=== PATIENT | male | born 1990 | race Caucasian/White ===

== ENCOUNTER 2023-01-31 10:54 | Outpatient (OUT) | payer MEDICARE, MEDICAID, SELFPAY ==
--- NOTE | 2023-01-31 11:04 | XR_ITS ---
[address] [address] Patient Name: JOHNNY DEVINE MRN: [id number] date: 1990 Sex: M Assigned Patient Location: RAD Current Patient Location: [facility] Accession/Order Number: [id number] Exam Date: 01/31/2023 11:15 Report Date: 01/31/2023 12:09 At the request of: AMINA CRANE Procedure: XR DEXA axial skeleton EXAMINATION: XR DEXA axial skeleton HISTORY: Osteoporosis COMPARISON: DEXA bone densitometry 12/27/2020 TECHNIQUE: Dual-energy X-ray absorptiometry (DXA) was performed. FINDINGS: SPINE ANALYSIS: Average bone mineral density is 0.880 g/cm2. T-score (standard deviation relative to young adult mean): -2.8 . -0.9% change since prior study. HIP ANALYSIS: Lowest bone mineral density is within the femoral trochanter, 0.709 g/cm2. T-score (standard deviation relative to young adult mean): -2.0 . -5.9% change since prior study. IMPRESSION: [employer] Classification: Osteoporosis - High Fracture Risk Electronically authenticated by: EPIFANIO NYE Date: 01/31/2023 12:09
== END 2023-01-31 10:55 ==
PROVIDERS: PCP Family Medicine; Visit Provider Family Medicine
DX: M81.0 Age-related osteoporosis without current pathological fracture (principal)
CPT/HCPCS: 77080

== ENCOUNTER 2023-02-28 06:57 | Outpatient (OUT) | payer MEDICARE, MEDICAID, SELFPAY ==
[2023-02-28 07:40] LABS: Valproic Acid 71.9 ug/mL (50.0-100.0)
== END 2023-02-28 06:58 | disposition home or self-care (01) ==
LOC: LAB 06:57
PROVIDERS: PCP Family Medicine; Visit Provider Family Medicine
DX: Z79.899 Other long term (current) drug therapy (principal)
CPT/HCPCS: 36415; 80164

== ENCOUNTER 2023-08-23 20:55 | Emergency (ER) | payer MEDICARE, MEDICAID, SELFPAY ==
[2023-08-23] VITALS (27 sets, daily range): BP systolic 112–147; BP diastolic 80–111; PULSE 60–93; RESP 13–31; TEMP 36.6; O2SAT 67–100
--- NOTE | 2023-08-23 21:13 | XR_ITS ---
[address] [address] Patient Name: JOHNNY DEVINE MRN: [id number] date: 1990 Sex: M Assigned Patient Location: ER Current Patient Location: ER Accession/Order Number: [id number] Exam Date: 08/23/2023 22:20 Report Date: 08/23/2023 22:40 At the request of: IBAN GRIFFITH Procedure: XR chest 1V EXAM: XR chest 1V HISTORY: Cough COMPARISON: Chest x-ray 09/15/2020 TECHNIQUE: Single AP radiograph of the chest FINDINGS: Low lung volumes. No pneumothorax, pleural effusion or consolidation. Normal heart size. No acute osseous abnormality. XR/XR chest 1V IMPRESSION: No acute cardiopulmonary process. Electronically authenticated by: ADAM GOTTLIEB Date: 08/23/2023 22:40
--- NOTE | 2023-08-23 21:13 | ECG_ITS ---
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
--- NOTE | 2023-08-23 21:19 | ED.GENADUL1 ---
Documented by User: BETI Yoder 08/23/23 22:50 HPI - General Adult General Chief complaint: Altered Mental Status Stated complaint: Altered Mental Status Time Seen by Provider: 08/23/23 21:13 Source: patient Mode of arrival: ambulance Limitations: no limitations History of Present Illness HPI narrative: Patient is a 33-year-old male with a history of profound developmental delay who presents to the emergency department by ambulance for the evaluation of nasal breathing and weakness. His residential called to report that the patient had significant nasal congestion and they were concerned about his breathing, he was ambulatory but seemed less responsive with no falls or injuries. Patient's aunt is his guardian, she also called the ER to say that she visited the patient 2 days ago and thought that he was developing upper respiratory symptoms but the caregivers at the residential were not concerned for this. Patient has had no objective fevers. Vital signs at the residential were normal. EMS reports decreased responsiveness although on arrival to the ER, the patient is hitting his abdomen which is one of his typical behaviors. Related Data Home Medications Medication Instructions Recorded Confirmed acetaminophen 325 mg tablet 650 mg PO Q4H PRN fever or pain 08/23/23 08/23/23 (Tactinal) atorvastatin 10 mg tablet 10 mg PO DAILY 08/23/23 08/23/23 benzonatate 100 mg capsule 100 mg PO Q8H PRN cough 08/23/23 08/23/23 bisacodyl 10 mg rectal suppository 10 mg DC Q5D PRN constipation 08/23/23 08/23/23 calcium carbonate 500 mg-vitamin 1 tab PO BID 08/23/23 08/23/23 D3 5 mcg (200 unit) tablet (Oyster Shell Calcium-Vitamin D3) clonidine HCl 0.2 mg tablet 0.2 mg PO TID 08/23/23 08/23/23 denosumab 60 mg/mL subcutaneous 60 mg subcut .[id number] 08/23/23 08/23/23 syringe (Prolia) dihydroxyaluminum sodium carb 334 668 mg PO Q4H PRN upset stomach 08/23/23 08/23/23 mg chewable tablet divalproex 125 mg capsule,delayed 500 mg PO BID 08/23/23 08/23/23 release sprinkle famotidine 20 mg tablet 20 mg PO BID 08/23/23 08/23/23 fluticasone propionate 50 2 spray intranasal .every morning 08/23/23 08/23/23 mcg/actuation nasal spray,suspension guaifenesin 400 mg tablet (Chest 400 mg PO .daily morning 08/23/23 08/23/23 Congestion Relief) levothyroxine 112 mcg tablet 112 mcg PO DAILY 08/23/23 08/23/23 linaclotide 290 mcg capsule 290 mcg PO DAILY 08/23/23 08/23/23 (Linzess) lithium carbonate 300 mg capsule 300 mg PO BID 08/23/23 08/23/23 loperamide 2 mg capsule 2 mg PO .COMPLEX PRN loose stool 08/23/23 08/23/23 (Anti-Diarrheal (loperamide)) lorazepam 2 mg tablet 2 mg PO TID-QID 08/23/23 08/23/23 naltrexone 50 mg tablet 100 mg PO BID 08/23/23 08/23/23 polyethylene glycol 3350 17 17 g PO DAILY 08/23/23 08/23/23 gram/dose oral powder quetiapine 200 mg tablet 200 mg PO TID 08/23/23 08/23/23 risperidone 3 mg tablet 3 mg PO BID 08/23/23 08/23/23 sertraline 100 mg tablet 100 mg PO DAILY 08/23/23 08/23/23 sertraline 50 mg tablet 50 mg PO DAILY 08/23/23 08/23/23 Allergies Allergy/AdvReac Type Severity Reaction Status Date / Time clarithromycin [From Biaxin] AdvReac Severe Abdominal Verified 08/23/23 21:37 Pain biaxin AdvReac Abdominal Uncoded 08/23/23 21:36 Pain Review of Systems ROS Constitutional Denies: fever Ears, nose, mouth, and throat Reports: nasal congestion Respiratory Reports: cough; Denies: shortness of breath Gastrointestinal Denies: vomiting or diarrhea Integumentary/Breast Denies: rash Endocrine Denies: excessive urination [facility] Medical History (Updated 08/24/23 @ 01:56 by Shanna Alanis MD) 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 - Other developmental disorders of scholastic skills (ICD-10) Osteoporosis ?M81.0 - Age-related osteoporosis without current pathological fracture (ICD-10) Cataract ?H26.9 - Unspecified cataract (ICD-10) ADHD ?F90.9 - Attention-deficit hyperactivity disorder, unspecified type (ICD-10) Bipolar 1 disorder ?F31.9 - Bipolar disorder, unspecified (ICD-10) High cholesterol ?E78.00 - Pure hypercholesterolemia, unspecified (ICD-10) Hypothyroid ?E03.9 - Hypothyroidism, unspecified (ICD-10) OCD (obsessive compulsive disorder) ?F42.9 - Obsessive-compulsive disorder, unspecified (ICD-10) Autism ?F84.0 - Autistic disorder (ICD-10) Exam Narrative Exam Narrative: Gen.: Awake, alert, in no distress Head: Normocephalic, atraumatic; well-healed significant scar to the forehead ENT: Moist mucous membranes; dried rhinorrhea in the nostrils with nasal respiration Respiratory: No respiratory distress, lungs clear bilaterally; no wheezing or rhonchi Cardio: Regular rate and rhythm Gastrointestinal: Abdomen is soft, nondistended and nontender to palpation Extremities: Moves extremities equally Psych: Nonverbal, moves extremities independently, does not respond to commands Neuro: No focal neuro deficit Skin: Warm, dry, intact Constitutional Vital Signs, click to edit/add: Last Vital Signs Temp 97.8 F 08/23/23 20:57 Pulse 90 08/24/23 01:20 Resp 17 08/24/23 01:20 BP 115/88 08/24/23 01:30 Pulse Ox 89 L 08/24/23 01:30 O2 Del Method Room Air 08/23/23 21:28 Course Vital Signs Vital signs: Vital Signs Temperature 97.8 F 08/23/23 20:57 Pulse Rate 77 08/23/23 20:57 Respiratory Rate 18 08/23/23 20:57 Pulse Oximetry 99 08/23/23 20:57 Temperature 97.8 F 08/23/23 20:57 Pulse Rate 90 08/24/23 01:20 Respiratory Rate 17 08/24/23 01:20 Blood Pressure 115/88 08/24/23 01:30 Pulse Oximetry 89 L 08/24/23 01:30 Oxygen Delivery Method Room Air 08/23/23 21:28 Medical Decision Making MDM Narrative Medical decision making narrative: 2250: IV established with labs drawn, blood cultures. Straight catheterization for urine was unsuccessful due to the patient's genital anatomy. Urine bag was applied. Chest x-ray shows no evidence of acute cardiopulmonary changes. Labs are pending. Vital signs are stable at this time. Case is turned over to attending physician for disposition at this time. Medical Records Medical records reviewed: Yes I reviewed the patient's medical records Lab Data Lab results reviewed: Yes I reviewed the patient's lab results Labs: Lab Results 08/23/23 08/23/23 08/24/23 Range/Units 21:30 21:59 01:25 WBC 7.1 (4.0-11.0) 10^3/uL RBC 3.95 L (4.70-6.10) 10^6/uL Hgb 10.7 L (14.0-18.0) g/dL Hct 35.0 L (42.0-54.0) % MCV 88.6 (80.0-94.0) fL MCH 27.1 (25.9-34.0) pg MCHC 30.6 (29.9-35.2) g/dL RDW 13.8 (11.0-15.0) % Plt Count 164 (150-450) 10^3/uL MPV 10.2 (9.5-13.5) fL Neut % (Auto) 62.6 (43.0-75.0) % Lymph % (Auto) 22.1 (20.5-60.0) % Bibb % (Auto) 11.8 (1.7-12.0) % Eos % (Auto) 2.3 (0.9-7.0) % Baso % (Auto) 0.4 (0.2-2.0) % Neut # (Auto) 4.4 (1.4-6.5) 10^3/uL Lymph # (Auto) 1.6 (1.2-3.8) 10^3/uL Bibb # (Auto) 0.8 (0.3-0.8) 10^3/uL Eos # (Auto) 0.2 (0.0-0.7) 10^3/uL Baso # (Auto) 0.0 (0.0-0.1) 10^3/uL Abs Immat Gran (auto) 0.06 H (0.00-0.03) 10^3/uL Imm/Tot Granulo (auto) 0.8 H (0.0-0.5) % PT 11.4 (9.0-11.6) sec INR 1.08 VBG pH 7.370 (7.330-7.430) VBG pCO2 47.5 (40.0-52.0) mmHg Sodium 138 (136-145) mmol/L Potassium 4.2 (3.5-5.1) mmol/L Chloride 105 (98-107) mmol/L Carbon Dioxide 28.2 (21.0-32.0) mmol/L Anion Gap 9.0 BUN 19.0 H (7.0-18.0) mg/dL Creatinine 0.84 (0.70-1.30) mg/dL Est GFR ( Amer) >60 (>=60) Est GFR (Non-Af Amer) >60 (>=60) BUN/Creatinine Ratio 22.6 Glucose 110 H (74-106) mg/dL Lactate 1.2 (0.4-2.0) mmol/L Calcium 8.9 (8.5-10.1) mg/dL Total Bilirubin 0.3 (0.2-1.0) mg/dL AST 17 (15-37) U/L ALT 19 (16-63) U/L Alkaline Phosphatase 47 (46-116) U/L Troponin I High Sens 8.3 (4.0-76.1) pg/mL Total Protein 7.4 (6.4-8.2) g/dL Albumin 3.2 L (3.4-5.0) g/dL Globulin 4.2 g/dL Albumin/Globulin Ratio 0.8 Urine Color Yellow (YELLOW) Urine Clarity Clear (CLEAR) Urine pH 7.0 (5.0-9.0) Ur Specific [place] 1.010 (1.005-1.025) Urine Protein Negative (NEG/TRACE) mg/dL Urine Glucose (UA) Negative (NEGATIVE) mg/dL Urine Ketones Negative (NEGATIVE) mg/dL Urine Occult Blood Negative (NEGATIVE) Urine Nitrite Negative (NEGATIVE) Urine Bilirubin Negative (NEGATIVE) Urine Urobilinogen 0.2 (0.2-1.0) EU/dL Ur Leukocyte Esterase Negative (NEGATIVE) Adenovirus (PCR) Not detected (NOT DETECTE) C. pneumoniae DNA (PCR) Not detected (NOT DETECTE) Coronavirus Type OC43 Not detected (NOT DETECTE) Coronavirus Type HKU1 Not detected (NOT DETECTE) Coronavirus Type 229E Not detected (NOT DETECTE) Coronavirus Type NL63 Not detected (NOT DETECTE) Human Metapneumovir PCR Not detected (NOT DETECTE) M. pneumoniae (PCR) Not detected (NOT DETECTE) Parainfluenza PCR Not detected (NOT DETECTE) Parainfluenza 2 (PCR) Not detected (NOT DETECTE) Parainfluenza 3 (PCR) Not detected (NOT DETECTE) Parainfluenza 4 (PCR) Not detected (NOT DETECTE) RSV (RT-PCR) Not detected (NOT DETECTE) Entero/Rhino (PCR) Not detected (NOT DETECTE) SARS-CoV-2 (PCR) Not detected (NOT DETECTE) Bordetella pertussis (PCR) Not detected (NOT DETECTE) B parapertussis DNA PCR Not detected (NOT DETECTE) Influenza Type A (PCR) Not detected (NOT DETECTE) Influenza Type B (PCR) Not detected (NOT DETECTE) Imaging Data Chest x-ray: Radiologist's impression: ITS Impressions Chest X-Ray 08/23/23 21:13 IMPRESSION: No acute cardiopulmonary process. Electronically authenticated by: ADAM GOTTLIEB Date: 08/23/2023 22:40 Discharge Plan Discharge Chief Complaint: Altered Mental Status Clinical Impression: Weakness, Viral URI Patient Disposition: Home, Self-Care Time of Disposition Decision: 01:56 Condition: Good Prescriptions / Home Meds: No Action atorvastatin 10 mg tablet 10 mg PO DAILY clonidine HCl 0.2 mg tablet 0.2 mg PO TID divalproex 125 mg capsule, delayed rel sprinkle 500 mg PO BID Patient Comments: takes 4 caps bid famotidine 20 mg tablet 20 mg PO BID fluticasone propionate 50 mcg/actuation spray,suspension 2 spray INTRANASAL .every morning guaifenesin [Chest Congestion Relief] 400 mg tablet 400 mg PO .daily morning levothyroxine 112 mcg tablet 112 mcg PO DAILY risperidone 3 mg tablet 3 mg PO BID sertraline 50 mg tablet 50 mg PO DAILY Patient Comments: takes with 100mg tab sertraline 100 mg tablet 100 mg PO DAILY Patient Comments: take with a 50mg tab Linzess 290 mcg capsule 290 mcg PO DAILY lithium carbonate 300 mg capsule 300 mg PO BID naltrexone 50 mg tablet 100 mg PO BID lorazepam 2 mg tablet 2 mg PO TID-QID calcium carbonate-vitamin D3 [Oyster Shell Calcium-Vit D3] 500 mg-5 mcg (200 unit) tablet 1 tab PO BID polyethylene glycol 3350 17 gram/dose powder 17 g PO DAILY quetiapine 200 mg tablet 200 mg PO TID Prolia 60 mg/mL syringe 60 mg SUBCUT .[id number] benzonatate 100 mg capsule 100 mg PO Q8H PRN (Reason: cough) bisacodyl 10 mg suppository 10 mg DC Q5D PRN (Reason: constipation) loperamide [Anti-Diarrheal (loperamide)] 2 mg capsule 2 mg PO .COMPLEX PRN (Reason: loose stool) Rx Instructions: 2 mg orally max of 8 [id number] PRN; acetaminophen [Tactinal] 325 mg tablet 650 mg PO Q4H PRN (Reason: fever or pain) dihydroxyaluminum sodium carb 334 mg tablet,chewable 668 mg PO Q4H PRN (Reason: upset stomach) Instructions: Upper Respiratory Infection (ED) Stand Alone Forms: Portal Instructions Referrals: AMINA CRANE DO [Primary Care Provider] - 1 week Documented by User: Shanna Alanis MD 08/24/23 01:56 HPI - General Adult General Chief complaint: Altered Mental Status Stated complaint: Altered Mental Status Time Seen by Provider: 08/23/23 21:13 Related Data Home Medications Medication Instructions Recorded Confirmed acetaminophen 325 mg tablet 650 mg PO Q4H PRN fever or pain 08/23/23 08/23/23 (Tactinal) atorvastatin 10 mg tablet 10 mg PO DAILY 08/23/23 08/23/23 benzonatate 100 mg capsule 100 mg PO Q8H PRN cough 08/23/23 08/23/23 bisacodyl 10 mg rectal suppository 10 mg DC Q5D PRN constipation 08/23/23 08/23/23 calcium carbonate 500 mg-vitamin 1 tab PO BID 08/23/23 08/23/23 D3 5 mcg (200 unit) tablet (Oyster Shell Calcium-Vitamin D3) clonidine HCl 0.2 mg tablet 0.2 mg PO TID 08/23/23 08/23/23 denosumab 60 mg/mL subcutaneous 60 mg subcut .[id number] 08/23/23 08/23/23 syringe (Prolia) dihydroxyaluminum sodium carb 334 668 mg PO Q4H PRN upset stomach 08/23/23 08/23/23 mg chewable tablet divalproex 125 mg capsule,delayed 500 mg PO BID 08/23/23 08/23/23 release sprinkle famotidine 20 mg tablet 20 mg PO BID 08/23/23 08/23/23 fluticasone propionate 50 2 spray intranasal .every morning 08/23/23 08/23/23 mcg/actuation nasal spray,suspension guaifenesin 400 mg tablet (Chest 400 mg PO .daily morning 08/23/23 08/23/23 Congestion Relief) levothyroxine 112 mcg tablet 112 mcg PO DAILY 08/23/23 08/23/23 linaclotide 290 mcg capsule 290 mcg PO DAILY 08/23/23 08/23/23 (Linzess) lithium carbonate 300 mg capsule 300 mg PO BID 08/23/23 08/23/23 loperamide 2 mg capsule 2 mg PO .COMPLEX PRN loose stool 08/23/23 08/23/23 (Anti-Diarrheal (loperamide)) lorazepam 2 mg tablet 2 mg PO TID-QID 08/23/23 08/23/23 naltrexone 50 mg tablet 100 mg PO BID 08/23/23 08/23/23 polyethylene glycol 3350 17 17 g PO DAILY 08/23/23 08/23/23 gram/dose oral powder quetiapine 200 mg tablet 200 mg PO TID 08/23/23 08/23/23 risperidone 3 mg tablet 3 mg PO BID 08/23/23 08/23/23 sertraline 100 mg tablet 100 mg PO DAILY 08/23/23 08/23/23 sertraline 50 mg tablet 50 mg PO DAILY 08/23/23 08/23/23 Allergies Allergy/AdvReac Type Severity Reaction Status Date / Time clarithromycin [From Biaxin] AdvReac Severe Abdominal Verified 08/23/23 21:37 Pain biaxin AdvReac Abdominal Uncoded 08/23/23 21:36 Pain PFSH PFSH Medical History (Updated 08/24/23 @ 01:56 by Shanna Alanis MD) 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 - Other developmental disorders of scholastic skills (ICD-10) Osteoporosis ?M81.0 - Age-related osteoporosis without current pathological fracture (ICD-10) Cataract ?H26.9 - Unspecified cataract (ICD-10) ADHD ?F90.9 - Attention-deficit hyperactivity disorder, unspecified type (ICD-10) Bipolar 1 disorder ?F31.9 - Bipolar disorder, unspecified (ICD-10) High cholesterol ?E78.00 - Pure hypercholesterolemia, unspecified (ICD-10) Hypothyroid ?E03.9 - Hypothyroidism, unspecified (ICD-10) OCD (obsessive compulsive disorder) ?F42.9 - Obsessive-compulsive disorder, unspecified (ICD-10) Autism ?F84.0 - Autistic disorder (ICD-10) Exam Constitutional Vital Signs, click to edit/add: Last Vital Signs Temp 97.8 F 08/23/23 20:57 Pulse 90 08/24/23 01:20 Resp 17 08/24/23 01:20 BP 115/88 08/24/23 01:30 Pulse Ox 89 L 08/24/23 01:30 O2 Del Method Room Air 08/23/23 21:28 Course Vital Signs Vital signs: Vital Signs Temperature 97.8 F 08/23/23 20:57 Pulse Rate 77 08/23/23 20:57 Respiratory Rate 18 08/23/23 20:57 Pulse Oximetry 99 08/23/23 20:57 Temperature 97.8 F 08/23/23 20:57 Pulse Rate 90 08/24/23 01:20 Respiratory Rate 17 08/24/23 01:20 Blood Pressure 115/88 08/24/23 01:30 Pulse Oximetry 89 L 08/24/23 01:30 Oxygen Delivery Method Room Air 08/23/23 21:28 Medical Decision Making MDM Narrative Medical decision making narrative: 2250: IV established with labs drawn, blood cultures. Straight catheterization for urine was unsuccessful due to the patient's genital anatomy. Urine bag was applied. Chest x-ray shows no evidence of acute cardiopulmonary changes. Labs are pending. Vital signs are stable at this time. Case is turned over to attending physician for disposition at this time. Patient was seen and evaluated in conjunction with the physician neurology physician assistant. Please refer to her full H and P. The patient has a history of profound developmental delay and there was concern for upper respiratory infection and possibly infection. Emergency Department he has alert and exhibiting his typical behavior. He is nonverbal. An IV was placed and he was medicated with IV fluids. Labs are reviewed. His respiratory panel was negative. He has a normal white count, is mildly anemic, has a normal venous blood gas and electrolytes, lactic acid is normal. CXR is negative for acute findings. He was assisted to a bedside commode and urinated without difficulty. Urine was collected and sent to the lab and is clear. He received IVF and has remained afebrile and hemodynamically stable in the ED. He has not had any episodes of somnolence or hypoxia in the ED. Medical Records Medical records narrative: [place] [address] XRay Report Signed Patient: JOHNNY DEVINE MR#: [id number] : 1990 Acct:[id number] Age/Sex: 33 / M ADM Date: 08/23/23 Loc: ER Attending Dr: Ordering Physician: Iban Griffith Date of Service: 08/23/23 Procedure(s): XR chest 1V Accession Number(s): [id number] cc: AMINA CRANE D.O.; Iban Griffith~ [facility] [place] [address] Patient Name: JOHNNY DEVINE MRN: [facility]:[id number] date: 1990 Sex: M Assigned Patient Location: ER Current Patient Location: ER Accession/Order Number: [id number] Exam Date: 08/23/2023 22:20 Report Date: 08/23/2023 22:40 At the request of: IBAN GRIFFITH Procedure: XR chest 1V EXAM: XR chest 1V HISTORY: Cough COMPARISON: Chest x-ray 09/15/2020 TECHNIQUE: Single AP radiograph of the chest FINDINGS: Low lung volumes. No pneumothorax, pleural effusion or consolidation. Normal heart size. No acute osseous abnormality. XR/XR chest 1V IMPRESSION: No acute cardiopulmonary process. Electronically authenticated by: ADAM GOTTLIEB Date: 08/23/2023 22:40 Lab Data Labs: Lab Results 08/23/23 08/23/23 08/24/23 Range/Units 21:30 21:59 01:25 WBC 7.1 (4.0-11.0) 10^3/uL RBC 3.95 L (4.70-6.10) 10^6/uL Hgb 10.7 L (14.0-18.0) g/dL Hct 35.0 L (42.0-54.0) % MCV 88.6 (80.0-94.0) fL MCH 27.1 (25.9-34.0) pg MCHC 30.6 (29.9-35.2) g/dL RDW 13.8 (11.0-15.0) % Plt Count 164 (150-450) 10^3/uL MPV 10.2 (9.5-13.5) fL Neut % (Auto) 62.6 (43.0-75.0) % Lymph % (Auto) 22.1 (20.5-60.0) % Bibb % (Auto) 11.8 (1.7-12.0) % Eos % (Auto) 2.3 (0.9-7.0) % Baso % (Auto) 0.4 (0.2-2.0) % Neut # (Auto) 4.4 (1.4-6.5) 10^3/uL Lymph # (Auto) 1.6 (1.2-3.8) 10^3/uL Bibb # (Auto) 0.8 (0.3-0.8) 10^3/uL Eos # (Auto) 0.2 (0.0-0.7) 10^3/uL Baso # (Auto) 0.0 (0.0-0.1) 10^3/uL Abs Immat Gran (auto) 0.06 H (0.00-0.03) 10^3/uL Imm/Tot Granulo (auto) 0.8 H (0.0-0.5) % PT 11.4 (9.0-11.6) sec INR 1.08 VBG pH 7.370 (7.330-7.430) VBG pCO2 47.5 (40.0-52.0) mmHg Sodium 138 (136-145) mmol/L Potassium 4.2 (3.5-5.1) mmol/L Chloride 105 (98-107) mmol/L Carbon Dioxide 28.2 (21.0-32.0) mmol/L Anion Gap 9.0 BUN 19.0 H (7.0-18.0) mg/dL Creatinine 0.84 (0.70-1.30) mg/dL Est GFR ( Amer) >60 (>=60) Est GFR (Non-Af Amer) >60 (>=60) BUN/Creatinine Ratio 22.6 Glucose 110 H (74-106) mg/dL Lactate 1.2 (0.4-2.0) mmol/L Calcium 8.9 (8.5-10.1) mg/dL Total Bilirubin 0.3 (0.2-1.0) mg/dL AST 17 (15-37) U/L ALT 19 (16-63) U/L Alkaline Phosphatase 47 (46-116) U/L Troponin I High Sens 8.3 (4.0-76.1) pg/mL Total Protein 7.4 (6.4-8.2) g/dL Albumin 3.2 L (3.4-5.0) g/dL Globulin 4.2 g/dL Albumin/Globulin Ratio 0.8 Urine Color Yellow (YELLOW) Urine Clarity Clear (CLEAR) Urine pH 7.0 (5.0-9.0) Ur Specific [place] 1.010 (1.005-1.025) Urine Protein Negative (NEG/TRACE) mg/dL Urine Glucose (UA) Negative (NEGATIVE) mg/dL Urine Ketones Negative (NEGATIVE) mg/dL Urine Occult Blood Negative (NEGATIVE) Urine Nitrite Negative (NEGATIVE) Urine Bilirubin Negative (NEGATIVE) Urine Urobilinogen 0.2 (0.2-1.0) EU/dL Ur Leukocyte Esterase Negative (NEGATIVE) Adenovirus (PCR) Not detected (NOT DETECTE) C. pneumoniae DNA (PCR) Not detected (NOT DETECTE) Coronavirus Type OC43 Not detected (NOT DETECTE) Coronavirus Type HKU1 Not detected (NOT DETECTE) Coronavirus Type 229E Not detected (NOT DETECTE) Coronavirus Type NL63 Not detected (NOT DETECTE) Human Metapneumovir PCR Not detected (NOT DETECTE) M. pneumoniae (PCR) Not detected (NOT DETECTE) Parainfluenza PCR Not detected (NOT DETECTE) Parainfluenza 2 (PCR) Not detected (NOT DETECTE) Parainfluenza 3 (PCR) Not detected (NOT DETECTE) Parainfluenza 4 (PCR) Not detected (NOT DETECTE) RSV (RT-PCR) Not detected (NOT DETECTE) Entero/Rhino (PCR) Not detected (NOT DETECTE) SARS-CoV-2 (PCR) Not detected (NOT DETECTE) Bordetella pertussis (PCR) Not detected (NOT DETECTE) B parapertussis DNA PCR Not detected (NOT DETECTE) Influenza Type A (PCR) Not detected (NOT DETECTE) Influenza Type B (PCR) Not detected (NOT DETECTE) Imaging Data Chest x-ray: Radiologist's impression: ITS Impressions Chest X-Ray 08/23/23 21:13 IMPRESSION: No acute cardiopulmonary process. Electronically authenticated by: ADAM GOTTLIEB Date: 08/23/2023 22:40 ECG Data Attestation: I personally reviewed and interpreted this ECG as follows: (Since of 79 beats for minute, regular baseline due to patient movement, moderate right axis deviation, no acute ST segment elevation or T-wave inversion) Discharge Plan Discharge Chief Complaint: Altered Mental Status Clinical Impression: Weakness, Viral URI Patient Disposition: Home, Self-Care Time of Disposition Decision: 01:56 Condition: Good Prescriptions / Home Meds: No Action atorvastatin 10 mg tablet 10 mg PO DAILY clonidine HCl 0.2 mg tablet 0.2 mg PO TID divalproex 125 mg capsule, delayed rel sprinkle 500 mg PO BID Patient Comments: takes 4 caps bid famotidine 20 mg tablet 20 mg PO BID fluticasone propionate 50 mcg/actuation spray,suspension 2 spray INTRANASAL .every morning guaifenesin [Chest Congestion Relief] 400 mg tablet 400 mg PO .daily morning levothyroxine 112 mcg tablet 112 mcg PO DAILY risperidone 3 mg tablet 3 mg PO BID sertraline 50 mg tablet 50 mg PO DAILY Patient Comments: takes with 100mg tab sertraline 100 mg tablet 100 mg PO DAILY Patient Comments: take with a 50mg tab Linzess 290 mcg capsule 290 mcg PO DAILY lithium carbonate 300 mg capsule 300 mg PO BID naltrexone 50 mg tablet 100 mg PO BID lorazepam 2 mg tablet 2 mg PO TID-QID calcium carbonate-vitamin D3 [Oyster Shell Calcium-Vit D3] 500 mg-5 mcg (200 unit) tablet 1 tab PO BID polyethylene glycol 3350 17 gram/dose powder 17 g PO DAILY quetiapine 200 mg tablet 200 mg PO TID Prolia 60 mg/mL syringe 60 mg SUBCUT .[id number] benzonatate 100 mg capsule 100 mg PO Q8H PRN (Reason: cough) bisacodyl 10 mg suppository 10 mg DC Q5D PRN (Reason: constipation) loperamide [Anti-Diarrheal (loperamide)] 2 mg capsule 2 mg PO .COMPLEX PRN (Reason: loose stool) Rx Instructions: 2 mg orally max of 8 [id number] PRN; acetaminophen [Tactinal] 325 mg tablet 650 mg PO Q4H PRN (Reason: fever or pain) dihydroxyaluminum sodium carb 334 mg tablet,chewable 668 mg PO Q4H PRN (Reason: upset stomach) Instructions: Upper Respiratory Infection (ED) Stand Alone Forms: Portal Instructions Referrals: AMINA CRANE DO [Primary Care Provider] - 1 week
[2023-08-23] MEDS: 0.9 % SODIUM CHLORIDE 1,000 ML 999 ML IV (21:33)
[2023-08-23 21:52] LABS: Adenovirus NOT DETECTED (NOT DETECTE); Bordetella parapertussis NOT DETECTED (NOT DETECTE); Coronavirus 229E NOT DETECTED (NOT DETECTE); Coronavirus HKU1 NOT DETECTED (NOT DETECTE); Coronavirus NL63 NOT DETECTED (NOT DETECTE); Coronavirus OC43 NOT DETECTED (NOT DETECTE); Human Metapneumovirus NOT DETECTED (NOT DETECTE); Human Rhinovirus/Enterovirus NOT DETECTED (NOT DETECTE); Influenza A NOT DETECTED (NOT DETECTE); Influenza B NOT DETECTED (NOT DETECTE); Mycoplasma pneumoniae NOT DETECTED (NOT DETECTE); Parainfluenza Virus 1 NOT DETECTED (NOT DETECTE); Parainfluenza Virus 2 NOT DETECTED (NOT DETECTE); Parainfluenza Virus 3 NOT DETECTED (NOT DETECTE); Parainfluenza Virus 4 NOT DETECTED (NOT DETECTE); Respiratory Syncytial Virus NOT DETECTED (NOT DETECTE); SARS-CoV-2 NOT DETECTED (NOT DETECTE)
--- NOTE | 2023-08-23 22:17 | PC.NURSE ---
Pt is a resident of [facility] and is sent over today for evaluation of decreased mentation and respiratory issues. Per staff, upon waking him tonight to give his meds, he was noted to be very nasally. He got up and staff state he appeared weak and less alert than his norm.
--- NOTE | 2023-08-23 22:24 | SUR.HOLD ---
Attempted to insert a straight catheter to obtain urine sample but pt has a very inverted penis and we were unable to place catheter. Pt was shaved and a u bag placed over cleaned genitals, to get specimen.
[2023-08-23 22:30] LABS: Basophils Percent Auto 0.4 % (0.2-2.0); Eosinophils Absolute Auto 0.2 10^3/uL (0.0-0.7); Eosinophils Percent Auto 2.3 % (0.9-7.0); Hemoglobin 10.7 g/dL (14.0-18.0); Immature Granulocytes Abs Auto 0.06 10^3/uL (0.00-0.03); Immature Granulocytes Pct Auto 0.8 % (0.0-0.5); Lymphocytes Absolute Auto 1.6 10^3/uL (1.2-3.8); Lymphocytes Percent Auto 22.1 % (20.5-60.0); Mean Corpuscular HGB Conc 30.6 g/dL (29.9-35.2); Mean Corpuscular Hemoglobin 27.1 pg (25.9-34.0); Mean Corpuscular Volume 88.6 fL (80.0-94.0); Mean Platelet Volume 10.2 fL (9.5-13.5); Monocytes Absolute Auto 0.8 10^3/uL (0.3-0.8); Monocytes Percent Auto 11.8 % (1.7-12.0); Neutrophils Absolute Auto 4.4 10^3/uL (1.4-6.5); Neutrophils Percent Auto 62.6 % (43.0-75.0); PCO2 VBG 47.5 mmHg (40.0-52.0); Platelet Count 164 10^3/uL (150-450); Red Blood Count 3.95 10^6/uL (4.70-6.10); Red Cell Distribution Width 13.8 % (11.0-15.0); White Blood Count 7.1 10^3/uL (4.0-11.0)
[2023-08-23 22:43] LABS: INR 1.08; Prothrombin Time 11.4 sec (9.0-11.6)
[2023-08-23 22:50] LABS: Lactate/Lactic Acid 1.2 mmol/L (0.4-2.0)
[2023-08-23 22:56] LABS: Alanine Aminotransferase 19 U/L (16-63); Albumin Globulin Ratio 0.8; Albumin Level 3.2 g/dL (3.4-5.0); Alkaline Phosphatase 47 U/L (46-116); Aspartate Amino Transferase 17 U/L (15-37); BUN Creatinine Ratio 22.6; Bilirubin Total 0.3 mg/dL (0.2-1.0); Calcium 8.9 mg/dL (8.5-10.1); Carbon Dioxide 28.2 mmol/L (21.0-32.0); Chloride 105 mmol/L (98-107); Estimated GFR (African America >60 (>=60); Estimated GFR (Non-African Ame >60 (>=60); Globulin 4.2 g/dL; Glucose 110 mg/dL (74-106); Potassium 4.2 mmol/L (3.5-5.1); Sodium 138 mmol/L (136-145); Total Protein 7.4 g/dL (6.4-8.2); Troponin I High Sensitivity 8.3 pg/mL (4.0-76.1)
[2023-08-24] VITALS (13 sets, daily range): BP systolic 115–144; BP diastolic 83–94; PULSE 58–90; RESP 14–20; O2SAT 89–100
[2023-08-24 01:41] LABS: Bilirubin Urine NEGATIVE (NEGATIVE); Blood Urine NEGATIVE (NEGATIVE); Clarity Urine CLEAR (CLEAR); Color Urine YELLOW (YELLOW); Glucose Urine UA NEGATIVE (NEGATIVE); Ketones Urine NEGATIVE (NEGATIVE); Leukocyte Esterase Urine NEGATIVE (NEGATIVE); Nitrite Urine NEGATIVE (NEGATIVE); Protein Urine NEGATIVE (NEG/TRACE); Urobilinogen Urine 0.2 EU/dL (0.2-1.0)
[2023-08-24 01:44] LABS: Urine Microscopic Indicated NO
== END 2023-08-24 02:52 | disposition home or self-care (01) ==
PROVIDERS: Physician Assistant; Emergency Provider Emergency Medicine; PCP Family Medicine
DX: J06.9 Acute upper respiratory infection, unspecified (principal); R53.1 Weakness; F81.89 Other developmental disorders of scholastic skills; M81.0 Age-related osteoporosis without current pathological fracture; F90.9 Attention-deficit hyperactivity disorder, unspecified type; F31.9 Bipolar disorder, unspecified; E78.00 Pure hypercholesterolemia, unspecified; E03.9 Hypothyroidism, unspecified; F42.9 Obsessive-compulsive disorder, unspecified; F84.0 Autistic disorder; Z20.822 Contact with and (suspected) exposure to COVID-19; Z79.899 Other long term (current) drug therapy; Z79.890 Hormone replacement therapy
CPT/HCPCS: 0202U; 36415; 71045; 80053; 81003; 82800; 83605; 84484; 85025; 85610; 87040; 93005; 99285

== ENCOUNTER 2023-10-27 22:21 | Emergency (ER) | payer MEDICARE, MEDICAID, SELFPAY ==
[2023-10-27] VITALS (11 sets, daily range): BP systolic 142–160; BP diastolic 98–111; PULSE 89–103; RESP 15–40; TEMP 36.7; O2SAT 95–100; BMI 31.3
--- NOTE | 2023-10-27 22:26 | ECG_ITS ---
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
--- OUTSIDE RECORDS SUMMARY | 2023-10-27 22:28 | XMS_ITS | CCD ---
Author Name Unknown Address [address] [place] [address] Organization [facility] Care Team Providers Care Building Construction Superintendent Name Role Phone Jewell MATA, Gallagher Unavailable [phone] Unavailable Primary Care Provider UnavailROBERT Livingston Attending Unavailable Unavailable Primary Care Provider Unavailabl e CRANE, DR AMINA Pollack Primary Care Unavailable CRANE, DR AMINA Pollack Admitting Unavailable CRANE, DR AMINA Pollack Attending Unavailable CRANE, DR AMINA Pollack Consulting Unavailable CRANE, DR AMINA Pollack Primary Care Unavailable CRANE, DR AMINA Pollack Admitting Unavailable CRANE, DR AMINA Pollack Attending Unavailable CRANE, DR AMINA Pollack Consulting Unavailable CRANE, DR AMINA Pollack Consulting Unavailable CRANE, DR AMINA Pollack Primary Care Unavailable CRANE, DR AMINA Pollack Admitting Unavailable CRANE, DR AMINA Pollack Attending Unavailable CRANE, DR AMINA Pollack Consulting Unavailable CRANE, DR AMINA Pollack Admitting Unavailable RCANE, DR AMINA Pollack Primary Care Unavailable CRANE, DR AMINA Pollack Attending Unavailable CRANE, DR AMINA Pollack Admitting Unavailable CRANE, DR AMINA Pollack Primary Care Unavailable CRANE, DR AMINA Pollack Attending Unavailable CRANE, DR AMINA Pollack Consulting Unavailable CRANE, DR AMINA Pollack Admitting Unavailable CRANE, DR AMINA Pollack Primary Care Unavailable CRANE, DR AMINA Pollack Attending Unavailable CRANE, DR AIMNA Pollack Consulting Unavailable CRANE, DR AMINA Pollack Admitting Unavailable CRANE, DR AMINA Pollack Primary Care Unavailable CRANE, DR AMINA Pollack Attending Unavailable CRANE, DR AMINA Pollack Consulting Unavailable CRANE, DR AMINA Pollack Admitting Unavailable CRANE, DR AMINA Pollack Primary Care Unavailable CRANE, DR AMINA Pollack Attending Unavailable CRANE, DR AMINA Pollack Consulting Unavailable Jewell MATA, Gallagher Unavailable CRANEAMINA Primary Care Physician [phone] AMINA CRANE Attending Unavailable AMINA CRANE Admitting Unavailable PROVIDER, UNKNOWN Admitting Unavailable CHANO BEYER Referring Unavailable PROVIDER, UNKNOWN Attending Unavailable PROVIDER, UNKNOWN Admitting Unavailable KIM HORTON Attending Unavailable AL-SAMANTHA, ALEXX Admitting Unavailable PROVIDER, UNKNOWN Attending Unavailable PROVIDER, UNKNOWN Attending Unavailable PROVIDER, UNKNOWN Admitting Unavailable PROVIDER, UNKNOWN Admitting Unavailable PROVIDER, UNKNOWN Attending Unavailable PROVIDER, UNKNOWN Admitting Unavailable PROVIDER, UNKNOWN Attending Unavailable AL-SAMANTHA, ALEXX Admitting Unavailable AL-SAMANTHA, ALEXX Attending Unavailable Allergies Allergy Classification Reported Allergen(s) Allergy Type Date of Onset Reaction(s) Facility (10 sources) Clarithromycin; Translations: [CLARITHROMYCIN] Propensity to adverse reactions to drug 06-12-20 18 Other [facility] Work Phone: (4 sources) Clarithromycin Drug Allergy 05-04-20 22 Other: See Comments [facility] (1 source) Clarithromycin Drug Allergy [facility] Repository Medications Current Medications Medication Drug Class(es) Dates Sig (Normalized) Sig (Original) atorvastatin 10 mg oral tablet (13 sources) HMG-CoA Reductase Inhibitor Start: 01-21-2021 atorvastatin (LIPITOR) 10 MG tablet benoxinate hydrochloride 4 mg/ml / fluorescein sodium 2.5 mg/ml ophthalmic solution (1 source) Diagnostic Dye Start: 05-04-2022 End: 05-04-2022 fluorescein-benox inate 0.25-0.4 % 1 Drop (FLURESS) benztropine mesylate 0.5 mg oral tablet (9 sources) Anticholinergic, Antihistamine take 1 tablet by mouth twice daily benztropine (COGENTIN) 0.5 MG tablet Take 0.5 mg by mouth 2 times daily. 0 Active calcium carbonate 1250 mg / cholecalciferol 200 unt oral tablet (13 sources) Vitamin D Start: 01-13-2021 take 1 tablet by mouth twice daily Calcium Carbonate-Vitamin D (Oyster Shell Calcium/D) 500-200 MG-UNIT TABS Take 1 Tablet by mouth 2 times daily. 0 01/13/2021 Active Comment on above: Take 1 tablet by linda twice daily. docusate sodium 100 mg oral capsule (9 sources) take 1 capsule by mouth twice daily docusate sodium (COLACE) 100 MG capsule Take 100 mg by mouth 2 times daily. 0 Active 12 hr guaiFENesin 600 mg extended release oral tablet (13 sources) Start: 01-13-2021 take 1 tablet by mouth twice daily Mucus Relief 600 MG SR tablet Take 600 mg by mouth 2 times daily. 0 01/13/2021 Active Comment on above: Take 600 mg by mouth twice daily. linaclotide 0.29 mg oral capsule (13 sources) Guanylate Cyclase-C Agonist Start: 07-09-2020 Linzess 290 MCG CAPS capsule Comment on above: Take 290 mcg by mout h once daily. metoprolol tartrate 50 mg oral tablet (13 sources) beta-Adrenergic Hardy Start: 01-21-2021 metoprolol (LOPRESSOR) 50 MG tablet polyethylene glycol 3350 01933 mg powder for oral solution (13 sources) Osmotic Laxative Start: 01-24-2021 take 17 g by mouth once daily in the morning ClearLax 17 GM/SCOOP powder TAKE 17G WITH LIQUID BY MOUTH DAILY IN THE MORNING 0 01/24/2021 Active Comment on above: TAKE 17G WITH LIQUID BY MOUTH DAILY IN THE MORNING sennosides, retirement 8.6 mg oral capsule (13 sources) Sennosides (SENNA) 8.6 MG CAPS Take by mouth. 0 Active Comment on above: Take by mouth. tropicamide 10 mg/ml ophthalmic solution (1 source) Anticholinergic Start: 05-04-2022 End: 05-04-2022 tropicamide 1 % 1 Drop (MYDRIACYL) Completed/Discontinued Medications Medication Drug Class(es) Dates Sig (Normalized) Sig (Original) calcium chloride 0.0014 meq/ml / potassium chloride 0.004 meq/ml / sodium chloride 0.103 meq/ml / sodium lactate 0.028 meq/ml injectable solution (1 source) Start: 07-16-2023 End: 07-16-2023 lactated ringers iv bolus clomiPRAMINE hydrochloride 75 mg oral capsule (13 sources) Tricyclic Antidepressant Start: 04-27-2022 clomiPRAMINE (ANAFRANIL) 75 mg capsule cloNIDine hydrochloride 0.2 mg oral tablet (13 sources) Central alpha-2 Adrenergic Agonist Start: 04-27-2022 cloNIDine HCl (CATAPRES) 0.2 mg tablet famotidine 20 mg oral tablet (13 sources) Histamine-2 Receptor Antagonist Start: 04-27-2022 famotidine (PEPCID) 20 mg tablet fluticasone propionate 0.05 mg/actuat metered dose nasal spray (13 sources) Corticosteroid Start: 03-21-2022 take 2 spray(s) nasal route once in the morning for congestion fluticasone (FLONASE) 50 mcg/actuation nasal spray INSTILL 2 SPRAYS PER NOSTRIL EVERY MORNING FOR SINUS CONGESTION 0 03/21/2022 Active FLUTICASONE PROP IONATE HFA INHALATION Inhale by mouth. 0 Active Comment on above: INSTILL 2 SPRAYS PER NOSTRIL EVERY MORNING FOR SINUS CONGESTION 24 hr guanFACINE 4 mg extended release oral tablet (20 sources) Central alpha-2 Adrenergic Agonist Start: 04-27-2022 guanFACINE (INTUNIV ER) 4 mg Tb24 Start: 01-21-2021 GuanFACINE HCl (TENEX) 4 MG er tablet guanfacine (TENE X) 1 MG tablet guanfacine 1 mg tablet 0 Active levothyroxine sodium 0.112 mg oral tablet (13 sources) l-Thyroxine Start: 04-27-2022 levothyroxine (SYNTHROID) 112 mcg tablet lithium carbonate 300 mg oral capsule (13 sources) Start: 04-27-2022 lithium carbon ate (ESKALITH) 300 mg capsule LORazepam 2 mg oral tablet (13 sources) Benzodiazepine Start: 04-11-2022 take 1 tablet by mouth three times daily LORazepam (ATIVAN) 2 mg tab TAKE ONE TABLET BY MOUTH 3 TIMES DAILY ATIVAN 0 04/11/2022 Active take 1 tablet by linda th every six hours as needed for anxiety lorazepam (ATIVAN) 2 MG tablet Take 2 mg by mouth every 6 hours as needed for Anxiety. 0 Active Comment on above: TAKE ONE TABLET BY M OUTH 3 TIMES DAILY ATIVAN naltrexone hydrochloride 50 mg oral tablet (13 sources) Opioid Antagonist Start: take 2 tablets by mouth twice daily naltrexone (TREXAN) 50 mg tablet TAKE TWO TABLETS BY MOUTH TWICE DAILY REVIA 0 04/19/2022 Active take 1 tablet by mouth once lainey y naltrexone (DEPADE) 50 MG tablet Take 50 mg by mouth daily. 0 Active Comment on above: TAKE TWO TABLETS BY MOUTH TWICE DAILY REVIA QUEtiapine 200 mg oral tablet (13 sources) Atypical Antipsychotic Start: 04-27-2022 QUEtiapine (SEROQUEL) 200 mg tablet risperiDONE 3 mg oral tablet (13 sources) Atypical Antipsychotic Start: 04-27-2022 risperiDONE (RISPERDAL) 3 mg tablet sertraline 100 mg oral tablet (13 sources) Serotonin Reuptake Inhibitor Start: 04-27-2022 sertraline (ZOLOFT) 100 mg tablet Problems Active Problems Problem Classification Problem Date Documented Date Episodic/Chronic Allergic reactions (1 source) Eczema 10-31-2013 Episodic Anxiety disorders (10 sources) Obsessive-compulsive disorder; Translations: [Obsessive-compulsive disorder, unspecified] Onset: 9 07-15-2019 Chronic Cardiac dysrhythmias (2 sources) Bradycardia; Translations: [Bradycardia, unspecified] Onset: 3 07-16-2023 Episodic Cataract (1 source) Senile combined form cataract of right eye; Translations: [Combined forms of age-related cataract, right eye] Chronic Developmental disorders (11 sources) Moderate intellectual disability; Translations: [Moderate intellectual disabilities] Onset: 9 07-15-2019 Chronic Disorders of lipid metabolism (1 source) Hypercholesterolemia 10-31-2013 Chronic Disorders of teeth and jaw (20 sources) Dental caries; Translations: [Dental caries, unspecified] Onset: 8 06-11-2018 Episodic Disorders usually diagnosed in infancy, childhood, or adolescence (10 sources) Autistic disorder; Translations: [Autistic disorder] Onset: 9 07-15-2019 Chronic Malaise and fatigue (9 sources) Weakness; Translations: [Other fatigue] Onset: 3 Episodic Mood disorders (13 sources) Bipolar disorder; Translations: [Bipolar disorder, unspecified] Onset: 9 07-15-2019 Chronic Osteoporosis (5 sources) Age-related osteoporosis without current pathological fracture; Translations: [AGE-REL OSTEOPOR W/O CURR PATH FX] Onset: 3 Chronic Other aftercare (5 sources) Other snf (current) drug therapy; Translations: [OTH GROUP HOME CURRENT DRUG THERAPY] Onset: 3 Episodic Other aftercare (1 source) Encounter for therapeutic drug level monitoring; Translations: [ENC THERAPEUTC DRUG LEVL MONITORING] Onset: 3 Episodic Other nervous system disorders (1 source) Does not speak; Translations: [Aphasia] 07-16-2023 Chronic Other nervous system disorders (1 source) Unsteadiness on feet; Translations: [UNSTEADINESS ON FEET] Onset: 3 Episodic Other screening for suspected conditions (not mental disorders or infectious disease) (2 sources) Other specified abnormal findings of blood chemistry; Translations: [Abnormal electrocardiogram [ECG] [EKG]] Onset: 2 Episodic Residual codes; unclassified (1 source) Disorientation, unspecified; Translations: [DISORIENTATION UNSPECIFIED] Onset: 3 Episodic Screening and history of mental health and substance abuse codes (1 source) History of neurodevelopmental disorder; Translations: [Personal history of other mental and behavioral disorders] 07-16-2023 Episodic Substance-related disorders (1 source) Other psychoactive substance use, unspecified, uncomplicated; Translations: [OTH PSYCHOACTIVE SBSTNC UNS UNCOMP] Onset: 3 Episodic Thyroid disorders (9 sources) Hypothyroidism; Translations: [Hypothyroidism, unspecified] Onset: 9 07-15-2019 Chronic Past or Other Problems Problem Classification Problem Date Documented Da te Episodic/Chronic Diseases of mouth; excluding dental (9 sources) Mucocele of lower lip; Translations: [Diseases of lips] Onset: 10-16-2019 06-07-2020 Episodic Other gastrointestinal disorders (9 sources) Chronic constipation; Translations: [Other constipation] Onset: 09-16-2018 07-13-2020 Episodic Other skin disorders (9 sources) Eruption; Translations: [Rash and other nonspecific skin eruption] Onset: 09-16-2018 07-13-2020 Episodic Results Test Name Value Interpretation Reference Range Facility Anesthesia Preprocedure Eval uationon 07-16-2023 Upkeep Worker Authentication Interface Message Text ASA: 2 No history of anesthetic complications PSE status: Had PSE NPO status: >8 hours Past Medical History and Review of Systems (Full ROS completed in PSE) Pulmonary - negative ROS Dental ROS (+) teeth problems Endo (+) hypothyroidism Neuro/Psych (+) bipolar disorder Comment: Severe autism Cardiovascular - negative ROS (+) Surgical risk: low; Cardiac condition: no apparent No previous ECG available GI/Hepatic/Renal (+) GERD Heme/Other - negative ROS Other ROS: - Floppy eyelid syndrome Physical Exam Airway TM distance: Adequate Micrognathia: Not present Jaw opening: Adequate Neck flexion: Adequate Dental PE (+) chipped teeth Pulmonary - pulmonary exam normal Comment: Chest clear to auscultation bilaterally Cardiovascular - cardiovascular exam normal Comment: RRR with S1S2; no murmurs, gallops, or rubs Neuro - neurological exam normal Comment: Awake, alert, oriented, No motor deficits and sensation grossly intact Plan Anesthesia risks / alternatives discussed pre-op Questions answered / anesthesia plan accepted Plan comment: Case Cancelled - see below Past medical history, surgical history, allergies, and medications reviewed. Pertinent laboratory tests, EKG, imaging, and consults reviewed and I have personally seen and evaluated the patient, repeating knox portions of the history and physical examination. Attestation: Anesthesia options were discussed with the patient and/or legal solar sales representative. The risks, benefits and alternatives were reviewed. Questions regarding anesthesia were answered. Patient and/or legal solar sales representative knows such anesthetics and procedures may be performed by Resident physicians, Certified Anesthesiologist Assistants, or Certified Nurse Anesthetists under the supervision of a physician. The patient /or the patient's legal solar sales representative agree with the plan for anesthesia. Once IV in and patient dressed, HR noted to be in the mid 30's with no spontaneous variation into the normal range. BP low normal with MAPs 60s. Pt is nonverbal and unable to provide details on symptoms. Pt's caregiver is at bedside and knows that he hasn't taken any medications today, but otherwise minimal information regarding medical management. She states he appears at his baseline, but he mostly is sedentary with minimal physical activity. EKG performed showing marked sinus jyothi, no AV conduction blockade. Reviewed previous vital signs and EKGs and this appears to be a new event. Sent to the ED for evaluation. I explained the reason elective surgeon should be cancelled today with his caregiver who understood. Normal [facility] BASIC METABOLIC PANELon 11-2 -2022 Anion gap [Moles/Vol] 15 mmol/L Normal 10-20 [facility] Comment on above: Performed By: #### C H8 #### [facility] [address] [place], [address] Calcium [Mass/Vol] 9.6 mg/dL Normal 8.6-10.3 [facility] Comment on above: Result Comment: Note updated reference ranges. Performed By: #### C H8 #### [facility] [address] [place], [address] Chloride [Moles/Vol] 104 mmol/L Normal 98-107 [facility] Comment on above: Result Comment: Note updated reference ranges. Performed By: #### C H8 #### [facility] [address] [place], [address] CO2 [Moles/Vol] 25 mmol/L Normal 21-31 [facility] Comment on above: Result Comment: Note updated reference ranges. Performed By: #### C H8 #### REPLACED BY [facility] [address] [place], [address] Creatinine [Mass/Vol] 0.94 mg/dL Normal 0.70-1.30 [facility] Comment on above: Result Comment: Note updated reference ranges. Performed By: #### C H8 #### REPLACED BY [facility] [address] [place], [address] ESTIMATED GFR (CKD-EPI) 112 mL/min/1.73sqm Normal >=60 [facility] Comment on above: Result Comment: 2020 CKD EPI Equation using Creatinine without Race Comment: Estimated glomerular filtration rate (eGFR) is calculated without a race coefficient. Values should be interpreted in the context of the patient's full clinical presentation. Reference: 1. Beto C, Yajaira M, Trey EAGLE, et al.. A Unifying Approach for GFR Estimation: Recommendations of the NKF-ASN Task Force on Reassessing the Inclusion of Race in Diagnosing Kidney Disease. [place] Journal of Kidney Diseases 2021;79(2):268-88.e1. 2. N Engl J Med 1 Vol. 385 Issue 19 Pages [id number] Performed By: #### C H8 #### [facility] [address] [place], [address] Glucose [Mass/Vol] 84 mg/dL Normal 74-109 [facility] Comment on above: Performed By: #### C H8 #### [facility] [address] [place], [address] Potassium [Moles/Vol] 4.9 mmol/L Normal 3.5-5.0 [facility] Comment on above: Result Comment: Note updated reference ranges. Note updated reference ranges. Performed By: #### C H8 #### [facility] [address] [place], [address] Sodium [Moles/Vol] 139 mmol/L Normal 136-145 [facility] Comment on above: Result Comment: Note updated reference ranges. Performed By: #### C H8 #### REPLACED BY [facility] [address] [place], [address] Urea nitrogen [Mass/Vol] 21 mg/dL Normal 7-25 [facility] Comment on above: Result Comment: Note updated reference ranges. Performed By: #### C H8 #### REPLACED BY [facility] [address] [place], [address] Basic metabolic 2000 panelOr dered By: Vandana Ace on 07-16-2023 Anion gap [Moles/Vol] 15 mmol/L 10 - 20 Met [facility] Calcium [Mass/Vol] 9.6 mg/dL 8.6 - 10. 3 mg/dL [facility] Comment on above: Note updated referen ce ranges. Chloride [Moles/Vol] 104 mmol/L 98 - 10 7 mmol/L [facility] Comment on above: Note updated referen ce ranges. CO2 [Moles/Vol] 25 mmol/L 21 - 31 mmol/L [facility] Comment on above: Note updated referen ce ranges. Creatinine [Mass/Vol] 0.94 mg/dL 0.70 - 1.30 mg/dL [facility] Comment on above: Note updated referen ce ranges. GFR/1.73 sq M.predicted CKD-EPI (S/P/Bld) [Vol rate/Area] 112 - PINF [facility] Comment on above: 2020 CKD EPI Equatio n using Creatinine without Race Comment: Estimated glomerular filtration rate (eGFR) is calculated without a race coefficient. Values should be interpreted in the context of the patient's full clinical presentation. Reference: 1. Beto Butler, Yajaira M, Trey EAGLE, et al.. A Unifying Approach for GFR Estimation: Recommendations of the NKF-ASN Task Force on Reassessing the Inclusion of Race in Diagnosing Kidney Disease. [place] Journal of Kidney Diseases 202;79(2):268-88.e1. 2. N Engl J Med 2020 Vol. 385 Issue 19 Pages 2973-7387 Glucose [Mass/Vol] 84 mg/dL 74 - 109 mg/dL [facility] Interpretation and review of laboratory results Normal [facility] Potassium [Moles/Vol] 4.9 mmol/L 3.5 - 5.0 mmol/L [facility] Comment on above: Note updated referen ce ranges. Note updated reference ranges. Sodium [Moles/Vol] 139 mmol/L 136 - 145 mmol/L [facility] Comment on above: Note updated referen ce ranges. Urea nitrogen [Mass/Vol] 21 mg/dL 7 - 25 mg/dL [facility] Comment on above: Note updated referen ce ranges. [facility] Brief Operative Noteon 07-16 [employer] Worker Authentication Interface Message Text Cancelled Case was cancelled. Pt has very low heart rate, that compromises GA/ per anesthesia team. Normal [facility] CBC WITH DIFFERENTIALon 06-21 Basophils (Bld) [#/Vol] 0.10 10*3/uL Normal 0.00-0.20 [facility] Comment on above: Performed By: #### C BCDSAT ####REPLACED BY [facility] [id number] [place] [address], [address] Basophils/100 WBC (Bld) 0.6 % Normal <=1.9 [facility] Comment on above: Performed By: #### C BCDSAT ####REPLACED BY [facility] [id number] [place] [address], [address] Eosinophils (Bld) [#/Vol] 0.30 10*3/uL Normal 0.00-0.70 [facility] Comment on above: Performed By: #### C BCDSAT ####REPLACED BY [facility] [address] [place], [address] Eosinophils/100 WBC (Bld) 3.1 % Normal 0.1-4.0 [facility] Comment on above: Performed By: #### C BCDSAT ####REPLACED BY [facility] [address] [place], [address] Erythrocyte distribution width (RBC) [Ratio] 14.2 % Normal 11.5-14.5 [facility] Comment on above: Performed By: #### C BCDSAT ####REPLACED BY [facility] [address] [place] [address], [address] Hematocrit (Bld) [Volume fraction] 38.4 % Low 41.0-53.0 [facility] Comment on above: Performed By: #### C BCDSAT ####REPLACED BY [facility] [address] [place] [address], [address] Hemoglobin (Bld) [Mass/Vol] 12.6 g/dL Low 13.9-16.3 [facility] Comment on above: Performed By: #### C BCDSAT ####REPLACED BY [facility] [address] [place] [address], [address] Lymphocytes (Bld) [#/Vol] 3.20 10*3/uL Normal 1.00-4.80 [facility] Comment on above: Performed By: #### C BCDSAT ####REPLACED BY [facility] [address] [place] [address], [address] Lymphocytes/100 WBC (Bld) 36.8 % Normal 24.0-44.0 [facility] Comment on above: Performed By: #### C BCDSAT ####REPLACED BY [facility] [address] [place] [address], [address] MCH (RBC) [Entitic mass] 27.4 pg Normal 26.0-34.0 [facility] Comment on above: Performed By: #### C BCDSAT ####REPLACED BY [facility] [address] [place] [address], [address] MCHC (RBC) [Mass/Vol] 32.8 g/dL Normal 32.0-35.9 [facility] Comment on above: Performed By: #### C BCDSAT ####REPLACED BY [facility] [address] [place] [address], [address] MCV (RBC) [Entitic vol] 84 fL Normal 80-100 [facility] Comment on above: Performed By: #### C BCDSAT ####REPLACED BY [facility] [address] [place] [address], [address] Monocytes (Bld) [#/Vol] 0.80 10*3/uL Normal 0.20-1.00 [facility] Comment on above: Performed By: #### C BCDSAT ####REPLACED BY [facility] [id number] [place] [address], [address] Monocytes/100 WBC (Bld) 8.9 % Normal 2.0-11.0 [facility] Comment on above: Performed By: #### C BCDSAT ####REPLACED BY [facility] [address] [place] [address], [address] Neutrophils (Bld) [#/Vol] 4.40 10*3/uL Normal 1.50-8.00 [facility] Comment on above: Performed By: #### C BCDSAT ####REPLACED BY [facility] [address] [place] [address], [address] Neutrophils/100 WBC (Bld) 50.6 % Normal 31.0-76.0 [facility] Comment on above: Performed By: #### C BCDSAT ####REPLACED BY [facility] [address] [place] [address], [address] Nucleated RBC (Bld) [#/Vol] 0.1 10*3/uL Normal [facility] Comment on above: Performed By: #### C BCDSAT ####REPLACED BY [facility] [address] [place] [address], [address] Nucleated RBC (Bld) [#/Vol] 0.01 10*3/uL Normal [facility] Comment on above: Performed By: #### C BCDSAT ####REPLACED BY [facility] [address] [place] [address], [address] Platelet mean volume (Bld) [Entitic vol] 9.1 fL Normal 7.5-11.2 [facility] Comment on above: Performed By: #### C BCDSAT ####REPLACED BY [facility] [id number] [place] [address], [address] PLT Normal [facility] Comment on above: Result Comment: Plat elet cannot be quantified due to the presence of platelet clumps. Platelet estimate appears normal. Performed By: #### C BCDSAT ####REPLACED BY [facility] [id number] [place] [address], [address] RBC (Bld) [#/Vol] 4.59 10*6/uL Normal 4.50-5.90 [facility] Comment on above: Performed By: #### C BCDSAT ####REPLACED BY [facility] [address] [place], [address] WBC (Bld) [#/Vol] 8.6 10*3/uL Normal 4.5-11.5 [facility] Comment on above: Performed By: #### C BCDSAT ####REPLACED BY [facility] [address] [place], [address] Basophils (Bld) [#/Vol] 0.10 10*3/uL 0.00 - 0.20 K/uL [facility] Basophils/100 WBC (Bld) 0.6 % NINF - 1.9 % [facility] Eosinophils (Bld) [#/Vol] 0.30 10*3/uL 0.00 - 0.70 K/uL [facility] Eosinophils/100 WBC (Bld) 3.1 % 0.1 - 4.0 % [facility] Erythrocyte distribution width (RBC) [Ratio] 14.2 % 11.5 - 14.5 % [facility] Hematocrit (Bld) [Volume fraction] 38.4 % Low 41.0 - 53.0 % [facility] Hemoglobin (Bld) [Mass/Vol] 12.6 g/dL Low 13.9 - 16.3 g/dL [facility] Interpretation and review of laboratory results Abnormal [facility] Lymphocytes (Bld) [#/Vol] 3.20 10*3/uL 1.00 - 4.80 K/uL [facility] Lymphocytes/100 WBC (Bld) 36.8 % 24.0 - 44.0 % [facility] MCH (RBC) [Entitic mass] 27.4 pg 26.0 - 34.0 pg [facility] MCHC (RBC) [Mass/Vol] 32.8 g/dL 32.0 - 35.9 g/dL [facility] MCV (RBC) [Entitic vol] 84 fL 80 - 100 fL [facility] Monocytes (Bld) [#/Vol] 0.80 10*3/uL 0.20 - 1.00 K/uL [facility] Monocytes/100 WBC (Bld) 8.9 % 2.0 - 11.0 % [facility] Neutrophils (Bld) [#/Vol] 4.40 10*3/uL 1.50 - 8.00 K/uL [facility] Neutrophils/100 WBC (Bld) 50.6 % 31.0 - 76.0 % [facility] Nucleated RBC (Bld) [#/Vol] 0.01 10*3/uL [facility] Nucleated RBC/100 WBC (Bld) [Ratio] 0.1 % [facility] Platelet mean volume (Bld) [Entitic vol] 9.1 fL 7.5 - 11.2 fL [facility] Platelets (Bld) [#/Vol] [facility] Comment on above: Platelet cannot be q uantified due to the presence of platelet clumps. Platelet estimate appears normal. RBC (Bld) [#/Vol] 4.59 10*6/uL [facility] WBC (Bld) [#/Vol] 8.6 10*3/uL 4.5 - 11.5 K/uL [facility] CT HEAD W/O CONTRASTon 07-16 CT HEAD W/O CONTRAST EXAMINATION: CT HEAD W/O CONTRAST 07/16/2023 09:47 AM CLINICAL HISTORY: r/o intracranial abn - bradycardia, nonverbal patient, likes to hit head ASSOCIATED DIAGNOSIS: r/o intracranial abn - bradycardia, nonverbal patient, likes to hit head ORDERING PROVIDER: [employer] NOTE: COMPARISON: None TECHNIQUE: Thin axial imaging of the head was performed without intravenous contrast. FINDINGS: No mass or acute hemorrhage. No CT evidence of acute infarct. There is moderate ventriculomegaly, more pronounced in the left trigone. Cavum septum pellucidum. There is mild nonspecific periventricular hypoattenuation surrounding the left trigone. 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 The skull is intact. Mild mucosal thickening in the paranasal sinuses.. Mild soft tissue swelling in the frontal scalp. IMPRESSION: 1. Mild nonspecific hypoattenuation in the left peritrigonal region. Correlate with prior imaging to assess stability or follow-up MRI. 2. Mild to moderate ventricular prominence. 3. 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 MACRO: None Normal The [facility] CT Head WO contrastOrdered B y: David Kay on 07-16-2023 CT DLP 1126.71 (mGy.cm) [facility] Work Phone: CT Series HEAD W/O,HEAD W/O [facility] Work Phone: CTDI VOL 0.34 (mGy),47.31 (mGy) [facility] Work Phone: PHANTOM TYPE IEC Head Dosimetry Phantom,IEC Head Dosimetry Phantom [facility]: [facility] CT Head WO contraston 2022 EXAMINATION: CT HEAD W/O CONTRAST 07/16/2023 09:47 AM CLINICAL HISTORY: r/o intracranial abn - bradycardia, nonverbal patient, likes to hit head ASSOCIATED DIAGNOSIS: r/o intracranial abn - bradycardia, nonverbal patient, likes to hit head ORDERING PROVIDER: [employer] NOTE: COMPARISON: None TECHNIQUE: Thin axial imaging of the head was performed without intravenous contrast. FINDINGS: No mass or acute hemorrhage. No CT evidence of acute infarct. There is moderate ventriculomegaly, more pronounced in the left trigone. Cavum septum pellucidum. There is mild nonspecific periventricular hypoattenuation surrounding the left trigone. 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 The skull is intact. Mild mucosal thickening in the paranasal sinuses.. Mild soft tissue swelling in the frontal scalp. IMPRESSION: 1. Mild nonspecific hypoattenuation in the left peritrigonal region. Correlate with prior imaging to assess stability or follow-up MRI. 2. Mild to moderate ventricular prominence. 3. 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 MACRO: None RADIOLOGY David Kay DO - 07/16/2023 EXAMINATION: CT HEAD W/O CONTRAST 07/16/2023 09:47 AM CLINICAL HISTORY: r/o intracranial abn - bradycardia, nonverbal patient, likes to hit head ASSOCIATED DIAGNOSIS: r/o intracranial abn - bradycardia, nonverbal patient, likes to hit head ORDERING PROVIDER: [employer] NOTE: COMPARISON: None TECHNIQUE: Thin axial imaging of the head was performed without intravenous contrast. FINDINGS: No mass or acute hemorrhage. No CT evidence of acute infarct. There is moderate ventriculomegaly, more pronounced in the left trigone. Cavum septum pellucidum. There is mild nonspecific periventricular hypoattenuation surrounding the left trigone. 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 The skull is intact. Mild mucosal thickening in the paranasal sinuses.. Mild soft tissue swelling in the frontal scalp. IMPRESSION: 1. Mild nonspecific hypoattenuation in the left peritrigonal region. Correlate with prior imaging to assess stability or follow-up MRI. 2. Mild to moderate ventricular prominence. 3. 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 MACRO: None [facility] Radiology Study observation (narrative) [facility] ED Noteson 07-16-2023 Upkeep Worker Authentication Interface Message Text Permission treat given from Cate legal guardian Normal The [facility] ED Provider Noteson 07-16-20 Upkeep Worker Authentication Interface Message Text EMERGENCY DEPARTMENT - VISIT NOTE HISTORY OF PRESENT ILLNESS ------- Chief Complaint Patient presents with bradycardia Low HR (33) HIPAA: Verbal permission granted from patient to discuss case, including protected health information, in front of family / friends in room at the time of the evaluation. Nail Technician: not needed - patient preferred language is Icelandic. History from Independent Historian: Caregiver reports Pleasant 32-year-old male, nonverbal at baseline, bipolar disorder, intellectual disability, autistic disorder is presenting to the ER for bradycardia. Patient was at dental office for a scheduled dental procedure however upon receiving vital signs, patient was bradycardic in prompted to the ED. patient presents with caregiver who reports patient was currently appearing to be asymptomatic and currently at his baseline mentation status without acute changes. Reports patient takes metoprolol twice daily 50 mg 8:00 p.m. and 8:00 a.m., received his dose last night but did not receive any medication this morning. Caregiver reports patient has been acting towards his baseline and has not been reporting or grimacing or acting acutely different. Reports patient does ambulate and denies change in gait or appearing dizzy. Denies fever, chills, chest pain, shortness of breath, nausea, vomiting, diarrhea or abdominal pain REVIEW OF SYSTEMS Review of Systems Constitutional: Negative for chills, fatigue and fever. Eyes: Negative for visual disturbance. Respiratory: Negative for cough, chest tightness, shortness of breath and wheezing. Cardiovascular: Negative for chest pain and palpitations. Positive bradycardia Gastrointestinal: Negative for abdominal pain, diarrhea, nausea and vomiting. Genitourinary: Negative for dysuria. Musculoskeletal: Negative for back pain and neck pain. Neurological: Negative for dizziness, weakness, light-headedness, numbness and headaches. - PAST HISTORY ---- Pertinent Past History: No past medical history on file. Pertinent Family History: No family history on file. Pertinent Social History: Denies the use of tobacco products, heavy alcohol use or illicit drug use Social History Tobacco Use Smoking status: Never Smokeless tobacco: Never Substance Use Topics Alcohol use: Never Drug use: Never PHYSICAL EXAM ----- BP 110/80 Pulse (!) 37 Temp 97.5 ???F (36.4 ???C) (Oral) Resp 15 Wt 199 lb (90.3 kg) SpO2 100% BMI 33.97 kg/m??? Physical Exam Vitals and nursing note reviewed. Constitutional: General: He is not in acute distress. Appearance: Normal appearance. He is not ill-appearing, toxic-appearing or diaphoretic. HENT: Head: Normocephalic. Comments: At the central frontal region of the forehead there is a deep abrasion not acute appearing without active bleeding. Mouth/Throat: Mouth: Mucous membranes are dry. Eyes: General: No scleral icterus. Extraocular Movements: Extraocular movements intact. Pupils: Pupils are equal, round, and reactive to light. Cardiovascular: Rate and Rhythm: Regular rhythm. Bradycardia present. Pulses: Normal pulses. Heart sounds: Normal heart sounds. Pulmonary: Effort: Pulmonary effort is normal. No respiratory distress. Breath sounds: Normal breath sounds. No stridor. No wheezing, rhonchi or rales. Abdominal: Palpations: Abdomen is soft. Neurological: Mental Status: He is alert. Mental status is at baseline. MEDICAL DECISION MAKING and ED COURSE -- Independent Test Interpretation: EKG personally reviewed and interpreted: EMERGENCY DEPARTMENT EKG INTERPRETATION Rhythm: Sinus bradycardia Rate: 36 NORMAL Normal conduction / intervals No atrial or ventricular hypertrophy No acute ischemic changes Comparison to prior: bradycardic now and changed from 06/22/23. Sinus bradycardia replaces NSR. -KD Impression: no acute infarction Personally reviewed and interpretated by Bebo Groves PA-C Independent Test Interpretation: Rhythm strip personally reviewed and interpreted, + sinus bradycardia with no ectopy. -KD Lab studies personally interpreted: CBC without evidence of leukocytosis, thrombocytopenia or anemia. Metabolic panel without signs of SAIMA or electrolyte abnormality. Mag normal CT scans personally reviewed and interpreted by myself: 1. Mild nonspecific hypoattenuation in the left peritrigonal region. Correlate with prior imaging to assess stability or follow-up MRI. 2. Mild to moderate ventricular prominence. 3. 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 . All incidental findings, if present, were relayed to the patient. Final decision-mariusz (more content not included)... Normal [facility] MAGNESIUMon 07-16-2023 Magnesium [Mass/Vol] 2.1 mg/dL Normal 1.6-2.8 [facility] Comment on above: Performed By: #### M G ####[facility] [id number] [place] [address], [address] Interpretation and review of laboratory results Normal [facility] Magnesium [Mass/Vol] 2.1 mg/dL 1.6 - 2 .8 mg/dL [facility] OP Noteon 07-16-2023 Upkeep Worker Authentication Interface Message Text Cancelled Case was cancelled. Pt has very low heart rate, that compromises GA/ per anesthesia team. Normal [facility] Progress Noteson 07-16-2023 Upkeep Worker Authentication Interface Message Text ----- Sunday, July 16, 2023 at 1:56:53 PM ----- ----- Provider: [id number] - Bobbi Oswald, -- Clinic: [place] ----- Patient was scheduled for OR today Patient had Bradycardia and hypotension for unknown reasons. Anaesthesia asked to cancel the OR for this patient today. NV. OR ----- Signed on Monday, July 17, 2023 at 8:18:55 AM ----- ----- Provider: [id number] Jed Alicea DDS -- Clinic: [place] ----- Normal [facility] Upkeep Worker Authentication Interface Message Text 0800: pt's HR in the 30s. Per caregiver his behavior is baseline. Spoke with nurse at pt's residence and she stated baseline HR is in the 70s. Dr Olmstead aware and at bedside. EKG performed. Pt transferred to ED for further evaluation. Normal [facility] Lithiumon 07-06-2023 [place] [Moles/Vol] 0.9 mmol/L Invalid Interpretation Code 0.5-1.2 [facility] Comment on above: Result Comment: A co ncentration of 0.5-0.8 mmol/L is advised for long-term use; concentrations of up to 1.2 mmol/L may be necessary during acute treatment. Detection Limit = 0.1 <0.1 indicates None Detected Performed at: [facility] [address] [place], [place] [id number] PhD Agata Narayan Performed By: #### 2 820586, 9190445, 4148894, 5357489, [id number], 9821971, 9086250, 05758574, 9552052 #### [facility] [address] [place] [address] CBC w/Indiceson 07-04-2023 Erythrocyte distribution width (RBC) [Ratio] 13.8 % Normal 10.9-14.2 [facility] Comment on above: Performed By: #### 2 017331, 2793739, 7709402, 2378210, 577299112, 6846579, 7959472, 33582758, 2225301 #### [facility] [address] [place] [address] Hematocrit (Bld) [Volume fraction] 38.1 % Normal 37.7-49.0 [facility] Comment on above: Performed By: #### 2 733181, 2565324, 9555619, 8785385, 230409334, 8041065, 5311740, 48345989, 5695572 #### [facility] [address] [address] Hemoglobin (Bld) [Mass/Vol] 12.7 g/dL Low 13.5-17.5 [facility] Comment on above: Performed By: #### 2 868991, 9574820, 7415959, 6865284, 227979813, 2892364, 0415462, 58018014, 0573230 #### [facility] [address] [place] [address] MCH (RBC) [Entitic mass] 27.6 pg Normal 27.0-34.0 [facility] Comment on above: Performed By: #### 2 325686, 6107725, 6532491, 6679459, 571092814, 1786496, 3262505, 71564552, 9507089 #### [facility] [address] [place] [address] MCHC (RBC) [Mass/Vol] 33.3 g/dL Normal 31.4-36.0 [facility] Comment on above: Performed By: #### 2 686414, 9968884, 9060513, 2592180, 819284057, 1321105, 2207713, 27328694, 5924962 #### [facility] [address] [place] [address] MCV (RBC) [Entitic vol] 83.0 fL Normal 80.0-100.0 [facility] Comment on above: Performed By: #### 2 098839, 7438085, 3162725, 4881805, 751860418, 0916688, 3824641, 70315441, 4837146 #### [facility] [address] [place] [address] Platelet mean volume (Bld) [Entitic vol] 8.5 fL Normal 6.4-10.8 [facility] Comment on above: Performed By: #### 2 756396, 8955471, 4822322, 4416707, 604026117, 3368485, 0308694, 74155903, 5282670 #### [facility] [address] [place] [address] Platelets (Bld) [#/Vol] 175.0 E9/L Normal 150.0-500.0 [facility] Comment on above: Performed By: #### 2 366907, 8232339, 8615278, 7295684, 515317527, 5800055, 6290934, 30139695, 0519342 #### [facility] [address] [place] [address] RBC (Bld) [#/Vol] 4.6 E12/L Normal 4.3-5.9 [facility] Comment on above: Performed By: #### 2 373901, 2907443, 0747770, 0057346, 079579109, 8755162, 5075429, 25934458, 2901340 #### [facility] [address] [place] [address] WBC corrected for nucl RBC Auto (Bld) [#/Vol] 5.9 E9/L Normal 4.0-11.0 [facility] Comment on above: Performed By: #### 2 083442, 7505048, 6228709, 5691672, 432215042, 1952706, 2060828, 52293739, 7650191 #### [facility] [address] [place] [address] CHEMISTRYOrdered By: SYSTEM SYSTEM on 07-04-2023 25-hydroxyvitamin D3 [Mass/Vol] 33.7 ng/mL Normal 30.0 - 100.0 ng/mL [facility] Comment on above: Interpretive Data: Vitamin D deficiency has been defined as a level of serum 25-OH vitamin D less than 20 ng/mL (1,2) by the [place] of Medicine and an Endocrine Society practice guideline. The Endocrine Society further defined vitamin D insufficiency as a level between 21 and 29 ng/mL (2). 1. IOM ([place] of Medicine). 2010. Dietary reference intakes for calcium and D. [place]: The National Academies Press. 2. Denia MF, Marcelino CHAIDEZ, Ann GARVEY, et al. Evaluation, treatment, and prevention of vitamin D deficiency: an Endocrine Society clinical practice guideline. JCEM. 2010; 96 (7):1911-30. Albumin [Mass/Vol] 3.7 g/dL Normal 3.3 - 5.0 gm/dL [facility] Albumin/Globulin [Mass ratio] 1.0 {ratio} Low 1.1 - 2.2 [facility] ALP [Catalytic activity/Vol] 37 [iU]/d Normal 21 - 98 Int._Unit/L [facility] ALT No additional P-5'-P [Catalytic activity/Vol] 15 [iU]/d Normal 6 - 46 Int._Unit/L [facility] Anion gap [Moles/Vol] 12 mmol/L Normal 6 - 16 mEq/L [facility] AST [Catalytic activity/Vol] 22 [iU]/d Normal 5 - 43 Int._Unit/L [facility] Bilirubin [Mass/Vol] 0.1 mg/dL Normal 0.0 - 1 .1 mg/dL [facility] Calcium [Mass/Vol] 9.7 mg/dL Normal 8.9 - 11. 1 mg/dL [facility] Chloride [Moles/Vol] 108 mmol/L Normal 101 - 1 11 mmol/L [facility] Cholesterol [Mass/Vol] 145 mg/dL Normal 120 - 200 mg/dL [facility] Cholesterol in HDL [Mass/Vol] 40 mg/dL Invalid Interpretation Code [facility] Comment on above: Interpretive Data: H DL > or equal to 60 mg/dL: Low cardiovascular risk HDL < 40 mg/dL : High cardiovascular risk Cholesterol in LDL [Mass/Vol] 86 mg/dL Normal <=129mg/dL [facility] Cholesterol in VLDL [Mass/Vol] 27 mg/dL Normal 7 - 40 mg/dL [facility] CO2 [Moles/Vol] 23 mmol/L Normal 21 - 31 mmol/L [facility] Creatinine [Mass/Vol] 0.9 mg/dL Normal 0.5 - 1.3 mg/dL [facility] Free T4 [Mass/Vol] 0.70 ng/dL Normal 0.58 - 1. 64 ng/dL [facility] GFR/1.73 sq M.predicted among non-blacks MDRD (S/P/Bld) [Vol rate/Area] 118 mL/min/1.73 m2 Normal >=59mL/min/1. 73 m2 [facility] Comment on above: Interpretive Data: C hronic kidney disease could be indicated at eGFR's of less than 60 mL/min/1.73m2. Kidney failure is indicated at less than 15 mL/min/1.73m2. Globulin (S) [Mass/Vol] 3.8 g/dL Normal 1.4 - 4.0 gm/dL [facility] Glucose [Mass/Vol] 86 mg/dL Normal 55 - 199 mg/dL [facility] Comment on above: Interpretive Data: I f this glucose result represents a fasting glucose, interpretation should refer to the following reference range: 55-99 mg/dL Potassium [Moles/Vol] 4.3 mmol/L Normal 3.5 - 5.3 mmol/L [facility] Protein [Mass/Vol] 7.5 g/dL Normal 6.0 - 7.8 gm/dL [facility] Sodium [Moles/Vol] 139 mmol/L Normal 135 - 145 mmol/L [facility] Triglyceride [Mass/Vol] 133 mg/dL Normal <=149mg/dL [facility] TSH Qn 2.75 m[IU]/L Normal 0.34 - 5.60 mcIU/mL [facility] Urea nitrogen [Mass/Vol] 20 mg/dL Normal 5 - 21 mg/dL [facility] Urea nitrogen/Creatinine [Mass ratio] 22 mg/mg High 10 - 20 [facility] [place] [facility] Valproate [Moles/Vol] 79 microgram/mL Normal 50 - 99 mcg/mL [facility] [place] [facility] CMPon 07-04-2023 Albumin [Mass/Vol] 3.7 g/dL Normal 3.3-5.0 [facility] Comment on above: Performed By: #### 2 594359, 0269701, 8172815, 1544731, 786383106, 3298755, 4016001, 81060587, 7283938 #### [facility] [address] [place] [address] Albumin/Globulin (S) [Mass conc ratio] 1.0 Low 1.1-2.2 [facility] Comment on above: Performed By: #### 2 028548, 4777088, 1669009, 9702340, 758920539, 7345041, 4451047, 00086107, 1417794 #### [facility] [address] [place] [address] ALP [Catalytic activity/Vol] 37 Int._Unit/L Normal 21-98 [facility] Comment on above: Performed By: #### 2 987457, 8636811, 7724047, 8066444, 043225427, 9632891, 6962054, 21968846, 5189532 #### [facility] [address] [place] [address] ALT No additional P-5'-P [Catalytic activity/Vol] 15 Int._Unit/L Normal 6-46 [facility] Comment on above: Performed By: #### 2 717271, 7444660, 2631449, 9510263, 273333522, 1660264, 1692046, 18163773, 9904216 #### [facility] [address] [place] [address] Anion gap [Moles/Vol] 12 mmol/L Normal 6-16 [facility] Comment on above: Performed By: #### 2 654916, 6116223, 4410755, 2842084, 496416337, 2106073, 8718532, 63041849, 2039440 #### [facility] [address] [place] [address] AST [Catalytic activity/Vol] 22 Int._Unit/L Normal 5-43 [facility] Comment on above: Performed By: #### 2 532402, 9325723, 9831721, 9234911, 481278421, 7246579, 2251294, 06348483, 9389654 #### [facility] [address] [place] [address] Bilirubin [Mass/Vol] 0.1 mg/dL Normal 0.0-1.1 [facility] Comment on above: Performed By: #### 2 589006, 2079190, 8125056, 5632650, 796956773, 5557167, 5079895, 44193566, 0179528 #### [facility] [address] [place] [address] Calcium [Mass/Vol] 9.7 mg/dL Normal 8.9-11.1 [facility] Comment on above: Performed By: #### 2 186091, 4151162, 4530099, 7095411, 583146713, 2229777, 3459982, 18803234, 9147573 #### [facility] [address] [place] [address] Chloride [Moles/Vol] 108 mmol/L Normal 101-111 [facility] Comment on above: Performed By: #### 2 285072, 4088007, 6479664, 5272365, 972258131, 9935510, 6254762, 27410918, 8042783 #### [facility] [address] [place] [address] CO2 [Moles/Vol] 23 mmol/L Normal 21-31 [facility] Comment on above: Performed By: #### 2 149930, 0211850, 0537173, 0960545, 045015564, 4916434, 5550425, 37124062, 1374741 #### [facility] [address] [place] [address] Creatinine [Mass/Vol] 0.9 mg/dL Normal 0.5-1.3 [facility] Comment on above: Performed By: #### 2 194558, 8048588, 9089671, 2324252, 151597905, 4504608, 1234699, 09441843, 7586944 #### [facility] [address] [place] [address] Globulin (S) [Mass/Vol] 3.8 g/dL Normal 1.4-4.0 [facility] Comment on above: Performed By: #### 2 580740, 0829812, 7606143, 3349866, 726151781, 0884971, 2616277, 33824375, 2106548 #### [facility] [address] [place] [address] Glucose [Mass/Vol] 86 mg/dL Normal 55-199 [facility] Comment on above: Result Comment: If t his glucose result represents a fasting glucose, interpretation should refer to the following reference range: 55-99 mg/dL Performed By: #### 2 175009, 9162146, 4126068, 6879065, 018555025, 0112946, 8804736, 08185518, 1194688 #### [facility] [address] [place] [address] Potassium [Moles/Vol] 4.3 mmol/L Normal 3.5-5.3 [facility] Comment on above: Performed By: #### 2 206975, 4989649, 1846577, 1314046, 202420715, 4458964, 1288049, 48747548, 6532920 #### [facility] [address] [place] [address] Protein [Mass/Vol] 7.5 g/dL Normal 6.0-7.8 [facility] Comment on above: Performed By: #### 2 631608, 6982681, 6217186, 6105971, 667928858, 6967844, 2661343, 41091808, 4008899 #### [facility] [address], [place] [address] Sodium [Moles/Vol] 139 mmol/L Normal 135-145 [facility] Comment on above: Performed By: #### 2 979311, 8169721, 1861873, 6427819, [id number], 0297987, 1846458, 14635811, 8191745 #### [facility] [address] [place] [address] Urea nitrogen [Mass/Vol] 20 mg/dL Normal 5-21 [facility] Comment on above: Performed By: #### 2 939443, 1324118, 0959361, 4163122, [id number], 0376314, 1089635, 23742551, 2987923 #### [facility] [address] [place] [address] Urea nitrogen/Creatinine [Mass ratio] 22 No Units High 10-20 [facility] Comment on above: Performed By: #### 2 911048, 2647854, 3162180, 7879034, [id number], 4284069, 1486942, 03490953, 7603834 #### [facility] [address] [place] [address] Free T4on 07-04-2023 Free T4 [Mass/Vol] 0.70 ng/dL Normal 0.58-1.64 [facility] Comment on above: Performed By: #### 2 907866, 2068190, 5946712, 4639816, 563997177, 7302381, 8730260, 21157754, 9641467 #### [facility] [address] [place] [address] HEMATOLOGYOrdered By: Jersey Arnett on 07-04-2023 Erythrocyte distribution width (RBC) [Ratio] 13.8 % Normal 10.9 - 14.2 % FT [facility] Hematocrit (Bld) [Volume fraction] 38.1 % Normal 37.7 - 49.0 % FT [facility]eAutoSS Hemoglobin (Bld) [Mass/Vol] 12.7 g/dL Low 13.5 - 17.5 gm/dL FT [facility]eAutoSS MCH (RBC) [Entitic mass] 27.6 pg Normal 27.0 - 34.0 pg FT HemeAutoSS MCHC (RBC) [Mass/Vol] 33.3 g/dL Normal 31.4 - 36.0 gm/dL FT HemeAutoSS MCV (RBC) [Entitic vol] 83.0 fL Normal 80.0 - 100.0 fL FT [facility]eAutoSS Platelet mean volume (Bld) [Entitic vol] 8.5 fL Normal 6.4 - 10.8 fL FT [facility]eAutoSS Platelets (Bld) [#/Vol] 175.0 E9/L Normal 150.0 - 500.0 E9/L FT HemeAutoSS RBC (Bld) [#/Vol] 4.6 E12/L Normal 4.3 - 5.9 E12/L FT [facility]eAutoSS WBC corrected for nucl RBC Auto (Bld) [#/Vol] 5.9 E9/L Normal 4.0 - 11.0 E9/L [facility] [place] Lipid Panelon 07-04-2023 Cholesterol [Mass/Vol] 145 mg/dL Normal 120-200 [facility] Comment on above: Performed By: #### 2 610806, 0813217, 6488704, 8878694, 924012802, 4228971, 9566023, 86006440, 8292127 #### [facility] [address] [place] [address] Cholesterol in HDL [Mass/Vol] 40 mg/dL Invalid Interpretation Code [facility] Comment on above: Result Comment: HDL > or equal to 60 mg/dL: Low cardiovascular risk HDL < 40 mg/dL : High cardiovascular risk Performed By: #### 2 253184, 5264928, 9008396, 3311147, 855322592, 3176510, 8027235, 42221956, 5017304 #### [facility] [address] [place] [address] Cholesterol in LDL [Mass/Vol] 86 mg/dL Normal <=129 [facility] Comment on above: Performed By: #### 2 551670, 3938750, 3126055, 1697498, 829930289, 6559069, 9489483, 17928235, 9813140 #### [facility] [address] [place] [address] Cholesterol in VLDL [Mass/Vol] 27 mg/dL Normal 7-40 [facility] Comment on above: Performed By: #### 2 131014, 7134395, 2219985, 6415245, 012811005, 6818847, 1882119, 17140019, 0278000 #### [facility] [address] [place] [address] Triglyceride [Mass/Vol] 133 mg/dL Normal <=149 [facility] Comment on above: Performed By: #### 2 163509, 0759138, 9142625, 1275267, 391152992, 6762870, 0661407, 86784253, 5909372 #### [facility] [address] [place] [address] Physician Orderon 07-04-2023 Physician Order [id number] Normal [facility] TSHon 07-04-2023 TSH Qn 2.75 m[IU]/L Normal 0.34-5.60 [facility] Comment on above: Performed By: #### 2 669803, 9290246, 1987398, 0729149, 685264479, 9169245, 8927168, 27760649, 6414830 #### [facility] [address] [place] [address] Valproic Acidon 07-04-2023 Valproate [Moles/Vol] 79 microgram/mL Normal 50-99 [facility] Comment on above: Performed By: #### 2 043453, 6373896, 4393849, 2992613, 922835459, 6693435, 3909910, 78315215, 3711570 #### [facility] [address] [place] [address] Vitamin D 25 Hydroxyon 07-04 25-hydroxyvitamin D3 [Mass/Vol] 33.7 ng/mL Normal 30.0-100.0 [facility] Comment on above: Result Comment: Vit alfredo D deficiency has been defined as a level of serum 25-OH vitamin D less than 20 ng/mL (1,2) by the [place] of Medicine and an Endocrine Society practice guideline. The Endocrine Society further defined vitamin D insufficiency as a level between 21 and 29 ng/mL (2). 1. IOM ([place] of Medicine). 2010. Dietary reference intakes for calcium and D. [place]: The National Academies Press. 2. Denia MF, Marcelino NC, Ann GARVEY, et al. Evaluation, treatment, and prevention of vitamin D deficiency: an Endocrine Society clinical practice guideline. JCEM. 2010; 96 (7):1911-30. Performed By: #### 2 761315, 1438419, 1499616, 2893763, [id number], 3109493, 6508703, 16248914, 9629163 #### [facility] [address] [place] [address] eGFRon 07-04-2023 GFR/1.73 sq M.predicted among non-blacks MDRD (S/P/Bld) [Vol rate/Area] 118 mL/min/1.73 m2 Normal >=59 [facility] Comment on above: Order Comment: Order added by Discern Expert. 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 Kidney failure is indicated at less than 15 mL/min/1.73m2. Performed By: #### 2 501948, 5017757, 2357678, 3193214, 581582902, 5828218, 6599733, 64846576, 6596847 #### [facility] [address] [place] [address] Telephone Encounteron 2022 Upkeep Worker Authentication Interface Message Text Informed Consent for dental surgery AND Anesthesia consent obtained and scanned into [employer]. Scheduled for surgery 07/16/2023. Normal [facility] BASIC METABOLIC PANELon 11-0 Anion gap [Moles/Vol] 16 mmol/L Normal 10-20 [facility] Comment on above: Performed By: #### C H8 #### [facility] [address] [place] [address], Calcium [Mass/Vol] 9.8 mg/dL Normal 8.4-10.4 [facility] Comment on above: Performed By: #### C H8 #### [facility] [address] [place] [address], Chloride [Moles/Vol] 106 mmol/L Normal 97-111 [facility] Comment on above: Performed By: #### C H8 #### [facility] [address] [place] [address], CO2 [Moles/Vol] 23 mmol/L Normal 21-30 [facility] Comment on above: Performed By: #### C H8 #### [facility] [address] [place] [address], Creatinine [Mass/Vol] 1.01 mg/dL Normal 0.80-1.30 [facility] Comment on above: Performed By: #### C H8 #### [facility] [address] [place] [address], ESTIMATED GFR (CKD-EPI) 103 mL/min/1.73sqm Normal >=60 [facility] Comment on above: Result Comment: 2020 CKD EPI Equation using Creatinine without Race Comment: Estimated glomerular filtration rate (eGFR) is calculated without a race coefficient. Values should be interpreted in the context of the patient's full clinical presentation. Reference: 1. Beto C, Yjaaira M, Trey EAGLE, et al.. A Unifying Approach for GFR Estimation: Recommendations of the NKF-ASN Task Force on Reassessing the Inclusion of Race in Diagnosing Kidney Disease. [place] Journal of Kidney Diseases 2021;79(2):268-88.e1. 2. N Engl J Med 1 Vol. 385 Issue 19 Pages 4059-7871 Performed By: #### C H8 #### [facility] [address] [place] [address], Glucose [Mass/Vol] 104 mg/dL Normal 68-110 [facility] Comment on above: Performed By: #### C H8 #### [facility] [address], [place], Potassium [Moles/Vol] 4.7 mmol/L Normal 3.3-5.3 [facility] Comment on above: Performed By: #### C H8 #### [facility] [address], [place], Sodium [Moles/Vol] 140 mmol/L Normal 135-148 [facility] Comment on above: Performed By: #### C H8 #### [facility] [address], [place], Urea nitrogen [Mass/Vol] 22 mg/dL Normal 8-22 [facility] Comment on above: Performed By: #### C H8 #### [facility] [address], [place], PSE Chartingon 06-22-2023 Upkeep Worker Authentication Interface Message Text Dental Consult The Dental Department was asked to consult on this patient by PSE Service. No chief complaint on file. 32 year old was admited for PSE reports the following symptoms: History of present illness: No past medical history on file. Current Outpatient Medications: GuanFACINE HCl (TENEX) 4 MG er tablet, , Disp: , Rfl: atorvastatin (LIPITOR) 10 MG tablet, , Disp: , Rfl: ClearLax 17 GM/SCOOP powder, TAKE 17G WITH LIQUID BY MOUTH DAILY IN THE MORNING, Disp: , Rfl: metoprolol (LOPRESSOR) 50 MG tablet, , Disp: , Rfl: Mucus Relief 600 MG SR tablet, Take 600 mg by mouth 2 times daily., Disp: , Rfl: Calcium Carbonate-Vitamin D (Oyster Shell Calcium/D) 500-200 MG-UNIT TABS, Take 1 Tablet by mouth 2 times daily., Disp: , Rfl: guanfacine (TENEX) 1 MG tablet, guanfacine 1 mg tablet, Disp: , Rfl: Linzess 290 MCG CAPS capsule, , Disp: , Rfl: FLUTICASONE PROPIONATE HFA INHALATION, Inhale by mouth., Disp: , Rfl: cloNIDine (CATAPRES) 0.2 MG tablet, Take 0.2 mg by mouth 2 times daily., Disp: , Rfl: docusate sodium (COLACE) 100 MG capsule, Take 100 mg by mouth 2 times daily., Disp: , Rfl: famotidine (PEPCID) 20 MG tablet, Take 20 mg by mouth 2 times daily., Disp: , Rfl: QUEtiapine (SEROQUEL) 200 MG tablet, Take 200 mg by mouth 2 times daily., Disp: , Rfl: risperiDONE (RISPERDAL) 3 MG tablet, Take 3 mg by mouth 2 times daily., Disp: , Rfl: Sennosides (SENNA) 8.6 MG CAPS, Take by mouth., Disp: , Rfl: sertraline (ZOLOFT) 100 MG tablet, Take 100 mg by mouth daily., Disp: , Rfl: levothyroxine (SYNTHROID, LEVOTHROID) 112 MCG tablet, Take 112 mcg by mouth daily., Disp: , Rfl: lithium 300 MG capsule, Take 300 mg by mouth 3 times daily (with meals)., Disp: , Rfl: lorazepam (ATIVAN) 2 MG tablet, Take 2 mg by mouth every 6 hours as needed for Anxiety., Disp: , Rfl: naltrexone (DEPADE) 50 MG tablet, Take 50 mg by mouth daily., Disp: , Rfl: benztropine (COGENTIN) 0.5 MG tablet, Take 0.5 mg by mouth 2 times daily., Disp: , Rfl: clomiPRAMINE (ANAFRANIL) 75 MG capsule, Take 75 mg by mouth at bedtime., Disp: , Rfl: Allergies Allergen Reactions Biaxin [Clarithromycin] Other Severe abdominal cramps Clinical Exam Gingivitis. No clinical signs of infection. No gross cavities. Radiographic Examination No x-ray taken Differential Diagnosis n/a Treatment Dental treatment in the OR Follow-up [facility] if needed NOTE: Legal Guardian: Delbert Cohen (BROTHER) [phone]. Consent taken by phone. Hiram Rodriguez DDS Normal [facility] Patient Instructionson 06-22 Upkeep Worker Authentication Interface Message Text RECOMMENDATIONS: Patient was instructed on the following: Nothing by mouth after midnight before surgery except following meds with sip of water on AM of surgery: as per anesthesia Stop aspirin 7 days before surgery Stop NSAID 5 days before surgery Stop Vitamin E 10 days prior to surgery Stop alternative/herbal medication 10 days before surgery Chano Beyer MD [phone] Normal [facility] Progress Noteson 06-22-2023 Upkeep Worker Authentication Interface Message Text Identification was verified by patient verbalizing his name and date of . 23 gauge used for venipuncture to the R hand. Tolerated with assistance x2. Sent blood to lab. Normal [facility] Upkeep Worker Authentication Interface Message Text Blood pressure 108/68, pulse 69, temperature 97 ???F (36.1 ???C), temperature source Temporal, resp. rate 40, height 5' 4.17 (1.63 m), weight 199 lb 3.2 oz (90.4 kg). Medications/Allergi es Reviewed CURRENT MEDICATIONS Current Outpatient Medications Medication Sig Dispense Refill GuanFACINE HCl (TENEX) 4 MG er tablet atorvastatin (LIPITOR) 10 MG tablet ClearLax 17 GM/SCOOP powder TAKE 17G WITH LIQUID BY MOUTH DAILY IN THE MORNING metoprolol (LOPRESSOR) 50 MG tablet Mucus Relief 600 MG SR tablet Take 600 mg by mouth 2 times daily. Calcium Carbonate-Vitamin D (Oyster Shell Calcium/D) 500-200 MG-UNIT TABS Take 1 Tablet by mouth 2 times daily. guanfacine (TENEX) 1 MG tablet guanfacine 1 mg tablet Linzess 290 MCG CAPS capsule FLUTICASONE PROPIONATE HFA INHALATION Inhale by mouth. cloNIDine (CATAPRES) 0.2 MG tablet Take 0.2 mg by mouth 2 times daily. docusate sodium (COLACE) 100 MG capsule Take 100 mg by mouth 2 times daily. famotidine (PEPCID) 20 MG tablet Take 20 mg by mouth 2 times daily. QUEtiapine (SEROQUEL) 200 MG tablet Take 200 mg by mouth 2 times daily. risperiDONE (RISPERDAL) 3 MG tablet Take 3 mg by mouth 2 times daily. Sennosides (SENNA) 8.6 MG CAPS Take by mouth. sertraline (ZOLOFT) 100 MG tablet Take 100 mg by mouth daily. levothyroxine (SYNTHROID, LEVOTHROID) 112 MCG tablet Take 112 mcg by mouth daily. lithium 300 MG capsule Take 300 mg by mouth 3 times daily (with meals). lorazepam (ATIVAN) 2 MG tablet Take 2 mg by mouth every 6 hours as needed for Anxiety. naltrexone (DEPADE) 50 MG tablet Take 50 mg by mouth daily. benztropine (COGENTIN) 0.5 MG tablet Take 0.5 mg by mouth 2 times daily. clomiPRAMINE (ANAFRANIL) 75 MG capsule Take 75 mg by mouth at bedtime. No current facility-administer ed medications for this visit. ALLERGIES Allergies Allergen Reactions Biaxin [Clarithromycin] Other Severe abdominal cramps Latex Allergy: No Surgical Procedure: dental restorations Surgeon: unknown Date of Surgery: 07/09/23 HISTORY: 32 year old with history of Autism, Bipolar, Disorder, OCD, Obesity, HLD, Osteoporosis, Hypothyroidism, Chronic Constipation, Dyspepsia and Floppy Eyelid Syndrome scheduled for above procedure My opinion was requested regarding this patient's complex presurgical evaluation. Pertinent Past Medical History and Surgical History Reviewed. No past medical history on file. Past Surgical History: Procedure Laterality Date DENTAL RESTORATIONS N/A 06/13/2018 Procedure: DENTAL RESTORATIONS, extraction; Surgeon: Lyndsay Zuluaga DDS; Location: [facility]OPERATIVE SERVICES; Service: Dental DENTAL RESTORATIONS Bilateral 02/03/2021 Procedure: DENTAL RESTORATIONS; Surgeon: Alexx Mccurdy DDS; Location: [facility]; Service: Dental Pertinent Social History Reviewed Social History Tobacco Use Smoking Status Never Smokeless Tobacco Never Social History Substance and Sexual Activity Alcohol Use Never Social History Substance and Sexual Activity Drug Use Never Family History Reviewed. family history is not on file. Patient reports following maximal activity level: > 4 METS REVIEW OF SYSTEMS: Anesthesia complications: no history of difficult intubation , adverse effects of anesthetic agents, or family history of anesthesia-related problems, nor malignant hyperthermia General: Denies: fever, chills, night sweats, and weight loss DIRECTOR DECISION SUPPORT: No h/o CVA/TIA/Seizures Respiratory: No h/o COPD, asthma dyspnea or recent URI Cardiovascular: No h/o chest pain/WI/CHF/valvula r disease/HTN GI: Dyspepsia Chronic Constipation : No h/o disease Renal: No h/o CRI/ESRD Endo: No h/o DM, Thyroid disease or recent steroid use Heme: No h/o excessive bleeding/ bruising, no h/o anemia, no h/o blood products Onc: No h/o malignancy VTE: No h/o DVT/PE Rheum: No h/o rheumatologic disease Psychiatric: Autism ID OCD Bipolar Disorder PHYSICAL EXAMINATION: General: Alert, no distress, uncooperative Skin: Skin texture and tugor normal. No rash or lesions HEENT: Poor dentition Neck: No carotid bruit, JVD, lymphadenopathy or goiter CV: Normal S1/S2, no murmurs/gallops/rub s Lungs: Lungs clear to auscultation. Good air entry bilaterally Abdomen: Abdomen soft and non-tender. BS normal No masses or organomegaly. Extremities: Extremities normal. No deformities, edema, clubbing or discoloration. Neuro: No focal neurological deficits Pulses: 2+ carotid and radial pulses : Not examined/ Not indicated AIRWAY EXAM: Mallampati Classification of Airway: Unable to assess Thyromental Distance: >6cm Neck Extension: FROM Mouth Opening: Unable to assess Teeth: Poor dentition ASA Classification: Class II: Individual with one system well controlled disease. Disease does not affect daily living. EKG: Date: 06/22/23 Result: pending LABS: Pending ASSESSMENT and PLAN (more content not included)... Normal [facility] Upkeep Worker Authentication Interface Message Text Patient was identified by name and date of . Alicia Hunt Normal [facility] XR CHEST PA+LAT 2 VIEWSon XR CHEST PA+LAT 2 VIEWS EXAMINATION: XR CHEST PA+LAT 2 VIEWS 06/22/2023 05:00 PM CLINICAL HISTORY: pre op exam ASSOCIATED DIAGNOSIS: Pre-op exam ORDERING PROVIDER: [employer] NOTE: -best images possible -cm COMPARISON: None FINDINGS: Cardiomediastinal silhouette: Normal. Lungs/Pleura: No focal pulmonary consolidation, effusion or pneumothorax. Lung volumes are low, causing crowding of the bronchovascular structures at the lung bases. There is mild elevation of the right hemidiaphragm. Musculoskeletal: Unremarkable. Gaseous distention of the bowel loops in the central abdomen with maria shaped appearance. The bowel loop measures 7.4 cm. IMPRESSION: 1. No acute cardiopulmonary abnormality identified. 2. Gaseous distention of the bowel loops in the central abdomen with maria shaped appearance. This is incompletely evaluated in this study. Recommend correlation with patient's clinical status and if indicated with dedicated abdominal radiograph/CT. MACRO: None Normal [facility] XR Chest PA and Lateralon EXAMINATION: XR CHEST PA+LAT 2 VIEWS 06/22/2023 05:00 PM CLINICAL HISTORY: pre op exam ASSOCIATED DIAGNOSIS: Pre-op exam ORDERING PROVIDER: [employer] NOTE: -best images possible -cm COMPARISON: None FINDINGS: Cardiomediastinal silhouette: Normal. Lungs/Pleura: No focal pulmonary consolidation, effusion or pneumothorax. Lung volumes are low, causing crowding of the bronchovascular structures at the lung bases. There is mild elevation of the right hemidiaphragm. Musculoskeletal: Unremarkable. Gaseous distention of the bowel loops in the central abdomen with maria shaped appearance. The bowel loop measures 7.4 cm. IMPRESSION: 1. No acute cardiopulmonary abnormality identified. 2. Gaseous distention of the bowel loops in the central abdomen with maria shaped appearance. This is incompletely evaluated in this study. Recommend correlation with patient's clinical status and if indicated with dedicated abdominal radiograph/CT. MACRO: None RADIOLOGY Krystal Epstein MD - 06/22/2023 EXAMINATION: XR CHEST PA+LAT 2 VIEWS 06/22/2023 05:00 PM CLINICAL HISTORY: pre op exam ASSOCIATED DIAGNOSIS: Pre-op exam ORDERING PROVIDER: [employer] NOTE: -best images possible -cm COMPARISON: None FINDINGS: Cardiomediastinal silhouette: Normal. Lungs/Pleura: No focal pulmonary consolidation, effusion or pneumothorax. Lung volumes are low, causing crowding of the bronchovascular structures at the lung bases. There is mild elevation of the right hemidiaphragm. Musculoskeletal: Unremarkable. Gaseous distention of the bowel loops in the central abdomen with maria shaped appearance. The bowel loop measures 7.4 cm. IMPRESSION: 1. No acute cardiopulmonary abnormality identified. 2. Gaseous distention of the bowel loops in the central abdomen with maria shaped appearance. This is incompletely evaluated in this study. Recommend correlation with patient's clinical status and if indicated with dedicated abdominal radiograph/CT. MACRO: None [facility] Radiology Study observation (narrative) [facility] XR Chest PA and LateralOrder ed By: Krystal Epstein on 06-22-2023 [facility] Work Phone: Progress Noteson 06-13-2023 Upkeep Worker Authentication Interface Message Text Parent/guardian(Nandini mcdonough @ [employer]) was contacted for PSE AND OR scheduled -- confirmed information with mom, also informed mom importance of receiving PSE call -- if not received surgery will be canceled ----- Tuesday, June 13, 2023 at 11:28:09 AM ----- ----- Provider: Orville Amaya Specialist -- Clinic: [place] ----- Normal [facility] DEPAKENE/ VALPROIC ACIDon DEPAKENE 59.3 ug/ml Normal 50.0-100.0 [facility] Comment on above: Performed By: #### V ALP #### [facility] [address] [place] [address] Dr. Nikky King DEPAKENE/ VALPROIC ACIDon DEPAKENE 43.6 ug/ml Critically low 50.0-100.0 [facility] Comment on above: Performed By: #### V ALP #### [facility] [address] [place] [address] Dr. Nikky King LITHIUMon 12-06-2022 [place] (Eskalith(R)), Serum 0.8 mmol/L Normal 0.5-1.2 [facility] Comment on above: Result Comment: A co ncentration of 0.5-0.8 mmol/L is advised for long-term use; concentrations of up to 1.2 mmol/L may be necessary during acute treatment. Detection Limit = 0.1 <0.1 indicates None Detected Performed By: #### L ITHIUM #### [facility] [address] [place] [address] Dr. Nikky King DEPAKENE/ VALPROIC ACIDon DEPAKENE 61.7 ug/ml Normal 50.0-100.0 [facility] Comment on above: Performed By: #### V ALP #### [facility] [address] [place] [address] Dr. Nikky King LITHIUMon 11-23-2022 [place] (Eskalith(R)), Serum 0.9 mmol/L Normal 0.5-1.2 [facility] Comment on above: Result Comment: A co ncentration of 0.5-0.8 mmol/L is advised for long-term use; concentrations of up to 1.2 mmol/L may be necessary during acute treatment. Detection Limit = 0.1 <0.1 indicates None Detected Performed By: #### L ITHIUM #### [facility] [address] [place] [address] Dr. Nikky King CALCIUMon 08-22-2022 Calcium [Mass/Vol] 9.6 mg/dL Normal 8.5-10.1 [facility] Comment on above: Performed By: #### C A, CREA #### [facility] [address] [place] [address] Dr. Nikky King CREATININEon 08-22-2022 Creatinine [Mass/Vol] 0.84 mg/dL Normal 0.70-1.30 [facility] Comment on above: Performed By: #### C A, CREA #### [facility] [address] [place] [address] Dr. Nikky King EGFR-AF NIGERIEN >60 Normal >=60 [facility] Comment on above: Performed By: #### C A, CREA #### [facility] [address] [place] [address] Dr. Nikky King EGFR-NON AF NIGERIEN >60 Normal >=60 [facility] Comment on above: Performed By: #### C A, CREA #### [facility] [address] [place] [address] Dr. Nikky King LITHIUMon 07-05-2022 [place] (Eskalith(R)), Serum 0.9 mmol/L Normal 0.5-1.2 [facility] Comment on above: Result Comment: A co ncentration of 0.5-0.8 mmol/L is advised for long-term use; concentrations of up to 1.2 mmol/L may be necessary during acute treatment. Detection Limit = 0.1 <0.1 indicates None Detected Performed By: #### L ITHIUM #### [facility] [address] [place] [address] Dr. Nikky Bermudez 05-17-2022 CNPN Telephone ([facility]) ---- JOHNNY COHEN ([id number]) 1990 M Date Time Provider Department 05/17/22 [facility] During your visit today, we recorded the following information about you: Josefina Miller Med Sec 05/17/2022 3:32 PM Signed Pt's aunt returning a call to Dr. Morales to discuss eye care for Johnny. Please try to reach her again at [phone] ([place]) Grupo Morales MD 05/18/2022 2:23 PM Signed Called today and yesterday after clinic to discuss. No answer, left msg to call back and leave a message. Lory Dan Medc 05/18/2022 3:19 PM Signed Cate, aunt, was leaving Dr Morales a message: At this time, the family would like to hold off on cataract surgery. Fyi Allergies As of Date: 05/17/2022 Noted Allergy Reaction BIAXIN (CLARITHROMYCIN) 05/04/2022 14 - Other: See Comments Comments: caregiver does not know Date Reviewed: 05/04/2022 Reviewed by: Galina Patiño MD - Fully Assessed Reason for Visit: REturned call [Other] Prescriptions as of 05/18/2022 - atorvastatin (LIPITOR) 10 mg tablet - clomiPRAMINE (ANAFRANIL) 75 mg capsule - cloNIDine HCl (CATAPRES) 0.2 mg tablet - famotidine (PEPCID) 20 mg tablet - fluticasone (FLONASE) 50 mcg/actuation nasal spray INSTILL 2 SPRAYS PER NOSTRIL EVERY MORNING FOR SINUS CONGESTION - guanFACINE (INTUNIV ER) 4 mg Tb24 - levothyroxine (SYNTHROID) 112 mcg tablet - LINZESS 290 mcg capsule Take 290 mcg by mouth once daily. - lithium carbonate (ESKALITH) 300 mg capsule - LORazepam (ATIVAN) 2 mg tab TAKE ONE TABLET BY MOUTH 3 TIMES DAILY ATIVAN - metoprolol tartrate, short acting, (LOPRESSOR) 50 mg tablet - MUCUS RELIEF ER 600 mg 12 hr tablet Take 600 mg by mouth twice daily. - naltrexone (TREXAN) 50 mg tablet TAKE TWO TABLETS BY MOUTH TWICE DAILY REVIA - OYSTER SHELL CALCIUM-VITAMIN D 500 mg-5 mcg (200 unit) per tablet Take 1 tablet by mouth twice daily. - polyethylene glycol 3350 (MIRALAX, GLYCOLAX) 17 gram/dose powder TAKE 17G WITH LIQUID BY MOUTH DAILY IN THE MORNING - QUEtiapine (SEROQUEL) 200 mg tablet - Sennosides 8.6 mg cap Take by mouth. - risperiDONE (RISPERDAL) 3 mg tablet - sertraline (ZOLOFT) 100 mg tablet Problem List As Of Date: 05/17/2022 (None) Encounter Status:Closed by GRUPO MORALES on 05/18/22 [facility] 05-08-2022 CNPN Telephone (OPHTBE) ---- JOHNNY COHEN ([id number]) 1990 M Date Time Provider Department 05/08/22 ROBERT SEXTON During your visit today, we recorded the following information about you: Josefina Encisoner Med Sec 05/08/2022 9:07 AM Signed Nurse from [facility] where he resides called for [facility] for his file. Attn: Melanie Pickard [phone]. Surgery schedulers name and # was provided. Allergies As of Date: 05/08/2022 Noted Allergy Reaction BIAXIN (CLARITHROMYCIN) 05/04/2022 14 - Other: See Comments Comments: caregiver does not know Date Reviewed: 05/04/2022 Reviewed by: Galina Patiño MD - Fully Assessed Reason for Visit: Question [4968] Prescriptions as of 05/10/2022 - atorvastatin (LIPITOR) 10 mg tablet - clomiPRAMINE (ANAFRANIL) 75 mg capsule - cloNIDine HCl (CATAPRES) 0.2 mg tablet - famotidine (PEPCID) 20 mg tablet - fluticasone (FLONASE) 50 mcg/actuation nasal spray INSTILL 2 SPRAYS PER NOSTRIL EVERY MORNING FOR SINUS CONGESTION - guanFACINE (INTUNIV ER) 4 mg Tb24 - levothyroxine (SYNTHROID) 112 mcg tablet - LINZESS 290 mcg capsule Take 290 mcg by mouth once daily. - lithium carbonate (ESKALITH) 300 mg capsule - LORazepam (ATIVAN) 2 mg tab TAKE ONE TABLET BY MOUTH 3 TIMES DAILY ATIVAN - metoprolol tartrate, short acting, (LOPRESSOR) 50 mg tablet - MUCUS RELIEF ER 600 mg 12 hr tablet Take 600 mg by mouth twice daily. - naltrexone (TREXAN) 50 mg tablet TAKE TWO TABLETS BY MOUTH TWICE DAILY REVIA - OYSTER SHELL CALCIUM-VITAMIN D 500 mg-5 mcg (200 unit) per tablet Take 1 tablet by mouth twice daily. - polyethylene glycol 3350 (MIRALAX, GLYCOLAX) 17 gram/dose powder TAKE 17G WITH LIQUID BY MOUTH DAILY IN THE MORNING - QUEtiapine (SEROQUEL) 200 mg tablet - Sennosides 8.6 mg cap Take by mouth. - risperiDONE (RISPERDAL) 3 mg tablet - sertraline (ZOLOFT) 100 mg tablet Problem List As Of Date: 05/08/2022 (None) Encounter Status:Closed by JOSEFINA ISABEL on 05/10/22 [facility] 05-05-2022 [facility] Telephone (OPHTBE) ---- JOHNNY COHEN ([id number]) 1990 M Date Time Provider Department 05/05/22 GRUPO MORALES During your visit today, we recorded the following information about you: Grupo Morales MD 05/05/2022 9:31 AM Signed Johnny Cohen is a 31 year old male calling in with a chief complaint of R eye white cataract. This patient was referred to me by my colleague Dr. Sexton who saw him 05/04/22 I called Cate (aunt, guardian) to discuss his case to better understand his self-injurious behaviors and ADLs currently. He currently lives in a detention and has a significant history of self-injurious behaviors including banging his head on things and punching his eyes. She believes cataract is a result of trauma, and I agree with her. These behaviors still happen on a weekly basis, and while there's 12/03 supervision at the detention, he has a lot of private time unmonitored as well. He is still able to see clearly out of the left eye. Given the difficult post-operative care involved AND the fact he can still see out of the left eye, there's fairly high risk compared to benefit at this point. His aunt will discuss with his brother about where to go and call me next week. Grupo Morales MD Allergies As of Date: 05/05/2022 Noted Allergy Reaction BIAXIN (CLARITHROMYCIN) 05/04/2022 14 - Other: See Comments Comments: caregiver does not know Date Reviewed: 05/04/2022 Reviewed by: Galina Patiño MD - Fully Assessed Reason for Visit: Cataract [1402] Prescriptions as of 05/05/2022 - atorvastatin (LIPITOR) 10 mg tablet - clomiPRAMINE (ANAFRANIL) 75 mg capsule - cloNIDine HCl (CATAPRES) 0.2 mg tablet - famotidine (PEPCID) 20 mg tablet - fluticasone (FLONASE) 50 mcg/actuation nasal spray INSTILL 2 SPRAYS PER NOSTRIL EVERY MORNING FOR SINUS CONGESTION - guanFACINE (INTUNIV ER) 4 mg Tb24 - levothyroxine (SYNTHROID) 112 mcg tablet - LINZESS 290 mcg capsule Take 290 mcg by mouth once daily. - lithium carbonate (ESKALITH) 300 mg capsule - LORazepam (ATIVAN) 2 mg tab TAKE ONE TABLET BY MOUTH 3 TIMES DAILY ATIVAN - metoprolol tartrate, short acting, (LOPRESSOR) 50 mg tablet - MUCUS RELIEF ER 600 mg 12 hr tablet Take 600 mg by mouth twice daily. - naltrexone (TREXAN) 50 mg tablet TAKE TWO TABLETS BY MOUTH TWICE DAILY REVIA - OYSTER SHELL CALCIUM-VITAMIN D 500 mg-5 mcg (200 unit) per tablet Take 1 tablet by mouth twice daily. - polyethylene glycol 3350 (MIRALAX, GLYCOLAX) 17 gram/dose powder TAKE 17G WITH LIQUID BY MOUTH DAILY IN THE MORNING - QUEtiapine (SEROQUEL) 200 mg tablet - Sennosides 8.6 mg cap Take by mouth. - risperiDONE (RISPERDAL) 3 mg tablet - sertraline (ZOLOFT) 100 mg tablet Problem List As Of Date: 05/05/2022 (None) Encounter Status:Closed by GRUPO MORALES on 05/05/22 Normal [facility] Vital Signs Date Time Vital Sign Value Performing Clinician Faci lity 07-16-2023 08:06-0500 Body mass index (BMI) [Ratio] 33.97 kg/m2 Kim Horton MD Work Phone: [facility] 07-16-2023 08:06-0500 Body temperature 97.5 [degF] Kim Horton MD Work Phone: [facility] 07-16-2023 08:06-0500 Body weight 90.27 kg Kim Horton MD Work Phone: [facility] 07-16-2023 08:06-0500 Diastolic blood pressure 80 mm[Hg] Kim Horton MD Work Phone: [facility] 07-16-2023 08:06-0500 Heart rate 37 /min Kim Horton MD Work Phone: [facility] 07-16-2023 08:06-0500 Respiratory rate 15 /min Kim Horton MD Work Phone: [facility] 07-16-2023 08:06-0500 SaO2% (BldA) [Mass fraction] 100 % Kim Horton MD Work Phone: [facility] 07-16-2023 08:06-0500 Systolic blood pressure 110 mm[Hg] Kim Burt Work Phone: [facility] Encounters Encounter Date Encounter Type Care Provider Facility Start: 07-16-2023 End: 07-16-2023 Emergency department patient visit UNKNOWN PROVIDER Facility:[facility] Start: 07-16-2023 End: 07-16-2023 ambulatory ALEXX MCCURDY Facility:[facility] Start: 07-16-2023 End: 07-16-2023 Emergency department patient visit Kim Horton MD Work Phone: [facility] Comment on above: bradycardia (Low HR (33)) Start: 07-16-2023 End: 07-16-2023 Subsequent hospital visit by physician Alexx Mccurdy DDShira Work Phone: [facility] CT Scan Comment on above: Arrived Start: 07-16-2023 End: 07-19-2023 ambulatory UNKNOWN PROVIDER Facility:[facility] Start: 07-04-2023 End: 07-05-2023 ambulatory AMINA CRANE [place] [place]: 07-04-2023 End: 07-04-2023 Lab Drop off AMNIA CRANE [facility] Start: 06-26-2023 Telephone encounter Shanna marquez RN [facility] Pre Surgical Evaluation Comment on above: Pre-surgical Evaluat ion (Informed Consent for dental surgery & Anesthesia consent obtained) Start: 06-22-2023 End: 06-23-2023 ambulatory UNKNOWN PROVIDER Facility:[facility] Start: 06-22-2023 Encounter for other preprocedural examination UNKNOWN PROVIDER [facility] Start: 06-22-2023 End: 06-22-2023 ambulatory UNKNOWN PROVIDER Facility:[facility] Start: 06-22-2023 End: 06-22-2023 Subsequent hospital visit by physician Alin Op Xray 2 [facility] Rad[facility] Comment on above: Pre-op exam Start: 06-22-2023 End: 06-22-2023 Patient encounter procedure Pse Anesthesia [facility] Pre Surgical Evaluation Comment on above: Pre-op evaluation (P rimary Dx) Start: 06-22-2023 End: 06-22-2023 Preprocedural examination done Pse Anesthesia [facility] Work Phone: Start: 05-25-2023 Admission to [facility] Hiram Rodriguez DDS Work Phone: [facility] Start: 01-17-[address] AMINA CRANE Fac ility:[facility] Start: 12-07-2022 End: 12-08-[address] AMINA CRANE Facility:[facility] Start: 12-05-2022 End: 12-06-[address] AMINA CRANE Facility:[facility] Start: 11-27-2022 End: 11-28-[address] AMINA CRANE Facility:[facility] Start: 11-22-2022 End: 11-23-[address] AMINA CRANE Facility:[facility] Start: 08-30-2022 End: 08-30-[address] AMINA CRANE Facility:[facility] Start: 08-25-2022 Encounter for other specified special examinations DR MAINA CRANE [facility] Start: 08-22-2022 End: 08-23-[address] AMINA CRANE Facility:[facility] Start: 08-22-2022 End: 08-23-2022 Encounter for other specified special examinations DR AMINA CRANE Facility:[facility] Start: 07-04-2022 End: 07-05-[address] AMINA CRANE Facility:[facility] Start: 05-17-2022 Telephone encounter Grupo Morales MD Work Phone: Ophthalmology Comment on above: REturned call Start: 05-08-2022 Telephone encounter Robert Sexton MD Work Phone: Ophthalmology Comment on above: Question Start: 05-05-2022 Telephone encounter Grupo Morales MD Work Phone: Ophthalmology Comment on above: Cataract Start: 05-04-2022 End: 05-04-2022 ambulatory ROBERT SEXTON Facility:[facility] Start: 05-04-2022 End: 05-04-2022 Patient encounter procedure Robert Sexton MD Work Phone: Ophthalmology Comment on above: 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) Start: 03-29-2022 Telephone encounter To Be Assigned [facility] Physician Referral Service Comment on above: Medical Record Revie w Procedures Date Procedure Procedure Detail Performing Clinician Start: 07-16-2023 End: 07-16-2023 Assay of magnesium Bebo Groves PA-C Work Phone: Start: 07-16-2023 Ct head/brain w/o contrast material Bebo Groves PA-C Work Phone: Start: 06-22-2023 Radiologic exam ches t 2 views Chano Beyer MD Work Phone: Plan of Treatment Date Care Activity Detail Author Start: 2042 Shingles (RZV) Vacci ne (1 of 2) Shingles (RZV) [facility] Start: 07-10-2029 Tetanus vaccination Tetanus (T d or Tdap) Booster [facility] Start: 07-16-2023 End: 07-16-2023 DENTAL RESTORATIONS DENTAL RESTORATIONS Routine scheduled Caries 07/16/2023 1:45 PM EST [facility] Start: 07-16-2023 End: 07-16-2023 Admission to same day surgery center 07/16/2023 9:27 AM EST - 07/16/2023 11:24 AM EST Surgery [facility] [address] [place] [address] Alexx Mccurdy, DDS [address] [id number] DENTAL RESTORATIONS [facility] Comment on above: DENTAL RESTORATIONS Start: 07-16-2023 End: 07-16-2023 DENTAL RESTORATIONS DENTAL RESTORATIONS Routine scheduled Caries 07/16/2023 9:27 AM EST [facility] Start: 07-16-2023 Subsequent hospital visit by physician [facility] Start: 06-22-2023 End: 06-22-2023 Patient encounter procedure 06/22/2023 2:30 PM EDT Office Visit [facility] [address] [place] [address] Chano Beyer MD [address] [place] [address] [facility] Start: 04-20-2023 COVID-19 Vaccine ( season) COVID-19 Vaccine ( season) [facility] Start: 04-20-2023 Influenza vaccination Influenza Vacc ine (#1) [facility] Start: 05-20-2022 Influenza vaccination Influenza Vacc ine (#1) [facility] Start: 04-20-2022 Influenza vaccination INFLUENZA (#1) [facility] Start: 08-20-2021 DEPRESSION ASSESSMENT DEPRESSION ASS ESSMENT [facility] Start: 08-10-2021 COVID-19 VACCINE (4 - Booster for Pfizer series) COVID-19 VACCINE (4 - Booster for Pfizer series) [facility] Start: 2019 HPV Vaccine (optiona l start years) HPV Vaccine (optional start years) [facility] Start: 02-17-2014 Annual wellness visit Annual W ellness Visit (G0438) [facility] Start: 2011 Urine microalbumin profile DTAP,TDAP,TD (1 - Tdap) [facility] Start: 2010 Hepatitis C screening Hepatitis C An tibody [facility] Start: 2010 HEPATITIS C SCREENING HEPATITIS C SC REENING [facility] Start: 2010 HIV SCREENING HIV SCREENING [facility] Start: 2007 HIV screening HIV Test [facility] Start: 2004 Adult depression screening assessment DEPRESSION SCREENING [facility] Start: 1992 HEPATITIS B (1 of 3 - 3-dose series) HEPATITIS B (1 of 3 - 3-dose series) [facility] Start: 1992 Thyroid stimulating hormone measurement TSH [facility] DENTAL RESTORATIONS DENTAL OMAR RATIONS Routine scheduled Caries [facility] Immunizations Immunization Date Immunization Notes Care Provider Fa cility 06-15-2021 influenza, injectabl e, quadrivalent, preservative free To Assigned [facility] 06-15-2021 influenza virus vacc ine, unspecified formulation To Assigned [facility] 05-26-2020 influenza, injectabl e, quadrivalent, preservative free To Assigned [facility] 07-10-2019 tetanus toxoid, redu alex diphtheria toxoid, and acellular pertussis vaccine, adsorbed To Assigned [facility] 06-13-2019 influenza, injectabl e, quadrivalent, preservative free To Assigned [facility] 05-29-2018 influenza, injectabl e, quadrivalent, preservative free To Assigned [facility] 06-13-2017 influenza, injectabl e, quadrivalent, contains preservative To Assigned [facility] 06-10-2015 influenza, injectabl e, quadrivalent, preservative free To Assigned [facility] 06-12-2012 influenza, seasonal, injectable To A ssigned [facility] 05-03-2011 influenza, seasonal, injectable, preservative free To Assigned [facility] 06-15-2010 influenza, seasonal, injectable To A ssigned [facility] 07-07-2009 novel influenza-H1N1 -09, preservative-free, injectable To Assigned [facility] 05-11-2009 influenza, seasonal, injectable To A ssigned [facility] 06-15-2008 influenza, seasonal, injectable To A ssigned [facility] 06-11-2008 influenza virus vacc ine, whole virus To Assigned [facility] Payers Date Payer Category Payer Unknown [id number] 2017 Medicaid [id number] 2013 Medicare [id number] 1992 Unknown [id number] 2.16.8 [id number] 1992 Unknown [id number] 2.16. [id number] 1992 Unknown [id number] 2.16. [id number] 1992 Unknown [id number] 2.16. [id number] 1992 Unknown [id number] 2.16. [id number] 1992 Unknown [id number] 2.16. [id number] 1992 Unknown [id number] 2.16. [id number] 1992 Unknown [id number] 2.16. [id number] 1957 Medicaid [id number] 1957 Medicare [id number] Unknown [id number] 2.16.84 [id number] Unknown [id number] 2.16.84 [id number] Unknown [id number] 2.16.84 [id number] Unknown [id number] 2.16.84 [id number] Unknown [id number] 2.16.84 [id number] Unknown [id number] 2.16.84 [id number] Unknown [id number] 2.16.84 [id number] Unknown [id number] 2.16.84 [id number] Social History Date Type Detail Facility Start: 07-08-2019 End: 06-22-2023 Tobacco smoking status ORIS Never smoked tobacco [facility] Start: 07-08-2019 End: 06-22-2023 Tobacco use and exposure Smokeless tobacco non-user [facility] Start: 02-04-2021 End: 06-22-2023 Alcohol intake Lifetime non-drinker (finding) [facility] Start: 07-13-2020 History SDOH Alcohol Frequency 1 [facility] Start: 1990 Sex Assigned At [facility] Start: 05-04-2022 Tobacco smoking stat us [facility] Tobacco smoking consumption unknown [facility] Start: 04-24-2022 End: 05-04-2022 Exposure to SARS-CoV-2 (event) Not sure [facility] Gender identity Not on file [facility] Tobacco smoking status No Smokin g Status Entered [facility] Clinical Notes 03-29-2022 to 07-16-2023 Discharge InstructionsAttachLeila Christie RN - 07/16/2023 8:01 AM Leila Toure RN - 07/16/2023 8:01 AM ESTTelephone Encounter - Shanna Sauceda RN - 06/26/2023 11:14 AM EST Note Date & Type Note Facility 07-16-2023 Hospital Discharg e instructions Bebo Groves PA-C - 07/16/2023 11:49 AM EST Discontinue Lopressor at this time until speaking with physician tomorrow 07/17/2023. guardian will return with any further concerns. All discharge instructions explained to patient and all questions answered. guardian asked to follow-up with the primary physician in the next 2-3 days. Return if any worsening symptoms or concerns. They understand return precautions and discharge instructions. Guardian was in agreement with this plan. The following attachments cannot be sent through Care Everywhere.Bradycardia (Icelandic)documented in this encounter [facility] 07-16-2023 Note Surgical Attestation : I have reviewed the patient's History and Physical Examination. I have personally seen and evaluated the patient, repeating knox portions. There is no significant interval change. Surgery is still indicated. Yes Consent reviewed and signed by patient/family: Yes Operative site verified and marked: site verified but not marked as not anatomically possible Bobbi Oswald DDS 07/16/2023 7:09 AM [facility] 07-16-2023 Emergency department Note Permission treat given from Cate legal guardian [facility] 07-16-2023 Emergency department Note Permission treat given from Cate legal guardian documented in this encounter [facility] 07-04-2023 Evaluation + Plan note Diagnostic Tests PendingLithium Level 07/04/23 [facility] 06-26-2023 Telephone encounter Note Informed Consent for dental surgery & Anesthesia consent obtained and scanned into [employer]. Scheduled for surgery 07/16/2023. [facility] 06-26-2023 Miscellaneous Notes Informed Consent for dental surgery & Anesthesia consent obtained and scanned into [employer]. Scheduled for surgery 07/16/2023. documented in this encounter [facility] 06-22-2023 Note Presurgical Evaluati on (Pre-Admission Testing) Consultation Johnny Cohen, [id number] 32 year old Male 06/22/2023 Consult placed to PSE by Dr. Mccurdy due to significant PMH of Patient needs a PSE TELEPHONE ASSESSMENT Total Score: 0 Johnny Cohen is scheduled for DENTAL RESTORATIONS on 07/16/2023. Preop diagnosis of: Pre-Op Diagnosis Codes: * Caries [K02.9] HISTORY OF PRESENT ILLNESS: Patient is here for presurgical optimization and education prior to surgery. RECENT ILLNESS: Serious illness or hospitalization within the last six months. 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 Social History Tobacco Use Smoking status: Never Smokeless tobacco: Never Substance Use Topics Alcohol use: Never Drug use: Never MEDICAL HISTORY: No past medical history on file. SURGICAL HISTORY: Past Surgical History: Procedure Laterality Date DENTAL RESTORATIONS N/A 06/13/2018 Procedure: DENTAL RESTORATIONS, extraction; Surgeon: Lyndsay Zuluaga DDS; Location: [facility] SERVICES; Service: Dental DENTAL RESTORATIONS Bilateral 02/03/2021 Procedure: DENTAL RESTORATIONS; Surgeon: Alexx Mccurdy DDS; Location: [facility]; Service: Dental ANESTHESIA REVIEW OF SYSTEMS: Eyes/ENT: Negative Teeth: Loose Teeth and Missing Teeth Pulmonary: Negative Cardio-vascular: Negative G.I./ Hepatic: Negative Renal/: Negative Neurological: Negative Gynecological: N/A Psychiatric: autism Musculoskeletal: Negative Endocrine: Thyroid disease Hematologic: Negative Constitutional: Negative Skin: n/a PREVIOUS ANESTHETIC COMPLICATIONS: Anesthesia Complications No anesthesia history noted FAMILY HISTORY OF ANESTHETIC COMPLICATIONS: No CURRENT MEDICATION LIST: Current Outpatient Medications Medication Sig Dispense Refill GuanFACINE HCl (TENEX) 4 MG er tablet atorvastatin (LIPITOR) 10 MG tablet ClearLax 17 GM/SCOOP powder TAKE 17G WITH LIQUID BY MOUTH DAILY IN THE MORNING metoprolol (LOPRESSOR) 50 MG tablet Mucus Relief 600 MG SR tablet Take 600 mg by mouth 2 times daily. Calcium Carbonate-Vitamin D (Oyster Shell Calcium/D) 500-200 MG-UNIT TABS Take 1 Tablet by mouth 2 times daily. guanfacine (TENEX) 1 MG tablet guanfacine 1 mg tablet Linzess 290 MCG CAPS capsule FLUTICASONE PROPIONATE HFA INHALATION Inhale by mouth. cloNIDine (CATAPRES) 0.2 MG tablet Take 0.2 mg by mouth 2 times daily. docusate sodium (COLACE) 100 MG capsule Take 100 mg by mouth 2 times daily. famotidine (PEPCID) 20 MG tablet Take 20 mg by mouth 2 times daily. QUEtiapine (SEROQUEL) 200 MG tablet Take 200 mg by mouth 2 times daily. risperiDONE (RISPERDAL) 3 MG tablet Take 3 mg by mouth 2 times daily. Sennosides (SENNA) 8.6 MG CAPS Take by mouth. sertraline (ZOLOFT) 100 MG tablet Take 100 mg by mouth daily. levothyroxine (SYNTHROID, LEVOTHROID) 112 MCG tablet Take 112 mcg by mouth daily. lithium 300 MG capsule Take 300 mg by mouth 3 times daily (with meals). lorazepam (ATIVAN) 2 MG tablet Take 2 mg by mouth every 6 hours as needed for Anxiety. naltrexone (DEPADE) 50 MG tablet Take 50 mg by mouth daily. benztropine (COGENTIN) 0.5 MG tablet Take 0.5 mg by mouth 2 times daily. clomiPRAMINE (ANAFRANIL) 75 MG capsule Take 75 mg by mouth at bedtime. No current facility-administered medications for this visit. HEIGHT: Data Unavailable WEIGHT: Weight was 90.4 kg on 06/22/2023 BMI: Data Unavailable VITAL SIGNS: There were no vitals filed for this visit. PAIN ASSESSMENT: Severity: 0 Location: N/A AIRWAY EXAM: Mallampati score: 2 TMD: Adequate Neck Extension/ Flexion: Adequate Mouth Opening: Adequate Dentition: Missing teeth Micrognathia/Overbite: No PHYSICAL EXAM: Eyes: Normal ENT: Nares normal, Mucosa normal, and Neck supple Pulmonary: Chest clear to auscultation bilaterally Cardiovascular: RRR with S1S2 Abdomen: Soft and non-tender Extremities: No gross or obvious abnormalities Neurologic: Awake, alert, oriented, No motor deficits, and Sensation grossly intact Psychiatric: alert and oriented to person, place and time, Appropriate mood/affect Skin: No gross or obvious abnormalities on visible skin FUNCTIONAL CAPACITY: 4-10 mets LABS, TESTS, CONSULTS ORDERED: No orders or meds were signed during this encounter LABORATORY DATA: CBC None Basic Metabolic Panel None TESTS REVIEWED: I personally reviewed and interpreting and findings were: CXRay: No Chest x-ray found EKG: Normal sinus rhythm T wave abnor (more content not included)... [facility] 06-22-2023 Evaluation note Presurgical Evaluation (Pre-Admission Testing) Consultation Johnny Cohen, [id number] 32 year old Male 06/22/2023 Consult placed to PSE by Dr. Mccurdy due to significant PMH of Patient needs a PSE TELEPHONE ASSESSMENT Total Score: 0 Johnny Cohen is scheduled for DENTAL RESTORATIONS on 07/16/2023. Preop diagnosis of: Pre-Op Diagnosis Codes: * Caries [K02.9] HISTORY OF PRESENT ILLNESS: Patient is here for presurgical optimization and education prior to surgery. RECENT ILLNESS: Serious illness or hospitalization within the last six months. 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 Social History Tobacco Use Smoking status: Never Smokeless tobacco: Never Substance Use Topics Alcohol use: Never Drug use: Never MEDICAL HISTORY: No past medical history on file. SURGICAL HISTORY: Past Surgical History: Procedure Laterality Date DENTAL RESTORATIONS N/A 06/13/2018 Procedure: DENTAL RESTORATIONS, extraction; Surgeon: Lyndsay Zuluaga DDS; Location: [facility]; Service: Dental DENTAL RESTORATIONS Bilateral 02/03/2021 Procedure: DENTAL RESTORATIONS; Surgeon: Alexx Mccurdy DDS; Location: [facility]; Service: Dental ANESTHESIA REVIEW OF SYSTEMS: Eyes/ENT: Negative Teeth: Loose Teeth and Missing Teeth Pulmonary: Negative Cardio-vascular: Negative G.I./ Hepatic: Negative Renal/: Negative Neurological: Negative Gynecological: N/A Psychiatric: autism Musculoskeletal: Negative Endocrine: Thyroid disease Hematologic: Negative Constitutional: Negative Skin: n/a PREVIOUS ANESTHETIC COMPLICATIONS: Anesthesia Complications No anesthesia history noted FAMILY HISTORY OF ANESTHETIC COMPLICATIONS: No CURRENT MEDICATION LIST: Current Outpatient Medications Medication Sig Dispense Refill GuanFACINE HCl (TENEX) 4 MG er tablet atorvastatin (LIPITOR) 10 MG tablet ClearLax 17 GM/SCOOP powder TAKE 17G WITH LIQUID BY MOUTH DAILY IN THE MORNING metoprolol (LOPRESSOR) 50 MG tablet Mucus Relief 600 MG SR tablet Take 600 mg by mouth 2 times daily. Calcium Carbonate-Vitamin D (Oyster Shell Calcium/D) 500-200 MG-UNIT TABS Take 1 Tablet by mouth 2 times daily. guanfacine (TENEX) 1 MG tablet guanfacine 1 mg tablet Linzess 290 MCG CAPS capsule FLUTICASONE PROPIONATE HFA INHALATION Inhale by mouth. cloNIDine (CATAPRES) 0.2 MG tablet Take 0.2 mg by mouth 2 times daily. docusate sodium (COLACE) 100 MG capsule Take 100 mg by mouth 2 times daily. famotidine (PEPCID) 20 MG tablet Take 20 mg by mouth 2 times daily. QUEtiapine (SEROQUEL) 200 MG tablet Take 200 mg by mouth 2 times daily. risperiDONE (RISPERDAL) 3 MG tablet Take 3 mg by mouth 2 times daily. Sennosides (SENNA) 8.6 MG CAPS Take by mouth. sertraline (ZOLOFT) 100 MG tablet Take 100 mg by mouth daily. levothyroxine (SYNTHROID, LEVOTHROID) 112 MCG tablet Take 112 mcg by mouth daily. lithium 300 MG capsule Take 300 mg by mouth 3 times daily (with meals). lorazepam (ATIVAN) 2 MG tablet Take 2 mg by mouth every 6 hours as needed for Anxiety. naltrexone (DEPADE) 50 MG tablet Take 50 mg by mouth daily. benztropine (COGENTIN) 0.5 MG tablet Take 0.5 mg by mouth 2 times daily. clomiPRAMINE (ANAFRANIL) 75 MG capsule Take 75 mg by mouth at bedtime. No current facility-administered medications for this visit. HEIGHT: Data Unavailable WEIGHT: Weight was 90.4 kg on 06/22/2023 BMI: Data Unavailable VITAL SIGNS: There were no vitals filed for this visit. PAIN ASSESSMENT: Severity: 0 Location: N/A AIRWAY EXAM: Mallampati score: 2 TMD: Adequate Neck Extension/ Flexion: Adequate Mouth Opening: Adequate Dentition: Missing teeth Micrognathia/Overbite: No PHYSICAL EXAM: Eyes: Normal ENT: Nares normal, Mucosa normal, and Neck supple Pulmonary: Chest clear to auscultation bilaterally Cardiovascular: RRR with S1S2 Abdomen: Soft and non-tender Extremities: No gross or obvious abnormalities Neurologic: Awake, alert, oriented, No motor deficits, and Sensation grossly intact Psychiatric: alert and oriented to person, place and time, Appropriate mood/affect Skin: No gross or obvious abnormalities on visible skin FUNCTIONAL CAPACITY: 4-10 mets LABS, TESTS, CONSULTS ORDERED: No orders or meds were signed during this encounter LABORATORY DATA: CBC None Basic Metabolic Panel None TESTS REVIEWED: I personally reviewed and interpreting and findings were: CXRay: No Chest x-ray found EKG: Normal sinus rhythm T wave abnormality, consider anterior ischemia Prolonged QT interval or tu fusion, consider myocardial disease, electrolyte imbalance, or drug effects Abnormal ECG No previous ECGs available Confirmed by RITCHIE MARTE ([id number]) on 07/13/2020 3:11:47 PM ECHO: Last Echocardiogram: none found going back to 06/10/2018 Stress test date: Last StressTest: none found going back to 06/10/2018 Patient is medically optimized for surgery. This note will be forwarded to the referring provider. Patient should follow up with referring provider. Attestation: I have spent 30 total minutes. Visit activities: - preparing to see the patient (e.g., review of tests) - obtaining and/or reviewing separately obtained history - performing a medically appropriate examination and/or evaluation - counseling and educating the patiecounseling and educating the patient/family/caregivernt/fam ayanna/caregiver - counseling and educating the patient/family/caregiver - ordering medications, tests, or procedures - referring and communicating with other health furnace caretaker (when not separately reported) - documenting clinical information in the electronic or other health record - independently interpreting results (not separately reported) and communicating results to the patient/family/caregiver - care coordination (not separately reported). Interviewer signature: Lacey Wilson MD 3:10 PM 06/22/2023 [facility] 06-22-2023 Miscellaneous Notes Presurgical Evaluation (Pre-Admission Testing) Consultation Johnny Cohen, [id number] 32 year old Male 06/22/2023 Consult placed to PSE by Dr. Mccurdy due to significant PMH of Patient needs a PSE TELEPHONE ASSESSMENT Total Score: 0 Johnny Cohen is scheduled for DENTAL RESTORATIONS on 07/16/2023. Preop diagnosis of: Pre-Op Diagnosis Codes: * Caries [K02.9] HISTORY OF PRESENT ILLNESS: Patient is here for presurgical optimization and education prior to surgery. RECENT ILLNESS: Serious illness or hospitalization within the last six months. 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 Social History Tobacco Use Smoking status: Never Smokeless tobacco: Never Substance Use Topics Alcohol use: Never Drug use: Never MEDICAL HISTORY: No past medical history on file. SURGICAL HISTORY: Past Surgical History: Procedure Laterality Date DENTAL RESTORATIONS N/A 06/13/2018 Procedure: DENTAL RESTORATIONS, extraction; Surgeon: Lyndsay Zuluaga DDS; Location: [facility]OPER[facility] SERVICES; Service: Dental DENTAL RESTORATIONS Bilateral 02/03/2021 Procedure: DENTAL RESTORATIONS; Surgeon: Alexx Mccurdy DDS; Location: [facility]; Service: Dental ANESTHESIA REVIEW OF SYSTEMS: Eyes/ENT: Negative Teeth: Loose Teeth and Missing Teeth Pulmonary: Negative Cardio-vascular: Negative G.I./ Hepatic: Negative Renal/: Negative Neurological: Negative Gynecological: N/A Psychiatric: autism Musculoskeletal: Negative Endocrine: Thyroid disease Hematologic: Negative Constitutional: Negative Skin: n/a PREVIOUS ANESTHETIC COMPLICATIONS: Anesthesia Complications No anesthesia history noted FAMILY HISTORY OF ANESTHETIC COMPLICATIONS: No CURRENT MEDICATION LIST: Current Outpatient Medications Medication Sig Dispense Refill GuanFACINE HCl (TENEX) 4 MG er tablet atorvastatin (LIPITOR) 10 MG tablet ClearLax 17 GM/SCOOP powder TAKE 17G WITH LIQUID BY MOUTH DAILY IN THE MORNING metoprolol (LOPRESSOR) 50 MG tablet Mucus Relief 600 MG SR tablet Take 600 mg by mouth 2 times daily. Calcium Carbonate-Vitamin D (Oyster Shell Calcium/D) 500-200 MG-UNIT TABS Take 1 Tablet by mouth 2 times daily. guanfacine (TENEX) 1 MG tablet guanfacine 1 mg tablet Linzess 290 MCG CAPS capsule FLUTICASONE PROPIONATE HFA INHALATION Inhale by mouth. cloNIDine (CATAPRES) 0.2 MG tablet Take 0.2 mg by mouth 2 times daily. docusate sodium (COLACE) 100 MG capsule Take 100 mg by mouth 2 times daily. famotidine (PEPCID) 20 MG tablet Take 20 mg by mouth 2 times daily. QUEtiapine (SEROQUEL) 200 MG tablet Take 200 mg by mouth 2 times daily. risperiDONE (RISPERDAL) 3 MG tablet Take 3 mg by mouth 2 times daily. Sennosides (SENNA) 8.6 MG CAPS Take by mouth. sertraline (ZOLOFT) 100 MG tablet Take 100 mg by mouth daily. levothyroxine (SYNTHROID, LEVOTHROID) 112 MCG tablet Take 112 mcg by mouth daily. lithium 300 MG capsule Take 300 mg by mouth 3 times daily (with meals). lorazepam (ATIVAN) 2 MG tablet Take 2 mg by mouth every 6 hours as needed for Anxiety. naltrexone (DEPADE) 50 MG tablet Take 50 mg by mouth daily. benztropine (COGENTIN) 0.5 MG tablet Take 0.5 mg by mouth 2 times daily. clomiPRAMINE (ANAFRANIL) 75 MG capsule Take 75 mg by mouth at bedtime. No current facility-administered medications for this visit. HEIGHT: Data Unavailable WEIGHT: Weight was 90.4 kg on 06/22/2023 BMI: Data Unavailable VITAL SIGNS: There were no vitals filed for this visit. PAIN ASSESSMENT: Severity: 0 Location: N/A AIRWAY EXAM: Mallampati score: 2 TMD: Adequate Neck Extension/ Flexion: Adequate Mouth Opening: Adequate Dentition: Missing teeth Micrognathia/Overbite: No PHYSICAL EXAM: Eyes: Normal ENT: Nares normal, Mucosa normal, and Neck supple Pulmonary: Chest clear to auscultation bilaterally Cardiovascular: RRR with S1S2 Abdomen: Soft and non-tender Extremities: No gross or obvious abnormalities Neurologic: Awake, alert, oriented, No motor deficits, and Sensation grossly intact Psychiatric: alert and oriented to person, place and time, Appropriate mood/affect Skin: No gross or obvious abnormalities on visible skin FUNCTIONAL CAPACITY: 4-10 mets LABS, TESTS, CONSULTS ORDERED: No orders or meds were signed during this encounter LABORATORY DATA: CBC None Basic Metabolic Panel None TESTS REVIEWED: I personally reviewed and interpreting and findings were: CXRay: No Chest x-ray found EKG: Normal sinus rhythm T wave abnormality, consider anterior ischemia Prolonged QT interval or tu fusion, consider myocardial disease, electrolyte imbalance, or drug effects Abnormal ECG No previous ECGs available Confirmed by RITCHIE MARTE ([id number]) on 07/13/2020 3:11:47 PM ECHO: Last Echocardiogram: none found going back to 06/10/2018 Stress test date: Last StressTest: none found going back to 06/10/2018 Patient is medically optimized for surgery. This note will be forwarded to the referring provider. Patient should follow up with referring provider. Attestation: I have spent 30 total minutes. Visit activities: - preparing to see the patient (e.g., review of tests) - obtaining and/or reviewing separately obtained history - performing a medically appropriate examination and/or evaluation - counseling and educating the patiecounseling and educating the patient/family/caregivernt/fam ayanna/caregiver - counseling and educating the patient/family/caregiver - ordering medications, tests, or procedures - referring and communicating with other health furnace caretaker (when not separately reported) - documenting clinical information in the electronic or other health record - independently interpreting results (not separately reported) and communicating results to the patient/family/caregiver - care coordination (not separately reported). Interviewer signature: Lacey Wilson MD 3:10 PM 06/22/2023 documented in this encounter [facility] 05-18-2022 Miscellaneous Notes Cate, aunt, was leaving Dr Moralse a message: At this time, the family would like to hold off on cataract surgery. Fyi Called today and yesterday after clinic to discuss. No answer, left msg to call back and leave a message. Pt's aunt returning a call to Dr. Morales to discuss eye care for Johnny. Please try to reach her again at [phone] (Cate Castle) documented in this encounter [facility] 05-08-2022 Miscellaneous Notes Nurse from [facility] where he resides called for [facility] for his file. Attn: Melanie Pickard [phone]. Surgery schedulers name and # was provided. documented in this encounter [facility] 05-05-2022 Miscellaneous Notes Johnny Cohen is a 31 year old male calling in with a chief complaint of R eye white cataract. This patient was referred to me by my colleague Dr. Sexton who saw him 05/04/22 I called Cate (aunt, guardian) to discuss his case to better understand his self-injurious behaviors and ADLs currently. He currently lives in a detention and has a significant history of self-injurious behaviors including banging his head on things and punching his eyes. She believes cataract is a result of trauma, and I agree with her. These behaviors still happen on a weekly basis, and while there's 24/7 supervision at the detention, he has a lot of private time unmonitored as well. He is still able to see clearly out of the left eye. Given the difficult post-operative care involved & the fact he can still see out of the left eye, there's fairly high risk compared to benefit at this point. His aunt will discuss with his brother about where to go and call me next week. Grupo Morales MD documented in this encounter [facility] 05-04-2022 Note HNO ID: [id number] Author: Robert Sexton MD Service: ? Author Type: Physician Type: Progress Notes Filed: 05/04/2022 11:00 AM Note Text: White cataract, right eye R exotropia No known hx of trauma, reportedly does hit his own eyes frequently Will require general anesthesia I think he could cooperate with post-op drops with experienced nursing staff at facility Total mature cataract right eye Autistic Needs general anesthesia Will need IOL measurements during surgery I have confirmed and edited as necessary the relevant ophthalmic history, ROS, and the neuro exam findings as obtained by others. I have seen and examined this patient. I have discussed the case and the management of this patient's care with the Resident/Fellow, if applicable. I also have reviewed and agree with the assessment and plan as stated above and agree with all of its relevant components. Robert Sexton MD May 04, 2022 10:56 AM [facility] 05-04-2022 History of Presen t illness Narrative White cataract, right eye R exotropia No known hx of trauma, reportedly does hit his own eyes frequently Will require general anesthesia I think he could cooperate with post-op drops with experienced nursing staff at facility Total mature cataract right eye Autistic Needs general anesthesia Will need IOL measurements during surgery I have confirmed and edited as necessary the relevant ophthalmic history, ROS, and the neuro exam findings as obtained by others. I have seen and examined this patient. I have discussed the case and the management of this patient's care with the Resident/Fellow, if applicable. I also have reviewed and agree with the assessment and plan as stated above and agree with all of its relevant components. Robert Sexton MD May 04, 2022 10:56 AM documented in this encounter [facility] 03-29-2022 Telephone encounter Note Care Gaps Scheduling Contact Details: I did not contact pt. Encounter 07/15/21 indicates pt does not see providers at [facility] at this time. Health Maintenance Due: Medicare AWV / PCP Visit: Due Eye Exam: Not due Foot Exam: Not due Annual Blood Work: Due Mammogram: N/A FIT: Not due [facility] 03-29-2022 Miscellaneous Notes Care Gaps Scheduling Contact Details: I did not contact pt. Encounter 07/15/21 indicates pt does not see providers at [facility] at this time. 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 Other and combined forms of senile cataract [facility] Diagnosis Caries- Primary Unspecified dental caries [facility] Caries- Primary Unspecified dental caries Caries- Primary Unspecified dental caries [facility] Diagnosis Caries- Primary Unspecified dental caries Pre-op evaluation- Primary Preoperative examination, unspecified Caries Unspecified dental caries [facility] Diagnosis Caries- Primary Unspecified dental caries Pre-op exam Preoperative examination, unspecified Caries Unspecified dental caries [facility] Diagnosis Bradycardia- Primary Other specified cardiac dysrhythmias History of autism Nonverbal Moderate intellectual disability Moderate intellectual disabilities [facility] Narrative No data [facility] No data available [facility] this [facility] No data available for this [facility] Summary Purpose Family History No Family History Records FoundNo Family History Records Found No data available for this section No Family History Records FoundNo Family History Records Found Advance Directives No Advanced Directives Records FoundNo Advanced Directives Records FoundNo Advanced Directives Records FoundNo Advanced Directives Records Found Reason for Referral Specialty Diagnoses / Procedures Referred By Johan mcfadden Referred To Contact Anesthesiology Diagnoses Caries Tio-Alexx England, DDS [address] [place] [id number] [facility] PRE SURGICAL EVAL [address] [place] [address] Referral ID Status Reason Start Date Expiration Date V isits Requested Visits Authorized [id number] Pending Review 05/25/2023 05/25/2024 1 1 Scheduling Instructions Your surgical team will reach out to you to schedule a preadmission testing appointment. Question Answer Reason for consult? Recommended PSE Risk Score Specialty Diagnoses / Procedures Referred By Johan t Referred To Contact Radiology Diagnoses Pre-op exam Procedures XR CHEST PA+LAT 2 VIEWS Chano Beyer MD [address] [place] [address] [facility] DIAGNOSTIC RADIOLOGY [address] [place] [phone] Referral ID Status Reason Start Date Expiration Date Visits Re quested Visits Authorized [id number] Closed 06/22/2023 06/21/2024 1 1 Specialty Diagnoses / Procedures Referred By Contac t Referred To Contact Cardiology Diagnoses Bradycardia History of autism Nonverbal Moderate intellectual disability Bebo Groves PA-C [address] [place] [address] [facility] CARDIOLOGY [facility] [address] [place] [address] Referral ID Status Reason Start Date Expiration Date V isits Requested Visits Authorized [id number] Pending Review 07/16/2023 07/16/2024 3 3 Scheduling Instructions Please call the [facility] at [phone] to schedule an appointment if one was not made for you today. Question Answer What is the primary reason for consult? Abnormal EKG [13] - nonverbal patient, asymptomatic bradycardia on lopressor At what location would you like the patient to be seen? [facility] ([address]) Additional Source Comments Reason for Visit (unrecogniz ed section and content) Reason Onset Date Comments Medical Record Review 03/29/2022 Reason Comments Cataract Evaluation Reason Comments Cataract Reason Comments Question Reason Comments REturned call Specialty Diagnoses / Procedures [facility] Referred To Contact Radiology Diagnoses Pre-op exam Procedures XR CHEST PA+LAT 2 VIEWS Chano Beyer MD [address] [place] [address] [facility] DIAGNOSTIC RADIOLOGY [address] [place] [address] [place] [address] Referral ID Status Reason Start Date Expiration Date Visits Re quested Visits Authorized [id number] Closed 06/22/2023 06/21/2024 1 1 Reason Onset Date Comments Pre-surgical Evaluation 06/26/2023 Informed Consent for dental surgery & Anesthesia consent obtained Reason Comments bradycardia Low HR (33) Specialty Diagnoses / Procedures Referred By Contac t Referred To Contact Ambulatory Surgery Diagnoses Caries Caries [K02.9] Procedures UNLISTED PROCEDURE, DENTOALVEOLAR STRUCTURES ANESTHESIA, INTRAORAL PROC, W/BX; NOS DENTAL RESTORATIONS Alexx Mccurdy, DDS [address] [place] [address] [facility] [address] [place] [phone] Phone: [phone] Referral ID Status Reason Start Date Expiration Date Visits Re quested Visits Authorized [id number] 3 3 Care Teams (unrecognized sec tion and content) Building Construction Superintendent Relationship Specialty Start Date End Date Aileen Corcoran DDS [address] [place] [phone] Resident Dentistry 08/20/20 Building Construction Superintendent Relationship Specialty Start Date End Date Aileen Corcoran DDS [address] [place] [id number] Resident Dentistry 08/20/20 Building Construction Superintendent Relationship Specialty Start Date End Date Aileen Corcoran DDS [address] [place], [place] [phone] Resident Dentistry 08/20/20 Building Construction Superintendent Relationship Specialty Start Date End Date Aileen Corcoran DDS [address] [place] [phone] Resident Dentistry 08/20/20 Building Construction Superintendent Relationship Specialty Start Date End Date Aileen Corcoran DDS [address] [place] [phone] Resident Dentistry 08/20/20 Building Construction Superintendent Relationship Specialty Start Date End Date Aileen Corcoran DDS [address] [place] [id number] Resident Dentistry 08/20/20 Building Construction Superintendent Relationship Specialty Start Date End Date Aileen Corcoran DDS [address] [place] [phone] Resident Dentistry 1/1/21 Source Comments (unrecognize d section and content) In the event this informatio n is protected by the Federal Confidentiality of Alcohol and Drug Abuse Patient Records regulations: The Federal rules restrict any use of the information to criminally investigate or prosecute any alcohol or drug abuse patient.[facility] the event this information is protected by the Federal Confidentiality of Alcohol and Drug Abuse Patient Records regulations: The Federal rules restrict any use of the information to criminally investigate or prosecute any alcohol or drug abuse patient.[facility] event this information is protected by the Federal Confidentiality of Alcohol and Drug Abuse Patient Records regulations: The Federal rules restrict any use of the information to criminally investigate or prosecute any alcohol or drug abuse patient.[facility] the event this information is protected by the Federal Confidentiality of Alcohol and Drug Abuse Patient Records regulations: The Federal rules restrict any use of the information to criminally investigate or prosecute any alcohol or drug abuse patient.[facility] (unrecognized sect ion and content) No Status Records FoundNo Status Records FoundNo Status Records FoundNo Status Records Found INFORMATION SOURCE (unrecogn ized section and content) DATE CREATED AUTHOR 05/19/2022 [facility] DATE CREATED AUTHOR AUTHOR'S ORGANIZ ATION 01/26/2023 [facility] DATE CREATED AUTHOR AUTHOR'S ORGANIZ ATION 07/06/2023 [facility] DATE CREATED AUTHOR AUTHOR'S ORGANIZ ATION 07/24/2023 [facility] Scheduled Active and Recently Administ ered Medications (unrecognized section and content) Medication Order 07/14/2023 07/15/2023 07/16/2023 lactated ringers iv bolus (COMPLETED) 1,000 mL, at 9,999 mL/hr, Intravenous, FLUID BOLUS, 1 dose, On 07/16/23 at 0954 [id number] (IV New Bag - P rovider: Jose Miguel Colbert, RN)1207 (IV Stop - Provider: Jose Miguel Colbert, RN) FOR RECORDS PERTAINING TO PATIENTS WHO ARE OR HAVE BEEN ENROLLED IN A CHEMICAL DEPENDENCY/SUBSTANCEABUSE PROGRAM, SOME INFORMATION MAY BE OMITTED. This clinical summary was aggregated from multiple sources. Caution should be exercised in using it in the provision of clinical care. This summary normalizes information from multiple sources, and as a consequence, information in this document may materially change the coding, format and clinical context of patient data. In addition, data may be omitted in some cases. CLINICAL DECISIONS SHOULD BE BASED ON THE PRIMARY CLINICAL RECORDS. [facility]. provides no warranty or guarantee of the accuracy or completeness of information in this document.
--- NOTE | 2023-10-27 22:35 | CT_ITS ---
[address] [address] Patient Name: JOHNNY DEVINE MRN: [id number] date: 1990 Sex: M Assigned Patient Location: ED.MAIN Current Patient Location: ER Accession/Order Number: [id number] Exam Date: 10/27/2023 23:30 Report Date: 10/28/2023 00:21 At the request of: FLOR CALDERON Procedure: CT abdomen pelvis w con CT ABDOMEN AND PELVIS WITH CONTRAST: INDICATION: abdominal pain. COMPARISON: None. TECHNIQUE:Multiple thin section transaxial slices were acquired through the abdomen and pelvis with intravenous contrast. Coronal and sagittal reconstructed images were reviewed. Oral contrastWas not administered. FINDINGS: LOWER CHEST: Dependent changes are present in the lung bases. LIVER: The liver is unremarkable. GALLBLADDER AND BILIARY SYSTEM: No obvious ductal dilation. No calcified stones. SPLEEN: The spleen is unremarkable. PANCREAS: The pancreas is unremarkable. ADRENAL GLANDS: The adrenal glands are unremarkable. KIDNEYS AND URETERS: There is no hydronephrosis of the kidneys.No obstructing urologic calcifications are present. VASCULATURE: Vascularity is unremarkable. PERITONEUM/RETROPERITONEUM: Peritoneum/retroperitoneum is unremarkable. LYMPH NODES: No suspicious lymphadenopathy. GASTROINTESTINAL TRACT: There are abnormally distended small bowel loops which are concerning for a bowel obstruction. A potential transition point may be in the right midabdomen. There is slight dilation of the sigmoid colon without evidence of sigmoid volvulus or obstruction. There is severe gaseous distention of the stomach.No definitive acute inflammatory changes are present.The appendix is visualized and is not inflamed. BLADDER: The urinary bladder is unremarkable. REPRODUCTIVE SYSTEM: Reproductive system is unremarkable. BODY WALL: There is a tiny fat-containing umbilical hernia. BONES: Osseous structures are unremarkable. CT/CT abdomen pelvis w con IMPRESSION: Imaging findings in this examination are concerning for small bowel obstruction. There is also severe gaseous distention of the stomach. Possible transition point may be in the right mid abdomen. Electronically authenticated by: ANJU LARSEN Date: 10/28/2023 00:21
[2023-10-27] MEDS: ONDANSETRON PF 4 MG/2 ML VIAL IV (22:40)
[2023-10-27 22:44] LABS: Basophils Percent Auto 0.2 % (0.2-2.0); Eosinophils Percent Auto 0.2 % (0.9-7.0); Hematocrit 39.3 % (42.0-54.0); Hemoglobin 12.3 g/dL (14.0-18.0); Immature Granulocytes Abs Auto 0.06 10^3/uL (0.00-0.03); Immature Granulocytes Pct Auto 0.5 % (0.0-0.5); Lymphocytes Absolute Auto 1.5 10^3/uL (1.2-3.8); Lymphocytes Percent Auto 12.4 % (20.5-60.0); Mean Corpuscular HGB Conc 31.3 g/dL (29.9-35.2); Mean Corpuscular Hemoglobin 26.6 pg (25.9-34.0); Mean Corpuscular Volume 84.9 fL (80.0-94.0); Mean Platelet Volume 9.3 fL (9.5-13.5); Monocytes Absolute Auto 0.5 10^3/uL (0.3-0.8); Monocytes Percent Auto 3.8 % (1.7-12.0); Neutrophils Absolute Auto 9.9 10^3/uL (1.4-6.5); Neutrophils Percent Auto 82.9 % (43.0-75.0); Platelet Count 222 10^3/uL (150-450); Red Blood Count 4.63 10^6/uL (4.70-6.10); Red Cell Distribution Width 14.1 % (11.0-15.0)
--- NOTE | 2023-10-27 22:48 | ED_ITS ---
HPI - Abdominal Pain General Chief Complaint: Abdominal Pain Stated Complaint: ABDOMINAL PAIN Time Seen by Provider: 10/27/23 22:31 History of Present Illness HPI narrative: non verbal autistic [facility]. Reportedly constipated for 3-4 days and then diarrhea and vomiting tonight. No fever. No dyspnea. Transferred for evaluation. Related Data Home Medications Medication Instructions Recorded Confirmed acetaminophen 325 mg tablet 650 mg PO Q4H PRN fever or pain 08/23/23 10/27/23 (Tactinal) atorvastatin 10 mg tablet 10 mg PO DAILY 08/23/23 10/27/23 benzonatate 100 mg capsule 100 mg PO Q8H PRN cough 08/23/23 10/27/23 bisacodyl 10 mg rectal suppository 10 mg AZ Q5D PRN constipation 08/23/23 10/27/23 calcium carbonate 500 mg-vitamin 1 tab PO BID 08/23/23 10/27/23 D3 5 mcg (200 unit) tablet (Oyster Shell Calcium-Vitamin D3) clonidine HCl 0.2 mg tablet 0.2 mg PO TID 08/23/23 10/27/23 denosumab 60 mg/mL subcutaneous 60 mg subcut .[id number] 08/23/23 10/27/23 syringe (Prolia) divalproex 125 mg capsule,delayed 500 mg PO BID 08/23/23 10/27/23 release sprinkle famotidine 20 mg tablet 20 mg PO BID 08/23/23 10/27/23 fluticasone propionate 50 2 spray intranasal .every morning 08/23/23 10/27/23 mcg/actuation nasal spray,suspension guaifenesin 400 mg tablet (Chest 400 mg PO .daily morning 08/23/23 10/27/23 Congestion Relief) levothyroxine 112 mcg tablet 112 mcg PO DAILY 08/23/23 10/27/23 linaclotide 290 mcg capsule 290 mcg PO DAILY 08/23/23 10/27/23 (Linzess) lithium carbonate 300 mg capsule 300 mg PO BID 08/23/23 10/27/23 lorazepam 2 mg tablet 2 mg PO TID-QID 08/23/23 10/27/23 naltrexone 50 mg tablet 100 mg PO BID 08/23/23 10/27/23 polyethylene glycol 3350 17 17 g PO DAILY 08/23/23 10/27/23 gram/dose oral powder quetiapine 200 mg tablet 200 mg PO TID 08/23/23 10/27/23 risperidone 3 mg tablet 3 mg PO BID 08/23/23 10/27/23 sertraline 100 mg tablet 100 mg PO DAILY 08/23/23 10/27/23 sertraline 50 mg tablet 50 mg PO DAILY 08/23/23 10/27/23 camphor-eucalyptus oil-menthol 4.8 1 applic topical TID 10/27/23 10/27/23 %-1.2 %-2.6 % topical ointment (Chest Rub) guaifenesin 400 mg tablet (Chest 400 mg PO BID PRN congestion 10/27/23 10/27/23 Congestion Relief) loratadine 10 mg tablet 10 mg PO Q24H 10/27/23 10/28/23 montelukast 10 mg tablet 10 mg PO BEDTIME 10/27/23 10/28/23 mupirocin 2 % topical ointment 1 applic topical BID NASALLY 10/27/23 10/28/23 ondansetron 4 mg disintegrating 4 mg PO Q12H PRN nausea and 10/27/23 10/27/23 tablet vomiting sennosides 8.6 mg capsule (senna) 8.6 mg PO BID 10/27/23 10/27/23 sodium chloride 0.65 % nasal spray 2 spray intranasal TID 10/27/23 10/28/23 aerosol (Saline Nasal) sodium chloride 0.9 % for 2.5 ml inhalation Q4H PRN SOB 10/27/23 10/28/23 nebulization Allergies Allergy/AdvReac Type Severity Reaction Status Date / Time clarithromycin [From Biaxin] AdvReac Severe Abdominal Verified 08/23/23 21:37 Pain biaxin AdvReac Abdominal Uncoded 08/23/23 21:36 Pain Review of Systems ROS Status of ROS unobtainable due to mental status 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 - Other developmental disorders of scholastic skills (ICD-10) Osteoporosis ?M81.0 - Age-related osteoporosis without current pathological fracture (ICD- 10) Cataract ?H26.9 - Unspecified cataract (ICD-10) ADHD ?F90.9 - Attention-deficit hyperactivity disorder, unspecified type (ICD-10) Bipolar 1 disorder ?F31.9 - Bipolar disorder, unspecified (ICD-10) High cholesterol ?E78.00 - Pure hypercholesterolemia, unspecified (ICD-10) Hypothyroid ?E03.9 - Hypothyroidism, unspecified (ICD-10) OCD (obsessive compulsive disorder) ?F42.9 - Obsessive-compulsive disorder, unspecified (ICD-10) Autism ?F84.0 - Autistic disorder (ICD-10) Social History Smoking status: Never smoker Exam Constitutional Vital Signs, click to edit/add: Last Vital Signs Temp 98.1 F 10/27/23 22:23 Pulse 96 H 10/28/23 13:07 Resp 27 H 10/28/23 13:07 BP 136/101 H 10/28/23 13:07 Pulse Ox 98 10/28/23 13:26 O2 Del Method Room Air 10/28/23 13:26 Common normals: no apparent distress, alert and well nourished Other: awake and has eyes open. No attempt to communicate or even make eye contact HENMT Common normals: normocephalic and head/scalp atraumatic Other: right pupil opaque-dense cataract-no reactivity. left pupil normal and reactive Respiratory Common normals: normal respiratory effort, no retractions, no use of accessory muscles and clear to auscultation bilaterally Cardio Common normals: regular rate, regular rhythm, S1 normal heart sound and S2 normal heart sound GI Common normals: Normal to inspection, nondistended, normoactive bowel sounds present, soft to palpation and non-tender Extremity Other: no obvious trauma to extremities. makes no attempt to move them. did withdraw right arm appropriately during blood draw Neuro Other: awake Course Vital Signs Vital signs: Vital Signs Temperature 98.1 F 10/27/23 22:23 Pulse Rate 89 10/27/23 22:23 Respiratory Rate 16 10/27/23 22:23 Blood Pressure 147/104 H 10/27/23 22:23 Temperature 98.1 F 10/27/23 22:23 Pulse Rate 96 H 10/28/23 13:07 Respiratory Rate 27 H 10/28/23 13:07 Blood Pressure 136/101 H 10/28/23 13:07 Pulse Oximetry 98 10/28/23 13:26 Oxygen Delivery Method Room Air 10/28/23 13:26 MDM - Abdominal Pain MDM Narrative Medical decision making narrative: [facility] of [facility] and [facility]. Patient non verbal Autistic who is full code. abdomen is distended but not tense. CT with finding of SBO and severe gaseous distension. NG placed by nursing. Discussed with Dr Edmondson who recommended transfer to a larger facility. Patient accepted at [facility] patient pulled his NG tube out. Nursing will replace. Patient also noted to have shallow respirations Lab Data Labs: Lab Results 10/27/23 10/28/23 10/28/23 Range/Units 22:33 01:40 06:10 WBC 12.0 H (4.0-11.0) 10^3/uL RBC 4.63 L (4.70-6.10) 10^6/uL Hgb 12.3 L (14.0-18.0) g/dL Hct 39.3 L (42.0-54.0) % MCV 84.9 (80.0-94.0) fL MCH 26.6 (25.9-34.0) pg MCHC 31.3 (29.9-35.2) g/dL RDW 14.1 (11.0-15.0) % Plt Count 222 (150-450) 10^3/uL MPV 9.3 L (9.5-13.5) fL Neut % (Auto) 82.9 H (43.0-75.0) % Lymph % (Auto) 12.4 L (20.5-60.0) % Chaves % (Auto) 3.8 (1.7-12.0) % Eos % (Auto) 0.2 L (0.9-7.0) % Baso % (Auto) 0.2 (0.2-2.0) % Neut # (Auto) 9.9 H (1.4-6.5) 10^3/uL Lymph # (Auto) 1.5 (1.2-3.8) 10^3/uL Chaves # (Auto) 0.5 (0.3-0.8) 10^3/uL Eos # (Auto) 0.0 (0.0-0.7) 10^3/uL Baso # (Auto) 0.0 (0.0-0.1) 10^3/uL Abs Immat Gran (auto) 0.06 H (0.00-0.03) 10^3/uL Imm/Tot Granulo (auto) 0.5 (0.0-0.5) % Puncture Site Rradial ABG pH 7.326 L (7.350-7.450) ABG pCO2 35.1 (35.0-45.0) mmHg ABG pO2 88.5 (80.0-100.0) mmHg ABG HCO3 18.3 L (22.0-26.0) mmol/L ABG O2 Saturation 97.2 % ABG Base Excess -7.7 L (-2.0-2.0) mmol/L Wilber Test Positive (POSITIVE) Sodium 136 (136-145) mmol/L Potassium 4.1 (3.5-5.1) mmol/L Chloride 102 (98-107) mmol/L Carbon Dioxide 22.8 (21.0-32.0) mmol/L Anion Gap 15.3 BUN 21.0 H (7.0-18.0) mg/dL Creatinine 1.14 (0.70-1.30) mg/dL Est GFR ( Amer) >60 (>=60) Est GFR (Non-Af Amer) >60 (>=60) BUN/Creatinine Ratio 18.4 Glucose 135 H (74-106) mg/dL Lactate 2.8 H* 3.0 H* (0.4-2.0) mmol/L Calcium 9.9 (8.5-10.1) mg/dL Total Bilirubin 0.3 (0.2-1.0) mg/dL AST 17 (15-37) U/L ALT 18 (16-63) U/L Alkaline Phosphatase 45 L (46-116) U/L Total Protein 9.0 H (6.4-8.2) g/dL Albumin 3.8 (3.4-5.0) g/dL Globulin 5.2 g/dL Albumin/Globulin Ratio 0.7 Lipase 16.0 (16.0-77.0) U/L Discharge Plan Discharge Chief Complaint: Abdominal Pain Clinical Impression: SBO (small bowel obstruction) Patient Disposition: [facility] Time of Disposition Decision: 12:58 Discharge Location: [facility] Condition: Fair Mode of Transportation: EMS Discharge Date/Time: 10/28/23 14:40
[2023-10-27 23:10] LABS: Alanine Aminotransferase 18 U/L (16-63); Albumin Globulin Ratio 0.7; Albumin Level 3.8 g/dL (3.4-5.0); Alkaline Phosphatase 45 U/L (46-116); Anion Gap 15.3; Aspartate Amino Transferase 17 U/L (15-37); BUN Creatinine Ratio 18.4; Bilirubin Total 0.3 mg/dL (0.2-1.0); Calcium 9.9 mg/dL (8.5-10.1); Carbon Dioxide 22.8 mmol/L (21.0-32.0); Chloride 102 mmol/L (98-107); Estimated GFR (African America >60 (>=60); Estimated GFR (Non-African Ame >60 (>=60); Globulin 5.2 g/dL; Glucose 135 mg/dL (74-106); Potassium 4.1 mmol/L (3.5-5.1); Sodium 136 mmol/L (136-145)
[2023-10-27 23:12] LABS: Lactate/Lactic Acid 2.8 mmol/L (0.4-2.0)
[2023-10-27] MEDS: 0.9 % SODIUM CHLORIDE 1,000 ML 100 ML IV (23:15)
[2023-10-27] MEDS: PROMETHAZINE HCL 25 MG/ML VIAL 12.5 MG IV (23:15)
[2023-10-28] VITALS (34 sets, daily range): BP systolic 128–175; BP diastolic 93–133; PULSE 89–122; RESP 19–48; O2SAT 89–99
[2023-10-28] MEDS: PROMETHAZINE HCL 25 MG/ML VIAL 12.5 MG IV (01:46)
[2023-10-28] MEDS: DIPHENHYDRAMINE HCL 50 MG/ML (1ML) VIAL IV (01:46)
--- NOTE | 2023-10-28 03:15 | XR_ITS ---
The [address] [address] Patient Name: JOHNNY DEVINE MRN: [id number] date: 1990 Sex: M Assigned Patient Location: ER Current Patient Location: ER Accession/Order Number: [id number] Exam Date: 10/28/2023 03:20 Report Date: 10/28/2023 04:22 At the request of: FLOR CALDERON Procedure: XR chest 1V EXAMINATION: XR chest 1V HISTORY: ng tube placement confirmation COMPARISON: No relevant comparison available. FINDINGS: LUNGS: Markedly underexpanded lungs; no appreciable infiltrates. VASCULATURE: No increased pulmonary vasculature. PLEURA: No pneumothorax, effusion, or pleural thickening. CARDIAC: No convincing cardiomegaly. MEDIASTINUM: No visible mass or adenopathy. BONES: No fracture or visible bone lesion. OTHER: Numerous air-filled distended loops of bowel within upper abdomen. Markedly distended stomach with nasogastric tube extending into body of stomach. XR/XR chest 1V IMPRESSION: 1. Nasogastric tube with tip in distal body of stomach. 2. Abnormally distended stomach and bowel within upper abdomen; obstruction versus ileus. 3. Low lung volume examination; no convincing infiltrates. Electronically authenticated by: EPIFANIO NYE Date: 10/28/2023 04:22
--- NOTE | 2023-10-28 03:33 | PC.NURSE ---
this nurse placed order for chest xray to confirm placement of ng tube placed by previous nurse. patient continues to be uncomfortable and tachycardic. patient noted to be fidgeting frequently, despite benadryl and phenergan being given.
--- NOTE | 2023-10-28 05:30 | PC.NURSE ---
while all nurses in ER assisting with a full arrest, patient pulled NG tube out. Patient noted to be calmly laying in bed, less anxious and fidgety. physician notified.
--- NOTE | 2023-10-28 06:00 | XR_ITS ---
The [address] [address] Patient Name: JOHNNY DEVINE MRN: [id number] date: 1990 Sex: M Assigned Patient Location: ER Current Patient Location: ER Accession/Order Number: [id number] Exam Date: 10/28/2023 06:00 Report Date: 10/28/2023 06:08 At the request of: FLOR CALDERON Procedure: XR chest 1V SINGLE VIEW CHEST: 10/28/2023 6:00 AM EDT CLINICAL HISTORY:NG PLACEMENT COMPARISONS: None. TECHNIQUE: Single frontal view of the chest, utilizing portable technique. Portable radiography should be considered a technically compromised study. Strongly consider dedicated PA and lateral chest radiographs, as clinically indicated. FINDINGS: LINES AND TUBES: NG tube tip and side-port in stomach. There is gastric distention with debris. CARDIAC SILHOUETTE: Within normal limits. MEDIASTINAL AND HILAR CONTOUR: Within normal limits. PULMONARY PARENCHYMA AND PLEURA: Markedly diminished lung volumes. Poor inspiratory effort. Left basilar atelectasis. No pneumothorax or pleural effusion. OSSEOUS STRUCTURES:Nothing significant. OTHER COMMENTS:There is marked gastric distention of air and large bowel in the upper abdomen. XR/XR chest 1V IMPRESSION: 1. Satisfactory NG tube position. 2. Marked distention of stomach with air and debris. Follow-up. 3. Significant gaseous distention of large bowel loops in the upper abdomen. Correlate for ileus versus distal colonic obstruction. Follow-up. This report was generated with voice recognition software. Effort has been made to ensure accuracy of this report, however, occasional wording errors may persist. Please contact our office with any questions. Electronically authenticated by: PEGGY PRESCOTT Date: 10/28/2023 06:08
--- NOTE | 2023-10-28 06:04 | PC.NURSE ---
NG tube replaced at th is time. Physician notified prior to NG tube replacement that patient noted to be tachypneic, with respirations around 60/min. 16fr NG tube placed to right nare at 60 and secured to nare. output noted. chest xray ordered after placement. Patient tolerated with minimal discomfort
--- NOTE | 2023-10-28 06:05 | PC.NURSE ---
patient placed in soft wrist restraints to prevent patient from pulling NG tube out. verbal order from Dr. Medrano to place non-violent restraints
[2023-10-28 06:22] LABS: ABG PCO2 35.1 mmHg (35.0-45.0); Allen Test POSITIVE (POSITIVE); Base Excess ABG -7.7 mmol/L (-2.0-2.0); HCO3 ABG 18.3 mmol/L (22.0-26.0); Oxygen Saturation ABG 97.2 %; PO2 ABG 88.5 mmHg (80.0-100.0); pH ABG 7.326 (7.350-7.450)
[2023-10-28 06:23] LABS: O2 Mode RA; Puncture Site RRADIAL
[2023-10-28] MEDS: 0.9 % SODIUM CHLORIDE 1,000 ML 1000 ML IV (09:15)
[2023-10-28] MEDS: ONDANSETRON PF 4 MG/2 ML VIAL IV (12:01)
--- NOTE | 2023-10-28 12:58 | ED.ABDPAIN1 ---
HPI - Abdominal Pain General Chief Complaint: Abdominal Pain Stated Complaint: ABDOMINAL PAIN Time Seen by Provider: 10/27/23 22:31 History of Present Illness HPI narrative: The patient was initially seen by Dr. Medrano and signed out to me after discussing the case with him thoroughly. Please see his full history and physical. Related Data Home Medications Medication Instructions Recorded Confirmed acetaminophen 325 mg tablet 650 mg PO Q4H PRN fever or pain 08/23/23 10/27/23 (Tactinal) atorvastatin 10 mg tablet 10 mg PO DAILY 08/23/23 10/27/23 benzonatate 100 mg capsule 100 mg PO Q8H PRN cough 08/23/23 10/27/23 bisacodyl 10 mg rectal suppository 10 mg [place] Q5D PRN constipation 08/23/23 10/27/23 calcium carbonate 500 mg-vitamin 1 tab PO BID 08/23/23 10/27/23 D3 5 mcg (200 unit) tablet (Oyster Shell Calcium-Vitamin D3) clonidine HCl 0.2 mg tablet 0.2 mg PO TID 08/23/23 10/27/23 denosumab 60 mg/mL subcutaneous 60 mg subcut .[id number] 08/23/23 10/27/23 syringe (Prolia) divalproex 125 mg capsule,delayed 500 mg PO BID 08/23/23 10/27/23 release sprinkle famotidine 20 mg tablet 20 mg PO BID 08/23/23 10/27/23 fluticasone propionate 50 2 spray intranasal .every morning 08/23/23 10/27/23 mcg/actuation nasal spray,suspension guaifenesin 400 mg tablet (Chest 400 mg PO .daily morning 08/23/23 10/27/23 Congestion Relief) levothyroxine 112 mcg tablet 112 mcg PO DAILY 08/23/23 10/27/23 linaclotide 290 mcg capsule 290 mcg PO DAILY 08/23/23 10/27/23 (Linzess) lithium carbonate 300 mg capsule 300 mg PO BID 08/23/23 10/27/23 lorazepam 2 mg tablet 2 mg PO TID-QID 08/23/23 10/27/23 naltrexone 50 mg tablet 100 mg PO BID 08/23/23 10/27/23 polyethylene glycol 3350 17 17 g PO DAILY 08/23/23 10/27/23 gram/dose oral powder quetiapine 200 mg tablet 200 mg PO TID 08/23/23 10/27/23 risperidone 3 mg tablet 3 mg PO BID 08/23/23 10/27/23 sertraline 100 mg tablet 100 mg PO DAILY 08/23/23 10/27/23 sertraline 50 mg tablet 50 mg PO DAILY 08/23/23 10/27/23 camphor-eucalyptus oil-menthol 4.8 1 applic topical TID 10/27/23 10/27/23 %-1.2 %-2.6 % topical ointment (Chest Rub) guaifenesin 400 mg tablet (Chest 400 mg PO BID PRN congestion 10/27/23 10/27/23 Congestion Relief) loratadine 10 mg tablet 10 mg PO Q24H 10/27/23 10/28/23 montelukast 10 mg tablet 10 mg PO BEDTIME 10/27/23 10/28/23 mupirocin 2 % topical ointment 1 applic topical BID NASALLY 10/27/23 10/28/23 ondansetron 4 mg disintegrating 4 mg PO Q12H PRN nausea and 10/27/23 10/27/23 tablet vomiting sennosides 8.6 mg capsule (senna) 8.6 mg PO BID 10/27/23 10/27/23 sodium chloride 0.65 % nasal spray 2 spray intranasal TID 10/27/23 10/28/23 aerosol (Saline Nasal) sodium chloride 0.9 % for 2.5 ml inhalation Q4H PRN SOB 10/27/23 10/28/23 nebulization Allergies Allergy/AdvReac Type Severity Reaction Status Date / Time clarithromycin [From Biaxin] AdvReac Severe Abdominal Verified 08/23/23 21:37 Pain biaxin AdvReac Abdominal Uncoded 08/23/23 21:36 Pain PFSH PFSH Medical History (Updated 10/28/23 @ 05:54 by Brennen Medrano MD) 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 - Other developmental disorders of scholastic skills (ICD-10) Osteoporosis ?M81.0 - Age-related osteoporosis without current pathological fracture (ICD-10) Cataract ?H26.9 - Unspecified cataract (ICD-10) ADHD ?F90.9 - Attention-deficit hyperactivity disorder, unspecified type (ICD-10) Bipolar 1 disorder ?F31.9 - Bipolar disorder, unspecified (ICD-10) High cholesterol ?E78.00 - Pure hypercholesterolemia, unspecified (ICD-10) Hypothyroid ?E03.9 - Hypothyroidism, unspecified (ICD-10) OCD (obsessive compulsive disorder) ?F42.9 - Obsessive-compulsive disorder, unspecified (ICD-10) Autism ?F84.0 - Autistic disorder (ICD-10) Social History Smoking status: Never smoker Exam Constitutional Vital Signs, click to edit/add: Last Vital Signs Temp 98.1 F 10/27/23 22:23 Pulse 96 H 10/28/23 13:07 Resp 27 H 10/28/23 13:07 BP 136/101 H 10/28/23 13:07 Pulse Ox 98 10/28/23 13:26 O2 Del Method Room Air 10/28/23 13:26 Course Vital Signs Vital signs: Vital Signs Temperature 98.1 F 10/27/23 22:23 Pulse Rate 89 10/27/23 22:23 Respiratory Rate 16 10/27/23 22:23 Blood Pressure 147/104 H 10/27/23 22:23 Temperature 98.1 F 10/27/23 22:23 Pulse Rate 96 H 10/28/23 13:07 Respiratory Rate 27 H 10/28/23 13:07 Blood Pressure 136/101 H 10/28/23 13:07 Pulse Oximetry 98 10/28/23 13:26 Oxygen Delivery Method Room Air 10/28/23 13:26 MDM - Abdominal Pain MDM Narrative Medical decision making narrative: The patient had been accepted at [facility] but there was an extended wait for a bed. Family requested [facility] and I have spoken to their accepting physician. He is stable for transfer. Differential Diagnosis Differential diagnosis: Likely abdominal pain, constipation, diverticulitis and small bowel obstruction Lab Data Attestation: I reviewed the patient's lab results. Labs: Lab Results 10/27/23 10/28/23 10/28/23 Range/Units 22:33 01:40 06:10 WBC 12.0 H (4.0-11.0) 10^3/uL RBC 4.63 L (4.70-6.10) 10^6/uL Hgb 12.3 L (14.0-18.0) g/dL Hct 39.3 L (42.0-54.0) % MCV 84.9 (80.0-94.0) fL MCH 26.6 (25.9-34.0) pg MCHC 31.3 (29.9-35.2) g/dL RDW 14.1 (11.0-15.0) % Plt Count 222 (150-450) 10^3/uL MPV 9.3 L (9.5-13.5) fL Neut % (Auto) 82.9 H (43.0-75.0) % Lymph % (Auto) 12.4 L (20.5-60.0) % [place] % (Auto) 3.8 (1.7-12.0) % Eos % (Auto) 0.2 L (0.9-7.0) % Baso % (Auto) 0.2 (0.2-2.0) % Neut # (Auto) 9.9 H (1.4-6.5) 10^3/uL Lymph # (Auto) 1.5 (1.2-3.8) 10^3/uL [place] # (Auto) 0.5 (0.3-0.8) 10^3/uL Eos # (Auto) 0.0 (0.0-0.7) 10^3/uL Baso # (Auto) 0.0 (0.0-0.1) 10^3/uL Abs Immat Gran (auto) 0.06 H (0.00-0.03) 10^3/uL Imm/Tot Granulo (auto) 0.5 (0.0-0.5) % Puncture Site Rradial ABG pH 7.326 L (7.350-7.450) ABG pCO2 35.1 (35.0-45.0) mmHg ABG pO2 88.5 (80.0-100.0) mmHg ABG HCO3 18.3 L (22.0-26.0) mmol/L ABG O2 Saturation 97.2 % ABG Base Excess -7.7 L (-2.0-2.0) mmol/L Wilber Test Positive (POSITIVE) Sodium 136 (136-145) mmol/L Potassium 4.1 (3.5-5.1) mmol/L Chloride 102 (98-107) mmol/L Carbon Dioxide 22.8 (21.0-32.0) mmol/L Anion Gap 15.3 BUN 21.0 H (7.0-18.0) mg/dL Creatinine 1.14 (0.70-1.30) mg/dL Est GFR ( Amer) >60 (>=60) Est GFR (Non-Af Amer) >60 (>=60) BUN/Creatinine Ratio 18.4 Glucose 135 H (74-106) mg/dL Lactate 2.8 H* 3.0 H* (0.4-2.0) mmol/L Calcium 9.9 (8.5-10.1) mg/dL Total Bilirubin 0.3 (0.2-1.0) mg/dL AST 17 (15-37) U/L ALT 18 (16-63) U/L Alkaline Phosphatase 45 L (46-116) U/L Total Protein 9.0 H (6.4-8.2) g/dL Albumin 3.8 (3.4-5.0) g/dL Globulin 5.2 g/dL Albumin/Globulin Ratio 0.7 Lipase 16.0 (16.0-77.0) U/L Imaging Data CT scan - abdomen: Radiologist's impression: ITS Impressions Abdomen/Pelvis CT 10/27/23 22:35 IMPRESSION: Imaging findings in this examination are concerning for small bowel obstruction. There is also severe gaseous distention of the stomach. Possible transition point may be in the right mid abdomen. Electronically authenticated by: ANJU LARSEN Date: 10/28/2023 00:21 Chest X-Ray 10/28/23 03:15 IMPRESSION: 1. Nasogastric tube with tip in distal body of stomach. 2. Abnormally distended stomach and bowel within upper abdomen; obstruction versus ileus. 3. Low lung volume examination; no convincing infiltrates. Electronically authenticated by: EPIFANIO NYE Date: 10/28/2023 04:22 Chest X-Ray 10/28/23 06:00 IMPRESSION: 1. Satisfactory NG tube position. 2. Marked distention of stomach with air and debris. Follow-up. 3. Significant gaseous distention of large bowel loops in the upper abdomen. Correlate for ileus versus distal colonic obstruction. Follow-up. This report was generated with voice recognition software. Effort has been made to ensure accuracy of this report, however, occasional wording errors may persist. Please contact our office with any questions. Electronically authenticated by: PEGGY PRESCOTT Date: 10/28/2023 06:08 Discharge Plan Discharge Chief Complaint: Abdominal Pain Clinical Impression: SBO (small bowel obstruction) Patient Disposition: [facility] Time of Disposition Decision: 12:58 Discharge Location: [facility] Condition: Fair Mode of Transportation: EMS Discharge Date/Time: 10/28/23 14:40
== END 2023-10-28 14:40 | disposition short-term general hospital (02) ==
PROVIDERS: Emergency Provider Internal Medicine; PCP Family Medicine
DX: K56.609 Unspecified intestinal obstruction, unspecified as to partial versus complete obstruction (principal); F84.0 Autistic disorder; Z79.899 Other long term (current) drug therapy; Z79.890 Hormone replacement therapy; F81.89 Other developmental disorders of scholastic skills; M81.0 Age-related osteoporosis without current pathological fracture; F90.9 Attention-deficit hyperactivity disorder, unspecified type; F31.9 Bipolar disorder, unspecified; E03.9 Hypothyroidism, unspecified; E78.00 Pure hypercholesterolemia, unspecified; F42.9 Obsessive-compulsive disorder, unspecified
CPT/HCPCS: 36415; 36600; 51702; 71045; 74177; 80053; 82805; 83605; 83690; 85025; 93005; 96361; 96374; 96375; 96376; 99285; Q9967

== ENCOUNTER 2024-02-19 13:11 | Outpatient (OUT) | payer MEDICARE, MEDICAID, SELFPAY ==
[2024-02-20 12:09] LABS: Lithium (Eskalith(R)), Serum 0.9 mmol/L (0.5-1.2)
== END 2024-02-19 13:12 | disposition home or self-care (01) ==
LOC: LAB 13:12
PROVIDERS: PCP Family Medicine; Visit Provider Family Medicine
DX: Z79.899 Other long term (current) drug therapy (principal); G40.909 Epilepsy, unspecified, not intractable, without status epilepticus
CPT/HCPCS: 36415; 80178

== ENCOUNTER 2024-05-19 04:00 | Outpatient (REF) | payer MEDICARE, MEDICAID, SELFPAY ==
--- OUTSIDE RECORDS SUMMARY | 2024-05-20 06:50 | XMS_ITS | CCD ---
Author Organization [facility] CliniSymo Care Team Providers Care Natural Resource Economist Name Role Phone Jewell MATA, Gallagher Unavailable [phone] Unavailable Primary Care Provider Unavailabl e Unavailable Primary Care Provider Unavailabl e CRANE, DR HERMAN Pollack Primary Care Unavailable CRANE, DR HERMAN Pollack Admitting Unavailable CRANE, DR HERMAN Pollack Attending Unavailable CRANE, DR HERMAN Pollack Consulting Unavailable CRANE, DR HERMAN Pollack Primary Care Unavailable CRANE, DR HERMAN Pollack Admitting Unavailable CRANE, DR HERMAN Pollack Attending Unavailable CRANE, DR HERMAN Pollack Consulting Unavailable CRANE, DR HERMAN Pollack Consulting Unavailable CRANE, DR HERMAN Pollack Primary Care Unavailable CRANE, DR HERMAN Pollack Admitting Unavailable CRANE, DR HERMAN Pollack Attending Unavailable CRANE, DR HERMAN Pollack Consulting Unavailable CRANE, DR HERMAN Pollack Admitting Unavailable CRANE, DR HERMAN Pollack Primary Care Unavailable CRANE, DR HERMAN Pollack Attending Unavailable CRANE, DR HERMAN Pollack Admitting Unavailable CRANE, DR HERMAN Pollack Primary Care Unavailable CRANE, DR HERMAN Pollack Attending Unavailable CRANE, DR HERMAN Pollack Consulting Unavailable CRANE, DR HERMAN Pollack Admitting Unavailable CRANE, DR HERMAN Pollack Primary Care Unavailable CRANE, DR HERMAN Pollack Attending Unavailable CRANE, DR HERMAN Pollack Consulting Unavailable CRANE, DR HERMAN Pollack Admitting Unavailable CRANE, DR HERMAN Pollack Primary Care Unavailable CRANE, DR HERMAN Pollack Attending Unavailable CRANE, DR HERMAN Plolack Consulting Unavailable CRANE, DR HERMAN Pollack Admitting Unavailable CRANE, DR HERMAN Pollack Primary Care Unavailable CRANE, DR HERMAN Pollack Attending Unavailable CRANE, DR HERMAN Pollack Consulting Unavailable Jewell MATA, Gallagher Unavailable HERMAN CRANE Primary Care Physician Unavailable Primary Care Provider Unavailabl e Unavailable Primary Care Provider Unavailabl e PROVIDER, UNKNOWN Admitting Unavailable PROVIDER, UNKNOWN Attending Unavailable KASSIDY, MARI Attending Unavailable PROVIDER, UNKNOWN Admitting Unavailable PROVIDER, UNKNOWN Admitting Unavailable KIM HORTON Attending Unavailable PROVIDER, UNKNOWN Attending Unavailable PROVIDER, UNKNOWN Admitting Unavailable MARKIV, LING Attending Unavailable PROVIDER, UNKNOWN Admitting Unavailable PROVIDER, UNKNOWN Attending Unavailable PROVIDER, UNKNOWN Admitting Unavailable AL-MASHNI, HARPREET Attending Unavailable AL-MASHNI, HARPREET Admitting Unavailable PROVIDER, UNKNOWN Admitting Unavailable PROVIDER, UNKNOWN Attending Unavailable FRANC BEYER Referring Unavailable KASSIDY, MARI Referring Unavailable KASSIDY, MARI Attending Unavailable KASSIDY, MARI Admitting Unavailable PROVIDER, UNKNOWN Attending Unavailable AL-MASHNI, HARPREET Admitting Unavailable PROVIDER, UNKNOWN Admitting Unavailable PROVIDER, UNKNOWN Attending Unavailable PHOENIX CARDENAS Referring Unavailable BEFFA, SAMUEL MYRICK Admitting Unava ilable GAN, ELIU Attending Unavailable CHEHROUALONSO, OSCAR THOMAS Attending Unavailable DANIELVICTORIA Attending Unavailable BENEDICT, EPIFANIO Attending Unavailable BENEDICT, EPIFANIO Referring Unavailable LOWE, CRIS Attending Unavailable CRANE, HERMAN Attending Unavailable CRANE, HERMAN Admitting Unavailable CRANE, HERMAN Admitting Unavailable CRANE, HERMAN Attending Unavailable CRANE, HERMAN Attending Unavailable CRANE, HERMAN Admitting Unavailable Markiv REBAR FABRICATOR-MOLD BURNER, Ling Unavailable Allergies Allergy Classification Reported Allergen(s) Allergy Type Date of Onset Reaction(s) Facility Macrolides (antibiotic) (1 source) Clarithromycin Drug Allergy 05-04-20 Other: See Comments [facility] (18 sources) Clarithromycin; Translations: [CLARITHROMYCIN] Propensity to adverse reactions to drug 06-12-20 Other [facility] Work Phone: (9 sources) Clarithromycin Drug Allergy 05-04-20 Other: See Comments [facility] (1 source) Clarithromycin Drug Allergy [facility] Repository Medications Current Medications Medication Drug Class(es) Dates Sig (Normalized) Sig (Original) acetaminophen 500 mg oral tablet (4 sources) Start: 12-28-2023 take 1 tablet by mouth every six hours as needed for pain acetaminophen (TYLENOL) 500 MG tablet Take 1 Tablet by mouth every 6 hours as needed for Pain or Fever. 56 Tablet 12/28/2023 Active Start: 12-28-2023 End: 12-28-2023 acetaminophen (TYLENOL) tabl et atorvastatin 10 mg oral tablet (20 sources) HMG-CoA Reductase Inhibitor Start: 01-21-2021 atorvastatin (LIPITOR) 10 MG tablet 01/21/2021 Active benoxinate hydrochloride 4 mg/ml / fluorescein sodium 2.5 mg/ml ophthalmic solution (1 source) Diagnostic Dye Start: 05-04-2022 End: 05-04-2022 fluorescein-benoxin ate 0.25-0.4 % 1 Drop (FLURESS) bisacodyl 10 mg rectal suppository (6 sources) Stimulant Laxative Start: 08-23-2023 End: 12-03-2023 take 10 mg rectal route once daily bisacodyl (DULCOLAX) 10 MG suppository Insert 10 mg in the rectum daily. 08/23/2023 Active Comment on above: 1 Suppository by REC JOSE JUAN route once daily. calcium carbonate 1250 mg / cholecalciferol 200 unt oral tablet (20 sources) Vitamin D Start: 01-13-2021 take 1 tablet by mouth twice daily Calcium Carbonate-Vitamin D (Oyster Shell Calcium/D) 500-200 MG-UNIT TABS Take 1 Tablet by mouth 2 times daily. 01/13/2021 Active Comment on above: Take 1 tablet by linda twice daily. chlorhexidine gluconate 1.2 mg/ml mouthwash (3 sources) Start: 12-28-2023 chlorhexidine (Peridex) 0.12 % oral solution Swish and expectorate twice a day. Do not swallow 473 mL 12/28/2023 Active clomiPRAMINE hydrochloride 75 mg oral capsule (20 sources) Tricyclic Antidepressant Start: 04-27-2022 End: 12-28-2023 clomiPRAMINE (ANAFRANIL) 75 mg capsule cloNIDine hydrochloride 0.2 mg oral tablet (20 sources) Central alpha-2 Adrenergic Agonist Start: 11-07-2023 take 1 tablet by mouth three times daily cloNIDine HCl (CATAPRES) 0.2 mg tablet Take 1 tablet by mouth three times a day. 0800, 1600, 2000 Please check blood pressure prior to administration and hold for systolic blood pressure 0 11/07/2023 Active Start: 04-27-2022 cloNIDine HCl (CATAPRES) 0.2 mg tablet Comment on above: Take 1 tablet by linda th three times a day. 0800, 1600, 2000 Please check blood pressure prior to administration and hold for systolic blood pressure < 100 1 ml denosumab 60 mg/ml prefilled syringe (6 sources) RANK Ligand Inhibitor Start: 023 inject 60 mg by subcutaneous injection once denosumab (PROLIA) 60 mg/mL Inject 60 mg subcutaneously one time only. 0 02/14/2023 Active Comment on above: Inject 60 mg subcuta neously one time only. docusate sodium 100 mg oral capsule (16 sources) take 1 capsule by mouth twice daily docusate sodium (COLACE) 100 MG capsule Take 100 mg by mouth 2 times daily. Active famotidine 20 mg oral tablet (20 sources) Histamine-2 Receptor Antagonist Start: famotidine (PEPCID) 20 mg tablet fluticasone propionate 0.05 mg/actuat metered dose nasal spray (20 sources) Corticosteroid Start: take 2 spray(s) nasal route once in the morning for congestion fluticasone (FLONASE) 50 mcg/actuation nasal spray INSTILL 2 SPRAYS PER NOSTRIL EVERY MORNING FOR SINUS CONGESTION 0 03/21/2022 Active FLUTICASONE PROP IONATE HFA INHALATION Inhale by mouth. Active FLUTICASONE PROP IONATE HFA INHALATION Inhale by mouth. 0 Active Comment on above: INSTILL 2 SPRAYS PER NOSTRIL EVERY MORNING FOR SINUS CONGESTION 12 hr guaiFENesin 600 mg extended release oral tablet (20 sources) Start: 01-13-2021 take 1 tablet by mouth twice daily Mucus Relief 600 MG SR tablet Take 600 mg by mouth 2 times daily. 01/13/2021 Active Comment on above: Take 600 mg by mouth twice daily. 24 hr guanFACINE 4 mg extended release oral tablet (20 sources) Central alpha-2 Adrenergic Agonist Start: 01-21-2021 GuanFACINE HCl (TENEX) 4 MG er tablet 01/21/2021 Active guanfacine (TENE X) 1 MG tablet guanfacine 1 mg tablet Active Comment on above: Take 4 mg by mouth o nce daily. ibuprofen 600 mg oral tablet (3 sources) Nonsteroidal Anti-inflammatory Drug Start: 12-28-19 take 1 tablet by mouth every six hours as needed for pain ibuprofen (MOTRIN) 600 MG tablet Take 1 Tablet by mouth every 6 hours as needed for Pain. 56 Tablet 12/28/2023 Active levothyroxine sodium 0.112 mg oral tablet (20 sources) l-Thyroxine Start: 04-27-20 take 1 tablet by mouth once daily levothyroxine (SYNTHROID) 112 mcg tablet Take 112 mcg by mouth once daily. 0 04/27/2022 Active Comment on above: Take 112 mcg by mout h once daily. linaclotide 0.29 mg oral capsule (20 sources) Guanylate Cyclase-C Agonist Start: 07-09-20 Linzess 290 MCG CAPS capsule 07/09/2020 Active Comment on above: Take 290 mcg by mout h once daily. lithium carbonate 300 mg oral capsule (20 sources) Start: 04-27-20 lithium carbonate (ESKALITH) 300 mg capsule Start: 04-27-2022 lithium carbon ate (ESKALITH) 300 mg capsule Take 300 mg by mouth two times a day. 1999 0 04/27/2022 Active Comment on above: Take 300 mg by mouth two times a day. 1999 loratadine 10 mg oral capsule (6 sources) take 1 capsule by mouth once daily at bedtime loratadine 10 mg cap Take 10 mg by mouth daily at bedtime. 0 Active Comment on above: Take 10 mg by mouth daily at bedtime. LORazepam 2 mg oral tablet (20 sources) Benzodiazepine Start: 2 take 1 tablet by mouth three times daily LORazepam (ATIVAN) 2 mg tab TAKE ONE TABLET BY MOUTH 3 TIMES DAILY ATIVAN 0 04/11/2022 Active take 1 tablet by linda th every six hours as needed for anxiety lorazepam (ATIVAN) 2 MG tablet Take 2 mg by mouth every 6 hours as needed for Anxiety. Active Comment on above: TAKE ONE TABLET BY M OUTH 3 TIMES DAILY ATIVAN metoprolol tartrate 50 mg oral tablet (20 sources) beta-Adrenergic Antony Start: 1 metoprolol (LOPRESSOR) 50 MG tablet 01/21/2021 Active montelukast 10 mg oral tablet (9 sources) Leukotriene Receptor Antagonist take 1 tablet by mouth once daily montelukast (SINGULAIR) 10 MG tablet Take 10 mg by mouth daily. Active Comment on above: Take 10 mg by mouth daily at bedtime. naloxone hydrochloride 40 mg/ml nasal spray (3 sources) Opioid Antagonist Start: 4 naloxone 4 mg/0.1 mL nasal liquid Use 1 [place] in one nostril (alternate sides) as needed for Drug Overdose for up to 1 dose. Every 2-3 mins. until help arrives. 2 Each 1 12/28/2023 Active naltrexone hydrochloride 50 mg oral tablet (20 sources) Opioid Antagonist Start: 2 take 1 tablet by mouth twice daily naltrexone (TREXAN) 50 mg tablet Take 50 mg by mouth two times a day. 0 04/19/2022 Active Start: 04-19-2022 take 2 tablets by mo uth twice daily naltrexone (TREXAN) 50 mg tablet TAKE TWO TABLETS BY MOUTH TWICE DAILY REVIA 0 04/19/2022 Active take 1 tablet by linda th once daily naltrexone (DEPADE) 50 MG tablet Take 50 mg by mouth daily. Active Comment on above: TAKE TWO TABLETS BY MOUTH TWICE DAILY REVIA Take 50 mg by mouth two times a day. polyethylene glycol 3350 57722 mg powder for oral solution (20 sources) Osmotic Laxative Start: 01-24-2021 End: 12-28-2023 polyethylene glycol 3350 (MIRALAX, GLYCOLAX) 17 gram/dose powder Take 17 g by mouth once daily. 0 03/21/2022 Active Comment on above: TAKE 17G WITH LIQUID BY MOUTH DAILY IN THE MORNING Take 17 g by mouth o nce daily. POLYETHYLENE GLYCOL EXTERNAL (3 sources) Start: 08-23-2023 take 17 g by mouth once daily POLYETHYLENE GLYCOL EXTERNAL Take 17 g by mouth daily. 08/23/2023 Active Start: 08-23-2023 take 17 g by mouth once daily POLYETHYLENE GLYCOL EXTERNAL Take 17 g by mouth daily. 0 08/23/2023 Active QUEtiapine 100 mg oral tablet (20 sources) Atypical Antipsychotic Start: 11-02-2023 End: 12-02-2023 take 1 tablet by mouth twice daily QUEtiapine (SEROQUEL) 100 mg tablet Take 1 tablet by mouth two times a day. 60 tablet 0 11/02/2023 Active Start: 04-27-2022 QUEtiapine (SE ROQUEL) 200 mg tablet Comment on above: Take 1 tablet by linda th two times a day. risperiDONE 3 mg oral tablet (20 sources) Atypical Antipsychotic Start: 2 take 1 tablet by mouth twice daily risperiDONE (RISPERDAL) 3 mg tablet Take 3 mg by mouth two times a day. 1999 0 04/27/2022 Active Comment on above: Take 3 mg by mouth t wo times a day. 1999 sennosides, group home 8.6 mg oral capsule (20 sources) Sennosides ([place] A) 8.6 MG CAPS Take by mouth. Active Comment on above: Take by mouth. Take 8.6 mg by mouth as needed. sertraline 100 mg oral tablet (20 sources) Serotonin Reuptake Inhibitor Start: 2 sertraline (ZOLOFT) 100 mg tablet Start: 04-27-2022 sertraline (ZO LOFT) 100 mg tablet Take 50 mg by mouth once daily. Take with 50 mg zoloft in the morning. 0 04/27/2022 Active take 1 tablet by linda th once daily, then take 2 tablets by mouth in the morning sertraline (ZOLOFT) 50 mg tablet Take 50 mg by mouth once daily. Take with 100mg zoloft in the morning 0 Active Comment on above: Take 50 mg by mouth once daily. Take with 50 mg zoloft in the morning. Take 50 mg by mouth once daily. Take with 100mg zoloft in the morning 20 ml sodium chloride 9 mg/ml injection (1 source) Start: 12-28-2023 sodium chloride 0.9 % 0.9 % injection tropicamide 10 mg/ml ophthalmic solution (1 source) Anticholinergic Start: 05-04-2022 End: 05-04-2022 tropicamide 1 % 1 Drop (MYDRIACYL) divalproex sodium 125 mg delayed release oral capsule (13 sources) Mood Stabilizer, Anti-epileptic Agent Start: 12-12-2023 divalproex (DEPAKOTE SPRINKLE) 125 MG CSDR capsule 125 mg 2 times daily. 12/12/[address] (D EPAKOTE) 125 mg EC tablet Take 125 mg by mouth two times a day. 1999 0 Active Comment on above: Take 125 mg by mouth two times a day. 1999 Completed/Discontinued Medications Medication Drug Class(es) Dates Sig (Normalized) Sig (Original) benztropine mesylate 0.5 mg oral tablet (14 sources) Anticholinergic, Antihistamine End: 12-28-2023 take 1 tablet by mouth twice daily benztropine (COGENTIN) 0.5 MG tablet Take 0.5 mg by mouth 2 times daily. 0 12/28/2023 Discontinued calcium chloride 0.0014 meq/ml / potassium chloride 0.004 meq/ml / sodium chloride 0.103 meq/ml / sodium lactate 0.028 meq/ml injectable solution (1 source) Start: 07-16-2023 End: 07-16-2023 lactated ringers iv bolus Problems Active Problems Problem Classification Problem Date Documented Date Episodic/Chronic Allergic reactions (2 sources) Eczema 10-31-2013 Episodic Anxiety disorders (20 sources) Obsessive-compulsive disorder; Translations: [Obsessive-compulsive disorder, unspecified] Onset: 09-16-1907-15-2019 Chronic Cataract (1 source) Senile combined form cataract of right eye; Translations: [Combined forms of age-related cataract, right eye] Chronic Developmental disorders (20 sources) Moderate intellectual disability; Translations: [Moderate intellectual disabilities] Onset: 09-16-1907-15-2019 Chronic Disorders of lipid metabolism (2 sources) Hypercholesterolemia 10-31-2013 Chronic Disorders usually diagnosed in infancy, childhood, or adolescence (18 sources) Autistic disorder; Translations: [Autistic disorder] Onset: 09-16-1907-15-2019 Chronic Epilepsy; convulsions (13 sources) Epilepsy; Translations: [Epilepsy, unspecified, not intractable, without status epilepticus] Onset: 11-06-19 24 11-07-2023 Chronic Intestinal obstruction without hernia (4 sources) Sigmoid volvulus; Translations: [Volvulus] Onset: 10-28-19 Resolved : 10-31-19 24 12-20-2023 Episodic Malaise and fatigue (9 sources) Weakness; Translations: [Other fatigue] Onset: 11-28-19 Episodic Mood disorders (20 sources) Bipolar disorder; Translations: [Bipolar disorder, unspecified] Onset: 09-16-1907-15-2019 Chronic Osteoporosis (5 sources) Age-related osteoporosis without current pathological fracture; Translations: [AGE-REL OSTEOPOR W/O CURR PATH FX] Onset: 01-06-20 23 Chronic Other aftercare (5 sources) 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; Translations: [OTH MCFP CURRENT DRUG THERAPY] Onset: 12-04-19 Episodic Other aftercare (1 source) Encounter for therapeutic drug level monitoring; Translations: [ENC THERAPEUTC DRUG LEVL MONITORING] Onset: 12-04-19 Episodic Other aftercare (1 source) Postoperative visit; Translations: [Encounter for other specified surgical aftercare] 11-28-2023 Episodic Other aftercare (1 source) Encounter for other specified surgical aftercare; Translations: [Postoperative visit] Onset: 11-28-19 Episodic Other gastrointestinal disorders (6 sources) Oropharyngeal dysphagia; Translations: [Dysphagia, oropharyngeal phase] Onset: 11-06-1911-07-2023 Episodic Other male genital disorders (1 source) Phimosis; Translations: [Phimosis] 12-03-2023 Episodic Other male genital disorders (1 source) Phimosis; Translations: [Phimosis] Onset: 12-03-19 Episodic Other nervous system disorders (1 source) Does not speak; Translations: [Aphasia] 07-16-2023 Chronic Other nervous system disorders (1 source) Unsteadiness on feet; Translations: [UNSTEADINESS ON FEET] Onset: 12-12-19 Episodic Other nervous system disorders (6 sources) Acute postoperative pain; Translations: [Other acute postprocedural pain] Onset: 11-05-1911-05-2023 Episodic Other nutritional; endocrine; and metabolic disorders (6 sources) Obese class I; Translations: [Obesity, unspecified] Onset: 11-02-1911-05-2023 Chronic Other nutritional; endocrine; and metabolic disorders (2 sources) Body mass index 30+ - obesity; Translations: [Body mass index (BMI) 31.0-31.9, adult] 12-19-2023 Chronic Other nutritional; endocrine; and metabolic disorders (1 source) Body mass index (BMI) 31.0-31.9, adult; Translations: [Body mass index (BMI) 31.0-31.9, adult] Onset: 12-19-19 Chronic Residual codes; unclassified (1 source) Disorientation, unspecified; Translations: [DISORIENTATION UNSPECIFIED] Onset: 12-04-19 Episodic Residual codes; unclassified (6 sources) History of laparoscopy; Translations: [Other specified postprocedural states] Onset: 11-05-1911-05-2023 Episodic Screening and history of mental health and substance abuse codes (1 source) History of neurodevelopmental disorder; Translations: [Personal history of other mental and behavioral disorders] 07-16-2023 Episodic Substance-related disorders (1 source) Other psychoactive substance use, unspecified, uncomplicated; Translations: [OTH PSYCHOACTIVE SBSTNC UNS UNCOMP] Onset: 12-11-19 Episodic Thyroid disorders (20 sources) Hypothyroidism; Translations: [Hypothyroidism, unspecified] Onset: 09-16-1907-15-2019 Chronic Past or Other Problems Problem Classification Problem Date Documented Da te Episodic/Chronic Cardiac dysrhythmias (9 sources) Bradycardia; Translations: [Bradycardia, unspecified] Onset: 07-16-2023 07-16-2023 Episodic Diseases of mouth; excluding dental (16 sources) Mucocele of lower lip; Translations: [Diseases of lips] Onset: 10-16-2019 06-07-2020 Episodic Disorders of teeth and jaw (20 sources) Dental caries; Translations: [Dental caries, unspecified] Onset: 06-11-2018 Resolved: 12-28-2023 06-11-2018 Episodic Other gastrointestinal disorders (16 sources) Chronic constipation; Translations: [Other constipation] Onset: 09-16-2018 07-13-2020 Episodic Other screening for suspected conditions (not mental disorders or infectious disease) (3 sources) Other specified abnormal findings of blood chemistry; Translations: [Patient encounter status] Onset: 07-07-2022 12-03-2023 Episodic Other skin disorders (16 sources) Eruption; Translations: [Rash and other nonspecific skin eruption] Onset: 09-16-2018 07-13-2020 Episodic Results Test Name Value Interpretation Reference Range Facility CHEMISTRYOrdered By: SYSTEM SYSTEM on 02-13-2024 Valpro Acid Lvl 98 microgram/mL Normal 50 - 99 mcg/mL Remisol Chem Physician Orderon 02-13-2024 Physician Order [id number]# 1.00TIFF Normal [facility] Valproic Acidon 02-13-2024 Valpro Acid Lvl 98 microgram/mL Normal 50-99 Fish [facility] Comment on above: Performed By: #### [id number] #### [facility] [address] [place] [address] [facility] 01-11-2024 CNPN Telephone (CORSMN) JOHNNY DEVINE ([id number]) 1990 M Date Time Provider Department 01/11/24 CRIS DINH During your visit today, we recorded the following information about you: Cris Dinh, RN 01/11/2024 1:50 PM Signed Jessica from [facility] [phone] is caller. She states was originally told Dr. Fairbanks would see patient if he wished, but he should follow up with Dr. Robin as he was the surgeon of record. They state Dr. Robin's office is telling them he needs to follow with Dr Fairbanks. In speaking with Dr. Fairbanks again; since patient is doing well and no symptoms-- there is no monitoring/testing that routinely must take place. Should there be concerns in the future that relate to CORS; he is happy to see patient. Jessica verbalizes understanding and no further needs at present time. Cris Dinh RN Allergies As of Date: 01/11/2024 Noted Allergy Reaction BIAXIN (CLARITHROMYCIN) 05/04/2022 14 - Other: See Comments Comments: caregiver does not know Date Reviewed: 12/03/2023 Reviewed by: Sukhdeep Barton OCCA - Fully Assessed Reason for Visit: Sweatband Perforator - Other [1203] Prescriptions as of 01/11/2024 - cloNIDine HCl (CATAPRES) 0.2 mg tablet Take 1 tablet by mouth three times a day. 0800, 1600, 2000 Please check blood pressure prior to administration and hold for systolic blood pressure < 100 - QUEtiapine (SEROQUEL) 100 mg tablet Take 1 tablet by mouth two times a day. - divalproex (DEPAKOTE) 125 mg EC tablet Take 125 mg by mouth two times a day. 1999 - loratadine 10 mg cap Take 10 mg by mouth daily at bedtime. - montelukast (SINGULAIR) 10 mg tablet Take 10 mg by mouth daily at bedtime. - denosumab (PROLIA) 60 mg/mL Inject 60 mg subcutaneously one time only. - sertraline (ZOLOFT) 50 mg tablet Take 50 mg by mouth once daily. Take with 100mg zoloft in the morning - atorvastatin (LIPITOR) 10 mg tablet - clomiPRAMINE (ANAFRANIL) 75 mg capsule - famotidine (PEPCID) 20 mg tablet - fluticasone (FLONASE) 50 mcg/actuation nasal spray INSTILL 2 SPRAYS PER NOSTRIL EVERY MORNING FOR SINUS CONGESTION - guanFACINE (INTUNIV ER) 4 mg Tb24 Take 4 mg by mouth once daily. - levothyroxine (SYNTHROID) 112 mcg tablet Take 112 mcg by mouth once daily. - LINZESS 290 mcg capsule Take 290 mcg by mouth once daily. - lithium carbonate (ESKALITH) 300 mg capsule Take 300 mg by mouth two times a day. 1999 - LORazepam (ATIVAN) 2 mg tab TAKE ONE TABLET BY MOUTH 3 TIMES DAILY ATIVAN - MUCUS RELIEF ER 600 mg 12 hr tablet Take 600 mg by mouth twice daily. - naltrexone (TREXAN) 50 mg tablet Take 50 mg by mouth two times a day. - OYSTER SHELL CALCIUM-VITAMIN D 500 mg-5 mcg (200 unit) per tablet Take 1 tablet by mouth twice daily. - polyethylene glycol 3350 (MIRALAX, GLYCOLAX) 17 gram/dose powder Take 17 g by mouth once daily. - Sennosides 8.6 mg cap Take 8.6 mg by mouth as needed. - risperiDONE (RISPERDAL) 3 mg tablet Take 3 mg by mouth two times a day. 1999 - sertraline (ZOLOFT) 100 mg tablet Take 50 mg by mouth once daily. Take with 50 mg zoloft in the morning. 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 Anesthesia Post Evaluation Level of consciousness: arousable Pain management: adequate Hydration status: normal Respiratory status: Patient breathing comfortable with supplemental oxygen Cardiovascular status: stable ANESTHESIA NOTABLE EVENTS: No notable events documented. Normal [facility] Anesthesia Preprocedure Eval uationon 12-28-2023 Financial Sales Manager Authentication Interface Message Text ASA: 3 NPO status: Greater than 8 hours Past Medical History and Review of Systems Pulmonary - negative ROS Dental Comment: Caries Endo (+) hypothyroidism Neuro/Psych (+) bipolar disorder, seizures, intellectual disability Comment: Autistic disorder Cardiovascular Comment: Bradycardia GI/Hepatic/Renal Comment: S/P Laparotomy for bowel obstructopn in October, Heme/Other - negative ROS Physical Exam Airway Mallampati: unable to assess TM distance: Adequate Micrognathia: Not present Neck flexion: Adequate Dental PE (+) missing teeth Pulmonary - pulmonary exam normal Comment: Chest clear to auscultation bilaterally Cardiovascular - cardiovascular exam normal Comment: RRR with S1S2; no murmurs, gallops, or rubs Neuro - neurological exam normal Comment: Awake, alert, oriented, No motor deficits and sensation grossly intact Plan Anesthesia plan: general; (ETT) Anesthesia risks / alternatives discussed pre-op Questions answered / anesthesia plan accepted Past medical history, surgical history, allergies, and medications reviewed. Pertinent laboratory tests, EKG, imaging, and consults reviewed and I have personally seen and evaluated the patient, repeating knox portions of the history and physical examination. Attestation: MHPATFORM Normal [facility] Anesthesia Transfer Of Careo n 12-28-2023 Financial Sales Manager Authentication Interface Message Text Patient taken to PACU. Patient was drowsy, comfortable, and stable on arrival. Anesthesia Transfer of Care Note Past Medical History: No past medical history on file. Sleep Apnea/Positive STOP-BANG: No Problem List: Patient Active Problem List: Dental caries [K02.9] Autistic disorder (HCC) [F84.0] Bipolar disorder (HCC) [F31.9] Hypothyroidism [E03.9] Moderate intellectual disability [F71] Obsessive-compulsive disorder [F42.9] Mucocele of lower lip [K13.0] Chronic constipation [K59.09] Skin eruption [R21] Dental decay [K02.9] Epileptic seizure (HCC) [G40.909] Sinus bradycardia [R00.1] Past Surgical History: Review of patient's past surgical history indicates: DENTAL RESTORATIONS (06/13/2018) Procedure: DENTAL RESTORATIONS, extraction; Surgeon: Lyndsay Zuluaga DDS; Location: [facility]; Service: Dental DENTAL RESTORATIONS (02/03/2021) Procedure: DENTAL RESTORATIONS; Surgeon: Harpreet Mccurdy DDS; Location: [facility] [place]; Service: Dental Allergies: Biaxin [clarithromycin] Basic Operating Room Facts: Surgeon(s): Mari Yi DMD Anesthesiologist: Linda Saldivar MD CUSTOMER SERVICE ASSOCIATE: Selena Camacho APRN-CRNA DENTAL RESTORATIONS (Bilateral: Mouth) EXTRACTION, TOOTH (Bilateral: Mouth) Intraoperative Events: No acute event ASA: 3 EBL: 10 mL Urine Not documented Lactated Ringers and NaCl 0.9%: Fluid Totals (Filter: LR and NaCl 0.9% Medications Shown) Medication Calculated Total Lactated Ringers 1,000 mL / 1 bag NaCl 0.9% 0 mL / 1 bag Cell Saver: Not documented Blood Volume Values: Blood Products None MTP Blood: MTP PRBC: Not documented MTP FFP: Not documented MTP PLT: Not documented MTP Cryo: Not documented MTP Whole Blood: Not documented Current Vasoactive Medications: {Vasoactive Medications: None Lines, Drains, Airways Peripheral IV Access: 12/28/23 0935 20 gauge Right Antecubital (Active) Site Assessment WNL;Dressing intact 12/28/23 0935 Infusion Status Port #1 Infusing;Patent 12/28/23 0935 Airway Insertion Details [REMOVED] Advanced Airway: ETT, Nasal #7 (Removed) 12/28/23 1033 Pre-Oxygenation/ Induction: Mask Rapid Sequence Induction?: Mask Ventilation: Easy;w/nasal airway Blade Type: Mac Blade Size: 4 Visualization: Grade 1 Airway Type: ETT, Nasal Airway Size: #7 Post Insertion Assessment: Confirmation: Equal bilateral breath sounds, CO2 confirmed # Attempts >1: Special Equipment: Present on Admission?: Previously Removed / Not Present: Removal Reason: Not Removed at Discharge: Removed 12/28/23 1350 Location (cm) 28 12/28/23 1033 Measured from: Naris 12/28/23 1033 Secured via: Sutured 12/28/23 1033 Site Assessment WNL 12/28/23 1033 All non-working IVs have been removed: N/A Laboratory Data: CBC (last 3 years, up to 5 values) WBC RBC Hgb Hct MCV RDW Plt 07/16/23 0917 8.6 4.59 12.6 38.4 84 14.2 -- Comment: Platelet cannot be quantified due to the presence of platelet clumps. Platelet estimate appears normal. Basic Metabolic Panel (Last 5 results in the past 3 years) Na K Cl CO2 Gap Glu BUN Cr Ca 12/19/23 1133 139 4.6 106 25 13 115 15 0.93 9.9 11/07/23 0418 141 110 21 91 Comment: The [place] Diabetes Association (ADA) provides guidance for cutoff values for fasting glucose and random glucose. The ADA defines fasting as no caloric intake for at least 8 hours. Fasting plasma glucose results between 100 to 125 mg/dL indicate increased risk for diabetes (prediabetes). Fasting plasma glucose results greater than or equal to 126 mg/dL meet the criteria for diagnosis of diabetes. In the absence of unequivocal hyperglycemia, results should be confirmed by repeat testing. In a patient with classic symptoms of hyperglycemia or hyperglycemic crisis, random plasma glucose results greater than or equal to 200 mg/dL meet the criteria for diagnosis of diabetes. Reference: Standards of Medical Care in Diabetes 2016, [place] Diabetes Association. Diabetes Care. 2016.39(Suppl 1). 8 0.70 8.2 11/06/23 0943 146 112 18 83 Comment: The [place] Diabetes Association (ADA) provides guidance for cutoff values for fasting glucose and random glucose. The ADA defines fasting as no caloric intake for at least 8 hours. Fasting plasma glucose results between 100 to 125 mg/dL indicate increased risk for diabetes (prediabetes). Fasting plasma glucose results greater than or equal to 126 mg/dL meet the criteria for diagnosis of diabetes. In the absence of unequivocal hyperglycemia, results should be confirmed by repeat testing. In a patient with classic symptoms of hyperglycemia or hyperglycemic crisis, random plasma glucose results greater than or equal to 200 mg/dL meet the criteria for diagnosis of diabetes. Reference: Standards of Medical Care in Diabetes 2016, [place] Diabetes Association. Diabetes Care. 2016.39(Suppl 1). 6 0.69 8 (more content not included)... Normal [facility] Blood Attestationon 12-28-19 Financial Sales Manager Authentication Interface Message Text Blood Attestation: ATTESTATION OF INFORMED CONSENT FOR BLOOD: The transfusion of blood and/or blood components were discussed with the patient and/or legal investment representative. The risks, benefits and alternatives were reviewed. Questions regarding blood transfusions were answered. The patient /or the patient's legal investment representative agree with the plan for transfusion of blood and/or blood components. Normal [facility] Brief Operative Noteon 12-27 Financial Sales Manager Authentication Interface Message Text Brief Operative Note PHE OR 3 Johnny Devine 33 year old male Surgical Contact Serial Number: [id number] Preoperative Diagnosis: Pre-op Diagnosis * Caries [K02.9] Moderate intellectual disability [F79] Postoperative Diagnosis: Moderate intellectual disability [F79] Procedures: Comprehensive exam [51770] Full mouth X-ray [ 62914] Extractions [39856] Restorations [61618] Prophy 12255] Fluoride treatment [36761] Surgeon(s): Surgeon(s): Mari Yi DMD Staff: Lead Manufacturing Engineering Tech Nurse: Henrietta Johnson Anesthesia: General Anesthesia Staff: Selena Camacho APRN-CRNA Specimen(s): * No specimens in log * Estimated Blood Loss: 5-10 cc Lines/Drains: Peripheral IV Access: 12/28/23934 20 gauge Right Antecubital (Active) Site Assessment WNL;Dressing intact 12/28/23934 Infusion Status Port #1 Infusing;Patent 12/28/23934 Temporarily Retained Foreign Object: Yes Location: Oropharynx Object: Throat pack Anticipated removal date: End of the surgery Findings: Normal Complications: None Status at end of surgery: Stable Activity: weight bearing as tolerated and Surgical wound class: Yes, wound was clean contaminated. Patient Class: Outpatient Surgery. Is this a patient scheduled as an outpatient that needs to be admitted as an inpatient? No, Clinical indication for admission: Dr. Mari Yi DMD was present in the OR for the critical portion of the procedure and procedure sign-out. Signed by Reema Whiting DDS 12/28/2023 1;48 pm Normal [facility] OP Noteon 12-28-2023 Financial Sales Manager Authentication Interface Message Text Surgical Case Number Data Unavailable Operating Room Data Unavailable Preoperative Diagnosis(es): Pre-op Diagnosis * Caries [K02.9] Moderate intellectual disability [F79] Postoperative Diagnosis(es): Moderate intellectual disability[F79] @ENCORD@ Surgeon: Dr. Mari Yi DMD Vocational Trainer Surgeon: Reema Whiting DDS Anesthesia: General- Nasal ETT Estimated Blood Loss: 10-20 cc IV Fluids: 1200 cc Urine Output: Not measured. Findings: The patient was brought to the operating room and placed in the supine position on the operating room table. Following satisfactory induction of GA, the patient was intubated with a nasal endotracheal tube. He was then prepped and drapped in the usual sterile fashion for dental procedures. A full mouth series was then taken and an oral examination was completed. A moistened throat pack was then placed. The radiographs were examined by the attending and the resident and used in conjunction with the oral exam to formulate a treatment plan. The restorative aspect of the treatment plan included the following Amalgam restorations: #2-B(V), 18-B(V), 19-B, 20-B, 21-B(V), 30-B, 31-OB Composite restorations: #9 F(V), 11-M, 23-DF AND MFL, 24-DFL These restorations were placed following excavation of the carious lesions on each tooth. The surgical aspect of the treatment plan included the following extraction(s) and/or root removal: Teeth #1, #16, and #17. Gel foam and a 3.0 chromic gut suture was placed at extraction site #17 only. The remaining dentition was then polished with prophy paste. The oral cavity was irrigated and suctioned, then the throat pack was removed. Fluoride treatment was placed on the remaining dentition. The patient tolerated the procedure well, was extubated in the operating room, and taken to the PACU in stable condition. Complications: None Status at end of surgery: Stable Medications: Outpatient Medications Marked as Taking for the 12/28/23 encounter (Hospital Encounter) Medication Sig Dispense Refill POLYETHYLENE GLYCOL EXTERNAL Take 17 g by mouth daily. montelukast (SINGULAIR) 10 MG tablet Take 10 mg by mouth daily. bisacodyl (DULCOLAX) 10 MG suppository Insert 10 mg in the rectum daily. naloxone 4 mg/0.1 mL nasal liquid Use 1 [place] in one nostril (alternate sides) as needed for Drug Overdose for up to 1 dose. Every 2-3 mins. until help arrives. 2 Each 1 divalproex (DEPAKOTE SPRINKLE) 125 MG CSDR capsule 125 mg 2 times daily. GuanFACINE HCl (TENEX) 4 MG er tablet atorvastatin (LIPITOR) 10 MG tablet Mucus Relief 600 MG SR tablet Take 600 mg by mouth 2 times daily. Calcium Carbonate-Vitamin D (Oyster Shell Calcium/D) 500-200 MG-UNIT TABS Take 1 Tablet by mouth 2 times daily. Linzess 290 MCG CAPS capsule FLUTICASONE PROPIONATE [...] tablet Take 50 mg by mouth daily. Dictated by: Reema Whiting DDS: Dr. Mari Yi DMD was present for the critical portions of the procedure. Reema Whiting DDS 12/28/2023 1:53 pm Normal [facility] Progress Noteson 12-28-2023 Financial Sales Manager Authentication Interface Message Text Patient takes his seizure medication with pudding, facility held them today for dental surgery. Caregiver brought capsules with them to pre-op. Per Dr. Saldivar, divalproex 125 mg x 4 capsules (500 mg) were opened and sprinkles given to patient with 50 mL of water in pre-op. 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 MB cusp tip was visualized upon extraction of #17, but well encased in bone and would not be exposed to the oral cavity following healing of the extraction site. Preoperative Diagnosis(es): Pre-op Diagnosis * Caries [K02.9] Moderate intellectual disability [F79] Postoperative Diagnosis(es): Moderate intellectual disability[F79] Surgeon: Dr. Mari Yi DMD Vocational Trainer Surgeon: Reema Whiting DDS Anesthesia: General- Nasal ETT Estimated Blood Loss: 10-20 cc IV Fluids: 1200 cc Urine Output: Not measured. Findings: The patient was brought to the operating room and placed in the supine position on the operating room table. Following satisfactory induction of GA, the patient was intubated with a nasal endotracheal tube. He was then prepped and drapped in the usual sterile fashion for dental procedures. A full mouth series was then taken and an oral examination was completed. A moistened throat pack was then placed. The radiographs were examined by the attending and the resident and used in conjunction with the oral exam to formulate a treatment plan. The restorative aspect of the treatment plan included the following Amalgam restorations: #2-B(V), 18-B(V), 19-B, 20-B, 21-B(V), 30-B, 31-OB Composite restorations: #9 F(V), 11-M, 23-DF AND MFL, 24-DFL These restorations were placed following excavation of the carious lesions on each tooth. The surgical aspect of the treatment plan included the following extraction(s) and/or root removal: Teeth #1, #16, and #17. Gel foam and a 3.0 chromic gut suture was placed at extraction site #17 only. The remaining dentition was then polished with prophy paste. The oral cavity was irrigated and suctioned, then the throat pack was removed. Fluoride treatment was placed on the remaining dentition. The patient tolerated the procedure well, was extubated in the operating room, and taken to the PACU in stable condition. Complications: None Status at end of surgery: Stable Normal [facility] CHRISTINA Delgado Financial Sales Manager Authentication Interface Message Text Addendum 12/21/2023- Caregiver @ [facility] called to relay that patient unable to take medications without pudding. Per Dr. Newell: Instruct them to take the meds at night. Please then coordinate with either the anesthesia team or surgical team to order IV depacon so he can get his depakote. I would have the facility bring his oral depakote for after surgery If they can't get the depacon at [place] CHRISTINA RN updated nursing staff @ [facility]. Normal [facility] BASIC METABOLIC PANELon 05-0 Anion gap [Moles/Vol] 13 mmol/L Normal 10-20 [facility] Comment on above: Performed By: #### C H8 #### [facility] [address], [place], Calcium [Mass/Vol] 9.9 mg/dL Normal 8.6-10.3 [facility] Comment on above: Performed By: #### C H8 #### [facility] [address], [place], Chloride [Moles/Vol] 106 mmol/L Normal 98-107 [facility] Comment on above: Performed By: #### C H8 #### [facility] [address], [place], CO2 [Moles/Vol] 25 mmol/L Normal 21-31 [facility] Comment on above: Performed By: #### C H8 #### [facility] [address], [place], Creatinine [Mass/Vol] 0.93 mg/dL Normal 0.70-1.30 [facility] Comment on above: Performed By: #### C H8 #### [facility] [address], [place], ESTIMATED GFR (CKD-EPI) 113 mL/min/1.73sqm Normal >=60 [facility] Comment on above: Result Comment: 2020 [...] Inclusion of Race in Diagnosing Kidney Disease. [place] Journal of Kidney Diseases 2021;79(2):268-88.e1. 2. N Engl J Med 2020 Vol. 385 Issue 19 Pages 7511-7563 Performed By: #### C H8 #### [facility] [address], [place], Glucose [Mass/Vol] 115 mg/dL High 74-109 [facility] Comment on above: Performed By: #### C H8 #### [facility] [address], [place], Potassium [Moles/Vol] 4.6 mmol/L Normal 3.5-5.0 [facility] Comment on above: Performed By: #### C H8 #### [facility] [address], [place], Sodium [Moles/Vol] 139 mmol/L Normal 136-145 [facility] Comment on above: Performed By: #### C H8 #### [facility] [address], [place], Urea nitrogen [Mass/Vol] 15 mg/dL Normal 7-25 [facility] Comment on above: Performed By: #### C H8 #### [facility] [address], [place], Basic metabolic 2000 panelon 12-19-2023 Anion gap [Moles/Vol] 13 mmol/L 10 - 20 [facility] Calcium [Mass/Vol] 9.9 mg/dL 8.6 - 10. 3 mg/dL [facility] Chloride [Moles/Vol] 106 mmol/L 98 - 10 7 mmol/L [facility] CO2 [Moles/Vol] 25 mmol/L 21 - 31 mmol/L [facility] Creatinine [Mass/Vol] 0.93 mg/dL 0.70 - 1.30 mg/dL [facility] GFR/1.73 sq M.predicted CKD-EPI (S/P/Bld) [Vol rate/Area] 113 - PINF [facility] Comment on above: 2020 [...] Inclusion of Race in Diagnosing Kidney Disease. [place] Journal of Kidney Diseases 2021;79(2):268-88.e1. 2. N Engl J Med 2020 Vol. 385 Issue 19 Pages 2939-3718 Glucose [Mass/Vol] 115 mg/dL High 74 - 109 mg/dL [facility] Interpretation and review of laboratory results Abnormal [facility] Potassium [Moles/Vol] 4.6 mmol/L 3.5 - 5.0 mmol/L [facility] Sodium [Moles/Vol] 139 mmol/L 136 - 145 mmol/L [facility] Urea nitrogen [Mass/Vol] 15 mg/dL 7 - 25 mg/dL [facility] PAT Appt H AND Ross 4 Financial Sales Manager Authentication Interface Message Text Patient was identified by name and date of . Jaswinder Arredondo Patient at risk for falls:No Falls Risk protocol implemented: N/A Normal [facility] Patient Instructionson 12-18 Financial Sales Manager Authentication Interface Message Text [facility] staff: Since patient is unable to take medications without pudding: Please hold all morning medications on the day of the dental procedure. Be sure to give all routine medications the evening before surgery per usual routine. Please bring patient's depakote to the surgery center on the day of surgery in case anesthesia wants to administer it AFTER the surgery. You will receive a call the day before surgery between 10 am and 3 pm notifying you what time to arrive for surgery. Do not take any Aspirin products 7 days before surgery. Do not take Ibuprofen, Aleve, Advil, Motrin or any other NSAIDS (celebrex, meloxicam, naproxen, diclofenac) 3 days before surgery. May take over the counter Acetaminophen (Tylenol) as needed for pain. Please hold all Vitamin E, Kamas 3, fish oil and herbal supplements for 1 week prior to surgery. Please use this LIST to prepare for your surgery/procedure: ? Assume that any lab or testing done during your Pre-admission testing appointment is within normal limits unless otherwise contacted. ? Expect a call from [facility] one business day prior to surgery for surgery arrival time and location. ? Please plan to restart your medications the day after surgery unless otherwise explicitly instructed. ? Please contact your surgeon's/procedurali st's office for any surgical or recovery types of questions. ? CANCELLING YOUR SURGERY/PROCEDURE: If you get a cold, are not feeling well, or become , please call your surgeon's office as soon as possible. ? Refer to your Preparing for Your Surgery/Procedure booklet or [email or web address] if you have questions. Contact the Pre-Admission Testing department at [phone] or your surgeon's office with any questions that are not answered. ? Eating and drinking before surgery: Adult Patients: No solid food after midnight night before surgery May have clear liquids up to 2 hours before surgery check in time ( water ) Enhanced Recovery After Surgery (ERAS), bariatric, and endoscopy/colonoscopy patients should follow their surgeon's/procedurali st's instructions for clear fluids prior to surgery. ON THE DAY OF SURGERY: ? DO bring your ID, insurance card, medication list, and a small amount of post for filling prescriptions and any medical co-pays. ? DO bring glasses if you wear contacts and other assistance items such as oxygen, inhaler, cane, walker, etc. ? Do NOT bring valuables, credit cards, or large amounts of post. ? Do NOT wear lotion or strong-smelling fragrance (perfume, cologne, cream or lotion). ? Do NOT wear any jewelry, (including rings, earrings, or mouth, tongue, or body piercings). Metal jewelry could cause constriction, amputation, or sosa. Loose or bulky things in your mouth can be unsafe and result in breathing problems. ? ARRANGE FOR A RIDE: If you are scheduled to go home the same day of surgery, a responsible adult MUST drive or accompany you home in a car, cab, shared ride service, or [facility]. You will not be allowed to drive yourself home or travel home alone. Your surgery may be cancelled if you do not have a ride. A responsible adult must stay with you after surgery. Please call [employer] if you need transportation assistance or have concerns about going home [phone]. ? SLEEP APNEA PATIENTS: Bring your sleep apnea machine and mask. ? PLEASE BE ON TIME. A late arrival may result in the cancellation/ delay of your surgery. Thank you for choosing [facility]; it is our pleasure to care for you Normal [facility] 12[facility]2023 [facility] Office Visit ([facility] ) JOHNNY DEVINE ([id number]) 1990 M Date Time Provider Department 12/03/23 1:00 PM OSCAR RUIZ During your visit today, we recorded the following information about you: Pulse Blood pressure Weight Height 71/minute 111/76 92.5 kg 1.676 m Oscar Ruiz MD 12/03/2023 1:58 PM Signed I had the pleasure of seeing this 33-year-old gentleman in follow-up following a dorsal slit procedure performed emergently for 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 The surgery was performed a month ago. He was seen accompanied by his caregiver. His caregiver reports that he has no issues voiding. On examination, the dorsal foot suture line is healing well with no concerns. The foreskin is fully retractable now. 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 PLAN: No concerns following dorsal slit procedure. The patient will be discharged from ongoing urologic care. Oscar Ruiz MD Referring Provider: SELF [200] Allergies As of Date: 12/03/2023 Noted Allergy Reaction BIAXIN (CLARITHROMYCIN) 05/04/2022 14 - Other: See Comments Comments: caregiver does not know Date Reviewed: 12/03/2023 Reviewed by: Sukhdeep [facility] - Fully Assessed Primary Visit Diagnosis:Phimosis [N47.1] Prescriptions as of 12/03/2023 - cloNIDine HCl (CATAPRES) 0.2 mg tablet Take 1 tablet by mouth three times a day. 0800, 1600, 1999 Please check blood pressure prior to administration and hold for systolic blood pressure < 100 - bisacodyl (DULCOLAX) 10 mg supp 1 Suppository by RECTAL route once daily. - QUEtiapine (SEROQUEL) 100 mg tablet Take 1 tablet by mouth two times a day. - divalproex DR (DEPAKOTE) 125 mg EC tablet Take 125 mg by mouth two times a day. 0200, 1999 - loratadine 10 mg cap Take 10 mg by mouth daily at bedtime. - montelukast (SINGULAIR) 10 mg tablet Take 10 mg by mouth daily at bedtime. - denosumab (PROLIA) 60 mg/mL Inject 60 mg subcutaneously one time only. - sertraline (ZOLOFT) 50 mg tablet Take 50 mg by mouth once daily. Take with 100mg zoloft in the morning - atorvastatin (LIPITOR) 10 mg tablet - clomiPRAMINE (ANAFRANIL) 75 mg capsule - famotidine (PEPCID) 20 mg tablet - fluticasone (FLONASE) 50 mcg/actuation nasal spray INSTILL 2 SPRAYS PER NOSTRIL EVERY MORNING FOR SINUS CONGESTION - guanFACINE (INTUNIV ER) 4 mg Tb24 Take 4 mg by mouth once daily. - levothyroxine (SYNTHROID) 112 mcg tablet Take 112 mcg by mouth once daily. - LINZESS 290 mcg capsule Take 290 mcg by mouth once daily. - lithium carbonate (ESKALITH) 300 mg capsule Take 300 mg by mouth two times a day. 1999 - LORazepam (ATIVAN) 2 mg tab TAKE ONE TABLET BY MOUTH 3 TIMES DAILY ATIVAN - MUCUS RELIEF ER 600 mg 12 hr tablet Take 600 mg by mouth twice daily. - naltrexone (TREXAN) 50 mg tablet Take 50 mg by mouth two times a day. - OYSTER SHELL CALCIUM-VITAMIN D 500 mg-5 mcg (200 unit) per tablet Take 1 tablet by mouth twice daily. - polyethylene glycol 3350 (MIRALAX, GLYCOLAX) 17 gram/dose powder Take 17 g by mouth once daily. - Sennosides 8.6 mg cap Take 8.6 mg by mouth as needed. - risperiDONE (RISPERDAL) 3 mg tablet Take 3 mg by mouth two times a day. 1999 - sertraline (ZOLOFT) 100 mg tablet Take 50 mg by mouth once daily. Take with 50 mg zoloft in the morning. Problem List As Of Date 12/03/2023 Noted Resolved SBO (small bowel obstruction) ([facility]) [K56.609] 10/28/2023 10/31/2023 Bipolar disorder (HCC) [F31.9] 09/16/2018 Hypothyroidism [E03.9] 09/16/2018 Obsessive-compulsive disorder [F42.9] 09/16/2018 Moderate intellectual disability [F71] 09/16/2018 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] Obesity, Class I, BMI 30-34.9 [E66.9] 11/02/2023 S/P laparoscopy [Z98.890] 11/05/2023 Acute postoperative pain [G89.18] 11/05/2023 Oropharyngeal dysphagia [R13.12] 11/06/2023 Epilepsy (HCC) [G40.909] 11/06/2023 Level of Service: OFFICE/OUTPATIENT EST PT MAY NOT REQ PHYS/QHP [17962] LOS History for Encounter Encounter Status:Closed by CHEOUDI, ALI WILLIAM on 12/03/23 Normal [facility] CNOVon 11-28-2023 CNOV Office Visit (CORTEZ ) NILSONJOHNNY TERRY ([id number]) 1990 M Date Time Provider Department 11/28/23 10:00 AM VICTORIA SANCHEZ During your visit today, we recorded the following information about you: Temperature Pulse Blood pressure Weight 97.5 degrees 83/minute 134/66 87.5 kg Height 1.676 m Ghada Farr MA 11/28/2023 9:52 AM Signed What is the reason for your visit today? Post op Who is your referring physician? Dr. Sanchez Are you having poor oral intake? NO Have you had unintentional weight loss of 15 lbs/7 Kg in the last 3-6 months? NO Bowels: regular Wound: clean AND dry Temperature: No Drains: No Victoria Sanchez APRN.CNP 11/28/2023 10:19 AM Signed [facility] Clinic Date: November 28, 2023 Johnny Devine 33 year old male CHIEF COMPLAINT: Patient presents for follow up from surgery. HPI: Here for follow up after diagnostic laparotomy on 10/29/[address] Robin. Patient also underwent a dorsal slit procedure with urology on 10/30/2023 for paraphimosis. Patient with a slate cutter today to discuss his postoperative course since patient is nonverbal. Pain: No non=verbal cues indicating pain. No pain medication Incisional Drainage: Denies Incisional Erythema: Denies Fever/Chills: Denies Increased Heart Rate: Denies Constipation: Having a bowel movement daily. Using suppository at facility Diarrhea: Denies Nausea/Vomiting: Deneis Difficulty Voiding: Denies, to see urology next Sunday. Decreased Urine Output: Denies Shortness of Breath: Denies Cough / Wheezing: Denies Calf/Thigh pain or swelling: Denies Current Diet: Regular diet Present Activity level: Walking, all daily activities Current Medications: Current Outpatient Medications Medication Sig Dispense Refill cloNIDine HCl (CATAPRES) 0.2 mg tablet Take 1 tablet by mouth three times a day. 0800, 1600, 1999 Please check blood pressure prior to administration and hold for systolic blood pressure < 100 bisacodyl (DULCOLAX) 10 mg supp 1 Suppository by RECTAL route once daily. 30 Each 0 QUEtiapine (SEROQUEL) 100 mg tablet Take 1 tablet by mouth two times a day. [address] (DEPAKOTE) 125 mg EC tablet Take 125 mg by mouth two times a day. 1999 loratadine 10 mg cap Take 10 mg by mouth daily at bedtime. montelukast (SINGULAIR) 10 mg tablet Take 10 mg by mouth daily at bedtime. denosumab (PROLIA) 60 mg/mL Inject 60 mg subcutaneously one time only. sertraline (ZOLOFT) 50 mg tablet Take 50 mg by mouth once daily. Take with 100mg zoloft in the morning atorvastatin (LIPITOR) 10 mg tablet clomiPRAMINE (ANAFRANIL) 75 mg capsule (Patient not taking: Reported on 10/28/2023) famotidine (PEPCID) 20 mg tablet fluticasone (FLONASE) 50 mcg/actuation nasal spray INSTILL 2 SPRAYS PER NOSTRIL EVERY MORNING FOR SINUS CONGESTION guanFACINE (INTUNIV ER) 4 mg Tb24 Take 4 mg by mouth once daily. levothyroxine (SYNTHROID) 112 mcg tablet Take 112 mcg by mouth once daily. LINZESS 290 mcg capsule Take 290 mcg by mouth once daily. lithium carbonate (ESKALITH) 300 mg capsule Take 300 mg by mouth two times a day. 1999 LORazepam (ATIVAN) 2 mg tab TAKE ONE TABLET BY MOUTH 3 TIMES DAILY ATIVAN MUCUS RELIEF ER 600 mg 12 hr tablet Take 600 mg by mouth twice daily. naltrexone (TREXAN) 50 mg tablet Take 50 mg by mouth two times a day. OYSTER SHELL CALCIUM-VITAMIN D 500 mg-5 mcg (200 unit) per tablet Take 1 tablet by mouth twice daily. polyethylene glycol 3350 (MIRALAX, GLYCOLAX) 17 gram/dose powder Take 17 g by mouth once daily. Sennosides 8.6 mg cap Take 8.6 mg by mouth as needed. risperiDONE (RISPERDAL) 3 mg tablet Take 3 mg by mouth two times a day. 799, 1999 sertraline (ZOLOFT) 100 mg tablet Take 50 mg by mouth once daily. Take with 50 mg zoloft in the morning. No current facility-administered medications for this visit. REVIEW OF SYSTEMS: CONSTITUTIONAL: Patient denies fevers, chills, sweats CARDIOVASCULAR: Patient denies chest pains, palpitations RESPIRATORY: No dyspnea on exertion, no wheezing or cough. GI: No diarrhea. No constipation. No nausea/vomiting. MUSCULOSKELETAL: No new myalgias or arthralgias. DERMATOLOGIC: Patient denies any rashes or skin changes. PHYSICAL EXAM: BP 134/66 Pulse 83 Temp 36.4 ?C (97.5 ?F) (Temporal) Ht 167.6 cm (5' 6 ) Wt 87.5 kg (193 lb) BMI 31.15 kg/m? GENERAL: No apparent distress. Pt is alert and oriented x3. LUNGS: Lungs clear and equal. No wheezing HEART: Regular rate and rhythm without murmur. No leg edema ABDOMEN: Soft, nontender, and nondistended. Positive bowel sounds. EXTREMITIES: Without any cyanosis, clubbing, rash, lesions or edema. INCISIONS: Well-healed lap scars. No s/s of infection. SURGICAL PATHOLOGY: N/A ASSESSMENT/PLAN: 1. Postoperative visit - ICD9: V58.49, ICD10: Z48.89 (more content not included)... Normal [facility] Lara 11-12-2023 SARAH Telephone (PATRICK) JOHNNY DEVINE ([id number]) 1990 [place] Date Time Provider Department 11/12/23 CRIS DINH During your visit today, we recorded the following information about you: Cris Dinh, RN 11/12/2023 10:56 AM Signed Called care facility and spoke to Rosy. Patient is scheduled to see their PCP tomorrow and Rosy will let us know after that if patient truly needs to be seen in clinic 11/22/[address] Fairbanks. If patient feeling well appt can be cancelled and pt just follow up with Dr. Robin. Included point ppl on communication (Leslye and Carlita) along with Katherine as she will be covering Dr. Fairbanks clinic 11/22/2023. No further needs at present time. Office line given. Cris Dinh RN Allergies As of Date: 11/12/2023 Noted Allergy Reaction BIAXIN (CLARITHROMYCIN) 05/04/2022 14 - Other: See Comments Comments: caregiver does not know Date Reviewed: 11/07/2023 Reviewed by: Alexandra Chairez MD - Fully Assessed Reason for Visit: Sweatband Perforator - Other [3602] Prescriptions as of 11/12/2023 - cloNIDine HCl (CATAPRES) 0.2 mg tablet Take 1 tablet by mouth three times a day. 0800, 1600, 2000 Please check blood pressure prior to administration and hold for systolic blood pressure < 100 - bisacodyl (DULCOLAX) 10 mg supp 1 Suppository by RECTAL route once daily. - QUEtiapine (SEROQUEL) 100 mg tablet Take 1 tablet by mouth two times a day. - divalproex DR (DEPAKOTE) 125 mg EC tablet Take 125 mg by mouth two times a day. 0200, 1999 - loratadine 10 mg cap Take 10 mg by mouth daily at bedtime. - montelukast (SINGULAIR) 10 mg tablet Take 10 mg by mouth daily at bedtime. - denosumab (PROLIA) 60 mg/mL Inject 60 mg subcutaneously one time only. - sertraline (ZOLOFT) 50 mg tablet Take 50 mg by mouth once daily. Take with 100mg zoloft in the morning - atorvastatin (LIPITOR) 10 mg tablet - clomiPRAMINE (ANAFRANIL) 75 mg capsule - famotidine (PEPCID) 20 mg tablet - fluticasone (FLONASE) 50 mcg/actuation nasal spray INSTILL 2 SPRAYS PER NOSTRIL EVERY MORNING FOR SINUS CONGESTION - guanFACINE (INTUNIV ER) 4 mg Tb24 Take 4 mg by mouth once daily. - levothyroxine (SYNTHROID) 112 mcg tablet Take 112 mcg by mouth once daily. - LINZESS 290 mcg capsule Take 290 mcg by mouth once daily. - lithium carbonate (ESKALITH) 300 mg capsule Take 300 mg by mouth two times a day. 1999 - LORazepam (ATIVAN) 2 mg tab TAKE ONE TABLET BY MOUTH 3 TIMES DAILY ATIVAN - MUCUS RELIEF ER 600 mg 12 hr tablet Take 600 mg by mouth twice daily. - naltrexone (TREXAN) 50 mg tablet Take 50 mg by mouth two times a day. - OYSTER SHELL CALCIUM-VITAMIN D 500 mg-5 mcg (200 unit) per tablet Take 1 tablet by mouth twice daily. - polyethylene glycol 3350 (MIRALAX, GLYCOLAX) 17 gram/dose powder Take 17 g by mouth once daily. - Sennosides 8.6 mg cap Take 8.6 mg by mouth as needed. - risperiDONE (RISPERDAL) 3 mg tablet Take 3 mg by mouth two times a day. 1999 - sertraline (ZOLOFT) 100 mg tablet Take 50 mg by mouth once daily. Take with 50 mg zoloft in the morning. 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] Obesity, Class I, BMI 30-34.9 [E66.9] 11/02/2023 S/P laparoscopy [Z98.890] 11/05/2023 Acute postoperative pain [G89.18] 11/05/2023 Oropharyngeal dysphagia [R13.12] 11/06/2023 Epilepsy (HCC) [G40.909] 11/06/2023 Encounter Status:Closed by CRIS DINH on 11/12/23 Normal [facility] Basic metabolic 2000 panelon 11-07-2023 Anion gap [Moles/Vol] 10 mmol/L Normal 9-18 [facility] Comment on above: Order Comment: Speci men Type: BLOOD SPECIMEN Ordering Facility: [facility] Address: [address] [place] [address] Performed By: #### 2 4321-2, , 2776-08 #### [facility] CLIA [id number] [address] [place] [address] [place] Calcium [Mass/Vol] 8.2 mg/dL Low 8.5-10.2 [facility] Comment on above: Order Comment: Speci men Type: BLOOD SPECIMEN Ordering Facility: [facility] Address: [address] [place] [address] Performed By: #### 2 4321-2, , 2776-08 #### [facility] CLIA [id number] [address] [place] [address] [place] Chloride [Moles/Vol] 110 mmol/L High 97-105 [facility] Comment on above: Order Comment: Speci men Type: BLOOD SPECIMEN Ordering Facility: [facility] Address: [address] [place] [address] Performed By: #### 2 4321-2, , 2776-08 #### [facility] CLIA [id number] [address] [place] [address] [place] CO2 [Moles/Vol] 21 mmol/L Low 22-30 [facility] Comment on above: Order Comment: Speci men Type: BLOOD SPECIMEN Ordering Facility: [facility] Address: [address] [place] [address] Performed By: #### 2 4321-2, , 2776-08 #### [facility] CLIA [id number] [address] [place], [place] [address] [place] Creatinine [Mass/Vol] 0.70 mg/dL Low 0.73-1.22 [facility] Comment on above: Order Comment: Sana zuñiga Type: BLOOD SPECIMEN Ordering Facility: [facility] Address: [address] [place] [address] Performed By: #### 2 4321-2, , 2776-08 #### [facility] CLIA [id number] [address] [place] [address] [place] Creatinine and Glomerular filtration rate.predicted panel (S/P/Bld) 126 mL/min/1.73m??? Normal >=60 [facility] Comment on above: Order Comment: Sana zuñiga Type: BLOOD SPECIMEN Ordering Facility: [facility] Address: [address] [place] [address] Result Comment: Lor mated Glomerular Filtration Rate (eGFR) is calculated using the 2020 CKD-EPI creatinine equation. This equation utilizes serum creatinine, sex, and age as parameters. The creatinine assay has traceable calibration to isotope dilution-mass spectrometry. Refer to KDIGO guidelines for clinical interpretation. In patients with unstable renal function, e.g. those with acute kidney injury, the eGFR may not accurately reflect actual GFR. Performed By: #### 2 4321-2, , 2776-08 #### [facility] CLIA [id number] [address] [place] [address] [place] Glucose [Mass/Vol] 91 mg/dL Normal 74-99 [facility] Comment on above: Order Comment: Sana zuñiga Type: BLOOD SPECIMEN Ordering Facility: [facility] Address: [address] [place] [address] Result Comment: The [place] Diabetes Association (ADA) provides guidance for cutoff values for fasting glucose and random glucose. The ADA defines fasting as no caloric intake for at least 8 hours. Fasting plasma glucose results between 100 to 125 mg/dL indicate increased risk for diabetes (prediabetes). Fasting plasma glucose results greater than or equal to 126 mg/dL meet the criteria for diagnosis of diabetes. In the absence of unequivocal hyperglycemia, results should be confirmed by repeat testing. In a patient with classic symptoms of hyperglycemia or hyperglycemic crisis, random plasma glucose results greater than or equal to 200 mg/dL meet the criteria for diagnosis of diabetes. Reference: Standards of Medical Care in Diabetes 2016, [place] [employer] Association. Diabetes Care. 2016.39(Suppl 1). Performed By: #### 2 4321-2, , 2776-08 #### [facility] CLIA [id number] [address] [place], [place] [address] [place] Potassium [Moles/Vol] 4.4 mmol/L Normal 3.7-5.1 [facility] Comment on above: Order Comment: Speci men Type: BLOOD SPECIMEN Ordering Facility: [facility] Address: [address] [place] [address] Performed By: #### 2 4321-2, , 2776-08 #### [facility] CLIA [id number] [address] [place] [address] [place] Sodium [Moles/Vol] 141 mmol/L Normal 136-144 [facility] Comment on above: Order Comment: Speci men Type: BLOOD SPECIMEN Ordering Facility: [facility] Address: [address] [place] [address] Performed By: #### 2 4321-2, , 2776-08 #### [facility] CLIA [id number] [address] [place] [address] [place] Urea nitrogen [Mass/Vol] 8 mg/dL Low 9-24 [facility] Comment on above: Order Comment: Speci men Type: BLOOD SPECIMEN Ordering Facility: [facility] Address: [address] [place] [address] Performed By: #### 2 4321-2, , 2776-08 #### [facility] CLIA [id number] [address] [place], [place] [address] [place] CBC panel Auto (Bld)on 11-06 Erythrocyte distribution width (RBC) [Ratio] 15.1 % High 11.5-15.0 [facility] Comment on above: Order Comment: Speci men Type: BLOOD SPECIMENOrdering Facility: [facility] Address: [address] [place] [address] Performed By: #### 5 8410-2 ####[facility] [id number] [place] [address] [place] Hematocrit (Bld) [Volume fraction] 31.4 % Low 39.0-51.0 [facility] Comment on above: Order Comment: Speci men Type: BLOOD SPECIMENOrdering Facility: [facility] Address: [address] [place] [address] Performed By: #### 5 8410-2 ####[facility] [id number] [place] [address] [place] Hemoglobin (Bld) [Mass/Vol] 9.9 g/dL Low 13.0-17.0 [facility] Comment on above: Order Comment: Speci men Type: BLOOD SPECIMENOrdering Facility: [facility] Address: [address] [place] [address] Performed By: #### 5 8410-2 ####[facility] [id number] [place] [address] [place] MCH (RBC) [Entitic mass] 27.3 pg Normal 26.0-34.0 [facility] Comment on above: Order Comment: Speci men Type: BLOOD SPECIMENOrdering Facility: [facility] Address: [address] [place] [address] Performed By: #### 5 8410-2 ####[facility] [id number] [place] [address] [place] MCHC (RBC) [Mass/Vol] 31.5 g/dL Normal 30.5-36.0 [facility] Comment on above: Order Comment: Speci men Type: BLOOD SPECIMENOrdering Facility: [facility] Address: [address] [place] [address] Performed By: #### 5 8410-2 ####[facility] [id number] [place] [address] [place] MCV (RBC) [Entitic vol] 86.5 fL Normal 80.0-100.0 [facility] Comment on above: Order Comment: Speci men Type: BLOOD SPECIMENOrdering Facility: [facility] Address: [address] [place] [address] Performed By: #### 5 8410-2 ####[facility] [id number] [place] [address] [place] Nucleated RBC (Bld) [#/Vol] 10*3/uL Normal <0.01 [facility] Comment on above: Order Comment: Speci men Type: BLOOD SPECIMENOrdering Facility: [facility] Address: [address] [place] [address] Performed By: #### 5 8410-2 ####[facility] [id number] [place] [address] [place] Platelet mean volume (Bld) [Entitic vol] 9.4 fL Normal 9.0-12.7 [facility] Comment on above: Order Comment: Speci men Type: BLOOD SPECIMENOrdering Facility: [facility] Address: [address] [place] [address] Performed By: #### 5 8410-2 ####[facility] [id number] [place] [address] [place] Platelets (Bld) [#/Vol] 215 10*3/uL Normal 150-400 [facility] Comment on above: Order Comment: Speci men Type: BLOOD SPECIMENOrdering Facility: [facility] Address: [address] [place] [address] Performed By: #### 5 8410-2 ####[facility] [id number] [place] [address] [place] RBC (Bld) [#/Vol] 3.63 10*6/uL Low 4.20-6.00 [facility] Comment on above: Order Comment: Speci men Type: BLOOD SPECIMENOrdering Facility: [facility] Address: [address] [place] [address] Performed By: #### 5 8410-2 ####[facility] [id number] [place] [address] [place] WBC (Bld) [#/Vol] 8.67 10*3/uL Normal 3.70-11.00 [facility] Comment on above: Order Comment: Speci men Type: BLOOD SPECIMENOrdering Facility: [facility] Address: [address] [place] [address] Performed By: #### 5 8410-2 ####[facility] [id number] [place] [address] [place] CNCOon 11-07-2023 CNCO Letter Text Normal [facility] CNDSon 11-07-2023 CNDS HNO ID: [id number] Author: SAMUEL ROBIN MD Service: General Surgery Author Type: Resident Type: Discharge Summary Filed: 11/07/2023 11:20 Note Text: Attestation signed by Samuel Robin MD at 11/07/2023 11:20 AM Attending Note I evaluated the patient and personally participated in the knox components. I agree with the resident's findings and plan as documented and have discussed the case and management of the patient's care with the resident. Signature: Samuel Robin MD Date: 11/07/2023 Time: 11:20 AM GENERAL SURGERY DISCHARGE SUMMARY PATIENT NAME: Johnny Devine ADMISSION DATE: 10/28/2023 DISCHARGE DATE: 11/07/2023 ATTENDING PHYSICIAN: Samuel Robin* Code Status: Not on file Highest Readmission Risk Score: 20 The 30 day readmissions risk score is derived from an internally validated risk model which evaluates patient level characteristics, utilization history, medication orders and lab results up until the day of discharge. Patients with a score of 40 or above are considered highest risk for readmission. Specific patient level drivers will be listed at the bottom of the summary. REASON FOR HOSPITALIZATION: SBO OPERATIONS DURING HOSPITALIZATION: Urology: 1. Dorsal slit General Surgery Diagnostic laparoscopy PROCEDURES DURING HOSPITALIZATION: IV access Intubation for surgery Anesthesia administration KUB CXR CT Brain HOSPITAL COURSE: Johnny Devine is a 33 year old male with developmental delay and no PSH who presents as a transfer to [facility] from [facility] ED for further management of small bowel obstruction. Given patient's baseline cognitive status, NGT difficult to maintain. He was admitted to the [facility] under care of general surgery and was taken to the OR the following morning for diagnostic laparoscopy. Intra-operative findings demonstrated no adhesins, no apparent hernias, dilated small/large bowel, redundant sigmoid c/f volvulus, easily reduced. After recovering in the PACU, he was taken to the [facility] with NGT in place. Patient arrived to [facility] with 8 Fr pediatric haskins catheter in place, which inadvertently was removed post operatively. Overnight, patient retained urine and Urology was consulted for assistance with haskins catheter replacement. Paraphimosis was noted and could not be reduced. Patient taken back to the OR the following morning 10/29 for dorsal slit procedure. A 10-Fr Haskins was placed without difficulty and will remain for minimum of three days before performing trial void. The remainder of his hospital course is as follows: 10/30 - RN noted blood tinged UOP overnight, cleared to light yellow upon morning assessment. Having bowel function, tolerating diet without vomiting. Added flomax prior to haskins catheter removal. AMET called for tachypnea and question of witnessed seizure by patient's brother while helping him eat. CXR/KUB demonstrate gastric distension and colonic distension. Respiratory rate returned to baseline without any intervention. 10/31 - Haskins removed overnight, spontaneous void. NPO given increased abdominal distension this AM. NGT attempted however could not be placed. +Flatus, +BM. 11/01 - Advanced to CLD. Seizure-like activity in PM - given Ativan. 11/02 - No acute events overnight. Continues on CLD. Neurology consulted - CT head obtained - no acute intracranial process noted. EEG initiated. 11/03 - Advanced to pureed diet. No new reported seizures. 11/04 - Tolerating diet, pain controlled. MRI brain ordered per neuro. 11/05 - Seizure overnight d/t missed doses of Ativan. Given IV VPA. Home medications resumed. Continues on BEM. Tolerating diet. 11/06 - No new seizures while in home regimen. Stable for discharge to alf. Neurology Recommendations on Discharge: - Discharge on anti-epileptic medications as prescribed - Please schedule outpatient follow-up with epilepsy - Please order outpatient MRI without contrast (3T epilepsy protocol) to be done prior to epilepsy appointment Active Hospital Problems Diagnosis Date Noted Oropharyngeal dysphagia 11/06/2023 Epilepsy ([facility]) 11/06/2023 S/P laparoscopy 11/05/2023 Acute postoperative pain 11/05/2023 Obesity, Class I, BMI 30-34.9 11/02/2023 Developmental non-verbal disorder Obsessive-compulsive disorder 09/16/2018 Moderate intellectual disability 09/16/2018 Hypothyroidism 09/16/2018 Bipolar disorder ([facility]) 09/16/2018 Resolved Hospital Problems Diagnosis Date Noted Date Resolved SBO (small bowel obstruction) ([facility]) 10/28/2023 10/31/2023 Transitions of Care Critical Issues: Follow up with Dr. Fairbanks MRI as outpatient and follow up with Neurology in 2 weeks LABS AND PROCEDURES PENDING AT DISCHARGE: No pending results. CONSULTING TEAMS DURING HOSPIT (more content not included)... Normal [facility] CONSULT PROGon 11-07-2023 CONSULT PROG HNO ID: [id number] Author: BRUCE RESENDIZ MD Service: Neurology General Author Type: Resident Type: Consult Progress Note Filed: 11/07/2023 10:19 Note Text: NEUROLOGY CONSULT PROGRESS NOTE SERVICE DATE: 11/06/2023 SERVICE TIME: 8:40 am Current Attending Provider: Samuel Robin* Subjective Interval History: This morning neuro exam appears unchanged. The patient's level of interaction seems to vary based on who he is interacting with - history from his aunt suggests he is close to baseline. PO anti-seizure medications were given. No seizures overnight, some EEG changes which may be related to his underlying Fragile X syndrome. Objective Physical Examination: Neurological: Patient opened his eyes to verbal stimulation today. Remainder of the neuro exam was unchanged. New Labs: WBC (k/uL) Date Value 11/07/2023 8.67 11/06/2023 7.59 11/05/2023 7.54 RBC (m/uL) Date Value 11/07/2023 3.63 11/06/2023 3.71 11/05/2023 3.66 Platelet Count (k/uL) Date Value 11/07/2023 215 11/06/2023 244 11/05/2023 205 BUN (mg/dL) Date Value 11/07/2023 8 11/06/2023 6 11/05/2023 5 Creatinine (mg/dL) Date Value 11/07/2023 0.70 11/06/2023 0.69 11/05/2023 0.64 CBC, Coags, BMP, Mg, Phos Recent Labs 11/07/23 0418 11/06/23 0943 11/05/23 0418 NA 141 146* 142 K 4.4 4.9 4.2 CHLOR 110* 112* 112* CO2 21* 18* 23 GLUC 91 83 96 CA 8.2* 8.9 7.6* MG 2.1 2.3 2.0 P 4.1 4.1 3.1 Liver Function, Amylase, AND Lipase BEM Readin11/05/2023 04:34:00 AM - 11/06/2023 04:32:00 AM This bedside EEG was recorded from 0434 on 11/05/23 until 0432 on 11/06/23 and is suggestive of bilateral cortical dysfunction maximum in the right hemisphere and epileptogenicity with secondary generalization in the right hemisphere. There is also a moderate diffuse encephalopathy. DATA: Diagnostic tests reviewed for today's visit: Most recent labs and imaging results. Impression/Recommenda tions Johnny Devine is a 33 year old male with PMHx autism spectrum disorder (non-verbal at baseline), bipolar disorder, OCD , hypothyroidism, ?seizure disorder (VPA 500 mg BID, lorazepam 2 mg TID) admitted 10/27 with SBO now s/p ex-lap on 10/28 which identified sigmoid volvulus which was reduced. Course c/p paraphimosis requiring reduction and dorsal slit in OR with urology on 10/29. Additionally, on 10/30 and 11/01 patient developed episodes concerning for seizure. Neurology is consulted for assistance with evaluation and management. This morning neuro exam appears unchanged. The patient's level of interaction seems to vary based on who he is interacting with - history from his aunt suggests he is close to baseline. No seizures overnight, some EEG changes which may be related to his underlying Fragile X syndrome. Primary team wants to discharge patient given no active surgical problems. Recommendations: - Discharge on anti-epileptic medications as prescribed - Please schedule outpatient follow-up with epilepsy - Please order outpatient MRI without contrast (3T epilepsy protocol) to be done prior to epilepsy appointment SIGNATURE: Bruce Resendiz MD PATIENT NAME: Johnny Devine DATE: November 06, 2023 TIME: 8:36 AM Normal [facility] Magnesium SerPl-mCncon 11-06 Magnesium [Mass/Vol] 2.1 mg/dL Normal 1.7-2.3 [facility] Comment on above: Order Comment: Speci men Type: BLOOD SPECIMEN Ordering Facility: [facility] Address: [address] [place] [address] Performed By: #### 2 4321-2, 39450-3, 2777-1 #### [facility] CLIA [id number] [address] [place] [address] [place] [address] [place] NURSING PROGon 11-07-2023 NURSING PROG HNO ID: [id number] Author: MAYANK READ RN Service: Nursing Author Type: Registered Nurse Type: Nursing Progress Note Filed: 11/07/2023 14:53 Note Text: Pt is discharged to a alf, plant maintenance supervisor Magi just arrived to cherry picker operator. Reviewed discharge paper works and handed it to the plant maintenance supervisor. IV removed, pt tolerated. EEG removed by hvac technician. Normal [facility] NUTRITIONon 11-07-2023 NUTRITION HNO ID: [id number] Author: RAFAELA COOL DTR Service: Nutrition Therapy Author Type: Cook Fruit Type: Nutrition Filed: 11/07/2023 13:38 Note Text: NUTRITION THERAPY CONTRACTING SUPPORT SPECIALIST NOTE SERVICE DATE: 11/07/2023 SERVICE TIME: 1000 Visit Type: Follow-Up Evaluation Goals Met: Met Plan of Care: Supplements: Ensure Plus High Protein Follow-Up: Tech Reassessment Nursing Admission Assessment Malnutrition Score: 0 Nutrition Intake: Diet Orders (From admission, onward) Start Ordered 11/04/23 0615 DIET FOOD CONSISTENCY CONTROLLED START NOW Question: Food Consistency Answer: PUREED (L4) 11/04/23 0611 Average Daily Calorie Intake (kcal): 1251 kcal Average Daily Protein Intake (gm): 56 gm Average intake over: 3 days (The patient sitter confirmed intakes. He ate well this am. The patient was fed by the sitter.) Appetite: Fair (The patient sitter states the patient ate well this am.) GI Symptoms: None Anthropometrics: Body mass index is 32.38 kg/m?. Loss of lean body mass/visual muscle wasting: No Weight Change: Stable Food Preferences: Will pend nutritional supplements. Allergies: No food alleriges noted in Epic. MNT Billing: $ Routine Care : 1-15 minutes SIGNATURE: Rafaela Cool DTR PATIENT NAME: Johnny Devine DATE: November 07, 2023 TIME: 1:38 PM Normal [facility] Phosphate SerPl-mCncon 11-06 Phosphate [Mass/Vol] 4.1 mg/dL Normal 2.7-4.8 [facility] Comment on above: Order Comment: Speci men Type: BLOOD SPECIMEN Ordering Facility: [facility] Address: [address] [place] [address] Performed By: #### 2 4321-2, 50907-7, 2777-1 #### [facility] CLIA [id number] [address] [place] [address] [place] [address] [place] Basic metabolic 2000 panelon 11-06-2023 Anion gap [Moles/Vol] 16 mmol/L Normal 9-18 [facility] Comment on above: Order Comment: Speci men Type: BLOOD SPECIMEN Ordering Facility: [facility] Address: [address] [place] [address] Performed By: #### 2 4321-2, , 2776-08 #### [facility] CLIA [id number] [address] [place] [address] [place] Calcium [Mass/Vol] 8.9 mg/dL Normal 8.5-10.2 [facility] Comment on above: Order Comment: Speci men Type: BLOOD SPECIMEN Ordering Facility: [facility] Address: [address] [place] [address] Performed By: #### 2 4321-2, , 2776-08 #### [facility] CLIA [id number] [address] [place] [address] [place] Chloride [Moles/Vol] 112 mmol/L High 97-105 [facility] Comment on above: Order Comment: Speci men Type: BLOOD SPECIMEN Ordering Facility: [facility] Address: [address] [place] [address] Performed By: #### 2 4321-2, , 2776-08 #### [facility] CLIA [id number] [address] [place] [address] [place] CO2 [Moles/Vol] 18 mmol/L Low 22-30 [facility] Comment on above: Order Comment: Speci men Type: BLOOD SPECIMEN Ordering Facility: [facility] Address: [address] [place] [address] Performed By: #### 2 4321-2, , 2776-08 #### [facility] CLIA [id number] [address] [place] [address] [place] Creatinine [Mass/Vol] 0.69 mg/dL Low 0.73-1.22 [facility] Comment on above: Order Comment: Sana zuñiga Type: BLOOD SPECIMEN Ordering Facility: [facility] Address: [address] [place] [address] Performed By: #### 2 4321-2, , 2776-08 #### [facility] CLIA [id number] [address] [place] [address] [place] Creatinine and Glomerular filtration rate.predicted panel (S/P/Bld) 127 mL/min/1.73m??? Normal >=60 [facility] Comment on above: Order Comment: Sana zuñiga Type: BLOOD SPECIMEN Ordering Facility: [facility] Address: [address] [place] [address] Result Comment: Lor mated Glomerular Filtration Rate (eGFR) is calculated using the 2020 CKD-EPI creatinine equation. This equation utilizes serum creatinine, sex, and age as parameters. The creatinine assay has traceable calibration to isotope dilution-mass spectrometry. Refer to KDIGO guidelines for clinical interpretation. In patients with unstable renal function, e.g. those with acute kidney injury, the eGFR may not accurately reflect actual GFR. Performed By: #### 2 4321-2, , 2776-08 #### [facility] CLIA [id number] [address] [place] [address] [place] Glucose [Mass/Vol] 83 mg/dL Normal 74-99 [facility] Comment on above: Order Comment: Sana zuñiga Type: BLOOD SPECIMEN Ordering Facility: [facility] Address: [address] [place] [address] Result Comment: The [place] Diabetes Association (ADA) provides guidance for cutoff values for fasting glucose and random glucose. The ADA defines fasting as no caloric intake for at least 8 hours. Fasting plasma glucose results between 100 to 125 mg/dL indicate increased risk for diabetes (prediabetes). Fasting plasma glucose results greater than or equal to 126 mg/dL meet the criteria for diagnosis of diabetes. In the absence of unequivocal hyperglycemia, results should be confirmed by repeat testing. In a patient with classic symptoms of hyperglycemia or hyperglycemic crisis, random plasma glucose results greater than or equal to 200 mg/dL meet the criteria for diagnosis of diabetes. Reference: Standards of Medical Care in Diabetes 2016, [place] [employer] Association. Diabetes Care. 2016.39(Suppl 1). Performed By: #### 2 4321-2, , 2776-08 #### [facility] CLIA [id number] [address] [place] [address] [place] Potassium [Moles/Vol] 4.9 mmol/L Normal 3.7-5.1 [facility] Comment on above: Order Comment: Speci men Type: BLOOD SPECIMEN Ordering Facility: [facility] Address: [address] [place] [address] Performed By: #### 2 4321-2, , 2776-08 #### [facility] CLIA [id number] [address] [place] [address] [place] Sodium [Moles/Vol] 146 mmol/L High 136-144 [facility] Comment on above: Order Comment: Speci men Type: BLOOD SPECIMEN Ordering Facility: [facility] Address: [address] [place] [address] Performed By: #### 2 4321-2, , 2776-08 #### [facility] CLIA [id number] [address] [place] [address] [place] Urea nitrogen [Mass/Vol] 6 mg/dL Low 9-24 [facility] Comment on above: Order Comment: Speci men Type: BLOOD SPECIMEN Ordering Facility: [facility] Address: [address] [place] [address] Performed By: #### 2 4321-2, , 2776-08 #### [facility] CLIA [id number] [address] [place], [place] [address] [place] CBC panel Auto (Bld)on 11-05 Erythrocyte distribution width (RBC) [Ratio] 14.8 % Normal 11.5-15.0 [facility] Comment on above: Order Comment: Speci men Type: BLOOD SPECIMEN Ordering Facility: [facility] Address: [address] [place] [address] Performed By: #### 2 777-1, 25229-7, #### [facility] CLIA [id number] [address] [place] [address] [place] Hematocrit (Bld) [Volume fraction] 31.3 % Low 39.0-51.0 [facility] Comment on above: Order Comment: Speci men Type: BLOOD SPECIMEN Ordering Facility: [facility] Address: [address] [place], [place] [address] Performed By: #### 2 777-1, 27760-7, #### [facility] CLIA [id number] [address] [place], [place] [address] [place] Hemoglobin (Bld) [Mass/Vol] 9.8 g/dL Low 13.0-17.0 [facility] Comment on above: Order Comment: Speci men Type: BLOOD SPECIMEN Ordering Facility: [facility] Address: [address] [place], [place] [address] Performed By: #### 2 777-1, 75002-9, #### [facility] CLIA [id number] [address] [place] [address] [place] MCH (RBC) [Entitic mass] 26.4 pg Normal 26.0-34.0 [facility] Comment on above: Order Comment: Speci men Type: BLOOD SPECIMEN Ordering Facility: [facility] Address: [address] [place] [address] Performed By: #### 2 777-1, 27772-0, #### [facility] CLIA [id number] [address] [place] [address] [place] MCHC (RBC) [Mass/Vol] 31.3 g/dL Normal 30.5-36.0 [facility] Comment on above: Order Comment: Speci men Type: BLOOD SPECIMEN Ordering Facility: [facility] Address: [address] [place] [address] Performed By: #### 2 777-1, 31928-1, #### [facility] CLIA [id number] [address] [place] [address] [place] MCV (RBC) [Entitic vol] 84.4 fL Normal 80.0-100.0 [facility] Comment on above: Order Comment: Speci men Type: BLOOD SPECIMEN Ordering Facility: [facility] Address: [address] [place] [address] Performed By: #### 2 777-1, 04270-1, #### [facility] CLIA [id number] [address] [place] [address] [place] Nucleated RBC (Bld) [#/Vol] 10*3/uL Normal <0.01 [facility] Comment on above: Order Comment: Speci men Type: BLOOD SPECIMEN Ordering Facility: [facility] Address: [address] [place], [place] [address] Performed By: #### 2 777-1, 41827-9, #### [facility] CLIA [id number] [address] [place], [place] [address] [place] Platelet mean volume (Bld) [Entitic vol] 8.9 fL Low 9.0-12.7 [facility] Comment on above: Order Comment: Speci men Type: BLOOD SPECIMEN Ordering Facility: [facility] Address: [address] [place] [address] Performed By: #### 2 777-1, 43456-7, #### [facility] CLIA [id number] [address] [place], [place] [address] [place] Platelets (Bld) [#/Vol] 244 10*3/uL Normal 150-400 [facility] Comment on above: Order Comment: Speci men Type: BLOOD SPECIMEN Ordering Facility: [facility] Address: [address] [place], [place] [address] Performed By: #### 2 777-1, 19279-0, #### [facility] CLIA [id number] [address] [place] [address] [place] RBC (Bld) [#/Vol] 3.71 10*6/uL Low 4.20-6.00 [facility] Comment on above: Order Comment: Speci men Type: BLOOD SPECIMEN Ordering Facility: [facility] Address: [address] [place] [address] Performed By: #### 2 777-1, 89657-3, #### [facility] CLIA [id number] [address] [place] [address] [place] WBC (Bld) [#/Vol] 7.59 10*3/uL Normal 3.70-11.00 [facility] Comment on above: Order Comment: Speci men Type: BLOOD SPECIMEN Ordering Facility: [facility] Address: [address] [place] [address] Performed By: #### 2 777-1, 65005-7, #### [facility] CLIA [id number] [address] [place], [place] [address] [place] CONSULT PROGon 11-06-2023 CONSULT PROG HNO ID: [id number] Author: KIM BHAKTA MD Service: Neurology General Author Type: Physician Type: Consult Progress Note Filed: 11/06/2023 17:31 Note Text: NEUROLOGY CONSULT PROGRESS NOTE SERVICE DATE: 11/06/2023 SERVICE TIME: 8:40 am Current Attending Provider: Samuel Robin* Subjective Interval History: Today, Johnny is not changed Overnight patient had 2 seizures, anti-seizure medications were not given which likely triggered those seizures. Objective Physical Examination: Neurological: Patient opened his eyes to verbal stimulation today. Remainder of the neuro exam was unchanged. New Labs: WBC (k/uL) Date Value 11/05/2023 7.54 11/04/2023 9.36 11/03/2023 7.99 RBC (m/uL) Date Value 11/05/2023 3.66 11/04/2023 3.97 11/03/2023 3.55 Platelet Count (k/uL) Date Value 11/05/2023 205 11/04/2023 242 11/03/2023 208 BUN (mg/dL) Date Value 11/05/2023 5 11/04/2023 4 11/03/2023 5 Creatinine (mg/dL) Date Value 11/05/2023 0.64 11/04/2023 0.70 11/03/2023 0.68 CBC, Coags, BMP, Mg, Phos Recent Labs 11/05/23 0418 11/04/23 0826 NA 142 145* K 4.2 3.6* CHLOR 112* 112* CO2 23 24 GLUC 96 79 CA 7.6* 7.7* MG 2.0 2.0 P 3.1 2.6* Liver Function, Amylase, AND Lipase BEM Readin11/05/2023 04:34:00 AM - 11/06/2023 04:32:00 AM This bedside EEG was recorded from 0434 on 11/05/23 until 0432 on 11/06/23 and is suggestive of bilateral cortical dysfunction maximum in the right hemisphere and epileptogenicity with secondary generalization in the right hemisphere. There is also a moderate diffuse encephalopathy. DATA: Diagnostic tests reviewed for today's visit: Most recent labs and imaging results. Impression/Recommenda tielissa Johnny Devine is a 33 year old male with PMHx autism spectrum disorder (non-verbal at baseline), bipolar disorder, OCD , hypothyroidism, ?seizure disorder (VPA 500 mg BID, lorazepam 2 mg TID) admitted 10/27 with SBO now s/p ex-lap on 10/28 which identified sigmoid volvulus which was reduced. Course c/p paraphimosis requiring reduction and dorsal slit in OR with urology on 10/29. Additionally, on 10/30 and 11/01 patient developed episodes concerning for seizure. Neurology is consulted for assistance with evaluation and management. This morning neuro exam appears unchanged/slightly worse. EEG showed resolution of sharp waves seen on previous BEMs, likely due to the dose increase of the Ativan. It is important at this point to obtain collateral information from family about baseline functioning, as well as an MRI. Spoke with patient's guardian, Cate. She has been present at bedside for much of the day yesterday. She says that patient is very close to his baseline in terms of cognition, alertness, and overall function, although he is slightly sleepier than usual. Given this information, no indication for MRI brain and no further neurological evaluation needed. Overnight patient had 2 seizures, anti-seizure medications were not given which likely triggered those seizures Recommendations: Administer anti-epileptic medications as prescribed (important to relay that information to the night residents and nurses) SIGNATURE: Bruce Resendiz MD PATIENT NAME: Johnny Devine DATE: November 06, 2023 TIME: 8:36 AM Staff Addendum I saw and evaluated the patient. I reviewed the note and agree with the history, exam findings, assessment, and plan listed above. Administration of anti-epileptic drugs per schedule is of paramount importance. The patient's level of interaction seems to vary based on who he is interacting with - history from his aunt suggests he is at his baseline. Please continue bedside EEG monitoring for now. Kim Bhakta MD Staff Neurologist [facility] Normal [facility] Magnesium SerPl-mCncon 11-05 Magnesium [Mass/Vol] 2.3 mg/dL Normal 1.7-2.3 [facility] Comment on above: Order Comment: Specdeshawn zuñiga Type: BLOOD SPECIMEN Ordering Facility: [facility] Address: [address] [place] [address] Performed By: #### 2 4321-2, 84591-7, 2777-1 #### [facility] CLIA [id number] [address] [place], [place] [address] [address] [address] [place] Phosphate SerPl-mCncon 11-05 Phosphate [Mass/Vol] 4.1 mg/dL Normal 2.7-4.8 [facility] Comment on above: Order Comment: Sana zuñiga Type: BLOOD SPECIMEN Ordering Facility: [facility] Address: [address] [place] [address] Performed By: #### 2 4321-2, 81944-3, 2777-1 #### [facility] CLIA [id number] [address] [place] [address] [place] THERAPY NTon 11-06-2023 THERAPY NT HNO ID: [id number] Author: CHANTELL BELLA CCC-BOOMBOAT OPERATOR Service: Speech/Swallow Author Type: Speech Language Pathologist Type: Therapy (PT/OT/Speech/Resp) Filed: 11/06/2023 10:28 Note Text: [facility] Speech Pathology - [facility] Bedside Swallow Evaluation SERVICE DATE: 11/06/2023 [address] IMPRESSIONS: Limited bedside swallowing evaluation as patient can not fully participate, does not follow commands and is non-verbal at baseline. The patient did readily accept liquids and pureed textures with following results: Moderate-severe oral delays; patient showed functional oral transit of liquids but held purees in oral cavity eventually attempting bolus manipulation and then cleared with liquid wash. Seemingly no s/s of aspiration with no reflexive coughs and vocalizations were dry but again, limited evaluation given cognitive status. Prognosis: Favorable with diet modifications/control s RECOMMENDATIONS: Level 4 pureed diet with thin liquids but refer to Recommendation number 4. 2. Controls: *upright as comfortable *1:1 supervision *regular straw *small bites of purees with verbal cueing to move tongue/swallow (which clearly has been consistently needed per a note at bedside from brother stating that patient needs verbal cueing to eat) *alternate purees/liquids to ensure oral cavity cleared 3. PO meds crushed and given in applesauce followed by liquid wash 4. Nutrition Therapy for liquid oral supplements as patient appears to do best with liquid texture. Patient may be able to obtain more adequate oral intake with liquid texture as he has significant oral delays and requires cueing/liquid wash to clear pureed textures. 5. If there are any concerns regarding aspiration risk AND the family/guardians are open to a modified diet (I.e. thickened liquids or alternate feeding system) then consider modified barium swallow for more reliable assessment. PLAN: Page with concerns/questions. Chantell Bella CCC-BOOMBOAT OPERATOR Pager # [phone] BRIEF DIAGNOSIS AND HISTORY per General Surgery HANDP 10-28-2023: Johnny Devine is a 33 year old male non-verbal, developmental delay with no relevant PSH who presents with acute small bowel obstruction. Patient is currently at increased risk of aspiration and nasogastric tube placement with bowel rest is recommended. Nasogastric tube was already placed at the facility. We are opting for an operative management of this patient due to the bowel obstruction in a person who has never had a surgical intervention. s/p dx lap for SBO, sigmoid volvulus was found 10-29-2023. Due to paraphimosis, patient now s/p paraphimosis reduction and dorsal slit 10-30-2023. Hospital course further complicated by seizure activity. Orders received for bedside swallowing evaluation due to concerns for poor oral intake/dysphagia. PAST MEDICAL HISTORY Diagnosis Date Atopic eczema Autism disorder Bipolar 1 disorder (HCC) Cataracts, bilateral Developmental non-verbal disorder Mental retardation associated with Fragile X syndrome Obsessive compulsive disorder PAST SURGICAL HISTORY Procedure Laterality Date DENTAL SURGERY HX BEHAVIORAL OBSERVATIONS: Patient alert, giving himself liquids via straw when arrived at bedside. Patient did not follow any commands for assessment but did readily accept liquid and pureed trials. Patient vocalized but is non-verbal at baseline per history. PRESENT FEEDING METHOD: Oral Diet Level: Pureed (L4) Dentition: Adequate Tracheostomy: No ORAL MECHANISM EVALUATION: Patient unable to follow instructions for adequate assessment but spontaneous ROM appeared reduced, slow. SPEECH PRODUCTION: Patient non-verbal at baseline. Occasional vocalizations noted. CONSISTENCIES GIVEN: Water Applesauce ORAL / PHARYNGEAL SWALLOW COMMENTS: Patient showed functional oral skills with liquid textures but moderate-severe oral delays with pureed textures. With time, patient did eventually move tongue to propel pureed bolus A-P and then used liquid wash to clear. No reflexive coughs but limited assessment of the pharygneal stage of swallowing as patient is non-verbal and could not follow commands. Results and Recommendations were discussed with: MIRIAM adkins SIGNATURE: Chantell Bella CCC-BOOMBOAT OPERATOR PATIENT NAME: Johnny Devine DATE: November 06, 2023 TIME: 10:12 AM PAGER: [phone] Normal [facility] Basic metabolic 2000 panelon 11-05-2023 Anion gap [Moles/Vol] 7 mmol/L Low 05-07 [facility] Comment on above: Order Comment: Speci men Type: BLOOD SPECIMEN Ordering Facility: [facility] Address: [address] [place], [place] [address] Performed By: #### 5 7021-8 #### [facility] CLIA [id number] [address] [place], [place] [address] [place] Calcium [Mass/Vol] 7.6 mg/dL Low 8.5-10.2 [facility] Comment on above: Order Comment: Speci men Type: BLOOD SPECIMEN Ordering Facility: [facility] Address: [address] [place] [address] Performed By: #### 5 7021-8 #### [facility] CLIA [id number] [address] [place] [address] [place] Chloride [Moles/Vol] 112 mmol/L High 97-105 [facility] Comment on above: Order Comment: Speci men Type: BLOOD SPECIMEN Ordering Facility: [facility] Address: [address] [place] [address] Performed By: #### 5 7021-8 #### [facility] CLIA [id number] [address] [place] [address] [place] CO2 [Moles/Vol] 23 mmol/L Normal 22-30 [facility] Comment on above: Order Comment: Speci men Type: BLOOD SPECIMEN Ordering Facility: [facility] Address: [address] [place], [place] [address] Performed By: #### 5 7021-8 #### [facility] CLIA [id number] [address] [place], [place] [address] [place] Creatinine [Mass/Vol] 0.64 mg/dL Low 0.73-1.22 [facility] Comment on above: Order Comment: Speci men Type: BLOOD SPECIMEN Ordering Facility: [facility] Address: [address] [place], [place] [address] Performed By: #### 5 7021-8 #### [facility] CLIA [id number] [address] [place] [address] [place] Creatinine and Glomerular filtration rate.predicted panel (S/P/Bld) 130 mL/min/1.73m??? Normal >=60 [facility] Comment on above: Order Comment: Sana zuñiga Type: BLOOD SPECIMEN Ordering Facility: [facility] Address: [address] [place] [address] Result Comment: Lor mated Glomerular Filtration Rate (eGFR) is calculated using the 2020 CKD-EPI creatinine equation. This equation utilizes serum creatinine, sex, and age as parameters. The creatinine assay has traceable calibration to isotope dilution-mass spectrometry. Refer to KDIGO guidelines for clinical interpretation. In patients with unstable renal function, e.g. those with acute kidney injury, the eGFR may not accurately reflect actual GFR. Performed By: #### 5 7021-8 #### [facility] CLIA [id number] [address] [place] [address] [place] Glucose [Mass/Vol] 96 mg/dL Normal 74-99 [facility] Comment on above: Order Comment: Sana zuñiga Type: BLOOD SPECIMEN Ordering Facility: [facility] Address: [address] [place] [address] Result Comment: The [place] Diabetes [employer] (ADA) provides guidance for cutoff values for fasting glucose and random glucose. The ADA defines fasting as no caloric intake for at least 8 hours. Fasting plasma glucose results between 100 to 125 mg/dL indicate increased risk for diabetes (prediabetes). Fasting plasma glucose results greater than or equal to 126 mg/dL meet the criteria for diagnosis of diabetes. In the absence of unequivocal hyperglycemia, results should be confirmed by repeat testing. In a patient with classic symptoms of hyperglycemia or hyperglycemic crisis, random plasma glucose results greater than or equal to 200 mg/dL meet the criteria for diagnosis of diabetes. Reference: Standards of Medical Care in Diabetes 2016, [place] [employer]. Diabetes Care. 2016.39(Suppl 1). Performed By: #### 5 7021-8 #### [facility] CLIA [id number] [address] [place] [address] [place] Potassium [Moles/Vol] 4.2 mmol/L Normal 3.7-5.1 [facility] Comment on above: Order Comment: Speci men Type: BLOOD SPECIMEN Ordering Facility: [facility] Address: [address] [place] [address] Performed By: #### 5 7021-8 #### [facility] CLIA [id number] [address] [place] [address] [place] Sodium [Moles/Vol] 142 mmol/L Normal 136-144 [facility] Comment on above: Order Comment: Speci men Type: BLOOD SPECIMEN Ordering Facility: [facility] Address: [address] [place] [address] Performed By: #### 5 7021-8 #### [facility] CLIA [id number] [address] [place] [address] [place] Urea nitrogen [Mass/Vol] 5 mg/dL Low 9-24 [facility] Comment on above: Order Comment: Speci men Type: BLOOD SPECIMEN Ordering Facility: [facility] Address: [address] [place] [address] Performed By: #### 5 7021-8 #### [facility] CLIA [id number] [address] [place] [address] [place] CBC panel Auto (Bld)on 11-04 Erythrocyte distribution width (RBC) [Ratio] 14.6 % Normal 11.5-15.0 [facility] Comment on above: Order Comment: Speci men Type: BLOOD SPECIMENOrdering Facility: [facility] Address: [address] [place] [address] Performed By: #### 5 8410-2 ####[facility] [id number] [place] [address] [place] Hematocrit (Bld) [Volume fraction] 30.8 % Low 39.0-51.0 [facility] Comment on above: Order Comment: Speci men Type: BLOOD SPECIMENOrdering Facility: [facility] Address: [address] [place] [address] Performed By: #### 5 8410-2 ####[facility] [id number] [place] [address] [place] Hemoglobin (Bld) [Mass/Vol] 9.7 g/dL Low 13.0-17.0 [facility] Comment on above: Order Comment: Speci men Type: BLOOD SPECIMENOrdering Facility: [facility] Address: [address] [place] [address] Performed By: #### 5 8410-2 ####[facility] [id number] [place] [address] [place] MCH (RBC) [Entitic mass] 26.5 pg Normal 26.0-34.0 [facility] Comment on above: Order Comment: Speci men Type: BLOOD SPECIMENOrdering Facility: [facility] Address: [address] [place] [address] Performed By: #### 5 8410-2 ####[facility] [id number] [place] [address] [place] MCHC (RBC) [Mass/Vol] 31.5 g/dL Normal 30.5-36.0 [facility] Comment on above: Order Comment: Speci men Type: BLOOD SPECIMENOrdering Facility: [facility] Address: [address] [place] [address] Performed By: #### 5 8410-2 ####[facility] [id number] [place] [address] [place] MCV (RBC) [Entitic vol] 84.2 fL Normal 80.0-100.0 [facility] Comment on above: Order Comment: Speci men Type: BLOOD SPECIMENOrdering Facility: [facility] Address: [address] [place] [address] Performed By: #### 5 8410-2 ####[facility] [id number] [place] [address] [place] Nucleated RBC (Bld) [#/Vol] 10*3/uL Normal <0.01 [facility] Comment on above: Order Comment: Speci men Type: BLOOD SPECIMENOrdering Facility: [facility] Address: [address] [place] [address] Performed By: #### 5 8410-2 ####[facility] [id number] [place] [address] [place] Platelet mean volume (Bld) [Entitic vol] 9.1 fL Normal 9.0-12.7 [facility] Comment on above: Order Comment: Speci men Type: BLOOD SPECIMENOrdering Facility: [facility] Address: [address] [place] [address] Performed By: #### 5 8410-2 ####[facility] [id number] [place] [address] [place] Platelets (Bld) [#/Vol] 205 10*3/uL Normal 150-400 [facility] Comment on above: Order Comment: Speci men Type: BLOOD SPECIMENOrdering Facility: [facility] Address: [address] [place] [address] Performed By: #### 5 8410-2 ####[facility] [id number] [place] [address] [place] RBC (Bld) [#/Vol] 3.66 10*6/uL Low 4.20-6.00 [facility] Comment on above: Order Comment: Speci men Type: BLOOD SPECIMENOrdering Facility: [facility] Address: [address] [place] [address] Performed By: #### 5 8410-2 ####[facility] [id number] [place] [address] [place] WBC (Bld) [#/Vol] 7.54 10*3/uL Normal 3.70-11.00 [facility] Comment on above: Order Comment: Speci men Type: BLOOD SPECIMENOrdering Facility: [facility] Address: [address] [place] [address] Performed By: #### 5 8410-2 ####[facility] [id number] [place] [address] [place] Magnesium SerPl-ncon 11-04 Magnesium [Mass/Vol] 2.0 mg/dL Normal 1.7-2.3 [facility] Comment on above: Order Comment: Speci men Type: BLOOD SPECIMEN Ordering Facility: [facility] Address: [address] [place] [address] Performed By: #### 5 7021-8 #### [facility] CLIA [id number] [address] [place] [address] [place] Phosphate SerPl-mCncon 11-04 Phosphate [Mass/Vol] 3.1 mg/dL Normal 2.7-4.8 [facility] Comment on above: Order Comment: Speci men Type: BLOOD SPECIMEN Ordering Facility: [facility] Address: [address] [place] [address] Performed By: #### 5 7021-8 #### [facility] CLIA [id number] [address] [place] [address] [place] THERAPY NTon 11-05-2023 THERAPY NT HNO ID: [id number] Author: ANA LUISA MORALES, PT Service: ? Author Type: Physical Therapist Type: Therapy (PT/OT/Speech/Resp) Filed: 11/05/2023 15:46 Note Text: Physical Therapy Evaluation Summary SERVICE DATE: 11/05/2023 SERVICE TIME: 1459 to 1532 ROOM: H071[facility] PT 6 Clicks Score: 18 DISCHARGE RECOMMENDATIONS Home Recommended Discharge Disposition Comments: Anticipate patient will continue to progress in mobility. Anticipate return to alf as long as able to provide current level of assistance (CGA/Candice). ASSESSMENT Response to Therapy Interventions: Cognitive Deficits, Good Participation in Activities, Needs Frequent Redirection or Reinstruction, Requires Encouragement to Complete Activities, Requires Additional Time to Complete Activities Frequent cueing provided during session. Patient able to perform transfer bed to/from chair with CGA/Candice. Aunt present during session to obtain background info (see below). Patient non-verbal throughout session, with limited responses / head nods. PRECAUTIONS Fall Risk, Seizure CURRENT HOSPITAL COURSE admitted 10/27 with SBO now s/p ex-lap on 10/28 which identified sigmoid volvulus which was reduced. Course c/b paraphimosis requiring reduction and dorsal slit in OR with urology on 10/29. Additionally, on 10/30 and 11/01 patient developed episodes concerning for seizure. Neurology is consulted for assistance with evaluation and management. Relevant Past Medical History: autism spectrum disorder (non-verbal at baseline), bipolar disorder, OCD , hypothyroidism, ?seizure disorder (VPA 500 mg BID, lorazepam 2 mg TID) HOME LIVING Patient Lives With: Other: See Comment Comments: residential ( intermediate care ) Assistance Available: 24-Hour PRIOR FUNCTIONAL LEVEL Required Assistance Assistance Required With: Cleaning, Laundry, Meals, Safety, Self Care, Shopping, Transportation Patient non-verbal at baseline. Aunt (cate) present during session to obtain PLOF. Patient lives at alf. I with mobility. Can feed himself and bathe, but requires cueing to do so. Will communicate with yes/no head nods. Aunt reports he has OCD, and sometimes needs time to do things at his own pace. Unsure of current interests, but tends to like to put things together, laundry, [place]. SUBJECTIVE Pt non-verbal throughout session THERAPY DIAGNOSIS Reduced mobility-other, Abnormalities of gait and mobility-other TREATMENT INTERVENTIONS Evaluation, Therapeutic Activity (17209) Timed Code Treatment (minutes): 18 Skilled Treatment Time (minutes): 33 TRAINING AND EDUCATION PROVIDED Anatomy and Impact on Deficits, Assistive Device Use, Bed Mobility, Benefits of In-Hospital Mobility, Expected Functional Level, Falls Prevention, Gait Pattern, Reduction of Deviations, Patient Exercise/Therapy Program Support Needs, Precautions/Restricti ons, Role of Physical Therapy, Sitting Balance, Standing Balance, Transfers THERAPEUTIC SKILLS USED Activity Dosing, Assessment of Tolerance Including Vitals Response to Activity, Cues for Sequencing/Proper Technique for Activity, Cuing Verbal, Cuing Tactile, Cuing Visual, Management of Critical Lines, Tubes and/or Drains, Physical Assist FUNCTIONAL STATUS Bed Mobility Supine To Sit: Minimal Assistance, Additional Information increased time Sit to Supine: Stand By Assistance, Verbal Cues Only Scooting: Moderate Assistance, Additional Information fluctuates min to modA with use of dina pad to scoot EOB Transfers Sit To Stand: Contact Guard Assistance, Additional Information requires increased time and cueing Stand To Sit: Contact Guard Assistance Bed to Chair Contact Guard Assistance, Additional Information Bed To Chair Transfer Type: Stepping Bed To Chair Transfer Equipment: (MOBILE TESTER) frequent verbal cues Gait Contact Guard Assistance Gait Device: Hand Held Assist Gait Distance (feet): 5 ft x2; bed <> chair Stairs GOALS Patient will demonstrate progress with functional mobility to allow safe discharge to home with available support and/or physical assistance. Rehab Potential: Good PLAN PT Frequency: 3 Times Per Week Treatment Interventions: Education, Energy Conservation Training, Strengthening, Functional Mobility Training, Balance Training Plan for Next Visit: Bed Mobility, Chair Transfer Training, Gait Training SIGNATURE: Ana Luisa Morales, PT PATIENT NAME: Johnny Devine DATE: November 05, 2023 TIME: 3:46 PM Normal [facility] Basic metabolic 2000 panelon 11-04-2023 Anion gap [Moles/Vol] 9 mmol/L Normal - [facility] Comment on above: Order Comment: Speci men Type: BLOOD SPECIMEN Ordering Facility: [facility] Address: [address] [place] [address] Performed By: #### 2 777-1, 08729-3, #### [facility] CLIA [id number] [address] [place], [place] [address] [address] [address] [place] Calcium [Mass/Vol] 7.7 mg/dL Low 8.5-10.2 [facility] Comment on above: Order Comment: Speci men Type: BLOOD SPECIMEN Ordering Facility: [facility] Address: [address] [place] [address] Performed By: #### 2 777-1, 96414-0, #### [facility] CLIA [id number] [address] [place] [address] [place] Chloride [Moles/Vol] 112 mmol/L High 97-105 [facility] Comment on above: Order Comment: Speci men Type: BLOOD SPECIMEN Ordering Facility: [facility] Address: [address] [place] [address] Performed By: #### 2 777-1, 74842-6, 49963-5 #### [facility] CLIA [id number] [address] [place] [address] [place] CO2 [Moles/Vol] 24 mmol/L Normal 22-30 [facility] Comment on above: Order Comment: Speci men Type: BLOOD SPECIMEN Ordering Facility: [facility] Address: [address] [place] [address] Performed By: #### 2 777-1, 73056-6, 72379-8 #### [facility] CLIA [id number] [address] [place] [address] [place] Creatinine [Mass/Vol] 0.70 mg/dL Low 0.73-1.22 [facility] Comment on above: Order Comment: Speci men Type: BLOOD SPECIMEN Ordering Facility: [facility] Address: [address] [place] [address] Performed By: #### 2 777-1, 52049-5, 09917-9 #### [facility] CLIA [id number] [address] [place] [address] [place] Creatinine and Glomerular filtration rate.predicted panel (S/P/Bld) 126 mL/min/1.73m??? Normal >=60 [facility] Comment on above: Order Comment: Speci men Type: BLOOD SPECIMEN Ordering Facility: [facility] Address: [address] [place] [address] Result Comment: Lor mated Glomerular Filtration Rate (eGFR) is calculated using the 2020 CKD-EPI creatinine equation. This equation utilizes serum creatinine, sex, and age as parameters. The creatinine assay has traceable calibration to isotope dilution-mass spectrometry. Refer to KDIGO guidelines for clinical interpretation. In patients with unstable renal function, e.g. those with acute kidney injury, the eGFR may not accurately reflect actual GFR. Performed By: #### 2 777-1, , #### [facility] CLIA [id number] [address] [address] [place] Glucose [Mass/Vol] 79 mg/dL Normal 74-99 [facility] Comment on above: Order Comment: Sana zuñiga Type: BLOOD SPECIMEN Ordering Facility: [facility] Address: [address] [place] [address] Result Comment: The [place] Diabetes [employer] (ADA) provides guidance for cutoff values for fasting glucose and random glucose. The ADA defines fasting as no caloric intake for at least 8 hours. Fasting plasma glucose results between 100 to 125 mg/dL indicate increased risk for diabetes (prediabetes). Fasting plasma glucose results greater than or equal to 126 mg/dL meet the criteria for diagnosis of diabetes. In the absence of unequivocal hyperglycemia, results should be confirmed by repeat testing. In a patient with classic symptoms of hyperglycemia or hyperglycemic crisis, random plasma glucose results greater than or equal to 200 mg/dL meet the criteria for diagnosis of diabetes. Reference: Standards of Medical Care in Diabetes 2016, [place] [employer]. Diabetes Care. 2016.39(Suppl 1). Performed By: #### 2 777-1, , #### [facility] CLIA [id number] [address] [place] [address] [place] Potassium [Moles/Vol] 3.6 mmol/L Low 3.7-5.1 [facility] Comment on above: Order Comment: Sana zuñiga Type: BLOOD SPECIMEN Ordering Facility: [facility] Address: [address] [place] [address] Performed By: #### 2 777-1, 05175-8, #### [facility] CLIA [id number] [address] [place] [id number] [place] Sodium [Moles/Vol] 145 mmol/L High 136-144 [facility] Comment on above: Order Comment: Speci men Type: BLOOD SPECIMEN Ordering Facility: [facility] Address: [address] [place] [address] Performed By: #### 2 777-1, 28885-6, #### [facility] CLIA [id number] [address] [place] [address] [place] Urea nitrogen [Mass/Vol] 4 mg/dL Low 9-24 [facility] Comment on above: Order Comment: Speci men Type: BLOOD SPECIMEN Ordering Facility: [facility] Address: [address] [place] [address] Performed By: #### 2 777-1, 07468-1, #### [facility] CLIA [id number] [address] [place] [address] [place] CBC panel Auto (Bld)on 11-03 Erythrocyte distribution width (RBC) [Ratio] 14.3 % Normal 11.5-15.0 [facility] Comment on above: Order Comment: Speci men Type: BLOOD SPECIMEN Ordering Facility: [facility] Address: [address] [place] [address] Performed By: #### 2 777-1, , #### [facility] CLIA [id number] [address] [place] [address] [place] Hematocrit (Bld) [Volume fraction] 33.4 % Low 39.0-51.0 [facility] Comment on above: Order Comment: Speci men Type: BLOOD SPECIMEN Ordering Facility: [facility] Address: [address] [place] [address] Performed By: #### 2 777-1, 50461-7, #### [facility] CLIA [id number] [address] [place] [address] [place] Hemoglobin (Bld) [Mass/Vol] 10.5 g/dL Low 13.0-17.0 [facility] Comment on above: Order Comment: Speci men Type: BLOOD SPECIMEN Ordering Facility: [facility] Address: [address] [place] [address] Performed By: #### 2 777-1, 67126-8, #### [facility] CLIA [id number] [address] [place] [address] [place] MCH (RBC) [Entitic mass] 26.4 pg Normal 26.0-34.0 [facility] Comment on above: Order Comment: Speci men Type: BLOOD SPECIMEN Ordering Facility: [facility] Address: [address] [place] [address] Performed By: #### 2 777-1, 13889-8, #### [facility] CLIA [id number] [address] [place] [address] [place] MCHC (RBC) [Mass/Vol] 31.4 g/dL Normal 30.5-36.0 [facility] Comment on above: Order Comment: Speci men Type: BLOOD SPECIMEN Ordering Facility: [facility] Address: [address] [place] [address] Performed By: #### 2 777-1, , #### [facility] CLIA [id number] [address] [place] [address] [place] MCV (RBC) [Entitic vol] 84.1 fL Normal 80.0-100.0 [facility] Comment on above: Order Comment: Speci men Type: BLOOD SPECIMEN Ordering Facility: [facility] Address: [address] [place] [address] Performed By: #### 2 777-1, 30850-1, #### [facility] CLIA [id number] [address] [place] [address] [place] Nucleated RBC (Bld) [#/Vol] 10*3/uL Normal <0.01 [facility] Comment on above: Order Comment: Speci men Type: BLOOD SPECIMEN Ordering Facility: [facility] Address: [address] [place] [address] Performed By: #### 2 777-1, 39019-7, #### [facility] CLIA [id number] [address] [place] [address] [place] Platelet mean volume (Bld) [Entitic vol] 8.9 fL Low 9.0-12.7 [facility] Comment on above: Order Comment: Speci men Type: BLOOD SPECIMEN Ordering Facility: [facility] Address: [address] [place] [address] Performed By: #### 2 777-1, 27527-0, #### [facility] CLIA [id number] [address] [place] [address] [place] Platelets (Bld) [#/Vol] 242 10*3/uL Normal 150-400 [facility] Comment on above: Order Comment: Speci men Type: BLOOD SPECIMEN Ordering Facility: [facility] Address: [address] [place] [address] Performed By: #### 2 777-1, 51147-7, #### [facility] CLIA [id number] [address] [place] [address] [place] RBC (Bld) [#/Vol] 3.97 10*6/uL Low 4.20-6.00 [facility] Comment on above: Order Comment: Speci men Type: BLOOD SPECIMEN Ordering Facility: [facility] Address: [address] [place] [address] Performed By: #### 2 777-1, 85549-8, #### [facility] CLIA [id number] [address] [place] [address] [place] WBC (Bld) [#/Vol] 9.36 10*3/uL Normal 3.70-11.00 [facility] Comment on above: Order Comment: Akbardeshawn zuñiga Type: BLOOD SPECIMEN Ordering Facility: [facility] Address: [address] [place] [address] Performed By: #### 2 777-1, 30154-7, #### [facility] CLIA [id number] [address] [place] [address] [place] Magnesium SerPl-mCncon 11-03 Magnesium [Mass/Vol] 2.0 mg/dL Normal 1.7-2.3 [facility] Comment on above: Order Comment: Sana yogesh Type: BLOOD SPECIMEN Ordering Facility: [facility] Address: [address] [place] [address] Performed By: #### 2 777-1, 24725-3, #### [facility] CLIA [id number] [address] [place] [address] [place] NUTRITIONon 11-04-2023 NUTRITION HNO ID: [id number] Author: SAURABH VAZQUEZ DTR Service: Nutrition Therapy Author Type: Cook Fruit Type: Nutrition Filed: 11/04/2023 14:35 Note Text: NUTRITION THERAPY CONTRACTING SUPPORT SPECIALIST NOTE SERVICE DATE: 11/04/2023 SERVICE TIME: 1030 Visit Type: Length of Stay Evaluation Goals Met: Not Met Will monitor for diet advancement and nutritional needs as able. Plan of Care: Follow-Up: [facility] Reassessment Nursing Admission Assessment Malnutrition Score: 0 Nutrition Intake: Diet Orders (From admission, onward) Start Ordered 11/04/23 0615 DIET FOOD CONSISTENCY CONTROLLED START NOW Question: Food Consistency Answer: PUREED (L4) 11/04/23 0611 Average intake over: Unable to determine (Patient was NPO/Clear liquid diet x 5 days with only one day on Full/GIS diet 10/30. Diet advanced to Pureed diet L4 consistency today.) Appetite: Good (Per sitter patient with a good appetite.) GI Symptoms: Unable to determine at this time (No GI issues at this time per sitter.) Anthropometrics: Body mass index is 32.38 kg/m?. MNT Billing: $ Routine Care : 1-15 minutes SIGNATURE: Saurabh Vazquez DTR PATIENT NAME: Johnny Devine DATE: November 04, 2023 TIME: 2:25 PM Normal [facility] Phosphate SerPl-mCncon 11-03 Phosphate [Mass/Vol] 2.6 mg/dL Low 2.7-4.8 [facility] Comment on above: Order Comment: Speci men Type: BLOOD SPECIMEN Ordering Facility: [facility] Address: [address] [place] [address] Performed By: #### 2 777-1, 22486-8, 50048-2 #### [facility] CLIA [id number] [address] [place] [address] [place] Valproate Free SerPl-mCncon 11-04-2023 Valproate Free [Mass/Vol] 11.3 ug/mL Normal 4.0-30.0 [facility] Comment on above: Order Comment: Speci men Type: BLOOD SPECIMENOrdering Facility: [facility] Address: [address] [place] [address] Result Comment: Refe rence ranges and high/low indicator flags are provided as general guidelines only. The treating physician must determine appropriate target levels/dosing based on the specific clinical situation. This test was developed and its performance characteristics determined by [facility]'s [facility] [place] ([facility]). It has not been cleared or approved by the FDA. -[facility] is regulated under CLIA as qualified to perform high-complexity testing. This test is used for clinical purposes. It should not be regarded as investigational or for research. Performed By: #### 4 087-3 ####[facility] [id number] [place] [address] [place] Valproate SerPl-mCncon 11-03 Valproate [Mass/Vol] 49.2 ug/mL Low 50.0-100.0 [facility] Comment on above: Order Comment: Speci men Type: BLOOD SPECIMEN Ordering Facility: [facility] Address: [address] [place] [address] Result Comment: Refe rence ranges and high/low indicator flags are provided as general guidelines only. The treating physician must determine appropriate target levels/dosing based on the specific clinical situation. Performed By: #### 2 4321-2, 79615-2, 2777-1 #### [facility] CLIA [id number] [address] [place] [address] [place] Basic metabolic 2000 panelon 11-03-2023 Anion gap [Moles/Vol] 11 mmol/L Normal 9-18 [facility] Comment on above: Order Comment: Speci men Type: BLOOD SPECIMEN Ordering Facility: [facility] Address: [address] [place] [address] Performed By: #### 2 777-1, 54497-5, #### [facility] CLIA [id number] [address] [place] [address] [place] Calcium [Mass/Vol] 7.7 mg/dL Low 8.5-10.2 [facility] Comment on above: Order Comment: Speci men Type: BLOOD SPECIMEN Ordering Facility: [facility] Address: [address] [place] [address] Performed By: #### 2 777-1, 28759-8, #### [facility] CLIA [id number] [address] [place] [address] [place] Chloride [Moles/Vol] 112 mmol/L High 97-105 [facility] Comment on above: Order Comment: Speci men Type: BLOOD SPECIMEN Ordering Facility: [facility] Address: [address] [place] [address] Performed By: #### 2 777-1, 90495-8, #### [facility] CLIA [id number] [address] [place], [place] [address] [place] CO2 [Moles/Vol] 22 mmol/L Normal 22-30 [facility] Comment on above: Order Comment: Akbari yogesh Type: BLOOD SPECIMEN Ordering Facility: [facility] Address: [address] [place] [address] Performed By: #### 2 777-1, 47060-3, #### [facility] CLIA [id number] [address] [place] [address] [place] Creatinine [Mass/Vol] 0.68 mg/dL Low 0.73-1.22 [facility] Comment on above: Order Comment: Speci men Type: BLOOD SPECIMEN Ordering Facility: [facility] Address: [address] [place] [address] Performed By: #### 2 777-1, , #### [facility] CLIA [id number] [address] [place] [address] [place] Creatinine and Glomerular filtration rate.predicted panel (S/P/Bld) 127 mL/min/1.73m??? Normal >=60 [facility] Comment on above: Order Comment: Sana zuñiga Type: BLOOD SPECIMEN Ordering Facility: [facility] Address: [address] [place] [address] Result Comment: Lor mated Glomerular Filtration Rate (eGFR) is calculated using the 2020 CKD-EPI creatinine equation. This equation utilizes serum creatinine, sex, and age as parameters. The creatinine assay has traceable calibration to isotope dilution-mass spectrometry. Refer to KDIGO guidelines for clinical interpretation. In patients with unstable renal function, e.g. those with acute kidney injury, the eGFR may not accurately reflect actual GFR. Performed By: #### 2 777-1, , #### [facility] CLIA [id number] [address] [place] [address] [place] Glucose [Mass/Vol] 85 mg/dL Normal 74-99 [facility] Comment on above: Order Comment: Akbari men Type: BLOOD SPECIMEN Ordering Facility: [facility] Address: [facility] [place] [address] Result Comment: The [place] Diabetes Association (ADA) provides guidance for cutoff values for fasting glucose and random glucose. The ADA defines fasting as no caloric intake for at least 8 hours. Fasting plasma glucose results between 100 to 125 mg/dL indicate increased risk for diabetes (prediabetes). Fasting plasma glucose results greater than or equal to 126 mg/dL meet the criteria for diagnosis of diabetes. In the absence of unequivocal hyperglycemia, results should be confirmed by repeat testing. In a patient with classic symptoms of hyperglycemia or hyperglycemic crisis, random plasma glucose results greater than or equal to 200 mg/dL meet the criteria for diagnosis of diabetes. Reference: Standards of Medical Care in Diabetes 2016, [place] [employer] Association. Diabetes Care. 2016.39(Suppl 1). Performed By: #### 2 777-1, 95782-1, #### [facility] CLIA [id number] [address] [place] [address] [place] Potassium [Moles/Vol] 3.4 mmol/L Low 3.7-5.1 [facility] Comment on above: Order Comment: Speci men Type: BLOOD SPECIMEN Ordering Facility: [facility] Address: [address] [place] [address] Performed By: #### 2 777-1, , #### [facility] CLIA [id number] [address] [place] [address] [place] Sodium [Moles/Vol] 145 mmol/L High 136-144 [facility] Comment on above: Order Comment: Speci men Type: BLOOD SPECIMEN Ordering Facility: [facility] Address: [address] [place] [address] Performed By: #### 2 777-1, , #### [facility] CLIA [id number] [address] [place] [address] [place] Urea nitrogen [Mass/Vol] 5 mg/dL Low 9-24 [facility] Comment on above: Order Comment: Speci men Type: BLOOD SPECIMEN Ordering Facility: [facility] Address: [address] [place] [address] Performed By: #### 2 777-1, 01048-2, 55224-4 #### [facility] CLIA [id number] [address] [place] [address] [place] CBC W Auto Differential pane l (Bld)on 11-03-2023 Basophils (Bld) [#/Vol] 10*3/uL Normal <0.11 [facility] Comment on above: Order Comment: Speci men Type: BLOOD SPECIMEN Ordering Facility: [facility] Address: [address] [place] [address] Performed By: #### 5 7021-8 #### [facility] CLIA [id number] [address] [place] [address] [place] Basophils/100 WBC (Bld) 0.3 % Normal [facility] Comment on above: Order Comment: Speci men Type: BLOOD SPECIMEN Ordering Facility: [facility] Address: [address] [place] [address] Performed By: #### 5 7021-8 #### [facility] CLIA [id number] [address] [place] [address] [place] Differential cell count method Nom (Bld) Auto Normal [facility] Comment on above: Order Comment: Speci men Type: BLOOD SPECIMEN Ordering Facility: [facility] Address: [address] [place] [address] Performed By: #### 5 7021-8 #### [facility] CLIA [id number] [address] [place] [address] [place] Eosinophils (Bld) [#/Vol] 0.25 10*3/uL Normal <0.46 [facility] Comment on above: Order Comment: Speci men Type: BLOOD SPECIMEN Ordering Facility: [facility] Address: [address] [place] [address] Performed By: #### 5 7021-8 #### [facility] CLIA [id number] [address] [place] [address] [place] Eosinophils/100 WBC (Bld) 3.1 % Normal [facility] Comment on above: Order Comment: Speci men Type: BLOOD SPECIMEN Ordering Facility: [facility] Address: [address] [place] [address] Performed By: #### 5 7021-8 #### [facility] CLIA [id number] [address] [place] [address] [place] Erythrocyte distribution width (RBC) [Ratio] 13.7 % Normal 11.5-15.0 [facility] Comment on above: Order Comment: Speci men Type: BLOOD SPECIMEN Ordering Facility: [facility] Address: [address] [place] [address] Performed By: #### 5 7021-8 #### [facility] CLIA [id number] [address] [place] [address] [place] Hematocrit (Bld) [Volume fraction] 29.9 % Low 39.0-51.0 [facility] Comment on above: Order Comment: Speci men Type: BLOOD SPECIMEN Ordering Facility: [facility] Address: [address] [place] [address] Performed By: #### 5 7021-8 #### [facility] CLIA [id number] [address] [place] [address] [place] Hemoglobin (Bld) [Mass/Vol] 9.4 g/dL Low 13.0-17.0 [facility] Comment on above: Order Comment: Speci men Type: BLOOD SPECIMEN Ordering Facility: [facility] Address: [address] [place] [address] Performed By: #### 5 7021-8 #### [facility] CLIA [id number] [address] [place] [address] [place] Immature granulocytes (Bld) [#/Vol] 0.11 10*3/uL High <0.10 [facility] Comment on above: Order Comment: Speci men Type: BLOOD SPECIMEN Ordering Facility: [facility] Address: [address] [place] [address] Performed By: #### 5 7021-8 #### [facility] CLIA [id number] [address] [place] [address] [place] Immature granulocytes/100 WBC (Bld) 1.4 % Normal [facility] Comment on above: Order Comment: Speci men Type: BLOOD SPECIMEN Ordering Facility: [facility] Address: [address] [place] [address] Performed By: #### 5 7021-8 #### [facility] CLIA [id number] [address] [place] [address] [place] Lymphocytes (Bld) [#/Vol] 2.03 10*3/uL Normal 1.00-4.00 [facility] Comment on above: Order Comment: Speci men Type: BLOOD SPECIMEN Ordering Facility: [facility] Address: [address] [place] [address] Performed By: #### 5 7021-8 #### [facility] CLIA [id number] [address] [place] [address] [place] Lymphocytes/100 WBC (Bld) 25.4 % Normal [facility] Comment on above: Order Comment: Speci men Type: BLOOD SPECIMEN Ordering Facility: [facility] Address: [address] [place] [address] Performed By: #### 5 7021-8 #### [facility] CLIA [id number] [address] [place] [address] [place] MCH (RBC) [Entitic mass] 26.5 pg Normal 26.0-34.0 [facility] Comment on above: Order Comment: Speci men Type: BLOOD SPECIMEN Ordering Facility: [facility] Address: [address] [place] [address] Performed By: #### 5 7021-8 #### [facility] CLIA [id number] [address] [place] [address] [place] MCHC (RBC) [Mass/Vol] 31.4 g/dL Normal 30.5-36.0 [facility] Comment on above: Order Comment: Speci men Type: BLOOD SPECIMEN Ordering Facility: [facility] Address: [address] [place] [address] Performed By: #### 5 7021-8 #### [facility] CLIA [id number] [address] [place] [address] [place] MCV (RBC) [Entitic vol] 84.2 fL Normal 80.0-100.0 [facility] Comment on above: Order Comment: Speci men Type: BLOOD SPECIMEN Ordering Facility: [facility] Address: [address] [place] [address] Performed By: #### 5 7021-8 #### [facility] CLIA [id number] [address] [place] [address] [place] Monocytes (Bld) [#/Vol] 0.62 10*3/uL Normal <0.87 [facility] Comment on above: Order Comment: Speci men Type: BLOOD SPECIMEN Ordering Facility: [facility] Address: [address] [place] [address] Performed By: #### 5 7021-8 #### [facility] CLIA [id number] [address] [place] [address] [place] Monocytes/100 WBC (Bld) 7.8 % Normal [facility] Comment on above: Order Comment: Speci men Type: BLOOD SPECIMEN Ordering Facility: [facility] Address: [address] [place] [address] Performed By: #### 5 7021-8 #### [facility] CLIA [id number] [address] [place] [address] [place] Neutrophils (Bld) [#/Vol] 4.96 10*3/uL Normal 1.45-7.50 [facility] Comment on above: Order Comment: Speci men Type: BLOOD SPECIMEN Ordering Facility: [facility] Address: [address] [place] [address] Performed By: #### 5 7021-8 #### [facility] CLIA [id number] [address] [place] [address] [place] Neutrophils/100 WBC (Bld) 62.0 % Normal [facility] Comment on above: Order Comment: Speci men Type: BLOOD SPECIMEN Ordering Facility: [facility] Address: [address] [place] [address] Performed By: #### 5 7021-8 #### [facility] CLIA [id number] [address] [place] [address] [place] Nucleated RBC (Bld) [#/Vol] 10*3/uL Normal <0.01 [facility] Comment on above: Order Comment: Speci men Type: BLOOD SPECIMEN Ordering Facility: [facility] Address: [address] [place] [address] Performed By: #### 5 7021-8 #### [facility] CLIA [id number] [address] [place] [address] [place] Nucleated RBC/100 WBC (Bld) [Ratio] 0.0 /100 WBC Normal [facility] Comment on above: Order Comment: Speci men Type: BLOOD SPECIMEN Ordering Facility: [facility] Address: [address] [place] [address] Performed By: #### 5 7021-8 #### [facility] CLIA [id number] [address] [place] [address] [place] Platelet mean volume (Bld) [Entitic vol] 9.3 fL Normal 9.0-12.7 [facility] Comment on above: Order Comment: Speci men Type: BLOOD SPECIMEN Ordering Facility: [facility] Address: [address] [place] [address] Performed By: #### 5 7021-8 #### [facility] CLIA [id number] [address] [place] [address] [place] Platelets (Bld) [#/Vol] 208 10*3/uL Normal 150-400 [facility] Comment on above: Order Comment: Speci men Type: BLOOD SPECIMEN Ordering Facility: [facility] Address: [address] [place] [address] Performed By: #### 5 7021-8 #### [facility] CLIA [id number] [address] [place] [address] [place] RBC (Bld) [#/Vol] 3.55 10*6/uL Low 4.20-6.00 [facility] Comment on above: Order Comment: Speci men Type: BLOOD SPECIMEN Ordering Facility: [facility] Address: [address] [place] [address] Performed By: #### 5 7021-8 #### [facility] CLIA [id number] [address] [place] [address] [place] WBC (Bld) [#/Vol] 7.99 10*3/uL Normal 3.70-11.00 [facility] Comment on above: Order Comment: Speci men Type: BLOOD SPECIMEN Ordering Facility: [facility] Address: [address] [place] [address] Performed By: #### 5 7021-8 #### [facility] CLIA [id number] [address] [place] [address] [place] CONSULTon 11-03-2023 CONSULT HNO ID: [id number] Author: CK HU MD Service: Neurology General Author Type: Resident Type: Consults Filed: 11/03/2023 11:00 Note Text: Attestation signed by Landy Almanzar MD at 11/04/2023 10:41 AM Johnny Devine is a 33 year old male with PMHx autism spectrum disorder (non-verbal at baseline), bipolar disorder, OCD , hypothyroidism, ?seizure disorder (VPA 500 mg BID, lorazepam 2 mg TID) admitted 10/27 with SBO now s/p ex-lap on 10/28 which identified sigmoid volvulus which was reduced. At this time, patient is very sedated and only intermittently following commands. As Depakote levels are normal, we will continue Depakote 500 mg BID for now. Would recommend increasing Lorazepam to 2 mg TID as per his home dose; appears to be 1 mg TID on OCT? cEEG for another 24 hours as his current EEG is concerning for a left temporal focus. Neurology will continue to follow. INITIAL CONSULT - GENERAL NEUROLOGY SERVICE DATE: 11/03/2023 SERVICE TIME: 9:18 AM Team Requesting Consult: Gen neely Current Attending Provider: Samuel Robin* Neurology was asked to evaluate Johnny Devine, a 33 year old male. Our recommendations of care will be communicated by shared medical record. Subjective HPI: Johnny Devine is a 33 year old male with PMHx autism spectrum disorder (non-verbal at baseline), bipolar disorder, OCD , hypothyroidism, ?seizure disorder (VPA 500 mg BID, lorazepam 2 mg TID) admitted 10/27 with SBO now s/p ex-lap on 10/28 which identified sigmoid volvulus which was reduced. Course c/p paraphimosis requiring reduction and dorsal slit in OR with urology on 10/29. Additionally, on 10/30 and 11/01 patient developed episodes concerning for seizure. Neurology is consulted for assistance with evaluation and management. History is severely limited as patient is non-verbal at baseline, next of kin unable to be reached via multiple telephone calls today, and primary team/RN have only heard about seizure-like activity from prior days teams but no direct observation of further abnormal activity today. First episode concerning for seizure occurred on the afternoon of 10/30. Per avaliable notes from RN and AMET team, patient developed tachypnea and increased WOB. Subsequently started shaking and having seizure activity. Placed on 2 L NC for O2 sat 90%. Glucose 123. HDS. In questioning the brother about events leading up to this, he felt he may have had difficulty swallowing a piece of chicken from lunch. The patient is also is restraints. He may have aspirated the chicken and this caused the UE rigidness and jerking? He did not appear to be post-ictal and has no hx of seizures. Will defer further neuro workup to primary as patient was at his baseline mental status during the Amet call. CXR ordered and pending. WOB and RR slowed back to his baseline without any intervention. Then on the evening of 11/01 Johnny had a 20 second episode of seizure-like activity where he was agitated and flailing all extremities. By the time primary arrived to bedside he appeared to have returned to baseline. Received ativan 2 mg IV at 2238. Unclear from EMR if Johnny carries a prior diagnosis of epilepsy. Guardian is brother, Delbert. Patient lives in a alf at baseline. Per information written on board in patient's hospital room, he does follow some simple commands, is able to ambulate and use the restroom independently. History of self-injurious behavior. Appears per EMR and fill history, that Johnny is prescribed Divalproex DR 500 mg BID and lorazepam 2 mg TID scheduled. Per OCT, lorazepam held since admission, VPA 250 mg q6h ordered with 2 missed doses on 11/01. Last dose of VPA was at 510 this AM. VPA level from 7 AM this morning was 53. Current Facility-Administered Medications Medication Dose Route Frequency levothyroxine 112 mcg tab(s) (SYNTHROID) 112 mcg ORAL DAILY (6 AM) heparin 5,000 Units injection 5,000 Units SUBCUTANEOUS q 8 H NaCl 0.9% iv flush bag 20 mL INTRAVENOUS PRN ondansetron orally disintegrating 4 mg tab(s) (ZOFRAN ODT) 4 mg ORAL q 6 H PRN Or ondansetron (PF) 4 mg injection (ZOFRAN) 4 mg INTRAVENOUS q 6 H PRN naltrexone 100 mg tab(s) 100 mg ORAL BID risperiDONE 3 mg tab(s) (RisperDAL) 3 mg ORAL BID montelukast 10 mg tab(s) (SINGULAIR) 10 mg ORAL AT BEDTIME QUEtiapine 100 mg tab(s) (SEROquel) 100 mg ORAL BID bisacodyl 10 mg suppository (DULCOLAX) 10 mg RECTAL DAILY phenol 1 [place] (CHLORASEPTIC) 1 [place] MUCOUS MEMBRANE (TOPICAL MOUTH AND THROAT) q 2 H PRN Or benzocaine-menthol 1 [place]oz[place] (CHLORASEPTIC) 1 [place]oz[place] MUCOUS MEMBRANE (TOPICAL MOUTH AND THROAT) q 2 H PRN clomiPRAMINE 75 mg cap(s) (ANAFRANIL) 75 mg ORAL AT BEDTIME lithium carbonate 300 mg cap(s) (ESKALITH) 300 mg ORAL BID sertraline (ZOLOFT (more content not included)... Normal [facility] CT BRAIN WO IVCONon 11-03-[address] BRAIN WO IVCON * * *Final Report* * * DATE OF EXAM: Nov 03 2023 7:42PM [facility] [place] BRAIN WO IVCON / PROCEDURE REASON: Mental status change, unknown cause * * * * Physician Interpretation * * * * EXAMINATION: CT BRAIN WO IVCON CLINICAL HISTORY: Seizure TECHNIQUE: Serial axial images without IV contrast were obtained from the vertex to the foramen magnum. MQ: [id number]_3 CT Radiation dose: Integrated Dose-Length Product (DLP) for this visit = 841 mGy*cm CT Dose Reduction Employed: No dose reduction techniques were required COMPARISON: None. RESULT: Agriculture Teacher (topogram) images: No additional findings. Post-operative change: None. Acute change: No evidence of an acute infarct or other acute parenchymal process. Hemorrhage: No evidence of acute intracranial hemorrhage. ECASS hemorrhagic transformation score: Not Applicable Mass Lesion / Mass Effect: There is no evidence of an intracranial mass or extraaxial fluid collection. No significant mass effect. Chronic change: Posterior hemispheric greater than anterior hemispheric white matter volume loss and resultant ventricular prominence. Parenchyma: Volume loss as described above. The brain parenchyma is otherwise within normal limits for age. Ventricles: Ventricular enlargement concordant with the degree of parenchymal volume loss. Paranasal sinuses and skull base: Midline scalp defect over the forehead should be correlated with physical exam. The visualized paranasal sinuses are grossly clear. The skull base and imaged soft tissues are unremarkable. IMPRESSION: Volume loss, especially in posterior hemispheric white matter, most likely a chronic finding. No clear evidence of an acute abnormality. Site Planner: PSCShayna Transcribe Date/Time: Nov 03 2023 7:43P Dictated by : HERMAN DOWD MD This examination was interpreted and the report reviewed and electronically signed by: HERMAN DOWD MD on Nov 03 2023 7:44PM EST [id number] Normal [facility] [place], Bld SerPl-sCncon [place] [Moles/Vol] 0.5 mmol/L Low 0.6-1.2 [facility] Comment on above: Order Comment: Sana zuñiga Type: BLOOD SPECIMEN Ordering Facility: [facility] Address: [address] [place] [address] Result Comment: Refe rence ranges and high/low indicator flags are provided as general guidelines only. The treating physician must determine appropriate target levels/dosing based on the specific clinical situation. Performed By: #### 1 4334-7, 4086-5 #### [facility] CLIA [id number] [address] [place] [address] [place] Magnesium SerPl-mCncon 11-02 Magnesium [Mass/Vol] 2.2 mg/dL Normal 1.7-2.3 [facility] Comment on above: Order Comment: Sana zuñiga Type: BLOOD SPECIMEN Ordering Facility: [facility] Address: [address] [place] [address] Performed By: #### 2 777-1, 21617-0, 63725-9 #### [facility] CLIA [id number] [address] [place] [address] [place] Phosphate SerPl-mCncon 11-02 Phosphate [Mass/Vol] 2.5 mg/dL Low 2.7-4.8 [facility] Comment on above: Order Comment: Specdeshawn zuñiga Type: BLOOD SPECIMEN Ordering Facility: [facility] Address: [address] [place] [address] Performed By: #### 2 777-1, 51605-9, 97916-6 #### [facility] CLIA [id number] [address] [place] [address] [place] THERAPY NTon 11-03-2023 THERAPY NT HNO ID: [id number] Author: ANKITA BLACKBURN PT, DPT Service: Physical Therapy Author Type: Physical Therapist Type: Therapy (PT/OT/Speech/Resp) Filed: 11/03/2023 13:48 Note Text: PHYSICAL THERAPY MISSED VISIT SERVICE DATE: 11/03/2023 SERVICE TIME: 1347 ROOM: [place] [address] Patient not seen due to Patient Not Available. Another service at bedside upon time of arrival x2 attempts. Will follow up as able/appropriate. SIGNATURE: Ankita Blackburn PT, DPT PATIENT NAME: Johnny Devine DATE: November 03, 2023 TIME: 1:48 PM Normal [facility] Valproate SerPl-mCncon 11-02 Valproate [Mass/Vol] 53.0 ug/mL Normal 50.0-100.0 [facility] Comment on above: Order Comment: Sana zuñiga Type: BLOOD SPECIMEN Ordering Facility: [facility] Address: [address] [place] [address] Result Comment: Refe rence ranges and high/low indicator flags are provided as general guidelines only. The treating physician must determine appropriate target levels/dosing based on the specific clinical situation. Performed By: #### 1 4334-7, 4086-5 #### [facility] CLIA [id number] [address] [place] [address] [place] Basic metabolic 2000 panelon 11-02-2023 Anion gap [Moles/Vol] 8 mmol/L Low 9-18 [facility] Comment on above: Order Comment: Speci men Type: BLOOD SPECIMEN Ordering Facility: [facility] Address: [address] [place] [address] Performed By: #### 2 777-1, 29449-4, #### [facility] CLIA [id number] [address] [place] [address] [place] Calcium [Mass/Vol] 7.7 mg/dL Low 8.5-10.2 [facility] Comment on above: Order Comment: Speci men Type: BLOOD SPECIMEN Ordering Facility: [facility] Address: [address] [place] [address] Performed By: #### 2 777-1, 74666-6, #### [facility] CLIA [id number] [address] [place] [address] [place] Chloride [Moles/Vol] 109 mmol/L High 97-105 [facility] Comment on above: Order Comment: Speci men Type: BLOOD SPECIMEN Ordering Facility: [facility] Address: [address] [place] [address] Performed By: #### 2 777-1, 38779-5, #### [facility] CLIA [id number] [address] [place] [address] [place] CO2 [Moles/Vol] 24 mmol/L Normal 22-30 [facility] Comment on above: Order Comment: Speci men Type: BLOOD SPECIMEN Ordering Facility: [facility] Address: [address] [place] [address] Performed By: #### 2 777-1, 64759-1, #### [facility] CLIA [id number] [address] [place] [address] [place] Creatinine [Mass/Vol] 0.66 mg/dL Low 0.73-1.22 [facility] Comment on above: Order Comment: Speci men Type: BLOOD SPECIMEN Ordering Facility: [facility] Address: [address] [place] [address] Performed By: #### 2 777-1, 33385-3, #### [facility] CLIA [id number] [address] [place] [address] [place] Creatinine and Glomerular filtration rate.predicted panel (S/P/Bld) 129 mL/min/1.73m??? Normal >=60 [facility] Comment on above: Order Comment: Sana zuñiga Type: BLOOD SPECIMEN Ordering Facility: [facility] Address: [address] [place] [address] Result Comment: Lor mated Glomerular Filtration Rate (eGFR) is calculated using the 2020 CKD-EPI creatinine equation. This equation utilizes serum creatinine, sex, and age as parameters. The creatinine assay has traceable calibration to isotope dilution-mass spectrometry. Refer to KDIGO guidelines for clinical interpretation. In patients with unstable renal function, e.g. those with acute kidney injury, the eGFR may not accurately reflect actual GFR. Performed By: #### 2 777-1, 20802-3, #### [facility] CLIA [id number] [address] [place] [address] [place] Glucose [Mass/Vol] 109 mg/dL High 74-99 [facility] Comment on above: Order Comment: Sana zuñiga Type: BLOOD SPECIMEN Ordering Facility: [facility] Address: [address] [place] [address] Result Comment: The [place] Diabetes [employer] (ADA) provides guidance for cutoff values for fasting glucose and random glucose. The ADA defines fasting as no caloric intake for at least 8 hours. Fasting plasma glucose results between 100 to 125 mg/dL indicate increased risk for diabetes (prediabetes). Fasting plasma glucose results greater than or equal to 126 mg/dL meet the criteria for diagnosis of diabetes. In the absence of unequivocal hyperglycemia, results should be confirmed by repeat testing. In a patient with classic symptoms of hyperglycemia or hyperglycemic crisis, random plasma glucose results greater than or equal to 200 mg/dL meet the criteria for diagnosis of diabetes. Reference: Standards of Medical Care in Diabetes 2016, [place] [employer]. Diabetes Care. 2016.39(Suppl 1). Performed By: #### 2 777-1, 62929-2, #### [facility] CLIA [id number] [address] [place] [address] [place] Potassium [Moles/Vol] 3.5 mmol/L Low 3.7-5.1 [facility] Comment on above: Order Comment: Speci men Type: BLOOD SPECIMEN Ordering Facility: [facility] Address: [address] [place] [address] Performed By: #### 2 777-1, 78491-5, #### [facility] CLIA [id number] [address] [place] [address] [place] Sodium [Moles/Vol] 141 mmol/L Normal 136-144 [facility] Comment on above: Order Comment: Speci men Type: BLOOD SPECIMEN Ordering Facility: [facility] Address: [address] [place] [address] Performed By: #### 2 777-1, , #### [facility] CLIA [id number] [address] [place] [address] [place] Urea nitrogen [Mass/Vol] 7 mg/dL Low 9-24 [facility] Comment on above: Order Comment: Speci men Type: BLOOD SPECIMEN Ordering Facility: [facility] Address: [address] [place] [address] Performed By: #### 2 777-1, 86722-6, #### [facility] CLIA [id number] [address] [place], [place] [address] [place] CBC W Auto Differential pane l (Bld)on 11-02-2023 Basophils (Bld) [#/Vol] 0.04 10*3/uL Normal <0.11 [facility] Comment on above: Order Comment: Speci men Type: BLOOD SPECIMEN Ordering Facility: [facility] Address: [address] [place] [address] Performed By: #### 2 4321-2, , 2776-08 #### [facility] CLIA [id number] [address] [place] [address] [place] Basophils/100 WBC (Bld) 0.5 % Normal [facility] Comment on above: Order Comment: Speci men Type: BLOOD SPECIMEN Ordering Facility: [facility] Address: [address] [place] [address] Performed By: #### 2 4321-2, , 2776-08 #### [facility] CLIA [id number] [address] [place] [address] [place] Differential cell count method Nom (Bld) Auto Normal [facility] Comment on above: Order Comment: Speci men Type: BLOOD SPECIMEN Ordering Facility: [facility] Address: [address] [place] [address] Performed By: #### 2 4320-2, , 2776-08 #### [facility] CLIA [id number] [address] [place] [address] [place] Eosinophils (Bld) [#/Vol] 0.24 10*3/uL Normal <0.46 [facility] Comment on above: Order Comment: Speci men Type: BLOOD SPECIMEN Ordering Facility: [facility] Address: [address] [place] [address] Performed By: #### 2 4320-2, , 2776-08 #### [facility] CLIA [id number] [address] [place] [address] [place] Eosinophils/100 WBC (Bld) 3.0 % Normal [facility] Comment on above: Order Comment: Speci men Type: BLOOD SPECIMEN Ordering Facility: [facility] Address: [address] [place] [address] Performed By: #### 2 4321-2, , 2776-08 #### [facility] CLIA [id number] [address] [place] [address] [place] Erythrocyte distribution width (RBC) [Ratio] 14.0 % Normal 11.5-15.0 [facility] Comment on above: Order Comment: Speci men Type: BLOOD SPECIMEN Ordering Facility: [facility] Address: [address] [place] [address] Performed By: #### 2 4321-2, , 2776-08 #### [facility] CLIA [id number] [address] [place] [address] [place] Hematocrit (Bld) [Volume fraction] 36.5 % Low 39.0-51.0 [facility] Comment on above: Order Comment: Speci men Type: BLOOD SPECIMEN Ordering Facility: [facility] Address: [address] [place] [address] Performed By: #### 2 4321-2, , 2776-08 #### [facility] CLIA [id number] [address] [place] [address] [place] Hemoglobin (Bld) [Mass/Vol] 11.2 g/dL Low 13.0-17.0 [facility] Comment on above: Order Comment: Speci men Type: BLOOD SPECIMEN Ordering Facility: [facility] Address: [address] [place] [address] Performed By: #### 2 4321-2, , 2776-08 #### [facility] CLIA [id number] [address] [place] [address] [place] Immature granulocytes (Bld) [#/Vol] 0.10 10*3/uL High <0.10 [facility] Comment on above: Order Comment: Speci men Type: BLOOD SPECIMEN Ordering Facility: [facility] Address: [address] [place] [address] Performed By: #### 2 4321-2, , 2776-08 #### [facility] CLIA [id number] [address] [place] [address] [place] Immature granulocytes/100 WBC (Bld) 1.3 % Normal [facility] Comment on above: Order Comment: Speci men Type: BLOOD SPECIMEN Ordering Facility: [facility] Address: [address] [place] [address] Performed By: #### 2 4321-2, , 2776-08 #### [facility] CLIA [id number] [address] [place] [address] [place] Lymphocytes (Bld) [#/Vol] 1.78 10*3/uL Normal 1.00-4.00 [facility] Comment on above: Order Comment: Speci men Type: BLOOD SPECIMEN Ordering Facility: [facility] Address: [address] [place] [address] Performed By: #### 2 432-2, , 2776-08 #### [facility] CLIA [id number] [address] [place] [address] [place] Lymphocytes/100 WBC (Bld) 22.3 % Normal [facility] Comment on above: Order Comment: Speci men Type: BLOOD SPECIMEN Ordering Facility: [facility] Address: [address] [place] [address] Performed By: #### 2 432-2, , 2776-08 #### [facility] CLIA [id number] [address] [place] [address] [place] MCH (RBC) [Entitic mass] 26.2 pg Normal 26.0-34.0 [facility] Comment on above: Order Comment: Speci men Type: BLOOD SPECIMEN Ordering Facility: [facility] Address: [address] [place] [address] Performed By: #### 2 4321-2, , 2776-08 #### [facility] CLIA [id number] [address] [place] [address] [place] MCHC (RBC) [Mass/Vol] 30.7 g/dL Normal 30.5-36.0 [facility] Comment on above: Order Comment: Speci men Type: BLOOD SPECIMEN Ordering Facility: [facility] Address: [address] [place] [address] Performed By: #### 2 4321-2, , 2776-08 #### [facility] CLIA [id number] [address] [place] [address] [place] MCV (RBC) [Entitic vol] 85.5 fL Normal 80.0-100.0 [facility] Comment on above: Order Comment: Speci men Type: BLOOD SPECIMEN Ordering Facility: [facility] Address: [address] [place] [address] Performed By: #### 2 4321-2, , 2776-08 #### [facility] CLIA [id number] [address] [place] [address] [place] Monocytes (Bld) [#/Vol] 0.58 10*3/uL Normal <0.87 [facility] Comment on above: Order Comment: Speci men Type: BLOOD SPECIMEN Ordering Facility: [facility] Address: [address] [place] [address] Performed By: #### 2 4321-2, , 2776-08 #### [facility] CLIA [id number] [address] [place] [address] [place] Monocytes/100 WBC (Bld) 7.3 % Normal [facility] Comment on above: Order Comment: Speci men Type: BLOOD SPECIMEN Ordering Facility: [facility] Address: [address] [place] [address] Performed By: #### 2 4321-2, , 2776-08 #### [facility] CLIA [id number] [address] [place] [address] [place] Neutrophils (Bld) [#/Vol] 5.24 10*3/uL Normal 1.45-7.50 [facility] Comment on above: Order Comment: Speci men Type: BLOOD SPECIMEN Ordering Facility: [facility] Address: [address] [place] [address] Performed By: #### 2 4321-2, , 2776-08 #### [facility] CLIA [id number] [address] [place] [address] [place] Neutrophils/100 WBC (Bld) 65.6 % Normal [facility] Comment on above: Order Comment: Speci men Type: BLOOD SPECIMEN Ordering Facility: [facility] Address: [address] [place] [address] Performed By: #### 2 4321-2, , 2776-08 #### [facility] CLIA [id number] [address] [place] [address] [place] Nucleated RBC (Bld) [#/Vol] 10*3/uL Normal <0.01 [facility] Comment on above: Order Comment: Speci men Type: BLOOD SPECIMEN Ordering Facility: [facility] Address: [address] [place] [address] Performed By: #### 2 4321-2, , 2776-08 #### [facility] CLIA [id number] [address] [place] [address] [place] Nucleated RBC/100 WBC (Bld) [Ratio] 0.0 /100 WBC Normal [facility] Comment on above: Order Comment: Speci men Type: BLOOD SPECIMEN Ordering Facility: [facility] Address: [address] [place] [address] Performed By: #### 2 4321-2, , 2776-08 #### [facility] CLIA [id number] [address] [place] [address] [place] Platelet mean volume (Bld) [Entitic vol] 9.7 fL Normal 9.0-12.7 [facility] Comment on above: Order Comment: Speci men Type: BLOOD SPECIMEN Ordering Facility: [facility] Address: [address] [place] [address] Performed By: #### 2 4321-2, , 2776-08 #### [facility] CLIA [id number] [address] [place] [address] [place] Platelets (Bld) [#/Vol] 199 10*3/uL Normal 150-400 [facility] Comment on above: Order Comment: Speci men Type: BLOOD SPECIMEN Ordering Facility: [facility] Address: [address] [place] [address] Performed By: #### 2 4321-2, , 2776-08 #### [facility] CLIA [id number] [address] [place] [address] [place] RBC (Bld) [#/Vol] 4.27 10*6/uL Normal 4.20-6.00 [facility] Comment on above: Order Comment: Speci men Type: BLOOD SPECIMEN Ordering Facility: [facility] Address: [address] [place] [address] Performed By: #### 2 4321-2, , 2776-08 #### [facility] CLIA [id number] [address] [place] [address] [place] WBC (Bld) [#/Vol] 7.98 10*3/uL Normal 3.70-11.00 [facility] Comment on above: Order Comment: Speci men Type: BLOOD SPECIMEN Ordering Facility: [facility] Address: [address] [place] [address] Performed By: #### 2 4321-2, , 2776-08 #### [facility] CLIA [id number] [address] [place], [place] [address] [place] Magnesium SerPl-ncon 11-01 Magnesium [Mass/Vol] 2.3 mg/dL Normal 1.7-2.3 [facility] Comment on above: Order Comment: Speci men Type: BLOOD SPECIMEN Ordering Facility: [facility] Address: [address] [place] [address] Performed By: #### 2 777-1, 60372-0, 32186-5 #### [facility] CLIA [id number] [address] [place] [address] [place] Phosphate SerPl-mCncon 11-01 Phosphate [Mass/Vol] 2.6 mg/dL Low 2.7-4.8 [facility] Comment on above: Order Comment: Speci men Type: BLOOD SPECIMEN Ordering Facility: [facility] Address: [address] [place] [address] Performed By: #### 2 777-1, 39095-2, 05985-8 #### [facility] CLIA [id number] [address] [place] [address] [place] XR ABDOMEN 1V SPECIFYon 10-18 XR ABDOMEN 1V SPECIFY * * *Final Report* * * DATE OF EXAM: Nov 02 2023 11:46AM VALERIE 5288 - XR ABDOMEN 1V SPECIFY / PROCEDURE REASON: Bowel obstruction suspected * * * * Physician Interpretation * * * * ABDOMEN, 1 VIEW 11/02/2023 CLINICAL INFORMATION: Bowel obstruction suspected. TECHNIQUE: Supine frontal view, 2 image(s) COMPARISON: Abdominal radiograph 10/31/2023 RESULT: See impression. IMPRESSION: Lines, tubes, and devices: Bowel: Persistent although decreased colonic gaseous distention since prior radiograph 10/31/2023. The sigmoid colon measures up to 8 cm (previously 10 cm) and splenic flexure up to 6 cm (previously 7 cm). Resolution of prior gastric gaseous distention. No dilated small bowel. Findings suggestive of improving ileus. Site Planner: PSCShayna Transcribe Date/Time: Nov 02 2023 11:50A Dictated by : VERONICA CARTER MD This examination was interpreted and the report reviewed and electronically signed by: VERONICA CARTER MD on Nov 02 2023 11:52AM EST [id number] Normal [facility] Basic metabolic 2000 panelon 11-01-2023 Anion gap [Moles/Vol] 10 mmol/L Normal 9-18 [facility] Comment on above: Order Comment: Speci men Type: BLOOD SPECIMEN Ordering Facility: [facility] Address: [address] [place] [address] Performed By: #### 5 7021-8 #### [facility] CLIA [id number] [address] [place] [address] [place] Calcium [Mass/Vol] 7.9 mg/dL Low 8.5-10.2 [facility] Comment on above: Order Comment: Speci men Type: BLOOD SPECIMEN Ordering Facility: [facility] Address: [address] [place] [address] Performed By: #### 5 7021-8 #### [facility] CLIA [id number] [address] [place] [address] [place] Chloride [Moles/Vol] 114 mmol/L High 97-105 [facility] Comment on above: Order Comment: Speci men Type: BLOOD SPECIMEN Ordering Facility: [facility] Address: [address] [place] [address] Performed By: #### 5 7021-8 #### [facility] CLIA [id number] [address] [place] [address] [place] CO2 [Moles/Vol] 22 mmol/L Normal 22-30 [facility] Comment on above: Order Comment: Speci men Type: BLOOD SPECIMEN Ordering Facility: [facility] Address: [address] [place] [address] Performed By: #### 5 7021-8 #### [facility] CLIA [id number] [address] [place] [address] [place] Creatinine [Mass/Vol] 0.74 mg/dL Normal 0.73-1.22 [facility] Comment on above: Order Comment: Speci men Type: BLOOD SPECIMEN Ordering Facility: [facility] Address: [address] [place] [address] Performed By: #### 5 7021-8 #### [facility] CLIA [id number] [address] [place] [address] [place] Creatinine and Glomerular filtration rate.predicted panel (S/P/Bld) 124 mL/min/1.73m??? Normal >=60 [facility] Comment on above: Order Comment: Sana zuñiga Type: BLOOD SPECIMEN Ordering Facility: [facility] Address: [address] [place] [address] Result Comment: Lor mated Glomerular Filtration Rate (eGFR) is calculated using the 2020 CKD-EPI creatinine equation. This equation utilizes serum creatinine, sex, and age as parameters. The creatinine assay has traceable calibration to isotope dilution-mass spectrometry. Refer to KDIGO guidelines for clinical interpretation. In patients with unstable renal function, e.g. those with acute kidney injury, the eGFR may not accurately reflect actual GFR. Performed By: #### 5 7021-8 #### [facility] CLIA [id number] [address] [place] [address] [place] Glucose [Mass/Vol] 98 mg/dL Normal 74-99 [facility] Comment on above: Order Comment: Sana zuñiga Type: BLOOD SPECIMEN Ordering Facility: [facility] Address: [address] [place] [address] Result Comment: The [place] [employer] (ADA) provides guidance for cutoff values for fasting glucose and random glucose. The ADA defines fasting as no caloric intake for at least 8 hours. Fasting plasma glucose results between 100 to 125 mg/dL indicate increased risk for diabetes (prediabetes). Fasting plasma glucose results greater than or equal to 126 mg/dL meet the criteria for diagnosis of diabetes. In the absence of unequivocal hyperglycemia, results should be confirmed by repeat testing. In a patient with classic symptoms of hyperglycemia or hyperglycemic crisis, random plasma glucose results greater than or equal to 200 mg/dL meet the criteria for diagnosis of diabetes. Reference: Standards of Medical Care in Diabetes 2016, [place] [employer]. Diabetes Care. 2016.39(Suppl 1). Performed By: #### 5 7021-8 #### [facility] CLIA [id number] [address] [place] [address] [place] Potassium [Moles/Vol] 3.9 mmol/L Normal 3.7-5.1 [facility] Comment on above: Order Comment: Speci men Type: BLOOD SPECIMEN Ordering Facility: [facility] Address: [address] [place] [address] Performed By: #### 5 7021-8 #### [facility] CLIA [id number] [address] [place] [address] [place] Sodium [Moles/Vol] 146 mmol/L High 136-144 [facility] Comment on above: Order Comment: Speci men Type: BLOOD SPECIMEN Ordering Facility: [facility] Address: [address] [place] [address] Performed By: #### 5 7021-8 #### [facility] CLIA [id number] [address] [place] [address] [place] Urea nitrogen [Mass/Vol] 9 mg/dL Normal 9-24 [facility] Comment on above: Order Comment: Speci men Type: BLOOD SPECIMEN Ordering Facility: [facility] Address: [address] [place] [address] Performed By: #### 5 7021-8 #### [facility] CLIA [id number] [address] [place] [address] [place] CBC W Auto Differential pane l (Bld)on 11-01-2023 Basophils (Bld) [#/Vol] 10*3/uL Normal <0.11 [facility] Comment on above: Order Comment: Speci men Type: BLOOD SPECIMENOrdering Facility: [facility] Address: [address] [place] [place] [address] Performed By: #### 5 7021-8 ####[facility]IA [id number] [place] [address] [place] Basophils/100 WBC (Bld) 0.3 % Normal [facility] Comment on above: Order Comment: Speci men Type: BLOOD SPECIMENOrdering Facility: [facility] Address: [address] [place] [address] Performed By: #### 5 7021-8 ####[facility] [id number] [place] [address] [place] Differential cell count method Nom (Bld) Auto Normal [facility] Comment on above: Order Comment: Speci men Type: BLOOD SPECIMENOrdering Facility: [facility] Address: [address] [place] [address] Performed By: #### 5 7021-8 ####[facility] [id number] [place] [address] [place] Eosinophils (Bld) [#/Vol] 0.23 10*3/uL Normal <0.46 [facility] Comment on above: Order Comment: Speci men Type: BLOOD SPECIMENOrdering Facility: [facility] Address: [address] [place] [address] Performed By: #### 5 7021-8 ####[facility] [id number] [place] [address] [place] Eosinophils/100 WBC (Bld) 3.0 % Normal [facility] Comment on above: Order Comment: Speci men Type: BLOOD SPECIMENOrdering Facility: [facility] Address: [address] [place] [address] Performed By: #### 5 7021-8 ####[facility] [id number] [place] [address] [place] Erythrocyte distribution width (RBC) [Ratio] 14.6 % Normal 11.5-15.0 [facility] Comment on above: Order Comment: Speci men Type: BLOOD SPECIMENOrdering Facility: [facility] Address: [address] [place] [address] Performed By: #### 5 7021-8 ####[facility]CL[facility] [id number] [place] [address] [place] Hematocrit (Bld) [Volume fraction] 28.6 % Low 39.0-51.0 [facility] Comment on above: Order Comment: Speci men Type: BLOOD SPECIMENOrdering Facility: [facility] Address: [address] [place] [address] Performed By: #### 5 7021-8 ####[facility] LABIA [id number] [place] [address] [place] Hemoglobin (Bld) [Mass/Vol] 9.0 g/dL Low 13.0-17.0 [facility] Comment on above: Order Comment: Speci men Type: BLOOD SPECIMENOrdering Facility: [facility] Address: [address] [place] [address] Performed By: #### 5 7021-8 ####[facility] LABIA [id number] [place] [address] [place] Immature granulocytes (Bld) [#/Vol] 0.05 10*3/uL Normal <0.10 [facility] Comment on above: Order Comment: Speci men Type: BLOOD SPECIMENOrdering Facility: [facility] Address: [address] [place] [address] Performed By: #### 5 7021-8 ####[facility] LABIA [id number] [place] [address] [place] Immature granulocytes/100 WBC (Bld) 0.7 % Normal [facility] Comment on above: Order Comment: Speci men Type: BLOOD SPECIMENOrdering Facility: [facility] Address: [address] [place] [address] Performed By: #### 5 7021-8 ####[facility] LABIA [id number] [place] [address] [place] Lymphocytes (Bld) [#/Vol] 1.86 10*3/uL Normal 1.00-4.00 [facility] Comment on above: Order Comment: Speci men Type: BLOOD SPECIMENOrdering Facility: [facility] Address: [address] [place] [address] Performed By: #### 5 7021-8 ####[facility]CL[facility] [id number] [place] [address] [place] Lymphocytes/100 WBC (Bld) 24.3 % Normal [facility] Comment on above: Order Comment: Speci men Type: BLOOD SPECIMENOrdering Facility: [facility] Address: [address] [place] [address] Performed By: #### 5 7021-8 ####[facility] LABIA [id number] [place] [address] [place] MCH (RBC) [Entitic mass] 26.8 pg Normal 26.0-34.0 [facility] Comment on above: Order Comment: Speci men Type: BLOOD SPECIMENOrdering Facility: [facility] Address: [address] [place] [address] Performed By: #### 5 7021-8 ####[facility] LABIA [id number] [place] [address] [place] MCHC (RBC) [Mass/Vol] 31.5 g/dL Normal 30.5-36.0 [facility] Comment on above: Order Comment: Speci men Type: BLOOD SPECIMENOrdering Facility: [facility] Address: [address] [place] [address] Performed By: #### 5 7021-8 ####[facility] LABIA [id number] [place] [address] [place] MCV (RBC) [Entitic vol] 85.1 fL Normal 80.0-100.0 [facility] Comment on above: Order Comment: Speci men Type: BLOOD SPECIMENOrdering Facility: [facility] Address: [address] [place] [address] Performed By: #### 5 7021-8 ####[facility]CLIA [id number] [place] [address] [place] Monocytes (Bld) [#/Vol] 0.62 10*3/uL Normal <0.87 [facility] Comment on above: Order Comment: Speci men Type: BLOOD SPECIMENOrdering Facility: [facility] Address: [address] [place] [address] Performed By: #### 5 7021-8 ####[facility]CLIA [id number] [place] [address] [place] Monocytes/100 WBC (Bld) 8.1 % Normal [facility] Comment on above: Order Comment: Speci men Type: BLOOD SPECIMENOrdering Facility: [facility] Address: [address] [place] [address] Performed By: #### 5 7021-8 ####[facility]CLIA [id number] [place] [address] [place] Neutrophils (Bld) [#/Vol] 4.87 10*3/uL Normal 1.45-7.50 [facility] Comment on above: Order Comment: Speci men Type: BLOOD SPECIMENOrdering Facility: [facility] Address: [address] [place] [address] Performed By: #### 5 7021-8 ####[facility]CLIA [id number] [place] [address] [place] Neutrophils/100 WBC (Bld) 63.6 % Normal [facility] Comment on above: Order Comment: Speci men Type: BLOOD SPECIMENOrdering Facility: [facility] Address: [address] [place] [address] Performed By: #### 5 7021-8 ####[facility]CLIA [id number] [place] [address] [place] Nucleated RBC (Bld) [#/Vol] 10*3/uL Normal <0.01 [facility] Comment on above: Order Comment: Speci men Type: BLOOD SPECIMENOrdering Facility: [facility] Address: [address] [place] [address] Performed By: #### 5 7021-8 ####[facility]CLIA [id number] [place] [address] [place] Nucleated RBC/100 WBC (Bld) [Ratio] 0.0 /100 WBC Normal [facility] Comment on above: Order Comment: Speci men Type: BLOOD SPECIMENOrdering Facility: [facility] Address: [address] [place] [address] Performed By: #### 5 7021-8 ####[facility]CLIA [id number] [place] [address] [place] Platelet mean volume (Bld) [Entitic vol] 9.6 fL Normal 9.0-12.7 [facility] Comment on above: Order Comment: Speci men Type: BLOOD SPECIMENOrdering Facility: [facility] Address: [address] [place] [address] Performed By: #### 5 7021-8 ####[facility] LABIA [id number] [place] [address] [place] Platelets (Bld) [#/Vol] 148 10*3/uL Low 150-400 [facility] Comment on above: Order Comment: Speci men Type: BLOOD SPECIMENOrdering Facility: [facility] Address: [address] [place] [address] Performed By: #### 5 7021-8 ####[facility]CLIA [id number] [place] [address] [place] RBC (Bld) [#/Vol] 3.36 10*6/uL Low 4.20-6.00 [facility] Comment on above: Order Comment: Speci men Type: BLOOD SPECIMENOrdering Facility: [facility] Address: [address] [place] [address] Performed By: #### 5 7021-8 ####[facility]CLIA [id number] [place] [address] [place] WBC (Bld) [#/Vol] 7.65 10*3/uL Normal 3.70-11.00 [facility] Comment on above: Order Comment: Speci men Type: BLOOD SPECIMENOrdering Facility: [facility] Address: [address] [place] [address] Performed By: #### 5 7021-8 ####[facility]CLIA [id number] [place] [address] [place] Magnesium SerPl-mCncon 10-31 Magnesium [Mass/Vol] 2.4 mg/dL High 1.7-2.3 [facility] Comment on above: Order Comment: Speci men Type: BLOOD SPECIMEN [facility] Address: [address] [place] [address] Performed By: #### 5 7021-8 #### [facility] CLIA [id number] [address] [place] [address] [place] Phosphate SerPl-mCncon 10-31 Phosphate [Mass/Vol] 2.3 mg/dL Low 2.7-4.8 [facility] Comment on above: Order Comment: Speci men Type: BLOOD SPECIMEN [facility] Address: [address] [place] [address] Performed By: #### 5 7021-8 #### [facility] CLIA [id number] [address] [place] [address] [place] Basic metabolic 2000 panelon 10-31-2023 Anion gap [Moles/Vol] 10 mmol/L Normal 9-18 [facility] Comment on above: Order Comment: Speci men Type: BLOOD SPECIMEN [facility] Address: [address] [place] [address] Performed By: #### 2 777-1, 02858-4, #### [facility] CLIA [id number] [address] [place] [address] [place] Calcium [Mass/Vol] 7.8 mg/dL Low 8.5-10.2 [facility] Comment on above: Order Comment: Speci men Type: BLOOD SPECIMEN [facility] Address: [address] [place] [address] Performed By: #### 2 777-1, 27347-3, #### [facility] CLIA [id number] [address] [place] [address] [place] Chloride [Moles/Vol] 115 mmol/L High 97-105 [facility] Comment on above: Order Comment: Speci men Type: BLOOD SPECIMEN [facility] Address: [address] [place] [address] Performed By: #### 2 777-1, 55106-0, #### [facility] CLIA [id number] [address] [place] [address] [place] CO2 [Moles/Vol] 23 mmol/L Normal 22-30 [facility] Comment on above: Order Comment: Speci men Type: BLOOD SPECIMEN [facility] Address: [address] [place] [address] Performed By: #### 2 777-1, 73608-7, #### [facility] CLIA [id number] [address] [place] [address] [place] Creatinine [Mass/Vol] 0.72 mg/dL Low 0.73-1.22 [facility] Comment on above: Order Comment: Speci men Type: BLOOD SPECIMEN [facility] Address: [address] [place] [address] Performed By: #### 2 777-1, 32251-6, #### [facility] CLIA [id number] [address] [place] [address] [place] Creatinine and Glomerular filtration rate.predicted panel (S/P/Bld) 125 mL/min/1.73m??? Normal >=60 [facility] Comment on above: Order Comment: Sana zuñiga Type: BLOOD SPECIMEN [facility] Address: [address] [place] [address] Result Comment: Lor mated Glomerular Filtration Rate (eGFR) is calculated using the 2020 CKD-EPI creatinine equation. This equation utilizes serum creatinine, sex, and age as parameters. The creatinine assay has traceable calibration to isotope dilution-mass spectrometry. Refer to KDIGO guidelines for clinical interpretation. In patients with unstable renal function, e.g. those with acute kidney injury, the eGFR may not accurately reflect actual GFR. Performed By: #### 2 777-1, 61381-5, #### [facility] CLIA [id number] [address] [place] [address] [place] Glucose [Mass/Vol] 93 mg/dL Normal 74-99 [facility] Comment on above: Order Comment: Sana zuñiga Type: BLOOD SPECIMEN [facility] Address: [address] [place] [address] Result Comment: The [place] [employer] (ADA) provides guidance for cutoff values for fasting glucose and random glucose. The ADA defines fasting as no caloric intake for at least 8 hours. Fasting plasma glucose results between 100 to 125 mg/dL indicate increased risk for diabetes (prediabetes). Fasting plasma glucose results greater than or equal to 126 mg/dL meet the criteria for diagnosis of diabetes. In the absence of unequivocal hyperglycemia, results should be confirmed by repeat testing. In a patient with classic symptoms of hyperglycemia or hyperglycemic crisis, random plasma glucose results greater than or equal to 200 mg/dL meet the criteria for diagnosis of diabetes. Reference: Standards of Medical Care in Diabetes 2016, [place] [employer]. Diabetes Care. 2016.39(Suppl 1). Performed By: #### 2 777-1, 14945-6, #### [facility] CLIA [id number] [address] [place] [address] [place] Potassium [Moles/Vol] 3.9 mmol/L Normal 3.7-5.1 [facility] Comment on above: Order Comment: Speci men Type: BLOOD SPECIMEN [facility] Address: [address] [place] [address] Performed By: #### 2 777-1, 46793-2, #### [facility] CLIA [id number] [address] [place] [address] [place] Sodium [Moles/Vol] 148 mmol/L High 136-144 [facility] Comment on above: Order Comment: Speci men Type: BLOOD SPECIMEN [facility] Address: [address] [place] [address] Performed By: #### 2 777-1, 56677-5, #### [facility] CLIA [id number] [address] [place] [address] [place] Urea nitrogen [Mass/Vol] 8 mg/dL Low 9-24 [facility] Comment on above: Order Comment: Speci men Type: BLOOD SPECIMEN [facility] Address: [address] [place] [address] Performed By: #### 2 777-1, 49607-7, #### [facility] CLIA [id number] [address] [place] [address] [place] CBC W Auto Differential pane l (Bld)on 10-31-2023 Basophils (Bld) [#/Vol] 10*3/uL Normal <0.11 [facility] Comment on above: Order Comment: Speci men Type: BLOOD SPECIMEN [facility] Address: [address] [place] [address] Performed By: #### 5 7021-8 #### [facility] CLIA [id number] [address] [place] [address] [place] Basophils/100 WBC (Bld) 0.2 % Normal [facility] Comment on above: Order Comment: Speci men Type: BLOOD SPECIMEN [facility] Address: [address] [place] [address] Performed By: #### 5 7021-8 #### [facility] CLIA [id number] [address] [place] [address] [place] Differential cell count method Nom (Bld) Auto Normal [facility] Comment on above: Order Comment: Speci men Type: BLOOD SPECIMEN [facility] Address: [address] [place] [address] Performed By: #### 5 7021-8 #### [facility] CLIA [id number] [address] [place] [address] [place] Eosinophils (Bld) [#/Vol] 0.18 10*3/uL Normal <0.46 [facility] Comment on above: Order Comment: Speci men Type: BLOOD SPECIMEN [facility] Address: [address] [place] [address] Performed By: #### 5 7021-8 #### [facility] CLIA [id number] [address] [place] [address] [place] Eosinophils/100 WBC (Bld) 1.9 % Normal [facility] Comment on above: Order Comment: Speci men Type: BLOOD SPECIMEN [facility] Address: [address] [place] [address] Performed By: #### 5 7021-8 #### [facility] CLIA [id number] [address] [place] [address] [place] Erythrocyte distribution width (RBC) [Ratio] 14.5 % Normal 11.5-15.0 [facility] Comment on above: Order Comment: Speci men Type: BLOOD SPECIMEN [facility] Address: [address] [place] [address] Performed By: #### 5 7021-8 #### [facility] CLIA [id number] [address] [place] [address] [place] Hematocrit (Bld) [Volume fraction] 30.2 % Low 39.0-51.0 [facility] Comment on above: Order Comment: Speci men Type: BLOOD SPECIMEN [facility] Address: [address] [place] [address] Performed By: #### 5 7021-8 #### [facility] CLIA [id number] [address] [place] [address] [place] Hemoglobin (Bld) [Mass/Vol] 9.4 g/dL Low 13.0-17.0 [facility] Comment on above: Order Comment: Speci men Type: BLOOD SPECIMEN [facility] Address: [address] [place] [address] Performed By: #### 5 7021-8 #### [facility] CLIA [id number] [address] [place] [address] [place] Immature granulocytes (Bld) [#/Vol] 0.06 10*3/uL Normal <0.10 [facility] Comment on above: Order Comment: Speci men Type: BLOOD SPECIMEN [facility] Address: [address] [place] [address] Performed By: #### 5 7021-8 #### [facility] CLIA [id number] [address] [place] [address] [place] Immature granulocytes/100 WBC (Bld) 0.6 % Normal [facility] Comment on above: Order Comment: Speci men Type: BLOOD SPECIMEN [facility] Address: [address] [place] [address] Performed By: #### 5 7021-8 #### [facility] CLIA [id number] [address] [place] [address] [place] Lymphocytes (Bld) [#/Vol] 1.61 10*3/uL Normal 1.00-4.00 [facility] Comment on above: Order Comment: Speci men Type: BLOOD SPECIMEN [facility] Address: [address] [place] [address] Performed By: #### 5 7021-8 #### [facility] CLIA [id number] [address] [place] [address] [place] Lymphocytes/100 WBC (Bld) 16.8 % Normal [facility] Comment on above: Order Comment: Speci men Type: BLOOD SPECIMEN [facility] Address: [address] [place] [address] Performed By: #### 5 7021-8 #### [facility] CLIA [id number] [address] [place] [address] [place] MCH (RBC) [Entitic mass] 26.5 pg Normal 26.0-34.0 [facility] Comment on above: Order Comment: Speci men Type: BLOOD SPECIMEN [facility] Address: [address] [place] [address] Performed By: #### 5 7021-8 #### [facility] CLIA [id number] [address] [place] [address] [place] MCHC (RBC) [Mass/Vol] 31.1 g/dL Normal 30.5-36.0 [facility] Comment on above: Order Comment: Speci men Type: BLOOD SPECIMEN [facility] Address: [address] [place] [address] Performed By: #### 5 7021-8 #### [facility] CLIA [id number] [address] [place] [address] [place] MCV (RBC) [Entitic vol] 85.1 fL Normal 80.0-100.0 [facility] Comment on above: Order Comment: Speci men Type: BLOOD SPECIMEN [facility] Address: [address] [place] [address] Performed By: #### 5 7021-8 #### [facility] CLIA [id number] [address] [place] [address] [place] Monocytes (Bld) [#/Vol] 0.88 10*3/uL High <0.87 [facility] Comment on above: Order Comment: Speci men Type: BLOOD SPECIMEN [facility] Address: [address] [place] [address] Performed By: #### 5 7021-8 #### [facility] CLIA [id number] [address] [place] [address] [place] Monocytes/100 WBC (Bld) 9.2 % Normal [facility] Comment on above: Order Comment: Speci men Type: BLOOD SPECIMEN [facility] Address: [address] [place] [address] Performed By: #### 5 7021-8 #### [facility] CLIA [id number] [address] [place] [address] [place] Neutrophils (Bld) [#/Vol] 6.84 10*3/uL Normal 1.45-7.50 [facility] Comment on above: Order Comment: Speci men Type: BLOOD SPECIMEN [facility] Address: [address] [place] [address] Performed By: #### 5 7021-8 #### [facility] CLIA [id number] [address] [place] [address] [place] Neutrophils/100 WBC (Bld) 71.3 % Normal [facility] Comment on above: Order Comment: Speci men Type: BLOOD SPECIMEN [facility] Address: [address] [place] [address] Performed By: #### 5 7021-8 #### [facility] CLIA [id number] [address] [place] [address] [place] Nucleated RBC (Bld) [#/Vol] 10*3/uL Normal <0.01 [facility] Comment on above: Order Comment: Speci men Type: BLOOD SPECIMEN [facility] Address: [address] [place] [address] Performed By: #### 5 7021-8 #### [facility] CLIA [id number] [address] [place] [address] [place] Nucleated RBC/100 WBC (Bld) [Ratio] 0.0 /100 WBC Normal [facility] Comment on above: Order Comment: Speci men Type: BLOOD SPECIMEN [facility] Address: [address] [place] [address] Performed By: #### 5 7021-8 #### [facility] CLIA [id number] [address] [place] [address] [place] Platelet mean volume (Bld) [Entitic vol] 9.8 fL Normal 9.0-12.7 [facility] Comment on above: Order Comment: Speci men Type: BLOOD SPECIMEN [facility] Address: [address] [place] [address] Performed By: #### 5 7021-8 #### [facility] CLIA [id number] [address] [place] [address] [place] Platelets (Bld) [#/Vol] 144 10*3/uL Low 150-400 [facility] Comment on above: Order Comment: Speci men Type: BLOOD SPECIMEN [facility] Address: [address] [place] [address] Result Comment: Resu lts checked and verified.No clot detected. Performed By: #### 5 7021-8 #### [facility] CLIA [id number] [address] [place] [address] [place] RBC (Bld) [#/Vol] 3.55 10*6/uL Low 4.20-6.00 [facility] Comment on above: Order Comment: Speci men Type: BLOOD SPECIMEN [facility] Address: [address] [place] [address] Performed By: #### 5 7021-8 #### [facility] CLIA [id number] [address] [place] [address] [place] WBC (Bld) [#/Vol] 9.59 10*3/uL Normal 3.70-11.00 [facility] Comment on above: Order Comment: Speci men Type: BLOOD SPECIMEN [facility] Address: [address] [place] [address] Performed By: #### 5 7021-8 #### [facility] CLIA [id number] [address] [place] [address] [place] CBC panel Auto (Bld)on 10-30 Erythrocyte distribution width (RBC) [Ratio] 14.5 % Normal 11.5-15.0 [facility] Comment on above: Order Comment: Speci men Type: BLOOD SPECIMEN [facility] Address: [address] [place] [address] Performed By: #### 5 7021-8 #### [facility] CLIA [id number] [address] [place] [place] [address] [place] Hematocrit (Bld) [Volume fraction] 28.6 % Low 39.0-51.0 [facility] Comment on above: Order Comment: Speci men Type: BLOOD SPECIMEN Ordering Facility: [facility] Address: [address] [place] [address] Performed By: #### 5 7021-8 #### [facility] CLIA [id number] [address] [place] [address] [place] Hemoglobin (Bld) [Mass/Vol] 9.1 g/dL Low 13.0-17.0 [facility] Comment on above: Order Comment: Speci men Type: BLOOD SPECIMEN Ordering Facility: [facility] Address: [address] [place] [address] Performed By: #### 5 7021-8 #### [facility] CLIA [id number] [address] [place] [address] [place] MCH (RBC) [Entitic mass] 27.1 pg Normal 26.0-34.0 [facility] Comment on above: Order Comment: Speci men Type: BLOOD SPECIMEN Ordering Facility: [facility] Address: [address] [place] [address] Performed By: #### 5 7021-8 #### [facility] CLIA [id number] [address] [place] [address] [place] MCHC (RBC) [Mass/Vol] 31.8 g/dL Normal 30.5-36.0 [facility] Comment on above: Order Comment: Speci men Type: BLOOD SPECIMEN Ordering Facility: [facility] Address: [address] [place] [address] Performed By: #### 5 7021-8 #### [facility] CLIA [id number] [address] [place] [address] [place] MCV (RBC) [Entitic vol] 85.1 fL Normal 80.0-100.0 [facility] Comment on above: Order Comment: Speci men Type: BLOOD SPECIMEN Ordering Facility: [facility] Address: [address] [place] [address] Performed By: #### 5 7021-8 #### [facility] CLIA [id number] [address] [place] [address] [place] Nucleated RBC (Bld) [#/Vol] 10*3/uL Normal <0.01 [facility] Comment on above: Order Comment: Speci men Type: BLOOD SPECIMEN Ordering Facility: [facility] Address: [address] [place] [address] Performed By: #### 5 7021-8 #### [facility] CLIA [id number] [address] [place] [address] [place] Platelet mean volume (Bld) [Entitic vol] 10.1 fL Normal 9.0-12.7 [facility] Comment on above: Order Comment: Speci men Type: BLOOD SPECIMEN Ordering Facility: [facility] Address: [address] [place] [address] Performed By: #### 5 7021-8 #### [facility] CLIA [id number] [address] [place] [address] [place] Platelets (Bld) [#/Vol] 180 10*3/uL Normal 150-400 [facility] Comment on above: Order Comment: Speci men Type: BLOOD SPECIMEN Ordering Facility: [facility] Address: [address] [place] [address] Performed By: #### 5 7021-8 #### [facility] CLIA [id number] [address] [place] [address] [place] RBC (Bld) [#/Vol] 3.36 10*6/uL Low 4.20-6.00 [facility] Comment on above: Order Comment: Speci men Type: BLOOD SPECIMEN Ordering Facility: [facility] Address: [address] [place] [address] Performed By: #### 5 7021-8 #### [facility] CLIA [id number] [address] [place] [address] [place] WBC (Bld) [#/Vol] 10.06 10*3/uL Normal 3.70-11.00 [facility] Comment on above: Order Comment: Speci men Type: BLOOD SPECIMEN Ordering Facility: [facility] Address: [address] [place] [address] Performed By: #### 5 7021-8 #### [facility] CLIA [id number] [address] [facility] [place] [address] [place] CONSULT PROGon 10-31-2023 CONSULT PROG HNO ID: [id number] Author: HEAVEN CAMACHO MD Service: Urology Author Type: Resident Type: Consult Progress Note Filed: 10/31/2023 06:56 Note Text: [facility] UROLOGY PROGRESS NOTE Name: Johnny Devine Bed: H071 019/H071-19 Date: 10/31/2023 After Hours [facility] Urology Service Pager: [phone] ASSESSMENT AND PLAN Johnny Devine is a 33 year old male with history of non-verbal with developmental delay who is s/p from diagnostic lap for concern of bowel obstruction, transferred from OSH who developed AUR and phimosis 1 Day Post-Op s/p dorsal slit and urethral catheter placement. Interval: - Vital signs within normal limits, afebrile - No nausea or vomiting. - No chest pain or shortness of breath . - UOP 3.4L clear yellow urine in tubing - Creatinine at baseline Recommendations - Patient's penis examined this AM, healing well postoperatively, with glans visible with slight retraction - Recommend applying vaseline PRN to glans - Haskins catheter draining clear yellow urine with good urine output - Can use trospium 20mg BID PRN for bladder spasms from catheter - Overall haskins plan and care per primary team - Will arrange outpatient urology follow up - Remainder of cares per primary Discussed with second affiliate, Dr. Joseph Camacho MD Urology Resident [facility] Pager [phone] For weekend or after hours issues please page the on-call urology pager [phone] 10/31/2023 6:48 AM Subjective SUBJECTIVE - See interval above Objective Vital Signs BP 118/79 Pulse 75 Temp 37.4 ?C (99.3 ?F) (Axillary) Resp 18 Ht 172.7 cm (5' 8 ) Wt 93.2 kg (205 lb 7.5 oz) SpO2 96% BMI 31.24 kg/m? Body mass index is 31.24 kg/m?. Input and Output Intake/Output Summary (Last 24 hours) at 10/31/2023 0648 Last data filed at 10/31/2023 0528 Gross per 24 hour Intake 871 ml Output 3400 ml Net -2529 ml PHYSICAL EXAM BP 118/79 Pulse 75 Temp 37.4 ?C (99.3 ?F) (Axillary) Resp 18 Ht 172.7 cm (5' 8 ) Wt 93.2 kg (205 lb 7.5 oz) SpO2 96% BMI 31.24 kg/m? General: Patient in no acute distress, nonverbal HEENT: Non-traumatic, sclera anicteric, EOMI CV: Warm and well perfused Resp: Breathing comfortably on room air : edematous glans with meatus that is visible with dorsal slit incision well-healing, 10Fr haskins catheter draining clear yellow urine Neuro: Alert and Oriented x3 Recent Labs 10/30/23 0537 10/29/23 0252 10/28/23 1703 WBC 11.73* 14.09* 14.46* HB 9.8* 10.5* 12.0* HCT 31.1* 33.0* 38.3* PLT 138* 151 180 NA 149* 144 137 K 3.6* 3.8 3.9 CHLOR 113* 112* 110* CO2 24 21* 15* BUN 9 13 17 CREAT 0.69* 0.69* 0.72* GLUC 98 115* 116* Imaging All relevant recent imaging reviewed Normal [facility] Comprehensive metabolic 2000 panelon 10-31-2023 Albumin [Mass/Vol] 3.1 g/dL Low 3.9-4.9 [facility] Comment on above: Order Comment: Speci men Type: BLOOD SPECIMEN Ordering Facility: [facility] Address: [address] [place] [address] Performed By: #### 5 7021-8 #### [facility] CLIA [id number] [address] [place] [address] [place] ALP [Catalytic activity/Vol] 31 U/L Low 38-113 [facility] Comment on above: Order Comment: Speci men Type: BLOOD SPECIMEN Ordering Facility: [facility] Address: [address] [place] [address] Performed By: #### 5 7021-8 #### [facility] CLIA [id number] [address] [place] [address] [place] ALT [Catalytic activity/Vol] 6 U/L Low 10-54 [facility] Comment on above: Order Comment: Speci men Type: BLOOD SPECIMEN Ordering Facility: [facility] Address: [address] [place] [address] Performed By: #### 5 7021-8 #### [facility] CLIA [id number] [address] [place] [address] [place] Anion gap [Moles/Vol] 6 mmol/L Low 9-18 [facility] Comment on above: Order Comment: Speci men Type: BLOOD SPECIMEN Ordering Facility: [facility] Address: [address] [place] [address] Performed By: #### 5 7021-8 #### [facility] CLIA [id number] [address] [place] [address] [place] AST [Catalytic activity/Vol] 13 U/L Low 14-40 [facility] Comment on above: Order Comment: Speci men Type: BLOOD SPECIMEN Ordering Facility: [facility] Address: [address] [place] [address] Performed By: #### 5 7021-8 #### [facility] CLIA [id number] [address] [place] [address] [place] Bilirubin [Mass/Vol] mg/dL Low 0.2-1.3 [facility] Comment on above: Order Comment: Speci men Type: BLOOD SPECIMEN Ordering Facility: [facility] Address: [address] [place], [place] [address] Performed By: #### 5 7021-8 #### [facility] CLIA [id number] [address] [place] [address] [place] Calcium [Mass/Vol] 7.4 mg/dL Low 8.5-10.2 [facility] Comment on above: Order Comment: Speci men Type: BLOOD SPECIMEN Ordering Facility: [facility] Address: [address] [place] [address] Performed By: #### 5 7021-8 #### [facility] CLIA [id number] [address] [place] [address] [place] Chloride [Moles/Vol] 115 mmol/L High 97-105 [facility] Comment on above: Order Comment: Speci men Type: BLOOD SPECIMEN Ordering Facility: [facility] Address: [address] [place] [address] Performed By: #### 5 7021-8 #### [facility] CLIA [id number] [address] [place] [address] [place] CO2 [Moles/Vol] 26 mmol/L Normal 22-30 [facility] Comment on above: Order Comment: Speci men Type: BLOOD SPECIMEN Ordering Facility: [facility] Address: [address] [place] [address] Performed By: #### 5 7021-8 #### [facility] CLIA [id number] [address] [place] [address] [place] Creatinine [Mass/Vol] 0.73 mg/dL Normal 0.73-1.22 [facility] Comment on above: Order Comment: Speci men Type: BLOOD SPECIMEN Ordering Facility: [facility] Address: [address] [place] [address] Performed By: #### 5 7021-8 #### [facility] CLIA [id number] [address] [place] [address] [place] Creatinine and Glomerular filtration rate.predicted panel (S/P/Bld) 125 mL/min/1.73m??? Normal >=60 [facility] Comment on above: Order Comment: Speci men Type: BLOOD SPECIMEN Ordering Facility: [facility] Address: [address] [place] [address] Result Comment: Lor mated Glomerular Filtration Rate (eGFR) is calculated using the 2020 CKD-EPI creatinine equation. This equation utilizes serum creatinine, sex, and age as parameters. The creatinine assay has traceable calibration to isotope dilution-mass spectrometry. Refer to KDIGO guidelines for clinical interpretation. In patients with unstable renal function, e.g. those with acute kidney injury, the eGFR may not accurately reflect actual GFR. Performed By: #### 5 7021-8 #### [facility] CLIA [id number] [address] [place] [address] [place] Glucose [Mass/Vol] 103 mg/dL High 74-99 [facility] Comment on above: Order Comment: Sana zuñiga Type: BLOOD SPECIMEN Ordering Facility: [facility] Address: [address] [place] [address] Result Comment: The [place] Diabetes [employer] (ADA) provides guidance for cutoff values for fasting glucose and random glucose. The ADA defines fasting as no caloric intake for at least 8 hours. Fasting plasma glucose results between 100 to 125 mg/dL indicate increased risk for diabetes (prediabetes). Fasting plasma glucose results greater than or equal to 126 mg/dL meet the criteria for diagnosis of diabetes. In the absence of unequivocal hyperglycemia, results should be confirmed by repeat testing. In a patient with classic symptoms of hyperglycemia or hyperglycemic crisis, random plasma glucose results greater than or equal to 200 mg/dL meet the criteria for diagnosis of diabetes. Reference: Standards of Medical Care in Diabetes 2016, [place] [employer] Association. Diabetes Care. 2016.39(Suppl 1). Performed By: #### 5 7021-8 #### [facility] CLIA [id number] [address] [place] [address] [place] Potassium [Moles/Vol] 4.0 mmol/L Normal 3.7-5.1 [facility] Comment on above: Order Comment: Sana zuñiga Type: BLOOD SPECIMEN Ordering Facility: [facility] Address: [address] [place] [address] Performed By: #### 5 7021-8 #### [facility] CLIA [id number] [address] [place] [address] [place] Protein [Mass/Vol] 5.6 g/dL Low 6.3-8.0 [facility] Comment on above: Order Comment: Speci men Type: BLOOD SPECIMEN Ordering Facility: [facility] Address: [address] [place] [address] Performed By: #### 5 7021-8 #### [facility] CLIA [id number] [address] [place] [address] [place] Sodium [Moles/Vol] 147 mmol/L High 136-144 [facility] Comment on above: Order Comment: Speci men Type: BLOOD SPECIMEN Ordering Facility: [facility] Address: [address] [place] [address] Performed By: #### 5 7021-8 #### [facility] CLIA [id number] [address] [place] [address] [place] Urea nitrogen [Mass/Vol] 9 mg/dL Normal 9-24 [facility] Comment on above: Order Comment: Speci men Type: BLOOD SPECIMEN Ordering Facility: [facility] Address: [address] [place] [address] Performed By: #### 5 7021-8 #### [facility] CLIA [id number] [address] [place] [address] [place] [id number] 10-31-2023 ECG01 Ventricular Rate : 9 3 BPM Atrial Rate : 93 BPM P-R Interval : 146 ms QRS Duration : 90 ms Q-T Interval : 394 ms QTC Calculation(Bazett) : 489 ms Calculated P Bethel : 7 degrees Calculated R Bethel : 11 degrees Calculated T Bethel : -11 degrees NORMAL SINUS RHYTHM ANTEROLATERAL T WAVE ABNORMALITY BORDERLINE PROLONGED QTC ABNORMAL ECG Confirmed by TRENT BYRD MD ([id number]) on 11/06/2023 9:42:18 AM NAME : JOHNNY DEVINE PID : [id number] : 1990 Gender : Male Race : ORD : Procedure Date : Oct 31 2023 15:33:44 Edit Date : Nov 06 2023 09:42:18 Diagnosis: NORMAL SINUS RHYTHM ANTEROLATERAL T WAVE ABNORMALITY BORDERLINE PROLONGED QTC ABNORMAL ECG Confirmed by TRENT BYRD MD ([id number]) on 11/06/2023 9:42:18 AM Test Reason : AMET Location : 74 : H71 H71-19 Overread By : TRENT BYRD MD Edited By : TRENT BYRD MD Referred By : PHOENIX CARDENAS Acquired by : MARI DUMONT [facility] EMERon 10-31-2023 [facility] HNO ID: [id number] Author: PASTORA KINGSLEY APRN.MOLD BURNER Service: Critical Care Author Type: Nurse Practitioner Type: Chg in Clinical Condition Filed: 10/31/2023 16:30 Note Text: MEDICAL EMERGENCY TEAM AMET CODE STATUS: Code Status: Not on file BACKGROUND 33 year old male, non-verbal/developmen jose juan delay, who underwent exlap for SBO 10/29/23 and was found to have a sigmoid volvulus. Amet today for tachypnea and concern from brother at the bedside about patient becoming rigid and jerking upper extremities. REASON FOR CALL tachypnea, concern for possible seizure ASSESSMENT On arrival patient with increased WOB and tachypneic. Placed on 2 L NC for O2 sat 90%. Glucose 123. HDS. In questioning the brother about events leading up to this, he felt he may have had difficulty swallowing a piece of chicken from lunch. The patient is also is restraints. He may have aspirated the chicken and this caused the UE rigidness and jerking? He did not appear to be post-ictal and has no hx of seizures. Will defer further neuro workup to primary as patient was at his baseline mental status during the Amet call. CXR ordered and pending. WOB and RR slowed back to his baseline without any intervention. Primary team aware of Amet call. INTERVENTIONS CXR DISPOSITIONS Improved Primary Team Notified: Yes PAST MEDICAL / SURGICAL HISTORY PAST MEDICAL HISTORY Diagnosis Date Atopic eczema Autism disorder Bipolar 1 disorder (HCC) Cataracts, bilateral Developmental non-verbal disorder Mental retardation associated with Fragile X syndrome Obsessive compulsive disorder PAST SURGICAL HISTORY Procedure Laterality Date DENTAL SURGERY HX PERTINENT PHYSICAL EXAM and INITIAL ASSESSMENT (For vital signs prior and during MET call, see nursing documentation) Appearance: Alert, No distress, and Morbidly obese Airway Patent: Yes Breathing Evaluation: initially tachypneic then settled down Circulation Evaluation: well perfused Neurologic Evaluation: GCS Evaluation: 4. Spontaneous, 1: No speech 6: Obeys Motor commands Is the Level of Consciousness at Baseline: Yes Head/Eyes: L pupil reactive, R pupil + cataract Skin: warm and dry Lungs: decreased breath sounds Abdomen: soft Extremities: no edema Peripheral 10/27/23 External Facility Left Antecubital (Active) Placement Date: 10/27/23 Line, Drain, Airway Placed by: (!) External Facility Location: Left Insertion Site: Antecubital Peripheral 10/30/23800 Right Antecubital 18 Gauge (Active) Placement Date/Time: 10/30/23 (c) 800 Location: Right Insertion Site: Antecubital Size: 18 Gauge PERTINENT DIAGNOSTICS Diagnostic Tests Reviewed: Most recent labs and imaging results. Primary Team Aware/Notified: Yes SIGNATURE: Pastora Kingsley APRN.CNP PATIENT NAME: Johnny Devine DATE: October 31, 2023 TIME: 4:13 PM Normal [facility] Magnesium SerPl-mCncon 10-30 Magnesium [Mass/Vol] 2.2 mg/dL Normal 1.7-2.3 [facility] Comment on above: Order Comment: Speci men Type: BLOOD SPECIMENOrdering Facility: [facility] Address: [address] [place] [address] Performed By: #### 1 9123-9, 2777-1 ####[facility] [id number] [place] [address] [place] Magnesium [Mass/Vol] 2.1 mg/dL Normal 1.7-2.3 [facility] Comment on above: Order Comment: Speci men Type: BLOOD SPECIMEN Ordering Facility: [facility] Address: [address] [place] [address] Performed By: #### 2 777-1, 72801-6, 70022-3 #### [facility] CLIA [id number] [address] [place] [address] [place] NURSING PROGon 10-31-2023 NURSING PROG HNO ID: [id number] Author: PZA RIGGINS, MIRIAM Service: Nursing Author Type: Registered Nurse Type: Nursing Progress Note Filed: 10/31/2023 16:32 Note Text: Called into patients room by brother who stated patient was shaking hard and having seizure like activity, on entering room patient was tachypneic and breathing hard, AMET activated. Chest xray ordered, EKG done, labs done, oxygen 89 on RA, 2L NC applied. Normal [facility] Phosphate SerPl-mCncon 10-30 Phosphate [Mass/Vol] 1.4 mg/dL Low 2.7-4.8 [facility] Comment on above: Order Comment: Speci men Type: BLOOD SPECIMENOrdering Facility: [facility] Address: [address] [place] [address] Performed By: #### 1 9123-9, 2777-1 ####[facility] [id number] [facility] [place] [address] [place] Phosphate [Mass/Vol] 2.1 mg/dL Low 2.7-4.8 [facility] Comment on above: Order Comment: Speci men Type: BLOOD SPECIMEN Ordering Facility: [facility] Address: [address] [place] [address] Performed By: #### 2 777-1, 92811-1, 70514-2 #### [facility] CLIA [id number] [address] [place] [address] [place] [address] [place] XR ABDOMEN 1V SUPINEon 10-30 XR ABDOMEN 1V SUPINE * * *Final Report* * * DATE OF EXAM: Oct 31 2023 4:32PM VALERIE [id number] - XR ABDOMEN 1V SUPINE / PROCEDURE REASON: Vomiting, bilious * * * * Physician Interpretation * * * * ABDOMEN, 1 VIEW labeled 10/31/2023 1552 hours CLINICAL INFORMATION: Vomiting, bilious. TECHNIQUE: Supine frontal view, 3 image(s) COMPARISON: OSH CT 10/27/2023 RESULT: See impression. IMPRESSION: Gaseous distention of colon, with sigmoid colon measuring up to 10 cm. This does extend into the more proximal/upstream colon, with hepatic flexure measuring up to 7 cm well. There is gaseous distention of the stomach. No significant small bowel dilatation. Findings may represent postoperative ileus. Of note, the pattern of dilatation does appear different from the 10/[address] bowel dilation. Mild subcutaneous emphysema along right body wall. No acute osseous abnormality. Lung bases are not well seen. Site Planner: [facility] Transcribe Date/Time: Oct 31 2023 5:15P Dictated by : LEONEL ALONZO MD This examination was interpreted and the report reviewed and electronically signed by: LEONEL ALONZO MD on Oct 31 2023 5:22PM EST [id number] Normal [facility] XR CHEST 1V FRONTAL PORTon 0 10-31-2023 XR CHEST 1V FRONTAL PORT * * *Final Report* * * DATE OF EXAM: Oct 31 2023 3:56PM VALERIE 5376 - XR CHEST 1V FRONTAL PORT / PROCEDURE REASON: Shortness of breath * * * * Physician Interpretation * * * * EXAMINATION: CHEST RADIOGRAPH (PORTABLE SINGLE VIEW AP) Exam Date/Time: 10/31/2023 3:56 PM Clinical History: Shortness of breath MQ: [id number] Comparison: 3 days prior RESULT: Lines, tubes, and devices: None. Lungs and pleura: Mild increase of hazy basilar and perihilar opacities with volume loss. These may represent atelectasis, although superimposed edema inflammation is not excluded. Right hemidiaphragm elevation remains. Mild increase and/or shift of small right pleural effusion. No pneumothorax. Cardiomediastinal silhouette: Stable cardiomediastinal silhouette. Other: . IMPRESSION: See result. Site Planner: [facility] Transcribe Date/Time: Oct 31 2023 4:14P Dictated by : SHEA WORTHY MD This examination was interpreted and the report reviewed and electronically signed by: SHEA WORTHY MD on Oct 31 2023 4:15PM EST [id number] Normal [facility] ANES POSTPROC EVALon 024 ANES POSTPROC EVAL HNO ID: [id number] Author: JEREMIE JOAQUIN MD Service: ? Author Type: Anesthesiologist Type: Anesthesia Postprocedure Evaluation Filed: 10/30/2023 11:55 Note Text: POST ANESTHESIA EVALUATION NOTE : 1990 Procedure Summary Date: 10/30/23 Room / Location: [address] [facility] Anesthesia Start: 731 Anesthesia Stop: 902 Procedure: DORSAL SLIT FORESKIN EXCEPT (Penis) Diagnosis: Paraphimosis (Paraphimosis [N47.2]) Surgeons: Oscar Ruiz MD Responsible Provider: Jeremie Joaquin MD Anesthesia Type: general ASA Status: 3 - Emergent Anesthesia Type: general Airway Type: ETT Last Vitals Vitals Value Taken Time BP 134/83 10/30/23 1054 Temp 36.5 ?C (97.7 ?F) 10/30/23 1054 Pulse 87 10/30/23 1144 Resp 12 10/30/23 1023 SpO2 90 % 10/30/23 1144 Vitals shown include unfiled device data. Post Anesthesia Patient Status Patient Evaluation: PACU. PACU/ICU Patient Condition: stable. Anticipated Disposition: inpatient floor planned admission. Neurological Status: sleepy but arousable. Pulmonary Status: breathing comfortably on room air Airway Control: returned to baseline unsupported. Cardiovascular Status: stable. Pain Management: clinically adequate - multimodal analgesia pain management approach Postoperative Hydration: acceptable. Intraoperative Events: no significant anesthesia events Post Operative Nausea/Vomiting Status: no significant post operative nausea or vomiting Recommendation: further care per PACU/ICU/floor team. Anesthesia Observations No Documentation SIGNATURE: Jeremie Shepherd MD PATIENT NAME: Johnny Devine DATE: October 30, 2023 TIME: 11:46 AM CSN: [id number] Normal [facility] ANES PRE-OPon 10-30-2023 ANES PRE-OP HNO ID: [id number] Author: JEREMIE JOAQUIN MD Service: ? Author Type: Anesthesiologist Type: Anesthesia Preprocedure Evaluation Filed: 10/30/2023 08:16 Note Text: ANESTHESIOLOGY DAY OF SURGERY NOTE : 1990 Procedure Information Date/Time: 10/30/23 0730 Procedure: DORSAL SLIT FORESKIN EXCEPT (Penis) Location: [address] [facility] Surgeons: BarnesRafael Quiroga MD Estimated body mass index is 31.24 kg/m? as calculated from the following: Height as of this encounter: 172.7 cm (5' 8 ). Weight as of this encounter: 93.2 kg (205 lb 7.5 oz). Most recent hematocrit and potassium results: Hematocrit 31.1 10/30/2023 Potassium 3.6 10/30/2023 Relevant Problems ENDO (+) Hypothyroidism Gastrointestinal (+) SBO (small bowel obstruction) (HCC) Psychiatry (+) Bipolar disorder (HCC) (+) Moderate intellectual disability (+) Obsessive-compulsive disorder Fragile X syndrome -inability to reduce paraphimosis during haskins insertion -POD 1 s/p ex lap for SBO I - PHYSICAL EVALUATION AIRWAY Patient intubated: No. Tracheostomy tube not present Mallampati: unable to assess. TM distance: >3 FB. Thick neck: no II - ANESTHESIA PLAN ASA Score: 3; emergent. Anesthetic Plan: general Airway type: ETT The patient is not a current smoker. NPO Status: adequate Anesthetic plan additional comments: Rapid sequence induction planned for risk of aspiration NGT in place. . Beta Antony Monitoring Plan Monitoring plan: standard ASA. Post Procedure Analgesic Plan Postoperative analgesic plan: multimodal analgesia and per surgical service. Informed Consent Anesthetic risks, benefits, alternatives, personnel and consent discussed: yes. Patient / Responsible [employer] Party agrees to proceed: yes Patient / Surrogate agrees to blood products: Yes (brother (POA) agrees) Potential Anesthesia issues that may suggest increased risk of complications or contraindication to planned procedure: potential difficult IV access. Vitals Value Taken Time BP 140/84 10/30/23 0518 Pulse 78 10/30/23 0649 Resp 17 10/30/23 0518 Temp 37.3 ?C (99.1 ?F) 10/30/23 0518 SpO2 96 % 10/30/23 0650 Vitals shown include unfiled device data. Facility-Administered Medications as of 10/30/2023 Medication Dose Route Frequency - [COMPLETED] lidocaine urojet 2 % 6 mL topical gel (GLYDO) 6 mL URETHRAL ONCE - lidocaine (PF) 10 mg/mL (1 %) 200 mg injection (XYLOCAINE) 20 mL OTHER ONCE - [COMPLETED] lidocaine urojet 2 % 11 mL topical gel (GLYDO) 11 mL MUCOUS MEMBRANE ONCE - phenol 1 [place] (CHLORASEPTIC) 1 [place] MUCOUS MEMBRANE (TOPICAL MOUTH AND THROAT) q 2 H PRN Or - benzocaine-menthol 1 Loz[place] (CHLORASEPTIC) 1 [place]oz[place] MUCOUS MEMBRANE (TOPICAL MOUTH AND THROAT) q 2 H PRN - HYDROmorphone 0.2 mg injection (DILAUDID) 0.2 mg INTRAVENOUS q 3 H PRN - [COMPLETED] bacitracin 500 unit/gram topical ointment TOPICAL ONCE - [COMPLETED] lactated ringers 500 mL iv bolus 500 mL INTRAVENOUS ONCE - [COMPLETED] sodium phosphate 30 mmol in D5W 250 mL 30 mmol INTRAVENOUS ONCE - metoprolol 5 mg injection (LOPRESSOR) 5 mg INTRAVENOUS q 6 HR - QUEtiapine 100 mg tab(s) (SEROquel) 100 mg ORAL BID - bisacodyl 10 mg suppository (DULCOLAX) 10 mg RECTAL DAILY - levothyroxine 112 mcg tab(s) (SYNTHROID) 112 mcg ORAL DAILY (6 AM) - sertraline 100 mg tab(s) (ZOLOFT) 100 mg ORAL DAILY - heparin 5,000 Units injection 5,000 Units SUBCUTANEOUS q 8 H - NaCl 0.9% iv flush bag 20 mL INTRAVENOUS PRN - lactated ringers iv infusion 75 mL/hr INTRAVENOUS CONTINUOUS - ondansetron orally disintegrating 4 mg tab(s) (ZOFRAN ODT) 4 mg ORAL q 6 H PRN Or - ondansetron (PF) 4 mg injection (ZOFRAN) 4 mg INTRAVENOUS q 6 H PRN - naltrexone 100 mg tab(s) 100 mg ORAL BID - risperiDONE 3 mg tab(s) (RisperDAL) 3 mg ORAL BID - [COMPLETED] lactated ringers 1,000 mL iv bolus 1,000 mL INTRAVENOUS ONCE - pantoprazole 40 mg injection (PROTONIX) 40 mg INTRAVENOUS DAILY (6 AM) - phenol 1 [place] (CHLORASEPTIC) 1 [place] MUCOUS MEMBRANE (TOPICAL MOUTH AND THROAT) q 2 H PRN - cloNIDine HCl 0.2 mg tab(s) (CATAPRES) 0.2 mg NASOGASTRIC TID - montelukast 10 mg tab(s) (SINGULAIR) 10 mg ORAL AT BEDTIME - sertraline 50 mg tab(s) (ZOLOFT) 50 mg NASOGASTRIC DAILY - valproic acid 250 mg CUP (DEPAKENE) 250 mg NASOGASTRIC q 6 H - clomiPRAMINE 75 mg cap(s) (ANAFRANIL) 75 mg NASOGASTRIC AT BEDTIME - lithium carbonate 300 mg cap(s) (ESKALITH) 300 mg NASOGASTRIC BID Outpatient Medications as of 10/30/2023 Medication Sig - denosumab (PROLIA) 60 mg/mL Inject 60 mg subcutaneously one time only. - atorvastatin (LIPITOR) 10 mg tablet - clomiPRAMINE (ANAFRANIL) 75 mg capsule (Patient not taking: Reported on 10/28/2023) - cloNIDine HCl (CATAPRES) 0.2 mg tablet Take 0.2 mg by mouth three times a day. 0800, 1600, 2000 - famotidine (PEPCID) 20 mg tablet - fluticasone (FLONASE) 50 mcg/actuation nasal spray INSTILL 2 SPRAYS PER NOSTRIL EVERY MORNING F (more content not included)... Normal [facility] Basic metabolic 2000 panelon 10-30-2023 Anion gap [Moles/Vol] 12 mmol/L Normal 9-18 [facility] Comment on above: Order Comment: Speci men Type: BLOOD SPECIMEN Ordering Facility: [facility] Address: [address] [place] [address] Performed By: #### 2 4321-2, , 2776-08 #### [facility] CLIA [id number] [address] [place] [address] [place] Calcium [Mass/Vol] 7.4 mg/dL Low 8.5-10.2 [facility] Comment on above: Order Comment: Speci men Type: BLOOD SPECIMEN Ordering Facility: [facility] Address: [address] [place] [address] Performed By: #### 2 4321-2, , 2776-08 #### [facility] CLIA [id number] [address] [place] [address] [place] Chloride [Moles/Vol] 113 mmol/L High 97-105 [facility] Comment on above: Order Comment: Speci men Type: BLOOD SPECIMEN Ordering Facility: [facility] Address: [address] [place] [address] Performed By: #### 2 4321-2, , 2776-08 #### [facility] CLIA [id number] [address] [place] [address] [place] CO2 [Moles/Vol] 24 mmol/L Normal 22-30 [facility] Comment on above: Order Comment: Speci men Type: BLOOD SPECIMEN Ordering Facility: [facility] Address: [address] [place] [address] Performed By: #### 2 4321-2, , 2776-08 #### [facility] CLIA [id number] [address] [place] [address] [place] Creatinine [Mass/Vol] 0.69 mg/dL Low 0.73-1.22 [facility] Comment on above: Order Comment: Speci men Type: BLOOD SPECIMEN Ordering Facility: [facility] Address: [address] [place] [address] Performed By: #### 2 4321-2, , 2776-08 #### [facility] CLIA [id number] [address] [place] [address] [place] Creatinine and Glomerular filtration rate.predicted panel (S/P/Bld) 127 mL/min/1.73m??? Normal >=60 [facility] Comment on above: Order Comment: Speci men Type: BLOOD SPECIMEN Ordering Facility: [facility] Address: [address] [place] [address] Result Comment: Lor mated Glomerular Filtration Rate (eGFR) is calculated using the 2020 CKD-EPI creatinine equation. This equation utilizes serum creatinine, sex, and age as parameters. The creatinine assay has traceable calibration to isotope dilution-mass spectrometry. Refer to KDIGO guidelines for clinical interpretation. In patients with unstable renal function, e.g. those with acute kidney injury, the eGFR may not accurately reflect actual GFR. Performed By: #### 2 4321-2, , 2776-08 #### [facility] CLIA [id number] [facility] [place] [address] [place] Glucose [Mass/Vol] 98 mg/dL Normal 74-99 [facility] Comment on above: Order Comment: Speci men Type: BLOOD SPECIMEN Ordering Facility: [facility] Address: [address] [place] [address] Result Comment: The [place] Diabetes Association (ADA) provides guidance for cutoff values for fasting glucose and random glucose. The ADA defines fasting as no caloric intake for at least 8 hours. Fasting plasma glucose results between 100 to 125 mg/dL indicate increased risk for diabetes (prediabetes). Fasting plasma glucose results greater than or equal to 126 mg/dL meet the criteria for diagnosis of diabetes. In the absence of unequivocal hyperglycemia, results should be confirmed by repeat testing. In a patient with classic symptoms of hyperglycemia or hyperglycemic crisis, random plasma glucose results greater than or equal to 200 mg/dL meet the criteria for diagnosis of diabetes. Reference: Standards of Medical Care in Diabetes 2016, [place] [employer] Association. Diabetes Care. 2016.39(Suppl 1). Performed By: #### 2 4321-2, , 2776-08 #### [facility] CLIA [id number] [address] [place] [address] [place] Potassium [Moles/Vol] 3.6 mmol/L Low 3.7-5.1 [facility] Comment on above: Order Comment: Akbari men Type: BLOOD SPECIMEN Ordering Facility: [facility] Address: [address] [place] [address] Performed By: #### 2 4321-2, , 2776-08 #### [facility] CLIA [id number] [address] [place] [address] [place] Sodium [Moles/Vol] 149 mmol/L High 136-144 [facility] Comment on above: Order Comment: Akbari men Type: BLOOD SPECIMEN Ordering Facility: [facility] Address: [address] [place] [address] Performed By: #### 2 4321-2, , 2776-08 #### [facility] CLIA [id number] [address] [place] [address] [place] Urea nitrogen [Mass/Vol] 9 mg/dL Normal 9-24 [facility] Comment on above: Order Comment: Speci men Type: BLOOD SPECIMEN Ordering Facility: [facility] Address: [address] [place] [address] Performed By: #### 2 4321-2, 17568-8, 2776- #### [facility] CLIA [id number] [address] [place] [address] [place] CBC W Auto Differential pane l (Bld)on 10-30-2023 Basophils (Bld) [#/Vol] 0.03 10*3/uL Normal <0.11 [facility] Comment on above: Order Comment: Speci men Type: BLOOD SPECIMEN Ordering Facility: [facility] Address: [address] [place] [address] Performed By: #### 5 7021-8 #### [facility] CLIA [id number] [address] [place] [address] [place] Basophils/100 WBC (Bld) 0.3 % Normal [facility] Comment on above: Order Comment: Speci men Type: BLOOD SPECIMEN Ordering Facility: [facility] Address: [address] [place] [address] Performed By: #### 5 7021-8 #### [facility] CLIA [id number] [address] [place] [address] [place] Differential cell count method Nom (Bld) Auto Normal [facility] Comment on above: Order Comment: Speci men Type: BLOOD SPECIMEN Ordering Facility: [facility] Address: [address] [place] [address] Performed By: #### 5 7021-8 #### [facility] CLIA [id number] [address] [place] [address] [place] Eosinophils (Bld) [#/Vol] 0.07 10*3/uL Normal <0.46 [facility] Comment on above: Order Comment: Speci men Type: BLOOD SPECIMEN Ordering Facility: [facility] Address: [address] [place] [address] Performed By: #### 5 7021-8 #### [facility] CLIA [id number] [address] [place] [address] [place] Eosinophils/100 WBC (Bld) 0.6 % Normal [facility] Comment on above: Order Comment: Speci men Type: BLOOD SPECIMEN Ordering Facility: [facility] Address: [address] [place] [address] Performed By: #### 5 7021-8 #### [facility] CLIA [id number] [address] [place] [address] [place] Erythrocyte distribution width (RBC) [Ratio] 14.5 % Normal 11.5-15.0 [facility] Comment on above: Order Comment: Speci men Type: BLOOD SPECIMEN Ordering Facility: [facility] Address: [address] [place] [address] Performed By: #### 5 7021-8 #### [facility] CLIA [id number] [address] [place] [address] [place] Hematocrit (Bld) [Volume fraction] 31.1 % Low 39.0-51.0 [facility] Comment on above: Order Comment: Speci men Type: BLOOD SPECIMEN Ordering Facility: [facility] Address: [address] [place] [address] Performed By: #### 5 7021-8 #### [facility] CLIA [id number] [address] [place] [address] [place] Hemoglobin (Bld) [Mass/Vol] 9.8 g/dL Low 13.0-17.0 [facility] Comment on above: Order Comment: Speci men Type: BLOOD SPECIMEN Ordering Facility: [facility] Address: [address] [place] [address] Performed By: #### 5 7021-8 #### [facility] CLIA [id number] [address] [place] [address] [place] Immature granulocytes (Bld) [#/Vol] 0.06 10*3/uL Normal <0.10 [facility] Comment on above: Order Comment: Speci men Type: BLOOD SPECIMEN Ordering Facility: [facility] Address: [address] [place] [address] Performed By: #### 5 7021-8 #### [facility] CLIA [id number] [address] [place] [address] [place] Immature granulocytes/100 WBC (Bld) 0.5 % Normal [facility] Comment on above: Order Comment: Speci men Type: BLOOD SPECIMEN Ordering Facility: [facility] Address: [address] [place] [address] Performed By: #### 5 7021-8 #### [facility] CLIA [id number] [address] [place] [address] [place] Lymphocytes (Bld) [#/Vol] 1.41 10*3/uL Normal 1.00-4.00 [facility] Comment on above: Order Comment: Speci men Type: BLOOD SPECIMEN Ordering Facility: [facility] Address: [address] [place] [address] Performed By: #### 5 7021-8 #### [facility] CLIA [id number] [address] [place] [address] [place] Lymphocytes/100 WBC (Bld) 12.0 % Normal [facility] Comment on above: Order Comment: Speci men Type: BLOOD SPECIMEN Ordering Facility: [facility] Address: [address] [place] [address] Performed By: #### 5 7021-8 #### [facility] CLIA [id number] [address] [place] [address] [place] MCH (RBC) [Entitic mass] 26.6 pg Normal 26.0-34.0 [facility] Comment on above: Order Comment: Speci men Type: BLOOD SPECIMEN Ordering Facility: [facility] Address: [address] [place] [address] Performed By: #### 5 7021-8 #### [facility] CLIA [id number] [address] [place] [address] [place] MCHC (RBC) [Mass/Vol] 31.5 g/dL Normal 30.5-36.0 [facility] Comment on above: Order Comment: Speci men Type: BLOOD SPECIMEN Ordering Facility: [facility] Address: [address] [place] [address] Performed By: #### 5 7021-8 #### [facility] CLIA [id number] [address] [place] [address] [place] MCV (RBC) [Entitic vol] 84.5 fL Normal 80.0-100.0 [facility] Comment on above: Order Comment: Speci men Type: BLOOD SPECIMEN Ordering Facility: [facility] Address: [address] [place] [address] Performed By: #### 5 7021-8 #### [facility] CLIA [id number] [address] [place] [address] [place] Monocytes (Bld) [#/Vol] 1.18 10*3/uL High <0.87 [facility] Comment on above: Order Comment: Speci men Type: BLOOD SPECIMEN Ordering Facility: [facility] Address: [address] [place] [address] Performed By: #### 5 7021-8 #### [facility] CLIA [id number] [address] [place] [address] [place] Monocytes/100 WBC (Bld) 10.1 % Normal [facility] Comment on above: Order Comment: Speci men Type: BLOOD SPECIMEN Ordering Facility: [facility] Address: [address] [place] [address] Performed By: #### 5 7021-8 #### [facility] CLIA [id number] [address] [place] [address] [place] Neutrophils (Bld) [#/Vol] 8.98 10*3/uL High 1.45-7.50 [facility] Comment on above: Order Comment: Speci men Type: BLOOD SPECIMEN Ordering Facility: [facility] Address: [address] [place] [address] Performed By: #### 5 7021-8 #### [facility] CLIA [id number] [address] [place] [address] [place] Neutrophils/100 WBC (Bld) 76.5 % Normal [facility] Comment on above: Order Comment: Speci men Type: BLOOD SPECIMEN Ordering Facility: [facility] Address: [address] [place] [address] Performed By: #### 5 7021-8 #### [facility] CLIA [id number] [address] [place] [address] [place] Nucleated RBC (Bld) [#/Vol] 10*3/uL Normal <0.01 [facility] Comment on above: Order Comment: Speci men Type: BLOOD SPECIMEN Ordering Facility: [facility] Address: [address] [place] [address] Performed By: #### 5 7021-8 #### [facility] CLIA [id number] [address] [place] [address] [place] Nucleated RBC/100 WBC (Bld) [Ratio] 0.0 /100 WBC Normal [facility] Comment on above: Order Comment: Speci men Type: BLOOD SPECIMEN Ordering Facility: [facility] Address: [address] [place] [address] Performed By: #### 5 7021-8 #### [facility] CLIA [id number] [address] [place] [address] [place] Platelet mean volume (Bld) [Entitic vol] 9.7 fL Normal 9.0-12.7 [facility] Comment on above: Order Comment: Speci men Type: BLOOD SPECIMEN Ordering Facility: [facility] Address: [address] [place] [address] Performed By: #### 5 7021-8 #### [facility] CLIA [id number] [address] [place] [address] [place] Platelets (Bld) [#/Vol] 138 10*3/uL Low 150-400 [facility] Comment on above: Order Comment: Speci men Type: BLOOD SPECIMEN Ordering Facility: [facility] Address: [address] [place] [address] Performed By: #### 5 7021-8 #### [facility] CLIA [id number] [address] [place] [address] [place] RBC (Bld) [#/Vol] 3.68 10*6/uL Low 4.20-6.00 [facility] Comment on above: Order Comment: Speci men Type: BLOOD SPECIMEN Ordering Facility: [facility] Address: [address] [place] [address] Performed By: #### 5 7021-8 #### [facility] CLIA [id number] [address] [place] [address] [place] WBC (Bld) [#/Vol] 11.73 10*3/uL High 3.70-11.00 [facility] Comment on above: Order Comment: Speci men Type: BLOOD SPECIMEN Ordering Facility: [facility] Address: [address] [place] [address] Performed By: #### 5 7021-8 #### [facility] CLIA [id number] [address] [place] [address] [place] CONSULTon 10-30-2023 CONSULT HNO ID: [id number] Author: RAFAEL GIRALDO MD Service: Urology Author Type: Resident Type: Consults Filed: 10/30/2023 09:06 Note Text: Attestation signed by Rafael Giraldo MD at 10/30/2023 9:06 AM I Discussed with the resident and agree with resident's findings and plan as documented in the resident's note. I was not present in this encounter UROLOGY SERVICE CONSULT NOTE PATIENT NAME: Johnny Devine DATE: 10/30/2023 TIME: 2:06 AM ASSESSMENT AND PLAN Johnny Devine is a 33 year old male who is non-verbal with developmental delay who is POD 0 from diagnostic lap for concern of bowel obstruction. Per primary team patient was transferred to [facility] with 8 Fr haskins catheter placed at OSH for accurate I/Os, which fell out post diagnostic lap. Urology was consulted for AUR with bladder scan in 900 after primary team attempted 3x with haskins catheter placement. Permission to place haskins catheter was given verbally by legal guardian On exam, patient has a buried penis. Upon retracting the pannus, a tight phimotic ring was noted. The meatal orifice was not visualized, requiring more retraction. Once the meatal orifice was visualized, an 8 [place] Haskins catheter was sterilely placed. However, the phimotic ring slipped behind the glans of the penis. The glans quickly swelled, and despite holding prolonged glans pressure (with and without penile block), the paraphimosis could not be reduced. Plan: -Keep haskins catheter 8Fr to gravity at least for 3 days before voiding trial. If planning to discharge sooner, page urology so that a TOV can be scheduled. - maintain a bowel regimen to avoid constipation, avoid narcotic medications, encourage ambulation. - Plan will be for a dorsal slit in the AM - Apply bacitracin to glans - Blue carded for tomorrow. Discussed with Dr Barnes and Dr. 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 Per primary team patient was transferred to [facility] with 8 Fr haskins catheter placed at OSH for accurate I/Os, which fell out post diagnostic lap. Urology was consulted for AUR with bladder scans in 900s. Limited urological history available - per aunt, patient is likely circumcised. Per legal guardian (brother) patient does not have any prior urological issues or complaints. Patient is nonverbal and unable to contribute to the history. Permission to place haskins catheter was given verbally by legal guardian On exam, patient has a buried penis. Upon retracting the pannus, a tight phimotic ring was noted. The meatal orifice was not visualized, requiring more retraction. Once the meatal orifice was visualized, an 8 [place] Haskins catheter was sterilely placed. CYU was visualized with approx However, the phimotic ring slipped behind the glans of the penis. The glans quickly swelled, and despite holding prolonged glans pressure (with and without penile block), the paraphimosis could not be reduced. --- PAST MEDICAL HISTORY Diagnosis Date Atopic eczema Autism disorder Bipolar 1 disorder (HCC) Cataracts, bilateral Developmental non-verbal disorder Mental retardation associated with Fragile X syndrome Obsessive compulsive disorder PAST SURGICAL HISTORY Procedure Laterality Date DENTAL SURGERY HX No family history on file. Social History Tobacco Use Smoking status: Unknown Vaping Use Vaping Use: Never used Substance Use Topics Alcohol use: Never Drug use: Never MEDICATIONS: Prior to Admission Medications: divalproex DR (DEPAKOTE) 125 mg EC tabletTake 125 mg by mouth two times a day. 0200, 1999Disp: Rfl: loratadine 10 mg capTake 10 mg by mouth daily at bedtime.Disp: Rfl: montelukast (SINGULAIR) 10 mg tabletTake 10 mg by mouth daily at bedtime.Disp: Rfl: denosumab (PROLIA) 60 mg/mLInject 60 mg subcutaneously one time only.Disp: Rfl: sertraline (ZOLOFT) 50 mg tabletTake 50 mg by mouth once daily. Take with 100mg zoloft in the morningDisp: Rfl: atorvastatin (LIPITOR) 10 mg tabletDisp: Rfl: clomiPRAMINE (ANAFRANIL) 75 mg capsuleDisp: Rfl: (Patient not taking: Reported on 10/28/2023) cloNIDine HCl (CATAPRES) 0.2 mg tabletTake 0.2 mg by mouth three times a day. 0800, 1600, 1999Disp: Rfl: famotidine (PEPCID) 20 mg tabletDisp: Rfl: fluticasone (FLONASE) 50 mcg/actuation nasal sprayINSTILL 2 SPRAYS PER NOSTRIL EVERY MORNING FOR SINUS CONGESTIONDisp: Rfl: guanFACINE (INTUNIV ER) 4 mg [id number] 4 mg by mouth onc (more content not included)... Normal [facility] Magnesium SerPl-mCncon 10-29 Magnesium [Mass/Vol] 2.0 mg/dL Normal 1.7-2.3 [facility] Comment on above: Order Comment: Speci men Type: BLOOD SPECIMENOrdering Facility: [facility] Address: [address] [place] [address] Performed By: #### 2 4321-2, 65757-2, 2777-1 ####[facility] [id number] [address] [place] NURSING PROGon 10-30-2023 NURSING PROG HNO ID: [id number] Author: SHAHRIAR FARFAN, RN Service: Nursing Author Type: Registered Nurse Type: Nursing Progress Note Filed: 10/30/2023 09:52 Note Text: Pt awake, opens eyes spontaneously, MEDINA to command, generalized weakness. Nonverbal at baseline. VSS. Appears comfortable, no grimacing, resting Normal [facility] NURSING PROG HNO ID: [id number] Author: SHAHRIAR FARFAN RN Service: Nursing Author Type: Registered Nurse Type: Nursing Progress Note Filed: 10/30/2023 09:49 Note Text: Nursing Progress: Topic: RESTRAINT NON-VIOLENT PATIENT NAME: Johnny Devine Patient Location: Main - Periop OR/Main - Periop OR Room: Main - Periop OR (E020-25) The patient demonstrates Attempting to Remove Medical Devices Vital to Medical Stability, Lack of Understanding/Ability to Comply with Safety Directions, Impulsive Behavior (PT pulled out NGT) as evidenced by the following behaviors reaching for NG tube, oxygen mask, which pose an imminent danger to self or others. The following interventions were attempted but were not effective in protecting the patient's safety: Alarms, Planning Manager/Sitter, Bed in Low/Locked Position Next, a comprehensive assessment was performed and warranted placing the patient in Soft Bilateral Wrists, the least restrictive restraint needed to protect the patient's safety. Ongoing safety assessments and evaluation for earliest removal of restraints will be performed. DATE: October 30, 2023 TIME: 9:48 AM Shahriar Farfan RN Normal [facility] NURSING PRO HNO ID: [id number] Author: LEONARD FRANCIS JR, RN Service: Nursing Author Type: Registered Nurse Type: Nursing Progress Note Filed: 10/30/2023 01:11 Note Text: 2200 PM: PT does not have have a haskins catheter post op. Per report, prior to OR PT was admitted from OSH with a pediatric haskins in place due to difficulties with normal catheter. 15333 Gen surg notified. PT is clean and dry, will bladder scan. 2245 PM: Bladder scan for 485, 915, 999 cc. PT still resting comfortably. 0000 AM: Dr. Leeann Telles at bedside. Pediatric haskins attempted x2 with no success. PT unable to tolerate catheter advancement, restraints still applied. Urology will be consulted per . Will CTM. 0030 AM: Restraints removed. 0040 AM: Urology and Gen surg at bedside Leonard PINEDA. Normal [facility] OPERATIVE NOon 10-30-2023 OPERATIVE NO HNO ID: [id number] Author: HERMAN JOHNSON MD Service: Urology Author Type: Resident Type: Operative Report Filed: 10/30/2023 09:08 Note Text: Attestation signed by Oscar Ruiz MD at 10/30/2023 9:20 AM Attestation The primary proceduralist, Wale Thomas, performed the entire procedure with the assistance of Dr. Johnson. I agree with the documentation above. [facility] UROLOGY OPERATIVE REPORT Patient Name: Johnny Devine Patient Log ID: [id number] Surgery Date: 10/30/2023 Incision/Procedure Start Time: 8:03 AM Incision Close/Procedure End Time: 8:17 AM Surgeon(s) and Vocational Trainer(s): Surgeon(s) and Role: * Oscar Ruiz MD - Primary * Herman Johnson MD - Resident - Assisting * Rafael Giraldo MD Preoperative Diagnosis 1. Paraphimosis Postoperative Diagnosis Same Procedure 1. Dorsal slit Anesthesia General Operative Indications: The patient is a 33 year old male with history of sigmoid volvulus underwent diagnostic lap found to have paraphimosis after catheter placement postoperatively that was unable to be reduced on the floor and was taken to the OR for the above operation. The risks, benefits, and alternatives were explained to the patient, who agreed to proceed with surgical management. Operative Findings - paraphimosis with significant glans edema - reduced and dorsal slit performed with 4-0 Monocryl for closure Operative Procedure The patient was brought to the operating room by the primary team where a huddle involving the patient, surgeons, anesthesia, and operative staff correctly identified the patient, procedure to be performed, laterality, allergies, antibiotics, and equipment to be used. A weight appropriate dose of prophylactic antibiotics (Ancef) was administered intravenously prior to the procedure and sequential compression devices were applied to the lower extremities and activated prior to induction of anesthesia. General anesthesia was induced. The patient was placed in the supine position. All pressure points were padded per protocol and the operative area was prepped and draped in the standard sterile fashion. The paraphimosis was reduce with significant effort. A snap was placed at the 12 o'clock position and the tissue crushed. This was divided with Metzenbaum scissors. This was repeated until the glans was adequately exposed. The skin edges were approximated with 4-0 Monocryl. Hemostasis was excellent. A 10-Fr Haskins was placed without difficulty. A penile block was performed with 10 cc of 0.25% marcaine. The glans appeared intact and healthy at conclusion of the case. The patient tolerated the procedure well and was taken to the recovery area in stable condition. Estimated Blood Loss 3 mL Specimens * No specimens in log * Implantable Devices None Drains Haskins Complications None Accidental perforations or lacerations None The primary surgeon/proceduralist performed the procedure with assistance. Dictated by Herman Johnson MD on behalf of William Ruiz MD. Attestation The primary proceduralist, Wale Thomas, performed the entire procedure with the assistance of Dr. Johnson. I agree with the documentation above. [facility] Phosphate SerPl-mCncon 10-29 Phosphate [Mass/Vol] 2.2 mg/dL Low 2.7-4.8 [facility] Comment on above: Order Comment: Speci men Type: BLOOD SPECIMENOrdering Facility: [facility] Address: [address] [place], [place] [address] [address] Performed By: #### 2 4321-2, 82068-6, 2777-1 ####[facility] [id number] [place] [address] [place] XR ABDOMEN 1V SUPINEon 10-29 XR ABDOMEN 1V SUPINE * * *Final Report* * * DATE OF EXAM: Oct 30 2023 3:00AM VALERIE 5289 - XR ABDOMEN 1V SUPINE / PROCEDURE REASON: Evaluate tube, line or lead position * * * * Physician Interpretation * * * * ABDOMEN, 1 VIEW CLINICAL INFORMATION: Nasogastric/orogastri c tube placement. DATE: 10/30/2023 TECHNIQUE: Supine abdomen 1 image(s), with postprocessing RESULT: See impression. IMPRESSION: There is a nasogastric/orogastri c tube with the tip and sidehole in the stomach. Gas-filled distended loops of mildly dilated small bowel and colon, likely an ileus. Sigmoid distention appears improved Site Planner: PSCB Transcribe Date/Time: Oct 30 2023 7:41A Dictated by : RYAN MORRIS MD This examination was interpreted and the report reviewed and electronically signed by: RYAN MORRIS MD on Oct 30 2023 7:43AM EST [id number] Normal [facility] ANES POSTPROC EVALon 024 ANES POSTPROC EVAL HNO ID: [id number] Author: DORIE TENA DO Service: ? Author Type: Anesthesiologist Type: Anesthesia Postprocedure Evaluation Filed: 10/29/2023 14:37 Note Text: POST ANESTHESIA EVALUATION NOTE : 1990 Procedure Summary Date: 10/29/23 Room / Location: [address] [facility] Anesthesia Start: 0948 Anesthesia Stop: 1216 Procedure: EXPLORATORY LAPAROTOMY (Abdomen) Diagnosis: SBO (small bowel obstruction) (HCC) (SBO (small bowel obstruction) (HCC) [K56.609]) Surgeons: Samuel Robin MD Responsible Provider: Dorie Tena DO Anesthesia Type: general ASA Status: 3 - Emergent Anesthesia Type: general Airway Type: ETT Last Vitals Vitals Value Taken Time BP 129/90 10/29/23 1409 Temp 36.8 ?C (98.2 ?F) 10/29/23 1409 Pulse 102 10/29/23 1432 Resp 18 10/29/23 1409 SpO2 93 % 10/29/23 1432 Vitals shown include unfiled device data. Post Anesthesia Patient Status Patient Evaluation: bedside. Anticipated Disposition: inpatient floor planned admission. Neurological Status: sleepy but arousable. Pulmonary Status: breathing comfortably on supplemental oxygen Airway Control: returned to baseline unsupported. Cardiovascular Status: stable. Pain Management: clinically adequate Postoperative Hydration: acceptable. Intraoperative Events: no significant anesthesia events Post Operative Nausea/Vomiting Status: no significant post operative nausea or vomiting Recommendation: continue current plan of care. Anesthesia Observations No Documentation SIGNATURE: Dorie Tena DO PATIENT NAME: Johnny Devine DATE: October 29, 2023 TIME: 2:34 PM CSN: [id number] [facility] ANES PRE-OPon 10-29-2023 ANES PRE-OP HNO ID: [id number] Author: KENZIE MORE APRN.CUSTOMER SERVICE ASSOCIATE Service: ? Author Type: Nurse Skidder Lever Operator Type: Anesthesia Preprocedure Evaluation Filed: 10/29/2023 09:58 Note Text: ANESTHESIOLOGY DAY OF SURGERY NOTE : 1990 Procedure Information Anesthesia Start Date/Time: 10/29/23947 Procedure: EXPLORATORY LAPAROTOMY (Abdomen) Location: [facility] Surgeons: Samuel Robin MD There is no height or weight on file to calculate BMI. Most recent hematocrit and potassium results: Hematocrit 33.0 10/29/2023 Potassium 3.8 10/29/2023 Relevant Problems No relevant active problems I - PHYSICAL EVALUATION AIRWAY Patient intubated: No. Tracheostomy tube not present Mallampati: unable to assess. TM distance: >3 FB. II - ANESTHESIA PLAN ASA Score: 3; emergent. Anesthetic Plan: general Airway type: ETT The patient is not a current smoker. NPO Status: adequate Beta Antony Monitoring Plan Monitoring plan: standard ASA. Post Procedure Analgesic Plan Postoperative analgesic plan: parenteral or oral opioids and multimodal analgesia. Informed Consent Anesthetic risks, benefits, alternatives, personnel and consent discussed: yes. Patient / Responsible Constitution Party agrees to proceed: yes Patient / Surrogate agrees to blood products: Yes Vitals Value Taken Time BP 139/85 10/29/23916 Pulse 62 10/29/23924 Resp 14 10/29/23916 Temp 36.4 ?C (97.5 ?F) 10/29/23916 SpO2 98 % 10/29/23925 Vitals shown include unfiled device data. Facility-Administered Medications as of 10/29/2023 Medication Dose Route Frequency - [COMPLETED] lactated ringers 500 mL iv bolus 500 mL INTRAVENOUS ONCE - [Held on Transfer] sodium phosphate 30 mmol in D5W 250 mL 30 mmol INTRAVENOUS ONCE - [Held on Transfer] QUEtiapine 200 mg tab(s) (SEROquel) 200 mg ORAL BID - [Held on Transfer] levothyroxine 112 mcg tab(s) (SYNTHROID) 112 mcg ORAL DAILY (6 AM) - [Held on Transfer] sertraline 100 mg tab(s) (ZOLOFT) 100 mg ORAL DAILY - [Held on Transfer] heparin 5,000 Units injection 5,000 Units SUBCUTANEOUS q 8 H - [Held on Transfer] NaCl 0.9% iv flush bag 20 mL INTRAVENOUS PRN - [Held on Transfer] lactated ringers iv infusion 75 mL/hr INTRAVENOUS CONTINUOUS - [Held on Transfer] ondansetron orally disintegrating 4 mg tab(s) (ZOFRAN ODT) 4 mg ORAL q 6 H PRN Or - [Held on Transfer] ondansetron (PF) 4 mg injection (ZOFRAN) 4 mg INTRAVENOUS q 6 H PRN - [Held on Transfer] naltrexone 100 mg tab(s) 100 mg ORAL BID - [Held on Transfer] risperiDONE 3 mg tab(s) (RisperDAL) 3 mg ORAL BID - [COMPLETED] lactated ringers 1,000 mL iv bolus 1,000 mL INTRAVENOUS ONCE - [Held on Transfer] pantoprazole 40 mg injection (PROTONIX) 40 mg INTRAVENOUS DAILY (6 AM) - [Held on Transfer] metoprolol 5 mg injection (LOPRESSOR) 5 mg INTRAVENOUS q 6 HR - [Held on Transfer] phenol 1 [place] (CHLORASEPTIC) 1 [place] MUCOUS MEMBRANE (TOPICAL MOUTH AND THROAT) q 2 H PRN - [Held on Transfer] cloNIDine HCl 0.2 mg tab(s) (CATAPRES) 0.2 mg NASOGASTRIC TID - [Held on Transfer] montelukast 10 mg tab(s) (SINGULAIR) 10 mg ORAL AT BEDTIME - [Held on Transfer] sertraline 50 mg tab(s) (ZOLOFT) 50 mg NASOGASTRIC DAILY - [Held on Transfer] valproic acid 250 mg CUP (DEPAKENE) 250 mg NASOGASTRIC q 6 H - [Held on Transfer] clomiPRAMINE 75 mg cap(s) (ANAFRANIL) 75 mg NASOGASTRIC AT BEDTIME - [Held on Transfer] lithium carbonate 300 mg cap(s) (ESKALITH) 300 mg NASOGASTRIC BID Outpatient Medications as of 10/29/2023 Medication Sig - denosumab (PROLIA) 60 mg/mL Inject 60 mg subcutaneously one time only. - atorvastatin (LIPITOR) 10 mg tablet - clomiPRAMINE (ANAFRANIL) 75 mg capsule (Patient not taking: Reported on 10/28/2023) - cloNIDine HCl (CATAPRES) 0.2 mg tablet Take 0.2 mg by mouth three times a day. 0800, 1600, 2000 - famotidine (PEPCID) 20 mg tablet - fluticasone (FLONASE) 50 mcg/actuation nasal spray INSTILL 2 SPRAYS PER NOSTRIL EVERY MORNING FOR SINUS CONGESTION - guanFACINE (INTUNIV ER) 4 mg Tb24 Take 4 mg by mouth once daily. - levothyroxine (SYNTHROID) 112 mcg tablet Take 112 mcg by mouth once daily. - LINZESS 290 mcg capsule Take 290 mcg by mouth once daily. - lithium carbonate (ESKALITH) 300 mg capsule Take 300 mg by mouth two times a day. 0800, 2000 - LORazepam (ATIVAN) 2 mg tab TAKE ONE TABLET BY MOUTH 3 TIMES DAILY ATIVAN - metoprolol tartrate, short acting, (LOPRESSOR) 50 mg tablet (Patient not taking: Reported on 10/28/2023) - MUCUS RELIEF ER 600 mg 12 hr tablet Take 600 mg by mouth twice daily. - naltrexone (TREXAN) 50 mg tablet Take 50 mg by mouth two times a day. - OYSTER SHELL CALCIUM-VITAMIN D 500 mg-5 mcg (200 unit) per tablet Take 1 tablet by mouth twice daily. - polyethylene glycol 3350 (MIRALAX, GLYCOLAX) 17 gram/dose powder Take 17 g by mouth once daily. - QUEtiapine (SEROQUEL) 200 mg tablet Take 200 mg by mouth three times a day. 0800, 1200, 2000 - Sennosid (more content not included)... [facility] BRIEF OP NOTon 10-29-2023 BRIEF OP NOT HNO ID: [id number] Author: PA ALICEA MD Service: General Surgery Author Type: Resident Type: Brief Op Note Filed: 10/29/2023 11:47 Note Text: [facility] BRIEF OP NOTE LOG ID: [id number] SURGERY/PROCEDURE DATE: 10/29/2023 INCISION/PROCEDURE START TIME: 10:25 AM INCISION CLOSE/PROCEDURE END TIME: 11:40 AM SURGEON(S)/PROCEDURAL IST(S) AND OPERATIONS RESEARCH GROUP MANAGER(S): Surgeon(s) and Role: * Samuel Robin MD - Primary * Pa Alicea MD - Assisting * Dante Cherry MD - Assisting No Additional Staff SURGERY/PROCEDURE(S): Diagnostic laparoscopy ANESTHESIA: General FINDINGS: Significantly dilated colon, small bowel run from terminal ileum to ligament of treitz with areas of relative dilation and decompression but no adhesions and no transition point. Colon very dilated particularly transverse and sigmoid. Area of sigmoid twisted under itself suggestive of sigmoid volvulus, however rectum and distal sigmoid were dilated. ESTIMATED BLOOD LOSS: 5 mls SPECIMENS: None COMPLICATIONS: None PRE-OP/PRE-PROCEDURE DIAGNOSIS: Small bowel obstruction POST-OP/POST-PROCEDUR E DIAGNOSIS: Sigmoid volvulus SIGNATURE: Pa Alicea MD PATIENT NAME: Johnny Devine DATE: October 29, 2023 TIME: 11:45 AM PAGER/CONTACT #: [facility] BRIEF OP NOT HNO ID: [id number] Author: DANTE CHERRY MD Service: General Surgery Author Type: Resident Type: Brief Op Note Filed: 10/29/2023 11:44 Note Text: BRIEF OPERATIVE / PROCEDURE NOTE LOG ID: [id number] SURGERY/PROCEDURE DATE: 10/29/2023 INCISION/PROCEDURE START TIME: 10:25 AM INCISION CLOSE/PROCEDURE END TIME: 11:40 AM SURGEON(S)/PROCEDURAL IST(S) AND OPERATIONS RESEARCH GROUP MANAGER(S): Surgeon(s) and Role: * Samuel Robin MD - Primary * Pa Alicea MD - Assisting * Dante Cherry MD - Assisting No Additional Staff SURGERY/PROCEDURE(S): diagnostic laparoscopy ANESTHESIA: General FINDINGS: no adhesions, no apparent hernias, dilated large and small bowel, redundant sigmoid that coursed under a large loop, concerning for sigmoid volvulus, easily reduced ESTIMATED BLOOD LOSS: 5 mls SPECIMENS: None COMPLICATIONS: None CLOSURE TECHNIQUE: Primary PRE-OP/PRE-PROCEDURE DIAGNOSIS: concern for bowel obstruction POST-OP/POST-PROCEDUR E DIAGNOSIS: bowel obstruction due to apparent sigmoid volvulus, reduced SIGNATURE: Dante Cherry MD PATIENT NAME: Johnny Devine DATE: October 29, 2023 TIME: 11:36 AM [facility] BRIEF OP NOT HNO ID: [id number] Author: PA ALICEA MD Service: General Surgery Author Type: Resident Type: Brief Op Note Filed: 10/29/2023 08:42 Note Text: Created in Error Normal [facility] Basic metabolic 2000 panelon 10-29-2023 Anion gap [Moles/Vol] 11 mmol/L Normal 9-18 [facility] Comment on above: Order Comment: Speci men Type: BLOOD SPECIMEN [facility] Address: [address] [place] [address] Performed By: #### 2 777-1, , #### [facility] CLIA [id number] [address] [place] [address] [place] Calcium [Mass/Vol] 7.4 mg/dL Low 8.5-10.2 [facility] Comment on above: Order Comment: Speci men Type: BLOOD SPECIMEN [facility] Address: [address] [place] [address] Performed By: #### 2 777-1, , #### [facility] CLIA [id number] [address] [place] [address] [place] Chloride [Moles/Vol] 112 mmol/L High 97-105 [facility] Comment on above: Order Comment: Speci men Type: BLOOD SPECIMEN [facility] Address: [address] [place], [place] [address] Performed By: #### 2 777-1, 66580-3, #### [facility] CLIA [id number] [address] [place], [place] [address] [place] CO2 [Moles/Vol] 21 mmol/L Low 22-30 [facility] Comment on above: Order Comment: Speci men Type: BLOOD SPECIMEN [facility] Address: [address] [place] [address] Performed By: #### 2 777-1, 70360-8, #### [facility] CLIA [id number] [address] [place] [address] [place] Creatinine [Mass/Vol] 0.69 mg/dL Low 0.73-1.22 [facility] Comment on above: Order Comment: Speci men Type: BLOOD SPECIMEN [facility] Address: [address] [place] [address] Performed By: #### 2 777-1, , #### [facility] CLIA [id number] [address] [place] [address] [place] Creatinine and Glomerular filtration rate.predicted panel (S/P/Bld) 127 mL/min/1.73m??? Normal >=60 [facility] Comment on above: Order Comment: Speci men Type: BLOOD SPECIMEN [facility] Address: [address] [place] [address] Result Comment: Lor mated Glomerular Filtration Rate (eGFR) is calculated using the 2020 CKD-EPI creatinine equation. This equation utilizes serum creatinine, sex, and age as parameters. The creatinine assay has traceable calibration to isotope dilution-mass spectrometry. Refer to KDIGO guidelines for clinical interpretation. In patients with unstable renal function, e.g. those with acute kidney injury, the eGFR may not accurately reflect actual GFR. Performed By: #### 2 777-1, 86435-2, #### [facility] CLIA [id number] [address] [place] [address] [place] Glucose [Mass/Vol] 115 mg/dL High 74-99 [facility] Comment on above: Order Comment: Speci men Type: BLOOD SPECIMEN [facility] Address: [address] [place] [address] Result Comment: The [place] Diabetes Association (ADA) provides guidance for cutoff values for fasting glucose and random glucose. The ADA defines fasting as no caloric intake for at least 8 hours. Fasting plasma glucose results between 100 to 125 mg/dL indicate increased risk for diabetes (prediabetes). Fasting plasma glucose results greater than or equal to 126 mg/dL meet the criteria for diagnosis of diabetes. In the absence of unequivocal hyperglycemia, results should be confirmed by repeat testing. In a patient with classic symptoms of hyperglycemia or hyperglycemic crisis, random plasma glucose results greater than or equal to 200 mg/dL meet the criteria for diagnosis of diabetes. Reference: Standards of Medical Care in Diabetes 2016, [place] Diabetes Association. Diabetes Care. 2016.39(Suppl 1). Performed By: #### 2 777-1, 71016-7, #### [facility] CLIA [id number] [address] [place] [address] [place] Potassium [Moles/Vol] 3.8 mmol/L Normal 3.7-5.1 [facility] Comment on above: Order Comment: Speci men Type: BLOOD SPECIMEN [facility] Address: [address] [place] [address] Performed By: #### 2 777-1, 17066-4, #### [facility] CLIA [id number] [address] [place] [address] [place] Sodium [Moles/Vol] 144 mmol/L Normal 136-144 [facility] Comment on above: Order Comment: Speci men Type: BLOOD SPECIMEN [facility] Address: [address] [place] [address] Performed By: #### 2 777-1, 02560-2, 77342-6 #### [facility] CLIA [id number] [address] [place] [address] [place] Urea nitrogen [Mass/Vol] 13 mg/dL Normal 9-24 [facility] Comment on above: Order Comment: Speci men Type: BLOOD SPECIMEN [facility] Address: [address] [place] [address] Performed By: #### 2 777-1, 05067-0, #### [facility] CLIA [id number] [address] [place] [address] [place] CBC W Auto Differential pane l (Bld)on 10-29-2023 Basophils (Bld) [#/Vol] 10*3/uL Normal <0.11 [facility] Comment on above: Order Comment: Speci men Type: BLOOD SPECIMEN [facility] Address: [address] [place] [address] Performed By: #### 5 7021-8 #### [facility] CLIA [id number] [address] [place] [address] [place] Basophils/100 WBC (Bld) 0.1 % Normal [facility] Comment on above: Order Comment: Speci men Type: BLOOD SPECIMEN [facility] Address: [address] [place] [address] Performed By: #### 5 7021-8 #### [facility] CLIA [id number] [address] [place] [address] [place] Differential cell count method Nom (Bld) Auto Normal [facility] Comment on above: Order Comment: Speci men Type: BLOOD SPECIMEN [facility] Address: [address] [place] [address] Performed By: #### 5 7021-8 #### [facility] CLIA [id number] [address] [place] [address] [place] Eosinophils (Bld) [#/Vol] 10*3/uL Normal <0.46 [facility] Comment on above: Order Comment: Speci men Type: BLOOD SPECIMEN [facility] Address: [address] [place] [address] Performed By: #### 5 7021-8 #### [facility] CLIA [id number] [address] [place] [address] [place] Eosinophils/100 WBC (Bld) 0.1 % Normal [facility] Comment on above: Order Comment: Speci men Type: BLOOD SPECIMEN [facility] Address: [address] [place] [address] Performed By: #### 5 7021-8 #### [facility] CLIA [id number] [address] [place] [address] [place] Erythrocyte distribution width (RBC) [Ratio] 14.6 % Normal 11.5-15.0 [facility] Comment on above: Order Comment: Speci men Type: BLOOD SPECIMEN [facility] Address: [address] [place] [address] Performed By: #### 5 7021-8 #### [facility] CLIA [id number] [address] [place] [address] [place] Hematocrit (Bld) [Volume fraction] 33.0 % Low 39.0-51.0 [facility] Comment on above: Order Comment: Speci men Type: BLOOD SPECIMEN [facility] Address: [address] [place] [address] Performed By: #### 5 7021-8 #### [facility] CLIA [id number] [address] [place] [address] [place] Hemoglobin (Bld) [Mass/Vol] 10.5 g/dL Low 13.0-17.0 [facility] Comment on above: Order Comment: Speci men Type: BLOOD SPECIMEN [facility]ing [facility] Address: [address] [place] [address] Performed By: #### 5 7021-8 #### [facility] CLIA [id number] [address] [place] [address] [place] Immature granulocytes (Bld) [#/Vol] 0.05 10*3/uL Normal <0.10 [facility] Comment on above: Order Comment: Speci men Type: BLOOD SPECIMEN Ordering [facility]: [facility] Address: [address] [place] [address] Performed By: #### 5 7021-8 #### [facility] CLIA [id number] [address] [place] [address] [place] Immature granulocytes/100 WBC (Bld) 0.4 % Normal [facility] Comment on above: Order Comment: Speci men Type: BLOOD SPECIMEN Ordering Facility: [facility] Address: [address] [place] [address] Performed By: #### 5 7021-8 #### [facility] CLIA [id number] [address] [place] [address] [place] Lymphocytes (Bld) [#/Vol] 1.25 10*3/uL Normal 1.00-4.00 [facility] Comment on above: Order Comment: Speci men Type: BLOOD SPECIMEN Ordering Facility: [facility] Address: [address] [place] [address] Performed By: #### 5 7021-8 #### [facility] CLIA [id number] [address] [place] [address] [place] Lymphocytes/100 WBC (Bld) 8.9 % Normal [facility] Comment on above: Order Comment: Speci men Type: BLOOD SPECIMEN Ordering Facility: [facility] Address: [address] [place] [address] Performed By: #### 5 7021-8 #### [facility] CLIA [id number] [address] [place] [address] [place] MCH (RBC) [Entitic mass] 26.9 pg Normal 26.0-34.0 [facility] Comment on above: Order Comment: Speci men Type: BLOOD SPECIMEN Ordering Facility: [facility] Address: [address] [place] [address] Performed By: #### 5 7021-8 #### [facility] CLIA [id number] [address] [place] [address] [place] MCHC (RBC) [Mass/Vol] 31.8 g/dL Normal 30.5-36.0 [facility] Comment on above: Order Comment: Speci men Type: BLOOD SPECIMEN Ordering Facility: [facility] Address: [address] [place] [address] Performed By: #### 5 7021-8 #### [facility] CLIA [id number] [address] [place] [address] [place] MCV (RBC) [Entitic vol] 84.6 fL Normal 80.0-100.0 [facility] Comment on above: Order Comment: Speci men Type: BLOOD SPECIMEN Ordering Facility: [facility] Address: [address] [place] [address] Performed By: #### 5 7021-8 #### [facility] CLIA [id number] [address] [place] [address] [place] Monocytes (Bld) [#/Vol] 1.50 10*3/uL High <0.87 [facility] Comment on above: Order Comment: Speci men Type: BLOOD SPECIMEN Ordering Facility: [facility] Address: [address] [place] [address] Performed By: #### 5 7021-8 #### [facility] CLIA [id number] [address] [place] [address] [place] Monocytes/100 WBC (Bld) 10.6 % Normal [facility] Comment on above: Order Comment: Speci men Type: BLOOD SPECIMEN Ordering Facility: [facility] Address: [address] [place] [address] Performed By: #### 5 7021-8 #### [facility] CLIA [id number] [address] [place] [address] [place] Neutrophils (Bld) [#/Vol] 11.26 10*3/uL High 1.45-7.50 [facility] Comment on above: Order Comment: Speci men Type: BLOOD SPECIMEN Ordering Facility: [facility] Address: [address] [place] [address] Performed By: #### 5 7021-8 #### [facility] CLIA [id number] [address] [place] [address] [place] Neutrophils/100 WBC (Bld) 79.9 % Normal [facility] Comment on above: Order Comment: Speci men Type: BLOOD SPECIMEN Ordering Facility: [facility] Address: [address] [place] [address] Performed By: #### 5 7021-8 #### [facility] CLIA [id number] [address] [place] [address] [place] Nucleated RBC (Bld) [#/Vol] 10*3/uL Normal <0.01 [facility] Comment on above: Order Comment: Speci men Type: BLOOD SPECIMEN Ordering Facility: [facility] Address: [address] [place] [address] Performed By: #### 5 7021-8 #### [facility] CLIA [id number] [address] [place] [address] [place] Nucleated RBC/100 WBC (Bld) [Ratio] 0.0 /100 WBC Normal [facility] Comment on above: Order Comment: Speci men Type: BLOOD SPECIMEN Ordering Facility: [facility] Address: [address] [place] [address] Performed By: #### 5 7021-8 #### [facility] CLIA [id number] [address] [place] [address] [place] Platelet mean volume (Bld) [Entitic vol] 9.4 fL Normal 9.0-12.7 [facility] Comment on above: Order Comment: Speci men Type: BLOOD SPECIMEN Ordering Facility: [facility] Address: [address] [place] [address] Performed By: #### 5 7021-8 #### [facility] CLIA [id number] [address] [place] [address] [place] Platelets (Bld) [#/Vol] 151 10*3/uL Normal 150-400 [facility] Comment on above: Order Comment: Speci men Type: BLOOD SPECIMEN Ordering Facility: [facility] Address: [address] [place] [address] Performed By: #### 5 7021-8 #### [facility] CLIA [id number] [address] [place] [address] [place] RBC (Bld) [#/Vol] 3.90 10*6/uL Low 4.20-6.00 [facility] Comment on above: Order Comment: Speci men Type: BLOOD SPECIMEN Ordering Facility: [facility] Address: [address] [place] [address] Performed By: #### 5 7021-8 #### [facility] CLIA [id number] [address] [place] [address] [place] WBC (Bld) [#/Vol] 14.09 10*3/uL High 3.70-11.00 [facility] Comment on above: Order Comment: Speci men Type: BLOOD SPECIMEN Ordering Facility: [facility] Address: [address] [place] [address] Performed By: #### 5 7021-8 #### [facility] CLIA [id number] [address] [place] [address] [place] CONFIRM BLOOD TYPEon 024 ABO A Normal [facility] Comment on above: Order Comment: Speci men Type: BLOOD SPECIMENOrdering Facility: [facility] Address: [address] [place] [address] Performed By: #### C ONABO ####[facility] BLO[facility] BANKCLIA [id number] [place] [address] [place] Rh Nom (Bld) Positive Normal [facility] Comment on above: Order Comment: Speci men Type: BLOOD SPECIMENOrdering Facility: [facility] Address: [address] [place] [address] Performed By: #### C ONABO ####[facility] BLOOD BANKCLIA [id number] [place] [address] [place] Magnesium SerPl-mCncon 10-28 Magnesium [Mass/Vol] 1.8 mg/dL Normal 1.7-2.3 [facility] Comment on above: Order Comment: Speci men Type: BLOOD SPECIMEN Ordering Facility: [facility] Address: [address] [place] [address] Performed By: #### 2 777-1, 48744-4, 71858-6 #### [facility] CLIA [id number] [address] [place] [address] [place] NURSING PROGon 10-29-2023 NURSING PROG HNO ID: [id number] Author: BAILEY HUTSON RN Service: Nursing Author Type: Registered Nurse Type: Nursing Progress Note Filed: 10/29/2023 18:29 Note Text: 1827 [place] [phone] to notify of patient's current temp of 100.2 F. Will continue to monitor. Normal [facility] NURSING PROG HNO ID: [id number] Author: BAILEY HUTSON RN Service: Nursing Author Type: Registered Nurse Type: Nursing Progress Note Filed: 10/29/2023 17:35 Note Text: Nursing Progress: Topic: RESTRAINT NON-VIOLENT PATIENT NAME: Johnny Devine Patient Location: H071 [id number]/[id number] Room: [place] [address] The patient demonstrates Attempting to Remove Medical Devices Vital to Medical Stability, Lack of Understanding/Ability to Comply with Safety Directions, Impulsive Behavior, Inability to be Redirected, Inability to Retain Information Regarding Safety Directions as evidenced by the following behaviors attempting to remove NG tube which pose an imminent danger to self or others. The following interventions were attempted but were not effective in protecting the patient's safety: Bed in Low/Locked Position, Planning Manager/Sitter, Diversion Activities, IV/Feeding Bag/Pump Out of Vision, Medications Reviewed, Modify Environment, Move Patient Closer to Nurses Station, Partial Bedrails Up, Re-Orientation Methods Next, a comprehensive assessment was performed and warranted placing the patient in Soft Bilateral Wrists, the least restrictive restraint needed to protect the patient's safety. Ongoing safety assessments and evaluation for earliest removal of restraints will be performed. DATE: October 29, 2023 TIME: 5:07 PM Bailey Hutson RN [facility] NURSING PROG HNO ID: [id number] Author: BAILEY HUTSON RN Service: Nursing Author Type: Registered Nurse Type: Nursing Progress Note Filed: 10/29/2023 15:25 Note Text: 1518 [place] [phone] to request indwelling Haskins for incontinence and skin breakdown management. Will continue to monitor. 1523 Patient repeatedly attempt to remove NG tube despite the sitter at the bedside. Primary team notified with request for order for bilateral soft wrist restraint. Will continue to monitor. [facility] NURSING PROG HNO ID: [id number] Author: OLIMPIA MAGALLON RN Service: Nursing Author Type: Registered Nurse Type: Nursing Progress Note Filed: 10/29/2023 13:37 Note Text: Pt resting quietly with patient half sole fitter at bedside. Several attempts to reach for NG tube, patient relaxes and moves hand away from from drain if you say hand down Per brother John Paul. This has been effective. Pt resting quietly, no facial grimacing, posturing, or guarding. Vss, resp rate even and non labored. Pt has returned to presurgical baseline and is being transferred back to [facility] in stable condition. Opening eyes when name is called. Brothcyrus Mandujano (guardian) updated prior to patient transfer. Normal [facility] OPERATIVE NOon 10-29-2023 OPERATIVE NO HNO ID: [id number] Author: SAMUEL ROBIN MD Service: General Surgery Author Type: Physician Type: Operative Report Filed: 10/29/2023 13:52 Note Text: OPERATIVE/PROCEDURE REPORT LOG ID: [id number] SURGERY/PROCEDURE DATE: 10/29/2023 INCISION/PROCEDURE START TIME: 10:25 AM INCISION CLOSE/PROCEDURE END TIME: 11:40 AM SURGEON(S)/PROCEDURAL IST(S) AND OPERATIONS RESEARCH GROUP MANAGER(S): Surgeon(s) and Role: * Samuel Robin MD - Primary * Pa Alicea MD - Assisting * Dante Cherry MD - Assisting No Additional Staff SURGERY/PROCEDURE(S): Diagnostic laparoscopy ANESTHESIA: General INDICATIONS FOR SURGERY: Johnny Devine is a 33 year old male who is non-verbal, developmental delay with no relevant PSH who presents with concern for small bowel obstruction. CT images were concerning for multiple transition points, one in the small bowel and one in the large bowel. He was decompressed with an NG tube and had some bowel function, but due to his inability to express his needs, we offered diagnostic laparoscopy with possible conversion to open. Risks and benefits were discussed with his brother (KIMMIE) and he opted to proceed. Informed consent was documented in the medical record. FINDINGS: no adhesions, no apparent hernias, dilated large and small bowel, redundant sigmoid that coursed under a large loop, concerning for sigmoid volvulus, easily reduced SURGERY/PROCEDURE DETAILS: After bringing the patient to the operating room a preoperative safety huddle was performed with his brother (KIMMIE) present answering all questions/concerns. Plans for appropriate VTE and antibiotic prophylaxis were confirmed. Patient was under general endotracheal anesthesia and the patient was then appropriately positioned supine with arms out with padding and safety belts. Adequate preoperative antibiotics were administered as per protocol. The abdomen was prepped and draped in the usual sterile fashion. A time out was performed before incision. We entered the abdomen in the right upper quadrant with a 5 mm trocar using the Optiview technique. We could plainly see significantly dilated transverse and sigmoid colon. We placed three more 5 mm ports under direct visualization - umbilicus just right of midline, left upper quadrant, and left lateral abdomen. We then ran the small bowel from terminal ileum to ligament of treitz and back again confirming no adhesions or transition points in the small bowel. There also appeared to be no internal hernias or volvulus of the small bowel We then examined the colon which appeared grossly dilated and distended throughout the entire length of the colon, all the way to the rectum. We ran the colon starting on the right side. The sigmoid colon appeared dilated and very redundant. As we traced the sigmoid colon, we discovered a decompressed limb beneath twisted beneath a very dilated proximal sigmoid over to the right pelvis and pulled it to the left side of the colon, which appeared to then open up the colon consistent with reduction of a sigmoid volvulus. The distal rectum were also dilated, which appeared to be a non-complete obstruction. The colon appeared healthy and well perfused without any concern for ischemia. At that point, I sought the opinion of Dr. Fairbanks, one of our colorectal surgeons regarding further management of this intra-op. He recommended no additional intervention or pexy given the complete reduction and this is the first episode. This then concluded the procedure. The ports were removed and skin incisions closed with 4-0 monocryl and covered with surgical glue. The patient was extubated and transferred to PACU in stable condition. Instrument counts were confirmed correct x2. PRE-OP/PRE-PROCEDURE DIAGNOSIS: concern for bowel obstruction POST-OP/POST-PROCEDUR E DIAGNOSIS: bowel obstruction due to apparent sigmoid volvulus, reduced ESTIMATED BLOOD LOSS: 5 mls SPECIMENS: None IMPLANTABLE DEVICES: NONE DRAINS: None COMPLICATIONS: None CLOSURE TECHNIQUE: Primary PARTICIPATION IN SURGERY/PROCEDURE: Residents performed the procedure under direct supervision by the primary surgeon who was present for the entirety of the case. Normal [facility] Phosphate SerPl-mCncon 10-28 Phosphate [Mass/Vol] 2.3 mg/dL Low 2.7-4.8 [facility] Comment on above: Order Comment: Speci men Type: BLOOD SPECIMEN Ordering Facility: [facility] Address: [address] [place] [address] Performed By: #### 2 777-1, 60577-8, 95100-3 #### [facility] CLIA [id number] [address] [place], [place] [address] [place] [address] [place] SEPSIS LACTATEon 10-29-2023 Lactate [Moles/Vol] 1.2 mmol/L Normal <=2.0 [facility] Comment on above: Order Comment: Speci men Type: BLOOD SPECIMENOrdering Facility: [facility] Address: [address] [place] [address] Performed By: #### S LACT ####[facility] [id number] [place] [address] [place] Order Comment: Speci men Type: BLOOD SPECIMEN Ordering Facility: [facility] Address: [address] [place] [address] Performed By: #### 2 777-1, 32507-1, #### [facility] CLIA [id number] [address] [place] [address] [place] Urinalysis complete panel (U )on 10-29-2023 Bacteria LM.HPF (Urine sed) [#/Area] Negative Normal Negative [facility] Comment on above: Order Comment: Speci men Type: BLOOD SPECIMEN Ordering Facility: [facility] Address: [address] [place] [address] Performed By: #### 2 777-1, 95482-6, #### [facility] CLIA [id number] [address] [place] [address] [place] Bilirubin Ql (U) Negative Normal Negative [facility] Comment on above: Order Comment: Speci men Type: BLOOD SPECIMEN Ordering Facility: [facility] Address: [address] [place] [address] Performed By: #### 2 777-1, 84129-5, #### [facility] CLIA [id number] [address] [place] [address] [place] Clarity (Unsp spec) Clear Normal Clear [facility] Comment on above: Order Comment: Speci men Type: BLOOD SPECIMEN Ordering Facility: [facility] Address: [address] [place] [address] Performed By: #### 2 777-1, 81322-4, #### [facility] CLIA [id number] [address] [place] [address] [place] Color (U) Yellow Normal Yellow [facility] Comment on above: Order Comment: Speci men Type: BLOOD SPECIMEN Ordering Facility: [facility] Address: [address] [place] [address] Performed By: #### 2 777-1, , #### [facility] CLIA [id number] [address] [place] [address] [place] Epithelial cells LM.HPF (Urine sed) [#/Area] None Seen Normal [facility] Comment on above: Order Comment: Speci men Type: BLOOD SPECIMEN Ordering Facility: [facility] Address: [address] [place] [address] Performed By: #### 2 777-1, , #### [facility] CLIA [id number] [address] [place] [address] [place] Glucose Test strip (U) [Mass/Vol] Negative Normal Negative [facility] Comment on above: Order Comment: Speci men Type: BLOOD SPECIMEN Ordering Facility: [facility] Address: [address] [place] [address] Performed By: #### 2 777-1, , #### [facility] CLIA [id number] [address] [place], [place] [address] [place] Hemoglobin Ql (U) 2+ Abnormal Negative [facility] Comment on above: Order Comment: Speci men Type: BLOOD SPECIMEN Ordering Facility: [facility] Address: [address] [place] [address] Performed By: #### 2 777-1, 42053-0, #### [facility] CLIA [id number] [address] [place] [address] [place] Hyaline casts (Urine sed) [#/Area] 0 /[LPF] Normal 0 /LPF [facility] Comment on above: Order Comment: Speci men Type: BLOOD SPECIMEN Ordering Facility: [facility] Address: [address] [place] [address] Performed By: #### 2 777-1, 86061-0, #### [facility] CLIA [id number] [address] [place] [address] [place] Ketones Ql (U) Negative Normal Negative [facility] Comment on above: Order Comment: Speci men Type: BLOOD SPECIMEN Ordering Facility: [facility] Address: [address] [place] [address] Performed By: #### 2 777-1, , #### [facility] CLIA [id number] [address] [place] [address] [place] Leukocyte esterase Test strip Ql (U) Negative Normal Negative [facility] Comment on above: Order Comment: Speci men Type: BLOOD SPECIMEN Ordering Facility: [facility] Address: [address] [place] [address] Performed By: #### 2 777-1, , #### [facility] CLIA [id number] [address] [place] [address] [place] Nitrite Ql (U) Negative Normal Negative [facility] Comment on above: Order Comment: Speci men Type: BLOOD SPECIMEN Ordering Facility: [facility] Address: [address] [place] [address] Performed By: #### 2 777-1, , #### [facility] CLIA [id number] [address] [place] [address] [place] pH (U) 6.5 [pH] Normal <8.5 [facility] Comment on above: Order Comment: Speci men Type: BLOOD SPECIMEN Ordering Facility: [facility] Address: [address] [place] [address] Performed By: #### 2 777-1, 11796-6, #### [facility] CLIA [id number] [address] [place] [address] [place] Protein (U) [Mass/Vol] Trace Abnormal Negative [facility] Comment on above: Order Comment: Speci men Type: BLOOD SPECIMEN Ordering Facility: [facility] Address: [address] [place] [address] Performed By: #### 2 777-1, 27611-2, #### [facility] CLIA [id number] [address] [place] [address] [place] RBC LM.HPF (Urine sed) [#/Area] 6-10 /HPF Abnormal 0-2 /HPF [facility] Comment on above: Order Comment: Speci men Type: BLOOD SPECIMEN Ordering Facility: [facility] Address: [address] [place] [address] Performed By: #### 2 777-1, , #### [facility] CLIA [id number] [address] [place] [address] [place] Specific gravity (U) [Rel density] 1.021 Normal 1.005-1.030 [facility] Comment on above: Order Comment: Speci men Type: BLOOD SPECIMEN Ordering Facility: [facility] Address: [address] [place] [address] Performed By: #### 2 777-1, 38780-0, #### [facility] CLIA [id number] [address] [place] [address] [place] Urobilinogen Ql (U) 0.2 EU/dL Normal 0.2-1.0 EU/dL [facility] Comment on above: Order Comment: Speci men Type: BLOOD SPECIMEN Ordering Facility: [facility] Address: [address] [place] [address] Performed By: #### 2 777-1, 59030-6, #### [facility] CLIA [id number] [address] [place] [address] [place] WBC LM.HPF (Urine sed) [#/Area] 0-5 /HPF Normal 0-5 /HPF [facility] Comment on above: Order Comment: Speci men Type: BLOOD SPECIMEN Ordering Facility: [facility] Address: [address] [place] [address] Performed By: #### 2 777-1, 91718-8, #### [facility] CLIA [id number] [address] [place] [address] [place] XR CHEST 1V FRONTAL PORTon 0 10-29-2023 XR CHEST 1V FRONTAL PORT * * *Final Report* * * DATE OF EXAM: Oct 28 2023 11:00PM VALERIE 5376 - XR CHEST 1V FRONTAL PORT / PROCEDURE REASON: Shortness of breath * * * * Physician Interpretation * * * * EXAMINATION: CHEST RADIOGRAPH (PORTABLE SINGLE VIEW AP) Exam Date/Time: 10/28/2023 11:00 PM Clinical History: Shortness of breath MQ: [id number] Comparison: None RESULT: Lines, tubes, and devices: NG tube is present with tip in the mid stomach. Lungs and pleura: Right hemidiaphragm is mildly elevated. Partial atelectasis is seen at the bases. Superimposed infiltrates/infection or edema cannot be entirely excluded. Trace pleural effusions or pleural thickening are present. Cardiomediastinal silhouette: Normal sized heart. Mediastinal and hilar contours are unremarkable. Other: . IMPRESSION: See result. Site Planner: PSCB Transcribe Date/Time: Oct 29 2023 12:20A Dictated by : SHEA WORTHY MD This examination was interpreted and the report reviewed and electronically signed by: SHEA WORTHY MD on Oct 29 2023 12:22AM EST [id number] Normal [facility] aPTT PPPon 10-29-2023 aPTT Coag (PPP) [Time] 26.3 s Normal 23.0-32.4 [facility] Comment on above: Order Comment: Speci men Type: BLOOD SPECIMEN Ordering Facility: [facility] Address: [address] [place] [address] Performed By: #### 2 777-1, 39039-8, #### [facility] CLIA [id number] [address] [place] [address] [place] Basic metabolic 2000 panelon 10-28-2023 Anion gap [Moles/Vol] 12 mmol/L Normal 9-18 [facility] Comment on above: Order Comment: Speci men Type: BLOOD SPECIMEN Ordering Facility: [facility] Address: [address] [place] [address] Performed By: #### 2 777-1, 62694-1, #### [facility] CLIA [id number] [address] [place] [address] [place] Calcium [Mass/Vol] 7.8 mg/dL Low 8.5-10.2 [facility] Comment on above: Order Comment: Speci men Type: BLOOD SPECIMEN Ordering Facility: [facility] Address: [address] [place] [address] Performed By: #### 2 777-1, 74795-1, #### [facility] CLIA [id number] [address] [place] [address] [place] Chloride [Moles/Vol] 110 mmol/L High 97-105 [facility] Comment on above: Order Comment: Speci men Type: BLOOD SPECIMEN Ordering Facility: [facility] Address: [address] [place] [address] Performed By: #### 2 777-1, 82940-8, #### [facility] CLIA [id number] [address] [place] [address] [place] CO2 [Moles/Vol] 15 mmol/L Low 22-30 [facility] Comment on above: Order Comment: Speci men Type: BLOOD SPECIMEN Ordering Facility: [facility] Address: [address] [place] [address] Performed By: #### 2 777-1, 32713-1, #### [facility] CLIA [id number] [address] [place] [address] [place] Creatinine [Mass/Vol] 0.72 mg/dL Low 0.73-1.22 [facility] Comment on above: Order Comment: Speci men Type: BLOOD SPECIMEN Ordering Facility: [facility] Address: [address] [place] [address] Performed By: #### 2 777-1, 49763-1, #### [facility] CLIA [id number] [address] [place] [address] [place] Creatinine and Glomerular filtration rate.predicted panel (S/P/Bld) 125 mL/min/1.73m??? Normal >=60 [facility] Comment on above: Order Comment: Sana zuñiga Type: BLOOD SPECIMEN Ordering Facility: [facility] Address: [address] [place] [address] Result Comment: Lor mated Glomerular Filtration Rate (eGFR) is calculated using the 2020 CKD-EPI creatinine equation. This equation utilizes serum creatinine, sex, and age as parameters. The creatinine assay has traceable calibration to isotope dilution-mass spectrometry. Refer to KDIGO guidelines for clinical interpretation. In patients with unstable renal function, e.g. those with acute kidney injury, the eGFR may not accurately reflect actual GFR. Performed By: #### 2 777-1, 50875-8, #### [facility] CLIA [id number] [address] [place] [address] [place] Glucose [Mass/Vol] 116 mg/dL High 74-99 [facility] Comment on above: Order Comment: Speci men Type: BLOOD SPECIMEN Ordering Facility: [facility] Address: [address] [place], [place] [address] Result Comment: The [place] [employer] (ADA) provides guidance for cutoff values for fasting glucose and random glucose. The ADA defines fasting as no caloric intake for at least 8 hours. Fasting plasma glucose results between 100 to 125 mg/dL indicate increased risk for diabetes (prediabetes). Fasting plasma glucose results greater than or equal to 126 mg/dL meet the criteria for diagnosis of diabetes. In the absence of unequivocal hyperglycemia, results should be confirmed by repeat testing. In a patient with classic symptoms of hyperglycemia or hyperglycemic crisis, random plasma glucose results greater than or equal to 200 mg/dL meet the criteria for diagnosis of diabetes. Reference: Standards of Medical Care in Diabetes 2016, [place] [employer]. Diabetes Care. 2016.39(Suppl 1). Performed By: #### 2 777-1, 31890-8, #### [facility] CLIA [id number] [address] [place] [address] [place] Potassium [Moles/Vol] 3.9 mmol/L Normal 3.7-5.1 [facility] Comment on above: Order Comment: Sana zuñiga Type: BLOOD SPECIMEN Ordering Facility: [facility] Address: [address] [place] [address] Performed By: #### 2 777-1, , #### [facility] CLIA [id number] [address] [place] [address] [place] Sodium [Moles/Vol] 137 mmol/L Normal 136-144 [facility] Comment on above: Order Comment: Sana zuñiga Type: BLOOD SPECIMEN Ordering Facility: [facility] Address: [address] [place] [address] Performed By: #### 2 777-1, , #### [facility] CLIA [id number] [address] [place], [place] [address] [place] Urea nitrogen [Mass/Vol] 17 mg/dL Normal 9-24 [facility] Comment on above: Order Comment: Speci men Type: BLOOD SPECIMEN Ordering Facility: [facility] Address: [address] [place] [address] Performed By: #### 2 777-1, 04450-5, #### [facility] CLIA [id number] [address] [place], [place] [address] [place] CBC W Auto Differential pane l (Bld)on 10-28-2023 Basophils (Bld) [#/Vol] 10*3/uL Normal <0.11 [facility] Comment on above: Order Comment: Speci men Type: BLOOD SPECIMEN Ordering Facility: [facility] Address: [address] [place] [address] Performed By: #### 2 777-1, 67728-1, #### [facility] CLIA [id number] [address] [place] [address] [place] Basophils/100 WBC (Bld) 0.1 % Normal [facility] Comment on above: Order Comment: Speci men Type: BLOOD SPECIMEN Ordering Facility: [facility] Address: [address] [place] [address] Performed By: #### 2 777-1, 52082-3, #### [facility] CLIA [id number] [address] [place] [address] [place] Differential cell count method Nom (Bld) Auto Normal [facility] Comment on above: Order Comment: Speci men Type: BLOOD SPECIMEN Ordering Facility: [facility] Address: [address] [place] [address] Performed By: #### 2 777-1, 98699-2, #### [facility] CLIA [id number] [address] [place], [place] [address] [place] Eosinophils (Bld) [#/Vol] 10*3/uL Normal <0.46 [facility] Comment on above: Order Comment: Speci men Type: BLOOD SPECIMEN Ordering Facility: [facility] Address: [address] [place] [address] Performed By: #### 2 777-1, 43351-3, #### [facility] CLIA [id number] [address] [place] [address] [place] Eosinophils/100 WBC (Bld) 0.0 % Normal [facility] Comment on above: Order Comment: Speci men Type: BLOOD SPECIMEN Ordering Facility: [facility] Address: [address] [place] [address] Performed By: #### 2 777-1, 41147-5, #### [facility] CLIA [id number] [address] [place] [address] [place] Erythrocyte distribution width (RBC) [Ratio] 14.4 % Normal 11.5-15.0 [facility] Comment on above: Order Comment: Speci men Type: BLOOD SPECIMEN Ordering Facility: [facility] Address: [address] [place] [address] Performed By: #### 2 777-1, 92079-7, #### [facility] CLIA [id number] [address] [place] [address] [place] Hematocrit (Bld) [Volume fraction] 38.3 % Low 39.0-51.0 [facility] Comment on above: Order Comment: Speci men Type: BLOOD SPECIMEN Ordering Facility: [facility] Address: [address] [place], [place] [address] Performed By: #### 2 777-1, 73637-7, #### [facility] CLIA [id number] [address] [place] [address] [place] Hemoglobin (Bld) [Mass/Vol] 12.0 g/dL Low 13.0-17.0 [facility] Comment on above: Order Comment: Speci men Type: BLOOD SPECIMEN Ordering Facility: [facility] Address: [address] [place] [address] Performed By: #### 2 777-1, 64484-4, #### [facility] CLIA [id number] [address] [place] [address] [place] Immature granulocytes (Bld) [#/Vol] 0.08 10*3/uL Normal <0.10 [facility] Comment on above: Order Comment: Speci men Type: BLOOD SPECIMEN Ordering Facility: [facility] Address: [address] [place] [address] Performed By: #### 2 777-1, 37060-7, #### [facility] CLIA [id number] [address] [place] [address] [place] Immature granulocytes/100 WBC (Bld) 0.6 % Normal [facility] Comment on above: Order Comment: Speci men Type: BLOOD SPECIMEN Ordering Facility: [facility] Address: [address] [place] [address] Performed By: #### 2 777-1, 14081-1, #### [facility] CLIA [id number] [address] [place] [address] [place] Lymphocytes (Bld) [#/Vol] 1.19 10*3/uL Normal 1.00-4.00 [facility] Comment on above: Order Comment: Speci men Type: BLOOD SPECIMEN Ordering Facility: [facility] Address: [address] [place] [address] Performed By: #### 2 777-1, 96202-1, #### [facility] CLIA [id number] [address] [place] [address] [place] Lymphocytes/100 WBC (Bld) 8.2 % Normal [facility] Comment on above: Order Comment: Speci men Type: BLOOD SPECIMEN Ordering Facility: [facility] Address: [address] [place] [address] Performed By: #### 2 777-1, 26002-9, #### [facility] CLIA [id number] [address] [place] [address] [place] MCH (RBC) [Entitic mass] 26.5 pg Normal 26.0-34.0 [facility] Comment on above: Order Comment: Speci men Type: BLOOD SPECIMEN Ordering Facility: [facility] Address: [address] [place] [address] Performed By: #### 2 777-1, 64842-1, #### [facility] CLIA [id number] [address] [place] [address] [place] MCHC (RBC) [Mass/Vol] 31.3 g/dL Normal 30.5-36.0 [facility] Comment on above: Order Comment: Speci men Type: BLOOD SPECIMEN Ordering Facility: [facility] Address: [address] [place] [address] Performed By: #### 2 777-1, 05346-3, #### [facility] CLIA [id number] [address] [place] [address] [place] MCV (RBC) [Entitic vol] 84.5 fL Normal 80.0-100.0 [facility] Comment on above: Order Comment: Speci men Type: BLOOD SPECIMEN Ordering Facility: [facility] Address: [address] [place] [address] Performed By: #### 2 777-1, 78150-8, #### [facility] CLIA [id number] [address] [place] [address] [place] Monocytes (Bld) [#/Vol] 1.48 10*3/uL High <0.87 [facility] Comment on above: Order Comment: Speci men Type: BLOOD SPECIMEN Ordering Facility: [facility] Address: [address] [place] [address] Performed By: #### 2 777-1, 93394-4, #### [facility] CLIA [id number] [address] [place] [address] [place] Monocytes/100 WBC (Bld) 10.2 % Normal [facility] Comment on above: Order Comment: Speci men Type: BLOOD SPECIMEN Ordering Facility: [facility] Address: [address] [place] [address] Performed By: #### 2 777-1, 68533-0, #### [facility] CLIA [id number] [address] [place] [address] [place] Neutrophils (Bld) [#/Vol] 11.69 10*3/uL High 1.45-7.50 [facility] Comment on above: Order Comment: Speci men Type: BLOOD SPECIMEN Ordering Facility: [facility] Address: [address] [place] [address] Performed By: #### 2 777-1, 64791-7, #### [facility] CLIA [id number] [address] [place] [address] [place] Neutrophils/100 WBC (Bld) 80.9 % Normal [facility] Comment on above: Order Comment: Speci men Type: BLOOD SPECIMEN Ordering Facility: [facility] Address: [address] [place] [address] Performed By: #### 2 777-1, 99168-2, #### [facility] CLIA [id number] [address] [place], [place] [address] [place] Nucleated RBC (Bld) [#/Vol] 10*3/uL Normal <0.01 [facility] Comment on above: Order Comment: Speci men Type: BLOOD SPECIMEN Ordering Facility: [facility] Address: [address] [place] [address] Performed By: #### 2 777-1, , #### [facility] CLIA [id number] [address] [place] [address] [place] Nucleated RBC/100 WBC (Bld) [Ratio] 0.0 /100 WBC Normal [facility] Comment on above: Order Comment: Speci men Type: BLOOD SPECIMEN Ordering Facility: [facility] Address: [address] [place] [address] Performed By: #### 2 777-1, 69532-1, #### [facility] CLIA [id number] [address] [place], [place] [address] [place] Platelet mean volume (Bld) [Entitic vol] 9.3 fL Normal 9.0-12.7 [facility] Comment on above: Order Comment: Speci men Type: BLOOD SPECIMEN Ordering Facility: [facility] Address: [address] [place] [address] Performed By: #### 2 777-1, , #### [facility] CLIA [id number] [address] [place] [address] [place] Platelets (Bld) [#/Vol] 180 10*3/uL Normal 150-400 [facility] Comment on above: Order Comment: Speci men Type: BLOOD SPECIMEN Ordering Facility: [facility] Address: [address] [place] [address] Performed By: #### 2 777-1, , #### [facility] CLIA [id number] [address] [place] [address] [place] RBC (Bld) [#/Vol] 4.53 10*6/uL Normal 4.20-6.00 [facility] Comment on above: Order Comment: Speci men Type: BLOOD SPECIMEN Ordering Facility: [facility] Address: [address] [place] [address] Performed By: #### 2 777-1, 85554-2, #### [facility] CLIA [id number] [address] [place] [address] [place] WBC (Bld) [#/Vol] 14.46 10*3/uL High 3.70-11.00 [facility] Comment on above: Order Comment: Speci men Type: BLOOD SPECIMEN Ordering Facility: [facility] Address: [address] [place] [address] Performed By: #### 2 777-1, 79465-1, #### [facility] CLIA [id number] [address] [place] [address] [place] HISTORY PHYSICALon HISTORY PHYSICAL HNO ID: [id number] Author: SAMUEL ROBIN MD Service: General Surgery Author Type: Resident Type: H&P Filed: 10/29/2023 08:50 Note Text: Attestation signed by Samuel Robin MD at 10/29/2023 8:50 AM Attending Note I evaluated the patient and personally participated in the knox components. I agree with the resident's findings and plan with the following revisions and/or additions: SBO, dehydration - no previous abdominal surgeries. NG tube is difficult to maintain due to delirium and baseline cognitive status. Given appearance of CT and mental state, would recommend early operative intervention for this. If abdomen can be decompressed enough with NG, then possible diagnostic laparoscopy, possible open, possible bowel resection. If not, then exploratory laparotomy. Signature: Samuel Robin MD Date: 10/29/2023 Time: 8:44 AM ACUTE CARE SURGERY HISTORY AND PHYSICAL NOTE Service Date: 10/28/2023 Admit Date: 10/28/2023 Service Time: 4:16 PM LOS: 0 Attending Surgeon: Samuel Robin MD Subjective Reason for Consult: Adhesive Small Bowel Obstruction HPI: Johnny Devine is a 33 year old male who is non-verbal, developmental delay with no relevant PSH who presents with concern for small bowel obstruction Symptom Duration: last night Abdominal Pain: unknown Nausea/Vomitin days Prior episodes of obstruction requiring hospitalization: No Relevant abdominal surgeries: None PAST MEDICAL HISTORY Diagnosis Date Atopic eczema Autism disorder Bipolar 1 disorder (HCC) Cataracts, bilateral Developmental non-verbal disorder Mental retardation associated with Fragile X syndrome Obsessive compulsive disorder PAST SURGICAL HISTORY Procedure Laterality Date DENTAL SURGERY HX No family history on file. Social History Tobacco Use Smoking status: Unknown Vaping Use Vaping Use: Never used Substance Use Topics Alcohol use: Never Drug use: Never atorvastatin (LIPITOR) 10 mg tablet, , Disp: , Rfl: clomiPRAMINE (ANAFRANIL) 75 mg capsule, , Disp: , Rfl: cloNIDine HCl (CATAPRES) 0.2 mg tablet, , Disp: , Rfl: famotidine (PEPCID) 20 mg tablet, , Disp: , Rfl: fluticasone (FLONASE) 50 mcg/actuation nasal spray, INSTILL 2 SPRAYS PER NOSTRIL EVERY MORNING FOR SINUS CONGESTION, Disp: , Rfl: guanFACINE (INTUNIV ER) 4 mg Tb24, , Disp: , Rfl: levothyroxine (SYNTHROID) 112 mcg tablet, , Disp: , Rfl: LINZESS 290 mcg capsule, Take 290 mcg by mouth once daily., Disp: , Rfl: lithium carbonate (ESKALITH) 300 mg capsule, , Disp: , Rfl: LORazepam (ATIVAN) 2 mg tab, TAKE ONE TABLET BY MOUTH 3 TIMES DAILY ATIVAN, Disp: , Rfl: metoprolol tartrate, short acting, (LOPRESSOR) 50 mg tablet, , Disp: , Rfl: MUCUS RELIEF ER 600 mg 12 hr tablet, Take 600 mg by mouth twice daily., Disp: , Rfl: naltrexone (TREXAN) 50 mg tablet, TAKE TWO TABLETS BY MOUTH TWICE DAILY REVIA, Disp: , Rfl: OYSTER SHELL CALCIUM-VITAMIN D 500 mg-5 mcg (200 unit) per tablet, Take 1 tablet by mouth twice daily., Disp: , Rfl: polyethylene glycol 3350 (MIRALAX, GLYCOLAX) 17 gram/dose powder, TAKE 17G WITH LIQUID BY MOUTH DAILY IN THE MORNING, Disp: , Rfl: QUEtiapine (SEROQUEL) 200 mg tablet, , Disp: , Rfl: Sennosides 8.6 mg cap, Take by mouth., Disp: , Rfl: risperiDONE (RISPERDAL) 3 mg tablet, , Disp: , Rfl: sertraline (ZOLOFT) 100 mg tablet, , Disp: , Rfl: No current facility-administered medications for this encounter. ALLERGIES Allergen Reactions Biaxin [Clarithromy* Other: See Comments caregiver does not know Medication and Non-Pharmacologic VTE Prophylaxis/Anticoagu lants VTE Prophylaxis: VTE prophylaxis appropriate COMPLETE REVIEW OF SYSTEMS: CONSTITUTIONAL: No weight loss, malaise or fevers. HEENT: No changes in hearing or vision, no nose bleeds or other nasal problems. RESPIRATORY: Negative for cough, wheezing, or shortness of breath CARDIOVASCULAR: Negative for chest pain, leg swelling or palpitations GI: Negative for melena, or hematochezia, Positive for nausea, vomiting, obstipation : No history of dysuria, frequency, or hematuria MUSCULOSKELETAL: Negative for joint pain or swelling ENDOCRINE: Negative for cold or heat intolerance HEMATOLOGIC/LYMPHATIC : Negative for prolonged bleeding, or bruising easily. NEUROLOGIC: No history of syncope, paralysis, seizures or tremors. INTEGUMENTARY: Negative for lesions, rash, and itching. Objective PHYSICAL EXAM: There were no vitals taken for this visit. CONSTITUTIONAL: Laying in bed in no acute distress, patient nonverbal NEUROLOGIC/PSYCHIATRI C: Alert, Oriented x3 HEENT: Sclera non-icteric LUNGS: Clear to auscultation bilaterally, no increased work of breathing on room air HEART: Regular rate and rhythm ABDOMEN: Distended, nontender INTEGUMENTARY: No a (more content not included)... Normal [facility] Magnesium [Mass/Vol] 1.8 mg/dL Normal 1.7-2.3 [facility] Comment on above: Order Comment: Sana zuñiga Type: BLOOD SPECIMEN Ordering Facility: [facility] Address: [address] [place] [address] Performed By: #### 2 777-1, 63063-2, #### [facility] CLIA [id number] [address] [place] [address] [place] PT panel Coag (PPP)on 2023 INR Coag (PPP) [Relative time] 1.2 {INR} Normal 0.9-1.3 [facility] Comment on above: Order Comment: Sana zuñiga Type: BLOOD SPECIMEN Ordering Facility: [facility] Address: [address] [place] [address] Result Comment: Winnie min K Antagonist (VKA) Therapeutic Range: INR 2 to 3 (Target INR of 2.5) Note: For patients treated with VKA drugs, such as warfarin, the [place] [employer] 2012 Guideline recommends a therapeutic INR range of 2 to 3 (target INR of 2.5). This recommendation includes high-risk patients with antiphospholipid syndrome with previous arterial or venous thromboembolism, current-generation mechanical or bioprosthetic aortic heart valve replacement. Note: Patients with mechanical aortic valve replacement and additional risk factors for thromboembolic events (atrial fibrillation, previous thromboembolism, LV dysfunction, hypercoagulable conditions) or an older generation mechanical AVR (i.e., ball in-Cage) or any mechanical MVR should have a INR therapeutic range of 2.5 to 3.5 (target INR of 3). Guerline GH, et al. Chest 2012, 141:7S-47S Jonny RA et al. [employer] 2017, 70: 252-289 Performed By: #### 2 777-1, 57285-1, #### [facility] CLIA [id number] [address] [place] [address] [place] PT Coag (PPP) [Time] 12.3 s Normal 9.7-13.0 [facility] Comment on above: Order Comment: Sana zuñiga Type: BLOOD SPECIMEN Ordering Facility: [facility] Address: [address] [place] [address] Performed By: #### 2 777-1, 27229-4, #### [facility] CLIA [id number] [address] [place] [address] [place] Phosphate SerPl-mCncon 10-27 Phosphate [Mass/Vol] 3.2 mg/dL Normal 2.7-4.8 [facility] Comment on above: Order Comment: Speci men Type: BLOOD SPECIMEN Ordering Facility: [facility] Address: [address] [place] [address] Performed By: #### 2 777-1, 64301-5, #### [facility] CLIA [id number] [address] [place] [address] [place] SEPSIS LACTATEon 10-28-2023 Lactate [Moles/Vol] 2.0 mmol/L Normal <=2.0 [facility] Comment on above: Order Comment: Speci men Type: BLOOD SPECIMENOrdering Facility: [facility] Address: [address] [place] [address] Performed By: #### S LACT ####[facility] [id number] [place] [address] [place] TYPE + SCREENon 10-28-2023 ABO A Normal [facility] Comment on above: Order Comment: Speci men Type: BLOOD SPECIMEN Ordering Facility: [facility] Address: [address] [place] [address] Performed By: #### 2 4321-2, 60742-7, 2777-1 #### [facility] CLIA [id number] [address] [place] [address] [place] HISTORICAL AB SCR STATUS Negative Normal [facility] Comment on above: Order Comment: Speci men Type: BLOOD SPECIMEN Ordering Facility: [facility] Address: [address] [place] [address] Performed By: #### 2 4321-2, 77048-9, 2777-1 #### [facility] CLIA [id number] [address] [place], [place] [address] [place] Rh Nom (Bld) Positive Normal [facility] Comment on above: Order Comment: Speci men Type: BLOOD SPECIMEN Ordering Facility: [facility] Address: [address] [place] [address] Performed By: #### 2 4321-2, 51526-7, 277- #### [facility] CLIA [id number] [address] [place], [place] [address] [place] TYPE AND SCREEN EXPIRATION 10/31/2023 23:59 Normal [facility] Comment on above: Order Comment: Speci men Type: BLOOD SPECIMEN Ordering Facility: [facility] Address: [address] [place] [address] Performed By: #### 2 4321-2, , 2777 #### [facility] CLIA [id number] [address] [place], [place] [address] [place] XR ABDOMEN 1V SUPINEon 10-27 XR ABDOMEN 1V SUPINE * * *Final Report* * * DATE OF EXAM: Oct 28 2023 5:24PM VALERIE 5289 - XR ABDOMEN 1V SUPINE / PROCEDURE REASON: Bowel obstruction suspected * * * * Physician Interpretation * * * * ABDOMEN, 1 VIEW 10/28/2023 labeled 1708 CLINICAL INFORMATION: Bowel obstruction suspected TECHNIQUE: Supine frontal view, 3 image(s) COMPARISON: Outside CT abdomen/pelvis, 10/27/2023 RESULT: See impression. IMPRESSION: NG tube tip in stomach with side port below the diaphragm. Gastric dilation has essentially resolved. Persistently dilated small bowel and sigmoid colon, probably ongoing bowel obstruction based on the prior CT (transition points in both the small and large bowel in the right lower quadrant on the outside CT). Site Planner: PSCB Transcribe Date/Time: Oct 28 2023 5:30P Dictated by : WALTER BURGER MD This examination was interpreted and the report reviewed and electronically signed by: WALTER BURGER MD on Oct 28 2023 5:47PM EST [id number] Normal [facility] Anesthesia Preprocedure Dwaine menchaca 07-16-2023 Financial Sales Manager Authentication Interface Message Text ASA: 2 No [...] were discussed with the patient and/or legal investment representative. The risks, benefits and alternatives were reviewed. Questions regarding anesthesia were answered. Patient and/or legal investment representative knows such anesthetics and procedures may be performed by Resident physicians, Certified Anesthesiologist Assistants, or Certified Nurse Anesthetists under the supervision of a physician. The patient /or the patient's legal investment representative agree with the plan for anesthesia. [...] physical activity. EKG performed showing marked sinus ankita, no AV conduction blockade. Reviewed previous vital signs and EKGs and this appears to be a new event. Sent to the ED for evaluation. I explained the reason elective surgeon should be cancelled today with his caregiver who understood. Normal [facility] BASIC METABOLIC PANELon 11-2 Anion gap [Moles/Vol] 15 mmol/L Normal 10-20 [facility] Comment on above: Performed By: #### C H8 ####[facility] [address] [place], [address] Calcium [Mass/Vol] 9.6 mg/dL Normal 8.6-10.3 [facility] Comment on above: Result Comment: Note updated reference ranges. Performed By: #### C H8 ####[facility] [id number] [place] [address], [address] Chloride [Moles/Vol] 104 mmol/L Normal 98-107 [facility] Comment on above: Result Comment: Note updated reference ranges. Performed By: #### C H8 ####[facility] [address] [place], [address] CO2 [Moles/Vol] 25 mmol/L Normal 21-31 [facility] Comment on above: Result Comment: Note updated reference ranges. Performed By: #### C H8 ####[facility] [address] [place], [address] Creatinine [Mass/Vol] 0.94 mg/dL Normal 0.70-1.30 [facility] Comment on above: Result Comment: Note updated reference ranges. Performed By: #### C H8 ####[facility] [id number] [place] [address], [address] ESTIMATED GFR (CKD-EPI) 112 mL/min/1.73sqm Normal >=60 [...] Inclusion of Race in Diagnosing Kidney Disease. [place] Journal of Kidney Diseases 2021;79(2):268-88.e1. 2. N Engl J Med 1 Vol. 385 Issue 19 Pages 9668-5628 Performed By: #### C H8 ####[facility] [address] [place], [address] Glucose [Mass/Vol] 84 mg/dL Normal 74-109 [facility] Comment on above: Performed By: #### C H8 ####[facility] [address] [place], [address] Potassium [Moles/Vol] 4.9 mmol/L Normal 3.5-5.0 [facility] Comment on above: Result Comment: Note updated reference ranges. Note updated reference ranges. Performed By: #### C H8 ####[facility] [address] [place], [address] Sodium [Moles/Vol] 139 mmol/L Normal 136-145 [facility] Comment on above: Result Comment: Note updated reference ranges. Performed By: #### C H8 ####[facility] [address] [place], [address] Urea nitrogen [Mass/Vol] 21 mg/dL Normal 7-25 [facility] Comment on above: Result Comment: Note updated reference ranges. Performed By: #### C H8 ####[facility] [address] [place], [address] Basic metabolic 2000 panelOr dered By: Vandana Ace on 07-16-2023 Anion gap [Moles/Vol] 15 mmol/L 10 - 20 [facility] Calcium [Mass/Vol] 9.6 mg/dL 8.6 - 10. 3 mg/dL [facility] Comment on above: Note updated [...] Inclusion of Race in Diagnosing Kidney Disease. [place] Journal of Kidney Diseases 2021;79(2):268-88.e1. 2. N Engl J Med 2020 Vol. 385 Issue 19 Pages 5947-3005 Glucose [Mass/Vol] 84 mg/dL 74 - 109 mg/dL [facility] Interpretation and review of laboratory results Normal [...] ce ranges. [facility] Brief Operative Noteon 07-16 Financial Sales Manager Authentication Interface Message Text Cancelled Case was cancelled. Pt has very low heart rate, that compromises GA/ per anesthesia team. Normal [facility] CBC WITH DIFFERENTIALon 06-21 Basophils (Bld) [#/Vol] 0.10 10*3/uL Normal 0.00-0.20 [facility] Comment on above: Performed By: #### C BCDSAT ####[facility] [address] [place], [address] Basophils/100 WBC (Bld) 0.6 % Normal <=1.9 [facility] Comment on above: Performed By: #### C BCDSAT ####[facility] [address] [place], [address] Eosinophils (Bld) [#/Vol] 0.30 10*3/uL Normal 0.00-0.70 [facility] Comment on above: Performed By: #### C BCDSAT ####[facility] [address] [place] [address], [address] Eosinophils/100 WBC (Bld) 3.1 % Normal 0.1-4.0 [facility] Comment on above: Performed By: #### C BCDSAT ####[facility] [address] [place] [address], [address] Erythrocyte distribution width (RBC) [Ratio] 14.2 % Normal 11.5-14.5 [facility] Comment on above: Performed By: #### C BCDSAT ####[facility] [address] [place] [address], [address] Hematocrit (Bld) [Volume fraction] 38.4 % Low 41.0-53.0 [facility] Comment on above: Performed By: #### C BCDSAT ####[facility] [address] [place] [address], [address] Hemoglobin (Bld) [Mass/Vol] 12.6 g/dL Low 13.9-16.3 [facility] Comment on above: Performed By: #### C BCDSAT ####[facility] [address] [place] [address], [address] Lymphocytes (Bld) [#/Vol] 3.20 10*3/uL Normal 1.00-4.80 [facility] Comment on above: Performed By: #### C BCDSAT ####[facility] [address] [place] [address], [address] Lymphocytes/100 WBC (Bld) 36.8 % Normal 24.0-44.0 [facility] Comment on above: Performed By: #### C BCDSAT ####[facility] [address] [place] [address], [address] MCH (RBC) [Entitic mass] 27.4 pg Normal 26.0-34.0 [facility] Comment on above: Performed By: #### C BCDSAT ####[facility] [address] [place], [address] MCHC (RBC) [Mass/Vol] 32.8 g/dL Normal 32.0-35.9 [facility] Comment on above: Performed By: #### C BCDSAT ####[facility] [id number] [place] [address], [address] MCV (RBC) [Entitic vol] 84 fL Normal 80-100 [facility] Comment on above: Performed By: #### C BCDSAT ####[facility] [address] [place] [address], [address] Monocytes (Bld) [#/Vol] 0.80 10*3/uL Normal 0.20-1.00 [facility] Comment on above: Performed By: #### C BCDSAT ####[facility] [address] [place] [address], [address] Monocytes/100 WBC (Bld) 8.9 % Normal 2.0-11.0 [facility] Comment on above: Performed By: #### C BCDSAT ####[facility] [address] [place] [address], [address] Neutrophils (Bld) [#/Vol] 4.40 10*3/uL Normal 1.50-8.00 [facility] Comment on above: Performed By: #### C BCDSAT ####[facility] [address] [place] [address], [address] Neutrophils/100 WBC (Bld) 50.6 % Normal 31.0-76.0 [facility] Comment on above: Performed By: #### C BCDSAT ####[facility] [address] [place] [address], [address] Nucleated RBC (Bld) [#/Vol] 0.1 10*3/uL Normal [facility] Comment on above: Performed By: #### C BCDSAT ####[facility] [address] [place] [address], [address] Nucleated RBC (Bld) [#/Vol] 0.01 10*3/uL Normal [facility] Comment on above: Performed By: #### C BCDSAT ####[facility] [address] [place], [address] Platelet mean volume (Bld) [Entitic vol] 9.1 fL Normal 7.5-11.2 [facility] Comment on above: Performed By: #### C BCDSAT ####[facility] [address] [place] [address], [address] PLT Normal [facility] Comment on above: Result Comment: Plat elet cannot be quantified due to the presence of platelet clumps. Platelet estimate appears normal. Performed By: #### C BCDSAT ####[facility] [address] [place] [address], [address] RBC (Bld) [#/Vol] 4.59 10*6/uL Normal 4.50-5.90 [facility] Comment on above: Performed By: #### C BCDSAT ####[facility] [address] [place] [address], [address] WBC (Bld) [#/Vol] 8.6 10*3/uL Normal 4.5-11.5 [facility] Comment on above: Performed By: #### C BCDSAT ####[facility] [address] [place] [address], [address] Basophils (Bld) [#/Vol] 0.10 10*3/uL 0.00 - [...] [#/Vol] 4.40 10*3/uL 1.50 - 8.00 K/uL [facility] Neutrophils/100 WBC (Bld) 50.6 % 31.0 - 76.0 % [facility] Nucleated RBC (Bld) [#/Vol] 0.01 10*3/uL [facility] Nucleated RBC/100 WBC (Bld) [Ratio] 0.1 % [facility] Platelet mean volume (Bld) [Entitic vol] 9.1 fL 7.5 - 11.2 fL [facility] Platelets (Bld) [#/Vol] [facility] Comment on above: Platelet cannot be q uantified due to the presence of platelet clumps. Platelet estimate appears normal. RBC (Bld) [#/Vol] 4.59 10*6/uL [facility] WBC (Bld) [#/Vol] 8.6 10*3/uL 4.5 - 11.5 K/uL [facility]O [facility]ASTon 07-16 CT HEAD W/O CONTRAST EXAMINATION: CT HEA D W/O CONTRAST 07/16/2023 09:47 AM CLINICAL HISTORY: r/o intracranial abn - bradycardia, nonverbal patient, likes to hit head ASSOCIATED DIAGNOSIS: r/o intracranial abn - bradycardia, nonverbal patient, likes to hit head ORDERING PROVIDER: YOBANY SMITH TECHNOLOGISTS NOTE: COMPARISON: None TECHNIQUE: Thin axial [...] left caudate nucleus. MACRO: None Normal [facility] CT Head WO contrastOrdered B y: David Kay on 07-16-2023 CT DLP 1126.71 (mGy.cm) [facility]: CT Series HEAD W/O,HEAD W/O [facility] Phone: CTDI VOL 0.34 (mGy),47.31 (mGy) [facility] Work Phone: PHANTOM TYPE IEC Head Dosimetry Phantom,IEC Head Dosimetry Phantom [facility] Work Phone: [facility] Work Phone: CT Head WO contraston 2022 EXAMINATION: CT HEAD W/O CONTRAST 07/16/2023 09:47 AM CLINICAL HISTORY: r/o intracranial abn - bradycardia, nonverbal patient, likes to hit head ASSOCIATED DIAGNOSIS: r/o intracranial abn - bradycardia, nonverbal patient, likes to hit head ORDERING PROVIDER: YOBANY SMITH TECHNOLOGISTS NOTE: COMPARISON: None TECHNIQUE: Thin axial [...] caudate nucleus. MACRO: None RADIOLOGY David Kay - 07/16/2023 EXAMINATION: CT HEAD W/O CONTRAST 07/16/2023 09:47 AM CLINICAL HISTORY: r/o intracranial abn - bradycardia, nonverbal patient, likes to hit head ASSOCIATED DIAGNOSIS: r/o intracranial abn - bradycardia, nonverbal patient, likes to hit head ORDERING PROVIDER: YOBANY SMITH TECHNOLOGISTS NOTE: COMPARISON: None TECHNIQUE: Thin axial [...] in the left caudate nucleus. MACRO: None [facility] Radiology Study observation (narrative) [facility] ED Noteson 07-16-2023 Financial Sales Manager Authentication Interface Message Text Permission treat given from Cate legal guardian Normal [facility] Noteson 07-16-20 Financial Sales Manager Authentication Interface Message Text EMERGENCY DEPARTMENT - VISIT NOTE --------- HISTORY OF PRESENT ILLNESS ----- Chief Complaint Patient presents with bradycardia Low HR (33) HIPAA: Verbal permission granted from patient to discuss case, including protected health information, in front of family / friends in room at the time of the evaluation. Agriculture Teacher: not needed - patient preferred language is Ecuadorean. History from Independent Historian: Caregiver reports Pleasant [...] for dizziness, weakness, light-headedness, numbness and headaches. PAST HISTORY Pertinent Past History: No past medical history on file. Pertinent Family History: No family history on file. Pertinent Social History: Denies the use of tobacco products, heavy alcohol use or illicit drug use Social History Tobacco Use Smoking status: Never Smokeless tobacco: Never Substance Use Topics Alcohol use: Never Drug use: Never PHYSICAL EXAM - BP 110/80 Pulse (!) 37 Temp 97.5 [...] baseline. MEDICAL DECISION MAKING and ED COURSE Independent Test Interpretation: EKG personally reviewed and interpreted: EMERGENCY DEPARTMENT EKG INTERPRETATION Rhythm: Sinus bradycardia Rate: 36 NORMAL Normal conduction / intervals No atrial or ventricular hypertrophy No acute ischemic changes Comparison to prior: bradycardic now and changed from 06/22/23. Sinus bradycardia replaces NSR. -KD Impression: no acute infarction Personally reviewed and interpretated by Yobany Smith PA-C Independent Test Interpretation: Rhythm strip personally [...] decision-mariusz (more content not included)... Normal [facility] MAGNESIUMon 07-16-2023 Magnesium [Mass/Vol] 2.1 mg/dL Normal 1.6-2.8 [facility] Comment on above: Performed By: #### M G #### [facility] [address] [place], [address] Interpretation and review of laboratory results Normal [facility] Magnesium [Mass/Vol] 2.1 mg/dL 1.6 - 2 .8 mg/dL [facility] OP Noteon 07-16-2023 Financial Sales Manager Authentication Interface Message Text Cancelled Case was cancelled. Pt has very low heart rate, that compromises GA/ per anesthesia team. Normal [facility] Progress Noteson 07-16-2023 Financial Sales Manager Authentication Interface Message Text ----- Sunday, July 16, 2023 at 1:56:53 PM ----- ----- Provider: [id number] Resident Fortino -- Clinic: [place] ----- Patient was scheduled for OR today Patient had Bradycardia and hypotension for unknown reasons. Anaesthesia asked to cancel the OR for this patient today. [place]. OR ----- Signed on Monday, July 17, 2023 at 8:18:55 AM ----- ----- Provider: [id number] Jed Alicea DDS -- Clinic: [place] ----- Normal [facility] Financial Sales Manager Authentication Interface Message Text 0800: pt's HR in the 30s. Per caregiver his behavior is baseline. Spoke with nurse at pt's residence and she stated baseline HR is in the 70s. Dr Olmstead aware and at bedside. EKG performed. Pt transferred to ED for further evaluation. Normal [facility] Lithiumon 07-06-2023 [place] [Moles/Vol] 0.9 mmol/L Invalid Interpretation Code 0.5-1.2 [facility] Comment on above: Result Comment: A co ncentration of 0.5-0.8 mmol/L is advised for long-term use; concentrations of up to 1.2 mmol/L may be necessary during acute treatment. Detection Limit = 0.1 <0.1 indicates None Detected Performed at: [address] [id number] PhD Agata Narayan Performed By: #### 2 248961, 1223742, 8178783, 0924633, 612924398, 7340274, 8483759, 93450562, 7438220 ####[facility] [id number] [place] [address] CBC w/Indiceson 07-04-2023 Erythrocyte distribution width (RBC) [Ratio] 13.8 % Normal 10.9-14.2 [facility] Comment on above: Performed By: #### 2 124862, 8071526, 2852318, 7829865, 330882103, 2128664, 7430110, 76855034, 8391140 #### [facility] [address] [place] [address] Hematocrit (Bld) [Volume fraction] 38.1 % Normal 37.7-49.0 [facility] Comment on above: Performed By: #### 2 176663, 3866378, 8068319, 0528851, 000414122, 6322487, 3260029, 21585372, 7263523 #### [facility] [address] [place] [address] Hemoglobin (Bld) [Mass/Vol] 12.7 g/dL Low 13.5-17.5 [facility] Comment on above: Performed By: #### 2 682852, 5225473, 1940896, 6081460, 271551648, 0640714, 7689427, 69514421, 4783342 #### [facility] [address] [place] [address] MCH (RBC) [Entitic mass] 27.6 pg Normal 27.0-34.0 [facility] Comment on above: Performed By: #### 2 660201, 3258836, 1364156, 1145025, 264916322, 4359047, 2252520, 07052470, 7088685 #### [facility] [address] [place] [address] MCHC (RBC) [Mass/Vol] 33.3 g/dL Normal 31.4-36.[address] [facility] Comment on above: Performed By: #### 2 285154, 9225047, 7930083, 1321767, 923874736, 0417188, 5191015, 32004679, 5717842 #### [facility] [address] [place] [address] MCV (RBC) [Entitic vol] 83.0 fL Normal 80.0-100.0 [facility] Comment on above: Performed By: #### 2 984525, 6020288, 6827194, 3728664, 468382406, 2088304, 9259603, 90080179, 1638450 #### [facility] [address] [place] [address] Platelet mean volume (Bld) [Entitic vol] 8.5 fL Normal 6.4-10.8 [facility] Comment on above: Performed By: #### 2 193750, 8090812, 2085316, 9124687, 148166853, 5024504, 2219023, 38505212, 9556436 #### [facility] [address] [place] [address] Platelets (Bld) [#/Vol] 175.0 E9/L Normal 150.0-500.0 [facility] Comment on above: Performed By: #### 2 621328, 9924947, 7129986, 0759567, 582858670, 3972893, 5977795, 89990714, 4820416 #### [facility] [address] [place] [address] RBC (Bld) [#/Vol] 4.6 E12/L Normal 4.3-5.9 [facility] Comment on above: Performed By: #### 2 168409, 2610449, 0380326, 8367843, 458949436, 3589513, 5142492, 23686219, 0625742 #### [facility] [address] [place] [address] WBC corrected for nucl RBC Auto (Bld) [#/Vol] 5.9 E9/L Normal 4.0-11.0 [facility] Comment on above: Performed By: #### 2 538144, 2738535, 4183963, 6241920, 978239420, 9842540, 7521346, 97262869, 6015061 #### [facility] [address] [place] [address] CHEMISTRYOrdered By: SYSTEM SYSTEM on 07-04-2023 25-hydroxyvitamin D3 [Mass/Vol] 33.7 ng/mL Normal 30.0 - 100.0 ng/mL [facility] Comment on above: Interpretive Data: Vitamin D deficiency has been defined as a level of serum 25-OH vitamin D less than 20 ng/mL (1,2) by the [place] [employer] and an Endocrine Society practice guideline. The Endocrine Society further defined vitamin D insufficiency as a level between 21 and 29 ng/mL (2). 1. IOM ([place] of [employer]). 2010. Dietary reference intakes for [...] ng/dL Normal 0.58 - 1. 64 ng/dL [facility] GFR/1.73 sq M.predicted among non-blacks MDRD (S/P/Bld) [Vol rate/Area] 118 mL/min/1.73 m2 Normal >=59mL/min/1 .73 m2 [facility] Comment on above: Interpretive Data: [...] ratio] 22 mg/mg High 10 - 20 [facility] Valproate [Moles/Vol] 79 microgram/mL Normal 50 - 99 mcg/mL [facility]isol CMPon 07-04-2023 Albumin [Mass/Vol] 3.7 g/dL Normal 3.3-5.0 [facility] Comment on above: Performed By: #### 2 602245, 3472983, 0320487, 9032373, 725626687, 1002526, 9968184, 85257156, 7784026 #### [facility] [address] [place] [address] Albumin/Globulin (S) [Mass conc ratio] 1.0 Low 1.1-2.2 [facility] Comment on above: Performed By: #### 2 263441, 2249977, 4545247, 8258600, 272237262, 8147101, 5587296, 43329019, 5136175 #### [facility] [address] [place] [address] ALP [Catalytic activity/Vol] 37 Int._Unit/L Normal 21-98 [facility] Comment on above: Performed By: #### 2 510975, 4554742, 7857259, 0424852, 327283332, 1762533, 4377117, 66777280, 5144901 #### [facility] [address] [place] [address] ALT No additional P-5'-P [Catalytic activity/Vol] 15 Int._Unit/L Normal 6-46 [facility] Comment on above: Performed By: #### 2 335376, 5277748, 6511270, 0913817, 245155534, 9133025, 4882424, 19642239, 2728436 #### [facility] [address] [place] [address] Anion gap [Moles/Vol] 12 mmol/L Normal 6-[address] [facility] Comment on above: Performed By: #### 2 209640, 2566707, 4645707, 5133109, 703685741, 2264305, 0257805, 80309152, 8549676 #### [facility] [address] [place] [address] AST [Catalytic activity/Vol] 22 Int._Unit/L Normal 5-43 [facility] Comment on above: Performed By: #### 2 597868, 0839740, 0081593, 6054139, 689163252, 8033504, 2359875, 48277619, 8251159 #### [facility] [address] [place] [address] Bilirubin [Mass/Vol] 0.1 mg/dL Normal 0.0-1.1 [facility] Comment on above: Performed By: #### 2 243136, 8156813, 5671952, 8462989, 676935822, 8271166, 6859265, 18106155, 2207957 #### [facility] [address] [place] [address] Calcium [Mass/Vol] 9.7 mg/dL Normal 8.9-11.1 [facility] Comment on above: Performed By: #### 2 849702, 0810868, 7017073, 7116028, 321619834, 2151056, 3630903, 04571823, 1585634 #### [facility] [address] [place] [address] Chloride [Moles/Vol] 108 mmol/L Normal 101-111 [facility] Comment on above: Performed By: #### 2 665899, 9035951, 1155016, 1050931, 582143786, 2974293, 9415134, 06327700, 4321506 #### [facility] [address] [place] [address] CO2 [Moles/Vol] 23 mmol/L Normal 21-31 [facility] Comment on above: Performed By: #### 2 272795, 8043560, 4280125, 6994559, 471940105, 5696628, 3847454, 94479381, 8865895 #### [facility] [address] [place] [address] Creatinine [Mass/Vol] 0.9 mg/dL Normal 0.5-1.[address] [facility] Comment on above: Performed By: #### 2 430037, 8524334, 8086782, 7948295, 979566009, 9989666, 1684566, 20107579, 9406594 #### [facility] [address] [place] [address] Globulin (S) [Mass/Vol] 3.8 g/dL Normal 1.4-4.0 [facility] Comment on above: Performed By: #### 2 766409, 8861528, 2777307, 9022564, 531260971, 8678529, 6921366, 25783519, 5106668 #### [facility] [address] [place] [address] Glucose [Mass/Vol] 86 mg/dL Normal 55-199 [facility] Comment on above: Result Comment: If t his glucose result represents a fasting glucose, interpretation should refer to the following reference range: 55-99 mg/dL Performed By: #### 2 737281, 6128442, 5301740, 8251445, 246108553, 0972828, 5836963, 76263787, 8215164 #### [facility] [address] [place] [address] Potassium [Moles/Vol] 4.3 mmol/L Normal 3.5-5.[address] [facility] Comment on above: Performed By: #### 2 670811, 2956385, 9985174, 2831071, 750698166, 7716861, 2256338, 87244947, 3796120 #### [facility] [address] [place] [address] Protein [Mass/Vol] 7.5 g/dL Normal 6.0-7.8 [facility] Comment on above: Performed By: #### 2 607546, 0099742, 7096920, 9876074, 194594303, 9923400, 3118103, 64154785, 1679790 #### [facility] [address] [place] [address] Sodium [Moles/Vol] 139 mmol/L Normal 135-145 [facility] Comment on above: Performed By: #### 2 891788, 9017502, 2477276, 3559922, 827305579, 3728247, 8001752, 62786534, 4890833 #### [facility] [address] [place] [address] Urea nitrogen [Mass/Vol] 20 mg/dL Normal 5-21 [facility] Comment on above: Performed By: #### 2 400434, 4745160, 5871782, 0702389, 912205007, 3823838, 3394962, 59312478, 0476859 #### [facility] [address] [place] [address] Urea nitrogen/Creatinine [Mass ratio] 22 No Units High 10-20 [facility] Comment on above: Performed By: #### 2 692213, 2954812, 6872981, 3704513, 770223623, 0800619, 1546981, 80589111, 8140921 #### [facility] [address] [place] [address] Free T4on 07-04-2023 Free T4 [Mass/Vol] 0.70 ng/dL Normal 0.58-1.64 [facility] Comment on above: Performed By: #### 2 864049, 1249841, 1825811, 5680798, 288745111, 2891605, 2261345, 12307660, 2593927 #### [facility] [address] [place] [address] HEMATOLOGYOrdered By: Jersey Arnett on 07-04-2023 Erythrocyte distribution width (RBC) [Ratio] 13.8 % Normal 10.9 - 14.2 % [facility] Hematocrit (Bld) [Volume fraction] 38.1 % Normal 37.7 - 49.0 % [facility] Hemoglobin (Bld) [Mass/Vol] 12.7 g/dL Low 13.5 - 17.5 gm/dL [facility] MCH (RBC) [Entitic mass] 27.6 pg Normal 27.0 - 34.0 pg [facility] MCHC (RBC) [Mass/Vol] 33.3 g/dL Normal 31.4 - 36.0 gm/dL [facility] MCV (RBC) [Entitic vol] 83.0 fL Normal 80.0 - 100.0 fL [facility] Platelet mean volume (Bld) [Entitic vol] 8.5 fL Normal 6.4 - 10.8 fL [facility] Platelets (Bld) [#/Vol] 175.0 E9/L Normal 150.0 - 500.0 E9/L [facility] RBC (Bld) [#/Vol] 4.6 E12/L Normal 4.3 - 5.9 E12/L [facility] WBC corrected for nucl RBC Auto (Bld) [#/Vol] 5.9 E9/L Normal 4.0 - 11.0 E9/L [facility] Lipid Panelon 07-04-2023 Cholesterol [Mass/Vol] 145 mg/dL Normal 120-200 [facility] Comment on above: Performed By: #### 2 [id number], 1903223, 5722055, 0491044, [id number], 3154807, 7759592, 10222840, 2732280 #### [facility] [address] [place] [address] Cholesterol in HDL [Mass/Vol] 40 mg/dL Invalid Interpretation Code [facility] Comment on above: Result Comment: HDL > or equal to 60 mg/dL: Low cardiovascular risk HDL < 40 mg/dL : High cardiovascular risk Performed By: #### 2 188204, 1583198, 0064808, 9629131, [id number], 0081309, 7244589, 35207550, 1285847 #### [facility] [address] [place] [address] Cholesterol in LDL [Mass/Vol] 86 mg/dL Normal <=129 [facility] Comment on above: Performed By: #### 2 457337, 1794276, 5352692, 3889698, [id number], 9402231, 2042287, 75957841, 5796978 #### [facility] [address] [place] [address] Cholesterol in VLDL [Mass/Vol] 27 mg/dL Normal 7-40 [facility] Comment on above: Performed By: #### 2 494951, 5975504, 7624687, 9009789, [id number], 0299253, 2814873, 76490580, 6393494 #### [facility] [address] [place] [address] Triglyceride [Mass/Vol] 133 mg/dL Normal <=149 [facility] Comment on above: Performed By: #### 2 616825, 2810034, 1119438, 8790841, 102115192, 1237554, 3148044, 17231366, 7811485 #### [facility] [address] [place] [address] Physician Orderon 07-04-2023 Physician Order [id number]# 1.00TIFF Normal [facility] TSHon 07-04-2023 TSH Qn 2.75 m[IU]/L Normal 0.34-5.60 [facility] Comment on above: Performed By: #### 2 814885, 2328433, 2341105, 8871389, 839682309, 2073024, 7052330, 43458576, 5615629 #### [facility] [address] [place] [address] Valproic Acidon 07-04-2023 Valproate [Moles/Vol] 79 microgram/mL Normal 50-99 [facility] Comment on above: Performed By: #### 2 248258, 1151689, 2027404, 3340897, [id number], 1169010, 2792571, 22774957, 5126660 #### [facility] [address] [place] [address] Vitamin D 25 Hydroxyon 07-04 25-hydroxyvitamin D3 [Mass/Vol] 33.7 ng/mL Normal 30.0-100.0 [facility] Comment on above: Result Comment: Vit alfredo D deficiency has been defined as a level of serum 25-OH vitamin D less than 20 ng/mL (1,2) by the [place] of [employer] and an Endocrine Society practice guideline. The Endocrine Society further defined vitamin D insufficiency as a level between 21 and 29 ng/mL (2). 1. IOM ([place] of Medicine). 2010. Dietary reference intakes for calcium and D. [place]: The National Academies Press. 2. Denia MF, Marcelino [place], Ann GARVEY, et al. Evaluation, treatment, and prevention of vitamin D deficiency: an Endocrine Society clinical practice guideline. JCEM. 2010; 96 (7):1911-30. Performed By: #### 2 780857, 4310126, 2613352, 4587578, [id number], 8505653, 6360847, 14829595, 8929202 #### [facility] [address] [place] [address] eGFRon 07-04-2023 GFR/1.73 sq M.predicted among non-blacks MDRD (S/P/Bld) [Vol rate/Area] 118 mL/min/1.73 m2 Normal >=59 [facility] Comment on above: Order Comment: Order added by Discern Expert. Result Comment: Research/Program Director jenni kidney disease could be indicated at eGFR's of less than 60 mL/min/1.73m2. Kidney failure is indicated at less than 15 mL/min/1.73m2. Performed By: #### 2 376955, 8674716, 9424325, 4639072, [id number], 9649963, 1694965, 78623652, 5859192 #### [facility] [address] [place] [address] Telephone Encounteron 2022 Financial Sales Manager Authentication Interface Message Text Informed Consent for dental surgery AND Anesthesia consent obtained and scanned into [employer]. Scheduled for surgery 07/16/2023. Normal [facility] BASIC METABOLIC PANELon 11-0 Anion gap [Moles/Vol] 16 mmol/L Normal 10-20 [facility] Comment on above: Performed By: #### C H8 #### [facility] [address] [place] [address], Calcium [Mass/Vol] 9.8 mg/dL Normal 8.4-10.4 [facility] Comment on above: Performed By: #### C H8 #### [facility] [address] [place] [address], Chloride [Moles/Vol] 106 mmol/L Normal 97-111 [facility] Comment on above: Performed By: #### C H8 #### [facility] [address] [place] [address], CO2 [Moles/Vol] 23 mmol/L Normal 21-30 [facility] Comment on above: Performed By: #### C H8 #### [facility] [address] [place] [address], Creatinine [Mass/Vol] 1.01 mg/dL Normal 0.80-1.30 [facility] Comment on above: Performed By: #### C H8 #### [facility] [address] [place] [address], ESTIMATED GFR (CKD-EPI) 103 mL/min/1.73sqm Normal >=60 [facility] Comment on above: Result Comment: 2021 CKD EPI Equation using Creatinine without Race [...] Inclusion of Race in Diagnosing Kidney Disease. [place] Journal of Kidney Diseases 2021;79(2):268-88.e1. 2. N Engl J Med 1 Vol. 385 Issue 19 Pages 3899-2539 Performed By: #### C H8 #### [facility] [address] [place] [address], Glucose [Mass/Vol] 104 mg/dL Normal 68-110 [facility] Comment on above: Performed By: #### C H8 #### [facility] [address] [place] [address], Potassium [Moles/Vol] 4.7 mmol/L Normal 3.3-5.3 [facility] Comment on above: Performed By: #### C H8 #### [facility] [address] [place] [address], Sodium [Moles/Vol] 140 mmol/L Normal 135-148 [facility] Comment on above: Performed By: #### C H8 #### [facility] [address] [place] [address], Urea nitrogen [Mass/Vol] 22 mg/dL Normal 8-22 [facility] Comment on above: Performed By: #### C H8 #### [facility] [address] [place] [address], PSE Chartingon 06-22-2023 Financial Sales Manager Authentication Interface Message Text Dental Consult The [...] Treatment Dental treatment in the OR Follow-up [facility] Family Dentistry if needed NOTE: Legal Guardian: Delbert Devine (BROTHER) [phone]. Consent taken by phone. Hiram Rodriguez DDS Normal [facility] Patient Instructionson 06-22 Financial Sales Manager Authentication Interface Message Text RECOMMENDATIONS: Patient was instructed on the following: Nothing by mouth after midnight before surgery except following meds with sip of water on AM of surgery: as per anesthesia Stop aspirin 7 days before surgery Stop NSAID 5 days before surgery Stop Vitamin E 10 days prior to surgery Stop alternative/herbal medication 10 days before surgery Franc Beyer MD [phone] Normal [facility] Progress Noteson 06-22-2023 Financial Sales Manager Authentication Interface Message Text Identification was verified by patient verbalizing his name and date of . 23 gauge used for venipuncture to the R hand. Tolerated with assistance x2. Sent blood to lab. Normal [facility] Financial Sales Manager Authentication Interface Message Text Blood pressure 108/68, pulse 69, temperature 97 ???F (36.1 ???C), temperature source Temporal, resp. rate 40, height 5' 4.17 (1.63 m), weight 199 lb 3.2 oz (90.4 kg). Medications/Allergies Reviewed CURRENT MEDICATIONS Current Outpatient Medications Medication [...] No current facility-administered medications for this visit. ALLERGIES Allergies Allergen [...] RESTORATIONS Bilateral 02/03/2021 Procedure: DENTAL RESTORATIONS; Surgeon: Harpreet Mccurdy DDS; Location: [facility]; Service: Dental Pertinent Social History [...] fever, chills, night sweats, and weight loss BINDERY MANAGER: No h/o CVA/TIA/Seizures Respiratory: No h/o COPD, asthma dyspnea or recent URI Cardiovascular: No h/o chest pain/MT/CHF/valvular disease/HTN GI: Dyspepsia Chronic Constipation : No [...] lymphadenopathy or goiter CV: Normal S1/S2, no murmurs/gallops/rubs Lungs: Lungs clear to auscultation. Good air [...] PLAN (more content not included)... Normal [facility] Financial Sales Manager Authentication Interface Message Text Patient was identified by name and date of . Alicia Hnut Normal [facility] XR CHEST PA+LAT 2 VIEWSon XR CHEST PA+LAT 2 VIEWS EXAMINATION: XR CHEST PA+LAT 2 VIEWS 06/22/2023 05:00 PM CLINICAL HISTORY: pre op exam ASSOCIATED DIAGNOSIS: Pre-op exam ORDERING PROVIDER: FRANC BEYER TECHNOLOGISTS NOTE: -best images possible -cm [...] dedicated abdominal radiograph/CT. MACRO: None Normal [facility] XR Chest PA and Lateralon EXAMINATION: XR CHES T PA+LAT 2 VIEWS 06/22/2023 05:00 PM CLINICAL HISTORY: pre op exam ASSOCIATED DIAGNOSIS: Pre-op exam ORDERING PROVIDER: FRANC BERRY NOTE: -best images possible -cm COMPARISON: None [...] exam ASSOCIATED DIAGNOSIS: Pre-op exam ORDERING PROVIDER: FRANC BEYER TECHNMARK NOTE: -best images possible -cm COMPARISON: None [...] indicated with dedicated abdominal radiograph/CT. MACRO: None [facility] Study observation (narrative) [facility] XR Chest PA and LateralOrder ed By: Krystal Epstein on 06-22-2023 [facility] Work Phone: Progress Noteson 06-13-2023 Financial Sales Manager Authentication Interface Message Text Parent/guardian(Wendy peres @ [employer]) was contacted for PSE AND OR scheduled -- confirmed information with mom, also informed mom importance of receiving PSE call -- if not received surgery will be canceled ----- Sunday, June 13, 2023 at 11:28:09 AM ----- ----- Provider: Orville Amaya Specialist -- Clinic: [place] ----- Normal [facility] DEPAKENE/ VALPROIC ACIDon DEPAKENE 59.3 ug/ml Normal 50.0-100.0 [facility] Comment on above: Performed By: #### V ALP #### [facility] [address] [place] [address] Dr. Nikky King DEPAKENE/ VALPROIC ACIDon DEPAKENE 43.6 ug/ml Critically low 50.0-100.0 [facility] Comment on above: Performed By: #### V ALP #### [facility] [address] [place] [address] Dr. Nikky King LITHIUMon 12-06-2022 [place] (Eskalith(R)), Serum 0.8 mmol/L Normal 0.5-1.2 [facility] Comment on above: Result Comment: A co ncentration of 0.5-0.8 mmol/L is advised for long-term use; concentrations of up to 1.2 mmol/L may be necessary during acute treatment. Detection Limit = 0.1 <0.1 indicates None Detected Performed By: #### L ITHIUM #### [facility] [address] [place] [address] Dr. Nikky King DEPAKENE/ VALPROIC ACIDon DEPAKENE 61.7 ug/ml Normal 50.0-100.0 [facility] Comment on above: Performed By: #### V ALP #### [facility] [address] [place] [address] Dr. Nikky King LITHIUMon 11-23-2022 [place] (Eskalith(R)), Serum 0.9 mmol/L Normal 0.5-1.2 [facility] Comment on above: Result Comment: A co ncentration of 0.5-0.8 mmol/L is advised for long-term use; concentrations of up to 1.2 mmol/L may be necessary during acute treatment. Detection Limit = 0.1 <0.1 indicates None Detected Performed By: #### L ITHIUM #### [facility] [address] [place] [address] Dr. Nikky King CALCIUMon 08-22-2022 Calcium [Mass/Vol] 9.6 mg/dL Normal 8.5-10.1 [facility] Comment on above: Performed By: #### C A CREA #### [facility] [address] [place] [address] Dr. Nikky King CREATININEon 08-22-2022 Creatinine [Mass/Vol] 0.84 mg/dL Normal 0.70-1.30 [facility] Comment on above: Performed By: #### C A CREA #### [facility] [address] [place] [address] Dr. Nikky King EGFR-AF [place] >60 Normal >=60 [facility] Comment on above: Performed By: #### C A CREA #### [facility] [address] [place] [address] Dr. Nikky King EGFR-NON AF [place] >60 Normal >=60 [facility] Comment on above: Performed By: #### C A, CREA #### [facility] [address] [place] [address] Dr. Nikky King LITHIUMon 07-05-2022 [place] (Eskalith(R)), Serum 0.9 mmol/L Normal 0.5-1.2 [facility] Comment on above: Result Comment: A co ncentration of 0.5-0.8 mmol/L is advised for long-term use; concentrations of up to 1.2 mmol/L may be necessary during acute treatment. Detection Limit = 0.1 <0.1 indicates None Detected Performed By: #### L ITHIUM #### [facility] [address] [place] [address] Dr. Nikky King Vital Signs Date Time Vital Sign Value Performing Clinician Faci lity 12-28-2023 14:30-0400 Diastolic blood pressure 89 mm[Hg] [facility] Harimata [facility] 12-28-2023 14:30-0400 Heart rate 69 /min Mari Yi DMD Work Phone: [facility] 12-28-2023 14:30-0400 Respiratory rate 10 /min Mari Yi DMD [facility] 12-28-2023 14:30-0400 SaO2% (BldA) [Mass fraction] 100 % Mari Yi DMD [facility] 12-28-2023 14:30-0400 Systolic blood pressure 135 mm[Hg] Mari Yi DMD [facility] 12-28-2023 13:52-0400 Body temperature 97.3 [degF] Mari Yi DMD Work Phone: [facility] 12-28-2023 09:15-0400 Body height 167.6 cm Mari Yi DMD Work Phone: [facility] 12-28-2023 09:15-0400 Body mass index (BMI) [Ratio] 31.8 kg/m2 Mari Yi DMD Work Phone: [facility] 12-28-2023 09:15-0400 Body weight 89.36 kg Mari [facility] DMD [facility] 12-19-2023 11:23-0400 Diastolic blood pressure 90 mm[Hg] Ling Coffman REBAR FABRICATOR-MOLD BURNER Work Phone[facility] 12-19-2023 11:23-0400 Systolic blood pressure 132 mm[Hg] Ling Ridleyiv REBAR FABRICATOR-MOLD BURNER [facility] 12-19-2023 11:03-0400 Body height 167.6 cm Ling Ridleyiv REBAR FABRICATOR-MOLD BURNER Work [facility] 12-19-2023 11:03-0400 Body mass index (BMI) [Ratio] 31.8 kg/m2 Ling Ridleyiv REBAR FABRICATOR-MOLD BURNER [facility] 12-19-2023 11:03-0400 Body temperature 97.81 [degF] Ling Ridleyiv REBAR FABRICATOR-MOLD BURNER [facility] 12-19-2023 11:03-0400 Body weight 89.36 kg Ling Ridleyiv REBAR FABRICATOR-MOLD BURNER Work [facility] 12-19-2023 11:03-0400 Heart rate 59 /min Ling Coffman REBAR FABRICATOR-MOLD BURNER Work [facility] 12-19-2023 11:03-0400 Respiratory rate 18 /min Ling Ridleyiv REBAR FABRICATOR-MOLD BURNER [facility] 12-19-2023 11:03-0400 SaO2% (BldA) [Mass fraction] 97 % Ling Ridleyiv REBAR FABRICATOR-MOLD BURNER Work Phone: [facility] 12-03-2023 13:07-0400 Body height 167.6 cm Oscar Ruiz MD Work Phone: [facility] 12-03-2023 13:07-0400 Body weight 92.53 kg Oscar Ruiz MD Work Phone: [facility] 12-03-2023 13:07-0400 Diastolic blood pressure 76 mm[Hg] Oscar Ruiz MD Work Phone: [facility] 12-03-2023 13:07-0400 Heart rate 71 /min Oscar Ruiz MD Work Phone: [facility] 12-03-2023 13:07-0400 Systolic blood pressure 111 mm[Hg] Oscar Ruiz MD Work Phone: [facility] 11-28-2023 09:48-0400 Body height 167.6 cm Victoria Daniel REBAR FABRICATOR.MOLD BURNER Work Phone: [facility] 11-28-2023 09:48-0400 Body temperature 97.5 [degF] Victoria Daniel REBAR FABRICATOR.MOLD BURNER Work Phone: [facility] 11-28-2023 09:48-0400 Body weight 87.54 kg Victoria Daniel REBAR FABRICATOR.MOLD BURNER Work Phone: [facility] 11-28-2023 09:48-0400 Diastolic blood pressure 66 mm[Hg] Victoria Daniel REBAR FABRICATOR.MOLD BURNER Work Phone: [facility] 11-28-2023 09:48-0400 Heart rate 83 /min Victoria Daniel REBAR FABRICATOR.MOLD BURNER Work Phone: [facility] 11-28-2023 09:48-0400 Systolic blood pressure 134 mm[Hg] Victoria Daniel REBAR FABRICATOR.MOLD BURNER Work Phone: [facility] 07-16-2023 08:06-0500 Body mass index (BMI) [Ratio] 33.97 kg/m2 Kim Horton MD Work Phone: [facility] 07-16-2023 08:06-0500 Body temperature 97.5 [degF] Kim Horton MD Work Phone: [facility] 07-16-2023 08:06-0500 Body weight 90.27 kg Kim Horton MD Work Phone: [facility] 07-16-2023 08:06-0500 Diastolic blood pressure 80 mm[Hg] Kim Horton MD Work Phone: [facility] 07-16-2023 08:06-0500 Heart rate 37 /min Kim Horton MD Work Phone: [facility] 07-16-2023 08:06-0500 Respiratory rate 15 /min Kim Horton MD Work Phone: [facility] 07-16-2023 08:06-0500 SaO2% (BldA) [Mass fraction] 100 % Kim Horton MD Work Phone: [facility] 07-16-2023 08:06-0500 Systolic blood pressure 110 mm[Hg] Kim Horton MD Work Phone: [facility] Encounters Encounter Date Encounter Type Care Provider Facility Start: 05-18-2024 End: 05-18-2024 Letter encounter Gallagher Jewell DDS Work Phone: [facility] Start: 02-13-2024 End: 02-13-2024 Lab Drop off HERMAN CRANE [facility] Start: 02-13-2024 End: 02-13-2024 ambulatory HERMAN CRANE [place] Start: 01-29-2024 End: 01-29-2024 ambulatory CRIS ARREOLA Not Available Start: 01-11-2024 Telephone encounter Cris Dinh RN Colorectal Surgery Comment on above: Sweatband Perforator - O ther Start: 12-28-2023 End: 12-31-2023 ambulatory MARI YI Facility:[facility] Start: 12-28-2023 End: 12-31-2023 Patient encounter procedure Mari Yi DMD Work Phone: [facility] Start: 12-28-2023 End: 12-28-2023 Subsequent hospital visit by physician Mari Yi DMD Work Phone: [facility] [place] [facility] Start: 12-25-2023 Telephone encounter Shayy Chandler RN [facility] Pre-Admission Testing Comment on above: Pre-surgical Evaluat ion (DD adult dental restorations 12/27 under [place] at [place]. PAT completed - consent request sent to main - see future encounter for results. CHRISTINA RN spoke to Melaniepatrick DEEO, [place] address, and 0900 arrival time/) Pre-surgical Evaluat ion (Anesthesia Attestaion for dental surgery scanned in online media buyer) Start: 12-20-2023 End: 12-20-2023 Orders Only Victoria Daniel REBAR FABRICATOR.MOLD BURNER Work Phone: General Surgery Comment on above: Sigmoid volvulus (HC C) (Primary Dx) Start: 12-19-2023 ambulatory UNKNOWN PROVIDER Facili ty:[facility] Start: 12-19-2023 End: 12-19-2023 Patient encounter procedure Ling Coffman REBAR FABRICATOR-MOLD BURNER Work Phone: [facility] Pre-Admission Testing Comment on above: Pre-op testing (Prim marylin Dx); Body mass index (BMI) 31.0-31.9, adult Start: 12-19-2023 End: 12-19-2023 Patient encounter status Ling Coffman REBAR FABRICATOR-MOLD BURNER [facility] Work Phone: Start: 12-11-2023 End: 12-11-2023 ambulatory EPIFANIO HUNTLEY Not Available Start: 12-03-2023 End: 12-04-2023 ambulatory Rafael Giraldo MD Work Phone: Urology Start: 12-03-2023 End: 12-03-2023 Office outpatient visit 5 minutes Oscar Ruiz MD Work Phone: Urology Comment on above: Phimosis (Primary Dx ) Start: 11-28-2023 End: 11-29-2023 ambulatory VICTORIA DANIEL Facility:[facility] Start: 11-28-2023 End: 11-28-2023 Patient encounter procedure Victoria Daniel REBAR FABRICATOR.MOLD BURNER Work Phone: General Surgery Comment on above: Postoperative visit (Primary Dx) Start: 11-12-2023 Telephone encounter Cris Dinh RN Colorectal Surgery Comment on above: Sweatband Perforator - O ther Start: 11-07-2023 End: 11-07-2023 ambulatory PHOENIX CARDENAS Facility:[facility] Start: 10-28-2023 Evaluation and management of inpatient PHOENIX CARDENAS Facility:[facility] Start: 07-16-2023 End: 07-16-2023 Emergency department patient visit UNKNOWN PROVIDER Facility:[facility] Start: 07-16-2023 End: 07-16-2023 ambulatory UNKNOWN PROVIDER Facility:[facility] Start: 07-16-2023 End: 07-16-2023 Emergency department patient visit Kim Horton MD Work Phone: [facility] Comment on above: bradycardia (Low HR (33)) Start: 07-16-2023 End: 07-16-2023 Subsequent hospital visit by physician Harpreet Mccurdy DDS Work Phone: [facility] Rad[facility] CT Scan Comment on above: Arrived Start: 07-16-2023 End: 07-19-2023 ambulatory UNKNOWN PROVIDER Facility:[facility] Start: 07-04-2023 End: 07-04-2023 ambulatory HERMAN CRANE [place] Start: 07-04-2023 End: 07-04-2023 Lab Drop off [facility] CRANE [facility] Start: 06-26-2023 Telephone encounter Shanna marquez RN [facility] Pre Surgical Evaluation Comment on above: Pre-surgical Evaluat ion (Informed Consent for dental surgery & Anesthesia consent obtained) Start: 06-22-2023 End: 06-23-2023 ambulatory UNKNOWN PROVIDER Facility:[facility] Start: 06-22-2023 Encounter for other preprocedural examination UNKNOWN PROVIDER [facility] Start: 06-22-2023 End: 06-22-2023 ambulatory UNKNOWN PROVIDER Facility:[facility] Start: 06-22-2023 End: 06-22-2023 Subsequent hospital visit by physician Alin Op Xray 2 [facility] Comment on above: Pre-op exam Start: 06-22-2023 End: 06-22-2023 Patient encounter procedure Pse Anesthesia [facility] Pre Surgical Evaluation Comment on above: Pre-op evaluation (P rimary Dx) Start: 06-22-2023 End: 06-22-2023 Preprocedural examination done Pse Anesthesia [facility] Work Phone: Start: 05-25-2023 Admission to [facility] Hiram Rodriguez DDS Work Phone: [facility] Start: 01-17-[address] HERMAN CRANE Fac ility:[facility] Start: 12-07-2022 End: 12-08-[address] HERMAN CRANE Facility:[facility] Start: 12-05-2022 End: 12-06-[address] HERMAN CRANE Facility:[facility] Start: 11-27-2022 End: 11-28-[address] HERMAN CRANE Facility:[facility] Start: 11-22-2022 End: 11-23-[address] HERMAN CRANE Facility:[facility] Start: 08-30-2022 End: 08-30-[address] HERMAN CRANE Facility:[facility] Start: 08-25-2022 Encounter for other specified special examinations DR HERMAN CRANE [facility] Start: 08-22-2022 End: 08-23-[address] HERMAN CRANE Facility:[facility] Start: 08-22-2022 End: 08-23-2022 Encounter for other specified special examinations DR HERMAN CRANE Facility:[facility] Start: 07-04-2022 End: 07-05-[address] HERMAN CRANE Facility:[facility] Start: 05-17-2022 Telephone encounter Grupo Morales MD Work Phone: Ophthalmology Comment on above: REturned call Start: 05-08-2022 Telephone encounter Angel Sexton MD Work Phone: Ophthalmology Comment on above: Question Start: 05-05-2022 Telephone encounter Grupo Morales MD Work Phone: Ophthalmology Comment on above: Cataract Start: 05-04-2022 End: 05-04-2022 Patient encounter procedure Angel Sexton MD Work Phone: Ophthalmology Comment on above: 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) Start: 03-29-2022 [facility]phone [facility] Comment on above: Medical Record Revie w Procedures Date Procedure Procedure Detail Performing Clinician Start: 12-19-2023 Basic metabolic pane l calcium total Ling Coffman REBAR FABRICATOR-MOLD BURNER Work Phone: Start: 10-28-2023 Antibody screen PHOENIX CARDENAS Comment on above: Order Comment: Speci men Type: BLOOD SPECIMEN Ordering Facility: [facility] Address: [address] [place] [address] Performed By: #### 2 4321-2, 56549-5, 2777-1 #### [facility] CLIA [id number] [address] [place] [address] [place] Start: 07-16-2023 End: 07-16-2023 Assay of magnesium Yobany Smith PA-C Work Phone: Start: 07-16-2023 Ct head/brain w/o contrast material Yobany Smith PA-C Work Phone: Start: 06-22-2023 Radiologic exam ches t 2 views Franc Beyer MD Work Phone: Plan of Treatment Date Care Activity Detail Author Start: 2042 Shingles (RZV) Vacci ne (1 of 2) Shingles (RZV) Vaccine (1 of 2) [facility] Start: 07-10-2029 Tetanus vaccination Tetanus (T d or Tdap) [facility] Start: 07-10-2029 Urine microalbumin profile DTaP,Tdap,Td Vaccine (2 - Td or Tdap) [facility] Start: 04-20-2024 COVID-19 Vaccine ( season) COVID-19 Vaccine ( season) [facility] Start: 04-20-2024 Influenza vaccination Influenza Vacc ine (#1) [facility] Start: 03-11-2024 End: 03-11-2024 Patient encounter procedure 03/11/2024 9:00 AM EDT Office Visit [facility] [address] [place] [address] [place] [address] Iain Lazcano MD [address] [place] [address] Cataracts Ophthalmology Comment on above: Cataracts Start: 12-28-2023 End: 12-28-2023 Admission to same day surgery center 12/28/2023 10:01 AM EDT - 12/28/2023 12:21 PM EDT Surgery [facility] [address] [place] [id number] Mari Yi, DMD [address] [place] [address] DENTAL RESTORATIONS [facility] Comment on above: DENTAL RESTORATIONS Start: 12-28-2023 End: 12-28-2023 DENTAL RESTORATIONS [facility] Start: 12-28-2023 Subsequent hospital visit by physician 12/28/2023 10:01 AM EDT Hospital Encounter [facility] [address] [place] [id number] Mari Yi, DMD [address] [place] [address] [facility] Start: 12-28-2023 End: 12-28-2023 Patient encounter procedure 12/28/2023 9:00 AM EDT Procedure Visit [facility] [address] [place] [id number] Mari Yi, DMD [address] [place] [address] [facility] Start: 08-20-2023 Behavioral Health Screening Behavioral Health Screening [facility] Start: 08-20-2023 Depression Assessment Depression Ass essment [facility] Start: 07-16-2023 End: 07-16-2023 DENTAL RESTORATIONS DENTAL RESTORATIONS Routine scheduled Caries 07/16/2023 1:45 PM EST [facility] Start: 07-16-2023 End: 11-27-2023 Admission to same day surgery center 07/16/2023 9:27 AM EST - 07/16/2023 11:24 AM EST Surgery [facility] [address] [place] [address] Harpreet Mccurdy, DDS [address] [place] [address] DENTAL RESTORATIONS [facility] Comment on above: DENTAL RESTORATIONS Start: 07-16-2023 End: 07-16-2023 DENTAL RESTORATIONS DENTAL RESTORATIONS Routine scheduled Caries 07/16/2023 9:27 AM EST [facility] Start: 07-16-2023 Subsequent hospital visit by physician [facility] Start: 06-22-2023 End: 06-22-2023 Patient encounter procedure 06/22/2023 2:30 PM EDT Office Visit [facility] [address] [place] [address] Franc Beyer MD [address] [place] [address] [facility] Start: 04-20-2023 COVID-19 Vaccine ( season) COVID-19 Vaccine ( season) [facility] Start: 04-20-2023 Influenza vaccination Influenza Vacc ine (#1) [facility] Start: 05-20-2022 Influenza vaccination Influenza Vacc ine (#1) [facility] Start: 04-20-2022 Influenza vaccination INFLUENZA (#1) [facility] Start: 08-20-2021 DEPRESSION ASSESSMENT DEPRESSION ASS ESSMENT [facility] Start: 08-10-2021 COVID-19 VACCINE (4 - Booster for Pfizer series) COVID-19 VACCINE (4 - Booster for Pfizer series) [facility] Start: 2019 HPV Vaccine (optiona l start 27-45 years) HPV Vaccine (optional start 27-45 years) [facility] Start: 02-17-2014 Annual wellness visit Annual W ellness Visit ([id number]) [facility] Start: 2011 Hepatitis A (HAV) Vaccine (optional start 19+ years) Hepatitis A (HAV) Vaccine (optional start 19+ years) [facility] Start: 2011 Hepatitis B vaccination Hepatitis B (HBV) Vaccine (1 of 3 - 19+ 3-dose series) [facility] Start: 2011 Hepatitis B Vaccine (1 of 3 - 19+ 3-dose series) Hepatitis B Vaccine (1 of 3 - 19+ 3-dose series) [facility] Start: 2011 Urine microalbumin profile DTAP,TDAP,TD (1 - Tdap) [facility] Start: 2010 Annual PCP Team Chronic Disease Visit Annual PCP Team Chronic Disease Visit [facility] Start: 2010 Hepatitis C screening M [facility] Start: 2010 HEPATITIS C SCREENING HEPATITIS C SC REENING [facility] Start: 2010 HIV SCREENING HIV SCREENING [facility] Start: 2010 HIV screening HIV Screening [facility] Start: 2007 HIV screening HIV Test [facility] Start: 2004 Adult depression screening assessment DEPRESSION SCREENING [facility] Start: 1992 HEPATITIS B (1 of 3 - 3-dose series) HEPATITIS B (1 of 3 - 3-dose series) [facility] Start: 1992 Hepatitis B vaccination Hepatitis B (HBV) Vaccine (1 of 3 - 3-dose series) [facility] Start: 1992 Thyroid stimulating hormone measurement TSH [facility] DENTAL RESTORATIONS DENTAL OMAR RATIONS Routine scheduled Caries [facility] URINALYSIS, REFLEX MICROSCOPIC URINALYSIS, REFLEX MICROSCOPIC Lab Routine Screening for genitourinary condition Ordered: 12/03/2023 [facility] Work Phone: Comment on above: Ordered: 12/03/2023 [place] [facility] Immunizations Immunization Date Immunization Notes Care Provider Fa cility 06-15-2021 influenza, injectabl e, quadrivalent, preservative free To Assigned [facility] 06-15-2021 influenza virus vacc ine, unspecified formulation To Assigned [facility] 05-26-2020 influenza, injectabl e, quadrivalent, preservative free To Assigned [facility] 07-10-2019 tetanus toxoid, redu alex diphtheria toxoid, and acellular pertussis vaccine, adsorbed To Assigned [facility] 06-13-2019 influenza, injectabl e, quadrivalent, preservative free To Assigned [facility] 05-29-2018 influenza, injectabl e, quadrivalent, preservative free To Assigned [facility] 06-13-2017 influenza, injectabl e, quadrivalent, contains preservative To Assigned [facility] 06-10-2015 influenza, injectabl e, quadrivalent, preservative free To Assigned [facility] 06-12-2012 influenza, seasonal, injectable To A ssigned [facility] 05-03-2011 influenza, seasonal, injectable, preservative free To Assigned [facility] 06-15-2010 influenza, seasonal, injectable To A ssied [facility] 07-07-2009 novel influenza-H1N1 -09, preservative-free, injectable To Assigned [facility] 05-11-2009 influenza, seasonal, injectable To A ssigned [facility] 06-15-2008 influenza, seasonal, injectable To A ssigned [facility] 06-11-2008 influenza virus vacc ine, whole virus To Assigned [facility] Payers Date Payer Category Payer Unknown [id number] 2017 Medicaid [id number] 2013 Medicare [id number] 1992 Unknown [id number] 2.16 840.1.558397.3.579.2.732 1992 Unknown [id number] 2.16 840.1.617220.3.579.2.732 1992 Unknown [id number] 2.16. 840.1.808182.3.579.2.732 1992 Unknown [id number] 2.16. 840.1.220296.3.579.2.732 1992 Unknown [id number] 2.16 840.1.304044.3.579.2.732 1992 Unknown [id number] 2.16. 840.1.281753.3.579.2.732 1992 Unknown [id number] 2.16. 840.1.846003.3.579.2.732 1992 Unknown [id number] 2.16. 840.1.480392.3.579.2.732 1992 Unknown [id number] 2.16. 840.1.761365.3.579.2.732 1992 Unknown [id number] 2.16. 840.1.111068.3.579.2.732 1992 Unknown [id number] 2.16. 840.1.709783.3.579.2.732 1992 Unknown [id number] 2.16.84 0.1.405019.3.579.2.1259 1992 Unknown [id number] 2.16.84 0.1.423297.3.579.2.1259 1992 Unknown [id number] 2.16.84 0.1.790755.3.579.2.1259 1992 Unknown [id number] 2.16.8 40.1.578330.3.579.2.727 1992 Unknown [id number] 2.16.8 40.1.031937.3.579.2.727 1959 Medicaid [id number] 1959 Medicare [id number] Unknown [id number] 2.16.84 0.1.737720.3.579.2.593 Unknown [id number] 2.16.84 0.1.403229.3.579.2.593 Unknown [id number] 2.16.84 0.1.931942.3.579.2.593 Unknown [id number] 2.16.84 0.1.739833.3.579.2.593 Unknown [id number] 2.16.84 0.1.749791.3.579.2.593 Unknown [id number] 2.16.84 0.1.783999.3.579.2.593 Unknown [id number] 2.16.84 0.1.638638.3.579.2.593 Unknown [id number] 2.16.84 0.1.951693.3.579.2.593 Social History Date Type Detail Facility Start: 07-08-2019 End: 06-22-2023 Tobacco smoking status TXIS Never smoked tobacco [facility] Start: 07-08-2019 End: 06-22-2023 Tobacco use and exposure Smokeless tobacco non-user [facility] Start: 02-04-2021 End: 12-31-2023 Alcohol intake Lifetime non-drinker (finding) [facility] Start: 07-13-2020 History SDOH Alcohol Frequency 1 [facility] Start: 1992 Sex Assigned At Not on file [facility] Start: 05-04-2022 End: 12-19-2023 Tobacco smoking status TXIS Tobacco smoking consumption unknown [facility] Start: 04-24-2022 End: 05-04-2022 Exposure to SARS-CoV-2 (event) Not sure [facility] Start: 06-22-2023 End: 10-29-2023 Gender identity Not on file [facility] Tobacco smoking status No Smokin g Status Entered [facility] Start: 06-22-2023 End: 10-29-2023 History of Social function [facility] Work Phone: Has the [employer] or [employer] threatened to shut off services in your home in past 12Mo Patient unable to answer [facility] Work Phone: How often to you hav e a drink containing alcohol? Never [facility] Work Phone: Clinical Notes 03-29-2022 to 02-13-2024 Telephone Encounter - Cris Dinh RN - 01/11/2024 1:27 PM EDTTelephone Encounter - Cris Dinh RN - 01/11/2024 1:27 PM EDTDischarge InstructionsAttachmentsPatient Instructions Note Date & Type Note Facility 02-13-2024 Evaluation + Plan note Diagnostic Tests PendingKeppra Lvl 02/13/24Lamotrigine Level 02/13/24 [facility] 01-11-2024 Telephone encounter Note Jessica from [facility] [phone] is caller. She states was originally told Dr. Fairbanks would see patient if he wished, but he should follow up with Dr. Robin as he was the surgeon of record. They state Dr. Robin's office is telling them he needs to follow with Dr Fairbanks. In speaking with Dr. Fairbanks again; since patient is doing well and no symptoms-- there is no monitoring/testing that routinely must take place. Should there be concerns in the future that relate to CORS; he is happy to see patient. Jessica verbalizes understanding and no further needs at present time. Cris Dinh, MIRIAM [facility] 01-11-2024 Miscellaneous Notes Jessica from [facility] [phone] is caller. She states was originally told Dr. Fairbanks would see patient if he wished, but he should follow up with Dr. Robin as he was the surgeon of record. They state Dr. Robin's office is telling them he needs to follow with Dr Fairbanks. In speaking with Dr. Fairbanks again; since patient is doing well and no symptoms-- there is no monitoring/testing that routinely must take place. Should there be concerns in the future that relate to CORS; he is happy to see patient. Jessica verbalizes understanding and no further needs at present time. Cris Dinh, RN documented in this encounter [facility] 12-28-2023 Hospital Discharge instructions Benjamín Guo - 12/28/2023 2:17 PM EDT PERIOPERATIVE DISCHARGE/HOME-GOING INSTRUCTIONS ANESTHESIA - GENERAL (ADULT) If a problem arises, you may contact your physician by calling [phone] and asking for the resident space systems operations craftsman for Dental service. Special Care Needs: Activity: Rest at home today and tomorrow, then progress to your regular activities as tolerated. Diet: Clear liquids are best tolerated at first. If you are not nauseated, you can progress your diet to solid foods as tolerated. Possible post-operative precautions: Call you doctor or clinic for: 1. Signs of infection such as fever or chills. 2. Severe pain that in not relieved by Tylenol or your pain medicine prescription. 3. You may have a sore throat - it is usually gone in 1 to 2 days. Post-anesthesia safety: Possible side effects include drowsiness, dizziness, or inability to think clearly. For your safety, do not drive, drink alcoholic beverages, take any unprescribed medication or make any important decisions for 24 hours. A responsible adult should be with you for 24 hours. The day after surgery, a nurse will call to check on you. However, if there are any questions or concerns, please call us at the number listed in the home going instructions. The following attachments cannot be sent through Care Everywhere.Tooth Extraction Discharge Instructions (Ecuadorean)documented in this encounter [facility] 12-28-2023 Note Surgical Attestation : I have reviewed the patient's History and Physical Examination. I have personally seen and evaluated the patient, repeating knox portions. There is no significant interval change. Surgery is still indicated. Yes Consent reviewed and signed by patient/family: Yes Operative site verified and marked: site verified but not marked as not anatomically possible Mari Yi DMD 12/28/2023 10:09 AM [facility] 12-28-2023 History and physical note Surgical Attestation: I have reviewed the patient's History and Physical Examination. I have personally seen and evaluated the patient, repeating knox portions. There is no significant interval change. Surgery is still indicated. Yes Consent reviewed and signed by patient/family: Yes Operative site verified and marked: site verified but not marked as not anatomically possible Mari Yi DMD 12/28/2023 10:09 AM [facility] Work Phone: 12-28-2023 History and physical note Surgical Attestation: I have reviewed the patient's History and Physical Examination. I have personally seen and evaluated the patient, repeating knox portions. There is no significant interval change. Surgery is still indicated. Yes Consent reviewed and signed by patient/family: Yes Operative site verified and marked: site verified but not marked as not anatomically possible Mari Yi DMD 12/28/2023 10:09 AM documented in this encounter [facility] 12-28-2023 Miscellaneous Notes Brief Operative Note [facility] OR 3 Johnny Devine 33 year old male Surgical Contact Serial Number: [id number] Preoperative Diagnosis: Pre-op Diagnosis * Caries [K02.9] Moderate intellectual disability [F79] Postoperative Diagnosis: Moderate intellectual disability [F79] Procedures: Comprehensive exam [14731] Full mouth X-ray [ 16936] Extractions [70608] Restorations [31135] Prophy 16805] Fluoride treatment [79502] Surgeon(s): Surgeon(s): Mari Yi DMD Staff: Lead Manufacturing Engineering Tech Nurse: Henrietta Johnson Anesthesia: General Anesthesia Staff: Selena Camacho APRN-CRNA Specimen(s): * No specimens in log * Estimated Blood Loss: 5-10 cc Lines/Drains: Peripheral IV Access: 12/28/23934 20 gauge Right Antecubital (Active) Site Assessment WNL;Dressing intact 12/28/23934 Infusion Status Port #1 Infusing;Patent 12/28/23934 Temporarily Retained Foreign Object: Yes Location: Oropharynx Object: Throat pack Anticipated removal date: End of the surgery Findings: Normal Complications: None Status at end of surgery: Stable Activity: weight bearing as tolerated and Surgical wound class: Yes, wound was clean contaminated. Patient Class: Outpatient Surgery. Is this a patient scheduled as an outpatient that needs to be admitted as an inpatient? No, Clinical indication for admission: Dr. Mair Yi DMD was present in the OR for the critical portion of the procedure and procedure sign-out. Signed by Reema Whiting DDS 12/28/2023 1;48 pm Surgical Case Number Data Unavailable Operating Room Data Unavailable Preoperative Diagnosis(es): Pre-op Diagnosis * Caries [K02.9] Moderate intellectual disability [F79] Postoperative Diagnosis(es): Moderate intellectual disability[F79] @ENCORD@ Surgeon: Dr. Mari Yi DMD Vocational Trainer Surgeon: Reema Whiting DDS Anesthesia: General- Nasal ETT Estimated Blood Loss: 10-20 cc IV Fluids: 1200 cc Urine Output: Not measured. Findings: The patient was brought to the operating room and placed in the supine position on the operating room table. Following satisfactory induction of GA, the patient was intubated with a nasal endotracheal tube. He was then prepped and drapped in the usual sterile fashion for dental procedures. A full mouth series was then taken and an oral examination was completed. A moistened throat pack was then placed. The radiographs were examined by the attending and the resident and used in conjunction with the oral exam to formulate a treatment plan. The restorative aspect of the treatment plan included the following Amalgam restorations: #2-B(V), 18-B(V), 19-B, 20-B, 21-B(V), 30-B, 31-OB Composite restorations: #9 F(V), 11-M, 23-DF & MFL, 24-DFL These restorations were placed following excavation of the carious lesions on each tooth. The surgical aspect of the treatment plan included the following extraction(s) and/or root removal: Teeth #1, #16, and #17. Gel foam and a 3.0 chromic gut suture was placed at extraction site #17 only. The remaining dentition was then polished with prophy paste. The oral cavity was irrigated and suctioned, then the throat pack was removed. Fluoride treatment was placed on the remaining dentition. The patient tolerated the procedure well, was extubated in the operating room, and taken to the PACU in stable condition. Complications: None Status at end of surgery: Stable Medications: Outpatient Medications Marked as Taking for the 12/28/23 encounter (Hospital Encounter) Medication Sig Dispense Refill POLYETHYLENE GLYCOL EXTERNAL Take 17 g by mouth daily. montelukast (SINGULAIR) 10 MG tablet Take 10 mg by mouth daily. bisacodyl (DULCOLAX) 10 MG suppository Insert 10 mg in the rectum daily. naloxone 4 mg/0.1 mL nasal liquid Use 1 [place] in one nostril (alternate sides) as needed for Drug Overdose for up to 1 dose. Every 2-3 mins. until help arrives. 2 Each 1 divalproex (DEPAKOTE SPRINKLE) 125 MG CSDR capsule 125 mg 2 times daily. GuanFACINE HCl (TENEX) 4 MG er tablet atorvastatin (LIPITOR) 10 MG tablet Mucus Relief 600 MG SR tablet Take 600 mg by mouth 2 times daily. Calcium Carbonate-Vitamin D (Oyster Shell Calcium/D) 500-200 MG-UNIT TABS Take 1 Tablet by mouth 2 times daily. Linzess 290 MCG CAPS capsule FLUTICASONE PROPIONATE [...] tablet Take 50 mg by mouth daily. Dictated by: Reema Whiting DDS: Dr. Mari Yi DMD was present for the critical portions of the procedure. Reema Whiting DDS 12/28/2023 1:53 pm Blood Attestation: ATTESTATION OF INFORMED CONSENT FOR BLOOD: The transfusion of blood and/or blood components were discussed with the patient and/or legal investment representative. The risks, benefits and alternatives were reviewed. Questions regarding blood transfusions were answered. The patient /or the patient s legal investment representative agree with the plan for transfusion of blood and/or blood components. documented in this encounter [facility] 12-28-2023 Surgery Postoperative evaluation and management note Brief Operative Note [facility] OR 3 Johnny Devine 33 year old male Surgical Contact Serial Number: [id number] Preoperative Diagnosis: Pre-op Diagnosis * Caries [K02.9] Moderate intellectual disability [F79] Postoperative Diagnosis: Moderate intellectual disability [F79] Procedures: Comprehensive exam [43344] Full mouth X-ray [ 90165] Extractions [43620] Restorations [29059] Prophy 06596] Fluoride treatment [20342] Surgeon(s): Surgeon(s): Mari Yi DMD Staff: Lead Manufacturing Engineering Tech Nurse: Henrietta Johnson Anesthesia: General Anesthesia Staff: Selena Camacho APRN-CRNA Specimen(s): * No specimens in log * Estimated Blood Loss: 5-10 cc Lines/Drains: Peripheral IV Access: 12/28/23934 20 gauge Right Antecubital (Active) Site Assessment WNL;Dressing intact 12/28/23934 Infusion Status Port #1 Infusing;Patent 12/28/23934 Temporarily Retained Foreign Object: Yes Location: Oropharynx Object: Throat pack Anticipated removal date: End of the surgery Findings: Normal Complications: None Status at end of surgery: Stable Activity: weight bearing as tolerated and Surgical wound class: Yes, wound was clean contaminated. Patient Class: Outpatient Surgery. Is this a patient scheduled as an outpatient that needs to be admitted as an inpatient? No, Clinical indication for admission: Dr. Mari Yi DMD was present in the OR for the critical portion of the procedure and procedure sign-out. Signed by Reema Whiting DDS 12/28/2023 1;48 pm T [facility] 12-28-2023 Surgery Surgical operation note Surgical Case Number Data Unavailable Operating Room Data Unavailable Preoperative Diagnosis(es): Pre-op Diagnosis * Caries [K02.9] Moderate intellectual disability [F79] Postoperative Diagnosis(es): Moderate intellectual disability[F79] @ENCORD@ Surgeon: Dr. Mari Yi DMD Vocational Trainer Surgeon: Reema Whiting DDS Anesthesia: General- Nasal ETT Estimated Blood Loss: 10-20 cc IV Fluids: 1200 cc Urine Output: Not measured. Findings: The patient was brought to the operating room and placed in the supine position on the operating room table. Following satisfactory induction of GA, the patient was intubated with a nasal endotracheal tube. He was then prepped and drapped in the usual sterile fashion for dental procedures. A full mouth series was then taken and an oral examination was completed. A moistened throat pack was then placed. The radiographs were examined by the attending and the resident and used in conjunction with the oral exam to formulate a treatment plan. The restorative aspect of the treatment plan included the following Amalgam restorations: #2-B(V), 18-B(V), 19-B, 20-B, 21-B(V), 30-B, 31-OB Composite restorations: #9 F(V), 11-M, 23-DF & MFL, 24-DFL These restorations were placed following excavation of the carious lesions on each tooth. The surgical aspect of the treatment plan included the following extraction(s) and/or root removal: Teeth #1, #16, and #17. Gel foam and a 3.0 chromic gut suture was placed at extraction site #17 only. The remaining dentition was then polished with prophy paste. The oral cavity was irrigated and suctioned, then the throat pack was removed. Fluoride treatment was placed on the remaining dentition. The patient tolerated the procedure well, was extubated in the operating room, and taken to the PACU in stable condition. Complications: None Status at end of surgery: Stable Medications: Outpatient Medications Marked as Taking for the 12/28/23 encounter (Hospital Encounter) Medication Sig Dispense Refill POLYETHYLENE GLYCOL EXTERNAL Take 17 g by mouth daily. montelukast (SINGULAIR) 10 MG tablet Take 10 mg by mouth daily. bisacodyl (DULCOLAX) 10 MG suppository Insert 10 mg in the rectum daily. naloxone 4 mg/0.1 mL nasal liquid Use 1 [place] in one nostril (alternate sides) as needed for Drug Overdose for up to 1 dose. Every 2-3 mins. until help arrives. 2 Each 1 divalproex (DEPAKOTE SPRINKLE) 125 MG CSDR capsule 125 mg 2 times daily. GuanFACINE HCl (TENEX) 4 MG er tablet atorvastatin (LIPITOR) 10 MG tablet Mucus Relief 600 MG SR tablet Take 600 mg by mouth 2 times daily. Calcium Carbonate-Vitamin D (Oyster Shell Calcium/D) 500-200 MG-UNIT TABS Take 1 Tablet by mouth 2 times daily. Linzess 290 MCG CAPS capsule FLUTICASONE PROPIONATE [...] tablet Take 50 mg by mouth daily. Dictated by: Reema Whiting DDS: Dr. Mari Yi DMD was present for the critical portions of the procedure. Reema Whiting DDS 12/28/2023 1:53 pm [facility] 12-28-2023 Progress note Formatting of t his note is different from the original. Blood Attestation: ATTESTATION OF INFORMED CONSENT FOR BLOOD: The transfusion of blood and/or blood components were discussed with the patient and/or legal investment representative. The risks, benefits and alternatives were reviewed. Questions regarding blood transfusions were answered. The patient /or the patient s legal investment representative agree with the plan for transfusion of blood and/or blood components. [facility] 12-28-2023 History of Present illness Narrative Patient takes his seizure medication with pudding, facility held them today for dental surgery. Caregiver brought capsules with them to pre-op. Per Dr. Saldivar, divalproex 125 mg x 4 capsules (500 mg) were opened and sprinkles given to patient with 50 mL of water in pre-op. 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 MB cusp tip was visualized upon extraction of #17, but well encased in bone and would not be exposed to the oral cavity following healing of the extraction site. Preoperative Diagnosis(es): Pre-op Diagnosis * Caries [K02.9] Moderate intellectual disability [F79] Postoperative Diagnosis(es): Moderate intellectual disability[F79] Surgeon: Dr. Mari Yi DMD Vocational Trainer Surgeon: Reema Whiting DDS Anesthesia: General- Nasal ETT Estimated Blood Loss: 10-20 cc IV Fluids: 1200 cc Urine Output: Not measured. Findings: The patient was brought to the operating room and placed in the supine position on the operating room table. Following satisfactory induction of GA, the patient was intubated with a nasal endotracheal tube. He was then prepped and drapped in the usual sterile fashion for dental procedures. A full mouth series was then taken and an oral examination was completed. A moistened throat pack was then placed. The radiographs were examined by the attending and the resident and used in conjunction with the oral exam to formulate a treatment plan. The restorative aspect of the treatment plan included the following Amalgam restorations: #2-B(V), 18-B(V), 19-B, 20-B, 21-B(V), 30-B, 31-OB Composite restorations: #9 F(V), 11-M, 23-DF & MFL, 24-DFL These restorations were placed following excavation of the carious lesions on each tooth. The surgical aspect of the treatment plan included the following extraction(s) and/or root removal: Teeth #1, #16, and #17. Gel foam and a 3.0 chromic gut suture was placed at extraction site #17 only. The remaining dentition was then polished with prophy paste. The oral cavity was irrigated and suctioned, then the throat pack was removed. Fluoride treatment was placed on the remaining dentition. The patient tolerated the procedure well, was extubated in the operating room, and taken to the PACU in stable condition. Complications: None Status at end of surgery: Stable documented in this encounter [facility] 12-21-2023 Evaluation note Addendum 12/21/2023- Caregiver @ [facility] facility called to relay that patient unable to take medications without pudding. Per Dr. Newell: Instruct them to take the meds at night. Please then coordinate with either the anesthesia team or surgical team to order IV depacon so he can get his depakote. I would have the facility bring his oral depakote for after surgery If they can't get the depacon at [place] [facility] RN updated nursing staff @ [facility]. [facility] 12-21-2023 Miscellaneous Notes Addendum 12/21/2023- Caregiver @ [facility] facility called to relay that patient unable to take medications without pudding. Per Dr. Newell: Instruct them to take the meds at night. Please then coordinate with either the anesthesia team or surgical team to order IV depacon so he can get his depakote. I would have the facility bring his oral depakote for after surgery If they can't get the depacon at [facility] RN updated nursing staff @ [facility]. Patient was identified by name and date of . Jaswinder Arnulfo Patient at risk for falls:No Falls Risk protocol implemented: N/A documented in this encounter [facility] 12-19-2023 Note Pre-Admission Testin g Consultation Johnny Devine, [id number] 33 year old Male 12/19/2023 Consult placed to [facility] by Mari Yi, due to significant PMH of Hypothyroidism , Bipolar, Autistic disorder ,Epilepsy [facility] Triage Risk Score Total Score: 3 1 Patient has history of arrhythmia. 2 Patient is on more than 2 antihypertension medications. Johnny Devine is scheduled for (Bilateral) DENTAL RESTORATIONS on 12/28/2023. Pre-Op diagnosis of: Pre-Op Diagnosis Codes: * Caries [K02.9] HISTORY OF PRESENT ILLNESS: Patient report history of Autism with developmental delay . Needs dental procedure with anesthesia , 07/16/2023 dental procedure was cancelled due to bradycardia HR 36( stopped Metoprolol per cardiology afterwards) Treatments have not been effective ,no longer effective ,no alternate treatment options available.Surgical intervention warranted . Patient with Lamaar from [facility] facility during this appointment Patient is here for pre-admission optimization and education prior to surgery. RECENT ILLNESS: Serious illness or hospitalization within the last six months. Yes 10/28/2023 HOSPITAL COURSE: Johnny Devine is a 33 year old male with developmental delay and no PSH who presents as a transfer to [facility] from [facility] ED for further management of small bowel obstruction. Given patient's baseline cognitive status, NGT difficult to maintain. He was admitted to the [facility] under care of general surgery and was taken to the OR the following morning for diagnostic laparoscopy. Intra-operative findings demonstrated no adhesins, no apparent hernias, dilated small/large bowel, redundant sigmoid c/f volvulus, easily reduced. After recovering in the PACU, he was taken to the [facility] with NGT in place. Patient arrived to [facility] with 8 Fr pediatric haskins catheter in place, which inadvertently was removed post operatively. Overnight, patient retained urine and Urology was consulted for assistance with haskins catheter replacement. Paraphimosis was noted and could not be reduced. Patient taken back to the OR the following morning 10/29 for dorsal slit procedure. A 10-Fr Haskins was placed without difficulty and will remain for minimum of three days before performing trial void. The remainder of his hospital course is as follows: 10/30 - RN noted blood tinged UOP overnight, cleared to light yellow upon morning assessment. Having bowel function, tolerating diet without vomiting. Added flomax prior to haskins catheter removal. AMET called for tachypnea and question of witnessed seizure by patient's brother while helping him eat. CXR/KUB demonstrate gastric distension and colonic distension. Respiratory rate returned to baseline without any intervention. 10/31 - Haskins removed overnight, spontaneous void. NPO given increased abdominal distension this AM. NGT attempted however could not be placed. +Flatus, +BM. 11/01 - Advanced to CLD. Seizure-like activity in PM - given Ativan. 11/02 - No acute events overnight. Continues on CLD. Neurology consulted - CT head obtained - no acute intracranial process noted. EEG initiated. 11/03 - Advanced to pureed diet. No new reported seizures. 11/04 - Tolerating diet, pain controlled. MRI brain ordered per neuro. 11/05 - Seizure overnight d/t missed doses of Ativan. Given IV VPA. Home medications resumed. Continues on BEM. Tolerating diet. 11/06 - No new seizures while in home regimen. Stable for discharge to alf. Neurology Recommendations on Discharge: - Discharge on anti-epileptic medications as prescribed - Please schedule outpatient follow-up with epilepsy - Please order outpatient MRI without contrast (3T epilepsy protocol) to be done prior to epilepsy appointment STOP BANG: STOP-BANG Row Name 12/19/23 1110 History of sleep apnea? No Snoring No Tired/Fatigued No Observed Apnea No Pressure: Hypertension No BMI greater than 35 0 Age greater than 50 0 Neck circ greater than 40cm (15.75 ) No Gender male? 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 Social History Tobacco Use Smoking status: Unknown Substance Use Topics Alcohol use: Never Drug use: Never MEDICAL HISTORY: No past medical history on file. SURGICAL HISTORY: Past Surgical History: Procedure Laterality Date DENTAL RESTORATIONS N/A 06/13/2018 Procedure: DENTAL RESTORATIONS, extraction; Surgeon: Lyndsay Zuluaga DDS; Location: PERIOPERATIVE SERVICES; [facility] (more content not included)... [facility] 12-19-2023 Instructions Ling Coffman APRN-MOLD BURNER - 12/19/2023 11:26 AM EDT On the morning of your surgery, please take only the following medications, with a small sip of water: divalproex (DEPAKOTE SPRINKLE) 125 MG CSDR capsule atorvastatin (LIPITOR) 10 MG tablet Calcium Carbonate-Vitamin D (Oyster Shell Calcium/D) 500-200 MG-UNIT TABS Linzess 290 MCG CAPS capsule FLUTICASONE PROPIONATE HFA INHALATION cloNIDine (CATAPRES) 0.2 MG tablet famotidine (PEPCID) 20 MG tablet QUEtiapine (SEROQUEL) 200 MG tablet risperiDONE (RISPERDAL) 3 MG tablet sertraline (ZOLOFT) 100 MG tablet levothyroxine (SYNTHROID, LEVOTHROID) 112 MCG tablet lithium 300 MG capsule lorazepam (ATIVAN) 2 MG tablet You will receive a call the day before surgery between 10 am and 3 pm notifying you what time to arrive for surgery. Do not take any Aspirin products 7 days before surgery. Do not take Ibuprofen, Aleve, Advil, Motrin or any other NSAIDS (celebrex, meloxicam, naproxen, diclofenac) 3 days before surgery. May take over the counter Acetaminophen (Tylenol) as needed for pain. Please hold all Vitamin E, Kamas 3, fish oil and herbal supplements for 1 week prior to surgery. Please use this LIST to prepare for your surgery/procedure: ? Assume that any lab or testing done during your Pre-admission testing appointment is within normal limits unless otherwise contacted. ? Expect a call from [facility] one business day prior to surgery for surgery arrival time and location. ? Please plan to restart your medications the day after surgery unless otherwise explicitly instructed. ? Please contact your surgeon s/proceduralist s office for any surgical or recovery types of questions. ? CANCELLING YOUR SURGERY/PROCEDURE: If you get a cold, are not feeling well, or become , please call your surgeon s office as soon as possible. ? Refer to your Preparing for Your Surgery/Procedure booklet or [email or web address] if you have questions. Contact the Pre-Admission Testing department at [phone] or your surgeon's office with any questions that are not answered. ? Eating and drinking before surgery: Adult Patients: No solid food after midnight night before surgery May have clear liquids up to 2 hours before surgery check in time ( water ) Enhanced Recovery After Surgery (ERAS), bariatric, and endoscopy/colonoscopy patients should follow their surgeon s/proceduralist s instructions for clear fluids prior to surgery. ON THE DAY OF SURGERY: ? DO bring your ID, insurance card, medication list, and a small amount of post for filling prescriptions and any medical co-pays. ? DO bring glasses if you wear contacts and other assistance items such as oxygen, inhaler, cane, walker, etc. ? Do NOT bring valuables, credit cards, or large amounts of post. ? Do NOT wear lotion or strong-smelling fragrance (perfume, cologne, cream or lotion). ? Do NOT wear any jewelry, (including rings, earrings, or mouth, tongue, or body piercings). Metal jewelry could cause constriction, amputation, or sosa. Loose or bulky things in your mouth can be unsafe and result in breathing problems. ? ARRANGE FOR A RIDE: If you are scheduled to go home the same day of surgery, a responsible adult MUST drive or accompany you home in a car, cab, shared ride service, or Metro-van. You will not be allowed to drive yourself home or travel home alone. Your surgery may be cancelled if you do not have a ride. A responsible adult must stay with you after surgery. Please call [facility] if you need transportation assistance or have concerns about going home [phone]. ? SLEEP APNEA PATIENTS: Bring your sleep apnea machine and mask. ? PLEASE BE ON TIME. A late arrival may result in the cancellation/ delay of your surgery. Thank you for choosing [facility]; it is our pleasure to care for you documented in this encounter [facility] 12-19-2023 Instructions Shanna Sauceda RN - 12/19/2023 11:26 AM EDT [facility] staff: Since patient is unable to take medications without pudding: Please hold all morning medications on the day of the dental procedure. Be sure to give all routine medications the evening before surgery per usual routine. Please bring patient's depakote to the surgery center on the day of surgery in case anesthesia wants to administer it AFTER the surgery. You will receive a call the day before surgery between 10 am and 3 pm notifying you what time to arrive for surgery. Do not take any Aspirin products 7 days before surgery. Do not take Ibuprofen, Aleve, Advil, Motrin or any other NSAIDS (celebrex, meloxicam, naproxen, diclofenac) 3 days before surgery. May take over the counter Acetaminophen (Tylenol) as needed for pain. Please hold all Vitamin E, Kamas 3, fish oil and herbal supplements for 1 week prior to surgery. Please use this LIST to prepare for your surgery/procedure: ? Assume that any lab or testing done during your Pre-admission testing appointment is within normal limits unless otherwise contacted. ? [facility] business day prior to surgery for surgery arrival time and location. ? Please plan to restart your medications the day after surgery unless otherwise explicitly instructed. ? Please contact your surgeon s/proceduralist s office for any surgical or recovery types of questions. ? CANCELLING YOUR SURGERY/PROCEDURE: If you get a cold, are not feeling well, or become , please call your surgeon s office as soon as possible. ? Refer to your Preparing for Your Surgery/Procedure booklet or [email or web address] if you have questions. Contact the Pre-Admission Testing department at [phone] or your surgeon's office with any questions that are not answered. ? Eating and drinking before surgery: Adult Patients: No solid food after midnight night before surgery May have clear liquids up to 2 hours before surgery check in time ( water ) Enhanced Recovery After Surgery (ERAS), bariatric, and endoscopy/colonoscopy patients should follow their surgeon s/proceduralist s instructions for clear fluids prior to surgery. ON THE DAY OF SURGERY: ? DO bring your ID, insurance card, medication list, and a small amount of post for filling prescriptions and any medical co-pays. ? DO bring glasses if you wear contacts and other assistance items such as oxygen, inhaler, cane, walker, etc. ? Do NOT bring valuables, credit cards, or large amounts of post. ? Do NOT wear lotion or strong-smelling fragrance (perfume, cologne, cream or lotion). ? Do NOT wear any jewelry, (including rings, earrings, or mouth, tongue, or body piercings). Metal jewelry could cause constriction, amputation, or sosa. Loose or bulky things in your mouth can be unsafe and result in breathing problems. ? ARRANGE FOR A RIDE: If you are scheduled to go home the same day of surgery, a responsible adult MUST drive or accompany you home in a car, cab, shared ride service, or Metro-van. You will not be allowed to drive yourself home or travel home alone. Your surgery may be cancelled if you do not have a ride. A responsible adult must stay with you after surgery. Please call [employer] if you need transportation assistance or have concerns about going home [phone]. ? SLEEP APNEA PATIENTS: Bring your sleep apnea machine and mask. ? PLEASE BE ON TIME. A late arrival may result in the cancellation/ delay of your surgery. Thank you for choosing [facility]; it is our pleasure to care for you documented in this encounter [facility] 12-19-2023 Evaluation note Patient was identified by name and date of . Jaswinder Arredondo Patient at risk for falls:No Falls Risk protocol implemented: N/A [facility] 12-19-2023 Miscellaneous Notes Patient was identified by name and date of . Jaswinder Arredondo Patient at risk for falls:No Falls Risk protocol implemented: N/A documented in this encounter [facility] 12-19-2023 History of Present illness Narrative Images from the original note were not included. Pre-Admission Testing Consultation Johnny Devine, [id number] 33 year old Male 12/19/2023 Consult placed to [facility] by Mari Yi, due to significant PMH of Hypothyroidism , Bipolar, Autistic disorder ,Epilepsy [facility] Triage Risk Score Total Score: 3 1 Patient has history of arrhythmia. 2 Patient is on more than 2 antihypertension medications. Johnny Devine is scheduled for (Bilateral) DENTAL RESTORATIONS on 12/28/2023. Pre-Op diagnosis of: Pre-Op Diagnosis Codes: * Caries [K02.9] HISTORY OF PRESENT ILLNESS: Patient report history of Autism with developmental delay . Needs dental procedure with anesthesia , 07/16/2023 dental procedure was cancelled due to bradycardia HR 36( stopped Metoprolol per cardiology afterwards) Treatments have not been effective ,no longer effective ,no alternate treatment options available.Surgical intervention warranted . Patient with Lamaar from [facility] facility during this appointment Patient is here for pre-admission optimization and education prior to surgery. RECENT ILLNESS: Serious illness or hospitalization within the last six months. Yes 10/28/2023 HOSPITAL COURSE: Johnny Devine is a 33 year old male with developmental delay and no PSH who presents as a transfer to [facility] from [facility] ED for further management of small bowel obstruction. Given patient's baseline cognitive status, NGT difficult to maintain. He was admitted to the [facility] under care of general surgery and was taken to the OR the following morning for diagnostic laparoscopy. Intra-operative findings demonstrated no adhesins, no apparent hernias, dilated small/large bowel, redundant sigmoid c/f volvulus, easily reduced. After recovering in the PACU, he was taken to the [facility] with NGT in place. Patient arrived to [facility] with 8 Fr pediatric haskins catheter in place, which inadvertently was removed post operatively. Overnight, patient retained urine and Urology was consulted for assistance with haskins catheter replacement. Paraphimosis was noted and could not be reduced. Patient taken back to the OR the following morning 10/29 for dorsal slit procedure. A 10-Fr Haskins was placed without difficulty and will remain for minimum of three days before performing trial void. The remainder of his hospital course is as follows: 10/30 - RN noted blood tinged UOP overnight, cleared to light yellow upon morning assessment. Having bowel function, tolerating diet without vomiting. Added flomax prior to haskins catheter removal. AMET called for tachypnea and question of witnessed seizure by patient's brother while helping him eat. CXR/KUB demonstrate gastric distension and colonic distension. Respiratory rate returned to baseline without any intervention. 10/31 - Haskins removed overnight, spontaneous void. NPO given increased abdominal distension this AM. NGT attempted however could not be placed. +Flatus, +BM. 11/01 - Advanced to CLD. Seizure-like activity in PM - given Ativan. 11/02 - No acute events overnight. Continues on CLD. Neurology consulted - CT head obtained - no acute intracranial process noted. EEG initiated. 11/03 - Advanced to pureed diet. No new reported seizures. 11/04 - Tolerating diet, pain controlled. MRI brain ordered per neuro. 11/05 - Seizure overnight d/t missed doses of Ativan. Given IV VPA. Home medications resumed. Continues on BEM. Tolerating diet. 11/06 - No new seizures while in home regimen. Stable for discharge to alf. Neurology Recommendations on Discharge: - Discharge on anti-epileptic medications as prescribed - Please schedule outpatient follow-up with epilepsy - Please order outpatient MRI without contrast (3T epilepsy protocol) to be done prior to epilepsy appointment STOP BANG: STOP-BANG Row Name 12/19/23 1110 History of sleep apnea? No Snoring No Tired/Fatigued No Observed Apnea No Pressure: Hypertension No BMI greater than 35 0 Age greater than 50 0 Neck circ greater than 40cm (15.75 ) No Gender male? 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 Social History Tobacco Use Smoking status: Unknown Substance Use Topics Alcohol use: Never Drug use: Never MEDICAL HISTORY: No past medical history on file. SURGICAL HISTORY: Past Surgical History: Procedure Laterality Date DENTAL RESTORATIONS N/A 06/13/2018 Procedure: DENTAL RESTORATIONS, extraction; Surgeon: Lyndsay Zuluaga DDS; Location: PERIOPERATIVE SERVICES; Service: Dental DENTAL RESTORATIONS Bilateral 02/03/2021 Procedure: DENTAL RESTORATIONS; Surgeon: Harpreet Mccurdy DDS; Location: [facility]; Service: Dental Past Medical History and Review of Systems Pulmonary Dental Endo (+) hypothyroidism Neuro/Psych (+) depression, bipolar disorder, anxiety/panic attacks, intellectual disability Comment: OCD , Autism Non verbal ADHD Epilepsy ( Last episodes 10/27- during hospital admission) Cardiovascular (+) hyperlipidemia GI/Hepatic/Renal Heme/Other PREVIOUS ANESTHETIC COMPLICATIONS: no history of difficult intubation , adverse effects of anesthetic agents,nor malignant hyperthermia and hx of previous anesthesia CURRENT MEDICATION LIST: Current Outpatient Medications Medication Sig Dispense Refill divalproex (DEPAKOTE SPRINKLE) 125 MG CSDR capsule 125 mg 2 times daily. GuanFACINE HCl (TENEX) 4 MG er tablet (Patient not taking: Reported on 12/19/2023) atorvastatin (LIPITOR) 10 MG tablet ClearLax 17 GM/SCOOP powder TAKE 17G WITH LIQUID BY MOUTH DAILY IN THE MORNING (Patient not taking: Reported on 12/19/2023) metoprolol (LOPRESSOR) 50 MG tablet (Patient not taking: Reported on 12/19/2023) Mucus Relief 600 MG SR tablet Take 600 mg by mouth 2 times daily. Calcium Carbonate-Vitamin D (Oyster Shell Calcium/D) 500-200 MG-UNIT TABS Take 1 Tablet by mouth 2 times daily. guanfacine (TENEX) 1 MG tablet guanfacine 1 mg tablet (Patient not taking: Reported on 12/19/2023) Linzess 290 MCG CAPS capsule FLUTICASONE PROPIONATE [...] 0.5 mg by mouth 2 times daily. (Patient not taking: Reported on 12/19/2023) clomiPRAMINE (ANAFRANIL) 75 MG capsule Take 75 mg by mouth at bedtime. (Patient not taking: Reported on 12/19/2023) No current facility-administered medications for this visit. HEIGHT: 5' 6 WEIGHT: Weight was 90.3 kg on 07/16/2023 BMI: 31.8 VITAL SIGNS: BP 132/90 Pulse 59 Temp 97.8 F (36.6 C) (Skin) Resp 18 Ht 1.676 m (5' 6 ) Wt 89.4 kg (197 lb) SpO2 97% BMI 31.80 kg/m PAIN ASSESSMENT: Severity: 0 Location: N/A AIRWAY EXAM: Mallampati score: 4 TMD: Adequate Neck Extension/ Flexion: Adequate Mouth Opening: Adequate Dentition: Missing teeth Micrognathia/Overbite: No FUNCTIONAL CAPACITY: 4-10 mets , Patient able to walk 1-2 blocks PHYSICAL EXAM: Eyes: Deferred ENT: Deferred Pulmonary: Chest clear to auscultation bilaterally Cardiovascular: RRR with S1S2 Abdomen: Deferred Extremities: No gross or obvious abnormalities Neurologic: Non verbal Psychiatric: Developmental delay, non verbal Skin: Deferred Assessment and Plan: 1) Pre-Admission Evaluation 2) Pre-Op Diagnosis Codes: * Caries [K02.9]Proceed to surgery 3) h/o Epilepsy- last episode on 10/27 due to missed dose of medication, no other episodes reported afterward LABS, TESTS, CONSULTS ORDERED: Orders & Meds Signed During This Encounter Basic Metabolic Panel divalproex (DEPAKOTE SPRINKLE) 125 MG CSDR capsule LABORATORY DATA: CBC @ [facility] 11/07/2023 CBC Order: [id number] Component Ref Range & Units 1 mo ago WBC 3.70 - 11.00 k/uL 8.67 RBC 4.20 - 6.00 m/uL 3.63 Low Hemoglobin 13.0 - 17.0 g/dL 9.9 Low Hematocrit 39.0 - 51.0 % 31.4 Low MCV 80.0 - 100.0 fL 86.5 MCH 26.0 - 34.0 pg 27.3 MCHC 30.5 - 36.0 g/dL 31.5 RDW-CV 11.5 - 15.0 % 15.1 High Platelet Count 150 - 400 k/uL 215 MPV 9.0 - 12.7 fL 9.4 Absolute nRBC <0.01 k/uL <0.01 Basic Metabolic Panel (Last 5 results in the past 3 years) Na K Cl CO2 Gap Glu BUN Cr Ca 12/19/23 1133 139 4.6 106 25 13 115 15 0.93 9.9 11/07/23 0418 141 110 21 91 Comment: The [place] [employer] (ADA) provides guidance for cutoff values for fasting glucose and random glucose. The ADA defines fasting as no caloric intake for at least 8 hours. Fasting plasma glucose results between 100 to 125 mg/dL indicate increased risk for diabetes (prediabetes). Fasting plasma glucose results greater than or equal to 126 mg/dL meet the criteria for diagnosis of diabetes. In the absence of unequivocal hyperglycemia, results should be confirmed by repeat testing. In a patient with classic symptoms of hyperglycemia or hyperglycemic crisis, random plasma glucose results greater than or equal to 200 mg/dL meet the criteria for diagnosis of diabetes. Reference: Standards of Medical Care in Diabetes 2016, [place] [employer]. Diabetes Care. 2016.39(Suppl 1). 8 0.70 8.2 11/06/23 0943 146 112 18 83 Comment: The [place] [employer] (ADA) provides guidance for cutoff values for fasting glucose and random glucose. The ADA defines fasting as no caloric intake for at least 8 hours. Fasting plasma glucose results between 100 to 125 mg/dL indicate increased risk for diabetes (prediabetes). Fasting plasma glucose results greater than or equal to 126 mg/dL meet the criteria for diagnosis of diabetes. In the absence of unequivocal hyperglycemia, results should be confirmed by repeat testing. In a patient with classic symptoms of hyperglycemia or hyperglycemic crisis, random plasma glucose results greater than or equal to 200 mg/dL meet the criteria for diagnosis of diabetes. Reference: Standards of Medical Care in Diabetes 2016, [place] [employer]. Diabetes Care. 2016.39(Suppl 1). 6 0.69 8.9 11/05/23 0418 142 112 23 96 Comment: The [place] [employer] (ADA) provides guidance for cutoff values for fasting glucose and random glucose. The ADA defines fasting as no caloric intake for at least 8 hours. Fasting plasma glucose results between 100 to 125 mg/dL indicate increased risk for diabetes (prediabetes). Fasting plasma glucose results greater than or equal to 126 mg/dL meet the criteria for diagnosis of diabetes. In the absence of unequivocal hyperglycemia, results should be confirmed by repeat testing. In a patient with classic symptoms of hyperglycemia or hyperglycemic crisis, random plasma glucose results greater than or equal to 200 mg/dL meet the criteria for diagnosis of diabetes. Reference: Standards of Medical Care in Diabetes 2016, [place] [employer]. Diabetes Care. 2016.39(Suppl 1). 5 0.64 7.6 11/04/23 0826 145 112 24 79 Comment: The [place] [employer] (ADA) provides guidance for cutoff values for fasting glucose and random glucose. The ADA defines fasting as no caloric intake for at least 8 hours. Fasting plasma glucose results between 100 to 125 mg/dL indicate increased risk for diabetes (prediabetes). Fasting plasma glucose results greater than or equal to 126 mg/dL meet the criteria for diagnosis of diabetes. In the absence of unequivocal hyperglycemia, results should be confirmed by repeat testing. In a patient with classic symptoms of hyperglycemia or hyperglycemic crisis, random plasma glucose results greater than or equal to 200 mg/dL meet the criteria for diagnosis of diabetes. Reference: Standards of Medical Care in Diabetes 2016, [place] [employer]. Diabetes Care. 2016.39(Suppl 1). 4 0.70 7.7 TESTS REVIEWED: I personally reviewed and interpreting and findings were: CXRay: Chest x-ray was last done on 10/31/2023 EK10/31/2023 @ [facility] NORMAL SINUS RHYTHM ANTEROLATERAL T WAVE ABNORMALITY BORDERLINE PROLONGED QTC ABNORMAL ECG ECHO: Last Echocardiogram: none found going back to 06/10/2018 Stress test date: Last StressTest: none found going back to 06/10/2018 Cardiology 09/18/2023 HPI: He had presented in late June for dental examination under anesthesia, and was found to be severely bradycardic with HR in the 40-50 bpm range. He had been on clonidine and metoprolol chronically, and his metoprolol was stopped at that time. He had no symptoms of any fatigue, CP, SOB, lightheadedness or syncope. IMPRESSION: Sinus bradycardia, asymptomatic, likely multifactorial and due to underlying vagal effects with use of beta antony, guanfacine and clonidine. Bradycardia has resolved off metoprolol. Autism Bipolar disorder PLAN: OK to continue clonidine and pt should remain off metoprolol. Will plan for 6 month f/u visit. Patient is medically optimized for surgery. This note will be forwarded to the referring provider. Patient should follow up with referring provider. Patient has been directed to discuss specific recovery questions with his/her surgeon/proceduralist. Visit activities: - preparing to see the patient (e.g., review of tests) - obtaining and/or reviewing separately obtained history - performing a medically appropriate examination and/or evaluation - counseling and educating the patient/family/caregiver - ordering medications, tests, or procedures - documenting clinical information in the electronic or other health record Interviewer signature: SAMEER Noel 1:39 PM 12/19/2023 documented in this encounter [facility] 12-19-2023 History of Present illness Narrative Images from the original note were not included. Pre-Admission Testing Consultation Johnny Devine, [id number] 33 year old Male 12/19/2023 Consult placed to [facility] by Mari Yi, due to significant PMH of Hypothyroidism , Bipolar, Autistic disorder ,Epilepsy [facility] Triage Risk Score Total Score: 3 1 Patient has history of arrhythmia. 2 Patient is on more than 2 antihypertension medications. Johnny Devine is scheduled for (Bilateral) DENTAL RESTORATIONS on 12/28/2023. Pre-Op diagnosis of: Pre-Op Diagnosis Codes: * Caries [K02.9] HISTORY OF PRESENT ILLNESS: Patient report history of Autism with developmental delay . Needs dental procedure with anesthesia , 07/16/2023 dental procedure was cancelled due to bradycardia HR 36( stopped Metoprolol per cardiology afterwards) Treatments have not been effective ,no longer effective ,no alternate treatment options available.Surgical intervention warranted . Patient with [facility] from [facility] facility during this appointment Patient is here for pre-admission optimization and education prior to surgery. RECENT ILLNESS: Serious illness or hospitalization within the last six months. Yes 10/28/2023 HOSPITAL COURSE: Johnny Devine is a 33 year old male with developmental delay and no PSH who presents as a transfer to [facility] from [facility] ED for further management of small bowel obstruction. Given patient's baseline cognitive status, NGT difficult to maintain. He was admitted to the [facility] under care of general surgery and was taken to the OR the following morning for diagnostic laparoscopy. Intra-operative findings demonstrated no adhesins, no apparent hernias, dilated small/large bowel, redundant sigmoid c/f volvulus, easily reduced. After recovering in the PACU, he was taken to the [facility] with NGT in place. Patient arrived to [facility] with 8 Fr pediatric haskins catheter in place, which inadvertently was removed post operatively. Overnight, patient retained urine and Urology was consulted for assistance with haskins catheter replacement. Paraphimosis was noted and could not be reduced. Patient taken back to the OR the following morning 10/29 for dorsal slit procedure. A 10-Fr Haskins was placed without difficulty and will remain for minimum of three days before performing trial void. The remainder of his hospital course is as follows: 10/30 - RN noted blood tinged UOP overnight, cleared to light yellow upon morning assessment. Having bowel function, tolerating diet without vomiting. Added flomax prior to haskins catheter removal. AMET called for tachypnea and question of witnessed seizure by patient's brother while helping him eat. CXR/KUB demonstrate gastric distension and colonic distension. Respiratory rate returned to baseline without any intervention. 10/31 - Haskins removed overnight, spontaneous void. NPO given increased abdominal distension this AM. NGT attempted however could not be placed. +Flatus, +BM. 11/01 - Advanced to CLD. Seizure-like activity in PM - given Ativan. 11/02 - No acute events overnight. Continues on CLD. Neurology consulted - CT head obtained - no acute intracranial process noted. EEG initiated. 11/03 - Advanced to pureed diet. No new reported seizures. 11/04 - Tolerating diet, pain controlled. MRI brain ordered per neuro. 11/05 - Seizure overnight d/t missed doses of Ativan. Given IV VPA. Home medications resumed. Continues on BEM. Tolerating diet. 11/06 - No new seizures while in home regimen. Stable for discharge to alf. Neurology Recommendations on Discharge: - Discharge on anti-epileptic medications as prescribed - Please schedule outpatient follow-up with epilepsy - Please order outpatient MRI without contrast (3T epilepsy protocol) to be done prior to epilepsy appointment STOP BANG: STOP-BANG Row Name 12/19/23 1110 History of sleep apnea? No Snoring No Tired/Fatigued No Observed Apnea No Pressure: Hypertension No BMI greater than 35 0 Age greater than 50 0 Neck circ greater than 40cm (15.75 ) No Gender male? 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 Social History Tobacco Use Smoking status: Unknown Substance Use Topics Alcohol use: Never Drug use: Never MEDICAL HISTORY: No past medical history on file. SURGICAL HISTORY: Past Surgical History: Procedure Laterality Date DENTAL RESTORATIONS N/A 06/13/2018 Procedure: DENTAL RESTORATIONS, extraction; Surgeon: Lyndsay Zuluaga DDS; Location: [facility]; Service: Dental DENTAL RESTORATIONS Bilateral 02/03/2021 Procedure: DENTAL RESTORATIONS; Surgeon: Harpreet Mccurdy DDS; Location: [facility]; Service: Dental Past Medical History and Review of Systems Pulmonary Dental Endo (+) hypothyroidism Neuro/Psych (+) depression, bipolar disorder, anxiety/panic attacks, intellectual disability Comment: OCD , Autism Non verbal ADHD Epilepsy ( Last episodes 10/27- during hospital admission) Cardiovascular (+) hyperlipidemia GI/Hepatic/Renal Heme/Other PREVIOUS ANESTHETIC COMPLICATIONS: no history of difficult intubation , adverse effects of anesthetic agents,nor malignant hyperthermia and hx of previous anesthesia CURRENT MEDICATION LIST: Current Outpatient Medications Medication Sig Dispense Refill divalproex (DEPAKOTE SPRINKLE) 125 MG CSDR capsule 125 mg 2 times daily. GuanFACINE HCl (TENEX) 4 MG er tablet (Patient not taking: Reported on 12/19/2023) atorvastatin (LIPITOR) 10 MG tablet ClearLax 17 GM/SCOOP powder TAKE 17G WITH LIQUID BY MOUTH DAILY IN THE MORNING (Patient not taking: Reported on 12/19/2023) metoprolol (LOPRESSOR) 50 MG tablet (Patient not taking: Reported on 12/19/2023) Mucus Relief 600 MG SR tablet Take 600 mg by mouth 2 times daily. Calcium Carbonate-Vitamin D (Oyster Shell Calcium/D) 500-200 MG-UNIT TABS Take 1 Tablet by mouth 2 times daily. guanfacine (TENEX) 1 MG tablet guanfacine 1 mg tablet (Patient not taking: Reported on 12/19/2023) Linzess 290 MCG CAPS capsule FLUTICASONE PROPIONATE [...] 0.5 mg by mouth 2 times daily. (Patient not taking: Reported on 12/19/2023) clomiPRAMINE (ANAFRANIL) 75 MG capsule Take 75 mg by mouth at bedtime. (Patient not taking: Reported on 12/19/2023) No current facility-administered medications for this visit. HEIGHT: 5' 6 WEIGHT: Weight was 90.3 kg on 07/16/2023 BMI: 31.8 VITAL SIGNS: BP 132/90 Pulse 59 Temp 97.8 F (36.6 C) (Skin) Resp 18 Ht 1.676 m (5' 6 ) Wt 89.4 kg (197 lb) SpO2 97% BMI 31.80 kg/m PAIN ASSESSMENT: Severity: 0 Location: N/A AIRWAY EXAM: Mallampati score: 4 TMD: Adequate Neck Extension/ Flexion: Adequate Mouth Opening: Adequate Dentition: Missing teeth Micrognathia/Overbite: No FUNCTIONAL CAPACITY: 4-10 mets , Patient able to walk 1-2 blocks PHYSICAL EXAM: Eyes: Deferred ENT: Deferred Pulmonary: Chest clear to auscultation bilaterally Cardiovascular: RRR with S1S2 Abdomen: Deferred Extremities: No gross or obvious abnormalities Neurologic: Non verbal Psychiatric: Developmental delay, non verbal Skin: Deferred Assessment and Plan: 1) Pre-Admission Evaluation 2) Pre-Op Diagnosis Codes: * Caries [K02.9]Proceed to surgery 3) h/o Epilepsy- last episode on 10/27 due to missed dose of medication, no other episodes reported afterward LABS, TESTS, CONSULTS ORDERED: Orders & Meds Signed During This Encounter Basic Metabolic Panel divalproex (DEPAKOTE SPRINKLE) 125 MG CSDR capsule LABORATORY DATA: CBC @ [facility] 11/07/2023 CBC Order: [id number] Component Ref Range & Units 1 mo ago WBC 3.70 - 11.00 k/uL 8.67 RBC 4.20 - 6.00 m/uL 3.63 Low Hemoglobin 13.0 - 17.0 g/dL 9.9 Low Hematocrit 39.0 - 51.0 % 31.4 Low MCV 80.0 - 100.0 fL 86.5 MCH 26.0 - 34.0 pg 27.3 MCHC 30.5 - 36.0 g/dL 31.5 RDW-CV 11.5 - 15.0 % 15.1 High Platelet Count 150 - 400 k/uL 215 MPV 9.0 - 12.7 fL 9.4 Absolute nRBC <0.01 k/uL <0.01 Basic Metabolic Panel (Last 5 results in the past 3 years) Na K Cl CO2 Gap Glu BUN Cr Ca 12/19/23 1133 139 4.6 106 25 13 115 15 0.93 9.9 11/07/23 0418 141 110 21 91 Comment: The [place] [employer] (ADA) provides guidance for cutoff values for fasting glucose and random glucose. The ADA defines fasting as no caloric intake for at least 8 hours. Fasting plasma glucose results between 100 to 125 mg/dL indicate increased risk for diabetes (prediabetes). Fasting plasma glucose results greater than or equal to 126 mg/dL meet the criteria for diagnosis of diabetes. In the absence of unequivocal hyperglycemia, results should be confirmed by repeat testing. In a patient with classic symptoms of hyperglycemia or hyperglycemic crisis, random plasma glucose results greater than or equal to 200 mg/dL meet the criteria for diagnosis of diabetes. Reference: Standards of Medical Care in Diabetes 2016, [place] [employer]. Diabetes Care. 2016.39(Suppl 1). 8 0.70 8.2 11/06/23 0943 146 112 18 83 Comment: The [place] [employer] (ADA) provides guidance for cutoff values for fasting glucose and random glucose. The ADA defines fasting as no caloric intake for at least 8 hours. Fasting plasma glucose results between 100 to 125 mg/dL indicate increased risk for diabetes (prediabetes). Fasting plasma glucose results greater than or equal to 126 mg/dL meet the criteria for diagnosis of diabetes. In the absence of unequivocal hyperglycemia, results should be confirmed by repeat testing. In a patient with classic symptoms of hyperglycemia or hyperglycemic crisis, random plasma glucose results greater than or equal to 200 mg/dL meet the criteria for diagnosis of diabetes. Reference: Standards of Medical Care in Diabetes 2016, [place] [employer]. Diabetes Care. 2016.39(Suppl 1). 6 0.69 8.9 11/05/23 0418 142 112 23 96 Comment: The [place] [employer] (ADA) provides guidance for cutoff values for fasting glucose and random glucose. The ADA defines fasting as no caloric intake for at least 8 hours. Fasting plasma glucose results between 100 to 125 mg/dL indicate increased risk for diabetes (prediabetes). Fasting plasma glucose results greater than or equal to 126 mg/dL meet the criteria for diagnosis of diabetes. In the absence of unequivocal hyperglycemia, results should be confirmed by repeat testing. In a patient with classic symptoms of hyperglycemia or hyperglycemic crisis, random plasma glucose results greater than or equal to 200 mg/dL meet the criteria for diagnosis of diabetes. Reference: Standards of Medical Care in Diabetes 2016, [place] [employer]. Diabetes Care. 2016.39(Suppl 1). 5 0.64 7.6 11/04/23 0826 145 112 24 79 Comment: The [place] [employer] (ADA) provides guidance for cutoff values for fasting glucose and random glucose. The ADA defines fasting as no caloric intake for at least 8 hours. Fasting plasma glucose results between 100 to 125 mg/dL indicate increased risk for diabetes (prediabetes). Fasting plasma glucose results greater than or equal to 126 mg/dL meet the criteria for diagnosis of diabetes. In the absence of unequivocal hyperglycemia, results should be confirmed by repeat testing. In a patient with classic symptoms of hyperglycemia or hyperglycemic crisis, random plasma glucose results greater than or equal to 200 mg/dL meet the criteria for diagnosis of diabetes. Reference: Standards of Medical Care in Diabetes 2016, [place] [employer]. Diabetes Care. 2016.39(Suppl 1). 4 0.70 7.7 TESTS REVIEWED: I personally reviewed and interpreting and findings were: CXRay: Chest x-ray was last done on 10/31/2023 EK10/31/2023 @ [facility] NORMAL SINUS RHYTHM ANTEROLATERAL T WAVE ABNORMALITY BORDERLINE PROLONGED QTC ABNORMAL ECG ECHO: Last Echocardiogram: none found going back to 06/10/2018 Stress test date: Last StressTest: none found going back to 06/10/2018 Cardiology 09/18/2023 HPI: He had presented in late June for dental examination under anesthesia, and was found to be severely bradycardic with HR in the 40-50 bpm range. He had been on clonidine and metoprolol chronically, and his metoprolol was stopped at that time. He had no symptoms of any fatigue, CP, SOB, lightheadedness or syncope. IMPRESSION: Sinus bradycardia, asymptomatic, likely multifactorial and due to underlying vagal effects with use of beta antony, guanfacine and clonidine. Bradycardia has resolved off metoprolol. Autism Bipolar disorder PLAN: OK to continue clonidine and pt should remain off metoprolol. Will plan for 6 month f/u visit. Patient is medically optimized for surgery. This note will be forwarded to the referring provider. Patient should follow up with referring provider. Patient has been directed to discuss specific recovery questions with his/her surgeon/proceduralist. Visit activities: - preparing to see the patient (e.g., review of tests) - obtaining and/or reviewing separately obtained history - performing a medically appropriate examination and/or evaluation - counseling and educating the patient/family/caregiver - ordering medications, tests, or procedures - documenting clinical information in the electronic or other health record Interviewer signature: SAMEER Noel 1:39 PM 12/19/2023 documented in this encounter [facility] 12-03-2023 Note HNO ID: [id number] Author: OSCAR RUIZ MD Service: ? Author Type: Fellow Type: Progress Notes Filed: 12/03/2023 13:58 Note Text: I had the pleasure of seeing this 33-year-old gentleman in follow-up following a dorsal slit procedure performed emergently for 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 The surgery was performed a month ago. He was seen accompanied by his caregiver. His caregiver reports that he has no issues voiding. On examination, the dorsal foot suture line is healing well with no concerns. The foreskin is fully retractable now. 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 PLAN: No concerns following dorsal slit procedure. The patient will be discharged from ongoing urologic care. Oscar Ruiz MD [facility] 12-03-2023 Note Patient Outreach (UR OLMN) NILSONJOHNNY TERRY ([id number]) 1990 M Date Time Provider Department 12/03/23 RAFAEL GIRALDO During your visit today, we recorded the following information about you: Allergies As of Date: 12/03/2023 Noted Allergy Reaction BIAXIN (CLARITHROMYCIN) 05/04/2022 14 - Other: See Comments Comments: caregiver does not know Date Reviewed: 12/03/2023 Reviewed by: Sukhdeep Barton OCCA - Fully Assessed Visit Diagnosis:Screening for genitourinary condition [Z13.89] Order(s):URINALYSIS, REFLEX MICROSCOPIC [SCA0552] Order #: [id number] Prescriptions as of 12/06/2023 - cloNIDine HCl (CATAPRES) 0.2 mg tablet Take 1 tablet by mouth three times a day. 0800, 1600, 2000 Please check blood pressure prior to administration and hold for systolic blood pressure < 100 - QUEtiapine (SEROQUEL) 100 mg tablet Take 1 tablet by mouth two times a day. - divalproex DR (DEPAKOTE) 125 mg EC tablet Take 125 mg by mouth two times a day. 0200, 1999 - loratadine 10 mg cap Take 10 mg by mouth daily at bedtime. - montelukast (SINGULAIR) 10 mg tablet Take 10 mg by mouth daily at bedtime. - denosumab (PROLIA) 60 mg/mL Inject 60 mg subcutaneously one time only. - sertraline (ZOLOFT) 50 mg tablet Take 50 mg by mouth once daily. Take with 100mg zoloft in the morning - atorvastatin (LIPITOR) 10 mg tablet - clomiPRAMINE (ANAFRANIL) 75 mg capsule - famotidine (PEPCID) 20 mg tablet - fluticasone (FLONASE) 50 mcg/actuation nasal spray INSTILL 2 SPRAYS PER NOSTRIL EVERY MORNING FOR SINUS CONGESTION - guanFACINE (INTUNIV ER) 4 mg Tb24 Take 4 mg by mouth once daily. - levothyroxine (SYNTHROID) 112 mcg tablet Take 112 mcg by mouth once daily. - LINZESS 290 mcg capsule Take 290 mcg by mouth once daily. - lithium carbonate (ESKALITH) 300 mg capsule Take 300 mg by mouth two times a day. 1999 - LORazepam (ATIVAN) 2 mg tab TAKE ONE TABLET BY MOUTH 3 TIMES DAILY ATIVAN - MUCUS RELIEF ER 600 mg 12 hr tablet Take 600 mg by mouth twice daily. - naltrexone (TREXAN) 50 mg tablet Take 50 mg by mouth two times a day. - OYSTER SHELL CALCIUM-VITAMIN D 500 mg-5 mcg (200 unit) per tablet Take 1 tablet by mouth twice daily. - polyethylene glycol 3350 (MIRALAX, GLYCOLAX) 17 gram/dose powder Take 17 g by mouth once daily. - Sennosides 8.6 mg cap Take 8.6 mg by mouth as needed. - risperiDONE (RISPERDAL) 3 mg tablet Take 3 mg by mouth two times a day. 1999 - sertraline (ZOLOFT) 100 mg tablet Take 50 mg by mouth once daily. Take with 50 mg zoloft in the morning. 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 The surgery was performed a month ago. He was seen accompanied by his caregiver. His caregiver reports that he has no issues voiding. On examination, the dorsal foot suture line is healing well with no concerns. The foreskin is fully retractable now. 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 PLAN: No concerns following dorsal slit procedure. The patient will be discharged from ongoing urologic care. Oscar Ruiz MD documented in this encounter [facility] 11-28-2023 Note HNO ID: [id number] Author: VICTORIA SANCHEZ APRN.MOLD BURNER Service: ? Author Type: Nurse Practitioner Type: Progress Notes Filed: 11/28/2023 10:19 Note Text: [facility] Clinic Date: November 28, 2023 Johnny Devine 33 year old male CHIEF COMPLAINT: Patient presents for follow up from surgery. HPI: Here for follow up after diagnostic laparotomy on 10/29/[address] Robin. Patient also underwent a dorsal slit procedure with urology on 10/30/2023 for paraphimosis. Patient with a slate cutter today to discuss his postoperative course since patient is nonverbal. Pain: No non=verbal cues indicating pain. No pain medication Incisional Drainage: Denies Incisional Erythema: Denies Fever/Chills: Denies Increased Heart Rate: Denies Constipation: Having a bowel movement daily. Using suppository at facility Diarrhea: Denies Nausea/Vomiting: Deneis Difficulty Voiding: Denies, to see urology next Sunday. Decreased Urine Output: Denies Shortness of Breath: Denies Cough / Wheezing: Denies Calf/Thigh pain or swelling: Denies Current Diet: Regular diet Present Activity level: Walking, all daily activities Current Medications: Current Outpatient Medications Medication Sig Dispense Refill cloNIDine HCl (CATAPRES) 0.2 mg tablet Take 1 tablet by mouth three times a day. 0800, 1600, 1999 Please check blood pressure prior to administration and hold for systolic blood pressure < 100 bisacodyl (DULCOLAX) 10 mg supp 1 Suppository by RECTAL route once daily. 30 Each 0 QUEtiapine (SEROQUEL) 100 mg tablet Take 1 tablet by mouth two times a day. [address] (DEPAKOTE) 125 mg EC tablet Take 125 mg by mouth two times a day. 020, 1999 loratadine 10 mg cap Take 10 mg by mouth daily at bedtime. montelukast (SINGULAIR) 10 mg tablet Take 10 mg by mouth daily at bedtime. denosumab (PROLIA) 60 mg/mL Inject 60 mg subcutaneously one time only. sertraline (ZOLOFT) 50 mg tablet Take 50 mg by mouth once daily. Take with 100mg zoloft in the morning atorvastatin (LIPITOR) 10 mg tablet clomiPRAMINE (ANAFRANIL) 75 mg capsule (Patient not taking: Reported on 10/28/2023) famotidine (PEPCID) 20 mg tablet fluticasone (FLONASE) 50 mcg/actuation nasal spray INSTILL 2 SPRAYS PER NOSTRIL EVERY MORNING FOR SINUS CONGESTION guanFACINE (INTUNIV ER) 4 mg Tb24 Take 4 mg by mouth once daily. levothyroxine (SYNTHROID) 112 mcg tablet Take 112 mcg by mouth once daily. LINZESS 290 mcg capsule Take 290 mcg by mouth once daily. lithium carbonate (ESKALITH) 300 mg capsule Take 300 mg by mouth two times a day. 1999 LORazepam (ATIVAN) 2 mg tab TAKE ONE TABLET BY MOUTH 3 TIMES DAILY ATIVAN MUCUS RELIEF ER 600 mg 12 hr tablet Take 600 mg by mouth twice daily. naltrexone (TREXAN) 50 mg tablet Take 50 mg by mouth two times a day. OYSTER SHELL CALCIUM-VITAMIN D 500 mg-5 mcg (200 unit) per tablet Take 1 tablet by mouth twice daily. polyethylene glycol 3350 (MIRALAX, GLYCOLAX) 17 gram/dose powder Take 17 g by mouth once daily. Sennosides 8.6 mg cap Take 8.6 mg by mouth as needed. risperiDONE (RISPERDAL) 3 mg tablet Take 3 mg by mouth two times a day. 1999 sertraline (ZOLOFT) 100 mg tablet Take 50 mg by mouth once daily. Take with 50 mg zoloft in the morning. No current facility-administered medications for this visit. REVIEW OF SYSTEMS: CONSTITUTIONAL: Patient denies fevers, chills, sweats CARDIOVASCULAR: Patient denies chest pains, palpitations RESPIRATORY: No dyspnea on exertion, no wheezing or cough. GI: No diarrhea. No constipation. No nausea/vomiting. MUSCULOSKELETAL: No new myalgias or arthralgias. DERMATOLOGIC: Patient denies any rashes or skin changes. PHYSICAL EXAM: BP 134/66 Pulse 83 Temp 36.4 ?C (97.5 ?F) (Temporal) Ht 167.6 cm (5' 6 ) Wt 87.5 kg (193 lb) BMI 31.15 kg/m? GENERAL: No apparent distress. Pt is alert and oriented x3. LUNGS: Lungs clear and equal. No wheezing HEART: Regular rate and rhythm without murmur. No leg edema ABDOMEN: Soft, nontender, and nondistended. Positive bowel sounds. EXTREMITIES: Without any cyanosis, clubbing, rash, lesions or edema. INCISIONS: Well-healed lap scars. No s/s of infection. SURGICAL PATHOLOGY: N/A ASSESSMENT/PLAN: 1. Postoperative visit - ICD9: V58.49, ICD10: Z48.89 -Recovering well, incision healed great -Continue suppositories as needed for chronic constipation -Follow up with urology on Sunday for post op appt -Will discuss with Dr. Robin if he needs to be seen by him or Dr. Fairbanks for further surgery discussion Victoria Sanchez, MSN, REBAR FABRICATOR-MOLD BURNER November 28, 2023 [facility] 11-28-2023 History of Present illness Narrative [facility] Clinic Date: November 28, 2023 Johnny Devine 33 year old male CHIEF COMPLAINT: Patient presents for follow up from surgery. HPI: Here for follow up after diagnostic laparotomy on 10/29/[address] Robin. Patient also underwent a dorsal slit procedure with urology on 10/30/2023 for paraphimosis. Patient with a slate cutter today to discuss his postoperative course since patient is nonverbal. Pain: No non=verbal cues indicating pain. No pain medication Incisional Drainage: Denies Incisional Erythema: Denies Fever/Chills: Denies Increased Heart Rate: Denies Constipation: Having a bowel movement daily. Using suppository at facility Diarrhea: Denies Nausea/Vomiting: Deneis Difficulty Voiding: Denies, to see urology next Sunday. Decreased Urine Output: Denies Shortness of Breath: Denies Cough / Wheezing: Denies Calf/Thigh pain or swelling: Denies Current Diet: Regular diet Present Activity level: Walking, all daily activities Current Medications: Current Outpatient Medications Medication Sig Dispense Refill cloNIDine HCl (CATAPRES) 0.2 mg tablet Take 1 tablet by mouth three times a day. 0800, 1600, 1999 Please check blood pressure prior to administration and hold for systolic blood pressure < 100 bisacodyl (DULCOLAX) 10 mg supp 1 Suppository by RECTAL route once daily. 30 Each 0 QUEtiapine (SEROQUEL) 100 mg tablet Take 1 tablet by mouth two times a day. [address] (DEPAKOTE) 125 mg EC tablet Take 125 mg by mouth two times a day. 1999 loratadine 10 mg cap Take 10 mg by mouth daily at bedtime. montelukast (SINGULAIR) 10 mg tablet Take 10 mg by mouth daily at bedtime. denosumab (PROLIA) 60 mg/mL Inject 60 mg subcutaneously one time only. sertraline (ZOLOFT) 50 mg tablet Take 50 mg by mouth once daily. Take with 100mg zoloft in the morning atorvastatin (LIPITOR) 10 mg tablet clomiPRAMINE (ANAFRANIL) 75 mg capsule (Patient not taking: Reported on 10/28/2023) famotidine (PEPCID) 20 mg tablet fluticasone (FLONASE) 50 mcg/actuation nasal spray INSTILL 2 SPRAYS PER NOSTRIL EVERY MORNING FOR SINUS CONGESTION guanFACINE (INTUNIV ER) 4 mg Tb24 Take 4 mg by mouth once daily. levothyroxine (SYNTHROID) 112 mcg tablet Take 112 mcg by mouth once daily. LINZESS 290 mcg capsule Take 290 mcg by mouth once daily. lithium carbonate (ESKALITH) 300 mg capsule Take 300 mg by mouth two times a day. 1999 LORazepam (ATIVAN) 2 mg tab TAKE ONE TABLET BY MOUTH 3 TIMES DAILY ATIVAN MUCUS RELIEF ER 600 mg 12 hr tablet Take 600 mg by mouth twice daily. naltrexone (TREXAN) 50 mg tablet Take 50 mg by mouth two times a day. OYSTER SHELL CALCIUM-VITAMIN D 500 mg-5 mcg (200 unit) per tablet Take 1 tablet by mouth twice daily. polyethylene glycol 3350 (MIRALAX, GLYCOLAX) 17 gram/dose powder Take 17 g by mouth once daily. Sennosides 8.6 mg cap Take 8.6 mg by mouth as needed. risperiDONE (RISPERDAL) 3 mg tablet Take 3 mg by mouth two times a day. 799, 1999 sertraline (ZOLOFT) 100 mg tablet Take 50 mg by mouth once daily. Take with 50 mg zoloft in the morning. No current facility-administered medications for this visit. REVIEW OF SYSTEMS: CONSTITUTIONAL: Patient denies fevers, chills, sweats CARDIOVASCULAR: Patient denies chest pains, palpitations RESPIRATORY: No dyspnea on exertion, no wheezing or cough. GI: No diarrhea. No constipation. No nausea/vomiting. MUSCULOSKELETAL: No new myalgias or arthralgias. DERMATOLOGIC: Patient denies any rashes or skin changes. PHYSICAL EXAM: BP 134/66 Pulse 83 Temp 36.4 C (97.5 F) (Temporal) Ht 167.6 cm (5' 6 ) Wt 87.5 kg (193 lb) BMI 31.15 kg/m GENERAL: No apparent distress. Pt is alert and oriented x3. LUNGS: Lungs clear and equal. No wheezing HEART: Regular rate and rhythm without murmur. No leg edema ABDOMEN: Soft, nontender, and nondistended. Positive bowel sounds. EXTREMITIES: Without any cyanosis, clubbing, rash, lesions or edema. INCISIONS: Well-healed lap scars. No s/s of infection. SURGICAL PATHOLOGY: N/A ASSESSMENT/PLAN: 1. Postoperative visit - ICD9: V58.49, ICD10: Z48.89 -Recovering well, incision healed great -Continue suppositories as needed for chronic constipation -Follow up with urology on Sunday for post op appt -Will discuss with Dr. Robin if he needs to be seen by him or Dr. Fairbanks for further surgery discussion Victoria Sanchez, MSN, REBAR FABRICATOR-MOLD BURNER November 28, 2023 documented in this encounter [facility] 11-28-2023 Nurse Note What is the reason for your visit today? Post op Who is your referring physician? Dr. Sanchez Are you having poor oral intake? NO Have you had unintentional weight loss of 15 lbs/7 Kg in the last 3-6 months? NO Bowels: regular Wound: clean & dry Temperature: No Drains: No documented in this encounter [facility] 11-12-2023 Miscellaneous Notes Called care facility and spoke to Rosy. Patient is scheduled to see their PCP tomorrow and Rosy will let us know after that if patient truly needs to be seen in clinic 11/22/[address] Fairbanks. If patient feeling well appt can be cancelled and pt just follow up with Dr. Robin. Included point ppl on communication (Leslye and Carlita) along with Katherine as she will be covering Dr. Fairbanks clinic 11/22/2023. No further needs at present time. Office line given. Cris Dinh RN documented in this encounter [facility] 11-07-2023 Note HNO ID: [id number] Author: HERMAN SALOMON RN Service: Care Management Author Type: Registered Nurse Type: Care Mgt Progress Note Filed: 11/07/2023 14:56 Note Text: CARE MANAGEMENT DISCHARGE NOTE SERVICE DATE: November 07, 2023 SERVICE TIME: 2:56 PM Admission Date: 10/28/2023 LOS: 10 days Discharge Arrangement Discharge Arrangement: Half-Way Services Arranged Medical Services: Other: See Comment (no services indicated) Caregiver Assessment Caregiver is ready, willing and able to meet the patient's needs as recommended by the inter-professional team: Yes Name of Caregiver: [facility] Transportation Arrangements Transportation Arrangements: Car Destination: Half-Way Additional Information: Patient d/c ready to Half-Way with no skilled needs identified. Patient and bedside RN aware of plan. residential to transport patient home via private auto. SIGNATURE: Herman Salomon RN PATIENT NAME: Johnny Devine DATE: November 07, 2023 TIME: 2:55 PM CONTACT #: [phone] [facility] 11-07-2023 Note HNO ID: [id number] Author: GIA MULLER MD Service: General Surgery Author Type: Physician Type: Progress Notes Filed: 11/07/2023 10:01 Note Text: GENERAL SURGERY PROGRESS NOTE PATIENT NAME: Johnny Devine AGE: [age] year old : 1990 SEX: male ASSESSMENT: Johnny Devine is a 33 year old male non-verbal, developmental delay, who is now s/p dx lap for SBO, sigmoid volvulus was found. Now scheduled for OR with urology today for paraphimosis reduction after haskins placement. - Patient had reported seizure like activity on 11/01. Unclear the etiology, possible lorazepam withdrawal or due to holding anti-seizures meds due to altered mental status. PLAN: - Appreciate neurology recommendations, Continue home meds, please make sure there is no skipped doses - Continue purred diet - Dispo: RNF, plan to discharge back to facility when cleared by neurology. Likely today Plan to be discussed with Staff, Dr. Boy MD. Gia Archuleta MD Abdominal Wall Reconstruction Fellow SUBJECTIVE: No major events overnight. OBJECTIVE: VITAL SIGNS: BP 99/61 Pulse (!) 54 Temp 36.3 ?C (97.4 ?F) (Axillary) Resp 16 Ht 172.7 cm (5' 8 ) Wt 96.6 kg (212 lb 15.4 oz) SpO2 97% BMI 32.38 kg/m? Body mass index is 32.38 kg/m?. PHYSICAL EXAM: GENERAL: Alert and oriented, no acute distress, cooperative. LUNGS: Non-labored breathing on RA LNC ABDOMEN: soft, non-tender, non-distended. WOUND: clean, dry and intact. LINES/TUBES: LABS: CBC, Coags, BMP, Mg, Phos Recent Labs 11/07/23 0418 11/06/23 1646 11/06/23 0943 11/05/23 0419 11/05/23 0418 WBC 8.67 7.59 -- 7.54 -- HB 9.9* 9.8* -- 9.7* -- HCT 31.4* 31.3* -- 30.8* -- PLT 215 244 -- 205 -- NA 141 -- 146* -- 142 K 4.4 -- 4.9 -- 4.2 CHLOR 110* -- 112* -- 112* CO2 21* -- 18* -- 23 BUN 8* -- 6* -- 5* CREAT 0.70* -- 0.69* -- 0.64* GLUC 91 -- 83 -- 96 CA 8.2* -- 8.9 -- 7.6* MG 2.1 -- 2.3 -- 2.0 P 4.1 -- 4.1 -- 3.1 Liver Function, Amylase, AND Lipase I/O PAST 24HRS: Intake/Output Summary (Last 24 hours) at 11/07/2023 1000 Last data filed at 11/07/2023 0709 Gross per 24 hour Intake 120 ml Output 1600 ml Net -1480 ml LINE, DRAINS AND AIRWAY: Lines, Drains, and Airways Line Duration Peripheral 10/31/23 1632 Right Antecubital 20 Gauge 6 days Drain Duration External Collection Device 11/03/23 0629 4 days SURGERY/PROCEDURE: Procedure(s) and Anesthesia Type: * DORSAL SLIT FORESKIN EXCEPT - General [facility] 11-07-2023 Note HNO ID: [id number] Author: MAYANK READ RN Service: Nursing Author Type: Registered Nurse Type: Nursing Progress Note Filed: 11/07/2023 09:25 Note Text: Paged primary team of low BP. [facility] 11-06-2023 Note HNO ID: [id number] Author: ALEXANDRA CHAIREZ MD Service: General Surgery Author Type: Resident Type: Progress Notes Filed: 11/06/2023 12:15 Note Text: GENERAL SURGERY PROGRESS NOTE ASSESSMENT AND PLAN: Johnny Devine is a 33 year old male non-verbal, developmental delay, who is now s/p dx lap for SBO, sigmoid volvulus was found. Now scheduled for OR with urology today for paraphimosis reduction after haskins placement. - Patient had reported seizure like activity on 11/01. Unclear the etiology, possible lorazepam withdrawal. Plan: - Appreciate neurology recommendations, Continue lorazepam 2mg TID and VPA TID, please make sure there is no skipped doses - MRI brain - Continue purred diet - Dispo: RNF, plan to discharge back to facility when cleared by neurology Alexandra Chairez MD General Surgery Resident Екатерина(Jacob No): [id number] Grundfest(Boy Alcaraz Petro): [id number] After 6PM + Weekends: [id number] INTERVAL EVENTS / PERTINENT REVIEW OF SYSTEMS: Had two seizures yesterday evening Oral scheduled lorazepam and VPA has not tess given Abdomen soft OBJECTIVE: Intake/Output Summary (Last 24 hours) at 11/06/2023 1210 Last data filed at 11/06/2023 1041 Gross per 24 hour Intake 120 ml Output 400 ml Net -280 ml PHYSICAL EXAM: 11/06/23 0249 11/06/23 0613 11/06/23 0924 11/06/23 0953 BP: 136/95 147/83 155/109 139/96 Pulse: (!) 55 (!) 54 78 Resp: 18 18 16 Temp: 36.6 ?C (97.9 ?F) 36.9 ?C (98.4 ?F) 36.2 ?C (97.2 ?F) TempSrc: Oral Oral Axillary SpO2: 92% 94% (!) 80% Weight: Height: General: no acute distress Neuro: moves all extremities with no apparent weakness Heart: RRR Lungs: non-labored breathing on RA Abd: soft, non distended, non tender, incision C/DI DATA: Laboratory: CBC, Coags, BMP, Mg, Phos Recent Labs 11/05/23 0419 11/05/23 0418 11/04/23 0826 WBC 7.54 -- 9.36 HB 9.7* -- 10.5* HCT 30.8* -- 33.4* PLT 205 -- 242 NA -- 142 145* K -- 4.2 3.6* CHLOR -- 112* 112* CO2 -- 24 BUN -- 5* 4* CREAT -- 0.64* 0.70* GLUC -- 96 79 CA -- 7.6* 7.7* MG -- 2.0 2.0 P -- 3.1 2.6* Liver Function, Amylase, AND Lipase LDA: Lines, Drains, and Airways Line Duration Peripheral 10/31/23 1632 Right Antecubital 20 Gauge 5 days Drain Duration External Collection Device 11/03/23 0629 3 days SURGERY/PROCEDURE: Procedure(s) and Anesthesia Type: * DORSAL SLIT FORESKIN EXCEPT - General [facility] 11-06-2023 Note HNO ID: [id number] Author: BERNARDA SUE MD Service: Neurology General Author Type: Resident Type: Plan of Care Filed: 11/06/2023 00:35 Note Text: SERVICE DATE: 11/06/2023 SERVICE TIME: 12:26 AM Paged by primary team regarding concern for clinical seizure around 12:00 with 'whole body shaking' with hypertension 170/100 during with VERONICA, no desaturation, and quick return to baseline - per resident who saw the end of the event. In retrospect noting another event earlier this evening ~9 pm with similar semiology and duration. Called EEG and confirmed patient had two clinical seizures at 20:50 lasting 1 min 15s with leftward head deviationg --> generalization and another at 23:54 lasting 1 min 20s. Per OCT, patient does not have home ordered medications, which are SCHEDULED ativan 2 mg TID (currently only prn) and oral Depakote 500 mg BID -which patient missed several doses of, last administration ~18:00 11/04. Per primary, some concern for poor oral intake/dysphagia and obtaining swallow evaluation during daytime. Recommendations: -IV VPA 500 mg STAT given many missed doses, level likely lower than last obtained on 11/03 at 49 -Transition VPA from PO to IV at total daily dose of 1000 mg divided into 3 doses at q8 hrs given concern for swallowing issues- IV Valproic acid 325 mg / 325mg /350 mg -Start SCHEDULED ativan at 2mg IV TID -Continue EEG monitoring -Please ensure all home anti-seizure medications are given regularly and on time- these medications should not be held. Discussed this with primary team via phone who will relay to day team. -Will BEM check patient throughout the night -Neurology consults will continue to follow patient tomorrow SIGNATURE: Bernarda Sue MD PATIENT NAME: Johnny Devine DATE: November 06, 2023 TIME: 12:26 AM [facility] 11-05-2023 Note HNO ID: [id number] Author: LEEANN TELLES MD Service: General Surgery Author Type: Resident Type: Plan of Care Filed: 11/06/2023 00:28 Note Text: GENERAL SURGERY Plan of Care PATIENT NAME: Johnny Devine AGE: [age] year old Sex:male ASSESSMENT AND PLAN: See Progress Note from today for comprehensive assessment and plan 9:15PM: Paged regarding patient having 20 second episode of seizure-like activity, flailing all 4 extremities. -When arrived to room patient appears to have returned to his baseline and is asymptomatic at this time. No postictal state and able to track movements. Patient nonverbal and unable to communicate any concerns regarding episode. Currently has BEM in place -Nursing states patient missed two doses of ativan today due to poor PO tolerance of all medications -Converted ativan PO to IV Ativan and Recommend nurse page LYNNETTE and record patient's activity if able if similar activity occurs tonight/in the future 11:55PM: Paged about another 60 second seizure with some brief central cyanosis and hypertensive to 170/100 briefly. -Discussion with Neuro and Review of BEM confirmed 60 second seizure at 9:15PM and another 90 episode seizure around midnight. -Neuro recommendation conversion valproate to IV with extra one time dose of 500 tonight given low blood levels. Scheduled IV ativan. -Emphasized to nursing importance of taking psych/seizure medications Brother contacted and informed of change but now stable patient condition OBJECTIVE: BP 175/65 Pulse 74 Temp 36.5 ?C (97.7 ?F) (Oral) Resp 16 Ht 172.7 cm (5' 8 ) Wt 96.6 kg (212 lb 15.4 oz) SpO2 98% BMI 32.38 kg/m? PHYSICAL EXAM: GENERAL: Alert and oriented, no acute distress, cooperative. LUNGS: No increased work of breathing on RA, lungs are clear and equal bilaterally, diminished. CARDIAC: Regular rate. ABDOMEN: Soft, nontender as appropriate, non-distended Leeann Telles MD PGY1 [facility] 11-05-2023 Note HNO ID: [id number] Author: JUAQUIN KRISHNAMURTHY, MIRIAM Service: Nursing Author Type: Registered Nurse Type: Progress Notes Filed: 11/06/2023 00:09 Note Text: Patient had seizure of around 30 seconds with all 4 limbs flailing out. Amet activated and Primary came to bedside and adjusted PO meds to IV. Patient is currently unable to take PO due to drowsy and not following commands. 0000 Patient had another seizure with some violent shaking a more stiff posture lasting about 20-30 seconds again. Primary called to bedside, Valium ordered at this time. [facility] 11-05-2023 Note HNO ID: [id number] Author: HERMAN SALOMON RN Service: Care Management Author Type: Registered Nurse Type: Care Mgt Progress Note Filed: 11/05/2023 11:21 Note Text: CARE MANAGEMENT PROGRESS NOTE SERVICE DATE: 11/05/2023 SERVICE TIME: 11:20 AM LOS: 8 days [place] Explained: [place] Given: No Reason Not Given: No placements necessary Anticipated # of Days Until Discharge: 4 Needs Prior to Discharge: Needs Prior to Discharge: To Be Determined Post-Acute Discharge Plan: Patient from [facility] Plan is to return at discharge. pigment making supervisor is Magi [phone]. Per Magi, she will provide transport at discharge. Magi is requesting an abdominal binder at discharge due to patient's history of self-injurious behavior. 33 year old male POD #7 diagnostic laparoscopy. Patient is non-verbal, developmental delay and lives in alf. No skilled needs anticipated. SIGNATURE: Herman Salomon RN PATIENT NAME: Johnny Devine DATE: November 05, 2023 TIME: 11:19 AM PAGER/CONTACT #: [phone] [facility] 11-05-2023 Note HNO ID: [id number] Author: CONNIE CAICEDO MD Service: Neurology General Author Type: Resident Type: Progress Notes Filed: 11/05/2023 17:50 Note Text: NEUROLOGY CONSULT PROGRESS NOTE SERVICE DATE: 11/05/2023 SERVICE TIME: 10:30 am Current Attending Provider: Samuel Robin* Subjective Interval History: Today, Johnny is not changed. Still appears to be very drowsy/sedated. Objective Physical Examination: Neurological: When patient was seen to day he was sleeping and was difficult to arouse. Did not open his eyes to verbal stimulation however moved his head towards me when I was calling his name. Did look like he was attempting to open his eyes to sternal rub. Left pupil was reactive, right was sluggish. Remainder of the neuro exam was difficult to complete given his drowsiness. New Labs: WBC (k/uL) Date Value 11/05/2023 7.54 11/04/2023 9.36 11/03/2023 7.99 RBC (m/uL) Date Value 11/05/2023 3.66 11/04/2023 3.97 11/03/2023 3.55 Platelet Count (k/uL) Date Value 11/05/2023 205 11/04/2023 242 11/03/2023 208 BUN (mg/dL) Date Value 11/05/2023 5 11/04/2023 4 11/03/2023 5 Creatinine (mg/dL) Date Value 11/05/2023 0.64 11/04/2023 0.70 11/03/2023 0.68 CBC, Coags, BMP, Mg, Phos Recent Labs 11/05/23 0418 11/04/23 0826 11/03/23 0701 NA 142 145* 145* K 4.2 3.6* 3.4* CHLOR 112* 112* 112* CO2 23 24 22 GLUC 96 79 85 CA 7.6* 7.7* 7.7* MG 2.0 2.0 2.2 P 3.1 2.6* 2.5* Liver Function, Amylase, AND Lipase BEM Reading: Most recent preliminary reading for the bedside EEG was recorded from 0434 on 11/04/23 until 0434 on 11/05/23 is suggestive of bilateral cortical dysfunction maximum in the left hemisphere. There is also a moderate diffuse encephalopathy. No definite epileptiform discharges or EEG seizures were seen during this recording. DATA: Diagnostic tests reviewed for today's visit: Most recent labs and imaging results. EEG Impression/Recommendations Johnny Devine is a 33 year old male with PMHx autism spectrum disorder (non-verbal at baseline), bipolar disorder, OCD , hypothyroidism, ?seizure disorder (VPA 500 mg BID, lorazepam 2 mg TID) admitted 10/27 with SBO now s/p ex-lap on 10/28 which identified sigmoid volvulus which was reduced. Course c/p paraphimosis requiring reduction and dorsal slit in OR with urology on 10/29. Additionally, on 10/30 and 11/01 patient developed episodes concerning for seizure. Neurology is consulted for assistance with evaluation and management. This morning neuro exam appears unchanged/slightly worse. EEG showed resolution of sharp waves seen on previous BEMs, likely due to the dose increase of the Ativan. It is important at this point to obtain collateral information from family about baseline functioning, as well as an MRI. Recommendations: - MRI w/wo IV contrast - Obtain collateral information about baseline functioning from family Discussed with staff. SIGNATURE: Bruce Resendiz MD PATIENT NAME: Johnny Devine DATE: November 05, 2023 TIME: 10:26 AM Addendum: Spoke with patient's guardian, Cate. She has been present at bedside for much of the day today. She says that patient is very close to his baseline in terms of cognition, alertness, and overall function, although he is slightly sleepier than usual. Given this information, no indication for MRI brain and no further neurological evaluation needed. Plan discussed with staff, Dr. Almanzar. Connie Caicedo MD 5:49 PM [facility] 11-05-2023 Note HNO ID: [id number] Author: ALEXANDRA CHAIREZ MD Service: General Surgery Author Type: Resident Type: Progress Notes Filed: 11/05/2023 07:31 Note Text: GENERAL SURGERY PROGRESS NOTE ASSESSMENT AND PLAN: Johnny Devine is a 33 year old male non-verbal, developmental delay, who is now s/p dx lap for SBO, sigmoid volvulus was found. Now scheduled for OR with urology today for paraphimosis reduction after haskins placement. - Patient had reported seizure like activity on 11/01. Unclear the etiology, possible lorazepam withdrawal. Plan: Neuro: continue lorazepam 2mg TID, appreciate neurology recommendations, plan to re-assess EEG continuation today CV: RRR Pulm: IS, UOOB GI: purred diet, HLIV, antiemetics prn : s/p OR with urology , appreciate Recs (below) - Recommend applying vaseline PRN to glans - Can use trospium 20mg BID PRN for bladder spasms from catheter - Overall haskins plan and care per primary team - Will arrange outpatient urology follow up Heme: daily labs VTE ppx: SCDs, SQH Dispo: RNF, plan to discharge back to facility when cleared by neurology Alexandra Chairez MD General Surgery Resident Екатерина(Jacob No): [phone] Grundfest(Kieran, Benabilaa, Misti): [phone] After 6PM + Weekends: [phone] INTERVAL EVENTS / PERTINENT REVIEW OF SYSTEMS: No new reported seizures No other issues Sleeping the morning Had one BM yesterday OBJECTIVE: Intake/Output Summary (Last 24 hours) at 11/05/2023 0728 Last data filed at 11/05/2023 0600 Gross per 24 hour Intake 3422 ml Output 3100 ml Net 322 ml PHYSICAL EXAM: 11/04/23 2132 11/05/23 0134 11/05/23 0136 11/05/23 0645 BP: 82/57 91/50 107/64 Pulse: 106 87 (!) 42 (!) 45 Resp: Temp: 36.7 ?C (98.1 ?F) 36.3 ?C (97.3 ?F) TempSrc: Axillary Axillary SpO2: 99% 95% 95% 97% Weight: Height: General: no acute distress Neuro: moves all extremities with no apparent weakness Heart: RRR Lungs: non-labored breathing on RA Abd: soft, non distended, non tender, incision C/DI DATA: Laboratory: CBC, Coags, BMP, Mg, Phos Recent Labs 11/05/23 0419 11/05/23 0418 11/04/23 0826 11/03/23 0701 WBC 7.54 -- 9.36 7.99 HB 9.7* -- 10.5* 9.4* HCT 30.8* -- 33.4* 29.9* PLT 205 -- 242 208 NA -- 142 145* 145* K -- 4.2 3.6* 3.4* CHLOR -- 112* 112* 112* CO2 -- BUN -- 5* 4* 5* CREAT -- 0.64* 0.70* 0.68* GLUC -- 96 79 85 CA -- 7.6* 7.7* 7.7* MG -- 2.0 2.0 2.2 P -- 3.1 2.6* 2.5* Liver Function, Amylase, AND Lipase LDA: Lines, Drains, and Airways Line Duration Peripheral 10/31/23 1632 Right Antecubital 20 Gauge 4 days Drain Duration External Collection Device 11/03/23 0629 2 days SURGERY/PROCEDURE: Procedure(s) and Anesthesia Type: * DORSAL SLIT FORESKIN EXCEPT - General [facility] 11-04-2023 Note HNO ID: [id number] Author: ALEXANDRA CHAIREZ MD Service: General Surgery Author Type: Resident Type: Progress Notes Filed: 11/04/2023 09:26 Note Text: GENERAL SURGERY PROGRESS NOTE ASSESSMENT AND PLAN: Johnny Devine is a 33 year old male non-verbal, developmental delay, who is now s/p dx lap for SBO, sigmoid volvulus was found. Now scheduled for OR with urology today for paraphimosis reduction after haskins placement. - Patient had reported seizure like activity on 11/01. Unclear the etiology, possible withdrawal from lorazepam. Plan: Neuro: continue lorazepam TID per neurology(clarified with [facility] and patient has been getting scheduled lorazepam 2mg TID), f/u VPA levels, appreciate neurology recommendations CV: RRR Pulm: IS, UOOB GI: purred diet, HLIV, antiemetics prn : s/p OR with urology , appreciate Recs (below) - Recommend applying vaseline PRN to glans - Can use trospium 20mg BID PRN for bladder spasms from catheter - Overall haskins plan and care per primary team - Will arrange outpatient urology follow up Heme: daily labs VTE ppx: SCDs, SQH Dispo: RNF, pending diet and dispo planning Aleaxndra Chairez MD General Surgery Resident Екатерина(Jacob No): [phone] Grundfest(Boy Alcaraz Petro): [phone] After 6PM + Weekends: [phone] INTERVAL EVENTS / PERTINENT REVIEW OF SYSTEMS: CT head normal yesterday No new reported seizures No other issues Sleeping the morning OBJECTIVE: Intake/Output Summary (Last 24 hours) at 11/04/2023 0904 Last data filed at 11/04/2023 0547 Gross per 24 hour Intake 200 ml Output 1500 ml Net -1300 ml PHYSICAL EXAM: 11/03/23 2123 11/04/23 0141 11/04/23 0524 11/04/23 0850 BP: 126/81 106/64 118/76 139/83 Pulse: 62 (!) 50 (!) 50 (!) 50 Resp: 18 18 18 16 Temp: 36.3 ?C (97.4 ?F) 37 ?C (98.6 ?F) 36.6 ?C (97.8 ?F) 36.8 ?C (98.2 ?F) TempSrc: Oral Axillary Oral Axillary SpO2: 98% 96% 95% 97% Weight: Height: General: no acute distress Neuro: moves all extremities with no apparent weakness Heart: RRR Lungs: non-labored breathing on RA Abd: soft, minimally distended, non tender, incision C/DI DATA: Laboratory: CBC, Coags, BMP, Mg, Phos Recent Labs 11/03/23 0701 11/02/23 1523 11/02/23 1135 WBC 7.99 -- 7.98 HB 9.4* -- 11.2* HCT 29.9* -- 36.5* PLT 208 -- 199 NA 145* 141 -- K 3.4* 3.5* -- CHLOR 112* 109* -- CO2 22 24 -- BUN 5* 7* -- CREAT 0.68* 0.66* -- GLUC 85 109* -- CA 7.7* 7.7* -- MG 2.2 -- 2.3 P 2.5* 2.6* -- Liver Function, Amylase, AND Lipase LDA: Lines, Drains, and Airways Line Duration Peripheral 10/31/23 1632 Right Antecubital 20 Gauge 3 days Drain Duration External Collection Device 11/03/23 0629 1 day SURGERY/PROCEDURE: Procedure(s) and Anesthesia Type: * DORSAL SLIT FORESKIN EXCEPT - General [facility] 11-03-2023 Note HNO ID: [id number] Author: ZAIRA ROBERT MD Service: General Surgery Author Type: Resident Type: Progress Notes Filed: 11/03/2023 10:30 Note Text: GENERAL SURGERY PROGRESS NOTE ASSESSMENT AND PLAN: Johnny Devine is a 33 year old male non-verbal, developmental delay, who is now s/p dx lap for SBO, sigmoid volvulus was found. Now scheduled for OR with urology today for paraphimosis reduction after haskins placement. - Patient had seizure like activity overnight, given ativan. Plan: Neuro: multimodal pain control, Neurology consult CV: RRR Pulm: IS, UOOB GI: CLD, mIVF, antiemetics prn : s/p OR with urology , appreciate Recs (below) - Recommend applying vaseline PRN to glans - Can use trospium 20mg BID PRN for bladder spasms from catheter - Overall haskins plan and care per primary team - Will arrange outpatient urology follow up Heme: daily labs: CBC, BMP, Lactate, Pro-Richard and CRP VTE ppx: SCDs, SQH Dispo: RNF, pending diet and dispo planning Zaira Robert MD General Surgery (Res) November 03, 2023, 10:29 AM P: [phone] INTERVAL EVENTS / PERTINENT REVIEW OF SYSTEMS: Patient somnolent this morning Not endorsing pain Adequate UOP OBJECTIVE: Intake/Output Summary (Last 24 hours) at 11/03/2023 1027 Last data filed at 11/03/2023 0600 Gross per 24 hour Intake 400 ml Output 1600 ml Net -1200 ml PHYSICAL EXAM: 11/02/23 2200 11/03/23 0147 11/03/23 0545 11/03/23 0937 BP: 153/74 116/80 120/81 136/100 Pulse: (!) 56 (!) 58 (!) 46 82 Resp: 18 17 Temp: 36.9 ?C (98.4 ?F) 36.6 ?C (97.9 ?F) 36.7 ?C (98.1 ?F) TempSrc: Axillary Oral Oral SpO2: 98% 97% 97% 95% Weight: Height: General: no acute distress Neuro: moves all extremities with no apparent weakness Heart: RRR Lungs: non-labored breathing on RA Abd: soft, minimally distended, non tender, incision C/DI DATA: Laboratory: CBC, Coags, BMP, Mg, Phos Recent Labs 11/03/23 0701 11/02/23 1523 11/02/23 1135 11/01/23 0640 WBC 7.99 -- 7.98 7.65 HB 9.4* -- 11.2* 9.0* HCT 29.9* -- 36.5* 28.6* PLT 208 -- 199 148* NA 145* 141 -- 146* K 3.4* 3.5* -- 3.9 CHLOR 112* 109* -- 114* CO2 22 24 -- 22 BUN 5* 7* -- 9 CREAT 0.68* 0.66* -- 0.74 GLUC 85 109* -- 98 CA 7.7* 7.7* -- 7.9* MG 2.2 -- 2.3 2.4* P 2.5* 2.6* -- 2.3* Liver Function, Amylase, AND Lipase Recent Labs 10/31/23 1856 TPROT 5.6* ALB 3.1* ALT 6* AST 13* ALKPHOS 31* TBILI <0.2* LDA: Lines, Drains, and Airways Line Duration Peripheral 10/31/23 1632 Right Antecubital 20 Gauge 2 days Drain Duration External Collection Device 11/03/23 0629 <1 day SURGERY/PROCEDURE: Procedure(s) and Anesthesia Type: * DORSAL SLIT FORESKIN EXCEPT - General [facility] 11-03-2023 Note HNO ID: [id number] Author: LYLE TRINIDAD RN Service: ? Author Type: Registered Nurse Type: Progress Notes Filed: 11/03/2023 22:32 Note Text: This film writer was called by another nurse that pt had a witnessed 20 seconds of seizure episode. AMET called and team notified and orders given. [facility] 11-02-2023 Note HNO ID: [id number] Author: LEEANN TELLES MD Service: General Surgery Author Type: Resident Type: Plan of Care Filed: 11/02/2023 22:01 Note Text: GENERAL SURGERY Plan of Care PATIENT NAME: Johnny Devine AGE: [age] year old Sex:male ASSESSMENT AND PLAN: See Progress Note from today for comprehensive assessment and plan Paged regarding patient having 20 second episode of seizure-like activity, flailing all 4 extremities. When arrived to room patient appears to have returned to his baseline and is asymptomatic at this time. Patient nonverbal and unable to communicate any concerns regarding episode Ordered PRN lorazepam, requested pharmacy to convert available meds to IV (only valproate convertible), consult neurology. Recommend nurse page LYNNETTE and record patient's activity if able if similar activity occurs tonight/in the future OBJECTIVE: BP 118/72 Pulse 64 Temp 36.6 ?C (97.9 ?F) (Axillary) Resp 20 Ht 172.7 cm (5' 8 ) Wt 93.2 kg (205 lb 7.5 oz) SpO2 100% BMI 31.24 kg/m? PHYSICAL EXAM: GENERAL: Alert and oriented, no acute distress, cooperative. LUNGS: No increased work of breathing on RA, lungs are clear and equal bilaterally, diminished. CARDIAC: Regular rate. ABDOMEN: Soft, nontender as appropriate, non-distended Leeann Telles MD PGY1 [facility] 11-02-2023 Note HNO ID: [id number] Author: HERMAN SALOMON RN Service: Care Management Author Type: Registered Nurse Type: Care Mgt Progress Note Filed: 11/02/2023 11:43 Note Text: CARE MANAGEMENT WEEKEND PLANNING NOTE DISCHARGE OR POSSIBLE DISCHARGE Date/Time: TBD Disposition: Half-Way Transport: Car /Magi Other Concerns: Patient from [facility]. Plan is to return at discharge. pigment making supervisor is Magi [phone]. Per Magi, she will provide transport at discharge. She will need to be contacted if patient ready to discharge over the weekend. Magi is requesting an abdominal binder at discharge due to patient's history of self-injurious behavior. 33 year old male POD #4 diagnostic laparoscopy. Patient is non-verbal, developmental delay and lives in alf. Weekend Trim Sawyer Pager #: Please see Treatment Team for Care Management Weekend/Holiday coverage. SIGNATURE: Herman Salomon RN PATIENT NAME: Johnny Devine DATE: November 02, 2023 TIME: 11:42 AM PAGER/CONTACT #: [phone] [facility] 11-02-2023 Note HNO ID: [id number] Author: FRANCK MAGDALENO MD Service: General Surgery Author Type: Resident Type: Progress Notes Filed: 11/02/2023 10:03 Note Text: GENERAL SURGERY PROGRESS NOTE ASSESSMENT AND PLAN: Johnny Devine is a 33 year old male non-verbal, developmental delay, who is now s/p dx lap for SBO, sigmoid volvulus was found. Now scheduled for OR with urology today for paraphimosis reduction after haskins placement. Plan: Neuro: multimodal pain control CV: RRR Pulm: IS, UOOB GI: CLD : s/p OR with urology , appreciate Recs (below); [facility], f/u TOV - Recommend applying vaseline PRN to glans - Can use trospium 20mg BID PRN for bladder spasms from catheter - Overall haskins plan and care per primary team - Will arrange outpatient urology follow up Heme: daily labs: CBC, BMP, Lactate, Pro-Richard and CRP Meds: Continue home clomipramine, levothyroxine, lithium carbonate, quetiapine, respiridone, sertraline; Changed medication: metoprolol 5mg q6 VTE ppx: SCDs, SQH Dispo: RNF, dispo pending diet and dispo planning Franck Andrwes MD Acute Care Surgery Resident PAGER [phone] INTERVAL EVENTS / PERTINENT REVIEW OF SYSTEMS: No acute events overnight. Distended abd in AM Passing gas OBJECTIVE: Intake/Output Summary (Last 24 hours) at 11/02/2023 1000 Last data filed at 11/02/2023 0659 Gross per 24 hour Intake 1025 ml Output 602 ml Net 423 ml PHYSICAL EXAM: 11/01/23 2112 11/02/23 0000 11/02/23 0617 11/02/23 0950 BP: 137/76 122/55 Pulse: (!) 48 (!) 156 Resp: 16 17 Temp: 36.5 ?C (97.7 ?F) 36.9 ?C (98.4 ?F) 36.8 ?C (98.2 ?F) TempSrc: Axillary Axillary Axillary SpO2: 98% 98% 99% Weight: Height: General: no acute distress Neuro: moves all extremities with no apparent weakness Heart: RRR Lungs: non-labored breathing on 2L NC Abd: soft, lessdistended, non tender DATA: Laboratory: CBC, Coags, BMP, Mg, Phos Recent Labs 11/01/23 0640 10/31/23 1856 10/31/23 1625 10/31/23 0811 WBC 7.65 -- 10.06 9.59 HB 9.0* -- 9.1* 9.4* HCT 28.6* -- 28.6* 30.2* PLT 148* -- 180 144* NA 146* 147* -- 148* K 3.9 4.0 -- 3.9 CHLOR 114* 115* -- 115* CO2 22 26 -- 23 BUN 9 9 -- 8* CREAT 0.74 0.73 -- 0.72* GLUC 98 103* -- 93 CA 7.9* 7.4* -- 7.8* MG 2.4* -- 2.2 2.1 P 2.3* -- 1.4* 2.1* Liver Function, Amylase, AND Lipase Recent Labs 10/31/23 1856 TPROT 5.6* ALB 3.1* ALT 6* AST 13* ALKPHOS 31* TBILI <0.2* LDA: Lines, Drains, and Airways Line Duration Peripheral 10/31/23 1632 Right Antecubital 20 Gauge 1 day SURGERY/PROCEDURE: Procedure(s) and Anesthesia Type: * DORSAL SLIT FORESKIN EXCEPT - General [facility] 11-01-2023 Note HNO ID: [id number] Author: ANA LUISA FARR MD Service: General Surgery Author Type: Resident Type: Progress Notes Filed: 11/02/2023 05:25 Note Text: GENERAL SURGERY PROGRESS NOTE ASSESSMENT AND PLAN: Johnny Devine is a 33 year old male non-verbal, developmental delay, who is now s/p dx lap for SBO, sigmoid volvulus was found. Now scheduled for OR with urology today for paraphimosis reduction after haskins placement. Plan: Neuro: multimodal pain control CV: RRR Pulm: IS, UOOB GI: NPO : s/p OR with urology , appreciate Recs (below); haskins out at [facility], f/u TOV - Recommend applying vaseline PRN to glans - Can use trospium 20mg BID PRN for bladder spasms from catheter - Overall haskins plan and care per primary team - Will arrange outpatient urology follow up Heme: daily labs: CBC, BMP, Lactate, Pro-Richard and CRP Meds: Continue home clomipramine, levothyroxine, lithium carbonate, quetiapine, respiridone, sertraline; Changed medication: metoprolol 5mg q6 VTE ppx: SCDs, SQH Dispo: RNF, dispo pending diet and dispo planning Ana Luisa Farr MD Acute Care Surgery Resident PAGER [phone] INTERVAL EVENTS / PERTINENT REVIEW OF SYSTEMS: No acute events overnight. Distended abd in AM Passing gas OBJECTIVE: Intake/Output Summary (Last 24 hours) at 11/02/2023 0524 Last data filed at 11/02/2023 0212 Gross per 24 hour Intake 1025 ml Output 1202 ml Net -177 ml PHYSICAL EXAM: 11/01/23 1427 11/01/23 2100 11/01/23 2112 11/02/23 0000 BP: 134/74 117/78 Pulse: (!) 57 Resp: Temp: 36.7 ?C (98.1 ?F) 36.5 ?C (97.7 ?F) TempSrc: Oral Axillary SpO2: 100% 98% Weight: Height: General: no acute distress Neuro: moves all extremities with no apparent weakness Heart: RRR Lungs: non-labored breathing on 2L NC Abd: soft, distended, non tender DATA: Laboratory: CBC, Coags, BMP, Mg, Phos Recent Labs 11/01/23 0640 10/31/23 1856 10/31/23 1625 10/31/23 0811 WBC 7.65 -- 10.06 9.59 HB 9.0* -- 9.1* 9.4* HCT 28.6* -- 28.6* 30.2* PLT 148* -- 180 144* NA 146* 147* -- 148* K 3.9 4.0 -- 3.9 CHLOR 114* 115* -- 115* CO2 22 26 -- 23 BUN 9 9 -- 8* CREAT 0.74 0.73 -- 0.72* GLUC 98 103* -- 93 CA 7.9* 7.4* -- 7.8* MG 2.4* -- 2.2 2.1 P 2.3* -- 1.4* 2.1* Liver Function, Amylase, AND Lipase Recent Labs 10/31/23 185 TPROT 5.6* ALB 3.1* ALT 6* AST 13* ALKPHOS 31* TBILI <0.2* LDA: Lines, Drains, and Airways Line Duration Peripheral 10/31/23 1632 Right Antecubital 20 Gauge 1 day SURGERY/PROCEDURE: Procedure(s) and Anesthesia Type: * DORSAL SLIT FORESKIN EXCEPT - General [facility] 10-31-2023 Note HNO ID: [id number] Author: ANA LUISA FARR MD Service: General Surgery Author Type: Resident Type: Progress Notes Filed: 10/31/2023 11:30 Note Text: GENERAL SURGERY PROGRESS NOTE ASSESSMENT AND PLAN: Johnny Devine is a 33 year old male non-verbal, developmental delay, who is now s/p dx lap for SBO, sigmoid volvulus was found. Now scheduled for OR with urology today for paraphimosis reduction after haskins placement. Plan: Neuro: multimodal pain control CV: RRR Pulm: IS, UOOB GI: puree foods per home diet : s/p OR with urology , appreciate Recs - Recommend applying vaseline PRN to glans - Can use trospium 20mg BID PRN for bladder spasms from catheter - Overall haskins plan and care per primary team - Will arrange outpatient urology follow up Heme: daily labs: CBC, BMP, Lactate, Pro-Richard and CRP Meds: Continue home clomipramine, levothyroxine, lithium carbonate, quetiapine, respiridone, sertraline; Changed medication: metoprolol 5mg q6 VTE ppx: SCDs, SQH Dispo: RNF, dispo pending diet and dispo planning Ana Luisa Farr MD Acute Care Surgery Resident PAGER [phone] INTERVAL EVENTS / PERTINENT REVIEW OF SYSTEMS: No acute events overnight. Pain well controlled. BM overnight Tolerating clears OBJECTIVE: Intake/Output Summary (Last 24 hours) at 10/31/2023 1122 Last data filed at 10/31/2023 1005 Gross per 24 hour Intake 389 ml Output 3350 ml Net -2961 ml PHYSICAL EXAM: 10/31/23 0143 10/31/23 0528 10/31/23 0837 10/31/23 0856 BP: 122/80 118/79 127/73 Pulse: 73 75 72 (!) 57 Resp: 18 18 20 Temp: 37.4 ?C (99.3 ?F) 37.4 ?C (99.3 ?F) 37.6 ?C (99.7 ?F) TempSrc: Axillary Axillary Oral SpO2: 96% 96% 96% Weight: Height: General: no acute distress Neuro: moves all extremities with no apparent weakness Heart: RRR Lungs: non-labored breathing on 2L NC Abd: soft, non distended, non tender DATA: Laboratory: CBC, Coags, BMP, Mg, Phos Recent Labs 10/31/23 0811 10/30/23 0537 10/29/23 0258 10/29/23 0252 10/28/23 2119 WBC 9.59 11.73* -- 14.09* -- HB 9.4* 9.8* -- 10.5* -- HCT 30.2* 31.1* -- 33.0* -- PLT 144* 138* -- 151 -- INR -- -- -- -- 1.2 APTT -- -- 26.3 -- -- NA 148* 149* -- 144 -- K 3.9 3.6* -- 3.8 -- CHLOR 115* 113* -- 112* -- CO2 23 24 -- 21* -- BUN 8* 9 -- 13 -- CREAT 0.72* 0.69* -- 0.69* -- GLUC 93 98 -- 115* -- CA 7.8* 7.4* -- 7.4* -- MG 2.1 2.0 -- 1.8 -- P 2.1* 2.2* -- 2.3* -- Liver Function, Amylase, AND Lipase LDA: Lines, Drains, and Airways Line Duration Peripheral 10/27/23 External Facility Left Antecubital 4 days Peripheral 10/30/23 0801 Right Antecubital 18 Gauge 1 day Drain Duration Indwelling Urinary Catheter 10/30/23 0811 [facility] Haskins 10 Fr 1 day SURGERY/PROCEDURE: Procedure(s) and Anesthesia Type: * DORSAL SLIT FORESKIN EXCEPT - General [facility] 10-31-2023 Note HNO ID: [id number] Author: HEAVEN CAMACHO MD Service: Urology Author Type: Resident Type: Progress Notes Filed: 10/31/2023 08:48 Note Text: Documentation Query Based on your medical judgment of the clinical indicators outlined below, please clarify the condition: (Please type X next to your response and sign) Clinical Indicators: 10/28: Phosphorus 2.3 10/29: Phosphorus 2.2 Treatment: KPhos 30 mmol IV x1 (10/29), Please clarify the diagnosis associated with the above clinical indicators: x Hypophosphatemia Other, please specify [facility] 10-31-2023 Note HNO ID: [id number] Author: BEATRIZ MEHTA MD Service: General Surgery Author Type: Resident Type: Plan of Care Filed: 10/31/2023 02:39 Note Text: Plan of care Messaged by RN about blood tinged urine in haskins. Patient now POD1 from dorsal slit urologic intervention. Assessed patient and having slight bloody tinged urine output from haskins, with haskins actively draining urine. Patient is HDS, without any new complaints. UOP adequate. Incision site CDI and abd soft non tender. Patient stable at this time with adequate UOP and expected light blood tinge to urine s/p urologic intervention. Will continue to monitor at this time and plan to page urology if haskins becomes more deep red. Beatriz Mehta MD General Surgery Resident General Surgery: [phone] On nights (6 pm to 6 am) and on Weekends/Holidays, please page the on-call pager: [phone] 10/31/23 2:39 AM [facility] 10-31-2023 Note HNO ID: [id number] Author: JUAQUIN KRISHNAMURTHY RN Service: Nursing Author Type: Registered Nurse Type: Progress Notes Filed: 10/31/2023 01:48 Note Text: Messaged Night team Dr. Mehta about haskins drainage turning bloody. Patient is asleep and comfortable [facility] 10-30-2023 Note HNO ID: [id number] Author: JEREMIE JOAQUIN MD Service: ? Author Type: Anesthesiologist Type: Anesthesia Procedure Notes Filed: 10/30/2023 12:00 Note Text: ANESTHESIOLOGY PROCEDURE NOTE PIV General Information Procedure Start Time/Medication Administration: 10/30/2023 8:01 AM Patient Location: OR Staffing Anesthesiologist: Jeremie Joaquin MD Performed by: anesthesiologist Preparation Sterility Preparation: hand hygiene performed prior to procedure, surgical cap used, mask used, skin prep agent completely dried prior to procedure Sterility Technique Not Completely Performed Due to Extreme Emergency: No Site Prep: alcohol Procedure Details Indication: need for IV access Needle Size/Type: 18 gauge angiocath Orientation: Right Location: Antecubital Imaging Guidance Used: Yes Image in Chart: No SIGNATURE: Nilay Zimmer APRN.CUSTOMER SERVICE ASSOCIATE PATIENT NAME: Johnny Devine DATE: October 30, 2023 TIME: 8:11 AM CSN: [id number] [facility] 10-30-2023 Note HNO ID: [id number] Author: JEREMIE JOAQUIN MD Service: ? Author Type: Anesthesiologist Type: Anesthesia Procedure Notes Filed: 10/30/2023 11:59 Note Text: ANESTHESIOLOGY PROCEDURE NOTE Airway General Information Procedure Start Time/Medication Administration: 10/30/2023 7:46 AM Patient location during procedure: OR Timeout Performed Pre-procedure: timeout performed Consent Obtained: Yes Patient identity confirmed: arm band, care head orthopedic team physician and patient Staffing Anesthesiologist: Jeremie Joaquin MD Performed by: SRNA and anesthesiologist Indications and Patient Condition Indications for airway management: anesthesia Preoxygenated: yes anesthesia circuit Patient position: sniffing Method: rapid sequence Cricoid Pressure: No Manual In-Line Stabilization: No Difficult Mask: No Final Airway Details Final airway type: endotracheal airway Final Endotracheal Airway: ETT Cuffed: yes Successful intubation technique: video laryngoscopy Devices used: Gunderson Endotracheal tube insertion site: oral Blade size: #4 ETT size (mm): 7.5 Measured from: teeth Measurement (cm): 22 Placement verified by: capnometry Cormack-Lehane Classification: grade I - full view of glottis Number of attempts at approach: 1 Failed airway: no Unrecognized esophageal intubation: no Airway not difficult Comments Pt with very poor chipped dentition, unchanged after intubation. RSI no signs of gastric contents in oropharynx. SIGNATURE: Nilay Zimmer APRN.CRNA PATIENT NAME: Johnny Devine DATE: October 30, 2023 TIME: 7:58 AM CSN: [id number] [facility] 10-30-2023 Note HNO ID: [id number] Author: FRANCK MAGDALENO MD Service: General Surgery Author Type: Resident Type: Progress Notes Filed: 10/30/2023 08:36 Note Text: GENERAL SURGERY PROGRESS NOTE ASSESSMENT AND PLAN: Johnny Devine is a 33 year old male non-verbal, developmental delay, who is now s/p dx lap for SBO, sigmoid volvulus was found. Now scheduled for OR with urology today for paraphimosis reduction after haskins placement. Plan: Neuro: multimodal pain control CV: RRR Pulm: IS, UOOB GI: NPO, mIVF and keep NGT to LIWS, suppositories; Protonix ID: pre-op abx Heme: daily labs: CBC, BMP, Lactate, Pro-Richard and CRP Endo: MSK/ABD: OR today with urology, blue card, consent, pre-oped Meds: Continue home clomipramine, levothyroxine, lithium carbonate, quetiapine, respiridone, sertraline; Changed medication: metoprolol 5mg q6 VTE ppx: SCDs, SQH Dispo: RNF with jed Andrews MD Acute Care Surgery Resident PAGER [phone] INTERVAL EVENTS / PERTINENT REVIEW OF SYSTEMS: No acute events overnight. Pain well controlled. More tired than usual per family NGT to suction with bilious output OBJECTIVE: Intake/Output Summary (Last 24 hours) at 10/30/2023 0744 Last data filed at 10/30/2023 0527 Gross per 24 hour Intake 3201 ml Output 2840 ml Net 361 ml PHYSICAL EXAM: 10/30/23 0206 10/30/23 0439 10/30/23 0518 10/30/23 0520 BP: 130/83 128/85 140/84 Pulse: 74 77 75 79 Resp: Temp: 37.2 ?C (99 ?F) 36.7 ?C (98.1 ?F) 37.3 ?C (99.1 ?F) TempSrc: Oral SpO2: 94% 95% (!) 85% 93% Weight: Height: General: no acute distress HEENT: NGT in place to LIWS Neuro: moves all extremities with no apparent weakness Heart: RRR Lungs: non-labored breathing on 2L NC Abd: soft, mildly distended, non tender DATA: Laboratory: CBC, Coags, BMP, Mg, Phos Recent Labs 10/30/23 0537 10/29/23 0258 10/29/23 0252 10/28/23 2119 10/28/23 1703 WBC 11.73* -- 14.09* -- 14.46* HB 9.8* -- 10.5* -- 12.0* HCT 31.1* -- 33.0* -- 38.3* PLT 138* -- 151 -- 180 INR -- -- -- 1.2 -- APTT -- 26.3 -- -- -- NA 149* -- 144 -- 137 K 3.6* -- 3.8 -- 3.9 CHLOR 113* -- 112* -- 110* CO2 24 -- 21* -- 15* BUN 9 -- 13 -- 17 CREAT 0.69* -- 0.69* -- 0.72* GLUC 98 -- 115* -- 116* CA 7.4* -- 7.4* -- 7.8* MG 2.0 -- 1.8 -- 1.8 P 2.2* -- 2.3* -- 3.2 Liver Function, Amylase, AND Lipase LDA: Lines, Drains, and Airways Line Duration Peripheral 10/27/23 External Facility Left Antecubital 3 days Drain Duration GI/ Feeding 10/30/23 0230 [facility] 16 Fr <1 day Indwelling Urinary Catheter 10/30/23 0130 [facility] Haskins 8 Fr <1 day SURGERY/PROCEDURE: Procedure(s) and Anesthesia Type: * DORSAL SLIT FORESKIN EXCEPT - General [facility] 10-29-2023 Note HNO ID: [id number] Author: HERMAN SALOMON, MIRIAM Service: Care Management Author Type: Registered Nurse Type: Care Mgt Initial Assessment Filed: 10/31/2023 13:44 Note Text: CARE MANAGEMENT: ASSESSMENT AND DISCHARGE PLAN SERVICE DATE: October 29, 2023 SERVICE TIME: 4:00 PM PCP: No primary care provider on file. Primary Contact: Extended Emergency Contact Information Primary Emergency Contact: Delbert Devine Mobile Relation: Brother Admission Status: Inpatient Insurance Provider: MEDICARE A AND B Discharge Planning requested by: Per Department Practice Potential Transition Plans Half-Way/Supervised Living Advance Directives Current Advance Directive: Other Document: See Comment (Legal guardian) In Chart: Yes Up To Date and Valid: Yes Current Living Arrangements and Support Lives with: Other person(s) [facility] Type of Residence: Half-Way Care Facility Name: [facility] Support: Home care staff, Family members How do you manage to accomplish the following: Independent: Ambulation Dependent: Bathe/Shower;Dress;Meals/Meal Prep;Going to the bathroom;Medication Management;Transportation to appointments/community Current Services/Equipment Current Post-Acute Service(s): None [place] of Choice Explained: [place] of [place] Given: No Reason Not Given: No placements necessary Are you interested in bedside delivery of your medications? No Discharge Planning Participant(s): Other person(s);Guardian Name/Relationship: Magi/Hand Embroiderer Patient/Family Comments: Caregiver Assessment: Caregiver is ready, willing and able to meet the patient's needs as recommended by the inter-professional team: Yes Name of Caregiver: [facility] Transport at Discharge: Transportation Arrangements: Car Destination: Home Needs Prior to Discharge: Needs Prior to Discharge: To Be Determined Post-Acute Discharge Plan: 33 year old male POD #0 diagnostic laparoscopy. Patient is non-verbal, developmental delay and lives in alf. CM met with patient's legal guardian Delbert and group contract analyst Magi at bedside. Plan is to return to alf at discharge. Per Magi [phone] ext. [phone], she will provide transport. Magi is requesting an abdominal binder at discharge due to patient's history of self-injurious behavior. CM will continue to follow for transitional care needs. SIGNATURE: Herman Salomon RN PATIENT NAME: Johnny Devine DATE: October 29, 2023 TIME: 4:00 PM CONTACT #: [phone] [facility] 10-29-2023 Note HNO ID: [id number] Author: KENZIE MORE APRN.CUSTOMER SERVICE ASSOCIATE Service: ? Author Type: Nurse Skidder Lever Operator Type: Anesthesia Procedure Notes Filed: 10/29/2023 10:18 Note Text: ANESTHESIOLOGY PROCEDURE NOTE Airway General Information Procedure Start Time/Medication Administration: 10/29/2023 10:00 AM Patient location during procedure: OR Timeout Performed Pre-procedure: timeout performed Consent Obtained: Yes Patient identity confirmed: arm band, care head orthopedic team physician and family Staffing CUSTOMER SERVICE ASSOCIATE: Kenzie More APRN.CUSTOMER SERVICE ASSOCIATE Indications and Patient Condition Indications for airway management: anesthesia Preoxygenated: yes anesthesia circuit Method: rapid sequence Difficult Mask: No Final Airway Details Final airway type: endotracheal airway Final Endotracheal Airway: ETT Cuffed: yes Successful intubation technique: video laryngoscopy Devices used: Gunderson Endotracheal tube insertion site: oral Blade: Raj Blade size: #4 ETT size (mm): 7.5 Placement verified by: capnometry Cormack-Lehane Classification: grade I - full view of glottis Number of attempts at approach: 1 Failed airway: no Unrecognized esophageal intubation: no Airway not difficult SIGNATURE: Kenzie More APRN.CUSTOMER SERVICE ASSOCIATE PATIENT NAME: Johnny Devine DATE: October 29, 2023 TIME: 10:17 AM CSN: [id number] [facility] 10-29-2023 Note HNO ID: [id number] Author: ANA LUISA FARR MD Service: General Surgery Author Type: Resident Type: Progress Notes Filed: 10/29/2023 10:02 Note Text: GENERAL SURGERY PROGRESS NOTE ASSESSMENT AND PLAN: Johnny Devine is a 33 year old male non-verbal, developmental delay with no relevant PSH who presents with acute small bowel obstruction. Patient is currently at increased risk of aspiration and nasogastric tube placement with bowel rest is recommended. Nasogastric tube was already placed at the facility. We are opting for an operative management of this patient due to the bowel obstruction in a person who has never had a surgical intervention. Plan: Neuro: multimodal pain control CV: RRR Pulm: IS, UOOB, CXR GI: NPO, mIVF and NGT to LIWS; Protonix ID: pre-op abx Heme: daily labs: CBC, BMP, Lactate, Pro-Richard and CRP Endo: MSK/ABD: OR today for diagnostic laparotomy, blue card, consent, pre-oped Meds: Continue home clomipramine, levothyroxine, lithium carbonate, quetiapine, respiridone, sertraline; Changed medication: metoprolol 5mg q6 VTE ppx: SCDs, SQH Dispo: RNF with jed Farr MD Acute Care Surgery Resident PAGER [phone] INTERVAL EVENTS / PERTINENT REVIEW OF SYSTEMS: No acute events overnight. Pain well controlled. More tired than usual per family RN suctioning mucus out of airway OBJECTIVE: Intake/Output Summary (Last 24 hours) at 10/29/2023 0953 Last data filed at 10/29/2023 0941 Gross per 24 hour Intake 450 ml Output 2400 ml Net -1950 ml PHYSICAL EXAM: 10/29/23 0202 10/29/23 0213 10/29/23 0639 10/29/23 0917 BP: 119/81 116/77 139/85 Pulse: 101 102 83 85 Resp: 14 Temp: 37.2 ?C (99 ?F) 36.4 ?C (97.5 ?F) TempSrc: Axillary Axillary SpO2: 90% 88% 97% 99% Weight: General: no acute distress HEENT: NGT in place to LIWS Neuro: moves all extremities with no apparent weakness Heart: RRR Lungs: non-labored breathing on 2L NC Abd: soft, mildly distended, non tender DATA: Laboratory: CBC, Coags, BMP, Mg, Phos Recent Labs 10/29/23 0258 10/29/23 0252 10/28/23 2119 10/28/23 1703 WBC -- 14.09* -- 14.46* HB -- 10.5* -- 12.0* HCT -- 33.0* -- 38.3* PLT -- 151 -- 180 INR -- -- 1.2 -- APTT 26.3 -- -- -- NA -- 144 -- 137 K -- 3.8 -- 3.9 CHLOR -- 112* -- 110* CO2 -- 21* -- 15* BUN -- 13 -- 17 CREAT -- 0.69* -- 0.72* GLUC -- 115* -- 116* CA -- 7.4* -- 7.8* MG -- 1.8 -- 1.8 P -- 2.3* -- 3.2 Liver Function, Amylase, AND Lipase LDA: Lines, Drains, and Airways Line Duration Peripheral 10/27/23 External Facility Left Antecubital 2 days Peripheral 10/27/23 External Facility Right Antecubital 2 days Drain Duration GI/ Feeding 10/27/23 1400 External Facility Naris 1 day SURGERY/PROCEDURE: Procedure(s) and Anesthesia Type: * EXPLORATORY LAPAROTOMY - General [facility] 10-28-2023 History of Past i llness Narrative Problem Noted Date Diagnosed Date Resolved Date SBO (small bowel obstruction) 10/28/2023 10/31/2023 documented as of this encounter (statuses as of 11/12/2023) [facility]03-10-2024 History of Past illness Narrative* Problem Noted Date Diagnosed Date Resolved Date SBO (small bowel obstruction) 10/28/2023 10/31/2023 documented as of this encounter (statuses as of 11/29/2023) [facility]03-10-2024 History of Past illness Narrative* Problem Noted Date Diagnosed Date Resolved Date SBO (small bowel obstruction) 10/28/2023 10/31/2023 documented as of this encounter (statuses as of 12/04/2023) [facility]03-10-2024 History of Past illness Narrative* Problem Noted Date Diagnosed Date Resolved Date SBO (small bowel obstruction) 10/28/2023 10/31/2023 documented as of this encounter (statuses as of 12/06/2023) [facility]11-27-2023 Hospital Discharge instructions* Discharge Instructions* Yobany Smith PA-C - 07/16/2023 11:49 AM EST Discontinue Lopressor at this time until speaking with physician tomorrow 07/17/2023. guardian will return with any further concerns. All discharge instructions explained to patient andall questions answered. guardian asked to follow-up with the primary physician in the next 2-3 days. Return if any worsening symptoms or concerns. They understand return precautions and discharge instructions. Guardian was in agreement with this plan. * Attachments The following attachments cannot be sent through Care Everywhere. * Bradycardia (Ecuadorean) documented in this [id number] NoteSurgical Attestation: I have reviewed the patient's History and Physical Examination. I have personally seen and evaluated the patient, repeating knox portions. There is no significant interval change. Surgery is still indicated. Yes Consent reviewed and signed by patient/family: Yes Operative site verified and marked: site verified but not marked as not anatomically possible Bobbi OswaldADOLFO 07/16/2023 7:09 AMThe [employer] [id number] Emergency department Note* Leila Cifuentes RN - 07/16/2023 8:01 AM EST Permission treat given from Cate legal guardian [id number] Emergency department Note* Leila Cifuentes RN - 07/16/2023 8:01 AM EST Permission treat given from Cate legal guardian documented in this [id number] Evaluation + Plan note Diagnostic Tests Pending * [place] Level 07/04/23 [facility]11-07-2023 Telephone encounter Note* Telephone Encounter - Shanna Sauceda RN - 06/26/2023 11:14 AM EST Informed Consent for dental surgery & Anesthesia consent obtained and scanned into [employer]. Scheduled for surgery 07/16/2023. [id number] Miscellaneous Notes* Telephone Encounter - Shanna Sauceda RN - 06/26/2023 11:14 AM EST Informed Consent for dental surgery & Anesthesia consent obtained and scanned into [employer]. Scheduled for surgery 07/16/2023. documented in this [id number] NotePresurgical Evaluation (Pre-Admission Testing) Consultation Johnny Devine, [id number] 32 year old Male 06/22/2023 Consult placed to PSE by Dr. Mccurdy due to significant PMH of Patient needs a PSE TELEPHONE ASSESSMENT Total Score: 0 Johnny Devine is scheduled for DENTAL RESTORATIONS on 07/16/2023. [...] RESTORATIONS Bilateral 02/03/2021 Procedure: DENTAL RESTORATIONS; Surgeon: Harpreet Mccurdy DDS; Location: [facility]; Service: Dental ANESTHESIA REVIEW OF [...] rhythm T wave abnor (more content not included)...[facility] [employer] [id number] Evaluation note* PSE Appt H&P - Lacey Wilson MD - 06/22/2023 3:10 PM EDT Presurgical Evaluation (Pre-Admission Testing) Consultation Johnny Devine, [id number] 32 year old Male 06/22/2023 Consult placed to PSE by Dr. Mccurdy due to significant PMH of Patient needs a PSE TELEPHONE ASSESSMENT Total Score: 0 Johnny Devine is scheduled for DENTAL RESTORATIONS on 07/16/2023. [...] RESTORATIONS Bilateral 02/03/2021 Procedure: DENTAL RESTORATIONS; Surgeon: Harpreet Mccurdy DDS; Location: [facility] [place]; Service: Dental ANESTHESIA REVIEW OF SYSTEMS: Eyes/ENT: [...] and educating the patiecounseling and educating the patient/family/caregivernt/family/caregiver - counseling and educating the patient/family/caregiver - ordering medications, tests, or procedures - referring and communicating with other health prompt care rn (when not separately reported) - documenting clinical information in the electronic or other health record - independently interpreting results (not separately reported) and communicating results to the patient/family/caregiver - care coordination (not separately reported). Interviewer signature: Lacey Wilson MD 3:10 PM 06/22/2023 [id number] Miscellaneous Notes* PSE Appt H&P - Lacey Wilson MD - 06/22/2023 3:10 PM EDT Presurgical Evaluation (Pre-Admission Testing) Consultation Johnny Devine, [id number] 32 year old Male 06/22/2023 Consult placed to PSE by Dr. Mccurdy due to significant PMH of Patient needs a PSE TELEPHONE ASSESSMENT Total Score: 0 Johnny Devine is scheduled for DENTAL RESTORATIONS on 07/16/2023. [...] RESTORATIONS Bilateral 02/03/2021 Procedure: DENTAL RESTORATIONS; Surgeon: Harpreet Mccurdy DDS; Location: [facility] [place]; Service: Dental ANESTHESIA REVIEW OF SYSTEMS: Eyes/ENT: [...] and educating the patiecounseling and educating the patient/family/caregivernt/family/caregiver - counseling and educating the patient/family/caregiver - ordering medications, tests, or procedures - referring and communicating with other health prompt care rn (when not separately reported) - documenting clinical information in the electronic or other health record - independently interpreting results (not separately reported) and communicating results to the patient/family/caregiver - care coordination (not separately reported). Interviewer signature: Lacey Wilson MD 3:10 PM 06/22/2023 documented in this [id number] Miscellaneous Notes* Telephone Encounter - Lory Dan [facility] - 05/18/2022 3:18 PM EDT Cate, aunt, was leaving Dr Morales a message: At this time, the family would like to hold off on cataract surgery. Fyi * Telephone Encounter - Grupo Morales MD - 05/18/2022 2:23 PM EDT Called today and yesterday after clinic to discuss. No answer, left msg to call back and leave a message. * Telephone Encounter - [employer] - 05/17/2022 3:31 PM EDT Pt's aunt returning a call to Dr. Morales to discuss eye care for Johnny. Please try to reach her again at [phone] (Cate Castle) [facility] Miscellaneous Notes* Telephone Encounter - [employer] - 05/08/2022 9:01 AM EDT Nurse from [facility] where he resides called for [facility] for his file. Attn: Melanie Pickard [phone]. Surgery schedulers name and # was provided. documented in this [place]09-16-2022 Miscellaneous Notes* Telephone Encounter - Grupo Morales MD - 05/05/2022 9:27 AM EDT Johnny Devine is a 31 year old male calling in with a chief complaint of R eye white cataract. Thispatient was referred to me by my colleague Dr. Sexton who saw him 05/04/22 I called Cate (aunt, guardian) to discuss his case to better understand his self-injurious behaviors and ADLs currently. He currently lives in a alf and has a significant history of self-injurious behaviors including banging his head on things and punching his eyes. She believes cataract tarun result of trauma, and I agree with her. These behaviors still happen on a weekly basis, and whilethere's 12/03 supervision at the alf, he has a lot of private time [...] week. Grupo Morales MD [facility] History of Present illness Narrative* Angel Sexton MD - 05/04/2022 10:37 AM EDT White cataract, right eye R exotropia No [...] and plan as stated above and agree withall of its relevant components. Angel Sexton MD May 04, 2022 10:56 AM documented in [facility] Telephone encounter Note * Telephone Encounter - Jose Miguel Jones - 03/29/2022 1:12 PM EDT Care Gaps Scheduling Contact Details: I did not contact pt. Encounter 07/15/21 indicates pt does not see providers at [facility] at this time. Health Maintenance Due: Medicare AWV / PCP Visit: Due Eye Exam: Not due Foot Exam: Not due Annual Blood Work: Due Mammogram: N/A FIT: Not due [id number] Miscellaneous Notes* Telephone Encounter - Jose Miguel Jones - 03/29/2022 1:12 PM EDT Care Gaps Scheduling Contact Details: I did not contact pt. Encounter 07/15/21 indicates pt does not see providers at [facility] at this time. 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 Other and combined forms of senile cataract [facility] Diagnosis Caries- Primary Unspecified dental caries [...] Moderate intellectual disabilities [facility] Diagnosis Postoperative visit- Primary Other specified aftercare following surgery [facility] Diagnosis Phimosis- Primary Redundant prepuce and phimosis [facility] Diagnosis Screening for genitourinary condition Screening for other and unspecified genitourinary condition [facility] Diagnosis Caries- Primary Unspecified dental caries Pre-op testing- Primary Preoperative examination, unspecified Body mass index (BMI) 31.0-31.9, adult Caries Unspecified dental caries [facility] Diagnosis Sigmoid volvulus (HCC)- Primary Volvulus [facility] Diagnosis Caries- Primary Unspecified dental caries Pre-op testing- Primary Preoperative examination, unspecified Body mass index (BMI) 31.0-31.9, adult Caries Unspecified dental caries [facility]* Diagnosis Caries- Primary Unspecified dental caries documented in this encounter [facility] Narrative No data available for this section [facility] No data available for this section [facility] No data available for this section [facility] Summary Purpose Family History No Family History Records Found No data available for this section No Family History Records FoundNo Family History Records FoundNo Family History Records [...] mcfadden Referred To Contact Anesthesiology Diagnoses Caries Harpreet Mccurdy, DDS [address] [place] [address] [facility] PRE SURGICAL EVAL [address] [place] [id number] Referral ID Status Reason Start Date Expiration Date V isits Requested Visits Authorized [id number] Pending Review 05/25/2023 05/25/2024 1 1 Scheduling Instructions Your surgical team will reach out to you to schedule a preadmission testing appointment. Question Answer Reason for consult? Recommended PSE Risk Score Specialty Diagnoses / Procedures Referred By Johan mcfadden Referred To Contact Radiology Diagnoses Pre-op exam Procedures XR CHEST PA+LAT 2 VIEWS Franc Beyer MD [address] [place] [address] [facility] DIAGNOSTIC RADIOLOGY [address] [id number] Referral ID Status Reason Start Date Expiration Date Visits Re quested Visits Authorized [id number] Closed 06/22/2023 06/21/2024 1 1 Specialty Diagnoses / Procedures Referred By Contac t Referred To Contact Cardiology Diagnoses Bradycardia History of autism Nonverbal Moderate intellectual disability Yobany Smith PA-C [address] [phone] [facility] CARDIOLOGY HV [address] [place] [address] Referral ID Status Reason Start Date Expiration Date V isits Requested Visits Authorized [id number] Pending Review 07/16/2023 07/16/2024 3 3 Scheduling Instructions Please call the [facility] at [phone] to schedule an appointment if one was not made for you today. Question Answer What is the primary reason for consult? Abnormal EKG [13] - nonverbal patient, asymptomatic bradycardia on lopressor At what location would you like the patient to be seen? [facility] ([address]) Specialty Diagnoses / Procedures Referred By Contac t Referred To Contact Colon and Rectal Surgery Diagnoses Sigmoid volvulus (HCC) Procedures CONSULT TO COLO-RECTAL SURGERY OFFICE/OUTPATIENT [facility] [place] 60 MINUTES Victoria Sanchez APRN.[facility] [address] [address] Juventino Fairbanks MD [address] [place] [address] Referral ID Status Reason Start Date Expiration Date Visits Requested Visits Authorized [id number] Authorized PCP Requested Referral 12/20/2023 12/19/2024 1 1 Additional Source Comments Reason for Visit (unrecogniz ed section and content) Reason Onset Date Comments Medical Record Review 03/29/2022 Reason Comments Cataract Evaluation Reason Comments Cataract Reason Comments Question Reason Comments REturned call Specialty Diagnoses / Procedures Referred By Contac t Referred To Contact Radiology Diagnoses Pre-op exam Procedures XR CHEST PA+LAT 2 VIEWS Franc Beyer MD [address] [place] [address] [facility] DIAGNOSTIC RADIOLOGY [address] [place] [address] Referral ID Status Reason Start Date Expiration Date Visits Re quested Visits Authorized [id number] Closed 06/22/2023 06/21/2024 1 1 Reason Onset Date Comments Pre-surgical Evaluation 06/26/2023 Informed Consent for dental surgery & Anesthesia consent obtained Reason Comments bradycardia Low HR (33) Specialty Diagnoses / Procedures Referred By Johan mcfadden Referred To Contact Ambulatory Surgery Diagnoses Caries 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 CHRISTINA completed - consent request sent to main - see future encounter for results. 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] Procedures UNLISTED PROCEDURE, DENTOALVEOLAR STRUCTURES ANESTHESIA, INTRAORAL PROC, W/BX; NOS DENTAL RESTORATIONS Mari Yi, ANIYAH [address] [place], [place] [id number] [facility] [address] [place] [id number] Phone: [phone] Referral ID Status Reason Start Date Expiration Date Visits Re quested Visits Authorized [id number] 3 3 Care Teams (unrecognized sec tion and content) Natural Resource Economist Relationship Specialty Start Date End Date Aileen Corcoran DDS [address] [place], [place] [id number] Resident Dentistry 08/20/20 Natural Resource Economist Relationship Specialty Start Date End Date Aileen Corcoran DDS [address] [place], [place] [id number] Resident Dentistry 08/20/20 Natural Resource Economist Relationship Specialty Start Date End Date Aileen Corcoran DDS [address] [place], [place] [phone] Resident Dentistry 08/20/20 Natural Resource Economist Relationship Specialty Start Date End Date Aileen Corcoran DDS [address] [place], [place] [phone] Resident Dentistry 08/20/20 Natural Resource Economist Relationship Specialty Start Date End Date Aileen Corcoran DDS [address] [place] [address] Resident Dentistry 08/20/20 Natural Resource Economist Relationship Specialty Start Date End Date Aileen Corcoran DDS [address] [place], [place] [phone] Resident Dentistry 08/20/20 Natural Resource Economist Relationship Specialty Start Date End Date Aileen Corcoran DDS [address] [place] [address] Resident Dentistry 08/20/20 Natural Resource Economist Relationship Specialty Start Date End Date Aileen Corcoran DDS [address] [place] [address] Resident Dentistry 08/20/20 Natural Resource Economist Relationship Specialty Start Date End Date Aileen Corcoran DDS [address] [place] [phone] Resident Dentistry 08/20/20 Natural Resource Economist Relationship Specialty Start Date End Date Aileen Corcoran DDS [address] [place] [address] Resident Dentistry 08/20/20 Natural Resource Economist Relationship Specialty Start Date End Date Aileen Corcoran DDS [address] [place] [address] Resident Dentistry 08/20/20 Natural Resource Economist Relationship Specialty Start Date End Date Aileen Corcoran DDS [address] [place] [address] Resident Dentistry 08/20/20 Natural Resource Economist Relationship Specialty Start Date End Date Aileen Corcoran DDS [address] [place] [id number] Resident Dentistry 08/20/20 Ling Coffman APRN-CNP [address] [place] [id number] HELMINTHOLOGIST Anesthesiology 01/19/24 Source Comments (unrecognize d section and content) In the event this informatio n is protected by the Federal Confidentiality of Alcohol and Drug Abuse Patient Records regulations: The Federal rules restrict any use of the information to criminally investigate or prosecute any alcohol or drug abuse patient.[facility] the event this information is protected by the Federal Confidentiality of Alcohol and Drug Abuse Patient Records regulations: The Federal rules restrict any use of the information to criminally investigate or prosecute any alcohol or drug abuse patient.[facility] the event this information is protected by the Federal Confidentiality of Alcohol and Drug Abuse Patient Records regulations: The Federal rules restrict any use of the information to criminally investigate or prosecute any alcohol or drug abuse patient.[facility] the event this information is protected by the Federal Confidentiality of Alcohol and Drug Abuse Patient Records regulations: The Federal rules restrict any use of the information to criminally investigate or prosecute any alcohol or drug abuse patient.[facility] the event this information is protected by the Federal Confidentiality of Alcohol and Drug Abuse Patient Records regulations: The Federal rules restrict any use of the information to criminally investigate or prosecute any alcohol or drug abuse patient.[facility] the event this information is protected by the Federal Confidentiality of Alcohol and Drug Abuse Patient Records regulations: The Federal rules restrict any use of the information to criminally investigate or prosecute any alcohol or drug abuse patient.[facility] the event this information is protected by the Federal Confidentiality of Alcohol and Drug Abuse Patient Records regulations: The Federal rules restrict any use of the information to criminally investigate or prosecute any alcohol or drug abuse patient.[facility] the event this information is protected by the Federal Confidentiality of Alcohol and Drug Abuse Patient Records regulations: The Federal rules restrict any use of the information to criminally investigate or prosecute any alcohol or drug abuse patient.[facility] the event this information is protected by the Federal Confidentiality of Alcohol and Drug Abuse Patient Records regulations: The Federal rules restrict any use of the information to criminally investigate or prosecute any alcohol or drug abuse patient.[facility] the event this information is protected by the Federal Confidentiality of Alcohol and Drug Abuse Patient Records regulations: The Federal rules restrict any use of the information to criminally investigate or prosecute any alcohol or drug abuse patient.[facility] (unrecognized sect ion and content) No Status Records FoundNo Status Records FoundNo Status Records FoundNo Status Records FoundNo Status Records FoundNo Status Records Found INFORMATION SOURCE (unrecogn ized section and content) DATE CREATED AUTHOR 01/26/2023 [facility] DATE CREATED AUTHOR AUTHOR'S ORGANIZ ATION 01/05/2024 [facility] DATE CREATED AUTHOR AUTHOR'S ORGANIZ ATION 01/13/2024 [facility] DATE CREATED AUTHOR AUTHOR'S ORGANIZ ATION 01/29/2024 [facility] DATE CREATED AUTHOR AUTHOR'S ORGANIZ ATION 02/15/2024 [facility] DATE CREATED AUTHOR AUTHOR'S ORGANIZ ATION 02/22/2024 [facility] Scheduled Active and Recently Administ ered Medications (unrecognized section and content) Medication Order 07/14/2023 07/15/2023 07/16/2023 lactated ringers iv bolus (COMPLETED) 1,000 mL, at 9,999 mL/hr, Intravenous, FLUID BOLUS, 1 dose, On 07/16/23 at 0954 0932 (IV New Bag - P rovider: Jose Miguel Colbert, MIRIAM)1207 (IV Stop - Provider: Jose Miguel Colbert, MIRIAM) PRN Medication Order 12/26/2023 12/27/2023 12/28/2023 acetaminophen (TYLENOL) tablet 650 mg, Oral, PACU ONCE PRN, Starting on Sun12/28/23 at 0921, Until Sun12/28/23 at 1520, Mild Pain (pain score 1,2,3), PACU Now bacitracin 500 UNIT/GM ointment (CANCELED) PRN, Starting on Sun12/28/23 at 1101, Until Sun12/28/23 at 1351, Intra-op 1101 (Given - Provid er: Reema Whiting DDS - Comment: Applied to lips at beginning and end of procedure) chlorhexidine (PERIDEX) 0.12 % oral solution (CANCELED) PRN, Starting on Sun12/28/23 at 1101, Until Sun12/28/23 at 1351, Intra-op 1101 (Given - Provid er: Reema Whiting DDS - Comment: Peridex mouth swabs throughout procedure) gelatin adsorbable (SURGIFOAM) 12-7 MM sponge (CANCELED) PRN, Starting on Sun12/28/23 at 1246, Until Sun12/28/23 at 1351, Intra-op 1246 (Given - Provid er: Reema Whiting DDS - Comment: Applied to socket sites after extraction) lidocaine-epinephrine (XYLOCAINE) 2 %-1:[id number] injection (CANCELED) PRN, Starting on Sun12/28/23 at 1132, Until Sun12/28/23 at 1351, Intra-op 1132 (Given - Provid er: Reema Whiting DDS - Comment: Injected into mouth sites prior to extraction)1152 (Given - Provider: Reema Whiting DDS) sodium chloride 0.9 % 0.9 % injection 3 mL, Intravenous Push, PRN, Starting on Sun12/28/23 at 0921, Until Discontinued, For medication administration and blood draw, PACU Now FOR RECORDS PERTAINING TO PATIENTS WHO ARE [...] BE BASED ON THE PRIMARY CLINICAL RECORDS. [employer] [facility]. provides no warranty or guarantee of the accuracy or completeness of information in this document.
--- OUTSIDE RECORDS SUMMARY | 2024-05-20 07:44 | XMS_ITS | CCD ---
Author Organization [facility] CliniSynh Care Team Providers Care Classroom Instructional Aide Name Role Phone Jewell MATA, Gallagher Unavailable Unavailable Primary Care Provider Unavailabl e Unavailable [...] Attending Unavailable CRANE, HERMAN Admitting Unavailable Markiv FLEET DIRECTOR-LUMBER CARRIER OPERATOR, Ling Unavailable [phone] Allergies Allergy Classification Reported Allergen(s) Allergy Type Date of Onset Reaction(s) Facility Macrolides (antibiotic) (1 source) Clarithromycin Drug Allergy 05-04-20 Other: See Comments [facility] (18 sources) Clarithromycin; Translations: [CLARITHROMYCIN] Propensity to adverse reactions to drug 06-12-20 Other [facility] Work Phone: (9 sources) Clarithromycin Drug Allergy 05-04-20 Other: See Comments [facility] (1 source) Clarithromycin Drug Allergy [facility] Repository Medications Current Medications Medication Drug [...] 4 mg/0.1 mL nasal liquid Use 1 [place] in one nostril (alternate sides) as needed [...] two times a day. polyethylene glycol 3350 25808 mg powder for oral solution (20 sources) [...] t wo times a day. 1999 sennosides, detention 8.6 mg oral capsule (20 sources) Sennosides [...] 23 Chronic Other aftercare (5 sources) Other intermodal dispatcher (current) drug therapy; Translations: [OTH JAIL CURRENT DRUG THERAPY] Onset: 12-04-19 Episodic Other [...] Remisol Chem Physician Orderon 02-13-2024 Physician Order [id number]# 1.00TIFF Normal [facility] Valproic Acidon 02-13-2024 Valpro Acid Lvl 98 microgram/mL Normal 50-99 [facility] Comment on above: Performed By: #### 2 [id number] #### [facility] [address] [place] [address] [facility] 01-11-2024 CNPN Telephone (CORSMN) JOHNNY DEVINE ([id number]) 1990 M Date Time Provider Department 01/11/24 CRIS DINH During your visit today, we recorded the following information about you: Cris Dinh, RN 01/11/2024 1:50 PM Signed Jessica from [facility] [phone] is caller. 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 Normal [facility] Anesthesia Preprocedure Eval uationon 12-28-2023 Steward/Stewardess Authentication Interface Message Text ASA: 3 NPO [...] and physical examination. Attestation: MHPATFORM Normal [facility] Anesthesia Transfer Of Careo n 12-28-2023 Steward/Stewardess Authentication Interface Message Text Patient taken to [...] Harpreet Mccurdy DDS; Location: [facility] [place]; Service: Dental Allergies: Biaxin [clarithromycin] Basic Operating Room Facts: Surgeon(s): Mari Yi DMD Anesthesiologist: Linda Saldivar MD EYEGLASS LENS GRINDER: Selena Camacho APRN-CRNA DENTAL RESTORATIONS (Bilateral: Mouth) [...] [phone] Comment: The [place] Diabetes Association (ADA) provides guidance for cutoff [...] Standards of Medical Care in Diabetes 2016, [place] Diabetes Association. Diabetes Care. 2016.39(Suppl 1). 8 0.70 8.2 11/06/23 [phone] Comment: The [place] Diabetes Association (ADA) provides guidance for cutoff [...] Standards of Medical Care in Diabetes 2016, [place] Diabetes Association. Diabetes Care. 2016.39(Suppl 1). 6 0.69 8 (more content not included)... Normal [facility] Blood Attestationon 12-28-19 Steward/Stewardess Authentication Interface Message Text Blood Attestation: ATTESTATION OF INFORMED CONSENT FOR BLOOD: The transfusion of blood and/or blood components were discussed with the patient and/or legal entry level marketing representative. The risks, benefits and alternatives were reviewed. Questions regarding blood transfusions were answered. The patient /or the patient's legal entry level marketing representative agree with the plan for transfusion of blood and/or blood components. Normal [facility] Brief Operative Noteon 12-27 Steward/Stewardess Authentication Interface Message Text Brief Operative Note PHE OR 3 Johnny Devine 33 year old male Surgical Contact Serial Number: [id number] Preoperative Diagnosis: Pre-op Diagnosis * Caries [K02.9] Moderate intellectual disability [F79] Postoperative Diagnosis: Moderate intellectual disability [F79] Procedures: Comprehensive exam [22906] Full mouth X-ray [ 70664] Extractions [86153] Restorations [23874] Prophy 74728] Fluoride treatment [48222] Surgeon(s): Surgeon(s): Mari Yi DMD Staff: Hanger Off Nurse: Henrietta Johnson Anesthesia: General Anesthesia Staff: [...] Whiting DDS 12/28/2023 1;48 pm Normal [facility] OP Noteon 12-28-2023 Steward/Stewardess Authentication Interface Message Text Surgical Case Number Data Unavailable Operating Room Data Unavailable Preoperative Diagnosis(es): Pre-op Diagnosis * Caries [K02.9] Moderate intellectual disability [F79] Postoperative Diagnosis(es): Moderate intellectual disability[F79] @ENCORD@ Surgeon: Dr. Mari Yi DMD Independent Sales Representative Surgeon: Reema Whiting DDS Anesthesia: General- Nasal [...] 4 mg/0.1 mL nasal liquid Use 1 [place] in one nostril (alternate sides) as needed [...] Whiting DDS 12/28/2023 1:53 pm Normal [facility] Progress Noteson 12-28-2023 Steward/Stewardess Authentication Interface Message Text Patient takes his seizure medication with pudding, facility held them today for dental surgery. Caregiver brought capsules with them to pre-op. Per Dr. Saldivar, divalproex 125 mg x 4 capsules (500 mg) were opened and sprinkles given to patient with 50 mL of water in pre-op. 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 MB cusp tip was visualized upon extraction of #17, but well encased in bone and would not be exposed to the oral cavity following healing of the extraction site. Preoperative Diagnosis(es): Pre-op Diagnosis * Caries [K02.9] Moderate intellectual disability [F79] Postoperative Diagnosis(es): Moderate intellectual disability[F79] Surgeon: Dr. Mari Yi DMD Independent Sales Representative Surgeon: Reema Whiting DDS Anesthesia: General- Nasal [...] at end of surgery: Stable Normal [facility] CHRISTINA Delgado Steward/Stewardess Authentication Interface Message Text Addendum 12/21/2023- Caregiver @ [facility] facility called to relay that patient unable to take medications without pudding. Per Dr. Newell: Instruct them to take the meds at night. Please then coordinate with either the anesthesia team or surgical team to order IV depacon so he can get his depakote. I would have the facility bring his oral depakote for after surgery If they can't get the depacon at [facility] CHRISTINA RN updated nursing staff @ [facility]. Normal [facility] BASIC METABOLIC PANELon 05-0 Anion gap [Moles/Vol] 13 mmol/L Normal 10-20 [facility] Comment on above: Performed By: #### C H8 #### [facility] [address] [place], [place], Calcium [Mass/Vol] 9.9 mg/dL Normal 8.6-10.3 [facility] Comment on above: Performed By: #### C H8 #### [facility] [address] [place], [place], Chloride [Moles/Vol] 106 mmol/L Normal 98-107 [facility] Comment on above: Performed By: #### C H8 #### [facility] [address] [place], [place], CO2 [Moles/Vol] 25 mmol/L Normal 21-31 [facility] Comment on above: Performed By: #### C H8 #### [facility] [address] [place], [place], Creatinine [Mass/Vol] 0.93 mg/dL Normal 0.70-1.30 [facility] Comment on above: Performed By: #### C H8 #### [facility] [address] [place], [place], ESTIMATED GFR (CKD-EPI) 113 mL/min/1.73sqm Normal >=60 [facility] Comment on above: Result Comment: 2020 [...] Inclusion of Race in Diagnosing Kidney Disease. [place] Journal of Kidney Diseases 2021;79(2):268-88.e1. 2. N Engl J Med 2020 Vol. 385 Issue 19 Pages 2581-5079 Performed By: #### C H8 #### [facility] [address] [place], [place], Glucose [Mass/Vol] 115 mg/dL High 74-109 [facility] Comment on above: Performed By: #### C H8 #### [facility] [address] [place], [place], Potassium [Moles/Vol] 4.6 mmol/L Normal 3.5-5.0 [facility] Comment on above: Performed By: #### C H8 #### [facility] [address] [place], [place], Sodium [Moles/Vol] 139 mmol/L Normal 136-145 [facility] Comment on above: Performed By: #### C H8 #### [facility] [address] [place], [place], Urea nitrogen [Mass/Vol] 15 mg/dL Normal 7-25 [facility] Comment on above: Performed By: #### C H8 #### [facility] [address] [place], [place], Basic metabolic 2000 panelon 12-19-2023 Anion [...] Inclusion of Race in Diagnosing Kidney Disease. [place] Journal of Kidney Diseases 2021;79(2):268-88.e1. 2. N Engl J Med 2020 Vol. 385 Issue 19 Pages 6039-5383 Glucose [Mass/Vol] 115 mg/dL High 74 - 109 mg/dL [facility] Interpretation and review of laboratory results Abnormal [facility] Potassium [Moles/Vol] 4.6 mmol/L 3.5 - 5.0 mmol/L [facility] Sodium [Moles/Vol] 139 mmol/L 136 - 145 mmol/L [facility] Urea nitrogen [Mass/Vol] 15 mg/dL 7 - 25 mg/dL [facility] PAT Appt H AND Ross 4 Steward/Stewardess Authentication Interface Message Text Patient was identified by name and date of . Jaswinder Arredondo Patient at risk for falls:No Falls Risk protocol implemented: N/A Normal [facility] Patient Instructionson 12-18 Steward/Stewardess Authentication Interface Message Text [facility] staff: Since patient is unable to take [...] for pain. Please hold all Vitamin E, [place] 3, fish oil and herbal supplements for 1 week prior to surgery. Please use this LIST to prepare for your surgery/procedure: ? Assume that any lab or testing done during your Pre-admission testing appointment is within normal limits unless otherwise contacted. ? Expect a call from [facility] one business day prior to surgery for [...] questions. Contact the Pre-Admission Testing department at [phone] or your surgeon's office with any questions [...] stay with you after surgery. Please call Telly if you need transportation assistance or have concerns about going home [phone]. ? SLEEP APNEA PATIENTS: Bring your sleep apnea machine and mask. ? PLEASE BE ON TIME. A late arrival may result in the cancellation/ delay of your surgery. 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] Obesity, Class I, BMI 30-34.9 [E66.9] 11/02/2023 S/P laparoscopy [Z98.890] 11/05/2023 Acute postoperative pain [G89.18] 11/05/2023 Oropharyngeal dysphagia [R13.12] 11/06/2023 Epilepsy (HCC) [G40.909] 11/06/2023 Level of Service: OFFICE/OUTPATIENT EST PT MAY NOT REQ PHYS/QHP [26794] LOS History for Encounter Encounter Status:Closed by CHEOUDI, ALI WILLIAM on 12/03/23 Normal [facility] CNOVon 11-28-2023 CNOV Office Visit (CORTEZ ) NILSONJOHNNY TERRY ([id number]) 1990 M Date Time Provider Department 11/28/23 [...] Victoria Sanchez APRN.CNP 11/28/2023 10:19 AM Signed [facility] Clinic Date: November 28, 2023 Johnny Devine 33 year old male CHIEF COMPLAINT: Patient presents for follow up from surgery. HPI: Here for follow up after diagnostic laparotomy on 10/29/[address] Robin. Patient also underwent a dorsal slit procedure with urology on 10/30/2023 for paraphimosis. Patient with a leg assembler today to discuss his postoperative course since [...] ICD10: Z48.89 (more content not included)... 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] Obesity, Class I, BMI 30-34.9 [E66.9] 11/02/2023 S/P laparoscopy [Z98.890] 11/05/2023 Acute postoperative pain [G89.18] 11/05/2023 Oropharyngeal dysphagia [R13.12] 11/06/2023 Epilepsy (HCC) [G40.909] 11/06/2023 Encounter Status:Closed by CRIS DINH on 11/12/23 Normal [facility] Basic metabolic 2000 panelon 11-07-2023 Anion gap [Moles/Vol] 10 mmol/L Normal 9-18 [facility] Comment on above: Order Comment: Speci men Type: BLOOD SPECIMEN Ordering Facility: [facility] Address: [address] [place] [address] Performed By: #### 2 4321-2, , 2776-08 #### [facility] CLIA [id number] [address] [place] [address] [place] Calcium [Mass/Vol] 8.2 mg/dL Low 8.5-10.2 [facility] Comment on above: Order Comment: Speci men Type: BLOOD SPECIMEN Ordering Facility: [facility] Address: [address] [place] [address] Performed By: #### 2 4321-2, , 2776-08 #### [facility] CLIA [id number] [address] [place] [address] [place] Chloride [Moles/Vol] 110 mmol/L High 97-105 [facility] Comment on above: Order Comment: Speci men Type: BLOOD SPECIMEN Ordering Facility: [facility] Address: [address] [place] [address] Performed By: #### 2 4321-2, , 2776-08 #### [facility] CLIA [id number] [address] [place] [address] [place] CO2 [Moles/Vol] 21 mmol/L Low 22-30 [facility] Comment on above: Order Comment: Speci men Type: BLOOD SPECIMEN Ordering Facility: [facility] Address: [address] [place] [address] Performed By: #### 2 4321-2, , 2776-08 #### [facility] CLIA [id number] [address] [place], [place] [address] [place] Creatinine [Mass/Vol] 0.70 mg/dL Low 0.73-1.22 [facility] Comment on above: Order Comment: Sana zuñiga Type: BLOOD SPECIMEN Ordering Facility: [facility] Address: [address] [place] [address] Performed By: #### 2 4321-2, , 2776-08 #### [facility] CLIA [id number] [address] [place] [address] [place] Creatinine and Glomerular filtration rate.predicted panel (S/P/Bld) 126 mL/min/1.73m??? Normal >=60 [facility] Comment on above: Order Comment: Sana zuñiga Type: BLOOD SPECIMEN Ordering Facility: [facility] Address: [address] [place] [address] Result Comment: Lor mated Glomerular Filtration Rate [...] By: #### 2 4321-2, , 2776-08 #### [facility] CLIA [id number] [address] [place] [address] [place] Glucose [Mass/Vol] 91 mg/dL Normal 74-99 [facility] Comment on above: Order Comment: Sana zuñiga Type: BLOOD SPECIMEN Ordering Facility: [facility] Address: [address] [place] [address] Result Comment: The [place] Diabetes Association (ADA) provides guidance for cutoff [...] Standards of Medical Care in Diabetes 2016, [place] Diabetes Association. Diabetes Care. 2016.39(Suppl 1). Performed By: #### 2 4321-2, , 2776-08 #### [facility] CLIA [id number] [address] [place], [place] [address] [place] Potassium [Moles/Vol] 4.4 mmol/L Normal 3.7-5.1 [facility] Comment on above: Order Comment: Speci men Type: BLOOD SPECIMEN Ordering Facility: [facility] Address: [address] [place] [address] Performed By: #### 2 4321-2, , 2776-08 #### [facility] CLIA [id number] [address] [place] [address] [place] Sodium [Moles/Vol] 141 mmol/L Normal 136-144 [facility] Comment on above: Order Comment: Speci men Type: BLOOD SPECIMEN Ordering Facility: [facility] Address: [address] [place] [address] Performed By: #### 2 4321-2, , 2776-08 #### [facility] CLIA [id number] [address] [place] [address] [place] Urea nitrogen [Mass/Vol] 8 mg/dL Low 9-24 [facility] Comment on above: Order Comment: Speci men Type: BLOOD SPECIMEN Ordering Facility: [facility] Address: [address] [place] [address] Performed By: #### 2 4321-2, , 2776-08 #### [facility] CLIA [id number] [address] [place], [place] [address] [place] CBC panel Auto (Bld)on 11-06 Erythrocyte distribution width (RBC) [Ratio] 15.1 % High 11.5-15.0 [facility] Comment on above: Order Comment: Speci men Type: BLOOD SPECIMENOrdering Facility: [facility] Address: [address] [place] [address] Performed By: #### 5 8410-2 ####[facility] [id number] [place] [address] [place] Hematocrit (Bld) [Volume fraction] 31.4 % Low 39.0-51.0 [facility] Comment on above: Order Comment: Speci men Type: BLOOD SPECIMENOrdering Facility: [facility] Address: [address] [place] [address] Performed By: #### 5 8410-2 ####[facility] [id number] [place] [address] [place] Hemoglobin (Bld) [Mass/Vol] 9.9 g/dL Low 13.0-17.0 [facility] Comment on above: Order Comment: Speci men Type: BLOOD SPECIMENOrdering Facility: [facility] Address: [address] [place] [address] Performed By: #### 5 8410-2 ####[facility] [id number] [place] [address] [place] MCH (RBC) [Entitic mass] 27.3 pg Normal 26.0-34.0 [facility] Comment on above: Order Comment: Speci men Type: BLOOD SPECIMENOrdering Facility: [facility] Address: [address] [place] [address] Performed By: #### 5 8410-2 ####[facility] [id number] [place] [address] [place] MCHC (RBC) [Mass/Vol] 31.5 g/dL Normal 30.5-36.0 [facility] Comment on above: Order Comment: Speci men Type: BLOOD SPECIMENOrdering Facility: [facility] Address: [address] [place] [address] Performed By: #### 5 8410-2 ####[facility] [id number] [place] [address] [place] MCV (RBC) [Entitic vol] 86.5 fL Normal 80.0-100.0 [facility] Comment on above: Order Comment: Speci men Type: BLOOD SPECIMENOrdering Facility: [facility] Address: [address] [place] [address] Performed By: #### 5 8410-2 ####[facility] [id number] [place] [address] [place] Nucleated RBC (Bld) [#/Vol] 10*3/uL Normal <0.01 [facility] Comment on above: Order Comment: Speci men Type: BLOOD SPECIMENOrdering Facility: [facility] Address: [address] [place] [address] Performed By: #### 5 8410-2 ####[facility] [id number] [place] [address] [place] Platelet mean volume (Bld) [Entitic vol] 9.4 fL Normal 9.0-12.7 [facility] Comment on above: Order Comment: Speci men Type: BLOOD SPECIMENOrdering Facility: [facility] Address: [address] [place] [address] Performed By: #### 5 8410-2 ####[facility] [id number] [place] [address] [place] Platelets (Bld) [#/Vol] 215 10*3/uL Normal 150-400 [facility] Comment on above: Order Comment: Speci men Type: BLOOD SPECIMENOrdering Facility: [facility] Address: [address] [place] [address] Performed By: #### 5 8410-2 ####[facility] [id number] [place] [address] [place] RBC (Bld) [#/Vol] 3.63 10*6/uL Low 4.20-6.00 [facility] Comment on above: Order Comment: Speci men Type: BLOOD SPECIMENOrdering Facility: [facility] Address: [address] [place] [address] Performed By: #### 5 8410-2 ####[facility] [id number] [place] [address] [place] WBC (Bld) [#/Vol] 8.67 10*3/uL Normal 3.70-11.00 [facility] Comment on above: Order Comment: Speci men Type: BLOOD SPECIMENOrdering Facility: [facility] Address: [address] [place] [address] Performed By: #### 5 8410-2 ####[facility] [id number] [place] [address] [place] CNCOon 11-07-2023 CNCO Letter Text Normal [facility] CNDSon 11-07-2023 CNDS HNO ID: [id number] Author: SAMUEL ROBIN MD Service: General Surgery [...] PSH who presents as a transfer to [facility] from [facility] ED for further management of small bowel obstruction. Given patient's baseline cognitive status, NGT difficult to maintain. He was admitted to the [facility] under care of general surgery and was taken to the OR the following morning for diagnostic laparoscopy. Intra-operative findings demonstrated no adhesins, no apparent hernias, dilated small/large bowel, redundant sigmoid c/f volvulus, easily reduced. After recovering in the PACU, he was taken to the [facility] with NGT in place. Patient arrived to [facility] with 8 Fr pediatric haskins catheter [...] in home regimen. Stable for discharge to halfway. Neurology Recommendations on Discharge: - Discharge on anti-epileptic medications as prescribed - Please schedule outpatient follow-up with epilepsy - Please order outpatient MRI without contrast (3T epilepsy protocol) to be done prior to epilepsy appointment Active Hospital Problems Diagnosis Date Noted Oropharyngeal dysphagia 11/06/2023 Epilepsy ([facility]) 11/06/2023 S/P laparoscopy 11/05/2023 Acute postoperative pain 11/05/2023 Obesity, Class I, BMI 30-34.9 11/02/2023 Developmental non-verbal disorder Obsessive-compulsive disorder 09/16/2018 Moderate intellectual disability 09/16/2018 Hypothyroidism 09/16/2018 Bipolar disorder ([facility]) 09/16/2018 Resolved Hospital Problems Diagnosis Date Noted Date Resolved SBO (small bowel obstruction) ([facility]) 10/28/2023 10/31/2023 Transitions of Care Critical Issues: Follow up with Dr. Fairbanks MRI as outpatient and follow up with Neurology in 2 weeks LABS AND PROCEDURES PENDING AT DISCHARGE: No pending results. CONSULTING TEAMS DURING HOSPIT (more content not included)... Normal [facility] CONSULT PROGon 11-07-2023 CONSULT PROG HNO ID: [id number] Author: BRUCE RESENDIZ MD Service: Neurology General [...] November 06, 2023 TIME: 8:36 AM Normal [facility] Magnesium SerPl-mCncon 11-06 Magnesium [Mass/Vol] 2.1 mg/dL Normal 1.7-2.3 [facility] Comment on above: Order Comment: Speci men Type: BLOOD SPECIMEN Ordering Facility: [facility] Address: [address] [place] [address] Performed By: #### 2 4321-2, 95734-5, 2777-1 #### [facility] CLIA [id number] [address] [place] [address] [place] [address] [place] NURSING PROGon 11-07-2023 NURSING PROG HNO ID: [id number] Author: MAYANK READ RN Service: Nursing Author Type: Registered Nurse Type: Nursing Progress Note Filed: 11/07/2023 14:53 Note Text: Pt is discharged to a halfway, supervisor electronics inspection Magi just arrived to lease picker. Reviewed discharge paper works and handed it to the supervisor electronics inspection. IV removed, pt tolerated. EEG removed by veterinary assistant technician. Normal [facility] NUTRITIONon 11-07-2023 NUTRITION HNO ID: [id number] Author: RAFAELA COOL DTR Service: Nutrition Therapy Author Type: Glass Mould Cleaner Type: Nutrition Filed: 11/07/2023 13:38 Note Text: NUTRITION THERAPY [employer]ES AGENT NOTE SERVICE DATE: 11/07/2023 SERVICE TIME: 1000 [...] November 07, 2023 TIME: 1:38 PM Normal [facility] Phosphate SerPl-mCncon 11-06 Phosphate [Mass/Vol] 4.1 mg/dL Normal 2.7-4.8 [facility] Comment on above: Order Comment: Speci men Type: BLOOD SPECIMEN Ordering Facility: [facility] Address: [address] [place] [address] Performed By: #### 2 4321-2, 43935-6, 2777-1 #### [facility] CLIA [id number] [address] [place] [address] [place] [address] [place] Basic metabolic 2000 panelon 11-06-2023 Anion gap [Moles/Vol] 16 mmol/L Normal 9-18 [facility] Comment on above: Order Comment: Speci men Type: BLOOD SPECIMEN Ordering Facility: [facility] Address: [address] [place] [address] Performed By: #### 2 4321-2, , 2776-08 #### [facility] CLIA [id number] [address] [place] [address] [place] Calcium [Mass/Vol] 8.9 mg/dL Normal 8.5-10.2 [facility] Comment on above: Order Comment: Speci men Type: BLOOD SPECIMEN Ordering Facility: [facility] Address: [address] [place] [address] Performed By: #### 2 4321-2, , 2776-08 #### [facility] CLIA [id number] [address] [place] [address] [place] Chloride [Moles/Vol] 112 mmol/L High 97-105 [facility] Comment on above: Order Comment: Speci men Type: BLOOD SPECIMEN Ordering Facility: [facility] Address: [address] [place] [address] Performed By: #### 2 4321-2, , 2776-08 #### [facility] CLIA [id number] [address] [place] [address] [place] CO2 [Moles/Vol] 18 mmol/L Low 22-30 [facility] Comment on above: Order Comment: Speci men Type: BLOOD SPECIMEN Ordering Facility: [facility] Address: [address] [place] [address] Performed By: #### 2 4321-2, , 2776-08 #### [facility] CLIA [id number] [address] [place] [address] [place] Creatinine [Mass/Vol] 0.69 mg/dL Low 0.73-1.22 [facility] Comment on above: Order Comment: Sana zuñiga Type: BLOOD SPECIMEN Ordering Facility: [facility] Address: [address] [place] [address] Performed By: #### 2 4321-2, , 2776-08 #### [facility] CLIA [id number] [address] [place] [address] [place] Creatinine and Glomerular filtration rate.predicted panel (S/P/Bld) 127 mL/min/1.73m??? Normal >=60 [facility] Comment on above: Order Comment: Sana zuñiga Type: BLOOD SPECIMEN Ordering Facility: [facility] Address: [address] [place] [address] Result Comment: Lor mated Glomerular Filtration Rate [...] By: #### 2 4321-2, , 2776-08 #### [facility] CLIA [id number] [address] [place] [address] [place] Glucose [Mass/Vol] 83 mg/dL Normal 74-99 [facility] Comment on above: Order Comment: Sana zuñiga Type: BLOOD SPECIMEN Ordering Facility: [facility] Address: [address] [place] [address] Result Comment: The [place] [employer] (ADA) provides guidance for cutoff [...] Standards of Medical Care in Diabetes 2016, [place] [employer]. Diabetes Care. 2016.39(Suppl 1). Performed By: #### 2 4321-2, , 2776-08 #### [facility] CLIA [id number] [address] [place] [address] [place] Potassium [Moles/Vol] 4.9 mmol/L Normal 3.7-5.1 [facility] Comment on above: Order Comment: Speci men Type: BLOOD SPECIMEN Ordering Facility: [facility] Address: [address] [place] [address] Performed By: #### 2 4321-2, , 2776-08 #### [facility] CLIA [id number] [address] [place] [address] [place] Sodium [Moles/Vol] 146 mmol/L High 136-144 [facility] Comment on above: Order Comment: Speci men Type: BLOOD SPECIMEN Ordering Facility: [facility] Address: [address] [place] [address] Performed By: #### 2 4321-2, , 2776-08 #### [facility] CLIA [id number] [address] [place] [address] [place] Urea nitrogen [Mass/Vol] 6 mg/dL Low 9-24 [facility] Comment on above: Order Comment: Speci men Type: BLOOD SPECIMEN Ordering Facility: [facility] Address: [address] [place] [address] Performed By: #### 2 4321-2, , 2776-08 #### [facility] CLIA [id number] [address] [place], [place] [address] [place] CBC panel Auto (Bld)on 11-05 Erythrocyte distribution width (RBC) [Ratio] 14.8 % Normal 11.5-15.0 [facility] Comment on above: Order Comment: Speci men Type: BLOOD SPECIMEN Ordering Facility: [facility] Address: [address] [place] [address] Performed By: #### 2 777-1, 36444-7, #### [facility] CLIA [id number] [address] [place] [address] [place] Hematocrit (Bld) [Volume fraction] 31.3 % Low 39.0-51.0 [facility] Comment on above: Order Comment: Speci men Type: BLOOD SPECIMEN Ordering Facility: [facility] Address: [address] [place], [place] [address] Performed By: #### 2 777-1, 94485-4, #### [facility] CLIA [id number] [address] [place], [place] [address] [place] Hemoglobin (Bld) [Mass/Vol] 9.8 g/dL Low 13.0-17.0 [facility] Comment on above: Order Comment: Speci men Type: BLOOD SPECIMEN Ordering Facility: [facility] Address: [address] [place], [place] [address] Performed By: #### 2 777-1, 53615-6, #### [facility] CLIA [id number] [address] [place] [address] [place] MCH (RBC) [Entitic mass] 26.4 pg Normal 26.0-34.0 [facility] Comment on above: Order Comment: Speci men Type: BLOOD SPECIMEN Ordering Facility: [facility] Address: [address] [place] [address] Performed By: #### 2 777-1, 57957-8, #### [facility] CLIA [id number] [address] [place] [address] [place] MCHC (RBC) [Mass/Vol] 31.3 g/dL Normal 30.5-36.0 [facility] Comment on above: Order Comment: Speci men Type: BLOOD SPECIMEN Ordering Facility: [facility] Address: [address] [place] [address] Performed By: #### 2 777-1, 63105-9, #### [facility] CLIA [id number] [address] [place] [address] [place] MCV (RBC) [Entitic vol] 84.4 fL Normal 80.0-100.0 [facility] Comment on above: Order Comment: Speci men Type: BLOOD SPECIMEN Ordering Facility: [facility] Address: [address] [place] [address] Performed By: #### 2 777-1, 74680-3, #### [facility] CLIA [id number] [address] [place] [address] [place] Nucleated RBC (Bld) [#/Vol] 10*3/uL Normal <0.01 [facility] Comment on above: Order Comment: Speci men Type: BLOOD SPECIMEN Ordering Facility: [facility] Address: [address] [place], [place] [address] Performed By: #### 2 777-1, 71318-4, #### [facility] CLIA [id number] [address] [place], [place] [address] [place] Platelet mean volume (Bld) [Entitic vol] 8.9 fL Low 9.0-12.7 [facility] Comment on above: Order Comment: Speci men Type: BLOOD SPECIMEN Ordering Facility: [facility] Address: [address] [place] [address] Performed By: #### 2 777-1, 43406-9, #### [facility] CLIA [id number] [address] [place], [place] [address] [place] Platelets (Bld) [#/Vol] 244 10*3/uL Normal 150-400 [facility] Comment on above: Order Comment: Speci men Type: BLOOD SPECIMEN Ordering Facility: [facility] Address: [address] [place], [place] [address] Performed By: #### 2 777-1, 00558-1, #### [facility] CLIA [id number] [address] [place] [address] [place] RBC (Bld) [#/Vol] 3.71 10*6/uL Low 4.20-6.00 [facility] Comment on above: Order Comment: Speci men Type: BLOOD SPECIMEN Ordering Facility: [facility] Address: [address] [place] [address] Performed By: #### 2 777-1, 75087-3, #### [facility] CLIA [id number] [address] [place] [address] [place] WBC (Bld) [#/Vol] 7.59 10*3/uL Normal 3.70-11.00 [facility] Comment on above: Order Comment: Speci men Type: BLOOD SPECIMEN Ordering Facility: [facility] Address: [address] [place] [address] Performed By: #### 2 777-1, 15876-5, #### [facility] CLIA [id number] [address] [place], [place] [address] [place] CONSULT PROGon 11-06-2023 CONSULT PROG HNO ID: [id number] Author: KIM BHAKTA MD Service: Neurology General [...] for now. Kim Bhakta MD Staff Neurologist [facility] for Multiple Sclerosis Normal [facility] Magnesium SerPl-mCncon 11-05 Magnesium [Mass/Vol] 2.3 mg/dL Normal 1.7-2.3 [facility] Comment on above: Order Comment: Specdeshawn zuñiga Type: BLOOD SPECIMEN Ordering Facility: [facility] Address: [address] [place] [address] Performed By: #### 2 4321-2, 39050-8, 2777-1 #### [facility] CLIA [id number] [address] [place], [place] [address] [address] [address] [place] Phosphate SerPl-mCncon 11-05 Phosphate [Mass/Vol] 4.1 mg/dL Normal 2.7-4.8 [facility] Comment on above: Order Comment: Sana zuñiga Type: BLOOD SPECIMEN Ordering Facility: [facility] Address: [address] [place] [address] Performed By: #### 2 4321-2, 46793-5, 2777-1 #### [facility] CLIA [id number] [address] [place] [address] [place] THERAPY NTon 11-06-2023 THERAPY NT HNO ID: [id number] Author: CHANTELL BELLA CCC-TOP PRECIPITATOR OPERATOR Service: Speech/Swallow Author Type: Speech Language Pathologist Type: Therapy (PT/OT/Speech/Resp) Filed: 11/06/2023 10:28 Note Text: [facility] Speech Pathology - [facility] Bedside Swallow Evaluation SERVICE DATE: 11/06/2023 [address] IMPRESSIONS: Limited bedside swallowing evaluation as patient [...] assessment. PLAN: Page with concerns/questions. Chantell Bella CCC-TOP PRECIPITATOR OPERATOR Pager # [phone] BRIEF DIAGNOSIS AND HISTORY per General Surgery [...] discussed with: MIRIAM adkins SIGNATURE: Chantell Bella CCC-TOP PRECIPITATOR OPERATOR PATIENT NAME: Johnny Devine DATE: November 06, 2023 TIME: 10:12 AM PAGER: [phone] Normal [facility] Basic metabolic 2000 panelon 11-05-2023 Anion gap [Moles/Vol] 7 mmol/L Low 05-07 [facility] Comment on above: Order Comment: Speci men Type: BLOOD SPECIMEN Ordering Facility: [facility] Address: [address] [place], [place] [address] Performed By: #### 5 7021-8 #### [facility] CLIA [id number] [address] [place], [place] [address] [place] Calcium [Mass/Vol] 7.6 mg/dL Low 8.5-10.2 [facility] Comment on above: Order Comment: Speci men Type: BLOOD SPECIMEN Ordering Facility: [facility] Address: [address] [place] [address] Performed By: #### 5 7021-8 #### [facility] CLIA [id number] [address] [place] [address] [place] Chloride [Moles/Vol] 112 mmol/L High 97-105 [facility] Comment on above: Order Comment: Speci men Type: BLOOD SPECIMEN Ordering Facility: [facility] Address: [address] [place] [address] Performed By: #### 5 7021-8 #### [facility] CLIA [id number] [address] [place] [address] [place] CO2 [Moles/Vol] 23 mmol/L Normal 22-30 [facility] Comment on above: Order Comment: Speci men Type: BLOOD SPECIMEN Ordering Facility: [facility] Address: [address] [place], [place] [address] Performed By: #### 5 7021-8 #### [facility] CLIA [id number] [address] [place], [place] [address] [place] Creatinine [Mass/Vol] 0.64 mg/dL Low 0.73-1.22 [facility] Comment on above: Order Comment: Speci men Type: BLOOD SPECIMEN Ordering Facility: [facility] Address: [address] [place], [place] [address] Performed By: #### 5 7021-8 #### [facility] CLIA [id number] [address] [place] [address] [place] Creatinine and Glomerular filtration rate.predicted panel (S/P/Bld) 130 mL/min/1.73m??? Normal >=60 [facility] Comment on above: Order Comment: Sana zuñiga Type: BLOOD SPECIMEN Ordering Facility: [facility] Address: [address] [place] [address] Result Comment: Lor mated Glomerular Filtration Rate [...] GFR. Performed By: #### 5 7021-8 #### [facility] CLIA [id number] [address] [place] [address] [place] Glucose [Mass/Vol] 96 mg/dL Normal 74-99 [facility] Comment on above: Order Comment: Sana zuñiga Type: BLOOD SPECIMEN Ordering Facility: [facility] Address: [address] [place] [address] Result Comment: The [place] [employer] (ADA) provides guidance for cutoff [...] Standards of Medical Care in Diabetes 2016, [place] [employer]. Diabetes Care. 2016.39(Suppl 1). Performed By: #### 5 7021-8 #### [facility] CLIA [id number] [address] [place] [address] [place] Potassium [Moles/Vol] 4.2 mmol/L Normal 3.7-5.1 [facility] Comment on above: Order Comment: Speci men Type: BLOOD SPECIMEN Ordering Facility: [facility] Address: [address] [place] [address] Performed By: #### 5 7021-8 #### [facility] CLIA [id number] [address] [place] [address] [place] Sodium [Moles/Vol] 142 mmol/L Normal 136-144 [facility] Comment on above: Order Comment: Speci men Type: BLOOD SPECIMEN Ordering Facility: [facility] Address: [address] [place] [address] Performed By: #### 5 7021-8 #### [facility] CLIA [id number] [address] [place] [address] [place] Urea nitrogen [Mass/Vol] 5 mg/dL Low 9-24 [facility] Comment on above: Order Comment: Speci men Type: BLOOD SPECIMEN Ordering Facility: [facility] Address: [address] [place] [address] Performed By: #### 5 7021-8 #### [facility] CLIA [id number] [address] [place] [address] [place] CBC panel Auto (Bld)on 11-04 Erythrocyte distribution width (RBC) [Ratio] 14.6 % Normal 11.5-15.0 [facility] Comment on above: Order Comment: Speci men Type: BLOOD SPECIMENOrdering Facility: [facility] Address: [address] [place] [address] Performed By: #### 5 8410-2 ####[facility] [id number] [place] [address] [place] Hematocrit (Bld) [Volume fraction] 30.8 % Low 39.0-51.0 [facility] Comment on above: Order Comment: Speci men Type: BLOOD SPECIMENOrdering Facility: [facility] Address: [address] [place] [address] Performed By: #### 5 8410-2 ####[facility] [id number] [place] [address] [place] Hemoglobin (Bld) [Mass/Vol] 9.7 g/dL Low 13.0-17.0 [facility] Comment on above: Order Comment: Speci men Type: BLOOD SPECIMENOrdering Facility: [facility] Address: [address] [place] [address] Performed By: #### 5 8410-2 ####[facility] [id number] [place] [address] [place] MCH (RBC) [Entitic mass] 26.5 pg Normal 26.0-34.0 [facility] Comment on above: Order Comment: Speci men Type: BLOOD SPECIMENOrdering Facility: [facility] Address: [address] [place] [address] Performed By: #### 5 8410-2 ####[facility] [id number] [place] [address] [place] MCHC (RBC) [Mass/Vol] 31.5 g/dL Normal 30.5-36.0 [facility] Comment on above: Order Comment: Speci men Type: BLOOD SPECIMENOrdering Facility: [facility] Address: [address] [place] [address] Performed By: #### 5 8410-2 ####[facility] [id number] [place] [address] [place] MCV (RBC) [Entitic vol] 84.2 fL Normal 80.0-100.0 [facility] Comment on above: Order Comment: Speci men Type: BLOOD SPECIMENOrdering Facility: [facility] Address: [address] [place] [address] Performed By: #### 5 8410-2 ####[facility] [id number] [place] [address] [place] Nucleated RBC (Bld) [#/Vol] 10*3/uL Normal <0.01 [facility] Comment on above: Order Comment: Speci men Type: BLOOD SPECIMENOrdering Facility: [facility] Address: [address] [place] [address] Performed By: #### 5 8410-2 ####[facility] [id number] [place] [address] [place] Platelet mean volume (Bld) [Entitic vol] 9.1 fL Normal 9.0-12.7 [facility] Comment on above: Order Comment: Speci men Type: BLOOD SPECIMENOrdering Facility: [facility] Address: [address] [place] [address] Performed By: #### 5 8410-2 ####[facility] [id number] [place] [address] [place] Platelets (Bld) [#/Vol] 205 10*3/uL Normal 150-400 [facility] Comment on above: Order Comment: Speci men Type: BLOOD SPECIMENOrdering Facility: [facility] Address: [address] [place] [address] Performed By: #### 5 8410-2 ####[facility] [id number] [place] [address] [place] RBC (Bld) [#/Vol] 3.66 10*6/uL Low 4.20-6.00 [facility] Comment on above: Order Comment: Speci men Type: BLOOD SPECIMENOrdering Facility: [facility] Address: [address] [place] [address] Performed By: #### 5 8410-2 ####[facility] [id number] [place] [address] [place] WBC (Bld) [#/Vol] 7.54 10*3/uL Normal 3.70-11.00 [facility] Comment on above: Order Comment: Speci men Type: BLOOD SPECIMENOrdering Facility: [facility] Address: [address] [place] [address] Performed By: #### 5 8410-2 ####[facility] [id number] [place] [address] [place] Magnesium SerPl-ncon 11-04 Magnesium [Mass/Vol] 2.0 mg/dL Normal 1.7-2.3 [facility] Comment on above: Order Comment: Speci men Type: BLOOD SPECIMEN Ordering Facility: [facility] Address: [address] [place] [address] Performed By: #### 5 7021-8 #### [facility] CLIA [id number] [address] [place] [address] [place] Phosphate SerPl-mCncon 11-04 Phosphate [Mass/Vol] 3.1 mg/dL Normal 2.7-4.8 [facility] Comment on above: Order Comment: Speci men Type: BLOOD SPECIMEN Ordering Facility: [facility] Address: [address] [place] [address] Performed By: #### 5 7021-8 #### [facility] CLIA [id number] [address] [place] [address] [place] THERAPY NTon 11-05-2023 THERAPY NT HNO ID: [id number] Author: ANA LUISA MORALES, PT Service: ? Author Type: Physical Therapist Type: Therapy (PT/OT/Speech/Resp) Filed: 11/05/2023 15:46 Note Text: Physical Therapy Evaluation Summary SERVICE DATE: 11/05/2023 SERVICE TIME: 1459 to 1532 ROOM: H071[facility] PT 6 Clicks Score: 18 DISCHARGE RECOMMENDATIONS Home Recommended Discharge Disposition Comments: Anticipate patient will continue to progress in mobility. Anticipate return to halfway as long as able to provide current [...] Patient Lives With: Other: See Comment Comments: snf ( intermediate care ) Assistance Available: 24-Hour PRIOR FUNCTIONAL LEVEL Required Assistance Assistance Required With: Cleaning, Laundry, Meals, Safety, Self Care, Shopping, Transportation Patient non-verbal at baseline. Aunt (cate) present during session to obtain PLOF. Patient lives at halfway. I with mobility. Can feed himself and bathe, but requires cueing to do so. Will communicate with yes/no head nods. Aunt reports he has OCD, and sometimes needs time to do things at his own pace. Unsure of current interests, but tends to like to put things together, laundry, Spruce. SUBJECTIVE Pt non-verbal throughout session THERAPY DIAGNOSIS Reduced mobility-other, Abnormalities of gait and mobility-other TREATMENT INTERVENTIONS Evaluation, Therapeutic Activity (73565) Timed Code Treatment (minutes): 18 Skilled Treatment [...] Type: Stepping Bed To Chair Transfer Equipment: (GAMING CASHIER) frequent verbal cues Gait Contact Guard Assistance [...] November 05, 2023 TIME: 3:46 PM Normal [facility] Basic metabolic 2000 panelon 11-04-2023 Anion gap [Moles/Vol] 9 mmol/L Normal - [facility] Comment on above: Order Comment: Speci men Type: BLOOD SPECIMEN Ordering Facility: [facility] Address: [address] [place] [address] Performed By: #### 2 777-1, 53917-5, #### [facility] CLIA [id number] [address] [place], [place] [address] [address] [address] [place] Calcium [Mass/Vol] 7.7 mg/dL Low 8.5-10.2 [facility] Comment on above: Order Comment: Speci men Type: BLOOD SPECIMEN Ordering Facility: [facility] Address: [address] [place] [address] Performed By: #### 2 777-1, 48211-1, #### [facility] CLIA [id number] [address] [place] [address] [place] Chloride [Moles/Vol] 112 mmol/L High 97-105 [facility] Comment on above: Order Comment: Speci men Type: BLOOD SPECIMEN Ordering Facility: [facility] Address: [address] [place] [address] Performed By: #### 2 777-1, 59226-2, 58890-5 #### [facility] CLIA [id number] [address] [place] [address] [place] CO2 [Moles/Vol] 24 mmol/L Normal 22-30 [facility] Comment on above: Order Comment: Speci men Type: BLOOD SPECIMEN Ordering Facility: [facility] Address: [address] [place] [address] Performed By: #### 2 777-1, 67883-6, 79485-6 #### [facility] CLIA [id number] [address] [place] [address] [place] Creatinine [Mass/Vol] 0.70 mg/dL Low 0.73-1.22 [facility] Comment on above: Order Comment: Speci men Type: BLOOD SPECIMEN Ordering Facility: [facility] Address: [address] [place] [address] Performed By: #### 2 777-1, 49400-2, 83036-6 #### [facility] CLIA [id number] [address] [place] [address] [place] Creatinine and Glomerular filtration rate.predicted panel (S/P/Bld) 126 mL/min/1.73m??? Normal >=60 [facility] Comment on above: Order Comment: Speci men Type: BLOOD SPECIMEN Ordering Facility: [facility] Address: [address] [place] [address] Result Comment: Lor mated Glomerular Filtration Rate [...] Performed By: #### 2 777-1, , #### [facility] CLIA [id number] [address] [address] [place] Glucose [Mass/Vol] 79 mg/dL Normal 74-99 [facility] Comment on above: Order Comment: Sana zuñiga Type: BLOOD SPECIMEN Ordering Facility: [facility] Address: [address] [place] [address] Result Comment: The [place] [employer] (ADA) provides guidance for cutoff [...] Standards of Medical Care in Diabetes 2016, [place] [employer]. Diabetes Care. 2016.39(Suppl 1). Performed By: #### 2 777-1, , #### [facility] CLIA [id number] [address] [place] [address] [place] Potassium [Moles/Vol] 3.6 mmol/L Low 3.7-5.1 [facility] Comment on above: Order Comment: Sana zuñiga Type: BLOOD SPECIMEN Ordering Facility: [facility] Address: [address] [place] [address] Performed By: #### 2 777-1, 05532-7, #### [facility] CLIA [id number] [address] [place] [id number] [place] Sodium [Moles/Vol] 145 mmol/L High 136-144 [facility] Comment on above: Order Comment: Speci men Type: BLOOD SPECIMEN Ordering Facility: [facility] Address: [address] [place] [address] Performed By: #### 2 777-1, 30733-0, #### [facility] CLIA [id number] [address] [place] [address] [place] Urea nitrogen [Mass/Vol] 4 mg/dL Low 9-24 [facility] Comment on above: Order Comment: Speci men Type: BLOOD SPECIMEN Ordering Facility: [facility] Address: [address] [place] [address] Performed By: #### 2 777-1, 52402-9, #### [facility] CLIA [id number] [address] [place] [address] [place] CBC panel Auto (Bld)on 11-03 Erythrocyte distribution width (RBC) [Ratio] 14.3 % Normal 11.5-15.0 [facility] Comment on above: Order Comment: Speci men Type: BLOOD SPECIMEN Ordering Facility: [facility] Address: [address] [place] [address] Performed By: #### 2 777-1, , #### [facility] CLIA [id number] [address] [place] [address] [place] Hematocrit (Bld) [Volume fraction] 33.4 % Low 39.0-51.0 [facility] Comment on above: Order Comment: Speci men Type: BLOOD SPECIMEN Ordering Facility: [facility] Address: [address] [place] [address] Performed By: #### 2 777-1, 63030-6, #### [facility] CLIA [id number] [address] [place] [address] [place] Hemoglobin (Bld) [Mass/Vol] 10.5 g/dL Low 13.0-17.0 [facility] Comment on above: Order Comment: Speci men Type: BLOOD SPECIMEN Ordering Facility: [facility] Address: [address] [place] [address] Performed By: #### 2 777-1, 05332-8, #### [facility] CLIA [id number] [address] [place] [address] [place] MCH (RBC) [Entitic mass] 26.4 pg Normal 26.0-34.0 [facility] Comment on above: Order Comment: Speci men Type: BLOOD SPECIMEN Ordering Facility: [facility] Address: [address] [place] [address] Performed By: #### 2 777-1, 27381-5, #### [facility] CLIA [id number] [address] [place] [address] [place] MCHC (RBC) [Mass/Vol] 31.4 g/dL Normal 30.5-36.0 [facility] Comment on above: Order Comment: Speci men Type: BLOOD SPECIMEN Ordering Facility: [facility] Address: [address] [place] [address] Performed By: #### 2 777-1, , #### [facility] CLIA [id number] [address] [place] [address] [place] MCV (RBC) [Entitic vol] 84.1 fL Normal 80.0-100.0 [facility] Comment on above: Order Comment: Speci men Type: BLOOD SPECIMEN Ordering Facility: [facility] Address: [address] [place] [address] Performed By: #### 2 777-1, 27733-8, #### [facility] CLIA [id number] [address] [place] [address] [place] Nucleated RBC (Bld) [#/Vol] 10*3/uL Normal <0.01 [facility] Comment on above: Order Comment: Speci men Type: BLOOD SPECIMEN Ordering Facility: [facility] Address: [address] [place] [address] Performed By: #### 2 777-1, 01621-4, #### [facility] CLIA [id number] [address] [place] [address] [place] Platelet mean volume (Bld) [Entitic vol] 8.9 fL Low 9.0-12.7 [facility] Comment on above: Order Comment: Speci men Type: BLOOD SPECIMEN Ordering Facility: [facility] Address: [address] [place] [address] Performed By: #### 2 777-1, 54620-3, #### [facility] CLIA [id number] [address] [place] [address] [place] Platelets (Bld) [#/Vol] 242 10*3/uL Normal 150-400 [facility] Comment on above: Order Comment: Speci men Type: BLOOD SPECIMEN Ordering Facility: [facility] Address: [address] [place] [address] Performed By: #### 2 777-1, 74287-8, #### [facility] CLIA [id number] [address] [place] [address] [place] RBC (Bld) [#/Vol] 3.97 10*6/uL Low 4.20-6.00 [facility] Comment on above: Order Comment: Speci men Type: BLOOD SPECIMEN Ordering Facility: [facility] Address: [address] [place] [address] Performed By: #### 2 777-1, 09200-0, #### [facility] CLIA [id number] [address] [place] [address] [place] WBC (Bld) [#/Vol] 9.36 10*3/uL Normal 3.70-11.00 [facility] Comment on above: Order Comment: Akbardeshawn zuñiga Type: BLOOD SPECIMEN Ordering Facility: [facility] Address: [address] [place] [address] Performed By: #### 2 777-1, 73366-5, #### [facility] CLIA [id number] [address] [place] [address] [place] Magnesium SerPl-mCncon 11-03 Magnesium [Mass/Vol] 2.0 mg/dL Normal 1.7-2.3 [facility] Comment on above: Order Comment: Sana yogesh Type: BLOOD SPECIMEN Ordering Facility: [facility] Address: [address] [place] [address] Performed By: #### 2 777-1, 74746-4, #### [facility] CLIA [id number] [address] [place] [address] [place] NUTRITIONon 11-04-2023 NUTRITION HNO ID: [id number] Author: SAURABH VAZQUEZ DTR Service: Nutrition Therapy Author Type: Glass Mould Cleaner Type: Nutrition Filed: 11/04/2023 14:35 Note Text: NUTRITION THERAPY [employer] AGENT NOTE SERVICE DATE: 11/04/2023 SERVICE TIME: 1030 Visit Type: Length of Stay Evaluation Goals Met: Not Met Will monitor for diet advancement and nutritional needs as able. Plan of Care: Follow-Up: [facility] Reassessment Nursing Admission Assessment Malnutrition [...] November 04, 2023 TIME: 2:25 PM Normal [facility] Phosphate SerPl-mCncon 11-03 Phosphate [Mass/Vol] 2.6 mg/dL Low 2.7-4.8 [facility] Comment on above: Order Comment: Speci men Type: BLOOD SPECIMEN Ordering Facility: [facility] Address: [address] [place] [address] Performed By: #### 2 777-1, 49788-8, 37244-3 #### [facility] CLIA [id number] [address] [place] [address] [place] Valproate Free SerPl-mCncon 11-04-2023 Valproate Free [Mass/Vol] 11.3 ug/mL Normal 4.0-30.0 [facility] Comment on above: Order Comment: Speci men Type: BLOOD SPECIMENOrdering Facility: [facility] Address: [address] [place] [address] Result Comment: Refe rence ranges and high/low indicator flags are provided as general guidelines only. The treating physician must determine appropriate target levels/dosing based on the specific clinical situation. This test was developed and its performance characteristics determined by [facility]'s Nilay Sh[facility] Pathology and Laboratory Medicine [place] ([facility]). It has not been cleared or approved by the FDA. -[facility] is regulated under CLIA as qualified to perform high-complexity testing. This test is used for clinical purposes. It should not be regarded as investigational or for research. Performed By: #### 4 087-3 ####[facility] [id number] [place] [address] [place] Valproate SerPl-mCncon 11-03 Valproate [Mass/Vol] 49.2 ug/mL Low 50.0-100.0 [facility] Comment on above: Order Comment: Speci men Type: BLOOD SPECIMEN Ordering Facility: [facility] Address: [address] [place] [address] Result Comment: Refe rence ranges and high/low indicator flags are provided as general guidelines only. The treating physician must determine appropriate target levels/dosing based on the specific clinical situation. Performed By: #### 2 4321-2, 77333-5, 2777-1 #### [facility] CLIA [id number] [address] [place] [address] [place] Basic metabolic 2000 panelon 11-03-2023 Anion gap [Moles/Vol] 11 mmol/L Normal 9-18 [facility] Comment on above: Order Comment: Speci men Type: BLOOD SPECIMEN Ordering Facility: [facility] Address: [address] [place] [address] Performed By: #### 2 777-1, 33239-3, #### [facility] CLIA [id number] [address] [place] [address] [place] Calcium [Mass/Vol] 7.7 mg/dL Low 8.5-10.2 [facility] Comment on above: Order Comment: Speci men Type: BLOOD SPECIMEN Ordering Facility: [facility] Address: [address] [place] [address] Performed By: #### 2 777-1, 36194-3, #### [facility] CLIA [id number] [address] [place] [address] [place] Chloride [Moles/Vol] 112 mmol/L High 97-105 [facility] Comment on above: Order Comment: Speci men Type: BLOOD SPECIMEN Ordering Facility: [facility] Address: [address] [place] [address] Performed By: #### 2 777-1, 19021-2, #### [facility] CLIA [id number] [address] [place], [place] [address] [place] CO2 [Moles/Vol] 22 mmol/L Normal 22-30 [facility] Comment on above: Order Comment: Akbari yogesh Type: BLOOD SPECIMEN Ordering Facility: [facility] Address: [address] [place] [address] Performed By: #### 2 777-1, 54741-2, #### [facility] CLIA [id number] [address] [place] [address] [place] Creatinine [Mass/Vol] 0.68 mg/dL Low 0.73-1.22 [facility] Comment on above: Order Comment: Speci men Type: BLOOD SPECIMEN Ordering Facility: [facility] Address: [address] [place] [address] Performed By: #### 2 777-1, , #### [facility] CLIA [id number] [address] [place] [address] [place] Creatinine and Glomerular filtration rate.predicted panel (S/P/Bld) 127 mL/min/1.73m??? Normal >=60 [facility] Comment on above: Order Comment: Sana zuñiga Type: BLOOD SPECIMEN Ordering Facility: [facility] Address: [address] [place] [address] Result Comment: Lor mated Glomerular Filtration Rate [...] Performed By: #### 2 777-1, , #### [facility] CLIA [id number] [address] [place] [address] [place] Glucose [Mass/Vol] 85 mg/dL Normal 74-99 [facility] Comment on above: Order Comment: Akbari men Type: BLOOD SPECIMEN Ordering Facility: [facility] Address: [facility] [place] [address] Result Comment: The [place] [employer] (ADA) provides guidance for cutoff [...] Standards of Medical Care in Diabetes 2016, [place] [employer]. Diabetes Care. 2016.39(Suppl 1). Performed By: #### 2 777-1, 99813-0, #### [facility] CLIA [id number] [address] [place] [address] [place] Potassium [Moles/Vol] 3.4 mmol/L Low 3.7-5.1 [facility] Comment on above: Order Comment: Speci men Type: BLOOD SPECIMEN Ordering Facility: [facility] Address: [address] [place] [address] Performed By: #### 2 777-1, , #### [facility] CLIA [id number] [address] [place] [address] [place] Sodium [Moles/Vol] 145 mmol/L High 136-144 [facility] Comment on above: Order Comment: Speci men Type: BLOOD SPECIMEN Ordering Facility: [facility] Address: [address] [place] [address] Performed By: #### 2 777-1, , #### [facility] CLIA [id number] [address] [place] [address] [place] Urea nitrogen [Mass/Vol] 5 mg/dL Low 9-24 [facility] Comment on above: Order Comment: Speci men Type: BLOOD SPECIMEN Ordering Facility: [facility] Address: [address] [place] [address] Performed By: #### 2 777-1, 04137-8, 34867-3 #### [facility] CLIA [id number] [address] [place] [address] [place] CBC W Auto Differential pane l (Bld)on 11-03-2023 Basophils (Bld) [#/Vol] 10*3/uL Normal <0.11 [facility] Comment on above: Order Comment: Speci men Type: BLOOD SPECIMEN Ordering Facility: [facility] Address: [address] [place] [address] Performed By: #### 5 7021-8 #### [facility] CLIA [id number] [address] [place] [address] [place] Basophils/100 WBC (Bld) 0.3 % Normal [facility] Comment on above: Order Comment: Speci men Type: BLOOD SPECIMEN Ordering Facility: [facility] Address: [address] [place] [address] Performed By: #### 5 7021-8 #### [facility] CLIA [id number] [address] [place] [address] [place] Differential cell count method Nom (Bld) Auto Normal [facility] Comment on above: Order Comment: Speci men Type: BLOOD SPECIMEN Ordering Facility: [facility] Address: [address] [place] [address] Performed By: #### 5 7021-8 #### [facility] CLIA [id number] [address] [place] [address] [place] Eosinophils (Bld) [#/Vol] 0.25 10*3/uL Normal <0.46 [facility] Comment on above: Order Comment: Speci men Type: BLOOD SPECIMEN Ordering Facility: [facility] Address: [address] [place] [address] Performed By: #### 5 7021-8 #### [facility] CLIA [id number] [address] [place] [address] [place] Eosinophils/100 WBC (Bld) 3.1 % Normal [facility] Comment on above: Order Comment: Speci men Type: BLOOD SPECIMEN Ordering Facility: [facility] Address: [address] [place] [address] Performed By: #### 5 7021-8 #### [facility] CLIA [id number] [address] [place] [address] [place] Erythrocyte distribution width (RBC) [Ratio] 13.7 % Normal 11.5-15.0 [facility] Comment on above: Order Comment: Speci men Type: BLOOD SPECIMEN Ordering Facility: [facility] Address: [address] [place] [address] Performed By: #### 5 7021-8 #### [facility] CLIA [id number] [address] [place] [address] [place] Hematocrit (Bld) [Volume fraction] 29.9 % Low 39.0-51.0 [facility] Comment on above: Order Comment: Speci men Type: BLOOD SPECIMEN Ordering Facility: [facility] Address: [address] [place] [address] Performed By: #### 5 7021-8 #### [facility] CLIA [id number] [address] [place] [address] [place] Hemoglobin (Bld) [Mass/Vol] 9.4 g/dL Low 13.0-17.0 [facility] Comment on above: Order Comment: Speci men Type: BLOOD SPECIMEN Ordering Facility: [facility] Address: [address] [place] [address] Performed By: #### 5 7021-8 #### [facility] CLIA [id number] [address] [place] [address] [place] Immature granulocytes (Bld) [#/Vol] 0.11 10*3/uL High <0.10 [facility] Comment on above: Order Comment: Speci men Type: BLOOD SPECIMEN Ordering Facility: [facility] Address: [address] [place] [address] Performed By: #### 5 7021-8 #### [facility] CLIA [id number] [address] [place] [address] [place] Immature granulocytes/100 WBC (Bld) 1.4 % Normal [facility] Comment on above: Order Comment: Speci men Type: BLOOD SPECIMEN Ordering Facility: [facility] Address: [address] [place] [address] Performed By: #### 5 7021-8 #### [facility] CLIA [id number] [address] [place] [address] [place] Lymphocytes (Bld) [#/Vol] 2.03 10*3/uL Normal 1.00-4.00 [facility] Comment on above: Order Comment: Speci men Type: BLOOD SPECIMEN Ordering Facility: [facility] Address: [address] [place] [address] Performed By: #### 5 7021-8 #### [facility] CLIA [id number] [address] [place] [address] [place] Lymphocytes/100 WBC (Bld) 25.4 % Normal [facility] Comment on above: Order Comment: Speci men Type: BLOOD SPECIMEN Ordering Facility: [facility] Address: [address] [place] [address] Performed By: #### 5 7021-8 #### [facility] CLIA [id number] [address] [place] [address] [place] MCH (RBC) [Entitic mass] 26.5 pg Normal 26.0-34.0 [facility] Comment on above: Order Comment: Speci men Type: BLOOD SPECIMEN Ordering Facility: [facility] Address: [address] [place] [address] Performed By: #### 5 7021-8 #### [facility] CLIA [id number] [address] [place] [address] [place] MCHC (RBC) [Mass/Vol] 31.4 g/dL Normal 30.5-36.0 [facility] Comment on above: Order Comment: Speci men Type: BLOOD SPECIMEN Ordering Facility: [facility] Address: [address] [place] [address] Performed By: #### 5 7021-8 #### [facility] CLIA [id number] [address] [place] [address] [place] MCV (RBC) [Entitic vol] 84.2 fL Normal 80.0-100.0 [facility] Comment on above: Order Comment: Speci men Type: BLOOD SPECIMEN [facility] [facility] Address: [address] [place] [address] Performed By: #### 5 7021-8 #### [facility] CLIA [id number] [address] [place] [address] [place] Monocytes (Bld) [#/Vol] 0.62 10*3/uL Normal <0.87 [facility] Comment on above: Order Comment: Speci men Type: BLOOD SPECIMEN Ordering Facility: [facility] Address: [address] [place] [address] Performed By: #### 5 7021-8 #### [facility] CLIA [id number] [address] [place] [address] [place] Monocytes/100 WBC (Bld) 7.8 % Normal [facility] Comment on above: Order Comment: Speci men Type: BLOOD SPECIMEN Ordering Facility: [facility] Address: [address] [place] [address] Performed By: #### 5 7021-8 #### [facility] CLIA [id number] [address] [place] [address] [place] Neutrophils (Bld) [#/Vol] 4.96 10*3/uL Normal 1.45-7.50 [facility] Comment on above: Order Comment: Speci men Type: BLOOD SPECIMEN Ordering Facility: [facility] Address: [address] [place] [address] Performed By: #### 5 7021-8 #### [facility] CLIA [id number] [address] [place] [address] [place] Neutrophils/100 WBC (Bld) 62.0 % Normal [facility] Comment on above: Order Comment: Speci men Type: BLOOD SPECIMEN Ordering Facility: [facility] Address: [address] [place] [address] Performed By: #### 5 7021-8 #### [facility] CLIA [id number] [address] [place] [address] [place] Nucleated RBC (Bld) [#/Vol] 10*3/uL Normal <0.01 [facility] Comment on above: Order Comment: Speci men Type: BLOOD SPECIMEN Ordering Facility: [facility] Address: [address] [place] [address] Performed By: #### 5 7021-8 #### [facility] CLIA [id number] [address] [place] [address] [place] Nucleated RBC/100 WBC (Bld) [Ratio] 0.0 /100 WBC Normal [facility] Comment on above: Order Comment: Speci men Type: BLOOD SPECIMEN Ordering Facility: [facility] Address: [address] [place] [address] Performed By: #### 5 7021-8 #### [facility] CLIA [id number] [address] [place] [address] [place] Platelet mean volume (Bld) [Entitic vol] 9.3 fL Normal 9.0-12.7 [facility] Comment on above: Order Comment: Speci men Type: BLOOD SPECIMEN Ordering Facility: [facility] Address: [address] [place] [address] Performed By: #### 5 7021-8 #### [facility] CLIA [id number] [address] [place] [address] [place] Platelets (Bld) [#/Vol] 208 10*3/uL Normal 150-400 [facility] Comment on above: Order Comment: Speci men Type: BLOOD SPECIMEN Ordering Facility: [facility] Address: [address] [place] [address] Performed By: #### 5 7021-8 #### [facility] CLIA [id number] [address] [place] [address] [place] RBC (Bld) [#/Vol] 3.55 10*6/uL Low 4.20-6.00 [facility] Comment on above: Order Comment: Speci men Type: BLOOD SPECIMEN Ordering Facility: [facility] Address: [address] [place] [address] Performed By: #### 5 7021-8 #### [facility] CLIA [id number] [address] [place] [address] [place] WBC (Bld) [#/Vol] 7.99 10*3/uL Normal 3.70-11.00 [facility] Comment on above: Order Comment: Speci men Type: BLOOD SPECIMEN Ordering Facility: [facility] Address: [address] [place] [address] Performed By: #### 5 7021-8 #### [facility] CLIA [id number] [address] [place] [address] [place] CONSULTon 11-03-2023 CONSULT HNO ID: [id number] Author: CK HU MD Service: Neurology General [...] is brother, Delbert. Patient lives in a halfway at baseline. Per information written on board [...] (DULCOLAX) 10 mg RECTAL DAILY phenol 1 [place] (CHLORASEPTIC) 1 [place] MUCOUS MEMBRANE (TOPICAL MOUTH AND THROAT) q 2 H PRN Or benzocaine-menthol 1 Lozenge (CHLORASEPTIC) 1 Lozenge MUCOUS MEMBRANE (TOPICAL MOUTH AND THROAT) q 2 H PRN clomiPRAMINE 75 mg cap(s) (ANAFRANIL) 75 mg ORAL AT BEDTIME lithium carbonate 300 mg cap(s) (ESKALITH) 300 mg ORAL BID sertraline (ZOLOFT (more content not included)... Normal [facility] CT BRAIN WO IVCONon 11-03-[address] BRAIN WO IVCON * * *Final Report* * * DATE OF EXAM: Nov 03 2023 7:42PM [facility] 0[facility] - CT BRAIN WO IVCON / [...] reduction techniques were required COMPARISON: None. RESULT: Block Tester (topogram) images: No additional findings. Post-operative change: [...] No clear evidence of an acute abnormality. Product Craftsman: [email or web address] Transcribe Date/Time: Nov 03 2023 7:43P Dictated by : HERMAN DOWD MD This examination was interpreted and the report reviewed and electronically signed by: HERMNA DOWD MD on Nov 03 2023 7:44PM EST [id number] Normal [facility] [place], Bld SerPl-sCncon [place] [Moles/Vol] 0.5 mmol/L Low 0.6-1.2 [facility] Comment on above: Order Comment: Sana zuñiga Type: BLOOD SPECIMEN Ordering Facility: [facility] Address: [address] [place] [address] Result Comment: Refe rence ranges and high/low indicator flags are provided as general guidelines only. The treating physician must determine appropriate target levels/dosing based on the specific clinical situation. Performed By: #### 1 4334-7, 4086-5 #### [facility] CLIA [id number] [address] [place] [address] [place] Magnesium SerPl-mCncon 11-02 Magnesium [Mass/Vol] 2.2 mg/dL Normal 1.7-2.3 [facility] Comment on above: Order Comment: Sana zuñiga Type: BLOOD SPECIMEN Ordering Facility: [facility] Address: [address] [place] [address] Performed By: #### 2 777-1, 01323-7, 07458-9 #### [facility] CLIA [id number] [address] [place] [address] [place] Phosphate SerPl-mCncon 11-02 Phosphate [Mass/Vol] 2.5 mg/dL Low 2.7-4.8 [facility] Comment on above: Order Comment: Specdeshawn zuñiga Type: BLOOD SPECIMEN Ordering Facility: [facility] Address: [address] [place] [address] Performed By: #### 2 777-1, 06233-3, 22664-2 #### [facility] CLIA [id number] [address] [place] [address] [place] THERAPY NTon 11-03-2023 THERAPY NT HNO ID: [id number] Author: ANKITA BLACKBURN PT, DPT Service: Physical Therapy Author Type: Physical Therapist Type: Therapy (PT/OT/Speech/Resp) Filed: 11/03/2023 13:48 Note Text: PHYSICAL THERAPY MISSED VISIT SERVICE DATE: 11/03/2023 SERVICE TIME: 1347 ROOM: [place] [address] Patient not seen due to Patient Not Available. Another service at bedside upon time of arrival x2 attempts. Will follow up as able/appropriate. SIGNATURE: Ankita Blackburn PT, DPT PATIENT NAME: Johnny Devine DATE: November 03, 2023 TIME: 1:48 PM Normal [facility] Valproate SerPl-mCncon 11-02 Valproate [Mass/Vol] 53.0 ug/mL Normal 50.0-100.0 [facility] Comment on above: Order Comment: Sana zuñiga Type: BLOOD SPECIMEN Ordering Facility: [facility] Address: [address] [place] [address] Result Comment: Refe rence ranges and high/low indicator flags are provided as general guidelines only. The treating physician must determine appropriate target levels/dosing based on the specific clinical situation. Performed By: #### 1 4334-7, 4086-5 #### [facility] CLIA [id number] [address] [place] [address] [place] Basic metabolic 2000 panelon 11-02-2023 Anion gap [Moles/Vol] 8 mmol/L Low 9-18 [facility] Comment on above: Order Comment: Speci men Type: BLOOD SPECIMEN Ordering Facility: [facility] Address: [address] [place] [address] Performed By: #### 2 777-1, 97572-8, #### [facility] CLIA [id number] [address] [place] [address] [place] Calcium [Mass/Vol] 7.7 mg/dL Low 8.5-10.2 [facility] Comment on above: Order Comment: Speci men Type: BLOOD SPECIMEN Ordering Facility: [facility] Address: [address] [place] [address] Performed By: #### 2 777-1, 42407-9, #### [facility] CLIA [id number] [address] [place] [address] [place] Chloride [Moles/Vol] 109 mmol/L High 97-105 [facility] Comment on above: Order Comment: Speci men Type: BLOOD SPECIMEN Ordering Facility: [facility] Address: [address] [place] [address] Performed By: #### 2 777-1, 30621-6, #### [facility] CLIA [id number] [address] [place] [address] [place] CO2 [Moles/Vol] 24 mmol/L Normal 22-30 [facility] Comment on above: Order Comment: Speci men Type: BLOOD SPECIMEN Ordering Facility: [facility] Address: [address] [place] [address] Performed By: #### 2 777-1, 75602-4, #### [facility] CLIA [id number] [address] [place] [address] [place] Creatinine [Mass/Vol] 0.66 mg/dL Low 0.73-1.22 [facility] Comment on above: Order Comment: Speci men Type: BLOOD SPECIMEN Ordering Facility: [facility] Address: [address] [place] [address] Performed By: #### 2 777-1, 77749-2, #### [facility] CLIA [id number] [address] [place] [address] [place] Creatinine and Glomerular filtration rate.predicted panel (S/P/Bld) 129 mL/min/1.73m??? Normal >=60 [facility] Comment on above: Order Comment: Sana zuñiga Type: BLOOD SPECIMEN Ordering Facility: [facility] Address: [address] [place] [address] Result Comment: Lor mated Glomerular Filtration Rate [...] actual GFR. Performed By: #### 2 777-1, 98042-2, #### [facility] CLIA [id number] [address] [place] [address] [place] Glucose [Mass/Vol] 109 mg/dL High 74-99 [facility] Comment on above: Order Comment: Sana zuñiga Type: BLOOD SPECIMEN Ordering Facility: [facility] Address: [address] [place] [address] Result Comment: The [place] [employer] (ADA) provides guidance for cutoff [...] Standards of Medical Care in Diabetes 2016, [place] [employer]. Diabetes Care. 2016.39(Suppl 1). Performed By: #### 2 777-1, 02820-4, #### [facility] CLIA [id number] [address] [place] [address] [place] Potassium [Moles/Vol] 3.5 mmol/L Low 3.7-5.1 [facility] Comment on above: Order Comment: Speci men Type: BLOOD SPECIMEN Ordering Facility: [facility] Address: [address] [place] [address] Performed By: #### 2 777-1, 11645-6, #### [facility] CLIA [id number] [address] [place] [address] [place] Sodium [Moles/Vol] 141 mmol/L Normal 136-144 [facility] Comment on above: Order Comment: Speci men Type: BLOOD SPECIMEN Ordering Facility: [facility] Address: [address] [place] [address] Performed By: #### 2 777-1, , #### [facility] CLIA [id number] [address] [place] [address] [place] Urea nitrogen [Mass/Vol] 7 mg/dL Low 9-24 [facility] Comment on above: Order Comment: Speci men Type: BLOOD SPECIMEN Ordering Facility: [facility] Address: [address] [place] [address] Performed By: #### 2 777-1, 18221-1, #### [facility] CLIA [id number] [address] [place], [place] [address] [place] CBC W Auto Differential pane l (Bld)on 11-02-2023 Basophils (Bld) [#/Vol] 0.04 10*3/uL Normal <0.11 [facility] Comment on above: Order Comment: Speci men Type: BLOOD SPECIMEN Ordering Facility: [facility] Address: [address] [place] [address] Performed By: #### 2 4321-2, , 2776-08 #### [facility] CLIA [id number] [address] [place] [address] [place] Basophils/100 WBC (Bld) 0.5 % Normal [facility] Comment on above: Order Comment: Speci men Type: BLOOD SPECIMEN Ordering Facility: [facility] Address: [address] [place] [address] Performed By: #### 2 4321-2, , 2776-08 #### [facility] CLIA [id number] [address] [place] [address] [place] Differential cell count method Nom (Bld) Auto Normal [facility] Comment on above: Order Comment: Speci men Type: BLOOD SPECIMEN Ordering Facility: [facility] Address: [address] [place] [address] Performed By: #### 2 4320-2, , 2776-08 #### [facility] CLIA [id number] [address] [place] [address] [place] Eosinophils (Bld) [#/Vol] 0.24 10*3/uL Normal <0.46 [facility] Comment on above: Order Comment: Speci men Type: BLOOD SPECIMEN Ordering Facility: [facility] Address: [address] [place] [address] Performed By: #### 2 4320-2, , 2776-08 #### [facility] CLIA [id number] [address] [place] [address] [place] Eosinophils/100 WBC (Bld) 3.0 % Normal [facility] Comment on above: Order Comment: Speci men Type: BLOOD SPECIMEN Ordering Facility: [facility] Address: [address] [place] [address] Performed By: #### 2 4321-2, , 2776-08 #### [facility] CLIA [id number] [address] [place] [address] [place] Erythrocyte distribution width (RBC) [Ratio] 14.0 % Normal 11.5-15.0 [facility] Comment on above: Order Comment: Speci men Type: BLOOD SPECIMEN Ordering Facility: [facility] Address: [address] [place] [address] Performed By: #### 2 4321-2, , 2776-08 #### [facility] CLIA [id number] [address] [place] [address] [place] Hematocrit (Bld) [Volume fraction] 36.5 % Low 39.0-51.0 [facility] Comment on above: Order Comment: Speci men Type: BLOOD SPECIMEN Ordering Facility: [facility] Address: [address] [place] [address] Performed By: #### 2 4321-2, , 2776-08 #### [facility] CLIA [id number] [address] [place] [address] [place] Hemoglobin (Bld) [Mass/Vol] 11.2 g/dL Low 13.0-17.0 [facility] Comment on above: Order Comment: Speci men Type: BLOOD SPECIMEN Ordering Facility: [facility] Address: [address] [place] [address] Performed By: #### 2 4321-2, , 2776-08 #### [facility] CLIA [id number] [address] [place] [address] [place] Immature granulocytes (Bld) [#/Vol] 0.10 10*3/uL High <0.10 [facility] Comment on above: Order Comment: Speci men Type: BLOOD SPECIMEN Ordering Facility: [facility] Address: [address] [place] [address] Performed By: #### 2 4321-2, , 2776-08 #### [facility] CLIA [id number] [address] [place] [address] [place] Immature granulocytes/100 WBC (Bld) 1.3 % Normal [facility] Comment on above: Order Comment: Speci men Type: BLOOD SPECIMEN Ordering Facility: [facility] Address: [address] [place] [address] Performed By: #### 2 4321-2, , 2776-08 #### [facility] CLIA [id number] [address] [place] [address] [place] Lymphocytes (Bld) [#/Vol] 1.78 10*3/uL Normal 1.00-4.00 [facility] Comment on above: Order Comment: Speci men Type: BLOOD SPECIMEN Ordering Facility: [facility] Address: [address] [place] [address] Performed By: #### 2 432-2, , 2776-08 #### [facility] CLIA [id number] [address] [place] [address] [place] Lymphocytes/100 WBC (Bld) 22.3 % Normal [facility] Comment on above: Order Comment: Speci men Type: BLOOD SPECIMEN Ordering Facility: [facility] Address: [address] [place] [address] Performed By: #### 2 432-2, , 2776-08 #### [facility] CLIA [id number] [address] [place] [address] [place] MCH (RBC) [Entitic mass] 26.2 pg Normal 26.0-34.0 [facility] Comment on above: Order Comment: Speci men Type: BLOOD SPECIMEN Ordering Facility: [facility] Address: [address] [place] [address] Performed By: #### 2 4321-2, , 2776-08 #### [facility] CLIA [id number] [address] [place] [address] [place] MCHC (RBC) [Mass/Vol] 30.7 g/dL Normal 30.5-36.0 [facility] Comment on above: Order Comment: Speci men Type: BLOOD SPECIMEN Ordering Facility: [facility] Address: [address] [place] [address] Performed By: #### 2 4321-2, , 2776-08 #### [facility] CLIA [id number] [address] [place] [address] [place] MCV (RBC) [Entitic vol] 85.5 fL Normal 80.0-100.0 [facility] Comment on above: Order Comment: Speci men Type: BLOOD SPECIMEN Ordering Facility: [facility] Address: [address] [place] [address] Performed By: #### 2 4321-2, , 2776-08 #### [facility] CLIA [id number] [address] [place] [address] [place] Monocytes (Bld) [#/Vol] 0.58 10*3/uL Normal <0.87 [facility] Comment on above: Order Comment: Speci men Type: BLOOD SPECIMEN Ordering Facility: [facility] Address: [address] [place] [address] Performed By: #### 2 4321-2, , 2776-08 #### [facility] CLIA [id number] [address] [place] [address] [place] Monocytes/100 WBC (Bld) 7.3 % Normal [facility] Comment on above: Order Comment: Speci men Type: BLOOD SPECIMEN Ordering Facility: [facility] Address: [address] [place] [address] Performed By: #### 2 4321-2, , 2776-08 #### [facility] CLIA [id number] [address] [place] [address] [place] Neutrophils (Bld) [#/Vol] 5.24 10*3/uL Normal 1.45-7.50 [facility] Comment on above: Order Comment: Speci men Type: BLOOD SPECIMEN Ordering Facility: [facility] Address: [address] [place] [address] Performed By: #### 2 4321-2, , 2776-08 #### [facility] CLIA [id number] [address] [place] [address] [place] Neutrophils/100 WBC (Bld) 65.6 % Normal [facility] Comment on above: Order Comment: Speci men Type: BLOOD SPECIMEN Ordering Facility: [facility] Address: [address] [place] [address] Performed By: #### 2 4321-2, , 2776-08 #### [facility] CLIA [id number] [address] [place] [address] [place] Nucleated RBC (Bld) [#/Vol] 10*3/uL Normal <0.01 [facility] Comment on above: Order Comment: Speci men Type: BLOOD SPECIMEN Ordering Facility: [facility] Address: [address] [place] [address] Performed By: #### 2 4321-2, , 2776-08 #### [facility] CLIA [id number] [address] [place] [address] [place] Nucleated RBC/100 WBC (Bld) [Ratio] 0.0 /100 WBC Normal [facility] Comment on above: Order Comment: Speci men Type: BLOOD SPECIMEN Ordering Facility: [facility] Address: [address] [place] [address] Performed By: #### 2 4321-2, , 2776-08 #### [facility] CLIA [id number] [address] [place] [address] [place] Platelet mean volume (Bld) [Entitic vol] 9.7 fL Normal 9.0-12.7 [facility] Comment on above: Order Comment: Speci men Type: BLOOD SPECIMEN Ordering Facility: [facility] Address: [address] [place] [address] Performed By: #### 2 4321-2, , 2776-08 #### [facility] CLIA [id number] [address] [place] [address] [place] Platelets (Bld) [#/Vol] 199 10*3/uL Normal 150-400 [facility] Comment on above: Order Comment: Speci men Type: BLOOD SPECIMEN Ordering Facility: [facility] Address: [address] [place] [address] Performed By: #### 2 4321-2, , 2776-08 #### [facility] CLIA [id number] [address] [place] [address] [place] RBC (Bld) [#/Vol] 4.27 10*6/uL Normal 4.20-6.00 [facility] Comment on above: Order Comment: Speci men Type: BLOOD SPECIMEN Ordering Facility: [facility] Address: [address] [place] [address] Performed By: #### 2 4321-2, , 2776-08 #### [facility] CLIA [id number] [address] [place] [address] [place] WBC (Bld) [#/Vol] 7.98 10*3/uL Normal 3.70-11.00 [facility] Comment on above: Order Comment: Speci men Type: BLOOD SPECIMEN Ordering Facility: [facility] Address: [address] [place] [address] Performed By: #### 2 4321-2, , 2776-08 #### [facility] CLIA [id number] [address] [place], [place] [address] [place] Magnesium SerPl-ncon 11-01 Magnesium [Mass/Vol] 2.3 mg/dL Normal 1.7-2.3 [facility] Comment on above: Order Comment: Speci men Type: BLOOD SPECIMEN Ordering Facility: [facility] Address: [address] [place] [address] Performed By: #### 2 777-1, 31294-0, 86829-4 #### [facility] CLIA [id number] [address] [place] [address] [place] Phosphate SerPl-mCncon 11-01 Phosphate [Mass/Vol] 2.6 mg/dL Low 2.7-4.8 [facility] Comment on above: Order Comment: Speci men Type: BLOOD SPECIMEN Ordering Facility: [facility] Address: [address] [place] [place] [address] Performed By: #### 2 777-1, 56717-6, 09481-6 #### [facility] CLIA [id number] [address] [place] [address] [place] XR ABDOMEN 1V SPECIFYon [...] small bowel. Findings suggestive of improving ileus. Product Craftsman: [email or web address] Transcribe Date/Time: Nov 02 2023 11:50A Dictated by : VERONICA CARTER MD This examination was interpreted and the report reviewed and electronically signed by: VERONICA CARTER MD on Nov 02 2023 11:52AM EST [id number] N Normal [facility] Basic metabolic 2000 panelon 11-01-2023 Anion gap [Moles/Vol] 10 mmol/L Normal 9-18 [facility] Comment on above: Order Comment: Speci men Type: BLOOD SPECIMEN Ordering Facility: [facility] Address: [address] [place] [address] Performed By: #### 5 7021-8 #### [facility] CLIA [id number] [address] [place] [address] [place] Calcium [Mass/Vol] 7.9 mg/dL Low 8.5-10.2 [facility] Comment on above: Order Comment: Speci men Type: BLOOD SPECIMEN Ordering Facility: [facility] Address: [address] [place] [address] Performed By: #### 5 7021-8 #### [facility] CLIA [id number] [address] [place] [address] [place] Chloride [Moles/Vol] 114 mmol/L High 97-105 [facility] Comment on above: Order Comment: Speci men Type: BLOOD SPECIMEN Ordering Facility: [facility] Address: [address] [place] [address] Performed By: #### 5 7021-8 #### [facility] CLIA [id number] [address] [place] [address] [place] CO2 [Moles/Vol] 22 mmol/L Normal 22-30 [facility] Comment on above: Order Comment: Speci men Type: BLOOD SPECIMEN Ordering Facility: [facility] Address: [address] [place] [address] Performed By: #### 5 7021-8 #### [facility] CLIA [id number] [address] [place] [address] [place] Creatinine [Mass/Vol] 0.74 mg/dL Normal 0.73-1.22 [facility] Comment on above: Order Comment: Speci men Type: BLOOD SPECIMEN Ordering Facility: [facility] Address: [address] [place] [address] Performed By: #### 5 7021-8 #### [facility] CLIA [id number] [address] [place] [address] [place] Creatinine and Glomerular filtration rate.predicted panel (S/P/Bld) 124 mL/min/1.73m??? Normal >=60 [facility] Comment on above: Order Comment: Sana zuñiga Type: BLOOD SPECIMEN Ordering Facility: [facility] Address: [address] [place] [address] Result Comment: Lor mated Glomerular Filtration Rate [...] GFR. Performed By: #### 5 7021-8 #### [facility] CLIA [id number] [address] [place] [address] [place] Glucose [Mass/Vol] 98 mg/dL Normal 74-99 [facility] Comment on above: Order Comment: Sana zuñiga Type: BLOOD SPECIMEN Ordering Facility: [facility] Address: [address] [place] [address] Result Comment: The [place] [employer] (ADA) provides guidance for cutoff [...] Standards of Medical Care in Diabetes 2016, [place] [employer]. Diabetes Care. 2016.39(Suppl 1). Performed By: #### 5 7021-8 #### [facility] CLIA [id number] [address] [place] [address] [place] Potassium [Moles/Vol] 3.9 mmol/L Normal 3.7-5.1 [facility] Comment on above: Order Comment: Speci men Type: BLOOD SPECIMEN Ordering Facility: [facility] Address: [address] [place] [address] Performed By: #### 5 7021-8 #### [facility] CLIA [id number] [address] [place] [address] [place] Sodium [Moles/Vol] 146 mmol/L High 136-144 [facility] Comment on above: Order Comment: Speci men Type: BLOOD SPECIMEN Ordering Facility: [facility] Address: [address] [place] [address] Performed By: #### 5 7021-8 #### [facility] CLIA [id number] [address] [place] [address] [place] Urea nitrogen [Mass/Vol] 9 mg/dL Normal 9-24 [facility] Comment on above: Order Comment: Speci men Type: BLOOD SPECIMEN Ordering Facility: [facility] Address: [address] [place] [address] Performed By: #### 5 7021-8 #### [facility] CLIA [id number] [address] [place] [address] [place] CBC W Auto Differential pane l (Bld)on 11-01-2023 Basophils (Bld) [#/Vol] 10*3/uL Normal <0.11 [facility] Comment on above: Order Comment: Speci men Type: BLOOD SPECIMENOrdering Facility: [facility] Address: [address] [place] [address] Performed By: #### 5 7021-8 ####[facility] [id number] [place] [address] [place] Basophils/100 WBC (Bld) 0.3 % Normal [facility] Comment on above: Order Comment: Speci men Type: BLOOD SPECIMENOrdering Facility: [facility] Address: [address] [place] [address] Performed By: #### 5 7021-8 ####[facility] [id number] [place] [address] [place] Differential cell count method Nom (Bld) Auto Normal [facility] Comment on above: Order Comment: Speci men Type: BLOOD SPECIMENOrdering Facility: [facility] Address: [address] [place] [address] Performed By: #### 5 7021-8 ####[facility] [id number] [place] [address] [place] Eosinophils (Bld) [#/Vol] 0.23 10*3/uL Normal <0.46 [facility] Comment on above: Order Comment: Speci men Type: BLOOD SPECIMENOrdering Facility: [facility] Address: [address] [place] [address] Performed By: #### 5 7021-8 ####[facility] [id number] [place] [address] [place] Eosinophils/100 WBC (Bld) 3.0 % Normal [facility] Comment on above: Order Comment: Speci men Type: BLOOD SPECIMENOrdering Facility: [facility] Address: [address] [place] [address] Performed By: #### 5 7021-8 ####[facility] [id number] [place] [address] [place] Erythrocyte distribution width (RBC) [Ratio] 14.6 % Normal 11.5-15.0 [facility] Comment on above: Order Comment: Speci men Type: BLOOD SPECIMENOrdering Facility: [facility] Address: [address] [place] [address] Performed By: #### 5 7021-8 ####[facility] [id number] [place] [address] [place] Hematocrit (Bld) [Volume fraction] 28.6 % Low 39.0-51.0 [facility] Comment on above: Order Comment: Speci men Type: BLOOD SPECIMENOrdering Facility: [facility] Address: [address] [place] [address] Performed By: #### 5 7021-8 ####[facility] [id number] [place] [address] [place] Hemoglobin (Bld) [Mass/Vol] 9.0 g/dL Low 13.0-17.0 [facility] Comment on above: Order Comment: Speci men Type: BLOOD SPECIMENOrdering Facility: [facility] Address: [address] [place] [address] Performed By: #### 5 7021-8 ####[facility]IA [id number] [place] [address] [place] Immature granulocytes (Bld) [#/Vol] 0.05 10*3/uL Normal <0.10 [facility] Comment on above: Order Comment: Speci men Type: BLOOD SPECIMENOrdering Facility: [facility] Address: [address] [place] [address] Performed By: #### 5 7021-8 ####[facility]IA [id number] [place] [address] [place] Immature granulocytes/100 WBC (Bld) 0.7 % Normal [facility] Comment on above: Order Comment: Speci men Type: BLOOD SPECIMENOrdering Facility: [facility] Address: [address] [place] [address] Performed By: #### 5 7021-8 ####[facility]IA [id number] [place] [address] [place] Lymphocytes (Bld) [#/Vol] 1.86 10*3/uL Normal 1.00-4.00 [facility] Comment on above: Order Comment: Speci men Type: BLOOD SPECIMENOrdering Facility: [facility] Address: [address] [place] [address] Performed By: #### 5 7021-8 ####[facility] [id number] [place] [address] [place] Lymphocytes/100 WBC (Bld) 24.3 % Normal [facility] Comment on above: Order Comment: Speci men Type: BLOOD SPECIMENOrdering Facility: [facility] Address: [address] [place] [address] Performed By: #### 5 7021-8 ####[facility]IA [id number] [place] [address] [place] MCH (RBC) [Entitic mass] 26.8 pg Normal 26.0-34.0 [facility] Comment on above: Order Comment: Speci men Type: BLOOD SPECIMENOrdering Facility: [facility] Address: [address] [place] [address] Performed By: #### 5 7021-8 ####[facility]IA [id number] [place] [address] [place] MCHC (RBC) [Mass/Vol] 31.5 g/dL Normal 30.5-36.0 [facility] Comment on above: Order Comment: Speci men Type: BLOOD SPECIMENOrdering Facility: [facility] Address: [address] [place] [address] Performed By: #### 5 7021-8 ####[facility]IA [id number] [place] [address] [place] MCV (RBC) [Entitic vol] 85.1 fL Normal 80.0-100.0 [facility] Comment on above: Order Comment: Speci men Type: BLOOD SPECIMENOrdering Facility: [facility] Address: [address] [place] [address] Performed By: #### 5 7021-8 ####[facility] [id number] [place] [address] [place] Monocytes (Bld) [#/Vol] 0.62 10*3/uL Normal <0.87 [facility] Comment on above: Order Comment: Speci men Type: BLOOD SPECIMENOrdering Facility: [facility] Address: [address] [place] [address] Performed By: #### 5 7021-8 ####[facility] [id number] [place] [address] [place] Monocytes/100 WBC (Bld) 8.1 % Normal [facility] Comment on above: Order Comment: Speci men Type: BLOOD SPECIMENOrdering Facility: [facility] Address: [address] [place] [address] Performed By: #### 5 7021-8 ####[facility] [id number] [place] [address] [place] Neutrophils (Bld) [#/Vol] 4.87 10*3/uL Normal 1.45-7.50 [facility] Comment on above: Order Comment: Speci men Type: BLOOD SPECIMENOrdering Facility: [facility] Address: [address] [place] [address] Performed By: #### 5 7021-8 ####[facility] [id number] [place] [address] [place] Neutrophils/100 WBC (Bld) 63.6 % Normal [facility] Comment on above: Order Comment: Speci men Type: BLOOD SPECIMENOrdering Facility: [facility] Address: [address] [place] [address] Performed By: #### 5 7021-8 ####[facility] [id number] [place] [address] [place] Nucleated RBC (Bld) [#/Vol] 10*3/uL Normal <0.01 [facility] Comment on above: Order Comment: Speci men Type: BLOOD SPECIMENOrdering Facility: [facility] Address: [address] [place] [address] Performed By: #### 5 7021-8 ####[facility] [id number] [place] [address] [place] Nucleated RBC/100 WBC (Bld) [Ratio] 0.0 /100 WBC Normal [facility] Comment on above: Order Comment: Speci men Type: BLOOD SPECIMENOrdering Facility: [facility] Address: [address] [place] [address] Performed By: #### 5 7021-8 ####[facility] [id number] [place] [address] [place] Platelet mean volume (Bld) [Entitic vol] 9.6 fL Normal 9.0-12.7 [facility] Comment on above: Order Comment: Speci men Type: BLOOD SPECIMENOrdering Facility: [facility] Address: [address] [place] [address] Performed By: #### 5 7021-8 ####[facility]IA [id number] [place] [address] [place] Platelets (Bld) [#/Vol] 148 10*3/uL Low 150-400 [facility] Comment on above: Order Comment: Speci men Type: BLOOD SPECIMENOrdering Facility: [facility] Address: [address] [place] [address] Performed By: #### 5 7021-8 ####[facility] [id number] [place] [address] [place] RBC (Bld) [#/Vol] 3.36 10*6/uL Low 4.20-6.00 [facility] Comment on above: Order Comment: Speci men Type: BLOOD SPECIMENOrdering Facility: [facility] Address: [address] [place] [address] Performed By: #### 5 7021-8 ####[facility]IA [id number] [place] [address] [place] WBC (Bld) [#/Vol] 7.65 10*3/uL Normal 3.70-11.00 [facility] Comment on above: Order Comment: Speci men Type: BLOOD SPECIMENOrdering Facility: [facility] Address: [address] [place] [address] Performed By: #### 5 7021-8 ####[facility]IA [id number] [place] [address] [place] Magnesium SerPl-mCncon 10-31 Magnesium [Mass/Vol] 2.4 mg/dL High 1.7-2.3 [facility] Comment on above: Order Comment: Speci men Type: BLOOD SPECIMEN Ordering Facility: [facility] Address: [address] [place] [address] Performed By: #### 5 7021-8 #### [facility] CLIA [id number] [address] [place] [address] [place] Phosphate SerPl-mCncon 10-31 Phosphate [Mass/Vol] 2.3 mg/dL Low 2.7-4.8 [facility] Comment on above: Order Comment: Speci men Type: BLOOD SPECIMEN Ordering Facility: [facility] Address: [address] [place] [address] Performed By: #### 5 7021-8 #### [facility] CLIA [id number] [address] [place] [address] [place] Basic metabolic 2000 panelon 10-31-2023 Anion gap [Moles/Vol] 10 mmol/L Normal 9-18 [facility] Comment on above: Order Comment: Speci men Type: BLOOD SPECIMEN Ordering Facility: [facility] Address: [address] [place] [address] Performed By: #### 2 777-1, 14156-6, #### [facility] CLIA [id number] [address] [place] [address] [place] Calcium [Mass/Vol] 7.8 mg/dL Low 8.5-10.2 [facility] Comment on above: Order Comment: Speci men Type: BLOOD SPECIMEN Ordering Facility: [facility] Address: [address] [place] [address] Performed By: #### 2 777-1, 73278-7, #### [facility] CLIA [id number] [address] [place] [address] [place] Chloride [Moles/Vol] 115 mmol/L High 97-105 [facility] Comment on above: Order Comment: Speci men Type: BLOOD SPECIMEN Ordering Facility: [facility] Address: [address] [place] [address] Performed By: #### 2 777-1, 13013-7, #### [facility] CLIA [id number] [address] [place] [address] [place] CO2 [Moles/Vol] 23 mmol/L Normal 22-30 [facility] Comment on above: Order Comment: Speci men Type: BLOOD SPECIMEN Ordering Facility: [facility] Address: [address] [place] [address] Performed By: #### 2 777-1, 34026-3, #### [facility] CLIA [id number] [address] [place] [address] [place] Creatinine [Mass/Vol] 0.72 mg/dL Low 0.73-1.22 [facility] Comment on above: Order Comment: Speci men Type: BLOOD SPECIMEN Ordering Facility: [facility] Address: [address] [place] [address] Performed By: #### 2 777-1, 68524-3, #### [facility] CLIA [id number] [address] [place] [address] [place] Creatinine and Glomerular filtration rate.predicted panel (S/P/Bld) 125 mL/min/1.73m??? Normal >=60 [facility] Comment on above: Order Comment: Sana zuñiga Type: BLOOD SPECIMEN Ordering Facility: [facility] Address: [address] [place] [address] Result Comment: Lor mated Glomerular Filtration Rate [...] actual GFR. Performed By: #### 2 777-1, 73606-0, #### [facility] CLIA [id number] [address] [place] [address] [place] Glucose [Mass/Vol] 93 mg/dL Normal 74-99 [facility] Comment on above: Order Comment: Sana zuñiga Type: BLOOD SPECIMEN Ordering Facility: [facility] Address: [address] [place] [address] Result Comment: The [place] Diabetes [employer] (ADA) provides guidance for cutoff [...] Standards of Medical Care in Diabetes 2016, [place] [employer]. Diabetes Care. 2016.39(Suppl 1). Performed By: #### 2 777-1, 50147-2, #### [facility] CLIA [id number] [address] [place] [address] [place] Potassium [Moles/Vol] 3.9 mmol/L Normal 3.7-5.1 [facility] Comment on above: Order Comment: Speci men Type: BLOOD SPECIMEN Ordering Facility: [facility] Address: [address] [place] [address] Performed By: #### 2 777-1, 95650-9, #### [facility] CLIA [id number] [address] [place] [address] [place] Sodium [Moles/Vol] 148 mmol/L High 136-144 [facility] Comment on above: Order Comment: Speci men Type: BLOOD SPECIMEN Ordering Facility: [facility] Address: [address] [place] [address] Performed By: #### 2 777-1, 67872-5, #### [facility] CLIA [id number] [address] [place] [address] [place] Urea nitrogen [Mass/Vol] 8 mg/dL Low 9-24 [facility] Comment on above: Order Comment: Speci men Type: BLOOD SPECIMEN Ordering Facility: [facility] Address: [address] [place] [address] Performed By: #### 2 777-1, 86548-6, #### [facility] CLIA [id number] [address] [place] [address] [place] CBC W Auto Differential pane l (Bld)on 10-31-2023 Basophils (Bld) [#/Vol] 10*3/uL Normal <0.11 [facility] Comment on above: Order Comment: Speci men Type: BLOOD SPECIMEN Ordering Facility: [facility] Address: [address] [place] [address] Performed By: #### 5 7021-8 #### [facility] CLIA [id number] [address] [place] [address] [place] Basophils/100 WBC (Bld) 0.2 % Normal [facility] Comment on above: Order Comment: Speci men Type: BLOOD SPECIMEN Ordering Facility: [facility] Address: [address] [place] [address] Performed By: #### 5 7021-8 #### [facility] CLIA [id number] [address] [place] [address] [place] Differential cell count method Nom (Bld) Auto Normal [facility] Comment on above: Order Comment: Speci men Type: BLOOD SPECIMEN Ordering Facility: [facility] Address: [address] [place] [address] Performed By: #### 5 7021-8 #### [facility] CLIA [id number] [address] [place] [address] [place] Eosinophils (Bld) [#/Vol] 0.18 10*3/uL Normal <0.46 [facility] Comment on above: Order Comment: Speci men Type: BLOOD SPECIMEN Ordering Facility: [facility] Address: [address] [place] [address] Performed By: #### 5 7021-8 #### [facility] CLIA [id number] [address] [place] [address] [place] Eosinophils/100 WBC (Bld) 1.9 % Normal [facility] Comment on above: Order Comment: Speci men Type: BLOOD SPECIMEN Ordering Facility: [facility] Address: [address] [place] [address] Performed By: #### 5 7021-8 #### [facility] CLIA [id number] [address] [place] [address] [place] Erythrocyte distribution width (RBC) [Ratio] 14.5 % Normal 11.5-15.0 [facility] Comment on above: Order Comment: Speci men Type: BLOOD SPECIMEN Ordering Facility: [facility] Address: [address] [place] [address] Performed By: #### 5 7021-8 #### [facility] CLIA [id number] [address] [place] [address] [place] Hematocrit (Bld) [Volume fraction] 30.2 % Low 39.0-51.0 [facility] Comment on above: Order Comment: Speci men Type: BLOOD SPECIMEN Ordering Facility: [facility] Address: [address] [place] [address] Performed By: #### 5 7021-8 #### [facility] CLIA [id number] [address] [place] [address] [place] Hemoglobin (Bld) [Mass/Vol] 9.4 g/dL Low 13.0-17.0 [facility] Comment on above: Order Comment: Speci men Type: BLOOD SPECIMEN Ordering Facility: [facility] Address: [address] [place] [address] Performed By: #### 5 7021-8 #### [facility] CLIA [id number] [address] [place] [address] [place] Immature granulocytes (Bld) [#/Vol] 0.06 10*3/uL Normal <0.10 [facility] Comment on above: Order Comment: Speci men Type: BLOOD SPECIMEN Ordering Facility: [facility] Address: [address] [place] [address] Performed By: #### 5 7021-8 #### [facility] CLIA [id number] [address] [place] [address] [place] Immature granulocytes/100 WBC (Bld) 0.6 % Normal [facility] Comment on above: Order Comment: Speci men Type: BLOOD SPECIMEN [facility] [facility] Address: [address] [place] [address] Performed By: #### 5 7021-8 #### [facility] CLIA [id number] [address] [place] [address] [place] Lymphocytes (Bld) [#/Vol] 1.61 10*3/uL Normal 1.00-4.00 [facility] Comment on above: Order Comment: Speci men Type: BLOOD SPECIMEN Ordering Facility: [facility] Address: [address] [place] [address] Performed By: #### 5 7021-8 #### [facility] CLIA [id number] [address] [place] [address] [place] Lymphocytes/100 WBC (Bld) 16.8 % Normal [facility] Comment on above: Order Comment: Speci men Type: BLOOD SPECIMEN Ordering Facility: [facility] Address: [address] [place] [address] Performed By: #### 5 7021-8 #### [facility] CLIA [id number] [address] [place] [address] [place] MCH (RBC) [Entitic mass] 26.5 pg Normal 26.0-34.0 [facility] Comment on above: Order Comment: Speci men Type: BLOOD SPECIMEN Ordering Facility: [facility] Address: [address] [place] [address] Performed By: #### 5 7021-8 #### [facility] CLIA [id number] [address] [place] [address] [place] MCHC (RBC) [Mass/Vol] 31.1 g/dL Normal 30.5-36.0 [facility] Comment on above: Order Comment: Speci men Type: BLOOD SPECIMEN Ordering Facility: [facility] Address: [address] [place] [address] Performed By: #### 5 7021-8 #### [facility] CLIA [id number] [address] [place] [address] [place] MCV (RBC) [Entitic vol] 85.1 fL Normal 80.0-100.0 [facility] Comment on above: Order Comment: Speci men Type: BLOOD SPECIMEN Ordering Facility: [facility] Address: [address] [place] [address] Performed By: #### 5 7021-8 #### [facility] CLIA [id number] [address] [place] [address] [place] Monocytes (Bld) [#/Vol] 0.88 10*3/uL High <0.87 [facility] Comment on above: Order Comment: Speci men Type: BLOOD SPECIMEN Ordering Facility: [facility] Address: [address] [place] [address] Performed By: #### 5 7021-8 #### [facility] CLIA [id number] [address] [place] [address] [place] Monocytes/100 WBC (Bld) 9.2 % Normal [facility] Comment on above: Order Comment: Speci men Type: BLOOD SPECIMEN Ordering Facility: [facility] Address: [address] [place] [address] Performed By: #### 5 7021-8 #### [facility] CLIA [id number] [address] [place] [address] [place] Neutrophils (Bld) [#/Vol] 6.84 10*3/uL Normal 1.45-7.50 [facility] Comment on above: Order Comment: Speci men Type: BLOOD SPECIMEN Ordering Facility: [facility] Address: [address] [place] [address] Performed By: #### 5 7021-8 #### [facility] CLIA [id number] [address] [place] [address] [place] Neutrophils/100 WBC (Bld) 71.3 % Normal [facility] Comment on above: Order Comment: Speci men Type: BLOOD SPECIMEN Ordering Facility: [facility] Address: [address] [place] [address] Performed By: #### 5 7021-8 #### [facility] CLIA [id number] [address] [place] [address] [place] Nucleated RBC (Bld) [#/Vol] 10*3/uL Normal <0.01 [facility] Comment on above: Order Comment: Speci men Type: BLOOD SPECIMEN Ordering Facility: [facility] Address: [address] [place] [address] Performed By: #### 5 7021-8 #### [facility] CLIA [id number] [address] [place] [address] [place] Nucleated RBC/100 WBC (Bld) [Ratio] 0.0 /100 WBC Normal [facility] Comment on above: Order Comment: Speci men Type: BLOOD SPECIMEN Ordering Facility: [facility] Address: [address] [place] [address] Performed By: #### 5 7021-8 #### [facility] CLIA [id number] [address] [place] [address] [place] Platelet mean volume (Bld) [Entitic vol] 9.8 fL Normal 9.0-12.7 [facility] Comment on above: Order Comment: Speci men Type: BLOOD SPECIMEN Ordering Facility: [facility] Address: [address] [place] [address] Performed By: #### 5 7021-8 #### [facility] CLIA [id number] [address] [place] [address] [place] Platelets (Bld) [#/Vol] 144 10*3/uL Low 150-400 [facility] Comment on above: Order Comment: Speci men Type: BLOOD SPECIMEN Ordering Facility: [facility] Address: [address] [place] [address] Result Comment: Resu lts checked and verified.No clot detected. Performed By: #### 5 7021-8 #### [facility] CLIA [id number] [address] [place] [address] [place] RBC (Bld) [#/Vol] 3.55 10*6/uL Low 4.20-6.00 [facility] Comment on above: Order Comment: Speci men Type: BLOOD SPECIMEN Ordering Facility: [facility] Address: [address] [place] [address] Performed By: #### 5 7021-8 #### [facility] CLIA [id number] [address] [place] [address] [place] WBC (Bld) [#/Vol] 9.59 10*3/uL Normal 3.70-11.00 [facility] Comment on above: Order Comment: Speci men Type: BLOOD SPECIMEN Ordering Facility: [facility] Address: [address] [place] [address] Performed By: #### 5 7021-8 #### [facility] CLIA [id number] [address] [place] [address] [place] CBC panel Auto (Bld)on 10-30 Erythrocyte distribution width (RBC) [Ratio] 14.5 % Normal 11.5-15.0 [facility] Comment on above: Order Comment: Speci men Type: BLOOD SPECIMEN Ordering Facility: [facility] Address: [address] [place] [address] Performed By: #### 5 7021-8 #### [facility] CLIA [id number] [address] [place] [address] [place] Hematocrit (Bld) [Volume fraction] 28.6 % Low 39.0-51.0 [facility] Comment on above: Order Comment: Speci men Type: BLOOD SPECIMEN Ordering Facility: [facility] Address: [address] [place] [address] Performed By: #### 5 7021-8 #### [facility] CLIA [id number] [address] [place] [address] [place] Hemoglobin (Bld) [Mass/Vol] 9.1 g/dL Low 13.0-17.0 [facility] Comment on above: Order Comment: Speci men Type: BLOOD SPECIMEN Ordering Facility: [facility] Address: [address] [place] [address] Performed By: #### 5 7021-8 #### [facility] CLIA [id number] [address] [place] [address] [place] MCH (RBC) [Entitic mass] 27.1 pg Normal 26.0-34.0 [facility] Comment on above: Order Comment: Speci men Type: BLOOD SPECIMEN Ordering Facility: [facility] Address: [address] [place] [address] Performed By: #### 5 7021-8 #### [facility] CLIA [id number] [address] [place] [address] [place] MCHC (RBC) [Mass/Vol] 31.8 g/dL Normal 30.5-36.0 [facility] Comment on above: Order Comment: Speci men Type: BLOOD SPECIMEN Ordering Facility: [facility] Address: [address] [place] [address] Performed By: #### 5 7021-8 #### [facility] CLIA [id number] [address] [place] [address] [place] MCV (RBC) [Entitic vol] 85.1 fL Normal 80.0-100.0 [facility] Comment on above: Order Comment: Speci men Type: BLOOD SPECIMEN Ordering Facility: [facility] Address: [address] [place] [address] Performed By: #### 5 7021-8 #### [facility] CLIA [id number] [address] [place] [address] [place] Nucleated RBC (Bld) [#/Vol] 10*3/uL Normal <0.01 [facility] Comment on above: Order Comment: Speci men Type: BLOOD SPECIMEN Ordering Facility: [facility] Address: [address] [place] [address] Performed By: #### 5 7021-8 #### [facility] CLIA [id number] [address] [place] [address] [place] Platelet mean volume (Bld) [Entitic vol] 10.1 fL Normal 9.0-12.7 [facility] Comment on above: Order Comment: Speci men Type: BLOOD SPECIMEN Ordering Facility: [facility] Address: [address] [place] [address] Performed By: #### 5 7021-8 #### [facility] CLIA [id number] [address] [place] [address] [place] Platelets (Bld) [#/Vol] 180 10*3/uL Normal 150-400 [facility] Comment on above: Order Comment: Speci men Type: BLOOD SPECIMEN Ordering Facility: [facility] Address: [address] [place] [address] Performed By: #### 5 7021-8 #### [facility] CLIA [id number] [address] [place] [address] [place] RBC (Bld) [#/Vol] 3.36 10*6/uL Low 4.20-6.00 [facility] Comment on above: Order Comment: Speci men Type: BLOOD SPECIMEN Ordering Facility: [facility] Address: [address] [place] [address] Performed By: #### 5 7021-8 #### [facility] CLIA [id number] [address] [place] [address] [place] WBC (Bld) [#/Vol] 10.06 10*3/uL Normal 3.70-11.00 [facility] Comment on above: Order Comment: Speci men Type: BLOOD SPECIMEN Ordering Facility: [facility] Address: [address] [place] [address] Performed By: #### 5 7021-8 #### [facility] CLIA [id number] [address] [facility] [place] [address] [place] CONSULT PROGon 10-31-2023 CONSULT PROG HNO ID: [id number] Author: HEAVEN CAMACHO MD Service: Urology Author Type: Resident Type: Consult Progress Note Filed: 10/31/2023 06:56 Note Text: [facility] UROLOGY PROGRESS NOTE Name: Johnny Devine Bed: H071 019/[id number] Date: 10/31/2023 After Hours [facility] Urology Service Pager: [phone] ASSESSMENT AND PLAN Johnny Devine is a [...] affiliate, Dr. Joseph Camacho MD Urology Resident [facility] Pager [phone] For weekend or after hours issues please page the on-call urology pager [phone] 10/31/2023 6:48 AM Subjective SUBJECTIVE - See [...] Imaging All relevant recent imaging reviewed Normal [facility] Comprehensive metabolic 2000 panelon 10-31-2023 Albumin [Mass/Vol] 3.1 g/dL Low 3.9-4.9 [facility] Comment on above: Order Comment: Speci men Type: BLOOD SPECIMEN Ordering Facility: [facility] Address: [address] [place] [address] Performed By: #### 5 7021-8 #### [facility] CLIA [id number] [address] [place] [address] [place] ALP [Catalytic activity/Vol] 31 U/L Low 38-113 [facility] Comment on above: Order Comment: Speci men Type: BLOOD SPECIMEN Ordering Facility: [facility] Address: [address] [place] [address] Performed By: #### 5 7021-8 #### [facility] CLIA [id number] [address] [place] [address] [place] ALT [Catalytic activity/Vol] 6 U/L Low 10-54 [facility] Comment on above: Order Comment: Speci men Type: BLOOD SPECIMEN Ordering Facility: [facility] Address: [address] [place] [address] Performed By: #### 5 7021-8 #### [facility] CLIA [id number] [address] [place] [address] [place] Anion gap [Moles/Vol] 6 mmol/L Low 9-18 [facility] Comment on above: Order Comment: Speci men Type: BLOOD SPECIMEN Ordering Facility: [facility] Address: [address] [place] [address] Performed By: #### 5 7021-8 #### [facility] CLIA [id number] [address] [place] [address] [place] AST [Catalytic activity/Vol] 13 U/L Low 14-40 [facility] Comment on above: Order Comment: Speci men Type: BLOOD SPECIMEN Ordering Facility: [facility] Address: [address] [place] [address] Performed By: #### 5 7021-8 #### [facility] CLIA [id number] [address] [place] [address] [place] Bilirubin [Mass/Vol] mg/dL Low 0.2-1.3 [facility] Comment on above: Order Comment: Speci men Type: BLOOD SPECIMEN Ordering Facility: [facility] Address: [address] [place], [place] [address] Performed By: #### 5 7021-8 #### [facility] CLIA [id number] [address] [place] [address] [place] Calcium [Mass/Vol] 7.4 mg/dL Low 8.5-10.2 [facility] Comment on above: Order Comment: Speci men Type: BLOOD SPECIMEN Ordering Facility: [facility] Address: [address] [place] [address] Performed By: #### 5 7021-8 #### [facility] CLIA [id number] [address] [place] [address] [place] Chloride [Moles/Vol] 115 mmol/L High 97-105 [facility] Comment on above: Order Comment: Speci men Type: BLOOD SPECIMEN Ordering Facility: [facility] Address: [address] [place] [address] Performed By: #### 5 7021-8 #### [facility] CLIA [id number] [address] [place] [address] [place] CO2 [Moles/Vol] 26 mmol/L Normal 22-30 [facility] Comment on above: Order Comment: Speci men Type: BLOOD SPECIMEN Ordering Facility: [facility] Address: [address] [place] [address] Performed By: #### 5 7021-8 #### [facility] CLIA [id number] [address] [place] [address] [place] Creatinine [Mass/Vol] 0.73 mg/dL Normal 0.73-1.22 [facility] Comment on above: Order Comment: Speci men Type: BLOOD SPECIMEN Ordering Facility: [facility] Address: [address] [place] [address] Performed By: #### 5 7021-8 #### [facility] CLIA [id number] [address] [place] [address] [place] Creatinine and Glomerular filtration rate.predicted panel (S/P/Bld) 125 mL/min/1.73m??? Normal >=60 [facility] Comment on above: Order Comment: Speci men Type: BLOOD SPECIMEN Ordering Facility: [facility] Address: [address] [place] [address] Result Comment: Lor mated Glomerular Filtration Rate [...] GFR. Performed By: #### 5 7021-8 #### [facility] CLIA [id number] [address] [place] [address] [place] Glucose [Mass/Vol] 103 mg/dL High 74-99 [facility] Comment on above: Order Comment: Sana zuñiga Type: BLOOD SPECIMEN Ordering Facility: [facility] Address: [address] [place] [address] Result Comment: The [place] [employer] (ADA) provides guidance for cutoff [...] Standards of Medical Care in Diabetes 2016, [place] [employer]. Diabetes Care. 2016.39(Suppl 1). Performed By: #### 5 7021-8 #### [facility] CLIA [id number] [address] [place] [address] [place] Potassium [Moles/Vol] 4.0 mmol/L Normal 3.7-5.1 [facility] Comment on above: Order Comment: Sana zuñiga Type: BLOOD SPECIMEN Ordering Facility: [facility] Address: [address] [place] [address] Performed By: #### 5 7021-8 #### [facility] CLIA [id number] [address] [place] [address] [place] Protein [Mass/Vol] 5.6 g/dL Low 6.3-8.0 [facility] Comment on above: Order Comment: Speci men Type: BLOOD SPECIMEN Ordering Facility: [facility] Address: [address] [place] [address] Performed By: #### 5 7021-8 #### [facility] CLIA [id number] [address] [place] [address] [place] Sodium [Moles/Vol] 147 mmol/L High 136-144 [facility] Comment on above: Order Comment: Speci men Type: BLOOD SPECIMEN Ordering Facility: [facility] Address: [address] [place] [address] Performed By: #### 5 7021-8 #### [facility] CLIA [id number] [address] [place] [address] [place] Urea nitrogen [Mass/Vol] 9 mg/dL Normal 9-24 [facility] Comment on above: Order Comment: Speci men Type: BLOOD SPECIMEN Ordering Facility: [facility] Address: [address] [place] [address] Performed By: #### 5 7021-8 #### [facility] CLIA [id number] [address] [place] [address] [place] [id number] 10-31-2023 ECG01 Ventricular Rate : 9 3 BPM Atrial Rate : 93 BPM P-R Interval : 146 ms QRS Duration : 90 ms Q-T Interval : 394 ms QTC Calculation(Bazett) : 489 ms Calculated P [place] : 7 degrees Calculated R [place] : 11 degrees Calculated T [place] : -11 degrees NORMAL SINUS RHYTHM ANTEROLATERAL T WAVE ABNORMALITY BORDERLINE PROLONGED QTC ABNORMAL ECG Confirmed by TRENT BYRD MD ([id number]) on 11/06/2023 9:42:18 AM NAME : JOHNNY DEVINE PID : [id number] : 1990 Gender : Male Race : ORD : Procedure Date : Oct 31 2023 15:33:44 Edit Date : Nov 06 2023 09:42:18 Diagnosis: NORMAL SINUS RHYTHM ANTEROLATERAL T WAVE ABNORMALITY BORDERLINE PROLONGED QTC ABNORMAL ECG Confirmed by TRENT BYRD MD ([id number]) on 11/06/2023 9:42:18 AM Test Reason : AMET Location : 74 : H71 H71-19 Overread By : TRENT BYRD MD Edited By : TRENT BYRD MD Referred By : PHOENIX CARDENAS Acquired by : MARI DUMONT [facility] EMERon 10-31-2023 [facility] HNO ID: [id number] Author: PASTORA KINGSLEY APRN.LUMBER CARRIER OPERATOR Service: Critical Care Author Type: Nurse Practitioner [...] October 31, 2023 TIME: 4:13 PM Normal [facility] Magnesium SerPl-mCncon 10-30 Magnesium [Mass/Vol] 2.2 mg/dL Normal 1.7-2.3 [facility] Comment on above: Order Comment: Speci men Type: BLOOD SPECIMENOrdering Facility: [facility] Address: [address] [place] [address] Performed By: #### 1 9123-9, 2777-1 ####[facility] [id number] [place] [address] [place] Magnesium [Mass/Vol] 2.1 mg/dL Normal 1.7-2.3 [facility] Comment on above: Order Comment: Speci men Type: BLOOD SPECIMEN Ordering Facility: [facility] Address: [address] [place] [address] Performed By: #### 2 777-1, 61172-8, 30908-0 #### [facility] CLIA [id number] [address] [place] [address] [place] NURSING PROGon 10-31-2023 NURSING PROG HNO ID: [id number] Author: PAZ RIGGINS, MIRIAM Service: Nursing Author Type: Registered Nurse Type: Nursing Progress Note Filed: 10/31/2023 16:32 Note Text: Called into patients room by brother who stated patient was shaking hard and having seizure like activity, on entering room patient was tachypneic and breathing hard, AMET activated. Chest xray ordered, EKG done, labs done, oxygen 89 on RA, 2L NC applied. Normal [facility] Phosphate SerPl-mCncon 10-30 Phosphate [Mass/Vol] 1.4 mg/dL Low 2.7-4.8 [facility] Comment on above: Order Comment: Speci men Type: BLOOD SPECIMENOrdering Facility: [facility] Address: [address] [place] [address] Performed By: #### 1 9123-9, 2777-1 ####[facility] [id number] [facility] [place] [address] [place] Phosphate [Mass/Vol] 2.1 mg/dL Low 2.7-4.8 [facility] Comment on above: Order Comment: Speci men Type: BLOOD SPECIMEN Ordering Facility: [facility] Address: [address] [place] [address] Performed By: #### 2 777-1, 62468-9, 83272-4 #### [facility] CLIA [id number] [address] [place] [address] [place] [address] [place] XR ABDOMEN 1V [...] abnormality. Lung bases are not well seen. Product Craftsman: SUSI Transcribe Date/Time: Oct 31 2023 5:15P Dictated by : LEONEL ALONZO MD This examination was interpreted and the report reviewed and electronically signed by: LEONEL ALONZO MD on Oct 31 2023 5:22PM EST [id number] Normal [facility] XR CHEST 1V FRONTAL PORTon 0 10-31-2023 [...] cardiomediastinal silhouette. Other: . IMPRESSION: See result. Product Craftsman: [facility] Transcribe Date/Time: Oct 31 2023 4:14P Dictated by : SHEA WORTHY MD This examination was interpreted and the report reviewed and electronically signed by: SHEA WORTHY MD on Oct 31 2023 4:15PM EST [id number] Normal [facility] ANES POSTPROC EVALon 024 ANES POSTPROC EVAL HNO ID: [id number] Author: JEREMIE JOAQUIN MD Service: ? Author Type: Anesthesiologist Type: Anesthesia Postprocedure Evaluation Filed: 10/30/2023 11:55 Note Text: POST ANESTHESIA EVALUATION NOTE : 1990 Procedure Summary Date: 10/30/23 Room / Location: [address] [facility] Anesthesia Start: 731 Anesthesia [...] October 30, 2023 TIME: 11:46 AM CSN: [id number] Normal [facility] ANES PRE-OPon 10-30-2023 ANES PRE-OP HNO ID: [id number] Author: JEREMIE JOAQUIN MD Service: ? Author Type: Anesthesiologist Type: Anesthesia Preprocedure Evaluation Filed: 10/30/2023 08:16 Note Text: ANESTHESIOLOGY DAY OF SURGERY NOTE : 1990 Procedure Information Date/Time: 10/30/23 0730 Procedure: DORSAL SLIT FORESKIN EXCEPT (Penis) Location: [address] [facility] Surgeons: BarnesRafael Quiroga MD [...] mL MUCOUS MEMBRANE ONCE - phenol 1 [place] (CHLORASEPTIC) 1 [place] MUCOUS MEMBRANE (TOPICAL MOUTH AND THROAT) q [...] INTRAVENOUS DAILY (6 AM) - phenol 1 [place] (CHLORASEPTIC) 1 [place] MUCOUS MEMBRANE (TOPICAL MOUTH AND THROAT) q [...] MORNING F (more content not included)... Normal [facility] Basic metabolic 2000 panelon 10-30-2023 Anion gap [Moles/Vol] 12 mmol/L Normal 9-18 [facility] Comment on above: Order Comment: Speci men Type: BLOOD SPECIMEN Ordering Facility: [facility] Address: [address] [place] [address] Performed By: #### 2 4321-2, , 2776-08 #### [facility] CLIA [id number] [address] [place] [address] [place] Calcium [Mass/Vol] 7.4 mg/dL Low 8.5-10.2 [facility] Comment on above: Order Comment: Speci men Type: BLOOD SPECIMEN Ordering Facility: [facility] Address: [address] [place] [address] Performed By: #### 2 4321-2, , 2776-08 #### [facility] CLIA [id number] [address] [place] [address] [place] Chloride [Moles/Vol] 113 mmol/L High 97-105 [facility] Comment on above: Order Comment: Speci men Type: BLOOD SPECIMEN Ordering Facility: [facility] Address: [address] [place] [address] Performed By: #### 2 4321-2, , 2776-08 #### [facility] CLIA [id number] [address] [place] [address] [place] CO2 [Moles/Vol] 24 mmol/L Normal 22-30 [facility] Comment on above: Order Comment: Speci men Type: BLOOD SPECIMEN Ordering Facility: [facility] Address: [address] [place] [address] Performed By: #### 2 4321-2, , 2776-08 #### [facility] CLIA [id number] [address] [place] [address] [place] Creatinine [Mass/Vol] 0.69 mg/dL Low 0.73-1.22 [facility] Comment on above: Order Comment: Speci men Type: BLOOD SPECIMEN Ordering Facility: [facility] Address: [address] [place] [address] Performed By: #### 2 4321-2, , 2776-08 #### [facility] CLIA [id number] [address] [place] [address] [place] Creatinine and Glomerular filtration rate.predicted panel (S/P/Bld) 127 mL/min/1.73m??? Normal >=60 [facility] Comment on above: Order Comment: Speci men Type: BLOOD SPECIMEN Ordering Facility: [facility] Address: [address] [place] [address] Result Comment: Lor mated Glomerular Filtration Rate [...] By: #### 2 4321-2, , 2776-08 #### [facility] CLIA [id number] [facility] [place] [address] [place] Glucose [Mass/Vol] 98 mg/dL Normal 74-99 [facility] Comment on above: Order Comment: Speci men Type: BLOOD SPECIMEN Ordering Facility: [facility] Address: [address] [place] [address] Result Comment: The [place] [employer] Association (ADA) provides guidance for cutoff [...] Standards of Medical Care in Diabetes 2016, [place] [employer]. Diabetes Care. 2016.39(Suppl 1). Performed By: #### 2 4321-2, , 2776-08 #### [facility] CLIA [id number] [address] [place] [address] [place] Potassium [Moles/Vol] 3.6 mmol/L Low 3.7-5.1 [facility] Comment on above: Order Comment: Akbari men Type: BLOOD SPECIMEN Ordering Facility: [facility] Address: [address] [place] [address] Performed By: #### 2 4321-2, , 2776-08 #### [facility] CLIA [id number] [address] [place] [address] [place] Sodium [Moles/Vol] 149 mmol/L High 136-144 [facility] Comment on above: Order Comment: Akbari men Type: BLOOD SPECIMEN Ordering Facility: [facility] Address: [address] [place] [address] Performed By: #### 2 4321-2, , 2776-08 #### [facility] CLIA [id number] [address] [place] [address] [place] Urea nitrogen [Mass/Vol] 9 mg/dL Normal 9-24 [facility] Comment on above: Order Comment: Speci men Type: BLOOD SPECIMEN Ordering Facility: [facility] Address: [address] [place] [address] Performed By: #### 2 4321-2, 78521-4, 2776- #### [facility] CLIA [id number] [address] [place] [address] [place] CBC W Auto Differential pane l (Bld)on 10-30-2023 Basophils (Bld) [#/Vol] 0.03 10*3/uL Normal <0.11 [facility] Comment on above: Order Comment: Speci men Type: BLOOD SPECIMEN Ordering Facility: [facility] Address: [address] [place] [address] Performed By: #### 5 7021-8 #### [facility] CLIA [id number] [address] [place] [address] [place] Basophils/100 WBC (Bld) 0.3 % Normal [facility] Comment on above: Order Comment: Speci men Type: BLOOD SPECIMEN Ordering Facility: [facility] Address: [address] [place] [address] Performed By: #### 5 7021-8 #### [facility] CLIA [id number] [address] [place] [address] [place] Differential cell count method Nom (Bld) Auto Normal [facility] Comment on above: Order Comment: Speci men Type: BLOOD SPECIMEN Ordering Facility: [facility] Address: [address] [place] [address] Performed By: #### 5 7021-8 #### [facility] CLIA [id number] [address] [place] [address] [place] Eosinophils (Bld) [#/Vol] 0.07 10*3/uL Normal <0.46 [facility] Comment on above: Order Comment: Speci men Type: BLOOD SPECIMEN Ordering Facility: [facility] Address: [address] [place] [address] Performed By: #### 5 7021-8 #### [facility] CLIA [id number] [address] [place] [address] [place] Eosinophils/100 WBC (Bld) 0.6 % Normal [facility] Comment on above: Order Comment: Speci men Type: BLOOD SPECIMEN Ordering Facility: [facility] Address: [address] [place] [address] Performed By: #### 5 7021-8 #### [facility] CLIA [id number] [address] [place] [address] [place] Erythrocyte distribution width (RBC) [Ratio] 14.5 % Normal 11.5-15.0 [facility] Comment on above: Order Comment: Speci men Type: BLOOD SPECIMEN Ordering Facility: [facility] Address: [address] [place] [address] Performed By: #### 5 7021-8 #### [facility] CLIA [id number] [address] [place] [address] [place] Hematocrit (Bld) [Volume fraction] 31.1 % Low 39.0-51.0 [facility] Comment on above: Order Comment: Speci men Type: BLOOD SPECIMEN Ordering Facility: [facility] Address: [address] [place] [address] Performed By: #### 5 7021-8 #### [facility] CLIA [id number] [address] [place] [address] [place] Hemoglobin (Bld) [Mass/Vol] 9.8 g/dL Low 13.0-17.0 [facility] Comment on above: Order Comment: Speci men Type: BLOOD SPECIMEN Ordering Facility: [facility] Address: [address] [place] [address] Performed By: #### 5 7021-8 #### [facility] CLIA [id number] [address] [place] [address] [place] Immature granulocytes (Bld) [#/Vol] 0.06 10*3/uL Normal <0.10 [facility] Comment on above: Order Comment: Speci men Type: BLOOD SPECIMEN Ordering Facility: [facility] Address: [address] [place] [address] Performed By: #### 5 7021-8 #### [facility] CLIA [id number] [address] [place] [address] [place] Immature granulocytes/100 WBC (Bld) 0.5 % Normal [facility] Comment on above: Order Comment: Speci men Type: BLOOD SPECIMEN Ordering Facility: [facility] Address: [address] [place] [address] Performed By: #### 5 7021-8 #### [facility] CLIA [id number] [address] [place] [address] [place] Lymphocytes (Bld) [#/Vol] 1.41 10*3/uL Normal 1.00-4.00 [facility] Comment on above: Order Comment: Speci men Type: BLOOD SPECIMEN Ordering Facility: [facility] Address: [address] [place] [address] Performed By: #### 5 7021-8 #### [facility] CLIA [id number] [address] [place] [address] [place] Lymphocytes/100 WBC (Bld) 12.0 % Normal [facility] Comment on above: Order Comment: Speci men Type: BLOOD SPECIMEN Ordering Facility: [facility] Address: [address] [place] [address] Performed By: #### 5 7021-8 #### [facility] CLIA [id number] [address] [place] [address] [place] MCH (RBC) [Entitic mass] 26.6 pg Normal 26.0-34.0 [facility] Comment on above: Order Comment: Speci men Type: BLOOD SPECIMEN Ordering Facility: [facility] Address: [address] [place] [address] Performed By: #### 5 7021-8 #### [facility] CLIA [id number] [address] [place] [address] [place] MCHC (RBC) [Mass/Vol] 31.5 g/dL Normal 30.5-36.0 [facility] Comment on above: Order Comment: Speci men Type: BLOOD SPECIMEN Ordering Facility: [facility] Address: [address] [place] [address] Performed By: #### 5 7021-8 #### [facility] CLIA [id number] [address] [place] [address] [place] MCV (RBC) [Entitic vol] 84.5 fL Normal 80.0-100.0 [facility] Comment on above: Order Comment: Speci men Type: BLOOD SPECIMEN Ordering Facility: [facility] Address: [address] [place] [address] Performed By: #### 5 7021-8 #### [facility] CLIA [id number] [address] [place] [address] [place] Monocytes (Bld) [#/Vol] 1.18 10*3/uL High <0.87 [facility] Comment on above: Order Comment: Speci men Type: BLOOD SPECIMEN Ordering Facility: [facility] Address: [address] [place] [address] Performed By: #### 5 7021-8 #### [facility] CLIA [id number] [address] [place] [address] [place] Monocytes/100 WBC (Bld) 10.1 % Normal [facility] Comment on above: Order Comment: Speci men Type: BLOOD SPECIMEN Ordering Facility: [facility] Address: [address] [place] [address] Performed By: #### 5 7021-8 #### [facility] CLIA [id number] [address] [place] [address] [place] Neutrophils (Bld) [#/Vol] 8.98 10*3/uL High 1.45-7.50 [facility] Comment on above: Order Comment: Speci men Type: BLOOD SPECIMEN Ordering Facility: [facility] Address: [address] [place] [address] Performed By: #### 5 7021-8 #### [facility] CLIA [id number] [address] [place] [address] [place] Neutrophils/100 WBC (Bld) 76.5 % Normal [facility] Comment on above: Order Comment: Speci men Type: BLOOD SPECIMEN Ordering Facility: [facility] Address: [address] [place] [address] Performed By: #### 5 7021-8 #### [facility] CLIA [id number] [address] [place] [address] [place] Nucleated RBC (Bld) [#/Vol] 10*3/uL Normal <0.01 [facility] Comment on above: Order Comment: Speci men Type: BLOOD SPECIMEN Ordering Facility: [facility] Address: [address] [place] [address] Performed By: #### 5 7021-8 #### [facility] CLIA [id number] [address] [place] [address] [place] Nucleated RBC/100 WBC (Bld) [Ratio] 0.0 /100 WBC Normal [facility] Comment on above: Order Comment: Speci men Type: BLOOD SPECIMEN Ordering Facility: [facility] Address: [address] [place] [address] Performed By: #### 5 7021-8 #### [facility] CLIA [id number] [address] [place] [address] [place] Platelet mean volume (Bld) [Entitic vol] 9.7 fL Normal 9.0-12.7 [facility] Comment on above: Order Comment: Speci men Type: BLOOD SPECIMEN Ordering Facility: [facility] Address: [address] [place] [address] Performed By: #### 5 7021-8 #### [facility] CLIA [id number] [address] [place] [address] [place] Platelets (Bld) [#/Vol] 138 10*3/uL Low 150-400 [facility] Comment on above: Order Comment: Speci men Type: BLOOD SPECIMEN Ordering Facility: [facility] Address: [address] [place] [address] Performed By: #### 5 7021-8 #### [facility] CLIA [id number] [address] [place] [address] [place] RBC (Bld) [#/Vol] 3.68 10*6/uL Low 4.20-6.00 [facility] Comment on above: Order Comment: Speci men Type: BLOOD SPECIMEN Ordering Facility: [facility] Address: [address] [place] [address] Performed By: #### 5 7021-8 #### [facility] CLIA [id number] [address] [place] [address] [place] WBC (Bld) [#/Vol] 11.73 10*3/uL High 3.70-11.00 [facility] Comment on above: Order Comment: Speci men Type: BLOOD SPECIMEN Ordering Facility: [facility] Address: [address] [place] [address] Performed By: #### 5 7021-8 #### [facility] CLIA [id number] [address] [place] [address] [place] CONSULTon 10-30-2023 CONSULT HNO ID: [id number] Author: RAFAEL GIRALDO MD Service: Urology Author [...] Per primary team patient was transferred to [facility] with 8 Fr haskins catheter placed at [...] the meatal orifice was visualized, an 8 [place] Haskins catheter was sterilely placed. However, the [...] Dr. 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 CYU was [...] CONGESTIONDisp: Rfl: guanFACINE (INTUNIV ER) 4 mg [id number] 4 mg by mouth onc (more content not included)... Normal [facility] Magnesium SerPl-mCncon 10-29 Magnesium [Mass/Vol] 2.0 mg/dL Normal 1.7-2.3 [facility] Comment on above: Order Comment: Speci men Type: BLOOD SPECIMENOrdering Facility: [facility] Address: [address] [place] [address] Performed By: #### 2 4321-2, 68022-3, 2777-1 ####[facility] [id number] [address] [place] NURSING PROGon 10-30-2023 NURSING PROG HNO ID: [id number] Author: SHAHRIAR FARFAN, RN Service: Nursing Author Type: Registered Nurse Type: Nursing Progress Note Filed: 10/30/2023 09:52 Note Text: Pt awake, opens eyes spontaneously, MEDINA to command, generalized weakness. Nonverbal at baseline. VSS. Appears comfortable, no grimacing, resting Normal [facility] NURSING PROG HNO ID: [id number] Author: SHAHRIAR FARFAN RN Service: Nursing Author [...] effective in protecting the patient's safety: Alarms, Horticultural Therapist/Sitter, Bed in Low/Locked Position Next, a comprehensive assessment was performed and warranted placing the patient in Soft Bilateral Wrists, the least restrictive restraint needed to protect the patient's safety. Ongoing safety assessments and evaluation for earliest removal of restraints will be performed. DATE: October 30, 2023 TIME: 9:48 AM Shahriar Farfan RN Normal [facility] NURSING PRO HNO ID: [id number] Author: LEONARD FRANCIS JR, RN Service: Nursing Author Type: Registered Nurse Type: Nursing Progress Note Filed: 10/30/2023 01:11 Note Text: 2200 PM: PT does not have have a haskins catheter post op. Per report, prior to OR PT was admitted from OSH with a pediatric haskins in place due to difficulties with normal catheter. [id number] Gen surg notified. PT is clean and [...] Gen surg at bedside Leonard PINEDA. Normal [facility] OPERATIVE NOon 10-30-2023 OPERATIVE NO HNO ID: [id number] Author: HERMAN JOHNSON MD Service: Urology Author Type: Resident Type: Operative Report Filed: 10/30/2023 09:08 Note Text: Attestation signed by Oscar Ruiz MD at 10/30/2023 9:20 AM Attestation The primary proceduralist, Wale Thomas, performed the entire procedure with the assistance of Dr. Johnson. I agree with the documentation above. [facility] UROLOGY OPERATIVE REPORT Patient Name: Johnny Devine Patient Log ID: [id number] Surgery Date: 10/30/2023 Incision/Procedure Start Time: 8:03 AM Incision Close/Procedure End Time: 8:17 AM Surgeon(s) and Independent Sales Representative(s): Surgeon(s) and Role: * Oscar Ruiz MD [...] I agree with the documentation above. Normal [facility] Phosphate SerPl-mCncon 10-29 Phosphate [Mass/Vol] 2.2 mg/dL Low 2.7-4.8 [facility] Comment on above: Order Comment: Speci men Type: BLOOD SPECIMENOrdering Facility: [facility] Address: [address] [place], [place] [address] [address] Performed By: #### 2 4321-2, 00545-9, 2777-1 ####[facility] [id number] [place] [address] [place] XR ABDOMEN 1V [...] likely an ileus. Sigmoid distention appears improved Product Craftsman: PSCB Transcribe Date/Time: Oct 30 2023 7:41A Dictated by : RYAN MORRIS MD This examination was interpreted and the report reviewed and electronically signed by: RYAN MORRIS MD on Oct 30 2023 7:43AM EST [id number] Normal [facility] ANES POSTPROC EVALon 024 ANES POSTPROC EVAL HNO ID: [id number] Author: DORIE TENA DO Service: ? Author Type: Anesthesiologist Type: Anesthesia Postprocedure Evaluation Filed: 10/29/2023 14:37 Note Text: POST ANESTHESIA EVALUATION NOTE : 1990 Procedure Summary Date: 10/29/23 Room / Location: [address] [facility] Anesthesia Start: 0948 Anesthesia Stop: [...] October 29, 2023 TIME: 2:34 PM CSN: [id number] Normal [facility] ANES PRE-OPon 10-29-2023 ANES PRE-OP HNO ID: [id number] Author: KENZIE MORE APRN.EYEGLASS LENS GRINDER Service: ? Author Type: Nurse Rattan Worker Type: Anesthesia Preprocedure Evaluation Filed: 10/29/2023 09:58 Note Text: ANESTHESIOLOGY DAY OF SURGERY NOTE : 1990 Procedure Information Anesthesia Start Date/Time: 10/29/23947 Procedure: EXPLORATORY LAPAROTOMY (Abdomen) Location: [facility] / [facility] [place] Surgeons: Samuel Robin MD There is no [...] HR - [Held on Transfer] phenol 1 [place] (CHLORASEPTIC) 1 [place] MUCOUS MEMBRANE (TOPICAL MOUTH AND THROAT) q [...] - Sennosid (more content not included)... Normal [facility] BRIEF OP NOTon 10-29-2023 BRIEF OP NOT HNO ID: [id number] Author: PA ALICEA MD Service: General Surgery Author Type: Resident Type: Brief Op Note Filed: 10/29/2023 11:47 Note Text: [facility] BRIEF OP NOTE LOG ID: [id number] SURGERY/PROCEDURE DATE: 10/29/2023 INCISION/PROCEDURE START TIME: 10:25 AM INCISION CLOSE/PROCEDURE END TIME: 11:40 AM SURGEON(S)/PROCEDURAL IST(S) AND DISCOVERY MANAGER(S): Surgeon(s) and Role: * Samuel Robin [...] 29, 2023 TIME: 11:45 AM PAGER/CONTACT #: [facility] BRIEF OP NOT HNO ID: [id number] Author: DANTE CHERRY MD Service: General Surgery Author Type: Resident Type: Brief Op Note Filed: 10/29/2023 11:44 Note Text: BRIEF OPERATIVE / PROCEDURE NOTE LOG ID: [id number] SURGERY/PROCEDURE DATE: 10/29/2023 INCISION/PROCEDURE START TIME: 10:25 AM INCISION CLOSE/PROCEDURE END TIME: 11:40 AM SURGEON(S)/PROCEDURAL IST(S) AND DISCOVERY MANAGER(S): Surgeon(s) and Role: * Samuel Robin [...] October 29, 2023 TIME: 11:36 AM Normal [facility] BRIEF OP NOT HNO ID: [id number] Author: PA ALICEA MD Service: General Surgery Author Type: Resident Type: Brief Op Note Filed: 10/29/2023 08:42 Note Text: Created in Error Normal [facility] Basic metabolic 2000 panelon 10-29-2023 Anion gap [Moles/Vol] 11 mmol/L Normal 9-18 [facility] Comment on above: Order Comment: Speci men Type: BLOOD SPECIMEN Ordering Facility: [facility] Address: [address] [place] [address] Performed By: #### 2 777-1, , #### [facility] CLIA [id number] [address] [place] [address] [place] Calcium [Mass/Vol] 7.4 mg/dL Low 8.5-10.2 [facility] Comment on above: Order Comment: Speci men Type: BLOOD SPECIMEN Ordering Facility: [facility] Address: [address] [place] [address] Performed By: #### 2 777-1, , #### [facility] CLIA [id number] [address] [place] [address] [place] Chloride [Moles/Vol] 112 mmol/L High 97-105 [facility] Comment on above: Order Comment: Speci men Type: BLOOD SPECIMEN Ordering Facility: [facility] Address: [address] [place], [place] [address] Performed By: #### 2 777-1, 44158-1, #### [facility] CLIA [id number] [address] [place], [place] [address] [place] CO2 [Moles/Vol] 21 mmol/L Low 22-30 [facility] Comment on above: Order Comment: Speci men Type: BLOOD SPECIMEN Ordering Facility: [facility] Address: [address] [place] [address] Performed By: #### 2 777-1, 38257-6, #### [facility] CLIA [id number] [address] [place] [address] [place] Creatinine [Mass/Vol] 0.69 mg/dL Low 0.73-1.22 [facility] Comment on above: Order Comment: Speci men Type: BLOOD SPECIMEN Ordering Facility: [facility] Address: [address] [place] [address] Performed By: #### 2 777-1, , #### [facility] CLIA [id number] [address] [place] [address] [place] Creatinine and Glomerular filtration rate.predicted panel (S/P/Bld) 127 mL/min/1.73m??? Normal >=60 [facility] Comment on above: Order Comment: Speci men Type: BLOOD SPECIMEN Ordering Facility: [facility] Address: [address] [place] [address] Result Comment: Lor mated Glomerular Filtration Rate [...] actual GFR. Performed By: #### 2 777-1, 71086-6, #### [facility] CLIA [id number] [address] [place] [address] [place] Glucose [Mass/Vol] 115 mg/dL High 74-99 [facility] Comment on above: Order Comment: Speci men Type: BLOOD SPECIMEN Ordering Facility: [facility] Address: [address] [place] [address] Result Comment: The [place] [employer] (ADA) provides guidance for cutoff [...] Standards of Medical Care in Diabetes 2016, [place] [employer]. Diabetes Care. 2016.39(Suppl 1). Performed By: #### 2 777-1, 99072-7, #### [facility] CLIA [id number] [address] [place] [address] [place] Potassium [Moles/Vol] 3.8 mmol/L Normal 3.7-5.1 [facility] Comment on above: Order Comment: Speci men Type: BLOOD SPECIMEN Ordering Facility: [facility] Address: [address] [place] [address] Performed By: #### 2 777-1, 55735-9, #### [facility] CLIA [id number] [address] [place] [address] [place] Sodium [Moles/Vol] 144 mmol/L Normal 136-144 [facility] Comment on above: Order Comment: Speci men Type: BLOOD SPECIMEN Ordering Facility: [facility] Address: [address] [place] [address] Performed By: #### 2 777-1, 16261-5, 64216-8 #### [facility] CLIA [id number] [address] [place] [address] [place] Urea nitrogen [Mass/Vol] 13 mg/dL Normal 9-24 [facility] Comment on above: Order Comment: Speci men Type: BLOOD SPECIMEN Ordering Facility: [facility] Address: [address] [place] [address] Performed By: #### 2 777-1, 02529-9, #### [facility] CLIA [id number] [address] [place] [address] [place] CBC W Auto Differential pane l (Bld)on 10-29-2023 Basophils (Bld) [#/Vol] 10*3/uL Normal <0.11 [facility] Comment on above: Order Comment: Speci men Type: BLOOD SPECIMEN Ordering Facility: [facility] Address: [address] [place] [address] Performed By: #### 5 7021-8 #### [facility] CLIA [id number] [address] [place] [address] [place] Basophils/100 WBC (Bld) 0.1 % Normal [facility] Comment on above: Order Comment: Speci men Type: BLOOD SPECIMEN Ordering Facility: [facility] Address: [address] [place] [address] Performed By: #### 5 7021-8 #### [facility] CLIA [id number] [address] [place] [address] [place] Differential cell count method Nom (Bld) Auto Normal [facility] Comment on above: Order Comment: Speci men Type: BLOOD SPECIMEN Ordering Facility: [facility] Address: [address] [place] [address] Performed By: #### 5 7021-8 #### [facility] CLIA [id number] [address] [place] [address] [place] Eosinophils (Bld) [#/Vol] 10*3/uL Normal <0.46 [facility] Comment on above: Order Comment: Speci men Type: BLOOD SPECIMEN Ordering Facility: [facility] Address: [address] [place] [address] Performed By: #### 5 7021-8 #### [facility] CLIA [id number] [address] [place] [address] [place] Eosinophils/100 WBC (Bld) 0.1 % Normal [facility] Comment on above: Order Comment: Speci men Type: BLOOD SPECIMEN Ordering Facility: [facility] Address: [address] [place] [address] Performed By: #### 5 7021-8 #### [facility] CLIA [id number] [address] [place] [address] [place] Erythrocyte distribution width (RBC) [Ratio] 14.6 % Normal 11.5-15.0 [facility] Comment on above: Order Comment: Speci men Type: BLOOD SPECIMEN Ordering Facility: [facility] Address: [address] [place] [address] Performed By: #### 5 7021-8 #### [facility] CLIA [id number] [address] [place] [address] [place] Hematocrit (Bld) [Volume fraction] 33.0 % Low 39.0-51.0 [facility] Comment on above: Order Comment: Speci men Type: BLOOD SPECIMEN Ordering Facility: [facility] Address: [address] [place] [address] Performed By: #### 5 7021-8 #### [facility] CLIA [id number] [address] [place] [address] [place] Hemoglobin (Bld) [Mass/Vol] 10.5 g/dL Low 13.0-17.0 [facility] Comment on above: Order Comment: Speci men Type: BLOOD SPECIMEN Ordering Facility: [facility] Address: [address] [place] [address] Performed By: #### 5 7021-8 #### [facility] CLIA [id number] [address] [place] [address] [place] Immature granulocytes (Bld) [#/Vol] 0.05 10*3/uL Normal <0.10 [facility] Comment on above: Order Comment: Speci men Type: BLOOD SPECIMEN Ordering Facility: [facility] Address: [address] [place] [address] Performed By: #### 5 7021-8 #### [facility] CLIA [id number] [address] [place] [address] [place] Immature granulocytes/100 WBC (Bld) 0.4 % Normal [facility] Comment on above: Order Comment: Speci men Type: BLOOD SPECIMEN Ordering Facility: [facility] Address: [address] [place] [address] Performed By: #### 5 7021-8 #### [facility] CLIA [id number] [address] [place] [address] [place] Lymphocytes (Bld) [#/Vol] 1.25 10*3/uL Normal 1.00-4.00 [facility] Comment on above: Order Comment: Speci men Type: BLOOD SPECIMEN Ordering Facility: [facility] Address: [address] [place] [address] Performed By: #### 5 7021-8 #### [facility] CLIA [id number] [address] [place] [address] [place] Lymphocytes/100 WBC (Bld) 8.9 % Normal [facility] Comment on above: Order Comment: Speci men Type: BLOOD SPECIMEN Ordering Facility: [facility] Address: [address] [place] [address] Performed By: #### 5 7021-8 #### [facility] CLIA [id number] [address] [place] [address] [place] MCH (RBC) [Entitic mass] 26.9 pg Normal 26.0-34.0 [facility] Comment on above: Order Comment: Speci men Type: BLOOD SPECIMEN Ordering Facility: [facility] Address: [address] [place] [address] Performed By: #### 5 7021-8 #### [facility] CLIA [id number] [address] [place] [address] [place] MCHC (RBC) [Mass/Vol] 31.8 g/dL Normal 30.5-36.0 [facility] Comment on above: Order Comment: Speci men Type: BLOOD SPECIMEN Ordering Facility: [facility] Address: [address] [place] [address] Performed By: #### 5 7021-8 #### [facility] CLIA [id number] [address] [place] [address] [place] MCV (RBC) [Entitic vol] 84.6 fL Normal 80.0-100.0 [facility] Comment on above: Order Comment: Speci men Type: BLOOD SPECIMEN Ordering Facility: [facility] Address: [address] [place] [address] Performed By: #### 5 7021-8 #### [facility] CLIA [id number] [address] [place] [address] [place] Monocytes (Bld) [#/Vol] 1.50 10*3/uL High <0.87 [facility] Comment on above: Order Comment: Speci men Type: BLOOD SPECIMEN Ordering Facility: [facility] Address: [address] [place] [address] Performed By: #### 5 7021-8 #### [facility] CLIA [id number] [address] [place] [address] [place] Monocytes/100 WBC (Bld) 10.6 % Normal [facility] Comment on above: Order Comment: Speci men Type: BLOOD SPECIMEN Ordering Facility: [facility] Address: [address] [place] [address] Performed By: #### 5 7021-8 #### [facility] CLIA [id number] [address] [place] [address] [place] Neutrophils (Bld) [#/Vol] 11.26 10*3/uL High 1.45-7.50 [facility] Comment on above: Order Comment: Speci men Type: BLOOD SPECIMEN Ordering Facility: [facility] Address: [address] [place] [address] Performed By: #### 5 7021-8 #### [facility] CLIA [id number] [address] [place] [address] [place] Neutrophils/100 WBC (Bld) 79.9 % Normal [facility] Comment on above: Order Comment: Speci men Type: BLOOD SPECIMEN Ordering Facility: [facility] Address: [address] [place] [address] Performed By: #### 5 7021-8 #### [facility] CLIA [id number] [address] [place] [address] [place] Nucleated RBC (Bld) [#/Vol] 10*3/uL Normal <0.01 [facility] Comment on above: Order Comment: Speci men Type: BLOOD SPECIMEN Ordering Facility: [facility] Address: [address] [place] [address] Performed By: #### 5 7021-8 #### [facility] CLIA [id number] [address] [place] [address] [place] Nucleated RBC/100 WBC (Bld) [Ratio] 0.0 /100 WBC Normal [facility] Comment on above: Order Comment: Speci men Type: BLOOD SPECIMEN Ordering Facility: [facility] Address: [address] [place] [address] Performed By: #### 5 7021-8 #### [facility] CLIA [id number] [address] [place] [address] [place] Platelet mean volume (Bld) [Entitic vol] 9.4 fL Normal 9.0-12.7 [facility] Comment on above: Order Comment: Speci men Type: BLOOD SPECIMEN Ordering Facility: [facility] Address: [address] [place] [address] Performed By: #### 5 7021-8 #### [facility] CLIA [id number] [address] [place] [address] [place] Platelets (Bld) [#/Vol] 151 10*3/uL Normal 150-400 [facility] Comment on above: Order Comment: Speci men Type: BLOOD SPECIMEN Ordering Facility: [facility] Address: [address] [place] [address] Performed By: #### 5 7021-8 #### [facility] CLIA [id number] [address] [place] [address] [place] RBC (Bld) [#/Vol] 3.90 10*6/uL Low 4.20-6.00 [facility] Comment on above: Order Comment: Speci men Type: BLOOD SPECIMEN Ordering Facility: [facility] Address: [address] [place] [address] Performed By: #### 5 7021-8 #### [facility] CLIA [id number] [address] [place] [address] [place] WBC (Bld) [#/Vol] 14.09 10*3/uL High 3.70-11.00 [facility] Comment on above: Order Comment: Speci men Type: BLOOD SPECIMEN Ordering Facility: [facility] Address: [address] [place] [address] Performed By: #### 5 7021-8 #### [facility] CLIA [id number] [address] [place] [address] [place] CONFIRM BLOOD TYPEon 024 ABO A Normal [facility] Comment on above: Order Comment: Speci men Type: BLOOD SPECIMENOrdering Facility: [facility] Address: [address] [place] [address] Performed By: #### C ONABO ####[facility]ANKCLIA [id number] [place] [address] [place] Rh Nom (Bld) Positive Normal [facility] Comment on above: Order Comment: Speci men Type: BLOOD SPECIMENOrdering Facility: [facility] Address: [address] [place] [address] Performed By: #### C ONABO ####[facility]ANKCLIA [id number] [place] [address] [place] Magnesium SerPl-mCncon 10-28 Magnesium [Mass/Vol] 1.8 mg/dL Normal 1.7-2.3 [facility] Comment on above: Order Comment: Speci men Type: BLOOD SPECIMEN Ordering Facility: [facility] Address: [address] [place] [address] Performed By: #### 2 777-1, 65814-8, 74249-2 #### [facility] CLIA [id number] [address] [place] [address] [place] NURSING PROGon 10-29-2023 NURSING PROG HNO ID: [id number] Author: BAILEY HUTSON RN Service: Nursing Author Type: Registered Nurse Type: Nursing Progress Note Filed: 10/29/2023 18:29 Note Text: 1827 [place] [phone] to notify of patient's current temp of 100.2 F. Will continue to monitor. Normal [facility] NURSING PROG HNO ID: [id number] Author: BAILEY HUTSON RN Service: Nursing Author Type: Registered Nurse Type: Nursing Progress Note Filed: 10/29/2023 17:35 Note Text: Nursing Progress: Topic: RESTRAINT NON-VIOLENT PATIENT NAME: Johnny Devine Patient Location: H071 [id number]/[id number] Room: [place] [address] The patient demonstrates Attempting to Remove Medical [...] the patient's safety: Bed in Low/Locked Position, Horticultural Therapist/Sitter, Diversion Activities, IV/Feeding Bag/Pump Out of Vision, [...] 2023 TIME: 5:07 PM Bailey Hutson RN [facility] NURSING PROG HNO ID: [id number] Author: BAILEY HUTSON RN Service: Nursing Author Type: Registered Nurse Type: Nursing Progress Note Filed: 10/29/2023 15:25 Note Text: 1518 [place] [phone] to request indwelling Haskins for incontinence and skin breakdown management. Will continue to monitor. 1523 Patient repeatedly attempt to remove NG tube despite the sitter at the bedside. Primary team notified with request for order for bilateral soft wrist restraint. Will continue to monitor. [facility] NURSING PROG HNO ID: [id number] Author: OLIMPIA MAGALLON RN Service: Nursing Author Type: Registered Nurse Type: Nursing Progress Note Filed: 10/29/2023 13:37 Note Text: Pt resting quietly with patient machine maintenance supervisor at bedside. Several attempts to reach for NG tube, patient relaxes and moves hand away from from drain if you say hand down Per brother John Paul. This has been effective. Pt resting quietly, no facial grimacing, posturing, or guarding. Vss, resp rate even and non labored. Pt has returned to presurgical baseline and is being transferred back to [facility] in stable condition. Opening eyes when name is called. Brothcyrus Mandujano (guardian) updated prior to patient transfer. Normal [facility] OPERATIVE NOon 10-29-2023 OPERATIVE NO HNO ID: [id number] Author: SAMUEL ROBIN MD Service: General Surgery Author Type: Physician Type: Operative Report Filed: 10/29/2023 13:52 Note Text: OPERATIVE/PROCEDURE REPORT LOG ID: [id number] SURGERY/PROCEDURE DATE: 10/29/2023 INCISION/PROCEDURE START TIME: 10:25 AM INCISION CLOSE/PROCEDURE END TIME: 11:40 AM SURGEON(S)/PROCEDURAL IST(S) AND DISCOVERY MANAGER(S): Surgeon(s) and Role: * Samuel Robin [...] for the entirety of the case. Normal [facility] Phosphate SerPl-mCncon 10-28 Phosphate [Mass/Vol] 2.3 mg/dL Low 2.7-4.8 [facility] Comment on above: Order Comment: Speci men Type: BLOOD SPECIMEN Ordering Facility: [facility] Address: [address] [place] [address] Performed By: #### 2 777-1, 40865-3, 57695-0 #### [facility] CLIA [id number] [address] [place], [place] [address] [place] [address] [place] SEPSIS LACTATEon 10-29-2023 Lactate [Moles/Vol] 1.2 mmol/L Normal <=2.0 [facility] Comment on above: Order Comment: Speci men Type: BLOOD SPECIMENOrdering Facility: [facility] Address: [address] [place] [address] Performed By: #### S LACT ####[facility] [id number] [place] [address] [place] Order Comment: Speci men Type: BLOOD SPECIMEN Ordering Facility: [facility] Address: [address] [place] [address] Performed By: #### 2 777-1, 60128-1, #### [facility] CLIA [id number] [address] [place] [address] [place] Urinalysis complete panel (U )on 10-29-2023 Bacteria LM.HPF (Urine sed) [#/Area] Negative Normal Negative [facility] Comment on above: Order Comment: Speci men Type: BLOOD SPECIMEN Ordering Facility: [facility] Address: [address] [place] [address] Performed By: #### 2 777-1, 27361-2, #### [facility] CLIA [id number] [address] [place] [address] [place] Bilirubin Ql (U) Negative Normal Negative [facility] Comment on above: Order Comment: Speci men Type: BLOOD SPECIMEN Ordering Facility: [facility] Address: [address] [place] [address] Performed By: #### 2 777-1, 62858-2, #### [facility] CLIA [id number] [address] [place] [address] [place] Clarity (Unsp spec) Clear Normal Clear [facility] Comment on above: Order Comment: Speci men Type: BLOOD SPECIMEN Ordering Facility: [facility] Address: [address] [place] [address] Performed By: #### 2 777-1, 63314-0, #### [facility] CLIA [id number] [address] [place] [address] [place] Color (U) Yellow Normal Yellow [facility] Comment on above: Order Comment: Speci men Type: BLOOD SPECIMEN Ordering Facility: [facility] Address: [address] [place] [address] Performed By: #### 2 777-1, , #### [facility] CLIA [id number] [address] [place] [address] [place] Epithelial cells LM.HPF (Urine sed) [#/Area] None Seen Normal [facility] Comment on above: Order Comment: Speci men Type: BLOOD SPECIMEN Ordering Facility: [facility] Address: [address] [place] [address] Performed By: #### 2 777-1, , #### [facility] CLIA [id number] [address] [place] [address] [place] Glucose Test strip (U) [Mass/Vol] Negative Normal Negative [facility] Comment on above: Order Comment: Speci men Type: BLOOD SPECIMEN Ordering Facility: [facility] Address: [address] [place] [address] Performed By: #### 2 777-1, , #### [facility] CLIA [id number] [address] [place], [place] [address] [place] Hemoglobin Ql (U) 2+ Abnormal Negative [facility] Comment on above: Order Comment: Speci men Type: BLOOD SPECIMEN Ordering Facility: [facility] Address: [address] [place] [address] Performed By: #### 2 777-1, 19479-8, #### [facility] CLIA [id number] [address] [place] [address] [place] Hyaline casts (Urine sed) [#/Area] 0 /[LPF] Normal 0 /LPF [facility] Comment on above: Order Comment: Speci men Type: BLOOD SPECIMEN Ordering Facility: [facility] Address: [address] [place] [address] Performed By: #### 2 777-1, 94658-3, #### [facility] CLIA [id number] [address] [place] [address] [place] Ketones Ql (U) Negative Normal Negative [facility] Comment on above: Order Comment: Speci men Type: BLOOD SPECIMEN Ordering Facility: [facility] Address: [address] [place] [address] Performed By: #### 2 777-1, , #### [facility] CLIA [id number] [address] [place] [address] [place] Leukocyte esterase Test strip Ql (U) Negative Normal Negative [facility] Comment on above: Order Comment: Speci men Type: BLOOD SPECIMEN Ordering Facility: [facility] Address: [address] [place] [address] Performed By: #### 2 777-1, , #### [facility] CLIA [id number] [address] [place] [address] [place] Nitrite Ql (U) Negative Normal Negative [facility] Comment on above: Order Comment: Speci men Type: BLOOD SPECIMEN Ordering Facility: [facility] Address: [address] [place] [address] Performed By: #### 2 777-1, , #### [facility] CLIA [id number] [address] [place] [address] [place] pH (U) 6.5 [pH] Normal <8.5 [facility] Comment on above: Order Comment: Speci men Type: BLOOD SPECIMEN Ordering Facility: [facility] Address: [address] [place] [address] Performed By: #### 2 777-1, 23137-0, #### [facility] CLIA [id number] [address] [place] [address] [place] Protein (U) [Mass/Vol] Trace Abnormal Negative [facility] Comment on above: Order Comment: Speci men Type: BLOOD SPECIMEN Ordering Facility: [facility] Address: [address] [place] [address] Performed By: #### 2 777-1, 61214-2, #### [facility] CLIA [id number] [address] [place] [address] [place] RBC LM.HPF (Urine sed) [#/Area] 6-10 /HPF Abnormal 0-2 /HPF [facility] Comment on above: Order Comment: Speci men Type: BLOOD SPECIMEN Ordering Facility: [facility] Address: [address] [place] [address] Performed By: #### 2 777-1, , #### [facility] CLIA [id number] [address] [place] [address] [place] Specific gravity (U) [Rel density] 1.021 Normal 1.005-1.030 [facility] Comment on above: Order Comment: Speci men Type: BLOOD SPECIMEN Ordering Facility: [facility] Address: [address] [place] [address] Performed By: #### 2 777-1, 68471-2, #### [facility] CLIA [id number] [address] [place] [address] [place] Urobilinogen Ql (U) 0.2 EU/dL Normal 0.2-1.0 EU/dL [facility] Comment on above: Order Comment: Speci men Type: BLOOD SPECIMEN Ordering Facility: [facility] Address: [address] [place] [address] Performed By: #### 2 777-1, 26164-2, #### [facility] CLIA [id number] [address] [place] [address] [place] WBC LM.HPF (Urine sed) [#/Area] 0-5 /HPF Normal 0-5 /HPF [facility] Comment on above: Order Comment: Speci men Type: BLOOD SPECIMEN Ordering Facility: [facility] Address: [address] [place] [address] Performed By: #### 2 777-1, 48050-4, #### [facility] CLIA [id number] [address] [place] [address] [place] XR CHEST 1V [...] are unremarkable. Other: . IMPRESSION: See result. Product Craftsman: PSCB Transcribe Date/Time: Oct 29 2023 12:20A Dictated by : SHEA WORTHY MD This examination was interpreted and the report reviewed and electronically signed by: SHEA WORTHY MD on Oct 29 2023 12:22AM EST [id number] Normal [facility] aPTT PPPon 10-29-2023 aPTT Coag (PPP) [Time] 26.3 s Normal 23.0-32.4 [facility] Comment on above: Order Comment: Speci men Type: BLOOD SPECIMEN Ordering Facility: [facility] Address: [address] [place] [address] Performed By: #### 2 777-1, 74826-0, #### [facility] CLIA [id number] [address] [place] [address] [place] Basic metabolic 2000 panelon 10-28-2023 Anion gap [Moles/Vol] 12 mmol/L Normal 9-18 [facility] Comment on above: Order Comment: Speci men Type: BLOOD SPECIMEN Ordering Facility: [facility] Address: [address] [place] [address] Performed By: #### 2 777-1, 41991-5, #### [facility] CLIA [id number] [address] [place] [address] [place] Calcium [Mass/Vol] 7.8 mg/dL Low 8.5-10.2 [facility] Comment on above: Order Comment: Speci men Type: BLOOD SPECIMEN Ordering Facility: [facility] Address: [address] [place] [address] Performed By: #### 2 777-1, 23899-1, #### [facility] CLIA [id number] [address] [place] [address] [place] Chloride [Moles/Vol] 110 mmol/L High 97-105 [facility] Comment on above: Order Comment: Speci men Type: BLOOD SPECIMEN Ordering Facility: [facility] Address: [address] [place] [address] Performed By: #### 2 777-1, 92011-4, #### [facility] CLIA [id number] [address] [place] [address] [place] CO2 [Moles/Vol] 15 mmol/L Low 22-30 [facility] Comment on above: Order Comment: Speci men Type: BLOOD SPECIMEN Ordering Facility: [facility] Address: [address] [place] [address] Performed By: #### 2 777-1, 78817-9, #### [facility] CLIA [id number] [address] [place] [address] [place] Creatinine [Mass/Vol] 0.72 mg/dL Low 0.73-1.22 [facility] Comment on above: Order Comment: Speci men Type: BLOOD SPECIMEN Ordering Facility: [facility] Address: [address] [place] [address] Performed By: #### 2 777-1, 51822-8, #### [facility] CLIA [id number] [address] [place] [address] [place] Creatinine and Glomerular filtration rate.predicted panel (S/P/Bld) 125 mL/min/1.73m??? Normal >=60 [facility] Comment on above: Order Comment: Sana zuñiga Type: BLOOD SPECIMEN Ordering Facility: [facility] Address: [address] [place] [address] Result Comment: Lor mated Glomerular Filtration Rate [...] actual GFR. Performed By: #### 2 777-1, 17390-8, #### [facility] CLIA [id number] [address] [place] [address] [place] Glucose [Mass/Vol] 116 mg/dL High 74-99 [facility] Comment on above: Order Comment: Speci men Type: BLOOD SPECIMEN Ordering Facility: [facility] Address: [address] [place], [place] [id number] Result Comment: The [place] Diabetes Association (ADA) provides guidance for cutoff [...] Standards of Medical Care in Diabetes 2016, [place] [employer]. Diabetes Care. 2016.39(Suppl 1). Performed By: #### 2 777-1, 32818-0, #### [facility] CLIA [id number] [address] [place] [address] [place] Potassium [Moles/Vol] 3.9 mmol/L Normal 3.7-5.1 [facility] Comment on above: Order Comment: Sana zuñiga Type: BLOOD SPECIMEN Ordering Facility: [facility] Address: [address] [place] [address] Performed By: #### 2 777-1, , #### [facility] CLIA [id number] [address] [place] [address] [place] Sodium [Moles/Vol] 137 mmol/L Normal 136-144 [facility] Comment on above: Order Comment: Sana zuñiga Type: BLOOD SPECIMEN Ordering Facility: [facility] Address: [address] [place] [address] Performed By: #### 2 777-1, , #### [facility] CLIA [id number] [address] [place], [place] [address] [place] Urea nitrogen [Mass/Vol] 17 mg/dL Normal 9-24 [facility] Comment on above: Order Comment: Speci men Type: BLOOD SPECIMEN Ordering Facility: [facility] Address: [address] [place] [address] Performed By: #### 2 777-1, 79902-0, #### [facility] CLIA [id number] [address] [place], [place] [address] [place] CBC W Auto Differential pane l (Bld)on 10-28-2023 Basophils (Bld) [#/Vol] 10*3/uL Normal <0.11 [facility] Comment on above: Order Comment: Speci men Type: BLOOD SPECIMEN Ordering Facility: [facility] Address: [address] [place] [address] Performed By: #### 2 777-1, 63231-4, #### [facility] CLIA [id number] [address] [place] [address] [place] Basophils/100 WBC (Bld) 0.1 % Normal [facility] Comment on above: Order Comment: Speci men Type: BLOOD SPECIMEN Ordering Facility: [facility] Address: [address] [place] [address] Performed By: #### 2 777-1, 87285-2, #### [facility] CLIA [id number] [address] [place] [address] [place] Differential cell count method Nom (Bld) Auto Normal [facility] Comment on above: Order Comment: Speci men Type: BLOOD SPECIMEN Ordering Facility: [facility] Address: [address] [place] [address] Performed By: #### 2 777-1, 44247-2, #### [facility] CLIA [id number] [address] [place], [place] [address] [place] Eosinophils (Bld) [#/Vol] 10*3/uL Normal <0.46 [facility] Comment on above: Order Comment: Speci men Type: BLOOD SPECIMEN Ordering Facility: [facility] Address: [address] [place] [address] Performed By: #### 2 777-1, 93490-4, #### [facility] CLIA [id number] [address] [place] [address] [place] Eosinophils/100 WBC (Bld) 0.0 % Normal [facility] Comment on above: Order Comment: Speci men Type: BLOOD SPECIMEN Ordering Facility: [facility] Address: [address] [place] [address] Performed By: #### 2 777-1, 17713-5, #### [facility] CLIA [id number] [address] [place] [address] [place] Erythrocyte distribution width (RBC) [Ratio] 14.4 % Normal 11.5-15.0 [facility] Comment on above: Order Comment: Speci men Type: BLOOD SPECIMEN Ordering Facility: [facility] Address: [address] [place] [address] Performed By: #### 2 777-1, 01924-8, #### [facility] CLIA [id number] [address] [place] [address] [place] Hematocrit (Bld) [Volume fraction] 38.3 % Low 39.0-51.0 [facility] Comment on above: Order Comment: Speci men Type: BLOOD SPECIMEN Ordering Facility: [facility] Address: [address] [place], [place] [id number] Performed By: #### 2 777-1, 92807-0, #### [facility] CLIA [id number] [address] [place] [address] [place] Hemoglobin (Bld) [Mass/Vol] 12.0 g/dL Low 13.0-17.0 [facility] Comment on above: Order Comment: Speci men Type: BLOOD SPECIMEN Ordering Facility: [facility] Address: [address] [place] [address] Performed By: #### 2 777-1, 07060-4, #### [facility] CLIA [id number] [address] [place] [address] [place] Immature granulocytes (Bld) [#/Vol] 0.08 10*3/uL Normal <0.10 [facility] Comment on above: Order Comment: Speci men Type: BLOOD SPECIMEN Ordering Facility: [facility] Address: [address] [place] [address] Performed By: #### 2 777-1, 91821-9, #### [facility] CLIA [id number] [address] [place] [address] [place] Immature granulocytes/100 WBC (Bld) 0.6 % Normal [facility] Comment on above: Order Comment: Speci men Type: BLOOD SPECIMEN Ordering Facility: [facility] Address: [address] [place] [address] Performed By: #### 2 777-1, 02703-2, #### [facility] CLIA [id number] [address] [place] [address] [place] Lymphocytes (Bld) [#/Vol] 1.19 10*3/uL Normal 1.00-4.00 [facility] Comment on above: Order Comment: Speci men Type: BLOOD SPECIMEN Ordering Facility: [facility] Address: [address] [place] [address] Performed By: #### 2 777-1, 40405-2, #### [facility] CLIA [id number] [address] [place] [address] [place] Lymphocytes/100 WBC (Bld) 8.2 % Normal [facility] Comment on above: Order Comment: Speci men Type: BLOOD SPECIMEN Ordering Facility: [facility] Address: [address] [place] [address] Performed By: #### 2 777-1, 38437-7, #### [facility] CLIA [id number] [address] [place] [address] [place] MCH (RBC) [Entitic mass] 26.5 pg Normal 26.0-34.0 [facility] Comment on above: Order Comment: Speci men Type: BLOOD SPECIMEN Ordering Facility: [facility] Address: [address] [place] [address] Performed By: #### 2 777-1, 13456-2, #### [facility] CLIA [id number] [address] [place] [address] [place] MCHC (RBC) [Mass/Vol] 31.3 g/dL Normal 30.5-36.0 [facility] Comment on above: Order Comment: Speci men Type: BLOOD SPECIMEN Ordering Facility: [facility] Address: [address] [place] [address] Performed By: #### 2 777-1, 22040-6, #### [facility] CLIA [id number] [address] [place] [address] [place] MCV (RBC) [Entitic vol] 84.5 fL Normal 80.0-100.0 [facility] Comment on above: Order Comment: Speci men Type: BLOOD SPECIMEN Ordering Facility: [facility] Address: [address] [place] [address] Performed By: #### 2 777-1, 43705-8, #### [facility] CLIA [id number] [address] [place] [address] [place] Monocytes (Bld) [#/Vol] 1.48 10*3/uL High <0.87 [facility] Comment on above: Order Comment: Speci men Type: BLOOD SPECIMEN Ordering Facility: [facility] Address: [address] [place] [address] Performed By: #### 2 777-1, 44464-7, #### [facility] CLIA [id number] [address] [place] [address] [place] Monocytes/100 WBC (Bld) 10.2 % Normal [facility] Comment on above: Order Comment: Speci men Type: BLOOD SPECIMEN Ordering Facility: [facility] Address: [address] [place] [address] Performed By: #### 2 777-1, 59647-3, #### [facility] CLIA [id number] [address] [place] [address] [place] Neutrophils (Bld) [#/Vol] 11.69 10*3/uL High 1.45-7.50 [facility] Comment on above: Order Comment: Speci men Type: BLOOD SPECIMEN Ordering Facility: [facility] Address: [address] [place] [address] Performed By: #### 2 777-1, 01252-7, #### [facility] CLIA [id number] [address] [place] [address] [place] Neutrophils/100 WBC (Bld) 80.9 % Normal [facility] Comment on above: Order Comment: Speci men Type: BLOOD SPECIMEN Ordering Facility: [facility] Address: [address] [place] [address] Performed By: #### 2 777-1, 14450-9, #### [facility] CLIA [id number] [address] [place], [place] [address] [place] Nucleated RBC (Bld) [#/Vol] 10*3/uL Normal <0.01 [facility] Comment on above: Order Comment: Speci men Type: BLOOD SPECIMEN Ordering Facility: [facility] Address: [address] [place] [address] Performed By: #### 2 777-1, , #### [facility] CLIA [id number] [address] [place] [address] [place] Nucleated RBC/100 WBC (Bld) [Ratio] 0.0 /100 WBC Normal [facility] Comment on above: Order Comment: Speci men Type: BLOOD SPECIMEN Ordering Facility: [facility] Address: [address] [place] [address] Performed By: #### 2 777-1, 99069-7, #### [facility] CLIA [id number] [address] [place], [place] [address] [place] Platelet mean volume (Bld) [Entitic vol] 9.3 fL Normal 9.0-12.7 [facility] Comment on above: Order Comment: Speci men Type: BLOOD SPECIMEN Ordering Facility: [facility] Address: [address] [place] [address] Performed By: #### 2 777-1, , #### [facility] CLIA [id number] [address] [place] [address] [place] Platelets (Bld) [#/Vol] 180 10*3/uL Normal 150-400 [facility] Comment on above: Order Comment: Speci men Type: BLOOD SPECIMEN Ordering Facility: [facility] Address: [address] [place] [address] Performed By: #### 2 777-1, , #### [facility] CLIA [id number] [address] [place] [address] [place] RBC (Bld) [#/Vol] 4.53 10*6/uL Normal 4.20-6.00 [facility] Comment on above: Order Comment: Speci men Type: BLOOD SPECIMEN Ordering Facility: [facility] Address: [address] [place] [address] Performed By: #### 2 777-1, 88158-6, #### [facility] CLIA [id number] [address] [place] [address] [place] WBC (Bld) [#/Vol] 14.46 10*3/uL High 3.70-11.00 [facility] Comment on above: Order Comment: Speci men Type: BLOOD SPECIMEN Ordering Facility: [facility] Address: [address] [place] [address] Performed By: #### 2 777-1, 29283-3, #### [facility] CLIA [id number] [address] [place] [address] [place] HISTORY PHYSICALon HISTORY PHYSICAL HNO ID: [id number] Author: SAMUEL ROBIN MD Service: General Surgery [...] No a (more content not included)... Normal [facility] Magnesium [Mass/Vol] 1.8 mg/dL Normal 1.7-2.3 [facility] Comment on above: Order Comment: Sana zuñiga Type: BLOOD SPECIMEN Ordering Facility: [facility] Address: [address] [place] [address] Performed By: #### 2 777-1, 75209-4, #### [facility] CLIA [id number] [address] [place] [address] [place] PT panel Coag (PPP)on 2023 INR Coag (PPP) [Relative time] 1.2 {INR} Normal 0.9-1.3 [facility] Comment on above: Order Comment: Sana zuñiga Type: BLOOD SPECIMEN Ordering Facility: [facility] Address: [address] [place] [address] Result Comment: Winnie min K Antagonist (VKA) Therapeutic Range: INR 2 to 3 (Target INR of 2.5) Note: For patients treated with VKA drugs, such as warfarin, the [place] [employer] 2012 Guideline recommends [...] Chest 2012, 141:7S-47S Jonny RA et al. [facility] 2017, 70: 252-289 Performed By: #### 2 777-1, 77171-4, #### [facility] CLIA [id number] [address] [place] [address] [place] PT Coag (PPP) [Time] 12.3 s Normal 9.7-13.0 [facility] Comment on above: Order Comment: Sana zuñiga Type: BLOOD SPECIMEN Ordering Facility: [facility] Address: [address] [place] [address] Performed By: #### 2 777-1, 02441-2, #### [facility] CLIA [id number] [address] [place] [address] [place] Phosphate SerPl-mCncon 10-27 Phosphate [Mass/Vol] 3.2 mg/dL Normal 2.7-4.8 [facility] Comment on above: Order Comment: Speci men Type: BLOOD SPECIMEN Ordering Facility: [facility] Address: [address] [place] [address] Performed By: #### 2 777-1, 25397-7, #### [facility] CLIA [id number] [address] [place] [address] [place] SEPSIS LACTATEon 10-28-2023 Lactate [Moles/Vol] 2.0 mmol/L Normal <=2.0 [facility] Comment on above: Order Comment: Speci men Type: BLOOD SPECIMENOrdering Facility: [facility] Address: [address] [place] [address] Performed By: #### S LACT ####[facility] [id number] [place] [address] [place] TYPE + SCREENon 10-28-2023 ABO A Normal [facility] Comment on above: Order Comment: Speci men Type: BLOOD SPECIMEN Ordering Facility: [facility] Address: [address] [place] [address] Performed By: #### 2 4321-2, 72938-9, 2777-1 #### [facility] CLIA [id number] [address] [place] [address] [place] HISTORICAL AB SCR STATUS Negative Normal [facility] Comment on above: Order Comment: Speci men Type: BLOOD SPECIMEN Ordering Facility: [facility] Address: [address] [place] [address] Performed By: #### 2 4321-2, 66742-2, 2777-1 #### [facility] CLIA [id number] [address] [place], [place] [address] [place] Rh Nom (Bld) Positive Normal [facility] Comment on above: Order Comment: Speci men Type: BLOOD SPECIMEN Ordering Facility: [facility] Address: [address] [place] [address] Performed By: #### 2 4321-2, 26164-4, 277- #### [facility] CLIA [id number] [address] [place], [place] [address] [place] TYPE AND SCREEN EXPIRATION 10/31/2023 23:59 Normal [facility] Comment on above: Order Comment: Speci men Type: BLOOD SPECIMEN Ordering Facility: [facility] Address: [address] [place] [address] Performed By: #### 2 4321-2, , 2777 #### [facility] CLIA [id number] [address] [place], [place] [address] [place] XR ABDOMEN 1V [...] right lower quadrant on the outside CT). Product Craftsman: PSCB Transcribe Date/Time: Oct 28 2023 5:30P Dictated by : WALTER BURGER MD This examination was interpreted and the report reviewed and electronically signed by: WALTER BURGER MD on Oct 28 2023 5:47PM EST [id number] Normal [facility] Anesthesia Preprocedure Dwaine menchaca 07-16-2023 Steward/Stewardess Authentication Interface Message Text ASA: 2 No [...] were discussed with the patient and/or legal entry level marketing representative. The risks, benefits and alternatives were reviewed. Questions regarding anesthesia were answered. Patient and/or legal entry level marketing representative knows such anesthetics and procedures may be performed by Resident physicians, Certified Anesthesiologist Assistants, or Certified Nurse Anesthetists under the supervision of a physician. The patient /or the patient's legal entry level marketing representative agree with the plan for anesthesia. [...] with his caregiver who understood. Normal [facility] BASIC METABOLIC PANELon 11-2 Anion gap [Moles/Vol] 15 mmol/L Normal 10-20 [facility] Comment on above: Performed By: #### C H8 ####[facility] [address] [place], [address] Calcium [Mass/Vol] 9.6 mg/dL Normal 8.6-10.3 [facility] Comment on above: Result Comment: Note updated reference ranges. Performed By: #### C H8 ####[facility] [address] [place] [address], [address] Chloride [Moles/Vol] 104 mmol/L Normal 98-107 [facility] Comment on above: Result Comment: Note updated reference ranges. Performed By: #### C H8 ####[facility] [address] [place], [address] CO2 [Moles/Vol] 25 mmol/L Normal 21-31 [facility] Comment on above: Result Comment: Note updated reference ranges. Performed By: #### C H8 ####[facility] [address] [place], [address] Creatinine [Mass/Vol] 0.94 mg/dL Normal 0.70-1.30 [facility] Comment on above: Result Comment: Note updated reference ranges. Performed By: #### C H8 ####[facility] [id number] [place] [address], [address] ESTIMATED GFR (CKD-EPI) 112 mL/min/1.73sqm Normal >=60 [...] Inclusion of Race in Diagnosing Kidney Disease. [place] Journal of Kidney Diseases 2021;79(2):268-88.e1. 2. N Engl J Med 1 Vol. 385 Issue 19 Pages 1216-9676 Performed By: #### C H8 ####[facility] [address] [place], [address] Glucose [Mass/Vol] 84 mg/dL Normal 74-109 [facility] Comment on above: Performed By: #### C H8 ####[facility] [address] [place], [address] Potassium [Moles/Vol] 4.9 mmol/L Normal 3.5-5.0 [facility] Comment on above: Result Comment: Note updated reference ranges. Note updated reference ranges. Performed By: #### C H8 ####[facility] [address] [place], [address] Sodium [Moles/Vol] 139 mmol/L Normal 136-145 [facility] Comment on above: Result Comment: Note updated reference ranges. Performed By: #### C H8 ####[facility] [address] [place], [address] Urea nitrogen [Mass/Vol] 21 mg/dL Normal 7-25 [facility] Comment on above: Result Comment: Note updated reference ranges. Performed By: #### C H8 ####[facility] [address] [place], [address] Basic metabolic 2000 panelOr dered By: Vandana [...] Inclusion of Race in Diagnosing Kidney Disease. [place] Journal of Kidney Diseases 2021;79(2):268-88.e1. 2. N Engl J Med 2020 Vol. 385 Issue 19 Pages 6777-1374 Glucose [Mass/Vol] 84 mg/dL 74 - 109 [...] ce ranges. [facility] Brief Operative Noteon 07-16 Steward/Stewardess Authentication Interface Message Text Cancelled Case was cancelled. Pt has very low heart rate, that compromises GA/ per anesthesia team. Normal [facility] CBC WITH DIFFERENTIALon 06-21 Basophils (Bld) [#/Vol] 0.10 10*3/uL Normal 0.00-0.20 [facility] Comment on above: Performed By: #### C BCDSAT ####[facility] [address] [place], [address] Basophils/100 WBC (Bld) 0.6 % Normal <=1.9 [facility] Comment on above: Performed By: #### C BCDSAT ####[facility] [address] [place], [address] Eosinophils (Bld) [#/Vol] 0.30 10*3/uL Normal 0.00-0.70 [facility] Comment on above: Performed By: #### C BCDSAT ####[facility] [address] [place] [address], [address] Eosinophils/100 WBC (Bld) 3.1 % Normal 0.1-4.0 [facility] Comment on above: Performed By: #### C BCDSAT ####[facility] [address] [place] [address], [address] Erythrocyte distribution width (RBC) [Ratio] 14.2 % Normal 11.5-14.5 [facility] Comment on above: Performed By: #### C BCDSAT ####[facility] [address] [place] [address], [address] Hematocrit (Bld) [Volume fraction] 38.4 % Low 41.0-53.0 [facility] Comment on above: Performed By: #### C BCDSAT ####[facility] [address] [place] [address], [address] Hemoglobin (Bld) [Mass/Vol] 12.6 g/dL Low 13.9-16.3 [facility] Comment on above: Performed By: #### C BCDSAT ####[facility] [address] [place] [address], [address] Lymphocytes (Bld) [#/Vol] 3.20 10*3/uL Normal 1.00-4.80 [facility] Comment on above: Performed By: #### C BCDSAT ####[facility] [address] [place] [address], [address] Lymphocytes/100 WBC (Bld) 36.8 % Normal 24.0-44.0 [facility] Comment on above: Performed By: #### C BCDSAT ####[facility] [address] [place] [address], [address] MCH (RBC) [Entitic mass] 27.4 pg Normal 26.0-34.0 [facility] Comment on above: Performed By: #### C BCDSAT ####[facility] [address] [place], [address] MCHC (RBC) [Mass/Vol] 32.8 g/dL Normal 32.0-35.9 [facility] Comment on above: Performed By: #### C BCDSAT ####[facility] [address] [place] [address], [address] MCV (RBC) [Entitic vol] 84 fL Normal 80-100 [facility] Comment on above: Performed By: #### C BCDSAT ####[facility] [address] [place] [address], [address] Monocytes (Bld) [#/Vol] 0.80 10*3/uL Normal 0.20-1.00 [facility] Comment on above: Performed By: #### C BCDSAT ####[facility] [address] [place] [address], [address] Monocytes/100 WBC (Bld) 8.9 % Normal 2.0-11.0 [facility] Comment on above: Performed By: #### C BCDSAT ####[facility] [address] [place] [address], [address] Neutrophils (Bld) [#/Vol] 4.40 10*3/uL Normal 1.50-8.00 [facility] Comment on above: Performed By: #### C BCDSAT ####[facility] [address] [place] [address], [address] Neutrophils/100 WBC (Bld) 50.6 % Normal 31.0-76.0 [facility] Comment on above: Performed By: #### C BCDSAT ####[facility] [address] [place] [address], [address] Nucleated RBC (Bld) [#/Vol] 0.1 10*3/uL Normal [facility] Comment on above: Performed By: #### C BCDSAT ####[facility] [address] [place] [address], [address] Nucleated RBC (Bld) [#/Vol] 0.01 10*3/uL Normal [facility] Comment on above: Performed By: #### C BCDSAT ####[facility] [address] [place], [address] Platelet mean volume (Bld) [Entitic vol] 9.1 fL Normal 7.5-11.2 [facility] Comment on above: Performed By: #### C BCDSAT ####[facility] [address] [place] [address], [address] PLT Normal [facility] Comment on above: Result Comment: Plat elet cannot be quantified due to the presence of platelet clumps. Platelet estimate appears normal. Performed By: #### C BCDSAT ####[facility] [address] [place] [address], [address] RBC (Bld) [#/Vol] 4.59 10*6/uL Normal 4.50-5.90 [facility] Comment on above: Performed By: #### C BCDSAT ####[facility] [address] [place] [address], [address] WBC (Bld) [#/Vol] 8.6 10*3/uL Normal 4.5-11.5 [facility] Comment on above: Performed By: #### C BCDSAT ####[facility] [address] [place] [address], [address] Basophils (Bld) [#/Vol] 0.10 10*3/uL 0.00 - [...] - 11.2 fL [facility] Platelets (Bld) [#/Vol] [facility] Comment on above: Platelet cannot be q uantified due to the presence of platelet clumps. Platelet estimate appears normal. RBC (Bld) [#/Vol] 4.59 10*6/uL [facility] WBC (Bld) [#/Vol] 8.6 10*3/uL 4.5 - 11.5 K/uL [facility]/O CONTRASTon 07-16 CT [...] left caudate nucleus. MACRO: None Normal [facility] CT Head WO contrastOrdered B y: David Kay on 07-16-2023 CT DLP 1126.71 (mGy.cm) [facility]: CT Series HEAD W/O,HEAD W/O [facility] Work Phone: CTDI VOL 0.34 (mGy),47.31 (mGy) [employer] Work Phone: PHANTOM TYPE IEC Head Dosimetry Phantom,IEC Head Dosimetry Phantom [employer] [employer] Work Phone: [employer] Work Phone: CT Head WO contraston 2022 [...] in the left caudate nucleus. MACRO: None [facility] Radiology Study observation (narrative) [facility] ED Noteson 07-16-2023 Steward/Stewardess Authentication Interface Message Text Permission treat given from Cate legal guardian Normal [facility] 07-16-20 Steward/Stewardess Authentication Interface Message Text EMERGENCY DEPARTMENT - VISIT NOTE --------- HISTORY OF PRESENT ILLNESS ----- Chief Complaint Patient presents with bradycardia Low HR (33) HIPAA: Verbal permission granted from patient to discuss case, including protected health information, in front of family / friends in room at the time of the evaluation. Americanization Teacher: not needed - patient preferred language is Cymraes. History from Independent Historian: Caregiver reports Pleasant [...] Performed By: #### M G #### [facility] [address] [place], [address] Interpretation and review of laboratory results Normal [facility] Magnesium [Mass/Vol] 2.1 mg/dL 1.6 - 2 .8 mg/dL [facility] OP Noteon 07-16-2023 Steward/Stewardess Authentication Interface Message Text Cancelled Case was cancelled. Pt has very low heart rate, that compromises GA/ per anesthesia team. Normal [facility] Progress Noteson 07-16-2023 Steward/Stewardess Authentication Interface Message Text ----- Sunday, July 16, 2023 at 1:56:53 PM ----- ----- Provider: [id number] Resident Fortino -- Clinic: [facility] ----- Patient was scheduled for OR today Patient had Bradycardia and hypotension for unknown reasons. Anaesthesia asked to cancel the OR for this patient today. [place]. OR ----- Signed on Monday, July 17, 2023 at 8:18:55 AM ----- ----- Provider: [id number] Jed Alicea DDS -- Clinic: [facility] ----- Normal [facility] Steward/Stewardess Authentication Interface Message Text 0800: pt's HR in the 30s. Per caregiver his behavior is baseline. Spoke with nurse at pt's residence and she stated baseline HR is in the 70s. Dr Olmstead aware and at bedside. EKG performed. Pt transferred to ED for further evaluation. Normal [facility] Lithiumon 07-06-2023 [place] [Moles/Vol] 0.9 mmol/L Invalid Interpretation Code 0.5-1.2 [facility] Comment on above: Result Comment: A co ncentration of 0.5-0.8 mmol/L is advised for long-term use; concentrations of up to 1.2 mmol/L may be necessary during acute treatment. Detection Limit = 0.1 <0.1 indicates None Detected Performed at: [address] [id number] PhD Agata Narayan Performed By: #### 2 254834, 8749098, 5893114, 8860383, 492855778, 1669317, 9482974, 73072092, 4263541 ####[facility] [address] [place] [address] CBC w/Indiceson 07-04-2023 Erythrocyte distribution width (RBC) [Ratio] 13.8 % Normal 10.9-14.2 [facility] Comment on above: Performed By: #### 2 090384, 2402482, 1769886, 5676981, 454679235, 4641112, 3585495, 48006999, 0841589 #### [facility] [address] [place] [address] Hematocrit (Bld) [Volume fraction] 38.1 % Normal 37.7-49.0 [facility] Comment on above: Performed By: #### 2 090148, 8046759, 5247147, 7545735, 630283188, 6917144, 7485797, 38478326, 8974060 #### [facility] [address] [place] [address] Hemoglobin (Bld) [Mass/Vol] 12.7 g/dL Low 13.5-17.5 [facility] Comment on above: Performed By: #### 2 767951, 8224760, 0050180, 0592452, 800699259, 9378486, 8868118, 52360922, 4212078 #### [facility] [address] [place] [address] MCH (RBC) [Entitic mass] 27.6 pg Normal 27.0-34.0 [facility] Comment on above: Performed By: #### 2 955411, 2826579, 0324665, 2252068, 735790676, 8045796, 1594163, 35910920, 5480695 #### [facility] [address] [place] [address] MCHC (RBC) [Mass/Vol] 33.3 g/dL Normal 31.4-36.0 [facility] Comment on above: Performed By: #### 2 719035, 0486652, 6272441, 3065794, 130788303, 2969181, 7682813, 27467654, 9606136 #### [facility] [address] [place] [address] MCV (RBC) [Entitic vol] 83.0 fL Normal 80.0-100.0 [facility] Comment on above: Performed By: #### 2 722424, 1725708, 1792871, 7971866, 395790363, 9681473, 1906389, 67700783, 8661607 #### [facility] [address] [place] [address] Platelet mean volume (Bld) [Entitic vol] 8.5 fL Normal 6.4-10.8 [facility] Comment on above: Performed By: #### 2 529279, 8020520, 1211695, 8375840, 835002027, 7930686, 0338841, 38107861, 3533520 #### [facility] [address] [place] [address] Platelets (Bld) [#/Vol] 175.0 E9/L Normal 150.0-500.0 [facility] Comment on above: Performed By: #### 2 551239, 2268435, 6275975, 9595853, 479877999, 4432614, 1628625, 89260628, 7719731 #### [facility] [address] [place] [address] RBC (Bld) [#/Vol] 4.6 E12/L Normal 4.3-5.9 [facility] Comment on above: Performed By: #### 2 679069, 0666725, 4742588, 8207483, 706749237, 7849753, 6097793, 62063879, 5337645 #### [facility] [address] [place] [address] WBC corrected for nucl RBC Auto (Bld) [#/Vol] 5.9 E9/L Normal 4.0-11.0 [facility] Comment on above: Performed By: #### 2 666092, 8438127, 5628970, 5304491, 188654233, 9982931, 4011174, 21349439, 2478195 #### [facility] [address] [place] [address] CHEMISTRYOrdered By: SYSTEM SYSTEM on 07-04-2023 25-hydroxyvitamin D3 [Mass/Vol] 33.7 ng/mL Normal 30.0 - 100.0 ng/mL [facility] Comment on above: Interpretive Data: Vitamin D deficiency has been defined as a level of serum 25-OH vitamin D less than 20 ng/mL (1,2) by the [place] of Medicine and an Endocrine Society practice guideline. The Endocrine Society further defined vitamin D insufficiency as a level between 21 and 29 ng/mL (2). 1. IOM ([place] of Medicine). 2010. Dietary reference intakes for [...] 118 mL/min/1.73 m2 Normal >=59mL/min/1 .73 m2 [facility] Chem S Comment on above: Interpretive Data: [...] 07-04-2023 Albumin [Mass/Vol] 3.7 g/dL Normal 3.3-5.0 [facility] Comment on above: Performed By: #### 2 006833, 9708708, 4922528, 6379004, 141831232, 5385509, 4917481, 89674858, 1806992 #### [facility] [address] [place] [address] Albumin/Globulin (S) [Mass conc ratio] 1.0 Low 1.1-2.2 [facility] Comment on above: Performed By: #### 2 886808, 9992877, 7501033, 3183912, 036658946, 4485311, 9072812, 28280025, 9263397 #### [facility] [address] [place] [address] ALP [Catalytic activity/Vol] 37 Int._Unit/L Normal 21-98 [facility] Comment on above: Performed By: #### 2 412102, 0446757, 2617270, 1703717, 675859628, 9015537, 6547661, 91098760, 2481723 #### [facility] [address] [place] [address] ALT No additional P-5'-P [Catalytic activity/Vol] 15 Int._Unit/L Normal 6-46 [facility] Comment on above: Performed By: #### 2 741257, 9063263, 3944828, 4505346, 792549696, 3385224, 2472826, 10161318, 6680581 #### [facility] [address] [place] [address] Anion gap [Moles/Vol] 12 mmol/L Normal 6-16 [facility] Comment on above: Performed By: #### 2 441331, 9017864, 7329635, 4312240, 719275123, 1236859, 9892205, 75673524, 3347157 #### [facility] [address] [place] [address] AST [Catalytic activity/Vol] 22 Int._Unit/L Normal 5-43 [facility] Comment on above: Performed By: #### 2 555082, 3349488, 6898115, 1796657, 088158711, 3096837, 3153509, 56409866, 4317143 #### [facility] [address] [place] [address] Bilirubin [Mass/Vol] 0.1 mg/dL Normal 0.0-1.[address] [facility] Comment on above: Performed By: #### 2 626436, 9905896, 2918805, 5319087, 422265526, 0198768, 6656081, 47361737, 5562852 #### [facility] [address] [place] [address] Calcium [Mass/Vol] 9.7 mg/dL Normal 8.9-11.1 [facility] Comment on above: Performed By: #### 2 747474, 4232556, 9269732, 3116536, 084100302, 6127175, 7568011, 29232252, 3500667 #### [facility] [address] [place] [address] Chloride [Moles/Vol] 108 mmol/L Normal 101-[address] [facility] Comment on above: Performed By: #### 2 413991, 0463721, 8204136, 1732351, 811736927, 8727188, 8007828, 28614232, 9633424 #### [facility] [address] [place] [address] CO2 [Moles/Vol] 23 mmol/L Normal 21-31 [facility] Comment on above: Performed By: #### 2 246419, 1366396, 9721944, 4064278, 869057070, 0825976, 5187733, 52852802, 1576795 #### [facility] [address] [place] [address] Creatinine [Mass/Vol] 0.9 mg/dL Normal 0.5-1.3 [facility] Comment on above: Performed By: #### 2 175707, 5900125, 8909895, 6666970, 989358867, 4729954, 9745465, 71447286, 0842139 #### [facility] [address] [place] [address] Globulin (S) [Mass/Vol] 3.8 g/dL Normal 1.4-4.0 [facility] Comment on above: Performed By: #### 2 399855, 2545922, 9216763, 7266783, 823527748, 6836508, 2179875, 75075172, 8550826 #### [facility] [address] [place] [address] Glucose [Mass/Vol] 86 mg/dL Normal 55-199 [facility] Comment on above: Result Comment: If t his glucose result represents a fasting glucose, interpretation should refer to the following reference range: 55-99 mg/dL Performed By: #### 2 859462, 0042732, 6113710, 2441031, 241162153, 1709177, 5694979, 96202526, 4630299 #### [facility] [address] [place] [address] Potassium [Moles/Vol] 4.3 mmol/L Normal 3.5-5.3 [facility] Comment on above: Performed By: #### 2 820098, 1992521, 1382135, 3965839, 518024767, 1856656, 6463571, 14274258, 7204242 #### [facility] [address] [place] [address] Protein [Mass/Vol] 7.5 g/dL Normal 6.0-7.8 [facility] Comment on above: Performed By: #### 2 980276, 8978936, 5913095, 3875896, 871258315, 3806799, 5226409, 65650795, 9869260 #### [facility] [address] [place] [address] Sodium [Moles/Vol] 139 mmol/L Normal 135-145 [facility] Comment on above: Performed By: #### 2 339966, 1334662, 9127764, 5932124, 299981005, 2074584, 7803490, 81902852, 9122215 #### [facility] [address] [place] [address] Urea nitrogen [Mass/Vol] 20 mg/dL Normal 5-21 [facility] Comment on above: Performed By: #### 2 984667, 4449879, 9195562, 8737701, 650782845, 1271637, 1724924, 43094201, 9533424 #### [facility] [address] [place] [address] Urea nitrogen/Creatinine [Mass ratio] 22 No Units High 10-20 [facility] Comment on above: Performed By: #### 2 555982, 6274055, 9969812, 4496471, 341270757, 0861990, 8521039, 99008690, 3037195 #### [facility] [address] [place] [address] Free T4on 07-04-2023 Free T4 [Mass/Vol] 0.70 ng/dL Normal 0.58-1.64 [facility] Comment on above: Performed By: #### 2 955494, 6445808, 5831783, 5857401, 373027967, 9405224, 8276145, 57069718, 1914393 #### [facility] [address] [place] [address] HEMATOLOGYOrdered By: Jersey Arnett on 07-04-2023 Erythrocyte [...] 07-04-2023 Cholesterol [Mass/Vol] 145 mg/dL Normal 120-200 [facility] Comment on above: Performed By: #### 2 853684, 7404874, 9201923, 7032830, 863861708, 6940131, 4229442, 22261030, 8834839 #### [facility] [address] [place] [address] Cholesterol in HDL [Mass/Vol] 40 mg/dL Invalid Interpretation Code [facility] Comment on above: Result Comment: HDL > or equal to 60 mg/dL: Low cardiovascular risk HDL < 40 mg/dL : High cardiovascular risk Performed By: #### 2 820422, 5338379, 7211921, 0960184, 240374899, 8795104, 6984470, 95760114, 6282650 #### [facility] [address] [place] [address] Cholesterol in LDL [Mass/Vol] 86 mg/dL Normal <=129 [facility] Comment on above: Performed By: #### 2 829725, 1768087, 9099067, 0317061, 559231517, 6850807, 1324672, 63423906, 2421638 #### [facility] [address] [place] [address] Cholesterol in VLDL [Mass/Vol] 27 mg/dL Normal 7-40 [facility] Comment on above: Performed By: #### 2 446557, 3690189, 2390505, 8315941, 251630889, 9052849, 1009110, 06645164, 9093389 #### [facility] [address] [place] [address] Triglyceride [Mass/Vol] 133 mg/dL Normal <=149 [facility] Comment on above: Performed By: #### 2 427279, 7131884, 0008327, 3734438, 798366376, 1104686, 3584459, 50671425, 2884751 #### [facility] [address] [place] [address] Physician Orderon 07-04-2023 Physician Order [id number]# 1.00TIFF Normal [facility] TSHon 07-04-2023 TSH Qn 2.75 m[IU]/L Normal 0.34-5.60 [facility] Comment on above: Performed By: #### 2 290370, 7485393, 0549115, 8435065, 742414731, 9569152, 4437976, 30597895, 6047370 #### [facility] [address] [place] [address] Valproic Acidon 07-04-2023 Valproate [Moles/Vol] 79 microgram/mL Normal 50-99 [facility] Comment on above: Performed By: #### 2 096880, 4343270, 9326679, 0023450, 481445556, 9347468, 9766416, 93840264, 5841010 #### [facility] [address] [place] [address] Vitamin D 25 Hydroxyon 07-04 25-hydroxyvitamin D3 [Mass/Vol] 33.7 ng/mL Normal 30.0-100.0 [facility] Comment on above: Result Comment: Vit alfredo D deficiency has been defined as a level of serum 25-OH vitamin D less than 20 ng/mL (1,2) by the [place] of Medicine and an Endocrine Society practice guideline. The Endocrine Society further defined vitamin D insufficiency as a level between 21 and 29 ng/mL (2). 1. IOM ([place] of Medicine). 2010. Dietary reference intakes for calcium and D. [place]: The National Academies Press. 2. Denia MF, Marcelino [place], Ann GARVEY, et al. Evaluation, treatment, and prevention of vitamin D deficiency: an Endocrine Society clinical practice guideline. JCEM. 2010; 96 (7):1911-30. Performed By: #### 2 975365, 6869767, 0434666, 5211208, 390771326, 3354229, 3446044, 64283054, 5565099 #### [facility] [address] [place] [address] eGFRon 07-04-2023 GFR/1.73 sq M.predicted among non-blacks MDRD (S/P/Bld) [Vol rate/Area] 118 mL/min/1.73 m2 Normal >=59 [facility] Comment on above: Order Comment: Order added by Discern Expert. Result Comment: Hematology Technician jenni kidney disease could be indicated at eGFR's of less than 60 mL/min/1.73m2. Kidney failure is indicated at less than 15 mL/min/1.73m2. Performed By: #### 2 649487, 5583393, 5874954, 5525151, 330048235, 2515818, 1478282, 78272560, 4925257 #### [facility] [address] [place] [address] Telephone Encounteron 2022 Steward/Stewardess Authentication Interface Message Text Informed Consent for dental surgery AND Anesthesia consent obtained and scanned into [employer]. Scheduled for surgery 07/16/2023. Normal [facility] BASIC METABOLIC PANELon 11-0 Anion gap [Moles/Vol] 16 mmol/L Normal 10-20 [facility] Comment on above: Performed By: #### C H8 #### [facility] [address] [place] [address], Calcium [Mass/Vol] 9.8 mg/dL Normal 8.4-10.4 [facility] Comment on above: Performed By: #### C H8 #### [facility] [address] [place] [address], Chloride [Moles/Vol] 106 mmol/L Normal 97-111 [facility] Comment on above: Performed By: #### C H8 #### [facility] [address] [place] [address], CO2 [Moles/Vol] 23 mmol/L Normal 21-30 [facility] Comment on above: Performed By: #### C H8 #### [facility] [address] [place] [address], Creatinine [Mass/Vol] 1.01 mg/dL Normal 0.80-1.30 [facility] Comment on above: Performed By: #### C H8 #### [facility] [address] [place] [address], ESTIMATED GFR (CKD-EPI) 103 mL/min/1.73sqm Normal >=60 [facility] Comment on above: Result Comment: 2021 [...] Inclusion of Race in Diagnosing Kidney Disease. [place] Journal of Kidney Diseases 2021;79(2):268-88.e1. 2. N Engl J Med 1 Vol. 385 Issue 19 Pages 6946-6552 Performed By: #### C H8 #### [facility] [address] [place] [address], Glucose [Mass/Vol] 104 mg/dL Normal 68-110 [facility] Comment on above: Performed By: #### C H8 #### [facility] [address] [place] [address], Potassium [Moles/Vol] 4.7 mmol/L Normal 3.3-5.3 [facility] Comment on above: Performed By: #### C H8 #### [facility] [address] [place] [address], Sodium [Moles/Vol] 140 mmol/L Normal 135-148 [facility] Comment on above: Performed By: #### C H8 #### [facility] [address] [place] [address], Urea nitrogen [Mass/Vol] 22 mg/dL Normal 8-22 [facility] Comment on above: Performed By: #### C H8 #### [facility] [address] [place] [address], PSE Chartingon 06-22-2023 Steward/Stewardess Authentication Interface Message Text Dental Consult The [...] Treatment Dental treatment in the OR Follow-up [facility] Family [facility]istry if needed NOTE: Legal Guardian: Delbert Devine (BROTHER) [phone]. Consent taken by phone. Hiram Rodriguez DDS Normal [facility] Patient Instructionson 06-22 Steward/Stewardess Authentication Interface Message Text RECOMMENDATIONS: Patient was instructed on the following: Nothing by mouth after midnight before surgery except following meds with sip of water on AM of surgery: as per anesthesia Stop aspirin 7 days before surgery Stop NSAID 5 days before surgery Stop Vitamin E 10 days prior to surgery Stop alternative/herbal medication 10 days before surgery Franc Beyer MD [id number] Normal [employer] Progress Noteson 06-22-2023 Steward/Stewardess Authentication Interface Message Text Identification was verified by patient verbalizing his name and date of . 23 gauge used for venipuncture to the R hand. Tolerated with assistance x2. Sent blood to lab. 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 Normal [employer] Steward/Stewardess Authentication Interface Message Text Patient was identified by name and date of . Alicia Hunt Normal [employer] XR CHEST PA+LAT 2 VIEWSon XR [...] dedicated abdominal radiograph/CT. MACRO: None Normal [employer] XR Chest PA and Lateralon EXAMINATION: [...] indicated with dedicated abdominal radiograph/CT. MACRO: None [facility] Study observation (narrative) [facility] XR Chest PA and LateralOrder ed By: Krystal Epstein on 06-22-2023 [employer] Work Phone: Progress Noteson 06-13-2023 Steward/Stewardess Authentication Interface Message Text Parent/guardian(Wendy peres @ [employer]) was contacted for PSE AND OR scheduled -- confirmed information with mom, also informed mom importance of receiving PSE call -- if not received surgery will be canceled ----- Sunday, June 13, 2023 at 11:28:09 AM ----- ----- Provider: Orville Amaya Specialist -- Clinic: [place] ----- Normal [employer] DEPAKENE/ VALPROIC ACIDon DEPAKENE 59.3 ug/ml Normal 50.0-100.0 [facility] Comment on above: Performed By: #### V ALP #### [facility] [address] [place] [address] Dr. Nikky King DEPAKENE/ VALPROIC ACIDon DEPAKENE 43.6 ug/ml Critically low 50.0-100.0 The [facility] Comment on above: Performed By: #### V ALP #### [facility] [address] [place] [address] Dr. Nikky King LITHIUMon 12-06-2022 [place] (Eskalith(R)), Serum 0.8 mmol/L Normal 0.5-1.2 [facility] Comment on above: Result Comment: A co ncentration of 0.5-0.8 mmol/L is advised for long-term use; concentrations of up to 1.2 mmol/L may be necessary during acute treatment. Detection Limit = 0.1 <0.1 indicates None Detected Performed By: #### L ITHIUM #### [facility] [address] [place] [address] Dr. Nikky King DEPAKENE/ VALPROIC ACIDon DEPAKENE 61.7 ug/ml Normal 50.0-100.0 [facility] Comment on above: Performed By: #### V ALP #### [facility] [address] [place] [address] Dr. Nikky King LITHIUMon 11-23-2022 [place] (Eskalith(R)), Serum 0.9 mmol/L Normal 0.5-1.2 [facility] Comment on above: Result Comment: A co ncentration of 0.5-0.8 mmol/L is advised for long-term use; concentrations of up to 1.2 mmol/L may be necessary during acute treatment. Detection Limit = 0.1 <0.1 indicates None Detected Performed By: #### L ITHIUM #### [facility] [address] [place] [address] Dr. Nikky King CALCIUMon 08-22-2022 Calcium [Mass/Vol] 9.6 mg/dL Normal 8.5-10.[address] [facility] Comment on above: Performed By: #### C A CREA #### [facility] [address] [place] [address] Dr. Nikky King CREATININEon 08-22-2022 Creatinine [Mass/Vol] 0.84 mg/dL Normal 0.70-1.30 [facility] Comment on above: Performed By: #### C A CREA #### [facility] [address] [place] [address] Dr. Nikky King EGFR-AF DUTCH >60 Normal >=60 [facility] Comment on above: Performed By: #### C A CREA #### [facility] [address] [place] [address] Dr. Nikky King EGFR-NON AF DUTCH >60 Normal >=60 [facility] Comment on above: Performed By: #### C A, CREA #### [facility] [address] [place] [address] Dr. Nikky King LITHIUMon 07-05-2022 [place] (Eskalith(R)), Serum 0.9 mmol/L Normal 0.5-1.2 [facility] Comment on above: Result Comment: A co ncentration of 0.5-0.8 mmol/L is advised for long-term use; concentrations of up to 1.2 mmol/L may be necessary during acute treatment. Detection Limit = 0.1 <0.1 indicates None Detected Performed By: #### L ITHIUM #### [facility] [address] [place] [address] Dr. Nikky King Vital Signs Date Time Vital Sign Value Performing Clinician Faci lity 12-28-2023 14:30-0400 Diastolic blood pressure 89 mm[Hg] Mari Yi [employer] [facility] 12-28-2023 14:30-0400 Heart rate 69 /min Mari Yi DMD Work Phone: [employer] 12-28-2023 14:30-0400 Respiratory rate 10 /min Mari Yi DMD [facility] Phone[facility] 12-28-2023 14:30-0400 SaO2% (BldA) [Mass fraction] 100 % Mari Yi DMD Work Phone[facility] 12-28-2023 14:30-0400 Systolic blood pressure 135 mm[Hg] Mari Yi DMD [facility] Phone[facility] 12-28-2023 13:52-0400 Body temperature 97.3 [degF] Mari Yi DMD Work Phone: [employer] 12-28-2023 09:15-0400 Body height 167.6 cm Mari Yi DMD Work Phone: [employer] 12-28-2023 09:15-0400 Body mass index (BMI) [Ratio] 31.8 kg/m2 Mari Yi DMD Work Phone: [employer] 12-28-2023 09:15-0400 Body weight 89.36 kg Mari [facility]i DMD [facility] 12-19-2023 11:23-0400 Diastolic blood pressure 90 mm[Hg] Ling Coffman FLEET DIRECTOR-LUMBER CARRIER OPERATOR Work Phone[facility] 12-19-2023 11:23-0400 Systolic blood pressure 132 mm[Hg] Ling Ridleyiv FLEET DIRECTOR-LUMBER CARRIER OPERATOR Work Phone: [facility] 12-19-2023 11:03-0400 Body height 167.6 cm Ling Ridleyiv FLEET DIRECTOR-LUMBER CARRIER OPERATOR Work Phone[facility] 12-19-2023 11:03-0400 Body mass index (BMI) [Ratio] 31.8 kg/m2 Ling Ridleyiv FLEET DIRECTOR-LUMBER CARRIER OPERATOR Work Phone[facility] 12-19-2023 11:03-0400 Body temperature 97.81 [degF] Ling Ridleyiv FLEET DIRECTOR-LUMBER CARRIER OPERATOR [facility] Phone[facility] 12-19-2023 11:03-0400 Body weight 89.36 kg Ling Ridleyiv FLEET DIRECTOR-LUMBER CARRIER OPERATOR Work Phone[facility] 12-19-2023 11:03-0400 Heart rate 59 /min Ling Coffman FLEET DIRECTOR-LUMBER CARRIER OPERATOR Work Phone[facility] 12-19-2023 11:03-0400 Respiratory rate 18 /min Ling Ridleyiv FLEET DIRECTOR-LUMBER CARRIER OPERATOR Work Phone[facility] 12-19-2023 11:03-0400 SaO2% (BldA) [Mass fraction] 97 % Ling Ridleyiv FLEET DIRECTOR-LUMBER CARRIER OPERATOR Work Phone: [facility] 12-03-2023 13:07-0400 Body height 167.6 cm Oscar Ruiz MD Work Phone: [facility] 12-03-2023 13:07-0400 Body weight 92.53 kg Oscar Ruiz MD Work Phone: [facility] 12-03-2023 13:07-0400 Diastolic blood pressure 76 mm[Hg] Oscar Ruiz MD Work Phone: [facility] 12-03-2023 13:07-0400 Heart rate 71 /min Oscar Ruiz MD Work Phone: [facility] 12-03-2023 13:07-0400 Systolic blood pressure 111 mm[Hg] Oscar Ruiz MD Work Phone: [facility] 11-28-2023 09:48-0400 Body height 167.6 cm Victoria Daniel FLEET DIRECTOR.LUMBER CARRIER OPERATOR Work Phone: [facility] 11-28-2023 09:48-0400 Body temperature 97.5 [degF] Victoria Daniel FLEET DIRECTOR.LUMBER CARRIER OPERATOR Work Phone: [facility] 11-28-2023 09:48-0400 Body weight 87.54 kg Victoria Daniel FLEET DIRECTOR.LUMBER CARRIER OPERATOR Work Phone: [facility] 11-28-2023 09:48-0400 Diastolic blood pressure 66 mm[Hg] Victoria Daniel FLEET DIRECTOR.LUMBER CARRIER OPERATOR Work Phone: [facility] 11-28-2023 09:48-0400 Heart rate 83 /min Victoria Daniel FLEET DIRECTOR.LUMBER CARRIER OPERATOR Work Phone: [facility] 11-28-2023 09:48-0400 Systolic blood pressure 134 mm[Hg] Victoria Daniel FLEET DIRECTOR.LUMBER CARRIER OPERATOR Work Phone: [facility] 07-16-2023 08:06-0500 Body mass index (BMI) [Ratio] 33.97 kg/m2 Kim oHrton MD Work Phone: [facility] 07-16-2023 08:06-0500 Body temperature 97.5 [degF] Kim Horton MD Work Phone: [facility] 07-16-2023 08:06-0500 Body weight 90.27 kg Kim Horton MD Work Phone: [facility] 07-16-2023 08:06-0500 Diastolic blood pressure 80 mm[Hg] Kim Horton MD Work Phone: [facility] 07-16-2023 08:06-0500 Heart rate 37 /min Kim Horton MD Work Phone: [facility] 07-16-2023 08:06-0500 Respiratory rate 15 /min Kim Horton MD Work Phone: [facility] 07-16-2023 08:06-0500 SaO2% (BldA) [Mass fraction] 100 % Kim Horton MD Work Phone: [facility] 07-16-2023 08:06-0500 Systolic blood pressure 110 mm[Hg] Kim Horton MD Work Phone: [facility] Encounters Encounter Date Encounter Type Care Provider Facility Start: 05-18-2024 End: 05-18-2024 Letter encounter Gallagher Jewell DDS Work Phone: [facility] Start: 02-13-2024 End: 02-13-2024 Lab Drop off HERMAN CARNE [facility] Start: 02-13-2024 End: 02-13-2024 ambulatory HERMAN CRANE [facility] Start: 01-29-2024 End: 01-29-2024 ambulatory CRIS ARREOLA Not Available Start: 01-11-2024 Telephone encounter Cris Dinh RN Colorectal Surgery Comment on above: Heel Lining Paster - O ther Start: 12-28-2023 End: 12-31-2023 ambulatory MARI YI [facility] Start: 12-28-2023 End: 12-31-2023 Patient encounter procedure Mari Yi DMD Work Phone: [facility] Dentistry Start: 12-28-2023 End: 12-28-2023 Subsequent hospital visit by physician Mari Yi DMD Work Phone: [facility] Start: 12-25-2023 Telephone encounter Shayy Chandler RN [facility] Pre-Admission Testing Comment on above: Pre-surgical Evaluat ion (DD adult dental restorations 12/27 under [facility] at [facility]. PAT completed - consent request sent to main - see future encounter for results. CHRISTINA RN spoke to Melaniepatrick DEEO, [facility] address, and 0900 arrival time/) Pre-surgical Evaluat ion (Anesthesia Attestaion for dental surgery scanned in multimedia journalist) Start: 12-20-2023 End: 12-20-2023 Orders Only Victoria Daniel FLEET DIRECTOR.LUMBER CARRIER OPERATOR Work Phone: General Surgery Comment on above: Sigmoid volvulus (HC C) (Primary Dx) Start: 12-19-2023 ambulatory UNKNOWN PROVIDER Facili ty:[facility] Start: 12-19-2023 End: 12-19-2023 Patient encounter procedure Ling Coffman FLEET DIRECTOR-LUMBER CARRIER OPERATOR Work Phone: [facility] Pre-Admission Testing Comment on above: Pre-op testing (Prim marylin Dx); Body mass index (BMI) 31.0-31.9, adult Start: 12-19-2023 End: 12-19-2023 Patient encounter status Ling Coffman FLEET DIRECTOR-LUMBER CARRIER OPERATOR Work Phone: [facility] Work Phone: Start: 12-11-2023 End: 12-11-2023 ambulatory EPIFANIO HUNTLEY Not Available Start: 12-03-2023 End: 12-04-2023 ambulatory Rafael Giraldo MD Work Phone: Urology Start: 12-03-2023 End: 12-03-2023 Office outpatient visit 5 minutes Oscar Ruiz MD Work Phone: Urology Comment on above: Phimosis (Primary Dx ) Start: 11-28-2023 End: 11-29-2023 ambulatory VICTORIA DANIEL Facility:[facility] Start: 11-28-2023 End: 11-28-2023 Patient encounter procedure Victoria Daniel FLEET DIRECTOR.LUMBER CARRIER OPERATOR Work Phone: General Surgery Comment on above: Postoperative visit (Primary Dx) Start: 11-12-2023 Telephone encounter Cris Dinh RN Colorectal Surgery Comment on above: Heel Lining Paster - O ther Start: 11-07-2023 End: 11-07-2023 ambulatory PHOENIX CARDENAS Facility:[facility] Start: 10-28-2023 Evaluation and management of inpatient PHOENIX CARDENAS Facility:[facility] Start: 07-16-2023 End: 07-16-2023 Emergency department patient visit UNKNOWN PROVIDER Facility[facility] Start: 07-16-2023 End: 07-16-2023 ambulatory UNKNOWN PROVIDER Facility:[facility] Start: 07-16-2023 End: 07-16-2023 Emergency department patient visit Kim Horton MD Work Phone: [facility] Emergency Department Comment on above: bradycardia (Low HR (33)) Start: 07-16-2023 End: 07-16-2023 Subsequent hospital visit by physician Harpreet Mccurdy DDS Work Phone: [facility] Radiology CT Scan Comment on above: Arrived Start: 07-16-2023 End: 07-19-2023 ambulatory UNKNOWN PROVIDER Facility:[facility] Start: 07-04-2023 End: 07-04-2023 ambulatory HERMAN CRANE [facility] Start: 07-04-2023 End: 07-04-2023 Lab Drop off HERMAN CRANE [facility] Start: 06-26-2023 Telephone encounter Shanna marquez RN [facility] Pre Surgical Evaluation Comment on above: Pre-surgical Evaluat ion (Informed Consent for dental surgery & Anesthesia consent obtained) Start: 06-22-2023 End: 06-23-2023 ambulatory UNKNOWN PROVIDER Facility:[facility] Start: 06-22-2023 Encounter for other preprocedural examination UNKNOWN PROVIDER [facility] Start: 06-22-2023 End: 06-22-2023 ambulatory UNKNOWN PROVIDER Facility:[facility] Start: 06-22-2023 End: 06-22-2023 Subsequent hospital visit by physician Alin Op Xray 2 [facility] Radiology Comment on above: Pre-op exam Start: 06-22-2023 End: 06-22-2023 Patient encounter procedure Pse Anesthesia [facility] Pre Surgical Evaluation Comment on above: Pre-op evaluation (P rimary Dx) Start: 06-22-2023 End: 06-22-2023 Preprocedural examination done Pse Anesthesia [facility] Work Phone: Start: 05-25-2023 Admission to [facility] Hiram Rodriguez DDS Work Phone: [facility] Start: 01-17-[address] HERMAN CRANE Fac [...] other specified special examinations DR HERMAN CRANE [facility] Start: 08-22-2022 End: 08-23-[address] [...] 03-29-2022 [facility] Comment on above: Medical Record Revie w Procedures Date Procedure Procedure Detail Performing Clinician Start: 12-19-2023 Basic metabolic pane l calcium total Ling Coffman FLEET DIRECTOR-LUMBER CARRIER OPERATOR Work Phone: Start: 10-28-2023 Antibody screen PHOENIX CARDENAS Comment on above: Order Comment: Speci men Type: BLOOD SPECIMEN Ordering Facility: [facility] Address: [address] [place] [address] Performed By: #### 2 [id number], [id number], [id number] #### [facility] CLIA [id number] [address] [place] [address] [place] Start: 07-16-2023 End: [...] DTaP,Tdap,Td Vaccine (2 - Td or Tdap) [facility] Start: 04-20-2024 COVID-19 Vaccine ( season) COVID-19 Vaccine ( season) [facility] Start: 04-20-2024 Influenza vaccination Influenza Vacc ine (#1) [facility] Start: 03-11-2024 End: 03-11-2024 Patient encounter procedure 03/11/2024 9:00 AM EDT Office Visit [facility] [address] [place] [address] [place] [address] Iain Lazcano MD [address] [place] [address] Cataracts Ophthalmology Comment on above: Cataracts Start: 12-28-2023 End: 12-28-2023 Admission to same day surgery center 12/28/2023 10:01 AM EDT - 12/28/2023 12:21 PM EDT Surgery [facility] Ambulatory Surgery [address] [place] [address] Mari Yi, DMD [address] [place] [address] [address] [facility] Ambulatory Surgery Comment on above: DENTAL RESTORATIONS Start: 12-28-2023 End: 12-28-2023 DENTAL RESTORATIONS [facility] Start: 12-28-2023 Subsequent hospital visit by physician 12/28/2023 10:01 AM EDT Hospital Encounter [facility] Ambulatory Surgery [address] [place] [address] Mari Yi, DMD [address] [place] [address] [facility] Ambulatory Surgery Start: 12-28-2023 End: 12-28-2023 Patient encounter procedure 12/28/2023 9:00 AM EDT Procedure Visit [facility]istry [address] [place] [address] Mari Yi, DMD [address] [place] [address] [facility] Start: 08-20-2023 Behavioral Health Screening Behavioral Health Screening [facility] Start: 08-20-2023 Depression Assessment Depression Ass essment [facility] Start: 07-16-2023 End: 07-16-2023 DENTAL RESTORATIONS DENTAL RESTORATIONS Routine scheduled Caries 07/16/2023 1:45 PM EST [facility] Start: 07-16-2023 End: 11-27-2023 Admission to same day surgery center 07/16/2023 9:27 AM EST - 07/16/2023 11:24 AM EST Surgery [facility] Ambulatory Surgery [address] [place] [address] Harpreet Mccurdy, DDS [address] [place] [address] [facility] Ambulatory Surgery Comment on above: DENTAL RESTORATIONS Start: 07-16-2023 End: 07-16-2023 DENTAL RESTORATIONS DENTAL RESTORATIONS Routine scheduled Caries 07/16/2023 9:27 AM EST [facility] Start: 07-16-2023 Subsequent hospital visit by physician [facility]ulatory Surgery Start: 06-22-2023 End: 06-22-2023 Patient encounter procedure 06/22/2023 2:30 PM EDT Office Visit [facility] [address] [place] [address] Franc Beyer MD [address] [place] [address] [facility] Start: 04-20-2023 COVID-19 Vaccine ( season) COVID-19 Vaccine ( season) [facility] Start: 04-20-2023 Influenza vaccination Influenza Vacc ine (#1) [facility] Start: 05-20-2022 Influenza vaccination Influenza Vacc ine (#1) [facility] Start: 04-20-2022 Influenza vaccination INFLUENZA (#1) [facility] Start: 08-20-2021 DEPRESSION ASSESSMENT DEPRESSION ASS ESSMENT [facility] Start: 08-10-2021 COVID-19 VACCINE (4 - Booster for Pfizer series) COVID-19 VACCINE (4 - Booster for Pfizer series) [facility] Start: 2019 HPV Vaccine (optiona l start 27-45 years) HPV Vaccine (optional start 27-45 years) [facility] Start: 02-17-2014 Annual wellness visit Annual W ellness Visit ([id number]) [facility] Start: 2011 Hepatitis A (HAV) Vaccine (optional start 19+ years) Hepatitis A (HAV) Vaccine (optional start 19+ years) [facility] Start: 2011 Hepatitis B vaccination Hepatitis B (HBV) Vaccine (1 of 3 - 19+ 3-dose series) [facility] Start: 2011 Hepatitis B Vaccine (1 of 3 - 19+ 3-dose series) Hepatitis B Vaccine (1 of 3 - 19+ 3-dose series) [facility] Start: 2011 Urine microalbumin profile DTAP,TDAP,TD (1 - Tdap) [facility] Start: 2010 Annual PCP Team Chronic Disease Visit Annual PCP Team Chronic Disease Visit [facility] Start: 2010 Hepatitis C screening M [facility] Start: 2010 HEPATITIS C SCREENING HEPATITIS C SC REENING [facility] Start: 2010 HIV SCREENING HIV SCREENING [facility] Start: 2010 HIV screening HIV Screening [facility] Start: 2007 HIV screening HIV Test [facility] Start: 2004 Adult depression screening assessment DEPRESSION SCREENING [facility] Start: 1992 HEPATITIS B (1 of 3 - 3-dose series) HEPATITIS B (1 of 3 - 3-dose series) [facility] Start: 1992 Hepatitis B vaccination Hepatitis B (HBV) Vaccine (1 of 3 - 3-dose series) [facility] Start: 1992 Thyroid stimulating hormone measurement TSH [facility] DENTAL RESTORATIONS DENTAL OMAR RATIONS Routine scheduled Caries [facility] URINALYSIS, REFLEX MICROSCOPIC URINALYSIS, REFLEX MICROSCOPIC Lab Routine Screening for genitourinary condition Ordered: 12/03/2023 [facility] Work Phone: Comment on above: Ordered: 12/03/[address] [facility] Immunizations Immunization Date Immunization Notes Care Provider Fa cility 06-15-2021 influenza, injectabl e, quadrivalent, preservative free To Assigned [facility] 06-15-2021 influenza virus vacc ine, unspecified formulation To Assigned [facility] 05-26-2020 influenza, injectabl e, quadrivalent, preservative free To Assigned [facility] 07-10-2019 tetanus toxoid, redu alex diphtheria toxoid, and acellular pertussis vaccine, adsorbed To Assigned [facility] 06-13-2019 influenza, injectabl e, quadrivalent, preservative free To Assigned [facility] 05-29-2018 influenza, injectabl e, quadrivalent, preservative free To Assigned [facility] 06-13-2017 influenza, injectabl e, quadrivalent, contains preservative To Assigned [facility] 06-10-2015 influenza, injectabl e, quadrivalent, preservative free To Assigned [facility] 06-12-2012 influenza, seasonal, injectable To A ssigned [facility] 05-03-2011 influenza, seasonal, injectable, preservative free To Assigned [facility] 06-15-2010 influenza, seasonal, injectable To A ssied [facility] 07-07-2009 novel influenza-H1N1 -09, preservative-free, injectable To Assigned [facility] 05-11-2009 influenza, seasonal, injectable To A ssigned [facility] 06-15-2008 influenza, seasonal, injectable To A ssigned [facility] 06-11-2008 influenza virus vacc ine, whole virus To Assigned [facility] Payers Date Payer Category Payer Unknown [id number] 2017 Medicaid [id number] 2013 Medicare [id number] 1992 Unknown [id number] 2.16 [id number] 1992 Unknown [id number] 2.16 840.1.546579.3.579.2.732 1992 Unknown [id number] 2.16. 840.1.506108.3.579.2.732 1992 Unknown [id number] 2.16. 840.1.590392.3.579.2.732 1992 Unknown [id number] 2.16 840.1.454034.3.579.2.732 1992 Unknown [id number] 2.16. 840.1.965989.3.579.2.732 1992 Unknown [id number] 2.16. 840.1.668896.3.579.2.732 1992 Unknown [id number] 2.16. 840.1.711700.3.579.2.732 1992 Unknown [id number] 2.16. 840.1.657328.3.579.2.732 1992 Unknown [id number] 2.16. 840.1.671445.3.579.2.732 1992 Unknown [id number] 2.16. 840.1.028177.3.579.2.732 1992 Unknown [id number] 2.16.84 0.1.082394.3.579.2.1259 1992 Unknown [id number] 2.16.84 0.1.672776.3.579.2.1259 1992 Unknown [id number] 2.16.84 0.1.661378.3.579.2.1259 1992 Unknown [id number] 2.16.8 40.1.949388.3.579.2.727 1992 Unknown [id number] 2.16.8 40.1.560843.3.579.2.727 1959 Medicaid [id number] 1957 Medicare [id number] Unknown [id number] 2.16.84 0.1.310268.3.579.2.593 Unknown [id number] 2.16.84 0.1.889479.3.579.2.593 Unknown [id number] 2.16.84 0.1.020528.3.579.2.593 Unknown [id number] 2.16.84 0.1.990883.3.579.2.593 Unknown [id number] 2.16.84 [id number] Unknown [id number] 2.16.84 [id number] Unknown [id number] [id number] [id number] Unknown [id number] Social History Date Type Detail Facility Start: 07-08-2019 End: 06-22-2023 Tobacco smoking status MAIS Never smoked tobacco [facility] Start: 07-08-2019 End: 06-22-2023 Tobacco use and exposure Smokeless tobacco non-user [facility] Start: 02-04-2021 End: 12-31-2023 Alcohol intake Lifetime non-drinker (finding) [facility] Start: 07-13-2020 History SDOH Alcohol Frequency 1 [facility] Start: 1990 Sex Assigned At [facility] on file [facility] Start: 05-04-2022 End: 12-19-2023 Tobacco smoking status MAIS Tobacco smoking consumption unknown [facility] Start: 04-24-2022 End: 05-04-2022 Exposure to SARS-CoV-2 (event) Not sure [facility] Start: 06-22-2023 End: 10-29-2023 Gender identity Not on file [facility] Tobacco smoking status No Smokin g Status Entered [facility] Start: 06-22-2023 End: 10-29-2023 History of Social function [facility] Work Phone: Has the [employer], [employer], or [employer] threatened to shut off services in your home in past 12Mo Patient unable to answer [facility] Work Phone: How often to you hav e a drink containing alcohol? Never [facility] Work Phone: Clinical Notes 03-29-2022 to 02-13-2024 Telephone Encounter - Cris Dinh RN - 01/11/2024 1:27 PM EDTTelephone Encounter - Cris Dinh RN - 01/11/2024 1:27 PM EDTDischarge InstructionsAttachmentsPatient Instructions Note Date & Type Note Facility 02-13-2024 Evaluation + Plan note Diagnostic Tests PendingKeppra Lvl 02/13/24Lamotrigine Level 02/13/24 [facility] 01-11-2024 Telephone encounter Note Jessica from [facility] [phone] is caller. She states was originally told [...] needs at present time. Cris Dinh, MIRIAM [facility] 01-11-2024 Miscellaneous Notes Jessica from [facility] [phone] is caller. She states was originally told [...] Cris Dinh, RN documented in this encounter [facility] 12-28-2023 Hospital Discharge instructions Benjamín Guo - 12/28/2023 2:17 PM EDT PERIOPERATIVE DISCHARGE/HOME-GOING INSTRUCTIONS ANESTHESIA - GENERAL (ADULT) If a problem arises, you may contact your physician by calling [phone] and asking for the resident school transportation director for Dental service. Special Care Needs: Activity: [...] sent through Care Everywhere.Tooth Extraction Discharge Instructions (Cymraes)documented in this encounter [facility] 12-28-2023 Note Surgical Attestation : I have [...] Mari Yi DMD 12/28/2023 10:09 AM [facility] 12-28-2023 History and physical note Surgical [...] possible Mari Yi DMD 12/28/2023 10:09 AM [facility] Work Phone: 12-28-2023 History and physical note [...] 12/28/2023 10:09 AM documented in this encounter [facility] 12-28-2023 Miscellaneous Notes Brief Operative Note PHE OR 3 Johnny Devine 33 year old male Surgical Contact Serial Number: [id number] Preoperative Diagnosis: Pre-op Diagnosis * Caries [K02.9] Moderate intellectual disability [F79] Postoperative Diagnosis: Moderate intellectual disability [F79] Procedures: Comprehensive exam [35308] Full mouth X-ray [ 21567] Extractions [99208] Restorations [18840] Prophy 66048] Fluoride treatment [91131] Surgeon(s): Surgeon(s): Mari Yi DMD Staff: Hanger Off Nurse: Henrietta Johnson Anesthesia: General Anesthesia Staff: [...] disability[F79] @ENCORD@ Surgeon: Dr. Mari Yi DMD Independent Sales Representative Surgeon: Reema Whiting DDS Anesthesia: General- Nasal [...] 4 mg/0.1 mL nasal liquid Use 1 [place] in one nostril (alternate sides) as needed [...] were discussed with the patient and/or legal entry level marketing representative. The risks, benefits and alternatives were reviewed. Questions regarding blood transfusions were answered. The patient /or the patient s legal entry level marketing representative agree with the plan for transfusion of blood and/or blood components. documented in this encounter [facility] 12-28-2023 Surgery Postoperative evaluation and management note Brief Operative Note PHE OR 3 Johnny Devine 33 year old male Surgical Contact Serial Number: [id number] Preoperative Diagnosis: Pre-op Diagnosis * Caries [K02.9] Moderate intellectual disability [F79] Postoperative Diagnosis: Moderate intellectual disability [F79] Procedures: Comprehensive exam [14865] Full mouth X-ray [ 53978] Extractions [98718] Restorations [64798] Prophy 83084] Fluoride treatment [04465] Surgeon(s): Surgeon(s): Mari Yi DMD Staff: Hanger Off Nurse: Henrietta Johnson Anesthesia: General Anesthesia Staff: [...] Reema Whiting DDS 12/28/2023 1;48 pm T [facility] 12-28-2023 Surgery Surgical operation note Surgical Case Number Data Unavailable Operating Room Data Unavailable Preoperative Diagnosis(es): Pre-op Diagnosis * Caries [K02.9] Moderate intellectual disability [F79] Postoperative Diagnosis(es): Moderate intellectual disability[F79] @ENCORD@ Surgeon: Dr. Mari Yi DMD Independent Sales Representative Surgeon: Reema Whiting DDS Anesthesia: General- Nasal [...] 4 mg/0.1 mL nasal liquid Use 1 [place] in one nostril (alternate sides) as needed [...] procedure. Reema Whiting DDS 12/28/2023 1:53 pm [facility] 12-28-2023 Progress note Formatting of t his note is different from the original. Blood Attestation: ATTESTATION OF INFORMED CONSENT FOR BLOOD: The transfusion of blood and/or blood components were discussed with the patient and/or legal entry level marketing representative. The risks, benefits and alternatives were reviewed. Questions regarding blood transfusions were answered. The patient /or the patient s legal entry level marketing representative agree with the plan for transfusion of blood and/or blood components. [facility] 12-28-2023 History of Present illness Narrative Patient takes his seizure medication with pudding, facility held them today for dental surgery. Caregiver brought capsules with them to pre-op. Per Dr. Saldivar, divalproex 125 mg x 4 capsules (500 mg) were opened and sprinkles given to patient with 50 mL of water in pre-op. 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 MB cusp tip was visualized upon extraction of #17, but well encased in bone and would not be exposed to the oral cavity following healing of the extraction site. Preoperative Diagnosis(es): Pre-op Diagnosis * Caries [K02.9] Moderate intellectual disability [F79] Postoperative Diagnosis(es): Moderate intellectual disability[F79] Surgeon: Dr. Mari Yi DMD Independent Sales Representative Surgeon: Reema Whiting DDS Anesthesia: General- Nasal [...] of surgery: Stable documented in this encounter [facility] 12-21-2023 Evaluation note Addendum 12/21/2023- Caregiver @ [facility] facility called to relay that patient unable to take medications without pudding. Per Dr. Newell: Instruct them to take the meds at night. Please then coordinate with either the anesthesia team or surgical team to order IV depacon so he can get his depakote. I would have the facility bring his oral depakote for after surgery If they can't get the depacon at [facility] RN updated nursing staff @ [facility]. [facility] 12-21-2023 Miscellaneous Notes Addendum 12/21/2023- Caregiver @ [facility] facility called to relay that patient unable to take medications without pudding. Per Dr. Newell: Instruct them to take the meds at night. Please then coordinate with either the anesthesia team or surgical team to order IV depacon so he can get his depakote. I would have the facility bring his oral depakote for after surgery If they can't get the depacon at [facility] RN updated nursing staff @ [facility]. Patient was identified by name and date of . Jaswinder Arnulfo Patient at risk for falls:No Falls Risk protocol implemented: N/A documented in this encounter [facility] 12-19-2023 Note Pre-Admission Testin g Consultation Johnny Devine, [id number] 33 year old Male 12/19/2023 Consult placed to [facility] by Mari Yi, due to significant PMH of Hypothyroidism , Bipolar, Autistic disorder ,Epilepsy [facility] Triage Risk Score Total Score: 3 1 [...] intervention warranted . Patient with Lamaar from [facility] facility during this appointment Patient is here for pre-admission optimization and education prior to surgery. RECENT ILLNESS: Serious illness or hospitalization within the last six months. Yes 10/28/2023 HOSPITAL COURSE: Johnny Devine is a 33 year old male with developmental delay and no PSH who presents as a transfer to [facility] from [facility] ED for further management of small bowel obstruction. Given patient's baseline cognitive status, NGT difficult to maintain. He was admitted to the [facility] under care of general surgery and was taken to the OR the following morning for diagnostic laparoscopy. Intra-operative findings demonstrated no adhesins, no apparent hernias, dilated small/large bowel, redundant sigmoid c/f volvulus, easily reduced. After recovering in the PACU, he was taken to the [facility] with NGT in place. Patient arrived to [facility] with 8 Fr pediatric haskins catheter [...] in home regimen. Stable for discharge to halfway. Neurology Recommendations on Discharge: - Discharge on [...] Surgeon: Lyndsay Zuluaga DDS; Location: PERIOPERATIVE SERVICES; [facility] (more content not included)... [facility] 12-19-2023 Instructions Ling Coffman APRN-LUMBER CARRIER OPERATOR - 12/19/2023 11:26 AM EDT On the [...] for pain. Please hold all Vitamin E, [place] 3, fish oil and herbal supplements for 1 week prior to surgery. Please use this LIST to prepare for your surgery/procedure: ? Assume that any lab or testing done during your Pre-admission testing appointment is within normal limits unless otherwise contacted. ? Expect a call from [employer] [employer] one business day prior to surgery for [...] your Preparing for Your Surgery/Procedure booklet or [email or web address] if you have questions. Contact the Pre-Admission Testing department at [phone] or your surgeon's office with any questions [...] stay with you after surgery. Please call [facility] Social Work if you need transportation assistance or have concerns about going home [phone]. ? SLEEP APNEA PATIENTS: Bring your sleep apnea machine and mask. ? PLEASE BE ON TIME. A late arrival may result in the cancellation/ delay of your surgery. Thank you for choosing [facility]; it is our pleasure to care for you documented in this encounter [facility] 12-19-2023 Instructions Shanna Sauceda RN - 12/19/2023 11:26 AM EDT [facility] staff: Since patient is unable to take [...] for pain. Please hold all Vitamin E, [place] 3, fish oil and herbal supplements for 1 week prior to surgery. Please use this LIST to prepare for your surgery/procedure: ? Assume that any lab or testing done during your Pre-admission testing appointment is within normal limits unless otherwise contacted. ? [facility] one business day prior to surgery [...] your Preparing for Your Surgery/Procedure booklet or [email or web address] if you have questions. Contact the Pre-Admission Testing department at [phone] or your surgeon's office with any questions [...] stay with you after surgery. Please call [facility] if you need transportation assistance or have concerns about going home [phone]. ? SLEEP APNEA PATIENTS: Bring your sleep apnea machine and mask. ? PLEASE BE ON TIME. A late arrival may result in the cancellation/ delay of your surgery. Thank you for choosing [facility] [employer]; it is our pleasure to care for you documented in this encounter [facility] 12-19-2023 Evaluation note Patient was identified by name and date of . Jaswinder Arredondo Patient at risk for falls:No Falls Risk protocol implemented: N/A [facility] 12-19-2023 Miscellaneous Notes Patient was identified by name and date of . Jaswinder Arredondo Patient at risk for falls:No Falls Risk protocol implemented: N/A documented in this encounter [facility] 12-19-2023 History of Present illness Narrative Images from the original note were not included. Pre-Admission Testing Consultation Johnny Devine, [id number] 33 year old Male 12/19/2023 Consult placed to [facility] by Mari Yi, due to significant PMH of Hypothyroidism , Bipolar, Autistic disorder ,Epilepsy [facility] Triage Risk Score Total Score: 3 1 [...] intervention warranted . Patient with Lamaar from [facility] facility during this appointment Patient is here for pre-admission optimization and education prior to surgery. RECENT ILLNESS: Serious illness or hospitalization within the last six months. Yes 10/28/2023 HOSPITAL COURSE: Johnny Devine is a 33 year old male with developmental delay and no PSH who presents as a transfer to [facility] from [facility] ED for further management of small bowel obstruction. Given patient's baseline cognitive status, NGT difficult to maintain. He was admitted to the [facility] under care of general surgery and was taken to the OR the following morning for diagnostic laparoscopy. Intra-operative findings demonstrated no adhesins, no apparent hernias, dilated small/large bowel, redundant sigmoid c/f volvulus, easily reduced. After recovering in the PACU, he was taken to the [facility] with NGT in place. Patient arrived to [facility] with 8 Fr pediatric haskins catheter [...] in home regimen. Stable for discharge to halfway. Neurology Recommendations on Discharge: - Discharge on [...] MG CSDR capsule LABORATORY DATA: CBC @ [facility] 11/07/2023 CBC Order: [id number] Component Ref Range & Units 1 mo [...] 0418 141 110 21 91 Comment: The [place] [employer] (ADA) provides guidance for cutoff [...] Standards of Medical Care in Diabetes 2016, [place] [employer]. Diabetes Care. 2016.39(Suppl 1). 8 0.70 8.2 11/06/23 0943 146 112 18 83 Comment: The [place] [employer] (ADA) provides guidance for cutoff [...] Standards of Medical Care in Diabetes 2016, [place] [employer]. Diabetes Care. 2016.39(Suppl 1). 6 0.69 8.9 11/05/23 0418 142 112 23 96 Comment: The [place] [employer] (ADA) provides guidance for cutoff [...] Standards of Medical Care in Diabetes 2016, [place] [employer]. Diabetes Care. 2016.39(Suppl 1). 5 0.64 7.6 11/04/23 0826 145 112 24 79 Comment: The [place] [employer] (ADA) provides guidance for cutoff [...] Standards of Medical Care in Diabetes 2016, [place] [employer]. Diabetes Care. 2016.39(Suppl 1). 4 0.70 7.7 TESTS REVIEWED: I personally reviewed and interpreting and findings were: CXRay: Chest x-ray was last done on 10/31/2023 EK10/31/2023 @ [facility] NORMAL SINUS RHYTHM ANTEROLATERAL T WAVE ABNORMALITY [...] 1:39 PM 12/19/2023 documented in this encounter [facility] 12-19-2023 History of Present illness Narrative Images from the original note were not included. Pre-Admission Testing Consultation Johnny Devine, [id number] 33 year old Male 12/19/2023 Consult placed to [facility] by Mari Yi, due to significant PMH of Hypothyroidism , Bipolar, Autistic disorder ,Epilepsy [facility] Triage Risk Score Total Score: 3 1 [...] intervention warranted . Patient with Lamaar from [facility] facility during this appointment Patient is here for pre-admission optimization and education prior to surgery. RECENT ILLNESS: Serious illness or hospitalization within the last six months. Yes 10/28/2023 HOSPITAL COURSE: Johnny Devine is a 33 year old male with developmental delay and no PSH who presents as a transfer to [facility] from [facility] ED for further management of small bowel obstruction. Given patient's baseline cognitive status, NGT difficult to maintain. He was admitted to the [facility] under care of general surgery and was taken to the OR the following morning for diagnostic laparoscopy. Intra-operative findings demonstrated no adhesins, no apparent hernias, dilated small/large bowel, redundant sigmoid c/f volvulus, easily reduced. After recovering in the PACU, he was taken to the [facility] with NGT in place. Patient arrived to [facility] with 8 Fr pediatric haskins catheter [...] in home regimen. Stable for discharge to halfway. Neurology Recommendations on Discharge: - Discharge on [...] DATA: CBC @ [facility] 11/07/2023 CBC Order: [id number] Component Ref Range & Units 1 mo [...] 0418 141 110 21 91 Comment: The [place] [employer] (ADA) provides guidance for cutoff [...] Standards of Medical Care in Diabetes 2016, [place] [employer]. Diabetes Care. 2016.39(Suppl 1). 8 0.70 8.2 11/06/23 0943 146 112 18 83 Comment: The [place] [employer] (ADA) provides guidance for cutoff [...] Standards of Medical Care in Diabetes 2016, [place] [employer]. Diabetes Care. 2016.39(Suppl 1). 6 0.69 8.9 11/05/23 0418 142 112 23 96 Comment: The [place] [employer] (ADA) provides guidance for cutoff [...] Standards of Medical Care in Diabetes 2016, [place] [employer]. Diabetes Care. 2016.39(Suppl 1). 5 0.64 7.6 11/04/23 0826 145 112 24 79 Comment: The [place] [employer] (ADA) provides guidance for cutoff [...] Standards of Medical Care in Diabetes 2016, [place] [employer]. Diabetes Care. 2016.39(Suppl 1). 4 0.70 7.7 TESTS REVIEWED: I personally reviewed and interpreting and findings were: CXRay: Chest x-ray was last done on 10/31/2023 EK10/31/2023 @ [facility] NORMAL SINUS RHYTHM ANTEROLATERAL T WAVE ABNORMALITY [...] 1:39 PM 12/19/2023 documented in this encounter [facility] 12-03-2023 Note HNO ID: [id number] Author: OSCAR RUIZ MD Service: ? Author [...] from ongoing urologic care. Oscar Ruiz MD [facility] 12-03-2023 Note Patient Outreach (UR OLMN) NILSONJOHNNY TERRY ([id number]) 1990 M Date Time Provider Department 12/03/23 RAFAEL GIRALDO During your visit today, we recorded the following information about you: Allergies As of Date: 12/03/2023 Noted Allergy Reaction BIAXIN (CLARITHROMYCIN) 05/04/2022 14 - Other: See Comments Comments: caregiver does not know Date Reviewed: 12/03/2023 Reviewed by: Sukhdeep Barton OCCA - Fully Assessed Visit Diagnosis:Screening for genitourinary condition [Z13.89] Order(s):URINALYSIS, REFLEX MICROSCOPIC [ZBR4004] Order #: [id number] Prescriptions as of 12/06/2023 - cloNIDine HCl [...] 12/03/2023 Noted Resolved SBO (small bowel obstruction) ([facility]) [K56.609] 10/28/2023 10/31/2023 Bipolar disorder (HCC) [F31.9] 09/16/2018 Hypothyroidism [E03.9] 09/16/2018 Obsessive-compulsive disorder [F42.9] 09/16/2018 Moderate intellectual disability [F71] 09/16/2018 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 Author Type: Nurse Practitioner Type: Progress Notes Filed: 11/28/2023 10:19 Note Text: [facility] Clinic Date: November 28, 2023 Johnny Devine 33 year old male CHIEF COMPLAINT: Patient presents for follow up from surgery. HPI: Here for follow up after diagnostic laparotomy on 10/29/[address] Robin. Patient also underwent a dorsal slit procedure with urology on 10/30/2023 for paraphimosis. Patient with a leg assembler today to discuss his postoperative course since [...] for further surgery discussion Victoria Sanchez, MSN, FLEET DIRECTOR-LUMBER CARRIER OPERATOR November 28, 2023 [facility] 11-28-2023 History of Present illness Narrative [facility] Clinic Date: November 28, 2023 Johnny Devine 33 year old male CHIEF COMPLAINT: Patient presents for follow up from surgery. HPI: Here for follow up after diagnostic laparotomy on 10/29/[address] Robin. Patient also underwent a dorsal slit procedure with urology on 10/30/2023 for paraphimosis. Patient with a leg assembler today to discuss his postoperative course since [...] for further surgery discussion Victoria Sanchez, MSN, FLEET DIRECTOR-LUMBER CARRIER OPERATOR November 28, 2023 documented in this encounter [facility] 11-28-2023 Nurse Note What is the reason for your visit today? Post op Who is your referring physician? Dr. Sacnhez Are you having poor oral intake? NO Have you had unintentional weight loss of 15 lbs/7 Kg in the last 3-6 months? NO Bowels: regular Wound: clean & dry Temperature: No Drains: No documented in this encounter [facility] 11-12-2023 Miscellaneous Notes Called care facility and [...] Cris Dinh RN documented in this encounter [facility] 11-07-2023 Note HNO ID: [id number] Author: HERMAN SALOMON RN Service: Care Management Author Type: Registered Nurse Type: Care Mgt Progress Note Filed: 11/07/2023 14:56 Note Text: CARE MANAGEMENT DISCHARGE NOTE SERVICE DATE: November 07, 2023 SERVICE TIME: 2:56 PM Admission Date: 10/28/2023 LOS: 10 days Discharge Arrangement Discharge Arrangement: [facility] Services Arranged Medical Services: Other: See Comment (no services indicated) Caregiver Assessment Caregiver is ready, willing and able to meet the patient's needs as recommended by the inter-professional team: Yes Name of Caregiver: [facility] Transportation Arrangements Transportation Arrangements: Car Destination: [facility] Additional Information: Patient d/c ready to [facility] with no skilled needs identified. Patient and bedside RN aware of plan. snf to transport patient home via private auto. SIGNATURE: Herman Salomon RN PATIENT NAME: Johnny Devine DATE: November 07, 2023 TIME: 2:55 PM CONTACT #: [phone] [facility] 11-07-2023 Note HNO ID: [id number] Author: GIA MULLER MD Service: General Surgery [...] * DORSAL SLIT FORESKIN EXCEPT - General [facility] 11-07-2023 Note HNO ID: [id number] Author: MAYANK READ RN Service: Nursing Author Type: Registered Nurse Type: Nursing Progress Note Filed: 11/07/2023 09:25 Note Text: Paged primary team of low BP. [facility] 11-06-2023 Note HNO ID: [id number] Author: ALEXANDRA CHAIREZ MD Service: General Surgery [...] Chairez MD General Surgery Resident Екатерина(Jacob No): [id number] Grundfest(Boy Alcaraz Petro): [id number] After 6PM + Weekends: [phone] INTERVAL EVENTS / PERTINENT REVIEW OF SYSTEMS: [...] * DORSAL SLIT FORESKIN EXCEPT - General [facility] 11-06-2023 Note HNO ID: [id number] Author: BERNARDA SUE MD Service: Neurology General [...] DATE: November 06, 2023 TIME: 12:26 AM [facility] 11-05-2023 Note HNO ID: [id number] Author: LEEANN TELLES MD Service: General Surgery [...] as appropriate, non-distended Leeann Telles MD PGY1 [facility] 11-05-2023 Note HNO ID: [id number] Author: JUAQUIN KRISHNAMURTHY, MIRIAM Service: Nursing Author [...] to bedside, Valium ordered at this time. [facility] 11-05-2023 Note HNO ID: [id number] Author: HERMAN SALOMON RN Service: Care Management Author Type: Registered Nurse Type: Care Mgt Progress Note Filed: 11/05/2023 11:21 Note Text: CARE MANAGEMENT PROGRESS NOTE SERVICE DATE: 11/05/2023 SERVICE TIME: 11:20 AM LOS: 8 days [place] of Choice Explained: [place] of Choice Given: No Reason Not Given: No placements necessary Anticipated # of Days Until Discharge: 4 Needs Prior to Discharge: Needs Prior to Discharge: To Be Determined Post-Acute Discharge Plan: Patient from [facility]. Plan is to return at discharge. supervisor lead burning is Magi [phone]. Per Magi, she will provide transport at discharge. Magi is requesting an abdominal binder at discharge due to patient's history of self-injurious behavior. 33 year old male POD #7 diagnostic laparoscopy. Patient is non-verbal, developmental delay and lives in halfway. No skilled needs anticipated. SIGNATURE: Herman Salomon RN PATIENT NAME: Johnny Devine DATE: November 05, 2023 TIME: 11:19 AM PAGER/CONTACT #: [phone] [facility] 11-05-2023 Note HNO ID: [id number] Author: CONNIE CAICEDO MD Service: Neurology General Author Type: Resident Type: Progress Notes Filed: 11/05/2023 17:50 Note Text: NEUROLOGY CONSULT PROGRESS NOTE SERVICE DATE: 11/05/2023 SERVICE TIME: 10:30 am Current Attending Provider: Samuel oRbin* Subjective Interval History: Today, Johnny is not [...] Dr. Almanzar. Connie Caicedo MD 5:49 PM [facility] 11-05-2023 Note HNO ID: [id number] Author: ALEXANDRA CHAIREZ MD Service: General Surgery [...] Chairez MD General Surgery Resident Екатерина(Jacob No): [phone] Grundfest(Kieran, Benabilaa, Misti): [phone] After 6PM + Weekends: [phone] INTERVAL EVENTS / PERTINENT REVIEW OF SYSTEMS: [...] * DORSAL SLIT FORESKIN EXCEPT - General [facility] 11-04-2023 Note HNO ID: [id number] Author: ALEXANDRA CHAIREZ MD Service: General Surgery [...] Neuro: continue lorazepam TID per neurology(clarified with [facility] and patient has been getting scheduled lorazepam [...] Dispo: RNF, pending diet and dispo planning Alexandra Chairez MD General Surgery Resident Екатерина(Jacob No): [phone] Grundfest(Boy Alcaraz Petro): [phone] After 6PM + Weekends: [phone] INTERVAL EVENTS / PERTINENT REVIEW OF SYSTEMS: [...] * DORSAL SLIT FORESKIN EXCEPT - General [facility] 11-03-2023 Note HNO ID: [id number] Author: ZAIRA ROBERT MD Service: General Surgery [...] (Res) November 03, 2023, 10:29 AM P: [phone] INTERVAL EVENTS / PERTINENT REVIEW OF SYSTEMS: [...] * DORSAL SLIT FORESKIN EXCEPT - General [facility] 11-03-2023 Note HNO ID: [id number] Author: LYLE TRINIDAD RN Service: ? Author Type: Registered Nurse Type: Progress Notes Filed: 11/03/2023 22:32 Note Text: This investment underwriter was called by another nurse that pt had a witnessed 20 seconds of seizure episode. AMET called and team notified and orders given. [facility] 11-02-2023 Note HNO ID: [id number] Author: LEEANN TELLES MD Service: General Surgery [...] as appropriate, non-distended Leeann Telles MD PGY1 [facility] 11-02-2023 Note HNO ID: [id number] Author: HERMAN SALOMON RN Service: Care Management Author Type: Registered Nurse Type: Care Mgt Progress Note Filed: 11/02/2023 11:43 Note Text: CARE MANAGEMENT WEEKEND PLANNING NOTE DISCHARGE OR POSSIBLE DISCHARGE Date/Time: TBD Disposition: Alf Transport: Car /Magi Other Concerns: Patient from [facility]. Plan is to return at discharge. supervisor lead burning is Magi [phone]. Per Magi, she will provide transport at discharge. She will need to be contacted if patient ready to discharge over the weekend. Magi is requesting an abdominal binder at discharge due to patient's history of self-injurious behavior. 33 year old male POD #4 diagnostic laparoscopy. Patient is non-verbal, developmental delay and lives in halfway. Weekend Beauty Specialist Pager #: Please see Treatment Team for Care Management Weekend/Holiday coverage. SIGNATURE: Herman Salomon RN PATIENT NAME: Johnny Devine DATE: November 02, 2023 TIME: 11:42 AM PAGER/CONTACT #: [phone] [facility] 11-02-2023 Note HNO ID: [id number] Author: FRANCK MAGDALENO MD Service: General Surgery [...] appreciate Recs (below); [facility]u [facility] - Recommend applying vaseline [...] dispo pending diet and dispo planning Franck Andrews MD Acute Care Surgery Resident PAGER [phone] INTERVAL EVENTS / PERTINENT REVIEW OF SYSTEMS: [...] * DORSAL SLIT FORESKIN EXCEPT - General [facility] 11-01-2023 Note HNO ID: [id number] Author: ANA LUISA FARR MD Service: General [...] Farr MD Acute Care Surgery Resident PAGER [phone] INTERVAL EVENTS / PERTINENT REVIEW OF SYSTEMS: [...] * DORSAL SLIT FORESKIN EXCEPT - General [facility] 10-31-2023 Note HNO ID: [id number] Author: ANA LUISA FARR MD Service: General [...] Farr MD Acute Care Surgery Resident PAGER [phone] INTERVAL EVENTS / PERTINENT REVIEW OF SYSTEMS: [...] Drain Duration Indwelling Urinary Catheter 10/30/23 0811 [facility] [place]ins 10 Fr 1 day SURGERY/PROCEDURE: Procedure(s) and Anesthesia Type: * DORSAL SLIT FORESKIN EXCEPT - General [facility] 10-31-2023 Note HNO ID: [id number] Author: HEAVEN CAMACHO MD Service: Urology Author [...] clinical indicators: x Hypophosphatemia Other, please specify [facility] 10-31-2023 Note HNO ID: [id number] Author: BEATRIZ MEHTA MD Service: General Surgery [...] Mehta MD General Surgery Resident General Surgery: [id number] On nights (6 pm to 6 am) and on Weekends/Holidays, please page the on-call pager: [phone] 10/31/23 2:39 AM [facility] 10-31-2023 Note HNO ID: [id number] Author: JUAQUIN KRISHNAMURTHY RN Service: Nursing Author Type: Registered Nurse Type: Progress Notes Filed: 10/31/2023 01:48 Note Text: Messaged Night team Dr. Mehta about haskins drainage turning bloody. Patient is asleep and comfortable [facility] 10-30-2023 Note HNO ID: [id number] Author: JEREMIE JOAQUIN MD Service: ? Author [...] Image in Chart: No SIGNATURE: Nilay Zimmer APRN.EYEGLASS LENS GRINDER PATIENT NAME: Johnny Devine DATE: October 30, 2023 TIME: 8:11 AM CSN: [id number] [facility] 10-30-2023 Note HNO ID: [id number] Author: JEREMIE JOAQUIN MD Service: ? Author Type: Anesthesiologist Type: Anesthesia Procedure Notes Filed: 10/30/2023 11:59 Note Text: ANESTHESIOLOGY PROCEDURE NOTE Airway General Information Procedure Start Time/Medication Administration: 10/30/2023 7:46 AM Patient location during procedure: OR Timeout Performed Pre-procedure: timeout performed Consent Obtained: Yes Patient identity confirmed: arm band, care store team leader and patient Staffing Anesthesiologist: Jeremie Joaquin MD [...] October 30, 2023 TIME: 7:58 AM CSN: [id number] [facility] 10-30-2023 Note HNO ID: [id number] Author: FRANCK MAGDALENO MD Service: General Surgery [...] Andrews MD Acute Care Surgery Resident PAGER [phone] INTERVAL EVENTS / PERTINENT REVIEW OF SYSTEMS: [...] <1 day Indwelling Urinary Catheter 10/30/23 0130 [facility] [place] 8 Fr <1 day SURGERY/PROCEDURE: Procedure(s) and Anesthesia Type: * DORSAL SLIT FORESKIN EXCEPT - General [facility] 10-29-2023 Note HNO ID: [id number] Author: HERMAN SALOMON, MIRIAM Service: Care Management [...] by: Per Department Practice Potential Transition Plans Alf/Supervised Living Advance Directives Current Advance Directive: Other Document: See Comment (Legal guardian) In Chart: Yes Up To Date and Valid: Yes Current Living Arrangements and Support Lives with: Other person(s) [facility] Type of Residence: Alf Care Facility Name: [facility] Support: Home care staff, Family members How do you manage to accomplish the following: Independent: Ambulation Dependent: Bathe/Shower;Dress;Meals/Meal Prep;Going to the bathroom;Medication Management;Transportation to appointments/community Current Services/Equipment Current Post-Acute Service(s): None [place] of Choice Explained: [place] of Choice Given: No Reason Not Given: No placements necessary Are you interested in bedside delivery of your medications? No Discharge Planning Participant(s): Other person(s);Guardian Name/Relationship: Magi/Packaging Clerk Patient/Family Comments: Caregiver Assessment: Caregiver is ready, willing and able to meet the patient's needs as recommended by the inter-professional team: Yes Name of Caregiver: [facility] Transport at Discharge: Transportation Arrangements: Car Destination: Home Needs Prior to Discharge: Needs Prior to Discharge: To Be Determined Post-Acute Discharge Plan: 33 year old male POD #0 diagnostic laparoscopy. Patient is non-verbal, developmental delay and lives in halfway. CM met with patient's legal guardian Delbert and social group worker Magi at bedside. Plan is to return to halfway at discharge. Per Magi [phone]. [phone], she will provide transport. Magi is requesting an abdominal binder at discharge due to patient's history of self-injurious behavior. CM will continue to follow for transitional care needs. SIGNATURE: Herman Salomon RN PATIENT NAME: Johnny Devine DATE: October 29, 2023 TIME: 4:00 PM CONTACT #: [phone] [facility] 10-29-2023 Note HNO ID: [id number] Author: KENZIE MORE APRN.EYEGLASS LENS GRINDER Service: ? Author Type: Nurse Rattan Worker Type: Anesthesia Procedure Notes Filed: 10/29/2023 10:18 Note Text: ANESTHESIOLOGY PROCEDURE NOTE Airway General Information Procedure Start Time/Medication Administration: 10/29/2023 10:00 AM Patient location during procedure: OR Timeout Performed Pre-procedure: timeout performed Consent Obtained: Yes Patient identity confirmed: arm band, care store team leader and family Staffing EYEGLASS LENS GRINDER: Kenzie More APRN.EYEGLASS LENS GRINDER Indications and Patient Condition Indications for airway [...] no Airway not difficult SIGNATURE: Kenzie More APRN.EYEGLASS LENS GRINDER PATIENT NAME: Johnny Devine DATE: October 29, 2023 TIME: 10:17 AM CSN: [id number] [facility] 10-29-2023 Note HNO ID: [id number] Author: ANA LUISA FARR MD Service: General [...] Farr MD Acute Care Surgery Resident PAGER [phone] INTERVAL EVENTS / PERTINENT REVIEW OF SYSTEMS: [...] Anesthesia Type: * EXPLORATORY LAPAROTOMY - General [facility] 10-28-2023 History of Past i llness Narrative Problem Noted Date Diagnosed Date Resolved Date SBO (small bowel obstruction) 10/28/2023 10/31/2023 documented as of this encounter (statuses as of 11/12/2023) [facility]03-10-2024 History of Past illness Narrative* Problem Noted Date Diagnosed Date Resolved Date SBO (small bowel obstruction) 10/28/2023 10/31/2023 documented as of this encounter (statuses as of 11/29/2023) [facility]03-10-2024 History of Past illness Narrative* Problem Noted Date Diagnosed Date Resolved Date SBO (small bowel obstruction) 10/28/2023 10/31/2023 documented as of this encounter (statuses as of 12/04/2023) [facility]03-10-2024 History of Past illness Narrative* Problem Noted Date Diagnosed Date Resolved Date SBO (small bowel obstruction) 10/28/2023 10/31/2023 documented as of this encounter (statuses as of 12/06/2023) [facility]11-27-2023 Hospital Discharge instructions* Discharge Instructions* Yobany Smith [...] be sent through Care Everywhere. * Bradycardia (Cymraes) documented in this [id number] NoteSurgical Attestation: I have reviewed the patient's History and Physical Examination. I have personally seen and evaluated the patient, repeating knox portions. There is no significant interval change. Surgery is still indicated. Yes Consent reviewed and signed by patient/family: Yes Operative site verified and marked: site verified but not marked as not anatomically possible Bobbi OswaldADOLFO 07/16/2023 7:09 AMThe [facility] [id number] Emergency department Note* Leila Cifuentes RN - 07/16/2023 8:01 AM EST Permission treat given from Cate legal guardian [id number] Emergency department Note* Leila Cifuentes RN - 07/16/2023 8:01 AM EST Permission treat given from Cate legal guardian documented in this [id number] Evaluation + Plan note Diagnostic Tests Pending * [place] Level 07/04/23 [facility]11-07-2023 Telephone encounter Note* Telephone Encounter - Shanna Sauceda RN - 06/26/2023 11:14 AM EST Informed Consent for dental surgery & Anesthesia consent obtained and scanned into Malhar. Scheduled for surgery 07/16/2023. [id number] Miscellaneous Notes* Telephone Encounter - Shanna Sauceda RN - 06/26/2023 11:14 AM EST Informed Consent for dental surgery & Anesthesia consent obtained and scanned into Malhar. Scheduled for surgery 07/16/2023. documented in this [id number] NotePresurgical Evaluation (Pre-Admission Testing) Consultation Johnny Devine, [id number] 32 year old Male 06/22/2023 Consult placed [...] T wave abnor (more content not included)...[employer] [id number] Evaluation note* PSE Appt H&P - Lacey Wilson MD - 06/22/2023 3:10 PM EDT Presurgical Evaluation (Pre-Admission Testing) Consultation Johnny Devine, [id number] 32 year old Male 06/22/2023 Consult placed [...] Harpreet Mccurdy DDS; Location: [facility] [place]; Service: Dental ANESTHESIA REVIEW OF SYSTEMS: Eyes/ENT: [...] - referring and communicating with other health critical care technician (when not separately reported) - documenting clinical information in the electronic or other health record - independently interpreting results (not separately reported) and communicating results to the patient/family/caregiver - care coordination (not separately reported). Interviewer signature: Lacey Wilson MD 3:10 PM 06/22/2023 [id number] Miscellaneous Notes* PSE Appt H&P - Lacey Wilson MD - 06/22/2023 3:10 PM EDT Presurgical Evaluation (Pre-Admission Testing) Consultation Johnny Devine, [id number] 32 year old Male 06/22/2023 Consult placed [...] Harpreet Mccurdy DDS; Location: [facility] [place]; Service: Dental ANESTHESIA REVIEW OF SYSTEMS: Eyes/ENT: [...] - referring and communicating with other health critical care technician (when not separately reported) - documenting clinical information in the electronic or other health record - independently interpreting results (not separately reported) and communicating results to the patient/family/caregiver - care coordination (not separately reported). Interviewer signature: Lacey Wilson MD 3:10 PM 06/22/2023 documented in this [id number] Miscellaneous Notes* Telephone Encounter - Lory [facility] - 05/18/2022 3:18 PM EDT Cate, aunt, was leaving Dr Morales a message: At this time, the family would like to hold off on cataract surgery. Fyi * Telephone Encounter - Grupo Morales MD - 05/18/2022 2:23 PM EDT Called today and yesterday after clinic to discuss. No answer, left msg to call back and leave a message. * Telephone Encounter - [facility] - 05/17/2022 3:31 PM EDT Pt's aunt returning a call to Dr. Morales to discuss eye care for Johnny. Please try to reach her again at [phone] (Cate Castle) [facility] Miscellaneous Notes* Telephone Encounter - [facility] - 05/08/2022 9:01 AM EDT Nurse from [facility] where he resides called for [facility] for his file. Attn: Melanie Pickard [phone]. Surgery schedulers name and # was provided. documented in this [facility]09-16-2022 Miscellaneous Notes* Telephone Encounter - Grupo Morales [...] ADLs currently. He currently lives in a halfway and has a significant history of self-injurious behaviors including banging his head on things and punching his eyes. She believes cataract tarun result of trauma, and I agree with her. These behaviors still happen on a weekly basis, and whilethere's 12/03 supervision at the halfway, he has a lot of private time [...] week. Grupo Morales MD [facility] History of Present illness Narrative* Angel Sexton [...] 04, 2022 10:56 AM documented in this [facility] Telephone encounter Note * Telephone Encounter - Jose Miguel Jones - 03/29/2022 1:12 PM EDT Care Gaps Scheduling Contact Details: I did not contact pt. Encounter 07/15/21 indicates pt does not see providers at [facility] at this time. Health Maintenance Due: Medicare AWV / PCP Visit: Due Eye Exam: Not due Foot Exam: Not due Annual Blood Work: Due Mammogram: N/A FIT: Not due [id number] Miscellaneous Notes* Telephone Encounter - Jose Miguel Jones - 03/29/2022 1:12 PM EDT Care Gaps Scheduling Contact Details: I did not contact pt. Encounter 07/15/21 indicates pt does not see providers at [facility] at this time. 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 Other and combined forms of senile cataract [facility] Diagnosis Caries- Primary Unspecified dental caries [...] aftercare following surgery [facility] Diagnosis Phimosis- Primary Redundant prepuce and phimosis [facility] Diagnosis Screening for genitourinary condition Screening for other and unspecified genitourinary condition [facility] Diagnosis Caries- Primary Unspecified dental caries Pre-op testing- Primary Preoperative examination, unspecified Body mass index (BMI) 31.0-31.9, adult Caries Unspecified dental caries [facility] Diagnosis Sigmoid volvulus (HCC)- Primary Volvulus [facility] this [facility]* Diagnosis Caries- Primary Unspecified dental caries Pre-op testing- Primary Preoperative examination, unspecified Body mass index (BMI) 31.0-31.9, adult Caries Unspecified dental caries documented [facility]* Diagnosis Caries- Primary Unspecified dental caries documented in this encounter [facility] course Narrative No data available for this section [facility] Discharge instructions No data available for this section [facility] No data available for this section [facility] Summary Purpose Family History No Family [...] Caries Harpreet Mccurdy, DDS [address] [place] [address] [facility] PRE SURGICAL EVAL [address] [place] [id number] Referral ID Status Reason Start Date Expiration Date V isits Requested Visits Authorized [id number] Pending Review 05/25/2023 05/25/2024 1 1 Scheduling Instructions Your surgical team will reach out to you to schedule a preadmission testing appointment. Question Answer Reason for consult? Recommended PSE Risk Score Specialty Diagnoses / Procedures Referred By Johan mcfadden Referred To Contact Radiology Diagnoses Pre-op exam Procedures XR CHEST PA+LAT 2 VIEWS Franc Beyer MD [address] [place] [address] [facility] DIAGNOSTIC RADIOLOGY [address] [id number] Referral ID Status Reason Start Date Expiration Date Visits Re quested Visits Authorized [id number] Closed 06/22/2023 06/21/2024 1 1 Specialty Diagnoses / Procedures Referred By Contac t Referred To Contact Cardiology Diagnoses Bradycardia History of autism Nonverbal Moderate intellectual disability Yobany Smith PA-C [address] [id number] [facility] CARDIOLOGY HV [address] [place] [address] Referral ID Status Reason Start Date Expiration Date V isits Requested Visits Authorized [id number] Pending Review 07/16/2023 07/16/2024 3 3 Scheduling Instructions Please call the [facility] at [phone] to schedule an appointment if one was [...] (HCC) Procedures CONSULT TO COLO-RECTAL SURGERY OFFICE/OUTPATIENT [facility] 60 MINUTES Victoria Sanchez APRN.[facility] [address] [address] Juventino Fairbanks MD [address] [place] [address] Referral ID Status Reason Start Date Expiration Date Visits Requested Visits Authorized [id number] Authorized PCP Requested Referral 12/20/2023 12/19/2024 1 [...] PA+LAT 2 VIEWS Franc Beyer MD [address] [place] [address] [facility] DIAGNOSTIC RADIOLOGY [address] [place] [address] Referral ID Status Reason Start Date Expiration Date Visits Re quested Visits Authorized [id number] Closed 06/22/2023 06/21/2024 1 1 Reason Onset Date Comments Pre-surgical Evaluation 06/26/2023 Informed Consent for dental surgery & Anesthesia consent obtained Reason Comments bradycardia Low HR (33) Specialty Diagnoses / Procedures Referred By Johan mcfadden Referred To Contact Ambulatory Surgery Diagnoses Caries Caries [K02.9] Procedures UNLISTED PROCEDURE, DENTOALVEOLAR STRUCTURES ANESTHESIA, INTRAORAL PROC, W/BX; NOS DENTAL RESTORATIONS Harpreet Mccurdy, DDS [address] [id number] [facility] [address] [place] [phone] Phone: [phone] Referral ID Status Reason Start Date Expiration Date Visits Re quested Visits Authorized [id number] 3 3 Reason Comments 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 CHRISTINA completed - consent request sent to main - see future encounter for results. 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 Diagnoses / Procedures Referred By Johan mcfadden Referred To Contact Ambulatory Surgery Diagnoses Caries Caries [K02.9] Procedures UNLISTED PROCEDURE, DENTOALVEOLAR STRUCTURES ANESTHESIA, INTRAORAL PROC, W/BX; NOS DENTAL RESTORATIONS Mari Yi, ANIYAH [address] [place], [place] [id number] [facility] [address] [place] [phone] Phone: [phone] Referral ID Status Reason Start Date Expiration Date Visits Re quested Visits Authorized [id number] 3 3 Care Teams (unrecognized sec tion and content) Classroom Instructional Aide Relationship Specialty Start Date End Date Aileen Corcoran DDS [address] [place], [place] [id number] Resident Dentistry 08/20/20 Classroom Instructional Aide Relationship Specialty Start Date End Date Aileen Corcoran DDS [address] [place], [place] [id number] Resident Dentistry 08/20/20 Classroom Instructional Aide Relationship Specialty Start Date End Date Aileen Corcoran DDS [address] [place], [place] [phone] Resident Dentistry 08/20/20 Classroom Instructional Aide Relationship Specialty Start Date End Date Aileen Corcoran DDS [address] [place], [place] [id number] Resident Dentistry 08/20/20 Classroom Instructional Aide Relationship Specialty Start Date End Date Aileen Corcoran DDS [address] [place] [address] Resident Dentistry 08/20/20 Classroom Instructional Aide Relationship Specialty Start Date End Date Aileen Corcoran DDS [address] [place], [place] [id number] Resident Dentistry 08/20/20 Classroom Instructional Aide Relationship Specialty Start Date End Date Aileen Corcoran DDS [address] [place] [phone] Resident Dentistry 08/20/20 Classroom Instructional Aide Relationship Specialty Start Date End Date Aileen Corcoran DDS [address] [place] [phone] Resident Dentistry 08/20/20 Classroom Instructional Aide Relationship Specialty Start Date End Date Aileen Corcoran DDS [address] [place] [phone] Resident Dentistry 08/20/20 Classroom Instructional Aide Relationship Specialty Start Date End Date Aileen Corcoran DDS [address] [place] [phone] Resident Dentistry 08/20/20 Classroom Instructional Aide Relationship Specialty Start Date End Date Aileen Corcoran DDS [address] [place] [phone] Resident Dentistry 08/20/20 Classroom Instructional Aide Relationship Specialty Start Date End Date Aileen Corcoran DDS [address] [place] [phone] Resident Dentistry 08/20/20 Classroom Instructional Aide Relationship Specialty Start Date End Date Aileen Corcoran DDS [address] [place] [phone] Resident Dentistry 08/20/20 Ling Coffman APRN-CNP [address] [place] [phone] [employer]GER Anesthesiology 01/19/24 Source Comments (unrecognize d section and content) In the event this informatio n is protected by the Federal Confidentiality of Alcohol and Drug Abuse Patient Records regulations: The Federal rules restrict any use of the information to criminally investigate or prosecute any alcohol or drug abuse patient.[facility] the event this information is protected by the Federal Confidentiality of Alcohol and Drug Abuse Patient Records regulations: The Federal rules restrict any use of the information to criminally investigate or prosecute any alcohol or drug abuse patient.[facility] the event this information is protected by the Federal Confidentiality of Alcohol and Drug Abuse Patient Records regulations: The Federal rules restrict any use of the information to criminally investigate or prosecute any alcohol or drug abuse patient.[facility] the event this information is protected by the Federal Confidentiality of Alcohol and Drug Abuse Patient Records regulations: The Federal rules restrict any use of the information to criminally investigate or prosecute any alcohol or drug abuse patient.[facility] the event this information is protected by the Federal Confidentiality of Alcohol and Drug Abuse Patient Records regulations: The Federal rules restrict any use of the information to criminally investigate or prosecute any alcohol or drug abuse patient.[facility] the event this information is protected by the Federal Confidentiality of Alcohol and Drug Abuse Patient Records regulations: The Federal rules restrict any use of the information to criminally investigate or prosecute any alcohol or drug abuse patient.[facility] the event this information is protected by the Federal Confidentiality of Alcohol and Drug Abuse Patient Records regulations: The Federal rules restrict any use of the information to criminally investigate or prosecute any alcohol or drug abuse patient.[facility] the event this information is protected by the Federal Confidentiality of Alcohol and Drug Abuse Patient Records regulations: The Federal rules restrict any use of the information to criminally investigate or prosecute any alcohol or drug abuse patient.[facility] the event this information is protected by the Federal Confidentiality of Alcohol and Drug Abuse Patient Records regulations: The Federal rules restrict any use of the information to criminally investigate or prosecute any alcohol or drug abuse patient.[facility] the event this information is protected by the Federal Confidentiality of Alcohol and Drug Abuse Patient Records regulations: The Federal rules restrict any use of the information to criminally investigate or prosecute any alcohol or drug abuse patient.[facility] (unrecognized sect ion and content) No Status Records FoundNo Status Records FoundNo Status Records FoundNo Status Records FoundNo Status Records FoundNo Status Records Found INFORMATION SOURCE (unrecogn ized section and content) DATE CREATED AUTHOR [facility] DATE CREATED AUTHOR AUTHOR'S ORGANIZ ATION 01/05/2024 [employer] [facility] DATE CREATED AUTHOR AUTHOR'S ORGANIZ ATION 01/13/2024 [facility] DATE CREATED AUTHOR AUTHOR'S ORGANIZ ATION 01/29/2024 [facility] DATE CREATED AUTHOR AUTHOR'S ORGANIZ ATION 02/15/2024 [facility] DATE CREATED AUTHOR AUTHOR'S ORGANIZ ATION 02/22/2024 [facility] Scheduled Active and Recently Administ ered Medications [...] socket sites after extraction) lidocaine-epinephrine (XYLOCAINE) 2 %-1:299206 injection (CANCELED) PRN, Starting on Sun12/28/23 at [...] BE BASED ON THE PRIMARY CLINICAL RECORDS. [facility]. provides no warranty or guarantee of the accuracy or completeness of information in this document.
[2024-05-20 07:58] LABS: Bilirubin Urine NEGATIVE (NEGATIVE); Blood Urine NEGATIVE (NEGATIVE); Clarity Urine CLEAR (CLEAR); Color Urine LT. YELLOW (YELLOW); Glucose Urine UA NEGATIVE (NEGATIVE); Ketones Urine NEGATIVE (NEGATIVE); Leukocyte Esterase Urine NEGATIVE (NEGATIVE); Nitrite Urine NEGATIVE (NEGATIVE); Protein Urine NEGATIVE (NEG/TRACE); Specific Gravity Urine <=1.005 (1.005-1.025); Urobilinogen Urine 0.2 EU/dL (0.2-1.0)
[2024-05-20 08:00] LABS: Urine Microscopic Indicated NO
== END 2024-05-19 04:01 | disposition home or self-care (01) ==
LOC: LAB 04:00
PROVIDERS: PCP Family Medicine; Visit Provider Family Medicine
DX: R41.82 Altered mental status, unspecified (principal); R53.83 Other fatigue
CPT/HCPCS: 81003

== ENCOUNTER 2024-07-01 06:59 | Outpatient (OUT) | payer MEDICARE, MEDICAID, SELFPAY ==
--- OUTSIDE RECORDS SUMMARY | 2024-07-01 07:02 | XMS_ITS | CCD ---
Author Organization [facility] Care Team Providers Care Personnel Representative Name Role Phone Jewell MATA, Gallagher Unavailable [phone] Unavailable Primary Care Provider Unavailabl e Unavailable [...] UNKNOWN Attending Unavailable PHOENIX CARDENAS Referring Unavailable BEFFASAMUEL Admitting Unava ilable GAN, ELIU Attending Unavailable CHEHRBHUPENDRA, OSCAR THOMAS Attending Unavailable DANIELVICTORIA Attending Unavailable CRANE, HERMAN Attending Unavailable CRANE, HERMAN Admitting Unavailable CRANE, HERMAN Admitting Unavailable CRANE, HERMAN Attending Unavailable CRANE, HERMAN Attending Unavailable CRANE, HERMAN Admitting Unavailable Markiv FLAT LOCKER-FORKLIFT TRUCK MECHANIC, Ling Unavailable [phone] EPIFANIO HUNTLEY Attending Unavailable EPIFANIO HUNTLEY Referring Unavailable CRIS WALTERS Attending Unavailable CRIS WALTERS Attending Unavailable Unavailable Primary Care Provider Unavailabl e Allergies Allergy Classification Reported Allergen(s) Allergy Type Date of Onset Reaction(s) Facility Macrolides (antibiotic) (1 source) Clarithromycin Drug Allergy 05-04-20 Other: See Comments [facility] (20 sources) Clarithromycin; Translations: [CLARITHROMYCIN] Propensity to adverse reactions to drug 06-12-20 [facility] Work Phone: (9 sources) Clarithromycin Drug Allergy 05-04-20 Other: See Comments [facility] (1 source) Clarithromycin Drug Allergy [facility] Repository Medications Current Medications Medication Drug [...] source) Diagnostic Dye Start: 05-04-2022 End: 05-04-2022 fluorescein-benoxi hilario 0.25-0.4 % 1 Drop (FLURESS) benzonatate 100 mg oral capsule (3 sources) Non-narcotic Antitussive take 1 capsule by mouth three times daily as needed for cough benzonatate (Tessalon) 100 MG capsule Take 100 mg by mouth 3 (three) times a day as needed for cough Do not crush or chew. Active bisacodyl 10 mg rectal suppository (9 sources) Stimulant Laxative Start: 08-23-2023 End: 12-03-2023 take 10 mg rectal route once daily bisacodyl (DULCOLAX) 10 MG suppository Insert 10 mg in the rectum daily. 08/23/2023 Active take 10 mg rectal route once bis acodyl (Fleet Bisacodyl) 10 MG/30ML enema Insert 10 mg into the rectum 1 (one) time Active Comment on above: 1 Suppository by REC JOSE JUAN route once daily. 12 hr buPROPion hydrochloride 100 mg extended release oral tablet (2 sources) Aminoketone take 1 tablet by mouth once daily buPROPion SR (Wellbutrin SR) 100 MG 12 hr tablet Take 100 mg by mouth Daily Active calcium carbonate 1250 mg / cholecalciferol 200 unt oral tablet (20 sources) Vitamin D Start: 021 take 1 tablet by mouth twice daily Calcium Carbonate-Vitamin D (Oyster Shell Calcium/D) 500-200 MG-UNIT TABS Take 1 Tablet by mouth 2 times daily. 01/13/2021 Active Comment on above: Take 1 tablet by linda twice daily. chlorhexidine gluconate 1.2 mg/ml mouthwash (3 sources) Start: chlorhexidine (Peridex) 0.12 % oral solution Swish and expectorate twice a day. Do not swallow 473 mL 12/28/2023 Active clomiPRAMINE hydrochloride 75 mg oral capsule (20 sources) Tricyclic Antidepressant Start: End: clomiPRAMINE (ANAFRANIL) 75 mg capsule cloNIDine hydrochloride 0.2 mg oral tablet (20 sources) Central alpha-2 Adrenergic Agonist Start: take 1 tablet by mouth three times [...] 1 ml denosumab 60 mg/ml prefilled syringe (9 sources) RANK Ligand Inhibitor Start: inject 60 mg by subcutaneous injection once [...] MORNING FOR SINUS CONGESTION 0 03/21/2022 Active take 1 spray(s) nasal route once daily fluticasone (Flonase) 50 MCG/ACT nasal spray Administer 1 spray into each nostril Daily Shake gently. Before first use, prime pump. After use, clean tip and replace cap. Active FLUTICASONE PROP IONATE HFA INHALATION Inhale [...] by mouth 2 times daily. 01/13/2021 Active take 3 tablets by mouth every fo ur hours guaiFENesin (Humibid 3) 400 MG tablet Take 400 mg by mouth every 4 (four) hours Active Comment on above: Take 600 mg by mouth twice daily. 24 hr guanFACINE 4 mg extended release oral tablet (20 sources) Central alpha-2 Adrenergic Agonist Start: 01-21-2021 GuanFACINE HCl (TENEX) 4 MG er tablet 01/21/2021 Active take 2 tablets by mouth in the m orning guanFACINE (Tenex) 2 MG tablet Take 2 tablets by mouth in the morning. Active guanfacine (TENE X) 1 MG tablet guanfacine 1 mg tablet Active Comment on above: Take 4 mg by mouth o nce daily. ibuprofen 600 mg oral tablet (3 sources) Nonsteroidal Anti-inflammatory Drug Start: 12-28-19 24 take 1 tablet by mouth every six hours as needed for pain ibuprofen (MOTRIN) 600 MG tablet Take 1 Tablet by mouth every 6 hours as needed for Pain. 56 Tablet 12/28/2023 Active levothyroxine sodium 0.112 mg oral tablet (20 sources) l-Thyroxine Start: 04-27-20 22 take 1 tablet by mouth once daily levothyroxine (SYNTHROID) 112 mcg tablet Take 112 mcg by mouth once daily. 0 04/27/2022 Active levothyroxine (T irosint) 112 MCG capsule Take by mouth Daily before meals Active Comment on above: Take 112 mcg by mout h once daily. linaclotide 0.29 mg oral capsule (20 sources) Guanylate Cyclase-C Agonist Start: 07-09-2020 Linzess 290 MCG CAPS capsule 07/09/2020 Active Comment on above: Take 290 mcg by mout h once daily. lithium carbonate 300 mg oral capsule (20 sources) Start: 04-27-2022 lithium carbonate (ESKALITH) 300 mg capsule Start: 04-27-2022 lithium carbon ate (ESKALITH) 300 mg capsule Take 300 mg by mouth two times a day. 1999 0 04/27/2022 Active Comment on above: Take 300 mg by mouth two times a day. 1999 loratadine 10 mg oral tablet (9 sources) loratadine (Clar itin) 10 MG tablet Take by mouth Active take 1 capsule by mo uth once daily at bedtime loratadine 10 mg [...] take 1 tablet by linda th every eight hours as needed for anxiety LORazepam (Ativan) 2 MG tablet Take 2 mg by mouth every 8 (eight) hours if needed for anxiety Active take 1 tablet by linda th every six hours as needed for anxiety lorazepam (ATIVAN) 2 MG tablet Take 2 mg by mouth every 6 hours as needed for Anxiety. Active Comment on above: TAKE ONE TABLET BY M OUTH 3 TIMES DAILY ATIVAN metoprolol tartrate 50 mg oral tablet (20 sources) beta-Adrenergic Antony Start: 01-22-20 21 metoprolol (LOPRESSOR) 50 MG tablet 01/21/2021 Active montelukast 10 mg oral tablet (12 sources) Leukotriene Receptor Antagonist take 1 tablet by mouth at bedtime montelukast (Singulair) 10 MG tablet Take 10 mg by mouth at bedtime Active Comment on above: Take 10 mg by mouth daily at bedtime. mupirocin 0.02 mg/mg topical ointment (3 sources) RNA Synthetase Inhibitor Antibacterial mupirocin (Bactroban) 2 % ointment Apply 1 application topically in the morning and 1 application in the evening and 1 application before bedtime. Active naloxone hydrochloride 40 mg/ml nasal spray (3 sources) Opioid Antagonist Start: 12-28-19 24 naloxone 4 mg/0.1 mL nasal liquid Use 1 Sabetha in one nostril (alternate sides) as needed for Drug Overdose for up to 1 dose. Every 2-3 mins. until help arrives. 2 Each 1 12/28/2023 Active naltrexone hydrochloride 50 mg oral tablet (20 sources) Opioid Antagonist Start: 04-19-20 22 take 2 tablets by mouth twice daily naltrexone (TREXAN) 50 mg tablet TAKE TWO TABLETS BY MOUTH TWICE DAILY REVIA 0 04/19/2022 Active Start: 04-19-2022 take 1 tablet by linda th twice daily naltrexone (TREXAN) 50 mg tablet Take 50 mg by mouth two times a day. 0 04/19/2022 Active take 1 tablet by linda th once daily naltrexone (DEPADE) 50 MG tablet Take 50 mg by mouth daily. Active Comment on above: TAKE TWO TABLETS BY MOUTH TWICE DAILY REVIA Take 50 mg by mouth two times a day. ondansetron 4 mg oral tablet (3 sources) Serotonin-3 Receptor Antagonist take 1 tablet by mouth every eight hours as needed for nausea and vomiting ondansetron (Zofran) 4 MG tablet Take 1 tablet by mouth every 8 (eight) hours if needed for nausea or vomiting Active polyethylene glycol 3350 67399 mg powder for oral solution (20 sources) Osmotic Laxative Start: 1 End: 4 polyethylene glycol 3350 (MIRALAX, GLYCOLAX) 17 gram/dose powder Take 17 g by mouth once daily. 0 03/21/2022 Active Comment on above: TAKE 17G WITH LIQUID BY MOUTH DAILY IN THE MORNING Take 17 g by mouth o nce daily. POLYETHYLENE GLYCOL EXTERNAL (3 sources) Start: 4 take 17 g by mouth once daily [...] t wo times a day. 1999 sennosides, shelter 8.6 mg oral capsule (20 sources) Sennosides [...] Active take 1 tablet by linda th in the morning sertraline (Zoloft) 50 MG tablet Take 50 mg by mouth in the morning. Active Comment on above: Take 50 mg [...] sodium 125 mg delayed release oral capsule (16 sources) Mood Stabilizer, Anti-epileptic Agent Start: 12-12-2023 divalproex (DEPAKOTE SPRINKLE) 125 MG CSDR capsule 125 mg 2 times daily. 12/12/2023 Active take 4 tablets by mouth in the m orning divalproex (Depakote) 125 MG EC tablet Take 4 tablets by mouth in the morning and 4 tablets before bedtime. Do not crush, chew, or split.. Active divalproex DR (D EPAKOTE) 125 mg [...] Obsessive-compulsive disorder; Translations: [Obsessive-compulsive disorder, unspecified] Onset: 09-16-19 19 07-15-2019 Chronic Cataract (1 source) Senile combined form [...] Bipolar disorder; Translations: [Bipolar disorder, unspecified] Onset: 09-16-19 19 07-15-2019 Chronic Osteoporosis (5 sources) Age-related osteoporosis without current pathological fracture; Translations: [AGE-REL OSTEOPOR W/O CURR PATH FX] Onset: 08-25-19 Chronic Other aftercare (5 sources) Other extermination supervisor (current) drug therapy; Translations: [OTH LONG-TERM CURRENT DRUG THERAPY] Onset: 12-04-19 Episodic Other [...] [Other specified postprocedural states] Onset: 11-05-1911-05-2023 Episodic Residual codes; unclassified (5 sources) Lack of awareness; Translations: [Unspecified symptoms and signs involving cognitive functions and awareness] Onset: 01-29-2001-29-2024 Episodic Screening and history of mental health [...] Remisol Chem Physician Orderon 02-13-2024 Physician Order [id number]# 1.00TIFF Normal [facility] Valproic Acidon 02-13-2024 Valpro Acid Lvl 98 microgram/mL Normal 50-99 Fish er [facility] Comment on above: Performed By: #### 2 [id number] #### [facility] [address] [place] [address] [facility] 01-11-2024 CNPN Telephone ([facility]) JOHNNY DEVINE ([id number]) 1990 M Date Time Provider Department 01/11/24 CRIS DINH During your visit today, we recorded the following information about you: Cris Dinh, RN 01/11/2024 1:50 PM Signed Jessica from [facility] [phone] is caller. 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 020, 1999 - loratadine 10 mg cap Take [...] mouth two times a day. 799, 1999 - sertraline (ZOLOFT) 100 mg tablet Take 50 mg by mouth once daily. Take with 50 mg zoloft in the morning. Problem List As Of Date 01/11/2024 Noted Resolved SBO (small bowel obstruction) ([facility]) [K56.609] 10/28/2023 10/31/2023 Bipolar disorder (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) [G40.909] 11/06/2023 Encounter Status:Closed by CRIS DINH on 01/11/24 Normal [facility] Anesthesia Postprocedure Irish luationon 12-28-2023 Bag Machine Operator Helper Authentication Interface Message Text Anesthesia Postoperative Assessment: [...] EVENTS: No notable events documented. Normal [facility] Anesthesia Preprocedure Eval uationon 12-28-2023 Bag Machine Operator Helper Authentication Interface Message Text ASA: 3 NPO [...] and physical examination. Attestation: MHPATFORM Normal [facility] Anesthesia Transfer Of Careo n 12-28-2023 Bag Machine Operator Helper Authentication Interface Message Text Patient taken to [...] DENTAL RESTORATIONS; Surgeon: Harpreet Mccurdy DDS; Location: [facility] Surgery [place]; Service: Dental Allergies: Biaxin [clarithromycin] Basic Operating Room Facts: Surgeon(s): Mari Yi DMD Anesthesiologist: Linda Saldivar MD [place] MACHINE OPERATOR: Selena Camacho APRN-CRNA DENTAL RESTORATIONS (Bilateral: Mouth) [...] None Lines, Drains, Airways Peripheral IV Access: 12/28/23934 20 gauge Right Antecubital (Active) Site Assessment WNL;Dressing intact 12/28/23934 Infusion Status Port #1 Infusing;Patent 12/28/23934 Airway Insertion Details [REMOVED] Advanced Airway: ETT, [...] 0418 141 110 21 91 Comment: The [place] Diabetes Association (ADA) provides guidance for cutoff [...] Standards of Medical Care in Diabetes 2016, [place] Diabetes Association. Diabetes Care. 2016.39(Suppl 1). 8 0.70 8.2 11/06/23 0943 146 112 18 83 Comment: The [place] Diabetes Association (ADA) provides guidance for cutoff [...] Standards of Medical Care in Diabetes 2016, [place] Diabetes Association. Diabetes Care. 2016.39(Suppl 1). 6 0.69 8 (more content not included)... Normal [facility] Blood Attestationon 12-28-19 Bag Machine Operator Helper Authentication Interface Message Text Blood Attestation: ATTESTATION OF INFORMED CONSENT FOR BLOOD: The transfusion of blood and/or blood components were discussed with the patient and/or legal group sales representative. The risks, benefits and alternatives were reviewed. Questions regarding blood transfusions were answered. The patient /or the patient's legal group sales representative agree with the plan for transfusion of blood and/or blood components. Normal [facility] Brief Operative Noteon 12-27 Bag Machine Operator Helper Authentication Interface Message Text Brief Operative Note PHE OR 3 Johnny Devine 33 year old male Surgical Contact Serial Number: [id number] Preoperative Diagnosis: Pre-op Diagnosis * Caries [K02.9] Moderate intellectual disability [F79] Postoperative Diagnosis: Moderate intellectual disability [F79] Procedures: Comprehensive exam [52817] Full mouth X-ray [ 03542] Extractions [25204] Restorations [13398] Prophy 60881] Fluoride treatment [08685] Surgeon(s): Surgeon(s): Mari Yi DMD Staff: Health Services Manager Nurse: Henrietta Johnson Anesthesia: General Anesthesia Staff: [...] Whiting DDS 12/28/2023 1;48 pm Normal [facility] OP Noteon 12-28-2023 Bag Machine Operator Helper Authentication Interface Message Text Surgical Case Number Data Unavailable Operating Room Data Unavailable Preoperative Diagnosis(es): Pre-op Diagnosis * Caries [K02.9] Moderate intellectual disability [F79] Postoperative Diagnosis(es): Moderate intellectual disability[F79] @ENCORD@ Surgeon: Dr. Mari Yi DMD Generator Operator Straight Bevel Gear Surgeon: Reema Whiting DDS Anesthesia: General- Nasal [...] 4 mg/0.1 mL nasal liquid Use 1 Sabetha in one nostril (alternate sides) as needed [...] Whiting DDS 12/28/2023 1:53 pm Normal [facility] Progress Noteson 12-28-2023 Bag Machine Operator Helper Authentication Interface Message Text Patient takes his seizure medication with pudding, facility held them today for dental surgery. Caregiver brought capsules with them to pre-op. Per Dr. Saldivar, divalproex 125 mg x 4 capsules (500 mg) were opened and sprinkles given to patient with 50 mL of water in pre-op. 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 MB cusp tip was visualized upon extraction of #17, but well encased in bone and would not be exposed to the oral cavity following healing of the extraction site. Preoperative Diagnosis(es): Pre-op Diagnosis * Caries [K02.9] Moderate intellectual disability [F79] Postoperative Diagnosis(es): Moderate intellectual disability[F79] Surgeon: Dr. Mari Yi DMD Generator Operator Straight Bevel Gear Surgeon: Reema Whiting DDS Anesthesia: General- Nasal [...] at end of surgery: Stable Normal [facility] CHRISTINA Appt Sandy Bag Machine Operator Helper Authentication Interface Message Text Addendum 12/21/2023- Caregiver @ [facility] facility called to relay that patient unable to take medications without pudding. Per Dr. Newell: Instruct them to take the meds at night. Please then coordinate with either the anesthesia team or surgical team to order IV depacon so he can get his depakote. I would have the facility bring his oral depakote for after surgery If they can't get the depacon at [place] CHRISTINA RN updated nursing staff @ [facility]. Normal [facility] BASIC METABOLIC PANELon 05-0 Anion gap [Moles/Vol] 13 mmol/L Normal 10-20 [facility] Comment on above: Performed By: #### C H8 #### [facility] [address] [place] [address], [id number] Calcium [Mass/Vol] 9.9 mg/dL Normal 8.6-10.3 [facility] Comment on above: Performed By: #### C H8 #### [facility] [address], [place], Chloride [Moles/Vol] 106 mmol/L Normal 98-107 [facility] Comment on above: Performed By: #### C H8 #### [facility] [address], [place], CO2 [Moles/Vol] 25 mmol/L Normal 21-31 [facility] Comment on above: Performed By: #### C H8 #### [facility] [address], [place], Creatinine [Mass/Vol] 0.93 mg/dL Normal 0.70-1.30 [facility] Comment on above: Performed By: #### C H8 #### [facility] [address], [place], ESTIMATED GFR (CKD-EPI) 113 mL/min/1.73sqm Normal >=60 [facility] Comment on above: Result Comment: 2020 [...] Inclusion of Race in Diagnosing Kidney Disease. [place] Journal of Kidney Diseases 2021;79(2):268-88.e1. 2. N Engl J Med 1 Vol. 385 Issue 19 Pages 4527-3980 Performed By: #### C H8 #### [facility] [address], [place], Glucose [Mass/Vol] 115 mg/dL High 74-[address] [facility] Comment on above: Performed By: #### C H8 #### [facility] [address], [place], Potassium [Moles/Vol] 4.6 mmol/L Normal 3.5-5.[address] [facility] Comment on above: Performed By: #### C H8 #### [facility] [address], [place], Sodium [Moles/Vol] 139 mmol/L Normal 136-145 [facility] Comment on above: Performed By: #### C H8 #### [facility] [address], [place], Urea nitrogen [Mass/Vol] 15 mg/dL Normal 7-25 [facility] Comment on above: Performed By: #### C H8 #### [facility] [address], [place], Basic metabolic 2000 panelon 12-19-2023 Anion [...] Inclusion of Race in Diagnosing Kidney Disease. [place] Journal of Kidney Diseases 202;79(2):268-88.e1. 2. N Engl J Med 2020 Vol. 385 Issue 19 Pages 7166-1953 Glucose [Mass/Vol] 115 mg/dL High 74 - 109 mg/dL [facility] Interpretation and review of laboratory results Abnormal [facility] Potassium [Moles/Vol] 4.6 mmol/L 3.5 - 5.0 mmol/L [facility] Sodium [Moles/Vol] 139 mmol/L 136 - 145 mmol/L [facility] Urea nitrogen [Mass/Vol] 15 mg/dL 7 - 25 mg/dL [facility] PAT Appt Sandy Bag Machine Operator Helper Authentication Interface Message Text Patient was identified by name and date of . Jaswinder Arredondo Patient at risk for falls:No Falls Risk protocol implemented: N/A Normal [facility] Patient Instructionson 12-18 Bag Machine Operator Helper Authentication Interface Message Text [facility] staff: Since patient is unable to take [...] for pain. Please hold all Vitamin E, Rice 3, fish oil and herbal supplements for 1 week prior to surgery. Please use this LIST to prepare for your surgery/procedure: ? Assume that any lab or testing done during your Pre-admission testing appointment is within normal limits unless otherwise contacted. ? [facility] one business day prior to surgery [...] your Preparing for Your Surgery/Procedure booklet or [email or web address] ry if you have questions. Contact the Pre-Admission Testing department at [phone] or your surgeon's office with any questions [...] stay with you after surgery. Please call [employer] if you need transportation assistance or have concerns about going home [phone]. ? SLEEP APNEA PATIENTS: Bring your sleep apnea machine and mask. ? PLEASE BE ON TIME. A late arrival may result in the cancellation/ delay of your surgery. Thank you for choosing [facility]; it is our pleasure to care for you Normal [facility] 12-03-2023 [facility] Office Visit (UROLMN ) JOHNNY DEVINE ([id number]) 1990 M Date Time Provider Department 12/03/23 1:00 PM OSCAR RUIZ UROSHAWN During your visit today, we recorded the [...] 12/03/2023 Noted Resolved SBO (small bowel obstruction) ([facility]) [K56.609] 10/28/2023 10/31/2023 Bipolar disorder (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] Obesity, Class I, BMI 30-34.9 [E66.9] 11/02/2023 S/P laparoscopy [Z98.890] 11/05/2023 Acute postoperative pain [G89.18] 11/05/2023 Oropharyngeal dysphagia [R13.12] 11/06/2023 Epilepsy (HCC) [G40.909] 11/06/2023 Level of Service: OFFICE/OUTPATIENT EST PT MAY NOT REQ PHYS/QHP [19300] LOS History for Encounter Encounter Status:Closed by OSCAR RUIZ on 12/03/23 [facility] CNOVon 11-28-2023 CNOV Office Visit (MEHRANN ) JOHNNY DEVINE ([id number]) 1990 M Date Time Provider Department 11/28/23 [...] Victoria Sanchez APRN.CNP 11/28/2023 10:[address] [facility] Clinic Date: November 28, 2023 Johnny Devine 33 year old male CHIEF COMPLAINT: Patient presents for follow up from surgery. HPI: Here for follow up after diagnostic laparotomy on 10/29/[address] Robin. Patient also underwent a dorsal slit procedure with urology on 10/30/2023 for paraphimosis. Patient with a office automation clerk today to discuss his postoperative course since [...] mg by mouth two times a day. 08, 1999 sertraline (ZOLOFT) 100 mg tablet Take [...] ICD10: Z48.89 (more content not included)... 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) [K56.609] 10/28/2023 10/31/2023 Bipolar disorder (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] Obesity, Class I, BMI 30-34.9 [E66.9] 11/02/2023 S/P laparoscopy [Z98.890] 11/05/2023 Acute postoperative pain [G89.18] 11/05/2023 Oropharyngeal dysphagia [R13.12] 11/06/2023 Epilepsy (HCC) [G40.909] 11/06/2023 Encounter Status:Closed by CRIS DINH on 11/12/23 Normal [facility] Basic metabolic 2000 panelon 11-07-2023 Anion gap [Moles/Vol] 10 mmol/L Normal 9-18 [facility] Comment on above: Order Comment: Speci men Type: BLOOD SPECIMEN Ordering Facility: [facility] Address: [address] [place] [address] Performed By: #### 2 [id number], , [id number] #### [facility] CLIA [id number] [address] [place] [address] [place] Calcium [Mass/Vol] 8.2 mg/dL Low 8.5-10.2 [facility] Comment on above: Order Comment: Speci men Type: BLOOD SPECIMEN Ordering Facility: [facility] Address: [address] [place] [address] Performed By: #### 2 4321-2, , 2776-08 #### [facility] CLIA [id number] [address] [place] [address] [place] Chloride [Moles/Vol] 110 mmol/L High 97-105 [facility] Comment on above: Order Comment: Speci men Type: BLOOD SPECIMEN Ordering Facility: [facility] Address: [address] [place] [address] Performed By: #### 2 4321-2, , 2776-08 #### [facility] CLIA [id number] [address] [place] [address] [place] CO2 [Moles/Vol] 21 mmol/L Low 22-30 [facility] Comment on above: Order Comment: Speci men Type: BLOOD SPECIMEN Ordering Facility: [facility] Address: [address] [place] [address] Performed By: #### 2 4321-2, , 2776-08 #### [facility] CLIA [id number] [address] [place] [address] [place] Creatinine [Mass/Vol] 0.70 mg/dL Low 0.73-1.22 [facility] Comment on above: Order Comment: Sana zuñiga Type: BLOOD SPECIMEN Ordering Facility: [facility] Address: [address] [place] [address] Performed By: #### 2 4321-2, , 2776-08 #### [facility] CLIA [id number] [address] [place] [address] [place] Creatinine and Glomerular filtration rate.predicted panel (S/P/Bld) 126 mL/min/1.73m??? Normal >=60 [facility] Comment on above: Order Comment: Sana zuñiga Type: BLOOD SPECIMEN Ordering Facility: [facility] Address: [address] [place] [address] Result Comment: Lor mated Glomerular Filtration Rate [...] By: #### 2 4321-2, , 2776-08 #### [facility] CLIA [id number] [address] [place] [address] [place] Glucose [Mass/Vol] 91 mg/dL Normal 74-99 [facility] Comment on above: Order Comment: Sana zuñiga Type: BLOOD SPECIMEN Ordering Facility: [facility] Address: [address] [place] [address] Result Comment: The [place] [employer] (ADA) provides guidance for cutoff [...] Standards of Medical Care in Diabetes 2016, [place] [employer]. Diabetes Care. 2016.39(Suppl 1). Performed By: #### 2 4321-2, , 2776-08 #### [facility] CLIA [id number] [address] [place] [address] [place] Potassium [Moles/Vol] 4.4 mmol/L Normal 3.7-5.1 [facility] Comment on above: Order Comment: Akbari yogesh Type: BLOOD SPECIMEN Ordering Facility: [facility] Address: [address] [place] [address] Performed By: #### 2 4320-2, , 2776-08 #### [facility] CLIA [id number] [address] [place] [address] [place] Sodium [Moles/Vol] 141 mmol/L Normal 136-144 [facility] Comment on above: Order Comment: Sana zuñiga Type: BLOOD SPECIMEN Ordering Facility: [facility] Address: [address] [place] [address] Performed By: #### 2 432-2, , 2776-08 #### [facility] CLIA [id number] [address] [place], [place] [address] [place] Urea nitrogen [Mass/Vol] 8 mg/dL Low 9-24 [facility] Comment on above: Order Comment: Akbari men Type: BLOOD SPECIMEN Ordering Facility: [facility] Address: [address] [place], [place] [address] Performed By: #### 2 4321-2, , 2776-08 #### [facility] CLIA [id number] [address] [place] [address] [place] CBC panel Auto (Bld)on 11-06 Erythrocyte distribution width (RBC) [Ratio] 15.1 % High 11.5-15.0 [facility] Comment on above: Order Comment: Speci men Type: BLOOD SPECIMENOrdering Facility: [facility] Address: [address] [place] [address] Performed By: #### 5 8410-2 ####[facility] [id number] [place] [address] [place] Hematocrit (Bld) [Volume fraction] 31.4 % Low 39.0-51.0 [facility] Comment on above: Order Comment: Speci men Type: BLOOD SPECIMENOrdering Facility: [facility] Address: [address] [place] [address] Performed By: #### 5 8410-2 ####[facility] [id number] [place] [address] [place] Hemoglobin (Bld) [Mass/Vol] 9.9 g/dL Low 13.0-17.0 [facility] Comment on above: Order Comment: Speci men Type: BLOOD SPECIMENOrdering Facility: [facility] Address: [address] [place] [address] Performed By: #### 5 8410-2 ####[facility] [id number] [place] [address] [place] MCH (RBC) [Entitic mass] 27.3 pg Normal 26.0-34.0 [facility] Comment on above: Order Comment: Speci men Type: BLOOD SPECIMENOrdering Facility: [facility] Address: [address] [place] [address] Performed By: #### 5 8410-2 ####[facility] [id number] [place] [address] [place] MCHC (RBC) [Mass/Vol] 31.5 g/dL Normal 30.5-36.0 [facility] Comment on above: Order Comment: Speci men Type: BLOOD SPECIMENOrdering Facility: [facility] Address: [address] [place] [address] Performed By: #### 5 8410-2 ####[facility] [id number] [place] [address] [place] MCV (RBC) [Entitic vol] 86.5 fL Normal 80.0-100.0 [facility] Comment on above: Order Comment: Speci men Type: BLOOD SPECIMENOrdering Facility: [facility] Address: [address] [place] [address] Performed By: #### 5 8410-2 ####[facility] [id number] [place] [address] [place] Nucleated RBC (Bld) [#/Vol] 10*3/uL Normal <0.01 [facility] Comment on above: Order Comment: Speci men Type: BLOOD SPECIMENOrdering Facility: [facility] Address: [address] [place] [address] Performed By: #### 5 8410-2 ####[facility] [id number] [place] [address] [place] Platelet mean volume (Bld) [Entitic vol] 9.4 fL Normal 9.0-12.7 [facility] Comment on above: Order Comment: Speci men Type: BLOOD SPECIMENOrdering Facility: [facility] Address: [address] [place] [address] Performed By: #### 5 8410-2 ####[facility] [id number] [place] [address] [place] Platelets (Bld) [#/Vol] 215 10*3/uL Normal 150-400 [facility] Comment on above: Order Comment: Speci men Type: BLOOD SPECIMENOrdering Facility: [facility] Address: [address] [place] [address] Performed By: #### 5 8410-2 ####[facility] [id number] [place] [id number] [place] RBC (Bld) [#/Vol] 3.63 10*6/uL Low 4.20-6.00 [facility] Comment on above: Order Comment: Speci men Type: BLOOD SPECIMENOrdering Facility: [facility] Address: [address] [place] [address] Performed By: #### 5 8410-2 ####[facility] [id number] [place] [address] [place] WBC (Bld) [#/Vol] 8.67 10*3/uL Normal 3.70-11.00 [facility] Comment on above: Order Comment: Speci men Type: BLOOD SPECIMENOrdering Facility: [facility] Address: [address] [place] [address] Performed By: #### 5 8410-2 ####[facility] [id number] [place] [address] [place] CNCOon 11-07-2023 CNCO Letter Text Normal [facility] CNDSon 11-07-2023 CNDS HNO ID: [id number] Author: SAMUEL ROBIN MD Service: General Surgery [...] PSH who presents as a transfer to [facility] from [facility] ED for further management of small bowel obstruction. Given patient's baseline cognitive status, NGT difficult to maintain. He was admitted to the [facility] under care of general surgery and was taken to the OR the following morning for diagnostic laparoscopy. Intra-operative findings demonstrated no adhesins, no apparent hernias, dilated small/large bowel, redundant sigmoid c/f volvulus, easily reduced. After recovering in the PACU, he was taken to the [facility] with NGT in place. Patient arrived to [facility] with 8 Fr pediatric haskins catheter [...] in home regimen. Stable for discharge to nursing home. Neurology Recommendations on Discharge: - Discharge on anti-epileptic medications as prescribed - Please schedule outpatient follow-up with epilepsy - Please order outpatient MRI without contrast (3T epilepsy protocol) to be done prior to epilepsy appointment Active Hospital Problems Diagnosis Date Noted Oropharyngeal dysphagia 11/06/2023 [address] ([facility]) 11/06/2023 S/P laparoscopy 11/05/2023 Acute postoperative pain 11/05/2023 Obesity, Class I, BMI 30-34.9 11/02/2023 Developmental non-verbal disorder Obsessive-compulsive disorder 09/16/2018 Moderate intellectual disability 09/16/2018 Hypothyroidism 09/16/2018 Bipolar disorder ([facility]) 09/16/2018 Resolved Hospital Problems Diagnosis Date Noted Date Resolved SBO (small bowel obstruction) ([facility]) 10/28/2023 10/31/2023 Transitions of Care Critical Issues: Follow up with Dr. Fairbanks MRI as outpatient and follow up with Neurology in 2 weeks LABS AND PROCEDURES PENDING AT DISCHARGE: No pending results. CONSULTING TEAMS DURING HOSPIT (more content not included)... Normal [facility] CONSULT PROGon 11-07-2023 CONSULT PROG HNO ID: [id number] Author: BRUCE RESENDIZ MD Service: Neurology General [...] November 06, 2023 TIME: 8:36 AM Normal [facility] Magnesium SerPl-mCncon 11-06 Magnesium [Mass/Vol] 2.1 mg/dL Normal 1.7-2.3 [facility] Comment on above: Order Comment: Speci men Type: BLOOD SPECIMEN Ordering Facility: [facility] Address: [address] [place] [address] Performed By: #### 2 4321-2, 79351-1, 2777-1 #### [facility] CLIA [id number] [address] [place] [address] [place] [address] [place] NURSING PROGon 11-07-2023 NURSING PROG HNO ID: [id number] Author: MAYANK READ, MIRIAM Service: Nursing Author Type: Registered Nurse Type: Nursing Progress Note Filed: 11/07/2023 14:53 Note Text: Pt is discharged to a nursing home, shearing supervisor Magi just arrived to metal pickling equipment operator. Reviewed discharge paper works and handed it to the shearing supervisor. IV removed, pt tolerated. EEG removed by conservation technician. Normal [facility] NUTRITIONon 11-07-2023 NUTRITION HNO ID: [id number] Author: RAFAELA COOL DTR Service: Nutrition Therapy Author Type: Network Director Type: Nutrition Filed: 11/07/2023 13:38 Note Text: NUTRITION THERAPY CERTIFIED SURGICAL FIRST ASSISTANT NOTE SERVICE DATE: 11/07/2023 SERVICE TIME: 1000 [...] November 07, 2023 TIME: 1:38 PM Normal [facility] Phosphate SerPl-mCncon 11-06 Phosphate [Mass/Vol] 4.1 mg/dL Normal 2.7-4.8 [facility] Comment on above: Order Comment: Speci men Type: BLOOD SPECIMEN Ordering Facility: [facility] Address: [address] [place], [place] [address] Performed By: #### 2 4321-2, 60924-2, 2776- #### [facility] CLIA [id number] [address] [place], [place] [address] [place] Basic metabolic 2000 panelon 11-06-2023 Anion gap [Moles/Vol] 16 mmol/L Normal 9-18 [facility] Comment on above: Order Comment: Speci men Type: BLOOD SPECIMEN Ordering Facility: [facility] Address: [address] [place] [address] Performed By: #### 2 4321-2, , 2776-08 #### [facility] CLIA [id number] [address] [place] [address] [place] Calcium [Mass/Vol] 8.9 mg/dL Normal 8.5-10.2 [facility] Comment on above: Order Comment: Speci men Type: BLOOD SPECIMEN Ordering Facility: [facility] Address: [address] [place] [address] Performed By: #### 2 4321-2, , 2776-08 #### [facility] CLIA [id number] [address] [place] [address] [place] Chloride [Moles/Vol] 112 mmol/L High 97-105 [facility] Comment on above: Order Comment: Speci men Type: BLOOD SPECIMEN Ordering Facility: [facility] Address: [address] [place] [address] Performed By: #### 2 4321-2, , 2776-08 #### [facility] CLIA [id number] [address] [place], [place] [address] [place] CO2 [Moles/Vol] 18 mmol/L Low 22-30 [facility] Comment on above: Order Comment: Speci men Type: BLOOD SPECIMEN Ordering Facility: [facility] Address: [address] [place] [address] Performed By: #### 2 4321-2, , 2776-08 #### [facility] CLIA [id number] [address] [place] [address] [place] Creatinine [Mass/Vol] 0.69 mg/dL Low 0.73-1.22 [facility] Comment on above: Order Comment: Specdeshawn zuñiga Type: BLOOD SPECIMEN Ordering Facility: [facility] Address: [address] [place] [address] Performed By: #### 2 4321-2, , 2776-08 #### [facility] CLIA [id number] [address] [place] [address] [place] Creatinine and Glomerular filtration rate.predicted panel (S/P/Bld) 127 mL/min/1.73m??? Normal >=60 [facility] Comment on above: Order Comment: Sana zuñiga Type: BLOOD SPECIMEN Ordering Facility: [facility] Address: [address] [place] [address] Result Comment: Lor mated Glomerular Filtration Rate [...] By: #### 2 4321-2, , 2776-08 #### [facility] CLIA [id number] [address] [place] [address] [place] Glucose [Mass/Vol] 83 mg/dL Normal 74-99 [facility] Comment on above: Order Comment: Sana zuñiga Type: BLOOD SPECIMEN Ordering Facility: [facility] Address: [address] [place] [address] Result Comment: The [place] [employer] (ADA) provides guidance for cutoff [...] Standards of Medical Care in Diabetes 2016, [place] [employer]. Diabetes Care. 2016.39(Suppl 1). Performed By: #### 2 1-2, , 2776-08 #### [facility] CLIA [id number] [address] [place] [address] [place] Potassium [Moles/Vol] 4.9 mmol/L Normal 3.7-5.1 [facility] Comment on above: Order Comment: Akbari yogesh Type: BLOOD SPECIMEN Ordering Facility: [facility] Address: [address] [place] [address] Performed By: #### 2 4320-2, , 2776-08 #### [facility] CLIA [id number] [address] [place] [address] [place] Sodium [Moles/Vol] 146 mmol/L High 136-144 [facility] Comment on above: Order Comment: Sana zuñiga Type: BLOOD SPECIMEN Ordering Facility: [facility] Address: [address] [place] [address] Performed By: #### 2 4320-2, , 2776-08 #### [facility] CLIA [id number] [address] [place], [place] [address] [place] Urea nitrogen [Mass/Vol] 6 mg/dL Low 9-24 [facility] Comment on above: Order Comment: Akbari men Type: BLOOD SPECIMEN Ordering Facility: [facility] Address: [address] [place] [address] Performed By: #### 2 4321-2, , 2776-08 #### [facility] CLIA [id number] [address] [place], [place] [address] [place] CBC panel Auto (Bld)on 11-05 Erythrocyte distribution width (RBC) [Ratio] 14.8 % Normal 11.5-15.0 [facility] Comment on above: Order Comment: Speci men Type: BLOOD SPECIMEN Ordering Facility: [facility] Address: [address] [place] [address] Performed By: #### 2 777-1, 15864-6, #### [facility] CLIA [id number] [address] [place] [address] [place] Hematocrit (Bld) [Volume fraction] 31.3 % Low 39.0-51.0 [facility] Comment on above: Order Comment: Speci men Type: BLOOD SPECIMEN Ordering Facility: [facility] Address: [address] [place] [address] Performed By: #### 2 777-1, 39589-2, #### [facility] CLIA [id number] [address] [place] [address] [place] Hemoglobin (Bld) [Mass/Vol] 9.8 g/dL Low 13.0-17.0 [facility] Comment on above: Order Comment: Speci men Type: BLOOD SPECIMEN Ordering Facility: [facility] Address: [address] [place] [address] Performed By: #### 2 777-1, 14839-1, #### [facility] CLIA [id number] [address] [place], [place] [address] [place] MCH (RBC) [Entitic mass] 26.4 pg Normal 26.0-34.0 [facility] Comment on above: Order Comment: Speci men Type: BLOOD SPECIMEN Ordering Facility: [facility] Address: [address] [place] [address] Performed By: #### 2 777-1, 17438-1, #### [facility] CLIA [id number] [address] [place], [place] [address] [place] MCHC (RBC) [Mass/Vol] 31.3 g/dL Normal 30.5-36.0 [facility] Comment on above: Order Comment: Speci men Type: BLOOD SPECIMEN Ordering Facility: [facility] Address: [address] [place] [address] Performed By: #### 2 777-1, 93693-0, #### [facility] CLIA [id number] [address] [place] [address] [place] MCV (RBC) [Entitic vol] 84.4 fL Normal 80.0-100.0 [facility] Comment on above: Order Comment: Speci men Type: BLOOD SPECIMEN Ordering Facility: [facility] Address: [address] [place] [address] Performed By: #### 2 777-1, 67869-4, #### [facility] CLIA [id number] [address] [place] [address] [place] Nucleated RBC (Bld) [#/Vol] 10*3/uL Normal <0.01 [facility] Comment on above: Order Comment: Speci men Type: BLOOD SPECIMEN Ordering Facility: [facility] Address: [address] [place] [address] Performed By: #### 2 777-1, 86338-4, #### [facility] CLIA [id number] [address] [place] [address] [place] Platelet mean volume (Bld) [Entitic vol] 8.9 fL Low 9.0-12.7 [facility] Comment on above: Order Comment: Speci men Type: BLOOD SPECIMEN Ordering Facility: [facility] Address: [address] [place] [address] Performed By: #### 2 777-1, 62379-4, #### [facility] CLIA [id number] [address] [place] [address] [place] Platelets (Bld) [#/Vol] 244 10*3/uL Normal 150-400 [facility] Comment on above: Order Comment: Speci men Type: BLOOD SPECIMEN Ordering Facility: [facility] Address: [address] [place] [address] Performed By: #### 2 777-1, 51039-2, 52774-5 #### [facility] CLIA [id number] [address] [place] [address] [place] RBC (Bld) [#/Vol] 3.71 10*6/uL Low 4.20-6.00 [facility] Comment on above: Order Comment: Speci men Type: BLOOD SPECIMEN Ordering Facility: [facility] Address: [address] [place] [address] Performed By: #### 2 777-1, 77500-2, #### [facility] CLIA [id number] [address] [place] [address] [place] WBC (Bld) [#/Vol] 7.59 10*3/uL Normal 3.70-11.00 [facility] Comment on above: Order Comment: Speci men Type: BLOOD SPECIMEN Ordering Facility: [facility] Address: [address] [place] [address] Performed By: #### 2 777-1, 85764-3, #### [facility] CLIA [id number] [address] [place], [place] [address] [place] CONSULT PROGon 11-06-2023 CONSULT PROG HNO ID: [id number] Author: KIM BHAKTA MD Service: Neurology General [...] for now. Kim Bhakta MD Staff Neurologist [facility] Normal [facility] Magnesium SerPl-mCncon 11-05 Magnesium [Mass/Vol] 2.3 mg/dL Normal 1.7-2.3 [facility] Comment on above: Order Comment: Speci men Type: BLOOD SPECIMEN Ordering Facility: [facility] Address: [address] [place] [address] Performed By: #### 2 4321-2, 98721-6, 2777-1 #### [facility] CLIA [id number] [address] [place] [address] [place] [address] [place] Phosphate SerPl-mCncon 11-05 Phosphate [Mass/Vol] 4.1 mg/dL Normal 2.7-4.8 [facility] Comment on above: Order Comment: Speci men Type: BLOOD SPECIMEN Ordering Facility: [facility] Address: [address] [place] [address] Performed By: #### 2 4321-2, 43875-7, 2777-1 #### [facility] CLIA [id number] [address] [place] [address] [id number] [place] [address] [place] THERAPY NTon 11-06-2023 THERAPY NT HNO ID: [id number] Author: CHANTELL BELLA CCC-CAR EXAMINER Service: Speech/Swallow Author Type: Speech Language Pathologist Type: Therapy (PT/OT/Speech/Resp) Filed: 11/06/2023 10:28 Note Text: [facility] Speech Pathology - [facility] Bedside Swallow Evaluation SERVICE DATE: 11/06/2023 ROOM: [place] [address] IMPRESSIONS: Limited bedside swallowing evaluation as patient [...] assessment. PLAN: Page with concerns/questions. Chantell Bella CCC-CAR EXAMINER Pager # [phone] BRIEF DIAGNOSIS AND HISTORY per General Surgery [...] discussed with: MIRIAM adkins SIGNATURE: Chantell Bella CCC-CAR EXAMINER PATIENT NAME: Johnny Devine DATE: November 06, 2023 TIME: 10:12 AM PAGER: [phone] Normal [facility] Basic metabolic 2000 panelon 11-05-2023 Anion gap [Moles/Vol] 7 mmol/L Low -18 [facility] Comment on above: Order Comment: Speci men Type: BLOOD SPECIMEN Ordering Facility: [facility] Address: [address] [place] [address] Performed By: #### 5 7021-8 #### [facility] CLIA [id number] [address] [place] [address] [place] Calcium [Mass/Vol] 7.6 mg/dL Low 8.5-10.2 [facility] Comment on above: Order Comment: Speci men Type: BLOOD SPECIMEN Ordering Facility: [facility] Address: [address] [place] [address] Performed By: #### 5 7021-8 #### [facility] CLIA [id number] [address] [place] [address] [place] Chloride [Moles/Vol] 112 mmol/L High 97-105 [facility] Comment on above: Order Comment: Speci men Type: BLOOD SPECIMEN Ordering Facility: [facility] Address: [address] [place] [address] Performed By: #### 5 7021-8 #### [facility] [facility] CLIA [id number] [address] [place] [address] [place] CO2 [Moles/Vol] 23 mmol/L Normal 22-30 [facility] Comment on above: Order Comment: Speci men Type: BLOOD SPECIMEN Ordering Facility: [facility] Address: [address] [place] [address] Performed By: #### 5 7021-8 #### [facility] CLIA [id number] [address] [place] [address] [place] Creatinine [Mass/Vol] 0.64 mg/dL Low 0.73-1.22 [facility] Comment on above: Order Comment: Sana zuñiga Type: BLOOD SPECIMEN Ordering Facility: [facility] Address: [address] [place] [address] Performed By: #### 5 7021-8 #### [facility] CLIA [id number] [address] [place] [address] [place] Creatinine and Glomerular filtration rate.predicted panel (S/P/Bld) 130 mL/min/1.73m??? Normal >=60 [facility] Comment on above: Order Comment: Sana zuñiga Type: BLOOD SPECIMEN Ordering Facility: [facility] Address: [address] [place] [address] Result Comment: Lor mated Glomerular Filtration Rate [...] GFR. Performed By: #### 5 7021-8 #### [facility] CLIA [id number] [address] [place] [address] [place] Glucose [Mass/Vol] 96 mg/dL Normal 74-99 [facility] Comment on above: Order Comment: Sana zuñiga Type: BLOOD SPECIMEN Ordering Facility: [facility] Address: [address] [place] [address] Result Comment: The [place] [employer] (ADA) provides guidance for cutoff [...] Standards of Medical Care in Diabetes 2016, [place] [employer]. Diabetes Care. 2016.39(Suppl 1). Performed By: #### 5 7021-8 #### [facility] CLIA [id number] [address] [place] [address] [place] Potassium [Moles/Vol] 4.2 mmol/L Normal 3.7-5.1 [facility] Comment on above: Order Comment: Speci men Type: BLOOD SPECIMEN Ordering Facility: [facility] Address: [address] [place] [address] Performed By: #### 5 7021-8 #### [facility] CLIA [id number] [address] [place] [address] [place] Sodium [Moles/Vol] 142 mmol/L Normal 136-144 [facility] Comment on above: Order Comment: Speci men Type: BLOOD SPECIMEN Ordering Facility: [facility] Address: [address] [place] [address] Performed By: #### 5 7021-8 #### [facility] CLIA [id number] [address] [place] [address] [place] Urea nitrogen [Mass/Vol] 5 mg/dL Low 9-24 [facility] Comment on above: Order Comment: Speci men Type: BLOOD SPECIMEN Ordering Facility: [facility] Address: [address] [place] [address] Performed By: #### 5 7021-8 #### [facility] CLIA [id number] [address] [place] [address] [place] CBC panel Auto (Bld)on 11-04 Erythrocyte distribution width (RBC) [Ratio] 14.6 % Normal 11.5-15.0 [facility] Comment on above: Order Comment: Speci men Type: BLOOD SPECIMENOrdering Facility: [facility] Address: [address] [place] [address] Performed By: #### 5 8410-2 ####[facility] [id number] [place] [address] [place] Hematocrit (Bld) [Volume fraction] 30.8 % Low 39.0-51.0 [facility] Comment on above: Order Comment: Speci men Type: BLOOD SPECIMENOrdering Facility: [facility] Address: [address] [place] [address] Performed By: #### 5 8410-2 ####[facility] [id number] [place] [address] [place] Hemoglobin (Bld) [Mass/Vol] 9.7 g/dL Low 13.0-17.0 [facility] Comment on above: Order Comment: Speci men Type: BLOOD SPECIMENOrdering Facility: [facility] Address: [address] [place] [address] Performed By: #### 5 8410-2 ####[facility] [id number] [place] [address] [place] MCH (RBC) [Entitic mass] 26.5 pg Normal 26.0-34.0 [facility] Comment on above: Order Comment: Speci men Type: BLOOD SPECIMENOrdering Facility: [facility] Address: [address] [place] [address] Performed By: #### 5 8410-2 ####[facility] [id number] [place] [address] [place] MCHC (RBC) [Mass/Vol] 31.5 g/dL Normal 30.5-36.0 [facility] Comment on above: Order Comment: Speci men Type: BLOOD SPECIMENOrdering Facility: [facility] Address: [address] [place] [address] Performed By: #### 5 8410-2 ####[facility] [id number] [place] [address] [place] MCV (RBC) [Entitic vol] 84.2 fL Normal 80.0-100.0 [facility] Comment on above: Order Comment: Speci men Type: BLOOD SPECIMENOrdering Facility: [facility] Address: [address] [place] [address] Performed By: #### 5 8410-2 ####[facility] [id number] [place] [address] [place] Nucleated RBC (Bld) [#/Vol] 10*3/uL Normal <0.01 [facility] Comment on above: Order Comment: Speci men Type: BLOOD SPECIMENOrdering Facility: [facility] Address: [address] [place] [address] Performed By: #### 5 8410-2 ####[facility] [id number] [place] [address] [place] Platelet mean volume (Bld) [Entitic vol] 9.1 fL Normal 9.0-12.7 [facility] Comment on above: Order Comment: Speci men Type: BLOOD SPECIMENOrdering Facility: [facility] Address: [address] [place] [address] Performed By: #### 5 8410-2 ####[facility] [id number] [place] [address] [place] Platelets (Bld) [#/Vol] 205 10*3/uL Normal 150-400 [facility] Comment on above: Order Comment: Speci men Type: BLOOD SPECIMENOrdering Facility: [facility] Address: [address] [place] [address] Performed By: #### 5 8410-2 ####[facility] [id number] [place] [address] [place] RBC (Bld) [#/Vol] 3.66 10*6/uL Low 4.20-6.00 [facility] Comment on above: Order Comment: Speci men Type: BLOOD SPECIMENOrdering Facility: [facility] Address: [address] [place] [address] Performed By: #### 5 8410-2 ####[facility] [id number] [place] [id number] [place] WBC (Bld) [#/Vol] 7.54 10*3/uL Normal 3.70-11.00 [facility] Comment on above: Order Comment: Speci men Type: BLOOD SPECIMENOrdering Facility: [facility] Address: [address] [place] [address] Performed By: #### 5 8410-2 ####[facility] [id number] [place] [id number] [place] Magnesium SerPl-ncon 11-04 Magnesium [Mass/Vol] 2.0 mg/dL Normal 1.7-2.3 [facility] Comment on above: Order Comment: Speci men Type: BLOOD SPECIMEN Ordering Facility: [facility] Address: [address] [place] [address] Performed By: #### 5 7021-8 #### [facility] CLIA [id number] [address] [place] [address] [place] Phosphate SerPl-mCncon 11-04 Phosphate [Mass/Vol] 3.1 mg/dL Normal 2.7-4.8 [facility] Comment on above: Order Comment: Speci men Type: BLOOD SPECIMEN Ordering Facility: [facility] Address: [address] [place] [address] Performed By: #### 5 7021-8 #### [facility] CLIA [id number] [address] [place], [place] [address] [place] THERAPY NTon 11-05-2023 THERAPY NT HNO ID: [id number] Author: ANA LUISA MORALES, PT Service: ? Author Type: Physical Therapist Type: Therapy (PT/OT/Speech/Resp) Filed: 11/05/2023 15:46 Note Text: Physical Therapy Evaluation Summary SERVICE DATE: 11/05/2023 SERVICE TIME: 1459 to 1532 ROOM: [id number] 6 Clicks Score: 18 DISCHARGE RECOMMENDATIONS Home Recommended Discharge Disposition Comments: Anticipate patient will continue to progress in mobility. Anticipate return to nursing home as long as able to provide current [...] Patient Lives With: Other: See Comment Comments: shelter ( intermediate care ) Assistance Available: 24-Hour PRIOR FUNCTIONAL LEVEL Required Assistance Assistance Required With: Cleaning, Laundry, Meals, Safety, Self Care, Shopping, Transportation Patient non-verbal at baseline. Aunt (cate) present during session to obtain PLOF. Patient lives at nursing home. I with mobility. Can feed himself and bathe, but requires cueing to do so. Will communicate with yes/no head nods. Aunt reports he has OCD, and sometimes needs time to do things at his own pace. Unsure of current interests, but tends to like to put things together, laundry, [place]. SUBJECTIVE Pt non-verbal throughout session THERAPY DIAGNOSIS Reduced mobility-other, Abnormalities of gait and mobility-other TREATMENT INTERVENTIONS Evaluation, Therapeutic Activity (43356) Timed Code Treatment (minutes): 18 Skilled Treatment [...] Type: Stepping Bed To Chair Transfer Equipment: (LOSS PREVENTION SPECIALIST) frequent verbal cues Gait Contact Guard Assistance [...] November 05, 2023 TIME: 3:46 PM Normal [facility] Basic metabolic 2000 panelon 11-04-2023 Anion gap [Moles/Vol] 9 mmol/L Normal -18 [facility] Comment on above: Order Comment: Sana zuñiga Type: BLOOD SPECIMEN Ordering Facility: [facility] Address: [address] [place] [address] Performed By: #### 2 777-1, 31415-3, 99988-9 #### [facility] CLIA [id number] [address] [place] [address] [place] Calcium [Mass/Vol] 7.7 mg/dL Low 8.5-10.2 [facility] Comment on above: Order Comment: Akbari men Type: BLOOD SPECIMEN Ordering Facility: [facility] Address: [address] [place] [address] Performed By: #### 2 777-1, 91096-0, #### [facility] CLIA [id number] [address] [place] [address] [place] Chloride [Moles/Vol] 112 mmol/L High 97-105 [facility] Comment on above: Order Comment: Speci men Type: BLOOD SPECIMEN Ordering Facility: [facility] Address: [address] [place] [address] Performed By: #### 2 777-1, 13524-4, #### [facility] CLIA [id number] [address] [place] [address] [place] CO2 [Moles/Vol] 24 mmol/L Normal 22-30 [facility] Comment on above: Order Comment: Speci men Type: BLOOD SPECIMEN Ordering Facility: [facility] Address: [address] [place] [address] Performed By: #### 2 777-1, 21612-2, #### [facility] CLIA [id number] [address] [place] [address] [place] Creatinine [Mass/Vol] 0.70 mg/dL Low 0.73-1.22 [facility] Comment on above: Order Comment: Speci men Type: BLOOD SPECIMEN Ordering Facility: [facility] Address: [address] [place] [address] Performed By: #### 2 777-1, 68178-9, #### [facility] CLIA [id number] [address] [place] [address] [place] Creatinine and Glomerular filtration rate.predicted panel (S/P/Bld) 126 mL/min/1.73m??? Normal >=60 [facility] Comment on above: Order Comment: Speci men Type: BLOOD SPECIMEN Ordering Facility: [facility] Address: [address] [place] [address] Result Comment: Lor mated Glomerular Filtration Rate [...] actual GFR. Performed By: #### 2 777-1, 68392-8, #### [facility] CLIA [id number] [address] [place] [address] [place] Glucose [Mass/Vol] 79 mg/dL Normal 74-99 [facility] Comment on above: Order Comment: Sana zuñiga Type: BLOOD SPECIMEN Ordering Facility: [facility] Address: [address] [place] [address] Result Comment: The [place] [employer] (ADA) provides guidance for cutoff [...] Standards of Medical Care in Diabetes 2016, [place] [employer]. Diabetes Care. 2016.39(Suppl 1). Performed By: #### 2 777-1, 80140-0, #### [facility] CLIA [id number] [address] [place] [address] [place] Potassium [Moles/Vol] 3.6 mmol/L Low 3.7-5.1 [facility] Comment on above: Order Comment: Sana zuñiga Type: BLOOD SPECIMEN Ordering Facility: [facility] Address: [address] [place], [place] [address] Performed By: #### 2 777-1, 41979-3, #### [facility] CLIA [id number] [address] [place] [address] [place] Sodium [Moles/Vol] 145 mmol/L High 136-144 [facility] Comment on above: Order Comment: Speci men Type: BLOOD SPECIMEN Ordering Facility: [facility] Address: [address] [place] [address] Performed By: #### 2 777-1, 51541-0, #### [facility] CLIA [id number] [address] [place] [address] [place] Urea nitrogen [Mass/Vol] 4 mg/dL Low 9-24 [facility] Comment on above: Order Comment: Speci men Type: BLOOD SPECIMEN Ordering Facility: [facility] Address: [address] [place] [address] Performed By: #### 2 777-1, 83866-1, #### [facility] CLIA [id number] [address] [place] [address] [place] CBC panel Auto (Bld)on 11-03 Erythrocyte distribution width (RBC) [Ratio] 14.3 % Normal 11.5-15.0 [facility] Comment on above: Order Comment: Speci men Type: BLOOD SPECIMEN Ordering Facility: [facility] Address: [address] [place] [address] Performed By: #### 2 777-1, 78935-4, #### [facility] CLIA [id number] [address] [place] [address] [place] Hematocrit (Bld) [Volume fraction] 33.4 % Low 39.0-51.0 [facility] Comment on above: Order Comment: Speci men Type: BLOOD SPECIMEN Ordering Facility: [facility] Address: [address] [place] [address] Performed By: #### 2 777-1, 84202-3, #### [facility] CLIA [id number] [address] [place] [address] [place] Hemoglobin (Bld) [Mass/Vol] 10.5 g/dL Low 13.0-17.0 [facility] Comment on above: Order Comment: Speci men Type: BLOOD SPECIMEN Ordering Facility: [facility] Address: [address] [place] [address] Performed By: #### 2 777-1, 18888-5, #### [facility] CLIA [id number] [address] [place] [address] [place] MCH (RBC) [Entitic mass] 26.4 pg Normal 26.0-34.0 [facility] Comment on above: Order Comment: Speci men Type: BLOOD SPECIMEN Ordering Facility: [facility] Address: [address] [place] [address] Performed By: #### 2 777-1, 72931-6, #### [facility] CLIA [id number] [address] [place] [address] [place] MCHC (RBC) [Mass/Vol] 31.4 g/dL Normal 30.5-36.0 [facility] Comment on above: Order Comment: Speci men Type: BLOOD SPECIMEN Ordering Facility: [facility] Address: [address] [place] [address] Performed By: #### 2 777-1, 16417-9, #### [facility] CLIA [id number] [address] [place] [address] [place] MCV (RBC) [Entitic vol] 84.1 fL Normal 80.0-100.0 [facility] Comment on above: Order Comment: Speci men Type: BLOOD SPECIMEN Ordering Facility: [facility] Address: [address] [place] [address] Performed By: #### 2 777-1, 36654-1, #### [facility] CLIA [id number] [address] [place] [address] [place] Nucleated RBC (Bld) [#/Vol] 10*3/uL Normal <0.01 [facility] Comment on above: Order Comment: Speci men Type: BLOOD SPECIMEN Ordering Facility: [facility] Address: [address] [place] [address] Performed By: #### 2 777-1, 17571-3, #### [facility] CLIA [id number] [address] [place] [address] [place] Platelet mean volume (Bld) [Entitic vol] 8.9 fL Low 9.0-12.7 [facility] Comment on above: Order Comment: Speci men Type: BLOOD SPECIMEN Ordering Facility: [facility] Address: [address] [place] [address] Performed By: #### 2 777-1, 85882-6, #### [facility] CLIA [id number] [address] [place] [address] [place] Platelets (Bld) [#/Vol] 242 10*3/uL Normal 150-400 [facility] Comment on above: Order Comment: Speci men Type: BLOOD SPECIMEN Ordering Facility: [facility] Address: [address] [place] [address] Performed By: #### 2 777-1, 65936-7, #### [facility] CLIA [id number] [address] [place] [address] [place] RBC (Bld) [#/Vol] 3.97 10*6/uL Low 4.20-6.00 [facility] Comment on above: Order Comment: Speci men Type: BLOOD SPECIMEN Ordering Facility: [facility] Address: [address] [place] [address] Performed By: #### 2 777-1, 24577-4, #### [facility] CLIA [id number] [address] [place] [address] [place] WBC (Bld) [#/Vol] 9.36 10*3/uL Normal 3.70-11.00 [facility] Comment on above: Order Comment: Speci men Type: BLOOD SPECIMEN Ordering Facility: [facility] Address: [address] [place] [address] Performed By: #### 2 777-1, 47519-3, #### [facility] CLIA [id number] [address] [place] [address] [place] Magnesium SerPl-mCncon 11-03 Magnesium [Mass/Vol] 2.0 mg/dL Normal 1.7-2.3 [facility] Comment on above: Order Comment: Speci men Type: BLOOD SPECIMEN Ordering Facility: [facility] Address: [address] [place] [address] Performed By: #### 2 777-1, 32083-8, #### [facility] CLIA [id number] [address] [place] [address] [place] NUTRITIONon 11-04-2023 NUTRITION HNO ID: [id number] Author: SAURABH VAZQUEZ DTR Service: Nutrition Therapy Author Type: Network Director Type: Nutrition Filed: 11/04/2023 14:35 Note Text: NUTRITION THERAPY CERTIFIED SURGICAL FIRST ASSISTANT NOTE SERVICE DATE: 11/04/2023 SERVICE TIME: 1030 Visit Type: Length of Stay Evaluation Goals Met: Not Met Will monitor for diet advancement and nutritional needs as able. Plan of Care: Follow-Up: Tech Reassessment Nursing Admission Assessment Malnutrition [...] November 04, 2023 TIME: 2:25 PM Normal [facility] Phosphate SerPl-mCncon 11-03 Phosphate [Mass/Vol] 2.6 mg/dL Low 2.7-4.8 [facility] Comment on above: Order Comment: Sana zuñiga Type: BLOOD SPECIMEN Ordering Facility: [facility] Address: [address] [place] [address] Performed By: #### 2 777-1, 80539-3, 57041-4 #### [facility] CLIA [id number] [address] [place] [address] [place] Valproate Free SerPl-mCncon 11-04-2023 Valproate Free [Mass/Vol] 11.3 ug/mL Normal 4.0-30.0 [facility] Comment on above: Order Comment: Sana zuñiga Type: BLOOD SPECIMENOrdering Facility: [facility] Address: [address] [place] [address] Result Comment: Refe rence ranges and high/low indicator flags are provided as general guidelines only. The treating physician must determine appropriate target levels/dosing based on the specific clinical situation. This test was developed and its performance characteristics determined by [facility]'s Nilay JKaitlyn [facility] Pathology and Laboratory Medicine [place] (-[facility]). It has not been cleared or approved by the FDA. -[facility] is regulated under CLIA as qualified to perform high-complexity testing. This test is used for clinical purposes. It should not be regarded as investigational or for research. Performed By: #### 4 087-3 ####[facility] [id number] [place] [address] [place] Valproate SerPl-mCncon 11-03 Valproate [Mass/Vol] 49.2 ug/mL Low 50.0-100.0 [facility] Comment on above: Order Comment: Speci men Type: BLOOD SPECIMEN Ordering Facility: [facility] Address: [address] [place] [address] Result Comment: Refe rence ranges and high/low indicator flags are provided as general guidelines only. The treating physician must determine appropriate target levels/dosing based on the specific clinical situation. Performed By: #### 2 4321-2, 94985-6, 2777-1 #### [facility] CLIA [id number] [address] [place] [address] [place] Basic metabolic 2000 panelon 11-03-2023 Anion gap [Moles/Vol] 11 mmol/L Normal 9-18 [facility] Comment on above: Order Comment: Speci men Type: BLOOD SPECIMEN Ordering Facility: [facility] Address: [address] [place] [address] Performed By: #### 2 777-1, 76919-4, #### [facility] CLIA [id number] [address] [place] [address] [place] Calcium [Mass/Vol] 7.7 mg/dL Low 8.5-10.2 [facility] Comment on above: Order Comment: Speci men Type: BLOOD SPECIMEN Ordering Facility: [facility] Address: [address] [place] [address] Performed By: #### 2 777-1, 17089-2, 11449-7 #### [facility] CLIA [id number] [address] [place] [address] [place] Chloride [Moles/Vol] 112 mmol/L High 97-105 [facility] Comment on above: Order Comment: Speci men Type: BLOOD SPECIMEN Ordering Facility: [facility] Address: [address] [place] [address] Performed By: #### 2 777-1, 10173-6, #### [facility] CLIA [id number] [address] [place] [address] [place] CO2 [Moles/Vol] 22 mmol/L Normal 22-30 [facility] Comment on above: Order Comment: Speci men Type: BLOOD SPECIMEN Ordering Facility: [facility] Address: [address] [place] [address] Performed By: #### 2 777-1, 37764-9, #### [facility] CLIA [id number] [address] [place] [address] [place] Creatinine [Mass/Vol] 0.68 mg/dL Low 0.73-1.22 [facility] Comment on above: Order Comment: Speci men Type: BLOOD SPECIMEN Ordering Facility: [facility] Address: [address] [place] [address] Performed By: #### 2 777-1, , #### [facility] CLIA [id number] [address] [place] [address] [place] Creatinine and Glomerular filtration rate.predicted panel (S/P/Bld) 127 mL/min/1.73m??? Normal >=60 [facility] Comment on above: Order Comment: Speci men Type: BLOOD SPECIMEN Ordering Facility: [facility] Address: [address] [place] [address] Result Comment: Lor mated Glomerular Filtration Rate [...] actual GFR. Performed By: #### 2 777-1, 34702-7, #### [facility] CLIA [id number] [address] [place] [address] [place] Glucose [Mass/Vol] 85 mg/dL Normal 74-99 [facility] Comment on above: Order Comment: Speci men Type: BLOOD SPECIMEN Ordering Facility: [facility] Address: [address] [place] [address] Result Comment: The [place] Diabetes Association (ADA) provides guidance for cutoff [...] Standards of Medical Care in Diabetes 2016, [place] [employer]. Diabetes Care. 2016.39(Suppl 1). Performed By: #### 2 777-1, 19477-6, #### [facility] CLIA [id number] [address] [place] [address] [place] Potassium [Moles/Vol] 3.4 mmol/L Low 3.7-5.1 [facility] Comment on above: Order Comment: Akbari men Type: BLOOD SPECIMEN Ordering Facility: [facility] Address: [address] [place] [address] Performed By: #### 2 777-1, 43870-6, #### [facility] CLIA [id number] [address] [place] [address] [place] Sodium [Moles/Vol] 145 mmol/L High 136-144 [facility] Comment on above: Order Comment: Speci men Type: BLOOD SPECIMEN Ordering Facility: [facility] Address: [address] [place] [address] Performed By: #### 2 777-1, 68838-8, #### [facility] CLIA [id number] [address] [place] [address] [place] Urea nitrogen [Mass/Vol] 5 mg/dL Low 9-24 [facility] Comment on above: Order Comment: Speci men Type: BLOOD SPECIMEN Ordering Facility: [facility] Address: [address] [place] [address] Performed By: #### 2 777-1, 32934-2, 50646-8 #### [facility] CLIA [id number] [address] [place] [address] [place] CBC W Auto Differential pane l (Bld)on 11-03-2023 Basophils (Bld) [#/Vol] 10*3/uL Normal <0.11 [facility] Comment on above: Order Comment: Speci men Type: BLOOD SPECIMEN Ordering Facility: [facility] Address: [address] [place] [address] Performed By: #### 5 7021-8 #### [facility] CLIA [id number] [address] [place] [address] [place] Basophils/100 WBC (Bld) 0.3 % Normal [facility] Comment on above: Order Comment: Speci men Type: BLOOD SPECIMEN Ordering Facility: [facility] Address: [address] [place] [address] Performed By: #### 5 7021-8 #### [facility] CLIA [id number] [address] [place] [address] [place] Differential cell count method Nom (Bld) Auto Normal [facility] Comment on above: Order Comment: Speci men Type: BLOOD SPECIMEN Ordering Facility: [facility] Address: [address] [place] [address] Performed By: #### 5 7021-8 #### [facility] CLIA [id number] [address] [place] [address] [place] Eosinophils (Bld) [#/Vol] 0.25 10*3/uL Normal <0.46 [facility] Comment on above: Order Comment: Speci men Type: BLOOD SPECIMEN Ordering Facility: [facility] Address: [address] [place] [address] Performed By: #### 5 7021-8 #### [facility] CLIA [id number] [address] [place] [address] [place] Eosinophils/100 WBC (Bld) 3.1 % Normal [facility] Comment on above: Order Comment: Speci men Type: BLOOD SPECIMEN Ordering Facility: [facility] Address: [address] [place] [address] Performed By: #### 5 7021-8 #### [facility] CLIA [id number] [address] [place] [address] [place] Erythrocyte distribution width (RBC) [Ratio] 13.7 % Normal 11.5-15.0 [facility] Comment on above: Order Comment: Speci men Type: BLOOD SPECIMEN Ordering Facility: [facility] Address: [address] [place] [address] Performed By: #### 5 7021-8 #### [facility] CLIA [id number] [address] [place] [address] [place] Hematocrit (Bld) [Volume fraction] 29.9 % Low 39.0-51.0 [facility] Comment on above: Order Comment: Speci men Type: BLOOD SPECIMEN Ordering Facility: [facility] Address: [address] [place] [address] Performed By: #### 5 7021-8 #### [facility] CLIA [id number] [address] [place] [address] [place] Hemoglobin (Bld) [Mass/Vol] 9.4 g/dL Low 13.0-17.0 [facility] Comment on above: Order Comment: Speci men Type: BLOOD SPECIMEN Ordering Facility: [facility] Address: [address] [place] [address] Performed By: #### 5 7021-8 #### [facility] CLIA [id number] [address] [place] [address] [place] Immature granulocytes (Bld) [#/Vol] 0.11 10*3/uL High <0.10 [facility] Comment on above: Order Comment: Speci men Type: BLOOD SPECIMEN Ordering Facility: [facility] Address: [address] [place] [address] Performed By: #### 5 7021-8 #### [facility] CLIA [id number] [address] [place] [address] [place] Immature granulocytes/100 WBC (Bld) 1.4 % Normal [facility] Comment on above: Order Comment: Speci men Type: BLOOD SPECIMEN Ordering Facility: [facility] Address: [address] [place] [address] Performed By: #### 5 7021-8 #### [facility] CLIA [id number] [address] [place] [address] [place] Lymphocytes (Bld) [#/Vol] 2.03 10*3/uL Normal 1.00-4.00 [facility] Comment on above: Order Comment: Speci men Type: BLOOD SPECIMEN Ordering Facility: [facility] Address: [address] [place] [address] Performed By: #### 5 7021-8 #### [facility] CLIA [id number] [address] [place] [address] [place] Lymphocytes/100 WBC (Bld) 25.4 % Normal [facility] Comment on above: Order Comment: Speci men Type: BLOOD SPECIMEN Ordering Facility: [facility] Address: [address] [place] [address] Performed By: #### 5 7021-8 #### [facility] CLIA [id number] [address] [place] [address] [place] MCH (RBC) [Entitic mass] 26.5 pg Normal 26.0-34.0 [facility] Comment on above: Order Comment: Speci men Type: BLOOD SPECIMEN Ordering Facility: [facility] Address: [address] [place] [address] Performed By: #### 5 7021-8 #### [facility] CLIA [id number] [address] [place] [address] [place] MCHC (RBC) [Mass/Vol] 31.4 g/dL Normal 30.5-36.0 [facility] Comment on above: Order Comment: Speci men Type: BLOOD SPECIMEN Ordering Facility: [facility] Address: [address] [place] [address] Performed By: #### 5 7021-8 #### [facility] CLIA [id number] [address] [place] [address] [place] MCV (RBC) [Entitic vol] 84.2 fL Normal 80.0-100.0 [facility] Comment on above: Order Comment: Speci men Type: BLOOD SPECIMEN Ordering Facility: [facility] Address: [address] [place] [address] Performed By: #### 5 7021-8 #### [facility] CLIA [id number] [address] [place] [address] [place] Monocytes (Bld) [#/Vol] 0.62 10*3/uL Normal <0.87 [facility] Comment on above: Order Comment: Speci men Type: BLOOD SPECIMEN Ordering Facility: [facility] Address: [address] [place] [address] Performed By: #### 5 7021-8 #### [facility] CLIA [id number] [address] [place] [address] [place] Monocytes/100 WBC (Bld) 7.8 % Normal [facility] Comment on above: Order Comment: Speci men Type: BLOOD SPECIMEN Ordering Facility: [facility] Address: [address] [place] [address] Performed By: #### 5 7021-8 #### [facility] CLIA [id number] [address] [place] [address] [place] Neutrophils (Bld) [#/Vol] 4.96 10*3/uL Normal 1.45-7.50 [facility] Comment on above: Order Comment: Speci men Type: BLOOD SPECIMEN Ordering Facility: [facility] Address: [address] [place] [address] Performed By: #### 5 7021-8 #### [facility] CLIA [id number] [address] [place] [address] [place] Neutrophils/100 WBC (Bld) 62.0 % Normal [facility] Comment on above: Order Comment: Speci men Type: BLOOD SPECIMEN Ordering Facility: [facility] Address: [address] [place] [address] Performed By: #### 5 7021-8 #### [facility] CLIA [id number] [address] [place] [address] [place] Nucleated RBC (Bld) [#/Vol] 10*3/uL Normal <0.01 [facility] Comment on above: Order Comment: Speci men Type: BLOOD SPECIMEN Ordering Facility: [facility] Address: [address] [place] [address] Performed By: #### 5 7021-8 #### [facility] CLIA [id number] [address] [place] [address] [place] Nucleated RBC/100 WBC (Bld) [Ratio] 0.0 /100 WBC Normal [facility] Comment on above: Order Comment: Speci men Type: BLOOD SPECIMEN Ordering Facility: [facility] Address: [address] [place] [address] Performed By: #### 5 7021-8 #### [facility] CLIA [id number] [address] [place] [address] [place] Platelet mean volume (Bld) [Entitic vol] 9.3 fL Normal 9.0-12.7 [facility] Comment on above: Order Comment: Speci men Type: BLOOD SPECIMEN Ordering Facility: [facility] Address: [address] [place] [address] Performed By: #### 5 7021-8 #### [facility] CLIA [id number] [address] [place] [address] [place] Platelets (Bld) [#/Vol] 208 10*3/uL Normal 150-400 [facility] Comment on above: Order Comment: Speci men Type: BLOOD SPECIMEN Ordering Facility: [facility] Address: [address] [place] [address] Performed By: #### 5 7021-8 #### [facility] CLIA [id number] [address] [place] [address] [place] RBC (Bld) [#/Vol] 3.55 10*6/uL Low 4.20-6.00 [facility] Comment on above: Order Comment: Speci men Type: BLOOD SPECIMEN Ordering Facility: [facility] Address: [address] [place] [address] Performed By: #### 5 7021-8 #### [facility] CLIA [id number] [address] [place] [address] [place] WBC (Bld) [#/Vol] 7.99 10*3/uL Normal 3.70-11.00 [facility] Comment on above: Order Comment: Speci men Type: BLOOD SPECIMEN Ordering Facility: [facility] Address: [address] [place] [address] Performed By: #### 5 7021-8 #### [facility] CLIA [id number] [address] [place] [address] [place] CONSULTon 11-03-2023 CONSULT HNO ID: [id number] Author: CK HU MD Service: Neurology General [...] SERVICE TIME: 9:18 AM Team Requesting Consult: surg Current Attending Provider: Samuel Robin* Neurology was [...] is brother, Delbert. Patient lives in a nursing home at baseline. Per information written on board [...] (DULCOLAX) 10 mg RECTAL DAILY phenol 1 [place] (CHLORASEPTIC) 1 [place] MUCOUS MEMBRANE (TOPICAL MOUTH AND THROAT) q 2 H PRN Or benzocaine-menthol 1 Lozenge (CHLORASEPTIC) 1 Lozenge MUCOUS MEMBRANE (TOPICAL MOUTH AND THROAT) q 2 H PRN clomiPRAMINE 75 mg cap(s) (ANAFRANIL) 75 mg ORAL AT BEDTIME lithium carbonate 300 mg cap(s) (ESKALITH) 300 mg ORAL BID sertraline (ZOLOFT (more content not included)... Normal [facility] CT BRAIN WO IVCONon 11-03-[address] BRAIN WO IVCON * * *Final Report* * * DATE OF EXAM: Nov 03 2023 7:42PM [facility] [place] BRAIN WO IVCON / [...] reduction techniques were required COMPARISON: None. RESULT: Flake Miller Helper (topogram) images: No additional findings. Post-operative change: [...] No clear evidence of an acute abnormality. [employer]: PSCB Transcribe Date/Time: Nov 03 2023 7:43P Dictated by : HERMAN DOWD MD This examination was interpreted and the report reviewed and electronically signed by: HERMAN DOWD MD on Nov 03 2023 7:44PM EST [id number] Normal [facility] [place], Bld SerPl-sCncon [place] [Moles/Vol] 0.5 mmol/L Low 0.6-1.2 [facility] Comment on above: Order Comment: Specdeshawn zuñiga Type: BLOOD SPECIMEN Ordering Facility: [facility] Address: [address] [place] [address] Result Comment: Refe rence ranges and high/low indicator flags are provided as general guidelines only. The treating physician must determine appropriate target levels/dosing based on the specific clinical situation. Performed By: #### 1 4334-7, 4086-5 #### [facility] CLIA [id number] [address] [place], [place] [address]K [id number] [place] [address] [place] Magnesium SerPl-mCncon 11-02 Magnesium [Mass/Vol] 2.2 mg/dL Normal 1.7-2.3 [facility] Comment on above: Order Comment: Sana zuñiga Type: BLOOD SPECIMEN Ordering Facility: [facility] Address: [address] [place] [address] Performed By: #### 2 777-1, 34564-1, #### [facility] CLIA [id number] [address] [place] [address] [facility] Phosphate SerPl-mCncon 11-02 Phosphate [Mass/Vol] 2.5 mg/dL Low 2.7-4.8 [facility] Comment on above: Order Comment: Speci men Type: BLOOD SPECIMEN Ordering Facility: [facility] Address: [address] [place] [address] Performed By: #### 2 777-1, 92613-5, #### [facility] CLIA [id number] [address] [place] [address] [place] THERAPY NTon 11-03-2023 THERAPY NT HNO ID: [id number] Author: ANKITA BLACKBURN PT, DPT Service: Physical Therapy Author Type: Physical Therapist Type: Therapy (PT/OT/Speech/Resp) Filed: 11/03/2023 13:48 Note Text: PHYSICAL THERAPY MISSED VISIT SERVICE DATE: 11/03/2023 SERVICE TIME: 1347 ROOM: [place] [id number] Patient not seen due to Patient Not Available. Another service at bedside upon time of arrival x2 attempts. Will follow up as able/appropriate. SIGNATURE: Ankita Blackburn PT, DPT PATIENT NAME: Johnny Devine DATE: November 03, 2023 TIME: 1:48 PM Normal [facility] Valproate SerPl-ncon 11-02 Valproate [Mass/Vol] 53.0 ug/mL Normal 50.0-100.0 [facility] Comment on above: Order Comment: Speci men Type: BLOOD SPECIMEN Ordering Facility: [facility] Address: [address] [place] [address] Result Comment: Refe rence ranges and high/low indicator flags are provided as general guidelines only. The treating physician must determine appropriate target levels/dosing based on the specific clinical situation. Performed By: #### 1 4334-7, 4086-5 #### [facility] CLIA [id number] [address] [place] [address] [place] Basic metabolic 2000 panelon 11-02-2023 Anion gap [Moles/Vol] 8 mmol/L Low 9-18 [facility] Comment on above: Order Comment: Speci men Type: BLOOD SPECIMEN Ordering Facility: [facility] Address: [address] [place] [address] Performed By: #### 2 777-1, 43147-3, #### [facility] CLIA [id number] [address] [place] [address] [place] Calcium [Mass/Vol] 7.7 mg/dL Low 8.5-10.2 [facility] Comment on above: Order Comment: Speci men Type: BLOOD SPECIMEN Ordering Facility: [facility] Address: [address] [place] [address] Performed By: #### 2 777-1, 25026-1, #### [facility] CLIA [id number] [address] [place] [address] [place] Chloride [Moles/Vol] 109 mmol/L High 97-105 [facility] Comment on above: Order Comment: Speci men Type: BLOOD SPECIMEN Ordering Facility: [facility] Address: [address] [place] [address] Performed By: #### 2 777-1, 67247-5, #### [facility] CLIA [id number] [address] [place] [address] [place] CO2 [Moles/Vol] 24 mmol/L Normal 22-30 [facility] Comment on above: Order Comment: Speci men Type: BLOOD SPECIMEN Ordering Facility: [facility] Address: [address] [place] [address] Performed By: #### 2 777-1, 10799-1, #### [facility] CLIA [id number] [address] [place] [address] [place] Creatinine [Mass/Vol] 0.66 mg/dL Low 0.73-1.22 [facility] Comment on above: Order Comment: Sana zuñiga Type: BLOOD SPECIMEN Ordering Facility: [facility] Address: [address] [place] [address] Performed By: #### 2 777-1, 24587-5, #### [facility] CLIA [id number] [address] [place] [address] [place] Creatinine and Glomerular filtration rate.predicted panel (S/P/Bld) 129 mL/min/1.73m??? Normal >=60 [facility] Comment on above: Order Comment: Sana zuñiga Type: BLOOD SPECIMEN Ordering Facility: [facility] Address: [address] [place] [address] Result Comment: Lor mated Glomerular Filtration Rate [...] actual GFR. Performed By: #### 2 777-1, 88470-1, #### [facility] CLIA [id number] [address] [place] [address] [place] Glucose [Mass/Vol] 109 mg/dL High 74-99 [facility] Comment on above: Order Comment: Sana zuñiga Type: BLOOD SPECIMEN Ordering Facility: [facility] Address: [address] [place] [address] Result Comment: The [place] [employer] (ADA) provides guidance for cutoff [...] Standards of Medical Care in Diabetes 2016, [place] [employer]. Diabetes Care. 2016.39(Suppl 1). Performed By: #### 2 777-1, 04679-9, #### [facility] CLIA [id number] [address] [place] [address] [place] Potassium [Moles/Vol] 3.5 mmol/L Low 3.7-5.1 [facility] Comment on above: Order Comment: Speci men Type: BLOOD SPECIMEN Ordering Facility: [facility] Address: [address] [place] [address] Performed By: #### 2 777-1, , #### [facility] CLIA [id number] [address] [place] [address] [place] Sodium [Moles/Vol] 141 mmol/L Normal 136-144 [facility] Comment on above: Order Comment: Speci men Type: BLOOD SPECIMEN Ordering Facility: [facility] Address: [address] [place] [address] Performed By: #### 2 777-1, , #### [facility] CLIA [id number] [address] [place] [address] [place] Urea nitrogen [Mass/Vol] 7 mg/dL Low 9-24 [facility] Comment on above: Order Comment: Speci men Type: BLOOD SPECIMEN Ordering Facility: [facility] Address: [address] [place] [address] Performed By: #### 2 777-1, , #### [facility] CLIA [id number] [address] [place] [address] [place] CBC W Auto Differential pane l (Bld)on 11-02-2023 Basophils (Bld) [#/Vol] 0.04 10*3/uL Normal <0.11 [facility] Comment on above: Order Comment: Speci men Type: BLOOD SPECIMEN Ordering Facility: [facility] Address: [address] [place] [address] Performed By: #### 2 4321-2, , 2776-08 #### [facility] CLIA [id number] [address] [place] [address] [place] Basophils/100 WBC (Bld) 0.5 % Normal [facility] Comment on above: Order Comment: Speci men Type: BLOOD SPECIMEN Ordering Facility: [facility] Address: [address] [place] [address] Performed By: #### 2 4321-2, , 2776-08 #### [facility] CLIA [id number] [address] [place] [address] [place] Differential cell count method Nom (Bld) Auto Normal [facility] Comment on above: Order Comment: Speci men Type: BLOOD SPECIMEN Ordering Facility: [facility] Address: [address] [place] [address] Performed By: #### 2 432-2, , 2776-08 #### [facility] CLIA [id number] [address] [place] [address] [place] Eosinophils (Bld) [#/Vol] 0.24 10*3/uL Normal <0.46 [facility] Comment on above: Order Comment: Speci men Type: BLOOD SPECIMEN Ordering Facility: [facility] Address: [address] [place] [address] Performed By: #### 2 432-2, , 2776-08 #### [facility] CLIA [id number] [address] [place] [address] [place] Eosinophils/100 WBC (Bld) 3.0 % Normal [facility] Comment on above: Order Comment: Speci men Type: BLOOD SPECIMEN Ordering Facility: [facility] Address: [address] [place] [address] Performed By: #### 2 4321-2, , 2776-08 #### [facility] CLIA [id number] [address] [place] [address] [place] Erythrocyte distribution width (RBC) [Ratio] 14.0 % Normal 11.5-15.0 [facility] Comment on above: Order Comment: Speci men Type: BLOOD SPECIMEN Ordering Facility: [facility] Address: [address] [place] [address] Performed By: #### 2 4321-2, , 2776-08 #### [facility] CLIA [id number] [address] [place] [address] [place] Hematocrit (Bld) [Volume fraction] 36.5 % Low 39.0-51.0 [facility] Comment on above: Order Comment: Speci men Type: BLOOD SPECIMEN Ordering Facility: [facility] Address: [address] [place] [address] Performed By: #### 2 4321-2, , 2776-08 #### [facility] CLIA [id number] [address] [place] [address] [place] Hemoglobin (Bld) [Mass/Vol] 11.2 g/dL Low 13.0-17.0 [facility] Comment on above: Order Comment: Speci men Type: BLOOD SPECIMEN Ordering Facility: [facility] Address: [address] [place] [address] Performed By: #### 2 4321-2, , 2776-08 #### [facility] CLIA [id number] [address] [place] [address] [place] Immature granulocytes (Bld) [#/Vol] 0.10 10*3/uL High <0.10 [facility] Comment on above: Order Comment: Speci men Type: BLOOD SPECIMEN Ordering Facility: [facility] Address: [address] [place] [address] Performed By: #### 2 4321-2, 55138-1, 2776-08 #### [facility] CLIA [id number] [address] [place] [address] [place] Immature granulocytes/100 WBC (Bld) 1.3 % Normal [facility] Comment on above: Order Comment: Speci men Type: BLOOD SPECIMEN Ordering Facility: [facility] Address: [address] [place] [address] Performed By: #### 2 4321-2, , 2776-08 #### [facility] CLIA [id number] [address] [place] [address] [place] Lymphocytes (Bld) [#/Vol] 1.78 10*3/uL Normal 1.00-4.00 [facility] Comment on above: Order Comment: Speci men Type: BLOOD SPECIMEN Ordering Facility: [facility] Address: [address] [place] [address] Performed By: #### 2 4321-2, , 2776-08 #### [facility] CLIA [id number] [address] [place] [address] [place] Lymphocytes/100 WBC (Bld) 22.3 % Normal [facility] Comment on above: Order Comment: Speci men Type: BLOOD SPECIMEN Ordering Facility: [facility] Address: [address] [place] [address] Performed By: #### 2 4321-2, , 2776-08 #### [facility] CLIA [id number] [address] [place] [address] [place] MCH (RBC) [Entitic mass] 26.2 pg Normal 26.0-34.0 [facility] Comment on above: Order Comment: Speci men Type: BLOOD SPECIMEN Ordering Facility: [facility] Address: [address] [place] [address] Performed By: #### 2 4321-2, , 2776-08 #### [facility] CLIA [id number] [address] [place] [address] [place] MCHC (RBC) [Mass/Vol] 30.7 g/dL Normal 30.5-36.0 [facility] Comment on above: Order Comment: Speci men Type: BLOOD SPECIMEN Ordering Facility: [facility] Address: [address] [place] [address] Performed By: #### 2 4321-2, , 2776-08 #### [facility] CLIA [id number] [address] [place] [address] [place] MCV (RBC) [Entitic vol] 85.5 fL Normal 80.0-100.0 [facility] Comment on above: Order Comment: Speci men Type: BLOOD SPECIMEN Ordering Facility: [facility] Address: [address] [place] [address] Performed By: #### 2 4321-2, , 2776-08 #### [facility] CLIA [id number] [address] [place] [address] [place] Monocytes (Bld) [#/Vol] 0.58 10*3/uL Normal <0.87 [facility] Comment on above: Order Comment: Speci men Type: BLOOD SPECIMEN Ordering Facility: [facility] Address: [address] [place] [address] Performed By: #### 2 4321-2, , 2776-08 #### [facility] CLIA [id number] [address] [place] [address] [place] Monocytes/100 WBC (Bld) 7.3 % Normal [facility] Comment on above: Order Comment: Speci men Type: BLOOD SPECIMEN Ordering Facility: [facility] Address: [address] [place] [address] Performed By: #### 2 4321-2, , 2776-08 #### [facility] CLIA [id number] [address] [place] [address] [place] Neutrophils (Bld) [#/Vol] 5.24 10*3/uL Normal 1.45-7.50 [facility] Comment on above: Order Comment: Speci men Type: BLOOD SPECIMEN Ordering Facility: [facility] Address: [address] [place] [address] Performed By: #### 2 4321-2, , 2776-08 #### [facility] CLIA [id number] [address] [place] [address] [place] Neutrophils/100 WBC (Bld) 65.6 % Normal [facility] Comment on above: Order Comment: Speci men Type: BLOOD SPECIMEN Ordering Facility: [facility] Address: [address] [place] [address] Performed By: #### 2 432-2, , 2776-08 #### [facility] CLIA [id number] [address] [place] [address] [place] Nucleated RBC (Bld) [#/Vol] 10*3/uL Normal <0.01 [facility] Comment on above: Order Comment: Speci men Type: BLOOD SPECIMEN Ordering Facility: [facility] Address: [address] [place] [address] Performed By: #### 2 4321-2, , 2776-08 #### [facility] CLIA [id number] [address] [place] [address] [place] Nucleated RBC/100 WBC (Bld) [Ratio] 0.0 /100 WBC Normal [facility] Comment on above: Order Comment: Speci men Type: BLOOD SPECIMEN Ordering Facility: [facility] Address: [address] [place] [address] Performed By: #### 2 4321-2, , 2776-08 #### [facility] CLIA [id number] [address] [place] [address] [place] Platelet mean volume (Bld) [Entitic vol] 9.7 fL Normal 9.0-12.7 [facility] Comment on above: Order Comment: Speci men Type: BLOOD SPECIMEN Ordering Facility: [facility] Address: [address] [place] [address] Performed By: #### 2 4321-2, , 2776-08 #### [facility] CLIA [id number] [address] [place] [address] [place] Platelets (Bld) [#/Vol] 199 10*3/uL Normal 150-400 [facility] Comment on above: Order Comment: Speci men Type: BLOOD SPECIMEN Ordering Facility: [facility] Address: [address] [place] [address] Performed By: #### 2 4321-2, , 2776-08 #### [facility] CLIA [id number] [address] [place] [address] [place] RBC (Bld) [#/Vol] 4.27 10*6/uL Normal 4.20-6.00 [facility] Comment on above: Order Comment: Speci men Type: BLOOD SPECIMEN Ordering Facility: [facility] Address: [address] [place] [address] Performed By: #### 2 4321-2, , 27702-17 #### [facility] CLIA [id number] [address] [place] [address] [place] WBC (Bld) [#/Vol] 7.98 10*3/uL Normal 3.70-11.00 [facility] Comment on above: Order Comment: Speci men Type: BLOOD SPECIMEN Ordering Facility: [facility] Address: [address] [place] [address] Performed By: #### 2 4321-2, , 27702-17 #### [facility] CLIA [id number] [address] [place] [address] [place] Magnesium SerPl-mCncon 11-01 Magnesium [Mass/Vol] 2.3 mg/dL Normal 1.7-2.3 [facility] Comment on above: Order Comment: Speci men Type: BLOOD SPECIMEN Ordering Facility: [facility] Address: [address] [place] [address] Performed By: #### 2 777-1, 96956-5, #### [facility] CLIA [id number] [address] [place] [address] [place] Phosphate SerPl-mCncon 11-01 Phosphate [Mass/Vol] 2.6 mg/dL Low 2.7-4.8 [facility] Comment on above: Order Comment: Speci men Type: BLOOD SPECIMEN Ordering Facility: [facility] Address: [address] [place] [address] Performed By: #### 2 777-1, 18167-5, #### [facility] CLIA [id number] [address] [place] [address] [place] XR ABDOMEN 1V SPECIFYon [...] small bowel. Findings suggestive of improving ileus. [employer]: SUSI Transcribe Date/Time: Nov 02 2023 11:50A Dictated by : VERONICA CARTER MD This examination was interpreted and the report reviewed and electronically signed by: VERONICA CARTER MD on Nov 02 2023 11:52AM EST [id number] Normal [facility] Basic metabolic 2000 panelon 11-01-2023 Anion gap [Moles/Vol] 10 mmol/L Normal 9-18 [facility] Comment on above: Order Comment: Speci men Type: BLOOD SPECIMEN Ordering Facility: [facility] Address: [address] [place] [address] Performed By: #### 5 7021-8 #### [facility] CLIA [id number] [address] [place] [address] [place] Calcium [Mass/Vol] 7.9 mg/dL Low 8.5-10.2 [facility] Comment on above: Order Comment: Speci men Type: BLOOD SPECIMEN Ordering Facility: [facility] Address: [address] [place] [address] Performed By: #### 5 7021-8 #### [facility] CLIA [id number] [address] [place] [address] [place] Chloride [Moles/Vol] 114 mmol/L High 97-105 [facility] Comment on above: Order Comment: Speci men Type: BLOOD SPECIMEN Ordering Facility: [facility] Address: [address] [place] [address] Performed By: #### 5 7021-8 #### [facility] CLIA [id number] [address] [place] [address] [place] CO2 [Moles/Vol] 22 mmol/L Normal 22-30 [facility] Comment on above: Order Comment: Speci men Type: BLOOD SPECIMEN Ordering Facility: [facility] Address: [address] [place] [address] Performed By: #### 5 7021-8 #### [facility] CLIA [id number] [address] [place] [address] [place] Creatinine [Mass/Vol] 0.74 mg/dL Normal 0.73-1.22 [facility] Comment on above: Order Comment: Sana zuñiga Type: BLOOD SPECIMEN Ordering Facility: [facility] Address: [address] [place] [address] Performed By: #### 5 7021-8 #### [facility] CLIA [id number] [address] [place] [address] [place] Creatinine and Glomerular filtration rate.predicted panel (S/P/Bld) 124 mL/min/1.73m??? Normal >=60 [facility] Comment on above: Order Comment: Sana zuñiga Type: BLOOD SPECIMEN Ordering Facility: [facility] Address: [address] [place] [address] Result Comment: Lor mated Glomerular Filtration Rate [...] GFR. Performed By: #### 5 7021-8 #### [facility] CLIA [id number] [address] [place] [address] [place] Glucose [Mass/Vol] 98 mg/dL Normal 74-99 [facility] Comment on above: Order Comment: Sana zuñiga Type: BLOOD SPECIMEN Ordering Facility: [facility] Address: [address] [place] [address] Result Comment: The [place] [employer] (ADA) provides guidance for cutoff [...] Standards of Medical Care in Diabetes 2016, [place] [employer]. Diabetes Care. 2016.39(Suppl 1). Performed By: #### 5 7021-8 #### [facility] CLIA [id number] [address] [place] [address] [place] Potassium [Moles/Vol] 3.9 mmol/L Normal 3.7-5.1 [facility] Comment on above: Order Comment: Speci men Type: BLOOD SPECIMEN Ordering Facility: [facility] Address: [address] [place] [address] Performed By: #### 5 7021-8 #### [facility] CLIA [id number] [address] [place] [address] [place] Sodium [Moles/Vol] 146 mmol/L High 136-144 [facility] Comment on above: Order Comment: Speci men Type: BLOOD SPECIMEN Ordering Facility: [facility] Address: [address] [place] [address] Performed By: #### 5 7021-8 #### [facility] CLIA [id number] [address] [place] [address] [place] Urea nitrogen [Mass/Vol] 9 mg/dL Normal 9-24 [facility] Comment on above: Order Comment: Speci men Type: BLOOD SPECIMEN Ordering Facility: [facility] Address: [address] [place] [address] Performed By: #### 5 7021-8 #### [facility] CLIA [id number] [address] [place] [address] [place] CBC W Auto Differential pane l (Bld)on 11-01-2023 Basophils (Bld) [#/Vol] 10*3/uL Normal <0.11 [facility] Comment on above: Order Comment: Speci men Type: BLOOD SPECIMENOrdering Facility: [facility] Address: [address] [place] [address] Performed By: #### 5 7021-8 ####[facility] [id number] [place] [address] [place] Basophils/100 WBC (Bld) 0.3 % Normal [facility] Comment on above: Order Comment: Speci men Type: BLOOD SPECIMENOrdering Facility: [facility] Address: [address] [place] [address] Performed By: #### 5 7021-8 ####[facility] [id number] [place] [address] [place] Differential cell count method Nom (Bld) Auto Normal [facility] Comment on above: Order Comment: Speci men Type: BLOOD SPECIMENOrdering Facility: [facility] Address: [address] [place] [address] Performed By: #### 5 7021-8 ####[facility] [id number] [place] [address] [place] Eosinophils (Bld) [#/Vol] 0.23 10*3/uL Normal <0.46 [facility] Comment on above: Order Comment: Speci men Type: BLOOD SPECIMENOrdering Facility: [facility] Address: [address] [place] [address] Performed By: #### 5 7021-8 ####[facility] [id number] [place] [address] [place] Eosinophils/100 WBC (Bld) 3.0 % Normal [facility] Comment on above: Order Comment: Speci men Type: BLOOD SPECIMENOrdering Facility: [facility] Address: [address] [place] [address] Performed By: #### 5 7021-8 ####[facility] [id number] [place] [address] [place] Erythrocyte distribution width (RBC) [Ratio] 14.6 % Normal 11.5-15.0 [facility] Comment on above: Order Comment: Speci men Type: BLOOD SPECIMENOrdering Facility: [facility] Address: [address] [place] [address] Performed By: #### 5 7021-8 ####[facility] [id number] [place] [address] [place] Hematocrit (Bld) [Volume fraction] 28.6 % Low 39.0-51.0 [facility] Comment on above: Order Comment: Speci men Type: BLOOD SPECIMENOrdering Facility: [facility] Address: [address] [place] [address] Performed By: #### 5 7021-8 ####[facility] [id number] [place] [address] [place] Hemoglobin (Bld) [Mass/Vol] 9.0 g/dL Low 13.0-17.0 [facility] Comment on above: Order Comment: Speci men Type: BLOOD SPECIMENOrdering Facility: [facility] Address: [address] [place] [address] Performed By: #### 5 7021-8 ####[facility] [id number] [place] [address] [place] Immature granulocytes (Bld) [#/Vol] 0.05 10*3/uL Normal <0.10 [facility] Comment on above: Order Comment: Speci men Type: BLOOD SPECIMENOrdering Facility: [facility] Address: [address] [place] [address] Performed By: #### 5 7021-8 ####[facility] [id number] [place] [address] [place] Immature granulocytes/100 WBC (Bld) 0.7 % Normal [facility] Comment on above: Order Comment: Speci men Type: BLOOD SPECIMENOrdering Facility: [facility] Address: [address] [place] [address] Performed By: #### 5 7021-8 ####[facility] [id number] [place] [address] [place] Lymphocytes (Bld) [#/Vol] 1.86 10*3/uL Normal 1.00-4.00 [facility] Comment on above: Order Comment: Speci men Type: BLOOD SPECIMENOrdering Facility: [facility] Address: [address] [place] [address] Performed By: #### 5 7021-8 ####[facility] [id number] [place] [address] [place] Lymphocytes/100 WBC (Bld) 24.3 % Normal [facility] Comment on above: Order Comment: Speci men Type: BLOOD SPECIMENOrdering Facility: [facility] Address: [address] [place] [address] Performed By: #### 5 7021-8 ####[facility] [id number] [place] [address] [place] MCH (RBC) [Entitic mass] 26.8 pg Normal 26.0-34.0 [facility] Comment on above: Order Comment: Speci men Type: BLOOD SPECIMENOrdering Facility: [facility] Address: [address] [place] [address] Performed By: #### 5 7021-8 ####[facility] [id number] [place] [address] [place] MCHC (RBC) [Mass/Vol] 31.5 g/dL Normal 30.5-36.0 [facility] Comment on above: Order Comment: Speci men Type: BLOOD SPECIMENOrdering Facility: [facility] Address: [address] [place] [address] Performed By: #### 5 7021-8 ####[facility] [id number] [place] [address] [place] MCV (RBC) [Entitic vol] 85.1 fL Normal 80.0-100.0 [facility] Comment on above: Order Comment: Speci men Type: BLOOD SPECIMENOrdering Facility: [facility] Address: [address] [place] [address] Performed By: #### 5 7021-8 ####[facility] [id number] [place] [address] [place] Monocytes (Bld) [#/Vol] 0.62 10*3/uL Normal <0.87 [facility] Comment on above: Order Comment: Speci men Type: BLOOD SPECIMENOrdering Facility: [facility] Address: [address] [place] [address] Performed By: #### 5 7021-8 ####[facility] [id number] [place] [address] [place] Monocytes/100 WBC (Bld) 8.1 % Normal [facility] Comment on above: Order Comment: Speci men Type: BLOOD SPECIMENOrdering Facility: [facility] Address: [address] [place] [address] Performed By: #### 5 7021-8 ####[facility] [id number] [place] [address] [place] Neutrophils (Bld) [#/Vol] 4.87 10*3/uL Normal 1.45-7.50 [facility] Comment on above: Order Comment: Speci men Type: BLOOD SPECIMENOrdering Facility: [facility] Address: [address] [place] [address] Performed By: #### 5 7021-8 ####[facility] [id number] [place] [address] [place] Neutrophils/100 WBC (Bld) 63.6 % Normal [facility] Comment on above: Order Comment: Speci men Type: BLOOD SPECIMENOrdering Facility: [facility] Address: [address] [place] [address] Performed By: #### 5 7021-8 ####[facility] [id number] [place] [address] [place] Nucleated RBC (Bld) [#/Vol] 10*3/uL Normal <0.01 [facility] Comment on above: Order Comment: Speci men Type: BLOOD SPECIMENOrdering Facility: [facility] Address: [address] [place] [address] Performed By: #### 5 7021-8 ####[facility] [id number] [place] [address] [place] Nucleated RBC/100 WBC (Bld) [Ratio] 0.0 /100 WBC Normal [facility] Comment on above: Order Comment: Speci men Type: BLOOD SPECIMENOrdering Facility: [facility] Address: [address] [place] [address] Performed By: #### 5 7021-8 ####[facility] [id number] [place] [address] [place] Platelet mean volume (Bld) [Entitic vol] 9.6 fL Normal 9.0-12.7 [facility] Comment on above: Order Comment: Speci men Type: BLOOD SPECIMENOrdering Facility: [facility] Address: [address] [place] [address] Performed By: #### 5 7021-8 ####[facility] [id number] [place] [address] [place] Platelets (Bld) [#/Vol] 148 10*3/uL Low 150-400 [facility] Comment on above: Order Comment: Speci men Type: BLOOD SPECIMENOrdering Facility: [facility] Address: [address] [place] [address] Performed By: #### 5 7021-8 ####[facility] [id number] [place] [address] [place] RBC (Bld) [#/Vol] 3.36 10*6/uL Low 4.20-6.00 [facility] Comment on above: Order Comment: Speci men Type: BLOOD SPECIMENOrdering Facility: [facility] Address: [address] [place] [address] Performed By: #### 5 7021-8 ####[facility] [id number] [place] [address] [place] WBC (Bld) [#/Vol] 7.65 10*3/uL Normal 3.70-11.00 [facility] Comment on above: Order Comment: Speci men Type: BLOOD SPECIMENOrdering Facility: [facility] Address: [address] [place] [address] Performed By: #### 5 7021-8 ####[facility] [id number] [place] [address] [place] Magnesium SerPl-mCncon 10-31 Magnesium [Mass/Vol] 2.4 mg/dL High 1.7-2.3 [facility] Comment on above: Order Comment: Speci men Type: BLOOD SPECIMEN Ordering Facility: [facility] Address: [address] [place] [address] Performed By: #### 5 7021-8 #### [facility] CLIA [id number] [address] [place] [address] [place] Phosphate SerPl-mCncon 10-31 Phosphate [Mass/Vol] 2.3 mg/dL Low 2.7-4.8 [facility] Comment on above: Order Comment: Speci men Type: BLOOD SPECIMEN Ordering Facility: [facility] Address: [address] [place] [address] Performed By: #### 5 7021-8 #### [facility] CLIA [id number] [address] [place] [address], [place] [address] [place] Basic metabolic 2000 panelon 10-31-2023 Anion gap [Moles/Vol] 10 mmol/L Normal 9-18 [facility] Comment on above: Order Comment: Speci men Type: BLOOD SPECIMEN Ordering Facility: [facility] Address: [address] [place] [address] Performed By: #### 2 777-1, 38100-4, #### [facility] CLIA [id number] [address] [place] [address] [place] Calcium [Mass/Vol] 7.8 mg/dL Low 8.5-10.2 [facility] Comment on above: Order Comment: Speci men Type: BLOOD SPECIMEN Ordering Facility: [facility] Address: [address] [place] [address] Performed By: #### 2 777-1, 21170-7, #### [facility] CLIA [id number] [address] [place] [address] [place] Chloride [Moles/Vol] 115 mmol/L High 97-105 [facility] Comment on above: Order Comment: Speci men Type: BLOOD SPECIMEN Ordering Facility: [facility] Address: [address] [place] [address] Performed By: #### 2 777-1, 27047-4, #### [facility] CLIA [id number] [address] [place] [address] [place] CO2 [Moles/Vol] 23 mmol/L Normal 22-30 [facility] Comment on above: Order Comment: Speci men Type: BLOOD SPECIMEN Ordering Facility: [facility] Address: [address] [place] [address] Performed By: #### 2 777-1, 78248-4, #### [facility] CLIA [id number] [address] [place], [place] [address] [place] Creatinine [Mass/Vol] 0.72 mg/dL Low 0.73-1.22 [facility] Comment on above: Order Comment: Sana zuñiga Type: BLOOD SPECIMEN Ordering Facility: [facility] Address: [address] [place] [address] Performed By: #### 2 777-1, 50381-3, #### [facility] CLIA [id number] [address] [place] [address] [place] [facility] Creatinine and Glomerular filtration rate.predicted panel (S/P/Bld) 125 mL/min/1.73m??? Normal >=60 [facility] Comment on above: Order Comment: Sana zuñiga Type: BLOOD SPECIMEN Ordering Facility: [facility] Address: [address] [place] [address] Result Comment: Lor mated Glomerular Filtration Rate [...] actual GFR. Performed By: #### 2 777-1, 15033-5, #### [facility] CLIA [id number] [address] [place] [address] [place] Glucose [Mass/Vol] 93 mg/dL Normal 74-99 [facility] Comment on above: Order Comment: Sana zuñiga Type: BLOOD SPECIMEN Ordering Facility: [facility] Address: [address] [place] [address] Result Comment: The [place] [employer] (ADA) provides guidance for cutoff [...] Standards of Medical Care in Diabetes 2016, [place] [employer]. Diabetes Care. 2016.39(Suppl 1). Performed By: #### 2 777-1, 41634-4, #### [facility] CLIA [id number] [address] [place] [address] [place] Potassium [Moles/Vol] 3.9 mmol/L Normal 3.7-5.1 [facility] Comment on above: Order Comment: Speci men Type: BLOOD SPECIMEN Ordering Facility: [facility] Address: [address] [place] [address] Performed By: #### 2 777-1, , #### [facility] CLIA [id number] [address] [place] [address] [place] Sodium [Moles/Vol] 148 mmol/L High 136-144 [facility] Comment on above: Order Comment: Speci men Type: BLOOD SPECIMEN Ordering Facility: [facility] Address: [address] [place] [address] Performed By: #### 2 777-1, , #### [facility] CLIA [id number] [address] [place] [address] [place] Urea nitrogen [Mass/Vol] 8 mg/dL Low 9-24 [facility] Comment on above: Order Comment: Speci men Type: BLOOD SPECIMEN Ordering Facility: [facility] Address: [address] [place] [address] Performed By: #### 2 777-1, , #### [facility] CLIA [id number] [address] [place], [place] [address] [place] CBC W Auto Differential pane l (Bld)on 10-31-2023 Basophils (Bld) [#/Vol] 10*3/uL Normal <0.11 [facility] Comment on above: Order Comment: Speci men Type: BLOOD SPECIMEN Ordering Facility: [facility] Address: [address] [place] [address] Performed By: #### 5 7021-8 #### [facility] CLIA [id number] [address] [place] [address] [place] Basophils/100 WBC (Bld) 0.2 % Normal [facility] Comment on above: Order Comment: Speci men Type: BLOOD SPECIMEN Ordering Facility: [facility] Address: [address] [place] [address] Performed By: #### 5 7021-8 #### [facility] CLIA [id number] [address] [place] [address] [place] Differential cell count method Nom (Bld) Auto Normal [facility] Comment on above: Order Comment: Speci men Type: BLOOD SPECIMEN Ordering Facility: [facility] Address: [address] [place] [address] Performed By: #### 5 7021-8 #### [facility] CLIA [id number] [address] [place] [address] [place] Eosinophils (Bld) [#/Vol] 0.18 10*3/uL Normal <0.46 [facility] Comment on above: Order Comment: Speci men Type: BLOOD SPECIMEN Ordering Facility: [facility] Address: [address] [place] [address] Performed By: #### 5 7021-8 #### [facility] CLIA [id number] [address] [place] [address] [place] Eosinophils/100 WBC (Bld) 1.9 % Normal [facility] Comment on above: Order Comment: Speci men Type: BLOOD SPECIMEN Ordering Facility: [facility] Address: [address] [place] [address] Performed By: #### 5 7021-8 #### [facility] CLIA [id number] [address] [place] [address] [place] Erythrocyte distribution width (RBC) [Ratio] 14.5 % Normal 11.5-15.0 [facility] Comment on above: Order Comment: Speci men Type: BLOOD SPECIMEN Ordering Facility: [facility] Address: [address] [place] [address] Performed By: #### 5 7021-8 #### [facility] CLIA [id number] [address] [place] [address] [place] Hematocrit (Bld) [Volume fraction] 30.2 % Low 39.0-51.0 [facility] Comment on above: Order Comment: Speci men Type: BLOOD SPECIMEN Ordering Facility: [facility] Address: [address] [place] [address] Performed By: #### 5 7021-8 #### [facility] CLIA [id number] [address] [place] [address] [place] Hemoglobin (Bld) [Mass/Vol] 9.4 g/dL Low 13.0-17.0 [facility] Comment on above: Order Comment: Speci men Type: BLOOD SPECIMEN Ordering Facility: [facility] Address: [address] [place] [address] Performed By: #### 5 7021-8 #### [facility] CLIA [id number] [address] [place] [address] [place] Immature granulocytes (Bld) [#/Vol] 0.06 10*3/uL Normal <0.10 [facility] Comment on above: Order Comment: Speci men Type: BLOOD SPECIMEN Ordering Facility: [facility] Address: [address] [place] [address] Performed By: #### 5 7021-8 #### [facility] CLIA [id number] [address] [place] [address] [place] Immature granulocytes/100 WBC (Bld) 0.6 % Normal [facility] Comment on above: Order Comment: Speci men Type: BLOOD SPECIMEN Ordering Facility: [facility] Address: [address] [place] [address] Performed By: #### 5 7021-8 #### [facility] CLIA [id number] [address] [place] [address] [place] Lymphocytes (Bld) [#/Vol] 1.61 10*3/uL Normal 1.00-4.00 [facility] Comment on above: Order Comment: Speci men Type: BLOOD SPECIMEN Ordering Facility: [facility] Address: [address] [place] [address] Performed By: #### 5 7021-8 #### [facility] CLIA [id number] [address] [place] [address] [place] Lymphocytes/100 WBC (Bld) 16.8 % Normal [facility] Comment on above: Order Comment: Speci men Type: BLOOD SPECIMEN Ordering Facility: [facility] Address: [address] [place] [address] Performed By: #### 5 7021-8 #### [facility] CLIA [id number] [address] [place] [address] [place] MCH (RBC) [Entitic mass] 26.5 pg Normal 26.0-34.0 [facility] Comment on above: Order Comment: Speci men Type: BLOOD SPECIMEN Ordering Facility: [facility] Address: [address] [place] [address] Performed By: #### 5 7021-8 #### [facility] CLIA [id number] [address] [place] [address] [place] MCHC (RBC) [Mass/Vol] 31.1 g/dL Normal 30.5-36.0 [facility] Comment on above: Order Comment: Speci men Type: BLOOD SPECIMEN Ordering Facility: [facility] Address: [address] [place] [address] Performed By: #### 5 7021-8 #### [facility] CLIA [id number] [address] [place] [address] [place] MCV (RBC) [Entitic vol] 85.1 fL Normal 80.0-100.0 [facility] Comment on above: Order Comment: Speci men Type: BLOOD SPECIMEN Ordering Facility: [facility] Address: [address] [place] [address] Performed By: #### 5 7021-8 #### [facility] CLIA [id number] [address] [place] [address] [place] Monocytes (Bld) [#/Vol] 0.88 10*3/uL High <0.87 [facility] Comment on above: Order Comment: Speci men Type: BLOOD SPECIMEN Ordering Facility: [facility] Address: [address] [place] [address] Performed By: #### 5 7021-8 #### [facility] CLIA [id number] [address] [place] [address] [place] Monocytes/100 WBC (Bld) 9.2 % Normal [facility] Comment on above: Order Comment: Speci men Type: BLOOD SPECIMEN Ordering Facility: [facility] Address: [address] [place] [address] Performed By: #### 5 7021-8 #### [facility] CLIA [id number] [address] [place] [address] [place] Neutrophils (Bld) [#/Vol] 6.84 10*3/uL Normal 1.45-7.50 [facility] Comment on above: Order Comment: Speci men Type: BLOOD SPECIMEN Ordering Facility: [facility] Address: [address] [place] [address] Performed By: #### 5 7021-8 #### [facility] CLIA [id number] [address] [id number] [address] [place] Neutrophils/100 WBC (Bld) 71.3 % Normal [facility] Comment on above: Order Comment: Speci men Type: BLOOD SPECIMEN Ordering Facility: [facility] Address: [address] [place] [address] Performed By: #### 5 7021-8 #### [facility] CLIA [id number] [address] [place] [address] [place] Nucleated RBC (Bld) [#/Vol] 10*3/uL Normal <0.01 [facility] Comment on above: Order Comment: Speci men Type: BLOOD SPECIMEN Ordering Facility: [facility] Address: [address] [place] [address] Performed By: #### 5 7021-8 #### [facility] CLIA [id number] [address] [place] [address] [place] Nucleated RBC/100 WBC (Bld) [Ratio] 0.0 /100 WBC Normal [facility] Comment on above: Order Comment: Speci men Type: BLOOD SPECIMEN Ordering Facility: [facility] Address: [address] [place] [address] Performed By: #### 5 7021-8 #### [facility] CLIA [id number] [address] [place] [address] [place] Platelet mean volume (Bld) [Entitic vol] 9.8 fL Normal 9.0-12.7 [facility] Comment on above: Order Comment: Speci men Type: BLOOD SPECIMEN Ordering Facility: [facility] Address: [address] [place] [address] Performed By: #### 5 7021-8 #### [facility] CLIA [id number] [address] [place] [address] [place] Platelets (Bld) [#/Vol] 144 10*3/uL Low 150-400 [facility] Comment on above: Order Comment: Speci men Type: BLOOD SPECIMEN Ordering Facility: [facility] Address: [address] [place] [address] Result Comment: Resu lts checked and verified.No clot detected. Performed By: #### 5 7021-8 #### [facility] CLIA [id number] [address] [place] [address] [place] RBC (Bld) [#/Vol] 3.55 10*6/uL Low 4.20-6.00 [facility] Comment on above: Order Comment: Speci men Type: BLOOD SPECIMEN Ordering Facility: [facility] Address: [address] [place] [address] Performed By: #### 5 7021-8 #### [facility] CLIA [id number] [address] [place] [address] [place] WBC (Bld) [#/Vol] 9.59 10*3/uL Normal 3.70-11.00 [facility] Comment on above: Order Comment: Speci men Type: BLOOD SPECIMEN Ordering Facility: [facility] Address: [address] [place] [address] Performed By: #### 5 7021-8 #### [facility] CLIA [id number] [address] [place] [address] [place] CBC panel Auto (Bld)on 10-30 Erythrocyte distribution width (RBC) [Ratio] 14.5 % Normal 11.5-15.0 [facility] Comment on above: Order Comment: Speci men Type: BLOOD SPECIMEN Ordering Facility: [facility] Address: [address] [place] [address] Performed By: #### 5 7021-8 #### [facility] CLIA [id number] [address] [place] [address] [place] Hematocrit (Bld) [Volume fraction] 28.6 % Low 39.0-51.0 [facility] Comment on above: Order Comment: Speci men Type: BLOOD SPECIMEN Ordering Facility: [facility] Address: [address] [place] [address] Performed By: #### 5 7021-8 #### [facility] CLIA [id number] [address] [place] [address] [place] Hemoglobin (Bld) [Mass/Vol] 9.1 g/dL Low 13.0-17.0 [facility] Comment on above: Order Comment: Speci men Type: BLOOD SPECIMEN Ordering Facility: [facility] Address: [address] [place] [address] Performed By: #### 5 7021-8 #### [facility] CLIA [id number] [address] [place] [address] [place] MCH (RBC) [Entitic mass] 27.1 pg Normal 26.0-34.0 [facility] Comment on above: Order Comment: Speci men Type: BLOOD SPECIMEN Ordering Facility: [facility] Address: [address] [place] [address] Performed By: #### 5 7021-8 #### [facility] CLIA [id number] [address] [place] [address] [place] MCHC (RBC) [Mass/Vol] 31.8 g/dL Normal 30.5-36.0 [facility] Comment on above: Order Comment: Speci men Type: BLOOD SPECIMEN Ordering Facility: [facility] Address: [address] [place] [address] Performed By: #### 5 7021-8 #### [facility] CLIA [id number] [address] [place] [address] [place] MCV (RBC) [Entitic vol] 85.1 fL Normal 80.0-100.0 [facility] Comment on above: Order Comment: Speci men Type: BLOOD SPECIMEN Ordering Facility: [facility] Address: [address] [place] [address] Performed By: #### 5 7021-8 #### [facility] CLIA [id number] [address] [place] [address] [place] Nucleated RBC (Bld) [#/Vol] 10*3/uL Normal <0.01 [facility] Comment on above: Order Comment: Speci men Type: BLOOD SPECIMEN Ordering Facility: [facility] Address: [address] [place] [address] Performed By: #### 5 7021-8 #### [facility] CLIA [id number] [address] [place] [address] [place] Platelet mean volume (Bld) [Entitic vol] 10.1 fL Normal 9.0-12.7 [facility] Comment on above: Order Comment: Speci men Type: BLOOD SPECIMEN Ordering Facility: [facility] Address: [address] [place] [address] Performed By: #### 5 7021-8 #### [facility] CLIA [id number] [address] [place] [address] [place] Platelets (Bld) [#/Vol] 180 10*3/uL Normal 150-400 [facility] Comment on above: Order Comment: Speci men Type: BLOOD SPECIMEN Ordering Facility: [facility] Address: [address] [place] [address] Performed By: #### 5 7021-8 #### [facility] CLIA [id number] [address] [place] [address] [place] RBC (Bld) [#/Vol] 3.36 10*6/uL Low 4.20-6.00 [facility] Comment on above: Order Comment: Speci men Type: BLOOD SPECIMEN Ordering Facility: [facility] Address: [address] [place] [address] Performed By: #### 5 7021-8 #### [facility] CLIA [id number] [address] [place] [address] [place] WBC (Bld) [#/Vol] 10.06 10*3/uL Normal 3.70-11.00 [facility] Comment on above: Order Comment: Speci men Type: BLOOD SPECIMEN Ordering Facility: [facility] Address: [address] [place] [address] Performed By: #### 5 7021-8 #### [facility] CLIA [id number] [address] [place] [address] [place] [address] [place] CONSULT PROGon 10-31-2023 CONSULT PROG HNO ID: [id number] Author: HEAVEN CAMACHO MD Service: Urology Author Type: Resident Type: Consult Progress Note Filed: 10/31/2023 06:56 Note Text: [facility] UROLOGY PROGRESS NOTE Name: Johnny Devine Bed: [id number] Date: 10/31/2023 After Hours [facility] Urology Service Pager: [phone] ASSESSMENT AND PLAN Johnny Devine is a [...] affiliate, Dr. Joseph Camacho MD Urology Resident [facility] Pager [phone] For weekend or after hours issues please page the on-call urology pager [phone] 10/31/2023 6:48 AM Subjective SUBJECTIVE - See [...] Imaging All relevant recent imaging reviewed Normal [facility] Comprehensive metabolic 2000 panelon 10-31-2023 Albumin [Mass/Vol] 3.1 g/dL Low 3.9-4.9 [facility] Comment on above: Order Comment: Speci men Type: BLOOD SPECIMEN Ordering Facility: [facility] Address: [address] [place] [address] Performed By: #### 5 7021-8 #### [facility] CLIA [id number] [address] [place] [address] [place] [address] [place] ALP [Catalytic activity/Vol] 31 U/L Low 38-113 [facility] Comment on above: Order Comment: Speci men Type: BLOOD SPECIMEN Ordering Facility: [facility] Address: [address] [place] [id number] Performed By: #### 5 7021-8 #### [facility] CLIA [id number] [address] [place] [address] [place] ALT [Catalytic activity/Vol] 6 U/L Low 10-54 [facility] Comment on above: Order Comment: Speci men Type: BLOOD SPECIMEN Ordering Facility: [facility] Address: [address] [place] [address] Performed By: #### 5 7021-8 #### [facility] CLIA [id number] [address] [place] [address] [place] Anion gap [Moles/Vol] 6 mmol/L Low 9-18 [facility] Comment on above: Order Comment: Speci men Type: BLOOD SPECIMEN Ordering Facility: [facility] Address: [address] [place] [address] Performed By: #### 5 7021-8 #### [facility] CLIA [id number] [address] [place] [address] [place] AST [Catalytic activity/Vol] 13 U/L Low 14-40 [facility] Comment on above: Order Comment: Speci men Type: BLOOD SPECIMEN Ordering Facility: [facility] Address: [address] [place], [place] [address] Performed By: #### 5 7021-8 #### [facility] CLIA [id number] [address] [place], [place] [address] [place] Bilirubin [Mass/Vol] mg/dL Low 0.2-1.3 [facility] Comment on above: Order Comment: Speci men Type: BLOOD SPECIMEN Ordering Facility: [facility] Address: [address] [place], [place] [address] Performed By: #### 5 7021-8 #### [facility] CLIA [id number] [address] [place] [address] [place] Calcium [Mass/Vol] 7.4 mg/dL Low 8.5-10.2 [facility] Comment on above: Order Comment: Speci men Type: BLOOD SPECIMEN Ordering Facility: [facility] Address: [address] [place] [address] Performed By: #### 5 7021-8 #### [facility] CLIA [id number] [address] [place] [address] [place] Chloride [Moles/Vol] 115 mmol/L High 97-105 [facility] Comment on above: Order Comment: Speci men Type: BLOOD SPECIMEN Ordering Facility: [facility] Address: [address] [place] [address] Performed By: #### 5 7021-8 #### [facility] CLIA [id number] [address] [place] [address] [place] CO2 [Moles/Vol] 26 mmol/L Normal 22-30 [facility] Comment on above: Order Comment: Speci men Type: BLOOD SPECIMEN Ordering Facility: [facility] Address: [address] [place] [address] Performed By: #### 5 7021-8 #### [facility] CLIA [id number] [address] [place] [address] [place] Creatinine [Mass/Vol] 0.73 mg/dL Normal 0.73-1.22 [facility] Comment on above: Order Comment: Speci men Type: BLOOD SPECIMEN Ordering Facility: [facility] Address: [address] [place] [address] Performed By: #### 5 7021-8 #### [facility] CLIA [id number] [address] [place] [address] [place] Creatinine and Glomerular filtration rate.predicted panel (S/P/Bld) 125 mL/min/1.73m??? Normal >=60 [facility] Comment on above: Order Comment: Sana zuñiga Type: BLOOD SPECIMEN Ordering Facility: [facility] Address: [address] [place] [address] Result Comment: Lor mated Glomerular Filtration Rate [...] GFR. Performed By: #### 5 7021-8 #### [facility] CLIA [id number] [address] [place] [address] [place] Glucose [Mass/Vol] 103 mg/dL High 74-99 [facility] Comment on above: Order Comment: Sana zuñiga Type: BLOOD SPECIMEN Ordering Facility: [facility] Address: [address] [place] [address] Result Comment: The [place] [employer] (ADA) provides guidance for cutoff [...] Standards of Medical Care in Diabetes 2016, [place] [employer]. Diabetes Care. 2016.39(Suppl 1). Performed By: #### 5 7021-8 #### [facility] CLIA [id number] [address] [place] [address] [place] Potassium [Moles/Vol] 4.0 mmol/L Normal 3.7-5.1 [facility] Comment on above: Order Comment: Sana zuñiga Type: BLOOD SPECIMEN Ordering Facility: [facility] Address: [address] [place] [address] Performed By: #### 5 7021-8 #### [facility] CLIA [id number] [address] [place] [address] [place] Protein [Mass/Vol] 5.6 g/dL Low 6.3-8.0 [facility] Comment on above: Order Comment: Speci men Type: BLOOD SPECIMEN Ordering Facility: [facility] Address: [address] [place] [address] Performed By: #### 5 7021-8 #### [facility] [place] [id number] [address] [place] [address] [place] Sodium [Moles/Vol] 147 mmol/L High 136-144 [facility] Comment on above: Order Comment: Speci men Type: BLOOD SPECIMEN Ordering Facility: [facility] Address: [address] [place] [address] Performed By: #### 5 7021-8 #### [facility] IA [id number] [address] [place] [address] [place] Urea nitrogen [Mass/Vol] 9 mg/dL Normal 9-24 [facility] Comment on above: Order Comment: Speci men Type: BLOOD SPECIMEN Ordering Facility: [facility] Address: [address] [place] [address] Performed By: #### 5 7021-8 #### [facility] IA [id number] [address] [place] [address] [place] [id number] 10-31-2023 ECG01 Ventricular Rate : 9 3 BPM Atrial Rate : 93 BPM P-R Interval : 146 ms QRS Duration : 90 ms Q-T Interval : 394 ms QTC Calculation(Bazett) : 489 ms Calculated P [place] : 7 degrees Calculated R [place] : 11 degrees Calculated T [place] : -11 degrees NORMAL SINUS RHYTHM ANTEROLATERAL T WAVE ABNORMALITY BORDERLINE PROLONGED QTC ABNORMAL ECG Confirmed by TRENT BYRD MD ([id number]) on 11/06/2023 9:42:18 AM NAME : JOHNNY DEVINE PID : [id number] : 1990 Gender : Male Race : ORD : Procedure Date : Oct 31 2023 15:33:44 Edit Date : Nov 06 2023 09:42:18 Diagnosis: NORMAL SINUS RHYTHM ANTEROLATERAL T WAVE ABNORMALITY BORDERLINE PROLONGED QTC ABNORMAL ECG Confirmed by TRENT BYRD MD ([id number]) on 11/06/2023 9:42:18 AM Test Reason : AMET Location : 74 : H71 1-19 Overread By : TRENT BYRD MD Edited By : TRENT BYRD MD Referred By : PHOENIX CARDENAS Acquired by : MARI DUMONT [facility] EMERon 10-31-2023 [facility] HNO ID: [id number] Author: PASTORA KINGSLEY APRN.CNP Service: Critical Care Author Type: Nurse Practitioner [...] October 31, 2023 TIME: 4:13 PM Normal [facility] Magnesium SerPl-mCncon 10-30 Magnesium [Mass/Vol] 2.2 mg/dL Normal 1.7-2.3 [facility] Comment on above: Order Comment: Speci yogesh Type: BLOOD SPECIMENOrdering Facility: [facility] Address: [address] [place] [address] Performed By: #### 1 9123-9, 2777-1 ####[facility] [id number] [place] [address] [place] Magnesium [Mass/Vol] 2.1 mg/dL Normal 1.7-2.3 [facility] Comment on above: Order Comment: Speci men Type: BLOOD SPECIMEN [facility]ing Facility: [facility] Address: [address] [place] [address] Performed By: #### 2 777-1, 25778-3, 81431-4 #### [facility] CLIA [id number] [address] [place], [place] [address] [place] NURSING PROGon 10-31-2023 NURSING PROG HNO ID: [id number] Author: PAZ RIGGINS, RN Service: Nursing Author Type: Registered Nurse Type: Nursing Progress Note Filed: 10/31/2023 16:32 Note Text: Called into patients room by brother who stated patient was shaking hard and having seizure like activity, on entering room patient was tachypneic and breathing hard, AMET activated. Chest xray ordered, EKG done, labs done, oxygen 89 on RA, 2L NC applied. Normal [facility] Phosphate SerPl-mCncon 10-30 Phosphate [Mass/Vol] 1.4 mg/dL Low 2.7-4.8 [facility] Comment on above: Order Comment: Speci men Type: BLOOD SPECIMENOrdering Facility: [facility] Address: [address] [place] [address] Performed By: #### 1 9123-9, 2777-1 ####[facility] [id number] [place] [address] [place] Phosphate [Mass/Vol] 2.1 mg/dL Low 2.7-4.8 [facility] Comment on above: Order Comment: Speci men Type: BLOOD SPECIMEN [facility] Address: [address] [place] [address] Performed By: #### 2 777-1, 99954-7, 41015-7 #### [facility] CLIA [id number] [address] [place], [place] [address] [place] XR ABDOMEN 1V [...] abnormality. Lung bases are not well seen. [employer]: [facility] Transcribe Date/Time: Oct 31 2023 5:15P Dictated by : LEONEL ALONZO MD This examination was interpreted and the report reviewed and electronically signed by: LEONEL ALONZO MD on Oct 31 2023 5:22PM EST [id number] Normal [facility] XR CHEST 1V FRONTAL PORTon 0 10-31-2023 [...] cardiomediastinal silhouette. Other: . IMPRESSION: See result. [employer]: [facility] Transcribe Date/Time: Oct 31 2023 4:14P Dictated by : SHEA WORTHY MD This examination was interpreted and the report reviewed and electronically signed by: SHEA WORTHY MD on Oct 31 2023 4:15PM EST [id number] Normal [facility] ANES POSTPROC EVALon 024 ANES POSTPROC EVAL HNO ID: [id number] Author: JEREMIE JOAQUIN MD Service: ? Author Type: Anesthesiologist Type: Anesthesia Postprocedure Evaluation Filed: 10/30/2023 11:55 Note Text: POST ANESTHESIA EVALUATION NOTE : 1990 Procedure Summary Date: 10/30/23 Room / Location: [address] Anesthesia Start: 731 Anesthesia Stop: 902 Procedure: [...] October 30, 2023 TIME: 11:46 AM CSN: [id number] Normal [facility] ANES PRE-OPon 10-30-2023 ANES PRE-OP HNO ID: [id number] Author: JEREMIE JOAQUIN MD Service: ? Author Type: Anesthesiologist Type: Anesthesia Preprocedure Evaluation Filed: 10/30/2023 08:16 Note Text: ANESTHESIOLOGY DAY OF SURGERY NOTE : 1990 Procedure Information Date/Time: 10/30/23729 Procedure: DORSAL SLIT FORESKIN EXCEPT (Penis) Location: [facility]IN [facility] Surgeons: Rafael Giraldo MD Estimated body mass index is 31.24 [...] mL MUCOUS MEMBRANE ONCE - phenol 1 [place] (CHLORASEPTIC) 1 [place] MUCOUS MEMBRANE (TOPICAL MOUTH AND THROAT) q [...] INTRAVENOUS DAILY (6 AM) - phenol 1 [place] (CHLORASEPTIC) 1 [place] MUCOUS MEMBRANE (TOPICAL MOUTH AND THROAT) q [...] MORNING F (more content not included)... Normal [facility] Basic metabolic 2000 panelon 10-30-2023 Anion gap [Moles/Vol] 12 mmol/L Normal 9-18 [facility] Comment on above: Order Comment: Speci men Type: BLOOD SPECIMEN [facility] Address: [address] [place] [address] Performed By: #### 2 4321-2, 69171-0, 2776-08 #### [facility] CLIA [id number] [address] [place] [address] [place] Calcium [Mass/Vol] 7.4 mg/dL Low 8.5-10.2 [facility] Comment on above: Order Comment: Speci men Type: BLOOD SPECIMEN [facility] Address: [address] [place] [address] Performed By: #### 2 4321-2, 49637-0, 2776- #### [facility] CLIA [id number] [address] [place] [address] [place] Chloride [Moles/Vol] 113 mmol/L High 97-105 [facility] Comment on above: Order Comment: Speci men Type: BLOOD SPECIMEN [facility] Address: [address] [place] [address] Performed By: #### 2 4321-2, 24625-6, 2777-1 #### [facility] CLIA [id number] [address] [place] [address] [place] CO2 [Moles/Vol] 24 mmol/L Normal 22-30 [facility] Comment on above: Order Comment: Speci men Type: BLOOD SPECIMEN [facility] Address: [address] [place] [address] Performed By: #### 2 4321-2, 83179-1, 2777-1 #### [facility] CLIA [id number] [address] [place] [address] [place] Creatinine [Mass/Vol] 0.69 mg/dL Low 0.73-1.22 [facility] Comment on above: Order Comment: Speci men Type: BLOOD SPECIMEN [facility] Address: [address] [place] [address] Performed By: #### 2 4321-2, 27328-9, 2777-1 #### [facility] CLIA [id number] [address] [place] [address] [place] Creatinine and Glomerular filtration rate.predicted panel (S/P/Bld) 127 mL/min/1.73m??? Normal >=60 [facility] Comment on above: Order Comment: Speci men Type: BLOOD SPECIMEN [facility] Address: [address] [place] [address] Result Comment: Lor mated Glomerular Filtration Rate [...] By: #### 2 4321-2, , 2776-08 #### [facility] CLIA [id number] [address] [address] [place] Glucose [Mass/Vol] 98 mg/dL Normal 74-99 [facility] Comment on above: Order Comment: Sana zuñiga Type: BLOOD SPECIMEN [facility] Address: [address] [place] [address] Result Comment: The [place] Diabetes Association (ADA) provides guidance for cutoff [...] Standards of Medical Care in Diabetes 2016, [place] [employer]. Diabetes Care. 2016.39(Suppl 1). Performed By: #### 2 4321-2, , 2776-08 #### [facility] CLIA [id number] [facility] [place] [address] [place] Potassium [Moles/Vol] 3.6 mmol/L Low 3.7-5.1 [facility] Comment on above: Order Comment: Sana zuñiga Type: BLOOD SPECIMEN [facility] Address: [address] [place] [address] Performed By: #### 2 4321-2, , 2776-08 #### [facility] CLIA [id number] [address] [address] [place] Sodium [Moles/Vol] 149 mmol/L High 136-144 [facility] Comment on above: Order Comment: Speci men Type: BLOOD SPECIMEN [facility] Address: [address] [place] [address] Performed By: #### 2 4321-2, , 2776-08 #### [facility] CLIA [id number] [address] [place] [address] [place] Urea nitrogen [Mass/Vol] 9 mg/dL Normal 9-24 [facility] Comment on above: Order Comment: Speci men Type: BLOOD SPECIMEN [facility] Address: [address] [place] [address] Performed By: #### 2 4321-2, , 2776-08 #### [facility] CLIA [id number] [address] [place] [address] [place] CBC W Auto Differential pane l (Bld)on 10-30-2023 Basophils (Bld) [#/Vol] 0.03 10*3/uL Normal <0.11 [facility] Comment on above: Order Comment: Speci men Type: BLOOD SPECIMEN [facility] Address: [address] [place] [address] Performed By: #### 5 7021-8 #### [facility] CLIA [id number] [address] [place] [address] [place] Basophils/100 WBC (Bld) 0.3 % Normal [facility] Comment on above: Order Comment: Speci men Type: BLOOD SPECIMEN [facility] Address: [address] [place] [address] Performed By: #### 5 7021-8 #### [facility] CLIA [id number] [address] [place] [address] [place] Differential cell count method Nom (Bld) Auto Normal [facility] Comment on above: Order Comment: Speci men Type: BLOOD SPECIMEN [facility] Address: [address] [place] [address] Performed By: #### 5 7021-8 #### [facility] CLIA [id number] [address] [place] [address] [place] Eosinophils (Bld) [#/Vol] 0.07 10*3/uL Normal <0.46 [facility] Comment on above: Order Comment: Speci men Type: BLOOD SPECIMEN [facility] Address: [address] [place] [address] Performed By: #### 5 7021-8 #### [facility] CLIA [id number] [address] [place] [address] [place] Eosinophils/100 WBC (Bld) 0.6 % Normal [facility] Comment on above: Order Comment: Speci men Type: BLOOD SPECIMEN [facility] Address: [address] [place] [address] Performed By: #### 5 7021-8 #### [facility] CLIA [id number] [address] [place] [address] [place] Erythrocyte distribution width (RBC) [Ratio] 14.5 % Normal 11.5-15.0 [facility] Comment on above: Order Comment: Speci men Type: BLOOD SPECIMEN [facility] Address: [address] [place] [address] Performed By: #### 5 7021-8 #### [facility] CLIA [id number] [address] [place] [address] [place] Hematocrit (Bld) [Volume fraction] 31.1 % Low 39.0-51.0 [facility] Comment on above: Order Comment: Speci men Type: BLOOD SPECIMEN [facility] Address: [address] [place] [address] Performed By: #### 5 7021-8 #### [facility] CLIA [id number] [address] [place] [address] [place] Hemoglobin (Bld) [Mass/Vol] 9.8 g/dL Low 13.0-17.0 [facility] Comment on above: Order Comment: Speci men Type: BLOOD SPECIMEN [facility] Address: [address] [place] [address] Performed By: #### 5 7021-8 #### [facility] CLIA [id number] [address] [place] [address] [place] Immature granulocytes (Bld) [#/Vol] 0.06 10*3/uL Normal <0.10 [facility] Comment on above: Order Comment: Speci men Type: BLOOD SPECIMEN [facility] Address: [address] [place] [address] Performed By: #### 5 7021-8 #### [facility] CLIA [id number] [address] [place] [address] [place] Immature granulocytes/100 WBC (Bld) 0.5 % Normal [facility] Comment on above: Order Comment: Speci men Type: BLOOD SPECIMEN [facility] Address: [address] [place] [address] Performed By: #### 5 7021-8 #### [facility] CLIA [id number] [address] [place] [address] [place] Lymphocytes (Bld) [#/Vol] 1.41 10*3/uL Normal 1.00-4.00 [facility] Comment on above: Order Comment: Speci men Type: BLOOD SPECIMEN [facility] Address: [address] [place] [address] Performed By: #### 5 7021-8 #### [facility] CLIA [id number] [address] [place] [address] [place] Lymphocytes/100 WBC (Bld) 12.0 % Normal [facility] Comment on above: Order Comment: Speci men Type: BLOOD SPECIMEN [facility] Address: [address] [place] [address] Performed By: #### 5 7021-8 #### [facility] CLIA [id number] [address] [place] [address] [place] MCH (RBC) [Entitic mass] 26.6 pg Normal 26.0-34.0 [facility] Comment on above: Order Comment: Speci men Type: BLOOD SPECIMEN [facility] Address: [address] [place] [address] Performed By: #### 5 7021-8 #### [facility] CLIA [id number] [address] [place] [address] [place] MCHC (RBC) [Mass/Vol] 31.5 g/dL Normal 30.5-36.0 [facility] Comment on above: Order Comment: Speci men Type: BLOOD SPECIMEN [facility] Address: [address] [place] [address] Performed By: #### 5 7021-8 #### [facility] CLIA [id number] [address] [place] [address] [place] MCV (RBC) [Entitic vol] 84.5 fL Normal 80.0-100.0 [facility] Comment on above: Order Comment: Speci men Type: BLOOD SPECIMEN [facility] Address: [address] [place] [address] Performed By: #### 5 7021-8 #### [facility] CLIA [id number] [address] [place] [address] [place] Monocytes (Bld) [#/Vol] 1.18 10*3/uL High <0.87 [facility] Comment on above: Order Comment: Speci men Type: BLOOD SPECIMEN [facility] Address: [address] [place] [address] Performed By: #### 5 7021-8 #### [facility] CLIA [id number] [address] [place] [address] [place] Monocytes/100 WBC (Bld) 10.1 % Normal [facility] Comment on above: Order Comment: Speci men Type: BLOOD SPECIMEN [facility] Address: [address] [place] [address] Performed By: #### 5 7021-8 #### [facility] CLIA [id number] [address] [place] [address] [place] Neutrophils (Bld) [#/Vol] 8.98 10*3/uL High 1.45-7.50 [facility] Comment on above: Order Comment: Speci men Type: BLOOD SPECIMEN [facility] Address: [address] [place] [address] Performed By: #### 5 7021-8 #### [facility] CLIA [id number] [address] [place] [address] [place] Neutrophils/100 WBC (Bld) 76.5 % Normal [facility] Comment on above: Order Comment: Speci men Type: BLOOD SPECIMEN [facility] Address: [address] [place] [address] Performed By: #### 5 7021-8 #### [facility] CLIA [id number] [address] [place] [address] [place] Nucleated RBC (Bld) [#/Vol] 10*3/uL Normal <0.01 [facility] Comment on above: Order Comment: Speci men Type: BLOOD SPECIMEN [facility] Address: [address] [place] [address] Performed By: #### 5 7021-8 #### [facility] CLIA [id number] [address] [place] [address] [place] Nucleated RBC/100 WBC (Bld) [Ratio] 0.0 /100 WBC Normal [facility] Comment on above: Order Comment: Speci men Type: BLOOD SPECIMEN [facility] Address: [address] [place] [address] Performed By: #### 5 7021-8 #### [facility] CLIA [id number] [address] [place] [address] [place] Platelet mean volume (Bld) [Entitic vol] 9.7 fL Normal 9.0-12.7 [facility] Comment on above: Order Comment: Speci men Type: BLOOD SPECIMEN [facility] Address: [address] [place] [address] Performed By: #### 5 7021-8 #### [facility] CLIA [id number] [address] [place] [address] [place] Platelets (Bld) [#/Vol] 138 10*3/uL Low 150-400 [facility] Comment on above: Order Comment: Speci men Type: BLOOD SPECIMEN [facility] Address: [address] [place] [address] Performed By: #### 5 7021-8 #### [facility] CLIA [id number] [address] [place] [address] [place] RBC (Bld) [#/Vol] 3.68 10*6/uL Low 4.20-6.00 [facility] Comment on above: Order Comment: Speci men Type: BLOOD SPECIMEN [facility] Address: [address] [place] [address] Performed By: #### 5 7021-8 #### [facility] CLIA [id number] [address] [place] [address] [place] WBC (Bld) [#/Vol] 11.73 10*3/uL High 3.70-11.00 [facility] Comment on above: Order Comment: Speci men Type: BLOOD SPECIMEN [facility] Address: [address] [place] [address] Performed By: #### 5 7021-8 #### [facility] CLIA [id number] [address] [place] [address] [facility] CONSULT[facility] 10-30-2023 CONSULT HNO ID: [id number] Author: RAFAEL GIRALDO MD Service: Urology Author [...] the meatal orifice was visualized, an 8 [place] Haskins catheter was sterilely placed. However, the [...] Jay Alan MD Resident PGY-2 Urology [facility] [place] [facility] Pager [phone] After hours and on weekend property utilization manager pager [phone] HPI Johnny Devine is a 33 year old male who is non-verbal with developmental delay who is POD 0 from diagnostic lap for concern of bowel obstruction. Per primary team patient was transferred to F with 8 Fr haskins catheter placed at [...] the meatal orifice was visualized, an 8 [place] Haskins catheter was sterilely placed. CYU was [...] CONGESTIONDisp: Rfl: guanFACINE (INTUNIV ER) 4 mg Um90Uyid 4 mg by mouth onc (more content not included)... Normal [facility] Magnesium SerPl-mCncon 10-29 Magnesium [Mass/Vol] 2.0 mg/dL Normal 1.7-2.3 [facility] Comment on above: Order Comment: Speci men Type: BLOOD SPECIMENOrdering Facility: [facility] Address: [address] [place], [place] [address] Performed By: #### 2 4321-2, 58443-2, 2777-1 ####[facility] [id number] [address] [address] [place] NURSING PROGon 10-30-2023 NURSING PROG HNO ID: [id number] Author: SHAHRIAR FARFAN RN Service: Nursing Author Type: Registered Nurse Type: Nursing Progress Note Filed: 10/30/2023 09:52 Note Text: Pt awake, opens eyes spontaneously, MEDINA to command, generalized weakness. Nonverbal at baseline. VSS. Appears comfortable, no grimacing, resting Normal [facility] NURSING PROG HNO ID: [id number] Author: SHAHRIAR FARFAN RN Service: Nursing Author [...] effective in protecting the patient's safety: Alarms, Inspector Government Property/Sitter, Bed in Low/Locked Position Next, a comprehensive assessment was performed and warranted placing the patient in Soft Bilateral Wrists, the least restrictive restraint needed to protect the patient's safety. Ongoing safety assessments and evaluation for earliest removal of restraints will be performed. DATE: October 30, 2023 TIME: 9:48 AM Shahriar Farfan RN Normal [facility] NURSING PROG HNO ID: [id number] Author: LEONARD FRANCIS JR, RN Service: Nursing Author Type: Registered Nurse Type: Nursing Progress Note Filed: 10/30/2023 01:11 Note Text: 2200 PM: PT does not have have a haskins catheter post op. Per report, prior to OR PT was admitted from OSH with a pediatric haskins in place due to difficulties with normal catheter. [id number] Gen surg notified. PT is clean and dry, will bladder scan. 2245 PM: Bladder scan for 485, 915, 999 cc. PT still resting comfortably. 0000 AM: Dr. Leeann Telles at bedside. Pediatric haskins attempted x2 with no success. PT unable to tolerate catheter advancement, restraints still applied. Urology will be consulted per MD. Will CTM. 0030 AM: Restraints removed. 0040 AM: Urology and Gen surg at bedside Leonard PINEDA. Normal [facility] OPERATIVE NOon 10-30-2023 OPERATIVE NO HNO ID: [id number] Author: HERMAN JOHNSON MD Service: Urology Author Type: Resident Type: Operative Report Filed: 10/30/2023 09:08 Note Text: Attestation signed by Oscar Ruiz MD at 10/30/2023 9:20 AM Attestation The primary proceduralist, Wale Thomas, performed the entire procedure with the assistance of Dr. Johnson. I agree with the documentation above. [facility] UROLOGY OPERATIVE REPORT Patient Name: Johnny Devine Patient Log ID: [id number] Surgery Date: 10/30/2023 Incision/Procedure Start Time: 8:03 AM Incision Close/Procedure End Time: 8:17 AM Surgeon(s) and Generator Operator Straight Bevel Gear(s): Surgeon(s) and Role: * Oscar Ruiz MD [...] I agree with the documentation above. Normal [facility] Phosphate SerPl-mCncon 10-29 Phosphate [Mass/Vol] 2.2 mg/dL Low 2.7-4.8 [facility] Comment on above: Order Comment: Speci men Type: BLOOD SPECIMENOrdering Facility: [facility] Address: [address] [place] [address] Performed By: #### 2 4321-2, 14299-8, 2777-1 ####[facility] [id number] [facility] [id number] [address] [place] XR ABDOMEN 1V [...] likely an ileus. Sigmoid distention appears improved [employer]: [employer] Transcribe Date/Time: Oct 30 2023 7:41A Dictated by : RYAN MORRIS MD This examination was interpreted and the report reviewed and electronically signed by: RYAN MORRIS MD on Oct 30 2023 7:43AM EST [id number] Normal [facility] ANES POSTPROC EVALon 024 ANES POSTPROC EVAL HNO ID: [id number] Author: DORIE TENA DO Service: ? Author Type: Anesthesiologist Type: Anesthesia Postprocedure Evaluation Filed: 10/29/2023 14:37 Note Text: POST ANESTHESIA EVALUATION NOTE : 1990 Procedure Summary Date: 10/29/23 Room / Location: [address] [facility] Anesthesia Start: 0948 Anesthesia Stop: 1216 Procedure: EXPLORATORY LAPAROTOMY (Abdomen) Diagnosis: SBO (small bowel obstruction) (HCC) (SBO (small bowel obstruction) (HCC) [K56.609]) Surgeons: Samuel Robin MD Responsible Provider: oDrie Tena DO Anesthesia Type: general ASA Status: [...] October 29, 2023 TIME: 2:34 PM CSN: [id number] Normal [facility] ANES PRE-OPon 10-29-2023 ANES PRE-OP HNO ID: [id number] Author: KENZIE MORE APRN.[place] MACHINE OPERATOR Service: ? Author Type: Nurse Lathe Operator Type: Anesthesia Preprocedure Evaluation Filed: 10/29/2023 09:58 Note Text: ANESTHESIOLOGY DAY OF SURGERY NOTE : 1990 Procedure Information Anesthesia Start Date/Time: 10/29/2348 Procedure: EXPLORATORY LAPAROTOMY (Abdomen) Location: [facility] Surgeons: Samuel Robin MD There is no [...] HR - [Held on Transfer] phenol 1 [place] (CHLORASEPTIC) 1 [place] MUCOUS MEMBRANE (TOPICAL MOUTH AND THROAT) q [...] 2000 - Sennosid (more content not included)... [facility] BRIEF OP NOTon 10-29-2023 BRIEF OP NOT HNO ID: [id number] Author: PA ALICEA MD Service: General Surgery Author Type: Resident Type: Brief Op Note Filed: 10/29/2023 11:47 Note Text: DDSI BRIEF OP NOTE LOG ID: [id number] SURGERY/PROCEDURE DATE: 10/29/2023 INCISION/PROCEDURE START TIME: 10:25 AM INCISION CLOSE/PROCEDURE END TIME: 11:40 AM SURGEON(S)/PROCEDURAL IST(S) AND PROCESS COACH(S): Surgeon(s) and Role: * Samuel Robin MD [...] 29, 2023 TIME: 11:45 AM PAGER/CONTACT #: [facility] BRIEF OP NOT HNO ID: [id number] Author: DANTE CHERRY MD Service: General Surgery Author Type: Resident Type: Brief Op Note Filed: 10/29/2023 11:44 Note Text: BRIEF OPERATIVE / PROCEDURE NOTE LOG ID: [id number] SURGERY/PROCEDURE DATE: 10/29/2023 INCISION/PROCEDURE START TIME: 10:25 AM INCISION CLOSE/PROCEDURE END TIME: 11:40 AM SURGEON(S)/PROCEDURAL IST(S) AND PROCESS COACH(S): Surgeon(s) and Role: * Samuel Robin MD [...] October 29, 2023 TIME: 11:36 AM Normal [facility] BRIEF OP NOT HNO ID: [id number] Author: PA ALICEA MD Service: General Surgery Author Type: Resident Type: Brief Op Note Filed: 10/29/2023 08:42 Note Text: Created in Error Normal [facility] Basic metabolic 2000 panelon 10-29-2023 Anion gap [Moles/Vol] 11 mmol/L Normal 9-18 [facility] Comment on above: Order Comment: Speci men Type: BLOOD SPECIMEN Ordering Facility: [facility] Address: [address] [place] [address] Performed By: #### 2 777-1, 87573-7, #### [facility] CLIA [id number] [address] [place] [address] [place] Calcium [Mass/Vol] 7.4 mg/dL Low 8.5-10.2 [facility] Comment on above: Order Comment: Speci men Type: BLOOD SPECIMEN Ordering Facility: [facility] Address: [address] [place] [address] Performed By: #### 2 777-1, 51002-2, #### [facility] CLIA [id number] [address] [place] [address] [place] Chloride [Moles/Vol] 112 mmol/L High 97-105 [facility] Comment on above: Order Comment: Speci men Type: BLOOD SPECIMEN Ordering Facility: [facility] Address: [address] [place] [address] Performed By: #### 2 777-1, 84439-8, #### [facility] CLIA [id number] [address] [place] [address] [place] CO2 [Moles/Vol] 21 mmol/L Low 22-30 [facility] Comment on above: Order Comment: Speci men Type: BLOOD SPECIMEN Ordering Facility: [facility] Address: [address] [place] [address] Performed By: #### 2 777-1, 45705-4, #### [facility] CLIA [id number] [address] [place] [address] [place] Creatinine [Mass/Vol] 0.69 mg/dL Low 0.73-1.22 [facility] Comment on above: Order Comment: Speci men Type: BLOOD SPECIMEN Ordering Facility: [facility] Address: [address] [place] [address] Performed By: #### 2 777-1, 52741-7, #### [facility] CLIA [id number] [address] [place] [address] [place] Creatinine and Glomerular filtration rate.predicted panel (S/P/Bld) 127 mL/min/1.73m??? Normal >=60 [facility] Comment on above: Order Comment: Speci men Type: BLOOD SPECIMEN Ordering Facility: [facility] Address: [address] [place] [address] Result Comment: Lor mated Glomerular Filtration Rate [...] actual GFR. Performed By: #### 2 777-1, 11606-8, #### [facility] CLIA [id number] [address] [place] [address] [place] Glucose [Mass/Vol] 115 mg/dL High 74-99 [facility] Comment on above: Order Comment: Sana zuñiga Type: BLOOD SPECIMEN Ordering Facility: [facility] Address: [address] [place] [address] Result Comment: The [place] [employer] (ADA) provides guidance for cutoff [...] Standards of Medical Care in Diabetes 2016, [place] [employer]. Diabetes Care. 2016.39(Suppl 1). Performed By: #### 2 777-1, , #### [facility] CLIA [id number] [address] [place] [address] [place] Potassium [Moles/Vol] 3.8 mmol/L Normal 3.7-5.1 [facility] Comment on above: Order Comment: Sana zuñiga Type: BLOOD SPECIMEN Ordering Facility: [facility] Address: [address] [id number] Performed By: #### 2 777-1, 40237-6, #### [facility] CLIA [id number] [address] [place] [address] [place] Sodium [Moles/Vol] 144 mmol/L Normal 136-144 [facility] Comment on above: Order Comment: Speci men Type: BLOOD SPECIMEN Ordering Facility: [facility] Address: [address] [place] [address] Performed By: #### 2 777-1, 13636-9, #### [facility] CLIA [id number] [address] [place] [address] [place] Urea nitrogen [Mass/Vol] 13 mg/dL Normal 9-24 [facility] Comment on above: Order Comment: Speci men Type: BLOOD SPECIMEN Ordering Facility: [facility] Address: [address] [place] [address] Performed By: #### 2 777-1, 06629-9, #### [facility] CLIA [id number] [address] [place] [address] [place] CBC W Auto Differential pane l (Bld)on 10-29-2023 Basophils (Bld) [#/Vol] 10*3/uL Normal <0.11 [facility] Comment on above: Order Comment: Speci men Type: BLOOD SPECIMEN Ordering Facility: [facility] Address: [address] [place] [address] Performed By: #### 5 7021-8 #### [facility] CLIA [id number] [address] [place] [address] [place] Basophils/100 WBC (Bld) 0.1 % Normal [facility] Comment on above: Order Comment: Speci men Type: BLOOD SPECIMEN Ordering Facility: [facility] Address: [address] [place] [address] Performed By: #### 5 7021-8 #### [facility] CLIA [id number] [address] [place] [address] [place] Differential cell count method Nom (Bld) Auto Normal [facility] Comment on above: Order Comment: Speci men Type: BLOOD SPECIMEN Ordering Facility: [facility] Address: [address] [place] [address] Performed By: #### 5 7021-8 #### [facility] CLIA [id number] [address] [place] [address] [place] Eosinophils (Bld) [#/Vol] 10*3/uL Normal <0.46 [facility] Comment on above: Order Comment: Speci men Type: BLOOD SPECIMEN Ordering Facility: [facility] Address: [address] [place] [address] Performed By: #### 5 7021-8 #### [facility] CLIA [id number] [address] [place] [address] [place] Eosinophils/100 WBC (Bld) 0.1 % Normal [facility] Comment on above: Order Comment: Speci men Type: BLOOD SPECIMEN Ordering Facility: [facility] Address: [address] [place] [address] Performed By: #### 5 7021-8 #### [facility] CLIA [id number] [address] [place] [address] [place] Erythrocyte distribution width (RBC) [Ratio] 14.6 % Normal 11.5-15.0 [facility] Comment on above: Order Comment: Speci men Type: BLOOD SPECIMEN Ordering Facility: [facility] Address: [address] [place] [address] Performed By: #### 5 7021-8 #### [facility] CLIA [id number] [address] [place] [address] [place] Hematocrit (Bld) [Volume fraction] 33.0 % Low 39.0-51.0 [facility] Comment on above: Order Comment: Speci men Type: BLOOD SPECIMEN Ordering Facility: [facility] Address: [address] [place] [address] Performed By: #### 5 7021-8 #### [facility] CLIA [id number] [address] [place] [address] [place] Hemoglobin (Bld) [Mass/Vol] 10.5 g/dL Low 13.0-17.0 [facility] Comment on above: Order Comment: Speci men Type: BLOOD SPECIMEN Ordering Facility: [facility] Address: [address] [place] [address] Performed By: #### 5 7021-8 #### [facility] CLIA [id number] [address] [place] [address] [place] Immature granulocytes (Bld) [#/Vol] 0.05 10*3/uL Normal <0.10 [facility] Comment on above: Order Comment: Speci men Type: BLOOD SPECIMEN Ordering Facility: [facility] Address: [address] [place] [address] Performed By: #### 5 7021-8 #### [facility] CLIA [id number] [address] [place] [address] [place] Immature granulocytes/100 WBC (Bld) 0.4 % Normal [facility] Comment on above: Order Comment: Speci men Type: BLOOD SPECIMEN Ordering Facility: [facility] Address: [address] [place] [address] Performed By: #### 5 7021-8 #### [facility] CLIA [id number] [address] [place] [address] [place] Lymphocytes (Bld) [#/Vol] 1.25 10*3/uL Normal 1.00-4.00 [facility] Comment on above: Order Comment: Speci men Type: BLOOD SPECIMEN Ordering Facility: [facility] Address: [address] [place] [address] Performed By: #### 5 7021-8 #### [facility] CLIA [id number] [address] [place] [address] [place] Lymphocytes/100 WBC (Bld) 8.9 % Normal [facility] Comment on above: Order Comment: Speci men Type: BLOOD SPECIMEN Ordering Facility: [facility] Address: [address] [place] [address] Performed By: #### 5 7021-8 #### [facility] CLIA [id number] [address] [place] [address] [place] MCH (RBC) [Entitic mass] 26.9 pg Normal 26.0-34.0 [facility] Comment on above: Order Comment: Speci men Type: BLOOD SPECIMEN Ordering Facility: [facility] Address: [address] [place] [address] Performed By: #### 5 7021-8 #### [facility] CLIA [id number] [address] [place] [address] [place] MCHC (RBC) [Mass/Vol] 31.8 g/dL Normal 30.5-36.0 [facility] Comment on above: Order Comment: Speci men Type: BLOOD SPECIMEN Ordering Facility: [facility] Address: [address] [place] [address] Performed By: #### 5 7021-8 #### [facility] CLIA [id number] [address] [place] [address] [place] MCV (RBC) [Entitic vol] 84.6 fL Normal 80.0-100.0 [facility] Comment on above: Order Comment: Speci men Type: BLOOD SPECIMEN Ordering Facility: [facility] Address: [address] [place] [address] Performed By: #### 5 7021-8 #### [facility] CLIA [id number] [address] [place] [address] [place] Monocytes (Bld) [#/Vol] 1.50 10*3/uL High <0.87 [facility] Comment on above: Order Comment: Speci men Type: BLOOD SPECIMEN Ordering Facility: [facility] Address: [address] [place] [address] Performed By: #### 5 7021-8 #### [facility] CLIA [id number] [address] [place] [address] [place] Monocytes/100 WBC (Bld) 10.6 % Normal [facility] Comment on above: Order Comment: Speci men Type: BLOOD SPECIMEN Ordering Facility: [facility] Address: [address] [place] [address] Performed By: #### 5 7021-8 #### [facility] CLIA [id number] [address] [place] [address] [place] Neutrophils (Bld) [#/Vol] 11.26 10*3/uL High 1.45-7.50 [facility] Comment on above: Order Comment: Speci men Type: BLOOD SPECIMEN Ordering Facility: [facility] Address: [address] [place] [address] Performed By: #### 5 7021-8 #### [facility] CLIA [id number] [address] [place] [address] [place] Neutrophils/100 WBC (Bld) 79.9 % Normal [facility] Comment on above: Order Comment: Speci men Type: BLOOD SPECIMEN Ordering Facility: [facility] Address: [address] [place] [address] Performed By: #### 5 7021-8 #### [facility] CLIA [id number] [address] [place] [address] [place] Nucleated RBC (Bld) [#/Vol] 10*3/uL Normal <0.01 [facility] Comment on above: Order Comment: Speci men Type: BLOOD SPECIMEN Ordering Facility: [facility] Address: [address] [place] [address] Performed By: #### 5 7021-8 #### [facility] CLIA [id number] [address] [place], [place] [address] [place] Nucleated RBC/100 WBC (Bld) [Ratio] 0.0 /100 WBC Normal [facility] Comment on above: Order Comment: Speci men Type: BLOOD SPECIMEN Ordering Facility: [facility] Address: [address] [place] [address] Performed By: #### 5 7021-8 #### [facility] CLIA [id number] [address] [place] [address] [place] Platelet mean volume (Bld) [Entitic vol] 9.4 fL Normal 9.0-12.7 [facility] Comment on above: Order Comment: Speci men Type: BLOOD SPECIMEN Ordering Facility: [facility] Address: [address] [place] [address] Performed By: #### 5 7021-8 #### [facility] CLIA [id number] [address] [place] [address] [place] Platelets (Bld) [#/Vol] 151 10*3/uL Normal 150-400 [facility] Comment on above: Order Comment: Speci men Type: BLOOD SPECIMEN Ordering Facility: [facility] Address: [address] [place] [address] Performed By: #### 5 7021-8 #### [facility] CLIA [id number] [address] [place] [address] [place] RBC (Bld) [#/Vol] 3.90 10*6/uL Low 4.20-6.00 [facility] Comment on above: Order Comment: Speci men Type: BLOOD SPECIMEN Ordering Facility: [facility] Address: [address] [place] [address] Performed By: #### 5 7021-8 #### [facility] CLIA [id number] [address] [place] [address] [place] WBC (Bld) [#/Vol] 14.09 10*3/uL High 3.70-11.00 [facility] Comment on above: Order Comment: Speci men Type: BLOOD SPECIMEN Ordering Facility: [facility] Address: [address] [place] [address] Performed By: #### 5 7021-8 #### [facility] CLIA [id number] [address] [place] [address] [place] CONFIRM BLOOD TYPEon 024 ABO A Normal [facility] Comment on above: Order Comment: Speci men Type: BLOOD SPECIMENOrdering Facility: [facility] Address: [address] [place] [address] Performed By: #### C ONABO ####[facility] [id number] [place] [address] [place] Rh Nom (Bld) Positive Normal [facility] Comment on above: Order Comment: Speci men Type: BLOOD SPECIMENOrdering Facility: [facility] Address: [address] [place] [address] Performed By: #### C ONABO ####[facility] B[facility] BANKCLIA [id number] [place] [address] [place] Magnesium SerPl-mCncon 10-28 Magnesium [Mass/Vol] 1.8 mg/dL Normal 1.7-2.3 [facility] Comment on above: Order Comment: Speci men Type: BLOOD SPECIMEN Ordering Facility: [facility] Address: [address] [place] [address] Performed By: #### 2 777-1, 70675-7, 13957-8 #### [facility] CLIA [id number] [address] [place] [address] [place] NURSING PROGon 10-29-2023 NURSING PROG HNO ID: [id number] Author: BAILEY HUTSON RN Service: Nursing Author Type: Registered Nurse Type: Nursing Progress Note Filed: 10/29/2023 18:29 Note Text: [id number] [place] [phone] to notify of patient's current temp of 100.2 F. Will continue to monitor. Normal [facility] NURSING PROG HNO ID: [id number] Author: BAILEY HUTSON RN Service: Nursing Author Type: Registered Nurse Type: Nursing Progress Note Filed: 10/29/2023 17:35 Note Text: Nursing Progress: Topic: RESTRAINT NON-VIOLENT PATIENT NAME: Johnny Devine Patient Location: [place] [address]/[facility] Room: [place] [address] The patient demonstrates Attempting to Remove Medical [...] the patient's safety: Bed in Low/Locked Position, Inspector Government Property/Sitter, Diversion Activities, IV/Feeding Bag/Pump Out of Vision, [...] 2023 TIME: 5:07 PM Bailey Hutson RN [facility] NURSING PROG HNO ID: [id number] Author: BAILEY HUTSON RN Service: Nursing Author Type: Registered Nurse Type: Nursing Progress Note Filed: 10/29/2023 15:25 Note Text: 1518 [place] [phone] to request indwelling Haskins for incontinence and skin breakdown management. Will continue to monitor. 1523 Patient repeatedly attempt to remove NG tube despite the sitter at the bedside. Primary team notified with request for order for bilateral soft wrist restraint. Will continue to monitor. [facility] NURSING PROG HNO ID: [id number] Author: OLIMPIA MAGALLON RN Service: Nursing Author Type: Registered Nurse Type: Nursing Progress Note Filed: 10/29/2023 13:37 Note Text: Pt resting quietly with patient lubrication equipment servicer at bedside. Several attempts to reach for NG tube, patient relaxes and moves hand away from from drain if you say hand down Per brother John Paul. This has been effective. Pt resting quietly, no facial grimacing, posturing, or guarding. Vss, resp rate even and non labored. Pt has returned to presurgical baseline and is being transferred back to [facility] in stable condition. Opening eyes when name is called. Brother Delbert (guardian) updated prior to patient transfer. Normal [facility] OPERATIVE NOon 10-29-2023 OPERATIVE NO HNO ID: [id number] Author: SAMUEL ROBIN MD Service: General Surgery Author Type: Physician Type: Operative Report Filed: 10/29/2023 13:52 Note Text: OPERATIVE/PROCEDURE REPORT LOG ID: [id number] SURGERY/PROCEDURE DATE: 10/29/2023 INCISION/PROCEDURE START TIME: 10:25 AM INCISION CLOSE/PROCEDURE END TIME: 11:40 AM SURGEON(S)/PROCEDURAL IST(S) AND PROCESS COACH(S): Surgeon(s) and Role: * Samuel Robin MD [...] for the entirety of the case. Normal [facility] Phosphate SerPl-mCncon 10-28 Phosphate [Mass/Vol] 2.3 mg/dL Low 2.7-4.8 [facility] Comment on above: Order Comment: Speci men Type: BLOOD SPECIMEN Ordering Facility: [facility] Address: [address] [place] [address] Performed By: #### 2 777-1, 28675-2, #### [facility] CLIA [id number] [address] [place] [address] [place] SEPSIS LACTATEon 10-29-2023 Lactate [Moles/Vol] 1.2 mmol/L Normal <=2.0 [facility] Comment on above: Order Comment: Speci men Type: BLOOD SPECIMENOrdering Facility: [facility] Address: [address] [place] [address] Performed By: #### S LACT ####[facility] [id number] [place] [address] [place] Order Comment: Speci men Type: BLOOD SPECIMEN Ordering Facility: [facility] Address: [address] [place] [address] Performed By: #### 2 777-1, , #### [facility] CLIA [id number] [address] [place] [address] [place] Urinalysis complete panel (U )on 10-29-2023 Bacteria LM.HPF (Urine sed) [#/Area] Negative Normal Negative [facility] Comment on above: Order Comment: Speci men Type: BLOOD SPECIMEN Ordering Facility: [facility] Address: [address] [place] [address] Performed By: #### 2 777-1, , #### [facility] CLIA [id number] [address] [place] [address] [place] Bilirubin Ql (U) Negative Normal Negative [facility] Comment on above: Order Comment: Speci men Type: BLOOD SPECIMEN Ordering Facility: [facility] Address: [address] [place] [address] Performed By: #### 2 777-1, 73235-0, #### [facility] CLIA [id number] [address] [place] [address] [place] Clarity (Unsp spec) Clear Normal Clear [facility] Comment on above: Order Comment: Speci men Type: BLOOD SPECIMEN Ordering Facility: [facility] Address: [address] [place] [address] Performed By: #### 2 777-1, 21237-6, #### [facility] CLIA [id number] [address] [place] [address] [place] Color (U) Yellow Normal Yellow [facility] Comment on above: Order Comment: Speci men Type: BLOOD SPECIMEN Ordering Facility: [facility] Address: [address] [place] [address] Performed By: #### 2 777-1, 13528-7, #### [facility] CLIA [id number] [address] [place] [address] [place] Epithelial cells LM.HPF (Urine sed) [#/Area] None Seen Normal [facility] Comment on above: Order Comment: Speci men Type: BLOOD SPECIMEN Ordering Facility: [facility] Address: [address] [place] [address] Performed By: #### 2 777-1, , #### [facility] CLIA [id number] [address] [place] [address] [place] Glucose Test strip (U) [Mass/Vol] Negative Normal Negative [facility] Comment on above: Order Comment: Speci men Type: BLOOD SPECIMEN Ordering Facility: [facility] Address: [address] [place] [address] Performed By: #### 2 777-1, 01594-1, #### [facility] CLIA [id number] [address] [place] [address] [place] Hemoglobin Ql (U) 2+ Abnormal Negative [facility] Comment on above: Order Comment: Speci men Type: BLOOD SPECIMEN Ordering Facility: [facility] Address: [address] [place] [address] Performed By: #### 2 777-1, 45506-5, #### [facility] CLIA [id number] [address] [place], [place] [address] [place] Hyaline casts (Urine sed) [#/Area] 0 /[LPF] Normal 0 /LPF [facility] Comment on above: Order Comment: Speci men Type: BLOOD SPECIMEN Ordering Facility: [facility] Address: [address] [place] [address] Performed By: #### 2 777-1, 29585-2, #### [facility] CLIA [id number] [address] [place] [address] [place] Ketones Ql (U) Negative Normal Negative [facility] Comment on above: Order Comment: Speci men Type: BLOOD SPECIMEN Ordering Facility: [facility] Address: [address] [place] [address] Performed By: #### 2 777-1, 09059-8, #### [facility] CLIA [id number] [address] [place] [address] [place] Leukocyte esterase Test strip Ql (U) Negative Normal Negative [facility] Comment on above: Order Comment: Speci men Type: BLOOD SPECIMEN Ordering Facility: [facility] Address: [address] [place] [address] Performed By: #### 2 777-1, 36080-8, #### [facility] CLIA [id number] [address] [place], [place] [address] [place] Nitrite Ql (U) Negative Normal Negative [facility] Comment on above: Order Comment: Speci men Type: BLOOD SPECIMEN Ordering Facility: [facility] Address: [address] [place] [address] Performed By: #### 2 777-1, 26609-9, #### [facility] CLIA [id number] [address] [place] [address] [place] pH (U) 6.5 [pH] Normal <8.5 [facility] Comment on above: Order Comment: Speci men Type: BLOOD SPECIMEN Ordering Facility: [facility] Address: [address] [place] [address] Performed By: #### 2 777-1, , #### [facility] CLIA [id number] [address] [place] [address] [place] Protein (U) [Mass/Vol] Trace Abnormal Negative [facility] Comment on above: Order Comment: Speci men Type: BLOOD SPECIMEN Ordering Facility: [facility] Address: [address] [place] [address] Performed By: #### 2 777-1, , #### [facility] CLIA [id number] [address] [place] [address] [place] RBC LM.HPF (Urine sed) [#/Area] 6-10 /HPF Abnormal 0-2 /HPF [facility] Comment on above: Order Comment: Speci men Type: BLOOD SPECIMEN Ordering Facility: [facility] Address: [address] [place] [address] Performed By: #### 2 777-1, , #### [facility] CLIA [id number] [address] [place] [address] [place] Specific gravity (U) [Rel density] 1.021 Normal 1.005-1.030 [facility] Comment on above: Order Comment: Speci men Type: BLOOD SPECIMEN Ordering Facility: [facility] Address: [address] [place] [address] Performed By: #### 2 777-1, 83158-8, #### [facility] CLIA [id number] [address] [place], [place] [address] [place] Urobilinogen Ql (U) 0.2 EU/dL Normal 0.2-1.0 EU/dL [facility] Comment on above: Order Comment: Speci men Type: BLOOD SPECIMEN Ordering Facility: [facility] Address: [address] [place] [address] Performed By: #### 2 777-1, 03364-1, #### [facility] CLIA [id number] [address] [place] [address] [place] WBC LM.HPF (Urine sed) [#/Area] 0-5 /HPF Normal 0-5 /HPF [facility] Comment on above: Order Comment: Speci men Type: BLOOD SPECIMEN Ordering Facility: [facility] Address: [address] [place] [address] Performed By: #### 2 777-1, 24234-3, #### [facility] CLIA [id number] [address] [place] [address] [place] XR CHEST 1V [...] are unremarkable. Other: . IMPRESSION: See result. [employer]: SUSI Transcribe Date/Time: Oct 29 2023 12:20A Dictated by : SHEA WORTHY MD This examination was interpreted and the report reviewed and electronically signed by: SHEA WORTHY MD on Oct 29 2023 12:22AM EST [id number] N Normal [facility] aPTT PPPon 10-29-2023 aPTT Coag (PPP) [Time] 26.3 s Normal 23.0-32.4 [facility] Comment on above: Order Comment: Speci men Type: BLOOD SPECIMEN Ordering Facility: [facility] Address: [address] [place] [address] Performed By: #### 2 777-1, 82160-0, #### [facility] CLIA [id number] [address] [place] [address] [place] Basic metabolic 2000 panelon 10-28-2023 Anion gap [Moles/Vol] 12 mmol/L Normal 9-18 [facility] Comment on above: Order Comment: Speci men Type: BLOOD SPECIMEN Ordering Facility: [facility] Address: [address] [place] [address] Performed By: #### 2 777-1, 69767-4, #### [facility] CLIA [id number] [address] [place] [address] [place] Calcium [Mass/Vol] 7.8 mg/dL Low 8.5-10.2 [facility] Comment on above: Order Comment: Speci men Type: BLOOD SPECIMEN Ordering Facility: [facility] Address: [address] [place] [address] Performed By: #### 2 777-1, 12224-0, #### [facility] CLIA [id number] [address] [place] [address] [place] Chloride [Moles/Vol] 110 mmol/L High 97-105 [facility] Comment on above: Order Comment: Speci men Type: BLOOD SPECIMEN Ordering Facility: [facility] Address: [address] [place] [address] Performed By: #### 2 777-1, 77762-6, #### [facility] CLIA [id number] [address] [place] [address] [place] CO2 [Moles/Vol] 15 mmol/L Low 22-30 [facility] Comment on above: Order Comment: Speci men Type: BLOOD SPECIMEN Ordering Facility: [facility] Address: [address] [place] [address] Performed By: #### 2 777-1, 70747-1, #### [facility] CLIA [id number] [address] [place] [address] [place] Creatinine [Mass/Vol] 0.72 mg/dL Low 0.73-1.22 [facility] Comment on above: Order Comment: Speci men Type: BLOOD SPECIMEN Ordering Facility: [facility] Address: [address] [place] [address] Performed By: #### 2 777-1, 24047-0, #### [facility] CLIA [id number] [address] [place] [address] [place] Creatinine and Glomerular filtration rate.predicted panel (S/P/Bld) 125 mL/min/1.73m??? Normal >=60 [facility] Comment on above: Order Comment: Speci men Type: BLOOD SPECIMEN Ordering Facility: [facility] Address: [address] [place] [address] Result Comment: Lor mated Glomerular Filtration Rate [...] actual GFR. Performed By: #### 2 777-1, 72204-9, #### [facility] CLIA [id number] [address] [place] [address] [place] Glucose [Mass/Vol] 116 mg/dL High 74-99 [facility] Comment on above: Order Comment: Speci men Type: BLOOD SPECIMEN Ordering Facility: [facility] Address: [address] [place] [address] Result Comment: The [place] [employer] (ADA) provides guidance for cutoff [...] Standards of Medical Care in Diabetes 2016, [place] [employer]. Diabetes Care. 2016.39(Suppl 1). Performed By: #### 2 777-1, 37632-5, #### [facility] CLIA [id number] [address] [place] [address] [place] Potassium [Moles/Vol] 3.9 mmol/L Normal 3.7-5.1 [facility] Comment on above: Order Comment: Speci men Type: BLOOD SPECIMEN Ordering Facility: [facility] Address: [address] [place] [address] Performed By: #### 2 777-1, 81040-1, #### [facility] CLIA [id number] [address] [place] [address] [place] Sodium [Moles/Vol] 137 mmol/L Normal 136-144 [facility] Comment on above: Order Comment: Speci men Type: BLOOD SPECIMEN Ordering Facility: [facility] Address: [address] [place] [address] Performed By: #### 2 777-1, 47599-2, #### [facility] CLIA [id number] [address] [place], [place] [address] [place] Urea nitrogen [Mass/Vol] 17 mg/dL Normal 9-24 [facility] Comment on above: Order Comment: Speci men Type: BLOOD SPECIMEN Ordering Facility: [facility] Address: [address] [place] [address] Performed By: #### 2 777-1, , #### [facility] CLIA [id number] [address] [place], [place] [address] [place] CBC W Auto Differential pane l (Bld)on 10-28-2023 Basophils (Bld) [#/Vol] 10*3/uL Normal <0.11 [facility] Comment on above: Order Comment: Speci men Type: BLOOD SPECIMEN Ordering Facility: [facility] Address: [address] [place] [address] Performed By: #### 2 777-1, , #### [facility] CLIA [id number] [address] [place] [address] [place] Basophils/100 WBC (Bld) 0.1 % Normal [facility] Comment on above: Order Comment: Speci men Type: BLOOD SPECIMEN Ordering Facility: [facility] Address: [address] [place] [address] Performed By: #### 2 777-1, , #### [facility] CLIA [id number] [address] [place], [place] [address] [place] Differential cell count method Nom (Bld) Auto Normal [facility] Comment on above: Order Comment: Speci men Type: BLOOD SPECIMEN Ordering Facility: [facility] Address: [address] [place] [address] Performed By: #### 2 777-1, 65439-4, #### [facility] CLIA [id number] [address] [place] [address] [place] Eosinophils (Bld) [#/Vol] 10*3/uL Normal <0.46 [facility] Comment on above: Order Comment: Speci men Type: BLOOD SPECIMEN Ordering Facility: [facility] Address: [address] [place] [address] Performed By: #### 2 777-1, 75402-9, #### [facility] CLIA [id number] [address] [place] [address] [place] Eosinophils/100 WBC (Bld) 0.0 % Normal [facility] Comment on above: Order Comment: Speci men Type: BLOOD SPECIMEN Ordering Facility: [facility] Address: [address] [place] [address] Performed By: #### 2 777-1, 45890-9, #### [facility] CLIA [id number] [address] [place] [address] [place] Erythrocyte distribution width (RBC) [Ratio] 14.4 % Normal 11.5-15.0 [facility] Comment on above: Order Comment: Speci men Type: BLOOD SPECIMEN Ordering Facility: [facility] Address: [address] [place] [address] Performed By: #### 2 777-1, 71457-2, #### [facility] CLIA [id number] [address] [place] [address] [place] Hematocrit (Bld) [Volume fraction] 38.3 % Low 39.0-51.0 [facility] Comment on above: Order Comment: Speci men Type: BLOOD SPECIMEN Ordering Facility: [facility] Address: [address] [place] [address] Performed By: #### 2 777-1, 42766-8, #### [facility] CLIA [id number] [address] [place] [address] [place] Hemoglobin (Bld) [Mass/Vol] 12.0 g/dL Low 13.0-17.0 [facility] Comment on above: Order Comment: Speci men Type: BLOOD SPECIMEN Ordering Facility: [facility] Address: [address] [place] [address] Performed By: #### 2 777-1, 13082-9, #### [facility] CLIA [id number] [address] [place] [address] [place] Immature granulocytes (Bld) [#/Vol] 0.08 10*3/uL Normal <0.10 [facility] Comment on above: Order Comment: Speci men Type: BLOOD SPECIMEN Ordering Facility: [facility] Address: [address] [place] [address] Performed By: #### 2 777-1, 04250-5, #### [facility] CLIA [id number] [address] [place] [address] [place] Immature granulocytes/100 WBC (Bld) 0.6 % Normal [facility] Comment on above: Order Comment: Speci men Type: BLOOD SPECIMEN Ordering Facility: [facility] Address: [address] [place] [address] Performed By: #### 2 777-1, 41492-8, #### [facility] CLIA [id number] [address] [place] [address] [place] Lymphocytes (Bld) [#/Vol] 1.19 10*3/uL Normal 1.00-4.00 [facility] Comment on above: Order Comment: Speci men Type: BLOOD SPECIMEN Ordering Facility: [facility] Address: [address] [place] [address] Performed By: #### 2 777-1, 85061-2, #### [facility] CLIA [id number] [address] [place] [address] [place] Lymphocytes/100 WBC (Bld) 8.2 % Normal [facility] Comment on above: Order Comment: Speci men Type: BLOOD SPECIMEN Ordering Facility: [facility] Address: [address] [place] [address] Performed By: #### 2 777-1, 62861-0, #### [facility] CLIA [id number] [address] [place] [address] [place] MCH (RBC) [Entitic mass] 26.5 pg Normal 26.0-34.0 [facility] Comment on above: Order Comment: Speci men Type: BLOOD SPECIMEN Ordering Facility: [facility] Address: [address] [place] [address] Performed By: #### 2 777-1, 67248-0, #### [facility] CLIA [id number] [address] [place] [address] [place] MCHC (RBC) [Mass/Vol] 31.3 g/dL Normal 30.5-36.0 [facility] Comment on above: Order Comment: Speci men Type: BLOOD SPECIMEN Ordering Facility: [facility] Address: [address] [place] [address] Performed By: #### 2 777-1, 04322-1, #### [facility] CLIA [id number] [address] [place] [address] [place] MCV (RBC) [Entitic vol] 84.5 fL Normal 80.0-100.0 [facility] Comment on above: Order Comment: Speci men Type: BLOOD SPECIMEN Ordering Facility: [facility] Address: [address] [place] [address] Performed By: #### 2 777-1, 82198-2, #### [facility] CLIA [id number] [address] [place] [address] [place] Monocytes (Bld) [#/Vol] 1.48 10*3/uL High <0.87 [facility] Comment on above: Order Comment: Speci men Type: BLOOD SPECIMEN Ordering Facility: [facility] Address: [address] [place] [address] Performed By: #### 2 777-1, 50409-3, #### [facility] CLIA [id number] [address] [place] [address] [place] Monocytes/100 WBC (Bld) 10.2 % Normal [facility] Comment on above: Order Comment: Speci men Type: BLOOD SPECIMEN Ordering Facility: [facility] Address: [address] [place] [address] Performed By: #### 2 777-1, 22012-8, #### [facility] CLIA [id number] [address] [place] [address] [place] Neutrophils (Bld) [#/Vol] 11.69 10*3/uL High 1.45-7.50 [facility] Comment on above: Order Comment: Speci men Type: BLOOD SPECIMEN Ordering Facility: [facility] Address: [address] [place] [address] Performed By: #### 2 777-1, 96612-5, #### [facility] CLIA [id number] [address] [place] [address] [place] Neutrophils/100 WBC (Bld) 80.9 % Normal [facility] Comment on above: Order Comment: Speci men Type: BLOOD SPECIMEN Ordering Facility: [facility] Address: [address] [place] [address] Performed By: #### 2 777-1, 67105-7, #### [facility] CLIA [id number] [address] [place] [address] [place] Nucleated RBC (Bld) [#/Vol] 10*3/uL Normal <0.01 [facility] Comment on above: Order Comment: Speci men Type: BLOOD SPECIMEN Ordering Facility: [facility] Address: [address] [place] [address] Performed By: #### 2 777-1, 79782-4, #### [facility] CLIA [id number] [address] [place] [address] [place] Nucleated RBC/100 WBC (Bld) [Ratio] 0.0 /100 WBC Normal [facility] Comment on above: Order Comment: Speci men Type: BLOOD SPECIMEN Ordering Facility: [facility] Address: [address] [place] [address] Performed By: #### 2 777-1, 76504-9, #### [facility] CLIA [id number] [address] [place] [address] [place] Platelet mean volume (Bld) [Entitic vol] 9.3 fL Normal 9.0-12.7 [facility] Comment on above: Order Comment: Speci men Type: BLOOD SPECIMEN Ordering Facility: [facility] Address: [address] [place] [address] Performed By: #### 2 777-1, , #### [facility] CLIA [id number] [address] [place] [address] [place] Platelets (Bld) [#/Vol] 180 10*3/uL Normal 150-400 [facility] Comment on above: Order Comment: Speci men Type: BLOOD SPECIMEN Ordering Facility: [facility] Address: [address] [place] [address] Performed By: #### 2 777-1, 14066-7, #### [facility] CLIA [id number] [address] [place] [address] [place] RBC (Bld) [#/Vol] 4.53 10*6/uL Normal 4.20-6.00 [facility] Comment on above: Order Comment: Speci men Type: BLOOD SPECIMEN Ordering Facility: [facility] Address: [address] [place] [address] Performed By: #### 2 777-1, 30832-8, #### [facility] CLIA [id number] [address] [place] [address] [place] WBC (Bld) [#/Vol] 14.46 10*3/uL High 3.70-11.00 [facility] Comment on above: Order Comment: Speci men Type: BLOOD SPECIMEN Ordering Facility: [facility] Address: [address] [place] [address] Performed By: #### 2 777-1, 18345-0, #### [facility] CLIA [id number] [address] [place] [address] [place] HISTORY PHYSICALon HISTORY PHYSICAL HNO ID: [id number] Author: SAMUEL ROBIN MD Service: General Surgery [...] No a (more content not included)... Normal [facility] Magnesium SerPl-mCncon 10-27 Magnesium [Mass/Vol] 1.8 mg/dL Normal 1.7-2.3 [facility] Comment on above: Order Comment: Speci yogesh Type: BLOOD SPECIMEN Ordering Facility: [facility] Address: [address] [place] [address] Performed By: #### 2 777-1, 03729-8, #### [facility] CLIA [id number] [address] [place] [address] [place] PT panel Coag (PPP)on 2023 INR Coag (PPP) [Relative time] 1.2 {INR} Normal 0.9-1.3 [facility] Comment on above: Order Comment: Speci yogesh Type: BLOOD SPECIMEN Ordering Facility: [facility] Address: [address] [place] [address] Result Comment: Winnie min K Antagonist (VKA) Therapeutic Range: INR 2 to 3 (Target INR of 2.5) Note: For patients treated with VKA drugs, such as warfarin, the [place] [employer] 2012 Guideline recommends [...] Chest 2012, 141:7S-47S Jonny RA et al. [facility] 2017, 70: 252-289 Performed By: #### 2 777-1, 32951-6, 85209-5 #### [facility] CLIA [id number] [address] [place] [address] [place] PT Coag (PPP) [Time] 12.3 s Normal 9.7-13.0 [facility] Comment on above: Order Comment: Speci men Type: BLOOD SPECIMEN Ordering Facility: [facility] Address: [address] [place] [address] Performed By: #### 2 777-1, 97780-8, #### [facility] CLIA [id number] [address] [place] [address] [place] Phosphate SerPl-mCncon 10-27 Phosphate [Mass/Vol] 3.2 mg/dL Normal 2.7-4.8 [facility] Comment on above: Order Comment: Speci men Type: BLOOD SPECIMEN Ordering Facility: [facility] Address: [address] [place] [address] Performed By: #### 2 777-1, 47102-7, #### [facility] CLIA [id number] [address] [place] [address] [place] SEPSIS LACTATEon 10-28-2023 Lactate [Moles/Vol] 2.0 mmol/L Normal <=2.0 [facility] Comment on above: Order Comment: Speci men Type: BLOOD SPECIMENOrdering Facility: [facility] Address: [address] [place] [address] Performed By: #### S LACT ####[facility] [id number] [place] [address] [place] TYPE + SCREENon 10-28-2023 ABO A Normal [facility] Comment on above: Order Comment: Speci men Type: BLOOD SPECIMEN Ordering Facility: [facility] Address: [address] [place] [address] Performed By: #### 2 4321-2, 81793-9, 2777-1 #### [facility] CLIA [id number] [address] [id number] [address] [place] HISTORICAL AB SCR STATUS Negative Normal [facility] Comment on above: Order Comment: Speci men Type: BLOOD SPECIMEN Ordering Facility: [facility] Address: [address] [place], [place] [address] Performed By: #### 2 4321-2, , 2776-08 #### [facility] CLIA [id number] [address] [place], [place] [address] [place] Rh Nom (Bld) Positive Normal [facility] Comment on above: Order Comment: Speci men Type: BLOOD SPECIMEN Ordering Facility: [facility] Address: [address] [place] [address] Performed By: #### 2 4321-2, , 2776-08 #### [facility] CLIA [id number] [address] [place] [address] [place] TYPE AND SCREEN EXPIRATION 10/31/2023 23:59 Normal [facility] Comment on above: Order Comment: Speci men Type: BLOOD SPECIMEN Ordering Facility: [facility] Address: [address] [place] [address] Performed By: #### 2 4321-2, , 2776-08 #### [facility] CLIA [id number] [address] [place], [place] [address] [place] XR ABDOMEN 1V [...] right lower quadrant on the outside CT). [employer]: SUSI Transcribe Date/Time: Oct 28 2023 5:30P Dictated by : WALTER BURGER MD This examination was interpreted and the report reviewed and electronically signed by: WALTER BURGER MD on Oct 28 2023 5:47PM EST [id number] N Normal [facility] Anesthesia Preprocedure Eval uationon 07-16-2023 Bag Machine Operator Helper Authentication Interface Message Text ASA: 2 No [...] were discussed with the patient and/or legal group sales representative. The risks, benefits and alternatives were reviewed. Questions regarding anesthesia were answered. Patient and/or legal group sales representative knows such anesthetics and procedures may be performed by Resident physicians, Certified Anesthesiologist Assistants, or Certified Nurse Anesthetists under the supervision of a physician. The patient /or the patient's legal group sales representative agree with the plan for [...] with his caregiver who understood. Normal [facility] BASIC METABOLIC PANELon 11-2 -2022 Anion gap [Moles/Vol] 15 mmol/L Normal 10-20 [facility] Comment on above: Performed By: #### C H8 ####[facility] [address] [place] [address], [address] Calcium [Mass/Vol] 9.6 mg/dL Normal 8.6-10.3 [facility] Comment on above: Result Comment: Note updated reference ranges. Performed By: #### C H8 ####[facility] [address] [place] [address], [address] Chloride [Moles/Vol] 104 mmol/L Normal 98-107 [facility] Comment on above: Result Comment: Note updated reference ranges. Performed By: #### C H8 ####[facility] [address] [place] [address], [address] CO2 [Moles/Vol] 25 mmol/L Normal 21-31 [facility] Comment on above: Result Comment: Note updated reference ranges. Performed By: #### C H8 ####[facility] [address] [place] [address], [address] Creatinine [Mass/Vol] 0.94 mg/dL Normal 0.70-1.30 [facility] Comment on above: Result Comment: Note updated reference ranges. Performed By: #### C H8 ####[facility] [address] [place] [address], [address] ESTIMATED GFR (CKD-EPI) 112 mL/min/1.73sqm Normal >=60 [facility] Comment on above: Result Comment: 2020 [...] Inclusion of Race in Diagnosing Kidney Disease. [place] Journal of Kidney Diseases 202;79(2):268-88.e1. 2. N Engl J Med 1 Vol. 385 Issue 19 Pages [phone] Performed By: #### C H8 ####[facility] [address] [place], [address] Glucose [Mass/Vol] 84 mg/dL Normal 74-109 [facility] Comment on above: Performed By: #### C H8 ####[facility] [address] [place], [address] Potassium [Moles/Vol] 4.9 mmol/L Normal 3.5-5.0 [facility] Comment on above: Result Comment: Note updated reference ranges. Note updated reference ranges. Performed By: #### C H8 ####[facility] [address] [place], [address] Sodium [Moles/Vol] 139 mmol/L Normal 136-145 [facility] Comment on above: Result Comment: Note updated reference ranges. Performed By: #### C H8 ####[facility] [address] [place], [address] Urea nitrogen [Mass/Vol] 21 mg/dL Normal 7-25 [facility] Comment on above: Result Comment: Note updated reference ranges. Performed By: #### C H8 ####[facility] [address] [place], [address] Basic metabolic 2000 panelOr dered By: Vandana Ace on 07-16-2023 Anion gap [Moles/Vol] 15 mmol/L 10 - 20 Met roHeal Calcium [Mass/Vol] 9.6 mg/dL 8.6 - 10. [...] Inclusion of Race in Diagnosing Kidney Disease. [place] Journal of Kidney Diseases 2021;79(2):268-88.e1. 2. N Engl J Med 1 Vol. 385 Issue 19 Pages 1732-1266 Glucose [Mass/Vol] 84 mg/dL 74 - 109 [...] ce ranges. [facility] Operative Noteon 07-16 Bag Machine Operator Helper Authentication Interface Message Text Cancelled Case was cancelled. Pt has very low heart rate, that compromises GA/ per anesthesia team. Normal [facility] CBC WITH DIFFERENTIALon 06-21 Basophils (Bld) [#/Vol] 0.10 10*3/uL Normal 0.00-0.20 [facility] Comment on above: Performed By: #### C BCDSAT ####[facility] [address] [place], [address] Basophils/100 WBC (Bld) 0.6 % Normal <=1.9 [facility] Comment on above: Performed By: #### C BCDSAT ####[facility] [address] [place] [address], [address] Eosinophils (Bld) [#/Vol] 0.30 10*3/uL Normal 0.00-0.70 [facility] Comment on above: Performed By: #### C BCDSAT ####[facility] [address] [place] [address], [address] Eosinophils/100 WBC (Bld) 3.1 % Normal 0.1-4.0 [facility] Comment on above: Performed By: #### C BCDSAT ####[facility] [address] [place] [address], [address] Erythrocyte distribution width (RBC) [Ratio] 14.2 % Normal 11.5-14.5 [facility] Comment on above: Performed By: #### C TRAYDSAT ####[facility] [address] [place] [address], [address] Hematocrit (Bld) [Volume fraction] 38.4 % Low 41.0-53.0 [facility] Comment on above: Performed By: #### C BCDSAT ####[facility] [address] [place] [address], [address] Hemoglobin (Bld) [Mass/Vol] 12.6 g/dL Low 13.9-16.3 [facility] Comment on above: Performed By: #### C BCDSAT ####[facility] [address] [place] [address], [address] Lymphocytes (Bld) [#/Vol] 3.20 10*3/uL Normal 1.00-4.80 [facility] Comment on above: Performed By: #### C BCDSAT ####[facility] [address] [place] [address], [address] Lymphocytes/100 WBC (Bld) 36.8 % Normal 24.0-44.0 [facility] Comment on above: Performed By: #### C BCDSAT ####[facility] [address] [place] [address], [address] MCH (RBC) [Entitic mass] 27.4 pg Normal 26.0-34.0 [facility] Comment on above: Performed By: #### C BCDSAT ####[facility] [address] [place] [address], [address] MCHC (RBC) [Mass/Vol] 32.8 g/dL Normal 32.0-35.9 [facility] Comment on above: Performed By: #### C BCDSAT ####[facility] [address] [place] [address], [address] MCV (RBC) [Entitic vol] 84 fL Normal 80-100 [facility] Comment on above: Performed By: #### C BCDSAT ####[facility] [address] [place] [address], [address] Monocytes (Bld) [#/Vol] 0.80 10*3/uL Normal 0.20-1.00 [facility] Comment on above: Performed By: #### C BCDSAT ####[facility] [address] [place] [address], [address] Monocytes/100 WBC (Bld) 8.9 % Normal 2.0-11.0 [facility] Comment on above: Performed By: #### C BCDSAT ####[facility] [address] [place] [address], [address] Neutrophils (Bld) [#/Vol] 4.40 10*3/uL Normal 1.50-8.00 [facility] Comment on above: Performed By: #### C BCDSAT ####[facility] [address] [place] [address], 18[address] Neutrophils/100 WBC (Bld) 50.6 % Normal 31.0-76.0 [facility] Comment on above: Performed By: #### C BCDSAT ####[facility] [address] [place] [address], [address] Nucleated RBC (Bld) [#/Vol] 0.1 10*3/uL Normal [facility] Comment on above: Performed By: #### C BCDSAT ####[facility] [address] [place] [address], 19836 Nucleated RBC (Bld) [#/Vol] 0.01 10*3/uL Normal [facility] Comment on above: Performed By: #### C BCDSAT ####[facility] [address] [place] [address], 237[address] Platelet mean volume (Bld) [Entitic vol] 9.1 fL Normal 7.5-11.2 [facility] Comment on above: Performed By: #### C TRAYDSAT ####[facility] [address] [place] [address], [address] PLT Normal [facility] Comment on above: Result Comment: Plat elet cannot be quantified due to the presence of platelet clumps. Platelet estimate appears normal. Performed By: #### C BCDSAT ####[facility] [address] [place] [address], [address] RBC (Bld) [#/Vol] 4.59 10*6/uL Normal 4.50-5.90 [facility] Comment on above: Performed By: #### C BCDSAT ####[facility] [address] [place] [address], [address] WBC (Bld) [#/Vol] 8.6 10*3/uL Normal 4.5-11.5 [facility] Comment on above: Performed By: #### C BCDSAT ####[facility] [address] [place] [address], [address]28[address] Basophils (Bld) [#/Vol] 0.10 10*3/uL 0.00 - [...] 12.6 g/dL Low 13.9 - 16.3 g/dL [facility] Interpretation and review of laboratory results Abnormal [...] [#/Vol] 0.80 10*3/uL 0.20 - 1.00 K/uL [facility] Monocytes/100 WBC (Bld) 8.9 % 2.0 - 11.0 % [facility] Neutrophils (Bld) [#/Vol] 4.40 10*3/uL 1.50 - 8.00 K/uL [facility] Neutrophils/100 WBC (Bld) 50.6 % 31.0 - 76.0 % [facility] Nucleated RBC (Bld) [#/Vol] 0.01 10*3/uL [facility] Nucleated RBC/100 WBC (Bld) [Ratio] 0.1 % [facility] Platelet mean volume (Bld) [Entitic vol] 9.1 fL 7.5 - 11.2 fL [facility] Platelets (Bld) [#/Vol] [facility] Comment on above: Platelet cannot be q uantified due to the presence of platelet clumps. Platelet estimate appears normal. RBC (Bld) [#/Vol] 4.59 10*6/uL [facility] WBC (Bld) [#/Vol] 8.6 10*3/uL 4.5 - 11.5 K/uL [facility] HEAD W/O CONTRASTon 07-16 CT [...] left caudate nucleus. MACRO: None Normal [facility] CT Head WO contrastOrdered B y: David Kay on 07-16-2023 CT DLP 1126.71 (mGy.cm) [facility] Work Phone: CT Series HEAD W/O,HEAD W/O [facility] Work Phone: CTDI VOL 0.34 (mGy),47.31 (mGy) [facility] Work Phone: PHANTOM TYPE IEC Head Dosimetry Phantom,IEC Head Dosimetry Phantom [facility] Work Phone: [facility] Work Phone: CT Head WO contraston 2022 [...] the left caudate nucleus. MACRO: None RADIOLOGY KayDavid DO - 07/16/2023 EXAMINATION: CT HEAD W/O [...] in the left caudate nucleus. MACRO: None [facility] Radiology Study observation (narrative) [facility] ED Noteson 07-16-2023 Bag Machine Operator Helper Authentication Interface Message Text Permission treat given from Cate legal guardian Normal [facility] ED Provider Noteson 07-16-20 Bag Machine Operator Helper Authentication Interface Message Text EMERGENCY DEPARTMENT - VISIT NOTE --------- HISTORY OF PRESENT ILLNESS ----- Chief Complaint Patient presents with bradycardia Low HR (33) HIPAA: Verbal permission granted from patient to discuss case, including protected health information, in front of family / friends in room at the time of the evaluation. Senior Manufacturing Technician: not needed - patient preferred language is Congolese. History from Independent Historian: Caregiver reports Pleasant [...] decision-mariusz (more content not included)... Normal [facility] MAGNESIUMon 07-16-2023 Magnesium [Mass/Vol] 2.1 mg/dL Normal 1.6-2.8 [facility] Comment on above: Performed By: #### M G #### [facility] [address] [place], [address] Interpretation and review of laboratory results [facility] Magnesium [Mass/Vol] 2.1 mg/dL 1.6 - 2 .8 mg/dL [facility] OP Noteon 07-16-2023 Bag Machine Operator Helper Authentication Interface Message Text Cancelled Case was cancelled. Pt has very low heart rate, that compromises GA/ per anesthesia team. Normal [facility] Progress Noteson 07-16-2023 Bag Machine Operator Helper Authentication Interface Message Text ----- Sunday, July 16, 2023 at 1:56:53 PM ----- ----- Provider: [id number] Resident Fortino -- Clinic: [facility] ----- Patient was scheduled for OR today Patient had Bradycardia and hypotension for unknown reasons. Anaesthesia asked to cancel the OR for this patient today. NV. OR ----- Signed on Monday, July 17, 2023 at 8:18:55 AM ----- ----- Provider: [id number] Jed Alicea DDS -- Clinic: [facility] ----- Normal [facility] Bag Machine Operator Helper Authentication Interface Message Text 0800: pt's HR in the 30s. Per caregiver his behavior is baseline. Spoke with nurse at pt's residence and she stated baseline HR is in the 70s. Dr Olmstead aware and at bedside. EKG performed. Pt transferred to ED for further evaluation. Normal [facility] Lithiumon 07-06-2023 [place] [Moles/Vol] 0.9 mmol/L Invalid Interpretation Code 0.5-1.2 [facility] Comment on above: Result Comment: A co ncentration of 0.5-0.8 mmol/L is advised for long-term use; concentrations of up to 1.2 mmol/L may be necessary during acute treatment. Detection Limit = 0.1 <0.1 indicates None Detected Performed at: [address] [id number] PhD Agata Narayan Performed By: #### 2 315276, 7798854, 7863875, 6109937, 516357032, 1286300, 4724978, 64583233, 3527279 ####[facility] [address] [place] [address] CBC w/Indiceson 07-04-2023 Erythrocyte distribution width (RBC) [Ratio] 13.8 % Normal 10.9-14.2 [facility] Comment on above: Performed By: #### 2 691646, 3697766, 8594838, 8627394, 802438012, 9326970, 5047240, 25810967, 7284638 #### [facility] [address] [place] [address] Hematocrit (Bld) [Volume fraction] 38.1 % Normal 37.7-49.0 [facility] Comment on above: Performed By: #### 2 245336, 4488829, 1954423, 9732345, 478086931, 4550328, 1773947, 09644375, 9692757 #### [facility] [address] [place] [address] Hemoglobin (Bld) [Mass/Vol] 12.7 g/dL Low 13.5-17.5 [facility] Comment on above: Performed By: #### 2 922763, 0852407, 0144312, 0291073, 352471677, 3614244, 8106920, 52366986, 2302874 #### [facility] [address] [place] [address] MCH (RBC) [Entitic mass] 27.6 pg Normal 27.0-34.0 [facility] Comment on above: Performed By: #### 2 634444, 0418407, 4578530, 6249401, 915304371, 6557889, 9259060, 88176759, 8927116 #### [facility] [address] [place] [address] MCHC (RBC) [Mass/Vol] 33.3 g/dL Normal 31.4-36.0 [facility] Comment on above: Performed By: #### 2 789832, 8950373, 6325117, 8756586, 609580284, 4792073, 5778011, 97027424, 6815113 #### [facility] [address] [place] [address] MCV (RBC) [Entitic vol] 83.0 fL Normal 80.0-100.0 [facility] Comment on above: Performed By: #### 2 948917, 2067025, 4897060, 3876202, 612360421, 1909601, 7860313, 33889731, 4920172 #### [facility] [address] [place] [address] Platelet mean volume (Bld) [Entitic vol] 8.5 fL Normal 6.4-10.8 [facility] Comment on above: Performed By: #### 2 965196, 6709718, 5288638, 4332371, 650272012, 5490949, 5169395, 12003402, 8392671 #### [facility] [address] [place] [address] Platelets (Bld) [#/Vol] 175.0 E9/L Normal 150.0-500.0 [facility] Comment on above: Performed By: #### 2 919669, 0526717, 8818507, 7721477, 791036377, 8273513, 6706362, 48482258, 5137131 #### [facility] [address] [place] [address] RBC (Bld) [#/Vol] 4.6 E12/L Normal 4.3-5.9 [facility] Comment on above: Performed By: #### 2 440005, 8149528, 8203555, 1973137, 245634100, 4573076, 5776559, 32775729, 9401679 #### [facility] [address] [place] [address] WBC corrected for nucl RBC Auto (Bld) [#/Vol] 5.9 E9/L Normal 4.0-11.0 [facility] Comment on above: Performed By: #### 2 029171, 7953747, 3900971, 9718492, 798083568, 3644930, 9006820, 58875970, 6175518 #### [facility] [address] [place] [address] CHEMISTRYOrdered By: SYSTEM SYSTEM on 07-04-2023 25-hydroxyvitamin D3 [Mass/Vol] 33.7 ng/mL Normal 30.0 - 100.0 ng/mL [facility] Comment on above: Interpretive Data: Vitamin D deficiency has been defined as a level of serum 25-OH vitamin D less than 20 ng/mL (1,2) by the [employer] and an Endocrine Society practice guideline. The Endocrine Society further defined vitamin D insufficiency as a level between 21 and 29 ng/mL (2). 1. IOM ([employer]). 2010. Dietary reference intakes for [...] 118 mL/min/1.73 m2 Normal >=59mL/min/1 .73 m2 [facility] Comment on above: Interpretive Data: [...] 07-04-2023 Albumin [Mass/Vol] 3.7 g/dL Normal 3.3-5.0 [facility] Comment on above: Performed By: #### 2 277154, 1935224, 2464598, 2195729, 509677726, 2574587, 3214533, 77262802, 5181191 #### [facility] [address] [place] [address] Albumin/Globulin (S) [Mass conc ratio] 1.0 Low 1.1-2.2 [facility] Comment on above: Performed By: #### 2 442768, 0961511, 9795790, 5400015, 015959570, 3124233, 6319226, 04218789, 1185905 #### [facility] [address] [place] [address] ALP [Catalytic activity/Vol] 37 Int._Unit/L Normal 21-98 [facility] Comment on above: Performed By: #### 2 426425, 7128972, 5587863, 6048116, 357562314, 8779383, 5605207, 59977840, 4284231 #### [facility] [address] [place] [address] ALT No additional P-5'-P [Catalytic activity/Vol] 15 Int._Unit/L Normal 6-46 [facility] Comment on above: Performed By: #### 2 463042, 9738319, 0993497, 9134070, 586546012, 9010746, 7203533, 95384179, 9853680 #### [facility] [address] [place] [address] Anion gap [Moles/Vol] 12 mmol/L Normal 6-16 [facility] Comment on above: Performed By: #### 2 076468, 0099524, 2210313, 8252551, 663682096, 5946342, 1478687, 44769862, 0848401 #### [facility] [address] [place] [address] AST [Catalytic activity/Vol] 22 Int._Unit/L Normal 5-43 [facility] Comment on above: Performed By: #### 2 429371, 6111703, 8404018, 5144444, 856226578, 7681361, 9557226, 14992014, 0533782 #### [facility] [address] [place] [address] Bilirubin [Mass/Vol] 0.1 mg/dL Normal 0.0-1.1 [facility] Comment on above: Performed By: #### 2 097293, 5760797, 0847048, 5971873, 743751605, 1704509, 2232359, 14691971, 1815058 #### [facility] [address] [place] [address] Calcium [Mass/Vol] 9.7 mg/dL Normal 8.9-11.1 [facility] Comment on above: Performed By: #### 2 613620, 9312966, 5467970, 7694499, 081216605, 6564290, 6069391, 99835813, 1798556 #### [facility] [address] [place] [address] Chloride [Moles/Vol] 108 mmol/L Normal 101-111 [facility] Comment on above: Performed By: #### 2 553901, 9640343, 3403407, 2914676, 401205013, 1424213, 6455854, 51671621, 7445503 #### [facility] [address] [place] [address] CO2 [Moles/Vol] 23 mmol/L Normal 21-31 [facility] Comment on above: Performed By: #### 2 624937, 3885998, 7251897, 6083175, 799819177, 7247882, 3670416, 37422626, 4079389 #### [facility] [address] [place] [address] Creatinine [Mass/Vol] 0.9 mg/dL Normal 0.5-1.3 [facility] Comment on above: Performed By: #### 2 661246, 9237406, 2835964, 0286276, 387289137, 2988790, 2301982, 83327783, 4456813 #### [facility] [address] [place] [address] Globulin (S) [Mass/Vol] 3.8 g/dL Normal 1.4-4.0 [facility] Comment on above: Performed By: #### 2 343330, 4068093, 1067425, 1531839, 724341136, 1674856, 9592340, 34817426, 6808864 #### [facility] [address] [place] [address] Glucose [Mass/Vol] 86 mg/dL Normal 55-199 [facility] Comment on above: Result Comment: If t his glucose result represents a fasting glucose, interpretation should refer to the following reference range: 55-99 mg/dL Performed By: #### 2 751119, 6260161, 4102683, 1976312, 378074675, 9229212, 5016453, 87175321, 3057440 #### [facility] [address] [place] [address] Potassium [Moles/Vol] 4.3 mmol/L Normal 3.5-5.3 [facility] Comment on above: Performed By: #### 2 048268, 9825659, 2201016, 3130298, 725329362, 9953224, 6100126, 96270296, 3696458 #### [facility] [address] [place] [address] Protein [Mass/Vol] 7.5 g/dL Normal 6.0-7.8 [facility] Comment on above: Performed By: #### 2 907130, 0170589, 4160194, 1153601, 523981167, 4285096, 0356096, 44198252, 0756817 #### [facility] [address] [place] [address] Sodium [Moles/Vol] 139 mmol/L Normal 135-145 [facility] Comment on above: Performed By: #### 2 710290, 8380002, 0813333, 3804347, 684980241, 7408140, 3305776, 03313117, 1775094 #### [facility] [address] [place] [address] Urea nitrogen [Mass/Vol] 20 mg/dL Normal 5-21 [facility] Comment on above: Performed By: #### 2 876150, 8515548, 2064980, 2784683, 800238829, 9208514, 5036004, 40357195, 4914876 #### [facility] [address] [place] [address] Urea nitrogen/Creatinine [Mass ratio] 22 No Units High 10-20 [facility] Comment on above: Performed By: #### 2 761676, 8965235, 1457850, 5830328, 912755333, 7875127, 6366579, 28076303, 3918252 #### [facility] [address] [place] [address] Free T4on 07-04-2023 Free T4 [Mass/Vol] 0.70 ng/dL Normal 0.58-1.64 [facility] Comment on above: Performed By: #### 2 574700, 2904105, 5049979, 0151473, 157927788, 1208847, 3061033, 20991830, 0668081 #### [facility] [address] [place] [address] HEMATOLOGYOrdered By: Jersey Arnett on 07-04-2023 Erythrocyte [...] 07-04-2023 Cholesterol [Mass/Vol] 145 mg/dL Normal 120-200 [facility] Comment on above: Performed By: #### 2 501750, 7369823, 4166856, 3039063, 936418499, 8485025, 3164684, 99439483, 5046331 #### [facility] [address] [place] [address] Cholesterol in HDL [Mass/Vol] 40 mg/dL Invalid Interpretation Code [facility] Comment on above: Result Comment: HDL > or equal to 60 mg/dL: Low cardiovascular risk HDL < 40 mg/dL : High cardiovascular risk Performed By: #### 2 452318, 9567182, 4355532, 4870052, 779209938, 7724149, 3707603, 09062293, 9240038 #### [facility] [address] [place] [address] Cholesterol in LDL [Mass/Vol] 86 mg/dL Normal <=129 [facility] Comment on above: Performed By: #### 2 462450, 9616318, 2467159, 6889626, 660660606, 6506573, 1584905, 95799189, 4545788 #### [facility] [address] [place] [address] Cholesterol in VLDL [Mass/Vol] 27 mg/dL Normal 7-40 [facility] Comment on above: Performed By: #### 2 280393, 8812398, 0638480, 1628720, 392637667, 9333532, 6563230, 37105271, 7409654 #### [facility] [address] [place] [address] Triglyceride [Mass/Vol] 133 mg/dL Normal <=149 [facility] Comment on above: Performed By: #### 2 330926, 5498309, 7538156, 4958984, 537414487, 9601114, 0732723, 20996025, 0094976 #### [facility] [address] [place] [address] Physician Orderon 07-04-2023 Physician Order [id number]# 1.00TIFF Normal [facility] TSHon 07-04-2023 TSH Qn 2.75 m[IU]/L Normal 0.34-5.60 [facility] Comment on above: Performed By: #### 2 680355, 0335825, 8413312, 1033769, 396734763, 9670771, 0885108, 72528715, 2371497 #### [facility] [address] [place] [address] Valproic Acidon 07-04-2023 Valproate [Moles/Vol] 79 microgram/mL Normal 50-99 [facility] Comment on above: Performed By: #### 2 912115, 6219906, 4175822, 3376985, 947851163, 1521375, 3002097, 24648692, 4631703 #### [facility] [address] [place] [address] Vitamin D 25 Hydroxyon 07-04 25-hydroxyvitamin D3 [Mass/Vol] 33.7 ng/mL Normal 30.0-100.0 [facility] Comment on above: Result Comment: Vit alfredo D deficiency has been defined as a level of serum 25-OH vitamin D less than 20 ng/mL (1,2) by the [place] [employer] and an Endocrine Society practice guideline. The Endocrine Society further defined vitamin D insufficiency as a level between 21 and 29 ng/mL (2). 1. IOM ([place] of [employer]). 2010. Dietary reference intakes for calcium and D. [place]: The National Academies Press. 2. Denia MF, Marcelino NC, Ann GARVEY, et al. Evaluation, treatment, and prevention of vitamin D deficiency: an Endocrine Society clinical practice guideline. JCEM. 2011 Feb; 96 (7):1911-30. Performed By: #### 2 [id number], [id number], [id number], [id number], [id number], [id number], [id number], [id number] #### [facility] [address] [place] [address] eGFRon 07-04-2023 GFR/1.73 sq M.predicted among non-blacks MDRD (S/P/Bld) [Vol rate/Area] 118 mL/min/1.73 m2 Normal >=59 [facility] Comment on above: Order Comment: Order added by Discern Expert. Result Comment: Liner Reroll Tender jenni kidney disease could be indicated at eGFR's of less than 60 mL/min/1.73m2. Kidney failure is indicated at less than 15 mL/min/1.73m2. Performed By: #### 2 [id number], [id number], [id number], [id number], [id number], [id number], [id number], [id number] #### [facility] [address] [place] [address] Telephone Encounteron 2022 Bag Machine Operator Helper Authentication Interface Message Text Informed Consent for dental surgery AND Anesthesia consent obtained and scanned into BitTorrent. Scheduled for surgery 07/16/2023. Normal [facility] BASIC METABOLIC PANELon 11-0 Anion gap [Moles/Vol] 16 mmol/L Normal 10-20 [facility] Comment on above: Performed By: #### C H8 #### [facility] [address] [place] [address], Calcium [Mass/Vol] 9.8 mg/dL Normal 8.4-10.4 [facility] Comment on above: Performed By: #### C H8 #### [facility] [address] [place] [address], Chloride [Moles/Vol] 106 mmol/L Normal 97-111 [facility] Comment on above: Performed By: #### C H8 #### [facility] [address] [place], [place], CO2 [Moles/Vol] 23 mmol/L Normal 21-30 [facility] Comment on above: Performed By: #### C H8 #### [facility] [address] [place] [address], Creatinine [Mass/Vol] 1.01 mg/dL Normal 0.80-1.30 [facility] Comment on above: Performed By: #### C H8 #### [facility] [address] [place] [address], ESTIMATED GFR (CKD-EPI) 103 mL/min/1.73sqm Normal >=60 [facility] Comment on above: Result Comment: 2020 [...] Inclusion of Race in Diagnosing Kidney Disease. [place] Journal of Kidney Diseases 2021;79(2):268-88.e1. 2. N Engl J Med 1 Vol. 385 Issue 19 Pages 2512-2416 Performed By: #### C H8 #### [facility] [address] [place] [address], Glucose [Mass/Vol] 104 mg/dL Normal 68-110 [facility] Comment on above: Performed By: #### C H8 #### [facility] [address] [place] [address], Potassium [Moles/Vol] 4.7 mmol/L Normal 3.3-5.3 [facility] Comment on above: Performed By: #### C H8 #### [facility] [address] [place] [address], Sodium [Moles/Vol] 140 mmol/L Normal 135-148 [facility] Comment on above: Performed By: #### C H8 #### [facility] [address] [place] [address], Urea nitrogen [Mass/Vol] 22 mg/dL Normal 8-22 [facility] Comment on above: Performed By: #### C H8 #### [facility] [address] [place] [address], PSE Chartingon 06-22-2023 Bag Machine Operator Helper Authentication Interface Message Text Dental Consult The [...] Treatment Dental treatment in the OR Follow-up [facility] if needed NOTE: Legal Guardian: Delbert Devine (BROTHER) [phone]. Consent taken by phone. Hiram Rodriguez DDS Normal [facility] Patient Instructionson 06-22 Bag Machine Operator Helper Authentication Interface Message Text RECOMMENDATIONS: Patient was instructed on the following: Nothing by mouth after midnight before surgery except following meds with sip of water on AM of surgery: as per anesthesia Stop aspirin 7 days before surgery Stop NSAID 5 days before surgery Stop Vitamin E 10 days prior to surgery Stop alternative/herbal medication 10 days before surgery Franc Beyer MD [phone] Normal [facility] Progress Noteson 06-22-2023 Bag Machine Operator Helper Authentication Interface Message Text Identification was verified by patient verbalizing his name and date of . 23 gauge used for venipuncture to the R hand. Tolerated with assistance x2. Sent blood to lab. 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 Normal [facility] Bag Machine Operator Helper Authentication Interface Message Text Patient was identified by name and date of . Alicia Hunt Normal [facility] XR CHEST PA+LAT 2 VIEWSon XR [...] dedicated abdominal radiograph/CT. MACRO: None Normal [facility] XR Chest PA and Lateralon EXAMINATION: [...] indicated with dedicated abdominal radiograph/CT. MACRO: None [facility] Study observation (narrative) [facility] XR Chest PA and LateralOrder ed By: Krystal Lucian on 06-22-2023 [facility] Work Phone: Progress Noteson 06-13-2023 Bag Machine Operator Helper Authentication Interface Message Text Parent/guardian(Wendy peres @ [place]) was contacted for PSE AND OR scheduled -- confirmed information with mom, also informed mom importance of receiving PSE call -- if not received surgery will be canceled ----- Sunday, June 13, 2023 at 11:28:09 AM ----- ----- Provider: Orville Amaya Specialist -- Clinic: [place] ----- Normal [facility] DEPAKENE/ VALPROIC ACIDon DEPAKENE 59.3 ug/ml Normal 50.0-100.0 The [facility] Comment on above: Performed By: #### V ALP #### [facility] [address] [address] [address] Nikky King DEPAKENE/ VALPROIC ACIDon DEPAKENE 43.6 ug/ml Critically low 50.0-100.0 The [facility] Comment on above: Performed By: #### V ALP #### [facility] [address] [address] [address] Nikky King LITHIUMon 12-06-2022 [place] (Eskalith(R)), Serum 0.8 mmol/L Normal 0.5-1.2 The [facility] Comment on above: Result Comment: A co ncentration of 0.5-0.8 mmol/L is advised for long-term use; concentrations of up to 1.2 mmol/L may be necessary during acute treatment. Detection Limit = 0.1 <0.1 indicates None Detected Performed By: #### L ITHIUM #### [facility] [address] [place] [address] Dr. Nikky King DEPAKENE/ VALPROIC ACIDon DEPAKENE 61.7 ug/ml Normal 50.0-100.0 [facility] Comment on above: Performed By: #### V ALP #### [facility] [address] [place] [address] Dr. Nikky King LITHIUMon 11-23-2022 [place] (Eskalith(R)), Serum 0.9 mmol/L Normal 0.5-1.2 [facility] Comment on above: Result Comment: A co ncentration of 0.5-0.8 mmol/L is advised for long-term use; concentrations of up to 1.2 mmol/L may be necessary during acute treatment. Detection Limit = 0.1 <0.1 indicates None Detected Performed By: #### L ITHIUM #### [facility] [address] [place] [address] Dr. Nikky King CALCIUMon 08-22-2022 Calcium [Mass/Vol] 9.6 mg/dL Normal 8.5-10.1 [facility] Comment on above: Performed By: #### C A CREA #### [facility] [address] [place] [address] Dr. Nikky King CREATININEon 08-22-2022 Creatinine [Mass/Vol] 0.84 mg/dL Normal 0.70-1.30 [facility] Comment on above: Performed By: #### C Jaki CREA #### [facility] [address] [place] [address] Dr. Nikky King EGFR-AF PORTUGUESE >60 Normal >=60 [facility] Comment on above: Performed By: #### C Jaki, CREA #### [facility] [address] [place] [address] Dr. Nikky King EGFR-NON AF [place]E >60 Normal >=60 [facility] Comment on above: Performed By: #### C A, CREA #### [facility] [id number] Nikky King LITHIUMon 07-05-2022 [place] (Eskalith(R)), Serum 0.9 mmol/L Normal 0.5-1.2 The [facility] Comment on above: Result Comment: A co ncentration of 0.5-0.8 mmol/L is advised for long-term use; concentrations of up to 1.2 mmol/L may be necessary during acute treatment. Detection Limit = 0.1 <0.1 indicates None Detected Performed By: #### L ITHIUM #### [facility] [id number] Nikky King Vital Signs Date Time Vital Sign Value Performing Clinician Faci lity 05-21-2024 09:290400 Body height 167.6 cm [employer] PA Work Phone: [facility] 05-21-2024 09:29-0400 Body mass index (BMI) [Ratio] 31.96 kg/m2 Cris Ixtense PA Work Phone: [facility] 05-21-2024 09:29-0400 Body weight 89.81 kg Cris Lowe PA Work Phone: [facility] 05-21-2024 09:29-0400 Diastolic blood pressure 90 mm[Hg] Cris Lowe PA Work Phone: [facility] 05-21-2024 09:29-0400 Systolic blood pressure 136 mm[Hg] Cris Lowe PA Work Phone: [facility] 12-28-2023 14:30-0400 Diastolic blood pressure 89 mm[Hg] Mari Yi DMD Work Phone: [facility] 12-28-2023 14:30-0400 Heart rate 69 /min Mari Yi DMD Work Phone: [facility] 12-28-2023 14:30-0400 Respiratory rate 10 /min [facility] DMD [facility] 12-28-2023 14:30-0400 SaO2% (BldA) [Mass fraction] 100 % Mari Yi DMD Work Phone: [facility] 12-28-2023 14:30-0400 Systolic blood pressure 135 mm[Hg] Mari Yi DMD Work Phone: [facility] 12-28-2023 13:52-0400 Body temperature 97.3 [degF] Mari [facility]i DMD [facility] 12-28-2023 09:15-0400 Body height 167.6 cm Mari Yi DMD Work Phone: [facility] 12-28-2023 09:15-0400 Body mass index (BMI) [Ratio] 31.8 kg/m2 Mari Yi DMD Work Phone: [facility] 12-28-2023 09:15-0400 Body weight 89.36 kg Mari Yi DMD [facility] 12-19-2023 11:23-0400 Diastolic blood pressure 90 mm[Hg] Ling Perryiv FLAT LOCKER-FORKLIFT TRUCK MECHANIC Work Phone: [facility] 12-19-2023 11:23-0400 Systolic blood pressure 132 mm[Hg] Ling Markiv FLAT LOCKER-FORKLIFT TRUCK MECHANIC Work Phone: [facility] 12-19-2023 11:03-0400 Body height 167.6 cm Ling Markiv FLAT LOCKER-FORKLIFT TRUCK MECHANIC [facility] 12-19-2023 11:03-0400 Body mass index (BMI) [Ratio] 31.8 kg/m2 Ling Markiv FLAT LOCKER-FORKLIFT TRUCK MECHANIC [facility] Phone[facility] 12-19-2023 11:03-0400 Body temperature 97.81 [degF] Ling Markiv FLAT LOCKER-FORKLIFT TRUCK MECHANIC [facility] 12-19-2023 11:03-0400 Body weight 89.36 kg Ling Perryiv FLAT LOCKER-FORKLIFT TRUCK MECHANIC Work Phone: [facility] 12-19-2023 11:03-0400 Heart rate 59 /min Ling Perryiv FLAT LOCK[employer]KLIFT TRUCK MECHANIC Work Phone: [facility] 12-19-2023 11:03-0400 Respiratory rate 18 /min Ling Perryiv FLAT LOCKER-FORKLIFT TRUCK MECHANIC Work Phone: [facility] 12-19-2023 11:03-0400 SaO2% (BldA) [Mass fraction] 97 % Ling Perryiv FLAT LOCKER-FORKLIFT TRUCK MECHANIC Work Phone: [facility] 12-03-2023 13:07-0400 Body height 167.6 cm Oscar Ruiz MD Work Phone: [facility] 12-03-2023 13:07-0400 Body weight 92.53 kg Oscar Ruiz MD Work Phone: [facility] 12-03-2023 13:07-0400 Diastolic blood pressure 76 mm[Hg] Oscar Ruiz MD Work Phone: [facility] 12-03-2023 13:07-0400 Heart rate 71 /min Oscar Ruiz MD Work Phone: [facility] 12-03-2023 13:07-0400 Systolic blood pressure 111 mm[Hg] Oscar Ruiz MD Work Phone: [facility] 11-28-2023 09:48-0400 Body height 167.6 cm Victoria Sanchez FLAT LOCKER.FORKLIFT TRUCK MECHANIC Work Phone: [facility] 11-28-2023 09:48-0400 Body temperature 97.5 [degF] Victoria Daniel FLAT LOCKER.FORKLIFT TRUCK MECHANIC Work Phone: [facility] 11-28-2023 09:48-0400 Body weight 87.54 kg Victoriajonas Perryo FLAT LOCKER.FORKLIFT TRUCK MECHANIC Work Phone: [facility] 11-28-2023 09:48-0400 Diastolic blood pressure 66 mm[Hg] Victoria Sanchez FLAT LOCKER.FORKLIFT TRUCK MECHANIC Work Phone: [facility] 11-28-2023 09:48-0400 Heart rate 83 /min Victoria Sanchez FLAT LOCKER.FORKLIFT TRUCK MECHANIC Work Phone: [facility] 11-28-2023 09:48-0400 Systolic blood pressure 134 mm[Hg] Victoria Sanchez FLAT LOCKER.FORKLIFT TRUCK MECHANIC Work Phone: [facility] 07-16-2023 08:06-0500 Body mass index (BMI) [Ratio] 33.97 kg/m2 Kim Horton MD Work Phone: [facility] 07-16-2023 08:06-0500 Body temperature 97.5 [degF] Kim Horton MD Work Phone: [facility] 07-16-2023 08:06-0500 Body weight 90.27 kg Kim Horton MD Work Phone: [facility] 07-16-2023 08:06-0500 Diastolic blood pressure 80 mm[Hg] Kim Horton MD Work Phone: [facility] 07-16-2023 08:06-0500 Heart rate 37 /min Kim Horton MD Work Phone: [facility] 07-16-2023 08:06-0500 Respiratory rate 15 /min Kim Horton MD Work Phone: [facility] 07-16-2023 08:06-0500 SaO2% (BldA) [Mass fraction] 100 % Kim Horton MD Work Phone: [facility] 07-16-2023 08:06-0500 Systolic blood pressure 110 mm[Hg] Kim Horton MD Work Phone: [facility] Encounters Encounter Date Encounter Type Care Provider Facility Start: 05-21-2024 End: 05-21-2024 Maia BANG Work Phone: [facility] Start: 05-21-2024 End: 05-21-2024 Bamboo flowsheet Cris [facility]ANG [facility] [address] Start: 05-21-2024 End: 05-21-2024 Office outpatient visit 15 minutes Cris BANG [facility] [address] Comment on above: Alteration of awaren ess (Primary Dx) Start: 05-21-2024 End: 05-21-2024 ambulatory CRIS WALTERS Not Available Start: 05-18-2024 End: 05-18-2024 Letter encounter Aileen Corcoran DDS Work Phone: [facility] Start: 02-13-2024 End: 02-13-2024 Lab Drop off HERMAN CRANE [facility] Start: 02-13-2024 End: 02-13-2024 ambulatory HERMAN CRANE Facility:[facility] Start: 01-29-2024 End: 01-29-2024 ambulatory CRIS WALTERS Not Available Start: 01-11-2024 Telephone encounter Cris Dinh RN Colorectal Surgery Comment on above: Radar Engineering Teacher - O ther Start: 12-28-2023 End: 12-31-2023 ambulatory MARI YI Facility:[facility] Start: 12-28-2023 End: 12-31-2023 Patient encounter procedure Mari Yi DMD Work Phone: [facility] Dentistry Start: 12-28-2023 End: 12-28-2023 Subsequent hospital visit by physician Mari Yi DMD Work Phone: [facility] Start: 12-25-2023 Telephone encounter Shayy Chandler RN [facility] Pre-Admission Testing Comment on above: Pre-surgical Evaluat ion (DD adult dental restorations 12/27 under [facility] at [place]. PAT completed - consent request sent to main - see future encounter for results. CHRISTINA RN spoke to [facility], confirmed O, [place] address, and 0900 arrival time/) Pre-surgical Evaluat ion (Anesthesia Attestaion for dental surgery scanned in digital media coordinator) Start: 12-20-2023 End: 12-20-2023 Orders Only Victoria Sanchez FLAT LOCKER.FORKLIFT TRUCK MECHANIC Work Phone: General Surgery Comment on above: Sigmoid volvulus (HC C) (Primary Dx) Start: 12-19-2023 ambulatory UNKNOWN PROVIDER [facility] Start: 12-19-2023 End: 12-19-2023 Patient encounter procedure Ling Coffman FLAT LOCKER-FORKLIFT TRUCK MECHANIC Work Phone: [facility] Pre-Admission Testing Comment on above: Pre-op testing (Prim marylin Dx); Body mass index (BMI) 31.0-31.9, adult Start: 12-19-2023 End: 12-19-2023 Patient encounter status Ling Coffman FLAT LOCKER-FORKLIFT TRUCK MECHANIC Work Phone: [facility] Work Phone: Start: 12-11-2023 End: 12-11-2023 ambulatory EPIFANIO HUNTLEY Not Available Start: 12-03-2023 End: 12-04-2023 ambulatory Rafael Giraldo MD Work Phone: Urology Start: 12-03-2023 End: 12-03-2023 Office outpatient visit 5 minutes Oscar Ruiz MD Work Phone: Urology Comment on above: Phimosis (Primary Dx ) Start: 11-28-2023 End: 11-29-2023 ambulatory VICTORIA DANIEL Facility:[facility] Start: 11-28-2023 End: 11-28-2023 Patient encounter procedure Victoria Sanchez FLAT LOCKER.FORKLIFT TRUCK MECHANIC Work Phone: General Surgery Comment on above: Postoperative visit (Primary Dx) Start: 11-12-2023 Telephone encounter Cris Dinh RN Colorectal Surgery Comment on above: Radar Engineering Teacher - O ther Start: 11-07-2023 End: 11-07-2023 ambulatory PHOENIX CARDENAS Facility:[facility] Start: 10-28-2023 Evaluation and management of inpatient PHOENIX ACRDENAS Facility:[facility] Start: 07-16-2023 End: 07-16-2023 Emergency department patient visit UNKNOWN PROVIDER Facility:[facility] Start: 07-16-2023 End: 07-16-2023 ambulatory UNKNOWN PROVIDER Facility:[facility] Start: 07-16-2023 End: 07-16-2023 Emergency department patient visit Kim Horton MD Work Phone: [facility] Comment on above: bradycardia (Low HR (33)) Start: 07-16-2023 End: 07-16-2023 Subsequent hospital visit by physician Harpreet Mccurdy DDS Work Phone: [facility] CT Scan Comment on above: Arrived Start: 07-16-2023 End: 07-19-2023 ambulatory UNKNOWN PROVIDER Facility:[facility] Start: 07-04-2023 End: 07-04-2023 ambulatory HERMAN CRANE Facility:[facility] Start: 07-04-2023 End: 07-04-2023 Lab Drop off HERMAN CRANE [facility] Start: 06-26-2023 Telephone encounter Shanna marquez RN [facility] Pre Surgical Evaluation Comment on above: Pre-surgical Evaluat ion (Informed Consent for dental surgery & Anesthesia consent obtained) Start: 06-22-2023 End: 06-23-2023 ambulatory UNKNOWN PROVIDER Facility:[facility] Start: 06-22-2023 Encounter for other preprocedural examination UNKNOWN PROVIDER [facility] Start: 06-22-2023 End: 06-22-2023 ambulatory UNKNOWN PROVIDER Facility:[facility] Start: 06-22-2023 End: 06-22-2023 Subsequent hospital visit by physician Alin Op Xray 2 [facility] Comment on above: Pre-op exam Start: 06-22-2023 End: 06-22-2023 Patient encounter procedure Pse Anesthesia [facility] Pre Surgical Evaluation Comment on above: Pre-op evaluation (P rimary Dx) Start: 06-22-2023 End: 06-22-2023 Preprocedural examination done Pse Anesthesia [facility] Work Phone: Start: 05-25-2023 Admission to [facility] Hiram Rodriguez DDS Work Phone: [facility] Start: 01-17-[address] HERMAN CRANE Fac [...] other specified special examinations DR HERMAN CRANE [facility] Start: 08-22-2022 End: 08-23-[address] HERMAN [...] Start: 03-29-2022 Telephone encounter To Be Assigned [facility] Physician Referral Service Comment on above: Medical Record Revie w Procedures Date Procedure Procedure Detail Performing Clinician Start: 12-19-2023 Basic metabolic pane l calcium total Ling Markiv FLAT LOCKER-FORKLIFT TRUCK MECHANIC Work Phone: Start: 10-28-2023 Antibody screen PHOENIX CARDENAS Comment on above: Order Comment: Speci men Type: BLOOD SPECIMEN Ordering Facility: [facility] Address: [address] [place] [address] Performed By: #### 2 [id number], [id number], 2777-1 #### [facility] CLIA [id number] [address] [place] [address] [address] [place] Start: 07-16-2023 End: [...] DTaP,Tdap,Td Vaccine (2 - Td or Tdap) [facility] Start: 12-02-2024 End: 12-02-2024 Patient encounter procedure 12/02/2024 12:40 PM EDT Office Visit [facility] [address] [place] [id number] Cris Walters PA [address] [place], [place] [id number] [facility] [address] Start: 05-21-2024 End: 05-21-2024 Patient encounter procedure 05/21/2024 9:40 AM EDT Office Visit [facility] [address] [place] [phone] Cris Walters PA [address] [place] [address] Ar[address] [facility] [address] Comment on above: Arrived Start: 04-20-2024 COVID-19 Vaccine ( season) COVID-19 Vaccine () [facility] Start: 04-20-2024 Influenza vaccination Influenza Vacc ine (#[facility] Start: 03-11-2024 End: 03-11-2024 Patient encounter procedure 03/11/2024 9:00 AM EDT Office Visit [facility] Ophthal[facility] [address] [facility] [address] [place] [address] Iain Lazcano MD [address] [place] [address] Cataracts Ophthalmology Comment on above: Cataracts Start: 12-28-2023 End: 12-28-2023 Admission to same day surgery center 12/28/2023 10:01 AM EDT - 12/28/2023 12:21 PM EDT Surgery [facility] [address] [place] [address] Mari Yi DMD [address] [place] [address] DENTAL RESTORATIONS [facility] Comment on above: DENTAL RESTORATIONS Start: 12-28-2023 End: 12-28-2023 DENTAL RESTORATIONS [facility] Start: 12-28-2023 Subsequent hospital visit by physician 12/28/2023 10:01 AM EDT Hospital Encounter [facility] [address] [place] [address] Mari Yi DMD [address] [place] [address] [facility] [place] [facility] Start: 12-28-2023 End: 12-28-2023 Patient encounter procedure 12/28/2023 9:00 AM EDT Procedure Visit [facility] [address] [place] [address] Mari Yi DMD [address] [place] [address] [facility] Start: 08-20-2023 Behavioral Health Screening Behavioral Health Screening [facility] Start: 08-20-2023 Depression Assessment Depression Ass essment [facility] Start: 07-16-2023 End: 07-16-2023 DENTAL RESTORATIONS DENTAL RESTORATIONS Routine scheduled Caries 07/16/2023 1:45 PM EST [facility] Start: 07-16-2023 End: 07-16-2023 Admission to same day surgery center 07/16/2023 9:27 AM EST - 07/16/2023 11:24 AM EST Surgery [facility] [id number] [place] [address] Harpreet Mccurdy, JENNIFERS [address] [place] [address] DENTAL RESTORATIONS [facility] Comment on above: DENTAL RESTORATIONS Start: 07-16-2023 End: 07-16-2023 DENTAL RESTORATIONS DENTAL RESTORATIONS Routine scheduled Caries 07/16/2023 9:27 AM EST [facility] Start: 07-16-2023 Subsequent hospital visit by physician [facility] Start: 06-22-2023 End: 06-22-2023 Patient encounter procedure 06/22/2023 2:30 PM EDT Office Visit [facility] [address] [place] [address] Franc Beyer MD [address] [place] [address] [facility] Start: 04-20-2023 COVID-19 Vaccine ( season) COVID-19 Vaccine ( season) [facility] Start: 04-20-2023 Influenza vaccination Influenza Vacc ine (#1) [facility] Start: 05-20-2022 Influenza vaccination Influenza Vacc ine (#1) [facility] Start: 04-20-2022 Influenza vaccination INFLUENZA (#1) [facility] Start: 08-20-2021 DEPRESSION ASSESSMENT DEPRESSION ASS ESSMENT [facility] Start: 08-10-2021 COVID-19 VACCINE (4 - Booster for Pfizer series) COVID-19 VACCINE (4 - Booster for Pfizer series) [facility] Start: 2019 HPV Vaccine (optiona l start 27-45 years) HPV Vaccine (optional start 27-45 years) [facility] Start: 02-17-2014 Annual wellness visit Annual W ellness Visit (G0438) [facility] Start: 2011 Hepatitis A (HAV) Vaccine (optional start 19+ years) Hepatitis A (HAV) Vaccine (optional start 19+ years) [facility] Start: 2011 Hepatitis B vaccination Hepatitis B (HBV) Vaccine (1 of 3 - 19+ 3-dose series) [facility] Start: 2011 Hepatitis B Vaccine (1 of 3 - 19+ 3-dose series) Hepatitis B Vaccine (1 of 3 - 19+ 3-dose series) [facility] Start: 2011 Urine microalbumin profile DTAP,TDAP,TD (1 - Tdap) [facility] Start: 2010 Annual PCP Team Chronic Disease Visit Annual PCP Team Chronic Disease Visit [facility] Start: 2010 Hepatitis C screening M [facility] Start: 2010 HEPATITIS C SCREENING HEPATITIS C SC RENATE [facility] Start: 2010 HIV SCREENING HIV SCREENING [facility] Start: 2010 HIV screening HIV Screening [facility] Start: 2007 HIV screening HIV Test [facility] Start: 2004 Adult depression screening assessment DEPRESSION SCREENING [facility] Start: 1992 HEPATITIS B (1 of 3 - 3-dose series) HEPATITIS B (1 of 3 - 3-dose series) [facility] Start: 1992 Hepatitis B vaccination Hepatitis B (HBV) Vaccine (1 of 3 - 3-dose series) [facility] Start: 1992 Thyroid stimulating hormone measurement TSH [facility] DENTAL RESTORATIONS DENTAL OMAR RATIONS Routine scheduled Caries [facility] URINALYSIS, REFLEX MICROSCOPIC URINALYSIS, REFLEX MICROSCOPIC Lab Routine Screening for genitourinary condition Ordered: 12/03/2023 [facility] Work Phone: Comment on above: Ordered: 12/03/2023 [facility] Immunizations Immunization Date Immunization Notes Care Provider Jason lowe 06-15-2021 influenza, injectabl e, quadrivalent, preservative free To Assigned [facility] 06-15-2021 influenza virus vacc ine, unspecified formulation To Assigned [facility] 05-26-2020 influenza, injectabl e, quadrivalent, preservative free To Assigned [facility] 07-10-2019 tetanus toxoid, redu alex diphtheria toxoid, and acellular pertussis vaccine, adsorbed To Assigned [facility] 06-13-2019 influenza, injectabl e, quadrivalent, preservative free To Assigned [facility] 05-29-2018 influenza, injectabl e, quadrivalent, preservative free To Assigned [facility] 06-13-2017 influenza, injectabl e, quadrivalent, contains preservative To Assigned [facility] 06-10-2015 influenza, injectabl e, quadrivalent, preservative free To Assigned [facility] 06-12-2012 influenza, seasonal[facility]2011 influenza, seasonal, injectable, preservative free To Assigned [facility] 06-15-2010 influenza, seasonal, [facility] 07-07-2009 novel influenza-H1N1 -09, preservative-free, injectable To Assigned [facility] 05-11-2009 influenza, seasonal, injectable To A ssigned [facility] 06-15-2008 influenza, seasonal, [facility] 06-11-2008 influenza virus vacc ine, whole virus To Assigned [facility] Payers Date Payer Category Payer Unknown [id number] 2017 Medicaid [id number] 2013 Medicare [id number] 1992 Unknown [id number] 2.16. 840.1.760459.3.579.2.732 1992 Unknown [id number] 2.16. 840.1.512813.3.579.2.732 1992 Unknown [id number] 2.16. 840.1.016293.3.579.2.732 1992 Unknown [id number] 2.16. 840.1.824320.3.579.2.732 1992 Unknown [id number] 2.16. 840.1.947952.3.579.2.732 1992 Unknown [id number] 2.16. 840.1.524431.3.579.2.732 1992 Unknown [id number] 2.16. 840.1.529816.3.579.2.732 1992 Unknown [id number] 2.16. 840.1.534545.3.579.2.732 1992 Unknown [id number] 2.16. 840.1.868471.3.579.2.732 1992 Unknown [id number] 2.16. 840.1.391900.3.579.2.732 1992 Unknown [id number] 2.16. 840.1.602876.3.579.2.732 1992 Unknown [id number] 2.16.8 40.1.447534.3.579.2.727 1992 Unknown [id number] 2.16.8 40.1.367864.3.579.2.727 1992 Unknown [id number] 2.16.84 0.1.689865.3.579.2.1259 1992 Unknown [id number] 2.16.84 0.1.386575.3.579.2.1259 1992 Unknown [id number] 2.16.84 0.1.169729.3.579.2.1259 1992 Unknown [id number] 2.16.84 0.1.209090.3.579.2.1259 1959 Medicaid [id number] 1957 Medicare [id number] Unknown [id number] 2.16.84 0.1.953480.3.579.2.593 Unknown [id number] 2.16.84 0.1.139087.3.579.2.593 Unknown [id number] 2.16.84 0.1.410011.3.579.2.593 Unknown [id number] 2.16.84 0.1.359699.3.579.2.593 Unknown [id number] 2.16.84 0.1.798556.3.579.2.593 Unknown [id number] 2.16.84 0.1.179818.3.579.2.593 Unknown [id number] 2.16.84 0.1.890693.3.579.2.593 Unknown [id number] 2.16.84 0.1.177842.3.579.2.593 Social History Date Type Detail Facility Start: 07-08-2019 End: 12-11-2023 Tobacco smoking status TNIS Never smoked tobacco [facility] Start: 07-08-2019 End: 12-11-2023 Tobacco use and exposure Smokeless tobacco non-user [facility] Start: 02-04-2021 End: 12-31-2023 Alcohol intake Lifetime non-drinker (finding) [facility] Start: 07-13-2020 History SDOH Alcohol Frequency 1 [facility] Start: 1992 [facility] Assigned At [facility] Start: 05-04-2022 End: 12-19-2023 Tobacco smoking status TNIS Tobacco smoking consumption unknown [facility] Start: 04-24-2022 End: 05-04-2022 Exposure to SARS-CoV-2 (event) Not sure [facility] Start: 10-29-2023 End: 05-21-2024 Gender identity Not on file [facility] Tobacco smoking status No Smokin g Status Entered [facility] Start: 10-29-2023 End: 05-21-2024 History of Social function [facility] Work Phone: Has the [employer], [employer], [employer], or [employer] company threatened to shut off services in your home in past 12Mo Patient unable to answer [facility] Work Phone: How often to you hav e a drink containing alcohol? Never [facility] Work Phone: Clinical Notes 03-29-2022 to 05-21-2024 BETI Juarez - 05/21/2024 9:40 AM EDTTelephone Encounter - Cris Dinh RN - 01/11/2024 1:27 PM EDTTelephone Encounter - Cris Dinh RN - 01/11/2024 1:27 PM EDTDischarge Instructions Note Date & Type Note Facility 05-21-2024 History of Present illness Narrative Subjective Johnny Devine is a 33 y.o. year old male Chief Complaint Patient presents with Seizures History reviewed. No pertinent past medical history. History reviewed. No pertinent surgical history. No family history on file. Social History Tobacco Use Smoking status: Never Smokeless tobacco: Never Substance Use Topics Alcohol use: Not on file HPI Seizure -caregiver denies any seizure since last visit -moods are stable -he is on Depakote 500mg BID for behavior -denies any missed doses -he is sleeping well at night -Caregiver denies any new issues or concerns -appetite at baseline ROS Review of Systems Constitutional: Negative for activity change, chills and fatigue. HENT: Negative for drooling, facial swelling, mouth sores, nosebleeds, sneezing and trouble swallowing. Eyes: Negative for discharge and redness. Respiratory: Negative for cough and wheezing. Cardiovascular: Negative for leg swelling. Gastrointestinal: Negative for anal bleeding, constipation and diarrhea. Musculoskeletal: Negative for gait problem and joint swelling. Skin: Negative for color change, pallor, rash and wound. Neurological: Positive for seizures. Negative for tremors and syncope. Psychiatric/Behavioral: Positive for agitation. Negative for self-injury and sleep disturbance. Endocrine: Negative for cold intolerance and heat intolerance. Objective Visit Vitals BP 136/90 Ht 5' 6 Wt 198 lb BMI 31.96 kg/m Smoking Status Never BSA 2.04 m Heart-RRR Neurological Exam Mental Status Awake. Patient is nonverbal. Cranial Nerves CN III, IV, : Normal lids and orbits bilaterally. Pupils equal round and reactive to light bilaterally. CN V: Facial sensation is normal. CN VII: Full and symmetric facial movement. CN VIII: Hearing is normal. CN XI: Shoulder shrug strength is normal. CN XII: Tongue midline without atrophy or fasciculations. Motor Strength is 5/5 throughout all four extremities. Sensory Light touch is normal in upper and lower extremities. Reflexes Deep tendon reflexes are 2+ and symmetric in all four extremities. Gait Normal casual, toe, heel and tandem gait. Assessment and Plan Alteration of awareness Patient presented with episodes of altered levels of consciousness that occurred in October during a hospitalization for a bowel obstruction possibly due to seizure, syncope or cerebral hypoperfusion secondary to intracranial or extracranial stenosis. His medications were discontinued for the procedure he was having and may have contributed to his symptoms. He has been episode free since the hospitalization. The patient had a CT scan of the brain 11/03/23 at [facility] that revealed volume loss, especially in the posterior hemispheric white matter, most likely a chronic finding. He had an EEG that was suggestive of bilateral cortical dysfunction maximum in the left hemisphere and severe diffuse encephalopathy. Repeat EEG 12/20/23 was abnormal due to left temporal slowing suggestive of a structural lesion or dysfunction in that region. He has had no further episodes since his last visit and is compliant with medications. PLAN Continue Depakote 500mg PO BID for seizure prevention. Continue with seizure precautions at care facility. Caregiver was advised to call for any new or worsening symptoms. Follow up in 6 months documented in this encounter [facility] 02-13-2024 Evaluation + Plan note Diagnostic Tests PendingKeppra Lvl 02/13/24Lamotrigine Level 02/13/24 [facility] 01-11-2024 Telephone encounter Note Jessica from [facility] [phone] is caller. She states was originally told [...] needs at present time. Cris Dinh, RN [facility] 01-11-2024 Miscellaneous Notes Jessica from [facility] [phone] is caller. She states was originally told [...] needs at present time. Cris Dinh, MIRIAM documented in this encounter [facility] 12-28-2023 Hospital Discharge instructions Benjamín Guo - 12/28/2023 2:17 PM EDT PERIOPERATIVE DISCHARGE/HOME-GOING INSTRUCTIONS ANESTHESIA - GENERAL (ADULT) If a problem arises, you may contact your physician by calling [phone] and asking for the resident property utilization manager for Dental service. Special Care Needs: Activity: [...] sent through Care Everywhere.Tooth Extraction Discharge Instructions (Congolese)documented in this encounter [facility] 12-28-2023 Note Surgical Attestation : I have [...] Mari Yi DMD 12/28/2023 10:09 AM [facility] 12-28-2023 History and physical note Surgical [...] possible Mari Yi DMD 12/28/2023 10:09 AM [facility] Work Phone: 12-28-2023 History and physical note [...] 12/28/2023 10:09 AM documented in this encounter [facility] 12-28-2023 Miscellaneous Notes Brief Operative Note PHE OR 3 Johnny Devine 33 year old male Surgical Contact Serial Number: [id number] Preoperative Diagnosis: Pre-op Diagnosis * Caries [K02.9] Moderate intellectual disability [F79] Postoperative Diagnosis: Moderate intellectual disability [F79] Procedures: Comprehensive exam [56051] Full mouth X-ray [ 92399] Extractions [07137] Restorations [79780] Prophy 06707] Fluoride treatment [74703] Surgeon(s): Surgeon(s): Mari Yi DMD Staff: Health Services Manager Nurse: Henrietta Johnson Anesthesia: General Anesthesia Staff: [...] Moderate intellectual disability[F79] @ENCORD@ Surgeon: Dr. Mari Yi, ANIYAH Generator Operator Straight [employer]vel Gear Surgeon: Reema Whiting DDS Anesthesia: General- Nasal [...] 4 mg/0.1 mL nasal liquid Use 1 [place] in one nostril (alternate sides) as needed [...] were discussed with the patient and/or legal group sales representative. The risks, benefits and alternatives were reviewed. Questions regarding blood transfusions were answered. The patient /or the patient s legal group sales representative agree with the plan for transfusion of blood and/or blood components. documented in this encounter [facility] 12-28-2023 Surgery Postoperative evaluation and management note Brief Operative Note PHE OR 3 Johnny Devine 33 year old male Surgical Contact Serial Number: [id number] Preoperative Diagnosis: Pre-op Diagnosis * Caries [K02.9] Moderate intellectual disability [F79] Postoperative Diagnosis: Moderate intellectual disability [F79] Procedures: Comprehensive exam [84118] Full mouth X-ray [ 14484] Extractions [76778] Restorations [52526] Prophy 67881] Fluoride treatment [21325] Surgeon(s): Surgeon(s): Mari Yi DMD Staff: Health Services Manager Nurse: Henrietta Johnson Anesthesia: General Anesthesia Staff: [...] by Reema Whiting DDS 12/28/2023 1;48 pm [facility] 12-28-2023 Surgery Surgical operation note Surgical Case Number Data Unavailable Operating Room Data Unavailable Preoperative Diagnosis(es): Pre-op Diagnosis * Caries [K02.9] Moderate intellectual disability [F79] Postoperative Diagnosis(es): Moderate intellectual disability[F79] @ENCORD@ Surgeon: Dr. Mari Yi, ANIYAH Generator Operator Straight [employer] Surgeon: Reema Whiting DDS Anesthesia: General- Nasal [...] 4 mg/0.1 mL nasal liquid Use 1 [place] in one nostril (alternate sides) as needed [...] procedure. Reema Whiting DDS 12/28/2023 1:53 pm [facility] 12-28-2023 Progress note Formatting of t his note is different from the original. Blood Attestation: ATTESTATION OF INFORMED CONSENT FOR BLOOD: The transfusion of blood and/or blood components were discussed with the patient and/or legal group sales representative. The risks, benefits and alternatives were reviewed. Questions regarding blood transfusions were answered. The patient /or the patient s legal group sales representative agree with the plan for transfusion of blood and/or blood components. [facility] 12-28-2023 History of Present illness Narrative Patient takes his seizure medication with pudding, facility held them today for dental surgery. Caregiver brought capsules with them to pre-op. Per Dr. Saldivar, divalproex 125 mg x 4 capsules (500 mg) were opened and sprinkles given to patient with 50 mL of water in pre-op. 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 MB cusp tip was visualized upon extraction of #17, but well encased in bone and would not be exposed to the oral cavity following healing of the extraction site. Preoperative Diagnosis(es): Pre-op Diagnosis * Caries [K02.9] Moderate intellectual disability [F79] Postoperative Diagnosis(es): Moderate intellectual disability[F79] Surgeon: Dr. Mari Yi, ANIYAH Generator Operator Straight [employer] Gear Surgeon: Reema Whiting DDS Anesthesia: General- Nasal [...] of surgery: Stable documented in this encounter [facility] 12-21-2023 Evaluation note Addendum 12/21/2023- Caregiver @ [facility] called to relay that patient unable to take medications without pudding. Per Dr. Newell: Instruct them to take the meds at night. Please then coordinate with either the anesthesia team or surgical team to order IV depacon so he can get his depakote. I would have the facility bring his oral depakote for after surgery If they can't get the depacon at [facility] V[facility] RN updated nursing staff @ [facility]. [facility] 12-21-2023 Miscellaneous Notes Addendum 12/21/2023- Caregiver @ [facility] facility called to relay that patient unable to take medications without pudding. Per Dr. Newell: Instruct them to take the meds at night. Please then coordinate with either the anesthesia team or surgical team to order IV depacon so he can get his depakote. I would have the facility bring his oral depakote for after surgery If they can't get the depacon at [facility] RN updated nursing staff @ [facility]. Patient was identified by name and date of . Jaswinder Arredondo Patient at risk for falls:No Falls Risk protocol implemented: N/A documented in this encounter [facility] 12-19-2023 Note Pre-Admission Testin g Consultation Johnny Devine, [id number] 33 year old Male 12/19/2023 Consult placed to [facility] by Mari Yi, due to significant PMH of Hypothyroidism , Bipolar, Autistic disorder ,Epilepsy PAT Triage Risk Score Total Score: 3 1 [...] intervention warranted . Patient with Lamaar from [facility] facility during this appointment Patient is here for pre-admission optimization and education prior to surgery. RECENT ILLNESS: Serious illness or hospitalization within the last six months. Yes 10/28/2023 HOSPITAL COURSE: Johnny Devine is a 33 year old male with developmental delay and no PSH who presents as a transfer to [facility] from [facility] ED for further management of small bowel obstruction. Given patient's baseline cognitive status, NGT difficult to maintain. He was admitted to the [facility] under care of general surgery and was taken to the OR the following morning for diagnostic laparoscopy. Intra-operative findings demonstrated no adhesins, no apparent hernias, dilated small/large bowel, redundant sigmoid c/f volvulus, easily reduced. After recovering in the PACU, he was taken to the [facility] with NGT in place. Patient arrived to [facility] with 8 Fr pediatric haskins catheter [...] in home regimen. Stable for discharge to nursing home. Neurology Recommendations on Discharge: - Discharge on [...] Surgeon: Lyndsay Zuluaga DDS; Location: PERIOPERATIVE SERVICES; Ser (more content not included)... [facility] 12-19-2023 Instructions Ling Coffman APRN-CNP - 12/19/2023 11:26 AM EDT On the [...] for pain. Please hold all Vitamin E, Rice 3, fish oil and herbal supplements for 1 week prior to surgery. Please use this LIST to prepare for your surgery/procedure: ? Assume that any lab or testing done during your Pre-admission testing appointment is within normal limits unless otherwise contacted. ? Expect a call from [facility] one business day prior to surgery for [...] your Preparing for Your Surgery/Procedure booklet or [email or web address] if you have questions. Contact the Pre-Admission Testing department at [phone] or your surgeon's office with any questions [...] valuables, credit cards, or large amounts of psot. ? Do NOT wear lotion or strong-smelling [...] stay with you after surgery. Please call [employer] if you need transportation assistance or have concerns about going home [phone]. ? SLEEP APNEA PATIENTS: Bring your sleep apnea machine and mask. ? PLEASE BE ON TIME. A late arrival may result in the cancellation/ delay of your surgery. Thank you for choosing [facility]; it is our pleasure to care for you documented in this encounter [facility] 12-19-2023 Instructions Shanna Sauceda RN - 12/19/2023 11:26 AM EDT [facility] staff: Since patient is unable to take [...] for pain. Please hold all Vitamin E, Rice 3, fish oil and herbal supplements for 1 week prior to surgery. Please use this LIST to prepare for your surgery/procedure: ? Assume that any lab or testing done during your Pre-admission testing appointment is within normal limits unless otherwise contacted. ? Expect a call from [facility] one business day prior to surgery for [...] your Preparing for Your Surgery/Procedure booklet or [email or web address] if you have questions. Contact the Pre-Admission Testing department at [phone] or your surgeon's office with any questions [...] stay with you after surgery. [facility] if you need [facility] assistance or have concerns about going home [phone]. ? SLEEP APNEA PATIENTS: Bring your sleep apnea machine and mask. ? PLEASE BE ON TIME. A late arrival may result in the cancellation/ delay of your surgery. Thank you for choosing [facility]; it is our pleasure to care for you documented in this encounter [facility] 12-19-2023 Evaluation note Patient was identified by name and date of . Jaswinder Arredondo Patient at risk for falls:No Falls Risk protocol implemented: N/A [facility] 12-19-2023 Miscellaneous Notes Patient was identified by name and date of . Jaswinder Arredondo Patient at risk for falls:No Falls Risk protocol implemented: N/A documented in this encounter [facility] 12-19-2023 History of Present illness Narrative Images from the original note were not included. Pre-Admission Testing Consultation Johnny Devine, [id number] 33 year old Male 12/19/2023 Consult placed to [facility] by Mari Yi, due to significant PMH of Hypothyroidism , Bipolar, Autistic disorder ,Epilepsy [facility] Triage Risk Score Total Score: 3 [...] intervention warranted . Patient with Lamaar from [facility] facility during this appointment Patient is here for pre-admission optimization and education prior to surgery. RECENT ILLNESS: Serious illness or hospitalization within the last six months. Yes 10/28/2023 HOSPITAL COURSE: Johnny Devine is a 33 year old male with developmental delay and no PSH who presents as a transfer to [facility] from [facility] ED for further management of small bowel obstruction. Given patient's baseline cognitive status, NGT difficult to maintain. He was admitted to the [facility] under care of general surgery and was taken to the OR the following morning for diagnostic laparoscopy. Intra-operative findings demonstrated no adhesins, no apparent hernias, dilated small/large bowel, redundant sigmoid c/f volvulus, easily reduced. After recovering in the PACU, he was taken to the [facility] with NGT in place. Patient arrived to [facility] with 8 Fr pediatric haskins catheter [...] in home regimen. Stable for discharge to nursing home. Neurology Recommendations on Discharge: - Discharge on [...] DENTAL RESTORATIONS; Surgeon: Harpreet Mccurdy DDS; Location: [facility]; Service: Dental Past Medical History [...] DATA: CBC @ [facility] 11/07/2023 CBC Order: [id number] Component Ref Range & Units 1 mo [...] 0418 141 110 21 91 Comment: The [place] [employer] (ADA) provides guidance for cutoff [...] Standards of Medical Care in Diabetes 2016, [place] [employer]. Diabetes Care. 2016.39(Suppl 1). 8 0.70 8.2 11/06/23 0943 146 112 18 83 Comment: The [place] [employer] (ADA) provides guidance for cutoff [...] Standards of Medical Care in Diabetes 2016, [place] [employer]. Diabetes Care. 2016.39(Suppl 1). 6 0.69 8.9 11/05/23 0418 142 112 23 96 Comment: The [place] [employer] (ADA) provides guidance for cutoff [...] Standards of Medical Care in Diabetes 2016, [place] [employer]. Diabetes Care. 2016.39(Suppl 1). 5 0.64 7.6 11/04/23 0826 145 112 24 79 Comment: The [place] [employer] (ADA) provides guidance for cutoff [...] Standards of Medical Care in Diabetes 2016, [place] [employer]. Diabetes Care. 2016.39(Suppl 1). 4 0.70 7.7 TESTS REVIEWED: I personally reviewed and interpreting and findings were: CXRay: Chest x-ray was last done on 10/31/2023 EK10/31/2023 @ [facility] NORMAL SINUS RHYTHM ANTEROLATERAL T WAVE ABNORMALITY [...] 1:39 PM 12/19/2023 documented in this encounter [facility] 12-19-2023 History of Present illness Narrative Images from the original note were not included. Pre-Admission Testing Consultation Johnny Devine, [id number] 33 year old Male 12/19/2023 Consult placed to PAT by Mari Yi, due to significant PMH of Hypothyroidism , Bipolar, Autistic disorder ,Epilepsy [facility] Triage Risk Score Total Score: 3 [...] intervention warranted . Patient with Lamaar from [facility] facility during this appointment Patient is here for pre-admission optimization and education prior to surgery. RECENT ILLNESS: Serious illness or hospitalization within the last six months. Yes 10/28/2023 HOSPITAL COURSE: Johnny Devine is a 33 year old male with developmental delay and no PSH who presents as a transfer to [facility] from [facility] ED for further management of small bowel obstruction. Given patient's baseline cognitive status, NGT difficult to maintain. He was admitted to the [facility] under care of general surgery and was taken to the OR the following morning for diagnostic laparoscopy. Intra-operative findings demonstrated no adhesins, no apparent hernias, dilated small/large bowel, redundant sigmoid c/f volvulus, easily reduced. After recovering in the PACU, he was taken to the [facility] with NGT in place. Patient arrived to [facility] with 8 Fr pediatric haskins catheter [...] in home regimen. Stable for discharge to nursing home. Neurology Recommendations on Discharge: - Discharge on [...] DENTAL RESTORATIONS; Surgeon: Harpreet Mccurdy DDS; Location: [facility]; Service: Dental Past Medical History [...] DATA: CBC @ [facility] 11/07/2023 CBC Order: [id number] Component Ref Range & Units 1 mo [...] 0418 141 110 21 91 Comment: The [place] [employer] Association (ADA) provides guidance for cutoff [...] Standards of Medical Care in Diabetes 2016, [place] [employer]. Diabetes Care. 2016.39(Suppl 1). 8 0.70 8.2 11/06/23 0943 146 112 18 83 Comment: The [place] [employer] (ADA) provides guidance for cutoff [...] Standards of Medical Care in Diabetes 2016, [place] [employer]. Diabetes Care. 2016.39(Suppl 1). 6 0.69 8.9 11/05/23 0418 142 112 23 96 Comment: The [place] [employer] Association (ADA) provides guidance for cutoff [...] Standards of Medical Care in Diabetes 2016, [place] [employer]. Diabetes Care. 2016.39(Suppl 1). 5 0.64 7.6 11/04/23 0826 145 112 24 79 Comment: The [place] [employer] Association (ADA) provides guidance for cutoff [...] Standards of Medical Care in Diabetes 2016, [place] [employer]. Diabetes Care. 2016.39(Suppl 1). 4 0.70 7.7 TESTS REVIEWED: I personally reviewed and interpreting and findings were: CXRay: Chest x-ray was last done on 10/31/2023 EK10/31/2023 @ [facility] NORMAL SINUS RHYTHM ANTEROLATERAL T WAVE ABNORMALITY [...] 1:39 PM 12/19/2023 documented in this encounter [facility] 12-03-2023 Note HNO ID: [id number] Author: OSCAR RUIZ MD Service: ? Author [...] from ongoing urologic care. Oscar Ruiz MD [facility] 12-03-2023 Note Patient Outreach (UR OLMN) JOHNNY DEVINE ([id number]) 1990 Date Time Provider Department 12/03/23 RAFAEL GIRALDO During your visit today, we recorded the following information about you: Allergies As of Date: 12/03/2023 Noted Allergy Reaction BIAXIN (CLARITHROMYCIN) 05/04/2022 14 - Other: See Comments Comments: caregiver does not know Date Reviewed: 12/03/2023 Reviewed by: Sukhdeep Barton [facility] - Fully Assessed Visit Diagnosis:Screening for genitourinary condition [Z13.89] Order(s):URINALYSIS, REFLEX MICROSCOPIC [BKG9215] Order #: [id number] Prescriptions as of 12/06/2023 - cloNIDine HCl [...] mg by mouth two times a day. 199, 1999 - loratadine 10 mg cap Take [...] mouth two times a day. 799, 1999 - LORazepam (ATIVAN) 2 mg tab [...] by mouth two times a day. 0800, 1999 - sertraline (ZOLOFT) 100 mg tablet Take 50 mg by mouth once daily. Take with 50 mg zoloft in the morning. Problem List As Of Date 12/03/2023 Noted Resolved SBO (small bowel obstruction) (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) [G40.909] 11/06/2023 Encounter Status:Closed by WILLIAMS PRODUSER on 12/06/23 [facility] 12-03-2023 History of Present illness Narrative I [...] Oscar Ruiz MD documented in this encounter [facility] 11-28-2023 Note HNO ID: [id number] Author: VICTORIA SANCHEZ APRN.FORKLIFT TRUCK MECHANIC Service: ? Author Type: Nurse Practitioner Type: Progress Notes Filed: 11/28/2023 10:19 Note Text: [facility] Clinic Date: November 28, 2023 Johnny Devine 33 year old male CHIEF COMPLAINT: Patient presents for follow up from surgery. HPI: Here for follow up after diagnostic laparotomy on 10/29/[address] Robin. Patient also underwent a dorsal slit procedure with urology on 10/30/2023 for paraphimosis. Patient with a office automation clerk today to discuss his postoperative course since [...] mouth two times a day. 0200, 1999 loratadine 10 mg cap Take 10 [...] for further surgery discussion Victoria Sanchez, MSN, FLAT LOCKER-FORKLIFT TRUCK MECHANIC November 28, 2023 [facility] 11-28-2023 History of Present illness Narrative [facility] Clinic Date: November 28, 2023 Johnny Devine 33 year old male CHIEF COMPLAINT: Patient presents for follow up from surgery. HPI: Here for follow up after diagnostic laparotomy on 10/29/[address] Robin. Patient also underwent a dorsal slit procedure with urology on 10/30/2023 for paraphimosis. Patient with a office automation clerk today to discuss his postoperative course since [...] for further surgery discussion Victoria Sanchez, MSN, FLAT LOCKER-FORKLIFT TRUCK MECHANIC November 28, 2023 documented in this encounter [facility] 11-28-2023 Nurse Note What is the reason for your visit today? Post op Who is your referring physician? Dr. Sanchez Are you having poor oral intake? NO Have you had unintentional weight loss of 15 lbs/7 Kg in the last 3-6 months? NO Bowels: regular Wound: clean & dry Temperature: No Drains: No documented in this encounter [facility] 11-12-2023 Miscellaneous Notes Called care facility [...] Cris Dinh RN documented in this encounter [facility] 11-07-2023 Note HNO ID: [id number] Author: HERMAN SALOMON RN Service: Care Management Author Type: Registered Nurse Type: Care Mgt Progress Note Filed: 11/07/2023 14:56 Note Text: CARE MANAGEMENT DISCHARGE NOTE SERVICE DATE: November 07, 2023 SERVICE TIME: 2:56 PM Admission Date: 10/28/2023 LOS: 10 days Discharge Arrangement Discharge Arrangement: Intermediate Services Arranged Medical Services: Other: See Comment (no services indicated) Caregiver Assessment Caregiver is ready, willing and able to meet the patient's needs as recommended by the inter-professional team: Yes Name of Caregiver: [facility] Transportation Arrangements Transportation Arrangements: Car Destination: Intermediate Additional Information: Patient d/c ready to Intermediate with no skilled needs identified. Patient and bedside RN aware of plan. shelter to transport patient home via private auto. SIGNATURE: Herman Salomon RN PATIENT NAME: Johnny Devine DATE: November 07, 2023 TIME: 2:55 PM CONTACT #: [phone] [facility] 11-07-2023 Note HNO ID: [id number] Author: GIA MULLER MD Service: General Surgery [...] * DORSAL SLIT FORESKIN EXCEPT - General [facility] 11-07-2023 Note HNO ID: [id number] Author: MAYANK READ RN Service: Nursing Author Type: Registered Nurse Type: Nursing Progress Note Filed: 11/07/2023 09:25 Note Text: Paged primary team of low BP. [facility] 11-06-2023 Note HNO ID: [id number] Author: ALEXANDRA CHAIREZ MD Service: General Surgery [...] Chairez MD General Surgery Resident Екатерина(Jacob No): [phone] Grundfest(Boy Alcaraz Petro): [phone] After 6PM + Weekends: [phone] INTERVAL EVENTS / PERTINENT REVIEW OF SYSTEMS: [...] Pulse: (!) 55 (!) 54 78 Resp: Temp: 36.6 ?C (97.9 ?F) 36.9 ?C [...] * DORSAL SLIT FORESKIN EXCEPT - General [facility] 11-06-2023 Note HNO ID: [id number] Author: BERNARDA SUE MD Service: Neurology General [...] at 23:54 lasting 1 min 20s. Per MAR, patient does not have home ordered medications, [...] DATE: November 06, 2023 TIME: 12:26 AM [facility] 11-05-2023 Note HNO ID: [id number] Author: LEEANN TELLES MD Service: General Surgery [...] to IV Ativan and Recommend nurse page LYNNTETE and record patient's activity if able if [...] as appropriate, non-distended Leeann Telles MD PGY1 [facility] 11-05-2023 Note HNO ID: [id number] Author: JUAQUIN KRISHNAMURTHY, RN Service: Nursing Author Type: Registered Nurse [...] to bedside, Valium ordered at this time. [facility] 11-05-2023 Note HNO ID: [id number] Author: HERMAN SALOMON RN Service: Care Management Author Type: Registered Nurse Type: Care Mgt Progress Note Filed: 11/05/2023 11:21 Note Text: CARE MANAGEMENT PROGRESS NOTE SERVICE DATE: 11/05/2023 SERVICE TIME: 11:20 AM LOS: 8 days [place] Explained: [place] Given: No Reason Not Given: No placements necessary Anticipated # of Days Until Discharge: 4 Needs Prior to Discharge: Needs Prior to Discharge: To Be Determined Post-Acute Discharge Plan: Patient from [facility]. Plan is to return at discharge. sewage plant supervisor is Magi [phone]. Per Magi, she will provide transport at discharge. Magi is requesting an abdominal binder at discharge due to patient's history of self-injurious behavior. 33 year old male POD #7 diagnostic laparoscopy. Patient is non-verbal, developmental delay and lives in nursing home. No skilled needs anticipated. SIGNATURE: Herman Salomon RN PATIENT NAME: Johnny Devine DATE: November 05, 2023 TIME: 11:19 AM PAGER/CONTACT #: [phone] [facility] 11-05-2023 Note HNO ID: [id number] Author: CONNIE CAICEDO MD Service: Neurology General [...] Dr. Almanzar. Connie Caicedo MD 5:49 PM [facility] 11-05-2023 Note HNO ID: [id number] Author: ALEXANDRA CHAIREZ MD Service: General Surgery [...] Chairez MD General Surgery Resident Екатерина(Jacob No): [phone] Grundfest(Boy Alcaraz Petro): [phone] After 6PM + Weekends: [phone] INTERVAL EVENTS / PERTINENT REVIEW OF SYSTEMS: [...] CHLOR -- 112* 112* 112* CO2 -- 23 24 22 BUN -- 5* 4* 5* CREAT -- [...] * DORSAL SLIT FORESKIN EXCEPT - General [facility] 11-04-2023 Note HNO ID: [id number] Author: ALEXANDRA CHAIREZ MD Service: General Surgery [...] Neuro: continue lorazepam TID per neurology(clarified with [facility] and patient has been getting scheduled lorazepam [...] Chairez MD General Surgery Resident Екатерина(Jacob No): [phone] Grundfest(Boy Alcaraz Petro): [phone] After 6PM + Weekends: [phone] INTERVAL EVENTS / PERTINENT REVIEW OF SYSTEMS: [...] * DORSAL SLIT FORESKIN EXCEPT - General [facility] 11-03-2023 Note HNO ID: [id number] Author: ZAIRA ROBERT MD Service: General Surgery [...] (Res) November 03, 2023, 10:29 AM P: [phone] INTERVAL EVENTS / PERTINENT REVIEW OF SYSTEMS: [...] * DORSAL SLIT FORESKIN EXCEPT - General [facility] 11-03-2023 Note HNO ID: [id number] Author: LYLE TRINIDAD RN Service: ? Author Type: Registered Nurse Type: Progress Notes Filed: 11/03/2023 22:32 Note Text: This commercial real estate underwriter was called by another nurse that pt had a witnessed 20 seconds of seizure episode. AMET called and team notified and orders given. [facility] 11-02-2023 Note HNO ID: [id number] Author: LEEANN TELLES MD Service: General Surgery [...] as appropriate, non-distended Leeann Telles MD PGY1 [facility] 11-02-2023 Note HNO ID: [id number] Author: HERMAN SALOMON RN Service: Care Management Author Type: Registered Nurse Type: Care Mgt Progress Note Filed: 11/02/2023 11:43 Note Text: CARE MANAGEMENT WEEKEND PLANNING NOTE DISCHARGE OR POSSIBLE DISCHARGE Date/Time: TBD Disposition: Intermediate Transport: Car /Magi Other Concerns: Patient from [facility]. Plan is to return at discharge. sewage plant supervisor is Magi [phone]. Per Magi, she will provide transport at discharge. She will need to be contacted if patient ready to discharge over the weekend. Magi is requesting an abdominal binder at discharge due to patient's history of self-injurious behavior. 33 year old male POD #4 diagnostic laparoscopy. Patient is non-verbal, developmental delay and lives in nursing home. Weekend Senior Commissary Agent Pager #: Please see Treatment Team for Care Management Weekend/Holiday coverage. SIGNATURE: Herman Salomon RN PATIENT NAME: Johnny Devine DATE: November 02, 2023 TIME: 11:42 AM PAGER/CONTACT #: [phone] [facility] 11-02-2023 Note HNO ID: [id number] Author: FRANCK MAGDALENO MD Service: General Surgery [...] Andrews MD Acute Care Surgery Resident PAGER [phone] INTERVAL EVENTS / PERTINENT REVIEW OF SYSTEMS: [...] Pulse: (!) 48 (!) 156 Resp: 16 24 17 19 Temp: 36.5 ?C (97.7 ?F) 36.9 ?C [...] * DORSAL SLIT FORESKIN EXCEPT - General [facility] 11-01-2023 Note HNO ID: [id number] Author: ANA LUISA FARR MD Service: General Surgery Author Type: Resident Type: Progress Notes Filed: 11/02/2023 05:25 Note Text: GENERAL SURGERY PROGRESS NOTE ASSESSMENT AND PLAN: Jonhny Devine is a 33 year old male [...] Farr MD Acute Care Surgery Resident PAGER [phone] INTERVAL EVENTS / PERTINENT REVIEW OF SYSTEMS: [...] * DORSAL SLIT FORESKIN EXCEPT - General [facility] 10-31-2023 Note HNO ID: [id number] Author: ANA LUISA FARR MD Service: General [...] Farr MD Acute Care Surgery Resident PAGER [phone] INTERVAL EVENTS / PERTINENT REVIEW OF SYSTEMS: [...] 0811 10/30/23 0537 10/29/23 0258 10/29/23 0252 10/28/239 WBC 9.59 11.73* -- 14.09* -- HB [...] Drain Duration Indwelling Urinary Catheter 10/30/23 0811 [facility]ins 10 Fr 1 day SURGERY/PROCEDURE: Procedure(s) and Anesthesia Type: * DORSAL SLIT FORESKIN EXCEPT - General [facility] 10-31-2023 Note HNO ID: [id number] Author: HEAVEN CAMACHO MD Service: Urology Author [...] clinical indicators: x Hypophosphatemia Other, please specify [facility] 10-31-2023 Note HNO ID: [id number] Author: BEATRIZ MEHTA MD Service: General Surgery [...] Mehta MD General Surgery Resident General Surgery: [id number] On nights (6 pm to 6 am) and on Weekends/Holidays, please page the on-call pager: [phone] 10/31/23 2:39 AM [facility] 10-31-2023 Note HNO ID: [id number] Author: JUAQUIN KRISHNAMURTHY RN Service: Nursing Author Type: Registered Nurse Type: Progress Notes Filed: 10/31/2023 01:48 Note Text: Messaged Night team Dr. Mehta about haskins drainage turning bloody. Patient is asleep and comfortable [facility] 10-30-2023 Note HNO ID: [id number] Author: JEREMIE JOAQUIN MD Service: ? Author [...] Image in Chart: No SIGNATURE: Nilay Zimmer APRN.[place]AN[place] MACHINE OPERATOR PATIENT NAME: Johnny Devine DATE: October 30, 2023 TIME: 8:11 AM CSN: [id number] [facility] 10-30-2023 Note HNO ID: [id number] Author: JEREMIE JOAQUIN MD Service: ? Author Type: Anesthesiologist Type: Anesthesia Procedure Notes Filed: 10/30/2023 11:59 Note Text: ANESTHESIOLOGY PROCEDURE NOTE Airway General Information Procedure Start Time/Medication Administration: 10/30/2023 7:46 AM Patient location during procedure: OR Timeout Performed Pre-procedure: timeout performed Consent Obtained: Yes Patient identity confirmed: arm band, care steamship agent and patient Staffing Anesthesiologist: Jeremie Joaquin MD Performed by: SRNA and anesthesiologist Indications and Patient Condition Indications for airway management: anesthesia Preoxygenated: yes anesthesia circuit Patient position: sniffing Method: rapid sequence Cricoid Pressure: No Manual In-Line Stabilization: No Difficult Mask: No Final Airway Details Final airway type: endotracheal airway Final Endotracheal Airway: ETT Cuffed: yes Successful intubation technique: video laryngoscopy Devices used: XZERES Endotracheal tube insertion site: oral Blade size: [...] October 30, 2023 TIME: 7:58 AM CSN: [id number] [facility] 10-30-2023 Note HNO ID: [id number] Author: FRANCK MAGDALENO MD Service: General Surgery [...] Andrews MD Acute Care Surgery Resident PAGER [phone] INTERVAL EVENTS / PERTINENT REVIEW OF SYSTEMS: [...] 140/84 Pulse: 74 77 75 79 Resp: 19 18 17 Temp: 37.2 ?C (99 ?F) 36.7 ?C [...] <1 day Indwelling Urinary Catheter 10/30/23 0130 [facility] 8 Fr <1 day SURGERY/PROCEDURE: Procedure(s) and Anesthesia Type: * DORSAL SLIT FORESKIN EXCEPT - General [facility] 10-29-2023 Note HNO ID: [id number] Author: HERMAN SALOMON RN Service: Care Management [...] by: Per Department Practice Potential Transition Plans Intermediate/Supervised Living Advance Directives Current Advance Directive: Other Document: See Comment (Legal guardian) In Chart: Yes Up To Date and Valid: Yes Current Living Arrangements and Support Lives with: Other person(s) [facility] Type of Residence: Intermediate Care Facility Name: [facility] Support: Home care staff, Family members How do you manage to accomplish the following: Independent: Ambulation Dependent: Bathe/Shower;Dress;Meals/Meal Prep;Going to the bathroom;Medication Management;Transportation to appointments/community Current Services/Equipment Current Post-Acute Service(s): None [place] Explained: [place] Given: No Reason Not Given: No placements necessary Are you interested in bedside delivery of your medications? No Discharge Planning Participant(s): Other person(s);Guardian Name/Relationship: Magi/Javascript Web Developer Patient/Family Comments: Caregiver Assessment: Caregiver is ready, willing and able to meet the patient's needs as recommended by the inter-professional team: Yes Name of Caregiver: [facility] Transport at Discharge: Transportation Arrangements: Car Destination: Home Needs Prior to Discharge: Needs Prior to Discharge: To Be Determined Post-Acute Discharge Plan: 33 year old male POD #0 diagnostic laparoscopy. Patient is non-verbal, developmental delay and lives in nursing home. CM met with patient's legal guardian Delbert and group sales representative Magi at bedside. Plan is to return to nursing home at discharge. Per Magi [phone]. [phone], she will provide transport. Magi is requesting an abdominal binder at discharge due to patient's history of self-injurious behavior. CM will continue to follow for transitional care needs. SIGNATURE: Herman Salomon RN PATIENT NAME: Johnny Devine DATE: October 29, 2023 TIME: 4:00 PM CONTACT #: [phone] [facility] 10-29-2023 Note HNO ID: [id number] Author: KENZIE MORE APRN.[place]AN[place]Y MACHINE OPERATOR Service: ? Author Type: Nurse Lathe Operator Type: Anesthesia Procedure Notes Filed: 10/29/2023 10:18 Note Text: ANESTHESIOLOGY PROCEDURE NOTE Airway General Information Procedure Start Time/Medication Administration: 10/29/2023 10:00 AM Patient location during procedure: OR Timeout Performed Pre-procedure: timeout performed Consent Obtained: Yes Patient identity confirmed: arm band, care steamship agent and family Staffing [place] MACHINE OPERATOR: Kenzie More APRN.[place]AN[place]Y MACHINE OPERATOR Indications and Patient Condition Indications for airway management: anesthesia Preoxygenated: yes anesthesia circuit Method: rapid sequence Difficult Mask: No Final Airway Details Final airway type: endotracheal airway Final Endotracheal Airway: ETT Cuffed: yes Successful intubation technique: video laryngoscopy Devices used: XZERES Endotracheal tube insertion site: oral Blade: Raj Blade size: #4 ETT size (mm): 7.5 Placement verified by: capnometry Cormack-Lehane Classification: grade I - full view of glottis Number of attempts at approach: 1 Failed airway: no Unrecognized esophageal intubation: no Airway not difficult SIGNATURE: Kenzie More APRN.CRNA PATIENT NAME: Johnny Devine DATE: October 29, 2023 TIME: 10:17 AM CSN: [id number] [facility] 10-29-2023 Note HNO ID: [id number] Author: ANA LUISA FARR MD Service: General [...] Farr MD Acute Care Surgery Resident PAGER [phone] INTERVAL EVENTS / PERTINENT REVIEW OF SYSTEMS: [...] Anesthesia Type: * EXPLORATORY LAPAROTOMY - General [facility] 10-28-2023 History of Past i llness Narrative Problem Noted Date Diagnosed Date Resolved Date SBO (small bowel obstruction) 10/28/2023 10/31/2023 documented as of this encounter (statuses as of 11/12/2023) [facility]03-10-2024 History of Past illness Narrative* Problem Noted Date Diagnosed Date Resolved Date SBO (small bowel obstruction) 10/28/2023 10/31/2023 documented as of this encounter (statuses as of 11/29/2023) [facility]-10-2024 History of Past illness Narrative* Problem Noted Date Diagnosed Date Resolved Date SBO (small bowel obstruction) 10/28/2023 10/31/2023 documented as of this encounter (statuses as of 12/04/2023) [facility]-10-2024 History of Past illness Narrative* Problem Noted Date Diagnosed Date Resolved Date SBO (small bowel obstruction) 10/28/2023 10/31/2023 documented as of this encounter (statuses as of 12/06/2023) [facility]11-27-2023 Hospital Discharge instructions* Discharge Instructions* Yobany [...] be sent through Care Everywhere. * Bradycardia (Congolese) documented in this [id number] NoteSurgical Attestation: I have reviewed the patient's History and Physical Examination. I have personally seen and evaluated the patient, repeating knox portions. There is no significant interval change. Surgery is still indicated. Yes Consent reviewed and signed by patient/family: Yes Operative site verified and marked: site verified but not marked as not anatomically possible Bobbi Oswald DDS 07/16/2023 7:09 AMThe [facility] [id number] Emergency department Note* Leila Cifuentes RN - 07/16/2023 8:01 AM EST Permission treat given from Caet legal guardian [id number] Emergency department Note* Leila Cifuentes RN - 07/16/2023 8:01 AM EST Permission treat given from Cate legal guardian documented in this [id number] Evaluation + Plan note Diagnostic Tests Pending * [place] Level 07/04/23 [facility]11-07-2023 Telephone encounter Note* Telephone Encounter - Shanna Sauceda RN - 06/26/2023 11:14 AM EST Informed Consent for dental surgery & Anesthesia consent obtained and scanned into [employer]. Scheduled for surgery 07/16/2023. [id number] Miscellaneous Notes* Telephone Encounter - Shanna Sauceda RN - 06/26/2023 11:14 AM EST Informed Consent for dental surgery & Anesthesia consent obtained and scanned into [employer]. Scheduled for surgery 07/16/2023. documented in this [id number] NotePresurgical Evaluation (Pre-Admission Testing) Consultation Johnny Devine, [id number] 32 year old Male 06/22/2023 Consult placed [...] DENTAL RESTORATIONS; Surgeon: Harpreet Mccurdy DDS; Location: [facility]; Service: Dental ANESTHESIA REVIEW OF [...] T wave abnor (more content not included)...[facility] [id number] Evaluation note* PSE Appt H&P - Lacey Wilson MD - 06/22/2023 3:10 PM EDT Presurgical Evaluation (Pre-Admission Testing) Consultation Johnny Devine, [id number] 32 year old Male 06/22/2023 Consult placed [...] DENTAL RESTORATIONS; Surgeon: Harpreet Mccurdy DDS; Location: [facility]; Service: Dental ANESTHESIA REVIEW OF [...] - referring and communicating with other health home care manager (when not separately reported) - documenting clinical information in the electronic or other health record - independently interpreting results (not separately reported) and communicating results to the patient/family/caregiver - care coordination (not separately reported). Interviewer signature: Lacey Wilson MD 3:10 PM 06/22/2023 [id number] Miscellaneous Notes* PSE Appt H&P - Lacey Wilson MD - 06/22/2023 3:10 PM EDT Presurgical Evaluation (Pre-Admission Testing) Consultation Johnny Devine, [id number] 32 year old Male 06/22/2023 Consult placed [...] DENTAL RESTORATIONS; Surgeon: Harpreet Mccurdy DDS; Location: [facility] [place]; Service: Dental ANESTHESIA REVIEW OF SYSTEMS: Eyes/ENT: [...] - referring and communicating with other health home care manager (when not separately reported) - documenting clinical information in the electronic or other health record - independently interpreting results (not separately reported) and communicating results to the patient/family/caregiver - care coordination (not separately reported). Interviewer signature: Lacey Wilson MD 3:10 PM 06/22/2023 documented in this [id number] Miscellaneous Notes* Telephone Encounter - Lory Dan [facility] - 05/18/2022 3:18 PM EDT Cate, aunt, was leaving Dr Morales a message: At this time, the family would like to hold off on cataract surgery. Fyi * Telephone Encounter - Grupo Morales MD - 05/18/2022 2:23 PM EDT Called today and yesterday after clinic to discuss. No answer, left msg to call back and leave a message. * Telephone Encounter - [employer] - 05/17/2022 3:31 PM EDT Pt's aunt returning a call to Dr. Morales to discuss eye care for Johnny. Please try to reach her again at [phone] (Cate Tin) documented in this encounterZ[facility]09-19-2022 Miscellaneous Notes* Telephone Encounter - [employer] - 05/08/2022 9:01 AM EDT Nurse from [facility] where he [facility] called for [facility] for his file. Attn: Melanie Pickard [phone]. Surgery schedulers name and # was provided. documented in this encounterZanesville City Hospital09-16-2022 Miscellaneous Notes* Telephone Encounter - Grupo [...] ADLs currently. He currently lives in a nursing home and has a significant history of self-injurious behaviors including banging his head on things and punching his eyes. She believes cataract tarun result of trauma, and I agree with her. These behaviors still happen on a weekly basis, and whilethere's 12/03 supervision at the nursing home, he has a lot of private time [...] go and call me next week. Grupo Moraels MD documented in this encounterZanesville City Hospital09-15-2022 History of Present illness Narrative* Angel [...] 04, 2022 10:56 AM documented in this encounterZanesville City Hospital08-10-2022 Telephone encounter Note * Telephone Encounter - Jose Miguel Jones - 03/29/2022 1:12 PM EDT Care Gaps Scheduling Contact Details: I did not contact pt. Encounter 07/15/21 indicates pt does not see providers at [facility] at this time. Health Maintenance Due: Medicare AWV / PCP Visit: Due Eye Exam: Not due Foot Exam: Not due Annual Blood Work: Due Mammogram: N/A FIT: Not due [id number] Miscellaneous Notes* Telephone Encounter - Jose Miguel Jones - 03/29/2022 1:12 PM EDT Care Gaps Scheduling Contact Details: I did not contact pt. Encounter 07/15/21 indicates pt does not see providers at [facility] at this time. Health Maintenance Due: Medicare AWV / PCP Visit: Due Eye Exam: Not due Foot Exam: Not due Annual Blood Work: Due Mammogram: N/A FIT: Not due documented in this encounterSt. [facility] Hospital[facility]HealthEvaluation [facility]* Diagnosis Combined forms of age-related cataract of right eye- Primary Other and combined forms of senile cataract documented in [facility] encounter [facility]* Diagnosis Caries- Primary Unspecified dental [...] aftercare following surgery [facility] Phimosis- Primary Redundant prepuce and phimosis documented in this encounter [facility]* Diagnosis Screening for genitourinary condition Screening for other and unspecified genitourinary condition [facility]* Diagnosis Caries- Primary Unspecified dental caries Pre-op testing- Primary Preoperative examination, unspecified Body mass index (BMI) 31.0-31.9, adult Caries Unspecified dental caries [facility] Diagnosis Sigmoid volvulus (HCC)- Primary Volvulus [facility]* Diagnosis Caries- Primary Unspecified dental caries Pre-op testing- Primary Preoperative examination, unspecified Body mass index (BMI) 31.0-31.9, adult Caries Unspecified dental caries [facility]* Diagnosis Caries- Primary Unspecified dental caries [facility]* Diagnosis Alteration of awareness- Primary [facility] Narrative No data available for this section [facility] No data available for this section [facility] No data available for this section [facility] Summary Purpose Family History No Family [...] Caries Harpreet Mccurdy, DDS [address] [place] [id number] [facility] PRE SURGICAL EVAL [address] [place] [address] Referral ID Status Reason Start Date Expiration Date V isits Requested Visits Authorized [id number] Pending Review 05/25/2023 05/25/2024 1 1 Scheduling Instructions Your surgical team will reach out to you to schedule a preadmission testing appointment. Question Answer Reason for consult? Recommended PSE Risk Score Specialty Diagnoses / Procedures Referred By Johan mcfadden Referred To Contact Radiology Diagnoses Pre-op exam Procedures XR CHEST PA+LAT 2 VIEWS Franc Beyer MD [address] [place] [address] [facility] DIAGNOSTIC RADIOLOGY [address] [place] [id number] Referral ID Status Reason Start Date Expiration Date Visits Re quested Visits Authorized [id number] Closed 06/22/2023 06/21/2024 1 1 Specialty Diagnoses / Procedures Referred By Johan mcfadden Referred To Contact Cardiology Diagnoses Bradycardia History of autism Nonverbal Moderate intellectual disability Yobany Smith PA-C [address] [place] [address] [facility] CARDIOLOGY HV [address] [place] [address] Referral ID Status Reason Start Date Expiration Date V isits Requested Visits Authorized [id number] Pending Review 07/16/2023 07/16/2024 3 3 Scheduling Instructions Please call the [facility] at [phone] to schedule an appointment if one was not made for you today. Question Answer What is the primary reason for consult? Abnormal EKG [13] - nonverbal patient, asymptomatic bradycardia on lopressor At what location would you like the patient to be seen? [place] ([address]) Specialty Diagnoses / Procedures Referred By Contac t Referred To Contact Colon and Rectal Surgery Diagnoses Sigmoid volvulus (HCC) Procedures CONSULT TO COLO-RECTAL SURGERY OFFICE/OUTPATIENT [facility] 60 MINUTES Victoria Sanchez APRN.[facility] [address] [place], [place] [id number] Juventino Fairbanks MD [address] [place] [address] Referral ID Status Reason Start Date Expiration Date Visits Requested Visits Authorized [id number] Authorized PCP Requested Referral 12/20/2023 12/19/2024 1 [...] PA+LAT 2 VIEWS Franc Beyer MD [address] [place] [address] [facility] DIAGNOSTIC RADIOLOGY [address] [place] [phone] Referral ID Status Reason Start Date Expiration Date Visits Re quested Visits Authorized [id number] Closed 06/22/2023 06/21/2024 1 1 Reason Onset Date Comments Pre-surgical Evaluation 06/26/2023 Informed Consent for dental surgery & Anesthesia consent obtained Reason Comments bradycardia Low HR (33) Specialty Diagnoses / Procedures Referred By Contac t Referred To Contact Ambulatory Surgery Diagnoses Caries 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 CHRISTINA completed - consent request sent to main - see future encounter for results. 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] Procedures UNLISTED PROCEDURE, DENTOALVEOLAR STRUCTURES ANESTHESIA, INTRAORAL PROC, W/BX; NOS DENTAL RESTORATIONS Mari Yi, ANIYAH [address] [place], [place] [id number] [facility] [address] [place] [phone] Phone: [phone] Referral ID Status Reason Start Date Expiration Date Visits Re quested Visits Authorized [id number] 3 3 Reason Comments Seizures Care Teams (unrecognized sec tion and content) Personnel Representative Relationship Specialty Start Date End Date Aileen Corcoran DDS [address] [place] [address] Resident Dentistry 08/20/20 Personnel Representative Relationship Specialty Start Date End Date Aileen Corcoran DDS [address] [place] [address] Resident Dentistry 08/20/20 Personnel Representative Relationship Specialty Start Date End Date Aileen Corcoran DDS [address] [place] [address] Resident Dentistry 08/20/20 Personnel Representative Relationship Specialty Start Date End Date Aileen Corcoran DDS [address] [place] [address] Resident Dentistry 08/20/20 Personnel Representative Relationship Specialty Start Date End Date Aileen Corcoran DDS [address] [place] [address] Resident Dentistry 08/20/20 Personnel Representative Relationship Specialty Start Date End Date Aileen Corcoran DDS [address] [place] [address] Resident Dentistry 08/20/20 Personnel Representative Relationship Specialty Start Date End Date Aileen Corcoran DDS [address] [place] [address] Resident Dentistry 08/20/20 Personnel Representative Relationship Specialty Start Date End Date Aileen Corcoran DDS [address] [place] [address] Resident Dentistry 08/20/20 Personnel Representative Relationship Specialty Start Date End Date Aileen Corcoran DDS [address] [place] [address] Resident Dentistry 08/20/20 Personnel Representative Relationship Specialty Start Date End Date Aileen Corcoran DDS [address] [place] [address] Resident Dentistry 08/20/20 Personnel Representative Relationship Specialty Start Date End Date Aileen Corcoran DDS [address] [place] [address] Resident Dentistry 08/20/20 Personnel Representative Relationship Specialty Start Date End Date Aileen Corcoran DDS [address] [place] [address] Resident Dentistry 08/20/20 Personnel Representative Relationship Specialty Start Date End Date Aileen Corcoran DDS [address] [place] [address] Resident Dentistry 08/20/20 Ling Coffman APRN-CNP [address] [place] [address] 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 01/19/24 Source Comments (unrecognize d section and content) In the event this informatio n is protected by the Federal Confidentiality of Alcohol and Drug Abuse Patient Records regulations: The Federal rules restrict any use of the information to criminally investigate or prosecute any alcohol or drug abuse patient.[facility] HospitalIn the event this information is protected by the Federal Confidentiality of Alcohol and Drug Abuse Patient Records regulations: The Federal rules restrict any use of the information to criminally investigate or prosecute any alcohol or drug abuse patient.[facility] HospitalIn the event this information is protected by the Federal Confidentiality of Alcohol and Drug Abuse Patient Records regulations: The Federal rules restrict any use of the information to criminally investigate or prosecute any alcohol or drug abuse patient.[facility] HospitalIn the event this information is protected by the Federal Confidentiality of Alcohol and Drug Abuse Patient Records regulations: The Federal rules restrict any use of the information to criminally investigate or prosecute any alcohol or drug abuse patient.[facility] HospitalIn the event this information is protected by the Federal Confidentiality of Alcohol and Drug Abuse Patient Records regulations: The Federal rules restrict any use of the information to criminally investigate or prosecute any alcohol or drug abuse patient.[facility] HospitalIn the event this information is protected by the Federal Confidentiality of Alcohol and Drug Abuse Patient Records regulations: The Federal rules restrict any use of the information to criminally investigate or prosecute any alcohol or drug abuse patient.[facility] HospitalIn the event this information is protected by the Federal Confidentiality of Alcohol and Drug Abuse Patient Records regulations: The Federal rules restrict any use of the information to criminally investigate or prosecute any alcohol or drug abuse patient.[facility] HospitalIn the event this information is protected by the Federal Confidentiality of Alcohol and Drug Abuse Patient Records regulations: The Federal rules restrict any use of the information to criminally investigate or prosecute any alcohol or drug abuse patient.[facility] HospitalIn the event this information is protected by the Federal Confidentiality of Alcohol and Drug Abuse Patient Records regulations: The Federal rules restrict any use of the information to criminally investigate or prosecute any alcohol or drug abuse patient.[facility] HospitalIn the event this information is protected by the Federal Confidentiality of Alcohol and Drug Abuse Patient Records regulations: The Federal rules restrict any use of the information to criminally investigate or prosecute any alcohol or drug abuse patient.[facility] (unrecognized sect ion and content) No Status Records FoundNo Status Records FoundNo Status Records FoundNo Status Records FoundNo Status Records FoundNo Status Records Found INFORMATION SOURCE (unrecogn ized section and content) DATE CREATED AUTHOR 01/26/2023 [facility] DATE CREATED AUTHOR AUTHOR'S ORGANIZ ATION 01/05/2024 [facility] DATE CREATED AUTHOR AUTHOR'S ORGANIZ ATION 01/13/2024 [facility] DATE CREATED AUTHOR AUTHOR'S ORGANIZ ATION 02/15/2024 [employer] [facility] DATE CREATED AUTHOR AUTHOR'S ORGANIZ ATION 02/22/2024 Benson Mike [facility] DATE CREATED AUTHOR AUTHOR'S ORGANIZ ATION 05/22/2024 [facility] EPIC Scheduled Active and Recently Administ ered Medications (unrecognized section and content) Medication Order 07/14/2023 07/15/2023 07/16/2023 lactated ringers iv bolus (COMPLETED) 1,000 mL, at 9,999 mL/hr, Intravenous, FLUID BOLUS, 1 dose, On 07/16/23 at 0954 0932 (IV New Bag - P rovider: Jose Miguel Colbert, MIRIAM)[id number] (IV Stop - Provider: Jose Miguel Colbert RN) PRN Medication Order 12/26/2023 12/27/2023 12/28/2023 acetaminophen [...] socket sites after extraction) lidocaine-epinephrine (XYLOCAINE) 2 %-1:367431 injection (CANCELED) PRN, Starting on Sun12/28/23 at [...] BE BASED ON THE PRIMARY CLINICAL RECORDS. [employer] [facility]. provides no warranty or guarantee of the accuracy or completeness of information in this document.
[2024-07-01 07:48] LABS: Basophils Absolute Auto 0.1 10^3/uL (0.0-0.1); Basophils Percent Auto 0.8 % (0.2-2.0); Eosinophils Absolute Auto 0.2 10^3/uL (0.0-0.7); Eosinophils Percent Auto 2.6 % (0.9-7.0); Hematocrit 39.2 % (42.0-54.0); Hemoglobin 12.3 g/dL (14.0-18.0); Immature Granulocytes Abs Auto 0.05 10^3/uL (0.00-0.03); Immature Granulocytes Pct Auto 0.6 % (0.0-0.5); Lymphocytes Absolute Auto 3.2 10^3/uL (1.2-3.8); Lymphocytes Percent Auto 40.7 % (20.5-60.0); Mean Corpuscular HGB Conc 31.4 g/dL (29.9-35.2); Mean Corpuscular Hemoglobin 26.6 pg (25.9-34.0); Mean Corpuscular Volume 84.7 fL (80.0-94.0); Mean Platelet Volume 9.6 fL (9.5-13.5); Monocytes Absolute Auto 0.6 10^3/uL (0.3-0.8); Monocytes Percent Auto 8.2 % (1.7-12.0); Neutrophils Absolute Auto 3.7 10^3/uL (1.4-6.5); Neutrophils Percent Auto 47.1 % (43.0-75.0); Platelet Count 212 10^3/uL (150-450); Red Blood Count 4.63 10^6/uL (4.70-6.10); Red Cell Distribution Width 13.8 % (11.0-15.0); White Blood Count 7.8 10^3/uL (4.0-11.0)
[2024-07-01 09:13] LABS: Alanine Aminotransferase 9 U/L (16-63); Albumin Globulin Ratio 0.9; Albumin Level 3.4 g/dL (3.4-5.0); Alkaline Phosphatase 62 U/L (46-116); Anion Gap 14.9; Aspartate Amino Transferase 10 U/L (15-37); BUN Creatinine Ratio 18.8; Bilirubin Total 0.2 mg/dL (0.2-1.0); Calcium 9.6 mg/dL (8.5-10.1); Carbon Dioxide 25.4 mmol/L (21.0-32.0); Chloride 105 mmol/L (98-107); Chol HDL Ratio 3.3; Cholesterol 172 mg/dL (<=200); Estimated GFR (African America >60 (>=60 mL/min/1.73m^2); Estimated GFR (Non-African Ame >60 (>=60 mL/min/1.73m^2); Glucose 89 mg/dL (74-106); HDL Cholesterol 52 mg/dL (40-60); LDL Cholesterol Calculated 90.6 mg/dL; Potassium 4.3 mmol/L (3.5-5.1); Sodium 141 mmol/L (136-145); Thyroid Stimulating Hormone 5.832 uIU/mL (0.358-3.740); Total Protein 7.4 g/dL (6.4-8.2); Triglycerides 147 mg/dL (<=150); VLDL CHOLESTEROL 29.4 mg/dL; Valproic Acid 68.6 ug/mL (50.0-100.0)
[2024-07-01 09:21] LABS: Free T4 0.63 ng/dL (0.76-1.46)
[2024-07-02 05:08] LABS: Lithium (Eskalith(R)), Serum 0.8 mmol/L (0.5-1.2)
== END 2024-07-01 07:00 | disposition home or self-care (01) ==
LOC: LAB 06:59
PROVIDERS: PCP Family Medicine; Visit Provider Family Medicine
DX: E03.9 Hypothyroidism, unspecified (principal); G40.909 Epilepsy, unspecified, not intractable, without status epilepticus; K59.00 Constipation, unspecified; Z79.899 Other long term (current) drug therapy; F31.9 Bipolar disorder, unspecified
CPT/HCPCS: 36415; 80053; 80061; 80164; 80178; 82306; 84439; 84443; 84481; 85025

== ENCOUNTER 2024-12-01 07:46 | Outpatient (OUT) | payer MEDICARE, MEDICAID, SELFPAY ==
--- OUTSIDE RECORDS SUMMARY | 2024-12-01 07:51 | XMS_ITS | CCD ---
Author Organization [facility] CliniSynm Care Team Providers Care Payroll Auditor Name Role Phone Jewell MATA, Gallagher Unavailable [...] Gallagher Unavailable HERMAN CRANE Primary Care Physician [phone] Unavailable Primary Care Provider Unavailabl e Unavailable [...] UNKNOWN Attending Unavailable PHOENIX CARDENAS Referring Unavailable SAMUEL ROBIN Admitting Unava ilable ELIU GAN Attending Unavailable CHEHROSCAR HUIZAR Attending Unavailable DANIELVICTORIA Attending Unavailable CRANE, HERMAN Attending Unavailable CRANE, HERMAN Admitting Unavailable CRANE, HERMAN Admitting Unavailable CRANE, HERMAN Attending Unavailable CRANE, HERMAN Attending Unavailable CRANE, HERMAN Admitting Unavailable Markiv SASH MAKER-STOCK PARTS FABRICATOR, Ling Unavailable EPIFANIO HUNTLEY Attending Unavailable EPIFANIO HUNTLEY Referring Unavailable CRIS WALTERS Attending Unavailable CRIS WALTERS Attending Unavailable Unavailable Primary Care Provider Unavailabl e Unavailable Primary Care Provider Unavailabl e Allergies Allergy Classification Reported Allergen(s) Allergy Type Date of Onset Reaction(s) Facility Macrolides (antibiotic) (1 source) Clarithromycin Drug Allergy 05-04-20 Other: See Comments [facility] (20 sources) Clarithromycin; Translations: [CLARITHROMYCIN] Propensity to adverse reactions to drug 06-12-20 [facility] (9 sources) Clarithromycin Drug Allergy 05-04-20 Other: See Comments [facility] (1 source) Clarithromycin Drug Allergy [facility] Repository Medications Current Medications Medication Drug Class(es) Dates Sig (Normalized) Sig (Original) acetaminophen 500 mg oral tablet (5 sources) Start: 12-28-2023 take 1 tablet by mouth every six hours as needed for pain acetaminophen (TYLENOL) 500 MG tablet Take 1 Tablet by mouth every 6 hours as needed for Pain or Fever. 56 Tablet 12/28/2023 11:19 AM EDT 12/28/2023 Active Start: 12-28-2023 End: 12-28-2023 acetaminophen [...] chew. Active bisacodyl 10 mg rectal suppository (10 sources) Stimulant Laxative Start: 08-23-2023 End: 12-03-2023 [...] Take 1 tablet by linda twice daily. Calcium Carbonate-Vitamin D (Oyster Shell Calcium/D) 500-200 MG-UNIT TABS (1 source) Start: take 1 tablet by mouth twice daily Calcium Carbonate-Vitamin D (Oyster Shell Calcium/D) 500-200 MG-UNIT TABS Take 1 Tablet by mouth 2 times daily. 01/13/2021 Active chlorhexidine gluconate 1.2 mg/ml mouthwash (4 sources) Start: chlorhexidine (Peridex) 0.12 % oral solution Swish and expectorate twice a day. Do not swallow 473 mL 12/28/2023 11:19 AM EDT 12/28/2023 Active clomiPRAMINE hydrochloride 75 mg oral [...] th three times a day. 0800, 1600, 1999 [...] only. docusate sodium 100 mg oral capsule (18 sources) take 1 capsule by mouth twice daily docusate sodium (COLACE) 100 MG capsule Take 100 mg by mouth 2 times daily. Active famotidine 20 mg oral tablet (20 sources) Histamine-2 Receptor Antagonist Start: famotidine (PEPCID) 20 mg tablet fluticasone propionate 0.05 mg/actuat metered dose nasal spray (20 sources) Corticosteroid Start: 08-02-2 022 take 2 spray(s) nasal route once in [...] MG tablet guanfacine 1 mg tablet Active take 2 tablets by mouth in the m orning guanFACINE (Tenex) 2 MG tablet Take 2 tablets by mouth in the morning. Active Comment on above: Take 4 mg by mouth o nce daily. ibuprofen 600 mg oral tablet (4 sources) Nonsteroidal Anti-inflammatory Drug Start: 12-28-19 24 take 1 tablet by mouth every six hours as needed for pain ibuprofen (MOTRIN) 600 MG tablet Take 1 Tablet by mouth every 6 hours as needed for Pain. 56 Tablet 12/28/2023 11:19 AM EDT 12/28/2023 Active levothyroxine sodium 0.112 mg oral [...] 6 hours as needed for Anxiety. Active take 1 tablet by linda th every eight hours as needed for anxiety LORazepam (Ativan) 2 MG tablet Take 2 mg by mouth every 8 (eight) hours if needed for anxiety Active Comment on above: TAKE ONE TABLET BY M OUTH 3 TIMES DAILY ATIVAN metoprolol tartrate 50 mg oral tablet (20 sources) beta-Adrenergic Antony Start: 01-22-20 21 metoprolol (LOPRESSOR) 50 MG tablet 01/21/2021 Active montelukast 10 mg oral tablet (13 sources) Leukotriene Receptor Antagonist take 1 tablet [...] Active naloxone hydrochloride 40 mg/ml nasal spray (4 sources) Opioid Antagonist Start: 12-28-19 24 naloxone 4 mg/0.1 mL nasal liquid Use 1 [place] in one nostril (alternate sides) as needed [...] nausea or vomiting Active polyethylene glycol 3350 24089 mg powder for oral solution (20 sources) Osmotic Laxative Start: 1 End: 4 polyethylene glycol 3350 (MIRALAX, GLYCOLAX) 17 gram/dose powder Take 17 g by mouth once daily. 0 03/21/2022 Active Comment on above: TAKE 17G WITH LIQUID BY MOUTH DAILY IN THE MORNING Take 17 g by mouth o nce daily. POLYETHYLENE GLYCOL EXTERNAL (4 sources) Start: 4 take 17 g by [...] t wo times a day. 1999 sennosides, mcc 8.6 mg oral capsule (20 sources) Sennosides ([place] A) 8.6 MG CAPS Take by mouth. Active Comment on above: Take by mouth. Take 8.6 mg by mouth as needed. sertraline 100 mg oral tablet (20 sources) Serotonin Reuptake Inhibitor Start: sertraline (ZOLOFT) 100 mg tablet Start: 04-27-2022 [...] sodium 125 mg delayed release oral capsule (17 sources) Mood Stabilizer, Anti-epileptic Agent Start: 12-12-2023 [...] (Original) benztropine mesylate 0.5 mg oral tablet (15 sources) Anticholinergic, Antihistamine End: 12-28-2023 take 1 [...] usually diagnosed in infancy, childhood, or adolescence (20 sources) Autistic disorder; Translations: [Autistic disorder] Onset: 09-16-1907-15-2019 Chronic Epilepsy; convulsions (14 sources) Epilepsy; Translations: [Epilepsy, unspecified, not intractable, without status epilepticus] Onset: 11-06-19 24 11-07-2023 Chronic Intestinal obstruction without hernia (4 sources) Sigmoid volvulus; Translations: [Volvulus] Onset: 10-28-19 Resolved : 10-31-1912-20-2023 Episodic Malaise and fatigue (9 sources) Weakness; Translations: [Other fatigue] Onset: 11-28-19 Episodic Mood disorders (20 sources) Bipolar disorder; Translations: [Bipolar disorder, unspecified] Onset: 09-16-1907-15-2019 Chronic Osteoporosis (5 sources) Age-related osteoporosis without current pathological fracture; Translations: [AGE-REL OSTEOPOR W/O CURR PATH FX] Onset: 08-25-19 Chronic Other aftercare (5 sources) Other chcf (current) drug therapy; Translations: [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 DRUG THERAPY] Onset: 12-04-19 Episodic Other [...] Date Documented Da te Episodic/Chronic Cardiac dysrhythmias (10 sources) Bradycardia; Translations: [Bradycardia, unspecified] Onset: 07-16-2023 07-16-2023 Episodic Diseases of mouth; excluding dental (18 sources) Mucocele of lower lip; Translations: [Diseases of lips] Onset: 10-16-2019 06-07-2020 Episodic Disorders of teeth and jaw (20 sources) Dental caries; Translations: [Dental caries, unspecified] Onset: 06-11-2018 Resolved: 12-28-2023 06-11-2018 Episodic Other gastrointestinal disorders (17 sources) Chronic constipation; Translations: [Other constipation] Onset: 09-16-2018 07-13-2020 Episodic Other gastrointestinal disorders (1 source) Constipation, unspecified Onset: 09-16-2018 07-13-2020 Episodic Other screening for suspected conditions (not mental disorders or infectious disease) (3 sources) Other specified abnormal findings of blood chemistry; Translations: [Patient encounter status] Onset: 07-07-2022 12-03-2023 Episodic Other skin disorders (17 sources) Eruption; Translations: [Rash and other nonspecific skin eruption] Onset: 09-16-2018 07-13-2020 Episodic Other skin disorders (1 source) Rash and other nonspecific skin eruption Onset: 09-16-2018 07-13-2020 Episodic Results Test Name Value Interpretation Reference Range Facility CHEMISTRYOrdered By: SYSTEM SYSTEM on 02-13-2024 Valpro Acid Lvl 98 microgram/mL Normal 50 - 99 mcg/mL Remisol Chem Physician Orderon 02-13-2024 Physician Order [id number]# 1.00TIFF Normal [facility] Valproic Acidon 02-13-2024 Valpro Acid Lvl 98 microgram/mL Normal 50-99 [facility] Comment on above: Performed By: #### 2 [id number] #### [facility] [address] [place] [address] [facility] 01-11-2024 CNPN Telephone (PATRICK) JOHNNY DEVINE ([id number]) 1990 Date Time Provider Department 01/11/24 CRIS DINH During your visit today, we recorded the following information about you: Cris Dinh, RN 01/11/2024 1:50 PM Signed Jessica from [facility] [phone] is caller. 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 Normal [facility] Anesthesia Preprocedure Dwaine menchaca 12-28-2023 Shotweld Operator Authentication Interface Message Text ASA: 3 NPO [...] and physical examination. Attestation: MHPATFORM Normal [facility] Anesthesia Transfer Of Careo n 12-28-2023 Shotweld Operator Authentication Interface Message Text Patient taken to [...] DENTAL RESTORATIONS; Surgeon: Harpreet Mccurdy DDS; Location: [facility] Surgery [facility]; Service: Dental Allergies: Biaxin [clarithromycin] Basic Operating Room Facts: Surgeon(s): Mari Yi DMD Anesthesiologist: Linda Saldivar MD EDGER LINER: Selena Camacho APRN-CRNA DENTAL RESTORATIONS (Bilateral: Mouth) [...] Lines, Drains, Airways Peripheral IV Access: 12/28/23 09 20 gauge Right Antecubital (Active) Site Assessment WNL;Dressing intact 12/28/23934 Infusion Status Port #1 Infusing;Patent 12/28/23 09 Airway Insertion Details [REMOVED] Advanced Airway: ETT, [...] 0418 [phone] 91 Comment: The [place] Diabetes Association (ADA) provides guidance for cutoff [...] Standards of Medical Care in Diabetes 2016, [place] Diabetes Association. Diabetes Care. 2016.39(Suppl 1). 8 0.70 8.2 11/06/23 0943 146 112 18 83 Comment: The [place] Diabetes Association (ADA) provides guidance for cutoff [...] Standards of Medical Care in Diabetes 2016, [place] Diabetes Association. Diabetes Care. 2016.39(Suppl 1). 6 0.69 8 (more content not included)... Normal [facility] Blood Attestationon 12-28-19 24 Shotweld Operator Authentication Interface Message Text Blood Attestation: ATTESTATION OF INFORMED CONSENT FOR BLOOD: The transfusion of blood and/or blood components were discussed with the patient and/or legal dermatology sales representative. The risks, benefits and alternatives were reviewed. Questions regarding blood transfusions were answered. The patient /or the patient's legal dermatology sales representative agree with the plan for transfusion of blood and/or blood components. Normal [facility] Brief Operative Noteon 12-27 Shotweld Operator Authentication Interface Message Text Brief Operative Note PHE OR 3 Johnny Devine 33 year old male Surgical Contact Serial Number: [id number] Preoperative Diagnosis: Pre-op Diagnosis * Caries [K02.9] Moderate intellectual disability [F79] Postoperative Diagnosis: Moderate intellectual disability [F79] Procedures: Comprehensive exam [69402] Full mouth X-ray [ 22487] Extractions [68229] Restorations [94977] Prophy 10586] Fluoride treatment [38903] Surgeon(s): Surgeon(s): Mari Yi DMD Staff: Investment Director Nurse: Henrietta Johnson Anesthesia: General Anesthesia Staff: [...] procedure and procedure sign-out. Signed by Reema hWiting DDS 12/28/2023 1;48 pm Normal [facility] OP Noteon 12-28-2023 Shotweld Operator Authentication Interface Message Text Surgical Case Number Data Unavailable Operating Room Data Unavailable Preoperative Diagnosis(es): Pre-op Diagnosis * Caries [K02.9] Moderate intellectual disability [F79] Postoperative Diagnosis(es): Moderate intellectual disability[F79] @ENCORD@ Surgeon: Dr. Mari Yi, DMD Professor Of Astronomy Surgeon: Reema Whiting DDS Anesthesia: General- Nasal [...] 4 mg/0.1 mL nasal liquid Use 1 [place] in one nostril (alternate sides) as needed [...] Dictated by: Reema Whiting DDS: Dr. Mari Yi, DMD was present for the critical portions of the procedure. Reema Whiting DDS 12/28/2023 1:53 pm Normal [facility] Progress Noteson 12-28-2023 Shotweld Operator Authentication Interface Message Text Patient takes his seizure medication with pudding, facility held them today for dental surgery. Caregiver brought capsules with them to pre-op. Per Dr. Saldivar, divalproex 125 mg x 4 capsules (500 mg) were opened and sprinkles given to patient with 50 mL of water in pre-op. 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 MB cusp tip was visualized upon extraction of #17, but well encased in bone and would not be exposed to the oral cavity following healing of the extraction site. Preoperative Diagnosis(es): Pre-op Diagnosis * Caries [K02.9] Moderate intellectual disability [F79] Postoperative Diagnosis(es): Moderate intellectual disability[F79] Surgeon: Dr. Mari Yi, ANIYAH Professor Of Astronomy Surgeon: Reema Whiting DDS Anesthesia: General- Nasal [...] at end of surgery: Stable Normal [facility] PAT Appt Sandy Shotweld Operator Authentication Interface Message Text Addendum 12/21/2023- Caregiver @ [facility] called to relay that patient unable to take medications without pudding. Per Dr. Newell: Instruct them to take the meds at night. Please then coordinate with either the anesthesia team or surgical team to order IV depacon so he can get his depakote. I would have the facility bring his oral depakote for after surgery If they can't get the depacon at [facility] CHRISTINA RN updated nursing staff @ [facility]. Normal [facility] BASIC METABOLIC PANELon 05-0 Anion gap [Moles/Vol] 13 mmol/L Normal 10-20 [facility] Comment on above: Performed By: #### C H8 #### [facility] [address] [place] [address], Calcium [Mass/Vol] 9.9 mg/dL Normal 8.6-10.3 [facility] Comment on above: Performed By: #### C H8 #### [facility] [address] [place] [address], Chloride [Moles/Vol] 106 mmol/L Normal 98-107 [facility] Comment on above: Performed By: #### C H8 #### [facility] [address] [place] [address], CO2 [Moles/Vol] 25 mmol/L Normal 21-31 [facility] Comment on above: Performed By: #### C H8 #### [facility] [address] [place] [address], Creatinine [Mass/Vol] 0.93 mg/dL Normal 0.70-1.30 [facility] Comment on above: Performed By: #### C H8 #### [facility] [address] [place] [address], ESTIMATED GFR (CKD-EPI) 113 mL/min/1.73sqm Normal >=60 [facility] Comment on above: Result Comment: 2020 [...] Inclusion of Race in Diagnosing Kidney Disease. [place] Journal of Kidney Diseases 2021;79(2):268-88.e1. 2. N Engl J Med 2020 Vol. 385 Issue 19 Pages 8534-0475 Performed By: #### C H8 #### [facility] [address] [place] [address], Glucose [Mass/Vol] 115 mg/dL High 74-109 [facility] Comment on above: Performed By: #### C H8 #### [facility] [address] [place] [address], Potassium [Moles/Vol] 4.6 mmol/L Normal 3.5-5.0 [facility] Comment on above: Performed By: #### C H8 #### [facility] [address] [place] [address], Sodium [Moles/Vol] 139 mmol/L Normal 136-145 [facility] Comment on above: Performed By: #### C H8 #### [facility] [address] [place] [address], Urea nitrogen [Mass/Vol] 15 mg/dL Normal 7-25 [facility] Comment on above: Performed By: #### C H8 #### [facility] [address] [place] [address], Basic metabolic 2000 panelon 12-19-2023 Anion gap [Moles/Vol] 13 mmol/L 10 - 20 [facility] Calcium [Mass/Vol] 9.9 mg/dL 8.6 - 10. [...] the patient's full clinical presentation. Reference: 1. Pérez C, Yajaira M, Trey DC, et al.. A Unifying Approach for GFR Estimation: Recommendations of the NKF-ASN Task Force on Reassessing the Inclusion of Race in Diagnosing Kidney Disease. [place] Journal of Kidney Diseases 202;79(2):268-88.e1. 2. N Engl J Med 2020 Vol. 385 Issue 19 Pages 1335-8870 Glucose [Mass/Vol] 115 mg/dL High 74 - 109 mg/dL [facility] Interpretation and review of laboratory results Abnormal [facility] Potassium [Moles/Vol] 4.6 mmol/L 3.5 - 5.0 mmol/L [facility] Sodium [Moles/Vol] 139 mmol/L 136 - 145 mmol/L [facility] Urea nitrogen [Mass/Vol] 15 mg/dL 7 - 25 mg/dL [facility] PAT Appt H AND Ross Shotweld Operator Authentication Interface Message Text Patient was identified by name and date of . Jsawinder Arredondo Patient at risk for falls:No Falls Risk protocol implemented: N/A Normal [facility] Patient Instructionson 12-18 Shotweld Operator Authentication Interface Message Text [facility] staff: Since patient is unable to take [...] for pain. Please hold all Vitamin E, Dickson 3, fish oil and herbal supplements for 1 week prior to surgery. Please use this LIST to prepare for your surgery/procedure: ? Assume that any lab or testing done during your Pre-admission testing appointment is within normal limits unless otherwise contacted. ? Expect a call from [facility] one business day prior to surgery for [...] your Preparing for Your Surgery/Procedure booklet or [email or web address] if you have questions. Contact the Pre-Admission Testing department at [phone] or your surgeon's office with any questions [...] stay with you after surgery. Please call [facility] if you need transportation assistance or have concerns about going home [phone]. ? SLEEP APNEA PATIENTS: Bring your sleep apnea machine and mask. ? PLEASE BE ON TIME. A late arrival may result in the cancellation/ delay of your surgery. 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] Obesity, Class I, BMI 30-34.9 [E66.9] 11/02/2023 S/P laparoscopy [Z98.890] 11/05/2023 Acute postoperative pain [G89.18] 11/05/2023 Oropharyngeal dysphagia [R13.12] 11/06/2023 Epilepsy ([facility]) [G40.909] 11/06/2023 Level of Service: OFFICE/OUTPATIENT EST PT MAY NOT REQ PHYS/QHP [71745] LOS History for Encounter Encounter Status:Closed by OSCAR RUIZ on 12/03/23 [facility] CNOVon 11-28-2023 CNOV Office Visit (GENRHYSN ) JOHNNY DEVINE ([id number]) 1990 M Date Time Provider Department 11/28/23 [...] Victoria Sanchez APRN.CNP 11/28/2023 10:19 AM Signed [facility] Clinic Date: November 28, 2023 Johnny Devine 33 year old male CHIEF COMPLAINT: Patient presents for follow up from surgery. HPI: Here for follow up after diagnostic laparotomy on 10/29/[address] Robin. Patient also underwent a dorsal slit procedure with urology on 10/30/2023 for paraphimosis. Patient with a back gray cloth washer today to discuss his postoperative course since [...] ICD10: Z48.89 (more content not included)... 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] Prescriptions as of 11/12/2023 - cloNIDine HCl [...] 11/12/2023 Noted Resolved SBO (small bowel obstruction) ([facility]) [K56.609] 10/28/2023 10/31/2023 Bipolar disorder ([facility]) [F31.9] 09/16/2018 Hypothyroidism [E03.9] 09/16/2018 Obsessive-compulsive disorder [F42.9] 09/16/2018 Moderate intellectual disability [F71] 09/16/2018 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] Obesity, Class I, BMI 30-34.9 [E66.9] 11/02/2023 S/P laparoscopy [Z98.890] 11/05/2023 Acute postoperative pain [G89.18] 11/05/2023 Oropharyngeal dysphagia [R13.12] 11/06/2023 Epilepsy ([facility]) [G40.909] 11/06/2023 Encounter Status:Closed by CRIS DINH on 11/12/23 Normal [facility] Basic metabolic 2000 panelon 11-07-2023 Anion gap [Moles/Vol] 10 mmol/L Normal 9-18 [facility] Comment on above: Order Comment: Speci men Type: BLOOD SPECIMEN Ordering Facility: [facility] Address: [address] [place] [address] Performed By: #### 2 4321-2, , 2776-08 #### [facility] CLIA [id number] [address] [place] [address] [place] Calcium [Mass/Vol] 8.2 mg/dL Low 8.5-10.2 [facility] Comment on above: Order Comment: Speci men Type: BLOOD SPECIMEN Ordering Facility: [facility] Address: [address] [place] [address] Performed By: #### 2 4321-2, , 2776-08 #### [facility] CLIA [id number] [address] [place] [address] [place] Chloride [Moles/Vol] 110 mmol/L High 97-105 [facility] Comment on above: Order Comment: Speci men Type: BLOOD SPECIMEN Ordering Facility: [facility] Address: [address] [place] [address] Performed By: #### 2 4321-2, , 2776-08 #### [facility] CLIA [id number] [address] [place] [address] [place] CO2 [Moles/Vol] 21 mmol/L Low 22-30 [facility] Comment on above: Order Comment: Speci men Type: BLOOD SPECIMEN Ordering Facility: [facility] Address: [address] [place] [address] Performed By: #### 2 4321-2, , 2776-08 #### [facility] CLIA [id number] [address] [place] [address] [place] Creatinine [Mass/Vol] 0.70 mg/dL Low 0.73-1.22 [facility] Comment on above: Order Comment: Speci men Type: BLOOD SPECIMEN Ordering Facility: [facility] Address: [address] [place] [address] Performed By: #### 2 4321-2, , 2776-08 #### [facility] CLIA [id number] [address] [place] [address] [place] Creatinine and Glomerular filtration rate.predicted panel (S/P/Bld) 126 mL/min/1.73m??? Normal >=60 [facility] Comment on above: Order Comment: Speci men Type: BLOOD SPECIMEN Ordering Facility: [facility] Address: [address] [place] [address] Result Comment: Lor mated Glomerular Filtration Rate [...] By: #### 2 4321-2, , 2776-08 #### [facility] CLIA [id number] [address] [place] [address] [place] Glucose [Mass/Vol] 91 mg/dL Normal 74-99 [facility] Comment on above: Order Comment: Speci men Type: BLOOD SPECIMEN Ordering Facility: [facility] Address: [address] [place] [address] Result Comment: The [place] Diabetes Association (ADA) provides guidance for cutoff [...] Standards of Medical Care in Diabetes 2016, [place] [employer]. Diabetes Care. 2016.39(Suppl 1). Performed By: #### 2 4321-2, , 2776-08 #### [facility] CLIA [id number] [address] [place] [address] [place] Potassium [Moles/Vol] 4.4 mmol/L Normal 3.7-5.1 [facility] Comment on above: Order Comment: Speci men Type: BLOOD SPECIMEN Ordering Facility: [facility] Address: [address] [place] [address] Performed By: #### 2 4321-2, , 2776-08 #### [facility] CLIA [id number] [address] [place] [address] [place] Sodium [Moles/Vol] 141 mmol/L Normal 136-144 [facility] Comment on above: Order Comment: Speci men Type: BLOOD SPECIMEN Ordering Facility: [facility] Address: [address] [place] [address] Performed By: #### 2 4321-2, 45778-1, 2777-1 #### [facility] CLIA [id number] [address] [place] [address] [place] Urea nitrogen [Mass/Vol] 8 mg/dL Low 9-24 [facility] Comment on above: Order Comment: Speci men Type: BLOOD SPECIMEN Ordering Facility: [facility] Address: [address] [place] [address] Performed By: #### 2 4321-2, 11894-9, 2776- #### [facility] CLIA [id number] [address] [place] [address] [place] CBC panel Auto (Bld)on 11-06 Erythrocyte distribution width (RBC) [Ratio] 15.1 % High 11.5-15.0 [facility] Comment on above: Order Comment: Speci men Type: BLOOD SPECIMENOrdering Facility: [facility] Address: [address] [place] [address] Performed By: #### 5 8410-2 ####[facility] [id number] [place] [address] [place] Hematocrit (Bld) [Volume fraction] 31.4 % Low 39.0-51.0 [facility] Comment on above: Order Comment: Speci men Type: BLOOD SPECIMENOrdering Facility: [facility] Address: [address] [place] [address] Performed By: #### 5 8410-2 ####[facility] [id number] [place] [id number] [place] Hemoglobin (Bld) [Mass/Vol] 9.9 g/dL Low 13.0-17.0 [facility] Comment on above: Order Comment: Speci men Type: BLOOD SPECIMENOrdering Facility: [facility] Address: [address] [place] [address] Performed By: #### 5 8410-2 ####[facility] [id number] [place] [address] [place] MCH (RBC) [Entitic mass] 27.3 pg Normal 26.0-34.0 [facility] Comment on above: Order Comment: Speci men Type: BLOOD SPECIMENOrdering Facility: [facility] Address: [address] [place] [address] Performed By: #### 5 8410-2 ####[facility] [id number] [place] [address] [place] MCHC (RBC) [Mass/Vol] 31.5 g/dL Normal 30.5-36.0 [facility] Comment on above: Order Comment: Speci men Type: BLOOD SPECIMENOrdering Facility: [facility] Address: [address] [place] [address] Performed By: #### 5 8410-2 ####[facility] [id number] [place] [address] [place] MCV (RBC) [Entitic vol] 86.5 fL Normal 80.0-100.0 [facility] Comment on above: Order Comment: Speci men Type: BLOOD SPECIMENOrdering Facility: [facility] Address: [address] [place] [address] Performed By: #### 5 8410-2 ####[facility] [id number] [place] [address] [place] Nucleated RBC (Bld) [#/Vol] 10*3/uL Normal <0.01 [facility] Comment on above: Order Comment: Speci men Type: BLOOD SPECIMENOrdering Facility: [facility] Address: [address] [place] [address] Performed By: #### 5 8410-2 ####[facility] [id number] [place] [address] [place] Platelet mean volume (Bld) [Entitic vol] 9.4 fL Normal 9.0-12.7 [facility] Comment on above: Order Comment: Speci men Type: BLOOD SPECIMENOrdering Facility: [facility] Address: [address] [place] [address] Performed By: #### 5 8410-2 ####[facility] [id number] [place] [address] [place] Platelets (Bld) [#/Vol] 215 10*3/uL Normal 150-400 [facility] Comment on above: Order Comment: Speci men Type: BLOOD SPECIMENOrdering Facility: [facility] Address: [address] [place] [address] Performed By: #### 5 8410-2 ####[facility] [id number] [place] [address] [place] RBC (Bld) [#/Vol] 3.63 10*6/uL Low 4.20-6.00 [facility] Comment on above: Order Comment: Speci men Type: BLOOD SPECIMENOrdering Facility: [facility] Address: [address] [place] [address] Performed By: #### 5 8410-2 ####[facility] [id number] [place] [address] [place] WBC (Bld) [#/Vol] 8.67 10*3/uL Normal 3.70-11.00 [facility] Comment on above: Order Comment: Speci men Type: BLOOD SPECIMENOrdering Facility: [facility] Address: [address] [place] [address] Performed By: #### 5 8410-2 ####[facility] [id number] [place] [address] [place] CNCOon 11-07-2023 CNCO Letter Text Normal [facility] CNDSon 11-07-2023 CNDS HNO ID: [id number] Author: SAMUEL ROBIN MD Service: General Surgery Author Type: Resident Type: Discharge Summary Filed: 11/07/2023 11:20 Note Text: Attestation signed by Samuel Roibn MD at 11/07/2023 11:20 AM Attending Note [...] PSH who presents as a transfer to [facility] from [facility] ED for further management of small bowel obstruction. Given patient's baseline cognitive status, NGT difficult to maintain. He was admitted to the [facility] under care of general surgery and was taken to the OR the following morning for diagnostic laparoscopy. Intra-operative findings demonstrated no adhesins, no apparent hernias, dilated small/large bowel, redundant sigmoid c/f volvulus, easily reduced. After recovering in the PACU, he was taken to the [facility] with NGT in place. Patient arrived to [facility] with 8 Fr pediatric haskins catheter [...] in home regimen. Stable for discharge to [facility]. Neurology Recommendations on Discharge: - Discharge on anti-epileptic medications as prescribed - Please schedule outpatient follow-up with epilepsy - Please order outpatient MRI without contrast (3T epilepsy protocol) to be done prior to epilepsy appointment Active Hospital Problems Diagnosis Date Noted Oropharyngeal dysphagia 11/06/2023 Epilepsy (HCC) 11/06/2023 S/P laparoscopy 11/05/2023 Acute postoperative pain 11/05/2023 Obesity, Class I, BMI 30-34.9 11/02/2023 Developmental non-verbal disorder Obsessive-compulsive disorder 09/16/2018 Moderate intellectual disability 09/16/2018 Hypothyroidism 09/16/2018 Bipolar disorder ([facility]) 09/16/2018 Resolved Hospital Problems Diagnosis Date Noted Date Resolved SBO (small bowel obstruction) ([facility]) 10/28/2023 10/31/2023 Transitions of Care Critical Issues: Follow up with Dr. Fairbanks MRI as outpatient and follow up with Neurology in 2 weeks LABS AND PROCEDURES PENDING AT DISCHARGE: No pending results. CONSULTING TEAMS DURING HOSPIT (more content not included)... Normal [facility] CONSULT PROGon 11-07-2023 CONSULT PROG HNO ID: [id number] Author: BRUCE RESENDIZ MD Service: Neurology General [...] Phos Recent Labs 11/07/23 0418 11/06/23 0943 11/05/238 NA 141 146* 142 K 4.4 4.9 4.2 CHLOR 110* 112* 112* CO2 21* 18* 23 GLUC 91 83 96 CA 8.2* 8.9 7.6* MG 2.1 2.3 2.0 P 4.1 4.1 3.1 Liver Function, Amylase, AND Lipase BEM Readin11/05/2023 04:34:00 AM - 11/06/2023 04:32:00 AM This bedside EEG was recorded from 0434 on 11/05/23 until 043 on 11/06/23 and is suggestive of bilateral [...] November 06, 2023 TIME: 8:36 AM Normal [facility] Magnesium SerPl-mCncon 11-06 Magnesium [Mass/Vol] 2.1 mg/dL Normal 1.7-2.3 [facility] Comment on above: Order Comment: Speci men Type: BLOOD SPECIMEN Ordering Facility: [facility] Address: [address] [place] [address] Performed By: #### 2 4321-2, 26469-1, 2777-1 #### [facility] CLIA [id number] [address] [place] [address] [place] [address] [place] NURSING PROGon 11-07-2023 NURSING PROG HNO ID: [id number] Author: MAYANK READ, MIRIAM Service: Nursing Author Type: Registered Nurse Type: Nursing Progress Note Filed: 11/07/2023 14:53 Note Text: Pt is discharged to a [facility], securities vault supervisor Magi just arrived to peanut picker. Reviewed discharge paper works and handed it to the securities vault supervisor. IV removed, pt tolerated. EEG removed by organic extractions technician. Normal [facility] NUTRITIONon 11-07-2023 NUTRITION HNO ID: [id number] Author: RAFAELA COOL DTR Service: Nutrition Therapy Author Type: Pipe Bending Machine Operator Type: Nutrition Filed: 11/07/2023 13:38 Note Text: NUTRITION THERAPY CODING AND REIMBURSEMENT SPECIALIST NOTE SERVICE DATE: 11/07/2023 SERVICE TIME: [...] November 07, 2023 TIME: 1:38 PM Normal [facility] Phosphate SerPl-mCncon 11-06 Phosphate [Mass/Vol] 4.1 mg/dL Normal 2.7-4.8 [facility] Comment on above: Order Comment: Speci men Type: BLOOD SPECIMEN Ordering Facility: [facility] Address: [address] [place] [address] Performed By: #### 2 4321-2, , 2776-08 #### [facility] CLIA [id number] [address] [place] [address] [place] Basic metabolic 2000 panelon 11-06-2023 Anion gap [Moles/Vol] 16 mmol/L Normal 9-18 [facility] Comment on above: Order Comment: Speci men Type: BLOOD SPECIMEN Ordering Facility: [facility] Address: [address] [place] [address] Performed By: #### 2 4321-2, , 2776-08 #### [facility] CLIA [id number] [address] [place] [address] [place] Calcium [Mass/Vol] 8.9 mg/dL Normal 8.5-10.2 [facility] Comment on above: Order Comment: Speci men Type: BLOOD SPECIMEN Ordering Facility: [facility] Address: [address] [place] [address] Performed By: #### 2 4321-2, , 2776-08 #### [facility] CLIA [id number] [address] [place] [address] [place] Chloride [Moles/Vol] 112 mmol/L High 97-105 [facility] Comment on above: Order Comment: Speci men Type: BLOOD SPECIMEN Ordering Facility: [facility] Address: [address] [place] [address] Performed By: #### 2 4321-2, , 2776-08 #### [facility] CLIA [id number] [address] [place] [address] [place] CO2 [Moles/Vol] 18 mmol/L Low 22-30 [facility] Comment on above: Order Comment: Speci men Type: BLOOD SPECIMEN Ordering Facility: [facility] Address: [address] [place] [address] Performed By: #### 2 4321-2, , 2776-08 #### [facility] CLIA [id number] [address] [place] [address] [place] Creatinine [Mass/Vol] 0.69 mg/dL Low 0.73-1.22 [facility] Comment on above: Order Comment: Speci men Type: BLOOD SPECIMEN Ordering Facility: [facility] Address: [address] [place] [address] Performed By: #### 2 4321-2, , 2776-08 #### [facility] CLIA [id number] [address] [place] [address] [place] Creatinine and Glomerular filtration rate.predicted panel (S/P/Bld) 127 mL/min/1.73m??? Normal >=60 [facility] Comment on above: Order Comment: Speci men Type: BLOOD SPECIMEN Ordering Facility: [facility] Address: [address] [place] [address] Result Comment: Lor mated Glomerular Filtration Rate [...] By: #### 2 4321-2, , 2776-08 #### [facility] CLIA [id number] [address] [place] [address] [place] Glucose [Mass/Vol] 83 mg/dL Normal 74-99 [facility] Comment on above: Order Comment: Specdeshawn zuñiga Type: BLOOD SPECIMEN Ordering Facility: [facility] Address: [address] [place] [address] Result Comment: The [place] [employer] (ADA) provides guidance for cutoff [...] Standards of Medical Care in Diabetes 2016, [place] [employer]. Diabetes Care. 2016.39(Suppl 1). Performed By: #### 2 4321-2, , 2776-08 #### [facility] CLIA [id number] [address] [place] [address] [place] Potassium [Moles/Vol] 4.9 mmol/L Normal 3.7-5.1 [facility] Comment on above: Order Comment: Sana zuñiga Type: BLOOD SPECIMEN Ordering Facility: [facility] Address: [address] [place] [address] Performed By: #### 2 4321-2, , 2776-08 #### [facility] CLIA [id number] [address] [place] [address] [place] Sodium [Moles/Vol] 146 mmol/L High 136-144 [facility] Comment on above: Order Comment: Sana zuñiga Type: BLOOD SPECIMEN Ordering Facility: [facility] Address: [address] [place] [address] Performed By: #### 2 4321-2, 30345-0, 2776-08 #### [facility] CLIA [id number] [address] [place] [address] [place] Urea nitrogen [Mass/Vol] 6 mg/dL Low 9-24 [facility] Comment on above: Order Comment: Speci men Type: BLOOD SPECIMEN Ordering Facility: [facility] Address: [address] [place] [address] Performed By: #### 2 4321-2, 26795-8, 2776-08 #### [facility] CLIA [id number] [address] [place] [address] [place] CBC panel Auto (Bld)on 11-05 Erythrocyte distribution width (RBC) [Ratio] 14.8 % Normal 11.5-15.0 [facility] Comment on above: Order Comment: Speci men Type: BLOOD SPECIMEN Ordering Facility: [facility] Address: [address] [place] [address] Performed By: #### 2 777-1, 43207-1, #### [facility] CLIA [id number] [address] [place] [address] [place] Hematocrit (Bld) [Volume fraction] 31.3 % Low 39.0-51.0 [facility] Comment on above: Order Comment: Speci men Type: BLOOD SPECIMEN Ordering Facility: [facility] Address: [address] [place] [address] Performed By: #### 2 777-1, 59997-3, #### [facility] CLIA [id number] [address] [place] [address] [place] Hemoglobin (Bld) [Mass/Vol] 9.8 g/dL Low 13.0-17.0 [facility] Comment on above: Order Comment: Speci men Type: BLOOD SPECIMEN Ordering Facility: [facility] Address: [address] [place] [address] Performed By: #### 2 777-1, 45784-5, 32743-2 #### [facility] CLIA [id number] [address] [place] [address] [place] MCH (RBC) [Entitic mass] 26.4 pg Normal 26.0-34.0 [facility] Comment on above: Order Comment: Speci men Type: BLOOD SPECIMEN Ordering Facility: [facility] Address: [address] [place] [address] Performed By: #### 2 777-1, 57288-3, #### [facility] CLIA [id number] [address] [place] [address] [place] MCHC (RBC) [Mass/Vol] 31.3 g/dL Normal 30.5-36.0 [facility] Comment on above: Order Comment: Speci men Type: BLOOD SPECIMEN Ordering Facility: [facility] Address: [address] [place] [address] Performed By: #### 2 777-1, 56824-8, #### [facility] CLIA [id number] [address] [place] [address] [place] MCV (RBC) [Entitic vol] 84.4 fL Normal 80.0-100.0 [facility] Comment on above: Order Comment: Speci men Type: BLOOD SPECIMEN Ordering Facility: [facility] Address: [address] [place] [address] Performed By: #### 2 777-1, 31148-1, #### [facility] CLIA [id number] [address] [place] [address] [place] Nucleated RBC (Bld) [#/Vol] 10*3/uL Normal <0.01 [facility] Comment on above: Order Comment: Speci men Type: BLOOD SPECIMEN Ordering Facility: [facility] Address: [address] [place] [address] Performed By: #### 2 777-1, 74934-9, 74979-9 #### [facility] CLIA [id number] [address] [place] [address] [place] Platelet mean volume (Bld) [Entitic vol] 8.9 fL Low 9.0-12.7 [facility] Comment on above: Order Comment: Speci men Type: BLOOD SPECIMEN Ordering Facility: [facility] Address: [address] [place] [address] Performed By: #### 2 777-1, 16827-3, 47254-7 #### [facility] CLIA [id number] [address] [place] [address] [place] Platelets (Bld) [#/Vol] 244 10*3/uL Normal 150-400 [facility] Comment on above: Order Comment: Speci men Type: BLOOD SPECIMEN Ordering Facility: [facility] Address: [address] [place] [address] Performed By: #### 2 777-1, 23398-8, 49977-4 #### [facility] CLIA [id number] [address] [place] [address] [place] RBC (Bld) [#/Vol] 3.71 10*6/uL Low 4.20-6.00 [facility] Comment on above: Order Comment: Speci men Type: BLOOD SPECIMEN Ordering Facility: [facility] Address: [address] [place] [address] Performed By: #### 2 777-1, 73774-3, 87689-8 #### [facility] CLIA [id number] [address] [place] [address] [place] WBC (Bld) [#/Vol] 7.59 10*3/uL Normal 3.70-11.00 [facility] Comment on above: Order Comment: Speci men Type: BLOOD SPECIMEN Ordering Facility: [facility] Address: [address] [place] [address] Performed By: #### 2 777-1, 29001-2, 07118-0 #### [facility] CLIA [id number] [address] [place] [address] [place] [address] [place] CONSULT PROGon 11-06-2023 CONSULT PROG HNO ID: [id number] Author: KIM BHAKTA MD Service: Neurology General [...] for now. Kim Bhakta MD Staff Neurologist [facility] Normal [facility] SerPl-mCncon 11-05 Magnesium [Mass/Vol] 2.3 mg/dL Normal 1.7-2.3 [facility] Comment on above: Order Comment: Speci men Type: BLOOD SPECIMEN Order[facility] Facility[facility] Address: [address] [place] [address] Performed By: #### 2 4321-2, 45105-0, 2777-1 #### [facility] CLIA [id number] [address] [place] [address] [place] Phosphate SerPl-mCncon 11-05 Phosphate [Mass/Vol] 4.1 mg/dL Normal 2.7-4.8 [facility] Comment on above: Order Comment: Speci men Type: BLOOD SPECIMEN Ordering Facility: [facility] Address: [address] [place] [address] Performed By: #### 2 4321-2, 69744-7, 2777-1 #### [facility] CLIA [id number] [address] [place] [address] [place] THERAPY NTon 11-06-2023 THERAPY NT HNO ID: [id number] Author: CHANTELL BELLA [facility] Service: Speech/Swallow Author Type: Speech Language Pathologist Type: Therapy (PT/OT/Speech/Resp) Filed: 11/06/2023 10:28 Note Text: [facility] Speech Pathology - [facility] Bedside Swallow Evaluation SERVICE DATE: 11/06/2023 ROOM: H071 019/H071-19 IMPRESSIONS: Limited bedside swallowing evaluation as patient [...] assessment. PLAN: Page with concerns/questions. Chantell Bella [facility] Pager # [phone] BRIEF DIAGNOSIS AND HISTORY per General Surgery [...] discussed with: MIRIAM adkins SIGNATURE: Chantell Bella [facility] PATIENT NAME: Johnny Devine DATE: November 06, 2023 TIME: 10:12 AM PAGER: [phone] Normal [facility] Basic metabolic 2000 panelon 11-05-2023 Anion gap [Moles/Vol] 7 mmol/L Low 9-18 [facility] Comment on above: Order Comment: Speci men Type: BLOOD SPECIMEN Ordering Facility: [facility] Address: [address] [place] [address] Performed By: #### 5 7021-8 #### [facility] CLIA [id number] [address] [place] [address] [place] Calcium [Mass/Vol] 7.6 mg/dL Low 8.5-10.2 [facility] Comment on above: Order Comment: Speci men Type: BLOOD SPECIMEN Ordering Facility: [facility] Address: [address] [place] [address] Performed By: #### 5 7021-8 #### [facility] CLIA [id number] [address] [place] [address] [place] Chloride [Moles/Vol] 112 mmol/L High 97-105 [facility] Comment on above: Order Comment: Speci men Type: BLOOD SPECIMEN Ordering Facility: [facility] Address: [address] [place] [address] Performed By: #### 5 7021-8 #### [facility] CLIA [id number] [address] [place] [address] [place] CO2 [Moles/Vol] 23 mmol/L Normal 22-30 [facility] Comment on above: Order Comment: Speci men Type: BLOOD SPECIMEN Ordering Facility: [facility] Address: [address] [place] [address] Performed By: #### 5 7021-8 #### [facility] CLIA [id number] [address] [place] [address] [place] Creatinine [Mass/Vol] 0.64 mg/dL Low 0.73-1.22 [facility] Comment on above: Order Comment: Speci men Type: BLOOD SPECIMEN Ordering Facility: [facility] Address: [address] [place] [address] Performed By: #### 5 7021-8 #### [facility] IA [id number] [address] [place] [address] [place] Creatinine and Glomerular filtration rate.predicted panel (S/P/Bld) 130 mL/min/1.73m??? Normal >=60 [facility] Comment on above: Order Comment: Speci men Type: BLOOD SPECIMEN Ordering Facility: [facility] Address: [address] [place] [address] Result Comment: Lor mated Glomerular Filtration Rate [...] GFR. Performed By: #### 5 7021-8 #### [facility] CLIA [id number] [address] [place] [address] [place] Glucose [Mass/Vol] 96 mg/dL Normal 74-99 [facility] Comment on above: Order Comment: Speci men Type: BLOOD SPECIMEN Ordering Facility: [facility] Address: [address] [place] [id number] Result Comment: The [place] [employer] (ADA) provides guidance for cutoff [...] Standards of Medical Care in Diabetes 2016, [place] [employer]. Diabetes Care. 2016.39(Suppl 1). Performed By: #### 5 7021-8 #### [facility] CLIA [id number] [address] [place] [address] [place] Potassium [Moles/Vol] 4.2 mmol/L Normal 3.7-5.1 [facility] Comment on above: Order Comment: Speci men Type: BLOOD SPECIMEN Ordering Facility: [facility] Address: [address] [place] [address] Performed By: #### 5 7021-8 #### [facility] CLIA [id number] [address] [place] [address] [place] Sodium [Moles/Vol] 142 mmol/L Normal 136-144 [facility] Comment on above: Order Comment: Speci men Type: BLOOD SPECIMEN Ordering Facility: [facility] Address: [address] [place] [address] Performed By: #### 5 7021-8 #### [facility] CLIA [id number] [address] [place] [address] [place] Urea nitrogen [Mass/Vol] 5 mg/dL Low 9-24 [facility] Comment on above: Order Comment: Speci men Type: BLOOD SPECIMEN Ordering Facility: [facility] Address: [address] [place] [address] Performed By: #### 5 7021-8 #### [facility] CLIA [id number] [address] [place] [address] [place] CBC panel Auto (Bld)on 11-04 Erythrocyte distribution width (RBC) [Ratio] 14.6 % Normal 11.5-15.0 [facility] Comment on above: Order Comment: Speci men Type: BLOOD SPECIMENOrdering Facility: [facility] Address: [address] [place] [address] Performed By: #### 5 8410-2 ####[facility] [id number] [place] [address] [place] Hematocrit (Bld) [Volume fraction] 30.8 % Low 39.0-51.0 [facility] Comment on above: Order Comment: Speci men Type: BLOOD SPECIMENOrdering Facility: [facility] Address: [address] [place] [address] Performed By: #### 5 8410-2 ####[facility] [id number] [place] [address] [place] Hemoglobin (Bld) [Mass/Vol] 9.7 g/dL Low 13.0-17.0 [facility] Comment on above: Order Comment: Speci men Type: BLOOD SPECIMENOrdering Facility: [facility] Address: [address] [place] [address] Performed By: #### 5 8410-2 ####[facility] [id number] [place] [address] [place] MCH (RBC) [Entitic mass] 26.5 pg Normal 26.0-34.0 [facility] Comment on above: Order Comment: Speci men Type: BLOOD SPECIMENOrdering Facility: [facility] Address: [address] [place] [address] Performed By: #### 5 8410-2 ####[facility] [id number] [place] [address] [place] MCHC (RBC) [Mass/Vol] 31.5 g/dL Normal 30.5-36.0 [facility] Comment on above: Order Comment: Speci men Type: BLOOD SPECIMENOrdering Facility: [facility] Address: [address] [place] [address] Performed By: #### 5 8410-2 ####[facility] [id number] [place] [address] [place] MCV (RBC) [Entitic vol] 84.2 fL Normal 80.0-100.0 [facility] Comment on above: Order Comment: Speci men Type: BLOOD SPECIMENOrdering Facility: [facility] Address: [address] [place] [address] Performed By: #### 5 8410-2 ####[facility] [id number] [place] [address] [place] Nucleated RBC (Bld) [#/Vol] 10*3/uL Normal <0.01 [facility] Comment on above: Order Comment: Speci men Type: BLOOD SPECIMENOrdering Facility: [facility] Address: [address] [place] [address] Performed By: #### 5 8410-2 ####[facility] [id number] [place] [address] [place] Platelet mean volume (Bld) [Entitic vol] 9.1 fL Normal 9.0-12.7 [facility] Comment on above: Order Comment: Speci men Type: BLOOD SPECIMENOrdering Facility: [facility] Address: [address] [place] [address] Performed By: #### 5 8410-2 ####[facility] [id number] [place] [address] [place] Platelets (Bld) [#/Vol] 205 10*3/uL Normal 150-400 [facility] Comment on above: Order Comment: Speci men Type: BLOOD SPECIMENOrdering Facility: [facility] Address: [address] [place] [address] Performed By: #### 5 8410-2 ####[facility] [id number] [place] [address] [place] RBC (Bld) [#/Vol] 3.66 10*6/uL Low 4.20-6.00 [facility] Comment on above: Order Comment: Speci men Type: BLOOD SPECIMENOrdering Facility: [facility] Address: [address] [place] [address] Performed By: #### 5 8410-2 ####[facility] [id number] [place] [address] [place] WBC (Bld) [#/Vol] 7.54 10*3/uL Normal 3.70-11.00 [facility] Comment on above: Order Comment: Speci men Type: BLOOD SPECIMENOrdering Facility: [facility] Address: [address] [place] [address] Performed By: #### 5 8410-2 ####[facility] [id number] [place] [address] [place] Magnesium SerPl-mCncon 11-04 Magnesium [Mass/Vol] 2.0 mg/dL Normal 1.7-2.3 [facility] Comment on above: Order Comment: Speci men Type: BLOOD SPECIMEN Ordering Facility: [facility] Address: [address] [place] [address] Performed By: #### 5 7021-8 #### [facility] CLIA [id number] [address] [place] [address] [place] Phosphate SerPl-mCncon 11-04 Phosphate [Mass/Vol] 3.1 mg/dL Normal 2.7-4.8 [facility] Comment on above: Order Comment: Speci men Type: BLOOD SPECIMEN Ordering Facility: [facility] Address: [address] [place] [address] Performed By: #### 5 7021-8 #### [facility] CLIA [id number] [address] [place] [address] [place] [address] [place] THERAPY NTon 11-05-2023 THERAPY NT HNO ID: [id number] Author: ANA LUISA MORALES, PT Service: ? Author Type: Physical Therapist Type: Therapy (PT/OT/Speech/Resp) Filed: 11/05/2023 15:46 Note Text: Physical Therapy Evaluation Summary SERVICE DATE: 11/05/2023 SERVICE TIME: 1459 to 1532 ROOM: [place] [address] PT 6 Clicks Score: 18 DISCHARGE RECOMMENDATIONS Home Recommended Discharge Disposition Comments: Anticipate patient will continue to progress in mobility. Anticipate return to [facility] as long as able to provide current [...] Patient Lives With: Other: See Comment Comments: [facility] ( intermediate care ) Assistance Available: 24-Hour PRIOR FUNCTIONAL LEVEL Required Assistance Assistance Required With: Cleaning, Laundry, Meals, Safety, Self Care, Shopping, Transportation Patient non-verbal at baseline. Aunt (cate) present during session to obtain PLOF. [facility]. I with mobility. Can feed himself and bathe, but requires cueing to do so. Will communicate with yes/no head nods. Aunt reports he has OCD, and sometimes needs time to do things at his own pace. Unsure of current interests, but tends to like to put things together, laundry, Oren. SUBJECTIVE Pt non-verbal throughout session THERAPY DIAGNOSIS Reduced mobility-other, Abnormalities of gait and mobility-other TREATMENT INTERVENTIONS Evaluation, Therapeutic Activity (37633) Timed Code Treatment (minutes): 18 Skilled Treatment [...] Type: Stepping Bed To Chair Transfer Equipment: (SCREW MACHINE HAND) frequent verbal cues Gait Contact Guard Assistance [...] November 05, 2023 TIME: 3:46 PM Normal [facility] Basic metabolic 2000 panelon 11-04-2023 Anion gap [Moles/Vol] 9 mmol/L Normal 9-18 [facility] Comment on above: Order Comment: Speci men Type: BLOOD SPECIMEN Ordering Facility: [facility] Address: [address] [place] [address] Performed By: #### 2 777-1, 32181-9, #### [facility] CLIA [id number] [address] [place] [address] [place] Calcium [Mass/Vol] 7.7 mg/dL Low 8.5-10.2 [facility] Comment on above: Order Comment: Speci men Type: BLOOD SPECIMEN Ordering Facility: [facility] Address: [address] [place] [address] Performed By: #### 2 777-1, 38293-8, #### [facility] CLIA [id number] [address] [place] [address] [place] Chloride [Moles/Vol] 112 mmol/L High 97-105 [facility] Comment on above: Order Comment: Speci men Type: BLOOD SPECIMEN Ordering Facility: [facility] Address: [address] [place] [address] Performed By: #### 2 777-1, , #### [facility] CLIA [id number] [address] [place] [address] [place] CO2 [Moles/Vol] 24 mmol/L Normal 22-30 [facility] Comment on above: Order Comment: Speci men Type: BLOOD SPECIMEN Ordering Facility: [facility] Address: [address] [place], [place] [address] Performed By: #### 2 777-1, 33050-7, #### [facility] CLIA [id number] [address] [place] [address] [place] Creatinine [Mass/Vol] 0.70 mg/dL Low 0.73-1.22 [facility] Comment on above: Order Comment: Sana zuñiga Type: BLOOD SPECIMEN Ordering Facility: [facility] Address: [address] [place] [address] Performed By: #### 2 777-1, 75198-1, #### [facility] CLIA [id number] [address] [place] [address] [place] Creatinine and Glomerular filtration rate.predicted panel (S/P/Bld) 126 mL/min/1.73m??? Normal >=60 [facility] Comment on above: Order Comment: Sana zuñiga Type: BLOOD SPECIMEN Ordering Facility: [facility] Address: [address] [place] [address] Result Comment: Lor mated Glomerular Filtration Rate [...] actual GFR. Performed By: #### 2 777-1, 71769-1, #### [facility] CLIA [id number] [address] [place] [address] [place] Glucose [Mass/Vol] 79 mg/dL Normal 74-99 [facility] Comment on above: Order Comment: Sana zuñiga Type: BLOOD SPECIMEN Ordering Facility: [facility] Address: [address] [place] [address] Result Comment: The [place] [employer] (ADA) provides guidance for cutoff [...] Standards of Medical Care in Diabetes 2016, [place] [employer]. Diabetes Care. 2016.39(Suppl 1). Performed By: #### 2 777-1, 70201-4, #### [facility] CLIA [id number] [address] [place] [address] [place] Potassium [Moles/Vol] 3.6 mmol/L Low 3.7-5.1 [facility] Comment on above: Order Comment: Speci men Type: BLOOD SPECIMEN Ordering Facility: [facility] Address: [address] [place] [address] Performed By: #### 2 777-1, 40911-4, #### [facility] CLIA [id number] [address] [place] [address] [place] Sodium [Moles/Vol] 145 mmol/L High 136-144 [facility] Comment on above: Order Comment: Speci men Type: BLOOD SPECIMEN Ordering Facility: [facility] Address: [address] [place] [address] Performed By: #### 2 777-1, 88503-9, #### [facility] CLIA [id number] [address] [place] [address] [place] Urea nitrogen [Mass/Vol] 4 mg/dL Low 9-24 [facility] Comment on above: Order Comment: Speci men Type: BLOOD SPECIMEN Ordering Facility: [facility] Address: [address] [place] [address] Performed By: #### 2 777-1, 97054-0, #### [facility] CLIA [id number] [address] [place] [address] [place] CBC panel Auto (Bld)on 11-03 Erythrocyte distribution width (RBC) [Ratio] 14.3 % Normal 11.5-15.0 [facility] Comment on above: Order Comment: Speci men Type: BLOOD SPECIMEN Ordering Facility: [facility] Address: [address] [place], [place] [address] Performed By: #### 2 777-1, 87871-3, #### [facility] CLIA [id number] [address] [place], [place] [address] [place] Hematocrit (Bld) [Volume fraction] 33.4 % Low 39.0-51.0 [facility] Comment on above: Order Comment: Speci men Type: BLOOD SPECIMEN Ordering Facility: [facility] Address: [address] [place] [address] Performed By: #### 2 777-1, 66848-7, #### [facility] CLIA [id number] [address] [place] [address] [place] Hemoglobin (Bld) [Mass/Vol] 10.5 g/dL Low 13.0-17.0 [facility] Comment on above: Order Comment: Speci men Type: BLOOD SPECIMEN Ordering Facility: [facility] Address: [address] [place] [address] Performed By: #### 2 777-1, 67857-9, #### [facility] CLIA [id number] [address] [place], [place] [address] [place] MCH (RBC) [Entitic mass] 26.4 pg Normal 26.0-34.0 [facility] Comment on above: Order Comment: Speci men Type: BLOOD SPECIMEN Ordering Facility: [facility] Address: [address] [place], [place] [address] Performed By: #### 2 777-1, 75912-7, #### [facility] CLIA [id number] [address] [place], [place] [address] [place] MCHC (RBC) [Mass/Vol] 31.4 g/dL Normal 30.5-36.0 [facility] Comment on above: Order Comment: Speci men Type: BLOOD SPECIMEN Ordering Facility: [facility] Address: [address] [place] [address] Performed By: #### 2 777-1, 28481-0, #### [facility] CLIA [id number] [address] [place] [address] [place] MCV (RBC) [Entitic vol] 84.1 fL Normal 80.0-100.0 [facility] Comment on above: Order Comment: Speci men Type: BLOOD SPECIMEN Ordering Facility: [facility] Address: [address] [place] [address] Performed By: #### 2 777-1, 27379-7, #### [facility] CLIA [id number] [address] [place] [address] [place] Nucleated RBC (Bld) [#/Vol] 10*3/uL Normal <0.01 [facility] Comment on above: Order Comment: Speci men Type: BLOOD SPECIMEN Ordering Facility: [facility] Address: [address] [place] [address] Performed By: #### 2 777-1, 36596-3, #### [facility] CLIA [id number] [address] [place] [address] [place] Platelet mean volume (Bld) [Entitic vol] 8.9 fL Low 9.0-12.7 [facility] Comment on above: Order Comment: Speci men Type: BLOOD SPECIMEN Ordering Facility: [facility] Address: [address] [place] [address] Performed By: #### 2 777-1, 41093-0, #### [facility] CLIA [id number] [address] [place] [address] [place] Platelets (Bld) [#/Vol] 242 10*3/uL Normal 150-400 [facility] Comment on above: Order Comment: Speci men Type: BLOOD SPECIMEN Ordering Facility: [facility] Address: [address] [place] [address] Performed By: #### 2 777-1, 46423-8, #### [facility] CLIA [id number] [address] [place] [address] [place] RBC (Bld) [#/Vol] 3.97 10*6/uL Low 4.20-6.00 [facility] Comment on above: Order Comment: Speci men Type: BLOOD SPECIMEN Ordering Facility: [facility] Address: [address] [place] [address] Performed By: #### 2 777-1, 76697-0, #### [facility] CLIA [id number] [address] [place] [address] [place] WBC (Bld) [#/Vol] 9.36 10*3/uL Normal 3.70-11.00 [facility] Comment on above: Order Comment: Speci men Type: BLOOD SPECIMEN Ordering Facility: [facility] Address: [address] [place] [address] Performed By: #### 2 777-1, 56841-9, #### [facility] CLIA [id number] [address] [place] [address] [place] Magnesium SerPl-mCncon 11-03 Magnesium [Mass/Vol] 2.0 mg/dL Normal 1.7-2.3 [facility] Comment on above: Order Comment: Speci men Type: BLOOD SPECIMEN Ordering Facility: [facility] Address: [address] [place] [address] Performed By: #### 2 777-1, 86732-8, #### [facility] CLIA [id number] [address] [place] [address] [place] NUTRITIONon 11-04-2023 NUTRITION HNO ID: [id number] Author: SAURABH VAZQUEZ DTR Service: Nutrition Therapy Author Type: Pipe Bending Machine Operator Type: Nutrition Filed: 11/04/2023 14:35 Note Text: NUTRITION THERAPY CODING AND REIMBURSEMENT SPECIALIST NOTE SERVICE DATE: 11/04/2023 SERVICE TIME: 1030 Visit Type: Length of Stay Evaluation Goals Met: Not Met Will monitor for diet advancement and nutritional needs as able. Plan of Care: Follow-Up: [facility] Reassessment Nursing Admission Assessment Malnutrition Score: 0 [...] November 04, 2023 TIME: 2:25 PM Normal [facility] Phosphate SerPl-mCncon 11-03 Phosphate [Mass/Vol] 2.6 mg/dL Low 2.7-4.8 [facility] Comment on above: Order Comment: Sana zuñiga Type: BLOOD SPECIMEN Ordering Facility: [facility] Address: [address] [place] [address] Performed By: #### 2 777-1, 76100-3, 65942-7 #### [facility] CLIA [id number] [address] [place] [address] [place] Valproate Free SerPl-mCncon 11-04-2023 Valproate Free [Mass/Vol] 11.3 ug/mL Normal 4.0-30.0 [facility] Comment on above: Order Comment: Sana zuñiga Type: BLOOD SPECIMENOrdering Facility: [facility] Address: [address] [place] [address] Result Comment: Refe rence ranges and high/low indicator flags are provided as general guidelines only. The treating physician must determine appropriate target levels/dosing based on the specific clinical situation. This test was developed and its performance characteristics determined by [facility] [place] ([facility] It has not been cleared or approved by the FDA. -[facility] is regulated under CLIA as qualified to perform high-complexity testing. This test is used for clinical purposes. It should not be regarded as investigational or for research. Performed By: #### 4 087-3 ####[facility] [id number] [place] [address] [place] Valproate SerPl-ncon 11-03 Valproate [Mass/Vol] 49.2 ug/mL Low 50.0-100.0 [facility] Comment on above: Order Comment: Speci men Type: BLOOD SPECIMEN Ordering Facility: [facility] Address: [address] [place] [address] Result Comment: Refe rence ranges and high/low indicator flags are provided as general guidelines only. The treating physician must determine appropriate target levels/dosing based on the specific clinical situation. Performed By: #### 2 4321-2, 18851-5, 2777-1 #### [facility] CLIA [id number] [address] [place] [address] [place] Basic metabolic 2000 panelon 11-03-2023 Anion gap [Moles/Vol] 11 mmol/L Normal 9-18 [facility] Comment on above: Order Comment: Speci men Type: BLOOD SPECIMEN Ordering Facility: [facility] Address: [address] [place] [address] Performed By: #### 2 777-1, 08534-5, 88329-4 #### [facility] CLIA [id number] [address] [place] [address] [place] Calcium [Mass/Vol] 7.7 mg/dL Low 8.5-10.2 [facility] Comment on above: Order Comment: Speci men Type: BLOOD SPECIMEN Ordering Facility: [facility] Address: [address] [place] [address] Performed By: #### 2 777-1, 97466-6, #### [facility] CLIA [id number] [address] [place] [address] [place] Chloride [Moles/Vol] 112 mmol/L High 97-105 [facility] Comment on above: Order Comment: Speci men Type: BLOOD SPECIMEN Ordering Facility: [facility] Address: [address] [place] [address] Performed By: #### 2 777-1, 92451-7, #### [facility] CLIA [id number] [address] [place] [address] [place] CO2 [Moles/Vol] 22 mmol/L Normal 22-30 [facility] Comment on above: Order Comment: Speci men Type: BLOOD SPECIMEN Ordering Facility: [facility] Address: [address] [place] [address] Performed By: #### 2 777-1, , #### [facility] CLIA [id number] [address] [place] [address] [place] Creatinine [Mass/Vol] 0.68 mg/dL Low 0.73-1.22 [facility] Comment on above: Order Comment: Speci men Type: BLOOD SPECIMEN Ordering Facility: [facility] Address: [address] [place] [address] Performed By: #### 2 777-1, 72596-4, #### [facility] CLIA [id number] [address] [place] [address] [place] Creatinine and Glomerular filtration rate.predicted panel (S/P/Bld) 127 mL/min/1.73m??? Normal >=60 [facility] Comment on above: Order Comment: Sana zuñiga Type: BLOOD SPECIMEN Ordering Facility: [facility] Address: [address] [place] [address] Result Comment: Lor mated Glomerular Filtration Rate [...] actual GFR. Performed By: #### 2 777-1, 24500-9, #### [facility] CLIA [id number] [address] [place] [address] [place] Glucose [Mass/Vol] 85 mg/dL Normal 74-99 [facility] Comment on above: Order Comment: Sana zuñiga Type: BLOOD SPECIMEN Ordering Facility: [facility] Address: [address] [place] [address] Result Comment: The [place] [employer] (ADA) provides guidance for cutoff [...] Standards of Medical Care in Diabetes 2016, [place] [employer]. Diabetes Care. 2016.39(Suppl 1). Performed By: #### 2 777-1, 90463-3, #### [facility] CLIA [id number] [address] [place] [address] [place] Potassium [Moles/Vol] 3.4 mmol/L Low 3.7-5.1 [facility] Comment on above: Order Comment: Sana zuñiga Type: BLOOD SPECIMEN Ordering Facility: [facility] Address: [address] [place] [address] Performed By: #### 2 777-1, 11762-3, #### [facility] CLIA [id number] [address] [place] [address] [place] Sodium [Moles/Vol] 145 mmol/L High 136-144 [facility] Comment on above: Order Comment: Speci men Type: BLOOD SPECIMEN Ordering Facility: [facility] Address: [address] [place] [address] Performed By: #### 2 777-1, 81993-3, #### [facility] CLIA [id number] [address] [place] [address] [place] Urea nitrogen [Mass/Vol] 5 mg/dL Low 9-24 [facility] Comment on above: Order Comment: Speci men Type: BLOOD SPECIMEN Ordering Facility: [facility] Address: [address] [place] [address] Performed By: #### 2 777-1, 93318-4, #### [facility] CLIA [id number] [address] [place] [address] [place] CBC W Auto Differential pane l (Bld)on 11-03-2023 Basophils (Bld) [#/Vol] 10*3/uL Normal <0.11 [facility] Comment on above: Order Comment: Speci men Type: BLOOD SPECIMEN Ordering Facility: [facility] Address: [address] [place] [address] Performed By: #### 5 7021-8 #### [facility] CLIA [id number] [address] [place] [address] [place] Basophils/100 WBC (Bld) 0.3 % Normal [facility] Comment on above: Order Comment: Speci men Type: BLOOD SPECIMEN Ordering Facility: [facility] Address: [address] [place] [address] Performed By: #### 5 7021-8 #### [facility] CLIA [id number] [address] [place] [address] [place] Differential cell count method Nom (Bld) Auto Normal [facility] Comment on above: Order Comment: Speci men Type: BLOOD SPECIMEN Ordering Facility: [facility] Address: [address] [place] [address] Performed By: #### 5 7021-8 #### [facility] CLIA [id number] [address] [place] [address] [place] Eosinophils (Bld) [#/Vol] 0.25 10*3/uL Normal <0.46 [facility] Comment on above: Order Comment: Speci men Type: BLOOD SPECIMEN Ordering Facility: [facility] Address: [address] [place] [address] Performed By: #### 5 7021-8 #### [facility] CLIA [id number] [address] [place] [address] [place] Eosinophils/100 WBC (Bld) 3.1 % Normal [facility] Comment on above: Order Comment: Speci men Type: BLOOD SPECIMEN Ordering Facility: [facility] Address: [address] [place] [address] Performed By: #### 5 7021-8 #### [facility] CLIA [id number] [address] [place] [address] [place] Erythrocyte distribution width (RBC) [Ratio] 13.7 % Normal 11.5-15.0 [facility] Comment on above: Order Comment: Speci men Type: BLOOD SPECIMEN Ordering Facility: [facility] Address: [address] [place] [address] Performed By: #### 5 7021-8 #### [facility] CLIA [id number] [address] [place] [address] [place] Hematocrit (Bld) [Volume fraction] 29.9 % Low 39.0-51.0 [facility] Comment on above: Order Comment: Speci men Type: BLOOD SPECIMEN Ordering Facility: [facility] Address: [address] [place] [address] Performed By: #### 5 7021-8 #### [facility] CLIA [id number] [address] [place] [address] [place] Hemoglobin (Bld) [Mass/Vol] 9.4 g/dL Low 13.0-17.0 [facility] Comment on above: Order Comment: Speci men Type: BLOOD SPECIMEN Ordering Facility: [facility] Address: [address] [place] [address] Performed By: #### 5 7021-8 #### [facility] CLIA [id number] [address] [place] [address] [place] Immature granulocytes (Bld) [#/Vol] 0.11 10*3/uL High <0.10 [facility] Comment on above: Order Comment: Speci men Type: BLOOD SPECIMEN Ordering Facility: [facility] Address: [address] [place] [address] Performed By: #### 5 7021-8 #### [facility] CLIA [id number] [address] [place] [address] [place] Immature granulocytes/100 WBC (Bld) 1.4 % Normal [facility] Comment on above: Order Comment: Speci men Type: BLOOD SPECIMEN Ordering Facility: [facility] Address: [address] [place] [address] Performed By: #### 5 7021-8 #### [facility] CLIA [id number] [address] [place] [address] [place] Lymphocytes (Bld) [#/Vol] 2.03 10*3/uL Normal 1.00-4.00 [facility] Comment on above: Order Comment: Speci men Type: BLOOD SPECIMEN Ordering Facility: [facility] Address: [address] [place] [address] Performed By: #### 5 7021-8 #### [facility] CLIA [id number] [address] [place] [address] [place] Lymphocytes/100 WBC (Bld) 25.4 % Normal [facility] Comment on above: Order Comment: Speci men Type: BLOOD SPECIMEN Ordering Facility: [facility] Address: [address] [place] [address] Performed By: #### 5 7021-8 #### [facility] CLIA [id number] [address] [place] [address] [place] MCH (RBC) [Entitic mass] 26.5 pg Normal 26.0-34.0 [facility] Comment on above: Order Comment: Speci men Type: BLOOD SPECIMEN Ordering Facility: [facility] Address: [address] [place] [address] Performed By: #### 5 7021-8 #### [facility] CLIA [id number] [address] [place] [address] [place] MCHC (RBC) [Mass/Vol] 31.4 g/dL Normal 30.5-36.0 [facility] Comment on above: Order Comment: Speci men Type: BLOOD SPECIMEN Ordering Facility: [facility] Address: [address] [place] [address] Performed By: #### 5 7021-8 #### [facility] CLIA [id number] [address] [place] [address] [place] MCV (RBC) [Entitic vol] 84.2 fL Normal 80.0-100.0 [facility] Comment on above: Order Comment: Speci men Type: BLOOD SPECIMEN Ordering Facility: [facility] Address: [address] [place] [address] Performed By: #### 5 7021-8 #### [facility] CLIA [id number] [address] [id number] [address] [place] Monocytes (Bld) [#/Vol] 0.62 10*3/uL Normal <0.87 [facility] Comment on above: Order Comment: Speci men Type: BLOOD SPECIMEN Ordering Facility: [facility] Address: [address] [place] [address] Performed By: #### 5 7021-8 #### [facility] CLIA [id number] [address] [place] [address] [place] Monocytes/100 WBC (Bld) 7.8 % Normal [facility] Comment on above: Order Comment: Speci men Type: BLOOD SPECIMEN Ordering Facility: [facility] Address: [address] [place] [address] Performed By: #### 5 7021-8 #### [facility] CLIA [id number] [address] [place] [address] [place] Neutrophils (Bld) [#/Vol] 4.96 10*3/uL Normal 1.45-7.50 [facility] Comment on above: Order Comment: Speci men Type: BLOOD SPECIMEN Ordering Facility: [facility] Address: [address] [place] [address] Performed By: #### 5 7021-8 #### [facility] CLIA [id number] [address] [place] [address] [place] Neutrophils/100 WBC (Bld) 62.0 % Normal [facility] Comment on above: Order Comment: Speci men Type: BLOOD SPECIMEN Ordering Facility: [facility] Address: [address] [place] [address] Performed By: #### 5 7021-8 #### [facility] CLIA [id number] [address] [place] [address] [place] Nucleated RBC (Bld) [#/Vol] 10*3/uL Normal <0.01 [facility] Comment on above: Order Comment: Speci men Type: BLOOD SPECIMEN Ordering Facility: [facility] Address: [address] [place] [address] Performed By: #### 5 7021-8 #### [facility] CLIA [id number] [address] [place] [address] [place] Nucleated RBC/100 WBC (Bld) [Ratio] 0.0 /100 WBC Normal [facility] Comment on above: Order Comment: Speci men Type: BLOOD SPECIMEN Ordering Facility: [facility] Address: [address] [place] [address] Performed By: #### 5 7021-8 #### [facility] CLIA [id number] [address] [place] [address] [place] Platelet mean volume (Bld) [Entitic vol] 9.3 fL Normal 9.0-12.7 [facility] Comment on above: Order Comment: Speci men Type: BLOOD SPECIMEN Ordering Facility: [facility] Address: [address] [place] [address] Performed By: #### 5 7021-8 #### [facility] CLIA [id number] [address] [place] [address] [place] Platelets (Bld) [#/Vol] 208 10*3/uL Normal 150-400 [facility] Comment on above: Order Comment: Speci men Type: BLOOD SPECIMEN Ordering Facility: [facility] Address: [address] [place] [address] Performed By: #### 5 7021-8 #### [facility] CLIA [id number] [address] [place] [address] [place] RBC (Bld) [#/Vol] 3.55 10*6/uL Low 4.20-6.00 [facility] Comment on above: Order Comment: Speci men Type: BLOOD SPECIMEN Ordering Facility: [facility] Address: [address] [place] [address] Performed By: #### 5 7021-8 #### [facility] CLIA [id number] [address] [place] [address] [place] WBC (Bld) [#/Vol] 7.99 10*3/uL Normal 3.70-11.00 [facility] Comment on above: Order Comment: Sana zuñiga Type: BLOOD SPECIMEN Ordering Facility: [facility] Address: [address] [place] [address] Performed By: #### 5 7021-8 #### [facility] CLIA [id number] [address] [place] [address] [place] CONSULTon 11-03-2023 CONSULT HNO ID: [id number] Author: CK HU MD Service: Neurology General [...] appears to be 1 mg TID on cEEG for another 24 hours as his [...] is brother, Delbert. Patient lives in a usp at baseline. Per information written on board [...] (DULCOLAX) 10 mg RECTAL DAILY phenol 1 [place] (CHLORASEPTIC) 1 [place] MUCOUS MEMBRANE (TOPICAL MOUTH AND THROAT) q 2 H PRN Or benzocaine-menthol 1 [place] (CHLORASEPTIC) 1 [place]oz[place] MUCOUS MEMBRANE (TOPICAL MOUTH AND THROAT) q 2 H PRN clomiPRAMINE 75 mg cap(s) (ANAFRANIL) 75 mg ORAL AT BEDTIME lithium carbonate 300 mg cap(s) (ESKALITH) 300 mg ORAL BID sertraline (ZOLOFT (more content not included)... Normal [facility] CT BRAIN WO IVCONon 11-03-[address] BRAIN WO IVCON * * *Final Report* * * DATE OF EXAM: Nov 03 2023 7:42PM [facility] [place] BRAIN [place] IVCON / [...] reduction techniques were required COMPARISON: None. RESULT: [employer] Fab[employer] Machine Operator (topogram) images: No additional findings. Post-operative change: [...] No clear evidence of an acute abnormality. [employer] Consultant: SUSI Transcribe Date/Time: Nov 03 2023 7:43P Dictated by : HERMAN DOWD MD This examination was interpreted and the report reviewed and electronically signed by: HERMAN DOWD MD on Nov 03 2023 7:44PM EST [id number] Normal [facility] [place], Bld SerPl-sCncon [place] [Moles/Vol] 0.5 mmol/L Low 0.6-1.2 [facility] Comment on above: Order Comment: Speci men Type: BLOOD SPECIMEN Ordering Facility: [facility] Address: [address] [place] [address] Result Comment: Refe rence ranges and high/low indicator flags are provided as general guidelines only. The treating physician must determine appropriate target levels/dosing based on the specific clinical situation. Performed By: #### 1 4334-7, 4086-5 #### [facility] CLIA [id number] [address] [place] [address] [place] Magnesium SerPl-mCncon 11-02 Magnesium [Mass/Vol] 2.2 mg/dL Normal 1.7-2.3 [facility] Comment on above: Order Comment: Speci men Type: BLOOD SPECIMEN Ordering Facility: [facility] Address: [address] [place] [address] Performed By: #### 2 777-1, 96482-7, 63483-2 #### [facility] CLIA [id number] [address] [place] [address] [place] Phosphate SerPl-mCncon 11-02 Phosphate [Mass/Vol] 2.5 mg/dL Low 2.7-4.8 [facility] Comment on above: Order Comment: Speci men Type: BLOOD SPECIMEN Ordering Facility: [facility] Address: [address] [place] [address] Performed By: #### 2 777-1, 35974-8, #### [facility] CLIA [id number] [address] [place] [address] [place] THERAPY NTon 11-03-2023 THERAPY NT HNO ID: [id number] Author: ANKITA BLACKBURN PT, DPT Service: Physical Therapy Author Type: Physical Therapist Type: Therapy (PT/OT/Speech/Resp) Filed: 11/03/2023 13:48 Note Text: PHYSICAL THERAPY MISSED VISIT SERVICE DATE: 11/03/2023 SERVICE TIME: 1347 ROOM: [place] [address] Patient not seen due to Patient Not Available. Another service at bedside upon time of arrival x2 attempts. Will follow up as able/appropriate. SIGNATURE: Ankita Blackburn PT, DPT PATIENT NAME: Johnny Devine DATE: November 03, 2023 TIME: 1:48 PM Normal [facility] Valproate SerPl-mCncon 11-02 Valproate [Mass/Vol] 53.0 ug/mL Normal 50.0-100.0 [facility] Comment on above: Order Comment: Speci men Type: BLOOD SPECIMEN Ordering Facility: [facility] Address: [address] [place] [address] Result Comment: Refe rence ranges and high/low indicator flags are provided as general guidelines only. The treating physician must determine appropriate target levels/dosing based on the specific clinical situation. Performed By: #### 1 4334-7, 4086-5 #### [facility] CLIA [id number] [address] [place] [address] [place] [facility] Anion gap [Moles/Vol] 8 mmol/L Low 9-18 [facility] Comment on above: Order Comment: Speci men Type: BLOOD SPECIMEN Ordering Facility: [facility] Address: [address] [place] [address] Performed By: #### 2 777-1, 15588-5, #### [facility] CLIA [id number] [address] [place] [address] [place] Calcium [Mass/Vol] 7.7 mg/dL Low 8.5-10.2 [facility] Comment on above: Order Comment: Speci men Type: BLOOD SPECIMEN Ordering Facility: [facility] Address: [address] [place] [address] Performed By: #### 2 777-1, 45540-7, #### [facility] CLIA [id number] [address] [place] [address] [place] Chloride [Moles/Vol] 109 mmol/L High 97-105 [facility] Comment on above: Order Comment: Speci men Type: BLOOD SPECIMEN Ordering Facility: [facility] Address: [address] [place] [address] Performed By: #### 2 777-1, 56865-1, #### [facility] CLIA [id number] [address] [place], [place] [address] [place] CO2 [Moles/Vol] 24 mmol/L Normal 22-30 [facility] Comment on above: Order Comment: Speci men Type: BLOOD SPECIMEN Ordering Facility: [facility] Address: [address] [place] [address] Performed By: #### 2 777-1, , #### [facility] CLIA [id number] [address] [place] [address] [place] Creatinine [Mass/Vol] 0.66 mg/dL Low 0.73-1.22 [facility] Comment on above: Order Comment: Speci men Type: BLOOD SPECIMEN Ordering Facility: [facility] Address: [address] [place] [address] Performed By: #### 2 777-1, , #### [facility] CLIA [id number] [address] [place] [address] [place] Creatinine and Glomerular filtration rate.predicted panel (S/P/Bld) 129 mL/min/1.73m??? Normal >=60 [facility] Comment on above: Order Comment: Speci men Type: BLOOD SPECIMEN Ordering Facility: [facility] Address: [address] [place] [address] Result Comment: Lor mated Glomerular Filtration Rate [...] Performed By: #### 2 777-1, , #### [facility] CLIA [id number] [address] [place], [place] [address] [place] Glucose [Mass/Vol] 109 mg/dL High 74-99 [facility] Comment on above: Order Comment: Speci men Type: BLOOD SPECIMEN Ordering Facility: [facility] Address: [address] [place] [address] Result Comment: The [place] [employer] (ADA) provides guidance for cutoff [...] Standards of Medical Care in Diabetes 2016, [place] [employer]. Diabetes Care. 2016.39(Suppl 1). Performed By: #### 2 777-1, 49405-0, #### [facility] CLIA [id number] [address] [place] [address] [place] Potassium [Moles/Vol] 3.5 mmol/L Low 3.7-5.1 [facility] Comment on above: Order Comment: Akbari men Type: BLOOD SPECIMEN Ordering Facility: [facility] Address: [address] [place] [address] Performed By: #### 2 777-1, 43893-2, #### [facility] CLIA [id number] [address] [place] [address] [place] Sodium [Moles/Vol] 141 mmol/L Normal 136-144 [facility] Comment on above: Order Comment: Speci men Type: BLOOD SPECIMEN Ordering Facility: [facility] Address: [address] [place], [place] [address] Performed By: #### 2 777-1, 07250-0, #### [facility] CLIA [id number] [address] [place] [address] [place] Urea nitrogen [Mass/Vol] 7 mg/dL Low 9-24 [facility] Comment on above: Order Comment: Speci men Type: BLOOD SPECIMEN Ordering Facility: [facility] Address: [address] [place] [address] Performed By: #### 2 777-1, 78223-7, #### [facility] CLIA [id number] [address] [place] [address] [place] CBC W Auto Differential pane l (Bld)on 11-02-2023 Basophils (Bld) [#/Vol] 0.04 10*3/uL Normal <0.11 [facility] Comment on above: Order Comment: Speci men Type: BLOOD SPECIMEN Ordering Facility: [facility] Address: [address] [place] [address] Performed By: #### 2 4321-2, , 2776-08 #### [facility] CLIA [id number] [address] [place] [address] [place] Basophils/100 WBC (Bld) 0.5 % Normal [facility] Comment on above: Order Comment: Speci men Type: BLOOD SPECIMEN Ordering Facility: [facility] Address: [address] [place] [address] Performed By: #### 2 4321-2, , 2776-08 #### [facility] CLIA [id number] [address] [place] [address] [place] Differential cell count method Nom (Bld) Auto Normal [facility] Comment on above: Order Comment: Speci men Type: BLOOD SPECIMEN Ordering Facility: [facility] Address: [address] [place] [address] Performed By: #### 2 4321-2, , 2776-08 #### [facility] CLIA [id number] [address] [place] [address] [place] Eosinophils (Bld) [#/Vol] 0.24 10*3/uL Normal <0.46 [facility] Comment on above: Order Comment: Speci men Type: BLOOD SPECIMEN Ordering Facility: [facility] Address: [address] [place] [address] Performed By: #### 2 4321-2, , 2776-08 #### [facility] CLIA [id number] [address] [place] [address] [place] Eosinophils/100 WBC (Bld) 3.0 % Normal [facility] Comment on above: Order Comment: Speci men Type: BLOOD SPECIMEN Ordering Facility: [facility] Address: [address] [place] [address] Performed By: #### 2 4321-2, , 2776-08 #### [facility] CLIA [id number] [address] [place] [address] [place] Erythrocyte distribution width (RBC) [Ratio] 14.0 % Normal 11.5-15.0 [facility] Comment on above: Order Comment: Speci men Type: BLOOD SPECIMEN Ordering Facility: [facility] Address: [address] [place] [address] Performed By: #### 2 4321-2, , 2776-08 #### [facility] CLIA [id number] [address] [place] [address] [place] Hematocrit (Bld) [Volume fraction] 36.5 % Low 39.0-51.0 [facility] Comment on above: Order Comment: Speci men Type: BLOOD SPECIMEN Ordering Facility: [facility] Address: [address] [place] [address] Performed By: #### 2 4321-2, , 2776-08 #### [facility] CLIA [id number] [address] [place] [address] [place] Hemoglobin (Bld) [Mass/Vol] 11.2 g/dL Low 13.0-17.0 [facility] Comment on above: Order Comment: Speci men Type: BLOOD SPECIMEN Ordering Facility: [facility] Address: [address] [place] [address] Performed By: #### 2 4321-2, , 2776-08 #### [facility] CLIA [id number] [address] [place] [address] [place] Immature granulocytes (Bld) [#/Vol] 0.10 10*3/uL High <0.10 [facility] Comment on above: Order Comment: Speci men Type: BLOOD SPECIMEN Ordering Facility: [facility] Address: [address] [place] [address] Performed By: #### 2 4321-2, , 2776-08 #### [facility] CLIA [id number] [address] [place] [address] [place] Immature granulocytes/100 WBC (Bld) 1.3 % Normal [facility] Comment on above: Order Comment: Speci men Type: BLOOD SPECIMEN Ordering Facility: [facility] Address: [address] [place] [address] Performed By: #### 2 4321-2, , 2776-08 #### [facility] CLIA [id number] [address] [place] [address] [place] Lymphocytes (Bld) [#/Vol] 1.78 10*3/uL Normal 1.00-4.00 [facility] Comment on above: Order Comment: Speci men Type: BLOOD SPECIMEN Ordering Facility: [facility] Address: [address] [place] [address] Performed By: #### 2 4321-2, , 2776-08 #### [facility] CLIA [id number] [address] [place] [address] [place] Lymphocytes/100 WBC (Bld) 22.3 % Normal [facility] Comment on above: Order Comment: Speci men Type: BLOOD SPECIMEN Ordering Facility: [facility] Address: [address] [place] [address] Performed By: #### 2 4321-2, , 2776-08 #### [facility] CLIA [id number] [address] [place] [address] [place] MCH (RBC) [Entitic mass] 26.2 pg Normal 26.0-34.0 [facility] Comment on above: Order Comment: Speci men Type: BLOOD SPECIMEN Ordering Facility: [facility] Address: [address] [place] [address] Performed By: #### 2 4321-2, , 2776-08 #### [facility] CLIA [id number] [address] [place] [address] [place] MCHC (RBC) [Mass/Vol] 30.7 g/dL Normal 30.5-36.0 [facility] Comment on above: Order Comment: Speci men Type: BLOOD SPECIMEN Ordering Facility: [facility] Address: [address] [place] [address] Performed By: #### 2 4321-2, , 2776-08 #### [facility] CLIA [id number] [address] [place] [address] [place] MCV (RBC) [Entitic vol] 85.5 fL Normal 80.0-100.0 [facility] Comment on above: Order Comment: Speci men Type: BLOOD SPECIMEN Ordering Facility: [facility] Address: [address] [place] [address] Performed By: #### 2 4321-2, , 2776-08 #### [facility] CLIA [id number] [address] [place] [address] [place] Monocytes (Bld) [#/Vol] 0.58 10*3/uL Normal <0.87 [facility] Comment on above: Order Comment: Speci men Type: BLOOD SPECIMEN Ordering Facility: [facility] Address: [address] [place] [address] Performed By: #### 2 4321-2, , 2776-08 #### [facility] CLIA [id number] [address] [place], [place] [address] [place] Monocytes/100 WBC (Bld) 7.3 % Normal [facility] Comment on above: Order Comment: Speci men Type: BLOOD SPECIMEN Ordering Facility: [facility] Address: [address] [place] [address] Performed By: #### 2 4321-2, , 2776-08 #### [facility] CLIA [id number] [address] [place] [address] [place] Neutrophils (Bld) [#/Vol] 5.24 10*3/uL Normal 1.45-7.50 [facility] Comment on above: Order Comment: Speci men Type: BLOOD SPECIMEN Ordering Facility: [facility] Address: [address] [place] [address] Performed By: #### 2 4321-2, , 2776-08 #### [facility] CLIA [id number] [address] [place] [address] [place] Neutrophils/100 WBC (Bld) 65.6 % Normal [facility] Comment on above: Order Comment: Speci men Type: BLOOD SPECIMEN Ordering Facility: [facility] Address: [address] [place] [address] Performed By: #### 2 4321-2, , 2776-08 #### [facility] CLIA [id number] [address] [place] [address] [place] Nucleated RBC (Bld) [#/Vol] 10*3/uL Normal <0.01 [facility] Comment on above: Order Comment: Speci men Type: BLOOD SPECIMEN Ordering Facility: [facility] Address: [address] [place] [address] Performed By: #### 2 4321-2, , 2776-08 #### [facility] CLIA [id number] [address] [place] [address] [place] Nucleated RBC/100 WBC (Bld) [Ratio] 0.0 /100 WBC Normal [facility] [facility] Comment on above: Order Comment: Speci men Type: BLOOD SPECIMEN Ordering Facility: [facility] Address: [address] [place] [address] Performed By: #### 2 4321-2, , 2776-08 #### [facility] CLIA [id number] [address] [place] [address] [place] Platelet mean volume (Bld) [Entitic vol] 9.7 fL Normal 9.0-12.7 [facility] Comment on above: Order Comment: Speci men Type: BLOOD SPECIMEN Ordering Facility: [facility] Address: [address] [place] [address] Performed By: #### 2 4321-2, , 2776-08 #### [facility] CLIA [id number] [address] [place] [address] [place] Platelets (Bld) [#/Vol] 199 10*3/uL Normal 150-400 [facility] Comment on above: Order Comment: Speci men Type: BLOOD SPECIMEN Ordering Facility: [facility] Address: [address] [place] [address] Performed By: #### 2 4321-2, , 2776-08 #### [facility] CLIA [id number] [address] [place] [address] [place] RBC (Bld) [#/Vol] 4.27 10*6/uL Normal 4.20-6.00 [facility] Comment on above: Order Comment: Speci men Type: BLOOD SPECIMEN Ordering Facility: [facility] Address: [address] [place] [address] Performed By: #### 2 4321-2, , 2776-08 #### [facility] CLIA [id number] [address] [place] [address] [place] WBC (Bld) [#/Vol] 7.98 10*3/uL Normal 3.70-11.00 [facility] Comment on above: Order Comment: Speci men Type: BLOOD SPECIMEN Ordering Facility: [facility] Address: [address] [place] [address] Performed By: #### 2 4321-2, , 2776-08 #### [facility] CLIA [id number] [address] [place] [address] [place] Magnesium SerPl-mCncon 11-01 Magnesium [Mass/Vol] 2.3 mg/dL Normal 1.7-2.3 [facility] Comment on above: Order Comment: Speci men Type: BLOOD SPECIMEN Ordering Facility: [facility] Address: [address] [place] [address] Performed By: #### 2 777-1, 31105-3, #### [facility] CLIA [id number] [address] [place] [address] [place] Phosphate SerPl-mCncon 11-01 Phosphate [Mass/Vol] 2.6 mg/dL Low 2.7-4.8 [facility] Comment on above: Order Comment: Speci men Type: BLOOD SPECIMEN Ordering Facility: [facility] Address: [address] [place] [address] Performed By: #### 2 777-1, 21275-0, #### [facility] CLIA [id number] [address] [place] [address] [place] XR ABDOMEN 1V [...] small bowel. Findings suggestive of improving ileus. [employer] Consult[facility] Transcribe Date/Time: Nov 02 2023 11:50A Dictated by : VERONICA CARTER MD This examination was interpreted and the report reviewed and electronically signed by: VERONICA CARTER MD on Nov 02 2023 11:52AM EST [id number] N Normal [facility] Basic metabolic 2000 panelon 11-01-2023 Anion gap [Moles/Vol] 10 mmol/L Normal 9-18 [facility] Comment on above: Order Comment: Speci men Type: BLOOD SPECIMEN Ordering Facility: [facility] Address: [address] [place] [address] Performed By: #### 5 7021-8 #### [facility] CLIA [id number] [address] [place] [address] [place] Calcium [Mass/Vol] 7.9 mg/dL Low 8.5-10.2 [facility] Comment on above: Order Comment: Speci men Type: BLOOD SPECIMEN Ordering Facility: [facility] Address: [address] [place] [address] Performed By: #### 5 7021-8 #### [facility] CLIA [id number] [address] [place] [address] [place] Chloride [Moles/Vol] 114 mmol/L High 97-105 [facility] Comment on above: Order Comment: Speci men Type: BLOOD SPECIMEN Ordering Facility: [facility] Address: [address] [place] [address] Performed By: #### 5 7021-8 #### [facility] CLIA [id number] [address] [place] [address] [place] CO2 [Moles/Vol] 22 mmol/L Normal 22-30 [facility] Comment on above: Order Comment: Speci men Type: BLOOD SPECIMEN Ordering Facility: [facility] Address: [address] [place] [address] Performed By: #### 5 7021-8 #### [facility] CLIA [id number] [address] [place] [address] [place] Creatinine [Mass/Vol] 0.74 mg/dL Normal 0.73-1.22 [facility] Comment on above: Order Comment: Speci men Type: BLOOD SPECIMEN Ordering Facility: [facility] Address: [address] [place] [address] Performed By: #### 5 7021-8 #### [facility] CLIA [id number] [address] [place] [address] [place] Creatinine and Glomerular filtration rate.predicted panel (S/P/Bld) 124 mL/min/1.73m??? Normal >=60 [facility] Comment on above: Order Comment: Speci men Type: BLOOD SPECIMEN Ordering Facility: [facility] Address: [address] [place] [address] Result Comment: Lor mated Glomerular Filtration Rate [...] GFR. Performed By: #### 5 7021-8 #### [facility] CLIA [id number] [address] [place] [address] [place] Glucose [Mass/Vol] 98 mg/dL Normal 74-99 [facility] Comment on above: Order Comment: Sana zuñiga Type: BLOOD SPECIMEN Ordering Facility: [facility] Address: [address] [place] [address] Result Comment: The [place] [employer] (ADA) provides guidance for cutoff [...] Standards of Medical Care in Diabetes 2016, [place] [employer]. Diabetes Care. 2016.39(Suppl 1). Performed By: #### 5 7021-8 #### [facility] CLIA [id number] [address] [place] [address] [place] Potassium [Moles/Vol] 3.9 mmol/L Normal 3.7-5.1 [facility] Comment on above: Order Comment: Sana zuñiga Type: BLOOD SPECIMEN Ordering Facility: [facility] Address: [address] [place] [address] Performed By: #### 5 7021-8 #### [facility] CLIA [id number] [address] [place] [address] [place] Sodium [Moles/Vol] 146 mmol/L High 136-144 [facility] Comment on above: Order Comment: Sana zuñiga Type: BLOOD SPECIMEN Ordering Facility: [facility] Address: [address] [place] [address] Performed By: #### 5 7021-8 #### [facility] CLIA [id number] [address] [place] [address] [place] Urea nitrogen [Mass/Vol] 9 mg/dL Normal 9-24 [facility] Comment on above: Order Comment: Speci men Type: BLOOD SPECIMEN Ordering Facility: [facility] Address: [address] [place] [address] Performed By: #### 5 7021-8 #### [facility] CLIA [id number] [address] [place] [address] [place] CBC W Auto Differential pane l (Bld)on 11-01-2023 Basophils (Bld) [#/Vol] 10*3/uL Normal <0.11 [facility] Comment on above: Order Comment: Speci men Type: BLOOD SPECIMENOrdering Facility: [facility] Address: [address] [place] [address] Performed By: #### 5 7021-8 ####[facility] [id number] [place] [address] [place] Basophils/100 WBC (Bld) 0.3 % Normal [facility] Comment on above: Order Comment: Speci men Type: BLOOD SPECIMENOrdering Facility: [facility] Address: [address] [place] [address] Performed By: #### 5 7021-8 ####[facility] [id number] [place] [address] [place] Differential cell count method Nom (Bld) Auto Normal [facility] Comment on above: Order Comment: Speci men Type: BLOOD SPECIMENOrdering Facility: [facility] Address: [address] [place] [address] Performed By: #### 5 7021-8 ####[facility] [id number] [place] [address] [place] Eosinophils (Bld) [#/Vol] 0.23 10*3/uL Normal <0.46 [facility] Comment on above: Order Comment: Speci men Type: BLOOD SPECIMENOrdering Facility: [facility] Address: [address] [place] [address] Performed By: #### 5 7021-8 ####[facility] [id number] [place] [address] [place] Eosinophils/100 WBC (Bld) 3.0 % Normal [facility] Comment on above: Order Comment: Speci men Type: BLOOD SPECIMENOrdering Facility: [facility] Address: [address] [place] [address] Performed By: #### 5 7021-8 ####[facility] [id number] [place] [address] [place] Erythrocyte distribution width (RBC) [Ratio] 14.6 % Normal 11.5-15.0 [facility] Comment on above: Order Comment: Speci men Type: BLOOD SPECIMENOrdering Facility: [facility] Address: [address] [place] [address] Performed By: #### 5 7021-8 ####[facility] [id number] [place] [address] [place] Hematocrit (Bld) [Volume fraction] 28.6 % Low 39.0-51.0 [facility] Comment on above: Order Comment: Speci men Type: BLOOD SPECIMENOrdering Facility: [facility] Address: [address] [place] [address] Performed By: #### 5 7021-8 ####[facility] [id number] [place] [address] [place] Hemoglobin (Bld) [Mass/Vol] 9.0 g/dL Low 13.0-17.0 [facility] Comment on above: Order Comment: Speci men Type: BLOOD SPECIMENOrdering Facility: [facility] Address: [address] [place] [address] Performed By: #### 5 7021-8 ####[facility] [id number] [id number] [address] [place] Immature granulocytes (Bld) [#/Vol] 0.05 10*3/uL Normal <0.10 [facility] Comment on above: Order Comment: Speci men Type: BLOOD SPECIMENOrdering Facility: [facility] Address: [address] [place] [address] Performed By: #### 5 7021-8 ####[facility] [id number] [place] [address] [place] Immature granulocytes/100 WBC (Bld) 0.7 % Normal [facility] Comment on above: Order Comment: Speci men Type: BLOOD SPECIMENOrdering Facility: [facility] Address: [address] [place] [address] Performed By: #### 5 7021-8 ####[facility] [id number] [place] [address] [place] Lymphocytes (Bld) [#/Vol] 1.86 10*3/uL Normal 1.00-4.00 [facility] Comment on above: Order Comment: Speci men Type: BLOOD SPECIMENOrdering Facility: [facility] Address: [address] [place] [address] Performed By: #### 5 7021-8 ####[facility] [id number] [place] [address] [place] Lymphocytes/100 WBC (Bld) 24.3 % Normal [facility] Comment on above: Order Comment: Speci men Type: BLOOD SPECIMENOrdering Facility: [facility] Address: [address] [place] [address] Performed By: #### 5 7021-8 ####[facility] [id number] [place] [address] [place] MCH (RBC) [Entitic mass] 26.8 pg Normal 26.0-34.0 [facility] Comment on above: Order Comment: Speci men Type: BLOOD SPECIMENOrdering Facility: [facility] Address: [address] [place] [address] Performed By: #### 5 7021-8 ####[facility] [id number] [place] [address] [place] MCHC (RBC) [Mass/Vol] 31.5 g/dL Normal 30.5-36.0 [facility] Comment on above: Order Comment: Speci men Type: BLOOD SPECIMENOrdering Facility: [facility] Address: [address] [place] [address] Performed By: #### 5 7021-8 ####[facility] [id number] [place] [address] [place] MCV (RBC) [Entitic vol] 85.1 fL Normal 80.0-100.0 [facility] Comment on above: Order Comment: Speci men Type: BLOOD SPECIMENOrdering Facility: [facility] Address: [address] [place] [address] Performed By: #### 5 7021-8 ####[facility] [id number] [place] [address] [place] Monocytes (Bld) [#/Vol] 0.62 10*3/uL Normal <0.87 [facility] Comment on above: Order Comment: Speci men Type: BLOOD SPECIMENOrdering Facility: [facility] Address: [address] [place] [address] Performed By: #### 5 7021-8 ####[facility] [id number] [place] [address] [place] Monocytes/100 WBC (Bld) 8.1 % Normal [facility] Comment on above: Order Comment: Speci men Type: BLOOD SPECIMENOrdering Facility: [facility] Address: [address] [place] [address] Performed By: #### 5 7021-8 ####[facility] [id number] [place] [address] [place] Neutrophils (Bld) [#/Vol] 4.87 10*3/uL Normal 1.45-7.50 [facility] Comment on above: Order Comment: Speci men Type: BLOOD SPECIMENOrdering Facility: [facility] Address: [address] [place] [address] Performed By: #### 5 7021-8 ####[facility] [id number] [place] [address] [place] Neutrophils/100 WBC (Bld) 63.6 % Normal [facility] Comment on above: Order Comment: Speci men Type: BLOOD SPECIMENOrdering Facility: [facility] Address: [address] [place] [address] Performed By: #### 5 7021-8 ####[facility] [id number] [place] [address] [place] Nucleated RBC (Bld) [#/Vol] 10*3/uL Normal <0.01 [facility] Comment on above: Order Comment: Speci men Type: BLOOD SPECIMENOrdering Facility: [facility] Address: [address] [place] [address] Performed By: #### 5 7021-8 ####[facility] [id number] [place] [address] [place] Nucleated RBC/100 WBC (Bld) [Ratio] 0.0 /100 WBC Normal [facility] Comment on above: Order Comment: Speci men Type: BLOOD SPECIMENOrdering Facility: [facility] Address: [address] [place] [address] Performed By: #### 5 7021-8 ####[facility] [id number] [place] [address] [place] Platelet mean volume (Bld) [Entitic vol] 9.6 fL Normal 9.0-12.7 [facility] Comment on above: Order Comment: Speci men Type: BLOOD SPECIMENOrdering Facility: [facility] Address: [address] [place] [address] Performed By: #### 5 7021-8 ####[facility] [id number] [place] [address] [place] Platelets (Bld) [#/Vol] 148 10*3/uL Low 150-400 [facility] Comment on above: Order Comment: Speci men Type: BLOOD SPECIMENOrdering Facility: [facility] Address: [address] [place] [address] Performed By: #### 5 7021-8 ####[facility] [id number] [place] [address] [place] RBC (Bld) [#/Vol] 3.36 10*6/uL Low 4.20-6.00 [facility] Comment on above: Order Comment: Speci men Type: BLOOD SPECIMENOrdering Facility: [facility] Address: [address] [place] [address] Performed By: #### 5 7021-8 ####[facility] [id number] [place] [address] [place] WBC (Bld) [#/Vol] 7.65 10*3/uL Normal 3.70-11.00 [facility] Comment on above: Order Comment: Speci men Type: BLOOD SPECIMENOrdering Facility: [facility] Address: [address] [place] [address] Performed By: #### 5 7021-8 ####[facility] [id number] [place] [address] [place] Magnesium SerPl-mCncon 10-31 Magnesium [Mass/Vol] 2.4 mg/dL High 1.7-2.3 [facility] Comment on above: Order Comment: Speci men Type: BLOOD SPECIMEN Ordering Facility: [facility] Address: [address] [place] [address] Performed By: #### 5 7021-8 #### [facility] CLIA [id number] [address] [place] [address] [place] Phosphate SerPl-mCncon 10-31 Phosphate [Mass/Vol] 2.3 mg/dL Low 2.7-4.8 [facility] Comment on above: Order Comment: Speci men Type: BLOOD SPECIMEN Ordering Facility: [facility] Address: [address] [place] [address] Performed By: #### 5 7021-8 #### [facility] CLIA [id number] [address] [place] [address] [place] Basic metabolic 2000 panelon 10-31-2023 Anion gap [Moles/Vol] 10 mmol/L Normal 9-18 [facility] Comment on above: Order Comment: Speci men Type: BLOOD SPECIMEN Ordering Facility[facility] Address: [address] [place] [address] Performed By: #### 2 777-1, 79587-0, #### [facility] CLIA [id number] [address] [place] [address] [place] Calcium [Mass/Vol] 7.8 mg/dL Low 8.5-10.2 [facility] Comment on above: Order Comment: Speci men Type: BLOOD SPECIMEN Ordering Facility: [facility] Address: [address] [place] [address] Performed By: #### 2 777-1, 71991-8, #### [facility] CLIA [id number] [address] [place] [address] [place] Chloride [Moles/Vol] 115 mmol/L High 97-105 [facility] Comment on above: Order Comment: Speci men Type: BLOOD SPECIMEN Ordering Facility: [facility] Address: [address] [place] [address] Performed By: #### 2 777-1, , #### [facility] CLIA [id number] [address] [place] [address] [place] CO2 [Moles/Vol] 23 mmol/L Normal 22-30 [facility] Comment on above: Order Comment: Speci men Type: BLOOD SPECIMEN Ordering Facility[facility] Address: [address] [place] [address] Performed By: #### 2 777-1, , #### [facility] CLIA [id number] [address] [place] [address] [place] Creatinine [Mass/Vol] 0.72 mg/dL Low 0.73-1.22 [facility] Comment on above: Order Comment: Speci men Type: BLOOD SPECIMEN Ordering Facility: [facility] Address: [address] [place] [address] Performed By: #### 2 777-1, , #### [facility] CLIA [id number] [address] [place] [address] [place] Creatinine and Glomerular filtration rate.predicted panel (S/P/Bld) 125 mL/min/1.73m??? Normal >=60 [facility] Comment on above: Order Comment: Speci men Type: BLOOD SPECIMEN Ordering Facility: [facility] Address: [address] [place] [address] Result Comment: Lor mated Glomerular Filtration Rate [...] actual GFR. Performed By: #### 2 777-1, 52049-4, #### [facility] CLIA [id number] [address] [place] [address] [place] Glucose [Mass/Vol] 93 mg/dL Normal 74-99 [facility] Comment on above: Order Comment: Speci men Type: BLOOD SPECIMEN Ordering Facility[facility] Address: [address] [place] [address] Result Comment: The [place] [employer] (ADA) provides guidance for cutoff [...] Standards of Medical Care in Diabetes 2016, [place] [employer]. Diabetes Care. 2016.39(Suppl 1). Performed By: #### 2 777-1, 18707-3, #### [facility] CLIA [id number] [address] [place] [address] [place] Potassium [Moles/Vol] 3.9 mmol/L Normal 3.7-5.1 [facility] Comment on above: Order Comment: Speci men Type: BLOOD SPECIMEN Ordering Facility: [facility] Address: [address] [place] [address] Performed By: #### 2 777-1, 86287-5, #### [facility] CLIA [id number] [address] [place] [address] [place] Sodium [Moles/Vol] 148 mmol/L High 136-144 [facility] Comment on above: Order Comment: Speci men Type: BLOOD SPECIMEN Ordering Facility: [facility] Address: [address] [place] [address] Performed By: #### 2 777-1, 31794-9, #### [facility] CLIA [id number] [address] [place] [address] [place] Urea nitrogen [Mass/Vol] 8 mg/dL Low 9-24 [facility] Comment on above: Order Comment: Speci men Type: BLOOD SPECIMEN Ordering Facility: [facility] Address: [address] [place] [address] Performed By: #### 2 777-1, 01721-6, 92095-4 #### [facility] CLIA [id number] [address] [place] [address] [place] CBC W Auto Differential pane l (Bld)on 10-31-2023 Basophils (Bld) [#/Vol] 10*3/uL Normal <0.11 [facility] Comment on above: Order Comment: Speci men Type: BLOOD SPECIMEN Ordering Facility: [facility] Address: [address] [place] [address] Performed By: #### 5 7021-8 #### [facility] CLIA [id number] [address] [place] [address] [place] Basophils/100 WBC (Bld) 0.2 % Normal [facility] Comment on above: Order Comment: Speci men Type: BLOOD SPECIMEN Ordering Facility: [facility] Address: [address] [place] [address] Performed By: #### 5 7021-8 #### [facility] CLIA [id number] [address] [place] [address] [place] Differential cell count method Nom (Bld) Auto Normal [facility] Comment on above: Order Comment: Speci men Type: BLOOD SPECIMEN Ordering Facility: [facility] Address: [address] [place] [address] Performed By: #### 5 7021-8 #### [facility] CLIA [id number] [address] [place] [address] [place] Eosinophils (Bld) [#/Vol] 0.18 10*3/uL Normal <0.46 [facility] Comment on above: Order Comment: Speci men Type: BLOOD SPECIMEN Ordering Facility: [facility] Address: [address] [place] [address] Performed By: #### 5 7021-8 #### [facility] CLIA [id number] [address] [place] [address] [place] Eosinophils/100 WBC (Bld) 1.9 % Normal [facility] Comment on above: Order Comment: Speci men Type: BLOOD SPECIMEN Ordering Facility: [facility] Address: [address] [place] [address] Performed By: #### 5 7021-8 #### [facility] CLIA [id number] [address] [place] [address] [place] Erythrocyte distribution width (RBC) [Ratio] 14.5 % Normal 11.5-15.0 [facility] Comment on above: Order Comment: Speci men Type: BLOOD SPECIMEN Ordering Facility: [facility] Address: [address] [place] [address] Performed By: #### 5 7021-8 #### [facility] CLIA [id number] [address] [place] [address] [place] Hematocrit (Bld) [Volume fraction] 30.2 % Low 39.0-51.0 [facility] Comment on above: Order Comment: Speci men Type: BLOOD SPECIMEN Ordering Facility: [facility] Address: [address] [place] [address] Performed By: #### 5 7021-8 #### [facility] CLIA [id number] [address] [place] [address] [place] Hemoglobin (Bld) [Mass/Vol] 9.4 g/dL Low 13.0-17.0 [facility] Comment on above: Order Comment: Speci men Type: BLOOD SPECIMEN Ordering Facility[facility] Address: [address] [place] [address] Performed By: #### 5 7021-8 #### [facility] CLIA [id number] [address] [place] [address] [place] Immature granulocytes (Bld) [#/Vol] 0.06 10*3/uL Normal <0.10 [facility] Comment on above: Order Comment: Speci men Type: BLOOD SPECIMEN Ordering Facility: [facility] Address: [address] [place] [address] Performed By: #### 5 7021-8 #### [facility] CLIA [id number] [address] [place] [address] [place] Immature granulocytes/100 WBC (Bld) 0.6 % Normal [facility] Comment on above: Order Comment: Speci men Type: BLOOD SPECIMEN Ordering Facility: [facility] Address: [address] [place] [address] Performed By: #### 5 7021-8 #### [facility] CLIA [id number] [address] [place] [address] [place] Lymphocytes (Bld) [#/Vol] 1.61 10*3/uL Normal 1.00-4.00 [facility] Comment on above: Order Comment: Speci men Type: BLOOD SPECIMEN Ordering Facility: [facility] Address: [address] [place] [address] Performed By: #### 5 7021-8 #### [facility] CLIA [id number] [address] [place] [address] [place] Lymphocytes/100 WBC (Bld) 16.8 % Normal [facility] Comment on above: Order Comment: Speci men Type: BLOOD SPECIMEN Ordering Facility: [facility] Address: [address] [place] [address] Performed By: #### 5 7021-8 #### [facility] CLIA [id number] [address] [place] [address] [place] MCH (RBC) [Entitic mass] 26.5 pg Normal 26.0-34.0 [facility] Comment on above: Order Comment: Speci men Type: BLOOD SPECIMEN Ordering Facility: [facility] Address: [address] [place] [address] Performed By: #### 5 7021-8 #### [facility] CLIA [id number] [address] [place] [address] [place] MCHC (RBC) [Mass/Vol] 31.1 g/dL Normal 30.5-36.0 [facility] Comment on above: Order Comment: Speci men Type: BLOOD SPECIMEN Ordering Facility: [facility] Address: [address] [place] [address] Performed By: #### 5 7021-8 #### [facility] CLIA [id number] [address] [place] [address] [place] MCV (RBC) [Entitic vol] 85.1 fL Normal 80.0-100.0 [facility] Comment on above: Order Comment: Speci men Type: BLOOD SPECIMEN Ordering Facility: [facility] Address: [address] [place] [address] Performed By: #### 5 7021-8 #### [facility] CLIA [id number] [address] [place] [address] [place] Monocytes (Bld) [#/Vol] 0.88 10*3/uL High <0.87 [facility] Comment on above: Order Comment: Speci men Type: BLOOD SPECIMEN Ordering Facility: [facility] Address: [address] [place] [address] Performed By: #### 5 7021-8 #### [facility] CLIA [id number] [address] [place] [address] [place] Monocytes/100 WBC (Bld) 9.2 % Normal [facility] Comment on above: Order Comment: Speci men Type: BLOOD SPECIMEN Ordering Facility: [facility] Address: [address] [place] [address] Performed By: #### 5 7021-8 #### [facility] CLIA [id number] [address] [place] [address] [place] Neutrophils (Bld) [#/Vol] 6.84 10*3/uL Normal 1.45-7.50 [facility] Comment on above: Order Comment: Speci men Type: BLOOD SPECIMEN Ordering Facility: [facility] Address: [address] [place] [address] Performed By: #### 5 7021-8 #### [facility] CLIA [id number] [address] [place] [address] [place] Neutrophils/100 WBC (Bld) 71.3 % Normal [facility] Comment on above: Order Comment: Speci men Type: BLOOD SPECIMEN Ordering Facility: [facility] Address: [address] [place] [address] Performed By: #### 5 7021-8 #### [facility] CLIA [id number] [address] [place] [address] [place] Nucleated RBC (Bld) [#/Vol] 10*3/uL Normal <0.01 [facility] Comment on above: Order Comment: Speci men Type: BLOOD SPECIMEN Ordering Facility: [facility] Address: [address] [place] [address] Performed By: #### 5 7021-8 #### [facility] CLIA [id number] [address] [place] [address] [place] Nucleated RBC/100 WBC (Bld) [Ratio] 0.0 /100 WBC Normal [facility] Comment on above: Order Comment: Speci men Type: BLOOD SPECIMEN Ordering Facility: [facility] Address: [address] [place] [address] Performed By: #### 5 7021-8 #### [facility] CLIA [id number] [address] [place] [address] [place] Platelet mean volume (Bld) [Entitic vol] 9.8 fL Normal 9.0-12.7 [facility] Comment on above: Order Comment: Speci men Type: BLOOD SPECIMEN Ordering Facility: [facility] Address: [address] [place] [address] Performed By: #### 5 7021-8 #### [facility] CLIA [id number] [address] [place] [address] [place] Platelets (Bld) [#/Vol] 144 10*3/uL Low 150-400 [facility] Comment on above: Order Comment: Speci men Type: BLOOD SPECIMEN Ordering Facility: [facility] Address: [address] [place] [address] Result Comment: Resu lts checked and verified.No clot detected. Performed By: #### 5 7021-8 #### [facility] CLIA [id number] [address] [place] [address] [place] RBC (Bld) [#/Vol] 3.55 10*6/uL Low 4.20-6.00 [facility] Comment on above: Order Comment: Speci men Type: BLOOD SPECIMEN Ordering Facility: [facility] Address: [address] [place] [address] Performed By: #### 5 7021-8 #### [facility] CLIA [id number] [address] [place] [address] [place] WBC (Bld) [#/Vol] 9.59 10*3/uL Normal 3.70-11.00 [facility] Comment on above: Order Comment: Speci men Type: BLOOD SPECIMEN Ordering Facility: [facility] Address: [address] [place] [address] Performed By: #### 5 7021-8 #### [facility] CLIA [id number] [address] [place] [address] [place] CBC panel Auto (Bld)on 10-30 Erythrocyte distribution width (RBC) [Ratio] 14.5 % Normal 11.5-15.0 [facility] Comment on above: Order Comment: Speci men Type: BLOOD SPECIMEN Ordering Facility: [facility] Address: [address] [place] [address] Performed By: #### 5 7021-8 #### [facility] CLIA [id number] [address] [place] [address] [place] Hematocrit (Bld) [Volume fraction] 28.6 % Low 39.0-51.0 [facility] Comment on above: Order Comment: Speci men Type: BLOOD SPECIMEN Ordering Facility: [facility] Address: [address] [place] [address] Performed By: #### 5 7021-8 #### [facility] CLIA [id number] [address] [place] [address] [place] Hemoglobin (Bld) [Mass/Vol] 9.1 g/dL Low 13.0-17.0 [facility] Comment on above: Order Comment: Speci men Type: BLOOD SPECIMEN Ordering Facility: [facility] Address: [address] [place] [address] Performed By: #### 5 7021-8 #### [facility] CLIA [id number] [address] [place] [address] [place] MCH (RBC) [Entitic mass] 27.1 pg Normal 26.0-34.0 [facility] Comment on above: Order Comment: Speci men Type: BLOOD SPECIMEN Ordering Facility: [facility] Address: [address] [place] [address] Performed By: #### 5 7021-8 #### [facility] CLIA [id number] [address] [place] [address] [place] MCHC (RBC) [Mass/Vol] 31.8 g/dL Normal 30.5-36.0 [facility] Comment on above: Order Comment: Speci men Type: BLOOD SPECIMEN Ordering Facility: [facility] Address: [address] [place] [address] Performed By: #### 5 7021-8 #### [facility] CLIA [id number] [address] [place] [address] [place] MCV (RBC) [Entitic vol] 85.1 fL Normal 80.0-100.0 [facility] Comment on above: Order Comment: Speci men Type: BLOOD SPECIMEN Ordering Facility: [facility] Address: [address] [place] [address] Performed By: #### 5 7021-8 #### [facility] CLIA [id number] [address] [place] [address] [place] Nucleated RBC (Bld) [#/Vol] 10*3/uL Normal <0.01 [facility] Comment on above: Order Comment: Speci men Type: BLOOD SPECIMEN Ordering Facility: [facility] Address: [address] [place] [address] Performed By: #### 5 7021-8 #### [facility] CLIA [id number] [address] [place] [address] [place] Platelet mean volume (Bld) [Entitic vol] 10.1 fL Normal 9.0-12.7 [facility] Comment on above: Order Comment: Speci men Type: BLOOD SPECIMEN Ordering Facility: [facility] Address: [address] [place] [address] Performed By: #### 5 7021-8 #### [facility] CLIA [id number] [address] [place] [address] [place] Platelets (Bld) [#/Vol] 180 10*3/uL Normal 150-400 [facility] Comment on above: Order Comment: Speci men Type: BLOOD SPECIMEN Ordering Facility: [facility] Address: [address] [place] [address] Performed By: #### 5 7021-8 #### [facility] CLIA [id number] [address] [place] [address] [place] RBC (Bld) [#/Vol] 3.36 10*6/uL Low 4.20-6.00 [facility] Comment on above: Order Comment: Speci men Type: BLOOD SPECIMEN Ordering Facility: [facility] Address: [address] [place] [address] Performed By: #### 5 7021-8 #### [facility] CLIA [id number] [address] [place] [address] [place] WBC (Bld) [#/Vol] 10.06 10*3/uL Normal 3.70-11.00 [facility] Comment on above: Order Comment: Speci men Type: BLOOD SPECIMEN Ordering Facility: [facility] Address: [address] [place] [address] Performed By: #### 5 7021-8 #### [facility] CLIA [id number] [address] [place] [address] [place] CONSULT PROGon 10-31-2023 CONSULT PROG HNO ID: [id number] Author: HEAVEN CAMACHO MD Service: Urology Author Type: Resident Type: Consult Progress Note Filed: 10/31/2023 06:56 Note Text: [facility] UROLOGY PROGRESS NOTE Name: Johnny Devine Bed: H071 [id number]/[id number] Date: 10/31/2023 After Hours [facility] Urology Service Pager: [phone] ASSESSMENT AND PLAN Johnny Devine is a [...] affiliate, Dr. Joseph Camacho MD Urology Resident [facility] Pager [phone] For weekend or after hours issues please page the on-call urology pager [phone] 10/31/2023 6:48 AM Subjective SUBJECTIVE - See [...] Imaging All relevant recent imaging reviewed Normal [facility] metabolic 2000 panelon 10-31-2023 Albumin [Mass/Vol] 3.1 g/dL Low 3.9-4.9 [facility] Comment on above: Order Comment: Speci men Type: BLOOD SPECIMEN Ordering Facility: [facility] Address: [address] [place] [address] Performed By: #### 5 7021-8 #### [facility] CLIA [id number] [address] [place] [address] [place] ALP [Catalytic activity/Vol] 31 U/L Low 38-113 [facility] Comment on above: Order Comment: Speci men Type: BLOOD SPECIMEN Ordering Facility: [facility] Address: [address] [place] [address] Performed By: #### 5 7021-8 #### [facility] CLIA [id number] [address] [place] [address] [place] ALT [Catalytic activity/Vol] 6 U/L Low 10-54 [facility] Comment on above: Order Comment: Speci men Type: BLOOD SPECIMEN Ordering Facility: [facility] Address: [address] [place] [address] Performed By: #### 5 7021-8 #### [facility] CLIA [id number] [address] [place] [address] [place] Anion gap [Moles/Vol] 6 mmol/L Low 9-18 [facility] Comment on above: Order Comment: Speci men Type: BLOOD SPECIMEN Ordering Facility: [facility] Address: [address] [place] [address] Performed By: #### 5 7021-8 #### [facility] CLIA [id number] [address] [place] [address] [place] AST [Catalytic activity/Vol] 13 U/L Low 14-40 [facility] Comment on above: Order Comment: Speci men Type: BLOOD SPECIMEN Ordering Facility: [facility] Address: [address] [place] [address] Performed By: #### 5 7021-8 #### [facility] CLIA [id number] [address] [place] [address] [place] Bilirubin [Mass/Vol] mg/dL Low 0.2-1.3 [facility] Comment on above: Order Comment: Speci men Type: BLOOD SPECIMEN Ordering Facility: [facility] Address: [address] [place] [address] Performed By: #### 5 7021-8 #### [facility] CLIA [id number] [address] [place] [address] [place] Calcium [Mass/Vol] 7.4 mg/dL Low 8.5-10.2 [facility] Comment on above: Order Comment: Speci men Type: BLOOD SPECIMEN Ordering Facility: [facility] Address: [address] [place] [address] Performed By: #### 5 7021-8 #### [facility] CLIA [id number] [address] [place] [address] [place] Chloride [Moles/Vol] 115 mmol/L High 97-105 [facility] Comment on above: Order Comment: Speci men Type: BLOOD SPECIMEN Ordering Facility: [facility] Address: [address] [place] [address] Performed By: #### 5 7021-8 #### [facility] CLIA [id number] [address] [place], [place] [address] [place] CO2 [Moles/Vol] 26 mmol/L Normal 22-30 [facility] Comment on above: Order Comment: Speci men Type: BLOOD SPECIMEN Ordering Facility: [facility] Address: [address] [place] [address] Performed By: #### 5 7021-8 #### [facility] CLIA [id number] [address] [place] [address] [place] Creatinine [Mass/Vol] 0.73 mg/dL Normal 0.73-1.22 [facility] Comment on above: Order Comment: Sana zuñiga Type: BLOOD SPECIMEN Ordering Facility: [facility] Address: [address] [place] [address] Performed By: #### 5 7021-8 #### [facility] CLIA [id number] [address] [place] [address] [place] Creatinine and Glomerular filtration rate.predicted panel (S/P/Bld) 125 mL/min/1.73m??? Normal >=60 [facility] Comment on above: Order Comment: Sana zuñiga Type: BLOOD SPECIMEN Ordering Facility: [facility] Address: [address] [place] [address] Result Comment: Lor mated Glomerular Filtration Rate [...] GFR. Performed By: #### 5 7021-8 #### [facility] CLIA [id number] [address] [place] [address] [place] Glucose [Mass/Vol] 103 mg/dL High 74-99 [facility] Comment on above: Order Comment: Sana zuñiga Type: BLOOD SPECIMEN Ordering Facility: [facility] Address: [address] [place] [address] Result Comment: The [place] [employer] (ADA) provides guidance for cutoff [...] Standards of Medical Care in Diabetes 2016, [place] [employer]. Diabetes Care. 2016.39(Suppl 1). Performed By: #### 5 7021-8 #### [facility] CLIA [id number] [address] [place] [address] [place] Potassium [Moles/Vol] 4.0 mmol/L Normal 3.7-5.1 [facility] Comment on above: Order Comment: Speci men Type: BLOOD SPECIMEN Ordering Facility: [facility] Address: [address] [place] [address] Performed By: #### 5 7021-8 #### [facility] CLIA [id number] [address] [place] [address] [place] Protein [Mass/Vol] 5.6 g/dL Low 6.3-8.0 [facility] Comment on above: Order Comment: Speci men Type: BLOOD SPECIMEN Ordering Facility: [facility] Address: [address] [place] [address] Performed By: #### 5 7021-8 #### [facility] CLIA [id number] [address] [place] [address] [place] Sodium [Moles/Vol] 147 mmol/L High 136-144 [facility] Comment on above: Order Comment: Speci men Type: BLOOD SPECIMEN Ordering Facility: [facility] Address: [address] [place] [address] Performed By: #### 5 7021-8 #### [facility] CLIA [id number] [address] [place] [address] [place] Urea nitrogen [Mass/Vol] 9 mg/dL Normal 9-24 [facility] Comment on above: Order Comment: Speci men Type: BLOOD SPECIMEN Ordering Facility: [facility] Address: [address] [place] [address] Performed By: #### 5 7021-8 #### [facility] CLIA [id number] [address] [place] [address] [place] [facility] [id number] 10-31-2023 ECG01 Ventricular Rate : 9 3 BPM Atrial Rate : 93 BPM P-R Interval : 146 ms QRS Duration : 90 ms Q-T Interval : 394 ms QTC Calculation(Bazett) : 489 ms Calculated P [place] : 7 degrees Calculated R [place] : 11 degrees Calculated T [place] : -11 degrees NORMAL SINUS RHYTHM ANTEROLATERAL T WAVE ABNORMALITY BORDERLINE PROLONGED QTC ABNORMAL ECG Confirmed by TRENT BYRD MD ([id number]) on 11/06/2023 9:42:18 AM NAME : JOHNNY DEVINE PID : [id number] : 1990 Gender : Male Race : ORD : Procedure Date : Oct 31 2023 15:33:44 Edit Date : Nov 06 2023 09:42:18 Diagnosis: NORMAL SINUS RHYTHM ANTEROLATERAL T WAVE ABNORMALITY BORDERLINE PROLONGED QTC ABNORMAL ECG Confirmed by TRENT BYRD MD ([id number]) on 11/06/2023 9:42:18 AM Test Reason : AMET Location : 74 : 1 [facility] Overread By : TRENT BYRD MD Edited By : TRENT BYRD MD Referred By : PHOENIX CARDENAS Acquired by : MARI DUMONT [facility] MEDICAL EMERon 10-31-2023 MEDICAL FOREST HNO ID: [id number] Author: PASTORA KINGSLEY APRN.[employer] F[employer]RICATOR Service: Critical Care Author Type: Nurse Practitioner [...] Facility Location: Left Insertion Site: Antecubital Peripheral 10/30/23 08 Right Antecubital 18 Gauge (Active) Placement Date/Time: 10/30/23 (c) 08 Location: Right Insertion Site: Antecubital Size: 18 Gauge [facility] DIAGNOST[facility] Diagnostic Tests Reviewed: Most recent labs and imaging results. Primary Team Aware/Notified: Yes SIGNATURE: Pastora Kingsley APRN.CNP PATIENT NAME: Johnny Devine DATE: October 31, 2023 TIME: 4:13 PM Normal [facility] Magnesium SerPl-mCncon 10-30 Magnesium [Mass/Vol] 2.2 mg/dL Normal 1.7-2.3 [facility] Comment on above: Order Comment: Speci men Type: BLOOD SPECIMENOrdering Facility: [facility] Address: [address] [place] [address] Performed By: #### 1 9123-9, 2777-1 ####[facility] [id number] [place] [address] [place] Magnesium [Mass/Vol] 2.1 mg/dL Normal 1.7-2.3 [facility] Comment on above: Order Comment: Speci men Type: BLOOD SPECIMEN Ordering Facility: [facility] Address: [address] [place] [address] Performed By: #### 2 777-1, 30462-8, 50777-4 #### [facility] CLIA [id number] [address] [place] [address] [place] NURSING PROGon 10-31-2023 NURSING PROG HNO ID: [id number] Author: PAZ RIGGINS RN Service: Nursing Author Type: Registered Nurse Type: Nursing Progress Note Filed: 10/31/2023 16:32 Note Text: Called into patients room by brother who stated patient was shaking hard and having seizure like activity, on entering room patient was tachypneic and breathing hard, AMET activated. Chest xray ordered, EKG done, labs done, oxygen 89 on RA, 2L NC applied. Normal [facility] Phosphate SerPl-mCncon 10-30 Phosphate [Mass/Vol] 1.4 mg/dL Low 2.7-4.8 [facility] Comment on above: Order Comment: Speci men Type: BLOOD SPECIMENOrdering Facility: [facility] Address: [address] [place] [address] Performed By: #### 1 9123-9, 2777-1 ####[facility] [id number] [place] [address] [place] Phosphate [Mass/Vol] 2.1 mg/dL Low 2.7-4.8 [facility] Comment on above: Order Comment: Speci men Type: BLOOD SPECIMEN Ordering Facility: [facility] Address: [address] [place] [address] Performed By: #### 2 777-1, 13910-3, 43176-9 #### [facility] CLIA [id number] [address] [place], [place] [address] [address] [place] XR ABDOMEN 1V [...] abnormality. Lung bases are not well seen. [employer] Consultant: SUSI Transcribe Date/Time: Oct 31 2023 5:15P Dictated by : LEONEL ALONZO MD This examination was interpreted and the report reviewed and electronically signed by: LEONEL ALONZO MD on Oct 31 2023 5:22PM EST [id number] Normal [facility] XR CHEST 1V FRONTAL PORTon 0 10-31-2023 [...] cardiomediastinal silhouette. Other: . IMPRESSION: See result. [employer] Consultant: PSCShayna Transcribe Date/Time: Oct 31 2023 4:14P Dictated by : SHEA WORTHY MD This examination was interpreted and the report reviewed and electronically signed by: SHEA WORTHY MD on Oct 31 2023 4:15PM EST [id number] Normal [facility] ANES POSTPROC EVALon 024 ANES POSTPROC EVAL HNO ID: [id number] Author: JEREMIE JOAQUIN MD Service: ? Author Type: Anesthesiologist Type: Anesthesia Postprocedure Evaluation Filed: 10/30/2023 11:55 Note Text: POST ANESTHESIA EVALUATION NOTE : 1990 Procedure Summary Date: 10/30/23 Room / Location: [address] [facility] Anesthesia Start: 731 Anesthesia [...] October 30, 2023 TIME: 11:46 AM CSN: [id number] Normal [facility] ANES PRE-OPon 10-30-2023 ANES PRE-OP HNO ID: [id number] Author: JEREMIE JOAQUIN MD Service: ? Author Type: Anesthesiologist Type: Anesthesia Preprocedure Evaluation Filed: 10/30/2023 08:16 Note Text: ANESTHESIOLOGY DAY OF SURGERY NOTE : 1990 Procedure Information Date/Time: 10/30/23729 Procedure: DORSAL SLIT FORESKIN EXCEPT (Penis) Location: [facility]IN [facility] Surgeons: Rafael Giraldo MD [...] mL MUCOUS MEMBRANE ONCE - phenol 1 [place] (CHLORASEPTIC) 1 [place] MUCOUS MEMBRANE (TOPICAL MOUTH AND THROAT) q [...] INTRAVENOUS DAILY (6 AM) - phenol 1 [place] (CHLORASEPTIC) 1 [place] MUCOUS MEMBRANE (TOPICAL MOUTH AND THROAT) q [...] three times a day. 0800, 1600, 1999 - famotidine (PEPCID) 20 mg tablet - fluticasone (FLONASE) 50 mcg/actuation nasal spray INSTILL 2 SPRAYS PER NOSTRIL EVERY MORNING F (more content not included)... Normal [facility] Basic metabolic 2000 panelon 10-30-2023 Anion gap [Moles/Vol] 12 mmol/L Normal 9-18 [facility] Comment on above: Order Comment: Speci men Type: BLOOD SPECIMEN Ordering Facility: [facility] Address: [address] [place] [address] Performed By: #### 2 4321-2, , 2776-08 #### [facility] CLIA [id number] [address] [place] [address] [place] Calcium [Mass/Vol] 7.4 mg/dL Low 8.5-10.2 [facility] Comment on above: Order Comment: Speci men Type: BLOOD SPECIMEN Ordering Facility: [facility] Address: [address] [place] [address] Performed By: #### 2 4321-2, , 2776-08 #### [facility] CLIA [id number] [address] [place] [address] [place] Chloride [Moles/Vol] 113 mmol/L High 97-105 [facility] Comment on above: Order Comment: Speci men Type: BLOOD SPECIMEN Ordering Facility: [facility] Address: [address] [place] [address] Performed By: #### 2 432-2, , 2776-08 #### [facility] CLIA [id number] [address] [place] [address] [place] CO2 [Moles/Vol] 24 mmol/L Normal 22-30 [facility] Comment on above: Order Comment: Speci men Type: BLOOD SPECIMEN Ordering Facility: [facility] Address: [address] [place] [address] Performed By: #### 2 4321-2, , 2776-08 #### [facility] CLIA [id number] [address] [place], [place] [address] [place] Creatinine [Mass/Vol] 0.69 mg/dL Low 0.73-1.22 [facility] Comment on above: Order Comment: Speci men Type: BLOOD SPECIMEN Ordering Facility: [facility] Address: [address] [place] [address] Performed By: #### 2 4321-2, , 2776-08 #### [facility] CLIA [id number] [address] [place] [address] [place] Creatinine and Glomerular filtration rate.predicted panel (S/P/Bld) 127 mL/min/1.73m??? Normal >=60 [facility] Comment on above: Order Comment: Sana zuñiga Type: BLOOD SPECIMEN Ordering Facility: [facility] Address: [address] [place] [address] Result Comment: Lor mated Glomerular Filtration Rate [...] actual GFR. Performed By: #### 2 4321-2, 03323-7, 2777-1 #### [facility] CLIA [id number] [address] [place] [address] [place] Glucose [Mass/Vol] 98 mg/dL Normal 74-99 [facility] Comment on above: Order Comment: Sana zuñiga Type: BLOOD SPECIMEN Ordering Facility: [facility] Address: [address] [place] [address] Result Comment: The [place] Diabetes Association (ADA) provides guidance for cutoff [...] Standards of Medical Care in Diabetes 2016, [place] [employer]. Diabetes Care. 2016.39(Suppl 1). Performed By: #### 2 4321-2, 03997-3, 2777-1 #### [facility] CLIA [id number] [address] [place] [address] [place] Potassium [Moles/Vol] 3.6 mmol/L Low 3.7-5.1 [facility] Comment on above: Order Comment: Speci men Type: BLOOD SPECIMEN Ordering Facility: [facility] Address: [address] [place] [address] Performed By: #### 2 4321-2, 71390-0, 2776- #### [facility] CLIA [id number] [address] [place] [address] [place] Sodium [Moles/Vol] 149 mmol/L High 136-144 [facility] Comment on above: Order Comment: Speci men Type: BLOOD SPECIMEN Ordering Facility: [facility] Address: [address] [place] [address] Performed By: #### 2 4321-2, , 2776- #### [facility] CLIA [id number] [address] [place] [address] [place] Urea nitrogen [Mass/Vol] 9 mg/dL Normal 9-24 [facility] Comment on above: Order Comment: Speci men Type: BLOOD SPECIMEN Ordering Facility: [facility] Address: [address] [place] [address] Performed By: #### 2 4321-2, , 2776-08 #### [facility] CLIA [id number] [address] [place] [address] [place] CBC W Auto Differential pane l (Bld)on 10-30-2023 Basophils (Bld) [#/Vol] 0.03 10*3/uL Normal <0.11 [facility] Comment on above: Order Comment: Speci men Type: BLOOD SPECIMEN Ordering Facility: [facility] Address: [address] [place] [address] Performed By: #### 5 7021-8 #### [facility] CLIA [id number] [address] [place] [address] [place] Basophils/100 WBC (Bld) 0.3 % Normal [facility] Comment on above: Order Comment: Speci men Type: BLOOD SPECIMEN Ordering Facility: [facility] Address: [address] [place] [address] Performed By: #### 5 7021-8 #### [facility] CLIA [id number] [address] [place] [address] [place] Differential cell count method Nom (Bld) Auto Normal [facility] Comment on above: Order Comment: Speci men Type: BLOOD SPECIMEN Ordering Facility: [facility] Address: [address] [place] [address] Performed By: #### 5 7021-8 #### [facility] CLIA [id number] [address] [place] [address] [place] Eosinophils (Bld) [#/Vol] 0.07 10*3/uL Normal <0.46 [facility] Comment on above: Order Comment: Speci men Type: BLOOD SPECIMEN Ordering Facility: [facility] Address: [address] [place] [address] Performed By: #### 5 7021-8 #### [facility] CLIA [id number] [address] [place] [address] [place] Eosinophils/100 WBC (Bld) 0.6 % Normal [facility] Comment on above: Order Comment: Speci men Type: BLOOD SPECIMEN Ordering Facility: [facility] Address: [address] [place] [address] Performed By: #### 5 7021-8 #### [facility] CLIA [id number] [address] [place] [address] [place] Erythrocyte distribution width (RBC) [Ratio] 14.5 % Normal 11.5-15.0 [facility] Comment on above: Order Comment: Speci men Type: BLOOD SPECIMEN Ordering Facility: [facility] Address: [address] [place] [address] Performed By: #### 5 7021-8 #### [facility] CLIA [id number] [address] [place] [address] [place] Hematocrit (Bld) [Volume fraction] 31.1 % Low 39.0-51.0 [facility] Comment on above: Order Comment: Speci men Type: BLOOD SPECIMEN Ordering Facility: [facility] Address: [address] [place] [address] Performed By: #### 5 7021-8 #### [facility] CLIA [id number] [address] [place] [address] [place] Hemoglobin (Bld) [Mass/Vol] 9.8 g/dL Low 13.0-17.0 [facility] Comment on above: Order Comment: Speci men Type: BLOOD SPECIMEN Ordering Facility: [facility] Address: [address] [place] [address] Performed By: #### 5 7021-8 #### [facility] CLIA [id number] [address] [place] [address] [place] Immature granulocytes (Bld) [#/Vol] 0.06 10*3/uL Normal <0.10 [facility] Comment on above: Order Comment: Speci men Type: BLOOD SPECIMEN Ordering Facility: [facility] Address: [address] [place] [address] Performed By: #### 5 7021-8 #### [facility] CLIA [id number] [address] [place] [address] [place] Immature granulocytes/100 WBC (Bld) 0.5 % Normal [facility] Comment on above: Order Comment: Speci men Type: BLOOD SPECIMEN Ordering Facility: [facility] Address: [address] [place] [address] Performed By: #### 5 7021-8 #### [facility] CLIA [id number] [address] [place] [address] [place] Lymphocytes (Bld) [#/Vol] 1.41 10*3/uL Normal 1.00-4.00 [facility] Comment on above: Order Comment: Speci men Type: BLOOD SPECIMEN Ordering Facility: [facility] Address: [address] [place] [address] Performed By: #### 5 7021-8 #### [facility] CLIA [id number] [address] [place] [address] [place] Lymphocytes/100 WBC (Bld) 12.0 % Normal [facility] Comment on above: Order Comment: Speci men Type: BLOOD SPECIMEN Ordering Facility: [facility] Address: [address] [place] [address] Performed By: #### 5 7021-8 #### [facility] CLIA [id number] [address] [place] [address] [place] MCH (RBC) [Entitic mass] 26.6 pg Normal 26.0-34.0 [facility] Comment on above: Order Comment: Speci men Type: BLOOD SPECIMEN Ordering Facility: [facility] Address: [address] [place] [address] Performed By: #### 5 7021-8 #### [facility] CLIA [id number] [address] [place] [address] [place] MCHC (RBC) [Mass/Vol] 31.5 g/dL Normal 30.5-36.0 [facility] Comment on above: Order Comment: Speci men Type: BLOOD SPECIMEN Ordering Facility: [facility] Address: [address] [place] [address] Performed By: #### 5 7021-8 #### [facility] CLIA [id number] [address] [place] [address] [place] MCV (RBC) [Entitic vol] 84.5 fL Normal 80.0-100.0 [facility] Comment on above: Order Comment: Speci men Type: BLOOD SPECIMEN Ordering Facility: [facility] Address: [address] [place] [address] Performed By: #### 5 7021-8 #### [facility] CLIA [id number] [address] [place] [address] [place] Monocytes (Bld) [#/Vol] 1.18 10*3/uL High <0.87 [facility] Comment on above: Order Comment: Speci men Type: BLOOD SPECIMEN Ordering Facility: [facility] Address: [address] [place] [address] Performed By: #### 5 7021-8 #### [facility] CLIA [id number] [address] [place] [address] [place] Monocytes/100 WBC (Bld) 10.1 % Normal [facility] Comment on above: Order Comment: Speci men Type: BLOOD SPECIMEN Ordering Facility: [facility] Address: [address] [place] [address] Performed By: #### 5 7021-8 #### [facility] CLIA [id number] [address] [place] [address] [place] Neutrophils (Bld) [#/Vol] 8.98 10*3/uL High 1.45-7.50 [facility] Comment on above: Order Comment: Speci men Type: BLOOD SPECIMEN Ordering Facility: [facility] Address: [address] [place] [address] Performed By: #### 5 7021-8 #### [facility] CLIA [id number] [address] [place] [address] [place] Neutrophils/100 WBC (Bld) 76.5 % Normal [facility] Comment on above: Order Comment: Speci men Type: BLOOD SPECIMEN Ordering Facility: [facility] Address: [address] [place] [address] Performed By: #### 5 7021-8 #### [facility] CLIA [id number] [address] [place] [address] [place] Nucleated RBC (Bld) [#/Vol] 10*3/uL Normal <0.01 [facility] Comment on above: Order Comment: Speci men Type: BLOOD SPECIMEN Ordering Facility: [facility] Address: [address] [place] [address] Performed By: #### 5 7021-8 #### [facility] CLIA [id number] [address] [place] [address] [place] Nucleated RBC/100 WBC (Bld) [Ratio] 0.0 /100 WBC Normal [facility] Comment on above: Order Comment: Speci men Type: BLOOD SPECIMEN Ordering Facility: [facility] Address: [address] [place] [address] Performed By: #### 5 7021-8 #### [facility] CLIA [id number] [address] [place] [address] [place] Platelet mean volume (Bld) [Entitic vol] 9.7 fL Normal 9.0-12.7 [facility] Comment on above: Order Comment: Speci men Type: BLOOD SPECIMEN Ordering Facility: [facility] Address: [address] [place] [address] Performed By: #### 5 7021-8 #### [facility] CLIA [id number] [address] [place] [address] [place] Platelets (Bld) [#/Vol] 138 10*3/uL Low 150-400 [facility] Comment on above: Order Comment: Speci men Type: BLOOD SPECIMEN Ordering Facility: [facility] Address: [address] [place] [address] Performed By: #### 5 7021-8 #### [facility] CLIA [id number] [address] [place] [address] [place] RBC (Bld) [#/Vol] 3.68 10*6/uL Low 4.20-6.00 [facility] Comment on above: Order Comment: Speci men Type: BLOOD SPECIMEN Ordering Facility: [facility] Address: [address] [place] [address] Performed By: #### 5 7021-8 #### [facility] CLIA [id number] [address] [place] [address] [place] WBC (Bld) [#/Vol] 11.73 10*3/uL High 3.70-11.00 [facility] Comment on above: Order Comment: Speci men Type: BLOOD SPECIMEN Ordering Facility: [facility] Address: [address] [place] [address] Performed By: #### 5 7021-8 #### [facility] CLIA [id number] [address] [place] [address] [place] CONSULTon 10-30-2023 CONSULT HNO ID: [id number] Author: RAFAEL GIRALDO MD Service: Urology Author [...] the meatal orifice was visualized, an 8 [place]ral[place]arian Haskins catheter was sterilely placed. However, the [...] Dr. 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 CYU was [...] CONGESTIONDisp: Rfl: guanFACINE (INTUNIV ER) 4 mg [id number] 4 mg by mouth onc (more content not included)... Normal [facility] Magnesium SerPl-mCncon 10-29 Magnesium [Mass/Vol] 2.0 mg/dL Normal 1.7-2.3 [facility] Comment on above: Order Comment: Speci men Type: BLOOD SPECIMENOrdering Facility: [facility] Address: [address] [place] [address] Performed By: #### 2 4321-2, 37519-5, 2777-1 ####[facility] [id number] [address] [place] NURSING PROGon 10-30-2023 NURSING PROG HNO ID: [id number] Author: SHAHRIAR FARFAN RN Service: Nursing Author Type: Registered Nurse Type: Nursing Progress Note Filed: 10/30/2023 09:52 Note Text: Pt awake, opens eyes spontaneously, MEDINA to command, generalized weakness. Nonverbal at baseline. VSS. Appears comfortable, no grimacing, resting Normal [facility] NURSING PROG HNO ID: [id number] Author: SHAHRIAR FARFAN RN Service: Nursing Author [...] effective in protecting the patient's safety: Alarms, Fabrication Technician/Sitter, Bed in Low/Locked Position Next, a comprehensive assessment was performed and warranted placing the patient in Soft Bilateral Wrists, the least restrictive restraint needed to protect the patient's safety. Ongoing safety assessments and evaluation for earliest removal of restraints will be performed. DATE: October 30, 2023 TIME: 9:48 AM Shahriar Farfan RN Normal [facility] NURSING PROG HNO ID: [id number] Author: LEONARD FRANCIS JR, RN Service: Nursing Author Type: Registered Nurse Type: Nursing Progress Note Filed: 10/30/2023 01:11 Note Text: 2200 PM: PT does not have have a haskins catheter post op. Per report, prior to OR PT was admitted from OSH with a pediatric haskins in place due to difficulties with normal catheter. [id number] Gen surg notified. PT is clean and [...] Gen surg at bedside Leonard PINEDA. Normal [facility] OPERATIVE NOon 10-30-2023 OPERATIVE NO HNO ID: [id number] Author: HERMAN JOHNSON MD Service: Urology Author Type: Resident Type: Operative Report Filed: 10/30/2023 09:08 Note Text: Attestation signed by Oscar Ruiz MD at 10/30/2023 9:20 AM Attestation The primary proceduralist, Wale Thomas, performed the entire procedure with the assistance of Dr. Johnson. I agree with the documentation above. [facility] UROLOGY OPERATIVE REPORT Patient Name: Johnny Devine Patient Log ID: [id number] Surgery Date: 10/30/2023 Incision/Procedure Start Time: 8:03 AM Incision Close/Procedure End Time: 8:17 AM Surgeon(s) and Professor Of Astronomy(s): Surgeon(s) and Role: * Oscar Ruiz MD [...] I agree with the documentation above. Normal [facility] Phosphate SerPl-mCncon 10-29 Phosphate [Mass/Vol] 2.2 mg/dL Low 2.7-4.8 [facility] Comment on above: Order Comment: Speci men Type: BLOOD SPECIMENOrdering Facility: [facility] Address: [address] [place] [address] Performed By: #### 2 4321-2, 39390-6, 2777-1 ####[facility] [id number] [place] [address] [place] XR ABDOMEN 1V [...] likely an ileus. Sigmoid distention appears improved [employer] Consultant: SUSI Transcribe Date/Time: Oct 30 2023 7:41A Dictated by : RYAN MORRIS MD This examination was interpreted and the report reviewed and electronically signed by: RYAN MORRIS MD on Oct 30 2023 7:43AM EST [id number] Normal [facility] ANES POSTPROC EVALon 024 ANES POSTPROC EVAL HNO ID: [id number] Author: DORIE TENA DO Service: ? Author Type: Anesthesiologist Type: Anesthesia Postprocedure Evaluation Filed: 10/29/2023 14:37 Note Text: POST ANESTHESIA EVALUATION NOTE : 1990 Procedure Summary Date: 10/29/23 [address] Start: 947 Anesthesia Stop: 121 Procedure: EXPLORATORY LAPAROTOMY (Abdomen) Diagnosis: SBO (small [...] October 29, 2023 TIME: 2:34 PM CSN: [id number] Normal [facility] ANES PRE-OPon 10-29-2023 ANES PRE-OP HNO ID: [id number] Author: KENZIE MORE APRN.CRNA Service: ? Author Type: Nurse Clinical Data Programmer Type: Anesthesia Preprocedure Evaluation Filed: 10/29/2023 09:58 Note Text: ANESTHESIOLOGY DAY OF SURGERY NOTE : 1990 Procedure Information Anesthesia Start Date/Time: 10/29/23947 Procedure: EXPLORATORY LAPAROTOMY (Abdomen) Location: [facility] [place] Surgeons: Samuel Robin MD There is no [...] HR - [Held on Transfer] phenol 1 [place] (CHLORASEPTIC) 1 [place] MUCOUS MEMBRANE (TOPICAL MOUTH AND THROAT) q [...] by mouth three times a day. 0800, 1199, 1999 - Sennosid (more content not included)... Normal [facility] BRIEF OP NOTon 10-29-2023 BRIEF OP NOT HNO ID: [id number] Author: PA ALICEA MD Service: General Surgery Author Type: Resident Type: Brief Op Note Filed: 10/29/2023 11:47 Note Text: [facility] BRIEF OP NOTE LOG ID: [id number] SURGERY/PROCEDURE DATE: 10/29/2023 INCISION/PROCEDURE START TIME: 10:25 AM INCISION CLOSE/PROCEDURE END TIME: 11:40 AM SURGEON(S)/PROCEDURAL IST(S) AND PSYCHIATRIC MENTAL HEALTH NURSE(S): Surgeon(s) and Role: * Samuel Robin MD [...] 29, 2023 TIME: 11:45 AM PAGER/CONTACT #: [facility] BRIEF OP NOT HNO ID: [id number] Author: DANTE CHERRY MD Service: General Surgery Author Type: Resident Type: Brief Op Note Filed: 10/29/2023 11:44 Note Text: BRIEF OPERATIVE / PROCEDURE NOTE LOG ID: [id number] SURGERY/PROCEDURE DATE: 10/29/2023 INCISION/PROCEDURE START TIME: 10:25 AM INCISION CLOSE/PROCEDURE END TIME: 11:40 AM SURGEON(S)/PROCEDURAL IST(S) AND PSYCHIATRIC MENTAL HEALTH NURSE(S): Surgeon(s) and Role: * Samuel Robin MD [...] DATE: October 29, 2023 TIME: 11:36 AM [facility] BRIEF OP NOT HNO ID: [id number] Author: PA ALICEA MD Service: General Surgery Author Type: Resident Type: Brief Op Note Filed: 10/29/2023 08:42 Note Text: Created in Error Normal [facility] Basic metabolic 2000 panelon 10-29-2023 Anion gap [Moles/Vol] 11 mmol/L Normal 9-18 [facility] Comment on above: Order Comment: Speci men Type: BLOOD SPECIMEN Ordering Facility: [facility] Address: [address] [place] [address] Performed By: #### 2 777-1, 82669-0, #### [facility] CLIA [id number] [address] [place] [address] [place] Calcium [Mass/Vol] 7.4 mg/dL Low 8.5-10.2 [facility] Comment on above: Order Comment: Speci men Type: BLOOD SPECIMEN Ordering Facility: [facility] Address: [address] [place] [address] Performed By: #### 2 777-1, 99274-0, #### [facility] CLIA [id number] [address] [place] [address] [place] Chloride [Moles/Vol] 112 mmol/L High 97-105 [facility] Comment on above: Order Comment: Speci men Type: BLOOD SPECIMEN Ordering Facility: [facility] Address: [address] [place] [address] Performed By: #### 2 777-1, 39768-0, #### [facility] CLIA [id number] [address] [place] [address] [place] CO2 [Moles/Vol] 21 mmol/L Low 22-30 [facility] Comment on above: Order Comment: Speci men Type: BLOOD SPECIMEN Ordering Facility: [facility] Address: [address] [place] [address] Performed By: #### 2 777-1, 35943-8, #### [facility] CLIA [id number] [address] [place] [address] [place] Creatinine [Mass/Vol] 0.69 mg/dL Low 0.73-1.22 [facility] Comment on above: Order Comment: Speci men Type: BLOOD SPECIMEN Ordering Facility: [facility] Address: [address] [place] [address] Performed By: #### 2 777-1, 99181-1, #### [facility] CLIA [id number] [address] [place] [address] [place] Creatinine and Glomerular filtration rate.predicted panel (S/P/Bld) 127 mL/min/1.73m??? Normal >=60 [facility] Comment on above: Order Comment: Sana zuñiga Type: BLOOD SPECIMEN Ordering Facility: [facility] Address: [address] [place] [address] Result Comment: Lor mated Glomerular Filtration Rate [...] actual GFR. Performed By: #### 2 777-1, 99433-6, #### [facility] CLIA [id number] [address] [place] [address] [place] Glucose [Mass/Vol] 115 mg/dL High 74-99 [facility] Comment on above: Order Comment: Sana zuñiga Type: BLOOD SPECIMEN Ordering Facility: [facility] Address: [address] [place] [address] Result Comment: The [place] Diabetes [employer] (ADA) provides guidance for cutoff [...] Standards of Medical Care in Diabetes 2016, [place] [employer]. Diabetes Care. 2016.39(Suppl 1). Performed By: #### 2 777-1, 76449-2, #### [facility] CLIA [id number] [address] [place] [address] [place] Potassium [Moles/Vol] 3.8 mmol/L Normal 3.7-5.1 [facility] Comment on above: Order Comment: Speci men Type: BLOOD SPECIMEN Ordering Facility: [facility] Address: [address] [place] [address] Performed By: #### 2 777-1, 95295-7, #### [facility] CLIA [id number] [address] [place] [address] [place] Sodium [Moles/Vol] 144 mmol/L Normal 136-144 [facility] Comment on above: Order Comment: Speci men Type: BLOOD SPECIMEN Ordering Facility: [facility] Address: [address] [place] [address] Performed By: #### 2 777-1, 23158-0, #### [facility] CLIA [id number] [address] [place] [address] [place] Urea nitrogen [Mass/Vol] 13 mg/dL Normal 9-24 [facility] Comment on above: Order Comment: Speci men Type: BLOOD SPECIMEN Ordering Facility: [facility] Address: [address] [place] [address] Performed By: #### 2 777-1, 81480-0, #### [facility] CLIA [id number] [address] [place], [place] [id number] [place] CBC W Auto Differential pane l (Bld)on 10-29-2023 Basophils (Bld) [#/Vol] 10*3/uL Normal <0.11 [facility] Comment on above: Order Comment: Speci men Type: BLOOD SPECIMEN Ordering Facility: [facility] Address: [address] [place] [address] Performed By: #### 5 7021-8 #### [facility] CLIA [id number] [address] [place] [address] [place] Basophils/100 WBC (Bld) 0.1 % Normal [facility] Comment on above: Order Comment: Speci men Type: BLOOD SPECIMEN Ordering Facility: [facility] Address: [address] [place] [address] Performed By: #### 5 7021-8 #### [facility] CLIA [id number] [address] [place] [address] [place] Differential cell count method Nom (Bld) Auto Normal [facility] Comment on above: Order Comment: Speci men Type: BLOOD SPECIMEN Ordering Facility: [facility] Address: [address] [place] [address] Performed By: #### 5 7021-8 #### [facility] CLIA [id number] [address] [place] [address] [place] Eosinophils (Bld) [#/Vol] 10*3/uL Normal <0.46 [facility] Comment on above: Order Comment: Speci men Type: BLOOD SPECIMEN Ordering Facility: [facility] Address: [address] [place] [address] Performed By: #### 5 7021-8 #### [facility] CLIA [id number] [address] [place] [address] [place] Eosinophils/100 WBC (Bld) 0.1 % Normal [facility] Comment on above: Order Comment: Speci men Type: BLOOD SPECIMEN Ordering Facility: [facility] Address: [address] [place] [address] Performed By: #### 5 7021-8 #### [facility] CLIA [id number] [address] [place] [address] [place] Erythrocyte distribution width (RBC) [Ratio] 14.6 % Normal 11.5-15.0 [facility] Comment on above: Order Comment: Speci men Type: BLOOD SPECIMEN Ordering Facility: [facility] Address: [address] [place] [address] Performed By: #### 5 7021-8 #### [facility] CLIA [id number] [address] [place] [address] [place] Hematocrit (Bld) [Volume fraction] 33.0 % Low 39.0-51.0 [facility] Comment on above: Order Comment: Speci men Type: BLOOD SPECIMEN Ordering Facility: [facility] Address: [address] [place] [address] Performed By: #### 5 7021-8 #### [facility] CLIA [id number] [address] [place] [address] [place] Hemoglobin (Bld) [Mass/Vol] 10.5 g/dL Low 13.0-17.0 [facility] Comment on above: Order Comment: Speci men Type: BLOOD SPECIMEN Ordering Facility: [facility] Address: [address] [place] [address] Performed By: #### 5 7021-8 #### [facility] CLIA [id number] [address] [place] [address] [place] Immature granulocytes (Bld) [#/Vol] 0.05 10*3/uL Normal <0.10 [facility] Comment on above: Order Comment: Speci men Type: BLOOD SPECIMEN Ordering Facility: [facility] Address: [address] [place] [address] Performed By: #### 5 7021-8 #### [facility] CLIA [id number] [address] [place] [address] [place] Immature granulocytes/100 WBC (Bld) 0.4 % Normal [facility] Comment on above: Order Comment: Speci men Type: BLOOD SPECIMEN Ordering Facility: [facility] Address: [address] [place] [address] Performed By: #### 5 7021-8 #### [facility] CLIA [id number] [address] [place] [address] [place] Lymphocytes (Bld) [#/Vol] 1.25 10*3/uL Normal 1.00-4.00 [facility] Comment on above: Order Comment: Speci men Type: BLOOD SPECIMEN Ordering Facility: [facility] Address: [address] [place] [address] Performed By: #### 5 7021-8 #### [facility] CLIA [id number] [address] [place] [address] [place] Lymphocytes/100 WBC (Bld) 8.9 % Normal [facility] Comment on above: Order Comment: Speci men Type: BLOOD SPECIMEN Ordering Facility: [facility] Address: [address] [place] [address] Performed By: #### 5 7021-8 #### [facility] CLIA [id number] [address] [place] [address] [place] MCH (RBC) [Entitic mass] 26.9 pg Normal 26.0-34.0 [facility] Comment on above: Order Comment: Speci men Type: BLOOD SPECIMEN Ordering Facility: [facility] Address: [address] [place] [address] Performed By: #### 5 7021-8 #### [facility] CLIA [id number] [address] [place] [address] [place] MCHC (RBC) [Mass/Vol] 31.8 g/dL Normal 30.5-36.0 [facility] Comment on above: Order Comment: Speci men Type: BLOOD SPECIMEN Ordering Facility: [facility] Address: [address] [place] [address] Performed By: #### 5 7021-8 #### [facility] CLIA [id number] [address] [place] [address] [place] MCV (RBC) [Entitic vol] 84.6 fL Normal 80.0-100.0 [facility] Comment on above: Order Comment: Speci men Type: BLOOD SPECIMEN Ordering Facility: [facility] Address: [address] [place] [address] Performed By: #### 5 7021-8 #### [facility] CLIA [id number] [address] [place] [address] [place] Monocytes (Bld) [#/Vol] 1.50 10*3/uL High <0.87 [facility] Comment on above: Order Comment: Speci men Type: BLOOD SPECIMEN Ordering Facility: [facility] Address: [address] [place] [address] Performed By: #### 5 7021-8 #### [facility] CLIA [id number] [address] [place] [address] [place] Monocytes/100 WBC (Bld) 10.6 % Normal [facility] Comment on above: Order Comment: Speci men Type: BLOOD SPECIMEN Ordering Facility: [facility] Address: [address] [place] [address] Performed By: #### 5 7021-8 #### [facility] CLIA [id number] [address] [place] [address] [place] Neutrophils (Bld) [#/Vol] 11.26 10*3/uL High 1.45-7.50 [facility] Comment on above: Order Comment: Speci men Type: BLOOD SPECIMEN Ordering Facility: [facility] Address: [address] [place] [address] Performed By: #### 5 7021-8 #### [facility] CLIA [id number] [address] [place] [address] [place] Neutrophils/100 WBC (Bld) 79.9 % Normal [facility] Comment on above: Order Comment: Speci men Type: BLOOD SPECIMEN Ordering Facility: [facility] Address: [address] [place] [address] Performed By: #### 5 7021-8 #### [facility] CLIA [id number] [address] [place] [address] [place] Nucleated RBC (Bld) [#/Vol] 10*3/uL Normal <0.01 [facility] Comment on above: Order Comment: Speci men Type: BLOOD SPECIMEN Ordering Facility: [facility] Address: [address] [place] [address] Performed By: #### 5 7021-8 #### [facility] CLIA [id number] [address] [place] [address] [place] Nucleated RBC/100 WBC (Bld) [Ratio] 0.0 /100 WBC Normal [facility] Comment on above: Order Comment: Speci men Type: BLOOD SPECIMEN Ordering Facility: [facility] Address: [address] [place] [address] Performed By: #### 5 7021-8 #### [facility] CLIA [id number] [address] [place] [address] [place] Platelet mean volume (Bld) [Entitic vol] 9.4 fL Normal 9.0-12.7 [facility] Comment on above: Order Comment: Speci men Type: BLOOD SPECIMEN Ordering Facility: [facility] Address: [address] [place] [address] Performed By: #### 5 7021-8 #### [facility] CLIA [id number] [address] [place] [address] [place] Platelets (Bld) [#/Vol] 151 10*3/uL Normal 150-400 [facility] Comment on above: Order Comment: Speci men Type: BLOOD SPECIMEN Ordering Facility: [facility] Address: [address] [place] [address] Performed By: #### 5 7021-8 #### [facility] CLIA [id number] [address] [place] [address] [place] RBC (Bld) [#/Vol] 3.90 10*6/uL Low 4.20-6.00 [facility] Comment on above: Order Comment: Speci men Type: BLOOD SPECIMEN Ordering Facility: [facility] Address: [address] [place] [address] Performed By: #### 5 7021-8 #### [facility] CLIA [id number] [address] [place] [address] [place] WBC (Bld) [#/Vol] 14.09 10*3/uL High 3.70-11.00 [facility] Comment on above: Order Comment: Speci men Type: BLOOD SPECIMEN Ordering Facility: [facility] Address: [address] [place] [address] Performed By: #### 5 7021-8 #### [facility] CLIA [id number] [address] [place] [address] [place] CONFIRM BLOOD TYPEon 024 ABO A Normal [facility] Comment on above: Order Comment: Speci men Type: BLOOD SPECIMENOrdering Facility: [facility] Address: [address] [place] [address] Performed By: #### C ONABO ####[facility] B[facility] BANKCLIA [id number] [place] [address] [place] Rh Nom (Bld) Positive Normal [facility] Comment on above: Order Comment: Speci men Type: BLOOD SPECIMENOrdering Facility: [facility] Address: [address] [place] [address] Performed By: #### C ONABO ####CC [facility] BLOOD BANKCLIA [id number] [place] [address] [place] Magnesium SerPl-mCncon 10-28 Magnesium [Mass/Vol] 1.8 mg/dL Normal 1.7-2.3 [facility] Comment on above: Order Comment: Speci men Type: BLOOD SPECIMEN Ordering Facility: [facility] Address: [address] [place] [address] Performed By: #### 2 777-1, 32745-3, 37804-3 #### [facility] CLIA [id number] [address] [place] [address] [place] NURSING PROGon 10-29-2023 NURSING PROG HNO ID: [id number] Author: BAILEY HUTSON RN Service: Nursing Author Type: Registered Nurse Type: Nursing Progress Note Filed: 10/29/2023 18:29 Note Text: 1827 [place] [phone] to notify of patient's current temp of 100.2 F. Will continue to monitor. Normal [facility] NURSING PROG HNO ID: [id number] Author: BAILEY HUTSON RN Service: Nursing Author Type: Registered Nurse Type: Nursing Progress Note Filed: 10/29/2023 17:35 Note Text: Nursing Progress: Topic: RESTRAINT NON-VIOLENT PATIENT NAME: Johnny Devine Patient Location: [place] [address] Room: [place] [address] The patient demonstrates Attempting to Remove Medical [...] the patient's safety: Bed in Low/Locked Position, Fabrication Technician/Sitter, Diversion Activities, IV/Feeding Bag/Pump Out of Vision, [...] 2023 TIME: 5:07 PM Bailey Hutson RN [facility] NURSING PROG HNO ID: [id number] Author: BAILEY HUTSON RN Service: Nursing Author Type: Registered Nurse Type: Nursing Progress Note Filed: 10/29/2023 15:25 Note Text: 1518 [place] [phone] to request indwelling Haskins for incontinence and skin breakdown management. Will continue to monitor. 1523 Patient repeatedly attempt to remove NG tube despite the sitter at the bedside. Primary team notified with request for order for bilateral soft wrist restraint. Will continue to monitor. Normal [facility] NURSING PROG HNO ID: [id number] Author: OLIMPIA MAGALLON RN Service: Nursing Author Type: Registered Nurse Type: Nursing Progress Note Filed: 10/29/2023 13:37 Note Text: Pt resting quietly with patient cisco administrator at bedside. Several attempts to reach for NG tube, patient relaxes and moves hand away from from drain if you say hand down Per brother John Paul. This has been effective. Pt resting quietly, no facial grimacing, posturing, or guarding. Vss, resp rate even and non labored. Pt has returned to presurgical baseline and is being transferred back to [facility] in stable condition. Opening eyes when name is called. Brother Delbert (guardian) updated prior to patient transfer. Normal [facility] OPERATIVE NOon 10-29-2023 OPERATIVE NO HNO ID: [id number] Author: SAMUEL ROBIN MD Service: General Surgery Author Type: Physician Type: Operative Report Filed: 10/29/2023 13:52 Note Text: OPERATIVE/PROCEDURE REPORT LOG ID: [id number] SURGERY/PROCEDURE DATE: 10/29/2023 INCISION/PROCEDURE START TIME: 10:25 AM INCISION CLOSE/PROCEDURE END TIME: 11:40 AM SURGEON(S)/PROCEDURAL IST(S) AND PSYCHIATRIC MENTAL HEALTH NURSE(S): Surgeon(s) and Role: * Samuel Robin MD [...] for the entirety of the case. Normal [facility] Phosphate SerPl-mCncon 10-28 Phosphate [Mass/Vol] 2.3 mg/dL Low 2.7-4.8 [facility] Comment on above: Order Comment: Speci men Type: BLOOD SPECIMEN Ordering Facility: [facility] Address: [address] [place] [address] Performed By: #### 2 777-1, 15224-4, #### [facility] CLIA [id number] [address] [place] [address] [place] SEPSIS LACTATEon 10-29-2023 Lactate [Moles/Vol] 1.2 mmol/L Normal <=2.0 [facility] Comment on above: Order Comment: Speci men Type: BLOOD SPECIMENOrdering Facility: [facility] Address: [address] [place] [address] Performed By: #### S LACT ####[facility] [id number] [address] [place] Order Comment: Speci men Type: BLOOD SPECIMEN Ordering Facility: [facility] Address: [address] [place] [address] Performed By: #### 2 777-1, 78191-9, #### [facility] CLIA [id number] [address] [place] [address] [place] Urinalysis complete panel (U )on 10-29-2023 Bacteria LM.HPF (Urine sed) [#/Area] Negative Normal Negative [facility] Comment on above: Order Comment: Speci men Type: BLOOD SPECIMEN Ordering Facility: [facility] Address: [address] [place] [address] Performed By: #### 2 777-1, 55807-4, #### [facility] CLIA [id number] [address] [place] [address] [place] Bilirubin Ql (U) Negative Normal Negative [facility] Comment on above: Order Comment: Speci men Type: BLOOD SPECIMEN Ordering Facility: [facility] Address: [address] [place] [address] Performed By: #### 2 777-1, , #### [facility] CLIA [id number] [address] [place] [address] [place] Clarity (Unsp spec) Clear Normal Clear [facility] Comment on above: Order Comment: Speci men Type: BLOOD SPECIMEN Ordering Facility: [facility] Address: [address] [place] [address] Performed By: #### 2 777-1, , #### [facility] CLIA [id number] [address] [place] [address] [place] Color (U) Yellow Normal Yellow [facility] Comment on above: Order Comment: Speci men Type: BLOOD SPECIMEN Ordering Facility: [facility] Address: [address] [place] [address] Performed By: #### 2 777-1, , #### [facility] CLIA [id number] [address] [place] [address] [place] Epithelial cells LM.HPF (Urine sed) [#/Area] None Seen Normal [facility] Comment on above: Order Comment: Speci men Type: BLOOD SPECIMEN Ordering Facility: [facility] Address: [address] [place] [address] Performed By: #### 2 777-1, 20434-4, #### [facility] CLIA [id number] [address] [place] [address] [place] Glucose Test strip (U) [Mass/Vol] Negative Normal Negative [facility] Comment on above: Order Comment: Speci men Type: BLOOD SPECIMEN Ordering Facility: [facility] Address: [address] [place] [address] Performed By: #### 2 777-1, 34101-0, #### [facility] CLIA [id number] [address] [place] [address] [place] Hemoglobin Ql (U) 2+ Abnormal Negative [facility] Comment on above: Order Comment: Speci men Type: BLOOD SPECIMEN Ordering Facility: [facility] Address: [address] [place] [address] Performed By: #### 2 777-1, 00817-3, #### [facility] CLIA [id number] [address] [place] [address] [place] Hyaline casts (Urine sed) [#/Area] 0 /[LPF] Normal 0 /LPF [facility] Comment on above: Order Comment: Speci men Type: BLOOD SPECIMEN Ordering Facility: [facility] Address: [address] [place] [address] Performed By: #### 2 777-1, 21919-3, #### [facility] CLIA [id number] [address] [place] [address] [place] Ketones Ql (U) Negative Normal Negative [facility] Comment on above: Order Comment: Speci men Type: BLOOD SPECIMEN Ordering Facility: [facility] Address: [address] [place] [address] Performed By: #### 2 777-1, 73377-6, #### [facility] CLIA [id number] [address] [place] [address] [place] Leukocyte esterase Test strip Ql (U) Negative Normal Negative [facility] Comment on above: Order Comment: Speci men Type: BLOOD SPECIMEN Ordering Facility: [facility] Address: [address] [place] [address] Performed By: #### 2 777-1, 00945-1, #### [facility] CLIA [id number] [address] [place] [address] [place] Nitrite Ql (U) Negative Normal Negative [facility] Comment on above: Order Comment: Speci men Type: BLOOD SPECIMEN Ordering Facility: [facility] Address: [address] [place] [address] Performed By: #### 2 777-1, , #### [facility] CLIA [id number] [address] [place] [address] [place] pH (U) 6.5 [pH] Normal <8.5 [facility] Comment on above: Order Comment: Speci men Type: BLOOD SPECIMEN Ordering Facility: [facility] Address: [address] [place] [address] Performed By: #### 2 777-1, , #### [facility] CLIA [id number] [address] [place] [address] [place] Protein (U) [Mass/Vol] Trace Abnormal Negative [facility] Comment on above: Order Comment: Speci men Type: BLOOD SPECIMEN Ordering Facility: [facility] Address: [address] [place] [address] Performed By: #### 2 777-1, , #### [facility] CLIA [id number] [address] [place] [address] [place] RBC LM.HPF (Urine sed) [#/Area] 6-10 /HPF Abnormal 0-2 /HPF [facility] Comment on above: Order Comment: Speci men Type: BLOOD SPECIMEN Ordering Facility: [facility] Address: [address] [place] [address] Performed By: #### 2 777-1, 21987-0, #### [facility] CLIA [id number] [address] [place] [address] [place] Specific gravity (U) [Rel density] 1.021 Normal 1.005-1.030 [facility] Comment on above: Order Comment: Speci men Type: BLOOD SPECIMEN Ordering Facility: [facility] Address: [address] [place] [address] Performed By: #### 2 777-1, 07109-3, #### [facility] CLIA [id number] [address] [place] [address] [place] Urobilinogen Ql (U) 0.2 EU/dL Normal 0.2-1.0 EU/dL [facility] Comment on above: Order Comment: Speci men Type: BLOOD SPECIMEN Ordering Facility: [facility] Address: [address] [place] [address] Performed By: #### 2 777-1, 24880-2, #### [facility] CLIA [id number] [address] [place] [address] [place] WBC LM.HPF (Urine sed) [#/Area] 0-5 /HPF Normal 0-5 /HPF [facility] Comment on above: Order Comment: Speci men Type: BLOOD SPECIMEN Ordering Facility: [facility] Address: [address] [place] [address] Performed By: #### 2 777-1, 92263-6, #### [facility] CLIA [id number] [address] [place] [address] [place] XR CHEST 1V FRONTAL PORTon 0 - XR CHEST 1V FRONTAL PORT * * [...] are unremarkable. Other: . IMPRESSION: See result. [employer] Consultant: PSCB Transcribe Date/Time: Oct 29 2023 12:20A Dictated by : SHEA WORTHY MD This examination was interpreted and the report reviewed and electronically signed by: SHEA WORTHY MD on Oct 29 2023 12:22AM EST [id number] Normal [facility] aPTT PPPon 10-29-2023 aPTT Coag (PPP) [Time] 26.3 s Normal 23.0-32.4 [facility] Comment on above: Order Comment: Speci men Type: BLOOD SPECIMEN Ordering Facility: [facility] Address: [address] [place] [address] Performed By: #### 2 777-1, 86790-7, #### [facility] CLIA [id number] [address] [place] [address] [place] Basic metabolic 2000 panelon 10-28-2023 Anion gap [Moles/Vol] 12 mmol/L Normal 9-18 [facility] Comment on above: Order Comment: Speci men Type: BLOOD SPECIMEN Ordering Facility: [facility] Address: [address] [place] [address] Performed By: #### 2 777-1, 43274-3, #### [facility] CLIA [id number] [address] [place] [address] [place] Calcium [Mass/Vol] 7.8 mg/dL Low 8.5-10.2 [facility] Comment on above: Order Comment: Speci men Type: BLOOD SPECIMEN Ordering Facility: [facility] Address: [address] [place] [address] Performed By: #### 2 777-1, 99155-9, #### [facility] CLIA [id number] [address] [place] [address] [place] Chloride [Moles/Vol] 110 mmol/L High 97-105 [facility] Comment on above: Order Comment: Speci men Type: BLOOD SPECIMEN Ordering Facility: [facility] Address: [address] [place] [address] Performed By: #### 2 777-1, 23670-1, #### [facility] CLIA [id number] [address] [place] [address] [place] CO2 [Moles/Vol] 15 mmol/L Low 22-30 [facility] Comment on above: Order Comment: Speci men Type: BLOOD SPECIMEN Ordering Facility: [facility] Address: [address] [place] [address] Performed By: #### 2 777-1, , #### [facility] CLIA [id number] [address] [place] [address] [place] Creatinine [Mass/Vol] 0.72 mg/dL Low 0.73-1.22 [facility] Comment on above: Order Comment: Speci men Type: BLOOD SPECIMEN Ordering Facility: [facility] Address: [address] [place] [address] Performed By: #### 2 777-1, 52860-3, #### [facility] CLIA [id number] [address] [place] [address] [place] Creatinine and Glomerular filtration rate.predicted panel (S/P/Bld) 125 mL/min/1.73m??? Normal >=60 [facility] Comment on above: Order Comment: Sana zuñiga Type: BLOOD SPECIMEN Ordering Facility: [facility] Address: [address] [place] [address] Result Comment: Lor mated Glomerular Filtration Rate [...] actual GFR. Performed By: #### 2 777-1, 31936-6, #### [facility] CLIA [id number] [address] [place] [address] [place] Glucose [Mass/Vol] 116 mg/dL High 74-99 [facility] Comment on above: Order Comment: Sana zuñiga Type: BLOOD SPECIMEN Ordering Facility: [facility] Address: [address] [place] [address] Result Comment: The [place] [employer] (ADA) provides guidance for cutoff [...] Standards of Medical Care in Diabetes 2016, [place] [employer]. Diabetes Care. 2016.39(Suppl 1). Performed By: #### 2 777-1, 39845-6, #### [facility] CLIA [id number] [address] [place] [address] [place] Potassium [Moles/Vol] 3.9 mmol/L Normal 3.7-5.1 [facility] Comment on above: Order Comment: Speci men Type: BLOOD SPECIMEN Ordering Facility: [facility] Address: [address] [place] [address] Performed By: #### 2 777-1, 06389-2, #### [facility] CLIA [id number] [address] [place] [address] [place] Sodium [Moles/Vol] 137 mmol/L Normal 136-144 [facility] Comment on above: Order Comment: Speci men Type: BLOOD SPECIMEN Ordering Facility: [facility] Address: [address] [place] [address] Performed By: #### 2 777-1, 01826-1, #### [facility] CLIA [id number] [address] [place] [address] [place] Urea nitrogen [Mass/Vol] 17 mg/dL Normal 9-24 [facility] Comment on above: Order Comment: Speci men Type: BLOOD SPECIMEN Ordering Facility: [facility] Address: [address] [place] [address] Performed By: #### 2 777-1, 33304-6, #### [facility] CLIA [id number] [address] [place] [address] [place] CBC W Auto Differential pane l (Bld)on 10-28-2023 Basophils (Bld) [#/Vol] 10*3/uL Normal <0.11 [facility] Comment on above: Order Comment: Speci men Type: BLOOD SPECIMEN Ordering Facility: [facility] Address: [address] [place] [address] Performed By: #### 2 777-1, 79634-1, #### [facility] CLIA [id number] [address] [place] [address] [place] Basophils/100 WBC (Bld) 0.1 % Normal [facility] Comment on above: Order Comment: Speci men Type: BLOOD SPECIMEN Ordering Facility: [facility] Address: [address] [place] [address] Performed By: #### 2 777-1, 31286-1, #### [facility] CLIA [id number] [address] [place] [address] [place] Differential cell count method Nom (Bld) Auto Normal [facility] Comment on above: Order Comment: Speci men Type: BLOOD SPECIMEN Ordering Facility: [facility] Address: [address] [place] [address] Performed By: #### 2 777-1, 73560-2, #### [facility] CLIA [id number] [address] [place] [address] [place] Eosinophils (Bld) [#/Vol] 10*3/uL Normal <0.46 [facility] Comment on above: Order Comment: Speci men Type: BLOOD SPECIMEN Ordering Facility: [facility] Address: [address] [place] [address] Performed By: #### 2 777-1, , #### [facility] CLIA [id number] [address] [place] [address] [place] Eosinophils/100 WBC (Bld) 0.0 % Normal [facility] Comment on above: Order Comment: Speci men Type: BLOOD SPECIMEN Ordering Facility: [facility] Address: [address] [place] [address] Performed By: #### 2 777-1, , #### [facility] CLIA [id number] [address] [place] [address] [place] Erythrocyte distribution width (RBC) [Ratio] 14.4 % Normal 11.5-15.0 [facility] Comment on above: Order Comment: Speci men Type: BLOOD SPECIMEN Ordering Facility: [facility] Address: [address] [place] [address] Performed By: #### 2 777-1, 84052-8, #### [facility] CLIA [id number] [address] [place] [address] [place] Hematocrit (Bld) [Volume fraction] 38.3 % Low 39.0-51.0 [facility] Comment on above: Order Comment: Speci men Type: BLOOD SPECIMEN Ordering Facility: [facility] Address: [address] [place] [address] Performed By: #### 2 777-1, 25423-5, #### [facility] CLIA [id number] [address] [place] [address] [place] Hemoglobin (Bld) [Mass/Vol] 12.0 g/dL Low 13.0-17.0 [facility] Comment on above: Order Comment: Speci men Type: BLOOD SPECIMEN Ordering Facility: [facility] Address: [address] [place] [address] Performed By: #### 2 777-1, , #### [facility] CLIA [id number] [address] [place] [address] [place] Immature granulocytes (Bld) [#/Vol] 0.08 10*3/uL Normal <0.10 [facility] Comment on above: Order Comment: Speci men Type: BLOOD SPECIMEN Ordering Facility: [facility] Address: [address] [place] [address] Performed By: #### 2 777-1, 00691-0, #### [facility] CLIA [id number] [address] [place] [address] [place] Immature granulocytes/100 WBC (Bld) 0.6 % Normal [facility] Comment on above: Order Comment: Speci men Type: BLOOD SPECIMEN Ordering Facility: [facility] Address: [address] [place] [address] Performed By: #### 2 777-1, , #### [facility] CLIA [id number] [address] [place] [address] [place] Lymphocytes (Bld) [#/Vol] 1.19 10*3/uL Normal 1.00-4.00 [facility] Comment on above: Order Comment: Speci men Type: BLOOD SPECIMEN Ordering Facility: [facility] Address: [address] [place] [address] Performed By: #### 2 777-1, , #### [facility] CLIA [id number] [address] [place] [address] [place] Lymphocytes/100 WBC (Bld) 8.2 % Normal [facility] Comment on above: Order Comment: Speci men Type: BLOOD SPECIMEN Ordering Facility: [facility] Address: [address] [place] [address] Performed By: #### 2 777-1, , #### [facility] CLIA [id number] [address] [place] [address] [place] MCH (RBC) [Entitic mass] 26.5 pg Normal 26.0-34.0 [facility] Comment on above: Order Comment: Speci men Type: BLOOD SPECIMEN Ordering Facility: [facility] Address: [address] [place] [address] Performed By: #### 2 777-1, , #### [facility] CLIA [id number] [address] [place] [address] [place] MCHC (RBC) [Mass/Vol] 31.3 g/dL Normal 30.5-36.0 [facility] Comment on above: Order Comment: Speci men Type: BLOOD SPECIMEN Ordering Facility: [facility] Address: [address] [place] [address] Performed By: #### 2 777-1, 56625-9, #### [facility] CLIA [id number] [address] [place] [address] [place] MCV (RBC) [Entitic vol] 84.5 fL Normal 80.0-100.0 [facility] Comment on above: Order Comment: Speci men Type: BLOOD SPECIMEN Ordering Facility: [facility] Address: [address] [place] [address] Performed By: #### 2 777-1, 95860-3, #### [facility] CLIA [id number] [address] [place] [address] [place] Monocytes (Bld) [#/Vol] 1.48 10*3/uL High <0.87 [facility] Comment on above: Order Comment: Speci men Type: BLOOD SPECIMEN Ordering Facility: [facility] Address: [address] [place] [address] Performed By: #### 2 777-1, 73681-0, #### [facility] CLIA [id number] [address] [place] [address] [place] Monocytes/100 WBC (Bld) 10.2 % Normal [facility] Comment on above: Order Comment: Speci men Type: BLOOD SPECIMEN Ordering Facility: [facility] Address: [address] [place] [address] Performed By: #### 2 777-1, 47968-3, #### [facility] CLIA [id number] [address] [place] [address] [place] Neutrophils (Bld) [#/Vol] 11.69 10*3/uL High 1.45-7.50 [facility] Comment on above: Order Comment: Speci men Type: BLOOD SPECIMEN Ordering Facility: [facility] Address: [address] [place] [address] Performed By: #### 2 777-1, 06911-2, #### [facility] CLIA [id number] [address] [place] [address] [place] Neutrophils/100 WBC (Bld) 80.9 % Normal [facility] Comment on above: Order Comment: Speci men Type: BLOOD SPECIMEN Ordering Facility: [facility] Address: [address] [place] [address] Performed By: #### 2 777-1, 20848-3, #### [facility] CLIA [id number] [address] [place] [address] [place] Nucleated RBC (Bld) [#/Vol] 10*3/uL Normal <0.01 [facility] Comment on above: Order Comment: Speci men Type: BLOOD SPECIMEN Ordering Facility: [facility] Address: [address] [place] [address] Performed By: #### 2 777-1, 12080-1, #### [facility] CLIA [id number] [address] [place] [address] [place] Nucleated RBC/100 WBC (Bld) [Ratio] 0.0 /100 WBC Normal [facility] Comment on above: Order Comment: Speci men Type: BLOOD SPECIMEN Ordering Facility: [facility] Address: [address] [place] [address] Performed By: #### 2 777-1, 68738-4, #### [facility] CLIA [id number] [address] [place] [address] [place] Platelet mean volume (Bld) [Entitic vol] 9.3 fL Normal 9.0-12.7 [facility] Comment on above: Order Comment: Speci men Type: BLOOD SPECIMEN Ordering Facility: [facility] Address: [address] [place] [address] Performed By: #### 2 777-1, 62647-5, #### [facility] CLIA [id number] [address] [place] [address] [place] Platelets (Bld) [#/Vol] 180 10*3/uL Normal 150-400 [facility] Comment on above: Order Comment: Speci men Type: BLOOD SPECIMEN Ordering Facility: [facility] Address: [address] [place] [address] Performed By: #### 2 777-1, 15112-4, 24793-1 #### [facility] CLIA [id number] [address] [place] [address] [place] RBC (Bld) [#/Vol] 4.53 10*6/uL Normal 4.20-6.00 [facility] Comment on above: Order Comment: Akbari yogesh Type: BLOOD SPECIMEN Ordering Facility: [facility] Address: [address] [place] [address] Performed By: #### 2 777-1, 58710-7, 70551-1 #### [facility] CLIA [id number] [address] [place] [address] [place] WBC (Bld) [#/Vol] 14.46 10*3/uL High 3.70-11.00 [facility] Comment on above: Order Comment: Sana zuñiga Type: BLOOD SPECIMEN Ordering Facility: [facility] Address: [address] [place] [address] Performed By: #### 2 777-1, 39578-2, 09544-4 #### [facility] CLIA [id number] [address] [place] [address] [place] HISTORY PHYSICALon 4 HISTORY PHYSICAL HNO ID: [id number] Author: SAMUEL ROBIN MD Service: General Surgery [...] No a (more content not included)... Normal [facility] Magnesium SerPl-mCncon 10-27 Magnesium [Mass/Vol] 1.8 mg/dL Normal 1.7-2.3 [facility] Comment on above: Order Comment: Sana zuñiga Type: BLOOD SPECIMEN Ordering Facility: [facility] Address: [address] [place] [address] Performed By: #### 2 777-1, 08376-4, 63484-1 #### [facility] CLIA [id number] [address] [place] [address] [place] PT panel Coag (PPP)on 2023 INR Coag (PPP) [Relative time] 1.2 {INR} Normal 0.9-1.3 [facility] Comment on above: Order Comment: Sana zuñiga Type: BLOOD SPECIMEN Ordering Facility: [facility] Address: [address] [place] [address] Result Comment: Winnie min K Antagonist (VKA) Therapeutic Range: INR 2 to 3 (Target INR of 2.5) Note: For patients treated with VKA drugs, such as warfarin, the [place] [employer] 2012 Guideline recommends [...] GH, et al. Chest 2012, 141:7S-47S Jonny RA, et al. [facility] 2017, 70: 252-289 Performed By: #### 2 777-1, 23444-3, #### [facility] CLIA [id number] [address] [place] [address] [place] PT Coag (PPP) [Time] 12.3 s Normal 9.7-13.0 [facility] Comment on above: Order Comment: Speci men Type: BLOOD SPECIMEN Ordering Facility: [facility] Address: [address] [place] [address] Performed By: #### 2 777-1, 94160-3, #### [facility] CLIA [id number] [address] [place] [address] [place] Phosphate SerPl-mCncon 10-27 Phosphate [Mass/Vol] 3.2 mg/dL Normal 2.7-4.8 [facility] Comment on above: Order Comment: Sana zuñiga Type: BLOOD SPECIMEN Ordering Facility: [facility] Address: [address] [place] [address] Performed By: #### 2 777-1, 14436-1, #### [facility] CLIA [id number] [address] [place] [address] [place] SEPSIS LACTATEon 10-28-2023 Lactate [Moles/Vol] 2.0 mmol/L Normal <=2.0 [facility] Comment on above: Order Comment: Akbari men Type: BLOOD SPECIMENOrdering Facility: [facility] Address: [address] [place] [address] Performed By: #### S LACT ####[facility] [id number] [place] [address] [place] TYPE + SCREENon 10-28-2023 ABO A Normal [facility] Comment on above: Order Comment: Speci men Type: BLOOD SPECIMEN Ordering Facility: [facility] Address: [address] [place] [address] Performed By: #### 2 4321-2, , 2776- #### [facility] CLIA [id number] [address] [place] [address] [place] HISTORICAL AB SCR STATUS Negative Normal [facility] Comment on above: Order Comment: Speci men Type: BLOOD SPECIMEN Ordering Facility: [facility] Address: [address] [place] [address] Performed By: #### 2 4321-2, , 2776-08 #### [facility] CLIA [id number] [address] [place] [address] [place] Rh Nom (Bld) Positive Normal [facility] Comment on above: Order Comment: Speci men Type: BLOOD SPECIMEN Ordering Facility: [facility] Address: [address] [place] [address] Performed By: #### 2 4321-2, , 2776-08 #### [facility] CLIA [id number] [address] [place] [address] [place] TYPE AND SCREEN EXPIRATION 10/31/2023 23:59 Normal [facility] Comment on above: Order Comment: Speci men Type: BLOOD SPECIMEN Ordering Facility: [facility] Address: [address] [place] [address] Performed By: #### 2 4321-2, , 2776- #### [facility] CLIA [id number] [address] [place] [address] [place] XR ABDOMEN 1V [...] right lower quadrant on the outside CT). [employer] Consultant: SUSI Transcribe Date/Time: Oct 28 2023 5:30P Dictated by : WALTER BURGER MD This examination was interpreted and the report reviewed and electronically signed by: WALTER BURGER MD on Oct 28 2023 5:47PM EST [id number] Normal [facility] Anesthesia Preprocedure Eval uationon 07-16-2023 [employer] Operator Authentication Interface Message Text ASA: 2 No [...] were discussed with the patient and/or legal dermatology sales representative. The risks, benefits and alternatives were reviewed. Questions regarding anesthesia were answered. Patient and/or legal dermatology sales representative knows such anesthetics and procedures may be performed by Resident physicians, Certified Anesthesiologist Assistants, or Certified Nurse Anesthetists under the supervision of a physician. The patient /or the patient's legal dermatology sales representative agree with the plan for [...] with his caregiver who understood. Normal [facility] BASIC METABOLIC PANELon 11-2 -2022 Anion gap [Moles/Vol] 15 mmol/L Normal 10-20 [facility] Comment on above: Performed By: #### C H8 ####[facility] [address] [place], [address] Calcium [Mass/Vol] 9.6 mg/dL Normal 8.6-10.3 [facility] Comment on above: Result Comment: Note updated reference ranges. Performed By: #### C H8 ####[facility] [address] [place], [address] Chloride [Moles/Vol] 104 mmol/L Normal 98-107 [facility] Comment on above: Result Comment: Note updated reference ranges. Performed By: #### C H8 ####[facility] [address] [place], [address] CO2 [Moles/Vol] 25 mmol/L Normal 21-31 [facility] Comment on above: Result Comment: Note updated reference ranges. Performed By: #### C H8 ####[facility] [address] [place], [address] Creatinine [Mass/Vol] 0.94 mg/dL Normal 0.70-1.30 [facility] Comment on above: Result Comment: Note updated reference ranges. Performed By: #### C H8 ####[facility] [address] [place], [address] ESTIMATED GFR (CKD-EPI) 112 mL/min/1.73sqm Normal >=60 [...] Inclusion of Race in Diagnosing Kidney Disease. [place] Journal of Kidney Diseases 202;79(2):268-88.e1. 2. N Engl J Med 1 Vol. 385 Issue 19 Pages 6148-1820 Performed By: #### C H8 ####[facility] [address] [place], [address] Glucose [Mass/Vol] 84 mg/dL Normal 74-109 [facility] Comment on above: Performed By: #### C H8 ####[facility] [address] [place], [address] Potassium [Moles/Vol] 4.9 mmol/L Normal 3.5-5.0 [facility] Comment on above: Result Comment: Note updated reference ranges. Note updated reference ranges. Performed By: #### C H8 ####[facility] [address] [place], [address] Sodium [Moles/Vol] 139 mmol/L Normal 136-145 [facility] Comment on above: Result Comment: Note updated reference ranges. Performed By: #### C H8 ####[facility] [address] [place], [address] Urea nitrogen [Mass/Vol] 21 mg/dL Normal 7-25 [facility] Comment on above: Result Comment: Note updated reference ranges. Performed By: #### C H8 ####[facility] [address] [place], [address] Basic metabolic 2000 panelOr dered By: Vandana Ace on 07-16-2023 Anion gap [Moles/Vol] 15 mmol/L 10 - 20 [facility] Calcium [Mass/Vol] 9.6 mg/dL 8.6 - 10. [...] Reference: 1. Beto C, Yajaira M, Trey DC, et al.. A Unifying Approach for GFR Estimation: Recommendations of the NKF-ASN Task Force on Reassessing the Inclusion of Race in Diagnosing Kidney Disease. [place] Journal of Kidney Diseases 202;79(2):268-88.e1. 2. N Engl J Med 1 Vol. 385 Issue 19 Pages 5008-5509 Glucose [Mass/Vol] 84 mg/dL 74 - 109 [...] ce ranges. [facility] Brief Operative Noteon 07-16 [employer] Operator Authentication Interface Message Text Cancelled Case was cancelled. Pt has very low heart rate, that compromises GA/ per anesthesia team. Normal [facility] CBC WITH DIFFERENTIALon 06-21 Basophils (Bld) [#/Vol] 0.10 10*3/uL Normal 0.00-0.20 [facility] Comment on above: Performed By: #### C BCDSAT ####[facility] [address] [place] [address], [address] Basophils/100 WBC (Bld) 0.6 % Normal <=1.9 [facility] Comment on above: Performed By: #### C BCDSAT ####[facility] [address] [place] [address], [address] Eosinophils (Bld) [#/Vol] 0.30 10*3/uL Normal 0.00-0.70 [facility] Comment on above: Performed By: #### C BCDSAT ####[facility] [address] [place] [address], [address] Eosinophils/100 WBC (Bld) 3.1 % Normal 0.1-4.0 [facility] Comment on above: Performed By: #### C BCDSAT ####[facility] [address] [place] [address], [address] Erythrocyte distribution width (RBC) [Ratio] 14.2 % Normal 11.5-14.5 [facility] Comment on above: Performed By: #### C BCDSAT ####[facility] [address] [place] [address], [address] Hematocrit (Bld) [Volume fraction] 38.4 % Low 41.0-53.0 [facility] Comment on above: Performed By: #### C BCDSAT ####[facility] [address] [place] [address], [address] Hemoglobin (Bld) [Mass/Vol] 12.6 g/dL Low 13.9-16.3 [facility] Comment on above: Performed By: #### C BCDSAT ####[facility] [address] [place] [address], [address] Lymphocytes (Bld) [#/Vol] 3.20 10*3/uL Normal 1.00-4.80 [facility] Comment on above: Performed By: #### C BCDSAT ####[facility] [address] [place] [address], [address] Lymphocytes/100 WBC (Bld) 36.8 % Normal 24.0-44.0 [facility] Comment on above: Performed By: #### C BCDSAT ####[facility] [address] [place] [address], [address] MCH (RBC) [Entitic mass] 27.4 pg Normal 26.0-34.0 [facility] Comment on above: Performed By: #### C BCDSAT ####[facility] [address] [place] [address], [address] MCHC (RBC) [Mass/Vol] 32.8 g/dL Normal 32.0-35.9 [facility] Comment on above: Performed By: #### C BCDSAT ####[facility] [address] [place] [address], [address] MCV (RBC) [Entitic vol] 84 fL Normal 80-100 [facility] Comment on above: Performed By: #### C BCDSAT ####[facility] [address] [place] [address], [address] Monocytes (Bld) [#/Vol] 0.80 10*3/uL Normal 0.20-1.00 [facility] Comment on above: Performed By: #### C BCDSAT ####[facility] [address] [place] [address], [address] Monocytes/100 WBC (Bld) 8.9 % Normal 2.0-11.0 [facility] Comment on above: Performed By: #### C BCDSAT ####[facility] [address] [place] [address], [address] Neutrophils (Bld) [#/Vol] 4.40 10*3/uL Normal 1.50-8.00 [facility] Comment on above: Performed By: #### C BCDSAT ####[facility] [address] [place] [address], [address] Neutrophils/100 WBC (Bld) 50.6 % Normal 31.0-76.0 [facility] Comment on above: Performed By: #### C BCDSAT ####[facility] [address] [place] [address], [address] Nucleated RBC (Bld) [#/Vol] 0.1 10*3/uL Normal [facility] Comment on above: Performed By: #### C BCDSAT ####[facility] [address] [place] [address], [address] Nucleated RBC (Bld) [#/Vol] 0.01 10*3/uL Normal [facility] Comment on above: Performed By: #### C BCDSAT ####[facility] [address] [place] [address], [address] Platelet mean volume (Bld) [Entitic vol] 9.1 fL Normal 7.5-11.2 [facility] Comment on above: Performed By: #### C BCDSAT ####[facility] [address] [place] [address], [address] PLT Normal [facility] Comment on above: Result Comment: Plat elet cannot be quantified due to the presence of platelet clumps. Platelet estimate appears normal. Performed By: #### C BCDSAT ####[facility] [address] [place] [address], [address] RBC (Bld) [#/Vol] 4.59 10*6/uL Normal 4.50-5.90 [facility] Comment on above: Performed By: #### C BCDSAT ####[facility] [address] [place] [address], [address] WBC (Bld) [#/Vol] 8.6 10*3/uL Normal 4.5-11.5 [facility] Comment on above: Performed By: #### C BCDSAT ####[facility] [address] [place] [address], [address] Basophils (Bld) [#/Vol] 0.10 10*3/uL 0.00 - [...] - 11.2 fL [facility] Platelets (Bld) [#/Vol] [facility] Comment on above: Platelet cannot be q uantified due to the presence of platelet clumps. Platelet estimate appears normal. RBC (Bld) [#/Vol] 4.59 10*6/uL [facility] WBC (Bld) [#/Vol] 8.6 10*3/uL 4.5 - 11.5 K/uL [facility] CT HEAD W/O CONTRASTon 07-16 CT [...] left caudate nucleus. MACRO: None Normal [facility] CT Head WO contrastOrdered B y: David Kay on 07-16-2023 CT DLP 1126.71 (mGy.cm) [facility] Work Phone: CT Series HEAD W/O,HEAD W/O [facility] Work Phone: CTDI VOL 0.34 (mGy),47.31 (mGy) [facility] Work Phone: PHANTOM TYPE IEC Head Dosimetry Phantom,IEC Head Dosimetry Phantom [facility] Work Phone: [facility] Work Phone: CT Head WO contraston 2022 [...] patient, likes to hit head ORDERING PROVIDER: YOBNAY SMITH TECHNOLOGISTS NOTE: COMPARISON: None TECHNIQUE: Thin [...] in the left caudate nucleus. MACRO: None [facility] Radiology Study observation (narrative) [facility] ED Noteson 07-16-2023 Shotweld Operator Authentication Interface Message Text Permission treat given from Cate legal guardian Normal [facility] ED Provider Lawrence 11-27-20 23 Shotweld Operator Authentication Interface Message Text EMERGENCY DEPARTMENT - VISIT NOTE --------- HISTORY OF PRESENT ILLNESS ----- Chief Complaint Patient presents with bradycardia Low HR (33) HIPAA: Verbal permission granted from patient to discuss case, including protected health information, in front of family / friends in room at the time of the evaluation. Labor/Excavator: not needed - patient preferred language is Ghanaian. History from Independent Historian: Caregiver reports Pleasant [...] decision-mariusz (more content not included)... Normal [facility] MAGNESIUMon 07-16-2023 Magnesium [Mass/Vol] 2.1 mg/dL Normal 1.6-2.8 [facility] Comment on above: Performed By: #### M G #### [facility] [address] [place], [address] Interpretation and review of laboratory results Normal [facility] Magnesium [Mass/Vol] 2.1 mg/dL 1.6 - 2 .8 mg/dL [facility] OP Noteon 07-16-2023 Shotweld Operator Authentication Interface Message Text Cancelled Case was cancelled. Pt has very low heart rate, that compromises GA/ per anesthesia team. Normal [facility] Progress Noteson 07-16-2023 Shotweld Operator Authentication Interface Message Text ----- Sunday, July 16, 2023 at 1:56:53 PM ----- ----- Provider: Resident Shorty -- Clinic: [facility] ----- Patient was scheduled for OR today Patient had Bradycardia and hypotension for unknown reasons. Anaesthesia asked to cancel the OR for this patient today. NV. OR ----- Signed on Monday, July 17, 2023 at 8:18:55 AM ----- ----- Provider: Maya Alicea DDS -- Clinic: [facility] ----- Normal [facility] Shotweld Operator Authentication Interface Message Text 0800: pt's HR in the 30s. Per caregiver his behavior is baseline. Spoke with nurse at pt's residence and she stated baseline HR is in the 70s. Dr Olmstead aware and at bedside. EKG performed. Pt transferred to ED for further evaluation. Normal [facility] Lithiumon 07-06-2023 [place] [Moles/Vol] 0.9 mmol/L Invalid Interpretation Code 0.5-1.2 [facility] Comment on above: Result Comment: A co ncentration of 0.5-0.8 mmol/L is advised for long-term use; concentrations of up to 1.2 mmol/L may be necessary during acute treatment. Detection Limit = 0.1 <0.1 indicates None Detected Performed at: [facility] [id number] PhD Agata Narayan Performed By: #### 2 232915, 3468580, 6735594, 9798293, 088085411, 0723098, 1149791, 62696523, 9283938 ####[facility] [address] [place] [address] CBC w/Indiceson 07-04-2023 Erythrocyte distribution width (RBC) [Ratio] 13.8 % Normal 10.9-14.2 [facility] Comment on above: Performed By: #### 2 485911, 4928420, 1364124, 5642484, 594040249, 6074973, 2029840, 80811186, 1975745 #### [facility] [address] [place] [address] Hematocrit (Bld) [Volume fraction] 38.1 % Normal 37.7-49.0 [facility] Comment on above: Performed By: #### 2 905167, 1904298, 6609497, 3197294, 193092412, 8184513, 4674600, 05140502, 4109327 #### [facility] [address] [place] [address] Hemoglobin (Bld) [Mass/Vol] 12.7 g/dL Low 13.5-17.5 [facility] Comment on above: Performed By: #### 2 991477, 6932994, 6066858, 2996154, 223349572, 0039065, 7966503, 99682676, 5752638 #### [facility] [address] [place] [address] MCH (RBC) [Entitic mass] 27.6 pg Normal 27.0-34.0 [facility] Comment on above: Performed By: #### 2 176891, 1328389, 1500109, 2148393, 319533931, 6290208, 4961141, 96888111, 9624224 #### [facility] [address] [place] [address] MCHC (RBC) [Mass/Vol] 33.3 g/dL Normal 31.4-36.0 [facility] Comment on above: Performed By: #### 2 808342, 0048579, 4726336, 1524444, 904460989, 0297137, 7470986, 72105666, 5100994 #### [facility] [address] [place] [address] MCV (RBC) [Entitic vol] 83.0 fL Normal 80.0-100.0 [facility] Comment on above: Performed By: #### 2 796014, 8835062, 3717663, 6438301, 292579705, 2588975, 1090653, 30333239, 0251961 #### [facility] [address] [place] [address] Platelet mean volume (Bld) [Entitic vol] 8.5 fL Normal 6.4-10.8 [facility] Comment on above: Performed By: #### 2 328549, 4614110, 7464395, 8542124, 722620761, 3109393, 1319703, 09537776, 2239407 #### [facility] [address] [place] [address] Platelets (Bld) [#/Vol] 175.0 E9/L Normal 150.0-500.0 [facility] Comment on above: Performed By: #### 2 516497, 1270428, 3203183, 9516199, 014344223, 4097494, 2803655, 88143259, 4851842 #### [facility] [address] [place] [address] RBC (Bld) [#/Vol] 4.6 E12/L Normal 4.3-5.9 [facility] Comment on above: Performed By: #### 2 625377, 1766602, 9016544, 8535579, 927321438, 4360939, 5915067, 85514455, 2215499 #### [facility] [address] [place] [address] WBC corrected for nucl RBC Auto (Bld) [#/Vol] 5.9 E9/L Normal 4.0-11.0 [facility] Comment on above: Performed By: #### 2 675889, 5266182, 9343831, 0143015, 038947395, 6699438, 1215119, 16725719, 4170578 #### [facility] [address] [place] [address] CHEMISTRYOrdered By: SYSTEM SYSTEM on 07-04-2023 25-hydroxyvitamin D3 [Mass/Vol] 33.7 ng/mL Normal 30.0 - 100.0 ng/mL [facility] Remisol Comment on above: Interpretive Data: Vitamin D deficiency has been defined as a level of serum 25-OH vitamin D less than 20 ng/mL (1,2) by the [place] of Medicine and an Endocrine Society practice guideline. The Endocrine Society further defined vitamin D insufficiency as a level between 21 and 29 ng/mL (2). 1. IOM ([place] of Medicine). 2010. Dietary reference intakes for [...] 07-04-2023 Albumin [Mass/Vol] 3.7 g/dL Normal 3.3-5.0 [facility] Comment on above: Performed By: #### 2 436296, 7033129, 7962451, 7383518, 394671115, 1949033, 3738937, 39291900, 4395436 #### [facility] [address] [place] [address] Albumin/Globulin (S) [Mass conc ratio] 1.0 Low 1.1-2.2 [facility] Comment on above: Performed By: #### 2 925624, 2206782, 3326234, 5844297, 890926876, 4887655, 2699495, 89600694, 4485944 #### [facility] [address] [place] [address] ALP [Catalytic activity/Vol] 37 Int._Unit/L Normal 21-98 [facility] Comment on above: Performed By: #### 2 248399, 0417689, 4350913, 7012261, 128845053, 1805214, 2889059, 04186475, 5986644 #### [facility] [address] [place] [address] ALT No additional P-5'-P [Catalytic activity/Vol] 15 Int._Unit/L Normal 6-46 [facility] Comment on above: Performed By: #### 2 844727, 9538416, 8694833, 4725147, 284656706, 0157660, 2190797, 55750906, 9445982 #### [facility] [address] [place] [address] Anion gap [Moles/Vol] 12 mmol/L Normal 6-16 [facility] Comment on above: Performed By: #### 2 061174, 7307703, 7840622, 0784414, 664362549, 0438047, 0866268, 94398334, 8109337 #### [facility] [address] [place] [address] AST [Catalytic activity/Vol] 22 Int._Unit/L Normal 5-43 [facility] Comment on above: Performed By: #### 2 992927, 3775589, 5582561, 8503106, 250201047, 2975337, 5328205, 48864605, 1702211 #### [facility] [address] [place] [address] Bilirubin [Mass/Vol] 0.1 mg/dL Normal 0.0-1.1 [facility] Comment on above: Performed By: #### 2 976733, 9249465, 8710147, 6072946, 851168521, 8249823, 3364332, 11730451, 9376843 #### [facility] [address] [place] [address] Calcium [Mass/Vol] 9.7 mg/dL Normal 8.9-11.1 [facility] Comment on above: Performed By: #### 2 364788, 9110638, 6872978, 6487402, 789005446, 2347255, 9532461, 60793528, 4853892 #### [facility] [address] [place] [address] Chloride [Moles/Vol] 108 mmol/L Normal 101-111 [facility] Comment on above: Performed By: #### 2 524038, 6464828, 6409864, 1577465, 083266984, 8409697, 0332425, 50734830, 7938678 #### [facility] [address] [place] [address] CO2 [Moles/Vol] 23 mmol/L Normal 21-31 [facility] Comment on above: Performed By: #### 2 846461, 7049713, 6157024, 5581393, 510674070, 3467482, 3861331, 59955163, 4916936 #### [facility] [address] [place] [address] Creatinine [Mass/Vol] 0.9 mg/dL Normal 0.5-1.3 [facility] Comment on above: Performed By: #### 2 475111, 6914362, 4465034, 9068590, 547166754, 4243292, 9721663, 79560197, 3983044 #### [facility] [address] [place] [address] Globulin (S) [Mass/Vol] 3.8 g/dL Normal 1.4-4.0 [facility] Comment on above: Performed By: #### 2 169933, 9035894, 6813662, 6838585, 129653497, 3893857, 3772512, 79207772, 7898809 #### [facility] [address] [place] [address] Glucose [Mass/Vol] 86 mg/dL Normal 55-199 [facility] Comment on above: Result Comment: If t his glucose result represents a fasting glucose, interpretation should refer to the following reference range: 55-99 mg/dL Performed By: #### 2 846132, 0962982, 6208424, 4455470, 786587530, 2500391, 8629560, 14080546, 6342624 #### [facility] [address] [place] [address] Potassium [Moles/Vol] 4.3 mmol/L Normal 3.5-5.3 [facility] Comment on above: Performed By: #### 2 555423, 2087778, 6523788, 2165015, 242226513, 8696596, 6137188, 04626559, 6391796 #### [facility] [address] [place] [address] Protein [Mass/Vol] 7.5 g/dL Normal 6.0-7.8 [facility] Comment on above: Performed By: #### 2 094811, 6626676, 8828199, 9727562, 742850361, 6218877, 8862465, 89468418, 7714279 #### [facility] [address] [place] [address] Sodium [Moles/Vol] 139 mmol/L Normal 135-145 [facility] Comment on above: Performed By: #### 2 517768, 3528518, 1918906, 1421041, 911217703, 5312018, 4999225, 38921692, 7256165 #### [facility] [address] [place] [address] Urea nitrogen [Mass/Vol] 20 mg/dL Normal 5-21 [facility] Comment on above: Performed By: #### 2 578202, 2210956, 6682935, 5129546, 541678680, 3693101, 5656252, 15767409, 5743066 #### [facility] [address] [place] [address] Urea nitrogen/Creatinine [Mass ratio] 22 No Units High 10-20 [facility] Comment on above: Performed By: #### 2 484287, 9046216, 2637090, 1989063, 724310856, 6034340, 3343609, 61312854, 2371711 #### [facility] [address] [place] [address] Free T4on 07-04-2023 Free T4 [Mass/Vol] 0.70 ng/dL Normal 0.58-1.64 [facility] Comment on above: Performed By: #### 2 383501, 4473393, 5787559, 1914218, 709865422, 8843234, 7954381, 65233448, 3121408 #### [facility] [address] [place] [address] HEMATOLOGYOrdered By: Jersey Arnett on 07-04-2023 Erythrocyte distribution width (RBC) [Ratio] 13.8 % Normal 10.9 - 14.2 % [facility] Hematocrit (Bld) [Volume fraction] 38.1 % Normal 37.7 - 49.0 % [facility] Hemoglobin (Bld) [Mass/Vol] 12.7 g/dL Low 13.5 - 17.5 gm/dL [facility] MCH (RBC) [Entitic mass] 27.6 pg Normal 27.0 - 34.0 pg [facility] MCHC (RBC) [Mass/Vol] 33.3 g/dL Normal 31.4 - 36.0 gm/dL [facility] MCV (RBC) [Entitic vol] 83.0 fL Normal 80.0 - 100.0 fL [facility] Platelet mean volume (Bld) [Entitic vol] 8.5 fL Normal 6.4 - 10.8 fL [facility] Platelets (Bld) [#/Vol] 175.0 E9/L Normal 150.0 - 500.0 E9/L [facility] RBC (Bld) [#/Vol] 4.6 E12/L Normal 4.3 - 5.9 E12/L [facility] WBC corrected for nucl RBC Auto (Bld) [#/Vol] 5.9 E9/L Normal 4.0 - 11.0 E9/L [facility] Lipid Panelon 07-04-2023 Cholesterol [Mass/Vol] 145 mg/dL Normal 120-200 [facility] Comment on above: Performed By: #### 2 238895, 0976105, 3931994, 7090065, 847681480, 5398470, 5310224, 39663093, 8104581 #### [facility] [address] [place] [address] Cholesterol in HDL [Mass/Vol] 40 mg/dL Invalid Interpretation Code [facility] Comment on above: Result Comment: HDL > or equal to 60 mg/dL: Low cardiovascular risk HDL < 40 mg/dL : High cardiovascular risk Performed By: #### 2 833453, 7093790, 5149387, 4156076, 170313417, 5501977, 5141439, 16211589, 6302842 #### [facility] [address] [place] [address] Cholesterol in LDL [Mass/Vol] 86 mg/dL Normal <=129 [facility] Comment on above: Performed By: #### 2 530745, 0574339, 2175317, 6833314, 640013830, 1470248, 1125749, 33609388, 8292603 #### [facility] [address] [place] [address] Cholesterol in VLDL [Mass/Vol] 27 mg/dL Normal 7-40 [facility] Comment on above: Performed By: #### 2 232234, 2798052, 7675066, 1940377, 588292089, 7367327, 8199752, 67508000, 5129107 #### [facility] [address] [place] [address] Triglyceride [Mass/Vol] 133 mg/dL Normal <=149 [facility] Comment on above: Performed By: #### 2 834738, 9769857, 6705240, 3217113, 645078879, 3819540, 2515651, 01471638, 5863068 #### [facility] [address] [place] [address] Physician Orderon 07-04-2023 Physician Order [id number]# 1.00TIFF Normal [facility] TSHon 07-04-2023 TSH Qn 2.75 m[IU]/L Normal 0.34-5.60 [facility] Comment on above: Performed By: #### 2 425494, 3493273, 6870403, 0619043, 375041616, 8012087, 3358678, 62586270, 2243116 #### [facility] [address] [place] [address] Valproic Acidon 07-04-2023 Valproate [Moles/Vol] 79 microgram/mL Normal 50-99 [facility] Comment on above: Performed By: #### 2 659338, 8598410, 6950153, 3677526, 658729636, 8802183, 3545259, 95911127, 1470349 #### [facility] [address] [place] [address] Vitamin D 25 Hydroxyon 07-04 25-hydroxyvitamin D3 [Mass/Vol] 33.7 ng/mL Normal 30.0-100.0 [facility] Comment on above: Result Comment: Vit alfredo D deficiency has been defined as a level of serum 25-OH vitamin D less than 20 ng/mL (1,2) by the [place] of Medicine and an Endocrine Society practice guideline. The Endocrine Society further defined vitamin D insufficiency as a level between 21 and 29 ng/mL (2). 1. IOM ([place] of Medicine). 2010. Dietary reference intakes for calcium and D. [place]: The National Academies Press. 2. Denia MF, Marcelino CHAIDEZ, Ann GARVEY, et al. Evaluation, treatment, and prevention of vitamin D deficiency: an Endocrine Society clinical practice guideline. JCEM. 2010; 96 (7):1911-30. Performed By: #### 2 585266, 0228190, 3971395, 1417378, 920276387, 9962713, 4020423, 21948462, 8171121 #### [facility] [address] [place] [address] eGFRon 07-04-2023 GFR/1.73 sq M.predicted among non-blacks MDRD (S/P/Bld) [Vol rate/Area] 118 mL/min/1.73 m2 Normal >=59 [facility] Comment on above: Order Comment: Order added by Discern Expert. Result Comment: Resource Teacher jenni kidney disease could be indicated at eGFR's of less than 60 mL/min/1.73m2. Kidney failure is indicated at less than 15 mL/min/1.73m2. 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 Scheduled for surgery 07/16/2023. Normal [facility] BASIC METABOLIC PANELon 11-0 Anion gap [Moles/Vol] 16 mmol/L Normal 10-20 [facility] Comment on above: Performed By: #### C H8 #### [facility] [address] [place] [address], [address] Calcium [Mass/Vol] 9.8 mg/dL Normal 8.4-10.4 [facility] Comment on above: Performed By: #### C H8 #### [facility] [address] [place] [address], Chloride [Moles/Vol] 106 mmol/L Normal 97-111 [facility] Comment on above: Performed By: #### C H8 #### [facility] [address] [place], [place], CO2 [Moles/Vol] 23 mmol/L Normal 21-30 [facility] Comment on above: Performed By: #### C H8 #### [facility] [address] [place], [place], Creatinine [Mass/Vol] 1.01 mg/dL Normal 0.80-1.30 [facility] Comment on above: Performed By: #### C H8 #### [facility] [address] [place] [address], ESTIMATED GFR (CKD-EPI) 103 mL/min/1.73sqm Normal >=60 [facility] Comment on above: Result Comment: 2020 CKD EPI Equation using Creatinine without Race Comment: Estimated glomerular filtration rate (eGFR) is calculated without a race coefficient. Values should be interpreted in the context of the patient's full clinical presentation. Reference: 1. Beto C, Yajaira M, Trey DC, et al.. A Unifying Approach for GFR Estimation: Recommendations of the NKF-ASN Task Force on Reassessing the Inclusion of Race in Diagnosing Kidney Disease. [place] Journal of Kidney Diseases 2021;79(2):268-88.e1. 2. N Engl J Med 1 Vol. 385 Issue 19 Pages 1084-5349 Performed By: #### C H8 #### [facility] [address] [place], [place], Glucose [Mass/Vol] 104 mg/dL Normal 68-110 [facility] Comment on above: Performed By: #### C H8 #### [facility] [address] [place] [address], Potassium [Moles/Vol] 4.7 mmol/L Normal 3.3-5.3 [facility] Comment on above: Performed By: #### C H8 #### [facility] [address] [place] [address], Sodium [Moles/Vol] 140 mmol/L Normal 135-148 [facility] Comment on above: Performed By: #### C H8 #### [facility] [address] [place], [place], Urea nitrogen [Mass/Vol] 22 mg/dL Normal 8-22 [facility] Comment on above: Performed By: #### C H8 #### [facility] [address] [place], [place], PSE Chartingon 06-22-2023 Shotweld Operator Authentication Interface Message Text Dental Consult The [...] Treatment Dental treatment in the OR Follow-up [facility] Family Dentistry if needed NOTE: Legal Guardian: Delbert Devine (BROTHER) [phone]. Consent taken by phone. Hiram Rodriguez DDS Normal [facility] Patient Instructionson 06-22 Shotweld Operator Authentication Interface Message Text RECOMMENDATIONS: Patient was instructed on the following: Nothing by mouth after midnight before surgery except following meds with sip of water on AM of surgery: as per anesthesia Stop aspirin 7 days before surgery Stop NSAID 5 days before surgery Stop Vitamin E 10 days prior to surgery Stop alternative/herbal medication 10 days before surgery Franc Beyer MD 335 2515 Normal [facility] Progress Noteson 06-22-2023 Shotweld Operator Authentication Interface Message Text Identification was verified by patient verbalizing his name and date of . 23 gauge used for venipuncture to the R hand. Tolerated with assistance x2. Sent blood to lab. Normal [facility] Shotweld Operator Authentication Interface Message Text Blood pressure 108/68, [...] DENTAL RESTORATIONS; Surgeon: Harpreet Mccurdy DDS; Location: [facility]; Service: [...] fever, chills, night sweats, and weight loss POND SAWYER: No h/o CVA/TIA/Seizures Respiratory: No h/o COPD, asthma dyspnea or recent URI Cardiovascular: No h/o chest pain/RI/CHF/valvular disease/HTN GI: Dyspepsia Chronic Constipation : No [...] PLAN (more content not included)... Normal [facility] Shotweld Operator Authentication Interface Message Text Patient was identified by name and date of . Alicia Alcantara Gilbert Normal [facility] XR CHEST PA+LAT 2 VIEWSon XR [...] dedicated abdominal radiograph/CT. MACRO: None Normal [facility] XR Chest PA and Lateralon EXAMINATION: [...] indicated with dedicated abdominal radiograph/CT. MACRO: None [facility] Radiology Study observation (narrative) [facility] XR Chest PA and LateralOrder ed By: Krystal Epstein on 06-22-2023 [facility] Work Phone: Progress Noteson 06-13-2023 Shotweld Operator Authentication Interface Message Text Parent/guardian(Wendy peres @ [employer]) was contacted for PSE AND OR scheduled -- confirmed information with mom, also informed mom importance of receiving PSE call -- if not received surgery will be canceled ----- Tuesday, June 13, 2023 at 11:28:09 AM ----- ----- Provider: Orville Amaya Specialist -- Clinic: [facility] ----- Normal [facility] DEPAKENE/ VALPROIC ACIDon DEPAKENE 59.3 ug/ml Normal 50.0-100.0 [facility] Comment on above: Performed By: #### V ALP #### [facility] [address] [place] [address] Dr. Nikky King DEPAKENE/ VALPROIC ACIDon DEPAKENE 43.6 ug/ml Critically low 50.0-100.0 [facility] Comment on above: Performed By: #### V ALP #### [facility] [address] [place] [address] Dr. Nikky King LITHIUMon 12-06-2022 [place] (Eskalith(R)), Serum 0.8 mmol/L Normal 0.5-1.2 [facility] Comment on above: Result Comment: A co ncentration of 0.5-0.8 mmol/L is advised for long-term use; concentrations of up to 1.2 mmol/L may be necessary during acute treatment. Detection Limit = 0.1 <0.1 indicates None Detected Performed By: #### L ITHIUM #### [facility] [address] [place] [address] Dr. Nikky King DEPAKENE/ VALPROIC ACIDon DEPAKENE 61.7 ug/ml Normal 50.0-100.0 [facility] Comment on above: Performed By: #### V ALP #### [facility] [address] [place] [address] Dr. Nikky King LITHIUMon 11-23-2022 [place] (Eskalith(R)), Serum 0.9 mmol/L Normal 0.5-1.2 [facility] Comment on above: Result Comment: A co ncentration of 0.5-0.8 mmol/L is advised for long-term use; concentrations of up to 1.2 mmol/L may be necessary during acute treatment. Detection Limit = 0.1 <0.1 indicates None Detected Performed By: #### L ITHIUM #### [facility] [address] [place] [address] Dr. Nikky King CALCIUMon 08-22-2022 Calcium [Mass/Vol] 9.6 mg/dL Normal 8.5-10.1 [facility] Comment on above: Performed By: #### C COLLIN Pollack #### [facility] [address] [address] [address] Nikky King CREATININEon 08-22-2022 Creatinine [Mass/Vol] 0.84 mg/dL Normal 0.70-1.30 [facility] Comment on above: Performed By: #### C A, CREA #### [facility] [address] [address] [address] Nikky King EGFR-AF GUATEMALAN >60 Normal >=60 [facility] Comment on above: Performed By: #### C A, CREA #### [facility] [address] [address] [address] Nikky King EGFR-NON AF GUATEMALAN >60 Normal >=60 [facility] Comment on above: Performed By: #### C A, CREA #### [facility] [address] [place] [address] Dr. Nikky King LITHIUMon 07-05-2022 [place] (Eskalith(R)), Serum 0.9 mmol/L Normal 0.5-1.2 [facility] Comment on above: Result Comment: A co ncentration of 0.5-0.8 mmol/L is advised for long-term use; concentrations of up to 1.2 mmol/L may be necessary during acute treatment. Detection Limit = 0.1 <0.1 indicates None Detected Performed By: #### L ITHIUM #### [facility] [address] [place] [address] Dr. Nikky King Vital Signs Date Time Vital Sign Value Performing Clinician Faci lity 05-21-2024 09: Body height 167.6 cm Attivio Work Phone: [facility] [employer] 05-21-2024 09: Body mass index (BMI) [Ratio] 31.96 kg/m2 Attivio Work Phone: [facility] [employer] 05-21-2024 09: Body weight 89.81 kg Cris Brandkids Work Phone: [facility] 05-21-2024 09:29-0400 Diastolic blood pressure 90 mm[Hg] Cris Walters PA Work Phone: [facility] 05-21-2024 09:29-0400 Systolic blood pressure 136 mm[Hg] Cris De Oliveirae PA Work Phone: [facility] 12-28-2023 14:30-0400 Diastolic blood pressure 89 mm[Hg] Mari Yi DMD Work Phone: [facility] 12-28-2023 14:30-0400 Heart rate 69 /min Mari Yi DMD Work Phone: [facility] 12-28-2023 14:30-0400 Respiratory rate 10 /min Mari Yi DMD Work Phone: [facility] 12-28-2023 14:30-0400 SaO2% (BldA) [Mass fraction] 100 % Mari Yi DMD Work Phone: [facility] 12-28-2023 14:30-0400 Systolic blood pressure 135 mm[Hg] Mari Yi DMD Work Phone: [facility] 12-28-2023 13:52-0400 Body temperature 97.3 [degF] Mari Yi DMD Work Phone: [facility] 12-28-2023 09:15-0400 Body height 167.6 cm Mari Yi DMD Work Phone: [facility] 12-28-2023 09:15-0400 Body mass index (BMI) [Ratio] 31.8 kg/m2 Mari Yi DMD Work Phone: [facility] 12-28-2023 09:15-0400 Body weight 89.36 kg Mari Yi DMD Work Phone: [facility] 12-19-2023 11:23-0400 Diastolic blood pressure 90 mm[Hg] Ling Markiv SASH MAKER-STOCK PARTS FABRICATOR Work Phone: [facility] 12-19-2023 11:23-0400 Systolic blood pressure 132 mm[Hg] Ling Markiv SASH MAKER-STOCK PARTS FABRICATOR Work Phone: [employer] 12-19-2023 11:03-0400 Body height 167.6 cm Ling Coffman APRNSkyGiraffe Work Phone: [employer] 12-19-2023 11:03-0400 Body mass index (BMI) [Ratio] 31.8 kg/m2 Ling Coffman APRNSkyGiraffe [facility] 12-19-2023 11:03-0400 Body temperature 97.81 [degF] Ling Coffman SASH MAKERSkyGiraffe Work Phone: [employer] 12-19-2023 11:03-0400 Body weight 89.36 kg Ling Coffman APRNSkyGiraffe Work Phone: [employer] 12-19-2023 11:03-0400 Heart rate 59 /min Ling Coffman APRNSkyGiraffe Work Phone: [facility] 12-19-2023 11:03-0400 Respiratory rate 18 /min Ling Coffman SASH MAKERSkyGiraffe Work Phone: [facility] 12-19-2023 11:03-0400 SaO2% (BldA) [Mass fraction] 97 % Ling Coffman APRNSkyGiraffe Work Phone: [facility] 12-03-2023 13:07-0400 Body height 167.6 cm Oscar Ruiz MD Work Phone: [facility] 12-03-2023 13:07-0400 Body weight 92.53 kg Oscar Ruiz MD Work Phone: [facility] 12-03-2023 13:07-0400 Diastolic blood pressure 76 mm[Hg] Oscar Ruiz MD Work Phone: [facility] 12-03-2023 13:07-0400 Heart rate 71 /min Oscar Ruiz MD Work Phone: [facility] 12-03-2023 13:07-0400 Systolic blood pressure 111 mm[Hg] Oscar Ruiz MD Work Phone: [facility] 11-28-2023 09:48-0400 Body height 167.6 cm Victoria Daniel SASH MAKER.STOCK PARTS FABRICATOR Work Phone: [facility] 11-28-2023 09:48-0400 Body temperature 97.5 [degF] Victoria Daniel SASH MAKER.STOCK PARTS FABRICATOR Work Phone: [facility] 11-28-2023 09:48-0400 Body weight 87.54 kg Victoria Daniel SASH MAKER.STOCK PARTS FABRICATOR Work Phone: [facility] 11-28-2023 09:48-0400 Diastolic blood pressure 66 mm[Hg] Victoria Daniel SASH MAKER.STOCK PARTS FABRICATOR Work Phone: [facility] 11-28-2023 09:48-0400 Heart rate 83 /min Victoria Daniel SASH MAKER.STOCK PARTS FABRICATOR Work Phone: [facility] 11-28-2023 09:48-0400 Systolic blood pressure 134 mm[Hg] Victoria Daniel SASH MAKER.STOCK PARTS FABRICATOR Work Phone: [facility] 07-16-2023 08:06-0500 Body mass index (BMI) [Ratio] 33.97 kg/m2 Kim Horton MD Work Phone: [facility] 07-16-2023 08:06-0500 Body temperature 97.5 [degF] Kim Horton MD Work Phone: [facility] 07-16-2023 08:06-0500 Body weight 90.27 kg Kim Horton MD Work Phone: [facility] 07-16-2023 08:06-0500 Diastolic blood pressure 80 mm[Hg] Kim Horton MD Work Phone: [facility] 07-16-2023 08:06-0500 Heart rate 37 /min Kim Horton MD Work Phone: [facility] 07-16-2023 08:06-0500 Respiratory rate 15 /min Kim Horton MD Work Phone: [facility] 07-16-2023 08:06-0500 SaO2% (BldA) [Mass fraction] 100 % Kim Horton MD Work Phone: [facility] 07-16-2023 08:06-0500 Systolic blood pressure 110 mm[Hg] Kim Horton MD Work Phone: [facility] Encounters Encounter Date Encounter Type Care Provider Facility Start: 08-23-2024 End: 08-23-2024 Letter encounter Aileen Cernamarylin DDS Work Phone: [facility] Start: 05-21-2024 End: 05-21-2024 Bamboo flowsheet Cris Lowe PA Work Phone: [facility] Start: 05-21-2024 End: 05-21-2024 Bamboo flowsheet Cris Lowe PA Work Phone: [facility] Start: 05-21-2024 End: 05-21-2024 Office outpatient visit 15 minutes Cris Lowe PA Work Phone: [facility] Comment on above: Alteration of awaren ess (Primary Dx) Start: 05-21-2024 End: 05-21-2024 ambulatory CRIS LOWE Not Available Start: 05-18-2024 End: 05-18-2024 Letter encounter [facility]ile[facility]ern[facility]lin DDS [facility] Start: 02-13-2024 End: 02-13-2024 Lab Drop off HERMAN CRANE [facility] Start: 02-13-2024 End: 02-13-2024 ambulatory HERMAN CRANE Facility:[facility] Start: 01-29-2024 End: 01-29-2024 ambulatory CRIS LOWE Not Available Start: 01-11-2024 Telephone encounter Cris Dinh RN Colorectal Surgery Comment on above: Cash Clerk - O ther Start: 12-28-2023 End: 12-31-2023 ambulatory MARI YI Facility:[facility] Start: 12-28-2023 End: 12-31-2023 Patient encounter procedure Mari Yi DMD Work Phone: [facility] Start: 12-28-2023 End: 12-28-2023 Subsequent hospital visit by physician Mariayanna Yi DMD Work Phone: [facility] Start: 12-25-2023 Telephone encounter Shayy Chandler RN [facility] Pre-Admission Testing Comment on above: Pre-surgical Evaluat ion (DD adult dental restorations 12/27 under [place] at [place]. PAT completed - consent request sent to main - see future encounter for results. [facility] [place] address, and 0900 arrival time/) Pre-surgical Evaluat ion (Anesthesia Attestaion for dental surgery scanned in web content & social media manager) Start: 12-20-2023 End: 12-20-2023 Orders Only Victoria Sanchez APRN.STOCK PARTS FABRICATOR Work Phone: General Surgery Comment on above: Sigmoid volvulus (HC C) (Primary Dx) Start: 12-19-2023 ambulatory UNKNOWN PROVIDER Facili ty:[facility] Start: 12-19-2023 End: 12-19-2023 Patient encounter procedure Ling Coffman SASH MAKER-STOCK PARTS FABRICATOR Work Phone: [facility] Pre-Admission Testing Comment on above: Pre-op testing (Prim marylin Dx); Body mass index (BMI) 31.0-31.9, adult Start: 12-19-2023 End: 12-19-2023 Patient encounter status Ling Coffman SASH MAKER-STOCK PARTS FABRICATOR Work Phone: [facility] Work Phone: Start: 12-11-2023 End: 12-11-2023 ambulatory EPIFANIO HUNTLEY Not Available Start: 12-03-2023 End: 12-04-2023 ambulatory Rafael Giraldo MD Work Phone: Urology Start: 12-03-2023 End: 12-03-2023 Office outpatient visit 5 minutes Oscar Ruiz MD Work Phone: Urology Comment on above: Phimosis (Primary Dx ) Start: 11-28-2023 End: 11-29-2023 ambulatory VICTORIA SANCHEZ Facility:[facility] Start: 11-28-2023 End: 11-28-2023 Patient encounter procedure Victoria Sanchez SASH MAKER.STOCK PARTS FABRICATOR Work Phone: General Surgery Comment on above: Postoperative visit (Primary Dx) Start: 11-12-2023 Telephone encounter Cris Dinh RN Colorectal Surgery Comment on above: Cash Clerk - O ther Start: 11-07-2023 End: 11-07-2023 ambulatory PHOENIX NOAHBRIA Facility:[facility] Start: 10-28-2023 Evaluation and management of inpatient PHOENIX CARDENAS Facility:[facility] Start: 10-10-2023 Admission to [facility] Coleen Dodson DDS Other Phone: [facility] Start: 07-16-2023 End: 07-16-2023 Emergency department patient visit UNKNOWN PROVIDER Facility:[facility] Start: 07-16-2023 End: 07-16-2023 ambulatory UNKNOWN PROVIDER Facility:[facility] Start: 07-16-2023 End: 07-16-2023 Emergency department patient visit Kim Horton MD Work Phone: [facility] Emergency Department Comment on above: bradycardia (Low HR (33)) Start: 07-16-2023 End: 07-16-2023 Subsequent hospital visit by physician Harpreet Mccurdy DDS Work Phone: [facility] Radiology CT Scan Comment on above: Arrived Start: 07-16-2023 End: 07-19-2023 ambulatory UNKNOWN PROVIDER Facility:[facility] Start: 07-04-2023 End: 07-04-2023 ambulatory HERMAN CRANE Facility:[facility] Start: 07-04-2023 End: 07-04-2023 Lab Drop off HERMAN CRANE [facility] Start: 06-26-2023 Telephone encounter Shanna marquez RN [facility] Pre Surgical Evaluation Comment on above: Pre-surgical Evaluat ion (Informed Consent for dental surgery & Anesthesia consent obtained) Start: 06-22-2023 End: 06-23-2023 ambulatory UNKNOWN PROVIDER Facility:[facility] Start: 06-22-2023 Encounter for other preprocedural examination UNKNOWN PROVIDER [facility] Start: 06-22-2023 End: 06-22-2023 ambulatory UNKNOWN PROVIDER Facility:[facility] Start: 06-22-2023 End: 06-22-2023 Subsequent hospital visit by physician Op Xray 2 [facility] Rad[facility] Comment on above: Pre-op exam Start: 06-22-2023 End: 06-22-2023 Patient encounter procedure Pse Anesthesia [facility] Pre Surgical Evaluation Comment on above: Pre-op evaluation (P rimary Dx) Start: 06-22-2023 End: 06-22-2023 Preprocedural examination done Pse Anesthesia [facility] Work Phone: Start: 05-25-2023 Admission to [facility] Hiram Cain Jennifer DDS Work Phone: [facility] Start: 01-17-[address] HERMAN CRANE Fac [...] other specified special examinations DR HERMAN CRANE [facility] Start: 08-22-2022 End: 08-23-[address] [...] Start: 03-29-2022 Telephone encounter To Be Assigned [facility] Physician Referral Service Comment on above: Medical Record Revie w Procedures Date Procedure Procedure Detail Performing Clinician Start: 12-19-2023 Basic metabolic pane l calcium total Ling Markiv SASH MAKER-STOCK PARTS FABRICATOR Work Phone: Start: 10-28-2023 Antibody screen PHOENIX CARDENAS Comment on above: Order Comment: Speci men Type: BLOOD SPECIMEN Ordering Facility: [facility] Address: [address] [place] [address] Performed By: #### 2 4321-2, 12054-7, 2777-1 #### [facility] CLIA [id number] [address] [place] [address] [place] Start: 07-16-2023 End: [...] DTaP,Tdap,Td Vaccine (2 - Td or Tdap) [facility] Start: 12-02-2024 End: 12-02-2024 Patient encounter procedure 12/02/2024 12:40 PM EDT [facility] [address] [place] [address] Cris Walters PA [address] [place], [place] [id number] [facility] Start: 05-21-2024 End: 05-21-2024 Patient encounter procedure 05/21/2024 9:40 AM EDT Office Visit [facility] [address] [place] [id number] Cris Walters PA [address] [place] [address] Arrived [facility] Comment on above: Arrived Start: 04-20-2024 COVID-19 Vaccine ( season) COVID-19 Vaccine ( season) [facility] Start: 04-20-2024 COVID-19 Vaccine ( season) COVID-19 Vaccine ( season) [facility] Start: 04-20-2024 Influenza vaccination Influenza Vacc ine (#1) [facility] Start: 03-11-2024 End: 03-11-2024 Patient encounter procedure 03/11/2024 9:00 AM EDT Office Visit [facility] [address] [place] [id number] Iain Lazcano MD [address] [place] [address] Cataracts Ophthalmology Comment on above: Cataracts Start: 12-28-2023 End: 12-28-2023 Admission to same day surgery center 12/28/2023 10:01 AM EDT - 12/28/2023 12:21 PM EDT Surgery [facility] [address] [place] [id number] Mari Yi, DMD [address] [place] [address] DENTAL RESTORATIONS [facility] Comment on above: DENTAL RESTORATIONS Start: 12-28-2023 End: 12-28-2023 DENTAL RESTORATIONS [facility] Start: 12-28-2023 Subsequent hospital visit by physician 12/28/2023 10:01 AM EDT Hospital Encounter [facility] [address] [place] [id number] Mari Yi, DMD [address] [place] [address] [facility] Start: 12-28-2023 End: 12-28-2023 Patient encounter procedure 12/28/2023 9:00 AM EDT Procedure Visit [facility] [address] [place] [id number] Mari Yi, DMD [address] [place] [address] [facility] Start: 08-20-2023 Behavioral Health Screening Behavioral Health Screening [facility] Start: 08-20-2023 Depression Assessment Depression Ass essment [facility] Start: 07-16-2023 End: 07-16-2023 DENTAL RESTORATIONS DENTAL RESTORATIONS Routine scheduled Caries 07/16/2023 1:45 PM EST [facility] Start: 07-16-2023 End: 07-16-2023 Admission to same day surgery center 07/16/2023 9:27 AM EST - 07/16/2023 11:24 AM EST Surgery [facility] [address] [place] [id number] Harpreet Mccurdy, DDS [address] [place] [address] DENTAL RESTORATIONS [facility] Comment on above: DENTAL RESTORATIONS Start: 07-16-2023 End: 07-16-2023 DENTAL RESTORATIONS DENTAL RESTORATIONS Routine scheduled Caries 07/16/2023 9:27 AM EST [facility] Start: 07-16-2023 Subsequent hospital visit by physician [facility] Start: 06-22-2023 End: 06-22-2023 Patient encounter procedure 06/22/2023 2:30 PM EDT Office Visit [facility] [address] [place] [address] Franc Beyer MD [address] [place] [address] [facility] Start: 04-20-2023 COVID-19 Vaccine ( season) COVID-19 Vaccine ( season) [facility] Start: 04-20-2023 Influenza vaccination Influenza Vacc ine (#1) [facility] Start: 05-20-2022 Influenza vaccination Influenza Vacc ine (#1) [facility] Start: 04-20-2022 Influenza vaccination INFLUENZA (#1) [facility] Start: 08-20-2021 DEPRESSION ASSESSMENT DEPRESSION ASS ESSMENT [facility] Start: 08-10-2021 COVID-19 VACCINE (4 - Booster for Pfizer series) COVID-19 VACCINE (4 - Booster for Pfizer series) [facility] Start: 2019 HPV Vaccine (optiona l start 27-45 years) HPV Vaccine (optional start 27-45 years) [facility] Start: 02-17-2014 Annual wellness visit Annual [facility] ([id number]) [facility] Start: 2011 Hepatitis A (HAV) Vaccine (optional start 19+ years) Hepatitis A (HAV) Vaccine (optional start 19+ years) [facility] Start: 2011 Hepatitis B vaccination Hepatitis B (HBV) Vaccine (1 of 3 - 19+ 3-dose series) [facility] Start: 2011 Hepatitis B Vaccine (1 of 3 - 19+ 3-dose series) Hepatitis B Vaccine (1 of 3 - 19+ 3-dose series) [facility] Start: 2011 Urine microalbumin profile DTAP,TDAP,TD (1 - Tdap) [facility] Start: 2010 Annual PCP Team Chronic Disease Visit Annual PCP Team Chronic Disease Visit [facility] Start: 2010 Hepatitis C screening M [facility] Start: 2010 HEPATITIS C SCREENING HEPATITIS C SC REENING [facility] Start: 2010 HIV SCREENING HIV SCREENING [facility] Start: 2010 HIV screening HIV Screening [facility] Start: 2007 HIV screening HIV Test [facility] Start: 2004 Adult depression screening assessment DEPRESSION SCREENING [facility] Start: 1992 HEPATITIS B (1 of 3 - 3-dose series) HEPATITIS B (1 of 3 - 3-dose series) [facility] Start: 1992 Hepatitis B vaccination Hepatitis B (HBV) Vaccine (1 of 3 - 3-dose series) [facility] Start: 1992 Thyroid stimulating hormone measurement TSH [facility] DENTAL RESTORATIONS DENTAL OMAR RATIONS Routine scheduled Caries [facility] URINALYSIS, REFLEX MICROSCOPIC URINALYSIS, REFLEX MICROSCOPIC Lab Routine Screening for genitourinary condition Ordered: 12/03/2023 [facility] Work Phone: Comment on above: Ordered: 12/03/2023 [facility] c Immunizations Immunization Date Immunization Notes Care Provider Fa sheree 06-15-2021 influenza, injectabl e, quadrivalent, preservative free To Assigned [facility] 06-15-2021 influenza virus vacc ine, unspecified formulation To Assigned [facility] 05-26-2020 influenza, injectabl e, quadrivalent, preservative free To Assigned [facility] 07-10-2019 tetanus toxoid, redu alex diphtheria toxoid, and acellular pertussis vaccine, adsorbed To Assigned [facility] 06-13-2019 influenza, injectabl e, quadrivalent, preservative free To Assigned [facility] 05-29-2018 influenza, injectabl e, quadrivalent, preservative free To Assigned [facility] 06-13-2017 influenza, injectabl e, quadrivalent, contains preservative To Assigned [facility] 06-10-2015 influenza, injectabl e, quadrivalent, preservative free [facility] 06-12-2012 influenza, seasonal, injectable To A ssigned [facility] 05-03-2011 influenza, seasonal, injectable, preservative free To Assigned [facility] 06-15-2010 influenza, seasonal, [facility] 07-07-2009 novel influenza-H1N1 -09, preservative-free, injectable To Assigned [facility] 05-11-2009 influenza, seasonal, injectable To A ssigned [facility] 06-15-2008 influenza, seasonal, injectable To A ssigned [facility] 06-11-2008 influenza virus vacc ine, whole virus To Assigned [facility] Payers Date Payer Category Payer Specific state progr [facility] (list/ local code) TB FUNDED 0000 [id number] 07-08-2020 Unknown [id number] 07-20-2017 Dental --Stand Alone DENTAL-MEDI CAID [id number] 07-20-2017 Medicaid [id number] 02-17-2013 Medicare [id number] 1.13.56.2.7 .[id number] 02-17-2013 Medicare FFS MEDICARE [id number] 1992 Unknown [id number] 2.840.1.389087.3.579.2. 73 1992 Unknown [id number] 2.840.1.746614.3.579.2. 73 1992 Unknown [id number] 2.840.1.958944.3.579.2 1992 Unknown [id number] 2.840.1.362147.3.579.2. 73 1992 Unknown [id number] 2.840.1.438856.3.579.2. 73 1992 Unknown [id number] 2.16840.1.549939.3.579.2. 73 1992 Unknown [id number] 2.16840.1.159746.3.579.2. 73 1992 Unknown [id number] 2.16840.1.611981.3.579.2. 73 1992 Unknown [id number] 2.16840.1.381952.3.579.2. 732 1992 Unknown [id number] 2.16840.1.151573.3.579.2. 732 1992 Unknown [id number] 2.16.840.1.668806.3.579.2. 732 1992 Unknown [id number] 2.16.840.1.860739.3.579.2. 727 1992 Unknown [id number] 2.16.840.1.503819.3.579.2. 727 1992 Unknown [id number] 2.16.840.1.816761.3.579.2. 1259 1992 Unknown [id number] 2.16.840.1.553449.3.579.2. 1259 1992 Unknown [id number] 2.16.840.1.522518.3.579.2. 1259 1992 Unknown [id number] 2.16.840.1.235798.3.579.2. 1259 08-20-1957 Medicaid [id number] 08-20-1957 Medicare [id number] Unknown [id number] 2.16.840.1.003936.3.579.2. 593 Unknown [id number] 2.16.840.1.246081.3.579.2. 593 Unknown [id number] 2.16.840.1.861850.3.579.2. 593 Unknown [id number] 2.16.840.1.338147.3.579.2. 593 Unknown [id number] 2.16.840.1.406771.3.579.2. 593 Unknown [id number] 2.16.840.1.504923.3.579.2. 593 Unknown [id number] 2.16.840.1.609440.3.579.2. 593 Unknown [id number] 2.16.840.1.416802.3.579.2. 593 Specific state progr ams (list/ local code) TB FUNDED [id number] Social History Date Type Detail Facility Start: 07-08-2019 End: 06-22-2023 Tobacco smoking status ILIS Never smoked tobacco [facility] Start: 07-08-2019 End: 06-22-2023 Tobacco use and exposure Smokeless tobacco non-user [facility] Start: 02-04-2021 End: 12-31-2023 Alcohol intake Lifetime non-drinker (finding) [facility] Start: 07-13-2020 History SDOH Alcohol Frequency 1 [facility] Start: 1992 Sex Assigned At Not on file [facility] Start: 05-04-2022 End: 12-19-2023 Tobacco smoking status [facility] Tobacco smoking consumption unknown [facility] Start: 04-24-2022 End: 05-04-2022 Exposure to SARS-CoV-2 (event) Not sure [facility] Start: 06-22-2023 End: 10-29-2023 Gender identity Not on file [facility] Tobacco smoking status No Smokin g Status Entered [facility] Start: 06-22-2023 End: 10-29-2023 History of Social function [facility] Work Phone: Has the [employer], [employer], or [employer] threatened to shut off services in your home in past 12Mo Patient unable to answer [facility] Work Phone: How often to you hav e a drink containing alcohol? Never [facility] Work Phone: Start: 07-20-2017 Sex Male (finding) [facility] Clinical Notes 03-29-2022 to 05-21-2024 BETI Juarez [...] CT scan of the brain 11/03/23 at [facility] that revealed volume loss, especially in [...] in 6 months documented in this encounter [facility] 02-13-2024 Evaluation + Plan note Diagnostic Tests PendingKeppra Lvl 02/13/24Lamotrigine Level 02/13/24 [facility] 01-11-2024 Telephone encounter Note Jessica from [facility] [phone] is caller. She states was originally told [...] needs at present time. Cris Dinh RN [facility] 01-11-2024 Miscellaneous Notes Jessica from [facility] [phone] is caller. She states was originally told [...] Cris Dinh, MIRIAM documented in this encounter [facility] 12-28-2023 Hospital Discharge instructions Benjamín Guo - 12/28/2023 2:17 PM EDT PERIOPERATIVE DISCHARGE/HOME-GOING INSTRUCTIONS ANESTHESIA - GENERAL (ADULT) If a problem arises, you may contact your physician by calling [phone] and asking for the resident machine container washer for Dental service. Special Care Needs: Activity: [...] sent through Care Everywhere.Tooth Extraction Discharge Instructions (Ghanaian)documented in this encounter [facility] 12-28-2023 Note Surgical Attestation : I [...] Mari Yi DMD 12/28/2023 10:09 AM [facility]-28[facility]23 History and physical note Surgical [...] possible Mari Yi DMD 12/28/2023 10:09 AM [facility] Work Phone: 12-28-2023 History and physical [...] 12/28/2023 10:09 AM documented in this encounter [facility] 12-28-2023 Miscellaneous Notes Brief Operative Note PHE OR 3 Johnny Devine 33 year old male Surgical Contact Serial Number: [id number] Preoperative Diagnosis: Pre-op Diagnosis * Caries [K02.9] Moderate intellectual disability [F79] Postoperative Diagnosis: Moderate intellectual disability [F79] Procedures: Comprehensive exam [75797] Full mouth X-ray [ 95143] Extractions [85098] Restorations [08998] Prophy 41498] Fluoride treatment [92288] Surgeon(s): Surgeon(s): Mari Yi DMD Staff: Investment Director Nurse: Henrietta Johnson Anesthesia: General Anesthesia Staff: [...] disability[F79] @ENCORD@ Surgeon: Dr. Mari Yi DMD Professor Of Astronomy Surgeon: Reema Whiting DDS Anesthesia: General- Nasal [...] 4 mg/0.1 mL nasal liquid Use 1 [place] in one nostril (alternate sides) as needed [...] were discussed with the patient and/or legal dermatology sales representative. The risks, benefits and alternatives were reviewed. Questions regarding blood transfusions were answered. The patient /or the patient s legal dermatology sales representative agree with the plan for transfusion of blood and/or blood components. documented in this encounter [facility] 12-28-2023 Surgery Postoperative evaluation and management note Brief Operative Note PHE OR 3 Johnny Devine 33 year old male Surgical Contact Serial Number: [id number] Preoperative Diagnosis: Pre-op Diagnosis * Caries [K02.9] Moderate intellectual disability [F79] Postoperative Diagnosis: Moderate intellectual disability [F79] Procedures: Comprehensive exam [80658] Full mouth X-ray [ 04544] Extractions [32452] Restorations [23376] Prophy 65270] Fluoride treatment [87777] Surgeon(s): Surgeon(s): Mari Yi DMD Staff: Investment Director Nurse: Henrietta Johnson Anesthesia: General Anesthesia Staff: [...] Reema Whiting DDS 12/28/2023 1;48 pm T [facility] 12-28-2023 Surgery Surgical operation note Surgical Case Number Data Unavailable Operating Room Data Unavailable Preoperative Diagnosis(es): Pre-op Diagnosis * Caries [K02.9] Moderate intellectual disability [F79] Postoperative Diagnosis(es): Moderate intellectual disability[F79] @ENCORD@ Surgeon: Dr. Mari Yi DMD Professor Of Astronomy Surgeon: Reema Whiting DDS Anesthesia: General- Nasal [...] 4 mg/0.1 mL nasal liquid Use 1 [place] in one nostril (alternate sides) as needed [...] procedure. Reema Whiting DDS 12/28/2023 1:53 pm [facility] 12-28-2023 Progress note Formatting of t his note is different from the original. Blood Attestation: ATTESTATION OF INFORMED CONSENT FOR BLOOD: The transfusion of blood and/or blood components were discussed with the patient and/or legal dermatology sales representative. The risks, benefits and alternatives were reviewed. Questions regarding blood transfusions were answered. The patient /or the patient s legal dermatology sales representative agree with the plan for transfusion of blood and/or blood components. [facility] 12-28-2023 History of Present illness Narrative Patient takes his seizure medication with pudding, facility held them today for dental surgery. Caregiver brought capsules with them to pre-op. Per Dr. Saldivar, divalproex 125 mg x 4 capsules (500 mg) were opened and sprinkles given to patient with 50 mL of water in pre-op. 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 MB cusp tip was visualized upon extraction of #17, but well encased in bone and would not be exposed to the oral cavity following healing of the extraction site. Preoperative Diagnosis(es): Pre-op Diagnosis * Caries [K02.9] Moderate intellectual disability [F79] Postoperative Diagnosis(es): Moderate intellectual disability[F79] Surgeon: Dr. Mari Yi, ANIYAH Professor Of Astronomy Surgeon: Reema Whiting DDS Anesthesia: General- Nasal [...] of surgery: Stable documented in this encounter [facility] 12-21-2023 Evaluation note Addendum 12/21/2023- Caregiver @ [facility] called to relay that patient unable to take medications without pudding. Per Dr. Newell: Instruct them to take the meds at night. Please then coordinate with either the anesthesia team or surgical team to order IV depacon so he can get his depakote. I would have the facility bring his oral depakote for after surgery If they can't get the depacon at [facility] RN updated nursing staff @ [facility]. [facility] 12-21-2023 Miscellaneous Notes Addendum 12/21/2023- Caregiver @ [facility] facility called to relay that patient unable to take medications without pudding. Per Dr. Newell: Instruct them to take the meds at night. Please then coordinate with either the anesthesia team or surgical team to order IV depacon so he can get his depakote. I would have the facility bring his oral depakote for after surgery If they can't get the depacon at [facility] RN updated nursing staff @ [facility]. Patient was identified by name and date of . Jaswinder Arredondo Patient at risk for falls:No Falls Risk protocol implemented: N/A documented in this encounter [facility] 12-19-2023 Note Pre-Admission Testin g Consultation Johnny Devine, [id number] 33 year old Male 12/19/2023 Consult placed to [facility] by Mari Yi, due to significant PMH [...] intervention warranted . Patient with Lamaar from [facility] during this appointment Patient is here for pre-admission optimization and education prior to surgery. RECENT ILLNESS: Serious illness or hospitalization within the last six months. Yes 10/28/2023 HOSPITAL COURSE: Johnny Devine is a 33 year old male with developmental delay and no PSH who presents as a transfer to [facility] from [facility] ED for further management of small bowel obstruction. Given patient's baseline cognitive status, NGT difficult to maintain. He was admitted to the [facility] under care of general surgery and was taken to the OR the following morning for diagnostic laparoscopy. Intra-operative findings demonstrated no adhesins, no apparent hernias, dilated small/large bowel, redundant sigmoid c/f volvulus, easily reduced. After recovering in the PACU, he was taken to the [facility] with NGT in place. Patient arrived to [facility] with 8 Fr pediatric haskins catheter [...] in home regimen. Stable for discharge to [facility]. Neurology Recommendations on Discharge: - Discharge on [...] SERVICES; Ser (more content not included)... [facility] [employer] [facility] 12-19-2023 Instructions Ling Coffman APRN-CNP - [...] for pain. Please hold all Vitamin E, Dickson 3, fish oil and herbal supplements for 1 week prior to surgery. Please use this LIST to prepare for your surgery/procedure: ? Assume that any lab or testing done during your Pre-admission testing appointment is within normal limits unless otherwise contacted. ? Expect a call from [employer] one business day prior to surgery for [...] your Preparing for Your Surgery/Procedure booklet or [email or web address] if you have questions. Contact the Pre-Admission Testing department at [phone] or your surgeon's office with any questions [...] stay with you after surgery. Please call [employer] if you need transportation assistance or have concerns about going home [phone]. ? SLEEP APNEA PATIENTS: Bring your sleep apnea machine and mask. ? PLEASE BE ON TIME. A late arrival may result in the cancellation/ delay of your surgery. Thank you for choosing [employer]; it is our pleasure to care for you documented in this encounter [facility] 12-19-2023 Instructions Shanna Sauceda RN - 12/19/2023 11:26 AM EDT [facility] staff: Since patient is unable to take [...] for pain. Please hold all Vitamin E, Dickson 3, fish oil and herbal supplements for 1 week prior to surgery. Please use this LIST to prepare for your surgery/procedure: ? Assume that any lab or testing done during your Pre-admission testing appointment is within normal limits unless otherwise contacted. ? Expect a call from [employer] one business day prior to surgery for [...] your Preparing for Your Surgery/Procedure booklet or [email or web address] if you have questions. Contact the Pre-Admission Testing department at [phone] or your surgeon's office with any questions [...] stay with you after surgery. Please call [facility] [employer] if you need transportation assistance or have concerns about going home [phone]. ? SLEEP APNEA PATIENTS: Bring your sleep apnea machine and mask. ? PLEASE BE ON TIME. A late arrival may result in the cancellation/ delay of your surgery. Thank you for choosing [facility]; it is our pleasure to care for you documented in this encounter [facility] 12-19-2023 Evaluation note Patient was identified by name and date of . Jaswinder Arredondo Patient at risk for falls:No Falls Risk protocol implemented: N/A [facility] 12-19-2023 Miscellaneous Notes Patient was identified by name and date of . Jaswinder Arredondo Patient at risk for falls:No Falls Risk protocol implemented: N/A documented in this encounter [facility] 12-19-2023 History of Present illness Narrative Images from the original note were not included. Pre-Admission Testing Consultation Johnny Devine, [id number] 33 year old Male 12/19/2023 Consult placed to [facility] by Mari Yi, due to significant PMH [...] intervention warranted . Patient with Lamaar from [facility] during this appointment Patient is here for pre-admission optimization and education prior to surgery. RECENT ILLNESS: Serious illness or hospitalization within the last six months. Yes 10/28/2023 HOSPITAL COURSE: Johnny Devine is a 33 year old male with developmental delay and no PSH who presents as a transfer to [facility] from [facility] ED for further management of small bowel obstruction. Given patient's baseline cognitive status, NGT difficult to maintain. He was admitted to the [facility] under care of general surgery and was taken to the OR the following morning for diagnostic laparoscopy. Intra-operative findings demonstrated no adhesins, no apparent hernias, dilated small/large bowel, redundant sigmoid c/f volvulus, easily reduced. After recovering in the PACU, he was taken to the [facility] with NGT in place. Patient arrived to [facility] with 8 Fr pediatric haskins catheter [...] in home regimen. Stable for discharge to [facility]. Neurology Recommendations on Discharge: - Discharge on [...] DENTAL RESTORATIONS; Surgeon: Harpreet Mccurdy DDS; Location: [facility]; Service: Dental Past Medical History [...] DATA: CBC @ [facility] 11/07/2023 CBC Order: [id number] Component Ref Range & Units 1 mo [...] 0418 141 110 21 91 Comment: The [place] Diabetes Association (ADA) provides guidance for cutoff [...] Standards of Medical Care in Diabetes 2016, [place] [employer]. Diabetes Care. 2016.39(Suppl 1). 8 0.70 8.2 11/06/23 0943 146 112 18 83 Comment: The [place] Diabetes Association (ADA) provides guidance for cutoff [...] Standards of Medical Care in Diabetes 2016, [place] [employer]. Diabetes Care. 2016.39(Suppl 1). 6 0.69 8.9 11/05/23 0418 142 112 23 96 Comment: The [place] Diabetes Association (ADA) provides guidance for cutoff [...] Standards of Medical Care in Diabetes 2016, [place] [employer]. Diabetes Care. 2016.39(Suppl 1). 5 0.64 7.6 11/04/23 0826 145 112 24 79 Comment: The [place] Diabetes Association (ADA) provides guidance for cutoff [...] Standards of Medical Care in Diabetes 2016, [place] [employer]. Diabetes Care. 2016.39(Suppl 1). 4 0.70 7.7 TESTS REVIEWED: I personally reviewed and interpreting and findings were: CXRay: Chest x-ray was last done on 10/31/2023 EK10/31/2023 @ [facility] NORMAL SINUS RHYTHM ANTEROLATERAL T WAVE [...] 1:39 PM 12/19/2023 documented in this encounter [facility] 12-19-2023 History of Present illness Narrative Images from the original note were not included. Pre-Admission Testing Consultation Johnny Devine, [id number] 33 year old Male 12/19/2023 Consult placed to [facility] by Mari Yi, due to significant PMH of Hypothyroidism , Bipolar, Autistic disorder ,Epilepsy [facility] Triage Risk Score Total Score: 3 1 [...] intervention warranted . Patient with Lamaar from [facility] during this appointment Patient is here for pre-admission optimization and education prior to surgery. RECENT ILLNESS: Serious illness or hospitalization within the last six months. Yes 10/28/2023 HOSPITAL COURSE: Johnny Devine is a 33 year old male with developmental delay and no PSH who presents as a transfer to [facility] from [facility] for further management of small bowel obstruction. Given patient's baseline cognitive status, NGT difficult to maintain. He was admitted to the [facility] under care of general surgery and was taken to the OR the following morning for diagnostic laparoscopy. Intra-operative findings demonstrated no adhesins, no apparent hernias, dilated small/large bowel, redundant sigmoid c/f volvulus, easily reduced. After recovering in the PACU, he was taken to the [facility] with NGT in place. Patient arrived to [facility] with 8 Fr pediatric haskins catheter [...] in home regimen. Stable for discharge to [facility]. Neurology Recommendations on Discharge: - Discharge on anti-epileptic medications as prescribed - Please schedule outpatient follow-up with epilepsy - Please order outpatient MRI without contrast (3T epilepsy protocol) to be done prior to epilepsy appointment STOP BANG: STOP-BANG Row Name 05/01/24 1110 History of sleep apnea? No Snoring [...] DENTAL RESTORATIONS; Surgeon: Harpreet Mccurdy DDS; Location: [facility]; Service: Dental Past Medical History [...] (Skin) Resp 18 Ht 1.676 m (5' ) Wt 89.4 kg (197 lb) SpO2 [...] MG CSDR capsule LABORATORY DATA: CBC @ [facility] 11/07/2023 CBC Order: [id number] Component Ref Range & Units 1 mo [...] 0418 141 110 21 91 Comment: The [place] Diabetes Association (ADA) provides guidance for cutoff [...] Standards of Medical Care in Diabetes 2016, [place] [employer]. Diabetes Care. 2016.39(Suppl 1). 8 0.70 8.2 11/06/23 0943 146 112 18 83 Comment: The [place] Diabetes Association (ADA) provides guidance for cutoff [...] Standards of Medical Care in Diabetes 2016, [place] [employer]. Diabetes Care. 2016.39(Suppl 1). 6 0.69 8.9 11/05/23 0418 142 112 23 96 Comment: The [place] Diabetes Association (ADA) provides guidance for cutoff [...] Standards of Medical Care in Diabetes 2016, [place] [employer]. Diabetes Care. 2016.39(Suppl 1). 5 0.64 7.6 11/04/23 0826 145 112 24 79 Comment: The [place] Diabetes Association (ADA) provides guidance for cutoff [...] Standards of Medical Care in Diabetes 2016, [place] [employer]. Diabetes Care. 2016.39(Suppl 1). 4 [...] 1:39 PM 12/19/2023 documented in this encounter [facility] 12-03-2023 Note HNO ID: [id number] Author: OSCAR RUIZ MD Service: ? Author [...] from ongoing urologic care. Oscar Ruiz MD [facility] 12-03-2023 Note Patient Outreach (UR OLMN) JOHNNY DEVINE ([id number]) 1990 M Date Time Provider Department 12/03/23 RAFAEL GIRALDO During your visit today, we recorded the following information about you: Allergies As of Date: 12/03/2023 Noted Allergy Reaction BIAXIN (CLARITHROMYCIN) 05/04/2022 14 - Other: See Comments Comments: caregiver does not know Date Reviewed: 12/03/2023 Reviewed by: Sukhdeep Barton OCCA - Fully Assessed Visit Diagnosis:Screening for genitourinary condition [Z13.89] Order(s):URINALYSIS, REFLEX MICROSCOPIC [WLY1632] Order #: [id number] Prescriptions as of 12/06/2023 - cloNIDine HCl [...] 12/03/2023 Noted Resolved SBO (small bowel obstruction) ([facility]) [K56.609] 10/28/2023 10/31/2023 Bipolar disorder (HCC) [F31.9] 09/16/2018 Hypothyroidism [E03.9] 09/16/2018 Obsessive-compulsive disorder [F42.9] 09/16/2018 Moderate intellectual disability [F71] 09/16/2018 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 Author Type: Nurse Practitioner Type: Progress Notes Filed: 11/28/2023 10:19 Note Text: [facility] Clinic Date: November 28, 2023 Johnny Devine 33 year old male CHIEF COMPLAINT: Patient presents for follow up from surgery. HPI: Here for follow up after diagnostic laparotomy on 10/29/[address] Robin. Patient also underwent a dorsal slit procedure with urology on 10/30/2023 for paraphimosis. Patient with a back gray cloth washer today to discuss his postoperative course since [...] by mouth two times a day. 0200, 2000 loratadine 10 mg cap Take 10 mg [...] for further surgery discussion Victoria Sanchez, MSN, SASH MAKER-STOCK PARTS FABRICATOR November 28, 2023 [facility] 11-28-2023 History of Present illness Narrative [facility] Clinic Date: November 28, 2023 Johnny Devine 33 year old male CHIEF COMPLAINT: Patient presents for follow up from surgery. HPI: Here for follow up after diagnostic laparotomy on 10/29/[address] Robin. Patient also underwent a dorsal slit procedure with urology on 10/30/2023 for paraphimosis. Patient with a back gray cloth washer today to discuss his postoperative course since [...] by mouth two times a day. 0200, 2000 loratadine 10 mg cap Take 10 mg [...] for further surgery discussion Victoria Sanchez, MSN, SASH MAKER-STOCK PARTS FABRICATOR November 28, 2023 documented in this encounter [facility] 11-28-2023 Nurse Note What is the reason for your visit today? Post op Who is your referring physician? Dr. Sanchez Are you having poor oral intake? NO Have you had unintentional weight loss of 15 lbs/7 Kg in the last 3-6 months? NO Bowels: regular Wound: clean & dry Temperature: No Drains: No documented in this encounter [facility] 11-12-2023 Miscellaneous Notes Called care facility [...] at present time. Office line given. Cris Dinh, RN documented in this encounter [facility] 11-07-2023 Note HNO ID: [id number] Author: HERMAN SALOMON RN Service: Care Management Author Type: Registered Nurse Type: Care Mgt Progress Note Filed: 11/07/2023 14:56 Note Text: CARE MANAGEMENT DISCHARGE NOTE SERVICE DATE: November 07, 2023 SERVICE TIME: 2:56 PM Admission Date: 10/28/2023 LOS: 10 days Discharge Arrangement Discharge Arrangement: [facility] Services Arranged Medical Services: Other: See Comment (no services indicated) Caregiver Assessment Caregiver is ready, willing and able to meet the patient's needs as recommended by the inter-professional team: Yes Name of Caregiver: Kristofer Pillai Transportation Arrangements Transportation Arrangements: Car Destination: [facility] Additional Information: Patient d/c ready to [facility] with no skilled needs identified. Patient and bedside RN aware of plan. [facility] to transport patient home via private auto. SIGNATURE: Herman Salomon RN PATIENT NAME: Johnny Devine DATE: November 07, 2023 TIME: 2:55 PM CONTACT #: [phone] [facility] 11-07-2023 Note HNO ID: [id number] Author: GIA MULLER MD Service: General Surgery [...] * DORSAL SLIT FORESKIN EXCEPT - General [facility] 11-07-2023 Note HNO ID: [id number] Author: MAYANK READ, MIRIAM Service: Nursing Author Type: Registered Nurse Type: Nursing Progress Note Filed: 11/07/2023 09:25 Note Text: Paged primary team of low BP. [facility] 11-06-2023 Note HNO ID: [id number] Author: ALEXANDRA CHAIREZ MD Service: General Surgery [...] Chairez MD General Surgery Resident Екатерина(Jacob No): [phone] Grundfest(Boy Alcaraz, Misti): [phone] After 6PM + Weekends: [id number] INTERVAL EVENTS / PERTINENT REVIEW OF SYSTEMS: [...] Coags, BMP, Mg, Phos Recent Labs 11/05/23 04111/05/23 0418 11/04/23 0826 WBC 7.54 -- 9.36 HB 9.7* -- 10.5* HCT 30.8* -- 33.4* PLT 205 -- 242 NA -- 142 145* K -- 4.2 3.6* CHLOR -- 112* 112* CO2 -- 23 24 BUN -- 5* 4* CREAT -- [...] * DORSAL SLIT FORESKIN EXCEPT - General [facility] 11-06-2023 Note HNO ID: [id number] Author: BERNARDA SUE MD Service: Neurology General [...] DATE: November 06, 2023 TIME: 12:26 AM [facility] 11-05-2023 Note HNO ID: [id number] Author: LEEANN TELLES MD Service: General Surgery [...] as appropriate, non-distended Leeann Telles MD PGY1 [facility] 11-05-2023 Note HNO ID: [id number] Author: JUAQUIN KRISHNAMURTHY RN Service: Nursing Author [...] to bedside, Valium ordered at this time. [facility] 11-05-2023 Note HNO ID: [id number] Author: HERMAN SALOMON RN Service: Care Management Author Type: Registered Nurse Type: Care Mgt Progress Note Filed: 11/05/2023 11:21 Note Text: CARE MANAGEMENT PROGRESS NOTE SERVICE DATE: 11/05/2023 SERVICE TIME: 11:20 AM LOS: 8 days [place] of Choice Explained: [place] of Choice Given: No Reason Not Given: No placements necessary Anticipated # of Days Until Discharge: 4 Needs Prior to Discharge: Needs Prior to Discharge: To Be Determined Post-Acute Discharge Plan: Patient from [facility]. Plan is to return at discharge. fuel system maintenance supervisor is Magi [phone]. Per Magi, she will provide transport at discharge. Magi is requesting an abdominal binder at discharge due to patient's history of self-injurious behavior. 33 year old male POD #7 diagnostic laparoscopy. Patient is non-verbal, developmental delay and lives in [facility]. No skilled needs anticipated. SIGNATURE: Herman Salomon RN PATIENT NAME: Johnny Devine DATE: November 05, 2023 TIME: 11:19 AM PAGER/CONTACT #: [phone] [facility] 11-05-2023 Note HNO ID: [id number] Author: CONNIE CAICEDO MD Service: Neurology General [...] Dr. Almanzar. Connie Caicedo MD 5:49 PM [facility] 11-05-2023 Note HNO ID: [id number] Author: ALEXANDRA CHAIREZ MD Service: General Surgery [...] Chairez MD General Surgery Resident Екатерина(Jacob No): [phone] Grundfest(Boy Alcaraz Petro): [phone] After 6PM + Weekends: [phone] INTERVAL EVENTS / PERTINENT REVIEW OF SYSTEMS: [...] * DORSAL SLIT FORESKIN EXCEPT - General [facility] 11-04-2023 Note HNO ID: [id number] Author: ALEXANDRA CHAIREZ MD Service: General Surgery [...] Neuro: continue lorazepam TID per neurology(clarified with [facility] and patient has been getting scheduled [...] Chairez MD General Surgery Resident Екатерина(Jacob No): [phone] Grundfest(Kieran, Boy, Misti): [phone] After 6PM + Weekends: [phone] INTERVAL EVENTS / PERTINENT REVIEW OF SYSTEMS: [...] * DORSAL SLIT FORESKIN EXCEPT - General [facility] 11-03-2023 Note HNO ID: [id number] Author: ZAIRA ROBERT MD Service: General Surgery [...] (Res) November 03, 2023, 10:29 AM P: [phone] INTERVAL EVENTS / PERTINENT REVIEW OF SYSTEMS: [...] * DORSAL SLIT FORESKIN EXCEPT - General [facility] 11-03-2023 Note HNO ID: [id number] Author: LYLE TRINIDAD RN Service: ? Author Type: Registered Nurse Type: Progress Notes Filed: 11/03/2023 22:32 Note Text: This telegraphic typewriter mechanic was called by another nurse that pt had a witnessed 20 seconds of seizure episode. AMET called and team notified and orders given. [facility] 11-02-2023 Note HNO ID: [id number] Author: LEEANN TELLES MD Service: General Surgery [...] as appropriate, non-distended Leeann Telles MD PGY1 [facility] 11-02-2023 Note HNO ID: [id number] Author: HERMAN SALOMON RN Service: Care Management Author Type: Registered Nurse Type: Care Mgt Progress Note Filed: 11/02/2023 11:43 Note Text: CARE MANAGEMENT WEEKEND PLANNING NOTE DISCHARGE OR POSSIBLE DISCHARGE Date/Time: TBD [facility] Transport: Car /Magi Other Concerns: Patient from [facility]. Plan is to return at discharge. fuel system maintenance supervisor is Magi [phone]. Per Magi, she will provide transport at discharge. She will need to be contacted if patient ready to discharge over the weekend. Magi is requesting an abdominal binder at discharge due to patient's history of self-injurious behavior. 33 year old male POD #4 diagnostic laparoscopy. Patient is non-verbal, developmental delay and lives in [place]. Weekend Radiology Special Procedure Tech Pager #: Please see Treatment Team for Care Management Weekend/Holiday coverage. SIGNATURE: Herman Salomon RN PATIENT NAME: Johnny Devine DATE: November 02, 2023 TIME: 11:42 AM PAGER/CONTACT #: [phone] [facility] 11-02-2023 Note HNO ID: [id number] Author: FRANCK MAGDALENO MD Service: General Surgery [...] RNF, dispo pending diet and dispo planning Fracnk Andrews MD Acute Care Surgery Resident PAGER [phone] INTERVAL EVENTS / PERTINENT REVIEW OF SYSTEMS: [...] 122/55 Pulse: (!) 48 (!) 156 Resp: Temp: 36.5 ?C (97.7 ?F) 36.9 ?C [...] * DORSAL SLIT FORESKIN EXCEPT - General [facility] 11-01-2023 Note HNO ID: [id number] Author: ANA LUISA FARR MD Service: General [...] , appreciate Recs (below); haskins out at [facility], f/u TOV - Recommend applying vaseline PRN [...] Farr MD Acute Care Surgery Resident PAGER [phone] INTERVAL EVENTS / PERTINENT REVIEW OF SYSTEMS: No acute events overnight. Distended abd in AM Passing gas OBJECTIVE: Intake/Output Summary (Last 24 hours) at 11/02/2023 0524 Last data filed at 11/02/2023 0212 Gross per 24 hour Intake 1025 ml Output 1202 ml Net -177 ml PHYSICAL EXAM: 11/01/23 1427 11/01/23 2100 11/01/23 2112 11/02/23 0000 BP: 134/74 117/78 Pulse: (!) 57 Resp: 17 24 Temp: 36.7 ?C (98.1 ?F) 36.5 ?C [...] * DORSAL SLIT FORESKIN EXCEPT - General [facility] 10-31-2023 Note HNO ID: [id number] Author: ANA LUISA FARR MD Service: General [...] Farr MD Acute Care Surgery Resident PAGER [phone] INTERVAL EVENTS / PERTINENT REVIEW OF SYSTEMS: [...] CHLOR 115* 113* -- 112* -- CO2 24 -- 21* -- BUN 8* 9 [...] Drain Duration Indwelling Urinary Catheter 10/30/23 0811 [facility] 10 Fr 1 day SURGERY/PROCEDURE: Procedure(s) and Anesthesia Type: * DORSAL SLIT FORESKIN EXCEPT - General [facility] 10-31-2023 Note HNO ID: [id number] Author: HEAVEN CAMACHO MD Service: Urology Author [...] clinical indicators: x Hypophosphatemia Other, please specify [facility] 10-31-2023 Note HNO ID: [id number] Author: BEATRIZ MEHTA MD Service: General Surgery [...] Mehta MD General Surgery Resident General Surgery: [id number] On nights (6 pm to 6 am) and on Weekends/Holidays, please page the on-call pager: [phone] 10/31/23 2:39 AM [facility] 10-31-2023 Note HNO ID: [id number] Author: JUAQUIN KRISHNAMURTHY RN Service: Nursing Author Type: Registered Nurse Type: Progress Notes Filed: 10/31/2023 01:48 Note Text: Messaged Night team Dr. Mehta about haskins drainage turning bloody. Patient is asleep and comfortable [facility] 10-30-2023 Note HNO ID: [id number] Author: JEREMIE JOAQUIN MD Service: ? Author [...] Image in Chart: No SIGNATURE: Nilay Zimmer APRN.CRNA PATIENT NAME: Johnny Devine DATE: October 30, 2023 TIME: 8:11 AM CSN: [id number] [facility] 10-30-2023 Note HNO ID: [id number] Author: JEREMIE JOAQUIN MD Service: ? Author Type: Anesthesiologist Type: Anesthesia Procedure Notes Filed: 10/30/2023 11:59 Note Text: ANESTHESIOLOGY PROCEDURE NOTE Airway General Information Procedure Start Time/Medication Administration: 10/30/2023 7:46 AM Patient location during procedure: OR Timeout Performed Pre-procedure: timeout performed Consent Obtained: Yes Patient identity confirmed: arm band, care help desk team leader and patient Staffing Anesthesiologist: Jeremie [...] gastric contents in oropharynx. SIGNATURE: Nilay Zimmer APRN.EDGER LINER PATIENT NAME: Johnny Devine DATE: October 30, 2023 TIME: 7:58 AM CSN: [id number] [facility] 10-30-2023 Note HNO ID: [id number] Author: FRANCK MAGDALENO MD Service: General Surgery [...] Andrews MD Acute Care Surgery Resident PAGER [phone] INTERVAL EVENTS / PERTINENT REVIEW OF SYSTEMS: [...] <1 day Indwelling Urinary Catheter 10/30/23 0130 [facility] 8 Fr <1 day SURGERY/PROCEDURE: Procedure(s) and Anesthesia Type: * DORSAL SLIT FORESKIN EXCEPT - General [facility] 10-29-2023 Note HNO ID: [id number] Author: HERMAN SALOMON RN Service: Care Management [...] by: Per Department Practice Potential Transition Plans [facility]/Supervised Living Advance Directives Current Advance Directive: Other Document: See Comment (Legal guardian) In Chart: Yes Up To Date and Valid: Yes Current Living Arrangements and Support Lives with: Other person(s) [facility] Type of Residence: [facility] Care Facility Name: [facility] Support: Home care staff, Family members How do you manage to accomplish the following: Independent: Ambulation Dependent: Bathe/Shower;Dress;Meals/Meal Prep;Going to the bathroom;Medication Management;Transportation to appointments/community Current Services/Equipment Current Post-Acute Service(s): None [place] of Choice Explained: [place] of Choice Given: No Reason Not Given: No placements necessary Are you interested in bedside delivery of your medications? No Discharge Planning Participant(s): Other person(s);Guardian Name/Relationship: Magi/Glassworker Patient/Family Comments: Caregiver Assessment: Caregiver is ready, willing and able to meet the patient's needs as recommended by the inter-professional team: Yes Name of Caregiver: [facility] Transport at Discharge: Transportation Arrangements: Car Destination: Home Needs Prior to Discharge: Needs Prior to Discharge: To Be Determined Post-Acute Discharge Plan: 33 year old male POD #0 diagnostic laparoscopy. Patient is non-verbal, developmental delay and lives in [facility]. CM met with patient's legal guardian Delbert and group sales coordinator Magi at bedside. Plan is to return to [facility] at discharge. Per Magi [phone]. [phone], she will provide transport. Magi is requesting an abdominal binder at discharge due to patient's history of self-injurious behavior. CM will continue to follow for transitional care needs. SIGNATURE: Herman Salomon RN PATIENT NAME: Johnny Devine DATE: October 29, 2023 TIME: 4:00 PM CONTACT #: [phone] [facility] 10-29-2023 Note HNO ID: [id number] Author: KENZIE MORE APRN.CRNA Service: ? Author Type: Nurse Clinical Data Programmer Type: Anesthesia Procedure Notes Filed: 10/29/2023 10:18 Note Text: ANESTHESIOLOGY PROCEDURE NOTE Airway General Information Procedure Start Time/Medication Administration: 10/29/2023 10:00 AM Patient location during procedure: OR Timeout Performed Pre-procedure: timeout performed Consent Obtained: Yes Patient identity confirmed: arm band, care help desk team leader and family Staffing EDGER LINER: Kenzie More APRN.EDGER LINER Indications and Patient Condition Indications for airway management: anesthesia Preoxygenated: yes anesthesia circuit Method: rapid sequence Difficult Mask: No Final Airway Details Final airway type: endotracheal airway Final Endotracheal Airway: ETT Cuffed: yes Successful intubation technique: video laryngoscopy Devices used: Xoinka Endotracheal tube insertion site: oral Blade: Raj Blade size: #4 ETT size (mm): 7.5 Placement verified by: capnometry Cormack-Lehane Classification: grade I - full view of glottis Number of attempts at approach: 1 Failed airway: no Unrecognized esophageal intubation: no Airway not difficult SIGNATURE: Kenzie More APRN.CRNA PATIENT NAME: Johnny Devine DATE: October 29, 2023 TIME: 10:17 AM CSN: [id number] [facility] 10-29-2023 Note HNO ID: [id number] Author: ANA LUISA FARR MD Service: General [...] Farr MD Acute Care Surgery Resident PAGER [phone] INTERVAL EVENTS / PERTINENT REVIEW OF SYSTEMS: [...] Anesthesia Type: * EXPLORATORY LAPAROTOMY - General [facility] 10-28-2023 History of Past i llness Narrative Problem Noted Date Diagnosed Date Resolved Date SBO (small bowel obstruction) 10/28/2023 10/31/2023 documented as of this encounter (statuses as of 11/12/2023) [facility]03-10-2024 History of Past illness Narrative* Problem Noted Date Diagnosed Date Resolved Date SBO (small bowel obstruction) 10/28/2023 10/31/2023 documented as of this encounter (statuses as of 11/29/2023) [facility]03-10-2024 History of Past illness Narrative* Problem Noted Date Diagnosed Date Resolved Date SBO (small bowel obstruction) 10/28/2023 10/31/2023 documented as of this encounter (statuses as of 12/04/2023) [facility]03-10-2024 History of Past illness Narrative* Problem Noted Date Diagnosed Date Resolved Date SBO (small bowel obstruction) 10/28/2023 10/31/2023 documented as of this encounter (statuses as of 12/06/2023) [facility]11-27-2023 Hospital Discharge instructions* Discharge Instructions* Yobany [...] be sent through Care Everywhere. * Bradycardia (Ghanaian) documented in this [id number] NoteSurgical Attestation: I have reviewed the patient's History and Physical Examination. I have personally seen and evaluated the patient, repeating knox portions. There is no significant interval change. Surgery is still indicated. Yes Consent reviewed and signed by patient/family: Yes Operative site verified and marked: site verified but not marked as not anatomically possible Bobbi Oswald DDS 07/16/2023 7:09 [facility] [id number] Emergency department Note* Leila Cifuentes RN - 07/16/2023 8:01 AM EST Permission treat given from Cate legal guardian [id number] Emergency department Note* Leila Cifuentes RN - 07/16/2023 8:01 AM EST Permission treat given from Cate legal guardian documented in this [id number] Evaluation + Plan note Diagnostic Tests Pending * Ovilla Level 07/04/23 [facility]11-07-2023 Telephone encounter Note* Telephone Encounter - Shanna Sauceda RN - 06/26/2023 11:14 AM EST Informed Consent for dental surgery & Anesthesia consent obtained and scanned into [facility]. Scheduled for surgery 07/16/2023. [id number] Miscellaneous Notes* Telephone Encounter - Shanna Sauceda RN - 06/26/2023 11:14 AM EST Informed Consent for dental surgery & Anesthesia consent obtained and scanned into [facility]. Scheduled for surgery 07/16/2023. documented in this [id number] NotePresurgical Evaluation (Pre-Admission Testing) Consultation Johnny Devine, [id number] 32 year old Male 06/22/2023 Consult placed [...] DENTAL RESTORATIONS; Surgeon: Harpreet Mccurdy DDS; Location: [facility] Surgery Center; Service: [...] T wave abnor (more content not included)...[employer] [id number] Evaluation note* PSE Appt H&P - Lacey Wilson MD - 06/22/2023 3:10 PM EDT Presurgical Evaluation (Pre-Admission Testing) Consultation Johnny Devine, [id number] 32 year old Male 06/22/2023 Consult placed [...] DENTAL RESTORATIONS; Surgeon: Harpreet Mccurdy DDS; Location: [facility] Surgery Center; Service: [...] - referring and communicating with other health patient care representative (when not separately reported) - documenting clinical information in the electronic or other health record - independently interpreting results (not separately reported) and communicating results to the patient/family/caregiver - care coordination (not separately reported). Interviewer signature: Lacey Wilson MD 3:10 PM 06/22/2023 [id number] Miscellaneous Notes* PSE Appt H&P - Lacey Wilson MD - 06/22/2023 3:10 PM EDT Presurgical Evaluation (Pre-Admission Testing) Consultation Johnny Devine, [id number] 32 year old Male 06/22/2023 Consult placed [...] DENTAL RESTORATIONS; Surgeon: Harpreet Mccurdy DDS; Location: [facility] Surgery Center; Service: [...] - referring and communicating with other health patient care representative (when not separately reported) - documenting clinical information in the electronic or other health record - independently interpreting results (not separately reported) and communicating results to the patient/family/caregiver - care coordination (not separately reported). Interviewer signature: Lacey Wilson MD 3:10 PM 06/22/2023 documented in this [id number] Miscellaneous Notes* Telephone Encounter - Lory Dan [facility] - 05/18/2022 3:18 PM EDT Cate, aunt, was leaving Dr Morales a message: At this time, the family would like to hold off on cataract surgery. Fyi Electronically signed by Lory Dan [facility] at 05/18/2022 3:19 PM EDT * Telephone Encounter - Grupo Morales MD - 05/18/2022 2:23 PM EDT Called today and yesterday after clinic to discuss. No answer, left msg to call back and leave a message. * Telephone Encounter - Nessa Peralta [facility] - 05/17/2022 3:31 PM EDT Pt's aunt returning a call to Dr. Morales to discuss eye care for Johnny. Please try to reach her again at [phone] (Cate Castle) documented in this [facility] Miscellaneous Notes* Telephone Encounter - Nessa Peralta Sec - 05/08/2022 9:01 AM EDT Nurse from [facility] where he resides called for [facility] for his file. Attn: Melanie Joseph F [phone]. Surgery schedulers name and # was provided. documented in this encounterHol[facility] Miscellaneous Notes* Telephone Encounter - Grupo [...] ADLs currently. He currently lives in a [facility] and has a significant history of self-injurious behaviors including banging his head on things and punching his eyes. She believes cataract tarun result of trauma, and I agree with her. These behaviors still happen on a weekly basis, and whilethere's 24/ supervision at the usp, he has a lot of private time [...] week. Grupo Morales MD documented in this encounterHol[facility] History of Present illness Narrative* Angel [...] 04, 2022 10:56 AM documented in this encounterHol[facility]08-[facility]22 Telephone encounter Note * Telephone Encounter - Jose Miguel Jones - 03/29/2022 1:12 PM EDT Care Gaps Scheduling Contact Details: I did not contact pt. Encounter 07/15/21 indicates pt does not see providers at [facility] at this time. Health Maintenance Due: Medicare AWV / PCP Visit: Due Eye Exam: Not due Foot Exam: Not due Annual Blood Work: Due Mammogram: N/A FIT: Not due [id number] Miscellaneous Notes* Telephone Encounter - Jose Miguel Jones - 03/29/2022 1:12 PM EDT Care Gaps Scheduling Contact Details: I did not contact pt. Encounter 07/15/21 indicates pt does not see providers at [facility] at this time. 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 Other and combined forms of senile cataract documented in this encounter [facility] Diagnosis Caries- Primary Unspecified dental [...] aftercare following surgery documented in this encounter [facility] Diagnosis Phimosis- Primary Redundant prepuce and phimosis documented in this encounter [facility]* Diagnosis Screening for genitourinary condition Screening for other and unspecified genitourinary condition [facility] Caries- Primary Unspecified dental caries Pre-op testing- Primary Preoperative examination, unspecified Body mass index (BMI) 31.0-31.9, adult Caries Unspecified dental caries [facility]* Diagnosis Sigmoid volvulus (HCC)- Primary Volvulus [facility] Diagnosis Caries- Primary Unspecified dental caries Pre-op testing- Primary Preoperative examination, unspecified Body mass index (BMI) 31.0-31.9, adult Caries Unspecified dental caries [facility]* Diagnosis Caries- Primary Unspecified dental caries [facility]* Diagnosis Alteration of awareness- Primary [facility] Diagnosis Caries- Primary Unspecified dental caries documented in this encounter [employer] Work Phone: Hospital course Narrative No data available for this section [facility] No data available for this section [facility] No data available for this section [facility] Summary Purpose Family History No Family [...] Referral Specialty Diagnoses / Procedures Referred By Contac t Referred To Contact Anesthesiology Diagnoses Caries Catalino Mccurdyth, DDS [address] [place] [address] [facility] PRE SURGICAL EVAL [address] [place] [address] Referral ID Status Reason Start Date Expiration Date V isits Requested Visits Authorized [id number] Pending Review 05/25/2023 05/25/2024 1 1 Scheduling Instructions Your surgical team will reach out to you to schedule a preadmission testing appointment. Question Answer Reason for consult? Recommended PSE Risk Score Specialty Diagnoses / Procedures Referred By Contac t Referred To Contact Radiology Diagnoses Pre-op exam Procedures XR CHEST PA+LAT 2 VIEWS Franc Beyer MD [address] [place] [address] [facility] DIAGNOSTIC RADIOLOGY [address] [place] [address] Referral ID Status Reason Start Date Expiration Date Visits Re quested Visits Authorized [id number] Closed 06/22/2023 06/21/2024 1 1 Specialty Diagnoses / Procedures Referred By Contac t Referred To Contact Cardiology Diagnoses Bradycardia History of autism Nonverbal Moderate intellectual disability Yobany Smith PA-C [address] [place] [address] [facility] CARDIOLOGY HV [address] [place] [address] Referral ID Status Reason Start Date Expiration Date V isits Requested Visits Authorized [id number] Pending Review 07/16/2023 07/16/2024 3 3 Scheduling Instructions Please call the [facility] at [phone] to schedule an appointment if one was [...] (HCC) Procedures CONSULT TO COLO-RECTAL SURGERY OFFICE/OUTPATIENT [facility] 60 MINUTES Victoria Sanchez APRN.STOCK PARTS FABRICATOR [address] [place] [address] Juventino Fairbanks MD [address] [place] [address] Referral ID Status Reason Start Date Expiration Date Visits Requested Visits Authorized [id number] Authorized PCP Requested Referral 12/20/2023 12/19/2024 1 1 Specialty Diagnoses / Procedures Referred By Contac t Referred To Contact Anesthesiology Diagnoses Caries Harpreet Mccurdy, DDS [address] [place] [address] [facility] PRE ADMISSION TESTING [address] [place] [address] Referral ID Status Reason Start Date Expiration Date V isits Requested Visits Authorized [id number] Authorized 10/10/2023 10/10/2024 1 1 Scheduling Instructions Your surgical team will reach out to you to schedule a pre-admission testing appointment. Question Answer Reason for consult? Recommended PAT Risk Score Additional Source Comments Reason for Visit (unrecogniz ed section and content) Reason Onset Date Comments Medical Record Review 03/29/2022 Reason Comments Cataract Evaluation Reason Comments Cataract Reason Comments Question Reason Comments REturned call Specialty Diagnoses / Procedures Referred By Contac t Referred To Contact Radiology Diagnoses Pre-op exam Procedures XR CHEST PA+LAT 2 VIEWS Franc Beyer MD [address] [place] [address] [facility] DIAGNOSTIC RADIOLOGY [address] [place] [address] Referral ID Status Reason Start Date Expiration Date Visits Re quested Visits Authorized [id number] Closed 06/22/2023 06/21/2024 1 1 Reason Onset Date Comments Pre-surgical Evaluation 06/26/2023 Informed Consent for dental surgery & Anesthesia consent obtained Reason Comments bradycardia Low HR (33) Specialty Diagnoses / Procedures Referred By Contac t Referred To Contact Ambulatory Surgery Diagnoses Caries Caries [[email or web address]] Procedures UNLISTED PROCEDURE, DENTOALVEOLAR STRUCTURES ANESTHESIA, INTRAORAL PROC, W/BX; NOS DENTAL RESTORATIONS Harpreet Mccurdy, ADOLFO [address] [place] [address] [facility]Tra[facility] [address] [place] [phone] Phone: [phone] Referral ID Status Reason Start Date Expiration Date Visits Re quested Visits Authorized [id number] 3 3 Reason Comments Cash Clerk - Other Reason Comments Post Op Reason Onset Date Comments Pre-surgical Evaluation 12/25/2023 DD adult dental restorations 12/27 under [place] [facility] [place]. CHRISTINA completed - consent request sent to main - see future encounter for results. CHRISTINA RN spoke to [facility], confirmed [facility], [place] address, and 0900 arrival time Reason Onset Date Comments Pre-surgical Evaluation 12/25/2023 Anesthes ia Attestaion for dental surgery scanned in web content & social media managerreservations manager Diagnoses / Procedures Referred By Contac t Referred To Contact Ambulatory Surgery Diagnoses Caries Caries [[id number]] Procedures UNLISTED PROCEDURE, DENTOALVEOLAR STRUCTURES ANESTHESIA, INTRAORAL PROC, W/BX; NOS DENTAL RESTORATIONS Mari Yi DMD [address] [place], [place] [id number] [facility]OSPITALPortable Medical TechnologySELECT [facility]ICAL [facility] SYSTEM [address] [place] [phone] Phone: [phone] Referral ID Status Reason Start Date Expiration Date Visits Re quested Visits Authorized [id number] 3 3 Reason Comments Seizures Care Teams (unrecognized sec tion and content) Payroll Auditor Relationship Specialty Start Date End Date Aileen Corcoran DDS [address] [place] [address] Resident Dentistry 08/20/20 Payroll Auditor Relationship Specialty Start Date End Date Aileen Corcoran DDS [address] [place] [address] Resident Dentistry 08/20/20 Payroll Auditor Relationship Specialty Start Date End Date Aileen Corcoran DDS [address] [place], [place] [id number] Resident Dentistry 08/20/20 Payroll Auditor Relationship Specialty Start Date End Date Aielen Corcoran DDS [address] [place], [place] [id number] Resident Dentistry 08/20/20 Payroll Auditor Relationship Specialty Start Date End Date Aileen Corcoran DDS [address] [place], [place] [id number] Resident Dentistry 08/20/20 Payroll Auditor Relationship Specialty Start Date End Date Aileen Corcoran DDS [address] [place], [place] [id number] Resident Dentistry 08/20/20 Payroll Auditor Relationship Specialty Start Date End Date Aileen Corcoran DDS [address] [place], [place] [id number] Resident Dentistry 08/20/20 Payroll Auditor Relationship Specialty Start Date End Date Aileen Corcoran DDS [address] [place], [place] [phone] Resident Dentistry 08/20/20 Payroll Auditor Relationship Specialty Start Date End Date Aileen Corcoran DDS [address] [place] [id number] Resident Dentistry 08/20/20 Payroll Auditor Relationship Specialty Start Date End Date Aileen Corcoran DDS [address] [place] [id number] Resident Dentistry 08/20/20 Payroll Auditor Relationship Specialty Start Date End Date Kendall Corcoranim ADOLFO [address] [place] [id number] Resident Dentistry 08/20/20 Payroll Auditor Relationship Specialty Start Date End Date ErynmarylinKendallim ADOLFO [address] [place] [id number] Resident Dentistry 08/20/20 Payroll Auditor Relationship Specialty Start Date End Date Kendall Corcoranim JENNIFERShira [address] [place] [id number] Resident Dentistry 08/20/20 Ling Coffman APRN-CNP [address] [place] [id number] [employer] An[facility] 01/19/24 Source Comments (unrecognize d section and content) In the event this informatio n is protected by the Federal Confidentiality of Alcohol and Drug Abuse Patient Records regulations: The Federal rules restrict any use of the information to criminally investigate or prosecute any alcohol or drug abuse patient.[facility] the event this information is protected by the Federal Confidentiality of Alcohol and Drug Abuse Patient Records regulations: The Federal rules restrict any use of the information to criminally investigate or prosecute any alcohol or drug abuse patient.[facility] the event this information is protected by the Federal Confidentiality of Alcohol and Drug Abuse Patient Records regulations: The Federal rules restrict any use of the information to criminally investigate or prosecute any alcohol or drug abuse patient.[facility] the event this information is protected by the Federal Confidentiality of Alcohol and Drug Abuse Patient Records regulations: The Federal rules restrict any use of the information to criminally investigate or prosecute any alcohol or drug abuse patient.[facility] the event this information is protected by the Federal Confidentiality of Alcohol and Drug Abuse Patient Records regulations: The Federal rules restrict any use of the information to criminally investigate or prosecute any alcohol or drug abuse patient.[facility] the event this information is protected by the Federal Confidentiality of Alcohol and Drug Abuse Patient Records regulations: The Federal rules restrict any use of the information to criminally investigate or prosecute any alcohol or drug abuse patient.[facility] the event this information is protected by the Federal Confidentiality of Alcohol and Drug Abuse Patient Records regulations: The Federal rules restrict any use of the information to criminally investigate or prosecute any alcohol or drug abuse patient.[facility] the event this information is protected by the Federal Confidentiality of Alcohol and Drug Abuse Patient Records regulations: The Federal rules restrict any use of the information to criminally investigate or prosecute any alcohol or drug abuse patient.[facility] the event this information is protected by the Federal Confidentiality of Alcohol and Drug Abuse Patient Records regulations: The Federal rules restrict any use of the information to criminally investigate or prosecute any alcohol or drug abuse patient.[facility] the event this information is protected by the Federal Confidentiality of Alcohol and Drug Abuse Patient Records regulations: The Federal rules restrict any use of the information to criminally investigate or prosecute any alcohol or drug abuse patient.[facility] (unrecognized sect ion and content) No Status Records FoundNo Status Records FoundNo Status Records FoundNo Status Records FoundNo Status Records FoundNo Status Records Found INFORMATION SOURCE (unrecogn ized section and content) DATE CREATED AUTHOR 01/26/2023 [facility] DATE CREATED AUTHOR AUTHOR'S ORGANIZ ATION 01/05/2024 [facility] [employer] [facility] DATE CREATED AUTHOR AUTHOR'S ORGANIZ ATION 01/13/2024 [facility] DATE CREATED AUTHOR AUTHOR'S ORGANIZ ATION 02/15/[address] [facility] DATE CREATED AUTHOR AUTHOR'S ORGANIZ ATION 02/22/[address] [facility] DATE CREATED AUTHOR AUTHOR'S ORGANIZ ATION 05/22/2024 [facility] EPIC Scheduled Active and Recently Administ ered Medications (unrecognized section and content) Medication Order 07/14/2023 07/15/2023 07/16/2023 lactated ringers iv bolus (COMPLETED) 1,000 mL, at 9,999 mL/hr, Intravenous, FLUID BOLUS, 1 dose, On 07/16/23 at [id number] (IV New Bag - P rovider: Jose Miguel Colbert RN)[id number] (IV Stop - Provider: Jose Miguel Colbert [...] socket sites after extraction) lidocaine-epinephrine (XYLOCAINE) 2 %-1:119884 injection (CANCELED) PRN, Starting on Sun12/28/23 at [...] BE BASED ON THE PRIMARY CLINICAL RECORDS. [employer] provides no warranty or guarantee of the accuracy or completeness of information in this document.
[2024-12-01 10:17] LABS: Valproic Acid 68.2 ug/mL (50.0-100.0)
[2024-12-02 04:08] LABS: Lithium (Eskalith(R)), Serum 0.8 mmol/L (0.5-1.2)
== END 2024-12-01 07:47 | disposition home or self-care (01) ==
LOC: LAB 07:47
PROVIDERS: PCP Family Medicine; Visit Provider Family Medicine
DX: F31.9 Bipolar disorder, unspecified (principal); Z79.899 Other long term (current) drug therapy; F42.9 Obsessive-compulsive disorder, unspecified
CPT/HCPCS: 36415; 80164; 80178

== ENCOUNTER 2025-01-01 06:44 | Outpatient (OUT) | payer MEDICARE, MEDICAID, SELFPAY ==
--- OUTSIDE RECORDS SUMMARY | 2025-01-01 06:46 | XMS_ITS | CCD ---
Author Organization [facility] CliniSyde Care Team Providers Care Car Stower Name Role Phone Jewell MATA, Gallagher Unavailable [...] Pollack Primary Care Unavailable CRANE, DR HERMAN oPllack Attending Unavailable CRANE, DR HERMAN Pollack Admitting [...] Pollack Consulting Unavailable Jewell MATA, Gallagher Unavailable [phone] HERMAN CRANE Primary Care Physician Unavailable Primary Care Provider Unavailabl e Unavailable Primary Care Provider Unavailabl e RONALD PHOENIX D Referring Unavailable BESAMUEL MONROY Admitting Unava ilable ELIU GAN Attending Unavailable CHEHROUOSCAR GUPTA Attending Unavailable DANIELVICTORIA Attending Unavailable CRANE, HERMAN Attending Unavailable CRANE, HERMAN Admitting Unavailable CRANE, HERMAN Admitting Unavailable CRANE, HERMAN Attending Unavailable CRANE, HERMAN Attending Unavailable CRANE, HERMAN Admitting Unavailable Markiv BLOCK PILER-BUILDING RIGGER, Ling Unavailable Unavailable Primary Care Provider Unavailabl e Unavailable Primary Care Provider Unavailabl e YUKO, EPIFANIO Attending Unavailable BENEDICT, EPIFANIO Referring Unavailable LOWE, CRIS Attending Unavailable LOWE, CRIS Attending Unavailable LOWE, CRIS Attending Unavailable KASSIDY, MARI Referring Unavailable KASSIDY, MARI Attending Unavailable KASSIDY, MARI Admitting Unavailable WAKELING, RYAN Admitting Unavailable WAKELING, RYAN Attending Unavailable WAKELING, RYAN Admitting Unavailable MARKIV, LING Attending Unavailable WAKELING, RYAN Admitting Unavailable KASSIDY, MARI Attending Unavailable Allergies Allergy Classification Reported Allergen(s) Allergy Type Date of Onset Reaction(s) Facility Macrolides (antibiotic) (1 source) Clarithromycin Drug Allergy 05-04-20 Other: See Comments [facility] (20 sources) Clarithromycin; Translations: [CLARITHROMYCIN] Propensity to adverse reactions to drug 06-12-20 18 Other [facility] Work Phone: (9 sources) Clarithromycin Drug Allergy 05-04-20 Other: See Comments [facility] (1 source) Clarithromycin Drug Allergy [facility] Repository Medications Current Medications Medication Drug Class(es) Dates Sig (Normalized) Sig (Original) acetaminophen 500 mg oral tablet (6 sources) Start: 12-28-2023 take 1 tablet by [...] Drop (FLURESS) benzonatate 100 mg oral capsule (6 sources) Non-narcotic Antitussive take 1 capsule by mouth three times daily as needed for cough benzonatate (Tessalon) 100 MG capsule Take 100 mg by mouth 3 (three) times a day as needed for cough Do not crush or chew. Active bisacodyl 10 mg rectal suppository (14 sources) Stimulant Laxative Start: 08-23-2023 End: 12-03-2023 [...] route once daily. 12 hr buPROPion hydrochloride 200 mg extended release oral tablet (5 sources) Aminoketone take 1 tablet by mouth every twelve hours in the morning buPROPion SR (Wellbutrin SR) 200 MG 12 hr tablet Take 200 mg by mouth in the morning and 200 mg before bedtime. Active take 1 tablet by mouth once lainey y buPROPion SR (Wellbutrin SR) 100 MG 12 hr tablet Take 100 mg by mouth Daily Active calcium carbonate 1250 mg / cholecalciferol 200 unt oral tablet (20 sources) Vitamin D Start: 11-25-2024 take 1 tablet by mouth in the morning, then take 1 tablet by mouth once at bedtime Calcium Carb-Cholecalciferol (Oyster Shell Calcium w/D) 500-5 MG-MCG tablet Take 1 tablet by mouth in the morning and 1 tablet before bedtime. 11/25/2024 Active Start: 01-13-2021 take 1 tablet by linda th twice daily Calcium Carbonate-Vitamin D (Oyster Shell Calcium/D) 500-200 MG-UNIT TABS Take 1 Tablet by mouth 2 times daily. 01/13/2021 Active Comment on above: Take 1 tablet by linda th twice daily. Calcium Carbonate-Vitamin D (Oyster Shell Calcium/D) 500-200 MG-UNIT TABS (2 sources) Start: 01-14-20 21 take 1 tablet by mouth twice daily Calcium Carbonate-Vitamin D (Oyster Shell Calcium/D) 500-200 MG-UNIT TABS Take 1 Tablet by mouth 2 times daily. 01/13/2021 Active chlorhexidine gluconate 1.2 mg/ml mouthwash (5 sources) Start: 12-28-19 24 chlorhexidine (Peridex) 0.12 % oral solution Swish and expectorate twice a day. Do not swallow 473 mL 12/28/2023 11:19 AM EDT 12/28/2023 Active clomiPRAMINE hydrochloride 75 mg oral capsule (20 sources) Tricyclic Antidepressant Start: 04-27-20 End: 12-28-19 24 clomiPRAMINE (ANAFRANIL) 75 mg capsule cloNIDine hydrochloride 0.2 mg oral tablet (20 sources) Central alpha-2 Adrenergic Agonist Start: 11-07-19 24 take 1 tablet by mouth three times [...] 1 ml denosumab 60 mg/ml prefilled syringe (12 sources) RANK Ligand Inhibitor Start: 023 inject 60 mg by subcutaneous injection once denosumab (PROLIA) 60 mg/mL Inject 60 mg subcutaneously one time only. 0 02/14/2023 Active Comment on above: Inject 60 mg subcuta neously one time only. docusate sodium 100 mg oral capsule (19 sources) take 1 capsule by mouth twice daily docusate sodium (COLACE) 100 MG capsule Take 100 mg by mouth 2 times daily. Active famotidine 20 mg oral tablet (20 sources) Histamine-2 Receptor Antagonist Start: 022 famotidine (PEPCID) 20 mg tablet fluticasone propionate 0.05 mg/actuat metered dose nasal spray (20 sources) Corticosteroid Start: 022 take 2 spray(s) nasal route once [...] nce daily. ibuprofen 600 mg oral tablet (5 sources) Nonsteroidal Anti-inflammatory Drug Start: 12-28-19 24 [...] day. 1999 loratadine 10 mg oral tablet (12 sources) loratadine (Clar itin) 10 MG tablet Take by mouth Active take 1 capsule by mo [facility] once daily at bedtime loratadine 10 mg [...] on above: TAKE ONE TABLET BY M OUT 3 TIMES DAILY ATIVAN metoprolol tartrate 50 mg oral tablet (20 sources) beta-Adrenergic Antony Start: 01-22-20 21 metoprolol (LOPRESSOR) 50 MG tablet 01/21/2021 Active montelukast 10 mg oral tablet (17 sources) Leukotriene Receptor Antagonist take 1 tablet by mouth once daily montelukast (SINGULAIR) 10 MG tablet Take 10 mg by mouth daily. Active Comment on above: Take 10 mg by mouth daily at bedtime. mupirocin 0.02 mg/mg topical ointment (6 sources) RNA Synthetase Inhibitor Antibacterial mupirocin (Bactroban) 2 % ointment Apply 1 application topically in the morning and 1 application in the evening and 1 application before bedtime. Active naloxone hydrochloride 40 mg/ml nasal spray (5 sources) Opioid Antagonist Start: 12-28-19 24 naloxone 4 mg/0.1 mL nasal liquid Use 1 [place] in one nostril (alternate sides) as needed [...] a day. ondansetron 4 mg oral tablet (6 sources) Serotonin-3 Receptor Antagonist take 1 tablet by mouth every eight hours as needed for nausea and vomiting ondansetron (Zofran) 4 MG tablet Take 1 tablet by mouth every 8 (eight) hours if needed for nausea or vomiting Active polyethylene glycol 3350 60045 mg powder for oral solution (20 sources) Osmotic Laxative Start: 1 End: 4 polyethylene glycol 3350 (MIRALAX, GLYCOLAX) 17 gram/dose powder Take 17 g by mouth once daily. 0 03/21/2022 Active Comment on above: TAKE 17G WITH LIQUID BY MOUTH DAILY IN THE MORNING Take 17 g by mouth o nce daily. POLYETHYLENE GLYCOL EXTERNAL (5 sources) Start: 4 take 17 g by [...] t wo times a day. 1999 sennosides, senior living 8.6 mg oral capsule (20 sources) Sennosides [...] sodium 125 mg delayed release oral capsule (20 sources) Mood Stabilizer, Anti-epileptic Agent Start: 12-12-2023 divalproex (DEPAKOTE SPRINKLE) 125 MG CSDR capsule 125 mg 2 times daily. 12/12/2023 Active take 4 tablets by mouth in the m orning divalproex (Depakote) 125 MG EC tablet Take 4 tablets by mouth in the morning and 4 tablets before bedtime. Do not crush, chew, or split. 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; Translations: [OTH CUSTODIAL CURRENT DRUG THERAPY] Onset: 12-04-19 Episodic Other [...] Obese class I; Translations: [Obesity, unspecified] Onset: 11-02-19 24 11-05-2023 Chronic Other nutritional; endocrine; and metabolic disorders (2 sources) Body mass index 30+ - obesity; Translations: [Body mass index (BMI) 31.0-31.9, adult] 12-19-2023 Chronic Other nutritional; endocrine; and metabolic disorders (1 source) Body mass index (BMI) 31.0-31.9, adult; Translations: [Body mass index (BMI) 31.0-31.9, adult] Onset: 12-19-19 Chronic Other screening for suspected conditions (not mental disorders or infectious disease) (2 sources) Other specified abnormal findings of blood chemistry; Translations: [Patient encounter status] Onset: 07-07-2012-03-2023 Episodic Residual codes; unclassified (1 source) Disorientation, unspecified; Translations: [DISORIENTATION UNSPECIFIED] Onset: 12-04-19 Episodic Residual codes; unclassified (6 sources) History of laparoscopy; Translations: [Other specified postprocedural states] Onset: 11-05-19 24 11-05-2023 Episodic Residual codes; unclassified (10 sources) Lack of awareness; Translations: [Unspecified symptoms [...] (20 sources) Hypothyroidism; Translations: [Hypothyroidism, unspecified] Onset: 09-16-19 19 07-15-2019 Chronic Past or Other Problems Problem Classification Problem Date Documented Da te Episodic/Chronic Cardiac dysrhythmias (10 sources) Bradycardia; Translations: [Bradycardia, unspecified] Onset: 09-20-2023 07-16-2023 Episodic Diseases of mouth; excluding dental (19 sources) Mucocele of lower lip; Translations: [Diseases of lips] Onset: 10-16-2019 06-07-2020 Episodic Disorders of teeth and jaw (20 sources) Dental caries; Translations: [Dental caries, unspecified] Onset: 06-11-2018 Resolved: 12-28-2023 06-11-2018 Episodic Other gastrointestinal disorders (18 sources) Chronic constipation; Translations: [Other constipation] Onset: 09-16-2018 07-13-2020 Episodic Other gastrointestinal disorders (1 source) Constipation, unspecified Onset: 09-16-2018 07-13-2020 Episodic Other skin disorders (18 sources) Eruption; Translations: [Rash and other nonspecific skin eruption] Onset: 09-16-2018 07-13-2020 Episodic Other skin disorders (1 source) Rash and other nonspecific skin eruption Onset: 09-16-2018 07-13-2020 Episodic Results Test Name Value Interpretation Reference Range Facility CHEMISTRYOrdered By: SYSTEM SYSTEM on 02-13-2024 Valpro Acid Lvl 98 microgram/mL Normal 50 - 99 mcg/mL Remisol Chem Physician Orderon 02-13-2024 Physician Order [id number]# 1.00TIFF Normal [facility] Valproic Acidon 02-13-2024 Valpro Acid Lvl 98 microgram/mL Normal 50-99 Fish er [facility] Comment on above: Performed By: #### 2 [id number] #### [facility] [address] [place] [address] [facility] 01-11-2024 VÍCTORN Telephone (PATRICK) JOHNNY DEVINE ([id number]) 1990 M Date Time Provider Department 01/11/24 CRIS DINH During your visit today, we recorded the following information about you: Cris Dinh, RN 01/11/2024 1:50 PM Signed Jessica from [facility] [phone] is caller. 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 Normal [facility] Anesthesia Preprocedure Eval nikolai 12-28-2023 Artificial Candy Maker Authentication Interface Message Text ASA: 3 NPO [...] and physical examination. Attestation: MHPATFORM Normal [facility] Anesthesia Transfer Of Careo n 12-28-2023 Artificial Candy Maker Authentication Interface Message Text Patient taken to [...] DENTAL RESTORATIONS; Surgeon: Harpreet Mccurdy DDS; Location: [facility]; Service: Dental Allergies: Biaxin [clarithromycin] Basic Operating Room Facts: Surgeon(s): Mari Traore DMD Anesthesiologist: Linda Saldivar MD BRUSH MACHINE SETTER: Selena Camacho APRN-CRNA DENTAL RESTORATIONS (Bilateral: Mouth) [...] [phone] Comment: The [place] Diabetes Association (ADA) provides guidance for cutoff [...] Standards of Medical Care in Diabetes 2016, [place] Diabetes Association. Diabetes Care. 2016.39(Suppl 1). 8 0.70 8.2 11/06/23 [phone] Comment: The [place] Diabetes Association (ADA) provides guidance for cutoff [...] Standards of Medical Care in Diabetes 2016, [place] Diabetes Association. Diabetes Care. 2016.39(Suppl 1). 6 0.69 8 (more content not included)... Normal [facility] Blood Attestationon 12-28-19 Artificial Candy Maker Authentication Interface Message Text Blood Attestation: ATTESTATION OF INFORMED CONSENT FOR BLOOD: The transfusion of blood and/or blood components were discussed with the patient and/or legal freight representative. The risks, benefits and alternatives were reviewed. Questions regarding blood transfusions were answered. The patient /or the patient's legal freight representative agree with the plan for transfusion of blood and/or blood components. Normal [facility] Brief Operative Noteon 12-27 Artificial Candy Maker Authentication Interface Message Text Brief Operative Note PHE OR 3 Johnny Devine 33 year old male Surgical Contact Serial Number: [id number] Preoperative Diagnosis: Pre-op Diagnosis * Caries [K02.9] Moderate intellectual disability [F79] Postoperative Diagnosis: Moderate intellectual disability [F79] Procedures: Comprehensive exam [21156] Full mouth X-ray [ 32757] Extractions [20960] Restorations [68596] Prophy 26349] Fluoride treatment [98379] Surgeon(s): Surgeon(s): aMri Traore DMD Staff: Reservoir Engineer Nurse: Henrietta Johnson Anesthesia: General Anesthesia Staff: [...] No, Clinical indication for admission: Dr. Mari Traore DMD was present in the OR for the critical portion of the procedure and procedure sign-out. Signed by Reema Whiting DDS 12/28/2023 1;48 pm Normal [facility] OP Noteon 12-28-2023 Artificial Candy Maker Authentication Interface Message Text Surgical Case Number Data Unavailable Operating Room Data Unavailable Preoperative Diagnosis(es): Pre-op Diagnosis * Caries [K02.9] Moderate intellectual disability [F79] Postoperative Diagnosis(es): Moderate intellectual disability[F79] @ENCORD@ Surgeon: Dr. Mari Traore DMD Shipping Associate Surgeon: Reema Whiting DDS Anesthesia: General- Nasal [...] 4 mg/0.1 mL nasal liquid Use 1 [place] in one nostril (alternate sides) as needed [...] Dictated by: Reema Whiting DDS: Dr. Mari Traore, DMD was present for the critical portions of the procedure. Reema Whiting DDS 12/28/2023 1:53 pm Normal [facility] Progress Noteson 12-28-2023 Artificial Candy Maker Authentication Interface Message Text Patient takes his seizure medication with pudding, facility held them today for dental surgery. Caregiver brought capsules with them to pre-op. Per Dr. Saldivar, divalproex 125 mg x 4 capsules (500 mg) were opened and sprinkles given to patient with 50 mL of water in pre-op. 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 MB cusp tip was visualized upon extraction of #17, but well encased in bone and would not be exposed to the oral cavity following healing of the extraction site. Preoperative Diagnosis(es): Pre-op Diagnosis * Caries [K02.9] Moderate intellectual disability [F79] Postoperative Diagnosis(es): Moderate intellectual disability[F79] Surgeon: Dr. Mari Traore, ANIYAH Shipping Associate Surgeon: Reema Whiting DDS Anesthesia: General- Nasal [...] at end of surgery: Stable Normal [facility] PAT Appt H DESTINY Hawkins Artificial Candy Maker Authentication Interface Message Text Addendum 12/21/2023- Caregiver @ [facility] facility called to relay that patient unable to take medications without pudding. Per Dr. Newell: Instruct them to take the meds at night. Please then coordinate with either the anesthesia team or surgical team to order IV depacon so he can get his depakote. I would have the facility bring his oral depakote for after surgery If they can't get the depacon at [place] PAT RN updated nursing staff @ [facility]. Normal [facility] BASIC METABOLIC PANELon 05-0 Anion gap [Moles/Vol] 13 mmol/L Normal 10-[address] [facility] Comment on above: Performed By: #### C H8 ####S PATHOLOGY [id number] [place], [place], Calcium [Mass/Vol] 9.9 mg/dL Normal 8.6-10.[address] Comment on above: Performed By: #### C H8 ####S PATHOLOGY [id number] [place], [place], Chloride [Moles/Vol] 106 mmol/L Normal 98-[address] [facility] Comment on above: Performed By: #### C H8 ####S PATHOLOGY [id number] [place], [place], CO2 [Moles/Vol] 25 mmol/L Normal 21-[address] [facility] Comment on above: Performed By: #### C H8 ####[facility] PATHOLOGY [id number] [place], [place], Creatinine [Mass/Vol] 0.93 mg/dL Normal 0.70-1.[address] [facility] Comment on above: Performed By: #### C H8 ####S PATHOLOGY [id number] [place], [place], ESTIMATED GFR (CKD-EPI) 113 mL/min/1.73sqm Normal >=[address] [facility] Comment on above: Result Comment: 2020 [...] Inclusion of Race in Diagnosing Kidney Disease. [place] Journal of Kidney Diseases 2021;79(2):268-88.e1. 2. N Engl J Med 2020 Vol. 385 Issue 19 Pages [phone] Performed By: #### C H8 ####[facility] PATHOLOGY [id number] [place], [place], Glucose [Mass/Vol] 115 mg/dL High 74-[address] [facility] Comment on above: Performed By: #### C H8 ####[facility] PATHOLOGY [id number] [place], [place], Potassium [Moles/Vol] 4.6 mmol/L Normal 3.5-5.0 [facility] Comment on above: Performed By: #### C H8 ####S PATHOLOGY [id number] [place], [place], Sodium [Moles/Vol] 139 mmol/L Normal 136-145 [facility] Comment on above: Performed By: #### C H8 ####[facility] PATHOLOGY [id number] [place], [place], Urea nitrogen [Mass/Vol] 15 mg/dL Normal 7-25 [facility] Comment on above: Performed By: #### C H8 ####[facility] PATHOLOGY [id number] [place], [place], Basic metabolic 2000 panelon 12-19-2023 Anion [...] Inclusion of Race in Diagnosing Kidney Disease. [place] Journal of Kidney Diseases 2021;79(2):268-88.e1. 2. N Engl J Med 1 Vol. 385 Issue 19 Pages 7442-4214 Glucose [Mass/Vol] 115 mg/dL High 74 - 109 mg/dL [facility] Interpretation and review of laboratory results Abnormal [facility] Potassium [Moles/Vol] 4.6 mmol/L 3.5 - 5.0 mmol/L [facility] Sodium [Moles/Vol] 139 mmol/L 136 - 145 mmol/L [facility] Urea nitrogen [Mass/Vol] 15 mg/dL 7 - 25 mg/dL [facility] PAT Appt H AND Ross Artificial Candy Maker Authentication Interface Message Text Patient was identified by name and date of . Jaswinder Arredondo Patient at risk for falls:No Falls Risk protocol implemented: N/A Normal [facility] Patient Instructionson 12-18 Artificial Candy Maker Authentication Interface Message Text [facility] staff: Since patient is unable to take [...] for pain. Please hold all Vitamin E, Buckner 3, fish oil and herbal supplements for 1 week prior to surgery. Please use this LIST to prepare for your surgery/procedure: ? Assume that any lab or testing done during your Pre-admission testing appointment is within normal limits unless otherwise contacted. ? Expect a call from [facility] one business day prior to surgery for [...] your Preparing for Your Surgery/Procedure booklet or [email or web address] if you have questions. Contact the Pre-Admission Testing department at [phone] or your surgeon's office with any questions [...] stay with you after surgery. Please call [employer] Work if you need transportation assistance or have concerns about going home [phone]. ? SLEEP APNEA PATIENTS: Bring your sleep apnea machine and mask. ? PLEASE BE ON TIME. A late arrival may result in the cancellation/ delay of your surgery. Thank you for choosing [facility]; it is our pleasure to care for you Normal The [facility] 12-03-2023 [facility] Office Visit (UROLMN ) JOHNNY DEVINE ([id number]) 1990 M Date Time Provider Department 12/03/23 1:00 PM OSCAR RUIZ URON During your visit today, we recorded the [...] 12/03/2023 Noted Resolved SBO (small bowel obstruction) ([facility]) [K56.609] 10/28/2023 10/31/2023 Bipolar disorder (HCC) [F31.9] 09/16/2018 Hypothyroidism [E03.9] 09/16/2018 Obsessive-compulsive disorder [F42.9] 09/16/2018 Moderate intellectual disability [F71] 09/16/2018 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] Obesity, Class I, BMI 30-34.9 [E66.9] 11/02/2023 S/P laparoscopy [Z98.890] 11/05/2023 Acute postoperative pain [G89.18] 11/05/2023 Oropharyngeal dysphagia [R13.12] 11/06/2023 Epilepsy ([facility]) [G40.909] 11/06/2023 Level of Service: OFFICE/OUTPATIENT EST PT MAY NOT REQ PHYS/QHP [26065] LOS History for Encounter Encounter Status:Closed by OSCAR RUIZ on 12/03/23 [facility] Teresita 11-28-2023 CNOV Office Visit (CORTEZ ) JOHNNY DEVINE ([id number]) 1990 M Date Time Provider Department 11/28/23 [...] Victoria Sanchez APRN.CNP 11/28/2023 10:19 AM Signed [facility] Clinic Date: November 28, 2023 Johnny Devine 33 year old male CHIEF COMPLAINT: Patient presents for follow up from surgery. HPI: Here for follow up after diagnostic laparotomy on 10/29/[address] Robin. Patient also underwent a dorsal slit procedure with urology on 10/30/2023 for paraphimosis. Patient with a ladle cleaner today to discuss his postoperative course since [...] ICD10: Z48.89 (more content not included)... [facility] C[facility]N Tele[facility] (Topsy LabsN) JOHNNY DEVINE ([id number]) 1990 [place] Date Time Provider Department 11/12/23 [...] Dr. Robin. Included point ppl on communication (Anna) along with Katherine as she will be covering Dr. [place] clinic 11/22/2023. No further needs at present time. Office line given. 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] Prescriptions as of 11/12/2023 - cloNIDine HCl [...] 11/12/2023 Noted Resolved SBO (small bowel obstruction) ([facility]) [K56.609] 10/28/2023 10/31/2023 Bipolar disorder ([facility]) [F31.9] 09/16/2018 Hypothyroidism [E03.9] 09/16/2018 Obsessive-compulsive disorder [F42.9] 09/16/2018 Moderate intellectual disability [F71] 09/16/2018 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] Obesity, Class I, BMI 30-34.9 [E66.9] 11/02/2023 S/P laparoscopy [Z98.890] 11/05/2023 Acute postoperative pain [G89.18] 11/05/2023 Oropharyngeal dysphagia [R13.12] 11/06/2023 Epilepsy ([facility]) [G40.909] 11/06/2023 Encounter Status:Closed by CRIS DINH on 11/12/23 Normal [facility] Basic metabolic 2000 panelon 11-07-2023 Anion gap [Moles/Vol] 10 mmol/L Normal 9-18 [facility] Comment on above: Order Comment: Speci men Type: BLOOD SPECIMEN Ordering Facility: [facility] Address: [address] [place] [address] Performed By: #### 2 4321-2, 14191-4, 2777- #### [facility] CLIA [id number] [address] [place] [address] [place] Calcium [Mass/Vol] 8.2 mg/dL Low 8.5-10.2 [facility] Comment on above: Order Comment: Speci men Type: BLOOD SPECIMEN Ordering Facility: [facility] Address: [address] [place] [address] Performed By: #### 2 4321-2, 64979-1, 2777-1 #### [facility] CLIA [id number] [address] [place] [address] [place] Chloride [Moles/Vol] 110 mmol/L High 97-105 [facility] Comment on above: Order Comment: Speci men Type: BLOOD SPECIMEN Ordering Facility: [facility] Address: [address] [place] [address] Performed By: #### 2 4321-2, 80520-8, 2777-1 #### [facility] CLIA [id number] [address] [place] [address] [place] CO2 [Moles/Vol] 21 mmol/L Low 22-30 [facility] Comment on above: Order Comment: Speci men Type: BLOOD SPECIMEN Ordering Facility: [facility] Address: [address] [place] [address] Performed By: #### 2 4321-2, 71875-1, 2777-1 #### [facility] CLIA [id number] [address] [place] [address] [place] Creatinine [Mass/Vol] 0.70 mg/dL Low 0.73-1.22 [facility] Comment on above: Order Comment: Speci men Type: BLOOD SPECIMEN Ordering Facility: [facility] Address: [address] [place] [address] Performed By: #### 2 4321-2, 88149-7, 2777-1 #### [facility] CLIA [id number] [address] [place] [address] [place] Creatinine and Glomerular filtration rate.predicted panel (S/P/Bld) 126 mL/min/1.73m??? Normal >=60 [facility] Comment on above: Order Comment: Speci men Type: BLOOD SPECIMEN Ordering Facility: [facility] Address: [address] [place] [address] Result Comment: Lor mated Glomerular Filtration Rate [...] By: #### 2 4321-2, , 2776-08 #### [facility] CLIA [id number] [address] [place] [id number] [place] Glucose [Mass/Vol] 91 mg/dL Normal 74-99 [facility] Comment on above: Order Comment: Sana zuñiga Type: BLOOD SPECIMEN Ordering Facility: [facility] Address: [address] [place] [address] Result Comment: The [place] [employer] (ADA) provides guidance for cutoff [...] Standards of Medical Care in Diabetes 2016, [place] [employer]. Diabetes Care. 2016.39(Suppl 1). Performed By: #### 2 1-2, , 2776-08 #### [facility] CLIA [id number] [address] [place], [place] [address] [place] Potassium [Moles/Vol] 4.4 mmol/L Normal 3.7-5.1 [facility] Comment on above: Order Comment: Sana zuñiga Type: BLOOD SPECIMEN Ordering Facility: [facility] Address: [address] [place] [address] Performed By: #### 2 4321-2, , 2776-08 #### [facility] CLIA [id number] [address] [address] [place] Sodium [Moles/Vol] 141 mmol/L Normal 136-144 [facility] Comment on above: Order Comment: Speci men Type: BLOOD SPECIMEN Ordering Facility: [facility] Address: [address] [place] [address] Performed By: #### 2 4321-2, 83649-8, 27702-17 #### [facility] CLIA [id number] [address] [place] [address] [place] Urea nitrogen [Mass/Vol] 8 mg/dL Low 9-24 [facility] Comment on above: Order Comment: Speci men Type: BLOOD SPECIMEN Ordering Facility: [facility] Address: [address] [place] [address] Performed By: #### 2 4321-2, , 2776-08 #### [facility] CLIA [id number] [address] [place] [address] [place] CBC panel Auto (Bld)on 11-06 Erythrocyte distribution width (RBC) [Ratio] 15.1 % High 11.5-15.0 [facility] Comment on above: Order Comment: Speci men Type: BLOOD SPECIMENOrdering Facility: [facility] Address: [address] [place] [address] Performed By: #### 5 8410-2 ####[facility] [id number] [place] [address] [place] Hematocrit (Bld) [Volume fraction] 31.4 % Low 39.0-51.0 [facility] Comment on above: Order Comment: Speci men Type: BLOOD SPECIMENOrdering Facility: [facility] Address: [address] [place] [address] Performed By: #### 5 8410-2 ####[facility] [id number] [place] [address] [place] Hemoglobin (Bld) [Mass/Vol] 9.9 g/dL Low 13.0-17.0 [facility] Comment on above: Order Comment: Speci men Type: BLOOD SPECIMENOrdering Facility: [facility] Address: [address] [place] [address] Performed By: #### 5 8410-2 ####[facility] [id number] [place] [address] [place] MCH (RBC) [Entitic mass] 27.3 pg Normal 26.0-34.0 [facility] Comment on above: Order Comment: Speci men Type: BLOOD SPECIMENOrdering Facility: [facility] Address: [address] [place] [address] Performed By: #### 5 8410-2 ####[facility] [id number] [place] [address] [place] MCHC (RBC) [Mass/Vol] 31.5 g/dL Normal 30.5-36.0 [facility] Comment on above: Order Comment: Speci men Type: BLOOD SPECIMENOrdering Facility: [facility] Address: [address] [place] [address] Performed By: #### 5 8410-2 ####[facility] [id number] [place] [address] [place] MCV (RBC) [Entitic vol] 86.5 fL Normal 80.0-100.0 [facility] Comment on above: Order Comment: Speci men Type: BLOOD SPECIMENOrdering Facility: [facility] Address: [address] [place] [address] Performed By: #### 5 8410-2 ####[facility] [id number] [place] [address] [place] Nucleated RBC (Bld) [#/Vol] 10*3/uL Normal <0.01 [facility] Comment on above: Order Comment: Speci men Type: BLOOD SPECIMENOrdering Facility: [facility] Address: [address] [place] [address] Performed By: #### 5 8410-2 ####[facility] [id number] [place] [address] [place] Platelet mean volume (Bld) [Entitic vol] 9.4 fL Normal 9.0-12.7 [facility] Comment on above: Order Comment: Speci men Type: BLOOD SPECIMENOrdering Facility: [facility] Address: [address] [place] [address] Performed By: #### 5 8410-2 ####[facility] [id number] [place] [address] [place] Platelets (Bld) [#/Vol] 215 10*3/uL Normal 150-400 [facility] Comment on above: Order Comment: Speci men Type: BLOOD SPECIMENOrdering Facility: [facility] Address: [address] [place] [address] Performed By: #### 5 8410-2 ####[facility] [id number] [place] [address] [place] RBC (Bld) [#/Vol] 3.63 10*6/uL Low 4.20-6.00 [facility] Comment on above: Order Comment: Speci men Type: BLOOD SPECIMENOrdering Facility: [facility] Address: [address] [place] [address] Performed By: #### 5 8410-2 ####[facility]IA [id number] [place] [address] [place] WBC (Bld) [#/Vol] 8.67 10*3/uL Normal 3.70-11.00 [facility] Comment on above: Order Comment: Speci men Type: BLOOD SPECIMENOrdering Facility: [facility] Address: [address] [place] [address] Performed By: #### 5 8410-2 ####[facility] [id number] [place] [address] [place] CNCOon 11-07-2023 CNCO Letter Text Normal [facility] CNDSon 11-07-2023 CNDS HNO ID: [id number] Author: SAMUEL ROBIN MD Service: General Surgery [...] PSH who presents as a transfer to [facility] from OSH ED for further management of small bowel obstruction. Given patient's baseline cognitive status, NGT difficult to maintain. He was admitted to the [facility] under care of general surgery and was taken to the OR the following morning for diagnostic laparoscopy. Intra-operative findings demonstrated no adhesins, no apparent hernias, dilated small/large bowel, redundant sigmoid c/f volvulus, easily reduced. After recovering in the PACU, he was taken to the [facility] with NGT in place. Patient arrived to [facility] with 8 Fr pediatric haskins catheter in [...] in home regimen. Stable for discharge to skilled nursing. Neurology Recommendations on Discharge: - Discharge on anti-epileptic medications as prescribed - Please schedule outpatient follow-up with epilepsy - Please order outpatient MRI without contrast (3T epilepsy protocol) to be done prior to epilepsy appointment Active Hospital Problems Diagnosis Date Noted Oropharyngeal dysphagia 11/06/2023 Epilepsy ([facility]) 11/06/2023 S/P laparoscopy 11/05/2023 Acute postoperative pain 11/05/2023 Obesity, Class I, BMI 30-34.9 11/02/2023 Developmental non-verbal disorder Obsessive-compulsive disorder 09/16/2018 Moderate intellectual disability 09/16/2018 Hypothyroidism 09/16/2018 Bipolar disorder ([facility]) 09/16/2018 Resolved Hospital Problems Diagnosis Date Noted Date Resolved SBO (small bowel obstruction) ([facility]) 10/28/2023 10/31/2023 Transitions of Care Critical Issues: Follow up with Dr. Fairbanks MRI as outpatient and follow up with Neurology in 2 weeks LABS AND PROCEDURES PENDING AT DISCHARGE: No pending results. CONSULTING TEAMS DURING HOSPIT (more content not included)... Normal [facility] CONSULT PROGon 11-07-2023 CONSULT PROG HNO ID: [id number] Author: BRUCE RESENDIZ MD Service: Neurology General [...] November 06, 2023 TIME: 8:36 AM Normal [facility] Magnesium SerPl-mCncon 11-06 Magnesium [Mass/Vol] 2.1 mg/dL Normal 1.7-2.3 [facility] Comment on above: Order Comment: Speci men Type: BLOOD SPECIMEN Ordering Facility: [facility] Address: [address] [place] [address] Performed By: #### 2 4321-2, 03507-2, 2777-1 #### [facility] CLIA [id number] [address] [place] [address] [place] NURSING PROGon 11-07-2023 NURSING PROG HNO ID: [id number] Author: MAYANK READ, RN Service: Nursing Author Type: Registered Nurse Type: Nursing Progress Note Filed: 11/07/2023 14:53 Note Text: Pt is discharged to a skilled nursing, dietary supervisor Magi just arrived to garbage pick up worker. Reviewed discharge paper works and handed it to the dietary supervisor. IV removed, pt tolerated. EEG removed by renal technician. Normal [facility] NUTRITIONon 11-07-2023 NUTRITION HNO ID: [id number] Author: RAFAELA COOL DTR Service: Nutrition Therapy Author Type: [employer] Heavy Service Type: Nutrition Filed: 11/07/2023 13:38 Note Text: NUTRITION THERAPY LEVER MILLER NOTE SERVICE DATE: 11/07/2023 SERVICE TIME: 999 Visit Type: Follow-Up Evaluation Goals Met: Met [...] November 07, 2023 TIME: 1:38 PM Normal [facility] Phosphate SerPl-mCncon 11-06 Phosphate [Mass/Vol] 4.1 mg/dL Normal 2.7-4.8 [facility] Comment on above: Order Comment: Speci men Type: BLOOD SPECIMEN Ordering Facility: [facility] Address: [address] [place] [address] Performed By: #### 2 4321-2, , 2776-08 #### [facility] CLIA [id number] [address] [place] [address] [place] Basic metabolic 2000 panelon 11-06-2023 Anion gap [Moles/Vol] 16 mmol/L Normal 9-18 [facility] Comment on above: Order Comment: Speci men Type: BLOOD SPECIMEN Ordering Facility: [facility] Address: [address] [place] [address] Performed By: #### 2 4321-2, , 2776-08 #### [facility] CLIA [id number] [address] [place] [address] [place] Calcium [Mass/Vol] 8.9 mg/dL Normal 8.5-10.2 [facility] Comment on above: Order Comment: Speci men Type: BLOOD SPECIMEN Ordering Facility: [facility] Address: [address] [place] [address] Performed By: #### 2 4321-2, 29276-8, 2776- #### [facility] CLIA [id number] [address] [place] [address] [place] Chloride [Moles/Vol] 112 mmol/L High 97-105 [facility] Comment on above: Order Comment: Speci men Type: BLOOD SPECIMEN Ordering Facility: [facility] Address: [address] [place] [address] Performed By: #### 2 4321-2, 39819-9, 2777-1 #### [facility] CLIA [id number] [address] [place] [address] [place] CO2 [Moles/Vol] 18 mmol/L Low 22-30 [facility] Comment on above: Order Comment: Speci men Type: BLOOD SPECIMEN Ordering Facility: [facility] Address: [address] [place] [address] Performed By: #### 2 4321-2, 87235-8, 2777-1 #### [facility] CLIA [id number] [address] [place] [address] [place] Creatinine [Mass/Vol] 0.69 mg/dL Low 0.73-1.22 [facility] Comment on above: Order Comment: Speci men Type: BLOOD SPECIMEN Ordering Facility: [facility] Address: [address] [place] [address] Performed By: #### 2 4321-2, 74201-2, 2777-1 #### [facility] CLIA [id number] [address] [place] [address] [place] Creatinine and Glomerular filtration rate.predicted panel (S/P/Bld) 127 mL/min/1.73m??? Normal >=60 [facility] Comment on above: Order Comment: Speci men Type: BLOOD SPECIMEN Ordering Facility: [facility] Address: [address] [place] [address] Result Comment: Lor mated Glomerular Filtration Rate [...] By: #### 2 4321-2, , 2776-08 #### [facility] CLIA [id number] [address] [address] [place] Glucose [Mass/Vol] 83 mg/dL Normal 74-99 [facility] Comment on above: Order Comment: Sana zuñiga Type: BLOOD SPECIMEN Ordering Facility: [facility] Address: [address] [place] [address] Result Comment: The [place] Diabetes [employer] (ADA) provides guidance for cutoff [...] Standards of Medical Care in Diabetes 2016, [place] [employer]. Diabetes Care. 2016.39(Suppl 1). Performed By: #### 2 4321-2, , 2776-08 #### [facility] CLIA [id number] [facility] [place] [id number] [place] Potassium [Moles/Vol] 4.9 mmol/L Normal 3.7-5.1 [facility] Comment on above: Order Comment: Sana zuñiga Type: BLOOD SPECIMEN Ordering Facility: [facility] Address: [address] [place] [address] Performed By: #### 2 4321-2, , 2776-08 #### [facility] CLIA [id number] [address] [address] [place] Sodium [Moles/Vol] 146 mmol/L High 136-144 [facility] Comment on above: Order Comment: Speci men Type: BLOOD SPECIMEN Ordering Facility: [facility] Address: [address] [place] [address] Performed By: #### 2 4321-2, , 2776-08 #### [facility] CLIA [id number] [address] [place] [address] [place] Urea nitrogen [Mass/Vol] 6 mg/dL Low 9-24 [facility] Comment on above: Order Comment: Speci men Type: BLOOD SPECIMEN Ordering Facility: [facility] Address: [address] [place] [address] Performed By: #### 2 4321-2, , 2776-08 #### [facility] CLIA [id number] [address] [place] [address] [place] CBC panel Auto (Bld)on 11-05 Erythrocyte distribution width (RBC) [Ratio] 14.8 % Normal 11.5-15.0 [facility] Comment on above: Order Comment: Speci men Type: BLOOD SPECIMEN Ordering Facility: [facility] Address: [address] [place] [address] Performed By: #### 2 777-1, , #### [facility] CLIA [id number] [address] [place] [address] [place] Hematocrit (Bld) [Volume fraction] 31.3 % Low 39.0-51.0 [facility] Comment on above: Order Comment: Speci men Type: BLOOD SPECIMEN Ordering Facility: [facility] Address: [address] [place] [address] Performed By: #### 2 777-1, , #### [facility] CLIA [id number] [address] [place] [address] [place] Hemoglobin (Bld) [Mass/Vol] 9.8 g/dL Low 13.0-17.0 [facility] Comment on above: Order Comment: Speci men Type: BLOOD SPECIMEN Ordering Facility: [facility] Address: [address] [place] [address] Performed By: #### 2 777-1, 60462-6, #### [facility] CLIA [id number] [address] [place] [address] [place] MCH (RBC) [Entitic mass] 26.4 pg Normal 26.0-34.0 [facility] Comment on above: Order Comment: Speci men Type: BLOOD SPECIMEN Ordering Facility: [facility] Address: [address] [place] [address] Performed By: #### 2 777-1, 46861-0, #### [facility] CLIA [id number] [address] [place] [address] [place] MCHC (RBC) [Mass/Vol] 31.3 g/dL Normal 30.5-36.0 [facility] Comment on above: Order Comment: Speci men Type: BLOOD SPECIMEN Ordering Facility: [facility] Address: [address] [place] [address] Performed By: #### 2 777-1, , #### [facility] CLIA [id number] [address] [place] [address] [place] MCV (RBC) [Entitic vol] 84.4 fL Normal 80.0-100.0 [facility] Comment on above: Order Comment: Speci men Type: BLOOD SPECIMEN Ordering Facility: [facility] Address: [address] [place] [address] Performed By: #### 2 777-1, 37336-3, #### [facility] CLIA [id number] [address] [place] [address] [place] Nucleated RBC (Bld) [#/Vol] 10*3/uL Normal <0.01 [facility] Comment on above: Order Comment: Speci men Type: BLOOD SPECIMEN Ordering Facility: [facility] Address: [address] [place] [address] Performed By: #### 2 777-1, 14200-5, #### [facility] CLIA [id number] [address] [place] [address] [place] Platelet mean volume (Bld) [Entitic vol] 8.9 fL Low 9.0-12.7 [facility] Comment on above: Order Comment: Speci men Type: BLOOD SPECIMEN Ordering Facility: [facility] Address: [address] [place] [address] Performed By: #### 2 777-1, 68582-3, #### [facility] CLIA [id number] [address] [place] [address] [place] Platelets (Bld) [#/Vol] 244 10*3/uL Normal 150-400 [facility] Comment on above: Order Comment: Speci men Type: BLOOD SPECIMEN Ordering Facility: [facility] Address: [address] [place] [address] Performed By: #### 2 777-1, 12916-6, #### [facility] CLIA [id number] [address] [place] [address] [place] RBC (Bld) [#/Vol] 3.71 10*6/uL Low 4.20-6.00 [facility] Comment on above: Order Comment: Speci men Type: BLOOD SPECIMEN Ordering Facility: [facility] Address: [address] [place] [address] Performed By: #### 2 777-1, 11676-9, #### [facility] CLIA [id number] [address] [place] [address] [place] WBC (Bld) [#/Vol] 7.59 10*3/uL Normal 3.70-11.00 [facility] Comment on above: Order Comment: Speci men Type: BLOOD SPECIMEN Ordering Facility: [facility] Address: [address] [place] [address] Performed By: #### 2 777-1, 46392-7, 63554-3 #### [facility] CLIA [id number] [address] [place] [address] [id number] [place] [address] [place] CONSULT PROGon 11-06-2023 CONSULT PROG HNO ID: [id number] Author: KIM BHAKTA MD Service: Neurology General [...] for now. Kim Bhakta MD Staff Neurologist [facility] Multiple Sclerosis Normal [facility] Magnesium [facility] 11-05 Magnesium [Mass/Vol] 2.3 mg/dL Normal 1.7-2.3 [facility] Comment on above: Order Comment: Speci men Type: BLOOD SPECIMEN Ordering Facility: [facility] Address: [address] [place] [address] Performed By: #### 2 4321-2, 95513-7, 7- #### [facility] CLIA [id number] [address] [place] [address] [place] Phosphate [facility] 11-05 Phosphate [Mass/Vol] 4.1 mg/dL Normal 2.7-4.8 [facility] Comment on above: Order Comment: Speci men Type: BLOOD SPECIMEN Ordering Facility: [facility] Address: [address] [place] [address] Performed By: #### 2 4321-2, 15115-1, 2777 #### [facility] CLIA [id number] [address] [place] [address] [place] THERAPY NTon 11-06-2023 THERAPY NT HNO ID: [id number] Author: CHANTELL BELLA CCC-[employer] INSURANCE AGENT Service: Speech/Swallow Author Type: Speech Language Pathologist Type: Therapy (PT/OT/Speech/Resp) Filed: 11/06/2023 10:28 Note Text: [facility] Speech Pathology - [facility] Bedside Swallow Evaluation SERVICE DATE: 11/06/2023 ROOM: [place] [address] IMPRESSIONS: Limited bedside swallowing evaluation as patient [...] assessment. PLAN: Page with concerns/questions. Chantell Bella [facility]-[employer] INSURANCE AGENT Pager # [phone] BRIEF DIAGNOSIS AND HISTORY per General Surgery [...] discussed with: MIRIAM adkins SIGNATURE: Chantell Bella [facility]-[employer]ERSON[employer] INSURANCE AGENT PATIENT NAME: Johnny Devine DATE: November 06, 2023 TIME: 10:12 AM PAGER: [phone] Normal [facility] Basic metabolic 2000 panelon 11-05-2023 Anion gap [Moles/Vol] 7 mmol/L Low -18 [facility] Comment on above: Order Comment: Speci men Type: BLOOD SPECIMEN Ordering Facility: [facility] Address: [address] [place] [address] Performed By: #### 5 7021-8 #### [facility] CLIA [id number] [address] [place] [address] [place] Calcium [Mass/Vol] 7.6 mg/dL Low 8.5-10.2 [facility] Comment on above: Order Comment: Speci men Type: BLOOD SPECIMEN Ordering Facility: [facility] Address: [address] [place] [address] Performed By: #### 5 7021-8 #### [facility] CLIA [id number] [address] [place] [address] [place] Chloride [Moles/Vol] 112 mmol/L High 97-105 [facility] Comment on above: Order Comment: Speci men Type: BLOOD SPECIMEN Ordering Facility: [facility] Address: [address] [place] [address] Performed By: #### 5 7021-8 #### [facility] CLIA [id number] [address] [place] [address] [place] CO2 [Moles/Vol] 23 mmol/L Normal 22-30 [facility] Comment on above: Order Comment: Speci men Type: BLOOD SPECIMEN Ordering Facility: [facility] Address: [address] [place] [address] Performed By: #### 5 7021-8 #### [facility] CLIA [id number] [address] [place] [address] [place] Creatinine [Mass/Vol] 0.64 mg/dL Low 0.73-1.22 [facility] Comment on above: Order Comment: Speci men Type: BLOOD SPECIMEN Ordering Facility: [facility] Address: [address] [place] [address] Performed By: #### 5 7021-8 #### [facility] CLIA [id number] [address] [place] [address] [place] Creatinine and Glomerular filtration rate.predicted panel (S/P/Bld) 130 mL/min/1.73m??? Normal >=60 [facility] Comment on above: Order Comment: Speci men Type: BLOOD SPECIMEN Ordering Facility: [facility] Address: [address] [place] [address] Result Comment: Lor mated Glomerular Filtration Rate [...] GFR. Performed By: #### 5 7021-8 #### [facility] CLIA [id number] [address] [place] [address] [place] Glucose [Mass/Vol] 96 mg/dL Normal 74-99 [facility] Comment on above: Order Comment: Speci men Type: BLOOD SPECIMEN Ordering Facility: [facility] Address: [address] [place] [address] Result Comment: The [place] [employer] (ADA) provides guidance for cutoff [...] Standards of Medical Care in Diabetes 2016, [place] [employer]. Diabetes Care. 2016.39(Suppl 1). Performed By: #### 5 7021-8 #### [facility] CLIA [id number] [address] [place] [address] [place] Potassium [Moles/Vol] 4.2 mmol/L Normal 3.7-5.1 [facility] Comment on above: Order Comment: Akbari men Type: BLOOD SPECIMEN Ordering Facility: [facility] Address: [address] [place] [address] Performed By: #### 5 7021-8 #### [facility] CLIA [id number] [address] [place] [address] [place] Sodium [Moles/Vol] 142 mmol/L Normal 136-144 [facility] Comment on above: Order Comment: Speci men Type: BLOOD SPECIMEN Ordering Facility: [facility] Address: [address] [place] [address] Performed By: #### 5 7021-8 #### [facility] CLIA [id number] [address] [place] [address] [place] Urea nitrogen [Mass/Vol] 5 mg/dL Low 9-24 [facility] Comment on above: Order Comment: Speci men Type: BLOOD SPECIMEN Ordering Facility: [facility] Address: [address] [place] [address] Performed By: #### 5 7021-8 #### [facility] CLIA [id number] [address] [place] [address] [place] CBC panel Auto (Bld)on 11-04 Erythrocyte distribution width (RBC) [Ratio] 14.6 % Normal 11.5-15.0 [facility] Comment on above: Order Comment: Speci men Type: BLOOD SPECIMENOrdering Facility: [facility] Address: [address] [place] [address] Performed By: #### 5 8410-2 ####[facility] [id number] [place] [address] [place] Hematocrit (Bld) [Volume fraction] 30.8 % Low 39.0-51.0 [facility] Comment on above: Order Comment: Speci men Type: BLOOD SPECIMENOrdering Facility: [facility] Address: [address] [place] [address] Performed By: #### 5 8410-2 ####[facility] [id number] [place] [address] [place] Hemoglobin (Bld) [Mass/Vol] 9.7 g/dL Low 13.0-17.0 [facility] Comment on above: Order Comment: Speci men Type: BLOOD SPECIMENOrdering Facility: [facility] Address: [address] [place] [address] Performed By: #### 5 8410-2 ####[facility] [id number] [place] [address] [place] MCH (RBC) [Entitic mass] 26.5 pg Normal 26.0-34.0 [facility] Comment on above: Order Comment: Speci men Type: BLOOD SPECIMENOrdering Facility: [facility] Address: [address] [place], [place] [address] Performed By: #### 5 8410-2 ####[facility] [id number] [place] [address] [place] MCHC (RBC) [Mass/Vol] 31.5 g/dL Normal 30.5-36.0 [facility] Comment on above: Order Comment: Speci men Type: BLOOD SPECIMENOrdering Facility: [facility] Address: [address] [place] [address] Performed By: #### 5 8410-2 ####[facility] [id number] [place] [address] [place] MCV (RBC) [Entitic vol] 84.2 fL Normal 80.0-100.0 [facility] Comment on above: Order Comment: Speci men Type: BLOOD SPECIMENOrdering Facility: [facility] Address: [address] [place] [address] Performed By: #### 5 8410-2 ####[facility] [id number] [place] [address] [place] Nucleated RBC (Bld) [#/Vol] 10*3/uL Normal <0.01 [facility] Comment on above: Order Comment: Speci men Type: BLOOD SPECIMENOrdering Facility: [facility] Address: [address] [place] [address] Performed By: #### 5 8410-2 ####[facility] [id number] [place] [address] [place] Platelet mean volume (Bld) [Entitic vol] 9.1 fL Normal 9.0-12.7 [facility] Comment on above: Order Comment: Speci men Type: BLOOD SPECIMENOrdering Facility: [facility] Address: [address] [place] [address] Performed By: #### 5 8410-2 ####[facility] [id number] [place] [address] [place] Platelets (Bld) [#/Vol] 205 10*3/uL Normal 150-400 [facility] Comment on above: Order Comment: Speci men Type: BLOOD SPECIMENOrdering Facility: [facility] Address: [address] [place] [address] Performed By: #### 5 8410-2 ####[facility] [id number] [place] [address] [place] RBC (Bld) [#/Vol] 3.66 10*6/uL Low 4.20-6.00 [facility] Comment on above: Order Comment: Speci men Type: BLOOD SPECIMENOrdering Facility: [facility] Address: [address] [place] [address] Performed By: #### 5 8410-2 ####[facility] [id number] [place] [address] [place] WBC (Bld) [#/Vol] 7.54 10*3/uL Normal 3.70-11.00 [facility] Comment on above: Order Comment: Speci men Type: BLOOD SPECIMENOrdering Facility: [facility] Address: [address] [place] [address] Performed By: #### 5 8410-2 ####[facility] [id number] [place] [address] [place] Magnesium SerPl-mCncon 11-04 Magnesium [Mass/Vol] 2.0 mg/dL Normal 1.7-2.3 [facility] Comment on above: Order Comment: Speci men Type: BLOOD SPECIMEN Ordering Facility: [facility] Address: [address] [place] [address] Performed By: #### 5 7021-8 #### [facility] CLIA [id number] [address] [place] [address] [place] Phosphate SerPl-mCncon 11-04 Phosphate [Mass/Vol] 3.1 mg/dL Normal 2.7-4.8 [facility] Comment on above: Order Comment: Speci men Type: BLOOD SPECIMEN Ordering Facility: [facility] Address: [address] [place] [address] Performed By: #### 5 7021-8 #### [facility] CLIA [id number] [address] [place] [address] THERAPY NTon 11-05-2023 THERAPY NT HNO ID: [id number] Author: ANA LUISA MORALES, PT Service: ? Author Type: Physical Therapist Type: Therapy (PT/OT/Speech/Resp) Filed: 11/05/2023 15:46 Note Text: Physical Therapy Evaluation Summary SERVICE DATE: 11/05/2023 SERVICE TIME: 1459 to 1532 ROOM: [place] [address] PT 6 Clicks Score: 18 DISCHARGE RECOMMENDATIONS Home Recommended Discharge Disposition Comments: Anticipate patient will continue to progress in mobility. Anticipate return to skilled nursing as long as able to provide current [...] Patient Lives With: Other: See Comment Comments: nursing home ( intermediate care ) Assistance Available: 24-Hour PRIOR FUNCTIONAL LEVEL Required Assistance Assistance Required With: Cleaning, Laundry, Meals, Safety, Self Care, Shopping, Transportation Patient non-verbal at baseline. Aunt (cate) present during session to obtain PLOF. Patient lives at skilled nursing. I with mobility. Can feed himself and [...] and mobility-other TREATMENT INTERVENTIONS Evaluation, Therapeutic Activity (84242) Timed Code Treatment (minutes): 18 Skilled Treatment [...] Type: Stepping Bed To Chair Transfer Equipment: (SWING GRINDER) frequent verbal cues Gait Contact Guard Assistance [...] Transfer Training, Gait Training SIGNATURE: Ana Luisa Morales PT PATIENT NAME: Johnny Devine DATE: November 05, 2023 TIME: 3:46 PM Normal [facility] Basic metabolic 2000 panelon 11-04-2023 Anion gap [Moles/Vol] 9 mmol/L Normal 9-18 [facility] Comment on above: Order Comment: Speci men Type: BLOOD SPECIMEN Ordering Facility: [facility] Address: [address] [place] [address] Performed By: #### 2 777-1, 21834-4, #### [facility] CLIA [id number] [address] [place] [address] [place] Calcium [Mass/Vol] 7.7 mg/dL Low 8.5-10.2 [facility] Comment on above: Order Comment: Speci men Type: BLOOD SPECIMEN Ordering Facility: [facility] Address: [address] [place] [address] Performed By: #### 2 777-1, 91242-2, #### [facility] CLIA [id number] [address] [place] [address] [place] Chloride [Moles/Vol] 112 mmol/L High 97-105 [facility] Comment on above: Order Comment: Speci men Type: BLOOD SPECIMEN Ordering Facility: [facility] Address: [address] [place] [address] Performed By: #### 2 777-1, 60118-5, #### [facility] CLIA [id number] [address] [place] [address] [place] CO2 [Moles/Vol] 24 mmol/L Normal 22-30 [facility] Comment on above: Order Comment: Speci men Type: BLOOD SPECIMEN Ordering Facility: [facility] Address: [address] [place] [address] Performed By: #### 2 777-1, 66799-7, #### [facility] CLIA [id number] [address] [place] [address] [place] Creatinine [Mass/Vol] 0.70 mg/dL Low 0.73-1.22 [facility] Comment on above: Order Comment: Sana zuñiga Type: BLOOD SPECIMEN Ordering Facility: [facility] Address: [address] [place] [address] Performed By: #### 2 777-1, 45517-6, #### [facility] CLIA [id number] [address] [place] [address] [place] Creatinine and Glomerular filtration rate.predicted panel (S/P/Bld) 126 mL/min/1.73m??? Normal >=60 [facility] Comment on above: Order Comment: Sana zuñiga Type: BLOOD SPECIMEN Ordering Facility: [facility] Address: [address] [place] [address] Result Comment: Lor mated Glomerular Filtration Rate [...] actual GFR. Performed By: #### 2 777-1, 66399-0, #### [facility] CLIA [id number] [address] [place] [address] [place] Glucose [Mass/Vol] 79 mg/dL Normal 74-99 [facility] Comment on above: Order Comment: Sana zuñiga Type: BLOOD SPECIMEN Ordering Facility: [facility] Address: [address] [place] [address] Result Comment: The [place] Diabetes [employer] (ADA) provides guidance for cutoff [...] Standards of Medical Care in Diabetes 2016, [place] [employer]. Diabetes Care. 2016.39(Suppl 1). Performed By: #### 2 777-1, 00950-5, #### [facility] CLIA [id number] [address] [place] [address] [place] Potassium [Moles/Vol] 3.6 mmol/L Low 3.7-5.1 [facility] Comment on above: Order Comment: Sana zuñiga Type: BLOOD SPECIMEN Ordering Facility: [facility] Address: [address] [place] [address] Performed By: #### 2 777-1, 32213-0, #### [facility] CLIA [id number] [address] [place] [address] [place] Sodium [Moles/Vol] 145 mmol/L High 136-144 [facility] Comment on above: Order Comment: Sana zuñiga Type: BLOOD SPECIMEN Ordering Facility: [facility] Address: [address] [place] [address] Performed By: #### 2 777-1, 91550-5, #### [facility] CLIA [id number] [address] [place] [address] [place] Urea nitrogen [Mass/Vol] 4 mg/dL Low 9-24 [facility] Comment on above: Order Comment: Speci men Type: BLOOD SPECIMEN Ordering Facility: [facility] Address: [address] [place] [address] Performed By: #### 2 777-1, 31554-4, #### [facility] CLIA [id number] [address] [place] [address] [place] CBC panel Auto (Bld)on 11-03 Erythrocyte distribution width (RBC) [Ratio] 14.3 % Normal 11.5-15.0 [facility] Comment on above: Order Comment: Speci men Type: BLOOD SPECIMEN Ordering Facility: [facility] Address: [address] [place] [address] Performed By: #### 2 777-1, 04757-1, #### [facility] CLIA [id number] [address] [place] [address] [place] Hematocrit (Bld) [Volume fraction] 33.4 % Low 39.0-51.0 [facility] Comment on above: Order Comment: Speci men Type: BLOOD SPECIMEN Ordering Facility: [facility] Address: [address] [place] [address] Performed By: #### 2 777-1, 16219-5, #### [facility] CLIA [id number] [address] [place] [address] [place] Hemoglobin (Bld) [Mass/Vol] 10.5 g/dL Low 13.0-17.0 [facility] Comment on above: Order Comment: Speci men Type: BLOOD SPECIMEN Ordering Facility: [facility] Address: [address] [place] [address] Performed By: #### 2 777-1, 78745-3, #### [facility] CLIA [id number] [address] [place] [address] [place] MCH (RBC) [Entitic mass] 26.4 pg Normal 26.0-34.0 [facility] Comment on above: Order Comment: Speci men Type: BLOOD SPECIMEN Ordering Facility: [facility] Address: [address] [place] [address] Performed By: #### 2 777-1, 51755-9, #### [facility] CLIA [id number] [address] [place] [address] [place] MCHC (RBC) [Mass/Vol] 31.4 g/dL Normal 30.5-36.0 [facility] Comment on above: Order Comment: Speci men Type: BLOOD SPECIMEN Ordering Facility: [facility] Address: [address] [place] [address] Performed By: #### 2 777-1, 76064-0, #### [facility] CLIA [id number] [address] [place] [address] [place] MCV (RBC) [Entitic vol] 84.1 fL Normal 80.0-100.0 [facility] Comment on above: Order Comment: Speci men Type: BLOOD SPECIMEN Ordering Facility: [facility] Address: [address] [place] [address] Performed By: #### 2 777-1, 06722-2, #### [facility] CLIA [id number] [address] [place] [address] [place] Nucleated RBC (Bld) [#/Vol] 10*3/uL Normal <0.01 [facility] Comment on above: Order Comment: Speci men Type: BLOOD SPECIMEN Ordering Facility: [facility] Address: [address] [place] [address] Performed By: #### 2 777-1, 54896-9, #### [facility] CLIA [id number] [address] [place] [address] [place] Platelet mean volume (Bld) [Entitic vol] 8.9 fL Low 9.0-12.7 [facility] Comment on above: Order Comment: Speci men Type: BLOOD SPECIMEN Ordering Facility: [facility] Address: [address] [place] [address] Performed By: #### 2 777-1, 10142-4, #### [facility] CLIA [id number] [address] [place] [address] [place] Platelets (Bld) [#/Vol] 242 10*3/uL Normal 150-400 [facility] Comment on above: Order Comment: Speci men Type: BLOOD SPECIMEN Ordering Facility: [facility] Address: [address] [place] [address] Performed By: #### 2 777-1, 92321-8, #### [facility] CLIA [id number] [address] [place] [address] [place] RBC (Bld) [#/Vol] 3.97 10*6/uL Low 4.20-6.00 [facility] Comment on above: Order Comment: Speci men Type: BLOOD SPECIMEN Ordering Facility: [facility] Address: [address] [place] [address] Performed By: #### 2 777-1, 67196-8, #### [facility] CLIA [id number] [address] [place] [address] [place] WBC (Bld) [#/Vol] 9.36 10*3/uL Normal 3.70-11.00 [facility] Comment on above: Order Comment: Speci men Type: BLOOD SPECIMEN Ordering Facility: [facility] Address: [address] [place] [address] Performed By: #### 2 777-1, 69680-3, #### [facility] CLIA [id number] [address] [place] [address] [place] Magnesium SerPl-mCncon 11-03 Magnesium [Mass/Vol] 2.0 mg/dL Normal 1.7-2.3 [facility] Comment on above: Order Comment: Speci men Type: BLOOD SPECIMEN Ordering Facility: [facility] Address: [address] [place] [address] Performed By: #### 2 777-1, 66856-4, #### [facility] CLIA [id number] [address] [place] [address] [place] NUTRITIONon 11-04-2023 NUTRITION HNO ID: [id number] Author: SAURABH VAZQUEZ DTR Service: Nutrition Therapy Author Type: [employer] Service Type: Nutrition Filed: 11/04/2023 14:35 Note Text: NUTRITION THERAPY LEVER MILLER NOTE SERVICE DATE: 11/04/2023 SERVICE TIME: 1030 Visit Type: Length of Stay Evaluation Goals Met: Not Met Will monitor for diet advancement and nutritional needs as able. Plan of Care[facility] Malnutrition Score: 0 Nutrition [...] November 04, 2023 TIME: 2:25 PM Normal [facility] Phosphate SerPl-mCncon 11-03 Phosphate [Mass/Vol] 2.6 mg/dL Low 2.7-4.8 [facility] Comment on above: Order Comment: Speci men Type: BLOOD SPECIMEN Ordering Facility: [facility] Address: [address] [place] [address] Performed By: #### 2 777-1, 55117-3, 25431-6 #### [facility] CLIA [id number] [address] [place] [address] [place] Valproate Free SerPl-mCncon 11-04-2023 Valproate Free [Mass/Vol] 11.3 ug/mL Normal 4.0-30.0 [facility] Comment on above: Order Comment: Speci yogesh Type: BLOOD SPECIMENOrdering Facility: [facility] Address: [address] [place] [address] Result Comment: Refe rence ranges and high/low indicator flags are provided as general guidelines only. The treating physician must determine appropriate target levels/dosing based on the specific clinical situation. This test was developed and its performance characteristics determined by [facility] [place] ([facility]). It has not been cleared or approved by the FDA. [facility] is regulated under CLIA as qualified to perform high-complexity testing. This test is used for clinical purposes. It should not be regarded as investigational or for research. Performed By: #### 4 087-3 ####[facility] [id number] [place] [address] [place] Valproate SerPl-ncon 11-03 Valproate [Mass/Vol] 49.2 ug/mL Low 50.0-100.0 [facility] Comment on above: Order Comment: Speci yogesh Type: BLOOD SPECIMEN Ordering Facility: [facility] Address: [address] [place] [address] Result Comment: Refe rence ranges and high/low indicator flags are provided as general guidelines only. The treating physician must determine appropriate target levels/dosing based on the specific clinical situation. Performed By: #### 2 4321-2, 09674-4, 2777-1 #### [facility] CLIA [id number] [address] [place] [address] [place] Basic metabolic 2000 panelon 11-03-2023 Anion gap [Moles/Vol] 11 mmol/L Normal 9-18 [facility] Comment on above: Order Comment: Speci men Type: BLOOD SPECIMEN Ordering Facility: [facility] Address: [address] [place] [address] Performed By: #### 2 777-1, 17823-2, 11517-4 #### [facility] CLIA [id number] [address] [place] [address] [place] Calcium [Mass/Vol] 7.7 mg/dL Low 8.5-10.2 [facility] Comment on above: Order Comment: Speci men Type: BLOOD SPECIMEN Ordering Facility: [facility] Address: [address] [place] [address] Performed By: #### 2 777-1, 51568-0, #### [facility] CLIA [id number] [address] [place] [address] [place] Chloride [Moles/Vol] 112 mmol/L High 97-105 [facility] Comment on above: Order Comment: Speci men Type: BLOOD SPECIMEN Ordering Facility: [facility] Address: [address] [place] [address] Performed By: #### 2 777-1, 21365-1, #### [facility] CLIA [id number] [address] [place] [address] [place] CO2 [Moles/Vol] 22 mmol/L Normal 22-30 [facility] Comment on above: Order Comment: Speci men Type: BLOOD SPECIMEN Ordering Facility: [facility] Address: [address] [place] [address] Performed By: #### 2 777-1, 79058-6, #### [facility] CLIA [id number] [address] [place] [address] [place] Creatinine [Mass/Vol] 0.68 mg/dL Low 0.73-1.22 [facility] Comment on above: Order Comment: Speci men Type: BLOOD SPECIMEN Ordering Facility: [facility] Address: [address] [place] [address] Performed By: #### 2 777-1, 23418-1, #### [facility] CLIA [id number] [address] [place] [address] [place] Creatinine and Glomerular filtration rate.predicted panel (S/P/Bld) 127 mL/min/1.73m??? Normal >=60 [facility] Comment on above: Order Comment: Sana zuñiga Type: BLOOD SPECIMEN Ordering Facility: [facility] Address: [address] [place] [address] Result Comment: Lor mated Glomerular Filtration Rate [...] actual GFR. Performed By: #### 2 777-1, 60455-4, #### [facility] CLIA [id number] [address] [place] [address] [place] Glucose [Mass/Vol] 85 mg/dL Normal 74-99 [facility] Comment on above: Order Comment: Sana zuñiga Type: BLOOD SPECIMEN Ordering Facility: [facility] Address: [address] [place] [address] Result Comment: The [place] Diabetes [employer] (ADA) provides guidance for cutoff [...] Standards of Medical Care in Diabetes 2016, [place] [employer]. Diabetes Care. 2016.39(Suppl 1). Performed By: #### 2 777-1, 95155-3, #### [facility] CLIA [id number] [address] [place] [address] [place] Potassium [Moles/Vol] 3.4 mmol/L Low 3.7-5.1 [facility] Comment on above: Order Comment: Speci men Type: BLOOD SPECIMEN Ordering Facility: [facility] Address: [address] [place] [address] Performed By: #### 2 777-1, 94620-9, #### [facility] CLIA [id number] [address] [place] [address] [place] Sodium [Moles/Vol] 145 mmol/L High 136-144 [facility] Comment on above: Order Comment: Speci men Type: BLOOD SPECIMEN Ordering Facility: [facility] Address: [address] [place] [address] Performed By: #### 2 777-1, 14947-7, #### [facility] CLIA [id number] [address] [place] [address] [place] Urea nitrogen [Mass/Vol] 5 mg/dL Low 9-24 [facility] Comment on above: Order Comment: Speci men Type: BLOOD SPECIMEN Ordering Facility: [facility] Address: [address] [place] [address] Performed By: #### 2 777-1, 46645-7, #### [facility] CLIA [id number] [address] [place] [address] [place] CBC W Auto Differential pane l (Bld)on 11-03-2023 Basophils (Bld) [#/Vol] 10*3/uL Normal <0.11 [facility] Comment on above: Order Comment: Speci men Type: BLOOD SPECIMEN Ordering Facility: [facility] Address: [address] [place] [address] Performed By: #### 5 7021-8 #### [facility] CLIA [id number] [address] [place] [address] [place] Basophils/100 WBC (Bld) 0.3 % Normal [facility] Comment on above: Order Comment: Speci men Type: BLOOD SPECIMEN Ordering Facility: [facility] Address: [address] [place] [address] Performed By: #### 5 7021-8 #### [facility] CLIA [id number] [address] [place] [address] [place] Differential cell count method Nom (Bld) Auto Normal [facility] Comment on above: Order Comment: Speci men Type: BLOOD SPECIMEN Ordering Facility: [facility] Address: [address] [place] [address] Performed By: #### 5 7021-8 #### [facility] CLIA [id number] [address] [place] [address] [place] Eosinophils (Bld) [#/Vol] 0.25 10*3/uL Normal <0.46 [facility] Comment on above: Order Comment: Speci men Type: BLOOD SPECIMEN Ordering Facility: [facility] Address: [address] [place] [address] Performed By: #### 5 7021-8 #### [facility] CLIA [id number] [address] [place] [address] [place] Eosinophils/100 WBC (Bld) 3.1 % Normal [facility] Comment on above: Order Comment: Speci men Type: BLOOD SPECIMEN Ordering Facility: [facility] Address: [address] [place] [address] Performed By: #### 5 7021-8 #### [facility] CLIA [id number] [address] [place] [address] [place] Erythrocyte distribution width (RBC) [Ratio] 13.7 % Normal 11.5-15.0 [facility] Comment on above: Order Comment: Speci men Type: BLOOD SPECIMEN Ordering Facility: [facility] Address: [address] [place] [address] Performed By: #### 5 7021-8 #### [facility] CLIA [id number] [address] [place] [address] [place] Hematocrit (Bld) [Volume fraction] 29.9 % Low 39.0-51.0 [facility] Comment on above: Order Comment: Speci men Type: BLOOD SPECIMEN Ordering Facility: [facility] Address: [address] [place] [address] Performed By: #### 5 7021-8 #### [facility] CLIA [id number] [address] [place] [address] [place] Hemoglobin (Bld) [Mass/Vol] 9.4 g/dL Low 13.0-17.0 [facility] Comment on above: Order Comment: Speci men Type: BLOOD SPECIMEN Ordering Facility: [facility] Address: [address] [place] [address] Performed By: #### 5 7021-8 #### [facility] CLIA [id number] [address] [place] [address] [place] Immature granulocytes (Bld) [#/Vol] 0.11 10*3/uL High <0.10 [facility] Comment on above: Order Comment: Speci men Type: BLOOD SPECIMEN Ordering Facility: [facility] Address: [address] [place] [address] Performed By: #### 5 7021-8 #### [facility] CLIA [id number] [address] [place] [address] [place] Immature granulocytes/100 WBC (Bld) 1.4 % Normal [facility] Comment on above: Order Comment: Speci men Type: BLOOD SPECIMEN Ordering Facility: [facility] Address: [address] [place] [address] Performed By: #### 5 7021-8 #### [facility] CLIA [id number] [address] [place] [address] [place] Lymphocytes (Bld) [#/Vol] 2.03 10*3/uL Normal 1.00-4.00 [facility] Comment on above: Order Comment: Speci men Type: BLOOD SPECIMEN Ordering Facility: [facility] Address: [address] [place] [address] Performed By: #### 5 7021-8 #### [facility] CLIA [id number] [address] [place] [address] [place] Lymphocytes/100 WBC (Bld) 25.4 % Normal [facility] Comment on above: Order Comment: Speci men Type: BLOOD SPECIMEN Ordering Facility: [facility] Address: [address] [place] [address] Performed By: #### 5 7021-8 #### [facility] CLIA [id number] [address] [place] [address] [place] MCH (RBC) [Entitic mass] 26.5 pg Normal 26.0-34.0 [facility] Comment on above: Order Comment: Speci men Type: BLOOD SPECIMEN Ordering Facility: [facility] Address: [address] [place] [address] Performed By: #### 5 7021-8 #### [facility] CLIA [id number] [address] [place] [address] [place] MCHC (RBC) [Mass/Vol] 31.4 g/dL Normal 30.5-36.0 [facility] Comment on above: Order Comment: Speci men Type: BLOOD SPECIMEN Ordering Facility: [facility] Address: [address] [place] [address] Performed By: #### 5 7021-8 #### [facility] CLIA [id number] [address] [place] [address] [place] MCV (RBC) [Entitic vol] 84.2 fL Normal 80.0-100.0 [facility] Comment on above: Order Comment: Speci men Type: BLOOD SPECIMEN Ordering Facility: [facility] Address: [address] [place] [address] Performed By: #### 5 7021-8 #### [facility] CLIA [id number] [address] [place] [address] [place] Monocytes (Bld) [#/Vol] 0.62 10*3/uL Normal <0.87 [facility] Comment on above: Order Comment: Speci men Type: BLOOD SPECIMEN Ordering Facility: [facility] Address: [address] [place] [address] Performed By: #### 5 7021-8 #### [facility] CLIA [id number] [address] [place] [address] [place] Monocytes/100 WBC (Bld) 7.8 % Normal [facility] Comment on above: Order Comment: Speci men Type: BLOOD SPECIMEN Ordering Facility: [facility] Address: [address] [place] [address] Performed By: #### 5 7021-8 #### [facility] CLIA [id number] [address] [place] [address] [place] Neutrophils (Bld) [#/Vol] 4.96 10*3/uL Normal 1.45-7.50 [facility] Comment on above: Order Comment: Speci men Type: BLOOD SPECIMEN Ordering Facility: [facility] Address: [address] [place] [address] Performed By: #### 5 7021-8 #### [facility] CLIA [id number] [address] [place] [address] [place] Neutrophils/100 WBC (Bld) 62.0 % Normal [facility] Comment on above: Order Comment: Speci men Type: BLOOD SPECIMEN Ordering Facility: [facility] Address: [address] [place] [address] Performed By: #### 5 7021-8 #### [facility] CLIA [id number] [address] [place] [address] [place] Nucleated RBC (Bld) [#/Vol] 10*3/uL Normal <0.01 [facility] Comment on above: Order Comment: Speci men Type: BLOOD SPECIMEN Ordering Facility: [facility] Address: [address] [place] [address] Performed By: #### 5 7021-8 #### [facility] CLIA [id number] [address] [place] [address] [place] Nucleated RBC/100 WBC (Bld) [Ratio] 0.0 /100 WBC Normal [facility] Comment on above: Order Comment: Speci men Type: BLOOD SPECIMEN Ordering Facility: [facility] Address: [address] [place] [address] Performed By: #### 5 7021-8 #### [facility] CLIA [id number] [address] [place] [address] [place] Platelet mean volume (Bld) [Entitic vol] 9.3 fL Normal 9.0-12.7 [facility] Comment on above: Order Comment: Speci men Type: BLOOD SPECIMEN Ordering Facility: [facility] Address: [address] [place] [address] Performed By: #### 5 7021-8 #### [facility] CLIA [id number] [address] [place] [address] [place] Platelets (Bld) [#/Vol] 208 10*3/uL Normal 150-400 [facility] Comment on above: Order Comment: Speci men Type: BLOOD SPECIMEN Ordering Facility: [facility] Address: [address] [place] [address] Performed By: #### 5 7021-8 #### [facility] CLIA [id number] [address] [place] [address] [place] RBC (Bld) [#/Vol] 3.55 10*6/uL Low 4.20-6.00 [facility] Comment on above: Order Comment: Speci men Type: BLOOD SPECIMEN Ordering Facility: [facility] Address: [address] [place] [address] Performed By: #### 5 7021-8 #### [facility] CLIA [id number] [address] [place] [address] [place] WBC (Bld) [#/Vol] 7.99 10*3/uL Normal 3.70-11.00 [facility] Comment on above: Order Comment: Speci men Type: BLOOD SPECIMEN Ordering Facility: [facility] Address: [address] [place] [address] Performed By: #### 5 7021-8 #### [facility] CLIA [id number] [address] [place] [address] [place] CONSULTon 11-03-2023 CONSULT HNO ID: [id number] Author: CK HU MD Service: Neurology General [...] TIME: 9:18 AM Team Requesting Consult: Gen surg Current Attending Provider: Samuel Robin* Neurology was asked to evaluate Johnny Devine, a 33 year old male. Our recommendations of care will be communicated by shared medical record. Subjective HPI: Johnny eDvine is a 33 year old male with [...] is brother, Delbert. Patient lives in a skilled nursing at baseline. Per information written on board [...] (DULCOLAX) 10 mg RECTAL DAILY phenol 1 [place] (CHLORASEPTIC) 1 [place] MUCOUS MEMBRANE (TOPICAL MOUTH AND THROAT) q 2 H PRN Or benzocaine-menthol 1 [place] (CHLORASEPTIC) 1 [place] MUCOUS MEMBRANE (TOPICAL MOUTH AND THROAT) q 2 H PRN clomiPRAMINE 75 mg cap(s) (ANAFRANIL) 75 mg ORAL AT BEDTIME lithium carbonate 300 mg cap(s) (ESKALITH) 300 mg ORAL BID sertraline (ZOLOFT (more content not included)... Normal [facility] CT BRAIN WO IVCONon 11-03-[address] BRAIN WO IVCON * * *Final Report* * * DATE OF EXAM: Nov 03 2023 7:42PM [facility] 0504 - CT BRAIN WO IVCON / [...] reduction techniques were required COMPARISON: None. RESULT: Pressure Supervisor (topogram) images: No additional findings. Post-operative change: [...] No clear evidence of an acute abnormality. Esthetic Dermatologist: PSCB Transcribe Date/Time: Nov 03 2023 7:43P Dictated by : HERMAN DOWD MD This examination was interpreted and the report reviewed and electronically signed by: HERMAN DOWD MD on Nov 03 2023 7:44PM EST [id number] Normal [facility] [place], Bld SerPl-sCncon [place] [Moles/Vol] 0.5 mmol/L Low 0.6-1.2 [facility] Comment on above: Order Comment: Speci men Type: BLOOD SPECIMEN Ordering Facility: [facility] Address: [address] [place], [place] [address] Result Comment: Refe rence ranges and high/low indicator flags are provided as general guidelines only. The treating physician must determine appropriate target levels/dosing based on the specific clinical situation. Performed By: #### 1 4334-7, 4086-5 #### [facility] CLIA [id number] [address] [place] [address] [place] Magnesium SerPl-ncon 11-02 Magnesium [Mass/Vol] 2.2 mg/dL Normal 1.7-2.3 [facility] Comment on above: Order Comment: Speci men Type: BLOOD SPECIMEN Ordering Facility: [facility] Address: [address] [place] [address] Performed By: #### 2 777-1, 14904-2, 19993-3 #### [facility] CLIA [id number] [address] [place] [address] [place] Phosphate [facility]-02 Phosphate [Mass/Vol] 2.5 mg/dL Low 2.7-4.8 [facility] Comment on above: Order Comment: Speci men Type: BLOOD SPECIMEN Ordering Facility: [facility] Address: [address] [place] [address] Performed By: #### 2 777-1, 75280-9, #### [facility] CLIA [id number] [address] [place] [address] [place] THERAPY NTon 11-03-2023 THERAPY NT HNO ID: [id number] Author: ANKITA JC PT, DPT Service: Physical Therapy Author Type: Physical Therapist Type: Therapy (PT/OT/Speech/Resp) Filed: 11/03/2023 13:48 Note Text: PHYSICAL THERAPY MISSED VISIT SERVICE DATE: 11/03/2023 SERVICE TIME: 1347 ROOM: [place] [id number] Patient not seen due to Patient Not Available. Another service at bedside upon time of arrival x2 attempts. Will follow up as able/appropriate. SIGNATURE: Ankita Fine, PT, DPT PATIENT NAME: Johnny Devine DATE: November 03, 2023 TIME: 1:48 PM Normal [facility] Valproate SerPl-mCncon 11-02 Valproate [Mass/Vol] 53.0 ug/mL Normal 50.0-100.0 [facility] Comment on above: Order Comment: Speci men Type: BLOOD SPECIMEN Ordering Facility: [facility] Address: [address] [place] [address] Result Comment: Refe rence ranges and high/low indicator flags are provided as general guidelines only. The treating physician must determine appropriate target levels/dosing based on the specific clinical situation. Performed By: #### 1 4334-7, 4086-5 #### [facility] CLIA [id number] [address] [place] [address] [place] Basic metabolic 2000 panelon 11-02-2023 Anion gap [Moles/Vol] 8 mmol/L Low 9-18 [facility] Comment on above: Order Comment: Speci men Type: BLOOD SPECIMEN Ordering Facility: [facility] Address: [address] [place] [address] Performed By: #### 2 777-1, 26212-1, #### [facility] CLIA [id number] [address] [place] [address] [place] Calcium [Mass/Vol] 7.7 mg/dL Low 8.5-10.2 [facility] Comment on above: Order Comment: Speci men Type: BLOOD SPECIMEN Ordering Facility: [facility] Address: [address] [place] [address] Performed By: #### 2 777-1, 77243-6, #### [facility] CLIA [id number] [address] [place] [address] [place] Chloride [Moles/Vol] 109 mmol/L High 97-105 [facility] Comment on above: Order Comment: Speci men Type: BLOOD SPECIMEN Ordering Facility: [facility] Address: [address] [place] [address] Performed By: #### 2 777-1, 64593-3, #### [facility] CLIA [id number] [address] [place] [address] [place] CO2 [Moles/Vol] 24 mmol/L Normal 22-30 [facility] Comment on above: Order Comment: Speci men Type: BLOOD SPECIMEN Ordering Facility: [facility] Address: [address] [place] [address] Performed By: #### 2 777-1, 15628-6, #### [facility] CLIA [id number] [address] [place] [address] [place] Creatinine [Mass/Vol] 0.66 mg/dL Low 0.73-1.22 [facility] Comment on above: Order Comment: Speci men Type: BLOOD SPECIMEN Ordering Facility: [facility] Address: [address] [place] [address] Performed By: #### 2 777-1, 92481-6, #### [facility] CLIA [id number] [address] [place] [address] [place] Creatinine and Glomerular filtration rate.predicted panel (S/P/Bld) 129 mL/min/1.73m??? Normal >=60 [facility] Comment on above: Order Comment: Speci men Type: BLOOD SPECIMEN Ordering Facility: [facility] Address: [address] [place] [address] Result Comment: Lor mated Glomerular Filtration Rate [...] actual GFR. Performed By: #### 2 777-1, 18463-9, #### [facility] CLIA [id number] [address] [place] [address] [place] Glucose [Mass/Vol] 109 mg/dL High 74-99 [facility] Comment on above: Order Comment: Sana zuñiga Type: BLOOD SPECIMEN Ordering Facility: [facility] Address: [address] [place] [address] Result Comment: The [place] [employer] (ADA) provides guidance for cutoff [...] Standards of Medical Care in Diabetes 2016, [place] [employer]. Diabetes Care. 2016.39(Suppl 1). Performed By: #### 2 777-1, 43055-5, #### [facility] CLIA [id number] [address] [place] [address] [place] Potassium [Moles/Vol] 3.5 mmol/L Low 3.7-5.1 [facility] Comment on above: Order Comment: Akbari men Type: BLOOD SPECIMEN Ordering Facility: [facility] Address: [address] [place] [address] Performed By: #### 2 777-1, 73088-0, #### [facility] CLIA [id number] [address] [place] [address] [place] Sodium [Moles/Vol] 141 mmol/L Normal 136-144 [facility] Comment on above: Order Comment: Akbari men Type: BLOOD SPECIMEN Ordering Facility: [facility] Address: [address] [place] [address] Performed By: #### 2 777-1, 73519-2, #### [facility] CLIA [id number] [address] [place] [address] [place] Urea nitrogen [Mass/Vol] 7 mg/dL Low 9-24 [facility] Comment on above: Order Comment: Speci men Type: BLOOD SPECIMEN Ordering Facility: [facility] Address: [address] [place] [address] Performed By: #### 2 777-1, 31217-0, #### [facility] CLIA [id number] [address] [place] [address] [place] CBC W Auto Differential pane l (Bld)on 11-02-2023 Basophils (Bld) [#/Vol] 0.04 10*3/uL Normal <0.11 [facility] Comment on above: Order Comment: Speci men Type: BLOOD SPECIMEN Ordering Facility: [facility] Address: [address] [place] [address] Performed By: #### 2 4321-2, , 2776-08 #### [facility] CLIA [id number] [address] [place] [address] [place] Basophils/100 WBC (Bld) 0.5 % Normal [facility] Comment on above: Order Comment: Speci men Type: BLOOD SPECIMEN Ordering Facility: [facility] Address: [address] [place] [address] Performed By: #### 2 4321-2, , 2776-08 #### [facility] CLIA [id number] [address] [place] [address] [place] Differential cell count method Nom (Bld) Auto Normal [facility] Comment on above: Order Comment: Speci men Type: BLOOD SPECIMEN Ordering Facility: [facility] Address: [address] [place] [address] Performed By: #### 2 4321-2, , 2776-08 #### [facility] CLIA [id number] [address] [place] [address] [place] Eosinophils (Bld) [#/Vol] 0.24 10*3/uL Normal <0.46 [facility] Comment on above: Order Comment: Speci men Type: BLOOD SPECIMEN Ordering Facility: [facility] Address: [address] [place] [address] Performed By: #### 2 4321-2, , 2776-08 #### [facility] CLIA [id number] [address] [place] [address] [place] Eosinophils/100 WBC (Bld) 3.0 % Normal [facility] Comment on above: Order Comment: Speci men Type: BLOOD SPECIMEN Ordering Facility: [facility] Address: [address] [place] [address] Performed By: #### 2 432-2, , 2776-08 #### [facility] CLIA [id number] [address] [place] [address] [place] Erythrocyte distribution width (RBC) [Ratio] 14.0 % Normal 11.5-15.0 [facility] Comment on above: Order Comment: Speci men Type: BLOOD SPECIMEN Ordering Facility: [facility] Address: [address] [place] [address] Performed By: #### 2 432-2, , 2776-08 #### [facility] CLIA [id number] [address] [place] [address] [place] Hematocrit (Bld) [Volume fraction] 36.5 % Low 39.0-51.0 [facility] Comment on above: Order Comment: Speci men Type: BLOOD SPECIMEN Ordering Facility: [facility] Address: [address] [place] [address] Performed By: #### 2 4321-2, , 2776-08 #### [facility] CLIA [id number] [address] [place] [address] [place] Hemoglobin (Bld) [Mass/Vol] 11.2 g/dL Low 13.0-17.0 [facility] Comment on above: Order Comment: Speci men Type: BLOOD SPECIMEN Ordering Facility: [facility] Address: [address] [place] [address] Performed By: #### 2 4321-2, , 2776-08 #### [facility] CLIA [id number] [address] [place] [address] [place] Immature granulocytes (Bld) [#/Vol] 0.10 10*3/uL High <0.10 [facility] Comment on above: Order Comment: Speci men Type: BLOOD SPECIMEN Ordering Facility: [facility] Address: [address] [place] [address] Performed By: #### 2 432-2, , 2776-08 #### [facility] CLIA [id number] [address] [place] [address] [place] Immature granulocytes/100 WBC (Bld) 1.3 % Normal [facility] Comment on above: Order Comment: Speci men Type: BLOOD SPECIMEN Ordering Facility: [facility] Address: [address] [place] [address] Performed By: #### 2 4321-2, , 2776-08 #### [facility] CLIA [id number] [address] [place] [address] [place] Lymphocytes (Bld) [#/Vol] 1.78 10*3/uL Normal 1.00-4.00 [facility] Comment on above: Order Comment: Speci men Type: BLOOD SPECIMEN Ordering Facility: [facility] Address: [address] [place] [address] Performed By: #### 2 4321-2, , 2776-08 #### [facility] CLIA [id number] [address] [place] [address] [place] Lymphocytes/100 WBC (Bld) 22.3 % Normal [facility] Comment on above: Order Comment: Speci men Type: BLOOD SPECIMEN Ordering Facility: [facility] Address: [address] [place] [address] Performed By: #### 2 4321-2, , 2776-08 #### [facility] CLIA [id number] [address] [place] [address] [place] MCH (RBC) [Entitic mass] 26.2 pg Normal 26.0-34.0 [facility] Comment on above: Order Comment: Speci men Type: BLOOD SPECIMEN Ordering Facility: [facility] Address: [address] [place] [address] Performed By: #### 2 4321-2, , 2776-08 #### [facility] CLIA [id number] [address] [place] [address] [place] MCHC (RBC) [Mass/Vol] 30.7 g/dL Normal 30.5-36.0 [facility] Comment on above: Order Comment: Speci men Type: BLOOD SPECIMEN Ordering Facility: [facility] Address: [address] [place] [address] Performed By: #### 2 4321-2, , 2776-08 #### [facility] CLIA [id number] [address] [place] [address] [place] MCV (RBC) [Entitic vol] 85.5 fL Normal 80.0-100.0 [facility] Comment on above: Order Comment: Speci men Type: BLOOD SPECIMEN Ordering Facility: [facility] Address: [address] [place] [address] Performed By: #### 2 4321-2, , 2776-08 #### [facility] CLIA [id number] [address] [place], [place] [id number] [place] Monocytes (Bld) [#/Vol] 0.58 10*3/uL Normal <0.87 [facility] Comment on above: Order Comment: Speci men Type: BLOOD SPECIMEN Ordering Facility: [facility] Address: [address] [place] [address] Performed By: #### 2 4321-2, , 2776-08 #### [facility] CLIA [id number] [address] [place] [address] [place] Monocytes/100 WBC (Bld) 7.3 % Normal [facility] Comment on above: Order Comment: Speci men Type: BLOOD SPECIMEN Ordering Facility: [facility] Address: [address] [place] [address] Performed By: #### 2 4321-2, , 2776-08 #### [facility] CLIA [id number] [address] [place] [address] [place] Neutrophils (Bld) [#/Vol] 5.24 10*3/uL Normal 1.45-7.50 [facility] Comment on above: Order Comment: Speci men Type: BLOOD SPECIMEN Ordering Facility: [facility] Address: [address] [place] [address] Performed By: #### 2 432-2, , 2776-08 #### [facility] CLIA [id number] [address] [place] [address] [place] Neutrophils/100 WBC (Bld) 65.6 % Normal [facility] Comment on above: Order Comment: Speci men Type: BLOOD SPECIMEN Ordering Facility: [facility] Address: [address] [place] [address] Performed By: #### 2 4321-2, , 2776-08 #### [facility] CLIA [id number] [address] [place] [address] [place] Nucleated RBC (Bld) [#/Vol] 10*3/uL Normal <0.01 [facility] Comment on above: Order Comment: Speci men Type: BLOOD SPECIMEN Ordering Facility: [facility] Address: [address] [place] [address] Performed By: #### 2 4321-2, , 2776-08 #### [facility] CLIA [id number] [address] [place] [address] [place] Nucleated RBC/100 WBC (Bld) [Ratio] 0.0 /100 WBC Normal [facility] Comment on above: Order Comment: Speci men Type: BLOOD SPECIMEN Ordering Facility: [facility] Address: [address] [place] [address] Performed By: #### 2 4321-2, , 2776-08 #### [facility] CLIA [id number] [address] [place] [address] [place] Platelet mean volume (Bld) [Entitic vol] 9.7 fL Normal 9.0-12.7 [facility] Comment on above: Order Comment: Speci men Type: BLOOD SPECIMEN Ordering Facility: [facility] Address: [address] [place] [address] Performed By: #### 2 4321-2, , 2776-08 #### [facility] CLIA [id number] [address] [place] [address] [place] Platelets (Bld) [#/Vol] 199 10*3/uL Normal 150-400 [facility] Comment on above: Order Comment: Speci men Type: BLOOD SPECIMEN Ordering Facility: [facility] Address: [address] [place] [address] Performed By: #### 2 4321-2, , 2776-08 #### [facility] CLIA [id number] [address] [place], [place] [address] [place] RBC (Bld) [#/Vol] 4.27 10*6/uL Normal 4.20-6.00 [facility] Comment on above: Order Comment: Speci men Type: BLOOD SPECIMEN Ordering Facility: [facility] Address: [address] [place] [address] Performed By: #### 2 4321-2, 75921-7, 2776-08 #### [facility] CLIA [id number] [address] [place] [address] [place] WBC (Bld) [#/Vol] 7.98 10*3/uL Normal 3.70-11.00 [facility] Comment on above: Order Comment: Speci men Type: BLOOD SPECIMEN Ordering Facility: [facility] Address: [address] [place] [address] Performed By: #### 2 4321-2, , 2776-08 #### [facility] CLIA [id number] [address] [place] [address] [place] Magnesium SerPl-mCncon 11-01 Magnesium [Mass/Vol] 2.3 mg/dL Normal 1.7-2.3 [facility] Comment on above: Order Comment: Speci men Type: BLOOD SPECIMEN Ordering Facility: [facility] Address: [address] [place] [address] Performed By: #### 2 777-1, 24426-2, #### [facility] CLIA [id number] [address] [place] [address] [place] Phosphate SerPl-mCncon 11-01 Phosphate [Mass/Vol] 2.6 mg/dL Low 2.7-4.8 [facility] Comment on above: Order Comment: Speci men Type: BLOOD SPECIMEN Ordering Facility: [facility] Address: [address] [place] [address] Performed By: #### 2 777-1, 28048-9, #### [facility] CLIA [id number] [address] [place] [address] [place] XR ABDOMEN 1V [...] small bowel. Findings suggestive of improving ileus. Esthetic Dermatologist: [facility] Transcribe Date/Time: Nov 02 2023 11:50A Dictated by : VERONICA CARTER MD This examination was interpreted and the report reviewed and electronically signed by: VERONICA CARTER MD on Nov 02 2023 11:52AM EST [id number] Normal [facility] Basic metabolic 2000 panelon 11-01-2023 Anion gap [Moles/Vol] 10 mmol/L Normal 9-18 [facility] Comment on above: Order Comment: Speci men Type: BLOOD SPECIMEN Ordering Facility: [facility] Address: [address] [place] [address] Performed By: #### 5 7021-8 #### [facility] CLIA [id number] [address] [place] [address] [place] Calcium [Mass/Vol] 7.9 mg/dL Low 8.5-10.2 [facility] Comment on above: Order Comment: Speci men Type: BLOOD SPECIMEN Ordering Facility: [facility] Address: [address] [place] [address] Performed By: #### 5 7021-8 #### [facility] CLIA [id number] [address] [place] [address] [place] Chloride [Moles/Vol] 114 mmol/L High 97-105 [facility] Comment on above: Order Comment: Speci men Type: BLOOD SPECIMEN Ordering Facility: [facility] Address: [address] [place] [address] Performed By: #### 5 7021-8 #### [facility] CLIA [id number] [address] [place] [address] [place] CO2 [Moles/Vol] 22 mmol/L Normal 22-30 [facility] Comment on above: Order Comment: Speci men Type: BLOOD SPECIMEN Ordering Facility: [facility] Address: [address] [place] [address] Performed By: #### 5 7021-8 #### [facility] CLIA [id number] [address] [place] [address] [place] Creatinine [Mass/Vol] 0.74 mg/dL Normal 0.73-1.22 [facility] Comment on above: Order Comment: Speci men Type: BLOOD SPECIMEN Ordering Facility: [facility] Address: [address] [place] [address] Performed By: #### 5 7021-8 #### [facility] CLIA [id number] [address] [place] [address] [place] Creatinine and Glomerular filtration rate.predicted panel (S/P/Bld) 124 mL/min/1.73m??? Normal >=60 [facility] Comment on above: Order Comment: Speci men Type: BLOOD SPECIMEN Ordering Facility: [facility] Address: [address] [place] [address] Result Comment: Lor mated Glomerular Filtration Rate [...] GFR. Performed By: #### 5 7021-8 #### [facility] CLIA [id number] [address] [place] [address] [place] Glucose [Mass/Vol] 98 mg/dL Normal 74-99 [facility] Comment on above: Order Comment: Sana zuñiga Type: BLOOD SPECIMEN Ordering Facility: [facility] Address: [address] [place] [address] Result Comment: The [place] [employer] (ADA) provides guidance for cutoff [...] Standards of Medical Care in Diabetes 2016, [place] [employer]. Diabetes Care. 2016.39(Suppl 1). Performed By: #### 5 7021-8 #### [facility] CLIA [id number] [address] [place] [address] [place] Potassium [Moles/Vol] 3.9 mmol/L Normal 3.7-5.1 [facility] Comment on above: Order Comment: Akbari men Type: BLOOD SPECIMEN Ordering Facility: [facility] Address: [address] [place] [address] Performed By: #### 5 7021-8 #### [facility] CLIA [id number] [address] [place] [address] [place] Sodium [Moles/Vol] 146 mmol/L High 136-144 [facility] Comment on above: Order Comment: Sana zuñiga Type: BLOOD SPECIMEN Ordering Facility: [facility] Address: [address] [place] [address] Performed By: #### 5 7021-8 #### [facility] CLIA [id number] [address] [place] [address] [place] Urea nitrogen [Mass/Vol] 9 mg/dL Normal 9-24 [facility] Comment on above: Order Comment: Speci men Type: BLOOD SPECIMEN Ordering Facility: [facility] Address: [address] [place] [address] Performed By: #### 5 7021-8 #### [facility] CLIA [id number] [address] [place] [address] [place] CBC W Auto Differential pane l (Bld)on 11-01-2023 Basophils (Bld) [#/Vol] 10*3/uL Normal <0.11 [facility] Comment on above: Order Comment: Speci men Type: BLOOD SPECIMENOrdering Facility: [facility] Address: [address] [place] [address] Performed By: #### 5 7021-8 ####[facility] [id number] [place] [address] [place] Basophils/100 WBC (Bld) 0.3 % Normal [facility] Comment on above: Order Comment: Speci men Type: BLOOD SPECIMENOrdering Facility: [facility] Address: [address] [place] [address] Performed By: #### 5 7021-8 ####[facility] [id number] [place] [address] [place] Differential cell count method Nom (Bld) Auto Normal [facility] Comment on above: Order Comment: Speci men Type: BLOOD SPECIMENOrdering Facility: [facility] Address: [address] [place] [address] Performed By: #### 5 7021-8 ####[facility] [id number] [place] [address] [place] Eosinophils (Bld) [#/Vol] 0.23 10*3/uL Normal <0.46 [facility] Comment on above: Order Comment: Speci men Type: BLOOD SPECIMENOrdering Facility: [facility] Address: [address] [place] [address] Performed By: #### 5 7021-8 ####[facility] [id number] [place] [address] [place] Eosinophils/100 WBC (Bld) 3.0 % Normal [facility] Comment on above: Order Comment: Speci men Type: BLOOD SPECIMENOrdering Facility: [facility] Address: [address] [place] [address] Performed By: #### 5 7021-8 ####[facility] [id number] [place] [address] [place] Erythrocyte distribution width (RBC) [Ratio] 14.6 % Normal 11.5-15.0 [facility] Comment on above: Order Comment: Speci men Type: BLOOD SPECIMENOrdering Facility: [facility] Address: [address] [place] [address] Performed By: #### 5 7021-8 ####[facility] [id number] [place] [address] [place] Hematocrit (Bld) [Volume fraction] 28.6 % Low 39.0-51.0 [facility] Comment on above: Order Comment: Speci men Type: BLOOD SPECIMENOrdering Facility: [facility] Address: [address] [place] [address] Performed By: #### 5 7021-8 ####[facility] [id number] [place] [address] [place] Hemoglobin (Bld) [Mass/Vol] 9.0 g/dL Low 13.0-17.0 [facility] Comment on above: Order Comment: Speci men Type: BLOOD SPECIMENOrdering Facility: [facility] Address: [address] [place] [address] Performed By: #### 5 7021-8 ####[facility] [id number] [place] [address] [place] Immature granulocytes (Bld) [#/Vol] 0.05 10*3/uL Normal <0.10 [facility] Comment on above: Order Comment: Speci men Type: BLOOD SPECIMENOrdering Facility: [facility] Address: [address] [place] [address] Performed By: #### 5 7021-8 ####[facility] [id number] [place] [address] [place] Immature granulocytes/100 WBC (Bld) 0.7 % Normal [facility] Comment on above: Order Comment: Speci men Type: BLOOD SPECIMENOrdering Facility: [facility] Address: [address] [place] [address] Performed By: #### 5 7021-8 ####[facility] [id number] [place] [address] [place] Lymphocytes (Bld) [#/Vol] 1.86 10*3/uL Normal 1.00-4.00 [facility] Comment on above: Order Comment: Speci men Type: BLOOD SPECIMENOrdering Facility: [facility] Address: [address] [place] [address] Performed By: #### 5 7021-8 ####[facility] [id number] [place] [address] [place] Lymphocytes/100 WBC (Bld) 24.3 % Normal [facility] Comment on above: Order Comment: Speci men Type: BLOOD SPECIMENOrdering Facility: [facility] Address: [address] [place] [address] Performed By: #### 5 7021-8 ####[facility] [id number] [place] [address] [place] MCH (RBC) [Entitic mass] 26.8 pg Normal 26.0-34.0 [facility] Comment on above: Order Comment: Speci men Type: BLOOD SPECIMENOrdering Facility: [facility] Address: [address] [place] [address] Performed By: #### 5 7021-8 ####[facility] [id number] [place] [address] [place] MCHC (RBC) [Mass/Vol] 31.5 g/dL Normal 30.5-36.0 [facility] Comment on above: Order Comment: Speci men Type: BLOOD SPECIMENOrdering Facility: [facility] Address: [address] [place] [address] Performed By: #### 5 7021-8 ####[facility] [id number] [place] [address] [place] MCV (RBC) [Entitic vol] 85.1 fL Normal 80.0-100.0 [facility] Comment on above: Order Comment: Speci men Type: BLOOD SPECIMENOrdering Facility: [facility] Address: [address] [place] [address] Performed By: #### 5 7021-8 ####[facility] [id number] [place] [address] [place] Monocytes (Bld) [#/Vol] 0.62 10*3/uL Normal <0.87 [facility] Comment on above: Order Comment: Speci men Type: BLOOD SPECIMENOrdering Facility: [facility] Address: [address] [place] [address] Performed By: #### 5 7021-8 ####[facility]IA [id number] [place] [address] [place] Monocytes/100 WBC (Bld) 8.1 % Normal [facility] Comment on above: Order Comment: Speci men Type: BLOOD SPECIMENOrdering Facility: [facility] Address: [address] [place] [address] Performed By: #### 5 7021-8 ####[facility] [id number] [place] [address] [place] Neutrophils (Bld) [#/Vol] 4.87 10*3/uL Normal 1.45-7.50 [facility] Comment on above: Order Comment: Speci men Type: BLOOD SPECIMENOrdering Facility: [facility] Address: [address] [place] [address] Performed By: #### 5 7021-8 ####[facility] [id number] [place] [address] [place] Neutrophils/100 WBC (Bld) 63.6 % Normal [facility] Comment on above: Order Comment: Speci men Type: BLOOD SPECIMENOrdering Facility: [facility] Address: [address] [place] [address] Performed By: #### 5 7021-8 ####[facility] [id number] [place] [address] [place] Nucleated RBC (Bld) [#/Vol] 10*3/uL Normal <0.01 [facility] Comment on above: Order Comment: Speci men Type: BLOOD SPECIMENOrdering Facility: [facility] Address: [address] [place] [address] Performed By: #### 5 7021-8 ####[facility] [id number] [place] [address] [place] Nucleated RBC/100 WBC (Bld) [Ratio] 0.0 /100 WBC Normal [facility] Comment on above: Order Comment: Speci men Type: BLOOD SPECIMENOrdering Facility: [facility] Address: [address] [place] [address] Performed By: #### 5 7021-8 ####[facility] [id number] [place] [address] [place] Platelet mean volume (Bld) [Entitic vol] 9.6 fL Normal 9.0-12.7 [facility] Comment on above: Order Comment: Speci men Type: BLOOD SPECIMENOrdering Facility: [facility] Address: [address] [place] [address] Performed By: #### 5 7021-8 ####[facility] [id number] [place] [address] [place] Platelets (Bld) [#/Vol] 148 10*3/uL Low 150-400 [facility] Comment on above: Order Comment: Speci men Type: BLOOD SPECIMENOrdering Facility: [facility] Address: [address] [place] [address] Performed By: #### 5 7021-8 ####[facility] [id number] [place] [address] [place] RBC (Bld) [#/Vol] 3.36 10*6/uL Low 4.20-6.00 [facility] Comment on above: Order Comment: Speci men Type: BLOOD SPECIMENOrdering Facility: [facility] Address: [address] [place] [address] Performed By: #### 5 7021-8 ####[facility] [id number] [place] [address] [place] WBC (Bld) [#/Vol] 7.65 10*3/uL Normal 3.70-11.00 [facility] Comment on above: Order Comment: Speci men Type: BLOOD SPECIMENOrdering Facility: [facility] Address: [address] [place] [address] Performed By: #### 5 7021-8 ####[facility] [id number] [place] [address] [place] Magnesium SerPl-mCncon 10-31 Magnesium [Mass/Vol] 2.4 mg/dL High 1.7-2.3 [facility] Comment on above: Order Comment: Speci men Type: BLOOD SPECIMEN Ordering Facility: [facility] Address: [address] [place] [address] Performed By: #### 5 7021-8 #### [facility] CLIA [id number] [address] [place] [address] [place] Phosphate SerPl-mCncon 10-31 Phosphate [Mass/Vol] 2.3 mg/dL Low 2.7-4.8 [facility] Comment on above: Order Comment: Speci men Type: BLOOD SPECIMEN Ordering Facility: [facility] Address: [address] [place] [address] Performed By: #### 5 7021-8 #### [facility] CLIA [id number] [address] [place] [address] [place] Basic metabolic 2000 panelon 10-31-2023 Anion gap [Moles/Vol] 10 mmol/L Normal 9-18 [facility] Comment on above: Order Comment: Speci men Type: BLOOD SPECIMEN Ordering Facility: [facility] Address: [address] [place] [address] Performed By: #### 2 [id number], 41948-8, #### [facility] CLIA [id number] [address] [place] [address] [place] Calcium [Mass/Vol] 7.8 mg/dL Low 8.5-10.2 [facility] Comment on above: Order Comment: Speci men Type: BLOOD SPECIMEN Ordering Facility: [facility] Address: [address] [place] [address] Performed By: #### 2 777-1, 34776-4, 37887-3 #### [facility] CLIA [id number] [address] [place] [address] [place] Chloride [Moles/Vol] 115 mmol/L High 97-105 [facility] Comment on above: Order Comment: Speci men Type: BLOOD SPECIMEN Ordering Facility: [facility] Address: [address] [place], [place] [address] Performed By: #### 2 777-1, 25546-3, #### [facility] CLIA [id number] [address] [place], [place] [address] [place] CO2 [Moles/Vol] 23 mmol/L Normal 22-30 [facility] Comment on above: Order Comment: Speci men Type: BLOOD SPECIMEN Ordering Facility: [facility] Address: [address] [place] [address] Performed By: #### 2 777-1, 60088-7, #### [facility] CLIA [id number] [address] [place] [address] [place] Creatinine [Mass/Vol] 0.72 mg/dL Low 0.73-1.22 [facility] Comment on above: Order Comment: Speci men Type: BLOOD SPECIMEN Ordering Facility: [facility] Address: [address] [place] [address] Performed By: #### 2 777-1, , #### [facility] CLIA [id number] [address] [place] [address] [place] Creatinine and Glomerular filtration rate.predicted panel (S/P/Bld) 125 mL/min/1.73m??? Normal >=60 [facility] Comment on above: Order Comment: Speci men Type: BLOOD SPECIMEN Ordering Facility: [facility] Address: [address] [place] [address] Result Comment: Lor mated Glomerular Filtration Rate [...] actual GFR. Performed By: #### 2 777-1, 99780-9, #### [facility] CLIA [id number] [address] [place] [address] [place] Glucose [Mass/Vol] 93 mg/dL Normal 74-99 [facility] Comment on above: Order Comment: Sana men Type: BLOOD SPECIMEN Ordering Facility: [facility] Address: [address] [place] [address] Result Comment: The [place] [employer] (ADA) provides guidance for cutoff [...] Standards of Medical Care in Diabetes 2016, [place] [employer]. Diabetes Care. 2016.39(Suppl 1). Performed By: #### 2 777-1, , #### [facility] CLIA [id number] [address] [place] [address] [place] Potassium [Moles/Vol] 3.9 mmol/L Normal 3.7-5.1 [facility] Comment on above: Order Comment: Akbari men Type: BLOOD SPECIMEN Ordering Facility: [facility] Address: [address] [place] [address] Performed By: #### 2 777-1, 69817-4, #### [facility] CLIA [id number] [address] [place] [address] [place] Sodium [Moles/Vol] 148 mmol/L High 136-144 [facility] Comment on above: Order Comment: Akbari men Type: BLOOD SPECIMEN Ordering Facility: [facility] Address: [address] [place] [address] Performed By: #### 2 777-1, 30194-7, #### [facility] CLIA [id number] [address] [place] [address] [place] Urea nitrogen [Mass/Vol] 8 mg/dL Low 9-24 [facility] Comment on above: Order Comment: Speci men Type: BLOOD SPECIMEN Ordering Facility: [facility] Address: [address] [place] [address] Performed By: #### 2 777-1, 19242-8, #### [facility] CLIA [id number] [address] [place] [address] [place] CBC W Auto Differential pane l (Bld)on 10-31-2023 Basophils (Bld) [#/Vol] 10*3/uL Normal <0.11 [facility] Comment on above: Order Comment: Speci men Type: BLOOD SPECIMEN Ordering Facility: [facility] Address: [address] [place] [address] Performed By: #### 5 7021-8 #### [facility] CLIA [id number] [address] [place] [address] [place] Basophils/100 WBC (Bld) 0.2 % Normal [facility] Comment on above: Order Comment: Speci men Type: BLOOD SPECIMEN Ordering Facility: [facility] Address: [address] [place] [address] Performed By: #### 5 7021-8 #### [facility] CLIA [id number] [address] [place] [address] [place] Differential cell count method Nom (Bld) Auto Normal [facility] Comment on above: Order Comment: Speci men Type: BLOOD SPECIMEN Ordering Facility: [facility] Address: [address] [place] [address] Performed By: #### 5 7021-8 #### [facility] CLIA [id number] [address] [place] [address] [place] Eosinophils (Bld) [#/Vol] 0.18 10*3/uL Normal <0.46 [facility] Comment on above: Order Comment: Speci men Type: BLOOD SPECIMEN Ordering Facility: [facility] Address: [address] [place] [address] Performed By: #### 5 7021-8 #### [facility] CLIA [id number] [address] [place] [address] [place] Eosinophils/100 WBC (Bld) 1.9 % Normal [facility] Comment on above: Order Comment: Speci men Type: BLOOD SPECIMEN Ordering Facility: [facility] Address: [address] [place] [address] Performed By: #### 5 7021-8 #### [facility] CLIA [id number] [address] [place] [address] [place] Erythrocyte distribution width (RBC) [Ratio] 14.5 % Normal 11.5-15.0 [facility] Comment on above: Order Comment: Speci men Type: BLOOD SPECIMEN Ordering Facility: [facility] Address: [address] [place] [address] Performed By: #### 5 7021-8 #### [facility] CLIA [id number] [address] [place] [address] [place] Hematocrit (Bld) [Volume fraction] 30.2 % Low 39.0-51.0 [facility] Comment on above: Order Comment: Speci men Type: BLOOD SPECIMEN Ordering Facility: [facility] Address: [address] [place] [address] Performed By: #### 5 7021-8 #### [facility] CLIA [id number] [address] [place] [address] [place] Hemoglobin (Bld) [Mass/Vol] 9.4 g/dL Low 13.0-17.0 [facility] Comment on above: Order Comment: Speci men Type: BLOOD SPECIMEN Ordering Facility: [facility] Address: [address] [place] [address] Performed By: #### 5 7021-8 #### [facility] CLIA [id number] [address] [place] [address] [place] Immature granulocytes (Bld) [#/Vol] 0.06 10*3/uL Normal <0.10 [facility] Comment on above: Order Comment: Speci men Type: BLOOD SPECIMEN Ordering Facility: [facility] Address: [address] [place] [address] Performed By: #### 5 7021-8 #### [facility] CLIA [id number] [address] [place] [address] [place] Immature granulocytes/100 WBC (Bld) 0.6 % Normal [facility] Comment on above: Order Comment: Speci men Type: BLOOD SPECIMEN Ordering Facility: [facility] Address: [address] [place] [address] Performed By: #### 5 7021-8 #### [facility] CLIA [id number] [address] [place] [address] [place] Lymphocytes (Bld) [#/Vol] 1.61 10*3/uL Normal 1.00-4.00 [facility] Comment on above: Order Comment: Speci men Type: BLOOD SPECIMEN Ordering Facility: [facility] Address: [address] [place] [address] Performed By: #### 5 7021-8 #### [facility] CLIA [id number] [address] [place] [address] [place] Lymphocytes/100 WBC (Bld) 16.8 % Normal [facility] Comment on above: Order Comment: Speci men Type: BLOOD SPECIMEN Ordering Facility: [facility] Address: [address] [place] [address] Performed By: #### 5 7021-8 #### [facility] CLIA [id number] [address] [place] [address] [place] MCH (RBC) [Entitic mass] 26.5 pg Normal 26.0-34.0 [facility] Comment on above: Order Comment: Speci men Type: BLOOD SPECIMEN Ordering Facility: [facility] Address: [address] [place] [address] Performed By: #### 5 7021-8 #### [facility] CLIA [id number] [address] [place] [address] [place] MCHC (RBC) [Mass/Vol] 31.1 g/dL Normal 30.5-36.0 [facility] Comment on above: Order Comment: Speci men Type: BLOOD SPECIMEN Ordering Facility: [facility] Address: [address] [place] [address] Performed By: #### 5 7021-8 #### [facility] CLIA [id number] [address] [place] [address] [place] MCV (RBC) [Entitic vol] 85.1 fL Normal 80.0-100.0 [facility] Comment on above: Order Comment: Speci men Type: BLOOD SPECIMEN Ordering Facility: [facility] Address: [address] [place] [address] Performed By: #### 5 7021-8 #### [facility] CLIA [id number] [address] [place] [address] [place] Monocytes (Bld) [#/Vol] 0.88 10*3/uL High <0.87 [facility] Comment on above: Order Comment: Speci men Type: BLOOD SPECIMEN Ordering Facility: [facility] Address: [address] [place] [address] Performed By: #### 5 7021-8 #### [facility] CLIA [id number] [address] [place] [address] [place] Monocytes/100 WBC (Bld) 9.2 % Normal [facility] Comment on above: Order Comment: Speci men Type: BLOOD SPECIMEN Ordering Facility: [facility] Address: [address] [place] [address] Performed By: #### 5 7021-8 #### [facility] CLIA [id number] [address] [place] [address] [place] Neutrophils (Bld) [#/Vol] 6.84 10*3/uL Normal 1.45-7.50 [facility] Comment on above: Order Comment: Speci men Type: BLOOD SPECIMEN Ordering Facility: [facility] Address: [address] [place] [address] Performed By: #### 5 7021-8 #### [facility] CLIA [id number] [address] [place] [address] [place] Neutrophils/100 WBC (Bld) 71.3 % Normal [facility] Comment on above: Order Comment: Speci men Type: BLOOD SPECIMEN Ordering Facility: [facility] Address: [address] [place] [address] Performed By: #### 5 7021-8 #### [facility] CLIA [id number] [address] [place] [address] [place] Nucleated RBC (Bld) [#/Vol] 10*3/uL Normal <0.01 [facility] Comment on above: Order Comment: Speci men Type: BLOOD SPECIMEN Ordering Facility: [facility] Address: [address] [place] [address] Performed By: #### 5 7021-8 #### [facility] CLIA [id number] [address] [place] [address] [place] Nucleated RBC/100 WBC (Bld) [Ratio] 0.0 /100 WBC Normal [facility] Comment on above: Order Comment: Speci men Type: BLOOD SPECIMEN Ordering Facility: [facility] Address: [address] [place] [address] Performed By: #### 5 7021-8 #### [facility] CLIA [id number] [address] [place] [address] [place] Platelet mean volume (Bld) [Entitic vol] 9.8 fL Normal 9.0-12.7 [facility] Comment on above: Order Comment: Speci men Type: BLOOD SPECIMEN Ordering Facility: [facility] Address: [address] [place] [address] Performed By: #### 5 7021-8 #### [facility] CLIA [id number] [address] [place] [address] [place] Platelets (Bld) [#/Vol] 144 10*3/uL Low 150-400 [facility] Comment on above: Order Comment: Speci men Type: BLOOD SPECIMEN Ordering Facility: [facility] Address: [address] [place] [address] Result Comment: Resu lts checked and verified.No clot detected. Performed By: #### 5 7021-8 #### [facility] CLIA [id number] [address] [place] [address] [place] RBC (Bld) [#/Vol] 3.55 10*6/uL Low 4.20-6.00 [facility] Comment on above: Order Comment: Speci men Type: BLOOD SPECIMEN Ordering Facility: [facility] Address: [address] [place] [address] Performed By: #### 5 7021-8 #### [facility] CLIA [id number] [address] [place] [address] [place] WBC (Bld) [#/Vol] 9.59 10*3/uL Normal 3.70-11.00 [facility] Comment on above: Order Comment: Speci men Type: BLOOD SPECIMEN Ordering Facility: [facility] Address: [address] [place] [address] Performed By: #### 5 7021-8 #### [facility] CLIA [id number] [address] [place] [address] [place] CBC panel Auto (Bld)on 10-30 Erythrocyte distribution width (RBC) [Ratio] 14.5 % Normal 11.5-15.0 [facility] Comment on above: Order Comment: Speci men Type: BLOOD SPECIMEN Ordering Facility: [facility] Address: [address] [place] [address] Performed By: #### 5 7021-8 #### [facility] CLIA [id number] [address] [place] [address] [place] Hematocrit (Bld) [Volume fraction] 28.6 % Low 39.0-51.0 [facility] Comment on above: Order Comment: Speci men Type: BLOOD SPECIMEN Ordering Facility: [facility] Address: [address] [place] [address] Performed By: #### 5 7021-8 #### [facility] CLIA [id number] [address] [place] [address] [place] Hemoglobin (Bld) [Mass/Vol] 9.1 g/dL Low 13.0-17.0 [facility] Comment on above: Order Comment: Speci men Type: BLOOD SPECIMEN Ordering Facility: [facility] Address: [address] [place] [address] Performed By: #### 5 7021-8 #### [facility] CLIA [id number] [address] [place] [address] [place] MCH (RBC) [Entitic mass] 27.1 pg Normal 26.0-34.0 [facility] Comment on above: Order Comment: Speci men Type: BLOOD SPECIMEN Ordering Facility: [facility] Address: [address] [place] [address] Performed By: #### 5 7021-8 #### [facility] CLIA [id number] [address] [place] [address] [place] MCHC (RBC) [Mass/Vol] 31.8 g/dL Normal 30.5-36.0 [facility] Comment on above: Order Comment: Speci men Type: BLOOD SPECIMEN Ordering Facility: [facility] Address: [address] [place] [address] Performed By: #### 5 7021-8 #### [facility] CLIA [id number] [address] [place] [address] [place] MCV (RBC) [Entitic vol] 85.1 fL Normal 80.0-100.0 [facility] Comment on above: Order Comment: Speci men Type: BLOOD SPECIMEN Ordering Facility: [facility] Address: [address] [place] [address] Performed By: #### 5 7021-8 #### [facility] CLIA [id number] [address] [place] [address] [place] Nucleated RBC (Bld) [#/Vol] 10*3/uL Normal <0.01 [facility] Comment on above: Order Comment: Speci men Type: BLOOD SPECIMEN Ordering Facility: [facility] Address: [address] [place] [address] Performed By: #### 5 7021-8 #### [facility] CLIA [id number] [address] [place] [address] [place] Platelet mean volume (Bld) [Entitic vol] 10.1 fL Normal 9.0-12.7 [facility] Comment on above: Order Comment: Speci men Type: BLOOD SPECIMEN Ordering Facility: [facility] Address: [address] [place] [address] Performed By: #### 5 7021-8 #### [facility] CLIA [id number] [address] [place] [address] [place] Platelets (Bld) [#/Vol] 180 10*3/uL Normal 150-400 [facility] Comment on above: Order Comment: Speci men Type: BLOOD SPECIMEN Ordering Facility: [facility] Address: [address] [place] [address] Performed By: #### 5 7021-8 #### [facility] CLIA [id number] [address] [place] [address] [place] RBC (Bld) [#/Vol] 3.36 10*6/uL Low 4.20-6.00 [facility] Comment on above: Order Comment: Speci men Type: BLOOD SPECIMEN Ordering Facility: [facility] Address: [address] [place] [address] Performed By: #### 5 7021-8 #### [facility] CLIA [id number] [address] [place] [address] [place] WBC (Bld) [#/Vol] 10.06 10*3/uL Normal 3.70-11.00 [facility] Comment on above: Order Comment: Speci men Type: BLOOD SPECIMEN Ordering Facility: [facility] Address: [address] [place] [address] Performed By: #### 5 7021-8 #### [facility] CLIA [id number] [address] [place] [address] [place] CONSULT PROGon 10-31-2023 CONSULT PROG HNO ID: [id number] Author: HEAVEN CAMACHO MD Service: Urology Author Type: Resident Type: Consult Progress Note Filed: 10/31/2023 06:56 Note Text: [facility] UROLOGY PROGRESS NOTE Name: Johnny Devine Bed: [id number] Date: 10/31/2023 After Hours [facility] Urology Service Pager: [phone] ASSESSMENT AND PLAN Johnny Devine is a [...] affiliate, Dr. Joseph Camacho MD Urology Resident [facility] Pager [phone] For weekend or after hours issues please page the on-call urology pager [phone] 10/31/2023 6:48 AM Subjective SUBJECTIVE - See [...] Imaging All relevant recent imaging reviewed Normal [facility] Comprehensive metabolic 2000 panelon 10-31-2023 Albumin [Mass/Vol] 3.1 g/dL Low 3.9-4.9 [facility] Comment on above: Order Comment: Speci men Type: BLOOD SPECIMEN Ordering Facility: [facility] Address: [address] [place] [address] Performed By: #### 5 7021-8 #### [facility] CLIA [id number] [address] [place] [address] [place] ALP [Catalytic activity/Vol] 31 U/L Low 38-113 [facility] Comment on above: Order Comment: Speci men Type: BLOOD SPECIMEN Ordering Facility: [facility] Address: [address] [place] [address] Performed By: #### 5 7021-8 #### [facility] CLIA [id number] [address] [place] [address] [place] ALT [Catalytic activity/Vol] 6 U/L Low 10-54 [facility] Comment on above: Order Comment: Speci men Type: BLOOD SPECIMEN Ordering Facility: [facility] Address: [address] [place] [address] Performed By: #### 5 7021-8 #### [facility] CLIA [id number] [address] [place] [address] [place] Anion gap [Moles/Vol] 6 mmol/L Low 9-18 [facility] Comment on above: Order Comment: Speci men Type: BLOOD SPECIMEN Ordering Facility: [facility] Address: [address] [place] [address] Performed By: #### 5 7021-8 #### [facility] CLIA [id number] [address] [place] [address] [place] AST [Catalytic activity/Vol] 13 U/L Low 14-40 [facility] Comment on above: Order Comment: Speci men Type: BLOOD SPECIMEN Ordering Facility: [facility] Address: [address] [place] [address] Performed By: #### 5 7021-8 #### [facility] CLIA [id number] [address] [place] [address] [place] Bilirubin [Mass/Vol] mg/dL Low 0.2-1.3 [facility] Comment on above: Order Comment: Speci men Type: BLOOD SPECIMEN Ordering Facility: [facility] Address: [address] [place] [address] Performed By: #### 5 7021-8 #### [facility] CLIA [id number] [address] [place] [address] [place] Calcium [Mass/Vol] 7.4 mg/dL Low 8.5-10.2 [facility] Comment on above: Order Comment: Speci men Type: BLOOD SPECIMEN Ordering Facility: [facility] Address: [address] [place] [address] Performed By: #### 5 7021-8 #### [facility] CLIA [id number] [address] [place] [address] [place] Chloride [Moles/Vol] 115 mmol/L High 97-105 [facility] Comment on above: Order Comment: Speci men Type: BLOOD SPECIMEN Ordering Facility: [facility] Address: [address] [place] [address] Performed By: #### 5 7021-8 #### [facility] CLIA [id number] [address] [place] [address] [place] CO2 [Moles/Vol] 26 mmol/L Normal 22-30 [facility] Comment on above: Order Comment: Speci men Type: BLOOD SPECIMEN Ordering Facility: [facility] Address: [address] [place] [address] Performed By: #### 5 7021-8 #### [facility] CLIA [id number] [address] [place] [address] [place] Creatinine [Mass/Vol] 0.73 mg/dL Normal 0.73-1.22 [facility] Comment on above: Order Comment: Sana zuñiga Type: BLOOD SPECIMEN Ordering Facility: [facility] Address: [address] [place] [address] Performed By: #### 5 7021-8 #### [facility] CLIA [id number] [address] [place] [address] [place] Creatinine and Glomerular filtration rate.predicted panel (S/P/Bld) 125 mL/min/1.73m??? Normal >=60 [facility] Comment on above: Order Comment: Sana zuñiga Type: BLOOD SPECIMEN Ordering Facility: [facility] Address: [address] [place] [address] Result Comment: Lor mated Glomerular Filtration Rate [...] GFR. Performed By: #### 5 7021-8 #### [facility] CLIA [id number] [address] [place] [address] [place] Glucose [Mass/Vol] 103 mg/dL High 74-99 [facility] Comment on above: Order Comment: Akbari men Type: BLOOD SPECIMEN Ordering Facility: [facility] Address: [address] [place] [address] Result Comment: The [place] [employer] (ADA) provides guidance for cutoff [...] Standards of Medical Care in Diabetes 2016, [place] [employer]. Diabetes Care. 2016.39(Suppl 1). Performed By: #### 5 7021-8 #### [facility] CLIA [id number] [address] [place] [address] [place] Potassium [Moles/Vol] 4.0 mmol/L Normal 3.7-5.1 [facility] Comment on above: Order Comment: Speci men Type: BLOOD SPECIMEN Ordering Facility: [facility] Address: [address] [place] [address] Performed By: #### 5 7021-8 #### [facility] CLIA [id number] [address] [place] [address] [place] Protein [Mass/Vol] 5.6 g/dL Low 6.3-8.0 [facility] Comment on above: Order Comment: Speci men Type: BLOOD SPECIMEN Ordering Facility: [facility] Address: [address] [place] [address] Performed By: #### 5 7021-8 #### [facility] CLIA [id number] [address] [place] [address] [place] Sodium [Moles/Vol] 147 mmol/L High 136-144 [facility] Comment on above: Order Comment: Speci men Type: BLOOD SPECIMEN Ordering Facility: [facility] Address: [address] [place] [address] Performed By: #### 5 7021-8 #### [facility] CLIA [id number] [address] [place] [address] [place] Urea nitrogen [Mass/Vol] 9 mg/dL Normal 9-24 [facility] Comment on above: Order Comment: Speci men Type: BLOOD SPECIMEN Ordering Facility: [facility] Address: [address] [place] [address] Performed By: #### 5 7021-8 #### [facility] CLIA [id number] [address] [place] [address] [place] [address] [place] [id number] 10-31-2023 ECG01 Ventricular Rate : 9 3 BPM Atrial Rate : 93 BPM P-R Interval : 146 ms QRS Duration : 90 ms Q-T Interval : 394 ms QTC Calculation(Bazett) : 489 ms Calculated P [place] : 7 degrees Calculated R [place] : 11 degrees Calculated T [place] : -11 degrees NORMAL SINUS RHYTHM ANTEROLATERAL T WAVE ABNORMALITY BORDERLINE PROLONGED QTC ABNORMAL ECG Confirmed by TRENT BYRD MD ([id number]) on 11/06/2023 9:42:18 AM NAME : JOHNNY DEVINE PID : [id number] : 1990 Gender : Male Race : ORD : Procedure Date : Oct 31 2023 15:33:44 Edit Date : Nov 06 2023 09:42:18 Diagnosis: NORMAL SINUS RHYTHM ANTEROLATERAL T WAVE ABNORMALITY BORDERLINE PROLONGED QTC ABNORMAL ECG Confirmed by TRENT BYRD MD ([id number]) on 11/06/2023 9:42:18 AM Test Reason : AMET Location : 74 : 1 1- Overread By : TRENT BYRD MD Edited By : TRENT BYRD MD Referred By : PHOENIX CARDENAS Acquired by : MARI DUMONT [facility] MEDICAL EMERon 10-31-2023 MEDICAL FROEST HNO ID: [id number] Author: PASTORA KINGSLEY APRN.BUILDING RIGGER Service: Critical Care Author Type: Nurse Practitioner [...] October 31, 2023 TIME: 4:13 PM Normal [facility] Magnesium SerPl-mCncon 10-30 Magnesium [Mass/Vol] 2.2 mg/dL Normal 1.7-2.3 [facility] Comment on above: Order Comment: Speci men Type: BLOOD SPECIMENOrdering Facility: [facility] Address: [address] [place] [address] Performed By: #### 1 9123-9, 2777-1 ####[facility] [id number] [place] [address] [place] Magnesium [Mass/Vol] 2.1 mg/dL Normal 1.7-2.3 [facility] Comment on above: Order Comment: Speci men Type: BLOOD SPECIMEN Ordering Facility: [facility] Address: [address] [place] [address] Performed By: #### 2 777-1, 76106-3, 99578-5 #### [facility] CLIA [id number] [address] [place] [address] [place] NURSING PROGon 10-31-2023 NURSING PROG HNO ID: [id number] Author: PAZ RIGGINS RN Service: Nursing Author Type: Registered Nurse Type: Nursing Progress Note Filed: 10/31/2023 16:32 Note Text: Called into patients room by brother who stated patient was shaking hard and having seizure like activity, on entering room patient was tachypneic and breathing hard, AMET activated. Chest xray ordered, EKG done, labs done, oxygen 89 on RA, 2L NC applied. Normal [facility] Phosphate SerPl-mCncon 10-30 Phosphate [Mass/Vol] 1.4 mg/dL Low 2.7-4.8 [facility] Comment on above: Order Comment: Speci men Type: BLOOD SPECIMENOrdering Facility: [facility] Address: [address] [place] [address] Performed By: #### 1 9123-9, 2777-1 ####[facility] [id number] [place] [address] [place] Phosphate [Mass/Vol] 2.1 mg/dL Low 2.7-4.8 [facility] Comment on above: Order Comment: Speci men Type: BLOOD SPECIMEN Ordering Facility: [facility] Address: [address] [place] [address] Performed By: #### 2 777-1, 28773-0, 17735-1 #### [facility] CLIA [id number] [address] [place] [address] [place] [address] [place] XR ABDOMEN 1V [...] abnormality. Lung bases are not well seen. Esthetic Dermatologist: PSCB Transcribe Date/Time: Oct 31 2023 5:15P Dictated by : LEONEL ALONZO MD This examination was interpreted and the report reviewed and electronically signed by: LEONEL ALONZO MD on Oct 31 2023 5:22PM EST [id number] Normal [facility] XR CHEST 1V FRONTAL PORTon 0 [...] cardiomediastinal silhouette. Other: . IMPRESSION: See result. Esthetic Dermatologist: PSCB Transcribe Date/Time: Oct 31 2023 4:14P Dictated by : SHEA WORTHY MD This examination was interpreted and the report reviewed and electronically signed by: SHEA WORTHY MD on Oct 31 2023 4:15PM EST [id number] Normal [facility] ANES POSTPROC EVALon 024 ANES POSTPROC EVAL HNO ID: [id number] Author: JEREMIE JOAQUIN MD Service: ? Author Type: Anesthesiologist Type: Anesthesia Postprocedure Evaluation Filed: 10/30/2023 11:55 Note Text: POST ANESTHESIA EVALUATION NOTE : 1990 Procedure Summary Date: 10/30/23 [address] Start: 731 Anesthesia Stop: 902 Procedure: [...] October 30, 2023 TIME: 11:46 AM CSN: [id number] Normal [facility] ANES PRE-OPon 10-30-2023 ANES PRE-OP HNO ID: [id number] Author: JEREMIE JOAQUIN MD Service: ? Author Type: Anesthesiologist Type: Anesthesia Preprocedure Evaluation Filed: 10/30/2023 08:16 Note Text: ANESTHESIOLOGY DAY OF SURGERY NOTE : 1990 Procedure Information Date/Time: 10/30/23729 Procedure: DORSAL SLIT FORESKIN EXCEPT (Penis) Location: [facility]IN [facility] Surgeons: Rafael [...] and consent discussed: yes. Patient / Responsible Libertarian agrees to proceed: yes Patient / Surrogate [...] mL MUCOUS MEMBRANE ONCE - phenol 1 [place] (CHLORASEPTIC) 1 [place] MUCOUS MEMBRANE (TOPICAL MOUTH AND THROAT) q [...] INTRAVENOUS DAILY (6 AM) - phenol 1 [place] (CHLORASEPTIC) 1 [place] MUCOUS MEMBRANE (TOPICAL MOUTH AND THROAT) q [...] MORNING F (more content not included)... Normal [facility] Basic metabolic 2000 panelon 10-30-2023 Anion gap [Moles/Vol] 12 mmol/L Normal 9-18 [facility] Comment on above: Order Comment: Speci men Type: BLOOD SPECIMEN Ordering Facility: [facility] Address: [address] [place] [address] Performed By: #### 2 4321-2, , 2776-08 #### [facility] CLIA [id number] [address] [place] [address] [place] Calcium [Mass/Vol] 7.4 mg/dL Low 8.5-10.2 [facility] Comment on above: Order Comment: Speci men Type: BLOOD SPECIMEN Ordering Facility: [facility] Address: [address] [place] [address] Performed By: #### 2 4321-2, , 2776-08 #### [facility] CLIA [id number] [address] [place] [address] [place] Chloride [Moles/Vol] 113 mmol/L High 97-105 [facility] Comment on above: Order Comment: Speci men Type: BLOOD SPECIMEN Ordering Facility: [facility] Address: [address] [place], [place] [address] Performed By: #### 2 4321-2, , 2776-08 #### [facility] CLIA [id number] [address] [place] [address] [place] CO2 [Moles/Vol] 24 mmol/L Normal 22-30 [facility] Comment on above: Order Comment: Speci men Type: BLOOD SPECIMEN Ordering Facility: [facility] Address: [address] [place], [place] [address] Performed By: #### 2 4321-2, , 2776-08 #### [facility] CLIA [id number] [address] [place] [address] [place] Creatinine [Mass/Vol] 0.69 mg/dL Low 0.73-1.22 [facility] Comment on above: Order Comment: Speci men Type: BLOOD SPECIMEN Ordering Facility: [facility] Address: [address] [place] [address] Performed By: #### 2 4321-2, 13341-7, 2777-1 #### [facility] CLIA [id number] [address] [place] [address] [place] Creatinine and Glomerular filtration rate.predicted panel (S/P/Bld) 127 mL/min/1.73m??? Normal >=60 [facility] Comment on above: Order Comment: Sana zuñiga Type: BLOOD SPECIMEN Ordering Facility: [facility] Address: [address] [place] [address] Result Comment: Lor mated Glomerular Filtration Rate [...] actual GFR. Performed By: #### 2 4321-2, 31342-0, 2777- #### [facility] CLIA [id number] [address] [place] [address] [place] Glucose [Mass/Vol] 98 mg/dL Normal 74-99 [facility] Comment on above: Order Comment: Sana zuñiga Type: BLOOD SPECIMEN Ordering Facility: [facility] Address: [address] [place] [address] Result Comment: The [place] Diabetes [employer] (ADA) provides guidance for cutoff [...] Standards of Medical Care in Diabetes 2016, [place] [employer]. Diabetes Care. 2016.39(Suppl 1). Performed By: #### 2 4321-2, 25926-2, 2776- #### [facility] CLIA [id number] [address] [place] [address] [place] Potassium [Moles/Vol] 3.6 mmol/L Low 3.7-5.1 [facility] Comment on above: Order Comment: Speci men Type: BLOOD SPECIMEN Ordering Facility: [facility] Address: [address] [place] [address] Performed By: #### 2 4321-2, , 2776-08 #### [facility] CLIA [id number] [address] [place] [address] [place] Sodium [Moles/Vol] 149 mmol/L High 136-144 [facility] Comment on above: Order Comment: Speci men Type: BLOOD SPECIMEN Ordering Facility: [facility] Address: [address] [place] [address] Performed By: #### 2 4321-2, , 2776-08 #### [facility] CLIA [id number] [address] [place] [address] [place] Urea nitrogen [Mass/Vol] 9 mg/dL Normal 9-24 [facility] Comment on above: Order Comment: Speci men Type: BLOOD SPECIMEN Ordering Facility: [facility] Address: [address] [place] [address] Performed By: #### 2 4321-2, , 2776-08 #### [facility] CLIA [id number] [address] [place] [address] [place] CBC W Auto Differential pane l (Bld)on 10-30-2023 Basophils (Bld) [#/Vol] 0.03 10*3/uL Normal <0.11 [facility] Comment on above: Order Comment: Speci men Type: BLOOD SPECIMEN Ordering Facility: [facility] Address: [address] [place] [address] Performed By: #### 5 7021-8 #### [facility] CLIA [id number] [address] [place] [address] [place] Basophils/100 WBC (Bld) 0.3 % Normal [facility] Comment on above: Order Comment: Speci men Type: BLOOD SPECIMEN Ordering Facility: [facility] Address: [address] [place] [address] Performed By: #### 5 7021-8 #### [facility] CLIA [id number] [address] [place] [address] [place] Differential cell count method Nom (Bld) Auto Normal [facility] Comment on above: Order Comment: Speci men Type: BLOOD SPECIMEN Ordering Facility: [facility] Address: [address] [place] [address] Performed By: #### 5 7021-8 #### [facility] CLIA [id number] [address] [place] [address] [place] Eosinophils (Bld) [#/Vol] 0.07 10*3/uL Normal <0.46 [facility] Comment on above: Order Comment: Speci men Type: BLOOD SPECIMEN Ordering Facility: [facility] Address: [address] [place] [address] Performed By: #### 5 7021-8 #### [facility] CLIA [id number] [address] [place] [address] [place] Eosinophils/100 WBC (Bld) 0.6 % Normal [facility] Comment on above: Order Comment: Speci men Type: BLOOD SPECIMEN Ordering Facility: [facility] Address: [address] [place] [address] Performed By: #### 5 7021-8 #### [facility] CLIA [id number] [address] [place] [address] [place] Erythrocyte distribution width (RBC) [Ratio] 14.5 % Normal 11.5-15.0 [facility] Comment on above: Order Comment: Speci men Type: BLOOD SPECIMEN Ordering Facility: [facility] Address: [address] [place] [address] Performed By: #### 5 7021-8 #### [facility] CLIA [id number] [address] [place] [address] [place] Hematocrit (Bld) [Volume fraction] 31.1 % Low 39.0-51.0 [facility] Comment on above: Order Comment: Speci men Type: BLOOD SPECIMEN Ordering Facility: [facility] Address: [address] [place] [address] Performed By: #### 5 7021-8 #### [facility] CLIA [id number] [address] [place] [address] [place] Hemoglobin (Bld) [Mass/Vol] 9.8 g/dL Low 13.0-17.0 [facility] Comment on above: Order Comment: Speci men Type: BLOOD SPECIMEN Ordering Facility: [facility] Address: [address] [place] [address] Performed By: #### 5 7021-8 #### [facility] CLIA [id number] [address] [place] [address] [place] Immature granulocytes (Bld) [#/Vol] 0.06 10*3/uL Normal <0.10 [facility] Comment on above: Order Comment: Speci men Type: BLOOD SPECIMEN Ordering Facility: [facility] Address: [address] [place] [address] Performed By: #### 5 7021-8 #### [facility] CLIA [id number] [address] [place] [address] [place] Immature granulocytes/100 WBC (Bld) 0.5 % Normal [facility] Comment on above: Order Comment: Speci men Type: BLOOD SPECIMEN Ordering Facility: [facility] Address: [address] [place] [address] Performed By: #### 5 7021-8 #### [facility] CLIA [id number] [address] [place] [address] [place] Lymphocytes (Bld) [#/Vol] 1.41 10*3/uL Normal 1.00-4.00 [facility] Comment on above: Order Comment: Speci men Type: BLOOD SPECIMEN Ordering Facility: [facility] Address: [address] [place] [address] Performed By: #### 5 7021-8 #### [facility] CLIA [id number] [address] [place] [address] [place] Lymphocytes/100 WBC (Bld) 12.0 % Normal [facility] Comment on above: Order Comment: Speci men Type: BLOOD SPECIMEN Ordering Facility: [facility] Address: [address] [place] [address] Performed By: #### 5 7021-8 #### [facility] CLIA [id number] [address] [place] [address] [place] MCH (RBC) [Entitic mass] 26.6 pg Normal 26.0-34.0 [facility] Comment on above: Order Comment: Speci men Type: BLOOD SPECIMEN Ordering Facility: [facility] Address: [address] [place] [address] Performed By: #### 5 7021-8 #### [facility] CLIA [id number] [address] [place] [address] [place] MCHC (RBC) [Mass/Vol] 31.5 g/dL Normal 30.5-36.0 [facility] Comment on above: Order Comment: Speci men Type: BLOOD SPECIMEN Ordering Facility: [facility] Address: [address] [place] [address] Performed By: #### 5 7021-8 #### [facility] CLIA [id number] [address] [place] [place] [address] [place] MCV (RBC) [Entitic vol] 84.5 fL Normal 80.0-100.0 [facility] Comment on above: Order Comment: Speci men Type: BLOOD SPECIMEN Ordering Facility: [facility] Address: [address] [place] [address] Performed By: #### 5 7021-8 #### [facility] CLIA [id number] [address] [place] [address] [place] Monocytes (Bld) [#/Vol] 1.18 10*3/uL High <0.87 [facility] Comment on above: Order Comment: Speci men Type: BLOOD SPECIMEN Ordering Facility: [facility] Address: [address] [place] [address] Performed By: #### 5 7021-8 #### [facility] CLIA [id number] [address] [place] [address] [place] Monocytes/100 WBC (Bld) 10.1 % Normal [facility] Comment on above: Order Comment: Speci men Type: BLOOD SPECIMEN Ordering Facility: [facility] Address: [address] [place] [address] Performed By: #### 5 7021-8 #### [facility] CLIA [id number] [address] [place] [address] [place] Neutrophils (Bld) [#/Vol] 8.98 10*3/uL High 1.45-7.50 [facility] Comment on above: Order Comment: Speci men Type: BLOOD SPECIMEN Ordering Facility: [facility] Address: [address] [place] [address] Performed By: #### 5 7021-8 #### [facility] CLIA [id number] [address] [place] [address] [place] Neutrophils/100 WBC (Bld) 76.5 % Normal [facility] Comment on above: Order Comment: Speci men Type: BLOOD SPECIMEN Ordering Facility: [facility] Address: [address] [place], [place] [address] Performed By: #### 5 7021-8 #### [facility] CLIA [id number] [address] [place] [address] [place] Nucleated RBC (Bld) [#/Vol] 10*3/uL Normal <0.01 [facility] Comment on above: Order Comment: Speci men Type: BLOOD SPECIMEN Ordering Facility: [facility] Address: [address] [place] [address] Performed By: #### 5 7021-8 #### [facility] CLIA [id number] [address] [place] [address] [place] Nucleated RBC/100 WBC (Bld) [Ratio] 0.0 /100 WBC Normal [facility] Comment on above: Order Comment: Speci men Type: BLOOD SPECIMEN Ordering Facility: [facility] Address: [address] [place] [address] Performed By: #### 5 7021-8 #### [facility] CLIA [id number] [address] [place] [address] [place] Platelet mean volume (Bld) [Entitic vol] 9.7 fL Normal 9.0-12.7 [facility] Comment on above: Order Comment: Speci men Type: BLOOD SPECIMEN Ordering Facility: [facility] Address: [address] [place] [address] Performed By: #### 5 7021-8 #### [facility] CLIA [id number] [address] [place] [address] [place] Platelets (Bld) [#/Vol] 138 10*3/uL Low 150-400 [facility] Comment on above: Order Comment: Speci men Type: BLOOD SPECIMEN Ordering Facility: [facility] Address: [address] [place] [address] Performed By: #### 5 7021-8 #### [facility] CLIA [id number] [address] [place] [address] [place] RBC (Bld) [#/Vol] 3.68 10*6/uL Low 4.20-6.00 [facility] Comment on above: Order Comment: Speci men Type: BLOOD SPECIMEN Ordering Facility: [facility] Address: [address] [place] [address] Performed By: #### 5 7021-8 #### [facility] CLIA [id number] [address] [place] [address] [place] WBC (Bld) [#/Vol] 11.73 10*3/uL High 3.70-11.00 [facility] Comment on above: Order Comment: Speci men Type: BLOOD SPECIMEN Ordering Facility: [facility] Address: [address] [place] [address] Performed By: #### 5 7021-8 #### [facility] CLIA [id number] [address] [place] [address] [place] CONSULTon 10-30-2023 CONSULT HNO ID: [id number] Author: RAFAEL GIRALDO MD Service: Urology Author [...] the meatal orifice was visualized, an 8 Iranian Haskins catheter was sterilely placed. However, the [...] Dr. Jay Alan MD Resident PGY-2 Urology [facility] [place] [facility] Pager [phone] After hours and on weekend concierge receptionist pager [phone] HPI Johnny Devine is a 33 year [...] the meatal orifice was visualized, an 8 Iranian Haskins catheter was sterilely placed. [facility]U was [...] CONGESTIONDisp: Rfl: guanFACINE (INTUNIV ER) 4 mg [id number] 4 mg by mouth onc (more content not included)... Normal [facility] Magnesium SerPl-mCncon 10-29 Magnesium [Mass/Vol] 2.0 mg/dL Normal 1.7-2.3 [facility] Comment on above: Order Comment: Speci men Type: BLOOD SPECIMENOrdering Facility: [facility] Address: [address] [place] [address] Performed By: #### 2 4321-2, 99964-1, 2777-1 ####[facility] [id number] [address] OF [facility] NURSING PROGon 10-30-2023 NURSING PROG HNO ID: [id number] Author: SHAHRIAR FARFAN, RN Service: Nursing Author Type: Registered Nurse Type: Nursing Progress Note Filed: 10/30/2023 09:52 Note Text: Pt awake, opens eyes spontaneously, MEDINA to command, generalized weakness. Nonverbal at baseline. VSS. Appears comfortable, no grimacing, resting Normal [facility] NURSING PROG HNO ID: [id number] Author: SHAHRIAR FARFAN, RN Service: Nursing Author [...] in protecting the patient's safety: Alarms, Horticultural Farmer/Sitter, Bed in Low/Locked Position Next, a comprehensive assessment was performed and warranted placing the patient in Soft Bilateral Wrists, the least restrictive restraint needed to protect the patient's safety. Ongoing safety assessments and evaluation for earliest removal of restraints will be performed. DATE: October 30, 2023 TIME: 9:48 AM Shahriar Farfan RN Normal [facility] NURSING PROG HNO ID: [id number] Author: LEONARD FRANCIS JR, RN Service: Nursing Author Type: Registered Nurse Type: Nursing Progress Note Filed: 10/30/2023 01:11 Note Text: 2200 PM: PT does not have have a haskins catheter post op. Per report, prior to OR PT was admitted from OSH with a pediatric haskins in place due to difficulties with normal catheter. [id number] Gen surg notified. PT is clean and [...] Gen surg at bedside Leonard PINEDA. Normal [facility] OPERATIVE NOon 10-30-2023 OPERATIVE NO HNO ID: [id number] Author: HERMAN JOHNSON MD Service: Urology Author Type: Resident Type: Operative Report Filed: 10/30/2023 09:08 Note Text: Attestation signed by Oscar Ruiz MD at 10/30/2023 9:20 AM Attestation The primary proceduralist, Wale Thomas, performed the entire procedure with the assistance of Dr. Johnson. I agree with the documentation above. [facility] UROLOGY OPERATIVE REPORT Patient Name: Johnny Devine Patient Log ID: [id number] Surgery Date: 10/30/2023 Incision/Procedure Start Time: 8:03 AM Incision Close/Procedure End Time: 8:17 AM Surgeon(s) and Shipping Associate(s): Surgeon(s) and Role: * Oscar Ruiz MD [...] I agree with the documentation above. Normal [facility] Phosphate SerPl-mCncon 10-29 Phosphate [Mass/Vol] 2.2 mg/dL Low 2.7-4.8 [facility] Comment on above: Order Comment: Speci men Type: BLOOD SPECIMENOrdering Facility: [facility] Address: [address] [place] [address] Performed By: #### 2 4321-2, 47065-9, 2777-1 ####[facility] [id number] [place] [address] [place] XR ABDOMEN 1V [...] likely an ileus. Sigmoid distention appears improved Esthetic Dermatologist: PSCB Transcribe Date/Time: Oct 30 2023 7:41A Dictated by : RYAN MORRIS MD This examination was interpreted and the report reviewed and electronically signed by: RYAN MORRIS MD on Oct 30 2023 7:43AM EST [id number] Normal [facility] ANES POSTPROC EVALon 024 ANES POSTPROC EVAL HNO ID: [id number] Author: DORIE TENA DO Service: ? Author Type: Anesthesiologist Type: Anesthesia Postprocedure Evaluation Filed: 10/29/2023 14:37 Note Text: POST ANESTHESIA EVALUATION NOTE : 1990 Procedure Summary Date: 10/29/23 Room / Location: [address] [facility] Anesthesia Start: 0948 Anesthesia Stop: 1216 [...] October 29, 2023 TIME: 2:34 PM CSN: [id number] Normal [facility] ANES PRE-OPon 10-29-2023 ANES PRE-OP HNO ID: [id number] Author: KENZIE MORE APRN.BRUSH MACHINE SETTER Service: ? Author Type: Nurse Restaurant Crew Type: Anesthesia Preprocedure Evaluation Filed: 10/29/2023 09:58 Note Text: ANESTHESIOLOGY DAY OF SURGERY NOTE : 1990 Procedure Information Anesthesia Start Date/Time: 10/29/23947 Procedure: EXPLORATORY LAPAROTOMY (Abdomen) Location: MAIN [facility] Surgeons: Samuel Robin MD [...] and consent discussed: yes. Patient / Responsible Libertarian agrees to proceed: yes Patient / Surrogate [...] HR - [Held on Transfer] phenol 1 [place] (CHLORASEPTIC) 1 [place] MUCOUS MEMBRANE (TOPICAL MOUTH AND THROAT) q [...] mouth three times a day. 0800, 1200, 1999 - Sennosid (more content not included)... Normal [facility] BRIEF OP NOTon 10-29-2023 BRIEF OP NOT HNO ID: [id number] Author: PA ALICEA MD Service: General Surgery Author Type: Resident Type: Brief Op Note Filed: 10/29/2023 11:47 Note Text: DDSI BRIEF OP NOTE LOG ID: [id number] SURGERY/PROCEDURE DATE: 10/29/2023 INCISION/PROCEDURE START TIME: 10:25 AM INCISION CLOSE/PROCEDURE END TIME: 11:40 AM SURGEON(S)/PROCEDURAL IST(S) AND QUILL WORKER(S): Surgeon(s) and Role: * Samuel Robin MD [...] 29, 2023 TIME: 11:45 AM PAGER/CONTACT #: [facility] BRIEF OP NOT HNO ID: [id number] Author: DANTE CHERRY MD Service: General Surgery Author Type: Resident Type: Brief Op Note Filed: 10/29/2023 11:44 Note Text: BRIEF OPERATIVE / PROCEDURE NOTE LOG ID: [id number] SURGERY/PROCEDURE DATE: 10/29/2023 INCISION/PROCEDURE START TIME: 10:25 AM INCISION CLOSE/PROCEDURE END TIME: 11:40 AM SURGEON(S)/PROCEDURAL IST(S) AND QUILL WORKER(S): Surgeon(s) and Role: * Samuel Robin MD [...] DATE: October 29, 2023 TIME: 11:36 AM [facility] BRIEF OP NOT HNO ID: [id number] Author: PA ALICEA MD Service: General Surgery Author Type: Resident Type: Brief Op Note Filed: 10/29/2023 08:42 Note Text: Created in Error Normal [facility] Basic metabolic 2000 panelon 10-29-2023 Anion gap [Moles/Vol] 11 mmol/L Normal 9-18 [facility] Comment on above: Order Comment: Speci men Type: BLOOD SPECIMEN [facility]ing [facility]: [facility] Address: [address] [place] [address] Performed By: #### 2 777-1, 04538-7, #### [facility] CLIA [id number] [address] [place] [address] [place] Calcium [Mass/Vol] 7.4 mg/dL Low 8.5-10.2 [facility] Comment on above: Order Comment: Speci men Type: BLOOD SPECIMEN Ordering Facility: [facility] Address: [address] [place] [address] Performed By: #### 2 777-1, , #### [facility] CLIA [id number] [address] [place] [address] [place] Chloride [Moles/Vol] 112 mmol/L High 97-105 [facility] Comment on above: Order Comment: Speci men Type: BLOOD SPECIMEN Ordering Facility: [facility] Address: [address] [place] [address] Performed By: #### 2 777-1, , #### [facility] CLIA [id number] [address] [place] [address] [place] CO2 [Moles/Vol] 21 mmol/L Low 22-30 [facility] Comment on above: Order Comment: Speci men Type: BLOOD SPECIMEN Ordering Facility: [facility] Address: [address] [place] [address] Performed By: #### 2 777-1, 24475-9, #### [facility] CLIA [id number] [address] [place], [place] [address] [place] Creatinine [Mass/Vol] 0.69 mg/dL Low 0.73-1.22 [facility] Comment on above: Order Comment: Speci men Type: BLOOD SPECIMEN Ordering Facility: [facility] Address: [address] [place] [address] Performed By: #### 2 777-1, 96250-0, #### [facility] CLIA [id number] [address] [place] [address] [place] Creatinine and Glomerular filtration rate.predicted panel (S/P/Bld) 127 mL/min/1.73m??? Normal >=60 [facility] Comment on above: Order Comment: Sana zuñiga Type: BLOOD SPECIMEN Ordering Facility: [facility] Address: [address] [place] [address] Result Comment: Lor mated Glomerular Filtration Rate [...] actual GFR. Performed By: #### 2 777-1, 42234-5, 48656-8 #### [facility] CLIA [id number] [address] [place] [address] [place] Glucose [Mass/Vol] 115 mg/dL High 74-99 [facility] Comment on above: Order Comment: Sana zuñiga Type: BLOOD SPECIMEN Ordering [facility]: [facility] Address: [address] [place] [address] Result Comment: The [place] Diabetes [employer] (ADA) provides guidance for cutoff [...] Standards of Medical Care in Diabetes 2016, [place] [employer]. Diabetes Care. 2016.39(Suppl 1). Performed By: #### 2 777-1, 88679-0, #### [facility] CLIA [id number] [address] [place] [address] [place] Potassium [Moles/Vol] 3.8 mmol/L Normal 3.7-5.1 [facility] Comment on above: Order Comment: Speci men Type: BLOOD SPECIMEN Ordering Facility: [facility] Address: [address] [place] [address] Performed By: #### 2 777-1, 55575-2, #### [facility] CLIA [id number] [address] [place] [address] [place] Sodium [Moles/Vol] 144 mmol/L Normal 136-144 [facility] Comment on above: Order Comment: Speci men Type: BLOOD SPECIMEN Ordering Facility: [facility] Address: [address] [place] [address] Performed By: #### 2 777-1, 37925-1, #### [facility] CLIA [id number] [address] [place] [address] [place] Urea nitrogen [Mass/Vol] 13 mg/dL Normal 9-24 [facility] Comment on above: Order Comment: Speci men Type: BLOOD SPECIMEN Ordering Facility: [facility] Address: [address] [place] [address] Performed By: #### 2 777-1, 59497-3, #### [facility] CLIA [id number] [address] [place], [place] [id number] [place] CBC W Auto Differential pane l (Bld)on 10-29-2023 Basophils (Bld) [#/Vol] 10*3/uL Normal <0.11 [facility] Comment on above: Order Comment: Speci men Type: BLOOD SPECIMEN Ordering Facility: [facility] Address: [address] [place] [address] Performed By: #### 5 7021-8 #### [facility] CLIA [id number] [address] [place] [address] [place] Basophils/100 WBC (Bld) 0.1 % Normal [facility] Comment on above: Order Comment: Speci men Type: BLOOD SPECIMEN Ordering Facility: [facility] Address: [address] [place] [address] Performed By: #### 5 7021-8 #### [facility] CLIA [id number] [address] [place] [address] [place] Differential cell count method Nom (Bld) Auto Normal [facility] Comment on above: Order Comment: Speci men Type: BLOOD SPECIMEN Ordering Facility: [facility] Address: [address] [place] [address] Performed By: #### 5 7021-8 #### [facility] CLIA [id number] [address] [place] [address] [place] Eosinophils (Bld) [#/Vol] 10*3/uL Normal <0.46 [facility] Comment on above: Order Comment: Speci men Type: BLOOD SPECIMEN Ordering Facility: [facility] Address: [address] [place] [address] Performed By: #### 5 7021-8 #### [facility] CLIA [id number] [address] [place] [address] [place] Eosinophils/100 WBC (Bld) 0.1 % Normal [facility] Comment on above: Order Comment: Speci men Type: BLOOD SPECIMEN Ordering Facility: [facility] Address: [address] [place] [address] Performed By: #### 5 7021-8 #### [facility] CLIA [id number] [address] [place] [address] [place] Erythrocyte distribution width (RBC) [Ratio] 14.6 % Normal 11.5-15.0 [facility] Comment on above: Order Comment: Speci men Type: BLOOD SPECIMEN Ordering Facility: [facility] Address: [address] [place] [address] Performed By: #### 5 7021-8 #### [facility] CLIA [id number] [address] [place] [address] [place] Hematocrit (Bld) [Volume fraction] 33.0 % Low 39.0-51.0 [facility] Comment on above: Order Comment: Speci men Type: BLOOD SPECIMEN Ordering Facility: [facility] Address: [address] [place] [address] Performed By: #### 5 7021-8 #### [facility] CLIA [id number] [address] [place] [address] [place] Hemoglobin (Bld) [Mass/Vol] 10.5 g/dL Low 13.0-17.0 [facility] Comment on above: Order Comment: Speci men Type: BLOOD SPECIMEN Ordering Facility: [facility] Address: [address] [place] [address] Performed By: #### 5 7021-8 #### [facility] CLIA [id number] [address] [place] [address] [place] Immature granulocytes (Bld) [#/Vol] 0.05 10*3/uL Normal <0.10 [facility] Comment on above: Order Comment: Speci men Type: BLOOD SPECIMEN Ordering Facility: [facility] Address: [address] [place] [address] Performed By: #### 5 7021-8 #### [facility] CLIA [id number] [address] [place] [address] [place] Immature granulocytes/100 WBC (Bld) 0.4 % Normal [facility] Comment on above: Order Comment: Speci men Type: BLOOD SPECIMEN Ordering Facility: [facility] Address: [address] [place] [address] Performed By: #### 5 7021-8 #### [facility] CLIA [id number] [address] [place] [address] [place] Lymphocytes (Bld) [#/Vol] 1.25 10*3/uL Normal 1.00-4.00 [facility] Comment on above: Order Comment: Speci men Type: BLOOD SPECIMEN Ordering [facility]: [facility] Address: [address] [place] [address] Performed By: #### 5 7021-8 #### [facility] CLIA [id number] [address] [place] [address] [place] Lymphocytes/100 WBC (Bld) 8.9 % Normal [facility] Comment on above: Order Comment: Speci men Type: BLOOD SPECIMEN Ordering [facility]: [facility] Address: [address] [place] [address] Performed By: #### 5 7021-8 #### [facility] CLIA [id number] [address] [place] [address] [place] MCH (RBC) [Entitic mass] 26.9 pg Normal 26.0-34.0 [facility] Comment on above: Order Comment: Speci men Type: BLOOD SPECIMEN Ordering Facility: [facility] Address: [address] [place] [address] Performed By: #### 5 7021-8 #### [facility] CLIA [id number] [address] [place] [address] [place] MCHC (RBC) [Mass/Vol] 31.8 g/dL Normal 30.5-36.0 [facility] Comment on above: Order Comment: Speci men Type: BLOOD SPECIMEN Ordering [facility]: [facility] Address: [address] [place] [address] Performed By: #### 5 7021-8 #### [facility] CLIA [id number] [address] [place] [address] [place] MCV (RBC) [Entitic vol] 84.6 fL Normal 80.0-100.0 [facility] Comment on above: Order Comment: Speci men Type: BLOOD SPECIMEN Ordering [facility]: [facility] Address: [address] [place] [address] Performed By: #### 5 7021-8 #### [facility] CLIA [id number] [address] [place] [address] [place] Monocytes (Bld) [#/Vol] 1.50 10*3/uL High <0.87 [facility] Comment on above: Order Comment: Speci men Type: BLOOD SPECIMEN Ordering Facility: [facility] Address: [address] [place] [address] Performed By: #### 5 7021-8 #### [facility] CLIA [id number] [address] [place] [address] [place] Monocytes/100 WBC (Bld) 10.6 % Normal [facility] Comment on above: Order Comment: Speci men Type: BLOOD SPECIMEN Ordering [facility]: [facility] Address: [address] [place] [address] Performed By: #### 5 7021-8 #### [facility] CLIA [id number] [address] [place] [address] [place] Neutrophils (Bld) [#/Vol] 11.26 10*3/uL High 1.45-7.50 [facility] Comment on above: Order Comment: Speci men Type: BLOOD SPECIMEN Ordering Facility: [facility] Address: [address] [place] [address] Performed By: #### 5 7021-8 #### [facility] CLIA [id number] [address] [place] [address] [place] Neutrophils/100 WBC (Bld) 79.9 % Normal [facility] Comment on above: Order Comment: Speci men Type: BLOOD SPECIMEN Ordering Facility: [facility] Address: [address] [place] [address] Performed By: #### 5 7021-8 #### [facility] CLIA [id number] [address] [place] [address] [place] Nucleated RBC (Bld) [#/Vol] 10*3/uL Normal <0.01 [facility] Comment on above: Order Comment: Speci men Type: BLOOD SPECIMEN Ordering Facility: [facility] Address: [address] [place] [address] Performed By: #### 5 7021-8 #### [facility] CLIA [id number] [address] [place] [address] [place] Nucleated RBC/100 WBC (Bld) [Ratio] 0.0 /100 WBC Normal [facility] Comment on above: Order Comment: Speci men Type: BLOOD SPECIMEN Ordering [facility]: [facility] Address: [address] [place] [address] Performed By: #### 5 7021-8 #### [facility] CLIA [id number] [address] [place] [address] [place] Platelet mean volume (Bld) [Entitic vol] 9.4 fL Normal 9.0-12.7 [facility] Comment on above: Order Comment: Speci men Type: BLOOD SPECIMEN Ordering [facility]: [facility] Address: [address] [place] [address] Performed By: #### 5 7021-8 #### [facility] CLIA [id number] [address] [place] [address] [place] Platelets (Bld) [#/Vol] 151 10*3/uL Normal 150-400 [facility] Comment on above: Order Comment: Speci men Type: BLOOD SPECIMEN [facility]ing [facility]: [facility] Address: [address] [place] [address] Performed By: #### 5 7021-8 #### [facility] CLIA [id number] [address] [place] [address] [place] RBC (Bld) [#/Vol] 3.90 10*6/uL Low 4.20-6.00 [facility] Comment on above: Order Comment: Speci men Type: BLOOD SPECIMEN [facility]: [facility] Address: [address] [place] [address] Performed By: #### 5 7021-8 #### [facility] CLIA [id number] [address] [place] [address] [place] WBC (Bld) [#/Vol] 14.09 10*3/uL High 3.70-11.00 [facility] Comment on above: Order Comment: Speci men Type: BLOOD SPECIMEN Ordering [facility]: [facility] Address: [address] [place] [address] Performed By: #### 5 7021-8 #### [facility] CLIA [id number] [address] [place] [address] [place] CONFIRM BLOOD TYPEon 024 ABO A Normal [facility] Comment on above: Order Comment: Speci men Type: BLOOD SPECIMENOrdering Facility: [facility] Address: [address] [place] [address] Performed By: #### C ONABO ####[facility] [id number] [place] [address] [place] Rh Nom (Bld) Positive Normal [facility] Comment on above: Order Comment: Speci men Type: BLOOD SPECIMENOrdering Facility: [facility] Address: [address] [place] [address] Performed By: #### C ONABO ####[facility] [id number] [place] [address] [place] Magnesium SerPl-mCncon 10-28 Magnesium [Mass/Vol] 1.8 mg/dL Normal 1.7-2.3 [facility] Comment on above: Order Comment: Speci men Type: BLOOD SPECIMEN Ordering [facility]: [facility] Address: [address] [place] [address] Performed By: #### 2 777-1, 41958-4, 93563-6 #### [facility] CLIA [id number] [address] [place] [address] [place] [address] [place] NURSING PROGon 10-29-2023 NURSING PROG HNO ID: [id number] Author: BAILEY HUTSON RN Service: Nursing Author Type: Registered Nurse Type: Nursing Progress Note Filed: 10/29/2023 18:29 Note Text: 1827 [place] [phone] to notify of patient's current temp of 100.2 F. Will continue to monitor. Normal [facility] NURSING PROG HNO ID: [id number] Author: BAILEY HUTSON RN Service: Nursing Author Type: Registered Nurse Type: Nursing Progress Note Filed: 10/29/2023 17:35 Note Text: Nursing Progress: Topic: RESTRAINT NON-VIOLENT PATIENT NAME: Johnny Devine Patient Location: [place] [address] Room: [place] [address] The patient demonstrates Attempting to Remove Medical [...] patient's safety: Bed in Low/Locked Position, Horticultural Farmer/Sitter, Diversion Activities, IV/Feeding Bag/Pump Out of Vision, [...] 2023 TIME: 5:07 PM Bailey Hutson RN Normal [facility] NURSING PROG HNO ID: [id number] Author: BAILEY HUTSON RN Service: Nursing Author Type: Registered Nurse Type: Nursing Progress Note Filed: 10/29/2023 15:25 Note Text: 1518 [place] [phone] to request indwelling Haskins for incontinence and skin breakdown management. Will continue to monitor. 1523 Patient repeatedly attempt to remove NG tube despite the sitter at the bedside. Primary team notified with request for order for bilateral soft wrist restraint. Will continue to monitor. Normal [facility] NURSING PROG HNO ID: [id number] Author: OLIMPIA MAGALLON RN Service: Nursing Author Type: Registered Nurse Type: Nursing Progress Note Filed: 10/29/2023 13:37 Note Text: Pt resting quietly with patient internet marketing specialist at bedside. Several attempts to reach for NG tube, patient relaxes and moves hand away from from drain if you say hand down Per brother John Paul. This has been effective. Pt resting quietly, no facial grimacing, posturing, or guarding. Vss, resp rate even and non labored. Pt has returned to presurgical baseline and is being transferred back to [facility] in stable condition. Opening eyes when name is called. Brother Delbert (guardian) updated prior to patient transfer. Normal [facility] OPERATIVE NOon 10-29-2023 OPERATIVE NO HNO ID: [id number] Author: SAMUEL ROBIN MD Service: General Surgery Author Type: Physician Type: Operative Report Filed: 10/29/2023 13:52 Note Text: OPERATIVE/PROCEDURE REPORT LOG ID: [id number] SURGERY/PROCEDURE DATE: 10/29/2023 INCISION/PROCEDURE START TIME: 10:25 AM INCISION CLOSE/PROCEDURE END TIME: 11:40 AM SURGEON(S)/PROCEDURAL IST(S) AND QUILL WORKER(S): Surgeon(s) and Role: * aSmuel Robin MD - Primary * Pa Alicea [...] for the entirety of the case. Normal [facility] Phosphate SerPl-mCncon 10-28 Phosphate [Mass/Vol] 2.3 mg/dL Low 2.7-4.8 [facility] Comment on above: Order Comment: Speci men Type: BLOOD SPECIMEN Ordering Facility: [facility] Address: [address] [place] [address] Performed By: #### 2 777-1, 15961-3, #### [facility] CLIA [id number] [address] [place] [address] [place] SEPSIS LACTATEon 10-29-2023 Lactate [Moles/Vol] 1.2 mmol/L Normal <=2.0 [facility] Comment on above: Order Comment: Speci men Type: BLOOD SPECIMENOrdering Facility: [facility] Address: [address] [place] [address] Performed By: #### S LACT ####[facility] [id number] [place] [address] [place] Order Comment: Speci men Type: BLOOD SPECIMEN Ordering Facility: [facility] Address: [address] [place] [address] Performed By: #### 2 777-1, 30332-6, #### [facility] CLIA [id number] [address] [place] [address] [place] Urinalysis complete panel (U )on 10-29-2023 Bacteria LM.HPF (Urine sed) [#/Area] Negative Normal Negative [facility] Comment on above: Order Comment: Speci men Type: BLOOD SPECIMEN [facility]ing [facility]: [facility] Address: [address] [place] [address] Performed By: #### 2 777-1, 51737-0, #### [facility] CLIA [id number] [address] [place] [address] [place] Bilirubin Ql (U) Negative Normal Negative [facility] Comment on above: Order Comment: Speci men Type: BLOOD SPECIMEN Ordering Facility: [facility] Address: [address] [place] [address] Performed By: #### 2 777-1, , #### [facility] [facility] CLIA [id number] [address] [place] [address] [place] Clarity (Unsp spec) Clear Normal Clear [facility] Comment on above: Order Comment: Speci men Type: BLOOD SPECIMEN Ordering Facility: [facility] Address: [address] [place] [address] Performed By: #### 2 777-1, , #### [facility] CLIA [id number] [address] [place] [address] [place] Color (U) Yellow Normal Yellow [facility] Comment on above: Order Comment: Speci men Type: BLOOD SPECIMEN Ordering Facility: [facility] Address: [address] [place] [address] Performed By: #### 2 777-1, 69213-3, #### [facility] CLIA [id number] [address] [place] [address] [place] Epithelial cells LM.HPF (Urine sed) [#/Area] None Seen Normal [facility] Comment on above: Order Comment: Speci men Type: BLOOD SPECIMEN Ordering Facility: [facility] Address: [address] [place] [address] Performed By: #### 2 777-1, 83315-1, #### [facility] CLIA [id number] [address] [place] [address] [place] Glucose Test strip (U) [Mass/Vol] Negative Normal Negative [facility] Comment on above: Order Comment: Speci men Type: BLOOD SPECIMEN Ordering Facility: [facility] Address: [address] [place] [address] Performed By: #### 2 777-1, , #### [facility] CLIA [id number] [address] [place] [address] [place] Hemoglobin Ql (U) 2+ Abnormal Negative [facility] Comment on above: Order Comment: Speci men Type: BLOOD SPECIMEN Ordering Facility: [facility] Address: [address] [place] [address] Performed By: #### 2 777-1, , #### [facility] CLIA [id number] [address] [place] [address] [place] Hyaline casts (Urine sed) [#/Area] 0 /[LPF] Normal 0 /LPF [facility] Comment on above: Order Comment: Speci men Type: BLOOD SPECIMEN Ordering Facility: [facility] Address: [address] [place] [address] Performed By: #### 2 777-1, , #### [facility] CLIA [id number] [address] [place] [address] [place] Ketones Ql (U) Negative Normal Negative [facility] Comment on above: Order Comment: Speci men Type: BLOOD SPECIMEN Ordering Facility: [facility] Address: [address] [place] [address] Performed By: #### 2 777-1, 66232-5, #### [facility] CLIA [id number] [address] [place] [address] [place] Leukocyte esterase Test strip Ql (U) Negative Normal Negative [facility] Comment on above: Order Comment: Speci men Type: BLOOD SPECIMEN Ordering Facility: [facility] Address: [address] [place] [address] Performed By: #### 2 777-1, 21116-1, #### [facility] CLIA [id number] [address] [place] [address] [place] Nitrite Ql (U) Negative Normal Negative [facility] Comment on above: Order Comment: Speci men Type: BLOOD SPECIMEN Ordering Facility: [facility] Address: [address] [place] [address] Performed By: #### 2 777-1, 66656-8, #### [facility] CLIA [id number] [address] [place] [address] [place] pH (U) 6.5 [pH] Normal <8.5 [facility] Comment on above: Order Comment: Speci men Type: BLOOD SPECIMEN Ordering Facility: [facility] Address: [address] [place] [address] Performed By: #### 2 777-1, 50238-5, #### [facility] CLIA [id number] [address] [place] [address] [place] Protein (U) [Mass/Vol] Trace Abnormal Negative [facility] Comment on above: Order Comment: Speci men Type: BLOOD SPECIMEN Ordering Facility: [facility] Address: [address] [place] [address] Performed By: #### 2 777-1, 76777-6, #### [facility] CLIA [id number] [address] [place] [address] [place] RBC LM.HPF (Urine sed) [#/Area] 6-10 /HPF Abnormal 0-2 /HPF [facility] Comment on above: Order Comment: Speci men Type: BLOOD SPECIMEN Ordering Facility: [facility] Address: [address] [place] [address] Performed By: #### 2 777-1, 93516-7, #### [facility] CLIA [id number] [address] [place] [address] [place] Specific gravity (U) [Rel density] 1.021 Normal 1.005-1.030 [facility] Comment on above: Order Comment: Speci men Type: BLOOD SPECIMEN Ordering Facility: [facility] Address: [address] [place] [address] Performed By: #### 2 777-1, 07041-0, #### [facility] CLIA [id number] [address] [place] [address] [place] Urobilinogen Ql (U) 0.2 EU/dL Normal 0.2-1.0 EU/dL [facility] Comment on above: Order Comment: Speci men Type: BLOOD SPECIMEN Ordering Facility: [facility] Address: [address] [place] [address] Performed By: #### 2 777-1, , #### [facility] CLIA [id number] [address] [place] [address] [place] WBC LM.HPF (Urine sed) [#/Area] 0-5 /HPF Normal 0-5 /HPF [facility] Comment on above: Order Comment: Speci men Type: BLOOD SPECIMEN Ordering Facility: [facility] Address: [address] [place] [address] Performed By: #### 2 777-1, 88677-9, #### [facility] CLIA [id number] [address] [place] [address] [place] XR CHEST 1V [...] are unremarkable. Other: . IMPRESSION: See result. Esthetic Dermatologist: SUSI Transcribe Date/Time: Oct 29 2023 12:20A Dictated by : SHEA WORTHY MD This examination was interpreted and the report reviewed and electronically signed by: SHEA WORTHY MD on Oct 29 2023 12:22AM EST [id number] Normal [facility] aPTT PPPon 10-29-2023 aPTT Coag (PPP) [Time] 26.3 s Normal 23.0-32.4 [facility] Comment on above: Order Comment: Speci men Type: BLOOD SPECIMEN Ordering Facility: [facility] Address: [address] [place] [address] Performed By: #### 2 777-1, 64238-7, #### [facility] CLIA [id number] [address] [place] [address] [place] Basic metabolic 2000 panelon 10-28-2023 Anion gap [Moles/Vol] 12 mmol/L Normal 9-18 [facility] Comment on above: Order Comment: Speci men Type: BLOOD SPECIMEN Ordering Facility: [facility] Address: [address] [place] [address] Performed By: #### 2 777-1, 49194-9, #### [facility] CLIA [id number] [address] [place] [address] [place] Calcium [Mass/Vol] 7.8 mg/dL Low 8.5-10.2 [facility] Comment on above: Order Comment: Speci men Type: BLOOD SPECIMEN Ordering Facility: [facility] Address: [address] [place] [address] Performed By: #### 2 777-1, 31436-0, #### [facility] CLIA [id number] [address] [place] [address] [place] Chloride [Moles/Vol] 110 mmol/L High 97-105 [facility] Comment on above: Order Comment: Speci men Type: BLOOD SPECIMEN Ordering Facility: [facility] Address: [address] [place] [address] Performed By: #### 2 777-1, 66613-6, #### [facility] CLIA [id number] [address] [place] [address] [place] CO2 [Moles/Vol] 15 mmol/L Low 22-30 [facility] Comment on above: Order Comment: Speci men Type: BLOOD SPECIMEN Ordering Facility: [facility] Address: [address] [place] [address] Performed By: #### 2 777-1, 79507-5, #### [facility] CLIA [id number] [address] [place] [address] [place] Creatinine [Mass/Vol] 0.72 mg/dL Low 0.73-1.22 [facility] Comment on above: Order Comment: Speci men Type: BLOOD SPECIMEN Ordering Facility: [facility] Address: [address] [place] [address] Performed By: #### 2 777-1, 26941-4, #### [facility] CLIA [id number] [address] [place] [address] [place] [facility] Creatinine and Glomerular filtration rate.predicted panel (S/P/Bld) 125 mL/min/1.73m??? Normal >=60 [facility] Comment on above: Order Comment: Sana zuñiga Type: BLOOD SPECIMEN Ordering Facility: [facility] Address: [address] [place] [address] Result Comment: Lor mated Glomerular Filtration Rate [...] actual GFR. Performed By: #### 2 777-1, 04982-7, #### [facility] CLIA [id number] [address] [place] [address] [place] Glucose [Mass/Vol] 116 mg/dL High 74-99 [facility] Comment on above: Order Comment: Sana zuñiga Type: BLOOD SPECIMEN Ordering Facility: [facility] Address: [address] [place] [address] Result Comment: The [place] [employer] (ADA) provides guidance for cutoff [...] Standards of Medical Care in Diabetes 2016, [place] [employer]. Diabetes Care. 2016.39(Suppl 1). Performed By: #### 2 777-1, 56870-6, #### [facility] CLIA [id number] [address] [place] [address] [place] Potassium [Moles/Vol] 3.9 mmol/L Normal 3.7-5.1 [facility] Comment on above: Order Comment: Speci men Type: BLOOD SPECIMEN Ordering Facility: [facility] Address: [address] [place] [address] Performed By: #### 2 777-1, 31503-8, #### [facility] CLIA [id number] [address] [place] [address] [place] Sodium [Moles/Vol] 137 mmol/L Normal 136-144 [facility] Comment on above: Order Comment: Speci men Type: BLOOD SPECIMEN Ordering Facility: [facility] Address: [address] [place] [address] Performed By: #### 2 777-1, 31814-9, #### [facility] CLIA [id number] [address] [place] [address] [place] Urea nitrogen [Mass/Vol] 17 mg/dL Normal 9-24 [facility] Comment on above: Order Comment: Speci men Type: BLOOD SPECIMEN Ordering Facility: [facility] Address: [address] [place] [address] Performed By: #### 2 777-1, 21301-3, #### [facility] CLIA [id number] [address] [place] [address] [place] CBC W Auto Differential pane l (Bld)on 10-28-2023 Basophils (Bld) [#/Vol] 10*3/uL Normal <0.11 [facility] Comment on above: Order Comment: Speci men Type: BLOOD SPECIMEN Ordering Facility: [facility] Address: [address] [place] [address] Performed By: #### 2 777-1, 04707-8, #### [facility] CLIA [id number] [address] [place] [address] [place] Basophils/100 WBC (Bld) 0.1 % Normal [facility] Comment on above: Order Comment: Speci men Type: BLOOD SPECIMEN Ordering Facility: [facility] Address: [address] [place] [address] Performed By: #### 2 777-1, 62176-9, #### [facility] CLIA [id number] [address] [place] [address] [place] Differential cell count method Nom (Bld) Auto Normal [facility] Comment on above: Order Comment: Speci men Type: BLOOD SPECIMEN Ordering Facility: [facility] Address: [address] [place] [address] Performed By: #### 2 777-1, , #### [facility] CLIA [id number] [address] [place] [address] [place] Eosinophils (Bld) [#/Vol] 10*3/uL Normal <0.46 [facility] Comment on above: Order Comment: Speci men Type: BLOOD SPECIMEN Ordering Facility: [facility] Address: [address] [place] [address] Performed By: #### 2 777-1, , #### [facility] CLIA [id number] [address] [place] [address] [place] Eosinophils/100 WBC (Bld) 0.0 % Normal [facility] Comment on above: Order Comment: Speci men Type: BLOOD SPECIMEN Ordering Facility: [facility] Address: [address] [place] [address] Performed By: #### 2 777-1, , #### [facility] CLIA [id number] [address] [place] [address] [place] Erythrocyte distribution width (RBC) [Ratio] 14.4 % Normal 11.5-15.0 [facility] Comment on above: Order Comment: Speci men Type: BLOOD SPECIMEN Ordering Facility: [facility] Address: [address] [place] [address] Performed By: #### 2 777-1, 11096-9, #### [facility] CLIA [id number] [address] [place], [place] [address] [place] Hematocrit (Bld) [Volume fraction] 38.3 % Low 39.0-51.0 [facility] Comment on above: Order Comment: Speci men Type: BLOOD SPECIMEN Ordering Facility: [facility] Address: [address] [place] [address] Performed By: #### 2 777-1, 47665-9, #### [facility] CLIA [id number] [address] [place] [address] [place] Hemoglobin (Bld) [Mass/Vol] 12.0 g/dL Low 13.0-17.0 [facility] Comment on above: Order Comment: Speci men Type: BLOOD SPECIMEN Ordering Facility: [facility] Address: [address] [place] [address] Performed By: #### 2 777-1, 66833-4, #### [facility] CLIA [id number] [address] [place] [address] [place] Immature granulocytes (Bld) [#/Vol] 0.08 10*3/uL Normal <0.10 [facility] Comment on above: Order Comment: Speci men Type: BLOOD SPECIMEN Ordering Facility: [facility] Address: [address] [place], [place] [address] Performed By: #### 2 777-1, 79333-0, #### [facility] CLIA [id number] [address] [place] [address] [place] Immature granulocytes/100 WBC (Bld) 0.6 % Normal [facility] Comment on above: Order Comment: Speci men Type: BLOOD SPECIMEN Ordering Facility: [facility] Address: [address] [place] [address] Performed By: #### 2 777-1, 91290-0, #### [facility] CLIA [id number] [address] [place] [address] [place] Lymphocytes (Bld) [#/Vol] 1.19 10*3/uL Normal 1.00-4.00 [facility] Comment on above: Order Comment: Speci men Type: BLOOD SPECIMEN Ordering Facility: [facility] Address: [address] [place] [address] Performed By: #### 2 777-1, 26468-5, #### [facility] CLIA [id number] [address] [place] [address] [place] Lymphocytes/100 WBC (Bld) 8.2 % Normal [facility] Comment on above: Order Comment: Speci men Type: BLOOD SPECIMEN Ordering Facility: [facility] Address: [address] [place] [address] Performed By: #### 2 777-1, 80624-0, #### [facility] CLIA [id number] [address] [place] [address] [place] MCH (RBC) [Entitic mass] 26.5 pg Normal 26.0-34.0 [facility] Comment on above: Order Comment: Speci men Type: BLOOD SPECIMEN Ordering Facility: [facility] Address: [address] [place] [address] Performed By: #### 2 777-1, 80741-6, #### [facility] CLIA [id number] [address] [place] [address] [place] MCHC (RBC) [Mass/Vol] 31.3 g/dL Normal 30.5-36.0 [facility] Comment on above: Order Comment: Speci men Type: BLOOD SPECIMEN Ordering Facility: [facility] Address: [address] [place] [address] Performed By: #### 2 777-1, 13642-1, #### [facility] CLIA [id number] [address] [place] [address] [place] MCV (RBC) [Entitic vol] 84.5 fL Normal 80.0-100.0 [facility] Comment on above: Order Comment: Speci men Type: BLOOD SPECIMEN Ordering Facility: [facility] Address: [address] [place] [address] Performed By: #### 2 777-1, 04880-5, #### [facility] CLIA [id number] [address] [place] [address] [place] Monocytes (Bld) [#/Vol] 1.48 10*3/uL High <0.87 [facility] Comment on above: Order Comment: Speci men Type: BLOOD SPECIMEN Ordering Facility: [facility] Address: [address] [place] [address] Performed By: #### 2 777-1, 15865-2, #### [facility] CLIA [id number] [address] [place] [address] [place] Monocytes/100 WBC (Bld) 10.2 % Normal [facility] Comment on above: Order Comment: Speci men Type: BLOOD SPECIMEN Ordering Facility: [facility] Address: [address] [place] [address] Performed By: #### 2 777-1, 30852-6, #### [facility] CLIA [id number] [address] [place] [address] [place] Neutrophils (Bld) [#/Vol] 11.69 10*3/uL High 1.45-7.50 [facility] Comment on above: Order Comment: Speci men Type: BLOOD SPECIMEN Ordering Facility: [facility] Address: [address] [place], [place] [address] Performed By: #### 2 777-1, 36685-3, #### [facility] CLIA [id number] [address] [place] [address] [place] Neutrophils/100 WBC (Bld) 80.9 % Normal [facility] Comment on above: Order Comment: Speci men Type: BLOOD SPECIMEN Ordering Facility: [facility] Address: [address] [place] [address] Performed By: #### 2 777-1, 23446-3, #### [facility] CLIA [id number] [address] [place] [address] [place] Nucleated RBC (Bld) [#/Vol] 10*3/uL Normal <0.01 [facility] Comment on above: Order Comment: Speci men Type: BLOOD SPECIMEN Ordering Facility: [facility] Address: [address] [place] [address] Performed By: #### 2 777-1, 55172-1, #### [facility] CLIA [id number] [address] [place] [address] [place] Nucleated RBC/100 WBC (Bld) [Ratio] 0.0 /100 WBC Normal [facility] Comment on above: Order Comment: Speci men Type: BLOOD SPECIMEN Ordering Facility: [facility] Address: [address] [place] [address] Performed By: #### 2 777-1, 27362-8, #### [facility] CLIA [id number] [address] [place] [address] [place] Platelet mean volume (Bld) [Entitic vol] 9.3 fL Normal 9.0-12.7 [facility] Comment on above: Order Comment: Speci men Type: BLOOD SPECIMEN Ordering Facility: [facility] Address: [address] [place] [address] Performed By: #### 2 777-1, 45078-8, #### [facility] CLIA [id number] [address] [place] [address] [place] Platelets (Bld) [#/Vol] 180 10*3/uL Normal 150-400 [facility] Comment on above: Order Comment: Speci men Type: BLOOD SPECIMEN Ordering Facility: [facility] Address: [address] [place] [address] Performed By: #### 2 777-1, 95359-9, #### [facility] CLIA [id number] [address] [place] [address] [place] RBC (Bld) [#/Vol] 4.53 10*6/uL Normal 4.20-6.00 [facility] Comment on above: Order Comment: Speci men Type: BLOOD SPECIMEN Ordering Facility: [facility] Address: [address] [place] [address] Performed By: #### 2 777-1, 34772-0, #### [facility] CLIA [id number] [address] [place] [address] [place] WBC (Bld) [#/Vol] 14.46 10*3/uL High 3.70-11.00 [facility] Comment on above: Order Comment: Speci men Type: BLOOD SPECIMEN Ordering Facility: [facility] Address: [address] [place] [address] Performed By: #### 2 777-1, 06621-2, #### [facility] CLIA [id number] [address] [place] [address] [place] HISTORY PHYSICALon HISTORY PHYSICAL HNO ID: [id number] Author: SAMUEL ROBIN MD Service: General Surgery [...] No a (more content not included)... Normal [facility] Magnesium SerPl-mCncon 10-27 Magnesium [Mass/Vol] 1.8 mg/dL Normal 1.7-2.3 [facility] Comment on above: Order Comment: Sana zuñiga Type: BLOOD SPECIMEN Ordering Facility: [facility] Address: [address] [place] [address] Performed By: #### 2 777-1, 55658-3, 35200-3 #### [facility] CLIA [id number] [address] [place] [address] [place] PT panel Coag (PPP)on 2023 INR Coag (PPP) [Relative time] 1.2 {INR} Normal 0.9-1.3 [facility] Comment on above: Order Comment: Sana zuñiga Type: BLOOD SPECIMEN Ordering Facility: [facility] Address: [address] [place] [address] Result Comment: Winnie min K Antagonist (VKA) Therapeutic Range: INR 2 to 3 (Target INR of 2.5) Note: For patients treated with VKA drugs, such as warfarin, the [place] [employer] 2012 Guideline recommends [...] to 3.5 (target INR of 3). Guerline ROBERTO, et al. Chest 2012, 141:7S-47S Jonny RA, et al. [facility] 2017, 70: 252-289 Performed By: #### 2 777-1, 04214-8, #### [facility] CLIA [id number] [address] [place] [address] [place] PT Coag (PPP) [Time] 12.3 s Normal 9.7-13.0 [facility] Comment on above: Order Comment: Speci men Type: BLOOD SPECIMEN Ordering Facility: [facility] Address: [address] [place] [address] Performed By: #### 2 777-1, 69929-6, #### [facility] CLIA [id number] [address] [place] [address] [place] Phosphate SerPl-mCncon 10-27 Phosphate [Mass/Vol] 3.2 mg/dL Normal 2.7-4.8 [facility] Comment on above: Order Comment: Akbari men Type: BLOOD SPECIMEN Ordering Facility: [facility] Address: [address] [place] [address] Performed By: #### 2 777-1, 70593-2, #### [facility] CLIA [id number] [address] [place] [address] [place] SEPSIS LACTATEon 10-28-2023 Lactate [Moles/Vol] 2.0 mmol/L Normal <=2.0 [facility] Comment on above: Order Comment: Speci men Type: BLOOD SPECIMENOrdering Facility: [facility] Address: [address] [place] [address] Performed By: #### S LACT ####[facility] [id number] [place] [address] [place] TYPE + SCREENon 10-28-2023 ABO A Normal [facility] Comment on above: Order Comment: Speci men Type: BLOOD SPECIMEN Ordering Facility: [facility] Address: [address] [place] [address] Performed By: #### 2 4321-2, , 2776-08 #### [facility] CLIA [id number] [address] [place] [address] [place] HISTORICAL AB SCR STATUS Negative Normal [facility] Comment on above: Order Comment: Speci men Type: BLOOD SPECIMEN Ordering Facility: [facility] Address: [address] [place] [address] Performed By: #### 2 4321-2, , 2776-08 #### [facility] CLIA [id number] [address] [place] [address] [place] Rh Nom (Bld) Positive Normal [facility] Comment on above: Order Comment: Speci men Type: BLOOD SPECIMEN Ordering Facility: [facility] Address: [address] [place] [address] Performed By: #### 2 4321-2, , 2776-08 #### [facility] CLIA [id number] [address] [place] [address] [place] TYPE AND SCREEN EXPIRATION 10/31/2023 23:59 Normal [facility] Comment on above: Order Comment: Speci men Type: BLOOD SPECIMEN Ordering Facility: [facility] Address: [address] [place] [address] Performed By: #### 2 4321-2, , 1 #### [facility] CLIA [id number] [address] [place], [place] [id number] [address] [place] XR ABDOMEN 1V [...] right lower quadrant on the outside CT). Esthetic Dermatologist: PSCB Transcribe Date/Time: Oct 28 2023 5:30P Dictated by : WALTER BURGER MD This examination was interpreted and the report reviewed and electronically signed by: WALTER BURGER MD on Oct 28 2023 5:47PM EST [id number] Normal [facility] Basic metabolic 2000 panelOr dered By: Vandana [...] Inclusion of Race in Diagnosing Kidney Disease. [place] Journal of Kidney Diseases 2021;79(2):268-88.e1. 2. N Engl J Med 2020 Vol. 385 Issue 19 Pages 2806-9045 Glucose [Mass/Vol] 84 mg/dL 74 - 109 [...] above: Note updated referen ce ranges. [facility] CBC WITH DIFFERENTIALon 06-21 Basophils (Bld) [#/Vol] 0.10 10*3/uL 0.00 - [...] (Bld) 36.8 % 24.0 - 44.0 % [facility] MCH (RBC) [Entitic mass] 27.4 pg 26.0 - 34.0 pg [facility] MCHC (RBC) [Mass/Vol] 32.8 g/dL 32.0 - 35.9 g/dL [facility] MCV (RBC) [Entitic vol] 84 fL 80 - 100 fL [facility] Monocytes (Bld) [#/Vol] 0.80 10*3/uL 0.20 - 1.00 K/uL [facility] Monocytes/100 WBC (Bld) 8.9 % 2.0 - 11.0 % [facility] Neutrophils (Bld) [#/Vol] 4.40 10*3/uL 1.50 - 8.00 K/uL [facility] Neutrophils/100 WBC (Bld) 50.6 % 31.0 - 76.0 % [facility] Nucleated RBC (Bld) [#/Vol] 0.01 10*3/uL [facility] Nucleated RBC/100 WBC (Bld) [Ratio] 0.1 % [facility] Platelet mean volume (Bld) [Entitic vol] 9.1 fL 7.5 - 11.2 fL [facility] Platelets (Bld) [#/Vol] [facility] Comment on above: Platelet cannot be q uantified due to the presence of platelet clumps. Platelet estimate appears normal. RBC (Bld) [#/Vol] 4.59 10*6/uL [facility] WBC (Bld) [#/Vol] 8.6 10*3/uL 4.5 - 11.5 K/uL [facility] CT Head WO contrastOrdered B y: David Kay on 07-16-2023 CT DLP 1126.71 (mGy.cm) [facility] Work Phone: CT Series HEAD W/O,HEAD W/O [facility] Work Phone: CTDI VOL 0.34 (mGy),47.31 (mGy) [facility] Work Phone: PHANTOM TYPE IEC Head Dosimetry Phantom,IEC Head Dosimetry Phantom [facility] Work Phone: [facility] Work Phone: CT Head WO contraston [...] in the left caudate nucleus. MACRO: None [facility] Radiology Study observation (narrative) [facility] MAGNESIUMon 07-16-2023 Interpretation and review of laboratory results Normal [facility] Magnesium [Mass/Vol] 2.1 mg/dL 1.6 - 2 .8 mg/dL [facility] Lithiumon 07-06-2023 [place] [Moles/Vol] 0.9 mmol/L Invalid Interpretation Code 0.5-1.2 [facility] Comment on above: Result Comment: A co ncentration of 0.5-0.8 mmol/L is advised for long-term use; concentrations of up to 1.2 mmol/L may be necessary during acute treatment. Detection Limit = 0.1 <0.1 indicates None Detected Performed at: [address] [id number] PhD Agata Narayan Performed By: #### 2 350273, 4194369, 1256610, 1800554, 102256648, 8003736, 2176184, 43495172, 7748005 ####[facility] [address] [place] [address] CBC w/Indiceson 07-04-2023 Erythrocyte distribution width (RBC) [Ratio] 13.8 % Normal 10.9-14.2 [facility] Comment on above: Performed By: #### 2 577142, 2937522, 3967514, 3661196, 526786414, 5311471, 7296081, 57602175, 1264579 #### [facility] [address] [place] [address] Hematocrit (Bld) [Volume fraction] 38.1 % Normal 37.7-49.0 [facility] Comment on above: Performed By: #### 2 908104, 2116441, 7410361, 9031181, 600968060, 0659831, 1744906, 21342665, 8046959 #### [facility] [address] [place] [address] Hemoglobin (Bld) [Mass/Vol] 12.7 g/dL Low 13.5-17.5 [facility] Comment on above: Performed By: #### 2 517419, 5422533, 6607245, 2179275, 629639968, 2978298, 6989371, 76466587, 5214001 #### [facility] [address] [place] [address] MCH (RBC) [Entitic mass] 27.6 pg Normal 27.0-34.0 [facility] Comment on above: Performed By: #### 2 179177, 3883065, 3018923, 6745906, 775824678, 0196206, 6825504, 54614029, 7645328 #### [facility] [address] [place] [address] MCHC (RBC) [Mass/Vol] 33.3 g/dL Normal 31.4-36.0 [facility] Comment on above: Performed By: #### 2 534650, 7627586, 5655398, 5296475, 616078525, 4703039, 4614840, 38360783, 8860171 #### [facility] [address] [place] [address] MCV (RBC) [Entitic vol] 83.0 fL Normal 80.0-100.0 [facility] Comment on above: Performed By: #### 2 402882, 7566931, 3160431, 1992717, 791364056, 3414553, 0860017, 66171307, 7385278 #### [facility] [address] [place] [address] Platelet mean volume (Bld) [Entitic vol] 8.5 fL Normal 6.4-10.8 [facility] Comment on above: Performed By: #### 2 557239, 6355003, 2873454, 0632101, 551572275, 2717161, 0758159, 10037919, 1282633 #### [facility] [address] [place] [address] Platelets (Bld) [#/Vol] 175.0 E9/L Normal 150.0-500.0 [facility] Comment on above: Performed By: #### 2 430417, 4316045, 1575978, 4473381, 112889171, 8509358, 8233206, 43209321, 9750002 #### [facility] [address] [place] [address] RBC (Bld) [#/Vol] 4.6 E12/L Normal 4.3-5.9 [facility] Comment on above: Performed By: #### 2 815927, 7055387, 6698908, 3390321, 354027635, 0132928, 5707048, 42428425, 9862843 #### [facility] [address] [place] [address] WBC corrected for nucl RBC Auto (Bld) [#/Vol] 5.9 E9/L Normal 4.0-11.0 [facility] Comment on above: Performed By: #### 2 476321, 2246985, 7117205, 9352672, 194736819, 2184175, 0104591, 93254118, 9502869 #### [facility] [address] [place] [address] CHEMISTRYOrdered By: SYSTEM SYSTEM on 07-04-2023 25-hydroxyvitamin D3 [Mass/Vol] 33.7 ng/mL Normal 30.0 - 100.0 ng/mL [facility] Remisol Comment on above: Interpretive Data: Vitamin D deficiency has been defined as a level of serum 25-OH vitamin D less than 20 ng/mL (1,2) by the [place] of Medicine and an Endocrine Society practice guideline. The Endocrine Society further defined vitamin D insufficiency as a level between 21 and 29 ng/mL (2). 1. IOM ([place] of Medicine). 2010. Dietary reference intakes for [...] 118 mL/min/1.73 m2 Normal >=59mL/min/1 .73 m2 [facility] Chem S Comment on above: [...] 07-04-2023 Albumin [Mass/Vol] 3.7 g/dL Normal 3.3-5.0 [facility] Comment on above: Performed By: #### 2 768653, 1873021, 0546412, 1214536, 232230514, 7020774, 5276658, 49791954, 3905516 #### [facility] [address] [place] [address] Albumin/Globulin (S) [Mass conc ratio] 1.0 Low 1.1-2.2 [facility] Comment on above: Performed By: #### 2 768538, 3948821, 3639860, 3217896, 073183942, 9431331, 9354492, 89783140, 4296249 #### [facility] [address] [place] [address] ALP [Catalytic activity/Vol] 37 Int._Unit/L Normal 21-98 [facility] Comment on above: Performed By: #### 2 579747, 5688645, 7077550, 9259295, 952858453, 9870837, 4037432, 47972803, 8827045 #### [facility] [address] [place] [address] ALT No additional P-5'-P [Catalytic activity/Vol] 15 Int._Unit/L Normal 6-46 [facility] Comment on above: Performed By: #### 2 624304, 2591472, 7529192, 9406537, 559770235, 7287162, 7577615, 62013994, 8743275 #### [facility] [address] [place] [address] Anion gap [Moles/Vol] 12 mmol/L Normal 6-16 [facility] Comment on above: Performed By: #### 2 130177, 1109776, 7534607, 5277869, 552961516, 4784545, 2736042, 15397949, 1299790 #### [facility] [address] [place] [address] AST [Catalytic activity/Vol] 22 Int._Unit/L Normal 5-43 [facility] Comment on above: Performed By: #### 2 141238, 3670805, 1565647, 8998385, 759926579, 9054983, 6048130, 95824546, 8346205 #### [facility] [address] [place] [address] Bilirubin [Mass/Vol] 0.1 mg/dL Normal 0.0-1.1 [facility] Comment on above: Performed By: #### 2 469570, 3931564, 4144728, 3160621, 332556883, 8302904, 5175217, 96419842, 9130475 #### [facility] [address] [place] [address] Calcium [Mass/Vol] 9.7 mg/dL Normal 8.9-11.1 [facility] Comment on above: Performed By: #### 2 685969, 2957967, 5992514, 2933467, 213310752, 2625252, 2707997, 64723659, 2731530 #### [facility] [address] [place] [address] Chloride [Moles/Vol] 108 mmol/L Normal 101-111 [facility] Comment on above: Performed By: #### 2 348265, 1759925, 4965522, 9895784, 257818072, 5853595, 4627159, 40437822, 4789250 #### [facility] [address] [place] [address] CO2 [Moles/Vol] 23 mmol/L Normal 21-31 [facility] Comment on above: Performed By: #### 2 291636, 7070137, 6201571, 5578088, 734297404, 4153969, 1306023, 02912624, 6926466 #### [facility] [address] [place] [address] Creatinine [Mass/Vol] 0.9 mg/dL Normal 0.5-1.3 [facility] Comment on above: Performed By: #### 2 868210, 8653903, 8383130, 2984777, 410365899, 8829367, 0217108, 95360922, 5817875 #### [facility] [address] [place] [address] Globulin (S) [Mass/Vol] 3.8 g/dL Normal 1.4-4.0 [facility] Comment on above: Performed By: #### 2 824766, 3899976, 1852825, 9905990, 843537592, 2921920, 2296923, 54159151, 8968492 #### [facility] [address] [place] [address] Glucose [Mass/Vol] 86 mg/dL Normal 55-199 [facility] Comment on above: Result Comment: If t his glucose result represents a fasting glucose, interpretation should refer to the following reference range: 55-99 mg/dL Performed By: #### 2 222774, 6499996, 7857079, 9628147, 547517321, 4129645, 9876016, 99437720, 9441609 #### [facility] [address] [place] [address] Potassium [Moles/Vol] 4.3 mmol/L Normal 3.5-5.3 [facility] Comment on above: Performed By: #### 2 201911, 1508449, 0026625, 9325965, 913425880, 6485503, 2440259, 52872852, 1866743 #### [facility] [address] [place] [address] Protein [Mass/Vol] 7.5 g/dL Normal 6.0-7.8 [facility] Comment on above: Performed By: #### 2 109106, 1412163, 2570938, 2836053, 521099888, 7958339, 7556069, 71218428, 4729919 #### [facility] [address] [place] [address] Sodium [Moles/Vol] 139 mmol/L Normal 135-145 [facility] Comment on above: Performed By: #### 2 478776, 5229029, 4009190, 2041616, 328531042, 8856859, 5547681, 46444569, 0052910 #### [facility] [address] [place] [address] Urea nitrogen [Mass/Vol] 20 mg/dL Normal 5-21 [facility] Comment on above: Performed By: #### 2 945735, 4742747, 5950579, 4864302, 640785869, 8580606, 6920691, 93896371, 3816483 #### [facility] [address] [place] [address] Urea nitrogen/Creatinine [Mass ratio] 22 No Units High 10-20 [facility] Comment on above: Performed By: #### 2 899430, 7955956, 8586583, 1695460, 202889856, 4616979, 3462236, 73578939, 1174481 #### [facility] [address] [place] [address] Free T4on 07-04-2023 Free T4 [Mass/Vol] 0.70 ng/dL Normal 0.58-1.64 [facility] Comment on above: Performed By: #### 2 081880, 9295871, 6218177, 4365014, 768445890, 0226423, 5188197, 96952686, 8740457 #### [facility] [address] [place] [address] HEMATOLOGYOrdered By: Jersey Arnett on 07-04-2023 Erythrocyte distribution width (RBC) [Ratio] 13.8 % Normal 10.9 - 14.2 % [facility] Hematocrit (Bld) [Volume fraction] 38.1 % Normal 37.7 - 49.0 % [facility] Hemoglobin (Bld) [Mass/Vol] 12.7 g/dL Low 13.5 - 17.5 gm/dL [facility] MCH (RBC) [Entitic mass] 27.6 pg Normal 27.0 - 34.0 pg [facility] MCHC (RBC) [Mass/Vol] 33.3 g/dL Normal 31.4 - 36.0 gm/dL [facility] MCV (RBC) [Entitic vol] 83.0 fL Normal 80.0 - 100.0 fL [facility] Platelet mean volume (Bld) [Entitic vol] 8.5 fL Normal 6.4 - 10.8 fL [facility] Platelets (Bld) [#/Vol] 175.0 E9/L Normal 150.0 - 500.0 E9/L [facility] RBC (Bld) [#/Vol] 4.6 E12/L Normal 4.3 - 5.9 E12/L [facility] WBC corrected for nucl RBC Auto (Bld) [#/Vol] 5.9 E9/L Normal 4.0 - 11.0 E9/L [facility] HemeAutoSS Lipid Panelon 07-04-2023 Cholesterol [Mass/Vol] 145 mg/dL Normal 120-200 [facility] Comment on above: Performed By: #### 2 271700, 4556041, 2854312, 1409241, 452352396, 8999222, 0801101, 89927951, 3086141 #### [facility] [address] [place] [address] Cholesterol in HDL [Mass/Vol] 40 mg/dL Invalid Interpretation Code [facility] Comment on above: Result Comment: HDL > or equal to 60 mg/dL: Low cardiovascular risk HDL < 40 mg/dL : High cardiovascular risk Performed By: #### 2 009497, 0413515, 7226549, 1260688, 875036212, 3814658, 6352065, 60463151, 3892128 #### [facility] [address] [place] [address] Cholesterol in LDL [Mass/Vol] 86 mg/dL Normal <=129 [facility] Comment on above: Performed By: #### 2 526707, 2080422, 4435558, 9678720, 245958420, 3341142, 5140370, 03986721, 4741495 #### [facility] [address] [place] [address] Cholesterol in VLDL [Mass/Vol] 27 mg/dL Normal 7-40 [facility] Comment on above: Performed By: #### 2 516087, 4393653, 4120501, 9521270, 384714554, 8447878, 0518238, 26582144, 9362857 #### [facility] [address] [place] [address] Triglyceride [Mass/Vol] 133 mg/dL Normal <=149 [facility] Comment on above: Performed By: #### 2 539968, 5387542, 5041199, 9382076, 793467188, 0735632, 8609177, 28655194, 4059437 #### [facility] [address] [place] [address] Physician Orderon 07-04-2023 Physician Order [id number]# 1.00TIFF Normal [facility] TSHon 07-04-2023 TSH Qn 2.75 m[IU]/L Normal 0.34-5.60 [facility] Comment on above: Performed By: #### 2 938295, 1690639, 6484481, 1213911, 708308620, 4768338, 0005387, 70778738, 8394214 #### [facility] [address] [place] [address] Valproic Acidon 07-04-2023 Valproate [Moles/Vol] 79 microgram/mL Normal 50-99 [facility] Comment on above: Performed By: #### 2 568935, 0416925, 0283464, 9107630, 052911719, 3062633, 8798146, 77344879, 6131185 #### [facility] [address] [place] [address] Vitamin D 25 Hydroxyon 07-04 25-hydroxyvitamin D3 [Mass/Vol] 33.7 ng/mL Normal 30.0-100.0 [facility] Comment on above: Result Comment: Vit alfredo D deficiency has been defined as a level of serum 25-OH vitamin D less than 20 ng/mL (1,2) by the [place] of Medicine and an Endocrine Society practice guideline. The Endocrine Society further defined vitamin D insufficiency as a level between 21 and 29 ng/mL (2). 1. IOM ([place] of Medicine). 2010. Dietary reference intakes for calcium and D. [place]: The National Academies Press. 2. Denia JACINTO, Marcelino CHAIDEZ, Ann GARVEY, et al. Evaluation, treatment, and prevention of vitamin D deficiency: an Endocrine Society clinical practice guideline. JCEM. 2010; 96 (7):1911-30. Performed By: #### 2 932078, 1211873, 4262578, 2665533, 358961188, 5372934, 5225556, 57307996, 5008864 #### [facility] [address] [place] [address] eGFRon 07-04-2023 GFR/1.73 sq M.predicted among non-blacks MDRD (S/P/Bld) [Vol rate/Area] 118 mL/min/1.73 m2 Normal >=59 [facility] Comment on above: Order Comment: Order added by Discern Expert. Result Comment: Flat Surfacer jenni kidney disease could be indicated at eGFR's of less than 60 mL/min/1.73m2. Kidney failure is indicated at less than 15 mL/min/1.73m2. Performed By: #### 2 916576, 2879364, 6207543, 1276636, 412869501, 7728782, 0988354, 19714175, 8839276 #### [facility] [address] [place] [address] XR Chest PA and Lateralon EXAMINATION: XR [...] indicated with dedicated abdominal radiograph/CT. MACRO: None [facility] Radiology Study observation (narrative) [facility] XR Chest PA and LateralOrder ed By: Krystal Epstein on 06-22-2023 [facility] Work Phone: DEPAKENE/ VALPROIC ACIDon DEPAKENE 59.3 ug/ml Normal 50.0-100.0 [facility] Comment on above: Performed By: #### V ALP #### [facility] [address] [address] [address] Nikky King DEPAKENE/ VALPROIC ACIDon DEPAKENE 43.6 ug/ml Critically low 50.0-100.0 [facility] Comment on above: Performed By: #### V ALP #### [facility] [address] [address] [address] Nikky King LITHIUMon 12-06-2022 [place] (Eskalith(R)), Serum 0.8 mmol/L Normal 0.5-1.2 [facility] Comment on above: Result Comment: A co ncentration of 0.5-0.8 mmol/L is advised for long-term use; concentrations of up to 1.2 mmol/L may be necessary during acute treatment. Detection Limit = 0.1 <0.1 indicates None Detected Performed By: #### L ITHIUM #### [facility] [address] [place] [address] Dr. Nikky King DEPAKENE/ VALPROIC ACIDon DEPAKENE 61.7 ug/ml Normal 50.0-100.0 [facility] Comment on above: Performed By: #### V ALP #### [facility] [address] [place] [address] Dr. Nikky King LITHIUMon 11-23-2022 [place] (Eskalith(R)), Serum 0.9 mmol/L Normal 0.5-1.2 [facility] Comment on above: Result Comment: A co ncentration of 0.5-0.8 mmol/L is advised for long-term use; concentrations of up to 1.2 mmol/L may be necessary during acute treatment. Detection Limit = 0.1 <0.1 indicates None Detected Performed By: #### L ITHIUM #### [facility] [address] [place] [address] Dr. Nikky King CALCIUMon 08-22-2022 Calcium [Mass/Vol] 9.6 mg/dL Normal 8.5-10.1 [facility] Comment on above: Performed By: #### C A, CREA #### [facility] [address] [place] [address] Dr. Nikky King CREATININEon 08-22-2022 Creatinine [Mass/Vol] 0.84 mg/dL Normal 0.70-1.30 [facility] Comment on above: Performed By: #### C A, CREA #### [facility] [address] [place] [address] Dr. Nikky King EGFR-AF ANGOLAN >60 Normal >=60 [facility] Comment on above: Performed By: #### C A, CREA #### [facility] [address] [place] [address] Dr. Nikky King EGFR-NON AF ANGOLAN >60 Normal >=60 [facility] Comment on above: Performed By: #### C A, CREA #### [facility] [address] [place] [address] Dr. Nikky King LITHIUMon 07-05-2022 [place] (Eskalith(R)), Serum 0.9 mmol/L Normal 0.5-1.2 [facility] Comment on above: Result Comment: A co ncentration of 0.5-0.8 mmol/L is advised for long-term use; concentrations of up to 1.2 mmol/L may be necessary during acute treatment. Detection Limit = 0.1 <0.1 indicates None Detected Performed By: #### L ITHIUM #### [facility] [address] [place] [address] Dr. Nikky Kign Vital Signs Date Time Vital Sign Value Performing Clinician Severinoi lity 12-02-2024 12:32-0400 Body height 167.6 cm Cris Lowe PA Work Phone: [facility] 12-02-2024 12:32-0400 Body mass index (BMI) [Ratio] 31.96 kg/m2 Cris Lowe PA Work Phone: [facility] 12-02-2024 12:32-0400 Body weight 89.81 kg Cris Lowe PA Work Phone: [facility] 12-02-2024 12:32-0400 Diastolic blood pressure 82 mm[Hg] Cris Lowe PA Work Phone: [facility] 12-02-2024 12:32-0400 Systolic blood pressure 128 mm[Hg] Cris Lowe PA Work Phone: [facility] 05-21-2024 09:29-0400 Body height 167.6 cm Cris Lowe PA Work Phone: [facility] 05-21-2024 09:29-0400 Body mass index (BMI) [Ratio] 31.96 kg/m2 Cris Lowe PA Work Phone: [facility] 05-21-2024 09:29-0400 Body weight 89.81 kg Cris Lowe PA Work Phone: [facility] 05-21-2024 09:29-0400 Diastolic blood pressure 90 mm[Hg] Cris Lowe PA Work Phone: [facility] 05-21-2024 09:29-0400 Systolic blood pressure 136 mm[Hg] Cris BANG Work Phone: [facility] 12-28-2023 14:30-0400 Diastolic blood pressure 89 mm[Hg] Mari Traore DMD Work Phone: [facility] 12-28-2023 14:30-0400 Heart rate 69 /min Mari Traore DMD Work Phone: [facility] 12-28-2023 14:30-0400 Respiratory rate 10 /min Mari Traore DMD Work Phone: [facility] 12-28-2023 14:30-0400 SaO2% (BldA) [Mass fraction] 100 % Mari Traore DMD Work Phone: [facility] 12-28-2023 14:30-0400 Systolic blood pressure 135 mm[Hg] Mari Traore DMD Work Phone: [facility] 12-28-2023 13:52-0400 Body temperature 97.3 [degF] Mari Traore DMD Work Phone: [facility] 12-28-2023 09:15-0400 Body height 167.6 cm Mari Traore DMD Work Phone: [facility] 12-28-2023 09:15-0400 Body mass index (BMI) [Ratio] 31.8 kg/m2 Mari Traore DMD Work Phone: [facility] 12-28-2023 09:15-0400 Body weight 89.36 kg Mari Traore DMD Work Phone: [facility] 12-19-2023 11:23-0400 Diastolic blood pressure 90 mm[Hg] Ling Markiv [employer] Work Phone: [facility] 12-19-2023 11:23-0400 Systolic blood pressure 132 mm[Hg] Ling Markiv [employer] Work Phone: [facility] 12-19-2023 11:03-0400 Body height 167.6 cm Ling Markiv [employer] Work Phone: [facility] 12-19-2023 11:03-0400 Body mass index (BMI) [Ratio] 31.8 kg/m2 Ling Coffman [employer] Work Phone: [facility] 12-19-2023 11:03-0400 Body temperature 97.81 [degF] Ling Coffman [employer] Work Phone: [facility] 12-19-2023 11:03-0400 Body weight 89.36 kg Ling Coffman [employer] Work Phone: [facility] 12-19-2023 11:03-0400 Heart rate 59 /min Ling Coffman [employer] Work Phone: [facility] 12-19-2023 11:03-0400 Respiratory rate 18 /min Ling Coffman [employer] [facility] Phone[facility] 12-19-2023 11:03-0400 SaO2% (BldA) [Mass fraction] 97 % Ling Coffman [employer] Work Phone: [facility] 12-03-2023 13:07-0400 Body height 167.6 cm Oscar Ruiz MD Work Phone: [facility] 12-03-2023 13:07-0400 Body weight 92.53 kg Oscar Ruiz MD Work Phone: [facility] 12-03-2023 13:07-0400 Diastolic blood pressure 76 mm[Hg] Oscar Ruiz MD Work Phone: [facility] 12-03-2023 13:07-0400 Heart rate 71 /min Oscar Ruiz MD Work Phone: [facility] 12-03-2023 13:07-0400 Systolic blood pressure 111 mm[Hg] Oscar Ruiz MD Work Phone: [facility] 11-28-2023 09:48-0400 Body height 167.6 cm Victoria Daniel BLOCK PILER.BUILDING RIGGER Work Phone: [facility] 11-28-2023 09:48-0400 Body temperature 97.5 [degF] Victoria Daniel BLOCK PILER.BUILDING RIGGER Work Phone: [facility] 11-28-2023 09:48-0400 Body weight 87.54 kg Victoria Daniel BLOCK PILER.BUILDING RIGGER Work Phone: [facility] 11-28-2023 09:48-0400 Diastolic blood pressure 66 mm[Hg] Victoria Daniel BLOCK PILER.BUILDING RIGGER Work Phone: [facility] 11-28-2023 09:48-0400 Heart rate 83 /min Victoria Daniel BLOCK PILER.BUILDING RIGGER Work Phone: [facility] 11-28-2023 09:48-0400 Systolic blood pressure 134 mm[Hg] Victoria Daniel BLOCK PILER.BUILDING RIGGER Work Phone: [facility] 07-16-2023 08:06-0500 Body mass index (BMI) [Ratio] 33.97 kg/m2 Kim Beltre MD Work Phone: [facility] 07-16-2023 08:06-0500 Body temperature 97.5 [degF] Kim Beltre MD Work Phone: [facility] 07-16-2023 08:06-0500 Body weight 90.27 kg Kim Beltre MD Work Phone: [facility] 07-16-2023 08:06-0500 Diastolic blood pressure 80 mm[Hg] Kim Beltre MD Work Phone: [facility] 07-16-2023 08:06-0500 Heart rate 37 /min Kim Beltre MD Work Phone: [facility] 07-16-2023 08:06-0500 Respiratory rate 15 /min Kim Beltre MD Work Phone: [facility] 07-16-2023 08:06-0500 SaO2% (BldA) [Mass fraction] 100 % Kim Beltre MD Work Phone: [facility] 07-16-2023 08:06-0500 Systolic blood pressure 110 mm[Hg] Kim Beltre MD Work Phone: [facility] Encounters Encounter Date Encounter Type Care Provider Facility Start: 12-16-2024 End: 12-16-2024 Telephone encounter To Be Assigned [facility] Physicia n Referral Service Comment on above: Medical Record Revie w Start: 12-02-2024 End: 12-02-2024 Bamboo flowsheet Cris Lowe PA Work Phone: [facility] Start: 12-02-2024 End: 12-02-2024 Bamboo flowsheet Cris Lowe PA Work Phone: [facility] Start: 12-02-2024 End: 12-02-2024 Office outpatient visit 15 minutes Cris Lowe PA Work Phone: [facility] Comment on above: Alteration of awaren ess (Primary Dx) Start: 12-02-2024 End: 12-02-2024 ambulatory CRIS LOWE Not Available Start: 08-23-2024 End: 08-23-2024 Letter encounter Aileen Corcoran DDS Work Phone: [facility] Start: 05-21-2024 End: 05-21-2024 Bamboo flowsheet Cris Lowe PA Work Phone: [facility] [address] Start: 05-21-2024 End: 05-21-2024 Bamboo flowsheet Cris Lowe PA Work Phone: [facility] [address] Start: 05-21-2024 End: 05-21-2024 Office outpatient visit 15 minutes Cris Lowe PA Work Phone: [facility] [address] Comment on above: Alteration of awaren ess (Primary Dx) Start: 05-21-2024 End: 05-21-2024 ambulatory CRIS LOWE Not Available Start: 05-18-2024 End: 05-18-2024 Letter encounter Aileen Corcoran DDS Work Phone: [facility] Start: 02-13-2024 End: 02-13-2024 Lab Drop off HERMAN CRANE [facility] Start: 02-13-2024 End: 02-13-2024 ambulatory HERMAN CRANE Facility:[facility] Start: 01-29-2024 End: 01-29-2024 ambulatory CRIS ELBA Not Available Start: 01-11-2024 Telephone encounter Cris Dinh RN Colorectal Surgery Comment on above: Car Body Inspector - O ther Start: 12-28-2023 End: 12-31-2023 Patient encounter procedure Mari Traore DMD Work Phone: [facility] Dentistry Start: 12-28-2023 End: 12-28-2023 Subsequent hospital visit by physician Mari Traore DMD Work Phone: [facility] Ambulatory Surgery Start: 12-28-2023 End: 12-31-2023 ambulatory RYAN GLENDALE SPRINGSDYAN Facility:[facility] Start: 12-25-2023 Telephone encounter Shayy Chandler RN [facility] Pre-Admission Testing Comment on above: Pre-surgical Evaluat ion (DD adult dental restorations 12/27 under [facility] at [place]. PAT completed - consent request sent to main - see future encounter for results. CHRISTINA RN spoke to [facility], confirmed [facility], [place] address, and 0900 arrival time/) Pre-surgical Evaluat ion (Anesthesia Attestaion for dental surgery scanned in library media assistant) Start: 12-20-2023 End: 12-20-2023 Orders Only Victoria Sanchez BLOCK PILER.BUILDING RIGGER Work Phone: General Surgery Comment on above: Sigmoid volvulus (HC C) (Primary Dx) Start: 12-19-2023 End: 12-19-2023 Patient encounter procedure Ling Ridleyclaudia BLOCK PILER-BUILDING RIGGER Work Phone: [facility] Pre-Admission Testing Comment on above: Pre-op testing (Prim marylin Dx); Body mass index (BMI) 31.0-31.9, adult Start: 12-19-2023 End: 12-19-2023 Patient encounter status Ling Coffman BLOCK PILER-BUILDING RIGGER Work Phone: [facility] Work Phone: Start: 12-19-2023 ambulatory RYAN ZURITA Facilit y:[facility] Start: 12-19-2023 Encounter for other preprocedural examination [facility] COFFMAN [facility] Start: 12-11-2023 End: 12-11-2023 ambulatory EPIFANIO YUKO Not Available Start: 12-03-2023 End: 12-04-2023 ambulatory Rafael Giraldo MD Work Phone: Urology Start: 12-03-2023 End: 12-03-2023 Office outpatient visit 5 minutes Oscar Ruiz MD Work Phone: Urology Comment on above: Phimosis (Primary Dx ) Start: 11-28-2023 End: 11-29-2023 ambulatory VICTORIA SANCHEZ Facility:[facility] Start: 11-28-2023 End: 11-28-2023 Patient encounter procedure Victoria Sanchez BLOCK PILER.BUILDING RIGGER Work Phone: General Surgery Comment on above: Postoperative visit (Primary Dx) Start: 11-12-2023 Telephone encounter Cris Dinh RN Colorectal Surgery Comment on above: Car Body Inspector - O ther Start: 11-07-2023 End: 11-07-2023 ambulatory PHOENIX CARDENAS Facility:[facility] Start: 10-28-2023 Evaluation and management of inpatient PHOENIX CARDENAS Facility:[facility] Start: 10-10-2023 Admission to [facility] Coleen Dodson DDS Other Phone: [facility] Start: 07-16-2023 End: 07-16-2023 Emergency department patient visit Kim Beltre MD Work Phone: [facility] Emergency Department Comment on above: bradycardia (Low HR (33)) Start: 07-16-2023 End: 07-16-2023 Subsequent hospital visit by physician Harpreet Mccurdy DDS Work Phone: [facility] Radiology CT Scan Comment on above: Arrived Start: 07-04-2023 End: 07-04-2023 ambulatory HERMAN CRANE Facility:[facility] Start: 07-04-2023 End: 07-04-2023 Lab Drop off HERMAN CRANE [facility] Start: 06-26-2023 Telephone encounter Shanna marquez RN [facility] Pre Surgical Evaluation Comment on above: Pre-surgical Evaluat ion (Informed Consent for dental surgery & Anesthesia consent obtained) Start: 06-22-2023 End: 06-22-2023 Subsequent hospital visit by physician Alin Op Xray 2 [facility] Radiology Comment on above: Pre-op exam Start: 06-22-2023 End: 06-22-2023 Patient encounter procedure Pse Anesthesia [facility] Pre Surgical Evaluation Comment on above: Pre-op evaluation (P rimary Dx) Start: 06-22-2023 End: 06-22-2023 Preprocedural examination done Pse Anesthesia [facility] Work Phone: Start: 05-25-2023 Admission to [facility] Hiram Rodriguez DDS Work Phone: [facility] Start: 01-17-[address] HERMAN [...] other specified special examinations DR HERMAN CRANE [facility] Start: 08-22-2022 End: 08-23-2022 ambulatory [...] Start: 03-29-2022 Telephone encounter To Be Assigned [facility] Physician Referral Service Comment on above: Medical Record Revie w Procedures Date Procedure Procedure Detail Performing Clinician Start: 12-19-2023 Basic metabolic pane l calcium total Ling Markiv BLOCK PILER-BUILDING RIGGER Work Phone: Start: 10-28-2023 Antibody screen PHOENIX CARDENAS Comment on above: Order Comment: Speci men Type: BLOOD SPECIMEN Ordering Facility: [facility] Address: [address] [place] [address] Performed By: #### 2 4321-2, [id number], 2777-1 #### [facility] CLIA [id number] [address] [place] [address] [place] Start: 07-16-2023 End: 07-16-2023 Assay of magnesium Yobany BANG-Luke Work Phone: Start: 07-16-2023 Ct head/brain w/o contrast material Yobany BANG-Luke Work Phone: Start: 06-22-2023 Radiologic exam ches t 2 views Franc Beyer MD Work Phone: Plan of Treatment Date Care Activity Detail Author Start: 2042 Shingles (RZV) Vacci ne (1 of 2) Shingles (RZV) Vaccine (1 of 2) [facility] Start: 07-10-2029 Tetanus vaccination Tetanus (T d or Tdap) Booster [facility] Start: 07-10-2029 Urine microalbumin profile DTaP,Tdap,Td Vaccine (2 - Td or Tdap) [facility] Start: 12-02-2024 End: 12-02-2024 [facility] Comment on above: Arrived Start: 05-21-2024 End: 05-21-2024 Patient encounter procedure 05/21/2024 9:40 AM EDT Office Visit [facility] [address] [place] [id number] Cris Walters PA [address] [place] [address] [facility] [facility] Comment on above: Arrived Start: 04-20-2024 COVID-19 Vaccine ( season) COVID-19 Vaccine ( season) [facility] Start: 04-20-2024 COVID-19 Vaccine ( season) COVID-19 Vaccine ( season) [facility] Start: 04-20-2024 Influenza vaccination Influenza Vacc ine (#1) [facility] Start: 03-11-2024 End: 03-11-2024 Patient encounter procedure 03/11/2024 9:00 AM EDT Office Visit [facility] [address] [place] [address] [address] [place] [address] Iain Lazcano MD [address] [facility] [address] [place] [address] Cataracts Ophthalmology Comment on above: Cataracts Start: 12-28-2023 End: 12-28-2023 Admission to same day surgery center 12/28/2023 10:01 AM EDT - 12/28/2023 12:21 PM EDT Surgery [facility] Ambulatory Surgery [address] [place] [id number] Mari Traore, DMD [address] [place] [address] DENTAL RESTORATIONS [facility] Ambulatory Surgery Comment on above: DENTAL RESTORATIONS Start: 12-28-2023 End: 12-28-2023 DENTAL RESTORATIONS [facility] Start: 12-28-2023 Subsequent hospital visit by physician 12/28/2023 10:01 AM EDT Hospital Encounter [facility] Ambulatory Surgery [address] [place] [address] Mari Traore, DMD [address] [place] [address] [facility] Ambulatory Surgery Start: 12-28-2023 End: 12-28-2023 Patient encounter procedure 12/28/2023 9:00 AM EDT Procedure Visit [facility] [address] [place] [address] Mari Traore, DMD [address] [place], [place] [id number] [facility] Start: 08-20-2023 Behavioral Health Screening Behavioral Health Screening [facility] Start: 08-20-2023 Depression Assessment Depression Ass essment [facility] Start: 07-16-2023 End: 07-16-2023 DENTAL RESTORATIONS DENTAL RESTORATIONS Routine scheduled Caries 07/16/2023 1:45 PM EST [facility] Start: 07-16-2023 End: 07-16-2023 Admission to same day surgery center 07/16/2023 9:27 AM EST - 07/16/2023 11:24 AM EST Surgery [facility] Amb[facility] Surgery [address] [place] [id number] Harpreet Mccurdy, DDS [address] [place] [address] DENTAL RESTORATIONS [facility] Ambulatory Surgery Comment on above: DENTAL RESTORATIONS Start: 07-16-2023 End: 07-16-2023 DENTAL RESTORATIONS DENTAL RESTORATIONS Routine scheduled Caries 07/16/2023 9:27 AM EST [facility] Start: 07-16-2023 Subsequent hospital visit by physician [facility] Amb[facility] Surgery Start: 06-22-2023 End: 06-22-2023 Patient encounter procedure 06/22/2023 2:30 PM EDT Office Visit [facility] [address] [place] [address] Franc Beyer MD [address] [place], [place] [id number] [facility] Start: 04-20-2023 COVID-19 Vaccine ( season) COVID-19 Vaccine ( season) [facility] Start: 04-20-2023 Influenza vaccination Influenza Vacc ine (#1) [facility] Start: 05-20-2022 Influenza vaccination Influenza Vacc ine (#1) [facility] Start: 04-20-2022 Influenza vaccination INFLUENZA (#1) [facility] Start: 08-20-2021 DEPRESSION ASSESSMENT DEPRESSION ASS ESSMENT [facility] Start: 08-10-2021 COVID-19 VACCINE (4 - Booster for Pfizer series) COVID-19 VACCINE (4 - Booster for Pfizer series) [facility] Start: 2019 HPV Vaccine (optiona l start 27-45 years) HPV Vaccine (optional start 27-45 years) [facility] Start: 02-17-2014 Annual wellness visit Annual W ellness Visit (G0438) [facility] Start: 2011 Hepatitis A (HAV) Vaccine (optional start 19+ years) Hepatitis A (HAV) Vaccine (optional start 19+ years) [facility] Start: 2011 Hepatitis B vaccination Hepatitis B (HBV) Vaccine (1 of 3 - 19+ 3-dose series) [facility] Start: 2011 Hepatitis B Vaccine (1 of 3 - 19+ 3-dose series) Hepatitis B Vaccine (1 of 3 - 19+ 3-dose series) [facility] Start: 2011 Urine microalbumin profile DTAP,TDAP,TD (1 - Tdap) [facility] Start: 2010 Annual PCP Team Chronic Disease Visit Annual PCP Team Chronic Disease Visit [facility] Start: 2010 Hepatitis C screening [facility] Start: 2010 HEPATITIS C SCREENING HEPATITIS C SC RENATE [facility] Start: 2010 HIV SCREENING HIV SCREENING [facility] Start: 2010 HIV screening HIV Screening [facility] Start: 2007 HIV screening HIV Test [facility] Start: 2004 Adult depression screening assessment DEPRESSION SCREENING [facility] Start: 1992 HEPATITIS B (1 of 3 - 3-dose series) HEPATITIS B (1 of 3 - 3-dose series) [facility] Start: 1992 Hepatitis B vaccination Hepatitis B (HBV) Vaccine (1 of 3 - 3-dose series) [facility] Start: 1992 Thyroid stimulating hormone measurement TSH [facility] DENTAL RESTORATIONS DENTAL OMAR RATIONS Routine scheduled Caries [facility] URINALYSIS, REFLEX MICROSCOPIC URINALYSIS, REFLEX MICROSCOPIC Lab Routine Screening for genitourinary condition Ordered: 12/03/2023 [facility] Work Phone: Comment on above: Ordered: 12/03/2023 [facility] Immunizations Immunization Date Immunization Notes Care Provider Jason lowe 06-15-2021 influenza, injectabl e, quadrivalent, preservative free To Assigned [facility] 06-15-2021 influenza virus vacc ine, unspecified formulation To Assigned [facility] 05-26-2020 influenza, injectabl e, quadrivalent, preservative free To Assigned [facility] 07-10-2019 tetanus toxoid, redu alex diphtheria toxoid, and acellular pertussis vaccine, adsorbed To Assigned [facility] 06-13-2019 influenza, injectabl e, quadrivalent, preservative free To Assigned [facility] 05-29-2018 influenza, injectabl e, quadrivalent, preservative free To Assigned [facility] 06-13-2017 influenza, injectabl e, quadrivalent, contains preservative To Assigned [facility] 06-10-2015 influenza, injectabl e, quadrivalent, preservative free To Assigned [facility] 06-12-2012 influenza, seasonal, injectable To A ssigned [facility] 05-03-2011 influenza, seasonal, injectable, preservative free To Assigned [facility] 06-15-2010 influenza, seasonal, injectable To A ssigned [facility] 07-07-2009 novel influenza-H1N1 -09, preservative-free, injectable To Assigned [facility] 05-11-2009 influenza, seasonal, injectable To A ssigned [facility] 06-15-2008 influenza, seasonal, injectable To A ssigned [facility] 06-11-2008 influenza virus vacc ine, whole virus To Assigned [facility] Payers Date Payer Category Payer Specific state progr [facility] (list/ local code) TB FUNDED 0000 [id number] 2020 Unknown [id number] 2017 Dental --Stand Alone DENTAL-MEDI CAID [id number] 2017 Medicaid [id number] 2013 Medicare [id number] [id number] .[id number] 2013 Medicare FFS MEDICARE [id number] 1992 Unknown [id number] 2.16.840.1.486209.3.579.2. 727 1992 Unknown [id number] 2.16.840.1.980386.3.579.2. 727 1992 Unknown [id number] 2.16.840.1.707229.3.579.2. 1259 1992 Unknown [id number] 2.16.840.1.044749.3.579.2. 1259 1992 Unknown [id number] 2.16.840.1.274463.3.579.2. 1259 1992 Unknown [id number] 2.16.840.1.105471.3.579.2. 1259 1992 Unknown [id number] 2.16.840.1.125504.3.579.2. 1259 1992 Unknown [id number] 2.16.840.1.813221.3.579.2. 732 1992 Unknown [id number] 2.16.840.1.755203.3.579.2. 732 1992 Unknown [id number] 2.16.840.1.989348.3.579.2. 732 1992 Unknown [id number] 2.16.840.1.095343.3.579.2. 732 1959 Medicaid [id number] 1959 Medicare [id number] Unknown [id number] 2.16.840.1.015473.3.579.2. 593 Unknown [id number] 2.16.840.1.911963.3.579.2. 593 Unknown [id number] 2.16.840.1.176276.3.579.2. 593 Unknown [id number] 2.16.840.1.865599.3.579.2. 593 Unknown [id number] 2.16.840.1.513922.3.579.2. 593 Unknown [id number] 2.16.840.1.799149.3.579.2. 593 Unknown [id number] 2.16.840.1.696262.3.579.2. 593 Unknown [id number] 2.16.840.1.702838.3.579.2. 593 Specific state progr ams (list/ local code) TB FUNDED [id number] Social History Date Type Detail Facility Start: 07-08-2019 End: 12-11-2023 Tobacco smoking status NHIS Never smoked tobacco [facility] Start: 07-08-2019 End: 12-11-2023 Tobacco use and exposure Smokeless tobacco non-user [facility] Start: 02-04-2021 End: 12-31-2023 Alcohol intake [facility] Start: 07-13-2020 History SDOH Alcohol Frequency 1 [facility] Start: 1990 Sex Assigned At Not on file [facility] Start: 05-04-2022 End: 12-19-2023 Tobacco smoking status NHIS Tobacco smoking consumption unknown [facility] Start: 04-24-2022 End: 05-04-2022 Exposure to SARS-CoV-2 (event) Not sure [facility] Start: 06-22-2023 End: 10-29-2023 Gender identity Not on file [facility] Tobacco smoking status No Smokin g Status Entered [facility] Start: 06-22-2023 End: 10-29-2023 History of Social function [facility] Work Phone: Has the [employer] or [employer] threatened to shut off services in your home in past 12Mo Patient unable to answer [facility] Work Phone: How often to you hav e a drink containing alcohol? Never [facility] Work Phone: Start: 07-20-2017 Sex Male (finding) [facility] Clinical Notes 03-29-2022 to 12-16-2024 Telephone Encounter - Roni Lynne - 12/16/2024 2:03 PM EDTTelephone Encounter - Roni Lynne - 12/16/2024 2:03 PM BETI Antonio - 12/02/2024 12:40 PM EDTDischarge Instructions Note Date & Type Note Facility 12-16-2024 Note Outreach Team ([phone]) Contact Details: I did not contact. Pt sees PCP with [facility], but Outreach Team cannot schedule with those providers. Care Gaps Scheduling Medicare AWV / PCP Visit: AWV due Eye Exam: Not due Mammogram: N/A Pap Smear: N/A Health Maintenance (First 20 Items*) Topic Status Date Due Order 1 Hepatitis C Antibody Overdue 2010 2 Hiv Test Overdue 2007 3 Tsh Overdue 1992 4 Hepatitis B (Hbv) Vaccine Overdue 2011 5 Tdap Booster Completed N/A 6 Tetanus (Td Or Tdap) Booster Not Due 07/10/2029 7 Annual Wellness Visit (G0438) Overdue 02/17/2014 8 Shingles (Rzv) Vaccine Not Due 2042 9 Pneumococcal Vaccine(S) Aged Out N/A 10 Hpv Vaccine (Optional Start 27-45 Years) Due On 2019 11 Hepatitis A (Hav) Vaccine (Optional Start 19+ Years) Due On 2011 12 Covid-19 Vaccine Overdue 04/20/2024 13 Covid-19 Vaccine Overdue 04/20/2024 14 Covid-19 Vaccine Overdue 04/20/2024 15 Covid-19 Vaccine Overdue 04/20/2024 16 Covid-19 Vaccine Overdue 04/20/2024 17 Covid-19 Vaccine Overdue 04/20/2024 18 Covid-19 Vaccine Overdue 04/20/2024 19 Covid-19 Vaccine Overdue 04/20/2024 20 Covid-19 Vaccine Overdue 04/20/2024 *Last item repeats if fewer than 20 items are present in Health Maintenance Recent Visits Dept. Specialty Last Visit Details 1 Primary Care Most recent visit in Family Practice, Medicine/Pediatrics, Internal Medicine or Gerontology was on 06/22/2023 with Franc Beyer MD 2 Eye no prior visits in Ophthalmology or Optometry 3 Mammogram Last Mammogram date (10 year lookback): Not Found 4 Pap Smear Last Pap Smear date (10 year lookback): Not Found [facility] 12-16-2024 Telephone encounter Note Outreach Team ([phone]) Contact Details: I did not contact. Pt sees PCP with [facility], but Outreach Team cannot schedule with those providers. Care Gaps Scheduling Medicare AWV / PCP Visit: AWV due Eye Exam: Not due Mammogram: N/A Pap Smear: N/A Health Maintenance (First 20 Items*) Topic Status Date Due Order 1 Hepatitis C Antibody Overdue 2010 2 Hiv Test Overdue 2007 3 Tsh Overdue 1992 4 Hepatitis B (Hbv) Vaccine Overdue 2011 5 Tdap Booster Completed N/A 6 Tetanus (Td Or Tdap) Booster Not Due 07/10/2029 7 Annual Wellness Visit (G0438) Overdue 02/17/2014 8 Shingles (Rzv) Vaccine Not Due 2042 9 Pneumococcal Vaccine(S) Aged Out N/A 10 Hpv Vaccine (Optional Start 27-45 Years) Due On 2019 11 Hepatitis A (Hav) Vaccine (Optional Start 19+ Years) Due On 2011 12 Covid-19 Vaccine Overdue 04/20/2024 13 Covid-19 Vaccine Overdue 04/20/2024 14 Covid-19 Vaccine Overdue 04/20/2024 15 Covid-19 Vaccine Overdue 04/20/2024 16 Covid-19 Vaccine Overdue 04/20/2024 17 Covid-19 Vaccine Overdue 04/20/2024 18 Covid-19 Vaccine Overdue 04/20/2024 19 Covid-19 Vaccine Overdue 04/20/2024 20 Covid-19 Vaccine Overdue 04/20/2024 *Last item repeats if fewer than 20 items are present in Health Maintenance Recent Visits Dept. Specialty Last Visit Details 1 Primary Care Most recent visit in Family Practice, Medicine/Pediatrics, Internal Medicine or Gerontology was on 06/22/2023 with Franc Beyer MD 2 Eye no prior visits in Ophthalmology or Optometry 3 Mammogram Last Mammogram date (10 year lookback): Not Found 4 Pap Smear Last Pap Smear date (10 year lookback): Not Found [facility] 12-16-2024 Miscellaneous Notes Outreach Team ([phone]) Contact Details: I did not contact. Pt sees PCP with [facility], but Outreach Team cannot schedule with those providers. Care Gaps Scheduling Medicare AWV / PCP Visit: AWV due Eye Exam: Not due Mammogram: N/A Pap Smear: N/A Health Maintenance (First 20 Items*) Topic Status Date Due Order 1 Hepatitis C Antibody Overdue 2010 2 Hiv Test Overdue 2007 3 Tsh Overdue 1992 4 Hepatitis B (Hbv) Vaccine Overdue 2011 5 Tdap Booster Completed N/A 6 Tetanus (Td Or Tdap) Booster Not Due 07/10/2029 7 Annual Wellness Visit (G0438) Overdue 02/17/2014 8 Shingles (Rzv) Vaccine Not Due 2042 9 Pneumococcal Vaccine(S) Aged Out N/A 10 Hpv Vaccine (Optional Start 27-45 Years) Due On 2019 11 Hepatitis A (Hav) Vaccine (Optional Start 19+ Years) Due On 2011 12 Covid-19 Vaccine Overdue 04/20/2024 13 Covid-19 Vaccine Overdue 04/20/2024 14 Covid-19 Vaccine Overdue 04/20/2024 15 Covid-19 Vaccine Overdue 04/20/2024 16 Covid-19 Vaccine Overdue 04/20/2024 17 Covid-19 Vaccine Overdue 04/20/2024 18 Covid-19 Vaccine Overdue 04/20/2024 19 Covid-19 Vaccine Overdue 04/20/2024 20 Covid-19 Vaccine Overdue 04/20/2024 *Last item repeats if fewer than 20 items are present in Health Maintenance Recent Visits Dept. Specialty Last Visit Details 1 Primary Care Most recent visit in Family Practice, Medicine/Pediatrics, Internal Medicine or Gerontology was on 06/22/2023 with Franc Beyer MD 2 Eye no prior visits in Ophthalmology or Optometry 3 Mammogram Last Mammogram date (10 year lookback): Not Found 4 Pap Smear Last Pap Smear date (10 year lookback): Not Found documented in this encounter [facility] 12-02-2024 History of Present illness Narrative Subjective Johnny Devine is a 34 y.o. year old male Chief Complaint Patient presents with Seizures No past medical history on file. No past surgical history on file. No family history on file. Social History Tobacco Use Smoking status: Never Smokeless tobacco: Never Substance Use Topics Alcohol use: Not on file HPI Seizure -caregiver denies any seizure since last visit -moods at baseline -he is on Depakote 500mg BID for behavior -denies any missed doses -Caregiver denies any new issues or concerns -appetite and sleep at baseline ROS Review of Systems Constitutional: [...] and heat intolerance. Objective Visit Vitals BP 128/82 Ht 5' 6 Wt 198 lb BMI [...] and may have contributed to his symptoms. The patient had a CT scan of the brain 11/03/23 at [facility] that revealed volume loss, especially in the posterior hemispheric white matter, most likely a chronic finding. He had an EEG that was suggestive of bilateral cortical dysfunction maximum in the left hemisphere and severe diffuse encephalopathy. Repeat EEG 12/20/23 was abnormal due to left temporal slowing suggestive of a structural lesion or dysfunction in that region. He is doing well with no breakthrough seizures since his last visit. Caregiver notes that is mood is at baseline. PLAN Continue Depakote 500mg PO BID for seizure prevention. We will check blood levels of Depakote to make sure these are within normal range. Continue with seizure precautions at care facility. Caregiver was advised to call for any new or worsening symptoms. Follow up in 6 months or sooner for new or worsening symptoms. documented in this encounter [facility] 05-21-2024 History of Present illness Narrative Subjective [...] CT scan of the brain 11/03/23 at [facility] that revealed volume loss, especially in [...] in 6 months documented in this encounter [facility] 02-13-2024 Evaluation + Plan note Diagnostic Tests PendingKeppra Lvl 02/13/24Lamotrigine Level 02/13/24 [facility] 01-11-2024 Telephone encounter Note Jessica from [facility] [phone] is caller. She states was originally told [...] needs at present time. Cris Dinh, RN [facility] 01-11-2024 Miscellaneous Notes Jessica from [facility] [phone] is caller. She states was originally told [...] Cris Dinh, RN documented in this encounter [facility] 12-28-2023 Hospital Discharge instructions Benjamín Guo - 12/28/2023 2:17 PM EDT PERIOPERATIVE DISCHARGE/HOME-GOING INSTRUCTIONS ANESTHESIA - GENERAL (ADULT) If a problem arises, you may contact your physician by calling [phone] and asking for the resident concierge receptionist for Dental service. Special Care Needs: Activity: [...] sent through Care Everywhere.Tooth Extraction Discharge Instructions (Czech)documented in this encounter [facility] 12-28-2023 History and physical note Surgical Attestation: I have reviewed the patient's History and Physical Examination. I have personally seen and evaluated the patient, repeating knox portions. There is no significant interval change. Surgery is still indicated. Yes Consent reviewed and signed by patient/family: Yes Operative site verified and marked: site verified but not marked as not anatomically possible Mari Traore DMD 12/28/2023 10:09 AM [facility] Phone: 12-28-2023 Note Surgical Attestation : I have reviewed the patient's History and Physical Examination. I have personally seen and evaluated the patient, repeating knox portions. There is no significant interval change. Surgery is still indicated. Yes Consent reviewed and signed by patient/family: Yes Operative site verified and marked: site verified but not marked as not anatomically possible Mari Traore DMD 12/28/2023 10:09 AM [facility] 12-28-2023 History and physical note Surgical Attestation: I have reviewed the patient's History and Physical Examination. I have personally seen and evaluated the patient, repeating knox portions. There is no significant interval change. Surgery is still indicated. Yes Consent reviewed and signed by patient/family: Yes Operative site verified and marked: site verified but not marked as not anatomically possible Mari Traore DMD 12/28/2023 10:09 AM documented in this encounter [facility] 12-28-2023 Miscellaneous Notes Brief Operative Note PHE OR 3 Johnny Devine 33 year old male Surgical Contact Serial Number: [id number] Preoperative Diagnosis: Pre-op Diagnosis * Caries [K02.9] Moderate intellectual disability [F79] Postoperative Diagnosis: Moderate intellectual disability [F79] Procedures: Comprehensive exam [68625] Full mouth X-ray [ 37699] Extractions [27955] Restorations [14461] Prophy 08745] Fluoride treatment [73247] Surgeon(s): Surgeon(s): Mari Traore DMD Staff: Reservoir Engineer Nurse: Henrietta Johnson Anesthesia: General Anesthesia Staff: [...] No, Clinical indication for admission: Dr. Mari Traore DMD was present in the OR for the critical portion of the procedure and procedure sign-out. Signed by Reema Whiting DDS 12/28/2023 1;48 pm Surgical Case Number Data Unavailable Operating Room Data Unavailable Preoperative Diagnosis(es): Pre-op Diagnosis * Caries [K02.9] Moderate intellectual disability [F79] Postoperative Diagnosis(es): Moderate intellectual disability[F79] @ENCORD@ Surgeon: Dr. Mari Traore DMD Shipping Associate Surgeon: Reema Whiting DDS Anesthesia: General- Nasal [...] 4 mg/0.1 mL nasal liquid Use 1 [place] in one nostril (alternate sides) as needed [...] Dictated by: Reema Whiting DDS: Dr. Mari Traore DMD was present for the critical portions of the procedure. Reema Whiting DDS 12/28/2023 1:53 pm Blood Attestation: ATTESTATION OF INFORMED CONSENT FOR BLOOD: The transfusion of blood and/or blood components were discussed with the patient and/or legal freight representative. The risks, benefits and alternatives were reviewed. Questions regarding blood transfusions were answered. The patient /or the patient s legal freight representative agree with the plan for transfusion of blood and/or blood components. documented in this encounter [facility] 12-28-2023 Surgery Postoperative evaluation and management note Brief Operative Note PHE OR 3 Johnny Devine 33 year old male Surgical Contact Serial Number: [id number] Preoperative Diagnosis: Pre-op Diagnosis * Caries [K02.9] Moderate intellectual disability [F79] Postoperative Diagnosis: Moderate intellectual disability [F79] Procedures: Comprehensive exam [50052] Full mouth X-ray [ 60929] Extractions [07223] Restorations [35968] Prophy 70080] Fluoride treatment [08868] Surgeon(s): Surgeon(s): Mari Traore DMD Staff: Reservoir Engineer Nurse: Henrietta Johnson Anesthesia: General Anesthesia Staff: [...] No, Clinical indication for admission: Dr. Mari Traore DMD was present in the OR for the critical portion of the procedure and procedure sign-out. Signed by Reema Whiting DDS 12/28/2023 1;48 pm [facility] 12-28-2023 Surgery Surgical operation note Surgical Case Number Data Unavailable Operating Room Data Unavailable Preoperative Diagnosis(es): Pre-op Diagnosis * Caries [K02.9] Moderate intellectual disability [F79] Postoperative Diagnosis(es): Moderate intellectual disability[F79] @ENCORD@ Surgeon: Dr. Mari Traore DMD Shipping Associate Surgeon: Reema Whiting DDS Anesthesia: General- Nasal [...] 4 mg/0.1 mL nasal liquid Use 1 [place] in one nostril (alternate sides) as needed [...] Dictated by: Reema Whiting DDS: Dr. Mari Traore DMD was present for the critical portions of the procedure. Reema Whiting DDS 12/28/2023 1:53 pm [facility] 12-28-2023 Progress note Formatting of t his note is different from the original. Blood Attestation: ATTESTATION OF INFORMED CONSENT FOR BLOOD: The transfusion of blood and/or blood components were discussed with the patient and/or legal freight representative. The risks, benefits and alternatives were reviewed. Questions regarding blood transfusions were answered. The patient /or the patient s legal freight representative agree with the plan for transfusion of blood and/or blood components. [facility] 12-28-2023 History of Present illness Narrative Patient takes his seizure medication with pudding, facility held them today for dental surgery. Caregiver brought capsules with them to pre-op. Per Dr. Saldivar, divalproex 125 mg x 4 capsules (500 mg) were opened and sprinkles given to patient with 50 mL of water in pre-op. 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 MB cusp tip was visualized upon extraction of #17, but well encased in bone and would not be exposed to the oral cavity following healing of the extraction site. Preoperative Diagnosis(es): Pre-op Diagnosis * Caries [K02.9] Moderate intellectual disability [F79] Postoperative Diagnosis(es): Moderate intellectual disability[F79] Surgeon: Dr. Mari Traore DMD Shipping Associate Surgeon: Reema Whiting DDS Anesthesia: General- Nasal [...] of surgery: Stable documented in this encounter [facility] 12-21-2023 Evaluation note Addendum 12/21/2023- Caregiver @ [facility] facility called to relay that patient unable [...] Kiko VASQUEZ RN updated nursing staff @ [facility]. [facility] 12-21-2023 Miscellaneous Notes Addendum 12/21/2023- Caregiver @ [facility] facility called to relay that patient unable [...] Kiko VASQUEZ RN updated nursing staff @ [facility]. Patient was identified by name and date of . Jaswinder Arredondo Patient at risk for falls:No Falls Risk protocol implemented: N/A documented in this encounter [facility] 12-19-2023 Instructions Ling Coffman APRN-BUILDING RIGGER - 12/19/2023 11:26 AM EDT On the [...] for pain. Please hold all Vitamin E, Buckner 3, fish oil and herbal supplements for 1 week prior to surgery. Please use this LIST to prepare for your surgery/procedure: ? Assume that any lab or testing done during your Pre-admission testing appointment is within normal limits unless otherwise contacted. ? Expect a call from [facility] one business day prior to surgery for [...] your Preparing for Your Surgery/Procedure booklet or [email or web address] if you have questions. Contact the Pre-Admission Testing department at [phone] or your surgeon's office with any questions [...] stay with you after surgery. Please call [facility] if you need transportation assistance or have concerns about going home [phone]. ? SLEEP APNEA PATIENTS: Bring your sleep apnea machine and mask. ? PLEASE BE ON TIME. A late arrival may result in the cancellation/ delay of your surgery. Thank you for choosing [facility]; it is our pleasure to care for you documented in this encounter [facility] 12-19-2023 Instructions Shanna Sauceda RN - 12/19/2023 11:26 AM EDT [facility] staff: Since patient is unable to take [...] for pain. Please hold all Vitamin E, Buckner 3, fish oil and herbal supplements for 1 week prior to surgery. Please use this LIST to prepare for your surgery/procedure: ? Assume that any lab or testing done during your Pre-admission testing appointment is within normal limits unless otherwise contacted. ? Expect a call from [facility] one business day prior to surgery for [...] your Preparing for Your Surgery/Procedure booklet or [email or web address] if you have questions. Contact the Pre-Admission Testing department at [phone] or your surgeon's office with any questions [...] stay with you after surgery. Please call [facility] if you need transportation assistance or have concerns about going home [phone]. ? SLEEP APNEA PATIENTS: Bring your sleep apnea machine and mask. ? PLEASE BE ON TIME. A late arrival may result in the cancellation/ delay of your surgery. Thank you for choosing [facility]; it is our pleasure to care for you documented in this encounter [facility] 12-19-2023 Evaluation note Patient was identified by name and date of . Jaswinder Arredondo Patient at risk for falls:No Falls Risk protocol implemented: N/A [facility] 12-19-2023 Miscellaneous Notes Patient was identified by name and date of . Jaswinder Arredondo Patient at risk for falls:No Falls Risk protocol implemented: N/A documented in this encounter [facility] 12-19-2023 History of Present illness Narrative Images from the original note were not included. Pre-Admission Testing Consultation Johnny Devine, [id number] 33 year old Male 12/19/2023 Consult placed to [facility] by Mari Traore, due to significant PMH of Hypothyroidism , Bipolar, Autistic disorder ,Epilepsy [facility] Triage Risk Score Total Score: 3 [...] intervention warranted . Patient with Lamaar from [facility] facility during this appointment Patient is here for pre-admission optimization and education prior to surgery. RECENT ILLNESS: Serious illness or hospitalization within the last six months. Yes 10/28/2023 HOSPITAL COURSE: Johnny Devine is a 33 year old male with developmental delay and no PSH who presents as a transfer to [facility] from [facility] for further management of small bowel obstruction. Given patient's baseline cognitive status, NGT difficult to maintain. He was admitted to the [facility] under care of general surgery and was taken to the OR the following morning for diagnostic laparoscopy. Intra-operative findings demonstrated no adhesins, no apparent hernias, dilated small/large bowel, redundant sigmoid c/f volvulus, easily reduced. After recovering in the PACU, he was taken to the [facility] with NGT in place. Patient arrived to [facility] with 8 Fr pediatric haskins catheter in [...] in home regimen. Stable for discharge to skilled nursing. Neurology Recommendations on Discharge: - Discharge on [...] DENTAL RESTORATIONS; Surgeon: Harpreet Mccurdy DDS; Location: [facility]; Service: Dental Past Medical [...] MG CSDR capsule LABORATORY DATA: CBC @ [facility] 11/07/2023 CBC Order: [id number] Component Ref Range & Units 1 mo [...] 0418 [id number] 110 21 91 Comment: The [place] [employer] (ADA) provides guidance for cutoff [...] Standards of Medical Care in Diabetes 2016, [place] [employer]. Diabetes Care. 2016.39(Suppl 1). 8 0.70 8.2 11/06/23 0943 146 112 18 83 Comment: The [place] [employer] (ADA) provides guidance for cutoff [...] Standards of Medical Care in Diabetes 2016, [place] [employer]. Diabetes Care. 2016.39(Suppl 1). 6 0.69 8.9 11/05/23 0418 142 112 23 96 Comment: The [place] [employer] (ADA) provides guidance for cutoff [...] Standards of Medical Care in Diabetes 2016, [place] [employer]. Diabetes Care. 2016.39(Suppl 1). 5 0.64 7.6 11/04/23 0826 145 112 24 79 Comment: The [place] [employer] (ADA) provides guidance for cutoff [...] Standards of Medical Care in Diabetes 2016, [place] [employer]. Diabetes Care. 2016.39(Suppl 1). 4 0.70 7.7 TESTS REVIEWED: I personally reviewed and interpreting and findings were: CXRay: Chest x-ray was last done on 10/31/2023 EK10/31/2023 @ [facility] NORMAL SINUS RHYTHM ANTEROLATERAL T WAVE [...] 1:39 PM 12/19/2023 documented in this encounter [facility] 12-19-2023 History of Present illness Narrative Images from the original note were not included. Pre-Admission Testing Consultation Johnny Devine, [id number] 33 year old Male 12/19/2023 Consult placed to [facility] by Mari Traore, due to significant PMH of Hypothyroidism , Bipolar, Autistic disorder ,Epilepsy [facility] Triage Risk Score Total Score: 3 [...] intervention warranted . Patient with Lamaar from [facility] facility during this appointment Patient is here for pre-admission optimization and education prior to surgery. RECENT ILLNESS: Serious illness or hospitalization within the last six months. Yes 10/28/2023 HOSPITAL COURSE: Johnny Devine is a 33 year old male with developmental delay and no PSH who presents as a transfer to [facility] from [facility] ED for further management of small bowel obstruction. Given patient's baseline cognitive status, NGT difficult to maintain. He was admitted to the [facility] under care of general surgery and was taken to the OR the following morning for diagnostic laparoscopy. Intra-operative findings demonstrated no adhesins, no apparent hernias, dilated small/large bowel, redundant sigmoid c/f volvulus, easily reduced. After recovering in the PACU, he was taken to the [facility] with NGT in place. Patient arrived to [facility] with 8 Fr pediatric haskins catheter in [...] in home regimen. Stable for discharge to skilled nursing. Neurology Recommendations on Discharge: - Discharge on [...] DENTAL RESTORATIONS; Surgeon: Harpreet Mccurdy DDS; Location: [facility] Surgery Center; Service: Dental Past Medical [...] DATA: CBC @ [facility] 11/07/2023 CBC Order: [id number] Component Ref Range & Units 1 mo [...] 0418 [id number] 110 21 91 Comment: The [place] [employer] (ADA) provides guidance for cutoff [...] Standards of Medical Care in Diabetes 2016, [place] [employer]. Diabetes Care. 2016.39(Suppl 1). 8 0.70 8.2 11/06/23 0943 146 112 18 83 Comment: The [place] [employer] (ADA) provides guidance for cutoff [...] Standards of Medical Care in Diabetes 2016, [place] [employer]. Diabetes Care. 2016.39(Suppl 1). 6 0.69 8.9 11/05/23 0418 142 112 23 96 Comment: The [place] [employer] (ADA) provides guidance for cutoff [...] Standards of Medical Care in Diabetes 2016, [place] [employer]. Diabetes Care. 2016.39(Suppl 1). 5 0.64 7.6 11/04/23 0826 145 112 24 79 Comment: The [place] [employer] (ADA) provides guidance for cutoff [...] Standards of Medical Care in Diabetes 2016, [place] [employer]. Diabetes Care. 2016.39(Suppl 1). 4 0.70 7.7 TESTS REVIEWED: I personally reviewed and interpreting and findings were: CXRay: Chest x-ray was last done on 10/31/2023 EK10/31/2023 @ [facility] NORMAL SINUS RHYTHM ANTEROLATERAL T WAVE [...] 1:39 PM 12/19/2023 documented in this encounter [facility] 12-19-2023 Note Pre-Admission Testin g Consultation Johnny Devine, [id number] 33 year old Male 12/19/2023 Consult placed to PAT by Mari Traore, due to significant PMH of Hypothyroidism , [...] intervention warranted . Patient with Lamaar from [facility] facility during this appointment Patient is here for pre-admission optimization and education prior to surgery. RECENT ILLNESS: Serious illness or hospitalization within the last six months. Yes 10/28/2023 HOSPITAL COURSE: Johnny Devine is a 33 year old male with developmental delay and no PSH who presents as a transfer to [facility] from [facility] for further management of small bowel obstruction. Given patient's baseline cognitive status, NGT difficult to maintain. He was admitted to the [facility] under care of general surgery and was taken to the OR the following morning for diagnostic laparoscopy. Intra-operative findings demonstrated no adhesins, no apparent hernias, dilated small/large bowel, redundant sigmoid c/f volvulus, easily reduced. After recovering in the PACU, he was taken to the [facility] with NGT in place. Patient arrived to [facility] with 8 Fr pediatric haskins catheter in [...] in home regimen. Stable for discharge to skilled nursing. Neurology Recommendations on Discharge: - Discharge on [...] SERVICES; Ser (more content not included)... [facility] 12-03-2023 Note HNO ID: [id number] Author: OSCAR RUIZ MD Service: ? Author [...] from ongoing urologic care. Oscar Ruiz MD [facility] 12-03-2023 Note Patient Outreach (UR OLMN) JOHNNY DEVINE ([id number]) 1990 M Date Time Provider Department 12/03/23 RAFAEL GIRALDO During your visit today, we recorded the following information about you: Allergies As of Date: 12/03/2023 Noted Allergy Reaction BIAXIN (CLARITHROMYCIN) 05/04/2022 14 - Other: See Comments Comments: caregiver does not know Date Reviewed: 12/03/2023 Reviewed by: Sukhdeep Barton [facility] - Fully Assessed Visit Diagnosis:Screening for genitourinary condition [Z13.89] Order(s):URINALYSIS, REFLEX MICROSCOPIC [[id number]] Order #: [id number] Prescriptions as of 12/06/2023 - cloNIDine HCl [...] 12/03/2023 Noted Resolved SBO (small bowel obstruction) ([facility]) [K56.609] 10/28/2023 10/31/2023 Bipolar disorder (HCC) [F31.9] 09/16/2018 Hypothyroidism [E03.9] 09/16/2018 Obsessive-compulsive disorder [F42.9] 09/16/2018 Moderate intellectual disability [F71] 09/16/2018 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 Author Type: Nurse Practitioner Type: Progress Notes Filed: 11/28/2023 10:19 Note Text: [facility] Clinic Date: November 28, 2023 Johnny Devine 33 year old male CHIEF COMPLAINT: Patient presents for follow up from surgery. HPI: Here for follow up after diagnostic laparotomy on 10/29/[address] Beffa. Patient also underwent a dorsal slit procedure with urology on 10/30/2023 for paraphimosis. Patient with a ladle cleaner today to discuss his postoperative course since [...] for further surgery discussion Victoria Sanchez, MSN, BLOCK PILER-BUILDING RIGGER November 28, 2023 [facility] 11-28-2023 History of Present illness Narrative [facility] Clinic Date: November 28, 2023 Johnny Devine 33 year old male CHIEF COMPLAINT: Patient presents for follow up from surgery. HPI: Here for follow up after diagnostic laparotomy on 10/29/[address] Robin. Patient also underwent a dorsal slit procedure with urology on 10/30/2023 for paraphimosis. Patient with a ladle cleaner today to discuss his postoperative course since [...] for further surgery discussion Victoria Sanchez, MSN, BLOCK PILER-BUILDING RIGGER November 28, 2023 documented in this encounter [facility] 11-28-2023 Nurse Note What is the reason for your visit today? Post op Who is your referring physician? Dr. Sanchez Are you having poor oral intake? NO Have you had unintentional weight loss of 15 lbs/7 Kg in the last 3-6 months? NO Bowels: regular Wound: clean & dry Temperature: No Drains: No documented in this encounter [facility] 11-12-2023 Miscellaneous Notes [facility] care facility and spoke to Rosy. Patient [...] Cris Dinh, RN documented in this encounter [facility] 11-07-2023 Note HNO ID: [id number] Author: HERMAN SALOMON RN Service: Care Management Author Type: Registered Nurse Type: Care Mgt Progress Note Filed: 11/07/2023 14:56 Note Text: CARE MANAGEMENT DISCHARGE NOTE SERVICE DATE: November 07, 2023 SERVICE TIME: 2:56 PM Admission Date: 10/28/2023 LOS: 10 days Discharge Arrangement Discharge Arrangement: [facility] Services Arranged Medical Services: Other: See Comment (no services indicated) Caregiver Assessment Caregiver is ready, willing and able to meet the patient's needs as recommended by the inter-professional team: Yes Name of Caregiver: [employer] Transportation Arrangements Transportation Arrangements: Car Destination: [facility] Additional Information: Patient d/c ready to [facility] with no skilled needs identified. Patient and bedside RN aware of plan. nursing home to transport patient home via private auto. SIGNATURE: Herman Salomon RN PATIENT NAME: Johnny Devine DATE: November 07, 2023 TIME: 2:55 PM CONTACT #: [phone] [facility] 11-07-2023 Note HNO ID: [id number] Author: GIA MULLER MD Service: General Surgery [...] be discussed with Staff, Dr. Boy MD. Giaaris Archuleta MD Abdominal Wall Reconstruction Fellow SUBJECTIVE: [...] * DORSAL SLIT FORESKIN EXCEPT - General [facility] 11-07-2023 Note HNO ID: [id number] Author: MAYANK READ, MIRIMA Service: Nursing Author Type: Registered Nurse Type: Nursing Progress Note Filed: 11/07/2023 09:25 Note Text: Paged primary team of low BP. [facility] 11-06-2023 Note HNO ID: [id number] Author: ALEXANDRA CHAIREZ MD Service: General Surgery [...] Chairez MD General Surgery Resident Екатерина(Jacob No): [phone] Grundfest(Boy Alcaraz Petro): [phone] After 6PM + Weekends: [phone] INTERVAL EVENTS / PERTINENT REVIEW OF SYSTEMS: [...] * DORSAL SLIT FORESKIN EXCEPT - General [facility] 11-06-2023 Note HNO ID: [id number] Author: BERNARDA SUE MD Service: Neurology General [...] DATE: November 06, 2023 TIME: 12:26 AM [facility] 11-05-2023 Note HNO ID: [id number] Author: LEEANN TELLES MD Service: General Surgery [...] as appropriate, non-distended Leeann Telles MD PGY1 [facility] 11-05-2023 Note HNO ID: [id number] Author: JUAQUIN KRISHNAMURTHY RN Service: Nursing Author [...] to bedside, Valium ordered at this time. [facility] 11-05-2023 Note HNO ID: [id number] Author: HERMAN SALOMON RN Service: Care Management Author Type: Registered Nurse Type: Care Mgt Progress Note Filed: 11/05/2023 11:21 Note Text: CARE MANAGEMENT PROGRESS NOTE SERVICE DATE: 11/05/2023 SERVICE TIME: 11:20 AM LOS: 8 days [place] of Choice Explained: [place] of Choice Given: No Reason Not Given: No placements necessary Anticipated # of Days Until Discharge: 4 Needs Prior to Discharge: Needs Prior to Discharge: To Be Determined Post-Acute Discharge Plan: Patient from [facility]. Plan is to return at discharge. specialty food products supervisor is Magi [phone]. Per Magi, she will provide transport at discharge. Magi is requesting an abdominal binder at discharge due to patient's history of self-injurious behavior. 33 year old male POD #7 diagnostic laparoscopy. Patient is non-verbal, developmental delay and lives in skilled nursing. No skilled needs anticipated. SIGNATURE: Herman Salomon RN PATIENT NAME: Johnny Devine DATE: November 05, 2023 TIME: 11:19 AM PAGER/CONTACT #: [phone] [facility] 11-05-2023 Note HNO ID: [id number] Author: CONNIE CAICEDO MD Service: Neurology General [...] SIGNATURE: Bruce Resendiz MD PATIENT NAME: Johnny Devien DATE: November 05, 2023 TIME: 10:26 AM [...] Dr. Almanzar. Connie Caicedo MD 5:49 PM [facility] 11-05-2023 Note HNO ID: [id number] Author: ALEXANDRA CHAIREZ MD Service: General Surgery [...] Chairez MD General Surgery Resident Екатерина(Jacob No): [phone] Grundfest(Kieran, Boy, Misti): [phone] After 6PM + Weekends: [phone] INTERVAL EVENTS / PERTINENT REVIEW OF SYSTEMS: [...] * DORSAL SLIT FORESKIN EXCEPT - General [facility] 11-04-2023 Note HNO ID: [id number] Author: ALEXANDRA CHAIREZ MD Service: General Surgery [...] Neuro: continue lorazepam TID per neurology(clarified with [facility] and patient has been getting scheduled lorazepam [...] Chairez MD General Surgery Resident Екатерина(Jacob No): [phone] Grundfest(Boy Alcaraz, Misti): [phone] After 6PM + Weekends: [phone] INTERVAL EVENTS / PERTINENT REVIEW OF SYSTEMS: [...] * DORSAL SLIT FORESKIN EXCEPT - General [facility] 11-03-2023 Note HNO ID: [id number] Author: ZAIRA ROBERT MD Service: General Surgery [...] (Res) November 03, 2023, 10:29 AM P: [phone] INTERVAL EVENTS / PERTINENT REVIEW OF SYSTEMS: [...] * DORSAL SLIT FORESKIN EXCEPT - General [facility] 11-03-2023 Note HNO ID: [id number] Author: LYLE TRINIDAD RN Service: ? Author Type: Registered Nurse Type: Progress Notes Filed: 11/03/2023 22:32 Note Text: This typewriter operator automatic was called by another nurse that pt had a witnessed 20 seconds of seizure episode. AMET called and team notified and orders given. [facility] 11-02-2023 Note HNO ID: [id number] Author: LEEANN TELLES MD Service: General Surgery [...] as appropriate, non-distended Leeann Telles MD PGY1 [facility] 11-02-2023 Note HNO ID: [id number] Author: HERMAN SALOMON, MIRIAM Service: Care Management Author Type: Registered Nurse Type: Care Mgt Progress Note Filed: 11/02/2023 11:43 Note Text: CARE MANAGEMENT WEEKEND PLANNING NOTE DISCHARGE OR POSSIBLE DISCHARGE Date/Time: TBD Disposition: [facility] Transport: Car /Magi Other Concerns: Patient from [facility]. Plan is to return at discharge. specialty food products supervisor is Magi [phone]. Per Magi, she will provide transport at discharge. She will need to be contacted if patient ready to discharge over the weekend. Magi is requesting an abdominal binder at discharge due to patient's history of self-injurious behavior. 33 year old male POD #4 diagnostic laparoscopy. Patient is non-verbal, developmental delay and lives in skilled nursing. 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 SIGNATURE: Herman Salomon RN PATIENT NAME: Johnny Devine DATE: November 02, 2023 TIME: 11:42 AM PAGER/CONTACT #: [phone] [facility] 11-02-2023 Note HNO ID: [id number] Author: FRANCK MAGDALENO MD Service: General Surgery [...] Andrews MD Acute Care Surgery Resident PAGER [phone] INTERVAL EVENTS / PERTINENT REVIEW OF SYSTEMS: [...] * DORSAL SLIT FORESKIN EXCEPT - General [facility] 11-01-2023 Note HNO ID: [id number] Author: ANA LUISA FARR MD Service: General [...] , appreciate Recs (below); haskins out at [facility], f/u TOV - Recommend applying vaseline [...] Farr MD Acute Care Surgery Resident PAGER [phone] INTERVAL EVENTS / PERTINENT REVIEW OF SYSTEMS: No acute events overnight. Distended abd in AM Passing gas OBJECTIVE: Intake/Output Summary (Last 24 hours) at 11/02/2023 0524 Last data filed at 11/02/2023 0212 Gross per 24 hour Intake 1025 ml Output 1202 ml Net -177 ml PHYSICAL EXAM: 11/01/23 1427 11/01/23 2100 11/01/23 2112 11/02/23 0000 BP: 134/74 117/78 Pulse: (!) 57 Resp: 17 Temp: 36.7 ?C (98.1 ?F) 36.5 ?C [...] * DORSAL SLIT FORESKIN EXCEPT - General [facility] 10-31-2023 Note HNO ID: [id number] Author: ANA LUISA FARR MD Service: General [...] Farr MD Acute Care Surgery Resident PAGER [phone] INTERVAL EVENTS / PERTINENT REVIEW OF SYSTEMS: [...] Drain Duration Indwelling Urinary Catheter 10/30/23 0811 [facility] [place]ins 10 Fr 1 day SURGERY/PROCEDURE: Procedure(s) and Anesthesia Type: * DORSAL SLIT FORESKIN EXCEPT - General [facility] 10-31-2023 Note HNO ID: [id number] Author: HEAVEN CAMACHO MD Service: Urology Author [...] clinical indicators: x Hypophosphatemia Other, please specify [facility] 10-31-2023 Note HNO ID: [id number] Author: BEATRIZ MEHTA MD Service: General Surgery [...] Mehta MD General Surgery Resident General Surgery: [phone] On nights (6 pm to 6 am) and on Weekends/Holidays, please page the on-call pager: [phone] 10/31/23 2:39 AM [facility] 10-31-2023 Note HNO ID: [id number] Author: JUAQUIN KRISHNAMURTHY RN Service: Nursing Author Type: Registered Nurse Type: Progress Notes Filed: 10/31/2023 01:48 Note Text: Messaged Night team Dr. Mehta about haskins drainage turning bloody. Patient is asleep and comfortable [facility] 10-30-2023 Note HNO ID: [id number] Author: JEREMIE JOAQUIN MD Service: ? Author [...] October 30, 2023 TIME: 8:11 AM CSN: [id number] [facility] 10-30-2023 Note HNO ID: [id number] Author: JEREMIE JOAQUIN MD Service: ? Author Type: Anesthesiologist Type: Anesthesia Procedure Notes Filed: 10/30/2023 11:59 Note Text: ANESTHESIOLOGY PROCEDURE NOTE Airway General Information Procedure Start Time/Medication Administration: 10/30/2023 7:46 AM Patient location during procedure: OR Timeout Performed Pre-procedure: timeout performed Consent Obtained: Yes Patient identity confirmed: arm band, care coding team lead and patient Staffing Anesthesiologist: Jeremie Joaquin MD Performed by: SRNA and anesthesiologist Indications and Patient Condition Indications for airway management: anesthesia Preoxygenated: yes anesthesia circuit Patient position: sniffing Method: rapid sequence Cricoid Pressure: No Manual In-Line Stabilization: No Difficult Mask: No Final Airway Details Final airway type: endotracheal airway Final Endotracheal Airway: ETT Cuffed: yes Successful intubation technique: video laryngoscopy Devices used: [employer] Endotracheal tube insertion site: oral Blade size: [...] gastric contents in oropharynx. SIGNATURE: Nilay Zimmer APRN.BRUSH MACHINE SETTER PATIENT NAME: Johnny Devine DATE: October 30, 2023 TIME: 7:58 AM CSN: [id number] [facility] 10-30-2023 Note HNO ID: [id number] Author: FRANCK MAGDALENO MD Service: General Surgery [...] Andrews MD Acute Care Surgery Resident PAGER [phone] INTERVAL EVENTS / PERTINENT REVIEW OF SYSTEMS: [...] <1 day Indwelling Urinary Catheter 10/30/23 0130 [facility] H[place]ins 8 Fr <1 day SURGERY/PROCEDURE: Procedure(s) and Anesthesia Type: * DORSAL SLIT FORESKIN EXCEPT - General [facility] 10-29-2023 Note HNO ID: [id number] Author: HERMAN SALOMON RN Service: Care Management [...] by: Per Department Practice Potential Transition Plans [facility]/Supervised Living Advance Directives Current Advance Directive: Other Document: See Comment (Legal guardian) In Chart: Yes Up To Date and Valid: Yes Current Living Arrangements and Support Lives with: Other person(s) [facility] Type of Residence: [facility] Care Facility Name: [facility] Support: Home care staff, Family members How do you manage to accomplish the following: Independent: Ambulation Dependent: Bathe/Shower;Dress;Meals/Meal Prep;Going to the bathroom;Medication Management;Transportation to appointments/community Current Services/Equipment Current Post-Acute Service(s): None [place] of Choice Explained: [place] of Choice Given: No Reason Not Given: No placements necessary Are you interested in bedside delivery of your medications? No Discharge Planning Participant(s): Other person(s);Guardian Name/Relationship: Magi/Principal Planner Patient/Family Comments: Caregiver Assessment: Caregiver is ready, willing and able to meet the patient's needs as recommended by the inter-professional team: Yes Name of Caregiver: [facility] Transport at Discharge: Transportation Arrangements: Car Destination: Home Needs Prior to Discharge: Needs Prior to Discharge: To Be Determined Post-Acute Discharge Plan: 33 year old male POD #0 diagnostic laparoscopy. Patient is non-verbal, developmental delay and lives in skilled nursing. CM met with patient's legal guardian Delbert and group billing coordinator Magi at bedside. Plan is to return to skilled nursing at discharge. Per Magi [phone]. [phone], she will provide transport. Magi is requesting an abdominal binder at discharge due to patient's history of self-injurious behavior. CM will continue to follow for transitional care needs. SIGNATURE: Herman Salomon RN PATIENT NAME: Johnny Devine DATE: October 29, 2023 TIME: 4:00 PM CONTACT #: [phone] [facility] 10-29-2023 Note HNO ID: [id number] Author: KENZIE MORE APRN.BRUSH MACHINE SETTER Service: ? Author Type: Nurse Restaurant Crew Type: Anesthesia Procedure Notes Filed: 10/29/2023 10:18 Note Text: ANESTHESIOLOGY PROCEDURE NOTE Airway General Information Procedure Start Time/Medication Administration: 10/29/2023 10:00 AM Patient location during procedure: OR Timeout Performed Pre-procedure: timeout performed Consent Obtained: Yes Patient identity confirmed: arm band, care coding team lead and family Staffing BRUSH MACHINE SETTER: Kenzie More APRN.BRUSH MACHINE SETTER Indications and Patient Condition Indications for airway management: anesthesia Preoxygenated: yes anesthesia circuit Method: rapid sequence Difficult Mask: No Final Airway Details Final airway type: endotracheal airway Final Endotracheal Airway: ETT Cuffed: yes Successful intubation technique: video laryngoscopy Devices used: [employer] Endotracheal tube insertion site: oral Blade: Raj Blade size: #4 ETT size (mm): 7.5 Placement verified by: capnometry Cormack-Lehane Classification: grade I - full view of glottis Number of attempts at approach: 1 Failed airway: no Unrecognized esophageal intubation: no Airway not difficult SIGNATURE: Kenzie More APRN.BRUSH MACHINE SETTER PATIENT NAME: Johnny Devine DATE: October 29, 2023 TIME: 10:17 AM CSN: [id number] [facility] 10-29-2023 Note HNO ID: [id number] Author: ANA LUISA FARR MD Service: General [...] Farr MD Acute Care Surgery Resident PAGER [phone] INTERVAL EVENTS / PERTINENT REVIEW OF SYSTEMS: [...] Anesthesia Type: * EXPLORATORY LAPAROTOMY - General [facility] 10-28-2023 History of Past i llness Narrative Problem Noted Date Diagnosed Date Resolved Date SBO (small bowel obstruction) 10/28/2023 10/31/2023 documented as of this encounter (statuses as of 11/12/2023) [facility] History of Past illness Narrative* Problem Noted Date Diagnosed Date Resolved Date SBO (small bowel obstruction) 10/28/2023 10/31/2023 documented as of this encounter (statuses as of 11/29/2023) [facility]-10[facility]2024 History of Past illness Narrative* Problem Noted Date Diagnosed Date Resolved Date SBO (small bowel obstruction) 10/28/2023 10/31/2023 documented as of this encounter (statuses as of 12/04/2023) [facility]-10[facility]20[facility] History of Past illness Narrative* Problem Noted Date Diagnosed Date Resolved Date SBO (small bowel obstruction) 10/28/2023 10/31/2023 documented as of this encounter (statuses as of 12/06/2023) [facility]11-27-2023 Hospital Discharge instructions* Discharge Instructions* Yobany [...] be sent through Care Everywhere. * Bradycardia (Czech) documented in this [id number] Emergency department Note* Leila Cifuentes RN - 07/16/2023 8:01 AM EST Permission treat given from Cate legal guardian [id number] Emergency department Note* Leila Cifuentes RN - 07/16/2023 8:01 AM EST Permission treat given from Cate legal guardian documented in this [id number] Evaluation + Plan note Diagnostic Tests Pending * [place] Level 07/04/23 [facility]11-07-2023 Telephone encounter Note* Telephone Encounter - Shanna Sauceda RN - 06/26/2023 11:14 AM EST Informed Consent for dental surgery & Anesthesia consent obtained and scanned into [employer]. Scheduled for surgery 07/16/2023. [id number] Miscellaneous Notes* Telephone Encounter - Shanna Sauceda RN - 06/26/2023 11:14 AM EST Informed Consent for dental surgery & Anesthesia consent obtained and scanned into [employer]. Scheduled for surgery 07/16/2023. documented in this [id number] Evaluation note* PSE Appt H&P - Lacey Wilson MD - 06/22/2023 3:10 PM EDT Presurgical Evaluation (Pre-Admission Testing) Consultation Johnny Devine, [id number] 32 year old Male 06/22/2023 Consult placed [...] DENTAL RESTORATIONS; Surgeon: Harpreet Mccurdy DDS; Location: [facility]; Service: Dental ANESTHESIA REVIEW [...] - referring and communicating with other health childcare center director (when not separately reported) - documenting clinical information in the electronic or other health record - independently interpreting results (not separately reported) and communicating results to the patient/family/caregiver - care coordination (not separately reported). Interviewer signature: Lacey Wilson MD 3:10 PM 06/22/2023 [id number] Miscellaneous Notes* PSE Appt H&P - Lacey Wilson MD - 06/22/2023 3:10 PM EDT Presurgical Evaluation (Pre-Admission Testing) Consultation Johnny Devine, [id number] 32 year old Male 06/22/2023 Consult placed [...] DENTAL RESTORATIONS; Surgeon: Harpreet Mccurdy DDS; Location: [facility]; Service: Dental ANESTHESIA REVIEW [...] - referring and communicating with other health childcare center director (when not separately reported) - documenting clinical information in the electronic or other health record - independently interpreting results (not separately reported) and communicating results to the patient/family/caregiver - care coordination (not separately reported). Interviewer signature: Lacey Wilson MD 3:10 PM 06/22/2023 documented in this [id number] Miscellaneous Notes* Telephone Encounter - Lory Dan [facility] - 05/18/2022 3:18 PM EDT [...] leave a message. * Telephone Encounter - Raydiance Sec - 05/17/2022 3:31 PM EDT Pt's aunt returning a call to Dr. Morales to discuss eye care for Johnny. Please try to reach her again at [phone] (Cate Tin) [facility] in [facility] Miscellaneous Notes* Telephone Encounter - Raydiance Sec - 05/08/2022 9:01 AM EDT Nurse from [facility] where he resides called for [facility] for his file. Attn: Melanie Pickard [phone]. Surgery schedulers name and # was provided. documented in this encounter[facility] Miscellaneous Notes* Telephone Encounter - Grupo [...] ADLs currently. He currently lives in a skilled nursing and has a significant history of self-injurious behaviors including banging his head on things and punching his eyes. She believes cataract tarun result of trauma, and I agree with her. These behaviors still happen on a weekly basis, and whilethere's 12/03 supervision at the skilled nursing, he has a lot of private time [...] week. Grupo Morales MD documented in [facility] History of Present illness Narrative* Angel [...] 04, 2022 10:56 AM documented in this encounter[facility] Telephone encounter Note * Telephone Encounter - Jose Miguel Jnoes - 03/29/2022 1:12 PM EDT Care Gaps Scheduling Contact Details: I did not contact pt. Encounter 07/15/21 indicates pt does not see providers at [facility] at this time. Health Maintenance Due: Medicare AWV / PCP Visit: Due Eye Exam: Not due Foot Exam: Not due Annual Blood Work: Due Mammogram: N/A FIT: Not due [id number] Miscellaneous Notes* Telephone Encounter - Jose Miguel Jones - 03/29/2022 1:12 PM EDT Care Gaps Scheduling Contact Details: I did not contact pt. Encounter 07/15/21 indicates pt does not see providers at [facility] at this time. 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 Other and combined forms of senile cataract [facility] Diagnosis Caries- Primary Unspecified dental [...] aftercare following surgery [facility] Phimosis- Primary Redundant prepuce and phimosis [facility]* Diagnosis Screening for genitourinary condition Screening for other and unspecified genitourinary condition [facility]* Diagnosis Caries- Primary Unspecified dental caries Pre-op testing- Primary Preoperative examination, unspecified Body mass index (BMI) 31.0-31.9, adult Caries Unspecified dental caries [facility] Diagnosis Sigmoid volvulus (HCC)- Primary Volvulus [facility] Diagnosis Caries- Primary Unspecified dental caries Pre-op testing- Primary Preoperative examination, unspecified Body mass index (BMI) 31.0-31.9, adult Caries Unspecified dental caries [facility] Caries- Primary Unspecified dental caries [facility] Diagnosis Alteration of awareness- Primary [facility]* Diagnosis Caries- Primary Unspecified dental caries documented in this encounter [facility] Work Phone: Evaluation note* Diagnosis Alteration of awareness- Primary [facility] Narrative No data available for this section [facility] No data available for this section [facility] No data available for this section [facility] Summary Purpose Family History No Family History Records Found No data available for this section No Family History Records Found No data [...] t Referred To Contact Anesthesiology Diagnoses Caries Tio-Harpreet England, DDS [address] [place] [address] [facility] PRE SURGICAL EVAL [address] [place] [address] Referral ID Status Reason Start Date Expiration Date V isits Requested Visits Authorized [id number] Pending Review 05/25/2023 05/25/2024 1 1 Scheduling Instructions Your surgical team will reach out to you to schedule a preadmission testing appointment. Question Answer Reason for consult? Recommended PSE Risk Score Specialty Diagnoses / Procedures Referred By Contmigdalia t Referred To Contact Radiology Diagnoses Pre-op exam Procedures XR CHEST PA+LAT 2 VIEWS Franc Beyer MD [address] [place] [address] [facility] DIAGNOSTIC RADIOLOGY [address] [place], [place] [id number] Referral ID Status Reason Start Date Expiration Date Visits Re quested Visits Authorized [id number] Closed 06/22/2023 06/21/2024 1 1 Specialty Diagnoses / Procedures Referred By Contac t Referred To Contact Cardiology Diagnoses Bradycardia History of autism Nonverbal Moderate intellectual disability Yobany Smith PA-C [address] [place] [address] [facility] C[facility] HV [address] [place] [address] Referral ID Status Reason Start Date Expiration Date V isits Requested Visits Authorized [id number] Pending Review 07/16/2023 07/16/2024 3 3 Scheduling Instructions Please call the [facility] at [phone] to schedule an appointment if one was not made for you today. Question Answer What is the primary reason for consult? Abnormal EKG [13] - nonverbal patient, asymptomatic bradycardia on lopressor At what location would you like the patient to be seen? [place] ([address]) Specialty Diagnoses / Procedures Referred By Contac t Referred To Contact Colon and Rectal Surgery Diagnoses Sigmoid volvulus (HCC) Procedures CONSULT TO COLO-RECTAL SURGERY OFFICE/OUTPATIENT [facility] 60 MINUTES Victoria Sanchez APRN.BUILDING RIGGER [address] [place], [place] [id number] Juventino Fairbanks MD [address] [place] [id number] Referral ID Status Reason Start Date Expiration Date Visits Requested Visits Authorized [id number] Authorized PCP Requested Referral 12/20/2023 12/19/2024 1 1 Specialty Diagnoses / Procedures Referred By Contac t Referred To Contact Anesthesiology Diagnoses Harpreet Anand DDS [address] [place] [phone] [facility] PRE ADMISSION TESTING [address] [place] [address] Referral ID Status Reason Start Date Expiration Date V isits Requested Visits Authorized [id number] Authorized 10/10/2023 10/10/2024 1 1 Scheduling Instructions [...] PA+LAT 2 VIEWS Franc Beyer MD [address] [place] [address] [facility] DI[facility]NO[facility] RADIOLOGY [address] [place] [address] Referral ID Status Reason Start Date Expiration Date Visits Re quested Visits Authorized [id number] Closed 06/22/2023 06/21/2024 1 1 Reason Onset Date Comments Pre-surgical Evaluation 06/26/2023 Informed Consent for dental surgery & Anesthesia consent obtained Reason Comments bradycardia Low HR (33) Specialty Diagnoses / Procedures Referred By Johan mcfadden Referred To Contact Ambulatory Surgery Diagnoses Caries Caries [K02.9] Procedures UNLISTED PROCEDURE, DENTOALVEOLAR STRUCTURES ANESTHESIA, INTRAORAL PROC, W/BX; NOS DENTAL RESTORATIONS Harpreet Mccurdy, DDS [address] [place] [address] [facility] [address] [place] [id number] Phone: [phone] Referral ID Status Reason Start Date Expiration Date Visits Re quested Visits Authorized [id number] 3 3 Reason Comments Car Body Inspector - Other Reason Comments Post Op Reason Onset Date Comments Pre-surgical Evaluation 12/25/2023 DD adult dental restorations 12/27 under [facility] at [place]. PAT completed - consent request sent to main - see future encounter for results. PAT RN spoke to [facility], confirmed [facility], [place] address, and 0900 arrival time Reason Onset Date Comments Pre-surgical Evaluation 12/25/2023 Anesthes ia Attestaion for dental surgery scanned in library media assistantmanager of investigations Diagnoses / Procedures Referred By Johan mcfadden Referred To Contact Ambulatory Surgery Diagnoses Caries Caries [[id number]] Procedures UNLISTED PROCEDURE, DENTOALVEOLAR STRUCTURES ANESTHESIA, INTRAORAL PROC, W/BX; NOS DENTAL RESTORATIONS Mari Traore DMD [address] [place], [place] [id number] [facility] [address] [place] [id number] Phone: [phone] Referral ID Status Reason Start Date Expiration Date Visits Re quested Visits Authorized [id number] 3 3 Reason Comments Seizures Reason Onset Date Comments Medical Record Review 12/16/2024 Care Teams (unrecognized sec tion and content) Car Stower Relationship Specialty Start Date End Date Aileen Corcoran DDS [address] [place], [place] [phone] Resident Dentistry 08/20/20 Car Stower Relationship Specialty Start Date End Date Aileen Corcoran DDS [address] [place] [address] Resident Dentistry 08/20/20 Car Stower Relationship Specialty Start Date End Date Aileen Corcoran DDS [address] [place], [place] [phone] Resident Dentistry 08/20/20 Car Stower Relationship Specialty Start Date End Date Aileen Corcoran DDS [address] [place], [place] [phone] Resident Dentistry 08/20/20 Car Stower Relationship Specialty Start Date End Date Aileen Corcoran DDS [address] [place], [place] [phone] Resident Dentistry 08/20/20 Car Stower Relationship Specialty Start Date End Date Aileen Corcoran DDS [address] [place], [place] [phone] Resident Dentistry 08/20/20 Car Stower Relationship Specialty Start Date End Date Aileen Corcoran DDS [address] [place] [address] Resident Dentistry 08/20/20 Car Stower Relationship Specialty Start Date End Date Aileen Corcoran DDS [address] [place] [address] Resident Dentistry 08/20/20 Car Stower Relationship Specialty Start Date End Date Aileen Corcoran DDS [address] [place] [address] Resident Dentistry 08/20/20 Car Stower Relationship Specialty Start Date End Date Aileen Corcoran DDS [address] [place] [phone] Resident Dentistry 08/20/20 Car Stower Relationship Specialty Start Date End Date Aileen Corcoran DDS [address] [place] [address] Resident Dentistry 08/20/20 Car Stower Relationship Specialty Start Date End Date Aileen Corcoran DDS [address] [place] [address] Resident Dentistry 08/20/20 Car Stower Relationship Specialty Start Date End Date Aileen Corcoran DDS [address] [place] [address] Resident Dentistry 08/20/20 Ling Coffman APRN-CNP [address] [place] [address] MANAGED CARE ANALYST Anesthesiology 01/19/24 Car Stower Relationship Specialty Start Date End Date Aileen Corcoran DDS [address] [place] [address] Resident Dentistry 08/20/20 Ling Coffman APRN-CNP [address] [place] [address] MANAGED CARE ANALYST Anesthesiology 01/19/24 Source Comments (unrecognize d section and content) In the event this informatio n is protected by the [facility] Confidentiality of Alcohol and Drug Abuse Patient Records regulations: The Federal rules restrict any use of the information to criminally investigate or prosecute any alcohol or drug abuse patient.[facility] the event this information is protected by the Federal Confidentiality of Alcohol and Drug Abuse Patient Records regulations: The Federal rules restrict any use of the information to criminally investigate or prosecute any alcohol or drug abuse patient.[facility] the event this information is protected by the Federal Confidentiality of Alcohol and Drug Abuse Patient Records regulations: The Federal rules restrict any use of the information to criminally investigate or prosecute any alcohol or drug abuse patient.[facility] the event this information is protected by the Federal Confidentiality of Alcohol and Drug Abuse Patient Records regulations: The Federal rules restrict any use of the information to criminally investigate or prosecute any alcohol or drug abuse patient.[facility] the event this information is protected by the Federal Confidentiality of Alcohol and Drug Abuse Patient Records regulations: The Federal rules restrict any use of the information to criminally investigate or prosecute any alcohol or drug abuse patient.[facility] the event this information is protected by the Federal Confidentiality of Alcohol and Drug Abuse Patient Records regulations: The Federal rules restrict any use of the information to criminally investigate or prosecute any alcohol or drug abuse patient.[facility] the event this information is protected by the Federal Confidentiality of Alcohol and Drug Abuse Patient Records regulations: The Federal rules restrict any use of the information to criminally investigate or prosecute any alcohol or drug abuse patient.[facility] the event this information is protected by the Federal Confidentiality of Alcohol and Drug Abuse Patient Records regulations: The Federal rules restrict any use of the information to criminally investigate or prosecute any alcohol or drug abuse patient.[facility] the event this information is protected by the Federal Confidentiality of Alcohol and Drug Abuse Patient Records regulations: The Federal rules restrict any use of the information to criminally investigate or prosecute any alcohol or drug abuse patient.[facility] the event this information is protected by the Federal Confidentiality of Alcohol and Drug Abuse Patient Records regulations: The Federal rules restrict any use of the information to criminally investigate or prosecute any alcohol or drug abuse patient.[facility] (unrecognized sect ion and content) No Status Records FoundNo Status Records FoundNo Status Records FoundNo Status Records FoundNo Status Records FoundNo Status Records Found INFORMATION SOURCE (unrecogn ized section and content) DATE CREATED AUTHOR 01/26/2023 [facility] DATE CREATED AUTHOR AUTHOR'S ORGANIZ ATION 01/13/2024 [facility] DATE CREATED AUTHOR AUTHOR'S ORGANIZ ATION 02/15/2024 [facility] DATE CREATED AUTHOR AUTHOR'S ORGANIZ ATION 02/22/2024 [facility] DATE CREATED AUTHOR AUTHOR'S ORGANIZ ATION 12/04/2024 [facility] DATE CREATED AUTHOR AUTHOR'S ORGANIZ ATION 12/17/2024 [facility] Scheduled Active and Recently Administ ered [...] Intra-op 1101 (Given - Provid er: Reema Whiting, DDS - Comment: Applied to lips at beginning and end of procedure) chlorhexidine (PERIDEX) 0.12 % oral solution (CANCELED) PRN, Starting on Sun12/28/23 at 1101, Until Sun12/28/23 at 1351, Intra-op 1101 (Given - Provid er: Reema Whiting, DDS - Comment: Peridex mouth swabs throughout procedure) gelatin adsorbable (SURGIFOAM) 12-7 MM sponge (CANCELED) PRN, Starting on Sun12/28/23 at 1246, Until Sun12/28/23 at 1351, Intra-op 1246 (Given - Provid er: Reema Whiting DDS - Comment: Applied to socket sites after extraction) lidocaine-epinephrine (XYLOCAINE) 2 %-1:[id number] injection (CANCELED) PRN, Starting on Sun12/28/23 at [...] BE BASED ON THE PRIMARY CLINICAL RECORDS. [facility]. provides no warranty or guarantee of the accuracy or completeness of information in this document.
[2025-01-01 11:25] LABS: Valproic Acid 107.9 ug/mL (50.0-100.0)
== END 2025-01-01 06:45 | disposition home or self-care (01) ==
LOC: LAB 06:44
PROVIDERS: PCP Family Medicine; Visit Provider Family Medicine
DX: F31.9 Bipolar disorder, unspecified (principal); G40.909 Epilepsy, unspecified, not intractable, without status epilepticus; Z79.899 Other long term (current) drug therapy
CPT/HCPCS: 36415; 80164

== ENCOUNTER 2025-01-08 07:46 | Outpatient (OUT) | payer MEDICARE, MEDICAID, SELFPAY ==
--- OUTSIDE RECORDS SUMMARY | 2025-01-08 07:55 | XMS_ITS | Clinical Summary ---
Author Organization [facility] Address [address] [place] [address] Care Team Providers Care Piecer Up Name Role Phone Aileen Corcoran DDShira Primary Care Provider Allergies Active Allergy Reactions Criticality Noted Date Comments Clarithromycin Other (See Comments) Medium 06/12/2018 Other reaction(s): Other: See Comments Severe abdominal cramps caregiver does not know Medications atorvastatin (LIPITOR) 10 MG tablet 01/22/20 21 Active benztropine (COGENTIN) 0.5 MG tablet Take 1 tablet by mouth 2 times daily Active bisacodyl (DULCOLAX) 10 MG suppository INSERT 1 SUPPOSITORY RECTALLY IF NO BM IN 5 DAYS NEEDED 08/01/20 23 Active Calcium Carb-Cholecalci ferol (OYSTER SHELL CALCIUM W/D) 500-5 MG-MCG TABS tablet 09/13/19 24 Active clomiPRAMINE (ANAFRANIL) 75 MG capsule Take 1 capsule by mouth nightly 04/27/20 22 Active cloNIDine (CATAPRES) 0.2 MG tablet Take 1 tablet by mouth 2 times daily 04/27/20 22 Active PROLIA 60 MG/ML SOSY SC injection INJECT SUBCUTANEOUSLY EVERY 6 MONTHS 08/07/20 23 Active famotidine (PEPCID) 20 MG tablet Take 1 tablet by mouth 2 times daily 04/27/20 22 Active fluticasone (FLONASE) 50 MCG/ACT nasal spray INSTILL 2 SPRAYS PER NOSTRIL EVERY MORNING FOR SINUS CONGESTION 09/04/19 24 Active guanFACINE (TENEX) 1 MG tablet guanfacine 1 mg tablet Active levothyroxine (SYNTHROID) 112 MCG tablet Take 1 tablet by mouth daily 04/27/20 22 Active LINZESS 290 MCG CAPS capsule Take 1 capsule by mouth daily 09/11/19 24 Active lithium 300 MG capsule Take 1 capsule by mouth 3 times daily (with meals) 04/27/20 22 Active LORazepam (ATIVAN) 2 MG tablet Take 1 tablet by mouth every 6 hours as needed. 04/11/20 22 Active metoprolol tartrate (LOPRESSOR) 50 MG tablet TAKE ONE TABLET BY MOUTH TWICE DAILY LOPRESSOR 07/11/20 23 Active naltrexone (DEPADE) 50 MG tablet Take 1 tablet by mouth daily 04/19/20 22 Active QUEtiapine (SEROQUEL) 200 MG tablet Take 1 tablet by mouth 2 times daily 04/27/20 22 Active risperiDONE (RISPERDAL) 3 MG tablet Take 1 tablet by mouth 2 times daily 04/27/20 22 Active sertraline (ZOLOFT) 100 MG tablet Take 1 tablet by mouth daily 04/27/20 22 Active benzonatate (TESSALON) 100 MG capsule Take 1 capsule by mouth 3 times daily as needed Active buPROPion (WELLBUTRIN SR) 100 MG extended release tablet TAKE ONE TABLET BY MOUTH DAILY IN THE MORNING 04/15/20 24 Active divalproex (DEPAKOTE) [address] tablet Take 4 tablets by mouth 2 times daily Active CHEST CONGESTION RELIEF 400 MG tablet Take 1 tablet by mouth 2 times daily 04/15/20 24 Active loratadine (CLARITIN) 10 MG tablet Take 1 tablet by mouth daily Active montelukast (SINGULAIR) 10 MG tablet TAKE ONE TABLET BY MOUTH DAILY SINGULAIR Active mupirocin (BACTROBAN) 2 % ointment Apply 1 Application topically Active ondansetron (ZOFRAN) 4 MG tablet Take 1 tablet by mouth every 8 hours as needed Active polyethylene glycol (MIRALAX) 17 GM/SCOOP POWD powder TAKE 17G WITH LIQUID BY MOUTH DAILY IN THE MORNING 03/26/20 24 Active Active Problems Problem Noted Date Diagnosed Date Bipolar disorder 09/20/2023 Autism 09/20/2023 Sinus bradycardia 09/20/2023 Social History Tobacco Use Types Packs/Day Years Used Date Smoking Tobacco: Never Smokeless Tobacco: Never Tobacco Cessation:Counseling Given: Not Answered Sex and Gender Information Value Date Recorded Sex Assigned at Not on file Legal Sex Male 2:51 PM EST Gender Identity Not on file Sexual Orientation Not on file Last Filed Vital Signs Vital Sign Reading Time Taken Comments Blood Pressure 118/70 04/22/2024 11:53 AM EDT Pulse 60 04/22/2024 11:53 AM EDT Temperature - - Respiratory Rate 16 04/22/2024 11:53 AM EDT Oxygen Saturation 98% 04/22/2024 11:53 AM EDT Inhaled Oxygen Concentration - - Weight 89.8 kg (198 lb) 04/22/2024 11:53 AM EDT Height 167.6 cm (5' 6 ) 04/22/2024 11:53 AM EDT Body Mass Index 31.96 04/22/2024 11:53 AM EDT Plan of Treatment Health Maintenance Due Date Last Done Comments Lipids 2002 Depression Monitoring 2004 Varicella vaccine (1 of 2 - 13+ 2-dose series) 2005 HIV screen 2007 Hepatitis C screen 2010 Hepatitis B vaccine (1 of 3 - 19+ 3-dose series) 2011 Annual Wellness Visit (Medicare) 09/18/2023 COVID-19 Vaccine ( season) 2024 06/06/2023, 06/07/2022, 06/15/2021, Additional history exists Flu vaccine (Season Ended) 03/20/202506/06, 06/07/2022, 06/15/2021, Additional history exists DTaP/Tdap/Td vaccine (2 - Td or Tdap) 07/10/2029 07/10/2019 HPV vaccine Aged Out No longer eligi ble based on patient's age to complete this topic Hepatitis A vaccine Aged Out No longe r eligible based on patient's age to complete this topic Hib vaccine Aged Out No longer eligi ble based on patient's age to complete this topic Meningococcal (ACWY) vaccine Aged Out No longer eligible based on patient's age to complete this topic Meningococcal B vaccine Aged Out No l onger eligible based on patient's age to complete this topic Pneumococcal 0-49 years Vaccine Aged Out No longer eligible based on patient's age to complete this topic Polio vaccine Aged Out No longer elig ible based on patient's age to complete this topic Insurance MEDICARE [place]ICAID [place] Care Teams Piecer Up Relationship Specialty Start Date End Date Aileen Corcoran DDS [address] [facility] [address] PCP - General Dentistry 09/21/23
--- OUTSIDE RECORDS SUMMARY | 2025-01-08 07:55 | XMS_ITS | Clinical Summary ---
Author Organization [facility] Address [address] [place] [id number] Care Team Providers Care Manager Sign Name Role Phone Unavailable Primary Care Provider Unavailabl e Allergies Active Allergy Reactions Criticality Noted Date Comments Clarithromycin Other: See Comments Medium 05/04/2022 caregiver does not know Medications atorvastatin (LIPITOR) 10 mg tablet 2 Active clomiPRAMINE (ANAFRANIL) 75 mg capsule 2 Active famotidine (PEPCID) 20 mg tablet 2 Active fluticasone (FLONASE) 50 mcg/actuation nasal spray INSTILL 2 SPRAYS PER NOSTRIL EVERY MORNING FOR SINUS CONGESTION 2 Active guanFACINE (INTUNIV ER) 4 mg Tb24 Take 4 mg by mouth once daily. 2 Active levothyroxine (SYNTHROID) 112 mcg tablet Take 112 mcg by mouth once daily. 2 Active LINZESS 290 mcg capsule Take 290 mcg by mouth once daily. 2 Active lithium carbonate (ESKALITH) 300 mg capsule Take 300 mg by mouth two times a day. 1999 2 Active LORazepam (ATIVAN) 2 mg tab TAKE ONE TABLET BY MOUTH 3 TIMES DAILY ATIVAN 2 Active MUCUS RELIEF ER 600 mg 12 hr tablet Take 600 mg by mouth twice daily. 2 Active naltrexone (TREXAN) 50 mg tablet Take 50 mg by mouth two times a day. 2 Active OYSTER SHELL CALCIUM-VITAMI N D 500 mg-5 mcg (200 unit) per tablet Take 1 tablet by mouth twice daily. 2 Active polyethylene glycol 3350 (MIRALAX, GLYCOLAX) 17 gram/dose powder Take 17 g by mouth once daily. 2 Active Sennosides 8.6 mg cap Take 8.6 mg by mouth as needed. Active risperiDONE (RISPERDAL) 3 mg tablet Take 3 mg by mouth two times a day. 799, 1999 2 Active sertraline (ZOLOFT) 100 mg tablet Take 50 mg by mouth once daily. Take with 50 mg zoloft in the morning. [address] (DEPAKOTE) 125 mg EC tablet Take 125 mg by mouth two times a day. 1999 Active loratadine 10 mg cap Take 10 mg by mouth daily at bedtime. Active montelukast (SINGULAIR) 10 mg tablet Take 10 mg by mouth daily at bedtime. Active denosumab (PROLIA) 60 mg/mL Inject 60 mg subcutaneously one time only. 3 Active sertraline (ZOLOFT) 50 mg tablet Take 50 mg by mouth once daily. Take with 100mg zoloft in the morning Active QUEtiapine (SEROQUEL) 100 mg tablet Take 1 tablet by mouth two times a day. 60 tablet 4 Active cloNIDine HCl (CATAPRES) 0.2 mg tablet Take 1 tablet by mouth three times a day. 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 Patient unable to answer 10/29/2023 Housing Stability Vital Sign Answer Marquez e Recorded In the last 12 months, was t here a time when you were not able to pay the mortgage or rent on time? Patient unable to answer 10/29/2023 [address] Lived in the Last Year Not on f ile 10/29/2023 In the last 12 months, was t here a time when you did not have a steady place to sleep or slept in a snf (including now)? Patient unable to answer 10/29/2023 Sex and Gender Information Value Date Recorded Sex Assigned at Not on file Legal Sex Male 9:42 AM EDT Gender Identity Not on file Sexual Orientation Not on file Last Filed Vital Signs Vital Sign Reading Time Taken Comments Blood Pressure 111/76 12/03/2023 1:07 PM EDT Pulse 71 12/03/2023 1:07 PM EDT Temperature 36.4 C (97.5 F) 11/28/2023 9:48 AM EDT Respiratory Rate 16 11/07/2023 8:04 AM EDT Oxygen Saturation 97% 11/07/2023 9:39 AM EDT Inhaled Oxygen Concentration - - Weight 92.5 kg (204 lb) 12/03/2023 1:07 PM EDT Height 167.6 cm (5' 6 ) 12/03/2023 1:07 PM EDT Body Mass Index 32.93 12/03/2023 1:07 PM EDT Plan of Treatment Health Maintenance Due Date Last Done Comments Annual PCP Team Chronic Dise ase Visit 2010 Anxiety Screening 2010 Depression Screening 2010 HIV Screening 2010 Hepatitis C Screening 2010 Hepatitis B Vaccine (1 of 3 - 19+ 3-dose series) 2011 Covid-19 Vaccine (2023-2 5 season) 2024 06/06/2023, 06/07/2022, 06/15/2021, Additional history exists Influenza Vaccine (Season Ended) 2025 06/06/2023, 06/07/2022, 06/15/2021, Additional history exists DTaP,Tdap,Td Vaccine (2 - Td or Tdap) 07/10/2029 07/10/[address] [place] [address] MEDICARE [place]ICAID [place]
--- OUTSIDE RECORDS SUMMARY | 2025-01-08 07:59 | XMS_ITS | CCD ---
Author Organization [facility] CliniSyhi Care Team Providers Care Physical Therapist Technician Name Role Phone Jewell MATA, Gallagher Unavailable [...] [employer] Unavailable Jewell MATA, Gallagher Unavailable [phone] HERMAN CRANE Primary Care Physician [phone] Unavailable Primary Care Provider Unavailabl e Unavailable Primary Care Provider Unavailabl e RONALD PHOENIX D Referring Unavailable BESAMUEL MONROY Admitting Unava ilable ELIU GAN Attending Unavailable CHEHROUOSCAR GUPTA Attending Unavailable DANIELVICTORIA Attending Unavailable CRANE, HERMAN Attending Unavailable CRANE, HERMAN Admitting Unavailable CRANE, HERMAN Admitting Unavailable CRANE, HERMAN Attending Unavailable CRANE, HERMAN Attending Unavailable CRANE, HERMAN Admitting Unavailable Markiv CONCRETE PIPE MAKER-LEAD SQL DEVELOPER, Ling Unavailable Unavailable Primary Care Provider Unavailabl [...] Clarithromycin Drug Allergy 05-04-20 Other: See Comments [facility] (20 sources) Clarithromycin; Translations: [CLARITHROMYCIN] Propensity to adverse reactions to drug 06-12-20 18 Other [facility] Work Phone: (9 sources) Clarithromycin Drug Allergy 05-04-20 Other: See Comments [facility] (1 source) Clarithromycin Drug Allergy The [...] mouth Active take 1 capsule by mo [facility] once daily at bedtime loratadine 10 mg [...] 4 mg/0.1 mL nasal liquid Use 1 [place] in one nostril (alternate sides) as needed [...] nausea or vomiting Active polyethylene glycol 3350 26851 mg powder for oral solution (20 sources) [...] 08-25-19 Chronic Other aftercare (5 sources) 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 Valproic Acidon 02-13-2024 Valpro Acid Lvl 98 microgram/mL Normal 50-99 Fish er [facility] Comment on above: Performed By: #### 2 [id number] #### [facility] Laboratory [address] [place] [address] [facility] 01-11-2024 VÍCTORN Telephone (PATRICK) JOHNNY DEVINE ([id number]) 1990 M Date Time Provider Department 01/11/24 CRIS DINH During your visit today, we recorded the following information about you: Cris Dinh, RN 01/11/2024 1:50 PM Signed Jessica from [facility] [place] [place] [phone] is caller. 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 Normal The [facility] [facility] Anesthesia Preprocedure Eval nikolai 12-28-2023 Die Sizer Authentication Interface Message Text ASA: 3 NPO [...] and physical examination. Attestation: MHPATFORM Normal The [facility] [employer] [facility] Anesthesia Transfer Of Careo n 12-28-2023 Die Sizer Authentication Interface Message Text Patient taken to [...] DENTAL RESTORATIONS; Surgeon: Harpreet Mccurdy DDS; Location: [facility]; Service: Dental Allergies: Biaxin [clarithromycin] Basic Operating Room Facts: Surgeon(s): Mari Traore DMD Anesthesiologist: Linda Saldivar MD PAPER SUPERVISOR: Selena Camacho APRN-CRNA DENTAL RESTORATIONS (Bilateral: Mouth) [...] [phone] Comment: The [place] Diabetes Association (ADA) provides guidance for cutoff [...] Standards of Medical Care in Diabetes 2016, [place] Diabetes Association. Diabetes Care. 2016.39(Suppl 1). 8 0.70 8.2 11/06/23 0943 [phone] Comment: The [place] Diabetes Association (ADA) provides guidance for cutoff [...] Standards of Medical Care in Diabetes 2016, [place] Diabetes Association. Diabetes Care. 2016.39(Suppl 1). 6 0.69 8 (more content not included)... Normal The [facility] Blood Attestationon 12-28-19 [employer] Authentication Interface Message Text Blood Attestation: ATTESTATION OF INFORMED CONSENT FOR BLOOD: The transfusion of blood and/or blood components were discussed with the patient and/or legal aircraft sales representative. The risks, benefits and alternatives were reviewed. Questions regarding blood transfusions were answered. The patient /or the patient's legal aircraft sales representative agree with the plan for transfusion of blood and/or blood components. Normal The [facility] [facility] Brief Operative Noteon 12-27 [employer] Authentication Interface Message Text Brief Operative Note PHE OR 3 Johnny Devine 33 year old male Surgical Contact Serial Number: [id number] Preoperative Diagnosis: Pre-op Diagnosis * Caries [K02.9] Moderate intellectual disability [F79] Postoperative Diagnosis: Moderate intellectual disability [F79] Procedures: Comprehensive exam [24216] Full mouth X-ray [ 73370] Extractions [70265] Restorations [65938] Prophy 98728] Fluoride treatment [97583] Surgeon(s): Surgeon(s): Mari Traore DMD Staff: Healthcare Educator Nurse: Henrietta Johnson Anesthesia: General Anesthesia Staff: [...] Whiting DDS 12/28/2023 1;48 pm Normal The [facility] OP Noteon 12-28-2023 Die [employer] Authentication Interface Message Text Surgical Case Number Data Unavailable Operating Room Data Unavailable Preoperative Diagnosis(es): Pre-op Diagnosis * Caries [K02.9] Moderate intellectual disability [F79] Postoperative Diagnosis(es): Moderate intellectual disability[F79] @ENCORD@ Surgeon: Dr. Mari Traore DMD Adjunct Sociology Professor Surgeon: Reema Whiting DDS Anesthesia: General- Nasal [...] 4 mg/0.1 mL nasal liquid Use 1 [place] in one nostril (alternate sides) as needed [...] Whiting DDS 12/28/2023 1:53 pm Normal The [facility] Progress Noteson 12-28-2023 Die Sizer Authentication Interface Message Text Patient takes his seizure medication with pudding, facility held them today for dental surgery. Caregiver brought capsules with them to pre-op. Per Dr. Saldivar, divalproex 125 mg x 4 capsules (500 mg) were opened and sprinkles given to patient with 50 mL of water in pre-op. 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 MB cusp tip was visualized upon extraction of #17, but well encased in bone and would not be exposed to the oral cavity following healing of the extraction site. Preoperative Diagnosis(es): Pre-op Diagnosis * Caries [K02.9] Moderate intellectual disability [F79] Postoperative Diagnosis(es): Moderate intellectual disability[F79] Surgeon: Dr. Mari Traore, ANIYAH Adjunct Sociology Professor Surgeon: Reema Whiting DDS Anesthesia: General- Nasal [...] at end of surgery: Stable Normal The [facility] PAT Appt H DESTINY Hawkins Die [employer] Authentication Interface Message Text Addendum 12/21/2023- Caregiver @ [facility] facility called to relay that patient unable to take medications without pudding. Per Dr. Newell: Instruct them to take the meds at night. Please then coordinate with either the anesthesia team or surgical team to order IV depacon so he can get his depakote. I would have the facility bring his oral depakote for after surgery If they can't get the depacon at [facility] PAT RN updated nursing staff @ [facility]. Normal The [facility] BASIC METABOLIC PANELon 05-0 Anion gap [Moles/Vol] 13 mmol/L Normal 10-20 [facility] Comment on above: Performed By: #### C H8 ####S PATHOLOGY [id number] [place], [place], Calcium [Mass/Vol] 9.9 mg/dL Normal 8.6-10.3 [facility] Comment on above: Performed By: #### C H8 ####S PATHOLOGY [id number] [place], [place], Chloride [Moles/Vol] 106 mmol/L Normal 98-107 [facility] Comment on above: Performed By: #### C H8 ####S PATHOLOGY [id number] [place], [place], CO2 [Moles/Vol] 25 mmol/L Normal 21-31 [facility] Comment on above: Performed By: #### C H8 ####[facility] PATHOLOGY [id number] [place], [place], Creatinine [Mass/Vol] 0.93 mg/dL Normal 0.70-1.30 [facility] Comment on above: Performed By: #### C H8 ####S PATHOLOGY [id number] [place], [place], ESTIMATED GFR (CKD-EPI) 113 mL/min/1.73sqm Normal >=60 [facility] Comment on above: Result Comment: 2020 [...] Inclusion of Race in Diagnosing Kidney Disease. [place]ese Journal of Kidney Diseases 2021;79(2):268-88.e1. 2. N Engl J Med 2020 Vol. 385 Issue 19 Pages 9091-5386 Performed By: #### C H8 ####[facility] PATHOLOGY [id number] [place], [place], Glucose [Mass/Vol] 115 mg/dL High 74-109 [facility] Comment on above: Performed By: #### C H8 ####[facility] PATHOLOGY [id number] [place], [place], Potassium [Moles/Vol] 4.6 mmol/L Normal 3.5-5.0 [facility] [employer] [facility] Comment on above: Performed By: #### C H8 ####S PATHOLOGY [id number] [place], [place], Sodium [Moles/Vol] 139 mmol/L Normal 136-145 [facility] [employer] [facility] Comment on above: Performed By: #### C H8 ####[facility] PATHOLOGY [id number] [place], [place], Urea nitrogen [Mass/Vol] 15 mg/dL Normal 7-25 [facility] [employer] [facility] Comment on above: Performed By: #### C H8 ####[facility] PATHOLOGY [id number] [place], [place], Basic metabolic 2000 panelon 12-19-2023 Anion [...] Inclusion of Race in Diagnosing Kidney Disease. [place]ese Journal of Kidney Diseases 2021;79(2):268-88.e1. 2. N Engl J Med 1 Vol. 385 Issue 19 Pages 6952-0232 Glucose [Mass/Vol] 115 mg/dL High 74 - 109 mg/dL [facility] Interpretation and review of laboratory results Abnormal [facility] Potassium [Moles/Vol] 4.6 mmol/L 3.5 - 5.0 mmol/L [facility] Sodium [Moles/Vol] 139 mmol/L 136 - 145 mmol/L [facility] Urea nitrogen [Mass/Vol] 15 mg/dL 7 - 25 mg/dL [facility] PAT Appt H AND Ross Die Sizer Authentication Interface Message Text Patient was identified by name and date of . Jaswinder Arredondo Patient at risk for falls:No Falls Risk protocol implemented: N/A Normal [facility] [employer] [facility] [facility] Patient Instructionson 12-18 Die Sizer Authentication Interface Message Text [facility] staff: Since patient is unable to take [...] for pain. Please hold all Vitamin E, White 3, fish oil and herbal supplements for 1 week prior to surgery. Please use this LIST to prepare for your surgery/procedure: ? Assume that any lab or testing done during your Pre-admission testing appointment is within normal limits unless otherwise contacted. ? Expect a call from [facility] one business day prior to surgery for [...] your Preparing for Your Surgery/Procedure booklet or [email or web address] if you have questions. Contact the Pre-Admission Testing department at [phone] or your surgeon's office with any questions [...] stay with you after surgery. Please call [employer] if you need transportation assistance or have concerns about going home [phone]. ? SLEEP APNEA PATIENTS: Bring your sleep apnea machine and mask. ? PLEASE BE ON TIME. A late arrival may result in the cancellation/ delay of your surgery. 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] Obesity, Class I, BMI 30-34.9 [E66.9] 11/02/2023 S/P laparoscopy [Z98.890] 11/05/2023 Acute postoperative pain [G89.18] 11/05/2023 Oropharyngeal dysphagia [R13.12] 11/06/2023 Epilepsy ([facility]) [G40.909] 11/06/2023 Level of Service: OFFICE/OUTPATIENT EST PT MAY NOT REQ PHYS/QHP [80150] LOS History for Encounter Encounter Status:Closed by OSCAR RUIZ on 12/03/23 [facility] Teresita 11-28-2023 CNOV Office Visit (CORTEZ ) JOHNNY DEVINE ([id number]) 1990 M Date Time Provider Department 11/28/23 [...] APRN.CNP 11/28/2023 10:19 AM Signed [facility] Clinic Date: November 28, 2023 Johnny Devine 33 year old male CHIEF COMPLAINT: Patient presents for follow up from surgery. HPI: Here for follow up after diagnostic laparotomy on 10/29/[address] Robin. Patient also underwent a dorsal slit procedure with urology on 10/30/2023 for paraphimosis. Patient with a bait digger today to discuss his postoperative course since [...] ICD10: Z48.89 (more content not included)... [facility] C[facility] Telephone (EcwidN) JOHNNY DEVINE ([id number]) 1990 [place] Date Time Provider Department 11/12/23 [...] MD - Fully Assessed Reason for Visit: [employer] - Other [8042] Prescriptions as of 11/12/2023 - cloNIDine HCl [...] 11/12/2023 Noted Resolved SBO (small bowel obstruction) ([facility]) [K56.609] 10/28/2023 10/31/2023 Bipolar disorder ([facility]) [F31.9] 09/16/2018 Hypothyroidism [E03.9] 09/16/2018 Obsessive-compulsive disorder [F42.9] 09/16/2018 Moderate intellectual disability [F71] 09/16/2018 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] Obesity, Class I, BMI 30-34.9 [E66.9] 11/02/2023 S/P laparoscopy [Z98.890] 11/05/2023 Acute postoperative pain [G89.18] 11/05/2023 Oropharyngeal dysphagia [R13.12] 11/06/2023 Epilepsy ([facility]) [G40.909] 11/06/2023 Encounter Status:Closed by CRIS DINH on 11/12/23 Normal [facility] Basic metabolic 2000 panelon 11-07-2023 Anion gap [Moles/Vol] 10 mmol/L Normal 9-18 [facility] Comment on above: Order Comment: Speci men Type: BLOOD SPECIMEN Ordering Facility: [facility] Address: [address] [place] [address] Performed By: #### 2 4321-2, 29071-6, 2777- #### [facility] CLIA [id number] [address] [place] [address] [place] Calcium [Mass/Vol] 8.2 mg/dL Low 8.5-10.2 [facility] Comment on above: Order Comment: Speci men Type: BLOOD SPECIMEN Ordering Facility: [facility] Address: [address] [place] [address] Performed By: #### 2 4321-2, 44158-3, 2777-1 #### [facility] CLIA [id number] [address] [place] [address] [place] Chloride [Moles/Vol] 110 mmol/L High 97-105 [facility] Comment on above: Order Comment: Speci men Type: BLOOD SPECIMEN Ordering Facility: [facility] Address: [address] [place] [address] Performed By: #### 2 4321-2, 64609-5, 2777-1 #### [facility] CLIA [id number] [address] [place] [address] [place] CO2 [Moles/Vol] 21 mmol/L Low 22-30 [facility] Comment on above: Order Comment: Speci men Type: BLOOD SPECIMEN Ordering Facility: [facility] Address: [address] [place] [address] Performed By: #### 2 4321-2, 96653-8, 2777-1 #### [facility] CLIA [id number] [address] [place] [address] [place] Creatinine [Mass/Vol] 0.70 mg/dL Low 0.73-1.22 [facility] Comment on above: Order Comment: Speci men Type: BLOOD SPECIMEN Ordering Facility: [facility] Address: [address] [place] [address] Performed By: #### 2 4321-2, 89013-9, 2777-1 #### [facility] CLIA [id number] [address] [place] [address] [place] Creatinine and Glomerular filtration rate.predicted panel (S/P/Bld) 126 mL/min/1.73m??? Normal >=60 [facility] Comment on above: Order Comment: Speci men Type: BLOOD SPECIMEN Ordering Facility: [facility] Address: [address] [place] [address] Result Comment: Lor mated Glomerular Filtration Rate [...] By: #### 2 4321-2, , 2776-08 #### [facility] CLIA [id number] [address] [place] [id number] [place] Glucose [Mass/Vol] 91 mg/dL Normal 74-99 [facility] Comment on above: Order Comment: Sana zuñiga Type: BLOOD SPECIMEN Ordering Facility: [facility] Address: [address] [place] [address] Result Comment: The [place] Diabetes Association (ADA) provides guidance for cutoff [...] Standards of Medical Care in Diabetes 2016, [place] Diabetes Association. Diabetes Care. 2016.39(Suppl 1). Performed By: #### 2 1-2, , 2776-08 #### [facility] CLIA [id number] [address] [place], [place] [address] [place] Potassium [Moles/Vol] 4.4 mmol/L Normal 3.7-5.1 [facility] Comment on above: Order Comment: Sana zuñiga Type: BLOOD SPECIMEN Ordering Facility: [facility] Address: [address] [place] [address] Performed By: #### 2 4321-2, , 2776-08 #### [facility] CLIA [id number] [address] [place] Sodium [Moles/Vol] 141 mmol/L Normal 136-144 [facility] Comment on above: Order Comment: Speci men Type: BLOOD SPECIMEN Ordering Facility: [facility] Address: [address] [place] [address] Performed By: #### 2 4321-2, 00113-0, 27702-17 #### [facility] CLIA [id number] [address] [place] [address] [place] Urea nitrogen [Mass/Vol] 8 mg/dL Low 9-24 [facility] Comment on above: Order Comment: Speci men Type: BLOOD SPECIMEN Ordering Facility: [facility] Address: [address] [place] [address] Performed By: #### 2 4321-2, , 2776-08 #### [facility] CLIA [id number] [address] [place] [address] [place] CBC panel Auto (Bld)on 11-06 Erythrocyte distribution width (RBC) [Ratio] 15.1 % High 11.5-15.0 [facility] Comment on above: Order Comment: Speci men Type: BLOOD SPECIMENOrdering Facility: [facility] Address: [address] [place] [address] Performed By: #### 5 8410-2 ####[facility] [id number] [place] [address] [place] Hematocrit (Bld) [Volume fraction] 31.4 % Low 39.0-51.0 [facility] Comment on above: Order Comment: Speci men Type: BLOOD SPECIMENOrdering Facility: [facility] Address: [address] [place] [address] Performed By: #### 5 8410-2 ####[facility] [id number] [place] [address] [place] Hemoglobin (Bld) [Mass/Vol] 9.9 g/dL Low 13.0-17.0 [facility] Comment on above: Order Comment: Speci men Type: BLOOD SPECIMENOrdering Facility: [facility] Address: [address] [place] [address] Performed By: #### 5 8410-2 ####[facility] [id number] [place] [address] [place] MCH (RBC) [Entitic mass] 27.3 pg Normal 26.0-34.0 [facility] Comment on above: Order Comment: Speci men Type: BLOOD SPECIMENOrdering Facility: [facility] Address: [address] [place] [address] Performed By: #### 5 8410-2 ####[facility] [id number] [place] [address] [place] MCHC (RBC) [Mass/Vol] 31.5 g/dL Normal 30.5-36.0 [facility] Comment on above: Order Comment: Speci men Type: BLOOD SPECIMENOrdering Facility: [facility] Address: [address] [place] [address] Performed By: #### 5 8410-2 ####[facility] [id number] [place] [address] [place] MCV (RBC) [Entitic vol] 86.5 fL Normal 80.0-100.0 [facility] Comment on above: Order Comment: Speci men Type: BLOOD SPECIMENOrdering Facility: [facility] Address: [address] [place] [address] Performed By: #### 5 8410-2 ####[facility] [id number] [place] [address] [place] Nucleated RBC (Bld) [#/Vol] 10*3/uL Normal <0.01 [facility] Comment on above: Order Comment: Speci men Type: BLOOD SPECIMENOrdering Facility: [facility] Address: [address] [place] [address] Performed By: #### 5 8410-2 ####[facility] [id number] [place] [address] [place] Platelet mean volume (Bld) [Entitic vol] 9.4 fL Normal 9.0-12.7 [facility] Comment on above: Order Comment: Speci men Type: BLOOD SPECIMENOrdering Facility: [facility] Address: [address] [place] [address] Performed By: #### 5 8410-2 ####[facility] [id number] [place] [address] [place] Platelets (Bld) [#/Vol] 215 10*3/uL Normal 150-400 [facility] Comment on above: Order Comment: Speci men Type: BLOOD SPECIMENOrdering Facility: [facility] Address: [address] [place] [address] Performed By: #### 5 8410-2 ####[facility] [id number] [place] [address] [place] RBC (Bld) [#/Vol] 3.63 10*6/uL Low 4.20-6.00 [facility] Comment on above: Order Comment: Speci men Type: BLOOD SPECIMENOrdering Facility: [facility] Address: [address] [place] [address] Performed By: #### 5 8410-2 ####[facility] [id number] [place] [address] [place] WBC (Bld) [#/Vol] 8.67 10*3/uL Normal 3.70-11.00 [facility] Comment on above: Order Comment: Speci men Type: BLOOD SPECIMENOrdering Facility: [facility] Address: [address] [place] [address] Performed By: #### 5 8410-2 ####[facility] [id number] [place] [address] [place] CNCOon 11-07-2023 CNCO Letter Text Normal [facility] CNDSon 11-07-2023 CNDS HNO ID: [id number] Author: SAMUEL ROBIN MD Service: General Surgery [...] PSH who presents as a transfer to [facility] from [facility] ED for further management of small bowel obstruction. Given patient's baseline cognitive status, NGT difficult to maintain. He was admitted to the [facility] under care of general surgery and was taken to the OR the following morning for diagnostic laparoscopy. Intra-operative findings demonstrated no adhesins, no apparent hernias, dilated small/large bowel, redundant sigmoid c/f volvulus, easily reduced. After recovering in the PACU, he was taken to the [facility] with NGT in place. Patient arrived to [facility] with 8 Fr pediatric haskins catheter in [...] in home regimen. Stable for discharge to long-term. Neurology Recommendations on Discharge: - Discharge on anti-epileptic medications as prescribed - Please schedule outpatient follow-up with epilepsy - Please order outpatient MRI without contrast (3T epilepsy protocol) to be done prior to epilepsy appointment Active Hospital Problems Diagnosis Date Noted Oropharyngeal dysphagia 11/06/2023 Epilepsy ([facility]) 11/06/2023 S/P laparoscopy 11/05/2023 Acute postoperative pain 11/05/2023 Obesity, Class I, BMI 30-34.9 11/02/2023 Developmental non-verbal disorder Obsessive-compulsive disorder 09/16/2018 Moderate intellectual disability 09/16/2018 Hypothyroidism 09/16/2018 Bipolar disorder ([facility]) 09/16/2018 Resolved Hospital Problems Diagnosis Date Noted Date Resolved SBO (small bowel obstruction) ([facility]) 10/28/2023 10/31/2023 Transitions of Care Critical Issues: Follow up with Dr. Fairbanks MRI as outpatient and follow up with Neurology in 2 weeks LABS AND PROCEDURES PENDING AT DISCHARGE: No pending results. CONSULTING TEAMS DURING HOSPIT (more content not included)... Normal [facility] CONSULT PROGon 11-07-2023 CONSULT PROG HNO ID: [id number] Author: BRUCE RESENDIZ MD Service: Neurology General [...] November 06, 2023 TIME: 8:36 AM Normal [facility] Magnesium SerPl-mCncon 11-06 Magnesium [Mass/Vol] 2.1 mg/dL Normal 1.7-2.3 [facility] Comment on above: Order Comment: Speci men Type: BLOOD SPECIMEN Ordering Facility: [facility] Address: [address] [place] [address] Performed By: #### 2 4321-2, 51669-6, 2777-1 #### [facility] CLIA [id number] [address] [place] [address] [place] NURSING PROGon 11-07-2023 NURSING PROG HNO ID: [id number] Author: MAYANK READ, RN Service: Nursing Author Type: Registered Nurse Type: Nursing Progress Note Filed: 11/07/2023 14:53 Note Text: Pt is discharged to a long-term, excavating supervisor Magi just arrived to lease picker. Reviewed discharge paper works and handed it to the excavating supervisor. IV removed, pt tolerated. EEG removed by elevator service technician. Normal [facility] NUTRITIONon 11-07-2023 NUTRITION HNO ID: [id number] Author: RAFAELA COOL DTR Service: Nutrition Therapy Author Type: Health And Safety Trainer Type: Nutrition Filed: 11/07/2023 13:38 Note Text: NUTRITION THERAPY BUSINESS RESILIENCY MANAGER NOTE SERVICE DATE: 11/07/2023 SERVICE TIME: 999 [...] November 07, 2023 TIME: 1:38 PM Normal [facility] Phosphate SerPl-mCncon 11-06 Phosphate [Mass/Vol] 4.1 mg/dL Normal 2.7-4.8 [facility] Comment on above: Order Comment: Speci men Type: BLOOD SPECIMEN Ordering Facility: [facility] Address: [address] [place] [address] Performed By: #### 2 4321-2, , 2776-08 #### [facility] CLIA [id number] [address] [place] [address] [place] Basic metabolic 2000 panelon 11-06-2023 Anion gap [Moles/Vol] 16 mmol/L Normal 9-18 [facility] Comment on above: Order Comment: Speci men Type: BLOOD SPECIMEN Ordering Facility: [facility] Address: [address] [place] [address] Performed By: #### 2 4321-2, , 2776-08 #### [facility] CLIA [id number] [address] [place] [address] [place] Calcium [Mass/Vol] 8.9 mg/dL Normal 8.5-10.2 [facility] Comment on above: Order Comment: Speci men Type: BLOOD SPECIMEN Ordering Facility: [facility] Address: [address] [place] [address] Performed By: #### 2 4321-2, 99813-7, 2776- #### [facility] CLIA [id number] [address] [place] [address] [place] Chloride [Moles/Vol] 112 mmol/L High 97-105 [facility] Comment on above: Order Comment: Speci men Type: BLOOD SPECIMEN Ordering Facility: [facility] Address: [address] [place] [address] Performed By: #### 2 4321-2, 12868-5, 2777-1 #### [facility] CLIA [id number] [address] [place] [address] [place] CO2 [Moles/Vol] 18 mmol/L Low 22-30 [facility] Comment on above: Order Comment: Speci men Type: BLOOD SPECIMEN Ordering Facility: [facility] Address: [address] [place] [address] Performed By: #### 2 4321-2, 70914-9, 2777-1 #### [facility] CLIA [id number] [address] [place] [address] [place] Creatinine [Mass/Vol] 0.69 mg/dL Low 0.73-1.22 [facility] Comment on above: Order Comment: Speci men Type: BLOOD SPECIMEN Ordering Facility: [facility] Address: [address] [place] [address] Performed By: #### 2 4321-2, 29591-8, 2777-1 #### [facility] CLIA [id number] [address] [place] [address] [place] Creatinine and Glomerular filtration rate.predicted panel (S/P/Bld) 127 mL/min/1.73m??? Normal >=60 [facility] Comment on above: Order Comment: Speci men Type: BLOOD SPECIMEN Ordering Facility: [facility] Address: [address] [place] [address] Result Comment: Lor mated Glomerular Filtration Rate [...] By: #### 2 4321-2, , 2776-08 #### [facility] CLIA [id number] [address] [address] [place] Glucose [Mass/Vol] 83 mg/dL Normal 74-99 [facility] Comment on above: Order Comment: Sana zuñiga Type: BLOOD SPECIMEN Ordering Facility: [facility] Address: [address] [place] [address] Result Comment: The [place] [employer] (ADA) provides guidance for cutoff [...] Standards of Medical Care in Diabetes 2016, [place] [employer]. Diabetes Care. 2016.39(Suppl 1). Performed By: #### 2 4321-2, , 2776-08 #### [facility] CLIA [id number] [facility] [place] [id number] [place] Potassium [Moles/Vol] 4.9 mmol/L Normal 3.7-5.1 [facility] Comment on above: Order Comment: Sana zuñiga Type: BLOOD SPECIMEN Ordering Facility: [facility] Address: [address] [place] [address] Performed By: #### 2 4321-2, , 2776-08 #### [facility] CLIA [id number] [address] [address] [place] Sodium [Moles/Vol] 146 mmol/L High 136-144 [facility] Comment on above: Order Comment: Speci men Type: BLOOD SPECIMEN Ordering Facility: [facility] Address: [address] [place] [address] Performed By: #### 2 4321-2, , 2776-08 #### [facility] CLIA [id number] [address] [place] [address] [place] Urea nitrogen [Mass/Vol] 6 mg/dL Low 9-24 [facility] Comment on above: Order Comment: Speci men Type: BLOOD SPECIMEN Ordering Facility: [facility] Address: [address] [place] [address] Performed By: #### 2 4321-2, , 2776-08 #### [facility] CLIA [id number] [address] [place] [address] [place] CBC panel Auto (Bld)on 11-05 Erythrocyte distribution width (RBC) [Ratio] 14.8 % Normal 11.5-15.0 [facility] Comment on above: Order Comment: Speci men Type: BLOOD SPECIMEN Ordering Facility: [facility] Address: [address] [place] [address] Performed By: #### 2 777-1, , #### [facility] CLIA [id number] [address] [place] [address] [place] Hematocrit (Bld) [Volume fraction] 31.3 % Low 39.0-51.0 [facility] Comment on above: Order Comment: Speci men Type: BLOOD SPECIMEN Ordering Facility: [facility] Address: [address] [place] [address] Performed By: #### 2 777-1, , #### [facility] CLIA [id number] [address] [place] [address] [place] Hemoglobin (Bld) [Mass/Vol] 9.8 g/dL Low 13.0-17.0 [facility] Comment on above: Order Comment: Speci men Type: BLOOD SPECIMEN Ordering Facility: [facility] Address: [address] [place] [address] Performed By: #### 2 777-1, 97939-6, #### [facility] CLIA [id number] [address] [place] [address] [place] MCH (RBC) [Entitic mass] 26.4 pg Normal 26.0-34.0 [facility] Comment on above: Order Comment: Speci men Type: BLOOD SPECIMEN Ordering Facility: [facility] Address: [address] [place] [address] Performed By: #### 2 777-1, 22076-4, #### [facility] CLIA [id number] [address] [place] [address] [place] MCHC (RBC) [Mass/Vol] 31.3 g/dL Normal 30.5-36.0 [facility] Comment on above: Order Comment: Speci men Type: BLOOD SPECIMEN Ordering Facility: [facility] Address: [address] [place] [address] Performed By: #### 2 777-1, , #### [facility] CLIA [id number] [address] [place] [address] [place] MCV (RBC) [Entitic vol] 84.4 fL Normal 80.0-100.0 [facility] Comment on above: Order Comment: Speci men Type: BLOOD SPECIMEN Ordering Facility: [facility] Address: [address] [place] [address] Performed By: #### 2 777-1, 42353-9, #### [facility] CLIA [id number] [address] [place] [address] [place] Nucleated RBC (Bld) [#/Vol] 10*3/uL Normal <0.01 [facility] Comment on above: Order Comment: Speci men Type: BLOOD SPECIMEN Ordering Facility: [facility] Address: [address] [place] [address] Performed By: #### 2 777-1, 99900-9, #### [facility] CLIA [id number] [address] [place] [address] [place] Platelet mean volume (Bld) [Entitic vol] 8.9 fL Low 9.0-12.7 [facility] Comment on above: Order Comment: Speci men Type: BLOOD SPECIMEN Ordering Facility: [facility] Address: [address] [place] [address] Performed By: #### 2 777-1, 71241-4, #### [facility] CLIA [id number] [address] [place] [address] [place] Platelets (Bld) [#/Vol] 244 10*3/uL Normal 150-400 [facility] Comment on above: Order Comment: Speci men Type: BLOOD SPECIMEN Ordering Facility: [facility] Address: [address] [place] [address] Performed By: #### 2 777-1, 80726-1, #### [facility] CLIA [id number] [address] [place] [address] [place] RBC (Bld) [#/Vol] 3.71 10*6/uL Low 4.20-6.00 [facility] Comment on above: Order Comment: Speci men Type: BLOOD SPECIMEN Ordering Facility: [facility] Address: [address] [place] [address] Performed By: #### 2 777-1, 16493-6, #### [facility] CLIA [id number] [address] [place] [address] [place] WBC (Bld) [#/Vol] 7.59 10*3/uL Normal 3.70-11.00 [facility] Comment on above: Order Comment: Speci men Type: BLOOD SPECIMEN Ordering Facility: [facility] Address: [address] [place] [address] Performed By: #### 2 777-1, 95133-2, 60809-9 #### [facility] CLIA [id number] [address] [place] [address] [id number] [place] [address] [place] CONSULT PROGon 11-06-2023 CONSULT PROG HNO ID: [id number] Author: KIM BHAKTA MD Service: Neurology General [...] for now. Kim Bhakta MD Staff Neurologist [facility] Multiple Sclerosis Normal [facility] Magnesium [facility] 11-05 Magnesium [Mass/Vol] 2.3 mg/dL Normal 1.7-2.3 [facility] Comment on above: Order Comment: Speci men Type: BLOOD SPECIMEN Ordering Facility: [facility] Address: [address] [place] [address] Performed By: #### 2 4321-2, 69561-2, 7- #### [facility] CLIA [id number] [address] [place] [address] [place] Phosphate [facility]-nc 11-05 Phosphate [Mass/Vol] 4.1 mg/dL Normal 2.7-4.8 [facility] Comment on above: Order Comment: Speci men Type: BLOOD SPECIMEN Ordering Facility: [facility] Address: [address] [place] [address] Performed By: #### 2 4321-2, 70734-5, 2777 #### [facility] CLIA [id number] [address] [place] [address] [place] THERAPY NTon 11-06-2023 THERAPY NT HNO ID: [id number] Author: CHANTELL BELLA [employer] Service: Speech/Swallow Author Type: Speech Language Pathologist Type: Therapy (PT/OT/Speech/Resp) Filed: 11/06/2023 10:28 Note Text: [facility] Speech Pathology - [facility] Bedside Swallow Evaluation SERVICE DATE: 11/06/2023 ROOM: [place] [address] IMPRESSIONS: Limited bedside swallowing evaluation as patient [...] assessment. PLAN: Page with concerns/questions. Chantell Bella [facility]-[employer] [employer] Pager # [phone] BRIEF DIAGNOSIS AND HISTORY per General Surgery [...] discussed with: MIRIAM adkins SIGNATURE: Chantell Bella [facility]-[employer] PATIENT NAME: Johnny Devine DATE: November 06, 2023 TIME: 10:12 AM PAGER: [phone] Normal [facility] Basic metabolic 2000 panelon 11-05-2023 Anion gap [Moles/Vol] 7 mmol/L Low -18 [facility] Comment on above: Order Comment: Speci men Type: BLOOD SPECIMEN Ordering Facility: [facility] Address: [address] [place] [address] Performed By: #### 5 7021-8 #### [facility] CLIA [id number] [address] [place] [address] [place] Calcium [Mass/Vol] 7.6 mg/dL Low 8.5-10.2 [facility] Comment on above: Order Comment: Speci men Type: BLOOD SPECIMEN Ordering Facility: [facility] Address: [address] [place] [address] Performed By: #### 5 7021-8 #### [facility] CLIA [id number] [address] [place] [address] [place] Chloride [Moles/Vol] 112 mmol/L High 97-105 [facility] Comment on above: Order Comment: Speci men Type: BLOOD SPECIMEN Ordering Facility: [facility] Address: [address] [place] [address] Performed By: #### 5 7021-8 #### [facility] CLIA [id number] [address] [place] [address] [place] CO2 [Moles/Vol] 23 mmol/L Normal 22-30 [facility] Comment on above: Order Comment: Speci men Type: BLOOD SPECIMEN Ordering Facility: [facility] Address: [address] [place] [address] Performed By: #### 5 7021-8 #### [facility] CLIA [id number] [address] [place] [address] [place] Creatinine [Mass/Vol] 0.64 mg/dL Low 0.73-1.22 [facility] Comment on above: Order Comment: Speci men Type: BLOOD SPECIMEN Ordering Facility: [facility] Address: [address] [place] [address] Performed By: #### 5 7021-8 #### [facility] CLIA [id number] [address] [place] [address] [place] Creatinine and Glomerular filtration rate.predicted panel (S/P/Bld) 130 mL/min/1.73m??? Normal >=60 [facility] Comment on above: Order Comment: Speci men Type: BLOOD SPECIMEN Ordering Facility: [facility] Address: [address] [place] [address] Result Comment: Lor mated Glomerular Filtration Rate [...] GFR. Performed By: #### 5 7021-8 #### [facility] CLIA [id number] [address] [place] [address] [place] Glucose [Mass/Vol] 96 mg/dL Normal 74-99 [facility] Comment on above: Order Comment: Speci men Type: BLOOD SPECIMEN Ordering Facility: [facility] Address: [address] [place] [address] Result Comment: The [place] [employer] (ADA) provides guidance for cutoff [...] Standards of Medical Care in Diabetes 2016, [place] [employer]. Diabetes Care. 2016.39(Suppl 1). Performed By: #### 5 7021-8 #### [facility] CLIA [id number] [address] [place] [address] [place] Potassium [Moles/Vol] 4.2 mmol/L Normal 3.7-5.1 [facility] Comment on above: Order Comment: Akbari men Type: BLOOD SPECIMEN Ordering Facility: [facility] Address: [address] [place] [address] Performed By: #### 5 7021-8 #### [facility] CLIA [id number] [address] [place] [address] [place] Sodium [Moles/Vol] 142 mmol/L Normal 136-144 [facility] Comment on above: Order Comment: Speci men Type: BLOOD SPECIMEN Ordering Facility: [facility] Address: [address] [place] [address] Performed By: #### 5 7021-8 #### [facility] CLIA [id number] [address] [place] [address] [place] Urea nitrogen [Mass/Vol] 5 mg/dL Low 9-24 [facility] Comment on above: Order Comment: Speci men Type: BLOOD SPECIMEN Ordering Facility: [facility] Address: [address] [place] [address] Performed By: #### 5 7021-8 #### [facility] CLIA [id number] [address] [place] [address] [place] CBC panel Auto (Bld)on 11-04 Erythrocyte distribution width (RBC) [Ratio] 14.6 % Normal 11.5-15.0 [facility] Comment on above: Order Comment: Speci men Type: BLOOD SPECIMENOrdering Facility: [facility] Address: [address] [place] [address] Performed By: #### 5 8410-2 ####[facility] [id number] [place] [address] [place] Hematocrit (Bld) [Volume fraction] 30.8 % Low 39.0-51.0 [facility] Comment on above: Order Comment: Speci men Type: BLOOD SPECIMENOrdering Facility: [facility] Address: [address] [place] [address] Performed By: #### 5 8410-2 ####[facility] [id number] [place] [address] [place] Hemoglobin (Bld) [Mass/Vol] 9.7 g/dL Low 13.0-17.0 [facility] Comment on above: Order Comment: Speci men Type: BLOOD SPECIMENOrdering Facility: [facility] Address: [address] [place] [address] Performed By: #### 5 8410-2 ####[facility] [id number] [place] [address] [place] MCH (RBC) [Entitic mass] 26.5 pg Normal 26.0-34.0 [facility] Comment on above: Order Comment: Speci men Type: BLOOD SPECIMENOrdering Facility: [facility] Address: [address] [place], [place] [address] Performed By: #### 5 8410-2 ####[facility] [id number] [place] [address] [place] MCHC (RBC) [Mass/Vol] 31.5 g/dL Normal 30.5-36.0 [facility] Comment on above: Order Comment: Speci men Type: BLOOD SPECIMENOrdering Facility: [facility] Address: [address] [place] [address] Performed By: #### 5 8410-2 ####[facility] [id number] [place] [address] [place] MCV (RBC) [Entitic vol] 84.2 fL Normal 80.0-100.0 [facility] Comment on above: Order Comment: Speci men Type: BLOOD SPECIMENOrdering Facility: [facility] Address: [address] [place] [address] Performed By: #### 5 8410-2 ####[facility] [id number] [place] [address] [place] Nucleated RBC (Bld) [#/Vol] 10*3/uL Normal <0.01 [facility] Comment on above: Order Comment: Speci men Type: BLOOD SPECIMENOrdering Facility: [facility] Address: [address] [place] [address] Performed By: #### 5 8410-2 ####[facility] [id number] [place] [address] [place] Platelet mean volume (Bld) [Entitic vol] 9.1 fL Normal 9.0-12.7 [facility] Comment on above: Order Comment: Speci men Type: BLOOD SPECIMENOrdering Facility: [facility] Address: [address] [place] [address] Performed By: #### 5 8410-2 ####[facility] [id number] [place] [address] [place] Platelets (Bld) [#/Vol] 205 10*3/uL Normal 150-400 [facility] Comment on above: Order Comment: Speci men Type: BLOOD SPECIMENOrdering Facility: [facility] Address: [address] [place] [address] Performed By: #### 5 8410-2 ####[facility] [id number] [place] [address] [place] RBC (Bld) [#/Vol] 3.66 10*6/uL Low 4.20-6.00 [facility] Comment on above: Order Comment: Speci men Type: BLOOD SPECIMENOrdering Facility: [facility] Address: [address] [place] [address] Performed By: #### 5 8410-2 ####[facility] [id number] [place] [address] [place] WBC (Bld) [#/Vol] 7.54 10*3/uL Normal 3.70-11.00 [facility] Comment on above: Order Comment: Speci men Type: BLOOD SPECIMENOrdering Facility: [facility] Address: [address] [place] [address] Performed By: #### 5 8410-2 ####[facility] [id number] [place] [address] [place] Magnesium SerPl-mCncon 11-04 Magnesium [Mass/Vol] 2.0 mg/dL Normal 1.7-2.3 [facility] Comment on above: Order Comment: Speci men Type: BLOOD SPECIMEN Ordering Facility: [facility] Address: [address] [place] [address] Performed By: #### 5 7021-8 #### [facility] CLIA [id number] [address] [place] [address] [place] Phosphate SerPl-mCncon 11-04 Phosphate [Mass/Vol] 3.1 mg/dL Normal 2.7-4.8 [facility] Comment on above: Order Comment: Speci men Type: BLOOD SPECIMEN Ordering Facility: [facility] Address: [address] [place] [address] Performed By: #### 5 7021-8 #### [facility] CLIA [id number] [address] [place] [address] THERAPY NTon 11-05-2023 THERAPY NT HNO ID: [id number] Author: ANA LUISA MORALES, PT Service: ? Author Type: Physical Therapist Type: Therapy (PT/OT/Speech/Resp) Filed: 11/05/2023 15:46 Note Text: Physical Therapy Evaluation Summary SERVICE DATE: 11/05/2023 SERVICE TIME: 1459 to 1532 ROOM: [place] [address] PT 6 Clicks Score: 18 DISCHARGE RECOMMENDATIONS Home Recommended Discharge Disposition Comments: Anticipate patient will continue to progress in mobility. Anticipate return to long-term as long as able to provide current [...] session to obtain PLOF. Patient lives at long-term. I with mobility. Can feed himself and [...] and mobility-other TREATMENT INTERVENTIONS Evaluation, Therapeutic Activity (83875) Timed Code Treatment (minutes): 18 Skilled Treatment [...] Type: Stepping Bed To Chair Transfer Equipment: (TOP LIFT SCOURER) frequent verbal cues Gait Contact Guard Assistance [...] November 05, 2023 TIME: 3:46 PM Normal [facility] Basic metabolic 2000 panelon 11-04-2023 Anion gap [Moles/Vol] 9 mmol/L Normal 9-18 [facility] Comment on above: Order Comment: Speci men Type: BLOOD SPECIMEN Ordering Facility: [facility] Address: [address] [place] [address] Performed By: #### 2 777-1, 67905-2, #### [facility] CLIA [id number] [address] [place] [address] [place] Calcium [Mass/Vol] 7.7 mg/dL Low 8.5-10.2 [facility] Comment on above: Order Comment: Speci men Type: BLOOD SPECIMEN Ordering Facility: [facility] Address: [address] [place] [address] Performed By: #### 2 777-1, 04049-9, #### [facility] CLIA [id number] [address] [place] [address] [place] Chloride [Moles/Vol] 112 mmol/L High 97-105 [facility] Comment on above: Order Comment: Speci men Type: BLOOD SPECIMEN Ordering Facility: [facility] Address: [address] [place] [address] Performed By: #### 2 777-1, 56961-1, #### [facility] CLIA [id number] [address] [place] [address] [place] CO2 [Moles/Vol] 24 mmol/L Normal 22-30 [facility] Comment on above: Order Comment: Speci men Type: BLOOD SPECIMEN Ordering Facility: [facility] Address: [address] [place] [address] Performed By: #### 2 777-1, 83857-9, #### [facility] CLIA [id number] [address] [place] [address] [place] Creatinine [Mass/Vol] 0.70 mg/dL Low 0.73-1.22 [facility] Comment on above: Order Comment: Sana zuñiga Type: BLOOD SPECIMEN Ordering Facility: [facility] Address: [address] [place] [address] Performed By: #### 2 777-1, 17374-2, #### [facility] CLIA [id number] [address] [place] [address] [place] Creatinine and Glomerular filtration rate.predicted panel (S/P/Bld) 126 mL/min/1.73m??? Normal >=60 [facility] Comment on above: Order Comment: Sana zuñiga Type: BLOOD SPECIMEN Ordering Facility: [facility] Address: [address] [place] [address] Result Comment: Lor mated Glomerular Filtration Rate [...] actual GFR. Performed By: #### 2 777-1, 75805-5, #### [facility] CLIA [id number] [address] [place] [address] [place] Glucose [Mass/Vol] 79 mg/dL Normal 74-99 [facility] Comment on above: Order Comment: Sana zuñiga Type: BLOOD SPECIMEN Ordering Facility: [facility] Address: [address] [place] [address] Result Comment: The [place] [employer] (ADA) provides guidance for cutoff [...] Standards of Medical Care in Diabetes 2016, [place] [employer]. Diabetes Care. 2016.39(Suppl 1). Performed By: #### 2 777-1, 81184-9, #### [facility] CLIA [id number] [address] [place] [address] [place] Potassium [Moles/Vol] 3.6 mmol/L Low 3.7-5.1 [facility] Comment on above: Order Comment: Sana zuñiga Type: BLOOD SPECIMEN Ordering Facility: [facility] Address: [address] [place] [address] Performed By: #### 2 777-1, 02314-8, #### [facility] CLIA [id number] [address] [place] [address] [place] Sodium [Moles/Vol] 145 mmol/L High 136-144 [facility] Comment on above: Order Comment: Sana zuñiga Type: BLOOD SPECIMEN Ordering Facility: [facility] Address: [address] [place] [address] Performed By: #### 2 777-1, 90314-7, #### [facility] CLIA [id number] [address] [place] [address] [place] Urea nitrogen [Mass/Vol] 4 mg/dL Low 9-24 [facility] Comment on above: Order Comment: Speci men Type: BLOOD SPECIMEN Ordering Facility: [facility] Address: [address] [place] [address] Performed By: #### 2 777-1, 59283-5, #### [facility] CLIA [id number] [address] [place] [address] [place] CBC panel Auto (Bld)on 11-03 Erythrocyte distribution width (RBC) [Ratio] 14.3 % Normal 11.5-15.0 [facility] Comment on above: Order Comment: Speci men Type: BLOOD SPECIMEN Ordering Facility: [facility] Address: [address] [place] [address] Performed By: #### 2 777-1, 17569-2, #### [facility] CLIA [id number] [address] [place] [address] [place] Hematocrit (Bld) [Volume fraction] 33.4 % Low 39.0-51.0 [facility] Comment on above: Order Comment: Speci men Type: BLOOD SPECIMEN Ordering Facility: [facility] Address: [address] [place] [address] Performed By: #### 2 777-1, 39293-2, #### [facility] CLIA [id number] [address] [place] [address] [place] Hemoglobin (Bld) [Mass/Vol] 10.5 g/dL Low 13.0-17.0 [facility] Comment on above: Order Comment: Speci men Type: BLOOD SPECIMEN Ordering Facility: [facility] Address: [address] [place] [address] Performed By: #### 2 777-1, 17468-3, #### [facility] CLIA [id number] [address] [place] [address] [place] MCH (RBC) [Entitic mass] 26.4 pg Normal 26.0-34.0 [facility] Comment on above: Order Comment: Speci men Type: BLOOD SPECIMEN Ordering Facility: [facility] Address: [address] [place] [address] Performed By: #### 2 777-1, 34566-2, #### [facility] CLIA [id number] [address] [place] [address] [place] MCHC (RBC) [Mass/Vol] 31.4 g/dL Normal 30.5-36.0 [facility] Comment on above: Order Comment: Speci men Type: BLOOD SPECIMEN Ordering Facility: [facility] Address: [address] [place] [address] Performed By: #### 2 777-1, 17386-1, #### [facility] CLIA [id number] [address] [place] [address] [place] MCV (RBC) [Entitic vol] 84.1 fL Normal 80.0-100.0 [facility] Comment on above: Order Comment: Speci men Type: BLOOD SPECIMEN Ordering Facility: [facility] Address: [address] [place] [address] Performed By: #### 2 777-1, 22897-0, #### [facility] CLIA [id number] [address] [place] [address] [place] Nucleated RBC (Bld) [#/Vol] 10*3/uL Normal <0.01 [facility] Comment on above: Order Comment: Speci men Type: BLOOD SPECIMEN Ordering Facility: [facility] Address: [address] [place] [address] Performed By: #### 2 777-1, 28814-2, #### [facility] CLIA [id number] [address] [place] [address] [place] Platelet mean volume (Bld) [Entitic vol] 8.9 fL Low 9.0-12.7 [facility] Comment on above: Order Comment: Speci men Type: BLOOD SPECIMEN Ordering Facility: [facility] Address: [address] [place] [address] Performed By: #### 2 777-1, 26872-0, #### [facility] CLIA [id number] [address] [place] [address] [place] Platelets (Bld) [#/Vol] 242 10*3/uL Normal 150-400 [facility] Comment on above: Order Comment: Speci men Type: BLOOD SPECIMEN Ordering Facility: [facility] Address: [address] [place] [address] Performed By: #### 2 777-1, 52925-2, #### [facility] CLIA [id number] [address] [place] [address] [place] RBC (Bld) [#/Vol] 3.97 10*6/uL Low 4.20-6.00 [facility] Comment on above: Order Comment: Speci men Type: BLOOD SPECIMEN Ordering Facility: [facility] Address: [address] [place] [address] Performed By: #### 2 777-1, 64834-2, #### [facility] CLIA [id number] [address] [place] [address] [place] WBC (Bld) [#/Vol] 9.36 10*3/uL Normal 3.70-11.00 [facility] Comment on above: Order Comment: Speci men Type: BLOOD SPECIMEN Ordering Facility: [facility] Address: [address] [place] [address] Performed By: #### 2 777-1, 08458-9, #### [facility] CLIA [id number] [address] [place] [address] [place] Magnesium SerPl-mCncon 11-03 Magnesium [Mass/Vol] 2.0 mg/dL Normal 1.7-2.3 [facility] Comment on above: Order Comment: Speci men Type: BLOOD SPECIMEN Ordering Facility: [facility] Address: [address] [place] [address] Performed By: #### 2 777-1, 33715-4, #### [facility] CLIA [id number] [address] [place] [address] [place] NUTRITIONon 11-04-2023 NUTRITION HNO ID: [id number] Author: SAURABH VAZQUEZ DTR Service: Nutrition Therapy Author Type: Health And Safety Trainer Type: Nutrition Filed: 11/04/2023 14:35 Note Text: NUTRITION THERAPY BUSINESS RESILIENCY MANAGER NOTE SERVICE DATE: 11/04/2023 SERVICE TIME: 1030 Visit Type: Length of Stay Evaluation Goals Met: Not Met Will monitor for diet advancement and nutritional needs as able. Plan of Care: [facility] Assessment Malnutrition Score: 0 [...] November 04, 2023 TIME: 2:25 PM Normal [facility] Phosphate SerPl-mCncon 11-03 Phosphate [Mass/Vol] 2.6 mg/dL Low 2.7-4.8 [facility] Comment on above: Order Comment: Speci men Type: BLOOD SPECIMEN Ordering Facility: [facility] Address: [address] [place] [address] Performed By: #### 2 777-1, 33364-2, 28783-2 #### [facility] CLIA [id number] [address] [place] [address] [place] Valproate Free SerPl-mCncon 11-04-2023 Valproate Free [Mass/Vol] 11.3 ug/mL Normal 4.0-30.0 [facility] Comment on above: Order Comment: Speci yogesh Type: BLOOD SPECIMENOrdering Facility: [facility] Address: [address] [place] [address] Result Comment: Refe rence ranges and high/low indicator flags are provided as general guidelines only. The treating physician must determine appropriate target levels/dosing based on the specific clinical situation. This test was developed and its performance characteristics determined by [facility] [place] ([facility] It has not been cleared or approved by the FDA. -[facility] is regulated under CLIA as qualified to perform high-complexity testing. This test is used for clinical purposes. It should not be regarded as investigational or for research. Performed By: #### 4 087-3 ####[facility] [id number] [place] [address] [place] Valproate SerPl-ncon 11-03 Valproate [Mass/Vol] 49.2 ug/mL Low 50.0-100.0 [facility] Comment on above: Order Comment: Speci yogesh Type: BLOOD SPECIMEN Ordering Facility: [facility] Address: [address] [place] [address] Result Comment: Refe rence ranges and high/low indicator flags are provided as general guidelines only. The treating physician must determine appropriate target levels/dosing based on the specific clinical situation. Performed By: #### 2 4321-2, 02222-4, 2777-1 #### [facility] CLIA [id number] [address] [place] [address] [place] Basic metabolic 2000 panelon 11-03-2023 Anion gap [Moles/Vol] 11 mmol/L Normal 9-18 [facility] Comment on above: Order Comment: Speci men Type: BLOOD SPECIMEN Ordering Facility: [facility] Address: [address] [place] [address] Performed By: #### 2 777-1, 20760-2, 22845-0 #### [facility] CLIA [id number] [address] [place] [address] [place] Calcium [Mass/Vol] 7.7 mg/dL Low 8.5-10.2 [facility] Comment on above: Order Comment: Speci men Type: BLOOD SPECIMEN Ordering Facility: [facility] Address: [address] [place] [address] Performed By: #### 2 777-1, 22066-4, #### [facility] CLIA [id number] [address] [place] [address] [place] Chloride [Moles/Vol] 112 mmol/L High 97-105 [facility] Comment on above: Order Comment: Speci men Type: BLOOD SPECIMEN Ordering Facility: [facility] Address: [address] [place] [address] Performed By: #### 2 777-1, 11567-0, #### [facility] CLIA [id number] [address] [place] [address] [place] CO2 [Moles/Vol] 22 mmol/L Normal 22-30 [facility] Comment on above: Order Comment: Speci men Type: BLOOD SPECIMEN Ordering Facility: [facility] Address: [address] [place] [address] Performed By: #### 2 777-1, 20670-0, #### [facility] CLIA [id number] [address] [place] [address] [place] Creatinine [Mass/Vol] 0.68 mg/dL Low 0.73-1.22 [facility] Comment on above: Order Comment: Speci men Type: BLOOD SPECIMEN Ordering Facility: [facility] Address: [address] [place] [address] Performed By: #### 2 777-1, 62556-3, #### [facility] CLIA [id number] [address] [place] [address] [place] Creatinine and Glomerular filtration rate.predicted panel (S/P/Bld) 127 mL/min/1.73m??? Normal >=60 [facility] Comment on above: Order Comment: Sana zuñiga Type: BLOOD SPECIMEN Ordering Facility: [facility] Address: [address] [place] [address] Result Comment: Lor mated Glomerular Filtration Rate [...] actual GFR. Performed By: #### 2 777-1, 13780-3, #### [facility] CLIA [id number] [address] [place] [address] [place] Glucose [Mass/Vol] 85 mg/dL Normal 74-99 [facility] Comment on above: Order Comment: Sana zuñiga Type: BLOOD SPECIMEN Ordering Facility: [facility] Address: [address] [place] [address] Result Comment: The [place] [employer] (ADA) provides guidance for cutoff [...] Standards of Medical Care in Diabetes 2016, [place] [employer]. Diabetes Care. 2016.39(Suppl 1). Performed By: #### 2 777-1, 34264-6, #### [facility] CLIA [id number] [address] [place] [address] [place] Potassium [Moles/Vol] 3.4 mmol/L Low 3.7-5.1 [facility] Comment on above: Order Comment: Speci men Type: BLOOD SPECIMEN Ordering Facility: [facility] Address: [address] [place] [address] Performed By: #### 2 777-1, 59489-9, #### [facility] CLIA [id number] [address] [place] [address] [place] Sodium [Moles/Vol] 145 mmol/L High 136-144 [facility] Comment on above: Order Comment: Speci men Type: BLOOD SPECIMEN Ordering Facility: [facility] Address: [address] [place] [address] Performed By: #### 2 777-1, 48935-0, #### [facility] CLIA [id number] [address] [place] [address] [place] Urea nitrogen [Mass/Vol] 5 mg/dL Low 9-24 [facility] Comment on above: Order Comment: Speci men Type: BLOOD SPECIMEN Ordering Facility: [facility] Address: [address] [place] [address] Performed By: #### 2 777-1, 07173-1, #### [facility] CLIA [id number] [address] [place] [address] [place] CBC W Auto Differential pane l (Bld)on 11-03-2023 Basophils (Bld) [#/Vol] 10*3/uL Normal <0.11 [facility] Comment on above: Order Comment: Speci men Type: BLOOD SPECIMEN Ordering Facility: [facility] Address: [address] [place] [address] Performed By: #### 5 7021-8 #### [facility] CLIA [id number] [address] [place] [address] [place] Basophils/100 WBC (Bld) 0.3 % Normal [facility] Comment on above: Order Comment: Speci men Type: BLOOD SPECIMEN Ordering Facility: [facility] Address: [address] [place] [address] Performed By: #### 5 7021-8 #### [facility] CLIA [id number] [address] [place] [address] [place] Differential cell count method Nom (Bld) Auto Normal [facility] Comment on above: Order Comment: Speci men Type: BLOOD SPECIMEN Ordering Facility: [facility] Address: [address] [place] [address] Performed By: #### 5 7021-8 #### [facility] CLIA [id number] [address] [place] [address] [place] Eosinophils (Bld) [#/Vol] 0.25 10*3/uL Normal <0.46 [facility] Comment on above: Order Comment: Speci men Type: BLOOD SPECIMEN Ordering Facility: [facility] Address: [address] [place] [address] Performed By: #### 5 7021-8 #### [facility] CLIA [id number] [address] [place] [address] [place] Eosinophils/100 WBC (Bld) 3.1 % Normal [facility] Comment on above: Order Comment: Speci men Type: BLOOD SPECIMEN Ordering Facility: [facility] Address: [address] [place] [address] Performed By: #### 5 7021-8 #### [facility] CLIA [id number] [address] [place] [address] [place] Erythrocyte distribution width (RBC) [Ratio] 13.7 % Normal 11.5-15.0 [facility] Comment on above: Order Comment: Speci men Type: BLOOD SPECIMEN Ordering Facility: [facility] Address: [address] [place] [address] Performed By: #### 5 7021-8 #### [facility] CLIA [id number] [address] [place] [address] [place] Hematocrit (Bld) [Volume fraction] 29.9 % Low 39.0-51.0 [facility] Comment on above: Order Comment: Speci men Type: BLOOD SPECIMEN Ordering Facility: [facility] Address: [address] [place] [address] Performed By: #### 5 7021-8 #### [facility] CLIA [id number] [address] [place] [address] [place] Hemoglobin (Bld) [Mass/Vol] 9.4 g/dL Low 13.0-17.0 [facility] Comment on above: Order Comment: Speci men Type: BLOOD SPECIMEN Ordering Facility: [facility] Address: [address] [place] [address] Performed By: #### 5 7021-8 #### [facility] CLIA [id number] [address] [place] [address] [place] Immature granulocytes (Bld) [#/Vol] 0.11 10*3/uL High <0.10 [facility] Comment on above: Order Comment: Speci men Type: BLOOD SPECIMEN Ordering Facility: [facility] Address: [address] [place] [address] Performed By: #### 5 7021-8 #### [facility] CLIA [id number] [address] [place] [address] [place] Immature granulocytes/100 WBC (Bld) 1.4 % Normal [facility] Comment on above: Order Comment: Speci men Type: BLOOD SPECIMEN Ordering Facility: [facility] Address: [address] [place] [address] Performed By: #### 5 7021-8 #### [facility] CLIA [id number] [address] [place] [address] [place] Lymphocytes (Bld) [#/Vol] 2.03 10*3/uL Normal 1.00-4.00 [facility] Comment on above: Order Comment: Speci men Type: BLOOD SPECIMEN Ordering Facility: [facility] Address: [address] [place] [address] Performed By: #### 5 7021-8 #### [facility] CLIA [id number] [address] [place] [address] [place] Lymphocytes/100 WBC (Bld) 25.4 % Normal [facility] Comment on above: Order Comment: Speci men Type: BLOOD SPECIMEN Ordering Facility: [facility] Address: [address] [place] [address] Performed By: #### 5 7021-8 #### [facility] CLIA [id number] [address] [place] [address] [place] MCH (RBC) [Entitic mass] 26.5 pg Normal 26.0-34.0 [facility] Comment on above: Order Comment: Speci men Type: BLOOD SPECIMEN Ordering Facility: [facility] Address: [address] [place] [address] Performed By: #### 5 7021-8 #### [facility] CLIA [id number] [address] [place] [address] [place] MCHC (RBC) [Mass/Vol] 31.4 g/dL Normal 30.5-36.0 [facility] Comment on above: Order Comment: Speci men Type: BLOOD SPECIMEN Ordering Facility: [facility] Address: [address] [place] [address] Performed By: #### 5 7021-8 #### [facility] CLIA [id number] [address] [place] [address] [place] MCV (RBC) [Entitic vol] 84.2 fL Normal 80.0-100.0 [facility] Comment on above: Order Comment: Speci men Type: BLOOD SPECIMEN Ordering Facility: [facility] Address: [address] [place] [address] Performed By: #### 5 7021-8 #### [facility] CLIA [id number] [address] [place] [address] [place] Monocytes (Bld) [#/Vol] 0.62 10*3/uL Normal <0.87 [facility] Comment on above: Order Comment: Speci men Type: BLOOD SPECIMEN Ordering Facility: [facility] Address: [address] [place] [address] Performed By: #### 5 7021-8 #### [facility] CLIA [id number] [address] [place] [address] [place] Monocytes/100 WBC (Bld) 7.8 % Normal [facility] Comment on above: Order Comment: Speci men Type: BLOOD SPECIMEN Ordering Facility: [facility] Address: [address] [place] [address] Performed By: #### 5 7021-8 #### [facility] CLIA [id number] [address] [place] [address] [place] Neutrophils (Bld) [#/Vol] 4.96 10*3/uL Normal 1.45-7.50 [facility] Comment on above: Order Comment: Speci men Type: BLOOD SPECIMEN Ordering Facility: [facility] Address: [address] [place] [address] Performed By: #### 5 7021-8 #### [facility] CLIA [id number] [address] [place] [address] [place] Neutrophils/100 WBC (Bld) 62.0 % Normal [facility] Comment on above: Order Comment: Speci men Type: BLOOD SPECIMEN Ordering Facility: [facility] Address: [address] [place] [address] Performed By: #### 5 7021-8 #### [facility] CLIA [id number] [address] [place] [address] [place] Nucleated RBC (Bld) [#/Vol] 10*3/uL Normal <0.01 [facility] Comment on above: Order Comment: Speci men Type: BLOOD SPECIMEN Ordering Facility: [facility] Address: [address] [place] [address] Performed By: #### 5 7021-8 #### [facility] CLIA [id number] [address] [place] [address] [place] Nucleated RBC/100 WBC (Bld) [Ratio] 0.0 /100 WBC Normal [facility] Comment on above: Order Comment: Speci men Type: BLOOD SPECIMEN Ordering Facility: [facility] Address: [address] [place] [address] Performed By: #### 5 7021-8 #### [facility] CLIA [id number] [address] [place] [address] [place] Platelet mean volume (Bld) [Entitic vol] 9.3 fL Normal 9.0-12.7 [facility] Comment on above: Order Comment: Speci men Type: BLOOD SPECIMEN Ordering Facility: [facility] Address: [address] [place] [address] Performed By: #### 5 7021-8 #### [facility] CLIA [id number] [address] [place] [address] [place] Platelets (Bld) [#/Vol] 208 10*3/uL Normal 150-400 [facility] Comment on above: Order Comment: Speci men Type: BLOOD SPECIMEN Ordering Facility: [facility] Address: [address] [place] [address] Performed By: #### 5 7021-8 #### [facility] CLIA [id number] [address] [place] [address] [place] RBC (Bld) [#/Vol] 3.55 10*6/uL Low 4.20-6.00 [facility] Comment on above: Order Comment: Speci men Type: BLOOD SPECIMEN Ordering Facility: [facility] Address: [address] [place] [address] Performed By: #### 5 7021-8 #### [facility] CLIA [id number] [address] [place] [address] [place] WBC (Bld) [#/Vol] 7.99 10*3/uL Normal 3.70-11.00 [facility] Comment on above: Order Comment: Speci men Type: BLOOD SPECIMEN Ordering Facility: [facility] Address: [address] [place] [address] Performed By: #### 5 7021-8 #### [facility] CLIA [id number] [address] [place] [address] [place] CONSULTon 11-03-2023 CONSULT HNO ID: [id number] Author: CK HU MD Service: Neurology General [...] is brother, Delbert. Patient lives in a long-term at [place]. Per information written on board [...] (DULCOLAX) 10 mg RECTAL DAILY phenol 1 [place] (CHLORASEPTIC) 1 [place] MUCOUS MEMBRANE (TOPICAL MOUTH AND THROAT) q 2 H PRN Or benzocaine-menthol 1 [place] (CHLORASEPTIC) 1 [place] MUCOUS MEMBRANE (TOPICAL MOUTH AND THROAT) q 2 H PRN clomiPRAMINE 75 mg cap(s) (ANAFRANIL) 75 mg ORAL AT BEDTIME lithium carbonate 300 mg cap(s) (ESKALITH) 300 mg ORAL BID sertraline (ZOLOFT (more content not included)... Normal [facility] CT BRAIN WO IVCONon 11-03-[address] BRAIN WO IVCON * * *Final Report* * * DATE OF EXAM: Nov 03 2023 7:42PM [facility] [place]CON / [...] reduction techniques were required COMPARISON: None. RESULT: [employer] (topogram) images: No additional findings. Post-operative change: [...] No clear evidence of an acute abnormality. 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: [facility] Transcribe Date/Time: Nov 03 2023 7:43P Dictated by : HERMAN DOWD MD This examination was interpreted and the report reviewed and electronically signed by: HERMAN DOWD MD on Nov 03 2023 7:44PM EST [id number] Normal [facility] [place], Bld SerPl-sCncon [place] [Moles/Vol] 0.5 mmol/L Low 0.6-1.2 [facility] Comment on above: Order Comment: Speci men Type: BLOOD SPECIMEN Ordering Facility: [facility] Address: [address] [place], [place] [address] Result Comment: Refe rence ranges and high/low indicator flags are provided as general guidelines only. The treating physician must determine appropriate target levels/dosing based on the specific clinical situation. Performed By: #### 1 4334-7, 4086-5 #### [facility] CLIA [id number] [address] [place] [address] [place] Magnesium SerPl-ncon 11-02 Magnesium [Mass/Vol] 2.2 mg/dL Normal 1.7-2.3 [facility] Comment on above: Order Comment: Speci men Type: BLOOD SPECIMEN Ordering Facility: [facility] Address: [address] [place] [address] Performed By: #### 2 777-1, 31949-4, 07718-5 #### [facility] CLIA [id number] [address] [place] [address] [place] [facility] Phosphate [Mass/Vol] 2.5 mg/dL Low 2.7-4.8 [facility] Comment on above: Order Comment: Speci men Type: BLOOD SPECIMEN Ordering Facility: [facility] Address: [address] [place] [address] Performed By: #### 2 777-1, 15421-6, #### [facility] CLIA [id number] [address] [place] [address] [place] THERAPY NTon 11-03-2023 THERAPY NT HNO ID: [id number] Author: ANKITA JC PT, DPT Service: Physical Therapy Author Type: Physical Therapist Type: Therapy (PT/OT/Speech/Resp) Filed: 11/03/2023 13:48 Note Text: PHYSICAL THERAPY MISSED VISIT SERVICE DATE: 11/03/2023 SERVICE TIME: 1347 ROOM: [place] [address] Patient not seen due to Patient Not Available. Another service at bedside upon time of arrival x2 attempts. Will follow up as able/appropriate. SIGNATURE: Ankita Fine, PT, DPT PATIENT NAME: Johnny Devine DATE: November 03, 2023 TIME: 1:48 PM Normal [facility] Valproate SerPl-mCncon 11-02 Valproate [Mass/Vol] 53.0 ug/mL Normal 50.0-100.0 [facility] Comment on above: Order Comment: Speci men Type: BLOOD SPECIMEN Ordering Facility: [facility] Address: [address] [place] [address] Result Comment: Refe rence ranges and high/low indicator flags are provided as general guidelines only. The treating physician must determine appropriate target levels/dosing based on the specific clinical situation. Performed By: #### 1 4334-7, 4086-5 #### [facility] CLIA [id number] [address] [place] [address] [place] Basic metabolic 2000 panelon 11-02-2023 Anion gap [Moles/Vol] 8 mmol/L Low 9-18 [facility] Comment on above: Order Comment: Speci men Type: BLOOD SPECIMEN Ordering Facility: [facility] Address: [address] [place] [address] Performed By: #### 2 777-1, 90331-0, #### [facility] CLIA [id number] [address] [place] [address] [place] Calcium [Mass/Vol] 7.7 mg/dL Low 8.5-10.2 [facility] Comment on above: Order Comment: Speci men Type: BLOOD SPECIMEN Ordering Facility: [facility] Address: [address] [place] [address] Performed By: #### 2 777-1, 31973-0, #### [facility] CLIA [id number] [address] [place] [address] [place] Chloride [Moles/Vol] 109 mmol/L High 97-105 [facility] Comment on above: Order Comment: Speci men Type: BLOOD SPECIMEN Ordering Facility: [facility] Address: [address] [place] [address] Performed By: #### 2 777-1, 98836-5, #### [facility] CLIA [id number] [address] [place] [address] [place] CO2 [Moles/Vol] 24 mmol/L Normal 22-30 [facility] Comment on above: Order Comment: Speci men Type: BLOOD SPECIMEN Ordering Facility: [facility] Address: [address] [place] [address] Performed By: #### 2 777-1, 12191-9, #### [facility] CLIA [id number] [address] [place] [address] [place] Creatinine [Mass/Vol] 0.66 mg/dL Low 0.73-1.22 [facility] Comment on above: Order Comment: Speci men Type: BLOOD SPECIMEN Ordering Facility: [facility] Address: [address] [place] [address] Performed By: #### 2 777-1, 02453-6, #### [facility] CLIA [id number] [address] [place] [address] [place] Creatinine and Glomerular filtration rate.predicted panel (S/P/Bld) 129 mL/min/1.73m??? Normal >=60 [facility] Comment on above: Order Comment: Speci men Type: BLOOD SPECIMEN Ordering Facility: [facility] Address: [address] [place] [address] Result Comment: Lor mated Glomerular Filtration Rate [...] actual GFR. Performed By: #### 2 777-1, 40180-9, #### [facility] CLIA [id number] [address] [place] [address] [place] Glucose [Mass/Vol] 109 mg/dL High 74-99 [facility] Comment on above: Order Comment: Sana zuñiga Type: BLOOD SPECIMEN Ordering Facility: [facility] Address: [address] [place] [address] Result Comment: The [place] [employer] (ADA) provides guidance for cutoff [...] Standards of Medical Care in Diabetes 2016, [place] [employer]. Diabetes Care. 2016.39(Suppl 1). Performed By: #### 2 777-1, 62730-1, #### [facility] CLIA [id number] [address] [place] [address] [place] Potassium [Moles/Vol] 3.5 mmol/L Low 3.7-5.1 [facility] Comment on above: Order Comment: Akbari men Type: BLOOD SPECIMEN Ordering Facility: [facility] Address: [address] [place] [address] Performed By: #### 2 777-1, 72283-2, #### [facility] CLIA [id number] [address] [place] [address] [place] Sodium [Moles/Vol] 141 mmol/L Normal 136-144 [facility] Comment on above: Order Comment: Akbari men Type: BLOOD SPECIMEN Ordering Facility: [facility] Address: [address] [place] [address] Performed By: #### 2 777-1, 21969-3, #### [facility] CLIA [id number] [address] [place] [address] [place] Urea nitrogen [Mass/Vol] 7 mg/dL Low 9-24 [facility] Comment on above: Order Comment: Speci men Type: BLOOD SPECIMEN Ordering Facility: [facility] Address: [address] [place] [address] Performed By: #### 2 777-1, 70150-8, #### [facility] CLIA [id number] [address] [place] [address] [place] CBC W Auto Differential pane l (Bld)on 11-02-2023 Basophils (Bld) [#/Vol] 0.04 10*3/uL Normal <0.11 [facility] Comment on above: Order Comment: Speci men Type: BLOOD SPECIMEN Ordering Facility: [facility] Address: [address] [place] [address] Performed By: #### 2 4321-2, , 2776-08 #### [facility] CLIA [id number] [address] [place] [address] [place] Basophils/100 WBC (Bld) 0.5 % Normal [facility] Comment on above: Order Comment: Speci men Type: BLOOD SPECIMEN Ordering Facility: [facility] Address: [address] [place] [address] Performed By: #### 2 4321-2, , 2776-08 #### [facility] CLIA [id number] [address] [place] [address] [place] Differential cell count method Nom (Bld) Auto Normal [facility] Comment on above: Order Comment: Speci men Type: BLOOD SPECIMEN Ordering Facility: [facility] Address: [address] [place] [address] Performed By: #### 2 4321-2, , 2776-08 #### [facility] CLIA [id number] [address] [place] [address] [place] Eosinophils (Bld) [#/Vol] 0.24 10*3/uL Normal <0.46 [facility] Comment on above: Order Comment: Speci men Type: BLOOD SPECIMEN Ordering Facility: [facility] Address: [address] [place] [address] Performed By: #### 2 4321-2, , 2776-08 #### [facility] CLIA [id number] [address] [place] [address] [place] Eosinophils/100 WBC (Bld) 3.0 % Normal [facility] Comment on above: Order Comment: Speci men Type: BLOOD SPECIMEN Ordering Facility: [facility] Address: [address] [place] [address] Performed By: #### 2 432-2, , 2776-08 #### [facility] CLIA [id number] [address] [place] [address] [place] Erythrocyte distribution width (RBC) [Ratio] 14.0 % Normal 11.5-15.0 [facility] Comment on above: Order Comment: Speci men Type: BLOOD SPECIMEN Ordering Facility: [facility] Address: [address] [place] [address] Performed By: #### 2 432-2, , 2776-08 #### [facility] CLIA [id number] [address] [place] [address] [place] Hematocrit (Bld) [Volume fraction] 36.5 % Low 39.0-51.0 [facility] Comment on above: Order Comment: Speci men Type: BLOOD SPECIMEN Ordering Facility: [facility] Address: [address] [place] [address] Performed By: #### 2 4321-2, , 2776-08 #### [facility] CLIA [id number] [address] [place] [address] [place] Hemoglobin (Bld) [Mass/Vol] 11.2 g/dL Low 13.0-17.0 [facility] Comment on above: Order Comment: Speci men Type: BLOOD SPECIMEN Ordering Facility: [facility] Address: [address] [place] [address] Performed By: #### 2 4321-2, , 2776-08 #### [facility] CLIA [id number] [address] [place] [address] [place] Immature granulocytes (Bld) [#/Vol] 0.10 10*3/uL High <0.10 [facility] Comment on above: Order Comment: Speci men Type: BLOOD SPECIMEN Ordering Facility: [facility] Address: [address] [place] [address] Performed By: #### 2 432-2, , 2776-08 #### [facility] CLIA [id number] [address] [place] [address] [place] Immature granulocytes/100 WBC (Bld) 1.3 % Normal [facility] Comment on above: Order Comment: Speci men Type: BLOOD SPECIMEN Ordering Facility: [facility] Address: [address] [place] [address] Performed By: #### 2 4321-2, , 2776-08 #### [facility] CLIA [id number] [address] [place] [address] [place] Lymphocytes (Bld) [#/Vol] 1.78 10*3/uL Normal 1.00-4.00 [facility] Comment on above: Order Comment: Speci men Type: BLOOD SPECIMEN Ordering Facility: [facility] Address: [address] [place] [address] Performed By: #### 2 4321-2, , 2776-08 #### [facility] CLIA [id number] [address] [place] [address] [place] Lymphocytes/100 WBC (Bld) 22.3 % Normal [facility] Comment on above: Order Comment: Speci men Type: BLOOD SPECIMEN Ordering Facility: [facility] Address: [address] [place] [address] Performed By: #### 2 4321-2, , 2776-08 #### [facility] CLIA [id number] [address] [place] [address] [place] MCH (RBC) [Entitic mass] 26.2 pg Normal 26.0-34.0 [facility] Comment on above: Order Comment: Speci men Type: BLOOD SPECIMEN Ordering Facility: [facility] Address: [address] [place] [address] Performed By: #### 2 4321-2, , 2776-08 #### [facility] CLIA [id number] [address] [place] [address] [place] MCHC (RBC) [Mass/Vol] 30.7 g/dL Normal 30.5-36.0 [facility] Comment on above: Order Comment: Speci men Type: BLOOD SPECIMEN Ordering Facility: [facility] Address: [address] [place] [address] Performed By: #### 2 4321-2, , 2776-08 #### [facility] CLIA [id number] [address] [place] [address] [place] MCV (RBC) [Entitic vol] 85.5 fL Normal 80.0-100.0 [facility] Comment on above: Order Comment: Speci men Type: BLOOD SPECIMEN Ordering Facility: [facility] Address: [address] [place] [address] Performed By: #### 2 4321-2, , 2776-08 #### [facility] CLIA [id number] [address] [place], [place] [address] [place] Monocytes (Bld) [#/Vol] 0.58 10*3/uL Normal <0.87 [facility] Comment on above: Order Comment: Speci men Type: BLOOD SPECIMEN Ordering Facility: [facility] Address: [address] [place] [address] Performed By: #### 2 4321-2, , 2776-08 #### [facility] CLIA [id number] [address] [place] [address] [place] Monocytes/100 WBC (Bld) 7.3 % Normal [facility] Comment on above: Order Comment: Speci men Type: BLOOD SPECIMEN Ordering Facility: [facility] Address: [address] [place] [address] Performed By: #### 2 4321-2, , 2776-08 #### [facility] CLIA [id number] [address] [place] [address] [place] Neutrophils (Bld) [#/Vol] 5.24 10*3/uL Normal 1.45-7.50 [facility] Comment on above: Order Comment: Speci men Type: BLOOD SPECIMEN Ordering Facility: [facility] Address: [address] [place] [address] Performed By: #### 2 432-2, , 2776-08 #### [facility] CLIA [id number] [address] [place] [address] [place] Neutrophils/100 WBC (Bld) 65.6 % Normal [facility] Comment on above: Order Comment: Speci men Type: BLOOD SPECIMEN Ordering Facility: [facility] Address: [address] [place] [address] Performed By: #### 2 4321-2, , 2776-08 #### [facility] CLIA [id number] [address] [place] [address] [place] Nucleated RBC (Bld) [#/Vol] 10*3/uL Normal <0.01 [facility] Comment on above: Order Comment: Speci men Type: BLOOD SPECIMEN Ordering Facility: [facility] Address: [address] [place] [address] Performed By: #### 2 4321-2, , 2776-08 #### [facility] CLIA [id number] [address] [place] [address] [place] Nucleated RBC/100 WBC (Bld) [Ratio] 0.0 /100 WBC Normal [facility] Comment on above: Order Comment: Speci men Type: BLOOD SPECIMEN Ordering Facility: [facility] Address: [address] [place] [address] Performed By: #### 2 4321-2, , 2776-08 #### [facility] CLIA [id number] [address] [place] [address] [place] Platelet mean volume (Bld) [Entitic vol] 9.7 fL Normal 9.0-12.7 [facility] Comment on above: Order Comment: Speci men Type: BLOOD SPECIMEN Ordering Facility: [facility] Address: [address] [place] [address] Performed By: #### 2 4321-2, , 2776-08 #### [facility] CLIA [id number] [address] [place] [address] [place] Platelets (Bld) [#/Vol] 199 10*3/uL Normal 150-400 [facility] Comment on above: Order Comment: Speci men Type: BLOOD SPECIMEN Ordering Facility: [facility] Address: [address] [place] [address] Performed By: #### 2 4321-2, , 2776-08 #### [facility] CLIA [id number] [address] [place], [place] [address] [place] RBC (Bld) [#/Vol] 4.27 10*6/uL Normal 4.20-6.00 [facility] Comment on above: Order Comment: Speci men Type: BLOOD SPECIMEN Ordering Facility: [facility] Address: [address] [place] [address] Performed By: #### 2 4321-2, 15313-3, 2776-08 #### [facility] CLIA [id number] [address] [place] [address] [place] WBC (Bld) [#/Vol] 7.98 10*3/uL Normal 3.70-11.00 [facility] Comment on above: Order Comment: Speci men Type: BLOOD SPECIMEN Ordering Facility: [facility] Address: [address] [place] [address] Performed By: #### 2 4321-2, , 2776-08 #### [facility] CLIA [id number] [address] [place] [address] [place] Magnesium SerPl-mCncon 11-01 Magnesium [Mass/Vol] 2.3 mg/dL Normal 1.7-2.3 [facility] Comment on above: Order Comment: Speci men Type: BLOOD SPECIMEN Ordering Facility: [facility] Address: [address] [place] [address] Performed By: #### 2 777-1, 73708-8, #### [facility] CLIA [id number] [address] [place] [address] [place] Phosphate SerPl-mCncon 11-01 Phosphate [Mass/Vol] 2.6 mg/dL Low 2.7-4.8 [facility] Comment on above: Order Comment: Speci men Type: BLOOD SPECIMEN Ordering Facility: [facility] Address: [address] [place] [address] Performed By: #### 2 777-1, 75882-6, #### [facility] CLIA [id number] [address] [place] [address] [place] XR ABDOMEN 1V [...] small bowel. Findings suggestive of improving ileus. 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: [facility] Transcribe Date/Time: Nov 02 2023 11:50A Dictated by : VERONICA CARTER MD This examination was interpreted and the report reviewed and electronically signed by: VERONICA CARTER MD on Nov 02 2023 11:52AM EST [id number] N Normal [facility] Basic metabolic 2000 panelon 11-01-2023 Anion gap [Moles/Vol] 10 mmol/L Normal 9-18 [facility] Comment on above: Order Comment: Speci men Type: BLOOD SPECIMEN Ordering Facility: [facility] Address: [address] [place] [address] Performed By: #### 5 7021-8 #### [facility] CLIA [id number] [address] [place] [address] [place] Calcium [Mass/Vol] 7.9 mg/dL Low 8.5-10.2 [facility] Comment on above: Order Comment: Speci men Type: BLOOD SPECIMEN Ordering Facility: [facility] Address: [address] [place] [address] Performed By: #### 5 7021-8 #### [facility] CLIA [id number] [address] [place] [address] [place] Chloride [Moles/Vol] 114 mmol/L High 97-105 [facility] Comment on above: Order Comment: Speci men Type: BLOOD SPECIMEN Ordering Facility: [facility] Address: [address] [place] [address] Performed By: #### 5 7021-8 #### [facility] CLIA [id number] [address] [place] [address] [place] CO2 [Moles/Vol] 22 mmol/L Normal 22-30 [facility] Comment on above: Order Comment: Speci men Type: BLOOD SPECIMEN Ordering Facility: [facility] Address: [address] [place] [address] Performed By: #### 5 7021-8 #### [facility] CLIA [id number] [address] [place] [address] [place] Creatinine [Mass/Vol] 0.74 mg/dL Normal 0.73-1.22 [facility] Comment on above: Order Comment: Speci men Type: BLOOD SPECIMEN Ordering Facility: [facility] Address: [address] [place] [address] Performed By: #### 5 7021-8 #### [facility] CLIA [id number] [address] [place] [address] [place] Creatinine and Glomerular filtration rate.predicted panel (S/P/Bld) 124 mL/min/1.73m??? Normal >=60 [facility] Comment on above: Order Comment: Speci men Type: BLOOD SPECIMEN Ordering Facility: [facility] Address: [address] [place] [address] Result Comment: Lor mated Glomerular Filtration Rate [...] GFR. Performed By: #### 5 7021-8 #### [facility] CLIA [id number] [address] [place] [address] [place] Glucose [Mass/Vol] 98 mg/dL Normal 74-99 [facility] Comment on above: Order Comment: Sana zuñiga Type: BLOOD SPECIMEN Ordering Facility: [facility] Address: [address] [place] [address] Result Comment: The [place] [employer] (ADA) provides guidance for cutoff [...] Standards of Medical Care in Diabetes 2016, [place] [employer]. Diabetes Care. 2016.39(Suppl 1). Performed By: #### 5 7021-8 #### [facility] CLIA [id number] [address] [place] [address] [place] Potassium [Moles/Vol] 3.9 mmol/L Normal 3.7-5.1 [facility] Comment on above: Order Comment: Akbari men Type: BLOOD SPECIMEN Ordering Facility: [facility] Address: [address] [place] [address] Performed By: #### 5 7021-8 #### [facility] CLIA [id number] [address] [place] [address] [place] Sodium [Moles/Vol] 146 mmol/L High 136-144 [facility] Comment on above: Order Comment: Sana zuñiga Type: BLOOD SPECIMEN Ordering Facility: [facility] Address: [address] [place] [address] Performed By: #### 5 7021-8 #### [facility] CLIA [id number] [address] [place] [address] [place] Urea nitrogen [Mass/Vol] 9 mg/dL Normal 9-24 [facility] Comment on above: Order Comment: Speci men Type: BLOOD SPECIMEN Ordering Facility: [facility] Address: [address] [place] [address] Performed By: #### 5 7021-8 #### [facility] CLIA [id number] [address] [place] [address] [place] CBC W Auto Differential pane l (Bld)on 11-01-2023 Basophils (Bld) [#/Vol] 10*3/uL Normal <0.11 [facility] Comment on above: Order Comment: Speci men Type: BLOOD SPECIMENOrdering Facility: [facility] Address: [address] [place] [address] Performed By: #### 5 7021-8 ####[facility] [id number] [place] [address] [place] Basophils/100 WBC (Bld) 0.3 % Normal [facility] Comment on above: Order Comment: Speci men Type: BLOOD SPECIMENOrdering Facility: [facility] Address: [address] [place] [address] Performed By: #### 5 7021-8 ####[facility] [id number] [place] [address] [place] Differential cell count method Nom (Bld) Auto Normal [facility] Comment on above: Order Comment: Speci men Type: BLOOD SPECIMENOrdering Facility: [facility] Address: [address] [place] [address] Performed By: #### 5 7021-8 ####[facility] [id number] [place] [address] [place] Eosinophils (Bld) [#/Vol] 0.23 10*3/uL Normal <0.46 [facility] Comment on above: Order Comment: Speci men Type: BLOOD SPECIMENOrdering Facility: [facility] Address: [address] [place] [address] Performed By: #### 5 7021-8 ####[facility] [id number] [place] [address] [place] Eosinophils/100 WBC (Bld) 3.0 % Normal [facility] Comment on above: Order Comment: Speci men Type: BLOOD SPECIMENOrdering Facility: [facility] Address: [address] [place] [address] Performed By: #### 5 7021-8 ####[facility] LABIA [id number] [place] [address] [place] Erythrocyte distribution width (RBC) [Ratio] 14.6 % Normal 11.5-15.0 [facility] Comment on above: Order Comment: Speci men Type: BLOOD SPECIMENOrdering Facility: [facility] Address: [address] [place] [address] Performed By: #### 5 7021-8 ####[facility]IA [id number] [place] [address] [place] Hematocrit (Bld) [Volume fraction] 28.6 % Low 39.0-51.0 [facility] Comment on above: Order Comment: Speci men Type: BLOOD SPECIMENOrdering Facility: [facility] Address: [address] [place] [address] Performed By: #### 5 7021-8 ####[facility]IA [id number] [place] [address] [place] Hemoglobin (Bld) [Mass/Vol] 9.0 g/dL Low 13.0-17.0 [facility] Comment on above: Order Comment: Speci men Type: BLOOD SPECIMENOrdering Facility: [facility] Address: [address] [place] [address] Performed By: #### 5 7021-8 ####[facility] LABCLIA [id number] [place] [address] [place] Immature granulocytes (Bld) [#/Vol] 0.05 10*3/uL Normal <0.10 [facility] Comment on above: Order Comment: Speci men Type: BLOOD SPECIMENOrdering Facility: [facility] Address: [address] [place] [address] Performed By: #### 5 7021-8 ####[facility] LABCLIA [id number] [place] [address] [place] Immature granulocytes/100 WBC (Bld) 0.7 % Normal [facility] Comment on above: Order Comment: Speci men Type: BLOOD SPECIMENOrdering Facility: [facility] Address: [address] [place] [address] Performed By: #### 5 7021-8 ####[facility] LABCLIA [id number] [place] [address] [place] Lymphocytes (Bld) [#/Vol] 1.86 10*3/uL Normal 1.00-4.00 [facility] Comment on above: Order Comment: Speci men Type: BLOOD SPECIMENOrdering Facility: [facility] Address: [address] [place] [address] Performed By: #### 5 7021-8 ####[facility] LABCLIA [id number] [place] [address] [place] Lymphocytes/100 WBC (Bld) 24.3 % Normal [facility] Comment on above: Order Comment: Speci men Type: BLOOD SPECIMENOrdering Facility: [facility] Address: [address] [place] [address] Performed By: #### 5 7021-8 ####[facility] LABCLIA [id number] [place] [address] [place] MCH (RBC) [Entitic mass] 26.8 pg Normal 26.0-34.0 [facility] Comment on above: Order Comment: Speci men Type: BLOOD SPECIMENOrdering Facility: [facility] Address: [address] [place] [address] Performed By: #### 5 7021-8 ####[facility] LABCLIA [id number] [place] [address] [place] MCHC (RBC) [Mass/Vol] 31.5 g/dL Normal 30.5-36.0 [facility] Comment on above: Order Comment: Speci men Type: BLOOD SPECIMENOrdering Facility: [facility] Address: [address] [place] [address] Performed By: #### 5 7021-8 ####[facility]IA [id number] [place] [address] [place] MCV (RBC) [Entitic vol] 85.1 fL Normal 80.0-100.0 [facility] Comment on above: Order Comment: Speci men Type: BLOOD SPECIMENOrdering Facility: [facility] Address: [address] [place] [address] Performed By: #### 5 7021-8 ####[facility]IA [id number] [place] [address] [place] Monocytes (Bld) [#/Vol] 0.62 10*3/uL Normal <0.87 [facility] Comment on above: Order Comment: Speci men Type: BLOOD SPECIMENOrdering Facility: [facility] Address: [address] [place] [address] Performed By: #### 5 7021-8 ####[facility]IA [id number] [place] [address] [place] Monocytes/100 WBC (Bld) 8.1 % Normal [facility] Comment on above: Order Comment: Speci men Type: BLOOD SPECIMENOrdering Facility: [facility] Address: [address] [place] [address] Performed By: #### 5 7021-8 ####[facility] LABCLIA [id number] [place] [address] [place] Neutrophils (Bld) [#/Vol] 4.87 10*3/uL Normal 1.45-7.50 [facility] Comment on above: Order Comment: Speci men Type: BLOOD SPECIMENOrdering Facility: [facility] Address: [address] [place] [address] Performed By: #### 5 7021-8 ####[facility] LABCLIA [id number] [place] [address] [place] Neutrophils/100 WBC (Bld) 63.6 % Normal [facility] Comment on above: Order Comment: Speci men Type: BLOOD SPECIMENOrdering Facility: [facility] Address: [address] [place] [address] Performed By: #### 5 7021-8 ####[facility] LABCLIA [id number] [place] [address] [place] Nucleated RBC (Bld) [#/Vol] 10*3/uL Normal <0.01 [facility] Comment on above: Order Comment: Speci men Type: BLOOD SPECIMENOrdering Facility: [facility] Address: [address] [place] [address] Performed By: #### 5 7021-8 ####[facility] LABCLIA [id number] [place] [address] [place] Nucleated RBC/100 WBC (Bld) [Ratio] 0.0 /100 WBC Normal [facility] Comment on above: Order Comment: Speci men Type: BLOOD SPECIMENOrdering Facility: [facility] Address: [address] [place] [address] Performed By: #### 5 7021-8 ####[facility] LABCLIA [id number] [place] [address] [place] Platelet mean volume (Bld) [Entitic vol] 9.6 fL Normal 9.0-12.7 [facility] Comment on above: Order Comment: Speci men Type: BLOOD SPECIMENOrdering Facility: [facility] Address: [address] [place] [address] Performed By: #### 5 7021-8 ####[facility] LABCLIA [id number] [place] [address] [place] Platelets (Bld) [#/Vol] 148 10*3/uL Low 150-400 [facility] Comment on above: Order Comment: Speci men Type: BLOOD SPECIMENOrdering Facility: [facility] Address: [address] [place] [address] Performed By: #### 5 7021-8 ####[facility]IA [id number] [place] [address] [place] RBC (Bld) [#/Vol] 3.36 10*6/uL Low 4.20-6.00 [facility] Comment on above: Order Comment: Speci men Type: BLOOD SPECIMENOrdering Facility: [facility] Address: [address] [place] [address] Performed By: #### 5 7021-8 ####[facility] LABIA [id number] [place] [address] [place] WBC (Bld) [#/Vol] 7.65 10*3/uL Normal 3.70-11.00 [facility] Comment on above: Order Comment: Speci men Type: BLOOD SPECIMENOrdering Facility: [facility] Address: [address] [place] [address] Performed By: #### 5 7021-8 ####[facility] LABIA [id number] [place] [address] [place] Magnesium SerPl-mCncon 10-31 Magnesium [Mass/Vol] 2.4 mg/dL High 1.7-2.3 [facility] Comment on above: Order Comment: Speci men Type: BLOOD SPECIMEN Ordering Facility: [facility] Address: [address] [place] [address] Performed By: #### 5 7021-8 #### [facility] CLIA [id number] [address] [place] [address] [place] Phosphate SerPl-mCncon 10-31 Phosphate [Mass/Vol] 2.3 mg/dL Low 2.7-4.8 [facility] Comment on above: Order Comment: Speci men Type: BLOOD SPECIMEN Ordering Facility: [facility] Address: [address] [place] [address] Performed By: #### 5 7021-8 #### [facility] CLIA [id number] [address] [place] [address] [place] Basic metabolic 2000 panelon 10-31-2023 Anion gap [Moles/Vol] 10 mmol/L Normal 9-18 [facility] Comment on above: Order Comment: Speci men Type: BLOOD SPECIMEN Ordering Facility: [facility] Address: [address] [place] [address] Performed By: #### 2 777-1, 46469-4, #### [facility] CLIA [id number] [address] [place] [address] [place] Calcium [Mass/Vol] 7.8 mg/dL Low 8.5-10.2 [facility] Comment on above: Order Comment: Speci men Type: BLOOD SPECIMEN Ordering Facility: [facility] Address: [address] [place] [address] Performed By: #### 2 777-1, 09022-4, 34587-6 #### [facility] CLIA [id number] [address] [place] [address] [place] Chloride [Moles/Vol] 115 mmol/L High 97-105 [facility] Comment on above: Order Comment: Speci men Type: BLOOD SPECIMEN Ordering Facility: [facility] Address: [address] [place], [place] [address] Performed By: #### 2 777-1, 23907-4, #### [facility] CLIA [id number] [address] [place], [place] [address] [place] CO2 [Moles/Vol] 23 mmol/L Normal 22-30 [facility] Comment on above: Order Comment: Speci men Type: BLOOD SPECIMEN Ordering Facility: [facility] Address: [address] [place] [address] Performed By: #### 2 777-1, 06479-8, #### [facility] CLIA [id number] [address] [place] [address] [place] Creatinine [Mass/Vol] 0.72 mg/dL Low 0.73-1.22 [facility] Comment on above: Order Comment: Speci men Type: BLOOD SPECIMEN Ordering Facility: [facility] Address: [address] [place] [address] Performed By: #### 2 777-1, , #### [facility] CLIA [id number] [address] [place] [address] [place] Creatinine and Glomerular filtration rate.predicted panel (S/P/Bld) 125 mL/min/1.73m??? Normal >=60 [facility] Comment on above: Order Comment: Speci men Type: BLOOD SPECIMEN Ordering Facility: [facility] Address: [address] [place] [address] Result Comment: Lor mated Glomerular Filtration Rate [...] actual GFR. Performed By: #### 2 777-1, 09110-3, #### [facility] CLIA [id number] [address] [place] [address] [place] Glucose [Mass/Vol] 93 mg/dL Normal 74-99 [facility] Comment on above: Order Comment: Sana men Type: BLOOD SPECIMEN Ordering Facility: [facility] Address: [address] [place] [address] Result Comment: The [place] [employer] (ADA) provides guidance for cutoff [...] Standards of Medical Care in Diabetes 2016, [place] [employer]. Diabetes Care. 2016.39(Suppl 1). Performed By: #### 2 777-1, , #### [facility] CLIA [id number] [address] [place] [address] [place] Potassium [Moles/Vol] 3.9 mmol/L Normal 3.7-5.1 [facility] Comment on above: Order Comment: Akbari men Type: BLOOD SPECIMEN Ordering Facility: [facility] Address: [address] [place] [address] Performed By: #### 2 777-1, 94414-4, #### [facility] CLIA [id number] [address] [place] [address] [place] Sodium [Moles/Vol] 148 mmol/L High 136-144 [facility] Comment on above: Order Comment: Akbari men Type: BLOOD SPECIMEN Ordering Facility: [facility] Address: [address] [place] [address] Performed By: #### 2 777-1, 85385-5, #### [facility] CLIA [id number] [address] [place] [address] [place] Urea nitrogen [Mass/Vol] 8 mg/dL Low 9-24 [facility] Comment on above: Order Comment: Speci men Type: BLOOD SPECIMEN Ordering Facility: [facility] Address: [address] [place] [address] Performed By: #### 2 777-1, 64915-1, #### [facility] CLIA [id number] [address] [place] [address] [place] CBC W Auto Differential pane l (Bld)on 10-31-2023 Basophils (Bld) [#/Vol] 10*3/uL Normal <0.11 [facility] Comment on above: Order Comment: Speci men Type: BLOOD SPECIMEN Ordering Facility: [facility] Address: [address] [place] [address] Performed By: #### 5 7021-8 #### [facility] CLIA [id number] [address] [place] [address] [place] Basophils/100 WBC (Bld) 0.2 % Normal [facility] Comment on above: Order Comment: Speci men Type: BLOOD SPECIMEN Ordering Facility: [facility] Address: [address] [place] [address] Performed By: #### 5 7021-8 #### [facility] CLIA [id number] [address] [place] [address] [place] Differential cell count method Nom (Bld) Auto Normal [facility] Comment on above: Order Comment: Speci men Type: BLOOD SPECIMEN Ordering Facility: [facility] Address: [address] [place] [address] Performed By: #### 5 7021-8 #### [facility] CLIA [id number] [address] [place] [address] [place] Eosinophils (Bld) [#/Vol] 0.18 10*3/uL Normal <0.46 [facility] Comment on above: Order Comment: Speci men Type: BLOOD SPECIMEN Ordering Facility: [facility] Address: [address] [place] [address] Performed By: #### 5 7021-8 #### [facility] CLIA [id number] [address] [place] [address] [place] Eosinophils/100 WBC (Bld) 1.9 % Normal [facility] Comment on above: Order Comment: Speci men Type: BLOOD SPECIMEN Ordering Facility: [facility] Address: [address] [place] [address] Performed By: #### 5 7021-8 #### [facility] CLIA [id number] [address] [place] [address] [place] Erythrocyte distribution width (RBC) [Ratio] 14.5 % Normal 11.5-15.0 [facility] Comment on above: Order Comment: Speci men Type: BLOOD SPECIMEN Ordering Facility: [facility] Address: [address] [place] [address] Performed By: #### 5 7021-8 #### [facility] CLIA [id number] [address] [place] [address] [place] Hematocrit (Bld) [Volume fraction] 30.2 % Low 39.0-51.0 [facility] Comment on above: Order Comment: Speci men Type: BLOOD SPECIMEN Ordering Facility: [facility] Address: [address] [place] [address] Performed By: #### 5 7021-8 #### [facility] CLIA [id number] [address] [place] [address] [place] Hemoglobin (Bld) [Mass/Vol] 9.4 g/dL Low 13.0-17.0 [facility] Comment on above: Order Comment: Speci men Type: BLOOD SPECIMEN Ordering Facility: [facility] Address: [address] [place] [address] Performed By: #### 5 7021-8 #### [facility] CLIA [id number] [address] [place] [address] [place] Immature granulocytes (Bld) [#/Vol] 0.06 10*3/uL Normal <0.10 [facility] Comment on above: Order Comment: Speci men Type: BLOOD SPECIMEN Ordering Facility: [facility] Address: [address] [place] [address] Performed By: #### 5 7021-8 #### [facility] CLIA [id number] [address] [place] [address] [place] Immature granulocytes/100 WBC (Bld) 0.6 % Normal [facility] Comment on above: Order Comment: Speci men Type: BLOOD SPECIMEN Ordering Facility: [facility] Address: [address] [place] [address] Performed By: #### 5 7021-8 #### [facility] CLIA [id number] [address] [place] [address] [place] Lymphocytes (Bld) [#/Vol] 1.61 10*3/uL Normal 1.00-4.00 [facility] Comment on above: Order Comment: Speci men Type: BLOOD SPECIMEN Ordering Facility: [facility] Address: [address] [place] [address] Performed By: #### 5 7021-8 #### [facility] CLIA [id number] [address] [place] [address] [place] Lymphocytes/100 WBC (Bld) 16.8 % Normal [facility] Comment on above: Order Comment: Speci men Type: BLOOD SPECIMEN Ordering Facility: [facility] Address: [address] [place] [address] Performed By: #### 5 7021-8 #### [facility] CLIA [id number] [address] [place] [address] [place] MCH (RBC) [Entitic mass] 26.5 pg Normal 26.0-34.0 [facility] Comment on above: Order Comment: Speci men Type: BLOOD SPECIMEN Ordering Facility: [facility] Address: [address] [place] [address] Performed By: #### 5 7021-8 #### [facility] CLIA [id number] [address] [place] [address] [place] MCHC (RBC) [Mass/Vol] 31.1 g/dL Normal 30.5-36.0 [facility] Comment on above: Order Comment: Speci men Type: BLOOD SPECIMEN Ordering Facility: [facility] Address: [address] [place] [address] Performed By: #### 5 7021-8 #### [facility] CLIA [id number] [address] [place] [address] [place] MCV (RBC) [Entitic vol] 85.1 fL Normal 80.0-100.0 [facility] Comment on above: Order Comment: Speci men Type: BLOOD SPECIMEN Ordering Facility: [facility] Address: [address] [place] [address] Performed By: #### 5 7021-8 #### [facility] CLIA [id number] [address] [place] [address] [place] Monocytes (Bld) [#/Vol] 0.88 10*3/uL High <0.87 [facility] Comment on above: Order Comment: Speci men Type: BLOOD SPECIMEN Ordering Facility: [facility] Address: [address] [place] [address] Performed By: #### 5 7021-8 #### [facility] CLIA [id number] [address] [place] [address] [place] Monocytes/100 WBC (Bld) 9.2 % Normal [facility] Comment on above: Order Comment: Speci men Type: BLOOD SPECIMEN Ordering Facility: [facility] Address: [address] [place] [address] Performed By: #### 5 7021-8 #### [facility] CLIA [id number] [address] [place] [address] [place] Neutrophils (Bld) [#/Vol] 6.84 10*3/uL Normal 1.45-7.50 [facility] Comment on above: Order Comment: Speci men Type: BLOOD SPECIMEN Ordering Facility: [facility] Address: [address] [place] [address] Performed By: #### 5 7021-8 #### [facility] CLIA [id number] [address] [place] [address] [place] Neutrophils/100 WBC (Bld) 71.3 % Normal [facility] Comment on above: Order Comment: Speci men Type: BLOOD SPECIMEN Ordering Facility: [facility] Address: [address] [place] [address] Performed By: #### 5 7021-8 #### [facility] CLIA [id number] [address] [place] [address] [place] Nucleated RBC (Bld) [#/Vol] 10*3/uL Normal <0.01 [facility] Comment on above: Order Comment: Speci men Type: BLOOD SPECIMEN Ordering Facility: [facility] Address: [address] [place] [address] Performed By: #### 5 7021-8 #### [facility] CLIA [id number] [address] [place] [address] [place] Nucleated RBC/100 WBC (Bld) [Ratio] 0.0 /100 WBC Normal [facility] Comment on above: Order Comment: Speci men Type: BLOOD SPECIMEN Ordering Facility: [facility] Address: [address] [place] [address] Performed By: #### 5 7021-8 #### [facility] CLIA [id number] [address] [place] [address] [place] Platelet mean volume (Bld) [Entitic vol] 9.8 fL Normal 9.0-12.7 [facility] Comment on above: Order Comment: Speci men Type: BLOOD SPECIMEN Ordering Facility: [facility] Address: [address] [place] [address] Performed By: #### 5 7021-8 #### [facility] CLIA [id number] [address] [place] [address] [place] Platelets (Bld) [#/Vol] 144 10*3/uL Low 150-400 [facility] Comment on above: Order Comment: Speci men Type: BLOOD SPECIMEN Ordering Facility: [facility] Address: [address] [place] [address] Result Comment: Resu lts checked and verified.No clot detected. Performed By: #### 5 7021-8 #### [facility] CLIA [id number] [address] [place] [address] [place] RBC (Bld) [#/Vol] 3.55 10*6/uL Low 4.20-6.00 [facility] Comment on above: Order Comment: Speci men Type: BLOOD SPECIMEN Ordering Facility: [facility] Address: [address] [place] [address] Performed By: #### 5 7021-8 #### [facility] CLIA [id number] [address] [place] [address] [place] WBC (Bld) [#/Vol] 9.59 10*3/uL Normal 3.70-11.00 [facility] Comment on above: Order Comment: Speci men Type: BLOOD SPECIMEN Ordering Facility: [facility] Address: [address] [place] [address] Performed By: #### 5 7021-8 #### [facility] CLIA [id number] [address] [place] [address] [place] CBC panel Auto (Bld)on 10-30 Erythrocyte distribution width (RBC) [Ratio] 14.5 % Normal 11.5-15.0 [facility] Comment on above: Order Comment: Speci men Type: BLOOD SPECIMEN Ordering Facility: [facility] Address: [address] [place] [address] Performed By: #### 5 7021-8 #### [facility] CLIA [id number] [address] [place] [address] [place] Hematocrit (Bld) [Volume fraction] 28.6 % Low 39.0-51.0 [facility] Comment on above: Order Comment: Speci men Type: BLOOD SPECIMEN Ordering Facility: [facility] Address: [address] [place] [address] Performed By: #### 5 7021-8 #### [facility] CLIA [id number] [address] [place] [address] [place] Hemoglobin (Bld) [Mass/Vol] 9.1 g/dL Low 13.0-17.0 [facility] Comment on above: Order Comment: Speci men Type: BLOOD SPECIMEN Ordering Facility: [facility] Address: [address] [place] [address] Performed By: #### 5 7021-8 #### [facility] CLIA [id number] [address] [place] [address] [place] MCH (RBC) [Entitic mass] 27.1 pg Normal 26.0-34.0 [facility] Comment on above: Order Comment: Speci men Type: BLOOD SPECIMEN Ordering Facility: [facility] Address: [address] [place] [address] Performed By: #### 5 7021-8 #### [facility] CLIA [id number] [address] [place] [address] [place] MCHC (RBC) [Mass/Vol] 31.8 g/dL Normal 30.5-36.0 [facility] Comment on above: Order Comment: Speci men Type: BLOOD SPECIMEN Ordering Facility: [facility] Address: [address] [place] [address] Performed By: #### 5 7021-8 #### [facility] CLIA [id number] [address] [place] [address] [place] MCV (RBC) [Entitic vol] 85.1 fL Normal 80.0-100.0 [facility] Comment on above: Order Comment: Speci men Type: BLOOD SPECIMEN Ordering Facility: [facility] Address: [address] [place] [address] Performed By: #### 5 7021-8 #### [facility] CLIA [id number] [address] [place] [address] [place] Nucleated RBC (Bld) [#/Vol] 10*3/uL Normal <0.01 [facility] Comment on above: Order Comment: Speci men Type: BLOOD SPECIMEN Ordering Facility: [facility] Address: [address] [place] [address] Performed By: #### 5 7021-8 #### [facility] CLIA [id number] [address] [place] [address] [place] [place] Platelet mean volume (Bld) [Entitic vol] 10.1 fL Normal 9.0-12.7 [facility] Comment on above: Order Comment: Speci men Type: BLOOD SPECIMEN Ordering Facility: [facility] Address: [address] [place] [address] Performed By: #### 5 7021-8 #### [facility] CLIA [id number] [address] [place] [address] [place] Platelets (Bld) [#/Vol] 180 10*3/uL Normal 150-400 [facility] Comment on above: Order Comment: Speci men Type: BLOOD SPECIMEN Ordering Facility: [facility] Address: [address] [place] [address] Performed By: #### 5 7021-8 #### [facility] CLIA [id number] [address] [place] [address] [place] RBC (Bld) [#/Vol] 3.36 10*6/uL Low 4.20-6.00 [facility] Comment on above: Order Comment: Speci men Type: BLOOD SPECIMEN Ordering Facility: [facility] Address: [address] [place] [address] Performed By: #### 5 7021-8 #### [facility] CLIA [id number] [address] [place] [address] [place] WBC (Bld) [#/Vol] 10.06 10*3/uL Normal 3.70-11.00 [facility] Comment on above: Order Comment: Speci men Type: BLOOD SPECIMEN Ordering Facility: [facility] Address: [address] [place] [address] Performed By: #### 5 7021-8 #### [facility] CLIA [id number] [address] [place] [address] [place] CONSULT PROGon 10-31-2023 CONSULT PROG HNO ID: [id number] Author: HEAVEN CAMACHO MD Service: Urology Author Type: Resident Type: Consult Progress Note Filed: 10/31/2023 06:56 Note Text: [facility] UROLOGY PROGRESS NOTE Name: Johnny Devine Bed: H071 [id number]/[id number] Date: 10/31/2023 After Hours [facility] Urology Service Pager: [phone] ASSESSMENT AND PLAN Johnny Devine is a [...] affiliate, Dr. Joseph Camacho MD Urology Resident [facility] Pager [phone] For weekend or after hours issues please page the on-call urology pager [phone] 10/31/2023 6:48 AM Subjective SUBJECTIVE - See [...] Imaging All relevant recent imaging reviewed Normal [facility] Comprehensive metabolic 2000 panelon 10-31-2023 Albumin [Mass/Vol] 3.1 g/dL Low 3.9-4.9 [facility] Comment on above: Order Comment: Speci men Type: BLOOD SPECIMEN Ordering Facility: [facility] Address: [address] [place] [address] Performed By: #### 5 7021-8 #### [facility] CLIA [id number] [address] [place] [address] [place] ALP [Catalytic activity/Vol] 31 U/L Low 38-113 [facility] Comment on above: Order Comment: Speci men Type: BLOOD SPECIMEN Ordering Facility: [facility] Address: [address] [place] [address] Performed By: #### 5 7021-8 #### [facility] CLIA [id number] [address] [place] [address] [place] ALT [Catalytic activity/Vol] 6 U/L Low 10-54 [facility] Comment on above: Order Comment: Speci men Type: BLOOD SPECIMEN Ordering Facility: [facility] Address: [address] [place] [address] Performed By: #### 5 7021-8 #### [facility] CLIA [id number] [address] [place] [address] [place] Anion gap [Moles/Vol] 6 mmol/L Low 9-18 [facility] Comment on above: Order Comment: Speci men Type: BLOOD SPECIMEN Ordering Facility: [facility] Address: [address] [place] [address] Performed By: #### 5 7021-8 #### [facility] CLIA [id number] [address] [place] [address] [place] AST [Catalytic activity/Vol] 13 U/L Low 14-40 [facility] Comment on above: Order Comment: Speci men Type: BLOOD SPECIMEN Ordering Facility: [facility] Address: [address] [place] [address] Performed By: #### 5 7021-8 #### [facility] CLIA [id number] [address] [place] [address] [place] Bilirubin [Mass/Vol] mg/dL Low 0.2-1.3 [facility] Comment on above: Order Comment: Speci men Type: BLOOD SPECIMEN Ordering Facility: [facility] Address: [address] [place] [address] Performed By: #### 5 7021-8 #### [facility] CLIA [id number] [address] [place] [address] [place] Calcium [Mass/Vol] 7.4 mg/dL Low 8.5-10.2 [facility] Comment on above: Order Comment: Speci men Type: BLOOD SPECIMEN Ordering Facility: [facility] Address: [address] [place] [address] Performed By: #### 5 7021-8 #### [facility] CLIA [id number] [address] [place] [address] [place] Chloride [Moles/Vol] 115 mmol/L High 97-105 [facility] Comment on above: Order Comment: Speci men Type: BLOOD SPECIMEN Ordering Facility: [facility] Address: [address] [place] [address] Performed By: #### 5 7021-8 #### [facility] CLIA [id number] [address] [place] [address] [place] CO2 [Moles/Vol] 26 mmol/L Normal 22-30 [facility] Comment on above: Order Comment: Speci men Type: BLOOD SPECIMEN Ordering Facility: [facility] Address: [address] [place] [address] Performed By: #### 5 7021-8 #### [facility] CLIA [id number] [address] [place] [address] [place] Creatinine [Mass/Vol] 0.73 mg/dL Normal 0.73-1.22 [facility] Comment on above: Order Comment: Sana zuñiga Type: BLOOD SPECIMEN Ordering Facility: [facility] Address: [address] [place] [address] Performed By: #### 5 7021-8 #### [facility] CLIA [id number] [address] [place] [address] [place] Creatinine and Glomerular filtration rate.predicted panel (S/P/Bld) 125 mL/min/1.73m??? Normal >=60 [facility] Comment on above: Order Comment: Sana zuñiga Type: BLOOD SPECIMEN Ordering Facility: [facility] Address: [address] [place] [address] Result Comment: Lor mated Glomerular Filtration Rate [...] GFR. Performed By: #### 5 7021-8 #### [facility] CLIA [id number] [address] [place] [address] [place] Glucose [Mass/Vol] 103 mg/dL High 74-99 [facility] Comment on above: Order Comment: Akbari men Type: BLOOD SPECIMEN Ordering Facility: [facility] Address: [address] [place] [address] Result Comment: The [place] [employer] (ADA) provides guidance for cutoff [...] Standards of Medical Care in Diabetes 2016, [place] [employer]. Diabetes Care. 2016.39(Suppl 1). Performed By: #### 5 7021-8 #### [facility] CLIA [id number] [address] [place] [address] [place] Potassium [Moles/Vol] 4.0 mmol/L Normal 3.7-5.1 [facility] Comment on above: Order Comment: Speci men Type: BLOOD SPECIMEN Ordering Facility: [facility] Address: [address] [place] [address] Performed By: #### 5 7021-8 #### [facility] CLIA [id number] [address] [place] [address] [place] Protein [Mass/Vol] 5.6 g/dL Low 6.3-8.0 [facility] Comment on above: Order Comment: Speci men Type: BLOOD SPECIMEN Ordering Facility: [facility] Address: [address] [place] [address] Performed By: #### 5 7021-8 #### [facility] CLIA [id number] [address] [place] [address] [place] Sodium [Moles/Vol] 147 mmol/L High 136-144 [facility] Comment on above: Order Comment: Speci men Type: BLOOD SPECIMEN Ordering Facility: [facility] Address: [address] [place] [address] Performed By: #### 5 7021-8 #### [facility] CLIA [id number] [address] [place] [address] [place] Urea nitrogen [Mass/Vol] 9 mg/dL Normal 9-24 [facility] Comment on above: Order Comment: Speci men Type: BLOOD SPECIMEN Ordering Facility: [facility] Address: [address] [place] [address] Performed By: #### 5 7021-8 #### [facility] CLIA [id number] [address] [place] [address] [place] [address] [place] BRI43lc 10-31-2023 ECG01 Ventricular Rate : 9 3 BPM Atrial Rate : 93 BPM P-R Interval : 146 ms QRS Duration : 90 ms Q-T Interval : 394 ms QTC Calculation(Bazett) : 489 ms Calculated P [place] : 7 degrees Calculated R [place] : 11 degrees Calculated T [place] : -11 degrees NORMAL SINUS RHYTHM ANTEROLATERAL T WAVE ABNORMALITY BORDERLINE PROLONGED QTC ABNORMAL ECG Confirmed by TRENT BYRD MD ([id number]) on 11/06/2023 9:42:18 AM NAME : JOHNNY DEVINE PID : [id number] : 1990 Gender : Male Race : ORD : Procedure Date : Oct 31 2023 15:33:44 Edit Date : Nov 06 2023 09:42:18 Diagnosis: NORMAL SINUS RHYTHM ANTEROLATERAL T WAVE ABNORMALITY BORDERLINE PROLONGED QTC ABNORMAL ECG Confirmed by TRENT BYRD MD ([id number]) on 11/06/2023 9:42:18 AM Test Reason : AMET Location : 74 : 1 1- Overread By : TRENT BYRD MD Edited By : TRENT BYRD MD Referred By : PHOENIX CARDENAS Acquired by : MARI DUMONT [facility] MEDICAL EMERon 10-31-2023 MEDICAL [facility]EST HNO ID: [id number] Author: PASTORA KINGSLEY APRN.LEAD SQL DEVELOPER Service: Critical Care Author Type: Nurse Practitioner [...] October 31, 2023 TIME: 4:13 PM Normal [facility] Magnesium SerPl-mCncon 10-30 Magnesium [Mass/Vol] 2.2 mg/dL Normal 1.7-2.3 [facility] Comment on above: Order Comment: Speci men Type: BLOOD SPECIMENOrdering Facility: [facility] Address: [address] [place] [address] Performed By: #### 1 9123-9, 2777-1 ####[facility] [id number] [place] [address] [place] Magnesium [Mass/Vol] 2.1 mg/dL Normal 1.7-2.3 [facility] Comment on above: Order Comment: Speci men Type: BLOOD SPECIMEN Ordering Facility: [facility] Address: [address] [place] [address] Performed By: #### 2 777-1, 08790-2, 45506-3 #### [facility] CLIA [id number] [address] [place] [address] [place] NURSING PROGon 10-31-2023 NURSING PROG HNO ID: [id number] Author: PAZ RIGGINS RN Service: Nursing Author Type: Registered Nurse Type: Nursing Progress Note Filed: 10/31/2023 16:32 Note Text: Called into patients room by brother who stated patient was shaking hard and having seizure like activity, on entering room patient was tachypneic and breathing hard, AMET activated. Chest xray ordered, EKG done, labs done, oxygen 89 on RA, 2L NC applied. Normal [facility] Phosphate SerPl-mCncon 10-30 Phosphate [Mass/Vol] 1.4 mg/dL Low 2.7-4.8 [facility] Comment on above: Order Comment: Speci men Type: BLOOD SPECIMENOrdering Facility: [facility] Address: [address] [place] [address] Performed By: #### 1 9123-9, 2777-1 ####[facility] [id number] [place] [address] [place] Phosphate [Mass/Vol] 2.1 mg/dL Low 2.7-4.8 [facility] Comment on above: Order Comment: Speci men Type: BLOOD SPECIMEN Ordering Facility: [facility] Address: [address] [place] [address] Performed By: #### 2 777-1, 25621-0, 41039-5 #### [facility] CLIA [id number] [address] [place] [address] [place] [address] [place] XR ABDOMEN 1V [...] abnormality. Lung bases are not well seen. 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: PSCB Transcribe Date/Time: Oct 31 2023 5:15P Dictated by : LEONEL ALONZO MD This examination was interpreted and the report reviewed and electronically signed by: LEONEL ALONZO MD on Oct 31 2023 5:22PM EST [id number] Normal [facility] XR CHEST 1V FRONTAL PORTon 0 [...] cardiomediastinal silhouette. Other: . IMPRESSION: See result. 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: PSCB Transcribe Date/Time: Oct 31 2023 4:14P Dictated by : SHEA WORTHY MD This examination was interpreted and the report reviewed and electronically signed by: SHEA WORTHY MD on Oct 31 2023 4:15PM EST [id number] Normal [facility] ANES POSTPROC EVALon 024 ANES POSTPROC EVAL HNO ID: [id number] Author: JEREMIE JOAQUIN MD Service: ? Author Type: Anesthesiologist Type: Anesthesia Postprocedure Evaluation Filed: 10/30/2023 11:55 Note Text: POST ANESTHESIA EVALUATION NOTE : 1990 Procedure Summary Date: 10/30/23 [address] Start: 731 Anesthesia Stop: 902 [...] October 30, 2023 TIME: 11:46 AM CSN: [id number] Normal [facility] ANES PRE-OPon 10-30-2023 ANES PRE-OP HNO ID: [id number] Author: JEREMIE JOAQUIN MD Service: ? Author Type: Anesthesiologist Type: Anesthesia Preprocedure Evaluation Filed: 10/30/2023 08:16 Note Text: ANESTHESIOLOGY DAY OF SURGERY NOTE : 1990 Procedure Information Date/Time: 10/30/23729 Procedure: DORSAL SLIT [place] EXCEPT (Penis) Location: [facility]IN [facility] Surgeons: Rafael Giraldo MD [...] mL MUCOUS MEMBRANE ONCE - phenol 1 [place] (CHLORASEPTIC) 1 [place] MUCOUS MEMBRANE (TOPICAL MOUTH AND THROAT) q [...] INTRAVENOUS DAILY (6 AM) - phenol 1 [place] (CHLORASEPTIC) 1 [place] MUCOUS MEMBRANE (TOPICAL MOUTH AND THROAT) q [...] MORNING F (more content not included)... Normal [facility] Basic metabolic 2000 panelon 10-30-2023 Anion gap [Moles/Vol] 12 mmol/L Normal 9-18 [facility] Comment on above: Order Comment: Speci men Type: BLOOD SPECIMEN Ordering Facility: [facility] Address: [address] [place] [address] Performed By: #### 2 4321-2, , 2776-08 #### [facility] CLIA [id number] [address] [place] [address] [place] Calcium [Mass/Vol] 7.4 mg/dL Low 8.5-10.2 [facility] Comment on above: Order Comment: Speci men Type: BLOOD SPECIMEN Ordering Facility: [facility] Address: [address] [place] [address] Performed By: #### 2 4321-2, , 2776-08 #### [facility] CLIA [id number] [address] [place] [address] [place] Chloride [Moles/Vol] 113 mmol/L High 97-105 [facility] Comment on above: Order Comment: Speci men Type: BLOOD SPECIMEN Ordering Facility: [facility] Address: [address] [place], [place] [address] Performed By: #### 2 4321-2, , 2776-08 #### [facility] CLIA [id number] [address] [place] [address] [place] CO2 [Moles/Vol] 24 mmol/L Normal 22-30 [facility] Comment on above: Order Comment: Speci men Type: BLOOD SPECIMEN Ordering Facility: [facility] Address: [address] [place], [place] [address] Performed By: #### 2 4321-2, , 2776-08 #### [facility] CLIA [id number] [address] [place] [address] [place] Creatinine [Mass/Vol] 0.69 mg/dL Low 0.73-1.22 [facility] Comment on above: Order Comment: Speci men Type: BLOOD SPECIMEN Ordering Facility: [facility] Address: [address] [place] [address] Performed By: #### 2 4321-2, 64715-5, 2777-1 #### [facility] CLIA [id number] [address] [place] [address] [place] Creatinine and Glomerular filtration rate.predicted panel (S/P/Bld) 127 mL/min/1.73m??? Normal >=60 [facility] Comment on above: Order Comment: Sana zuñiga Type: BLOOD SPECIMEN Ordering Facility: [facility] Address: [address] [place] [address] Result Comment: Lor mated Glomerular Filtration Rate [...] actual GFR. Performed By: #### 2 4321-2, 27335-6, 2777- #### [facility] CLIA [id number] [address] [place] [address] [place] Glucose [Mass/Vol] 98 mg/dL Normal 74-99 [facility] Comment on above: Order Comment: Sana zuñiga Type: BLOOD SPECIMEN Ordering Facility: [facility] Address: [address] [place] [address] Result Comment: The [place] [employer] (ADA) provides guidance for cutoff [...] Standards of Medical Care in Diabetes 2016, [place] [employer]. Diabetes Care. 2016.39(Suppl 1). Performed By: #### 2 4321-2, 34666-2, 2776- #### [facility] CLIA [id number] [address] [place] [address] [place] Potassium [Moles/Vol] 3.6 mmol/L Low 3.7-5.1 [facility] Comment on above: Order Comment: Speci men Type: BLOOD SPECIMEN Ordering Facility: [facility] Address: [address] [place] [address] Performed By: #### 2 4321-2, , 2776-08 #### [facility] CLIA [id number] [address] [place] [address] [place] Sodium [Moles/Vol] 149 mmol/L High 136-144 [facility] Comment on above: Order Comment: Speci men Type: BLOOD SPECIMEN Ordering Facility: [facility] Address: [address] [place] [address] Performed By: #### 2 4321-2, , 2776-08 #### [facility] CLIA [id number] [address] [place] [address] [place] Urea nitrogen [Mass/Vol] 9 mg/dL Normal 9-24 [facility] Comment on above: Order Comment: Speci men Type: BLOOD SPECIMEN Ordering Facility: [facility] Address: [address] [place] [address] Performed By: #### 2 4321-2, , 2776-08 #### [facility] CLIA [id number] [address] [place] [address] [place] CBC W Auto Differential pane l (Bld)on 10-30-2023 Basophils (Bld) [#/Vol] 0.03 10*3/uL Normal <0.11 [facility] Comment on above: Order Comment: Speci men Type: BLOOD SPECIMEN Ordering Facility: [facility] Address: [address] [place] [address] Performed By: #### 5 7021-8 #### [facility] CLIA [id number] [address] [place] [address] [place] Basophils/100 WBC (Bld) 0.3 % Normal [facility] Comment on above: Order Comment: Speci men Type: BLOOD SPECIMEN Ordering Facility: [facility] Address: [address] [place] [address] Performed By: #### 5 7021-8 #### [facility] CLIA [id number] [address] [place] [address] [place] Differential cell count method Nom (Bld) Auto Normal [facility] Comment on above: Order Comment: Speci men Type: BLOOD SPECIMEN Ordering Facility: [facility] Address: [address] [place] [address] Performed By: #### 5 7021-8 #### [facility] CLIA [id number] [address] [place] [address] [place] Eosinophils (Bld) [#/Vol] 0.07 10*3/uL Normal <0.46 [facility] Comment on above: Order Comment: Speci men Type: BLOOD SPECIMEN Ordering Facility: [facility] Address: [address] [place] [address] Performed By: #### 5 7021-8 #### [facility] CLIA [id number] [address] [place] [address] [place] Eosinophils/100 WBC (Bld) 0.6 % Normal [facility] Comment on above: Order Comment: Speci men Type: BLOOD SPECIMEN Ordering Facility: [facility] Address: [address] [place] [address] Performed By: #### 5 7021-8 #### [facility] CLIA [id number] [address] [place] [address] [place] Erythrocyte distribution width (RBC) [Ratio] 14.5 % Normal 11.5-15.0 [facility] Comment on above: Order Comment: Speci men Type: BLOOD SPECIMEN Ordering Facility: [facility] Address: [address] [place] [address] Performed By: #### 5 7021-8 #### [facility] CLIA [id number] [address] [place] [address] [place] Hematocrit (Bld) [Volume fraction] 31.1 % Low 39.0-51.0 [facility] Comment on above: Order Comment: Speci men Type: BLOOD SPECIMEN Ordering Facility: [facility] Address: [address] [place] [address] Performed By: #### 5 7021-8 #### [facility] CLIA [id number] [address] [place] [address] [place] Hemoglobin (Bld) [Mass/Vol] 9.8 g/dL Low 13.0-17.0 [facility] Comment on above: Order Comment: Speci men Type: BLOOD SPECIMEN Ordering Facility: [facility] Address: [address] [place] [address] Performed By: #### 5 7021-8 #### [facility] CLIA [id number] [address] [place] [address] [place] Immature granulocytes (Bld) [#/Vol] 0.06 10*3/uL Normal <0.10 [facility] Comment on above: Order Comment: Speci men Type: BLOOD SPECIMEN Ordering Facility: [facility] Address: [address] [place] [address] Performed By: #### 5 7021-8 #### [facility] CLIA [id number] [address] [place] [address] [place] Immature granulocytes/100 WBC (Bld) 0.5 % Normal [facility] Comment on above: Order Comment: Speci men Type: BLOOD SPECIMEN Ordering Facility: [facility] Address: [address] [place] [address] Performed By: #### 5 7021-8 #### [facility] CLIA [id number] [address] [place] [address] [place] Lymphocytes (Bld) [#/Vol] 1.41 10*3/uL Normal 1.00-4.00 [facility] Comment on above: Order Comment: Speci men Type: BLOOD SPECIMEN Ordering Facility: [facility] Address: [address] [place] [address] Performed By: #### 5 7021-8 #### [facility] CLIA [id number] [address] [place] [address] [place] Lymphocytes/100 WBC (Bld) 12.0 % Normal [facility] Comment on above: Order Comment: Speci men Type: BLOOD SPECIMEN Ordering Facility: [facility] Address: [address] [place] [address] Performed By: #### 5 7021-8 #### [facility] CLIA [id number] [address] [place] [address] [place] MCH (RBC) [Entitic mass] 26.6 pg Normal 26.0-34.0 [facility] Comment on above: Order Comment: Speci men Type: BLOOD SPECIMEN Ordering Facility: [facility] Address: [address] [place] [address] Performed By: #### 5 7021-8 #### [facility] CLIA [id number] [address] [place] [address] [place] MCHC (RBC) [Mass/Vol] 31.5 g/dL Normal 30.5-36.0 [facility] Comment on above: Order Comment: Speci men Type: BLOOD SPECIMEN Ordering Facility: [facility] Address: [address] [place] [address] Performed By: #### 5 7021-8 #### [facility] CLIA [id number] [address] [id number] [address] [place] MCV (RBC) [Entitic vol] 84.5 fL Normal 80.0-100.0 [facility] Comment on above: Order Comment: Speci men Type: BLOOD SPECIMEN Ordering Facility: [facility] Address: [address] [place] [address] Performed By: #### 5 7021-8 #### [facility] CLIA [id number] [address] [place] [address] [place] Monocytes (Bld) [#/Vol] 1.18 10*3/uL High <0.87 [facility] Comment on above: Order Comment: Speci men Type: BLOOD SPECIMEN Ordering Facility: [facility] Address: [address] [place] [address] Performed By: #### 5 7021-8 #### [facility] CLIA [id number] [address] [place] [address] [place] Monocytes/100 WBC (Bld) 10.1 % Normal [facility] Comment on above: Order Comment: Speci men Type: BLOOD SPECIMEN Ordering Facility: [facility] Address: [address] [place] [address] Performed By: #### 5 7021-8 #### [facility] [facility] CLIA [id number] [address] [place] [address] [place] Neutrophils (Bld) [#/Vol] 8.98 10*3/uL High 1.45-7.50 [facility] Comment on above: Order Comment: Speci men Type: BLOOD SPECIMEN Ordering Facility: [facility] Address: [address] [place] [address] Performed By: #### 5 7021-8 #### [facility] CLIA [id number] [address] [place] [address] [place] Neutrophils/100 WBC (Bld) 76.5 % Normal [facility] Comment on above: Order Comment: Speci men Type: BLOOD SPECIMEN Ordering Facility: [facility] Address: [address] [place], [place] [address] Performed By: #### 5 7021-8 #### [facility] CLIA [id number] [address] [place] [address] [place] Nucleated RBC (Bld) [#/Vol] 10*3/uL Normal <0.01 [facility] Comment on above: Order Comment: Speci men Type: BLOOD SPECIMEN Ordering Facility: [facility] Address: [address] [place] [address] Performed By: #### 5 7021-8 #### [facility] CLIA [id number] [address] [place] [address] [place] Nucleated RBC/100 WBC (Bld) [Ratio] 0.0 /100 WBC Normal [facility] Comment on above: Order Comment: Speci men Type: BLOOD SPECIMEN Ordering Facility: [facility] Address: [address] [place] [address] Performed By: #### 5 7021-8 #### [facility] CLIA [id number] [address] [place] [address] [place] Platelet mean volume (Bld) [Entitic vol] 9.7 fL Normal 9.0-12.7 [facility] Comment on above: Order Comment: Speci men Type: BLOOD SPECIMEN Ordering Facility: [facility] Address: [address] [place] [address] Performed By: #### 5 7021-8 #### [facility] CLIA [id number] [address] [place] [address] [place] Platelets (Bld) [#/Vol] 138 10*3/uL Low 150-400 [facility] Comment on above: Order Comment: Speci men Type: BLOOD SPECIMEN Ordering Facility: [facility] Address: [address] [place] [address] Performed By: #### 5 7021-8 #### [facility] CLIA [id number] [address] [place] [address] [place] RBC (Bld) [#/Vol] 3.68 10*6/uL Low 4.20-6.00 [facility] Comment on above: Order Comment: Speci men Type: BLOOD SPECIMEN Ordering Facility: [facility] Address: [address] [place] [address] Performed By: #### 5 7021-8 #### [facility] CLIA [id number] [address] [place] [address] [place] WBC (Bld) [#/Vol] 11.73 10*3/uL High 3.70-11.00 [facility] Comment on above: Order Comment: Speci men Type: BLOOD SPECIMEN Ordering Facility: [facility] Address: [address] [place] [address] Performed By: #### 5 7021-8 #### [facility] CLIA [id number] [address] [place] [address] [place] CONSULTon 10-30-2023 CONSULT HNO ID: [id number] Author: RAFAEL GIRALDO MD Service: Urology Author [...] the meatal orifice was visualized, an 8 [place]ian Haskins catheter was sterilely placed. 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 CYU was [...] CONGESTIONDisp: Rfl: guanFACINE (INTUNIV ER) 4 mg [id number] 4 mg by mouth onc (more content not included)... Normal [facility] Magnesium SerPl-mCncon 10-29 Magnesium [Mass/Vol] 2.0 mg/dL Normal 1.7-2.3 [facility] Comment on above: Order Comment: Speci men Type: BLOOD SPECIMENOrdering Facility: [facility] Address: [address] [place] [address] Performed By: #### 2 4321-2, 07563-6, 2777-1 ####[facility] [id number] [address] [facility] NURSING PROGon 10-30-2023 NURSING PROG HNO ID: [id number] Author: SHAHRIAR FARFAN, RN Service: Nursing Author Type: Registered Nurse Type: Nursing Progress Note Filed: 10/30/2023 09:52 Note Text: Pt awake, opens eyes spontaneously, MEDINA to command, generalized weakness. Nonverbal at baseline. VSS. Appears comfortable, no grimacing, resting Normal [facility] NURSING PROG HNO ID: [id number] Author: SHAHRIAR FARFAN, RN Service: Nursing Author [...] effective in protecting the patient's safety: Alarms, Towboat Pilot/Sitter, Bed in Low/Locked Position Next, a comprehensive assessment was performed and warranted placing the patient in Soft Bilateral Wrists, the least restrictive restraint needed to protect the patient's safety. Ongoing safety assessments and evaluation for earliest removal of restraints will be performed. DATE: October 30, 2023 TIME: 9:48 AM Shahriar Farfan RN Normal [facility] NURSING PROG HNO ID: [id number] Author: LEONARD FRANCIS JR, RN Service: Nursing Author Type: Registered Nurse Type: Nursing Progress Note Filed: 10/30/2023 01:11 Note Text: 2200 PM: PT does not have have a haskins catheter post op. Per report, prior to OR PT was admitted from OSH with a pediatric haskins in place due to difficulties with normal catheter. [id number] Gen surg notified. PT is clean and [...] Gen surg at bedside Leonard PINEDA. Normal [facility] OPERATIVE NOon 10-30-2023 OPERATIVE NO HNO ID: [id number] Author: HERMAN JOHNSON MD Service: Urology Author Type: Resident Type: Operative Report Filed: 10/30/2023 09:08 Note Text: Attestation signed by Ocsar Ruiz MD at 10/30/2023 9:20 AM Attestation The primary proceduralist, Wale Thomas, performed the entire procedure with the assistance of Dr. Johnson. I agree with the documentation above. [facility] UROLOGY OPERATIVE REPORT Patient Name: Johnny Devine Patient Log ID: [id number] Surgery Date: 10/30/2023 Incision/Procedure Start Time: 8:03 AM Incision Close/Procedure End Time: 8:17 AM Surgeon(s) and Adjunct Sociology Professor(s): Surgeon(s) and Role: * Oscar Ruiz MD [...] I agree with the documentation above. Normal [facility] Phosphate SerPl-mCncon 10-29 Phosphate [Mass/Vol] 2.2 mg/dL Low 2.7-4.8 [facility] Comment on above: Order Comment: Speci men Type: BLOOD SPECIMENOrdering Facility: [facility] Address: [address] [place] [address] Performed By: #### 2 4321-2, 88343-0, 2777-1 ####[facility] [id number] [place] [address] [place] XR ABDOMEN 1V [...] likely an ileus. Sigmoid distention appears improved 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: PSCB Transcribe Date/Time: Oct 30 2023 7:41A Dictated by : RYAN MORRIS MD This examination was interpreted and the report reviewed and electronically signed by: RYAN MORRIS MD on Oct 30 2023 7:43AM EST [id number] Normal [facility] ANES POSTPROC EVALon 024 ANES POSTPROC EVAL HNO ID: [id number] Author: DORIE TENA DO Service: ? Author Type: Anesthesiologist Type: Anesthesia Postprocedure Evaluation Filed: 10/29/2023 14:37 Note Text: POST ANESTHESIA EVALUATION NOTE : 1990 Procedure Summary Date: 10/29/23 Room / Location: [address] [facility] Anesthesia Start: 0948 Anesthesia [...] October 29, 2023 TIME: 2:34 PM CSN: [id number] Normal [facility] ANES PRE-OPon 10-29-2023 ANES PRE-OP HNO ID: [id number] Author: KENZIE MORE APRN.PAPER SUPERVISOR Service: ? Author Type: Nurse Breaker Off Type: Anesthesia Preprocedure Evaluation Filed: 10/29/2023 09:58 Note Text: ANESTHESIOLOGY DAY OF SURGERY NOTE : 1990 Procedure Information Anesthesia Start Date/Time: 10/29/23947 Procedure: EXPLORATORY LAPAROTOMY (Abdomen) Location: MAIN [facility] Surgeons: Samuel Robin MD [...] HR - [Held on Transfer] phenol 1 [place] (CHLORASEPTIC) 1 [place] MUCOUS MEMBRANE (TOPICAL MOUTH AND THROAT) q [...] - Sennosid (more content not included)... Normal [facility] BRIEF OP NOTon 10-29-2023 BRIEF OP NOT HNO ID: [id number] Author: PA ALICEA MD Service: General Surgery Author Type: Resident Type: Brief Op Note Filed: 10/29/2023 11:47 Note Text: [facility] BRIEF OP NOTE LOG ID: [id number] SURGERY/PROCEDURE DATE: 10/29/2023 INCISION/PROCEDURE START TIME: 10:25 AM INCISION CLOSE/PROCEDURE END TIME: 11:40 AM SURGEON(S)/PROCEDURAL IST(S) AND AXLE POLISHER(S): Surgeon(s) and Role: * Samuel Robin MD [...] 29, 2023 TIME: 11:45 AM PAGER/CONTACT #: [facility] BRIEF OP NOT HNO ID: [id number] Author: DANTE CHERRY MD Service: General Surgery Author Type: Resident Type: Brief Op Note Filed: 10/29/2023 11:44 Note Text: BRIEF OPERATIVE / PROCEDURE NOTE LOG ID: [id number] SURGERY/PROCEDURE DATE: 10/29/2023 INCISION/PROCEDURE START TIME: 10:25 AM INCISION CLOSE/PROCEDURE END TIME: 11:40 AM SURGEON(S)/PROCEDURAL IST(S) AND AXLE POLISHER(S): Surgeon(s) and Role: * Samuel Robin MD [...] due to apparent sigmoid volvulus, reduced SIGNATURE: Danet Cherry MD PATIENT NAME: Johnny Devine DATE: October 29, 2023 TIME: 11:36 AM [facility] BRIEF OP NOT HNO ID: [id number] Author: PA ALICEA MD Service: General Surgery Author Type: Resident Type: Brief Op Note Filed: 10/29/2023 08:42 Note Text: Created in Error Normal [facility] Basic metabolic 2000 panelon 10-29-2023 Anion gap [Moles/Vol] 11 mmol/L Normal 9-18 [facility] Comment on above: Order Comment: Speci men Type: BLOOD SPECIMEN Ordering Facility: [facility] Address: [address] [place] [address] Performed By: #### 2 777-1, 53159-3, #### [facility] CLIA [id number] [address] [place] [address] [place] Calcium [Mass/Vol] 7.4 mg/dL Low 8.5-10.2 [facility] Comment on above: Order Comment: Speci men Type: BLOOD SPECIMEN Ordering Facility: [facility] Address: [address] [place] [address] Performed By: #### 2 777-1, , #### [facility] CLIA [id number] [address] [place] [address] [place] Chloride [Moles/Vol] 112 mmol/L High 97-105 [facility] Comment on above: Order Comment: Speci men Type: BLOOD SPECIMEN Ordering Facility: [facility] Address: [address] [place] [address] Performed By: #### 2 777-1, , #### [facility] CLIA [id number] [address] [place] [address] [place] CO2 [Moles/Vol] 21 mmol/L Low 22-30 [facility] Comment on above: Order Comment: Speci men Type: BLOOD SPECIMEN Ordering Facility: [facility] Address: [address] [place] [address] Performed By: #### 2 777-1, 01724-4, #### [facility] CLIA [id number] [address] [place], [place] [address] [place] Creatinine [Mass/Vol] 0.69 mg/dL Low 0.73-1.22 [facility] Comment on above: Order Comment: Speci men Type: BLOOD SPECIMEN Ordering Facility: [facility] Address: [address] [place] [address] Performed By: #### 2 777-1, 27412-7, #### [facility] CLIA [id number] [address] [place] [address] [place] Creatinine and Glomerular filtration rate.predicted panel (S/P/Bld) 127 mL/min/1.73m??? Normal >=60 [facility] Comment on above: Order Comment: Sana zuñiga Type: BLOOD SPECIMEN Ordering Facility: [facility] Address: [address] [place] [address] Result Comment: Lor mated Glomerular Filtration Rate [...] actual GFR. Performed By: #### 2 777-1, 60073-4, 99544-8 #### [facility] CLIA [id number] [address] [place] [address] [place] Glucose [Mass/Vol] 115 mg/dL High 74-99 [facility] Comment on above: Order Comment: Sana zuñiga Type: BLOOD SPECIMEN Ordering Facility: [facility] Address: [address] [place] [address] Result Comment: The [place] [employer] (ADA) provides guidance for cutoff [...] Standards of Medical Care in Diabetes 2016, [place] [employer]. Diabetes Care. 2016.39(Suppl 1). Performed By: #### 2 777-1, 06713-5, #### [facility] CLIA [id number] [address] [place] [address] [place] Potassium [Moles/Vol] 3.8 mmol/L Normal 3.7-5.1 [facility] Comment on above: Order Comment: Speci men Type: BLOOD SPECIMEN Ordering Facility: [facility] Address: [address] [place] [address] Performed By: #### 2 777-1, 24947-2, #### [facility] CLIA [id number] [address] [place] [address] [place] Sodium [Moles/Vol] 144 mmol/L Normal 136-144 [facility] Comment on above: Order Comment: Speci men Type: BLOOD SPECIMEN Ordering Facility: [facility] Address: [address] [place] [address] Performed By: #### 2 777-1, 18502-1, #### [facility] CLIA [id number] [address] [place] [address] [place] Urea nitrogen [Mass/Vol] 13 mg/dL Normal 9-24 [facility] Comment on above: Order Comment: Speci men Type: BLOOD SPECIMEN Ordering Facility: [facility] Address: [address] [place] [address] Performed By: #### 2 777-1, 52061-4, #### [facility] CLIA [id number] [address] [place], [place] [address] [place] CBC W Auto Differential pane l (Bld)on 10-29-2023 Basophils (Bld) [#/Vol] 10*3/uL Normal <0.11 [facility] Comment on above: Order Comment: Speci men Type: BLOOD SPECIMEN Ordering Facility: [facility] Address: [address] [place] [address] Performed By: #### 5 7021-8 #### [facility] CLIA [id number] [address] [place] [address] [place] Basophils/100 WBC (Bld) 0.1 % Normal [facility] Comment on above: Order Comment: Speci men Type: BLOOD SPECIMEN Ordering Facility: [facility] Address: [address] [place] [address] Performed By: #### 5 7021-8 #### [facility] CLIA [id number] [address] [place] [address] [place] Differential cell count method Nom (Bld) Auto Normal [facility] Comment on above: Order Comment: Speci men Type: BLOOD SPECIMEN Ordering Facility: [facility] Address: [address] [place] [address] Performed By: #### 5 7021-8 #### [facility] CLIA [id number] [address] [place] [address] [place] Eosinophils (Bld) [#/Vol] 10*3/uL Normal <0.46 [facility] Comment on above: Order Comment: Speci men Type: BLOOD SPECIMEN Ordering Facility: [facility] Address: [address] [place] [address] Performed By: #### 5 7021-8 #### [facility] CLIA [id number] [address] [place] [address] [place] Eosinophils/100 WBC (Bld) 0.1 % Normal [facility] Comment on above: Order Comment: Speci men Type: BLOOD SPECIMEN Ordering Facility: [facility] Address: [address] [place] [address] Performed By: #### 5 7021-8 #### [facility] CLIA [id number] [address] [place] [address] [place] Erythrocyte distribution width (RBC) [Ratio] 14.6 % Normal 11.5-15.0 [facility] Comment on above: Order Comment: Speci men Type: BLOOD SPECIMEN Ordering Facility: [facility] Address: [address] [place] [address] Performed By: #### 5 7021-8 #### [facility] CLIA [id number] [address] [place] [address] [place] Hematocrit (Bld) [Volume fraction] 33.0 % Low 39.0-51.0 [facility] Comment on above: Order Comment: Speci men Type: BLOOD SPECIMEN Ordering Facility: [facility] Address: [address] [place] [address] Performed By: #### 5 7021-8 #### [facility] CLIA [id number] [address] [place] [address] [place] Hemoglobin (Bld) [Mass/Vol] 10.5 g/dL Low 13.0-17.0 [facility] Comment on above: Order Comment: Speci men Type: BLOOD SPECIMEN Ordering Facility: [facility] Address: [address] [place] [address] Performed By: #### 5 7021-8 #### [facility] CLIA [id number] [address] [place] [address] [place] Immature granulocytes (Bld) [#/Vol] 0.05 10*3/uL Normal <0.10 [facility] Comment on above: Order Comment: Speci men Type: BLOOD SPECIMEN Ordering Facility: [facility] Address: [address] [place] [address] Performed By: #### 5 7021-8 #### [facility] CLIA [id number] [address] [place] [address] [place] Immature granulocytes/100 WBC (Bld) 0.4 % Normal [facility] Comment on above: Order Comment: Speci men Type: BLOOD SPECIMEN Ordering Facility: [facility] Address: [address] [place] [address] Performed By: #### 5 7021-8 #### [facility] CLIA [id number] [address] [place] [address] [place] Lymphocytes (Bld) [#/Vol] 1.25 10*3/uL Normal 1.00-4.00 [facility] Comment on above: Order Comment: Speci men Type: BLOOD SPECIMEN Ordering Facility: [facility] Address: [address] [place] [address] Performed By: #### 5 7021-8 #### [facility] CLIA [id number] [address] [place] [address] [place] Lymphocytes/100 WBC (Bld) 8.9 % Normal [facility] Comment on above: Order Comment: Speci men Type: BLOOD SPECIMEN Ordering Facility: [facility] Address: [address] [place] [address] Performed By: #### 5 7021-8 #### [facility] CLIA [id number] [address] [place] [address] [place] MCH (RBC) [Entitic mass] 26.9 pg Normal 26.0-34.0 [facility] Comment on above: Order Comment: Speci men Type: BLOOD SPECIMEN Ordering Facility: [facility] Address: [address] [place] [address] Performed By: #### 5 7021-8 #### [facility] CLIA [id number] [address] [place] [address] [place] MCHC (RBC) [Mass/Vol] 31.8 g/dL Normal 30.5-36.0 [facility] Comment on above: Order Comment: Speci men Type: BLOOD SPECIMEN Ordering Facility: [facility] Address: [address] [place] [address] Performed By: #### 5 7021-8 #### [facility] CLIA [id number] [address] [place] [address] [place] MCV (RBC) [Entitic vol] 84.6 fL Normal 80.0-100.0 [facility] Comment on above: Order Comment: Speci men Type: BLOOD SPECIMEN Ordering Facility: [facility] Address: [address] [place] [address] Performed By: #### 5 7021-8 #### [facility] CLIA [id number] [address] [place] [address] [place] Monocytes (Bld) [#/Vol] 1.50 10*3/uL High <0.87 [facility] Comment on above: Order Comment: Speci men Type: BLOOD SPECIMEN Ordering Facility: [facility] Address: [address] [place] [address] Performed By: #### 5 7021-8 #### [facility] CLIA [id number] [address] [place] [address] [place] Monocytes/100 WBC (Bld) 10.6 % Normal [facility] Comment on above: Order Comment: Speci men Type: BLOOD SPECIMEN Ordering Facility: [facility] Address: [address] [place] [address] Performed By: #### 5 7021-8 #### [facility] CLIA [id number] [address] [place] [address] [place] Neutrophils (Bld) [#/Vol] 11.26 10*3/uL High 1.45-7.50 [facility] Comment on above: Order Comment: Speci men Type: BLOOD SPECIMEN Ordering Facility: [facility] Address: [address] [place] [address] Performed By: #### 5 7021-8 #### [facility] CLIA [id number] [address] [place] [address] [place] Neutrophils/100 WBC (Bld) 79.9 % Normal [facility] Comment on above: Order Comment: Speci men Type: BLOOD SPECIMEN Ordering Facility: [facility] Address: [address] [place] [address] Performed By: #### 5 7021-8 #### [facility] CLIA [id number] [address] [place] [address] [place] Nucleated RBC (Bld) [#/Vol] 10*3/uL Normal <0.01 [facility] Comment on above: Order Comment: Speci men Type: BLOOD SPECIMEN Ordering Facility: [facility] Address: [address] [place] [address] Performed By: #### 5 7021-8 #### [facility] CLIA [id number] [address] [place] [address] [place] Nucleated RBC/100 WBC (Bld) [Ratio] 0.0 /100 WBC Normal [facility] Comment on above: Order Comment: Speci men Type: BLOOD SPECIMEN Ordering Facility: [facility] Address: [address] [place] [address] Performed By: #### 5 7021-8 #### [facility] CLIA [id number] [address] [place] [address] [place] Platelet mean volume (Bld) [Entitic vol] 9.4 fL Normal 9.0-12.7 [facility] Comment on above: Order Comment: Speci men Type: BLOOD SPECIMEN Ordering Facility: [facility] Address: [address] [place] [address] Performed By: #### 5 7021-8 #### [facility] CLIA [id number] [address] [place] [address] [place] Platelets (Bld) [#/Vol] 151 10*3/uL Normal 150-400 [facility] Comment on above: Order Comment: Speci men Type: BLOOD SPECIMEN Ordering Facility: [facility] Address: [address] [place] [address] Performed By: #### 5 7021-8 #### [facility] CLIA [id number] [address] [place] [address] [place] RBC (Bld) [#/Vol] 3.90 10*6/uL Low 4.20-6.00 [facility] Comment on above: Order Comment: Speci men Type: BLOOD SPECIMEN Ordering Facility: [facility] Address: [address] [place] [address] Performed By: #### 5 7021-8 #### [facility] CLIA [id number] [address] [place] [address] [place] WBC (Bld) [#/Vol] 14.09 10*3/uL High 3.70-11.00 [facility] Comment on above: Order Comment: Speci men Type: BLOOD SPECIMEN Ordering Facility: [facility] Address: [address] [place] [address] Performed By: #### 5 7021-8 #### [facility] CLIA [id number] [address] [place] [address] [place] CONFIRM BLOOD TYPEon 024 ABO A Normal [facility] Comment on above: Order Comment: Speci men Type: BLOOD SPECIMENOrdering Facility: [facility] Address: [address] [place] [address] Performed By: #### C ONABO ####[facility] BANKCLIA [id number] [place] [address] [place] Rh Nom (Bld) Positive Normal [facility] Comment on above: Order Comment: Speci men Type: BLOOD SPECIMENOrdering Facility: [facility] Address: [address] [place] [address] Performed By: #### C ONABO ####[facility] BLOOD BANKCLIA [id number] [place] [address] [place] Magnesium SerPl-mCncon 10-28 Magnesium [Mass/Vol] 1.8 mg/dL Normal 1.7-2.3 [facility] Comment on above: Order Comment: Speci men Type: BLOOD SPECIMEN Ordering Facility: [facility] Address: [address] [place] [address] Performed By: #### 2 777-1, 45183-0, 08977-2 #### [facility] CLIA [id number] [address] [place] [address] [place] [address] [place] NURSING PROGon 10-29-2023 NURSING PROG HNO ID: [id number] Author: BAILEY HUTSON RN Service: Nursing Author Type: Registered Nurse Type: Nursing Progress Note Filed: 10/29/2023 18:29 Note Text: 1827 [place] [phone] to notify of patient's current temp of 100.2 F. Will continue to monitor. Normal [facility] NURSING PROG HNO ID: [id number] Author: BAILEY HUTSON RN Service: Nursing Author Type: Registered Nurse Type: Nursing Progress Note Filed: 10/29/2023 17:35 Note Text: Nursing Progress: Topic: RESTRAINT NON-VIOLENT PATIENT NAME: Johnny Devine Patient Location: [place] [address] Room: [place] [address] The patient demonstrates Attempting to Remove Medical [...] the patient's safety: Bed in Low/Locked Position, Towboat Pilot/Sitter, Diversion Activities, IV/Feeding Bag/Pump Out of Vision, [...] TIME: 5:07 PM Bailey Hutson RN Normal [facility] NURSING PROG HNO ID: [id number] Author: BAILEY HUTSON RN Service: Nursing Author Type: Registered Nurse Type: Nursing Progress Note Filed: 10/29/2023 15:25 Note Text: 1518 [place] [phone] to request indwelling Haskins for incontinence and skin breakdown management. Will continue to monitor. 1523 Patient repeatedly attempt to remove NG tube despite the sitter at the bedside. Primary team notified with request for order for bilateral soft wrist restraint. Will continue to monitor. Normal [facility] NURSING PROG HNO ID: [id number] Author: OLIMPIA MAGALLON RN Service: Nursing Author Type: Registered Nurse Type: Nursing Progress Note Filed: 10/29/2023 13:37 Note Text: Pt resting quietly with patient advertising supervisor at bedside. Several attempts to reach for NG tube, patient relaxes and moves hand away from from drain if you say hand down Per brother John Paul. This has been effective. Pt resting quietly, no facial grimacing, posturing, or guarding. Vss, resp rate even and non labored. Pt has returned to presurgical baseline and is being transferred back to [facility] in stable condition. Opening eyes when name is called. Brother Delbert (guardian) updated prior to patient transfer. Normal [facility] OPERATIVE NOon 10-29-2023 OPERATIVE NO HNO ID: [id number] Author: SAMUEL ROBIN MD Service: General Surgery Author Type: Physician Type: Operative Report Filed: 10/29/2023 13:52 Note Text: OPERATIVE/PROCEDURE REPORT LOG ID: [id number] SURGERY/PROCEDURE DATE: 10/29/2023 INCISION/PROCEDURE START TIME: 10:25 AM INCISION CLOSE/PROCEDURE END TIME: 11:40 AM SURGEON(S)/PROCEDURAL IST(S) AND AXLE POLISHER(S): Surgeon(s) and Role: * Samuel Robin MD [...] for the entirety of the case. Normal [facility] Phosphate SerPl-mCncon 10-28 Phosphate [Mass/Vol] 2.3 mg/dL Low 2.7-4.8 [facility] Comment on above: Order Comment: Speci men Type: BLOOD SPECIMEN Ordering Facility: [facility] Address: [address] [place] [address] Performed By: #### 2 777-1, 81111-9, #### [facility] CLIA [id number] [address] [place] [address] [place] SEPSIS LACTATEon 10-29-2023 Lactate [Moles/Vol] 1.2 mmol/L Normal <=2.0 [facility] Comment on above: Order Comment: Speci men Type: BLOOD SPECIMENOrdering Facility: [facility] Address: [address] [place] [address] Performed By: #### S LACT ####[facility] [id number] [place] [address] [place] Order Comment: Speci men Type: BLOOD SPECIMEN Ordering Facility: [facility] Address: [address] [place] [address] Performed By: #### 2 777-1, 36105-5, #### [facility] CLIA [id number] [address] [place] [address] [place] Urinalysis complete panel (U )on 10-29-2023 Bacteria LM.HPF (Urine sed) [#/Area] Negative Normal Negative [facility] Comment on above: Order Comment: Speci men Type: BLOOD SPECIMEN Ordering Facility: [facility] Address: [address] [place] [address] Performed By: #### 2 777-1, 75815-9, #### [facility] CLIA [id number] [address] [place] [address] [place] Bilirubin Ql (U) Negative Normal Negative [facility] Comment on above: Order Comment: Speci men Type: BLOOD SPECIMEN Ordering Facility: [facility] Address: [address] [place] [address] Performed By: #### 2 777-1, , #### [facility] CLIA [id number] [address] [place] [address] [place] Clarity (Unsp spec) Clear Normal Clear [facility] Comment on above: Order Comment: Speci men Type: BLOOD SPECIMEN Ordering Facility: [facility] Address: [address] [place] [address] Performed By: #### 2 777-1, , #### [facility] CLIA [id number] [address] [place] [address] [place] Color (U) Yellow Normal Yellow [facility] Comment on above: Order Comment: Speci men Type: BLOOD SPECIMEN Ordering Facility: [facility] Address: [address] [place] [address] Performed By: #### 2 777-1, 45119-5, #### [facility] CLIA [id number] [address] [place] [address] [place] Epithelial cells LM.HPF (Urine sed) [#/Area] None Seen Normal [facility] Comment on above: Order Comment: Speci men Type: BLOOD SPECIMEN Ordering Facility: [facility] Address: [address] [place] [address] Performed By: #### 2 777-1, 34203-2, #### [facility] CLIA [id number] [address] [place] [address] [place] Glucose Test strip (U) [Mass/Vol] Negative Normal Negative [facility] Comment on above: Order Comment: Speci men Type: BLOOD SPECIMEN Ordering Facility: [facility] Address: [address] [place] [address] Performed By: #### 2 777-1, , #### [facility] CLIA [id number] [address] [place] [address] [place] Hemoglobin Ql (U) 2+ Abnormal Negative [facility] Comment on above: Order Comment: Speci men Type: BLOOD SPECIMEN Ordering Facility: [facility] Address: [address] [place] [address] Performed By: #### 2 777-1, , #### [facility] CLIA [id number] [address] [place] [address] [place] Hyaline casts (Urine sed) [#/Area] 0 /[LPF] Normal 0 /LPF [facility] Comment on above: Order Comment: Speci men Type: BLOOD SPECIMEN Ordering Facility: [facility] Address: [address] [place] [address] Performed By: #### 2 777-1, , #### [facility] CLIA [id number] [address] [place] [address] [place] Ketones Ql (U) Negative Normal Negative [facility] Comment on above: Order Comment: Speci men Type: BLOOD SPECIMEN Ordering Facility: [facility] Address: [address] [place] [address] Performed By: #### 2 777-1, 35987-8, #### [facility] CLIA [id number] [address] [place] [address] [place] Leukocyte esterase Test strip Ql (U) Negative Normal Negative [facility] Comment on above: Order Comment: Speci men Type: BLOOD SPECIMEN Ordering Facility: [facility] Address: [address] [place] [address] Performed By: #### 2 777-1, 16307-4, #### [facility] CLIA [id number] [address] [place] [address] [place] Nitrite Ql (U) Negative Normal Negative [facility] Comment on above: Order Comment: Speci men Type: BLOOD SPECIMEN Ordering Facility: [facility] Address: [address] [place] [address] Performed By: #### 2 777-1, 56962-7, #### [facility] CLIA [id number] [address] [place] [address] [place] pH (U) 6.5 [pH] Normal <8.5 [facility] Comment on above: Order Comment: Speci men Type: BLOOD SPECIMEN Ordering Facility: [facility] Address: [address] [place] [address] Performed By: #### 2 777-1, 56640-4, #### [facility] CLIA [id number] [address] [place] [address] [place] Protein (U) [Mass/Vol] Trace Abnormal Negative [facility] Comment on above: Order Comment: Speci men Type: BLOOD SPECIMEN Ordering Facility: [facility] Address: [address] [place] [address] Performed By: #### 2 777-1, 00353-4, #### [facility] CLIA [id number] [address] [place] [address] [place] RBC LM.HPF (Urine sed) [#/Area] 6-10 /HPF Abnormal 0-2 /HPF [facility] Comment on above: Order Comment: Speci men Type: BLOOD SPECIMEN Ordering Facility: [facility] Address: [address] [place] [address] Performed By: #### 2 777-1, 61690-0, #### [facility] CLIA [id number] [address] [place] [address] [place] Specific gravity (U) [Rel density] 1.021 Normal 1.005-1.030 [facility] Comment on above: Order Comment: Speci men Type: BLOOD SPECIMEN Ordering Facility: [facility] Address: [address] [place] [address] Performed By: #### 2 777-1, 81046-5, #### [facility] CLIA [id number] [address] [place] [address] [place] Urobilinogen Ql (U) 0.2 EU/dL Normal 0.2-1.0 EU/dL [facility] Comment on above: Order Comment: Speci men Type: BLOOD SPECIMEN Ordering Facility: [facility] Address: [address] [place] [address] Performed By: #### 2 777-1, , #### [facility] CLIA [id number] [address] [place] [address] [place] WBC LM.HPF (Urine sed) [#/Area] 0-5 /HPF Normal 0-5 /HPF [facility] Comment on above: Order Comment: Speci men Type: BLOOD SPECIMEN Ordering Facility: [facility] Address: [address] [place] [address] Performed By: #### 2 777-1, 86807-7, #### [facility] CLIA [id number] [address] [place] [address] [place] XR CHEST 1V [...] are unremarkable. Other: . IMPRESSION: See result. 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: SUSI Transcribe Date/Time: Oct 29 2023 12:20A Dictated by : SHEA WORTHY MD This examination was interpreted and the report reviewed and electronically signed by: SHEA WORTHY MD on Oct 29 2023 12:22AM EST [id number] Normal [facility] aPTT PPPon 10-29-2023 aPTT Coag (PPP) [Time] 26.3 s Normal 23.0-32.4 [facility] Comment on above: Order Comment: Speci men Type: BLOOD SPECIMEN Ordering Facility: [facility] Address: [address] [place] [address] Performed By: #### 2 777-1, 36583-7, #### [facility] CLIA [id number] [address] [place] [address] [place] Basic metabolic 2000 panelon 10-28-2023 Anion gap [Moles/Vol] 12 mmol/L Normal 9-18 [facility] Comment on above: Order Comment: Speci men Type: BLOOD SPECIMEN Ordering Facility: [facility] Address: [address] [place] [address] Performed By: #### 2 777-1, 14816-5, #### [facility] CLIA [id number] [address] [place] [address] [place] Calcium [Mass/Vol] 7.8 mg/dL Low 8.5-10.2 [facility] Comment on above: Order Comment: Speci men Type: BLOOD SPECIMEN Ordering Facility: [facility] Address: [address] [place] [address] Performed By: #### 2 777-1, 67889-5, #### [facility] CLIA [id number] [address] [place] [address] [place] Chloride [Moles/Vol] 110 mmol/L High 97-105 [facility] Comment on above: Order Comment: Speci men Type: BLOOD SPECIMEN Ordering Facility: [facility] Address: [address] [place] [address] Performed By: #### 2 777-1, 83091-0, #### [facility] CLIA [id number] [address] [place] [address] [place] CO2 [Moles/Vol] 15 mmol/L Low 22-30 [facility] Comment on above: Order Comment: Speci men Type: BLOOD SPECIMEN Ordering Facility: [facility] Address: [address] [place] [address] Performed By: #### 2 777-1, 58830-2, #### [facility] CLIA [id number] [address] [place] [address] [place] Creatinine [Mass/Vol] 0.72 mg/dL Low 0.73-1.22 [facility] Comment on above: Order Comment: Speci men Type: BLOOD SPECIMEN Ordering Facility: [facility] Address: [address] [place] [address] Performed By: #### 2 777-1, 44162-3, #### [facility] CLIA [id number] [address] [place] [address] [place] [facility] Creatinine and Glomerular filtration rate.predicted panel (S/P/Bld) 125 mL/min/1.73m??? Normal >=60 [facility] Comment on above: Order Comment: Sana zuñiga Type: BLOOD SPECIMEN Ordering Facility: [facility] Address: [address] [place] [address] Result Comment: Lor mated Glomerular Filtration Rate [...] actual GFR. Performed By: #### 2 777-1, 14303-9, #### [facility] CLIA [id number] [address] [place] [address] [place] Glucose [Mass/Vol] 116 mg/dL High 74-99 [facility] Comment on above: Order Comment: Sana zuñiga Type: BLOOD SPECIMEN Ordering Facility: [facility] Address: [address] [place] [address] Result Comment: The [place] [employer] (ADA) provides guidance for cutoff [...] Standards of Medical Care in Diabetes 2016, [place] [employer]. Diabetes Care. 2016.39(Suppl 1). Performed By: #### 2 777-1, 39663-0, #### [facility] CLIA [id number] [address] [place] [address] [place] Potassium [Moles/Vol] 3.9 mmol/L Normal 3.7-5.1 [facility] Comment on above: Order Comment: Speci men Type: BLOOD SPECIMEN Ordering Facility: [facility] Address: [address] [place] [address] Performed By: #### 2 777-1, 02472-8, #### [facility] CLIA [id number] [address] [place] [address] [place] Sodium [Moles/Vol] 137 mmol/L Normal 136-144 [facility] Comment on above: Order Comment: Speci men Type: BLOOD SPECIMEN Ordering Facility: [facility] Address: [address] [place] [address] Performed By: #### 2 777-1, 74337-9, #### [facility] CLIA [id number] [address] [place] [address] [place] Urea nitrogen [Mass/Vol] 17 mg/dL Normal 9-24 [facility] Comment on above: Order Comment: Speci men Type: BLOOD SPECIMEN Ordering Facility: [facility] Address: [address] [place] [address] Performed By: #### 2 777-1, 85196-9, #### [facility] CLIA [id number] [address] [place] [address] [place] CBC W Auto Differential pane l (Bld)on 10-28-2023 Basophils (Bld) [#/Vol] 10*3/uL Normal <0.11 [facility] Comment on above: Order Comment: Speci men Type: BLOOD SPECIMEN Ordering Facility: [facility] Address: [address] [place] [address] Performed By: #### 2 777-1, 75213-0, #### [facility] CLIA [id number] [address] [place] [address] [place] Basophils/100 WBC (Bld) 0.1 % Normal [facility] Comment on above: Order Comment: Speci men Type: BLOOD SPECIMEN Ordering Facility: [facility] Address: [address] [place] [address] Performed By: #### 2 777-1, 89922-6, #### [facility] CLIA [id number] [address] [place] [address] [place] Differential cell count method Nom (Bld) Auto Normal [facility] Comment on above: Order Comment: Speci men Type: BLOOD SPECIMEN Ordering Facility: [facility] Address: [address] [place] [address] Performed By: #### 2 777-1, , #### [facility] CLIA [id number] [address] [place] [address] [place] Eosinophils (Bld) [#/Vol] 10*3/uL Normal <0.46 [facility] Comment on above: Order Comment: Speci men Type: BLOOD SPECIMEN Ordering Facility: [facility] Address: [address] [place] [address] Performed By: #### 2 777-1, , #### [facility] CLIA [id number] [address] [place] [address] [place] Eosinophils/100 WBC (Bld) 0.0 % Normal [facility] Comment on above: Order Comment: Speci men Type: BLOOD SPECIMEN Ordering Facility: [facility] Address: [address] [place] [address] Performed By: #### 2 777-1, , #### [facility] CLIA [id number] [address] [place] [address] [place] Erythrocyte distribution width (RBC) [Ratio] 14.4 % Normal 11.5-15.0 [facility] Comment on above: Order Comment: Speci men Type: BLOOD SPECIMEN Ordering Facility: [facility] Address: [address] [place] [address] Performed By: #### 2 777-1, 55410-7, #### [facility] CLIA [id number] [address] [place], [place] [address] [place] Hematocrit (Bld) [Volume fraction] 38.3 % Low 39.0-51.0 [facility] Comment on above: Order Comment: Speci men Type: BLOOD SPECIMEN Ordering Facility: [facility] Address: [address] [place] [address] Performed By: #### 2 777-1, 52066-2, #### [facility] CLIA [id number] [address] [place] [address] [place] Hemoglobin (Bld) [Mass/Vol] 12.0 g/dL Low 13.0-17.0 [facility] Comment on above: Order Comment: Speci men Type: BLOOD SPECIMEN Ordering Facility: [facility] Address: [address] [place] [address] Performed By: #### 2 777-1, 89817-1, #### [facility] CLIA [id number] [address] [place] [address] [place] Immature granulocytes (Bld) [#/Vol] 0.08 10*3/uL Normal <0.10 [facility] Comment on above: Order Comment: Speci men Type: BLOOD SPECIMEN Ordering Facility: [facility] Address: [address] [place], [place] [address] Performed By: #### 2 777-1, 60608-0, #### [facility] CLIA [id number] [address] [place] [address] [place] Immature granulocytes/100 WBC (Bld) 0.6 % Normal [facility] Comment on above: Order Comment: Speci men Type: BLOOD SPECIMEN Ordering Facility: [facility] Address: [address] [place] [address] Performed By: #### 2 777-1, 38018-6, #### [facility] CLIA [id number] [address] [place] [address] [place] Lymphocytes (Bld) [#/Vol] 1.19 10*3/uL Normal 1.00-4.00 [facility] Comment on above: Order Comment: Speci men Type: BLOOD SPECIMEN Ordering Facility: [facility] Address: [address] [place] [address] Performed By: #### 2 777-1, 03817-1, #### [facility] CLIA [id number] [address] [place] [address] [place] Lymphocytes/100 WBC (Bld) 8.2 % Normal [facility] Comment on above: Order Comment: Speci men Type: BLOOD SPECIMEN Ordering Facility: [facility] Address: [address] [place] [address] Performed By: #### 2 777-1, 11697-8, #### [facility] CLIA [id number] [address] [place] [address] [place] MCH (RBC) [Entitic mass] 26.5 pg Normal 26.0-34.0 [facility] Comment on above: Order Comment: Speci men Type: BLOOD SPECIMEN Ordering Facility: [facility] Address: [address] [place] [address] Performed By: #### 2 777-1, 66544-0, #### [facility] CLIA [id number] [address] [place] [address] [place] MCHC (RBC) [Mass/Vol] 31.3 g/dL Normal 30.5-36.0 [facility] Comment on above: Order Comment: Speci men Type: BLOOD SPECIMEN Ordering Facility: [facility] Address: [address] [place] [address] Performed By: #### 2 777-1, 27784-0, #### [facility] CLIA [id number] [address] [place] [address] [place] MCV (RBC) [Entitic vol] 84.5 fL Normal 80.0-100.0 [facility] Comment on above: Order Comment: Speci men Type: BLOOD SPECIMEN Ordering Facility: [facility] Address: [address] [place] [address] Performed By: #### 2 777-1, 11443-7, #### [facility] CLIA [id number] [address] [place] [address] [place] Monocytes (Bld) [#/Vol] 1.48 10*3/uL High <0.87 [facility] Comment on above: Order Comment: Speci men Type: BLOOD SPECIMEN Ordering Facility: [facility] Address: [address] [place] [address] Performed By: #### 2 777-1, 66658-0, #### [facility] CLIA [id number] [address] [place] [address] [place] Monocytes/100 WBC (Bld) 10.2 % Normal [facility] Comment on above: Order Comment: Speci men Type: BLOOD SPECIMEN Ordering Facility: [facility] Address: [address] [place] [address] Performed By: #### 2 777-1, 60280-5, #### [facility] CLIA [id number] [address] [place] [address] [place] Neutrophils (Bld) [#/Vol] 11.69 10*3/uL High 1.45-7.50 [facility] Comment on above: Order Comment: Speci men Type: BLOOD SPECIMEN Ordering Facility: [facility] Address: [address] [place], [place] [address] Performed By: #### 2 777-1, 32177-1, #### [facility] CLIA [id number] [address] [place] [address] [place] Neutrophils/100 WBC (Bld) 80.9 % Normal [facility] Comment on above: Order Comment: Speci men Type: BLOOD SPECIMEN Ordering Facility: [facility] Address: [address] [place] [address] Performed By: #### 2 777-1, 53645-6, #### [facility] CLIA [id number] [address] [place] [address] [place] Nucleated RBC (Bld) [#/Vol] 10*3/uL Normal <0.01 [facility] Comment on above: Order Comment: Speci men Type: BLOOD SPECIMEN Ordering Facility: [facility] Address: [address] [place] [address] Performed By: #### 2 777-1, 00399-4, #### [facility] CLIA [id number] [address] [place] [address] [place] Nucleated RBC/100 WBC (Bld) [Ratio] 0.0 /100 WBC Normal [facility] Comment on above: Order Comment: Speci men Type: BLOOD SPECIMEN Ordering Facility: [facility] Address: [address] [place] [address] Performed By: #### 2 777-1, 93710-4, #### [facility] CLIA [id number] [address] [place] [address] [place] Platelet mean volume (Bld) [Entitic vol] 9.3 fL Normal 9.0-12.7 [facility] Comment on above: Order Comment: Speci men Type: BLOOD SPECIMEN Ordering Facility: [facility] Address: [address] [place] [address] Performed By: #### 2 777-1, 20809-9, #### [facility] CLIA [id number] [address] [place] [address] [place] Platelets (Bld) [#/Vol] 180 10*3/uL Normal 150-400 [facility] Comment on above: Order Comment: Speci men Type: BLOOD SPECIMEN Ordering Facility: [facility] Address: [address] [place] [address] Performed By: #### 2 777-1, 28578-3, #### [facility] CLIA [id number] [address] [place] [address] [place] RBC (Bld) [#/Vol] 4.53 10*6/uL Normal 4.20-6.00 [facility] Comment on above: Order Comment: Speci men Type: BLOOD SPECIMEN Ordering Facility: [facility] Address: [address] [place] [address] Performed By: #### 2 777-1, 87328-3, #### [facility] [facility] CLIA [id number] [address] [place] [address] [place] WBC (Bld) [#/Vol] 14.46 10*3/uL High 3.70-11.00 [facility] Comment on above: Order Comment: Speci men Type: BLOOD SPECIMEN Ordering Facility: [facility] Address: [address] [place] [address] Performed By: #### 2 777-1, 57029-5, #### [facility] CLIA [id number] [address] [place] [address] [place] HISTORY PHYSICALon HISTORY PHYSICAL HNO ID: [id number] Author: SAMUEL ROBIN MD Service: General Surgery [...] No a (more content not included)... Normal [facility] Magnesium SerPl-mCncon 10-27 Magnesium [Mass/Vol] 1.8 mg/dL Normal 1.7-2.3 [facility] Comment on above: Order Comment: Sana zuñiga Type: BLOOD SPECIMEN Ordering Facility: [facility] Address: [address] [place] [address] Performed By: #### 2 777-1, 08650-2, 82907-0 #### [facility] CLIA [id number] [address] [place] [address] [place] PT panel Coag (PPP)on 2023 INR Coag (PPP) [Relative time] 1.2 {INR} Normal 0.9-1.3 [facility] Comment on above: Order Comment: Sana zuñiga Type: BLOOD SPECIMEN Ordering Facility: [facility] Address: [address] [place] [address] Result Comment: Winnie min K Antagonist (VKA) Therapeutic Range: INR 2 to 3 (Target INR of 2.5) Note: For patients treated with VKA drugs, such as warfarin, the [place] [employer] 2012 Guideline recommends [...] Chest 2012, 141:7S-47S Jonny RA, et al. [facility] 2017, 70: 252-289 Performed By: #### 2 777-1, 54597-0, #### [facility] CLIA [id number] [address] [place] [address] [place] PT Coag (PPP) [Time] 12.3 s Normal 9.7-13.0 [facility] Comment on above: Order Comment: Speci men Type: BLOOD SPECIMEN Ordering Facility: [facility] Address: [address] [place] [address] Performed By: #### 2 777-1, 01602-3, #### [facility] CLIA [id number] [address] [place] [address] [place] Phosphate SerPl-mCncon 10-27 Phosphate [Mass/Vol] 3.2 mg/dL Normal 2.7-4.8 [facility] Comment on above: Order Comment: Akbari men Type: BLOOD SPECIMEN Ordering Facility: [facility] Address: [address] [place] [address] Performed By: #### 2 777-1, 64638-2, #### [facility] CLIA [id number] [address] [place] [address] [place] SEPSIS LACTATEon 10-28-2023 Lactate [Moles/Vol] 2.0 mmol/L Normal <=2.0 [facility] Comment on above: Order Comment: Speci men Type: BLOOD SPECIMENOrdering Facility: [facility] Address: [address] [place] [address] Performed By: #### S LACT ####[facility] [id number] [place] [address] [place] TYPE + SCREENon 10-28-2023 ABO A Normal [facility] Comment on above: Order Comment: Speci men Type: BLOOD SPECIMEN Ordering Facility: [facility] Address: [address] [place] [address] Performed By: #### 2 4321-2, , 2776-08 #### [facility] CLIA [id number] [address] [place] [address] [place] HISTORICAL AB SCR STATUS Negative Normal [facility] Comment on above: Order Comment: Speci men Type: BLOOD SPECIMEN Ordering Facility: [facility] Address: [address] [place] [address] Performed By: #### 2 4321-2, , 2776-08 #### [facility] CLIA [id number] [address] [place] [address] [place] Rh Nom (Bld) Positive Normal [facility] Comment on above: Order Comment: Speci men Type: BLOOD SPECIMEN Ordering Facility: [facility] Address: [address] [place] [address] Performed By: #### 2 4321-2, , 2776-08 #### [facility] CLIA [id number] [address] [place] [address] [place] TYPE AND SCREEN EXPIRATION 10/31/2023 23:59 Normal [facility] Comment on above: Order Comment: Speci men Type: BLOOD SPECIMEN Ordering Facility: [facility] Address: [address] [place] [address] Performed By: #### 2 4321-2, , 1 #### [facility] CLIA [id number] [address] [place], [place] [address] [address] [place] XR ABDOMEN 1V [...] right lower quadrant on the outside CT). 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: PSCB Transcribe Date/Time: Oct 28 2023 5:30P Dictated by : WALTER BURGER MD This examination was interpreted and the report reviewed and electronically signed by: WALTER BURGER MD on Oct 28 2023 5:47PM EST [id number] Normal [facility] Basic metabolic 2000 panelOr dered By: Vandana cAe on 07-16-2023 Anion gap [Moles/Vol] 15 mmol/L [...] Inclusion of Race in Diagnosing Kidney Disease. [place] Journal of Kidney Diseases 2021;79(2):268-88.e1. 2. N Engl J Med 2020 Vol. 385 Issue 19 Pages 3764-9474 Glucose [Mass/Vol] 84 mg/dL 74 - 109 [...] (Bld) 36.8 % 24.0 - 44.0 % [facility] MCH (RBC) [Entitic mass] 27.4 pg 26.0 - 34.0 pg [facility] MCHC (RBC) [Mass/Vol] 32.8 g/dL 32.0 - 35.9 g/dL [facility] MCV (RBC) [Entitic vol] 84 fL 80 - 100 fL [facility] Monocytes (Bld) [#/Vol] 0.80 10*3/uL 0.20 - 1.00 K/uL [facility] Monocytes/100 WBC (Bld) 8.9 % 2.0 - 11.0 % [facility] Neutrophils (Bld) [#/Vol] 4.40 10*3/uL 1.50 - 8.00 K/uL [facility] Neutrophils/100 WBC (Bld) 50.6 % 31.0 - 76.0 % [facility] Nucleated RBC (Bld) [#/Vol] 0.01 10*3/uL [facility] Nucleated RBC/100 WBC (Bld) [Ratio] 0.1 % [facility] Platelet mean volume (Bld) [Entitic vol] 9.1 fL 7.5 - 11.2 fL [facility] Platelets (Bld) [#/Vol] [facility] Comment on above: Platelet cannot be q uantified due to the presence of platelet clumps. Platelet estimate appears normal. RBC (Bld) [#/Vol] 4.59 10*6/uL [facility] WBC (Bld) [#/Vol] 8.6 10*3/uL 4.5 - 11.5 K/uL [facility] CT Head WO contrastOrdered B y: David Kay on 07-16-2023 CT DLP 1126.71 (mGy.cm) [facility] Work Phone: CT Series HEAD W/O,HEAD W/O [facility] Work Phone: CTDI VOL 0.34 (mGy),47.31 (mGy) [facility] Work Phone: PHANTOM TYPE IEC Head Dosimetry Phantom,IEC Head Dosimetry Phantom [facility] Work Phone: [facility] Work Phone: CT Head WO contraston [...] in the left caudate nucleus. MACRO: None [facility] Radiology Study observation (narrative) [facility] MAGNESIUMon 07-16-2023 Interpretation and review of laboratory results Normal [facility] Magnesium [Mass/Vol] 2.1 mg/dL 1.6 - 2 .8 mg/dL [facility] Lithiumon 07-06-2023 [place] [Moles/Vol] 0.9 mmol/L Invalid Interpretation Code 0.5-1.[address] [facility] Comment on above: Result Comment: A co ncentration of 0.5-0.8 mmol/L is advised for long-term use; concentrations of up to 1.2 mmol/L may be necessary during acute treatment. Detection Limit = 0.1 <0.1 indicates None Detected Performed at: [address] [id number] PhD Agata Narayan Performed By: #### 2 903594, 8011401, 7023942, 8140506, 376928179, 6542450, 3193788, 21546731, 8077184 ####[facility] [address] [place] [address] CBC w/Indiceson 07-04-2023 Erythrocyte distribution width (RBC) [Ratio] 13.8 % Normal 10.9-14.[address] [facility] Comment on above: Performed By: #### 2 048700, 9979980, 1571211, 1300488, 758048045, 6534281, 9671694, 25472750, 7956554 #### [facility] [address] [place] [address] Hematocrit (Bld) [Volume fraction] 38.1 % Normal 37.7-49.[address] [facility] Comment on above: Performed By: #### 2 525108, 5645268, 0256634, 5456373, 433622314, 4057602, 2203824, 40687702, 0884058 #### [facility] [address] [place] [address] Hemoglobin (Bld) [Mass/Vol] 12.7 g/dL Low 13.5-17.[address] [facility] Comment on above: Performed By: #### 2 920744, 6403088, 4371607, 4639785, 354475135, 4346138, 9578306, 19515762, 1381207 #### [facility] [address] [place] [address] MCH (RBC) [Entitic mass] 27.6 pg Normal 27.0-34.[address] [facility] Comment on above: Performed By: #### 2 763916, 1317573, 4966422, 9599991, 333154605, 3296768, 3953271, 69562947, 0099767 #### [facility] [address] [place] [address] MCHC (RBC) [Mass/Vol] 33.3 g/dL Normal 31.4-36.0 [facility] Comment on above: Performed By: #### 2 413746, 8571763, 6754860, 7513006, 652921441, 4126097, 3988278, 22173789, 4316423 #### [facility] [address] [place] [address] MCV (RBC) [Entitic vol] 83.0 fL Normal 80.0-100.[address] [facility] Comment on above: Performed By: #### 2 810677, 8597929, 9834135, 9465253, 455552211, 5697723, 2321418, 06930290, 7962760 #### [facility] [address] [place] [address] Platelet mean volume (Bld) [Entitic vol] 8.5 fL Normal 6.4-10.[address] [facility] Comment on above: Performed By: #### 2 869153, 7342944, 7931810, 7513279, 369864956, 1465221, 0415587, 61914265, 4548066 #### [facility] [address] [place] [address] Platelets (Bld) [#/Vol] 175.0 E9/L Normal 150.0-500.[address] [facility] Comment on above: Performed By: #### 2 721986, 0284729, 6796801, 2794223, 069142478, 0962101, 9259055, 88339469, 9295661 #### [facility] [address] [place] [address] RBC (Bld) [#/Vol] 4.6 E12/L Normal 4.3-5.[address] [facility] Comment on above: Performed By: #### 2 258107, 1579601, 3828366, 3121126, 167919110, 0196911, 5506924, 29002535, 9906915 #### [facility] [address] [place] [address] WBC corrected for nucl RBC Auto (Bld) [#/Vol] 5.9 E9/L Normal 4.0-11.[address] [facility] Comment on above: Performed By: #### 2 729616, 5468177, 9724897, 1016790, 852533780, 6475796, 6453681, 00489309, 2269206 #### [facility] [address] [place] [address] CHEMISTRYOrdered By: SYSTEM SYSTEM on 07-04-2023 25-hydroxyvitamin D3 [Mass/Vol] 33.7 ng/mL Normal 30.0 - 100.0 ng/mL [facility] Remisol Comment on above: Interpretive Data: Vitamin D deficiency has been defined as a level of serum 25-OH vitamin D less than 20 ng/mL (1,2) by the [place] [employer] and an Endocrine Society practice guideline. The Endocrine Society further defined vitamin D insufficiency as a level between 21 and 29 ng/mL (2). 1. IOM ([place] [employer]). 2010. Dietary reference intakes for [...] mL/min/1.73 m2 Normal >=59mL/min/1 .73 m2 [facility] Chem S Comment on above: Interpretive Data: [...] 07-04-2023 Albumin [Mass/Vol] 3.7 g/dL Normal 3.3-5.[address] [facility] Comment on above: Performed By: #### 2 592709, 7992047, 9252698, 9699514, 483576278, 0034030, 2959974, 57802379, 9825968 #### [facility] [address] [place] [address] Albumin/Globulin (S) [Mass conc ratio] 1.0 Low 1.1-2.[address] [facility] Comment on above: Performed By: #### 2 137717, 2924168, 1303150, 8506711, 329074492, 5818556, 7088226, 04062385, 6862172 #### [facility] [address] [place] [address] ALP [Catalytic activity/Vol] 37 Int._Unit/L Normal 21-[address] [facility] Comment on above: Performed By: #### 2 485345, 8823635, 2395717, 2197085, 390197371, 7535679, 9941206, 04688840, 1951184 #### [facility] [address] [place] [address] ALT No additional P-5'-P [Catalytic activity/Vol] 15 Int._Unit/L Normal 6-[address] [facility] Comment on above: Performed By: #### 2 138817, 5059054, 9574303, 7862929, 938643698, 5542536, 5800083, 08024027, 8988731 #### [facility] [address] [place] [address] Anion gap [Moles/Vol] 12 mmol/L Normal 6-16 [facility] Comment on above: Performed By: #### 2 895639, 3607692, 5387385, 6844849, 267733590, 6821925, 6658145, 16782197, 1205921 #### [facility] [address] [place] [address] AST [Catalytic activity/Vol] 22 Int._Unit/L Normal 5-[address] [facility] Comment on above: Performed By: #### 2 249527, 8320949, 5450845, 5285317, 524401905, 3012077, 5507564, 35251940, 3474464 #### [facility] [address] [place] [address] Bilirubin [Mass/Vol] 0.1 mg/dL Normal 0.0-1.1 [facility] Comment on above: Performed By: #### 2 064444, 7115794, 0819694, 0178364, 713062894, 1464661, 3203982, 74974434, 2506808 #### [facility] [address] [place] [address] Calcium [Mass/Vol] 9.7 mg/dL Normal 8.9-11.[address] [facility] Comment on above: Performed By: #### 2 656440, 0366271, 3790223, 8521003, 542811452, 0433471, 4715146, 61938263, 2601122 #### [facility] [address] [place] [address] Chloride [Moles/Vol] 108 mmol/L Normal 101-111 [facility] Comment on above: Performed By: #### 2 434974, 2191168, 5242476, 0912369, 251575753, 4844393, 9647997, 10575627, 9755819 #### [facility] [address] [place] [address] CO2 [Moles/Vol] 23 mmol/L Normal 21-31 [facility] Comment on above: Performed By: #### 2 746063, 8143052, 4383214, 9675514, 618997163, 2378483, 3579392, 68825452, 7316557 #### [facility] [address] [place] [address] Creatinine [Mass/Vol] 0.9 mg/dL Normal 0.5-1.3 [facility] Comment on above: Performed By: #### 2 404728, 0283170, 3578775, 4504423, 905244829, 3355774, 8256840, 94485675, 5720967 #### [facility] [address] [place] [address] Globulin (S) [Mass/Vol] 3.8 g/dL Normal 1.4-4.[address] [facility] Comment on above: Performed By: #### 2 175397, 1342485, 0959553, 9778984, 588014980, 0276230, 7263775, 07409099, 1857497 #### [facility] [address] [place] [address] Glucose [Mass/Vol] 86 mg/dL Normal 55-[address] [facility] Comment on above: Result Comment: If t his glucose result represents a fasting glucose, interpretation should refer to the following reference range: 55-99 mg/dL Performed By: #### 2 988460, 4584694, 9469426, 8669865, 081178858, 6113599, 4162447, 14514075, 3934047 #### [facility] [address] [place] [address] Potassium [Moles/Vol] 4.3 mmol/L Normal 3.5-5.3 [facility] Comment on above: Performed By: #### 2 063403, 5340824, 9188360, 7962441, 847374218, 8897853, 4347326, 66798466, 9450098 #### [facility] [address] [place] [address] Protein [Mass/Vol] 7.5 g/dL Normal 6.0-7.[address] [facility] Comment on above: Performed By: #### 2 860824, 4578172, 7226832, 3649543, 903876573, 0526777, 8883540, 07202630, 0678079 #### [facility] [address] [place] [address] Sodium [Moles/Vol] 139 mmol/L Normal 135-[address] [facility] Comment on above: Performed By: #### 2 605645, 3478054, 4114818, 0388507, 051986635, 9337682, 7571808, 31647135, 3116421 #### [facility] [address] [place] [address] Urea nitrogen [Mass/Vol] 20 mg/dL Normal 5-[address] [facility] Comment on above: Performed By: #### 2 080295, 2478289, 1726511, 0427305, 170197776, 6929454, 1182056, 42009411, 5397226 #### [facility] [address] [place] [address] Urea nitrogen/Creatinine [Mass ratio] 22 No Units High 10-[address] [facility] Comment on above: Performed By: #### 2 128875, 4524161, 5572186, 5133874, 680458439, 5651605, 2262903, 30345046, 4717123 #### [facility] [address] [place] [address] Free T4on 07-04-2023 Free T4 [Mass/Vol] 0.70 ng/dL Normal 0.58-1.[address] [facility] Comment on above: Performed By: #### 2 938526, 7110488, 7423886, 7414992, 535413200, 8982183, 6955717, 00561039, 4927801 #### [facility] [address] [place] [address] HEMATOLOGYOrdered By: Jersey Arnett on 07-04-2023 Erythrocyte [...] E9/L Normal 4.0 - 11.0 E9/L [facility] HemeAutoSS Lipid Panelon 07-04-2023 Cholesterol [Mass/Vol] 145 mg/dL Normal 120-[address] [facility] Comment on above: Performed By: #### 2 268772, 0154801, 4038481, 4121459, 469975222, 1112530, 7495541, 46263383, 1342524 #### [facility] [address] [place] [address] Cholesterol in HDL [Mass/Vol] 40 mg/dL Invalid Interpretation Code [facility] Comment on above: Result Comment: HDL > or equal to 60 mg/dL: Low cardiovascular risk HDL < 40 mg/dL : High cardiovascular risk Performed By: #### 2 338330, 0069530, 0431749, 0317355, 635143803, 9202374, 0121023, 50872472, 3218415 #### [facility] [address] [place] [address] Cholesterol in LDL [Mass/Vol] 86 mg/dL Normal <=[address] [facility] Comment on above: Performed By: #### 2 030592, 2035856, 7237511, 9921399, 849090638, 3621642, 6079433, 00876210, 9412926 #### [facility] [address] [place] [address] Cholesterol in VLDL [Mass/Vol] 27 mg/dL Normal 7-[address] [facility] Comment on above: Performed By: #### 2 288339, 0853022, 2600133, 1062017, 727893915, 6077596, 0081055, 85802690, 0510938 #### [facility] [address] [place] [address] Triglyceride [Mass/Vol] 133 mg/dL Normal <=[address] [facility] Comment on above: Performed By: #### 2 486988, 5793804, 6919886, 2589809, 220433389, 0321576, 4113729, 26721641, 7006571 #### [facility] [address] [place] [address] Physician Orderon 07-04-2023 Physician Order [id number] 1.00TIFF Normal [facility] TSHon 07-04-2023 TSH Qn 2.75 m[IU]/L Normal 0.34-5.[address] [facility] Comment on above: Performed By: #### 2 968807, 7109973, 0125081, 3252781, 771164755, 3536457, 9604962, 31045290, 4326605 #### [facility] [address] [place] [address] Valproic Acidon 07-04-2023 Valproate [Moles/Vol] 79 microgram/mL Normal 50-[address] [facility] Comment on above: Performed By: #### 2 845113, 0356460, 3113306, 3688766, 308479323, 0341961, 8787812, 43809052, 2841067 #### [facility] [address] [place] [address] Vitamin D 25 Hydroxyon 07-04 25-hydroxyvitamin D3 [Mass/Vol] 33.7 ng/mL Normal 30.0-100.[address] [facility] Comment on above: Result Comment: Vit alfredo D deficiency has been defined as a level of serum 25-OH vitamin D less than 20 ng/mL (1,2) by the [place] [employer] and an Endocrine Society practice guideline. The Endocrine Society further defined vitamin D insufficiency as a level between 21 and 29 ng/mL (2). 1. IOM ([place] [employer]). 2010. Dietary reference intakes for calcium and D. [place]: The National Academies Press. 2. Denia JACINTO, Marcelino CHAIDEZ, Ann GARVEY, et al. Evaluation, treatment, and prevention of vitamin D deficiency: an Endocrine Society clinical practice guideline. JCEM. 2010; 96 (7):1911-30. Performed By: #### 2 596113, 8109158, 5105969, 1959233, 267707290, 5583162, 7366262, 28059750, 9182157 #### [facility] [address] [place] [address] eGFRon 07-04-2023 GFR/1.73 sq M.predicted among non-blacks MDRD (S/P/Bld) [Vol rate/Area] 118 mL/min/1.73 m2 Normal >=[address] [facility] Comment on above: Order Comment: Order added by Discern Expert. Result Comment: Dam Operator jenni kidney disease could be indicated at eGFR's of less than 60 mL/min/1.73m2. Kidney failure is indicated at less than 15 mL/min/1.73m2. Performed By: #### 2 033061, 9260375, 9083965, 8861724, 439246376, 4407654, 8683225, 24367145, 8552995 #### [facility] [address] [place] [address] XR Chest PA and Lateralon EXAMINATION: XR [...] indicated with dedicated abdominal radiograph/CT. MACRO: None [facility] Radiology Study observation (narrative) [facility] [employer] XR Chest PA and LateralOrder ed By: Krystal Epstein on 06-22-2023 [facility] Work Phone: DEPAKENE/ VALPROIC ACIDon DEPAKENE 59.3 ug/ml Normal 50.0-100.0 [facility] Comment on above: Performed By: #### V ALP #### [facility] [address] [address] [address] Nikky King DEPAKENE/ VALPROIC ACIDon DEPAKENE 43.6 ug/ml Critically low 50.0-100.0 [facility] Comment on above: Performed By: #### V ALP #### [facility] [address] [address] [address] Nikky King LITHIUMon 12-06-2022 [place] (Eskalith(R)), Serum 0.8 mmol/L Normal 0.5-1.[address] [facility] Comment on above: Result Comment: A co ncentration of 0.5-0.8 mmol/L is advised for long-term use; concentrations of up to 1.2 mmol/L may be necessary during acute treatment. Detection Limit = 0.1 <0.1 indicates None Detected Performed By: #### L ITHIUM #### [facility] [address] [place] [address] Dr. Nikky King DEPAKENE/ VALPROIC ACIDon DEPAKENE 61.7 ug/ml Normal 50.0-100.0 [facility] Comment on above: Performed By: #### V ALP #### [facility] [address] [place] [address] Dr. Nikky King LITHIUMon 11-23-2022 [place] (Eskalith(R)), Serum 0.9 mmol/L Normal 0.5-1.2 [facility] Comment on above: Result Comment: A co ncentration of 0.5-0.8 mmol/L is advised for long-term use; concentrations of up to 1.2 mmol/L may be necessary during acute treatment. Detection Limit = 0.1 <0.1 indicates None Detected Performed By: #### L ITHIUM #### [facility] [address] [place] [address] Dr. Nikky King CALCIUMon 08-22-2022 Calcium [Mass/Vol] 9.6 mg/dL Normal 8.5-10.1 [facility] Comment on above: Performed By: #### C A, CREA #### [facility] [address] [place] [address] Dr. Nikky King CREATININEon 08-22-2022 Creatinine [Mass/Vol] 0.84 mg/dL Normal 0.70-1.30 [facility] Comment on above: Performed By: #### C A, CREA #### [facility] [address] [place] [address] Dr. Nikky King EGFR-AF AUSTRIAN >60 Normal >=60 [facility] Comment on above: Performed By: #### C A, CREA #### [facility] [address] [place] [address] Dr. Nikky King EGFR-NON AF AUSTRIAN >60 Normal >=60 [facility] Comment on above: Performed By: #### C A, CREA #### [facility] [address] [place] [address] Dr. Nikky King LITHIUMon 07-05-2022 [place] (Eskalith(R)), Serum 0.9 mmol/L Normal 0.5-1.[address] [facility] Comment on above: Result Comment: A co ncentration of 0.5-0.8 mmol/L is advised for long-term use; concentrations of up to 1.2 mmol/L may be necessary during acute treatment. Detection Limit = 0.1 <0.1 indicates None Detected Performed By: #### L ITHIUM #### [facility] [address] [place] [address] Dr. Nikky King Vital Signs Date Time Vital Sign Value Performing Clinician Severinoi lity 12-02-2024 12:32-0400 Body height 167.6 cm Cris Lowe PA Work Phone: [facility] 12-02-2024 12:32-0400 Body mass index (BMI) [Ratio] 31.96 kg/m2 Cris Lowe PA Work Phone: [facility] 12-02-2024 12:32-0400 Body weight 89.81 kg Cris Lowe PA Work Phone: [facility] 12-02-2024 12:32-0400 Diastolic blood pressure 82 mm[Hg] Cris Lowe PA Work Phone: [facility] 12-02-2024 12:32-0400 Systolic blood pressure 128 mm[Hg] Cris Lowe PA Work Phone: [facility] 05-21-2024 09:29-0400 Body height 167.6 cm Cris Lowe PA Work Phone: [facility] 05-21-2024 09:29-0400 Body mass index (BMI) [Ratio] 31.96 kg/m2 Cris Lowe PA Work Phone: [facility] 05-21-2024 09:29-0400 Body weight 89.81 kg Cris Lowe PA Work Phone: [facility] 05-21-2024 09:29-0400 Diastolic blood pressure 90 mm[Hg] Cris Lowe PA Work Phone: [facility] 05-21-2024 09:29-0400 Systolic blood pressure 136 mm[Hg] Cris BANG Work Phone: [facility] 12-28-2023 14:30-0400 Diastolic blood pressure 89 mm[Hg] Mari Traore DMD Work Phone: [facility] 12-28-2023 14:30-0400 Heart rate 69 /min Mari Traore DMD Work Phone: [facility] 12-28-2023 14:30-0400 Respiratory rate 10 /min Mari Traore DMD Work Phone: [facility] 12-28-2023 14:30-0400 SaO2% (BldA) [Mass fraction] 100 % Mari Traore DMD Work Phone: [facility] 12-28-2023 14:30-0400 Systolic blood pressure 135 mm[Hg] Mari Traore DMD Work Phone: [facility] 12-28-2023 13:52-0400 Body temperature 97.3 [degF] Mari Traore DMD Work Phone: [facility] 12-28-2023 09:15-0400 Body height 167.6 cm Mari Traore DMD Work Phone: [facility] 12-28-2023 09:15-0400 Body mass index (BMI) [Ratio] 31.8 kg/m2 Mari Traore DMD Work Phone: [facility] 12-28-2023 09:15-0400 Body weight 89.36 kg Mari Traore DMD Work Phone: [facility] 12-19-2023 11:23-0400 Diastolic blood pressure 90 mm[Hg] Ling Markiv [employer]CRETE [employer] DEVELOPER Work Phone: [facility] 12-19-2023 11:23-0400 Systolic blood pressure 132 mm[Hg] Ling Markiv [employer]CR[employer]E P[employer] DEVELOPER Work Phone: [facility] 12-19-2023 11:03-0400 Body height 167.6 cm Ling Markiv [employer]CRETE P[employer] MAKER[employer] SQL DEVELOPER Work Phone: [facility] 12-19-2023 11:03-0400 Body mass index (BMI) [Ratio] 31.8 kg/m2 Ling Coffman CONCRETE P[employer] MAKER[employer]LEAD SQL DEVELOPER Work Phone: [facility] 12-19-2023 11:03-0400 Body temperature 97.81 [degF] Ling Coffman CONCRETE P[employer] MAKER[employer]LEAD SQL DEVELOPER Work Phone: [facility] 12-19-2023 11:03-0400 Body weight 89.36 kg Ling Coffman [employer]CRETE P[employer]LEAD SQL DEVELOPER Work Phone: [facility] 12-19-2023 11:03-0400 Heart rate 59 /min Ling Coffman [employer]CR[employer]E P[employer] DEVELOPER Work Phone: [facility] 12-19-2023 11:03-0400 Respiratory rate 18 /min Ling Coffman CONCRETE P[employer]AD SQL DEVELOPER Work Phone[facility] 12-19-2023 11:03-0400 SaO2% (BldA) [Mass fraction] 97 % Ling Coffman [employer]CRETE P[employer] MAKER[employer]LEAD SQL DEVELOPER Work Phone: [facility] 12-03-2023 13:07-0400 Body height 167.6 cm Oscar Ruiz MD Work Phone: [facility] 12-03-2023 13:07-0400 Body weight 92.53 kg Oscar Ruiz MD Work Phone: [facility] 12-03-2023 13:07-0400 Diastolic blood pressure 76 mm[Hg] Oscar Ruiz MD Work Phone: [facility] 12-03-2023 13:07-0400 Heart rate 71 /min Oscar Ruiz MD Work Phone: [facility] 12-03-2023 13:07-0400 Systolic blood pressure 111 mm[Hg] Oscar Ruiz MD Work Phone: [facility] 11-28-2023 09:48-0400 Body height 167.6 cm Victoria Daniel CONCRETE P[employer]KER[employer] SQL DEVELOPER Work Phone: [facility] 11-28-2023 09:48-0400 Body temperature 97.5 [degF] Victoria Daniel [employer]CRETE P[employer] MAKER[employer] SQL DEVELOPER Work Phone: [facility] 11-28-2023 09:48-0400 Body weight 87.54 kg Victoria Daniel CONCRETE P[employer] MAKER[employer] SQL DEVELOPER Work Phone: [facility] 11-28-2023 09:48-0400 Diastolic blood pressure 66 mm[Hg] Victoria Daniel [employer]CRETE P[employer] MAKER[employer]LEAD SQL DEVELOPER Work Phone: [facility] 11-28-2023 09:48-0400 Heart rate 83 /min Victoria Daniel [employer]CRETE P[employer]KER[employer] SQL DEVELOPER Work Phone: [facility] 11-28-2023 09:48-0400 Systolic blood pressure 134 mm[Hg] Victoria Daniel [employer]CRETE P[employer] MAKER[employer] SQL DEVELOPER Work Phone: [facility] 07-16-2023 08:06-0500 Body mass index (BMI) [Ratio] 33.97 kg/m2 Kim Beltre MD Work Phone: [facility] 07-16-2023 08:06-0500 Body temperature 97.5 [degF] Kim Beltre MD Work Phone: [facility] 07-16-2023 08:06-0500 Body weight 90.27 kg Kim Beltre MD Work Phone: [facility] 07-16-2023 08:06-0500 Diastolic blood pressure 80 mm[Hg] Kim Beltre MD Work Phone: [facility] 07-16-2023 08:06-0500 Heart rate 37 /min Kim Beltre MD Work Phone: [facility] 07-16-2023 08:06-0500 Respiratory rate 15 /min Kim Beltre MD Work Phone: [facility] 07-16-2023 08:06-0500 SaO2% (BldA) [Mass fraction] 100 % Kim Beltre MD Work Phone: [facility] 07-16-2023 08:06-0500 Systolic blood pressure 110 mm[Hg] Kim Beltre MD Work Phone: [facility] Encounters Encounter Date Encounter Type Care Provider Facility Start: 12-16-2024 End: 12-16-2024 Telephone encounter To Be Assigned [facility] Physicia n Referral Service Comment on [...] Letter encounter Aileen Corcoran DDS Work Phone: [facility] Start: 05-21-2024 End: 05-21-2024 Bamboo flowsheet [...] Letter encounter Aileen Corcoran DDS Work Phone: [facility] Start: 02-13-2024 End: 02-13-2024 Lab Drop off HERMAN CRANE [facility] Start: 02-13-2024 End: 02-13-2024 ambulatory HERMAN CRANE Facility:[facility] Start: 01-29-2024 End: 01-29-2024 ambulatory CRIS ELBA Not Available Start: 01-11-2024 Telephone encounter Cris Dinh RN Colorectal Surgery Comment on above: [facility] [employer] Start: 12-28-2023 End: 12-31-2023 Patient encounter procedure Mari Traore DMD Work Phone: [facility] Dentistry Start: 12-28-2023 End: 12-28-2023 Subsequent hospital visit by physician Mari Traore DMD Work Phone: [facility] Ambulatory Surgery Start: 12-28-2023 End: 12-31-2023 ambulatory RYAN PENTWATERDYAN Facility:[facility] Start: 12-25-2023 Telephone encounter Shayy Chandler RN [facility] Pre-Admission Testing Comment on above: Pre-surgical Evaluat ion (DD adult dental restorations 12/27 under [place] at [place]. PAT completed - consent request sent to main - see future encounter for results. [facility] confirmed [facility], [place] address, and 0900 arrival time/) Pre-surgical Evaluat ion (Anesthesia Attestaion for dental surgery scanned in manager social media) Start: 12-20-2023 End: 12-20-2023 Orders Only Victoria Sanchez CONCRETE P[employer] MAKER[employer]LEAD SQL DEVELOPER Work Phone: General Surgery Comment on above: Sigmoid volvulus (HC C) (Primary Dx) Start: 12-19-2023 End: 12-19-2023 Patient encounter procedure Ling Ridleyclaudia CONCRETE P[employer] MAKER[employer]LEAD SQL DEVELOPER Work Phone: [facility] Pre-Admission Testing Comment on above: Pre-op testing (Prim marylin Dx); Body mass index (BMI) 31.0-31.9, adult Start: 12-19-2023 End: 12-19-2023 Patient encounter status Ling Coffman CONCRETE PIPE MAKER[employer]LEAD SQL DEVELOPER Work Phone: [facility] Work Phone: Start: 12-19-2023 ambulatory RYAN ZURITA Facilit y:[facility] Start: 12-19-2023 Encounter for other preprocedural examination LING COFFMAN [facility] Start: 12-11-2023 End: 12-11-2023 ambulatory EPIFANIO YUKO Not Available Start: 12-03-2023 End: 12-04-2023 ambulatory Rafael Giraldo MD Work Phone: Urology Start: 12-03-2023 End: 12-03-2023 Office outpatient visit 5 minutes Oscar Ruiz MD Work Phone: Urology Comment on above: Phimosis (Primary Dx ) Start: 11-28-2023 End: 11-29-2023 ambulatory VICTORIA SANCHEZ Facility:[facility] Start: 11-28-2023 End: 11-28-2023 Patient encounter procedure Victoria Sanchez CONCRETE PIPE MAKER[employer]LEAD SQL DEVELOPER Work Phone: General Surgery Comment on above: Postoperative visit (Primary Dx) Start: 11-12-2023 Telephone encounter Cris Dinh RN Colorectal Surgery Comment on above: [employer] Start: 11-07-2023 End: 11-07-2023 ambulatory PHOENIX CARDENAS Facility:[facility] Start: 10-28-2023 Evaluation and management of inpatient PHOENIX CARDENAS Facility:[facility] Start: 10-10-2023 Admission to [facility] Coleen Dodson DDS Other Phone: [facility] Start: 07-16-2023 End: 07-16-2023 Emergency department patient visit Kim Beltre MD Work Phone: [facility] Emergency Department Comment on above: bradycardia (Low HR (33)) Start: 07-16-2023 End: 07-16-2023 Subsequent hospital visit by physician Harpreet Mccurdy DDS Work Phone: [facility] Radiology CT Scan Comment on above: Arrived Start: 07-04-2023 End: 07-04-2023 ambulatory HERMAN CRANE Facility:[facility] Start: 07-04-2023 End: 07-04-2023 Lab Drop off HERMAN CRANE [facility] Start: 06-26-2023 Telephone encounter Shanna marquez RN [facility] Pre Surgical Evaluation Comment on above: Pre-surgical Evaluat ion (Informed Consent for dental surgery & Anesthesia consent obtained) Start: 06-22-2023 End: 06-22-2023 Subsequent hospital visit by physician Alin Op Xray 2 [facility] Radiology Comment on above: Pre-op exam Start: 06-22-2023 End: 06-22-2023 Patient encounter procedure Pse Anesthesia [facility] Pre Surgical Evaluation Comment on above: Pre-op evaluation (P rimary Dx) Start: 06-22-2023 End: 06-22-2023 Preprocedural examination done Pse Anesthesia [facility] Work Phone: Start: 05-25-2023 Admission to [facility] Hiram Rodriguez DDS Work Phone: [facility] Start: 01-17-[address] HERMAN [...] specified special examinations DR HERMAN CRANE [facility] Start: 08-22-2022 End: 08-23-2022 ambulatory [...] Start: 03-29-2022 Telephone encounter To Be Assigned [facility] Physician Referral Service Comment on above: Medical Record Revie w Procedures Date Procedure Procedure Detail Performing Clinician Start: 12-19-2023 Basic metabolic pane l calcium total Ling Markiv CONCRETE PIPE MAKER-LEAD SQL DEVELOPER Work Phone: Start: 10-28-2023 Antibody screen PHOENIX CARDENAS Comment on above: Order Comment: Speci men Type: BLOOD SPECIMEN Ordering Facility: [facility] Address: [address] [place] [address] Performed By: #### 2 [id number], [id number], [id number] #### [facility] CLIA [id number] [address] [place] [address] [place] Start: 07-16-2023 End: [...] DTaP,Tdap,Td Vaccine (2 - Td or Tdap) [facility] Start: 12-02-2024 End: 12-02-2024 Patient encounter procedure [facility] Comment on above: Arrived Start: 05-21-2024 End: 05-21-2024 Patient encounter procedure 05/21/2024 9:40 AM EDT Office Visit [facility] [address] [place] [id number] Cris Walters PA [address] [place] [address] Arrived [facility] Comment on above: Arrived Start: 04-20-2024 COVID-19 Vaccine ( season) COVID-19 Vaccine ( season) [facility] Start: 04-20-2024 COVID-19 Vaccine ( season) COVID-19 Vaccine ( season) [facility] Start: 04-20-2024 Influenza vaccination Influenza Vacc ine (#1) [facility] Start: 03-11-2024 End: 03-11-2024 Patient encounter procedure 03/11/2024 9:00 AM EDT Office Visit [facility] [address] [place] [address] [address] [place] [address] Iain Lazcano MD [address] [facility] [address] [place] [address] Cataracts Ophthalmology Comment on above: Cataracts Start: 12-28-2023 End: 12-28-2023 Admission to same day surgery center 12/28/2023 10:01 AM EDT - 12/28/2023 12:21 PM EDT Surgery [facility] Ambulatory Surgery [address] [place] [address] Mari Traore, DMD [address] [place] [address] DENTAL RESTORATIONS [facility] Ambulatory Surgery Comment on above: DENTAL RESTORATIONS Start: 12-28-2023 End: 12-28-2023 DENTAL RESTORATIONS [facility] Start: 12-28-2023 Subsequent hospital visit by physician 12/28/2023 10:01 AM EDT Hospital Encounter [facility] Ambulatory Surgery [address] [place] [address] Mari Traore, DMD [address] [place] [address] [facility] Ambulatory Surgery Start: 12-28-2023 End: 12-28-2023 Patient encounter procedure 12/28/2023 9:00 AM EDT Procedure Visit [facility] Dentistry [address] [place] [address] Mari Traore, DMD [address] [place], [place] [id number] [facility] Start: 08-20-2023 Behavioral Health Screening Behavioral Health Screening [facility] Start: 08-20-2023 Depression Assessment Depression Ass essment [facility] Start: 07-16-2023 End: 07-16-2023 DENTAL RESTORATIONS DENTAL RESTORATIONS Routine scheduled Caries 07/16/2023 1:45 PM EST [facility] Start: 07-16-2023 End: 07-16-2023 Admission to same day surgery center 07/16/2023 9:27 AM EST - 07/16/2023 11:24 AM EST Surgery [facility] Ambulatory Surgery [address] [place] [address] Harpreet Mccurdy, DDS [address] [place] [address] DENTAL RESTORATIONS [facility] Ambulatory Surgery Comment on above: DENTAL RESTORATIONS Start: 07-16-2023 End: 07-16-2023 DENTAL RESTORATIONS DENTAL RESTORATIONS Routine scheduled Caries 07/16/2023 9:27 AM EST [facility] Start: 07-16-2023 Subsequent hospital visit by physician [facility] Ambulatory Surgery Start: 06-22-2023 End: 06-22-2023 Patient encounter procedure 06/22/2023 2:30 PM EDT Office Visit [facility] [address] [place] [address] Franc Beyer MD [address] [place], [place] [id number] [facility] Start: 04-20-2023 COVID-19 Vaccine ( season) COVID-19 Vaccine ( season) [facility] Start: 04-20-2023 Influenza vaccination Influenza Vacc ine (#1) [facility] Start: 05-20-2022 Influenza vaccination Influenza Vacc ine (#1) [facility] Start: 04-20-2022 Influenza vaccination INFLUENZA (#1) [facility] Start: 08-20-2021 DEPRESSION ASSESSMENT DEPRESSION ASS ESSMENT [facility] Start: 08-10-2021 COVID-19 VACCINE (4 - Booster for Pfizer series) COVID-19 VACCINE (4 - Booster for Pfizer series) [facility] Start: 2019 HPV Vaccine (optiona l start 27-45 years) HPV Vaccine (optional start 27-45 years) [facility] Start: 02-17-2014 Annual wellness visit Annual W ellness Visit ([id number]) [facility] Start: 2011 Hepatitis A (HAV) Vaccine (optional start 19+ years) Hepatitis A (HAV) Vaccine (optional start 19+ years) [facility] Start: 2011 Hepatitis B vaccination Hepatitis B (HBV) Vaccine (1 of 3 - 19+ 3-dose series) [facility] Start: 2011 Hepatitis B Vaccine (1 of 3 - 19+ 3-dose series) Hepatitis B Vaccine (1 of 3 - 19+ 3-dose series) [facility] Start: 2011 Urine microalbumin profile DTAP,TDAP,TD (1 - Tdap) [facility] Start: 2010 Annual PCP Team Chronic Disease Visit Annual PCP Team Chronic Disease Visit [facility] Start: 2010 Hepatitis C screening M [facility] Start: 2010 HEPATITIS C SCREENING HEPATITIS C SC RENATE [facility] Start: 2010 HIV SCREENING HIV SCREENING [facility] Start: 2010 HIV screening HIV Screening [facility] Start: 2007 HIV screening HIV Test [facility] Start: 2004 Adult depression screening assessment DEPRESSION SCREENING [facility] Start: 1992 HEPATITIS B (1 of 3 - 3-dose series) HEPATITIS B (1 of 3 - 3-dose series) [facility] Start: 1992 Hepatitis B vaccination Hepatitis B (HBV) Vaccine (1 of 3 - 3-dose series) [facility] Start: 1992 Thyroid stimulating hormone measurement TSH [facility] DENTAL RESTORATIONS DENTAL OMAR RATIONS Routine scheduled Caries [facility] URINALYSIS, REFLEX MICROSCOPIC URINALYSIS, REFLEX MICROSCOPIC Lab Routine Screening for genitourinary condition Ordered: 12/03/2023 [facility] Work Phone: Comment on above: Ordered: 12/03/2023 [facility] Immunizations Immunization Date Immunization Notes Care Provider Jason lowe 06-15-2021 influenza, injectabl e, quadrivalent, preservative free To Assigned [facility] 06-15-2021 influenza virus vacc ine, unspecified formulation To Assigned [facility] 05-26-2020 influenza, injectabl e, quadrivalent, preservative free To Assigned [facility] 07-10-2019 tetanus toxoid, redu alex diphtheria toxoid, and acellular pertussis vaccine, adsorbed To Assigned [facility] 06-13-2019 influenza, injectabl e, quadrivalent, preservative free To Assigned [facility] 05-29-2018 influenza, injectabl e, quadrivalent, preservative free To Assigned [facility] 06-13-2017 influenza, injectabl e, quadrivalent, contains preservative To Assigned [facility] 06-10-2015 influenza, injectabl e, quadrivalent, preservative free To Assigned [facility] 06-12-2012 influenza, seasonal, injectable To A ssigned [facility] 05-03-2011 influenza, seasonal, injectable, preservative free To Assigned [facility] 06-15-2010 influenza, seasonal, injectable To A ssigned [facility] 07-07-2009 novel influenza-H1N1 -09, preservative-free, injectable To Assigned [facility] 05-11-2009 influenza, seasonal, injectable To A ssigned [facility] 06-15-2008 influenza, seasonal, injectable To A ssigned [facility] 06-11-2008 influenza virus vacc ine, whole virus To Assigned [facility] Payers Date Payer Category Payer Specific state progr [facility] (list/ local code) TB FUNDED 0000 [id number] 2020 Unknown [id number] 2017 Dental --Stand Alone DENTAL-MEDI CAID [id number] 2017 Medicaid [id number] 2013 Medicare [id number] [id number] .[id number] 2013 Medicare FFS MEDICARE [id number] 1992 Unknown [id number] 2.16.840.1.556319.3.579.2. 727 1992 Unknown [id number] 2.16.840.1.265479.3.579.2. 727 1992 Unknown [id number] 2.16.840.1.805511.3.579.2. 1259 1992 Unknown [id number] 2.16.840.1.940879.3.579.2. 1259 1992 Unknown [id number] 2.16.840.1.584957.3.579.2. 1259 1992 Unknown [id number] 2.16.840.1.227618.3.579.2. 1259 1992 Unknown [id number] 2.16.840.1.227203.3.579.2. 1259 1992 Unknown [id number] 2.16.840.1.962698.3.579.2. 732 1992 Unknown [id number] 2.16.840.1.711076.3.579.2. 732 1992 Unknown [id number] 2.16.840.1.960406.3.579.2. 732 1992 Unknown [id number] 2.16.840.1.234758.3.579.2. 732 1959 Medicaid [id number] 1959 Medicare [id number] Unknown [id number] 2.16.840.1.716058.3.579.2. 593 Unknown [id number] 2.16.840.1.551968.3.579.2. 593 Unknown [id number] 2.16.840.1.701707.3.579.2. 593 Unknown [id number] 2.16.840.1.808258.3.579.2. 593 Unknown [id number] 2.16.840.1.261625.3.579.2. 593 Unknown [id number] 2.16.840.1.784779.3.579.2. 593 Unknown [id number] 2.16.840.1.354791.3.579.2. 593 Unknown [id number] 2.16.840.1.293216.3.579.2. 593 Specific state progr ams (list/ local code) TB FUNDED [id number] Social History Date Type Detail Facility Start: 07-08-2019 End: 12-11-2023 Tobacco smoking status NHIS Never smoked tobacco [facility] Start: 07-08-2019 End: 12-11-2023 Tobacco use and exposure Smokeless tobacco non-user [facility] Start: 02-04-2021 End: 12-31-2023 Alcohol intake Lifetime [facility]-drinker (finding[facility] Start: 07-13-2020 History SDOH Alcohol Frequency 1 [facility] Start: 1990 Sex Assigned At Not on file M [facility] Start: 05-04-2022 End: 12-19-2023 Tobacco smoking status NHIS Tobacco smoking consumption unknown [facility] Start: 04-24-2022 End: 05-04-2022 Exposure to SARS-CoV-2 (event) Not sure [facility] Start: 06-22-2023 End: 10-29-2023 Gender identity Not on file [facility] Tobacco smoking status No Smokin g Status Entered [facility] Start: 06-22-2023 End: 10-29-2023 History of Social function [facility] Work Phone: Has the [employer], or [employer] threatened to shut off services in your home in past 12Mo Patient unable to answer [facility] Work Phone: How often to you hav e a drink containing alcohol? Never [facility] Work Phone: Start: 07-20-2017 Sex Male (finding) [facility] Clinical Notes 03-29-2022 to 12-16-2024 Telephone Encounter - Roni Lynne - 12/16/2024 2:03 PM EDTTelephone Encounter - Roni Lynne - 12/16/2024 2:03 PM BETI Antonio - 12/02/2024 12:40 PM EDTDischarge Instructions Note Date & Type Note Facility 12-16-2024 Note Outreach Team ) Contact Details: I did not contact. Pt [...] date (10 year lookback): Not Found [facility] 12-16-2024 Telephone encounter Note Outreach Team ([phone]) Contact Details: I did not contact. Pt [...] Smear date (10 year lookback): Not Found [facility] 12-16-2024 Miscellaneous Notes Outreach Team ([phone]) Contact Details: I did not contact. Pt [...] lookback): Not Found documented in this encounter [facility] 12-02-2024 History of Present illness Narrative [...] CT scan of the brain 11/03/23 at [facility] that revealed volume loss, especially in [...] or worsening symptoms. documented in this encounter [facility] 05-21-2024 History of Present illness Narrative [...] CT scan of the brain 11/03/23 at [facility] that revealed volume loss, especially in [...] in 6 months documented in this encounter [facility] 02-13-2024 Evaluation + Plan note Diagnostic Tests PendingKeppra Lvl 02/13/24Lamotrigine Level 02/13/24 [facility] 01-11-2024 Telephone encounter Note Jessica from [facility] [place] [place] [phone] is caller. She states was originally told [...] needs at present time. Cris Dinh, RN [facility] 01-11-2024 Miscellaneous Notes Jessica from [facility] [place] [place] [phone] is caller. She states was originally told [...] Cris Dinh, RN documented in this encounter [facility] 12-28-2023 Hospital Discharge instructions Benjamín [facility]Go - 12/28/2023 2:17 PM EDT PERIOPERATIVE DISCHARGE/HOME-GOING INSTRUCTIONS ANESTHESIA - GENERAL (ADULT) If a problem arises, you may contact your physician by calling [phone] and asking for the resident curator of education for Dental service. Special Care Needs: Activity: [...] sent through Care Everywhere.Tooth Extraction Discharge Instructions (Faroese)documented in this encounter [facility] 12-28-2023 History and physical note Surgical [...] possible Mari Traore DMD 12/28/2023 10:09 AM [facility] Work Phone: 12-28-2023 Note Surgical Attestation : [...] Mari Traore DMD 12/28/2023 10:09 AM [facility] 12-28-2023 History and physical note Surgical [...] 12/28/2023 10:09 AM documented in this encounter [facility] 12-28-2023 Miscellaneous Notes Brief Operative Note PHE OR 3 Johnny Devine 33 year old male Surgical Contact Serial Number: [id number] Preoperative Diagnosis: Pre-op Diagnosis * Caries [K02.9] Moderate intellectual disability [F79] Postoperative Diagnosis: Moderate intellectual disability [F79] Procedures: Comprehensive exam [45874] Full mouth X-ray [ 78200] Extractions [96718] Restorations [59425] Prophy 31572] Fluoride treatment [07393] Surgeon(s): Surgeon(s): Mari Traore DMD Staff: Healthcare Educator Nurse: Henrietta Johnson Anesthesia: General Anesthesia Staff: [...] disability[F79] @ENCORD@ Surgeon: Dr. Mari Traore DMD Adjunct Sociology Professor Surgeon: Reema Whiting DDS Anesthesia: General- Nasal [...] 4 mg/0.1 mL nasal liquid Use 1 [place] in one nostril (alternate sides) as needed [...] were discussed with the patient and/or legal aircraft sales representative. The risks, benefits and alternatives were reviewed. Questions regarding blood transfusions were answered. The patient /or the patient s legal aircraft sales representative agree with the plan for transfusion of blood and/or blood components. documented in this encounter [facility] 12-28-2023 Surgery Postoperative evaluation and management note Brief Operative Note PHE OR 3 Johnny Devine 33 year old male Surgical Contact Serial Number: [id number] Preoperative Diagnosis: Pre-op Diagnosis * Caries [K02.9] Moderate intellectual disability [F79] Postoperative Diagnosis: Moderate intellectual disability [F79] Procedures: Comprehensive exam [92778] Full mouth X-ray [ 64512] Extractions [37316] Restorations [42733] Prophy 39625] Fluoride treatment [74332] Surgeon(s): Surgeon(s): Mari Traore DMD Staff: Healthcare Educator Nurse: Henrietta Johnson Anesthesia: General Anesthesia Staff: [...] by Reema Whiting DDS 12/28/2023 1;[address] [facility] 12-28-2023 Surgery Surgical operation note Surgical Case Number Data Unavailable Operating Room Data Unavailable Preoperative Diagnosis(es): Pre-op Diagnosis * Caries [K02.9] Moderate intellectual disability [F79] Postoperative Diagnosis(es): Moderate intellectual disability[F79] @ENCORD@ Surgeon: Dr. Mari Traore DMD Adjunct Sociology Professor Surgeon: Reema Whiting DDS Anesthesia: General- Nasal [...] 4 mg/0.1 mL nasal liquid Use 1 [place] in one nostril (alternate sides) as needed [...] Reema Whiting DDS 12/28/2023 1:53 pm [facility] 12-28-2023 Progress note Formatting of t his note is different from the original. Blood Attestation: ATTESTATION OF INFORMED CONSENT FOR BLOOD: The transfusion of blood and/or blood components were discussed with the patient and/or legal aircraft sales representative. The risks, benefits and alternatives were reviewed. Questions regarding blood transfusions were answered. The patient /or the patient s legal aircraft sales representative agree with the plan for transfusion of blood and/or blood components. [facility] 12-28-2023 History of Present illness Narrative Patient takes his seizure medication with pudding, facility held them today for dental surgery. Caregiver brought capsules with them to pre-op. Per Dr. Saldivar, divalproex 125 mg x 4 capsules (500 mg) were opened and sprinkles given to patient with 50 mL of water in pre-op. 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 MB cusp tip was visualized upon extraction of #17, but well encased in bone and would not be exposed to the oral cavity following healing of the extraction site. Preoperative Diagnosis(es): Pre-op Diagnosis * Caries [K02.9] Moderate intellectual disability [F79] Postoperative Diagnosis(es): Moderate intellectual disability[F79] Surgeon: Dr. Mari Traore DMD Adjunct Sociology Professor Surgeon: Reema Whiting DDS Anesthesia: General- Nasal [...] of surgery: Stable documented in this encounter [facility] 12-21-2023 Evaluation note Addendum 12/21/2023- Caregiver @ [facility] called to relay that patient unable [...] Kiko VASQUEZ RN updated nursing staff @ [facility]. [facility] 12-21-2023 Miscellaneous Notes Addendum 12/21/2023- Caregiver @ [facility] called to relay that patient unable [...] Kiko VASQUEZ RN updated nursing staff @ [facility]. Patient was identified by name and date of . Jaswinder Arredondo Patient at risk for falls:No Falls Risk protocol implemented: N/A documented in this encounter [facility] 12-19-2023 Instructions Ling Coffman APRN-LEAD SQL DEVELOPER - 12/19/2023 11:26 AM EDT On the [...] for pain. Please hold all Vitamin E, White 3, fish oil and herbal supplements for 1 week prior to surgery. Please use this LIST to prepare for your surgery/procedure: ? Assume that any lab or testing done during your Pre-admission testing appointment is within normal limits unless otherwise contacted. ? Expect a call from [facility] one business day prior to surgery for [...] your Preparing for Your Surgery/Procedure booklet or [email or web address] if you have questions. Contact the Pre-Admission Testing department at [phone] or your surgeon's office with any questions [...] stay with you after surgery. Please call [facility] Beat[employer]no if you need transportation assistance or have concerns about going home [phone]. ? SLEEP APNEA PATIENTS: Bring your sleep apnea machine and mask. ? PLEASE BE ON TIME. A late arrival may result in the cancellation/ delay of your surgery. Thank you for choosing [facility]; it is our pleasure to care for you documented in this encounter [facility] 12-19-2023 Instructions Shanna Sauceda RN - 12/19/2023 11:26 AM EDT [facility] staff: Since patient is unable to take [...] for pain. Please hold all Vitamin E, White 3, fish oil and herbal supplements for 1 week prior to surgery. Please use this LIST to prepare for your surgery/procedure: ? Assume that any lab or testing done during your Pre-admission testing appointment is within normal limits unless otherwise contacted. ? Expect a call from [facility] one business day prior to surgery for [...] your Preparing for Your Surgery/Procedure booklet or [email or web address] if you have questions. Contact the Pre-Admission Testing department at [phone] or your surgeon's office with any questions [...] stay with you after surgery. Please call [facility] Social Work if you need transportation assistance or have concerns about going home [phone]. ? SLEEP APNEA PATIENTS: Bring your sleep apnea machine and mask. ? PLEASE BE ON TIME. A late arrival may result in the cancellation/ delay of your surgery. Thank you for choosing [facility]; it is our pleasure to care for you documented in this encounter [facility] 12-19-2023 Evaluation note Patient was identified by name and date of . Jaswinder Arredondo Patient at risk for falls:No Falls Risk protocol implemented: N/A [facility] 12-19-2023 Miscellaneous Notes Patient was identified by name and date of . Jaswinder Arredondo Patient at risk for falls:No Falls Risk protocol implemented: N/A documented in this encounter [facility] 12-19-2023 History of Present illness Narrative Images from the original note were not included. Pre-Admission Testing Consultation Johnny Devine, [id number] 33 year old Male 12/19/2023 Consult placed to [facility] by Mari Traore, due to significant PMH of Hypothyroidism , Bipolar, Autistic disorder ,Epilepsy [facility] Triage Risk Score Total Score: 3 1 [...] intervention warranted . Patient with Lamaar from [facility] facility during this appointment Patient is here for pre-admission optimization and education prior to surgery. RECENT ILLNESS: Serious illness or hospitalization within the last six months. Yes 10/28/2023 HOSPITAL COURSE: Johnny Devine is a 33 year old male with developmental delay and no PSH who presents as a transfer to [facility] from [facility] for further management of small bowel obstruction. Given patient's baseline cognitive status, NGT difficult to maintain. He was admitted to the [facility] under care of general surgery and was taken to the OR the following morning for diagnostic laparoscopy. Intra-operative findings demonstrated no adhesins, no apparent hernias, dilated small/large bowel, redundant sigmoid c/f volvulus, easily reduced. After recovering in the PACU, he was taken to the [facility] with NGT in place. Patient arrived to [facility] with 8 Fr pediatric haskins catheter in [...] in home regimen. Stable for discharge to long-term. Neurology Recommendations on Discharge: - Discharge on [...] DENTAL RESTORATIONS; Surgeon: Harpreet Mccurdy DDS; Location: [facility] Surgery [facility]; Service: Dental Past [...] MG CSDR capsule LABORATORY DATA: CBC @ [facility] 11/07/2023 CBC Order: [id number] Component Ref Range & Units 1 mo [...] 0418 141 110 21 91 Comment: The [place] [employer] (ADA) provides guidance for cutoff [...] Standards of Medical Care in Diabetes 2016, [place] [employer]. Diabetes Care. 2016.39(Suppl 1). 8 0.70 8.2 11/06/23 0943 146 112 18 83 Comment: The [place] [employer] (ADA) provides guidance for cutoff [...] Standards of Medical Care in Diabetes 2016, [place] [employer]. Diabetes Care. 2016.39(Suppl 1). 6 0.69 8.9 11/05/23 0418 142 112 23 96 Comment: The [place] [employer] (ADA) provides guidance for cutoff [...] Standards of Medical Care in Diabetes 2016, [place] [employer]. Diabetes Care. 2016.39(Suppl 1). 5 0.64 7.6 11/04/23 0826 145 112 24 79 Comment: The [place] [employer] (ADA) provides guidance for cutoff [...] Standards of Medical Care in Diabetes 2016, [place] [employer]. Diabetes Care. 2016.39(Suppl 1). 4 0.70 7.7 TESTS REVIEWED: I personally reviewed and interpreting and findings were: CXRay: Chest x-ray was last done on 10/31/2023 EK10/31/2023 @ [facility] NORMAL SINUS RHYTHM ANTEROLATERAL T WAVE [...] 1:39 PM 12/19/2023 documented in this encounter [facility] 12-19-2023 History of Present illness Narrative Images from the original note were not included. Pre-Admission Testing Consultation Johnny Devine, [id number] 33 year old Male 12/19/2023 Consult placed to [facility] by Mari Traore, due to significant PMH of Hypothyroidism , Bipolar, Autistic disorder ,Epilepsy [facility] Triage Risk Score Total Score: 3 1 [...] intervention warranted . Patient with Lamaar from [facility] facility during this appointment Patient is here for pre-admission optimization and education prior to surgery. RECENT ILLNESS: Serious illness or hospitalization within the last six months. Yes 10/28/2023 HOSPITAL COURSE: Johnny Devine is a 33 year old male with developmental delay and no PSH who presents as a transfer to [facility] from [facility] ED for further management of small bowel obstruction. Given patient's baseline cognitive status, NGT difficult to maintain. He was admitted to the [facility] under care of general surgery and was taken to the OR the following morning for diagnostic laparoscopy. Intra-operative findings demonstrated no adhesins, no apparent hernias, dilated small/large bowel, redundant sigmoid c/f volvulus, easily reduced. After recovering in the PACU, he was taken to the [facility] with NGT in place. Patient arrived to [facility] with 8 Fr pediatric haskins catheter in [...] in home regimen. Stable for discharge to long-term. Neurology Recommendations on Discharge: - Discharge on [...] DENTAL RESTORATIONS; Surgeon: Harpreet Mccurdy DDS; Location: [facility] Surgery Center; Service: Dental Past [...] DATA: CBC @ [facility] 11/07/2023 CBC Order: [id number] Component Ref Range & Units 1 mo [...] 0418 141 110 21 91 Comment: The [place] Diabetes Association (ADA) provides guidance for cutoff [...] Standards of Medical Care in Diabetes 2016, [place] [employer]. Diabetes Care. 2016.39(Suppl 1). 8 0.70 8.2 11/06/23 0943 146 112 18 83 Comment: The [place] [employer] (ADA) provides guidance for cutoff [...] Standards of Medical Care in Diabetes 2016, [place] [employer]. Diabetes Care. 2016.39(Suppl 1). 6 0.69 8.9 11/05/23 0418 142 112 23 96 Comment: The [place] Diabetes Association (ADA) provides guidance for cutoff [...] Standards of Medical Care in Diabetes 2016, [place] [employer]. Diabetes Care. 2016.39(Suppl 1). 5 0.64 7.6 11/04/23 0826 145 112 24 79 Comment: The [place] Diabetes Association (ADA) provides guidance for cutoff [...] Standards of Medical Care in Diabetes 2016, [place] [employer]. Diabetes Care. 2016.39(Suppl 1). 4 0.70 7.7 TESTS REVIEWED: I personally reviewed and interpreting and findings were: CXRay: Chest x-ray was last done on 10/31/2023 EK10/31/2023 @ [facility] NORMAL SINUS RHYTHM ANTEROLATERAL T WAVE [...] 1:39 PM 12/19/2023 documented in this encounter [facility] 12-19-2023 Note Pre-Admission Testin g Consultation Johnny Devine, [id number] 33 year old Male 12/19/2023 Consult placed [...] intervention warranted . Patient with Lamaar from [facility] facility during this appointment Patient is here for pre-admission optimization and education prior to surgery. RECENT ILLNESS: Serious illness or hospitalization within the last six months. Yes 10/28/2023 HOSPITAL COURSE: Johnny Devine is a 33 year old male with developmental delay and no PSH who presents as a transfer to [facility] from [facility] for further management of small bowel obstruction. Given patient's baseline cognitive status, NGT difficult to maintain. He was admitted to the [facility] under care of general surgery and was taken to the OR the following morning for diagnostic laparoscopy. Intra-operative findings demonstrated no adhesins, no apparent hernias, dilated small/large bowel, redundant sigmoid c/f volvulus, easily reduced. After recovering in the PACU, he was taken to the [facility] with NGT in place. Patient arrived to [facility] with 8 Fr pediatric haskins catheter in [...] in home regimen. Stable for discharge to long-term. Neurology Recommendations on Discharge: - Discharge on [...] SERVICES; Ser (more content not included)... [facility] 12-03-2023 Note HNO ID: [id number] Author: OSCAR RUIZ MD Service: ? Author [...] from ongoing urologic care. Oscar Ruiz MD [facility] 12-03-2023 Note Patient Outreach (UR OLMN) JOHNNY DEVINE ([id number]) 1990 M Date Time Provider Department 12/03/23 RAFAEL GIRALDO During your visit today, we recorded the following information about you: Allergies As of Date: 12/03/2023 Noted Allergy Reaction BIAXIN (CLARITHROMYCIN) 05/04/2022 14 - Other: See Comments Comments: caregiver does not know Date Reviewed: 12/03/2023 Reviewed by: Sukhdeep Barton OCCA - Fully Assessed Visit Diagnosis:Screening for genitourinary condition [Z13.89] Order(s):URINALYSIS, REFLEX MICROSCOPIC [KUP0512] Order #: [id number] Prescriptions as of 12/06/2023 - cloNIDine HCl [...] 12/03/2023 Noted Resolved SBO (small bowel obstruction) ([facility]) [K56.609] 10/28/2023 10/31/2023 Bipolar disorder (HCC) [F31.9] 09/16/2018 Hypothyroidism [E03.9] 09/16/2018 Obsessive-compulsive disorder [F42.9] 09/16/2018 Moderate intellectual disability [F71] 09/16/2018 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 Author Type: Nurse Practitioner Type: Progress Notes Filed: 11/28/2023 10:19 Note Text: [facility] Clinic Date: November 28, 2023 Johnny Devine 33 year old male CHIEF COMPLAINT: Patient presents for follow up from surgery. HPI: Here for follow up after diagnostic laparotomy on 10/29/[address] Beffa. Patient also underwent a dorsal slit procedure with urology on 10/30/2023 for paraphimosis. Patient with a bait digger today to discuss his postoperative course since [...] for further surgery discussion Victoria Sanchez, MSN, CONCRETE PIPE MAKER-LEAD SQL DEVELOPER November 28, 2023 [facility] 11-28-2023 History of Present illness Narrative [facility] Clinic Date: November 28, 2023 Johnny Devine 33 year old male CHIEF COMPLAINT: Patient presents for follow up from surgery. HPI: Here for follow up after diagnostic laparotomy on 10/29/[address] Robin. Patient also underwent a dorsal slit procedure with urology on 10/30/2023 for paraphimosis. Patient with a bait digger today to discuss his postoperative course since [...] for further surgery discussion Victoria Sanchez, MSN, CONCRETE PIPE MAKER-LEAD SQL DEVELOPER November 28, 2023 documented in this encounter [facility] 11-28-2023 Nurse Note What is the reason for your visit today? Post op Who is your referring physician? Dr. Sanchez Are you having poor oral intake? NO Have you had unintentional weight loss of 15 lbs/7 Kg in the last 3-6 months? NO Bowels: regular Wound: clean & dry Temperature: No Drains: No documented in this encounter [facility] 11-12-2023 Miscellaneous Notes [facility] care facility and spoke to Rosy. Patient [...] Cris Dinh, RN documented in this encounter [facility] 11-07-2023 Note HNO ID: [id number] Author: HERMAN SALOMON RN Service: Care Management Author Type: Registered Nurse Type: Care Mgt Progress Note Filed: 11/07/2023 14:56 Note Text: CARE MANAGEMENT DISCHARGE NOTE SERVICE DATE: November 07, 2023 SERVICE TIME: 2:56 PM Admission Date: 10/28/2023 LOS: 10 days Discharge Arrangement Discharge Arrangement: Nursing Home Services Arranged Medical Services: Other: See Comment (no services indicated) Caregiver Assessment Caregiver is ready, willing and able to meet the patient's needs as recommended by the inter-professional team: Yes Name of Caregiver: [facility] Transportation Arrangements Transportation Arrangements: Car Destination: Nursing Home Additional Information: Patient d/c ready to Nursing Home with no skilled needs identified. Patient and bedside RN aware of plan. [facility] to transport patient home via private auto. SIGNATURE: Herman Salomon RN PATIENT NAME: Johnny Devine DATE: November 07, 2023 TIME: 2:55 PM CONTACT #: [phone] [facility] 11-07-2023 Note HNO ID: [id number] Author: GIA MULLER MD Service: General Surgery [...] * DORSAL SLIT FORESKIN EXCEPT - General [facility] 11-07-2023 Note HNO ID: [id number] Author: MAYANK READ, MIRIAM Service: Nursing Author Type: Registered Nurse Type: Nursing Progress Note Filed: 11/07/2023 09:25 Note Text: Paged primary team of low BP. [facility] 11-06-2023 Note HNO ID: [id number] Author: ALEXANDRA CHAIREZ MD Service: General Surgery [...] Chairez MD General Surgery Resident Екатерина(Jacob No): [phone] Grundfest(Boy Alcaraz Petro): [id number] After 6PM + Weekends: [phone] INTERVAL EVENTS / PERTINENT REVIEW OF SYSTEMS: [...] * DORSAL SLIT FORESKIN EXCEPT - General [facility] 11-06-2023 Note HNO ID: [id number] Author: BERNARDA SUE MD Service: Neurology General [...] DATE: November 06, 2023 TIME: 12:26 AM [facility] 11-05-2023 Note HNO ID: [id number] Author: LEEANN TELLES MD Service: General Surgery [...] as appropriate, non-distended Leeann Telles MD PGY1 [facility] 11-05-2023 Note HNO ID: [id number] Author: JUAQUIN KRISHNAMURTHY RN Service: Nursing Author [...] to bedside, Valium ordered at this time. [facility] 11-05-2023 Note HNO ID: [id number] Author: HERMAN SALOMON RN Service: Care Management Author Type: Registered Nurse Type: Care Mgt Progress Note Filed: 11/05/2023 11:21 Note Text: CARE MANAGEMENT PROGRESS NOTE SERVICE DATE: 11/05/2023 SERVICE TIME: 11:20 AM LOS: 8 days [place] of Choice Explained: [place] of Choice Given: No Reason Not Given: No placements necessary Anticipated # of Days Until Discharge: 4 Needs Prior to Discharge: Needs Prior to Discharge: To Be Determined Post-Acute Discharge Plan: Patient from [facility]. Plan is to return at discharge. blueprinting and photocopy supervisor is Magi [phone]. Per Magi, she will provide transport at discharge. Magi is requesting an abdominal binder at discharge due to patient's history of self-injurious behavior. 33 year old male POD #7 diagnostic laparoscopy. Patient is non-verbal, developmental delay and lives in long-term. No skilled needs anticipated. SIGNATURE: Herman Salomon RN PATIENT NAME: Johnny Devine DATE: November 05, 2023 TIME: 11:19 AM PAGER/CONTACT #: [phone] [facility] 11-05-2023 Note HNO ID: [id number] Author: CONNIE CAICEDO MD Service: Neurology General [...] Dr. Almanzar. Connie Caicedo MD 5:49 PM [facility] 11-05-2023 Note HNO ID: [id number] Author: ALEXANDRA CHAIREZ MD Service: General Surgery [...] Chairez MD General Surgery Resident Екатерина(Jacob No): [phone] Grundfest(Kieran, Boy, Misti): [phone] After 6PM + Weekends: [phone] INTERVAL EVENTS / PERTINENT REVIEW OF SYSTEMS: [...] * DORSAL SLIT FORESKIN EXCEPT - General [facility] 11-04-2023 Note HNO ID: [id number] Author: ALEXANDRA CHAIREZ MD Service: General Surgery [...] Neuro: continue lorazepam TID per neurology(clarified with [facility] and patient has been getting scheduled [...] Chairez MD General Surgery Resident Екатерина(Jacob No): [phone] Grundfest(Boy Alcaraz, Misti): [phone] After 6PM + Weekends: [phone] INTERVAL EVENTS / PERTINENT REVIEW OF SYSTEMS: [...] * DORSAL SLIT FORESKIN EXCEPT - General [facility] 11-03-2023 Note HNO ID: [id number] Author: ZAIRA ROBERT MD Service: General Surgery [...] (Res) November 03, 2023, 10:29 AM P: [phone] INTERVAL EVENTS / PERTINENT REVIEW OF SYSTEMS: [...] * DORSAL SLIT FORESKIN EXCEPT - General [facility] 11-03-2023 Note HNO ID: [id number] Author: LYLE TRINIDAD RN Service: ? Author Type: Registered Nurse Type: Progress Notes Filed: 11/03/2023 22:32 Note Text: This teletypewriter operator was called by another nurse that pt had a witnessed 20 seconds of seizure episode. AMET called and team notified and orders given. [facility] 11-02-2023 Note HNO ID: [id number] Author: LEEANN TELLES MD Service: General Surgery [...] as appropriate, non-distended Leeann Telles MD PGY1 [facility] 11-02-2023 Note HNO ID: [id number] Author: HERMAN SALOMON, MIRIAM Service: Care Management Author Type: Registered Nurse Type: Care Mgt Progress Note Filed: 11/02/2023 11:43 Note Text: CARE MANAGEMENT WEEKEND PLANNING NOTE DISCHARGE OR POSSIBLE DISCHARGE Date/Time: TBD Disposition: Nursing Home Transport: Car /Magi Other Concerns: Patient from [facility]. Plan is to return at discharge. blueprinting and photocopy supervisor is Magi [phone]. Per Magi, she will provide transport at discharge. She will need to be contacted if patient ready to discharge over the weekend. Magi is requesting an abdominal binder at discharge due to patient's history of self-injurious behavior. 33 year old male POD #4 diagnostic laparoscopy. Patient is non-verbal, developmental delay and lives in long-term. Weekend Client Engagement Manager Pager #: Please see Treatment Team for Care Management Weekend/Holiday coverage. SIGNATURE: Herman Salomon RN PATIENT NAME: Johnny Devine DATE: November 02, 2023 TIME: 11:42 AM PAGER/CONTACT #: [phone] [facility] 11-02-2023 Note HNO ID: [id number] Author: FRANCK MAGDALENO MD Service: General Surgery [...] Andrews MD Acute Care Surgery Resident PAGER [phone] INTERVAL EVENTS / PERTINENT REVIEW OF SYSTEMS: [...] * DORSAL SLIT FORESKIN EXCEPT - General [facility] 11-01-2023 Note HNO ID: [id number] Author: ANA LUISA FARR MD Service: General [...] , appreciate Recs (below); haskins out at [facility], f/u TOV - Recommend applying vaseline [...] Farr MD Acute Care Surgery Resident PAGER [phone] INTERVAL EVENTS / PERTINENT REVIEW OF SYSTEMS: [...] * DORSAL SLIT FORESKIN EXCEPT - General [facility] 10-31-2023 Note HNO ID: [id number] Author: ANA LUISA FARR MD Service: General [...] Farr MD Acute Care Surgery Resident PAGER [phone] INTERVAL EVENTS / PERTINENT REVIEW OF SYSTEMS: [...] Drain Duration Indwelling Urinary Catheter 10/30/23 0811 [facility] 10 Fr 1 day SURGERY/PROCEDURE: Procedure(s) and Anesthesia Type: * DORSAL SLIT FORESKIN EXCEPT - General [facility] 10-31-2023 Note HNO ID: [id number] Author: HEAVEN CAMACHO MD Service: Urology Author [...] clinical indicators: x Hypophosphatemia Other, please specify [facility] 10-31-2023 Note HNO ID: [id number] Author: BEATRIZ MEHTA MD Service: General Surgery [...] Mehta MD General Surgery Resident General Surgery: [id number] On nights (6 pm to 6 am) and on Weekends/Holidays, please page the on-call pager: [phone] 10/31/23 2:39 AM [facility] 10-31-2023 Note HNO ID: [id number] Author: JUAQUIN KRISHNAMURTHY RN Service: Nursing Author Type: Registered Nurse Type: Progress Notes Filed: 10/31/2023 01:48 Note Text: Messaged Night team Dr. Mehta about haskins drainage turning bloody. Patient is asleep and comfortable [facility] 10-30-2023 Note HNO ID: [id number] Author: JEREMIE JOAQUIN MD Service: ? Author [...] October 30, 2023 TIME: 8:11 AM CSN: [id number] [facility] 10-30-2023 Note HNO ID: [id number] Author: JEREMIE JOAQUIN MD Service: ? Author Type: Anesthesiologist Type: Anesthesia Procedure Notes Filed: 10/30/2023 11:59 Note Text: ANESTHESIOLOGY PROCEDURE NOTE Airway General Information Procedure Start Time/Medication Administration: 10/30/2023 7:46 AM Patient location during procedure: OR Timeout Performed Pre-procedure: timeout performed Consent Obtained: Yes Patient identity confirmed: arm band, care environmental field team member and patient Staffing Anesthesiologist: Jeremie Joaquin MD Performed by: SRNA and anesthesiologist Indications and Patient Condition Indications for airway management: anesthesia Preoxygenated: yes anesthesia circuit Patient position: sniffing Method: rapid sequence Cricoid Pressure: No Manual In-Line Stabilization: No Difficult Mask: No Final Airway Details Final airway type: endotracheal airway Final Endotracheal Airway: ETT Cuffed: yes Successful intubation technique: video laryngoscopy Devices used: Organizer Endotracheal tube insertion site: oral Blade size: [...] gastric contents in oropharynx. SIGNATURE: Nilay Zimmer APRN.PAPER SUPERVISOR PATIENT NAME: Johnny Devine DATE: October 30, 2023 TIME: 7:58 AM CSN: [id number] [facility] 10-30-2023 Note HNO ID: [id number] Author: FRANCK MAGDALENO MD Service: General Surgery [...] Andrews MD Acute Care Surgery Resident PAGER [phone] INTERVAL EVENTS / PERTINENT REVIEW OF SYSTEMS: [...] <1 day Indwelling Urinary Catheter 10/30/23 0130 [facility] 8 Fr <1 day SURGERY/PROCEDURE: Procedure(s) and Anesthesia Type: * DORSAL SLIT FORESKIN EXCEPT - General [facility] 10-29-2023 Note HNO ID: [id number] Author: HERMAN SALOMON RN Service: Care Management [...] by: Per Department Practice Potential Transition Plans Nursing Home/Supervised Living Advance Directives Current Advance Directive: Other Document: See Comment (Legal guardian) In Chart: Yes Up To Date and Valid: Yes Current Living Arrangements and Support Lives with: Other person(s) [facility] Type of Residence: Nursing Home Care Facility Name: [facility] Support: Home care staff, Family members How do you manage to accomplish the following: Independent: Ambulation Dependent: Bathe/Shower;Dress;Meals/Meal Prep;Going to the bathroom;Medication Management;Transportation to appointments/community Current Services/Equipment Current Post-Acute Service(s): None [place] of Choice Explained: [place] of Choice Given: No Reason Not Given: No placements necessary Are you interested in bedside delivery of your medications? No Discharge Planning Participant(s): Other person(s);Guardian Name/Relationship: Magi/Change Control Coordinator Patient/Family Comments: Caregiver Assessment: Caregiver is ready, willing and able to meet the patient's needs as recommended by the inter-professional team: Yes Name of Caregiver: [facility] Transport at Discharge: Transportation Arrangements: Car Destination: Home Needs Prior to Discharge: Needs Prior to Discharge: To Be Determined Post-Acute Discharge Plan: 33 year old male POD #0 diagnostic laparoscopy. Patient is non-verbal, developmental delay and lives in long-term. CM met with patient's legal guardian Delbert and program director group work Magi at bedside. Plan is to return to long-term at discharge. Per Magi [phone]. [phone], she will provide transport. Magi is requesting an abdominal binder at discharge due to patient's history of self-injurious behavior. CM will continue to follow for transitional care needs. SIGNATURE: Herman Salomon RN PATIENT NAME: Johnny Devine DATE: October 29, 2023 TIME: 4:00 PM CONTACT #: [phone] [facility] 10-29-2023 Note HNO ID: [id number] Author: KENZIE MORE APRN.PAPER SUPERVISOR Service: ? Author Type: Nurse Breaker Off Type: Anesthesia Procedure Notes Filed: 10/29/2023 10:18 Note Text: ANESTHESIOLOGY PROCEDURE NOTE Airway General Information Procedure Start Time/Medication Administration: 10/29/2023 10:00 AM Patient location during procedure: OR Timeout Performed Pre-procedure: timeout performed Consent Obtained: Yes Patient identity confirmed: arm band, care environmental field team member and family Staffing PAPER SUPERVISOR: Kenzie More APRN.PAPER SUPERVISOR Indications and Patient Condition Indications for airway management: anesthesia Preoxygenated: yes anesthesia circuit Method: rapid sequence Difficult Mask: No Final Airway Details Final airway type: endotracheal airway Final Endotracheal Airway: ETT Cuffed: yes Successful intubation technique: video laryngoscopy Devices used: Organizer Endotracheal tube insertion site: oral Blade: Raj Blade size: #4 ETT size (mm): 7.5 Placement verified by: capnometry Cormack-Lehane Classification: grade I - full view of glottis Number of attempts at approach: 1 Failed airway: no Unrecognized esophageal intubation: no Airway not difficult SIGNATURE: Kenzie More APRN.PAPER SUPERVISOR PATIENT NAME: Johnny Devine DATE: October 29, 2023 TIME: 10:17 AM CSN: [id number] [facility] 10-29-2023 Note HNO ID: [id number] Author: ANA LUISA FARR MD Service: General [...] Farr MD Acute Care Surgery Resident PAGER [phone] INTERVAL EVENTS / PERTINENT REVIEW OF SYSTEMS: [...] Anesthesia Type: * EXPLORATORY LAPAROTOMY - General [facility] 10-28-2023 History of Past i llness Narrative Problem Noted Date Diagnosed Date Resolved Date SBO (small bowel obstruction) 10/28/2023 10/31/2023 documented as of this encounter (statuses as of 11/12/2023) [facility]03-10-2024 History of Past illness Narrative* Problem Noted Date Diagnosed Date Resolved Date SBO (small bowel obstruction) 10/28/2023 10/31/2023 documented as of this encounter (statuses as of 11/29/2023) [facility]03-10-2024 History of Past illness Narrative* Problem Noted Date Diagnosed Date Resolved Date SBO (small bowel obstruction) 10/28/2023 10/31/2023 documented as of this encounter (statuses as of 12/04/2023) [facility]-10-2024 History of Past illness Narrative* Problem Noted Date Diagnosed Date Resolved Date SBO (small bowel obstruction) 10/28/2023 10/31/2023 documented as of this encounter (statuses as of 12/06/2023) [facility]11-27-2023 Hospital Discharge instructions* Discharge Instructions* Yobany [...] be sent through Care Everywhere. * Bradycardia (Faroese) documented in this [id number] Emergency department Note* Leila Cifuentes RN - 07/16/2023 8:01 AM EST Permission treat given from Cate legal guardian [id number] Emergency department Note* Leila Cifuentes RN - 07/16/2023 8:01 AM EST Permission treat given from Cate legal guardian documented in this [id number] Evaluation + Plan note Diagnostic Tests Pending * [place] [facility] 07/04/23 [facility]11-07-2023 Telephone encounter Note* Telephone Encounter - Shanna Sauceda RN - 06/26/2023 11:14 AM EST Informed Consent for dental surgery & Anesthesia consent obtained and scanned into [employer]. Scheduled for surgery 07/16/2023. [id number] Miscellaneous Notes* Telephone Encounter - Shanna Sauceda RN - 06/26/2023 11:14 AM EST Informed Consent for dental surgery & Anesthesia consent obtained and scanned into EPIC. Scheduled for surgery 07/16/2023. documented in this [id number] Evaluation note* PSE Appt H&P - Lacey Wilson MD - 06/22/2023 3:10 PM EDT Presurgical Evaluation (Pre-Admission Testing) Consultation Johnny Devine, [id number] 32 year old Male 06/22/2023 Consult placed [...] DENTAL RESTORATIONS; Surgeon: Harpreet Mccurdy DDS; Location: [facility] Center; Service: Dental ANESTHESIA [...] - referring and communicating with other health career resource technician (when not separately reported) - documenting clinical information in the electronic or other health record - independently interpreting results (not separately reported) and communicating results to the patient/family/caregiver - care coordination (not separately reported). Interviewer signature: Lacey Wilson MD 3:10 PM 06/22/2023 [id number] Miscellaneous Notes* PSE Appt H&P - Lacey Wilson MD - 06/22/2023 3:10 PM EDT Presurgical Evaluation (Pre-Admission Testing) Consultation Johnny Devine, [id number] 32 year old Male 06/22/2023 Consult placed [...] DENTAL RESTORATIONS; Surgeon: Harpreet Mccurdy DDS; Location: [facility]; Service: Dental ANESTHESIA [...] - referring and communicating with other health career resource technician (when not separately reported) - documenting clinical information in the electronic or other health record - independently interpreting results (not separately reported) and communicating results to the patient/family/caregiver - care coordination (not separately reported). Interviewer signature: Lacey Wilson MD 3:10 PM 06/22/2023 documented in this [id number] Miscellaneous Notes* Telephone Encounter - Lory [facility] - 05/18/2022 3:18 PM EDT [...] leave a message. * Telephone Encounter - [email or web address] - 05/17/2022 3:31 PM EDT Pt's aunt returning a call to Dr. Morales to discuss eye care for Johnny. Please try to reach her again at [phone] (Cate Tin) documented in this encounterProm[facility]22 Miscellaneous Notes* Telephone Encounter - [email or web address] - 05/08/2022 9:01 AM EDT Nurse from [facility] [place] [place] where he resides called for [facility] for his file. Attn: Melanie Pickard [phone]. Surgery schedulers name and # was provided. documented in this encounterProm[facility]09-16-2022 Miscellaneous Notes* Telephone Encounter - Grupo [...] ADLs currently. He currently lives in a long-term and has a significant history of self-injurious behaviors including banging his head on things and punching his eyes. She believes cataract tarun result of trauma, and I agree with her. These behaviors still happen on a weekly basis, and whilethere's 12/03 supervision at the long-term, he has a lot of private time [...] week. Grupo Morales MD documented in this encounterProm[facility]09-[facility]-2022 History of Present illness Narrative* Angel [...] 04, 2022 10:56 AM documented in this encounterPromedica [facility]08-10-2022 Telephone encounter Note * Telephone Encounter - Jose Miguel Jones - 03/29/2022 1:12 PM EDT Care Gaps Scheduling Contact Details: I did not contact pt. Encounter 07/15/21 indicates pt does not see providers at [facility] at this time. Health Maintenance Due: Medicare AWV / PCP Visit: Due Eye Exam: Not due Foot Exam: Not due Annual Blood Work: Due Mammogram: N/A FIT: Not due [id number] Miscellaneous Notes* Telephone Encounter - Jose Miguel Jones - 03/29/2022 1:12 PM EDT Care Gaps Scheduling Contact Details: I did not contact pt. Encounter 07/15/21 indicates pt does not see providers at [facility] at this time. 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 Other and combined forms of senile cataract [facility]* Diagnosis Caries- Primary Unspecified dental [...] prepuce and phimosis documented [facility]* Diagnosis Screening for genitourinary condition Screening for other and unspecified genitourinary condition documented [facility]* Diagnosis Caries- Primary Unspecified dental caries Pre-op testing- Primary Preoperative examination, unspecified Body mass index (BMI) 31.0-31.9, adult Caries Unspecified dental caries [facility]* Diagnosis Sigmoid volvulus (HCC)- Primary Volvulus [facility]* Diagnosis Caries- Primary Unspecified dental caries Pre-op testing- Primary Preoperative examination, unspecified Body mass index (BMI) 31.0-31.9, adult Caries Unspecified dental caries [facility] Diagnosis Caries- Primary Unspecified dental caries [facility] Diagnosis Alteration of awareness- Primary [facility]* Diagnosis Caries- Primary Unspecified dental caries documented in this encounter [facility] Work Phone: Evaluation note* Diagnosis Alteration of awareness- Primary documented in this encounter [facility] Narrative No data available for this section [facility] No data available for this section [facility] No data available for this section [facility] Summary Purpose Family History No Family [...] Diagnoses Caries Tio-Harpreet England, DDS [address] [place] [address] [facility] PRE SURGICAL EVAL [address] [place] [address] Referral ID Status Reason Start Date Expiration Date V isits Requested Visits Authorized [id number] Pending Review 05/25/2023 05/25/2024 1 1 Scheduling Instructions Your surgical team will reach out to you to schedule a preadmission testing appointment. Question Answer Reason for consult? Recommended PSE Risk Score Specialty Diagnoses / Procedures Referred By Contmigdalia t Referred To Contact Radiology Diagnoses Pre-op exam Procedures XR CHEST PA+LAT 2 VIEWS Franc Beyer MD [address] [place] [address] [facility] DIAGNOSTIC RADIOLOGY [address] [place], [place] [id number] Referral ID Status Reason Start Date Expiration Date Visits Re quested Visits Authorized [id number] Closed 06/22/2023 06/21/2024 1 1 Specialty Diagnoses / Procedures Referred By Contac t Referred To Contact Cardiology Diagnoses Bradycardia History of autism Nonverbal Moderate intellectual disability Yobany Smith PA-C [address] [place] [address] [facility] CARDIOLOGY HV [address] [place] [address] Referral ID Status Reason Start Date Expiration Date V isits Requested Visits Authorized [id number] Pending Review 07/16/2023 07/16/2024 3 3 Scheduling Instructions Please call the [facility] at [phone] to schedule an appointment if one was not made for you today. Question Answer What is the primary reason for consult? Abnormal EKG [13] - nonverbal patient, asymptomatic bradycardia on lopressor At what location would you like the patient to be seen? [facility] ([address]) Specialty Diagnoses / Procedures Referred By Contac t Referred To Contact Colon and Rectal Surgery Diagnoses Sigmoid volvulus (HCC) Procedures CONSULT TO COLO-RECTAL SURGERY OFFICE/OUTPATIENT [facility] 60 MINUTES Victoria Sanchez APRN.LEAD SQL DEVELOPER [address] [place], [place] [id number] Juventino Fairbanks MD [address] [place] [id number] Referral ID Status Reason Start Date Expiration Date Visits Requested Visits Authorized [id number] Authorized PCP Requested Referral 12/20/2023 12/19/2024 1 1 Specialty Diagnoses / Procedures Referred By Contac t Referred To Contact Anesthesiology Diagnoses Harpreet Anand DDS [address] [place] [phone] [facility] PRE ADMISSION TESTING [address] [place] [address] Referral ID Status Reason Start Date Expiration Date V isits Requested Visits Authorized [id number] Authorized 10/10/2023 10/10/2024 1 1 Scheduling Instructions [...] PA+LAT 2 VIEWS Franc Beyer MD [address] [place] [address] [facility] DIAGNOSTIC RADIOLOGY [address] [place] [address] Referral ID Status Reason Start Date Expiration Date Visits Re quested Visits Authorized [id number] Closed 06/22/2023 06/21/2024 1 1 Reason Onset Date Comments Pre-surgical Evaluation 06/26/2023 Informed Consent for dental surgery & Anesthesia consent obtained Reason Comments bradycardia Low HR (33) Specialty Diagnoses / Procedures Referred By Johan mcfadden Referred To Contact Ambulatory Surgery Diagnoses Caries Caries [K02.9] Procedures UNLISTED PROCEDURE, DENTOALVEOLAR STRUCTURES ANESTHESIA, INTRAORAL PROC, W/BX; NOS DENTAL RESTORATIONS Harpreet Mccurdy, DDS [address] [place] [address] [facility] [address] [place] [phone] Phone: [phone] Referral ID Status Reason Start Date Expiration Date Visits Re quested Visits Authorized [id number] 3 3 Reason Comments [employer] - Other Reason Comments Post Op Reason Onset Date Comments Pre-surgical Evaluation 12/25/2023 DD adult dental restorations 12/27 under [place] at [facility]. PAT completed - consent request sent to main - see future encounter for results. [facility] confirmed [facility], [place] address, and 0900 arrival time Reason Onset Date Comments Pre-surgical Evaluation 12/25/2023 Anesthes ia Attestaion for dental surgery scanned in manager social mediapayroll manager Diagnoses / Procedures Referred By Johan mcfadden Referred To Contact Ambulatory Surgery Diagnoses Caries Caries [[id number]] Procedures UNLISTED PROCEDURE, DENTOALVEOLAR STRUCTURES ANESTHESIA, INTRAORAL PROC, W/BX; NOS DENTAL RESTORATIONS Mari Traore DMD [address] [place], [place] [id number] [facility] [address] [place] [phone] Phone: [phone] Referral ID Status Reason Start Date Expiration Date Visits Re quested Visits Authorized [id number] 3 3 Reason Comments Seizures Reason Onset Date Comments Medical Record Review 12/16/2024 Care Teams (unrecognized sec tion and content) Physical Therapist Technician Relationship Specialty Start Date End Date Aileen Corcoran DDS [address] [place], [place] [phone] Resident Dentistry 08/20/20 Physical Therapist Technician Relationship Specialty Start Date End Date Aileen Corcoran DDS [address] [place] [address] Resident Dentistry 08/20/20 Physical Therapist Technician Relationship Specialty Start Date End Date Aileen Corcoran DDS [address] [place], [place] [phone] Resident Dentistry 08/20/20 Physical Therapist Technician Relationship Specialty Start Date End Date Aileen Corcoran DDS [address] [place], [place] [phone] Resident Dentistry 08/20/20 Physical Therapist Technician Relationship Specialty Start Date End Date Aileen Corcoran DDS [address] [place], [place] [phone] Resident Dentistry 08/20/20 Physical Therapist Technician Relationship Specialty Start Date End Date Aileen Corcoran DDS [address] [place], [place] [phone] Resident Dentistry 08/20/20 Physical Therapist Technician Relationship Specialty Start Date End Date Aileen Corcoran DDS [address] [place] [address] Resident Dentistry 08/20/20 Physical Therapist Technician Relationship Specialty Start Date End Date Aileen Corcoran DDS [address] [place] [address] Resident Dentistry 08/20/20 Physical Therapist Technician Relationship Specialty Start Date End Date Aileen Corcoran DDS [address] [place] [phone] Resident Dentistry 08/20/20 Physical Therapist Technician Relationship Specialty Start Date End Date Aileen Corcoran DDS [address] [place] [phone] Resident Dentistry 08/20/20 Physical Therapist Technician Relationship Specialty Start Date End Date Aileen Corcoran DDS [address] [place] [address] Resident Dentistry 08/20/20 Physical Therapist Technician Relationship Specialty Start Date End Date Aileen Corcoran DDS [address] [place] [address] Resident Dentistry 08/20/20 Physical Therapist Technician Relationship Specialty Start Date End Date Aileen Corcoran DDS [address] [place] [address] Resident Dentistry 08/20/20 Ling Coffman APRN-CNP [address] [place] [address] [employer]ER AND POLISHER Anesthesiology 01/19/24 Physical Therapist Technician Relationship Specialty Start Date End Date Aileen Corcoran DDS [address] [place] [address] Resident Dentistry 08/20/20 Ling Coffman APRN-CNP [address] [place] [phone] [employer]ER [employer]ER Anesthesiology 01/19/24 Source Comments (unrecognize d section and content) In the event this informatio n is protected by the [facility] Confidentiality of Alcohol and Drug Abuse Patient Records regulations: The Federal rules restrict any use of the information to criminally investigate or prosecute any alcohol or drug abuse patient.[facility] the event this information is protected by the Federal Confidentiality of Alcohol and Drug Abuse Patient Records regulations: The Federal rules restrict any use of the information to criminally investigate or prosecute any alcohol or drug abuse patient.[facility] HospitalIn the event this information is protected by the Federal Confidentiality of Alcohol and Drug Abuse Patient Records regulations: The Federal rules restrict any use of the information to criminally investigate or prosecute any alcohol or drug abuse patient.[facility] HospitalIn the event this information is protected by the Federal Confidentiality of Alcohol and Drug Abuse Patient Records regulations: The Federal rules restrict any use of the information to criminally investigate or prosecute any alcohol or drug abuse patient.[facility] HospitalIn the event this information is protected by the Federal Confidentiality of Alcohol and Drug Abuse Patient Records regulations: The Federal rules restrict any use of the information to criminally investigate or prosecute any alcohol or drug abuse patient.[facility] HospitalIn the event this information is protected by the Federal Confidentiality of Alcohol and Drug Abuse Patient Records regulations: The Federal rules restrict any use of the information to criminally investigate or prosecute any alcohol or drug abuse patient.[facility] HospitalIn the event this information is protected by the Federal Confidentiality of Alcohol and Drug Abuse Patient Records regulations: The Federal rules restrict any use of the information to criminally investigate or prosecute any alcohol or drug abuse patient.[facility] HospitalIn the event this information is protected by the Federal Confidentiality of Alcohol and Drug Abuse Patient Records regulations: The Federal rules restrict any use of the information to criminally investigate or prosecute any alcohol or drug abuse patient.[facility] HospitalIn the event this information is protected by the Federal Confidentiality of Alcohol and Drug Abuse Patient Records regulations: The Federal rules restrict any use of the information to criminally investigate or prosecute any alcohol or drug abuse patient.[facility] HospitalIn the event this information is protected by the Federal Confidentiality of Alcohol and Drug Abuse Patient Records regulations: The Federal rules restrict any use of the information to criminally investigate or prosecute any alcohol or drug abuse patient.[facility] (unrecognized sect ion and content) No Status Records FoundNo Status Records FoundNo Status Records FoundNo Status Records FoundNo Status Records FoundNo Status Records Found INFORMATION SOURCE (unrecogn ized section and content) DATE CREATED AUTHOR 01/26/2023 [facility] DATE CREATED AUTHOR AUTHOR'S ORGANIZ ATION 01/13/2024 [facility] DATE CREATED AUTHOR AUTHOR'S ORGANIZ ATION 02/15/2024 [facility] DATE CREATED AUTHOR AUTHOR'S ORGANIZ ATION 02/22/2024 [facility] DATE CREATED AUTHOR AUTHOR'S ORGANIZ ATION 12/04/2024 [facility] DATE CREATED AUTHOR AUTHOR'S ORGANIZ ATION 12/17/2024 [facility] Scheduled Active and Recently Administ ered [...] socket sites after extraction) lidocaine-epinephrine (XYLOCAINE) 2 %-1:[id number] injection (CANCELED) PRN, Starting on Sun12/28/23 at [...] BE BASED ON THE PRIMARY CLINICAL RECORDS. [facility]. provides no warranty or guarantee of the accuracy or completeness of information in this document.
== END 2025-01-08 07:47 | disposition home or self-care (01) ==
LOC: LAB 07:53
PROVIDERS: PCP Family Medicine; Visit Provider Family Medicine
DX: Z79.899 Other long term (current) drug therapy (principal); G40.909 Epilepsy, unspecified, not intractable, without status epilepticus; F31.9 Bipolar disorder, unspecified
CPT/HCPCS: 36415; 80164

== ENCOUNTER 2025-02-03 06:51 | Outpatient (OUT) | payer MEDICARE, MEDICAID, SELFPAY ==
--- OUTSIDE RECORDS SUMMARY | 2025-02-03 06:55 | XMS_ITS | CCD ---
Author Organization [facility] CliniSyga Care Team Providers Care Police Magistrate Name Role Phone Jewell MATA, Gallagher Unavailable [...] Attending Unavailable CRANE, HERMAN Admitting Unavailable Markiv FITNESS TRAINER-TRAVELING SECRETARY, Ling Unavailable Unavailable Primary Care Provider Unavailabl [...] Clarithromycin Drug Allergy 05-04-20 Other: See Comments [facility] (20 sources) Clarithromycin; Translations: [CLARITHROMYCIN] Propensity to adverse reactions to drug 06-12-20 18 Other [facility] Work Phone: (9 sources) Clarithromycin Drug Allergy 05-04-20 Other: See Comments [facility] (1 source) Clarithromycin Drug Allergy [facility] Repository Medications Current Medications Medication Drug Class(es) [...] mouth Active take 1 capsule by mo [facility] once daily at bedtime loratadine 10 mg [...] 4 mg/0.1 mL nasal liquid Use 1 Wink in one nostril (alternate sides) as needed [...] nausea or vomiting Active polyethylene glycol 3350 15886 mg powder for oral solution (20 sources) [...] t wo times a day. 1999 sennosides, alf 8.6 mg oral capsule (20 sources) Sennosides [...] 08-25-19 Chronic Other aftercare (5 sources) Other intermission coordinator (current) drug therapy; Translations: [OTH CASH APPLICATIONS ASSOCIATE CURRENT DRUG THERAPY] Onset: 12-04-19 Episodic Other [...] Remisol Chem Physician Orderon 02-13-2024 Physician Order [id number]# 1.00TIFF Normal [facility] Valproic Acidon 02-13-2024 Valpro Acid Lvl 98 microgram/mL Normal 50-99 Fish er [facility] Comment on above: Performed By: #### 2 [id number] #### [facility] Laboratory [address] [place] [address] [facility] 01-11-2024 VÍCTORN Telephone (PATRICK) JOHNNY DEVINE ([id number]) 1990 M Date Time Provider Department 01/11/24 CRIS DINH During your visit today, we recorded the following information about you: Cris Dinh, RN 01/11/2024 1:50 PM Signed Jessica from [facility] [phone] is caller. 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 Normal [facility] Anesthesia Preprocedure Eval nikolai 12-28-2023 Instrument And Control Technician Authentication Interface Message Text ASA: 3 NPO [...] and physical examination. Attestation: MHPATFORM Normal [email or web address] Anesthesia Transfer Of Careo n 12-28-2023 Instrument And Control Technician Authentication Interface Message Text Patient taken to [...] RESTORATIONS; Surgeon: Harpreet Mccurdy DDS; Location: [facility]; Service: Dental Allergies: Biaxin [clarithromycin] Basic Operating Room Facts: Surgeon(s): Mari Traore DMD Anesthesiologist: Linda Saldivar MD AUTOMOTIVE SERVICES MANAGER: Selena Camacho APRN-CRNA DENTAL RESTORATIONS (Bilateral: Mouth) [...] [phone] Comment: The [place] Diabetes Association (ADA) provides guidance for cutoff [...] Standards of Medical Care in Diabetes 2016, [place] Diabetes Association. Diabetes Care. 2016.39(Suppl 1). 8 0.70 8.2 11/06/23 0943 [phone] 83 Comment: The [place] Diabetes Association (ADA) provides guidance for cutoff [...] Standards of Medical Care in Diabetes 2016, [place] Diabetes Association. Diabetes Care. 2016.39(Suppl 1). 6 0.69 8 (more content not included)... Normal [facility] Blood Attestationon 12-28-19 Instrument And Control Technician Authentication Interface Message Text Blood Attestation: ATTESTATION OF INFORMED CONSENT FOR BLOOD: The transfusion of blood and/or blood components were discussed with the patient and/or legal small business representative. The risks, benefits and alternatives were reviewed. Questions regarding blood transfusions were answered. The patient /or the patient's legal small business representative agree with the plan for transfusion of blood and/or blood components. Normal [facility] Brief Operative Noteon 12-27 Instrument And Control Technician Authentication Interface Message Text Brief Operative Note PHE OR 3 Johnny Devine 33 year old male Surgical Contact Serial Number: [id number] Preoperative Diagnosis: Pre-op Diagnosis * Caries [K02.9] Moderate intellectual disability [F79] Postoperative Diagnosis: Moderate intellectual disability [F79] Procedures: Comprehensive exam [98213] Full mouth X-ray [ 86235] Extractions [24448] Restorations [47038] Prophy 62848] Fluoride treatment [79916] Surgeon(s): Surgeon(s): Mari Traore DMD Staff: Elementary Esl Teacher Nurse: Henrietta Johnson Anesthesia: General Anesthesia Staff: [...] Whiting DDS 12/28/2023 1;48 pm Normal [facility] OP Noteon 12-28-2023 Instrument And Control Technician Authentication Interface Message Text Surgical Case Number Data Unavailable Operating Room Data Unavailable Preoperative Diagnosis(es): Pre-op Diagnosis * Caries [K02.9] Moderate intellectual disability [F79] Postoperative Diagnosis(es): Moderate intellectual disability[F79] @ENCORD@ Surgeon: Dr. Mari Traore DMD Flow Nurse Surgeon: Reema Whiting DDS Anesthesia: General- Nasal [...] 4 mg/0.1 mL nasal liquid Use 1 Wink in one nostril (alternate sides) as needed [...] Whiting DDS 12/28/2023 1:53 pm Normal [facility] Progress Noteson 12-28-2023 Instrument And Control Technician Authentication Interface Message Text Patient takes his seizure medication with pudding, facility held them today for dental surgery. Caregiver brought capsules with them to pre-op. Per Dr. Saldivar, divalproex 125 mg x 4 capsules (500 mg) were opened and sprinkles given to patient with 50 mL of water in pre-op. 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 MB cusp tip was visualized upon extraction of #17, but well encased in bone and would not be exposed to the oral cavity following healing of the extraction site. Preoperative Diagnosis(es): Pre-op Diagnosis * Caries [K02.9] Moderate intellectual disability [F79] Postoperative Diagnosis(es): Moderate intellectual disability[F79] Surgeon: Dr. Mari Traore, ANIYAH Flow Nurse Surgeon: Reema Whiting DDS Anesthesia: General- Nasal [...] at end of surgery: Stable Normal [facility] PAT Appt H DESTINY Hawkins Instrument And Control Technician Authentication Interface Message Text Addendum 12/21/2023- Caregiver @ [facility] facility called to relay that patient unable to take medications without pudding. Per Dr. Newell: Instruct them to take the meds at night. Please then coordinate with either the anesthesia team or surgical team to order IV depacon so he can get his depakote. I would have the facility bring his oral depakote for after surgery If they can't get the depacon at [place] PAT RN updated nursing staff @ [facility]. Normal [facility] BASIC METABOLIC PANELon 05-0 Anion gap [Moles/Vol] 13 mmol/L Normal 10-20 [facility] Comment on above: Performed By: #### C H8 ####S PATHOLOGY [id number] [place], [place], Calcium [Mass/Vol] 9.9 mg/dL Normal 8.6-10.3 [facility] Comment on above: Performed By: #### C H8 ####S PATHOLOGY [id number] [place], [place], Chloride [Moles/Vol] 106 mmol/L Normal 98-107 [email or web address] Comment on above: Performed By: #### C H8 ####S PATHOLOGY [id number] [place], CO2 [Moles/Vol] 25 mmol/L Normal 21-31 [facility] Comment on above: Performed By: #### C H8 ####MHS PATHOLOGY [id number] [place], [place], Creatinine [Mass/Vol] 0.93 mg/dL Normal 0.70-1.30 [facility] Comment on above: Performed By: #### C H8 ####S PATHOLOGY [id number] [place], ESTIMATED GFR (CKD-EPI) 113 mL/min/1.73sqm Normal >=60 [facility] Comment on above: Result Comment: 2020 [...] Inclusion of Race in Diagnosing Kidney Disease. [place] Journal of Kidney Diseases 2021;79(2):268-88.e1. 2. N Engl J Med 2020 Vol. 385 Issue 19 Pages 6501-7871 Performed By: #### C H8 ####MHS PATHOLOGY [id number] [place], [place], Glucose [Mass/Vol] 115 mg/dL High 74-109 [email or web address] Comment on above: Performed By: #### C H8 ####M[facility] PATHOLOGY [id number] [place], Potassium [Moles/Vol] 4.6 mmol/L Normal 3.5-5.0 [email or web address] Comment on above: Performed By: #### C H8 ####S PATHOLOGY [id number] [place], Sodium [Moles/Vol] 139 mmol/L Normal 136-145 [email or web address] Comment on above: Performed By: #### C H8 ####[facility] PATHOLOGY [id number] [place], Urea nitrogen [Mass/Vol] 15 mg/dL Normal 7-25 [email or web address] Comment on above: Performed By: #### C H8 ####[facility] PATHOLOGY [id number] [place], [place], Basic metabolic 2000 panelon 12-19-2023 Anion [...] Inclusion of Race in Diagnosing Kidney Disease. [place] Journal of Kidney Diseases 2021;79(2):268-88.e1. 2. N Engl J Med 1 Vol. 385 Issue 19 Pages 8057-4879 Glucose [Mass/Vol] 115 mg/dL High 74 - 109 mg/dL [facility] Interpretation and review of laboratory results Abnormal [facility] Potassium [Moles/Vol] 4.6 mmol/L 3.5 - 5.0 mmol/L [facility] Sodium [Moles/Vol] 139 mmol/L 136 - 145 mmol/L [facility] Urea nitrogen [Mass/Vol] 15 mg/dL 7 - 25 mg/dL [facility] PAT Appt H AND Ross Instrument And Control Technician Authentication Interface Message Text Patient was identified by name and date of . Jaswinder Arredondo Patient at risk for falls:No Falls Risk protocol implemented: N/A Normal [email or web address] Patient Instructionson 12-18 Instrument And Control Technician Authentication Interface Message Text [facility] staff: Since patient is unable to take [...] for pain. Please hold all Vitamin E, [place] 3, fish oil and herbal supplements for 1 week prior to surgery. Please use this LIST to prepare for your surgery/procedure: ? Assume that any lab or testing done during your Pre-admission testing appointment is within normal limits unless otherwise contacted. ? Expect a call from [facility] one business day prior to surgery for [...] your Preparing for Your Surgery/Procedure booklet or [email or web address] if you have questions. Contact the Pre-Admission Testing department at [phone] or your surgeon's office with any questions [...] stay with you after surgery. Please call [employer] if you need transportation assistance or have concerns about going home [phone]. ? SLEEP APNEA PATIENTS: Bring your sleep apnea machine and mask. ? PLEASE BE ON TIME. A late arrival may result in the cancellation/ delay of your surgery. 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] Obesity, Class I, BMI 30-34.9 [E66.9] 11/02/2023 S/P laparoscopy [Z98.890] 11/05/2023 Acute postoperative pain [G89.18] 11/05/2023 Oropharyngeal dysphagia [R13.12] 11/06/2023 Epilepsy ([facility]) [G40.909] 11/06/2023 Level of Service: OFFICE/OUTPATIENT EST PT MAY NOT REQ PHYS/QHP [27245] LOS History for Encounter Encounter Status:Closed by OSCAR RUIZ on 12/03/23 [facility] Teresita 11-28-2023 CNOV Office Visit (CORTEZ ) JOHNNY DEVINE ([id number]) 1990 M Date Time Provider Department 11/28/23 [...] Victoria Sanchez APRN.CNP 11/28/2023 10:[address] [facility] Clinic Date: November 28, 2023 Johnny Devine 33 year old male CHIEF COMPLAINT: Patient presents for follow up from surgery. HPI: Here for follow up after diagnostic laparotomy on 10/29/[address] Robin. Patient also underwent a dorsal slit procedure with urology on 10/30/2023 for paraphimosis. Patient with a resident buyer today to discuss his postoperative course since [...] (more content not included)... 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: Engineer Process - Other [1352] Prescriptions as of 11/12/2023 - cloNIDine HCl [...] 11/12/2023 Noted Resolved SBO (small bowel obstruction) ([facility]) [K56.609] 10/28/2023 10/31/2023 Bipolar disorder ([facility]) [F31.9] 09/16/2018 Hypothyroidism [E03.9] 09/16/2018 Obsessive-compulsive disorder [F42.9] 09/16/2018 Moderate intellectual disability [F71] 09/16/2018 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] Obesity, Class I, BMI 30-34.9 [E66.9] 11/02/2023 S/P laparoscopy [Z98.890] 11/05/2023 Acute postoperative pain [G89.18] 11/05/2023 Oropharyngeal dysphagia [R13.12] 11/06/2023 Epilepsy ([facility]) [G40.909] 11/06/2023 Encounter Status:Closed by CRIS DINH on 11/12/23 Normal [facility] Basic metabolic 2000 panelon 11-07-2023 Anion gap [Moles/Vol] 10 mmol/L Normal 9-18 [facility] Comment on above: Order Comment: Speci men Type: BLOOD SPECIMEN Ordering Facility: [facility] Address: [address] [place] [address] Performed By: #### 2 4321-2, 79493-0, 2777- #### [facility] CLIA [id number] [address] [place] [address] [place] Calcium [Mass/Vol] 8.2 mg/dL Low 8.5-10.2 [facility] Comment on above: Order Comment: Speci men Type: BLOOD SPECIMEN Ordering Facility: [facility] Address: [address] [place] [address] Performed By: #### 2 4321-2, 94371-1, 2777-1 #### [facility] CLIA [id number] [address] [place] [address] [place] Chloride [Moles/Vol] 110 mmol/L High 97-105 [facility] Comment on above: Order Comment: Speci men Type: BLOOD SPECIMEN Ordering Facility: [facility] Address: [address] [place] [address] Performed By: #### 2 4321-2, 01281-5, 2777-1 #### [facility] CLIA [id number] [address] [place] [address] [place] CO2 [Moles/Vol] 21 mmol/L Low 22-30 [facility] Comment on above: Order Comment: Speci men Type: BLOOD SPECIMEN Ordering Facility: [facility] Address: [address] [place] [address] Performed By: #### 2 4321-2, 39002-1, 2777-1 #### [facility] CLIA [id number] [address] [place] [address] [place] Creatinine [Mass/Vol] 0.70 mg/dL Low 0.73-1.22 [facility] Comment on above: Order Comment: Speci men Type: BLOOD SPECIMEN Ordering Facility: [facility] Address: [address] [place] [address] Performed By: #### 2 4321-2, 38073-4, 2777-1 #### [facility] CLIA [id number] [address] [place] [address] [place] Creatinine and Glomerular filtration rate.predicted panel (S/P/Bld) 126 mL/min/1.73m??? Normal >=60 [facility] Comment on above: Order Comment: Speci men Type: BLOOD SPECIMEN Ordering Facility: [facility] Address: [address] [place] [address] Result Comment: Lor mated Glomerular Filtration Rate [...] By: #### 2 4321-2, , 2776-08 #### [facility] CLIA [id number] [address] [place] [id number] [place] Glucose [Mass/Vol] 91 mg/dL Normal 74-99 [facility] Comment on above: Order Comment: Sana zuñiga Type: BLOOD SPECIMEN Ordering Facility: [facility] Address: [address] [place] [address] Result Comment: The [place] Diabetes Association (ADA) provides guidance for cutoff [...] Standards of Medical Care in Diabetes 2016, [place] Diabetes Association. Diabetes Care. 2016.39(Suppl 1). Performed By: #### 2 1-2, , 2776-08 #### [facility] CLIA [id number] [address] [place], [place] [address] [place] Potassium [Moles/Vol] 4.4 mmol/L Normal 3.7-5.1 [facility] Comment on above: Order Comment: Sana zuñiga Type: BLOOD SPECIMEN Ordering Facility: [facility] Address: [address] [place] [address] Performed By: #### 2 4321-2, , 2776-08 #### [facility] CLIA [id number] [address] [address] [place] Sodium [Moles/Vol] 141 mmol/L Normal 136-144 [facility] Comment on above: Order Comment: Speci men Type: BLOOD SPECIMEN Ordering Facility: [facility] Address: [address] [place] [address] Performed By: #### 2 4321-2, 56776-9, 27702-17 #### [facility] CLIA [id number] [address] [place] [address] [place] Urea nitrogen [Mass/Vol] 8 mg/dL Low 9-24 [facility] Comment on above: Order Comment: Speci men Type: BLOOD SPECIMEN Ordering Facility: [facility] Address: [address] [place] [address] Performed By: #### 2 4321-2, , 2776-08 #### [facility] CLIA [id number] [address] [place] [address] [place] CBC panel Auto (Bld)on 11-06 Erythrocyte distribution width (RBC) [Ratio] 15.1 % High 11.5-15.0 [facility] Comment on above: Order Comment: Speci men Type: BLOOD SPECIMENOrdering Facility: [facility] Address: [address] [place] [address] Performed By: #### 5 8410-2 ####[facility] [id number] [place] [address] [place] Hematocrit (Bld) [Volume fraction] 31.4 % Low 39.0-51.0 [facility] Comment on above: Order Comment: Speci men Type: BLOOD SPECIMENOrdering Facility: [facility] Address: [address] [place] [address] Performed By: #### 5 8410-2 ####[facility] [id number] [place] [address] [place] Hemoglobin (Bld) [Mass/Vol] 9.9 g/dL Low 13.0-17.0 [facility] Comment on above: Order Comment: Speci men Type: BLOOD SPECIMENOrdering Facility: [facility] Address: [address] [place] [address] Performed By: #### 5 8410-2 ####[facility] [id number] [place] [address] [place] MCH (RBC) [Entitic mass] 27.3 pg Normal 26.0-34.0 [facility] Comment on above: Order Comment: Speci men Type: BLOOD SPECIMENOrdering Facility: [facility] Address: [address] [place] [address] Performed By: #### 5 8410-2 ####[facility] [id number] [place] [address] [place] MCHC (RBC) [Mass/Vol] 31.5 g/dL Normal 30.5-36.0 [facility] Comment on above: Order Comment: Speci men Type: BLOOD SPECIMENOrdering Facility: [facility] Address: [address] [place] [address] Performed By: #### 5 8410-2 ####[facility] [id number] [place] [address] [place] MCV (RBC) [Entitic vol] 86.5 fL Normal 80.0-100.0 [facility] Comment on above: Order Comment: Speci men Type: BLOOD SPECIMENOrdering Facility: [facility] Address: [address] [place] [address] Performed By: #### 5 8410-2 ####[facility] [id number] [place] [address] [place] Nucleated RBC (Bld) [#/Vol] 10*3/uL Normal <0.01 [facility] Comment on above: Order Comment: Speci men Type: BLOOD SPECIMENOrdering Facility: [facility] Address: [address] [place] [address] Performed By: #### 5 8410-2 ####[facility] [id number] [place] [address] [place] Platelet mean volume (Bld) [Entitic vol] 9.4 fL Normal 9.0-12.7 [facility] Comment on above: Order Comment: Speci men Type: BLOOD SPECIMENOrdering Facility: [facility] Address: [address] [place] [address] Performed By: #### 5 8410-2 ####[facility] [id number] [place] [address] [place] Platelets (Bld) [#/Vol] 215 10*3/uL Normal 150-400 [facility] Comment on above: Order Comment: Speci men Type: BLOOD SPECIMENOrdering Facility: [facility] Address: [address] [place] [address] Performed By: #### 5 8410-2 ####[facility] [id number] [place] [address] [place] RBC (Bld) [#/Vol] 3.63 10*6/uL Low 4.20-6.00 [facility] Comment on above: Order Comment: Speci men Type: BLOOD SPECIMENOrdering Facility: [facility] Address: [address] [place] [address] Performed By: #### 5 8410-2 ####[facility] [id number] [place] [address] [place] WBC (Bld) [#/Vol] 8.67 10*3/uL Normal 3.70-11.00 [facility] Comment on above: Order Comment: Speci men Type: BLOOD SPECIMENOrdering Facility: [facility] Address: [address] [place] [address] Performed By: #### 5 8410-2 ####[facility] [id number] [place] [address] [place] CNCOon 11-07-2023 CNCO Letter Text Normal [facility] CNDSon 11-07-2023 CNDS HNO ID: [id number] Author: SAMUEL ROBIN MD Service: General Surgery [...] PSH who presents as a transfer to [facility] from [facility] ED for further management of small bowel obstruction. Given patient's baseline cognitive status, NGT difficult to maintain. He was admitted to the [facility] under care of general surgery and was taken to the OR the following morning for diagnostic laparoscopy. Intra-operative findings demonstrated no adhesins, no apparent hernias, dilated small/large bowel, redundant sigmoid c/f volvulus, easily reduced. After recovering in the PACU, he was taken to the [facility] with NGT in place. Patient arrived to [facility] with 8 Fr pediatric haskins catheter in [...] in home regimen. Stable for discharge to fdc. Neurology Recommendations on Discharge: - Discharge on anti-epileptic medications as prescribed - Please schedule outpatient follow-up with epilepsy - Please order outpatient MRI without contrast (3T epilepsy protocol) to be done prior to epilepsy appointment Active Hospital Problems Diagnosis Date Noted Oropharyngeal dysphagia 11/06/2023 Epilepsy ([facility]) 11/06/2023 S/P laparoscopy 11/05/2023 Acute postoperative pain 11/05/2023 Obesity, Class I, BMI 30-34.9 11/02/2023 Developmental non-verbal disorder Obsessive-compulsive disorder 09/16/2018 Moderate intellectual disability 09/16/2018 Hypothyroidism 09/16/2018 Bipolar disorder ([facility]) 09/16/2018 Resolved Hospital Problems Diagnosis Date Noted Date Resolved SBO (small bowel obstruction) ([facility]) 10/28/2023 10/31/2023 Transitions of Care Critical Issues: Follow up with Dr. Fairbanks MRI as outpatient and follow up with Neurology in 2 weeks LABS AND PROCEDURES PENDING AT DISCHARGE: No pending results. CONSULTING TEAMS DURING HOSPIT (more content not included)... Normal [facility] CONSULT PROGon 11-07-2023 CONSULT PROG HNO ID: [id number] Author: BRUCE RESENDIZ MD Service: Neurology General [...] November 06, 2023 TIME: 8:36 AM Normal [facility] Magnesium SerPl-mCncon 11-06 Magnesium [Mass/Vol] 2.1 mg/dL Normal 1.7-2.3 [facility] Comment on above: Order Comment: Speci men Type: BLOOD SPECIMEN Ordering Facility: [facility] Address: [address] [place] [address] Performed By: #### 2 4321-2, 29937-0, 2777-1 #### [facility] CLIA [id number] [address] [place] [address] [place] NURSING PROGon 11-07-2023 NURSING PROG HNO ID: [id number] Author: MAYANK READ, RN Service: Nursing Author Type: Registered Nurse Type: Nursing Progress Note Filed: 11/07/2023 14:53 Note Text: Pt is discharged to a [facility], signal supervisor Magi just arrived to pickling drum operator. Reviewed discharge paper works and handed it to the signal supervisor. IV removed, pt tolerated. EEG removed by rv technician. Normal [facility] NUTRITIONon 11-07-2023 NUTRITION HNO ID: [id number] Author: RAFAELA COOL DTR Service: Nutrition Therapy Author Type: Study Abroad Advisor Type: Nutrition Filed: 11/07/2023 13:38 Note Text: NUTRITION THERAPY PROFILER NOTE SERVICE DATE: 11/07/2023 SERVICE TIME: 999 [...] November 07, 2023 TIME: 1:38 PM Normal [facility] Phosphate SerPl-mCncon 11-06 Phosphate [Mass/Vol] 4.1 mg/dL Normal 2.7-4.8 [facility] Comment on above: Order Comment: Speci men Type: BLOOD SPECIMEN Ordering Facility: [facility] Address: [address] [place] [address] Performed By: #### 2 4321-2, , 2776-08 #### [facility] CLIA [id number] [address] [place] [address] [place] Basic metabolic 2000 panelon 11-06-2023 Anion gap [Moles/Vol] 16 mmol/L Normal 9-18 [facility] Comment on above: Order Comment: Speci men Type: BLOOD SPECIMEN Ordering Facility: [facility] Address: [address] [place] [address] Performed By: #### 2 4321-2, , 2776-08 #### [facility] CLIA [id number] [address] [place] [address] [place] Calcium [Mass/Vol] 8.9 mg/dL Normal 8.5-10.2 [facility] Comment on above: Order Comment: Speci men Type: BLOOD SPECIMEN Ordering Facility: [facility] Address: [address] [place] [address] Performed By: #### 2 4321-2, 60469-4, 2776- #### [facility] CLIA [id number] [address] [place] [address] [place] Chloride [Moles/Vol] 112 mmol/L High 97-105 [facility] Comment on above: Order Comment: Speci men Type: BLOOD SPECIMEN Ordering Facility: [facility] Address: [address] [place] [address] Performed By: #### 2 4321-2, 45758-1, 2777-1 #### [facility] CLIA [id number] [address] [place] [address] [place] CO2 [Moles/Vol] 18 mmol/L Low 22-30 [facility] Comment on above: Order Comment: Speci men Type: BLOOD SPECIMEN Ordering Facility: [facility] Address: [address] [place] [address] Performed By: #### 2 4321-2, 62272-4, 2777-1 #### [facility] CLIA [id number] [address] [place] [address] [place] Creatinine [Mass/Vol] 0.69 mg/dL Low 0.73-1.22 [facility] Comment on above: Order Comment: Speci men Type: BLOOD SPECIMEN Ordering Facility: [facility] Address: [address] [place] [address] Performed By: #### 2 4321-2, 53253-3, 2777-1 #### [facility] CLIA [id number] [address] [place] [address] [place] Creatinine and Glomerular filtration rate.predicted panel (S/P/Bld) 127 mL/min/1.73m??? Normal >=60 [facility] Comment on above: Order Comment: Speci men Type: BLOOD SPECIMEN Ordering Facility: [facility] Address: [address] [place] [address] Result Comment: Lor mated Glomerular Filtration Rate [...] By: #### 2 4321-2, , 2776-08 #### [facility] CLIA [id number] [address] [address] [place] Glucose [Mass/Vol] 83 mg/dL Normal 74-99 [facility] Comment on above: Order Comment: Sana zuñiga Type: BLOOD SPECIMEN Ordering Facility: [facility] Address: [address] [place] [address] Result Comment: The [place] [employer] (ADA) provides guidance for cutoff [...] Standards of Medical Care in Diabetes 2016, [place] [employer]. Diabetes Care. 2016.39(Suppl 1). Performed By: #### 2 4321-2, , 2776-08 #### [facility] CLIA [id number] [facility] [place] [address] [place] Potassium [Moles/Vol] 4.9 mmol/L Normal 3.7-5.1 [facility] Comment on above: Order Comment: Sana zuñiga Type: BLOOD SPECIMEN Ordering Facility: [facility] Address: [address] [place] [address] Performed By: #### 2 4321-2, , 2776-08 #### [facility] CLIA [id number] [address] [address] [place] Sodium [Moles/Vol] 146 mmol/L High 136-144 [facility] Comment on above: Order Comment: Speci men Type: BLOOD SPECIMEN Ordering Facility: [facility] Address: [address] [place] [address] Performed By: #### 2 4321-2, , 2776-08 #### [facility] CLIA [id number] [address] [place] [address] [place] Urea nitrogen [Mass/Vol] 6 mg/dL Low 9-24 [facility] Comment on above: Order Comment: Speci men Type: BLOOD SPECIMEN Ordering Facility: [facility] Address: [address] [place] [address] Performed By: #### 2 4321-2, , 2776-08 #### [facility] CLIA [id number] [address] [place] [address] [place] CBC panel Auto (Bld)on 11-05 Erythrocyte distribution width (RBC) [Ratio] 14.8 % Normal 11.5-15.0 [facility] Comment on above: Order Comment: Speci men Type: BLOOD SPECIMEN Ordering Facility: [facility] Address: [address] [place] [address] Performed By: #### 2 777-1, , #### [facility] CLIA [id number] [address] [place] [address] [place] Hematocrit (Bld) [Volume fraction] 31.3 % Low 39.0-51.0 [facility] Comment on above: Order Comment: Speci men Type: BLOOD SPECIMEN Ordering Facility: [facility] Address: [address] [place] [address] Performed By: #### 2 777-1, , #### [facility] CLIA [id number] [address] [place] [address] [place] Hemoglobin (Bld) [Mass/Vol] 9.8 g/dL Low 13.0-17.0 [facility] Comment on above: Order Comment: Speci men Type: BLOOD SPECIMEN Ordering Facility: [facility] Address: [address] [place] [address] Performed By: #### 2 777-1, 88395-7, #### [facility] CLIA [id number] [address] [place] [address] [place] MCH (RBC) [Entitic mass] 26.4 pg Normal 26.0-34.0 [facility] Comment on above: Order Comment: Speci men Type: BLOOD SPECIMEN Ordering Facility: [facility] Address: [address] [place] [address] Performed By: #### 2 777-1, 67764-2, #### [facility] CLIA [id number] [address] [place] [address] [place] MCHC (RBC) [Mass/Vol] 31.3 g/dL Normal 30.5-36.0 [facility] Comment on above: Order Comment: Speci men Type: BLOOD SPECIMEN Ordering Facility: [facility] Address: [address] [place] [address] Performed By: #### 2 777-1, , #### [facility] CLIA [id number] [address] [place] [address] [place] MCV (RBC) [Entitic vol] 84.4 fL Normal 80.0-100.0 [facility] Comment on above: Order Comment: Speci men Type: BLOOD SPECIMEN Ordering Facility: [facility] Address: [address] [place] [address] Performed By: #### 2 777-1, 41937-6, #### [facility] CLIA [id number] [address] [place] [address] [place] Nucleated RBC (Bld) [#/Vol] 10*3/uL Normal <0.01 [facility] Comment on above: Order Comment: Speci men Type: BLOOD SPECIMEN Ordering Facility: [facility] Address: [address] [place] [address] Performed By: #### 2 777-1, 94704-3, #### [facility] CLIA [id number] [address] [place] [address] [place] Platelet mean volume (Bld) [Entitic vol] 8.9 fL Low 9.0-12.7 [facility] Comment on above: Order Comment: Speci men Type: BLOOD SPECIMEN Ordering Facility: [facility] Address: [address] [place] [address] Performed By: #### 2 777-1, 36374-9, #### [facility] CLIA [id number] [address] [place] [address] [place] Platelets (Bld) [#/Vol] 244 10*3/uL Normal 150-400 [facility] Comment on above: Order Comment: Speci men Type: BLOOD SPECIMEN Ordering Facility: [facility] Address: [address] [place] [address] Performed By: #### 2 777-1, 75261-7, #### [facility] CLIA [id number] [address] [place] [address] [place] RBC (Bld) [#/Vol] 3.71 10*6/uL Low 4.20-6.00 [facility] Comment on above: Order Comment: Speci men Type: BLOOD SPECIMEN Ordering Facility: [facility] Address: [address] [place] [address] Performed By: #### 2 777-1, 02188-6, #### [facility] CLIA [id number] [address] [place] [address] [place] WBC (Bld) [#/Vol] 7.59 10*3/uL Normal 3.70-11.00 [facility] Comment on above: Order Comment: Speci men Type: BLOOD SPECIMEN Ordering Facility: [facility] Address: [address] [place] [address] Performed By: #### 2 777-1, 33410-3, 31062-0 #### [facility] CLIA [id number] [address] [place] [address] [id number] [place] [address] [place] CONSULT PROGon 11-06-2023 CONSULT PROG HNO ID: [id number] Author: KIM BHAKTA MD Service: Neurology General Author Type: Physician Type: Consult Progress Note Filed: 11/06/2023 17:31 Note Text: NEUROLOGY CONSULT PROGRESS NOTE SERVICE DATE: 11/06/2023 SERVICE TIME: 8:40 am Current Attending Provider: Saumel Robin* Subjective Interval History: Today, Johnny is [...] for now. Kim Bhakta MD Staff Neurologist [facility] Multiple Sclerosis Normal [facility] Magn[facility] Magnesium [Mass/Vol] 2.3 mg/dL Normal 1.7-2.3 [facility] Comment on above: Order Comment: Speci men Type: BLOOD SPECIMEN Ordering Facility: [facility] Address: [address] [place] [address] Performed By: #### 2 4321-2, 51899-4, 7- #### [facility] CLIA [id number] [address] [place] [address] [place] Phosphate [facility] 11-05 Phosphate [Mass/Vol] 4.1 mg/dL Normal 2.7-4.8 [facility] Comment on above: Order Comment: Speci men Type: BLOOD SPECIMEN Ordering Facility: [facility] Address: [address] [place] [address] Performed By: #### 2 4321-2, 78858-8, 2777 #### [facility] CLIA [id number] [address] [place] [address] [place] THERAPY NTon 11-06-2023 THERAPY NT HNO ID: [id number] Author: CHANTELL BELLA [facility]-OBSTETRICS GYNECOLOGY MD Service: Speech/Swallow Author Type: Speech Language Pathologist Type: Therapy (PT/OT/Speech/Resp) Filed: 11/06/2023 10:28 Note Text: [facility] Speech Pathology - [facility] Bedside Swallow Evaluation SERVICE DATE: 11/06/2023 ROOM: [place] [address] IMPRESSIONS: Limited bedside swallowing evaluation as patient [...] assessment. PLAN: Page with concerns/questions. Chantell Bella [facility]-OBSTETRICS GYNECOLOGY MD Pager # [phone] BRIEF DIAGNOSIS AND HISTORY per General Surgery [...] discussed with: MIRIAM adkins SIGNATURE: Chantell Bella [facility]-OBSTETR[facility] GYNECOLOGY MD PATIENT NAME: Johnny Devine DATE: November 06, 2023 TIME: 10:12 AM PAGER: [phone] Normal [facility] Basic metabolic 2000 panelon 11-05-2023 Anion gap [Moles/Vol] 7 mmol/L Low -18 [facility] Comment on above: Order Comment: Speci men Type: BLOOD SPECIMEN Ordering Facility: [facility] Address: [address] [place] [address] Performed By: #### 5 7021-8 #### [facility] CLIA [id number] [address] [place] [address] [place] Calcium [Mass/Vol] 7.6 mg/dL Low 8.5-10.2 [facility] Comment on above: Order Comment: Speci men Type: BLOOD SPECIMEN Ordering Facility: [facility] Address: [address] [place] [address] Performed By: #### 5 7021-8 #### [facility] CLIA [id number] [address] [place] [address] [place] Chloride [Moles/Vol] 112 mmol/L High 97-105 [facility] Comment on above: Order Comment: Speci men Type: BLOOD SPECIMEN Ordering Facility: [facility] Address: [address] [place] [address] Performed By: #### 5 7021-8 #### [facility] CLIA [id number] [address] [place] [address] [place] CO2 [Moles/Vol] 23 mmol/L Normal 22-30 [facility] Comment on above: Order Comment: Speci men Type: BLOOD SPECIMEN Ordering Facility: [facility] Address: [address] [place] [address] Performed By: #### 5 7021-8 #### [facility] CLIA [id number] [address] [place] [address] [place] Creatinine [Mass/Vol] 0.64 mg/dL Low 0.73-1.22 [facility] Comment on above: Order Comment: Speci men Type: BLOOD SPECIMEN Ordering Facility: [facility] Address: [address] [place] [address] Performed By: #### 5 7021-8 #### [facility] CLIA [id number] [address] [place] [address] [place] Creatinine and Glomerular filtration rate.predicted panel (S/P/Bld) 130 mL/min/1.73m??? Normal >=60 [facility] Comment on above: Order Comment: Speci men Type: BLOOD SPECIMEN Ordering Facility: [facility] Address: [address] [place] [address] Result Comment: Lor mated Glomerular Filtration Rate [...] GFR. Performed By: #### 5 7021-8 #### [facility] CLIA [id number] [address] [place] [address] [place] Glucose [Mass/Vol] 96 mg/dL Normal 74-99 [facility] Comment on above: Order Comment: Speci men Type: BLOOD SPECIMEN Ordering Facility: [facility] Address: [address] [place] [address] Result Comment: The [place] [employer] (ADA) provides guidance for cutoff [...] Standards of Medical Care in Diabetes 2016, [place] [employer]. Diabetes Care. 2016.39(Suppl 1). Performed By: #### 5 7021-8 #### [facility] CLIA [id number] [address] [place] [address] [place] Potassium [Moles/Vol] 4.2 mmol/L Normal 3.7-5.1 [facility] Comment on above: Order Comment: Akbari men Type: BLOOD SPECIMEN Ordering Facility: [facility] Address: [address] [place] [address] Performed By: #### 5 7021-8 #### [facility] CLIA [id number] [address] [place] [address] [place] Sodium [Moles/Vol] 142 mmol/L Normal 136-144 [facility] Comment on above: Order Comment: Speci men Type: BLOOD SPECIMEN Ordering Facility: [facility] Address: [address] [place] [address] Performed By: #### 5 7021-8 #### [facility] CLIA [id number] [address] [place] [address] [place] Urea nitrogen [Mass/Vol] 5 mg/dL Low 9-24 [facility] Comment on above: Order Comment: Speci men Type: BLOOD SPECIMEN Ordering Facility: [facility] Address: [address] [place] [address] Performed By: #### 5 7021-8 #### [facility] CLIA [id number] [address] [place] [address] [place] CBC panel Auto (Bld)on 11-04 Erythrocyte distribution width (RBC) [Ratio] 14.6 % Normal 11.5-15.0 [facility] Comment on above: Order Comment: Speci men Type: BLOOD SPECIMENOrdering Facility: [facility] Address: [address] [place] [address] Performed By: #### 5 8410-2 ####[facility] [id number] [place] [address] [place] Hematocrit (Bld) [Volume fraction] 30.8 % Low 39.0-51.0 [facility] Comment on above: Order Comment: Speci men Type: BLOOD SPECIMENOrdering Facility: [facility] Address: [address] [place] [address] Performed By: #### 5 8410-2 ####[facility] [id number] [place] [address] [place] Hemoglobin (Bld) [Mass/Vol] 9.7 g/dL Low 13.0-17.0 [facility] Comment on above: Order Comment: Speci men Type: BLOOD SPECIMENOrdering Facility: [facility] Address: [address] [place] [address] Performed By: #### 5 8410-2 ####[facility] [id number] [place] [address] [place] MCH (RBC) [Entitic mass] 26.5 pg Normal 26.0-34.0 [facility] Comment on above: Order Comment: Speci men Type: BLOOD SPECIMENOrdering Facility: [facility] Address: [address] [place], [place] [address] Performed By: #### 5 8410-2 ####[facility] [id number] [place] [address] [place] MCHC (RBC) [Mass/Vol] 31.5 g/dL Normal 30.5-36.0 [facility] Comment on above: Order Comment: Speci men Type: BLOOD SPECIMENOrdering Facility: [facility] Address: [address] [place] [address] Performed By: #### 5 8410-2 ####[facility] [id number] [place] [address] [place] MCV (RBC) [Entitic vol] 84.2 fL Normal 80.0-100.0 [facility] Comment on above: Order Comment: Speci men Type: BLOOD SPECIMENOrdering Facility: [facility] Address: [address] [place] [address] Performed By: #### 5 8410-2 ####[facility] [id number] [place] [address] [place] Nucleated RBC (Bld) [#/Vol] 10*3/uL Normal <0.01 [facility] Comment on above: Order Comment: Speci men Type: BLOOD SPECIMENOrdering Facility: [facility] Address: [address] [place] [address] Performed By: #### 5 8410-2 ####[facility] [id number] [place] [address] [place] Platelet mean volume (Bld) [Entitic vol] 9.1 fL Normal 9.0-12.7 [facility] Comment on above: Order Comment: Speci men Type: BLOOD SPECIMENOrdering Facility: [facility] Address: [address] [place] [address] Performed By: #### 5 8410-2 ####[facility] [id number] [place] [address] [place] Platelets (Bld) [#/Vol] 205 10*3/uL Normal 150-400 [facility] Comment on above: Order Comment: Speci men Type: BLOOD SPECIMENOrdering Facility: [facility] Address: [address] [place] [address] Performed By: #### 5 8410-2 ####[facility] [id number] [place] [address] [place] RBC (Bld) [#/Vol] 3.66 10*6/uL Low 4.20-6.00 [facility] Comment on above: Order Comment: Speci men Type: BLOOD SPECIMENOrdering Facility: [facility] Address: [address] [place] [address] Performed By: #### 5 8410-2 ####[facility] [id number] [place] [address] [place] WBC (Bld) [#/Vol] 7.54 10*3/uL Normal 3.70-11.00 [facility] Comment on above: Order Comment: Speci men Type: BLOOD SPECIMENOrdering Facility: [facility] Address: [address] [place] [address] Performed By: #### 5 8410-2 ####[facility] [id number] [place] [address] [place] Magnesium SerPl-mCncon 11-04 Magnesium [Mass/Vol] 2.0 mg/dL Normal 1.7-2.3 [facility] Comment on above: Order Comment: Speci men Type: BLOOD SPECIMEN Ordering Facility: [facility] Address: [address] [place] [address] Performed By: #### 5 7021-8 #### [facility] CLIA [id number] [address] [place] [address] [place] Phosphate SerPl-mCncon 11-04 Phosphate [Mass/Vol] 3.1 mg/dL Normal 2.7-4.8 [facility] Comment on above: Order Comment: Speci men Type: BLOOD SPECIMEN Ordering Facility: [facility] Address: [address] [place] [address] Performed By: #### 5 7021-8 #### [facility] CLIA [id number] [address] [place] [address] THERAPY NTon 11-05-2023 THERAPY NT HNO ID: [id number] Author: ANA LUISA MORALES, PT Service: ? Author Type: Physical Therapist Type: Therapy (PT/OT/Speech/Resp) Filed: 11/05/2023 15:46 Note Text: Physical Therapy Evaluation Summary SERVICE DATE: 11/05/2023 SERVICE TIME: 1459 to 1532 ROOM: [place] [address] PT 6 Clicks Score: 18 DISCHARGE RECOMMENDATIONS Home Recommended Discharge Disposition Comments: Anticipate patient will continue to progress in mobility. [facility]ticipate [facility] to [facility] as long as able to provide current [...] session to obtain PLOF. Patient lives at [facility]. I with mobility. Can feed himself and [...] and mobility-other TREATMENT INTERVENTIONS Evaluation, Therapeutic Activity (58569) Timed Code Treatment (minutes): 18 Skilled Treatment [...] Type: Stepping Bed To Chair Transfer Equipment: ([employer]) frequent verbal cues Gait Contact Guard Assistance [...] November 05, 2023 TIME: 3:46 PM Normal [facility] Basic metabolic 2000 panelon 11-04-2023 Anion gap [Moles/Vol] 9 mmol/L Normal 9-18 [facility] Comment on above: Order Comment: Speci men Type: BLOOD SPECIMEN Ordering Facility: [facility] Address: [address] [place] [address] Performed By: #### 2 777-1, 70570-9, #### [facility] CLIA [id number] [address] [place] [address] [place] Calcium [Mass/Vol] 7.7 mg/dL Low 8.5-10.2 [facility] Comment on above: Order Comment: Speci men Type: BLOOD SPECIMEN Ordering Facility: [facility] Address: [address] [place] [address] Performed By: #### 2 777-1, 18913-2, #### [facility] CLIA [id number] [address] [place] [address] [place] Chloride [Moles/Vol] 112 mmol/L High 97-105 [facility] Comment on above: Order Comment: Speci men Type: BLOOD SPECIMEN Ordering Facility: [facility] Address: [address] [place] [address] Performed By: #### 2 777-1, 14407-8, #### [facility] CLIA [id number] [address] [place] [address] [place] CO2 [Moles/Vol] 24 mmol/L Normal 22-30 [facility] Comment on above: Order Comment: Speci men Type: BLOOD SPECIMEN Ordering Facility: [facility] Address: [address] [place] [address] Performed By: #### 2 777-1, 38681-5, #### [facility] CLIA [id number] [address] [place] [address] [place] Creatinine [Mass/Vol] 0.70 mg/dL Low 0.73-1.22 [facility] Comment on above: Order Comment: Sana zuñiga Type: BLOOD SPECIMEN Ordering Facility: [facility] Address: [address] [place] [address] Performed By: #### 2 777-1, 91935-2, #### [facility] CLIA [id number] [address] [place] [address] [place] Creatinine and Glomerular filtration rate.predicted panel (S/P/Bld) 126 mL/min/1.73m??? Normal >=60 [facility] Comment on above: Order Comment: Sana zuñiga Type: BLOOD SPECIMEN Ordering Facility: [facility] Address: [address] [place] [address] Result Comment: Lor mated Glomerular Filtration Rate [...] actual GFR. Performed By: #### 2 777-1, 07288-5, #### [facility] CLIA [id number] [address] [place] [address] [place] Glucose [Mass/Vol] 79 mg/dL Normal 74-99 [facility] Comment on above: Order Comment: Sana zuñiga Type: BLOOD SPECIMEN Ordering Facility: [facility] Address: [address] [place] [address] Result Comment: The [place] [employer] (ADA) provides guidance for cutoff [...] Standards of Medical Care in Diabetes 2016, [place] [employer]. Diabetes Care. 2016.39(Suppl 1). Performed By: #### 2 777-1, 12999-4, #### [facility] CLIA [id number] [address] [place] [address] [place] Potassium [Moles/Vol] 3.6 mmol/L Low 3.7-5.1 [facility] Comment on above: Order Comment: Sana zuñiga Type: BLOOD SPECIMEN Ordering Facility: [facility] Address: [address] [place] [address] Performed By: #### 2 777-1, 79836-9, #### [facility] CLIA [id number] [address] [place] [address] [place] Sodium [Moles/Vol] 145 mmol/L High 136-144 [facility] Comment on above: Order Comment: Sana zuñiga Type: BLOOD SPECIMEN Ordering Facility: [facility] Address: [address] [place] [address] Performed By: #### 2 777-1, 61957-6, #### [facility] CLIA [id number] [address] [place] [address] [place] Urea nitrogen [Mass/Vol] 4 mg/dL Low 9-24 [facility] Comment on above: Order Comment: Speci men Type: BLOOD SPECIMEN Ordering Facility: [facility] Address: [address] [place] [address] Performed By: #### 2 777-1, 33969-9, #### [facility] CLIA [id number] [address] [place] [address] [place] CBC panel Auto (Bld)on 11-03 Erythrocyte distribution width (RBC) [Ratio] 14.3 % Normal 11.5-15.0 [facility] Comment on above: Order Comment: Speci men Type: BLOOD SPECIMEN Ordering Facility: [facility] Address: [address] [place] [address] Performed By: #### 2 777-1, 12898-3, #### [facility] CLIA [id number] [address] [place] [address] [place] Hematocrit (Bld) [Volume fraction] 33.4 % Low 39.0-51.0 [facility] Comment on above: Order Comment: Speci men Type: BLOOD SPECIMEN Ordering Facility: [facility] Address: [address] [place] [address] Performed By: #### 2 777-1, 28857-6, #### [facility] CLIA [id number] [address] [place] [address] [place] Hemoglobin (Bld) [Mass/Vol] 10.5 g/dL Low 13.0-17.0 [facility] Comment on above: Order Comment: Speci men Type: BLOOD SPECIMEN Ordering Facility: [facility] Address: [address] [place] [address] Performed By: #### 2 777-1, 82846-5, #### [facility] CLIA [id number] [address] [place] [address] [place] MCH (RBC) [Entitic mass] 26.4 pg Normal 26.0-34.0 [facility] Comment on above: Order Comment: Speci men Type: BLOOD SPECIMEN Ordering Facility: [facility] Address: [address] [place] [address] Performed By: #### 2 777-1, 18557-3, #### [facility] CLIA [id number] [address] [place] [address] [place] MCHC (RBC) [Mass/Vol] 31.4 g/dL Normal 30.5-36.0 [facility] Comment on above: Order Comment: Speci men Type: BLOOD SPECIMEN Ordering Facility: [facility] Address: [address] [place] [address] Performed By: #### 2 777-1, 11609-3, #### [facility] CLIA [id number] [address] [place] [address] [place] MCV (RBC) [Entitic vol] 84.1 fL Normal 80.0-100.0 [facility] Comment on above: Order Comment: Speci men Type: BLOOD SPECIMEN Ordering Facility: [facility] Address: [address] [place] [address] Performed By: #### 2 777-1, 00359-9, #### [facility] CLIA [id number] [address] [place] [address] [place] Nucleated RBC (Bld) [#/Vol] 10*3/uL Normal <0.01 [facility] Comment on above: Order Comment: Speci men Type: BLOOD SPECIMEN Ordering Facility: [facility] Address: [address] [place] [address] Performed By: #### 2 777-1, 46846-0, #### [facility] CLIA [id number] [address] [place] [address] [place] Platelet mean volume (Bld) [Entitic vol] 8.9 fL Low 9.0-12.7 [facility] Comment on above: Order Comment: Speci men Type: BLOOD SPECIMEN Ordering Facility: [facility] Address: [address] [place] [address] Performed By: #### 2 777-1, 29562-1, #### [facility] CLIA [id number] [address] [place] [address] [place] Platelets (Bld) [#/Vol] 242 10*3/uL Normal 150-400 [facility] Comment on above: Order Comment: Speci men Type: BLOOD SPECIMEN Ordering Facility: [facility] Address: [address] [place] [address] Performed By: #### 2 777-1, 08148-4, #### [facility] CLIA [id number] [address] [place] [address] [place] RBC (Bld) [#/Vol] 3.97 10*6/uL Low 4.20-6.00 [facility] Comment on above: Order Comment: Speci men Type: BLOOD SPECIMEN Ordering Facility: [facility] Address: [address] [place] [address] Performed By: #### 2 777-1, 97890-0, #### [facility] CLIA [id number] [address] [place] [address] [place] WBC (Bld) [#/Vol] 9.36 10*3/uL Normal 3.70-11.00 [facility] Comment on above: Order Comment: Speci men Type: BLOOD SPECIMEN Ordering Facility: [facility] Address: [address] [place] [address] Performed By: #### 2 777-1, 67025-7, #### [facility] CLIA [id number] [address] [place] [address] [place] Magnesium SerPl-mCncon 11-03 Magnesium [Mass/Vol] 2.0 mg/dL Normal 1.7-2.3 [facility] Comment on above: Order Comment: Speci men Type: BLOOD SPECIMEN Ordering Facility: [facility] Address: [address] [place] [address] Performed By: #### 2 777-1, 19103-0, #### [facility] CLIA [id number] [address] [place] [address] [place] NUTRITIONon 11-04-2023 NUTRITION HNO ID: [id number] Author: SAURABH VAZQUEZ DTR Service: Nutrition Therapy Author Type: Study Abroad Advisor Type: Nutrition Filed: 11/04/2023 14:35 Note Text: NUTRITION THERAPY PROFILER NOTE SERVICE DATE: 11/04/2023 SERVICE TIME: 1030 Visit Type: Length of Stay Evaluation Goals Met: Not Met Will monitor for diet advancement and nutritional needs as able. Plan of [facility] Malnutrition Score: 0 Nutrition [...] November 04, 2023 TIME: 2:25 PM Normal [facility] Phosphate SerPl-mCncon 11-03 Phosphate [Mass/Vol] 2.6 mg/dL Low 2.7-4.8 [facility] Comment on above: Order Comment: Speci men Type: BLOOD SPECIMEN Ordering Facility: [facility] Address: [address] [place] [address] Performed By: #### 2 777-1, 36894-1, 99188-6 #### [facility] CLIA [id number] [address] [place] [address] [place] Valproate Free SerPl-mCncon 11-04-2023 Valproate Free [Mass/Vol] 11.3 ug/mL Normal 4.0-30.0 [facility] Comment on above: Order Comment: Speci yogesh Type: BLOOD SPECIMENOrdering Facility: [facility] Address: [address] [place] [address] Result Comment: Refe rence ranges and high/low indicator flags are provided as general guidelines only. The treating physician must determine appropriate target levels/dosing based on the specific clinical situation. This test was developed and its performance characteristics determined by [facility] [place] ([facility] It has not been cleared or approved by the FDA. -[facility] is regulated under CLIA as qualified to perform high-complexity testing. This test is used for clinical purposes. It should not be regarded as investigational or for research. Performed By: #### 4 087-3 ####[facility] [id number] [place] [address] [place] Valproate SerPl-ncon 11-03 Valproate [Mass/Vol] 49.2 ug/mL Low 50.0-100.0 [facility] Comment on above: Order Comment: Speci yogesh Type: BLOOD SPECIMEN Ordering Facility: [facility] Address: [address] [place] [address] Result Comment: Refe rence ranges and high/low indicator flags are provided as general guidelines only. The treating physician must determine appropriate target levels/dosing based on the specific clinical situation. Performed By: #### 2 4321-2, 41224-1, 2777-1 #### [facility] CLIA [id number] [address] [place] [address] [place] Basic metabolic 2000 panelon 11-03-2023 Anion gap [Moles/Vol] 11 mmol/L Normal 9-18 [facility] Comment on above: Order Comment: Speci men Type: BLOOD SPECIMEN Ordering Facility: [facility] Address: [address] [place] [address] Performed By: #### 2 777-1, 72222-5, 36852-4 #### [facility] CLIA [id number] [address] [place] [address] [place] Calcium [Mass/Vol] 7.7 mg/dL Low 8.5-10.2 [facility] Comment on above: Order Comment: Speci men Type: BLOOD SPECIMEN Ordering Facility: [facility] Address: [address] [place] [address] Performed By: #### 2 777-1, 09268-0, #### [facility] CLIA [id number] [address] [place] [address] [place] Chloride [Moles/Vol] 112 mmol/L High 97-105 [facility] Comment on above: Order Comment: Speci men Type: BLOOD SPECIMEN Ordering Facility: [facility] Address: [address] [place] [address] Performed By: #### 2 777-1, 81446-4, #### [facility] CLIA [id number] [address] [place] [address] [place] CO2 [Moles/Vol] 22 mmol/L Normal 22-30 [facility] Comment on above: Order Comment: Speci men Type: BLOOD SPECIMEN Ordering Facility: [facility] Address: [address] [place] [address] Performed By: #### 2 777-1, 86410-3, #### [facility] CLIA [id number] [address] [place] [address] [place] Creatinine [Mass/Vol] 0.68 mg/dL Low 0.73-1.22 [facility] Comment on above: Order Comment: Speci men Type: BLOOD SPECIMEN Ordering Facility: [facility] Address: [address] [place] [address] Performed By: #### 2 777-1, 86240-0, #### [facility] CLIA [id number] [address] [place] [address] [place] Creatinine and Glomerular filtration rate.predicted panel (S/P/Bld) 127 mL/min/1.73m??? Normal >=60 [facility] Comment on above: Order Comment: Sana zuñiga Type: BLOOD SPECIMEN Ordering Facility: [facility] Address: [address] [place] [address] Result Comment: Lor mated Glomerular Filtration Rate [...] actual GFR. Performed By: #### 2 777-1, 55587-9, #### [facility] CLIA [id number] [address] [place] [address] [place] Glucose [Mass/Vol] 85 mg/dL Normal 74-99 [facility] Comment on above: Order Comment: Sana zuñiga Type: BLOOD SPECIMEN Ordering Facility: [facility] Address: [address] [place] [address] Result Comment: The [place] [employer] (ADA) provides guidance for cutoff [...] Standards of Medical Care in Diabetes 2016, [place] [employer]. Diabetes Care. 2016.39(Suppl 1). Performed By: #### 2 777-1, 65524-5, #### [facility] CLIA [id number] [address] [place] [address] [place] Potassium [Moles/Vol] 3.4 mmol/L Low 3.7-5.1 [facility] Comment on above: Order Comment: Speci men Type: BLOOD SPECIMEN Ordering Facility: [facility] Address: [address] [place] [address] Performed By: #### 2 777-1, 09984-4, #### [facility] CLIA [id number] [address] [place] [address] [place] Sodium [Moles/Vol] 145 mmol/L High 136-144 [facility] Comment on above: Order Comment: Speci men Type: BLOOD SPECIMEN Ordering Facility: [facility] Address: [address] [place] [address] Performed By: #### 2 777-1, 93411-2, #### [facility] CLIA [id number] [address] [place] [address] [place] Urea nitrogen [Mass/Vol] 5 mg/dL Low 9-24 [facility] Comment on above: Order Comment: Speci men Type: BLOOD SPECIMEN Ordering Facility: [facility] Address: [address] [place] [address] Performed By: #### 2 777-1, 41459-0, #### [facility] CLIA [id number] [address] [place] [address] [place] CBC W Auto Differential pane l (Bld)on 11-03-2023 Basophils (Bld) [#/Vol] 10*3/uL Normal <0.11 [facility] Comment on above: Order Comment: Speci men Type: BLOOD SPECIMEN Ordering Facility: [facility] Address: [address] [place] [address] Performed By: #### 5 7021-8 #### [facility] CLIA [id number] [address] [place] [address] [place] Basophils/100 WBC (Bld) 0.3 % Normal [facility] Comment on above: Order Comment: Speci men Type: BLOOD SPECIMEN Ordering Facility: [facility] Address: [address] [place] [address] Performed By: #### 5 7021-8 #### [facility] CLIA [id number] [address] [place] [address] [place] Differential cell count method Nom (Bld) Auto Normal [facility] Comment on above: Order Comment: Speci men Type: BLOOD SPECIMEN Ordering Facility: [facility] Address: [address] [place] [address] Performed By: #### 5 7021-8 #### [facility] CLIA [id number] [address] [place] [address] [place] Eosinophils (Bld) [#/Vol] 0.25 10*3/uL Normal <0.46 [facility] Comment on above: Order Comment: Speci men Type: BLOOD SPECIMEN Ordering Facility: [facility] Address: [address] [place] [address] Performed By: #### 5 7021-8 #### [facility] CLIA [id number] [address] [place] [address] [place] Eosinophils/100 WBC (Bld) 3.1 % Normal [facility] Comment on above: Order Comment: Speci men Type: BLOOD SPECIMEN Ordering Facility: [facility] Address: [address] [place] [address] Performed By: #### 5 7021-8 #### [facility] CLIA [id number] [address] [place] [address] [place] Erythrocyte distribution width (RBC) [Ratio] 13.7 % Normal 11.5-15.0 [facility] Comment on above: Order Comment: Speci men Type: BLOOD SPECIMEN Ordering Facility: [facility] Address: [address] [place] [address] Performed By: #### 5 7021-8 #### [facility] CLIA [id number] [address] [place] [address] [place] Hematocrit (Bld) [Volume fraction] 29.9 % Low 39.0-51.0 [facility] Comment on above: Order Comment: Speci men Type: BLOOD SPECIMEN Ordering Facility: [facility] Address: [address] [place] [address] Performed By: #### 5 7021-8 #### [facility] CLIA [id number] [address] [place] [address] [place] Hemoglobin (Bld) [Mass/Vol] 9.4 g/dL Low 13.0-17.0 [facility] Comment on above: Order Comment: Speci men Type: BLOOD SPECIMEN Ordering Facility: [facility] Address: [address] [place] [address] Performed By: #### 5 7021-8 #### [facility] CLIA [id number] [address] [place] [address] [place] Immature granulocytes (Bld) [#/Vol] 0.11 10*3/uL High <0.10 [facility] Comment on above: Order Comment: Speci men Type: BLOOD SPECIMEN Ordering Facility: [facility] Address: [address] [place] [address] Performed By: #### 5 7021-8 #### [facility] CLIA [id number] [address] [place] [address] [place] Immature granulocytes/100 WBC (Bld) 1.4 % Normal [facility] Comment on above: Order Comment: Speci men Type: BLOOD SPECIMEN Ordering Facility: [facility] Address: [address] [place] [address] Performed By: #### 5 7021-8 #### [facility] CLIA [id number] [address] [place] [address] [place] Lymphocytes (Bld) [#/Vol] 2.03 10*3/uL Normal 1.00-4.00 [facility] Comment on above: Order Comment: Speci men Type: BLOOD SPECIMEN Ordering Facility: [facility] Address: [address] [place] [address] Performed By: #### 5 7021-8 #### [facility] CLIA [id number] [address] [place] [address] [place] Lymphocytes/100 WBC (Bld) 25.4 % Normal [facility] Comment on above: Order Comment: Speci men Type: BLOOD SPECIMEN Ordering Facility: [facility] Address: [address] [place] [address] Performed By: #### 5 7021-8 #### [facility] CLIA [id number] [address] [place] [address] [place] MCH (RBC) [Entitic mass] 26.5 pg Normal 26.0-34.0 [facility] Comment on above: Order Comment: Speci men Type: BLOOD SPECIMEN Ordering Facility: [facility] Address: [address] [place] [address] Performed By: #### 5 7021-8 #### [facility] CLIA [id number] [address] [place] [address] [place] MCHC (RBC) [Mass/Vol] 31.4 g/dL Normal 30.5-36.0 [facility] Comment on above: Order Comment: Speci men Type: BLOOD SPECIMEN Ordering Facility: [facility] Address: [address] [place] [address] Performed By: #### 5 7021-8 #### [facility] CLIA [id number] [address] [place] [address] [place] MCV (RBC) [Entitic vol] 84.2 fL Normal 80.0-100.0 [facility] Comment on above: Order Comment: Speci men Type: BLOOD SPECIMEN Ordering Facility: [facility] Address: [address] [place] [address] Performed By: #### 5 7021-8 #### [facility] CLIA [id number] [address] [place] [address] [place] Monocytes (Bld) [#/Vol] 0.62 10*3/uL Normal <0.87 [facility] Comment on above: Order Comment: Speci men Type: BLOOD SPECIMEN Ordering Facility: [facility] Address: [address] [place] [address] Performed By: #### 5 7021-8 #### [facility] CLIA [id number] [address] [place] [address] [place] Monocytes/100 WBC (Bld) 7.8 % Normal [facility] Comment on above: Order Comment: Speci men Type: BLOOD SPECIMEN Ordering Facility: [facility] Address: [address] [place] [address] Performed By: #### 5 7021-8 #### [facility] CLIA [id number] [address] [place] [address] [place] Neutrophils (Bld) [#/Vol] 4.96 10*3/uL Normal 1.45-7.50 [facility] Comment on above: Order Comment: Speci men Type: BLOOD SPECIMEN Ordering Facility: [facility] Address: [address] [place] [address] Performed By: #### 5 7021-8 #### [facility] CLIA [id number] [address] [place] [address] [place] Neutrophils/100 WBC (Bld) 62.0 % Normal [facility] Comment on above: Order Comment: Speci men Type: BLOOD SPECIMEN Ordering Facility: [facility] Address: [address] [place] [address] Performed By: #### 5 7021-8 #### [facility] CLIA [id number] [address] [place] [address] [place] Nucleated RBC (Bld) [#/Vol] 10*3/uL Normal <0.01 [facility] Comment on above: Order Comment: Speci men Type: BLOOD SPECIMEN Ordering Facility: [facility] Address: [address] [place] [address] Performed By: #### 5 7021-8 #### [facility] CLIA [id number] [address] [place] [address] [place] Nucleated RBC/100 WBC (Bld) [Ratio] 0.0 /100 WBC Normal [facility] Comment on above: Order Comment: Speci men Type: BLOOD SPECIMEN Ordering Facility: [facility] Address: [address] [place] [address] Performed By: #### 5 7021-8 #### [facility] CLIA [id number] [address] [place] [address] [place] Platelet mean volume (Bld) [Entitic vol] 9.3 fL Normal 9.0-12.7 [facility] Comment on above: Order Comment: Speci men Type: BLOOD SPECIMEN Ordering Facility: [facility] Address: [address] [place] [address] Performed By: #### 5 7021-8 #### [facility] CLIA [id number] [address] [place] [address] [place] Platelets (Bld) [#/Vol] 208 10*3/uL Normal 150-400 [facility] Comment on above: Order Comment: Speci men Type: BLOOD SPECIMEN Ordering Facility: [facility] Address: [address] [place] [address] Performed By: #### 5 7021-8 #### [facility] CLIA [id number] [address] [place] [address] [place] RBC (Bld) [#/Vol] 3.55 10*6/uL Low 4.20-6.00 [facility] Comment on above: Order Comment: Speci men Type: BLOOD SPECIMEN Ordering Facility: [facility] Address: [address] [place] [address] Performed By: #### 5 7021-8 #### [facility] CLIA [id number] [address] [place] [address] [place] WBC (Bld) [#/Vol] 7.99 10*3/uL Normal 3.70-11.00 [facility] Comment on above: Order Comment: Speci men Type: BLOOD SPECIMEN Ordering Facility: [facility] Address: [address] [place] [address] Performed By: #### 5 7021-8 #### [facility] CLIA [id number] [address] [place] [address] [place] CONSULTon 11-03-2023 CONSULT HNO ID: [id number] Author: CK HU MD Service: Neurology General [...] is brother, Delbert. Patient lives in a fdc at [place]. Per information written on board [...] (DULCOLAX) 10 mg RECTAL DAILY phenol 1 Wink (CHLORASEPTIC) 1 Wink MUCOUS MEMBRANE (TOPICAL MOUTH AND THROAT) q 2 H PRN Or benzocaine-menthol 1 Lozenge (CHLORASEPTIC) 1 Lozenge MUCOUS MEMBRANE (TOPICAL MOUTH AND THROAT) q 2 H PRN clomiPRAMINE 75 mg cap(s) (ANAFRANIL) 75 mg ORAL AT BEDTIME lithium carbonate 300 mg cap(s) (ESKALITH) 300 mg ORAL BID sertraline (ZOLOFT (more content not included)... Normal [facility] [facility] CT BRAIN WO IVCONon 11-03-[address] BRAIN WO IVCON * * *Final Report* * * DATE OF EXAM: Nov 03 2023 7:42PM [facility] 0504 - CT BRAIN WO IVCON / [...] reduction techniques were required COMPARISON: None. RESULT: Template Reproduction Technician (topogram) images: No additional findings. Post-operative change: [...] No clear evidence of an acute abnormality. Special Inspector: [facility] Transcribe Date/Time: Nov 03 2023 7:43P Dictated by : HERMAN DOWD MD This examination was interpreted and the report reviewed and electronically signed by: HERMAN DOWD MD on Nov 03 2023 7:44PM EST [id number] Normal [facility] [place], Bld SerPl-sCncon [place] [Moles/Vol] 0.5 mmol/L Low 0.6-1.2 [facility] Comment on above: Order Comment: Speci men Type: BLOOD SPECIMEN Ordering Facility: [facility] Address: [address] [place], [place] [address] Result Comment: Refe rence ranges and high/low indicator flags are provided as general guidelines only. The treating physician must determine appropriate target levels/dosing based on the specific clinical situation. Performed By: #### 1 4334-7, 4086-5 #### [facility] CLIA [id number] [address] [place] [address] [place] Magnesium SerPl-ncon 11-02 Magnesium [Mass/Vol] 2.2 mg/dL Normal 1.7-2.3 [facility] Comment on above: Order Comment: Speci men Type: BLOOD SPECIMEN Ordering Facility: [facility] Address: [address] [place] [address] Performed By: #### 2 777-1, 53748-2, 95197-6 #### [facility] CLIA [id number] [address] [place] [address] [place] Phosph[facility] Phosphate [Mass/Vol] 2.5 mg/dL Low 2.7-4.8 [facility] Comment on above: Order Comment: Speci men Type: BLOOD SPECIMEN Ordering Facility: [facility] Address: [address] [place] [address] Performed By: #### 2 777-1, 21765-6, #### [facility] CLIA [id number] [address] [place] [address] [place] THERAPY NTon 11-03-2023 THERAPY NT HNO ID: [id number] Author: ANKITA JC PT, DPT Service: Physical Therapy Author Type: Physical Therapist Type: Therapy (PT/OT/Speech/Resp) Filed: 11/03/2023 13:48 Note Text: PHYSICAL THERAPY MISSED VISIT SERVICE DATE: 11/03/2023 SERVICE TIME: 1347 ROOM: [place] [id number] Patient not seen due to Patient Not Available. Another service at bedside upon time of arrival x2 attempts. Will follow up as able/appropriate. SIGNATURE: Ankita Fine, PT, DPT PATIENT NAME: Johnny Devine DATE: November 03, 2023 TIME: 1:48 PM Normal [facility] Val[place] SerPl-mCncon 11-02 Valproate [Mass/Vol] 53.0 ug/mL Normal 50.0-100.0 [facility] Comment on above: Order Comment: Speci men Type: BLOOD SPECIMEN Ordering Facility: [facility] Address: [address] [place] [address] Result Comment: Refe rence ranges and high/low indicator flags are provided as general guidelines only. The treating physician must determine appropriate target levels/dosing based on the specific clinical situation. Performed By: #### 1 4334-7, 4086-5 #### [facility] CLIA [id number] [address] [place] [address] [place] Basic metabolic 2000 panelon 11-02-2023 Anion gap [Moles/Vol] 8 mmol/L Low 9-18 [facility] Comment on above: Order Comment: Speci men Type: BLOOD SPECIMEN Ordering Facility: [facility] Address: [address] [place] [address] Performed By: #### 2 777-1, 28571-2, #### [facility] CLIA [id number] [address] [place] [address] [place] Calcium [Mass/Vol] 7.7 mg/dL Low 8.5-10.2 [facility] Comment on above: Order Comment: Speci men Type: BLOOD SPECIMEN Ordering Facility: [facility] Address: [address] [place] [address] Performed By: #### 2 777-1, 63698-4, #### [facility] CLIA [id number] [address] [place] [address] [place] Chloride [Moles/Vol] 109 mmol/L High 97-105 [facility] Comment on above: Order Comment: Speci men Type: BLOOD SPECIMEN Ordering Facility: [facility] Address: [address] [place] [address] Performed By: #### 2 777-1, 66101-2, #### [facility] CLIA [id number] [address] [place] [address] [place] CO2 [Moles/Vol] 24 mmol/L Normal 22-30 [facility] Comment on above: Order Comment: Speci men Type: BLOOD SPECIMEN Ordering Facility: [facility] Address: [address] [place] [address] Performed By: #### 2 777-1, 12802-9, #### [facility] CLIA [id number] [address] [place] [address] [place] Creatinine [Mass/Vol] 0.66 mg/dL Low 0.73-1.22 [facility] Comment on above: Order Comment: Speci men Type: BLOOD SPECIMEN Ordering Facility: [facility] Address: [address] [place] [address] Performed By: #### 2 777-1, 15934-0, #### [facility] CLIA [id number] [address] [place] [address] [place] Creatinine and Glomerular filtration rate.predicted panel (S/P/Bld) 129 mL/min/1.73m??? Normal >=60 [facility] Comment on above: Order Comment: Speci men Type: BLOOD SPECIMEN Ordering Facility: [facility] Address: [address] [place] [address] Result Comment: Lor mated Glomerular Filtration Rate [...] actual GFR. Performed By: #### 2 777-1, 84692-6, #### [facility] CLIA [id number] [address] [place] [address] [place] Glucose [Mass/Vol] 109 mg/dL High 74-99 [facility] Comment on above: Order Comment: Sana zuñiga Type: BLOOD SPECIMEN Ordering Facility: [facility] Address: [address] [place] [address] Result Comment: The [place] [employer] (ADA) provides guidance for cutoff [...] Standards of Medical Care in Diabetes 2016, [place] [employer]. Diabetes Care. 2016.39(Suppl 1). Performed By: #### 2 777-1, 64975-3, #### [facility] CLIA [id number] [address] [place] [address] [place] Potassium [Moles/Vol] 3.5 mmol/L Low 3.7-5.1 [facility] Comment on above: Order Comment: Akbari men Type: BLOOD SPECIMEN Ordering Facility: [facility] Address: [address] [place] [address] Performed By: #### 2 777-1, 61854-9, #### [facility] CLIA [id number] [address] [place] [address] [place] Sodium [Moles/Vol] 141 mmol/L Normal 136-144 [facility] Comment on above: Order Comment: Akbari men Type: BLOOD SPECIMEN Ordering Facility: [facility] Address: [address] [place] [address] Performed By: #### 2 777-1, 34355-1, #### [facility] CLIA [id number] [address] [place] [address] [place] Urea nitrogen [Mass/Vol] 7 mg/dL Low 9-24 [facility] Comment on above: Order Comment: Speci men Type: BLOOD SPECIMEN Ordering Facility: [facility] Address: [address] [place] [address] Performed By: #### 2 777-1, 38108-1, #### [facility] CLIA [id number] [address] [place] [address] [place] CBC W Auto Differential pane l (Bld)on 11-02-2023 Basophils (Bld) [#/Vol] 0.04 10*3/uL Normal <0.11 [facility] Comment on above: Order Comment: Speci men Type: BLOOD SPECIMEN Ordering Facility: [facility] Address: [address] [place] [address] Performed By: #### 2 4321-2, , 2776-08 #### [facility] CLIA [id number] [address] [place] [address] [place] Basophils/100 WBC (Bld) 0.5 % Normal [facility] Comment on above: Order Comment: Speci men Type: BLOOD SPECIMEN Ordering Facility: [facility] Address: [address] [place] [address] Performed By: #### 2 4321-2, , 2776-08 #### [facility] CLIA [id number] [address] [place] [address] [place] Differential cell count method Nom (Bld) Auto Normal [facility] Comment on above: Order Comment: Speci men Type: BLOOD SPECIMEN Ordering Facility: [facility] Address: [address] [place] [address] Performed By: #### 2 4321-2, , 2776-08 #### [facility] CLIA [id number] [address] [place] [address] [place] Eosinophils (Bld) [#/Vol] 0.24 10*3/uL Normal <0.46 [facility] Comment on above: Order Comment: Speci men Type: BLOOD SPECIMEN Ordering Facility: [facility] Address: [address] [place] [address] Performed By: #### 2 4321-2, , 2776-08 #### [facility] CLIA [id number] [address] [place] [address] [place] Eosinophils/100 WBC (Bld) 3.0 % Normal [facility] Comment on above: Order Comment: Speci men Type: BLOOD SPECIMEN Ordering Facility: [facility] Address: [address] [place] [address] Performed By: #### 2 432-2, , 2776-08 #### [facility] CLIA [id number] [address] [place] [address] [place] Erythrocyte distribution width (RBC) [Ratio] 14.0 % Normal 11.5-15.0 [facility] Comment on above: Order Comment: Speci men Type: BLOOD SPECIMEN Ordering Facility: [facility] Address: [address] [place] [address] Performed By: #### 2 432-2, , 2776-08 #### [facility] CLIA [id number] [address] [place] [address] [place] Hematocrit (Bld) [Volume fraction] 36.5 % Low 39.0-51.0 [facility] Comment on above: Order Comment: Speci men Type: BLOOD SPECIMEN Ordering Facility: [facility] Address: [address] [place] [address] Performed By: #### 2 4321-2, , 2776-08 #### [facility] CLIA [id number] [address] [place] [address] [place] Hemoglobin (Bld) [Mass/Vol] 11.2 g/dL Low 13.0-17.0 [facility] Comment on above: Order Comment: Speci men Type: BLOOD SPECIMEN Ordering Facility: [facility] Address: [address] [place] [address] Performed By: #### 2 4321-2, , 2776-08 #### [facility] CLIA [id number] [address] [place] [address] [place] Immature granulocytes (Bld) [#/Vol] 0.10 10*3/uL High <0.10 [facility] Comment on above: Order Comment: Speci men Type: BLOOD SPECIMEN Ordering Facility: [facility] Address: [address] [place] [address] Performed By: #### 2 432-2, , 2776-08 #### [facility] CLIA [id number] [address] [place] [address] [place] Immature granulocytes/100 WBC (Bld) 1.3 % Normal [facility] Comment on above: Order Comment: Speci men Type: BLOOD SPECIMEN Ordering Facility: [facility] Address: [address] [place] [address] Performed By: #### 2 4321-2, , 2776-08 #### [facility] CLIA [id number] [address] [place] [address] [place] Lymphocytes (Bld) [#/Vol] 1.78 10*3/uL Normal 1.00-4.00 [facility] Comment on above: Order Comment: Speci men Type: BLOOD SPECIMEN Ordering Facility: [facility] Address: [address] [place] [address] Performed By: #### 2 4321-2, , 2776-08 #### [facility] CLIA [id number] [address] [place] [address] [place] Lymphocytes/100 WBC (Bld) 22.3 % Normal [facility] Comment on above: Order Comment: Speci men Type: BLOOD SPECIMEN Ordering Facility: [facility] Address: [address] [place] [address] Performed By: #### 2 4321-2, , 2776-08 #### [facility] CLIA [id number] [address] [place] [address] [place] MCH (RBC) [Entitic mass] 26.2 pg Normal 26.0-34.0 [facility] Comment on above: Order Comment: Speci men Type: BLOOD SPECIMEN Ordering Facility: [facility] Address: [address] [place] [address] Performed By: #### 2 4321-2, , 2776-08 #### [facility] CLIA [id number] [address] [place] [address] [place] MCHC (RBC) [Mass/Vol] 30.7 g/dL Normal 30.5-36.0 [facility] Comment on above: Order Comment: Speci men Type: BLOOD SPECIMEN Ordering Facility: [facility] Address: [address] [place] [address] Performed By: #### 2 4321-2, , 2776-08 #### [facility] CLIA [id number] [address] [place] [address] [place] MCV (RBC) [Entitic vol] 85.5 fL Normal 80.0-100.0 [facility] Comment on above: Order Comment: Speci men Type: BLOOD SPECIMEN Ordering Facility: [facility] Address: [address] [place] [address] Performed By: #### 2 4321-2, , 2776-08 #### [facility] CLIA [id number] [address] [place], [place] [address] [place] Monocytes (Bld) [#/Vol] 0.58 10*3/uL Normal <0.87 [facility] Comment on above: Order Comment: Speci men Type: BLOOD SPECIMEN Ordering Facility: [facility] Address: [address] [place] [address] Performed By: #### 2 4321-2, , 2776-08 #### [facility] CLIA [id number] [address] [place] [address] [place] Monocytes/100 WBC (Bld) 7.3 % Normal [facility] Comment on above: Order Comment: Speci men Type: BLOOD SPECIMEN Ordering Facility: [facility] Address: [address] [place] [address] Performed By: #### 2 4321-2, , 2776-08 #### [facility] CLIA [id number] [address] [place] [address] [place] Neutrophils (Bld) [#/Vol] 5.24 10*3/uL Normal 1.45-7.50 [facility] Comment on above: Order Comment: Speci men Type: BLOOD SPECIMEN Ordering Facility: [facility] Address: [address] [place] [address] Performed By: #### 2 432-2, , 2776-08 #### [facility] CLIA [id number] [address] [place] [address] [place] Neutrophils/100 WBC (Bld) 65.6 % Normal [facility] Comment on above: Order Comment: Speci men Type: BLOOD SPECIMEN Ordering Facility: [facility] Address: [address] [place] [address] Performed By: #### 2 4321-2, , 2776-08 #### [facility] CLIA [id number] [address] [place] [address] [place] Nucleated RBC (Bld) [#/Vol] 10*3/uL Normal <0.01 [facility] Comment on above: Order Comment: Speci men Type: BLOOD SPECIMEN Ordering Facility: [facility] Address: [address] [place] [address] Performed By: #### 2 4321-2, , 2776-08 #### [facility] CLIA [id number] [address] [place] [address] [place] Nucleated RBC/100 WBC (Bld) [Ratio] 0.0 /100 WBC Normal [facility] Comment on above: Order Comment: Speci men Type: BLOOD SPECIMEN Ordering Facility: [facility] Address: [address] [place] [address] Performed By: #### 2 4321-2, , 2776-08 #### [facility] CLIA [id number] [address] [place] [address] [place] Platelet mean volume (Bld) [Entitic vol] 9.7 fL Normal 9.0-12.7 [facility] Comment on above: Order Comment: Speci men Type: BLOOD SPECIMEN Ordering Facility: [facility] Address: [address] [place] [address] Performed By: #### 2 4321-2, , 2776-08 #### [facility] CLIA [id number] [address] [place] [address] [place] Platelets (Bld) [#/Vol] 199 10*3/uL Normal 150-400 [facility] Comment on above: Order Comment: Speci men Type: BLOOD SPECIMEN Ordering Facility: [facility] Address: [address] [place] [address] Performed By: #### 2 4321-2, , 2776-08 #### [facility] CLIA [id number] [address] [place], [place] [address] [place] RBC (Bld) [#/Vol] 4.27 10*6/uL Normal 4.20-6.00 [facility] Comment on above: Order Comment: Speci men Type: BLOOD SPECIMEN Ordering Facility: [facility] Address: [address] [place] [address] Performed By: #### 2 4321-2, 65338-0, 2776-08 #### [facility] CLIA [id number] [address] [place] [address] [place] WBC (Bld) [#/Vol] 7.98 10*3/uL Normal 3.70-11.00 [facility] Comment on above: Order Comment: Speci men Type: BLOOD SPECIMEN Ordering Facility: [facility] Address: [address] [place] [address] Performed By: #### 2 4321-2, , 2776-08 #### [facility] CLIA [id number] [address] [place] [address] [place] Magnesium SerPl-mCncon 11-01 Magnesium [Mass/Vol] 2.3 mg/dL Normal 1.7-2.3 [facility] Comment on above: Order Comment: Speci men Type: BLOOD SPECIMEN Ordering Facility: [facility] Address: [address] [place] [address] Performed By: #### 2 777-1, 61298-7, #### [facility] CLIA [id number] [address] [place] [address] [place] Phosphate SerPl-mCncon 11-01 Phosphate [Mass/Vol] 2.6 mg/dL Low 2.7-4.8 [facility] Comment on above: Order Comment: Speci men Type: BLOOD SPECIMEN Ordering Facility: [facility] Address: [address] [place] [address] Performed By: #### 2 777-1, 32422-2, #### [facility] CLIA [id number] [address] [place] [address] [place] XR ABDOMEN 1V [...] small bowel. Findings suggestive of improving ileus. Special Inspector: [facility] Transcribe Date/Time: Nov 02 2023 11:50A Dictated by : VERONICA CARTER MD This examination was interpreted and the report reviewed and electronically signed by: VERONICA CARTER MD on Nov 02 2023 11:52AM EST [id number] Normal [facility] Basic metabolic 2000 panelon 11-01-2023 Anion gap [Moles/Vol] 10 mmol/L Normal 9-18 [facility] Comment on above: Order Comment: Speci men Type: BLOOD SPECIMEN Ordering Facility: [facility] Address: [address] [place] [address] Performed By: #### 5 7021-8 #### [facility] CLIA [id number] [address] [place] [address] [place] Calcium [Mass/Vol] 7.9 mg/dL Low 8.5-10.2 [facility] Comment on above: Order Comment: Speci men Type: BLOOD SPECIMEN Ordering Facility: [facility] Address: [address] [place] [address] Performed By: #### 5 7021-8 #### [facility] CLIA [id number] [address] [place] [address] [place] Chloride [Moles/Vol] 114 mmol/L High 97-105 [facility] Comment on above: Order Comment: Speci men Type: BLOOD SPECIMEN Ordering Facility: [facility] Address: [address] [place] [address] Performed By: #### 5 7021-8 #### [facility] CLIA [id number] [address] [place] [address] [place] CO2 [Moles/Vol] 22 mmol/L Normal 22-30 [facility] Comment on above: Order Comment: Speci men Type: BLOOD SPECIMEN Ordering Facility: [facility] Address: [address] [place] [address] Performed By: #### 5 7021-8 #### [facility] CLIA [id number] [address] [place] [address] [place] Creatinine [Mass/Vol] 0.74 mg/dL Normal 0.73-1.22 [facility] Comment on above: Order Comment: Speci men Type: BLOOD SPECIMEN Ordering Facility: [facility] Address: [address] [place] [address] Performed By: #### 5 7021-8 #### [facility] CLIA [id number] [address] [place] [address] [place] Creatinine and Glomerular filtration rate.predicted panel (S/P/Bld) 124 mL/min/1.73m??? Normal >=60 [facility] Comment on above: Order Comment: Speci men Type: BLOOD SPECIMEN Ordering Facility: [facility] Address: [address] [place] [address] Result Comment: Lor mated Glomerular Filtration Rate [...] GFR. Performed By: #### 5 7021-8 #### [facility] CLIA [id number] [address] [place] [address] [place] Glucose [Mass/Vol] 98 mg/dL Normal 74-99 [facility] Comment on above: Order Comment: Sana zuñiga Type: BLOOD SPECIMEN Ordering Facility: [facility] Address: [address] [place] [address] Result Comment: The [place] [employer] (ADA) provides guidance for cutoff [...] Standards of Medical Care in Diabetes 2016, [place] [employer]. Diabetes Care. 2016.39(Suppl 1). Performed By: #### 5 7021-8 #### [facility] CLIA [id number] [address] [place] [address] [place] Potassium [Moles/Vol] 3.9 mmol/L Normal 3.7-5.1 [facility] Comment on above: Order Comment: Akbari men Type: BLOOD SPECIMEN Ordering Facility: [facility] Address: [address] [place] [address] Performed By: #### 5 7021-8 #### [facility] CLIA [id number] [address] [place] [address] [place] Sodium [Moles/Vol] 146 mmol/L High 136-144 [facility] Comment on above: Order Comment: Sana zuñiga Type: BLOOD SPECIMEN Ordering Facility: [facility] Address: [address] [place] [address] Performed By: #### 5 7021-8 #### [facility] CLIA [id number] [address] [place] [address] [place] Urea nitrogen [Mass/Vol] 9 mg/dL Normal 9-24 [facility] Comment on above: Order Comment: Speci men Type: BLOOD SPECIMEN Ordering Facility: [facility] Address: [address] [place] [address] Performed By: #### 5 7021-8 #### [facility] CLIA [id number] [address] [place] [address] [place] CBC W Auto Differential pane l (Bld)on 11-01-2023 Basophils (Bld) [#/Vol] 10*3/uL Normal <0.11 [facility] Comment on above: Order Comment: Speci men Type: BLOOD SPECIMENOrdering Facility: [facility] Address: [address] [place] [address] Performed By: #### 5 7021-8 ####[facility] [id number] [place] [address] [place] Basophils/100 WBC (Bld) 0.3 % Normal [facility] Comment on above: Order Comment: Speci men Type: BLOOD SPECIMENOrdering Facility: [facility] Address: [address] [place] [address] Performed By: #### 5 7021-8 ####[facility] [id number] [place] [address] [place] Differential cell count method Nom (Bld) Auto Normal [facility] Comment on above: Order Comment: Speci men Type: BLOOD SPECIMENOrdering Facility: [facility] Address: [address] [place] [address] Performed By: #### 5 7021-8 ####[facility] [id number] [place] [address] [place] Eosinophils (Bld) [#/Vol] 0.23 10*3/uL Normal <0.46 [facility] Comment on above: Order Comment: Speci men Type: BLOOD SPECIMENOrdering Facility: [facility] Address: [address] [place] [address] Performed By: #### 5 7021-8 ####[facility] [id number] [place] [address] [place] Eosinophils/100 WBC (Bld) 3.0 % Normal [facility] Comment on above: Order Comment: Speci men Type: BLOOD SPECIMENOrdering Facility: [facility] Address: [address] [place] [address] Performed By: #### 5 7021-8 ####[facility] [id number] [place] [address] [place] Erythrocyte distribution width (RBC) [Ratio] 14.6 % Normal 11.5-15.0 [facility] Comment on above: Order Comment: Speci men Type: BLOOD SPECIMENOrdering Facility: [facility] Address: [address] [place] [address] Performed By: #### 5 7021-8 ####[facility] [id number] [place] [address] [place] Hematocrit (Bld) [Volume fraction] 28.6 % Low 39.0-51.0 [facility] Comment on above: Order Comment: Speci men Type: BLOOD SPECIMENOrdering Facility: [facility] Address: [address] [place] [address] Performed By: #### 5 7021-8 ####[facility] [id number] [place] [address] [place] Hemoglobin (Bld) [Mass/Vol] 9.0 g/dL Low 13.0-17.0 [facility] Comment on above: Order Comment: Speci men Type: BLOOD SPECIMENOrdering Facility: [facility] Address: [address] [place] [address] Performed By: #### 5 7021-8 ####[facility]CLIA [id number] [place] [address] [place] Immature granulocytes (Bld) [#/Vol] 0.05 10*3/uL Normal <0.10 [facility] Comment on above: Order Comment: Speci men Type: BLOOD SPECIMENOrdering Facility: [facility] Address: [address] [place] [address] Performed By: #### 5 7021-8 ####[facility]CLIA [id number] [place] [address] [place] Immature granulocytes/100 WBC (Bld) 0.7 % Normal [facility] Comment on above: Order Comment: Speci men Type: BLOOD SPECIMENOrdering Facility: [facility] Address: [address] [place] [address] Performed By: #### 5 7021-8 ####[facility]CLIA [id number] [place] [address] [place] Lymphocytes (Bld) [#/Vol] 1.86 10*3/uL Normal 1.00-4.00 [facility] Comment on above: Order Comment: Speci men Type: BLOOD SPECIMENOrdering Facility: [facility] Address: [address] [place] [address] Performed By: #### 5 7021-8 ####[facility]CLIA [id number] [place] [address] [place] Lymphocytes/100 WBC (Bld) 24.3 % Normal [facility] Comment on above: Order Comment: Speci men Type: BLOOD SPECIMENOrdering Facility: [facility] Address: [address] [place] [address] Performed By: #### 5 7021-8 ####[facility] LABCLIA [id number] [place] [address] [place] MCH (RBC) [Entitic mass] 26.8 pg Normal 26.0-34.0 [facility] Comment on above: Order Comment: Speci men Type: BLOOD SPECIMENOrdering Facility: [facility] Address: [address] [place] [address] Performed By: #### 5 7021-8 ####[facility] LABCLIA [id number] [place] [address] [place] MCHC (RBC) [Mass/Vol] 31.5 g/dL Normal 30.5-36.0 [facility] Comment on above: Order Comment: Speci men Type: BLOOD SPECIMENOrdering Facility: [facility] Address: [address] [place] [address] Performed By: #### 5 7021-8 ####[facility] [id number] [place] [address] [place] MCV (RBC) [Entitic vol] 85.1 fL Normal 80.0-100.0 [facility] Comment on above: Order Comment: Speci men Type: BLOOD SPECIMENOrdering Facility: [facility] Address: [address] [place] [address] Performed By: #### 5 7021-8 ####[facility] [id number] [place] [address] [place] Monocytes (Bld) [#/Vol] 0.62 10*3/uL Normal <0.87 [facility] Comment on above: Order Comment: Speci men Type: BLOOD SPECIMENOrdering Facility: [facility] Address: [address] [place] [address] Performed By: #### 5 7021-8 ####[facility] [id number] [place] [address] [place] Monocytes/100 WBC (Bld) 8.1 % Normal [facility] Comment on above: Order Comment: Speci men Type: BLOOD SPECIMENOrdering Facility: [facility] Address: [address] [place] [address] Performed By: #### 5 7021-8 ####[facility] LABCLIA [id number] [place] [address] [place] Neutrophils (Bld) [#/Vol] 4.87 10*3/uL Normal 1.45-7.50 [facility] Comment on above: Order Comment: Speci men Type: BLOOD SPECIMENOrdering Facility: [facility] Address: [address] [place] [address] Performed By: #### 5 7021-8 ####[facility]CLIA [id number] [place] [address] [place] Neutrophils/100 WBC (Bld) 63.6 % Normal [facility] Comment on above: Order Comment: Speci men Type: BLOOD SPECIMENOrdering Facility: [facility] Address: [address] [place] [address] Performed By: #### 5 7021-8 ####[facility]CLIA [id number] [place] [address] [place] Nucleated RBC (Bld) [#/Vol] 10*3/uL Normal <0.01 [facility] Comment on above: Order Comment: Speci men Type: BLOOD SPECIMENOrdering Facility: [facility] Address: [address] [place] [address] Performed By: #### 5 7021-8 ####[facility]CLIA [id number] [place] [address] [place] Nucleated RBC/100 WBC (Bld) [Ratio] 0.0 /100 WBC Normal [facility] Comment on above: Order Comment: Speci men Type: BLOOD SPECIMENOrdering Facility: [facility] Address: [address] [place] [address] Performed By: #### 5 7021-8 ####[facility]CLIA [id number] [place] [address] [place] Platelet mean volume (Bld) [Entitic vol] 9.6 fL Normal 9.0-12.7 [facility] Comment on above: Order Comment: Speci men Type: BLOOD SPECIMENOrdering Facility: [facility] Address: [address] [place] [address] Performed By: #### 5 7021-8 ####[facility] LABCLIA [id number] [place] [address] [place] Platelets (Bld) [#/Vol] 148 10*3/uL Low 150-400 [facility] Comment on above: Order Comment: Speci men Type: BLOOD SPECIMENOrdering Facility: [facility] Address: [address] [place] [address] Performed By: #### 5 7021-8 ####[facility] [id number] [place] [address] [place] RBC (Bld) [#/Vol] 3.36 10*6/uL Low 4.20-6.00 [facility] Comment on above: Order Comment: Speci men Type: BLOOD SPECIMENOrdering Facility: [facility] Address: [address] [place] [address] Performed By: #### 5 7021-8 ####[facility]IA [id number] [place] [address] [place] WBC (Bld) [#/Vol] 7.65 10*3/uL Normal 3.70-11.00 [facility] Comment on above: Order Comment: Speci men Type: BLOOD SPECIMENOrdering Facility: [facility] Address: [address] [place] [address] Performed By: #### 5 7021-8 ####[facility]IA [id number] [place] [address] [place] Magnesium SerPl-mCncon 10-31 Magnesium [Mass/Vol] 2.4 mg/dL High 1.7-2.3 [facility] Comment on above: Order Comment: Speci men Type: BLOOD SPECIMEN [facility] Address: [address] [place] [address] Performed By: #### 5 7021-8 #### [facility] CLIA [id number] [address] [place] [address] [place] Phosphate SerPl-mCncon 10-31 Phosphate [Mass/Vol] 2.3 mg/dL Low 2.7-4.8 [facility] Comment on above: Order Comment: Speci men Type: BLOOD SPECIMEN [facility] Address: [address] [place] [address] Performed By: #### 5 7021-8 #### [facility] CLIA [id number] [address] [place] [address] [place] Basic metabolic 2000 panelon 10-31-2023 Anion gap [Moles/Vol] 10 mmol/L Normal 9-18 [facility] Comment on above: Order Comment: Speci men Type: BLOOD SPECIMEN [facility] Address: [address] [place] [address] Performed By: #### 2 777-1, 52754-5, #### [facility] CLIA [id number] [address] [place] [address] [place] Calcium [Mass/Vol] 7.8 mg/dL Low 8.5-10.2 [facility] Comment on above: Order Comment: Speci men Type: BLOOD SPECIMEN [facility] Address: [address] [place] [address] Performed By: #### 2 777-1, 89259-0, 58405-4 #### [facility] CLIA [id number] [address] [place] [address] [place] Chloride [Moles/Vol] 115 mmol/L High 97-105 [facility] Comment on above: Order Comment: Speci men Type: BLOOD SPECIMEN [facility] Address: [address] [place], [place] [address] Performed By: #### 2 777-1, 03970-2, #### [facility] CLIA [id number] [address] [place], [place] [address] [place] CO2 [Moles/Vol] 23 mmol/L Normal 22-30 [facility] Comment on above: Order Comment: Speci men Type: BLOOD SPECIMEN [facility] Address: [address] [place] [address] Performed By: #### 2 777-1, 52727-9, #### [facility] CLIA [id number] [address] [place] [address] [place] Creatinine [Mass/Vol] 0.72 mg/dL Low 0.73-1.22 [facility] Comment on above: Order Comment: Speci men Type: BLOOD SPECIMEN [facility] Address: [address] [place] [address] Performed By: #### 2 777-1, , #### [facility] CLIA [id number] [address] [place] [address] [place] Creatinine and Glomerular filtration rate.predicted panel (S/P/Bld) 125 mL/min/1.73m??? Normal >=60 [facility] Comment on above: Order Comment: Speci men Type: BLOOD SPECIMEN [facility] Address: [address] [place] [address] Result Comment: Lor mated Glomerular Filtration Rate [...] actual GFR. Performed By: #### 2 777-1, 22723-2, #### [facility] CLIA [id number] [address] [place] [address] [place] Glucose [Mass/Vol] 93 mg/dL Normal 74-99 [facility] Comment on above: Order Comment: Sana men Type: BLOOD SPECIMEN [facility] Address: [address] [place] [address] Result Comment: The [place] [employer] (ADA) provides guidance for cutoff [...] Standards of Medical Care in Diabetes 2016, [place] [employer]. Diabetes Care. 2016.39(Suppl 1). Performed By: #### 2 777-1, , #### [facility] CLIA [id number] [address] [place] [address] [place] Potassium [Moles/Vol] 3.9 mmol/L Normal 3.7-5.1 [facility] Comment on above: Order Comment: Akbari men Type: BLOOD SPECIMEN [facility] Address: [address] [place] [address] Performed By: #### 2 777-1, 14868-3, #### [facility] CLIA [id number] [address] [place] [address] [place] Sodium [Moles/Vol] 148 mmol/L High 136-144 [facility] Comment on above: Order Comment: Akbari men Type: BLOOD SPECIMEN [facility] Address: [address] [place] [address] Performed By: #### 2 777-1, 58170-0, #### [facility] CLIA [id number] [address] [place] [address] [place] Urea nitrogen [Mass/Vol] 8 mg/dL Low 9-24 [facility] Comment on above: Order Comment: Speci men Type: BLOOD SPECIMEN [facility] Address: [address] [place] [address] Performed By: #### 2 777-1, 38459-8, #### [facility] CLIA [id number] [address] [place] [address] [place] CBC W Auto Differential pane l (Bld)on 10-31-2023 Basophils (Bld) [#/Vol] 10*3/uL Normal <0.11 [facility] Comment on above: Order Comment: Speci men Type: BLOOD SPECIMEN [facility] Address: [address] [place] [address] Performed By: #### 5 7021-8 #### [facility] CLIA [id number] [address] [place] [address] [place] Basophils/100 WBC (Bld) 0.2 % Normal [facility] Comment on above: Order Comment: Speci men Type: BLOOD SPECIMEN [facility] Address: [address] [place] [address] Performed By: #### 5 7021-8 #### [facility] CLIA [id number] [address] [place] [address] [place] Differential cell count method Nom (Bld) Auto Normal [facility] Comment on above: Order Comment: Speci men Type: BLOOD SPECIMEN [facility] Address: [address] [place] [address] Performed By: #### 5 7021-8 #### [facility] CLIA [id number] [address] [place] [address] [place] Eosinophils (Bld) [#/Vol] 0.18 10*3/uL Normal <0.46 [facility] Comment on above: Order Comment: Speci men Type: BLOOD SPECIMEN [facility] Address: [address] [place] [address] Performed By: #### 5 7021-8 #### [facility] CLIA [id number] [address] [place] [address] [place] Eosinophils/100 WBC (Bld) 1.9 % Normal [facility] Comment on above: Order Comment: Speci men Type: BLOOD SPECIMEN [facility] Address: [address] [place] [address] Performed By: #### 5 7021-8 #### [facility] CLIA [id number] [address] [place] [address] [place] Erythrocyte distribution width (RBC) [Ratio] 14.5 % Normal 11.5-15.0 [facility] Comment on above: Order Comment: Speci men Type: BLOOD SPECIMEN [facility] Address: [address] [place] [address] Performed By: #### 5 7021-8 #### [facility] CLIA [id number] [address] [place] [address] [place] Hematocrit (Bld) [Volume fraction] 30.2 % Low 39.0-51.0 [facility] Comment on above: Order Comment: Speci men Type: BLOOD SPECIMEN [facility] Address: [address] [place] [address] Performed By: #### 5 7021-8 #### [facility] CLIA [id number] [address] [place] [address] [place] Hemoglobin (Bld) [Mass/Vol] 9.4 g/dL Low 13.0-17.0 [facility] Comment on above: Order Comment: Speci men Type: BLOOD SPECIMEN [facility] Address: [address] [place] [address] Performed By: #### 5 7021-8 #### [facility] CLIA [id number] [address] [place] [address] [place] Immature granulocytes (Bld) [#/Vol] 0.06 10*3/uL Normal <0.10 [facility] Comment on above: Order Comment: Speci men Type: BLOOD SPECIMEN [facility] Address: [address] [place] [address] Performed By: #### 5 7021-8 #### [facility] CLIA [id number] [address] [place] [address] [place] Immature granulocytes/100 WBC (Bld) 0.6 % Normal [facility] Comment on above: Order Comment: Speci men Type: BLOOD SPECIMEN [facility] Address: [address] [place] [address] Performed By: #### 5 7021-8 #### [facility] CLIA [id number] [address] [place] [address] [place] Lymphocytes (Bld) [#/Vol] 1.61 10*3/uL Normal 1.00-4.00 [facility] Comment on above: Order Comment: Speci men Type: BLOOD SPECIMEN [facility] Address: [address] [place] [address] Performed By: #### 5 7021-8 #### [facility] CLIA [id number] [address] [place] [address] [place] Lymphocytes/100 WBC (Bld) 16.8 % Normal [facility] Comment on above: Order Comment: Speci men Type: BLOOD SPECIMEN [facility] Address: [address] [place] [address] Performed By: #### 5 7021-8 #### [facility] CLIA [id number] [address] [place] [address] [place] MCH (RBC) [Entitic mass] 26.5 pg Normal 26.0-34.0 [facility] Comment on above: Order Comment: Speci men Type: BLOOD SPECIMEN [facility] Address: [address] [place] [address] Performed By: #### 5 7021-8 #### [facility] CLIA [id number] [address] [place] [address] [place] MCHC (RBC) [Mass/Vol] 31.1 g/dL Normal 30.5-36.0 [facility] Comment on above: Order Comment: Speci men Type: BLOOD SPECIMEN [facility] Address: [address] [place] [address] Performed By: #### 5 7021-8 #### [facility] CLIA [id number] [address] [place] [address] [place] MCV (RBC) [Entitic vol] 85.1 fL Normal 80.0-100.0 [facility] Comment on above: Order Comment: Speci men Type: BLOOD SPECIMEN [facility] Address: [address] [place] [address] Performed By: #### 5 7021-8 #### [facility] CLIA [id number] [address] [place] [address] [place] Monocytes (Bld) [#/Vol] 0.88 10*3/uL High <0.87 [facility] Comment on above: Order Comment: Speci men Type: BLOOD SPECIMEN [facility] Address: [address] [place] [address] Performed By: #### 5 7021-8 #### [facility] CLIA [id number] [address] [place] [address] [place] Monocytes/100 WBC (Bld) 9.2 % Normal [facility] Comment on above: Order Comment: Speci men Type: BLOOD SPECIMEN [facility] Address: [address] [place] [address] Performed By: #### 5 7021-8 #### [facility] CLIA [id number] [address] [place] [address] [place] Neutrophils (Bld) [#/Vol] 6.84 10*3/uL Normal 1.45-7.50 [facility] Comment on above: Order Comment: Speci men Type: BLOOD SPECIMEN [facility] Address: [address] [place] [address] Performed By: #### 5 7021-8 #### [facility] CLIA [id number] [address] [place] [address] [place] Neutrophils/100 WBC (Bld) 71.3 % Normal [facility] Comment on above: Order Comment: Speci men Type: BLOOD SPECIMEN [facility] Address: [address] [place] [address] Performed By: #### 5 7021-8 #### [facility] CLIA [id number] [address] [place] [address] [place] Nucleated RBC (Bld) [#/Vol] 10*3/uL Normal <0.01 [facility] Comment on above: Order Comment: Speci men Type: BLOOD SPECIMEN [facility] Address: [address] [place] [address] Performed By: #### 5 7021-8 #### [facility] CLIA [id number] [address] [place] [address] [place] Nucleated RBC/100 WBC (Bld) [Ratio] 0.0 /100 WBC Normal [facility] Comment on above: Order Comment: Speci men Type: BLOOD SPECIMEN [facility] Address: [address] [place] [address] Performed By: #### 5 7021-8 #### [facility] CLIA [id number] [address] [place] [address] [place] Platelet mean volume (Bld) [Entitic vol] 9.8 fL Normal 9.0-12.7 [facility] Comment on above: Order Comment: Speci men Type: BLOOD SPECIMEN [facility] Address: [address] [place] [address] Performed By: #### 5 7021-8 #### [facility] CLIA [id number] [address] [place] [address] [place] Platelets (Bld) [#/Vol] 144 10*3/uL Low 150-400 [facility] Comment on above: Order Comment: Speci men Type: BLOOD SPECIMEN [facility]: [facility] Address: [address] [place] [address] Result Comment: Resu lts checked and verified.No clot detected. Performed By: #### 5 7021-8 #### [facility] CLIA [id number] [address] [place] [address] [place] RBC (Bld) [#/Vol] 3.55 10*6/uL Low 4.20-6.00 [facility] Comment on above: Order Comment: Speci men Type: BLOOD SPECIMEN [facility] Address: [address] [place] [address] Performed By: #### 5 7021-8 #### [facility] CLIA [id number] [address] [place] [address] [place] WBC (Bld) [#/Vol] 9.59 10*3/uL Normal 3.70-11.00 [facility] Comment on above: Order Comment: Speci men Type: BLOOD SPECIMEN Ordering Facility: [facility] Address: [address] [place] [address] Performed By: #### 5 7021-8 #### [facility] CLIA [id number] [address] [place] [address] [place] CBC panel Auto (Bld)on 10-30 Erythrocyte distribution width (RBC) [Ratio] 14.5 % Normal 11.5-15.0 [facility] Comment on above: Order Comment: Speci men Type: BLOOD SPECIMEN Ordering Facility: [facility] Address: [address] [place] [address] Performed By: #### 5 7021-8 #### [facility] CLIA [id number] [address] [place] [address] [place] Hematocrit (Bld) [Volume fraction] 28.6 % Low 39.0-51.0 [facility] Comment on above: Order Comment: Speci men Type: BLOOD SPECIMEN Ordering Facility: [facility] Address: [address] [place] [address] Performed By: #### 5 7021-8 #### [facility] CLIA [id number] [address] [place] [address] [place] Hemoglobin (Bld) [Mass/Vol] 9.1 g/dL Low 13.0-17.0 [facility] Comment on above: Order Comment: Speci men Type: BLOOD SPECIMEN Ordering Facility: [facility] Address: [address] [place] [address] Performed By: #### 5 7021-8 #### [facility] CLIA [id number] [address] [place] [address] [place] MCH (RBC) [Entitic mass] 27.1 pg Normal 26.0-34.0 [facility] Comment on above: Order Comment: Speci men Type: BLOOD SPECIMEN Ordering Facility: [facility] Address: [address] [place] [address] Performed By: #### 5 7021-8 #### [facility] CLIA [id number] [address] [place] [address] [place] MCHC (RBC) [Mass/Vol] 31.8 g/dL Normal 30.5-36.0 [facility] Comment on above: Order Comment: Speci men Type: BLOOD SPECIMEN Ordering Facility: [facility] Address: [address] [place] [address] Performed By: #### 5 7021-8 #### [facility] CLIA [id number] [address] [place] [address] [place] MCV (RBC) [Entitic vol] 85.1 fL Normal 80.0-100.0 [facility] Comment on above: Order Comment: Speci men Type: BLOOD SPECIMEN Ordering Facility: [facility] Address: [address] [place] [address] Performed By: #### 5 7021-8 #### [facility] CLIA [id number] [address] [place] [address] [place] Nucleated RBC (Bld) [#/Vol] 10*3/uL Normal <0.01 [facility] Comment on above: Order Comment: Speci men Type: BLOOD SPECIMEN Ordering Facility: [facility] Address: [address] [place] [address] Performed By: #### 5 7021-8 #### [facility] CLIA [id number] [address] [place] [address] [place] Platelet mean volume (Bld) [Entitic vol] 10.1 fL Normal 9.0-12.7 [facility] Comment on above: Order Comment: Speci men Type: BLOOD SPECIMEN Ordering Facility: [facility] Address: [address] [place] [address] Performed By: #### 5 7021-8 #### [facility] CLIA [id number] [address] [place] [address] [place] Platelets (Bld) [#/Vol] 180 10*3/uL Normal 150-400 [facility] Comment on above: Order Comment: Speci men Type: BLOOD SPECIMEN [facility] Facility: [facility] Address: [address] [place] [address] Performed By: #### 5 7021-8 #### [facility] CLIA [id number] [address] [place] [address] [place] RBC (Bld) [#/Vol] 3.36 10*6/uL Low 4.20-6.00 [facility] Comment on above: Order Comment: Speci men Type: BLOOD SPECIMEN Ordering Facility: [facility] Address: [address] [place] [address] Performed By: #### 5 7021-8 #### [facility] CLIA [id number] [address] [place] [address] [place] WBC (Bld) [#/Vol] 10.06 10*3/uL Normal 3.70-11.00 [facility] Comment on above: Order Comment: Speci men Type: BLOOD SPECIMEN Ordering Facility: [facility] Address: [address] [place] [address] Performed By: #### 5 7021-8 #### [facility] CLIA [id number] [address] [place] [address] [place] CONSULT PROGon 10-31-2023 CONSULT PROG HNO ID: [id number] Author: HEAVEN CAMACHO MD Service: Urology Author Type: Resident Type: Consult Progress Note Filed: 10/31/2023 06:56 Note Text: [facility] UROLOGY PROGRESS NOTE Name: Johnny Devine Bed: H071 [id number] Date: 10/31/2023 After Hours [facility] Urology Service Pager: [phone] ASSESSMENT AND PLAN Johnny Devine is a [...] affiliate, Dr. Joseph Camacho MD Urology Resident [facility] Pager [phone] For weekend or after hours issues please page the on-call urology pager [phone] 10/31/2023 6:48 AM Subjective SUBJECTIVE - See [...] Imaging All relevant recent imaging reviewed Normal [facility] Comprehensive metabolic 2000 panelon 10-31-2023 Albumin [Mass/Vol] 3.1 g/dL Low 3.9-4.9 [facility] Comment on above: Order Comment: Speci men Type: BLOOD SPECIMEN Ordering Facility: [facility] Address: [address] [place] [address] Performed By: #### 5 7021-8 #### [facility] CLIA [id number] [address] [place] [address] [place] ALP [Catalytic activity/Vol] 31 U/L Low 38-113 [facility] Comment on above: Order Comment: Speci men Type: BLOOD SPECIMEN Ordering Facility: [facility] Address: [address] [place] [address] Performed By: #### 5 7021-8 #### [facility] CLIA [id number] [address] [place] [address] [place] ALT [Catalytic activity/Vol] 6 U/L Low 10-54 [facility] Comment on above: Order Comment: Speci men Type: BLOOD SPECIMEN Ordering Facility: [facility] Address: [address] [place] [address] Performed By: #### 5 7021-8 #### [facility] CLIA [id number] [address] [place] [address] [place] Anion gap [Moles/Vol] 6 mmol/L Low 9-18 [facility] Comment on above: Order Comment: Speci men Type: BLOOD SPECIMEN Ordering Facility: [facility] Address: [address] [place] [address] Performed By: #### 5 7021-8 #### [facility] CLIA [id number] [address] [place] [address] [place] AST [Catalytic activity/Vol] 13 U/L Low 14-40 [facility] Comment on above: Order Comment: Speci men Type: BLOOD SPECIMEN Ordering Facility: [facility] Address: [address] [place] [address] Performed By: #### 5 7021-8 #### [facility] CLIA [id number] [address] [place] [address] [place] Bilirubin [Mass/Vol] mg/dL Low 0.2-1.3 [facility] Comment on above: Order Comment: Speci men Type: BLOOD SPECIMEN Ordering Facility: [facility] Address: [address] [place] [address] Performed By: #### 5 7021-8 #### [facility] CLIA [id number] [address] [place] [address] [place] Calcium [Mass/Vol] 7.4 mg/dL Low 8.5-10.2 [facility] Comment on above: Order Comment: Speci men Type: BLOOD SPECIMEN Ordering Facility: [facility] Address: [address] [place] [address] Performed By: #### 5 7021-8 #### [facility] CLIA [id number] [address] [place] [address] [place] Chloride [Moles/Vol] 115 mmol/L High 97-105 [facility] Comment on above: Order Comment: Speci men Type: BLOOD SPECIMEN Ordering Facility: [facility] Address: [address] [place] [address] Performed By: #### 5 7021-8 #### [facility] CLIA [id number] [address] [place] [address] [place] CO2 [Moles/Vol] 26 mmol/L Normal 22-30 [facility] Comment on above: Order Comment: Speci men Type: BLOOD SPECIMEN Ordering Facility: [facility] Address: [address] [place] [address] Performed By: #### 5 7021-8 #### [facility] CLIA [id number] [address] [place] [address] [place] Creatinine [Mass/Vol] 0.73 mg/dL Normal 0.73-1.22 [facility] Comment on above: Order Comment: Sana zuñiga Type: BLOOD SPECIMEN Ordering Facility: [facility] Address: [address] [place] [address] Performed By: #### 5 7021-8 #### [facility] CLIA [id number] [address] [place] [address] [place] Creatinine and Glomerular filtration rate.predicted panel (S/P/Bld) 125 mL/min/1.73m??? Normal >=60 [facility] Comment on above: Order Comment: Sana zuñiga Type: BLOOD SPECIMEN Ordering Facility: [facility] Address: [address] [place] [address] Result Comment: Lor mated Glomerular Filtration Rate [...] GFR. Performed By: #### 5 7021-8 #### [facility] CLIA [id number] [address] [place] [address] [place] Glucose [Mass/Vol] 103 mg/dL High 74-99 [facility] Comment on above: Order Comment: Akbari men Type: BLOOD SPECIMEN Ordering Facility: [facility] Address: [address] [place] [address] Result Comment: The [place] [employer] (ADA) provides guidance for cutoff [...] Standards of Medical Care in Diabetes 2016, [place] [employer]. Diabetes Care. 2016.39(Suppl 1). Performed By: #### 5 7021-8 #### [facility] CLIA [id number] [address] [place] [address] [place] Potassium [Moles/Vol] 4.0 mmol/L Normal 3.7-5.1 [facility] Comment on above: Order Comment: Speci men Type: BLOOD SPECIMEN Ordering Facility: [facility] Address: [address] [place] [address] Performed By: #### 5 7021-8 #### [facility] CLIA [id number] [address] [place] [address] [place] Protein [Mass/Vol] 5.6 g/dL Low 6.3-8.0 [facility] Comment on above: Order Comment: Speci men Type: BLOOD SPECIMEN Ordering Facility: [facility] Address: [address] [place] [address] Performed By: #### 5 7021-8 #### [facility] CLIA [id number] [address] [place] [address] [place] Sodium [Moles/Vol] 147 mmol/L High 136-144 [facility] Comment on above: Order Comment: Speci men Type: BLOOD SPECIMEN Ordering Facility: [facility] Address: [address] [place] [address] Performed By: #### 5 7021-8 #### [facility] CLIA [id number] [address] [place] [address] [place] Urea nitrogen [Mass/Vol] 9 mg/dL Normal 9-24 [facility] Comment on above: Order Comment: Speci men Type: BLOOD SPECIMEN Ordering Facility: [facility] Address: [address] [place] [address] Performed By: #### 5 7021-8 #### [facility] CLIA [id number] [address] [place] [address] [place] [address] [place] [id number] 10-31-2023 ECG01 Ventricular Rate : 9 3 BPM Atrial Rate : 93 BPM P-R Interval : 146 ms QRS Duration : 90 ms Q-T Interval : 394 ms QTC Calculation(Bazett) : 489 ms Calculated P [place] : 7 degrees Calculated R [place] : 11 degrees Calculated T [place] : -11 degrees NORMAL SINUS RHYTHM ANTEROLATERAL T WAVE ABNORMALITY BORDERLINE PROLONGED QTC ABNORMAL ECG Confirmed by TRENT BYRD MD ([id number]) on 11/06/2023 9:42:18 AM NAME : JOHNNY DEVINE PID : [id number] : 1990 Gender : Male Race : ORD : Procedure Date : Oct 31 2023 15:33:44 Edit Date : Nov 06 2023 09:42:18 Diagnosis: NORMAL SINUS RHYTHM ANTEROLATERAL T WAVE ABNORMALITY BORDERLINE PROLONGED QTC ABNORMAL ECG Confirmed by TRENT BYRD MD ([id number]) on 11/06/2023 9:42:18 AM Test Reason : AMET Location : 74 : 1 1- Overread By : TRENT BYRD MD Edited By : TRENT BYRD MD Referred By : PHOENIX CARDENAS Acquired by : MARI DUMONT [facility] MEDICAL EMERon 10-31-2023 MEDICAL FOREST HNO ID: [id number] Author: PASTORA KINGSLEY APRN.TRAVELING SECRETARY Service: Critical Care Author Type: Nurse Practitioner [...] October 31, 2023 TIME: 4:13 PM Normal [facility] Magnesium SerPl-mCncon 10-30 Magnesium [Mass/Vol] 2.2 mg/dL Normal 1.7-2.3 [facility] Comment on above: Order Comment: Speci men Type: BLOOD SPECIMENOrdering Facility: [facility] Address: [address] [place] [address] Performed By: #### 1 9123-9, 2777-1 ####[facility] [id number] [place] [address] [place] Magnesium [Mass/Vol] 2.1 mg/dL Normal 1.7-2.3 [facility] Comment on above: Order Comment: Speci men Type: BLOOD SPECIMEN Ordering Facility: [facility] Address: [address] [place] [address] Performed By: #### 2 777-1, 24836-4, 03106-1 #### [facility] CLIA [id number] [address] [place] [address] [place] NURSING PROGon 10-31-2023 NURSING PROG HNO ID: [id number] Author: PAZ RIGGINS RN Service: Nursing Author Type: Registered Nurse Type: Nursing Progress Note Filed: 10/31/2023 16:32 Note Text: Called into patients room by brother who stated patient was shaking hard and having seizure like activity, on entering room patient was tachypneic and breathing hard, AMET activated. Chest xray ordered, EKG done, labs done, oxygen 89 on RA, 2L NC applied. Normal [facility] Phosphate SerPl-mCncon 10-30 Phosphate [Mass/Vol] 1.4 mg/dL Low 2.7-4.8 [facility] Comment on above: Order Comment: Speci men Type: BLOOD SPECIMENOrdering Facility: [facility] Address: [address] [place] [address] Performed By: #### 1 9123-9, 2777-1 ####[facility] [id number] [place] [address] [place] Phosphate [Mass/Vol] 2.1 mg/dL Low 2.7-4.8 [facility] Comment on above: Order Comment: Speci men Type: BLOOD SPECIMEN Ordering Facility: [facility] Address: [address] [place] [address] Performed By: #### 2 777-1, 42413-1, 55195-6 #### [facility] CLIA [id number] [address] [place] [address] [place] [address] [place] XR ABDOMEN 1V [...] abnormality. Lung bases are not well seen. Special Inspector: PSCB Transcribe Date/Time: Oct 31 2023 5:15P Dictated by : LEONEL ALONZO MD This examination was interpreted and the report reviewed and electronically signed by: LEONEL ALONZO MD on Oct 31 2023 5:22PM EST [id number] Normal [facility] XR CHEST 1V FRONTAL PORTon 0 [...] cardiomediastinal silhouette. Other: . IMPRESSION: See result. Special Inspector: PSCB Transcribe Date/Time: Oct 31 2023 4:14P Dictated by : SHEA WORTHY MD This examination was interpreted and the report reviewed and electronically signed by: SHEA WORTHY MD on Oct 31 2023 4:15PM EST [id number] Normal [facility] ANES POSTPROC EVALon 024 ANES POSTPROC EVAL HNO ID: [id number] Author: JEERMIE JOAQUIN MD Service: ? Author Type: Anesthesiologist Type: Anesthesia Postprocedure Evaluation Filed: 10/30/2023 11:55 Note Text: POST ANESTHESIA EVALUATION NOTE : 1990 Procedure Summary Date: 10/30/23 [address] Start: 731 Anesthesia Stop: 902 [...] October 30, 2023 TIME: 11:46 AM CSN: [id number] Normal [facility] ANES PRE-OPon 10-30-2023 ANES PRE-OP HNO ID: [id number] Author: JEREMIE JOAQUIN MD Service: ? Author Type: Anesthesiologist Type: Anesthesia Preprocedure Evaluation Filed: 10/30/2023 08:16 Note Text: ANESTHESIOLOGY DAY OF SURGERY NOTE : 1990 Procedure Information Date/Time: 10/30/23729 Procedure: DORSAL SLIT FORESKIN EXCEPT (Penis) Location: [facility]IN [facility] Surgeons: Rafael Giraldo MD [...] mL MUCOUS MEMBRANE ONCE - phenol 1 Wink (CHLORASEPTIC) 1 Wink MUCOUS MEMBRANE (TOPICAL MOUTH AND THROAT) q [...] INTRAVENOUS DAILY (6 AM) - phenol 1 Wink (CHLORASEPTIC) 1 Wink MUCOUS MEMBRANE (TOPICAL MOUTH AND THROAT) q [...] MORNING F (more content not included)... Normal [facility] Basic metabolic 2000 panelon 10-30-2023 Anion gap [Moles/Vol] 12 mmol/L Normal 9-18 [facility] Comment on above: Order Comment: Speci men Type: BLOOD SPECIMEN Ordering Facility: [facility] Address: [address] [place] [address] Performed By: #### 2 4321-2, , 2776-08 #### [facility] CLIA [id number] [address] [place] [address] [place] Calcium [Mass/Vol] 7.4 mg/dL Low 8.5-10.2 [facility] Comment on above: Order Comment: Speci men Type: BLOOD SPECIMEN Ordering Facility: [facility] Address: [address] [place] [address] Performed By: #### 2 4321-2, , 2776-08 #### [facility] CLIA [id number] [address] [place] [address] [place] Chloride [Moles/Vol] 113 mmol/L High 97-105 [facility] Comment on above: Order Comment: Speci men Type: BLOOD SPECIMEN Ordering Facility: [facility] Address: [address] [place], [place] [address] Performed By: #### 2 4321-2, , 2776-08 #### [facility] CLIA [id number] [address] [place] [address] [place] CO2 [Moles/Vol] 24 mmol/L Normal 22-30 [facility] Comment on above: Order Comment: Speci men Type: BLOOD SPECIMEN Ordering Facility: [facility] Address: [address] [place], [place] [address] Performed By: #### 2 4321-2, , 2776-08 #### [facility] CLIA [id number] [address] [place] [address] [place] Creatinine [Mass/Vol] 0.69 mg/dL Low 0.73-1.22 [facility] Comment on above: Order Comment: Speci men Type: BLOOD SPECIMEN Ordering Facility: [facility] Address: [address] [place] [address] Performed By: #### 2 4321-2, 02919-7, 2777-1 #### [facility] CLIA [id number] [address] [place] [address] [place] Creatinine and Glomerular filtration rate.predicted panel (S/P/Bld) 127 mL/min/1.73m??? Normal >=60 [facility] Comment on above: Order Comment: Sana zuñiga Type: BLOOD SPECIMEN Ordering Facility: [facility] Address: [address] [place] [address] Result Comment: Lor mated Glomerular Filtration Rate [...] actual GFR. Performed By: #### 2 4321-2, 24489-1, 2777- #### [facility] CLIA [id number] [address] [place] [address] [place] Glucose [Mass/Vol] 98 mg/dL Normal 74-99 [facility] Comment on above: Order Comment: Sana zuñiga Type: BLOOD SPECIMEN Ordering Facility: [facility] Address: [address] [place] [address] Result Comment: The [place] [employer] (ADA) provides guidance for cutoff [...] Standards of Medical Care in Diabetes 2016, [place] [employer]. Diabetes Care. 2016.39(Suppl 1). Performed By: #### 2 4321-2, 91787-4, 2776- #### [facility] CLIA [id number] [address] [place] [address] [place] Potassium [Moles/Vol] 3.6 mmol/L Low 3.7-5.1 [facility] Comment on above: Order Comment: Speci men Type: BLOOD SPECIMEN Ordering Facility: [facility] Address: [address] [place] [address] Performed By: #### 2 4321-2, , 2776-08 #### [facility] CLIA [id number] [address] [place] [address] [place] Sodium [Moles/Vol] 149 mmol/L High 136-144 [facility] Comment on above: Order Comment: Speci men Type: BLOOD SPECIMEN Ordering Facility: [facility] Address: [address] [place] [address] Performed By: #### 2 4321-2, , 2776-08 #### [facility] CLIA [id number] [address] [place] [address] [place] Urea nitrogen [Mass/Vol] 9 mg/dL Normal 9-24 [facility] Comment on above: Order Comment: Speci men Type: BLOOD SPECIMEN Ordering Facility: [facility] Address: [address] [place] [address] Performed By: #### 2 4321-2, , 2776-08 #### [facility] CLIA [id number] [address] [place] [address] [place] CBC W Auto Differential pane l (Bld)on 10-30-2023 Basophils (Bld) [#/Vol] 0.03 10*3/uL Normal <0.11 [facility] Comment on above: Order Comment: Speci men Type: BLOOD SPECIMEN Ordering Facility: [facility] Address: [address] [place] [address] Performed By: #### 5 7021-8 #### [facility] CLIA [id number] [address] [place] [address] [place] Basophils/100 WBC (Bld) 0.3 % Normal [facility] Comment on above: Order Comment: Speci men Type: BLOOD SPECIMEN Ordering Facility: [facility] Address: [address] [place] [address] Performed By: #### 5 7021-8 #### [facility] CLIA [id number] [address] [place] [address] [place] Differential cell count method Nom (Bld) Auto Normal [facility] Comment on above: Order Comment: Speci men Type: BLOOD SPECIMEN Ordering Facility: [facility] Address: [address] [place] [address] Performed By: #### 5 7021-8 #### [facility] CLIA [id number] [address] [place] [address] [place] Eosinophils (Bld) [#/Vol] 0.07 10*3/uL Normal <0.46 [facility] Comment on above: Order Comment: Speci men Type: BLOOD SPECIMEN Ordering Facility: [facility] Address: [address] [place] [address] Performed By: #### 5 7021-8 #### [facility] CLIA [id number] [address] [place] [address] [place] Eosinophils/100 WBC (Bld) 0.6 % Normal [facility] Comment on above: Order Comment: Speci men Type: BLOOD SPECIMEN Ordering Facility: [facility] Address: [address] [place] [address] Performed By: #### 5 7021-8 #### [facility] CLIA [id number] [address] [place] [address] [place] Erythrocyte distribution width (RBC) [Ratio] 14.5 % Normal 11.5-15.0 [facility] Comment on above: Order Comment: Speci men Type: BLOOD SPECIMEN Ordering Facility: [facility] Address: [address] [place] [address] Performed By: #### 5 7021-8 #### [facility] CLIA [id number] [address] [place] [address] [place] Hematocrit (Bld) [Volume fraction] 31.1 % Low 39.0-51.0 [facility] Comment on above: Order Comment: Speci men Type: BLOOD SPECIMEN Ordering Facility: [facility] Address: [address] [place] [address] Performed By: #### 5 7021-8 #### [facility] CLIA [id number] [address] [place] [address] [place] Hemoglobin (Bld) [Mass/Vol] 9.8 g/dL Low 13.0-17.0 [facility] Comment on above: Order Comment: Speci men Type: BLOOD SPECIMEN Ordering Facility: [facility] Address: [address] [place] [address] Performed By: #### 5 7021-8 #### [facility] CLIA [id number] [address] [place] [address] [place] Immature granulocytes (Bld) [#/Vol] 0.06 10*3/uL Normal <0.10 [facility] Comment on above: Order Comment: Speci men Type: BLOOD SPECIMEN Ordering Facility: [facility] Address: [address] [place] [address] Performed By: #### 5 7021-8 #### [facility] CLIA [id number] [address] [place] [address] [place] Immature granulocytes/100 WBC (Bld) 0.5 % Normal [facility] Comment on above: Order Comment: Speci men Type: BLOOD SPECIMEN Ordering Facility: [facility] Address: [address] [place] [address] Performed By: #### 5 7021-8 #### [facility] CLIA [id number] [address] [place] [address] [place] Lymphocytes (Bld) [#/Vol] 1.41 10*3/uL Normal 1.00-4.00 [facility] Comment on above: Order Comment: Speci men Type: BLOOD SPECIMEN Ordering Facility: [facility] Address: [address] [place] [address] Performed By: #### 5 7021-8 #### [facility] CLIA [id number] [address] [place] [address] [place] Lymphocytes/100 WBC (Bld) 12.0 % Normal [facility] Comment on above: Order Comment: Speci men Type: BLOOD SPECIMEN Ordering Facility: [facility] Address: [address] [place] [address] Performed By: #### 5 7021-8 #### [facility] CLIA [id number] [address] [place] [address] [place] MCH (RBC) [Entitic mass] 26.6 pg Normal 26.0-34.0 [facility] Comment on above: Order Comment: Speci men Type: BLOOD SPECIMEN Ordering Facility: [facility] Address: [address] [place] [address] Performed By: #### 5 7021-8 #### [facility] CLIA [id number] [address] [place] [address] [place] MCHC (RBC) [Mass/Vol] 31.5 g/dL Normal 30.5-36.0 [facility] Comment on above: Order Comment: Speci men Type: BLOOD SPECIMEN Ordering Facility: [facility] Address: [address] [place] [address] Performed By: #### 5 7021-8 #### [facility] CLIA [id number] [address] [id number] [address] [place] MCV (RBC) [Entitic vol] 84.5 fL Normal 80.0-100.0 [facility] Comment on above: Order Comment: Speci men Type: BLOOD SPECIMEN Ordering Facility: [facility] Address: [address] [place] [address] Performed By: #### 5 7021-8 #### [facility] CLIA [id number] [address] [place] [address] [place] Monocytes (Bld) [#/Vol] 1.18 10*3/uL High <0.87 [facility] Comment on above: Order Comment: Speci men Type: BLOOD SPECIMEN Ordering Facility: [facility] Address: [address] [place] [address] Performed By: #### 5 7021-8 #### [facility] CLIA [id number] [address] [place] [address] [place] Monocytes/100 WBC (Bld) 10.1 % Normal [facility] Comment on above: Order Comment: Speci men Type: BLOOD SPECIMEN Ordering Facility: [facility] Address: [address] [place] [address] Performed By: #### 5 7021-8 #### [facility] CLIA [id number] [address] [place] [address] [place] Neutrophils (Bld) [#/Vol] 8.98 10*3/uL High 1.45-7.50 [facility] Comment on above: Order Comment: Speci men Type: BLOOD SPECIMEN Ordering Facility: [facility] Address: [address] [place] [address] Performed By: #### 5 7021-8 #### [facility] CLIA [id number] [address] [place] [address] [place] Neutrophils/100 WBC (Bld) 76.5 % Normal [facility] Comment on above: Order Comment: Speci men Type: BLOOD SPECIMEN Ordering Facility: [facility] Address: [address] [place], [place] [address] Performed By: #### 5 7021-8 #### [facility] CLIA [id number] [address] [place] [address] [place] Nucleated RBC (Bld) [#/Vol] 10*3/uL Normal <0.01 [facility] Comment on above: Order Comment: Speci men Type: BLOOD SPECIMEN [facility] [facility] Address: [address] [place] [address] Performed By: #### 5 7021-8 #### [facility] CLIA [id number] [address] [place] [address] [place] Nucleated RBC/100 WBC (Bld) [Ratio] 0.0 /100 WBC Normal [facility] Comment on above: Order Comment: Speci men Type: BLOOD SPECIMEN Ordering Facility: [facility] Address: [address] [place] [address] Performed By: #### 5 7021-8 #### [facility] CLIA [id number] [address] [place] [address] [place] Platelet mean volume (Bld) [Entitic vol] 9.7 fL Normal 9.0-12.7 [facility] Comment on above: Order Comment: Speci men Type: BLOOD SPECIMEN Ordering Facility: [facility] Address: [address] [place] [address] Performed By: #### 5 7021-8 #### [facility] CLIA [id number] [address] [place] [address] [place] Platelets (Bld) [#/Vol] 138 10*3/uL Low 150-400 [facility] Comment on above: Order Comment: Speci men Type: BLOOD SPECIMEN Ordering Facility: [facility] Address: [address] [place] [address] Performed By: #### 5 7021-8 #### [facility] CLIA [id number] [address] [place] [address] [place] RBC (Bld) [#/Vol] 3.68 10*6/uL Low 4.20-6.00 [facility] Comment on above: Order Comment: Speci men Type: BLOOD SPECIMEN Ordering Facility: [facility] Address: [address] [place] [address] Performed By: #### 5 7021-8 #### [facility] CLIA [id number] [address] [place] [address] [place] WBC (Bld) [#/Vol] 11.73 10*3/uL High 3.70-11.00 [facility] Comment on above: Order Comment: Speci men Type: BLOOD SPECIMEN Ordering Facility: [facility] Address: [address] [place] [address] Performed By: #### 5 7021-8 #### [facility] CLIA [id number] [address] [place] [address] [place] CONSULTon 10-30-2023 CONSULT HNO ID: [id number] Author: RAFAEL GIRALDO MD Service: Urology Author [...] the meatal orifice was visualized, an 8 Tajik Haskins catheter was sterilely placed. However, the [...] Dr. 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 CYU was [...] CONGESTIONDisp: Rfl: guanFACINE (INTUNIV ER) 4 mg Cw52Nlia 4 mg by mouth onc (more content not included)... Normal [facility] Magnesium SerPl-mCncon 10-29 Magnesium [Mass/Vol] 2.0 mg/dL Normal 1.7-2.3 [facility] Comment on above: Order Comment: Speci men Type: BLOOD SPECIMENOrdering Facility: [facility] Address: [address] [place] [address] Performed By: #### 2 4321-2, 97966-3, 2777-1 ####[facility] [id number] [address] OF [facility] NURSING PROGon 10-30-2023 NURSING PROG HNO ID: [id number] Author: SHAHRIAR FARFAN, RN Service: Nursing Author Type: Registered Nurse Type: Nursing Progress Note Filed: 10/30/2023 09:52 Note Text: Pt awake, opens eyes spontaneously, MEDINA to command, generalized weakness. Nonverbal at baseline. VSS. Appears comfortable, no grimacing, resting Normal [facility] NURSING PROG HNO ID: [id number] Author: SHAHRIAR FARFAN, RN Service: Nursing Author [...] effective in protecting the patient's safety: Alarms, Plastic Parts Fabricator/Sitter, Bed in Low/Locked Position Next, a comprehensive assessment was performed and warranted placing the patient in Soft Bilateral Wrists, the least restrictive restraint needed to protect the patient's safety. Ongoing safety assessments and evaluation for earliest removal of restraints will be performed. DATE: October 30, 2023 TIME: 9:48 AM Shahriar Farfan RN Normal [facility] NURSING PROG HNO ID: [id number] Author: LEONARD FRANCIS JR, RN Service: Nursing Author Type: Registered Nurse Type: Nursing Progress Note Filed: 10/30/2023 01:11 Note Text: 2200 PM: PT does not have have a haskins catheter post op. Per report, prior to OR PT was admitted from OSH with a pediatric haskins in place due to difficulties with normal catheter. [id number] Gen surg notified. PT is clean and [...] Gen surg at bedside Leonard PINEDA. Normal [facility] OPERATIVE NOon 10-30-2023 OPERATIVE NO HNO ID: [id number] Author: HERMAN JOHNSON MD Service: Urology Author Type: Resident Type: Operative Report Filed: 10/30/2023 09:08 Note Text: Attestation signed by Oscar Ruiz MD at 10/30/2023 9:20 AM Attestation The primary proceduralist, Wale Thomas, performed the entire procedure with the assistance of Dr. Johnson. I agree with the documentation above. [facility] UROLOGY OPERATIVE REPORT Patient Name: Johnny Devine Patient Log ID: [id number] Surgery Date: 10/30/2023 Incision/Procedure Start Time: 8:03 AM Incision Close/Procedure End Time: 8:17 AM Surgeon(s) and Flow Nurse(s): Surgeon(s) and Role: * Oscar Ruiz MD [...] I agree with the documentation above. Normal [facility] Phosphate SerPl-mCncon 10-29 Phosphate [Mass/Vol] 2.2 mg/dL Low 2.7-4.8 [facility] Comment on above: Order Comment: Speci men Type: BLOOD SPECIMENOrdering Facility: [facility] Address: [address] [place] [address] Performed By: #### 2 4321-2, 61134-0, 2777-1 ####[facility] [id number] [place] [address] [place] XR ABDOMEN 1V [...] likely an ileus. Sigmoid distention appears improved Special Inspector: PSCB Transcribe Date/Time: Oct 30 2023 7:41A Dictated by : RYAN MORRIS MD This examination was interpreted and the report reviewed and electronically signed by: RYAN MORRIS MD on Oct 30 2023 7:43AM EST [id number] Normal [facility] ANES POSTPROC EVALon 024 ANES POSTPROC EVAL HNO ID: [id number] Author: DORIE TENA DO Service: ? Author Type: Anesthesiologist Type: Anesthesia Postprocedure Evaluation Filed: 10/29/2023 14:37 Note Text: POST ANESTHESIA EVALUATION NOTE : 1990 Procedure Summary Date: 10/29/23 Room / Location: [address] [facility] Anesthesia Start: 0948 Anesthesia [...] October 29, 2023 TIME: 2:34 PM CSN: [id number] Normal [facility] ANES PRE-OPon 10-29-2023 ANES PRE-OP HNO ID: [id number] Author: KENZIE MORE APRN.AUTOMOTIVE SERVICES MANAGER Service: ? Author Type: Nurse Video Editing Internship Type: Anesthesia Preprocedure Evaluation Filed: 10/29/2023 09:58 Note Text: ANESTHESIOLOGY DAY OF SURGERY NOTE : 1990 Procedure Information Anesthesia Start Date/Time: 10/29/23947 Procedure: EXPLORATORY LAPAROTOMY (Abdomen) Location: MAIN [facility] Surgeons: Samuel Robin [...] HR - [Held on Transfer] phenol 1 Wink (CHLORASEPTIC) 1 Wink MUCOUS MEMBRANE (TOPICAL MOUTH AND THROAT) q [...] - Sennosid (more content not included)... Normal [facility] BRIEF OP NOTon 10-29-2023 BRIEF OP NOT HNO ID: [id number] Author: PA ALICEA MD Service: General Surgery Author Type: Resident Type: Brief Op Note Filed: 10/29/2023 11:47 Note Text: DDSI BRIEF OP NOTE LOG ID: [id number] SURGERY/PROCEDURE DATE: 10/29/2023 INCISION/PROCEDURE START TIME: 10:25 AM INCISION CLOSE/PROCEDURE END TIME: 11:40 AM SURGEON(S)/PROCEDURAL IST(S) AND FOURDRINIER MACHINE OPERATOR(S): Surgeon(s) and Role: * Samuel Robin MD [...] TIME: 11:45 AM PAGER/CONTACT #: [facility] BRIEF OP NOT HNO ID: [id number] Author: DANTE CHERRY MD Service: General Surgery Author Type: Resident Type: Brief Op Note Filed: 10/29/2023 11:44 Note Text: BRIEF OPERATIVE / PROCEDURE NOTE LOG ID: [id number] SURGERY/PROCEDURE DATE: 10/29/2023 INCISION/PROCEDURE START TIME: 10:25 AM INCISION CLOSE/PROCEDURE END TIME: 11:40 AM SURGEON(S)/PROCEDURAL IST(S) AND FOURDRINIER MACHINE OPERATOR(S): Surgeon(s) and Role: * Samuel Robin MD [...] DATE: October 29, 2023 TIME: 11:36 AM [facility] BRIEF OP NOT HNO ID: [id number] Author: PA ALICEA MD Service: General Surgery Author Type: Resident Type: Brief Op Note Filed: 10/29/2023 08:42 Note Text: Created in Error Normal [facility] Basic metabolic 2000 panelon 10-29-2023 Anion gap [Moles/Vol] 11 mmol/L Normal 9-18 [facility] Comment on above: Order Comment: Speci men Type: BLOOD SPECIMEN Ordering Facility: [facility] Address: [address] [place] [address] Performed By: #### 2 777-1, 89708-5, #### [facility] CLIA [id number] [address] [place] [address] [place] Calcium [Mass/Vol] 7.4 mg/dL Low 8.5-10.2 [facility] Comment on above: Order Comment: Speci men Type: BLOOD SPECIMEN Ordering Facility: [facility] Address: [address] [place] [address] Performed By: #### 2 777-1, , #### [facility] CLIA [id number] [address] [place] [address] [place] Chloride [Moles/Vol] 112 mmol/L High 97-105 [facility] Comment on above: Order Comment: Speci men Type: BLOOD SPECIMEN Ordering Facility: [facility] Address: [address] [place] [address] Performed By: #### 2 777-1, , #### [facility] CLIA [id number] [address] [place] [address] [place] CO2 [Moles/Vol] 21 mmol/L Low 22-30 [facility] Comment on above: Order Comment: Speci men Type: BLOOD SPECIMEN Ordering Facility: [facility] Address: [address] [place] [address] Performed By: #### 2 777-1, 36925-6, #### [facility] CLIA [id number] [address] [place], [place] [address] [place] Creatinine [Mass/Vol] 0.69 mg/dL Low 0.73-1.22 [facility] Comment on above: Order Comment: Speci men Type: BLOOD SPECIMEN Ordering Facility: [facility] Address: [address] [place] [address] Performed By: #### 2 777-1, 58870-3, #### [facility] CLIA [id number] [address] [place] [address] [place] Creatinine and Glomerular filtration rate.predicted panel (S/P/Bld) 127 mL/min/1.73m??? Normal >=60 [facility] Comment on above: Order Comment: Sana zuñiga Type: BLOOD SPECIMEN Ordering Facility: [facility] Address: [address] [place] [address] Result Comment: Lor mated Glomerular Filtration Rate [...] actual GFR. Performed By: #### 2 777-1, 01663-5, 72138-4 #### [facility] CLIA [id number] [address] [place] [address] [place] Glucose [Mass/Vol] 115 mg/dL High 74-99 [facility] Comment on above: Order Comment: Sana zuñiga Type: BLOOD SPECIMEN Ordering Facility: [facility] Address: [address] [place] [address] Result Comment: The [place] [employer] (ADA) provides guidance for cutoff [...] Standards of Medical Care in Diabetes 2016, [place] [employer]. Diabetes Care. 2016.39(Suppl 1). Performed By: #### 2 777-1, 14839-7, #### [facility] CLIA [id number] [address] [place] [address] [place] Potassium [Moles/Vol] 3.8 mmol/L Normal 3.7-5.1 [facility] Comment on above: Order Comment: Speci men Type: BLOOD SPECIMEN Ordering Facility: [facility] Address: [address] [place] [address] Performed By: #### 2 777-1, 86972-0, #### [facility] CLIA [id number] [address] [place] [address] [place] Sodium [Moles/Vol] 144 mmol/L Normal 136-144 [facility] Comment on above: Order Comment: Speci men Type: BLOOD SPECIMEN Ordering Facility: [facility] Address: [address] [place] [address] Performed By: #### 2 777-1, 64797-0, #### [facility] CLIA [id number] [address] [place] [address] [place] Urea nitrogen [Mass/Vol] 13 mg/dL Normal 9-24 [facility] Comment on above: Order Comment: Speci men Type: BLOOD SPECIMEN Ordering Facility: [facility] Address: [address] [place] [address] Performed By: #### 2 777-1, 51699-3, #### [facility] CLIA [id number] [address] [place], [place] [address] [place] CBC W Auto Differential pane l (Bld)on 10-29-2023 Basophils (Bld) [#/Vol] 10*3/uL Normal <0.11 [facility] Comment on above: Order Comment: Speci men Type: BLOOD SPECIMEN Ordering Facility: [facility] Address: [address] [place] [address] Performed By: #### 5 7021-8 #### [facility] CLIA [id number] [address] [place] [address] [place] Basophils/100 WBC (Bld) 0.1 % Normal [facility] Comment on above: Order Comment: Speci men Type: BLOOD SPECIMEN Ordering Facility: [facility] Address: [address] [place] [address] Performed By: #### 5 7021-8 #### [facility] CLIA [id number] [address] [place] [address] [place] Differential cell count method Nom (Bld) Auto Normal [facility] Comment on above: Order Comment: Speci men Type: BLOOD SPECIMEN Ordering Facility: [facility] Address: [address] [place] [address] Performed By: #### 5 7021-8 #### [facility] CLIA [id number] [address] [place] [address] [place] Eosinophils (Bld) [#/Vol] 10*3/uL Normal <0.46 [facility] Comment on above: Order Comment: Speci men Type: BLOOD SPECIMEN Ordering Facility: [facility] Address: [address] [place] [address] Performed By: #### 5 7021-8 #### [facility] CLIA [id number] [address] [place] [address] [place] Eosinophils/100 WBC (Bld) 0.1 % Normal [facility] Comment on above: Order Comment: Speci men Type: BLOOD SPECIMEN Ordering Facility: [facility] Address: [address] [place] [address] Performed By: #### 5 7021-8 #### [facility] CLIA [id number] [address] [place] [address] [place] Erythrocyte distribution width (RBC) [Ratio] 14.6 % Normal 11.5-15.0 [facility] Comment on above: Order Comment: Speci men Type: BLOOD SPECIMEN Ordering Facility: [facility] Address: [address] [place] [address] Performed By: #### 5 7021-8 #### [facility] CLIA [id number] [address] [place] [address] [place] Hematocrit (Bld) [Volume fraction] 33.0 % Low 39.0-51.0 [facility] Comment on above: Order Comment: Speci men Type: BLOOD SPECIMEN Ordering Facility: [facility] Address: [address] [place] [address] Performed By: #### 5 7021-8 #### [facility] CLIA [id number] [address] [place] [address] [place] Hemoglobin (Bld) [Mass/Vol] 10.5 g/dL Low 13.0-17.0 [facility] Comment on above: Order Comment: Speci men Type: BLOOD SPECIMEN Ordering Facility: [facility] Address: [address] [place] [address] Performed By: #### 5 7021-8 #### [facility] CLIA [id number] [address] [place] [address] [place] Immature granulocytes (Bld) [#/Vol] 0.05 10*3/uL Normal <0.10 [facility] Comment on above: Order Comment: Speci men Type: BLOOD SPECIMEN Ordering Facility: [facility] Address: [address] [place] [address] Performed By: #### 5 7021-8 #### [facility] CLIA [id number] [address] [place] [address] [place] Immature granulocytes/100 WBC (Bld) 0.4 % Normal [facility] Comment on above: Order Comment: Speci men Type: BLOOD SPECIMEN Ordering Facility: [facility] Address: [address] [place] [address] Performed By: #### 5 7021-8 #### [facility] CLIA [id number] [address] [place] [address] [place] Lymphocytes (Bld) [#/Vol] 1.25 10*3/uL Normal 1.00-4.00 [facility] Comment on above: Order Comment: Speci men Type: BLOOD SPECIMEN Ordering Facility: [facility] Address: [address] [place] [address] Performed By: #### 5 7021-8 #### [facility] CLIA [id number] [address] [place] [address] [place] Lymphocytes/100 WBC (Bld) 8.9 % Normal [facility] Comment on above: Order Comment: Speci men Type: BLOOD SPECIMEN Ordering Facility: [facility] Address: [address] [place] [address] Performed By: #### 5 7021-8 #### [facility] CLIA [id number] [address] [place] [address] [place] MCH (RBC) [Entitic mass] 26.9 pg Normal 26.0-34.0 [facility] Comment on above: Order Comment: Speci men Type: BLOOD SPECIMEN Ordering Facility: [facility] Address: [address] [place] [address] Performed By: #### 5 7021-8 #### [facility] CLIA [id number] [address] [place] [address] [place] MCHC (RBC) [Mass/Vol] 31.8 g/dL Normal 30.5-36.0 [facility] Comment on above: Order Comment: Speci men Type: BLOOD SPECIMEN Ordering Facility: [facility] Address: [address] [place] [address] Performed By: #### 5 7021-8 #### [facility] CLIA [id number] [address] [place] [address] [place] MCV (RBC) [Entitic vol] 84.6 fL Normal 80.0-100.0 [facility] Comment on above: Order Comment: Speci men Type: BLOOD SPECIMEN Ordering Facility: [facility] Address: [address] [place] [address] Performed By: #### 5 7021-8 #### [facility] CLIA [id number] [address] [place] [address] [place] Monocytes (Bld) [#/Vol] 1.50 10*3/uL High <0.87 [facility] Comment on above: Order Comment: Speci men Type: BLOOD SPECIMEN Ordering Facility: [facility] Address: [address] [place] [address] Performed By: #### 5 7021-8 #### [facility] CLIA [id number] [address] [place] [address] [place] Monocytes/100 WBC (Bld) 10.6 % Normal [facility] Comment on above: Order Comment: Speci men Type: BLOOD SPECIMEN Ordering Facility: [facility] Address: [address] [place] [address] Performed By: #### 5 7021-8 #### [facility] CLIA [id number] [address] [place] [address] [place] Neutrophils (Bld) [#/Vol] 11.26 10*3/uL High 1.45-7.50 [facility] Comment on above: Order Comment: Speci men Type: BLOOD SPECIMEN Ordering Facility: [facility] Address: [address] [place] [address] Performed By: #### 5 7021-8 #### [facility] CLIA [id number] [address] [place] [address] [place] Neutrophils/100 WBC (Bld) 79.9 % Normal [facility] Comment on above: Order Comment: Speci men Type: BLOOD SPECIMEN Ordering Facility: [facility] Address: [address] [place] [address] Performed By: #### 5 7021-8 #### [facility] CLIA [id number] [address] [place] [address] [place] Nucleated RBC (Bld) [#/Vol] 10*3/uL Normal <0.01 [facility] Comment on above: Order Comment: Speci men Type: BLOOD SPECIMEN Ordering Facility: [facility] Address: [address] [place] [address] Performed By: #### 5 7021-8 #### [facility] CLIA [id number] [address] [place] [address] [place] Nucleated RBC/100 WBC (Bld) [Ratio] 0.0 /100 WBC Normal [facility] Comment on above: Order Comment: Speci men Type: BLOOD SPECIMEN Ordering Facility: [facility] Address: [address] [place] [address] Performed By: #### 5 7021-8 #### [facility] CLIA [id number] [address] [place] [address] [place] Platelet mean volume (Bld) [Entitic vol] 9.4 fL Normal 9.0-12.7 [facility] Comment on above: Order Comment: Speci men Type: BLOOD SPECIMEN Ordering Facility: [facility] Address: [address] [place] [address] Performed By: #### 5 7021-8 #### [facility] CLIA [id number] [address] [place] [address] [place] Platelets (Bld) [#/Vol] 151 10*3/uL Normal 150-400 [facility] Comment on above: Order Comment: Speci men Type: BLOOD SPECIMEN Ordering Facility: [facility] Address: [address] [place] [address] Performed By: #### 5 7021-8 #### [facility] CLIA [id number] [address] [place] [address] [place] RBC (Bld) [#/Vol] 3.90 10*6/uL Low 4.20-6.00 [facility] Comment on above: Order Comment: Speci men Type: BLOOD SPECIMEN Ordering Facility: [facility] Address: [address] [place] [address] Performed By: #### 5 7021-8 #### [facility] CLIA [id number] [address] [place] [address] [place] WBC (Bld) [#/Vol] 14.09 10*3/uL High 3.70-11.00 [facility] Comment on above: Order Comment: Speci men Type: BLOOD SPECIMEN Ordering Facility: [facility] Address: [address] [place] [address] Performed By: #### 5 7021-8 #### [facility] CLIA [id number] [address] [place] [address] [place] CONFIRM BLOOD TYPEon 024 ABO A Normal [facility] Comment on above: Order Comment: Speci men Type: BLOOD SPECIMENOrdering Facility: [facility] Address: [address] [place] [address] Performed By: #### C ONABO ####[facility] BLOOD BANKCLIA [id number] [place] [address] [place] Rh Nom (Bld) Positive Normal [facility] Comment on above: Order Comment: Speci men Type: BLOOD SPECIMENOrdering Facility: [facility] Address: [address] [place] [address] Performed By: #### C ONABO ####[facility] BLOOD BANKCLIA [id number] [place] [address] [place] Magnesium SerPl-mCncon 10-28 Magnesium [Mass/Vol] 1.8 mg/dL Normal 1.7-2.3 [facility] Comment on above: Order Comment: Speci men Type: BLOOD SPECIMEN Ordering Facility: [facility] Address: [address] [place] [address] Performed By: #### 2 777-1, 83434-4, 07724-6 #### [facility] CLIA [id number] [address] [place] [address] [place] [address] [place] NURSING PROGon 10-29-2023 NURSING PROG HNO ID: [id number] Author: BAILEY HUTSON RN Service: Nursing Author Type: Registered Nurse Type: Nursing Progress Note Filed: 10/29/2023 18:29 Note Text: 1827 [place] [phone] to notify of patient's current temp of 100.2 F. Will continue to monitor. Normal [facility] NURSING PROG HNO ID: [id number] Author: BAILEY HUTSON RN Service: Nursing Author Type: Registered Nurse Type: Nursing Progress Note Filed: 10/29/2023 17:35 Note Text: Nursing Progress: Topic: RESTRAINT NON-VIOLENT PATIENT NAME: Johnny Devine Patient Location: [place] [address] Room: [place] [address] The patient demonstrates Attempting to Remove Medical [...] the patient's safety: Bed in Low/Locked Position, Plastic Parts Fabricator/Sitter, Diversion Activities, IV/Feeding Bag/Pump Out of Vision, [...] TIME: 5:07 PM Bailey Hutson RN Normal [facility] NURSING PROG HNO ID: [id number] Author: BAILEY HUTSON RN Service: Nursing Author Type: Registered Nurse Type: Nursing Progress Note Filed: 10/29/2023 15:25 Note Text: 1518 [place] [phone] to request indwelling Haskins for incontinence and skin breakdown management. Will continue to monitor. 1523 Patient repeatedly attempt to remove NG tube despite the sitter at the bedside. Primary team notified with request for order for bilateral soft wrist restraint. Will continue to monitor. Normal [facility] NURSING PROG HNO ID: [id number] Author: OLIMPIA MAGALLON RN Service: Nursing Author Type: Registered Nurse Type: Nursing Progress Note Filed: 10/29/2023 13:37 Note Text: Pt resting quietly with patient hazardous materials waste technician at bedside. Several attempts to reach for NG tube, patient relaxes and moves hand away from from drain if you say hand down Per brother John Paul. This has been effective. Pt resting quietly, no facial grimacing, posturing, or guarding. Vss, resp rate even and non labored. Pt has returned to presurgical baseline and is being transferred back to [facility] in stable condition. Opening eyes when name is called. Brother Delbert (guardian) updated prior to patient transfer. Normal [facility] OPERATIVE NOon 10-29-2023 OPERATIVE NO HNO ID: [id number] Author: SAMUEL ROBIN MD Service: General Surgery Author Type: Physician Type: Operative Report Filed: 10/29/2023 13:52 Note Text: OPERATIVE/PROCEDURE REPORT LOG ID: [id number] SURGERY/PROCEDURE DATE: 10/29/2023 INCISION/PROCEDURE START TIME: 10:25 AM INCISION CLOSE/PROCEDURE END TIME: 11:40 AM SURGEON(S)/PROCEDURAL IST(S) AND FOURDRINIER MACHINE OPERATOR(S): Surgeon(s) and Role: * Samuel Robin MD [...] for the entirety of the case. Normal [facility] Phosphate SerPl-mCncon 10-28 Phosphate [Mass/Vol] 2.3 mg/dL Low 2.7-4.8 [facility] Comment on above: Order Comment: Speci men Type: BLOOD SPECIMEN Ordering Facility: [facility] Address: [address] [place] [address] Performed By: #### 2 777-1, 18161-6, #### [facility] CLIA [id number] [address] [place] [address] [place] SEPSIS LACTATEon 10-29-2023 Lactate [Moles/Vol] 1.2 mmol/L Normal <=2.0 [facility] Comment on above: Order Comment: Speci men Type: BLOOD SPECIMENOrdering Facility: [facility] Address: [address] [place] [address] Performed By: #### S LACT ####[facility] [id number] [place] [address] [place] Order Comment: Speci men Type: BLOOD SPECIMEN Ordering Facility: [facility] Address: [address] [place] [address] Performed By: #### 2 777-1, 42528-6, #### [facility] CLIA [id number] [address] [place] [address] [place] Urinalysis complete panel (U )on 10-29-2023 Bacteria LM.HPF (Urine sed) [#/Area] Negative Normal Negative [facility] Comment on above: Order Comment: Speci men Type: BLOOD SPECIMEN Ordering Facility: [facility] Address: [address] [place] [address] Performed By: #### 2 777-1, 97116-9, #### [facility] CLIA [id number] [address] [place] [address] [place] Bilirubin Ql (U) Negative Normal Negative [facility] Comment on above: Order Comment: Speci men Type: BLOOD SPECIMEN Ordering Facility: [facility] Address: [address] [place] [address] Performed By: #### 2 777-1, , #### [facility] CLIA [id number] [address] [place] [address] [place] Clarity (Unsp spec) Clear Normal Clear [facility] Comment on above: Order Comment: Speci men Type: BLOOD SPECIMEN Ordering Facility: [facility] Address: [address] [place] [address] Performed By: #### 2 777-1, , #### [facility] CLIA [id number] [address] [place] [address] [place] Color (U) Yellow Normal Yellow [facility] Comment on above: Order Comment: Speci men Type: BLOOD SPECIMEN Ordering Facility: [facility] Address: [address] [place] [address] Performed By: #### 2 777-1, 32851-0, #### [facility] CLIA [id number] [address] [place] [address] [place] Epithelial cells LM.HPF (Urine sed) [#/Area] None Seen Normal [facility] Comment on above: Order Comment: Speci men Type: BLOOD SPECIMEN Ordering Facility: [facility] Address: [address] [place] [address] Performed By: #### 2 777-1, 87945-7, #### [facility] CLIA [id number] [address] [place] [address] [place] Glucose Test strip (U) [Mass/Vol] Negative Normal Negative [facility] Comment on above: Order Comment: Speci men Type: BLOOD SPECIMEN Ordering Facility: [facility] Address: [address] [place] [address] Performed By: #### 2 777-1, , #### [facility] CLIA [id number] [address] [place] [address] [place] Hemoglobin Ql (U) 2+ Abnormal Negative [facility] Comment on above: Order Comment: Speci men Type: BLOOD SPECIMEN Ordering Facility: [facility] Address: [address] [place] [address] Performed By: #### 2 777-1, , #### [facility] CLIA [id number] [address] [place] [address] [place] Hyaline casts (Urine sed) [#/Area] 0 /[LPF] Normal 0 /LPF [facility] Comment on above: Order Comment: Speci men Type: BLOOD SPECIMEN Ordering Facility: [facility] Address: [address] [place] [address] Performed By: #### 2 777-1, , #### [facility] CLIA [id number] [address] [place] [address] [place] Ketones Ql (U) Negative Normal Negative [facility] Comment on above: Order Comment: Speci men Type: BLOOD SPECIMEN Ordering Facility: [facility] Address: [address] [place] [address] Performed By: #### 2 777-1, 74282-9, #### [facility] CLIA [id number] [address] [place] [address] [place] Leukocyte esterase Test strip Ql (U) Negative Normal Negative [facility] Comment on above: Order Comment: Speci men Type: BLOOD SPECIMEN Ordering Facility: [facility] Address: [address] [place] [address] Performed By: #### 2 777-1, 97957-7, #### [facility] CLIA [id number] [address] [place] [address] [place] Nitrite Ql (U) Negative Normal Negative [facility] Comment on above: Order Comment: Speci men Type: BLOOD SPECIMEN Ordering Facility: [facility] Address: [address] [place] [address] Performed By: #### 2 777-1, 61218-2, #### [facility] CLIA [id number] [address] [place] [address] [place] pH (U) 6.5 [pH] Normal <8.5 [facility] Comment on above: Order Comment: Speci men Type: BLOOD SPECIMEN Ordering Facility: [facility] Address: [address] [place] [address] Performed By: #### 2 777-1, 22349-3, #### [facility] CLIA [id number] [address] [place] [address] [place] Protein (U) [Mass/Vol] Trace Abnormal Negative [facility] Comment on above: Order Comment: Speci men Type: BLOOD SPECIMEN Ordering Facility: [facility] Address: [address] [place] [address] Performed By: #### 2 777-1, 23615-7, #### [facility] CLIA [id number] [address] [place] [address] [place] RBC LM.HPF (Urine sed) [#/Area] 6-10 /HPF Abnormal 0-2 /HPF [facility] Comment on above: Order Comment: Speci men Type: BLOOD SPECIMEN Ordering Facility: [facility] Address: [address] [place] [address] Performed By: #### 2 777-1, 38570-1, #### [facility] CLIA [id number] [address] [place] [address] [place] Specific gravity (U) [Rel density] 1.021 Normal 1.005-1.030 [facility] Comment on above: Order Comment: Speci men Type: BLOOD SPECIMEN Ordering Facility: [facility] Address: [address] [place] [address] Performed By: #### 2 777-1, 90615-3, #### [facility] CLIA [id number] [address] [place] [address] [place] Urobilinogen Ql (U) 0.2 EU/dL Normal 0.2-1.0 EU/dL [facility] Comment on above: Order Comment: Speci men Type: BLOOD SPECIMEN Ordering Facility: [facility] Address: [address] [place] [address] Performed By: #### 2 777-1, , #### [facility] CLIA [id number] [address] [place] [address] [place] WBC LM.HPF (Urine sed) [#/Area] 0-5 /HPF Normal 0-5 /HPF [facility] Comment on above: Order Comment: Speci men Type: BLOOD SPECIMEN Ordering Facility: [facility] Address: [address] [place] [address] Performed By: #### 2 777-1, 80936-2, #### [facility] CLIA [id number] [address] [place] [address] [place] XR CHEST 1V [...] are unremarkable. Other: . IMPRESSION: See result. Special Inspector: SUSI Transcribe Date/Time: Oct 29 2023 12:20A Dictated by : SHEA WORTHY MD This examination was interpreted and the report reviewed and electronically signed by: SHEA WORTHY MD on Oct 29 2023 12:22AM EST [id number] Normal [facility] aPTT PPPon 10-29-2023 aPTT Coag (PPP) [Time] 26.3 s Normal 23.0-32.4 [facility] Comment on above: Order Comment: Speci men Type: BLOOD SPECIMEN Ordering Facility: [facility] Address: [address] [place] [address] Performed By: #### 2 777-1, 28553-4, #### [facility] CLIA [id number] [address] [place] [address] [place] Basic metabolic 2000 panelon 10-28-2023 Anion gap [Moles/Vol] 12 mmol/L Normal 9-18 [facility] Comment on above: Order Comment: Speci men Type: BLOOD SPECIMEN Ordering Facility: [facility] Address: [address] [place] [address] Performed By: #### 2 777-1, 96002-6, #### [facility] CLIA [id number] [address] [place] [address] [place] Calcium [Mass/Vol] 7.8 mg/dL Low 8.5-10.2 [facility] Comment on above: Order Comment: Speci men Type: BLOOD SPECIMEN Ordering Facility: [facility] Address: [address] [place] [address] Performed By: #### 2 777-1, 87699-8, #### [facility] CLIA [id number] [address] [place] [address] [place] Chloride [Moles/Vol] 110 mmol/L High 97-105 [facility] Comment on above: Order Comment: Speci men Type: BLOOD SPECIMEN Ordering Facility: [facility] Address: [address] [place] [address] Performed By: #### 2 777-1, 70616-2, #### [facility] CLIA [id number] [address] [place] [address] [place] CO2 [Moles/Vol] 15 mmol/L Low 22-30 [facility] Comment on above: Order Comment: Speci men Type: BLOOD SPECIMEN Ordering Facility: [facility] Address: [address] [place] [address] Performed By: #### 2 777-1, 01460-1, #### [facility] CLIA [id number] [address] [place] [address] [place] Creatinine [Mass/Vol] 0.72 mg/dL Low 0.73-1.22 [facility] Comment on above: Order Comment: Speci men Type: BLOOD SPECIMEN Ordering Facility: [facility] Address: [address] [place] [address] Performed By: #### 2 777-1, 35435-4, #### [facility] CLIA [id number] [address] [place] [address] [place] [facility] Creatinine and Glomerular filtration rate.predicted panel (S/P/Bld) 125 mL/min/1.73m??? Normal >=60 [facility] Comment on above: Order Comment: Sana zuñiga Type: BLOOD SPECIMEN Ordering Facility: [facility] Address: [address] [place] [address] Result Comment: Lor mated Glomerular Filtration Rate [...] actual GFR. Performed By: #### 2 777-1, 47408-4, #### [facility] CLIA [id number] [address] [place] [address] [place] Glucose [Mass/Vol] 116 mg/dL High 74-99 [facility] Comment on above: Order Comment: Sana zuñiga Type: BLOOD SPECIMEN Ordering Facility: [facility] Address: [address] [place] [address] Result Comment: The [place] [employer] (ADA) provides guidance for cutoff [...] Standards of Medical Care in Diabetes 2016, [place] [employer]. Diabetes Care. 2016.39(Suppl 1). Performed By: #### 2 777-1, 19467-1, #### [facility] CLIA [id number] [address] [place] [address] [place] Potassium [Moles/Vol] 3.9 mmol/L Normal 3.7-5.1 [facility] Comment on above: Order Comment: Speci men Type: BLOOD SPECIMEN Ordering Facility: [facility] Address: [address] [place] [address] Performed By: #### 2 777-1, 04704-2, #### [facility] CLIA [id number] [address] [place] [address] [place] Sodium [Moles/Vol] 137 mmol/L Normal 136-144 [facility] Comment on above: Order Comment: Speci men Type: BLOOD SPECIMEN Ordering Facility: [facility] Address: [address] [place] [address] Performed By: #### 2 777-1, 40148-6, #### [facility] CLIA [id number] [address] [place] [address] [place] Urea nitrogen [Mass/Vol] 17 mg/dL Normal 9-24 [facility] Comment on above: Order Comment: Speci men Type: BLOOD SPECIMEN Ordering Facility: [facility] Address: [address] [place] [address] Performed By: #### 2 777-1, 11110-4, #### [facility] CLIA [id number] [address] [place] [address] [place] CBC W Auto Differential pane l (Bld)on 10-28-2023 Basophils (Bld) [#/Vol] 10*3/uL Normal <0.11 [facility] Comment on above: Order Comment: Speci men Type: BLOOD SPECIMEN Ordering Facility: [facility] Address: [address] [place] [address] Performed By: #### 2 777-1, 90962-4, #### [facility] CLIA [id number] [address] [place] [address] [place] Basophils/100 WBC (Bld) 0.1 % Normal [facility] Comment on above: Order Comment: Speci men Type: BLOOD SPECIMEN Ordering Facility: [facility] Address: [address] [place] [address] Performed By: #### 2 777-1, 56553-0, #### [facility] CLIA [id number] [address] [place] [address] [place] Differential cell count method Nom (Bld) Auto Normal [facility] Comment on above: Order Comment: Speci men Type: BLOOD SPECIMEN Ordering Facility: [facility] Address: [address] [place] [address] Performed By: #### 2 777-1, , #### [facility] CLIA [id number] [address] [place] [address] [place] Eosinophils (Bld) [#/Vol] 10*3/uL Normal <0.46 [facility] Comment on above: Order Comment: Speci men Type: BLOOD SPECIMEN Ordering Facility: [facility] Address: [address] [place] [address] Performed By: #### 2 777-1, , #### [facility] CLIA [id number] [address] [place] [address] [place] Eosinophils/100 WBC (Bld) 0.0 % Normal [facility] Comment on above: Order Comment: Speci men Type: BLOOD SPECIMEN Ordering Facility: [facility] Address: [address] [place] [address] Performed By: #### 2 777-1, , #### [facility] CLIA [id number] [address] [place] [address] [place] Erythrocyte distribution width (RBC) [Ratio] 14.4 % Normal 11.5-15.0 [facility] Comment on above: Order Comment: Speci men Type: BLOOD SPECIMEN Ordering Facility: [facility] Address: [address] [place] [address] Performed By: #### 2 777-1, 91603-2, #### [facility] CLIA [id number] [address] [place], [place] [address] [place] Hematocrit (Bld) [Volume fraction] 38.3 % Low 39.0-51.0 [facility] Comment on above: Order Comment: Speci men Type: BLOOD SPECIMEN Ordering Facility: [facility] Address: [address] [place] [address] Performed By: #### 2 777-1, 21923-4, #### [facility] CLIA [id number] [address] [place] [address] [place] Hemoglobin (Bld) [Mass/Vol] 12.0 g/dL Low 13.0-17.0 [facility] Comment on above: Order Comment: Speci men Type: BLOOD SPECIMEN Ordering Facility: [facility] Address: [address] [place] [address] Performed By: #### 2 777-1, 18832-2, #### [facility] CLIA [id number] [address] [place] [address] [place] Immature granulocytes (Bld) [#/Vol] 0.08 10*3/uL Normal <0.10 [facility] Comment on above: Order Comment: Speci men Type: BLOOD SPECIMEN Ordering Facility: [facility] Address: [address] [place], [place] [address] Performed By: #### 2 777-1, 67987-0, #### [facility] CLIA [id number] [address] [place] [address] [place] Immature granulocytes/100 WBC (Bld) 0.6 % Normal [facility] Comment on above: Order Comment: Speci men Type: BLOOD SPECIMEN Ordering Facility: [facility] Address: [address] [place] [address] Performed By: #### 2 777-1, 17884-7, #### [facility] CLIA [id number] [address] [place] [address] [place] Lymphocytes (Bld) [#/Vol] 1.19 10*3/uL Normal 1.00-4.00 [facility] Comment on above: Order Comment: Speci men Type: BLOOD SPECIMEN Ordering Facility: [facility] Address: [address] [place] [address] Performed By: #### 2 777-1, 30515-1, #### [facility] CLIA [id number] [address] [place] [address] [place] Lymphocytes/100 WBC (Bld) 8.2 % Normal [facility] Comment on above: Order Comment: Speci men Type: BLOOD SPECIMEN Ordering Facility: [facility] Address: [address] [place] [address] Performed By: #### 2 777-1, 41897-7, #### [facility] CLIA [id number] [address] [place] [address] [place] MCH (RBC) [Entitic mass] 26.5 pg Normal 26.0-34.0 [facility] Comment on above: Order Comment: Speci men Type: BLOOD SPECIMEN Ordering Facility: [facility] Address: [address] [place] [address] Performed By: #### 2 777-1, 00688-4, #### [facility] CLIA [id number] [address] [place] [address] [place] MCHC (RBC) [Mass/Vol] 31.3 g/dL Normal 30.5-36.0 [facility] Comment on above: Order Comment: Speci men Type: BLOOD SPECIMEN Ordering Facility: [facility] Address: [address] [place] [address] Performed By: #### 2 777-1, 84597-2, #### [facility] CLIA [id number] [address] [place] [address] [place] MCV (RBC) [Entitic vol] 84.5 fL Normal 80.0-100.0 [facility] Comment on above: Order Comment: Speci men Type: BLOOD SPECIMEN Ordering Facility: [facility] Address: [address] [place] [address] Performed By: #### 2 777-1, 84420-2, #### [facility] CLIA [id number] [address] [place] [address] [place] Monocytes (Bld) [#/Vol] 1.48 10*3/uL High <0.87 [facility] Comment on above: Order Comment: Speci men Type: BLOOD SPECIMEN Ordering Facility: [facility] Address: [address] [place] [address] Performed By: #### 2 777-1, 75006-8, #### [facility] CLIA [id number] [address] [place] [address] [place] Monocytes/100 WBC (Bld) 10.2 % Normal [facility] Comment on above: Order Comment: Speci men Type: BLOOD SPECIMEN Ordering Facility: [facility] Address: [address] [place] [address] Performed By: #### 2 777-1, 39863-0, #### [facility] CLIA [id number] [address] [place] [address] [place] Neutrophils (Bld) [#/Vol] 11.69 10*3/uL High 1.45-7.50 [facility] Comment on above: Order Comment: Speci men Type: BLOOD SPECIMEN Ordering Facility: [facility] Address: [address] [place], [place] [address] Performed By: #### 2 777-1, 22172-8, #### [facility] CLIA [id number] [address] [place] [address] [place] Neutrophils/100 WBC (Bld) 80.9 % Normal [facility] Comment on above: Order Comment: Speci men Type: BLOOD SPECIMEN Ordering Facility: [facility] Address: [address] [place] [address] Performed By: #### 2 777-1, 99018-8, #### [facility] CLIA [id number] [address] [place] [address] [place] Nucleated RBC (Bld) [#/Vol] 10*3/uL Normal <0.01 [facility] Comment on above: Order Comment: Speci men Type: BLOOD SPECIMEN Ordering Facility: [facility] Address: [address] [place] [address] Performed By: #### 2 777-1, 81836-6, #### [facility] CLIA [id number] [address] [place] [address] [place] Nucleated RBC/100 WBC (Bld) [Ratio] 0.0 /100 WBC Normal [facility] Comment on above: Order Comment: Speci men Type: BLOOD SPECIMEN Ordering Facility: [facility] Address: [address] [place] [address] Performed By: #### 2 777-1, 55279-6, #### [facility] CLIA [id number] [address] [place] [address] [place] Platelet mean volume (Bld) [Entitic vol] 9.3 fL Normal 9.0-12.7 [facility] Comment on above: Order Comment: Speci men Type: BLOOD SPECIMEN Ordering Facility: [facility] Address: [address] [place] [address] Performed By: #### 2 777-1, 79165-6, #### [facility] CLIA [id number] [address] [place] [address] [place] Platelets (Bld) [#/Vol] 180 10*3/uL Normal 150-400 [facility] Comment on above: Order Comment: Speci men Type: BLOOD SPECIMEN Ordering Facility: [facility] Address: [address] [place] [address] Performed By: #### 2 777-1, 47538-8, #### [facility] CLIA [id number] [address] [place] [address] [place] RBC (Bld) [#/Vol] 4.53 10*6/uL Normal 4.20-6.00 [facility] Comment on above: Order Comment: Speci men Type: BLOOD SPECIMEN Ordering Facility: [facility] Address: [address] [place] [address] Performed By: #### 2 777-1, 51991-6, #### [facility] CLIA [id number] [address] [place] [address] [place] WBC (Bld) [#/Vol] 14.46 10*3/uL High 3.70-11.00 [facility] Comment on above: Order Comment: Speci men Type: BLOOD SPECIMEN Ordering Facility: [facility] Address: [address] [place] [address] Performed By: #### 2 777-1, 53007-4, #### [facility] CLIA [id number] [address] [place] [address] [place] HISTORY PHYSICALon HISTORY PHYSICAL HNO ID: [id number] Author: SAMUEL ROBIN MD Service: General Surgery [...] No a (more content not included)... Normal [facility] Magnesium SerPl-mCncon 10-27 Magnesium [Mass/Vol] 1.8 mg/dL Normal 1.7-2.3 [facility] Comment on above: Order Comment: Sana zuñiga Type: BLOOD SPECIMEN Ordering Facility: [facility] Address: [address] [place] [address] Performed By: #### 2 777-1, 56678-2, 72540-7 #### [facility] CLIA [id number] [address] [place] [address] [place] PT panel Coag (PPP)on 2023 INR Coag (PPP) [Relative time] 1.2 {INR} Normal 0.9-1.3 [facility] Comment on above: Order Comment: Sana zuñiga Type: BLOOD SPECIMEN Ordering Facility: [facility] Address: [address] [place] [address] Result Comment: Winnie min K Antagonist (VKA) Therapeutic Range: INR 2 to 3 (Target INR of 2.5) Note: For patients treated with VKA drugs, such as warfarin, the [place] [employer] 2012 Guideline recommends [...] Chest 2012, 141:7S-47S Jonny RA, et al. [facility] 2017, 70: 252-289 Performed By: #### 2 777-1, 41763-8, #### [facility] CLIA [id number] [address] [place] [address] [place] PT Coag (PPP) [Time] 12.3 s Normal 9.7-13.0 [facility] Comment on above: Order Comment: Speci men Type: BLOOD SPECIMEN Ordering Facility: [facility] Address: [address] [place] [address] Performed By: #### 2 777-1, 91686-4, #### [facility] CLIA [id number] [address] [place] [address] [place] Phosphate SerPl-mCncon 10-27 Phosphate [Mass/Vol] 3.2 mg/dL Normal 2.7-4.8 [facility] Comment on above: Order Comment: Akbari men Type: BLOOD SPECIMEN Ordering Facility: [facility] Address: [address] [place] [address] Performed By: #### 2 777-1, 42763-0, #### [facility] CLIA [id number] [address] [place] [address] [place] SEPSIS LACTATEon 10-28-2023 Lactate [Moles/Vol] 2.0 mmol/L Normal <=2.0 [facility] Comment on above: Order Comment: Speci men Type: BLOOD SPECIMENOrdering Facility: [facility] Address: [address] [place] [address] Performed By: #### S LACT ####[facility] [id number] [place] [address] [place] TYPE + SCREENon 10-28-2023 ABO A Normal [facility] Comment on above: Order Comment: Speci men Type: BLOOD SPECIMEN Ordering Facility: [facility] Address: [address] [place] [address] Performed By: #### 2 4321-2, , 2776-08 #### [facility] CLIA [id number] [address] [place] [address] [place] HISTORICAL AB SCR STATUS Negative Normal [facility] Comment on above: Order Comment: Speci men Type: BLOOD SPECIMEN Ordering Facility: [facility] Address: [address] [place] [address] Performed By: #### 2 4321-2, , 2776-08 #### [facility] CLIA [id number] [address] [place] [address] [place] Rh Nom (Bld) Positive Normal [facility] Comment on above: Order Comment: Speci men Type: BLOOD SPECIMEN Ordering Facility: [facility] Address: [address] [place] [address] Performed By: #### 2 4321-2, , 2776-08 #### [facility] CLIA [id number] [address] [place] [address] [place] TYPE AND SCREEN EXPIRATION 10/31/2023 23:59 Normal [facility] Comment on above: Order Comment: Speci men Type: BLOOD SPECIMEN Ordering Facility: [facility] Address: [address] [place] [address] Performed By: #### 2 4321-2, , 1 #### [facility] CLIA [id number] [address] [place], [place] [address] [address] [place] XR ABDOMEN 1V [...] right lower quadrant on the outside CT). Special Inspector: PSCB Transcribe Date/Time: Oct 28 2023 5:30P Dictated by : WALTER BURGER MD This examination was interpreted and the report reviewed and electronically signed by: WALTER BURGER MD on Oct 28 2023 5:47PM EST [id number] Normal [facility] Basic metabolic 2000 panelOr dered By: [...] Inclusion of Race in Diagnosing Kidney Disease. [place] Journal of Kidney Diseases 2021;79(2):268-88.e1. 2. N Engl J Med 2020 Vol. 385 Issue 19 Pages 3172-0763 Glucose [Mass/Vol] 84 mg/dL 74 - 109 [...] (Bld) 36.8 % 24.0 - 44.0 % [facility] MCH (RBC) [Entitic mass] 27.4 pg 26.0 - 34.0 pg [facility] MCHC (RBC) [Mass/Vol] 32.8 g/dL 32.0 - 35.9 g/dL [facility] MCV (RBC) [Entitic vol] 84 fL 80 - 100 fL [facility] Monocytes (Bld) [#/Vol] 0.80 10*3/uL 0.20 - 1.00 K/uL [facility] Monocytes/100 WBC (Bld) 8.9 % 2.0 - 11.0 % [facility] Neutrophils (Bld) [#/Vol] 4.40 10*3/uL 1.50 - 8.00 K/uL [facility] Neutrophils/100 WBC (Bld) 50.6 % 31.0 - 76.0 % [facility] Nucleated RBC (Bld) [#/Vol] 0.01 10*3/uL [facility] Nucleated RBC/100 WBC (Bld) [Ratio] 0.1 % [facility] Platelet mean volume (Bld) [Entitic vol] 9.1 fL 7.5 - 11.2 fL [facility] Platelets (Bld) [#/Vol] [facility] Comment on above: Platelet cannot be q uantified due to the presence of platelet clumps. Platelet estimate appears normal. RBC (Bld) [#/Vol] 4.59 10*6/uL [facility] WBC (Bld) [#/Vol] 8.6 10*3/uL 4.5 - 11.5 K/uL [facility] CT Head WO contrastOrdered B y: Daivd Kay on 07-16-2023 CT DLP 1126.71 (mGy.cm) [facility] Work Phone: CT Series HEAD W/O,HEAD W/O [facility] Work Phone: CTDI VOL 0.34 (mGy),47.31 (mGy) [facility] Work Phone: PHANTOM TYPE IEC Head Dosimetry Phantom,IEC Head Dosimetry Phantom [facility] Work Phone: [facility] Work Phone: CT Head WO contraston 2022 [...] in the left caudate nucleus. MACRO: None [facility] Radiology Study observation (narrative) [facility] MAGNESIUMon 07-16-2023 Interpretation and review of laboratory results Normal [facility] Magnesium [Mass/Vol] 2.1 mg/dL 1.6 - 2 .8 mg/dL [facility] Lithiumon 07-06-2023 [place] [Moles/Vol] 0.9 mmol/L Invalid Interpretation Code 0.5-1.2 [facility] Comment on above: Result Comment: A co ncentration of 0.5-0.8 mmol/L is advised for long-term use; concentrations of up to 1.2 mmol/L may be necessary during acute treatment. Detection Limit = 0.1 <0.1 indicates None Detected Performed at: [address] [id number] PhD Agata Narayan Performed By: #### 2 955163, 0039389, 1328223, 4909779, 123691079, 6457762, 1242454, 14420072, 5963165 ####[facility] [address] [place] [address] CBC w/Indiceson 07-04-2023 Erythrocyte distribution width (RBC) [Ratio] 13.8 % Normal 10.9-14.2 [facility] Comment on above: Performed By: #### 2 840517, 4175086, 4307107, 5645107, 209949429, 2173604, 9891149, 24160424, 1170219 #### [facility] [address] [place] [address] Hematocrit (Bld) [Volume fraction] 38.1 % Normal 37.7-49.0 [facility] Comment on above: Performed By: #### 2 990901, 3251413, 8087481, 1336105, 788051574, 8939783, 5667308, 24807187, 8387242 #### [facility] [address] [place] [address] Hemoglobin (Bld) [Mass/Vol] 12.7 g/dL Low 13.5-17.5 [facility] Comment on above: Performed By: #### 2 591331, 4687149, 9839985, 2861158, 878897279, 1880578, 4816425, 93069068, 0286010 #### [facility] [address] [place] [address] MCH (RBC) [Entitic mass] 27.6 pg Normal 27.0-34.0 [facility] Comment on above: Performed By: #### 2 923825, 6302835, 0654721, 8450987, 264612393, 9041559, 3530865, 78141863, 3047876 #### [facility] [address] [place] [address] MCHC (RBC) [Mass/Vol] 33.3 g/dL Normal 31.4-36.0 [facility] Comment on above: Performed By: #### 2 206750, 6752815, 4560172, 0655486, 318649147, 5357015, 3915497, 06475294, 7245319 #### [facility] [address] [place] [address] MCV (RBC) [Entitic vol] 83.0 fL Normal 80.0-100.0 [facility] Comment on above: Performed By: #### 2 899637, 0195686, 4369229, 4247085, 745276767, 4634892, 7578099, 38677382, 5069743 #### [facility] [address] [place] [address] Platelet mean volume (Bld) [Entitic vol] 8.5 fL Normal 6.4-10.8 [facility] Comment on above: Performed By: #### 2 704418, 6984427, 2162177, 9459340, 089236056, 7723480, 8512399, 34397940, 8987868 #### [facility] [address] [place] [address] Platelets (Bld) [#/Vol] 175.0 E9/L Normal 150.0-500.0 [facility] Comment on above: Performed By: #### 2 380688, 3962483, 7311476, 9168077, 637410338, 7680476, 2165157, 10323778, 3211043 #### [facility] [address] [place] [address] RBC (Bld) [#/Vol] 4.6 E12/L Normal 4.3-5.9 [facility] Comment on above: Performed By: #### 2 757378, 3531085, 6528538, 9160810, 326467529, 9551085, 6586774, 11143389, 5706776 #### [facility] [address] [place] [address] WBC corrected for nucl RBC Auto (Bld) [#/Vol] 5.9 E9/L Normal 4.0-11.0 [facility] Comment on above: Performed By: #### 2 862548, 2026478, 4943001, 3767009, 592018877, 2424300, 6083462, 81395687, 5772002 #### [facility] [address] [place] [address] CHEMISTRYOrdered By: SYSTEM SYSTEM on 07-04-2023 25-hydroxyvitamin D3 [Mass/Vol] 33.7 ng/mL Normal 30.0 - 100.0 ng/mL [facility] Remisol Comment on above: Interpretive Data: Vitamin D deficiency has been defined as a level of serum 25-OH vitamin D less than 20 ng/mL (1,2) by the [place] of [employer] and an Endocrine Society practice guideline. The Endocrine Society further defined vitamin D insufficiency as a level between 21 and 29 ng/mL (2). 1. IOM ([place] of Medicine). 2010. Dietary reference intakes for calcium and D. [place]: The National Academies Press. 2. Denia [...] 118 mL/min/1.73 m2 Normal >=59mL/min/1 .73 m2 [facility] Chem S Comment on above: Interpretive Data: [...] 07-04-2023 Albumin [Mass/Vol] 3.7 g/dL Normal 3.3-5.0 [facility] Comment on above: Performed By: #### 2 466296, 9149457, 8197622, 5943983, 664195038, 5786229, 7236628, 23625898, 7481794 #### [facility] [address] [place] [address] Albumin/Globulin (S) [Mass conc ratio] 1.0 Low 1.1-2.2 [facility] Comment on above: Performed By: #### 2 931648, 3528781, 1735778, 1812711, 005456215, 6380418, 3336865, 39241478, 2836869 #### [facility] [address] [place] [address] ALP [Catalytic activity/Vol] 37 Int._Unit/L Normal 21-98 [facility] Comment on above: Performed By: #### 2 349527, 5774075, 5192312, 5299260, 538480234, 6685405, 6350572, 99774372, 5005849 #### [facility] [address] [place] [address] ALT No additional P-5'-P [Catalytic activity/Vol] 15 Int._Unit/L Normal 6-46 [facility] Comment on above: Performed By: #### 2 449133, 8390622, 3409613, 1319095, 474773147, 9332113, 4867962, 20384818, 8756181 #### [facility] [address] [place] [address] Anion gap [Moles/Vol] 12 mmol/L Normal 6-16 [facility] Comment on above: Performed By: #### 2 783946, 5280913, 1000744, 4849905, 578657553, 9934631, 9253588, 00271059, 4744532 #### [facility] [address] [place] [address] AST [Catalytic activity/Vol] 22 Int._Unit/L Normal 5-43 [facility] Comment on above: Performed By: #### 2 589320, 8838654, 9349048, 4047876, 404646224, 2872954, 7265725, 81428575, 6825381 #### [facility] [address] [place] [address] Bilirubin [Mass/Vol] 0.1 mg/dL Normal 0.0-1.1 [facility] Comment on above: Performed By: #### 2 032367, 2543194, 7287082, 9857495, 495448727, 7851499, 5020167, 69042103, 3442509 #### [facility] [address] [place] [address] Calcium [Mass/Vol] 9.7 mg/dL Normal 8.9-11.1 [facility] Comment on above: Performed By: #### 2 191736, 9953540, 4246854, 5287554, 240473045, 8918390, 8016528, 22958093, 2970096 #### [facility] [address] [place] [address] Chloride [Moles/Vol] 108 mmol/L Normal 101-111 [facility] Comment on above: Performed By: #### 2 183010, 8254838, 9374449, 9237485, 403281525, 1211819, 1267482, 11072283, 3954191 #### [facility] [address] [place] [address] CO2 [Moles/Vol] 23 mmol/L Normal 21-31 [facility] Comment on above: Performed By: #### 2 292620, 3092787, 5814414, 2589647, 649481395, 2266958, 5305045, 44205661, 7139727 #### [facility] [address] [place] [address] Creatinine [Mass/Vol] 0.9 mg/dL Normal 0.5-1.3 [facility] Comment on above: Performed By: #### 2 389382, 1976116, 8725209, 2275875, 264437225, 2701150, 0028575, 40435102, 1822833 #### [facility] [address] [place] [address] Globulin (S) [Mass/Vol] 3.8 g/dL Normal 1.4-4.0 [facility] Comment on above: Performed By: #### 2 237065, 5606164, 4473588, 6420165, 626095604, 0095334, 4934854, 08666350, 8023997 #### [facility] [address] [place] [address] Glucose [Mass/Vol] 86 mg/dL Normal 55-199 [facility] Comment on above: Result Comment: If t his glucose result represents a fasting glucose, interpretation should refer to the following reference range: 55-99 mg/dL Performed By: #### 2 522186, 9356682, 3682807, 6086409, 853857107, 1118534, 4547295, 00589637, 0836515 #### [facility] [address] [place] [address] Potassium [Moles/Vol] 4.3 mmol/L Normal 3.5-5.3 [facility] Comment on above: Performed By: #### 2 071926, 8580047, 6090532, 9958912, 704778410, 0551928, 8754233, 00321480, 1129940 #### [facility] [address] [place] [address] Protein [Mass/Vol] 7.5 g/dL Normal 6.0-7.8 [facility] Comment on above: Performed By: #### 2 984644, 4940294, 7985050, 6196272, 052935581, 5085341, 2076739, 56369419, 0896228 #### [facility] [address] [place] [address] Sodium [Moles/Vol] 139 mmol/L Normal 135-145 [facility] Comment on above: Performed By: #### 2 540952, 1080343, 5317418, 0347322, 891089628, 4876844, 2312046, 57678908, 8754127 #### [facility] [address] [place] [address] Urea nitrogen [Mass/Vol] 20 mg/dL Normal 5-21 [facility] Comment on above: Performed By: #### 2 635078, 7957134, 2549750, 1210022, 679413573, 8572722, 9989220, 66741580, 3029690 #### [facility] [address] [place] [address] Urea nitrogen/Creatinine [Mass ratio] 22 No Units High 10-20 [facility] Comment on above: Performed By: #### 2 561400, 0096588, 3776721, 3367805, 153029667, 3487069, 0058708, 35928655, 4568087 #### [facility] [address] [place] [address] Free T4on 07-04-2023 Free T4 [Mass/Vol] 0.70 ng/dL Normal 0.58-1.64 [facility] Comment on above: Performed By: #### 2 364328, 4110311, 1175549, 4598434, 144961809, 6305339, 7208817, 78948501, 2615695 #### [facility] [address] [place] [address] HEMATOLOGYOrdered By: Jersey Arnett on 07-04-2023 Erythrocyte [...] 5.9 E9/L Normal 4.0 - 11.0 E9/L [facility] HemeAutoSS Lipid Panelon 07-04-2023 Cholesterol [Mass/Vol] 145 mg/dL Normal 120-200 [facility] Comment on above: Performed By: #### 2 697383, 7446075, 3852967, 8435088, 558550447, 0456449, 2097293, 70710795, 5682434 #### [facility] [address] [place] [address] Cholesterol in HDL [Mass/Vol] 40 mg/dL Invalid Interpretation Code [facility] Comment on above: Result Comment: HDL > or equal to 60 mg/dL: Low cardiovascular risk HDL < 40 mg/dL : High cardiovascular risk Performed By: #### 2 797831, 3505068, 8274452, 0923863, 610236386, 3745958, 8095200, 06664916, 7626012 #### [facility] [address] [place] [address] Cholesterol in LDL [Mass/Vol] 86 mg/dL Normal <=129 [facility] Comment on above: Performed By: #### 2 544082, 5766802, 3387768, 0651896, 718455062, 1314029, 9360033, 88195834, 2793077 #### [facility] [address] [place] [address] Cholesterol in VLDL [Mass/Vol] 27 mg/dL Normal 7-40 [facility] Comment on above: Performed By: #### 2 952872, 5999323, 9897499, 7693956, 386015819, 8043310, 7138488, 53760080, 9589405 #### [facility] [address] [place] [address] Triglyceride [Mass/Vol] 133 mg/dL Normal <=149 [facility] Comment on above: Performed By: #### 2 659285, 6229728, 0931025, 8256270, 300795435, 0752798, 0417069, 20039194, 7869701 #### [facility] [address] [place] [address] Physician Orderon 07-04-2023 Physician Order [id number]# 1.00TIFF Normal [facility] TSHon 07-04-2023 TSH Qn 2.75 m[IU]/L Normal 0.34-5.60 [facility] Comment on above: Performed By: #### 2 147700, 9734172, 4960292, 4749245, 513666291, 7374153, 0231054, 99612257, 0930992 #### [facility] [address] [place] [address] Valproic Acidon 07-04-2023 Valproate [Moles/Vol] 79 microgram/mL Normal 50-99 [facility] Comment on above: Performed By: #### 2 068224, 8936534, 6323069, 0905304, 665890713, 6731642, 1346879, 81397548, 7665073 #### [facility] [address] [place] [address] Vitamin D 25 Hydroxyon 07-04 25-hydroxyvitamin D3 [Mass/Vol] 33.7 ng/mL Normal 30.0-100.0 [facility] Comment on above: Result Comment: Vit alfredo D deficiency has been defined as a level of serum 25-OH vitamin D less than 20 ng/mL (1,2) by the [place] of [employer] and an Endocrine Society practice guideline. The Endocrine Society further defined vitamin D insufficiency as a level between 21 and 29 ng/mL (2). 1. IOM ([place] of Medicine). 2010. Dietary reference intakes for calcium and D. [place]: The National Academies Press. 2. Denia JACINTO, Marcelino CHAIDEZ, Ann GARVEY, et al. Evaluation, treatment, and prevention of vitamin D deficiency: an Endocrine Society clinical practice guideline. JCEM. 2010; 96 (7):1911-30. Performed By: #### 2 821064, 3612464, 7979470, 7701831, 082143450, 5124235, 7502951, 02763701, 8856603 #### [facility] [address] [place] [address] eGFRon 07-04-2023 GFR/1.73 sq M.predicted among non-blacks MDRD (S/P/Bld) [Vol rate/Area] 118 mL/min/1.73 m2 Normal >=59 [facility] Comment on above: Order Comment: Order added by Discern Expert. Result Comment: Picker Feeder jenni kidney disease could be indicated at eGFR's of less than 60 mL/min/1.73m2. Kidney failure is indicated at less than 15 mL/min/1.73m2. Performed By: #### 2 511455, 5118579, 6166613, 2274388, 239013114, 8236702, 5178839, 10782193, 1278588 #### [facility] [address] [place] [address] XR Chest PA and Lateralon EXAMINATION: XR [...] indicated with dedicated abdominal radiograph/CT. MACRO: None [facility] Study observation (narrative) [email or web address] XR Chest PA and LateralOrder ed By: Krystal Epstein on 06-22-2023 [email or web address] Work Phone: DEPAKENE/ VALPROIC ACIDon DEPAKENE 59.3 ug/ml Normal 50.0-100.0 [facility] Comment on above: Performed By: #### V ALP #### [facility] [address] [address] [address] Nikky King DEPAKENE/ VALPROIC ACIDon DEPAKENE 43.6 ug/ml Critically low 50.0-100.0 [facility] Comment on above: Performed By: #### V ALP #### [facility] [address] [address] [address] Nikky King LITHIUMon 12-06-2022 [place] (Eskalith(R)), Serum 0.8 mmol/L Normal 0.5-1.2 [facility] Comment on above: Result Comment: A co ncentration of 0.5-0.8 mmol/L is advised for long-term use; concentrations of up to 1.2 mmol/L may be necessary during acute treatment. Detection Limit = 0.1 <0.1 indicates None Detected Performed By: #### L ITHIUM #### [facility] [address] [place] [address] Dr. Nikky King DEPAKENE/ VALPROIC ACIDon DEPAKENE 61.7 ug/ml Normal 50.0-100.0 [facility] Comment on above: Performed By: #### V ALP #### [facility] [address] [place] [address] Dr. Nikky King LITHIUMon 11-23-2022 [place] (Eskalith(R)), Serum 0.9 mmol/L Normal 0.5-1.2 [facility] Comment on above: Result Comment: A co ncentration of 0.5-0.8 mmol/L is advised for long-term use; concentrations of up to 1.2 mmol/L may be necessary during acute treatment. Detection Limit = 0.1 <0.1 indicates None Detected Performed By: #### L ITHIUM #### [facility] [address] [place] [address] Dr. Nikky King CALCIUMon 08-22-2022 Calcium [Mass/Vol] 9.6 mg/dL Normal 8.5-10.1 [facility] Comment on above: Performed By: #### C A, CREA #### [facility] [address] [place] [address] Dr. Nikky King CREATININEon 08-22-2022 Creatinine [Mass/Vol] 0.84 mg/dL Normal 0.70-1.30 [facility] Comment on above: Performed By: #### C A, CREA #### [facility] [address] [place] [address] Dr. Nikky King EGFR-AF VINCENTIAN >60 Normal >=60 [facility] Comment on above: Performed By: #### C A, CREA #### [facility] [address] [place] [address] Dr. Nikky King EGFR-NON AF VINCENTIAN >60 Normal >=60 [facility] Comment on above: Performed By: #### C A, CREA #### [facility] [address] [place] [address] Dr. Nikky King LITHIUMon 07-05-2022 [place] (Eskalith(R)), Serum 0.9 mmol/L Normal 0.5-1.2 [facility] Comment on above: Result Comment: A co ncentration of 0.5-0.8 mmol/L is advised for long-term use; concentrations of up to 1.2 mmol/L may be necessary during acute treatment. Detection Limit = 0.1 <0.1 indicates None Detected Performed By: #### L ITHIUM #### [facility] [address] [place] [address] Dr. Nikky King Vital Signs Date Time Vital Sign Value Performing Clinician Severinoi lity 12-02-2024 12:32-0400 Body height 167.6 cm Cris Lowe PA Work Phone: [facility] 12-02-2024 12:32-0400 Body mass index (BMI) [Ratio] 31.96 kg/m2 Cris Lowe PA Work Phone: [facility] 12-02-2024 12:32-0400 Body weight 89.81 kg Cris Lowe PA Work Phone: [facility] 12-02-2024 12:32-0400 Diastolic blood pressure 82 mm[Hg] Cris Lowe PA Work Phone: [facility] 12-02-2024 12:32-0400 Systolic blood pressure 128 mm[Hg] Cris Lowe PA Work Phone: [facility] 05-21-2024 09:29-0400 Body height 167.6 cm Cris Lowe PA Work Phone: [facility] 05-21-2024 09:29-0400 Body mass index (BMI) [Ratio] 31.96 kg/m2 Cris Lowe PA Work Phone: [facility] 05-21-2024 09:29-0400 Body weight 89.81 kg Cris Lowe PA Work Phone: [facility] 05-21-2024 09:29-0400 Diastolic blood pressure 90 mm[Hg] Cris Lowe PA Work Phone: [facility] 05-21-2024 09:29-0400 Systolic blood pressure 136 mm[Hg] Cris BANG Work Phone: [facility] 12-28-2023 14:30-0400 Diastolic blood pressure 89 mm[Hg] aMri Traore DMD Work Phone: [facility] 12-28-2023 14:30-0400 Heart rate 69 /min Mari Traore DMD Work Phone: [facility] 12-28-2023 14:30-0400 Respiratory rate 10 /min Mari Traore DMD Work Phone: [facility] 12-28-2023 14:30-0400 SaO2% (BldA) [Mass fraction] 100 % Mari Traore DMD Work Phone: [facility] 12-28-2023 14:30-0400 Systolic blood pressure 135 mm[Hg] Mari Traore DMD Work Phone: [facility] 12-28-2023 13:52-0400 Body temperature 97.3 [degF] Mari Traore DMD Work Phone: [facility] 12-28-2023 09:15-0400 Body height 167.6 cm Mari Traore DMD Work Phone: [facility] 12-28-2023 09:15-0400 Body mass index (BMI) [Ratio] 31.8 kg/m2 Mari Traore DMD Work Phone: [facility] 12-28-2023 09:15-0400 Body weight 89.36 kg Mari Traore DMD Work Phone: [facility] 12-19-2023 11:23-0400 Diastolic blood pressure 90 mm[Hg] Ling Markiv FITNESS TRAINER-TRAVELING SECRETARY Work Phone: [facility] 12-19-2023 11:23-0400 Systolic blood pressure 132 mm[Hg] Ling Markiv FITNESS TRAINER-TRAVELING SECRETARY Work Phone: [facility] 12-19-2023 11:03-0400 Body height 167.6 cm Ling Markiv FITNESS TRAINER-TRAVELING SECRETARY Work Phone: [facility] 12-19-2023 11:03-0400 Body mass index (BMI) [Ratio] 31.8 kg/m2 Ling Coffman FITNESS TRAINER-TRAVELING SECRETARY Work Phone: [facility] 12-19-2023 11:03-0400 Body temperature 97.81 [degF] Ling Coffman FITNESS TRAINER-TRAVELING SECRETARY Work Phone: [facility] 12-19-2023 11:03-0400 Body weight 89.36 kg Ling Coffman FITNESS TRAINER-TRAVELING SECRETARY Work Phone: [facility] 12-19-2023 11:03-0400 Heart rate 59 /min Ling Coffman FITNESS TRAINER-TRAVELING SECRETARY Work Phone: [email or web address] 12-19-2023 11:03-0400 Respiratory rate 18 /min Ling Coffman FITNESS TRAINER-TRAVELING SECRETARY [facility] 12-19-2023 11:03-0400 SaO2% (BldA) [Mass fraction] 97 % Ling Coffman FITNESS TRAINER-TRAVELING SECRETARY Work Phone: [facility] 12-03-2023 13:07-0400 Body height 167.6 cm Oscar Ruiz MD Work Phone: [facility] 12-03-2023 13:07-0400 Body weight 92.53 kg Oscar Ruiz MD Work Phone: [facility] 12-03-2023 13:07-0400 Diastolic blood pressure 76 mm[Hg] Oscar Ruiz MD Work Phone: [facility] 12-03-2023 13:07-0400 Heart rate 71 /min Oscar Ruiz MD Work Phone: [facility] 12-03-2023 13:07-0400 Systolic blood pressure 111 mm[Hg] Oscar Ruiz MD Work Phone: [facility] 11-28-2023 09:48-0400 Body height 167.6 cm Victoria Daniel FITNESS TRAINER.TRAVELING SECRETARY Work Phone: [facility] 11-28-2023 09:48-0400 Body temperature 97.5 [degF] Victoria Daniel FITNESS TRAINER.TRAVELING SECRETARY Work Phone: [facility] 11-28-2023 09:48-0400 Body weight 87.54 kg Victoria Daniel FITNESS TRAINER.TRAVELING SECRETARY Work Phone: [facility] 11-28-2023 09:48-0400 Diastolic blood pressure 66 mm[Hg] Victoria Daniel FITNESS TRAINER.TRAVELING SECRETARY Work Phone: [facility] 11-28-2023 09:48-0400 Heart rate 83 /min Victoria Daniel FITNESS TRAINER.TRAVELING SECRETARY Work Phone: [facility] 11-28-2023 09:48-0400 Systolic blood pressure 134 mm[Hg] Victoria Daniel FITNESS TRAINER.TRAVELING SECRETARY Work Phone: [facility] 07-16-2023 08:06-0500 Body mass index (BMI) [Ratio] 33.97 kg/m2 Kim Beltre MD Work Phone: [facility] 07-16-2023 08:06-0500 Body temperature 97.5 [degF] Kim Beltre MD Work Phone: [facility] 07-16-2023 08:06-0500 Body weight 90.27 kg Kim Beltre MD Work Phone: [facility] 07-16-2023 08:06-0500 Diastolic blood pressure 80 mm[Hg] Kim Beltre MD Work Phone: [facility] 07-16-2023 08:06-0500 Heart rate 37 /min Kim Beltre MD Work Phone: [facility] 07-16-2023 08:06-0500 Respiratory rate 15 /min Kim Beltre MD Work Phone: [facility] 07-16-2023 08:06-0500 SaO2% (BldA) [Mass fraction] 100 % Kim Beltre MD Work Phone: [facility] 07-16-2023 08:06-0500 Systolic blood pressure 110 mm[Hg] Kim Beltre MD Work Phone: [facility] Encounters Encounter Date Encounter Type Care Provider Facility Start: 12-16-2024 End: 12-16-2024 Telephone encounter To Be Assigned [facility] Physicia n Referral Service Comment on above: [...] Letter encounter Aileen Corcoran DDS Work Phone: [facility] Start: 05-21-2024 End: 05-21-2024 Bamboo flowsheet Cris [...] Letter encounter Aileen Corcoran DDS Work Phone: [facility] Start: 02-13-2024 End: 02-13-2024 Lab Drop off [facility] Start: 02-13-2024 End: 02-13-2024 ambulatory HERMAN CRANE [facility] Start: 01-29-2024 End: 01-29-2024 ambulatory CRIS ELBA Not Available Start: 01-11-2024 Telephone encounter Cris Dinh RN Colorectal Surgery Comment on above: Engineer Process - O ther Start: 12-28-2023 End: 12-31-2023 Patient encounter procedure Mari Traore DMD Work Phone: [facility] Start: 12-28-2023 End: 12-28-2023 Subsequent hospital visit by physician Mari Traore DMD Work Phone: [facility] Start: 12-28-2023 End: 12-31-2023 ambulatory RYAN FARMERSVILLEDYAN Facility:[facility] Start: 12-25-2023 Telephone encounter Shayy Chnadler RN [facility] Pre-Admission Testing Comment on above: Pre-surgical Evaluat ion (DD adult dental restorations 12/27 under GA at [place]. PAT completed - consent request sent to main - see future encounter for results. CHRISTINA RN spoke to [facility], confirmed [facility], [place] address, and 0900 arrival time/) Pre-surgical Evaluat ion (Anesthesia Attestaion for dental surgery scanned in vice president media relations) Start: 12-20-2023 End: 12-20-2023 Orders Only Victoria Sanchez FITNESS TRAINER.TRAVELING SECRETARY Work Phone: General Surgery Comment on above: Sigmoid volvulus (HC C) (Primary Dx) Start: 12-19-2023 End: 12-19-2023 Patient encounter procedure Ling Ridleyclaudia FITNESS TRAINER-TRAVELING SECRETARY Work Phone: [facility] Pre-Admission Testing Comment on above: Pre-op testing (Prim marylni Dx); Body mass index (BMI) 31.0-31.9, adult Start: 12-19-2023 End: 12-19-2023 Patient encounter status Ling Coffman FITNESS TRAINER-TRAVELING SECRETARY Work Phone: [facility] Work Phone: Start: 12-19-2023 ambulatory RYAN ZURITA Facilit y:[facility] Start: 12-19-2023 Encounter for other preprocedural examination [facility]ING COFFMAN [facility] Start: 12-11-2023 End: 12-11-2023 ambulatory EPIFANIO YUKO Not Available Start: 12-03-2023 End: 12-04-2023 ambulatory Rafael Giraldo MD Work Phone: Urology Start: 12-03-2023 End: 12-03-2023 Office outpatient visit 5 minutes Oscar Ruiz MD Work Phone: Urology Comment on above: Phimosis (Primary Dx ) Start: 11-28-2023 End: 11-29-2023 ambulatory VICTORIA SANCHEZ Facility:[facility] Start: 11-28-2023 End: 11-28-2023 Patient encounter procedure Victoria Sanchez FITNESS TRAINER.TRAVELING SECRETARY Work Phone: General Surgery Comment on above: Postoperative visit (Primary Dx) Start: 11-12-2023 Telephone encounter Cris Dinh RN Colorectal Surgery Comment on above: Engineer Process - O ther Start: 11-07-2023 End: 11-07-2023 ambulatory PHOENIX CARDENAS Facility:[facility] Start: 10-28-2023 Evaluation and management of inpatient PHOENIX CARDENAS Facility:[facility] Start: 10-10-[address] [facility] Coleen Dodson DDS Other Phone: [facility] Start: 07-16-2023 End: 07-16-2023 Emergency department patient visit Kim Beltre MD Work Phone: [facility] Comment on above: bradycardia (Low HR (33)) Start: 07-16-2023 End: 07-16-2023 Subsequent hospital visit by physician Harpreet Mccurdy DDS Work Phone: [facility] Radiology CT Scan Comment on above: Arrived Start: 07-04-2023 End: 07-04-2023 ambulatory HERMAN CRANE [facility] Start: 07-04-2023 End: 07-04-2023 Lab Drop off [facility] Start: 06-26-2023 Telephone encounter Shanna marquez RN [facility] Pre Surgical Evaluation Comment on above: Pre-surgical Evaluat ion (Informed Consent for dental surgery & Anesthesia consent obtained) Start: 06-22-2023 End: 06-22-2023 Subsequent hospital visit by physician Alin Op Xray 2 [facility] Rad[facility] Comment on above: Pre-op exam Start: 06-22-2023 End: 06-22-2023 Patient encounter procedure Pse Anesthesia [facility] Pre Surgical Evaluation Comment on above: Pre-op evaluation (P rimary Dx) Start: 06-22-2023 End: 06-22-2023 Preprocedural examination done Pse Anesthesia [facility] Work Phone: Start: 05-25-[address] [facility] Hiram Rodriguez DDS Work Phone: [facility] Start: 01-17-[address] HERMAN CRANE Fac [...] specified special examinations DR HERMAN CRANE [facility] Start: 08-22-2022 End: 08-23-[address] HERMNA CRANE Facility:[facility] Start: 08-22-2022 End: 08-23-2022 Encounter [...] Start: 03-29-2022 Telephone encounter To Be Assigned [facility] Physician Referral Service Comment on above: Medical Record Revie w Procedures Date Procedure Procedure Detail Performing Clinician Start: 12-19-2023 Basic metabolic pane l calcium total Ling Markiv FITNESS TRAINER-TRAVELING SECRETARY Work Phone: Start: 10-28-2023 Antibody screen PHOENIX CARDENAS Comment on above: Order Comment: Speci men Type: BLOOD SPECIMEN Ordering Facility: [facility] Address: [address] [place] [address] Performed By: #### 2 4321-2, 50020-6, 2777-1 #### [facility] CLIA [id number] [address] [place] [address] [place] Start: 07-16-2023 End: [...] DTaP,Tdap,Td Vaccine (2 - Td or Tdap) [facility] Start: 12-02-2024 End: 12-02-2024 [facility] Comment on above: Arrived Start: 05-21-2024 End: 05-21-2024 Patient encounter procedure 05/21/2024 9:40 AM EDT Office Visit [facility] [address] [place] [id number] Cris Walters PA [address] [place] [address] [facility] Comment on above: Arrived Start: 04-20-2024 COVID-19 Vaccine ( season) COVID-19 Vaccine ( season) [facility] Start: 04-20-2024 COVID-19 Vaccine ( season) COVID-19 Vaccine ( season) [facility] Start: 04-20-2024 Influenza vaccination Influenza Vacc ine (#1) [facility] Start: 03-11-2024 End: 03-11-2024 Patient encounter procedure 03/11/2024 9:00 AM EDT Office Visit [facility] [address] [place] [address] [address] [place] [address] Iain Lazcano MD [address] [facility] [address] [place] [address] Cataracts Ophthalmology Comment on above: Cataracts Start: 12-28-2023 End: 12-28-2023 Admission to same day surgery center 12/28/2023 10:01 AM EDT - 12/28/2023 12:21 PM EDT Surgery [facility] [address] [place] [address] Mari Traore, DMD [address] [place] [address] DENTAL RESTORATIONS [facility] Comment on above: DENTAL RESTORATIONS Start: 12-28-2023 End: 12-28-2023 DENTAL RESTORATIONS [facility] Start: 12-28-2023 Subsequent hospital visit by physician 12/28/2023 10:01 AM EDT Hospital Encounter [facility] [address] [place] [address] Mari Traore, DMD [address] [place] [address] [facility] Start: 12-28-2023 End: 12-28-2023 Patient encounter procedure 12/28/2023 9:00 AM EDT Procedure Visit [facility] [address] [place] [address] Mari Traore, DMD [address] [place], [place] [id number] [facility] Start: 08-20-2023 Behavioral Health Screening Behavioral Health Screening [facility] Start: 08-20-2023 Depression Assessment Depression Ass essment [facility] Start: 07-16-2023 End: 07-16-2023 DENTAL RESTORATIONS DENTAL RESTORATIONS Routine scheduled Caries 07/16/2023 1:45 PM EST [facility] Start: 07-16-2023 End: 07-16-2023 Admission to same day surgery center 07/16/2023 9:27 AM EST - 07/16/2023 11:24 AM EST Surgery [facility] [address] [place] [address] Harpreet Mccurdy, DDS [address] [place] [address] DENTAL RESTORATIONS [facility] Comment on above: DENTAL RESTORATIONS Start: 07-16-2023 End: 07-16-2023 DENTAL RESTORATIONS DENTAL RESTORATIONS Routine scheduled Caries 07/16/2023 9:27 AM EST [facility] Start: 07-16-2023 Subsequent hospital visit by physician [facility] Start: 06-22-2023 End: 06-22-2023 Patient encounter procedure 06/22/2023 2:30 PM EDT Office Visit [facility] [address] [place] [address] Franc Beyer MD [address] [place], [place] [id number] [facility] Start: 04-20-2023 COVID-19 Vaccine ( season) COVID-19 Vaccine ( season) [facility] Start: 04-20-2023 Influenza vaccination Influenza Vacc ine (#1) [facility] Start: 05-20-2022 Influenza vaccination Influenza Vacc ine (#1) [facility] Start: 04-20-2022 Influenza vaccination INFLUENZA (#1) [facility] Start: 08-20-2021 DEPRESSION ASSESSMENT DEPRESSION ASS ESSMENT [facility] Start: 08-10-2021 COVID-19 VACCINE (4 - Booster for Pfizer series) COVID-19 VACCINE (4 - Booster for Pfizer series) [facility] Start: 2019 HPV Vaccine (optiona l start 27-45 years) HPV Vaccine (optional start 27-45 years) [facility] Start: 02-17-2014 Annual wellness visit Annual W ellness Visit (G0438) [facility] Start: 2011 Hepatitis A (HAV) Vaccine (optional start 19+ years) Hepatitis A (HAV) Vaccine (optional start 19+ years) [facility] Start: 2011 Hepatitis B vaccination Hepatitis B (HBV) Vaccine (1 of 3 - 19+ 3-dose series) [facility] Start: 2011 Hepatitis B Vaccine (1 of 3 - 19+ 3-dose series) Hepatitis B Vaccine (1 of 3 - 19+ 3-dose series) [facility] Start: 2011 Urine microalbumin profile DTAP,TDAP,TD (1 - Tdap) [facility] Start: 2010 Annual PCP Team Chronic Disease Visit Annual PCP Team Chronic Disease Visit [facility] Start: 2010 Hepatitis C screening [facility] Start: 2010 HEPATITIS C SCREENING HEPATITIS C SC RENATE [facility] Start: 2010 HIV SCREENING HIV SCREENING [place] Start: 2010 HIV screening HIV Screening [place] Start: 2007 HIV screening HIV Test [facility] Start: 2004 Adult depression screening assessment DEPRESSION SCREENING [facility] Start: 1992 HEPATITIS B (1 of 3 - 3-dose series) HEPATITIS B (1 of 3 - 3-dose series) [facility] Start: 1992 Hepatitis B vaccination Hepatitis B (HBV) Vaccine (1 of 3 - 3-dose series) [facility] Start: 1992 Thyroid stimulating hormone measurement TSH [facility] DENTAL RESTORATIONS DENTAL OMAR RATIONS Routine scheduled Caries [facility] URINALYSIS, REFLEX MICROSCOPIC URINALYSIS, REFLEX MICROSCOPIC Lab Routine Screening for genitourinary condition Ordered: 12/03/2023 [facility] Work Phone: Comment on above: Ordered: 12/03/2023 [facility] Immunizations Immunization Date Immunization Notes Care Provider Jason lowe 06-15-2021 influenza, injectabl e, quadrivalent, preservative free To Assigned [facility] 06-15-2021 influenza virus vacc ine, unspecified formulation To Assigned [facility] 05-26-2020 influenza, injectabl e, quadrivalent, preservative free To Assigned [facility] 07-10-2019 tetanus toxoid, redu alex diphtheria toxoid, and acellular pertussis vaccine, adsorbed To Assigned [facility] 06-13-2019 influenza, injectabl e, quadrivalent, preservative free To Assigned [facility] 05-29-2018 influenza, injectabl e, quadrivalent, preservative free To Assigned [facility] 06-13-2017 influenza, injectabl e, quadrivalent, contains preservative To Assigned [facility] 06-10-2015 influenza, injectabl e, quadrivalent, preservative free To Assigned [facility] 06-12-2012 influenza, seasonal, injectable To A ssigned [facility] 05-03-2011 influenza, seasonal, injectable, preservative free To Assigned [facility] 06-15-2010 influenza, seasonal, injectable To A ssigned [facility] 07-07-2009 novel influenza-H1N1 -09, preservative-free, injectable To Assigned [facility] 05-11-2009 influenza, seasonal, injectable To A ssigned [facility] 06-15-2008 influenza, seasonal, injectable To A ssigned [facility] 06-11-2008 influenza virus vacc ine, whole virus To Assigned [facility] Payers Date Payer Category Payer Specific state progr [facility] (list/ local code) TB FUNDED 0000 [id number] 07-08-2020 Unknown [id number] 07-20-2017 Dental --Stand Alone DENTAL-MEDI CAID [id number] 07-20-2017 Medicaid [id number] .[id number] 02-17-2013 Medicare [id number] 1.13.56.2.7 .[id number] 02-17-2013 Medicare FFS MEDICARE [id number] 1992 Unknown [id number] 2.16.840.1.439031.3.579.2. 727 1992 Unknown [id number] 2.16.840.1.763642.3.579.2. 727 1992 Unknown [id number] 2.16.840.1.613620.3.579.2. 1259 1992 Unknown [id number] 2.16.840.1.535298.3.579.2. 1259 1992 Unknown [id number] 2.16.840.1.302160.3.579.2. 1259 1992 Unknown [id number] 2.16.840.1.390929.3.579.2. 1259 1992 Unknown [id number] 2.16.840.1.377965.3.579.2. 1259 1992 Unknown [id number] 2.16.840.1.779550.3.579.2. 732 1992 Unknown [id number] 2.16.840.1.403033.3.579.2. 732 1992 Unknown [id number] 2.16.840.1.089870.3.579.2. 732 1992 Unknown [id number] 2.16.840.1.602827.3.579.2. 732 08-20-1957 Medicaid [id number] 08-20-1957 Medicare [id number] Unknown [id number] 2.16.840.1.028678.3.579.2. 593 Unknown [id number] 2.16.840.1.528165.3.579.2. 593 Unknown [id number] 2.16.840.1.369538.3.579.2. 593 Unknown [id number] 2.16.840.1.944553.3.579.2. 593 Unknown [id number] 2.16.840.1.945961.3.579.2. 593 Unknown [id number] 2.16.840.1.810283.3.579.2. 593 Unknown [id number] 2.16.840.1.740121.3.579.2. 593 Unknown [id number] 2.16.840.1.028415.3.579.2. 593 Specific state progr ams (list/ local code) TB FUNDED [id number] Social History Date Type Detail Facility Start: 07-08-2019 End: 12-11-2023 Tobacco smoking status NHIS Never smoked tobacco [facility] Start: 07-08-2019 End: 12-11-2023 Tobacco use and exposure Smokeless tobacco non-user [facility] Start: 02-04-2021 End: 12-31-2023 Alcohol intake [facility]dr[facility] (finding[facility] Start: 07-13-2020 History SDOH Alcohol Frequency 1 [facility] Start: 1990 Sex Assigned At Not on file [facility] Start: 05-04-2022 End: 12-19-2023 Tobacco smoking status NHIS Tobacco smoking consumption unknown [facility] Start: 04-24-2022 End: 05-04-2022 Exposure to SARS-CoV-2 (event) Not sure [facility] Start: 06-22-2023 End: 10-29-2023 Gender identity Not on file [facility] Tobacco smoking status No Smokin g Status Entered [facility] Start: 06-22-2023 End: 10-29-2023 History of Social function [facility] Work Phone: Has the [employer], or [employer] threatened to shut off services in your home in past 12Mo Patient unable to answer [facility] Work Phone: How often to you hav e a drink containing alcohol? Never [facility] Work Phone: Start: 07-20-2017 Sex Male (finding) [facility] Clinical Notes 03-29-2022 to 12-16-2024 Telephone Encounter [...] date (10 year lookback): Not Found [facility] 12-16-2024 Telephone encounter Note Outreach Team ([phone]) Contact Details: I did not contact. Pt [...] Smear date (10 year lookback): Not Found [facility] 12-16-2024 Miscellaneous Notes Outreach Team ([phone]) Contact Details: I did not contact. Pt [...] lookback): Not Found documented in this encounter [facility] 12-02-2024 History of Present illness Narrative Subjective [...] CT scan of the brain 11/03/23 at [facility] that revealed volume loss, especially in [...] or worsening symptoms. documented in this encounter [facility] 05-21-2024 History of Present illness Narrative [...] CT scan of the brain 11/03/23 at [facility] that revealed volume loss, especially in [...] in 6 months documented in this encounter [facility] 02-13-2024 Evaluation + Plan note Diagnostic Tests PendingKeppra Lvl 02/13/24Lamotrigine Level 02/13/24 [facility] 01-11-2024 Telephone encounter Note Jessica from [facility] [phone] is caller. She states was originally told [...] needs at present time. Cris Dinh, RN [facility] 01-11-2024 Miscellaneous Notes Jessica from [facility] [phone] is caller. She states was originally told [...] Cris Dinh, RN documented in this encounter [facility] 12-28-2023 Hospital Discharge instructions Benjamín Guo - 12/28/2023 2:17 PM EDT PERIOPERATIVE DISCHARGE/HOME-GOING INSTRUCTIONS ANESTHESIA - GENERAL (ADULT) If a problem arises, you may contact your physician by calling [phone] and asking for the resident consulting application engineer for Dental service. Special Care Needs: Activity: [...] sent through Care Everywhere.Tooth Extraction Discharge Instructions ([place])documented in this encounter [facility] 12-28-2023 History and physical note Surgical Attestation: [...] possible Mari Traore DMD 12/28/2023 10:09 AM [facility] Work Phone: 12-28-2023 Note Surgical Attestation : [...] Mari Traore DMD 12/28/2023 10:09 AM [facility] 12-28-2023 History and physical note Surgical [...] 12/28/2023 10:09 AM documented in this encounter [facility] 12-28-2023 Miscellaneous Notes Brief Operative Note [facility] OR 3 Johnny Devine 33 year old male Surgical Contact Serial Number: [id number] Preoperative Diagnosis: Pre-op Diagnosis * Caries [K02.9] Moderate intellectual disability [F79] Postoperative Diagnosis: Moderate intellectual disability [F79] Procedures: Comprehensive exam [78908] Full mouth X-ray [ 02789] Extractions [22247] Restorations [12727] Prophy 42209] Fluoride treatment [91783] Surgeon(s): Surgeon(s): Mari Traore DMD Staff: Elementary Esl Teacher Nurse: Henrietta Jhonson Anesthesia: General Anesthesia Staff: Selena Camacho APRN-CRNA [...] disability[F79] @ENCORD@ Surgeon: Dr. Mari Traore DMD Flow Nurse Surgeon: Reema Whiting DDS Anesthesia: General- Nasal [...] 4 mg/0.1 mL nasal liquid Use 1 Wink in one nostril (alternate sides) as needed [...] were discussed with the patient and/or legal small business representative. The risks, benefits and alternatives were reviewed. Questions regarding blood transfusions were answered. The patient /or the patient s legal small business representative agree with the plan for transfusion of blood and/or blood components. documented in this encounter [facility] 12-28-2023 Surgery Postoperative evaluation and management note Brief Operative Note [facility] OR 3 Johnny Devine 33 year old male Surgical Contact Serial Number: [id number] Preoperative Diagnosis: Pre-op Diagnosis * Caries [K02.9] Moderate intellectual disability [F79] Postoperative Diagnosis: Moderate intellectual disability [F79] Procedures: Comprehensive exam [70727] Full mouth X-ray [ 43924] Extractions [19928] Restorations [93235] Prophy 26457] Fluoride treatment [24207] Surgeon(s): Surgeon(s): Mari Traore DMD Staff: Elementary E[employer] Teacher Nurse: Henrietta Johnson Anesthesia: General Anesthesia Staff: [...] by Reema Whiting DDS 12/28/2023 1;48 pm [facility] 12-28-2023 Surgery Surgical operation note Surgical Case Number Data Unavailable Operating Room Data Unavailable Preoperative Diagnosis(es): Pre-op Diagnosis * Caries [K02.9] Moderate intellectual disability [F79] Postoperative Diagnosis(es): Moderate intellectual disability[F79] @ENCORD@ Surgeon: Dr. Mari Traore DMD Flow Nurse Surgeon: Reema Whiting DDS Anesthesia: General- Nasal [...] 4 mg/0.1 mL nasal liquid Use 1 Wink in one nostril (alternate sides) as needed [...] procedure. Reema Whiting DDS 12/28/2023 1:53 pm [facility] 12-28-2023 Progress note Formatting of t his note is different from the original. Blood Attestation: ATTESTATION OF INFORMED CONSENT FOR BLOOD: The transfusion of blood and/or blood components were discussed with the patient and/or legal small business representative. The risks, benefits and alternatives were reviewed. Questions regarding blood transfusions were answered. The patient /or the patient s legal small business representative agree with the plan for transfusion of blood and/or blood components. [facility] 12-28-2023 History of Present illness Narrative Patient takes his seizure medication with pudding, facility held them today for dental surgery. Caregiver brought capsules with them to pre-op. Per Dr. Saldivar, divalproex 125 mg x 4 capsules (500 mg) were opened and sprinkles given to patient with 50 mL of water in pre-op. 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 MB cusp tip was visualized upon extraction of #17, but well encased in bone and would not be exposed to the oral cavity following healing of the extraction site. Preoperative Diagnosis(es): Pre-op Diagnosis * Caries [K02.9] Moderate intellectual disability [F79] Postoperative Diagnosis(es): Moderate intellectual disability[F79] Surgeon: Dr. Mari Traore DMD Flow Nurse Surgeon: Reema Whiting DDS Anesthesia: General- Nasal [...] of surgery: Stable documented in this encounter [facility] 12-21-2023 Evaluation note Addendum 12/21/2023- Caregiver @ [facility] facility called to relay that patient unable [...] Kiko VASQUEZ RN updated nursing staff @ [facility]. [facility] 12-21-2023 Miscellaneous Notes Addendum 12/21/2023- Caregiver @ [facility] facility called to relay that patient unable [...] Kiko VASQUEZ RN updated nursing staff @ [facility]. Patient was identified by name and date of . Jaswinder Arredondo Patient at risk for falls:No Falls Risk protocol implemented: N/A documented in this encounter [facility] 12-19-2023 Instructions Ling Coffman APRN-TRAVELING SECRETARY - 12/19/2023 11:26 AM EDT On the [...] for pain. Please hold all Vitamin E, [place] 3, fish oil and herbal supplements for 1 week prior to surgery. Please use this LIST to prepare for your surgery/procedure: ? Assume that any lab or testing done during your Pre-admission testing appointment is within normal limits unless otherwise contacted. ? Expect a call from [facility] one business day prior to surgery for [...] your Preparing for Your Surgery/Procedure booklet or [email or web address] if you have questions. Contact the Pre-Admission Testing department at [phone] or your surgeon's office with any questions [...] stay with you after surgery. Please call [facility] [employer] if you need transportation assistance or have concerns about going home [phone]. ? SLEEP APNEA PATIENTS: Bring your sleep apnea machine and mask. ? PLEASE BE ON TIME. A late arrival may result in the cancellation/ delay of your surgery. Thank you for choosing [facility]; it is our pleasure to care for you documented in this encounter [facility] 12-19-2023 Instructions Shanna Sauceda RN - 12/19/2023 11:26 AM EDT [facility] staff: Since patient is unable to take [...] for pain. Please hold all Vitamin E, [place] 3, fish oil and herbal supplements for 1 week prior to surgery. Please use this LIST to prepare for your surgery/procedure: ? Assume that any lab or testing done during your Pre-admission testing appointment is within normal limits unless otherwise contacted. ? Expect a call from [facility] one business day prior to surgery for [...] your Preparing for Your Surgery/Procedure booklet or [email or web address] if you have questions. Contact the Pre-Admission Testing department at [phone] or your surgeon's office with any questions [...] stay with you after surgery. Please call [facility] if you need transportation assistance or have concerns about going home [phone]. ? SLEEP APNEA PATIENTS: Bring your sleep apnea machine and mask. ? PLEASE BE ON TIME. A late arrival may result in the cancellation/ delay of your surgery. Thank you for choosing [facility]; it is our pleasure to care for you documented in this encounter [facility] 12-19-2023 Evaluation note Patient was identified by name and date of . Jaswinder Arredondo Patient at risk for falls:No Falls Risk protocol implemented: N/A [facility] 12-19-2023 Miscellaneous Notes Patient was identified by name and date of . Jaswinder Arredondo Patient at risk for falls:No Falls Risk protocol implemented: N/A documented in this encounter [facility] 12-19-2023 History of Present illness Narrative Images from the original note were not included. Pre-Admission Testing Consultation Johnny Devine, [id number] 33 year old Male 12/19/2023 Consult placed to [facility] by Mari Traore, due to significant PMH of Hypothyroidism , Bipolar, Autistic disorder ,Epilepsy [facility] Triage Risk Score Total Score: 3 1 [...] intervention warranted . Patient with Lamaar from [facility] facility during this appointment Patient is here for pre-admission optimization and education prior to surgery. RECENT ILLNESS: Serious illness or hospitalization within the last six months. Yes 10/28/2023 HOSPITAL COURSE: Johnny Devine is a 33 year old male with developmental delay and no PSH who presents as a transfer to [facility] from [facility] for further management of small bowel obstruction. Given patient's baseline cognitive status, NGT difficult to maintain. He was admitted to the [facility] under care of general surgery and was taken to the OR the following morning for diagnostic laparoscopy. Intra-operative findings demonstrated no adhesins, no apparent hernias, dilated small/large bowel, redundant sigmoid c/f volvulus, easily reduced. After recovering in the PACU, he was taken to the [facility] with NGT in place. Patient arrived to [facility] with 8 Fr pediatric haskins catheter in place, which inadvertently was removed post operatively. Overnight, patient retained urine and Urology was consulted for assistance with haskins catheter replacement. Paraphimosis was noted and could not be reduced. Patient taken back to the OR the following morning 10/29 for dorsal slit procedure. A 10-Fr Hasknis was placed without difficulty and will remain [...] in home regimen. Stable for discharge to fdc. Neurology Recommendations on Discharge: - Discharge on [...] RESTORATIONS; Surgeon: Harpreet Mccurdy DDS; Location: [facility]; Service: Dental Past Medical History [...] MG CSDR capsule LABORATORY DATA: CBC @ [facility] 11/07/2023 CBC Order: [id number] Component Ref Range & Units 1 mo [...] 0418 [id number] 110 21 91 Comment: The [place] [employer] (ADA) provides guidance for cutoff [...] Standards of Medical Care in Diabetes 2016, [place] [employer]. Diabetes Care. 2016.39(Suppl 1). 8 0.70 8.2 11/06/23 0943 146 112 18 83 Comment: The [place] [employer] (ADA) provides guidance for cutoff [...] Standards of Medical Care in Diabetes 2016, [place] [employer]. Diabetes Care. 2016.39(Suppl 1). 6 0.69 8.9 11/05/23 0418 142 112 23 96 Comment: The [place] [employer] (ADA) provides guidance for cutoff [...] Standards of Medical Care in Diabetes 2016, [place] [employer]. Diabetes Care. 2016.39(Suppl 1). 5 0.64 7.6 11/04/23 0826 145 112 24 79 Comment: The [place] [employer] (ADA) provides guidance for cutoff [...] Standards of Medical Care in Diabetes 2016, [place] [employer]. Diabetes Care. 2016.39(Suppl 1). 4 0.70 7.7 TESTS REVIEWED: I personally reviewed and interpreting and findings were: CXRay: Chest x-ray was last done on 10/31/2023 EK10/31/2023 @ [facility] NORMAL SINUS RHYTHM ANTEROLATERAL T WAVE [...] 1:39 PM 12/19/2023 documented in this encounter [facility] 12-19-2023 History of Present illness Narrative Images from the original note were not included. Pre-Admission Testing Consultation Johnny Devine, [id number] 33 year old Male 12/19/2023 Consult placed to [facility] by Mari Traore, due to significant PMH of Hypothyroidism , Bipolar, Autistic disorder ,Epilepsy [facility] Triage Risk Score Total Score: 3 1 [...] intervention warranted . Patient with Lamaar from [facility] facility during this appointment Patient is here for pre-admission optimization and education prior to surgery. RECENT ILLNESS: Serious illness or hospitalization within the last six months. Yes 10/28/2023 HOSPITAL COURSE: Johnny Devine is a 33 year old male with developmental delay and no PSH who presents as a transfer to [facility] from [facility] ED for further management of small bowel obstruction. Given patient's baseline cognitive status, NGT difficult to maintain. He was admitted to the [facility] under care of general surgery and was taken to the OR the following morning for diagnostic laparoscopy. Intra-operative findings demonstrated no adhesins, no apparent hernias, dilated small/large bowel, redundant sigmoid c/f volvulus, easily reduced. After recovering in the PACU, he was taken to the [facility] with NGT in place. Patient arrived to [facility] with 8 Fr pediatric haskins catheter in [...] in home regimen. Stable for discharge to fdc. Neurology Recommendations on Discharge: - Discharge on [...] RESTORATIONS; Surgeon: Harpreet Mccurdy DDS; Location: [facility]; Service: Dental Past Medical History [...] DATA: CBC @ [facility] 11/07/2023 CBC Order: [id number] Component Ref Range & Units 1 mo [...] 0418 141 110 21 91 Comment: The [place] [employer] (ADA) provides guidance for cutoff [...] Standards of Medical Care in Diabetes 2016, [place] [employer]. Diabetes Care. 2016.39(Suppl 1). 8 0.70 8.2 11/06/23 0943 146 112 18 83 Comment: The [place] [employer] (ADA) provides guidance for cutoff [...] Standards of Medical Care in Diabetes 2016, [place] [employer]. Diabetes Care. 2016.39(Suppl 1). 6 0.69 8.9 11/05/23 0418 142 112 23 96 Comment: The [place] [employer] (ADA) provides guidance for cutoff [...] Standards of Medical Care in Diabetes 2016, [place] [employer]. Diabetes Care. 2016.39(Suppl 1). 5 0.64 7.6 11/04/23 0826 145 112 24 79 Comment: The [place] [employer] (ADA) provides guidance for cutoff [...] Standards of Medical Care in Diabetes 2016, [place] [employer]. Diabetes Care. 2016.39(Suppl 1). 4 0.70 7.7 TESTS REVIEWED: I personally reviewed and interpreting and findings were: CXRay: Chest x-ray was last done on 10/31/2023 EK10/31/2023 @ [facility] NORMAL SINUS RHYTHM ANTEROLATERAL T WAVE [...] 1:39 PM 12/19/2023 documented in this encounter [facility] 12-19-2023 Note Pre-Admission Testin g Consultation Johnny Devine, [id number] 33 year old Male 12/19/2023 Consult placed [...] intervention warranted . Patient with Lamaar from [facility] facility during this appointment Patient is here for pre-admission optimization and education prior to surgery. RECENT ILLNESS: Serious illness or hospitalization within the last six months. Yes 10/28/2023 HOSPITAL COURSE: Johnny Devine is a 33 year old male with developmental delay and no PSH who presents as a transfer to [facility] from [facility] for further management of small bowel obstruction. Given patient's baseline cognitive status, NGT difficult to maintain. He was admitted to the [facility] under care of general surgery and was taken to the OR the following morning for diagnostic laparoscopy. Intra-operative findings demonstrated no adhesins, no apparent hernias, dilated small/large bowel, redundant sigmoid c/f volvulus, easily reduced. After recovering in the PACU, he was taken to the [facility] with NGT in place. Patient arrived to [facility] with 8 Fr pediatric haskins catheter in [...] in home regimen. Stable for discharge to fdc. Neurology Recommendations on Discharge: - Discharge on [...] SERVICES; Ser (more content not included)... [facility] 12-03-2023 Note HNO ID: [id number] Author: OSCAR RUIZ MD Service: ? Author [...] from ongoing urologic care. Oscar Ruiz MD [facility] 12-03-2023 Note Patient Outreach (UR OLMN) JOHNNY DEVINE ([id number]) 1990 M Date Time Provider Department 12/03/23 RAFAEL GIRALDO During your visit today, we recorded the following information about you: Allergies As of Date: 12/03/2023 Noted Allergy Reaction BIAXIN (CLARITHROMYCIN) 05/04/2022 14 - Other: See Comments Comments: caregiver does not know Date Reviewed: 12/03/2023 Reviewed by: Sukhdeep Barton OCCA - Fully Assessed Visit Diagnosis:Screening for genitourinary condition [Z13.89] Order(s):URINALYSIS, REFLEX MICROSCOPIC [ANK7621] Order #: [id number] Prescriptions as of 12/06/2023 - cloNIDine HCl [...] 12/03/2023 Noted Resolved SBO (small bowel obstruction) ([facility]) [K56.609] 10/28/2023 10/31/2023 Bipolar disorder (HCC) [F31.9] 09/16/2018 Hypothyroidism [E03.9] 09/16/2018 Obsessive-compulsive disorder [F42.9] 09/16/2018 Moderate intellectual disability [F71] 09/16/2018 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 Author Type: Nurse Practitioner Type: Progress Notes Filed: 11/28/2023 10:19 Note Text: [facility] Clinic Date: November 28, 2023 Johnny Devine 33 year old male CHIEF COMPLAINT: Patient presents for follow up from surgery. HPI: Here for follow up after diagnostic laparotomy on 10/29/[address] Beffa. Patient also underwent a dorsal slit procedure with urology on 10/30/2023 for paraphimosis. Patient with a resident buyer today to discuss his postoperative course since [...] for further surgery discussion Victoria Sanchez, MSN, FITNESS TRAINER-TRAVELING SECRETARY November 28, 2023 [facility] 11-28-2023 History of Present illness Narrative [facility] Clinic Date: November 28, 2023 Johnny Devine 33 year old male CHIEF COMPLAINT: Patient presents for follow up from surgery. HPI: Here for follow up after diagnostic laparotomy on 10/29/[address] Robin. Patient also underwent a dorsal slit procedure with urology on 10/30/2023 for paraphimosis. Patient with a resident buyer today to discuss his postoperative course since [...] for further surgery discussion Victoria Sanchez, MSN, FITNESS TRAINER-TRAVELING SECRETARY November 28, 2023 documented in this encounter [facility] 11-28-2023 Nurse Note What is the reason for your visit today? Post op Who is your referring physician? Dr. Sanchez Are you having poor oral intake? NO Have you had unintentional weight loss of 15 lbs/7 Kg in the last 3-6 months? NO Bowels: regular Wound: clean & dry Temperature: No Drains: No documented in this encounter [facility] 11-12-2023 Miscellaneous Notes [facility] care facility and spoke to Rosy. Patient [...] Cris Dinh, RN documented in this encounter [facility] 11-07-2023 Note HNO ID: [id number] Author: HERMAN SALOMON RN Service: Care Management Author Type: Registered Nurse Type: Care Mgt Progress Note Filed: 11/07/2023 14:56 Note Text: CARE MANAGEMENT DISCHARGE NOTE SERVICE DATE: November 07, 2023 SERVICE TIME: 2:56 PM Admission Date: 10/28/2023 LOS: 10 days Discharge Arrangement Discharge Arrangement: Senior Living Services Arranged Medical Services: Other: See Comment (no services indicated) Caregiver Assessment Caregiver is ready, willing and able to meet the patient's needs as recommended by the inter-professional team: Yes Name of Caregiver: [facility] Transportation Arrangements Transportation Arrangements: Car Destination: Senior Living Additional Information: Patient d/c ready to Senior Living with no skilled needs identified. Patient and bedside RN aware of plan. [facility] to transport patient home via private auto. SIGNATURE: Herman Salomon RN PATIENT NAME: Johnny Devine DATE: November 07, 2023 TIME: 2:55 PM CONTACT #: [phone] [facility] 11-07-2023 Note HNO ID: [id number] Author: GIA MULLER MD Service: General Surgery [...] * DORSAL SLIT FORESKIN EXCEPT - General [facility] 11-07-2023 Note HNO ID: [id number] Author: MAYANK READ, MIRIAM Service: Nursing Author Type: Registered Nurse Type: Nursing Progress Note Filed: 11/07/2023 09:25 Note Text: Paged primary team of low BP. [facility] 11-06-2023 Note HNO ID: [id number] Author: ALEXANDRA CHAIREZ MD Service: General Surgery [...] Chairez MD General Surgery Resident Екатерина(Jacob No): [phone] Grundfest(Boy Alcaraz Petro): [phone] After 6PM + Weekends: [phone] INTERVAL EVENTS / PERTINENT REVIEW OF [...] * DORSAL SLIT FORESKIN EXCEPT - General [facility] 11-06-2023 Note HNO ID: [id number] Author: BERNARDA SUE MD Service: Neurology General [...] DATE: November 06, 2023 TIME: 12:26 AM [facility] 11-05-2023 Note HNO ID: [id number] Author: LEEANN TELLES MD Service: General Surgery [...] as appropriate, non-distended Leeann Telles MD PGY1 [facility] 11-05-2023 Note HNO ID: [id number] Author: JUAQUIN KRISHNAMURTHY RN Service: Nursing Author [...] to bedside, Valium ordered at this time. [facility] 11-05-2023 Note HNO ID: [id number] Author: HERMAN SALOMON RN Service: Care Management Author Type: Registered Nurse Type: Care Mgt Progress Note Filed: 11/05/2023 11:21 Note Text: CARE MANAGEMENT PROGRESS NOTE SERVICE DATE: 11/05/2023 SERVICE TIME: 11:20 AM LOS: 8 days [place] of Choice Explained: [place] of Choice Given: No Reason Not Given: No placements necessary Anticipated # of Days Until Discharge: 4 Needs Prior to Discharge: Needs Prior to Discharge: To Be Determined Post-Acute Discharge Plan: Patient from [facility]. Plan is to return at discharge. supervisor salvage is Magi [phone]. Per Magi, she will provide transport at discharge. Magi is requesting an abdominal binder at discharge due to patient's history of self-injurious behavior. 33 year old male POD #7 diagnostic laparoscopy. Patient is non-verbal, developmental delay and lives in fdc. No skilled needs anticipated. SIGNATURE: Hemran Salomon RN PATIENT NAME: Johnny Devine DATE: November 05, 2023 TIME: 11:19 AM PAGER/CONTACT #: [phone] [facility] 11-05-2023 Note HNO ID: [id number] Author: CONNIE CAICEDO MD Service: Neurology General [...] Dr. Almanzar. Connie Caicedo MD 5:49 PM [facility] 11-05-2023 Note HNO ID: [id number] Author: ALEXANDRA CHAIREZ MD Service: General Surgery [...] Chairez MD General Surgery Resident Екатерина(Jacob No): [phone] Grundfest(Kieran, Boy, Misti): [phone] After 6PM + Weekends: [phone] INTERVAL EVENTS / PERTINENT REVIEW OF SYSTEMS: [...] * DORSAL SLIT FORESKIN EXCEPT - General [facility] 11-04-2023 Note HNO ID: [id number] Author: ALEXANDRA CHAIREZ MD Service: General Surgery [...] Neuro: continue lorazepam TID per neurology(clarified with [facility] and patient has been [...] Chairez MD General Surgery Resident Екатерина(Jacob No): [phone] Grundfest(Boy Alcaraz, Misti): [phone] After 6PM + Weekends: [phone] INTERVAL EVENTS / PERTINENT REVIEW OF SYSTEMS: [...] * DORSAL SLIT FORESKIN EXCEPT - General [facility] 11-03-2023 Note HNO ID: [id number] Author: ZAIRA RBOERT MD Service: General Surgery Author Type: Resident [...] Dispo: RNF, pending diet and dispo planning aZira Robert MD General Surgery (Res) November 03, 2023, 10:29 AM P: [phone] INTERVAL EVENTS / PERTINENT REVIEW OF SYSTEMS: [...] * DORSAL SLIT FORESKIN EXCEPT - General [facility] 11-03-2023 Note HNO ID: [id number] Author: LYLE TRINIDAD RN Service: ? Author Type: Registered Nurse Type: Progress Notes Filed: 11/03/2023 22:32 Note Text: This automobile and property underwriter was called by another nurse that pt had a witnessed 20 seconds of seizure episode. AMET called and team notified and orders given. [facility] 11-02-2023 Note HNO ID: [id number] Author: LEEANN TELLES MD Service: General Surgery [...] as appropriate, non-distended Leeann Telles MD PGY1 [facility] 11-02-2023 Note HNO ID: [id number] Author: HERMAN SALOMON, MIRIAM Service: Care Management Author Type: Registered Nurse Type: Care Mgt Progress Note Filed: 11/02/2023 11:43 Note Text: CARE MANAGEMENT WEEKEND PLANNING NOTE DISCHARGE OR POSSIBLE DISCHARGE Date/Time: TBD Disposition: Senior Living Transport: Car /Magi Other Concerns: Patient from [facility]. Plan is to return at discharge. supervisor salvage is Magi [phone]. Per Magi, she will provide transport at discharge. She will need to be contacted if patient ready to discharge over the weekend. Magi is requesting an abdominal binder at discharge due to patient's history of self-injurious behavior. 33 year old male POD #4 diagnostic laparoscopy. Patient is non-verbal, developmental delay and lives in fdc. Weekend Waste Removalist Pager #: Please see Treatment Team for Care Management Weekend/Holiday coverage. SIGNATURE: Herman Salomon RN PATIENT NAME: Johnny Devine DATE: November 02, 2023 TIME: 11:42 AM PAGER/CONTACT #: [phone] [facility] 11-02-2023 Note HNO ID: [id number] Author: FRANCK MAGDALENO MD Service: General Surgery [...] Andrews MD Acute Care Surgery Resident PAGER [phone] INTERVAL EVENTS / PERTINENT REVIEW OF SYSTEMS: [...] * DORSAL SLIT FORESKIN EXCEPT - General [facility] 11-01-2023 Note HNO ID: [id number] Author: ANA LUISA FARR MD Service: General [...] , appreciate Recs (below); haskins out at [facility], f/u TOV - Recommend applying [...] Farr MD Acute Care Surgery Resident PAGER [phone] INTERVAL EVENTS / PERTINENT REVIEW OF SYSTEMS: [...] * DORSAL SLIT FORESKIN EXCEPT - General [facility] 10-31-2023 Note HNO ID: [id number] Author: ANA LUISA FARR MD Service: General [...] Farr MD Acute Care Surgery Resident PAGER [phone] INTERVAL EVENTS / PERTINENT REVIEW OF SYSTEMS: [...] Drain Duration Indwelling Urinary Catheter 10/30/23 0811 [facility] Haskins 10 Fr 1 day SURGERY/PROCEDURE: Procedure(s) and Anesthesia Type: * DORSAL SLIT FORESKIN EXCEPT - General [facility] 10-31-2023 Note HNO ID: [id number] Author: HEAVEN CAMACHO MD Service: Urology Author [...] clinical indicators: x Hypophosphatemia Other, please specify [facility] 10-31-2023 Note HNO ID: [id number] Author: BEATRIZ MEHTA MD Service: General Surgery [...] Mehta MD General Surgery Resident General Surgery: [id number] On nights (6 pm to 6 am) and on Weekends/Holidays, please page the on-call pager: [phone] 10/31/23 2:39 AM [facility] 10-31-2023 Note HNO ID: [id number] Author: JUAQUIN KRISHNAMURTHY RN Service: Nursing Author Type: Registered Nurse Type: Progress Notes Filed: 10/31/2023 01:48 Note Text: Messaged Night team Dr. Mehta about haskins drainage turning bloody. Patient is asleep and comfortable [facility] 10-30-2023 Note HNO ID: [id number] Author: JEREMIE JOAQUIN MD Service: ? Author [...] October 30, 2023 TIME: 8:11 AM CSN: [id number] [facility] 10-30-2023 Note HNO ID: [id number] Author: JEREMIE JOAQUIN MD Service: ? Author Type: Anesthesiologist Type: Anesthesia Procedure Notes Filed: 10/30/2023 11:59 Note Text: ANESTHESIOLOGY PROCEDURE NOTE Airway General Information Procedure Start Time/Medication Administration: 10/30/2023 7:46 AM Patient location during procedure: OR Timeout Performed Pre-procedure: timeout performed Consent Obtained: Yes Patient identity confirmed: arm band, care athletic team physician and patient Staffing Anesthesiologist: Jeremie [...] Successful intubation technique: video laryngoscopy Devices used: MCTX Properties Endotracheal tube insertion site: oral Blade size: [...] gastric contents in oropharynx. SIGNATURE: Nilay Zimmer APRN.AUTOMOTIVE SERVICES MANAGER PATIENT NAME: Johnny Devine DATE: October 30, 2023 TIME: 7:58 AM CSN: [id number] [facility] 10-30-2023 Note HNO ID: [id number] Author: FRANCK MAGDALENO MD Service: General Surgery [...] Andrews MD Acute Care Surgery Resident PAGER [phone] INTERVAL EVENTS / PERTINENT REVIEW OF SYSTEMS: [...] <1 day Indwelling Urinary Catheter 10/30/23 0130 [facility] 8 Fr <1 day SURGERY/PROCEDURE: Procedure(s) and Anesthesia Type: * DORSAL SLIT FORESKIN EXCEPT - General [facility] 10-29-2023 Note HNO ID: [id number] Author: HERMAN SALOMON RN Service: Care Management [...] by: Per Department Practice Potential Transition Plans Senior Living/Supervised Living Advance Directives Current Advance Directive: Other Document: See Comment (Legal guardian) In Chart: Yes Up To Date and Valid: Yes Current Living Arrangements and Support Lives with: Other person(s) [facility] Type of Residence: Senior Living Care Facility Name: [facility] Support: Home care staff, Family members How do you manage to accomplish the following: Independent: Ambulation Dependent: Bathe/Shower;Dress;Meals/Meal Prep;Going to the bathroom;Medication Management;Transportation to appointments/community Current Services/Equipment Current Post-Acute Service(s): None [place] of Choice Explained: [place] of Choice Given: No Reason Not Given: No placements necessary Are you interested in bedside delivery of your medications? No Discharge Planning Participant(s): Other person(s);Guardian Name/Relationship: Magi/Director Payer Patient/Family Comments: Caregiver Assessment: Caregiver is ready, willing and able to meet the patient's needs as recommended by the inter-professional team: Yes Name of Caregiver: [facility] Transport at Discharge: Transportation Arrangements: Car Destination: Home Needs Prior to Discharge: Needs Prior to Discharge: To Be Determined Post-Acute Discharge Plan: 33 year old male POD #0 diagnostic laparoscopy. Patient is non-verbal, developmental delay and lives in fdc. CM met with patient's legal guardian Delbert and canvas goods supervisor Magi at bedside. Plan is to return to fdc at discharge. Per Magi [phone] ext. [phone], she will provide transport. Magi is requesting an abdominal binder at discharge due to patient's history of self-injurious behavior. CM will continue to follow for transitional care needs. SIGNATURE: Herman Salomon RN PATIENT NAME: Johnny Devine DATE: October 29, 2023 TIME: 4:00 PM CONTACT #: [phone] [facility] 10-29-2023 Note HNO ID: [id number] Author: KENZIE MORE APRN.AUTOMOTIVE SERVICES MANAGER Service: ? Author Type: Nurse Video Editing Internship Type: Anesthesia Procedure Notes Filed: 10/29/2023 10:18 Note Text: ANESTHESIOLOGY PROCEDURE NOTE Airway General Information Procedure Start Time/Medication Administration: 10/29/2023 10:00 AM Patient location during procedure: OR Timeout Performed Pre-procedure: timeout performed Consent Obtained: Yes Patient identity confirmed: arm band, care athletic team physician and family Staffing AUTOMOTIVE SERVICES MANAGER: Kenzie More APRN.AUTOMOTIVE SERVICES MANAGER Indications and Patient Condition Indications for airway management: anesthesia Preoxygenated: yes anesthesia circuit Method: rapid sequence Difficult Mask: No Final Airway Details Final airway type: endotracheal airway Final Endotracheal Airway: ETT Cuffed: yes Successful intubation technique: video laryngoscopy Devices used: MCTX Properties Endotracheal tube insertion site: oral Blade: Raj Blade size: #4 ETT size (mm): 7.5 Placement verified by: capnometry Cormack-Lehane Classification: grade I - full view of glottis Number of attempts at approach: 1 Failed airway: no Unrecognized esophageal intubation: no Airway not difficult SIGNATURE: Kenzie More APRN.AUTOMOTIVE SERVICES MANAGER PATIENT NAME: Johnny Devine DATE: October 29, 2023 TIME: 10:17 AM CSN: [id number] [facility] 10-29-2023 Note HNO ID: [id number] Author: ANA LUISA FARR MD Service: General [...] Farr MD Acute Care Surgery Resident PAGER [phone] INTERVAL EVENTS / PERTINENT REVIEW OF SYSTEMS: [...] Anesthesia Type: * EXPLORATORY LAPAROTOMY - General [facility] 10-28-2023 History of Past i llness Narrative Problem Noted Date Diagnosed Date Resolved Date SBO (small bowel obstruction) 10/28/2023 10/31/2023 documented as of this encounter (statuses as of 11/12/2023) [facility]03-10-[facility] History of Past illness Narrative* Problem Noted Date Diagnosed Date Resolved Date SBO (small bowel obstruction) 10/28/2023 10/31/2023 documented as of this encounter (statuses as of 11/29/2023) [facility]03-10-20[facility] History of Past illness Narrative* Problem Noted Date Diagnosed Date Resolved Date SBO (small bowel obstruction) 10/28/2023 10/31/2023 documented as of this encounter (statuses as of 12/04/2023) [facility]-10[facility]20[facility] History of Past illness Narrative* Problem Noted Date Diagnosed Date Resolved Date SBO (small bowel obstruction) 10/28/2023 10/31/2023 documented as of this encounter (statuses as of 12/06/2023) [facility]11-27-2023 Hospital Discharge instructions* Discharge Instructions* Yobany [...] be sent through Care Everywhere. * Bradycardia ([place]) documented in this [id number] Emergency department Note* Leila Cifuentes RN - 07/16/2023 8:01 AM EST Permission treat given from Cate legal guardian [id number] Emergency department Note* Leila Cifuentes RN - 07/16/2023 8:01 AM EST Permission treat given from Cate legal guardian documented in this [id number] Evaluation + Plan note Diagnostic Tests Pending * [place] Level 07/04/23 [facility] Telephone encounter Note* Telephone Encounter - Shanna Sauceda RN - 06/26/2023 11:14 AM EST Informed Consent for dental surgery & Anesthesia consent obtained and scanned into [employer]. Scheduled for surgery 07/16/2023. [id number] Miscellaneous Notes* Telephone Encounter - Shanna Sauceda RN - 06/26/2023 11:14 AM EST Informed Consent for dental surgery & Anesthesia consent obtained and scanned into EPIC. Scheduled for surgery 07/16/2023. documented in this [id number] Evaluation note* PSE Appt H&P - Lacey Wilson MD - 06/22/2023 3:10 PM EDT Presurgical Evaluation (Pre-Admission Testing) Consultation Johnny Devine, [id number] 32 year old Male 06/22/2023 Consult placed [...] RESTORATIONS; Surgeon: Harpreet Mccurdy DDS; Location: [facility]; Service: Dental ANESTHESIA REVIEW OF [...] - referring and communicating with other health youth care worker (when not separately reported) - documenting clinical information in the electronic or other health record - independently interpreting results (not separately reported) and communicating results to the patient/family/caregiver - care coordination (not separately reported). Interviewer signature: Lacey Wilson MD 3:10 PM 06/22/2023 [id number] Miscellaneous Notes* PSE Appt H&P - Lacey Wilson MD - 06/22/2023 3:10 PM EDT Presurgical Evaluation (Pre-Admission Testing) Consultation Johnny Devine, [id number] 32 year old Male 06/22/2023 Consult placed [...] RESTORATIONS; Surgeon: Harpreet Mccurdy DDS; Location: [facility]; Service: Dental ANESTHESIA REVIEW OF [...] - referring and communicating with other health youth care worker (when not separately reported) - documenting clinical information in the electronic or other health record - independently interpreting results (not separately reported) and communicating results to the patient/family/caregiver - care coordination (not separately reported). Interviewer signature: Lacey Wilson MD 3:10 PM 06/22/2023 documented in this [id number] Miscellaneous Notes* Telephone Encounter - [place] [facility] [place]18/[place] 3:18 PM EDT Cate, aunt, was leaving Dr Morales a message: At this time, the family would like to hold off on cataract surgery. Fyi * Telephone Encounter - Grupo Morales MD - 05/18/2022 2:23 PM EDT Called today and yesterday after clinic to discuss. No answer, left msg to call back and leave a message. * Telephone Encounter - [employer] - 05/17/2022 3:31 PM EDT Pt's aunt returning a call to Dr. Morales to discuss eye care for Johnny. Please try to reach her again at [phone] (Cate Tin) documented in [facility] Miscellaneous Notes* Telephone Encounter - [employer] - 05/08/2022 9:01 AM EDT Nurse from [facility] where he resides called for [facility] for his file. Attn: Melanie Pickard [phone]. Surgery schedulers name and # was provided. documented in [facility]-2022 Miscellaneous Notes* Telephone Encounter - Grupo [...] ADLs currently. He currently lives in a fdc and has a significant history of self-injurious behaviors including banging his head on things and punching his eyes. She believes cataract tarun result of trauma, and I agree with her. These behaviors still happen on a weekly basis, and whilethere's 12/03 supervision at the fdc, he has a lot of private time [...] week. Grupo Morales MD documented in [facility] History of Present illness Narrative* Angel [...] 04, 2022 10:56 AM documented in this encounterPrem[facility]-10-2022 Telephone encounter Note * Telephone Encounter [...] Work: Due Mammogram: N/A FIT: Not due [id number] Miscellaneous Notes* Telephone Encounter - Jose Miguel [...] of senile cataract documented [facility] encounter [facility]* Diagnosis Caries- Primary Unspecified dental [...] prepuce and phimosis documented in this [facility]* Diagnosis Screening for genitourinary condition Screening for other and unspecified genitourinary condition documented [facility] this [facility]* Diagnosis Caries- Primary Unspecified dental caries Pre-op testing- Primary Preoperative examination, unspecified Body mass index (BMI) 31.0-31.9, adult Caries Unspecified dental caries [facility] Diagnosis Sigmoid volvulus (HCC)- Primary Volvulus documented [facility]* Diagnosis Caries- Primary Unspecified dental caries Pre-op testing- Primary Preoperative examination, unspecified Body mass index (BMI) 31.0-31.9, adult Caries Unspecified dental caries [facility] Diagnosis Caries- Primary Unspecified dental caries [facility] Diagnosis Alteration of awareness- Primary [facility]* Diagnosis Caries- Primary Unspecified dental caries documented in this encounter [facility] Work Phone: Evaluation note* Diagnosis Alteration of awareness- Primary [facility] Narrative No data available for this section [facility] No data available for this section [facility] No data available for this section [facility] Summary Purpose Family History No Family History [...] Diagnoses Caries Tio-Harpreet England, DDS [address] [place] [address] [facility] PRE SURGICAL EVAL [address] [place] [address] Referral ID Status Reason Start Date Expiration Date V isits Requested Visits Authorized [id number] Pending Review 05/25/2023 05/25/2024 1 1 Scheduling Instructions Your surgical team will reach out to you to schedule a preadmission testing appointment. Question Answer Reason for consult? Recommended PSE Risk Score Specialty Diagnoses / Procedures Referred By Contmigdalia t Referred To Contact Radiology Diagnoses Pre-op exam Procedures XR CHEST PA+LAT 2 VIEWS Franc Beyer MD [address] [place] [address] [facility] DIAGNOSTIC RADIOLOGY [address] [place], [place] [id number] Referral ID Status Reason Start Date Expiration Date Visits Re quested Visits Authorized [id number] Closed 06/22/2023 06/21/2024 1 1 Specialty Diagnoses / Procedures Referred By Contac t Referred To Contact Cardiology Diagnoses Bradycardia History of autism Nonverbal Moderate intellectual disability Yobany Smith PA-C [address] [place] [address] [facility] CARDIOLOGY HV [address] [place] [address] Referral ID Status Reason Start Date Expiration Date V isits Requested Visits Authorized [id number] Pending Review 07/16/2023 07/16/2024 3 3 Scheduling Instructions Please call the [facility] at [phone] to schedule an appointment if one was not made for you today. Question Answer What is the primary reason for consult? Abnormal EKG [13] - nonverbal patient, asymptomatic bradycardia on lopressor At what location would you like the patient to be seen? [place] ([address]) Specialty Diagnoses / Procedures Referred By Contac t Referred To Contact Colon and Rectal Surgery Diagnoses Sigmoid volvulus (HCC) Procedures CONSULT TO COLO-RECTAL SURGERY OFFICE/OUTPATIENT [facility] 60 MINUTES Victoria Sanchez APRN.TRAVELING SECRETARY [address] [place], [place] [id number] Juventino Fairbanks MD [address] [id number] Referral ID Status Reason Start Date Expiration Date Visits Requested Visits Authorized [id number] Authorized PCP Requested Referral 12/20/2023 12/19/2024 1 1 Specialty Diagnoses / Procedures Referred By Contac t Referred To Contact Anesthesiology Diagnoses Harpreet Anand DDS [address] [place] [id number] [facility] PRE ADMISSION TESTING [address] [place] [address] Referral ID Status Reason Start Date Expiration Date V isits Requested Visits Authorized [id number] Authorized 10/10/2023 10/10/2024 1 1 Scheduling Instructions [...] PA+LAT 2 VIEWS Franc Beyer MD [address] [place] [address] [facility] DIAGNOSTIC RADIOLOGY [address] [place] [address] Referral ID Status Reason Start Date Expiration Date Visits Re quested Visits Authorized [id number] Closed 06/22/2023 06/21/2024 1 1 Reason Onset Date Comments Pre-surgical Evaluation 06/26/2023 Informed Consent for dental surgery & Anesthesia consent obtained Reason Comments bradycardia Low HR (33) Specialty Diagnoses / Procedures Referred By Johan mcfadden Referred To Contact Ambulatory Surgery Diagnoses Caries Caries [K02.9] Procedures UNLISTED PROCEDURE, DENTOALVEOLAR STRUCTURES ANESTHESIA, INTRAORAL PROC, W/BX; NOS DENTAL RESTORATIONS Harpreet Mccurdy, DDS [address] [place] [address] [facility] [address] [place] [phone] Phone: [phone] Referral ID Status Reason Start Date Expiration Date Visits Re quested Visits Authorized [id number] 3 3 Reason Comments Engineer Process - Other Reason Comments Post Op Reason Onset Date Comments Pre-surgical Evaluation 12/25/2023 DD adult dental restorations 12/27 under [facility] at [place]. PAT completed - consent request sent to main - see future encounter for results. PAT RN spoke to [facility], confirmed [facility], [place] address, and 0900 arrival time Reason Onset Date Comments Pre-surgical Evaluation 12/25/2023 Anesthes ia Attestaion for dental surgery scanned in vice president media relationshuman resources communications manager Diagnoses / Procedures Referred By Johan mcfadden Referred To Contact Ambulatory Surgery Diagnoses Caries Caries [[id number]] Procedures UNLISTED PROCEDURE, DENTOALVEOLAR STRUCTURES ANESTHESIA, INTRAORAL PROC, W/BX; NOS DENTAL RESTORATIONS Mari Traore DMD [address] [place], [place] [phone] [facility] [address] [place] [phone] Phone: [phone] Referral ID Status Reason Start Date Expiration Date Visits Re quested Visits Authorized [id number] 3 3 Reason Comments Seizures Reason Onset Date Comments Medical Record Review 12/16/2024 Care Teams (unrecognized sec tion and content) Police Magistrate Relationship Specialty Start Date End Date Aileen Corcoran DDS [address] [place], [place] [phone] Resident Dentistry 08/20/20 Police Magistrate Relationship Specialty Start Date End Date Aileen Corcoran DDS [address] [place] [address] Resident Dentistry 08/20/20 Police Magistrate Relationship Specialty Start Date End Date Aileen Corcoran DDS [address] [place], [place] [phone] Resident Dentistry 08/20/20 Police Magistrate Relationship Specialty Start Date End Date Aileen Corcoran DDS [address] [place], [place] [phone] Resident Dentistry 08/20/20 Police Magistrate Relationship Specialty Start Date End Date Aileen Corcoran DDS [address] [place], [place] [address] Resident Dentistry 08/20/20 Police Magistrate Relationship Specialty Start Date End Date Aileen Corcoran DDS [address] [place], [place] [phone] Resident Dentistry 08/20/20 Police Magistrate Relationship Specialty Start Date End Date Aileen Corcoran DDS [address] [place] [address] Resident Dentistry 08/20/20 Police Magistrate Relationship Specialty Start Date End Date Aileen Corcoran DDS [address] [place] [address] Resident Dentistry 08/20/20 Police Magistrate Relationship Specialty Start Date End Date Aileen Corcoran DDS [address] [place] [address] Resident Dentistry 08/20/20 Police Magistrate Relationship Specialty Start Date End Date Aileen Corcoran DDS [address] [place] [address] Resident Dentistry 08/20/20 Police Magistrate Relationship Specialty Start Date End Date Aileen Corcoran DDS [address] [place] [address] Resident Dentistry 08/20/20 Police Magistrate Relationship Specialty Start Date End Date Aileen Corcoran DDS [address] [place] [address] Resident Dentistry 08/20/20 Police Magistrate Relationship Specialty Start Date End Date Aileen Corcoran DDS [address] [place] [address] Resident Dentistry 08/20/20 Ling Coffman APRN-CNP [address] [place] [address] SOLDER DEPOSIT OPERATOR Anesthesiology 01/19/24 Police Magistrate Relationship Specialty Start Date End Date Aileen Corcoran DDS [address] [place] [address] Resident Dentistry 08/20/20 Ling Coffman APRN-CNP [address] [place] [address] SOLDER DEPOSIT OPERATOR Anesthesiology 01/19/24 Source Comments (unrecognize d section and content) In the event this informatio n is protected by the [facility] Confidentiality of Alcohol and Drug Abuse Patient Records regulations: The Federal rules restrict any use of the information to criminally investigate or prosecute any alcohol or drug abuse patient.[facility] the event this information is protected by the Federal Confidentiality of Alcohol and Drug Abuse Patient Records regulations: The Federal rules restrict any use of the information to criminally investigate or prosecute any alcohol or drug abuse patient.[facility] Hospital[facility] the event this information is protected by the Federal Confidentiality of Alcohol and Drug Abuse Patient Records regulations: The Federal rules restrict any use of the information to criminally investigate or prosecute any alcohol or drug abuse patient.[facility] Hospital[facility] the event this information is protected by the Federal Confidentiality of Alcohol and Drug Abuse Patient Records regulations: The Federal rules restrict any use of the information to criminally investigate or prosecute any alcohol or drug abuse patient.[facility] Hospital[facility] the event this information is protected by the Federal Confidentiality of Alcohol and Drug Abuse Patient Records regulations: The Federal rules restrict any use of the information to criminally investigate or prosecute any alcohol or drug abuse patient.[facility] Hospital[facility] the event this information is protected by the Federal Confidentiality of Alcohol and Drug Abuse Patient Records regulations: The Federal rules restrict any use of the information to criminally investigate or prosecute any alcohol or drug abuse patient.[facility] Hospital[facility] the event this information is protected by the Federal Confidentiality of Alcohol and Drug Abuse Patient Records regulations: The Federal rules restrict any use of the information to criminally investigate or prosecute any alcohol or drug abuse patient.[facility] HospitalIn the event this information is protected by the Federal Confidentiality of Alcohol and Drug Abuse Patient Records regulations: The Federal rules restrict any use of the information to criminally investigate or prosecute any alcohol or drug abuse patient.[facility] Hospital[facility] the event this information is protected by the Federal Confidentiality of Alcohol and Drug Abuse Patient Records regulations: The Federal rules restrict any use of the information to criminally investigate or prosecute any alcohol or drug abuse patient.[facility] Hospital[facility] the event this information is protected by the Federal Confidentiality of Alcohol and Drug Abuse Patient Records regulations: The Federal rules restrict any use of the information to criminally investigate or prosecute any alcohol or drug abuse patient.[facility] (unrecognized sect ion and content) No Status Records FoundNo Status Records FoundNo Status Records FoundNo Status Records FoundNo Status Records FoundNo Status Records Found INFORMATION SOURCE (unrecogn ized section and content) DATE CREATED AUTHOR 01/26/2023 [facility] DATE CREATED AUTHOR AUTHOR'S ORGANIZ ATION 01/13/2024 [facility] DATE CREATED AUTHOR AUTHOR'S ORGANIZ ATION 02/15/2024 [facility] [facility] DATE CREATED AUTHOR AUTHOR'S ORGANIZ ATION 02/22/2024 [facility] DATE CREATED AUTHOR AUTHOR'S ORGANIZ ATION 12/04/2024 [facility] DATE CREATED AUTHOR AUTHOR'S ORGANIZ ATION 12/17/2024 [facility] Scheduled Active and Recently Administ ered [...] socket sites after extraction) lidocaine-epinephrine (XYLOCAINE) 2 %-1:[id number] injection (CANCELED) PRN, Starting on Sun12/28/23 at [...] BE BASED ON THE PRIMARY CLINICAL RECORDS. [employer] [facility]. provides no warranty or guarantee of the accuracy or completeness of information in this document.
[2025-02-03 10:15] LABS: Valproic Acid 81.6 ug/mL (50.0-100.0)
== END 2025-02-03 06:52 | disposition home or self-care (01) ==
LOC: LAB 06:51
PROVIDERS: PCP Family Medicine; Visit Provider Family Medicine
DX: G40.909 Epilepsy, unspecified, not intractable, without status epilepticus (principal); F42.9 Obsessive-compulsive disorder, unspecified; F31.9 Bipolar disorder, unspecified; F90.9 Attention-deficit hyperactivity disorder, unspecified type; Z79.899 Other long term (current) drug therapy
CPT/HCPCS: 36415; 80164

== ENCOUNTER 2025-02-05 09:04 | Outpatient (OUT) | payer MEDICARE, MEDICAID, SELFPAY ==
--- OUTSIDE RECORDS SUMMARY | 2025-02-05 09:08 | XMS_ITS | Encounter Summary ---
Author Organization [facility] Address [address] [place] [address] Care Team Providers Care Erp Manager Name Role Phone Aileen Corcoran DDS Unavailable [phone] Ling Coffman Unavailable [phone] Encounter Details Date Type Department Care Team (Late st Contact Info) Description 08/19/2020 Abstract PATIENT ACUITY SCORE Social History Tobacco Use Types Packs/Day Years Used Date Smoking Tobacco: Never Smokeless Tobacco: Never Alcohol Use Standard Drinks/Week Comments Never 0 (1 standard drink = 0.6 oz pur e alcohol) AUDIT-C Answer Date Recorded Q1: How often do you have a drink containing alc ohol? Never 07/13/2020 Average Number of Drinks Not on file 020 Frequency of Binge Drinking Not on file 06/21 Substance Use Types Use/Week Comments Never Sex and Gender Information Value Date Recorded Sex Assigned at Not on file Legal Sex Male 9:36 AM EST Gender Identity Not on file Sexual Orientation Not on file documented as of this encounter Plan of Treatment Not on file documented as of this encounter Visit Diagnoses Not on filedocumented in this encounter Care Teams Erp Manager Relationship Specialty Start Date End Date Aileen Corcoran DDS [address] [place] [address] Resident Dentistry 08/20/20 Ling Coffman APRN-CNP [address] [place] [address] VALUE ANALYSIS COORDINATOR Anesthesiology 01/19/24 documented as of this encounter
--- OUTSIDE RECORDS SUMMARY | 2025-02-05 09:08 | XMS_ITS | Clinical Summary ---
Author Organization [facility] Address [address] [place] [address] Care Team Providers Care Director Of Early Childhood Education Name Role Phone Aileen Corcoran DDShira Primary [...] topic Insurance MEDICARE MEDICAID [place] Care Teams Director Of Early Childhood Education Relationship Specialty Start Date End Date Aileen Corcoran DDS [address] [facility] [place] [address] PCP - General Dentistry 09/21/23
--- OUTSIDE RECORDS SUMMARY | 2025-02-05 09:08 | XMS_ITS | Encounter Summary ---
Author Organization [facility] Address [address] [place] [address] Care Team Providers Care Rig Operator Name Role Phone Aileen Corcoran DDS Unavailable Ling Coffman Unavailable [phone] Encounter Details Date Type Department Care Team (Late st Contact Info) Description 06/27/2021 Abstract PATIENT ACUITY SCORE Social History Tobacco [...] on filedocumented in this encounter Care Teams Rig Operator Relationship Specialty Start Date End Date Aileen Corcoran DDS [address] [place] [address] Resident Dentistry 08/20/20 Ling Coffman APRN-CNP [address] [place] [address] SALES PERSON Anesthesiology 01/19/24 documented as of this encounter
--- OUTSIDE RECORDS SUMMARY | 2025-02-05 09:08 | XMS_ITS | Clinical Summary ---
Author Organization [facility] Address [address] [place] [address] Care Team Providers Care Clearing Distribution Clerk Name Role Phone Unavailable Primary Care Provider [...] drink = 0.6 oz pur e alcohol) [facility] Utilities Answer Date Recorded In the past [...] place to sleep or slept in a senior care (including now)? Patient unable to answer 10/29/2023 [...] of 3 - 19+ 3-dose series) 2011 Medicare Annual Wellness Visit 02/17/2013 Covid-19 Vaccine (2023-2 5 season) 2024 06/06/2023, 06/07/2022, 06/15/2021, Additional history exists Influenza Vaccine (Season Ended) 2025 06/06/2023, 06/07/2022, 06/15/2021, Additional history exists DTaP,Tdap,Td Vaccine (2 - Td or Tdap) 07/10/2029 07/10/[address] [place] [address] MEDICARE [place]ICAID [place]
--- OUTSIDE RECORDS SUMMARY | 2025-02-05 09:08 | XMS_ITS | Clinical Summary ---
Author Organization [facility] Address [address] [place] [address] [place] [address] Care Team Providers Care Reference And Instruction Librarian Name Role Phone Unavailable Primary Care Provider Unavailabl e Allergies Active Allergy Reactions Criticality Noted Date Comments Clarithromycin 12/11/2023 Severe stomach cramps Medications atorvastatin (Lipitor) 10 MG tablet Take 10 mg by mouth Daily Active bisacodyl (Fleet Bisacodyl) 10 MG/30ML enema Insert 10 mg into the rectum 1 (one) time Active guaiFENesin (Humibid 3) 400 MG tablet Take 400 mg by mouth every 4 (four) hours Active cloNIDine (Catapres) 0.2 MG tablet Take 0.2 mg by mouth in the morning and 0.2 mg in the evening and 0.2 mg before bedtime. Active divalproex (Depakote) 125 MG EC tablet Take 4 tablets by mouth in the morning and 4 tablets before bedtime. Do not crush, chew, or split. Active famotidine (Pepcid) 20 MG tablet Take by mouth Active fluticasone (Flonase) 50 MCG/ACT nasal spray Administer 1 spray into each nostril Daily Shake gently. Before first use, prime pump. After use, clean tip and replace cap. Active guanFACINE (Tenex) 2 MG tablet Take 2 tablets by mouth in the morning. Active levothyroxine (Tirosint) 112 MCG capsule Take by mouth Daily before meals Active linaCLOtide (Linzess) 290 MCG capsule Take 290 mcg by mouth in the morning. Take before meals. Do not crush or chew. Active lithium 300 MG capsule Take 300 mg by mouth in the morning and 300 mg at noon and 300 mg in the evening. Take with meals. Active loratadine (Claritin) 10 MG tablet Take by mouth Active LORazepam (Ativan) 2 MG tablet Take 2 mg by mouth every 8 (eight) hours if needed for anxiety Active montelukast (Singulair) 10 MG tablet Take 10 mg by mouth at bedtime Active mupirocin (Bactroban) 2 % ointment Apply 1 application topically in the morning and 1 application in the evening and 1 application before bedtime. Active naltrexone (Depade) 50 MG tablet Take 2 tablets by mouth in the morning and 2 tablets before bedtime. Active denosumab (Prolia) 60 MG/ML solution prefilled syringe Inject 60 mg under the skin 1 (one) time Active QUEtiapine (SEROquel) 100 MG tablet Take 100 mg by mouth in the morning and 100 mg before bedtime. Active risperiDONE (RisperDAL) 3 MG tablet Take 3 mg by mouth in the morning and 3 mg before bedtime. Active sertraline (Zoloft) 50 MG tablet Take 50 mg by mouth in the morning. Active sertraline (Zoloft) 100 MG tablet Take 100 mg by mouth in the morning. Active benzonatate (Tessalon) 100 MG capsule Take 100 mg by mouth 3 (three) times a day as needed for cough Do not crush or chew. Active ondansetron (Zofran) 4 MG tablet Take 1 tablet by mouth every 8 (eight) hours if needed for nausea or vomiting Active buPROPion SR (Wellbutrin SR) 200 MG 12 hr tablet Take 200 mg by mouth in the morning and 200 mg before bedtime. Active Calcium Carb-Cholecalci ferol (Oyster Shell Calcium w/D) 500-5 MG-MCG tablet Take 1 tablet by mouth in the morning and 1 tablet before bedtime. Active Active Problems Problem Noted Date Diagnosed Date Alteration of awareness 01/29/2024 Encounters Date Type Department Care Team Description 12/02/2024 12:40 PM EDT Office Visit [facility] [address] [place] [phone] Cris Walters PA Alteration of awareness (Primary Dx) 12/02/2024 Bamboo flowsheet [facility] [address] [place] [phone] Cris Walters PA from Last 3 Months Social History Tobacco Use Types Packs/Day Years Used Date Smoking Tobacco: Never Smokeless Tobacco: Never Tobacco Cessation:Counseling Given: Not Answered Sex and Gender Information Value Date Recorded Sex Assigned at Not on file Legal Sex Male 8:32 PM EDT Gender Identity Not on file Sexual Orientation Not on file Last Filed Vital Signs Vital Sign Reading Time Taken Comments Blood Pressure 128/82 12/02/2024 12:32 PM EDT Pulse - - Temperature - - Respiratory Rate 16 12/11/2023 10:33 AM EDT Oxygen Saturation - - Inhaled Oxygen Concentration - - Weight 89.8 kg (198 lb) 12/02/2024 12:32 PM EDT Height 167.6 cm (5' 6 ) 12/02/2024 12:32 PM EDT Body Mass Index 31.96 12/02/2024 12:32 PM EDT Plan of Treatment Not on file Insurance [place]ICARE [place]
--- OUTSIDE RECORDS SUMMARY | 2025-02-05 09:08 | XMS_ITS | Encounter Summary ---
Author Organization [facility] Address [address] [place] [address] Care Team Providers Care Paint Stockman Name Role Phone Aileen Corcoran DDS Unavailable Ling Coffman TRANSPORTATION DEPARTMENT HEAD-SCRAP METAL BURNER Unavailable [phone] Encounter Details Date Type Department Care Team (Late st Contact Info) Description 01/28/2021 Prep for Surgery [facility] Pediatric Comprehensive Care [address] [place] [address] Adrianna Hutchins DDS [address] [place] [address] Social History Tobacco Use Types Packs/Day Years [...] on file documented as of this encounter H&P Notes * Adrianna Hutchins DDS - 01/28/2021 3:33 PM EDT Dental Consult The Dental Department was asked to consult on this patient by [facility], the Attending physician for the patient care is Latasha Vigil APRN-CNP , and the Resident assigned to his care is Adrianna Carrillo DDS. No chief complaint on file. Benjamin Cohen is a 30 years old male with a medical history of PMH of autism, bipolar disorder and intellectual disability. Patient is accompanied by his caregiver and is going to have dental procedures done under general anesthesia on January with Dr. Harpreet Mccurdy. No past medical history on file. Current Outpatient Medications: ??? guanfacine (TENEX) 1 MG tablet, guanfacine 1 mg tablet, Disp: , Rfl: ??? Linzess 290 MCG CAPS capsule, , Disp: , Rfl: ??? FLUTICASONE PROPIONATE HFA INHALATION, Inhale by mouth., Disp: , Rfl: ??? cloNIDine (CATAPRES) 0.2 MG tablet, Take 0.2 mg by mouth 2 times daily., Disp: , Rfl: ??? docusate sodium (COLACE) 100 MG capsule, Take 100 mg by mouth 2 times daily., Disp: , Rfl: ??? famotidine (PEPCID) 20 MG tablet, Take 20 mg by mouth 2 times daily., Disp: , Rfl: ??? QUEtiapine (SEROQUEL) 200 MG tablet, Take 200 mg by mouth 2 times daily., Disp: , Rfl: ??? risperiDONE (RISPERDAL) 3 MG tablet, Take 3 mg by mouth 2 times daily., Disp: , Rfl: ??? Sennosides (SENNA) 8.6 MG CAPS, Take by mouth., Disp: , Rfl: ??? sertraline (ZOLOFT) 100 MG tablet, Take 100 mg by mouth daily., Disp: , Rfl: ??? levothyroxine (SYNTHROID, LEVOTHROID) 112 MCG tablet, Take 112 mcg by mouth daily., Disp: , Rfl: ??? Linaclotide (LINZESS) 145 MCG CAPS capsule, Take by mouth., Disp: , Rfl: ??? lithium 300 MG capsule, Take 300 mg by mouth 3 times daily (with meals)., Disp: , Rfl: ??? lorazepam (ATIVAN) 2 MG tablet, Take 2 mg by mouth every 6 hours as needed for Anxiety., Disp: , Rfl: ??? naltrexone (DEPADE) 50 MG tablet, Take 50 mg by mouth daily., Disp: , Rfl: ??? benztropine (COGENTIN) 0.5 MG tablet, Take 0.5 mg by mouth 2 times daily., Disp: , Rfl: ??? clomiPRAMINE (ANAFRANIL) 75 MG capsule, Take 75 mg by mouth at bedtime., Disp: , Rfl: Allergies Allergen Reactions ??? Biaxin [Clarithromycin] Other Severe abdominal cramps Clinical Exam: Moderate to severe generalized dental plaque. No clinical evidence of dental caries was found. Patient is not cooperative, needs to be seen in the OR setting to determine best course of treatment. Patient is fully vaccinated. COVID-19 test is not necessary. Dental consent was obtained by phone. Patient's legal guardian: Delbert Cohen (Brother) [phone]. Adrianna Sung DDS Cosigned by Harpreet Mccurdy DDS at 02/03/2021 9:23 AM EDT documented in this encounter Plan of Treatment Not on file documented as of this encounter Visit Diagnoses Not on filedocumented in this encounter Care Teams Paint Stockman Relationship Specialty Start Date End Date Aileen Corcoran DDS [address] [place], [place] [id number] Resident Dentistry 08/20/20 Ling Coffman APRN-CNP [address] [place] [address] MANAGER GAMING Anesthesiology 01/19/24 documented as of this encounter
--- OUTSIDE RECORDS SUMMARY | 2025-02-05 09:08 | XMS_ITS | Encounter Summary ---
Author Organization [facility] Address [address] [place] [address] Care Team Providers Care Veterinary Practitioner Name Role Phone Aileen Corcoran DDS Unavailable [phone] Ling Coffman ASSISTANT CONSTRUCTION SUPERINTENDENT-SOLVENT STATION ATTENDANT Unavailable Encounter Details Date Type Department Care Team (Late st Contact Info) Description 01/13/2020 Patient Outreach [facility] Oral Surgery [address] [place] [address] Vishal Marin, DDS [address] [place] [address] Social History Tobacco Use Types Packs/Day Years Used Date Smoking Tobacco: Never Smokeless Tobacco: Never Sex and Gender Information Value Date Recorded Sex Assigned at Not on file Legal Sex Male 9:36 AM EST Gender Identity Not on file Sexual Orientation Not on file documented as of this encounter Miscellaneous Notes * Telephone Encounter - Sabrina Valentin - 01/13/2020 1:43 PM EDT Left VM for patient regarding PSE appointment and reschedule of surgery ([facility]). Third attempt. documented in this encounter Plan of Treatment Not on file documented as of this encounter Visit Diagnoses Not on filedocumented in this encounter Additional Health Concerns Infection Onset Date Last Indicated Resolved Time COVID-19 07/19/2020 07/19/2020 08/02/2020 3:08 AM EST documented as of this encounter Care Teams Veterinary Practitioner Relationship Specialty Start Date End Date Aileen Corcoran DDS [address] [place] [address] Resident Dentistry 08/20/20 Ling Coffman APRN-VÍTCOR [address] [place] [address] JOURNEYMAN LINEMAN Anesthesiology 01/19/24 documented as of this encounter
--- OUTSIDE RECORDS SUMMARY | 2025-02-05 09:08 | XMS_ITS | Encounter Summary ---
Author Organization [facility] Address [address] [place] [address] Care Team Providers Care Power Transformer Repair Supervisor Name Role Phone Aileen Corcoran DDS Unavailable [phone] Ling Coffman Unavailable [phone] Encounter Details Date Type Department Care Team (Late st Contact Info) Description 02/16/2022 Abstract PATIENT ACUITY SCORE Social History Tobacco [...] on filedocumented in this encounter Care Teams Power Transformer Repair Supervisor Relationship Specialty Start Date End Date Aileen Corcoran DDS [address] [place] [address] Resident Dentistry 08/20/20 Ling Coffman APRN-CNP [address] [place] [address] TOP LIFT COMPRESSOR Anesthesiology 01/19/24 documented as of this encounter
--- OUTSIDE RECORDS SUMMARY | 2025-02-05 09:27 | XMS_ITS | CCD ---
Author Organization [facility] CliniSyri Care Team Providers Care Knuckle Strap Sewer Name Role Phone Jewell MATA, Gallagher Unavailable [...] [employer] Unavailable Jewell MATA, Gallagher Unavailable [phone] HERMAN CRANE Primary Care Physician [phone] Unavailable Primary Care Provider Unavailabl e Unavailable Primary Care Provider Unavailabl e RONALD PHOENIX D Referring Unavailable BESAMUEL MONROY Admitting Unava ilable ELIU GAN Attending Unavailable CHEHROUOSCAR GUPTA Attending Unavailable DANIELVICTORIA Attending Unavailable CRANE, HERMAN Attending Unavailable CRANE, HERMAN Admitting Unavailable CRANE, HERMAN Admitting Unavailable CRANE, HERMAN Attending Unavailable CRANE, HERMAN Attending Unavailable CRANE, HERMAN Admitting Unavailable Markiv POLE LIFT OPERATOR-CATTLE BROKER, Ling Unavailable [phone] Unavailable Primary Care Provider Unavailabl e Unavailable [...] Clarithromycin Drug Allergy 05-04-20 Other: See Comments [facility] (20 sources) Clarithromycin; Translations: [CLARITHROMYCIN] Propensity to adverse reactions to drug 06-12-20 18 Other [facility] Work Phone: (9 sources) Clarithromycin Drug Allergy 05-04-20 Other: See Comments [facility] (1 source) Clarithromycin Drug Allergy [facility] Repository Medications Current Medications Medication [...] mouth Active take 1 capsule by mo [facility] once daily at bedtime loratadine 10 [...] 4 mg/0.1 mL nasal liquid Use 1 [place] in one nostril (alternate sides) as needed [...] nausea or vomiting Active polyethylene glycol 3350 30660 mg powder for oral solution (20 sources) [...] t wo times a day. 1999 sennosides, halfway 8.6 mg oral capsule (20 sources) Sennosides [...] 08-25-19 Chronic Other aftercare (5 sources) Other continuous churn buttermaker (current) drug therapy; Translations: [OTH PROGRAM OFFICER CURRENT DRUG THERAPY] Onset: 12-04-19 Episodic Other [...] Remisol Chem Physician Orderon 02-13-2024 Physician Order [id number]# 1.00TIFF Normal [facility] Valproic Acidon 02-13-2024 Valpro Acid Lvl 98 microgram/mL Normal 50-[address] [facility] Comment on above: Performed By: #### 2 [id number] #### [facility] [address] [place] [address] [facility] 01-11-2024 VÍCTORN Telephone (PATRICK) JOHNNY DEVINE ([id number]) 1990 M Date Time Provider Department 01/11/24 CRIS DINH During your visit today, we recorded the following information about you: Cris Dinh, RN 01/11/2024 1:50 PM Signed Jessica from [facility] [phone] is caller. 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 Normal [facility] Anesthesia Preprocedure Eval nikolai 12-28-2023 Health And Safety Trainer Authentication Interface Message Text ASA: 3 NPO [...] and physical examination. Attestation: MHPATFORM Normal [facility] Anesthesia Transfer Of Careo n 12-28-2023 Health And Safety Trainer Authentication Interface Message Text Patient taken to [...] DENTAL RESTORATIONS; Surgeon: Harpreet Mccurdy DDS; Location: [facility]; Service: Dental Allergies: Biaxin [clarithromycin] Basic Operating Room Facts: Surgeon(s): Mari Traore DMD Anesthesiologist: Linda Saldivra MD ENGINEER GEOPHYSICAL LABORATORY: Selena Camacho APRN-CRNA DENTAL RESTORATIONS (Bilateral: Mouth) [...] [phone] Comment: The Lao Diabetes Association (ADA) provides guidance for cutoff [...] Standards of Medical Care in Diabetes 2016, Lao Diabetes Association. Diabetes Care. 2016.39(Suppl 1). 8 0.70 8.2 11/06/23 0943 [phone] Comment: The [place]o Diabetes Association (ADA) provides guidance for cutoff [...] Standards of Medical Care in Diabetes 2016, [place] Diabetes Association. Diabetes Care. 2016.39(Suppl 1). 6 0.69 8 (more content not included)... Normal [facility] Blood Attestationon 12-28-19 Health And Safety Trainer Authentication Interface Message Text Blood Attestation: ATTESTATION OF INFORMED CONSENT FOR BLOOD: The transfusion of blood and/or blood components were discussed with the patient and/or legal dental sales representative. The risks, benefits and alternatives were reviewed. Questions regarding blood transfusions were answered. The patient /or the patient's legal dental sales representative agree with the plan for transfusion of blood and/or blood components. Normal [facility] Brief Operative Noteon 12-27 Health And Safety Trainer Authentication Interface Message Text Brief Operative Note PHE OR 3 Johnny Devine 33 year old male Surgical Contact Serial Number: [id number] Preoperative Diagnosis: Pre-op Diagnosis * Caries [K02.9] Moderate intellectual disability [F79] Postoperative Diagnosis: Moderate intellectual disability [F79] Procedures: Comprehensive exam [73944] Full mouth X-ray [ 53219] Extractions [29705] Restorations [46968] Prophy 36445] Fluoride treatment [70965] Surgeon(s): Surgeon(s): Mari Traore DMD Staff: Patient Portal Concierge Nurse: Henrietta Johnson Anesthesia: General Anesthesia Staff: [...] Whiting DDS 12/28/2023 1;48 pm Normal [facility] OP Noteon 12-28-2023 Health And Safety Trainer Authentication Interface Message Text Surgical Case Number Data Unavailable Operating Room Data Unavailable Preoperative Diagnosis(es): Pre-op Diagnosis * Caries [K02.9] Moderate intellectual disability [F79] Postoperative Diagnosis(es): Moderate intellectual disability[F79] @ENCORD@ Surgeon: Dr. Mari Traore DMD Brake Lining Driller Surgeon: Reema Whiting DDS Anesthesia: General- Nasal [...] 4 mg/0.1 mL nasal liquid Use 1 [place] in one nostril (alternate sides) as needed [...] Whiting DDS 12/28/2023 1:53 pm Normal [facility] Progress Noteson 12-28-2023 Health And Safety Trainer Authentication Interface Message Text Patient takes his seizure medication with pudding, facility held them today for dental surgery. Caregiver brought capsules with them to pre-op. Per Dr. Saldivar, divalproex 125 mg x 4 capsules (500 mg) were opened and sprinkles given to patient with 50 mL of water in pre-op. 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 MB cusp tip was visualized upon extraction of #17, but well encased in bone and would not be exposed to the oral cavity following healing of the extraction site. Preoperative Diagnosis(es): Pre-op Diagnosis * Caries [K02.9] Moderate intellectual disability [F79] Postoperative Diagnosis(es): Moderate intellectual disability[F79] Surgeon: Dr. Mari Traore, ANIYAH Brake Lining Driller Surgeon: Reema Whiting DDS Anesthesia: General- Nasal [...] at end of surgery: Stable Normal [facility] PAT Appt H DESTINY Hawkins Health And Safety Trainer Authentication Interface Message Text Addendum 12/21/2023- Caregiver @ [place] facility called to relay that patient unable to take medications without pudding. Per Dr. Newell: Instruct them to take the meds at night. Please then coordinate with either the anesthesia team or surgical team to order IV depacon so he can get his depakote. I would have the facility bring his oral depakote for after surgery If they can't get the depacon at [place] PAT RN updated nursing staff @ [place]. Normal [facility] BASIC METABOLIC PANELon 05-0 Anion gap [Moles/Vol] 13 mmol/L Normal 10-20 [facility] Comment on above: Performed By: #### C H8 ####S PATHOLOGY [id number] [place], [place], Calcium [Mass/Vol] 9.9 mg/dL Normal 8.6-10.3 [facility] Comment on above: Performed By: #### C H8 ####S PATHOLOGY [id number] [place], [place], Chloride [Moles/Vol] 106 mmol/L Normal 98-107 [facility] Comment on above: Performed By: #### C H8 ####S PATHOLOGY [id number] [place], [place], CO2 [Moles/Vol] 25 mmol/L Normal 21-31 [facility] Comment on above: Performed By: #### C H8 ####[facility] PATHOLOGY [id number] [place], [place], Creatinine [Mass/Vol] 0.93 mg/dL Normal 0.70-1.30 [facility] Comment on above: Performed By: #### C H8 ####S PATHOLOGY [id number] [place], [place], ESTIMATED GFR (CKD-EPI) 113 mL/min/1.73sqm Normal >=60 [facility] Comment on above: Result Comment: 2020 [...] Inclusion of Race in Diagnosing Kidney Disease. Lao Journal of Kidney Diseases 2021;79(2):268-88.e1. 2. N Engl J Med 2020 Vol. 385 Issue 19 Pages 8404-0363 Performed By: #### C H8 ####[facility] PATHOLOGY [id number] [place], [place], Glucose [Mass/Vol] 115 mg/dL High 74-109 [facility] Comment on above: Performed By: #### C H8 ####[facility] PATHOLOGY [id number] [place], [place], Potassium [Moles/Vol] 4.6 mmol/L Normal 3.5-5.0 [facility] Comment on above: Performed By: #### C H8 ####S PATHOLOGY [id number] [place], [place], Sodium [Moles/Vol] 139 mmol/L Normal 136-145 [facility] Comment on above: Performed By: #### C H8 ####[facility] PATHOLOGY [id number] [place], [place], Urea nitrogen [Mass/Vol] 15 mg/dL Normal 7-25 [facility] Comment on above: Performed By: #### C H8 ####[facility] PATHOLOGY [id number] [place], [place], Basic metabolic 2000 panelon 12-19-2023 Anion [...] Inclusion of Race in Diagnosing Kidney Disease. Lao Journal of Kidney Diseases 2021;79(2):268-88.e1. 2. N Engl J Med 1 Vol. 385 Issue 19 Pages 0932-8068 Glucose [Mass/Vol] 115 mg/dL High 74 - 109 mg/dL [facility] Interpretation and review of laboratory results Abnormal [facility] Potassium [Moles/Vol] 4.6 mmol/L 3.5 - 5.0 mmol/L [facility] Sodium [Moles/Vol] 139 mmol/L 136 - 145 mmol/L [facility] Urea nitrogen [Mass/Vol] 15 mg/dL 7 - 25 mg/dL [facility] PAT Appt H AND Ross Health And Safety Trainer Authentication Interface Message Text Patient was identified by name and date of . Jaswinder Arredondo Patient at risk for falls:No Falls Risk protocol implemented: N/A Normal [facility] Patient Instructionson 12-18 Health And Safety Trainer Authentication Interface Message Text [place] staff: Since patient is unable to take [...] for pain. Please hold all Vitamin E, [place] 3, fish oil and herbal supplements for 1 week prior to surgery. Please use this LIST to prepare for your surgery/procedure: ? Assume that any lab or testing done during your Pre-admission testing appointment is within normal limits unless otherwise contacted. ? Expect a call from [facility] one business day prior to surgery for [...] your Preparing for Your Surgery/Procedure booklet or [email or web address] if you have questions. Contact the Pre-Admission Testing department at [phone] or your surgeon's office with any questions [...] stay with you after surgery. Please call [facility] [employer] if you need transportation assistance or have concerns about going home [phone]. ? SLEEP APNEA PATIENTS: Bring your sleep apnea machine and mask. ? PLEASE BE ON TIME. A late arrival may result in the cancellation/ delay of your surgery. Thank you for choosing [facility]; it is our pleasure to care for you Normal [facility] 12-03-2023 [facility] Office Visit (UROLMN ) JOHNNY DEVINE ([id number]) 1990 M Date Time Provider Department 12/03/23 [...] OFFICE/OUTPATIENT EST PT MAY NOT REQ PHYS/QHP [05599] LOS History for Encounter Encounter Status:Closed by OSCAR RUIZ on 12/03/23 [facility] Teresita 11-28-2023 CNOV Office Visit (CORTEZ ) JOHNNY DEVINE ([id number]) 1990 M Date Time Provider Department 11/28/23 [...] Victoria Sanchez APRN.CNP 11/28/2023 10:19 AM Signed [facility] Clinic Date: November 28, 2023 Johnny Devine 33 year old male CHIEF COMPLAINT: Patient presents for follow up from surgery. HPI: Here for follow up after diagnostic laparotomy on 10/29/[address] Robin. Patient also underwent a dorsal slit procedure with urology on 10/30/2023 for paraphimosis. Patient with a mosaic worker today to discuss his postoperative course since [...] ICD10: Z48.89 (more content not included)... [facility] Telephone ([employer]) JOHNNY DEVINE ([id number]) 1990 [place] Date Time Provider Department 11/12/23 [...] MD - Fully Assessed Reason for Visit: Mapping Specialist - Other [4892] Prescriptions as of 11/12/2023 - cloNIDine HCl [...] Status:Closed by CRIS DINH on 11/12/23 Normal [facility] Basic metabolic 2000 panelon 11-07-2023 Anion gap [Moles/Vol] 10 mmol/L Normal 9-18 [facility] Comment on above: Order Comment: Speci men Type: BLOOD SPECIMEN Ordering Facility: [facility] Address: [address] [place] [address] Performed By: #### 2 4321-2, 17836-4, 2777- #### [facility] CLIA [id number] [address] [place] [address] [place] Calcium [Mass/Vol] 8.2 mg/dL Low 8.5-10.2 [facility] Comment on above: Order Comment: Speci men Type: BLOOD SPECIMEN Ordering Facility: [facility] Address: [address] [place] [address] Performed By: #### 2 4321-2, 19071-3, 2777-1 #### [facility] CLIA [id number] [address] [place] [address] [place] Chloride [Moles/Vol] 110 mmol/L High 97-105 [facility] Comment on above: Order Comment: Speci men Type: BLOOD SPECIMEN Ordering Facility: [facility] Address: [address] [place] [address] Performed By: #### 2 4321-2, 54221-2, 2777-1 #### [facility] CLIA [id number] [address] [place] [address] [place] CO2 [Moles/Vol] 21 mmol/L Low 22-30 [facility] Comment on above: Order Comment: Speci men Type: BLOOD SPECIMEN Ordering Facility: [facility] Address: [address] [place] [address] Performed By: #### 2 4321-2, 30751-3, 2777-1 #### [facility] CLIA [id number] [address] [place] [address] [place] Creatinine [Mass/Vol] 0.70 mg/dL Low 0.73-1.22 [facility] Comment on above: Order Comment: Speci men Type: BLOOD SPECIMEN Ordering Facility: [facility] Address: [address] [place] [address] Performed By: #### 2 4321-2, 33702-5, 2777-1 #### [facility] CLIA [id number] [address] [place] [address] [place] Creatinine and Glomerular filtration rate.predicted panel (S/P/Bld) 126 mL/min/1.73m??? Normal >=60 [facility] Comment on above: Order Comment: Speci men Type: BLOOD SPECIMEN Ordering Facility: [facility] Address: [address] [place] [address] Result Comment: Lro mated Glomerular Filtration Rate (eGFR) is calculated [...] By: #### 2 4321-2, , 2776-08 #### [facility] CLIA [id number] [address] [place] [id number] [place] Glucose [Mass/Vol] 91 mg/dL Normal 74-99 [facility] Comment on above: Order Comment: Sana zuñiga Type: BLOOD SPECIMEN Ordering Facility: [facility] Address: [address] [place] [address] Result Comment: The Lao Diabetes Association (ADA) provides guidance for cutoff [...] Standards of Medical Care in Diabetes 2016, [place] Diabetes Association. Diabetes Care. 2016.39(Suppl 1). Performed By: #### 2 1-2, , 2776-08 #### [facility] CLIA [id number] [address] [place], [place] [id number] [place] Potassium [Moles/Vol] 4.4 mmol/L Normal 3.7-5.1 [facility] Comment on above: Order Comment: Sana zuñiga Type: BLOOD SPECIMEN Ordering Facility: [facility] Address: [address] [place] [address] Performed By: #### 2 4321-2, , 2776-08 #### [facility] CLIA [id number] [address] [address] [place] Sodium [Moles/Vol] 141 mmol/L Normal 136-144 [facility] Comment on above: Order Comment: Speci men Type: BLOOD SPECIMEN Ordering Facility: [facility] Address: [address] [place] [address] Performed By: #### 2 4321-2, 11364-3, 27702-17 #### [facility] CLIA [id number] [address] [place] [address] [place] Urea nitrogen [Mass/Vol] 8 mg/dL Low 9-24 [facility] Comment on above: Order Comment: Speci men Type: BLOOD SPECIMEN Ordering Facility: [facility] Address: [address] [place] [address] Performed By: #### 2 4321-2, , 2776-08 #### [facility] CLIA [id number] [address] [place] [address] [place] CBC panel Auto (Bld)on 11-06 Erythrocyte distribution width (RBC) [Ratio] 15.1 % High 11.5-15.0 [facility] Comment on above: Order Comment: Speci men Type: BLOOD SPECIMENOrdering Facility: [facility] Address: [address] [place] [address] Performed By: #### 5 8410-2 ####[facility] [id number] [place] [address] [place] Hematocrit (Bld) [Volume fraction] 31.4 % Low 39.0-51.0 [facility] Comment on above: Order Comment: Speci men Type: BLOOD SPECIMENOrdering Facility: [facility] Address: [address] [place] [address] Performed By: #### 5 8410-2 ####[facility] [id number] [place] [address] [place] Hemoglobin (Bld) [Mass/Vol] 9.9 g/dL Low 13.0-17.0 [facility] Comment on above: Order Comment: Speci men Type: BLOOD SPECIMENOrdering Facility: [facility] Address: [address] [place] [address] Performed By: #### 5 8410-2 ####[facility] [id number] [place] [address] [place] MCH (RBC) [Entitic mass] 27.3 pg Normal 26.0-34.0 [facility] Comment on above: Order Comment: Speci men Type: BLOOD SPECIMENOrdering Facility: [facility] Address: [address] [place] [address] Performed By: #### 5 8410-2 ####[facility] [id number] [place] [address] [place] MCHC (RBC) [Mass/Vol] 31.5 g/dL Normal 30.5-36.0 [facility] Comment on above: Order Comment: Speci men Type: BLOOD SPECIMENOrdering Facility: [facility] Address: [address] [place] [address] Performed By: #### 5 8410-2 ####[facility] [id number] [place] [address] [place] MCV (RBC) [Entitic vol] 86.5 fL Normal 80.0-100.0 [facility] Comment on above: Order Comment: Speci men Type: BLOOD SPECIMENOrdering Facility: [facility] Address: [address] [place] [address] Performed By: #### 5 8410-2 ####[facility] [id number] [place] [address] [place] Nucleated RBC (Bld) [#/Vol] 10*3/uL Normal <0.01 [facility] Comment on above: Order Comment: Speci men Type: BLOOD SPECIMENOrdering Facility: [facility] Address: [address] [place] [address] Performed By: #### 5 8410-2 ####[facility] [id number] [place] [address] [place] Platelet mean volume (Bld) [Entitic vol] 9.4 fL Normal 9.0-12.7 [facility] Comment on above: Order Comment: Speci men Type: BLOOD SPECIMENOrdering Facility: [facility] Address: [address] [place] [address] Performed By: #### 5 8410-2 ####[facility] [id number] [place] [address] [place] Platelets (Bld) [#/Vol] 215 10*3/uL Normal 150-400 [facility] Comment on above: Order Comment: Speci men Type: BLOOD SPECIMENOrdering Facility: [facility] Address: [address] [place] [address] Performed By: #### 5 8410-2 ####[facility] [id number] [place] [address] [place] RBC (Bld) [#/Vol] 3.63 10*6/uL Low 4.20-6.00 [facility] Comment on above: Order Comment: Speci men Type: BLOOD SPECIMENOrdering Facility: [facility] Address: [address] [place] [address] Performed By: #### 5 8410-2 ####[facility] [id number] [place] [address] [place] WBC (Bld) [#/Vol] 8.67 10*3/uL Normal 3.70-11.00 [facility] Comment on above: Order Comment: Speci men Type: BLOOD SPECIMENOrdering Facility: [facility] Address: [address] [place] [address] Performed By: #### 5 8410-2 ####[facility] [id number] [place] [address] [place] CNCOon 11-07-2023 CNCO Letter Text Normal [facility] CNDSon 11-07-2023 CNDS HNO ID: [id number] Author: SAMUEL ROBIN MD Service: General Surgery [...] PSH who presents as a transfer to [facility] from [facility] ED for further management of small bowel obstruction. Given patient's baseline cognitive status, NGT difficult to maintain. He was admitted to the [facility] under care of general surgery and was taken to the OR the following morning for diagnostic laparoscopy. Intra-operative findings demonstrated no adhesins, no apparent hernias, dilated small/large bowel, redundant sigmoid c/f volvulus, easily reduced. After recovering in the PACU, he was taken to the [facility] with NGT in place. Patient arrived to [facility] with 8 Fr pediatric haskins catheter [...] to baseline without any intervention. 10/31 - Hasikns removed overnight, spontaneous void. NPO given increased [...] DURING HOSPIT (more content not included)... Normal [facility] CONSULT PROGon 11-07-2023 CONSULT PROG HNO ID: [id number] Author: BRUCE RESENDIZ MD Service: Neurology General [...] November 06, 2023 TIME: 8:36 AM Normal [facility] Magnesium SerPl-mCncon 11-06 Magnesium [Mass/Vol] 2.1 mg/dL Normal 1.7-2.3 [facility] Comment on above: Order Comment: Speci men Type: BLOOD SPECIMEN Ordering Facility: [facility] Address: [address] [place] [address] Performed By: #### 2 4321-2, 49010-3, 2777-1 #### [facility] CLIA [id number] [address] [place] [address] [place] NURSING PROGon 11-07-2023 NURSING PROG HNO ID: [id number] Author: MAYANK READ, RN Service: Nursing Author Type: Registered Nurse Type: Nursing Progress Note Filed: 11/07/2023 14:53 Note Text: Pt is discharged to a fdc, metal extrusion supervisor Magi just arrived to bean picker. Reviewed discharge paper works and handed it to the metal extrusion supervisor. IV removed, pt tolerated. EEG removed by hazardous materials waste technician. Normal [facility] NUTRITIONon 11-07-2023 NUTRITION HNO ID: [id number] Author: RAFAELA COOL DTR Service: Nutrition Therapy Author Type: Cook Soup Type: Nutrition Filed: 11/07/2023 13:38 Note Text: NUTRITION THERAPY ENVELOPE STAMPING MACHINE OPERATOR NOTE SERVICE DATE: 11/07/2023 SERVICE TIME: 999 [...] November 07, 2023 TIME: 1:38 PM Normal [facility] Phosphate SerPl-mCncon 11-06 Phosphate [Mass/Vol] 4.1 mg/dL Normal 2.7-4.8 [facility] Comment on above: Order Comment: Speci men Type: BLOOD SPECIMEN Ordering Facility: [facility] Address: [address] [place] [address] Performed By: #### 2 4321-2, , 2776-08 #### [facility] CLIA [id number] [address] [place] [address] [place] Basic metabolic 2000 panelon 11-06-2023 Anion gap [Moles/Vol] 16 mmol/L Normal 9-18 [facility] Comment on above: Order Comment: Speci men Type: BLOOD SPECIMEN Ordering Facility: [facility] Address: [address] [place] [address] Performed By: #### 2 4321-2, , 2776-08 #### [facility] CLIA [id number] [address] [place] [address] [place] Calcium [Mass/Vol] 8.9 mg/dL Normal 8.5-10.2 [facility] Comment on above: Order Comment: Speci men Type: BLOOD SPECIMEN Ordering Facility: [facility] Address: [address] [place] [address] Performed By: #### 2 4321-2, 91926-2, 2776- #### [facility] CLIA [id number] [address] [place] [address] [place] Chloride [Moles/Vol] 112 mmol/L High 97-105 [facility] Comment on above: Order Comment: Speci men Type: BLOOD SPECIMEN Ordering Facility: [facility] Address: [address] [place] [address] Performed By: #### 2 4321-2, 54661-4, 2777-1 #### [facility] CLIA [id number] [address] [place] [address] [place] CO2 [Moles/Vol] 18 mmol/L Low 22-30 [facility] Comment on above: Order Comment: Speci men Type: BLOOD SPECIMEN Ordering Facility: [facility] Address: [address] [place] [address] Performed By: #### 2 4321-2, 52457-1, 2777-1 #### [facility] CLIA [id number] [address] [place] [address] [place] Creatinine [Mass/Vol] 0.69 mg/dL Low 0.73-1.22 [facility] Comment on above: Order Comment: Speci men Type: BLOOD SPECIMEN Ordering Facility: [facility] Address: [address] [place] [address] Performed By: #### 2 4321-2, 88479-8, 2777-1 #### [facility] CLIA [id number] [address] [place] [address] [place] Creatinine and Glomerular filtration rate.predicted panel (S/P/Bld) 127 mL/min/1.73m??? Normal >=60 [facility] Comment on above: Order Comment: Speci men Type: BLOOD SPECIMEN Ordering Facility: [facility] Address: [address] [place] [address] Result Comment: Lor mated Glomerular Filtration Rate [...] By: #### 2 4321-2, , 2776-08 #### [facility] CLIA [id number] [address] [address] [place] Glucose [Mass/Vol] 83 mg/dL Normal 74-99 [facility] Comment on above: Order Comment: Sana zuñiga Type: BLOOD SPECIMEN Ordering Facility: [facility] Address: [address] [place] [address] Result Comment: The [place] [employer] (ADA) provides guidance for cutoff [...] Standards of Medical Care in Diabetes 2016, [place] [employer]. Diabetes Care. 2016.39(Suppl 1). Performed By: #### 2 4321-2, , 2776-08 #### [facility] CLIA [id number] [facility] [place] [id number] [place] Potassium [Moles/Vol] 4.9 mmol/L Normal 3.7-5.1 [facility] Comment on above: Order Comment: Sana zuñiga Type: BLOOD SPECIMEN Ordering Facility: [facility] Address: [address] [place] [address] Performed By: #### 2 4321-2, , 2776-08 #### [facility] CLIA [id number] [address] [address] [place] Sodium [Moles/Vol] 146 mmol/L High 136-144 [facility] Comment on above: Order Comment: Speci men Type: BLOOD SPECIMEN Ordering Facility: [facility] Address: [address] [place] [address] Performed By: #### 2 4321-2, , 2776-08 #### [facility] CLIA [id number] [address] [place] [address] [place] Urea nitrogen [Mass/Vol] 6 mg/dL Low 9-24 [facility] Comment on above: Order Comment: Speci men Type: BLOOD SPECIMEN Ordering Facility: [facility] Address: [address] [place] [address] Performed By: #### 2 4321-2, , 2776-08 #### [facility] CLIA [id number] [address] [place] [address] [place] CBC panel Auto (Bld)on 11-05 Erythrocyte distribution width (RBC) [Ratio] 14.8 % Normal 11.5-15.0 [facility] Comment on above: Order Comment: Speci men Type: BLOOD SPECIMEN Ordering Facility: [facility] Address: [address] [place] [address] Performed By: #### 2 777-1, , #### [facility] CLIA [id number] [address] [place] [address] [place] Hematocrit (Bld) [Volume fraction] 31.3 % Low 39.0-51.0 [facility] Comment on above: Order Comment: Speci men Type: BLOOD SPECIMEN Ordering Facility: [facility] Address: [address] [place] [address] Performed By: #### 2 777-1, , #### [facility] CLIA [id number] [address] [place] [address] [place] Hemoglobin (Bld) [Mass/Vol] 9.8 g/dL Low 13.0-17.0 [facility] Comment on above: Order Comment: Speci men Type: BLOOD SPECIMEN Ordering Facility: [facility] Address: [address] [place] [address] Performed By: #### 2 777-1, 71569-5, #### [facility] CLIA [id number] [address] [place] [address] [place] MCH (RBC) [Entitic mass] 26.4 pg Normal 26.0-34.0 [facility] Comment on above: Order Comment: Speci men Type: BLOOD SPECIMEN Ordering Facility: [facility] Address: [address] [place] [address] Performed By: #### 2 777-1, 50367-6, #### [facility] CLIA [id number] [address] [place] [address] [place] MCHC (RBC) [Mass/Vol] 31.3 g/dL Normal 30.5-36.0 [facility] Comment on above: Order Comment: Speci men Type: BLOOD SPECIMEN Ordering Facility: [facility] Address: [address] [place] [address] Performed By: #### 2 777-1, , #### [facility] CLIA [id number] [address] [place] [address] [place] MCV (RBC) [Entitic vol] 84.4 fL Normal 80.0-100.0 [facility] Comment on above: Order Comment: Speci men Type: BLOOD SPECIMEN Ordering Facility: [facility] Address: [address] [place] [address] Performed By: #### 2 777-1, 39996-2, #### [facility] CLIA [id number] [address] [place] [address] [place] Nucleated RBC (Bld) [#/Vol] 10*3/uL Normal <0.01 [facility] Comment on above: Order Comment: Speci men Type: BLOOD SPECIMEN Ordering Facility: [facility] Address: [address] [place] [address] Performed By: #### 2 777-1, 58443-6, #### [facility] CLIA [id number] [address] [place] [address] [place] Platelet mean volume (Bld) [Entitic vol] 8.9 fL Low 9.0-12.7 [facility] Comment on above: Order Comment: Speci men Type: BLOOD SPECIMEN Ordering Facility: [facility] Address: [address] [place] [address] Performed By: #### 2 777-1, 44564-1, #### [facility] CLIA [id number] [address] [place] [address] [place] Platelets (Bld) [#/Vol] 244 10*3/uL Normal 150-400 [facility] Comment on above: Order Comment: Speci men Type: BLOOD SPECIMEN Ordering Facility: [facility] Address: [address] [place] [address] Performed By: #### 2 777-1, 45844-2, #### [facility] CLIA [id number] [address] [place] [address] [place] RBC (Bld) [#/Vol] 3.71 10*6/uL Low 4.20-6.00 [facility] Comment on above: Order Comment: Speci men Type: BLOOD SPECIMEN Ordering Facility: [facility] Address: [address] [place] [address] Performed By: #### 2 777-1, 69114-9, #### [facility] CLIA [id number] [address] [place] [address] [place] WBC (Bld) [#/Vol] 7.59 10*3/uL Normal 3.70-11.00 [facility] Comment on above: Order Comment: Speci men Type: BLOOD SPECIMEN Ordering Facility: [facility] Address: [address] [place] [address] Performed By: #### 2 777-1, 67902-3, 48487-8 #### [facility] CLIA [id number] [address] [place] [address] [id number] [place] [address] [place] CONSULT PROGon 11-06-2023 CONSULT PROG HNO ID: [id number] Author: KIM BHAKTA MD Service: Neurology General [...] for now. Kim Bhakta MD Staff Neurologist [facility] Multiple Sclerosis Normal [facility] Magnesium [Mass/Vol] 2.3 mg/dL Normal 1.7-2.3 [facility] Comment on above: Order Comment: Speci men Type: BLOOD SPECIMEN Ordering Facility: [facility] Address: [address] [place] [address] Performed By: #### 2 4321-2, 37079-0, 7- #### [facility] CLIA [id number] [address] [place] [address] [place] [facility]05 Phosphate [Mass/Vol] 4.1 mg/dL Normal 2.7-4.8 [facility] Comment on above: Order Comment: Speci men Type: BLOOD SPECIMEN Ordering Facility: [facility] Address: [address] [place] [address] Performed By: #### 2 4321-2, 75636-5, 2777 #### [facility] CLIA [id number] [address] [place] [address] [place] THERAPY NTon 11-06-2023 THERAPY NT HNO ID: [id number] Author: CHANTELL BELLA CCC-ESCALATOR ATTENDANT Service: Speech/Swallow Author Type: Speech Language Pathologist Type: Therapy (PT/OT/Speech/Resp) Filed: 11/06/2023 10:28 Note Text: [facility] Speech Pathology - [facility] Bedside Swallow Evaluation SERVICE DATE: 11/06/2023 ROOM: [place] [address] IMPRESSIONS: Limited bedside swallowing evaluation as patient [...] assessment. PLAN: Page with concerns/questions. Chantell Bella [facility]-ESCALATOR ATTENDANT Pager # [phone] BRIEF DIAGNOSIS AND HISTORY per General Surgery [...] discussed with: MIRIAM adkins SIGNATURE: Chantell Bella [facility]-ESCALATOR ATTENDANT PATIENT NAME: Johnny Devine DATE: November 06, 2023 TIME: 10:12 AM PAGER: [phone] Normal [facility] Basic metabolic 2000 panelon 11-05-2023 Anion gap [Moles/Vol] 7 mmol/L Low -18 [facility] Comment on above: Order Comment: Speci men Type: BLOOD SPECIMEN Ordering Facility: [facility] Address: [address] [place] [address] Performed By: #### 5 7021-8 #### [facility] CLIA [id number] [address] [place] [address] [place] Calcium [Mass/Vol] 7.6 mg/dL Low 8.5-10.2 [facility] Comment on above: Order Comment: Speci men Type: BLOOD SPECIMEN Ordering Facility: [facility] Address: [address] [place] [address] Performed By: #### 5 7021-8 #### [facility] CLIA [id number] [address] [place] [address] [place] Chloride [Moles/Vol] 112 mmol/L High 97-105 [facility] Comment on above: Order Comment: Speci men Type: BLOOD SPECIMEN Ordering Facility: [facility] Address: [address] [place] [address] Performed By: #### 5 7021-8 #### [facility] CLIA [id number] [address] [place] [address] [place] CO2 [Moles/Vol] 23 mmol/L Normal 22-30 [facility] Comment on above: Order Comment: Speci men Type: BLOOD SPECIMEN Ordering Facility: [facility] Address: [address] [place] [address] Performed By: #### 5 7021-8 #### [facility] CLIA [id number] [address] [place] [address] [place] Creatinine [Mass/Vol] 0.64 mg/dL Low 0.73-1.22 [facility] Comment on above: Order Comment: Speci men Type: BLOOD SPECIMEN Ordering Facility: [facility] Address: [address] [place] [address] Performed By: #### 5 7021-8 #### [facility] CLIA [id number] [address] [place] [address] [place] Creatinine and Glomerular filtration rate.predicted panel (S/P/Bld) 130 mL/min/1.73m??? Normal >=60 [facility] Comment on above: Order Comment: Speci men Type: BLOOD SPECIMEN Ordering Facility: [facility] Address: [address] [place] [address] Result Comment: Lor mated Glomerular Filtration Rate [...] GFR. Performed By: #### 5 7021-8 #### [facility] CLIA [id number] [address] [place] [address] [place] Glucose [Mass/Vol] 96 mg/dL Normal 74-99 [facility] Comment on above: Order Comment: Speci men Type: BLOOD SPECIMEN Ordering Facility: [facility] Address: [address] [place] [address] Result Comment: The [place] [employer] (ADA) provides guidance for cutoff [...] Standards of Medical Care in Diabetes 2016, [place] [employer]. Diabetes Care. 2016.39(Suppl 1). Performed By: #### 5 7021-8 #### [facility] CLIA [id number] [address] [place] [address] [place] Potassium [Moles/Vol] 4.2 mmol/L Normal 3.7-5.1 [facility] Comment on above: Order Comment: Akbari men Type: BLOOD SPECIMEN Ordering Facility: [facility] Address: [address] [place] [address] Performed By: #### 5 7021-8 #### [facility] CLIA [id number] [address] [place] [address] [place] Sodium [Moles/Vol] 142 mmol/L Normal 136-144 [facility] Comment on above: Order Comment: Speci men Type: BLOOD SPECIMEN Ordering Facility: [facility] Address: [address] [place] [address] Performed By: #### 5 7021-8 #### [facility] CLIA [id number] [address] [place] [address] [place] Urea nitrogen [Mass/Vol] 5 mg/dL Low 9-24 [facility] Comment on above: Order Comment: Speci men Type: BLOOD SPECIMEN Ordering Facility: [facility] Address: [address] [place] [address] Performed By: #### 5 7021-8 #### [facility] CLIA [id number] [address] [place] [address] [place] CBC panel Auto (Bld)on 11-04 Erythrocyte distribution width (RBC) [Ratio] 14.6 % Normal 11.5-15.0 [facility] Comment on above: Order Comment: Speci men Type: BLOOD SPECIMENOrdering Facility: [facility] Address: [address] [place] [address] Performed By: #### 5 8410-2 ####[facility] [id number] [place] [address] [place] Hematocrit (Bld) [Volume fraction] 30.8 % Low 39.0-51.0 [facility] Comment on above: Order Comment: Speci men Type: BLOOD SPECIMENOrdering Facility: [facility] Address: [address] [place] [address] Performed By: #### 5 8410-2 ####[facility] [id number] [place] [address] [place] Hemoglobin (Bld) [Mass/Vol] 9.7 g/dL Low 13.0-17.0 [facility] Comment on above: Order Comment: Speci men Type: BLOOD SPECIMENOrdering Facility: [facility] Address: [address] [place] [address] Performed By: #### 5 8410-2 ####[facility] [id number] [place] [address] [place] MCH (RBC) [Entitic mass] 26.5 pg Normal 26.0-34.0 [facility] Comment on above: Order Comment: Speci men Type: BLOOD SPECIMENOrdering Facility: [facility] Address: [address] [place], [place] [address] Performed By: #### 5 8410-2 ####[facility] [id number] [place] [address] [place] MCHC (RBC) [Mass/Vol] 31.5 g/dL Normal 30.5-36.0 [facility] Comment on above: Order Comment: Speci men Type: BLOOD SPECIMENOrdering Facility: [facility] Address: [address] [place] [address] Performed By: #### 5 8410-2 ####[facility] [id number] [place] [address] [place] MCV (RBC) [Entitic vol] 84.2 fL Normal 80.0-100.0 [facility] Comment on above: Order Comment: Speci men Type: BLOOD SPECIMENOrdering Facility: [facility] Address: [address] [place] [address] Performed By: #### 5 8410-2 ####[facility] [id number] [place] [address] [place] Nucleated RBC (Bld) [#/Vol] 10*3/uL Normal <0.01 [facility] Comment on above: Order Comment: Speci men Type: BLOOD SPECIMENOrdering Facility: [facility] Address: [address] [place] [address] Performed By: #### 5 8410-2 ####[facility] [id number] [place] [address] [place] Platelet mean volume (Bld) [Entitic vol] 9.1 fL Normal 9.0-12.7 [facility] Comment on above: Order Comment: Speci men Type: BLOOD SPECIMENOrdering Facility: [facility] Address: [address] [place] [address] Performed By: #### 5 8410-2 ####[facility] [id number] [place] [address] [place] Platelets (Bld) [#/Vol] 205 10*3/uL Normal 150-400 [facility] Comment on above: Order Comment: Speci men Type: BLOOD SPECIMENOrdering Facility: [facility] Address: [address] [place] [address] Performed By: #### 5 8410-2 ####[facility] [id number] [place] [address] [place] RBC (Bld) [#/Vol] 3.66 10*6/uL Low 4.20-6.00 [facility] Comment on above: Order Comment: Speci men Type: BLOOD SPECIMENOrdering Facility: [facility] Address: [address] [place] [address] Performed By: #### 5 8410-2 ####[facility] [id number] [place] [address] [place] WBC (Bld) [#/Vol] 7.54 10*3/uL Normal 3.70-11.00 [facility] Comment on above: Order Comment: Speci men Type: BLOOD SPECIMENOrdering Facility: [facility] Address: [address] [place] [address] Performed By: #### 5 8410-2 ####[facility] [id number] [place] [address] [place] Magnesium SerPl-mCncon 11-04 Magnesium [Mass/Vol] 2.0 mg/dL Normal 1.7-2.3 [facility] Comment on above: Order Comment: Speci men Type: BLOOD SPECIMEN Ordering Facility: [facility] Address: [address] [place] [address] Performed By: #### 5 7021-8 #### [facility] CLIA [id number] [address] [place] [address] [place] Phosphate SerPl-mCncon 11-04 Phosphate [Mass/Vol] 3.1 mg/dL Normal 2.7-4.8 [facility] Comment on above: Order Comment: Speci men Type: BLOOD SPECIMEN Ordering Facility: [facility] Address: [address] [place] [address] Performed By: #### 5 7021-8 #### [facility] CLIA [id number] [address] [place] [address] THERAPY NTon 11-05-2023 THERAPY NT HNO ID: [id number] Author: ANA LUISA MORALES, PT Service: ? Author Type: Physical Therapist Type: Therapy (PT/OT/Speech/Resp) Filed: 11/05/2023 15:46 Note Text: Physical Therapy Evaluation Summary SERVICE DATE: 11/05/2023 SERVICE TIME: 1459 to 1532 ROOM: [place] [address] PT 6 Clicks Score: 18 DISCHARGE RECOMMENDATIONS [...] Patient Lives With: Other: See Comment Comments: senior living ( intermediate care ) Assistance Available: 24-Hour [...] and mobility-other TREATMENT INTERVENTIONS Evaluation, Therapeutic Activity (25183) Timed Code Treatment (minutes): 18 Skilled Treatment [...] Type: Stepping Bed To Chair Transfer Equipment: (PRISON PSYCHIATRIST) frequent verbal cues Gait Contact Guard Assistance [...] November 05, 2023 TIME: 3:46 PM Normal [facility] Basic metabolic 2000 panelon 11-04-2023 Anion gap [Moles/Vol] 9 mmol/L Normal 9-18 [facility] Comment on above: Order Comment: Speci men Type: BLOOD SPECIMEN Ordering Facility: [facility] Address: [address] [place] [address] Performed By: #### 2 777-1, 73282-6, #### [facility] CLIA [id number] [address] [place] [address] [place] Calcium [Mass/Vol] 7.7 mg/dL Low 8.5-10.2 [facility] Comment on above: Order Comment: Speci men Type: BLOOD SPECIMEN Ordering Facility: [facility] Address: [address] [place] [address] Performed By: #### 2 777-1, 48061-5, #### [facility] CLIA [id number] [address] [place] [address] [place] Chloride [Moles/Vol] 112 mmol/L High 97-105 [facility] Comment on above: Order Comment: Speci men Type: BLOOD SPECIMEN Ordering Facility: [facility] Address: [address] [place] [address] Performed By: #### 2 777-1, 01055-3, #### [facility] CLIA [id number] [address] [place] [address] [place] CO2 [Moles/Vol] 24 mmol/L Normal 22-30 [facility] Comment on above: Order Comment: Speci men Type: BLOOD SPECIMEN Ordering Facility: [facility] Address: [address] [place] [address] Performed By: #### 2 777-1, 09377-6, #### [facility] CLIA [id number] [address] [place] [address] [place] Creatinine [Mass/Vol] 0.70 mg/dL Low 0.73-1.22 [facility] Comment on above: Order Comment: Sana zuñiga Type: BLOOD SPECIMEN Ordering Facility: [facility] Address: [address] [place] [address] Performed By: #### 2 777-1, 08550-0, #### [facility] CLIA [id number] [address] [place] [address] [place] Creatinine and Glomerular filtration rate.predicted panel (S/P/Bld) 126 mL/min/1.73m??? Normal >=60 [facility] Comment on above: Order Comment: Sana zuñiga Type: BLOOD SPECIMEN Ordering Facility: [facility] Address: [address] [place] [address] Result Comment: Lor mated Glomerular Filtration Rate [...] actual GFR. Performed By: #### 2 777-1, 40088-8, #### [facility] CLIA [id number] [address] [place] [address] [place] Glucose [Mass/Vol] 79 mg/dL Normal 74-99 [facility] Comment on above: Order Comment: Sana zuñiga Type: BLOOD SPECIMEN Ordering Facility: [facility] Address: [address] [place] [address] Result Comment: The [place] [employer] (ADA) provides guidance for cutoff [...] Standards of Medical Care in Diabetes 2016, [place] [employer]. Diabetes Care. 2016.39(Suppl 1). Performed By: #### 2 777-1, 46807-0, #### [facility] CLIA [id number] [address] [place] [address] [place] Potassium [Moles/Vol] 3.6 mmol/L Low 3.7-5.1 [facility] Comment on above: Order Comment: Sana zuñiga Type: BLOOD SPECIMEN Ordering Facility: [facility] Address: [address] [place] [address] Performed By: #### 2 777-1, 13063-5, #### [facility] CLIA [id number] [address] [place] [address] [place] Sodium [Moles/Vol] 145 mmol/L High 136-144 [facility] Comment on above: Order Comment: Sana zuñiga Type: BLOOD SPECIMEN Ordering Facility: [facility] Address: [address] [place] [address] Performed By: #### 2 777-1, 13882-9, #### [facility] CLIA [id number] [address] [place] [address] [place] Urea nitrogen [Mass/Vol] 4 mg/dL Low 9-24 [facility] Comment on above: Order Comment: Speci men Type: BLOOD SPECIMEN Ordering Facility: [facility] Address: [address] [place] [address] Performed By: #### 2 777-1, 40213-2, #### [facility] CLIA [id number] [address] [place] [address] [place] CBC panel Auto (Bld)on 11-03 Erythrocyte distribution width (RBC) [Ratio] 14.3 % Normal 11.5-15.0 [facility] Comment on above: Order Comment: Speci men Type: BLOOD SPECIMEN Ordering Facility: [facility] Address: [address] [place] [address] Performed By: #### 2 777-1, 48868-4, #### [facility] CLIA [id number] [address] [place] [address] [place] Hematocrit (Bld) [Volume fraction] 33.4 % Low 39.0-51.0 [facility] Comment on above: Order Comment: Speci men Type: BLOOD SPECIMEN Ordering Facility: [facility] Address: [address] [place] [address] Performed By: #### 2 777-1, 78280-8, #### [facility] CLIA [id number] [address] [place] [address] [place] Hemoglobin (Bld) [Mass/Vol] 10.5 g/dL Low 13.0-17.0 [facility] Comment on above: Order Comment: Speci men Type: BLOOD SPECIMEN Ordering Facility: [facility] Address: [address] [place] [address] Performed By: #### 2 777-1, 97310-3, #### [facility] CLIA [id number] [address] [place] [address] [place] MCH (RBC) [Entitic mass] 26.4 pg Normal 26.0-34.0 [facility] Comment on above: Order Comment: Speci men Type: BLOOD SPECIMEN Ordering Facility: [facility] Address: [address] [place] [address] Performed By: #### 2 777-1, 19505-7, #### [facility] CLIA [id number] [address] [place] [address] [place] MCHC (RBC) [Mass/Vol] 31.4 g/dL Normal 30.5-36.0 [facility] Comment on above: Order Comment: Speci men Type: BLOOD SPECIMEN Ordering Facility: [facility] Address: [address] [place] [address] Performed By: #### 2 777-1, 63608-2, #### [facility] CLIA [id number] [address] [place] [address] [place] MCV (RBC) [Entitic vol] 84.1 fL Normal 80.0-100.0 [facility] Comment on above: Order Comment: Speci men Type: BLOOD SPECIMEN Ordering Facility: [facility] Address: [address] [place] [address] Performed By: #### 2 777-1, 00783-6, #### [facility] CLIA [id number] [address] [place] [address] [place] Nucleated RBC (Bld) [#/Vol] 10*3/uL Normal <0.01 [facility] Comment on above: Order Comment: Speci men Type: BLOOD SPECIMEN Ordering Facility: [facility] Address: [address] [place] [address] Performed By: #### 2 777-1, 11080-9, #### [facility] CLIA [id number] [address] [place] [address] [place] Platelet mean volume (Bld) [Entitic vol] 8.9 fL Low 9.0-12.7 [facility] Comment on above: Order Comment: Speci men Type: BLOOD SPECIMEN Ordering Facility: [facility] Address: [address] [place] [address] Performed By: #### 2 777-1, 82273-2, #### [facility] CLIA [id number] [address] [place] [address] [place] Platelets (Bld) [#/Vol] 242 10*3/uL Normal 150-400 [facility] Comment on above: Order Comment: Speci men Type: BLOOD SPECIMEN Ordering Facility: [facility] Address: [address] [place] [address] Performed By: #### 2 777-1, 66715-4, #### [facility] CLIA [id number] [address] [place] [address] [place] RBC (Bld) [#/Vol] 3.97 10*6/uL Low 4.20-6.00 [facility] Comment on above: Order Comment: Speci men Type: BLOOD SPECIMEN Ordering Facility: [facility] Address: [address] [place] [address] Performed By: #### 2 777-1, 39584-4, #### [facility] CLIA [id number] [address] [place] [address] [place] WBC (Bld) [#/Vol] 9.36 10*3/uL Normal 3.70-11.00 [facility] Comment on above: Order Comment: Speci men Type: BLOOD SPECIMEN Ordering Facility: [facility] Address: [address] [place] [address] Performed By: #### 2 777-1, 20970-7, #### [facility] CLIA [id number] [address] [place] [address] [place] Magnesium SerPl-mCncon 11-03 Magnesium [Mass/Vol] 2.0 mg/dL Normal 1.7-2.3 [facility] Comment on above: Order Comment: Speci men Type: BLOOD SPECIMEN Ordering Facility: [facility] Address: [address] [place] [address] Performed By: #### 2 777-1, 92964-0, #### [facility] CLIA [id number] [address] [place] [address] [place] NUTRITIONon 11-04-2023 NUTRITION HNO ID: [id number] Author: SAURABH VAZQUEZ DTR Service: Nutrition Therapy Author Type: Cook Soup Type: Nutrition Filed: 11/04/2023 14:35 Note Text: NUTRITION THERAPY ENVELOPE 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 [facility] of [facility] Malnutrition Score: 0 Nutrition [...] November 04, 2023 TIME: 2:25 PM Normal [facility] Phosphate SerPl-mCncon 11-03 Phosphate [Mass/Vol] 2.6 mg/dL Low 2.7-4.8 [facility] Comment on above: Order Comment: Speci men Type: BLOOD SPECIMEN Ordering Facility: [facility] Address: [address] [place] [address] Performed By: #### 2 777-1, 23121-4, 67694-1 #### [facility] CLIA [id number] [address] [place] [address] [place] Valproate Free SerPl-mCncon 11-04-2023 Valproate Free [Mass/Vol] 11.3 ug/mL Normal 4.0-30.0 [facility] Comment on above: Order Comment: Speci yogesh Type: BLOOD SPECIMENOrdering Facility: [facility] Address: [address] [place] [address] Result Comment: Refe rence ranges and high/low indicator flags are provided as general guidelines only. The treating physician must determine appropriate target levels/dosing based on the specific clinical situation. This test was developed and its performance characteristics determined by [facility] [place] ([facility] It has not been cleared or approved by the FDA. -[facility] is regulated under CLIA as qualified to perform high-complexity testing. This test is used for clinical purposes. It should not be regarded as investigational or for research. Performed By: #### 4 087-3 ####[facility] [id number] [place] [address] [place] Valproate SerPl-ncon 11-03 Valproate [Mass/Vol] 49.2 ug/mL Low 50.0-100.0 [facility] Comment on above: Order Comment: Speci yogesh Type: BLOOD SPECIMEN Ordering Facility: [facility] Address: [address] [place] [address] Result Comment: Refe rence ranges and high/low indicator flags are provided as general guidelines only. The treating physician must determine appropriate target levels/dosing based on the specific clinical situation. Performed By: #### 2 4321-2, 80507-1, 2777-1 #### [facility] CLIA [id number] [address] [place] [address] [place] Basic metabolic 2000 panelon 11-03-2023 Anion gap [Moles/Vol] 11 mmol/L Normal 9-18 [facility] Comment on above: Order Comment: Speci men Type: BLOOD SPECIMEN Ordering Facility: [facility] Address: [address] [place] [address] Performed By: #### 2 777-1, 85972-0, 37262-1 #### [facility] CLIA [id number] [address] [place] [address] [place] Calcium [Mass/Vol] 7.7 mg/dL Low 8.5-10.2 [facility] Comment on above: Order Comment: Speci men Type: BLOOD SPECIMEN Ordering Facility: [facility] Address: [address] [place] [address] Performed By: #### 2 777-1, 98274-6, #### [facility] CLIA [id number] [address] [place] [address] [place] Chloride [Moles/Vol] 112 mmol/L High 97-105 [facility] Comment on above: Order Comment: Speci men Type: BLOOD SPECIMEN Ordering Facility: [facility] Address: [address] [place] [address] Performed By: #### 2 777-1, 47584-1, #### [facility] CLIA [id number] [address] [place] [address] [place] CO2 [Moles/Vol] 22 mmol/L Normal 22-30 [facility] Comment on above: Order Comment: Speci men Type: BLOOD SPECIMEN Ordering Facility: [facility] Address: [address] [place] [address] Performed By: #### 2 777-1, 39645-7, #### [facility] CLIA [id number] [address] [place] [address] [place] Creatinine [Mass/Vol] 0.68 mg/dL Low 0.73-1.22 [facility] Comment on above: Order Comment: Speci men Type: BLOOD SPECIMEN Ordering Facility: [facility] Address: [address] [place] [address] Performed By: #### 2 777-1, 88627-7, #### [facility] CLIA [id number] [address] [place] [address] [place] Creatinine and Glomerular filtration rate.predicted panel (S/P/Bld) 127 mL/min/1.73m??? Normal >=60 [facility] Comment on above: Order Comment: Sana zuñiga Type: BLOOD SPECIMEN Ordering Facility: [facility] Address: [address] [place] [address] Result Comment: Lor mated Glomerular Filtration Rate [...] actual GFR. Performed By: #### 2 777-1, 57690-8, #### [facility] CLIA [id number] [address] [place] [address] [place] Glucose [Mass/Vol] 85 mg/dL Normal 74-99 [facility] Comment on above: Order Comment: Sana zuñiga Type: BLOOD SPECIMEN Ordering Facility: [facility] Address: [address] [place] [address] Result Comment: The [place] [employer] (ADA) provides guidance for cutoff [...] Standards of Medical Care in Diabetes 2016, [place] [employer]. Diabetes Care. 2016.39(Suppl 1). Performed By: #### 2 777-1, 41030-1, #### [facility] CLIA [id number] [address] [place] [address] [place] Potassium [Moles/Vol] 3.4 mmol/L Low 3.7-5.1 [facility] Comment on above: Order Comment: Speci men Type: BLOOD SPECIMEN Ordering Facility: [facility] Address: [address] [place] [address] Performed By: #### 2 777-1, 95803-0, #### [facility] CLIA [id number] [address] [place] [address] [place] Sodium [Moles/Vol] 145 mmol/L High 136-144 [facility] Comment on above: Order Comment: Speci men Type: BLOOD SPECIMEN Ordering Facility: [facility] Address: [address] [place] [address] Performed By: #### 2 777-1, 58034-5, #### [facility] CLIA [id number] [address] [place] [address] [place] Urea nitrogen [Mass/Vol] 5 mg/dL Low 9-24 [facility] Comment on above: Order Comment: Speci men Type: BLOOD SPECIMEN Ordering Facility: [facility] Address: [address] [place] [address] Performed By: #### 2 777-1, 36653-1, #### [facility] CLIA [id number] [address] [place] [address] [place] CBC W Auto Differential pane l (Bld)on 11-03-2023 Basophils (Bld) [#/Vol] 10*3/uL Normal <0.11 [facility] Comment on above: Order Comment: Speci men Type: BLOOD SPECIMEN Ordering Facility: [facility] Address: [address] [place] [address] Performed By: #### 5 7021-8 #### [facility] CLIA [id number] [address] [place] [address] [place] Basophils/100 WBC (Bld) 0.3 % Normal [facility] Comment on above: Order Comment: Speci men Type: BLOOD SPECIMEN Ordering Facility: [facility] Address: [address] [place] [address] Performed By: #### 5 7021-8 #### [facility] CLIA [id number] [address] [place] [address] [place] Differential cell count method Nom (Bld) Auto Normal [facility] Comment on above: Order Comment: Speci men Type: BLOOD SPECIMEN Ordering Facility: [facility] Address: [address] [place] [address] Performed By: #### 5 7021-8 #### [facility] CLIA [id number] [address] [place] [address] [place] Eosinophils (Bld) [#/Vol] 0.25 10*3/uL Normal <0.46 [facility] Comment on above: Order Comment: Speci men Type: BLOOD SPECIMEN Ordering Facility: [facility] Address: [address] [place] [address] Performed By: #### 5 7021-8 #### [facility] CLIA [id number] [address] [place] [address] [place] Eosinophils/100 WBC (Bld) 3.1 % Normal [facility] Comment on above: Order Comment: Speci men Type: BLOOD SPECIMEN Ordering Facility: [facility] Address: [address] [place] [address] Performed By: #### 5 7021-8 #### [facility] CLIA [id number] [address] [place] [address] [place] Erythrocyte distribution width (RBC) [Ratio] 13.7 % Normal 11.5-15.0 [facility] Comment on above: Order Comment: Speci men Type: BLOOD SPECIMEN Ordering Facility: [facility] Address: [address] [place] [address] Performed By: #### 5 7021-8 #### [facility] CLIA [id number] [address] [place] [address] [place] Hematocrit (Bld) [Volume fraction] 29.9 % Low 39.0-51.0 [facility] Comment on above: Order Comment: Speci men Type: BLOOD SPECIMEN Ordering Facility: [facility] Address: [address] [place] [address] Performed By: #### 5 7021-8 #### [facility] CLIA [id number] [address] [place] [address] [place] Hemoglobin (Bld) [Mass/Vol] 9.4 g/dL Low 13.0-17.0 [facility] Comment on above: Order Comment: Speci men Type: BLOOD SPECIMEN Ordering Facility: [facility] Address: [address] [place] [address] Performed By: #### 5 7021-8 #### [facility] CLIA [id number] [address] [place] [address] [place] Immature granulocytes (Bld) [#/Vol] 0.11 10*3/uL High <0.10 [facility] Comment on above: Order Comment: Speci men Type: BLOOD SPECIMEN Ordering Facility: [facility] Address: [address] [place] [address] Performed By: #### 5 7021-8 #### [facility] CLIA [id number] [address] [place] [address] [place] Immature granulocytes/100 WBC (Bld) 1.4 % Normal [facility] Comment on above: Order Comment: Speci men Type: BLOOD SPECIMEN Ordering Facility: [facility] Address: [address] [place] [address] Performed By: #### 5 7021-8 #### [facility] CLIA [id number] [address] [place] [address] [place] Lymphocytes (Bld) [#/Vol] 2.03 10*3/uL Normal 1.00-4.00 [facility] Comment on above: Order Comment: Speci men Type: BLOOD SPECIMEN Ordering Facility: [facility] Address: [address] [place] [address] Performed By: #### 5 7021-8 #### [facility] CLIA [id number] [address] [place] [address] [place] Lymphocytes/100 WBC (Bld) 25.4 % Normal [facility] Comment on above: Order Comment: Speci men Type: BLOOD SPECIMEN Ordering Facility: [facility] Address: [address] [place] [address] Performed By: #### 5 7021-8 #### [facility] CLIA [id number] [address] [place] [address] [place] MCH (RBC) [Entitic mass] 26.5 pg Normal 26.0-34.0 [facility] Comment on above: Order Comment: Speci men Type: BLOOD SPECIMEN Ordering Facility: [facility] Address: [address] [place] [address] Performed By: #### 5 7021-8 #### [facility] CLIA [id number] [address] [place] [address] [place] MCHC (RBC) [Mass/Vol] 31.4 g/dL Normal 30.5-36.0 [facility] Comment on above: Order Comment: Speci men Type: BLOOD SPECIMEN Ordering Facility: [facility] Address: [address] [place] [address] Performed By: #### 5 7021-8 #### [facility] CLIA [id number] [address] [place] [address] [place] MCV (RBC) [Entitic vol] 84.2 fL Normal 80.0-100.0 [facility] Comment on above: Order Comment: Speci men Type: BLOOD SPECIMEN Ordering Facility: [facility] Address: [address] [place] [address] Performed By: #### 5 7021-8 #### [facility] CLIA [id number] [address] [place] [address] [place] Monocytes (Bld) [#/Vol] 0.62 10*3/uL Normal <0.87 [facility] Comment on above: Order Comment: Speci men Type: BLOOD SPECIMEN Ordering Facility: [facility] Address: [address] [place] [address] Performed By: #### 5 7021-8 #### [facility] CLIA [id number] [address] [place] [address] [place] Monocytes/100 WBC (Bld) 7.8 % Normal [facility] Comment on above: Order Comment: Speci men Type: BLOOD SPECIMEN Ordering Facility: [facility] Address: [address] [place] [address] Performed By: #### 5 7021-8 #### [facility] CLIA [id number] [address] [place] [address] [place] Neutrophils (Bld) [#/Vol] 4.96 10*3/uL Normal 1.45-7.50 [facility] Comment on above: Order Comment: Speci men Type: BLOOD SPECIMEN Ordering Facility: [facility] Address: [address] [place] [address] Performed By: #### 5 7021-8 #### [facility] CLIA [id number] [address] [place] [address] [place] Neutrophils/100 WBC (Bld) 62.0 % Normal [facility] Comment on above: Order Comment: Speci men Type: BLOOD SPECIMEN Ordering Facility: [facility] Address: [address] [place] [address] Performed By: #### 5 7021-8 #### [facility] CLIA [id number] [address] [place] [address] [place] Nucleated RBC (Bld) [#/Vol] 10*3/uL Normal <0.01 [facility] Comment on above: Order Comment: Speci men Type: BLOOD SPECIMEN Ordering Facility: [facility] Address: [address] [place] [address] Performed By: #### 5 7021-8 #### [facility] CLIA [id number] [address] [place] [address] [place] Nucleated RBC/100 WBC (Bld) [Ratio] 0.0 /100 WBC Normal [facility] Comment on above: Order Comment: Speci men Type: BLOOD SPECIMEN Ordering Facility: [facility] Address: [address] [place] [address] Performed By: #### 5 7021-8 #### [facility] CLIA [id number] [address] [place] [address] [place] Platelet mean volume (Bld) [Entitic vol] 9.3 fL Normal 9.0-12.7 [facility] Comment on above: Order Comment: Speci men Type: BLOOD SPECIMEN Ordering Facility: [facility] Address: [address] [place] [address] Performed By: #### 5 7021-8 #### [facility] CLIA [id number] [address] [place] [address] [place] Platelets (Bld) [#/Vol] 208 10*3/uL Normal 150-400 [facility] Comment on above: Order Comment: Speci men Type: BLOOD SPECIMEN Ordering Facility: [facility] Address: [address] [place] [address] Performed By: #### 5 7021-8 #### [facility] CLIA [id number] [address] [place] [address] [place] RBC (Bld) [#/Vol] 3.55 10*6/uL Low 4.20-6.00 [facility] Comment on above: Order Comment: Speci men Type: BLOOD SPECIMEN Ordering Facility: [facility] Address: [address] [place] [address] Performed By: #### 5 7021-8 #### [facility] CLIA [id number] [address] [place] [address] [place] WBC (Bld) [#/Vol] 7.99 10*3/uL Normal 3.70-11.00 [facility] Comment on above: Order Comment: Speci men Type: BLOOD SPECIMEN Ordering Facility: [facility] Address: [address] [place] [address] Performed By: #### 5 7021-8 #### [facility] CLIA [id number] [address] [place] [address] [place] CONSULTon 11-03-2023 CONSULT HNO ID: [id number] Author: CK HU MD Service: Neurology General [...] (DULCOLAX) 10 mg RECTAL DAILY phenol 1 [place] (CHLORASEPTIC) 1 [place] MUCOUS MEMBRANE (TOPICAL MOUTH AND THROAT) q 2 H PRN Or benzocaine-menthol 1 [place] (CHLORASEPTIC) 1 [place] MUCOUS MEMBRANE (TOPICAL MOUTH AND THROAT) q 2 H PRN clomiPRAMINE 75 mg cap(s) (ANAFRANIL) 75 mg ORAL AT BEDTIME lithium carbonate 300 mg cap(s) (ESKALITH) 300 mg ORAL BID sertraline (ZOLOFT (more content not included)... Normal [facility] CT BRAIN WO IVCONon 11-03-[address] BRAIN WO IVCON * * *Final Report* * * DATE OF EXAM: Nov 03 2023 7:42PM [facility] [place] BRAIN WO IVCON / [...] reduction techniques were required COMPARISON: None. RESULT: Director Rehabilitation Program (topogram) images: No additional findings. Post-operative change: [...] No clear evidence of an acute abnormality. Barrel Rifler Broach: PSCB Transcribe Date/Time: Nov 03 2023 7:43P Dictated by : HERMAN DOWD MD This examination was interpreted and the report reviewed and electronically signed by: HERMAN DOWD MD on Nov 03 2023 7:44PM EST [id number] Normal [facility] Branch, Bld SerPl-sCncon Branch [Moles/Vol] 0.5 mmol/L Low 0.6-1.2 [facility] Comment on above: Order Comment: Speci men Type: BLOOD SPECIMEN Ordering Facility: [facility] Address: [address] [place], [place] [address] Result Comment: Refe rence ranges and high/low indicator flags are provided as general guidelines only. The treating physician must determine appropriate target levels/dosing based on the specific clinical situation. Performed By: #### 1 4334-7, 4086-5 #### [facility] CLIA [id number] [address] [place] [address] [place] Magnesium SerPl-ncon 11-02 Magnesium [Mass/Vol] 2.2 mg/dL Normal 1.7-2.3 [facility] Comment on above: Order Comment: Speci men Type: BLOOD SPECIMEN Ordering Facility: [facility] Address: [address] [place] [address] Performed By: #### 2 777-1, 71364-3, 33957-5 #### [facility] CLIA [id number] [address] [place] [address] [place] [facility] Phosphate [Mass/Vol] 2.5 mg/dL Low 2.7-4.8 [facility] Comment on above: Order Comment: Speci men Type: BLOOD SPECIMEN Ordering Facility: [facility] Address: [address] [place] [address] Performed By: #### 2 777-1, 85586-2, #### [facility] CLIA [id number] [address] [place] [address] [place] THERAPY NTon 11-03-2023 THERAPY NT HNO ID: [id number] Author: ANKITA JC PT, DPT Service: Physical Therapy Author Type: Physical Therapist Type: Therapy (PT/OT/Speech/Resp) Filed: 11/03/2023 13:48 Note Text: PHYSICAL THERAPY MISSED VISIT SERVICE DATE: 11/03/2023 SERVICE TIME: 1347 ROOM: [place] [address] Patient not seen due to Patient Not Available. Another service at bedside upon time of arrival x2 attempts. Will follow up as able/appropriate. SIGNATURE: Ankita Fine, PT, DPT PATIENT NAME: Johnny Devine DATE: November 03, 2023 TIME: 1:48 PM Normal [facility] Valproate SerPl-mCncon 11-02 Valproate [Mass/Vol] 53.0 ug/mL Normal 50.0-100.0 [facility] Comment on above: Order Comment: Speci men Type: BLOOD SPECIMEN Ordering Facility: [facility] Address: [address] [place] [address] Result Comment: Refe rence ranges and high/low indicator flags are provided as general guidelines only. The treating physician must determine appropriate target levels/dosing based on the specific clinical situation. Performed By: #### 1 4334-7, 4086-5 #### [facility] CLIA [id number] [address] [place] [address] [place] Basic metabolic 2000 panelon 11-02-2023 Anion gap [Moles/Vol] 8 mmol/L Low 9-18 [facility] Comment on above: Order Comment: Speci men Type: BLOOD SPECIMEN Ordering Facility: [facility] Address: [address] [place] [address] Performed By: #### 2 777-1, 15678-8, #### [facility] CLIA [id number] [address] [place] [address] [place] Calcium [Mass/Vol] 7.7 mg/dL Low 8.5-10.2 [facility] Comment on above: Order Comment: Speci men Type: BLOOD SPECIMEN Ordering Facility: [facility] Address: [address] [place] [address] Performed By: #### 2 777-1, 22650-8, #### [facility] CLIA [id number] [address] [place] [address] [place] Chloride [Moles/Vol] 109 mmol/L High 97-105 [facility] Comment on above: Order Comment: Speci men Type: BLOOD SPECIMEN Ordering Facility: [facility] Address: [address] [place] [address] Performed By: #### 2 777-1, 87520-8, #### [facility] CLIA [id number] [address] [place] [address] [place] CO2 [Moles/Vol] 24 mmol/L Normal 22-30 [facility] Comment on above: Order Comment: Speci men Type: BLOOD SPECIMEN Ordering Facility: [facility] Address: [address] [place] [address] Performed By: #### 2 777-1, 72681-8, #### [facility] CLIA [id number] [address] [place] [address] [place] Creatinine [Mass/Vol] 0.66 mg/dL Low 0.73-1.22 [facility] Comment on above: Order Comment: Speci men Type: BLOOD SPECIMEN Ordering Facility: [facility] Address: [address] [place] [address] Performed By: #### 2 777-1, 65852-6, #### [facility] CLIA [id number] [address] [place] [address] [place] Creatinine and Glomerular filtration rate.predicted panel (S/P/Bld) 129 mL/min/1.73m??? Normal >=60 [facility] Comment on above: Order Comment: Speci men Type: BLOOD SPECIMEN Ordering Facility: [facility] Address: [address] [place] [address] Result Comment: Lor mated Glomerular Filtration Rate [...] actual GFR. Performed By: #### 2 777-1, 98708-1, #### [facility] CLIA [id number] [address] [place] [address] [place] Glucose [Mass/Vol] 109 mg/dL High 74-99 [facility] Comment on above: Order Comment: Sana zuñiga Type: BLOOD SPECIMEN Ordering Facility: [facility] Address: [address] [place] [address] Result Comment: The [place] Diabetes [employer] (ADA) provides guidance for cutoff [...] Standards of Medical Care in Diabetes 2016, [place] [employer]. Diabetes Care. 2016.39(Suppl 1). Performed By: #### 2 777-1, 54382-8, #### [facility] CLIA [id number] [address] [place] [address] [place] Potassium [Moles/Vol] 3.5 mmol/L Low 3.7-5.1 [facility] Comment on above: Order Comment: Akbari men Type: BLOOD SPECIMEN Ordering Facility: [facility] Address: [address] [place] [address] Performed By: #### 2 777-1, 90653-3, #### [facility] CLIA [id number] [address] [place] [address] [place] Sodium [Moles/Vol] 141 mmol/L Normal 136-144 [facility] Comment on above: Order Comment: Akbari men Type: BLOOD SPECIMEN Ordering Facility: [facility] Address: [address] [place] [address] Performed By: #### 2 777-1, 57209-2, #### [facility] CLIA [id number] [address] [place] [address] [place] Urea nitrogen [Mass/Vol] 7 mg/dL Low 9-24 [facility] Comment on above: Order Comment: Speci men Type: BLOOD SPECIMEN Ordering Facility: [facility] Address: [address] [place] [address] Performed By: #### 2 777-1, 46054-0, #### [facility] CLIA [id number] [address] [place] [address] [place] CBC W Auto Differential pane l (Bld)on 11-02-2023 Basophils (Bld) [#/Vol] 0.04 10*3/uL Normal <0.11 [facility] Comment on above: Order Comment: Speci men Type: BLOOD SPECIMEN Ordering Facility: [facility] Address: [address] [place] [address] Performed By: #### 2 4321-2, , 2776-08 #### [facility] CLIA [id number] [address] [place] [address] [place] Basophils/100 WBC (Bld) 0.5 % Normal [facility] Comment on above: Order Comment: Speci men Type: BLOOD SPECIMEN Ordering Facility: [facility] Address: [address] [place] [address] Performed By: #### 2 4321-2, , 2776-08 #### [facility] CLIA [id number] [address] [place] [address] [place] Differential cell count method Nom (Bld) Auto Normal [facility] Comment on above: Order Comment: Speci men Type: BLOOD SPECIMEN Ordering Facility: [facility] Address: [address] [place] [address] Performed By: #### 2 4321-2, , 2776-08 #### [facility] CLIA [id number] [address] [place] [address] [place] Eosinophils (Bld) [#/Vol] 0.24 10*3/uL Normal <0.46 [facility] Comment on above: Order Comment: Speci men Type: BLOOD SPECIMEN Ordering Facility: [facility] Address: [address] [place] [address] Performed By: #### 2 4321-2, , 2776-08 #### [facility] CLIA [id number] [address] [place] [address] [place] Eosinophils/100 WBC (Bld) 3.0 % Normal [facility] Comment on above: Order Comment: Speci men Type: BLOOD SPECIMEN Ordering Facility: [facility] Address: [address] [place] [address] Performed By: #### 2 432-2, , 2776-08 #### [facility] CLIA [id number] [address] [place] [address] [place] Erythrocyte distribution width (RBC) [Ratio] 14.0 % Normal 11.5-15.0 [facility] Comment on above: Order Comment: Speci men Type: BLOOD SPECIMEN Ordering Facility: [facility] Address: [address] [place] [address] Performed By: #### 2 432-2, , 2776-08 #### [facility] CLIA [id number] [address] [place] [address] [place] Hematocrit (Bld) [Volume fraction] 36.5 % Low 39.0-51.0 [facility] Comment on above: Order Comment: Speci men Type: BLOOD SPECIMEN Ordering Facility: [facility] Address: [address] [place] [address] Performed By: #### 2 4321-2, , 2776-08 #### [facility] CLIA [id number] [address] [place] [address] [place] Hemoglobin (Bld) [Mass/Vol] 11.2 g/dL Low 13.0-17.0 [facility] Comment on above: Order Comment: Speci men Type: BLOOD SPECIMEN Ordering Facility: [facility] Address: [address] [place] [address] Performed By: #### 2 4321-2, , 2776-08 #### [facility] CLIA [id number] [address] [place] [address] [place] Immature granulocytes (Bld) [#/Vol] 0.10 10*3/uL High <0.10 [facility] Comment on above: Order Comment: Speci men Type: BLOOD SPECIMEN Ordering Facility: [facility] Address: [address] [place] [address] Performed By: #### 2 432-2, , 2776-08 #### [facility] CLIA [id number] [address] [place] [address] [place] Immature granulocytes/100 WBC (Bld) 1.3 % Normal [facility] Comment on above: Order Comment: Speci men Type: BLOOD SPECIMEN Ordering Facility: [facility] Address: [address] [place] [address] Performed By: #### 2 4321-2, , 2776-08 #### [facility] CLIA [id number] [address] [place] [address] [place] Lymphocytes (Bld) [#/Vol] 1.78 10*3/uL Normal 1.00-4.00 [facility] Comment on above: Order Comment: Speci men Type: BLOOD SPECIMEN Ordering Facility: [facility] Address: [address] [place] [address] Performed By: #### 2 4321-2, , 2776-08 #### [facility] CLIA [id number] [address] [place] [address] [place] Lymphocytes/100 WBC (Bld) 22.3 % Normal [facility] Comment on above: Order Comment: Speci men Type: BLOOD SPECIMEN Ordering Facility: [facility] Address: [address] [place] [address] Performed By: #### 2 4321-2, , 2776-08 #### [facility] CLIA [id number] [address] [place] [address] [place] MCH (RBC) [Entitic mass] 26.2 pg Normal 26.0-34.0 [facility] Comment on above: Order Comment: Speci men Type: BLOOD SPECIMEN Ordering Facility: [facility] Address: [address] [place] [address] Performed By: #### 2 4321-2, , 2776-08 #### [facility] CLIA [id number] [address] [place] [address] [place] MCHC (RBC) [Mass/Vol] 30.7 g/dL Normal 30.5-36.0 [facility] Comment on above: Order Comment: Speci men Type: BLOOD SPECIMEN Ordering Facility: [facility] Address: [address] [place] [address] Performed By: #### 2 4321-2, , 2776-08 #### [facility] CLIA [id number] [address] [place] [address] [place] MCV (RBC) [Entitic vol] 85.5 fL Normal 80.0-100.0 [facility] Comment on above: Order Comment: Speci men Type: BLOOD SPECIMEN Ordering Facility: [facility] Address: [address] [place] [address] Performed By: #### 2 4321-2, , 2776-08 #### [facility] CLIA [id number] [address] [place], [place] [address] [place] Monocytes (Bld) [#/Vol] 0.58 10*3/uL Normal <0.87 [facility] Comment on above: Order Comment: Speci men Type: BLOOD SPECIMEN Ordering Facility: [facility] Address: [address] [place] [address] Performed By: #### 2 4321-2, , 2776-08 #### [facility] CLIA [id number] [address] [place] [address] [place] Monocytes/100 WBC (Bld) 7.3 % Normal [facility] Comment on above: Order Comment: Speci men Type: BLOOD SPECIMEN Ordering Facility: [facility] Address: [address] [place] [address] Performed By: #### 2 4321-2, , 2776-08 #### [facility] CLIA [id number] [address] [place] [address] [place] Neutrophils (Bld) [#/Vol] 5.24 10*3/uL Normal 1.45-7.50 [facility] Comment on above: Order Comment: Speci men Type: BLOOD SPECIMEN Ordering Facility: [facility] Address: [address] [place] [address] Performed By: #### 2 432-2, , 2776-08 #### [facility] CLIA [id number] [address] [place] [address] [place] Neutrophils/100 WBC (Bld) 65.6 % Normal [facility] Comment on above: Order Comment: Speci men Type: BLOOD SPECIMEN Ordering Facility: [facility] Address: [address] [place] [address] Performed By: #### 2 4321-2, , 2776-08 #### [facility] CLIA [id number] [address] [place] [address] [place] Nucleated RBC (Bld) [#/Vol] 10*3/uL Normal <0.01 [facility] Comment on above: Order Comment: Speci men Type: BLOOD SPECIMEN Ordering Facility: [facility] Address: [address] [place] [address] Performed By: #### 2 4321-2, , 2776-08 #### [facility] CLIA [id number] [address] [place] [address] [place] Nucleated RBC/100 WBC (Bld) [Ratio] 0.0 /100 WBC Normal [facility] Comment on above: Order Comment: Speci men Type: BLOOD SPECIMEN Ordering Facility: [facility] Address: [address] [place] [address] Performed By: #### 2 4321-2, , 2776-08 #### [facility] CLIA [id number] [address] [place] [address] [place] Platelet mean volume (Bld) [Entitic vol] 9.7 fL Normal 9.0-12.7 [facility] Comment on above: Order Comment: Speci men Type: BLOOD SPECIMEN Ordering Facility: [facility] Address: [address] [place] [address] Performed By: #### 2 4321-2, , 2776-08 #### [facility] CLIA [id number] [address] [place] [address] [place] Platelets (Bld) [#/Vol] 199 10*3/uL Normal 150-400 [facility] Comment on above: Order Comment: Speci men Type: BLOOD SPECIMEN Ordering Facility: [facility] Address: [address] [place] [address] Performed By: #### 2 4321-2, , 2776-08 #### [facility] CLIA [id number] [address] [place], [place] [address] [place] RBC (Bld) [#/Vol] 4.27 10*6/uL Normal 4.20-6.00 [facility] Comment on above: Order Comment: Speci men Type: BLOOD SPECIMEN Ordering Facility: [facility] Address: [address] [place] [address] Performed By: #### 2 4321-2, 64445-7, 2776-08 #### [facility] CLIA [id number] [address] [place] [address] [place] WBC (Bld) [#/Vol] 7.98 10*3/uL Normal 3.70-11.00 [facility] Comment on above: Order Comment: Speci men Type: BLOOD SPECIMEN Ordering Facility: [facility] Address: [address] [place] [address] Performed By: #### 2 4321-2, , 2776-08 #### [facility] CLIA [id number] [address] [place] [address] [place] Magnesium SerPl-mCncon 11-01 Magnesium [Mass/Vol] 2.3 mg/dL Normal 1.7-2.3 [facility] Comment on above: Order Comment: Speci men Type: BLOOD SPECIMEN Ordering Facility: [facility] Address: [address] [place] [address] Performed By: #### 2 777-1, 58021-3, #### [facility] CLIA [id number] [address] [place] [address] [place] Phosphate SerPl-mCncon 11-01 Phosphate [Mass/Vol] 2.6 mg/dL Low 2.7-4.8 [facility] Comment on above: Order Comment: Speci men Type: BLOOD SPECIMEN Ordering Facility: [facility] Address: [address] [place] [address] Performed By: #### 2 777-1, 35692-8, #### [facility] CLIA [id number] [address] [place] [address] [place] XR ABDOMEN 1V [...] small bowel. Findings suggestive of improving ileus. 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 Rifler Broach: [facility] Transcribe Date/Time: Nov 02 2023 11:50A Dictated by : VERONICA CARTER MD This examination was interpreted and the report reviewed and electronically signed by: VERONICA CARTER MD on Nov 02 2023 11:52AM EST [id number] Normal [facility] Basic metabolic 2000 panelon 11-01-2023 Anion gap [Moles/Vol] 10 mmol/L Normal 9-18 [facility] Comment on above: Order Comment: Speci men Type: BLOOD SPECIMEN Ordering Facility: [facility] Address: [address] [place] [address] Performed By: #### 5 7021-8 #### [facility] CLIA [id number] [address] [place] [address] [place] Calcium [Mass/Vol] 7.9 mg/dL Low 8.5-10.2 [facility] Comment on above: Order Comment: Speci men Type: BLOOD SPECIMEN Ordering Facility: [facility] Address: [address] [place] [address] Performed By: #### 5 7021-8 #### [facility] CLIA [id number] [address] [place] [address] [place] Chloride [Moles/Vol] 114 mmol/L High 97-105 [facility] Comment on above: Order Comment: Speci men Type: BLOOD SPECIMEN Ordering Facility: [facility] Address: [address] [place] [address] Performed By: #### 5 7021-8 #### [facility] CLIA [id number] [address] [place] [address] [place] CO2 [Moles/Vol] 22 mmol/L Normal 22-30 [facility] Comment on above: Order Comment: Speci men Type: BLOOD SPECIMEN Ordering Facility: [facility] Address: [address] [place] [address] Performed By: #### 5 7021-8 #### [facility] CLIA [id number] [address] [place] [address] [place] Creatinine [Mass/Vol] 0.74 mg/dL Normal 0.73-1.22 [facility] Comment on above: Order Comment: Speci men Type: BLOOD SPECIMEN Ordering Facility: [facility] Address: [address] [place] [address] Performed By: #### 5 7021-8 #### [facility] CLIA [id number] [address] [place] [address] [place] Creatinine and Glomerular filtration rate.predicted panel (S/P/Bld) 124 mL/min/1.73m??? Normal >=60 [facility] Comment on above: Order Comment: Speci men Type: BLOOD SPECIMEN Ordering Facility: [facility] Address: [address] [place] [address] Result Comment: Lor mated Glomerular Filtration Rate [...] GFR. Performed By: #### 5 7021-8 #### [facility] CLIA [id number] [address] [place] [address] [place] Glucose [Mass/Vol] 98 mg/dL Normal 74-99 [facility] Comment on above: Order Comment: Sana zuñiga Type: BLOOD SPECIMEN Ordering Facility: [facility] Address: [address] [place] [address] Result Comment: The [place] [employer] (ADA) provides guidance for cutoff [...] Standards of Medical Care in Diabetes 2016, [place] [employer]. Diabetes Care. 2016.39(Suppl 1). Performed By: #### 5 7021-8 #### [facility] CLIA [id number] [address] [place] [address] [place] Potassium [Moles/Vol] 3.9 mmol/L Normal 3.7-5.1 [facility] Comment on above: Order Comment: Akbari men Type: BLOOD SPECIMEN Ordering Facility: [facility] Address: [address] [place] [address] Performed By: #### 5 7021-8 #### [facility] CLIA [id number] [address] [place] [address] [place] Sodium [Moles/Vol] 146 mmol/L High 136-144 [facility] Comment on above: Order Comment: Sana zuñiga Type: BLOOD SPECIMEN Ordering Facility: [facility] Address: [address] [place] [address] Performed By: #### 5 7021-8 #### [facility] CLIA [id number] [address] [place] [address] [place] Urea nitrogen [Mass/Vol] 9 mg/dL Normal 9-24 [facility] Comment on above: Order Comment: Speci men Type: BLOOD SPECIMEN Ordering Facility: [facility] Address: [address] [place] [address] Performed By: #### 5 7021-8 #### [facility] CLIA [id number] [address] [place] [address] [place] CBC W Auto Differential pane l (Bld)on 11-01-2023 Basophils (Bld) [#/Vol] 10*3/uL Normal <0.11 [facility] Comment on above: Order Comment: Speci men Type: BLOOD SPECIMENOrdering Facility: [facility] Address: [address] [place] [address] Performed By: #### 5 7021-8 ####[facility] [id number] [place] [address] [place] Basophils/100 WBC (Bld) 0.3 % Normal [facility] Comment on above: Order Comment: Speci men Type: BLOOD SPECIMENOrdering Facility: [facility] Address: [address] [place] [address] Performed By: #### 5 7021-8 ####[facility] [id number] [place] [address] [place] Differential cell count method Nom (Bld) Auto Normal [facility] Comment on above: Order Comment: Speci men Type: BLOOD SPECIMENOrdering Facility: [facility] Address: [address] [place] [address] Performed By: #### 5 7021-8 ####[facility] [id number] [place] [address] [place] Eosinophils (Bld) [#/Vol] 0.23 10*3/uL Normal <0.46 [facility] Comment on above: Order Comment: Speci men Type: BLOOD SPECIMENOrdering Facility: [facility] Address: [address] [place] [address] Performed By: #### 5 7021-8 ####[facility] [id number] [place] [address] [place] Eosinophils/100 WBC (Bld) 3.0 % Normal [facility] Comment on above: Order Comment: Speci men Type: BLOOD SPECIMENOrdering Facility: [facility] Address: [address] [place] [address] Performed By: #### 5 7021-8 ####[facility]IA [id number] [place] [address] [place] Erythrocyte distribution width (RBC) [Ratio] 14.6 % Normal 11.5-15.0 [facility] Comment on above: Order Comment: Speci men Type: BLOOD SPECIMENOrdering Facility: [facility] Address: [address] [place] [address] Performed By: #### 5 7021-8 ####[facility]IA [id number] [place] [address] [place] Hematocrit (Bld) [Volume fraction] 28.6 % Low 39.0-51.0 [facility] Comment on above: Order Comment: Speci men Type: BLOOD SPECIMENOrdering Facility: [facility] Address: [address] [place] [address] Performed By: #### 5 7021-8 ####[facility]IA [id number] [place] [address] [place] Hemoglobin (Bld) [Mass/Vol] 9.0 g/dL Low 13.0-17.0 [facility] Comment on above: Order Comment: Speci men Type: BLOOD SPECIMENOrdering Facility: [facility] Address: [address] [place] [address] Performed By: #### 5 7021-8 ####[facility]CLIA [id number] [place] [address] [place] Immature granulocytes (Bld) [#/Vol] 0.05 10*3/uL Normal <0.10 [facility] Comment on above: Order Comment: Speci men Type: BLOOD SPECIMENOrdering Facility: [facility] Address: [address] [place] [address] Performed By: #### 5 7021-8 ####[facility]CLIA [id number] [place] [address] [place] Immature granulocytes/100 WBC (Bld) 0.7 % Normal [facility] Comment on above: Order Comment: Speci men Type: BLOOD SPECIMENOrdering Facility: [facility] Address: [address] [place] [address] Performed By: #### 5 7021-8 ####[facility]CLIA [id number] [place] [address] [place] Lymphocytes (Bld) [#/Vol] 1.86 10*3/uL Normal 1.00-4.00 [facility] Comment on above: Order Comment: Speci men Type: BLOOD SPECIMENOrdering Facility: [facility] Address: [address] [place] [address] Performed By: #### 5 7021-8 ####[facility]CLIA [id number] [place] [address] [place] Lymphocytes/100 WBC (Bld) 24.3 % Normal [facility] Comment on above: Order Comment: Speci men Type: BLOOD SPECIMENOrdering Facility: [facility] Address: [address] [place] [address] Performed By: #### 5 7021-8 ####[facility]CLIA [id number] [place] [address] [place] MCH (RBC) [Entitic mass] 26.8 pg Normal 26.0-34.0 [facility] Comment on above: Order Comment: Speci men Type: BLOOD SPECIMENOrdering Facility: [facility] Address: [address] [place] [address] Performed By: #### 5 7021-8 ####[facility]CLIA [id number] [place] [address] [place] MCHC (RBC) [Mass/Vol] 31.5 g/dL Normal 30.5-36.0 [facility] Comment on above: Order Comment: Speci men Type: BLOOD SPECIMENOrdering Facility: [facility] Address: [address] [place] [address] Performed By: #### 5 7021-8 ####[facility]IA [id number] [place] [address] [place] MCV (RBC) [Entitic vol] 85.1 fL Normal 80.0-100.0 [facility] Comment on above: Order Comment: Speci men Type: BLOOD SPECIMENOrdering Facility: [facility] Address: [address] [place] [address] Performed By: #### 5 7021-8 ####[facility] LABIA [id number] [place] [address] [place] Monocytes (Bld) [#/Vol] 0.62 10*3/uL Normal <0.87 [facility] Comment on above: Order Comment: Speci men Type: BLOOD SPECIMENOrdering Facility: [facility] Address: [address] [place] [address] Performed By: #### 5 7021-8 ####[facility]IA [id number] [place] [address] [place] Monocytes/100 WBC (Bld) 8.1 % Normal [facility] Comment on above: Order Comment: Speci men Type: BLOOD SPECIMENOrdering Facility: [facility] Address: [address] [place] [address] Performed By: #### 5 7021-8 ####[facility]CLIA [id number] [place] [address] [place] Neutrophils (Bld) [#/Vol] 4.87 10*3/uL Normal 1.45-7.50 [facility] Comment on above: Order Comment: Speci men Type: BLOOD SPECIMENOrdering Facility: [facility] Address: [address] [place] [address] Performed By: #### 5 7021-8 ####[facility]CLIA [id number] [place] [address] [place] Neutrophils/100 WBC (Bld) 63.6 % Normal [facility] Comment on above: Order Comment: Speci men Type: BLOOD SPECIMENOrdering Facility: [facility] Address: [address] [place] [address] Performed By: #### 5 7021-8 ####[facility]CLIA [id number] [place] [address] [place] Nucleated RBC (Bld) [#/Vol] 10*3/uL Normal <0.01 [facility] Comment on above: Order Comment: Speci men Type: BLOOD SPECIMENOrdering Facility: [facility] Address: [address] [place] [address] Performed By: #### 5 7021-8 ####[facility]CLIA [id number] [place] [address] [place] Nucleated RBC/100 WBC (Bld) [Ratio] 0.0 /100 WBC Normal [facility] Comment on above: Order Comment: Speci men Type: BLOOD SPECIMENOrdering Facility: [facility] Address: [address] [place] [address] Performed By: #### 5 7021-8 ####[facility]CLIA [id number] [place] [address] [place] Platelet mean volume (Bld) [Entitic vol] 9.6 fL Normal 9.0-12.7 [facility] Comment on above: Order Comment: Speci men Type: BLOOD SPECIMENOrdering Facility: [facility] Address: [address] [place] [address] Performed By: #### 5 7021-8 ####[facility]CLIA [id number] [place] [address] [place] Platelets (Bld) [#/Vol] 148 10*3/uL Low 150-400 [facility] Comment on above: Order Comment: Speci men Type: BLOOD SPECIMENOrdering Facility: [facility] Address: [address] [place] [address] Performed By: #### 5 7021-8 ####[facility]IA [id number] [place] [address] [place] RBC (Bld) [#/Vol] 3.36 10*6/uL Low 4.20-6.00 [facility] Comment on above: Order Comment: Speci men Type: BLOOD SPECIMENOrdering Facility: [facility] Address: [address] [place] [address] Performed By: #### 5 7021-8 ####[facility] LABIA [id number] [place] [address] [place] WBC (Bld) [#/Vol] 7.65 10*3/uL Normal 3.70-11.00 [facility] Comment on above: Order Comment: Speci men Type: BLOOD SPECIMENOrdering Facility: [facility] Address: [address] [place] [address] Performed By: #### 5 7021-8 ####[facility] LABIA [id number] [place] [address] [place] Magnesium SerPl-mCncon 10-31 Magnesium [Mass/Vol] 2.4 mg/dL High 1.7-2.3 [facility] Comment on above: Order Comment: Speci men Type: BLOOD SPECIMEN Ordering Facility: [facility] Address: [address] [place] [address] Performed By: #### 5 7021-8 #### [facility] CLIA [id number] [address] [place] [address] [place] Phosphate SerPl-mCncon 10-31 Phosphate [Mass/Vol] 2.3 mg/dL Low 2.7-4.8 [facility] Comment on above: Order Comment: Speci men Type: BLOOD SPECIMEN Ordering Facility: [facility] Address: [address] [place] [address] Performed By: #### 5 7021-8 #### [facility] CLIA [id number] [address] [place] [address] [place] Basic metabolic 2000 panelon 10-31-2023 Anion gap [Moles/Vol] 10 mmol/L Normal 9-18 [facility] Comment on above: Order Comment: Speci men Type: BLOOD SPECIMEN Ordering Facility: [facility] Address: [address] [place] [address] Performed By: #### 2 777-1, 46622-5, #### [facility] CLIA [id number] [address] [place] [address] [place] Calcium [Mass/Vol] 7.8 mg/dL Low 8.5-10.2 [facility] Comment on above: Order Comment: Speci men Type: BLOOD SPECIMEN Ordering Facility: [facility] Address: [address] [place] [address] Performed By: #### 2 777-1, 58871-7, 63243-1 #### [facility] CLIA [id number] [address] [place] [address] [place] Chloride [Moles/Vol] 115 mmol/L High 97-105 [facility] Comment on above: Order Comment: Speci men Type: BLOOD SPECIMEN Ordering Facility: [facility] Address: [address] [place], [place] [address] Performed By: #### 2 777-1, 31041-1, #### [facility] CLIA [id number] [address] [place], [place] [address] [place] CO2 [Moles/Vol] 23 mmol/L Normal 22-30 [facility] Comment on above: Order Comment: Speci men Type: BLOOD SPECIMEN Ordering Facility: [facility] Address: [address] [place] [address] Performed By: #### 2 777-1, 99973-1, #### [facility] CLIA [id number] [address] [place] [address] [place] Creatinine [Mass/Vol] 0.72 mg/dL Low 0.73-1.22 [facility] Comment on above: Order Comment: Speci men Type: BLOOD SPECIMEN Ordering Facility: [facility] Address: [address] [place] [address] Performed By: #### 2 777-1, , #### [facility] CLIA [id number] [address] [place] [address] [place] Creatinine and Glomerular filtration rate.predicted panel (S/P/Bld) 125 mL/min/1.73m??? Normal >=60 [facility] Comment on above: Order Comment: Speci men Type: BLOOD SPECIMEN Ordering Facility: [facility] Address: [address] [place] [address] Result Comment: Lor mated Glomerular Filtration Rate [...] actual GFR. Performed By: #### 2 777-1, 88576-6, #### [facility] CLIA [id number] [address] [place] [address] [place] Glucose [Mass/Vol] 93 mg/dL Normal 74-99 [facility] Comment on above: Order Comment: Sana men Type: BLOOD SPECIMEN Ordering Facility: [facility] Address: [address] [place] [address] Result Comment: The [place] [employer] (ADA) provides guidance for cutoff [...] Standards of Medical Care in Diabetes 2016, [place] [employer]. Diabetes Care. 2016.39(Suppl 1). Performed By: #### 2 777-1, , #### [facility] CLIA [id number] [address] [place] [address] [place] Potassium [Moles/Vol] 3.9 mmol/L Normal 3.7-5.1 [facility] Comment on above: Order Comment: Akbari men Type: BLOOD SPECIMEN Ordering Facility: [facility] Address: [address] [place] [address] Performed By: #### 2 777-1, 25769-4, #### [facility] CLIA [id number] [address] [place] [address] [place] Sodium [Moles/Vol] 148 mmol/L High 136-144 [facility] Comment on above: Order Comment: Akbari men Type: BLOOD SPECIMEN Ordering Facility: [facility] Address: [address] [place] [address] Performed By: #### 2 777-1, 79057-2, #### [facility] CLIA [id number] [address] [place] [address] [place] Urea nitrogen [Mass/Vol] 8 mg/dL Low 9-24 [facility] Comment on above: Order Comment: Speci men Type: BLOOD SPECIMEN Ordering Facility: [facility] Address: [address] [place] [address] Performed By: #### 2 777-1, 38252-8, #### [facility] CLIA [id number] [address] [place] [address] [place] CBC W Auto Differential pane l (Bld)on 10-31-2023 Basophils (Bld) [#/Vol] 10*3/uL Normal <0.11 [facility] Comment on above: Order Comment: Speci men Type: BLOOD SPECIMEN Ordering Facility: [facility] Address: [address] [place] [address] Performed By: #### 5 7021-8 #### [facility] CLIA [id number] [address] [place] [address] [place] Basophils/100 WBC (Bld) 0.2 % Normal [facility] Comment on above: Order Comment: Speci men Type: BLOOD SPECIMEN Ordering Facility: [facility] Address: [address] [place] [address] Performed By: #### 5 7021-8 #### [facility] CLIA [id number] [address] [place] [address] [place] Differential cell count method Nom (Bld) Auto Normal [facility] Comment on above: Order Comment: Speci men Type: BLOOD SPECIMEN Ordering Facility: [facility] Address: [address] [place] [address] Performed By: #### 5 7021-8 #### [facility] CLIA [id number] [address] [place] [address] [place] Eosinophils (Bld) [#/Vol] 0.18 10*3/uL Normal <0.46 [facility] Comment on above: Order Comment: Speci men Type: BLOOD SPECIMEN Ordering Facility: [facility] Address: [address] [place] [address] Performed By: #### 5 7021-8 #### [facility] CLIA [id number] [address] [place] [address] [place] Eosinophils/100 WBC (Bld) 1.9 % Normal [facility] Comment on above: Order Comment: Speci men Type: BLOOD SPECIMEN Ordering Facility: [facility] Address: [address] [place] [address] Performed By: #### 5 7021-8 #### [facility] CLIA [id number] [address] [place] [address] [place] Erythrocyte distribution width (RBC) [Ratio] 14.5 % Normal 11.5-15.0 [facility] Comment on above: Order Comment: Speci men Type: BLOOD SPECIMEN Ordering Facility: [facility] Address: [address] [place] [address] Performed By: #### 5 7021-8 #### [facility] CLIA [id number] [address] [place] [address] [place] Hematocrit (Bld) [Volume fraction] 30.2 % Low 39.0-51.0 [facility] Comment on above: Order Comment: Speci men Type: BLOOD SPECIMEN Ordering Facility: [facility] Address: [address] [place] [address] Performed By: #### 5 7021-8 #### [facility] CLIA [id number] [address] [place] [address] [place] Hemoglobin (Bld) [Mass/Vol] 9.4 g/dL Low 13.0-17.0 [facility] Comment on above: Order Comment: Speci men Type: BLOOD SPECIMEN Ordering Facility: [facility] Address: [address] [place] [address] Performed By: #### 5 7021-8 #### [facility] CLIA [id number] [address] [place] [address] [place] Immature granulocytes (Bld) [#/Vol] 0.06 10*3/uL Normal <0.10 [facility] Comment on above: Order Comment: Speci men Type: BLOOD SPECIMEN Ordering Facility: [facility] Address: [address] [place] [address] Performed By: #### 5 7021-8 #### [facility] CLIA [id number] [address] [place] [address] [place] Immature granulocytes/100 WBC (Bld) 0.6 % Normal [facility] Comment on above: Order Comment: Speci men Type: BLOOD SPECIMEN Ordering Facility: [facility] Address: [address] [place] [address] Performed By: #### 5 7021-8 #### [facility] CLIA [id number] [address] [place] [address] [place] Lymphocytes (Bld) [#/Vol] 1.61 10*3/uL Normal 1.00-4.00 [facility] Comment on above: Order Comment: Speci men Type: BLOOD SPECIMEN Ordering Facility: [facility] Address: [address] [place] [address] Performed By: #### 5 7021-8 #### [facility] CLIA [id number] [address] [place] [address] [place] Lymphocytes/100 WBC (Bld) 16.8 % Normal [facility] Comment on above: Order Comment: Speci men Type: BLOOD SPECIMEN Ordering Facility: [facility] Address: [address] [place] [address] Performed By: #### 5 7021-8 #### [facility] CLIA [id number] [address] [place] [address] [place] MCH (RBC) [Entitic mass] 26.5 pg Normal 26.0-34.0 [facility] Comment on above: Order Comment: Speci men Type: BLOOD SPECIMEN Ordering Facility: [facility] Address: [address] [place] [address] Performed By: #### 5 7021-8 #### [facility] CLIA [id number] [address] [place] [address] [place] MCHC (RBC) [Mass/Vol] 31.1 g/dL Normal 30.5-36.0 [facility] Comment on above: Order Comment: Speci men Type: BLOOD SPECIMEN Ordering Facility: [facility] Address: [address] [place] [address] Performed By: #### 5 7021-8 #### [facility] CLIA [id number] [address] [place] [address] [place] MCV (RBC) [Entitic vol] 85.1 fL Normal 80.0-100.0 [facility] Comment on above: Order Comment: Speci men Type: BLOOD SPECIMEN Ordering Facility: [facility] Address: [address] [place] [address] Performed By: #### 5 7021-8 #### [facility] CLIA [id number] [address] [place] [address] [place] Monocytes (Bld) [#/Vol] 0.88 10*3/uL High <0.87 [facility] Comment on above: Order Comment: Speci men Type: BLOOD SPECIMEN Ordering Facility: [facility] Address: [address] [place] [address] Performed By: #### 5 7021-8 #### [facility] CLIA [id number] [address] [place] [address] [place] Monocytes/100 WBC (Bld) 9.2 % Normal [facility] Comment on above: Order Comment: Speci men Type: BLOOD SPECIMEN Ordering Facility: [facility] Address: [address] [place] [address] Performed By: #### 5 7021-8 #### [facility] CLIA [id number] [address] [place] [address] [place] Neutrophils (Bld) [#/Vol] 6.84 10*3/uL Normal 1.45-7.50 [facility] Comment on above: Order Comment: Speci men Type: BLOOD SPECIMEN Ordering Facility: [facility] Address: [address] [place] [address] Performed By: #### 5 7021-8 #### [facility] CLIA [id number] [address] [place] [address] [place] Neutrophils/100 WBC (Bld) 71.3 % Normal [facility] Comment on above: Order Comment: Speci men Type: BLOOD SPECIMEN Ordering Facility: [facility] Address: [address] [place] [address] Performed By: #### 5 7021-8 #### [facility] CLIA [id number] [address] [place] [address] [place] Nucleated RBC (Bld) [#/Vol] 10*3/uL Normal <0.01 [facility] Comment on above: Order Comment: Speci men Type: BLOOD SPECIMEN Ordering Facility: [facility] Address: [address] [place] [address] Performed By: #### 5 7021-8 #### [facility] CLIA [id number] [address] [place] [address] [place] Nucleated RBC/100 WBC (Bld) [Ratio] 0.0 /100 WBC Normal [facility] Comment on above: Order Comment: Speci men Type: BLOOD SPECIMEN Ordering Facility: [facility] Address: [address] [place] [address] Performed By: #### 5 7021-8 #### [facility] CLIA [id number] [address] [place] [address] [place] Platelet mean volume (Bld) [Entitic vol] 9.8 fL Normal 9.0-12.7 [facility] [facility] Comment on above: Order Comment: Speci men Type: BLOOD SPECIMEN Ordering Facility: [facility] Address: [address] [place] [address] Performed By: #### 5 7021-8 #### [facility] CLIA [id number] [address] [place] [address] [place] Platelets (Bld) [#/Vol] 144 10*3/uL Low 150-400 [facility] Comment on above: Order Comment: Speci men Type: BLOOD SPECIMEN Ordering Facility: [facility] Address: [address] [place] [address] Result Comment: Resu lts checked and verified.No clot detected. Performed By: #### 5 7021-8 #### [facility] CLIA [id number] [address] [place] [address] [place] RBC (Bld) [#/Vol] 3.55 10*6/uL Low 4.20-6.00 [facility] Comment on above: Order Comment: Speci men Type: BLOOD SPECIMEN Ordering Facility: [facility] Address: [address] [place] [address] Performed By: #### 5 7021-8 #### [facility] CLIA [id number] [address] [place] [address] [place] WBC (Bld) [#/Vol] 9.59 10*3/uL Normal 3.70-11.00 [facility] Comment on above: Order Comment: Speci men Type: BLOOD SPECIMEN Ordering Facility: [facility] Address: [address] [place] [address] Performed By: #### 5 7021-8 #### [facility] CLIA [id number] [address] [place] [address] [place] CBC panel Auto (Bld)on 10-30 Erythrocyte distribution width (RBC) [Ratio] 14.5 % Normal 11.5-15.0 [facility] Comment on above: Order Comment: Speci men Type: BLOOD SPECIMEN Ordering Facility: [facility] Address: [address] [place] [address] Performed By: #### 5 7021-8 #### [facility] CLIA [id number] [address] [place] [address] [place] Hematocrit (Bld) [Volume fraction] 28.6 % Low 39.0-51.0 [facility] Comment on above: Order Comment: Speci men Type: BLOOD SPECIMEN Ordering Facility: [facility] Address: [address] [place] [address] Performed By: #### 5 7021-8 #### [facility] CLIA [id number] [address] [place] [address] [place] Hemoglobin (Bld) [Mass/Vol] 9.1 g/dL Low 13.0-17.0 [facility] Comment on above: Order Comment: Speci men Type: BLOOD SPECIMEN Ordering Facility: [facility] Address: [address] [place] [address] Performed By: #### 5 7021-8 #### [facility] CLIA [id number] [address] [place] [address] [place] MCH (RBC) [Entitic mass] 27.1 pg Normal 26.0-34.0 [facility] Comment on above: Order Comment: Speci men Type: BLOOD SPECIMEN Ordering Facility: [facility] Address: [address] [place] [address] Performed By: #### 5 7021-8 #### [facility] CLIA [id number] [address] [place] [address] [place] MCHC (RBC) [Mass/Vol] 31.8 g/dL Normal 30.5-36.0 [facility] Comment on above: Order Comment: Speci men Type: BLOOD SPECIMEN Ordering Facility: [facility] Address: [address] [place] [address] Performed By: #### 5 7021-8 #### [facility] CLIA [id number] [address] [place] [address] [place] MCV (RBC) [Entitic vol] 85.1 fL Normal 80.0-100.0 [facility] Comment on above: Order Comment: Speci men Type: BLOOD SPECIMEN Ordering Facility: [facility] Address: [address] [place] [address] Performed By: #### 5 7021-8 #### [facility] CLIA [id number] [address] [place] [address] [place] Nucleated RBC (Bld) [#/Vol] 10*3/uL Normal <0.01 [facility] Comment on above: Order Comment: Speci men Type: BLOOD SPECIMEN Ordering Facility: [facility] Address: [address] [place] [address] Performed By: #### 5 7021-8 #### [facility] CLIA [id number] [address] [place] [address] [place] Platelet mean volume (Bld) [Entitic vol] 10.1 fL Normal 9.0-12.7 [facility] Comment on above: Order Comment: Speci men Type: BLOOD SPECIMEN Ordering Facility: [facility] Address: [address] [place] [address] Performed By: #### 5 7021-8 #### [facility] CLIA [id number] [address] [place] [address] [place] Platelets (Bld) [#/Vol] 180 10*3/uL Normal 150-400 [facility] Comment on above: Order Comment: Speci men Type: BLOOD SPECIMEN Ordering Facility: [facility] Address: [address] [place] [address] Performed By: #### 5 7021-8 #### [facility] CLIA [id number] [address] [place] [address] [place] RBC (Bld) [#/Vol] 3.36 10*6/uL Low 4.20-6.00 [facility] Comment on above: Order Comment: Speci men Type: BLOOD SPECIMEN Ordering Facility: [facility] Address: [address] [place] [address] Performed By: #### 5 7021-8 #### [facility] CLIA [id number] [address] [place] [address] [place] WBC (Bld) [#/Vol] 10.06 10*3/uL Normal 3.70-11.00 [facility] Comment on above: Order Comment: Speci men Type: BLOOD SPECIMEN Ordering Facility: [facility] Address: [address] [place] [address] Performed By: #### 5 7021-8 #### [facility] CLIA [id number] [address] [place] [address] [place] CONSULT PROGon 10-31-2023 CONSULT PROG HNO ID: [id number] Author: HEAVEN CAMACHO MD Service: Urology Author Type: Resident Type: Consult Progress Note Filed: 10/31/2023 06:56 Note Text: [facility] UROLOGY PROGRESS NOTE Name: Johnny Devine Bed: H071 019/[id number] Date: 10/31/2023 After Hours [facility] Urology Service Pager: [phone] ASSESSMENT AND PLAN Johnny Devine is a [...] for bladder spasms from catheter - Overall haskisn plan and care per primary team - Will arrange outpatient urology follow up - Remainder of cares per primary Discussed with second affiliate, Dr. Joseph Camacho MD Urology Resident [facility] Pager [phone] For weekend or after hours issues please page the on-call urology pager [phone] 10/31/2023 6:48 AM Subjective SUBJECTIVE - See [...] Imaging All relevant recent imaging reviewed Normal [facility] Comprehensive metabolic 2000 panelon 10-31-2023 Albumin [Mass/Vol] 3.1 g/dL Low 3.9-4.9 [facility] Comment on above: Order Comment: Speci men Type: BLOOD SPECIMEN Ordering Facility: [facility] Address: [address] [place] [address] Performed By: #### 5 7021-8 #### [facility] CLIA [id number] [address] [place] [address] [place] ALP [Catalytic activity/Vol] 31 U/L Low 38-113 [facility] Comment on above: Order Comment: Speci men Type: BLOOD SPECIMEN Ordering Facility: [facility] Address: [address] [place] [address] Performed By: #### 5 7021-8 #### [facility] CLIA [id number] [address] [place] [address] [place] ALT [Catalytic activity/Vol] 6 U/L Low 10-54 [facility] Comment on above: Order Comment: Speci men Type: BLOOD SPECIMEN Ordering Facility: [facility] Address: [address] [place] [address] Performed By: #### 5 7021-8 #### [facility] CLIA [id number] [address] [place] [address] [place] Anion gap [Moles/Vol] 6 mmol/L Low 9-18 [facility] Comment on above: Order Comment: Speci men Type: BLOOD SPECIMEN Ordering Facility: [facility] Address: [address] [place] [address] Performed By: #### 5 7021-8 #### [facility] CLIA [id number] [address] [place] [address] [place] AST [Catalytic activity/Vol] 13 U/L Low 14-40 [facility] Comment on above: Order Comment: Speci men Type: BLOOD SPECIMEN Ordering Facility: [facility] Address: [address] [place] [address] Performed By: #### 5 7021-8 #### [facility] CLIA [id number] [address] [place] [address] [place] Bilirubin [Mass/Vol] mg/dL Low 0.2-1.3 [facility] Comment on above: Order Comment: Speci men Type: BLOOD SPECIMEN Ordering Facility: [facility] Address: [address] [place] [address] Performed By: #### 5 7021-8 #### [facility] CLIA [id number] [address] [place] [address] [place] Calcium [Mass/Vol] 7.4 mg/dL Low 8.5-10.2 [facility] Comment on above: Order Comment: Speci men Type: BLOOD SPECIMEN Ordering Facility: [facility] Address: [address] [place] [address] Performed By: #### 5 7021-8 #### [facility] CLIA [id number] [address] [place] [address] [place] Chloride [Moles/Vol] 115 mmol/L High 97-105 [facility] Comment on above: Order Comment: Speci men Type: BLOOD SPECIMEN Ordering Facility: [facility] Address: [address] [place] [address] Performed By: #### 5 7021-8 #### [facility] CLIA [id number] [address] [place] [address] [place] CO2 [Moles/Vol] 26 mmol/L Normal 22-30 [facility] Comment on above: Order Comment: Speci men Type: BLOOD SPECIMEN Ordering Facility: [facility] Address: [address] [place] [address] Performed By: #### 5 7021-8 #### [facility] CLIA [id number] [address] [place] [address] [place] Creatinine [Mass/Vol] 0.73 mg/dL Normal 0.73-1.22 [facility] Comment on above: Order Comment: Sana zuñiga Type: BLOOD SPECIMEN Ordering Facility: [facility] Address: [address] [place] [address] Performed By: #### 5 7021-8 #### [facility] CLIA [id number] [address] [place] [address] [place] Creatinine and Glomerular filtration rate.predicted panel (S/P/Bld) 125 mL/min/1.73m??? Normal >=60 [facility] Comment on above: Order Comment: Sana zuñiga Type: BLOOD SPECIMEN Ordering Facility: [facility] Address: [address] [place] [address] Result Comment: Lor mated Glomerular Filtration Rate [...] GFR. Performed By: #### 5 7021-8 #### [facility] CLIA [id number] [address] [place] [address] [place] Glucose [Mass/Vol] 103 mg/dL High 74-99 [facility] Comment on above: Order Comment: Akbari men Type: BLOOD SPECIMEN Ordering Facility: [facility] Address: [address] [place] [address] Result Comment: The [place] [employer] (ADA) provides guidance for cutoff [...] Standards of Medical Care in Diabetes 2016, [place] [employer]. Diabetes Care. 2016.39(Suppl 1). Performed By: #### 5 7021-8 #### [facility] CLIA [id number] [address] [place] [address] [place] Potassium [Moles/Vol] 4.0 mmol/L Normal 3.7-5.1 [facility] Comment on above: Order Comment: Speci men Type: BLOOD SPECIMEN Ordering Facility: [facility] Address: [address] [place] [address] Performed By: #### 5 7021-8 #### [facility] CLIA [id number] [address] [place] [address] [place] Protein [Mass/Vol] 5.6 g/dL Low 6.3-8.0 [facility] Comment on above: Order Comment: Speci men Type: BLOOD SPECIMEN Ordering Facility: [facility] Address: [address] [place] [address] Performed By: #### 5 7021-8 #### [facility] CLIA [id number] [address] [place] [address] [place] Sodium [Moles/Vol] 147 mmol/L High 136-144 [facility] Comment on above: Order Comment: Speci men Type: BLOOD SPECIMEN Ordering Facility: [facility] Address: [address] [place] [address] Performed By: #### 5 7021-8 #### [facility] CLIA [id number] [address] [place] [address] [place] Urea nitrogen [Mass/Vol] 9 mg/dL Normal 9-24 [facility] Comment on above: Order Comment: Speci men Type: BLOOD SPECIMEN Ordering Facility: [facility] Address: [address] [place] [address] Performed By: #### 5 7021-8 #### [facility] CLIA [id number] [address] [place] [address] [place] [address] [place] [id number] 10-31-2023 ECG01 Ventricular Rate : 9 3 BPM Atrial Rate : 93 BPM P-R Interval : 146 ms QRS Duration : 90 ms Q-T Interval : 394 ms QTC Calculation(Bazett) : 489 ms Calculated P [place] : 7 degrees Calculated R [place] : 11 degrees Calculated T [place] : -11 degrees NORMAL SINUS RHYTHM ANTEROLATERAL T WAVE ABNORMALITY BORDERLINE PROLONGED QTC ABNORMAL ECG Confirmed by TRENT BYRD MD ([id number]) on 11/06/2023 9:42:18 AM NAME : JOHNNY DEVINE PID : [id number] : 1990 Gender : Male Race : ORD : Procedure Date : Oct 31 2023 15:33:44 Edit Date : Nov 06 2023 09:42:18 Diagnosis: NORMAL SINUS RHYTHM ANTEROLATERAL T WAVE ABNORMALITY BORDERLINE PROLONGED QTC ABNORMAL ECG Confirmed by TRENT BYRD MD ([id number]) on 11/06/2023 9:42:18 AM Test Reason : AMET Location : 74 : 1 1- Overread By : TRENT BYRD MD Edited By : TRENT BYRD MD Referred By : PHOENIX CARDENAS Acquired by : MARI DUMONT [facility] MEDICAL EMERon 10-31-2023 [facility] HNO ID: [id number] Author: PASTORA KINGSLEY APRN.CATTLE BROKER Service: Critical Care Author Type: Nurse Practitioner [...] October 31, 2023 TIME: 4:13 PM Normal [facility] Magnesium SerPl-mCncon 10-30 Magnesium [Mass/Vol] 2.2 mg/dL Normal 1.7-2.3 [facility] Comment on above: Order Comment: Speci men Type: BLOOD SPECIMENOrdering Facility: [facility] Address: [address] [place] [address] Performed By: #### 1 9123-9, 2777-1 ####[facility] [id number] [place] [address] [place] Magnesium [Mass/Vol] 2.1 mg/dL Normal 1.7-2.3 [facility] Comment on above: Order Comment: Speci men Type: BLOOD SPECIMEN Ordering Facility: [facility] Address: [address] [place] [address] Performed By: #### 2 777-1, 42358-5, 40060-7 #### [facility] CLIA [id number] [address] [place] [address] [place] NURSING PROGon 10-31-2023 NURSING PROG HNO ID: [id number] Author: PAZ RIGGINS RN Service: Nursing Author Type: Registered Nurse Type: Nursing Progress Note Filed: 10/31/2023 16:32 Note Text: Called into patients room by brother who stated patient was shaking hard and having seizure like activity, on entering room patient was tachypneic and breathing hard, AMET activated. Chest xray ordered, EKG done, labs done, oxygen 89 on RA, 2L NC applied. Normal [facility] Phosphate SerPl-mCncon 10-30 Phosphate [Mass/Vol] 1.4 mg/dL Low 2.7-4.8 [facility] Comment on above: Order Comment: Speci men Type: BLOOD SPECIMENOrdering Facility: [facility] Address: [address] [place] [address] Performed By: #### 1 9123-9, 2777-1 ####[facility] [id number] [place] [address] [place] Phosphate [Mass/Vol] 2.1 mg/dL Low 2.7-4.8 [facility] Comment on above: Order Comment: Speci men Type: BLOOD SPECIMEN Ordering Facility: [facility] Address: [address] [place] [address] Performed By: #### 2 777-1, 29616-6, 36686-5 #### [facility] CLIA [id number] [address] [place] [address] [place] [address] [place] XR ABDOMEN 1V [...] abnormality. Lung bases are not well seen. Barrel Rifler Broach: PSCB Transcribe Date/Time: Oct 31 2023 5:15P Dictated by : LEONEL ALONZO MD This examination was interpreted and the report reviewed and electronically signed by: LEONEL ALONZO MD on Oct 31 2023 5:22PM EST [id number] Normal [facility] XR CHEST 1V FRONTAL PORTon [...] cardiomediastinal silhouette. Other: . IMPRESSION: See result. Barrel Rifler Broach: PSCB Transcribe Date/Time: Oct 31 2023 4:14P Dictated by : SHEA WORTHY MD This examination was interpreted and the report reviewed and electronically signed by: SHEA WORTHY MD on Oct 31 2023 4:15PM EST [id number] Normal [facility] ANES POSTPROC EVALon 024 ANES POSTPROC EVAL HNO ID: [id number] Author: JEREMIE JOAQUIN MD Service: ? Author Type: Anesthesiologist Type: Anesthesia Postprocedure Evaluation Filed: 10/30/2023 11:55 Note Text: POST ANESTHESIA EVALUATION NOTE : 1990 Procedure Summary Date: 10/30/23 [address] Start: 731 Anesthesia Stop: 902 [...] October 30, 2023 TIME: 11:46 AM CSN: [id number] Normal [facility] ANES PRE-OPon 10-30-2023 ANES PRE-OP HNO ID: [id number] Author: JEREMIE JOAQUIN MD Service: ? Author Type: Anesthesiologist Type: Anesthesia Preprocedure Evaluation Filed: 10/30/2023 08:16 Note Text: ANESTHESIOLOGY DAY OF SURGERY NOTE : 1990 Procedure Information Date/Time: 10/30/23729 Procedure: DORSAL SLIT FORESKIN EXCEPT (Penis) Location: [facility] Surgeons: Rafael Giraldo MD [...] and consent discussed: yes. Patient / Responsible [employer] Party agrees to proceed: yes Patient / [...] mL MUCOUS MEMBRANE ONCE - phenol 1 [place] (CHLORASEPTIC) 1 [place] MUCOUS MEMBRANE (TOPICAL MOUTH AND THROAT) q [...] INTRAVENOUS DAILY (6 AM) - phenol 1 [place] (CHLORASEPTIC) 1 [place] MUCOUS MEMBRANE (TOPICAL MOUTH AND THROAT) q [...] MORNING F (more content not included)... Normal [facility] Basic metabolic 2000 panelon 10-30-2023 Anion gap [Moles/Vol] 12 mmol/L Normal 9-18 [facility] Comment on above: Order Comment: Speci men Type: BLOOD SPECIMEN Ordering Facility: [facility] Address: [address] [place] [address] Performed By: #### 2 4321-2, , 2776-08 #### [facility] CLIA [id number] [address] [place] [address] [place] Calcium [Mass/Vol] 7.4 mg/dL Low 8.5-10.2 [facility] Comment on above: Order Comment: Speci men Type: BLOOD SPECIMEN Ordering Facility: [facility] Address: [address] [place] [address] Performed By: #### 2 4321-2, , 2776-08 #### [facility] CLIA [id number] [address] [place] [address] [place] Chloride [Moles/Vol] 113 mmol/L High 97-105 [facility] Comment on above: Order Comment: Speci men Type: BLOOD SPECIMEN Ordering Facility: [facility] Address: [address] [place], [place] [address] Performed By: #### 2 4321-2, , 2776-08 #### [facility] CLIA [id number] [address] [place] [address] [place] CO2 [Moles/Vol] 24 mmol/L Normal 22-30 [facility] Comment on above: Order Comment: Speci men Type: BLOOD SPECIMEN Ordering Facility: [facility] Address: [address] [place], [place] [address] Performed By: #### 2 4321-2, , 2776-08 #### [facility] CLIA [id number] [address] [place] [address] [place] Creatinine [Mass/Vol] 0.69 mg/dL Low 0.73-1.22 [facility] Comment on above: Order Comment: Speci men Type: BLOOD SPECIMEN Ordering Facility: [facility] Address: [address] [place] [address] Performed By: #### 2 4321-2, 04760-6, 2777-1 #### [facility] CLIA [id number] [address] [place] [address] [place] Creatinine and Glomerular filtration rate.predicted panel (S/P/Bld) 127 mL/min/1.73m??? Normal >=60 [facility] Comment on above: Order Comment: Sana zuñiga Type: BLOOD SPECIMEN Ordering Facility: [facility] Address: [address] [place] [address] Result Comment: Lor mated Glomerular Filtration Rate [...] actual GFR. Performed By: #### 2 4321-2, 90959-7, 2777- #### [facility] CLIA [id number] [address] [place] [address] [place] Glucose [Mass/Vol] 98 mg/dL Normal 74-99 [facility] Comment on above: Order Comment: Sana zuñiga Type: BLOOD SPECIMEN Ordering Facility: [facility] Address: [address] [place] [address] Result Comment: The [place] Diabetes [employer] (ADA) provides guidance for cutoff [...] Standards of Medical Care in Diabetes 2016, [place] [employer]. Diabetes Care. 2016.39(Suppl 1). Performed By: #### 2 4321-2, 13844-7, 2776- #### [facility] CLIA [id number] [address] [place] [address] [place] Potassium [Moles/Vol] 3.6 mmol/L Low 3.7-5.1 [facility] Comment on above: Order Comment: Speci men Type: BLOOD SPECIMEN Ordering Facility: [facility] Address: [address] [place] [address] Performed By: #### 2 4321-2, , 2776-08 #### [facility] CLIA [id number] [address] [place] [address] [place] Sodium [Moles/Vol] 149 mmol/L High 136-144 [facility] Comment on above: Order Comment: Speci men Type: BLOOD SPECIMEN Ordering Facility: [facility] Address: [address] [place] [address] Performed By: #### 2 4321-2, , 2776-08 #### [facility] CLIA [id number] [address] [place] [address] [place] Urea nitrogen [Mass/Vol] 9 mg/dL Normal 9-24 [facility] Comment on above: Order Comment: Speci men Type: BLOOD SPECIMEN Ordering Facility: [facility] Address: [address] [place] [address] Performed By: #### 2 4321-2, , 2776-08 #### [facility] CLIA [id number] [address] [place] [address] [place] CBC W Auto Differential pane l (Bld)on 10-30-2023 Basophils (Bld) [#/Vol] 0.03 10*3/uL Normal <0.11 [facility] Comment on above: Order Comment: Speci men Type: BLOOD SPECIMEN Ordering Facility: [facility] Address: [address] [place] [address] Performed By: #### 5 7021-8 #### [facility] CLIA [id number] [address] [place] [address] [place] Basophils/100 WBC (Bld) 0.3 % Normal [facility] Comment on above: Order Comment: Speci men Type: BLOOD SPECIMEN Ordering Facility: [facility] Address: [address] [place] [address] Performed By: #### 5 7021-8 #### [facility] CLIA [id number] [address] [place] [address] [place] Differential cell count method Nom (Bld) Auto Normal [facility] Comment on above: Order Comment: Speci men Type: BLOOD SPECIMEN Ordering Facility: [facility] Address: [address] [place] [address] Performed By: #### 5 7021-8 #### [facility] CLIA [id number] [address] [place] [address] [place] Eosinophils (Bld) [#/Vol] 0.07 10*3/uL Normal <0.46 [facility] Comment on above: Order Comment: Speci men Type: BLOOD SPECIMEN Ordering Facility: [facility] Address: [address] [place] [address] Performed By: #### 5 7021-8 #### [facility] CLIA [id number] [address] [place] [address] [place] Eosinophils/100 WBC (Bld) 0.6 % Normal [facility] Comment on above: Order Comment: Speci men Type: BLOOD SPECIMEN Ordering Facility: [facility] Address: [address] [place] [address] Performed By: #### 5 7021-8 #### [facility] CLIA [id number] [address] [place] [address] [place] Erythrocyte distribution width (RBC) [Ratio] 14.5 % Normal 11.5-15.0 [facility] Comment on above: Order Comment: Speci men Type: BLOOD SPECIMEN Ordering Facility: [facility] Address: [address] [place] [address] Performed By: #### 5 7021-8 #### [facility] CLIA [id number] [address] [place] [address] [place] Hematocrit (Bld) [Volume fraction] 31.1 % Low 39.0-51.0 [facility] Comment on above: Order Comment: Speci men Type: BLOOD SPECIMEN Ordering Facility: [facility] Address: [address] [place] [address] Performed By: #### 5 7021-8 #### [facility] CLIA [id number] [address] [place] [address] [place] Hemoglobin (Bld) [Mass/Vol] 9.8 g/dL Low 13.0-17.0 [facility] Comment on above: Order Comment: Speci men Type: BLOOD SPECIMEN Ordering Facility: [facility] Address: [address] [place] [address] Performed By: #### 5 7021-8 #### [facility] CLIA [id number] [address] [place] [address] [place] Immature granulocytes (Bld) [#/Vol] 0.06 10*3/uL Normal <0.10 [facility] Comment on above: Order Comment: Speci men Type: BLOOD SPECIMEN Ordering Facility: [facility] Address: [address] [place] [address] Performed By: #### 5 7021-8 #### [facility] CLIA [id number] [address] [place] [address] [place] Immature granulocytes/100 WBC (Bld) 0.5 % Normal [facility] Comment on above: Order Comment: Speci men Type: BLOOD SPECIMEN Ordering Facility: [facility] Address: [address] [place] [address] Performed By: #### 5 7021-8 #### [facility] CLIA [id number] [address] [place] [address] [place] Lymphocytes (Bld) [#/Vol] 1.41 10*3/uL Normal 1.00-4.00 [facility] Comment on above: Order Comment: Speci men Type: BLOOD SPECIMEN Ordering Facility: [facility] Address: [address] [place] [address] Performed By: #### 5 7021-8 #### [facility] CLIA [id number] [address] [place] [address] [place] Lymphocytes/100 WBC (Bld) 12.0 % Normal [facility] Comment on above: Order Comment: Speci men Type: BLOOD SPECIMEN Ordering Facility: [facility] Address: [address] [place] [address] Performed By: #### 5 7021-8 #### [facility] CLIA [id number] [address] [place] [address] [place] MCH (RBC) [Entitic mass] 26.6 pg Normal 26.0-34.0 [facility] Comment on above: Order Comment: Speci men Type: BLOOD SPECIMEN Ordering Facility: [facility] Address: [address] [place] [address] Performed By: #### 5 7021-8 #### [facility] CLIA [id number] [address] [place] [address] [place] MCHC (RBC) [Mass/Vol] 31.5 g/dL Normal 30.5-36.0 [facility] Comment on above: Order Comment: Speci men Type: BLOOD SPECIMEN Ordering Facility: [facility] Address: [address] [place] [address] Performed By: #### 5 7021-8 #### [facility] CLIA [id number] [address] [id number] [address] [place] MCV (RBC) [Entitic vol] 84.5 fL Normal 80.0-100.0 [facility] Comment on above: Order Comment: Speci men Type: BLOOD SPECIMEN Ordering Facility: [facility] Address: [address] [place] [address] Performed By: #### 5 7021-8 #### [facility] CLIA [id number] [address] [place] [address] [place] Monocytes (Bld) [#/Vol] 1.18 10*3/uL High <0.87 [facility] Comment on above: Order Comment: Speci men Type: BLOOD SPECIMEN Ordering Facility: [facility] Address: [address] [place] [address] Performed By: #### 5 7021-8 #### [facility] CLIA [id number] [address] [place] [address] [place] Monocytes/100 WBC (Bld) 10.1 % Normal [facility] Comment on above: Order Comment: Speci men Type: BLOOD SPECIMEN Ordering Facility: [facility] Address: [address] [place] [address] Performed By: #### 5 7021-8 #### [facility] CLIA [id number] [address] [place] [address] [place] Neutrophils (Bld) [#/Vol] 8.98 10*3/uL High 1.45-7.50 [facility] Comment on above: Order Comment: Speci men Type: BLOOD SPECIMEN Ordering Facility: [facility] Address: [address] [place] [address] Performed By: #### 5 7021-8 #### [facility] CLIA [id number] [address] [place] [address] [place] Neutrophils/100 WBC (Bld) 76.5 % Normal [facility] Comment on above: Order Comment: Speci men Type: BLOOD SPECIMEN Ordering Facility: [facility] Address: [address] [place], [place] [address] Performed By: #### 5 7021-8 #### [facility] CLIA [id number] [address] [place] [address] [place] Nucleated RBC (Bld) [#/Vol] 10*3/uL Normal <0.01 [facility] Comment on above: Order Comment: Speci men Type: BLOOD SPECIMEN Ordering Facility: [facility] Address: [address] [place] [address] Performed By: #### 5 7021-8 #### [facility] CLIA [id number] [address] [place] [address] [place] Nucleated RBC/100 WBC (Bld) [Ratio] 0.0 /100 WBC Normal [facility] Comment on above: Order Comment: Speci men Type: BLOOD SPECIMEN Ordering Facility: [facility] Address: [address] [place] [address] Performed By: #### 5 7021-8 #### [facility] CLIA [id number] [address] [place] [address] [place] Platelet mean volume (Bld) [Entitic vol] 9.7 fL Normal 9.0-12.7 [facility] Comment on above: Order Comment: Speci men Type: BLOOD SPECIMEN Ordering Facility: [facility] Address: [address] [place] [address] Performed By: #### 5 7021-8 #### [facility] CLIA [id number] [address] [place] [address] [place] Platelets (Bld) [#/Vol] 138 10*3/uL Low 150-400 [facility] Comment on above: Order Comment: Speci men Type: BLOOD SPECIMEN Ordering Facility: [facility] Address: [address] [place] [address] Performed By: #### 5 7021-8 #### [facility] CLIA [id number] [address] [place] [address] [place] RBC (Bld) [#/Vol] 3.68 10*6/uL Low 4.20-6.00 [facility] Comment on above: Order Comment: Speci men Type: BLOOD SPECIMEN Ordering Facility: [facility] Address: [address] [place] [address] Performed By: #### 5 7021-8 #### [facility] CLIA [id number] [address] [place] [address] [place] WBC (Bld) [#/Vol] 11.73 10*3/uL High 3.70-11.00 [facility] Comment on above: Order Comment: Speci men Type: BLOOD SPECIMEN Ordering Facility: [facility] Address: [address] [place] [address] Performed By: #### 5 7021-8 #### [facility] CLIA [id number] [address] [place] [address] [place] CONSULTon 10-30-2023 CONSULT HNO ID: [id number] Author: RAFAEL GIRALDO MD Service: Urology Author [...] the meatal orifice was visualized, an 8 Slovenian Haskins catheter was sterilely placed. However, the [...] Dr. Jay Alan MD Resident PGY-2 [facility] [place] [facility] Pager [phone] After hours and on weekend alarm security or surveillance monitor pager [phone] HPI Johnny Devine is a 33 year [...] the meatal orifice was visualized, an 8 [place] Haskins catheter was sterilely placed. CYU was [...] CONGESTIONDisp: Rfl: guanFACINE (INTUNIV ER) 4 mg [id number] 4 mg by mouth onc (more content not included)... Normal [facility] Magnesium SerPl-mCncon 10-29 Magnesium [Mass/Vol] 2.0 mg/dL Normal 1.7-2.3 [facility] Comment on above: Order Comment: Speci men Type: BLOOD SPECIMENOrdering Facility: [facility] Address: [address] [place] [address] Performed By: #### 2 4321-2, 80450-9, 2777-1 ####[facility] [id number] [address] [facility] NURSING PROGon 10-30-2023 NURSING PROG HNO ID: [id number] Author: SHAHRIAR FARFAN, RN Service: Nursing Author Type: Registered Nurse Type: Nursing Progress Note Filed: 10/30/2023 09:52 Note Text: Pt awake, opens eyes spontaneously, MEDINA to command, generalized weakness. Nonverbal at baseline. VSS. Appears comfortable, no grimacing, resting Normal [facility] NURSING PROG HNO ID: [id number] Author: SHAHRIAR FARFAN, RN Service: Nursing Author [...] effective in protecting the patient's safety: Alarms, Transit Coach Operator/Sitter, Bed in Low/Locked Position Next, a comprehensive assessment was performed and warranted placing the patient in Soft Bilateral Wrists, the least restrictive restraint needed to protect the patient's safety. Ongoing safety assessments and evaluation for earliest removal of restraints will be performed. DATE: October 30, 2023 TIME: 9:48 AM Shahriar Farfan RN Normal [facility] NURSING PROG HNO ID: [id number] Author: LEONARD FRANCIS JR, RN Service: Nursing Author Type: Registered Nurse Type: Nursing Progress Note Filed: 10/30/2023 01:11 Note Text: 2200 PM: PT does not have have a haskins catheter post op. Per report, prior to OR PT was admitted from OSH with a pediatric haskins in place due to difficulties with normal catheter. [id number] Gen surg notified. PT is clean and [...] Gen surg at bedside Leonard PINEDA. Normal [facility] OPERATIVE NOon 10-30-2023 OPERATIVE NO HNO ID: [id number] Author: HERMAN JOHNSON MD Service: Urology Author Type: Resident Type: Operative Report Filed: 10/30/2023 09:08 Note Text: Attestation signed by Oscar Ruiz MD at 10/30/2023 9:20 AM Attestation The primary proceduralist, Wale Thoams, performed the entire procedure with the assistance of Dr. Johnson. I agree with the documentation above. [facility] UROLOGY OPERATIVE REPORT Patient Name: Johnny Devine Patient Log ID: [id number] Surgery Date: 10/30/2023 Incision/Procedure Start Time: 8:03 AM Incision Close/Procedure End Time: 8:17 AM Surgeon(s) and Brake Lining Driller(s): Surgeon(s) and Role: * Oscar Ruiz MD [...] I agree with the documentation above. Normal [facility] Phosphate SerPl-mCncon 10-29 Phosphate [Mass/Vol] 2.2 mg/dL Low 2.7-4.8 [facility] Comment on above: Order Comment: Speci men Type: BLOOD SPECIMENOrdering Facility: [facility] Address: [address] [place] [address] Performed By: #### 2 4321-2, 51825-9, 2777-1 ####[facility] [id number] [place] [address] [place] XR ABDOMEN 1V [...] likely an ileus. Sigmoid distention appears improved Barrel Rifler Broach: PSCB Transcribe Date/Time: Oct 30 2023 7:41A Dictated by : RYAN MORRIS MD This examination was interpreted and the report reviewed and electronically signed by: RYAN MORRIS MD on Oct 30 2023 7:43AM EST [id number] Normal [facility] ANES POSTPROC EVALon 024 ANES POSTPROC EVAL HNO ID: [id number] Author: DORIE TENA DO Service: ? Author Type: Anesthesiologist Type: Anesthesia Postprocedure Evaluation Filed: 10/29/2023 14:37 Note Text: POST ANESTHESIA EVALUATION NOTE : 1990 Procedure Summary Date: 10/29/23 Room / Location: [address] [facility] Anesthesia Start: 0948 Anesthesia [...] October 29, 2023 TIME: 2:34 PM CSN: [id number] Normal [facility] ANES PRE-OPon 10-29-2023 ANES PRE-OP HNO ID: [id number] Author: KENZIE MORE APRN.[facility] [facility] Service: ? Author Type: Nurse Crew Dispatcher Type: Anesthesia Preprocedure Evaluation Filed: 10/29/2023 09:58 Note Text: ANESTHESIOLOGY DAY OF SURGERY NOTE : 1990 Procedure Information Anesthesia Start Date/Time: 10/29/23947 Procedure: EXPLORATORY LAPAROTOMY (Abdomen) Location: MAIN [facility] Surgeons: Samuel Robin [...] and consent discussed: yes. Patient / Responsible Alliance Party agrees to proceed: yes Patient / [...] HR - [Held on Transfer] phenol 1 [place] (CHLORASEPTIC) 1 [place] MUCOUS MEMBRANE (TOPICAL MOUTH AND THROAT) q [...] - Sennosid (more content not included)... Normal [facility] BRIEF OP NOTon 10-29-2023 BRIEF OP NOT HNO ID: [id number] Author: PA ALICEA MD Service: General Surgery Author Type: Resident Type: Brief Op Note Filed: 10/29/2023 11:47 Note Text: [facility] BRIEF OP NOTE LOG ID: [id number] SURGERY/PROCEDURE DATE: 10/29/2023 INCISION/PROCEDURE START TIME: 10:25 AM INCISION CLOSE/PROCEDURE END TIME: 11:40 AM SURGEON(S)/PROCEDURAL IST(S) AND TUCKING MACHINE OPERATOR(S): Surgeon(s) and Role: * Samuel [...] 29, 2023 TIME: 11:45 AM PAGER/CONTACT #: [facility] BRIEF OP NOT HNO ID: [id number] Author: DANTE CHERRY MD Service: General Surgery Author Type: Resident Type: Brief Op Note Filed: 10/29/2023 11:44 Note Text: BRIEF OPERATIVE / PROCEDURE NOTE LOG ID: [id number] SURGERY/PROCEDURE DATE: 10/29/2023 INCISION/PROCEDURE START TIME: 10:25 AM INCISION CLOSE/PROCEDURE END TIME: 11:40 AM SURGEON(S)/PROCEDURAL IST(S) AND TUCKING MACHINE OPERATOR(S): Surgeon(s) and Role: * Samuel [...] DATE: October 29, 2023 TIME: 11:36 AM [facility] BRIEF OP NOT HNO ID: [id number] Author: PA ALICEA MD Service: General Surgery Author Type: Resident Type: Brief Op Note Filed: 10/29/2023 08:42 Note Text: Created in Error Normal [facility] Basic metabolic 2000 panelon 10-29-2023 Anion gap [Moles/Vol] 11 mmol/L Normal 9-18 [facility] Comment on above: Order Comment: Speci men Type: BLOOD SPECIMEN Ordering Facility: [facility] Address: [address] [place] [address] Performed By: #### 2 777-1, 32311-3, #### [facility] CLIA [id number] [address] [place] [address] [place] Calcium [Mass/Vol] 7.4 mg/dL Low 8.5-10.2 [facility] Comment on above: Order Comment: Speci men Type: BLOOD SPECIMEN Ordering Facility: [facility] Address: [address] [place] [address] Performed By: #### 2 777-1, , #### [facility] CLIA [id number] [address] [place] [address] [place] Chloride [Moles/Vol] 112 mmol/L High 97-105 [facility] Comment on above: Order Comment: Speci men Type: BLOOD SPECIMEN Ordering Facility: [facility] Address: [address] [place] [address] Performed By: #### 2 777-1, , #### [facility] CLIA [id number] [address] [place] [address] [place] CO2 [Moles/Vol] 21 mmol/L Low 22-30 [facility] Comment on above: Order Comment: Speci men Type: BLOOD SPECIMEN Ordering Facility: [facility] Address: [address] [place] [address] Performed By: #### 2 777-1, 76574-0, #### [facility] CLIA [id number] [address] [place], [place] [address] [place] Creatinine [Mass/Vol] 0.69 mg/dL Low 0.73-1.22 [facility] Comment on above: Order Comment: Speci men Type: BLOOD SPECIMEN Ordering Facility: [facility] Address: [address] [place] [address] Performed By: #### 2 777-1, 85987-3, #### [facility] CLIA [id number] [address] [place] [address] [place] Creatinine and Glomerular filtration rate.predicted panel (S/P/Bld) 127 mL/min/1.73m??? Normal >=60 [facility] Comment on above: Order Comment: Sana zuñiga Type: BLOOD SPECIMEN Ordering Facility: [facility] Address: [address] [place] [address] Result Comment: Lor mated Glomerular Filtration Rate [...] actual GFR. Performed By: #### 2 777-1, 11805-2, 81745-3 #### [facility] CLIA [id number] [address] [place] [address] [place] Glucose [Mass/Vol] 115 mg/dL High 74-99 [facility] Comment on above: Order Comment: Sana zuñiga Type: BLOOD SPECIMEN Ordering Facility: [facility] Address: [address] [place] [address] Result Comment: The [place] Diabetes Association (ADA) provides guidance for cutoff [...] Standards of Medical Care in Diabetes 2016, [place] [employer]. Diabetes Care. 2016.39(Suppl 1). Performed By: #### 2 777-1, 64447-1, #### [facility] CLIA [id number] [address] [place] [address] [place] Potassium [Moles/Vol] 3.8 mmol/L Normal 3.7-5.1 [facility] Comment on above: Order Comment: Speci men Type: BLOOD SPECIMEN Ordering Facility: [facility] Address: [address] [place] [address] Performed By: #### 2 777-1, 78679-7, #### [facility] CLIA [id number] [address] [place] [address] [place] Sodium [Moles/Vol] 144 mmol/L Normal 136-144 [facility] Comment on above: Order Comment: Speci men Type: BLOOD SPECIMEN Ordering Facility: [facility] Address: [address] [place] [address] Performed By: #### 2 777-1, 79986-7, #### [facility] CLIA [id number] [address] [place] [address] [place] Urea nitrogen [Mass/Vol] 13 mg/dL Normal 9-24 [facility] Comment on above: Order Comment: Speci men Type: BLOOD SPECIMEN Ordering Facility: [facility] Address: [address] [place] [address] Performed By: #### 2 777-1, 04171-5, #### [facility] CLIA [id number] [address] [place], [place] [address] [place] CBC W Auto Differential pane l (Bld)on 10-29-2023 Basophils (Bld) [#/Vol] 10*3/uL Normal <0.11 [facility] Comment on above: Order Comment: Speci men Type: BLOOD SPECIMEN Ordering Facility: [facility] Address: [address] [place] [address] Performed By: #### 5 7021-8 #### [facility] CLIA [id number] [address] [place] [address] [place] Basophils/100 WBC (Bld) 0.1 % Normal [facility] Comment on above: Order Comment: Speci men Type: BLOOD SPECIMEN Ordering Facility: [facility] Address: [address] [place] [address] Performed By: #### 5 7021-8 #### [facility] CLIA [id number] [address] [place] [address] [place] Differential cell count method Nom (Bld) Auto Normal [facility] Comment on above: Order Comment: Speci men Type: BLOOD SPECIMEN Ordering Facility: [facility] Address: [address] [place] [address] Performed By: #### 5 7021-8 #### [facility] CLIA [id number] [address] [place] [address] [place] Eosinophils (Bld) [#/Vol] 10*3/uL Normal <0.46 [facility] Comment on above: Order Comment: Speci men Type: BLOOD SPECIMEN Ordering Facility: [facility] Address: [address] [place] [address] Performed By: #### 5 7021-8 #### [facility] CLIA [id number] [address] [place] [address] [place] Eosinophils/100 WBC (Bld) 0.1 % Normal [facility] Comment on above: Order Comment: Speci men Type: BLOOD SPECIMEN Ordering Facility: [facility] Address: [address] [place] [address] Performed By: #### 5 7021-8 #### [facility] CLIA [id number] [address] [place] [address] [place] Erythrocyte distribution width (RBC) [Ratio] 14.6 % Normal 11.5-15.0 [facility] Comment on above: Order Comment: Speci men Type: BLOOD SPECIMEN Ordering Facility: [facility] Address: [address] [place] [address] Performed By: #### 5 7021-8 #### [facility] CLIA [id number] [address] [place] [address] [place] Hematocrit (Bld) [Volume fraction] 33.0 % Low 39.0-51.0 [facility] Comment on above: Order Comment: Speci men Type: BLOOD SPECIMEN Ordering Facility: [facility] Address: [address] [place] [address] Performed By: #### 5 7021-8 #### [facility] CLIA [id number] [address] [place] [address] [place] Hemoglobin (Bld) [Mass/Vol] 10.5 g/dL Low 13.0-17.0 [facility] Comment on above: Order Comment: Speci men Type: BLOOD SPECIMEN Ordering Facility: [facility] Address: [address] [place] [address] Performed By: #### 5 7021-8 #### [facility] CLIA [id number] [address] [place] [address] [place] Immature granulocytes (Bld) [#/Vol] 0.05 10*3/uL Normal <0.10 [facility] Comment on above: Order Comment: Speci men Type: BLOOD SPECIMEN Ordering Facility: [facility] Address: [address] [place] [address] Performed By: #### 5 7021-8 #### [facility] CLIA [id number] [address] [place] [address] [place] Immature granulocytes/100 WBC (Bld) 0.4 % Normal [facility] Comment on above: Order Comment: Speci men Type: BLOOD SPECIMEN Ordering Facility: [facility] Address: [address] [place] [address] Performed By: #### 5 7021-8 #### [facility] CLIA [id number] [address] [place] [address] [place] Lymphocytes (Bld) [#/Vol] 1.25 10*3/uL Normal 1.00-4.00 [facility] Comment on above: Order Comment: Speci men Type: BLOOD SPECIMEN Ordering Facility: [facility] Address: [address] [place] [address] Performed By: #### 5 7021-8 #### [facility] CLIA [id number] [address] [place] [address] [place] Lymphocytes/100 WBC (Bld) 8.9 % Normal [facility] Comment on above: Order Comment: Speci men Type: BLOOD SPECIMEN Ordering Facility: [facility] Address: [address] [place] [address] Performed By: #### 5 7021-8 #### [facility] CLIA [id number] [address] [place] [address] [place] MCH (RBC) [Entitic mass] 26.9 pg Normal 26.0-34.0 [facility] Comment on above: Order Comment: Speci men Type: BLOOD SPECIMEN Ordering Facility: [facility] Address: [address] [place] [address] Performed By: #### 5 7021-8 #### [facility] CLIA [id number] [address] [place] [address] [place] MCHC (RBC) [Mass/Vol] 31.8 g/dL Normal 30.5-36.0 [facility] Comment on above: Order Comment: Speci men Type: BLOOD SPECIMEN Ordering Facility: [facility] Address: [address] [place] [address] Performed By: #### 5 7021-8 #### [facility] CLIA [id number] [address] [place] [address] [place] MCV (RBC) [Entitic vol] 84.6 fL Normal 80.0-100.0 [facility] Comment on above: Order Comment: Speci men Type: BLOOD SPECIMEN Ordering Facility: [facility] Address: [address] [place] [address] Performed By: #### 5 7021-8 #### [facility] CLIA [id number] [address] [place] [address] [place] Monocytes (Bld) [#/Vol] 1.50 10*3/uL High <0.87 [facility] Comment on above: Order Comment: Speci men Type: BLOOD SPECIMEN Ordering Facility: [facility] Address: [address] [place] [address] Performed By: #### 5 7021-8 #### [facility] CLIA [id number] [address] [place] [address] [place] Monocytes/100 WBC (Bld) 10.6 % Normal [facility] Comment on above: Order Comment: Speci men Type: BLOOD SPECIMEN Ordering Facility: [facility] Address: [address] [place] [address] Performed By: #### 5 7021-8 #### [facility] CLIA [id number] [address] [place] [address] [place] Neutrophils (Bld) [#/Vol] 11.26 10*3/uL High 1.45-7.50 [facility] Comment on above: Order Comment: Speci men Type: BLOOD SPECIMEN Ordering Facility: [facility] Address: [address] [place] [address] Performed By: #### 5 7021-8 #### [facility] CLIA [id number] [address] [place] [address] [place] Neutrophils/100 WBC (Bld) 79.9 % Normal [facility] Comment on above: Order Comment: Speci men Type: BLOOD SPECIMEN Ordering Facility: [facility] Address: [address] [place] [address] Performed By: #### 5 7021-8 #### [facility] CLIA [id number] [address] [place] [address] [place] Nucleated RBC (Bld) [#/Vol] 10*3/uL Normal <0.01 [facility] Comment on above: Order Comment: Speci men Type: BLOOD SPECIMEN Ordering Facility: [facility] Address: [address] [place] [address] Performed By: #### 5 7021-8 #### [facility] CLIA [id number] [address] [place] [address] [place] Nucleated RBC/100 WBC (Bld) [Ratio] 0.0 /100 WBC Normal [facility] Comment on above: Order Comment: Speci men Type: BLOOD SPECIMEN Ordering Facility: [facility] Address: [address] [place] [address] Performed By: #### 5 7021-8 #### [facility] CLIA [id number] [address] [place] [address] [place] Platelet mean volume (Bld) [Entitic vol] 9.4 fL Normal 9.0-12.7 [facility] Comment on above: Order Comment: Speci men Type: BLOOD SPECIMEN Ordering Facility: [facility] Address: [address] [place] [address] Performed By: #### 5 7021-8 #### [facility] CLIA [id number] [address] [place] [address] [place] Platelets (Bld) [#/Vol] 151 10*3/uL Normal 150-400 [facility] Comment on above: Order Comment: Speci men Type: BLOOD SPECIMEN Ordering Facility: [facility] Address: [address] [place] [address] Performed By: #### 5 7021-8 #### [facility] CLIA [id number] [address] [place] [address] [place] RBC (Bld) [#/Vol] 3.90 10*6/uL Low 4.20-6.00 [facility] Comment on above: Order Comment: Speci men Type: BLOOD SPECIMEN Ordering Facility: [facility] Address: [address] [place] [address] Performed By: #### 5 7021-8 #### [facility] CLIA [id number] [address] [place] [address] [place] WBC (Bld) [#/Vol] 14.09 10*3/uL High 3.70-11.00 [facility] Comment on above: Order Comment: Speci men Type: BLOOD SPECIMEN Ordering Facility: [facility] Address: [address] [place] [address] Performed By: #### 5 7021-8 #### [facility] CLIA [id number] [address] [place] [address] [place] CONFIRM BLOOD TYPEon 024 ABO A Normal [facility] Comment on above: Order Comment: Speci men Type: BLOOD SPECIMENOrdering Facility: [facility] Address: [address] [place] [address] Performed By: #### C ONABO ####[facility] [id number] [place] [address] [place] Rh Nom (Bld) Positive Normal [facility] Comment on above: Order Comment: Speci men Type: BLOOD SPECIMENOrdering Facility: [facility] Address: [address] [place] [address] Performed By: #### C ONABO ####[facility] [id number] [place] [address] [place] Magnesium SerPl-mCncon 10-28 Magnesium [Mass/Vol] 1.8 mg/dL Normal 1.7-2.3 [facility] Comment on above: Order Comment: Speci men Type: BLOOD SPECIMEN Ordering Facility: [facility] Address: [address] [place] [address] Performed By: #### 2 777-1, 47656-2, 21084-2 #### [facility] CLIA [id number] [address] [place] [address] [place] [address] [place] NURSING PROGon 10-29-2023 NURSING PROG HNO ID: [id number] Author: BAILEY HUTSON RN Service: Nursing Author Type: Registered Nurse Type: Nursing Progress Note Filed: 10/29/2023 18:29 Note Text: 1827 [place] [phone] to notify of patient's current temp of 100.2 F. Will continue to monitor. Normal [facility] NURSING PROG HNO ID: [id number] Author: BAILEY HUTSON RN Service: Nursing Author Type: Registered Nurse Type: Nursing Progress Note Filed: 10/29/2023 17:35 Note Text: Nursing Progress: Topic: RESTRAINT NON-VIOLENT PATIENT NAME: Johnny Devine Patient Location: [place] [address] Room: [place] [address] The patient demonstrates Attempting to Remove Medical [...] the patient's safety: Bed in Low/Locked Position, Transit Coach Operator/Sitter, Diversion Activities, IV/Feeding Bag/Pump Out of Vision, [...] TIME: 5:07 PM Bailey Hutson RN Normal [facility] NURSING PROG HNO ID: [id number] Author: BAILEY HUTSON RN Service: Nursing Author Type: Registered Nurse Type: Nursing Progress Note Filed: 10/29/2023 15:25 Note Text: 1518 [place] [phone] to request indwelling Haskins for incontinence and skin breakdown management. Will continue to monitor. 1523 Patient repeatedly attempt to remove NG tube despite the sitter at the bedside. Primary team notified with request for order for bilateral soft wrist restraint. Will continue to monitor. Normal [facility] NURSING PROG HNO ID: [id number] Author: OLIMPIA MAGALLON RN Service: Nursing Author Type: Registered Nurse Type: Nursing Progress Note Filed: 10/29/2023 13:37 Note Text: Pt resting quietly with patient complex manager at bedside. Several attempts to reach for NG tube, patient relaxes and moves hand away from from drain if you say hand down Per brother John Paul. This has been effective. Pt resting quietly, no facial grimacing, posturing, or guarding. Vss, resp rate even and non labored. Pt has returned to presurgical baseline and is being transferred back to [facility] in stable condition. Opening eyes when name is called. Brother Delbert (guardian) updated prior to patient transfer. Normal [facility] OPERATIVE NOon 10-29-2023 OPERATIVE NO HNO ID: [id number] Author: SAMUEL ROBIN MD Service: General Surgery Author Type: Physician Type: Operative Report Filed: 10/29/2023 13:52 Note Text: OPERATIVE/PROCEDURE REPORT LOG ID: [id number] SURGERY/PROCEDURE DATE: 10/29/2023 INCISION/PROCEDURE START TIME: 10:25 AM INCISION CLOSE/PROCEDURE END TIME: 11:40 AM SURGEON(S)/PROCEDURAL IST(S) AND TUCKING MACHINE OPERATOR(S): Surgeon(s) and Role: * Samuel [...] for the entirety of the case. Normal [facility] Phosphate SerPl-mCncon 10-28 Phosphate [Mass/Vol] 2.3 mg/dL Low 2.7-4.8 [facility] Comment on above: Order Comment: Speci men Type: BLOOD SPECIMEN Ordering Facility: [facility] Address: [address] [place] [address] Performed By: #### 2 777-1, 97650-9, #### [facility] CLIA [id number] [address] [place] [address] [place] SEPSIS LACTATEon 10-29-2023 Lactate [Moles/Vol] 1.2 mmol/L Normal <=2.0 [facility] Comment on above: Order Comment: Speci men Type: BLOOD SPECIMENOrdering Facility: [facility] Address: [address] [place] [address] Performed By: #### S LACT ####[facility] [id number] [place] [address] [place] Order Comment: Speci men Type: BLOOD SPECIMEN Ordering Facility: [facility] Address: [address] [place] [address] Performed By: #### 2 777-1, 49830-3, #### [facility] CLIA [id number] [address] [place] [address] [place] Urinalysis complete panel (U )on 10-29-2023 Bacteria LM.HPF (Urine sed) [#/Area] Negative Normal Negative [facility] Comment on above: Order Comment: Speci men Type: BLOOD SPECIMEN Ordering Facility: [facility] Address: [address] [place] [address] Performed By: #### 2 777-1, 44544-6, #### [facility] CLIA [id number] [address] [place] [address] [place] Bilirubin Ql (U) Negative Normal Negative [facility] Comment on above: Order Comment: Speci men Type: BLOOD SPECIMEN Ordering Facility: [facility] Address: [address] [place] [address] Performed By: #### 2 777-1, , #### [facility] CLIA [id number] [address] [place] [address] [place] Clarity (Unsp spec) Clear Normal Clear [facility] Comment on above: Order Comment: Speci men Type: BLOOD SPECIMEN Ordering Facility: [facility] Address: [address] [place] [address] Performed By: #### 2 777-1, , #### [facility] CLIA [id number] [address] [place] [address] [place] Color (U) Yellow Normal Yellow [facility] Comment on above: Order Comment: Speci men Type: BLOOD SPECIMEN Ordering Facility: [facility] Address: [address] [place] [address] Performed By: #### 2 777-1, 06973-2, #### [facility] CLIA [id number] [address] [place] [address] [place] Epithelial cells LM.HPF (Urine sed) [#/Area] None Seen Normal [facility] Comment on above: Order Comment: Speci men Type: BLOOD SPECIMEN Ordering Facility: [facility] Address: [address] [place] [address] Performed By: #### 2 777-1, 71246-6, #### [facility] CLIA [id number] [address] [place] [address] [place] Glucose Test strip (U) [Mass/Vol] Negative Normal Negative [facility] Comment on above: Order Comment: Speci men Type: BLOOD SPECIMEN Ordering Facility: [facility] Address: [address] [place] [address] Performed By: #### 2 777-1, , #### [facility] CLIA [id number] [address] [place] [address] [place] Hemoglobin Ql (U) 2+ Abnormal Negative [facility] Comment on above: Order Comment: Speci men Type: BLOOD SPECIMEN Ordering Facility: [facility] Address: [address] [place] [address] Performed By: #### 2 777-1, , #### [facility] CLIA [id number] [address] [place] [address] [place] Hyaline casts (Urine sed) [#/Area] 0 /[LPF] Normal 0 /LPF [facility] Comment on above: Order Comment: Speci men Type: BLOOD SPECIMEN Ordering Facility: [facility] Address: [address] [place] [address] Performed By: #### 2 777-1, , #### [facility] CLIA [id number] [address] [place] [address] [place] Ketones Ql (U) Negative Normal Negative [facility] Comment on above: Order Comment: Speci men Type: BLOOD SPECIMEN Ordering Facility: [facility] Address: [address] [place] [address] Performed By: #### 2 777-1, 81158-6, #### [facility] CLIA [id number] [address] [place] [address] [place] Leukocyte esterase Test strip Ql (U) Negative Normal Negative [facility] Comment on above: Order Comment: Speci men Type: BLOOD SPECIMEN Ordering Facility: [facility] Address: [address] [place] [address] Performed By: #### 2 777-1, 99144-5, #### [facility] CLIA [id number] [address] [place] [address] [place] Nitrite Ql (U) Negative Normal Negative [facility] Comment on above: Order Comment: Speci men Type: BLOOD SPECIMEN Ordering Facility: [facility] Address: [address] [place] [address] Performed By: #### 2 777-1, 82521-4, #### [facility] CLIA [id number] [address] [place] [address] [place] pH (U) 6.5 [pH] Normal <8.5 [facility] Comment on above: Order Comment: Speci men Type: BLOOD SPECIMEN Ordering Facility: [facility] Address: [address] [place] [address] Performed By: #### 2 777-1, 66477-1, #### [facility] CLIA [id number] [address] [place] [address] [place] Protein (U) [Mass/Vol] Trace Abnormal Negative [facility] Comment on above: Order Comment: Speci men Type: BLOOD SPECIMEN Ordering Facility: [facility] Address: [address] [place] [address] Performed By: #### 2 777-1, 98300-7, #### [facility] CLIA [id number] [address] [place] [address] [place] RBC LM.HPF (Urine sed) [#/Area] 6-10 /HPF Abnormal 0-2 /HPF [facility] Comment on above: Order Comment: Speci men Type: BLOOD SPECIMEN Ordering Facility: [facility] Address: [address] [place] [address] Performed By: #### 2 777-1, 22788-0, #### [facility] CLIA [id number] [address] [place] [address] [place] Specific gravity (U) [Rel density] 1.021 Normal 1.005-1.030 [facility] Comment on above: Order Comment: Speci men Type: BLOOD SPECIMEN Ordering Facility: [facility] Address: [address] [place] [address] Performed By: #### 2 777-1, 12375-5, #### [facility] CLIA [id number] [address] [place] [address] [place] Urobilinogen Ql (U) 0.2 EU/dL Normal 0.2-1.0 EU/dL [facility] Comment on above: Order Comment: Speci men Type: BLOOD SPECIMEN Ordering Facility: [facility] Address: [address] [place] [address] Performed By: #### 2 777-1, , #### [facility] CLIA [id number] [address] [place] [address] [place] WBC LM.HPF (Urine sed) [#/Area] 0-5 /HPF Normal 0-5 /HPF [facility] Comment on above: Order Comment: Speci men Type: BLOOD SPECIMEN Ordering Facility: [facility] Address: [address] [place] [address] Performed By: #### 2 777-1, 52411-2, #### [facility] CLIA [id number] [address] [place] [address] [place] XR CHEST 1V [...] are unremarkable. Other: . IMPRESSION: See result. Barrel Rifler Broach: SUSI Transcribe Date/Time: Oct 29 2023 12:20A Dictated by : SHEA WORTHY MD This examination was interpreted and the report reviewed and electronically signed by: SHEA WORTHY MD on Oct 29 2023 12:22AM EST [id number] Normal [facility] aPTT PPPon 10-29-2023 aPTT Coag (PPP) [Time] 26.3 s Normal 23.0-32.4 [facility] Comment on above: Order Comment: Speci men Type: BLOOD SPECIMEN Ordering Facility: [facility] Address: [address] [place] [address] Performed By: #### 2 777-1, 83853-4, #### [facility] CLIA [id number] [address] [place] [address] [place] Basic metabolic 2000 panelon 10-28-2023 Anion gap [Moles/Vol] 12 mmol/L Normal 9-18 [facility] Comment on above: Order Comment: Speci men Type: BLOOD SPECIMEN Ordering Facility: [facility] Address: [address] [place] [address] Performed By: #### 2 777-1, 95096-0, #### [facility] CLIA [id number] [address] [place] [address] [place] Calcium [Mass/Vol] 7.8 mg/dL Low 8.5-10.2 [facility] Comment on above: Order Comment: Speci men Type: BLOOD SPECIMEN Ordering Facility: [facility] Address: [address] [place] [address] Performed By: #### 2 777-1, 12278-6, #### [facility] CLIA [id number] [address] [place] [address] [place] Chloride [Moles/Vol] 110 mmol/L High 97-105 [facility] Comment on above: Order Comment: Speci men Type: BLOOD SPECIMEN Ordering Facility: [facility] Address: [address] [place] [address] Performed By: #### 2 777-1, 71767-3, #### [facility] CLIA [id number] [address] [place] [address] [place] CO2 [Moles/Vol] 15 mmol/L Low 22-30 [facility] Comment on above: Order Comment: Speci men Type: BLOOD SPECIMEN Ordering Facility: [facility] Address: [address] [place] [address] Performed By: #### 2 777-1, 22738-5, #### [facility] CLIA [id number] [address] [place] [address] [place] Creatinine [Mass/Vol] 0.72 mg/dL Low 0.73-1.22 [facility] Comment on above: Order Comment: Speci men Type: BLOOD SPECIMEN Ordering Facility: [facility] Address: [address] [place] [address] Performed By: #### 2 777-1, 96688-4, #### [facility] CLIA [id number] [address] [place] [address] [place] [facility] Creatinine and Glomerular filtration rate.predicted panel (S/P/Bld) 125 mL/min/1.73m??? Normal >=60 [facility] Comment on above: Order Comment: Sana zuñiga Type: BLOOD SPECIMEN Ordering Facility: [facility] Address: [address] [place] [address] Result Comment: Lor mated Glomerular Filtration Rate [...] actual GFR. Performed By: #### 2 777-1, 28415-8, #### [facility] CLIA [id number] [address] [place] [address] [place] Glucose [Mass/Vol] 116 mg/dL High 74-99 [facility] Comment on above: Order Comment: Sana zuñiga Type: BLOOD SPECIMEN Ordering Facility: [facility] Address: [address] [place] [address] Result Comment: The [place] [employer] (ADA) provides guidance for cutoff [...] Standards of Medical Care in Diabetes 2016, [place] [employer]. Diabetes Care. 2016.39(Suppl 1). Performed By: #### 2 777-1, 22986-1, #### [facility] CLIA [id number] [address] [place] [address] [place] Potassium [Moles/Vol] 3.9 mmol/L Normal 3.7-5.1 [facility] Comment on above: Order Comment: Speci men Type: BLOOD SPECIMEN Ordering Facility: [facility] Address: [address] [place] [address] Performed By: #### 2 777-1, 44215-0, #### [facility] CLIA [id number] [address] [place] [address] [place] Sodium [Moles/Vol] 137 mmol/L Normal 136-144 [facility] Comment on above: Order Comment: Speci men Type: BLOOD SPECIMEN Ordering Facility: [facility] Address: [address] [place] [address] Performed By: #### 2 777-1, 46005-6, #### [facility] CLIA [id number] [address] [place] [address] [place] Urea nitrogen [Mass/Vol] 17 mg/dL Normal 9-24 [facility] Comment on above: Order Comment: Speci men Type: BLOOD SPECIMEN Ordering Facility: [facility] Address: [address] [place] [address] Performed By: #### 2 777-1, 83157-7, #### [facility] CLIA [id number] [address] [place] [address] [place] CBC W Auto Differential pane l (Bld)on 10-28-2023 Basophils (Bld) [#/Vol] 10*3/uL Normal <0.11 [facility] Comment on above: Order Comment: Speci men Type: BLOOD SPECIMEN Ordering Facility: [facility] Address: [address] [place] [address] Performed By: #### 2 777-1, 79873-1, #### [facility] CLIA [id number] [address] [place] [address] [place] Basophils/100 WBC (Bld) 0.1 % Normal [facility] Comment on above: Order Comment: Speci men Type: BLOOD SPECIMEN Ordering Facility: [facility] Address: [address] [place] [address] Performed By: #### 2 777-1, 68020-7, #### [facility] CLIA [id number] [address] [place] [address] [place] Differential cell count method Nom (Bld) Auto Normal [facility] Comment on above: Order Comment: Speci men Type: BLOOD SPECIMEN Ordering Facility: [facility] Address: [address] [place] [address] Performed By: #### 2 777-1, , #### [facility] CLIA [id number] [address] [place] [address] [place] Eosinophils (Bld) [#/Vol] 10*3/uL Normal <0.46 [facility] Comment on above: Order Comment: Speci men Type: BLOOD SPECIMEN Ordering Facility: [facility] Address: [address] [place] [address] Performed By: #### 2 777-1, , #### [facility] CLIA [id number] [address] [place] [address] [place] Eosinophils/100 WBC (Bld) 0.0 % Normal [facility] Comment on above: Order Comment: Speci men Type: BLOOD SPECIMEN Ordering Facility: [facility] Address: [address] [place] [address] Performed By: #### 2 777-1, , #### [facility] CLIA [id number] [address] [place] [address] [place] Erythrocyte distribution width (RBC) [Ratio] 14.4 % Normal 11.5-15.0 [facility] Comment on above: Order Comment: Speci men Type: BLOOD SPECIMEN Ordering Facility: [facility] Address: [address] [place] [address] Performed By: #### 2 777-1, 06298-5, #### [facility] CLIA [id number] [address] [place], [place] [address] [place] Hematocrit (Bld) [Volume fraction] 38.3 % Low 39.0-51.0 [facility] Comment on above: Order Comment: Speci men Type: BLOOD SPECIMEN Ordering Facility: [facility] Address: [address] [place] [address] Performed By: #### 2 777-1, 28135-9, #### [facility] CLIA [id number] [address] [place] [address] [place] Hemoglobin (Bld) [Mass/Vol] 12.0 g/dL Low 13.0-17.0 [facility] Comment on above: Order Comment: Speci men Type: BLOOD SPECIMEN Ordering Facility: [facility] Address: [address] [place] [address] Performed By: #### 2 777-1, 33637-9, #### [facility] CLIA [id number] [address] [place] [address] [place] Immature granulocytes (Bld) [#/Vol] 0.08 10*3/uL Normal <0.10 [facility] Comment on above: Order Comment: Speci men Type: BLOOD SPECIMEN Ordering Facility: [facility] Address: [address] [place], [place] [address] Performed By: #### 2 777-1, 54399-1, #### [facility] CLIA [id number] [address] [place] [address] [place] Immature granulocytes/100 WBC (Bld) 0.6 % Normal [facility] Comment on above: Order Comment: Speci men Type: BLOOD SPECIMEN Ordering Facility: [facility] Address: [address] [place] [address] Performed By: #### 2 777-1, 16474-5, #### [facility] CLIA [id number] [address] [place] [address] [place] Lymphocytes (Bld) [#/Vol] 1.19 10*3/uL Normal 1.00-4.00 [facility] Comment on above: Order Comment: Speci men Type: BLOOD SPECIMEN Ordering Facility: [facility] Address: [address] [place] [address] Performed By: #### 2 777-1, 58736-5, #### [facility] CLIA [id number] [address] [place] [address] [place] Lymphocytes/100 WBC (Bld) 8.2 % Normal [facility] Comment on above: Order Comment: Speci men Type: BLOOD SPECIMEN Ordering Facility: [facility] Address: [address] [place] [address] Performed By: #### 2 777-1, 28710-0, #### [facility] CLIA [id number] [address] [place] [address] [place] MCH (RBC) [Entitic mass] 26.5 pg Normal 26.0-34.0 [facility] Comment on above: Order Comment: Speci men Type: BLOOD SPECIMEN Ordering Facility: [facility] Address: [address] [place] [address] Performed By: #### 2 777-1, 15029-7, #### [facility] CLIA [id number] [address] [place] [address] [place] MCHC (RBC) [Mass/Vol] 31.3 g/dL Normal 30.5-36.0 [facility] Comment on above: Order Comment: Speci men Type: BLOOD SPECIMEN Ordering Facility: [facility] Address: [address] [place] [address] Performed By: #### 2 777-1, 63856-9, #### [facility] CLIA [id number] [address] [place] [address] [place] MCV (RBC) [Entitic vol] 84.5 fL Normal 80.0-100.0 [facility] Comment on above: Order Comment: Speci men Type: BLOOD SPECIMEN Ordering Facility: [facility] Address: [address] [place] [address] Performed By: #### 2 777-1, 50833-8, #### [facility] CLIA [id number] [address] [place] [address] [place] Monocytes (Bld) [#/Vol] 1.48 10*3/uL High <0.87 [facility] Comment on above: Order Comment: Speci men Type: BLOOD SPECIMEN Ordering Facility: [facility] Address: [address] [place] [address] Performed By: #### 2 777-1, 39962-9, #### [facility] CLIA [id number] [address] [place] [address] [place] Monocytes/100 WBC (Bld) 10.2 % Normal [facility] Comment on above: Order Comment: Speci men Type: BLOOD SPECIMEN Ordering Facility: [facility] Address: [address] [place] [address] Performed By: #### 2 777-1, 90552-1, #### [facility] CLIA [id number] [address] [place] [address] [place] Neutrophils (Bld) [#/Vol] 11.69 10*3/uL High 1.45-7.50 [facility] Comment on above: Order Comment: Speci men Type: BLOOD SPECIMEN Ordering Facility: [facility] Address: [address] [place], [place] [address] Performed By: #### 2 777-1, 21054-3, #### [facility] CLIA [id number] [address] [place] [address] [place] Neutrophils/100 WBC (Bld) 80.9 % Normal [facility] Comment on above: Order Comment: Speci men Type: BLOOD SPECIMEN Ordering Facility: [facility] Address: [address] [place] [address] Performed By: #### 2 777-1, 82168-6, #### [facility] CLIA [id number] [address] [place] [address] [place] Nucleated RBC (Bld) [#/Vol] 10*3/uL Normal <0.01 [facility] Comment on above: Order Comment: Speci men Type: BLOOD SPECIMEN Ordering Facility: [facility] Address: [address] [place] [address] Performed By: #### 2 777-1, 65579-1, #### [facility] CLIA [id number] [address] [place] [address] [place] Nucleated RBC/100 WBC (Bld) [Ratio] 0.0 /100 WBC Normal [facility] Comment on above: Order Comment: Speci men Type: BLOOD SPECIMEN Ordering Facility: [facility] Address: [address] [place] [address] Performed By: #### 2 777-1, 50682-1, #### [facility] CLIA [id number] [address] [place] [address] [place] Platelet mean volume (Bld) [Entitic vol] 9.3 fL Normal 9.0-12.7 [facility] Comment on above: Order Comment: Speci men Type: BLOOD SPECIMEN Ordering Facility: [facility] Address: [address] [place] [address] Performed By: #### 2 777-1, 54702-9, #### [facility] CLIA [id number] [address] [place] [address] [place] Platelets (Bld) [#/Vol] 180 10*3/uL Normal 150-400 [facility] Comment on above: Order Comment: Speci men Type: BLOOD SPECIMEN Ordering Facility: [facility] Address: [address] [place] [address] Performed By: #### 2 777-1, 38324-9, #### [facility] CLIA [id number] [address] [place] [address] [place] RBC (Bld) [#/Vol] 4.53 10*6/uL Normal 4.20-6.00 [facility] Comment on above: Order Comment: Speci men Type: BLOOD SPECIMEN Ordering Facility: [facility] Address: [address] [place] [address] Performed By: #### 2 777-1, 02948-6, #### [facility] CLIA [id number] [address] [place] [address] [place] WBC (Bld) [#/Vol] 14.46 10*3/uL High 3.70-11.00 [facility] Comment on above: Order Comment: Speci men Type: BLOOD SPECIMEN Ordering Facility: [facility] Address: [address] [place] [address] Performed By: #### 2 777-1, 10825-5, #### [facility] CLIA [id number] [address] [place] [address] [place] HISTORY PHYSICALon HISTORY PHYSICAL HNO ID: [id number] Author: SAMUEL ROBIN MD Service: General Surgery [...] No a (more content not included)... Normal [facility] Magnesium SerPl-mCncon 10-27 Magnesium [Mass/Vol] 1.8 mg/dL Normal 1.7-2.3 [facility] Comment on above: Order Comment: Sana zuñiga Type: BLOOD SPECIMEN Ordering Facility: [facility] Address: [address] [place] [address] Performed By: #### 2 777-1, 30467-1, 38806-7 #### [facility] CLIA [id number] [address] [place] [address] [place] PT panel Coag (PPP)on 2023 INR Coag (PPP) [Relative time] 1.2 {INR} Normal 0.9-1.3 [facility] Comment on above: Order Comment: Sana zuñiga Type: BLOOD SPECIMEN Ordering Facility: [facility] Address: [address] [place] [address] Result Comment: Winnie min K Antagonist (VKA) Therapeutic Range: INR 2 to 3 (Target INR of 2.5) Note: For patients treated with VKA drugs, such as warfarin, the [place] [employer] 2012 Guideline recommends [...] Chest 2012, 141:7S-47S Jonny RA, et al. [facility] 2017, 70: 252-289 Performed By: #### 2 777-1, 33676-6, #### [facility] CLIA [id number] [address] [place] [address] [place] PT Coag (PPP) [Time] 12.3 s Normal 9.7-13.0 [facility] Comment on above: Order Comment: Speci men Type: BLOOD SPECIMEN Ordering Facility: [facility] Address: [address] [place] [address] Performed By: #### 2 777-1, 16612-9, #### [facility] CLIA [id number] [address] [place] [address] [place] Phosphate SerPl-mCncon 10-27 Phosphate [Mass/Vol] 3.2 mg/dL Normal 2.7-4.8 [facility] Comment on above: Order Comment: Akbari men Type: BLOOD SPECIMEN Ordering Facility: [facility] Address: [address] [place] [address] Performed By: #### 2 777-1, 57545-5, #### [facility] CLIA [id number] [address] [place] [address] [place] SEPSIS LACTATEon 10-28-2023 Lactate [Moles/Vol] 2.0 mmol/L Normal <=2.0 [facility] Comment on above: Order Comment: Speci men Type: BLOOD SPECIMENOrdering Facility: [facility] Address: [address] [place] [address] Performed By: #### S LACT ####[facility] [id number] [place] [address] [place] TYPE + SCREENon 10-28-2023 ABO A Normal [facility] Comment on above: Order Comment: Speci men Type: BLOOD SPECIMEN Ordering Facility: [facility] Address: [address] [place] [address] Performed By: #### 2 4321-2, , 2776-08 #### [facility] CLIA [id number] [address] [place] [address] [place] HISTORICAL AB SCR STATUS Negative Normal [facility] Comment on above: Order Comment: Speci men Type: BLOOD SPECIMEN Ordering Facility: [facility] Address: [address] [place] [address] Performed By: #### 2 4321-2, , 2776-08 #### [facility] CLIA [id number] [address] [place] [address] [place] Rh Nom (Bld) Positive Normal [facility] Comment on above: Order Comment: Speci men Type: BLOOD SPECIMEN Ordering Facility: [facility] Address: [address] [place] [address] Performed By: #### 2 4321-2, , 2776-08 #### [facility] CLIA [id number] [address] [place] [address] [place] TYPE AND SCREEN EXPIRATION 10/31/2023 23:59 Normal [facility] Comment on above: Order Comment: Speci men Type: BLOOD SPECIMEN Ordering Facility: [facility] Address: [address] [place] [address] Performed By: #### 2 4321-2, , 1 #### [facility] CLIA [id number] [address] [place], [place] [address] [place] [address] [place] XR ABDOMEN 1V [...] right lower quadrant on the outside CT). Barrel Rifler Broach: PSCB Transcribe Date/Time: Oct 28 2023 5:30P Dictated by : WALTER BURGER MD This examination was interpreted and the report reviewed and electronically signed by: WALTER BURGER MD on Oct 28 2023 5:47PM EST [id number] Normal [facility] Basic metabolic 2000 panelOr dered By: [...] Inclusion of Race in Diagnosing Kidney Disease. [place] Journal of Kidney Diseases 2021;79(2):268-88.e1. 2. N Engl J Med 2020 Vol. 385 Issue 19 Pages 4474-9555 Glucose [Mass/Vol] 84 mg/dL 74 - 109 [...] (Bld) 36.8 % 24.0 - 44.0 % [facility] MCH (RBC) [Entitic mass] 27.4 pg 26.0 - 34.0 pg [facility] MCHC (RBC) [Mass/Vol] 32.8 g/dL 32.0 - 35.9 g/dL [facility] MCV (RBC) [Entitic vol] 84 fL 80 - 100 fL [facility] Monocytes (Bld) [#/Vol] 0.80 10*3/uL 0.20 - 1.00 K/uL [facility] Monocytes/100 WBC (Bld) 8.9 % 2.0 - 11.0 % [facility] Neutrophils (Bld) [#/Vol] 4.40 10*3/uL 1.50 - 8.00 K/uL [facility] Neutrophils/100 WBC (Bld) 50.6 % 31.0 - 76.0 % [facility] Nucleated RBC (Bld) [#/Vol] 0.01 10*3/uL [facility] Nucleated RBC/100 WBC (Bld) [Ratio] 0.1 % [facility] Platelet mean volume (Bld) [Entitic vol] 9.1 fL 7.5 - 11.2 fL [facility] Platelets (Bld) [#/Vol] [facility] Comment on above: Platelet cannot be q uantified due to the presence of platelet clumps. Platelet estimate appears normal. RBC (Bld) [#/Vol] 4.59 10*6/uL [facility] WBC (Bld) [#/Vol] 8.6 10*3/uL 4.5 - 11.5 K/uL [facility] CT Head WO contrastOrdered B y: David Kay on 07-16-2023 CT DLP 1126.71 (mGy.cm) [facility] Work Phone: CT Series HEAD W/O,HEAD W/O [facility] Work Phone: CTDI VOL 0.34 (mGy),47.31 (mGy) [facility] Work Phone: PHANTOM TYPE IEC Head Dosimetry Phantom,IEC Head Dosimetry Phantom [facility] Work Phone: [facility] Work Phone: CT Head WO contraston 2022 [...] in the left caudate nucleus. MACRO: None [facility] Radiology Study observation (narrative) [facility] MAGNESIUMon 07-16-2023 Interpretation and review of laboratory results Normal [facility] Magnesium [Mass/Vol] 2.1 mg/dL 1.6 - 2 .8 mg/dL [facility] Lithiumon 07-06-2023 Branch [Moles/Vol] 0.9 mmol/L Invalid Interpretation Code 0.5-1.2 [facility] Comment on above: Result Comment: A co ncentration of 0.5-0.8 mmol/L is advised for long-term use; concentrations of up to 1.2 mmol/L may be necessary during acute treatment. Detection Limit = 0.1 <0.1 indicates None Detected Performed at: [address] [id number] PhD Agata Narayan Performed By: #### 2 476631, 0480563, 4578467, 3605377, 580074462, 4919921, 6336234, 22933707, 4928616 ####[facility] [address] [place] [address] CBC w/Indiceson 07-04-2023 Erythrocyte distribution width (RBC) [Ratio] 13.8 % Normal 10.9-14.2 [facility] Comment on above: Performed By: #### 2 152844, 1564033, 7793691, 6525637, 505654000, 8097695, 7860121, 00211768, 5921404 #### [facility] [address] [place] [address] Hematocrit (Bld) [Volume fraction] 38.1 % Normal 37.7-49.0 [facility] Comment on above: Performed By: #### 2 818285, 7431385, 2345427, 2960256, 029133795, 9046314, 8421928, 44903696, 3383802 #### [facility] [address] [place] [address] Hemoglobin (Bld) [Mass/Vol] 12.7 g/dL Low 13.5-17.5 [facility] Comment on above: Performed By: #### 2 594259, 4156324, 1835365, 1031090, 237134091, 4002276, 3901006, 86827190, 7289324 #### [facility] [address] [place] [address] MCH (RBC) [Entitic mass] 27.6 pg Normal 27.0-34.0 [facility] Comment on above: Performed By: #### 2 321307, 4638928, 4522597, 2661393, 696116871, 0392221, 7493486, 67460887, 1839184 #### [facility] [address] [place] [address] MCHC (RBC) [Mass/Vol] 33.3 g/dL Normal 31.4-36.0 [facility] Comment on above: Performed By: #### 2 714831, 0894541, 6675278, 9423516, 247695748, 7549889, 6825383, 53634811, 3731425 #### [facility] [address] [place] [address] MCV (RBC) [Entitic vol] 83.0 fL Normal 80.0-100.0 [facility] Comment on above: Performed By: #### 2 613328, 9631839, 9637091, 2894444, 588111666, 9297724, 6132949, 10823565, 6853796 #### [facility] [address] [place] [address] Platelet mean volume (Bld) [Entitic vol] 8.5 fL Normal 6.4-10.8 [facility] Comment on above: Performed By: #### 2 830916, 8187093, 7126102, 5861891, 097707946, 4960970, 7557720, 59128853, 8022736 #### [facility] [address] [place] [address] Platelets (Bld) [#/Vol] 175.0 E9/L Normal 150.0-500.0 [facility] Comment on above: Performed By: #### 2 405319, 6042994, 6913306, 0066095, 837991025, 9142459, 6664087, 74523807, 4227361 #### [facility] [address] [place] [address] RBC (Bld) [#/Vol] 4.6 E12/L Normal 4.3-5.9 [facility] Comment on above: Performed By: #### 2 407783, 5153832, 5418393, 0383144, 590410591, 8915594, 1478272, 29432624, 7744744 #### [facility] [address] [place] [address] WBC corrected for nucl RBC Auto (Bld) [#/Vol] 5.9 E9/L Normal 4.0-11.0 [facility] Comment on above: Performed By: #### 2 265066, 7922433, 2465195, 1347874, 898465839, 6522522, 2186639, 91311902, 6123575 #### [facility] [address] [place] [address] CHEMISTRYOrdered By: SYSTEM SYSTEM on 07-04-2023 25-hydroxyvitamin D3 [Mass/Vol] 33.7 ng/mL Normal 30.0 - 100.0 ng/mL [facility] Remisol Comment on above: Interpretive Data: Vitamin D deficiency has been defined as a level of serum 25-OH vitamin D less than 20 ng/mL (1,2) by the [place] [employer] and an Endocrine Society practice guideline. The Endocrine Society further defined vitamin D insufficiency as a level between 21 and 29 ng/mL (2). 1. IOM ([place] [employer]). 2010. Dietary reference intakes for [...] 118 mL/min/1.73 m2 Normal >=59mL/min/1 .73 m2 [facility] Chem S Comment on above: Interpretive Data: [...] 07-04-2023 Albumin [Mass/Vol] 3.7 g/dL Normal 3.3-5.0 [facility] Comment on above: Performed By: #### 2 555225, 0445156, 6792881, 4528737, 480146655, 4859582, 4387186, 77006164, 7105274 #### [facility] [address] [place] [address] Albumin/Globulin (S) [Mass conc ratio] 1.0 Low 1.1-2.2 [facility] Comment on above: Performed By: #### 2 861848, 1740862, 4860227, 1030399, 387918771, 4190900, 4121088, 51284039, 9873570 #### [facility] [address] [place] [address] ALP [Catalytic activity/Vol] 37 Int._Unit/L Normal 21-98 [facility] Comment on above: Performed By: #### 2 654605, 7036782, 2721931, 2848281, 525887495, 8289235, 7228601, 55299929, 0483233 #### [facility] [address] [place] [address] ALT No additional P-5'-P [Catalytic activity/Vol] 15 Int._Unit/L Normal 6-46 [facility] Comment on above: Performed By: #### 2 478890, 8498748, 8743361, 5390132, 225288063, 2584411, 4209100, 21907162, 0878549 #### [facility] [address] [place] [address] Anion gap [Moles/Vol] 12 mmol/L Normal 6-16 [facility] Comment on above: Performed By: #### 2 553883, 1031197, 7783318, 0514741, 222525740, 6265370, 9805019, 99842959, 7812383 #### [facility] [address] [place] [address] AST [Catalytic activity/Vol] 22 Int._Unit/L Normal 5-43 [facility] Comment on above: Performed By: #### 2 301809, 8822649, 0873725, 1448463, 192406422, 5236538, 1830291, 54690446, 5258462 #### [facility] [address] [place] [address] Bilirubin [Mass/Vol] 0.1 mg/dL Normal 0.0-1.1 [facility] Comment on above: Performed By: #### 2 571926, 9348344, 7167413, 8648253, 442107554, 4128442, 7338924, 03136734, 2546469 #### [facility] [address] [place] [address] Calcium [Mass/Vol] 9.7 mg/dL Normal 8.9-11.1 [facility] Comment on above: Performed By: #### 2 251374, 0749596, 6029970, 7086349, 669799844, 9188360, 8987281, 79989907, 4655125 #### [facility] [address] [place] [address] Chloride [Moles/Vol] 108 mmol/L Normal 101-111 [facility] Comment on above: Performed By: #### 2 749758, 5078286, 8238461, 1772833, 140451277, 6460022, 8809660, 90749563, 9611851 #### [facility] [address] [place] [address] CO2 [Moles/Vol] 23 mmol/L Normal 21-[address] [facility] Comment on above: Performed By: #### 2 040204, 4013400, 5374357, 2612277, 262482981, 3939698, 0344980, 41039958, 0916541 #### [facility] [address] [place] [address] Creatinine [Mass/Vol] 0.9 mg/dL Normal 0.5-1.3 [facility] Comment on above: Performed By: #### 2 970003, 4586886, 7737087, 1311408, 386387922, 6033199, 5156749, 97534150, 8318706 #### [facility] [address] [place] [address] Globulin (S) [Mass/Vol] 3.8 g/dL Normal 1.4-4.0 [facility] Comment on above: Performed By: #### 2 883953, 9955877, 7555231, 6490166, 428437382, 6968009, 0961267, 68903033, 9623267 #### [facility] [address] [place] [address] Glucose [Mass/Vol] 86 mg/dL Normal 55-199 [facility] Comment on above: Result Comment: If t his glucose result represents a fasting glucose, interpretation should refer to the following reference range: 55-99 mg/dL Performed By: #### 2 306778, 0720411, 9079771, 7105704, 039158295, 8165390, 9050753, 02193013, 2764838 #### [facility] [address] [place] [address] Potassium [Moles/Vol] 4.3 mmol/L Normal 3.5-5.3 [facility] Comment on above: Performed By: #### 2 412653, 7957765, 4011725, 1304461, [id number], 1923387, 3074228, 06672715, 3637765 #### [facility] [address] [place] [address] Protein [Mass/Vol] 7.5 g/dL Normal 6.0-7.8 [facility] Comment on above: Performed By: #### 2 008514, 0034241, 1351211, 7853443, [id number], 0297494, 3437828, 64594979, 5976948 #### [facility] [address] [place] [address] Sodium [Moles/Vol] 139 mmol/L Normal 135-145 [facility] Comment on above: Performed By: #### 2 564458, 9035615, 8908779, 4783976, 522021956, 2234952, 8619446, 01724030, 9053765 #### [facility] [address] [place] [address] Urea nitrogen [Mass/Vol] 20 mg/dL Normal 5-21 [facility] Comment on above: Performed By: #### 2 008397, 8937351, 3298306, 7359406, 659489641, 7756290, 5261957, 49681356, 5214429 #### [facility] [address] [place] [address] Urea nitrogen/Creatinine [Mass ratio] 22 No Units High 10-20 [facility] Comment on above: Performed By: #### 2 693809, 0647343, 2341101, 5217614, 938388543, 3515642, 2603490, 30042204, 3292221 #### [facility] [address] [place] [address] Free T4on 07-04-2023 Free T4 [Mass/Vol] 0.70 ng/dL Normal 0.58-1.64 [facility] Comment on above: Performed By: #### 2 439389, 5857778, 7088789, 7940264, 901283481, 2598787, 3595904, 35566331, 4246998 #### [facility] [address] [place] [address] HEMATOLOGYOrdered By: Jersey Arnett on 07-04-2023 Erythrocyte [...] 5.9 E9/L Normal 4.0 - 11.0 E9/L [facility] HemeAutoSS Lipid Panelon 07-04-2023 Cholesterol [Mass/Vol] 145 mg/dL Normal 120-200 [facility] Comment on above: Performed By: #### 2 332357, 2501778, 7341465, 3373559, 314056863, 6012869, 6047451, 31156830, 9824810 #### [facility] [address] [place] [address] Cholesterol in HDL [Mass/Vol] 40 mg/dL Invalid Interpretation Code [facility] Comment on above: Result Comment: HDL > or equal to 60 mg/dL: Low cardiovascular risk HDL < 40 mg/dL : High cardiovascular risk Performed By: #### 2 620616, 5686885, 9161639, 8870814, 931225742, 6350782, 7447966, 96481563, 0758838 #### [facility] [address] [place] [address] Cholesterol in LDL [Mass/Vol] 86 mg/dL Normal <=129 [facility] Comment on above: Performed By: #### 2 917183, 4948535, 6804274, 3657454, 967522418, 8660200, 3966329, 06031384, 1652502 #### [facility] [address] [place] [address] Cholesterol in VLDL [Mass/Vol] 27 mg/dL Normal 7-40 [facility] Comment on above: Performed By: #### 2 999600, 3176441, 9754363, 7536865, 388140161, 7283497, 9739398, 02980980, 7884368 #### [facility] [address] [place] [address] Triglyceride [Mass/Vol] 133 mg/dL Normal <=149 [facility] Comment on above: Performed By: #### 2 994488, 8656316, 6036649, 1770697, 657756530, 7836611, 3843699, 42147678, 1067076 #### [facility] [address] [place] [address] Physician Orderon 07-04-2023 Physician Order [id number]# 1.00TIFF Normal [facility] TSHon 07-04-2023 TSH Qn 2.75 m[IU]/L Normal 0.34-5.60 [facility] Comment on above: Performed By: #### 2 004067, 5487814, 3246186, 4013727, 476042539, 7934622, 5726074, 32186242, 5520164 #### [facility] [address] [place] [address] Valproic Acidon 07-04-2023 Valproate [Moles/Vol] 79 microgram/mL Normal 50-99 [facility] Comment on above: Performed By: #### 2 882878, 6555980, 5936698, 3786473, 646420831, 8341965, 8536973, 04594266, 2076716 #### [facility] [address] [place] [address] Vitamin D 25 Hydroxyon 07-04 25-hydroxyvitamin D3 [Mass/Vol] 33.7 ng/mL Normal 30.0-100.0 [facility] Comment on above: Result Comment: Vit alfredo D deficiency has been defined as a level of serum 25-OH vitamin D less than 20 ng/mL (1,2) by the [place] of [employer] and an Endocrine Society practice guideline. The Endocrine Society further defined vitamin D insufficiency as a level between 21 and 29 ng/mL (2). 1. IOM ([place] of Medicine). 2010. Dietary reference intakes for calcium and D. [place]: The National Academies Press. 2. Denia JACINTO, Marcelino CHAIDEZ, Ann GARVEY, et al. Evaluation, treatment, and prevention of vitamin D deficiency: an Endocrine Society clinical practice guideline. JCEM. 2010; 96 (7):1911-30. Performed By: #### 2 249310, 1132733, 7157287, 2748497, 996296966, 1622849, 4710889, 56017980, 2794880 #### [facility] [address] [place] [address] eGFRon 07-04-2023 GFR/1.73 sq M.predicted among non-blacks MDRD (S/P/Bld) [Vol rate/Area] 118 mL/min/1.73 m2 Normal >=59 [facility] Comment on above: Order Comment: Order added by Discern Expert. Result Comment: Mule Rider jenni kidney disease could be indicated at eGFR's of less than 60 mL/min/1.73m2. Kidney failure is indicated at less than 15 mL/min/1.73m2. Performed By: #### 2 575570, 3226219, 2366104, 4849108, 510812419, 7888427, 8042908, 58880793, 8367233 #### [facility] [address] [place] [address] XR Chest PA and Lateralon EXAMINATION: XR [...] indicated with dedicated abdominal radiograph/CT. MACRO: None [facility] Radiology Study observation (narrative) [facility] X[facility] Chest PA and LateralOrder ed By: Krystal Epstein on [facility]-22-2023 [facility]: DEPAKENE/ VALPROIC ACIDon DEPAKENE 59.3 ug/ml Normal 50.0-100.0 [facility] Comment on above: Performed By: #### V ALP #### [facility] [address] [address] [address] Nikky King DEPAKENE/ VALPROIC ACIDon DEPAKENE 43.6 ug/ml Critically low 50.0-100.0 [facility] Comment on above: Performed By: #### V ALP #### [facility] [address] [address] [address] Nikky King LITHIUMon 12-06-2022 Branch (Eskalith(R)), Serum 0.8 mmol/L Normal 0.5-1.2 [facility] Comment on above: Result Comment: A co ncentration of 0.5-0.8 mmol/L is advised for long-term use; concentrations of up to 1.2 mmol/L may be necessary during acute treatment. Detection Limit = 0.1 <0.1 indicates None Detected Performed By: #### L ITHIUM #### [facility] [address] [place] [address] Dr. Nikky King DEPAKENE/ VALPROIC ACIDon DEPAKENE 61.7 ug/ml Normal 50.0-100.0 [facility] Comment on above: Performed By: #### V ALP #### [facility] [address] [place] [address] Dr. Nikky King LITHIUMon 11-23-2022 Branch (Eskalith(R)), Serum 0.9 mmol/L Normal 0.5-1.[address] [facility] Comment on above: Result Comment: A co ncentration of 0.5-0.8 mmol/L is advised for long-term use; concentrations of up to 1.2 mmol/L may be necessary during acute treatment. Detection Limit = 0.1 <0.1 indicates None Detected Performed By: #### L ITHIUM #### [facility] [address] [place] [address] Dr. Nikky King CALCIUMon 08-22-2022 Calcium [Mass/Vol] 9.6 mg/dL Normal 8.5-10.1 [facility] Comment on above: Performed By: #### C A, CREA #### [facility] [address] [place] [address] Dr. Nikky King CREATININEon 08-22-2022 Creatinine [Mass/Vol] 0.84 mg/dL Normal 0.70-1.30 [facility] Comment on above: Performed By: #### C A, CREA #### [facility] [address] [place] [address] Dr. Nikky King EGFR-AF GRENADIAN >60 Normal >=[address] [facility] Comment on above: Performed By: #### C A, CREA #### [facility] [address] [place] [address] Dr. Nikky King EGFR-NON AF GRENADIAN >60 Normal >=60 [facility] Comment on above: Performed By: #### C A, CREA #### [facility] [address] [place] [address] Dr. Nikky King LITHIUMon 07-05-2022 Branch (Eskalith(R)), Serum 0.9 mmol/L Normal 0.5-1.2 [facility] Comment on above: Result Comment: A co ncentration of 0.5-0.8 mmol/L is advised for long-term use; concentrations of up to 1.2 mmol/L may be necessary during acute treatment. Detection Limit = 0.1 <0.1 indicates None Detected Performed By: #### L ITHIUM #### [facility] [address] [place] [address] Dr. Nikky King Vital Signs Date Time Vital Sign Value Performing Clinician Severinoi lity 12-02-2024 12:32-0400 Body height 167.6 cm Cris Lowe PA Work Phone: [facility] 12-02-2024 12:32-0400 Body mass index (BMI) [Ratio] 31.96 kg/m2 Cris Lowe PA Work Phone: [facility] 12-02-2024 12:32-0400 Body weight 89.81 kg Cris Lowe PA Work Phone: [facility] 12-02-2024 12:32-0400 Diastolic blood pressure 82 mm[Hg] Cris Lowe PA Work Phone: [facility] 12-02-2024 12:32-0400 Systolic blood pressure 128 mm[Hg] Cris Lowe PA Work Phone: [facility] 05-21-2024 09:29-0400 Body height 167.6 cm Cris Lowe PA Work Phone: [facility] 05-21-2024 09:29-0400 Body mass index (BMI) [Ratio] 31.96 kg/m2 Cris Lowe PA Work Phone: [facility] 05-21-2024 09:29-0400 Body weight 89.81 kg Cirs Lowe PA Work Phone: [facility] 05-21-2024 09:29-0400 Diastolic blood pressure 90 mm[Hg] Cris Lowe PA Work Phone: [facility] 05-21-2024 09:29-0400 Systolic blood pressure 136 mm[Hg] Cris BANG Work Phone: [facility] 12-28-2023 14:30-0400 Diastolic blood pressure 89 mm[Hg] Mari Traore DMD Work Phone: [facility] 12-28-2023 14:30-0400 Heart rate 69 /min Mari Traore DMD Work Phone: [facility] 12-28-2023 14:30-0400 Respiratory rate 10 /min Mari Traore DMD Work Phone: [facility] 12-28-2023 14:30-0400 SaO2% (BldA) [Mass fraction] 100 % Mari Traore DMD Work Phone: [facility] 12-28-2023 14:30-0400 Systolic blood pressure 135 mm[Hg] Mari Traore DMD Work Phone: [facility] 12-28-2023 13:52-0400 Body temperature 97.3 [degF] Mari Traore DMD Work Phone: [facility] 12-28-2023 09:15-0400 Body height 167.6 cm Mari Traore DMD Work Phone: [facility] 12-28-2023 09:15-0400 Body mass index (BMI) [Ratio] 31.8 kg/m2 Mari Traore DMD Work Phone: [facility] 12-28-2023 09:15-0400 Body weight 89.36 kg Mari Traore DMD Work Phone: [facility] 12-19-2023 11:23-0400 Diastolic blood pressure 90 mm[Hg] Ling Markiv POLE LIFT OPERATOR-CATTLE BROKER Work Phone: [facility] 12-19-2023 11:23-0400 Systolic blood pressure 132 mm[Hg] Ling Markiv POLE LIFT OPERATOR-CATTLE BROKER Work Phone: [facility] 12-19-2023 11:03-0400 Body height 167.6 cm Ling Markiv POLE LIFT OPERATOR-CATTLE BROKER Work Phone: [employer] 12-19-2023 11:03-0400 Body mass index (BMI) [Ratio] 31.8 kg/m2 Ling Coffman POLE LIFT OPERATOR-CATTLE BROKER Work Phone: [employer] 12-19-2023 11:03-0400 Body temperature 97.81 [degF] Ling Coffman POLE LIFT OPERATOR-CATTLE BROKER Work Phone: [employer] 12-19-2023 11:03-0400 Body weight 89.36 kg Ling Coffman POLE LIFT OPERATOR-CATTLE BROKER Work Phone: [employer] 12-19-2023 11:03-0400 Heart rate 59 /min Ling Coffman POLE LIFT OPERATOR-CATTLE BROKER Work Phone: [employer] 12-19-2023 11:03-0400 Respiratory rate 18 /min Ling Coffman POLE LIFT OPERATOR-CATTLE BROKER [facility] 12-19-2023 11:03-0400 SaO2% (BldA) [Mass fraction] 97 % Ling Coffman POLE LIFT OPERATOR-CATTLE BROKER Work Phone: [facility] 12-03-2023 13:07-0400 Body height 167.6 cm Oscar Ruiz MD Work Phone: [facility] 12-03-2023 13:07-0400 Body weight 92.53 kg Oscar Ruiz MD Work Phone: [facility] 12-03-2023 13:07-0400 Diastolic blood pressure 76 mm[Hg] Oscar Ruiz MD Work Phone: [facility] 12-03-2023 13:07-0400 Heart rate 71 /min Oscar Ruiz MD Work Phone: [facility] 12-03-2023 13:07-0400 Systolic blood pressure 111 mm[Hg] Oscar Ruiz MD Work Phone: [facility] 11-28-2023 09:48-0400 Body height 167.6 cm Victoria Daniel POLE LIFT OPERATOR.CATTLE BROKER Work Phone: [facility] 11-28-2023 09:48-0400 Body temperature 97.5 [degF] Victoria Daniel POLE LIFT OPERATOR.CATTLE BROKER Work Phone: [facility] 11-28-2023 09:48-0400 Body weight 87.54 kg Victoria Daniel POLE LIFT OPERATOR.CATTLE BROKER Work Phone: [facility] 11-28-2023 09:48-0400 Diastolic blood pressure 66 mm[Hg] Victoria Daniel POLE LIFT OPERATOR.CATTLE BROKER Work Phone: [facility] 11-28-2023 09:48-0400 Heart rate 83 /min Victoria Daniel POLE LIFT OPERATOR.CATTLE BROKER Work Phone: [facility] 11-28-2023 09:48-0400 Systolic blood pressure 134 mm[Hg] Victoria Daniel POLE LIFT OPERATOR.CATTLE BROKER Work Phone: [facility] 07-16-2023 08:06-0500 Body mass index (BMI) [Ratio] 33.97 kg/m2 Kim Beltre MD Work Phone: [facility] 07-16-2023 08:06-0500 Body temperature 97.5 [degF] Kim Beltre MD Work Phone: [facility] 07-16-2023 08:06-0500 Body weight 90.27 kg Kim Beltre MD Work Phone: [facility] 07-16-2023 08:06-0500 Diastolic blood pressure 80 mm[Hg] Kim Beltre MD Work Phone: [facility] 07-16-2023 08:06-0500 Heart rate 37 /min Kim Beltre MD Work Phone: [facility] 07-16-2023 08:06-0500 Respiratory rate 15 /min Kim Beltre MD Work Phone: [facility] 07-16-2023 08:06-0500 SaO2% (BldA) [Mass fraction] 100 % Kim Beltre MD Work Phone: [facility] 07-16-2023 08:06-0500 Systolic blood pressure 110 mm[Hg] Kim Beltre MD Work Phone: [facility] Encounters Encounter Date Encounter Type Care Provider Facility Start: 12-16-2024 End: 12-16-2024 Telephone encounter To Be Assigned [facility] Physicia n Referral Service Comment on above: [...] Letter encounter Aileen Corcoran DDS Work Phone: [facility] Start: 05-21-2024 End: 05-21-2024 Bamboo flowsheet Cris [...] Letter encounter Aileen Corcoran DDS Work Phone: [facility] Start: 02-13-2024 End: 02-13-2024 Lab Drop off HERMAN CRANE [facility] Start: 02-13-2024 End: 02-13-2024 ambulatory HERMAN CRANE Facility:[facility] Start: 01-29-2024 End: 01-29-2024 ambulatory CRIS ELBA Not Available Start: 01-11-2024 Telephone encounter Cris Dinh RN Colorectal Surgery Comment on above: Mapping Specialist - O ther Start: 12-28-2023 End: 12-31-2023 Patient encounter procedure Mari Traore DMD Work Phone: [facility] Dentistry Start: 12-28-2023 End: 12-28-2023 Subsequent hospital visit by physician Mari Traore DMD Work Phone: [facility] Ambulatory Surgery Start: 12-28-2023 End: 12-31-2023 ambulatory RYAN DALLASDYAN Facility:[facility] Start: 12-25-2023 Telephone encounter Shayy Chandler RN [facility] Pre-Admission Testing Comment on above: Pre-surgical Evaluat ion (DD adult dental restorations 12/27 under [place] at [place]. PAT completed - consent request sent to main - see future encounter for results. CHRISTINA RN spoke to [facility], confirmed [facility], [place] address, and 0900 arrival time/) Pre-surgical Evaluat ion (Anesthesia Attestaion for dental surgery scanned in mushroom growth media mixer) Start: 12-20-2023 End: 12-20-2023 Orders Only Victoria Sanchez POLE LIFT OPERATOR.CATTLE BROKER Work Phone: General Surgery Comment on above: Sigmoid volvulus (HC C) (Primary Dx) Start: 12-19-2023 End: 12-19-2023 Patient encounter procedure Ling Ridleyclaudia POLE LIFT OPERATOR-CATTLE BROKER Work Phone: [facility] Pre-Admission Testing Comment on above: Pre-op testing (Prim marylin Dx); Body mass index (BMI) 31.0-31.9, adult Start: 12-19-2023 End: 12-19-2023 Patient encounter status Ling Coffman POLE LIFT OPERATOR-CATTLE BROKER Work Phone: [facility] Work Phone: Start: 12-19-2023 ambulatory RYAN ZURITA Facilit y:[facility] Start: 12-19-2023 Encounter for other preprocedural examination [facility]ING COFFMAN [facility] Start: 12-11-2023 End: 12-11-2023 ambulatory EPIFANIO YUKO Not Available Start: 12-03-2023 End: 12-04-2023 ambulatory Rafael Giraldo MD Work Phone: Urology Start: 12-03-2023 End: 12-03-2023 Office outpatient visit 5 minutes Oscar Ruiz MD Work Phone: Urology Comment on above: Phimosis (Primary Dx ) Start: 11-28-2023 End: 11-29-2023 ambulatory VICTORIA SANCHEZ Facility:[facility] Start: 11-28-2023 End: 11-28-2023 Patient encounter procedure Victoria Sanchez POLE LIFT OPERATOR.CATTLE BROKER Work Phone: General Surgery Comment on above: Postoperative visit (Primary Dx) Start: 11-12-2023 Telephone encounter Cris Dinh RN Colorectal Surgery Comment on above: Mapping Specialist - O ther Start: 11-07-2023 End: 11-07-2023 ambulatory PHOENIX CARDENAS Facility:[facility] Start: 10-28-2023 Evaluation and management of inpatient PHOENIX CARDENAS Facility:[facility] Start: 10-10-2023 Admission to [facility] Coleen Dodson DDS Other Phone: [facility] Start: 07-16-2023 End: 07-16-2023 Emergency department patient visit Kim Beltre MD Work Phone: [facility] Emergency Department Comment on above: bradycardia (Low HR (33)) Start: 07-16-2023 End: 07-16-2023 Subsequent hospital visit by physician Harpreet Mccurdy DDS Work Phone: [facility] Radiology CT Scan Comment on above: Arrived Start: 07-04-2023 End: 07-04-2023 ambulatory HERMAN CRANE Facility:[facility] Start: 07-04-2023 End: 07-04-2023 Lab Drop off HERMAN CRANE [facility] Start: 06-26-2023 Telephone encounter Shanna marquez RN [facility] Pre Surgical Evaluation Comment on above: Pre-surgical Evaluat ion (Informed Consent for dental surgery & Anesthesia consent obtained) Start: 06-22-2023 End: 06-22-2023 Subsequent hospital visit by physician Alin Op Xray 2 [facility] Radiology Comment on above: Pre-op exam Start: 06-22-2023 End: 06-22-2023 Patient encounter procedure Pse Anesthesia [facility] Pre Surgical Evaluation Comment on above: Pre-op evaluation (P rimary Dx) Start: 06-22-2023 End: 06-22-2023 Preprocedural examination done Pse Anesthesia [facility] Work Phone: Start: 05-25-2023 Admission to [facility] Hiram Rodriguez DDS Work Phone: [facility] [...] specified special examinations DR HERMAN CRANE [facility] Start: 08-22-2022 End: 08-23-2022 ambulatory [...] Start: 03-29-2022 Telephone encounter To Be Assigned [facility] Physician Referral Service Comment on above: Medical Record Revie w Procedures Date Procedure Procedure Detail Performing Clinician Start: 12-19-2023 Basic metabolic pane l calcium total Ling Markiv POLE LIFT OPERATOR-CATTLE BROKER Work Phone: Start: 10-28-2023 Antibody screen PHOENIX CARDENAS Comment on above: Order Comment: Speci men Type: BLOOD SPECIMEN Ordering Facility: [facility] Address: [address] [place] [address] Performed By: #### 2 4321-2, 85911-1, 2777-1 #### [facility] CLIA [id number] [address] [place] [address] [place] Start: 07-16-2023 End: [...] DTaP,Tdap,Td Vaccine (2 - Td or Tdap) [facility] Start: 12-02-2024 End: 12-02-2024 [facility] Comment on above: Arrived Start: 05-21-2024 End: 05-21-2024 Patient encounter procedure 05/21/2024 9:40 AM EDT Office Visit [facility] [address] [place] [id number] Cris Walters PA [address] [place] [address] [facility] Comment on above: Arrived Start: 04-20-2024 COVID-19 Vaccine ( season) COVID-19 Vaccine ( season) [facility] Start: 04-20-2024 COVID-19 Vaccine ( season) COVID-19 Vaccine ( season) [facility] Start: 04-20-2024 Influenza vaccination Influenza Vacc ine (#1) [facility] Start: 03-11-2024 End: 03-11-2024 Patient encounter procedure 03/11/2024 9:00 AM EDT Office Visit [facility] [address] [place] [address] [address] [place] [address] Iain Lazcano MD [address] [place] [address] Cataracts Ophthalmology Comment on above: Cataracts Start: 12-28-2023 End: 12-28-2023 Admission to same day surgery center 12/28/2023 10:01 AM EDT - 12/28/2023 12:21 PM EDT Surgery [facility] Ambulatory Surgery [address] [place] [id number] Mari Traore, DMD [address] [place] [address] DENTAL RESTORATIONS [facility] Ambulatory Surgery Comment on above: DENTAL RESTORATIONS Start: 12-28-2023 End: 12-28-2023 DENTAL RESTORATIONS [facility] Start: 12-28-2023 Subsequent hospital visit by physician 12/28/2023 10:01 AM EDT Hospital Encounter [facility] Ambulatory Surgery [address] [place] [address] Mari Traore, DMD [address] [place] [address] [facility] Ambulatory Surgery Start: 12-28-2023 End: 12-28-2023 Patient encounter procedure 12/28/2023 9:00 AM EDT Procedure Visit [facility] [address] [place] [address] Mari Traore, DMD [address] [place], [place] [id number] [facility] Start: 08-20-2023 Behavioral Health Screening Behavioral Health Screening [facility] Start: 08-20-2023 Depression Assessment Depression Ass essment [facility] Start: 07-16-2023 End: 07-16-2023 DENTAL RESTORATIONS DENTAL RESTORATIONS Routine scheduled Caries 07/16/2023 1:45 PM EST [facility] Start: 07-16-2023 End: 07-16-2023 Admission to same day surgery center 07/16/2023 9:27 AM EST - 07/16/2023 11:24 AM EST Surgery [facility] Ambulatory Surgery [address] [place] [address] Harpreet Mccurdy, DDS [address] [place] [address] DENTAL RESTORATIONS [facility] Ambulatory Surgery Comment on above: DENTAL RESTORATIONS Start: 07-16-2023 End: 07-16-2023 DENTAL RESTORATIONS DENTAL RESTORATIONS Routine scheduled Caries 07/16/2023 9:27 AM EST [facility] Start: 07-16-2023 Subsequent hospital visit by physician [facility] Ambulatory Surgery Start: 06-22-2023 End: 06-22-2023 Patient encounter procedure 06/22/2023 2:30 PM EDT Office Visit [facility] [address] [place] [address] Franc Beyer MD [address] [place], [place] [id number] [facility] Pediatric Comprehensive [facility] Start: 04-20-2023 COVID-19 Vaccine ( season) COVID-19 Vaccine ( season) [facility] Start: 04-20-2023 Influenza vaccination Influenza Vacc ine (#1) [facility] Start: 05-20-2022 Influenza vaccination Influenza Vacc ine (#1) [facility] Start: 04-20-2022 Influenza vaccination INFLUENZA (#1) [facility] Start: 08-20-2021 DEPRESSION ASSESSMENT DEPRESSION ASS ESSMENT [facility] Start: 08-10-2021 COVID-19 VACCINE (4 - Booster for Pfizer series) COVID-19 VACCINE (4 - Booster for Pfizer series) [facility] Start: 2019 HPV Vaccine (optiona l start 27-45 years) HPV Vaccine (optional start 27-45 years) [facility] Start: 02-17-2014 Annual wellness visit Annual W ellness Visit ([id number]) [facility] [facility] Start: 2011 Hepatitis A (HAV) Vaccine (optional start 19+ years) Hepatitis A (HAV) Vaccine (optional start 19+ years) [facility] Start: 2011 Hepatitis B vaccination Hepatitis B (HBV) Vaccine (1 of 3 - 19+ 3-dose series) [facility] Start: 2011 Hepatitis B Vaccine (1 of 3 - 19+ 3-dose series) Hepatitis B Vaccine (1 of 3 - 19+ 3-dose series) [facility] Start: 2011 Urine microalbumin profile DTAP,TDAP,TD (1 - Tdap) [facility] Start: 2010 Annual PCP Team Chronic Disease Visit Annual PCP Team Chronic Disease Visit [facility] Start: 2010 Hepatitis C screening [facility] Start: 2010 HEPATITIS C SCREENING HEPATITIS C SC RENATE [facility] Start: 2010 HIV SCREENING HIV SCREENING [facility] Start: 2010 HIV screening HIV Screening [facility] Start: 2007 HIV screening HIV Test [facility] Start: 2004 Adult depression screening assessment DEPRESSION SCREENING [facility] Start: 1992 HEPATITIS B (1 of 3 - 3-dose series) HEPATITIS B (1 of 3 - 3-dose series) [facility] Start: 1992 Hepatitis B vaccination Hepatitis B (HBV) Vaccine (1 of 3 - 3-dose series) [facility] Start: 1992 Thyroid stimulating hormone measurement TSH [facility] DENTAL RESTORATIONS DENTAL OMAR RATIONS Routine scheduled Caries [facility] URINALYSIS, REFLEX MICROSCOPIC URINALYSIS, REFLEX MICROSCOPIC Lab Routine Screening for genitourinary condition Ordered: 12/03/2023 [facility] Work Phone: Comment on above: Ordered: 12/03/2023 [facility] Immunizations Immunization Date Immunization Notes Care Provider Jason lowe 06-15-2021 influenza, injectabl e, quadrivalent, preservative free To Assigned [facility] 06-15-2021 influenza virus vacc ine, unspecified formulation To Assigned [facility] 05-26-2020 influenza, injectabl e, quadrivalent, preservative free To Assigned [facility] 07-10-2019 tetanus toxoid, redu alex diphtheria toxoid, and acellular pertussis vaccine, adsorbed To Assigned [facility] 06-13-2019 influenza, injectabl e, quadrivalent, preservative free To Assigned [facility] 05-29-2018 influenza, injectabl e, quadrivalent, preservative free To Assigned [facility] 06-13-2017 influenza, injectabl e, quadrivalent, contains preservative To Assigned [facility] 06-10-2015 influenza, injectabl e, quadrivalent, preservative free To Assigned [facility] 06-12-2012 influenza, seasonal, injectable To A ssigned [facility] 05-03-2011 influenza, seasonal, injectable, preservative free To Assigned [facility] 06-15-2010 influenza, seasonal, injectable To A ssigned [facility] 07-07-2009 novel influenza-H1N1 -09, preservative-free, injectable To Assigned [facility] 05-11-2009 influenza, seasonal, injectable To A ssigned [facility] 06-15-2008 influenza, seasonal, injectable To A ssigned [facility] 06-11-2008 influenza virus vacc ine, whole virus To Assigned [facility] Payers Date Payer Category Payer Specific state progr [facility] (list/ local code) TB FUNDED 0000 [id number] 07-08-2020 Unknown [id number] 07-20-2017 Dental --Stand Alone DENTAL-MEDI CAID [id number] 07-20-2017 Medicaid [id number] 02-17-2013 Medicare [id number] 1.13.56.2.7 .[id number] 02-17-2013 Medicare FFS MEDICARE [id number] 1992 Unknown [id number] 2.16.840.1.018962.3.579.2. 727 1992 Unknown [id number] 2.16.840.1.022855.3.579.2. 727 1992 Unknown [id number] 2.16.840.1.216418.3.579.2. 1259 1992 Unknown [id number] 2.16.840.1.189694.3.579.2. 1259 1992 Unknown [id number] 2.16.840.1.112852.3.579.2. 1259 1992 Unknown [id number] 2.16.840.1.921212.3.579.2. 1259 1992 Unknown [id number] 2.16.840.1.523080.3.579.2. 1259 1992 Unknown [id number] 2.16.840.1.910501.3.579.2. 732 1992 Unknown [id number] 2.16.840.1.263395.3.579.2. 732 1992 Unknown [id number] 2.16.840.1.226892.3.579.2. 732 1992 Unknown [id number] 2.16.840.1.868647.3.579.2. 732 08-20-1957 Medicaid [id number] 08-20-1957 Medicare [id number] Unknown [id number] 2.16.840.1.595727.3.579.2. 593 Unknown [id number] 2.16.840.1.572449.3.579.2. 593 Unknown [id number] 2.16.840.1.773444.3.579.2. 593 Unknown [id number] 2.16.840.1.870910.3.579.2. 593 Unknown [id number] 2.16.840.1.511759.3.579.2. 593 Unknown [id number] 2.16.840.1.803140.3.579.2. 593 Unknown [id number] 2.16.840.1.137112.3.579.2. 593 Unknown [id number] 2.16.840.1.126621.3.579.2. 593 Specific state progr ams (list/ local code) TB FUNDED [id number] Social History Date Type Detail Facility Start: 07-08-2019 End: 12-11-2023 Tobacco smoking status NHIS Never smoked tobacco [facility] Start: 07-08-2019 End: 12-11-2023 Tobacco use and exposure Smokeless tobacco non-user [facility] Start: 02-04-2021 End: 12-31-2023 Alcohol intake Lifetime non-drinker (finding) [facility] Start: 07-13-2020 History SDOH Alcohol Frequency 1 [facility] Start: 1990 Sex Assigned At Not on file [facility] Start: 05-04-2022 End: 12-19-2023 Tobacco smoking status NHIS Tobacco smoking consumption unknown [facility] Start: 04-24-2022 End: 05-04-2022 Exposure to SARS-CoV-2 (event) Not sure [facility] Start: 06-22-2023 End: 10-29-2023 Gender identity Not on file [facility] Tobacco smoking status No Smokin g Status Entered [facility] Start: 06-22-2023 End: 10-29-2023 History of Social function [facility] Work Phone: Has the [employer], or [employer] threatened to shut off services in your home in past 12Mo Patient unable to answer [facility] Work Phone: How often to you hav e a drink containing alcohol? Never [facility] Work Phone: Start: 07-20-2017 Sex Male (finding) [facility] Clinical Notes 03-29-2022 to 12-16-2024 Telephone [...] date (10 year lookback): Not Found [facility] 12-16-2024 Telephone encounter Note Outreach Team ([phone]) Contact Details: I did not contact. Pt [...] Smear date (10 year lookback): Not Found [facility] 12-16-2024 Miscellaneous Notes Outreach Team ([phone]) Contact Details: I did not contact. Pt [...] lookback): Not Found documented in this encounter [facility] 12-02-2024 History of Present illness Narrative Subjective [...] CT scan of the brain 11/03/23 at [facility] that revealed volume loss, especially in the [...] or worsening symptoms. documented in this encounter [facility] 05-21-2024 History of Present illness Narrative Subjective [...] CT scan of the brain 11/03/23 at [facility] that revealed volume loss, especially in the [...] in 6 months documented in this encounter [facility] 02-13-2024 Evaluation + Plan note Diagnostic Tests PendingKeppra Lvl 02/13/24Lamotrigine Level 02/13/24 [facility] 01-11-2024 Telephone encounter Note Jessica from [facility] [phone] is caller. She states was originally told [...] needs at present time. Cris Dinh, RN [facility] 01-11-2024 Miscellaneous Notes Jessica from [facility] [phone] is caller. She states was originally told [...] Cris Dinh, RN documented in this encounter [facility] 12-28-2023 Hospital Discharge instructions Benjamín Guo - 12/28/2023 2:17 PM EDT PERIOPERATIVE DISCHARGE/HOME-GOING INSTRUCTIONS ANESTHESIA - GENERAL (ADULT) If a problem arises, you may contact your physician by calling [phone] and asking for the resident alarm security or surveillance monitor for Dental service. Special Care Needs: Activity: [...] sent through Care Everywhere.Tooth Extraction Discharge Instructions (Latvian)documented in this encounter [facility] 12-28-2023 History and physical note Surgical Attestation: [...] possible Mari Traore DMD 12/28/2023 10:09 AM [facility] Work Phone: 12-28-2023 Note Surgical Attestation : [...] Mari Traore DMD 12/28/2023 10:09 AM [facility] 12-28-2023 History and physical note Surgical [...] 12/28/2023 10:09 AM documented in this encounter [facility] 12-28-2023 Miscellaneous Notes Brief Operative Note PHE OR 3 Johnny Devine 33 year old male Surgical Contact Serial Number: [id number] Preoperative Diagnosis: Pre-op Diagnosis * Caries [K02.9] Moderate intellectual disability [F79] Postoperative Diagnosis: Moderate intellectual disability [F79] Procedures: Comprehensive exam [74714] Full mouth X-ray [ 89721] Extractions [34808] Restorations [45366] Prophy 81047] Fluoride treatment [30273] Surgeon(s): Surgeon(s): Mari Traore DMD Staff: Patient Portal Concierge Nurse: Henrietta Johnson Anesthesia: General Anesthesia Staff: [...] disability[F79] @ENCORD@ Surgeon: Dr. Mari Traore DMD Brake Lining Driller Surgeon: Reema Whiting DDS Anesthesia: General- Nasal [...] 4 mg/0.1 mL nasal liquid Use 1 [place] in one nostril (alternate sides) as needed [...] were discussed with the patient and/or legal dental sales representative. The risks, benefits and alternatives were reviewed. Questions regarding blood transfusions were answered. The patient /or the patient s legal dental sales representative agree with the plan for transfusion of blood and/or blood components. documented in this encounter [facility] 12-28-2023 Surgery Postoperative evaluation and management note Brief Operative Note PHE OR 3 Johnny Devine 33 year old male Surgical Contact Serial Number: [id number] Preoperative Diagnosis: Pre-op Diagnosis * Caries [K02.9] Moderate intellectual disability [F79] Postoperative Diagnosis: Moderate intellectual disability [F79] Procedures: Comprehensive exam [94387] Full mouth X-ray [ 03543] Extractions [44081] Restorations [33033] Prophy 20306] Fluoride treatment [93617] Surgeon(s): Surgeon(s): Mari Traore DMD Staff: Patient Portal Concierge Nurse: Henrietta Johnson Anesthesia: General Anesthesia Staff: [...] by Reema Whiting DDS 12/28/2023 1;48 pm [facility] 12-28-2023 Surgery Surgical operation note Surgical Case Number Data Unavailable Operating Room Data Unavailable Preoperative Diagnosis(es): Pre-op Diagnosis * Caries [K02.9] Moderate intellectual disability [F79] Postoperative Diagnosis(es): Moderate intellectual disability[F79] @ENCORD@ Surgeon: Dr. Mari Traore DMD Brake Lining Driller Surgeon: Reema Whiting DDS Anesthesia: General- Nasal [...] 4 mg/0.1 mL nasal liquid Use 1 [place] in one nostril (alternate sides) as needed [...] procedure. Reema Whiting DDS 12/28/2023 1:53 pm [facility] 12-28-2023 Progress note Formatting of t his note is different from the original. Blood Attestation: ATTESTATION OF INFORMED CONSENT FOR BLOOD: The transfusion of blood and/or blood components were discussed with the patient and/or legal dental sales representative. The risks, benefits and alternatives were reviewed. Questions regarding blood transfusions were answered. The patient /or the patient s legal dental sales representative agree with the plan for transfusion of blood and/or blood components. [facility] 12-28-2023 History of Present illness Narrative Patient takes his seizure medication with pudding, facility held them today for dental surgery. Caregiver brought capsules with them to pre-op. Per Dr. Saldivar, divalproex 125 mg x 4 capsules (500 mg) were opened and sprinkles given to patient with 50 mL of water in pre-op. 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 MB cusp tip was visualized upon extraction of #17, but well encased in bone and would not be exposed to the oral cavity following healing of the extraction site. Preoperative Diagnosis(es): Pre-op Diagnosis * Caries [K02.9] Moderate intellectual disability [F79] Postoperative Diagnosis(es): Moderate intellectual disability[F79] Surgeon: Dr. Mari Traore DMD Brake Lining Driller Surgeon: Reema Whiting DDS Anesthesia: General- Nasal [...] of surgery: Stable documented in this encounter [facility] 12-21-2023 Evaluation note Addendum 12/21/2023- Caregiver @ [place] facility called to relay that patient unable [...] Kiko VASQUEZ RN updated nursing staff @ [place]. [facility] 12-21-2023 Miscellaneous Notes Addendum 12/21/2023- Caregiver @ [place] facility called to relay that patient unable [...] Kiko VASQUEZ RN updated nursing staff @ [place]. Patient was identified by name and date of . Jaswinder Arredondo Patient at risk for falls:No Falls Risk protocol implemented: N/A documented in this encounter [facility] 12-19-2023 Instructions Ling Coffman APRN-CATTLE BROKER - 12/19/2023 11:26 AM EDT On the [...] for pain. Please hold all Vitamin E, [place] 3, fish oil and herbal supplements for 1 week prior to surgery. Please use this LIST to prepare for your surgery/procedure: ? Assume that any lab or testing done during your Pre-admission testing appointment is within normal limits unless otherwise contacted. ? Expect a call from [facility] one business day prior to surgery for [...] your Preparing for Your Surgery/Procedure booklet or [email or web address] if you have questions. Contact the Pre-Admission Testing department at [phone] or your surgeon's office with any questions [...] Metal jewelry could cause constriction, amputation, or soas. Loose or bulky things in your mouth [...] stay with you after surgery. Please call [facility] [employer] if you need transportation assistance or have concerns about going home [phone]. ? SLEEP APNEA PATIENTS: Bring your sleep apnea machine and mask. ? PLEASE BE ON TIME. A late arrival may result in the cancellation/ delay of your surgery. Thank you for choosing [facility]; it is our pleasure to care for you documented in this encounter [facility] 12-19-2023 Instructions Shanna Sauceda RN - 12/19/2023 11:26 AM EDT [place] staff: Since patient is unable to take [...] for pain. Please hold all Vitamin E, [place] 3, fish oil and herbal supplements for 1 week prior to surgery. Please use this LIST to prepare for your surgery/procedure: ? Assume that any lab or testing done during your Pre-admission testing appointment is within normal limits unless otherwise contacted. ? Expect a call from [facility] one business day prior to surgery for [...] your Preparing for Your Surgery/Procedure booklet or [email or web address] if you have questions. Contact the Pre-Admission Testing department at [phone] or your surgeon's office with any questions [...] stay with you after surgery. Please call [facility] if you need transportation assistance or have concerns about going home [phone]. ? SLEEP APNEA PATIENTS: Bring your sleep apnea machine and mask. ? PLEASE BE ON TIME. A late arrival may result in the cancellation/ delay of your surgery. Thank you for choosing [facility]; it is our pleasure to care for you documented in this encounter [facility] 12-19-2023 Evaluation note Patient was identified by name and date of . Jaswinder Arredondo Patient at risk for falls:No Falls Risk protocol implemented: N/A [facility] 12-19-2023 Miscellaneous Notes Patient was identified by name and date of . Jaswinder Arredondo Patient at risk for falls:No Falls Risk protocol implemented: N/A documented in this encounter [facility] 12-19-2023 History of Present illness Narrative Images from the original note were not included. Pre-Admission Testing Consultation Johnny Devine, [id number] 33 year old Male 12/19/2023 Consult placed to [facility] by Mari Traore, due to significant PMH of Hypothyroidism , Bipolar, Autistic disorder ,Epilepsy [facility] Triage Risk Score Total Score: 3 1 [...] intervention warranted . Patient with [facility] during this appointment Patient is here for pre-admission optimization and education prior to surgery. RECENT ILLNESS: Serious illness or hospitalization within the last six months. Yes 10/28/2023 HOSPITAL COURSE: Johnny Devine is a 33 year old male with developmental delay and no PSH who presents as a transfer to [facility] from [facility] for further management of small bowel obstruction. Given patient's baseline cognitive status, NGT difficult to maintain. He was admitted to the [facility] under care of general surgery and was taken to the OR the following morning for diagnostic laparoscopy. Intra-operative findings demonstrated no adhesins, no apparent hernias, dilated small/large bowel, redundant sigmoid c/f volvulus, easily reduced. After recovering in the PACU, he was taken to the [facility] with NGT in place. Patient arrived to [facility] with 8 Fr pediatric haskins catheter [...] DENTAL RESTORATIONS; Surgeon: Harpreet Mccurdy DDS; Location: [facility]; Service: Dental Past Medical History [...] MG CSDR capsule LABORATORY DATA: CBC @ [facility] 11/07/2023 CBC Order: [id number] Component Ref Range & Units 1 mo [...] 0418 [id number] 91 Comment: The [place] Diabetes Association (ADA) provides guidance for cutoff [...] Standards of Medical Care in Diabetes 2016, [place] Diabetes Association. Diabetes Care. 2016.39(Suppl 1). 8 0.70 8.2 11/06/23 0943 146 112 18 83 Comment: The [place] Diabetes Association (ADA) provides guidance for cutoff [...] Standards of Medical Care in Diabetes 2016, [place] Diabetes [employer]. Diabetes Care. 2016.39(Suppl 1). 6 0.69 8.9 11/05/23 0418 142 112 23 96 Comment: The [place] Diabetes Association (ADA) provides guidance for cutoff [...] Standards of Medical Care in Diabetes 2016, [place] Diabetes [employer]. Diabetes Care. 2016.39(Suppl 1). 5 0.64 7.6 11/04/23 0826 145 112 24 79 Comment: The [place] Diabetes Association (ADA) provides guidance for cutoff [...] Standards of Medical Care in Diabetes 2016, [place] Diabetes [employer]. Diabetes Care. 2016.39(Suppl 1). 4 0.70 7.7 TESTS REVIEWED: I personally reviewed and interpreting and findings were: CXRay: Chest x-ray was last done on 10/31/2023 EK10/31/2023 @ [facility] NORMAL SINUS RHYTHM ANTEROLATERAL T WAVE ABNORMALITY [...] 1:39 PM 12/19/2023 documented in this encounter [facility] 12-19-2023 History of Present illness Narrative Images from the original note were not included. Pre-Admission Testing Consultation Johnny Devine, [id number] 33 year old Male 12/19/2023 Consult placed to [facility] by Mari Traore, due to significant PMH of Hypothyroidism , Bipolar, Autistic disorder ,Epilepsy [facility] Triage Risk Score Total Score: 3 1 [...] intervention warranted . Patient with Lama[facility] from [facility] facility during this appointment Patient is here for pre-admission optimization and education prior to surgery. RECENT ILLNESS: Serious illness or hospitalization within the last six months. Yes 10/28/2023 HOSPITAL COURSE: Johnny Devine is a 33 year old male with developmental delay and no PSH who presents as a transfer to [facility] from [facility] ED for further management of small bowel obstruction. Given patient's baseline cognitive status, NGT difficult to maintain. He was admitted to the [facility] under care of general surgery and was taken to the OR the following morning for diagnostic laparoscopy. Intra-operative findings demonstrated no adhesins, no apparent hernias, dilated small/large bowel, redundant sigmoid c/f volvulus, easily reduced. After recovering in the PACU, he was taken to the [facility] with NGT in place. Patient arrived to [facility] with 8 Fr pediatric haskins catheter [...] DENTAL RESTORATIONS; Surgeon: Harpreet Mccurdy DDS; Location: [facility]; Service: Dental Past Medical History [...] DATA: CBC @ [facility] 11/07/2023 CBC Order: [id number] Component Ref Range & Units 1 mo [...] 0418 [id number] 21 91 Comment: The [place] Diabetes Association (ADA) provides guidance for cutoff [...] Standards of Medical Care in Diabetes 2016, [place] Diabetes [employer]. Diabetes Care. 2016.39(Suppl 1). 8 0.70 8.2 11/06/23 0943 146 112 18 83 Comment: The [place] Diabetes Association (ADA) provides guidance for cutoff [...] Standards of Medical Care in Diabetes 2016, [place] Diabetes [employer]. Diabetes Care. 2016.39(Suppl 1). 6 0.69 8.9 11/05/23 0418 142 112 23 96 Comment: The [place] Diabetes Association (ADA) provides guidance for cutoff [...] Standards of Medical Care in Diabetes 2016, [place] Diabetes [employer]. Diabetes Care. 2016.39(Suppl 1). 5 0.64 7.6 11/04/23 0826 145 112 24 79 Comment: The [place] Diabetes Association (ADA) provides guidance for cutoff [...] Standards of Medical Care in Diabetes 2016, [place] Diabetes [employer]. Diabetes Care. 2016.39(Suppl 1). 4 0.70 7.7 TESTS REVIEWED: I personally reviewed and interpreting and findings were: CXRay: Chest x-ray was last done on 10/31/2023 EK10/31/2023 @ [facility] NORMAL SINUS RHYTHM ANTEROLATERAL T WAVE ABNORMALITY [...] 1:39 PM 12/19/2023 documented in this encounter [facility] 12-19-2023 Note Pre-Admission Testin g Consultation Johnny Devine, [id number] 33 year old Male 12/19/2023 Consult placed [...] intervention warranted . Patient with Lama[facility] from [facility] facility during this appointment Patient is here for pre-admission optimization and education prior to surgery. RECENT ILLNESS: Serious illness or hospitalization within the last six months. Yes 10/28/2023 HOSPITAL COURSE: Johnny Devine is a 33 year old male with developmental delay and no PSH who presents as a transfer to [facility] from [facility] for further management of small bowel obstruction. Given patient's baseline cognitive status, NGT difficult to maintain. He was admitted to the [facility] under care of general surgery and was taken to the OR the following morning for diagnostic laparoscopy. Intra-operative findings demonstrated no adhesins, no apparent hernias, dilated small/large bowel, redundant sigmoid c/f volvulus, easily reduced. After recovering in the PACU, he was taken to the [facility] with NGT in place. Patient arrived to [facility] with 8 Fr pediatric haskins catheter [...] SERVICES; Ser (more content not included)... [facility] 12-03-2023 Note HNO ID: [id number] Author: OSCAR RUIZ MD Service: ? Author [...] from ongoing urologic care. Oscar Ruiz MD [facility] 12-03-2023 Note Patient Outreach ([facility] OLMN) JOHNNY DEVINE ([id number]) 1990 M Date Time Provider Department 12/03/23 RAFAEL GIRALDO During your visit today, we recorded the following information about you: Allergies As of Date: 12/03/2023 Noted Allergy Reaction BIAXIN (CLARITHROMYCIN) 05/04/2022 14 - Other: See Comments Comments: caregiver does not know Date Reviewed: 12/03/2023 Reviewed by: Sukhdeep Barton [facility] - Fully Assessed Visit Diagnosis:Screening for genitourinary condition [Z13.89] Order(s):URINALYSIS, REFLEX MICROSCOPIC [[id number]] Order #: [id number] Prescriptions as of 12/06/2023 - cloNIDine HCl [...] Encounter Status:Closed by TETE KRAMERUSER on 12/06/23 [facility] 12-03-2023 History of Present illness [...] Oscar Ruiz MD documented in this encounter [facility] 11-28-2023 Note HNO ID: [id number] Author: VICTORIA SANCHEZ APRN.VÍCTOR Service: ? Author Type: Nurse Practitioner Type: Progress Notes Filed: 11/28/2023 10:19 Note Text: [facility] Clinic Date: November 28, 2023 Johnny Devine 33 year old male CHIEF COMPLAINT: Patient presents for follow up from surgery. HPI: Here for follow up after diagnostic laparotomy on 10/29/[address] Beffa. Patient also underwent a dorsal slit procedure with urology on 10/30/2023 for paraphimosis. Patient with a mosaic worker today to discuss his postoperative course since [...] for further surgery discussion Victoria Sanchez, MSN, POLE LIFT OPERATOR-CATTLE BROKER November 28, 2023 [facility] 11-28-2023 History of Present illness Narrative [facility] Clinic Date: November 28, 2023 Johnny Devine 33 year old male CHIEF COMPLAINT: Patient presents for follow up from surgery. HPI: Here for follow up after diagnostic laparotomy on 10/29/[address] Robin. Patient also underwent a dorsal slit procedure with urology on 10/30/2023 for paraphimosis. Patient with a mosaic worker today to discuss his postoperative course since [...] for further surgery discussion Victoria Sanchez, MSN, POLE LIFT OPERATOR-CATTLE BROKER November 28, 2023 documented in this encounter [facility] 11-28-2023 Nurse Note What is the reason for your visit today? Post op Who is your referring physician? Dr. Sanchez Are you having poor oral intake? NO Have you had unintentional weight loss of 15 lbs/7 Kg in the last 3-6 months? NO Bowels: regular Wound: clean & dry Temperature: No Drains: No documented in this encounter [facility] 11-12-2023 Miscellaneous Notes [facility] care facility and spoke to Rosy. Patient [...] Cris Dinh, RN documented in this encounter [facility] 11-07-2023 Note HNO ID: [id number] Author: HERMAN SALOMON RN Service: Care Management Author Type: Registered Nurse Type: Care Mgt Progress Note Filed: 11/07/2023 14:56 Note Text: CARE MANAGEMENT DISCHARGE NOTE SERVICE DATE: November 07, 2023 SERVICE TIME: 2:56 PM Admission Date: 10/28/2023 LOS: 10 days Discharge Arrangement Discharge Arrangement: [facility] Services Arranged Medical Services: Other: See Comment (no services indicated) Caregiver Assessment Caregiver is ready, willing and able to meet the patient's needs as recommended by the inter-professional team: Yes Name of Caregiver: [place] [facility] [facility] Transportation Arrangements Transportation Arrangements: Car Destination: [facility] Additional Information: Patient d/c ready to [facility] with no skilled needs identified. Patient and bedside RN aware of plan. senior living to transport patient home via private auto. SIGNATURE: Herman Salomon RN PATIENT NAME: Johnny Devine DATE: November 07, 2023 TIME: 2:55 PM CONTACT #: [phone] [facility] 11-07-2023 Note HNO ID: [id number] Author: GIA MULLER MD Service: General Surgery [...] * DORSAL SLIT FORESKIN EXCEPT - General [facility] 11-07-2023 Note HNO ID: [id number] Author: MAYANK READ, MIRIAM Service: Nursing Author Type: Registered Nurse Type: Nursing Progress Note Filed: 11/07/2023 09:25 Note Text: Paged primary team of low BP. [facility] 11-06-2023 Note HNO ID: [id number] Author: ALEXANDRA CHAIREZ MD Service: General Surgery [...] Chairez MD General Surgery Resident Екатерина(Jacob No): [phone] Grundfest(Boy Alcaraz Petro): [phone] After 6PM + Weekends: [phone] INTERVAL EVENTS / PERTINENT REVIEW OF SYSTEMS: [...] * DORSAL SLIT FORESKIN EXCEPT - General [facility] 11-06-2023 Note HNO ID: [id number] Author: BERNARDA SUE MD Service: Neurology General [...] DATE: November 06, 2023 TIME: 12:26 AM [facility] 11-05-2023 Note HNO ID: [id number] Author: LEEANN TELLES MD Service: General Surgery [...] as appropriate, non-distended Leeann Telles MD PGY1 [facility] 11-05-2023 Note HNO ID: [id number] Author: JUAQUIN KRISHNAMURTHY RN Service: Nursing Author [...] to bedside, Valium ordered at this time. [facility] 11-05-2023 Note HNO ID: [id number] Author: HERMAN SALOMON RN Service: Care Management Author Type: Registered Nurse Type: Care Mgt Progress Note Filed: 11/05/2023 11:21 Note Text: CARE MANAGEMENT PROGRESS NOTE SERVICE DATE: 11/05/2023 SERVICE TIME: 11:20 AM LOS: 8 days [place] Explained: [place] Given: No Reason Not Given: No placements necessary Anticipated # of Days Until Discharge: 4 Needs Prior to Discharge: Needs Prior to Discharge: To Be Determined Post-Acute Discharge Plan: Patient from [facility]. Plan is to return at discharge. mail carriers supervisor is Magi [phone]. Per Magi, she will provide transport at discharge. Magi is requesting an abdominal binder at discharge due to patient's history of self-injurious behavior. 33 year old male POD #7 diagnostic laparoscopy. Patient is non-verbal, developmental delay and lives in fdc. No skilled needs anticipated. SIGNATURE: Herman Salomon RN PATIENT NAME: Johnny Devine DATE: November 05, 2023 TIME: 11:19 AM PAGER/CONTACT #: [phone] [facility] 11-05-2023 Note HNO ID: [id number] Author: CONNIE CAICEDO MD Service: Neurology General [...] Dr. Almanzar. Connie Caicedo MD 5:49 PM [facility] 11-05-2023 Note HNO ID: [id number] Author: ALEXANDRA CHAIREZ MD Service: General Surgery [...] Chairez MD General Surgery Resident Екатерина(Jacob No): [phone] Grundfest(Kieran, Boy, Misti): [phone] After 6PM + Weekends: [phone] INTERVAL EVENTS / PERTINENT REVIEW OF SYSTEMS: [...] * DORSAL SLIT FORESKIN EXCEPT - General [facility] 11-04-2023 Note HNO ID: [id number] Author: ALEXANDRA CHAIREZ MD Service: General Surgery [...] Neuro: continue lorazepam TID per neurology(clarified with [facility] and patient has been getting scheduled lorazepam [...] Chairez MD General Surgery Resident Екатерина(Jacob No): [phone] Grundfest(Boy Alcaraz, Misti): [phone] After 6PM + Weekends: [phone] INTERVAL EVENTS / PERTINENT REVIEW OF SYSTEMS: [...] * DORSAL SLIT FORESKIN EXCEPT - General [facility] 11-03-2023 Note HNO ID: [id number] Author: ZAIRA ROBERT MD Service: General Surgery [...] (Res) November 03, 2023, 10:29 AM P: [phone] INTERVAL EVENTS / PERTINENT REVIEW OF SYSTEMS: [...] * DORSAL SLIT FORESKIN EXCEPT - General [facility] 11-03-2023 Note HNO ID: [id number] Author: LYLE TRINIDAD RN Service: ? Author Type: Registered Nurse Type: Progress Notes Filed: 11/03/2023 22:32 Note Text: This adjusto writer operator was called by another nurse that pt had a witnessed 20 seconds of seizure episode. AMET called and team notified and orders given. [facility] 11-02-2023 Note HNO ID: [id number] Author: LEEANN TELLES MD Service: General Surgery [...] as appropriate, non-distended Leeann Telles MD PGY1 [facility] 11-02-2023 Note HNO ID: [id number] Author: HERMAN SALOMON, MIRIAM Service: Care Management Author Type: Registered Nurse Type: Care Mgt Progress Note Filed: 11/02/2023 11:43 Note Text: CARE MANAGEMENT WEEKEND PLANNING NOTE DISCHARGE OR POSSIBLE DISCHARGE Date/Time: TBD Disposition: [facility] Transport: Car /Magi Other Concerns: Patient from [facility]. Plan is to return at discharge. mail carriers supervisor is Magi [phone]. Per Magi, she will provide transport at discharge. She will need to be contacted if patient ready to discharge over the weekend. Magi is requesting an abdominal binder at discharge due to patient's history of self-injurious behavior. 33 year old male POD #4 diagnostic laparoscopy. Patient is non-verbal, developmental delay and lives in fdc. 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 SIGNATURE: Herman Salomon RN PATIENT NAME: Johnny Devine DATE: November 02, 2023 TIME: 11:42 AM PAGER/CONTACT #: [phone] [facility] 11-02-2023 Note HNO ID: [id number] Author: FRANCK MAGDALENO MD Service: General Surgery [...] Andrews MD Acute Care Surgery Resident PAGER [phone] INTERVAL EVENTS / PERTINENT REVIEW OF SYSTEMS: [...] * DORSAL SLIT FORESKIN EXCEPT - General [facility] 11-01-2023 Note HNO ID: [id number] Author: ANA LUISA FARR MD Service: General [...] , appreciate Recs (below); haskins out at [facility], f/u TOV - Recommend applying vaseline PRN [...] Farr MD Acute Care Surgery Resident PAGER [phone] INTERVAL EVENTS / PERTINENT REVIEW OF SYSTEMS: [...] * DORSAL SLIT FORESKIN EXCEPT - General [facility] 10-31-2023 Note HNO ID: [id number] Author: ANA LUISA FARR MD Service: General [...] Farr MD Acute Care Surgery Resident PAGER [phone] INTERVAL EVENTS / PERTINENT REVIEW OF SYSTEMS: [...] Drain Duration Indwelling Urinary Catheter 10/30/23 0811 [facility] 10 Fr 1 day SURGERY/PROCEDURE: Procedure(s) and Anesthesia Type: * DORSAL SLIT FORESKIN EXCEPT - General [facility] 10-31-2023 Note HNO ID: [id number] Author: HEAVEN CAMACHO MD Service: Urology Author [...] clinical indicators: x Hypophosphatemia Other, please specify [facility] 10-31-2023 Note HNO ID: [id number] Author: BEATRIZ MEHTA MD Service: General Surgery [...] Mehta MD General Surgery Resident General Surgery: [phone] On nights (6 pm to 6 am) and on Weekends/Holidays, please page the on-call pager: [phone] 10/31/23 2:39 AM [facility] 10-31-2023 Note HNO ID: [id number] Author: JUAQUIN KRISHNAMURTHY RN Service: Nursing Author Type: Registered Nurse Type: Progress Notes Filed: 10/31/2023 01:48 Note Text: Messaged Night team Dr. Mehta about haskins drainage turning bloody. Patient is asleep and comfortable [facility] 10-30-2023 Note HNO ID: [id number] Author: JEREMIE JOAQUIN MD Service: ? Author [...] October 30, 2023 TIME: 8:11 AM CSN: [id number] [facility] 10-30-2023 Note HNO ID: [id number] Author: JEREMIE JOAQUIN MD Service: ? Author Type: Anesthesiologist Type: Anesthesia Procedure Notes Filed: 10/30/2023 11:59 Note Text: ANESTHESIOLOGY PROCEDURE NOTE Airway General Information Procedure Start Time/Medication Administration: 10/30/2023 7:46 AM Patient location during procedure: OR Timeout Performed Pre-procedure: timeout performed Consent Obtained: Yes Patient identity confirmed: arm band, care steam trap worker and patient Staffing Anesthesiologist: Jeremie Joaquin MD Performed by: SRNA and anesthesiologist Indications and Patient Condition Indications for airway management: anesthesia Preoxygenated: yes anesthesia circuit Patient position: sniffing Method: rapid sequence Cricoid Pressure: No Manual In-Line Stabilization: No Difficult Mask: No Final Airway Details Final airway type: endotracheal airway Final Endotracheal Airway: ETT Cuffed: yes Successful intubation technique: video laryngoscopy Devices used: [employer] Endotracheal tube insertion site: oral Blade size: [...] gastric contents in oropharynx. SIGNATURE: Nilay Zimmer APRN.ENGINEER GEOPHYSICAL LABORATORY PATIENT NAME: Johnny Devine DATE: October 30, 2023 TIME: 7:58 AM CSN: [id number] [facility] 10-30-2023 Note HNO ID: [id number] Author: FRANCK MAGDALENO MD Service: General Surgery [...] Andrews MD Acute Care Surgery Resident PAGER [phone] INTERVAL EVENTS / PERTINENT REVIEW OF SYSTEMS: [...] <1 day Indwelling Urinary Catheter 10/30/23 0130 [facility] 8 Fr <1 day SURGERY/PROCEDURE: Procedure(s) and Anesthesia Type: * DORSAL SLIT FORESKIN EXCEPT - General [facility] 10-29-2023 Note HNO ID: [id number] Author: HERMAN SALOMON RN Service: Care Management [...] by: Per Department Practice Potential Transition Plans [facility]/Supervised Living Advance Directives Current Advance Directive: Other Document: See Comment (Legal guardian) In Chart: Yes Up To Date and Valid: Yes Current Living Arrangements and Support Lives with: Other person(s) [facility] Type of Residence: [facility] Care Facility Name: [facility] Support: Home care staff, Family members How do you manage to accomplish the following: Independent: Ambulation Dependent: Bathe/Shower;Dress;Meals/Meal Prep;Going to the bathroom;Medication Management;Transportation to appointments/community Current Services/Equipment Current Post-Acute Service(s): None [place] Explained: [place] Given: No Reason Not Given: No placements necessary Are you interested in bedside delivery of your medications? No Discharge Planning Participant(s): Other person(s);Guardian Name/Relationship: Magi/School Secretary Patient/Family Comments: Caregiver Assessment: Caregiver is ready, willing and able to meet the patient's needs as recommended by the inter-professional team: Yes Name of Caregiver: [facility] Transport at Discharge: Transportation Arrangements: Car [...] return to fdc at discharge. Per Magi [phone] ext. [phone], she will provide transport. Magi is requesting an abdominal binder at discharge due to patient's history of self-injurious behavior. CM will continue to follow for transitional care needs. SIGNATURE: Herman Salomon RN PATIENT NAME: Johnny Devine DATE: October 29, 2023 TIME: 4:00 PM CONTACT #: [phone] [facility] 10-29-2023 Note HNO ID: [id number] Author: KENZIE MORE APRN.ENGINEER GEOPHYSICAL LABORATORY Service: ? Author Type: Nurse Crew Dispatcher Type: Anesthesia Procedure Notes Filed: 10/29/2023 10:18 Note Text: ANESTHESIOLOGY PROCEDURE NOTE Airway General Information Procedure Start Time/Medication Administration: 10/29/2023 10:00 AM Patient location during procedure: OR Timeout Performed Pre-procedure: timeout performed Consent Obtained: Yes Patient identity confirmed: arm band, care steam trap worker and family Staffing ENGINEER GEOPHYSICAL LABORATORY: Kenzie More APRN.ENGINEER GEOPHYSICAL LABORATORY Indications and Patient Condition Indications for airway management: anesthesia Preoxygenated: yes anesthesia circuit Method: rapid sequence Difficult Mask: No Final Airway Details Final airway type: endotracheal airway Final Endotracheal Airway: ETT Cuffed: yes Successful intubation technique: video laryngoscopy Devices used: [employer] Endotracheal tube insertion site: oral Blade: Raj Blade size: #4 ETT size (mm): 7.5 Placement verified by: capnometry Cormack-Lehane Classification: grade I - full view of glottis Number of attempts at approach: 1 Failed airway: no Unrecognized esophageal intubation: no Airway not difficult SIGNATURE: Kenzie More APRN.ENGINEER GEOPHYSICAL LABORATORY PATIENT NAME: Johnny Devine DATE: October 29, 2023 TIME: 10:17 AM CSN: [id number] [facility] 10-29-2023 Note HNO ID: [id number] Author: ANA LUISA FARR MD Service: General [...] Farr MD Acute Care Surgery Resident PAGER [phone] INTERVAL EVENTS / PERTINENT REVIEW OF SYSTEMS: [...] Anesthesia Type: * EXPLORATORY LAPAROTOMY - General [facility] 10-28-2023 History of Past i llness Narrative Problem Noted Date Diagnosed Date Resolved Date SBO (small bowel obstruction) 10/28/2023 10/31/2023 documented as of this encounter (statuses as of 11/12/2023) [facility] History of Past illness Narrative* Problem Noted Date Diagnosed Date Resolved Date SBO (small bowel obstruction) 10/28/2023 10/31/2023 documented as of this encounter (statuses as of 11/29/2023) [facility] History of Past illness Narrative* Problem Noted Date Diagnosed Date Resolved Date SBO (small bowel obstruction) 10/28/2023 10/31/2023 documented as of this encounter (statuses as of 12/04/2023) [facility] History of Past illness Narrative* Problem Noted Date Diagnosed Date Resolved Date SBO (small bowel obstruction) 10/28/2023 10/31/2023 documented as of this encounter (statuses as of 12/06/2023) [facility]11-27-2023 Hospital Discharge instructions* Discharge Instructions* Yobany [...] be sent through Care Everywhere. * Bradycardia (Latvian) documented in this [id number] Emergency department Note* Leila Cifuentes RN - 07/16/2023 8:01 AM EST Permission treat given from Cate legal guardian [id number] Emergency department Note* Leila Cifuentes RN - 07/16/2023 8:01 AM EST Permission treat given from Cate legal guardian documented in this [id number] Evaluation + Plan note Diagnostic Tests Pending * Branch Level 07/04/23 [facility]11-07-2023 Telephone encounter Note* Telephone Encounter - Shanna Sauceda RN - 06/26/2023 11:14 AM EST Informed Consent for dental surgery & Anesthesia consent obtained and scanned into [employer]. Scheduled for surgery 07/16/2023. [id number] Miscellaneous Notes* Telephone Encounter - Shanna Sauceda RN - 06/26/2023 11:14 AM EST Informed Consent for dental surgery & Anesthesia consent obtained and scanned into EPIC. Scheduled for surgery 07/16/2023. documented in this [id number] Evaluation note* PSE Appt H&P - Lacey Wilson MD - 06/22/2023 3:10 PM EDT Presurgical Evaluation (Pre-Admission Testing) Consultation Johnny Devine, [id number] 32 year old Male 06/22/2023 Consult placed [...] DENTAL RESTORATIONS; Surgeon: Harpreet Mccurdy DDS; Location: [facility]; Service: Dental ANESTHESIA REVIEW OF [...] - referring and communicating with other health insurance healthcare consultant (when not separately reported) - documenting clinical information in the electronic or other health record - independently interpreting results (not separately reported) and communicating results to the patient/family/caregiver - care coordination (not separately reported). Interviewer signature: Lacey Wilson MD 3:10 PM 06/22/2023 [id number] Miscellaneous Notes* PSE Appt H&P - Lacey Wilson MD - 06/22/2023 3:10 PM EDT Presurgical Evaluation (Pre-Admission Testing) Consultation Johnny Devine, [id number] 32 year old Male 06/22/2023 Consult placed [...] DENTAL RESTORATIONS; Surgeon: Harpreet Mccurdy DDS; Location: [facility]; Service: Dental ANESTHESIA REVIEW OF [...] - referring and communicating with other health insurance healthcare consultant (when not separately reported) - documenting clinical information in the electronic or other health record - independently interpreting results (not separately reported) and communicating results to the patient/family/caregiver - care coordination (not separately reported). Interviewer signature: Lacey Wilson MD 3:10 PM 06/22/2023 documented in this [id number] Miscellaneous Notes* Telephone Encounter - [place] [facility] [place] 05/18/2022 3:18 PM EDT Cate, aunt, was leaving Dr Morales a message: At this time, the family would like to hold off on cataract surgery. Fyi * Telephone Encounter - Grupo Morales MD - 05/18/2022 2:23 PM EDT Called today and yesterday after clinic to discuss. No answer, left msg to call back and leave a message. * Telephone Encounter - [facility] [facility] - 05/17/2022 3:31 PM EDT Pt's aunt returning a call to Dr. Morales to discuss eye care for Johnny. Please try to reach her again at [phone] (Cate Tin) [facility] Miscellaneous Notes* Telephone Encounter - [facility] - 05/08/2022 9:01 AM EDT Nurse from [facility] where he resides called for [facility] for his file. Attn: Melanie Pickard [phone]. Surgery schedulers name and # was provided. documented [facility] Miscellaneous Notes* Telephone Encounter - Grupo [...] week. Grupo Morales MD documented in [facility] History of Present illness Narrative* Angel [...] 04, 2022 10:56 AM documented in [facility] Telephone encounter Note * Telephone Encounter - Jose Miguel Jones - 03/29/2022 1:12 PM EDT Care Gaps Scheduling Contact Details: I did not contact pt. Encounter 07/15/21 indicates pt does not see providers at [facility] at this time. Health Maintenance Due: Medicare AWV / PCP Visit: Due Eye Exam: Not due Foot Exam: Not due Annual Blood Work: Due Mammogram: N/A FIT: Not due [id number] Miscellaneous Notes* Telephone Encounter - Jose Miguel Joens - 03/29/2022 1:12 PM EDT Care Gaps Scheduling Contact Details: I did not contact pt. Encounter 07/15/21 indicates pt does not see providers at [facility] at this time. 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 Other and combined forms of senile cataract [facility] Diagnosis Caries- Primary Unspecified dental [...] prepuce and phimosis [facility] Diagnosis Screening for genitourinary condition Screening for other and unspecified genitourinary condition [facility] Diagnosis Caries- Primary Unspecified dental caries Pre-op testing- Primary Preoperative examination, unspecified Body mass index (BMI) 31.0-31.9, adult Caries Unspecified dental caries [facility]* Diagnosis Sigmoid volvulus (HCC)- Primary Volvulus [facility] Diagnosis Caries- Primary Unspecified dental caries Pre-op testing- Primary Preoperative examination, unspecified Body mass index (BMI) 31.0-31.9, adult Caries Unspecified dental caries [facility] Caries- Primary Unspecified dental caries [facility] [place] [facility]* Diagnosis Alteration of awareness- Primary [facility] [place] [facility]* Diagnosis Caries- Primary Unspecified dental caries documented [facility] this [facility] Work Phone: Evaluation note* Diagnosis Alteration of awareness- Primary [facility] N[facility] No data available [facility] No data available for this section [facility] No data available for this section [facility] Summary Purpose Family History No Family [...] Diagnoses Caries Tio-Harpreet England, DDS [address] [place] [address] [facility] PRE SURGICAL EVAL [address] [place] [address] Referral ID Status Reason Start Date Expiration Date V isits Requested Visits Authorized [id number] Pending Review 05/25/2023 05/25/2024 1 1 Scheduling Instructions Your surgical team will reach out to you to schedule a preadmission testing appointment. Question Answer Reason for consult? Recommended PSE Risk Score Specialty Diagnoses / Procedures Referred By Contmigdalia t Referred To Contact Radiology Diagnoses Pre-op exam Procedures XR CHEST PA+LAT 2 VIEWS Franc Beyer MD [address] [place] [address] [facility] DIAGNOSTIC RADIOLOGY [address] [place], [place] [phone] Referral ID Status Reason Start Date Expiration Date Visits Re quested Visits Authorized [id number] Closed 06/22/2023 06/21/2024 1 1 Specialty Diagnoses / Procedures Referred By Contac t Referred To Contact Cardiology Diagnoses Bradycardia History of autism Nonverbal Moderate intellectual disability Yobany Smith PA-C [address] [place] [address] [facility] C[facility] HV [address] [place] [address] Referral ID Status Reason Start Date Expiration Date V isits Requested Visits Authorized [id number] Pending Review 07/16/2023 07/16/2024 3 3 Scheduling Instructions Please call the [facility] at [phone] to schedule an appointment if one was not made for you today. Question Answer What is the primary reason for consult? Abnormal EKG [13] - nonverbal patient, asymptomatic bradycardia on lopressor At what location would you like the patient to be seen? [place] ([address]) Specialty Diagnoses / Procedures Referred By Contac t Referred To Contact Colon and Rectal Surgery Diagnoses Sigmoid volvulus (HCC) Procedures CONSULT TO COLO-RECTAL SURGERY OFFICE/OUTPATIENT [facility] 60 MINUTES Victoria Sanchez APRN.CATTLE BROKER [address] [place], [place] [phone] Juventino Fairbanks MD [address] [phone] Referral ID Status Reason Start Date Expiration Date Visits Requested Visits Authorized [id number] Authorized PCP Requested Referral 12/20/2023 12/19/2024 1 1 Specialty Diagnoses / Procedures Referred By Contac t Referred To Contact Anesthesiology Diagnoses Harpreet Anand DDS [address] [place] [phone] [facility] PRE ADMISSION TESTING [address] [place] [address] Referral ID Status Reason Start Date Expiration Date V isits Requested Visits Authorized [id number] Authorized 10/10/2023 10/10/2024 1 1 Scheduling Instructions [...] PA+LAT 2 VIEWS Franc Beyer MD [address] [place] [address] [facility] DIAGNOSTIC RADIOLOGY [address] [place] [address] Referral ID Status Reason Start Date Expiration Date Visits Re quested Visits Authorized [id number] Closed 06/22/2023 06/21/2024 1 1 Reason Onset Date Comments Pre-surgical Evaluation 06/26/2023 Informed Consent for dental surgery & Anesthesia consent obtained Reason Comments bradycardia Low HR (33) Specialty Diagnoses / Procedures Referred By Johan mcfadden Referred To Contact Ambulatory Surgery Diagnoses Caries Caries [[id number]] Procedures UNLISTED PROCEDURE, DENTOALVEOLAR STRUCTURES ANESTHESIA, INTRAORAL PROC, W/BX; NOS DENTAL RESTORATIONS Harpreet Mccurdy, DDS [address] [place] [address] [facility] [address] [place] [phone] Phone: [phone] Referral ID Status Reason Start Date Expiration Date Visits Re quested Visits Authorized [id number] 3 3 Reason Comments Mapping Specialist - Other Reason Comments Post Op Reason Onset Date Comments Pre-surgical Evaluation 12/25/2023 DD adult dental restorations 12/27 under [place] at [place]. PAT completed - consent request sent to main - see future encounter for results. PAT RN spoke to [facility], confirmed [facility], [place] address, and 0900 arrival time Reason Onset Date Comments Pre-surgical Evaluation 12/25/2023 Anesthes ia Attestaion for dental surgery scanned in mushroom growth media mixerhotel or motel manager Diagnoses / Procedures Referred By Johan mcfadden Referred To Contact Ambulatory Surgery Diagnoses Caries Caries [[id number]] Procedures UNLISTED PROCEDURE, DENTOALVEOLAR STRUCTURES ANESTHESIA, INTRAORAL PROC, W/BX; NOS DENTAL RESTORATIONS Mari Traore DMD [address] [place], [place] [id number] [facility] [address] [place] [phone] Phone: [phone] Referral ID Status Reason Start Date Expiration Date Visits Re quested Visits Authorized [id number] 3 3 Reason Comments Seizures Reason Onset Date Comments Medical Record Review 12/16/2024 Care Teams (unrecognized sec tion and content) Knuckle Strap Sewer Relationship Specialty Start Date End Date Aileen Corcoran DDS [address] [place], [place] [phone] Resident Dentistry 08/20/20 Knuckle Strap Sewer Relationship Specialty Start Date End Date Aileen Corcoran DDS [address] [place] [address] Resident Dentistry 08/20/20 Knuckle Strap Sewer Relationship Specialty Start Date End Date Aileen Corcoran DDS [address] [place], [place] [phone] Resident Dentistry 08/20/20 Knuckle Strap Sewer Relationship Specialty Start Date End Date Aileen Corcoran DDS [address] [place], [place] [phone] Resident Dentistry 08/20/20 Knuckle Strap Sewer Relationship Specialty Start Date End Date Aileen Corcoran DDS [address] [place], [place] [phone] Resident Dentistry 08/20/20 Knuckle Strap Sewer Relationship Specialty Start Date End Date Aileen Corcoran DDS [address] [place], [place] [phone] Resident Dentistry 08/20/20 Knuckle Strap Sewer Relationship Specialty Start Date End Date Aileen Corcoran DDS [address] [place] [phone] Resident Dentistry 08/20/20 Knuckle Strap Sewer Relationship Specialty Start Date End Date Aileen Corcoran DDS [address] [place] [phone] Resident Dentistry 08/20/20 Knuckle Strap Sewer Relationship Specialty Start Date End Date Aileen Corcoran DDS [address] [place] [address] Resident Dentistry 08/20/20 Knuckle Strap Sewer Relationship Specialty Start Date End Date Aileen Corcoran DDS [address] [place] [address] Resident Dentistry 08/20/20 Knuckle Strap Sewer Relationship Specialty Start Date End Date Aileen Corcoran DDS [address] [place] [phone] Resident Dentistry 08/20/20 Knuckle Strap Sewer Relationship Specialty Start Date End Date Aileen Corcoran DDS [address] [place] [address] Resident Dentistry 08/20/20 Knuckle Strap Sewer Relationship Specialty Start Date End Date Aileen Corcoran DDS [address] [place] [address] Resident Dentistry 08/20/20 Ling Coffman APRN-CNP [address] [place] [id number] MAINFRAME SYSTEMS ENGINEER Anesthesiology 01/19/24 Knuckle Strap Sewer Relationship Specialty Start Date End Date Aileen Corcoran DDS [address] [place] [address] Resident Dentistry 08/20/20 Ling Coffman APRN-CNP [address] [place] [address] MAINFRAME SYSTEMS ENGINEER Anesthesiology 01/19/24 Source Comments (unrecognize d section and content) In the event this informatio n is protected by the [facility] Confidentiality of Alcohol and Drug Abuse Patient Records regulations: The Federal rules restrict any use of the information to criminally investigate or prosecute any alcohol or drug abuse patient.[facility] the event this information is protected by the Federal Confidentiality of Alcohol and Drug Abuse Patient Records regulations: The Federal rules restrict any use of the information to criminally investigate or prosecute any alcohol or drug abuse patient.[facility] Hospital[facility] the event this information is protected by the Federal Confidentiality of Alcohol and Drug Abuse Patient Records regulations: The Federal rules restrict any use of the information to criminally investigate or prosecute any alcohol or drug abuse patient.[facility] Hospital[facility] the event this information is protected by the Federal Confidentiality of Alcohol and Drug Abuse Patient Records regulations: The Federal rules restrict any use of the information to criminally investigate or prosecute any alcohol or drug abuse patient.[facility] Hospital[facility] the event this information is protected by the Federal Confidentiality of Alcohol and Drug Abuse Patient Records regulations: The Federal rules restrict any use of the information to criminally investigate or prosecute any alcohol or drug abuse patient.[facility] Hospital[facility] the event this information is protected by the Federal Confidentiality of Alcohol and Drug Abuse Patient Records regulations: The Federal rules restrict any use of the information to criminally investigate or prosecute any alcohol or drug abuse patient.[facility] Hospital[facility] the event this information is protected by the Federal Confidentiality of Alcohol and Drug Abuse Patient Records regulations: The Federal rules restrict any use of the information to criminally investigate or prosecute any alcohol or drug abuse patient.[facility] Hospital[facility] the event this information is protected by the Federal Confidentiality of Alcohol and Drug Abuse Patient Records regulations: The Federal rules restrict any use of the information to criminally investigate or prosecute any alcohol or drug abuse patient.[facility] Hospital[facility] the event this information is protected by the Federal Confidentiality of Alcohol and Drug Abuse Patient Records regulations: The Federal rules restrict any use of the information to criminally investigate or prosecute any alcohol or drug abuse patient.[facility] Hospital[facility] the event this information is protected by the Federal Confidentiality of Alcohol and Drug Abuse Patient Records regulations: The Federal rules restrict any use of the information to criminally investigate or prosecute any alcohol or drug abuse patient.[facility] (unrecognized sect ion and content) No Status Records FoundNo Status Records FoundNo Status Records FoundNo Status Records FoundNo Status Records FoundNo Status Records Found INFORMATION SOURCE (unrecogn ized section and content) DATE CREATED AUTHOR 01/26/2023 [facility] DATE CREATED AUTHOR AUTHOR'S ORGANIZ ATION 01/13/2024 [facility] DATE CREATED AUTHOR AUTHOR'S ORGANIZ ATION 02/15/2024 [facility] DATE CREATED AUTHOR AUTHOR'S ORGANIZ ATION 02/22/2024 [facility] DATE CREATED AUTHOR AUTHOR'S ORGANIZ ATION 12/04/2024 [facility] DATE CREATED AUTHOR AUTHOR'S ORGANIZ ATION 12/17/2024 [facility] [employer] [facility] Scheduled Active and Recently Administ ered [...] socket sites after extraction) lidocaine-epinephrine (XYLOCAINE) 2 %-1:504033 injection (CANCELED) PRN, Starting on Sun12/28/23 at [...] BE BASED ON THE PRIMARY CLINICAL RECORDS. [facility]. provides no warranty or guarantee of the accuracy or completeness of information in this document.
== END 2025-02-05 09:05 | disposition home or self-care (01) ==
LOC: RAD 09:04
PROVIDERS: PCP Family Medicine; Visit Provider Family Medicine
DX: M81.0 Age-related osteoporosis without current pathological fracture (principal); Z79.899 Other long term (current) drug therapy
CPT/HCPCS: 77080

== ENCOUNTER 2025-02-27 19:38 | Emergency (ER) | payer MEDICARE, MEDICAID, SELFPAY ==
--- OUTSIDE RECORDS SUMMARY | 2025-02-24 10:00 | XMS_ITS | Encounter Summary ---
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 [address] [place] [address], [address]nd [place] [phone] Kendra Jaramillo DDS [address], [address] [place] [phone] Encounter for dental examination (Primary Dx) Social History Tobacco Use Types Packs/Day Years Used Date Smoking Tobacco: Never Smokeless Tobacco: Never Tobacco Cessation:Counseling Given: Not Answered Alcohol Use Standard Drinks/Week Comments Never 0 (1 standard drink = 0.6 oz pur e alcohol) Sex and Gender Information Value Date Recorded Sex Assigned at Not on file Legal Sex Male 4:19 PM EDT Gender Identity Not on file Sexual Orientation Not on file documented as of this encounter Patient Instructions * Patient Instructions* Kendra Jaramillo DDS - 02/24/2025 10:00 AM EDT Your Caries Risk Report Your Risk Level: Low Moderate High x MODERATE RISK MINIMAL RECOMMENDATIONS: Bitewing radiographs every 18-24 months (ADA recommendations) Periodic recall exams every 4-6 months to reevaluate caries risk OTC fluoride-containing toothpaste twice daily. After breakfast and at bedtime. 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 Chief Complaint Patient presents with New Patient History of Present Illness Past Medical History: Diagnosis Date ADHD Autism Bipolar 1 disorder Bleeding gums Cataract Chronic constipation Dyspepsia Epilepsy High risk for fracture due to osteoporosis by DEXA scan Hyperlipidemia Hypothyroidism Intellectual developmental disorder, moderate Periodontal disease Sinus bradycardia Current Outpatient Medications Medication Sig Atorvastatin 10 MG tablet TAKE ONE TABLET BY MOUTH DAILY LIPITOR buPROPion 150 MG tablet SR TAKE ONE TABLET BY MOUTH TWICE A DAY WELLBUTRIN cloNIDine 0.2 MG tablet TAKE ONE TABLET BY MOUTH TWICE A DAY CATAPRES Divalproex Sodium 125 MG Capsule Delayed Release Sprinkle TAKE FOUR CAPSULES BY MOUTH THREE TIMES JUANJOSE Jung (Aquaphor Adv Therapy Healing) 41 % Ointment APPLY INTRANASALLY BILATERALLY TWICE A DAY faMOTIdine 20 MG tablet TAKE ONE TABLET BY MOUTH TWICE A DAY PEPCID fluticasone 50 MCG/ACT Suspension nasal spray INSTILL 2 SPRAYS PER NOSTRIL EVERY MORNING FOR SINUS CONGESTION FLONASE GuanFACINE HCl 4 MG Tab SR 24 HR TAKE ONE TABLET BY MOUTH EVERY MORNING INTUNIV levothyroxine 112 MCG tablet TAKE ONE TABLET BY MOUTH DAILY SYNTHROID Linzess 290 MCG capsule Take 1 capsule by mouth daily. [place] 300 MG capsule TAKE ONE CAPSULE BY MOUTH TWICE A DAY ESKALITH Loratadine 10 MG tablet TAKE ONE TABLET BY MOUTH DAILY CLARITIN LORazepam 2 MG tablet TAKE ONE TABLET BY MOUTH 3 TIMES DAILY ATIVAN Montelukast 10 MG tablet TAKE ONE TABLET BY MOUTH DAILY SINGULAIR Naltrexone 50 MG tablet TAKE ONE TABLET BY MOUTH TWICE A DAY REVIA Polyethylene Glycol 3350 (PEG 3350) 17 GM/SCOOP Powder QUEtiapine 100 MG tablet TAKE ONE TABLET BY MOUTH TWICE A DAY SEROQUEL risperiDONE 3 MG tablet TAKE ONE TABLET BY MOUTH TWICE DAILY RISPERDAL Sodium chloride 0.65 % Solution nasal spray INSTILL 2 SPRAYS BILATERALLY 3 TIMES DAILY INTRANASALLY There were no vitals filed for this visit. Allergies Allergen Reactions Biaxin [Clarithromycin] Nausea and Vomiting Tobacco Use: Low Risk (02/24/2025) Patient History Smoking Tobacco Use: Never Smokeless Tobacco Use: Never Passive Exposure: Not on file Dental Case Management: Treatment considerations resulting in substantial functional limitations requiring modifications todeliver treatment to provide comprehensive oral health care based on findings including: Cognitive:Other (describe in note) Patient has moderate IDD and Autism ASA Grade: ASA 3 - Patient with moderate systemic disease with functional limitations Radiographic Interpretation: Pano attempted Images and Retakes: Bitewings: 0 Vertical Bitewings: 0 PA: 0 Panorex: 1 Retakes: 0 Risk Assessments: Caries Risk: High risk Oral Cancer: Periodontal: Head and Neck Exam Extraoral Exam: Abnormal: head (large scar and indent in center of forehead) Intraoral Exam: Abnormal: tongue (coated tongue) and gums (edematous, erythematous) Severe plaque and calculus build up All other head and neck concerns negative Soft Tissue Exam No findings documented this visit Periodontal: Diagnosis: 1. Encounter for dental examination Assessment: Patient presented to the clinic today for a new patient examination accompanied by their caregiver.Medical history and guardianship documentation were provided at the time of the visit. The patient permitted a limited clinical and visual examination and attempted a panoramic radiograph (panorex). However, due to moderate intellectual and developmental disability (IDD), the patient was unable to tolerate or complete a comprehensive dental examination. It is noted that the patient has a high body mass index (BMI), a medical history significant for epilepsy, and moderate IDD. Due to these factors, the patient is not an appropriate candidate for sedation within the [facility] clinic setting. As such, we have recommended dental treatment under general anesthesia in the operating room (OR) and provided the caregiver with the necessary referral paperwork and instructions. Procedure Details D0140 - LIMITED ORAL EVALUATION - PROBLEM FOCUSED Was local anesthetic administered? No Refer to assessment note above D0330 - PANORAMIC RADIOGRAPHIC IMAGE Next Visit: OR for comprehensive exam, full mouth series of radiographs, adult prophylaxis Encounter Providers N/A: Kendra Jaramillo DDS documented in this encounter Miscellaneous Notes * Dental Procedure Details - Kendra Jaramillo DDS - 02/24/2025 10:00 AM EDT Was local anesthetic administered? No Refer to assessment note above documented in this encounter Plan of Treatment Scheduled Orders Name Type Priority Associated Diagnoses Orde r Schedule PROPHYLAXIS - ADULT Dental Routine 1 Occ urrences starting 02/24/2025 COMPREHENSIVE ORAL EVAL - NEW/EST PATIENT Dental Routine [address] arting 02/24/2025 INTRAORAL - COMPLETE SERIES OF RADIOGRAPHIC IMAGES Dental Routine [address] arting 02/24/2025 documented as of this encounter Procedures Procedure Name Priority Date/Time Associated Diagnosis Comments PANORAMIC RADIOGRAPHIC IMAGE Routine 02/24/2025 10:00 AM EDT Encounter for dental examination LIMITED ORAL EVALUATION - PROBLEM FOCUSED Routine 02/24/2025 10:00 AM EDT Encounter for dental examination documented in this encounter Visit Diagnoses Diagnosis Encounter for dental examination- Primary Dental examination documented in this encounter
--- OUTSIDE RECORDS SUMMARY | 2025-02-27 19:47 | XMS_ITS | Clinical Summary ---
Author Organization [facility] Address [address] [place] [address] Care Team Providers Care Food And Drug Research Scientist Name Role Phone Unavailable Primary Care Provider [...] Description 12/02/2024 12:40 PM EDT Office Visit [facility] [address] [place] [phone] Cris Walters PA Alteration of awareness (Primary Dx) 12/02/2024 Bamboo flowsheet [facility] [address] [place] [phone] Cris Walters PA from Last 3 [...]
--- OUTSIDE RECORDS SUMMARY | 2025-02-27 19:47 | XMS_ITS | Clinical Summary ---
Author Organization [facility] Address [address] [place] [address] Care Team Providers Care Bull Fiddle Player Name Role Phone Aileen Corcoran DDShira Primary [...] 06/07/2022, 06/15/2021, Additional history exists Flu vaccine (#1) 03/20/2025 06/06/2023, , 06/15/2021, Additional history exists DTaP/Tdap/Td vaccine (2 [...] topic Insurance MEDICARE [place]ICAID [place] Care Teams Bull Fiddle Player Relationship Specialty Start Date End Date Aileen Corcoran DDS [address] [facility] [address] [place] [address] PCP - General Dentistry 09/21/23
--- OUTSIDE RECORDS SUMMARY | 2025-02-27 19:47 | XMS_ITS | Clinical Summary ---
Author Organization [facility] Address [address] [place] [address] Phone Care Team Providers Care Automobile Body Repair Chief Name Role Phone Unavailable Primary Care Provider Unavailabl e Allergies Active Allergy Reactions Criticality Noted Date Comments Clarithromycin Nausea and Vomiting 02/24/2025 Medications Atorvastatin 10 MG tablet TAKE ONE TABLET BY MOUTH DAILY LIPITOR 5 Active buPROPion 150 MG tablet SR TAKE ONE TABLET BY MOUTH TWICE A DAY WELLBUTRIN 5 Active cloNIDine 0.2 MG tablet TAKE ONE TABLET BY MOUTH TWICE A DAY CATAPRES 5 Active Divalproex Sodium 125 MG Capsule Delayed Release Sprinkle TAKE FOUR CAPSULES BY MOUTH THREE TIMES A DAY PASTOR PEREZ 5 Active Emollient (Aquaphor Adv Therapy Healing) 41 % Ointment APPLY INTRANASALLY BILATERALLY TWICE A DAY 5 Active faMOTIdine 20 MG tablet TAKE ONE TABLET BY MOUTH TWICE A DAY PEPCID 5 Active fluticasone 50 MCG/ACT Suspension nasal spray INSTILL 2 SPRAYS PER NOSTRIL EVERY MORNING FOR SINUS CONGESTION FLONASE 5 Active GuanFACINE HCl 4 MG Tab SR 24 HR TAKE ONE TABLET BY MOUTH EVERY MORNING INTUNIV 5 Active levothyroxine 112 MCG tablet TAKE ONE TABLET BY MOUTH DAILY SYNTHROID 4 Active Linzess 290 MCG capsule Take 1 capsule by mouth daily. 5 Active [place] 300 MG capsule TAKE ONE CAPSULE BY MOUTH TWICE A DAY ESKALITH 5 Active Loratadine 10 MG tablet TAKE ONE TABLET BY MOUTH DAILY CLARITIN 5 Active LORazepam 2 MG tablet TAKE ONE TABLET BY MOUTH 3 TIMES DAILY ATIVAN 5 Active Montelukast 10 MG tablet TAKE ONE TABLET BY MOUTH DAILY SINGULAIR 5 Active Naltrexone 50 MG tablet TAKE ONE TABLET BY MOUTH TWICE A DAY REVIA 5 Active Polyethylene Glycol 3350 (PEG 3350) 17 GM/SCOOP Powder 5 Active QUEtiapine 100 MG tablet TAKE ONE TABLET BY MOUTH TWICE A DAY SEROQUEL 5 Active risperiDONE 3 MG tablet TAKE ONE TABLET BY MOUTH TWICE DAILY RISPERDAL 5 Active Sodium chloride 0.65 % Solution nasal spray INSTILL 2 SPRAYS BILATERALLY 3 TIMES DAILY INTRANASALLY 5 Active Active Problems No known active problems Encounters Date Type Department Care Team Description 02/24/2025 10:00 AM EDT 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 [address] [place] [address], 2nd [place] [phone] Kendra Jaramillo DDS Encounter for dental examination (Primary Dx) from Last 3 Months Social History Tobacco [...] on file Sexual Orientation Not on file Plan of Treatment Health Maintenance Due Date Last Done Comments Dental Oral Exam 1992 Dental Prophylaxis 1992 HEPATITIS C VIRUS SCREENING 1992 TSH 1992 HIV SCREENING DISCUSSION 2007 HEP B VACCINE (1 of 3 - 19+ 3-dose series) 2011 COVID-19 VACCINE ( season) 2024 INFLUENZA VACCINE (#1) 2025 4, 06/06/2023, 06/07/2022, Additional history exists TETANUS 07/10/2029 07/10/2019 TDAP (ADULT) Completed 07/10/2019 HPV VACCINE Aged Out No longer eligi ble based on patient's age to complete this topic PNEUMOCOCCAL VACCINE SERIES Aged Out No longer eligible based on patient's age to complete this topic Procedures Procedure Name Priority Date/Time Associated Diagnosis Comments PANORAMIC RADIOGRAPHIC IMAGE Routine 02/24/2025 10:00 AM EDT Encounter for dental examination LIMITED ORAL EVALUATION - PROBLEM FOCUSED Routine 02/24/2025 10:00 AM EDT Encounter for dental examination from Last 3 Months Insurance [place] D[place]
--- OUTSIDE RECORDS SUMMARY | 2025-02-27 19:47 | XMS_ITS | Clinical Summary ---
Author Organization [facility] Address [address] [place] [id number] Care Team Providers Care County Coroner Name Role Phone Unavailable Primary Care Provider [...] drink = 0.6 oz pur e alcohol) [facility] Utilities Answer Date Recorded In the past [...] place to sleep or slept in a care home (including now)? Patient unable to answer 10/29/2023 [...] 06/07/2022, 06/15/2021, Additional history exists Influenza Vaccine (#1) 2025 , 06/07/2022, 06/15/2021, Additional history exists DTaP,Tdap,Td Vaccine (2 - Td or Tdap) 07/10/2029 07/10/[address] [place] [address] MEDICARE [place]ICAID [place]
--- OUTSIDE RECORDS SUMMARY | 2025-02-27 19:48 | XMS_ITS | CCD ---
Author Organization [facility] CliniSyok Care Team Providers Care Implement Mechanic Name Role Phone Jewell MATA, Gallagher Unavailable Unavailable Primary Care Provider Unavailabl e Unavailable Primary Care Provider Unavailabl e CRANE, DR HERMAN Pollack Primary Care Unavailable CRANE, DR HERMAN Plolack Admitting Unavailable CRANE, DR HERMAN Pollack Attending Unavailable CRANE, DR HERMAN Pollack Consulting Unavailable CRANE, DR HERMAN Pollack Primary Care Unavailable CRANE, DR HERMAN Pollack Admitting Unavailable CRANE, DR HERMAN Pollack Attending Unavailable CRANE, DR HERMAN Pollack Consulting Unavailable CRANE, DR HERMAN Pollack Consulting Unavailable CRANE, DR HERMNA Pollack Primary Care Unavailable CRANE, DR HERMAN [...] CRANE, DR HERMAN Pollack Consulting Unavailable Jewell MATA Gallagher Unavailable [phone] HERMAN CRANE Primary Care Physician Unavailable Primary Care Provider Unavailabl e Unavailable Primary Care Provider Unavailabl e PHOENIX CARDENAS Referring Unavailable BESAMUEL MONROY Admitting Unava ilable ELIU GAN Attending Unavailable CHEHROSCAR HUIZAR Attending Unavailable DANIELVICTORIA Attending Unavailable CRANE, HERMAN Attending Unavailable CRANE, HERMAN Admitting Unavailable CRANE, HERMAN Admitting Unavailable CRANE, HERMAN Attending Unavailable CRANE, HERMAN Attending Unavailable CRANE, HERMAN Admitting Unavailable Markiv MILL FEEDER-MATHEMATICS TECHNICIAN, Ling Unavailable [phone] Unavailable Primary Care Provider Unavailabl e Unavailable Primary Care Provider Unavailabl e BENEDICT, EPIFANIO Attending Unavailable BENEDICT, EPIFANIO Referring Unavailable LOWE, CRIS Attending Unavailable LOWE, CRIS Attending Unavailable LOWE, CRIS Attending Unavailable KASSIDY, MARI Referring Unavailable KASSIDY, MARI Attending Unavailable KASSIDY, MARI Admitting Unavailable WAKELING, RYAN Admitting Unavailable WAKELING, RYAN Attending Unavailable WAKELING, RYAN Admitting Unavailable MARKIV, LING Attending Unavailable WAKELING, RYAN Admitting Unavailable KASSIDY, MARI Attending Unavailable Unavailable Primary Care Provider Unavailabl e Allergies Allergy Classification Reported Allergen(s) Allergy Type Date of Onset Reaction(s) Facility Macrolides (antibiotic) (1 source) Clarithromycin Drug Allergy 05-04-20 Other: See Comments [facility] (20 sources) Clarithromycin; Translations: [CLARITHROMYCIN] Propensity to adverse reactions to drug 06-12-20 18 Other, Nausea and Vomiting [facility] Work Phone: (9 sources) Clarithromycin Drug Allergy 05-04-20 Other: See Comments [facility] (1 source) Clarithromycin Drug Allergy [facility] Repository Medications Current Medications Medication Drug [...] tablet (20 sources) HMG-CoA Reductase Inhibitor Start: 02-16-2025 take 1 tablet by mouth once daily Atorvastatin 10 MG tablet TAKE ONE TABLET BY MOUTH DAILY LIPITOR 02/16/2025 Active Start: 01-21-2021 atorvastatin ( LIPITOR) 10 MG tablet 01/21/2021 Active benoxinate hydrochloride 4 mg/ml / fluorescein sodium 2.5 mg/ml ophthalmic solution (1 source) Diagnostic Dye Start: 05-04-2022 End: 05-04-2022 fluorescein-benoxinate 0.25-0.4 % 1 Drop (FLURESS) benzonatate 100 [...] route once daily. 12 hr buPROPion hydrochloride 150 mg extended release oral tablet (6 sources) Aminoketone Start: take 1 tablet by mouth twice daily buPROPion 150 MG tablet SR TAKE ONE TABLET BY MOUTH TWICE A DAY WELLBUTRIN 02/16/2025 Active take 1 tablet by linda th every twelve hours in the morning buPROPion SR (Wellbutrin SR) 200 MG 12 h r tablet Take 200 mg by mouth in [...] Start: 01-13-2021 take 1 tablet by linda twice daily Calcium Carbonate-Vitamin D (Oyster Shell [...] (20 sources) Central alpha-2 Adrenergic Agonist Start: 02-17-20 25 take 1 tablet by mouth twice daily cloNIDine 0.2 MG tablet TAKE ONE TABLET BY MOUTH TWICE A DAY CATAPRES 02/16/2025 Active Start: 11-07-2023 take 1 tablet by linda three times daily cloNIDine HCl (CATAPRES) 0.2 mg tablet Take 1 tablet by mouth three times a day. 0800, 1600, 2000 Please check blood pressure prior to administration and hold for systolic blood pressure 0 11/07/2023 Active Start: 04-27-2022 cloNIDine HCl (CATAPRES) 0.2 mg tablet Comment on above: Take 1 tablet by linda three times a day. 0800, 1600, 2000 [...] mg by mouth 2 times daily. Active Emollient (Aquaphor Adv Therapy Healing) 41 % Ointment (1 source) Start: Emollient (Aquaphor Adv Therapy Healing) 41 % Ointment APPLY INTRANASALLY BILATERALLY TWICE A DAY 10/27/2024 Active famotidine 20 mg oral tablet (20 sources) Histamine-2 Receptor Antagonist Start: 025 take 1 tablet by mouth twice daily faMOTIdine 20 MG tablet TAKE ONE TABLET BY MOUTH TWICE A DAY PEPCID 02/16/2025 Active Start: 04-27-2022 famotidine (PE PCID) 20 mg tablet fluticasone propionate 0.05 mg/actuat metered dose nasal spray (20 sources) Corticosteroid Start: 02-02-2025 take 2 spray(s) nasal route once in the morning for congestion fluticasone 50 MCG/ACT Suspension nasal spray INSTILL 2 SPRAYS PER NOSTRIL EVERY MORNING FOR SINUS CONGESTION FLONASE 02/02/2025 Active Start: 03-21-2022 take 2 spray(s) nasa l route once in the morning for congestion fluticasone (FLONASE) 50 mcg/actuation nasal spray INSTILL 2 SPRAYS PER NOSTRIL EVERY MORNING FOR SINUS CONGESTION 0 03/21/2022 Active take 1 spray(s) nasa l route once daily fluticasone (Flonase) 50 MCG/ACT [...] (20 sources) Central alpha-2 Adrenergic Agonist Start: 02-16-2025 take 1 tablet by mouth once daily in the morning GuanFACINE HCl 4 MG Tab SR 24 HR TAKE ONE TABLET BY MOUTH EVERY MORNING INTUNIV 02/16/2025 Active Start: 01-21-2021 GuanFACINE HCl (TENEX) 4 MG er tablet 01/21/2021 Active guanfacine (TENE X) 1 MG tablet guanfacine 1 mg tablet Active take 2 tablets by mo uth in the morning guanFACINE (Tenex) 2 MG tablet Take 2 [...] 1 tablet by mouth once daily levothyroxine 112 MCG tablet TAKE ONE TABLET BY MOUTH DAILY SYNTHROID 07/09/2024 Active levothyroxine (T irosint) 112 MCG capsule Take by mouth Daily before meals Active Comment on above: Take 112 mcg by mout h once daily. linaclotide 0.29 mg oral capsule (20 sources) Guanylate Cyclase-C Agonist Start: 02-02-2025 take 1 capsule by mouth once daily Linzess 290 MCG capsule Take 1 capsule by mouth daily. 02/02/2025 Active Start: 07-09-2020 Linzess 290 MC G CAPS capsule 07/09/2020 Active Comment on above: Take 290 mcg by mout h once daily. lithium carbonate 300 mg oral capsule (20 sources) Start: 02-16-2025 take 1 capsule by mouth twice daily [place] 300 MG capsule TAKE ONE CAPSULE BY MOUTH TWICE A DAY ESKALITH 02/16/2025 Active Start: 04-27-2022 lithium carbon ate (ESKALITH) 300 mg capsule Start: 04-27-2022 lithium carbon ate (ESKALITH) 300 mg capsule Take 300 mg by mouth two times a day. 1999 0 04/27/2022 Active Comment on above: Take 300 mg by mouth two times a day. 1999 loratadine 10 mg oral tablet (13 sources) Start: 02-16-2025 take 1 tablet by mouth once daily Loratadine 10 MG tablet TAKE ONE TABLET BY MOUTH DAILY CLARITIN 02/16/2025 Active loratadine (Clar itin) 10 MG tablet Take by mouth Active take 1 capsule by mo [facility] once daily at bedtime loratadine 10 mg cap Take 10 mg by mouth daily at bedtime. 0 Active Comment on above: Take 10 mg by mouth daily at bedtime. LORazepam 2 mg oral tablet (20 sources) Benzodiazepine Start: 5 take 1 tablet by mouth three times daily LORazepam 2 MG tablet TAKE ONE TABLET BY MOUTH 3 TIMES DAILY ATIVAN 02/10/2025 Active Start: 04-11-2022 take 1 tablet by linda th three times daily LORazepam (ATIVAN) 2 mg [...] oral tablet (20 sources) beta-Adrenergic Antony Start: metoprolol (LOPRESSOR) 50 MG tablet 01/21/2021 Active montelukast 10 mg oral tablet (18 sources) Leukotriene Receptor Antagonist Start: 5 take 1 tablet by mouth once daily Montelukast 10 MG tablet TAKE ONE TABLET BY MOUTH DAILY SINGULAIR 02/16/2025 Active take 1 tablet by mouth once lainey y montelukast (SINGULAIR) 10 MG tablet Take 10 [...] 4 mg/0.1 mL nasal liquid Use 1 [place] in one nostril (alternate sides) as needed for Drug Overdose for up to 1 dose. Every 2-3 mins. until help arrives. 2 Each 1 12/28/2023 Active naltrexone hydrochloride 50 mg oral tablet (20 sources) Opioid Antagonist Start: 02-17-20 25 take 1 tablet by mouth twice daily Naltrexone 50 MG tablet TAKE ONE TABLET BY MOUTH TWICE A DAY REVIA 02/16/2025 Active Start: 04-19-2022 take 2 tablets by mo [facility] twice daily naltrexone (TREXAN) 50 mg tablet TAKE TWO TABLETS BY MOUTH TWICE DAILY REVIA 0 04/19/2022 Active Start: 04-19-2022 [facility]alt[facility]one (TREXAN) 50 mg tablet Take 50 mg by mouth two times a day. 0 04/19/2022 Active take 1 tablet by linda once daily naltrexone (DEPADE) 50 MG tablet [...] nausea or vomiting Active polyethylene glycol 3350 30944 mg powder for oral solution (20 sources) Osmotic Laxative Start: Polyethylene Glycol 3350 (PEG 3350) 17 GM/SCOOP Powder 02/23/2025 Active Start: 01-24-2021 End: 12-28-2023 polyethylene glycol 3350 (TX RALAX, GLYCOLAX) 17 gram/dose powder Take 17 g by mouth once daily. 0 03/21/2022 Active Comment on above: TAKE 17G WITH LIQUID BY MOUTH DAILY IN THE MORNING Take 17 g by mouth o nce daily. POLYETHYLENE GLYCOL EXTERNAL (5 sources) Start: 08-23-2023 take 17 g by mouth once daily POLYETHYLENE GLYCOL EXTERNAL Take 17 g by mouth daily. 08/23/2023 Active Start: 08-23-2023 take 17 g by mouth once daily POLYETHYLENE GLYCOL EXTERNAL Take 17 g by mouth daily. 0 08/23/2023 Active QUEtiapine 100 mg oral tablet (20 sources) Atypical Antipsychotic Start: 02-16-2025 take 1 tablet by mouth twice daily QUEtiapine 100 MG tablet TAKE ONE TABLET BY MOUTH TWICE A DAY SEROQUEL 02/16/2025 Active Start: 11-02-2023 End: 12-02-2023 take 1 tablet by mouth twice daily QUEtiapine (SEROQUEL) 100 mg tablet Take 1 tablet by mouth two times a day. 60 tablet 0 11/02/2023 Active Start: 04-27-2022 QUEtiapine (SE ROQUEL) 200 mg tablet Comment on above: Take 1 tablet by linda th two times a day. risperiDONE 3 mg oral tablet (20 sources) Atypical Antipsychotic Start: take 1 tablet by mouth twice daily risperiDONE 3 MG tablet TAKE ONE TABLET BY MOUTH TWICE DAILY RISPERDAL 02/16/2025 Active Start: 04-27-2022 take 1 tablet by linda th twice daily risperiDONE (RISPERDAL) 3 mg tablet [...] tablet (20 sources) Serotonin Reuptake Inhibitor Start: 04-27-2022 sertraline (ZOLOFT) 100 mg tablet Start: 04-27-2022 [...] Take with 100mg zoloft in the morning sodium chloride 0.111 meq/ml nasal solution (2 sources) Start: 12-08-2024 Sodium chloride 0.65 % Solution nasal spray INSTILL 2 SPRAYS BILATERALLY 3 TIMES DAILY INTRANASALLY 12/08/2024 Active Start: 12-28-2023 sodium chlorid e 0.9 % 0.9 % injection tropicamide 10 mg/ml ophthalmic solution (1 source) Anticholinergic Start: 05-04-2022 End: 05-04-2022 tropicamide 1 % 1 Drop (MYDRIACYL) divalproex sodium 125 mg delayed release oral capsule (20 sources) Mood Stabilizer, Anti-epileptic Agent Start: 02-16-2025 take 4 capsules by mouth three times daily Divalproex Sodium 125 MG Capsule Delayed Release Sprinkle TAKE FOUR CAPSULES BY MOUTH THREE TIMES A DAY PASTOR PEREZ 02/16/2025 Active Start: 12-12-2023 divalproex (DE PAKOTE SPRINKLE) 125 MG CSDR capsule 125 mg 2 times daily. 12/12/2023 Active take 4 tablets by mo uth in the morning divalproex (Depakote) 125 MG EC tablet Take 4 tablets by mouth in the morning and 4 tablets before bedtime. Do not crush, chew, or split. 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 CURRENT DRUG THERAPY] Onset: 12-04-19 Episodic Other [...] Oropharyngeal dysphagia; Translations: [Dysphagia, oropharyngeal phase] Onset: 11-06-19 24 11-07-2023 Episodic Other male genital disorders (1 source) [...] states] Onset: 11-05-1911-05-2023 Episodic Residual codes; unclassified (10 sources) Lack [...] Remisol Chem Physician Orderon 02-13-2024 Physician Order [id number]# 1.00TIFF Normal [facility] Valproic Acidon 02-13-2024 Valpro Acid Lvl 98 microgram/mL Normal 50-99 [facility] Comment on above: Performed By: #### 2 [id number] #### [facility] [address] [place] [address] Lara 01-11-2024 CNPN Telephone (CORSMN) JOHNNY DEVINE ([id number]) 1990 M Date Time Provider Department 01/11/24 CRIS DINH During your visit today, we recorded the following information about you: Cris Dinh, RN 01/11/2024 1:50 PM Signed Jessica from [facility] [phone] is caller. 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 Normal [facility] Anesthesia Preprocedure Eval uationon 12-28-2023 Software Support Specialist Authentication Interface Message Text ASA: 3 NPO [...] and physical examination. Attestation: MHPATFORM Normal [facility] Anesthesia Transfer Of Careo n 12-28-2023 Software Support Specialist Authentication Interface Message Text Patient taken to [...] DENTAL RESTORATIONS; Surgeon: Harpreet Mccurdy DDS; Location: [facility] Surgery [place]; Service: Dental Allergies: Biaxin [clarithromycin] Basic Operating Room Facts: Surgeon(s): Mari Traore DMD Anesthesiologist: Linda Saldivar MD GAS INSPECTOR: Selena Camacho APRN-CRNA DENTAL RESTORATIONS (Bilateral: Mouth) [...] [phone] Comment: The [place] Diabetes Association (ADA) provides guidance for cutoff [...] Standards of Medical Care in Diabetes 2016, [place] Diabetes Association. Diabetes Care. 2016.39(Suppl 1). 8 0.70 8.2 11/06/23 0943 [phone] Comment: The [place] Diabetes Association (ADA) provides guidance for cutoff [...] Standards of Medical Care in Diabetes 2016, [place] Diabetes Association. Diabetes Care. 2016.39(Suppl 1). 6 0.69 8 (more content not included)... Normal [facility] Blood Attestationon 12-28-19 Software Support Specialist Authentication Interface Message Text Blood Attestation: ATTESTATION OF INFORMED CONSENT FOR BLOOD: The transfusion of blood and/or blood components were discussed with the patient and/or legal customer care representative. The risks, benefits and alternatives were reviewed. Questions regarding blood transfusions were answered. The patient /or the patient's legal customer care representative agree with the plan for transfusion of blood and/or blood components. Normal [facility] Brief Operative Noteon 12-27 Software Support Specialist Authentication Interface Message Text Brief Operative Note PHE OR 3 Johnny Devine 33 year old male Surgical Contact Serial Number: [id number] Preoperative Diagnosis: Pre-op Diagnosis * Caries [K02.9] Moderate intellectual disability [F79] Postoperative Diagnosis: Moderate intellectual disability [F79] Procedures: Comprehensive exam [17311] Full mouth X-ray [ 80222] Extractions [57371] Restorations [20256] Prophy 75774] Fluoride treatment [42652] Surgeon(s): Surgeon(s): Mari Traore DMD Staff: Processing Operator Nurse: Henrietta Johnson Anesthesia: General Anesthesia Staff: [...] Whiting DDS 12/28/2023 1;48 pm Normal [facility] OP Noteon 12-28-2023 Software Support Specialist Authentication Interface Message Text Surgical Case Number Data Unavailable Operating Room Data Unavailable Preoperative Diagnosis(es): Pre-op Diagnosis * Caries [K02.9] Moderate intellectual disability [F79] Postoperative Diagnosis(es): Moderate intellectual disability[F79] @ENCORD@ Surgeon: Dr. Mari Traore DMD Recruiter Account Manager Surgeon: Reema Whiting DDS Anesthesia: General- Nasal [...] 4 mg/0.1 mL nasal liquid Use 1 [place] in one nostril (alternate sides) as needed [...] Whiting DDS 12/28/2023 1:53 pm Normal [facility] Progress Noteson 12-28-2023 Software Support Specialist Authentication Interface Message Text Patient takes his seizure medication with pudding, facility held them today for dental surgery. Caregiver brought capsules with them to pre-op. Per Dr. Saldivar, divalproex 125 mg x 4 capsules (500 mg) were opened and sprinkles given to patient with 50 mL of water in pre-op. 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 MB cusp tip was visualized upon extraction of #17, but well encased in bone and would not be exposed to the oral cavity following healing of the extraction site. Preoperative Diagnosis(es): Pre-op Diagnosis * Caries [K02.9] Moderate intellectual disability [F79] Postoperative Diagnosis(es): Moderate intellectual disability[F79] Surgeon: Dr. Mari Traore DMD Recruiter Account Manager Surgeon: Reema Whiting DDS Anesthesia: General- Nasal [...] at end of surgery: Stable Normal [facility] CHRISTINA Delgado Software Support Specialist Authentication Interface Message Text Addendum 12/21/2023- Caregiver @ [facility] facility called to relay that patient unable to take medications without pudding. Per Dr. Newell: Instruct them to take the meds at night. Please then coordinate with either the anesthesia team or surgical team to order IV depacon so he can get his depakote. I would have the facility bring his oral depakote for after surgery If they can't get the depacon at [place] CHRISTINA RN updated nursing staff @ [facility]. Normal [facility] BASIC METABOLIC PANELon 05-0 Anion gap [Moles/Vol] 13 mmol/L Normal 10-20 [facility] Comment on above: Performed By: #### C H8 ####[facility] [id number] [place], [place], Calcium [Mass/Vol] 9.9 mg/dL Normal 8.6-10.3 [facility] Comment on above: Performed By: #### C H8 ####[facility] [id number] [place], [place], Chloride [Moles/Vol] 106 mmol/L Normal 98-107 [facility] Comment on above: Performed By: #### C H8 ####S PATHOLOGY [id number] [place], [place], CO2 [Moles/Vol] 25 mmol/L Normal 21-31 [facility] Comment on above: Performed By: #### C H8 ####S PATHOLOGY [id number] [place], [place], Creatinine [Mass/Vol] 0.93 mg/dL Normal 0.70-1.30 [facility] Comment on above: Performed By: #### C H8 ####S PATHOLOGY [id number] [place], [place], ESTIMATED GFR (CKD-EPI) 113 mL/min/1.73sqm Normal >=60 [facility] Comment on above: Result Comment: 2020 [...] Inclusion of Race in Diagnosing Kidney Disease. [place] Journal of Kidney Diseases 2021;79(2):268-88.e1. 2. N Engl J Med 1 Vol. 385 Issue 19 Pages [phone] Performed By: #### C H8 ####S PATHOLOGY [id number] [place], [place], Glucose [Mass/Vol] 115 mg/dL High 74-109 [facility] Comment on above: Performed By: #### C H8 ####S PATHOLOGY [id number] [place], [place], Potassium [Moles/Vol] 4.6 mmol/L Normal 3.5-5.0 [facility] Comment on above: Performed By: #### C H8 ####[facility] [id number] [place], [place], Sodium [Moles/Vol] 139 mmol/L Normal 136-145 [facility] Comment on above: Performed By: #### C H8 ####[facility] [id number] [place], [place], Urea nitrogen [Mass/Vol] 15 mg/dL Normal 7-25 [facility] Comment on above: Performed By: #### C H8 ####[facility] [id number] [place], [place], Basic metabolic 2000 panelon 12-19-2023 Anion [...] Inclusion of Race in Diagnosing Kidney Disease. [place] Journal of Kidney Diseases 2021;79(2):268-88.e1. 2. N Engl J Med 2020 Vol. 385 Issue 19 Pages [phone] Glucose [Mass/Vol] 115 mg/dL High 74 - 109 mg/dL [facility] Interpretation and review of laboratory results Abnormal [facility] Potassium [Moles/Vol] 4.6 mmol/L 3.5 - 5.0 mmol/L [facility] Sodium [Moles/Vol] 139 mmol/L 136 - 145 mmol/L [facility] Urea nitrogen [Mass/Vol] 15 mg/dL 7 - 25 mg/dL [facility] PAT Appt H AND Ross 4 Software Support Specialist Authentication Interface Message Text Patient was identified by name and date of . Jaswinder Arredondo Patient at risk for falls:No Falls Risk protocol implemented: N/A Normal [facility] Patient Instructionson 12-18 Software Support Specialist Authentication Interface Message Text [facility] staff: Since patient is unable to take [...] for pain. Please hold all Vitamin E, [place] 3, fish oil and herbal supplements for 1 week prior to surgery. Please use this LIST to prepare for your surgery/procedure: ? Assume that any lab or testing done during your Pre-admission testing appointment is within normal limits unless otherwise contacted. ? Expect a call from [facility] one business day prior to surgery for [...] questions. Contact the Pre-Admission Testing department at [phone] or your surgeon's office with any questions [...] stay with you after surgery. Please call [facility] if you need transportation assistance or have concerns about going home [phone]. ? SLEEP APNEA PATIENTS: Bring your sleep apnea machine and mask. ? PLEASE BE ON TIME. A late arrival may result in the cancellation/ delay of your surgery. 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] Obesity, Class I, BMI 30-34.9 [E66.9] 11/02/2023 S/P laparoscopy [Z98.890] 11/05/2023 Acute postoperative pain [G89.18] 11/05/2023 Oropharyngeal dysphagia [R13.12] 11/06/2023 Epilepsy (HCC) [G40.909] 11/06/2023 Level of Service: OFFICE/OUTPATIENT EST PT MAY NOT REQ PHYS/QHP [42504] LOS History for Encounter Encounter Status:Closed by OSCAR RUIZ on 12/03/23 Normal [facility] CNOVon 11-28-2023 CNOV Office Visit (CORTEZ ) NILSONJOHNNY ([id number]) 1990 M Date Time Provider Department 11/28/23 [...] Victoria Sanchez APRN.CNP 11/28/2023 10:19 AM Signed [facility] Clinic Date: November 28, 2023 Johnny Devine 33 year old male CHIEF COMPLAINT: Patient presents for follow up from surgery. HPI: Here for follow up after diagnostic laparotomy on 10/29/[address] Robin. Patient also underwent a dorsal slit procedure with urology on 10/30/2023 for paraphimosis. 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] Obesity, Class I, BMI 30-34.9 [E66.9] 11/02/2023 S/P laparoscopy [Z98.890] 11/05/2023 Acute postoperative pain [G89.18] 11/05/2023 Oropharyngeal dysphagia [R13.12] 11/06/2023 Epilepsy (HCC) [G40.909] 11/06/2023 Encounter Status:Closed by CRIS DINH on 3/25/24 [facility] metabolic 2000 panelon 11-07-2023 Anion gap [Moles/Vol] 10 mmol/L Normal 9-18 [facility] Comment on above: Order Comment: Speci men Type: BLOOD SPECIMEN Ordering Facility: [facility] Address: [address] [place] [address] Performed By: #### 2 4321-2, , 2776-08 #### [facility] CLIA [id number] [address] [place] [address] [place] Calcium [Mass/Vol] 8.2 mg/dL Low 8.5-10.2 [facility] Comment on above: Order Comment: Speci men Type: BLOOD SPECIMEN Ordering Facility: [facility] Address: [address] [place] [address] Performed By: #### 2 4321-2, , 2776-08 #### [facility] CLIA [id number] [address] [place] [address] [place] Chloride [Moles/Vol] 110 mmol/L High 97-105 [facility] Comment on above: Order Comment: Speci men Type: BLOOD SPECIMEN Ordering Facility: [facility] Address: [address] [place] [address] Performed By: #### 2 4321-2, , 2776-08 #### [facility] CLIA [id number] [address] [place] [address] [place] CO2 [Moles/Vol] 21 mmol/L Low 22-30 [facility] Comment on above: Order Comment: Speci men Type: BLOOD SPECIMEN Ordering Facility: [facility] Address: [address] [place] [address] Performed By: #### 2 4321-2, , 2776-08 #### [facility] CLIA [id number] [address] [place] [address] [place] Creatinine [Mass/Vol] 0.70 mg/dL Low 0.73-1.22 [facility] Comment on above: Order Comment: Sana zuñiga Type: BLOOD SPECIMEN Ordering Facility: [facility] Address: [address] [place] [address] Performed By: #### 2 4321-2, , 2776-08 #### [facility] CLIA [id number] [address] [place] [address] [place] Creatinine and Glomerular filtration rate.predicted panel (S/P/Bld) 126 mL/min/1.73m??? Normal >=60 [facility] Comment on above: Order Comment: Sana zuñiga Type: BLOOD SPECIMEN Ordering Facility: [facility] Address: [address] [place] [address] Result Comment: Lor mated Glomerular Filtration Rate [...] By: #### 2 4321-2, , 2776-08 #### [facility] CLIA [id number] [address] [place] [address] [place] Glucose [Mass/Vol] 91 mg/dL Normal 74-99 [facility] Comment on above: Order Comment: Sana zuñiga Type: BLOOD SPECIMEN Ordering Facility: [facility] Address: [address] [place] [address] Result Comment: The [place] [employer] (ADA) provides guidance for cutoff [...] Standards of Medical Care in Diabetes 2016, [place] [employer]. Diabetes Care. 2016.39(Suppl 1). Performed By: #### 2 4321-2, , 2776-08 #### [facility] CLIA [id number] [address] [place] [address] [place] Potassium [Moles/Vol] 4.4 mmol/L Normal 3.7-5.1 [facility] Comment on above: Order Comment: Speci men Type: BLOOD SPECIMEN Ordering Facility: [facility] Address: [address] [place] [address] Performed By: #### 2 4321-2, , 2776-08 #### [facility] CLIA [id number] [address] [place] [address] [place] Sodium [Moles/Vol] 141 mmol/L Normal 136-144 [facility] Comment on above: Order Comment: Speci men Type: BLOOD SPECIMEN Ordering Facility: [facility] Address: [address] [place] [address] Performed By: #### 2 432-2, , 2776-08 #### [facility] CLIA [id number] [address] [place] [address] [place] Urea nitrogen [Mass/Vol] 8 mg/dL Low 9-24 [facility] Comment on above: Order Comment: Speci men Type: BLOOD SPECIMEN Ordering Facility: [facility] Address: [address] [place] [address] Performed By: #### 2 432-2, , 2776-08 #### [facility] CLIA [id number] [address] [place], [place] [address] [place] CBC panel Auto (Bld)on 11-06 Erythrocyte distribution width (RBC) [Ratio] 15.1 % High 11.5-15.0 [facility] Comment on above: Order Comment: Speci men Type: BLOOD SPECIMENOrdering Facility: [facility] Address: [address] [place] [address] Performed By: #### 5 8410-2 ####[facility] [id number] [place] [address] [place] Hematocrit (Bld) [Volume fraction] 31.4 % Low 39.0-51.0 [facility] Comment on above: Order Comment: Speci men Type: BLOOD SPECIMENOrdering Facility: [facility] Address: [address] [place] [address] Performed By: #### 5 8410-2 ####[facility] [id number] [place] [address] [place] Hemoglobin (Bld) [Mass/Vol] 9.9 g/dL Low 13.0-17.0 [facility] Comment on above: Order Comment: Speci men Type: BLOOD SPECIMENOrdering Facility: [facility] Address: [address] [place] [address] Performed By: #### 5 8410-2 ####[facility] [id number] [place] [address] [place] MCH (RBC) [Entitic mass] 27.3 pg Normal 26.0-34.0 [facility] Comment on above: Order Comment: Speci men Type: BLOOD SPECIMENOrdering Facility: [facility] Address: [address] [place] [address] Performed By: #### 5 8410-2 ####[facility] [id number] [place] [address] [place] MCHC (RBC) [Mass/Vol] 31.5 g/dL Normal 30.5-36.0 [facility] Comment on above: Order Comment: Speci men Type: BLOOD SPECIMENOrdering Facility: [facility] Address: [address] [place] [address] Performed By: #### 5 8410-2 ####[facility] [id number] [place] [address] [place] MCV (RBC) [Entitic vol] 86.5 fL Normal 80.0-100.0 [facility] Comment on above: Order Comment: Speci men Type: BLOOD SPECIMENOrdering Facility: [facility] Address: [address] [place] [address] Performed By: #### 5 8410-2 ####[facility] [id number] [place] [address] [place] Nucleated RBC (Bld) [#/Vol] 10*3/uL Normal <0.01 [facility] Comment on above: Order Comment: Speci men Type: BLOOD SPECIMENOrdering Facility: [facility] Address: [address] [place] [address] Performed By: #### 5 8410-2 ####[facility] [id number] [place] [address] [place] Platelet mean volume (Bld) [Entitic vol] 9.4 fL Normal 9.0-12.7 [facility] Comment on above: Order Comment: Speci men Type: BLOOD SPECIMENOrdering Facility: [facility] Address: [address] [place] [address] Performed By: #### 5 8410-2 ####[facility] [id number] [place] [address] [place] Platelets (Bld) [#/Vol] 215 10*3/uL Normal 150-400 [facility] Comment on above: Order Comment: Speci men Type: BLOOD SPECIMENOrdering Facility: [facility] Address: [address] [place] [address] Performed By: #### 5 8410-2 ####[facility] [id number] [place] [address] [place] RBC (Bld) [#/Vol] 3.63 10*6/uL Low 4.20-6.00 [facility] Comment on above: Order Comment: Speci men Type: BLOOD SPECIMENOrdering Facility: [facility] Address: [address] [place] [address] Performed By: #### 5 8410-2 ####[facility] [id number] [place] [address] [place] WBC (Bld) [#/Vol] 8.67 10*3/uL Normal 3.70-11.00 [facility] Comment on above: Order Comment: Speci men Type: BLOOD SPECIMENOrdering Facility: [facility] Address: [address] [place] [address] Performed By: #### 5 8410-2 ####[facility] [id number] [place] [address] [place] CNCOon 11-07-2023 CNCO Letter Text Normal [facility] CNDSon 11-07-2023 CNDS HNO ID: [id number] Author: SAMUEL ROBIN MD Service: General Surgery [...] PSH who presents as a transfer to [facility] from [facility] ED for further management of small bowel obstruction. Given patient's baseline cognitive status, NGT difficult to maintain. He was admitted to the [facility] under care of general surgery and was taken to the OR the following morning for diagnostic laparoscopy. Intra-operative findings demonstrated no adhesins, no apparent hernias, dilated small/large bowel, redundant sigmoid c/f volvulus, easily reduced. After recovering in the PACU, he was taken to the [facility] with NGT in place. Patient arrived to [facility] with 8 Fr pediatric haskins catheter in [...] in home regimen. Stable for discharge to custodial. Neurology Recommendations on Discharge: - Discharge on anti-epileptic medications as prescribed - Please schedule outpatient follow-up with epilepsy - Please order outpatient MRI without contrast (3T epilepsy protocol) to be done prior to epilepsy appointment Active Hospital Problems Diagnosis Date Noted Oropharyngeal dysphagia 11/06/2023 Epilepsy ([facility]) 11/06/2023 S/P laparoscopy 11/05/2023 Acute postoperative pain 11/05/2023 Obesity, Class I, BMI 30-34.9 11/02/2023 Developmental non-verbal disorder Obsessive-compulsive disorder 09/16/2018 Moderate intellectual disability 09/16/2018 Hypothyroidism 09/16/2018 Bipolar disorder ([facility]) 09/16/2018 Resolved Hospital Problems Diagnosis Date Noted Date Resolved SBO (small bowel obstruction) ([facility]) 10/28/2023 10/31/2023 Transitions of Care Critical Issues: Follow up with Dr. Fairbanks MRI as outpatient and follow up with Neurology in 2 weeks LABS AND PROCEDURES PENDING AT DISCHARGE: No pending results. CONSULTING TEAMS DURING HOSPIT (more content not included)... Normal [facility] CONSULT PROGon 11-07-2023 CONSULT PROG HNO ID: [id number] Author: BRUCE RESENDIZ MD Service: Neurology General [...] November 06, 2023 TIME: 8:36 AM Normal [facility] Magnesium SerPl-mCncon 11-06 Magnesium [Mass/Vol] 2.1 mg/dL Normal 1.7-2.3 [facility] Comment on above: Order Comment: Speci men Type: BLOOD SPECIMEN Ordering Facility: [facility] Address: [address] [place] [address] Performed By: #### 2 4321-2, 94576-0, 2777-1 #### [facility] CLIA [id number] [address] [place] [address] [place] [address] [place] NURSING PROGon 11-07-2023 NURSING PROG HNO ID: [id number] Author: MAYANK READ RN Service: Nursing Author Type: Registered Nurse Type: Nursing Progress Note Filed: 11/07/2023 14:53 Note Text: Pt is discharged to a custodial, coal yard supervisor Magi just arrived to pick up man. Reviewed discharge paper works and handed it to the coal yard supervisor. IV removed, pt tolerated. EEG removed by seating and mobility technologist. Normal [facility] NUTRITIONon 11-07-2023 NUTRITION HNO ID: [id number] Author: RAFAELA COOL DTR Service: Nutrition Therapy Author Type: Job Compositor Type: Nutrition Filed: 11/07/2023 13:38 Note Text: NUTRITION THERAPY SUPERVISOR CIGAR MAKING MACHINE NOTE SERVICE DATE: 11/07/2023 SERVICE TIME: 1000 [...] November 07, 2023 TIME: 1:38 PM Normal [facility] Phosphate SerPl-mCncon 11-06 Phosphate [Mass/Vol] 4.1 mg/dL Normal 2.7-4.8 [facility] Comment on above: Order Comment: Speci men Type: BLOOD SPECIMEN Ordering Facility: [facility] Address: [address] [place] [address] Performed By: #### 2 4321-2, 34225-6, 2777-1 #### [facility] CLIA [id number] [address] [place] [address] [place] [address] [place] Basic metabolic 2000 panelon 11-06-2023 Anion gap [Moles/Vol] 16 mmol/L Normal 9-18 [facility] Comment on above: Order Comment: Speci men Type: BLOOD SPECIMEN Ordering Facility: [facility] Address: [address] [place] [address] Performed By: #### 2 4321-2, , 2776-08 #### [facility] CLIA [id number] [address] [place] [address] [place] Calcium [Mass/Vol] 8.9 mg/dL Normal 8.5-10.2 [facility] Comment on above: Order Comment: Speci men Type: BLOOD SPECIMEN Ordering Facility: [facility] Address: [address] [place] [address] Performed By: #### 2 4321-2, , 2776-08 #### [facility] CLIA [id number] [address] [place] [address] [place] Chloride [Moles/Vol] 112 mmol/L High 97-105 [facility] Comment on above: Order Comment: Speci men Type: BLOOD SPECIMEN Ordering Facility: [facility] Address: [address] [place] [address] Performed By: #### 2 4321-2, , 2776-08 #### [facility] CLIA [id number] [address] [place] [address] [place] CO2 [Moles/Vol] 18 mmol/L Low 22-30 [facility] Comment on above: Order Comment: Speci men Type: BLOOD SPECIMEN Ordering Facility: [facility] Address: [address] [place] [address] Performed By: #### 2 4321-2, , 2776-08 #### [facility] CLIA [id number] [address] [place] [address] [place] Creatinine [Mass/Vol] 0.69 mg/dL Low 0.73-1.22 [facility] Comment on above: Order Comment: Sana zuñiga Type: BLOOD SPECIMEN Ordering Facility: [facility] Address: [address] [place] [address] Performed By: #### 2 4321-2, , 2776-08 #### [facility] CLIA [id number] [address] [place] [address] [place] Creatinine and Glomerular filtration rate.predicted panel (S/P/Bld) 127 mL/min/1.73m??? Normal >=60 [facility] Comment on above: Order Comment: Sana zuñiga Type: BLOOD SPECIMEN Ordering Facility: [facility] Address: [address] [place] [address] Result Comment: Lor mated Glomerular Filtration Rate [...] By: #### 2 4321-2, , 2776-08 #### [facility] CLIA [id number] [address] [place] [address] [place] Glucose [Mass/Vol] 83 mg/dL Normal 74-99 [facility] Comment on above: Order Comment: Sana zuñiga Type: BLOOD SPECIMEN Ordering Facility: [facility] Address: [address] [place] [address] Result Comment: The [place] [employer] (ADA) provides guidance for cutoff [...] Standards of Medical Care in Diabetes 2016, [place] [employer]. Diabetes Care. 2016.39(Suppl 1). Performed By: #### 2 4321-2, , 2776-08 #### [facility] CLIA [id number] [address] [place] [address] [place] Potassium [Moles/Vol] 4.9 mmol/L Normal 3.7-5.1 [facility] Comment on above: Order Comment: Speci men Type: BLOOD SPECIMEN Ordering Facility: [facility] Address: [address] [place] [address] Performed By: #### 2 4321-2, , 2776-08 #### [facility] CLIA [id number] [address] [place] [address] [place] Sodium [Moles/Vol] 146 mmol/L High 136-144 [facility] Comment on above: Order Comment: Speci men Type: BLOOD SPECIMEN Ordering Facility: [facility] Address: [address] [place] [address] Performed By: #### 2 432-2, , 2776-08 #### [facility] CLIA [id number] [address] [place] [address] [place] Urea nitrogen [Mass/Vol] 6 mg/dL Low 9-24 [facility] Comment on above: Order Comment: Speci men Type: BLOOD SPECIMEN Ordering Facility: [facility] Address: [address] [place] [address] Performed By: #### 2 4321-2, , 2776-08 #### [facility] CLIA [id number] [address] [place], [place] [address] [place] CBC panel Auto (Bld)on 11-05 Erythrocyte distribution width (RBC) [Ratio] 14.8 % Normal 11.5-15.0 [facility] Comment on above: Order Comment: Speci men Type: BLOOD SPECIMEN Ordering Facility: [facility] Address: [address] [place] [address] Performed By: #### 2 777-1, 46338-8, #### [facility] CLIA [id number] [address] [place] [address] [place] Hematocrit (Bld) [Volume fraction] 31.3 % Low 39.0-51.0 [facility] Comment on above: Order Comment: Speci men Type: BLOOD SPECIMEN Ordering Facility: [facility] Address: [address] [place] [address] Performed By: #### 2 777-1, 44561-8, #### [facility] CLIA [id number] [address] [place] [address] [place] Hemoglobin (Bld) [Mass/Vol] 9.8 g/dL Low 13.0-17.0 [facility] Comment on above: Order Comment: Speci men Type: BLOOD SPECIMEN Ordering Facility: [facility] Address: [address] [place] [address] Performed By: #### 2 777-1, , #### [facility] CLIA [id number] [address] [place] [address] [place] MCH (RBC) [Entitic mass] 26.4 pg Normal 26.0-34.0 [facility] Comment on above: Order Comment: Speci men Type: BLOOD SPECIMEN Ordering Facility: [facility] Address: [address] [place] [address] Performed By: #### 2 777-1, 70186-4, #### [facility] CLIA [id number] [address] [place], [place] [address] [place] MCHC (RBC) [Mass/Vol] 31.3 g/dL Normal 30.5-36.0 [facility] Comment on above: Order Comment: Speci men Type: BLOOD SPECIMEN Ordering Facility: [facility] Address: [address] [place] [address] Performed By: #### 2 777-1, 16617-3, #### [facility] CLIA [id number] [address] [place] [address] [place] MCV (RBC) [Entitic vol] 84.4 fL Normal 80.0-100.0 [facility] Comment on above: Order Comment: Speci men Type: BLOOD SPECIMEN Ordering Facility: [facility] Address: [address] [place] [address] Performed By: #### 2 777-1, 44128-7, #### [facility] CLIA [id number] [address] [place] [address] [place] Nucleated RBC (Bld) [#/Vol] 10*3/uL Normal <0.01 [facility] Comment on above: Order Comment: Speci men Type: BLOOD SPECIMEN Ordering Facility: [facility] Address: [address] [place] [address] Performed By: #### 2 777-1, 24906-2, #### [facility] CLIA [id number] [address] [place] [address] [place] Platelet mean volume (Bld) [Entitic vol] 8.9 fL Low 9.0-12.7 [facility] Comment on above: Order Comment: Speci men Type: BLOOD SPECIMEN Ordering Facility: [facility] Address: [address] [place] [address] Performed By: #### 2 777-1, 24900-2, #### [facility] CLIA [id number] [address] [place] [address] [place] Platelets (Bld) [#/Vol] 244 10*3/uL Normal 150-400 [facility] Comment on above: Order Comment: Speci men Type: BLOOD SPECIMEN Ordering Facility: [facility] Address: [address] [place] [address] Performed By: #### 2 777-1, 58260-9, #### [facility] CLIA [id number] [address] [place] [address] [place] RBC (Bld) [#/Vol] 3.71 10*6/uL Low 4.20-6.00 [facility] Comment on above: Order Comment: Speci men Type: BLOOD SPECIMEN Ordering Facility: [facility] Address: [address] [place] [address] Performed By: #### 2 777-1, 53476-7, #### [facility] CLIA [id number] [address] [place] [address] [place] WBC (Bld) [#/Vol] 7.59 10*3/uL Normal 3.70-11.00 [facility] Comment on above: Order Comment: Speci men Type: BLOOD SPECIMEN Ordering Facility: [facility] Address: [address] [place] [address] Performed By: #### 2 777-1, 78033-4, #### [facility] CLIA [id number] [address] [place] [address] [place] CONSULT PROGon 11-06-2023 CONSULT PROG HNO ID: [id number] Author: KIM BHAKTA MD Service: Neurology General [...] for now. Kim Bhakta MD Staff Neurologist [facility] Normal [facility] Magnesium SerPl-mCncon 11-05 Magnesium [Mass/Vol] 2.3 mg/dL Normal 1.7-2.3 [facility] Comment on above: Order Comment: Sana zuñiga Type: BLOOD SPECIMEN Ordering Facility: [facility] Address: [address] [place] [address] Performed By: #### 2 4321-2, 25184-0, 2777-1 #### [facility] CLIA [id number] [address] [place], [place] [address] [address] [place] Phosphate SerPl-mCncon 11-05 Phosphate [Mass/Vol] 4.1 mg/dL Normal 2.7-4.8 [facility] Comment on above: Order Comment: Sana zuñiga Type: BLOOD SPECIMEN Ordering Facility: [facility] Address: [address] [place] [address] Performed By: #### 2 4321-2, 28121-2, 2777-1 #### [facility] CLIA [id number] [address] [place], [place] [address] [place] THERAPY NTon 11-06-2023 THERAPY NT HNO ID: [id number] Author: CHANTELL BELLA CCC-ACCOUNTANCY PROFESSOR Service: Speech/Swallow Author Type: Speech Language Pathologist Type: Therapy (PT/OT/Speech/Resp) Filed: 11/06/2023 10:28 Note Text: [facility] Speech Pathology - [facility] Bedside Swallow Evaluation SERVICE DATE: 11/06/2023 ROOM: [place] [address] IMPRESSIONS: Limited bedside swallowing evaluation as patient [...] assessment. PLAN: Page with concerns/questions. Chantell Bella CCC-ACCOUNTANCY PROFESSOR Pager # [phone] BRIEF DIAGNOSIS AND HISTORY per General Surgery HANDP 3-10-2024: Johnny Devine is a 33 year old [...] discussed with: MIRIAM adkins SIGNATURE: Chantell Bella CCC-ACCOUNTANCY PROFESSOR PATIENT NAME: Johnny Devine DATE: November 06, 2023 TIME: 10:12 AM PAGER: [phone] [facility] [facility] Basic metabolic 2000 panelon 11-05-2023 Anion gap [Moles/Vol] 7 mmol/L Low - [facility] Comment on above: Order Comment: Speci men Type: BLOOD SPECIMEN Ordering Facility: [facility] Address: [address] [place] [address] Performed By: #### 5 7021-8 #### [facility] CLIA [id number] [address] [place] [address] [place] Calcium [Mass/Vol] 7.6 mg/dL Low 8.5-10.2 [facility] Comment on above: Order Comment: Speci men Type: BLOOD SPECIMEN Ordering Facility: [facility] Address: [address] [place] [address] Performed By: #### 5 7021-8 #### [facility] CLIA [id number] [address] [place] [address] [place] Chloride [Moles/Vol] 112 mmol/L High 97-105 [facility] Comment on above: Order Comment: Speci men Type: BLOOD SPECIMEN Ordering Facility: [facility] Address: [address] [place] [address] Performed By: #### 5 7021-8 #### [facility] CLIA [id number] [address] [place] [address] [place] CO2 [Moles/Vol] 23 mmol/L Normal 22-30 [facility] Comment on above: Order Comment: Speci men Type: BLOOD SPECIMEN Ordering Facility: [facility] Address: [address] [place] [address] Performed By: #### 5 7021-8 #### [facility] CLIA [id number] [address] [place] [address] [place] Creatinine [Mass/Vol] 0.64 mg/dL Low 0.73-1.22 [facility] Comment on above: Order Comment: Speci men Type: BLOOD SPECIMEN Ordering Facility: [facility] Address: [address] [place] [address] Performed By: #### 5 7021-8 #### [facility] CLIA [id number] [address] [place] [address] [place] Creatinine and Glomerular filtration rate.predicted panel (S/P/Bld) 130 mL/min/1.73m??? Normal >=60 [facility] Comment on above: Order Comment: Sana zuñiga Type: BLOOD SPECIMEN Ordering Facility: [facility] Address: [address] [place] [address] Result Comment: Lor mated Glomerular Filtration Rate [...] GFR. Performed By: #### 5 7021-8 #### [facility] CLIA [id number] [address] [place] [address] [place] Glucose [Mass/Vol] 96 mg/dL Normal 74-99 [facility] Comment on above: Order Comment: Sana zuñiga Type: BLOOD SPECIMEN Ordering Facility: [facility] Address: [address] [place] [address] Result Comment: The [place] [employer] (ADA) provides guidance for cutoff [...] Standards of Medical Care in Diabetes 2016, [place] [employer]. Diabetes Care. 2016.39(Suppl 1). Performed By: #### 5 7021-8 #### [facility] CLIA [id number] [address] [place] [address] [place] Potassium [Moles/Vol] 4.2 mmol/L Normal 3.7-5.1 [facility] Comment on above: Order Comment: Speci men Type: BLOOD SPECIMEN Ordering Facility: [facility] Address: [address] [place] [address] Performed By: #### 5 7021-8 #### [facility] CLIA [id number] [address] [place] [address] [place] Sodium [Moles/Vol] 142 mmol/L Normal 136-144 [facility] Comment on above: Order Comment: Speci men Type: BLOOD SPECIMEN Ordering Facility: [facility] Address: [address] [place] [address] Performed By: #### 5 7021-8 #### [facility] CLIA [id number] [address] [place] [address] [place] Urea nitrogen [Mass/Vol] 5 mg/dL Low 9-24 [facility] Comment on above: Order Comment: Speci men Type: BLOOD SPECIMEN Ordering Facility: [facility] Address: [address] [place] [address] Performed By: #### 5 7021-8 #### [facility] CLIA [id number] [address] [place] [address] [place] CBC panel Auto (Bld)on 11-04 Erythrocyte distribution width (RBC) [Ratio] 14.6 % Normal 11.5-15.0 [facility] Comment on above: Order Comment: Speci men Type: BLOOD SPECIMENOrdering Facility: [facility] Address: [address] [place] [address] Performed By: #### 5 8410-2 ####[facility] [id number] [place] [address] [place] Hematocrit (Bld) [Volume fraction] 30.8 % Low 39.0-51.0 [facility] Comment on above: Order Comment: Speci men Type: BLOOD SPECIMENOrdering Facility: [facility] Address: [address] [place] [address] Performed By: #### 5 8410-2 ####[facility] [id number] [place] [address] [place] Hemoglobin (Bld) [Mass/Vol] 9.7 g/dL Low 13.0-17.0 [facility] Comment on above: Order Comment: Speci men Type: BLOOD SPECIMENOrdering Facility: [facility] Address: [address] [place] [address] Performed By: #### 5 8410-2 ####[facility] [id number] [place] [address] [place] MCH (RBC) [Entitic mass] 26.5 pg Normal 26.0-34.0 [facility] Comment on above: Order Comment: Speci men Type: BLOOD SPECIMENOrdering Facility: [facility] Address: [address] [place] [address] Performed By: #### 5 8410-2 ####[facility] [id number] [place] [address] [place] MCHC (RBC) [Mass/Vol] 31.5 g/dL Normal 30.5-36.0 [facility] Comment on above: Order Comment: Speci men Type: BLOOD SPECIMENOrdering Facility: [facility] Address: [address] [place] [address] Performed By: #### 5 8410-2 ####[facility] [id number] [place] [address] [place] MCV (RBC) [Entitic vol] 84.2 fL Normal 80.0-100.0 [facility] Comment on above: Order Comment: Speci men Type: BLOOD SPECIMENOrdering Facility: [facility] Address: [address] [place] [address] Performed By: #### 5 8410-2 ####[facility] [id number] [place] [address] [place] Nucleated RBC (Bld) [#/Vol] 10*3/uL Normal <0.01 [facility] Comment on above: Order Comment: Speci men Type: BLOOD SPECIMENOrdering Facility: [facility] Address: [address] [place] [address] Performed By: #### 5 8410-2 ####[facility] [id number] [place] [address] [place] Platelet mean volume (Bld) [Entitic vol] 9.1 fL Normal 9.0-12.7 [facility] Comment on above: Order Comment: Speci men Type: BLOOD SPECIMENOrdering Facility: [facility] Address: [address] [place] [address] Performed By: #### 5 8410-2 ####[facility] [id number] [place] [address] [place] Platelets (Bld) [#/Vol] 205 10*3/uL Normal 150-400 [facility] Comment on above: Order Comment: Speci men Type: BLOOD SPECIMENOrdering Facility: [facility] Address: [address] [place] [address] Performed By: #### 5 8410-2 ####[facility] [id number] [place] [address] [place] RBC (Bld) [#/Vol] 3.66 10*6/uL Low 4.20-6.00 [facility] Comment on above: Order Comment: Speci men Type: BLOOD SPECIMENOrdering Facility: [facility] Address: [address] [place] [address] Performed By: #### 5 8410-2 ####[facility] [id number] [place] [address] [place] WBC (Bld) [#/Vol] 7.54 10*3/uL Normal 3.70-11.00 [facility] Comment on above: Order Comment: Speci men Type: BLOOD SPECIMENOrdering Facility: [facility] Address: [address] [place] [address] Performed By: #### 5 8410-2 ####[facility] [id number] [place] [address] [place] [facility] Magnesium [Mass/Vol] 2.0 mg/dL Normal 1.7-2.3 [facility] Comment on above: Order Comment: Speci men Type: BLOOD SPECIMEN Ordering Facility: [facility] Address: [address] [place] [address] Performed By: #### 5 7021-8 #### [facility] CLIA [id number] [address] [place] [address] [place] Phosphate SerPl-mCncon 11-04 Phosphate [Mass/Vol] 3.1 mg/dL Normal 2.7-4.8 [facility] Comment on above: Order Comment: Speci men Type: BLOOD SPECIMEN Ordering Facility: [facility] Address: [address] [place] [address] Performed By: #### 5 7021-8 #### [facility] CLIA [id number] [address] [place] [address] [place] THERAPY NTon 11-05-2023 THERAPY NT HNO ID: [id number] Author: ANA LUISA MORALES, PT Service: ? Author Type: Physical Therapist Type: Therapy (PT/OT/Speech/Resp) Filed: 11/05/2023 15:46 Note Text: Physical Therapy Evaluation Summary SERVICE DATE: 11/05/2023 SERVICE TIME: 1459 to 1532 ROOM: [place] [address] PT 6 Clicks Score: 18 DISCHARGE RECOMMENDATIONS Home Recommended Discharge Disposition Comments: Anticipate patient will continue to progress in mobility. Anticipate return to custodial as long as able to provide current [...] Lives With: Other: See Comment Comments: senior care ( intermediate care ) Assistance Available: 24-Hour PRIOR FUNCTIONAL LEVEL Required Assistance Assistance Required With: Cleaning, Laundry, Meals, Safety, Self Care, Shopping, Transportation Patient non-verbal at baseline. Aunt (cate) present during session to obtain PLOF. Patient lives at custodial. I with mobility. 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) frequent verbal cues Gait Contact Guard Assistance [...] November 05, 2023 TIME: 3:46 PM Normal [facility] Basic metabolic 2000 panelon 11-04-2023 Anion gap [Moles/Vol] 9 mmol/L Normal - [facility] Comment on above: Order Comment: Speci men Type: BLOOD SPECIMEN Ordering Facility: [facility] Address: [address] [place] [address] Performed By: #### 2 777-1, 60186-5, #### [facility] CLIA [id number] [address] [place] [address] [place] Calcium [Mass/Vol] 7.7 mg/dL Low 8.5-10.2 [facility] Comment on above: Order Comment: Speci men Type: BLOOD SPECIMEN Ordering Facility: [facility] Address: [address] [place] [address] Performed By: #### 2 777-1, 84579-3, #### [facility] CLIA [id number] [address] [place] [address] [place] Chloride [Moles/Vol] 112 mmol/L High 97-105 [facility] Comment on above: Order Comment: Speci men Type: BLOOD SPECIMEN Ordering Facility: [facility] Address: [address] [place] [address] Performed By: #### 2 777-1, 10277-5, #### [facility] CLIA [id number] [address] [place] [address] [place] CO2 [Moles/Vol] 24 mmol/L Normal 22-30 [facility] Comment on above: Order Comment: Speci men Type: BLOOD SPECIMEN Ordering Facility: [facility] Address: [address] [place] [address] Performed By: #### 2 777-1, 06576-6, #### [facility] CLIA [id number] [address] [place] [address] [place] Creatinine [Mass/Vol] 0.70 mg/dL Low 0.73-1.22 [facility] Comment on above: Order Comment: Speci men Type: BLOOD SPECIMEN Ordering Facility: [facility] Address: [address] [place] [address] Performed By: #### 2 777-1, 18209-3, #### [facility] CLIA [id number] [address] [place] [address] [place] Creatinine and Glomerular filtration rate.predicted panel (S/P/Bld) 126 mL/min/1.73m??? Normal >=60 [facility] Comment on above: Order Comment: Speci men Type: BLOOD SPECIMEN Ordering Facility: [facility] Address: [address] [place] [address] Result Comment: Lor mated Glomerular Filtration Rate [...] Performed By: #### 2 777-1, , #### [facility] CLIA [id number] [address] [place] [address] [place] Glucose [Mass/Vol] 79 mg/dL Normal 74-99 [facility] Comment on above: Order Comment: Sana zuñiga Type: BLOOD SPECIMEN Ordering Facility: [facility] Address: [address] [place] [address] Result Comment: The [place] [employer] (ADA) provides guidance for cutoff [...] Standards of Medical Care in Diabetes 2016, [place] [employer]. Diabetes Care. 2016.39(Suppl 1). Performed By: #### 2 777-1, , #### [facility] CLIA [id number] [address] [place] [address] [place] Potassium [Moles/Vol] 3.6 mmol/L Low 3.7-5.1 [facility] Comment on above: Order Comment: Sana zuñiga Type: BLOOD SPECIMEN Ordering Facility: [facility] Address: [address] [place] [address] Performed By: #### 2 777-1, , #### [facility] CLIA [id number] [address] [place] [address] [place] Sodium [Moles/Vol] 145 mmol/L High 136-144 [facility] Comment on above: Order Comment: Speci men Type: BLOOD SPECIMEN Ordering Facility: [facility] Address: [address] [place] [address] Performed By: #### 2 777-1, 17265-5, #### [facility] CLIA [id number] [address] [place] [address] [place] Urea nitrogen [Mass/Vol] 4 mg/dL Low 9-24 [facility] Comment on above: Order Comment: Speci men Type: BLOOD SPECIMEN Ordering Facility: [facility] Address: [address] [place] [address] Performed By: #### 2 777-1, 88949-2, #### [facility] CLIA [id number] [address] [place] [address] [place] CBC panel Auto (Bld)on 11-03 Erythrocyte distribution width (RBC) [Ratio] 14.3 % Normal 11.5-15.0 [facility] Comment on above: Order Comment: Speci men Type: BLOOD SPECIMEN Ordering Facility: [facility] Address: [address] [place] [address] Performed By: #### 2 777-1, , #### [facility] CLIA [id number] [address] [place] [address] [place] Hematocrit (Bld) [Volume fraction] 33.4 % Low 39.0-51.0 [facility] Comment on above: Order Comment: Speci men Type: BLOOD SPECIMEN Ordering Facility: [facility] Address: [address] [place] [address] Performed By: #### 2 777-1, 60447-6, #### [facility] CLIA [id number] [address] [place] [address] [place] Hemoglobin (Bld) [Mass/Vol] 10.5 g/dL Low 13.0-17.0 [facility] Comment on above: Order Comment: Speci men Type: BLOOD SPECIMEN Ordering Facility: [facility] Address: [address] [place] [address] Performed By: #### 2 777-1, 74482-9, #### [facility] CLIA [id number] [address] [place] [address] [place] MCH (RBC) [Entitic mass] 26.4 pg Normal 26.0-34.0 [facility] Comment on above: Order Comment: Speci men Type: BLOOD SPECIMEN Ordering Facility: [facility] Address: [address] [place] [address] Performed By: #### 2 777-1, 83439-9, #### [facility] CLIA [id number] [address] [place] [address] [place] MCHC (RBC) [Mass/Vol] 31.4 g/dL Normal 30.5-36.0 [facility] Comment on above: Order Comment: Speci men Type: BLOOD SPECIMEN Ordering Facility: [facility] Address: [address] [place] [address] Performed By: #### 2 777-1, 94727-9, #### [facility] CLIA [id number] [address] [place] [address] [place] MCV (RBC) [Entitic vol] 84.1 fL Normal 80.0-100.0 [facility] Comment on above: Order Comment: Speci men Type: BLOOD SPECIMEN Ordering Facility: [facility] Address: [address] [place] [address] Performed By: #### 2 777-1, 05903-4, #### [facility] CLIA [id number] [address] [place] [address] [place] Nucleated RBC (Bld) [#/Vol] 10*3/uL Normal <0.01 [facility] Comment on above: Order Comment: Speci men Type: BLOOD SPECIMEN Ordering Facility: [facility] Address: [address] [place] [address] Performed By: #### 2 777-1, 63081-1, #### [facility] CLIA [id number] [address] [place] [address] [place] Platelet mean volume (Bld) [Entitic vol] 8.9 fL Low 9.0-12.7 [facility] Comment on above: Order Comment: Speci men Type: BLOOD SPECIMEN Ordering Facility: [facility] Address: [address] [place] [address] Performed By: #### 2 777-1, 20492-3, #### [facility] CLIA [id number] [address] [place] [address] [place] Platelets (Bld) [#/Vol] 242 10*3/uL Normal 150-400 [facility] Comment on above: Order Comment: Speci men Type: BLOOD SPECIMEN Ordering Facility: [facility] Address: [address] [place] [address] Performed By: #### 2 777-1, 27943-2, #### [facility] CLIA [id number] [address] [place] [address] [place] RBC (Bld) [#/Vol] 3.97 10*6/uL Low 4.20-6.00 [facility] Comment on above: Order Comment: Speci men Type: BLOOD SPECIMEN Ordering Facility: [facility] Address: [address] [place] [address] Performed By: #### 2 777-1, 28269-6, #### [facility] CLIA [id number] [address] [place] [address] [place] WBC (Bld) [#/Vol] 9.36 10*3/uL Normal 3.70-11.00 [facility] Comment on above: Order Comment: Specdeshawn zuñiga Type: BLOOD SPECIMEN Ordering Facility: [facility] Address: [address] [place] [address] Performed By: #### 2 777-1, 12052-8, #### [facility] CLIA [id number] [address] [place] [address] [place] Magnesium SerPl-mCncon 11-03 Magnesium [Mass/Vol] 2.0 mg/dL Normal 1.7-2.3 [facility] Comment on above: Order Comment: Sana zuiñga Type: BLOOD SPECIMEN Ordering Facility: [facility] Address: [address] [place] [address] Performed By: #### 2 777-1, 65745-6, #### [facility] CLIA [id number] [address] [place] [address] [place] NUTRITIONon 11-04-2023 NUTRITION HNO ID: [id number] Author: SAURABH VAZQUEZ DTR Service: Nutrition Therapy Author Type: Job Compositor Type: Nutrition Filed: 11/04/2023 14:35 Note Text: 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 Plan of Care: Follow-Up: [facility] Reassessment Nursing Admission Assessment Malnutrition Score: 0 [...] November 04, 2023 TIME: 2:25 PM Normal [facility] Phosphate SerPl-mCncon 11-03 Phosphate [Mass/Vol] 2.6 mg/dL Low 2.7-4.8 [facility] Comment on above: Order Comment: Speci men Type: BLOOD SPECIMEN Ordering Facility: [facility] Address: [address] [place] [address] Performed By: #### 2 777-1, 99856-6, 34661-1 #### [facility] CLIA [id number] [address] [place] [address] [place] Valproate Free SerPl-mCncon 11-04-2023 Valproate Free [Mass/Vol] 11.3 ug/mL Normal 4.0-30.0 [facility] Comment on above: Order Comment: Speci men Type: BLOOD SPECIMENOrdering Facility: [facility] Address: [address] [place] [address] Result Comment: Refe rence ranges and high/low indicator flags are provided as general guidelines only. The treating physician must determine appropriate target levels/dosing based on the specific clinical situation. This test was developed and its performance characteristics determined by [facility]'s [facility] Pathology and Laboratory Medicine [place] (-[facility]). It has not been cleared or approved by the FDA. [facility] is regulated under CLIA as qualified to perform high-complexity testing. This test is used for clinical purposes. It should not be regarded as investigational or for research. Performed By: #### 4 087-3 ####[facility] [id number] [place] [address] [place] Valproate SerPl-mCncon 11-03 Valproate [Mass/Vol] 49.2 ug/mL Low 50.0-100.0 [facility] Comment on above: Order Comment: Speci men Type: BLOOD SPECIMEN Ordering Facility: [facility] Address: [address] [place] [address] Result Comment: Refe rence ranges and high/low indicator flags are provided as general guidelines only. The treating physician must determine appropriate target levels/dosing based on the specific clinical situation. Performed By: #### 2 4321-2, 73946-8, 2777-1 #### [facility] CLIA [id number] [address] [place] [address] [place] Basic metabolic 2000 panelon 11-03-2023 Anion gap [Moles/Vol] 11 mmol/L Normal 9-18 [facility] Comment on above: Order Comment: Speci men Type: BLOOD SPECIMEN Ordering Facility: [facility] Address: [address] [place] [address] Performed By: #### 2 777-1, 42252-4, #### [facility] CLIA [id number] [address] [place] [address] [place] Calcium [Mass/Vol] 7.7 mg/dL Low 8.5-10.2 [facility] Comment on above: Order Comment: Speci men Type: BLOOD SPECIMEN Ordering Facility: [facility] Address: [address] [place] [address] Performed By: #### 2 777-1, 73850-1, #### [facility] CLIA [id number] [address] [place] [address] [place] Chloride [Moles/Vol] 112 mmol/L High 97-105 [facility] Comment on above: Order Comment: Speci men Type: BLOOD SPECIMEN Ordering Facility: [facility] Address: [address] [place] [address] Performed By: #### 2 777-1, 56350-0, #### [facility] CLIA [id number] [address] [place], [place] [address] [place] CO2 [Moles/Vol] 22 mmol/L Normal 22-30 [facility] Comment on above: Order Comment: Sana zuñiga Type: BLOOD SPECIMEN Ordering Facility: [facility] Address: [address] [place] [address] Performed By: #### 2 777-1, 77397-3, #### [facility] CLIA [id number] [address] [place] [address] [place] Creatinine [Mass/Vol] 0.68 mg/dL Low 0.73-1.22 [facility] Comment on above: Order Comment: Speci men Type: BLOOD SPECIMEN Ordering Facility: [facility] Address: [address] [place] [address] Performed By: #### 2 777-1, 46395-1, #### [facility] [facility] CLIA [id number] [address] [place] [address] [place] Creatinine and Glomerular filtration rate.predicted panel (S/P/Bld) 127 mL/min/1.73m??? Normal >=60 [facility] Comment on above: Order Comment: Sana zuñiga Type: BLOOD SPECIMEN Ordering Facility: [facility] Address: [address] [place] [address] Result Comment: Lor mated Glomerular Filtration Rate [...] actual GFR. Performed By: #### 2 777-1, 19866-1, #### [facility] CLIA [id number] [address] [place] [address] [place] Glucose [Mass/Vol] 85 mg/dL Normal 74-99 [facility] Comment on above: Order Comment: Speci men Type: BLOOD SPECIMEN Ordering Facility: [facility] Address: [address] [place], [place] [address] Result Comment: The [place] [employer] (ADA) provides guidance for cutoff [...] Standards of Medical Care in Diabetes 2016, [place] [employer]. Diabetes Care. 2016.39(Suppl 1). Performed By: #### 2 777-1, 51379-0, #### [facility] CLIA [id number] [address] [place] [address] [place] Potassium [Moles/Vol] 3.4 mmol/L Low 3.7-5.1 [facility] Comment on above: Order Comment: Sana zuñiga Type: BLOOD SPECIMEN Ordering Facility: [facility] Address: [address] [place] [address] Performed By: #### 2 777-1, , #### [facility] CLIA [id number] [address] [place] [address] [place] Sodium [Moles/Vol] 145 mmol/L High 136-144 [facility] Comment on above: Order Comment: Sana zuñiga Type: BLOOD SPECIMEN Ordering Facility: [facility] Address: [address] [place] [address] Performed By: #### 2 777-1, , #### [facility] CLIA [id number] [address] [place] [address] [place] Urea nitrogen [Mass/Vol] 5 mg/dL Low 9-24 [facility] Comment on above: Order Comment: Speci men Type: BLOOD SPECIMEN Ordering Facility: [facility] Address: [address] [place] [address] Performed By: #### 2 777-1, 37370-9, 67542-7 #### [facility] CLIA [id number] [address] [place] [address] [place] CBC W Auto Differential pane l (Bld)on 11-03-2023 Basophils (Bld) [#/Vol] 10*3/uL Normal <0.11 [facility] Comment on above: Order Comment: Speci men Type: BLOOD SPECIMEN Ordering Facility: [facility] Address: [address] [place] [address] Performed By: #### 5 7021-8 #### [facility] CLIA [id number] [address] [place] [address] [place] Basophils/100 WBC (Bld) 0.3 % Normal [facility] Comment on above: Order Comment: Speci men Type: BLOOD SPECIMEN Ordering Facility: [facility] Address: [address] [place] [address] Performed By: #### 5 7021-8 #### [facility] CLIA [id number] [address] [place] [address] [place] Differential cell count method Nom (Bld) Auto Normal [facility] Comment on above: Order Comment: Speci men Type: BLOOD SPECIMEN Ordering Facility: [facility] Address: [address] [place] [address] Performed By: #### 5 7021-8 #### [facility] CLIA [id number] [address] [place] [address] [place] Eosinophils (Bld) [#/Vol] 0.25 10*3/uL Normal <0.46 [facility] Comment on above: Order Comment: Speci men Type: BLOOD SPECIMEN Ordering Facility: [facility] Address: [address] [place] [address] Performed By: #### 5 7021-8 #### [facility] CLIA [id number] [address] [place] [address] [place] Eosinophils/100 WBC (Bld) 3.1 % Normal [facility] Comment on above: Order Comment: Speci men Type: BLOOD SPECIMEN Ordering Facility: [facility] Address: [address] [place] [address] Performed By: #### 5 7021-8 #### [facility] CLIA [id number] [address] [place] [address] [place] Erythrocyte distribution width (RBC) [Ratio] 13.7 % Normal 11.5-15.0 [facility] Comment on above: Order Comment: Speci men Type: BLOOD SPECIMEN Ordering Facility: [facility] Address: [address] [place] [address] Performed By: #### 5 7021-8 #### [facility] CLIA [id number] [address] [place] [address] [place] Hematocrit (Bld) [Volume fraction] 29.9 % Low 39.0-51.0 [facility] Comment on above: Order Comment: Speci men Type: BLOOD SPECIMEN Ordering Facility: [facility] Address: [address] [place] [address] Performed By: #### 5 7021-8 #### [facility] CLIA [id number] [address] [place] [address] [place] Hemoglobin (Bld) [Mass/Vol] 9.4 g/dL Low 13.0-17.0 [facility] Comment on above: Order Comment: Speci men Type: BLOOD SPECIMEN Ordering Facility: [facility] Address: [address] [place] [address] Performed By: #### 5 7021-8 #### [facility] CLIA [id number] [address] [place] [address] [place] Immature granulocytes (Bld) [#/Vol] 0.11 10*3/uL High <0.10 [facility] Comment on above: Order Comment: Speci men Type: BLOOD SPECIMEN Ordering Facility: [facility] Address: [address] [place] [address] Performed By: #### 5 7021-8 #### [facility] CLIA [id number] [address] [place] [address] [place] Immature granulocytes/100 WBC (Bld) 1.4 % Normal [facility] Comment on above: Order Comment: Speci men Type: BLOOD SPECIMEN Ordering Facility: [facility] Address: [address] [place] [address] Performed By: #### 5 7021-8 #### [facility] CLIA [id number] [address] [place] [address] [place] Lymphocytes (Bld) [#/Vol] 2.03 10*3/uL Normal 1.00-4.00 [facility] Comment on above: Order Comment: Speci men Type: BLOOD SPECIMEN Ordering Facility: [facility] Address: [address] [place] [address] Performed By: #### 5 7021-8 #### [facility] CLIA [id number] [address] [place] [address] [place] Lymphocytes/100 WBC (Bld) 25.4 % Normal [facility] Comment on above: Order Comment: Speci men Type: BLOOD SPECIMEN Ordering Facility: [facility] Address: [address] [place] [address] Performed By: #### 5 7021-8 #### [facility] CLIA [id number] [address] [place] [address] [place] MCH (RBC) [Entitic mass] 26.5 pg Normal 26.0-34.0 [facility] Comment on above: Order Comment: Speci men Type: BLOOD SPECIMEN Ordering Facility: [facility] Address: [address] [place] [address] Performed By: #### 5 7021-8 #### [facility] CLIA [id number] [address] [place] [address] [place] MCHC (RBC) [Mass/Vol] 31.4 g/dL Normal 30.5-36.0 [facility] Comment on above: Order Comment: Speci men Type: BLOOD SPECIMEN Ordering Facility: [facility] Address: [address] [place] [address] Performed By: #### 5 7021-8 #### [facility] CLIA [id number] [address] [place] [address] [place] MCV (RBC) [Entitic vol] 84.2 fL Normal 80.0-100.0 [facility] Comment on above: Order Comment: Speci men Type: BLOOD SPECIMEN Ordering Facility: [facility] Address: [address] [place] [address] Performed By: #### 5 7021-8 #### [facility] CLIA [id number] [address] [place] [address] [place] Monocytes (Bld) [#/Vol] 0.62 10*3/uL Normal <0.87 [facility] Comment on above: Order Comment: Speci men Type: BLOOD SPECIMEN Ordering Facility: [facility] Address: [address] [place] [address] Performed By: #### 5 7021-8 #### [facility] CLIA [id number] [address] [place] [address] [place] Monocytes/100 WBC (Bld) 7.8 % Normal [facility] Comment on above: Order Comment: Speci men Type: BLOOD SPECIMEN Ordering Facility: [facility] Address: [address] [place] [address] Performed By: #### 5 7021-8 #### [facility] CLIA [id number] [address] [place] [address] [place] Neutrophils (Bld) [#/Vol] 4.96 10*3/uL Normal 1.45-7.50 [facility] Comment on above: Order Comment: Speci men Type: BLOOD SPECIMEN Ordering Facility: [facility] Address: [address] [place] [address] Performed By: #### 5 7021-8 #### [facility] CLIA [id number] [address] [place] [address] [place] Neutrophils/100 WBC (Bld) 62.0 % Normal [facility] Comment on above: Order Comment: Speci men Type: BLOOD SPECIMEN Ordering Facility: [facility] Address: [address] [place] [address] Performed By: #### 5 7021-8 #### [facility] CLIA [id number] [address] [place] [address] [place] Nucleated RBC (Bld) [#/Vol] 10*3/uL Normal <0.01 [facility] Comment on above: Order Comment: Speci men Type: BLOOD SPECIMEN Ordering Facility: [facility] Address: [address] [place] [address] Performed By: #### 5 7021-8 #### [facility] CLIA [id number] [address] [place] [address] [place] Nucleated RBC/100 WBC (Bld) [Ratio] 0.0 /100 WBC Normal [facility] Comment on above: Order Comment: Speci men Type: BLOOD SPECIMEN Ordering Facility: [facility] Address: [address] [place] [address] Performed By: #### 5 7021-8 #### [facility] CLIA [id number] [address] [place] [address] [place] Platelet mean volume (Bld) [Entitic vol] 9.3 fL Normal 9.0-12.7 [facility] Comment on above: Order Comment: Speci men Type: BLOOD SPECIMEN Ordering Facility: [facility] Address: [address] [place] [address] Performed By: #### 5 7021-8 #### [facility] CLIA [id number] [address] [place] [address] [place] Platelets (Bld) [#/Vol] 208 10*3/uL Normal 150-400 [facility] Comment on above: Order Comment: Speci men Type: BLOOD SPECIMEN Ordering Facility: [facility] Address: [address] [place] [address] Performed By: #### 5 7021-8 #### [facility] CLIA [id number] [address] [place] [address] [place] RBC (Bld) [#/Vol] 3.55 10*6/uL Low 4.20-6.00 [facility] Comment on above: Order Comment: Speci men Type: BLOOD SPECIMEN Ordering Facility: [facility] Address: [address] [place] [address] Performed By: #### 5 7021-8 #### [facility] CLIA [id number] [address] [place] [address] [place] WBC (Bld) [#/Vol] 7.99 10*3/uL Normal 3.70-11.00 [facility] Comment on above: Order Comment: Speci men Type: BLOOD SPECIMEN Ordering Facility: [facility] Address: [address] [place] [address] Performed By: #### 5 7021-8 #### [facility] CLIA [id number] [address] [place] [address] [place] CONSULTon 11-03-2023 CONSULT HNO ID: [id number] Author: [facility] MD Service: Neurology General Author Type: Resident [...] is brother, Delbert. Patient lives in a custodial at baseline. Per information written on board [...] (DULCOLAX) 10 mg RECTAL DAILY phenol 1 Tripoli (CHLORASEPTIC) 1 Tripoli MUCOUS MEMBRANE (TOPICAL MOUTH AND THROAT) q 2 H PRN Or benzocaine-menthol 1 Lozenge (CHLORASEPTIC) 1 Lozenge MUCOUS MEMBRANE (TOPICAL MOUTH AND THROAT) q 2 H PRN clomiPRAMINE 75 mg cap(s) (ANAFRANIL) 75 mg ORAL AT BEDTIME lithium carbonate 300 mg cap(s) (ESKALITH) 300 mg ORAL BID sertraline (ZOLOFT (more content not included)... Normal [facility] CT BRAIN WO IVCONon 11-03-19 CT BRAIN WO IVCON * * *Final Report* * * DATE OF EXAM: Nov 03 2023 7:42PM [facility] 0504 - CT BRAIN WO IVCON / [...] reduction techniques were required COMPARISON: None. RESULT: Asset Protection Agent (topogram) images: No additional findings. Post-operative change: [...] No clear evidence of an acute abnormality. Draftsperson: PSCB Transcribe Date/Time: Nov 03 2023 7:43P Dictated by : HERMAN DOWD MD This examination was interpreted and the report reviewed and electronically signed by: HERMAN DOWD MD on Nov 03 2023 7:44PM EST [id number] Normal [facility] [place], Bld SerPl-sCncon [place] [Moles/Vol] 0.5 mmol/L Low 0.6-1.2 [facility] Comment on above: Order Comment: Specdeshawn zuñiga Type: BLOOD SPECIMEN Ordering Facility: [facility] Address: [address] [place] [address] Result Comment: Refe rence ranges and high/low indicator flags are provided as general guidelines only. The treating physician must determine appropriate target levels/dosing based on the specific clinical situation. Performed By: #### 1 4334-7, 4086-5 #### [facility] CLIA [id number] [address] [place] [address] [place] Magnesium SerPl-mCncon 11-02 Magnesium [Mass/Vol] 2.2 mg/dL Normal 1.7-2.3 [facility] Comment on above: Order Comment: Sana zuñiga Type: BLOOD SPECIMEN Ordering Facility: [facility] Address: [address] [place] [address] Performed By: #### 2 777-1, 13208-5, 59647-7 #### [facility] CLIA [id number] [address] [place] [address] [place] Phosphate SerPl-mCncon 11-02 Phosphate [Mass/Vol] 2.5 mg/dL Low 2.7-4.8 [facility] Comment on above: Order Comment: Sana zuñiga Type: BLOOD SPECIMEN Ordering Facility: [facility] Address: [address] [place] [address] Performed By: #### 2 777-1, 94922-3, 96656-5 #### [facility] CLIA [id number] [address] [place] [address] [place] THERAPY NTon 11-03-2023 THERAPY NT HNO ID: [id number] Author: ANKITA BLACKBURN PT, DPT Service: Physical Therapy Author Type: Physical Therapist Type: Therapy (PT/OT/Speech/Resp) Filed: 11/03/2023 13:48 Note Text: PHYSICAL THERAPY MISSED VISIT SERVICE DATE: 11/03/2023 SERVICE TIME: [facility] ROOM: [place] [address] Patient not seen due to Patient Not Available. Another service at bedside upon time of arrival x2 attempts. Will follow up as able/appropriate. SIGNATURE: Ankita Blackburn PT, DPT PATIENT NAME: Johnny Devine DATE: November 03, 2023 TIME: 1:48 PM Normal [facility] Valproate SerPl-mCncon 11-02 Valproate [Mass/Vol] 53.0 ug/mL Normal 50.0-100.0 [facility] Comment on above: Order Comment: Sana zuñiga Type: BLOOD SPECIMEN Ordering Facility: [facility] Address: [address] [place] [address] Result Comment: Refe rence ranges and high/low indicator flags are provided as general guidelines only. The treating physician must determine appropriate target levels/dosing based on the specific clinical situation. Performed By: #### 1 4334-7, 4086-5 #### [facility] CLIA [id number] [address] [place] [address] [place] Basic metabolic 2000 panelon 11-02-2023 Anion gap [Moles/Vol] 8 mmol/L Low 9-18 [facility] Comment on above: Order Comment: Speci men Type: BLOOD SPECIMEN Ordering Facility: [facility] Address: [address] [place], [place] [address] Performed By: #### 2 777-1, 86530-2, #### [facility] CLIA [id number] [address] [place], [place] [address] [place] Calcium [Mass/Vol] 7.7 mg/dL Low 8.5-10.2 [facility] Comment on above: Order Comment: Speci men Type: BLOOD SPECIMEN Ordering Facility: [facility] Address: [address] [place] [address] Performed By: #### 2 777-1, 95211-8, #### [facility] CLIA [id number] [address] [place] [address] [place] Chloride [Moles/Vol] 109 mmol/L High 97-105 [facility] Comment on above: Order Comment: Speci men Type: BLOOD SPECIMEN Ordering Facility: [facility] Address: [address] [place] [address] Performed By: #### 2 777-1, 99809-9, #### [facility] CLIA [id number] [address] [place] [address] [place] CO2 [Moles/Vol] 24 mmol/L Normal 22-30 [facility] Comment on above: Order Comment: Speci men Type: BLOOD SPECIMEN Ordering Facility: [facility] Address: [address] [place] [address] Performed By: #### 2 777-1, 78464-7, #### [facility] CLIA [id number] [address] [place] [address] [place] Creatinine [Mass/Vol] 0.66 mg/dL Low 0.73-1.22 [facility] Comment on above: Order Comment: Speci men Type: BLOOD SPECIMEN Ordering Facility: [facility] Address: [address] [place] [address] Performed By: #### 2 777-1, 65748-2, 38669-4 #### [facility] CLIA [id number] [address] [place] [address] [place] Creatinine and Glomerular filtration rate.predicted panel (S/P/Bld) 129 mL/min/1.73m??? Normal >=60 [facility] Comment on above: Order Comment: Sana zuñiga Type: BLOOD SPECIMEN Ordering Facility: [facility] Address: [address] [place] [address] Result Comment: Lor mated Glomerular Filtration Rate [...] actual GFR. Performed By: #### 2 777-1, 11265-4, #### [facility] CLIA [id number] [address] [place] [address] [place] Glucose [Mass/Vol] 109 mg/dL High 74-99 [facility] Comment on above: Order Comment: Sana zuñiga Type: BLOOD SPECIMEN Ordering Facility: [facility] Address: [address] [place] [address] Result Comment: The [place] [employer] (ADA) provides guidance for cutoff [...] Standards of Medical Care in Diabetes 2016, [place] [employer]. Diabetes Care. 2016.39(Suppl 1). Performed By: #### 2 777-1, 03203-4, #### [facility] CLIA [id number] [address] [place] [address] [place] Potassium [Moles/Vol] 3.5 mmol/L Low 3.7-5.1 [facility] Comment on above: Order Comment: Speci men Type: BLOOD SPECIMEN Ordering Facility: [facility] Address: [address] [place] [address] Performed By: #### 2 777-1, 66971-9, #### [facility] CLIA [id number] [address] [place] [address] [place] Sodium [Moles/Vol] 141 mmol/L Normal 136-144 [facility] Comment on above: Order Comment: Speci men Type: BLOOD SPECIMEN Ordering Facility: [facility] Address: [address] [place] [address] Performed By: #### 2 777-1, 06440-4, #### [facility] CLIA [id number] [address] [place] [address] [place] Urea nitrogen [Mass/Vol] 7 mg/dL Low 9-24 [facility] Comment on above: Order Comment: Speci men Type: BLOOD SPECIMEN Ordering Facility: [facility] Address: [address] [place] [address] Performed By: #### 2 777-1, 28745-2, #### [facility] CLIA [id number] [address] [place], [place] [address] [place] CBC W Auto Differential pane l (Bld)on 11-02-2023 Basophils (Bld) [#/Vol] 0.04 10*3/uL Normal <0.11 [facility] Comment on above: Order Comment: Speci men Type: BLOOD SPECIMEN Ordering Facility: [facility] Address: [address] [place] [address] Performed By: #### 2 4321-2, , 2776-08 #### [facility] CLIA [id number] [address] [place] [address] [place] Basophils/100 WBC (Bld) 0.5 % Normal [facility] Comment on above: Order Comment: Speci men Type: BLOOD SPECIMEN Ordering Facility: [facility] Address: [address] [place] [address] Performed By: #### 2 4321-2, , 2776-08 #### [facility] CLIA [id number] [address] [place] [address] [place] Differential cell count method Nom (Bld) Auto Normal [facility] Comment on above: Order Comment: Speci men Type: BLOOD SPECIMEN Ordering Facility: [facility] Address: [address] [place] [address] Performed By: #### 2 432-2, , 2776-08 #### [facility] CLIA [id number] [address] [place] [address] [place] Eosinophils (Bld) [#/Vol] 0.24 10*3/uL Normal <0.46 [facility] Comment on above: Order Comment: Speci men Type: BLOOD SPECIMEN Ordering Facility: [facility] Address: [address] [place] [address] Performed By: #### 2 4321-2, , 2776-08 #### [facility] CLIA [id number] [address] [place] [address] [place] Eosinophils/100 WBC (Bld) 3.0 % Normal [facility] Comment on above: Order Comment: Speci men Type: BLOOD SPECIMEN Ordering Facility: [facility] Address: [address] [place] [address] Performed By: #### 2 4321-2, , 2776-08 #### [facility] CLIA [id number] [address] [place] [address] [place] Erythrocyte distribution width (RBC) [Ratio] 14.0 % Normal 11.5-15.0 [facility] Comment on above: Order Comment: Speci men Type: BLOOD SPECIMEN Ordering Facility: [facility] Address: [address] [place] [address] Performed By: #### 2 4321-2, , 2776-08 #### [facility] CLIA [id number] [address] [place] [address] [place] Hematocrit (Bld) [Volume fraction] 36.5 % Low 39.0-51.0 [facility] Comment on above: Order Comment: Speci men Type: BLOOD SPECIMEN Ordering Facility: [facility] Address: [address] [place] [address] Performed By: #### 2 4321-2, , 2776-08 #### [facility] CLIA [id number] [address] [place] [address] [place] Hemoglobin (Bld) [Mass/Vol] 11.2 g/dL Low 13.0-17.0 [facility] Comment on above: Order Comment: Speci men Type: BLOOD SPECIMEN Ordering Facility: [facility] Address: [address] [place] [address] Performed By: #### 2 4321-2, , 2776-08 #### [facility] CLIA [id number] [address] [place] [address] [place] Immature granulocytes (Bld) [#/Vol] 0.10 10*3/uL High <0.10 [facility] Comment on above: Order Comment: Speci men Type: BLOOD SPECIMEN [facility] [facility] Address: [address] [place] [address] Performed By: #### 2 4321-2, , 2776-08 #### [facility] CLIA [id number] [address] [place] [address] [place] Immature granulocytes/100 WBC (Bld) 1.3 % Normal [facility] Comment on above: Order Comment: Speci men Type: BLOOD SPECIMEN Ordering Facility: [facility] Address: [address] [place] [address] Performed By: #### 2 4321-2, , 2776-08 #### [facility] CLIA [id number] [address] [place] [address] [place] Lymphocytes (Bld) [#/Vol] 1.78 10*3/uL Normal 1.00-4.00 [facility] Comment on above: Order Comment: Speci men Type: BLOOD SPECIMEN Ordering Facility: [facility] Address: [address] [place] [address] Performed By: #### 2 432-2, , 2776-08 #### [facility] CLIA [id number] [address] [place] [address] [place] Lymphocytes/100 WBC (Bld) 22.3 % Normal [facility] Comment on above: Order Comment: Speci men Type: BLOOD SPECIMEN Ordering Facility: [facility] Address: [address] [place] [address] Performed By: #### 2 4321-2, , 2776-08 #### [facility] CLIA [id number] [address] [place] [address] [place] MCH (RBC) [Entitic mass] 26.2 pg Normal 26.0-34.0 [facility] Comment on above: Order Comment: Speci men Type: BLOOD SPECIMEN Ordering Facility: [facility] Address: [address] [place] [address] Performed By: #### 2 4321-2, , 2776-08 #### [facility] CLIA [id number] [address] [place] [address] [place] MCHC (RBC) [Mass/Vol] 30.7 g/dL Normal 30.5-36.0 [facility] Comment on above: Order Comment: Speci men Type: BLOOD SPECIMEN Ordering Facility: [facility] Address: [address] [place] [address] Performed By: #### 2 4321-2, , 2776-08 #### [facility] CLIA [id number] [address] [place] [address] [place] MCV (RBC) [Entitic vol] 85.5 fL Normal 80.0-100.0 [facility] Comment on above: Order Comment: Speci men Type: BLOOD SPECIMEN Ordering Facility: [facility] Address: [address] [place] [address] Performed By: #### 2 4321-2, , 2776-08 #### [facility] CLIA [id number] [address] [place] [address] [place] Monocytes (Bld) [#/Vol] 0.58 10*3/uL Normal <0.87 [facility] Comment on above: Order Comment: Speci men Type: BLOOD SPECIMEN Ordering Facility: [facility] Address: [address] [place] [address] Performed By: #### 2 4321-2, , 2776-08 #### [facility] CLIA [id number] [address] [place] [address] [place] Monocytes/100 WBC (Bld) 7.3 % Normal [facility] Comment on above: Order Comment: Speci men Type: BLOOD SPECIMEN Ordering Facility: [facility] Address: [address] [place] [address] Performed By: #### 2 4321-2, , 2776-08 #### [facility] CLIA [id number] [address] [place] [address] [place] Neutrophils (Bld) [#/Vol] 5.24 10*3/uL Normal 1.45-7.50 [facility] Comment on above: Order Comment: Speci men Type: BLOOD SPECIMEN Ordering Facility: [facility] Address: [address] [place] [address] Performed By: #### 2 4321-2, , 2776-08 #### [facility] CLIA [id number] [address] [place] [address] [place] Neutrophils/100 WBC (Bld) 65.6 % Normal [facility] Comment on above: Order Comment: Speci men Type: BLOOD SPECIMEN Ordering Facility: [facility] Address: [address] [place] [address] Performed By: #### 2 4321-2, , 2776-08 #### [facility] CLIA [id number] [address] [place] [address] [place] Nucleated RBC (Bld) [#/Vol] 10*3/uL Normal <0.01 [facility] Comment on above: Order Comment: Speci men Type: BLOOD SPECIMEN Ordering Facility: [facility] Address: [address] [place] [address] Performed By: #### 2 4321-2, , 2776-08 #### [facility] CLIA [id number] [address] [place] [address] [place] Nucleated RBC/100 WBC (Bld) [Ratio] 0.0 /100 WBC Normal [facility] Comment on above: Order Comment: Speci men Type: BLOOD SPECIMEN Ordering Facility: [facility] Address: [address] [place] [address] Performed By: #### 2 4321-2, , 2776-08 #### [facility] CLIA [id number] [address] [place] [address] [place] Platelet mean volume (Bld) [Entitic vol] 9.7 fL Normal 9.0-12.7 [facility] Comment on above: Order Comment: Speci men Type: BLOOD SPECIMEN Ordering Facility: [facility] Address: [address] [place] [address] Performed By: #### 2 4321-2, , 2776-08 #### [facility] CLIA [id number] [address] [place] [address] [place] Platelets (Bld) [#/Vol] 199 10*3/uL Normal 150-400 [facility] Comment on above: Order Comment: Speci men Type: BLOOD SPECIMEN Ordering Facility: [facility] Address: [address] [place] [address] Performed By: #### 2 4321-2, , 2776-08 #### [facility] CLIA [id number] [address] [place] [address] [place] RBC (Bld) [#/Vol] 4.27 10*6/uL Normal 4.20-6.00 [facility] Comment on above: Order Comment: Speci men Type: BLOOD SPECIMEN Ordering Facility: [facility] Address: [address] [place] [address] Performed By: #### 2 4321-2, , 2776-08 #### [facility] CLIA [id number] [address] [place] [address] [place] WBC (Bld) [#/Vol] 7.98 10*3/uL Normal 3.70-11.00 [facility] Comment on above: Order Comment: Speci men Type: BLOOD SPECIMEN Ordering Facility: [facility] Address: [address] [place] [address] Performed By: #### 2 4321-2, , 2776-08 #### [facility] CLIA [id number] [address] [place] [address] [place] Magnesium SerPl-mCncon 11-01 Magnesium [Mass/Vol] 2.3 mg/dL Normal 1.7-2.3 [facility] Comment on above: Order Comment: Speci men Type: BLOOD SPECIMEN Ordering Facility: [facility] Address: [address] [place] [address] Performed By: #### 2 777-1, 01128-7, 84749-6 #### [facility] CLIA [id number] [address] [place] [address] [place] Phosphate SerPl-mCncon 11-01 Phosphate [Mass/Vol] 2.6 mg/dL Low 2.7-4.8 [facility] Comment on above: Order Comment: Speci yogesh Type: BLOOD SPECIMEN Ordering Facility: [facility] Address: [address] [place] [address] Performed By: #### 2 777-1, 17139-1, 41251-3 #### [facility] CLIA [id number] [address] [place] [address] [place] XR ABDOMEN 1V [...] small bowel. Findings suggestive of improving ileus. Draftsperson: [email or web address] Transcribe Date/Time: Nov 02 2023 11:50A Dictated by : VERONICA CARTER MD This examination was interpreted and the report reviewed and electronically signed by: VERONICA CARTER MD on Nov 02 2023 11:52AM EST [id number] Normal [facility] Basic metabolic 2000 panelon 11-01-2023 Anion gap [Moles/Vol] 10 mmol/L Normal 9-18 [facility] Comment on above: Order Comment: Speci men Type: BLOOD SPECIMEN Ordering Facility: [facility] Address: [address] [place] [address] Performed By: #### 5 7021-8 #### [facility] CLIA [id number] [address] [place] [address] [place] Calcium [Mass/Vol] 7.9 mg/dL Low 8.5-10.2 [facility] Comment on above: Order Comment: Speci men Type: BLOOD SPECIMEN Ordering Facility: [facility] Address: [address] [place] [address] Performed By: #### 5 7021-8 #### [facility] CLIA [id number] [address] [place] [address] [place] Chloride [Moles/Vol] 114 mmol/L High 97-105 [facility] Comment on above: Order Comment: Speci men Type: BLOOD SPECIMEN Ordering Facility: [facility] Address: [address] [place] [address] Performed By: #### 5 7021-8 #### [facility] CLIA [id number] [address] [place] [address] [place] CO2 [Moles/Vol] 22 mmol/L Normal 22-30 [facility] Comment on above: Order Comment: Speci men Type: BLOOD SPECIMEN Ordering Facility: [facility] Address: [address] [place] [address] Performed By: #### 5 7021-8 #### [facility] CLIA [id number] [address] [place] [address] [place] Creatinine [Mass/Vol] 0.74 mg/dL Normal 0.73-1.22 [facility] Comment on above: Order Comment: Sana zuñiga Type: BLOOD SPECIMEN Ordering Facility: [facility] Address: [address] [place] [address] Performed By: #### 5 7021-8 #### [facility] CLIA [id number] [address] [place] [address] [place] Creatinine and Glomerular filtration rate.predicted panel (S/P/Bld) 124 mL/min/1.73m??? Normal >=60 [facility] Comment on above: Order Comment: Sana zuñiga Type: BLOOD SPECIMEN Ordering Facility: [facility] Address: [address] [place] [address] Result Comment: Lor mated Glomerular Filtration Rate [...] GFR. Performed By: #### 5 7021-8 #### [facility] CLIA [id number] [address] [place] [address] [place] Glucose [Mass/Vol] 98 mg/dL Normal 74-99 [facility] Comment on above: Order Comment: Sana zuñiga Type: BLOOD SPECIMEN Ordering Facility: [facility] Address: [address] [place] [address] Result Comment: The [place] [employer] (ADA) provides guidance for cutoff [...] Standards of Medical Care in Diabetes 2016, [place] [employer]. Diabetes Care. 2016.39(Suppl 1). Performed By: #### 5 7021-8 #### [facility] CLIA [id number] [address] [place] [address] [place] Potassium [Moles/Vol] 3.9 mmol/L Normal 3.7-5.1 [facility] Comment on above: Order Comment: Speci men Type: BLOOD SPECIMEN Ordering Facility: [facility] Address: [address] [place] [address] Performed By: #### 5 7021-8 #### [facility] CLIA [id number] [address] [place] [address] [place] Sodium [Moles/Vol] 146 mmol/L High 136-144 [facility] Comment on above: Order Comment: Speci men Type: BLOOD SPECIMEN Ordering Facility: [facility] Address: [address] [place] [address] Performed By: #### 5 7021-8 #### [facility] CLIA [id number] [address] [place] [address] [place] Urea nitrogen [Mass/Vol] 9 mg/dL Normal 9-24 [facility] Comment on above: Order Comment: Speci men Type: BLOOD SPECIMEN Ordering Facility: [facility] Address: [address] [place] [address] Performed By: #### 5 7021-8 #### [facility] CLIA [id number] [address] [place] [address] [place] CBC W Auto Differential pane l (Bld)on 11-01-2023 Basophils (Bld) [#/Vol] 10*3/uL Normal <0.11 [facility] Comment on above: Order Comment: Speci men Type: BLOOD SPECIMENOrdering Facility: [facility] Address: [address] [place] [address] Performed By: #### 5 7021-8 ####[facility] [id number] [place] [address] [place] Basophils/100 WBC (Bld) 0.3 % Normal [facility] Comment on above: Order Comment: Speci men Type: BLOOD SPECIMENOrdering Facility: [facility] Address: [address] [place] [address] Performed By: #### 5 7021-8 ####[facility] [id number] [place] [address] [place] Differential cell count method Nom (Bld) Auto Normal [facility] Comment on above: Order Comment: Speci men Type: BLOOD SPECIMENOrdering Facility: [facility] Address: [address] [place] [address] Performed By: #### 5 7021-8 ####[facility] [id number] [place] [address] [place] Eosinophils (Bld) [#/Vol] 0.23 10*3/uL Normal <0.46 [facility] Comment on above: Order Comment: Speci men Type: BLOOD SPECIMENOrdering Facility: [facility] Address: [address] [place] [address] Performed By: #### 5 7021-8 ####[facility] [id number] [place] [address] [place] Eosinophils/100 WBC (Bld) 3.0 % Normal [facility] Comment on above: Order Comment: Speci men Type: BLOOD SPECIMENOrdering Facility: [facility] Address: [address] [place] [address] Performed By: #### 5 7021-8 ####[facility] [id number] [place] [address] [place] Erythrocyte distribution width (RBC) [Ratio] 14.6 % Normal 11.5-15.0 [facility] Comment on above: Order Comment: Speci men Type: BLOOD SPECIMENOrdering Facility: [facility] Address: [address] [place] [address] Performed By: #### 5 7021-8 ####[facility] [id number] [place] [address] [place] Hematocrit (Bld) [Volume fraction] 28.6 % Low 39.0-51.0 [facility] Comment on above: Order Comment: Speci men Type: BLOOD SPECIMENOrdering Facility: [facility] Address: [address] [place] [address] Performed By: #### 5 7021-8 ####[facility] [id number] [place] [address] [place] Hemoglobin (Bld) [Mass/Vol] 9.0 g/dL Low 13.0-17.0 [facility] Comment on above: Order Comment: Speci men Type: BLOOD SPECIMENOrdering Facility: [facility] Address: [address] [place] [address] Performed By: #### 5 7021-8 ####[facility] [id number] [place] [address] [place] Immature granulocytes (Bld) [#/Vol] 0.05 10*3/uL Normal <0.10 [facility] Comment on above: Order Comment: Speci men Type: BLOOD SPECIMENOrdering Facility: [facility] Address: [address] [place] [address] Performed By: #### 5 7021-8 ####[facility] [id number] [place] [address] [place] Immature granulocytes/100 WBC (Bld) 0.7 % Normal [facility] Comment on above: Order Comment: Speci men Type: BLOOD SPECIMENOrdering Facility: [facility] Address: [address] [place] [address] Performed By: #### 5 7021-8 ####[facility] [id number] [place] [address] [place] Lymphocytes (Bld) [#/Vol] 1.86 10*3/uL Normal 1.00-4.00 [facility] Comment on above: Order Comment: Speci men Type: BLOOD SPECIMENOrdering Facility: [facility] Address: [address] [place] [address] Performed By: #### 5 7021-8 ####[facility] [id number] [place] [address] [place] Lymphocytes/100 WBC (Bld) 24.3 % Normal [facility] Comment on above: Order Comment: Speci men Type: BLOOD SPECIMENOrdering Facility: [facility] Address: [address] [place] [address] Performed By: #### 5 7021-8 ####[facility] [id number] [place] [address] [place] MCH (RBC) [Entitic mass] 26.8 pg Normal 26.0-34.0 [facility] Comment on above: Order Comment: Speci men Type: BLOOD SPECIMENOrdering Facility: [facility] Address: [address] [place] [address] Performed By: #### 5 7021-8 ####[facility]IA [id number] [place] [address] [place] MCHC (RBC) [Mass/Vol] 31.5 g/dL Normal 30.5-36.0 [facility] Comment on above: Order Comment: Speci men Type: BLOOD SPECIMENOrdering Facility: [facility] Address: [address] [place] [address] Performed By: #### 5 7021-8 ####[facility] [id number] [place] [address] [place] MCV (RBC) [Entitic vol] 85.1 fL Normal 80.0-100.0 [facility] Comment on above: Order Comment: Speci men Type: BLOOD SPECIMENOrdering Facility: [facility] Address: [address] [place] [address] Performed By: #### 5 7021-8 ####[facility] [id number] [place] [address] [place] Monocytes (Bld) [#/Vol] 0.62 10*3/uL Normal <0.87 [facility] Comment on above: Order Comment: Speci men Type: BLOOD SPECIMENOrdering Facility: [facility] Address: [address] [place] [address] Performed By: #### 5 7021-8 ####[facility] [id number] [place] [address] [place] Monocytes/100 WBC (Bld) 8.1 % Normal [facility] Comment on above: Order Comment: Speci men Type: BLOOD SPECIMENOrdering Facility: [facility] Address: [address] [place] [address] Performed By: #### 5 7021-8 ####[facility] [id number] [place] [address] [place] Neutrophils (Bld) [#/Vol] 4.87 10*3/uL Normal 1.45-7.50 [facility] Comment on above: Order Comment: Speci men Type: BLOOD SPECIMENOrdering Facility: [facility] Address: [address] [place] [address] Performed By: #### 5 7021-8 ####[facility]IA [id number] [place] [address] [place] Neutrophils/100 WBC (Bld) 63.6 % Normal [facility] Comment on above: Order Comment: Speci men Type: BLOOD SPECIMENOrdering Facility: [facility] Address: [address] [place] [address] Performed By: #### 5 7021-8 ####[facility] [id number] [place] [address] [place] Nucleated RBC (Bld) [#/Vol] 10*3/uL Normal <0.01 [facility] Comment on above: Order Comment: Speci men Type: BLOOD SPECIMENOrdering Facility: [facility] Address: [address] [place] [address] Performed By: #### 5 7021-8 ####[facility] [id number] [place] [address] [place] Nucleated RBC/100 WBC (Bld) [Ratio] 0.0 /100 WBC Normal [facility] Comment on above: Order Comment: Speci men Type: BLOOD SPECIMENOrdering Facility: [facility] Address: [address] [place] [address] Performed By: #### 5 7021-8 ####[facility] [id number] [place] [address] [place] Platelet mean volume (Bld) [Entitic vol] 9.6 fL Normal 9.0-12.7 [facility] Comment on above: Order Comment: Speci men Type: BLOOD SPECIMENOrdering Facility: [facility] Address: [address] [place] [address] Performed By: #### 5 7021-8 ####[facility]IA [id number] [place] [address] [place] Platelets (Bld) [#/Vol] 148 10*3/uL Low 150-400 [facility] Comment on above: Order Comment: Speci men Type: BLOOD SPECIMENOrdering Facility: [facility] Address: [address] [place] [address] Performed By: #### 5 7021-8 ####[facility] [id number] [place] [address] [place] RBC (Bld) [#/Vol] 3.36 10*6/uL Low 4.20-6.00 [facility] Comment on above: Order Comment: Speci men Type: BLOOD SPECIMENOrdering Facility: [facility] Address: [address] [place] [address] Performed By: #### 5 7021-8 ####[facility] [id number] [place] [address] [place] WBC (Bld) [#/Vol] 7.65 10*3/uL Normal 3.70-11.00 [facility] Comment on above: Order Comment: Speci men Type: BLOOD SPECIMENOrdering Facility: [facility] Address: [address] [place] [address] Performed By: #### 5 7021-8 ####[facility] [id number] [place] [address] [place] Magnesium SerPl-mCncon 10-31 Magnesium [Mass/Vol] 2.4 mg/dL High 1.7-2.3 [facility] Comment on above: Order Comment: Speci men Type: BLOOD SPECIMEN Ordering Facility: [facility] Address: [address] [place] [address] Performed By: #### 5 7021-8 #### [facility] CLIA [id number] [address] [place] [address] [place] Phosphate SerPl-mCncon 10-31 Phosphate [Mass/Vol] 2.3 mg/dL Low 2.7-4.8 [facility] Comment on above: Order Comment: Speci men Type: BLOOD SPECIMEN Ordering Facility: [facility] Address: [address] [place] [address] Performed By: #### 5 7021-8 #### [facility] CLIA [id number] [address] [place] [address] [place] Basic metabolic 2000 panelon 10-31-2023 Anion gap [Moles/Vol] 10 mmol/L Normal 9-18 [facility] Comment on above: Order Comment: Speci men Type: BLOOD SPECIMEN Ordering Facility: [facility] Address: [address] [place] [address] Performed By: #### 2 777-1, 43600-4, #### [facility] CLIA [id number] [address] [place] [address] [place] Calcium [Mass/Vol] 7.8 mg/dL Low 8.5-10.2 [facility] Comment on above: Order Comment: Speci men Type: BLOOD SPECIMEN Ordering Facility: [facility] Address: [address] [place] [address] Performed By: #### 2 777-1, 24026-4, #### [facility] CLIA [id number] [address] [place] [address] [place] Chloride [Moles/Vol] 115 mmol/L High 97-105 [facility] Comment on above: Order Comment: Speci men Type: BLOOD SPECIMEN Ordering Facility: [facility] Address: [address] [place], [place] [address] Performed By: #### 2 777-1, 76964-4, #### [facility] CLIA [id number] [address] [place] [address] [place] CO2 [Moles/Vol] 23 mmol/L Normal 22-30 [facility] Comment on above: Order Comment: Speci men Type: BLOOD SPECIMEN Ordering Facility: [facility] Address: [address] [place], [place] [id number] Performed By: #### 2 777-1, 13972-3, #### [facility] CLIA [id number] [address] [place] [address] [place] Creatinine [Mass/Vol] 0.72 mg/dL Low 0.73-1.22 [facility] Comment on above: Order Comment: Speci men Type: BLOOD SPECIMEN Ordering Facility: [facility] Address: [address] [place] [address] Performed By: #### 2 777-1, 30488-4, #### [facility] [facility] CLIA [id number] [address] [place] [address] [place] Creatinine and Glomerular filtration rate.predicted panel (S/P/Bld) 125 mL/min/1.73m??? Normal >=60 [facility] Comment on above: Order Comment: Sana zuñiga Type: BLOOD SPECIMEN Ordering Facility: [facility] Address: [address] [place] [address] Result Comment: Lor mated Glomerular Filtration Rate [...] actual GFR. Performed By: #### 2 777-1, 95585-6, #### [facility] CLIA [id number] [address] [place] [address] [place] Glucose [Mass/Vol] 93 mg/dL Normal 74-99 [facility] Comment on above: Order Comment: Sana zuñiga Type: BLOOD SPECIMEN Ordering Facility: [facility] Address: [address] [place] [address] Result Comment: The [place] [employer] (ADA) provides guidance for cutoff [...] Standards of Medical Care in Diabetes 2016, [place] [employer]. Diabetes Care. 2016.39(Suppl 1). Performed By: #### 2 777-1, 46043-7, #### [facility] CLIA [id number] [address] [place] [address] [place] Potassium [Moles/Vol] 3.9 mmol/L Normal 3.7-5.1 [facility] Comment on above: Order Comment: Speci men Type: BLOOD SPECIMEN Ordering Facility: [facility] Address: [address] [place] [address] Performed By: #### 2 777-1, 87013-0, #### [facility] CLIA [id number] [address] [place] [address] [place] Sodium [Moles/Vol] 148 mmol/L High 136-144 [facility] Comment on above: Order Comment: Speci men Type: BLOOD SPECIMEN Ordering Facility: [facility] Address: [address] [place] [address] Performed By: #### 2 777-1, 30097-2, #### [facility] CLIA [id number] [address] [place] [address] [place] Urea nitrogen [Mass/Vol] 8 mg/dL Low 9-24 [facility] Comment on above: Order Comment: Speci men Type: BLOOD SPECIMEN Ordering Facility: [facility] Address: [address] [place] [address] Performed By: #### 2 777-1, 30056-9, #### [facility] CLIA [id number] [address] [place] [address] [place] CBC W Auto Differential pane l (Bld)on 10-31-2023 Basophils (Bld) [#/Vol] 10*3/uL Normal <0.11 [facility] Comment on above: Order Comment: Speci men Type: BLOOD SPECIMEN Ordering Facility: [facility] Address: [address] [place] [address] Performed By: #### 5 7021-8 #### [facility] CLIA [id number] [address] [place] [address] [place] Basophils/100 WBC (Bld) 0.2 % Normal [facility] Comment on above: Order Comment: Speci men Type: BLOOD SPECIMEN Ordering Facility: [facility] Address: [address] [place] [address] Performed By: #### 5 7021-8 #### [facility] CLIA [id number] [address] [place] [address] [place] Differential cell count method Nom (Bld) Auto Normal [facility] Comment on above: Order Comment: Speci men Type: BLOOD SPECIMEN Ordering Facility: [facility] Address: [address] [place] [address] Performed By: #### 5 7021-8 #### [facility] CLIA [id number] [address] [place] [address] [place] Eosinophils (Bld) [#/Vol] 0.18 10*3/uL Normal <0.46 [facility] Comment on above: Order Comment: Speci men Type: BLOOD SPECIMEN Ordering Facility: [facility] Address: [address] [place] [address] Performed By: #### 5 7021-8 #### [facility] CLIA [id number] [address] [place] [address] [place] Eosinophils/100 WBC (Bld) 1.9 % Normal [facility] Comment on above: Order Comment: Speci men Type: BLOOD SPECIMEN Ordering Facility: [facility] Address: [address] [place] [address] Performed By: #### 5 7021-8 #### [facility] CLIA [id number] [address] [place] [address] [place] Erythrocyte distribution width (RBC) [Ratio] 14.5 % Normal 11.5-15.0 [facility] Comment on above: Order Comment: Speci men Type: BLOOD SPECIMEN Ordering Facility: [facility] Address: [address] [place] [address] Performed By: #### 5 7021-8 #### [facility] CLIA [id number] [address] [place] [address] [place] Hematocrit (Bld) [Volume fraction] 30.2 % Low 39.0-51.0 [facility] Comment on above: Order Comment: Speci men Type: BLOOD SPECIMEN Ordering Facility: [facility] Address: [address] [place] [address] Performed By: #### 5 7021-8 #### [facility] CLIA [id number] [address] [place] [address] [place] Hemoglobin (Bld) [Mass/Vol] 9.4 g/dL Low 13.0-17.0 [facility] Comment on above: Order Comment: Speci men Type: BLOOD SPECIMEN Ordering Facility: [facility] Address: [address] [place] [address] Performed By: #### 5 7021-8 #### [facility] CLIA [id number] [address] [place] [address] [place] Immature granulocytes (Bld) [#/Vol] 0.06 10*3/uL Normal <0.10 [facility] Comment on above: Order Comment: Speci men Type: BLOOD SPECIMEN Ordering Facility: [facility] Address: [address] [place] [address] Performed By: #### 5 7021-8 #### [facility] CLIA [id number] [address] [place] [address] [place] Immature granulocytes/100 WBC (Bld) 0.6 % Normal [facility] Comment on above: Order Comment: Speci men Type: BLOOD SPECIMEN Ordering Facility: [facility] Address: [address] [place] [address] Performed By: #### 5 7021-8 #### [facility] CLIA [id number] [address] [place] [address] [place] Lymphocytes (Bld) [#/Vol] 1.61 10*3/uL Normal 1.00-4.00 [facility] Comment on above: Order Comment: Speci men Type: BLOOD SPECIMEN Ordering Facility: [facility] Address: [address] [place] [address] Performed By: #### 5 7021-8 #### [facility] CLIA [id number] [address] [place] [address] [place] Lymphocytes/100 WBC (Bld) 16.8 % Normal [facility] Comment on above: Order Comment: Speci men Type: BLOOD SPECIMEN Ordering Facility: [facility] Address: [address] [place] [address] Performed By: #### 5 7021-8 #### [facility] CLIA [id number] [address] [place] [address] [place] MCH (RBC) [Entitic mass] 26.5 pg Normal 26.0-34.0 [facility] Comment on above: Order Comment: Speci men Type: BLOOD SPECIMEN Ordering Facility: [facility] Address: [address] [place] [address] Performed By: #### 5 7021-8 #### [facility] CLIA [id number] [address] [place] [address] [place] MCHC (RBC) [Mass/Vol] 31.1 g/dL Normal 30.5-36.0 [facility] Comment on above: Order Comment: Speci men Type: BLOOD SPECIMEN Ordering Facility: [facility] Address: [address] [place] [address] Performed By: #### 5 7021-8 #### [facility] CLIA [id number] [address] [place] [address] [place] MCV (RBC) [Entitic vol] 85.1 fL Normal 80.0-100.0 [facility] Comment on above: Order Comment: Speci men Type: BLOOD SPECIMEN Ordering Facility: [facility] Address: [address] [place] [address] Performed By: #### 5 7021-8 #### [facility] CLIA [id number] [address] [place] [address] [place] Monocytes (Bld) [#/Vol] 0.88 10*3/uL High <0.87 [facility] Comment on above: Order Comment: Speci men Type: BLOOD SPECIMEN Ordering Facility: [facility] Address: [address] [place] [address] Performed By: #### 5 7021-8 #### [facility] CLIA [id number] [address] [place] [address] [place] Monocytes/100 WBC (Bld) 9.2 % Normal [facility] Comment on above: Order Comment: Speci men Type: BLOOD SPECIMEN Ordering Facility: [facility] Address: [address] [place] [address] Performed By: #### 5 7021-8 #### [facility] CLIA [id number] [address] [place] [address] [place] Neutrophils (Bld) [#/Vol] 6.84 10*3/uL Normal 1.45-7.50 [facility] Comment on above: Order Comment: Speci men Type: BLOOD SPECIMEN Ordering Facility: [facility] Address: [address] [place] [address] Performed By: #### 5 7021-8 #### [facility] CLIA [id number] [address] [place] [address] [place] Neutrophils/100 WBC (Bld) 71.3 % Normal [facility] Comment on above: Order Comment: Speci men Type: BLOOD SPECIMEN Ordering Facility: [facility] Address: [address] [place] [address] Performed By: #### 5 7021-8 #### [facility] CLIA [id number] [address] [place] [address] [place] Nucleated RBC (Bld) [#/Vol] 10*3/uL Normal <0.01 [facility] Comment on above: Order Comment: Speci men Type: BLOOD SPECIMEN Ordering Facility: [facility] Address: [address] [place] [address] Performed By: #### 5 7021-8 #### [facility] CLIA [id number] [address] [place] [address] [place] Nucleated RBC/100 WBC (Bld) [Ratio] 0.0 /100 WBC Normal [facility] Comment on above: Order Comment: Speci men Type: BLOOD SPECIMEN Ordering Facility: [facility] Address: [address] [place] [address] Performed By: #### 5 7021-8 #### [facility] CLIA [id number] [address] [place] [address] [place] Platelet mean volume (Bld) [Entitic vol] 9.8 fL Normal 9.0-12.7 [facility] Comment on above: Order Comment: Speci men Type: BLOOD SPECIMEN Ordering Facility: [facility] Address: [address] [place] [address] Performed By: #### 5 7021-8 #### [facility] CLIA [id number] [address] [place] [address] [place] Platelets (Bld) [#/Vol] 144 10*3/uL Low 150-400 [facility] Comment on above: Order Comment: Speci men Type: BLOOD SPECIMEN Ordering Facility: [facility] Address: [address] [place] [address] Result Comment: Resu lts checked and verified.No clot detected. Performed By: #### 5 7021-8 #### [facility] CLIA [id number] [address] [place] [address] [place] RBC (Bld) [#/Vol] 3.55 10*6/uL Low 4.20-6.00 [facility] Comment on above: Order Comment: Speci men Type: BLOOD SPECIMEN Ordering Facility: [facility] Address: [address] [place] [address] Performed By: #### 5 7021-8 #### [facility] CLIA [id number] [address] [place] [address] [place] WBC (Bld) [#/Vol] 9.59 10*3/uL Normal 3.70-11.00 [facility] Comment on above: Order Comment: Speci men Type: BLOOD SPECIMEN Ordering Facility: [facility] Address: [address] [place] [address] Performed By: #### 5 7021-8 #### [facility] CLIA [id number] [address] [place] [address] [place] CBC panel Auto (Bld)on 10-30 Erythrocyte distribution width (RBC) [Ratio] 14.5 % Normal 11.5-15.0 [facility] Comment on above: Order Comment: Speci men Type: BLOOD SPECIMEN Ordering Facility: [facility] Address: [address] [place] [address] Performed By: #### 5 7021-8 #### [facility] CLIA [id number] [address] [place] [address] [place] Hematocrit (Bld) [Volume fraction] 28.6 % Low 39.0-51.0 [facility] Comment on above: Order Comment: Speci men Type: BLOOD SPECIMEN Ordering Facility: [facility] Address: [address] [place] [address] Performed By: #### 5 7021-8 #### [facility] CLIA [id number] [address] [place] [address] [place] Hemoglobin (Bld) [Mass/Vol] 9.1 g/dL Low 13.0-17.0 [facility] Comment on above: Order Comment: Speci men Type: BLOOD SPECIMEN Ordering Facility: [facility] Address: [address] [place] [address] Performed By: #### 5 7021-8 #### [facility] CLIA [id number] [address] [place] [address] [place] MCH (RBC) [Entitic mass] 27.1 pg Normal 26.0-34.0 [facility] Comment on above: Order Comment: Speci men Type: BLOOD SPECIMEN Ordering Facility: [facility] Address: [address] [place] [address] Performed By: #### 5 7021-8 #### [facility] CLIA [id number] [address] [place] [address] [place] MCHC (RBC) [Mass/Vol] 31.8 g/dL Normal 30.5-36.0 [facility] Comment on above: Order Comment: Speci men Type: BLOOD SPECIMEN Ordering Facility: [facility] Address: [address] [place] [address] Performed By: #### 5 7021-8 #### [facility] CLIA [id number] [address] [place] [address] [place] MCV (RBC) [Entitic vol] 85.1 fL Normal 80.0-100.0 [facility] Comment on above: Order Comment: Speci men Type: BLOOD SPECIMEN Ordering Facility: [facility] Address: [address] [place] [address] Performed By: #### 5 7021-8 #### [facility] CLIA [id number] [address] [place] [address] [place] Nucleated RBC (Bld) [#/Vol] 10*3/uL Normal <0.01 [facility] Comment on above: Order Comment: Speci men Type: BLOOD SPECIMEN Ordering Facility: [facility] Address: [address] [place] [address] Performed By: #### 5 7021-8 #### [facility] CLIA [id number] [address] [place] [address] [place] Platelet mean volume (Bld) [Entitic vol] 10.1 fL Normal 9.0-12.7 [facility] Comment on above: Order Comment: Speci men Type: BLOOD SPECIMEN Ordering Facility: [facility] Address: [address] [place] [address] Performed By: #### 5 7021-8 #### [facility] CLIA [id number] [address] [place] [address] [place] Platelets (Bld) [#/Vol] 180 10*3/uL Normal 150-400 [facility] Comment on above: Order Comment: Speci men Type: BLOOD SPECIMEN Ordering Facility: [facility] Address: [address] [place] [address] Performed By: #### 5 7021-8 #### [facility] CLIA [id number] [address] [place] [address] [place] RBC (Bld) [#/Vol] 3.36 10*6/uL Low 4.20-6.00 [facility] Comment on above: Order Comment: Speci men Type: BLOOD SPECIMEN Ordering Facility: [facility] Address: [address] [place] [address] Performed By: #### 5 7021-8 #### [facility] CLIA [id number] [address] [place] [address] [place] WBC (Bld) [#/Vol] 10.06 10*3/uL Normal 3.70-11.00 [facility] Comment on above: Order Comment: Speci men Type: BLOOD SPECIMEN Ordering Facility: [facility] Address: [address] [place] [address] Performed By: #### 5 7021-8 #### [facility] CLIA [id number] [address] [place] [address] [place] CONSULT PROGon 10-31-2023 CONSULT PROG HNO ID: [id number] Author: HEAVEN CAMACHO MD Service: Urology Author Type: Resident Type: Consult Progress Note Filed: 10/31/2023 06:56 Note Text: ON LICENSE OF [facility] UROLOGY PROGRESS NOTE Name: Johnny Devine Bed: [id number] Date: 10/31/2023 After Hours [facility] Urology Service Pager: [phone] ASSESSMENT AND PLAN Johnny Devine is a [...] affiliate, Dr. Joseph Camacho MD Urology Resident [facility] Pager [phone] For weekend or after hours issues please page the on-call urology pager [phone] 10/31/2023 6:48 AM Subjective SUBJECTIVE - See [...] Imaging All relevant recent imaging reviewed Normal [facility] Comprehensive metabolic 2000 panelon 10-31-2023 Albumin [Mass/Vol] 3.1 g/dL Low 3.9-4.9 [facility] Comment on above: Order Comment: Speci men Type: BLOOD SPECIMEN Ordering Facility: [facility] Address: [address] [place] [address] Performed By: #### 5 7021-8 #### [facility] CLIA [id number] [address] [place] [address] [place] ALP [Catalytic activity/Vol] 31 U/L Low 38-113 [facility] Comment on above: Order Comment: Speci men Type: BLOOD SPECIMEN Ordering Facility: [facility] Address: [address] [place] [address] Performed By: #### 5 7021-8 #### [facility] CLIA [id number] [address] [place] [address] [place] ALT [Catalytic activity/Vol] 6 U/L Low 10-54 [facility] Comment on above: Order Comment: Speci men Type: BLOOD SPECIMEN Ordering Facility: [facility] Address: [address] [place] [address] Performed By: #### 5 7021-8 #### [facility] CLIA [id number] [address] [place] [address] [place] Anion gap [Moles/Vol] 6 mmol/L Low 9-18 [facility] Comment on above: Order Comment: Speci men Type: BLOOD SPECIMEN Ordering Facility: [facility] Address: [address] [place] [address] Performed By: #### 5 7021-8 #### [facility] CLIA [id number] [address] [place] [address] [place] AST [Catalytic activity/Vol] 13 U/L Low 14-40 [facility] Comment on above: Order Comment: Speci men Type: BLOOD SPECIMEN Ordering Facility: [facility] Address: [address] [place] [address] Performed By: #### 5 7021-8 #### [facility] CLIA [id number] [address] [place] [address] [place] Bilirubin [Mass/Vol] mg/dL Low 0.2-1.3 [facility] Comment on above: Order Comment: Speci men Type: BLOOD SPECIMEN Ordering Facility: [facility] Address: [address] [place] [address] Performed By: #### 5 7021-8 #### [facility] CLIA [id number] [address] [place] [address] [place] Calcium [Mass/Vol] 7.4 mg/dL Low 8.5-10.2 [facility] Comment on above: Order Comment: Speci men Type: BLOOD SPECIMEN Ordering Facility: [facility] Address: [address] [place] [address] Performed By: #### 5 7021-8 #### [facility] CLIA [id number] [address] [place] [address] [place] Chloride [Moles/Vol] 115 mmol/L High 97-105 [facility] Comment on above: Order Comment: Speci men Type: BLOOD SPECIMEN Ordering Facility: [facility] Address: [address] [place] [address] Performed By: #### 5 7021-8 #### [facility] CLIA [id number] [address] [place] [address] [place] CO2 [Moles/Vol] 26 mmol/L Normal 22-30 [facility] Comment on above: Order Comment: Speci men Type: BLOOD SPECIMEN Ordering Facility: [facility] Address: [address] [place] [address] Performed By: #### 5 7021-8 #### [facility] CLIA [id number] [address] [place] [address] [place] Creatinine [Mass/Vol] 0.73 mg/dL Normal 0.73-1.22 [facility] Comment on above: Order Comment: Speci men Type: BLOOD SPECIMEN Ordering Facility: [facility] Address: [address] [place] [address] Performed By: #### 5 7021-8 #### [facility] CLIA [id number] [address] [place] [address] [place] Creatinine and Glomerular filtration rate.predicted panel (S/P/Bld) 125 mL/min/1.73m??? Normal >=60 [facility] Comment on above: Order Comment: Speci men Type: BLOOD SPECIMEN Ordering Facility: [facility] Address: [address] [place] [address] Result Comment: Lor mated Glomerular Filtration Rate [...] GFR. Performed By: #### 5 7021-8 #### [facility] CLIA [id number] [address] [place] [address] [place] Glucose [Mass/Vol] 103 mg/dL High 74-99 [facility] Comment on above: Order Comment: Sana zuñiga Type: BLOOD SPECIMEN Ordering Facility: [facility] Address: [address] [place] [address] Result Comment: The [place] [employer] (ADA) provides guidance for cutoff [...] Standards of Medical Care in Diabetes 2016, [place] [employer]. Diabetes Care. 2016.39(Suppl 1). Performed By: #### 5 7021-8 #### [facility] CLIA [id number] [address] [place] [address] [place] Potassium [Moles/Vol] 4.0 mmol/L Normal 3.7-5.1 [facility] Comment on above: Order Comment: Sana zuñiga Type: BLOOD SPECIMEN Ordering Facility: [facility] Address: [address] [place], [place] [address] Performed By: #### 5 7021-8 #### [facility] CLIA [id number] [address] [place] [address] [place] Protein [Mass/Vol] 5.6 g/dL Low 6.3-8.0 [facility] Comment on above: Order Comment: Speci men Type: BLOOD SPECIMEN Ordering Facility: [facility] Address: [address] [place] [address] Performed By: #### 5 7021-8 #### [facility] CLIA [id number] [address] [place] [address] [place] Sodium [Moles/Vol] 147 mmol/L High 136-144 [facility] Comment on above: Order Comment: Speci men Type: BLOOD SPECIMEN Ordering Facility: [facility] Address: [address] [place] [address] Performed By: #### 5 7021-8 #### [facility] CLIA [id number] [address] [place] [address] [place] Urea nitrogen [Mass/Vol] 9 mg/dL Normal 9-24 [facility] Comment on above: Order Comment: Speci men Type: BLOOD SPECIMEN Ordering Facility: [facility] Address: [address] [place] [address] Performed By: #### 5 7021-8 #### [facility] CLIA [id number] [address] [place] [address] [place] LOZ03it 10-31-2023 ECG01 Ventricular Rate : 9 3 BPM Atrial Rate : 93 BPM P-R Interval : 146 ms QRS Duration : 90 ms Q-T Interval : 394 ms QTC Calculation(Bazett) : 489 ms Calculated P [place] : 7 degrees Calculated R [place] : 11 degrees Calculated T [place] : -11 degrees NORMAL SINUS RHYTHM ANTEROLATERAL T WAVE ABNORMALITY BORDERLINE PROLONGED QTC ABNORMAL ECG Confirmed by TRENT BYRD MD ([id number]) on 11/06/2023 9:42:18 AM NAME : JOHNNY DEVINE PID : [id number] : 1990 Gender : Male Race : ORD : Procedure Date : Oct 31 2023 15:33:44 Edit Date : Nov 06 2023 09:42:18 Diagnosis: NORMAL SINUS RHYTHM ANTEROLATERAL T WAVE ABNORMALITY BORDERLINE PROLONGED QTC ABNORMAL ECG Confirmed by TRENT BYRD MD ([id number]) on 11/06/2023 9:42:18 AM Test Reason : AMET Location : 74 : H71 [id number] Overread By : TRENT BYRD MD Edited By : TRENT BYRD MD Referred By : PHOENIX CARDENAS Acquired by : MARI DUMONT [facility] EMERon 10-31-2023 [facility] HNO ID: [id number] Author: PASTORA KINGSLEY APRN.CNP Service: Critical Care [...] October 31, 2023 TIME: 4:13 PM Normal [facility] Magnesium SerPl-mCncon 10-30 Magnesium [Mass/Vol] 2.2 mg/dL Normal 1.7-2.3 [facility] Comment on above: Order Comment: Speci men Type: BLOOD SPECIMENOrdering Facility: [facility] Address: [address] [place] [address] Performed By: #### 1 9123-9, 2777-1 ####[facility] [id number] [address] [place] Magnesium [Mass/Vol] 2.1 mg/dL Normal 1.7-2.3 [facility] Comment on above: Order Comment: Speci men Type: BLOOD SPECIMEN Ordering Facility: [facility] Address: [address] [place] [address] Performed By: #### 2 777-1, 44267-7, 87698-9 #### [facility] CLIA [id number] [address] [place] [address] [place] NURSING PROGon 10-31-2023 NURSING PROG HNO ID: [id number] Author: PAZ RIGGINS, RN Service: Nursing Author Type: Registered Nurse Type: Nursing Progress Note Filed: 10/31/2023 16:32 Note Text: Called into patients room by brother who stated patient was shaking hard and having seizure like activity, on entering room patient was tachypneic and breathing hard, AMET activated. Chest xray ordered, EKG done, labs done, oxygen 89 on RA, 2L NC applied. Normal [facility] Phosphate SerPl-mCncon 10-30 Phosphate [Mass/Vol] 1.4 mg/dL Low 2.7-4.8 [facility] Comment on above: Order Comment: Speci men Type: BLOOD SPECIMENOrdering Facility: [facility] Address: [address] [place] [address] Performed By: #### 1 9123-9, 2777-1 ####[facility] [id number] [facility] [place] [address] [place] Phosphate [Mass/Vol] 2.1 mg/dL Low 2.7-4.8 [facility] Comment on above: Order Comment: Speci men Type: BLOOD SPECIMEN Ordering Facility: [facility] Address: [address] [place] [address] Performed By: #### 2 777-1, 58732-6, 66520-6 #### [facility] CLIA [id number] [address] [place] [address] [place] [address] [place] XR ABDOMEN 1V [...] abnormality. Lung bases are not well seen. Draftsperson: [facility] Transcribe Date/Time: Oct 31 2023 5:15P Dictated by : LEONEL ALONZO MD This examination was interpreted and the report reviewed and electronically signed by: LEONEL ALONZO MD on Oct 31 2023 5:22PM EST [id number] Normal [facility] XR CHEST 1V FRONTAL PORTon 0 10-31-2023 [...] cardiomediastinal silhouette. Other: . IMPRESSION: See result. Draftsperson: [facility] Transcribe Date/Time: Oct 31 2023 4:14P Dictated by : SHEA WORTHY MD This examination was interpreted and the report reviewed and electronically signed by: SHEA WORTHY MD on Oct 31 2023 4:15PM EST [id number] Normal [facility] ANES POSTPROC EVALon 024 ANES POSTPROC EVAL HNO ID: [id number] Author: JEREMIE JOAQUIN MD Service: ? Author Type: Anesthesiologist Type: Anesthesia Postprocedure Evaluation Filed: 10/30/2023 11:55 Note Text: POST ANESTHESIA EVALUATION NOTE : 1990 Procedure Summary Date: 10/30/23 Room / Location: [place] [address] [facility] Anesthesia Start: 731 Anesthesia Stop: [...] October 30, 2023 TIME: 11:46 AM CSN: [id number] Normal [facility] ANES PRE-OPon 10-30-2023 ANES PRE-OP HNO ID: [id number] Author: JEREMIE JOAQUIN MD Service: ? Author Type: Anesthesiologist Type: Anesthesia Preprocedure Evaluation Filed: 10/30/2023 08:16 Note Text: ANESTHESIOLOGY DAY OF SURGERY NOTE : 1990 Procedure Information Date/Time: 10/30/23 0730 Procedure: DORSAL SLIT FORESKIN EXCEPT (Penis) Location: [place] [address] [facility] Surgeons: Rafael Giraldo MD [...] and consent discussed: yes. Patient / Responsible Democrat agrees to proceed: yes Patient / Surrogate [...] mL MUCOUS MEMBRANE ONCE - phenol 1 [place] (CHLORASEPTIC) 1 [place] MUCOUS MEMBRANE (TOPICAL MOUTH AND THROAT) q [...] INTRAVENOUS DAILY (6 AM) - phenol 1 [place] (CHLORASEPTIC) 1 [place] MUCOUS MEMBRANE (TOPICAL MOUTH AND THROAT) q [...] MORNING F (more content not included)... Normal [facility] Basic metabolic 2000 panelon 10-30-2023 Anion gap [Moles/Vol] 12 mmol/L Normal 9-18 [facility] Comment on above: Order Comment: Speci men Type: BLOOD SPECIMEN [facility] Address: [address] [place] [address] Performed By: #### 2 4321-2, , 2776-08 #### [facility] CLIA [id number] [address] [place] [address] [place] Calcium [Mass/Vol] 7.4 mg/dL Low 8.5-10.2 [facility] Comment on above: Order Comment: Speci men Type: BLOOD SPECIMEN Ordering Facility: [facility] Address: [address] [place] [address] Performed By: #### 2 4321-2, , 2776-08 #### [facility] CLIA [id number] [address] [place] [address] [place] Chloride [Moles/Vol] 113 mmol/L High 97-105 [facility] Comment on above: Order Comment: Speci men Type: BLOOD SPECIMEN Ordering Facility: [facility] Address: [address] [place] [address] Performed By: #### 2 4321-2, , 2776-08 #### [facility] CLIA [id number] [address] [place] [address] [place] CO2 [Moles/Vol] 24 mmol/L Normal 22-30 [facility] Comment on above: Order Comment: Speci men Type: BLOOD SPECIMEN Ordering [facility]: [facility] Address: [address] [place] [address] Performed By: #### 2 4321-2, , 2776-08 #### [facility] CLIA [id number] [address] [place] [address] [place] Creatinine [Mass/Vol] 0.69 mg/dL Low 0.73-1.22 [facility] Comment on above: Order Comment: Speci men Type: BLOOD SPECIMEN Ordering Facility: [facility] Address: [address] [place] [address] Performed By: #### 2 4321-2, , 2776-08 #### [facility] CLIA [id number] [address] [place] [address] [place] Creatinine and Glomerular filtration rate.predicted panel (S/P/Bld) 127 mL/min/1.73m??? Normal >=60 [facility] Comment on above: Order Comment: Speci men Type: BLOOD SPECIMEN Ordering [facility]: [facility] Address: [address] [place] [address] Result Comment: Lor mated Glomerular Filtration Rate [...] actual GFR. Performed By: #### 2 4321-2, 38630-62776-08 #### [facility] CLIA [id number] [address] [place] [address] [place] Glucose [Mass/Vol] 98 mg/dL Normal 74-99 [facility] Comment on above: Order Comment: Sana zuñiga Type: BLOOD SPECIMEN Ordering Facility: [facility] Address: [address] [place] [address] Result Comment: The [place] [employer] Association (ADA) provides guidance for cutoff [...] Standards of Medical Care in Diabetes 2016, [place] [employer]. Diabetes Care. 2016.39(Suppl 1). Performed By: #### 2 4321-2, , 2776-08 #### [facility] CLIA [id number] [address] [place] [address] [place] Potassium [Moles/Vol] 3.6 mmol/L Low 3.7-5.1 [facility] Comment on above: Order Comment: Sana zuñiga Type: BLOOD SPECIMEN Ordering [facility]: [facility] Address: [address] [place] [address] Performed By: #### 2 4321-2, , 2776-08 #### [facility] CLIA [id number] [address] [place] [address] [place] Sodium [Moles/Vol] 149 mmol/L High 136-144 [facility] Comment on above: Order Comment: Sana zuñiga Type: BLOOD SPECIMEN Ordering [facility]: [facility] Address: [address] [place] [address] Performed By: #### 2 4321-2, 24945-1, 2777- #### [facility] CLIA [id number] [address] [place] [address] [place] Urea nitrogen [Mass/Vol] 9 mg/dL Normal 9-24 [facility] Comment on above: Order Comment: Speci men Type: BLOOD SPECIMEN Ordering [facility]: [facility] Address: [address] [place] [address] Performed By: #### 2 4321-2, 73712-6, 277- #### [facility] CLIA [id number] [address] [place] [address] [place] CBC W Auto Differential pane l (Bld)on 10-30-2023 Basophils (Bld) [#/Vol] 0.03 10*3/uL Normal <0.11 [facility] Comment on above: Order Comment: Speci men Type: BLOOD SPECIMEN Ordering [facility]: [facility] Address: [address] [place] [address] Performed By: #### 5 7021-8 #### [facility] CLIA [id number] [address] [place] [address] [place] Basophils/100 WBC (Bld) 0.3 % Normal [facility] Comment on above: Order Comment: Speci men Type: BLOOD SPECIMEN Ordering Facility: [facility] Address: [address] [place] [address] Performed By: #### 5 7021-8 #### [facility] CLIA [id number] [address] [place] [address] [place] Differential cell count method Nom (Bld) Auto Normal [facility] Comment on above: Order Comment: Speci men Type: BLOOD SPECIMEN Ordering Facility: [facility] Address: [address] [place] [address] Performed By: #### 5 7021-8 #### [facility] CLIA [id number] [address] [place], [place] [address] [place] Eosinophils (Bld) [#/Vol] 0.07 10*3/uL Normal <0.46 [facility] Comment on above: Order Comment: Speci men Type: BLOOD SPECIMEN Ordering Facility: [facility] Address: [address] [place] [address] Performed By: #### 5 7021-8 #### [facility] CLIA [id number] [address] [place] [address] [place] Eosinophils/100 WBC (Bld) 0.6 % Normal [facility] Comment on above: Order Comment: Speci men Type: BLOOD SPECIMEN Ordering Facility: [facility] Address: [address] [place] [address] Performed By: #### 5 7021-8 #### [facility] CLIA [id number] [address] [place] [address] [place] Erythrocyte distribution width (RBC) [Ratio] 14.5 % Normal 11.5-15.0 [facility] Comment on above: Order Comment: Speci men Type: BLOOD SPECIMEN Ordering Facility: [facility] Address: [address] [place] [address] Performed By: #### 5 7021-8 #### [facility] CLIA [id number] [address] [place] [address] [place] Hematocrit (Bld) [Volume fraction] 31.1 % Low 39.0-51.0 [facility] Comment on above: Order Comment: Speci men Type: BLOOD SPECIMEN Ordering Facility: [facility] Address: [address] [place] [address] Performed By: #### 5 7021-8 #### [facility] CLIA [id number] [address] [place] [address] [place] Hemoglobin (Bld) [Mass/Vol] 9.8 g/dL Low 13.0-17.0 [facility] Comment on above: Order Comment: Speci men Type: BLOOD SPECIMEN Ordering Facility: [facility] Address: [address] [place] [address] Performed By: #### 5 7021-8 #### [facility] CLIA [id number] [address] [place] [address] [place] Immature granulocytes (Bld) [#/Vol] 0.06 10*3/uL Normal <0.10 [facility] Comment on above: Order Comment: Speci men Type: BLOOD SPECIMEN Ordering Facility: [facility] Address: [address] [place] [address] Performed By: #### 5 7021-8 #### [facility] CLIA [id number] [address] [place] [address] [place] Immature granulocytes/100 WBC (Bld) 0.5 % Normal [facility] Comment on above: Order Comment: Speci men Type: BLOOD SPECIMEN Ordering Facility: [facility] Address: [address] [place] [address] Performed By: #### 5 7021-8 #### [facility] CLIA [id number] [address] [place] [address] [place] Lymphocytes (Bld) [#/Vol] 1.41 10*3/uL Normal 1.00-4.00 [facility] Comment on above: Order Comment: Speci men Type: BLOOD SPECIMEN Ordering Facility: [facility] Address: [address] [place] [address] Performed By: #### 5 7021-8 #### [facility] CLIA [id number] [address] [place] [address] [place] Lymphocytes/100 WBC (Bld) 12.0 % Normal [facility] Comment on above: Order Comment: Speci men Type: BLOOD SPECIMEN Ordering Facility: [facility] Address: [address] [place] [address] Performed By: #### 5 7021-8 #### [facility] CLIA [id number] [address] [place] [address] [place] MCH (RBC) [Entitic mass] 26.6 pg Normal 26.0-34.0 [facility] Comment on above: Order Comment: Speci men Type: BLOOD SPECIMEN Ordering Facility: [facility] Address: [address] [place] [address] Performed By: #### 5 7021-8 #### [facility] CLIA [id number] [address] [place] [address] [place] MCHC (RBC) [Mass/Vol] 31.5 g/dL Normal 30.5-36.0 [facility] Comment on above: Order Comment: Speci men Type: BLOOD SPECIMEN Ordering Facility: [facility] Address: [address] [place] [address] Performed By: #### 5 7021-8 #### [facility] CLIA [id number] [address] [place] [address] [place] MCV (RBC) [Entitic vol] 84.5 fL Normal 80.0-100.0 [facility] Comment on above: Order Comment: Speci men Type: BLOOD SPECIMEN Ordering Facility: [facility] Address: [address] [place] [address] Performed By: #### 5 7021-8 #### [facility] CLIA [id number] [address] [place] [address] [place] Monocytes (Bld) [#/Vol] 1.18 10*3/uL High <0.87 [facility] Comment on above: Order Comment: Speci men Type: BLOOD SPECIMEN Ordering Facility: [facility] Address: [address] [place] [address] Performed By: #### 5 7021-8 #### [facility] CLIA [id number] [address] [place] [address] [place] Monocytes/100 WBC (Bld) 10.1 % Normal [facility] Comment on above: Order Comment: Speci men Type: BLOOD SPECIMEN Ordering Facility: [facility] Address: [address] [place] [address] Performed By: #### 5 7021-8 #### [facility] CLIA [id number] [address] [place] [address] [place] Neutrophils (Bld) [#/Vol] 8.98 10*3/uL High 1.45-7.50 [facility] Comment on above: Order Comment: Speci men Type: BLOOD SPECIMEN Ordering [facility]: [facility] Address: [address] [place] [address] Performed By: #### 5 7021-8 #### [facility] CLIA [id number] [address] [place] [address] [place] Neutrophils/100 WBC (Bld) 76.5 % Normal [facility] Comment on above: Order Comment: Speci men Type: BLOOD SPECIMEN Ordering Facility: [facility] Address: [address] [place] [address] Performed By: #### 5 7021-8 #### [facility] CLIA [id number] [address] [place] [address] [place] Nucleated RBC (Bld) [#/Vol] 10*3/uL Normal <0.01 [facility] Comment on above: Order Comment: Speci men Type: BLOOD SPECIMEN Ordering Facility: [facility] Address: [address] [place] [address] Performed By: #### 5 7021-8 #### [facility] CLIA [id number] [address] [place] [address] [place] Nucleated RBC/100 WBC (Bld) [Ratio] 0.0 /100 WBC Normal [facility] Comment on above: Order Comment: Speci men Type: BLOOD SPECIMEN Ordering Facility: [facility] Address: [address] [place] [address] Performed By: #### 5 7021-8 #### [facility] CLIA [id number] [address] [place] [address] [place] Platelet mean volume (Bld) [Entitic vol] 9.7 fL Normal 9.0-12.7 [facility] Comment on above: Order Comment: Speci men Type: BLOOD SPECIMEN Order[facility]: [facility] Address: [address] [place] [address] Performed By: #### 5 7021-8 #### [facility] CLIA [id number] [address] [place] [address] [place] Platelets (Bld) [#/Vol] 138 10*3/uL Low 150-400 [facility] Comment on above: Order Comment: Speci men Type: BLOOD SPECIMEN Ordering Facility: [facility] Address: [address] [place] [address] Performed By: #### 5 7021-8 #### [facility] CLIA [id number] [address] [place] [address] [place] RBC (Bld) [#/Vol] 3.68 10*6/uL Low 4.20-6.00 [facility] Comment on above: Order Comment: Speci men Type: BLOOD SPECIMEN Ordering [facility]: [facility] Address: [address] [place] [address] Performed By: #### 5 7021-8 #### [facility] CLIA [id number] [address] [place] [address] [place] WBC (Bld) [#/Vol] 11.73 10*3/uL High 3.70-11.00 [facility] Comment on above: Order Comment: Speci men Type: BLOOD SPECIMEN Ordering Facility: [facility] Address: [address] [place] [address] Performed By: #### 5 7021-8 #### [facility] CLIA [id number] [address] [place] [address] [place] CONSULTon 10-30-2023 CONSULT HNO ID: [id number] Author: RAFAEL GIRALDO MD Service: Urology Author [...] the meatal orifice was visualized, an 8 [place] Haskins catheter was sterilely placed. However, the [...] Dr. Jay Alan MD Resident PGY-2 Urology [facility] Pager [phone] After hours and on weekend region manager pager [phone] Johnny Devine is a 33 year [...] the meatal orifice was visualized, an 8 [place] Haskins catheter was sterilely placed. CYU was [...] CONGESTIONDisp: Rfl: guanFACINE (INTUNIV ER) 4 mg [id number] 4 mg by mouth onc (more content not included)... Normal [facility] Magnesium SerPl-mCncon 10-29 Magnesium [Mass/Vol] 2.0 mg/dL Normal 1.7-2.3 [facility] Comment on above: Order Comment: Speci men Type: BLOOD SPECIMENOrdering Facility: [facility] Address: [address] [place] [address] Performed By: #### 2 4321-2, 11789-1, 2777-1 ####[facility] [id number] [place] [address] [place] NURSING PROGon 10-30-2023 NURSING PROG HNO ID: [id number] Author: SHAHRIAR FARFAN RN Service: Nursing Author Type: Registered Nurse Type: Nursing Progress Note Filed: 10/30/2023 09:52 Note Text: Pt awake, opens eyes spontaneously, MEDINA to command, generalized weakness. Nonverbal at baseline. VSS. Appears comfortable, no grimacing, resting Normal [facility] NURSING PROG HNO ID: [id number] Author: SHAHRIAR FARFAN RN Service: Nursing Author [...] effective in protecting the patient's safety: Alarms, Veneer Lathe Operator/Sitter, Bed in Low/Locked Position Next, a comprehensive assessment was performed and warranted placing the patient in Soft Bilateral Wrists, the least restrictive restraint needed to protect the patient's safety. Ongoing safety assessments and evaluation for earliest removal of restraints will be performed. DATE: October 30, 2023 TIME: 9:48 AM Shahriar Farfan RN Normal [facility] NURSING PROG HNO ID: [id number] Author: LEONARD FRANCIS JR, RN Service: Nursing Author Type: Registered Nurse Type: Nursing Progress Note Filed: 10/30/2023 01:11 Note Text: 2200 PM: PT does not have have a haskins catheter post op. Per report, prior to OR PT was admitted from OSH with a pediatric haskins in place due to difficulties with normal catheter. 19131 Gen surg notified. PT is clean and dry, will bladder scan. 2245 PM: Bladder scan for 485, 915, 999 cc. PT still resting comfortably. 0000 AM: Dr. Leeann Telles at bedside. Pediatric haskins attempted x2 with no success. PT unable to tolerate catheter advancement, restraints still applied. Urology will be consulted per . Will CTM. 003 AM: Restraints removed. 0040 AM: Urology and Gen surg at bedside Leonard PINEDA. Normal [facility] OPERATIVE NOon 10-30-2023 OPERATIVE NO HNO ID: [id number] Author: HERMAN JOHNSON MD Service: Urology Author Type: Resident Type: Operative Report Filed: 10/30/2023 09:08 Note Text: Attestation signed by Oscar Ruiz MD at 10/30/2023 9:20 AM Attestation The primary proceduralist, Wale Thomas, performed the entire procedure with the assistance of Dr. Johnson. I agree with the documentation above. ON LICENSE OF [facility] UROLOGY OPERATIVE REPORT Patient Name: Johnny Devine Patient Log ID: [id number] Surgery Date: 10/30/2023 Incision/Procedure Start Time: 8:03 AM Incision Close/Procedure End Time: 8:17 AM Surgeon(s) and Recruiter Account Manager(s): Surgeon(s) and Role: * Osacr Ruiz MD - Primary * Herman Johnson [...] I agree with the documentation above. Normal [facility] Phosphate SerPl-mCncon 10-29 Phosphate [Mass/Vol] 2.2 mg/dL Low 2.7-4.8 [facility] Comment on above: Order Comment: Speci men Type: BLOOD SPECIMENOrdering Facility: [facility] Address: [address] [place] [address] Performed By: #### 2 4321-2, 49289-2, 2777-1 ####[facility] [id number] [address] [address] [place] XR ABDOMEN 1V [...] likely an ileus. Sigmoid distention appears improved Draftsperson: [employer] Transcribe Date/Time: Oct 30 2023 7:41A Dictated by : RYAN MORRIS MD This examination was interpreted and the report reviewed and electronically signed by: RYAN MORRIS MD on Oct 30 2023 7:43AM EST [id number] Normal [facility] ANES POSTPROC EVALon 024 ANES POSTPROC EVAL HNO ID: [id number] Author: DORIE TENA DO Service: ? Author Type: Anesthesiologist Type: Anesthesia Postprocedure Evaluation Filed: 10/29/2023 14:37 Note Text: POST ANESTHESIA EVALUATION NOTE : 1990 Procedure Summary Date: 10/29/23 Room / Location: [address] [facility] Anesthesia Start: 0948 Anesthesia [...] October 29, 2023 TIME: 2:34 PM CSN: [id number] Normal [facility] ANES PRE-OPon 10-29-2023 ANES PRE-OP HNO ID: [id number] Author: KENZIE MORE APRN.GAS INSPECTOR Service: ? Author Type: Nurse [employer] Service Technician Type: Anesthesia Preprocedure Evaluation Filed: 10/29/2023 09:58 Note Text: ANESTHESIOLOGY DAY OF SURGERY NOTE : 1990 Procedure Information Anesthesia Start Date/Time: 10/29/23947 Procedure: EXPLORATORY LAPAROTOMY (Abdomen) Location: MAIN [facility] Surgeons: Samuel Robni MD There is no height or weight [...] and consent discussed: yes. Patient / Responsible Democrat agrees to proceed: yes Patient / Surrogate [...] HR - [Held on Transfer] phenol 1 [place] (CHLORASEPTIC) 1 [place] MUCOUS MEMBRANE (TOPICAL MOUTH AND THROAT) q [...] - Sennosid (more content not included)... Normal [facility] BRIEF OP NOTon 10-29-2023 BRIEF OP NOT HNO ID: [id number] Author: PA ALICEA MD Service: General Surgery Author Type: Resident Type: Brief Op Note Filed: 10/29/2023 11:47 Note Text: DDSI BRIEF OP NOTE LOG ID: [id number] SURGERY/PROCEDURE DATE: 10/29/2023 INCISION/PROCEDURE START TIME: 10:25 AM INCISION CLOSE/PROCEDURE END TIME: 11:40 AM SURGEON(S)/PROCEDURAL IST(S) AND DEVELOPMENT MECHANIC(S): Surgeon(s) and Role: * Samuel Robin MD [...] 29, 2023 TIME: 11:45 AM PAGER/CONTACT #: [facility] BRIEF OP NOT HNO ID: [id number] Author: DANTE CHERRY MD Service: General Surgery Author Type: Resident Type: Brief Op Note Filed: 10/29/2023 11:44 Note Text: BRIEF OPERATIVE / PROCEDURE NOTE LOG ID: [id number] SURGERY/PROCEDURE DATE: 10/29/2023 INCISION/PROCEDURE START TIME: 10:25 AM INCISION CLOSE/PROCEDURE END TIME: 11:40 AM SURGEON(S)/PROCEDURAL IST(S) AND DEVELOPMENT MECHANIC(S): Surgeon(s) and Role: * Samuel Robin MD [...] October 29, 2023 TIME: 11:36 AM Normal [facility] BRIEF OP NOT HNO ID: [id number] Author: PA ALICEA MD Service: General Surgery Author Type: Resident Type: Brief Op Note Filed: 10/29/2023 08:42 Note Text: Created in Error Normal [facility] Basic metabolic 2000 panelon 10-29-2023 Anion gap [Moles/Vol] 11 mmol/L Normal 9-18 [facility] Comment on above: Order Comment: Speci men Type: BLOOD SPECIMEN Ordering Facility: [facility] Address: [address] [place] [address] Performed By: #### 2 777-1, , #### [facility] CLIA [id number] [address] [place] [address] [place] Calcium [Mass/Vol] 7.4 mg/dL Low 8.5-10.2 [facility] Comment on above: Order Comment: Speci men Type: BLOOD SPECIMEN Ordering Facility: [facility] Address: [address] [place] [address] Performed By: #### 2 777-1, , #### [facility] CLIA [id number] [address] [place] [address] [place] Chloride [Moles/Vol] 112 mmol/L High 97-105 [facility] Comment on above: Order Comment: Speci men Type: BLOOD SPECIMEN Ordering Facility: [facility] Address: [address] [place] [address] Performed By: #### 2 777-1, 78207-0, #### [facility] CLIA [id number] [address] [place] [address] [place] CO2 [Moles/Vol] 21 mmol/L Low 22-30 [facility] Comment on above: Order Comment: Speci men Type: BLOOD SPECIMEN Ordering Facility: [facility] Address: [address] [place] [address] Performed By: #### 2 777-1, 49222-2, #### [facility] CLIA [id number] [address] [place] [address] [place] Creatinine [Mass/Vol] 0.69 mg/dL Low 0.73-1.22 [facility] Comment on above: Order Comment: Speci men Type: BLOOD SPECIMEN Ordering Facility: [facility] Address: [address] [place] [address] Performed By: #### 2 777-1, 57902-4, #### [facility] CLIA [id number] [address] [place] [address] [place] Creatinine and Glomerular filtration rate.predicted panel (S/P/Bld) 127 mL/min/1.73m??? Normal >=60 [facility] Comment on above: Order Comment: Speci men Type: BLOOD SPECIMEN Ordering Facility: [facility] Address: [address] [place] [address] Result Comment: Lor mated Glomerular Filtration Rate [...] actual GFR. Performed By: #### 2 777-1, 57628-2, #### [facility] CLIA [id number] [address] [place] [address] [place] Glucose [Mass/Vol] 115 mg/dL High 74-99 [facility] Comment on above: Order Comment: Speci men Type: BLOOD SPECIMEN Ordering Facility: [facility] Address: [address] [place] [address] Result Comment: The [place] [employer] (ADA) provides guidance for cutoff [...] Standards of Medical Care in Diabetes 2016, [place] [employer]. Diabetes Care. 2016.39(Suppl 1). Performed By: #### 2 777-1, 06349-3, #### [facility] CLIA [id number] [address] [place] [address] [place] Potassium [Moles/Vol] 3.8 mmol/L Normal 3.7-5.1 [facility] Comment on above: Order Comment: Speci men Type: BLOOD SPECIMEN Ordering Facility: [facility] Address: [address] [place] [address] Performed By: #### 2 777-1, 45422-1, #### [facility] CLIA [id number] [address] [place] [address] [place] Sodium [Moles/Vol] 144 mmol/L Normal 136-144 [facility] Comment on above: Order Comment: Speci men Type: BLOOD SPECIMEN Ordering Facility: [facility] Address: [address] [place] [address] Performed By: #### 2 777-1, 07342-8, 52034-8 #### [facility] CLIA [id number] [address] [place] [address] [place] Urea nitrogen [Mass/Vol] 13 mg/dL Normal 9-24 [facility] Comment on above: Order Comment: Speci men Type: BLOOD SPECIMEN Ordering Facility: [facility] Address: [address] [place] [address] Performed By: #### 2 777-1, 64862-8, #### [facility] CLIA [id number] [address] [place] [address] [place] CBC W Auto Differential pane l (Bld)on 10-29-2023 Basophils (Bld) [#/Vol] 10*3/uL Normal <0.11 [facility] Comment on above: Order Comment: Speci men Type: BLOOD SPECIMEN Ordering Facility: [facility] Address: [address] [place] [address] Performed By: #### 5 7021-8 #### [facility] CLIA [id number] [address] [place] [address] [place] Basophils/100 WBC (Bld) 0.1 % Normal [facility] Comment on above: Order Comment: Speci men Type: BLOOD SPECIMEN Ordering Facility: [facility] Address: [address] [place] [address] Performed By: #### 5 7021-8 #### [facility] CLIA [id number] [address] [place] [address] [place] Differential cell count method Nom (Bld) Auto Normal [facility] Comment on above: Order Comment: Speci men Type: BLOOD SPECIMEN Ordering Facility: [facility] Address: [address] [place] [address] Performed By: #### 5 7021-8 #### [facility] CLIA [id number] [address] [place] [address] [place] Eosinophils (Bld) [#/Vol] 10*3/uL Normal <0.46 [facility] Comment on above: Order Comment: Speci men Type: BLOOD SPECIMEN Ordering Facility: [facility] Address: [address] [place] [address] Performed By: #### 5 7021-8 #### [facility] CLIA [id number] [address] [place] [address] [place] Eosinophils/100 WBC (Bld) 0.1 % Normal [facility] Comment on above: Order Comment: Speci men Type: BLOOD SPECIMEN Ordering Facility: [facility] Address: [address] [place] [address] Performed By: #### 5 7021-8 #### [facility] CLIA [id number] [address] [place] [address] [place] Erythrocyte distribution width (RBC) [Ratio] 14.6 % Normal 11.5-15.0 [facility] Comment on above: Order Comment: Speci men Type: BLOOD SPECIMEN Ordering Facility: [facility] Address: [address] [place] [address] Performed By: #### 5 7021-8 #### [facility] CLIA [id number] [address] [place] [address] [place] Hematocrit (Bld) [Volume fraction] 33.0 % Low 39.0-51.0 [facility] Comment on above: Order Comment: Speci men Type: BLOOD SPECIMEN Ordering Facility: [facility] Address: [address] [place] [address] Performed By: #### 5 7021-8 #### [facility] CLIA [id number] [address] [place] [address] [place] Hemoglobin (Bld) [Mass/Vol] 10.5 g/dL Low 13.0-17.0 [facility] Comment on above: Order Comment: Speci men Type: BLOOD SPECIMEN Ordering Facility: [facility] Address: [address] [place] [address] Performed By: #### 5 7021-8 #### [facility] CLIA [id number] [address] [place] [address] [place] Immature granulocytes (Bld) [#/Vol] 0.05 10*3/uL Normal <0.10 [facility] Comment on above: Order Comment: Speci men Type: BLOOD SPECIMEN Ordering Facility: [facility] Address: [address] [place] [address] Performed By: #### 5 7021-8 #### [facility] CLIA [id number] [address] [place] [address] [place] Immature granulocytes/100 WBC (Bld) 0.4 % Normal [facility] Comment on above: Order Comment: Speci men Type: BLOOD SPECIMEN Ordering Facility: [facility] Address: [address] [place] [address] Performed By: #### 5 7021-8 #### [facility] CLIA [id number] [address] [place] [address] [place] Lymphocytes (Bld) [#/Vol] 1.25 10*3/uL Normal 1.00-4.00 [facility] Comment on above: Order Comment: Speci men Type: BLOOD SPECIMEN Ordering Facility: [facility] Address: [address] [place] [address] Performed By: #### 5 7021-8 #### [facility] CLIA [id number] [address] [place] [address] [place] Lymphocytes/100 WBC (Bld) 8.9 % Normal [facility] Comment on above: Order Comment: Speci men Type: BLOOD SPECIMEN Ordering Facility: [facility] Address: [address] [place] [address] Performed By: #### 5 7021-8 #### [facility] CLIA [id number] [address] [place] [address] [place] MCH (RBC) [Entitic mass] 26.9 pg Normal 26.0-34.0 [facility] Comment on above: Order Comment: Speci men Type: BLOOD SPECIMEN Ordering Facility: [facility] Address: [address] [place] [address] Performed By: #### 5 7021-8 #### [facility] CLIA [id number] [address] [place] [address] [place] MCHC (RBC) [Mass/Vol] 31.8 g/dL Normal 30.5-36.0 [facility] Comment on above: Order Comment: Speci men Type: BLOOD SPECIMEN Ordering Facility: [facility] Address: [address] [place] [address] Performed By: #### 5 7021-8 #### [facility] CLIA [id number] [address] [place] [address] [place] MCV (RBC) [Entitic vol] 84.6 fL Normal 80.0-100.0 [facility] Comment on above: Order Comment: Speci men Type: BLOOD SPECIMEN Ordering Facility: [facility] Address: [address] [place] [address] Performed By: #### 5 7021-8 #### [facility] CLIA [id number] [address] [place] [address] [place] Monocytes (Bld) [#/Vol] 1.50 10*3/uL High <0.87 [facility] Comment on above: Order Comment: Speci men Type: BLOOD SPECIMEN Ordering Facility: [facility] Address: [address] [place] [address] Performed By: #### 5 7021-8 #### [facility] CLIA [id number] [address] [place] [address] [place] Monocytes/100 WBC (Bld) 10.6 % Normal [facility] Comment on above: Order Comment: Speci men Type: BLOOD SPECIMEN Ordering Facility: [facility] Address: [address] [place] [address] Performed By: #### 5 7021-8 #### [facility] CLIA [id number] [address] [place] [address] [place] Neutrophils (Bld) [#/Vol] 11.26 10*3/uL High 1.45-7.50 [facility] Comment on above: Order Comment: Speci men Type: BLOOD SPECIMEN Ordering Facility: [facility] Address: [address] [place] [address] Performed By: #### 5 7021-8 #### [facility] CLIA [id number] [address] [place] [address] [place] Neutrophils/100 WBC (Bld) 79.9 % Normal [facility] Comment on above: Order Comment: Speci men Type: BLOOD SPECIMEN Ordering Facility: [facility] Address: [address] [place] [address] Performed By: #### 5 7021-8 #### [facility] CLIA [id number] [address] [place] [address] [place] Nucleated RBC (Bld) [#/Vol] 10*3/uL Normal <0.01 [facility] Comment on above: Order Comment: Speci men Type: BLOOD SPECIMEN Ordering Facility: [facility] Address: [address] [place] [address] Performed By: #### 5 7021-8 #### [facility] CLIA [id number] [address] [place] [address] [place] Nucleated RBC/100 WBC (Bld) [Ratio] 0.0 /100 WBC Normal [facility] Comment on above: Order Comment: Speci men Type: BLOOD SPECIMEN Ordering Facility: [facility] Address: [address] [place] [address] Performed By: #### 5 7021-8 #### [facility] CLIA [id number] [address] [place] [address] [place] Platelet mean volume (Bld) [Entitic vol] 9.4 fL Normal 9.0-12.7 [facility] Comment on above: Order Comment: Speci men Type: BLOOD SPECIMEN Ordering Facility: [facility] Address: [address] [place] [address] Performed By: #### 5 7021-8 #### [facility] CLIA [id number] [address] [place] [address] [place] Platelets (Bld) [#/Vol] 151 10*3/uL Normal 150-400 [facility] Comment on above: Order Comment: Speci men Type: BLOOD SPECIMEN Ordering Facility: [facility] Address: [address] [place] [address] Performed By: #### 5 7021-8 #### [facility] CLIA [id number] [address] [place] [address] [place] RBC (Bld) [#/Vol] 3.90 10*6/uL Low 4.20-6.00 [facility] Comment on above: Order Comment: Speci men Type: BLOOD SPECIMEN Ordering Facility: [facility] Address: [address] [place] [address] Performed By: #### 5 7021-8 #### [facility] CLIA [id number] [address] [place] [address] [place] WBC (Bld) [#/Vol] 14.09 10*3/uL High 3.70-11.00 [facility] Comment on above: Order Comment: Speci men Type: BLOOD SPECIMEN Ordering Facility: [facility] Address: [address] [place] [address] Performed By: #### 5 7021-8 #### [facility] CLIA [id number] [address] [place] [address] [place] CONFIRM BLOOD TYPEon 024 ABO A Normal [facility] Comment on above: Order Comment: Speci men Type: BLOOD SPECIMENOrdering Facility: [facility] Address: [address] [place] [address] Performed By: #### C ONABO ####[facility] [id number] [place] [address] [place] Rh Nom (Bld) Positive Normal [facility] Comment on above: Order Comment: Speci men Type: BLOOD SPECIMENOrdering Facility: [facility] Address: [address] [place] [address] Performed By: #### C ONABO ####[facility] BLOOD BANKCLIA [id number] [place] [address] [place] Magnesium SerPl-mCncon 10-28 Magnesium [Mass/Vol] 1.8 mg/dL Normal 1.7-2.3 [facility] Comment on above: Order Comment: Speci men Type: BLOOD SPECIMEN Ordering Facility: [facility] Address: [address] [place] [address] Performed By: #### 2 777-1, 61292-2, 62335-1 #### [facility] CLIA [id number] [address] [place] [address] [place] NURSING PROGon 10-29-2023 NURSING PROG HNO ID: [id number] Author: BAILEY HUTSON RN Service: Nursing Author Type: Registered Nurse Type: Nursing Progress Note Filed: 10/29/2023 18:29 Note Text: [id number] [place] [phone] to notify of patient's current temp of 100.2 F. Will continue to monitor. Normal [facility] NURSING PROG HNO ID: [id number] Author: BAILEY HUTSON RN Service: Nursing Author Type: Registered Nurse Type: Nursing Progress Note Filed: 10/29/2023 17:35 Note Text: Nursing Progress: Topic: RESTRAINT NON-VIOLENT PATIENT NAME: Johnny Devine Patient Location: [place] [address] Room: [place] [address] The patient demonstrates Attempting to Remove Medical [...] the patient's safety: Bed in Low/Locked Position, Veneer Lathe Operator/Sitter, Diversion Activities, IV/Feeding Bag/Pump Out of [...] 2023 TIME: 5:07 PM Bailey Hutson RN [facility] NURSING PROG HNO ID: [id number] Author: BAILEY HUTSON RN Service: Nursing Author Type: Registered Nurse Type: Nursing Progress Note Filed: 10/29/2023 15:25 Note Text: 1518 [place] [phone] to request indwelling Haskins for incontinence and skin breakdown management. Will continue to monitor. 1523 Patient repeatedly attempt to remove NG tube despite the sitter at the bedside. Primary team notified with request for order for bilateral soft wrist restraint. Will continue to monitor. [facility] NURSING PROG HNO ID: [id number] Author: LOIMPIA MAGALLON RN Service: Nursing Author Type: Registered Nurse Type: Nursing Progress Note Filed: 10/29/2023 13:37 Note Text: Pt resting quietly with patient alcohol and drug counselor at bedside. Several attempts to reach for NG tube, patient relaxes and moves hand away from from drain if you say hand down Per brother Johnnieion. This has been effective. Pt resting quietly, no facial grimacing, posturing, or guarding. Vss, resp rate even and non labored. Pt has returned to presurgical baseline and is being transferred back to [facility] in stable condition. Opening eyes when name is called. Brothcyrus Mandujano (guardian) updated prior to patient transfer. Normal [facility] OPERATIVE NOon 10-29-2023 OPERATIVE NO HNO ID: [id number] Author: SAMUEL ROBIN MD Service: General Surgery Author Type: Physician Type: Operative Report Filed: 10/29/2023 13:52 Note Text: OPERATIVE/PROCEDURE REPORT LOG ID: [id number] SURGERY/PROCEDURE DATE: 10/29/2023 INCISION/PROCEDURE START TIME: 10:25 AM INCISION CLOSE/PROCEDURE END TIME: 11:40 AM SURGEON(S)/PROCEDURAL IST(S) AND DEVELOPMENT MECHANIC(S): Surgeon(s) and Role: * Samuel Robin MD [...] for the entirety of the case. Normal [facility] Phosphate SerPl-mCncon 10-28 Phosphate [Mass/Vol] 2.3 mg/dL Low 2.7-4.8 [facility] Comment on above: Order Comment: Speci men Type: BLOOD SPECIMEN Ordering Facility: [facility] Address: [address] [place] [address] Performed By: #### 2 777-1, 27375-1, 22065-4 #### [facility] CLIA [id number] [address] [place] [address] [place] SEPSIS LACTATEon 10-29-2023 Lactate [Moles/Vol] 1.2 mmol/L Normal <=2.0 [facility] Comment on above: Order Comment: Speci men Type: BLOOD SPECIMENOrdering Facility: [facility] Address: [address] [place] [address] Performed By: #### S LACT ####[facility] [id number] [place] [address] [place] Order Comment: Speci men Type: BLOOD SPECIMEN Ordering Facility: [facility] Address: [address] [place] [address] Performed By: #### 2 777-1, 08160-4, #### [facility] CLIA [id number] [address] [place] [address] [place] Urinalysis complete panel (U )on 10-29-2023 Bacteria LM.HPF (Urine sed) [#/Area] Negative Normal Negative [facility] Comment on above: Order Comment: Speci men Type: BLOOD SPECIMEN Ordering Facility: [facility] Address: [address] [place] [address] Performed By: #### 2 777-1, 95086-4, #### [facility] CLIA [id number] [address] [place] [address] [place] Bilirubin Ql (U) Negative Normal Negative [facility] Comment on above: Order Comment: Speci men Type: BLOOD SPECIMEN Ordering Facility: [facility] Address: [address] [place] [address] Performed By: #### 2 777-1, 45652-4, #### [facility] CLIA [id number] [address] [place] [address] [place] Clarity (Unsp spec) Clear Normal Clear [facility] Comment on above: Order Comment: Speci men Type: BLOOD SPECIMEN Ordering Facility: [facility] Address: [address] [place] [address] Performed By: #### 2 777-1, 01356-1, #### [facility] CLIA [id number] [address] [place] [address] [place] Color (U) Yellow Normal Yellow [facility] Comment on above: Order Comment: Speci men Type: BLOOD SPECIMEN Ordering Facility: [facility] Address: [address] [place] [address] Performed By: #### 2 777-1, 44678-9, #### [facility] CLIA [id number] [address] [place] [address] [place] Epithelial cells LM.HPF (Urine sed) [#/Area] None Seen Normal [facility] Comment on above: Order Comment: Speci men Type: BLOOD SPECIMEN Ordering Facility: [facility] Address: [address] [place] [address] Performed By: #### 2 777-1, , #### [facility] CLIA [id number] [address] [place] [address] [place] Glucose Test strip (U) [Mass/Vol] Negative Normal Negative [facility] Comment on above: Order Comment: Speci men Type: BLOOD SPECIMEN Ordering Facility: [facility] Address: [address] [place] [address] Performed By: #### 2 777-1, 04267-5, #### [facility] CLIA [id number] [address] [place] [address] [place] Hemoglobin Ql (U) 2+ Abnormal Negative [facility] Comment on above: Order Comment: Speci men Type: BLOOD SPECIMEN [facility] [facility] Address: [address] [place] [address] Performed By: #### 2 777-1, 18125-8, #### [facility] CLIA [id number] [address] [place], [place] [id number] [place] Hyaline casts (Urine sed) [#/Area] 0 /[LPF] Normal 0 /LPF [facility] Comment on above: Order Comment: Speci men Type: BLOOD SPECIMEN Ordering Facility: [facility] Address: [address] [place] [address] Performed By: #### 2 777-1, 50301-6, #### [facility] CLIA [id number] [address] [place] [address] [place] Ketones Ql (U) Negative Normal Negative [facility] Comment on above: Order Comment: Speci men Type: BLOOD SPECIMEN Ordering Facility: [facility] Address: [address] [place] [address] Performed By: #### 2 777-1, , #### [facility] CLIA [id number] [address] [place] [address] [place] Leukocyte esterase Test strip Ql (U) Negative Normal Negative [facility] Comment on above: Order Comment: Speci men Type: BLOOD SPECIMEN Ordering Facility: [facility] Address: [address] [place] [address] Performed By: #### 2 777-1, , #### [facility] CLIA [id number] [address] [place], [place] [address] [place] Nitrite Ql (U) Negative Normal Negative [facility] Comment on above: Order Comment: Speci men Type: BLOOD SPECIMEN Ordering Facility: [facility] Address: [address] [place] [address] Performed By: #### 2 777-1, , #### [facility] CLIA [id number] [address] [place] [address] [place] pH (U) 6.5 [pH] Normal <8.5 [facility] Comment on above: Order Comment: Speci men Type: BLOOD SPECIMEN Ordering Facility: [facility] Address: [address] [place] [address] Performed By: #### 2 777-1, 63227-1, #### [facility] CLIA [id number] [address] [place] [address] [place] Protein (U) [Mass/Vol] Trace Abnormal Negative [facility] Comment on above: Order Comment: Speci men Type: BLOOD SPECIMEN Ordering Facility: [facility] Address: [address] [place] [address] Performed By: #### 2 777-1, 51632-9, #### [facility] CLIA [id number] [address] [place] [address] [place] RBC LM.HPF (Urine sed) [#/Area] 6-10 /HPF Abnormal 0-2 /HPF [facility] Comment on above: Order Comment: Speci men Type: BLOOD SPECIMEN Ordering Facility: [facility] Address: [address] [place] [address] Performed By: #### 2 777-1, , #### [facility] CLIA [id number] [address] [place] [address] [place] Specific gravity (U) [Rel density] 1.021 Normal 1.005-1.030 [facility] Comment on above: Order Comment: Speci men Type: BLOOD SPECIMEN Ordering Facility: [facility] Address: [address] [place] [address] Performed By: #### 2 777-1, , #### [facility] CLIA [id number] [address] [place] [address] [place] Urobilinogen Ql (U) 0.2 EU/dL Normal 0.2-1.0 EU/dL [facility] Comment on above: Order Comment: Speci men Type: BLOOD SPECIMEN Ordering Facility: [facility] Address: [address] [place] [address] Performed By: #### 2 777-1, 91341-9, #### [facility] CLIA [id number] [address] [place] [address] [place] WBC LM.HPF (Urine sed) [#/Area] 0-5 /HPF Normal 0-5 /HPF [facility] Comment on above: Order Comment: Speci men Type: BLOOD SPECIMEN Ordering Facility: [facility] Address: [address] [place] [address] Performed By: #### 2 777-1, 05674-9, #### [facility] CLIA [id number] [address] [place] [address] [place] XR CHEST 1V [...] are unremarkable. Other: . IMPRESSION: See result. Draftsperson: SUSI Transcribe Date/Time: Oct 29 2023 12:20A Dictated by : SHAE WORTHY MD This examination was interpreted and the report reviewed and electronically signed by: SHEA WORTHY MD on Oct 29 2023 12:22AM EST [id number] Normal [facility] aPTT PPPon 10-29-2023 aPTT Coag (PPP) [Time] 26.3 s Normal 23.0-32.4 [facility] Comment on above: Order Comment: Speci men Type: BLOOD SPECIMEN Ordering Facility: [facility] Address: [address] [place] [address] Performed By: #### 2 777-1, 47899-4, #### [facility] CLIA [id number] [address] [place] [address] [place] Basic metabolic 2000 panelon 10-28-2023 Anion gap [Moles/Vol] 12 mmol/L Normal 9-18 [facility] Comment on above: Order Comment: Speci men Type: BLOOD SPECIMEN Ordering Facility: [facility] Address: [address] [place] [address] Performed By: #### 2 777-1, 34081-8, #### [facility] CLIA [id number] [address] [place] [address] [place] Calcium [Mass/Vol] 7.8 mg/dL Low 8.5-10.2 [facility] Comment on above: Order Comment: Speci men Type: BLOOD SPECIMEN Ordering Facility: [facility] Address: [address] [place] [address] Performed By: #### 2 777-1, 52464-5, #### [facility] CLIA [id number] [address] [place] [address] [place] Chloride [Moles/Vol] 110 mmol/L High 97-105 [facility] Comment on above: Order Comment: Speci men Type: BLOOD SPECIMEN Ordering Facility: [facility] Address: [address] [place] [address] Performed By: #### 2 777-1, 27652-3, #### [facility] CLIA [id number] [address] [place] [address] [place] CO2 [Moles/Vol] 15 mmol/L Low 22-30 [facility] Comment on above: Order Comment: Specdeshawn zuñiga Type: BLOOD SPECIMEN Ordering Facility: [facility] Address: [address] [place] [address] Performed By: #### 2 777-1, 01502-8, #### [facility] CLIA [id number] [address] [place] [address] [place] Creatinine [Mass/Vol] 0.72 mg/dL Low 0.73-1.22 [facility] Comment on above: Order Comment: Speci yogesh Type: BLOOD SPECIMEN Ordering Facility: [facility] Address: [address] [place] [address] Performed By: #### 2 777-1, 74681-8, #### [facility] CLIA [id number] [address] [place] [address] [place] Creatinine and Glomerular filtration rate.predicted panel (S/P/Bld) 125 mL/min/1.73m??? Normal >=60 [facility] Comment on above: Order Comment: Sana zuñiga Type: BLOOD SPECIMEN Ordering Facility: [facility] Address: [address] [place] [address] Result Comment: Lor mated Glomerular Filtration Rate [...] actual GFR. Performed By: #### 2 777-1, 52603-7, #### [facility] CLIA [id number] [address] [place] [address] [place] Glucose [Mass/Vol] 116 mg/dL High 74-99 [facility] Comment on above: Order Comment: Sana zuñiga Type: BLOOD SPECIMEN Ordering Facility: [facility] Address: [address] [place] [address] Result Comment: The [place] [employer] (ADA) provides guidance for cutoff [...] Standards of Medical Care in Diabetes 2016, [place] [employer]. Diabetes Care. 2016.39(Suppl 1). Performed By: #### 2 777-1, 30540-6, #### [facility] CLIA [id number] [address] [place] [address] [place] Potassium [Moles/Vol] 3.9 mmol/L Normal 3.7-5.1 [facility] Comment on above: Order Comment: Sana zuñiga Type: BLOOD SPECIMEN Ordering Facility: [facility] Address: [address] [place] [address] Performed By: #### 2 777-1, 44996-2, #### [facility] CLIA [id number] [address] [place] [address] [place] Sodium [Moles/Vol] 137 mmol/L Normal 136-144 [facility] Comment on above: Order Comment: Sana zuñiga Type: BLOOD SPECIMEN Ordering Facility: [facility] Address: [address] [place] [address] Performed By: #### 2 777-1, 61061-6, #### [facility] CLIA [id number] [address] [place] [address] [place] Urea nitrogen [Mass/Vol] 17 mg/dL Normal 9-24 [facility] Comment on above: Order Comment: Speci men Type: BLOOD SPECIMEN Ordering Facility: [facility] Address: [address] [place] [address] Performed By: #### 2 777-1, 85215-1, #### [facility] CLIA [id number] [address] [place] [address] [place] CBC W Auto Differential pane l (Bld)on 10-28-2023 Basophils (Bld) [#/Vol] 10*3/uL Normal <0.11 [facility] Comment on above: Order Comment: Speci men Type: BLOOD SPECIMEN Ordering Facility: [facility] Address: [address] [place] [address] Performed By: #### 2 777-1, 24472-6, #### [facility] CLIA [id number] [address] [place] [address] [place] Basophils/100 WBC (Bld) 0.1 % Normal [facility] Comment on above: Order Comment: Speci men Type: BLOOD SPECIMEN Ordering Facility: [facility] Address: [address] [place] [address] Performed By: #### 2 777-1, 75397-4, #### [facility] CLIA [id number] [address] [place] [address] [place] Differential cell count method Nom (Bld) Auto Normal [facility] Comment on above: Order Comment: Speci men Type: BLOOD SPECIMEN Ordering Facility: [facility] Address: [address] [place] [address] Performed By: #### 2 777-1, 44305-2, #### [facility] CLIA [id number] [address] [place] [address] [place] Eosinophils (Bld) [#/Vol] 10*3/uL Normal <0.46 [facility] Comment on above: Order Comment: Speci men Type: BLOOD SPECIMEN Ordering Facility: [facility] Address: [address] [place] [address] Performed By: #### 2 777-1, 87906-9, #### [facility] CLIA [id number] [address] [place] [address] [place] Eosinophils/100 WBC (Bld) 0.0 % Normal [facility] Comment on above: Order Comment: Speci men Type: BLOOD SPECIMEN Ordering Facility: [facility] Address: [address] [place] [address] Performed By: #### 2 777-1, 67657-8, #### [facility] CLIA [id number] [address] [place] [address] [place] Erythrocyte distribution width (RBC) [Ratio] 14.4 % Normal 11.5-15.0 [facility] Comment on above: Order Comment: Speci men Type: BLOOD SPECIMEN Ordering Facility: [facility] Address: [address] [place] [address] Performed By: #### 2 777-1, , #### [facility] CLIA [id number] [address] [place] [address] [place] Hematocrit (Bld) [Volume fraction] 38.3 % Low 39.0-51.0 [facility] Comment on above: Order Comment: Speci men Type: BLOOD SPECIMEN Ordering Facility: [facility] Address: [address] [place] [address] Performed By: #### 2 777-1, 31394-4, #### [facility] CLIA [id number] [address] [place] [address] [place] Hemoglobin (Bld) [Mass/Vol] 12.0 g/dL Low 13.0-17.0 [facility] Comment on above: Order Comment: Speci men Type: BLOOD SPECIMEN Ordering Facility: [facility] Address: [address] [place] [address] Performed By: #### 2 777-1, 94834-9, #### [facility] CLIA [id number] [address] [place] [address] [place] Immature granulocytes (Bld) [#/Vol] 0.08 10*3/uL Normal <0.10 [facility] Comment on above: Order Comment: Speci men Type: BLOOD SPECIMEN Ordering Facility: [facility] Address: [address] [place] [address] Performed By: #### 2 777-1, 60260-1, #### [facility] CLIA [id number] [address] [place] [address] [place] Immature granulocytes/100 WBC (Bld) 0.6 % Normal [facility] Comment on above: Order Comment: Speci men Type: BLOOD SPECIMEN Ordering Facility: [facility] Address: [address] [place] [address] Performed By: #### 2 777-1, 86723-0, #### [facility] CLIA [id number] [address] [place] [address] [place] Lymphocytes (Bld) [#/Vol] 1.19 10*3/uL Normal 1.00-4.00 [facility] Comment on above: Order Comment: Speci men Type: BLOOD SPECIMEN Ordering Facility: [facility] Address: [address] [place] [address] Performed By: #### 2 777-1, 52884-5, #### [facility] CLIA [id number] [address] [place] [address] [place] Lymphocytes/100 WBC (Bld) 8.2 % Normal [facility] Comment on above: Order Comment: Speci men Type: BLOOD SPECIMEN Ordering Facility: [facility] Address: [address] [place] [address] Performed By: #### 2 777-1, 76603-0, #### [facility] CLIA [id number] [address] [place] [address] [place] MCH (RBC) [Entitic mass] 26.5 pg Normal 26.0-34.0 [facility] Comment on above: Order Comment: Speci men Type: BLOOD SPECIMEN Ordering Facility: [facility] Address: [address] [place] [address] Performed By: #### 2 777-1, 76663-0, #### [facility] CLIA [id number] [address] [place] [address] [place] MCHC (RBC) [Mass/Vol] 31.3 g/dL Normal 30.5-36.0 [facility] Comment on above: Order Comment: Speci men Type: BLOOD SPECIMEN Ordering Facility: [facility] Address: [address] [place] [address] Performed By: #### 2 777-1, 90454-5, #### [facility] CLIA [id number] [address] [place] [address] [place] MCV (RBC) [Entitic vol] 84.5 fL Normal 80.0-100.0 [facility] Comment on above: Order Comment: Speci men Type: BLOOD SPECIMEN Ordering Facility: [facility] Address: [address] [place] [address] Performed By: #### 2 777-1, 36995-6, #### [facility] CLIA [id number] [address] [place] [address] [place] Monocytes (Bld) [#/Vol] 1.48 10*3/uL High <0.87 [facility] Comment on above: Order Comment: Speci men Type: BLOOD SPECIMEN Ordering Facility: [facility] Address: [address] [place] [address] Performed By: #### 2 777-1, 55759-3, #### [facility] CLIA [id number] [address] [place] [address] [place] Monocytes/100 WBC (Bld) 10.2 % Normal [facility] Comment on above: Order Comment: Speci men Type: BLOOD SPECIMEN Ordering Facility: [facility] Address: [address] [place] [address] Performed By: #### 2 777-1, 00676-4, #### [facility] CLIA [id number] [address] [place] [address] [place] Neutrophils (Bld) [#/Vol] 11.69 10*3/uL High 1.45-7.50 [facility] Comment on above: Order Comment: Speci men Type: BLOOD SPECIMEN Ordering Facility: [facility] Address: [address] [place] [address] Performed By: #### 2 777-1, 87825-1, #### [facility] CLIA [id number] [address] [place] [address] [place] Neutrophils/100 WBC (Bld) 80.9 % Normal [facility] Comment on above: Order Comment: Speci men Type: BLOOD SPECIMEN Ordering Facility: [facility] Address: [address] [place] [address] Performed By: #### 2 777-1, 58659-2, #### [facility] CLIA [id number] [address] [place] [address] [place] Nucleated RBC (Bld) [#/Vol] 10*3/uL Normal <0.01 [facility] Comment on above: Order Comment: Speci men Type: BLOOD SPECIMEN Ordering Facility: [facility] Address: [address] [place] [address] Performed By: #### 2 777-1, 30392-3, #### [facility] CLIA [id number] [address] [place] [address] [place] Nucleated RBC/100 WBC (Bld) [Ratio] 0.0 /100 WBC Normal [facility] Comment on above: Order Comment: Speci men Type: BLOOD SPECIMEN Ordering Facility: [facility] Address: [address] [place] [address] Performed By: #### 2 777-1, 76742-4, #### [facility] CLIA [id number] [address] [place] [address] [place] Platelet mean volume (Bld) [Entitic vol] 9.3 fL Normal 9.0-12.7 [facility] Comment on above: Order Comment: Speci men Type: BLOOD SPECIMEN Ordering Facility: [facility] Address: [address] [place] [address] Performed By: #### 2 777-1, 61129-4, #### [facility] CLIA [id number] [address] [place] [address] [place] Platelets (Bld) [#/Vol] 180 10*3/uL Normal 150-400 [facility] Comment on above: Order Comment: Speci men Type: BLOOD SPECIMEN Ordering Facility: [facility] Address: [address] [place] [address] Performed By: #### 2 777-1, 44260-5, #### [facility] CLIA [id number] [address] [place] [address] [place] RBC (Bld) [#/Vol] 4.53 10*6/uL Normal 4.20-6.00 [facility] Comment on above: Order Comment: Speci men Type: BLOOD SPECIMEN Ordering Facility: [facility] Address: [address] [place] [address] Performed By: #### 2 777-1, 39536-8, #### [facility] CLIA [id number] [address] [place] [address] [place] WBC (Bld) [#/Vol] 14.46 10*3/uL High 3.70-11.00 [facility] Comment on above: Order Comment: Speci men Type: BLOOD SPECIMEN Ordering Facility: [facility] Address: [address] [place] [address] Performed By: #### 2 777-1, 00305-3, #### [facility] CLIA [id number] [address] [place] [address] [place] HISTORY PHYSICALon HISTORY PHYSICAL HNO ID: [id number] Author: SAMUEL ROBIN MD Service: General Surgery [...] No a (more content not included)... Normal [facility] Magnesium [Mass/Vol] 1.8 mg/dL Normal 1.7-2.3 [facility] Comment on above: Order Comment: Sana zuñiga Type: BLOOD SPECIMEN Ordering Facility: [facility] Address: [address] [place] [address] Performed By: #### 2 777-1, 44015-3, #### [facility] CLIA [id number] [address] [place] [address] [place] PT panel Coag (PPP)on 2023 INR Coag (PPP) [Relative time] 1.2 {INR} Normal 0.9-1.3 [facility] Comment on above: Order Comment: Sana zuñiga Type: BLOOD SPECIMEN Ordering Facility: [facility] Address: [address] [place] [address] Result Comment: Winnie min K Antagonist (VKA) Therapeutic Range: INR 2 to 3 (Target INR of 2.5) Note: For patients treated with VKA drugs, such as warfarin, the [place] [employer] 2012 Guideline recommends [...] Chest 2012, 141:7S-47S Jonny RA, et al. [facility] 2017, 70: 252-289 Performed By: #### 2 777-1, 53491-5, #### [facility] CLIA [id number] [address] [place] [address] [place] PT Coag (PPP) [Time] 12.3 s Normal 9.7-13.0 [facility] Comment on above: Order Comment: Speci men Type: BLOOD SPECIMEN Ordering Facility: [facility] Address: [address] [place] [address] Performed By: #### 2 777-1, 34662-3, #### [facility] CLIA [id number] [address] [place] [address] [place] Phosphate SerPl-mCncon 10-27 Phosphate [Mass/Vol] 3.2 mg/dL Normal 2.7-4.8 [facility] Comment on above: Order Comment: Speci men Type: BLOOD SPECIMEN Ordering Facility: [facility] Address: [address] [place] [address] Performed By: #### 2 777-1, 82131-8, #### [facility] CLIA [id number] [address] [place] [address] [place] SEPSIS LACTATEon 10-28-2023 Lactate [Moles/Vol] 2.0 mmol/L Normal <=2.0 [facility] Comment on above: Order Comment: Speci men Type: BLOOD SPECIMENOrdering Facility: [facility] Address: [address] [place] [address] Performed By: #### S LACT ####[facility] [id number] [place] [address] [place] TYPE + SCREENon 10-28-2023 ABO A Normal [facility] Comment on above: Order Comment: Speci men Type: BLOOD SPECIMEN Ordering Facility: [facility] Address: [address] [place] [address] Performed By: #### 2 4321-2, 73605-5, 2777-1 #### [facility] CLIA [id number] [address] [place] [address] [place] HISTORICAL AB SCR STATUS Negative Normal [facility] Comment on above: Order Comment: Speci men Type: BLOOD SPECIMEN Ordering Facility: [facility] Address: [address] [place] [address] Performed By: #### 2 4321-2, 43378-6, 2777-1 #### [facility] CLIA [id number] [address] [place], [place] [address] [place] Rh Nom (Bld) Positive Normal [facility] Comment on above: Order Comment: Speci men Type: BLOOD SPECIMEN Ordering Facility: [facility] Address: [address] [place] [address] Performed By: #### 2 4321-2, 69658-7, 2777-1 #### [facility] CLIA [id number] [address] [place] [address] [place] TYPE AND SCREEN EXPIRATION 10/31/2023 23:59 Normal [facility] Comment on above: Order Comment: Speci men Type: BLOOD SPECIMEN Ordering Facility: [facility] Address: [address] [place] [address] Performed By: #### 2 4321-2, 24505-1, 2777-1 #### [facility] CLIA [id number] [address] [place] [address] [place] XR ABDOMEN 1V [...] right lower quadrant on the outside CT). Draftsperson: SUSI Transcribe Date/Time: Oct 28 2023 5:30P Dictated by : WALTER BURGER MD This examination was interpreted and the report reviewed and electronically signed by: WALTER BURGER MD on Oct 28 2023 5:47PM EST [id number] Normal [facility] Basic metabolic 2000 panelOr dered By: Vandana [...] Inclusion of Race in Diagnosing Kidney Disease. [employer] 202;79(2):268-88.e1. 2. N Engl J Med 1 Vol. 385 Issue 19 Pages 2659-7067 Glucose [Mass/Vol] 84 mg/dL 74 - 109 [...] vol] 9.1 fL 7.5 - 11.2 fL [facility] Platelets (Bld) [#/Vol] [facility] Comment on above: Platelet cannot be q uantified due to the presence of platelet clumps. Platelet estimate appears normal. RBC (Bld) [#/Vol] 4.59 10*6/uL [facility] WBC (Bld) [#/Vol] 8.6 10*3/uL 4.5 - 11.5 K/uL [facility] CT Head WO contrastOrdered B y: David Kay on 07-16-2023 CT DLP 1126.71 (mGy.cm) [facility] Work Phone: CT Series HEAD W/O,HEAD W/O [facility] Work Phone: CTDI VOL 0.34 (mGy),47.31 (mGy) [facility] Work Phone: PHANTOM TYPE IEC Head Dosimetry Phantom,IEC Head Dosimetry Phantom [facility] Work Phone: [facility] Work Phone: CT Head WO contraston [...] left caudate nucleus. MACRO: None RADIOLOGY KayDavid edwardsDO - 07/16/2023 EXAMINATION: CT HEAD W/O CONTRAST [...] in the left caudate nucleus. MACRO: None [facility] Radiology Study observation (narrative) [facility] MAGNESIUMon 07-16-2023 Interpretation and review of laboratory results Normal [facility] Magnesium [Mass/Vol] 2.1 mg/dL 1.6 - 2 .8 mg/dL [facility] Lithiumon 07-06-2023 [place] [Moles/Vol] 0.9 mmol/L Invalid Interpretation Code 0.5-1.2 [facility] Comment on above: Result Comment: A co ncentration of 0.5-0.8 mmol/L is advised for long-term use; concentrations of up to 1.2 mmol/L may be necessary during acute treatment. Detection Limit = 0.1 <0.1 indicates None Detected Performed at: [facility] [id number] PhD Agata Narayan Performed By: #### 2 535452, 5302571, 0601918, 8772945, 863073890, 0924140, 1123063, 82700992, 6700033 ####[facility] [address] [place] [address] CBC w/Indiceson 07-04-2023 Erythrocyte distribution width (RBC) [Ratio] 13.8 % Normal 10.9-14.2 [facility] Comment on above: Performed By: #### 2 609135, 9883094, 2058544, 6047574, 213139618, 6890101, 7371201, 04632145, 9929840 #### [facility] [address] [place] [address] Hematocrit (Bld) [Volume fraction] 38.1 % Normal 37.7-49.0 [facility] Comment on above: Performed By: #### 2 052536, 6018294, 1295065, 9347607, 487473688, 7961188, 2427539, 65744385, 1483443 #### [facility] [address] [place] [address] Hemoglobin (Bld) [Mass/Vol] 12.7 g/dL Low 13.5-17.5 [facility] Comment on above: Performed By: #### 2 720045, 2934940, 7897529, 0089827, 824279631, 1412215, 1739198, 21020189, 3243551 #### [facility] [address] [place] [address] MCH (RBC) [Entitic mass] 27.6 pg Normal 27.0-34.0 [facility] Comment on above: Performed By: #### 2 747616, 8994329, 0597534, 7794938, 837956453, 2113736, 4062566, 89808350, 4244400 #### [facility] [address] [place] [address] MCHC (RBC) [Mass/Vol] 33.3 g/dL Normal 31.4-36.0 [facility] Comment on above: Performed By: #### 2 510550, 1088948, 5154945, 8589862, 281317845, 0149992, 4065845, 18745290, 4206920 #### [facility] [address] [place] [address] MCV (RBC) [Entitic vol] 83.0 fL Normal 80.0-100.0 [facility] Comment on above: Performed By: #### 2 464854, 0104029, 4337278, 7039888, 162396275, 2184646, 0216179, 47460229, 6990148 #### [facility] [address] [place] [address] Platelet mean volume (Bld) [Entitic vol] 8.5 fL Normal 6.4-10.8 [facility] Comment on above: Performed By: #### 2 289739, 2887678, 8058008, 5171573, 461126763, 6307626, 8177322, 79365926, 1806042 #### [facility] [address] [place] [address] Platelets (Bld) [#/Vol] 175.0 E9/L Normal 150.0-500.0 [facility] Comment on above: Performed By: #### 2 116794, 9432839, 1883505, 1789685, 301061536, 7530856, 2122846, 90166965, 8765567 #### [facility] [address] [place] [address] RBC (Bld) [#/Vol] 4.6 E12/L Normal 4.3-5.9 [facility] Comment on above: Performed By: #### 2 201808, 7209258, 3040951, 2185469, 306956042, 8179655, 4890673, 55802082, 8176153 #### [facility] [address] [place] [address] WBC corrected for nucl RBC Auto (Bld) [#/Vol] 5.9 E9/L Normal 4.0-11.0 [facility] Comment on above: Performed By: #### 2 478585, 0804936, 0384683, 4516065, 755720261, 6753981, 3243359, 06324296, 3046425 #### [facility] [address] [place] [address] CHEMISTRYOrdered By: SYSTEM SYSTEM on 07-04-2023 25-hydroxyvitamin D3 [Mass/Vol] 33.7 ng/mL Normal 30.0 - 100.0 ng/mL [facility] Comment on above: Interpretive Data: Vitamin D deficiency has been defined as a level of serum 25-OH vitamin D less than 20 ng/mL (1,2) by the [place] of [employer] and an Endocrine Society practice guideline. The Endocrine Society further defined vitamin D insufficiency as a level between 21 and 29 ng/mL (2). 1. IOM ([place] of [employer]). 2010. Dietary reference intakes for [...] 118 mL/min/1.73 m2 Normal >=59mL/min/1 .73 m2 [facility] S Comment on above: Interpretive Data: [...] 2.75 m[IU]/L Normal 0.34 - 5.60 mcIU/mL [facility] Remisol Urea nitrogen [Mass/Vol] 20 mg/dL Normal 5 - 21 mg/dL [facility] Remisol Urea nitrogen/Creatinine [Mass ratio] 22 mg/mg High 10 - 20 [facility] Remisol Valproate [Moles/Vol] 79 microgram/mL Normal 50 - 99 mcg/mL [facility] Remisol CMPon 07-04-2023 Albumin [Mass/Vol] 3.7 g/dL Normal 3.3-5.0 [facility] Comment on above: Performed By: #### 2 198668, 6465165, 1849372, 0809709, 976729310, 5530549, 4346792, 78953495, 0642480 #### [facility] [address] [place] [address] Albumin/Globulin (S) [Mass conc ratio] 1.0 Low 1.1-2.2 [facility] Comment on above: Performed By: #### 2 585137, 9412138, 3662592, 3030657, 031758216, 3485753, 8598157, 64181568, 0950895 #### [facility] [address] [place] [address] ALP [Catalytic activity/Vol] 37 Int._Unit/L Normal 21-98 [facility] Comment on above: Performed By: #### 2 778402, 0159089, 1219791, 4542031, 934091509, 9829803, 0843053, 54122840, 5481957 #### [facility] [address] [place] [address] ALT No additional P-5'-P [Catalytic activity/Vol] 15 Int._Unit/L Normal 6-46 [facility] Comment on above: Performed By: #### 2 028642, 5945055, 6519783, 4838691, 251314695, 3641618, 5854685, 26747688, 1168111 #### [facility] [address] [place] [address] Anion gap [Moles/Vol] 12 mmol/L Normal 6-16 [facility] Comment on above: Performed By: #### 2 604883, 5773603, 3507873, 3148343, 277183645, 9382036, 6053203, 22483645, 9118027 #### [facility] [address] [place] [address] AST [Catalytic activity/Vol] 22 Int._Unit/L Normal 5-43 [facility] Comment on above: Performed By: #### 2 832706, 1240617, 0166142, 1499153, 775734958, 9717587, 6349285, 63787895, 5472264 #### [facility] [address] [place] [address] Bilirubin [Mass/Vol] 0.1 mg/dL Normal 0.0-1.1 [facility] Comment on above: Performed By: #### 2 764661, 5315112, 3353687, 1985709, 433475808, 8397875, 3265902, 99173755, 8297750 #### [facility] [address] [place] [address] Calcium [Mass/Vol] 9.7 mg/dL Normal 8.9-11.1 [facility] Comment on above: Performed By: #### 2 438455, 4868066, 5216982, 7462116, 752585227, 7292690, 2240959, 63413519, 8822330 #### [facility] [address] [place] [address] Chloride [Moles/Vol] 108 mmol/L Normal 101-111 [facility] Comment on above: Performed By: #### 2 447534, 4096581, 0209804, 5814452, 073712646, 4149137, 0280945, 42262131, 3128287 #### [facility] [address] [place] [address] CO2 [Moles/Vol] 23 mmol/L Normal 21-31 [facility] Comment on above: Performed By: #### 2 658060, 9606162, 5221430, 9088463, 777366412, 8846627, 4188962, 51469010, 7470641 #### [facility] [address] [place] [address] Creatinine [Mass/Vol] 0.9 mg/dL Normal 0.5-1.3 [facility] Comment on above: Performed By: #### 2 664631, 0266793, 8978634, 0371368, 343642578, 1846182, 1982348, 50529146, 8001980 #### [facility] [address] [place] [address] Globulin (S) [Mass/Vol] 3.8 g/dL Normal 1.4-4.0 [facility] Comment on above: Performed By: #### 2 451994, 4465814, 8588736, 7440548, 627036739, 2010196, 1194174, 16061232, 7689580 #### [facility] [address] [place] [address] Glucose [Mass/Vol] 86 mg/dL Normal 55-199 [facility] Comment on above: Result Comment: If t his glucose result represents a fasting glucose, interpretation should refer to the following reference range: 55-99 mg/dL Performed By: #### 2 056968, 5595538, 0090574, 7123206, 688418088, 0978399, 5925042, 33637159, 3493788 #### [facility] [address] [place] [address] Potassium [Moles/Vol] 4.3 mmol/L Normal 3.5-5.3 [facility] Comment on above: Performed By: #### 2 264677, 4033666, 8931707, 1580266, 892022122, 3143024, 4306514, 76317069, 4219728 #### [facility] [address] [place] [address] Protein [Mass/Vol] 7.5 g/dL Normal 6.0-7.8 [facility] Comment on above: Performed By: #### 2 626091, 3117826, 3492401, 4152348, 646804165, 9776488, 4468626, 66540928, 4255163 #### [facility] [address] [place] [address] Sodium [Moles/Vol] 139 mmol/L Normal 135-145 [facility] Comment on above: Performed By: #### 2 332117, 5915500, 7367888, 1293605, 976220166, 0471707, 0682787, 27930217, 6561133 #### [facility] [address] [place] [address] Urea nitrogen [Mass/Vol] 20 mg/dL Normal 5-21 [facility] Comment on above: Performed By: #### 2 671139, 1875741, 3218992, 4631368, 488625886, 0956020, 7637638, 72370912, 2840879 #### [facility] [address] [place] [address] Urea nitrogen/Creatinine [Mass ratio] 22 No Units High 10-20 [facility] Comment on above: Performed By: #### 2 809227, 0527227, 3892448, 8995134, 130644098, 8780344, 4879778, 15295442, 4933894 #### [facility] [address] [place] [address] Free T4on 07-04-2023 Free T4 [Mass/Vol] 0.70 ng/dL Normal 0.58-1.64 [facility] Comment on above: Performed By: #### 2 697204, 3189834, 3842246, 0944050, 747194691, 9975886, 8438173, 96625081, 6216415 #### [facility] [address] [place] [address] HEMATOLOGYOrdered By: Jersey Arnett on 07-04-2023 Erythrocyte [...] 8.5 fL Normal 6.4 - 10.8 fL [facility] HemeAutoSS Platelets (Bld) [#/Vol] 175.0 E9/L Normal 150.0 - 500.0 E9/L [facility] HemeAutoSS RBC (Bld) [#/Vol] 4.6 E12/L Normal 4.3 - 5.9 E12/L [facility] HemeAutoSS WBC corrected for nucl RBC Auto (Bld) [#/Vol] 5.9 E9/L Normal 4.0 - 11.0 E9/L [facility] HemeAutoSS Lipid Panelon 07-04-2023 Cholesterol [Mass/Vol] 145 mg/dL Normal 120-200 [facility] Comment on above: Performed By: #### 2 185872, 3518916, 9389211, 6744925, 889379281, 1924946, 7139908, 17659732, 4730177 #### [facility] [address] [place] [address] Cholesterol in HDL [Mass/Vol] 40 mg/dL Invalid Interpretation Code [facility] Comment on above: Result Comment: HDL > or equal to 60 mg/dL: Low cardiovascular risk HDL < 40 mg/dL : High cardiovascular risk Performed By: #### 2 330872, 8834646, 6440371, 0586494, 781663134, 8763228, 9475037, 48854915, 7732656 #### [facility] [address] [place] [address] Cholesterol in LDL [Mass/Vol] 86 mg/dL Normal <=129 [facility] Comment on above: Performed By: #### 2 514333, 7151158, 3495125, 1286119, 834670059, 1122844, 3898994, 67352962, 0298823 #### [facility] [address] [place] [address] Cholesterol in VLDL [Mass/Vol] 27 mg/dL Normal 7-40 [facility] Comment on above: Performed By: #### 2 713194, 4916198, 5133576, 5338227, 719041114, 9307368, 3256828, 07103443, 5467767 #### [facility] [address] [place] [address] Triglyceride [Mass/Vol] 133 mg/dL Normal <=149 [facility] Comment on above: Performed By: #### 2 607889, 5457236, 8607628, 5327556, 814119556, 7011124, 4382352, 73574630, 2485482 #### [facility] [address] [place] [address] Physician Orderon 07-04-2023 Physician Order [id number]# 1.00TIFF Normal [facility] TSHon 07-04-2023 TSH Qn 2.75 m[IU]/L Normal 0.34-5.60 [facility] Comment on above: Performed By: #### 2 317980, 3295551, 7740344, 7689717, 055774107, 2387116, 2390107, 41729376, 9642988 #### [facility] [address] [place] [address] Valproic Acidon 07-04-2023 Valproate [Moles/Vol] 79 microgram/mL Normal 50-99 [facility] Comment on above: Performed By: #### 2 938321, 9873809, 4806720, 2113567, 640962994, 4759024, 3206368, 48186077, 6176439 #### [facility] [address] [place] [address] Vitamin D 25 Hydroxyon 07-04 25-hydroxyvitamin D3 [Mass/Vol] 33.7 ng/mL Normal 30.0-100.0 [facility] Comment on above: Result Comment: Vit alfredo D deficiency has been defined as a level of serum 25-OH vitamin D less than 20 ng/mL (1,2) by the [place] of [employer] and an Endocrine Society practice guideline. The Endocrine Society further defined vitamin D insufficiency as a level between 21 and 29 ng/mL (2). 1. IOM ([place] of [employer]). 2010. Dietary reference intakes for calcium and D. [place]: The National Academies Press. 2. Denia MF, Marcelino CHAIDEZ, Ann GARVEY, et al. Evaluation, treatment, and prevention of vitamin D deficiency: an Endocrine Society clinical practice guideline. JCEM. 2010; 96 (7):1911-30. Performed By: #### 2 903655, 2255851, 8431239, 1250756, 339640124, 6078262, 0596808, 67060376, 0902024 #### [facility] [address] [place] [address] eGFRon 07-04-2023 GFR/1.73 sq M.predicted among non-blacks MDRD (S/P/Bld) [Vol rate/Area] 118 mL/min/1.73 m2 Normal >=59 [facility] Comment on above: Order Comment: Order added by Discern Expert. Result Comment: [employer] Supervisor jenni kidney disease could be indicated at eGFR's of less than 60 mL/min/1.73m2. Kidney failure is indicated at less than 15 mL/min/1.73m2. Performed By: #### 2 056297, 8838381, 1237389, 6854352, 931835063, 3043249, 8932288, 30384517, 8128379 #### [facility] [address] [place] [address] XR Chest PA and Lateralon EXAMINATION: XR [...] indicated with dedicated abdominal radiograph/CT. MACRO: None [facility] Radiology Study observation (narrative) [facility] XR Chest PA and LateralOrder ed By: Krystal Epstein on 06-22-2023 [facility] Work Phone: DEPAKENE/ VALPROIC ACIDon DEPAKENE 59.3 ug/ml Normal 50.0-100.0 [facility] Comment on above: Performed By: #### V ALP #### [facility] [address] [place] [address] Dr. Nikky King DEPAKENE/ VALPROIC ACIDon DEPAKENE 43.6 ug/ml Critically low 50.0-100.0 [facility] Comment on above: Performed By: #### V ALP #### [facility] [address] [place] [address] Dr. Nikky King LITHIUMon 12-06-2022 [place] (Eskalith(R)), Serum 0.8 mmol/L Normal 0.5-1.2 [facility] Comment on above: Result Comment: A co ncentration of 0.5-0.8 mmol/L is advised for long-term use; concentrations of up to 1.2 mmol/L may be necessary during acute treatment. Detection Limit = 0.1 <0.1 indicates None Detected Performed By: #### L ITHIUM #### [facility] [address] [place] [address] Dr. Nikky King DEPAKENE/ VALPROIC ACIDon DEPAKENE 61.7 ug/ml Normal 50.0-100.0 [facility] Comment on above: Performed By: #### V ALP #### [facility] [address] [place] [address] Dr. Nikky King LITHIUMon 11-23-2022 [place] (Eskalith(R)), Serum 0.9 mmol/L Normal 0.5-1.2 [facility] Comment on above: Result Comment: A co ncentration of 0.5-0.8 mmol/L is advised for long-term use; concentrations of up to 1.2 mmol/L may be necessary during acute treatment. Detection Limit = 0.1 <0.1 indicates None Detected Performed By: #### L ITHIUM #### [facility] [address] [place] [address] Dr. Nikky King CALCIUMon 08-22-2022 Calcium [Mass/Vol] 9.6 mg/dL Normal 8.5-10.1 [facility] Comment on above: Performed By: #### C A, CREA #### [facility] [address] [place] [address] Dr. Nikky King CREATININEon 08-22-2022 Creatinine [Mass/Vol] 0.84 mg/dL Normal 0.70-1.30 [facility] Comment on above: Performed By: #### C A, CREA #### [facility] [address] [place] [address] Dr. Nikky King EGFR-AF BENINESE >60 Normal >=60 [facility] Comment on above: Performed By: #### C A, CREA #### [facility] [address] [place] [address] Dr. Nikky King EGFR-NON AF BENINESE >60 Normal >=60 [facility] Comment on above: Performed By: #### C A, CREA #### [facility] [address] [place] [address] Dr. Nikky King LITHIUMon 07-05-2022 [place] (Eskalith(R)), Serum 0.9 mmol/L Normal 0.5-1.2 [facility] Comment on above: Result Comment: A co ncentration of 0.5-0.8 mmol/L is advised for long-term use; concentrations of up to 1.2 mmol/L may be necessary during acute treatment. Detection Limit = 0.1 <0.1 indicates None Detected Performed By: #### L ITHIUM #### [facility] [address] [place] [address] Dr. Nikky King Vital Signs Date Time Vital Sign Value Performing Clinician Severinoi lity 12-02-2024 12:32-0400 Body height 167.6 cm Palamida Work Phone: [facility] [employer] 12-02-2024 12:32-040 Body mass index (BMI) [Ratio] 31.96 kg/m2 Palamida Work Phone: [facility] [employer] 12-02-2024 12:32040 Body weight 89.81 kg Palamida Work Phone: [facility] 12-02-2024 12:32-0400 Diastolic blood pressure 82 mm[Hg] Cris Lowe PA Work Phone: [facility] 12-02-2024 12:32-0400 Systolic blood pressure 128 mm[Hg] Cris Lowe PA Work Phone: [facility] 05-21-2024 09:29-0400 Body height 167.6 cm Cris Lowe PA Work Phone: [facility] 05-21-2024 09:29-0400 Body mass index (BMI) [Ratio] 31.96 kg/m2 Cris Lowe PA Work Phone: [facility] 05-21-2024 09:29-0400 Body weight 89.81 kg Cris Lowe PA Work Phone: [facility] 05-21-2024 09:29-0400 Diastolic blood pressure 90 mm[Hg] Cris Lowe PA Work Phone: [facility] 05-21-2024 09:29-0400 Systolic blood pressure 136 mm[Hg] Cris Lowe PA Work Phone: [facility] 12-28-2023 14:30-0400 Diastolic blood pressure 89 mm[Hg] Mari Traore DMD Work Phone: [facility] 12-28-2023 14:30-0400 Heart rate 69 /min Mariayanna Traore DMD Work Phone: [facility] 12-28-2023 14:30-0400 Respiratory rate 10 /min Mari Traore DMD Work Phone: [facility] 12-28-2023 14:30-0400 SaO2% (BldA) [Mass fraction] 100 % Amriayanna Vaner DMD Work Phone: [facility] 12-28-2023 14:30-0400 Systolic blood pressure 135 mm[Hg] Mari Traore DMD Work Phone: [facility] 12-28-2023 13:52-0400 Body temperature 97.3 [degF] Mari Vaner DMD Work Phone: [employer] 12-28-2023 09:15-0400 Body height 167.6 cm Mari Traore DMD Work Phone: [employer] 12-28-2023 09:15-0400 Body mass index (BMI) [Ratio] 31.8 kg/m2 Mari Traore DMD Work Phone: [employer] 12-28-2023 09:15-0400 Body weight 89.36 kg Mari Traore DMD Work Phone: [employer] 12-19-2023 11:23-0400 Diastolic blood pressure 90 mm[Hg] Ling Khaiiv MILL FEEDER-MATHEMATICS TECHNICIAN Work Phone: [employer] 12-19-2023 11:23-0400 Systolic blood pressure 132 mm[Hg] Ling Khaiiv MILL FEEDER-MATHEMATICS TECHNICIAN Work Phone: [employer] 12-19-2023 11:03-0400 Body height 167.6 cm Ling Khaiiv MILL FEEDER-MATHEMATICS TECHNICIAN Work Phone: [employer] 12-19-2023 11:03-0400 Body mass index (BMI) [Ratio] 31.8 kg/m2 Ling Markiv MILL FEEDER-MATHEMATICS TECHNICIAN Work Phone: [employer] 12-19-2023 11:03-0400 Body temperature 97.81 [degF] Ling Markiv MILL FEEDER-MATHEMATICS TECHNICIAN Work Phone: [employer] 12-19-2023 11:03-0400 Body weight 89.36 kg Ling Markiv MILL FEEDER-MATHEMATICS TECHNICIAN Work Phone: [employer] 12-19-2023 11:03-0400 Heart rate 59 /min Ling Markiv MILL FEEDER-MATHEMATICS TECHNICIAN Work Phone: [employer] 12-19-2023 11:03-0400 Respiratory rate 18 /min Ling Khaiiv MILL FEEDER-MATHEMATICS TECHNICIAN Work Phone: [employer] 12-19-2023 11:03-0400 SaO2% (BldA) [Mass fraction] 97 % Ling Ridleyclaudia MILL FEEDER-MATHEMATICS TECHNICIAN Work Phone: [facility] 12-03-2023 13:07-0400 Body height 167.6 cm Oscar Ruiz MD Work Phone: [facility] 12-03-2023 13:07-0400 Body weight 92.53 kg Oscar Ruiz MD Work Phone: [facility] 12-03-2023 13:07-0400 Diastolic blood pressure 76 mm[Hg] Oscar Ruiz MD Work Phone: [facility] 12-03-2023 13:07-0400 Heart rate 71 /min Oscar Ruiz MD Work Phone: [facility] 12-03-2023 13:07-0400 Systolic blood pressure 111 mm[Hg] Oscar Ruiz MD Work Phone: [facility] 11-28-2023 09:48-0400 Body height 167.6 cm Victoria Daniel MILL FEEDER.MATHEMATICS TECHNICIAN Work Phone: [facility] 11-28-2023 09:48-0400 Body temperature 97.5 [degF] Victoria Daniel MILL FEEDER.MATHEMATICS TECHNICIAN Work Phone: [facility] 11-28-2023 09:48-0400 Body weight 87.54 kg Victoria Daniel MILL FEEDER.MATHEMATICS TECHNICIAN Work Phone: [facility] 11-28-2023 09:48-0400 Diastolic blood pressure 66 mm[Hg] Victoria Daniel MILL FEEDER.MATHEMATICS TECHNICIAN Work Phone: [facility] 11-28-2023 09:48-0400 Heart rate 83 /min Victoria Daniel MILL FEEDER.MATHEMATICS TECHNICIAN Work Phone: [facility] 11-28-2023 09:48-0400 Systolic blood pressure 134 mm[Hg] Victoria Daniel MILL FEEDER.MATHEMATICS TECHNICIAN Work Phone: [facility] 07-16-2023 08:06-0500 Body mass index (BMI) [Ratio] 33.97 kg/m2 Kim Beltre MD Work Phone: [facility] 07-16-2023 08:06-0500 Body temperature 97.5 [degF] Kim Beltre MD Work Phone: [facility] 07-16-2023 08:06-0500 Body weight 90.27 kg Kim Beltre MD Work Phone: [facility] 07-16-2023 08:06-0500 Diastolic blood pressure 80 mm[Hg] Kim Beltre MD Work Phone: [facility] 07-16-2023 08:06-0500 Heart rate 37 /min Kim Beltre MD Work Phone: [facility] 07-16-2023 08:06-0500 Respiratory rate 15 /min Kim Beltre MD Work Phone: [facility] 07-16-2023 08:06-0500 SaO2% (BldA) [Mass fraction] 100 % Kim Beltre MD Work Phone: [facility] 07-16-2023 08:06-0500 Systolic blood pressure 110 mm[Hg] Kim Beltre MD Work Phone: [facility] En[facility] Encounter Date Encounter Type Care Provider Facility Start: 02-24-2025 End: 02-24-2025 Patient encounter procedure Kendra Jaramillo DDS Work Phone: [employer] Comment on above: Encounter for dental examination (Primary Dx) Start: 02-24-2025 End: 02-24-2025 Patient encounter status Kendra Clint MATA Work Phone: [facility] Work Phone: Start: 12-16-2024 End: 12-16-2024 Telephone encounter To Be Assigned [facility] Comment on above: Medical Record Revlary w Start: 12-02-2024 End: 12-02-2024 Gaboboo flowsarnaldo BANG Work Phone: [facility] Start: 12-02-2024 End: 12-02-2024 Bamboo flowsheet Cris Lowe PA Work Phone: [facility] Start: 12-02-2024 End: 12-02-2024 Office outpatient visit 15 minutes Cris Lowe PA Work Phone: [facility] Comment on above: Alteration of awaren ess (Primary Dx) Start: 12-02-2024 End: 12-02-2024 ambulatory CRIS LOWE Not Available Start: 08-23-2024 End: 08-23-2024 Letter encounter Gallagherroger Corcoran DDS Work Phone: [facility] Start: 05-21-2024 End: 05-21-2024 Bamboo flowsheet Cris Lowe PA Work Phone: [facility] Start: 05-21-2024 End: 05-21-2024 Bamboo flowsheet Cris Lowe PA Work Phone: [facility] Start: 05-21-2024 End: 05-21-2024 Office outpatient visit 15 minutes Cris Lowe PA Work Phone: [facility] [address] [facility] Comment on above: Alteration of awaren ess (Primary Dx) Start: 05-21-2024 End: 05-21-2024 ambulatory CRIS LOWE Not Available Start: 05-18-2024 End: 05-18-2024 Letter encounter Aileen Corcoran DDS [facility]: [facility] Start: 02-13-2024 End: 02-13-2024 Lab Drop off HERMAN ROMERORING [facility] Start: 02-13-2024 End: 02-13-2024 ambulatory HERMAN CRANE Facility[facility] Start: 01-29-2024 End: 01-29-2024 ambulatory CRIS LOWE Not Available Start: 01-11-2024 Telephone encounter Cris Dinh RN Colorectal Surgery Comment on above: Loop Machine Operator - O ther Start: 12-28-2023 End: 12-31-2023 Patient encounter procedure Mari Kassidy DMD Work Phone: [facility] Start: 12-28-2023 End: 12-28-2023 Subsequent hospital visit by physician Mari Traore DMD Work Phone: [facility] Ambulatory Surgery Start: 12-28-2023 End: 12-31-2023 ambulatory RYAN ZURITA Facility:[facility] Start: 12-25-2023 Telephone encounter Shayy Chandler RN [facility] Pre-Admission Testing Comment on above: Pre-surgical Evaluat ion (DD adult dental restorations 12/27 under [place] at [place]. PAT completed - consent request sent to main - see future encounter for results. CHRISTINA RN spoke to [facility], confirmed O, [place] address, and 0900 arrival time/) Pre-surgical Evaluat ion (Anesthesia Attestaion for dental surgery scanned in social media campaign manager) Start: 12-20-2023 End: 12-20-2023 Orders Only Victoria Sanchez APRN.MATHEMATICS TECHNICIAN Work Phone: General Surgery Comment on above: Sigmoid volvulus (HC C) (Primary Dx) Start: 12-19-2023 End: 12-19-2023 Patient encounter procedure Ling Coffman MILL FEEDER-MATHEMATICS TECHNICIAN Work Phone: [facility] Pre-Admission Testing Comment on above: Pre-op testing (Prim marylin Dx); Body mass index (BMI) 31.0-31.9, adult Start: 12-19-2023 End: 12-19-2023 Patient encounter status Ling Coffman MILL FEEDER-MATHEMATICS TECHNICIAN Work Phone: [facility] Work Phone: Start: 12-19-2023 ambulatory RYAN ZURITA Facilit y:[facility] Start: 12-19-2023 Encounter for other preprocedural examination LING COFFMAN [facility] Start: 12-11-2023 End: 12-11-2023 ambulatory EPIFANIO HUNTLEY Not Available Start: 12-03-2023 End: 12-04-2023 ambulatory Rafael Giraldo MD Work Phone: Urology Start: 12-03-2023 End: 12-03-2023 Office outpatient visit 5 minutes Oscar Ruiz MD Work Phone: Urology Comment on above: Phimosis (Primary Dx ) Start: 11-28-2023 End: 11-29-2023 ambulatory VICTORIA SANCHEZ Facility:[facility] Start: 11-28-2023 End: 11-28-2023 Patient encounter procedure Victoria Sanchez MILL FEEDER.MATHEMATICS TECHNICIAN Work Phone: General Surgery Comment on above: Postoperative visit (Primary Dx) Start: 11-12-2023 Telephone encounter Cris Dinh RN Colorectal Surgery Comment on above: 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 Machine Operator - O ther Start: 11-07-2023 End: 11-07-2023 ambulatory PHOENIX CARDENAS Facility:[facility] Start: 10-28-2023 Evaluation and management of inpatient PHOENIX CARDENAS Facility:[facility] Start: 10-10-2023 Ad[facility] to [facility] Coleen Dodson DDS Other Phone: [facility] Start: 07-16-2023 End: 07-16-2023 Emergency department patient visit Kim Beltre MD Work Phone: [facility] Emergency Department Comment on above: bradycardia (Low HR (33)) Start: 07-16-2023 End: 07-16-2023 Subsequent hospital visit by physician Harpreet Mccurdy DDS Work Phone: [facility] Radiology CT Scan Comment on above: Arrived Start: 07-04-2023 End: 07-04-2023 ambulatory HERMAN CRANE Facility:[facility] Start: 07-04-2023 End: 07-04-2023 Lab Drop off HERMAN CRANE [facility] Start: 06-26-2023 Telephone encounter Shanna marquez RN [facility] Pre Surgical Evaluation Comment on above: Pre-surgical Evaluat ion (Informed Consent for dental surgery & Anesthesia consent obtained) Start: 06-22-2023 End: 06-22-2023 Subsequent hospital visit by physician Op Xray 2 [facility] Comment on above: Pre-op exam Start: 06-22-2023 End: 06-22-2023 Patient encounter procedure Pse Anesthesia [facility] Pre Surgical Evaluation Comment on above: Pre-op evaluation (P rimary Dx) Start: 06-22-2023 End: 06-22-2023 Preprocedural examination done Pse Anesthesia [facility] Work Phone: Start: 05-25-2023 Admission to [facility] Hiram Rodriguez DDS Work Phone: [facility] Start: 01-17-[address] HERMAN CRANE [...] special examinations DR HERMAN CRANE [facility] Start: 08-22-2022 End: 08-23-[address] HERMAN CRANE Facility:[facility] Start: 08-22-2022 End: 08-23-2022 Encounter for other specified special examinations DR HERMAN CRANE Facility:[facility] Start: 07-04-2022 End: 07-05-[address] HERMAN CRANE Facility:[facility] Start: 05-17-2022 Telephone encounter Grupo Morales MD Work Phone: Ophthalmology Comment on above: REturned call Start: 05-08-2022 Telephone encounter Angel Sexton MD Work Phone: Ophthalmology Comment on above: Question Start: 09-16-2022 Telephone encounter Grupo Morales MD Work Phone: [...] Date Procedure Procedure Detail Performing Clinician Start: 02-24-2025 LIMITED ORAL EVALUAT ION - PROBLEM FOCUSED Kendra Jaramillo DDS Work Phone: Start: 02-24-2025 PANORAMIC RADIOGRAPH IC IMAGE Kendra Jaramillo DDS Work Phone: Start: 12-19-2023 Basic metabolic pane l calcium total Ling Markiv MILL FEEDER-MATHEMATICS TECHNICIAN Work Phone: Start: 10-28-2023 Antibody screen PHOENIX CARDENAS Comment on above: Order Comment: Speci men Type: BLOOD SPECIMEN Ordering Facility: [facility] Address: [address] [place] [address] Performed By: #### 2 [id number], [id number], [id number] #### [facility] CLIA [id number] [address] [place] [address] [place] [address] [place] Start: 07-16-2023 End: 07-16-2023 Assay of magnesium Yobany Smith PA-C Work Phone: Start: 07-16-2023 Ct head/brain w/o co ntrast material Yobany Smith PA-C Work Phone: Start: 06-22-2023 Radiologic exam ches t 2 views Franc Beyer MD Work Phone: Plan of Treatment Date Care Activity Detail Author Start: 2042 Shingles (RZV) Vacci ne (1 of 2) Shingles (RZV) Vaccine (1 of 2) [facility] Start: 07-10-2029 Tetanus vaccination [facility] Start: 07-10-2029 Urine microalbumin profile DTaP,Tdap,Td Vaccine (2 - Td or Tdap) [facility] Start: 04-20-2025 Influenza vaccination INFLUENZA VACC INE (#1) [facility] Start: 12-02-2024 End: 12-02-2024 [facility] Comment on above: Arrived Start: 05-21-2024 End: 05-21-2024 Patient encounter procedure 05/21/2024 9:40 AM EDT [facility] [address] [place] [address] Cris Walters PA [address] [place] [address] [facility] Comment on above: Arrived Start: 04-20-2024 COVID-19 VACCINE ( season) COVID-19 VACCINE ( season) [facility] Start: 04-20-2024 COVID-19 Vaccine ( season) COVID-19 Vaccine ( season) [facility] Start: 04-20-2024 COVID-19 Vaccine ( season) COVID-19 Vaccine ( season) [facility] Start: 04-20-2024 Influenza vaccination Influenza Vacc ine (#1) [facility] Start: 03-11-2024 End: 03-11-2024 Patient encounter procedure 03/11/2024 9:00 AM EDT Office Visit [facility] [address] [place], [place] [id number] Iain Lazcano MD [address] [place] [address] Cataracts Ophthalmology Comment on above: Cataracts Start: 12-28-2023 End: 12-28-2023 Admission to same day surgery center 12/28/2023 10:01 AM EDT - 12/28/2023 12:21 PM EDT Surgery [facility] Ambulatory Surgery [address] [place] [id number] Mari Traore, DMD [address] [place], [place] [phone] DENTAL RESTORATIONS [facility] Ambulatory Surgery Comment on above: DENTAL RESTORATIONS Start: 12-28-2023 End: 12-28-2023 DENTAL RESTORATIONS [facility] Start: 12-28-2023 Subsequent hospital visit by physician 12/28/2023 10:01 AM EDT Hospital Encounter [facility] Ambulatory Surgery [address] [place] [id number] Mari Traore, DMD [address] [place], [place] [id number] [facility] Ambulatory Surgery Start: 12-28-2023 End: 12-28-2023 Patient encounter procedure 12/28/2023 9:00 AM EDT Procedure Visit [facility] [address] [place] [address] Mari Traore, DMD [address] [place], [place] [phone] [facility] Start: 08-20-2023 Behavioral Health Screening Behavioral Health Screening [facility] Start: 08-20-2023 Depression Assessment Depression Ass essment [facility] Start: 07-16-2023 End: 07-16-2023 DENTAL RESTORATIONS DENTAL RESTORATIONS Routine scheduled Caries 07/16/2023 1:45 PM EST [facility] Start: 07-16-2023 End: 07-16-2023 Admission to same day surgery center 07/16/2023 9:27 AM EST - 07/16/2023 11:24 AM EST Surgery [facility] Ambulatory Surgery [address] [place] [id number] Harpreet Mccurdy, DDS [address] [place], [place] [phone] DENTAL RESTORATIONS [facility] Ambulatory Surgery Comment on above: DENTAL RESTORATIONS Start: 07-16-2023 End: 07-16-2023 DENTAL RESTORATIONS DENTAL RESTORATIONS Routine scheduled Caries 07/16/2023 9:27 AM EST [facility] Start: 07-16-2023 Subsequent hospital visit by physician [facility] Start: 06-22-2023 End: 06-22-2023 Patient encounter procedure 06/22/2023 2:30 PM EDT Office Visit [facility] [address] [place] [address] Franc Beyer MD [facility] [place] [phone] [facility] Start: 04-20-2023 COVID-19 Vaccine () COVID-19 Vaccine ( season) [facility] Start: 04-20-2023 Influenza vaccination Influenza Vacc ine (#1) [facility] Start: 05-20-2022 Influenza vaccination Influenza Vacc ine (#1) [facility] Start: 04-20-2022 Influenza vaccination INFLUENZA (#1) [facility] Start: 08-20-2021 DEPRESSION ASSESSMENT DEPRESSION ASS ESSMENT [facility] Start: 08-10-2021 COVID-19 VACCINE (4 - Booster for Pfizer series) COVID-19 VACCINE (4 - Booster for Pfizer series) [facility] Start: 2019 HPV Vaccine (optiona l start 27-45 years) HPV Vaccine (optional start 27-45 years) [facility] Start: 02-17-2014 Annual wellness visit Annual W ellness Visit ([id number]) [facility] Start: 2011 Hepatitis A (HAV) Vaccine (optional start 19+ years) Hepatitis A (HAV) Vaccine (optional start 19+ years) [facility] Start: 2011 Hepatitis B vaccination [facility] Start: 2011 Hepatitis B Vaccine (1 of 3 - 19+ 3-dose series) Hepatitis B Vaccine (1 of 3 - 19+ 3-dose series) [facility] Start: 2011 Urine microalbumin profile DTAP,TDAP,TD (1 - Tdap) [facility] Start: 2010 Annual PCP Team Tool Machine Shop Supervisor jenni Disease Visit Annual PCP Team Chronic Disease Visit [facility] Start: 2010 Hepatitis C screening M [facility] Start: 2010 HEPATITIS C SCREENING HEPATITIS C SC REENING [facility] Start: 2010 HIV SCREENING HIV SCREENING [facility] Start: 2010 HIV screening HIV Screening [facility] Start: 2007 HIV screening [facility] Start: 2004 Adult depression screening assessment DEPRESSION SCREENING [facility] Start: 1992 HEPATITIS B (1 of 3 - 3-dose series) HEPATITIS B (1 of 3 - 3-dose series) [facility] Start: 1992 Hepatitis B vaccination Hepati tis B (HBV) Vaccine (1 of 3 - 3-dose series) [facility] Start: 1992 Hepatitis C screening HEPATITI S C VIRUS SCREENING [facility] Start: 1992 Thyroid stimulating hormone [facility] COMPREHENSIVE ORAL E GORDON - NEW/EST PATIENT COMPREHENSIVE ORAL EVAL - NEW/EST PATIENT Dental Routine 1 Occurrences starting 02/24/2025 [facility] Work Phone: Comment on above: 1 Occurrences starti ng 02/24/2025 DENTAL RESTORATIONS DENTAL OMAR RATIONS Routine scheduled Caries [facility] INTRAORAL - COMPLETE SERIES OF RADIOGRAPHIC IMAGES INTRAORAL - COMPLETE SERIES OF RADIOGRAPHIC IMAGES Dental Routine 1 Occurrences starting 02/24/2025 [facility] Work Phone: Comment on above: 1 Occurrences starti ng 02/24/2025 PROPHYLAXIS - ADULT PROPHYLAXIS - ADULT Dental Routine 1 Occurrences starting 02/24/2025 [facility] Work Phone: Comment on above: 1 Occurrences starti ng 02/24/2025 URINALYSIS, REFLEX MICROSCOPIC URINALYSIS, REFLEX MICROSCOPIC Lab Routine Screening for genitourinary condition Ordered: 12/03/2023 [facility] Work Phone: Comment on above: Ordered: 12/03/2023 [facility] Immunizations Immunization Date Immunization Notes Care Provider Jason lowe 06-05-2024 influenza virus vaccine, unspecified formulation Kendra Jaramillo DDS Work Phone: [facility] Work Phone: 06-15-2021 influenza, injectabl e, quadrivalent, preservative free To Assigned [facility] 06-15-2021 influenza virus vaccine, unspecified formulation To Assigned [facility] 05-26-2020 influenza, injectabl e, quadrivalent, preservative free To Assigned [facility] 07-10-2019 tetanus toxoid, reduced diphtheria toxoid, and acellular pertussis vaccine, adsorbed To Assigned [facility] 06-13-2019 influenza, injectabl e, quadrivalent, preservative free To Assigned [facility] 05-29-2018 influenza, injectabl e, quadrivalent, preservative free To Assigned [facility] 06-13-2017 influenza, injectabl e, quadrivalent, contains preservative To Assigned [facility] 06-10-2015 influenza, injectabl e, quadrivalent, preservative free To Assigned [facility] 06-12-2012 influenza, seasonal, injectable To Assigned [facility] 05-03-2011 influenza, seasonal, injectable, preservative free To Assigned [facility] 06-15-2010 influenza, seasonal, injectable To Assigned [facility] 07-07-2009 novel [id number], preservative-free, injectable To Assigned [facility] 05-11-2009 influenza, seasonal, injectable To Assigned [facility] 06-15-2008 influenza, seasonal, injectable To Assigned [facility] 06-11-2008 influenza virus vaccine, whole virus To Assigned [facility] Payers Date Payer Category Payer Specific state progr [facility] (list/ local code) [place] FUNDED 0000 [id number] 07-08-2020 Unknown [id number] 07-20-2017 Dental --Stand Alone DENTAL-MEDI CAID [id number] 07-20-2017 Medicaid [id number] 02-17-2013 Medicare [id number] [id number] .[id number] 02-17-2013 Medicare FFS MEDICARE [id number] 1992 Unknown [id number] 2.840.1.285179.3.579.2. 727 1992 Unknown [id number] 2.16840.1.428546.3.579.2. 727 1992 Unknown [id number] 2.840.1.585628.3.579.2. 9 1992 Unknown [id number] 2.16840.1.994838.3.579.2. 1259 1992 Unknown [id number] 2.16840.1.552830.3.579.2. 1259 1992 Unknown [id number] 2.16.840.1.115077.3.579.2. 1259 1992 Unknown [id number] 2.16.840.1.283238.3.579.2. 1259 1992 Unknown [id number] 2.16.840.1.553529.3.579.2. 732 1992 Unknown [id number] 2.16.840.1.201438.3.579.2. 732 1992 Unknown [id number] 2.16.840.1.337471.3.579.2. 732 1992 Unknown [id number] 2.16.840.1.700200.3.579.2. 732 08-20-1957 Medicaid [id number] 08-20-1957 Medicare [id number] Unknown [id number] 2.16.840.1.361576.3.579.2. 593 Unknown [id number] 2.16.840.1.568104.3.579.2. 593 Unknown [id number] 2.16.840.1.887074.3.579.2. 593 Unknown [id number] 2.16.840.1.436740.3.579.2. 593 Unknown [id number] 2.16.840.1.492249.3.579.2. 593 Unknown [id number] 2.16.840.1.455013.3.579.2. 593 Unknown [id number] 2.16.840.1.334074.3.579.2. 593 Unknown [id number] 2.16.840.1.922383.3.579.2. 593 Specific state progr ams (list/ local code) TB FUNDED Member Subscriber Plan / Payer (Effective for All Dates) Name: Johnny Devine Member ID: Not on file Relation to Subscriber: Self Name: Johnny Devine Subscriber ID: Not on file Payer ID: Not on file Group ID: Not on file Type: Other Address: [place] [id number] Social History Date Type Detail Facility Start: 07-08-2019 End: 02-24-2025 Tobacco smoking status NHIS Never smoked tobacco [facility] Start: 07-08-2019 End: 02-24-2025 Tobacco use and exposure Smokeless tobacco non-user [facility] Start: 02-04-2021 End: 02-24-2025 Alcohol intake Lifetime non-drinker (finding) [facility] Start: 07-13-2020 History SDOH Alcohol Frequency 1 [facility] Start: 1992 Sex Assigned At Not on file M [facility] Start: 05-04-2022 End: 12-19-[address] [facility] Tobacco smoking consumption unknown [facility] Start: 04-24-2022 End: 05-04-2022 Exposure to SARS-CoV-2 (event) Not sure [facility] Start: 10-29-2023 End: 02-24-2025 Gender identity Not on file [facility] Tobacco smoking status No Smokin g Status Entered [facility] Start: 10-29-2023 End: 02-24-2025 History of Social function [facility] Work Phone: Has the [employer], or [email or web address] threatened to shut off services in your home in past 12Mo Patient unable to answer [facility] Work Phone: How often to you hav e a drink containing alcohol? Never [facility] Work Phone: Start: 07-20-2017 End: 01-26-2025 Sex Male (finding) [facility] Clinical Notes 03-29-2022 to 02-24-2025 Kendra Jaramillo DDS - 02/24/2025 10:00 AM EDTPatient InstructionsDental Procedure Details - Kendra Jaramillo DDS - 02/24/2025 10:00 AM BETI Antonio - 12/02/2024 12:40 PM EDTDischaricardo Instructions Note Date & Type Note Facility 02-24-2025 History of Present illness Narrative Dental Exam 02/24/2025 Tanning Wheel Filler Needed: No. Chief Complaint Patient presents with [...] BY MOUTH THREE TIMES A DAY PASTOR Jung (Aquaphor Adv Therapy Healing) 41 % [...] capsule Take 1 capsule by mouth daily. [place] 300 MG capsule TAKE ONE CAPSULE BY [...] resulting in substantial functional limitations requiring modifications to deliver treatment to provide comprehensive oral health care based on findings including: Cognitive: Other (describe in note) Patient has moderate IDD [...] a new patient examination accompanied by their caregiver. Medical history and guardianship documentation were provided at [...] an appropriate candidate for sedation within the [facility] clinic setting. As such, we have [...] Kendra Jaramillo DDS documented in this encounter [facility] [employer] [facility] Work Phone: 02-24-2025 Instructions Kendra Jaramillo DDS - 02/24/2025 10:00 AM EDT Your Caries Risk Report Your Risk Level: Low Moderate High x MODERATE RISK MINIMAL RECOMMENDATIONS: Bitewing radiographs every 18-24 months (ADA recommendations) Periodic recall exams every 4-6 months to reevaluate caries risk OTC fluoride-containing toothpaste twice daily. After breakfast and at bedtime. OTC 0.05% NaF rinse daily ADDITIONAL RECOMMENDATIONS: documented in this encounter [facility] Work Phone: 02-24-2025 Miscellaneous Notes Was local anesthetic administered? No Refer to assessment note above documented in this encounter [facility] Work Phone: 02-24-2025 information specialist procedure note Was local anesthetic administered? No Refer to assessment note above [facility] Work Phone: 12-16-2024 Note Outreach Team ) Contact Details: [...] date (10 year lookback): Not Found [employer] 12-16-2024 Telephone encounter Note Outreach Team ([phone]) Contact Details: I did not contact. Pt [...] Smear date (10 year lookback): Not Found [facility] 12-16-2024 Miscellaneous Notes Outreach Team ([phone]) Contact Details: I did not contact. Pt [...] lookback): Not Found documented in this encounter [facility] 12-02-2024 History of Present illness Narrative [...] CT scan of the brain 11/03/23 at [facility] that revealed volume loss, especially in [...] or worsening symptoms. documented in this encounter [facility] 05-21-2024 History of Present illness Narrative [...] CT scan of the brain 11/03/23 at [facility] that revealed volume loss, especially in [...] in 6 months documented in this encounter [facility] 02-13-2024 Evaluation + Plan note Diagnostic Tests PendingKeppra Lvl 02/13/24Lamotrigine Level 02/13/24 [facility] 01-11-2024 Telephone encounter Note Jessica from [facility] [phone] is caller. She states was originally told [...] needs at present time. Cris Dinh, RN [facility] [facility] 01-11-2024 Miscellaneous Notes Jessica from [facility] [phone] is caller. She states was originally told [...] Cris Dinh, RN documented in this encounter [facility] 12-28-2023 Hospital Discharge instructions Benjamín Guo - 12/28/2023 2:17 PM EDT PERIOPERATIVE DISCHARGE/HOME-GOING INSTRUCTIONS ANESTHESIA - GENERAL (ADULT) If a problem arises, you may contact your physician by calling [phone] and asking for the resident region manager for Dental service. Special Care Needs: [...] sent through Care Everywhere.Tooth Extraction Discharge Instructions (Puerto Rican)documented in this encounter [facility] 12-28-2023 History and physical note Surgical [...] possible Mari Traore DMD 12/28/2023 10:09 [facility] Note Surgical Attestation : [...] Mari Traore DMD 12/28/2023 10:09 AM [facility] History and physical note Surgical [...] 12/28/2023 10:09 AM documented in this encounter [facility] 12-28-2023 Miscellaneous Notes Brief Operative Note PHE OR 3 Johnny Devine 33 year old male Surgical Contact Serial Number: [id number] Preoperative Diagnosis: Pre-op Diagnosis * Caries [K02.9] Moderate intellectual disability [F79] Postoperative Diagnosis: Moderate intellectual disability [F79] Procedures: Comprehensive exam [47152] Full mouth X-ray [ 60526] Extractions [44530] Restorations [88186] Prophy 42442] Fluoride treatment [57480] Surgeon(s): Surgeon(s): Mari Traore DMD Staff: Processing Operator Nurse: Henrietta Johnson Anesthesia: General Anesthesia Staff: Masters, Selena R., MILL FEEDER-GAS INSPECTOR Specimen(s): * No specimens in log * [...] disability[F79] @ENCORD@ Surgeon: Dr. Mari Traore DMD Recruiter Account Manager Surgeon: Reema Whiting DDS Anesthesia: General- Nasal [...] 4 mg/0.1 mL nasal liquid Use 1 [place] in one nostril (alternate sides) as needed [...] were discussed with the patient and/or legal customer care representative. The risks, benefits and alternatives were reviewed. Questions regarding blood transfusions were answered. The patient /or the patient s legal customer care representative agree with the plan for transfusion of blood and/or blood components. documented in this encounter [facility] 12-28-2023 Surgery Postoperative evaluation and management note Brief Operative Note PHE OR 3 Johnny Devine 33 year old male Surgical Contact Serial Number: [id number] Preoperative Diagnosis: Pre-op Diagnosis * Caries [K02.9] Moderate intellectual disability [F79] Postoperative Diagnosis: Moderate intellectual disability [F79] Procedures: Comprehensive exam [42097] Full mouth X-ray [ 81078] Extractions [42075] Restorations [05432] Prophy 34584] Fluoride treatment [08527] Surgeon(s): Surgeon(s): Mari Traore DMD Staff: Processing Operator Nurse: Henrietta Johnson Anesthesia: General Anesthesia Staff: Selena Camacho APRN-VANNESA Specimen(s): * No specimens in log * [...] by Reema Whiting DDS 12/28/2023 1;48 pm [facility] 12-28-2023 Surgery Surgical operation note Surgical Case Number Data Unavailable Operating Room Data Unavailable Preoperative Diagnosis(es): Pre-op Diagnosis * Caries [K02.9] Moderate intellectual disability [F79] Postoperative Diagnosis(es): Moderate intellectual disability[F79] @ENCORD@ Surgeon: Dr. Mari Traore DMD Recruiter Account Manager Surgeon: Reema Whiting DDS Anesthesia: General- Nasal [...] 4 mg/0.1 mL nasal liquid Use 1 [place] in one nostril (alternate sides) as needed [...] procedure. Reema Whiting DDS 12/28/2023 1:53 pm [facility] 12-28-2023 Progress note Formatting of t his note is different from the original. Blood Attestation: ATTESTATION OF INFORMED CONSENT FOR BLOOD: The transfusion of blood and/or blood components were discussed with the patient and/or legal customer care representative. The risks, benefits and alternatives were reviewed. Questions regarding blood transfusions were answered. The patient /or the patient s legal customer care representative agree with the plan for transfusion of blood and/or blood components. [facility] 12-28-2023 History of Present illness Narrative Patient takes his seizure medication with pudding, facility held them today for dental surgery. Caregiver brought capsules with them to pre-op. Per Dr. Saldivar, divalproex 125 mg x 4 capsules (500 mg) were opened and sprinkles given to patient with 50 mL of water in pre-op. 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 MB cusp tip was visualized upon extraction of #17, but well encased in bone and would not be exposed to the oral cavity following healing of the extraction site. Preoperative Diagnosis(es): Pre-op Diagnosis * Caries [K02.9] Moderate intellectual disability [F79] Postoperative Diagnosis(es): Moderate intellectual disability[F79] Surgeon: Dr. Mari Traore DMD Recruiter Account Manager Surgeon: Reema Whiting DDS Anesthesia: General- Nasal [...] of surgery: Stable documented in this encounter [facility] 12-21-2023 Evaluation note Addendum 12/21/2023- Caregiver @ [facility] called to relay that patient [...] Kiko VASQUEZ RN updated nursing staff @ [facility]. [facility] 12-21-2023 Miscellaneous Notes Addendum 12/21/2023- Caregiver @ [facility] facility called to relay that patient unable [...] Kiko VASQUEZ RN updated nursing staff @ [facility]. Patient was identified by name and date of . Jaswinderlary Arredondo Patient at risk for falls:No Falls Risk protocol implemented: N/A documented in this encounter [facility] 12-19-2023 Instructions Ling Coffman APRN-MATHEMATICS TECHNICIAN - 12/19/2023 11:26 AM EDT On the [...] for pain. Please hold all Vitamin E, [place] 3, fish oil and herbal supplements for 1 week prior to surgery. Please use this LIST to prepare for your surgery/procedure: ? Assume that any lab or testing done during your Pre-admission testing appointment is within normal limits unless otherwise contacted. ? Expect a call from [employer] one business day prior to surgery for [...] your Preparing for Your Surgery/Procedure booklet or [email or web address] if you have questions. Contact the Pre-Admission Testing department at [phone] or your surgeon's office with any questions [...] stay with you after surgery. Please call [facility] [employer] if you need transportation assistance or have concerns about going home [phone]. ? SLEEP APNEA PATIENTS: Bring your sleep apnea machine and mask. ? PLEASE BE ON TIME. A late arrival may result in the cancellation/ delay of your surgery. [facility]; it is our pleasure to care for you documented in this encounter [facility] 12-19-2023 Instructions Shanna Sauceda RN - 12/19/2023 11:26 AM EDT [facility] staff: Since patient is unable to take [...] for pain. Please hold all Vitamin E, [place] 3, fish oil and herbal supplements for 1 week prior to surgery. Please use this LIST to prepare for your surgery/procedure: ? Assume that any lab or testing done during your Pre-admission testing appointment is within normal limits unless otherwise contacted. ? Expect a call from [employer] one business day prior to surgery for [...] your Preparing for Your Surgery/Procedure booklet or [email or web address] if you have questions. Contact the Pre-Admission Testing department at [phone] or your surgeon's office with any questions [...] stay with you after surgery. Please call [employer] if you need transportation assistance or have concerns about going home [phone]. ? SLEEP APNEA PATIENTS: Bring your sleep apnea machine and mask. ? PLEASE BE ON TIME. A late arrival may result in the cancellation/ delay of your surgery. Thank you for choosing [facility]; it is our pleasure to care for you documented in this encounter [facility] 12-19-2023 Evaluation note Patient was identified by name and date of . Jaswinder Arredondo Patient at risk for falls:No Falls Risk protocol implemented: N/A [facility] 12-19-2023 Miscellaneous Notes Patient was identified by name and date of . Jaswinder Arredondo Patient at risk for falls:No Falls Risk protocol implemented: N/A documented in this encounter [facility] 12-19-2023 History of Present illness Narrative Images from the original note were not included. Pre-Admission Testing Consultation Johnny Devine, [id number] 33 year old Male 12/19/2023 Consult placed to [facility] by Mari Traore, due to significant PMH of Hypothyroidism , Bipolar, Autistic disorder ,Epilepsy [facility] Triage Risk Score Total Score: 3 [...] intervention warranted . Patient with Lamaar from [facility] during this appointment Patient is here for pre-admission optimization and education prior to surgery. RECENT ILLNESS: Serious illness or hospitalization within the last six months. Yes 10/28/2023 HOSPITAL COURSE: Johnny Devine is a 33 year old male with developmental delay and no PSH who presents as a transfer to [facility] from [facility] ED for further management of small bowel obstruction. Given patient's baseline cognitive status, NGT difficult to maintain. He was admitted to the [facility] under care of general surgery and was taken to the OR the following morning for diagnostic laparoscopy. Intra-operative findings demonstrated no adhesins, no apparent hernias, dilated small/large bowel, redundant sigmoid c/f volvulus, easily reduced. After recovering in the PACU, he was taken to the [facility] with NGT in place. Patient arrived to [facility] with 8 Fr pediatric haskins catheter in [...] in home regimen. Stable for discharge to custodial. Neurology Recommendations on Discharge: - Discharge on [...] DENTAL RESTORATIONS; Surgeon: Harpreet Mccurdy DDS; Location: [facility]; Service: Dental Past [...] DATA: CBC @ [facility] 11/07/2023 CBC Order: [id number] Component Ref Range & Units 1 mo [...] 0418 141 110 21 91 Comment: The [place] Diabetes Association (ADA) provides guidance for cutoff [...] Standards of Medical Care in Diabetes 2016, [place] [employer]. Diabetes Care. 2016.39(Suppl 1). 8 0.70 8.2 11/06/23 0943 146 112 18 83 Comment: The [place] Diabetes Association (ADA) provides guidance for cutoff [...] Standards of Medical Care in Diabetes 2016, [place] [employer]. Diabetes Care. 2016.39(Suppl 1). 6 0.69 8.9 11/05/23 0418 142 112 23 96 Comment: The [place] Diabetes Association (ADA) provides guidance for cutoff [...] Standards of Medical Care in Diabetes 2016, [place] [employer]. Diabetes Care. 2016.39(Suppl 1). 5 0.64 7.6 11/04/23 0826 145 112 24 79 Comment: The [place] [employer] (ADA) provides guidance for cutoff [...] Standards of Medical Care in Diabetes 2016, [place] [employer]. Diabetes Care. 2016.39(Suppl 1). 4 [...] 1:39 PM 12/19/2023 documented in this encounter [facility] 12-19-2023 History of Present illness Narrative Images from the original note were not included. Pre-Admission Testing Consultation Johnny Devine, [id number] 33 year old Male 12/19/2023 Consult placed to [facility] by Mari Traore, due to significant PMH of Hypothyroidism , Bipolar, Autistic disorder ,Epilepsy [facility] Triage Risk Score Total Score: 3 [...] intervention warranted . Patient with Lamaar from [facility] facility during this appointment Patient is here for pre-admission optimization and education prior to surgery. RECENT ILLNESS: Serious illness or hospitalization within the last six months. Yes 10/28/2023 HOSPITAL COURSE: Johnny Devine is a 33 year old male with developmental delay and no PSH who presents as a transfer to [facility] from [facility] ED for further management of small bowel obstruction. Given patient's baseline cognitive status, NGT difficult to maintain. He was admitted to the [facility] under care of general surgery and was taken to the OR the following morning for diagnostic laparoscopy. Intra-operative findings demonstrated no adhesins, no apparent hernias, dilated small/large bowel, redundant sigmoid c/f volvulus, easily reduced. After recovering in the PACU, he was taken to the [facility] with NGT in place. Patient arrived to [facility] with 8 Fr pediatric haskins catheter in [...] in home regimen. Stable for discharge to custodial. Neurology Recommendations on Discharge: - Discharge on [...] DENTAL RESTORATIONS; Surgeon: Harpreet Mccurdy DDS; Location: [facility] Surgery Center; Service: Dental Past [...] DATA: CBC @ [facility] 11/07/2023 CBC Order: [id number] Component Ref Range & Units 1 mo [...] 0418 141 110 21 91 Comment: The [place] Diabetes Association (ADA) provides guidance for cutoff [...] Standards of Medical Care in Diabetes 2016, [place] [employer]. Diabetes Care. 2016.39(Suppl 1). 8 0.70 8.2 11/06/23 0943 146 112 18 83 Comment: The [place] Diabetes Association (ADA) provides guidance for cutoff [...] Standards of Medical Care in Diabetes 2016, [place] [employer]. Diabetes Care. 2016.39(Suppl 1). 6 0.69 8.9 11/05/23 0418 142 112 23 96 Comment: The [place] Diabetes Association (ADA) provides guidance for cutoff [...] Standards of Medical Care in Diabetes 2016, [place] [employer]. Diabetes Care. 2016.39(Suppl 1). 5 0.64 7.6 11/04/23 0826 145 112 24 79 Comment: The [place] Diabetes Association (ADA) provides guidance for cutoff [...] Standards of Medical Care in Diabetes 2016, [place] [employer]. Diabetes Care. 2016.39(Suppl 1). 4 [...] 1:39 PM 12/19/2023 documented in this encounter [facility] 12-19-2023 Note Pre-Admission Testin g Consultation Johnny Devine, [id number] 33 year old Male 12/19/2023 Consult placed [...] intervention warranted . Patient with Lamaar from [facility] facility during this appointment Patient is here for pre-admission optimization and education prior to surgery. RECENT ILLNESS: Serious illness or hospitalization within the last six months. Yes 10/28/2023 HOSPITAL COURSE: Johnny Devine is a 33 year old male with developmental delay and no PSH who presents as a transfer to [facility] from [facility] ED for further management of small bowel obstruction. Given patient's baseline cognitive status, NGT difficult to maintain. He was admitted to the [facility] under care of general surgery and was taken to the OR the following morning for diagnostic laparoscopy. Intra-operative findings demonstrated no adhesins, no apparent hernias, dilated small/large bowel, redundant sigmoid c/f volvulus, easily reduced. After recovering in the PACU, he was taken to the [facility] with NGT in place. Patient arrived to [facility] with 8 Fr pediatric haskins catheter in [...] in home regimen. Stable for discharge to custodial. Neurology Recommendations on Discharge: - Discharge on [...] SERVICES; Ser (more content not included)... [employer] 12-03-2023 Note HNO ID: [id number] Author: OSCAR RUIZ MD Service: ? Author [...] from ongoing urologic care. Oscar Ruiz MD [facility] 12-03-2023 Note Patient Outreach (UR OLMN) JOHNNY DEVINE ([id number]) 1990 M Date Time Provider Department 12/03/23 RAFAEL GIRALDO During your visit today, we recorded the following information about you: Allergies As of Date: 12/03/2023 Noted Allergy Reaction BIAXIN (CLARITHROMYCIN) 05/04/2022 14 - Other: See Comments Comments: caregiver does not know Date Reviewed: 12/03/2023 Reviewed by: Sukhdeep Barton [facility] - Fully Assessed Visit Diagnosis:Screening for genitourinary condition [Z13.89] Order(s):URINALYSIS, REFLEX MICROSCOPIC [OWZ2235] Order #: [id number] Prescriptions as of 12/06/2023 - cloNIDine HCl [...] mouth two times a day. 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 Oscar Ruzi MD documented in this encounter [facility] 11-28-2023 Note HNO ID: [id number] Author: VICTORIA SANCHEZ APRN.MATHEMATICS TECHNICIAN Service: ? Author Type: Nurse Practitioner Type: Progress Notes Filed: 11/28/2023 10:19 Note Text: [facility] Clinic Date: November 28, 2023 Johnny Devine 33 year old male CHIEF COMPLAINT: Patient presents for follow up from surgery. HPI: Here for follow up after diagnostic laparotomy on 10/29/[address] Robin. Patient also underwent a dorsal slit procedure with urology on 10/30/2023 for paraphimosis. Patient with a mechanical shovel operator today to discuss his postoperative course since [...] mouth two times a day. 199, 1999 loratadine 10 mg cap Take 10 [...] mouth two times a day. 08, 1999 LORazepam (ATIVAN) 2 mg tab TAKE [...] for further surgery discussion Victoria Sanchez, MSN, MILL FEEDER-MATHEMATICS TECHNICIAN November 28, 2023 [facility] 11-28-2023 History of Present illness Narrative [facility] Clinic Date: November 28, 2023 Johnny Devine 33 year old male CHIEF COMPLAINT: Patient presents for follow up from surgery. HPI: Here for follow up after diagnostic laparotomy on 10/29/[address] Robin. Patient also underwent a dorsal slit procedure with urology on 10/30/2023 for paraphimosis. Patient with a mechanical shovel operator today to discuss his postoperative course since [...] for further surgery discussion Victoria Sanchez, MSN, MILL FEEDER-MATHEMATICS TECHNICIAN November 28, 2023 documented in this encounter [facility] 11-28-2023 Nurse Note What is the reason for your visit today? Post op Who is your referring physician? Dr. Sanchez Are you having poor oral intake? NO Have you had unintentional weight loss of 15 lbs/7 Kg in the last 3-6 months? NO Bowels: regular Wound: clean & dry Temperature: No Drains: No documented in this encounter [facility] 11-12-2023 Miscellaneous Notes Called care [...] present time. Office line given. Cris Dinh, MIRIAM documented in this encounter [facility] 11-07-2023 Note HNO ID: [id number] Author: HERMAN SALOMON, RN Service: Care Management Author Type: Registered Nurse Type: Care Mgt Progress Note Filed: 11/07/2023 14:56 Note Text: CARE MANAGEMENT DISCHARGE NOTE SERVICE DATE: November 07, 2023 SERVICE TIME: 2:56 PM Admission Date: 10/28/2023 LOS: 10 days Discharge Arrangement Discharge Arrangement: [facility] Services Arranged Medical Services: Other: See Comment (no services indicated) Caregiver Assessment Caregiver is ready, willing and able to meet the patient's needs as recommended by the inter-professional team: Yes Name of Caregiver: Kristofer Pillai Transportation Arrangements Transportation Arrangements: Car Destination: [facility] Additional Information: Patient d/c ready to [facility] with no skilled needs identified. Patient and bedside RN aware of plan. senior care to transport patient home via private auto. SIGNATURE: Herman Salomon RN PATIENT NAME: Johnny Devine DATE: November 07, 2023 TIME: 2:55 PM CONTACT #: [phone] [facility] 11-07-2023 Note HNO ID: [id number] Author: GIA MULLER MD Service: General Surgery [...] * DORSAL SLIT FORESKIN EXCEPT - General [facility] 11-07-2023 Note HNO ID: [id number] Author: MAYANK READ, RN Service: Nursing Author Type: Registered Nurse Type: Nursing Progress Note Filed: 11/07/2023 09:25 Note Text: Paged primary team of low BP. [facility] 11-06-2023 Note HNO ID: [id number] Author: ALEXANDRA CHAIREZ MD Service: General Surgery [...] Chairez MD General Surgery Resident Екатерина(Jacob No): [phone] Grundfest(Boy Alcaraz Petro): [phone] After 6PM + Weekends: [phone] INTERVAL EVENTS / PERTINENT REVIEW OF SYSTEMS: [...] (!) 55 (!) 54 78 Resp: 18 Temp: 36.6 ?C (97.9 ?F) 36.9 ?C [...] * DORSAL SLIT FORESKIN EXCEPT - General [facility] 11-06-2023 Note HNO ID: [id number] Author: BERNARDA SUE MD Service: Neurology General [...] DATE: November 06, 2023 TIME: 12:26 AM [facility] 11-05-2023 Note HNO ID: [id number] Author: LEEANN TELLES MD Service: General Surgery [...] as appropriate, non-distended Leeann Telles MD PGY1 [facility] 11-05-2023 Note HNO ID: [id number] Author: JUAQUIN KRISHNAMURTHY RN Service: Nursing Author [...] to bedside, Valium ordered at this time. [facility] 11-05-2023 Note HNO ID: [id number] Author: HERMAN SALOMON RN Service: Care Management Author Type: Registered Nurse Type: Care Mgt Progress Note Filed: 11/05/2023 11:21 Note Text: CARE MANAGEMENT PROGRESS NOTE SERVICE DATE: 11/05/2023 SERVICE TIME: 11:20 AM LOS: 8 days [place] of Choice Explained: [place] of Choice Given: No Reason Not Given: No placements necessary Anticipated # of Days Until Discharge: 4 Needs Prior to Discharge: Needs Prior to Discharge: To Be Determined Post-Acute Discharge Plan: Patient from [facility]. Plan is to return at discharge. room service supervisor is Magi [phone]. Per Magi, she will provide transport at discharge. Magi is requesting an abdominal binder at discharge due to patient's history of self-injurious behavior. 33 year old male POD #7 diagnostic laparoscopy. Patient is non-verbal, developmental delay and lives in custodial. No skilled needs anticipated. SIGNATURE: Herman Salomon RN PATIENT NAME: Johnny Devine DATE: November 05, 2023 TIME: 11:19 AM PAGER/CONTACT #: [phone] [facility] 11-05-2023 Note HNO ID: [id number] Author: CONNIE CAICEDO MD Service: Neurology General Author Type: Resident Type: Progress Notes Filed: 11/05/2023 17:50 Note Text: NEUROLOGY CONSULT PROGRESS NOTE SERVICE DATE: 11/05/2023 SERVICE TIME: 10:30 am Current Attending Provider: Samuel Robni* Subjective Interval History: Today, Johnny is not [...] for the bedside EEG was recorded from 043 on 11/04/23 until 433 on 11/05/23 is suggestive of bilateral cortical [...] Dr. Almanzar. Connie Caicedo MD 5:49 PM [facility] 11-05-2023 Note HNO ID: [id number] Author: ALEXANDRA CHAIREZ MD Service: General Surgery [...] Chairez MD General Surgery Resident Екатерина(Jacob No): [phone] Grundfest(Kieran, Boy, Misti): [phone] After 6PM + Weekends: [phone] INTERVAL EVENTS / PERTINENT REVIEW OF SYSTEMS: [...] 106 87 (!) 42 (!) 45 Resp: 17 Temp: 36.7 ?C (98.1 ?F) 36.3 ?C [...] * DORSAL SLIT FORESKIN EXCEPT - General [facility] 11-04-2023 Note HNO ID: [id number] Author: ALEXANDRA CHAIREZ MD Service: General Surgery [...] neurology(clarified with [facility] and patient has been getting scheduled lorazepam [...] Chairez MD General Surgery Resident Екатерина(Jacob No): [phone] Grundfest(Kieran BoyMisti): [phone] After 6PM + Weekends: [phone] INTERVAL EVENTS / PERTINENT REVIEW OF SYSTEMS: [...] * DORSAL SLIT FORESKIN EXCEPT - General [facility] 11-03-2023 Note HNO ID: [id number] Author: ZAIRA ROBERT MD Service: General Surgery [...] (Res) November 03, 2023, 10:29 AM P: [phone] INTERVAL EVENTS / PERTINENT REVIEW OF SYSTEMS: [...] * DORSAL SLIT FORESKIN EXCEPT - General [facility] 11-03-2023 Note HNO ID: [id number] Author: LYLE TRINIDAD RN Service: ? Author Type: Registered Nurse Type: Progress Notes Filed: 11/03/2023 22:32 Note Text: This race and sports book writer was called by another nurse that pt had a witnessed 20 seconds of seizure episode. AMET called and team notified and orders given. [facility] 11-02-2023 Note HNO ID: [id number] Author: LEEANN TELLES MD Service: General Surgery [...] as appropriate, non-distended Leeann Telles MD PGY1 [facility] 11-02-2023 Note HNO ID: [id number] Author: HERMAN SALOMON RN Service: Care Management Author Type: Registered Nurse Type: Care Mgt Progress Note Filed: 11/02/2023 11:43 Note Text: CARE MANAGEMENT WEEKEND PLANNING NOTE DISCHARGE OR POSSIBLE DISCHARGE Date/Time: TBD Disposition: [facility] Transport: Car /Magi Other Concerns: Patient from [facility]. Plan is to return at discharge. room service supervisor is Magi [phone]. Per Magi, she will provide transport at discharge. She will need to be contacted if patient ready to discharge over the weekend. Magi is requesting an abdominal binder at discharge due to patient's history of self-injurious behavior. 33 year old male POD #4 diagnostic laparoscopy. Patient is non-verbal, developmental delay and lives in custodial. Weekend Tractor Drill Operator Pager #: Please see Treatment Team for Care Management Weekend/Holiday coverage. SIGNATURE: Herman Salomon RN PATIENT NAME: Johnny Devine DATE: November 02, 2023 TIME: 11:42 AM PAGER/CONTACT #: [phone] [facility] 11-02-2023 Note HNO ID: [id number] Author: FRANCK MAGDALENO MD Service: General Surgery [...] , appreciate Recs (below); haskins out at [facility], f/u TOV - Recommend applying [...] Andrews MD Acute Care Surgery Resident PAGER [phone] INTERVAL EVENTS / PERTINENT REVIEW OF SYSTEMS: [...] * DORSAL SLIT FORESKIN EXCEPT - General [facility] 11-01-2023 Note HNO ID: [id number] Author: ANA LUISA FARR MD Service: General [...] Farr MD Acute Care Surgery Resident PAGER [phone] INTERVAL EVENTS / PERTINENT REVIEW OF SYSTEMS: [...] * DORSAL SLIT FORESKIN EXCEPT - General [facility] 10-31-2023 Note HNO ID: [id number] Author: ANA LUISA FARR MD Service: General [...] Farr MD Acute Care Surgery Resident PAGER [phone] INTERVAL EVENTS / PERTINENT REVIEW OF SYSTEMS: [...] Drain Duration Indwelling Urinary Catheter 10/30/23 0811 [facility] 10 Fr 1 day SURGERY/PROCEDURE: Procedure(s) and Anesthesia Type: * DORSAL SLIT FORESKIN EXCEPT - General [facility] 10-31-2023 Note HNO ID: [id number] Author: HEAVEN CAMACHO MD Service: Urology Author [...] clinical indicators: x Hypophosphatemia Other, please specify [facility] 10-31-2023 Note HNO ID: [id number] Author: BEATRIZ MEHTA MD Service: General Surgery [...] Mehta MD General Surgery Resident General Surgery: [id number] On nights (6 pm to 6 am) and on Weekends/Holidays, please page the on-call pager: [phone] 10/31/23 2:39 AM [facility] 10-31-2023 Note HNO ID: [id number] Author: JUAQUIN KRISHNAMURTHY RN Service: Nursing Author Type: Registered Nurse Type: Progress Notes Filed: 10/31/2023 01:48 Note Text: Messaged Night team Dr. Mehta about haskins drainage turning bloody. Patient is asleep and comfortable [facility] 10-30-2023 Note HNO ID: [id number] Author: JEREMIE JOAQUIN MD Service: ? Author [...] October 30, 2023 TIME: 8:11 AM CSN: [id number] [facility] 10-30-2023 Note HNO ID: [id number] Author: JEREMIE JOAQUIN MD Service: ? Author Type: Anesthesiologist Type: Anesthesia Procedure Notes Filed: 10/30/2023 11:59 Note Text: ANESTHESIOLOGY PROCEDURE NOTE Airway General Information Procedure Start Time/Medication Administration: 10/30/2023 7:46 AM Patient location during procedure: OR Timeout Performed Pre-procedure: timeout performed Consent Obtained: Yes Patient identity confirmed: arm band, care software team leader and patient Staffing Anesthesiologist: Jeremie [...] Successful intubation technique: video laryngoscopy Devices used: Democracy Engine Endotracheal tube insertion site: oral Blade size: [...] October 30, 2023 TIME: 7:58 AM CSN: [id number] [facility] 10-30-2023 Note HNO ID: [id number] Author: FRANCK MAGDALENO MD Service: General Surgery [...] VTE ppx: SCDs, SQH Dispo: RNF with yoniter Franck Andrews MD Acute Care Surgery Resident PAGER [phone] INTERVAL EVENTS / PERTINENT REVIEW OF SYSTEMS: [...] <1 day Indwelling Urinary Catheter 10/30/23 0130 [facility] 8 Fr <1 day SURGERY/PROCEDURE: Procedure(s) and Anesthesia Type: * DORSAL SLIT FORESKIN EXCEPT - General [facility] 10-29-2023 Note HNO ID: [id number] Author: HERMAN SALOMON RN Service: Care Management [...] by: Per Department Practice Potential Transition Plans [facility]/Supervised Living Advance Directives Current Advance Directive: Other Document: See Comment (Legal guardian) In Chart: Yes Up To Date and Valid: Yes Current Living Arrangements and Support Lives with: Other person(s) [facility] Type of Residence: [facility] Care Facility Name: [facility] Support: Home care staff, Family members How do you manage to accomplish the following: Independent: Ambulation Dependent: Bathe/Shower;Dress;Meals/Meal Prep;Going to the bathroom;Medication Management;Transportation to appointments/community Current Services/Equipment Current Post-Acute Service(s): None [place] of Choice Explained: [place] of Choice Given: No Reason Not Given: No placements necessary Are you interested in bedside delivery of your medications? No Discharge Planning Participant(s): Other person(s);Guardian Name/Relationship: Magi/Sawmill Or Timber Yard Worker Patient/Family Comments: Caregiver Assessment: Caregiver is ready, willing and able to meet the patient's needs as recommended by the inter-professional team: Yes Name of Caregiver: [facility] Transport at Discharge: Transportation Arrangements: Car Destination: Home Needs Prior to Discharge: Needs Prior to Discharge: To Be Determined Post-Acute Discharge Plan: 33 year old male POD #0 diagnostic laparoscopy. Patient is non-verbal, developmental delay and lives in custodial. CM met with patient's legal guardian Delbert and group home manager Magi at bedside. Plan is to return to custodial at discharge. Per Magi [phone]. [phone], she will provide transport. Magi is requesting an abdominal binder at discharge due to patient's history of self-injurious behavior. CM will continue to follow for transitional care needs. SIGNATURE: Herman Salomon RN PATIENT NAME: Johnny Devine DATE: October 29, 2023 TIME: 4:00 PM CONTACT #: [phone] [facility] 10-29-2023 Note HNO ID: [id number] Author: KENZIE MORE APRN.GAS INSPECTOR Service: ? Author Type: Nurse Household Appliances Service Technician Type: Anesthesia Procedure Notes Filed: 10/29/2023 10:18 Note Text: ANESTHESIOLOGY PROCEDURE NOTE Airway General Information Procedure Start Time/Medication Administration: 10/29/2023 10:00 AM Patient location during procedure: OR Timeout Performed Pre-procedure: timeout performed Consent Obtained: Yes Patient identity confirmed: arm band, care software team leader and family Staffing GAS INSPECTOR: Kenzie More APRN.GAS INSPECTOR Indications and Patient Condition Indications for airway management: anesthesia Preoxygenated: yes anesthesia circuit Method: rapid sequence Difficult Mask: No Final Airway Details Final airway type: endotracheal airway Final Endotracheal Airway: ETT Cuffed: yes Successful intubation technique: video laryngoscopy Devices used: Democracy Engine Endotracheal tube insertion site: oral Blade: Raj Blade size: #4 ETT size (mm): 7.5 Placement verified by: capnometry Cormack-Lehane Classification: grade I - full view of glottis Number of attempts at approach: 1 Failed airway: no Unrecognized esophageal intubation: no Airway not difficult SIGNATURE: Kenzie More APRN.CRNA PATIENT NAME: Johnny Devine DATE: October 29, 2023 TIME: 10:17 AM CSN: [id number] [facility] 10-29-2023 Note HNO ID: [id number] Author: ANA LUISA FARR MD Service: General [...] Farr MD Acute Care Surgery Resident PAGER [phone] INTERVAL EVENTS / PERTINENT REVIEW OF SYSTEMS: [...] Phos Recent Labs 10/29/23 0258 10/29/23 0252 10/28/23211810/28/23 1703 WBC -- 14.09* -- 14.46* HB [...] Anesthesia Type: * EXPLORATORY LAPAROTOMY - General [facility] 10-28-2023 History of Past i llness Narrative Problem Noted Date Diagnosed Date Resolved Date SBO (small bowel obstruction) 10/28/2023 10/31/2023 documented as of this encounter (statuses as of 11/12/2023) [facility]03-10-2024 History of Past illness Narrative* Problem Noted Date Diagnosed Date Resolved Date SBO (small bowel obstruction) 10/28/2023 10/31/2023 documented as of this encounter (statuses as of 11/29/2023) [facility]-10[facility]20[facility] History of Past illness Narrative* Problem Noted Date Diagnosed Date Resolved Date SBO (small bowel obstruction) 10/28/2023 10/31/2023 documented as of this encounter (statuses as of 12/04/2023) [facility]03-10-2024 History of Past illness Narrative* Problem Noted Date Diagnosed Date Resolved Date SBO (small bowel obstruction) 10/28/2023 10/31/2023 documented as of this encounter (statuses as of 12/06/2023) [facility]11-27-2023 Hospital Discharge instructions* Discharge Instructions* [...] be sent through Care Everywhere. * Bradycardia (Puerto Rican) documented in this [id number] Emergency department Note* Leila Cifuentes RN - 07/16/2023 8:01 AM EST Permission treat given from Cate legal guardian [id number] Emergency department Note* Leila Cifuentes RN - 07/16/2023 8:01 AM EST Permission treat given from Cate legal guardian documented in this [id number] Evaluation + Plan note Diagnostic Tests Pending * [place] Level 07/04/23 [facility]11-07-2023 Telephone encounter Note* Telephone Encounter - Shanna Sauceda RN - 06/26/2023 11:14 AM EST Informed Consent for dental surgery & Anesthesia consent obtained and scanned into [email or web address]. Scheduled for surgery 07/16/2023. [id number] Miscellaneous Notes* Telephone Encounter - Shanna Sauceda RN - 06/26/2023 11:14 AM EST Informed Consent for dental surgery & Anesthesia consent obtained and scanned into [email or web address]. Scheduled for surgery 07/16/2023. documented in this [id number] Evaluation note* PSE Appt H&P - Lacey Wilson MD - 06/22/2023 3:10 PM EDT Presurgical Evaluation (Pre-Admission Testing) Consultation Johnny Devine, [id number] 32 year old Male 06/22/2023 Consult placed [...] DENTAL RESTORATIONS; Surgeon: Harpreet Mccurdy DDS; Location: [facility] Center; Service: Dental ANESTHESIA [...] - referring and communicating with other health college and career counselor (when not separately reported) - documenting clinical information in the electronic or other health record - independently interpreting results (not separately reported) and communicating results to the patient/family/caregiver - care coordination (not separately reported). Interviewer signature: Lacey Wilson MD 3:10 PM 06/22/2023 [id number] Miscellaneous Notes* PSE Appt H&P - Lacey Wilson MD - 06/22/2023 3:10 PM EDT Presurgical Evaluation (Pre-Admission Testing) Consultation Johnny Devine, [id number] 32 year old Male 06/22/2023 Consult placed [...] DENTAL RESTORATIONS; Surgeon: Harpreet Mccurdy DDS; Location: [facility] Surgery [place]; Service: Dental ANESTHESIA REVIEW OF SYSTEMS: Eyes/ENT: [...] - referring and communicating with other health college and career counselor (when not separately reported) - documenting clinical information in the electronic or other health record - independently interpreting results (not separately reported) and communicating results to the patient/family/caregiver - care coordination (not separately reported). Interviewer signature: Lacey Wilson MD 3:10 PM 06/22/2023 documented in this [id number] Miscellaneous Notes* Telephone Encounter - Lory Dan [...] leave a message. * Telephone Encounter - [employer] Servicesner [employer] Sec - 05/17/2022 3:31 PM EDT Pt's aunt returning a call to Dr. Morales to discuss eye care for Johnny. Please try to reach her again at [phone] (Cate Tin) documented in this encounter[facility] Miscellaneous Notes* Telephone Encounter - [employer] Sec - 05/08/2022 9:01 AM EDT Nurse from [facility] where he resides called for [facility] for his file. Attn: Melanie Pickard [phone]. Surgery schedulers name and # was provided. documented in this encounterL[facility]09-16-2022 Miscellaneous Notes* Telephone Encounter - Grupo Morales [...] ADLs currently. He currently lives in a custodial and has a significant history of self-injurious behaviors including banging his head on things and punching his eyes. She believes cataract tarun result of trauma, and I agree with her. These behaviors still happen on a weekly basis, and whilethere's 12/03 supervision at the custodial, he has a lot of private time [...] week. 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 Other and combined forms of senile cataract [facility]* Diagnosis Caries- Primary Unspecified [...] aftercare following surgery [facility] Diagnosis Phimosis- Primary Redundant prepuce and phimosis documented [facility] this [facility]* Diagnosis Screening for genitourinary condition Screening for other and unspecified genitourinary condition [facility]* Diagnosis Caries- Primary Unspecified dental caries Pre-op testing- Primary Preoperative examination, unspecified Body mass index (BMI) 31.0-31.9, adult Caries Unspecified dental caries [facility] Diagnosis Sigmoid volvulus (HCC)- Primary Volvulus [facility] Diagnosis Caries- Primary Unspecified dental caries Pre-op testing- Primary Preoperative examination, unspecified Body mass index (BMI) 31.0-31.9, adult Caries Unspecified dental caries [facility]* Diagnosis Caries- Primary Unspecified dental caries [facility]* Diagnosis Alteration of awareness- Primary [facility] Diagnosis Caries- Primary Unspecified dental caries documented [facility] this [facility] Work Phone: Evaluation note* Diagnosis Alteration of awareness- Primary [facility]* Diagnosis Encounter for dental examination- Primary Dental examination documented in this encounter [facility] Work Phone: Hospital course Narrative No data available for this section [facility] No data available for this section [facility] No data available for this section [facility] Summary Purpose Family History No Family History [...] mcfadden Referred To Contact Anesthesiology Diagnoses Caries Tio-Harpreet England, DDS [address] [place] [id number] [facility] PRE SURGICAL EVAL [address] [place] [address] Referral ID Status Reason Start Date Expiration Date V isits Requested Visits Authorized [id number] Pending Review 05/25/2023 05/25/2024 1 1 Scheduling Instructions Your surgical team will reach out to you to schedule a preadmission testing appointment. Question Answer Reason for consult? Recommended PSE Risk Score Specialty Diagnoses / Procedures Referred By Johan mcfadden Referred To Contact Radiology Diagnoses Pre-op exam Procedures XR CHEST PA+LAT 2 VIEWS Franc Beyer MD [address] [place] [address] [facility] DIAGNOSTIC RADIOLOGY [address] [phone] Referral ID Status Reason Start Date Expiration Date Visits Re quested Visits Authorized [id number] Closed 06/22/2023 06/21/2024 1 1 Specialty Diagnoses / Procedures Referred By Contac t Referred To Contact Cardiology Diagnoses Bradycardia History of autism Nonverbal Moderate intellectual disability Yobany Smith PA-C [address] [place] [address] S CARDIOLOGY [facility] [address] [place] [address] Referral ID Status Reason Start Date Expiration Date V isits Requested Visits Authorized [id number] Pending Review 07/16/2023 07/16/2024 3 3 Scheduling Instructions Please call the [facility] at [phone] to schedule an appointment if one was not made for you today. Question Answer What is the primary reason for consult? Abnormal EKG [13] - nonverbal patient, asymptomatic bradycardia on lopressor At what location would you like the patient to be seen? [address]) Specialty Diagnoses / Procedures Referred By Contac t Referred To Contact Colon and Rectal Surgery Diagnoses Sigmoid volvulus (HCC) Procedures CONSULT TO COLO-RECTAL SURGERY OFFICE/OUTPATIENT [facility] 60 MINUTES Victoria Sanchez APRN.[facility] [address] [id number] Juventino Fairbanks MD [address] [place] [address] Referral ID Status Reason Start Date Expiration Date Visits Requested Visits Authorized [id number] Authorized PCP Requested Referral 12/20/2023 12/19/2024 1 1 Specialty Diagnoses / Procedures Referred By Contac t Referred To Contact Anesthesiology Diagnoses Caries Harpreet Mccurdy DDS [address] [phone] [facility] PRE ADMISSION TESTING [address] [place] [address] Referral ID Status Reason Start Date Expiration Date V isits Requested Visits Authorized [id number] Authorized 10/10/2023 10/10/2024 1 1 Scheduling Instructions [...] PA+LAT 2 VIEWS Franc Beyer MD [address] [place] [address] [facility] DIAGNOSTIC RADIOLOGY [address] [place] [address] Referral ID Status Reason Start Date Expiration Date Visits Re quested Visits Authorized [id number] Closed 06/22/2023 06/21/2024 1 1 Reason Onset Date Comments Pre-surgical Evaluation 06/26/2023 Informed Consent for dental surgery & Anesthesia consent obtained Reason Comments bradycardia Low HR (33) Specialty Diagnoses / Procedures Referred By Contmigdalia t Referred To Contact Ambulatory Surgery Diagnoses Caries Caries [[id number]] Procedures UNLISTED PROCEDURE, DENTOALVEOLAR STRUCTURES ANESTHESIA, INTRAORAL PROC, W/BX; NOS DENTAL RESTORATIONS Harpreet Mccurdy, DDS [address] [place] [address] [facility] [address] [place] [address] Phone: [phone] Referral ID Status Reason Start Date Expiration Date Visits Re quested Visits Authorized [id number] 3 3 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 PAT completed - consent request sent to main - see future encounter for results. PAT RN spoke to patrick Navarro, [place] address, and 0900 arrival time Reason Onset Date Comments Pre-surgical Evaluation 12/25/2023 Anesthes ia Attestaion for dental surgery scanned in social media campaign managermanager loan Diagnoses / Procedures Referred By Contac t Referred To Contact Ambulatory Surgery Diagnoses Caries Caries [[id number]] Procedures UNLISTED PROCEDURE, DENTOALVEOLAR STRUCTURES ANESTHESIA, INTRAORAL PROC, W/BX; NOS DENTAL RESTORATIONS Kassidy Mari, DMD [address] [place] [id number] [facility] [address] [place] [phone] Phone: [phone] Referral ID Status Reason Start Date Expiration Date Visits Re quested Visits Authorized [id number] 3 3 Reason Comments Seizures Reason Onset Date Comments Medical Record Review 12/16/2024 Reason Comments New Patient Care Teams (unrecognized sec tion and content) Implement Mechanic Relationship Specialty Start Date End Date Aileen Corcoran DDS [address] [place], [place] [phone] Resident Dentistry 08/20/20 Implement Mechanic Relationship Specialty Start Date End Date Aileen Corcoran DDS [address] [place] [address] Resident Dentistry 08/20/20 Implement Mechanic Relationship Specialty Start Date End Date Aileen Corcoran DDS [address] [place], [place] [phone] Resident Dentistry 08/20/20 Implement Mechanic Relationship Specialty Start Date End Date Aileen Corcoran DDS [address] [place], [place] [phone] Resident Dentistry 08/20/20 Implement Mechanic Relationship Specialty Start Date End Date Aileen Corcoran DDS [address] [place] [address] Resident Dentistry 08/20/20 Implement Mechanic Relationship Specialty Start Date End Date Aileen Corcoran DDS [address] [place] [address] Resident Dentistry 08/20/20 Implement Mechanic Relationship Specialty Start Date End Date Aileen Corcoran DDS [address] [place] [address] Resident Dentistry 08/20/20 Implement Mechanic Relationship Specialty Start Date End Date RosemarieAileen aquino DDS [address] [place] [address] Resident Dentistry 08/20/20 Implement Mechanic Relationship Specialty Start Date End Date Aileen Corcoran DDS [address] [place] [address] Resident Dentistry 08/20/20 Implement Mechanic Relationship Specialty Start Date End Date Aileen Corcoran DDS [address] [place] [address] Resident Dentistry 08/20/20 Implement Mechanic Relationship Specialty Start Date End Date Aileen Corcoran DDS [address] [place] [address] Resident Dentistry 08/20/20 Implement Mechanic Relationship Specialty Start Date End Date RosemarieAileen aquino DDS [address] [place] [address] Resident Dentistry 08/20/20 Implement Mechanic Relationship Specialty Start Date End Date RosemarieAileen aquino DDS [address] [place] [address] Resident Dentistry 08/20/20 Ling Coffman APRN-MATHEMATICS TECHNICIAN [address] [place] [id number] IRRIGATION ENGINEER Anesthesiology 01/19/24 Implement Mechanic Relationship Specialty Start Date End Date Aileen Cocroran DDS [address] [place] [address] Resident Dentistry 08/20/20 Ling CoffmanSAMEER [address] [place] [id number] IRRIGATION ENGINEER Anesthesiology 01/19/24 Source Comments (unrecognize d section and content) In the event this informatio n is protected by the Federal Confidentiality of Alcohol and Drug Abuse Patient Records regulations: The Federal rules restrict any use of the information to criminally investigate or prosecute any alcohol or drug abuse patient.[facility] the event this information is protected by the Federal Confidentiality of Alcohol and Drug Abuse Patient Records regulations: The Federal rules restrict any use of the information to criminally investigate or prosecute any alcohol or drug abuse patient.[facility] the event this information is protected by the Federal Confidentiality of Alcohol and Drug Abuse Patient Records regulations: The Federal rules restrict any use of the information to criminally investigate or prosecute any alcohol or drug abuse patient.[facility] the event this information is protected by the Federal Confidentiality of Alcohol and Drug Abuse Patient Records regulations: The Federal rules restrict any use of the information to criminally investigate or prosecute any alcohol or drug abuse patient.[facility] the event this information is protected by the Federal Confidentiality of Alcohol and Drug Abuse Patient Records regulations: The Federal rules restrict any use of the information to criminally investigate or prosecute any alcohol or drug abuse patient.[facility] the event this information is protected by the Federal Confidentiality of Alcohol and Drug Abuse Patient Records regulations: The Federal rules restrict any use of the information to criminally investigate or prosecute any alcohol or drug abuse patient.[facility] Center[facility] the event this information is protected by the Federal Confidentiality of Alcohol and Drug Abuse Patient Records regulations: The Federal rules restrict any use of the information to criminally investigate or prosecute any alcohol or drug abuse patient.[facility] the event this information is protected by the Federal Confidentiality of Alcohol and Drug Abuse Patient Records regulations: The Federal rules restrict any use of the information to criminally investigate or prosecute any alcohol or drug abuse patient.[facility] Center[facility] the event this information is protected by the Federal Confidentiality of Alcohol and Drug Abuse Patient Records regulations: The Federal rules restrict any use of the information to criminally investigate or prosecute any alcohol or drug abuse patient.[facility] Center[facility] the event this information is protected by the Federal Confidentiality of Alcohol and Drug Abuse Patient Records regulations: The Federal rules restrict any use of the information to criminally investigate or prosecute any alcohol or drug abuse patient.[facility] (unrecognized sect ion and content) No Status Records FoundNo Status Records FoundNo Status Records FoundNo Status Records FoundNo Status Records FoundNo Status Records Found INFORMATION SOURCE (unrecogn ized section and content) DATE CREATED AUTHOR [facility]/2023 [facility] DATE CREATED AUTHOR AUTHOR'S ORGANIZ ATION 01/13/2024 [facility] DATE CREATED AUTHOR AUTHOR'S ORGANIZ ATION 02/15/2024 [facility] DATE CREATED AUTHOR AUTHOR'S ORGANIZ ATION 02/22/2024 Benson [facility] DATE CREATED AUTHOR AUTHOR'S ORGANIZ ATION 12/04/2024 [facility] DATE CREATED AUTHOR AUTHOR'S ORGANIZ ATION 12/17/2024 [employer] Scheduled Active and Recently Administ ered [...] socket sites after extraction) lidocaine-epinephrine (XYLOCAINE) 2 %-1:637907 injection (CANCELED) PRN, Starting on Sun12/28/23 at [...] BE BASED ON THE PRIMARY CLINICAL RECORDS. [employer] provides no warranty or guarantee of the accuracy or completeness of information in this document.
[2025-02-27 19:50] VITALS: BP 102/66; PULSE 59; TEMP 36.6; O2SAT 100
--- NOTE | 2025-02-27 20:12 | ED.GENADUL1 ---
HPI HPI - General Adult General Chief complaint: Wound/Laceration Stated complaint: HEAD INJURY Time Seen by Provider: 02/27/25 19:50 Source: caregiver Mode of arrival: walk-in History of Present Illness HPI narrative: The patient is a 34-year-old male who presents with his staff worker from adult foster long-term. The patient has a history of cognitive delay, small bowel obstruction, upper respiratory infections. The patient had some behavioral issues today. The patient threw himself on the ground and then threw his head back and hit his head on the ground. There was no loss of consciousness but the patient was noted to have a small laceration of the back of his head. He was evaluated by the nurse who suggested that the patient come to the emergency department to be evaluated. Patient himself is a poor historian. Patient does not really answer questions in terms of quality or characteristics of pain. Patient however had no loss of consciousness and is seems to be at his baseline cognition per the staff worker who is very familiar with him. Patient does not exhibit any signs of localizing weakness. Patient's speech is his normal speech. Related Data Home Medications ?Medication ?Instructions ?Recorded ?Confirmed acetaminophen 325 mg tablet 650 mg PO Q4H PRN fever or pain 08/23/23 10/27/23 (Tactinal) atorvastatin 10 mg tablet 10 mg PO DAILY 08/23/23 10/27/23 benzonatate 100 mg capsule 100 mg PO Q8H PRN cough 08/23/23 10/27/23 bisacodyl 10 mg rectal suppository 10 mg DE Q5D PRN constipation 08/23/23 10/27/23 calcium 500 mg (as 1 tab PO BID 08/23/23 10/27/23 carbonate)-vitamin D3 5 mcg (200 unit) tablet (Oyster Shell Calcium-Vitamin D3) clonidine HCl 0.2 mg tablet 0.2 mg PO TID 08/23/23 10/27/23 denosumab 60 mg/mL subcutaneous 60 mg subcut .[id number] 08/23/23 10/27/23 syringe (Prolia) divalproex 125 mg capsule,delayed 500 mg PO BID 08/23/23 10/27/23 release sprinkle famotidine 20 mg tablet 20 mg PO BID 08/23/23 10/27/23 fluticasone propionate 50 2 spray intranasal .every morning 08/23/23 10/27/23 mcg/actuation nasal spray,suspension guaifenesin 400 mg tablet (Chest 400 mg PO .daily morning 08/23/23 10/27/23 Congestion Relief) levothyroxine 112 mcg tablet 112 mcg PO DAILY 08/23/23 10/27/23 linaclotide 290 mcg capsule 290 mcg PO DAILY 08/23/23 10/27/23 (Linzess) lithium carbonate 300 mg capsule 300 mg PO BID 08/23/23 10/27/23 lorazepam 2 mg tablet 2 mg PO TID-QID 08/23/23 10/27/23 naltrexone 50 mg tablet 100 mg PO BID 08/23/23 10/27/23 polyethylene glycol 3350 17 17 g PO DAILY 08/23/23 10/27/23 gram/dose oral powder quetiapine 200 mg tablet 200 mg PO TID 08/23/23 10/27/23 risperidone 3 mg tablet 3 mg PO BID 08/23/23 10/27/23 sertraline 100 mg tablet 100 mg PO DAILY 08/23/23 10/27/23 sertraline 50 mg tablet 50 mg PO DAILY 08/23/23 10/27/23 camphor-eucalyptus oil-menthol 4.8 1 applic topical TID 10/27/23 10/27/23 %-1.2 %-2.6 % topical ointment (Chest Rub) guaifenesin 400 mg tablet (Chest 400 mg PO BID PRN congestion 10/27/23 10/27/23 Congestion Relief) loratadine 10 mg tablet 10 mg PO Q24H 10/27/23 10/28/23 montelukast 10 mg tablet 10 mg PO BEDTIME 10/27/23 10/28/23 mupirocin 2 % topical ointment 1 applic topical BID NASALLY 10/27/23 10/28/23 ondansetron 4 mg disintegrating 4 mg PO Q12H PRN nausea and 10/27/23 10/27/23 tablet vomiting sennosides 8.6 mg capsule (senna) 8.6 mg PO BID 10/27/23 10/27/23 sodium chloride 0.65 % nasal spray 2 spray intranasal TID 10/27/23 10/28/23 aerosol (Saline Nasal) sodium chloride 0.9 % for 2.5 ml inhalation Q4H PRN SOB 10/27/23 10/28/23 nebulization Allergies Allergy/AdvReac Type Severity Reaction Status Date / Time clarithromycin (From Biaxin) AdvReac Severe Abdominal Verified 02/27/25 20:03 Pain biaxin AdvReac Abdominal Uncoded 02/27/25 20:03 Pain Review of Systems ROS Narrative 10 Systems were reviewed, and unless noted in the HPI, all other systems are reviewed, unremarkable, or noncontributory. PFSH PFSH Medical History 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 - Other developmental disorders of scholastic skills (ICD-10) Osteoporosis ?M81.0 - Age-related osteoporosis without current pathological fracture (ICD-10) Cataract ?H26.9 - Unspecified cataract (ICD-10) ADHD ?F90.9 - Attention-deficit hyperactivity disorder, unspecified type (ICD-10) Bipolar 1 disorder ?F31.9 - Bipolar disorder, unspecified (ICD-10) High cholesterol ?E78.00 - Pure hypercholesterolemia, unspecified (ICD-10) Hypothyroid ?E03.9 - Hypothyroidism, unspecified (ICD-10) OCD (obsessive compulsive disorder) ?F42.9 - Obsessive-compulsive disorder, unspecified (ICD-10) Autism ?F84.0 - Autistic disorder (ICD-10) Social History Smoking status: Never smoker Exam Narrative Exam Narrative: Prior to examining the patient, I have washed with hospital approved and provided Antiseptic Hand E Business Manager and have also applied gloves.? Prior to touching the patient, I asked for consent to examine the patient.? General: Alert, well nourished, mild distress. Two 1.5 cm lacerations to the occiput of the head Eye: PERRL, EOMI, normal conjunctiva. 4 mm and reactive HENT: Normocephalic, normal hearing, moist oral mucosa, no scleral icterus, no sinus tenderness. No hemotympanums. No septal hematoma. Neck: Supple, non-tender, no lymphadenopathy. Lungs: Clear to auscultation and percussion, non-labored respiration. Heart: Normal rate, regular rhythm, no murmur, gallop or edema. Abdomen: Soft, non-tender, non-distended, normal bowel sounds, no masses. Musculoskeletal: Normal range of motion and strength, no tenderness or swelling. Skin: Skin is warm, dry and pink, no rashes or lesions. Two 1.5 cm lacerations to the occiput of the head Neurologic: Awake, alert, CN II-XII intact. Psychiatric: Flat affect Following the conclusion of the examination, I have washed my hands thoroughly after removing examination gloves. Constitutional Vital Signs, click to edit/add: Last Vital Signs Temp 97.9 F 02/27/25 19:50 Pulse 59 L 02/27/25 19:50 Resp 20 02/27/25 19:50 BP 102/66 02/27/25 19:50 Pulse Ox 100 02/27/25 19:50 O2 Del Method Room Air 02/27/25 19:50 Course Course Hospital Course: Patient is going to receive a CT scan of the brain since he has cognitive disorder it is difficult to ascertain any head injury. Reevaluation(s) Reevaluation #1: Patient appears nontoxic and in no acute distress Time: 21:11 Vital Signs Vital signs: Vital Signs Temperature 97.9 F 02/27/25 19:50 Pulse Rate 59 L 02/27/25 19:50 Respiratory Rate 20 02/27/25 19:50 Blood Pressure 102/66 02/27/25 19:50 Pulse Oximetry 100 02/27/25 19:50 Oxygen Delivery Method Room Air 02/27/25 19:50 Temperature 97.9 F 02/27/25 19:50 Pulse Rate 59 L 02/27/25 19:50 Respiratory Rate 20 02/27/25 19:50 Blood Pressure 102/66 02/27/25 19:50 Pulse Oximetry 100 02/27/25 19:50 Oxygen Delivery Method Room Air 02/27/25 19:50 Medical Decision Making MDM Narrative Medical decision making narrative: In summary the patient has a obvious laceration that necessitates repair. Due to the patient's cognitive delay we get a CT scan of the brain. I personally looked at the CT and do not appreciate any type of bleeding or abnormality. Patient had his lacerations repaired with chata. The chata can be removed in 1 week. Patient should return if his symptoms worsen or change. Differential Diagnosis Differential Diagnosis: Acute head injury, intracranial hemorrhage, concussion, laceration Medical Records Medical records reviewed: Yes I reviewed the patient's medical records Imaging Data CT scan - head: Attestation: I have reviewed the pertinent imaging results. Radiologist's impression: ITS Impressions Head CT 02/27/25 20:14 IMPRESSION: NO ACUTE INTRACRANIAL ABNORMALITY. Impression dictated by: Khai Maddox M.D. 02/27/2025 8:55 PM Dictation Location: [email or web address] Electronically authenticated by: [id number] Y Date: 02/27/2025 20:55 Discharge Plan Discharge Chief Complaint: Wound/Laceration Clinical Impression: Laceration, Head injury due to trauma Patient Disposition: Home, Self-Care Time of Disposition Decision: 21:06 Condition: Good Mode of Transportation: Private Vehicle Prescriptions / Home Meds: No Action atorvastatin 10 mg tablet 10 mg PO DAILY clonidine HCl 0.2 mg tablet 0.2 mg PO TID divalproex 125 mg capsule, delayed rel sprinkle 500 mg PO BID Patient Comments: takes 4 caps bid famotidine 20 mg tablet 20 mg PO BID fluticasone propionate 50 mcg/actuation spray,suspension 2 spray INTRANASAL .every morning guaifenesin [Chest Congestion Relief] 400 mg tablet 400 mg PO .daily morning levothyroxine 112 mcg tablet 112 mcg PO DAILY risperidone 3 mg tablet 3 mg PO BID sertraline 50 mg tablet 50 mg PO DAILY Patient Comments: takes with 100mg tab sertraline 100 mg tablet 100 mg PO DAILY Patient Comments: take with a 50mg tab Linzess 290 mcg capsule 290 mcg PO DAILY lithium carbonate 300 mg capsule 300 mg PO BID naltrexone 50 mg tablet 100 mg PO BID lorazepam 2 mg tablet 2 mg PO TID-QID calcium carbonate-vitamin D3 [Oyster Shell Calcium-Vit D3] 500 mg-5 mcg (200 unit) tablet 1 tab PO BID polyethylene glycol 3350 17 gram/dose powder 17 g PO DAILY quetiapine 200 mg tablet 200 mg PO TID Prolia 60 mg/mL syringe 60 mg SUBCUT .[id number] benzonatate 100 mg capsule 100 mg PO Q8H PRN (Reason: cough) bisacodyl 10 mg suppository 10 mg DE Q5D PRN (Reason: constipation) acetaminophen [Tactinal] 325 mg tablet 650 mg PO Q4H PRN (Reason: fever or pain) montelukast 10 mg tablet 10 mg PO BEDTIME mupirocin 2 % ointment 1 applic TOPICAL BID sodium chloride 0.9 % solution for nebulization 2.5 ml INHALATION Q4H PRN (Reason: SOB) loratadine 10 mg tablet 10 mg PO Q24H Saline Nasal 0.65 % aerosol,spray 2 spray INTRANASAL TID senna 8.6 mg capsule 8.6 mg PO BID guaifenesin [Chest Congestion Relief] 400 mg tablet 400 mg PO BID PRN (Reason: congestion) ondansetron 4 mg tablet,disintegrating 4 mg PO Q12H PRN (Reason: nausea and vomiting) Chest Rub 4.8-1.2-2.6 % ointment 1 applic topical TID Print Language: Serbian Instructions: Head Injury (ED), Staple Care (ED) Additional Instructions: [place] out in one week please. Referrals: AMINA CRANE DO [Primary Care Provider, [facility]] - 1 week Discharge Date/Time: 02/27/25 21:40 Procedures ED Procedure Instructions Procedures Procedures: Laceration repair: Patient had 2 a 1.5 cm lacerations on the occiput of the head. The patient was anesthetized with 4 mL of 1% lidocaine with epinephrine. The patient was then cleaned with copious amounts of Hibiclens and 0.9% sterile saline. Patient then had the tissues approximated and 8 chata were used to approximate the 2 lacerations. We used 4 chata per laceration. It was somewhat complex because of the angulation of the tissue. In addition, it was stellate in appearance. Patient tolerated the procedure well.
--- NOTE | 2025-02-27 20:14 | CT_ITS ---
The [address] [address] Patient Name: JOHNNY DEVINE MRN: [id number] date: 1990 Sex: M Assigned Patient Location: ED.MAIN Current Patient Location: ED.MAIN Accession/Order Number: [id number] Exam Date: 02/27/2025 20:51 Report Date: 02/27/2025 20:55 At the request of: VITA TEE DO Procedure: CT head/brain wo con CT BRAIN WITHOUT CONTRAST: CLINICAL HISTORY: Trauma to the head COMPARISON: None TECHNIQUE: Contiguous axial unenhanced images were obtained through the brain. This CT exam was performed using one or more following dose reduction techniques: Automated exposure control, adjustment of the mA and/or kV according to patient size, or use of iterative reconstruction technique. FINDINGS: There is no evidence of midline shift, intra or extra-axial fluid collection, hemorrhage or CT evidence acute large vascular stroke. Visualized intraorbital contents appear unremarkable. Visualized paranasal sinuses are clear. Suspect remote soft tissue injury along the forehead, correlate with exam findings. No calvarial fracture. CT/CT head/brain wo con IMPRESSION: NO ACUTE INTRACRANIAL ABNORMALITY. Impression dictated by: Khai Maddox M.D. 02/27/2025 8:55 PM Dictation Location: [place] [address] Electronically authenticated by: [id number] Y Date: 02/27/2025 20:55
[2025-02-27] MEDS: LIDOCAINE HCL 2%-EPINEPHRINE 1:200,000 20 ML MDV 10 ML INJ (20:40)
== END 2025-02-27 21:40 | disposition home or self-care (01) ==
PROVIDERS: Emergency Provider Emergency Medicine; PCP Family Medicine
DX: S09.8XXA Other specified injuries of head, initial encounter (principal); S09.90XA Unspecified injury of head, initial encounter; S01.01XA Laceration without foreign body of scalp, initial encounter; W18.30XA Fall on same level, unspecified, initial encounter; F31.9 Bipolar disorder, unspecified; F42.9 Obsessive-compulsive disorder, unspecified
CPT/HCPCS: 70450; 99284

== ENCOUNTER 2025-04-07 07:14 | Outpatient (OUT) | payer MEDICARE, MEDICAID, SELFPAY ==
--- OUTSIDE RECORDS SUMMARY | 2025-04-07 07:16 | XMS_ITS | Clinical Summary ---
[facility] Address [address], [address] [place] [address] Care Team Providers Care Seed Sorter Name Role Phone Aileen Corcoran DDS Primary Care Provider Allergies Active Allergy Reactions [...] Td or Tdap) 07/10/2029 07/10/2019 HPV vaccine (No Doses Required) Completed Hepatitis A vaccine Aged Out No longe [...] topic Insurance MEDICARE [place]ICAID [place] Care Teams Seed Sorter Relationship Specialty Start Date End Date Aileen Corcoran DDS [address] [place] [address] PCP - General Dentistry 09/21/23
--- OUTSIDE RECORDS SUMMARY | 2025-04-07 07:16 | XMS_ITS | Clinical Summary ---
Author Organization [facility] Address [address] [place] [address] Phone Care Team Providers Care Health Safety Instructor Name Role Phone Unavailable Primary Care Provider [...] 1 capsule by mouth daily. 5 Active [place] 300 MG capsule TAKE ONE CAPSULE BY [...] Description 02/24/2025 10:00 AM EDT Office Visit [facility] [address] [place] [address], [address] [place] [id number] Kendra Jaramillo DDS Encounter for dental examination [...] of 3 - 19+ 3-dose series) 2011 HPV VACCINE (1 - 3-dose SCDM series) 2019 COVID-19 VACCINE ( - season) 2024 INFLUENZA VACCINE (#1) 2025 4, 06/06/2023, 06/07/2022, Additional history exists TETANUS 07/10/2029 07/10/2019 TDAP (ADULT) Completed 07/10/2019 PNEUMOCOCCAL VACCINE SERIES Aged Out No longer eligible based on patient's age to complete this topic Procedures Procedure Name Priority Date/Time Associated Diagnosis Comments PANORAMIC RADIOGRAPHIC IMAGE Routine 02/24/2025 10:00 AM EDT Encounter for dental examination LIMITED ORAL EVALUATION - PROBLEM FOCUSED Routine 02/24/2025 10:00 AM EDT Encounter for dental examination from Last 3 Months Insurance [place] DENTAL
--- OUTSIDE RECORDS SUMMARY | 2025-04-07 07:16 | XMS_ITS | Clinical Summary ---
Author Organization [facility] Address [address] [place] [address] Care Team Providers Care Lapel Stitcher Name Role Phone Unavailable Primary Care Provider [...] drink = 0.6 oz pur e alcohol) [facility] Utilities Answer Date Recorded In the [...] place to sleep or slept in a detention (including now)? Patient unable to answer 10/29/2023 [...] series) 2011 Medicare Annual Wellness Visit 02/17/2013 HPV Vaccine (1 - 3-dose SCDM series) 2019 Influenza Vaccine (#1) 2025 , 06/07/2022, 06/15/2021, Additional history exists DTaP,Tdap,Td Vaccine (2 - Td or Tdap) 07/10/2029 07/10/[address] [place] [address] MEDICARE Member Subscriber Plan / Payer (Ef fective 2013-Present) Name:Benjamin Cohen Member ID:[id number] Relation to Subscriber:Self Name:Benjamin Cohen Subscriber ID:[id number] Payer ID:Not on file Group ID:Not on file Type:Medicare Address: [place] [id number] MEDICAID [place]
--- OUTSIDE RECORDS SUMMARY | 2025-04-07 07:16 | XMS_ITS | Clinical Summary ---
Author Organization [facility] Address [address] [place] [address] Care Team Providers Care Physical Scientist Name Role Phone Unavailable Primary Care [...] Date Diagnosed Date Alteration of awareness 01/29/2024 Social History Tobacco Use Types Packs/Day Years [...]
--- OUTSIDE RECORDS SUMMARY | 2025-04-07 07:18 | XMS_ITS | CCD ---
Author Organization [facility] CliniSyny Care Team Providers Care Volumetric Weigher Name Role Phone Jewell MATA, Gallagher Unavailable [phone] Unavailable Primary Care Provider Unavailabl e Unavailable [...] DR HERMAN Pollack Attending Unavailable CRANE, DR HERMNA Pollack Consulting Unavailable CRANE, DR HERMAN Pollack [...] Pollack Consulting Unavailable Jewell MATA Gallagher Unavailable HERMAN CRANE Primary Care Physician [...] Attending Unavailable CRANE, HERMAN Admitting Unavailable Markiv ENTERPRISE SALES EXECUTIVE-SUBWAY CONDUCTOR, Ling Unavailable Unavailable Primary Care Provider Unavailabl [...] Clarithromycin Drug Allergy 05-04-20 Other: See Comments [facility] (20 sources) Clarithromycin; Translations: [CLARITHROMYCIN] Propensity to adverse reactions to drug 06-12-20 18 Other, Nausea and Vomiting [facility] Work Phone: (9 sources) Clarithromycin Drug Allergy 05-04-20 Other: See Comments [facility] (1 source) Clarithromycin Drug Allergy [facility] Repository Medications Current Medications Medication Drug [...] take 1 capsule by mouth twice daily Jones 300 MG capsule TAKE ONE CAPSULE BY [...] mouth Active take 1 capsule by mo [facility] once daily at bedtime loratadine 10 [...] 4 mg/0.1 mL nasal liquid Use 1 Reynolds in one nostril (alternate sides) as needed [...] Start: 04-19-2022 take 2 tablets by mo [facility] twice daily naltrexone (TREXAN) 50 mg tablet TAKE TWO TABLETS BY MOUTH TWICE DAILY REVIA 0 04/19/2022 Active Start: 04-19-2022 [facility] daily naltrexone (TREXAN) 50 mg tablet [...] nausea or vomiting Active polyethylene glycol 3350 03393 mg powder for oral solution (20 sources) Osmotic Laxative Start: Polyethylene Glycol 3350 (PEG 3350) 17 GM/SCOOP Powder 02/23/2025 Active Start: 01-24-2021 End: 12-28-2023 polyethylene glycol 3350 (ME RALAX, GLYCOLAX) 17 gram/dose powder Take 17 [...] 08-25-19 Chronic Other aftercare (5 sources) Other snf (current) drug therapy; Translations: [OTH CUSTODIAL CURRENT [...] Remisol Chem Physician Orderon 02-13-2024 Physician Order [id number]# 1.00TIFF Normal [facility] Valproic Acidon 02-13-2024 Valpro Acid Lvl 98 microgram/mL Normal 50-[address] [facility] Comment on above: Performed By: #### 2 [id number] #### [facility] [address] [place] [address] Lara 01-11-2024 CNPN Telephone (CORSMN) JOHNNY DEVINE ([id number]) 1990 M Date Time Provider Department 01/11/24 CRIS DINH During your visit today, we recorded the following information about you: Cris Dinh, RN 01/11/2024 1:50 PM Signed Jessica from [facility] [phone] is caller. 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 Normal [facility] Anesthesia Preprocedure Eval uationon 12-28-2023 Host/Hostess Authentication Interface Message Text ASA: 3 NPO [...] and physical examination. Attestation: MHPATFORM Normal The [facility] Anesthesia Transfer Of Careo n 12-28-2023 Host/Hostess Authentication Interface Message Text Patient taken to [...] DENTAL RESTORATIONS; Surgeon: Harpreet Mccurdy DDS; Location: [facility] Surgery [place]; Service: Dental Allergies: Biaxin [clarithromycin] Basic Operating Room Facts: Surgeon(s): Mari Traore DMD Anesthesiologist: Linda Saldivar MD BACK FILLER OPERATOR: Selena Camacho APRN-CRNA DENTAL RESTORATIONS (Bilateral: [...] [phone] Comment: The [place] Diabetes Association (ADA) provides guidance for cutoff [...] Standards of Medical Care in Diabetes 2016, [place] Diabetes Association. Diabetes Care. 2016.39(Suppl 1). 8 0.70 8.2 11/06/23 0943 [phone] Comment: The [place] Diabetes Association (ADA) provides guidance for cutoff [...] Standards of Medical Care in Diabetes 2016, [place] Diabetes Association. Diabetes Care. 2016.39(Suppl 1). 6 0.69 8 (more content not included)... Normal [facility] Blood Attestationon 12-28-19 Host/Hostess Authentication Interface Message Text Blood Attestation: ATTESTATION OF INFORMED CONSENT FOR BLOOD: The transfusion of blood and/or blood components were discussed with the patient and/or legal product support representative. The risks, benefits and alternatives were reviewed. Questions regarding blood transfusions were answered. The patient /or the patient's legal product support representative agree with the plan for transfusion of blood and/or blood components. Normal [facility] Brief Operative Noteon 12-27 Host/Hostess Authentication Interface Message Text Brief Operative Note PHE OR 3 Johnny Devine 33 year old male Surgical Contact Serial Number: [id number] Preoperative Diagnosis: Pre-op Diagnosis * Caries [K02.9] Moderate intellectual disability [F79] Postoperative Diagnosis: Moderate intellectual disability [F79] Procedures: Comprehensive exam [17691] Full mouth X-ray [ 07842] Extractions [28205] Restorations [09392] Prophy 53112] Fluoride treatment [48935] Surgeon(s): Surgeon(s): Mari Traore DMD Staff: Fry Cook Nurse: Henrietta Johnson Anesthesia: General Anesthesia Staff: [...] Whiting DDS 12/28/2023 1;48 pm Normal [facility] OP Noteon 12-28-2023 Host/Hostess Authentication Interface Message Text Surgical Case Number Data Unavailable Operating Room Data Unavailable Preoperative Diagnosis(es): Pre-op Diagnosis * Caries [K02.9] Moderate intellectual disability [F79] Postoperative Diagnosis(es): Moderate intellectual disability[F79] @ENCORD@ Surgeon: Dr. Mari Traore DMD Associate Professor Of Church Music Surgeon: Reema Whiting DDS Anesthesia: General- Nasal [...] 4 mg/0.1 mL nasal liquid Use 1 Reynolds in one nostril (alternate sides) as needed [...] Whiting DDS 12/28/2023 1:53 pm Normal [facility] Progress Noteson 12-28-2023 Host/Hostess Authentication Interface Message Text Patient takes his seizure medication with pudding, facility held them today for dental surgery. Caregiver brought capsules with them to pre-op. Per Dr. Saldivar, divalproex 125 mg x 4 capsules (500 mg) were opened and sprinkles given to patient with 50 mL of water in pre-op. 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 MB cusp tip was visualized upon extraction of #17, but well encased in bone and would not be exposed to the oral cavity following healing of the extraction site. Preoperative Diagnosis(es): Pre-op Diagnosis * Caries [K02.9] Moderate intellectual disability [F79] Postoperative Diagnosis(es): Moderate intellectual disability[F79] Surgeon: Dr. Mari Traore DMD Associate Professor Of Church Music Surgeon: Reema Whiting DDS Anesthesia: General- Nasal [...] at end of surgery: Stable Normal [facility] CHRISTINA Delgado Host/Hostess Authentication Interface Message Text Addendum 12/21/2023- Caregiver @ [facility] facility called to relay that patient unable to take medications without pudding. Per Dr. Newell: Instruct them to take the meds at night. Please then coordinate with either the anesthesia team or surgical team to order IV depacon so he can get his depakote. I would have the facility bring his oral depakote for after surgery If they can't get the depacon at [place] CHRISTINA RN updated nursing staff @ [facility]. Normal [facility] BASIC METABOLIC PANELon 05-0 Anion gap [Moles/Vol] 13 mmol/L Normal 10-20 [facility] Comment on above: Performed By: #### C H8 ####[facility] [id number] [place], [place], Calcium [Mass/Vol] 9.9 mg/dL Normal 8.6-10.3 [facility] Comment on above: Performed By: #### C H8 ####[facility] [id number] [place], [place], Chloride [Moles/Vol] 106 mmol/L Normal 98-107 [facility] Comment on above: Performed By: #### C H8 ####S PATHOLOGY [id number] [place], [place], CO2 [Moles/Vol] 25 mmol/L Normal 21-31 [facility] Comment on above: Performed By: #### C H8 ####S PATHOLOGY [id number] [place], [place], Creatinine [Mass/Vol] 0.93 mg/dL Normal 0.70-1.30 [facility] Comment on above: Performed By: #### C H8 ####S PATHOLOGY [id number] [place], [place], ESTIMATED GFR (CKD-EPI) 113 mL/min/1.73sqm Normal >=60 [facility] Comment on above: Result Comment: 2020 [...] Inclusion of Race in Diagnosing Kidney Disease. Dutch Journal of Kidney Diseases 2021;79(2):268-88.e1. 2. N Engl J Med 1 Vol. 385 Issue 19 Pages 7224-0324 Performed By: #### C H8 ####S PATHOLOGY [id number] [place], [place], Glucose [Mass/Vol] 115 mg/dL High 74-109 [facility] Comment on above: Performed By: #### C H8 ####S PATHOLOGY [id number] [place], [place], Potassium [Moles/Vol] 4.6 mmol/L Normal 3.5-5.0 [facility] Comment on above: Performed By: #### C H8 ####[facility] [id number] [place], [place], Sodium [Moles/Vol] 139 mmol/L Normal 136-145 [facility] Comment on above: Performed By: #### C H8 ####[facility] [id number] [place], [place], Urea nitrogen [Mass/Vol] 15 mg/dL Normal 7-25 [facility] Comment on above: Performed By: #### C H8 ####[facility] [id number] [place], [place], Basic metabolic 2000 panelon 12-19-2023 Anion [...] Inclusion of Race in Diagnosing Kidney Disease. Dutch Journal of Kidney Diseases 2021;79(2):268-88.e1. 2. N Engl J Med 2020 Vol. 385 Issue 19 Pages 9372-7706 Glucose [Mass/Vol] 115 mg/dL High 74 - 109 mg/dL [facility] Interpretation and review of laboratory results Abnormal [facility] Potassium [Moles/Vol] 4.6 mmol/L 3.5 - 5.0 mmol/L [facility] Sodium [Moles/Vol] 139 mmol/L 136 - 145 mmol/L [facility] Urea nitrogen [Mass/Vol] 15 mg/dL 7 - 25 mg/dL [facility] PAT Appt H AND Ross 4 Host/Hostess Authentication Interface Message Text Patient was identified by name and date of . Jaswinder Arredondo Patient at risk for falls:No Falls Risk protocol implemented: N/A Normal [facility] Patient Instructionson 12-18 Host/Hostess Authentication Interface Message Text [facility] staff: Since patient is unable to take [...] for pain. Please hold all Vitamin E, [place] 3, fish oil and herbal supplements for 1 week prior to surgery. Please use this LIST to prepare for your surgery/procedure: ? Assume that any lab or testing done during your Pre-admission testing appointment is within normal limits unless otherwise contacted. ? Expect a call from [facility] one business day prior to surgery for [...] questions. Contact the Pre-Admission Testing department at [phone] or your surgeon's office with any questions [...] stay with you after surgery. Please call [employer] if you need transportation assistance or have concerns about going home [phone]. ? SLEEP APNEA PATIENTS: Bring your sleep apnea machine and mask. ? PLEASE BE ON TIME. A late arrival may result in the cancellation/ delay of your surgery. Thank you for choosing [facility]; it is our pleasure to care for you Normal [facility] 12-03-2023 [facility] Office Visit (UROLMN ) JOHNNY DEVINE ([id number]) 1990 M Date Time Provider Department 12/03/23 [...] OFFICE/OUTPATIENT EST PT MAY NOT REQ PHYS/QHP [14057] LOS History for Encounter Encounter Status:Closed by OSCAR RUIZ on 12/03/23 Normal [facility] CNOVon 11-28-2023 CNOV Office Visit (CORTEZ ) NILSONJOHNNY ([id number]) 1990 M Date Time Provider Department 11/28/23 [...] Victoria Sanchez APRN.CNP 11/28/2023 10:19 AM Signed [facility] Clinic Date: November 28, 2023 Johnny Devine 33 year old male CHIEF COMPLAINT: Patient presents for follow up from surgery. HPI: Here for follow up after diagnostic laparotomy on 10/29/[address] Robin. Patient also underwent a dorsal slit procedure with urology on 10/30/2023 for paraphimosis. Patient with a pet caretaker today to discuss his postoperative course since [...] ICD10: Z48.89 (more content not included)... 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] Prescriptions as of [...] Encounter Status:Closed by CRIS DINH on 3/25/24 [facility] metabolic 2000 panelon 11-07-2023 Anion gap [Moles/Vol] 10 mmol/L Normal 9-18 [facility] Comment on above: Order Comment: Speci men Type: BLOOD SPECIMEN Ordering Facility: [facility] Address: [address] [place] [address] Performed By: #### 2 4321-2, , 2776-08 #### [facility] CLIA [id number] [address] [place] [address] [place] Calcium [Mass/Vol] 8.2 mg/dL Low 8.5-10.2 [facility] Comment on above: Order Comment: Speci men Type: BLOOD SPECIMEN Ordering Facility: [facility] Address: [address] [place] [address] Performed By: #### 2 4321-2, , 2776-08 #### [facility] CLIA [id number] [address] [place] [address] [place] Chloride [Moles/Vol] 110 mmol/L High 97-105 [facility] Comment on above: Order Comment: Speci men Type: BLOOD SPECIMEN Ordering Facility: [facility] Address: [address] [place] [address] Performed By: #### 2 4321-2, , 2776-08 #### [facility] CLIA [id number] [address] [place] [address] [place] CO2 [Moles/Vol] 21 mmol/L Low 22-30 [facility] Comment on above: Order Comment: Speci men Type: BLOOD SPECIMEN Ordering Facility: [facility] Address: [address] [place] [address] Performed By: #### 2 4321-2, , 2776-08 #### [facility] CLIA [id number] [address] [place] [address] [place] Creatinine [Mass/Vol] 0.70 mg/dL Low 0.73-1.22 [facility] Comment on above: Order Comment: Sana zuñiga Type: BLOOD SPECIMEN Ordering Facility: [facility] Address: [address] [place] [address] Performed By: #### 2 4321-2, , 2776-08 #### [facility] CLIA [id number] [address] [place] [address] [place] Creatinine and Glomerular filtration rate.predicted panel (S/P/Bld) 126 mL/min/1.73m??? Normal >=60 [facility] Comment on above: Order Comment: Sana zuñiga Type: BLOOD SPECIMEN Ordering Facility: [facility] Address: [address] [place] [address] Result Comment: Lor mated Glomerular Filtration Rate [...] By: #### 2 4321-2, , 2776-08 #### [facility] CLIA [id number] [address] [place] [address] [place] Glucose [Mass/Vol] 91 mg/dL Normal 74-99 [facility] Comment on above: Order Comment: Sana zuñiga Type: BLOOD SPECIMEN Ordering Facility: [facility] Address: [address] [place] [address] Result Comment: The [place] Diabetes Association (ADA) provides guidance for cutoff [...] Standards of Medical Care in Diabetes 2016, [place] Diabetes Association. Diabetes Care. 2016.39(Suppl 1). Performed By: #### 2 4321-2, , 2776-08 #### [facility] CLIA [id number] [address] [place] [address] [place] Potassium [Moles/Vol] 4.4 mmol/L Normal 3.7-5.1 [facility] Comment on above: Order Comment: Speci men Type: BLOOD SPECIMEN Ordering Facility: [facility] Address: [address] [place] [address] Performed By: #### 2 4321-2, , 2776-08 #### [facility] CLIA [id number] [address] [place] [address] [place] Sodium [Moles/Vol] 141 mmol/L Normal 136-144 [facility] Comment on above: Order Comment: Speci men Type: BLOOD SPECIMEN Ordering Facility: [facility] Address: [address] [place] [address] Performed By: #### 2 432-2, , 2776-08 #### [facility] CLIA [id number] [address] [place] [address] [place] Urea nitrogen [Mass/Vol] 8 mg/dL Low 9-24 [facility] Comment on above: Order Comment: Speci men Type: BLOOD SPECIMEN Ordering Facility: [facility] Address: [address] [place] [address] Performed By: #### 2 432-2, , 2776-08 #### [facility] CLIA [id number] [address] [place], [place] [address] [place] CBC panel Auto (Bld)on 11-06 Erythrocyte distribution width (RBC) [Ratio] 15.1 % High 11.5-15.0 [facility] Comment on above: Order Comment: Speci men Type: BLOOD SPECIMENOrdering Facility: [facility] Address: [address] [place] [address] Performed By: #### 5 8410-2 ####[facility] [id number] [place] [address] [place] Hematocrit (Bld) [Volume fraction] 31.4 % Low 39.0-51.0 [facility] Comment on above: Order Comment: Speci men Type: BLOOD SPECIMENOrdering Facility: [facility] Address: [address] [place] [address] Performed By: #### 5 8410-2 ####[facility] [id number] [place] [address] [place] Hemoglobin (Bld) [Mass/Vol] 9.9 g/dL Low 13.0-17.0 [facility] Comment on above: Order Comment: Speci men Type: BLOOD SPECIMENOrdering Facility: [facility] Address: [address] [place] [address] Performed By: #### 5 8410-2 ####[facility] [id number] [place] [address] [place] MCH (RBC) [Entitic mass] 27.3 pg Normal 26.0-34.0 [facility] Comment on above: Order Comment: Speci men Type: BLOOD SPECIMENOrdering Facility: [facility] Address: [address] [place] [address] Performed By: #### 5 8410-2 ####[facility] [id number] [place] [address] [place] MCHC (RBC) [Mass/Vol] 31.5 g/dL Normal 30.5-36.0 [facility] Comment on above: Order Comment: Speci men Type: BLOOD SPECIMENOrdering Facility: [facility] Address: [address] [place] [address] Performed By: #### 5 8410-2 ####[facility] [id number] [place] [address] [place] MCV (RBC) [Entitic vol] 86.5 fL Normal 80.0-100.0 [facility] Comment on above: Order Comment: Speci men Type: BLOOD SPECIMENOrdering Facility: [facility] Address: [address] [place] [address] Performed By: #### 5 8410-2 ####[facility] [id number] [place] [address] [place] Nucleated RBC (Bld) [#/Vol] 10*3/uL Normal <0.01 [facility] Comment on above: Order Comment: Speci men Type: BLOOD SPECIMENOrdering Facility: [facility] Address: [address] [place] [address] Performed By: #### 5 8410-2 ####[facility] [id number] [place] [address] [place] Platelet mean volume (Bld) [Entitic vol] 9.4 fL Normal 9.0-12.7 [facility] Comment on above: Order Comment: Speci men Type: BLOOD SPECIMENOrdering Facility: [facility] Address: [address] [place] [address] Performed By: #### 5 8410-2 ####[facility] [id number] [place] [address] [place] Platelets (Bld) [#/Vol] 215 10*3/uL Normal 150-400 [facility] Comment on above: Order Comment: Speci men Type: BLOOD SPECIMENOrdering Facility: [facility] Address: [address] [place] [address] Performed By: #### 5 8410-2 ####[facility] [id number] [place] [address] [place] RBC (Bld) [#/Vol] 3.63 10*6/uL Low 4.20-6.00 [facility] Comment on above: Order Comment: Speci men Type: BLOOD SPECIMENOrdering Facility: [facility] Address: [address] [place] [address] Performed By: #### 5 8410-2 ####[facility] [id number] [place] [address] [place] WBC (Bld) [#/Vol] 8.67 10*3/uL Normal 3.70-11.00 [facility] Comment on above: Order Comment: Speci men Type: BLOOD SPECIMENOrdering Facility: [facility] Address: [address] [place] [address] Performed By: #### 5 8410-2 ####[facility] [id number] [place] [address] [place] CNCOon 11-07-2023 CNCO Letter Text Normal [facility] CNDSon 11-07-2023 CNDS HNO ID: [id number] Author: SAMUEL ROIBN MD Service: General Surgery Author Type: Resident [...] who presents as a transfer to [facility] from [facility] ED for further management of small bowel obstruction. Given patient's baseline cognitive status, NGT difficult to maintain. He was admitted to the [facility] under care of general surgery and was taken to the OR the following morning for diagnostic laparoscopy. Intra-operative findings demonstrated no adhesins, no apparent hernias, dilated small/large bowel, redundant sigmoid c/f volvulus, easily reduced. After recovering in the PACU, he was taken to the [facility] with NGT in place. Patient arrived to [facility] with 8 Fr pediatric haskins [...] Diagnosis Date Noted Oropharyngeal dysphagia 11/06/2023 Epilepsy ([facility]) 11/06/2023 S/P laparoscopy 11/05/2023 Acute postoperative pain 11/05/2023 Obesity, Class I, BMI 30-34.9 11/02/2023 Developmental non-verbal disorder Obsessive-compulsive disorder 09/16/2018 Moderate intellectual disability 09/16/2018 Hypothyroidism 09/16/2018 Bipolar disorder ([facility]) 09/16/2018 Resolved Hospital Problems Diagnosis Date Noted Date Resolved SBO (small bowel obstruction) ([facility]) 10/28/2023 10/31/2023 Transitions of Care Critical Issues: Follow up with Dr. Fairbanks MRI as outpatient and follow up with Neurology in 2 weeks LABS AND PROCEDURES PENDING AT DISCHARGE: No pending results. CONSULTING TEAMS DURING HOSPIT (more content not included)... Normal [facility] CONSULT PROGon 11-07-2023 CONSULT PROG HNO ID: [id number] Author: BRUCE RESENDIZ MD Service: Neurology General [...] November 06, 2023 TIME: 8:36 AM Normal [facility] Magnesium SerPl-mCncon 11-06 Magnesium [Mass/Vol] 2.1 mg/dL Normal 1.7-2.3 [facility] Comment on above: Order Comment: Speci men Type: BLOOD SPECIMEN Ordering Facility: [facility] Address: [address] [place] [address] Performed By: #### 2 4321-2, 95023-8, 2777-1 #### [facility] CLIA [id number] [address] [place] [address] [place] [address] [place] NURSING PROGon 11-07-2023 NURSING PROG HNO ID: [id number] Author: MAYANK READ RN Service: Nursing Author Type: Registered Nurse Type: Nursing Progress Note Filed: 11/07/2023 14:53 Note Text: Pt is discharged to a custodial, 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 Reviewed discharge paper works and handed it to the ordnance truck installation supervisor. IV removed, pt tolerated. EEG removed by slot technician. Normal [facility] NUTRITIONon 11-07-2023 NUTRITION HNO ID: [id number] Author: RAFAELA COOL DTR Service: Nutrition Therapy Author Type: Dictionary Editor Type: Nutrition Filed: 11/07/2023 13:38 Note Text: NUTRITION THERAPY SENIOR ORACLE [address] SQL DEVELOPER NOTE SERVICE DATE: 11/07/2023 SERVICE TIME: 1000 [...] November 07, 2023 TIME: 1:38 PM Normal [facility] Phosphate SerPl-mCncon 11-06 Phosphate [Mass/Vol] 4.1 mg/dL Normal 2.7-4.8 [facility] Comment on above: Order Comment: Speci men Type: BLOOD SPECIMEN Ordering Facility: [facility] Address: [address] [place] [address] Performed By: #### 2 4321-2, 22303-9, 2777-1 #### [facility] CLIA [id number] [address] [place] [address] [id number], [place] [address] [place] Basic metabolic 2000 panelon 11-06-2023 Anion gap [Moles/Vol] 16 mmol/L Normal 9-18 [facility] Comment on above: Order Comment: Speci men Type: BLOOD SPECIMEN Ordering Facility: [facility] Address: [address] [place] [address] Performed By: #### 2 4321-2, , 2776-08 #### [facility] CLIA [id number] [address] [place] [address] [place] Calcium [Mass/Vol] 8.9 mg/dL Normal 8.5-10.2 [facility] Comment on above: Order Comment: Speci men Type: BLOOD SPECIMEN Ordering Facility: [facility] Address: [address] [place] [address] Performed By: #### 2 4321-2, , 2776-08 #### [facility] CLIA [id number] [address] [place] [address] [place] Chloride [Moles/Vol] 112 mmol/L High 97-105 [facility] Comment on above: Order Comment: Speci men Type: BLOOD SPECIMEN Ordering Facility: [facility] Address: [address] [place] [address] Performed By: #### 2 4321-2, , 2776-08 #### [facility] CLIA [id number] [address] [place] [address] [place] CO2 [Moles/Vol] 18 mmol/L Low 22-30 [facility] Comment on above: Order Comment: Speci men Type: BLOOD SPECIMEN Ordering Facility: [facility] Address: [address] [place] [address] Performed By: #### 2 4321-2, , 2776-08 #### [facility] CLIA [id number] [address] [place] [address] [place] Creatinine [Mass/Vol] 0.69 mg/dL Low 0.73-1.22 [facility] Comment on above: Order Comment: Sana zuñiga Type: BLOOD SPECIMEN Ordering Facility: [facility] Address: [address] [place] [address] Performed By: #### 2 4321-2, , 2776-08 #### [facility] CLIA [id number] [address] [place] [address] [place] Creatinine and Glomerular filtration rate.predicted panel (S/P/Bld) 127 mL/min/1.73m??? Normal >=60 [facility] Comment on above: Order Comment: Sana zuñiga Type: BLOOD SPECIMEN Ordering Facility: [facility] Address: [address] [place] [address] Result Comment: Lor mated Glomerular Filtration Rate [...] By: #### 2 4321-2, , 2776-08 #### [facility] CLIA [id number] [address] [place] [address] [place] Glucose [Mass/Vol] 83 mg/dL Normal 74-99 [facility] Comment on above: Order Comment: Sana zuñiga Type: BLOOD SPECIMEN Ordering Facility: [facility] Address: [address] [place] [address] Result Comment: The [place] Diabetes [employer] (ADA) provides guidance for cutoff [...] Standards of Medical Care in Diabetes 2016, [place] [employer]. Diabetes Care. 2016.39(Suppl 1). Performed By: #### 2 4321-2, , 2776-08 #### [facility] CLIA [id number] [address] [place] [address] [place] Potassium [Moles/Vol] 4.9 mmol/L Normal 3.7-5.1 [facility] Comment on above: Order Comment: Speci men Type: BLOOD SPECIMEN Ordering Facility: [facility] Address: [address] [place] [address] Performed By: #### 2 4321-2, , 2776-08 #### [facility] CLIA [id number] [address] [place] [address] [place] Sodium [Moles/Vol] 146 mmol/L High 136-144 [facility] Comment on above: Order Comment: Speci men Type: BLOOD SPECIMEN Ordering Facility: [facility] Address: [address] [place] [address] Performed By: #### 2 432-2, , 2776-08 #### [facility] CLIA [id number] [address] [place] [address] [place] Urea nitrogen [Mass/Vol] 6 mg/dL Low 9-24 [facility] Comment on above: Order Comment: Speci men Type: BLOOD SPECIMEN Ordering Facility: [facility] Address: [address] [place] [address] Performed By: #### 2 4321-2, , 2776-08 #### [facility] CLIA [id number] [address] [place], [place] [address] [place] CBC panel Auto (Bld)on 11-05 Erythrocyte distribution width (RBC) [Ratio] 14.8 % Normal 11.5-15.0 [facility] Comment on above: Order Comment: Speci men Type: BLOOD SPECIMEN Ordering Facility: [facility] Address: [address] [place] [address] Performed By: #### 2 777-1, 27246-1, #### [facility] CLIA [id number] [address] [place] [address] [place] Hematocrit (Bld) [Volume fraction] 31.3 % Low 39.0-51.0 [facility] Comment on above: Order Comment: Speci men Type: BLOOD SPECIMEN Ordering Facility: [facility] Address: [address] [place] [address] Performed By: #### 2 777-1, 59949-6, #### [facility] CLIA [id number] [address] [place] [address] [place] Hemoglobin (Bld) [Mass/Vol] 9.8 g/dL Low 13.0-17.0 [facility] Comment on above: Order Comment: Speci men Type: BLOOD SPECIMEN Ordering Facility: [facility] Address: [address] [place] [address] Performed By: #### 2 777-1, , #### [facility] CLIA [id number] [address] [place] [address] [place] MCH (RBC) [Entitic mass] 26.4 pg Normal 26.0-34.0 [facility] Comment on above: Order Comment: Speci men Type: BLOOD SPECIMEN Ordering Facility: [facility] Address: [address] [place] [address] Performed By: #### 2 777-1, 68117-3, #### [facility] CLIA [id number] [address] [place], [place] [address] [place] MCHC (RBC) [Mass/Vol] 31.3 g/dL Normal 30.5-36.0 [facility] Comment on above: Order Comment: Speci men Type: BLOOD SPECIMEN Ordering Facility: [facility] Address: [address] [place] [address] Performed By: #### 2 777-1, 93565-1, #### [facility] CLIA [id number] [address] [place] [address] [place] MCV (RBC) [Entitic vol] 84.4 fL Normal 80.0-100.0 [facility] Comment on above: Order Comment: Speci men Type: BLOOD SPECIMEN Ordering Facility: [facility] Address: [address] [place] [address] Performed By: #### 2 777-1, 67800-5, #### [facility] CLIA [id number] [address] [place] [address] [place] Nucleated RBC (Bld) [#/Vol] 10*3/uL Normal <0.01 [facility] Comment on above: Order Comment: Speci men Type: BLOOD SPECIMEN Ordering Facility: [facility] Address: [address] [place] [address] Performed By: #### 2 777-1, 63080-1, #### [facility] CLIA [id number] [address] [place] [address] [place] Platelet mean volume (Bld) [Entitic vol] 8.9 fL Low 9.0-12.7 [facility] Comment on above: Order Comment: Speci men Type: BLOOD SPECIMEN Ordering Facility: [facility] Address: [address] [place] [address] Performed By: #### 2 777-1, 16234-2, #### [facility] CLIA [id number] [address] [place] [address] [place] Platelets (Bld) [#/Vol] 244 10*3/uL Normal 150-400 [facility] Comment on above: Order Comment: Speci men Type: BLOOD SPECIMEN Ordering Facility: [facility] Address: [address] [place] [address] Performed By: #### 2 777-1, 33448-4, #### [facility] CLIA [id number] [address] [place] [address] [place] RBC (Bld) [#/Vol] 3.71 10*6/uL Low 4.20-6.00 [facility] Comment on above: Order Comment: Speci men Type: BLOOD SPECIMEN Ordering Facility: [facility] Address: [address] [place] [address] Performed By: #### 2 777-1, 54199-8, #### [facility] CLIA [id number] [address] [place] [address] [place] WBC (Bld) [#/Vol] 7.59 10*3/uL Normal 3.70-11.00 [facility] Comment on above: Order Comment: Speci men Type: BLOOD SPECIMEN Ordering Facility: [facility] Address: [address] [place] [address] Performed By: #### 2 777-1, 30321-2, #### [facility] CLIA [id number] [address] [place] [address] [place] CONSULT PROGon 11-06-2023 CONSULT PROG HNO ID: [id number] Author: KIM BHAKTA MD Service: Neurology General [...] for now. Kim Bhakta MD Staff Neurologist [facility] Normal [facility] Magnesium SerPl-mCncon 11-05 Magnesium [Mass/Vol] 2.3 mg/dL Normal 1.7-2.3 [facility] Comment on above: Order Comment: Sana zuñiga Type: BLOOD SPECIMEN Ordering Facility: [facility] Address: [address] [place] [address] Performed By: #### 2 4321-2, 68675-8, 2777-1 #### [facility] CLIA [id number] [address] [place], [place] [address] [place] [address] [place] Phosphate SerPl-mCncon 11-05 Phosphate [Mass/Vol] 4.1 mg/dL Normal 2.7-4.8 [facility] Comment on above: Order Comment: Sana zuñiga Type: BLOOD SPECIMEN Ordering Facility: [facility] Address: [address] [place] [address] Performed By: #### 2 4321-2, 37332-1, 2777-1 #### [facility] CLIA [id number] [address] [place], [place] [address] [place] THERAPY NTon 11-06-2023 THERAPY NT HNO ID: [id number] Author: CHANTELL BELLA CCC-LINK WIRE FABRIC MACHINE OPERATOR Service: Speech/Swallow Author Type: Speech Language Pathologist Type: Therapy (PT/OT/Speech/Resp) Filed: 11/06/2023 10:28 Note Text: [facility] Speech Pathology - [facility] Bedside Swallow Evaluation SERVICE DATE: 11/06/2023 ROOM: [place] [address] IMPRESSIONS: Limited bedside swallowing evaluation as patient [...] assessment. PLAN: Page with concerns/questions. Chantell Bella CCC-LINK WIRE FABRIC MACHINE OPERATOR Pager # [phone] BRIEF DIAGNOSIS AND HISTORY per General Surgery [...] discussed with: MIRIAM adkins SIGNATURE: Chantell Bella CCC-LINK WIRE FABRIC MACHINE OPERATOR PATIENT NAME: Johnny Devine DATE: November 06, 2023 TIME: 10:12 AM PAGER: [phone] Normal [facility] Basic metabolic 2000 panelon 11-05-2023 Anion gap [Moles/Vol] 7 mmol/L Low - [facility] Comment on above: Order Comment: Speci men Type: BLOOD SPECIMEN Ordering Facility: [facility] Address: [address] [place] [address] Performed By: #### 5 7021-8 #### [facility] CLIA [id number] [address] [place] [address] [place] Calcium [Mass/Vol] 7.6 mg/dL Low 8.5-10.2 [facility] Comment on above: Order Comment: Speci men Type: BLOOD SPECIMEN Ordering Facility: [facility] Address: [address] [place] [address] Performed By: #### 5 7021-8 #### [facility] CLIA [id number] [address] [place] [address] [place] Chloride [Moles/Vol] 112 mmol/L High 97-105 [facility] Comment on above: Order Comment: Speci men Type: BLOOD SPECIMEN Ordering Facility: [facility] Address: [address] [place] [address] Performed By: #### 5 7021-8 #### [facility] CLIA [id number] [address] [place] [address] [place] CO2 [Moles/Vol] 23 mmol/L Normal 22-30 [facility] Comment on above: Order Comment: Speci men Type: BLOOD SPECIMEN Ordering Facility: [facility] Address: [address] [place] [address] Performed By: #### 5 7021-8 #### [facility] CLIA [id number] [address] [place] [address] [place] Creatinine [Mass/Vol] 0.64 mg/dL Low 0.73-1.22 [facility] Comment on above: Order Comment: Speci men Type: BLOOD SPECIMEN Ordering Facility: [facility] Address: [address] [place] [address] Performed By: #### 5 7021-8 #### [facility] CLIA [id number] [address] [place] [address] [place] Creatinine and Glomerular filtration rate.predicted panel (S/P/Bld) 130 mL/min/1.73m??? Normal >=60 [facility] Comment on above: Order Comment: Sana zuñiga Type: BLOOD SPECIMEN Ordering Facility: [facility] Address: [address] [place] [address] Result Comment: Lor mated Glomerular Filtration Rate [...] GFR. Performed By: #### 5 7021-8 #### [facility] CLIA [id number] [address] [place] [address] [place] Glucose [Mass/Vol] 96 mg/dL Normal 74-99 [facility] Comment on above: Order Comment: Sana zuñiga Type: BLOOD SPECIMEN Ordering Facility: [facility] Address: [address] [place] [address] Result Comment: The [place] Diabetes [employer] (ADA) provides guidance for cutoff [...] Standards of Medical Care in Diabetes 2016, [place] [employer]. Diabetes Care. 2016.39(Suppl 1). Performed By: #### 5 7021-8 #### [facility] CLIA [id number] [address] [place] [address] [place] Potassium [Moles/Vol] 4.2 mmol/L Normal 3.7-5.1 [facility] Comment on above: Order Comment: Speci men Type: BLOOD SPECIMEN Ordering Facility: [facility] Address: [address] [place] [address] Performed By: #### 5 7021-8 #### [facility] CLIA [id number] [address] [place] [address] [place] Sodium [Moles/Vol] 142 mmol/L Normal 136-144 [facility] Comment on above: Order Comment: Speci men Type: BLOOD SPECIMEN Ordering Facility: [facility] Address: [address] [place] [address] Performed By: #### 5 7021-8 #### [facility] CLIA [id number] [address] [place] [address] [place] Urea nitrogen [Mass/Vol] 5 mg/dL Low 9-24 [facility] Comment on above: Order Comment: Speci men Type: BLOOD SPECIMEN Ordering Facility: [facility] Address: [address] [place] [address] Performed By: #### 5 7021-8 #### [facility] CLIA [id number] [address] [place] [address] [place] CBC panel Auto (Bld)on 11-04 Erythrocyte distribution width (RBC) [Ratio] 14.6 % Normal 11.5-15.0 [facility] Comment on above: Order Comment: Speci men Type: BLOOD SPECIMENOrdering Facility: [facility] Address: [address] [place] [address] Performed By: #### 5 8410-2 ####[facility] [id number] [place] [address] [place] Hematocrit (Bld) [Volume fraction] 30.8 % Low 39.0-51.0 [facility] Comment on above: Order Comment: Speci men Type: BLOOD SPECIMENOrdering Facility: [facility] Address: [address] [place] [address] Performed By: #### 5 8410-2 ####[facility] [id number] [place] [address] [place] Hemoglobin (Bld) [Mass/Vol] 9.7 g/dL Low 13.0-17.0 [facility] Comment on above: Order Comment: Speci men Type: BLOOD SPECIMENOrdering Facility: [facility] Address: [address] [place] [address] Performed By: #### 5 8410-2 ####[facility] [id number] [place] [address] [place] MCH (RBC) [Entitic mass] 26.5 pg Normal 26.0-34.0 [facility] Comment on above: Order Comment: Speci men Type: BLOOD SPECIMENOrdering Facility: [facility] Address: [address] [place] [address] Performed By: #### 5 8410-2 ####[facility] [id number] [place] [address] [place] MCHC (RBC) [Mass/Vol] 31.5 g/dL Normal 30.5-36.0 [facility] Comment on above: Order Comment: Speci men Type: BLOOD SPECIMENOrdering Facility: [facility] Address: [address] [place] [address] Performed By: #### 5 8410-2 ####[facility] [id number] [place] [address] [place] MCV (RBC) [Entitic vol] 84.2 fL Normal 80.0-100.0 [facility] Comment on above: Order Comment: Speci men Type: BLOOD SPECIMENOrdering Facility: [facility] Address: [address] [place] [address] Performed By: #### 5 8410-2 ####[facility] [id number] [place] [address] [place] Nucleated RBC (Bld) [#/Vol] 10*3/uL Normal <0.01 [facility] Comment on above: Order Comment: Speci men Type: BLOOD SPECIMENOrdering Facility: [facility] Address: [address] [place] [address] Performed By: #### 5 8410-2 ####[facility] [id number] [place] [address] [place] Platelet mean volume (Bld) [Entitic vol] 9.1 fL Normal 9.0-12.7 [facility] Comment on above: Order Comment: Speci men Type: BLOOD SPECIMENOrdering Facility: [facility] Address: [address] [place] [address] Performed By: #### 5 8410-2 ####[facility] [id number] [place] [address] [place] Platelets (Bld) [#/Vol] 205 10*3/uL Normal 150-400 [facility] Comment on above: Order Comment: Speci men Type: BLOOD SPECIMENOrdering Facility: [facility] Address: [address] [place] [address] Performed By: #### 5 8410-2 ####[facility] [id number] [place] [address] [place] RBC (Bld) [#/Vol] 3.66 10*6/uL Low 4.20-6.00 [facility] Comment on above: Order Comment: Speci men Type: BLOOD SPECIMENOrdering Facility: [facility] Address: [address] [place] [address] Performed By: #### 5 8410-2 ####[facility] [id number] [place] [address] [place] WBC (Bld) [#/Vol] 7.54 10*3/uL Normal 3.70-11.00 [facility] Comment on above: Order Comment: Speci men Type: BLOOD SPECIMENOrdering Facility: [facility] Address: [address] [place] [address] Performed By: #### 5 8410-2 ####[facility] [id number] [place] [address] [place] [facility] Magnesium [Mass/Vol] 2.0 mg/dL Normal 1.7-2.3 [facility] Comment on above: Order Comment: Speci men Type: BLOOD SPECIMEN Ordering Facility: [facility] Address: [address] [place] [address] Performed By: #### 5 7021-8 #### [facility] CLIA [id number] [address] [place] [address] [place] Phosphate SerPl-mCncon 11-04 Phosphate [Mass/Vol] 3.1 mg/dL Normal 2.7-4.8 [facility] Comment on above: Order Comment: Speci men Type: BLOOD SPECIMEN Ordering Facility: [facility] Address: [address] [place] [address] Performed By: #### 5 7021-8 #### [facility] CLIA [id number] [address] [place] [address] [place] THERAPY NTon 11-05-2023 THERAPY NT HNO ID: [id number] Author: ANA LUISA MORALES, PT Service: ? Author Type: Physical Therapist Type: Therapy (PT/OT/Speech/Resp) Filed: 11/05/2023 15:46 Note Text: Physical Therapy Evaluation Summary SERVICE DATE: 11/05/2023 SERVICE TIME: 1459 to 1532 ROOM: [place] [address] PT 6 Clicks Score: 18 DISCHARGE RECOMMENDATIONS [...] Patient Lives With: Other: See Comment Comments: long term ( intermediate care ) Assistance Available: 24-Hour [...] to like to put things together, laundry, [place]. SUBJECTIVE Pt non-verbal throughout session THERAPY DIAGNOSIS Reduced mobility-other, Abnormalities of gait and mobility-other TREATMENT INTERVENTIONS Evaluation, Therapeutic Activity (24789) Timed Code Treatment (minutes): 18 Skilled Treatment [...] Type: Stepping Bed To Chair Transfer Equipment: (EVENT COORDINATOR) frequent verbal cues Gait Contact Guard Assistance [...] November 05, 2023 TIME: 3:46 PM Normal [facility] Basic metabolic 2000 panelon 11-04-2023 Anion gap [Moles/Vol] 9 mmol/L Normal - [facility] Comment on above: Order Comment: Speci men Type: BLOOD SPECIMEN Ordering Facility: [facility] Address: [address] [place] [address] Performed By: #### 2 777-1, 43696-4, #### [facility] CLIA [id number] [address] [place] [address] [place] Calcium [Mass/Vol] 7.7 mg/dL Low 8.5-10.2 [facility] Comment on above: Order Comment: Speci men Type: BLOOD SPECIMEN Ordering Facility: [facility] Address: [address] [place] [address] Performed By: #### 2 777-1, 37162-8, #### [facility] CLIA [id number] [address] [place] [address] [place] Chloride [Moles/Vol] 112 mmol/L High 97-105 [facility] Comment on above: Order Comment: Speci men Type: BLOOD SPECIMEN Ordering Facility: [facility] Address: [address] [place] [address] Performed By: #### 2 777-1, 59272-9, #### [facility] CLIA [id number] [address] [place] [address] [place] CO2 [Moles/Vol] 24 mmol/L Normal 22-30 [facility] Comment on above: Order Comment: Speci men Type: BLOOD SPECIMEN Ordering Facility: [facility] Address: [address] [place] [address] Performed By: #### 2 777-1, 41437-8, #### [facility] CLIA [id number] [address] [place] [address] [place] Creatinine [Mass/Vol] 0.70 mg/dL Low 0.73-1.22 [facility] Comment on above: Order Comment: Speci men Type: BLOOD SPECIMEN Ordering Facility: [facility] Address: [address] [place] [address] Performed By: #### 2 777-1, 08421-6, #### [facility] CLIA [id number] [address] [place] [address] [place] Creatinine and Glomerular filtration rate.predicted panel (S/P/Bld) 126 mL/min/1.73m??? Normal >=60 [facility] Comment on above: Order Comment: Speci men Type: BLOOD SPECIMEN Ordering Facility: [facility] Address: [address] [place] [address] Result Comment: Lor mated Glomerular Filtration Rate [...] Performed By: #### 2 777-1, , #### [facility] CLIA [id number] [address] [place] [address] [place] Glucose [Mass/Vol] 79 mg/dL Normal 74-99 [facility] Comment on above: Order Comment: Sana zuñiga Type: BLOOD SPECIMEN Ordering Facility: [facility] Address: [address] [place] [address] Result Comment: The [place] Diabetes [employer] (ADA) provides guidance for cutoff [...] Standards of Medical Care in Diabetes 2016, [place] [employer]. Diabetes Care. 2016.39(Suppl 1). Performed By: #### 2 777-1, , #### [facility] CLIA [id number] [address] [place] [address] [place] Potassium [Moles/Vol] 3.6 mmol/L Low 3.7-5.1 [facility] Comment on above: Order Comment: Sana zuñiga Type: BLOOD SPECIMEN Ordering Facility: [facility] Address: [address] [place] [address] Performed By: #### 2 777-1, , #### [facility] CLIA [id number] [address] [place] [address] [place] Sodium [Moles/Vol] 145 mmol/L High 136-144 [facility] Comment on above: Order Comment: Speci men Type: BLOOD SPECIMEN Ordering Facility: [facility] Address: [address] [place] [address] Performed By: #### 2 777-1, 43823-9, #### [facility] CLIA [id number] [address] [place] [address] [place] Urea nitrogen [Mass/Vol] 4 mg/dL Low 9-24 [facility] Comment on above: Order Comment: Speci men Type: BLOOD SPECIMEN Ordering Facility: [facility] Address: [address] [place] [address] Performed By: #### 2 777-1, 07374-1, #### [facility] CLIA [id number] [address] [place] [address] [place] CBC panel Auto (Bld)on 11-03 Erythrocyte distribution width (RBC) [Ratio] 14.3 % Normal 11.5-15.0 [facility] Comment on above: Order Comment: Speci men Type: BLOOD SPECIMEN Ordering Facility: [facility] Address: [address] [place] [address] Performed By: #### 2 777-1, , #### [facility] CLIA [id number] [address] [place] [address] [place] Hematocrit (Bld) [Volume fraction] 33.4 % Low 39.0-51.0 [facility] Comment on above: Order Comment: Speci men Type: BLOOD SPECIMEN Ordering Facility: [facility] Address: [address] [place] [address] Performed By: #### 2 777-1, 83380-9, #### [facility] CLIA [id number] [address] [place] [address] [place] Hemoglobin (Bld) [Mass/Vol] 10.5 g/dL Low 13.0-17.0 [facility] Comment on above: Order Comment: Speci men Type: BLOOD SPECIMEN Ordering Facility: [facility] Address: [address] [place] [address] Performed By: #### 2 777-1, 52713-3, #### [facility] CLIA [id number] [address] [place] [address] [place] MCH (RBC) [Entitic mass] 26.4 pg Normal 26.0-34.0 [facility] Comment on above: Order Comment: Speci men Type: BLOOD SPECIMEN Ordering Facility: [facility] Address: [address] [place] [address] Performed By: #### 2 777-1, 64487-4, #### [facility] CLIA [id number] [address] [place] [address] [place] MCHC (RBC) [Mass/Vol] 31.4 g/dL Normal 30.5-36.0 [facility] Comment on above: Order Comment: Speci men Type: BLOOD SPECIMEN Ordering Facility: [facility] Address: [address] [place] [address] Performed By: #### 2 777-1, 27192-1, #### [facility] CLIA [id number] [address] [place] [address] [place] MCV (RBC) [Entitic vol] 84.1 fL Normal 80.0-100.0 [facility] Comment on above: Order Comment: Speci men Type: BLOOD SPECIMEN Ordering Facility: [facility] Address: [address] [place] [address] Performed By: #### 2 777-1, 57552-2, #### [facility] CLIA [id number] [address] [place] [address] [place] Nucleated RBC (Bld) [#/Vol] 10*3/uL Normal <0.01 [facility] Comment on above: Order Comment: Speci men Type: BLOOD SPECIMEN Ordering Facility: [facility] Address: [address] [place] [address] Performed By: #### 2 777-1, 16595-5, #### [facility] CLIA [id number] [address] [place] [address] [place] Platelet mean volume (Bld) [Entitic vol] 8.9 fL Low 9.0-12.7 [facility] Comment on above: Order Comment: Speci men Type: BLOOD SPECIMEN Ordering Facility: [facility] Address: [address] [place] [address] Performed By: #### 2 777-1, 85562-7, #### [facility] CLIA [id number] [address] [place] [address] [place] Platelets (Bld) [#/Vol] 242 10*3/uL Normal 150-400 [facility] Comment on above: Order Comment: Speci men Type: BLOOD SPECIMEN Ordering Facility: [facility] Address: [address] [place] [address] Performed By: #### 2 777-1, 67718-0, #### [facility] CLIA [id number] [address] [place] [address] [place] RBC (Bld) [#/Vol] 3.97 10*6/uL Low 4.20-6.00 [facility] Comment on above: Order Comment: Speci men Type: BLOOD SPECIMEN Ordering Facility: [facility] Address: [address] [place] [address] Performed By: #### 2 777-1, 80106-7, #### [facility] CLIA [id number] [address] [place] [address] [place] WBC (Bld) [#/Vol] 9.36 10*3/uL Normal 3.70-11.00 [facility] Comment on above: Order Comment: Specdeshawn zuñiga Type: BLOOD SPECIMEN Ordering Facility: [facility] Address: [address] [place] [address] Performed By: #### 2 777-1, 58143-7, #### [facility] CLIA [id number] [address] [place] [address] [place] Magnesium SerPl-mCncon 11-03 Magnesium [Mass/Vol] 2.0 mg/dL Normal 1.7-2.3 [facility] Comment on above: Order Comment: Sana zuñiga Type: BLOOD SPECIMEN Ordering Facility: [facility] Address: [address] [place] [address] Performed By: #### 2 777-1, 78250-8, #### [facility] CLIA [id number] [address] [place] [address] [place] NUTRITIONon 11-04-2023 NUTRITION HNO ID: [id number] Author: SAURABH VAZQUEZ DTR Service: Nutrition Therapy Author Type: Dictionary Editor Type: Nutrition Filed: 11/04/2023 14:35 Note Text: NUTRITION THERAPY SENIOR ORAC[address] SQL DEVELOPER NOTE SERVICE DATE: 11/04/2023 SERVICE TIME: 1030 Visit Type: Length of Stay Evaluation Goals Met: Not Met Will monitor for diet advancement and nutritional needs as able. Plan of Care: Follow-Up: [facility] Reassessment Nursing Admission Assessment [...] November 04, 2023 TIME: 2:25 PM Normal [facility] Phosphate SerPl-mCncon 11-03 Phosphate [Mass/Vol] 2.6 mg/dL Low 2.7-4.8 [facility] Comment on above: Order Comment: Speci men Type: BLOOD SPECIMEN Ordering Facility: [facility] Address: [address] [place] [address] Performed By: #### 2 777-1, 71866-2, 91230-0 #### [facility] CLIA [id number] [address] [place] [address] [place] Valproate Free SerPl-mCncon 11-04-2023 Valproate Free [Mass/Vol] 11.3 ug/mL Normal 4.0-30.0 [facility] Comment on above: Order Comment: Speci men Type: BLOOD SPECIMENOrdering Facility: [facility] Address: [address] [place] [address] Result Comment: Refe rence ranges and high/low indicator flags are provided as general guidelines only. The treating physician must determine appropriate target levels/dosing based on the specific clinical situation. This test was developed and its performance characteristics determined by [facility] [place] (-[facility]). It has not been cleared or approved by the FDA. [facility] is regulated under CLIA as qualified to perform high-complexity testing. This test is used for clinical purposes. It should not be regarded as investigational or for research. Performed By: #### 4 087-3 ####[facility] [id number] [place] [address] [place] Valproate SerPl-mCncon 11-03 Valproate [Mass/Vol] 49.2 ug/mL Low 50.0-100.0 [facility] Comment on above: Order Comment: Speci men Type: BLOOD SPECIMEN Ordering Facility: [facility] Address: [address] [place] [address] Result Comment: Refe rence ranges and high/low indicator flags are provided as general guidelines only. The treating physician must determine appropriate target levels/dosing based on the specific clinical situation. Performed By: #### 2 4321-2, 34930-7, 2777-1 #### [facility] CLIA [id number] [address] [place] [address] [place] Basic metabolic 2000 panelon 11-03-2023 Anion gap [Moles/Vol] 11 mmol/L Normal 9-18 [facility] Comment on above: Order Comment: Speci men Type: BLOOD SPECIMEN Ordering Facility: [facility] Address: [address] [place] [address] Performed By: #### 2 777-1, 71258-1, #### [facility] CLIA [id number] [address] [place] [address] [place] Calcium [Mass/Vol] 7.7 mg/dL Low 8.5-10.2 [facility] Comment on above: Order Comment: Speci men Type: BLOOD SPECIMEN Ordering Facility: [facility] Address: [address] [place] [address] Performed By: #### 2 777-1, 03084-6, #### [facility] CLIA [id number] [address] [place] [address] [place] Chloride [Moles/Vol] 112 mmol/L High 97-105 [facility] Comment on above: Order Comment: Speci men Type: BLOOD SPECIMEN Ordering Facility: [facility] Address: [address] [place] [address] Performed By: #### 2 777-1, 33385-6, #### [facility] CLIA [id number] [address] [place], [place] [address] [place] CO2 [Moles/Vol] 22 mmol/L Normal 22-30 [facility] Comment on above: Order Comment: Sana zuñiga Type: BLOOD SPECIMEN Ordering Facility: [facility] Address: [address] [place] [address] Performed By: #### 2 777-1, 87821-3, #### [facility] CLIA [id number] [address] [place] [address] [place] Creatinine [Mass/Vol] 0.68 mg/dL Low 0.73-1.22 [facility] Comment on above: Order Comment: Speci men Type: BLOOD SPECIMEN Ordering Facility: [facility] Address: [address] [place] [address] Performed By: #### 2 777-1, 45507-0, #### [facility] CLIA [id number] [address] [place] [address] [place] Creatinine and Glomerular filtration rate.predicted panel (S/P/Bld) 127 mL/min/1.73m??? Normal >=60 [facility] Comment on above: Order Comment: Sana zuñiga Type: BLOOD SPECIMEN Ordering Facility: [facility] Address: [address] [place] [address] Result Comment: Lor mated Glomerular Filtration Rate [...] actual GFR. Performed By: #### 2 777-1, 78745-2, #### [facility] CLIA [id number] [address] [place] [address] [place] Glucose [Mass/Vol] 85 mg/dL Normal 74-99 [facility] Comment on above: Order Comment: Speci men Type: BLOOD SPECIMEN Ordering Facility: [facility] Address: [address] [place], [place] [id number] Result Comment: The [place] Diabetes Association (ADA) provides guidance for cutoff [...] Standards of Medical Care in Diabetes 2016, [place] [employer]. Diabetes Care. 2016.39(Suppl 1). Performed By: #### 2 777-1, 72954-1, #### [facility] CLIA [id number] [address] [place] [address] [place] Potassium [Moles/Vol] 3.4 mmol/L Low 3.7-5.1 [facility] Comment on above: Order Comment: Sana zuñiga Type: BLOOD SPECIMEN Ordering Facility: [facility] Address: [address] [place] [address] Performed By: #### 2 777-1, , #### [facility] CLIA [id number] [address] [place] [address] [place] Sodium [Moles/Vol] 145 mmol/L High 136-144 [facility] Comment on above: Order Comment: Sana zuñiga Type: BLOOD SPECIMEN Ordering Facility: [facility] Address: [address] [place] [address] Performed By: #### 2 777-1, , #### [facility] CLIA [id number] [address] [place] [address] [place] Urea nitrogen [Mass/Vol] 5 mg/dL Low 9-24 [facility] Comment on above: Order Comment: Speci men Type: BLOOD SPECIMEN Ordering Facility: [facility] Address: [address] [place] [address] Performed By: #### 2 777-1, 38379-8, 74110-4 #### [facility] CLIA [id number] [address] [place] [address] [place] CBC W Auto Differential pane l (Bld)on 11-03-2023 Basophils (Bld) [#/Vol] 10*3/uL Normal <0.11 [facility] Comment on above: Order Comment: Speci men Type: BLOOD SPECIMEN Ordering Facility: [facility] Address: [address] [place] [address] Performed By: #### 5 7021-8 #### [facility] CLIA [id number] [address] [place] [address] [place] Basophils/100 WBC (Bld) 0.3 % Normal [facility] Comment on above: Order Comment: Speci men Type: BLOOD SPECIMEN Ordering Facility: [facility] Address: [address] [place] [address] Performed By: #### 5 7021-8 #### [facility] CLIA [id number] [address] [place] [address] [place] Differential cell count method Nom (Bld) Auto Normal [facility] Comment on above: Order Comment: Speci men Type: BLOOD SPECIMEN Ordering Facility: [facility] Address: [address] [place] [address] Performed By: #### 5 7021-8 #### [facility] CLIA [id number] [address] [place] [address] [place] Eosinophils (Bld) [#/Vol] 0.25 10*3/uL Normal <0.46 [facility] Comment on above: Order Comment: Speci men Type: BLOOD SPECIMEN Ordering Facility: [facility] Address: [address] [place] [address] Performed By: #### 5 7021-8 #### [facility] CLIA [id number] [address] [place] [address] [place] Eosinophils/100 WBC (Bld) 3.1 % Normal [facility] Comment on above: Order Comment: Speci men Type: BLOOD SPECIMEN Ordering Facility: [facility] Address: [address] [place] [address] Performed By: #### 5 7021-8 #### [facility] CLIA [id number] [address] [place] [address] [place] Erythrocyte distribution width (RBC) [Ratio] 13.7 % Normal 11.5-15.0 [facility] Comment on above: Order Comment: Speci men Type: BLOOD SPECIMEN Ordering Facility: [facility] Address: [address] [place] [address] Performed By: #### 5 7021-8 #### [facility] CLIA [id number] [address] [place] [address] [place] Hematocrit (Bld) [Volume fraction] 29.9 % Low 39.0-51.0 [facility] Comment on above: Order Comment: Speci men Type: BLOOD SPECIMEN Ordering Facility: [facility] Address: [address] [place] [address] Performed By: #### 5 7021-8 #### [facility] CLIA [id number] [address] [place] [address] [place] Hemoglobin (Bld) [Mass/Vol] 9.4 g/dL Low 13.0-17.0 [facility] Comment on above: Order Comment: Speci men Type: BLOOD SPECIMEN Ordering Facility: [facility] Address: [address] [place] [address] Performed By: #### 5 7021-8 #### [facility] CLIA [id number] [address] [place] [address] [place] Immature granulocytes (Bld) [#/Vol] 0.11 10*3/uL High <0.10 [facility] Comment on above: Order Comment: Speci men Type: BLOOD SPECIMEN Ordering Facility: [facility] Address: [address] [place] [address] Performed By: #### 5 7021-8 #### [facility] CLIA [id number] [address] [place] [address] [place] Immature granulocytes/100 WBC (Bld) 1.4 % Normal [facility] Comment on above: Order Comment: Speci men Type: BLOOD SPECIMEN Ordering Facility: [facility] Address: [address] [place] [address] Performed By: #### 5 7021-8 #### [facility] CLIA [id number] [address] [place] [address] [place] Lymphocytes (Bld) [#/Vol] 2.03 10*3/uL Normal 1.00-4.00 [facility] Comment on above: Order Comment: Speci men Type: BLOOD SPECIMEN Ordering Facility: [facility] Address: [address] [place] [address] Performed By: #### 5 7021-8 #### [facility] CLIA [id number] [address] [place] [address] [place] Lymphocytes/100 WBC (Bld) 25.4 % Normal [facility] Comment on above: Order Comment: Speci men Type: BLOOD SPECIMEN Ordering Facility: [facility] Address: [address] [place] [address] Performed By: #### 5 7021-8 #### [facility] CLIA [id number] [address] [place] [address] [place] MCH (RBC) [Entitic mass] 26.5 pg Normal 26.0-34.0 [facility] Comment on above: Order Comment: Speci men Type: BLOOD SPECIMEN Ordering Facility: [facility] Address: [address] [place] [address] Performed By: #### 5 7021-8 #### [facility] CLIA [id number] [address] [place] [address] [place] MCHC (RBC) [Mass/Vol] 31.4 g/dL Normal 30.5-36.0 [facility] Comment on above: Order Comment: Speci men Type: BLOOD SPECIMEN Ordering Facility: [facility] Address: [address] [place] [address] Performed By: #### 5 7021-8 #### [facility] CLIA [id number] [address] [place] [address] [place] MCV (RBC) [Entitic vol] 84.2 fL Normal 80.0-100.0 [facility] Comment on above: Order Comment: Speci men Type: BLOOD SPECIMEN Ordering Facility: [facility] Address: [address] [place] [address] Performed By: #### 5 7021-8 #### [facility] CLIA [id number] [address] [place] [address] [place] Monocytes (Bld) [#/Vol] 0.62 10*3/uL Normal <0.87 [facility] Comment on above: Order Comment: Speci men Type: BLOOD SPECIMEN Ordering Facility: [facility] Address: [address] [place] [address] Performed By: #### 5 7021-8 #### [facility] CLIA [id number] [address] [place] [address] [place] Monocytes/100 WBC (Bld) 7.8 % Normal [facility] Comment on above: Order Comment: Speci men Type: BLOOD SPECIMEN Ordering Facility: [facility] Address: [address] [place] [address] Performed By: #### 5 7021-8 #### [facility] CLIA [id number] [address] [place] [address] [place] Neutrophils (Bld) [#/Vol] 4.96 10*3/uL Normal 1.45-7.50 [facility] Comment on above: Order Comment: Speci men Type: BLOOD SPECIMEN Ordering Facility: [facility] Address: [address] [place] [address] Performed By: #### 5 7021-8 #### [facility] CLIA [id number] [address] [place] [address] [place] Neutrophils/100 WBC (Bld) 62.0 % Normal [facility] Comment on above: Order Comment: Speci men Type: BLOOD SPECIMEN Ordering Facility: [facility] Address: [address] [place] [address] Performed By: #### 5 7021-8 #### [facility] CLIA [id number] [address] [place] [address] [place] Nucleated RBC (Bld) [#/Vol] 10*3/uL Normal <0.01 [facility] Comment on above: Order Comment: Speci men Type: BLOOD SPECIMEN Ordering Facility: [facility] Address: [address] [place] [address] Performed By: #### 5 7021-8 #### [facility] CLIA [id number] [address] [place] [address] [place] Nucleated RBC/100 WBC (Bld) [Ratio] 0.0 /100 WBC Normal [facility] Comment on above: Order Comment: Speci men Type: BLOOD SPECIMEN Ordering Facility: [facility] Address: [address] [place] [address] Performed By: #### 5 7021-8 #### [facility] CLIA [id number] [address] [place] [address] [place] Platelet mean volume (Bld) [Entitic vol] 9.3 fL Normal 9.0-12.7 [facility] Comment on above: Order Comment: Speci men Type: BLOOD SPECIMEN Ordering Facility: [facility] Address: [address] [place] [address] Performed By: #### 5 7021-8 #### [facility] CLIA [id number] [address] [place] [address] [place] Platelets (Bld) [#/Vol] 208 10*3/uL Normal 150-400 [facility] Comment on above: Order Comment: Speci men Type: BLOOD SPECIMEN Ordering Facility: [facility] Address: [address] [place] [address] Performed By: #### 5 7021-8 #### [facility] CLIA [id number] [address] [place] [address] [place] RBC (Bld) [#/Vol] 3.55 10*6/uL Low 4.20-6.00 [facility] Comment on above: Order Comment: Speci men Type: BLOOD SPECIMEN Ordering Facility: [facility] Address: [address] [place] [address] Performed By: #### 5 7021-8 #### [facility] CLIA [id number] [address] [place] [address] [place] WBC (Bld) [#/Vol] 7.99 10*3/uL Normal 3.70-11.00 [facility] Comment on above: Order Comment: Speci men Type: BLOOD SPECIMEN Ordering Facility: [facility] Address: [address] [place] [address] Performed By: #### 5 7021-8 #### [facility] CLIA [id number] [address] [place] [address] [place] CONSULTon 11-03-2023 CONSULT HNO ID: [id number] Author: CK HU MD Service: Neurology General [...] (DULCOLAX) 10 mg RECTAL DAILY phenol 1 Reynolds (CHLORASEPTIC) 1 Reynolds MUCOUS MEMBRANE (TOPICAL MOUTH AND THROAT) q 2 H PRN Or benzocaine-menthol 1 Lozenge (CHLORASEPTIC) 1 Lozenge MUCOUS MEMBRANE (TOPICAL MOUTH AND THROAT) q 2 H PRN clomiPRAMINE 75 mg cap(s) (ANAFRANIL) 75 mg ORAL AT BEDTIME lithium carbonate 300 mg cap(s) (ESKALITH) 300 mg ORAL BID sertraline (ZOLOFT (more content not included)... Normal [facility] CT BRAIN WO IVCONon 11-03-19 CT BRAIN WO IVCON * * *Final Report* * * DATE OF EXAM: Nov 03 2023 7:42PM [place] 0504 - CT BRAIN WO IVCON / [...] reduction techniques were required COMPARISON: None. RESULT: Collator Hand (topogram) images: No additional findings. Post-operative change: [...] clear evidence of an acute abnormality. Oracle Database Developer: PSCB Transcribe Date/Time: Nov 03 2023 7:43P Dictated by : HERMAN DOWD MD This examination was interpreted and the report reviewed and electronically signed by: HERMAN DOWD MD on Nov 03 2023 7:44PM EST [id number] N Normal [facility] Jones, Bld SerPl-sCncon Jones [Moles/Vol] 0.5 mmol/L Low 0.6-1.2 [facility] Comment on above: Order Comment: Specdeshawn zuñiga Type: BLOOD SPECIMEN Ordering Facility: [facility] Address: [address] [place] [address] Result Comment: Refe rence ranges and high/low indicator flags are provided as general guidelines only. The treating physician must determine appropriate target levels/dosing based on the specific clinical situation. Performed By: #### 1 4334-7, 4086-5 #### [facility] CLIA [id number] [address] [place] [address] [place] Magnesium SerPl-mCncon 11-02 Magnesium [Mass/Vol] 2.2 mg/dL Normal 1.7-2.3 [facility] Comment on above: Order Comment: Sana zuñiga Type: BLOOD SPECIMEN Ordering Facility: [facility] Address: [address] [place] [address] Performed By: #### 2 777-1, 01012-8, 31454-1 #### [facility] CLIA [id number] [address] [place] [address] [place] Phosphate SerPl-mCncon 11-02 Phosphate [Mass/Vol] 2.5 mg/dL Low 2.7-4.8 [facility] Comment on above: Order Comment: Sana zuñiga Type: BLOOD SPECIMEN Ordering Facility: [facility] Address: [address] [place] [address] Performed By: #### 2 777-1, 79497-7, 48882-4 #### [facility] CLIA [id number] [address] [place] [address] [place] THERAPY NTon 11-03-2023 THERAPY NT HNO ID: [id number] Author: ANKITA BLACKBURN PT, DPT Service: Physical Therapy Author Type: Physical Therapist Type: Therapy (PT/OT/Speech/Resp) Filed: 11/03/2023 13:48 Note Text: PHYSICAL THERAPY MISSED VISIT SERVICE DATE: 11/03/2023 SERVICE TIME: [facility] ROOM: [place] [address] Patient not seen due to Patient Not Available. Another service at bedside upon time of arrival x2 attempts. Will follow up as able/appropriate. SIGNATURE: Ankita Blackburn PT, DPT PATIENT NAME: Johnny Devine DATE: November 03, 2023 TIME: 1:48 PM Normal [facility] Valproate SerPl-mCncon 11-02 Valproate [Mass/Vol] 53.0 ug/mL Normal 50.0-100.0 [facility] Comment on above: Order Comment: Sana zuñiga Type: BLOOD SPECIMEN Ordering Facility: [facility] Address: [address] [place] [address] Result Comment: Refe rence ranges and high/low indicator flags are provided as general guidelines only. The treating physician must determine appropriate target levels/dosing based on the specific clinical situation. Performed By: #### 1 4334-7, 4086-5 #### [facility] CLIA [id number] [address] [place] [address] [place] Basic metabolic 2000 panelon 11-02-2023 Anion gap [Moles/Vol] 8 mmol/L Low 9-18 [facility] Comment on above: Order Comment: Speci men Type: BLOOD SPECIMEN Ordering Facility: [facility] Address: [address] [place], [place] [address] Performed By: #### 2 777-1, 78855-9, #### [facility] CLIA [id number] [address] [place], [place] [address] [place] Calcium [Mass/Vol] 7.7 mg/dL Low 8.5-10.2 [facility] Comment on above: Order Comment: Speci men Type: BLOOD SPECIMEN Ordering Facility: [facility] Address: [address] [place] [address] Performed By: #### 2 777-1, 45291-7, #### [facility] CLIA [id number] [address] [place] [address] [place] Chloride [Moles/Vol] 109 mmol/L High 97-105 [facility] Comment on above: Order Comment: Speci men Type: BLOOD SPECIMEN Ordering Facility: [facility] Address: [address] [place] [address] Performed By: #### 2 777-1, 22714-4, #### [facility] CLIA [id number] [address] [place] [address] [place] CO2 [Moles/Vol] 24 mmol/L Normal 22-30 [facility] Comment on above: Order Comment: Speci men Type: BLOOD SPECIMEN Ordering Facility: [facility] Address: [address] [place] [address] Performed By: #### 2 777-1, 76016-9, #### [facility] CLIA [id number] [address] [place] [address] [place] Creatinine [Mass/Vol] 0.66 mg/dL Low 0.73-1.22 [facility] Comment on above: Order Comment: Speci men Type: BLOOD SPECIMEN Ordering Facility: [facility] Address: [address] [place] [address] Performed By: #### 2 777-1, 45364-1, 44070-6 #### [facility] CLIA [id number] [address] [place] [address] [place] Creatinine and Glomerular filtration rate.predicted panel (S/P/Bld) 129 mL/min/1.73m??? Normal >=60 [facility] Comment on above: Order Comment: Sana zuñiga Type: BLOOD SPECIMEN Ordering Facility: [facility] Address: [address] [place] [address] Result Comment: Lor mated Glomerular Filtration Rate [...] actual GFR. Performed By: #### 2 777-1, 32333-4, #### [facility] CLIA [id number] [address] [place] [address] [place] Glucose [Mass/Vol] 109 mg/dL High 74-99 [facility] Comment on above: Order Comment: Sana zuñiga Type: BLOOD SPECIMEN Ordering Facility: [facility] Address: [address] [place] [address] Result Comment: The [place] Diabetes Association (ADA) provides guidance for cutoff [...] Standards of Medical Care in Diabetes 2016, [place] [employer]. Diabetes Care. 2016.39(Suppl 1). Performed By: #### 2 777-1, 00842-7, #### [facility] CLIA [id number] [address] [place] [address] [place] Potassium [Moles/Vol] 3.5 mmol/L Low 3.7-5.1 [facility] Comment on above: Order Comment: Speci men Type: BLOOD SPECIMEN Ordering Facility: [facility] Address: [address] [place] [address] Performed By: #### 2 777-1, 49444-6, #### [facility] CLIA [id number] [address] [place] [address] [place] Sodium [Moles/Vol] 141 mmol/L Normal 136-144 [facility] Comment on above: Order Comment: Speci men Type: BLOOD SPECIMEN Ordering Facility: [facility] Address: [address] [place] [address] Performed By: #### 2 777-1, 80455-2, #### [facility] CLIA [id number] [address] [place] [address] [place] Urea nitrogen [Mass/Vol] 7 mg/dL Low 9-24 [facility] Comment on above: Order Comment: Speci men Type: BLOOD SPECIMEN Ordering Facility: [facility] Address: [address] [place] [address] Performed By: #### 2 777-1, 12620-6, #### [facility] CLIA [id number] [address] [place], [place] [address] [place] CBC W Auto Differential pane l (Bld)on 11-02-2023 Basophils (Bld) [#/Vol] 0.04 10*3/uL Normal <0.11 [facility] Comment on above: Order Comment: Speci men Type: BLOOD SPECIMEN Ordering Facility: [facility] Address: [address] [place] [address] Performed By: #### 2 4321-2, , 2776-08 #### [facility] CLIA [id number] [address] [place] [address] [place] Basophils/100 WBC (Bld) 0.5 % Normal [facility] Comment on above: Order Comment: Speci men Type: BLOOD SPECIMEN Ordering Facility: [facility] Address: [address] [place] [address] Performed By: #### 2 4321-2, , 2776-08 #### [facility] CLIA [id number] [address] [place] [address] [place] Differential cell count method Nom (Bld) Auto Normal [facility] Comment on above: Order Comment: Speci men Type: BLOOD SPECIMEN Ordering Facility: [facility] Address: [address] [place] [address] Performed By: #### 2 432-2, , 2776-08 #### [facility] CLIA [id number] [address] [place] [address] [place] Eosinophils (Bld) [#/Vol] 0.24 10*3/uL Normal <0.46 [facility] Comment on above: Order Comment: Speci men Type: BLOOD SPECIMEN Ordering Facility: [facility] Address: [address] [place] [address] Performed By: #### 2 4321-2, , 2776-08 #### [facility] CLIA [id number] [address] [place] [address] [place] Eosinophils/100 WBC (Bld) 3.0 % Normal [facility] Comment on above: Order Comment: Speci men Type: BLOOD SPECIMEN Ordering Facility: [facility] Address: [address] [place] [address] Performed By: #### 2 4321-2, , 2776-08 #### [facility] CLIA [id number] [address] [place] [address] [place] Erythrocyte distribution width (RBC) [Ratio] 14.0 % Normal 11.5-15.0 [facility] Comment on above: Order Comment: Speci men Type: BLOOD SPECIMEN Ordering Facility: [facility] Address: [address] [place] [address] Performed By: #### 2 4321-2, , 2776-08 #### [facility] CLIA [id number] [address] [place] [address] [place] Hematocrit (Bld) [Volume fraction] 36.5 % Low 39.0-51.0 [facility] Comment on above: Order Comment: Speci men Type: BLOOD SPECIMEN Ordering Facility: [facility] Address: [address] [place] [address] Performed By: #### 2 4321-2, , 2776-08 #### [facility] CLIA [id number] [address] [place] [address] [place] Hemoglobin (Bld) [Mass/Vol] 11.2 g/dL Low 13.0-17.0 [facility] Comment on above: Order Comment: Speci men Type: BLOOD SPECIMEN Ordering Facility: [facility] Address: [address] [place] [address] Performed By: #### 2 4321-2, , 2776-08 #### [facility] CLIA [id number] [address] [place] [address] [place] Immature granulocytes (Bld) [#/Vol] 0.10 10*3/uL High <0.10 [facility] Comment on above: Order Comment: Speci men Type: BLOOD SPECIMEN Ordering Facility: [facility] Address: [address] [place] [address] Performed By: #### 2 4321-2, , 2776-08 #### [facility] CLIA [id number] [address] [place] [address] [place] Immature granulocytes/100 WBC (Bld) 1.3 % Normal [facility] Comment on above: Order Comment: Speci men Type: BLOOD SPECIMEN Ordering Facility: [facility] Address: [address] [place] [address] Performed By: #### 2 4321-2, , 2776-08 #### [facility] CLIA [id number] [address] [place] [address] [place] Lymphocytes (Bld) [#/Vol] 1.78 10*3/uL Normal 1.00-4.00 [facility] Comment on above: Order Comment: Speci men Type: BLOOD SPECIMEN Ordering Facility: [facility] Address: [address] [place] [address] Performed By: #### 2 432-2, , 2776-08 #### [facility] CLIA [id number] [address] [place] [address] [place] Lymphocytes/100 WBC (Bld) 22.3 % Normal [facility] Comment on above: Order Comment: Speci men Type: BLOOD SPECIMEN Ordering Facility: [facility] Address: [address] [place] [address] Performed By: #### 2 4321-2, , 2776-08 #### [facility] CLIA [id number] [address] [place] [address] [place] MCH (RBC) [Entitic mass] 26.2 pg Normal 26.0-34.0 [facility] Comment on above: Order Comment: Speci men Type: BLOOD SPECIMEN Ordering Facility: [facility] Address: [address] [place] [address] Performed By: #### 2 4321-2, , 2776-08 #### [facility] CLIA [id number] [address] [place] [address] [place] MCHC (RBC) [Mass/Vol] 30.7 g/dL Normal 30.5-36.0 [facility] Comment on above: Order Comment: Speci men Type: BLOOD SPECIMEN Ordering Facility: [facility] Address: [address] [place] [address] Performed By: #### 2 4321-2, , 2776-08 #### [facility] CLIA [id number] [address] [place] [address] [place] MCV (RBC) [Entitic vol] 85.5 fL Normal 80.0-100.0 [facility] Comment on above: Order Comment: Speci men Type: BLOOD SPECIMEN Ordering Facility: [facility] Address: [address] [place] [address] Performed By: #### 2 4321-2, , 2776-08 #### [facility] CLIA [id number] [address] [place] [address] [place] Monocytes (Bld) [#/Vol] 0.58 10*3/uL Normal <0.87 [facility] Comment on above: Order Comment: Speci men Type: BLOOD SPECIMEN Ordering Facility: [facility] Address: [address] [place] [address] Performed By: #### 2 4321-2, , 2776-08 #### [facility] CLIA [id number] [address] [place] [address] [place] Monocytes/100 WBC (Bld) 7.3 % Normal [facility] Comment on above: Order Comment: Speci men Type: BLOOD SPECIMEN Ordering Facility: [facility] Address: [address] [place] [address] Performed By: #### 2 4321-2, , 2776-08 #### [facility] CLIA [id number] [address] [place] [address] [place] Neutrophils (Bld) [#/Vol] 5.24 10*3/uL Normal 1.45-7.50 [facility] Comment on above: Order Comment: Speci men Type: BLOOD SPECIMEN Ordering Facility: [facility] Address: [address] [place] [address] Performed By: #### 2 4321-2, , 2776-08 #### [facility] CLIA [id number] [address] [place] [address] [place] Neutrophils/100 WBC (Bld) 65.6 % Normal [facility] Comment on above: Order Comment: Speci men Type: BLOOD SPECIMEN Ordering Facility: [facility] Address: [address] [place] [address] Performed By: #### 2 4321-2, , 2776-08 #### [facility] CLIA [id number] [address] [place] [address] [place] Nucleated RBC (Bld) [#/Vol] 10*3/uL Normal <0.01 [facility] Comment on above: Order Comment: Speci men Type: BLOOD SPECIMEN Ordering Facility: [facility] Address: [address] [place] [address] Performed By: #### 2 4321-2, , 2776-08 #### [facility] CLIA [id number] [address] [place] [address] [place] Nucleated RBC/100 WBC (Bld) [Ratio] 0.0 /100 WBC Normal [facility] Comment on above: Order Comment: Speci men Type: BLOOD SPECIMEN Ordering Facility: [facility] Address: [address] [place] [address] Performed By: #### 2 4321-2, , 2776-08 #### [facility] CLIA [id number] [address] [place] [address] [place] Platelet mean volume (Bld) [Entitic vol] 9.7 fL Normal 9.0-12.7 [facility] Comment on above: Order Comment: Speci men Type: BLOOD SPECIMEN Ordering Facility: [facility] Address: [address] [place] [address] Performed By: #### 2 4321-2, , 2776-08 #### [facility] CLIA [id number] [address] [place] [address] [place] Platelets (Bld) [#/Vol] 199 10*3/uL Normal 150-400 [facility] Comment on above: Order Comment: Speci men Type: BLOOD SPECIMEN Ordering Facility: [facility] Address: [address] [place] [address] Performed By: #### 2 4321-2, , 2776-08 #### [facility] CLIA [id number] [address] [place] [address] [place] RBC (Bld) [#/Vol] 4.27 10*6/uL Normal 4.20-6.00 [facility] Comment on above: Order Comment: Speci men Type: BLOOD SPECIMEN Ordering Facility: [facility] Address: [address] [place] [address] Performed By: #### 2 4321-2, , 2776-08 #### [facility] CLIA [id number] [address] [place] [address] [place] WBC (Bld) [#/Vol] 7.98 10*3/uL Normal 3.70-11.00 [facility] Comment on above: Order Comment: Speci men Type: BLOOD SPECIMEN Ordering Facility: [facility] Address: [address] [place] [address] Performed By: #### 2 4321-2, , 2776-08 #### [facility] CLIA [id number] [address] [place] [address] [place] Magnesium SerPl-mCncon 11-01 Magnesium [Mass/Vol] 2.3 mg/dL Normal 1.7-2.3 [facility] Comment on above: Order Comment: Speci men Type: BLOOD SPECIMEN Ordering Facility: [facility] Address: [address] [place] [address] Performed By: #### 2 777-1, 33586-4, 28081-9 #### [facility] CLIA [id number] [address] [place] [address] [place] Phosphate SerPl-mCncon 11-01 Phosphate [Mass/Vol] 2.6 mg/dL Low 2.7-4.8 [facility] Comment on above: Order Comment: Speci yogesh Type: BLOOD SPECIMEN Ordering Facility: [facility] Address: [address] [place] [address] Performed By: #### 2 777-1, 16998-5, 68998-3 #### [facility] CLIA [id number] [address] [place] [address] [place] XR ABDOMEN 1V [...] bowel. Findings suggestive of improving ileus. Oracle Database Developer: [email or web address] Transcribe Date/Time: Nov 02 2023 11:50A Dictated by : VERONICA CARTER MD This examination was interpreted and the report reviewed and electronically signed by: VERONICA CARTER MD on Nov 02 2023 11:52AM EST [id number] Normal [facility] Basic metabolic 2000 panelon 11-01-2023 Anion gap [Moles/Vol] 10 mmol/L Normal 9-18 [facility] Comment on above: Order Comment: Speci men Type: BLOOD SPECIMEN Ordering Facility: [facility] Address: [address] [place] [address] Performed By: #### 5 7021-8 #### [facility] CLIA [id number] [address] [place] [address] [place] Calcium [Mass/Vol] 7.9 mg/dL Low 8.5-10.2 [facility] Comment on above: Order Comment: Speci men Type: BLOOD SPECIMEN Ordering Facility: [facility] Address: [address] [place] [address] Performed By: #### 5 7021-8 #### [facility] CLIA [id number] [address] [place] [address] [place] Chloride [Moles/Vol] 114 mmol/L High 97-105 [facility] Comment on above: Order Comment: Speci men Type: BLOOD SPECIMEN Ordering Facility: [facility] Address: [address] [place] [address] Performed By: #### 5 7021-8 #### [facility] CLIA [id number] [address] [place] [address] [place] CO2 [Moles/Vol] 22 mmol/L Normal 22-30 [facility] Comment on above: Order Comment: Speci men Type: BLOOD SPECIMEN Ordering Facility: [facility] Address: [address] [place] [address] Performed By: #### 5 7021-8 #### [facility] CLIA [id number] [address] [place] [address] [place] Creatinine [Mass/Vol] 0.74 mg/dL Normal 0.73-1.22 [facility] Comment on above: Order Comment: Sana zuñiga Type: BLOOD SPECIMEN Ordering Facility: [facility] Address: [address] [place] [address] Performed By: #### 5 7021-8 #### [facility] CLIA [id number] [address] [place] [address] [place] Creatinine and Glomerular filtration rate.predicted panel (S/P/Bld) 124 mL/min/1.73m??? Normal >=60 [facility] Comment on above: Order Comment: Sana zuñiga Type: BLOOD SPECIMEN Ordering Facility: [facility] Address: [address] [place] [address] Result Comment: Lor mated Glomerular Filtration Rate [...] GFR. Performed By: #### 5 7021-8 #### [facility] CLIA [id number] [address] [place] [address] [place] Glucose [Mass/Vol] 98 mg/dL Normal 74-99 [facility] Comment on above: Order Comment: Sana zuñiga Type: BLOOD SPECIMEN Ordering Facility: [facility] Address: [address] [place] [address] Result Comment: The [place] [employer] (ADA) provides guidance for cutoff [...] Standards of Medical Care in Diabetes 2016, [place] [employer]. Diabetes Care. 2016.39(Suppl 1). Performed By: #### 5 7021-8 #### [facility] CLIA [id number] [address] [place] [address] [place] Potassium [Moles/Vol] 3.9 mmol/L Normal 3.7-5.1 [facility] Comment on above: Order Comment: Speci men Type: BLOOD SPECIMEN Ordering Facility: [facility] Address: [address] [place] [address] Performed By: #### 5 7021-8 #### [facility] CLIA [id number] [address] [place] [address] [place] Sodium [Moles/Vol] 146 mmol/L High 136-144 [facility] Comment on above: Order Comment: Speci men Type: BLOOD SPECIMEN Ordering Facility: [facility] Address: [address] [place] [address] Performed By: #### 5 7021-8 #### [facility] CLIA [id number] [address] [place] [address] [place] Urea nitrogen [Mass/Vol] 9 mg/dL Normal 9-24 [facility] Comment on above: Order Comment: Speci men Type: BLOOD SPECIMEN Ordering Facility: [facility] Address: [address] [place] [address] Performed By: #### 5 7021-8 #### [facility] CLIA [id number] [address] [place] [address] [place] CBC W Auto Differential pane l (Bld)on 11-01-2023 Basophils (Bld) [#/Vol] 10*3/uL Normal <0.11 [facility] Comment on above: Order Comment: Speci men Type: BLOOD SPECIMENOrdering Facility: [facility] Address: [address] [place] [address] Performed By: #### 5 7021-8 ####[facility] [id number] [place] [address] [place] Basophils/100 WBC (Bld) 0.3 % Normal [facility] [facility] Comment on above: Order Comment: Speci men Type: BLOOD SPECIMENOrdering Facility: [facility] Address: [address] [place] [address] Performed By: #### 5 7021-8 ####[facility]CL[facility] [id number] [place] [address] [place] Differential cell count method Nom (Bld) Auto Normal [facility] Comment on above: Order Comment: Speci men Type: BLOOD SPECIMENOrdering Facility: [facility] Address: [address] [place] [address] Performed By: #### 5 7021-8 ####[facility]CL[facility] [id number] [place] [address] [place] Eosinophils (Bld) [#/Vol] 0.23 10*3/uL Normal <0.46 [facility] Comment on above: Order Comment: Speci men Type: BLOOD SPECIMENOrdering Facility: [facility] Address: [address] [place] [address] Performed By: #### 5 7021-8 ####[facility]CL[facility] [id number] [place] [address] [place] Eosinophils/100 WBC (Bld) 3.0 % Normal [facility] Comment on above: Order Comment: Speci men Type: BLOOD SPECIMENOrdering Facility: [facility] Address: [address] [place] [address] Performed By: #### 5 7021-8 ####[facility]CL[facility] [id number] [place] [address] [place] Erythrocyte distribution width (RBC) [Ratio] 14.6 % Normal 11.5-15.0 [facility] Comment on above: Order Comment: Speci men Type: BLOOD SPECIMENOrdering Facility: [facility] Address: [address] [place] [address] Performed By: #### 5 7021-8 ####[facility]CL[facility] [id number] [place] [address] [place] Hematocrit (Bld) [Volume fraction] 28.6 % Low 39.0-51.0 [facility] Comment on above: Order Comment: Speci men Type: BLOOD SPECIMENOrdering Facility: [facility] Address: [address] [place] [address] Performed By: #### 5 7021-8 ####[facility] LABIA [id number] [place] [address] [place] Hemoglobin (Bld) [Mass/Vol] 9.0 g/dL Low 13.0-17.0 [facility] Comment on above: Order Comment: Speci men Type: BLOOD SPECIMENOrdering Facility: [facility] Address: [address] [place] [address] Performed By: #### 5 7021-8 ####[facility] LABIA [id number] [place] [address] [place] Immature granulocytes (Bld) [#/Vol] 0.05 10*3/uL Normal <0.10 [facility] Comment on above: Order Comment: Speci men Type: BLOOD SPECIMENOrdering Facility: [facility] Address: [address] [place] [address] Performed By: #### 5 7021-8 ####[facility] LABIA [id number] [place] [address] [place] Immature granulocytes/100 WBC (Bld) 0.7 % Normal [facility] Comment on above: Order Comment: Speci men Type: BLOOD SPECIMENOrdering Facility: [facility] Address: [address] [place] [address] Performed By: #### 5 7021-8 ####[facility] LABIA [id number] [place] [address] [place] Lymphocytes (Bld) [#/Vol] 1.86 10*3/uL Normal 1.00-4.00 [facility] Comment on above: Order Comment: Speci men Type: BLOOD SPECIMENOrdering Facility: [facility] Address: [address] [place] [address] Performed By: #### 5 7021-8 ####[facility] LABIA [id number] [place] [address] [place] Lymphocytes/100 WBC (Bld) 24.3 % Normal [facility] Comment on above: Order Comment: Speci men Type: BLOOD SPECIMENOrdering Facility: [facility] Address: [address] [place] [address] Performed By: #### 5 7021-8 ####[facility] LABIA [id number] [place] [address] [place] MCH (RBC) [Entitic mass] 26.8 pg Normal 26.0-34.0 [facility] Comment on above: Order Comment: Speci men Type: BLOOD SPECIMENOrdering Facility: [facility] Address: [address] [place] [address] Performed By: #### 5 7021-8 ####[facility] LABIA [id number] [place] [address] [place] MCHC (RBC) [Mass/Vol] 31.5 g/dL Normal 30.5-36.0 [facility] Comment on above: Order Comment: Speci men Type: BLOOD SPECIMENOrdering Facility: [facility] Address: [address] [place] [address] Performed By: #### 5 7021-8 ####[facility] LABIA [id number] [place] [address] [place] MCV (RBC) [Entitic vol] 85.1 fL Normal 80.0-100.0 [facility] Comment on above: Order Comment: Speci men Type: BLOOD SPECIMENOrdering Facility: [facility] Address: [address] [place] [address] Performed By: #### 5 7021-8 ####[facility] LABCLIA [id number] [place] [address] [place] Monocytes (Bld) [#/Vol] 0.62 10*3/uL Normal <0.87 [facility] Comment on above: Order Comment: Speci men Type: BLOOD SPECIMENOrdering Facility: [facility] Address: [address] [place] [address] Performed By: #### 5 7021-8 ####[facility]CLIA [id number] [place] [address] [place] Monocytes/100 WBC (Bld) 8.1 % Normal [facility] Comment on above: Order Comment: Speci men Type: BLOOD SPECIMENOrdering Facility: [facility] Address: [address] [place] [address] Performed By: #### 5 7021-8 ####[facility] LABCLIA [id number] [place] [address] [place] Neutrophils (Bld) [#/Vol] 4.87 10*3/uL Normal 1.45-7.50 [facility] Comment on above: Order Comment: Speci men Type: BLOOD SPECIMENOrdering Facility: [facility] Address: [address] [place] [address] Performed By: #### 5 7021-8 ####[facility] LABCLIA [id number] [place] [address] [place] Neutrophils/100 WBC (Bld) 63.6 % Normal [facility] Comment on above: Order Comment: Speci men Type: BLOOD SPECIMENOrdering Facility: [facility] Address: [address] [place] [address] Performed By: #### 5 7021-8 ####[facility]CLIA [id number] [place] [address] [place] Nucleated RBC (Bld) [#/Vol] 10*3/uL Normal <0.01 [facility] Comment on above: Order Comment: Speci men Type: BLOOD SPECIMENOrdering Facility: [facility] Address: [address] [place] [address] Performed By: #### 5 7021-8 ####[facility]CLIA [id number] [place] [address] [place] Nucleated RBC/100 WBC (Bld) [Ratio] 0.0 /100 WBC Normal [facility] Comment on above: Order Comment: Speci men Type: BLOOD SPECIMENOrdering Facility: [facility] Address: [address] [place] [address] Performed By: #### 5 7021-8 ####[facility]CLIA [id number] [place] [address] [place] Platelet mean volume (Bld) [Entitic vol] 9.6 fL Normal 9.0-12.7 [facility] Comment on above: Order Comment: Speci men Type: BLOOD SPECIMENOrdering Facility: [facility] Address: [address] [place] [address] Performed By: #### 5 7021-8 ####[facility] LABIA [id number] [place] [address] [place] Platelets (Bld) [#/Vol] 148 10*3/uL Low 150-400 [facility] Comment on above: Order Comment: Speci men Type: BLOOD SPECIMENOrdering Facility: [facility] Address: [address] [place] [address] Performed By: #### 5 7021-8 ####[facility] LABCLIA [id number] [place] [address] [place] RBC (Bld) [#/Vol] 3.36 10*6/uL Low 4.20-6.00 [facility] Comment on above: Order Comment: Speci men Type: BLOOD SPECIMENOrdering Facility: [facility] Address: [address] [place] [address] Performed By: #### 5 7021-8 ####[facility] LABCLIA [id number] [place] [address] [place] WBC (Bld) [#/Vol] 7.65 10*3/uL Normal 3.70-11.00 [facility] Comment on above: Order Comment: Speci men Type: BLOOD SPECIMENOrdering Facility: [facility] Address: [address] [place] [address] Performed By: #### 5 7021-8 ####[facility] LABCLIA [id number] [place] [address] [place] Magnesium SerPl-mCncon 10-31 Magnesium [Mass/Vol] 2.4 mg/dL High 1.7-2.3 [facility] Comment on above: Order Comment: Speci men Type: BLOOD SPECIMEN [facility] Address: [address] [place] [address] Performed By: #### 5 7021-8 #### [facility] CLIA [id number] [address] [place] [address] [place] Phosphate SerPl-mCncon 10-31 Phosphate [Mass/Vol] 2.3 mg/dL Low 2.7-4.8 [facility] Comment on above: Order Comment: Speci men Type: BLOOD SPECIMEN [facility] Address: [address] [place] [address] Performed By: #### 5 7021-8 #### [facility] CLIA [id number] [address] [place] [address] [place] Basic metabolic 2000 panelon 10-31-2023 Anion gap [Moles/Vol] 10 mmol/L Normal 9-18 [facility] Comment on above: Order Comment: Speci men Type: BLOOD SPECIMEN [facility] Address: [address] [place] [address] Performed By: #### 2 777-1, 98794-8, #### [facility] CLIA [id number] [address] [place] [address] [place] Calcium [Mass/Vol] 7.8 mg/dL Low 8.5-10.2 [facility] Comment on above: Order Comment: Speci men Type: BLOOD SPECIMEN [facility] Address: [address] [place] [address] Performed By: #### 2 777-1, 68414-5, #### [facility] CLIA [id number] [address] [place] [address] [place] Chloride [Moles/Vol] 115 mmol/L High 97-105 [facility] Comment on above: Order Comment: Speci men Type: BLOOD SPECIMEN [facility] Address: [address] [place], [place] [address] Performed By: #### 2 777-1, 92360-9, #### [facility] CLIA [id number] [address] [place] [address] [place] CO2 [Moles/Vol] 23 mmol/L Normal 22-30 [facility] Comment on above: Order Comment: Speci men Type: BLOOD SPECIMEN [facility] Address: [address] [place], [place] [address] Performed By: #### 2 777-1, 70051-4, #### [facility] CLIA [id number] [address] [place] [address] [place] Creatinine [Mass/Vol] 0.72 mg/dL Low 0.73-1.22 [facility] Comment on above: Order Comment: Speci men Type: BLOOD SPECIMEN [facility] Address: [address] [place] [address] Performed By: #### 2 777-1, 46416-5, #### [facility] CLIA [id number] [address] [place] [address] [place] Creatinine and Glomerular filtration rate.predicted panel (S/P/Bld) 125 mL/min/1.73m??? Normal >=60 [facility] Comment on above: Order Comment: Sana zuñiga Type: BLOOD SPECIMEN [facility] Address: [address] [place] [address] Result Comment: Lor mated Glomerular Filtration Rate [...] actual GFR. Performed By: #### 2 777-1, 43895-6, #### [facility] CLIA [id number] [address] [place] [address] [place] Glucose [Mass/Vol] 93 mg/dL Normal 74-99 [facility] Comment on above: Order Comment: Sana zuñiga Type: BLOOD SPECIMEN [facility] Address: [address] [place] [address] Result Comment: The [place] [employer] (ADA) provides guidance for cutoff [...] Standards of Medical Care in Diabetes 2016, [place] [employer]. Diabetes Care. 2016.39(Suppl 1). Performed By: #### 2 777-1, 68755-2, #### [facility] CLIA [id number] [address] [place] [address] [place] Potassium [Moles/Vol] 3.9 mmol/L Normal 3.7-5.1 [facility] Comment on above: Order Comment: Speci men Type: BLOOD SPECIMEN [facility] Address: [address] [place] [address] Performed By: #### 2 777-1, 29079-2, #### [facility] CLIA [id number] [address] [place] [address] [place] Sodium [Moles/Vol] 148 mmol/L High 136-144 [facility] Comment on above: Order Comment: Speci men Type: BLOOD SPECIMEN [facility] Address: [address] [place] [address] Performed By: #### 2 777-1, 02529-8, #### [facility] CLIA [id number] [address] [place] [address] [place] Urea nitrogen [Mass/Vol] 8 mg/dL Low 9-24 [facility] Comment on above: Order Comment: Speci men Type: BLOOD SPECIMEN [facility] Address: [address] [place] [address] Performed By: #### 2 777-1, 17957-6, #### [facility] CLIA [id number] [address] [place] [address] [place] CBC W Auto Differential pane l (Bld)on 10-31-2023 Basophils (Bld) [#/Vol] 10*3/uL Normal <0.11 [facility] Comment on above: Order Comment: Speci men Type: BLOOD SPECIMEN [facility] Address: [address] [place] [address] Performed By: #### 5 7021-8 #### [facility] CLIA [id number] [address] [place] [address] [place] Basophils/100 WBC (Bld) 0.2 % Normal [facility] Comment on above: Order Comment: Speci men Type: BLOOD SPECIMEN [facility] Address: [address] [place] [address] Performed By: #### 5 7021-8 #### [facility] CLIA [id number] [address] [place] [address] [place] Differential cell count method Nom (Bld) Auto Normal [facility] Comment on above: Order Comment: Speci men Type: BLOOD SPECIMEN [facility] Address: [address] [place] [address] Performed By: #### 5 7021-8 #### [facility] CLIA [id number] [address] [place] [address] [place] Eosinophils (Bld) [#/Vol] 0.18 10*3/uL Normal <0.46 [facility] Comment on above: Order Comment: Speci men Type: BLOOD SPECIMEN [facility] Address: [address] [place] [address] Performed By: #### 5 7021-8 #### [facility] CLIA [id number] [address] [place] [address] [place] Eosinophils/100 WBC (Bld) 1.9 % Normal [facility] Comment on above: Order Comment: Speci men Type: BLOOD SPECIMEN [facility] Address: [address] [place] [address] Performed By: #### 5 7021-8 #### [facility] CLIA [id number] [address] [place] [address] [place] Erythrocyte distribution width (RBC) [Ratio] 14.5 % Normal 11.5-15.0 [facility] Comment on above: Order Comment: Speci men Type: BLOOD SPECIMEN [facility] Address: [address] [place] [address] Performed By: #### 5 7021-8 #### [facility] CLIA [id number] [address] [place] [address] [place] Hematocrit (Bld) [Volume fraction] 30.2 % Low 39.0-51.0 [facility] Comment on above: Order Comment: Speci men Type: BLOOD SPECIMEN [facility] Address: [address] [place] [address] Performed By: #### 5 7021-8 #### [facility] CLIA [id number] [address] [place] [address] [place] Hemoglobin (Bld) [Mass/Vol] 9.4 g/dL Low 13.0-17.0 [facility] Comment on above: Order Comment: Speci men Type: BLOOD SPECIMEN [facility] Address: [address] [place] [address] Performed By: #### 5 7021-8 #### [facility] CLIA [id number] [address] [place] [address] [place] Immature granulocytes (Bld) [#/Vol] 0.06 10*3/uL Normal <0.10 [facility] Comment on above: Order Comment: Speci men Type: BLOOD SPECIMEN [facility] Address: [address] [place] [address] Performed By: #### 5 7021-8 #### [facility] CLIA [id number] [address] [place] [address] [place] Immature granulocytes/100 WBC (Bld) 0.6 % Normal [facility] Comment on above: Order Comment: Speci men Type: BLOOD SPECIMEN [facility] Address: [address] [place] [address] Performed By: #### 5 7021-8 #### [facility] CLIA [id number] [address] [place] [address] [place] Lymphocytes (Bld) [#/Vol] 1.61 10*3/uL Normal 1.00-4.00 [facility] Comment on above: Order Comment: Speci men Type: BLOOD SPECIMEN [facility] Address: [address] [place] [address] Performed By: #### 5 7021-8 #### [facility] CLIA [id number] [address] [place] [address] [place] Lymphocytes/100 WBC (Bld) 16.8 % Normal [facility] Comment on above: Order Comment: Speci men Type: BLOOD SPECIMEN [facility] Address: [address] [place] [address] Performed By: #### 5 7021-8 #### [facility] CLIA [id number] [address] [place] [address] [place] MCH (RBC) [Entitic mass] 26.5 pg Normal 26.0-34.0 [facility] Comment on above: Order Comment: Speci men Type: BLOOD SPECIMEN [facility] Address: [address] [place] [address] Performed By: #### 5 7021-8 #### [facility] CLIA [id number] [address] [place] [address] [place] MCHC (RBC) [Mass/Vol] 31.1 g/dL Normal 30.5-36.0 [facility] Comment on above: Order Comment: Speci men Type: BLOOD SPECIMEN [facility] Address: [address] [place] [address] Performed By: #### 5 7021-8 #### [facility] CLIA [id number] [address] [place] [address] [place] MCV (RBC) [Entitic vol] 85.1 fL Normal 80.0-100.0 [facility] Comment on above: Order Comment: Speci men Type: BLOOD SPECIMEN [facility] Address: [address] [place] [address] Performed By: #### 5 7021-8 #### [facility] CLIA [id number] [address] [place] [address] [place] Monocytes (Bld) [#/Vol] 0.88 10*3/uL High <0.87 [facility] Comment on above: Order Comment: Speci men Type: BLOOD SPECIMEN [facility] Address: [address] [place] [address] Performed By: #### 5 7021-8 #### [facility] CLIA [id number] [address] [place] [address] [place] Monocytes/100 WBC (Bld) 9.2 % Normal [facility] Comment on above: Order Comment: Speci men Type: BLOOD SPECIMEN [facility] Address: [address] [place] [address] Performed By: #### 5 7021-8 #### [facility] CLIA [id number] [address] [place] [address] [place] Neutrophils (Bld) [#/Vol] 6.84 10*3/uL Normal 1.45-7.50 [facility] Comment on above: Order Comment: Speci men Type: BLOOD SPECIMEN [facility] Address: [address] [place] [address] Performed By: #### 5 7021-8 #### [facility] CLIA [id number] [address] [place] [address] [place] Neutrophils/100 WBC (Bld) 71.3 % Normal [facility] Comment on above: Order Comment: Speci men Type: BLOOD SPECIMEN [facility] Address: [address] [place] [address] Performed By: #### 5 7021-8 #### [facility] CLIA [id number] [address] [place] [address] [place] Nucleated RBC (Bld) [#/Vol] 10*3/uL Normal <0.01 [facility] Comment on above: Order Comment: Speci men Type: BLOOD SPECIMEN [facility] Address: [address] [place] [address] Performed By: #### 5 7021-8 #### [facility] CLIA [id number] [address] [place] [address] [place] Nucleated RBC/100 WBC (Bld) [Ratio] 0.0 /100 WBC Normal [facility] Comment on above: Order Comment: Speci men Type: BLOOD SPECIMEN [facility]: [facility] Address: [address] [place] [address] Performed By: #### 5 7021-8 #### [facility] CLIA [id number] [address] [place] [address] [place] Platelet mean volume (Bld) [Entitic vol] 9.8 fL Normal 9.0-12.7 [facility] Comment on above: Order Comment: Speci men Type: BLOOD SPECIMEN [facility]: [facility] Address: [address] [place] [address] Performed By: #### 5 7021-8 #### [facility] CLIA [id number] [address] [place] [address] [place] Platelets (Bld) [#/Vol] 144 10*3/uL Low 150-400 [facility] Comment on above: Order Comment: Speci men Type: BLOOD SPECIMEN Ordering Facility: [facility] Address: [address] [place] [address] Result Comment: Resu lts checked and verified.No clot detected. Performed By: #### 5 7021-8 #### [facility] CLIA [id number] [address] [place] [address] [place] RBC (Bld) [#/Vol] 3.55 10*6/uL Low 4.20-6.00 [facility] Comment on above: Order Comment: Speci men Type: BLOOD SPECIMEN Ordering Facility: [facility] Address: [address] [place] [address] Performed By: #### 5 7021-8 #### [facility] CLIA [id number] [address] [place] [address] [place] WBC (Bld) [#/Vol] 9.59 10*3/uL Normal 3.70-11.00 [facility] Comment on above: Order Comment: Speci men Type: BLOOD SPECIMEN [facility]: [facility] Address: [address] [place] [address] Performed By: #### 5 7021-8 #### [facility] CLIA [id number] [address] [place] [address] [place] CBC panel Auto (Bld)on 10-30 Erythrocyte distribution width (RBC) [Ratio] 14.5 % Normal 11.5-15.0 [facility] Comment on above: Order Comment: Speci men Type: BLOOD SPECIMEN [facility] [facility] Address: [address] [place] [address] Performed By: #### 5 7021-8 #### [facility] CLIA [id number] [address] [place] [address] [place] Hematocrit (Bld) [Volume fraction] 28.6 % Low 39.0-51.0 [facility] Comment on above: Order Comment: Speci men Type: BLOOD SPECIMEN Ordering Facility: [facility] Address: [address] [place] [address] Performed By: #### 5 7021-8 #### [facility] CLIA [id number] [address] [place] [address] [place] Hemoglobin (Bld) [Mass/Vol] 9.1 g/dL Low 13.0-17.0 [facility] Comment on above: Order Comment: Speci men Type: BLOOD SPECIMEN Ordering Facility: [facility] Address: [address] [place] [address] Performed By: #### 5 7021-8 #### [facility] CLIA [id number] [address] [place] [address] [place] MCH (RBC) [Entitic mass] 27.1 pg Normal 26.0-34.0 [facility] Comment on above: Order Comment: Speci men Type: BLOOD SPECIMEN Ordering Facility: [facility] Address: [address] [place] [address] Performed By: #### 5 7021-8 #### [facility] CLIA [id number] [address] [place] [address] [place] MCHC (RBC) [Mass/Vol] 31.8 g/dL Normal 30.5-36.0 [facility] Comment on above: Order Comment: Speci men Type: BLOOD SPECIMEN Ordering Facility: [facility] Address: [address] [place] [address] Performed By: #### 5 7021-8 #### [facility] CLIA [id number] [address] [place] [address] [place] MCV (RBC) [Entitic vol] 85.1 fL Normal 80.0-100.0 [facility] Comment on above: Order Comment: Speci men Type: BLOOD SPECIMEN Ordering Facility: [facility] Address: [address] [place] [address] Performed By: #### 5 7021-8 #### [facility] CLIA [id number] [address] [place] [address] [place] Nucleated RBC (Bld) [#/Vol] 10*3/uL Normal <0.01 [facility] Comment on above: Order Comment: Speci men Type: BLOOD SPECIMEN Ordering Facility: [facility] Address: [address] [place] [address] Performed By: #### 5 7021-8 #### [facility] CLIA [id number] [address] [place] [address] [place] Platelet mean volume (Bld) [Entitic vol] 10.1 fL Normal 9.0-12.7 [facility] Comment on above: Order Comment: Speci men Type: BLOOD SPECIMEN Ordering Facility: [facility] Address: [address] [place] [address] Performed By: #### 5 7021-8 #### [facility] CLIA [id number] [address] [place] [address] [place] Platelets (Bld) [#/Vol] 180 10*3/uL Normal 150-400 [facility] Comment on above: Order Comment: Speci men Type: BLOOD SPECIMEN Ordering Facility: [facility] Address: [address] [place] [address] Performed By: #### 5 7021-8 #### [facility] CLIA [id number] [address] [place] [address] [place] RBC (Bld) [#/Vol] 3.36 10*6/uL Low 4.20-6.00 [facility] Comment on above: Order Comment: Speci men Type: BLOOD SPECIMEN Ordering Facility: [facility] Address: [address] [place] [address] Performed By: #### 5 7021-8 #### [facility] CLIA [id number] [address] [place] [address] [place] WBC (Bld) [#/Vol] 10.06 10*3/uL Normal 3.70-11.00 [facility] Comment on above: Order Comment: Speci men Type: BLOOD SPECIMEN Ordering Facility: [facility] Address: [address] [place] [address] Performed By: #### 5 7021-8 #### [facility] CLIA [id number] [address] [place] [address] [place] CONSULT PROGon 10-31-2023 CONSULT PROG HNO ID: [id number] Author: HEAVEN CAMACHO MD Service: Urology Author Type: Resident Type: Consult Progress Note Filed: 10/31/2023 06:56 Note Text: ON LICENSE OF [facility] UROLOGY PROGRESS NOTE Name: Johnny Devine Bed: H071 019/[id number] Date: 10/31/2023 After Hours [facility] Urology Service Pager: [phone] ASSESSMENT AND PLAN Johnny Devine is a [...] affiliate, Dr. Joseph Camacho MD Urology Resident [facility] Pager [phone] For weekend or after hours issues please page the on-call urology pager [phone] 10/31/2023 6:48 AM Subjective SUBJECTIVE - See [...] Imaging All relevant recent imaging reviewed Normal [facility] Comprehensive metabolic 2000 panelon 10-31-2023 Albumin [Mass/Vol] 3.1 g/dL Low 3.9-4.9 [facility] Comment on above: Order Comment: Speci men Type: BLOOD SPECIMEN Ordering Facility: [facility] Address: [address] [place] [address] Performed By: #### 5 7021-8 #### [facility] CLIA [id number] [address] [place] [address] [place] ALP [Catalytic activity/Vol] 31 U/L Low 38-113 [facility] Comment on above: Order Comment: Speci men Type: BLOOD SPECIMEN Ordering Facility: [facility] Address: [address] [place] [address] Performed By: #### 5 7021-8 #### [facility] CLIA [id number] [address] [place] [address] [place] ALT [Catalytic activity/Vol] 6 U/L Low 10-54 [facility] Comment on above: Order Comment: Speci men Type: BLOOD SPECIMEN Ordering Facility: [facility] Address: [address] [place] [address] Performed By: #### 5 7021-8 #### [facility] CLIA [id number] [address] [place] [address] [place] Anion gap [Moles/Vol] 6 mmol/L Low 9-18 [facility] Comment on above: Order Comment: Speci men Type: BLOOD SPECIMEN Ordering Facility: [facility] Address: [address] [place] [address] Performed By: #### 5 7021-8 #### [facility] CLIA [id number] [address] [place] [address] [place] AST [Catalytic activity/Vol] 13 U/L Low 14-40 [facility] Comment on above: Order Comment: Speci men Type: BLOOD SPECIMEN Ordering Facility: [facility] Address: [address] [place] [address] Performed By: #### 5 7021-8 #### [facility] CLIA [id number] [address] [place] [address] [place] Bilirubin [Mass/Vol] mg/dL Low 0.2-1.3 [facility] Comment on above: Order Comment: Speci men Type: BLOOD SPECIMEN Ordering Facility: [facility] Address: [address] [place] [address] Performed By: #### 5 7021-8 #### [facility] CLIA [id number] [address] [place] [address] [place] Calcium [Mass/Vol] 7.4 mg/dL Low 8.5-10.2 [facility] Comment on above: Order Comment: Speci men Type: BLOOD SPECIMEN Ordering Facility: [facility] Address: [address] [place] [address] Performed By: #### 5 7021-8 #### [facility] CLIA [id number] [address] [place] [address] [place] Chloride [Moles/Vol] 115 mmol/L High 97-105 [facility] Comment on above: Order Comment: Speci men Type: BLOOD SPECIMEN Ordering Facility: [facility] Address: [address] [place] [address] Performed By: #### 5 7021-8 #### [facility] CLIA [id number] [address] [place] [address] [place] CO2 [Moles/Vol] 26 mmol/L Normal 22-30 [facility] Comment on above: Order Comment: Speci men Type: BLOOD SPECIMEN Ordering Facility: [facility] Address: [address] [place] [address] Performed By: #### 5 7021-8 #### [facility] CLIA [id number] [address] [place] [address] [place] Creatinine [Mass/Vol] 0.73 mg/dL Normal 0.73-1.22 [facility] Comment on above: Order Comment: Speci men Type: BLOOD SPECIMEN Ordering Facility: [facility] Address: [address] [place] [address] Performed By: #### 5 7021-8 #### [facility] CLIA [id number] [address] [place] [address] [place] Creatinine and Glomerular filtration rate.predicted panel (S/P/Bld) 125 mL/min/1.73m??? Normal >=60 [facility] Comment on above: Order Comment: Speci men Type: BLOOD SPECIMEN Ordering Facility: [facility] Address: [address] [place] [address] Result Comment: Lor mated Glomerular Filtration Rate [...] GFR. Performed By: #### 5 7021-8 #### [facility] CLIA [id number] [address] [place] [address] [place] Glucose [Mass/Vol] 103 mg/dL High 74-99 [facility] Comment on above: Order Comment: Sana zuñiga Type: BLOOD SPECIMEN Ordering Facility: [facility] Address: [address] [place] [address] Result Comment: The [place] Diabetes Association (ADA) provides guidance for cutoff [...] Standards of Medical Care in Diabetes 2016, [place] [employer]. Diabetes Care. 2016.39(Suppl 1). Performed By: #### 5 7021-8 #### [facility] CLIA [id number] [address] [place] [address] [place] Potassium [Moles/Vol] 4.0 mmol/L Normal 3.7-5.1 [facility] Comment on above: Order Comment: Sana zuñiga Type: BLOOD SPECIMEN Ordering Facility: [facility] Address: [address] [place], [place] [address] Performed By: #### 5 7021-8 #### [facility] CLIA [id number] [address] [place] [address] [place] Protein [Mass/Vol] 5.6 g/dL Low 6.3-8.0 [facility] Comment on above: Order Comment: Speci men Type: BLOOD SPECIMEN Ordering Facility: [facility] Address: [address] [place] [address] Performed By: #### 5 7021-8 #### [facility] CLIA [id number] [address] [place] [address] [place] Sodium [Moles/Vol] 147 mmol/L High 136-144 [facility] Comment on above: Order Comment: Speci men Type: BLOOD SPECIMEN Ordering Facility: [facility] Address: [address] [place] [address] Performed By: #### 5 7021-8 #### [facility] CLIA [id number] [address] [place] [address] [place] Urea nitrogen [Mass/Vol] 9 mg/dL Normal 9-24 [facility] Comment on above: Order Comment: Speci men Type: BLOOD SPECIMEN Ordering Facility: [facility] Address: [address] [place] [address] Performed By: #### 5 7021-8 #### [facility] CLIA [id number] [address] [place] [address] [place] [id number] 10-31-2023 ECG01 Ventricular Rate : 9 3 BPM Atrial Rate : 93 BPM P-R Interval : 146 ms QRS Duration : 90 ms Q-T Interval : 394 ms QTC Calculation(Bazett) : 489 ms Calculated P [place] : 7 degrees Calculated R [place] : 11 degrees Calculated T [place] : -11 degrees NORMAL SINUS RHYTHM ANTEROLATERAL T WAVE ABNORMALITY BORDERLINE PROLONGED QTC ABNORMAL ECG Confirmed by TRENT BYRD MD ([id number]) on 11/06/2023 9:42:18 AM NAME : JOHNNY DEVINE PID : [id number] : 1990 Gender : Male Race : ORD : Procedure Date : Oct 31 2023 15:33:44 Edit Date : Nov 06 2023 09:42:18 Diagnosis: NORMAL SINUS RHYTHM ANTEROLATERAL T WAVE ABNORMALITY BORDERLINE PROLONGED QTC ABNORMAL ECG Confirmed by TRENT BYRD MD ([id number]) on 11/06/2023 9:42:18 AM Test Reason : AMET Location : 74 : H71 H71-19 Overread By : TRENT BYRD MD Edited By : TRENT BYRD MD Referred By : PHOENIX CARDENAS Acquired by : MARI DUMONT [facility] EMERon 10-31-2023 [facility] HNO ID: [id number] Author: PASTORA KINGSLEY APRN.CNP Service: Critical Care [...] October 31, 2023 TIME: 4:13 PM Normal [facility] Magnesium SerPl-mCncon 10-30 Magnesium [Mass/Vol] 2.2 mg/dL Normal 1.7-2.3 [facility] Comment on above: Order Comment: Speci men Type: BLOOD SPECIMENOrdering Facility: [facility] Address: [address] [place] [address] Performed By: #### 1 9123-9, 2777-1 ####[facility] [id number] [address] [place] Magnesium [Mass/Vol] 2.1 mg/dL Normal 1.7-2.3 [facility] Comment on above: Order Comment: Speci men Type: BLOOD SPECIMEN Ordering Facility: [facility] Address: [address] [place] [address] Performed By: #### 2 777-1, 66508-4, 34302-1 #### [facility] CLIA [id number] [address] [place] [address] [place] NURSING PROGon 10-31-2023 NURSING PROG HNO ID: [id number] Author: PAZ RIGGINS, RN Service: Nursing Author Type: Registered Nurse Type: Nursing Progress Note Filed: 10/31/2023 16:32 Note Text: Called into patients room by brother who stated patient was shaking hard and having seizure like activity, on entering room patient was tachypneic and breathing hard, AMET activated. Chest xray ordered, EKG done, labs done, oxygen 89 on RA, 2L NC applied. Normal [facility] Phosphate SerPl-mCncon 10-30 Phosphate [Mass/Vol] 1.4 mg/dL Low 2.7-4.8 [facility] Comment on above: Order Comment: Speci men Type: BLOOD SPECIMENOrdering Facility: [facility] Address: [address] [place] [address] Performed By: #### 1 9123-9, 2777-1 ####[facility] [id number] [facility] [place] [address] [place] Phosphate [Mass/Vol] 2.1 mg/dL Low 2.7-4.8 [facility] Comment on above: Order Comment: Speci men Type: BLOOD SPECIMEN Ordering Facility: [facility] Address: [address] [place] [address] Performed By: #### 2 777-1, 81361-1, 17190-0 #### [facility] CLIA [id number] [address] [place] [address] [place] [address] [place] XR ABDOMEN 1V [...] Lung bases are not well seen. Oracle Database Developer: [facility] Transcribe Date/Time: Oct 31 2023 5:15P Dictated by : LEONEL ALONZO MD This examination was interpreted and the report reviewed and electronically signed by: LEONEL ALONZO MD on Oct 31 2023 5:22PM EST [id number] Normal [facility] XR CHEST 1V FRONTAL PORTon [...] silhouette. Other: . IMPRESSION: See result. Oracle Database Developer: [facility] Transcribe Date/Time: Oct 31 2023 4:14P Dictated by : SHEA WORTHY MD This examination was interpreted and the report reviewed and electronically signed by: SHEA WORTHY MD on Oct 31 2023 4:15PM EST [id number] Normal [facility] ANES POSTPROC EVALon 024 ANES POSTPROC EVAL HNO ID: [id number] Author: JEREMIE JOAQUIN MD Service: ? Author Type: Anesthesiologist Type: Anesthesia Postprocedure Evaluation Filed: 10/30/2023 11:55 Note Text: POST ANESTHESIA EVALUATION NOTE : 1990 Procedure Summary Date: 10/30/23 Room / Location: [place] [address] [facility] Anesthesia Start: 731 Anesthesia [...] October 30, 2023 TIME: 11:46 AM CSN: [id number] Normal [facility] ANES PRE-OPon 10-30-2023 ANES PRE-OP HNO ID: [id number] Author: JEREMIE JOAQUIN MD Service: ? Author Type: Anesthesiologist Type: Anesthesia Preprocedure Evaluation Filed: 10/30/2023 08:16 Note Text: ANESTHESIOLOGY DAY OF SURGERY NOTE : 1990 Procedure Information Date/Time: 10/30/23 0730 Procedure: DORSAL SLIT FORESKIN EXCEPT (Penis) Location: [place] [address] [facility] Surgeons: Rafael Giraldo MD [...] mL MUCOUS MEMBRANE ONCE - phenol 1 Reynolds (CHLORASEPTIC) 1 Reynolds MUCOUS MEMBRANE (TOPICAL MOUTH AND THROAT) q [...] INTRAVENOUS DAILY (6 AM) - phenol 1 Reynolds (CHLORASEPTIC) 1 Reynolds MUCOUS MEMBRANE (TOPICAL MOUTH AND THROAT) q [...] MORNING F (more content not included)... Normal [facility] Basic metabolic 2000 panelon 10-30-2023 Anion gap [Moles/Vol] 12 mmol/L Normal 9-18 [facility] Comment on above: Order Comment: Speci men Type: BLOOD SPECIMEN Ordering Facility: [facility] Address: [address] [place] [address] Performed By: #### 2 4321-2, , 2776-08 #### [facility] CLIA [id number] [address] [place] [address] [place] Calcium [Mass/Vol] 7.4 mg/dL Low 8.5-10.2 [facility] Comment on above: Order Comment: Speci men Type: BLOOD SPECIMEN Ordering Facility: [facility] Address: [address] [place] [address] Performed By: #### 2 4321-2, , 2776-08 #### [facility] CLIA [id number] [address] [place] [address] [place] Chloride [Moles/Vol] 113 mmol/L High 97-105 [facility] Comment on above: Order Comment: Speci men Type: BLOOD SPECIMEN Ordering Facility: [facility] Address: [address] [place] [address] Performed By: #### 2 4321-2, , 2776-08 #### [facility] CLIA [id number] [address] [place] [address] [place] CO2 [Moles/Vol] 24 mmol/L Normal 22-30 [facility] Comment on above: Order Comment: Speci men Type: BLOOD SPECIMEN Ordering Facility: [facility] Address: [address] [place] [address] Performed By: #### 2 4321-2, , 2776-08 #### [facility] CLIA [id number] [address] [place] [address] [place] Creatinine [Mass/Vol] 0.69 mg/dL Low 0.73-1.22 [facility] Comment on above: Order Comment: Speci men Type: BLOOD SPECIMEN Ordering Facility: [facility] Address: [address] [place] [address] Performed By: #### 2 4321-2, , 2776-08 #### [facility] CLIA [id number] [address] [place] [address] [place] Creatinine and Glomerular filtration rate.predicted panel (S/P/Bld) 127 mL/min/1.73m??? Normal >=60 [facility] Comment on above: Order Comment: Speci men Type: BLOOD SPECIMEN Ordering Facility: [facility] Address: [address] [place] [address] Result Comment: Lor mated Glomerular Filtration Rate [...] actual GFR. Performed By: #### 2 4321-2, 64384-12776-08 #### [facility] CLIA [id number] [address] [place] [address] [place] Glucose [Mass/Vol] 98 mg/dL Normal 74-99 [facility] Comment on above: Order Comment: Sana zuñiga Type: BLOOD SPECIMEN Ordering Facility: [facility] Address: [address] [place] [address] Result Comment: The [place] Diabetes Association (ADA) provides guidance for cutoff [...] Standards of Medical Care in Diabetes 2016, [place] [employer]. Diabetes Care. 2016.39(Suppl 1). Performed By: #### 2 4321-2, , 2776-08 #### [facility] CLIA [id number] [address] [place] [address] [place] Potassium [Moles/Vol] 3.6 mmol/L Low 3.7-5.1 [facility] Comment on above: Order Comment: Sana zuñiga Type: BLOOD SPECIMEN Ordering Facility: [facility] Address: [address] [place] [address] Performed By: #### 2 4321-2, , 2776-08 #### [facility] CLIA [id number] [address] [place] [address] [place] Sodium [Moles/Vol] 149 mmol/L High 136-144 [facility] Comment on above: Order Comment: Sana zuñiga Type: BLOOD SPECIMEN Ordering Facility: [facility] Address: [address] [place] [address] Performed By: #### 2 4321-2, 52020-4, 2777- #### [facility] CLIA [id number] [address] [place] [address] [place] Urea nitrogen [Mass/Vol] 9 mg/dL Normal 9-24 [facility] Comment on above: Order Comment: Speci men Type: BLOOD SPECIMEN Ordering Facility: [facility] Address: [address] [place] [address] Performed By: #### 2 4321-2, 15735-6, 277- #### [facility] CLIA [id number] [address] [place] [address] [place] CBC W Auto Differential pane l (Bld)on 10-30-2023 Basophils (Bld) [#/Vol] 0.03 10*3/uL Normal <0.11 [facility] Comment on above: Order Comment: Speci men Type: BLOOD SPECIMEN Ordering Facility: [facility] Address: [address] [place] [address] Performed By: #### 5 7021-8 #### [facility] CLIA [id number] [address] [place] [address] [place] Basophils/100 WBC (Bld) 0.3 % Normal [facility] Comment on above: Order Comment: Speci men Type: BLOOD SPECIMEN Ordering Facility: [facility] Address: [address] [place] [address] Performed By: #### 5 7021-8 #### [facility] CLIA [id number] [address] [place] [address] [place] Differential cell count method Nom (Bld) Auto Normal [facility] Comment on above: Order Comment: Speci men Type: BLOOD SPECIMEN Ordering Facility: [facility] Address: [address] [place] [address] Performed By: #### 5 7021-8 #### [facility] CLIA [id number] [address] [place], [place] [address] [place] Eosinophils (Bld) [#/Vol] 0.07 10*3/uL Normal <0.46 [facility] Comment on above: Order Comment: Speci men Type: BLOOD SPECIMEN Ordering Facility: [facility] Address: [address] [place] [address] Performed By: #### 5 7021-8 #### [facility] CLIA [id number] [address] [place] [address] [place] Eosinophils/100 WBC (Bld) 0.6 % Normal [facility] Comment on above: Order Comment: Speci men Type: BLOOD SPECIMEN Ordering Facility: [facility] Address: [address] [place] [address] Performed By: #### 5 7021-8 #### [facility] CLIA [id number] [address] [place] [address] [place] Erythrocyte distribution width (RBC) [Ratio] 14.5 % Normal 11.5-15.0 [facility] Comment on above: Order Comment: Speci men Type: BLOOD SPECIMEN Ordering Facility: [facility] Address: [address] [place] [address] Performed By: #### 5 7021-8 #### [facility] CLIA [id number] [address] [place] [address] [place] Hematocrit (Bld) [Volume fraction] 31.1 % Low 39.0-51.0 [facility] Comment on above: Order Comment: Speci men Type: BLOOD SPECIMEN Ordering Facility: [facility] Address: [address] [place] [address] Performed By: #### 5 7021-8 #### [facility] CLIA [id number] [address] [place] [address] [place] Hemoglobin (Bld) [Mass/Vol] 9.8 g/dL Low 13.0-17.0 [facility] Comment on above: Order Comment: Speci men Type: BLOOD SPECIMEN Ordering Facility: [facility] Address: [address] [place] [address] Performed By: #### 5 7021-8 #### [facility] CLIA [id number] [address] [place] [address] [place] Immature granulocytes (Bld) [#/Vol] 0.06 10*3/uL Normal <0.10 [facility] [facility] Comment on above: Order Comment: Speci men Type: BLOOD SPECIMEN Ordering Facility: [facility] Address: [address] [place] [address] Performed By: #### 5 7021-8 #### [facility] CLIA [id number] [address] [place] [address] [place] Immature granulocytes/100 WBC (Bld) 0.5 % Normal [facility] Comment on above: Order Comment: Speci men Type: BLOOD SPECIMEN Ordering Facility: [facility] Address: [address] [place] [address] Performed By: #### 5 7021-8 #### [facility] CLIA [id number] [address] [place] [address] [place] Lymphocytes (Bld) [#/Vol] 1.41 10*3/uL Normal 1.00-4.00 [facility] Comment on above: Order Comment: Speci men Type: BLOOD SPECIMEN Ordering Facility: [facility] Address: [address] [place] [address] Performed By: #### 5 7021-8 #### [facility] CLIA [id number] [address] [place] [address] [place] Lymphocytes/100 WBC (Bld) 12.0 % Normal [facility] Comment on above: Order Comment: Speci men Type: BLOOD SPECIMEN Ordering Facility: [facility] Address: [address] [place] [address] Performed By: #### 5 7021-8 #### [facility] CLIA [id number] [address] [place] [address] [place] MCH (RBC) [Entitic mass] 26.6 pg Normal 26.0-34.0 [facility] Comment on above: Order Comment: Speci men Type: BLOOD SPECIMEN Ordering Facility: [facility] Address: [address] [place] [address] Performed By: #### 5 7021-8 #### [facility] CLIA [id number] [address] [place] [address] [place] MCHC (RBC) [Mass/Vol] 31.5 g/dL Normal 30.5-36.0 [facility] Comment on above: Order Comment: Speci men Type: BLOOD SPECIMEN Ordering Facility: [facility] Address: [address] [place] [address] Performed By: #### 5 7021-8 #### [facility] CLIA [id number] [address] [place] [address] [place] MCV (RBC) [Entitic vol] 84.5 fL Normal 80.0-100.0 [facility] Comment on above: Order Comment: Speci men Type: BLOOD SPECIMEN Ordering Facility: [facility] Address: [address] [place] [address] Performed By: #### 5 7021-8 #### [facility] CLIA [id number] [address] [place] [address] [place] Monocytes (Bld) [#/Vol] 1.18 10*3/uL High <0.87 [facility] Comment on above: Order Comment: Speci men Type: BLOOD SPECIMEN Ordering Facility: [facility] Address: [address] [place] [address] Performed By: #### 5 7021-8 #### [facility] CLIA [id number] [address] [place] [address] [place] Monocytes/100 WBC (Bld) 10.1 % Normal [facility] Comment on above: Order Comment: Speci men Type: BLOOD SPECIMEN Ordering Facility: [facility] Address: [address] [place] [address] Performed By: #### 5 7021-8 #### [facility] CLIA [id number] [address] [place] [address] [place] Neutrophils (Bld) [#/Vol] 8.98 10*3/uL High 1.45-7.50 [facility] Comment on above: Order Comment: Speci men Type: BLOOD SPECIMEN Ordering Facility: [facility] Address: [address] [place] [address] Performed By: #### 5 7021-8 #### [facility] CLIA [id number] [address] [place] [address] [place] Neutrophils/100 WBC (Bld) 76.5 % Normal [facility] Comment on above: Order Comment: Speci men Type: BLOOD SPECIMEN Ordering Facility: [facility] Address: [address] [place] [address] Performed By: #### 5 7021-8 #### [facility] CLIA [id number] [address] [place] [address] [place] Nucleated RBC (Bld) [#/Vol] 10*3/uL Normal <0.01 [facility] Comment on above: Order Comment: Speci men Type: BLOOD SPECIMEN Ordering Facility: [facility] Address: [address] [place] [address] Performed By: #### 5 7021-8 #### [facility] CLIA [id number] [address] [place] [address] [place] Nucleated RBC/100 WBC (Bld) [Ratio] 0.0 /100 WBC Normal [facility] Comment on above: Order Comment: Speci men Type: BLOOD SPECIMEN Ordering Facility: [facility] Address: [address] [place] [address] Performed By: #### 5 7021-8 #### [facility] CLIA [id number] [address] [place] [address] [place] Platelet mean volume (Bld) [Entitic vol] 9.7 fL Normal 9.0-12.7 [facility] Comment on above: Order Comment: Speci men Type: BLOOD SPECIMEN Ordering Facility: [facility] Address: [address] [place] [address] Performed By: #### 5 7021-8 #### [facility] CLIA [id number] [address] [place] [address] [place] Platelets (Bld) [#/Vol] 138 10*3/uL Low 150-400 [facility] Comment on above: Order Comment: Speci men Type: BLOOD SPECIMEN Ordering Facility: [facility] Address: [address] [place] [address] Performed By: #### 5 7021-8 #### [facility] CLIA [id number] [address] [place] [address] [place] RBC (Bld) [#/Vol] 3.68 10*6/uL Low 4.20-6.00 [facility] Comment on above: Order Comment: Speci men Type: BLOOD SPECIMEN Ordering Facility: [facility] Address: [address] [place] [address] Performed By: #### 5 7021-8 #### [facility] CLIA [id number] [address] [place] [address] [place] WBC (Bld) [#/Vol] 11.73 10*3/uL High 3.70-11.00 [facility] Comment on above: Order Comment: Speci men Type: BLOOD SPECIMEN Ordering Facility: [facility] Address: [address] [place] [address] Performed By: #### 5 7021-8 #### [facility] CLIA [id number] [address] [place] [address] [place] CONSULTon 10-30-2023 CONSULT HNO ID: [id number] Author: RAFAEL GIRALDO MD Service: Urology Author [...] the meatal orifice was visualized, an 8 Macedonian Haskins catheter was sterilely placed. However, the [...] Dr. Jay Alan MD Resident PGY-2 Urology [facility] Pager [phone] After hours and on weekend rayon tester pager [phone] HPI Johnny Devine is a 33 year [...] the meatal orifice was visualized, an 8 Macedonian Haskins catheter was sterilely placed. CYU was [...] CONGESTIONDisp: Rfl: guanFACINE (INTUNIV ER) 4 mg Nd95Hcmy 4 mg by mouth onc (more content not included)... Normal [facility] Magnesium SerPl-mCncon 10-29 Magnesium [Mass/Vol] 2.0 mg/dL Normal 1.7-2.3 [facility] Comment on above: Order Comment: Speci men Type: BLOOD SPECIMENOrdering Facility: [facility] Address: [address] [place] [address] Performed By: #### 2 4321-2, 35485-0, 2777-1 ####[facility] [id number] [place] [address] [place] NURSING PROGon 10-30-2023 NURSING PROG HNO ID: [id number] Author: SHAHRIAR FARFAN RN Service: Nursing Author Type: Registered Nurse Type: Nursing Progress Note Filed: 10/30/2023 09:52 Note Text: Pt awake, opens eyes spontaneously, MEDINA to command, generalized weakness. Nonverbal at baseline. VSS. Appears comfortable, no grimacing, resting Normal [facility] NURSING PROG HNO ID: [id number] Author: SHAHRIAR FARFAN RN Service: Nursing Author [...] effective in protecting the patient's safety: Alarms, Turbine Technician/Sitter, Bed in Low/Locked Position Next, a comprehensive assessment was performed and warranted placing the patient in Soft Bilateral Wrists, the least restrictive restraint needed to protect the patient's safety. Ongoing safety assessments and evaluation for earliest removal of restraints will be performed. DATE: October 30, 2023 TIME: 9:48 AM Shahriar Farfan RN Normal [facility] NURSING PROG HNO ID: [id number] Author: LEONARD FRANCIS JR, RN Service: Nursing Author Type: Registered Nurse Type: Nursing Progress Note Filed: 10/30/2023 01:11 Note Text: 2200 PM: PT does not have have a haskins catheter post op. Per report, prior to OR PT was admitted from OSH with a pediatric haskins in place due to difficulties with normal catheter. [id number] Gen surg notified. PT is clean and [...] Gen surg at bedside Leonard PINEDA. Normal [facility] OPERATIVE NOon 10-30-2023 OPERATIVE NO HNO ID: [id number] Author: HERMAN JOHNSON MD Service: Urology Author [...] Patient Name: Johnny Devine Patient Log ID: [id number] Surgery Date: 10/30/2023 Incision/Procedure Start Time: 8:03 AM Incision Close/Procedure End Time: 8:17 AM Surgeon(s) and Associate Professor Of Church Music(s): Surgeon(s) and Role: * Oscar Ruiz MD [...] I agree with the documentation above. Normal [facility] Phosphate SerPl-mCncon 10-29 Phosphate [Mass/Vol] 2.2 mg/dL Low 2.7-4.8 [facility] Comment on above: Order Comment: Speci men Type: BLOOD SPECIMENOrdering Facility: [facility] Address: [address] [address] Performed By: #### 2 4321-2, 24767-8, 2777-1 ####[facility] [id number] [address] [address] [place] XR ABDOMEN 1V [...] an ileus. Sigmoid distention appears improved Oracle Database Developer: PSCB Transcribe Date/Time: Oct 30 2023 7:41A Dictated by : RYAN MORRIS MD This examination was interpreted and the report reviewed and electronically signed by: RYAN MORRIS MD on Oct 30 2023 7:43AM EST [id number] Normal [facility] ANES POSTPROC EVALon 024 ANES POSTPROC EVAL HNO ID: [id number] Author: DORIE TENA DO Service: ? Author Type: Anesthesiologist Type: Anesthesia Postprocedure Evaluation Filed: 10/29/2023 14:37 Note Text: POST ANESTHESIA EVALUATION NOTE : 1990 Procedure Summary Date: 10/29/23 Room / Location: [address] [facility] Anesthesia Start: 0948 Anesthesia [...] October 29, 2023 TIME: 2:34 PM CSN: [id number] Normal [facility] ANES PRE-OPon 10-29-2023 ANES PRE-OP HNO ID: [id number] Author: KENZIE MORE APRN.BACK FILLER OPERATOR Service: ? Author Type: Nurse Community Reinvestment Act Officer Type: Anesthesia Preprocedure Evaluation Filed: 10/29/2023 09:58 Note Text: ANESTHESIOLOGY DAY OF SURGERY NOTE : 1990 Procedure Information Anesthesia Start Date/Time: 10/29/23947 Procedure: EXPLORATORY LAPAROTOMY (Abdomen) Location: MAIN [facility] / MAIN [place] Surgeons: Samuel Robin MD There is no [...] HR - [Held on Transfer] phenol 1 Reynolds (CHLORASEPTIC) 1 Reynolds MUCOUS MEMBRANE (TOPICAL MOUTH AND THROAT) q [...] - Sennosid (more content not included)... Normal [facility] BRIEF OP NOTon 10-29-2023 BRIEF OP NOT HNO ID: [id number] Author: PA ALICEA MD Service: General Surgery Author Type: Resident Type: Brief Op Note Filed: 10/29/2023 11:47 Note Text: [facility] BRIEF OP NOTE LOG ID: [id number] SURGERY/PROCEDURE DATE: 10/29/2023 INCISION/PROCEDURE START TIME: 10:25 AM INCISION CLOSE/PROCEDURE END TIME: 11:40 AM SURGEON(S)/PROCEDURAL IST(S) AND AIRCRAFT ORDNANCE SYSTEMS MECHANIC(S): Surgeon(s) and Role: * Samuel Robin [...] 29, 2023 TIME: 11:45 AM PAGER/CONTACT #: [facility] BRIEF OP NOT HNO ID: [id number] Author: DANTE CHERRY MD Service: General Surgery Author Type: Resident Type: Brief Op Note Filed: 10/29/2023 11:44 Note Text: BRIEF OPERATIVE / PROCEDURE NOTE LOG ID: [id number] SURGERY/PROCEDURE DATE: 10/29/2023 INCISION/PROCEDURE START TIME: 10:25 AM INCISION CLOSE/PROCEDURE END TIME: 11:40 AM SURGEON(S)/PROCEDURAL IST(S) AND AIRCRAFT ORDNANCE SYSTEMS MECHANIC(S): Surgeon(s) and Role: * Samuel Robin MD - Primary * Pa Alicea MD - Assisting * Danet Cherry MD - Assisting No Additional Staff [...] October 29, 2023 TIME: 11:36 AM Normal [facility] BRIEF OP NOT HNO ID: [id number] Author: PA ALICEA MD Service: General Surgery Author Type: Resident Type: Brief Op Note Filed: 10/29/2023 08:42 Note Text: Created in Error Normal [facility] Basic metabolic 2000 panelon 10-29-2023 Anion gap [Moles/Vol] 11 mmol/L Normal 9-18 [facility] Comment on above: Order Comment: Speci men Type: BLOOD SPECIMEN Ordering Facility: [facility] Address: [address] [place] [address] Performed By: #### 2 777-1, , #### [facility] CLIA [id number] [address] [place] [address] [place] Calcium [Mass/Vol] 7.4 mg/dL Low 8.5-10.2 [facility] Comment on above: Order Comment: Speci men Type: BLOOD SPECIMEN Ordering Facility: [facility] Address: [address] [place] [address] Performed By: #### 2 777-1, , #### [facility] CLIA [id number] [address] [place] [address] [place] Chloride [Moles/Vol] 112 mmol/L High 97-105 [facility] Comment on above: Order Comment: Speci men Type: BLOOD SPECIMEN Ordering Facility: [facility] Address: [address] [place] [address] Performed By: #### 2 777-1, 86471-6, #### [facility] CLIA [id number] [address] [place] [address] [place] CO2 [Moles/Vol] 21 mmol/L Low 22-30 [facility] Comment on above: Order Comment: Speci men Type: BLOOD SPECIMEN Ordering Facility: [facility] Address: [address] [place] [address] Performed By: #### 2 777-1, 83838-3, #### [facility] CLIA [id number] [address] [place] [address] [place] Creatinine [Mass/Vol] 0.69 mg/dL Low 0.73-1.22 [facility] Comment on above: Order Comment: Speci men Type: BLOOD SPECIMEN Ordering Facility: [facility] Address: [address] [place] [address] Performed By: #### 2 777-1, 50859-2, #### [facility] CLIA [id number] [address] [place] [address] [place] Creatinine and Glomerular filtration rate.predicted panel (S/P/Bld) 127 mL/min/1.73m??? Normal >=60 [facility] Comment on above: Order Comment: Speci men Type: BLOOD SPECIMEN Ordering Facility: [facility] Address: [address] [place] [address] Result Comment: Lor mated Glomerular Filtration Rate [...] actual GFR. Performed By: #### 2 777-1, 27478-5, #### [facility] CLIA [id number] [address] [place] [address] [place] Glucose [Mass/Vol] 115 mg/dL High 74-99 [facility] Comment on above: Order Comment: Speci men Type: BLOOD SPECIMEN Ordering Facility: [facility] Address: [address] [place] [address] Result Comment: The [place] Diabetes Association (ADA) provides guidance for cutoff [...] Standards of Medical Care in Diabetes 2016, [place] Diabetes Association. Diabetes Care. 2016.39(Suppl 1). Performed By: #### 2 777-1, 62909-6, #### [facility] CLIA [id number] [address] [place] [address] [place] Potassium [Moles/Vol] 3.8 mmol/L Normal 3.7-5.1 [facility] Comment on above: Order Comment: Speci men Type: BLOOD SPECIMEN Ordering Facility: [facility] Address: [address] [place] [address] Performed By: #### 2 777-1, 67350-0, #### [facility] CLIA [id number] [address] [place] [address] [place] Sodium [Moles/Vol] 144 mmol/L Normal 136-144 [facility] Comment on above: Order Comment: Speci men Type: BLOOD SPECIMEN Ordering Facility: [facility] Address: [address] [place] [address] Performed By: #### 2 777-1, 62112-0, 83387-7 #### [facility] CLIA [id number] [address] [place] [address] [place] Urea nitrogen [Mass/Vol] 13 mg/dL Normal 9-24 [facility] Comment on above: Order Comment: Speci men Type: BLOOD SPECIMEN Ordering Facility: [facility] Address: [address] [place] [address] Performed By: #### 2 777-1, 36650-7, #### [facility] CLIA [id number] [address] [place] [address] [place] CBC W Auto Differential pane l (Bld)on 10-29-2023 Basophils (Bld) [#/Vol] 10*3/uL Normal <0.11 [facility] Comment on above: Order Comment: Speci men Type: BLOOD SPECIMEN Ordering Facility: [facility] Address: [address] [place] [address] Performed By: #### 5 7021-8 #### [facility] CLIA [id number] [address] [place] [address] [place] Basophils/100 WBC (Bld) 0.1 % Normal [facility] Comment on above: Order Comment: Speci men Type: BLOOD SPECIMEN Ordering Facility: [facility] Address: [address] [place] [address] Performed By: #### 5 7021-8 #### [facility] CLIA [id number] [address] [place] [address] [place] Differential cell count method Nom (Bld) Auto Normal [facility] Comment on above: Order Comment: Speci men Type: BLOOD SPECIMEN Ordering Facility: [facility] Address: [address] [place] [address] Performed By: #### 5 7021-8 #### [facility] CLIA [id number] [address] [place] [address] [place] Eosinophils (Bld) [#/Vol] 10*3/uL Normal <0.46 [facility] Comment on above: Order Comment: Speci men Type: BLOOD SPECIMEN Ordering Facility: [facility] Address: [address] [place] [address] Performed By: #### 5 7021-8 #### [facility] CLIA [id number] [address] [place] [address] [place] Eosinophils/100 WBC (Bld) 0.1 % Normal [facility] Comment on above: Order Comment: Speci men Type: BLOOD SPECIMEN Ordering Facility: [facility] Address: [address] [place] [address] Performed By: #### 5 7021-8 #### [facility] CLIA [id number] [address] [place] [address] [place] Erythrocyte distribution width (RBC) [Ratio] 14.6 % Normal 11.5-15.0 [facility] Comment on above: Order Comment: Speci men Type: BLOOD SPECIMEN Ordering Facility: [facility] Address: [address] [place] [address] Performed By: #### 5 7021-8 #### [facility] CLIA [id number] [address] [place] [address] [place] Hematocrit (Bld) [Volume fraction] 33.0 % Low 39.0-51.0 [facility] Comment on above: Order Comment: Speci men Type: BLOOD SPECIMEN Ordering Facility: [facility] Address: [address] [place] [address] Performed By: #### 5 7021-8 #### [facility] CLIA [id number] [address] [place] [address] [place] Hemoglobin (Bld) [Mass/Vol] 10.5 g/dL Low 13.0-17.0 [facility] Comment on above: Order Comment: Speci men Type: BLOOD SPECIMEN Ordering Facility: [facility] Address: [address] [place] [address] Performed By: #### 5 7021-8 #### [facility] CLIA [id number] [address] [place] [address] [place] Immature granulocytes (Bld) [#/Vol] 0.05 10*3/uL Normal <0.10 [facility] Comment on above: Order Comment: Speci men Type: BLOOD SPECIMEN Ordering Facility: [facility] Address: [address] [place] [address] Performed By: #### 5 7021-8 #### [facility] CLIA [id number] [address] [place] [address] [place] Immature granulocytes/100 WBC (Bld) 0.4 % Normal [facility] Comment on above: Order Comment: Speci men Type: BLOOD SPECIMEN Ordering Facility: [facility] Address: [address] [place] [address] Performed By: #### 5 7021-8 #### [facility] CLIA [id number] [address] [place] [address] [place] Lymphocytes (Bld) [#/Vol] 1.25 10*3/uL Normal 1.00-4.00 [facility] Comment on above: Order Comment: Speci men Type: BLOOD SPECIMEN Ordering Facility: [facility] Address: [address] [place] [address] Performed By: #### 5 7021-8 #### [facility] CLIA [id number] [address] [place] [address] [place] Lymphocytes/100 WBC (Bld) 8.9 % Normal [facility] Comment on above: Order Comment: Speci men Type: BLOOD SPECIMEN Ordering Facility: [facility] Address: [address] [place] [address] Performed By: #### 5 7021-8 #### [facility] CLIA [id number] [address] [place] [address] [place] MCH (RBC) [Entitic mass] 26.9 pg Normal 26.0-34.0 [facility] Comment on above: Order Comment: Speci men Type: BLOOD SPECIMEN Ordering Facility: [facility] Address: [address] [place] [address] Performed By: #### 5 7021-8 #### [facility] CLIA [id number] [address] [place] [address] [place] MCHC (RBC) [Mass/Vol] 31.8 g/dL Normal 30.5-36.0 [facility] Comment on above: Order Comment: Speci men Type: BLOOD SPECIMEN Ordering Facility: [facility] Address: [address] [place] [address] Performed By: #### 5 7021-8 #### [facility] CLIA [id number] [address] [place] [address] [place] MCV (RBC) [Entitic vol] 84.6 fL Normal 80.0-100.0 [facility] Comment on above: Order Comment: Speci men Type: BLOOD SPECIMEN Ordering Facility: [facility] Address: [address] [place] [address] Performed By: #### 5 7021-8 #### [facility] CLIA [id number] [address] [place] [address] [place] Monocytes (Bld) [#/Vol] 1.50 10*3/uL High <0.87 [facility] Comment on above: Order Comment: Speci men Type: BLOOD SPECIMEN Ordering Facility: [facility] Address: [address] [place] [address] Performed By: #### 5 7021-8 #### [facility] CLIA [id number] [address] [place] [address] [place] Monocytes/100 WBC (Bld) 10.6 % Normal [facility] Comment on above: Order Comment: Speci men Type: BLOOD SPECIMEN Ordering Facility: [facility] Address: [address] [place] [address] Performed By: #### 5 7021-8 #### [facility] CLIA [id number] [address] [place] [address] [place] Neutrophils (Bld) [#/Vol] 11.26 10*3/uL High 1.45-7.50 [facility] Comment on above: Order Comment: Speci men Type: BLOOD SPECIMEN Ordering Facility: [facility] Address: [address] [place] [address] Performed By: #### 5 7021-8 #### [facility] CLIA [id number] [address] [place] [address] [place] Neutrophils/100 WBC (Bld) 79.9 % Normal [facility] Comment on above: Order Comment: Speci men Type: BLOOD SPECIMEN Ordering Facility: [facility] Address: [address] [place] [address] Performed By: #### 5 7021-8 #### [facility] CLIA [id number] [address] [place] [address] [place] Nucleated RBC (Bld) [#/Vol] 10*3/uL Normal <0.01 [facility] Comment on above: Order Comment: Speci men Type: BLOOD SPECIMEN Ordering Facility: [facility] Address: [address] [place] [address] Performed By: #### 5 7021-8 #### [facility] CLIA [id number] [address] [place] [address] [place] Nucleated RBC/100 WBC (Bld) [Ratio] 0.0 /100 WBC Normal [facility] Comment on above: Order Comment: Speci men Type: BLOOD SPECIMEN Ordering Facility: [facility] Address: [address] [place] [address] Performed By: #### 5 7021-8 #### [facility] CLIA [id number] [address] [place] [address] [place] Platelet mean volume (Bld) [Entitic vol] 9.4 fL Normal 9.0-12.7 [facility] Comment on above: Order Comment: Speci men Type: BLOOD SPECIMEN Ordering Facility: [facility] Address: [address] [place] [address] Performed By: #### 5 7021-8 #### [facility] CLIA [id number] [address] [place] [address] [place] Platelets (Bld) [#/Vol] 151 10*3/uL Normal 150-400 [facility] Comment on above: Order Comment: Speci men Type: BLOOD SPECIMEN Ordering Facility: [facility] Address: [address] [place] [address] Performed By: #### 5 7021-8 #### [facility] CLIA [id number] [address] [place] [address] [place] RBC (Bld) [#/Vol] 3.90 10*6/uL Low 4.20-6.00 [facility] Comment on above: Order Comment: Speci men Type: BLOOD SPECIMEN Ordering Facility: [facility] Address: [address] [place] [address] Performed By: #### 5 7021-8 #### [facility] CLIA [id number] [address] [place] [address] [place] WBC (Bld) [#/Vol] 14.09 10*3/uL High 3.70-11.00 [facility] Comment on above: Order Comment: Speci men Type: BLOOD SPECIMEN Ordering Facility: [facility] Address: [address] [place] [address] Performed By: #### 5 7021-8 #### [facility] CLIA [id number] [address] [place] [address] [place] CONFIRM BLOOD TYPEon 024 ABO A Normal [facility] Comment on above: Order Comment: Speci men Type: BLOOD SPECIMENOrdering Facility: [facility] Address: [address] [place] [address] Performed By: #### C ONABO ####[facility] [id number] [place] [address] [place] Rh Nom (Bld) Positive Normal [facility] Comment on above: Order Comment: Speci men Type: BLOOD SPECIMENOrdering Facility: [facility] Address: [address] [place] [address] Performed By: #### C ONABO ####[facility] BLOOD BANKCLIA [id number] [place] [address] [place] Magnesium SerPl-mCncon 10-28 Magnesium [Mass/Vol] 1.8 mg/dL Normal 1.7-2.3 [facility] Comment on above: Order Comment: Speci men Type: BLOOD SPECIMEN Ordering Facility: [facility] Address: [address] [place] [address] Performed By: #### 2 777-1, 61457-8, 17148-2 #### [facility] CLIA [id number] [address] [place] [address] [place] NURSING PROGon 10-29-2023 NURSING PROG HNO ID: [id number] Author: BAILEY HUTSON RN Service: Nursing Author Type: Registered Nurse Type: Nursing Progress Note Filed: 10/29/2023 18:29 Note Text: [id number] [place] [phone] to notify of patient's current temp of 100.2 F. Will continue to monitor. Normal [facility] NURSING PROG HNO ID: [id number] Author: BAILEY HUTSON RN Service: Nursing Author Type: Registered Nurse Type: Nursing Progress Note Filed: 10/29/2023 17:35 Note Text: Nursing Progress: Topic: RESTRAINT NON-VIOLENT PATIENT NAME: Johnny Devine Patient Location: [place] [address]/[facility] Room: [place] [address] The patient demonstrates Attempting to Remove Medical [...] the patient's safety: Bed in Low/Locked Position, Turbine Technician/Sitter, Diversion Activities, IV/Feeding Bag/Pump Out of [...] 2023 TIME: 5:07 PM Bailey Hutson RN [facility] NURSING PROG HNO ID: [id number] Author: BAILEY HUTSON RN Service: Nursing Author Type: Registered Nurse Type: Nursing Progress Note Filed: 10/29/2023 15:25 Note Text: [id number] [place] [phone] to request indwelling Haskins for incontinence and skin breakdown management. Will continue to monitor. 1523 Patient repeatedly attempt to remove NG tube despite the sitter at the bedside. Primary team notified with request for order for bilateral soft wrist restraint. Will continue to monitor. [facility] NURSING PROG HNO ID: [id number] Author: OLIMPIA MAGALLON RN Service: Nursing Author Type: Registered Nurse Type: Nursing Progress Note Filed: 10/29/2023 13:37 Note Text: Pt resting quietly with patient senior java developer at bedside. Several attempts to reach for NG tube, patient relaxes and moves hand away from from drain if you say hand down Per brother Johnnieion. This has been effective. Pt resting quietly, no facial grimacing, posturing, or guarding. Vss, resp rate even and non labored. Pt has returned to presurgical baseline and is being transferred [facility] to [facility] in stable condition. Opening eyes when name is called. Brothcyrus Mandujano (guardian) updated prior to patient transfer. Normal [facility] OPERATIVE NOon 10-29-2023 OPERATIVE NO HNO ID: [id number] Author: SAMUEL ROBIN MD Service: General Surgery Author Type: Physician Type: Operative Report Filed: 10/29/2023 13:52 Note Text: OPERATIVE/PROCEDURE REPORT LOG ID: [id number] SURGERY/PROCEDURE DATE: 10/29/2023 INCISION/PROCEDURE START TIME: 10:25 AM INCISION CLOSE/PROCEDURE END TIME: 11:40 AM SURGEON(S)/PROCEDURAL IST(S) AND AIRCRAFT ORDNANCE SYSTEMS MECHANIC(S): Surgeon(s) and Role: * Samuel Robin [...] for the entirety of the case. Normal [facility] Phosphate SerPl-mCncon 10-28 Phosphate [Mass/Vol] 2.3 mg/dL Low 2.7-4.8 [facility] Comment on above: Order Comment: Speci men Type: BLOOD SPECIMEN Ordering Facility: [facility] Address: [address] [place] [address] Performed By: #### 2 777-1, 33496-0, 21291-1 #### [facility] CLIA [id number] [address] [place] [address] [place] SEPSIS LACTATEon 10-29-2023 Lactate [Moles/Vol] 1.2 mmol/L Normal <=2.0 [facility] Comment on above: Order Comment: Speci men Type: BLOOD SPECIMENOrdering Facility: [facility] Address: [address] [place] [address] Performed By: #### S LACT ####[facility] [id number] [place] [address] [place] Order Comment: Speci men Type: BLOOD SPECIMEN Ordering Facility: [facility] Address: [address] [place] [address] Performed By: #### 2 777-1, 30763-0, #### [facility] CLIA [id number] [address] [place] [address] [place] Urinalysis complete panel (U )on 10-29-2023 Bacteria LM.HPF (Urine sed) [#/Area] Negative Normal Negative [facility] Comment on above: Order Comment: Speci men Type: BLOOD SPECIMEN Ordering Facility: [facility] Address: [address] [place] [address] Performed By: #### 2 777-1, 22920-3, #### [facility] CLIA [id number] [address] [place] [address] [place] Bilirubin Ql (U) Negative Normal Negative [facility] Comment on above: Order Comment: Speci men Type: BLOOD SPECIMEN Ordering Facility: [facility] Address: [address] [place] [address] Performed By: #### 2 777-1, 76720-6, #### [facility] CLIA [id number] [address] [place] [address] [place] Clarity (Unsp spec) Clear Normal Clear [facility] Comment on above: Order Comment: Speci men Type: BLOOD SPECIMEN Ordering Facility: [facility] Address: [address] [place] [address] Performed By: #### 2 777-1, 69400-9, #### [facility] CLIA [id number] [address] [place] [address] [place] Color (U) Yellow Normal Yellow [facility] Comment on above: Order Comment: Speci men Type: BLOOD SPECIMEN Ordering Facility: [facility] Address: [address] [place] [address] Performed By: #### 2 777-1, 96095-1, #### [facility] CLIA [id number] [address] [place] [address] [place] Epithelial cells LM.HPF (Urine sed) [#/Area] None Seen Normal [facility] Comment on above: Order Comment: Speci men Type: BLOOD SPECIMEN Ordering Facility: [facility] Address: [address] [place] [address] Performed By: #### 2 777-1, , #### [facility] CLIA [id number] [address] [place] [address] [place] Glucose Test strip (U) [Mass/Vol] Negative Normal Negative [facility] Comment on above: Order Comment: Speci men Type: BLOOD SPECIMEN Ordering Facility: [facility] Address: [address] [place] [address] Performed By: #### 2 777-1, 66631-4, #### [facility] CLIA [id number] [address] [place] [address] [place] Hemoglobin Ql (U) 2+ Abnormal Negative [facility] Comment on above: Order Comment: Speci men Type: BLOOD SPECIMEN Ordering Facility: [facility] Address: [address] [place] [address] Performed By: #### 2 777-1, 66016-6, #### [facility] CLIA [id number] [address] [place], [place] [address] [place] Hyaline casts (Urine sed) [#/Area] 0 /[LPF] Normal 0 /LPF [facility] Comment on above: Order Comment: Speci men Type: BLOOD SPECIMEN Ordering Facility: [facility] Address: [address] [place] [address] Performed By: #### 2 777-1, 54942-4, #### [facility] CLIA [id number] [address] [place] [address] [place] Ketones Ql (U) Negative Normal Negative [facility] Comment on above: Order Comment: Speci men Type: BLOOD SPECIMEN Ordering Facility: [facility] Address: [address] [place] [address] Performed By: #### 2 777-1, , #### [facility] CLIA [id number] [address] [place] [address] [place] Leukocyte esterase Test strip Ql (U) Negative Normal Negative [facility] Comment on above: Order Comment: Speci men Type: BLOOD SPECIMEN Ordering Facility: [facility] Address: [address] [place] [address] Performed By: #### 2 777-1, , #### [facility] CLIA [id number] [address] [place], [place] [address] [place] Nitrite Ql (U) Negative Normal Negative [facility] Comment on above: Order Comment: Speci men Type: BLOOD SPECIMEN Ordering Facility: [facility] Address: [address] [place] [address] Performed By: #### 2 777-1, , #### [facility] CLIA [id number] [address] [place] [address] [place] pH (U) 6.5 [pH] Normal <8.5 [facility] Comment on above: Order Comment: Speci men Type: BLOOD SPECIMEN Ordering Facility: [facility] Address: [address] [place] [address] Performed By: #### 2 777-1, 11536-5, #### [facility] CLIA [id number] [address] [place] [address] [place] Protein (U) [Mass/Vol] Trace Abnormal Negative [facility] Comment on above: Order Comment: Speci men Type: BLOOD SPECIMEN Ordering Facility: [facility] Address: [address] [place] [address] Performed By: #### 2 777-1, 95949-6, #### [facility] CLIA [id number] [address] [place] [address] [place] RBC LM.HPF (Urine sed) [#/Area] 6-10 /HPF Abnormal 0-2 /HPF [facility] Comment on above: Order Comment: Speci men Type: BLOOD SPECIMEN Ordering Facility: [facility] Address: [address] [place] [address] Performed By: #### 2 777-1, , #### [facility] CLIA [id number] [address] [place] [address] [place] Specific gravity (U) [Rel density] 1.021 Normal 1.005-1.030 [facility] Comment on above: Order Comment: Speci men Type: BLOOD SPECIMEN Ordering Facility: [facility] Address: [address] [place] [address] Performed By: #### 2 777-1, , #### [facility] CLIA [id number] [address] [place] [address] [place] Urobilinogen Ql (U) 0.2 EU/dL Normal 0.2-1.0 EU/dL [facility] Comment on above: Order Comment: Speci men Type: BLOOD SPECIMEN Ordering Facility: [facility] Address: [address] [place] [address] Performed By: #### 2 777-1, 09293-8, #### [facility] CLIA [id number] [address] [place] [address] [place] WBC LM.HPF (Urine sed) [#/Area] 0-5 /HPF Normal 0-5 /HPF [facility] Comment on above: Order Comment: Speci men Type: BLOOD SPECIMEN Ordering Facility: [facility] Address: [address] [place] [address] Performed By: #### 2 777-1, 30412-6, #### [facility] CLIA [id number] [address] [place] [address] [place] XR CHEST 1V [...] unremarkable. Other: . IMPRESSION: See result. Oracle Database Developer: SUSI Transcribe Date/Time: Oct 29 2023 12:20A Dictated by : SHEA WORTHY MD This examination was interpreted and the report reviewed and electronically signed by: SHEA WORTHY MD on Oct 29 2023 12:22AM EST [id number] Normal [facility] aPTT PPPon 10-29-2023 aPTT Coag (PPP) [Time] 26.3 s Normal 23.0-32.4 [facility] Comment on above: Order Comment: Speci men Type: BLOOD SPECIMEN Ordering Facility: [facility] Address: [address] [place] [address] Performed By: #### 2 777-1, 20643-6, #### [facility] CLIA [id number] [address] [place] [address] [place] Basic metabolic 2000 panelon 10-28-2023 Anion gap [Moles/Vol] 12 mmol/L Normal 9-18 [facility] Comment on above: Order Comment: Speci men Type: BLOOD SPECIMEN Ordering Facility: [facility] Address: [address] [place] [address] Performed By: #### 2 777-1, 29346-8, #### [facility] CLIA [id number] [address] [place] [address] [place] Calcium [Mass/Vol] 7.8 mg/dL Low 8.5-10.2 [facility] Comment on above: Order Comment: Speci men Type: BLOOD SPECIMEN Ordering Facility: [facility] Address: [address] [place] [address] Performed By: #### 2 777-1, 51584-7, #### [facility] CLIA [id number] [address] [place] [address] [place] Chloride [Moles/Vol] 110 mmol/L High 97-105 [facility] Comment on above: Order Comment: Speci men Type: BLOOD SPECIMEN Ordering Facility: [facility] Address: [address] [place] [address] Performed By: #### 2 777-1, 66602-0, #### [facility] CLIA [id number] [address] [place] [address] [place] CO2 [Moles/Vol] 15 mmol/L Low 22-30 [facility] Comment on above: Order Comment: Specdeshawn zuñiga Type: BLOOD SPECIMEN Ordering Facility: [facility] Address: [address] [place] [address] Performed By: #### 2 777-1, 51346-6, #### [facility] CLIA [id number] [address] [place] [address] [place] Creatinine [Mass/Vol] 0.72 mg/dL Low 0.73-1.22 [facility] Comment on above: Order Comment: Speci yogesh Type: BLOOD SPECIMEN Ordering Facility: [facility] Address: [address] [place] [address] Performed By: #### 2 777-1, 11986-1, #### [facility] CLIA [id number] [address] [place] [address] [place] Creatinine and Glomerular filtration rate.predicted panel (S/P/Bld) 125 mL/min/1.73m??? Normal >=60 [facility] Comment on above: Order Comment: Sana zuñiga Type: BLOOD SPECIMEN Ordering Facility: [facility] Address: [address] [place] [address] Result Comment: Lor mated Glomerular Filtration Rate [...] actual GFR. Performed By: #### 2 777-1, 01892-4, #### [facility] CLIA [id number] [address] [place] [address] [place] Glucose [Mass/Vol] 116 mg/dL High 74-99 [facility] Comment on above: Order Comment: Sana zuñiga Type: BLOOD SPECIMEN Ordering Facility: [facility] Address: [address] [place] [address] Result Comment: The [place] Diabetes Association (ADA) provides guidance for cutoff [...] Standards of Medical Care in Diabetes 2016, [place] [employer]. Diabetes Care. 2016.39(Suppl 1). Performed By: #### 2 777-1, 07176-3, #### [facility] CLIA [id number] [address] [place] [address] [place] Potassium [Moles/Vol] 3.9 mmol/L Normal 3.7-5.1 [facility] Comment on above: Order Comment: Sana zuñiga Type: BLOOD SPECIMEN Ordering Facility: [facility] Address: [address] [place] [address] Performed By: #### 2 777-1, 99193-4, #### [facility] CLIA [id number] [address] [place] [address] [place] Sodium [Moles/Vol] 137 mmol/L Normal 136-144 [facility] Comment on above: Order Comment: Sana zuñiga Type: BLOOD SPECIMEN Ordering Facility: [facility] Address: [address] [place] [address] Performed By: #### 2 777-1, 62208-8, #### [facility] CLIA [id number] [address] [place] [address] [place] Urea nitrogen [Mass/Vol] 17 mg/dL Normal 9-24 [facility] Comment on above: Order Comment: Speci men Type: BLOOD SPECIMEN Ordering Facility: [facility] Address: [address] [place] [address] Performed By: #### 2 777-1, 96731-4, #### [facility] CLIA [id number] [address] [place] [address] [place] CBC W Auto Differential pane l (Bld)on 10-28-2023 Basophils (Bld) [#/Vol] 10*3/uL Normal <0.11 [facility] Comment on above: Order Comment: Speci men Type: BLOOD SPECIMEN Ordering Facility: [facility] Address: [address] [place] [address] Performed By: #### 2 777-1, 99660-8, #### [facility] CLIA [id number] [address] [place] [address] [place] Basophils/100 WBC (Bld) 0.1 % Normal [facility] Comment on above: Order Comment: Speci men Type: BLOOD SPECIMEN Ordering Facility: [facility] Address: [address] [place] [address] Performed By: #### 2 777-1, 68184-3, #### [facility] CLIA [id number] [address] [place] [address] [place] Differential cell count method Nom (Bld) Auto Normal [facility] Comment on above: Order Comment: Speci men Type: BLOOD SPECIMEN Ordering Facility: [facility] Address: [address] [place] [address] Performed By: #### 2 777-1, 19452-1, #### [facility] CLIA [id number] [address] [place] [address] [place] Eosinophils (Bld) [#/Vol] 10*3/uL Normal <0.46 [facility] Comment on above: Order Comment: Speci men Type: BLOOD SPECIMEN Ordering Facility: [facility] Address: [address] [place] [address] Performed By: #### 2 777-1, 77994-7, #### [facility] CLIA [id number] [address] [place] [address] [place] Eosinophils/100 WBC (Bld) 0.0 % Normal [facility] Comment on above: Order Comment: Speci men Type: BLOOD SPECIMEN Ordering Facility: [facility] Address: [address] [place] [address] Performed By: #### 2 777-1, 45908-9, #### [facility] CLIA [id number] [address] [place] [address] [place] Erythrocyte distribution width (RBC) [Ratio] 14.4 % Normal 11.5-15.0 [facility] Comment on above: Order Comment: Speci men Type: BLOOD SPECIMEN Ordering Facility: [facility] Address: [address] [place] [address] Performed By: #### 2 777-1, , #### [facility] CLIA [id number] [address] [place] [address] [place] Hematocrit (Bld) [Volume fraction] 38.3 % Low 39.0-51.0 [facility] Comment on above: Order Comment: Speci men Type: BLOOD SPECIMEN Ordering Facility: [facility] Address: [address] [place] [address] Performed By: #### 2 777-1, 72618-2, #### [facility] CLIA [id number] [address] [place] [address] [place] Hemoglobin (Bld) [Mass/Vol] 12.0 g/dL Low 13.0-17.0 [facility] Comment on above: Order Comment: Speci men Type: BLOOD SPECIMEN Ordering Facility: [facility] Address: [address] [place] [address] Performed By: #### 2 777-1, 75329-0, #### [facility] CLIA [id number] [address] [place] [address] [place] Immature granulocytes (Bld) [#/Vol] 0.08 10*3/uL Normal <0.10 [facility] Comment on above: Order Comment: Speci men Type: BLOOD SPECIMEN Ordering Facility: [facility] Address: [address] [place] [address] Performed By: #### 2 777-1, 27017-5, #### [facility] CLIA [id number] [address] [place] [address] [place] Immature granulocytes/100 WBC (Bld) 0.6 % Normal [facility] Comment on above: Order Comment: Speci men Type: BLOOD SPECIMEN Ordering Facility: [facility] Address: [address] [place] [address] Performed By: #### 2 777-1, 62238-0, #### [facility] CLIA [id number] [address] [place] [address] [place] Lymphocytes (Bld) [#/Vol] 1.19 10*3/uL Normal 1.00-4.00 [facility] Comment on above: Order Comment: Speci men Type: BLOOD SPECIMEN Ordering Facility: [facility] Address: [address] [place] [address] Performed By: #### 2 777-1, 04470-0, #### [facility] CLIA [id number] [address] [place] [address] [place] Lymphocytes/100 WBC (Bld) 8.2 % Normal [facility] Comment on above: Order Comment: Speci men Type: BLOOD SPECIMEN Ordering Facility: [facility] Address: [address] [place] [address] Performed By: #### 2 777-1, 02442-7, #### [facility] CLIA [id number] [address] [place] [address] [place] MCH (RBC) [Entitic mass] 26.5 pg Normal 26.0-34.0 [facility] Comment on above: Order Comment: Speci men Type: BLOOD SPECIMEN Ordering Facility: [facility] Address: [address] [place] [address] Performed By: #### 2 777-1, 48434-7, #### [facility] CLIA [id number] [address] [place] [address] [place] MCHC (RBC) [Mass/Vol] 31.3 g/dL Normal 30.5-36.0 [facility] Comment on above: Order Comment: Speci men Type: BLOOD SPECIMEN Ordering Facility: [facility] Address: [address] [place] [address] Performed By: #### 2 777-1, 97644-6, #### [facility] CLIA [id number] [address] [place] [address] [place] MCV (RBC) [Entitic vol] 84.5 fL Normal 80.0-100.0 [facility] Comment on above: Order Comment: Speci men Type: BLOOD SPECIMEN Ordering Facility: [facility] Address: [address] [place] [address] Performed By: #### 2 777-1, 70508-1, #### [facility] CLIA [id number] [address] [place] [address] [place] Monocytes (Bld) [#/Vol] 1.48 10*3/uL High <0.87 [facility] Comment on above: Order Comment: Speci men Type: BLOOD SPECIMEN Ordering Facility: [facility] Address: [address] [place] [address] Performed By: #### 2 777-1, 96685-7, #### [facility] CLIA [id number] [address] [place] [address] [place] Monocytes/100 WBC (Bld) 10.2 % Normal [facility] Comment on above: Order Comment: Speci men Type: BLOOD SPECIMEN Ordering Facility: [facility] Address: [address] [place] [address] Performed By: #### 2 777-1, 53734-8, #### [facility] CLIA [id number] [address] [place] [address] [place] Neutrophils (Bld) [#/Vol] 11.69 10*3/uL High 1.45-7.50 [facility] Comment on above: Order Comment: Speci men Type: BLOOD SPECIMEN Ordering Facility: [facility] Address: [address] [place] [address] Performed By: #### 2 777-1, 82803-6, #### [facility] CLIA [id number] [address] [place] [address] [place] Neutrophils/100 WBC (Bld) 80.9 % Normal [facility] Comment on above: Order Comment: Speci men Type: BLOOD SPECIMEN Ordering Facility: [facility] Address: [address] [place] [address] Performed By: #### 2 777-1, 43707-8, #### [facility] CLIA [id number] [address] [place] [address] [place] Nucleated RBC (Bld) [#/Vol] 10*3/uL Normal <0.01 [facility] Comment on above: Order Comment: Speci men Type: BLOOD SPECIMEN Ordering Facility: [facility] Address: [address] [place] [address] Performed By: #### 2 777-1, 11913-5, #### [facility] CLIA [id number] [address] [place] [address] [place] Nucleated RBC/100 WBC (Bld) [Ratio] 0.0 /100 WBC Normal [facility] Comment on above: Order Comment: Speci men Type: BLOOD SPECIMEN Ordering Facility: [facility] Address: [address] [place] [address] Performed By: #### 2 777-1, 80048-9, #### [facility] CLIA [id number] [address] [place] [address] [place] Platelet mean volume (Bld) [Entitic vol] 9.3 fL Normal 9.0-12.7 [facility] Comment on above: Order Comment: Speci men Type: BLOOD SPECIMEN Ordering Facility: [facility] Address: [address] [place] [address] Performed By: #### 2 777-1, 12312-1, #### [facility] CLIA [id number] [address] [place] [address] [place] Platelets (Bld) [#/Vol] 180 10*3/uL Normal 150-400 [facility] Comment on above: Order Comment: Speci men Type: BLOOD SPECIMEN Ordering Facility: [facility] Address: [address] [place] [address] Performed By: #### 2 777-1, 99748-7, #### [facility] CLIA [id number] [address] [place] [address] [place] RBC (Bld) [#/Vol] 4.53 10*6/uL Normal 4.20-6.00 [facility] Comment on above: Order Comment: Speci men Type: BLOOD SPECIMEN Ordering Facility: [facility] Address: [address] [place] [address] Performed By: #### 2 777-1, 15120-2, #### [facility] CLIA [id number] [address] [place] [address] [place] WBC (Bld) [#/Vol] 14.46 10*3/uL High 3.70-11.00 [facility] Comment on above: Order Comment: Speci men Type: BLOOD SPECIMEN Ordering Facility: [facility] Address: [address] [place] [address] Performed By: #### 2 777-1, 06402-9, #### [facility] CLIA [id number] [address] [place] [address] [place] HISTORY PHYSICALon HISTORY PHYSICAL HNO ID: [id number] Author: SAMUEL ROBIN MD Service: General Surgery [...] No a (more content not included)... Normal [facility] Magnesium [Mass/Vol] 1.8 mg/dL Normal 1.7-2.3 [facility] Comment on above: Order Comment: Sana zuñiga Type: BLOOD SPECIMEN Ordering Facility: [facility] Address: [address] [place] [address] Performed By: #### 2 777-1, 59295-0, #### [facility] CLIA [id number] [address] [place] [address] [place] PT panel Coag (PPP)on 2023 INR Coag (PPP) [Relative time] 1.2 {INR} Normal 0.9-1.3 [facility] Comment on above: Order Comment: Sana zuñiga Type: BLOOD SPECIMEN Ordering Facility: [facility] Address: [address] [place] [address] Result Comment: Winnie min K Antagonist (VKA) Therapeutic Range: INR 2 to 3 (Target INR of 2.5) Note: For patients treated with VKA drugs, such as warfarin, the [place] [employer] 2012 Guideline recommends [...] Chest 2012, 141:7S-47S Jonny RA, et al. [facility] 2017, 70: 252-289 Performed By: #### 2 777-1, 54995-4, #### [facility] CLIA [id number] [address] [place] [address] [place] PT Coag (PPP) [Time] 12.3 s Normal 9.7-13.0 [facility] Comment on above: Order Comment: Speci men Type: BLOOD SPECIMEN Ordering Facility: [facility] Address: [address] [place] [address] Performed By: #### 2 777-1, 24462-9, #### [facility] CLIA [id number] [address] [place] [address] [place] Phosphate SerPl-mCncon 10-27 Phosphate [Mass/Vol] 3.2 mg/dL Normal 2.7-4.8 [facility] Comment on above: Order Comment: Speci men Type: BLOOD SPECIMEN Ordering Facility: [facility] Address: [address] [place] [address] Performed By: #### 2 777-1, 43433-3, #### [facility] CLIA [id number] [address] [place] [address] [place] SEPSIS LACTATEon 10-28-2023 Lactate [Moles/Vol] 2.0 mmol/L Normal <=2.0 [facility] Comment on above: Order Comment: Speci men Type: BLOOD SPECIMENOrdering Facility: [facility] Address: [address] [place] [address] Performed By: #### S LACT ####[facility] [id number] [place] [address] [place] TYPE + SCREENon 10-28-2023 ABO A Normal [facility] Comment on above: Order Comment: Speci men Type: BLOOD SPECIMEN Ordering Facility: [facility] Address: [address] [place] [address] Performed By: #### 2 4321-2, 49375-7, 2777-1 #### [facility] CLIA [id number] [address] [place] [address] [place] HISTORICAL AB SCR STATUS Negative Normal [facility] Comment on above: Order Comment: Speci men Type: BLOOD SPECIMEN Ordering Facility: [facility] Address: [address] [place] [address] Performed By: #### 2 4321-2, 58812-9, 2777-1 #### [facility] CLIA [id number] [address] [place], [place] [address] [place] Rh Nom (Bld) Positive Normal [facility] Comment on above: Order Comment: Speci men Type: BLOOD SPECIMEN Ordering Facility: [facility] Address: [address] [place] [address] Performed By: #### 2 4321-2, 05172-3, 2777-1 #### [facility] CLIA [id number] [address] [place] [address] [place] TYPE AND SCREEN EXPIRATION 10/31/2023 23:59 Normal [facility] Comment on above: Order Comment: Speci men Type: BLOOD SPECIMEN Ordering Facility: [facility] Address: [address] [place] [address] Performed By: #### 2 4321-2, 26730-4, 2777-1 #### [facility] CLIA [id number] [address] [place] [address] [place] XR ABDOMEN 1V [...] lower quadrant on the outside CT). Oracle Database Developer: SUSI Transcribe Date/Time: Oct 28 2023 5:30P Dictated by : WALTER BURGER MD This examination was interpreted and the report reviewed and electronically signed by: WALTER BURGER MD on Oct 28 2023 5:47PM EST [id number] N Normal [facility] Basic metabolic 2000 panelOr dered [...] Inclusion of Race in Diagnosing Kidney Disease. [place] Journal of Kidney Diseases 202;79(2):268-88.e1. 2. N Engl J Med 1 Vol. 385 Issue 19 Pages 2793-2525 Glucose [Mass/Vol] 84 mg/dL 74 - 109 [...] vol] 9.1 fL 7.5 - 11.2 fL [facility] Platelets (Bld) [#/Vol] [facility] Comment on above: Platelet cannot be q uantified due to the presence of platelet clumps. Platelet estimate appears normal. RBC (Bld) [#/Vol] 4.59 10*6/uL [facility] WBC (Bld) [#/Vol] 8.6 10*3/uL 4.5 - 11.5 K/uL [facility] CT Head WO contrastOrdered B y: David Kay on 07-16-2023 CT DLP 1126.71 (mGy.cm) [facility] Work Phone: CT Series HEAD W/O,HEAD W/O [facility] Work Phone: CTDI VOL 0.34 (mGy),47.31 (mGy) [facility] Work Phone: PHANTOM TYPE IEC Head Dosimetry Phantom,IEC Head Dosimetry Phantom [facility] Work Phone: [facility] Work Phone: CT Head WO contraston [...] in the left caudate nucleus. MACRO: None [facility] Radiology Study observation (narrative) [facility] MAGNESIUMon 07-16-2023 Interpretation and review of laboratory results Normal [facility] Magnesium [Mass/Vol] 2.1 mg/dL 1.6 - 2 .8 mg/dL [facility] Lithiumon 07-06-2023 Jones [Moles/Vol] 0.9 mmol/L Invalid Interpretation Code 0.5-1.2 [facility] Comment on above: Result Comment: A co ncentration of 0.5-0.8 mmol/L is advised for long-term use; concentrations of up to 1.2 mmol/L may be necessary during acute treatment. Detection Limit = 0.1 <0.1 indicates None Detected Performed at: [facility] [id number] PhD Agata Narayan Performed By: #### 2 269227, 8709613, 8036621, 0067717, 529820632, 4107973, 1635683, 36970014, 7441729 ####[facility] [address] [place] [address] CBC w/Indiceson 07-04-2023 Erythrocyte distribution width (RBC) [Ratio] 13.8 % Normal 10.9-14.2 [facility] Comment on above: Performed By: #### 2 532359, 8555925, 7081665, 1953083, 875008911, 0221628, 6423035, 87486726, 4928182 #### [facility] [address] [place] [address] Hematocrit (Bld) [Volume fraction] 38.1 % Normal 37.7-49.0 [facility] Comment on above: Performed By: #### 2 189505, 7427537, 9269348, 2447615, 015850757, 3402911, 7905891, 02989808, 2200591 #### [facility] [address] [place] [address] Hemoglobin (Bld) [Mass/Vol] 12.7 g/dL Low 13.5-17.5 [facility] Comment on above: Performed By: #### 2 159642, 0115225, 7984038, 5122175, 797118875, 5292956, 1028998, 73864022, 2169776 #### [facility] [address] [place] [address] MCH (RBC) [Entitic mass] 27.6 pg Normal 27.0-34.0 [facility] Comment on above: Performed By: #### 2 597521, 4054507, 3694850, 0331911, 982227836, 2456288, 0038744, 02332074, 3428284 #### [facility] [address] [place] [address] MCHC (RBC) [Mass/Vol] 33.3 g/dL Normal 31.4-36.0 [facility] Comment on above: Performed By: #### 2 082394, 7118258, 7354039, 4122598, 385858871, 6656719, 5227284, 39641038, 1970024 #### [facility] [address] [place] [address] MCV (RBC) [Entitic vol] 83.0 fL Normal 80.0-100.0 [facility] Comment on above: Performed By: #### 2 362687, 8335065, 2321340, 8435716, 235740034, 8821869, 1417987, 51121262, 6825666 #### [facility] [address] [place] [address] Platelet mean volume (Bld) [Entitic vol] 8.5 fL Normal 6.4-10.8 [facility] Comment on above: Performed By: #### 2 015233, 7154912, 7290125, 7545757, 743816047, 8606771, 7430311, 28561715, 2610583 #### [facility] [address] [place] [address] Platelets (Bld) [#/Vol] 175.0 E9/L Normal 150.0-500.0 [facility] Comment on above: Performed By: #### 2 485052, 3170221, 6496287, 2943426, 183353734, 6284194, 2625129, 69918901, 6677977 #### [facility] [address] [place] [address] RBC (Bld) [#/Vol] 4.6 E12/L Normal 4.3-5.9 [facility] Comment on above: Performed By: #### 2 341449, 7264984, 9521520, 7992055, 743444213, 2444508, 3016227, 78791322, 7830557 #### [facility] [address] [place] [address] WBC corrected for nucl RBC Auto (Bld) [#/Vol] 5.9 E9/L Normal 4.0-11.0 [facility] Comment on above: Performed By: #### 2 135756, 6536611, 5060460, 7648974, 581354485, 9890029, 6863735, 53363797, 5762958 #### [facility] [address] [place] [address] CHEMISTRYOrdered By: SYSTEM SYSTEM on 07-04-2023 25-hydroxyvitamin D3 [Mass/Vol] 33.7 ng/mL Normal 30.0 - 100.0 ng/mL [facility] Comment on above: Interpretive Data: Vitamin D deficiency has been defined as a level of serum 25-OH vitamin D less than 20 ng/mL (1,2) by the [place] [employer] and an Endocrine Society practice guideline. The Endocrine Society further defined vitamin D insufficiency as a level between 21 and 29 ng/mL (2). 1. IOM ([place] [employer]). 2010. Dietary reference intakes for [...] 118 mL/min/1.73 m2 Normal >=59mL/min/1 .73 m2 [facility] Chem S Comment on above: Interpretive Data: [...] 2.75 m[IU]/L Normal 0.34 - 5.60 mcIU/mL [facility] Remisol Urea nitrogen [Mass/Vol] 20 mg/dL Normal 5 - 21 mg/dL [facility] Remisol Urea nitrogen/Creatinine [Mass ratio] 22 mg/mg High 10 - 20 [facility] Remisol Valproate [Moles/Vol] 79 microgram/mL Normal 50 - 99 mcg/mL [facility] Remisol CMPon 07-04-2023 Albumin [Mass/Vol] 3.7 g/dL Normal 3.3-5.0 [facility] Comment on above: Performed By: #### 2 711386, 2937218, 7907064, 6636979, 173353613, 6734262, 7925834, 77144870, 1665567 #### [facility] [address] [place] [address] Albumin/Globulin (S) [Mass conc ratio] 1.0 Low 1.1-2.2 [facility] Comment on above: Performed By: #### 2 123097, 7973412, 1927543, 9626800, 436806407, 6448422, 8937298, 66573230, 7670519 #### [facility] [address] [place] [address] ALP [Catalytic activity/Vol] 37 Int._Unit/L Normal 21-98 [facility] Comment on above: Performed By: #### 2 229435, 2190963, 8338492, 3380362, 215724473, 4201610, 8595720, 72811980, 1380919 #### [facility] [address] [place] [address] ALT No additional P-5'-P [Catalytic activity/Vol] 15 Int._Unit/L Normal 6-46 [facility] Comment on above: Performed By: #### 2 433039, 5259829, 2801139, 3634558, 824616596, 2747916, 1125325, 84754600, 9671971 #### [facility] [address] [place] [address] Anion gap [Moles/Vol] 12 mmol/L Normal 6-16 [facility] Comment on above: Performed By: #### 2 296676, 0077683, 2807425, 6935997, 027900759, 8009601, 4875236, 63498828, 2343179 #### [facility] [address] [place] [address] AST [Catalytic activity/Vol] 22 Int._Unit/L Normal 5-43 [facility] Comment on above: Performed By: #### 2 311257, 6422198, 0704628, 9078647, 259468171, 6796695, 9372799, 41983566, 2773950 #### [facility] [address] [place] [address] Bilirubin [Mass/Vol] 0.1 mg/dL Normal 0.0-1.1 [facility] Comment on above: Performed By: #### 2 624498, 5853013, 7029517, 2754024, 312150395, 9169462, 4284086, 58883382, 1364841 #### [facility] [address] [place] [address] Calcium [Mass/Vol] 9.7 mg/dL Normal 8.9-11.1 [facility] Comment on above: Performed By: #### 2 775976, 2490449, 3243053, 8573991, 285911312, 8999919, 7676064, 57217274, 2438610 #### [facility] [address] [place] [address] Chloride [Moles/Vol] 108 mmol/L Normal 101-111 [facility] Comment on above: Performed By: #### 2 085284, 4042440, 0849476, 6343212, 840287142, 0923355, 4720463, 41686821, 0755233 #### [facility] [address] [place] [address] CO2 [Moles/Vol] 23 mmol/L Normal 21-31 [facility] Comment on above: Performed By: #### 2 003762, 3732912, 6225987, 9249458, 854143924, 6413024, 2646259, 11362432, 4922899 #### [facility] [address] [place] [address] Creatinine [Mass/Vol] 0.9 mg/dL Normal 0.5-1.3 [facility] Comment on above: Performed By: #### 2 771734, 2013799, 0855669, 9954559, 378582694, 1384694, 8310946, 48003894, 9333510 #### [facility] [address] [place] [address] Globulin (S) [Mass/Vol] 3.8 g/dL Normal 1.4-4.0 [facility] Comment on above: Performed By: #### 2 142119, 2518266, 3498972, 6689670, 153407531, 0159720, 0680434, 50611096, 4105112 #### [facility] [address] [place] [address] Glucose [Mass/Vol] 86 mg/dL Normal 55-199 [facility] Comment on above: Result Comment: If t his glucose result represents a fasting glucose, interpretation should refer to the following reference range: 55-99 mg/dL Performed By: #### 2 788730, 4803779, 9627306, 7614765, 224425357, 6578940, 2962347, 46432249, 8103704 #### [facility] [address] [place] [address] Potassium [Moles/Vol] 4.3 mmol/L Normal 3.5-5.3 [facility] Comment on above: Performed By: #### 2 509575, 8561730, 8149978, 4759563, 371415420, 2071578, 3530963, 98775951, 8868745 #### [facility] [address] [place] [address] Protein [Mass/Vol] 7.5 g/dL Normal 6.0-7.8 [facility] Comment on above: Performed By: #### 2 593946, 4995114, 7843916, 3255466, 231708680, 0566000, 1503265, 31871564, 9343274 #### [facility] [address] [place] [address] Sodium [Moles/Vol] 139 mmol/L Normal 135-145 [facility] Comment on above: Performed By: #### 2 260436, 0901999, 3162462, 1634260, 922764748, 7884778, 8667226, 41904113, 1744374 #### [facility] [address] [place] [address] Urea nitrogen [Mass/Vol] 20 mg/dL Normal 5-21 [facility] Comment on above: Performed By: #### 2 852262, 8659764, 0795481, 3770776, 113598596, 1288744, 5206943, 69454120, 6951777 #### [facility] [address] [place] [address] Urea nitrogen/Creatinine [Mass ratio] 22 No Units High 10-20 [facility] Comment on above: Performed By: #### 2 371261, 3727018, 5836271, 5260003, 563798693, 4897966, 6576728, 52220305, 0663154 #### [facility] [address] [place] [address] Free T4on 07-04-2023 Free T4 [Mass/Vol] 0.70 ng/dL Normal 0.58-1.64 [facility] Comment on above: Performed By: #### 2 080433, 1905853, 8414465, 9338797, 064370087, 3461515, 1806814, 63192194, 9156877 #### [facility] [address] [place] [address] HEMATOLOGYOrdered By: Jersey Arnett on 07-04-2023 Erythrocyte [...] 8.5 fL Normal 6.4 - 10.8 fL [facility] HemeAutoSS Platelets (Bld) [#/Vol] 175.0 E9/L Normal 150.0 - 500.0 E9/L [facility] HemeAutoSS RBC (Bld) [#/Vol] 4.6 E12/L Normal 4.3 - 5.9 E12/L [facility] HemeAutoSS WBC corrected for nucl RBC Auto (Bld) [#/Vol] 5.9 E9/L Normal 4.0 - 11.0 E9/L [facility] HemeAutoSS Lipid Panelon 07-04-2023 Cholesterol [Mass/Vol] 145 mg/dL Normal 120-200 [facility] Comment on above: Performed By: #### 2 300773, 4065701, 8213444, 0676525, 358911790, 7662180, 3392939, 52134490, 2238906 #### [facility] [address] [place] [address] Cholesterol in HDL [Mass/Vol] 40 mg/dL Invalid Interpretation Code [facility] Comment on above: Result Comment: HDL > or equal to 60 mg/dL: Low cardiovascular risk HDL < 40 mg/dL : High cardiovascular risk Performed By: #### 2 191013, 3136524, 4467273, 0873236, 007224917, 5493189, 4526429, 38677079, 8485917 #### [facility] [address] [place] [address] Cholesterol in LDL [Mass/Vol] 86 mg/dL Normal <=129 [facility] Comment on above: Performed By: #### 2 035417, 6889808, 4658173, 7633324, 652507421, 3976494, 8163870, 29770344, 9677865 #### [facility] [address] [place] [address] Cholesterol in VLDL [Mass/Vol] 27 mg/dL Normal 7-40 [facility] Comment on above: Performed By: #### 2 267663, 0513945, 1420550, 8593350, 496890035, 9809247, 0826814, 63543686, 7673847 #### [facility] [address] [place] [address] Triglyceride [Mass/Vol] 133 mg/dL Normal <=149 [facility] Comment on above: Performed By: #### 2 185728, 3402483, 3776080, 4490126, 201640480, 2665911, 3871161, 47019612, 2140698 #### [facility] [address] [place] [address] Physician Orderon 07-04-2023 Physician Order [id number]# 1.00TIFF Normal [facility] TSHon 07-04-2023 TSH Qn 2.75 m[IU]/L Normal 0.34-5.60 [facility] Comment on above: Performed By: #### 2 388090, 8993532, 2780573, 9365188, 474994826, 9828839, 4871029, 47579942, 7253025 #### [facility] [address] [place] [address] Valproic Acidon 07-04-2023 Valproate [Moles/Vol] 79 microgram/mL Normal 50-99 [facility] Comment on above: Performed By: #### 2 232988, 3223136, 8059334, 2973553, 346402095, 5729490, 8567062, 59007971, 3724840 #### [facility] [address] [place] [address] Vitamin D 25 Hydroxyon 07-04 25-hydroxyvitamin D3 [Mass/Vol] 33.7 ng/mL Normal 30.0-100.0 [facility] Comment on above: Result Comment: Vit alfredo D deficiency has been defined as a level of serum 25-OH vitamin D less than 20 ng/mL (1,2) by the [place] of Medicine and an Endocrine Society practice guideline. The Endocrine Society further defined vitamin D insufficiency as a level between 21 and 29 ng/mL (2). 1. IOM ([place] of Medicine). 2010. Dietary reference intakes for calcium and D. [place]: The National Academies Press. 2. Denia MF, Marcelino CHAIDEZ, Ann GARVEY, et al. Evaluation, treatment, and prevention of vitamin D deficiency: an Endocrine Society clinical practice guideline. JCEM. 2010; 96 (7):1911-30. Performed By: #### 2 [id number], [id number], [id number], [id number], [id number], [id number] #### [facility] [address] [place] [address] eGFRon 07-04-2023 GFR/1.73 sq M.predicted among non-blacks MDRD (S/P/Bld) [Vol rate/Area] 118 mL/min/1.73 m2 Normal >=59 [facility] Comment on above: Order Comment: Order added by Discern Expert. Result Comment: [facility] A[facility] Teacher jenni kidney disease could be indicated at eGFR's of less than 60 mL/min/1.73m2. Kidney failure is indicated at less than 15 mL/min/1.73m2. Performed By: #### 2 [id number], [id number], [id number], [id number], [id number], [id number], [id number] #### [facility] [address] [place] [address] XR Chest PA and Lateralon EXAMINATION: XR [...] indicated with dedicated abdominal radiograph/CT. MACRO: None [facility] Radiology Study observation (narrative) [facility] XR Chest PA and LateralOrder ed By: Krystal Epstein on 06-22-2023 [facility] Work Phone: DEPAKENE/ VALPROIC ACIDon DEPAKENE 59.3 ug/ml Normal 50.0-100.0 [facility] Comment on above: Performed By: #### V ALP #### [facility] [address] [place] [address] Dr. Nikky King DEPAKENE/ VALPROIC ACIDon DEPAKENE 43.6 ug/ml Critically low 50.0-100.0 [facility] Comment on above: Performed By: #### V ALP #### [facility] [address] [place] [address] Dr. Nikky King LITHIUMon 12-06-2022 Jones (Eskalith(R)), Serum 0.8 mmol/L Normal 0.5-1.2 [facility] Comment on above: Result Comment: A co ncentration of 0.5-0.8 mmol/L is advised for long-term use; concentrations of up to 1.2 mmol/L may be necessary during acute treatment. Detection Limit = 0.1 <0.1 indicates None Detected Performed By: #### L ITHIUM #### [facility] [address] [place] [address] Dr. Nikky King DEPAKENE/ VALPROIC ACIDon DEPAKENE 61.7 ug/ml Normal 50.0-100.0 [facility] Comment on above: Performed By: #### V ALP #### [facility] [address] [place] [address] Dr. Nikky King LITHIUMon 11-23-2022 Jones (Eskalith(R)), Serum 0.9 mmol/L Normal 0.5-1.2 [facility] Comment on above: Result Comment: A co ncentration of 0.5-0.8 mmol/L is advised for long-term use; concentrations of up to 1.2 mmol/L may be necessary during acute treatment. Detection Limit = 0.1 <0.1 indicates None Detected Performed By: #### L ITHIUM #### [facility] [address] [place] [address] Dr. Nikky King CALCIUMon 08-22-2022 Calcium [Mass/Vol] 9.6 mg/dL Normal 8.5-10.1 [facility] Comment on above: Performed By: #### C A, CREA #### [facility] [address] [place] [address] Dr. Nikky King CREATININEon 08-22-2022 Creatinine [Mass/Vol] 0.84 mg/dL Normal 0.70-1.30 [facility] Comment on above: Performed By: #### C A, CREA #### [facility] [address] [place] [address] Dr. Nikky King EGFR-AF BURMESE >60 Normal >=60 [facility] Comment on above: Performed By: #### C A, CREA #### [facility] [address] [place] [address] Dr. Nikky King EGFR-NON AF BURMESE >60 Normal >=60 [facility] Comment on above: Performed By: #### C A, CREA #### [facility] [address] [place] [address] Dr. Nikky King LITHIUMon 07-05-2022 Jones (Eskalith(R)), Serum 0.9 mmol/L Normal 0.5-1.2 [facility] Comment on above: Result Comment: A co ncentration of 0.5-0.8 mmol/L is advised for long-term use; concentrations of up to 1.2 mmol/L may be necessary during acute treatment. Detection Limit = 0.1 <0.1 indicates None Detected Performed By: #### L ITHIUM #### [facility] [address] [place] [address] Dr. Nikky King Vital Signs Date Time Vital Sign Value Performing Clinician Severinoi lity 12-02-2024 12:32-0400 Body height 167.6 cm [employer] Work Phone: [facility] [employer] 12-02-2024 12:32-040 Body mass index (BMI) [Ratio] 31.96 kg/m2 [employer] Work Phone: [facility] [employer] 12-02-2024 12:32040 Body weight 89.81 kg [employer] Work Phone: [facility] 12-02-2024 12:32-0400 Diastolic blood pressure 82 mm[Hg] Cris Lowe PA Work Phone: [facility] 12-02-2024 12:32-0400 Systolic blood pressure 128 mm[Hg] Cris Lowe PA Work Phone: [facility] 05-21-2024 09:29-0400 Body height 167.6 cm Cris Lowe PA Work Phone: [facility] 05-21-2024 09:29-0400 Body mass index (BMI) [Ratio] 31.96 kg/m2 Cris Lowe PA Work Phone: [facility] 05-21-2024 09:29-0400 Body weight 89.81 kg Cris Lowe PA Work Phone: [facility] 05-21-2024 09:29-0400 Diastolic blood pressure 90 mm[Hg] Cris Lowe PA Work Phone: [facility] 05-21-2024 09:29-0400 Systolic blood pressure 136 mm[Hg] Cris Lowe PA Work Phone: [facility] 12-28-2023 14:30-0400 Diastolic blood pressure 89 mm[Hg] Mari Traore DMD Work Phone: [facility] 12-28-2023 14:30-0400 Heart rate 69 /min Mariayanna Traore DMD Work Phone: [facility] 12-28-2023 14:30-0400 Respiratory rate 10 /min Mari Traore DMD Work Phone: [facility] 12-28-2023 14:30-0400 SaO2% (BldA) [Mass fraction] 100 % Mariayanna Vaner DMD Work Phone: [facility] 12-28-2023 14:30-0400 Systolic blood pressure 135 mm[Hg] Mari Traore DMD Work Phone: [facility] 12-28-2023 13:52-0400 Body temperature 97.3 [degF] Mari Vaner DMD Work Phone: [employer] 12-28-2023 09:15-0400 Body height 167.6 cm Mari Traore DMD Work Phone: [employer] 12-28-2023 09:15-0400 Body mass index (BMI) [Ratio] 31.8 kg/m2 Mari Traore DMD Work Phone: [employer] 12-28-2023 09:15-0400 Body weight 89.36 kg Mari Traore DMD Work Phone: [employer] 12-19-2023 11:23-0400 Diastolic blood pressure 90 mm[Hg] Ling Khaiiv ENTERPRISE SALES EXECUTIVE-SUBWAY CONDUCTOR Work Phone: [employer] 12-19-2023 11:23-0400 Systolic blood pressure 132 mm[Hg] Ling Khaiiv ENTERPRISE SALES EXECUTIVE-SUBWAY CONDUCTOR Work Phone: [employer] 12-19-2023 11:03-0400 Body height 167.6 cm Ling Khaiiv ENTERPRISE SALES EXECUTIVE-SUBWAY CONDUCTOR Work Phone: [employer] 12-19-2023 11:03-0400 Body mass index (BMI) [Ratio] 31.8 kg/m2 Ling Markiv ENTERPRISE SALES EXECUTIVE-SUBWAY CONDUCTOR Work Phone: [employer] 12-19-2023 11:03-0400 Body temperature 97.81 [degF] Ling Markiv ENTERPRISE SALES EXECUTIVE-SUBWAY CONDUCTOR Work Phone: [employer] 12-19-2023 11:03-0400 Body weight 89.36 kg Ling Markiv ENTERPRISE SALES EXECUTIVE-SUBWAY CONDUCTOR Work Phone: [employer] 12-19-2023 11:03-0400 Heart rate 59 /min Ling Markiv ENTERPRISE SALES EXECUTIVE-SUBWAY CONDUCTOR Work Phone: [employer] 12-19-2023 11:03-0400 Respiratory rate 18 /min Ling Khaiiv ENTERPRISE SALES EXECUTIVE-SUBWAY CONDUCTOR Work Phone: [employer] 12-19-2023 11:03-0400 SaO2% (BldA) [Mass fraction] 97 % Ling Ridleyclaudia ENTERPRISE SALES EXECUTIVE-SUBWAY CONDUCTOR Work Phone: [facility] 12-03-2023 13:07-0400 Body height 167.6 cm Oscar Ruiz MD Work Phone: [facility] 12-03-2023 13:07-0400 Body weight 92.53 kg Oscar Ruiz MD Work Phone: [facility] 12-03-2023 13:07-0400 Diastolic blood pressure 76 mm[Hg] Oscar Ruiz MD Work Phone: [facility] 12-03-2023 13:07-0400 Heart rate 71 /min Oscar Ruiz MD Work Phone: [facility] 12-03-2023 13:07-0400 Systolic blood pressure 111 mm[Hg] Oscar Ruiz MD Work Phone: [facility] 11-28-2023 09:48-0400 Body height 167.6 cm Victoria Daniel ENTERPRISE SALES EXECUTIVE.SUBWAY CONDUCTOR Work Phone: [facility] 11-28-2023 09:48-0400 Body temperature 97.5 [degF] Victoria Daniel ENTERPRISE SALES EXECUTIVE.SUBWAY CONDUCTOR Work Phone: [facility] 11-28-2023 09:48-0400 Body weight 87.54 kg Victoria Daniel ENTERPRISE SALES EXECUTIVE.SUBWAY CONDUCTOR Work Phone: [facility] 11-28-2023 09:48-0400 Diastolic blood pressure 66 mm[Hg] Victoria Daniel ENTERPRISE SALES EXECUTIVE.SUBWAY CONDUCTOR Work Phone: [facility] 11-28-2023 09:48-0400 Heart rate 83 /min Victoria Daniel ENTERPRISE SALES EXECUTIVE.SUBWAY CONDUCTOR Work Phone: [facility] 11-28-2023 09:48-0400 Systolic blood pressure 134 mm[Hg] Victoria Daniel ENTERPRISE SALES EXECUTIVE.SUBWAY CONDUCTOR Work Phone: [facility] 07-16-2023 08:06-0500 Body mass index (BMI) [Ratio] 33.97 kg/m2 Kim Beltre MD Work Phone: [facility] 07-16-2023 08:06-0500 Body temperature 97.5 [degF] Kim Beltre MD Work Phone: [facility] 07-16-2023 08:06-0500 Body weight 90.27 kg Kim Beltre MD Work Phone: [facility] 07-16-2023 08:06-0500 Diastolic blood pressure 80 mm[Hg] Kim Beltre MD Work Phone: [facility] 07-16-2023 08:06-0500 Heart rate 37 /min Kim Beltre MD Work Phone: [facility] 07-16-2023 08:06-0500 Respiratory rate 15 /min Kim Beltre MD Work Phone: [facility] 07-16-2023 08:06-0500 SaO2% (BldA) [Mass fraction] 100 % Kim Beltre MD Work Phone: [facility] 07-16-2023 08:06-0500 Systolic blood pressure 110 mm[Hg] [facility] Encounter Date Encounter Type Care Provider Facility Start: 02-24-2025 End: 02-24-2025 Patient encounter procedure Kendra Jaramillo DDS Work Phone: [employer] Comment on above: Encounter for dental examination (Primary Dx) Start: 02-24-2025 End: 02-24-2025 Patient encounter status Kendra Clint MATA Work Phone: [facility] Work Phone: Start: 12-16-2024 End: 12-16-2024 [...] Letter encounter Gallagherroger Corcoran DDS Work Phone: [facility] Start: 05-21-2024 End: 05-21-2024 Bamboo flowsheet Cris Lowe PA Work Phone: [facility] [address] [facility] Start: 05-21-2024 End: 05-21-2024 Bamboo flowsheet Cris Lowe PA Work Phone: [facility] [address] [facility] Start: 05-21-2024 End: 05-21-2024 Office outpatient visit 15 minutes Cris Lowe PA Work Phone: [facility] [address] Comment on above: Alteration of awaren ess (Primary Dx) Start: 05-21-2024 End: 05-21-2024 ambulatory CRIS LOWE Not Available Start: 05-18-2024 End: 05-18-2024 Letter encounter Aileen [facility]coran DDS [facility] Start: 02-13-2024 End: 02-13-2024 Lab Drop off HERMAN ROMERORING [facility] Start: 02-13-2024 End: 02-13-2024 ambulatory HERMAN CRANE Facility:[facility] Start: 01-29-2024 End: 01-29-2024 ambulatory CRIS LOWE Not Available Start: 01-11-2024 Telephone encounter Cris Dinh RN Colorectal Surgery Comment on above: Photocomposition Keyboard Operator - O ther Start: 12-28-2023 End: 12-31-2023 Patient encounter procedure Mari Kassidy DMD Work Phone: [facility] Start: 12-28-2023 End: 12-28-2023 Subsequent hospital visit by physician Mari Traore DMD Work Phone: [facility] Ambulatory Surgery Start: 12-28-2023 End: 12-31-2023 ambulatory RYAN ZURITA Facility:[facility] Start: 12-25-2023 Telephone encounter Shayy Chandler RN [facility] Pre-Admission Testing Comment on above: Pre-surgical Evaluat ion (DD adult dental restorations 12/27 under [place] at [place]. PAT completed - consent request sent to main - see future encounter for results. CHRISTINA RN spoke to [facility], confirmed O, [place] address, and 0900 arrival time/) Pre-surgical Evaluat ion (Anesthesia Attestaion for dental surgery scanned in sales assistant entertainment and media) Start: 12-20-2023 End: 12-20-2023 Orders Only Victoria Sanchez APRN.SUBWAY CONDUCTOR Work Phone: General Surgery Comment on above: Sigmoid volvulus (HC C) (Primary Dx) Start: 12-19-2023 End: 12-19-2023 Patient encounter procedure Ling Coffman ENTERPRISE SALES EXECUTIVE-SUBWAY CONDUCTOR Work Phone: [facility] Pre-Admission Testing Comment on above: Pre-op testing (Prim marylin Dx); Body mass index (BMI) 31.0-31.9, adult Start: 12-19-2023 End: 12-19-2023 Patient encounter status Ling Coffman ENTERPRISE SALES EXECUTIVE-SUBWAY CONDUCTOR Work Phone: [facility] Work Phone: Start: 12-19-2023 ambulatory RYAN ZURITA Facilit y:[facility] Start: 12-19-2023 Encounter for other preprocedural examination LING COFFMAN [facility] Start: 12-11-2023 End: 12-11-2023 ambulatory EPIFANIO HUNTLEY Not Available Start: 12-03-2023 End: 12-04-2023 ambulatory Rafael Giraldo MD Work Phone: Urology Start: 12-03-2023 End: 12-03-2023 Office outpatient visit 5 minutes Oscar Ruiz MD Work Phone: Urology Comment on above: Phimosis (Primary Dx ) Start: 11-28-2023 End: 11-29-2023 ambulatory VICTORIA SANCHEZ Facility:[facility] Start: 11-28-2023 End: 11-28-2023 Patient encounter procedure Victoria Sanchez ENTERPRISE SALES EXECUTIVE.SUBWAY CONDUCTOR Work Phone: General Surgery Comment on above: Postoperative visit (Primary Dx) Start: 11-12-2023 Telephone encounter Cris Dinh RN Colorectal Surgery Comment on above: Photocomposition Keyboard Operator - O ther Start: 11-07-2023 End: 11-07-2023 ambulatory PHOENIX CARDENAS Facility:[facility] Start: 10-28-2023 Evaluation and management of inpatient PHOENIX CARDENAS Facility:[facility] Start: 10-10-2023 Admission to [facility] Coleen Dodson DDS Other Phone: [facility] Start: 07-16-2023 End: 07-16-2023 Emergency department patient visit Kim Beltre MD Work Phone: [facility] Emergency Department Comment on above: bradycardia (Low HR (33)) Start: 07-16-2023 End: 07-16-2023 Subsequent hospital visit by physician Harpreet Mccurdy DDS Work Phone: [facility] Radiology CT Scan Comment on above: Arrived Start: 07-04-2023 End: 07-04-2023 ambulatory HERMAN CRANE Facility:[facility] Start: 07-04-2023 End: 07-04-2023 Lab Drop off HERMAN CRANE [facility] Start: 06-26-2023 Telephone encounter Shanna marquez RN [facility] Pre Surgical Evaluation Comment on above: Pre-surgical Evaluat ion (Informed Consent for dental surgery & Anesthesia consent obtained) Start: 06-22-2023 End: 06-22-2023 Subsequent hospital visit by physician Op Xray 2 [facility] Radiology Comment on above: Pre-op exam Start: 06-22-2023 End: 06-22-2023 Patient encounter procedure Pse Anesthesia [facility] Pre Surgical Evaluation Comment on above: Pre-op evaluation (P rimary Dx) Start: 06-22-2023 End: 06-22-2023 Preprocedural examination done Pse Anesthesia [facility] Work Phone: Start: 05-25-2023 Admission to [facility] Hiram Rodriguez DDS Work Phone: [facility] Start: 01-17-[address] HERMAN CRANE Fac [...] other specified special examinations DR HERMAN CRANE [facility] Start: 08-22-2022 End: 08-23-[address] [...] Start: 03-29-2022 Telephone encounter To Be Assigned [facility] Physician Referral Service Comment on above: Medical Record Revie w Procedures Date Procedure Procedure Detail Performing Clinician Start: 02-24-2025 LIMITED ORAL EVALUAT ION - PROBLEM FOCUSED Kendra Jaramillo DDS Work Phone: Start: 02-24-2025 PANORAMIC RADIOGRAPH IC IMAGE Kendra Jaramillo DDS Work Phone: Start: 12-19-2023 Basic metabolic pane l calcium total Ling Markiv ENTERPRISE SALES EXECUTIVE-SUBWAY CONDUCTOR Work Phone: Start: 10-28-2023 Antibody screen PHOENIX CARDENAS Comment on above: Order Comment: Speci men Type: BLOOD SPECIMEN Ordering Facility: [facility] Address: [address] [place] [address] Performed By: #### 2 [id number], [id number], 2777-1 #### [facility] CLIA [id number] [address] [place] [address] [place] [address] [place] Start: 07-16-2023 End: [...] 2) [facility] Start: 07-10-2029 Tetanus vaccination [facility] Start: 07-10-2029 Urine microalbumin profile DTaP,Tdap,Td Vaccine (2 - Td or Tdap) [facility] Start: 04-20-2025 Influenza vaccination INFLUENZA VACC INE (#1) [facility] Start: 12-02-2024 End: 12-02-2024 [facility] Comment on above: Arrived Start: 05-21-2024 End: 05-21-2024 Patient encounter procedure 05/21/2024 9:40 AM EDT [facility] [address] [place] [address] Cris Walters PA [address] [place] [address] [facility] Comment on above: Arrived Start: 04-20-2024 COVID-19 VACCINE ( season) COVID-19 VACCINE ( season) [facility] Start: 04-20-2024 COVID-19 Vaccine ( season) COVID-19 Vaccine ( season) [facility] Start: 04-20-2024 COVID-19 Vaccine ( season) COVID-19 Vaccine ( season) [facility] Start: 04-20-2024 Influenza vaccination Influenza Vacc ine (#1) [facility] Start: 03-11-2024 End: 03-11-2024 Patient encounter procedure 03/11/2024 9:00 AM EDT Office Visit [facility] [address] [place], [place] [phone] Iain Lazcano MD [address] [place] [address] Cataracts Ophthalmology Comment on above: Cataracts Start: 12-28-2023 End: 12-28-2023 Admission to same day surgery center 12/28/2023 10:01 AM EDT - 12/28/2023 12:21 PM EDT Surgery [facility] Ambulatory Surgery [address] [place] [id number] Mari Traore, DMD [address] [place], [place] [phone] DENTAL RESTORATIONS [facility] Ambulatory Surgery Comment on above: DENTAL RESTORATIONS Start: 12-28-2023 End: 12-28-2023 DENTAL RESTORATIONS [facility] Start: 12-28-2023 Subsequent hospital visit by physician 12/28/2023 10:01 AM EDT Hospital Encounter [facility] Ambulatory Surgery [address] [place] [address] Mari Traore, DMD [address] [place], [place] [phone] [facility] Ambulatory Surgery Start: 12-28-2023 End: 12-28-2023 Patient encounter procedure 12/28/2023 9:00 AM EDT Procedure Visit [facility] [address] [place] [address] Mari Traore, DMD [address] [place], [place] [phone] [facility] Start: 08-20-2023 Behavioral Health Screening Behavioral Health Screening [facility] Start: 08-20-2023 Depression Assessment Depression Ass essment [facility] Start: 07-16-2023 End: 07-16-2023 DENTAL RESTORATIONS DENTAL RESTORATIONS Routine scheduled Caries 07/16/2023 1:45 PM EST [facility] Start: 07-16-2023 End: 07-16-2023 Admission to same day surgery center 07/16/2023 9:27 AM EST - 07/16/2023 11:24 AM EST Surgery [facility] Ambulatory Surgery [address] [place] [address] Harpreet Mccurdy, DDS [address] [place], [place] [id number] DENTAL RESTORATIONS [facility] Ambulatory Surgery Comment on above: DENTAL RESTORATIONS Start: 07-16-2023 End: 07-16-2023 DENTAL RESTORATIONS DENTAL RESTORATIONS Routine scheduled Caries 07/16/2023 9:27 AM EST [facility] Start: 07-16-2023 Subsequent hospital visit by physician [facility] Ambulatory Surgery Start: 06-22-2023 End: 06-22-2023 Patient encounter procedure 06/22/2023 2:30 PM EDT Office Visit [facility] Pediatric Comprehensive [facility] [address] [place] [address] Franc Beyer MD [facility] [place] [phone] [facility] Comprehensive Care Start: 04-20-2023 COVID-19 Vaccine () COVID-19 Vaccine ( season) [facility] Start: 04-20-2023 Influenza vaccination Influenza Vacc ine (#1) [facility] Start: 05-20-2022 Influenza vaccination Influenza Vacc ine (#1) [facility] Start: 04-20-2022 Influenza vaccination INFLUENZA (#1) [facility] Start: 08-20-2021 DEPRESSION ASSESSMENT DEPRESSION ASS ESSMENT [facility] Start: 08-10-2021 COVID-19 VACCINE (4 - Booster for Pfizer series) COVID-19 VACCINE (4 - Booster for Pfizer series) [facility] Start: 2019 HPV Vaccine (optiona l start 27-45 years) HPV Vaccine (optional start 27-45 years) [facility] Start: 02-17-2014 Annual wellness visit Annual W ellness Visit ([id number]) [facility] Start: 2011 Hepatitis A (HAV) Vaccine (optional start 19+ years) Hepatitis A (HAV) Vaccine (optional start 19+ years) [facility] Start: 2011 Hepatitis B vaccination [facility] Start: 2011 Hepatitis B Vaccine (1 of 3 - 19+ 3-dose series) Hepatitis B Vaccine (1 of 3 - 19+ 3-dose series) [facility] Start: 2011 Urine microalbumin profile DTAP,TDAP,TD (1 - Tdap) [facility] Start: 2010 Annual PCP Team [facility] Teacher jenni Disease Visit Annual PCP Team Chronic Disease Visit [facility] Start: 2010 Hepatitis C screening M [facility] Start: 2010 HEPATITIS C SCREENING HEPATITIS C SC REENING [facility] Start: 2010 HIV SCREENING HIV SCREENING [facility] Start: 2010 HIV screening HIV Screening [facility] Start: 2007 HIV screening [facility] Start: 2004 Adult depression screening assessment DEPRESSION SCREENING [facility] Start: 1992 HEPATITIS B (1 of 3 - 3-dose series) HEPATITIS B (1 of 3 - 3-dose series) [facility] Start: 1992 Hepatitis B vaccination Hepati tis B (HBV) Vaccine (1 of 3 - 3-dose series) [facility] Start: 1992 Hepatitis C screening HEPATITI S C VIRUS SCREENING [facility] Start: 1992 Thyroid stimulating hormone [facility] COMPREHENSIVE ORAL E GORDON - NEW/EST PATIENT COMPREHENSIVE ORAL EVAL - NEW/EST PATIENT Dental Routine 1 Occurrences starting 02/24/2025 [facility] Work Phone: Comment on above: 1 Occurrences starti ng 02/24/2025 DENTAL RESTORATIONS DENTAL OMAR RATIONS Routine scheduled [facility] INTRAORAL - COMPLETE SERIES OF RADIOGRAPHIC IMAGES INTRAORAL - COMPLETE SERIES OF RADIOGRAPHIC IMAGES Dental Routine 1 Occurrences starting 02/24/2025 [facility] Work Phone: Comment on above: 1 Occurrences starti ng 02/24/2025 PROPHYLAXIS - ADULT PROPHYLAXIS - ADULT Dental Routine 1 Occurrences starting 02/24/2025 [facility] Work Phone: Comment on above: 1 Occurrences starti ng 02/24/2025 URINALYSIS, REFLEX MICROSCOPIC URINALYSIS, REFLEX MICROSCOPIC Lab Routine Screening for genitourinary condition Ordered: 12/03/2023 [facility] Work Phone: Comment on above: Ordered: 12/03/2023 [facility] Immunizations Immunization Date Immunization Notes Care Provider Jason lowe 06-05-2024 influenza virus vaccine, unspecified formulation Kendra Jaramillo DDS Work Phone: [facility] Work Phone: 06-15-2021 influenza, injectabl e, quadrivalent, preservative free To Assigned [facility] 06-15-2021 influenza virus vaccine, unspecified formulation To Assigned [facility] 05-26-2020 influenza, injectabl e, quadrivalent, preservative free To Assigned [facility] 07-10-2019 tetanus toxoid, reduced diphtheria toxoid, and acellular pertussis vaccine, adsorbed To Assigned [facility] 06-13-2019 influenza, injectabl e, quadrivalent, preservative free To Assigned [facility] 05-29-2018 influenza, injectabl e, quadrivalent, preservative free To Assigned [facility] 06-13-2017 influenza, injectabl e, quadrivalent, contains preservative To Assigned [facility] 06-10-2015 influenza, injectabl e, quadrivalent, preservative free To Assigned [facility] 06-12-2012 influenza, seasonal, injectable To Assigned [facility] 05-03-2011 influenza, seasonal, injectable, preservative free To Assigned [facility] 06-15-2010 influenza, seasonal, injectable To Assigned [facility] 07-07-2009 novel [id number], preservative-free, injectable To Assigned [facility] 05-11-2009 influenza, seasonal, injectable To Assigned [facility] 06-15-2008 influenza, seasonal, injectable To Assigned [facility] 06-11-2008 influenza virus vaccine, whole virus To Assigned [facility] Payers Date Payer Category Payer Specific state progr special care hospital (list/ local code) [place] FUNDED 0000 [id number] 07-08-2020 Unknown [id number] 07-20-2017 Dental --Stand Alone DENTAL-MEDI CAID [id number] 07-20-2017 Medicaid [id number] 02-17-2013 Medicare [id number] [id number] .[id number] 02-17-2013 Medicare FFS MEDICARE [id number] 1992 Unknown [id number] 2.840.1.586187.3.579.2. 727 1992 Unknown [id number] 2.16840.1.897067.3.579.2. 727 1992 Unknown [id number] 2.840.1.365841.3.579.2. 9 1992 Unknown [id number] 2.16840.1.057718.3.579.2. 1259 1992 Unknown [id number] 2.16840.1.186625.3.579.2. 1259 1992 Unknown [id number] 2.16.840.1.340359.3.579.2. 1259 1992 Unknown [id number] 2.16.840.1.737927.3.579.2. 1259 1992 Unknown [id number] 2.16.840.1.345629.3.579.2. 732 1992 Unknown [id number] 2.16.840.1.951082.3.579.2. 732 1992 Unknown [id number] 2.16.840.1.996204.3.579.2. 732 1992 Unknown [id number] 2.16.840.1.759026.3.579.2. 732 08-20-1957 Medicaid [id number] 08-20-1957 Medicare [id number] Unknown [id number] 2.16.840.1.575870.3.579.2. 593 Unknown [id number] 2.16.840.1.011414.3.579.2. 593 Unknown [id number] 2.16.840.1.002333.3.579.2. 593 Unknown [id number] 2.16.840.1.154517.3.579.2. 593 Unknown [id number] 2.16.840.1.210835.3.579.2. 593 Unknown [id number] 2.16.840.1.994610.3.579.2. 593 Unknown [id number] 2.16.840.1.162381.3.579.2. 593 Unknown [id number] 2.16.840.1.874198.3.579.2. 593 Specific state progr ams (list/ local code) TB FUNDED Member Subscriber Plan / Payer (Effective for All Dates) Name: Johnny Devine Member ID: Not on file Relation to Subscriber: Self Name: Johnny Devine Subscriber ID: Not on file Payer ID: Not on file Group ID: Not on file Type: Other Address: [place] [id number] Social History Date Type Detail Facility Start: 07-08-2019 End: 02-24-2025 Tobacco smoking status NHIS Never smoked tobacco [facility] Start: 07-08-2019 End: 02-24-2025 Tobacco use and exposure Smokeless tobacco non-user [facility] Start: 02-04-2021 End: 02-24-2025 Alcohol intake Lifetime non-drinker (finding) [facility] Start: 07-13-2020 History SDOH Alcohol Frequency 1 [facility] Start: 1990 Sex Assigned At Not on file M [facility] Start: 05-04-2022 End: 12-19-2023 Tobacco smoking status [facility] Tobacco smoking consumption unknown [facility] Start: 04-24-2022 End: 05-04-2022 Exposure to SARS-CoV-2 (event) Not sure [facility] Start: 10-29-2023 End: 02-24-2025 Gender identity Not on file [facility] Tobacco smoking status No Smokin g Status Entered [facility] Start: 10-29-2023 End: 02-24-2025 History of Social function [facility] Work Phone: Has the [employer], or [employer] threatened to shut off services in your home in past 12Mo Patient unable to answer [facility] Work Phone: How often to you hav e a drink containing alcohol? Never [facility] Work Phone: Start: 07-20-2017 End: 01-26-2025 Sex Male (finding) [facility] Clinical Notes 03-29-2022 to 02-24-2025 Kendra Jaramillo DDS - 02/24/2025 10:00 AM EDTPatient InstructionsDental Procedure Details - Kendra Jaramillo DDS - 02/24/2025 10:00 AM BETI Antonio - 12/02/2024 12:40 PM EDTDischaricardo Instructions Note Date & Type Note Facility 02-24-2025 History of Present illness Narrative Dental Exam 02/24/2025 Publisher Assistant Needed: No. Chief Complaint Patient presents with [...] capsule Take 1 capsule by mouth daily. Jones 300 MG capsule TAKE ONE CAPSULE BY [...] an appropriate candidate for sedation within the [facility] clinic setting. As such, we have [...] Kendra Jaramillo DDS documented in this encounter [facility] [employer] Work Phone: 02-24-2025 Instructions [...] daily ADDITIONAL RECOMMENDATIONS: documented in this encounter [facility] Work Phone: 02-24-2025 Miscellaneous Notes Was local anesthetic administered? No Refer to assessment note above documented in this encounter [facility] Work Phone: 02-24-2025 caterers helper procedure note Was local anesthetic administered? No Refer to assessment note above [facility] Work Phone: 12-16-2024 Note Outreach Team ) [...] date (10 year lookback): Not Found [facility] 12-16-2024 Telephone encounter Note Outreach Team ([phone]) Contact Details: I did not contact. Pt [...] Smear date (10 year lookback): Not Found [facility] 12-16-2024 Miscellaneous Notes Outreach Team ([phone]) Contact Details: I did not contact. Pt [...] lookback): Not Found documented in this encounter [facility] 12-02-2024 History of Present illness Narrative [...] CT scan of the brain 11/03/23 at [facility] that revealed volume loss, especially in [...] or worsening symptoms. documented in this encounter [facility] 05-21-2024 History of Present illness Narrative Subjective [...] CT scan of the brain 11/03/23 at [facility] that revealed volume loss, especially in [...] in 6 months documented in this encounter [facility] 02-13-2024 Evaluation + Plan note Diagnostic Tests PendingKeppra Lvl 02/13/24Lamotrigine Level 02/13/24 [facility] 01-11-2024 Telephone encounter Note Jessica from [facility] [phone] is caller. She states was originally told [...] needs at present time. Cris Dinh, RN [facility] 01-11-2024 Miscellaneous Notes Jessica from [facility] [phone] is caller. She states was originally told [...] Cris Dinh, RN documented in this encounter [facility] 12-28-2023 Hospital Discharge instructions Benjamín Guo - 12/28/2023 2:17 PM EDT PERIOPERATIVE DISCHARGE/HOME-GOING INSTRUCTIONS ANESTHESIA - GENERAL (ADULT) If a problem arises, you may contact your physician by calling [phone] and asking for the resident rayon tester for Dental service. Special Care Needs: Activity: [...] sent through Care Everywhere.Tooth Extraction Discharge Instructions (Kyrgyz)documented in this encounter [facility] 12-28-2023 History and physical note Surgical [...] possible Mari Traore DMD 12/28/2023 10:09 [facility] 12-28-2023 Note Surgical Attestation : [...] Mari Traore DMD 12/28/2023 10:09 AM [facility]-28[facility] History and physical note Surgical [...] 12/28/2023 10:09 AM documented in this encounter [facility] 12-28-2023 Miscellaneous Notes Brief Operative Note PHE OR 3 Johnny Devine 33 year old male Surgical Contact Serial Number: [id number] Preoperative Diagnosis: Pre-op Diagnosis * Caries [K02.9] Moderate intellectual disability [F79] Postoperative Diagnosis: Moderate intellectual disability [F79] Procedures: Comprehensive exam [15934] Full mouth X-ray [ 29230] Extractions [28497] Restorations [20012] Prophy 54306] Fluoride treatment [68687] Surgeon(s): Surgeon(s): Mari Traore DMD Staff: Fry Cook Nurse: Henrietta Johnson Anesthesia: General Anesthesia Staff: Masters, Selena R., ENTERPRISE SALES EXECUTIVE-BACK FILLER OPERATOR Specimen(s): * No specimens in log * [...] disability[F79] @ENCORD@ Surgeon: Dr. Mari Traore DMD Associate Professor Of Church Music Surgeon: Reema Whiting DDS Anesthesia: General- Nasal [...] 4 mg/0.1 mL nasal liquid Use 1 Reynolds in one nostril (alternate sides) as needed [...] were discussed with the patient and/or legal product support representative. The risks, benefits and alternatives were reviewed. Questions regarding blood transfusions were answered. The patient /or the patient s legal product support representative agree with the plan for transfusion of blood and/or blood components. documented in this encounter [facility] 12-28-2023 Surgery Postoperative evaluation and management note Brief Operative Note PHE OR 3 Johnny Devine 33 year old male Surgical Contact Serial Number: [id number] Preoperative Diagnosis: Pre-op Diagnosis * Caries [K02.9] Moderate intellectual disability [F79] Postoperative Diagnosis: Moderate intellectual disability [F79] Procedures: Comprehensive exam [63628] Full mouth X-ray [ 02672] Extractions [67201] Restorations [47127] Prophy 50811] Fluoride treatment [90339] Surgeon(s): Surgeon(s): Mari Traore DMD Staff: Fry Cook Nurse: Henrietta Johnson Anesthesia: General Anesthesia Staff: [...] by Reema Whiting DDS 12/28/2023 1;48 pm [facility] 12-28-2023 Surgery Surgical operation note Surgical Case Number Data Unavailable Operating Room Data Unavailable Preoperative Diagnosis(es): Pre-op Diagnosis * Caries [K02.9] Moderate intellectual disability [F79] Postoperative Diagnosis(es): Moderate intellectual disability[F79] @ENCORD@ Surgeon: Dr. Mari Traore DMD Associate Professor Of Church Music Surgeon: Reema Whiting DDS Anesthesia: General- Nasal [...] 4 mg/0.1 mL nasal liquid Use 1 Reynolds in one nostril (alternate sides) as needed [...] procedure. Reema Whiting DDS 12/28/2023 1:53 pm [facility] 12-28-2023 Progress note Formatting of t his note is different from the original. Blood Attestation: ATTESTATION OF INFORMED CONSENT FOR BLOOD: The transfusion of blood and/or blood components were discussed with the patient and/or legal product support representative. The risks, benefits and alternatives were reviewed. Questions regarding blood transfusions were answered. The patient /or the patient s legal product support representative agree with the plan for transfusion of blood and/or blood components. [facility] 12-28-2023 History of Present illness Narrative Patient takes his seizure medication with pudding, facility held them today for dental surgery. Caregiver brought capsules with them to pre-op. Per Dr. Saldivar, divalproex 125 mg x 4 capsules (500 mg) were opened and sprinkles given to patient with 50 mL of water in pre-op. 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 MB cusp tip was visualized upon extraction of #17, but well encased in bone and would not be exposed to the oral cavity following healing of the extraction site. Preoperative Diagnosis(es): Pre-op Diagnosis * Caries [K02.9] Moderate intellectual disability [F79] Postoperative Diagnosis(es): Moderate intellectual disability[F79] Surgeon: Dr. Mari Traore DMD Associate Professor Of Church Music Surgeon: Reema Whiting DDS Anesthesia: General- Nasal [...] of surgery: Stable documented in this encounter [facility] 12-21-2023 Evaluation note Addendum 12/21/2023- Caregiver @ [facility] called to relay that patient unable to [...] Kiko VASQUEZ RN updated nursing staff @ [facility]. [facility] 12-21-2023 Miscellaneous Notes Addendum 12/21/2023- Caregiver @ [facility] facility called to relay that patient unable [...] Kiko VASQUEZ RN updated nursing staff @ [facility]. Patient was identified by name and date of . Jaswinderlary Arredondo Patient at risk for falls:No Falls Risk protocol implemented: N/A documented in this encounter [facility] 12-19-2023 Instructions Ling Coffman APRN-SUBWAY CONDUCTOR - 12/19/2023 11:26 AM EDT On the [...] for pain. Please hold all Vitamin E, [place] 3, fish oil and herbal supplements for 1 week prior to surgery. Please use this LIST to prepare for your surgery/procedure: ? Assume that any lab or testing done during your Pre-admission testing appointment is within normal limits unless otherwise contacted. ? Expect a call from [facility] one business day prior to surgery for [...] your Preparing for Your Surgery/Procedure booklet or [email or web address] if you have questions. Contact the Pre-Admission Testing department at [phone] or your surgeon's office with any questions [...] stay with you after surgery. Please call [facility] [employer] if you need transportation assistance or have concerns about going home [phone]. ? SLEEP APNEA PATIENTS: Bring your sleep apnea machine and mask. ? PLEASE BE ON TIME. A late arrival may result in the cancellation/ delay of your surgery. [facility]; it is our pleasure to care for you documented in this encounter [facility] 12-19-2023 Instructions Shanna Sauceda RN - 12/19/2023 11:26 AM EDT [facility] staff: Since patient is unable to take [...] for pain. Please hold all Vitamin E, [place] 3, fish oil and herbal supplements for 1 week prior to surgery. Please use this LIST to prepare for your surgery/procedure: ? Assume that any lab or testing done during your Pre-admission testing appointment is within normal limits unless otherwise contacted. ? Expect a call from [facility] one business day prior to surgery for [...] your Preparing for Your Surgery/Procedure booklet or [email or web address] if you have questions. Contact the Pre-Admission Testing department at [phone] or your surgeon's office with any questions [...] stay with you after surgery. Please call [employer] if you need transportation assistance or have concerns about going home [phone]. ? SLEEP APNEA PATIENTS: Bring your sleep apnea machine and mask. ? PLEASE BE ON TIME. A late arrival may result in the cancellation/ delay of your surgery. Thank you for choosing [facility]; it is our pleasure to care for you documented in this encounter [facility] 12-19-2023 Evaluation note Patient was identified by name and date of . Jaswinder Arredondo Patient at risk for falls:No Falls Risk protocol implemented: N/A [facility] 12-19-2023 Miscellaneous Notes Patient was identified by name and date of . Jaswinder Arredondo Patient at risk for falls:No Falls Risk protocol implemented: N/A documented in this encounter [facility] 12-19-2023 History of Present illness Narrative Images from the original note were not included. Pre-Admission Testing Consultation Johnny Devine, [id number] 33 year old Male 12/19/2023 Consult placed to [facility] by Mari Traore, due to significant PMH of Hypothyroidism , Bipolar, Autistic disorder ,Epilepsy [facility] Triage Risk Score Total Score: 3 1 [...] intervention warranted . Patient with Lamaar from [facility] during this appointment Patient is here for pre-admission optimization and education prior to surgery. RECENT ILLNESS: Serious illness or hospitalization within the last six months. Yes 10/28/2023 HOSPITAL COURSE: Johnny Devine is a 33 year old male with developmental delay and no PSH who presents as a transfer to [facility] from [facility] ED for further management of small bowel obstruction. Given patient's baseline cognitive status, NGT difficult to maintain. He was admitted to the [facility] under care of general surgery and was taken to the OR the following morning for diagnostic laparoscopy. Intra-operative findings demonstrated no adhesins, no apparent hernias, dilated small/large bowel, redundant sigmoid c/f volvulus, easily reduced. After recovering in the PACU, he was taken to the [facility] with NGT in place. Patient arrived to [facility] with 8 Fr pediatric haskins [...] DENTAL RESTORATIONS; Surgeon: Harpreet Mccurdy DDS; Location: [facility]; Service: Dental Past Medical [...] DATA: CBC @ [facility] 11/07/2023 CBC Order: [id number] Component Ref Range & Units 1 mo [...] 0418 [id number] 91 Comment: The [place] Diabetes Association (ADA) provides guidance for cutoff [...] Standards of Medical Care in Diabetes 2016, [place] Diabetes Association. Diabetes Care. 2016.39(Suppl 1). 8 0.70 8.2 11/06/23 0943 146 112 18 83 Comment: The [place] Diabetes Association (ADA) provides guidance for cutoff [...] Standards of Medical Care in Diabetes 2016, [place] Diabetes Association. Diabetes Care. 2016.39(Suppl 1). 6 0.69 8.9 11/05/23 0418 142 112 23 96 Comment: The [place] Diabetes Association (ADA) provides guidance for cutoff [...] Standards of Medical Care in Diabetes 2016, [place] Diabetes Association. Diabetes Care. 2016.39(Suppl 1). 5 0.64 7.6 11/04/23 0826 145 112 24 79 Comment: The [place] Diabetes Association (ADA) provides guidance for cutoff [...] Standards of Medical Care in Diabetes 2016, [place] Diabetes Association. Diabetes Care. 2016.39(Suppl 1). 4 [...] 1:39 PM 12/19/2023 documented in this encounter [facility] 12-19-2023 History of Present illness Narrative Images from the original note were not included. Pre-Admission Testing Consultation Johnny Devine, [id number] 33 year old Male 12/19/2023 Consult placed to [facility] by Mari Traore, due to significant PMH of Hypothyroidism , Bipolar, Autistic disorder ,Epilepsy [facility] Triage Risk Score Total Score: 3 1 [...] intervention warranted . Patient with Lamaar from [facility] facility during this appointment Patient is here for pre-admission optimization and education prior to surgery. RECENT ILLNESS: Serious illness or hospitalization within the last six months. Yes 10/28/2023 HOSPITAL COURSE: Johnny Devine is a 33 year old male with developmental delay and no PSH who presents as a transfer to [facility] from [facility] ED for further management of small bowel obstruction. Given patient's baseline cognitive status, NGT difficult to maintain. He was admitted to the [facility] under care of general surgery and was taken to the OR the following morning for diagnostic laparoscopy. Intra-operative findings demonstrated no adhesins, no apparent hernias, dilated small/large bowel, redundant sigmoid c/f volvulus, easily reduced. After recovering in the PACU, he was taken to the [facility] with NGT in place. Patient arrived to [facility] with 8 Fr pediatric haskins [...] DENTAL RESTORATIONS; Surgeon: Harpreet Mccurdy DDS; Location: [facility]; Service: Dental Past Medical [...] DATA: CBC @ [facility] 11/07/2023 CBC Order: [id number] Component Ref Range & Units 1 mo [...] 0418 [id number] 21 91 Comment: The [place] Diabetes Association (ADA) provides guidance for cutoff [...] Standards of Medical Care in Diabetes 2016, [place] Diabetes Association. Diabetes Care. 2016.39(Suppl 1). 8 0.70 8.2 11/06/23 0943 146 112 18 83 Comment: The [place] Diabetes Association (ADA) provides guidance for cutoff [...] Standards of Medical Care in Diabetes 2016, [place] Diabetes [employer]. Diabetes Care. 2016.39(Suppl 1). 6 0.69 8.9 11/05/23 0418 142 112 23 96 Comment: The [place] Diabetes Association (ADA) provides guidance for cutoff [...] Standards of Medical Care in Diabetes 2016, [place] Diabetes [employer]. Diabetes Care. 2016.39(Suppl 1). 5 0.64 7.6 11/04/23 0826 145 112 24 79 Comment: The [place] Diabetes Association (ADA) provides guidance for cutoff [...] Standards of Medical Care in Diabetes 2016, [place] Diabetes Association. Diabetes Care. 2016.39(Suppl 1). 4 [...] 1:39 PM 12/19/2023 documented in this encounter [facility] 12-19-2023 Note Pre-Admission Testin g Consultation Johnny Devine, [id number] 33 year old Male 12/19/2023 Consult placed [...] intervention warranted . Patient with Lamaar from [facility] facility during this appointment Patient is here for pre-admission optimization and education prior to surgery. RECENT ILLNESS: Serious illness or hospitalization within the last six months. Yes 10/28/2023 HOSPITAL COURSE: Johnny Devine is a 33 year old male with developmental delay and no PSH who presents as a transfer to [facility] from [facility] ED for further management of small bowel obstruction. Given patient's baseline cognitive status, NGT difficult to maintain. He was admitted to the [facility] under care of general surgery and was taken to the OR the following morning for diagnostic laparoscopy. Intra-operative findings demonstrated no adhesins, no apparent hernias, dilated small/large bowel, redundant sigmoid c/f volvulus, easily reduced. After recovering in the PACU, he was taken to the [facility] with NGT in place. Patient arrived to [facility] with 8 Fr pediatric haskins [...] SERVICES; Ser (more content not included)... [facility] 12-03-2023 Note HNO ID: [id number] Author: OSCAR RUIZ MD Service: ? Author [...] from ongoing urologic care. Oscar Ruiz MD [facility] 12-03-2023 Note Patient Outreach (UR OLMN) JOHNNY DEVINE ([id number]) 1990 M Date Time Provider Department 12/03/23 RAFAEL GIRALDO During your visit today, we recorded the following information about you: Allergies As of Date: 12/03/2023 Noted Allergy Reaction BIAXIN (CLARITHROMYCIN) 05/04/2022 14 - Other: See Comments Comments: caregiver does not know Date Reviewed: 12/03/2023 Reviewed by: Sukhdeep Barton OCCA - Fully Assessed Visit Diagnosis:Screening for genitourinary condition [Z13.89] Order(s):URINALYSIS, REFLEX MICROSCOPIC [CBT4980] Order #: [id number] Prescriptions as of 12/06/2023 - cloNIDine HCl [...] 12/03/2023 Noted Resolved SBO (small bowel obstruction) ([facility]) [K56.609] 10/28/2023 10/31/2023 Bipolar disorder (HCC) [F31.9] 09/16/2018 Hypothyroidism [E03.9] 09/16/2018 Obsessive-compulsive disorder [F42.9] 09/16/2018 Moderate intellectual disability [F71] 09/16/2018 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 Author Type: Nurse Practitioner Type: Progress Notes Filed: 11/28/2023 10:19 Note Text: [facility] Clinic Date: November 28, 2023 Johnny Devine 33 year old male CHIEF COMPLAINT: Patient presents for follow up from surgery. HPI: Here for follow up after diagnostic laparotomy on 10/29/[address] Robin. Patient also underwent a dorsal slit procedure with urology on 10/30/2023 for paraphimosis. Patient with a pet caretaker today to discuss his postoperative course since [...] for further surgery discussion Victoria Sanchez, MSN, ENTERPRISE SALES EXECUTIVE-SUBWAY CONDUCTOR November 28, 2023 [facility] 11-28-2023 History of Present illness Narrative [facility] Clinic Date: November 28, 2023 Johnny Devine 33 year old male CHIEF COMPLAINT: Patient presents for follow up from surgery. HPI: Here for follow up after diagnostic laparotomy on 10/29/[address] Robin. Patient also underwent a dorsal slit procedure with urology on 10/30/2023 for paraphimosis. Patient with a pet caretaker today to discuss his postoperative course since [...] for further surgery discussion Victoria Sanchez, MSN, ENTERPRISE SALES EXECUTIVE-SUBWAY CONDUCTOR November 28, 2023 documented in this encounter [facility] 11-28-2023 Nurse Note What is the reason for your visit today? Post op Who is your referring physician? Dr. Sanchez Are you having poor oral intake? NO Have you had unintentional weight loss of 15 lbs/7 Kg in the last 3-6 months? NO Bowels: regular Wound: clean & dry Temperature: No Drains: No documented in this encounter [facility] 11-12-2023 Miscellaneous Notes Called care facility and [...] Cris Dinh, MIRIAM documented in this encounter [facility] 11-07-2023 Note HNO ID: [id number] Author: HERMAN SALOMON, RN Service: Care Management Author Type: Registered Nurse Type: Care Mgt Progress Note Filed: 11/07/2023 14:56 Note Text: CARE MANAGEMENT DISCHARGE NOTE SERVICE DATE: November 07, 2023 SERVICE TIME: 2:56 PM Admission Date: 10/28/2023 LOS: 10 days Discharge Arrangement Discharge Arrangement: [facility] Services Arranged Medical Services: Other: See Comment (no services indicated) Caregiver Assessment Caregiver is ready, willing and able to meet the patient's needs as recommended by the inter-professional team: Yes Name of Caregiver: Kristofer Pillai Transportation Arrangements Transportation Arrangements: Car Destination: [facility] Additional Information: Patient d/c ready to [facility] with no skilled needs identified. Patient and bedside RN aware of plan. long term to transport patient home via private auto. SIGNATURE: Herman Salomon RN PATIENT NAME: Johnny Devine DATE: November 07, 2023 TIME: 2:55 PM CONTACT #: [phone] [facility] 11-07-2023 Note HNO ID: [id number] Author: GIA MULELR MD Service: General Surgery Author Type: Physician [...] * DORSAL SLIT FORESKIN EXCEPT - General [facility] 11-07-2023 Note HNO ID: [id number] Author: MAYANK READ, RN Service: Nursing Author Type: Registered Nurse Type: Nursing Progress Note Filed: 11/07/2023 09:25 Note Text: Paged primary team of low BP. [facility] 11-06-2023 Note HNO ID: [id number] Author: ALEXANDRA CHAIREZ MD Service: General Surgery [...] Chairez MD General Surgery Resident Екатерина(Jacob No): [phone] Grundfest(Boy Alcaraz Petro): [phone] After 6PM + Weekends: [phone] INTERVAL EVENTS / PERTINENT REVIEW OF SYSTEMS: [...] * DORSAL SLIT FORESKIN EXCEPT - General [facility] 11-06-2023 Note HNO ID: [id number] Author: BERNARDA SUE MD Service: Neurology General [...] DATE: November 06, 2023 TIME: 12:26 AM [facility] 11-05-2023 Note HNO ID: [id number] Author: LEEANN TELLES MD Service: General Surgery [...] as appropriate, non-distended Leeann Telles MD PGY1 [facility] 11-05-2023 Note HNO ID: [id number] Author: JUAQUIN KRISHNAMURTHY RN Service: Nursing Author [...] to bedside, Valium ordered at this time. [facility] 11-05-2023 Note HNO ID: [id number] Author: HERMAN SALOMON RN Service: Care Management Author Type: Registered Nurse Type: Care Mgt Progress Note Filed: 11/05/2023 11:21 Note Text: CARE MANAGEMENT PROGRESS NOTE SERVICE DATE: 11/05/2023 SERVICE TIME: 11:20 AM LOS: 8 days [place] of Choice Explained: [place] of Choice Given: No Reason Not Given: No placements necessary Anticipated # of Days Until Discharge: 4 Needs Prior to Discharge: Needs Prior to Discharge: To Be Determined Post-Acute Discharge Plan: Patient from [facility]. Plan is to return at discharge. supervisor picking crew is Magi [phone]. Per Magi, she will provide transport at discharge. Magi is requesting an abdominal binder at discharge due to patient's history of self-injurious behavior. 33 year old male POD #7 diagnostic laparoscopy. Patient is non-verbal, developmental delay and lives in custodial. No skilled needs anticipated. SIGNATURE: Herman Salomon RN PATIENT NAME: Johnny Devine DATE: November 05, 2023 TIME: 11:19 AM PAGER/CONTACT #: [phone] [facility] 11-05-2023 Note HNO ID: [id number] Author: CONNIE CAICEDO MD Service: Neurology General [...] Dr. Almanzar. Connie Caicedo MD 5:49 PM [facility] 11-05-2023 Note HNO ID: [id number] Author: ALEXANDRA CHAIREZ MD Service: General Surgery [...] Chairez MD General Surgery Resident Екатерина(Jacob No): [phone] Grundfest(Kieran, Boy, Misti): [phone] After 6PM + Weekends: [phone] INTERVAL EVENTS / PERTINENT REVIEW OF SYSTEMS: [...] * DORSAL SLIT FORESKIN EXCEPT - General [facility] 11-04-2023 Note HNO ID: [id number] Author: ALEXANDRA CHAIREZ MD Service: General Surgery [...] continue lorazepam TID per neurology(clarified with [facility] and patient has been getting scheduled [...] Chairez MD General Surgery Resident Екатерина(Jacob No): [phone] Grundfest(Kieran BoyMisti): [phone] After 6PM + Weekends: [phone] INTERVAL EVENTS / PERTINENT REVIEW OF SYSTEMS: [...] * DORSAL SLIT FORESKIN EXCEPT - General [facility] 11-03-2023 Note HNO ID: [id number] Author: ZAIRA ROBERT MD Service: General Surgery [...] (Res) November 03, 2023, 10:29 AM P: [phone] INTERVAL EVENTS / PERTINENT REVIEW OF SYSTEMS: [...] * DORSAL SLIT FORESKIN EXCEPT - General [facility] 11-03-2023 Note HNO ID: [id number] Author: LYLE TRINIDAD RN Service: ? Author Type: Registered Nurse Type: Progress Notes Filed: 11/03/2023 22:32 Note Text: This underwriter solicitation director was called by another nurse that pt had a witnessed 20 seconds of seizure episode. AMET called and team notified and orders given. [facility] 11-02-2023 Note HNO ID: [id number] Author: LEEANN TELLES MD Service: General Surgery [...] as appropriate, non-distended Leeann Telles MD PGY1 [facility] 11-02-2023 Note HNO ID: [id number] Author: HERMAN SALOMON RN Service: Care Management Author Type: Registered Nurse Type: Care Mgt Progress Note Filed: 11/02/2023 11:43 Note Text: CARE MANAGEMENT WEEKEND PLANNING NOTE DISCHARGE OR POSSIBLE DISCHARGE Date/Time: TBD Disposition: [facility] Transport: Car /Magi Other Concerns: Patient from [place]. Plan is to return at discharge. supervisor picking crew is Magi [phone]. Per Magi, she will provide transport at discharge. She will need to be contacted if patient ready to discharge over the weekend. Magi is requesting an abdominal binder at discharge due to patient's history of self-injurious behavior. 33 year old male POD #4 diagnostic laparoscopy. Patient is non-verbal, developmental delay and lives in custodial. Weekend Oil Refiner Pager #: Please see Treatment Team for Care Management Weekend/Holiday coverage. SIGNATURE: Herman Salomon RN PATIENT NAME: Johnny Devine DATE: November 02, 2023 TIME: 11:42 AM PAGER/CONTACT #: [phone] [facility] 11-02-2023 Note HNO ID: [id number] Author: FRANCK MAGDALENO MD Service: General Surgery [...] , appreciate Recs (below); haskins out at [facility], f/u TOV - Recommend applying [...] Andrews MD Acute Care Surgery Resident PAGER [phone] INTERVAL EVENTS / PERTINENT REVIEW OF SYSTEMS: [...] * DORSAL SLIT FORESKIN EXCEPT - General [facility] 11-01-2023 Note HNO ID: [id number] Author: ANA LUISA FARR MD Service: General [...] Farr MD Acute Care Surgery Resident PAGER [phone] INTERVAL EVENTS / PERTINENT REVIEW OF SYSTEMS: [...] * DORSAL SLIT FORESKIN EXCEPT - General [facility] 10-31-2023 Note HNO ID: [id number] Author: ANA LUISA FARR MD Service: General [...] Farr MD Acute Care Surgery Resident PAGER [phone] INTERVAL EVENTS / PERTINENT REVIEW OF SYSTEMS: [...] Drain Duration Indwelling Urinary Catheter 10/30/23 0811 [facility] Haskins 10 Fr 1 day SURGERY/PROCEDURE: Procedure(s) and Anesthesia Type: * DORSAL SLIT FORESKIN EXCEPT - General [facility] 10-31-2023 Note HNO ID: [id number] Author: HEAVEN CAMACHO MD Service: Urology Author [...] clinical indicators: x Hypophosphatemia Other, please specify [facility] 10-31-2023 Note HNO ID: [id number] Author: BEATRZI MEHTA MD Service: General Surgery Author Type: [...] Mehta MD General Surgery Resident General Surgery: [id number] On nights (6 pm to 6 am) and on Weekends/Holidays, please page the on-call pager: [phone] 10/31/23 2:39 AM [facility] 10-31-2023 Note HNO ID: [id number] Author: JUAQUIN KRISHNAMURTHY RN Service: Nursing Author Type: Registered Nurse Type: Progress Notes Filed: 10/31/2023 01:48 Note Text: Messaged Night team Dr. Mehta about haskins drainage turning bloody. Patient is asleep and comfortable [facility] 10-30-2023 Note HNO ID: [id number] Author: JEREMIE JOAQUIN MD Service: ? Author [...] October 30, 2023 TIME: 8:11 AM CSN: [id number] [facility] 10-30-2023 Note HNO ID: [id number] Author: JEREMIE JOAQUIN MD Service: ? Author Type: Anesthesiologist Type: Anesthesia Procedure Notes Filed: 10/30/2023 11:59 Note Text: ANESTHESIOLOGY PROCEDURE NOTE Airway General Information Procedure Start Time/Medication Administration: 10/30/2023 7:46 AM Patient location during procedure: OR Timeout Performed Pre-procedure: timeout performed Consent Obtained: Yes Patient identity confirmed: arm band, care hat steamer and patient Staffing Anesthesiologist: Jeremie Joaquin MD Performed by: SRNA and anesthesiologist Indications and Patient Condition Indications for airway management: anesthesia Preoxygenated: yes anesthesia circuit Patient position: sniffing Method: rapid sequence Cricoid Pressure: No Manual In-Line Stabilization: No Difficult Mask: No Final Airway Details Final airway type: endotracheal airway Final Endotracheal Airway: ETT Cuffed: yes Successful intubation technique: video laryngoscopy Devices used: [employer] Endotracheal tube insertion site: oral Blade size: [...] October 30, 2023 TIME: 7:58 AM CSN: [id number] [facility] 10-30-2023 Note HNO ID: [id number] Author: FRANCK MAGDALENO MD Service: General Surgery [...] Andrews MD Acute Care Surgery Resident PAGER [phone] INTERVAL EVENTS / PERTINENT REVIEW OF SYSTEMS: [...] <1 day Indwelling Urinary Catheter 10/30/23 0130 [facility] Haskins 8 Fr <1 day SURGERY/PROCEDURE: Procedure(s) and Anesthesia Type: * DORSAL SLIT FORESKIN EXCEPT - General [facility] 10-29-2023 Note HNO ID: [id number] Author: HERMAN SALOMON RN Service: Care Management [...] by: Per Department Practice Potential Transition Plans [facility]/Supervised Living Advance Directives Current Advance Directive: Other Document: See Comment (Legal guardian) In Chart: Yes Up To Date and Valid: Yes Current Living Arrangements and Support Lives with: Other person(s) [facility] Type of Residence: [facility] Care Facility Name: [facility] Support: Home care staff, Family members How do you manage to accomplish the following: Independent: Ambulation Dependent: Bathe/Shower;Dress;Meals/Meal Prep;Going to the bathroom;Medication Management;Transportation to appointments/community Current Services/Equipment Current Post-Acute Service(s): None [place] of Choice Explained: [place] of Choice Given: No Reason Not Given: No placements necessary Are you interested in bedside delivery of your medications? No Discharge Planning Participant(s): Other person(s);Guardian Name/Relationship: Magi/Diffuser Operator Patient/Family Comments: Caregiver Assessment: Caregiver is ready, willing and able to meet the patient's needs as recommended by the inter-professional team: Yes Name of Caregiver: [facility] Transport at Discharge: Transportation Arrangements: Car Destination: Home Needs Prior to Discharge: Needs Prior to Discharge: To Be Determined Post-Acute Discharge Plan: 33 year old male POD #0 diagnostic laparoscopy. Patient is non-verbal, developmental delay and lives in custodial. CM met with patient's legal guardian Delbert and group work program aide Magi at bedside. Plan is to return to custodial at discharge. Per Magi [phone]. [phone], she will provide transport. Magi is requesting an abdominal binder at discharge due to patient's history of self-injurious behavior. CM will continue to follow for transitional care needs. SIGNATURE: Herman Salomon RN PATIENT NAME: Johnny Devine DATE: October 29, 2023 TIME: 4:00 PM CONTACT #: [phone] [facility] 10-29-2023 Note HNO ID: [id number] Author: KENZIE MORE APRN.BACK FILLER OPERATOR Service: ? Author Type: Nurse Community Reinvestment Act Officer Type: Anesthesia Procedure Notes Filed: 10/29/2023 10:18 Note Text: ANESTHESIOLOGY PROCEDURE NOTE Airway General Information Procedure Start Time/Medication Administration: 10/29/2023 10:00 AM Patient location during procedure: OR Timeout Performed Pre-procedure: timeout performed Consent Obtained: Yes Patient identity confirmed: arm band, care hat steamer and family Staffing BACK FILLER OPERATOR: Kenzie More APRN.BACK FILLER OPERATOR Indications and Patient Condition Indications for airway management: anesthesia Preoxygenated: yes anesthesia circuit Method: rapid sequence Difficult Mask: No Final Airway Details Final airway type: endotracheal airway Final Endotracheal Airway: ETT Cuffed: yes Successful intubation technique: video laryngoscopy Devices used: [employer] Endotracheal tube insertion site: oral Blade: Raj Blade size: #4 ETT size (mm): 7.5 Placement verified by: capnometry Cormack-Lehane Classification: grade I - full view of glottis Number of attempts at approach: 1 Failed airway: no Unrecognized esophageal intubation: no Airway not difficult SIGNATURE: Kenzie More APRN.CRNA PATIENT NAME: Johnny Devine DATE: October 29, 2023 TIME: 10:17 AM CSN: [id number] [facility] 10-29-2023 Note HNO ID: [id number] Author: ANA LUISA FARR MD Service: General [...] Farr MD Acute Care Surgery Resident PAGER [phone] INTERVAL EVENTS / PERTINENT REVIEW OF SYSTEMS: [...] Anesthesia Type: * EXPLORATORY LAPAROTOMY - General [facility] 10-28-2023 History of Past i llness Narrative Problem Noted Date Diagnosed Date Resolved Date SBO (small bowel obstruction) 10/28/2023 10/31/2023 documented as of this encounter (statuses as of 11/12/2023) [facility]03-10-2024 History of Past illness Narrative* Problem Noted Date Diagnosed Date Resolved Date SBO (small bowel obstruction) 10/28/2023 10/31/2023 documented as of this encounter (statuses as of 11/29/2023) [facility]03-10-2024 History of Past illness Narrative* Problem Noted Date Diagnosed Date Resolved Date SBO (small bowel obstruction) 10/28/2023 10/31/2023 documented as of this encounter (statuses as of 12/04/2023) [facility]03-10-2024 History of Past illness Narrative* Problem Noted Date Diagnosed Date Resolved Date SBO (small bowel obstruction) 10/28/2023 10/31/2023 documented as of this encounter (statuses as of 12/06/2023) [facility]11-27-2023 Hospital Discharge instructions* Discharge Instructions* Yobany Smith [...] be sent through Care Everywhere. * Bradycardia (Kyrgyz) documented in this [id number] Emergency department Note* Leila Cifuentes RN - 07/16/2023 8:01 AM EST Permission treat given from Cate legal guardian [id number] Emergency department Note* Leila Cifuentes RN - 07/16/2023 8:01 AM EST Permission treat given from Cate legal guardian documented in this [id number] Evaluation + Plan note Diagnostic Tests Pending * Jones Level 07/04/23 [facility]11-07-2023 Telephone encounter Note* Telephone Encounter - Shanna Sauceda RN - 06/26/2023 11:14 AM EST Informed Consent for dental surgery & Anesthesia consent obtained and scanned into Inst[employer]. Scheduled for surgery 07/16/2023. [id number] Miscellaneous Notes* Telephone Encounter - Shanna Sauceda RN - 06/26/2023 11:14 AM EST Informed Consent for dental surgery & Anesthesia consent obtained and scanned into Inst[employer]. Scheduled for surgery 07/16/2023. documented in this [id number] Evaluation note* PSE Appt H&P - Lacey Wilson MD - 06/22/2023 3:10 PM EDT Presurgical Evaluation (Pre-Admission Testing) Consultation Johnny Devine, [id number] 32 year old Male 06/22/2023 Consult placed [...] DENTAL RESTORATIONS; Surgeon: Harpreet Mccurdy DDS; Location: [facility]; Service: Dental ANESTHESIA REVIEW [...] - referring and communicating with other health care associate (when not separately reported) - documenting clinical information in the electronic or other health record - independently interpreting results (not separately reported) and communicating results to the patient/family/caregiver - care coordination (not separately reported). Interviewer signature: Lacey Wilson MD 3:10 PM 06/22/2023 [id number] Miscellaneous Notes* PSE Appt H&P - Lacey Wilson MD - 06/22/2023 3:10 PM EDT Presurgical Evaluation (Pre-Admission Testing) Consultation Johnny Devine, [id number] 32 year old Male 06/22/2023 Consult placed [...] DENTAL RESTORATIONS; Surgeon: Harpreet Mccurdy DDS; Location: [facility] Surgery [place]; Service: Dental ANESTHESIA REVIEW OF SYSTEMS: Eyes/ENT: [...] - referring and communicating with other health care associate (when not separately reported) - documenting clinical information in the electronic or other health record - independently interpreting results (not separately reported) and communicating results to the patient/family/caregiver - care coordination (not separately reported). Interviewer signature: Lacey Wilson MD 3:10 PM 06/22/2023 documented in this [id number] Miscellaneous Notes* Telephone Encounter - Lory [facility] - 05/18/2022 3:18 PM [...] leave a message. * Telephone Encounter - Locappyner Phloronol Sec - 05/17/2022 3:31 PM EDT Pt's aunt returning a call to Dr. Morales to discuss eye care for Johnny. Please try to reach her again at [phone] (Cate Tin) [facility] [place] Miscellaneous Notes* Telephone Encounter - Quirky Sec - 05/08/2022 9:01 AM EDT Nurse from [facility] where he resides called for [facility] for his file. Attn: Melanie Pickard [phone]. Surgery schedulers name and # was provided. [facility] [place] Miscellaneous Notes* Telephone Encounter - Grupo Morales [...] week. 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 Other and combined forms of senile cataract [facility] Diagnosis Caries- Primary Unspecified dental caries [...] aftercare following surgery [facility] Phimosis- Primary Redundant prepuce and phimosis [facility] Diagnosis Screening for genitourinary condition Screening for other and unspecified genitourinary condition [facility] Diagnosis Caries- Primary Unspecified dental caries Pre-op testing- Primary Preoperative examination, unspecified Body mass index (BMI) 31.0-31.9, adult Caries Unspecified dental caries [facility] Diagnosis Sigmoid volvulus (HCC)- Primary Volvulus [facility] Diagnosis Caries- Primary Unspecified dental [...] dental caries documented in this encounter [facility] Work Phone: Evaluation note* Diagnosis Alteration of awareness- Primary [facility] Diagnosis Encounter for dental examination- Primary Dental examination documented in this encounter [facility] Work Phone: Hospital course Narrative No data available for this section [facility] No data available for this section [facility] No data available for this section [facility] Summary Purpose Family History No [...] Caries Tio-Harpreet England, DDS [address] [place] [id number] [facility] PRE SURGICAL EVAL [address] [place] [address] Referral ID Status Reason Start Date Expiration Date V isits Requested Visits Authorized [id number] Pending Review 05/25/2023 05/25/2024 1 1 Scheduling Instructions Your surgical team will reach out to you to schedule a preadmission testing appointment. Question Answer Reason for consult? Recommended PSE Risk Score Specialty Diagnoses / Procedures Referred By Johan mcfadden Referred To Contact Radiology Diagnoses Pre-op exam Procedures XR CHEST PA+LAT 2 VIEWS Franc Beyer MD [address] [place] [address] [facility] DIAGNOSTIC RADIOLOGY [address] [id number] Referral ID Status Reason Start Date Expiration Date Visits Re quested Visits Authorized [id number] Closed 06/22/2023 06/21/2024 1 1 Specialty Diagnoses / Procedures Referred By Contac t Referred To Contact Cardiology Diagnoses Bradycardia History of autism Nonverbal Moderate intellectual disability Yobany Smith PA-C [address] [place] [address] [facility] [address] [place] [address] Referral ID Status Reason Start Date Expiration Date V isits Requested Visits Authorized [id number] Pending Review 07/16/2023 07/16/2024 3 3 Scheduling Instructions Please call the [facility] at [phone] to schedule an appointment if one was [...] (HCC) Procedures CONSULT TO COLO-RECTAL SURGERY OFFICE/OUTPATIENT [facility] 60 MINUTES Victoria Sanchez APRN.[facility] [address] [id number] Juventino Fairbanks MD [address] [place] [address] Referral ID Status Reason Start Date Expiration Date Visits Requested Visits Authorized [id number] Authorized PCP Requested Referral 12/20/2023 12/19/2024 1 1 Specialty Diagnoses / Procedures Referred By Contac t Referred To Contact Anesthesiology Diagnoses Caries Harpreet Mccurdy DDS [address] [id number] [facility] PRE ADMISSION TESTING [address] [place] [address] Referral ID Status Reason Start Date Expiration Date V isits Requested Visits Authorized [id number] Authorized 10/10/2023 10/10/2024 1 1 Scheduling Instructions [...] PA+LAT 2 VIEWS Franc Beyer MD [address] [place] [address] [facility] DIAGNOSTIC RADIOLOGY [address] [place] [address] Referral ID Status Reason Start Date Expiration Date Visits Re quested Visits Authorized [id number] Closed 06/22/2023 06/21/2024 1 1 Reason Onset Date Comments Pre-surgical Evaluation 06/26/2023 Informed Consent for dental surgery & Anesthesia consent obtained Reason Comments bradycardia Low HR (33) Specialty Diagnoses / Procedures Referred By Contmigdalia t Referred To Contact Ambulatory Surgery Diagnoses Caries Caries [[id number]] Procedures UNLISTED PROCEDURE, DENTOALVEOLAR STRUCTURES ANESTHESIA, INTRAORAL PROC, W/BX; NOS DENTAL RESTORATIONS Harpreet Mccurdy, DDS [address] [place] [address] [facility] [address] [place] [address] Phone: [phone] Referral ID Status Reason Start Date Expiration Date Visits Re quested Visits Authorized [id number] 3 3 Reason Comments Photocomposition Keyboard Operator - Other Reason Comments Post Op Reason Onset Date Comments Pre-surgical Evaluation 12/25/2023 DD adult dental restorations 12/27 under [facility] at [place]. PAT completed - consent request sent to main - see future encounter for results. PAT RN spoke to patrick Navarro, [place] address, and 0900 arrival time Reason Onset Date Comments Pre-surgical Evaluation 12/25/2023 Anesthes ia Attestaion for dental surgery scanned in sales assistant entertainment and mediamanager flight Diagnoses / Procedures Referred By Contac t Referred To Contact Ambulatory Surgery Diagnoses Caries Caries [[id number]] Procedures UNLISTED PROCEDURE, DENTOALVEOLAR STRUCTURES ANESTHESIA, INTRAORAL PROC, W/BX; NOS DENTAL RESTORATIONS Kassidy Mari, DMD [address] [place] [id number] [facility] [address] [place] [id number] Phone: [phone] Referral ID Status Reason Start Date Expiration Date Visits Re quested Visits Authorized [id number] 3 3 Reason Comments Seizures Reason Onset Date Comments Medical Record Review 12/16/2024 Reason Comments New Patient Care Teams (unrecognized sec tion and content) Volumetric Weigher Relationship Specialty Start Date End Date Aileen Corcoran DDS [address] [place], [place] [phone] Resident Dentistry 08/20/20 Volumetric Weigher Relationship Specialty Start Date End Date Aileen Corcoran DDS [address] [place] [address] Resident Dentistry 08/20/20 Volumetric Weigher Relationship Specialty Start Date End Date Aileen Corcoran DDS [address] [place], [place] [phone] Resident Dentistry 08/20/20 Volumetric Weigher Relationship Specialty Start Date End Date Aileen Corcoran DDS [address] [place], [place] [phone] Resident Dentistry 08/20/20 Volumetric Weigher Relationship Specialty Start Date End Date Aileen Corcoran DDS [address] [place] [phone] Resident Dentistry 08/20/20 Volumetric Weigher Relationship Specialty Start Date End Date Aileen Corcoran DDS [address] [place] [phone] Resident Dentistry 08/20/20 Volumetric Weigher Relationship Specialty Start Date End Date Aileen Corcoran DDS [address] [place] [address] Resident Dentistry 08/20/20 Volumetric Weigher Relationship Specialty Start Date End Date RosemarieAileen aquino DDS [address] [place] [address] Resident Dentistry 08/20/20 Volumetric Weigher Relationship Specialty Start Date End Date Aileen Corcoran DDS [address] [place] [phone] Resident Dentistry 08/20/20 Volumetric Weigher Relationship Specialty Start Date End Date Aileen Corcoran DDS [address] [place] [phone] Resident Dentistry 08/20/20 Volumetric Weigher Relationship Specialty Start Date End Date Aileen Corcoran DDS [address] [place] [address] Resident Dentistry 08/20/20 Volumetric Weigher Relationship Specialty Start Date End Date RosemarieAileen aquino DDS [address] [place] [phone] Resident Dentistry 08/20/20 Volumetric Weigher Relationship Specialty Start Date End Date RosemarieAileen aquino DDS [address] [place] [address] Resident Dentistry 08/20/20 Ling Coffman APRN-SUBWAY CONDUCTOR [address] [place] [phone] STITCH BONDING MACHINE OPERATOR Anesthesiology 01/19/24 Volumetric Weigher Relationship Specialty Start Date End Date Aileen Corcoran DDS [address] [place] [address] Resident Dentistry 08/20/20 Ling CoffmanSAMEER [address] [place] [address] STITCH BONDING MACHINE OPERATOR Anesthesiology 01/19/24 Source Comments (unrecognize d section and content) In the event this informatio n is protected by the Federal Confidentiality of Alcohol and Drug Abuse Patient Records regulations: The Federal rules restrict any use of the information to criminally investigate or prosecute any alcohol or drug abuse patient.[facility] the event this information is protected by the Federal Confidentiality of Alcohol and Drug Abuse Patient Records regulations: The Federal rules restrict any use of the information to criminally investigate or prosecute any alcohol or drug abuse patient.[facility] [place] the event this information is protected by the Federal Confidentiality of Alcohol and Drug Abuse Patient Records regulations: The Federal rules restrict any use of the information to criminally investigate or prosecute any alcohol or drug abuse patient.[facility] [place] the event this information is protected by the Federal Confidentiality of Alcohol and Drug Abuse Patient Records regulations: The Federal rules restrict any use of the information to criminally investigate or prosecute any alcohol or drug abuse patient.[facility] [place] the event this information is protected by the Federal Confidentiality of Alcohol and Drug Abuse Patient Records regulations: The Federal rules restrict any use of the information to criminally investigate or prosecute any alcohol or drug abuse patient.[facility] [place] the event this information is protected by the Federal Confidentiality of Alcohol and Drug Abuse Patient Records regulations: The Federal rules restrict any use of the information to criminally investigate or prosecute any alcohol or drug abuse patient.[facility] [place] the event this information is protected by the Federal Confidentiality of Alcohol and Drug Abuse Patient Records regulations: The Federal rules restrict any use of the information to criminally investigate or prosecute any alcohol or drug abuse patient.[facility] [place] the event this information is protected by the Federal Confidentiality of Alcohol and Drug Abuse Patient Records regulations: The Federal rules restrict any use of the information to criminally investigate or prosecute any alcohol or drug abuse patient.[facility] [place] the event this information is protected by the Federal Confidentiality of Alcohol and Drug Abuse Patient Records regulations: The Federal rules restrict any use of the information to criminally investigate or prosecute any alcohol or drug abuse patient.[facility] [place] the event this information is protected by the Federal Confidentiality of Alcohol and Drug Abuse Patient Records regulations: The Federal rules restrict any use of the information to criminally investigate or prosecute any alcohol or drug abuse patient.[facility] (unrecognized sect ion and content) No Status Records FoundNo Status Records FoundNo Status Records FoundNo Status Records FoundNo Status Records FoundNo Status Records Found INFORMATION SOURCE (unrecogn ized section and content) DATE CREATED AUTHOR [facility]/26/2023 [facility] DATE CREATED AUTHOR AUTHOR'S ORGANIZ ATION 01/13/2024 [facility] DATE CREATED AUTHOR AUTHOR'S ORGANIZ ATION 02/15/2024 Benson Mike [facility] DATE CREATED AUTHOR AUTHOR'S ORGANIZ ATION 02/22/2024 Benson Mike [facility] DATE CREATED AUTHOR AUTHOR'S ORGANIZ ATION 12/04/2024 [facility] DATE CREATED AUTHOR AUTHOR'S ORGANIZ ATION 12/17/2024 [facility] Scheduled Active and Recently Administ ered Medications (unrecognized section and content) Medication Order 07/14/2023 07/15/2023 07/16/2023 lactated ringers iv bolus (COMPLETED) 1,000 mL, at 9,999 mL/hr, Intravenous, FLUID BOLUS, 1 dose, On 07/16/23 at 0954 0932 (IV New Bag - P rovider: Jose Miguel Colbetr RN)1207 (IV Stop - Provider: Jose Miguel [...] socket sites after extraction) lidocaine-epinephrine (XYLOCAINE) 2 %-1:312060 injection (CANCELED) PRN, Starting on Sun12/28/23 at [...] BE BASED ON THE PRIMARY CLINICAL RECORDS. [employer] provides no warranty or guarantee of the accuracy or completeness of information in this document.
[2025-04-08 04:07] LABS: Lithium (Eskalith(R)), Serum 1.1 mmol/L (0.5-1.2)
== END 2025-04-07 07:15 | disposition home or self-care (01) ==
LOC: LAB 07:14
PROVIDERS: PCP Family Medicine; Visit Provider Family Medicine
DX: F84.0 Autistic disorder (principal); F42.9 Obsessive-compulsive disorder, unspecified; F31.9 Bipolar disorder, unspecified; Z79.899 Other long term (current) drug therapy
CPT/HCPCS: 36415; 80178

== ENCOUNTER 2025-05-14 07:11 | Outpatient (OUT) | payer MEDICARE, MEDICAID, SELFPAY ==
--- OUTSIDE RECORDS SUMMARY | 2025-05-14 07:13 | XMS_ITS | CCD ---
Author Organization [facility] Clini[facility] Care Team Providers Care Basting Marker Name Role Phone Jewell MATA, Gallagher Unavailable [phone] Unavailable Primary Care Provider Unavailabl e Unavailable [...] Attending Unavailable CRANE, HERMAN Admitting Unavailable Markiv BAR TENDER-COLLATERAL ANALYST, Ling Unavailable Unavailable Primary Care Provider Unavailabl [...] Clarithromycin Drug Allergy 05-04-20 Other: See Comments [facility] (20 sources) Clarithromycin; Translations: [CLARITHROMYCIN] Propensity to adverse reactions to drug 06-12-20 18 Other, Nausea and Vomiting [facility] Work Phone: (9 sources) Clarithromycin Drug Allergy 05-04-20 Other: See Comments [facility] (1 source) Clarithromycin Drug Allergy [facility] Repository Medications Current Medications Medication Drug [...] take 1 capsule by mouth twice daily [place] 300 MG capsule TAKE ONE CAPSULE BY [...] mouth Active take 1 capsule by mo [facility] once daily at bedtime [...] 4 mg/0.1 mL nasal liquid Use 1 [place] in one nostril (alternate sides) as needed [...] Start: 04-19-2022 take 2 tablets by mo [facility] twice daily naltrexone (TREXAN) 50 mg tablet TAKE TWO TABLETS BY MOUTH TWICE DAILY REVIA 0 04/19/2022 Active Start: 04-19-2022 [facility] naltrexone (TREXAN) 50 [...] nausea or vomiting Active polyethylene glycol 3350 76783 mg powder for oral solution (20 sources) Osmotic Laxative Start: Polyethylene Glycol 3350 (PEG 3350) 17 GM/SCOOP Powder 02/23/2025 Active Start: 01-24-2021 End: 12-28-2023 polyethylene glycol 3350 (AR RALAX, GLYCOLAX) 17 gram/dose powder Take 17 [...] 08-25-19 Chronic Other aftercare (5 sources) 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 steam (current) drug therapy; Translations: [OTH HALF-WAY CURRENT DRUG THERAPY] Onset: 12-04-19 Episodic Other [...] Remisol Chem Physician Orderon 02-13-2024 Physician Order [id number]# 1.00TIFF Normal [facility] Valproic Acidon 02-13-2024 Valpro Acid Lvl 98 microgram/mL Normal 50-99 Fish [facility] Comment on above: Performed By: #### 2 [id number] #### [facility] [address] [place] [address] Lara 01-11-2024 CNPN Telephone (CORSMN) JOHNNY DEVINE ([id number]) 1990 M Date Time Provider Department 01/11/24 CRIS DINH During your visit today, we recorded the following information about you: Cris Dinh, RN 01/11/2024 1:50 PM Signed Jessica from [facility] [phone] is caller. 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 Normal [facility] Anesthesia Preprocedure Eval uationon 12-28-2023 Can Doffer Authentication Interface Message Text ASA: 3 NPO [...] and physical examination. Attestation: MHPATFORM Normal The [facility] Anesthesia Transfer Of Careo n 12-28-2023 Can Doffer Authentication Interface Message Text Patient taken to [...] DENTAL RESTORATIONS; Surgeon: Harpreet Mccurdy DDS; Location: [facility] Surgery [place]; Service: Dental Allergies: Biaxin [clarithromycin] Basic Operating Room Facts: Surgeon(s): Mari Traore DMD Anesthesiologist: Linda Saldivar MD CUSTOMER SERVICE VOICE: Selena Camacho APRN-CRNA DENTAL RESTORATIONS (Bilateral: Mouth) [...] [phone] Comment: The [place] Diabetes Association (ADA) provides guidance for cutoff [...] Standards of Medical Care in Diabetes 2016, [place] Diabetes Association. Diabetes Care. 2016.39(Suppl 1). 8 0.70 8.2 11/06/23 [phone] Comment: The [place] Diabetes Association (ADA) provides guidance for cutoff [...] Standards of Medical Care in Diabetes 2016, [place] Diabetes Association. Diabetes Care. 2016.39(Suppl 1). 6 0.69 8 (more content not included)... Normal [facility] Blood Attestationon 12-28-19 Can Doffer Authentication Interface Message Text Blood Attestation: ATTESTATION OF INFORMED CONSENT FOR BLOOD: The transfusion of blood and/or blood components were discussed with the patient and/or legal merchandiser retail representative. The risks, benefits and alternatives were reviewed. Questions regarding blood transfusions were answered. The patient /or the patient's legal merchandiser retail representative agree with the plan for transfusion of blood and/or blood components. Normal [facility] Brief Operative Noteon 12-27 Can Doffer Authentication Interface Message Text Brief Operative Note PHE OR 3 Johnny Devine 33 year old male Surgical Contact Serial Number: [id number] Preoperative Diagnosis: Pre-op Diagnosis * Caries [K02.9] Moderate intellectual disability [F79] Postoperative Diagnosis: Moderate intellectual disability [F79] Procedures: Comprehensive exam [53408] Full mouth X-ray [ 39858] Extractions [04005] Restorations [66560] Prophy 91344] Fluoride treatment [58235] Surgeon(s): Surgeon(s): Mari Traore DMD Staff: Instructional Support Services Director Nurse: Henrietta Johnson Anesthesia: General Anesthesia [...] Whiting DDS 12/28/2023 1;48 pm Normal [facility] OP Noteon 12-28-2023 Can Doffer Authentication Interface Message Text Surgical Case Number Data Unavailable Operating Room Data Unavailable Preoperative Diagnosis(es): Pre-op Diagnosis * Caries [K02.9] Moderate intellectual disability [F79] Postoperative Diagnosis(es): Moderate intellectual disability[F79] @ENCORD@ Surgeon: Dr. Mari Traore DMD Executive Recruiter Surgeon: Reema Whiting DDS Anesthesia: General- Nasal [...] 4 mg/0.1 mL nasal liquid Use 1 [place] in one nostril (alternate sides) as needed [...] Whiting DDS 12/28/2023 1:53 pm Normal [facility] Progress Noteson 12-28-2023 Can Doffer Authentication Interface Message Text Patient takes his seizure medication with pudding, facility held them today for dental surgery. Caregiver brought capsules with them to pre-op. Per Dr. Saldivar, divalproex 125 mg x 4 capsules (500 mg) were opened and sprinkles given to patient with 50 mL of water in pre-op. 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 MB cusp tip was visualized upon extraction of #17, but well encased in bone and would not be exposed to the oral cavity following healing of the extraction site. Preoperative Diagnosis(es): Pre-op Diagnosis * Caries [K02.9] Moderate intellectual disability [F79] Postoperative Diagnosis(es): Moderate intellectual disability[F79] Surgeon: Dr. Mari Traore DMD Executive Recruiter Surgeon: Reema Whiting DDS Anesthesia: General- Nasal [...] at end of surgery: Stable Normal [facility] CHRISTINA Delgado Can Doffer Authentication Interface Message Text Addendum 12/21/2023- Caregiver @ [facility] facility called to relay that patient unable to take medications without pudding. Per Dr. Newell: Instruct them to take the meds at night. Please then coordinate with either the anesthesia team or surgical team to order IV depacon so he can get his depakote. I would have the facility bring his oral depakote for after surgery If they can't get the depacon at [place] CHRISTINA RN updated nursing staff @ [facility]. Normal [facility] BASIC METABOLIC PANELon 05-0 Anion gap [Moles/Vol] 13 mmol/L Normal 10-20 [facility] Comment on above: Performed By: #### C H8 ####[facility] [id number] [place], [place], Calcium [Mass/Vol] 9.9 mg/dL Normal 8.6-10.3 [facility] Comment on above: Performed By: #### C H8 ####[facility] [id number] [place], [place], Chloride [Moles/Vol] 106 mmol/L Normal 98-107 [facility] Comment on above: Performed By: #### C H8 ####S PATHOLOGY [id number] [place], [place], CO2 [Moles/Vol] 25 mmol/L Normal 21-31 [facility] Comment on above: Performed By: #### C H8 ####S PATHOLOGY [id number] [place], [place], Creatinine [Mass/Vol] 0.93 mg/dL Normal 0.70-1.30 [facility] Comment on above: Performed By: #### C H8 ####S PATHOLOGY [id number] [place], [place], ESTIMATED GFR (CKD-EPI) 113 mL/min/1.73sqm Normal >=60 [facility] Comment on above: Result Comment: 2020 [...] Inclusion of Race in Diagnosing Kidney Disease. [place] Journal of Kidney Diseases 2021;79(2):268-88.e1. 2. N Engl J Med 1 Vol. 385 Issue 19 Pages 9313-0761 Performed By: #### C H8 ####S PATHOLOGY [id number] [place], [place], Glucose [Mass/Vol] 115 mg/dL High 74-109 [facility] Comment on above: Performed By: #### C H8 ####S PATHOLOGY [id number] [place], [place], Potassium [Moles/Vol] 4.6 mmol/L Normal 3.5-5.0 [facility] Comment on above: Performed By: #### C H8 ####[facility] [id number] [place], [place], Sodium [Moles/Vol] 139 mmol/L Normal 136-145 [facility] Comment on above: Performed By: #### C H8 ####[facility] [id number] [place], [place], Urea nitrogen [Mass/Vol] 15 mg/dL Normal 7-25 [facility] Comment on above: Performed By: #### C H8 ####[facility] [id number] [place], [place], Basic metabolic 2000 panelon 12-19-2023 Anion [...] Inclusion of Race in Diagnosing Kidney Disease. Russian Journal of Kidney Diseases 2021;79(2):268-88.e1. 2. N Engl J Med 2020 Vol. 385 Issue 19 Pages 2383-3404 Glucose [Mass/Vol] 115 mg/dL High 74 - 109 mg/dL [facility] Interpretation and review of laboratory results Abnormal [facility] Potassium [Moles/Vol] 4.6 mmol/L 3.5 - 5.0 mmol/L [facility] Sodium [Moles/Vol] 139 mmol/L 136 - 145 mmol/L [facility] Urea nitrogen [Mass/Vol] 15 mg/dL 7 - 25 mg/dL [facility] PAT Appt H AND Ross 4 Can Doffer Authentication Interface Message Text Patient was identified by name and date of . Jaswinder Arredondo Patient at risk for falls:No Falls Risk protocol implemented: N/A Normal [facility] Patient Instructionson 12-18 Can Doffer Authentication Interface Message Text [facility] staff: Since patient is unable to take [...] for pain. Please hold all Vitamin E, [place] 3, fish oil and herbal supplements for 1 week prior to surgery. Please use this LIST to prepare for your surgery/procedure: ? Assume that any lab or testing done during your Pre-admission testing appointment is within normal limits unless otherwise contacted. ? Expect a call from [facility] one business day prior to surgery for [...] questions. Contact the Pre-Admission Testing department at [phone] or your surgeon's office with any questions [...] stay with you after surgery. Please call [employer] if you need transportation assistance or have concerns about going home [phone]. ? SLEEP APNEA PATIENTS: Bring your sleep apnea machine and mask. ? PLEASE BE ON TIME. A late arrival may result in the cancellation/ delay of your surgery. Thank you for choosing [facility]; it is our pleasure to care for you Normal [facility] 12-03-2023 [facility] Office Visit (UROLMN ) JOHNNY DEVINE ([id number]) 1990 M Date Time Provider Department 12/03/23 [...] OFFICE/OUTPATIENT EST PT MAY NOT REQ PHYS/QHP [13392] LOS History for Encounter Encounter Status:Closed by OSCAR RUIZ on 12/03/23 Normal [facility] CNOVon 11-28-2023 CNOV Office Visit (CORTEZ ) NILSONJOHNNY ([id number]) 1990 M Date Time Provider Department 11/28/23 [...] Victoria Sanchez APRN.CNP 11/28/2023 10:19 AM Signed [facility] Clinic Date: November 28, 2023 Johnny Devine 33 year old male CHIEF COMPLAINT: Patient presents for follow up from surgery. HPI: Here for follow up after diagnostic laparotomy on 10/29/[address] Robin. Patient also underwent a dorsal slit procedure with urology on 10/30/2023 for paraphimosis. Patient with a import/export agent today to discuss his postoperative course since [...] ICD10: Z48.89 (more content not included)... 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 [3602] Prescriptions as of 11/12/2023 [...] Encounter Status:Closed by CRIS DINH on 3/25/24 [facility] metabolic 2000 panelon 11-07-2023 Anion gap [Moles/Vol] 10 mmol/L Normal 9-18 [facility] Comment on above: Order Comment: Speci men Type: BLOOD SPECIMEN Ordering Facility: [facility] Address: [address] [place] [address] Performed By: #### 2 4321-2, , 2776-08 #### [facility] CLIA [id number] [address] [place] [address] [place] Calcium [Mass/Vol] 8.2 mg/dL Low 8.5-10.2 [facility] Comment on above: Order Comment: Speci men Type: BLOOD SPECIMEN Ordering Facility: [facility] Address: [address] [place] [address] Performed By: #### 2 4321-2, , 2776-08 #### [facility] CLIA [id number] [address] [place] [address] [place] Chloride [Moles/Vol] 110 mmol/L High 97-105 [facility] Comment on above: Order Comment: Speci men Type: BLOOD SPECIMEN Ordering Facility: [facility] Address: [address] [place] [address] Performed By: #### 2 4321-2, , 2776-08 #### [facility] CLIA [id number] [address] [place] [address] [place] CO2 [Moles/Vol] 21 mmol/L Low 22-30 [facility] Comment on above: Order Comment: Speci men Type: BLOOD SPECIMEN Ordering Facility: [facility] Address: [address] [place] [address] Performed By: #### 2 4321-2, , 2776-08 #### [facility] CLIA [id number] [address] [place] [address] [place] Creatinine [Mass/Vol] 0.70 mg/dL Low 0.73-1.22 [facility] Comment on above: Order Comment: Sana zuñiga Type: BLOOD SPECIMEN Ordering Facility: [facility] Address: [address] [place] [address] Performed By: #### 2 4321-2, , 2776-08 #### [facility] CLIA [id number] [address] [place] [address] [place] Creatinine and Glomerular filtration rate.predicted panel (S/P/Bld) 126 mL/min/1.73m??? Normal >=60 [facility] Comment on above: Order Comment: Sana zuñiga Type: BLOOD SPECIMEN Ordering Facility: [facility] Address: [address] [place] [address] Result Comment: Lor mated Glomerular Filtration Rate [...] #### [facility] CLIA [id number] [address] [place] [address] [place] Glucose [Mass/Vol] 91 mg/dL Normal 74-99 [facility] Comment on above: Order Comment: Sana zuñiga Type: BLOOD SPECIMEN Ordering Facility: [facility] Address: [address] [place] [address] Result Comment: The [place] Diabetes Association (ADA) provides guidance for cutoff [...] Standards of Medical Care in Diabetes 2016, [place] Diabetes Association. Diabetes Care. 2016.39(Suppl 1). Performed By: #### 2 4321-2, , 2776-08 #### [facility] CLIA [id number] [address] [place] [address] [place] Potassium [Moles/Vol] 4.4 mmol/L Normal 3.7-5.1 [facility] Comment on above: Order Comment: Speci men Type: BLOOD SPECIMEN Ordering Facility: [facility] Address: [address] [place] [address] Performed By: #### 2 4321-2, , 2776-08 #### [facility] CLIA [id number] [address] [place] [address] [place] Sodium [Moles/Vol] 141 mmol/L Normal 136-144 [facility] Comment on above: Order Comment: Speci men Type: BLOOD SPECIMEN Ordering Facility: [facility] Address: [address] [place] [address] Performed By: #### 2 432-2, , 2776-08 #### [facility] CLIA [id number] [address] [place] [address] [place] Urea nitrogen [Mass/Vol] 8 mg/dL Low 9-24 [facility] Comment on above: Order Comment: Speci men Type: BLOOD SPECIMEN Ordering Facility: [facility] Address: [address] [place] [address] Performed By: #### 2 432-2, , 2776-08 #### [facility] CLIA [id number] [address] [place], [place] [id number] [place] CBC panel Auto (Bld)on 11-06 Erythrocyte distribution width (RBC) [Ratio] 15.1 % High 11.5-15.0 [facility] Comment on above: Order Comment: Speci men Type: BLOOD SPECIMENOrdering Facility: [facility] Address: [address] [place] [address] Performed By: #### 5 8410-2 ####[facility] [id number] [place] [address] [place] Hematocrit (Bld) [Volume fraction] 31.4 % Low 39.0-51.0 [facility] Comment on above: Order Comment: Speci men Type: BLOOD SPECIMENOrdering Facility: [facility] Address: [address] [place] [address] Performed By: #### 5 8410-2 ####[facility] [id number] [place] [address] [place] Hemoglobin (Bld) [Mass/Vol] 9.9 g/dL Low 13.0-17.0 [facility] Comment on above: Order Comment: Speci men Type: BLOOD SPECIMENOrdering Facility: [facility] Address: [address] [place] [address] Performed By: #### 5 8410-2 ####[facility] [id number] [place] [address] [place] MCH (RBC) [Entitic mass] 27.3 pg Normal 26.0-34.0 [facility] Comment on above: Order Comment: Speci men Type: BLOOD SPECIMENOrdering Facility: [facility] Address: [address] [place] [address] Performed By: #### 5 8410-2 ####[facility] [id number] [place] [address] [place] MCHC (RBC) [Mass/Vol] 31.5 g/dL Normal 30.5-36.0 [facility] Comment on above: Order Comment: Speci men Type: BLOOD SPECIMENOrdering Facility: [facility] Address: [address] [place] [address] Performed By: #### 5 8410-2 ####[facility] [id number] [place] [address] [place] MCV (RBC) [Entitic vol] 86.5 fL Normal 80.0-100.0 [facility] Comment on above: Order Comment: Speci men Type: BLOOD SPECIMENOrdering Facility: [facility] Address: [address] [place] [address] Performed By: #### 5 8410-2 ####[facility] [id number] [place] [address] [place] Nucleated RBC (Bld) [#/Vol] 10*3/uL Normal <0.01 [facility] Comment on above: Order Comment: Speci men Type: BLOOD SPECIMENOrdering Facility: [facility] Address: [address] [place] [address] Performed By: #### 5 8410-2 ####[facility] [id number] [place] [address] [place] Platelet mean volume (Bld) [Entitic vol] 9.4 fL Normal 9.0-12.7 [facility] Comment on above: Order Comment: Speci men Type: BLOOD SPECIMENOrdering Facility: [facility] Address: [address] [place] [address] Performed By: #### 5 8410-2 ####[facility] [id number] [place] [address] [place] Platelets (Bld) [#/Vol] 215 10*3/uL Normal 150-400 [facility] Comment on above: Order Comment: Speci men Type: BLOOD SPECIMENOrdering Facility: [facility] Address: [address] [place] [address] Performed By: #### 5 8410-2 ####[facility] [id number] [place] [address] [place] RBC (Bld) [#/Vol] 3.63 10*6/uL Low 4.20-6.00 [facility] Comment on above: Order Comment: Speci men Type: BLOOD SPECIMENOrdering Facility: [facility] Address: [address] [place] [address] Performed By: #### 5 8410-2 ####[facility] [id number] [place] [address] [place] WBC (Bld) [#/Vol] 8.67 10*3/uL Normal 3.70-11.00 [facility] Comment on above: Order Comment: Speci men Type: BLOOD SPECIMENOrdering Facility: [facility] Address: [address] [place] [address] Performed By: #### 5 8410-2 ####[facility] [id number] [place] [address] [place] CNCOon 11-07-2023 CNCO Letter Text Normal [facility] CNDSon 11-07-2023 CNDS HNO ID: [id number] Author: SAMUEL ROBIN MD Service: General Surgery [...] PSH who presents as a transfer to [facility] from [facility] ED for further management of small bowel obstruction. Given patient's baseline cognitive status, NGT difficult to maintain. He was admitted to the [facility] under care of general surgery and was taken to the OR the following morning for diagnostic laparoscopy. Intra-operative findings demonstrated no adhesins, no apparent hernias, dilated small/large bowel, redundant sigmoid c/f volvulus, easily reduced. After recovering in the PACU, he was taken to the [facility] with NGT in place. Patient arrived to [facility] with 8 Fr pediatric haskins catheter [...] in home regimen. Stable for discharge to jail. Neurology Recommendations on Discharge: - Discharge on anti-epileptic medications as prescribed - Please schedule outpatient follow-up with epilepsy - Please order outpatient MRI without contrast (3T epilepsy protocol) to be done prior to epilepsy appointment Active Hospital Problems Diagnosis Date Noted Oropharyngeal dysphagia 11/06/2023 Epilepsy ([facility]) 11/06/2023 S/P laparoscopy 11/05/2023 Acute postoperative pain 11/05/2023 Obesity, Class I, BMI 30-34.9 11/02/2023 Developmental non-verbal disorder Obsessive-compulsive disorder 09/16/2018 Moderate intellectual disability 09/16/2018 Hypothyroidism 09/16/2018 Bipolar disorder ([facility]) 09/16/2018 Resolved Hospital Problems Diagnosis Date Noted Date Resolved SBO (small bowel obstruction) ([facility]) 10/28/2023 10/31/2023 Transitions of Care Critical Issues: Follow up with Dr. Fairbanks MRI as outpatient and follow up with Neurology in 2 weeks LABS AND PROCEDURES PENDING AT DISCHARGE: No pending results. CONSULTING TEAMS DURING HOSPIT (more content not included)... Normal [facility] CONSULT PROGon 11-07-2023 CONSULT PROG HNO ID: [id number] Author: BRUCE RESENDIZ MD Service: Neurology General [...] November 06, 2023 TIME: 8:36 AM Normal [facility] Magnesium SerPl-mCncon 11-06 Magnesium [Mass/Vol] 2.1 mg/dL Normal 1.7-2.3 [facility] Comment on above: Order Comment: Speci men Type: BLOOD SPECIMEN Ordering Facility: [facility] Address: [address] [place] [address] Performed By: #### 2 4321-2, 23178-1, 2777-1 #### [facility] CLIA [id number] [address] [place] [address] [place] [address] [place] NURSING PROGon 11-07-2023 NURSING PROG HNO ID: [id number] Author: MAYANK READ RN Service: Nursing Author Type: Registered Nurse Type: Nursing Progress Note Filed: 11/07/2023 14:53 Note Text: Pt is discharged to a jail, phlebotomy supervisor Magi just arrived to grape picker. Reviewed discharge paper works and handed it to the phlebotomy supervisor. IV removed, pt tolerated. EEG removed by agricultural engineering technicians. Normal [facility] NUTRITIONon 11-07-2023 NUTRITION HNO ID: [id number] Author: RAFAELA OCOL DTR Service: Nutrition Therapy Author Type: Fleet Manager Type: Nutrition Filed: 11/07/2023 13:38 Note Text: NUTRITION THERAPY ELECTRIC POWER MACHINE OPERATOR NOTE SERVICE DATE: 11/07/2023 SERVICE TIME: 1000 [...] November 07, 2023 TIME: 1:38 PM Normal [facility] Phosphate SerPl-mCncon 11-06 Phosphate [Mass/Vol] 4.1 mg/dL Normal 2.7-4.8 [facility] Comment on above: Order Comment: Speci men Type: BLOOD SPECIMEN Ordering Facility: [facility] Address: [address] [place] [address] Performed By: #### 2 4321-2, 90080-5, 2777-1 #### [facility] CLIA [id number] [address] [place] [address] [id number] [address] [place] Basic metabolic 2000 panelon 11-06-2023 Anion gap [Moles/Vol] 16 mmol/L Normal 9-18 [facility] Comment on above: Order Comment: Speci men Type: BLOOD SPECIMEN Ordering Facility: [facility] Address: [address] [place] [address] Performed By: #### 2 4321-2, , 2776-08 #### [facility] CLIA [id number] [address] [place] [address] [place] Calcium [Mass/Vol] 8.9 mg/dL Normal 8.5-10.2 [facility] Comment on above: Order Comment: Speci men Type: BLOOD SPECIMEN Ordering Facility: [facility] Address: [address] [place] [address] Performed By: #### 2 4321-2, , 2776-08 #### [facility] CLIA [id number] [address] [place] [address] [place] Chloride [Moles/Vol] 112 mmol/L High 97-105 [facility] Comment on above: Order Comment: Speci men Type: BLOOD SPECIMEN Ordering Facility: [facility] Address: [address] [place] [address] Performed By: #### 2 4321-2, , 2776-08 #### [facility] CLIA [id number] [address] [place] [address] [place] CO2 [Moles/Vol] 18 mmol/L Low 22-30 [facility] Comment on above: Order Comment: Speci men Type: BLOOD SPECIMEN Ordering Facility: [facility] Address: [address] [place] [address] Performed By: #### 2 4321-2, , 2776-08 #### [facility] CLIA [id number] [address] [place] [address] [place] Creatinine [Mass/Vol] 0.69 mg/dL Low 0.73-1.22 [facility] Comment on above: Order Comment: Sana zuñiga Type: BLOOD SPECIMEN Ordering Facility: [facility] Address: [address] [place] [address] Performed By: #### 2 4321-2, , 2776-08 #### [facility] CLIA [id number] [address] [place] [address] [place] Creatinine and Glomerular filtration rate.predicted panel (S/P/Bld) 127 mL/min/1.73m??? Normal >=60 [facility] Comment on above: Order Comment: Sana zuñiga Type: BLOOD SPECIMEN Ordering Facility: [facility] Address: [address] [place] [address] Result Comment: Lor mated Glomerular Filtration Rate [...] #### [facility] CLIA [id number] [address] [place] [address] [place] Glucose [Mass/Vol] 83 mg/dL Normal 74-99 [facility] Comment on above: Order Comment: Sana zuñiga Type: BLOOD SPECIMEN Ordering Facility: [facility] Address: [address] [place] [address] Result Comment: The [place] Diabetes [employer] (ADA) provides guidance for cutoff [...] Standards of Medical Care in Diabetes 2016, [place] [employer]. Diabetes Care. 2016.39(Suppl 1). Performed By: #### 2 4321-2, , 2776-08 #### [facility] CLIA [id number] [address] [place] [address] [place] Potassium [Moles/Vol] 4.9 mmol/L Normal 3.7-5.1 [facility] Comment on above: Order Comment: Speci men Type: BLOOD SPECIMEN Ordering Facility: [facility] Address: [address] [place] [address] Performed By: #### 2 4321-2, , 2776-08 #### [facility] CLIA [id number] [address] [place] [address] [place] Sodium [Moles/Vol] 146 mmol/L High 136-144 [facility] Comment on above: Order Comment: Speci men Type: BLOOD SPECIMEN Ordering Facility: [facility] Address: [address] [place] [address] Performed By: #### 2 432-2, , 2776-08 #### [facility] CLIA [id number] [address] [place] [address] [place] Urea nitrogen [Mass/Vol] 6 mg/dL Low 9-24 [facility] Comment on above: Order Comment: Speci men Type: BLOOD SPECIMEN Ordering Facility: [facility] Address: [address] [place] [address] Performed By: #### 2 4321-2, , 2776-08 #### [facility] CLIA [id number] [address] [place], [place] [address] [place] CBC panel Auto (Bld)on 11-05 Erythrocyte distribution width (RBC) [Ratio] 14.8 % Normal 11.5-15.0 [facility] Comment on above: Order Comment: Speci men Type: BLOOD SPECIMEN Ordering Facility: [facility] Address: [address] [place] [address] Performed By: #### 2 777-1, 89093-4, #### [facility] CLIA [id number] [address] [place] [address] [place] Hematocrit (Bld) [Volume fraction] 31.3 % Low 39.0-51.0 [facility] Comment on above: Order Comment: Speci men Type: BLOOD SPECIMEN Ordering Facility: [facility] Address: [address] [place] [address] Performed By: #### 2 777-1, 59451-5, #### [facility] CLIA [id number] [address] [place] [address] [place] Hemoglobin (Bld) [Mass/Vol] 9.8 g/dL Low 13.0-17.0 [facility] Comment on above: Order Comment: Speci men Type: BLOOD SPECIMEN Ordering Facility: [facility] Address: [address] [place] [address] Performed By: #### 2 777-1, , #### [facility] CLIA [id number] [address] [place] [address] [place] MCH (RBC) [Entitic mass] 26.4 pg Normal 26.0-34.0 [facility] Comment on above: Order Comment: Speci men Type: BLOOD SPECIMEN Ordering Facility: [facility] Address: [address] [place] [address] Performed By: #### 2 777-1, 52193-9, #### [facility] CLIA [id number] [address] [place], [place] [address] [place] MCHC (RBC) [Mass/Vol] 31.3 g/dL Normal 30.5-36.0 [facility] Comment on above: Order Comment: Speci men Type: BLOOD SPECIMEN Ordering Facility: [facility] Address: [address] [place] [address] Performed By: #### 2 777-1, 87745-2, #### [facility] CLIA [id number] [address] [place] [address] [place] MCV (RBC) [Entitic vol] 84.4 fL Normal 80.0-100.0 [facility] Comment on above: Order Comment: Speci men Type: BLOOD SPECIMEN Ordering Facility: [facility] Address: [address] [place] [address] Performed By: #### 2 777-1, 58095-6, #### [facility] CLIA [id number] [address] [place] [address] [place] Nucleated RBC (Bld) [#/Vol] 10*3/uL Normal <0.01 [facility] Comment on above: Order Comment: Speci men Type: BLOOD SPECIMEN Ordering Facility: [facility] Address: [address] [place] [address] Performed By: #### 2 777-1, 08146-3, #### [facility] CLIA [id number] [address] [place] [address] [place] Platelet mean volume (Bld) [Entitic vol] 8.9 fL Low 9.0-12.7 [facility] Comment on above: Order Comment: Speci men Type: BLOOD SPECIMEN Ordering Facility: [facility] Address: [address] [place] [address] Performed By: #### 2 777-1, 76799-8, #### [facility] CLIA [id number] [address] [place] [address] [place] Platelets (Bld) [#/Vol] 244 10*3/uL Normal 150-400 [facility] Comment on above: Order Comment: Speci men Type: BLOOD SPECIMEN Ordering Facility: [facility] Address: [address] [place] [address] Performed By: #### 2 777-1, 84668-7, #### [facility] CLIA [id number] [address] [place] [address] [place] RBC (Bld) [#/Vol] 3.71 10*6/uL Low 4.20-6.00 [facility] Comment on above: Order Comment: Speci men Type: BLOOD SPECIMEN Ordering Facility: [facility] Address: [address] [place] [address] Performed By: #### 2 777-1, 94125-0, #### [facility] CLIA [id number] [address] [place] [address] [place] WBC (Bld) [#/Vol] 7.59 10*3/uL Normal 3.70-11.00 [facility] Comment on above: Order Comment: Speci men Type: BLOOD SPECIMEN Ordering Facility: [facility] Address: [address] [place] [address] Performed By: #### 2 777-1, 46886-8, #### [facility] CLIA [id number] [address] [place] [address] [place] CONSULT PROGon 11-06-2023 CONSULT PROG HNO ID: [id number] Author: KIM BHAKTA MD Service: Neurology General [...] for now. Kim Bhakta MD Staff Neurologist [facility] Normal [facility] Magnesium SerPl-mCncon 11-05 Magnesium [Mass/Vol] 2.3 mg/dL Normal 1.7-2.3 [facility] Comment on above: Order Comment: Sana zuñiga Type: BLOOD SPECIMEN Ordering Facility: [facility] Address: [address] [place] [address] Performed By: #### 2 4321-2, 83575-5, 2777-1 #### [facility] CLIA [id number] [address] [place], [place] [address] [address] [place] Phosphate SerPl-mCncon 11-05 Phosphate [Mass/Vol] 4.1 mg/dL Normal 2.7-4.8 [facility] Comment on above: Order Comment: Sana zuñiga Type: BLOOD SPECIMEN Ordering Facility: [facility] Address: [address] [place] [address] Performed By: #### 2 4321-2, 37397-6, 2777-1 #### [facility] CLIA [id number] [address] [place], [place] [address] [place] THERAPY NTon 11-06-2023 THERAPY NT HNO ID: [id number] Author: CHANTELL BELLA [employer] Service: Speech/Swallow Author Type: Speech Language Pathologist Type: Therapy (PT/OT/Speech/Resp) Filed: 11/06/2023 10:28 Note Text: [facility] Speech Pathology - [facility] Bedside Swallow Evaluation SERVICE DATE: 11/06/2023 ROOM: [place] [address] IMPRESSIONS: Limited bedside swallowing evaluation as patient [...] assessment. PLAN: Page with concerns/questions. Chantell Bella [employer] BU[employer]ER Pager # [phone] BRIEF DIAGNOSIS AND HISTORY per General Surgery [...] discussed with: MIRIAM adkins SIGNATURE: Chantell Bella [employer] BU[employer]ER PATIENT NAME: Johnny Devine DATE: November 06, 2023 TIME: 10:12 AM PAGER: [phone] Normal [facility] Basic metabolic 2000 panelon 11-05-2023 Anion gap [Moles/Vol] 7 mmol/L Low - [facility] Comment on above: Order Comment: Speci men Type: BLOOD SPECIMEN Ordering Facility: [facility] Address: [address] [place] [address] Performed By: #### 5 7021-8 #### [facility] CLIA [id number] [address] [place] [address] [place] Calcium [Mass/Vol] 7.6 mg/dL Low 8.5-10.2 [facility] Comment on above: Order Comment: Speci men Type: BLOOD SPECIMEN Ordering Facility: [facility] Address: [address] [place] [address] Performed By: #### 5 7021-8 #### [facility] CLIA [id number] [address] [place] [address] [place] Chloride [Moles/Vol] 112 mmol/L High 97-105 [facility] Comment on above: Order Comment: Speci men Type: BLOOD SPECIMEN Ordering Facility: [facility] Address: [address] [place] [address] Performed By: #### 5 7021-8 #### [facility] CLIA [id number] [address] [place] [address] [place] CO2 [Moles/Vol] 23 mmol/L Normal 22-30 [facility] Comment on above: Order Comment: Speci men Type: BLOOD SPECIMEN Ordering Facility: [facility] Address: [address] [place] [address] Performed By: #### 5 7021-8 #### [facility] CLIA [id number] [address] [place] [address] [place] Creatinine [Mass/Vol] 0.64 mg/dL Low 0.73-1.22 [facility] Comment on above: Order Comment: Speci men Type: BLOOD SPECIMEN Ordering Facility: [facility] Address: [address] [place] [address] Performed By: #### 5 7021-8 #### [facility] CLIA [id number] [address] [place] [address] [place] Creatinine and Glomerular filtration rate.predicted panel (S/P/Bld) 130 mL/min/1.73m??? Normal >=60 [facility] Comment on above: Order Comment: Sana zuñiga Type: BLOOD SPECIMEN Ordering Facility: [facility] Address: [address] [place] [address] Result Comment: Lor mated Glomerular Filtration Rate [...] #### [facility] CLIA [id number] [address] [place] [address] [place] Glucose [Mass/Vol] 96 mg/dL Normal 74-99 [facility] Comment on above: Order Comment: Sana zuñiga Type: BLOOD SPECIMEN Ordering Facility: [facility] Address: [address] [place] [address] Result Comment: The [place] Diabetes Association (ADA) provides guidance for cutoff [...] Standards of Medical Care in Diabetes 2016, [place] [employer]. Diabetes Care. 2016.39(Suppl 1). Performed By: #### 5 7021-8 #### [facility] CLIA [id number] [address] [place] [address] [place] Potassium [Moles/Vol] 4.2 mmol/L Normal 3.7-5.1 [facility] Comment on above: Order Comment: Speci men Type: BLOOD SPECIMEN Ordering Facility: [facility] Address: [address] [place] [address] Performed By: #### 5 7021-8 #### [facility] CLIA [id number] [address] [place] [address] [place] Sodium [Moles/Vol] 142 mmol/L Normal 136-144 [facility] Comment on above: Order Comment: Speci men Type: BLOOD SPECIMEN Ordering Facility: [facility] Address: [address] [place] [address] Performed By: #### 5 7021-8 #### [facility] CLIA [id number] [address] [place] [address] [place] Urea nitrogen [Mass/Vol] 5 mg/dL Low 9-24 [facility] Comment on above: Order Comment: Speci men Type: BLOOD SPECIMEN Ordering Facility: [facility] Address: [address] [place] [address] Performed By: #### 5 7021-8 #### [facility] CLIA [id number] [address] [place] [address] [place] CBC panel Auto (Bld)on 11-04 Erythrocyte distribution width (RBC) [Ratio] 14.6 % Normal 11.5-15.0 [facility] Comment on above: Order Comment: Speci men Type: BLOOD SPECIMENOrdering Facility: [facility] Address: [address] [place] [address] Performed By: #### 5 8410-2 ####[facility] [id number] [place] [address] [place] Hematocrit (Bld) [Volume fraction] 30.8 % Low 39.0-51.0 [facility] Comment on above: Order Comment: Speci men Type: BLOOD SPECIMENOrdering Facility: [facility] Address: [address] [place] [address] Performed By: #### 5 8410-2 ####[facility] [id number] [place] [address] [place] Hemoglobin (Bld) [Mass/Vol] 9.7 g/dL Low 13.0-17.0 [facility] Comment on above: Order Comment: Speci men Type: BLOOD SPECIMENOrdering Facility: [facility] Address: [address] [place] [address] Performed By: #### 5 8410-2 ####[facility] [id number] [place] [address] [place] MCH (RBC) [Entitic mass] 26.5 pg Normal 26.0-34.0 [facility] Comment on above: Order Comment: Speci men Type: BLOOD SPECIMENOrdering Facility: [facility] Address: [address] [place] [address] Performed By: #### 5 8410-2 ####[facility] [id number] [place] [address] [place] MCHC (RBC) [Mass/Vol] 31.5 g/dL Normal 30.5-36.0 [facility] Comment on above: Order Comment: Speci men Type: BLOOD SPECIMENOrdering Facility: [facility] Address: [address] [place] [address] Performed By: #### 5 8410-2 ####[facility] [id number] [place] [address] [place] MCV (RBC) [Entitic vol] 84.2 fL Normal 80.0-100.0 [facility] Comment on above: Order Comment: Speci men Type: BLOOD SPECIMENOrdering Facility: [facility] Address: [address] [place] [address] Performed By: #### 5 8410-2 ####[facility] [id number] [place] [address] [place] Nucleated RBC (Bld) [#/Vol] 10*3/uL Normal <0.01 [facility] Comment on above: Order Comment: Speci men Type: BLOOD SPECIMENOrdering Facility: [facility] Address: [address] [place] [address] Performed By: #### 5 8410-2 ####[facility] [id number] [place] [address] [place] Platelet mean volume (Bld) [Entitic vol] 9.1 fL Normal 9.0-12.7 [facility] Comment on above: Order Comment: Speci men Type: BLOOD SPECIMENOrdering Facility: [facility] Address: [address] [place] [address] Performed By: #### 5 8410-2 ####[facility] [id number] [place] [address] [place] Platelets (Bld) [#/Vol] 205 10*3/uL Normal 150-400 [facility] Comment on above: Order Comment: Speci men Type: BLOOD SPECIMENOrdering Facility: [facility] Address: [address] [place] [address] Performed By: #### 5 8410-2 ####[facility] [id number] [place] [address] [place] RBC (Bld) [#/Vol] 3.66 10*6/uL Low 4.20-6.00 [facility] Comment on above: Order Comment: Speci men Type: BLOOD SPECIMENOrdering Facility: [facility] Address: [address] [place] [address] Performed By: #### 5 8410-2 ####[facility] [id number] [place] [address] [place] WBC (Bld) [#/Vol] 7.54 10*3/uL Normal 3.70-11.00 [facility] Comment on above: Order Comment: Speci men Type: BLOOD SPECIMENOrdering Facility: [facility] Address: [address] [place] [address] Performed By: #### 5 8410-2 ####[facility] [id number] [place] [address] [place] Magnesium [facility] 11-04 Magnesium [Mass/Vol] 2.0 mg/dL Normal 1.7-2.3 [facility] Comment on above: Order Comment: Speci men Type: BLOOD SPECIMEN Ordering Facility: [facility] Address: [address] [place] [address] Performed By: #### 5 7021-8 #### [facility] CLIA [id number] [address] [place] [address] [place] Phosphate SerPl-mCncon 11-04 Phosphate [Mass/Vol] 3.1 mg/dL Normal 2.7-4.8 [facility] Comment on above: Order Comment: Speci men Type: BLOOD SPECIMEN Ordering Facility: [facility] Address: [address] [place] [address] Performed By: #### 5 7021-8 #### [facility] CLIA [id number] [address] [place] [address] [place] THERAPY NTon 11-05-2023 THERAPY NT HNO ID: [id number] Author: ANA LUISA MORALES, PT Service: ? Author Type: Physical Therapist Type: Therapy (PT/OT/Speech/Resp) Filed: 11/05/2023 15:46 Note Text: Physical Therapy Evaluation Summary SERVICE DATE: 11/05/2023 SERVICE TIME: 1459 to 1532 ROOM: [place] [address] PT 6 Clicks Score: 18 DISCHARGE RECOMMENDATIONS Home Recommended Discharge Disposition Comments: Anticipate patient will continue to progress in mobility. Anticipate return to jail as long as able to provide current [...] session to obtain PLOF. [facility] jail. I with mobility. Can feed himself and bathe, but requires cueing to do so. Will communicate with yes/no head nods. Aunt reports he has OCD, and sometimes needs time to do things at his own pace. Unsure of current interests, but tends to like to put things together, laundry, [place]. SUBJECTIVE Pt non-verbal throughout session THERAPY DIAGNOSIS Reduced mobility-other, Abnormalities of gait and mobility-other TREATMENT INTERVENTIONS Evaluation, Therapeutic Activity (02891) Timed Code Treatment (minutes): 18 Skilled Treatment [...] Type: Stepping Bed To Chair Transfer Equipment: (HAT CHECKER) frequent verbal cues Gait Contact Guard Assistance [...] November 05, 2023 TIME: 3:46 PM Normal [facility] Basic metabolic 2000 panelon 11-04-2023 Anion gap [Moles/Vol] 9 mmol/L Normal - [facility] Comment on above: Order Comment: Speci men Type: BLOOD SPECIMEN Ordering Facility: [facility] Address: [address] [place] [address] Performed By: #### 2 777-1, 79889-6, #### [facility] CLIA [id number] [address] [place] [address] [place] Calcium [Mass/Vol] 7.7 mg/dL Low 8.5-10.2 [facility] Comment on above: Order Comment: Speci men Type: BLOOD SPECIMEN Ordering Facility: [facility] Address: [address] [place] [address] Performed By: #### 2 777-1, 13887-0, #### [facility] CLIA [id number] [address] [place] [address] [place] Chloride [Moles/Vol] 112 mmol/L High 97-105 [facility] Comment on above: Order Comment: Speci men Type: BLOOD SPECIMEN Ordering Facility: [facility] Address: [address] [place] [address] Performed By: #### 2 777-1, 99802-0, #### [facility] CLIA [id number] [address] [place] [address] [place] CO2 [Moles/Vol] 24 mmol/L Normal 22-30 [facility] Comment on above: Order Comment: Speci men Type: BLOOD SPECIMEN Ordering Facility: [facility] Address: [address] [place] [address] Performed By: #### 2 777-1, 41044-3, #### [facility] CLIA [id number] [address] [place] [address] [place] Creatinine [Mass/Vol] 0.70 mg/dL Low 0.73-1.22 [facility] Comment on above: Order Comment: Speci men Type: BLOOD SPECIMEN Ordering Facility: [facility] Address: [address] [place] [address] Performed By: #### 2 777-1, 46668-8, #### [facility] CLIA [id number] [address] [place] [address] [place] Creatinine and Glomerular filtration rate.predicted panel (S/P/Bld) 126 mL/min/1.73m??? Normal >=60 [facility] Comment on above: Order Comment: Speci men Type: BLOOD SPECIMEN Ordering Facility: [facility] Address: [address] [place] [address] Result Comment: Lor mated Glomerular Filtration Rate [...] #### [facility] CLIA [id number] [address] [place] [address] [place] Glucose [Mass/Vol] 79 mg/dL Normal 74-99 [facility] Comment on above: Order Comment: Sana zuñiga Type: BLOOD SPECIMEN Ordering Facility: [facility] Address: [address] [place] [address] Result Comment: The [place] [employer] (ADA) provides guidance for cutoff [...] Standards of Medical Care in Diabetes 2016, [place] [employer]. Diabetes Care. 2016.39(Suppl 1). Performed By: #### 2 777-1, , #### [facility] CLIA [id number] [address] [place] [address] [place] Potassium [Moles/Vol] 3.6 mmol/L Low 3.7-5.1 [facility] Comment on above: Order Comment: Sana zuñiga Type: BLOOD SPECIMEN Ordering Facility: [facility] Address: [address] [place] [address] Performed By: #### 2 777-1, , #### [facility] CLIA [id number] [address] [place] [address] [place] Sodium [Moles/Vol] 145 mmol/L High 136-144 [facility] Comment on above: Order Comment: Speci men Type: BLOOD SPECIMEN Ordering Facility: [facility] Address: [address] [place] [address] Performed By: #### 2 777-1, 40177-6, #### [facility] CLIA [id number] [address] [place] [address] [place] Urea nitrogen [Mass/Vol] 4 mg/dL Low 9-24 [facility] Comment on above: Order Comment: Speci men Type: BLOOD SPECIMEN Ordering Facility: [facility] Address: [address] [place] [address] Performed By: #### 2 777-1, 29531-1, #### [facility] CLIA [id number] [address] [place] [address] [place] CBC panel Auto (Bld)on 11-03 Erythrocyte distribution width (RBC) [Ratio] 14.3 % Normal 11.5-15.0 [facility] Comment on above: Order Comment: Speci men Type: BLOOD SPECIMEN Ordering Facility: [facility] Address: [address] [place] [address] Performed By: #### 2 777-1, , #### [facility] CLIA [id number] [address] [place] [address] [place] Hematocrit (Bld) [Volume fraction] 33.4 % Low 39.0-51.0 [facility] Comment on above: Order Comment: Speci men Type: BLOOD SPECIMEN Ordering Facility: [facility] Address: [address] [place] [address] Performed By: #### 2 777-1, 72500-7, #### [facility] CLIA [id number] [address] [place] [address] [place] Hemoglobin (Bld) [Mass/Vol] 10.5 g/dL Low 13.0-17.0 [facility] Comment on above: Order Comment: Speci men Type: BLOOD SPECIMEN Ordering Facility: [facility] Address: [address] [place] [address] Performed By: #### 2 777-1, 36666-5, #### [facility] CLIA [id number] [address] [place] [address] [place] MCH (RBC) [Entitic mass] 26.4 pg Normal 26.0-34.0 [facility] Comment on above: Order Comment: Speci men Type: BLOOD SPECIMEN Ordering Facility: [facility] Address: [address] [place] [address] Performed By: #### 2 777-1, 09643-3, #### [facility] CLIA [id number] [address] [place] [address] [place] MCHC (RBC) [Mass/Vol] 31.4 g/dL Normal 30.5-36.0 [facility] Comment on above: Order Comment: Speci men Type: BLOOD SPECIMEN Ordering Facility: [facility] Address: [address] [place] [address] Performed By: #### 2 777-1, 72435-0, #### [facility] CLIA [id number] [address] [place] [address] [place] MCV (RBC) [Entitic vol] 84.1 fL Normal 80.0-100.0 [facility] Comment on above: Order Comment: Speci men Type: BLOOD SPECIMEN Ordering Facility: [facility] Address: [address] [place] [address] Performed By: #### 2 777-1, 77826-9, #### [facility] CLIA [id number] [address] [place] [address] [place] Nucleated RBC (Bld) [#/Vol] 10*3/uL Normal <0.01 [facility] Comment on above: Order Comment: Speci men Type: BLOOD SPECIMEN Ordering Facility: [facility] Address: [address] [place] [address] Performed By: #### 2 777-1, 68286-1, #### [facility] CLIA [id number] [address] [place] [address] [place] Platelet mean volume (Bld) [Entitic vol] 8.9 fL Low 9.0-12.7 [facility] Comment on above: Order Comment: Speci men Type: BLOOD SPECIMEN Ordering Facility: [facility] Address: [address] [place] [address] Performed By: #### 2 777-1, 70871-2, #### [facility] CLIA [id number] [address] [place] [address] [place] Platelets (Bld) [#/Vol] 242 10*3/uL Normal 150-400 [facility] Comment on above: Order Comment: Speci men Type: BLOOD SPECIMEN Ordering Facility: [facility] Address: [address] [place] [address] Performed By: #### 2 777-1, 34682-1, #### [facility] CLIA [id number] [address] [place] [address] [place] RBC (Bld) [#/Vol] 3.97 10*6/uL Low 4.20-6.00 [facility] Comment on above: Order Comment: Speci men Type: BLOOD SPECIMEN Ordering Facility: [facility] Address: [address] [place] [address] Performed By: #### 2 777-1, 98228-0, #### [facility] CLIA [id number] [address] [place] [address] [place] WBC (Bld) [#/Vol] 9.36 10*3/uL Normal 3.70-11.00 [facility] Comment on above: Order Comment: Specdeshawn zuñiga Type: BLOOD SPECIMEN Ordering Facility: [facility] Address: [address] [place] [address] Performed By: #### 2 777-1, 22236-8, #### [facility] CLIA [id number] [address] [place] [address] [place] Magnesium SerPl-mCncon 11-03 Magnesium [Mass/Vol] 2.0 mg/dL Normal 1.7-2.3 [facility] Comment on above: Order Comment: Sana zuñiga Type: BLOOD SPECIMEN Ordering Facility: [facility] Address: [address] [place] [address] Performed By: #### 2 777-1, 00024-5, #### [facility] CLIA [id number] [address] [place] [address] [place] NUTRITIONon 11-04-2023 NUTRITION HNO ID: [id number] Author: SAURABH VAZQUEZ DTR Service: Nutrition Therapy Author Type: Fleet Manager Type: Nutrition Filed: 11/04/2023 14:35 Note Text: NUTRITION 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 Plan of Care: Follow-Up: [facility] Reassessment Nursing Admission Assessment Malnutrition Score: [...] November 04, 2023 TIME: 2:25 PM Normal [facility] Phosphate SerPl-mCncon 11-03 Phosphate [Mass/Vol] 2.6 mg/dL Low 2.7-4.8 [facility] Comment on above: Order Comment: Speci men Type: BLOOD SPECIMEN Ordering Facility: [facility] Address: [address] [place] [address] Performed By: #### 2 777-1, 36192-2, 63052-0 #### [facility] CLIA [id number] [address] [place] [address] [place] Valproate Free SerPl-mCncon 11-04-2023 Valproate Free [Mass/Vol] 11.3 ug/mL Normal 4.0-30.0 [facility] Comment on above: Order Comment: Speci men Type: BLOOD SPECIMENOrdering Facility: [facility] Address: [address] [place] [address] Result Comment: Refe rence ranges and high/low indicator flags are provided as general guidelines only. The treating physician must determine appropriate target levels/dosing based on the specific clinical situation. This test was developed and its performance characteristics determined by [facility]'s [facility] Path[facility] (-[facility]). It has not been cleared or approved by the FDA. [facility] is regulated under CLIA as qualified to perform high-complexity testing. This test is used for clinical purposes. It should not be regarded as investigational or for research. Performed By: #### 4 087-3 ####[facility] [id number] [place] [address] [place] Valproate SerPl-mCncon 11-03 Valproate [Mass/Vol] 49.2 ug/mL Low 50.0-100.0 [facility] Comment on above: Order Comment: Speci men Type: BLOOD SPECIMEN Ordering Facility: [facility] Address: [address] [place] [address] Result Comment: Refe rence ranges and high/low indicator flags are provided as general guidelines only. The treating physician must determine appropriate target levels/dosing based on the specific clinical situation. Performed By: #### 2 4321-2, 07679-9, 2777-1 #### [facility] CLIA [id number] [address] [place] [address] [place] Basic metabolic 2000 panelon 11-03-2023 Anion gap [Moles/Vol] 11 mmol/L Normal 9-18 [facility] Comment on above: Order Comment: Speci men Type: BLOOD SPECIMEN Ordering Facility: [facility] Address: [address] [place] [address] Performed By: #### 2 777-1, 87746-9, #### [facility] CLIA [id number] [address] [place] [address] [place] Calcium [Mass/Vol] 7.7 mg/dL Low 8.5-10.2 [facility] Comment on above: Order Comment: Speci men Type: BLOOD SPECIMEN Ordering Facility: [facility] Address: [address] [place] [address] Performed By: #### 2 777-1, 04509-9, #### [facility] CLIA [id number] [address] [place] [address] [place] Chloride [Moles/Vol] 112 mmol/L High 97-105 [facility] Comment on above: Order Comment: Speci men Type: BLOOD SPECIMEN Ordering Facility: [facility] Address: [address] [place] [address] Performed By: #### 2 777-1, 80253-9, #### [facility] CLIA [id number] [address] [place], [place] [address] [place] CO2 [Moles/Vol] 22 mmol/L Normal 22-30 [facility] Comment on above: Order Comment: Sana zuñiga Type: BLOOD SPECIMEN Ordering Facility: [facility] Address: [address] [place] [address] Performed By: #### 2 777-1, 71352-7, #### [facility] CLIA [id number] [address] [place] [address] [place] Creatinine [Mass/Vol] 0.68 mg/dL Low 0.73-1.22 [facility] Comment on above: Order Comment: Speci men Type: BLOOD SPECIMEN Ordering Facility: [facility] Address: [address] [place] [address] Performed By: #### 2 777-1, 86588-0, #### [facility] CLIA [id number] [address] [place] [address] [place] Creatinine and Glomerular filtration rate.predicted panel (S/P/Bld) 127 mL/min/1.73m??? Normal >=60 [facility] Comment on above: Order Comment: Sana zuñiga Type: BLOOD SPECIMEN Ordering Facility: [facility] Address: [address] [place] [address] Result Comment: Lor mated Glomerular Filtration Rate [...] actual GFR. Performed By: #### 2 777-1, 67642-6, #### [facility] CLIA [id number] [address] [place] [address] [place] Glucose [Mass/Vol] 85 mg/dL Normal 74-99 [facility] Comment on above: Order Comment: Speci men Type: BLOOD SPECIMEN Ordering Facility: [facility] Address: [address] [place], [place] [address] Result Comment: The [place] Diabetes [employer] (ADA) provides guidance for cutoff [...] Standards of Medical Care in Diabetes 2016, [place] [employer]. Diabetes Care. 2016.39(Suppl 1). Performed By: #### 2 777-1, 89467-9, #### [facility] CLIA [id number] [address] [place] [address] [place] Potassium [Moles/Vol] 3.4 mmol/L Low 3.7-5.1 [facility] Comment on above: Order Comment: Sana zuñiga Type: BLOOD SPECIMEN Ordering Facility: [facility] Address: [address] [place] [address] Performed By: #### 2 777-1, , #### [facility] CLIA [id number] [address] [place] [address] [place] Sodium [Moles/Vol] 145 mmol/L High 136-144 [facility] Comment on above: Order Comment: Sana zuñiga Type: BLOOD SPECIMEN Ordering Facility: [facility] Address: [address] [place] [address] Performed By: #### 2 777-1, , #### [facility] CLIA [id number] [address] [place] [address] [place] Urea nitrogen [Mass/Vol] 5 mg/dL Low 9-24 [facility] Comment on above: Order Comment: Speci men Type: BLOOD SPECIMEN Ordering Facility: [facility] Address: [address] [place] [address] Performed By: #### 2 777-1, 35566-0, 34234-5 #### [facility] CLIA [id number] [address] [place] [address] [place] CBC W Auto Differential pane l (Bld)on 11-03-2023 Basophils (Bld) [#/Vol] 10*3/uL Normal <0.11 [facility] Comment on above: Order Comment: Speci men Type: BLOOD SPECIMEN Ordering Facility: [facility] Address: [address] [place] [address] Performed By: #### 5 7021-8 #### [facility] CLIA [id number] [address] [place] [address] [place] Basophils/100 WBC (Bld) 0.3 % Normal [facility] Comment on above: Order Comment: Speci men Type: BLOOD SPECIMEN Ordering Facility: [facility] Address: [address] [place] [address] Performed By: #### 5 7021-8 #### [facility] CLIA [id number] [address] [place] [address] [place] Differential cell count method Nom (Bld) Auto Normal [facility] Comment on above: Order Comment: Speci men Type: BLOOD SPECIMEN Ordering Facility: [facility] Address: [address] [place] [address] Performed By: #### 5 7021-8 #### [facility] CLIA [id number] [address] [place] [address] [place] Eosinophils (Bld) [#/Vol] 0.25 10*3/uL Normal <0.46 [facility] Comment on above: Order Comment: Speci men Type: BLOOD SPECIMEN Ordering Facility: [facility] Address: [address] [place] [address] Performed By: #### 5 7021-8 #### [facility] CLIA [id number] [address] [place] [address] [place] Eosinophils/100 WBC (Bld) 3.1 % Normal [facility] Comment on above: Order Comment: Speci men Type: BLOOD SPECIMEN Ordering Facility: [facility] Address: [address] [place] [address] Performed By: #### 5 7021-8 #### [facility] CLIA [id number] [address] [place] [address] [place] Erythrocyte distribution width (RBC) [Ratio] 13.7 % Normal 11.5-15.0 [facility] Comment on above: Order Comment: Speci men Type: BLOOD SPECIMEN Ordering Facility: [facility] Address: [address] [place] [address] Performed By: #### 5 7021-8 #### [facility] CLIA [id number] [address] [place] [address] [place] Hematocrit (Bld) [Volume fraction] 29.9 % Low 39.0-51.0 [facility] Comment on above: Order Comment: Speci men Type: BLOOD SPECIMEN Ordering Facility: [facility] Address: [address] [place] [address] Performed By: #### 5 7021-8 #### [facility] CLIA [id number] [address] [place] [address] [place] Hemoglobin (Bld) [Mass/Vol] 9.4 g/dL Low 13.0-17.0 [facility] Comment on above: Order Comment: Speci men Type: BLOOD SPECIMEN Ordering Facility: [facility] Address: [address] [place] [address] Performed By: #### 5 7021-8 #### [facility] CLIA [id number] [address] [place] [address] [place] Immature granulocytes (Bld) [#/Vol] 0.11 10*3/uL High <0.10 [facility] Comment on above: Order Comment: Speci men Type: BLOOD SPECIMEN Ordering Facility: [facility] Address: [address] [place] [address] Performed By: #### 5 7021-8 #### [facility] CLIA [id number] [address] [place] [address] [place] Immature granulocytes/100 WBC (Bld) 1.4 % Normal [facility] Comment on above: Order Comment: Speci men Type: BLOOD SPECIMEN Ordering Facility: [facility] Address: [address] [place] [address] Performed By: #### 5 7021-8 #### [facility] CLIA [id number] [address] [place] [address] [place] Lymphocytes (Bld) [#/Vol] 2.03 10*3/uL Normal 1.00-4.00 [facility] Comment on above: Order Comment: Speci men Type: BLOOD SPECIMEN Ordering Facility: [facility] Address: [address] [place] [address] Performed By: #### 5 7021-8 #### [facility] CLIA [id number] [address] [place] [address] [place] Lymphocytes/100 WBC (Bld) 25.4 % Normal [facility] Comment on above: Order Comment: Speci men Type: BLOOD SPECIMEN Ordering Facility: [facility] Address: [address] [place] [address] Performed By: #### 5 7021-8 #### [facility] CLIA [id number] [address] [place] [address] [place] MCH (RBC) [Entitic mass] 26.5 pg Normal 26.0-34.0 [facility] Comment on above: Order Comment: Speci men Type: BLOOD SPECIMEN Ordering Facility: [facility] Address: [address] [place] [address] Performed By: #### 5 7021-8 #### [facility] CLIA [id number] [address] [place] [address] [place] MCHC (RBC) [Mass/Vol] 31.4 g/dL Normal 30.5-36.0 [facility] Comment on above: Order Comment: Speci men Type: BLOOD SPECIMEN Ordering Facility: [facility] Address: [address] [place] [address] Performed By: #### 5 7021-8 #### [facility] CLIA [id number] [address] [place] [address] [place] MCV (RBC) [Entitic vol] 84.2 fL Normal 80.0-100.0 [facility] Comment on above: Order Comment: Speci men Type: BLOOD SPECIMEN Ordering Facility: [facility] Address: [address] [place] [address] Performed By: #### 5 7021-8 #### [facility] CLIA [id number] [address] [place] [address] [place] Monocytes (Bld) [#/Vol] 0.62 10*3/uL Normal <0.87 [facility] Comment on above: Order Comment: Speci men Type: BLOOD SPECIMEN Ordering Facility: [facility] Address: [address] [place] [address] Performed By: #### 5 7021-8 #### [facility] CLIA [id number] [address] [place] [address] [place] Monocytes/100 WBC (Bld) 7.8 % Normal [facility] Comment on above: Order Comment: Speci men Type: BLOOD SPECIMEN Ordering Facility: [facility] Address: [address] [place] [address] Performed By: #### 5 7021-8 #### [facility] CLIA [id number] [address] [place] [address] [place] Neutrophils (Bld) [#/Vol] 4.96 10*3/uL Normal 1.45-7.50 [facility] Comment on above: Order Comment: Speci men Type: BLOOD SPECIMEN Ordering Facility: [facility] Address: [address] [place] [address] Performed By: #### 5 7021-8 #### [facility] CLIA [id number] [address] [place] [address] [place] Neutrophils/100 WBC (Bld) 62.0 % Normal [facility] Comment on above: Order Comment: Speci men Type: BLOOD SPECIMEN Ordering Facility: [facility] Address: [address] [place] [address] Performed By: #### 5 7021-8 #### [facility] CLIA [id number] [address] [place] [address] [place] Nucleated RBC (Bld) [#/Vol] 10*3/uL Normal <0.01 [facility] Comment on above: Order Comment: Speci men Type: BLOOD SPECIMEN Ordering Facility: [facility] Address: [address] [place] [address] Performed By: #### 5 7021-8 #### [facility] CLIA [id number] [address] [place] [address] [place] Nucleated RBC/100 WBC (Bld) [Ratio] 0.0 /100 WBC Normal [facility] Comment on above: Order Comment: Speci men Type: BLOOD SPECIMEN Ordering Facility: [facility] Address: [address] [place] [address] Performed By: #### 5 7021-8 #### [facility] CLIA [id number] [address] [place] [address] [place] Platelet mean volume (Bld) [Entitic vol] 9.3 fL Normal 9.0-12.7 [facility] Comment on above: Order Comment: Speci men Type: BLOOD SPECIMEN Ordering Facility: [facility] Address: [address] [place] [address] Performed By: #### 5 7021-8 #### [facility] CLIA [id number] [address] [place] [address] [place] Platelets (Bld) [#/Vol] 208 10*3/uL Normal 150-400 [facility] Comment on above: Order Comment: Speci men Type: BLOOD SPECIMEN Ordering Facility: [facility] Address: [address] [place] [address] Performed By: #### 5 7021-8 #### [facility] CLIA [id number] [address] [place] [address] [place] RBC (Bld) [#/Vol] 3.55 10*6/uL Low 4.20-6.00 [facility] Comment on above: Order Comment: Speci men Type: BLOOD SPECIMEN Ordering Facility: [facility] Address: [address] [place] [address] Performed By: #### 5 7021-8 #### [facility] CLIA [id number] [address] [place] [address] [place] WBC (Bld) [#/Vol] 7.99 10*3/uL Normal 3.70-11.00 [facility] Comment on above: Order Comment: Speci men Type: BLOOD SPECIMEN Ordering Facility: [facility] Address: [address] [place] [address] Performed By: #### 5 7021-8 #### [facility] CLIA [id number] [address] [place] [address] [place] CONSULTon 11-03-2023 CONSULT HNO ID: [id number] Author: CK HU MD Service: Neurology General [...] is brother, Delbert. Patient lives in a jail at baseline. Per information written on board [...] (DULCOLAX) 10 mg RECTAL DAILY phenol 1 [place] (CHLORASEPTIC) 1 [place] MUCOUS MEMBRANE (TOPICAL MOUTH AND THROAT) q 2 H PRN Or benzocaine-menthol 1 Loz[place] (CHLORASEPTIC) 1 Lozenge MUCOUS MEMBRANE (TOPICAL MOUTH AND THROAT) q 2 H PRN clomiPRAMINE 75 mg cap(s) (ANAFRANIL) 75 mg ORAL AT BEDTIME lithium carbonate 300 mg cap(s) (ESKALITH) 300 mg ORAL BID sertraline (ZOLOFT (more content not included)... Normal [facility] CT BRAIN WO IVCONon 11-03-19 CT BRAIN WO IVCON * * *Final Report* * * DATE OF EXAM: Nov 03 2023 7:42PM [facility] [place] 0504 - CT BRAIN [...] reduction techniques were required COMPARISON: None. RESULT: Valve And Regulator Repairer (topogram) images: No additional findings. Post-operative change: [...] No clear evidence of an acute abnormality. Remanufacturing Technician: PSCB Transcribe Date/Time: Nov 03 2023 7:43P Dictated by : HERMAN DOWD MD This examination was interpreted and the report reviewed and electronically signed by: HERMAN DOWD MD on Nov 03 2023 7:44PM EST [id number] Normal [facility] [place], Bld SerPl-sCncon [place] [Moles/Vol] 0.5 mmol/L Low 0.6-1.2 [facility] Comment on above: Order Comment: Specdeshawn zuñiga Type: BLOOD SPECIMEN Ordering Facility: [facility] Address: [address] [place] [address] Result Comment: Refe rence ranges and high/low indicator flags are provided as general guidelines only. The treating physician must determine appropriate target levels/dosing based on the specific clinical situation. Performed By: #### 1 4334-7, 4086-5 #### [facility] CLIA [id number] [address] [place] [address] [place] Magnesium SerPl-mCncon 11-02 Magnesium [Mass/Vol] 2.2 mg/dL Normal 1.7-2.3 [facility] Comment on above: Order Comment: Sana zuñiga Type: BLOOD SPECIMEN Ordering Facility: [facility] Address: [address] [place] [address] Performed By: #### 2 777-1, 85050-4, 81191-0 #### [facility] CLIA [id number] [address] [place] [address] [place] Phosphate SerPl-mCncon 11-02 Phosphate [Mass/Vol] 2.5 mg/dL Low 2.7-4.8 [facility] Comment on above: Order Comment: Sana zuñiga Type: BLOOD SPECIMEN Ordering Facility: [facility] Address: [address] [place] [address] Performed By: #### 2 777-1, 08434-0, 48801-4 #### [facility] CLIA [id number] [address] [place] [address] [place] THERAPY NTon 11-03-2023 THERAPY NT HNO ID: [id number] Author: ANKITA BLACKBURN PT, DPT Service: Physical Therapy Author Type: Physical Therapist Type: Therapy (PT/OT/Speech/Resp) Filed: 11/03/2023 13:48 Note Text: PHYSICAL THERAPY MISSED VISIT SERVICE DATE: 11/03/2023 SERVICE TIME: [facility] ROOM: [place] [address] Patient not seen due to Patient Not Available. Another service at bedside upon time of arrival x2 attempts. Will follow up as able/appropriate. SIGNATURE: Ankita Blackburn PT, DPT PATIENT NAME: Johnny Devine DATE: November 03, 2023 TIME: 1:48 PM Normal [facility] Valproate SerPl-mCncon 11-02 Valproate [Mass/Vol] 53.0 ug/mL Normal 50.0-100.0 [facility] Comment on above: Order Comment: Sana zuñiga Type: BLOOD SPECIMEN Ordering Facility: [facility] Address: [address] [place] [address] Result Comment: Refe rence ranges and high/low indicator flags are provided as general guidelines only. The treating physician must determine appropriate target levels/dosing based on the specific clinical situation. Performed By: #### 1 4334-7, 4086-5 #### [facility] CLIA [id number] [address] [place] [address] [place] Basic metabolic 2000 panelon 11-02-2023 Anion gap [Moles/Vol] 8 mmol/L Low 9-18 [facility] Comment on above: Order Comment: Speci men Type: BLOOD SPECIMEN Ordering Facility: [facility] Address: [address] [place], [place] [address] Performed By: #### 2 777-1, 03525-7, #### [facility] CLIA [id number] [address] [place], [place] [address] [place] Calcium [Mass/Vol] 7.7 mg/dL Low 8.5-10.2 [facility] Comment on above: Order Comment: Speci men Type: BLOOD SPECIMEN Ordering Facility: [facility] Address: [address] [place] [address] Performed By: #### 2 777-1, 20229-5, #### [facility] CLIA [id number] [address] [place] [address] [place] Chloride [Moles/Vol] 109 mmol/L High 97-105 [facility] Comment on above: Order Comment: Speci men Type: BLOOD SPECIMEN Ordering Facility: [facility] Address: [address] [place] [address] Performed By: #### 2 777-1, 80047-1, #### [facility] CLIA [id number] [address] [place] [address] [place] CO2 [Moles/Vol] 24 mmol/L Normal 22-30 [facility] Comment on above: Order Comment: Speci men Type: BLOOD SPECIMEN Ordering Facility: [facility] Address: [address] [place] [address] Performed By: #### 2 777-1, 83703-6, #### [facility] CLIA [id number] [address] [place] [address] [place] Creatinine [Mass/Vol] 0.66 mg/dL Low 0.73-1.22 [facility] Comment on above: Order Comment: Speci men Type: BLOOD SPECIMEN Ordering Facility: [facility] Address: [address] [place] [address] Performed By: #### 2 777-1, 78169-8, 75072-2 #### [facility] CLIA [id number] [address] [place] [address] [place] Creatinine and Glomerular filtration rate.predicted panel (S/P/Bld) 129 mL/min/1.73m??? Normal >=60 [facility] Comment on above: Order Comment: Sana zuñiga Type: BLOOD SPECIMEN Ordering Facility: [facility] Address: [address] [place] [address] Result Comment: Lor mated Glomerular Filtration Rate [...] actual GFR. Performed By: #### 2 777-1, 11623-6, #### [facility] CLIA [id number] [address] [place] [address] [place] Glucose [Mass/Vol] 109 mg/dL High 74-99 [facility] Comment on above: Order Comment: Sana zuñiga Type: BLOOD SPECIMEN Ordering Facility: [facility] Address: [address] [place] [address] Result Comment: The [place] Diabetes Association (ADA) provides guidance for cutoff [...] Standards of Medical Care in Diabetes 2016, [place] [employer]. Diabetes Care. 2016.39(Suppl 1). Performed By: #### 2 777-1, 12341-4, #### [facility] CLIA [id number] [address] [place] [address] [place] Potassium [Moles/Vol] 3.5 mmol/L Low 3.7-5.1 [facility] Comment on above: Order Comment: Speci men Type: BLOOD SPECIMEN Ordering Facility: [facility] Address: [address] [place] [address] Performed By: #### 2 777-1, 80739-3, #### [facility] CLIA [id number] [address] [place] [address] [place] Sodium [Moles/Vol] 141 mmol/L Normal 136-144 [facility] Comment on above: Order Comment: Speci men Type: BLOOD SPECIMEN Ordering Facility: [facility] Address: [address] [place] [address] Performed By: #### 2 777-1, 01362-4, #### [facility] CLIA [id number] [address] [place] [address] [place] Urea nitrogen [Mass/Vol] 7 mg/dL Low 9-24 [facility] Comment on above: Order Comment: Speci men Type: BLOOD SPECIMEN Ordering Facility: [facility] Address: [address] [place] [address] Performed By: #### 2 777-1, 25678-2, #### [facility] CLIA [id number] [address] [place], [place] [address] [place] CBC W Auto Differential pane l (Bld)on 11-02-2023 Basophils (Bld) [#/Vol] 0.04 10*3/uL Normal <0.11 [facility] Comment on above: Order Comment: Speci men Type: BLOOD SPECIMEN Ordering Facility: [facility] Address: [address] [place] [address] Performed By: #### 2 4321-2, , 2776-08 #### [facility] CLIA [id number] [address] [place] [address] [place] Basophils/100 WBC (Bld) 0.5 % Normal [facility] Comment on above: Order Comment: Speci men Type: BLOOD SPECIMEN Ordering Facility: [facility] Address: [address] [place] [address] Performed By: #### 2 4321-2, , 2776-08 #### [facility] CLIA [id number] [address] [place] [address] [place] Differential cell count method Nom (Bld) Auto Normal [facility] Comment on above: Order Comment: Speci men Type: BLOOD SPECIMEN Ordering Facility: [facility] Address: [address] [place] [address] Performed By: #### 2 432-2, , 2776-08 #### [facility] CLIA [id number] [address] [place] [address] [place] Eosinophils (Bld) [#/Vol] 0.24 10*3/uL Normal <0.46 [facility] Comment on above: Order Comment: Speci men Type: BLOOD SPECIMEN Ordering Facility: [facility] Address: [address] [place] [address] Performed By: #### 2 4321-2, , 2776-08 #### [facility] CLIA [id number] [address] [place] [address] [place] Eosinophils/100 WBC (Bld) 3.0 % Normal [facility] Comment on above: Order Comment: Speci men Type: BLOOD SPECIMEN Ordering Facility: [facility] Address: [address] [place] [address] Performed By: #### 2 4321-2, , 2776-08 #### [facility] CLIA [id number] [address] [place] [address] [place] Erythrocyte distribution width (RBC) [Ratio] 14.0 % Normal 11.5-15.0 [facility] Comment on above: Order Comment: Speci men Type: BLOOD SPECIMEN Ordering Facility: [facility] Address: [address] [place] [address] Performed By: #### 2 4321-2, , 2776-08 #### [facility] CLIA [id number] [address] [place] [address] [place] Hematocrit (Bld) [Volume fraction] 36.5 % Low 39.0-51.0 [facility] Comment on above: Order Comment: Speci men Type: BLOOD SPECIMEN Ordering Facility: [facility] Address: [address] [place] [address] Performed By: #### 2 4321-2, , 2776-08 #### [facility] CLIA [id number] [address] [place] [address] [place] Hemoglobin (Bld) [Mass/Vol] 11.2 g/dL Low 13.0-17.0 [facility] Comment on above: Order Comment: Speci men Type: BLOOD SPECIMEN Ordering Facility: [facility] Address: [address] [place] [address] Performed By: #### 2 4321-2, , 2776-08 #### [facility] CLIA [id number] [address] [place] [address] [place] Immature granulocytes (Bld) [#/Vol] 0.10 10*3/uL High <0.10 [facility] Comment on above: Order Comment: Speci men Type: BLOOD SPECIMEN Ordering Facility: [facility] Address: [address] [place] [address] Performed By: #### 2 4321-2, , 2776-08 #### [facility] CLIA [id number] [address] [place] [address] [place] Immature granulocytes/100 WBC (Bld) 1.3 % Normal [facility] Comment on above: Order Comment: Speci men Type: BLOOD SPECIMEN Ordering Facility: [facility] Address: [address] [place] [address] Performed By: #### 2 4321-2, , 2776-08 #### [facility] CLIA [id number] [address] [place] [address] [place] Lymphocytes (Bld) [#/Vol] 1.78 10*3/uL Normal 1.00-4.00 [facility] Comment on above: Order Comment: Speci men Type: BLOOD SPECIMEN Ordering Facility: [facility] Address: [address] [place] [address] Performed By: #### 2 432-2, , 2776-08 #### [facility] CLIA [id number] [address] [place] [address] [place] Lymphocytes/100 WBC (Bld) 22.3 % Normal [facility] Comment on above: Order Comment: Speci men Type: BLOOD SPECIMEN Ordering Facility: [facility] Address: [address] [place] [address] Performed By: #### 2 4321-2, , 2776-08 #### [facility] CLIA [id number] [address] [place] [address] [place] MCH (RBC) [Entitic mass] 26.2 pg Normal 26.0-34.0 [facility] Comment on above: Order Comment: Speci men Type: BLOOD SPECIMEN Ordering Facility: [facility] Address: [address] [place] [address] Performed By: #### 2 4321-2, , 2776-08 #### [facility] CLIA [id number] [address] [place] [address] [place] MCHC (RBC) [Mass/Vol] 30.7 g/dL Normal 30.5-36.0 [facility] Comment on above: Order Comment: Speci men Type: BLOOD SPECIMEN Ordering Facility: [facility] Address: [address] [place] [address] Performed By: #### 2 4321-2, , 2776-08 #### [facility] CLIA [id number] [address] [place] [address] [place] MCV (RBC) [Entitic vol] 85.5 fL Normal 80.0-100.0 [facility] Comment on above: Order Comment: Speci men Type: BLOOD SPECIMEN Ordering Facility: [facility] Address: [address] [place] [address] Performed By: #### 2 4321-2, , 2776-08 #### [facility] CLIA [id number] [address] [place] [address] [place] Monocytes (Bld) [#/Vol] 0.58 10*3/uL Normal <0.87 [facility] Comment on above: Order Comment: Speci men Type: BLOOD SPECIMEN Ordering Facility: [facility] Address: [address] [place] [address] Performed By: #### 2 4321-2, , 2776-08 #### [facility] CLIA [id number] [address] [place] [address] [place] Monocytes/100 WBC (Bld) 7.3 % Normal [facility] Comment on above: Order Comment: Speci men Type: BLOOD SPECIMEN Ordering Facility: [facility] Address: [address] [place] [address] Performed By: #### 2 4321-2, , 2776-08 #### [facility] CLIA [id number] [address] [place] [address] [place] Neutrophils (Bld) [#/Vol] 5.24 10*3/uL Normal 1.45-7.50 [facility] Comment on above: Order Comment: Speci men Type: BLOOD SPECIMEN Ordering Facility: [facility] Address: [address] [place] [address] Performed By: #### 2 4321-2, , 2776-08 #### [facility] CLIA [id number] [address] [place] [address] [place] Neutrophils/100 WBC (Bld) 65.6 % Normal [facility] Comment on above: Order Comment: Speci men Type: BLOOD SPECIMEN Ordering Facility: [facility] Address: [address] [place] [address] Performed By: #### 2 4321-2, , 2776-08 #### [facility] CLIA [id number] [address] [place] [address] [place] Nucleated RBC (Bld) [#/Vol] 10*3/uL Normal <0.01 [facility] Comment on above: Order Comment: Speci men Type: BLOOD SPECIMEN Ordering Facility: [facility] Address: [address] [place] [address] Performed By: #### 2 4321-2, , 2776-08 #### [facility] CLIA [id number] [address] [place] [address] [place] Nucleated RBC/100 WBC (Bld) [Ratio] 0.0 /100 WBC Normal [facility] Comment on above: Order Comment: Speci men Type: BLOOD SPECIMEN Ordering Facility: [facility] Address: [address] [place] [address] Performed By: #### 2 4321-2, , 2776-08 #### [facility] CLIA [id number] [address] [place] [address] [place] Platelet mean volume (Bld) [Entitic vol] 9.7 fL Normal 9.0-12.7 [facility] Comment on above: Order Comment: Speci men Type: BLOOD SPECIMEN Ordering Facility: [facility] Address: [address] [place] [address] Performed By: #### 2 4321-2, , 2776-08 #### [facility] CLIA [id number] [address] [place] [address] [place] Platelets (Bld) [#/Vol] 199 10*3/uL Normal 150-400 [facility] Comment on above: Order Comment: Speci men Type: BLOOD SPECIMEN Ordering Facility: [facility] Address: [address] [place] [address] Performed By: #### 2 4321-2, , 2776-08 #### [facility] CLIA [id number] [address] [place] [address] [place] RBC (Bld) [#/Vol] 4.27 10*6/uL Normal 4.20-6.00 [facility] Comment on above: Order Comment: Speci men Type: BLOOD SPECIMEN Ordering Facility: [facility] Address: [address] [place] [address] Performed By: #### 2 4321-2, , 2776-08 #### [facility] CLIA [id number] [address] [place] [address] [place] WBC (Bld) [#/Vol] 7.98 10*3/uL Normal 3.70-11.00 [facility] Comment on above: Order Comment: Speci men Type: BLOOD SPECIMEN Ordering Facility: [facility] Address: [address] [place] [address] Performed By: #### 2 4321-2, , 2776-08 #### [facility] CLIA [id number] [address] [place] [address] [place] Magnesium SerPl-mCncon 11-01 Magnesium [Mass/Vol] 2.3 mg/dL Normal 1.7-2.3 [facility] Comment on above: Order Comment: Speci men Type: BLOOD SPECIMEN Ordering Facility: [facility] Address: [address] [place] [address] Performed By: #### 2 777-1, 35376-8, 22722-9 #### [facility] CLIA [id number] [address] [place] [address] [place] Phosphate SerPl-mCncon 11-01 Phosphate [Mass/Vol] 2.6 mg/dL Low 2.7-4.8 [facility] Comment on above: Order Comment: Speci yogesh Type: BLOOD SPECIMEN Ordering Facility: [facility] Address: [address] [place] [address] Performed By: #### 2 777-1, 36674-6, 34675-5 #### [facility] CLIA [id number] [address] [place] [address] [place] XR ABDOMEN 1V [...] small bowel. Findings suggestive of improving ileus. Remanufacturing Technician: PSCShayna Transcribe Date/Time: Nov 02 2023 11:50A Dictated by : VERONICA CARTER MD This examination was interpreted and the report reviewed and electronically signed by: VERONICA CARTER MD on Nov 02 2023 11:52AM EST [id number] Normal [facility] Basic metabolic 2000 panelon 11-01-2023 Anion gap [Moles/Vol] 10 mmol/L Normal 9-18 [facility] Comment on above: Order Comment: Speci men Type: BLOOD SPECIMEN Ordering Facility: [facility] Address: [address] [place] [address] Performed By: #### 5 7021-8 #### [facility] CLIA [id number] [address] [place] [address] [place] Calcium [Mass/Vol] 7.9 mg/dL Low 8.5-10.2 [facility] Comment on above: Order Comment: Speci men Type: BLOOD SPECIMEN Ordering Facility: [facility] Address: [address] [place] [address] Performed By: #### 5 7021-8 #### [facility] CLIA [id number] [address] [place] [address] [place] Chloride [Moles/Vol] 114 mmol/L High 97-105 [facility] Comment on above: Order Comment: Speci men Type: BLOOD SPECIMEN Ordering Facility: [facility] Address: [address] [place] [address] Performed By: #### 5 7021-8 #### [facility] CLIA [id number] [address] [place] [address] [place] CO2 [Moles/Vol] 22 mmol/L Normal 22-30 [facility] Comment on above: Order Comment: Speci men Type: BLOOD SPECIMEN Ordering Facility: [facility] Address: [address] [place] [address] Performed By: #### 5 7021-8 #### [facility] CLIA [id number] [address] [place] [address] [place] Creatinine [Mass/Vol] 0.74 mg/dL Normal 0.73-1.22 [facility] Comment on above: Order Comment: Sana zuñiga Type: BLOOD SPECIMEN Ordering Facility: [facility] Address: [address] [place] [address] Performed By: #### 5 7021-8 #### [facility] CLIA [id number] [address] [place] [address] [place] Creatinine and Glomerular filtration rate.predicted panel (S/P/Bld) 124 mL/min/1.73m??? Normal >=60 [facility] Comment on above: Order Comment: Sana zuñiga Type: BLOOD SPECIMEN Ordering Facility: [facility] Address: [address] [place] [address] Result Comment: Lor mated Glomerular Filtration Rate [...] #### [facility] CLIA [id number] [address] [place] [address] [place] Glucose [Mass/Vol] 98 mg/dL Normal 74-99 [facility] Comment on above: Order Comment: Sana zuñiga Type: BLOOD SPECIMEN Ordering Facility: [facility] Address: [address] [place] [address] Result Comment: The [place] [employer] (ADA) provides guidance for cutoff [...] Standards of Medical Care in Diabetes 2016, [place] [employer]. Diabetes Care. 2016.39(Suppl 1). Performed By: #### 5 7021-8 #### [facility] CLIA [id number] [address] [place] [address] [place] Potassium [Moles/Vol] 3.9 mmol/L Normal 3.7-5.1 [facility] Comment on above: Order Comment: Speci men Type: BLOOD SPECIMEN Ordering Facility: [facility] Address: [address] [place] [address] Performed By: #### 5 7021-8 #### [facility] CLIA [id number] [address] [place] [address] [place] Sodium [Moles/Vol] 146 mmol/L High 136-144 [facility] Comment on above: Order Comment: Speci men Type: BLOOD SPECIMEN Ordering Facility: [facility] Address: [address] [place] [address] Performed By: #### 5 7021-8 #### [facility] CLIA [id number] [address] [place] [address] [place] Urea nitrogen [Mass/Vol] 9 mg/dL Normal 9-24 [facility] Comment on above: Order Comment: Speci men Type: BLOOD SPECIMEN Ordering Facility: [facility] Address: [address] [place] [address] Performed By: #### 5 7021-8 #### [facility] CLIA [id number] [address] [place] [address] [place] CBC W Auto Differential pane l (Bld)on 11-01-2023 Basophils (Bld) [#/Vol] 10*3/uL Normal <0.11 [facility] Comment on above: Order Comment: Speci men Type: BLOOD SPECIMENOrdering Facility: [facility] Address: [address] [place] [address] Performed By: #### 5 7021-8 ####[facility] [id number] [place] [address] [place] Basophils/100 WBC (Bld) 0.3 % Normal [facility] Comment on above: Order Comment: Speci men Type: BLOOD SPECIMENOrdering Facility: [facility] Address: [address] [place] [address] Performed By: #### 5 7021-8 ####[facility] [id number] [place] [address] [place] Differential cell count method Nom (Bld) Auto Normal [facility] Comment on above: Order Comment: Speci men Type: BLOOD SPECIMENOrdering Facility: [facility] Address: [address] [place] [address] Performed By: #### 5 7021-8 ####[facility] [id number] [place] [address] [place] Eosinophils (Bld) [#/Vol] 0.23 10*3/uL Normal <0.46 [facility] Comment on above: Order Comment: Speci men Type: BLOOD SPECIMENOrdering Facility: [facility] Address: [address] [place] [address] Performed By: #### 5 7021-8 ####[facility] [id number] [place] [address] [place] Eosinophils/100 WBC (Bld) 3.0 % Normal [facility] Comment on above: Order Comment: Speci men Type: BLOOD SPECIMENOrdering Facility: [facility] Address: [address] [place] [address] Performed By: #### 5 7021-8 ####[facility] [id number] [place] [address] [place] Erythrocyte distribution width (RBC) [Ratio] 14.6 % Normal 11.5-15.0 [facility] Comment on above: Order Comment: Speci men Type: BLOOD SPECIMENOrdering Facility: [facility] Address: [address] [place] [address] Performed By: #### 5 7021-8 ####[facility] [id number] [place] [address] [place] Hematocrit (Bld) [Volume fraction] 28.6 % Low 39.0-51.0 [facility] Comment on above: Order Comment: Speci men Type: BLOOD SPECIMENOrdering Facility: [facility] Address: [address] [place] [address] Performed By: #### 5 7021-8 ####[facility] [id number] [place] [address] [place] Hemoglobin (Bld) [Mass/Vol] 9.0 g/dL Low 13.0-17.0 [facility] Comment on above: Order Comment: Speci men Type: BLOOD SPECIMENOrdering Facility: [facility] Address: [address] [place] [address] Performed By: #### 5 7021-8 ####[facility]IA [id number] [place] [address] [place] Immature granulocytes (Bld) [#/Vol] 0.05 10*3/uL Normal <0.10 [facility] Comment on above: Order Comment: Speci men Type: BLOOD SPECIMENOrdering Facility: [facility] Address: [address] [place] [address] Performed By: #### 5 7021-8 ####[facility] [id number] [place] [address] [place] Immature granulocytes/100 WBC (Bld) 0.7 % Normal [facility] Comment on above: Order Comment: Speci men Type: BLOOD SPECIMENOrdering Facility: [facility] Address: [address] [place] [address] Performed By: #### 5 7021-8 ####[facility]IA [id number] [place] [address] [place] Lymphocytes (Bld) [#/Vol] 1.86 10*3/uL Normal 1.00-4.00 [facility] Comment on above: Order Comment: Speci men Type: BLOOD SPECIMENOrdering Facility: [facility] Address: [address] [place] [address] Performed By: #### 5 7021-8 ####[facility]IA [id number] [place] [address] [place] Lymphocytes/100 WBC (Bld) 24.3 % Normal [facility] Comment on above: Order Comment: Speci men Type: BLOOD SPECIMENOrdering Facility: [facility] Address: [address] [place] [address] Performed By: #### 5 7021-8 ####[facility]IA [id number] [place] [address] [place] MCH (RBC) [Entitic mass] 26.8 pg Normal 26.0-34.0 [facility] Comment on above: Order Comment: Speci men Type: BLOOD SPECIMENOrdering Facility: [facility] Address: [address] [place] [address] Performed By: #### 5 7021-8 ####[facility]IA [id number] [place] [address] [place] MCHC (RBC) [Mass/Vol] 31.5 g/dL Normal 30.5-36.0 [facility] Comment on above: Order Comment: Speci men Type: BLOOD SPECIMENOrdering Facility: [facility] Address: [address] [place] [address] Performed By: #### 5 7021-8 ####[facility]IA [id number] [place] [address] [place] MCV (RBC) [Entitic vol] 85.1 fL Normal 80.0-100.0 [facility] Comment on above: Order Comment: Speci men Type: BLOOD SPECIMENOrdering Facility: [facility] Address: [address] [place] [address] Performed By: #### 5 7021-8 ####[facility]CLIA [id number] [place] [address] [place] Monocytes (Bld) [#/Vol] 0.62 10*3/uL Normal <0.87 [facility] Comment on above: Order Comment: Speci men Type: BLOOD SPECIMENOrdering Facility: [facility] Address: [address] [place] [address] Performed By: #### 5 7021-8 ####[facility]CLIA [id number] [place] [address] [place] Monocytes/100 WBC (Bld) 8.1 % Normal [facility] Comment on above: Order Comment: Speci men Type: BLOOD SPECIMENOrdering Facility: [facility] Address: [address] [place] [address] Performed By: #### 5 7021-8 ####[facility]CLIA [id number] [place] [address] [place] Neutrophils (Bld) [#/Vol] 4.87 10*3/uL Normal 1.45-7.50 [facility] Comment on above: Order Comment: Speci men Type: BLOOD SPECIMENOrdering Facility: [facility] Address: [address] [place] [address] Performed By: #### 5 7021-8 ####[facility]CLIA [id number] [place] [address] [place] Neutrophils/100 WBC (Bld) 63.6 % Normal [facility] Comment on above: Order Comment: Speci men Type: BLOOD SPECIMENOrdering Facility: [facility] Address: [address] [place] [address] Performed By: #### 5 7021-8 ####[facility]IA [id number] [place] [address] [place] Nucleated RBC (Bld) [#/Vol] 10*3/uL Normal <0.01 [facility] Comment on above: Order Comment: Speci men Type: BLOOD SPECIMENOrdering Facility: [facility] Address: [address] [place] [address] Performed By: #### 5 7021-8 ####[facility]CLIA [id number] [place] [address] [place] Nucleated RBC/100 WBC (Bld) [Ratio] 0.0 /100 WBC Normal [facility] Comment on above: Order Comment: Speci men Type: BLOOD SPECIMENOrdering Facility: [facility] Address: [address] [place] [address] Performed By: #### 5 7021-8 ####[facility]CLIA [id number] [place] [address] [place] Platelet mean volume (Bld) [Entitic vol] 9.6 fL Normal 9.0-12.7 [facility] Comment on above: Order Comment: Speci men Type: BLOOD SPECIMENOrdering Facility: [facility] Address: [address] [place] [address] Performed By: #### 5 7021-8 ####[facility]IA [id number] [place] [address] [place] Platelets (Bld) [#/Vol] 148 10*3/uL Low 150-400 [facility] Comment on above: Order Comment: Speci men Type: BLOOD SPECIMENOrdering Facility: [facility] Address: [address] [place] [address] Performed By: #### 5 7021-8 ####[facility]CLIA [id number] [place] [address] [place] RBC (Bld) [#/Vol] 3.36 10*6/uL Low 4.20-6.00 [facility] Comment on above: Order Comment: Speci men Type: BLOOD SPECIMENOrdering Facility: [facility] Address: [address] [place] [address] Performed By: #### 5 7021-8 ####[facility]CLIA [id number] [place] [address] [place] WBC (Bld) [#/Vol] 7.65 10*3/uL Normal 3.70-11.00 [facility] Comment on above: Order Comment: Speci men Type: BLOOD SPECIMENOrdering Facility: [facility] Address: [address] [place] [address] Performed By: #### 5 7021-8 ####[facility]CLIA [id number] [place] [address] [place] Magnesium SerPl-mCncon 10-31 Magnesium [Mass/Vol] 2.4 mg/dL High 1.7-2.3 [facility] Comment on above: Order Comment: Speci men Type: BLOOD SPECIMEN Ordering Facility: [facility] Address: [address] [place] [address] Performed By: #### 5 7021-8 #### [facility] CLIA [id number] [address] [place] [address] [place] Phosphate SerPl-mCncon 10-31 Phosphate [Mass/Vol] 2.3 mg/dL Low 2.7-4.8 [facility] Comment on above: Order Comment: Speci men Type: BLOOD SPECIMEN Ordering Facility: [facility] Address: [address] [place] [address] Performed By: #### 5 7021-8 #### [facility] CLIA [id number] [address] [place] [address] [place] Basic metabolic 2000 panelon 10-31-2023 Anion gap [Moles/Vol] 10 mmol/L Normal 9-18 [facility] Comment on above: Order Comment: Speci men Type: BLOOD SPECIMEN Ordering Facility: [facility] Address: [address] [place] [address] Performed By: #### 2 777-1, 56425-9, #### [facility] CLIA [id number] [address] [place] [address] [place] Calcium [Mass/Vol] 7.8 mg/dL Low 8.5-10.2 [facility] Comment on above: Order Comment: Speci men Type: BLOOD SPECIMEN Ordering Facility: [facility] Address: [address] [place] [address] Performed By: #### 2 777-1, 87257-3, #### [facility] CLIA [id number] [address] [place] [address] [place] Chloride [Moles/Vol] 115 mmol/L High 97-105 [facility] Comment on above: Order Comment: Speci men Type: BLOOD SPECIMEN Ordering Facility: [facility] Address: [address] [place], [place] [address] Performed By: #### 2 777-1, 43929-9, #### [facility] CLIA [id number] [address] [place] [address] [place] CO2 [Moles/Vol] 23 mmol/L Normal 22-30 [facility] Comment on above: Order Comment: Speci men Type: BLOOD SPECIMEN Ordering Facility: [facility] Address: [address] [place], [place] [address] Performed By: #### 2 777-1, 31188-6, #### [facility] CLIA [id number] [address] [place] [address] [place] Creatinine [Mass/Vol] 0.72 mg/dL Low 0.73-1.22 [facility] Comment on above: Order Comment: Speci men Type: BLOOD SPECIMEN Ordering Facility: [facility] Address: [address] [place] [address] Performed By: #### 2 777-1, 33060-7, #### [facility] CLIA [id number] [address] [place] [address] [place] Creatinine and Glomerular filtration rate.predicted panel (S/P/Bld) 125 mL/min/1.73m??? Normal >=60 [facility] Comment on above: Order Comment: Sana zuñiga Type: BLOOD SPECIMEN Ordering Facility: [facility] Address: [address] [place] [address] Result Comment: Lor mated Glomerular Filtration Rate [...] actual GFR. Performed By: #### 2 777-1, 70194-3, #### [facility] CLIA [id number] [address] [place] [address] [place] Glucose [Mass/Vol] 93 mg/dL Normal 74-99 [facility] Comment on above: Order Comment: Sana zuñiga Type: BLOOD SPECIMEN Ordering Facility: [facility] Address: [address] [place] [address] Result Comment: The [place] [employer] (ADA) provides guidance for cutoff [...] Standards of Medical Care in Diabetes 2016, [place] [employer]. Diabetes Care. 2016.39(Suppl 1). Performed By: #### 2 777-1, 58858-0, #### [facility] CLIA [id number] [address] [place] [address] [place] Potassium [Moles/Vol] 3.9 mmol/L Normal 3.7-5.1 [facility] Comment on above: Order Comment: Speci men Type: BLOOD SPECIMEN Ordering Facility: [facility] Address: [address] [place] [address] Performed By: #### 2 777-1, 16753-1, #### [facility] CLIA [id number] [address] [place] [address] [place] Sodium [Moles/Vol] 148 mmol/L High 136-144 [facility] Comment on above: Order Comment: Speci men Type: BLOOD SPECIMEN Ordering Facility: [facility] Address: [address] [place] [address] Performed By: #### 2 777-1, 60813-2, #### [facility] CLIA [id number] [address] [place] [address] [place] Urea nitrogen [Mass/Vol] 8 mg/dL Low 9-24 [facility] Comment on above: Order Comment: Speci men Type: BLOOD SPECIMEN Ordering Facility: [facility] Address: [address] [place] [address] Performed By: #### 2 777-1, 17793-3, #### [facility] CLIA [id number] [address] [place] [address] [place] CBC W Auto Differential pane l (Bld)on 10-31-2023 Basophils (Bld) [#/Vol] 10*3/uL Normal <0.11 [facility] Comment on above: Order Comment: Speci men Type: BLOOD SPECIMEN Ordering Facility: [facility] Address: [address] [place] [address] Performed By: #### 5 7021-8 #### [facility] CLIA [id number] [address] [place] [address] [place] Basophils/100 WBC (Bld) 0.2 % Normal [facility] Comment on above: Order Comment: Speci men Type: BLOOD SPECIMEN Ordering Facility: [facility] Address: [address] [place] [address] Performed By: #### 5 7021-8 #### [facility] CLIA [id number] [address] [place] [address] [place] Differential cell count method Nom (Bld) Auto Normal [facility] Comment on above: Order Comment: Speci men Type: BLOOD SPECIMEN Ordering Facility: [facility] Address: [address] [place] [address] Performed By: #### 5 7021-8 #### [facility] CLIA [id number] [address] [place] [address] [place] Eosinophils (Bld) [#/Vol] 0.18 10*3/uL Normal <0.46 [facility] Comment on above: Order Comment: Speci men Type: BLOOD SPECIMEN Ordering Facility: [facility] Address: [address] [place] [address] Performed By: #### 5 7021-8 #### [facility] CLIA [id number] [address] [place] [address] [place] Eosinophils/100 WBC (Bld) 1.9 % Normal [facility] Comment on above: Order Comment: Speci men Type: BLOOD SPECIMEN Ordering Facility: [facility] Address: [address] [place] [address] Performed By: #### 5 7021-8 #### [facility] CLIA [id number] [address] [place] [address] [place] Erythrocyte distribution width (RBC) [Ratio] 14.5 % Normal 11.5-15.0 [facility] Comment on above: Order Comment: Speci men Type: BLOOD SPECIMEN Ordering Facility: [facility] Address: [address] [place] [address] Performed By: #### 5 7021-8 #### [facility] CLIA [id number] [address] [place] [address] [place] Hematocrit (Bld) [Volume fraction] 30.2 % Low 39.0-51.0 [facility] Comment on above: Order Comment: Speci men Type: BLOOD SPECIMEN Ordering Facility: [facility] Address: [address] [place] [address] Performed By: #### 5 7021-8 #### [facility] CLIA [id number] [address] [place] [address] [place] Hemoglobin (Bld) [Mass/Vol] 9.4 g/dL Low 13.0-17.0 [facility] Comment on above: Order Comment: Speci men Type: BLOOD SPECIMEN Ordering Facility: [facility] Address: [address] [place] [address] Performed By: #### 5 7021-8 #### [facility] CLIA [id number] [address] [place] [address] [place] Immature granulocytes (Bld) [#/Vol] 0.06 10*3/uL Normal <0.10 [facility] Comment on above: Order Comment: Speci men Type: BLOOD SPECIMEN Ordering Facility: [facility] Address: [address] [place] [address] Performed By: #### 5 7021-8 #### [facility] CLIA [id number] [address] [place] [address] [place] Immature granulocytes/100 WBC (Bld) 0.6 % Normal [facility] Comment on above: Order Comment: Speci men Type: BLOOD SPECIMEN Ordering Facility: [facility] Address: [address] [place] [address] Performed By: #### 5 7021-8 #### [facility] CLIA [id number] [address] [place] [address] [place] Lymphocytes (Bld) [#/Vol] 1.61 10*3/uL Normal 1.00-4.00 [facility] Comment on above: Order Comment: Speci men Type: BLOOD SPECIMEN Ordering Facility: [facility] Address: [address] [place] [address] Performed By: #### 5 7021-8 #### [facility] CLIA [id number] [address] [place] [address] [place] Lymphocytes/100 WBC (Bld) 16.8 % Normal [facility] Comment on above: Order Comment: Speci men Type: BLOOD SPECIMEN Ordering Facility: [facility] Address: [address] [place] [address] Performed By: #### 5 7021-8 #### [facility] CLIA [id number] [address] [place] [address] [place] MCH (RBC) [Entitic mass] 26.5 pg Normal 26.0-34.0 [facility] Comment on above: Order Comment: Speci men Type: BLOOD SPECIMEN Ordering Facility: [facility] Address: [address] [place] [address] Performed By: #### 5 7021-8 #### [facility] CLIA [id number] [address] [place] [address] [place] MCHC (RBC) [Mass/Vol] 31.1 g/dL Normal 30.5-36.0 [facility] Comment on above: Order Comment: Speci men Type: BLOOD SPECIMEN Ordering Facility: [facility] Address: [address] [place] [address] Performed By: #### 5 7021-8 #### [facility] CLIA [id number] [address] [place] [address] [place] MCV (RBC) [Entitic vol] 85.1 fL Normal 80.0-100.0 [facility] Comment on above: Order Comment: Speci men Type: BLOOD SPECIMEN Ordering Facility: [facility] Address: [address] [place] [address] Performed By: #### 5 7021-8 #### [facility] CLIA [id number] [address] [place] [address] [place] Monocytes (Bld) [#/Vol] 0.88 10*3/uL High <0.87 [facility] Comment on above: Order Comment: Speci men Type: BLOOD SPECIMEN Ordering Facility: [facility] Address: [address] [place] [address] Performed By: #### 5 7021-8 #### [facility] CLIA [id number] [address] [place] [address] [place] Monocytes/100 WBC (Bld) 9.2 % Normal [facility] Comment on above: Order Comment: Speci men Type: BLOOD SPECIMEN Ordering Facility: [facility] Address: [address] [place] [address] Performed By: #### 5 7021-8 #### [facility] CLIA [id number] [address] [place] [address] [place] Neutrophils (Bld) [#/Vol] 6.84 10*3/uL Normal 1.45-7.50 [facility] Comment on above: Order Comment: Speci men Type: BLOOD SPECIMEN Ordering Facility: [facility] Address: [address] [place] [address] Performed By: #### 5 7021-8 #### [facility] CLIA [id number] [address] [place] [address] [place] Neutrophils/100 WBC (Bld) 71.3 % Normal [facility] Comment on above: Order Comment: Speci men Type: BLOOD SPECIMEN Ordering Facility: [facility] Address: [address] [place] [address] Performed By: #### 5 7021-8 #### [facility] CLIA [id number] [address] [place] [address] [place] Nucleated RBC (Bld) [#/Vol] 10*3/uL Normal <0.01 [facility] Comment on above: Order Comment: Speci men Type: BLOOD SPECIMEN Ordering Facility: [facility] Address: [address] [place] [address] Performed By: #### 5 7021-8 #### [facility] CLIA [id number] [address] [place] [address] [place] Nucleated RBC/100 WBC (Bld) [Ratio] 0.0 /100 WBC Normal [facility] Comment on above: Order Comment: Speci men Type: BLOOD SPECIMEN Ordering Facility: [facility] Address: [address] [place] [address] Performed By: #### 5 7021-8 #### [facility] CLIA [id number] [address] [place] [address] [place] Platelet mean volume (Bld) [Entitic vol] 9.8 fL Normal 9.0-12.7 [facility] Comment on above: Order Comment: Speci men Type: BLOOD SPECIMEN Ordering Facility: [facility] Address: [address] [place] [address] Performed By: #### 5 7021-8 #### [facility] CLIA [id number] [address] [place] [address] [place] Platelets (Bld) [#/Vol] 144 10*3/uL Low 150-400 [facility] Comment on above: Order Comment: Speci men Type: BLOOD SPECIMEN Ordering Facility: [facility] Address: [address] [place] [address] Result Comment: Resu lts checked and verified.No clot detected. Performed By: #### 5 7021-8 #### [facility] CLIA [id number] [address] [place] [address] [place] RBC (Bld) [#/Vol] 3.55 10*6/uL Low 4.20-6.00 [facility] Comment on above: Order Comment: Speci men Type: BLOOD SPECIMEN Ordering Facility: [facility] Address: [address] [place] [address] Performed By: #### 5 7021-8 #### [facility] CLIA [id number] [address] [place] [address] [place] WBC (Bld) [#/Vol] 9.59 10*3/uL Normal 3.70-11.00 [facility] Comment on above: Order Comment: Speci men Type: BLOOD SPECIMEN Ordering Facility: [facility] Address: [address] [place] [address] Performed By: #### 5 7021-8 #### [facility] CLIA [id number] [address] [place] [address] [place] CBC panel Auto (Bld)on 10-30 Erythrocyte distribution width (RBC) [Ratio] 14.5 % Normal 11.5-15.0 [facility] Comment on above: Order Comment: Speci men Type: BLOOD SPECIMEN Ordering Facility: [facility] Address: [address] [place] [address] Performed By: #### 5 7021-8 #### [facility] CLIA [id number] [address] [place] [address] [place] Hematocrit (Bld) [Volume fraction] 28.6 % Low 39.0-51.0 [facility] Comment on above: Order Comment: Speci men Type: BLOOD SPECIMEN Ordering Facility: [facility] Address: [address] [place] [address] Performed By: #### 5 7021-8 #### [facility] CLIA [id number] [address] [place] [address] [place] Hemoglobin (Bld) [Mass/Vol] 9.1 g/dL Low 13.0-17.0 [facility] Comment on above: Order Comment: Speci men Type: BLOOD SPECIMEN Ordering Facility: [facility] Address: [address] [place] [address] Performed By: #### 5 7021-8 #### [facility] CLIA [id number] [address] [place] [address] [place] MCH (RBC) [Entitic mass] 27.1 pg Normal 26.0-34.0 [facility] Comment on above: Order Comment: Speci men Type: BLOOD SPECIMEN Ordering Facility: [facility] Address: [address] [place] [address] Performed By: #### 5 7021-8 #### [facility] CLIA [id number] [address] [place] [address] [place] MCHC (RBC) [Mass/Vol] 31.8 g/dL Normal 30.5-36.0 [facility] Comment on above: Order Comment: Speci men Type: BLOOD SPECIMEN Ordering Facility: [facility] Address: [address] [place] [address] Performed By: #### 5 7021-8 #### [facility] CLIA [id number] [address] [place] [address] [place] MCV (RBC) [Entitic vol] 85.1 fL Normal 80.0-100.0 [facility] Comment on above: Order Comment: Speci men Type: BLOOD SPECIMEN Ordering Facility: [facility] Address: [address] [place] [address] Performed By: #### 5 7021-8 #### [facility] CLIA [id number] [address] [place] [address] [place] Nucleated RBC (Bld) [#/Vol] 10*3/uL Normal <0.01 [facility] Comment on above: Order Comment: Speci men Type: BLOOD SPECIMEN Ordering Facility: [facility] Address: [address] [place] [address] Performed By: #### 5 7021-8 #### [facility] CLIA [id number] [address] [place] [address] [place] Platelet mean volume (Bld) [Entitic vol] 10.1 fL Normal 9.0-12.7 [facility] Comment on above: Order Comment: Speci men Type: BLOOD SPECIMEN Ordering Facility: [facility] Address: [address] [place] [address] Performed By: #### 5 7021-8 #### [facility] CLIA [id number] [address] [place] [address] [place] Platelets (Bld) [#/Vol] 180 10*3/uL Normal 150-400 [facility] Comment on above: Order Comment: Speci men Type: BLOOD SPECIMEN Ordering Facility: [facility] Address: [address] [place] [address] Performed By: #### 5 7021-8 #### [facility] CLIA [id number] [address] [place] [address] [place] RBC (Bld) [#/Vol] 3.36 10*6/uL Low 4.20-6.00 [facility] Comment on above: Order Comment: Speci men Type: BLOOD SPECIMEN Ordering Facility: [facility] Address: [address] [place] [address] Performed By: #### 5 7021-8 #### [facility] CLIA [id number] [address] [place] [address] [place] WBC (Bld) [#/Vol] 10.06 10*3/uL Normal 3.70-11.00 [facility] Comment on above: Order Comment: Speci men Type: BLOOD SPECIMEN Ordering Facility: [facility] Address: [address] [place] [address] Performed By: #### 5 7021-8 #### [facility] CLIA [id number] [address] [place] [address] [place] CONSULT PROGon 10-31-2023 CONSULT PROG HNO ID: [id number] Author: HEAVEN CAMACHO MD Service: Urology Author Type: Resident Type: Consult Progress Note Filed: 10/31/2023 06:56 Note Text: [facility] UROLOGY PROGRESS NOTE Name: Johnny Devine Bed: H071 019/[id number] Date: 10/31/2023 After Hours [facility] Urology Service Pager: [phone] ASSESSMENT AND PLAN Johnny Devine is a [...] affiliate, Dr. Joseph Camacho MD Urology Resident [facility] Pager [phone] For weekend or after hours issues please page the on-call urology pager [phone] 10/31/2023 6:48 AM Subjective SUBJECTIVE - See [...] Imaging All relevant recent imaging reviewed Normal [facility] Comprehensive metabolic 2000 panelon 10-31-2023 Albumin [Mass/Vol] 3.1 g/dL Low 3.9-4.9 [facility] Comment on above: Order Comment: Speci men Type: BLOOD SPECIMEN Ordering Facility: [facility] Address: [address] [place] [address] Performed By: #### 5 7021-8 #### [facility] CLIA [id number] [address] [place] [address] [place] ALP [Catalytic activity/Vol] 31 U/L Low 38-113 [facility] Comment on above: Order Comment: Speci men Type: BLOOD SPECIMEN Ordering Facility: [facility] Address: [address] [place] [address] Performed By: #### 5 7021-8 #### [facility] CLIA [id number] [address] [place] [address] [place] ALT [Catalytic activity/Vol] 6 U/L Low 10-54 [facility] Comment on above: Order Comment: Speci men Type: BLOOD SPECIMEN Ordering Facility: [facility] Address: [address] [place] [address] Performed By: #### 5 7021-8 #### [facility] CLIA [id number] [address] [place] [address] [place] Anion gap [Moles/Vol] 6 mmol/L Low 9-18 [facility] Comment on above: Order Comment: Speci men Type: BLOOD SPECIMEN Ordering Facility: [facility] Address: [address] [place] [address] Performed By: #### 5 7021-8 #### [facility] CLIA [id number] [address] [place] [address] [place] AST [Catalytic activity/Vol] 13 U/L Low 14-40 [facility] Comment on above: Order Comment: Speci men Type: BLOOD SPECIMEN Ordering Facility: [facility] Address: [address] [place] [address] Performed By: #### 5 7021-8 #### [facility] CLIA [id number] [address] [place] [address] [place] Bilirubin [Mass/Vol] mg/dL Low 0.2-1.3 [facility] Comment on above: Order Comment: Speci men Type: BLOOD SPECIMEN Ordering Facility: [facility] Address: [address] [place] [address] Performed By: #### 5 7021-8 #### [facility] CLIA [id number] [address] [place] [address] [place] Calcium [Mass/Vol] 7.4 mg/dL Low 8.5-10.2 [facility] Comment on above: Order Comment: Speci men Type: BLOOD SPECIMEN Ordering Facility: [facility] Address: [address] [place] [address] Performed By: #### 5 7021-8 #### [facility] CLIA [id number] [address] [place] [address] [place] Chloride [Moles/Vol] 115 mmol/L High 97-105 [facility] Comment on above: Order Comment: Speci men Type: BLOOD SPECIMEN Ordering Facility: [facility] Address: [address] [place] [address] Performed By: #### 5 7021-8 #### [facility] CLIA [id number] [address] [place] [address] [place] CO2 [Moles/Vol] 26 mmol/L Normal 22-30 [facility] Comment on above: Order Comment: Speci men Type: BLOOD SPECIMEN Ordering Facility: [facility] Address: [address] [place] [address] Performed By: #### 5 7021-8 #### [facility] CLIA [id number] [address] [place] [address] [place] Creatinine [Mass/Vol] 0.73 mg/dL Normal 0.73-1.22 [facility] Comment on above: Order Comment: Speci men Type: BLOOD SPECIMEN Ordering Facility: [facility] Address: [address] [place] [address] Performed By: #### 5 7021-8 #### [facility] CLIA [id number] [address] [place] [address] [place] Creatinine and Glomerular filtration rate.predicted panel (S/P/Bld) 125 mL/min/1.73m??? Normal >=60 [facility] Comment on above: Order Comment: Speci men Type: BLOOD SPECIMEN Ordering Facility: [facility] Address: [address] [place] [address] Result Comment: Lor mated Glomerular Filtration Rate [...] #### [facility] CLIA [id number] [address] [place] [address] [place] Glucose [Mass/Vol] 103 mg/dL High 74-99 [facility] Comment on above: Order Comment: Sana zuñiga Type: BLOOD SPECIMEN Ordering Facility: [facility] Address: [address] [place] [address] Result Comment: The [place] [employer] (ADA) provides guidance for cutoff [...] Standards of Medical Care in Diabetes 2016, [place] [employer]. Diabetes Care. 2016.39(Suppl 1). Performed By: #### 5 7021-8 #### [facility] CLIA [id number] [address] [place] [address] [place] Potassium [Moles/Vol] 4.0 mmol/L Normal 3.7-5.1 [facility] Comment on above: Order Comment: Sana zuñiga Type: BLOOD SPECIMEN Ordering Facility: [facility] Address: [address] [place], [place] [address] Performed By: #### 5 7021-8 #### [facility] CLIA [id number] [address] [place] [address] [place] Protein [Mass/Vol] 5.6 g/dL Low 6.3-8.0 [facility] Comment on above: Order Comment: Speci men Type: BLOOD SPECIMEN Ordering Facility: [facility] Address: [address] [place] [address] Performed By: #### 5 7021-8 #### [facility] CLIA [id number] [address] [place] [address] [place] Sodium [Moles/Vol] 147 mmol/L High 136-144 [facility] Comment on above: Order Comment: Speci men Type: BLOOD SPECIMEN Ordering Facility: [facility] Address: [address] [place] [address] Performed By: #### 5 7021-8 #### [facility] CLIA [id number] [address] [place] [address] [place] Urea nitrogen [Mass/Vol] 9 mg/dL Normal 9-24 [facility] Comment on above: Order Comment: Speci men Type: BLOOD SPECIMEN Ordering Facility: [facility] Address: [address] [place] [address] Performed By: #### 5 7021-8 #### [facility] CLIA [id number] [address] [place] [address] [place] [id number] 10-31-2023 ECG01 Ventricular Rate : 9 3 BPM Atrial Rate : 93 BPM P-R Interval : 146 ms QRS Duration : 90 ms Q-T Interval : 394 ms QTC Calculation(Bazett) : 489 ms Calculated P [place] : 7 degrees Calculated R [place] : 11 degrees Calculated T [place] : -11 degrees NORMAL SINUS RHYTHM ANTEROLATERAL T WAVE ABNORMALITY BORDERLINE PROLONGED QTC ABNORMAL ECG Confirmed by TRENT BYRD MD ([id number]) on 11/06/2023 9:42:18 AM NAME : JOHNNY DEVINE PID : [id number] : 1990 Gender : Male Race : ORD : Procedure Date : Oct 31 2023 15:33:44 Edit Date : Nov 06 2023 09:42:18 Diagnosis: NORMAL SINUS RHYTHM ANTEROLATERAL T WAVE ABNORMALITY BORDERLINE PROLONGED QTC ABNORMAL ECG Confirmed by TRENT BYRD MD ([id number]) on 11/06/2023 9:42:18 AM Test Reason : AMET Location : 74 : H71 H71-19 Overread By : TRENT BYRD MD Edited By : TRENT BYRD MD Referred By : PHOENIX CARDENAS Acquired by : MARI DUMONT [facility] EMERon 10-31-2023 [facility] HNO ID: [id number] Author: PASTORA KINGSLEY APRN.CNP Service: Critical Care [...] October 31, 2023 TIME: 4:13 PM Normal [facility] Magnesium SerPl-mCncon 10-30 Magnesium [Mass/Vol] 2.2 mg/dL Normal 1.7-2.3 [facility] Comment on above: Order Comment: Speci men Type: BLOOD SPECIMENOrdering Facility: [facility] Address: [address] [place] [address] Performed By: #### 1 9123-9, 2777-1 ####[facility] [id number] [address] [place] Magnesium [Mass/Vol] 2.1 mg/dL Normal 1.7-2.3 [facility] Comment on above: Order Comment: Speci men Type: BLOOD SPECIMEN Ordering Facility: [facility] Address: [address] [place] [address] Performed By: #### 2 777-1, 88926-8, 82326-7 #### [facility] CLIA [id number] [address] [place] [address] [place] NURSING PROGon 10-31-2023 NURSING PROG HNO ID: [id number] Author: PAZ RIGGINS, RN Service: Nursing Author Type: Registered Nurse Type: Nursing Progress Note Filed: 10/31/2023 16:32 Note Text: Called into patients room by brother who stated patient was shaking hard and having seizure like activity, on entering room patient was tachypneic and breathing hard, AMET activated. Chest xray ordered, EKG done, labs done, oxygen 89 on RA, 2L NC applied. Normal [facility] Phosphate SerPl-mCncon 10-30 Phosphate [Mass/Vol] 1.4 mg/dL Low 2.7-4.8 [facility] Comment on above: Order Comment: Speci men Type: BLOOD SPECIMENOrdering Facility: [facility] Address: [address] [place] [address] Performed By: #### 1 9123-9, 2777-1 ####[facility] [id number] [facility] [place] [address] [place] Phosphate [Mass/Vol] 2.1 mg/dL Low 2.7-4.8 [facility] Comment on above: Order Comment: Speci men Type: BLOOD SPECIMEN Ordering Facility: [facility] Address: [address] [place] [address] Performed By: #### 2 777-1, 29670-3, 43375-5 #### [facility] CLIA [id number] [address] [place] [address] [place] [address] [place] XR ABDOMEN 1V [...] abnormality. Lung bases are not well seen. Remanufacturing Technician: [facility] Transcribe Date/Time: Oct 31 2023 5:15P Dictated by : LEONEL ALONZO MD This examination was interpreted and the report reviewed and electronically signed by: LEONEL ALONZO MD on Oct 31 2023 5:22PM EST [id number] Normal [facility] XR CHEST 1V FRONTAL PORTon 0 [...] cardiomediastinal silhouette. Other: . IMPRESSION: See result. Remanufacturing Technician: [facility] Transcribe Date/Time: Oct 31 2023 4:14P Dictated by : SHEA WORTHY MD This examination was interpreted and the report reviewed and electronically signed by: SHEA WORTHY MD on Oct 31 2023 4:15PM EST [id number] Normal [facility] ANES POSTPROC EVALon 024 ANES POSTPROC EVAL HNO ID: [id number] Author: JEREMIE JOAQUIN MD Service: ? Author Type: Anesthesiologist Type: Anesthesia Postprocedure Evaluation Filed: 10/30/2023 11:55 Note Text: POST ANESTHESIA EVALUATION NOTE : 1990 Procedure Summary Date: 10/30/23 Room / Location: [place] [address] [facility] Anesthesia Start: 731 Anesthesia [...] October 30, 2023 TIME: 11:46 AM CSN: [id number] Normal [facility] ANES PRE-OPon 10-30-2023 ANES PRE-OP HNO ID: [id number] Author: JEREMIE JOAQUIN MD Service: ? Author Type: Anesthesiologist Type: Anesthesia Preprocedure Evaluation Filed: 10/30/2023 08:16 Note Text: ANESTHESIOLOGY DAY OF SURGERY NOTE : 1990 Procedure Information Date/Time: 10/30/23 0730 Procedure: DORSAL SLIT FORESKIN EXCEPT (Penis) Location: [place] [address] [facility] Surgeons: Rafael Giraldo MD [...] and consent discussed: yes. Patient / Responsible [employer] agrees to proceed: yes Patient / [...] mL MUCOUS MEMBRANE ONCE - phenol 1 [place] (CHLORASEPTIC) 1 [place] MUCOUS MEMBRANE (TOPICAL MOUTH AND THROAT) q [...] INTRAVENOUS DAILY (6 AM) - phenol 1 [place] (CHLORASEPTIC) 1 [place] MUCOUS MEMBRANE (TOPICAL MOUTH AND THROAT) q [...] MORNING F (more content not included)... Normal [facility] Basic metabolic 2000 panelon 10-30-2023 Anion gap [Moles/Vol] 12 mmol/L Normal 9-18 [facility] Comment on above: Order Comment: Speci men Type: BLOOD SPECIMEN Ordering Facility: [facility] Address: [address] [place] [address] Performed By: #### 2 4321-2, , 2776-08 #### [facility] CLIA [id number] [address] [place] [address] [place] Calcium [Mass/Vol] 7.4 mg/dL Low 8.5-10.2 [facility] Comment on above: Order Comment: Speci men Type: BLOOD SPECIMEN Ordering Facility: [facility] Address: [address] [place] [address] Performed By: #### 2 4321-2, , 2776-08 #### [facility] CLIA [id number] [address] [place] [address] [place] Chloride [Moles/Vol] 113 mmol/L High 97-105 [facility] Comment on above: Order Comment: Speci men Type: BLOOD SPECIMEN Ordering Facility: [facility] Address: [address] [place] [address] Performed By: #### 2 4321-2, , 2776-08 #### [facility] CLIA [id number] [address] [place] [address] [place] CO2 [Moles/Vol] 24 mmol/L Normal 22-30 [facility] Comment on above: Order Comment: Speci men Type: BLOOD SPECIMEN Ordering Facility: [facility] Address: [address] [place] [address] Performed By: #### 2 4321-2, , 2776-08 #### [facility] CLIA [id number] [address] [place] [address] [place] Creatinine [Mass/Vol] 0.69 mg/dL Low 0.73-1.22 [facility] Comment on above: Order Comment: Speci men Type: BLOOD SPECIMEN Ordering Facility: [facility] Address: [address] [place] [address] Performed By: #### 2 4321-2, , 2776-08 #### [facility] CLIA [id number] [address] [place] [address] [place] Creatinine and Glomerular filtration rate.predicted panel (S/P/Bld) 127 mL/min/1.73m??? Normal >=60 [facility] Comment on above: Order Comment: Speci men Type: BLOOD SPECIMEN Ordering Facility: [facility] Address: [address] [place] [address] Result Comment: Lor mated Glomerular Filtration Rate [...] actual GFR. Performed By: #### 2 4321-2, 50574-22776-08 #### [facility] CLIA [id number] [address] [place] [address] [place] Glucose [Mass/Vol] 98 mg/dL Normal 74-99 [facility] Comment on above: Order Comment: Sana zuñiga Type: BLOOD SPECIMEN Ordering Facility: [facility] Address: [address] [place] [address] Result Comment: The [place] Diabetes Association (ADA) provides guidance for cutoff [...] Standards of Medical Care in Diabetes 2016, [place] [employer]. Diabetes Care. 2016.39(Suppl 1). Performed By: #### 2 4321-2, , 2776-08 #### [facility] CLIA [id number] [address] [place] [address] [place] Potassium [Moles/Vol] 3.6 mmol/L Low 3.7-5.1 [facility] Comment on above: Order Comment: Sana zuñiga Type: BLOOD SPECIMEN Ordering Facility: [facility] Address: [address] [place] [address] Performed By: #### 2 4321-2, , 2776-08 #### [facility] CLIA [id number] [address] [place] [address] [place] Sodium [Moles/Vol] 149 mmol/L High 136-144 [facility] Comment on above: Order Comment: Sana zuñiga Type: BLOOD SPECIMEN Ordering Facility: [facility] Address: [address] [place] [address] Performed By: #### 2 4321-2, 88322-9, 2777- #### [facility] CLIA [id number] [address] [place] [address] [place] Urea nitrogen [Mass/Vol] 9 mg/dL Normal 9-24 [facility] Comment on above: Order Comment: Speci men Type: BLOOD SPECIMEN Ordering Facility: [facility] Address: [address] [place] [address] Performed By: #### 2 4321-2, 77545-7, 277- #### [facility] CLIA [id number] [address] [place] [address] [place] CBC W Auto Differential pane l (Bld)on 10-30-2023 Basophils (Bld) [#/Vol] 0.03 10*3/uL Normal <0.11 [facility] Comment on above: Order Comment: Speci men Type: BLOOD SPECIMEN Ordering Facility: [facility] Address: [address] [place] [address] Performed By: #### 5 7021-8 #### [facility] CLIA [id number] [address] [place] [address] [place] Basophils/100 WBC (Bld) 0.3 % Normal [facility] Comment on above: Order Comment: Speci men Type: BLOOD SPECIMEN Ordering Facility: [facility] Address: [address] [place] [address] Performed By: #### 5 7021-8 #### [facility] CLIA [id number] [address] [place] [address] [place] Differential cell count method Nom (Bld) Auto Normal [facility] Comment on above: Order Comment: Speci men Type: BLOOD SPECIMEN Ordering Facility: [facility] Address: [address] [place] [address] Performed By: #### 5 7021-8 #### [facility] CLIA [id number] [address] [place], [place] [address] [place] Eosinophils (Bld) [#/Vol] 0.07 10*3/uL Normal <0.46 [facility] Comment on above: Order Comment: Speci men Type: BLOOD SPECIMEN Ordering Facility: [facility] Address: [address] [place] [address] Performed By: #### 5 7021-8 #### [facility] CLIA [id number] [address] [place] [address] [place] Eosinophils/100 WBC (Bld) 0.6 % Normal [facility] Comment on above: Order Comment: Speci men Type: BLOOD SPECIMEN Ordering Facility: [facility] Address: [address] [place] [address] Performed By: #### 5 7021-8 #### [facility] CLIA [id number] [address] [place] [address] [place] Erythrocyte distribution width (RBC) [Ratio] 14.5 % Normal 11.5-15.0 [facility] Comment on above: Order Comment: Speci men Type: BLOOD SPECIMEN Ordering Facility: [facility] Address: [address] [place] [address] Performed By: #### 5 7021-8 #### [facility] CLIA [id number] [address] [place] [address] [place] Hematocrit (Bld) [Volume fraction] 31.1 % Low 39.0-51.0 [facility] Comment on above: Order Comment: Speci men Type: BLOOD SPECIMEN Ordering Facility: [facility] Address: [address] [place] [address] Performed By: #### 5 7021-8 #### [facility] CLIA [id number] [address] [place] [address] [place] Hemoglobin (Bld) [Mass/Vol] 9.8 g/dL Low 13.0-17.0 [facility] Comment on above: Order Comment: Speci men Type: BLOOD SPECIMEN Ordering Facility: [facility] Address: [address] [place] [address] Performed By: #### 5 7021-8 #### [facility] CLIA [id number] [address] [place] [address] [place] Immature granulocytes (Bld) [#/Vol] 0.06 10*3/uL Normal <0.10 [facility] Comment on above: Order Comment: Speci men Type: BLOOD SPECIMEN Ordering Facility: [facility] Address: [address] [place] [address] Performed By: #### 5 7021-8 #### [facility] CLIA [id number] [address] [place] [address] [place] Immature granulocytes/100 WBC (Bld) 0.5 % Normal [facility] Comment on above: Order Comment: Speci men Type: BLOOD SPECIMEN Ordering Facility: [facility] Address: [address] [place] [address] Performed By: #### 5 7021-8 #### [facility] CLIA [id number] [address] [place] [address] [place] Lymphocytes (Bld) [#/Vol] 1.41 10*3/uL Normal 1.00-4.00 [facility] Comment on above: Order Comment: Speci men Type: BLOOD SPECIMEN Ordering Facility: [facility] Address: [address] [place] [address] Performed By: #### 5 7021-8 #### [facility] CLIA [id number] [address] [place] [address] [place] Lymphocytes/100 WBC (Bld) 12.0 % Normal [facility] Comment on above: Order Comment: Speci men Type: BLOOD SPECIMEN Ordering Facility: [facility] Address: [address] [place] [address] Performed By: #### 5 7021-8 #### [facility] CLIA [id number] [address] [place] [address] [place] MCH (RBC) [Entitic mass] 26.6 pg Normal 26.0-34.0 [facility] Comment on above: Order Comment: Speci men Type: BLOOD SPECIMEN Ordering Facility: [facility] Address: [address] [place] [address] Performed By: #### 5 7021-8 #### [facility] CLIA [id number] [address] [place] [address] [place] MCHC (RBC) [Mass/Vol] 31.5 g/dL Normal 30.5-36.0 [facility] Comment on above: Order Comment: Speci men Type: BLOOD SPECIMEN Ordering Facility: [facility] Address: [address] [place] [address] Performed By: #### 5 7021-8 #### [facility] CLIA [id number] [address] [place] [address] [place] MCV (RBC) [Entitic vol] 84.5 fL Normal 80.0-100.0 [facility] Comment on above: Order Comment: Speci men Type: BLOOD SPECIMEN Ordering Facility: [facility] Address: [address] [place] [address] Performed By: #### 5 7021-8 #### [facility] CLIA [id number] [address] [place] [address] [place] Monocytes (Bld) [#/Vol] 1.18 10*3/uL High <0.87 [facility] Comment on above: Order Comment: Speci men Type: BLOOD SPECIMEN Ordering Facility: [facility] Address: [address] [place] [address] Performed By: #### 5 7021-8 #### [facility] CLIA [id number] [address] [place] [address] [place] Monocytes/100 WBC (Bld) 10.1 % Normal [facility] Comment on above: Order Comment: Speci men Type: BLOOD SPECIMEN Ordering Facility: [facility] Address: [address] [place] [address] Performed By: #### 5 7021-8 #### [facility] CLIA [id number] [address] [place] [address] [place] Neutrophils (Bld) [#/Vol] 8.98 10*3/uL High 1.45-7.50 [facility] Comment on above: Order Comment: Speci men Type: BLOOD SPECIMEN Ordering Facility: [facility] Address: [address] [place] [address] Performed By: #### 5 7021-8 #### [facility] CLIA [id number] [address] [place] [address] [place] Neutrophils/100 WBC (Bld) 76.5 % Normal [facility] Comment on above: Order Comment: Speci men Type: BLOOD SPECIMEN Ordering Facility: [facility] Address: [address] [place] [address] Performed By: #### 5 7021-8 #### [facility] CLIA [id number] [address] [place] [address] [place] Nucleated RBC (Bld) [#/Vol] 10*3/uL Normal <0.01 [facility] Comment on above: Order Comment: Speci men Type: BLOOD SPECIMEN Ordering Facility: [facility] Address: [address] [place] [address] Performed By: #### 5 7021-8 #### [facility] CLIA [id number] [address] [place] [address] [place] Nucleated RBC/100 WBC (Bld) [Ratio] 0.0 /100 WBC Normal [facility] Comment on above: Order Comment: Speci men Type: BLOOD SPECIMEN Ordering Facility: [facility] Address: [address] [place] [address] Performed By: #### 5 7021-8 #### [facility] CLIA [id number] [address] [place] [address] [place] Platelet mean volume (Bld) [Entitic vol] 9.7 fL Normal 9.0-12.7 [facility] Comment on above: Order Comment: Speci men Type: BLOOD SPECIMEN Ordering Facility: [facility] Address: [address] [place] [address] Performed By: #### 5 7021-8 #### [facility] CLIA [id number] [address] [place] [address] [place] Platelets (Bld) [#/Vol] 138 10*3/uL Low 150-400 [facility] Comment on above: Order Comment: Speci men Type: BLOOD SPECIMEN Ordering Facility: [facility] Address: [address] [place] [address] Performed By: #### 5 7021-8 #### [facility] CLIA [id number] [address] [place] [address] [place] RBC (Bld) [#/Vol] 3.68 10*6/uL Low 4.20-6.00 [facility] Comment on above: Order Comment: Speci men Type: BLOOD SPECIMEN Ordering Facility: [facility] Address: [address] [place] [address] Performed By: #### 5 7021-8 #### [facility] CLIA [id number] [address] [place] [address] [place] WBC (Bld) [#/Vol] 11.73 10*3/uL High 3.70-11.00 [facility] Comment on above: Order Comment: Speci men Type: BLOOD SPECIMEN Ordering Facility: [facility] Address: [address] [place] [address] Performed By: #### 5 7021-8 #### [facility] CLIA [id number] [address] [place] [address] [place] CONSULTon 10-30-2023 CONSULT HNO ID: [id number] Author: RAFAEL GIRALDO MD Service: Urology Author [...] the meatal orifice was visualized, an 8 [place] Haskins catheter was sterilely placed. However, the [...] Alan MD Resident PGY-2 Urology [facility] Pager [phone] After hours and on weekend clinical education academic coordinator pager [phone] HPI Johnny Devine is a 33 year [...] the meatal orifice was visualized, an 8 [place] Haskins catheter was sterilely placed. CYU was [...] CONGESTIONDisp: Rfl: guanFACINE (INTUNIV ER) 4 mg [id number] 4 mg by mouth onc (more content not included)... Normal [facility] Magnesium SerPl-mCncon 10-29 Magnesium [Mass/Vol] 2.0 mg/dL Normal 1.7-2.3 [facility] Comment on above: Order Comment: Speci men Type: BLOOD SPECIMENOrdering Facility: [facility] Address: [address] [place] [address] Performed By: #### 2 4321-2, 66125-5, 2777-1 ####[facility] [id number] [place] [address] [place] NURSING PROGon 10-30-2023 NURSING PROG HNO ID: [id number] Author: SHAHRIAR FARFAN RN Service: Nursing Author Type: Registered Nurse Type: Nursing Progress Note Filed: 10/30/2023 09:52 Note Text: Pt awake, opens eyes spontaneously, MEDINA to command, generalized weakness. Nonverbal at baseline. VSS. Appears comfortable, no grimacing, resting Normal [facility] NURSING PROG HNO ID: [id number] Author: SHAHRIAR FARFAN RN Service: Nursing Author [...] effective in protecting the patient's safety: Alarms, Acute Care Surgeon/Sitter, Bed in Low/Locked Position Next, a comprehensive assessment was performed and warranted placing the patient in Soft Bilateral Wrists, the least restrictive restraint needed to protect the patient's safety. Ongoing safety assessments and evaluation for earliest removal of restraints will be performed. DATE: October 30, 2023 TIME: 9:48 AM Shahriar Farfan RN Normal [facility] NURSING PROG HNO ID: [id number] Author: LEONARD FRANCIS JR, RN Service: Nursing Author Type: Registered Nurse Type: Nursing Progress Note Filed: 10/30/2023 01:11 Note Text: 2200 PM: PT does not have have a haskins catheter post op. Per report, prior to OR PT was admitted from OSH with a pediatric haskins in place due to difficulties with normal catheter. [id number] Gen surg notified. PT is clean and [...] Gen surg at bedside Leonard PINEDA. Normal [facility] OPERATIVE NOon 10-30-2023 OPERATIVE NO HNO ID: [id number] Author: HERMAN JOHNSON MD Service: Urology Author Type: Resident Type: Operative Report Filed: 10/30/2023 09:08 Note Text: Attestation signed by Oscar Ruiz MD at 10/30/2023 9:20 AM Attestation The primary proceduralist, Wale Thomas, performed the entire procedure with the assistance of Dr. Johnson. I agree with the documentation above. [facility] UROLOGY OPERATIVE REPORT Patient Name: Johnny Devine Patient Log ID: [id number] Surgery Date: 10/30/2023 Incision/Procedure Start Time: 8:03 AM Incision Close/Procedure End Time: 8:17 AM Surgeon(s) and Executive Recruiter(s): Surgeon(s) and Role: * Oscar Ruiz MD [...] I agree with the documentation above. Normal [facility] Phosphate SerPl-mCncon 10-29 Phosphate [Mass/Vol] 2.2 mg/dL Low 2.7-4.8 [facility] Comment on above: Order Comment: Speci men Type: BLOOD SPECIMENOrdering Facility: [facility] Address: [address] [address] Performed By: #### 2 4321-2, 22789-9, 2777-1 ####[facility] [id number] [address] [address] [place] XR ABDOMEN 1V [...] likely an ileus. Sigmoid distention appears improved Remanufacturing Technician: PSCB Transcribe Date/Time: Oct 30 2023 7:41A Dictated by : RYAN MORRIS MD This examination was interpreted and the report reviewed and electronically signed by: RYAN MORRIS MD on Oct 30 2023 7:43AM EST [id number] Normal [facility] ANES POSTPROC EVALon 024 ANES POSTPROC EVAL HNO ID: [id number] Author: DORIE TENA DO Service: ? Author Type: Anesthesiologist Type: Anesthesia Postprocedure Evaluation Filed: 10/29/2023 14:37 Note Text: POST ANESTHESIA EVALUATION NOTE : 1990 Procedure Summary Date: 10/29/23 Room / Location: [address] [facility] Anesthesia Start: 0948 Anesthesia [...] October 29, 2023 TIME: 2:34 PM CSN: [id number] Normal [facility] ANES PRE-OPon 10-29-2023 ANES PRE-OP HNO ID: [id number] Author: KENZIE MORE APRN.CUSTOMER SERVICE VOICE Service: ? Author Type: Nurse Aerospace Stress Engineer Type: Anesthesia Preprocedure Evaluation Filed: 10/29/2023 09:58 Note Text: ANESTHESIOLOGY DAY OF SURGERY NOTE : 1990 Procedure Information Anesthesia Start Date/Time: 10/29/23947 Procedure: EXPLORATORY LAPAROTOMY (Abdomen) Location: MAIN [facility] [place] Surgeons: Samuel Robin MD There is no [...] and consent discussed: yes. Patient / Responsible Green Party agrees to proceed: yes Patient / [...] HR - [Held on Transfer] phenol 1 [place] (CHLORASEPTIC) 1 [place] MUCOUS MEMBRANE (TOPICAL MOUTH AND THROAT) q [...] - Sennosid (more content not included)... Normal [facility] BRIEF OP NOTon 10-29-2023 BRIEF OP NOT HNO ID: [id number] Author: PA ALICEA MD Service: General Surgery Author Type: Resident Type: Brief Op Note Filed: 10/29/2023 11:47 Note Text: [facility] BRIEF OP NOTE LOG ID: [id number] SURGERY/PROCEDURE DATE: 10/29/2023 INCISION/PROCEDURE START TIME: 10:25 AM INCISION CLOSE/PROCEDURE END TIME: 11:40 AM SURGEON(S)/PROCEDURAL IST(S) AND OCCUP THER(S): Surgeon(s) and Role: * Samuel Robin MD [...] 29, 2023 TIME: 11:45 AM PAGER/CONTACT #: [facility] BRIEF OP NOT HNO ID: [id number] Author: DANTE CHERRY MD Service: General Surgery Author Type: Resident Type: Brief Op Note Filed: 10/29/2023 11:44 Note Text: BRIEF OPERATIVE / PROCEDURE NOTE LOG ID: [id number] SURGERY/PROCEDURE DATE: 10/29/2023 INCISION/PROCEDURE START TIME: 10:25 AM INCISION CLOSE/PROCEDURE END TIME: 11:40 AM SURGEON(S)/PROCEDURAL IST(S) AND OCCUP THER(S): Surgeon(s) and Role: * Samuel Robin MD [...] October 29, 2023 TIME: 11:36 AM Normal [facility] BRIEF OP NOT HNO ID: [id number] Author: PA ALICEA MD Service: General Surgery Author Type: Resident Type: Brief Op Note Filed: 10/29/2023 08:42 Note Text: Created in Error Normal [facility] Basic metabolic 2000 panelon 10-29-2023 Anion gap [Moles/Vol] 11 mmol/L Normal 9-18 [facility] Comment on above: Order Comment: Speci men Type: BLOOD SPECIMEN Ordering Facility: [facility] Address: [address] [place] [address] Performed By: #### 2 777-1, , #### [facility] CLIA [id number] [address] [place] [address] [place] Calcium [Mass/Vol] 7.4 mg/dL Low 8.5-10.2 [facility] Comment on above: Order Comment: Speci men Type: BLOOD SPECIMEN Ordering Facility: [facility] Address: [address] [place] [address] Performed By: #### 2 777-1, , #### [facility] CLIA [id number] [address] [place] [address] [place] Chloride [Moles/Vol] 112 mmol/L High 97-105 [facility] Comment on above: Order Comment: Speci men Type: BLOOD SPECIMEN Ordering Facility: [facility] Address: [address] [place] [address] Performed By: #### 2 777-1, 34080-8, #### [facility] CLIA [id number] [address] [place] [address] [place] CO2 [Moles/Vol] 21 mmol/L Low 22-30 [facility] Comment on above: Order Comment: Speci men Type: BLOOD SPECIMEN Ordering Facility: [facility] Address: [address] [place] [address] Performed By: #### 2 777-1, 46063-0, #### [facility] CLIA [id number] [address] [place] [address] [place] Creatinine [Mass/Vol] 0.69 mg/dL Low 0.73-1.22 [facility] Comment on above: Order Comment: Speci men Type: BLOOD SPECIMEN Ordering Facility: [facility] Address: [address] [place] [address] Performed By: #### 2 777-1, 89223-0, #### [facility] CLIA [id number] [address] [place] [address] [place] Creatinine and Glomerular filtration rate.predicted panel (S/P/Bld) 127 mL/min/1.73m??? Normal >=60 [facility] Comment on above: Order Comment: Speci men Type: BLOOD SPECIMEN Ordering Facility: [facility] Address: [address] [place] [address] Result Comment: Lor mated Glomerular Filtration Rate [...] actual GFR. Performed By: #### 2 777-1, 52859-7, #### [facility] CLIA [id number] [address] [place] [address] [place] Glucose [Mass/Vol] 115 mg/dL High 74-99 [facility] Comment on above: Order Comment: Speci men Type: BLOOD SPECIMEN Ordering Facility: [facility] Address: [address] [place] [address] Result Comment: The [place] Diabetes Association (ADA) provides guidance for cutoff [...] Standards of Medical Care in Diabetes 2016, [place] [employer] Association. Diabetes Care. 2016.39(Suppl 1). Performed By: #### 2 777-1, 62085-3, #### [facility] CLIA [id number] [address] [place] [address] [place] Potassium [Moles/Vol] 3.8 mmol/L Normal 3.7-5.1 [facility] Comment on above: Order Comment: Speci men Type: BLOOD SPECIMEN Ordering Facility: [facility] Address: [address] [place] [address] Performed By: #### 2 777-1, 17088-5, #### [facility] CLIA [id number] [address] [place] [address] [place] Sodium [Moles/Vol] 144 mmol/L Normal 136-144 [facility] Comment on above: Order Comment: Speci men Type: BLOOD SPECIMEN Ordering Facility: [facility] Address: [address] [place] [address] Performed By: #### 2 777-1, 53349-5, 68788-2 #### [facility] CLIA [id number] [address] [place] [address] [place] Urea nitrogen [Mass/Vol] 13 mg/dL Normal 9-24 [facility] Comment on above: Order Comment: Speci men Type: BLOOD SPECIMEN Ordering Facility: [facility] Address: [address] [place] [address] Performed By: #### 2 777-1, 68987-0, #### [facility] CLIA [id number] [address] [place] [address] [place] CBC W Auto Differential pane l (Bld)on 10-29-2023 Basophils (Bld) [#/Vol] 10*3/uL Normal <0.11 [facility] Comment on above: Order Comment: Speci men Type: BLOOD SPECIMEN Ordering Facility: [facility] Address: [address] [place] [address] Performed By: #### 5 7021-8 #### [facility] CLIA [id number] [address] [place] [address] [place] Basophils/100 WBC (Bld) 0.1 % Normal [facility] Comment on above: Order Comment: Speci men Type: BLOOD SPECIMEN Ordering Facility: [facility] Address: [address] [place] [address] Performed By: #### 5 7021-8 #### [facility] CLIA [id number] [address] [place] [address] [place] Differential cell count method Nom (Bld) Auto Normal [facility] Comment on above: Order Comment: Speci men Type: BLOOD SPECIMEN Ordering Facility: [facility] Address: [address] [place] [address] Performed By: #### 5 7021-8 #### [facility] CLIA [id number] [address] [place] [address] [place] Eosinophils (Bld) [#/Vol] 10*3/uL Normal <0.46 [facility] Comment on above: Order Comment: Speci men Type: BLOOD SPECIMEN Ordering Facility: [facility] Address: [address] [place] [address] Performed By: #### 5 7021-8 #### [facility] CLIA [id number] [address] [place] [address] [place] Eosinophils/100 WBC (Bld) 0.1 % Normal [facility] Comment on above: Order Comment: Speci men Type: BLOOD SPECIMEN Ordering Facility: [facility] Address: [address] [place] [address] Performed By: #### 5 7021-8 #### [facility] CLIA [id number] [address] [place] [address] [place] Erythrocyte distribution width (RBC) [Ratio] 14.6 % Normal 11.5-15.0 [facility] Comment on above: Order Comment: Speci men Type: BLOOD SPECIMEN Ordering Facility: [facility] Address: [address] [place] [address] Performed By: #### 5 7021-8 #### [facility] CLIA [id number] [address] [place] [address] [place] Hematocrit (Bld) [Volume fraction] 33.0 % Low 39.0-51.0 [facility] Comment on above: Order Comment: Speci men Type: BLOOD SPECIMEN Ordering Facility: [facility] Address: [address] [place] [address] Performed By: #### 5 7021-8 #### [facility] CLIA [id number] [address] [place] [address] [place] Hemoglobin (Bld) [Mass/Vol] 10.5 g/dL Low 13.0-17.0 [facility] Comment on above: Order Comment: Speci men Type: BLOOD SPECIMEN Ordering Facility: [facility] Address: [address] [place] [address] Performed By: #### 5 7021-8 #### [facility] CLIA [id number] [address] [place] [address] [place] Immature granulocytes (Bld) [#/Vol] 0.05 10*3/uL Normal <0.10 [facility] Comment on above: Order Comment: Speci men Type: BLOOD SPECIMEN Ordering Facility: [facility] Address: [address] [place] [address] Performed By: #### 5 7021-8 #### [facility] CLIA [id number] [address] [place] [address] [place] Immature granulocytes/100 WBC (Bld) 0.4 % Normal [facility] Comment on above: Order Comment: Speci men Type: BLOOD SPECIMEN Ordering Facility: [facility] Address: [address] [place] [address] Performed By: #### 5 7021-8 #### [facility] CLIA [id number] [address] [place] [address] [place] Lymphocytes (Bld) [#/Vol] 1.25 10*3/uL Normal 1.00-4.00 [facility] Comment on above: Order Comment: Speci men Type: BLOOD SPECIMEN Ordering Facility: [facility] Address: [address] [place] [address] Performed By: #### 5 7021-8 #### [facility] CLIA [id number] [address] [place] [address] [place] Lymphocytes/100 WBC (Bld) 8.9 % Normal [facility] Comment on above: Order Comment: Speci men Type: BLOOD SPECIMEN Ordering Facility: [facility] Address: [address] [place] [address] Performed By: #### 5 7021-8 #### [facility] CLIA [id number] [address] [place] [address] [place] MCH (RBC) [Entitic mass] 26.9 pg Normal 26.0-34.0 [facility] Comment on above: Order Comment: Speci men Type: BLOOD SPECIMEN Ordering Facility: [facility] Address: [address] [place] [address] Performed By: #### 5 7021-8 #### [facility] [facility] CLIA [id number] [address] [place] [address] [place] MCHC (RBC) [Mass/Vol] 31.8 g/dL Normal 30.5-36.0 [facility] Comment on above: Order Comment: Speci men Type: BLOOD SPECIMEN Ordering Facility: [facility] Address: [address] [place] [address] Performed By: #### 5 7021-8 #### [facility] CLIA [id number] [address] [place] [address] [place] MCV (RBC) [Entitic vol] 84.6 fL Normal 80.0-100.0 [facility] Comment on above: Order Comment: Speci men Type: BLOOD SPECIMEN Ordering Facility: [facility] Address: [address] [place] [address] Performed By: #### 5 7021-8 #### [facility] CLIA [id number] [address] [place] [address] [place] Monocytes (Bld) [#/Vol] 1.50 10*3/uL High <0.87 [facility] Comment on above: Order Comment: Speci men Type: BLOOD SPECIMEN Ordering Facility: [facility] Address: [address] [place] [address] Performed By: #### 5 7021-8 #### [facility] CLIA [id number] [address] [place] [address] [place] Monocytes/100 WBC (Bld) 10.6 % Normal [facility] Comment on above: Order Comment: Speci men Type: BLOOD SPECIMEN Ordering Facility: [facility] Address: [address] [place] [address] Performed By: #### 5 7021-8 #### [facility] CLIA [id number] [address] [place] [address] [place] Neutrophils (Bld) [#/Vol] 11.26 10*3/uL High 1.45-7.50 [facility] Comment on above: Order Comment: Speci men Type: BLOOD SPECIMEN Ordering Facility: [facility] Address: [address] [place] [address] Performed By: #### 5 7021-8 #### [facility] CLIA [id number] [address] [place] [address] [place] Neutrophils/100 WBC (Bld) 79.9 % Normal [facility] Comment on above: Order Comment: Speci men Type: BLOOD SPECIMEN Ordering Facility: [facility] Address: [address] [place] [address] Performed By: #### 5 7021-8 #### [facility] CLIA [id number] [address] [place] [address] [place] Nucleated RBC (Bld) [#/Vol] 10*3/uL Normal <0.01 [facility] Comment on above: Order Comment: Speci men Type: BLOOD SPECIMEN Ordering Facility: [facility] Address: [address] [place] [address] Performed By: #### 5 7021-8 #### [facility] CLIA [id number] [address] [place] [address] [place] Nucleated RBC/100 WBC (Bld) [Ratio] 0.0 /100 WBC Normal [facility] Comment on above: Order Comment: Speci men Type: BLOOD SPECIMEN Ordering Facility: [facility] Address: [address] [place] [address] Performed By: #### 5 7021-8 #### [facility] CLIA [id number] [address] [place] [address] [place] Platelet mean volume (Bld) [Entitic vol] 9.4 fL Normal 9.0-12.7 [facility] Comment on above: Order Comment: Speci men Type: BLOOD SPECIMEN Ordering Facility: [facility] Address: [address] [place] [address] Performed By: #### 5 7021-8 #### [facility] CLIA [id number] [address] [place] [address] [place] Platelets (Bld) [#/Vol] 151 10*3/uL Normal 150-400 [facility] Comment on above: Order Comment: Speci men Type: BLOOD SPECIMEN Ordering Facility: [facility] Address: [address] [place] [address] Performed By: #### 5 7021-8 #### [facility] CLIA [id number] [address] [place] [address] [place] RBC (Bld) [#/Vol] 3.90 10*6/uL Low 4.20-6.00 [facility] Comment on above: Order Comment: Speci men Type: BLOOD SPECIMEN Ordering Facility: [facility] Address: [address] [place] [address] Performed By: #### 5 7021-8 #### [facility] CLIA [id number] [address] [place] [address] [place] WBC (Bld) [#/Vol] 14.09 10*3/uL High 3.70-11.00 [facility] Comment on above: Order Comment: Speci men Type: BLOOD SPECIMEN Ordering Facility: [facility] Address: [address] [place] [address] Performed By: #### 5 7021-8 #### [facility] CLIA [id number] [address] [place] [address] [place] CONFIRM BLOOD TYPEon 024 ABO A Normal [facility] Comment on above: Order Comment: Speci men Type: BLOOD SPECIMENOrdering Facility: [facility] Address: [address] [place] [address] Performed By: #### C ONABO ####[facility]ANKCLIA [id number] [place] [address] [place] Rh Nom (Bld) Positive Normal [facility] Comment on above: Order Comment: Speci men Type: BLOOD SPECIMENOrdering Facility: [facility] Address: [address] [place] [address] Performed By: #### C ONABO ####[facility] B[facility] BANKCLIA [id number] [place] [address] [place] Magnesium SerPl-mCncon 10-28 Magnesium [Mass/Vol] 1.8 mg/dL Normal 1.7-2.3 [facility] Comment on above: Order Comment: Speci men Type: BLOOD SPECIMEN Ordering Facility: [facility] Address: [address] [place] [address] Performed By: #### 2 777-1, 22906-2, 69627-6 #### [facility] CLIA [id number] [address] [place] [address] [place] NURSING PROGon 10-29-2023 NURSING PROG HNO ID: [id number] Author: BAILEY HUTSON RN Service: Nursing Author Type: Registered Nurse Type: Nursing Progress Note Filed: 10/29/2023 18:29 Note Text: [id number] [place] [phone] to notify of patient's current temp of 100.2 F. Will continue to monitor. Normal [facility] NURSING PROG HNO ID: [id number] Author: BAILEY HUTSON RN Service: Nursing Author Type: Registered Nurse Type: Nursing Progress Note Filed: 10/29/2023 17:35 Note Text: Nursing Progress: Topic: RESTRAINT NON-VIOLENT PATIENT NAME: Johnny Devine Patient Location: [place] [address]/[facility] Room: [place] [address] The patient demonstrates Attempting to Remove Medical [...] the patient's safety: Bed in Low/Locked Position, Acute Care Surgeon/Sitter, Diversion Activities, IV/Feeding Bag/Pump Out of Vision, [...] 2023 TIME: 5:07 PM Bailey Hutson RN [facility] NURSING PROG HNO ID: [id number] Author: BAILEY HUTSON RN Service: Nursing Author Type: Registered Nurse Type: Nursing Progress Note Filed: 10/29/2023 15:25 Note Text: 1518 [place] [phone] to request indwelling Haskins for incontinence and skin breakdown management. Will continue to monitor. 1523 Patient repeatedly attempt to remove NG tube despite the sitter at the bedside. Primary team notified with request for order for bilateral soft wrist restraint. Will continue to monitor. [facility] NURSING PROG HNO ID: [id number] Author: OLIMPIA MAGALLON RN Service: Nursing Author Type: Registered Nurse Type: Nursing Progress Note Filed: 10/29/2023 13:37 Note Text: Pt resting quietly with patient diamond setter at bedside. Several attempts to reach for NG tube, patient relaxes and moves hand away from from drain if you say hand down Per brother Johnnieion. This has been effective. Pt resting quietly, no facial grimacing, posturing, or guarding. Vss, resp rate even and non labored. Pt has returned to presurgical baseline and is being transferred back to [facility] in stable condition. Opening eyes when name is called. Brothcyrus Mandujano (guardian) updated prior to patient transfer. Normal [facility] OPERATIVE NOon 10-29-2023 OPERATIVE NO HNO ID: [id number] Author: SAMUEL ROBIN MD Service: General Surgery Author Type: Physician Type: Operative Report Filed: 10/29/2023 13:52 Note Text: OPERATIVE/PROCEDURE REPORT LOG ID: [id number] SURGERY/PROCEDURE DATE: 10/29/2023 INCISION/PROCEDURE START TIME: 10:25 AM INCISION CLOSE/PROCEDURE END TIME: 11:40 AM SURGEON(S)/PROCEDURAL IST(S) AND OCCUP THER(S): Surgeon(s) and Role: * Samuel Robin MD [...] for the entirety of the case. Normal [facility] Phosphate SerPl-mCncon 10-28 Phosphate [Mass/Vol] 2.3 mg/dL Low 2.7-4.8 [facility] Comment on above: Order Comment: Speci men Type: BLOOD SPECIMEN Ordering Facility: [facility] Address: [address] [place] [address] Performed By: #### 2 777-1, 08477-0, 98171-6 #### [facility] CLIA [id number] [address] [place] [address] [place] SEPSIS LACTATEon 10-29-2023 Lactate [Moles/Vol] 1.2 mmol/L Normal <=2.0 [facility] Comment on above: Order Comment: Speci men Type: BLOOD SPECIMENOrdering Facility: [facility] Address: [address] [place] [address] Performed By: #### S LACT ####[facility] [id number] [place] [address] [place] Order Comment: Speci men Type: BLOOD SPECIMEN Ordering Facility: [facility] Address: [address] [place] [address] Performed By: #### 2 777-1, 28188-7, #### [facility] CLIA [id number] [address] [place] [address] [place] Urinalysis complete panel (U )on 10-29-2023 Bacteria LM.HPF (Urine sed) [#/Area] Negative Normal Negative [facility] Comment on above: Order Comment: Speci men Type: BLOOD SPECIMEN Ordering Facility: [facility] Address: [address] [place] [address] Performed By: #### 2 777-1, 24624-9, #### [facility] CLIA [id number] [address] [place] [address] [place] Bilirubin Ql (U) Negative Normal Negative [facility] Comment on above: Order Comment: Speci men Type: BLOOD SPECIMEN Ordering Facility: [facility] Address: [address] [place] [address] Performed By: #### 2 777-1, 68106-1, #### [facility] CLIA [id number] [address] [place] [address] [place] Clarity (Unsp spec) Clear Normal Clear [facility] Comment on above: Order Comment: Speci men Type: BLOOD SPECIMEN Ordering Facility: [facility] Address: [address] [place] [address] Performed By: #### 2 777-1, 73002-4, #### [facility] CLIA [id number] [address] [place] [address] [place] Color (U) Yellow Normal Yellow [facility] Comment on above: Order Comment: Speci men Type: BLOOD SPECIMEN Ordering Facility: [facility] Address: [address] [place] [address] Performed By: #### 2 777-1, 52999-5, #### [facility] CLIA [id number] [address] [place] [address] [place] Epithelial cells LM.HPF (Urine sed) [#/Area] None Seen Normal [facility] Comment on above: Order Comment: Speci men Type: BLOOD SPECIMEN Ordering Facility: [facility] Address: [address] [place] [address] Performed By: #### 2 777-1, , #### [facility] CLIA [id number] [address] [place] [address] [place] Glucose Test strip (U) [Mass/Vol] Negative Normal Negative [facility] Comment on above: Order Comment: Speci men Type: BLOOD SPECIMEN Ordering Facility: [facility] Address: [address] [place] [address] Performed By: #### 2 777-1, 67618-3, #### [facility] CLIA [id number] [address] [place] [address] [place] Hemoglobin Ql (U) 2+ Abnormal Negative [facility] Comment on above: Order Comment: Speci men Type: BLOOD SPECIMEN Ordering Facility: [facility] Address: [address] [place] [address] Performed By: #### 2 777-1, 46309-3, #### [facility] CLIA [id number] [address] [place], [place] [address] [place] Hyaline casts (Urine sed) [#/Area] 0 /[LPF] Normal 0 /LPF [facility] Comment on above: Order Comment: Speci men Type: BLOOD SPECIMEN Ordering Facility: [facility] Address: [address] [place] [address] Performed By: #### 2 777-1, 43559-3, #### [facility] CLIA [id number] [address] [place] [address] [place] Ketones Ql (U) Negative Normal Negative [facility] Comment on above: Order Comment: Speci men Type: BLOOD SPECIMEN Ordering Facility: [facility] Address: [address] [place] [address] Performed By: #### 2 777-1, , #### [facility] CLIA [id number] [address] [place] [address] [place] Leukocyte esterase Test strip Ql (U) Negative Normal Negative [facility] Comment on above: Order Comment: Speci men Type: BLOOD SPECIMEN Ordering Facility: [facility] Address: [address] [place] [address] Performed By: #### 2 777-1, , #### [facility] CLIA [id number] [address] [place], [place] [address] [place] Nitrite Ql (U) Negative Normal Negative [facility] Comment on above: Order Comment: Speci men Type: BLOOD SPECIMEN Ordering Facility: [facility] Address: [address] [place] [address] Performed By: #### 2 777-1, , #### [facility] CLIA [id number] [address] [place] [address] [place] pH (U) 6.5 [pH] Normal <8.5 [facility] Comment on above: Order Comment: Speci men Type: BLOOD SPECIMEN Ordering Facility: [facility] Address: [address] [place] [address] Performed By: #### 2 777-1, 37135-6, #### [facility] CLIA [id number] [address] [place] [address] [place] Protein (U) [Mass/Vol] Trace Abnormal Negative [facility] Comment on above: Order Comment: Speci men Type: BLOOD SPECIMEN Ordering Facility: [facility] Address: [address] [place] [address] Performed By: #### 2 777-1, 77731-4, #### [facility] CLIA [id number] [address] [place] [address] [place] RBC LM.HPF (Urine sed) [#/Area] 6-10 /HPF Abnormal 0-2 /HPF [facility] Comment on above: Order Comment: Speci men Type: BLOOD SPECIMEN Ordering Facility: [facility] Address: [address] [place] [address] Performed By: #### 2 777-1, , #### [facility] CLIA [id number] [address] [place] [address] [place] Specific gravity (U) [Rel density] 1.021 Normal 1.005-1.030 [facility] Comment on above: Order Comment: Speci men Type: BLOOD SPECIMEN Ordering Facility: [facility] Address: [address] [place] [address] Performed By: #### 2 777-1, , #### [facility] CLIA [id number] [address] [place] [address] [place] Urobilinogen Ql (U) 0.2 EU/dL Normal 0.2-1.0 EU/dL [facility] Comment on above: Order Comment: Speci men Type: BLOOD SPECIMEN Ordering Facility: [facility] Address: [address] [place] [address] Performed By: #### 2 777-1, 03270-6, #### [facility] CLIA [id number] [address] [place] [address] [place] WBC LM.HPF (Urine sed) [#/Area] 0-5 /HPF Normal 0-5 /HPF [facility] Comment on above: Order Comment: Speci men Type: BLOOD SPECIMEN Ordering Facility: [facility] Address: [address] [place] [address] Performed By: #### 2 777-1, 58048-9, #### [facility] CLIA [id number] [address] [place] [address] [place] XR CHEST 1V [...] are unremarkable. Other: . IMPRESSION: See result. Remanufacturing Technician: SUSI Transcribe Date/Time: Oct 29 2023 12:20A Dictated by : SHEA WORTHY MD This examination was interpreted and the report reviewed and electronically signed by: SHEA WORTHY MD on Oct 29 2023 12:22AM EST [id number] Normal [facility] aPTT PPPon 10-29-2023 aPTT Coag (PPP) [Time] 26.3 s Normal 23.0-32.4 [facility] Comment on above: Order Comment: Speci men Type: BLOOD SPECIMEN Ordering Facility: [facility] Address: [address] [place] [address] Performed By: #### 2 777-1, 91339-2, #### [facility] CLIA [id number] [address] [place] [address] [place] Basic metabolic 2000 panelon 10-28-2023 Anion gap [Moles/Vol] 12 mmol/L Normal 9-18 [facility] Comment on above: Order Comment: Speci men Type: BLOOD SPECIMEN Ordering Facility: [facility] Address: [address] [place] [address] Performed By: #### 2 777-1, 26986-3, #### [facility] CLIA [id number] [address] [place] [address] [place] Calcium [Mass/Vol] 7.8 mg/dL Low 8.5-10.2 [facility] Comment on above: Order Comment: Speci men Type: BLOOD SPECIMEN Ordering Facility: [facility] Address: [address] [place] [address] Performed By: #### 2 777-1, 05786-4, #### [facility] CLIA [id number] [address] [place] [address] [place] Chloride [Moles/Vol] 110 mmol/L High 97-105 [facility] Comment on above: Order Comment: Speci men Type: BLOOD SPECIMEN Ordering Facility: [facility] Address: [address] [place] [address] Performed By: #### 2 777-1, 92978-4, #### [facility] CLIA [id number] [address] [place] [address] [place] CO2 [Moles/Vol] 15 mmol/L Low 22-30 [facility] Comment on above: Order Comment: Specdeshawn zuñiga Type: BLOOD SPECIMEN Ordering Facility: [facility] Address: [address] [place] [address] Performed By: #### 2 777-1, 00110-6, #### [facility] CLIA [id number] [address] [place] [address] [place] Creatinine [Mass/Vol] 0.72 mg/dL Low 0.73-1.22 [facility] Comment on above: Order Comment: Speci yogesh Type: BLOOD SPECIMEN Ordering Facility: [facility] Address: [address] [place] [address] Performed By: #### 2 777-1, 35761-5, #### [facility] CLIA [id number] [address] [place] [address] [place] Creatinine and Glomerular filtration rate.predicted panel (S/P/Bld) 125 mL/min/1.73m??? Normal >=60 [facility] Comment on above: Order Comment: Sana zuñiga Type: BLOOD SPECIMEN Ordering Facility: [facility] Address: [address] [place] [address] Result Comment: Lor mated Glomerular Filtration Rate [...] actual GFR. Performed By: #### 2 777-1, 67956-7, #### [facility] CLIA [id number] [address] [place] [address] [place] Glucose [Mass/Vol] 116 mg/dL High 74-99 [facility] Comment on above: Order Comment: Sana zuñiga Type: BLOOD SPECIMEN Ordering Facility: [facility] Address: [address] [place] [address] Result Comment: The [place] [employer] (ADA) provides guidance for cutoff [...] Standards of Medical Care in Diabetes 2016, [place] [employer]. Diabetes Care. 2016.39(Suppl 1). Performed By: #### 2 777-1, 22281-6, #### [facility] CLIA [id number] [address] [place] [address] [place] Potassium [Moles/Vol] 3.9 mmol/L Normal 3.7-5.1 [facility] Comment on above: Order Comment: Sana zuñiga Type: BLOOD SPECIMEN Ordering Facility: [facility] Address: [address] [place] [address] Performed By: #### 2 777-1, 93172-0, #### [facility] CLIA [id number] [address] [place] [address] [place] Sodium [Moles/Vol] 137 mmol/L Normal 136-144 [facility] Comment on above: Order Comment: Sana zuñiga Type: BLOOD SPECIMEN Ordering Facility: [facility] Address: [address] [place] [address] Performed By: #### 2 777-1, 48799-2, #### [facility] CLIA [id number] [address] [place] [address] [place] Urea nitrogen [Mass/Vol] 17 mg/dL Normal 9-24 [facility] Comment on above: Order Comment: Speci men Type: BLOOD SPECIMEN Ordering Facility: [facility] Address: [address] [place] [address] Performed By: #### 2 777-1, 56241-1, #### [facility] CLIA [id number] [address] [place] [address] [place] CBC W Auto Differential pane l (Bld)on 10-28-2023 Basophils (Bld) [#/Vol] 10*3/uL Normal <0.11 [facility] Comment on above: Order Comment: Speci men Type: BLOOD SPECIMEN Ordering Facility: [facility] Address: [address] [place] [address] Performed By: #### 2 777-1, 28607-7, #### [facility] CLIA [id number] [address] [place] [address] [place] Basophils/100 WBC (Bld) 0.1 % Normal [facility] Comment on above: Order Comment: Speci men Type: BLOOD SPECIMEN Ordering Facility: [facility] Address: [address] [place] [address] Performed By: #### 2 777-1, 85590-7, #### [facility] CLIA [id number] [address] [place] [address] [place] Differential cell count method Nom (Bld) Auto Normal [facility] Comment on above: Order Comment: Speci men Type: BLOOD SPECIMEN Ordering Facility: [facility] Address: [address] [place] [address] Performed By: #### 2 777-1, 93182-1, #### [facility] CLIA [id number] [address] [place] [address] [place] Eosinophils (Bld) [#/Vol] 10*3/uL Normal <0.46 [facility] Comment on above: Order Comment: Speci men Type: BLOOD SPECIMEN Ordering Facility: [facility] Address: [address] [place] [address] Performed By: #### 2 777-1, 18040-1, #### [facility] CLIA [id number] [address] [place] [address] [place] Eosinophils/100 WBC (Bld) 0.0 % Normal [facility] Comment on above: Order Comment: Speci men Type: BLOOD SPECIMEN Ordering Facility: [facility] Address: [address] [place] [address] Performed By: #### 2 777-1, 86547-5, #### [facility] CLIA [id number] [address] [place] [address] [place] Erythrocyte distribution width (RBC) [Ratio] 14.4 % Normal 11.5-15.0 [facility] Comment on above: Order Comment: Speci men Type: BLOOD SPECIMEN Ordering Facility: [facility] Address: [address] [place] [address] Performed By: #### 2 777-1, , #### [facility] CLIA [id number] [address] [place] [address] [place] Hematocrit (Bld) [Volume fraction] 38.3 % Low 39.0-51.0 [facility] Comment on above: Order Comment: Speci men Type: BLOOD SPECIMEN Ordering Facility: [facility] Address: [address] [place] [address] Performed By: #### 2 777-1, 38436-2, #### [facility] CLIA [id number] [address] [place] [address] [place] Hemoglobin (Bld) [Mass/Vol] 12.0 g/dL Low 13.0-17.0 [facility] Comment on above: Order Comment: Speci men Type: BLOOD SPECIMEN Ordering Facility: [facility] Address: [address] [place] [address] Performed By: #### 2 777-1, 90979-5, #### [facility] CLIA [id number] [address] [place] [address] [place] Immature granulocytes (Bld) [#/Vol] 0.08 10*3/uL Normal <0.10 [facility] Comment on above: Order Comment: Speci men Type: BLOOD SPECIMEN Ordering Facility: [facility] Address: [address] [place] [address] Performed By: #### 2 777-1, 72744-0, #### [facility] CLIA [id number] [address] [place] [address] [place] Immature granulocytes/100 WBC (Bld) 0.6 % Normal [facility] Comment on above: Order Comment: Speci men Type: BLOOD SPECIMEN Ordering Facility: [facility] Address: [address] [place] [address] Performed By: #### 2 777-1, 47041-0, #### [facility] CLIA [id number] [address] [place] [address] [place] Lymphocytes (Bld) [#/Vol] 1.19 10*3/uL Normal 1.00-4.00 [facility] Comment on above: Order Comment: Speci men Type: BLOOD SPECIMEN Ordering Facility: [facility] Address: [address] [place] [address] Performed By: #### 2 777-1, 37897-3, #### [facility] CLIA [id number] [address] [place] [address] [place] Lymphocytes/100 WBC (Bld) 8.2 % Normal [facility] Comment on above: Order Comment: Speci men Type: BLOOD SPECIMEN Ordering Facility: [facility] Address: [address] [place] [address] Performed By: #### 2 777-1, 12973-4, #### [facility] CLIA [id number] [address] [place] [address] [place] MCH (RBC) [Entitic mass] 26.5 pg Normal 26.0-34.0 [facility] Comment on above: Order Comment: Speci men Type: BLOOD SPECIMEN Ordering Facility: [facility] Address: [address] [place] [address] Performed By: #### 2 777-1, 48619-3, #### [facility] CLIA [id number] [address] [place] [address] [place] MCHC (RBC) [Mass/Vol] 31.3 g/dL Normal 30.5-36.0 [facility] Comment on above: Order Comment: Speci men Type: BLOOD SPECIMEN Ordering Facility: [facility] Address: [address] [place] [address] Performed By: #### 2 777-1, 07318-1, #### [facility] CLIA [id number] [address] [place] [address] [place] MCV (RBC) [Entitic vol] 84.5 fL Normal 80.0-100.0 [facility] Comment on above: Order Comment: Speci men Type: BLOOD SPECIMEN Ordering Facility: [facility] Address: [address] [place] [address] Performed By: #### 2 777-1, 09332-6, #### [facility] CLIA [id number] [address] [place] [address] [place] Monocytes (Bld) [#/Vol] 1.48 10*3/uL High <0.87 [facility] Comment on above: Order Comment: Speci men Type: BLOOD SPECIMEN Ordering Facility: [facility] Address: [address] [place] [address] Performed By: #### 2 777-1, 95455-1, #### [facility] CLIA [id number] [address] [place] [address] [place] Monocytes/100 WBC (Bld) 10.2 % Normal [facility] Comment on above: Order Comment: Speci men Type: BLOOD SPECIMEN Ordering Facility: [facility] Address: [address] [place] [address] Performed By: #### 2 777-1, 56949-9, #### [facility] CLIA [id number] [address] [place] [address] [place] Neutrophils (Bld) [#/Vol] 11.69 10*3/uL High 1.45-7.50 [facility] Comment on above: Order Comment: Speci men Type: BLOOD SPECIMEN Ordering Facility: [facility] Address: [address] [place] [address] Performed By: #### 2 777-1, 71597-4, #### [facility] CLIA [id number] [address] [place] [address] [place] Neutrophils/100 WBC (Bld) 80.9 % Normal [facility] Comment on above: Order Comment: Speci men Type: BLOOD SPECIMEN Ordering Facility: [facility] Address: [address] [place] [address] Performed By: #### 2 777-1, 47635-7, #### [facility] CLIA [id number] [address] [place] [address] [place] Nucleated RBC (Bld) [#/Vol] 10*3/uL Normal <0.01 [facility] Comment on above: Order Comment: Speci men Type: BLOOD SPECIMEN Ordering Facility: [facility] Address: [address] [place] [address] Performed By: #### 2 777-1, 06311-7, #### [facility] CLIA [id number] [address] [place] [address] [place] Nucleated RBC/100 WBC (Bld) [Ratio] 0.0 /100 WBC Normal [facility] Comment on above: Order Comment: Speci men Type: BLOOD SPECIMEN Ordering Facility: [facility] Address: [address] [place] [address] Performed By: #### 2 777-1, 78851-6, #### [facility] CLIA [id number] [address] [place] [address] [place] Platelet mean volume (Bld) [Entitic vol] 9.3 fL Normal 9.0-12.7 [facility] Comment on above: Order Comment: Speci men Type: BLOOD SPECIMEN Ordering Facility: [facility] Address: [address] [place] [address] Performed By: #### 2 777-1, 09563-9, #### [facility] CLIA [id number] [address] [place] [address] [place] Platelets (Bld) [#/Vol] 180 10*3/uL Normal 150-400 [facility] Comment on above: Order Comment: Speci men Type: BLOOD SPECIMEN Ordering Facility: [facility] Address: [address] [place] [address] Performed By: #### 2 777-1, 22384-9, #### [facility] CLIA [id number] [address] [place] [address] [place] RBC (Bld) [#/Vol] 4.53 10*6/uL Normal 4.20-6.00 [facility] Comment on above: Order Comment: Speci men Type: BLOOD SPECIMEN Ordering Facility: [facility] Address: [address] [place] [address] Performed By: #### 2 777-1, 64732-2, #### [facility] CLIA [id number] [address] [place] [address] [place] WBC (Bld) [#/Vol] 14.46 10*3/uL High 3.70-11.00 [facility] Comment on above: Order Comment: Speci men Type: BLOOD SPECIMEN Ordering Facility: [facility] Address: [address] [place] [address] Performed By: #### 2 777-1, 01310-7, #### [facility] CLIA [id number] [address] [place] [address] [place] HISTORY PHYSICALon HISTORY PHYSICAL HNO ID: [id number] Author: SAMUEL ROBIN MD Service: General Surgery [...] No a (more content not included)... Normal [facility] Magnesium [Mass/Vol] 1.8 mg/dL Normal 1.7-2.3 [facility] Comment on above: Order Comment: Sana zuñiga Type: BLOOD SPECIMEN Ordering Facility: [facility] Address: [address] [place] [address] Performed By: #### 2 777-1, 94617-3, #### [facility] CLIA [id number] [address] [place] [address] [place] PT panel Coag (PPP)on 2023 INR Coag (PPP) [Relative time] 1.2 {INR} Normal 0.9-1.3 [facility] Comment on above: Order Comment: Sana zuñiga Type: BLOOD SPECIMEN Ordering Facility: [facility] Address: [address] [place] [address] Result Comment: Winnie min K Antagonist (VKA) Therapeutic Range: INR 2 to 3 (Target INR of 2.5) Note: For patients treated with VKA drugs, such as warfarin, the [place] [employer] 2012 Guideline recommends [...] Chest 2012, 141:7S-47S Jonny RA, et al. [facility] 2017, 70: 252-289 Performed By: #### 2 777-1, 51313-1, #### [facility] CLIA [id number] [address] [place] [address] [place] PT Coag (PPP) [Time] 12.3 s Normal 9.7-13.0 [facility] Comment on above: Order Comment: Speci men Type: BLOOD SPECIMEN Ordering Facility: [facility] Address: [address] [place] [address] Performed By: #### 2 777-1, 48705-8, #### [facility] CLIA [id number] [address] [place] [address] [place] Phosphate SerPl-mCncon 10-27 Phosphate [Mass/Vol] 3.2 mg/dL Normal 2.7-4.8 [facility] Comment on above: Order Comment: Speci men Type: BLOOD SPECIMEN Ordering Facility: [facility] Address: [address] [place] [address] Performed By: #### 2 777-1, 47666-5, #### [facility] CLIA [id number] [address] [place] [address] [place] SEPSIS LACTATEon 10-28-2023 Lactate [Moles/Vol] 2.0 mmol/L Normal <=2.0 [facility] Comment on above: Order Comment: Speci men Type: BLOOD SPECIMENOrdering Facility: [facility] Address: [address] [place] [address] Performed By: #### S LACT ####[facility] [id number] [place] [address] [place] TYPE + SCREENon 10-28-2023 ABO A Normal [facility] Comment on above: Order Comment: Speci men Type: BLOOD SPECIMEN Ordering Facility: [facility] Address: [address] [place] [address] Performed By: #### 2 4321-2, 37523-8, 2777-1 #### [facility] CLIA [id number] [address] [place] [address] [place] HISTORICAL AB SCR STATUS Negative Normal [facility] Comment on above: Order Comment: Speci men Type: BLOOD SPECIMEN Ordering Facility: [facility] Address: [address] [place] [address] Performed By: #### 2 4321-2, 23570-9, 2777-1 #### [facility] CLIA [id number] [address] [place], [place] [address] [place] Rh Nom (Bld) Positive Normal [facility] Comment on above: Order Comment: Speci men Type: BLOOD SPECIMEN Ordering Facility: [facility] Address: [address] [place] [address] Performed By: #### 2 4321-2, 27963-1, 2777-1 #### [facility] CLIA [id number] [address] [place] [address] [place] TYPE AND SCREEN EXPIRATION 10/31/2023 23:59 Normal [facility] Comment on above: Order Comment: Speci men Type: BLOOD SPECIMEN Ordering Facility: [facility] Address: [address] [place] [address] Performed By: #### 2 4321-2, 18537-1, 2777-1 #### [facility] CLIA [id number] [address] [place] [address] [place] XR ABDOMEN 1V [...] right lower quadrant on the outside CT). Remanufacturing Technician: SUSI Transcribe Date/Time: Oct 28 2023 5:30P Dictated by : WALTER BURGER MD This examination was interpreted and the report reviewed and electronically signed by: WALTER BURGER MD on Oct 28 2023 5:47PM EST [id number] Normal [facility] Basic metabolic 2000 panelOr dered By: Vandaan Ace on 07-16-2023 Anion gap [Moles/Vol] 15 [...] Inclusion of Race in Diagnosing Kidney Disease. [place] Journal of Kidney Diseases 202;79(2):268-88.e1. 2. N Engl J Med 1 Vol. 385 Issue 19 Pages 9491-6365 Glucose [Mass/Vol] 84 mg/dL 74 - 109 [...] vol] 9.1 fL 7.5 - 11.2 fL [facility] Platelets (Bld) [#/Vol] [facility] Comment on above: Platelet cannot be q uantified due to the presence of platelet clumps. Platelet estimate appears normal. RBC (Bld) [#/Vol] 4.59 10*6/uL [facility] WBC (Bld) [#/Vol] 8.6 10*3/uL 4.5 - 11.5 K/uL [facility] CT Head WO contrastOrdered B y: David Kay on 07-16-2023 CT DLP 1126.71 (mGy.cm) [facility] Work Phone: CT Series HEAD W/O,HEAD W/O [facility] Work Phone: CTDI VOL 0.34 (mGy),47.31 (mGy) [facility] Work Phone: PHANTOM TYPE IEC Head Dosimetry Phantom,IEC Head Dosimetry Phantom [facility] Work Phone: [facility] Work Phone: CT Head WO contraston 2022 [...] in the left caudate nucleus. MACRO: None [facility] Radiology Study observation (narrative) [facility] MAGNESIUMon 07-16-2023 Interpretation and review of laboratory results Normal [facility] Magnesium [Mass/Vol] 2.1 mg/dL 1.6 - 2 .8 mg/dL [facility] Lithiumon 07-06-2023 [place] [Moles/Vol] 0.9 mmol/L Invalid Interpretation Code 0.5-1.2 [facility] Comment on above: Result Comment: A co ncentration of 0.5-0.8 mmol/L is advised for long-term use; concentrations of up to 1.2 mmol/L may be necessary during acute treatment. Detection Limit = 0.1 <0.1 indicates None Detected Performed at: [facility] [id number] PhD Agata Narayan Performed By: #### 2 228143, 3185816, 3536273, 4088179, 925765500, 9558727, 1886971, 24694417, 2295984 ####[facility] [address] [place] [address] CBC w/Indiceson 07-04-2023 Erythrocyte distribution width (RBC) [Ratio] 13.8 % Normal 10.9-14.2 [facility] Comment on above: Performed By: #### 2 232970, 6249838, 6197857, 2357009, 097384743, 0626614, 1557449, 26298618, 8078009 #### [facility] [address] [place] [address] Hematocrit (Bld) [Volume fraction] 38.1 % Normal 37.7-49.0 [facility] Comment on above: Performed By: #### 2 058929, 5068486, 3795980, 1957493, 673931849, 0059388, 4938815, 52769354, 6558454 #### [facility] [address] [place] [address] Hemoglobin (Bld) [Mass/Vol] 12.7 g/dL Low 13.5-17.5 [facility] Comment on above: Performed By: #### 2 424425, 9815504, 8597958, 0246447, 933463927, 4696177, 7458042, 55109086, 3435795 #### [facility] [address] [place] [address] MCH (RBC) [Entitic mass] 27.6 pg Normal 27.0-34.0 [facility] Comment on above: Performed By: #### 2 149525, 4256705, 9650773, 2283110, 652420628, 2909230, 8064698, 16151580, 7071922 #### [facility] [address] [place] [address] MCHC (RBC) [Mass/Vol] 33.3 g/dL Normal 31.4-36.0 [facility] Comment on above: Performed By: #### 2 950916, 5034004, 5437811, 9463911, 958053742, 5974103, 8806565, 90400251, 3779505 #### [facility] [address] [place] [address] MCV (RBC) [Entitic vol] 83.0 fL Normal 80.0-100.0 [facility] Comment on above: Performed By: #### 2 657037, 3905138, 8397774, 3920311, 963555244, 8992933, 3029829, 62254525, 3879543 #### [facility] [address] [place] [address] Platelet mean volume (Bld) [Entitic vol] 8.5 fL Normal 6.4-10.8 [facility] Comment on above: Performed By: #### 2 430684, 0281148, 0329049, 1243405, 688225285, 9627832, 2559198, 72220558, 0094187 #### [facility] [address] [place] [address] Platelets (Bld) [#/Vol] 175.0 E9/L Normal 150.0-500.0 [facility] Comment on above: Performed By: #### 2 332102, 7647505, 6588130, 0561230, 573955653, 8732692, 0229390, 51471264, 5996992 #### [facility] [address] [place] [address] RBC (Bld) [#/Vol] 4.6 E12/L Normal 4.3-5.9 [facility] Comment on above: Performed By: #### 2 938214, 1228356, 1657987, 1185217, 863880035, 4511431, 8541456, 94119723, 2456758 #### [facility] [address] [place] [address] WBC corrected for nucl RBC Auto (Bld) [#/Vol] 5.9 E9/L Normal 4.0-11.0 [facility] Comment on above: Performed By: #### 2 474718, 6849743, 1447670, 5543239, 495393052, 3481919, 3539529, 37916815, 3188269 #### [facility] [address] [place] [address] CHEMISTRYOrdered By: SYSTEM SYSTEM on 07-04-2023 25-hydroxyvitamin D3 [Mass/Vol] 33.7 ng/mL Normal 30.0 - 100.0 ng/mL [facility] Comment on above: Interpretive Data: Vitamin D deficiency has been defined as a level of serum 25-OH vitamin D less than 20 ng/mL (1,2) by the Reserve of Medicine and an Endocrine Society practice guideline. The Endocrine Society further defined vitamin D insufficiency as a level between 21 and 29 ng/mL (2). 1. IOM (Reserve of Medicine). 2010. Dietary reference intakes for [...] 118 mL/min/1.73 m2 Normal >=59mL/min/1 .73 m2 [facility] Comment on above: Interpretive Data: [...] 2.75 m[IU]/L Normal 0.34 - 5.60 mcIU/mL [facility] Remisol Urea nitrogen [Mass/Vol] 20 mg/dL Normal 5 - 21 mg/dL [facility] Remisol Urea nitrogen/Creatinine [Mass ratio] 22 mg/mg High 10 - 20 [facility] Remisol Valproate [Moles/Vol] 79 microgram/mL Normal 50 - 99 mcg/mL [facility] Remisol CMPon 07-04-2023 Albumin [Mass/Vol] 3.7 g/dL Normal 3.3-5.0 [facility] Comment on above: Performed By: #### 2 532884, 1695035, 5843685, 2448167, 966173845, 6060710, 1753956, 76579323, 5545220 #### [facility] [address] [place] [address] Albumin/Globulin (S) [Mass conc ratio] 1.0 Low 1.1-2.2 [facility] Comment on above: Performed By: #### 2 849370, 0925068, 4590406, 7986376, 252148554, 0995810, 0881830, 08598203, 2446045 #### [facility] [address] [place] [address] ALP [Catalytic activity/Vol] 37 Int._Unit/L Normal 21-98 [facility] Comment on above: Performed By: #### 2 292041, 0331206, 6875238, 5767340, 319823187, 9972832, 3415048, 32733802, 3587386 #### [facility] [address] [place] [address] ALT No additional P-5'-P [Catalytic activity/Vol] 15 Int._Unit/L Normal 6-46 [facility] Comment on above: Performed By: #### 2 487648, 9801729, 6014951, 8598165, 828161545, 6388842, 7066937, 54116965, 1762576 #### [facility] [address] [place] [address] Anion gap [Moles/Vol] 12 mmol/L Normal 6-16 [facility] Comment on above: Performed By: #### 2 706018, 9546437, 1781679, 9343255, 275291116, 5076375, 5492359, 39959899, 4407787 #### [facility] [address] [place] [address] AST [Catalytic activity/Vol] 22 Int._Unit/L Normal 5-43 [facility] Comment on above: Performed By: #### 2 786830, 4021757, 5215734, 0873290, 651129746, 3796683, 8866724, 54936796, 8888493 #### [facility] [address] [place] [address] Bilirubin [Mass/Vol] 0.1 mg/dL Normal 0.0-1.1 [facility] Comment on above: Performed By: #### 2 692321, 7206966, 4545305, 9105709, 710081236, 6921457, 7607551, 03666652, 3561346 #### [facility] [address] [place] [address] Calcium [Mass/Vol] 9.7 mg/dL Normal 8.9-11.1 [facility] Comment on above: Performed By: #### 2 062272, 0361740, 5230241, 0319754, 025656657, 9832997, 7412262, 87533428, 8127292 #### [facility] [address] [place] [address] Chloride [Moles/Vol] 108 mmol/L Normal 101-111 [facility] Comment on above: Performed By: #### 2 299699, 6323800, 2348248, 8423075, 392843678, 9958433, 0387247, 47090531, 5100738 #### [facility] [address] [place] [address] CO2 [Moles/Vol] 23 mmol/L Normal 21-31 [facility] Comment on above: Performed By: #### 2 010198, 5319778, 7479417, 3459479, 713556788, 3807795, 1994668, 84074376, 6170592 #### [facility] [address] [place] [address] Creatinine [Mass/Vol] 0.9 mg/dL Normal 0.5-1.3 [facility] Comment on above: Performed By: #### 2 106891, 6823352, 5171925, 2178241, 987820538, 6801475, 6728634, 08893378, 4504432 #### [facility] [address] [place] [address] Globulin (S) [Mass/Vol] 3.8 g/dL Normal 1.4-4.0 [facility] Comment on above: Performed By: #### 2 606452, 2157159, 7813609, 8307373, 655208776, 1428157, 5260938, 31936821, 7010799 #### [facility] [address] [place] [address] Glucose [Mass/Vol] 86 mg/dL Normal 55-199 [facility] Comment on above: Result Comment: If t his glucose result represents a fasting glucose, interpretation should refer to the following reference range: 55-99 mg/dL Performed By: #### 2 791730, 0872774, 6128817, 0145116, 651768180, 0832539, 4352282, 42473208, 9077308 #### [facility] [address] [place] [address] Potassium [Moles/Vol] 4.3 mmol/L Normal 3.5-5.3 [facility] Comment on above: Performed By: #### 2 058645, 6668048, 0755588, 7372717, 945021420, 1507089, 3219240, 44095073, 2751299 #### [facility] [address] [place] [address] Protein [Mass/Vol] 7.5 g/dL Normal 6.0-7.8 [facility] Comment on above: Performed By: #### 2 535456, 2915006, 5885344, 3386054, 236011000, 1951532, 3239199, 24942439, 0376953 #### [facility] [address] [place] [address] Sodium [Moles/Vol] 139 mmol/L Normal 135-145 [facility] Comment on above: Performed By: #### 2 878988, 1021007, 4274266, 3306072, 139941093, 2788114, 8030713, 20867214, 7226328 #### [facility] [address] [place] [address] Urea nitrogen [Mass/Vol] 20 mg/dL Normal 5-21 [facility] Comment on above: Performed By: #### 2 982667, 1169038, 4068748, 5893278, 747360223, 7017444, 2455953, 31066882, 3775730 #### [facility] [address] [place] [address] Urea nitrogen/Creatinine [Mass ratio] 22 No Units High 10-20 [facility] Comment on above: Performed By: #### 2 672056, 5904632, 8287897, 6399101, 057723201, 2071819, 8746862, 26602497, 7408381 #### [facility] [address] [place] [address] Free T4on 07-04-2023 Free T4 [Mass/Vol] 0.70 ng/dL Normal 0.58-1.64 [facility] Comment on above: Performed By: #### 2 848130, 2628749, 8693779, 3792453, 642188791, 2918989, 8915808, 09069382, 4009809 #### [facility] [address] [place] [address] HEMATOLOGYOrdered By: Jersey Arnett on 07-04-2023 Erythrocyte [...] 8.5 fL Normal 6.4 - 10.8 fL [facility] HemeAutoSS Platelets (Bld) [#/Vol] 175.0 E9/L Normal 150.0 - 500.0 E9/L [facility]eAutoSS RBC (Bld) [#/Vol] 4.6 E12/L Normal 4.3 - 5.9 E12/L [facility]eAutoSS WBC corrected for nucl RBC Auto (Bld) [#/Vol] 5.9 E9/L Normal 4.0 - 11.0 E9/L [facility] HemeAutoSS Lipid Panelon 07-04-2023 Cholesterol [Mass/Vol] 145 mg/dL Normal 120-200 [facility] Comment on above: Performed By: #### 2 090875, 9493397, 7785531, 7994173, 595305043, 5956165, 3994754, 33183368, 6351860 #### [facility] [address] [place] [address] Cholesterol in HDL [Mass/Vol] 40 mg/dL Invalid Interpretation Code [facility] Comment on above: Result Comment: HDL > or equal to 60 mg/dL: Low cardiovascular risk HDL < 40 mg/dL : High cardiovascular risk Performed By: #### 2 600228, 1418882, 9822126, 2391550, 170829790, 6535625, 4756127, 29482290, 2585292 #### [facility] [address] [place] [address] Cholesterol in LDL [Mass/Vol] 86 mg/dL Normal <=129 [facility] Comment on above: Performed By: #### 2 [id number], [id number], 9327353, [id number], [id number], [id number], [id number], [id number], [id number] #### [facility] [address] [place] [address] Cholesterol in VLDL [Mass/Vol] 27 mg/dL Normal 7-40 [facility] Comment on above: Performed By: #### 2 [id number], [id number], 3188970, 5724455, [id number], 9488768, 0662350, [id number], [id number] #### [facility] [address] [place] [address] Triglyceride [Mass/Vol] 133 mg/dL Normal <=149 [facility] Comment on above: Performed By: #### 2 [id number], [id number], 1576047, [id number], [id number], 7703535, 4598649, [id number], [id number] #### [facility] [address] [place] [address] Physician Orderon 07-04-2023 Physician Order [id number]# 1.00TIFF Normal [facility] TSHon 07-04-2023 TSH Qn 2.75 m[IU]/L Normal 0.34-5.60 [facility] Comment on above: Performed By: #### 2 [id number], 2559961, 1527780, 5938955, [id number], 0002515, 1244273, [id number], 5755343 #### [facility] [address] [place] [address] Valproic Acidon 07-04-2023 Valproate [Moles/Vol] 79 microgram/mL Normal 50-99 [facility] Comment on above: Performed By: #### 2 [id number], 5154367, 6520744, 6604976, [id number], 6559666, 3432132, [id number], [id number] #### [facility] [address] [place] [address] Vitamin D 25 Hydroxyon 07-04 25-hydroxyvitamin D3 [Mass/Vol] 33.7 ng/mL Normal 30.0-100.0 [facility] Comment on above: Result Comment: Vit alfredo D deficiency has been defined as a level of serum 25-OH vitamin D less than 20 ng/mL (1,2) by the Reserve of Medicine and an Endocrine Society practice guideline. The Endocrine Society further defined vitamin D insufficiency as a level between 21 and 29 ng/mL (2). 1. IOM (Reserve of Medicine). 2010. Dietary reference intakes for calcium and D. [place]: The National Academies Press. 2. Denia MF, Marcelino CHAIDEZ, Ann GARVEY, et al. Evaluation, treatment, and prevention of vitamin D deficiency: an Endocrine Society clinical practice guideline. JCEM. 2010; 96 (7):1911-30. Performed By: #### 2 332645, 8127024, 1533876, 7943931, [id number], 3018754, 9582177, 64334294, 6563249 #### [facility] [address] [place] [address] eGFRon 07-04-2023 GFR/1.73 sq M.predicted among non-blacks MDRD (S/P/Bld) [Vol rate/Area] 118 mL/min/1.73 m2 Normal >=59 [facility] Comment on above: Order Comment: Order added by Discern Expert. Result Comment: Certified Fraud Examiner jenni kidney disease could be indicated at eGFR's of less than 60 mL/min/1.73m2. Kidney failure is indicated at less than 15 mL/min/1.73m2. Performed By: #### 2 350769, 0597579, 9132627, 3833589, [id number], 0123328, 5390909, [id number], [id number] #### [facility] [address] [place] [address] XR Chest PA and Lateralon EXAMINATION: XR [...] indicated with dedicated abdominal radiograph/CT. MACRO: None [facility] Rad[facility] Study observation (narrative) [facility] XR Chest PA and LateralOrder ed By: Krystal Epstein on 06-22-2023 [facility] Work Phone: DEPAKENE/ VALPROIC ACIDon DEPAKENE 59.3 ug/ml Normal 50.0-100.0 [facility] Comment on above: Performed By: #### V ALP #### [facility] [address] [place] [address] Dr. Nikky King DEPAKENE/ VALPROIC ACIDon DEPAKENE 43.6 ug/ml Critically low 50.0-100.0 [facility] Comment on above: Performed By: #### V ALP #### [facility] [address] [place] [address] Dr. Nikky King LITHIUMon 12-06-2022 [place] (Eskalith(R)), Serum 0.8 mmol/L Normal 0.5-1.2 [facility] Comment on above: Result Comment: A co ncentration of 0.5-0.8 mmol/L is advised for long-term use; concentrations of up to 1.2 mmol/L may be necessary during acute treatment. Detection Limit = 0.1 <0.1 indicates None Detected Performed By: #### L ITHIUM #### [facility] [address] [place] [address] Dr. Nikky King DEPAKENE/ VALPROIC ACIDon DEPAKENE 61.7 ug/ml Normal 50.0-100.0 [facility] Comment on above: Performed By: #### V ALP #### [facility] [address] [place] [address] Dr. Nikky King LITHIUMon 11-23-2022 [place] (Eskalith(R)), Serum 0.9 mmol/L Normal 0.5-1.2 [facility] Comment on above: Result Comment: A co ncentration of 0.5-0.8 mmol/L is advised for long-term use; concentrations of up to 1.2 mmol/L may be necessary during acute treatment. Detection Limit = 0.1 <0.1 indicates None Detected Performed By: #### L ITHIUM #### [facility] [address] [address] Dr. Nikky King CALCIUMon 08-22-2022 Calcium [Mass/Vol] 9.6 mg/dL Normal 8.5-10.1 [facility] Comment on above: Performed By: #### C A, CREA #### [facility] [address] [place] [address] Dr. Nikky King CREATININEon 08-22-2022 Creatinine [Mass/Vol] 0.84 mg/dL Normal 0.70-1.30 [facility] Comment on above: Performed By: #### C A, CREA #### [facility] [address] [place] [address] Dr. Nikky King EGFR-AF COMORAN >60 Normal >=60 [facility] Comment on above: Performed By: #### C A, CREA #### [facility] [address] [place] [address] Dr. Nikky King EGFR-NON AF COMORAN >60 Normal >=60 [facility] Comment on above: Performed By: #### C A, CREA #### [facility] [address] [place] [address] Dr. Nikky King LITHIUMon 07-05-2022 [place] (Eskalith(R)), Serum 0.9 mmol/L Normal 0.5-1.2 [facility] Comment on above: Result Comment: A co ncentration of 0.5-0.8 mmol/L is advised for long-term use; concentrations of up to 1.2 mmol/L may be necessary during acute treatment. Detection Limit = 0.1 <0.1 indicates None Detected Performed By: #### L ITHIUM #### [facility] [address] [place] [address] Dr. Nikky King Vital Signs Date Time Vital Sign Value Performing Clinician Severinoi lity 12-02-2024 12:32-0400 Body height 167.6 cm [employer] Work Phone: [facility] [employer] 12-02-2024 12:32-040 Body mass index (BMI) [Ratio] 31.96 kg/m2 [employer] Work Phone: [facility] [employer] 12-02-2024 12:32040 Body weight 89.81 kg [employer] Work Phone: [facility] 12-02-2024 12:32-0400 Diastolic blood pressure 82 mm[Hg] Cris Lowe PA Work Phone: [facility] 12-02-2024 12:32-0400 Systolic blood pressure 128 mm[Hg] Cris Lowe PA Work Phone: [facility] 05-21-2024 09:29-0400 Body height 167.6 cm Cris Lowe PA Work Phone: [facility] 05-21-2024 09:29-0400 Body mass index (BMI) [Ratio] 31.96 kg/m2 Cris Lowe PA Work Phone: [facility] 05-21-2024 09:29-0400 Body weight 89.81 kg Cris Lowe PA Work Phone: [facility] 05-21-2024 09:29-0400 Diastolic blood pressure 90 mm[Hg] Cris Lowe PA Work Phone: [facility] 05-21-2024 09:29-0400 Systolic blood pressure 136 mm[Hg] Cris Lowe PA Work Phone: [facility] 12-28-2023 14:30-0400 Diastolic blood pressure 89 mm[Hg] Mari Traore DMD Work Phone: [facility] 12-28-2023 14:30-0400 Heart rate 69 /min Mariayanna Traore DMD Work Phone: [facility] 12-28-2023 14:30-0400 Respiratory rate 10 /min Mari Traore DMD Work Phone: [facility] 12-28-2023 14:30-0400 SaO2% (BldA) [Mass fraction] 100 % Mariayanna Vaner DMD Work Phone: [facility] 12-28-2023 14:30-0400 Systolic blood pressure 135 mm[Hg] Mari Traore DMD Work Phone: [facility] 12-28-2023 13:52-0400 Body temperature 97.3 [degF] Mari Vaner DMD Work Phone: [employer] 12-28-2023 09:15-0400 Body height 167.6 cm Mari Traore DMD Work Phone: [employer] 12-28-2023 09:15-0400 Body mass index (BMI) [Ratio] 31.8 kg/m2 Mari Traore DMD Work Phone: [employer] 12-28-2023 09:15-0400 Body weight 89.36 kg Mari Traore DMD Work Phone: [employer] 12-19-2023 11:23-0400 Diastolic blood pressure 90 mm[Hg] Ling Khaiiv BAR TENDER-COLLATERAL ANALYST Work Phone: [employer] 12-19-2023 11:23-0400 Systolic blood pressure 132 mm[Hg] Ling Khaiiv BAR TENDER-COLLATERAL ANALYST Work Phone: [employer] 12-19-2023 11:03-0400 Body height 167.6 cm Ling Khaiiv BAR TENDER-COLLATERAL ANALYST Work Phone: [employer] 12-19-2023 11:03-0400 Body mass index (BMI) [Ratio] 31.8 kg/m2 Ling Markiv BAR TENDER-COLLATERAL ANALYST Work Phone: [employer] 12-19-2023 11:03-0400 Body temperature 97.81 [degF] Ling Markiv BAR TENDER-COLLATERAL ANALYST Work Phone: [employer] 12-19-2023 11:03-0400 Body weight 89.36 kg Ling Markiv BAR TENDER-COLLATERAL ANALYST Work Phone: [employer] 12-19-2023 11:03-0400 Heart rate 59 /min Ling Markiv BAR TENDER-COLLATERAL ANALYST Work Phone: [employer] 12-19-2023 11:03-0400 Respiratory rate 18 /min Ling Khaiiv BAR TENDER-COLLATERAL ANALYST Work Phone: [employer] 12-19-2023 11:03-0400 SaO2% (BldA) [Mass fraction] 97 % Ling Ridleyclaudia BAR TENDER-COLLATERAL ANALYST Work Phone: [facility] 12-03-2023 13:07-0400 Body height 167.6 cm Oscar Ruiz MD Work Phone: [facility] 12-03-2023 13:07-0400 Body weight 92.53 kg Oscar Ruiz MD Work Phone: [facility] 12-03-2023 13:07-0400 Diastolic blood pressure 76 mm[Hg] Oscar Ruiz MD Work Phone: [facility] 12-03-2023 13:07-0400 Heart rate 71 /min Oscar Ruiz MD Work Phone: [facility] 12-03-2023 13:07-0400 Systolic blood pressure 111 mm[Hg] Oscar Ruiz MD Work Phone: [facility] 11-28-2023 09:48-0400 Body height 167.6 cm Victoria Daniel BAR TENDER.COLLATERAL ANALYST Work Phone: [facility] 11-28-2023 09:48-0400 Body temperature 97.5 [degF] Victoria Daniel BAR TENDER.COLLATERAL ANALYST Work Phone: [facility] 11-28-2023 09:48-0400 Body weight 87.54 kg Victoria Daniel BAR TENDER.COLLATERAL ANALYST Work Phone: [facility] 11-28-2023 09:48-0400 Diastolic blood pressure 66 mm[Hg] Victoria Daniel BAR TENDER.COLLATERAL ANALYST Work Phone: [facility] 11-28-2023 09:48-0400 Heart rate 83 /min Victoria Daniel BAR TENDER.COLLATERAL ANALYST Work Phone: [facility] 11-28-2023 09:48-0400 Systolic blood pressure 134 mm[Hg] Victoria Daniel BAR TENDER.COLLATERAL ANALYST Work Phone: [facility] 07-16-2023 08:06-0500 Body mass index (BMI) [Ratio] 33.97 kg/m2 Kim Beltre MD Work Phone: [employer] 07-16-2023 08:06-0500 Body temperature 97.5 [degF] Kim Beltre MD Work Phone: [employer] 07-16-2023 08:06-0500 Body weight 90.27 kg Kim Beltre MD Work Phone: [employer] 07-16-2023 08:06-0500 Diastolic blood pressure 80 mm[Hg] Kim Beltre MD Work Phone: [employer] 07-16-2023 08:06-0500 Heart rate 37 /min Kim Beltre MD Work Phone: [employer] 07-16-2023 08:06-0500 Respiratory rate 15 /min Kim Beltre MD Work Phone: [employer] 07-16-2023 08:06-0500 SaO2% (BldA) [Mass fraction] 100 % Kim Beltre MD Work Phone: [employer] 07-16-2023 08:06-0500 Systolic blood pressure 110 mm[Hg] [facility] En[facility] Encounter Date Encounter Type Care Provider Facility Start: 02-24-2025 End: 02-24-2025 Patient encounter procedure Kendra Jaramillo DDS Work Phone: [employer] Comment on above: Encounter for dental examination (Primary Dx) Start: 02-24-2025 End: 02-24-2025 Patient encounter status Kendra Clint MATA Work Phone: [facility] Work Phone: Start: 12-16-2024 [...] Letter encounter Gallagherroger Corcoran DDS Work Phone: [employer] Start: 05-21-2024 End: 05-21-2024 Bamboo flowsheet Cris Lowe PA Work Phone: [facility] Start: 05-21-2024 End: 05-21-2024 Bamboo flowsheet Cris Lowe PA Work Phone: [facility] Start: 05-21-2024 End: 05-21-2024 Office outpatient visit 15 minutes Cris Lowe PA Work Phone: [facility] [address] [facility] Comment on above: Alteration of awaren ess (Primary Dx) Start: 05-21-2024 End: 05-21-2024 ambulatory CRIS LOWE Not Available Start: 05-18-2024 End: 05-18-2024 Letter encounter Aileen Corcoran DDS [facility] Phone[facility] Start: 02-13-2024 End: 02-13-2024 Lab Drop off HERMAN ROMERORING [facility] Start: 02-13-2024 End: 02-13-2024 ambulatory HERMAN CRANE [facility] Start: 01-29-2024 End: 01-29-2024 ambulatory CRIS LOWE Not Available Start: 01-11-2024 Telephone encounter Cris Dinh RN Colorectal Surgery Comment on above: Hot Knife Foxing Cutter - O ther Start: 12-28-2023 End: 12-31-2023 Patient encounter procedure Mari Kassidy DMD Work Phone: [facility] Start: 12-28-2023 End: 12-28-2023 Subsequent hospital visit by physician Mari Traore DMD Work Phone: [facility] Start: 12-28-2023 End: 12-31-2023 ambulatory RYAN ZURITA Facility:[facility] Start: 12-25-2023 Telephone encounter Shayy Chandler RN [facility] Pre-Admission Testing Comment on above: Pre-surgical Evaluat ion (DD adult dental restorations 12/27 under [place] at [place]. PAT completed - consent request sent to main - see future encounter for results. CHRISTINA RN spoke to [facility], confirmed O, [place] address, and 0900 arrival time/) Pre-surgical Evaluat ion (Anesthesia Attestaion for dental surgery scanned in media sales executive) Start: 12-20-2023 End: 12-20-2023 Orders Only Victoria Sanchez APRN.COLLATERAL ANALYST Work Phone: General Surgery Comment on above: Sigmoid volvulus (HC C) (Primary Dx) Start: 12-19-2023 End: 12-19-2023 Patient encounter procedure Ling Coffman BAR TENDER-COLLATERAL ANALYST Work Phone: [facility] Pre-Admission Testing Comment on above: Pre-op testing (Prim marylin Dx); Body mass index (BMI) 31.0-31.9, adult Start: 12-19-2023 End: 12-19-2023 Patient encounter status Ling Coffman BAR TENDER-COLLATERAL ANALYST Work Phone: [facility] Work Phone: Start: 12-19-2023 ambulatory RYAN ZURITA Facilit y:[facility] Start: 12-19-2023 Encounter for other preprocedural examination LING COFFMAN [facility] Start: 12-11-2023 End: 12-11-2023 ambulatory EPIFANIO HUNTLEY Not Available Start: 12-03-2023 End: 12-04-2023 ambulatory Rafael Giraldo MD Work Phone: Urology Start: 12-03-2023 End: 12-03-2023 Office outpatient visit 5 minutes Oscar Ruiz MD Work Phone: Urology Comment on above: Phimosis (Primary Dx ) Start: 11-28-2023 End: 11-29-2023 ambulatory VICTORIA SANCHEZ Facility:[facility] Start: 11-28-2023 End: 11-28-2023 Patient encounter procedure Victoria Sanchez BAR TENDER.COLLATERAL ANALYST Work Phone: General Surgery Comment on above: Postoperative visit (Primary Dx) Start: 11-12-2023 Telephone encounter Cris Dinh RN Colorectal Surgery Comment on above: Hot Knife Foxing Cutter - O ther Start: 11-07-2023 End: 11-07-2023 ambulatory PHOENIX CARDENAS Facility:[facility] Start: 10-28-2023 Evaluation and management of inpatient PHOENIX CARDENAS Facility:[facility] Start: 10-10-2023 [facility] Coleen Dodson DDS Other Phone: [facility] Start: 07-16-2023 End: 07-16-2023 Emergency department patient visit Kim Beltre MD Work Phone: [facility] Emergency Department Comment on above: bradycardia (Low HR (33)) Start: 07-16-2023 End: 07-16-2023 Subsequent hospital visit by physician Harpreet Mccurdy DDS Work Phone: [facility] Radiology CT Scan Comment on above: Arrived Start: 07-04-2023 End: 07-04-2023 ambulatory HERMAN CRANE [facility] Start: 07-04-2023 End: 07-04-2023 Lab Drop off HERMAN CRANE [facility] Start: 06-26-2023 Telephone encounter Shanna marquez RN [facility] Pre Surgical Evaluation Comment on above: Pre-surgical Evaluat ion (Informed Consent for dental surgery & Anesthesia consent obtained) Start: 06-22-2023 End: 06-22-2023 Subsequent hospital visit by physician Op Xray 2 [facility] Comment on above: Pre-op exam Start: 06-22-2023 End: 06-22-2023 Patient encounter procedure Pse Anesthesia [facility] Pre Surgical Evaluation Comment on above: Pre-op evaluation (P rimary Dx) Start: 06-22-2023 End: 06-22-2023 Preprocedural examination done Pse Anesthesia [facility] Work Phone: Start: 05-25-2023 [facility] Hiram Rodriguez DDS Work Phone: [facility] Start: 01-17-[address] HERMAN [...] other specified special examinations DR HERMAN CRANE [facility] Start: 08-22-2022 End: 08-23-[address] HERMAN [...] Start: 03-29-2022 Telephone encounter To Be Assigned [facility] Physician Referral Service Comment on above: Medical Record Revie w Procedures Date Procedure Procedure Detail Performing Clinician Start: 02-24-2025 LIMITED ORAL EVALUAT ION - PROBLEM FOCUSED Kendra Jaramillo DDS Work Phone: Start: 02-24-2025 PANORAMIC RADIOGRAPH IC IMAGE Kendra Jaramillo DDS Work Phone: Start: 12-19-2023 Basic metabolic pane l calcium total Ling Markiv BAR TENDER-COLLATERAL ANALYST Work Phone: Start: 10-28-2023 Antibody screen PHOENIX CARDENAS Comment on above: Order Comment: Speci men Type: BLOOD SPECIMEN Ordering Facility: [facility] Address: [address] [place] [address] Performed By: #### 2 [id number], [id number], 2777-1 #### [facility] CLIA [id number] [address] [place] [address] [place] [address] [place] Start: 07-16-2023 End: [...] 2) [facility] Start: 07-10-2029 Tetanus vaccination [facility] Start: 07-10-2029 Urine microalbumin profile DTaP,Tdap,Td Vaccine (2 - Td or Tdap) [facility] Start: 04-20-2025 Influenza vaccination INFLUENZA VACC INE (#1) [facility] Start: 12-02-2024 End: 12-02-2024 Patient encounter procedure [facility] Comment on above: Arrived Start: 05-21-2024 End: 05-21-2024 Patient encounter procedure 05/21/2024 9:40 AM EDT Office Visit [facility] [address] [place] [address] Cris Walters PA [address] [place] [address] Arrived [facility] Comment on above: Arrived Start: 04-20-2024 COVID-19 VACCINE ( season) COVID-19 VACCINE ( season) [facility] Start: 04-20-2024 COVID-19 Vaccine ( season) COVID-19 Vaccine ( season) [facility] Start: 04-20-2024 COVID-19 Vaccine ( season) COVID-19 Vaccine ( season) [facility] Start: 04-20-2024 Influenza vaccination Influenza Vacc ine (#1) [facility] Start: 03-11-2024 End: 03-11-2024 Patient encounter procedure 03/11/2024 9:00 AM EDT Office Visit [facility] [address] [place], [place] [id number] Iain Lazcano MD [address] [place] [address] [facility] Ophthal[facility] Comment on above: Cataracts Start: 12-28-2023 End: 12-28-2023 Admission to same day surgery center 12/28/2023 10:01 AM EDT - 12/28/2023 12:21 PM EDT Surgery [facility] [address] [place] [address] Mari Traore, DMD [address] [place], [place] [id number] DENTAL RESTORATIONS [facility] Comment on above: DENTAL RESTORATIONS Start: 12-28-2023 End: 12-28-2023 DENTAL RESTORATIONS [facility] Start: 12-28-2023 Subsequent hospital visit by physician 12/28/2023 10:01 AM EDT Hospital Encounter [facility] [address] [place] [id number] Mari Traore, DMD [address] [place], [place] [id number] [facility] Start: 12-28-2023 End: 12-28-2023 Patient encounter procedure 12/28/2023 9:00 AM EDT Procedure Visit [facility] [address] [place] [address] Mari Traore, DMD [address] [place], [place] [phone] [facility] Start: 08-20-2023 Behavioral Health Screening Behavioral Health Screening [facility] Start: 08-20-2023 Depression Assessment Depression Ass essment [facility] Start: 07-16-2023 End: 07-16-2023 DENTAL RESTORATIONS DENTAL RESTORATIONS Routine scheduled Caries 07/16/2023 1:45 PM EST [facility] Start: 07-16-2023 End: 07-16-2023 Admission to same day surgery center 07/16/2023 9:27 AM EST - 07/16/2023 11:24 AM EST Surgery [facility] [address] [place] [id number] Harpreet Mccurdy, DDS [address] [place], [place] [phone] DENTAL RESTORATIONS [facility] Comment on above: DENTAL RESTORATIONS Start: 07-16-2023 End: 07-16-2023 DENTAL RESTORATIONS DENTAL RESTORATIONS Routine scheduled Caries 07/16/2023 9:27 AM EST [facility] Start: 07-16-2023 Subsequent hospital visit by physician [facility] Start: 06-22-2023 End: 06-22-2023 Patient encounter procedure 06/22/2023 2:30 PM EDT Office Visit [facility] [address] [place] [address] Franc Beyer MD [facility] [place] [phone] [facility] Start: 04-20-2023 COVID-19 Vaccine () COVID-19 Vaccine ( season) [facility] Start: 04-20-2023 Influenza vaccination Influenza Vacc ine (#1) [facility] Start: 05-20-2022 Influenza vaccination Influenza Vacc ine (#1) [facility] Start: 04-20-2022 Influenza vaccination INFLUENZA (#1) [facility] Start: 08-20-2021 DEPRESSION ASSESSMENT DEPRESSION ASS ESSMENT [facility] Start: 08-10-2021 COVID-19 VACCINE (4 - Booster for Pfizer series) COVID-19 VACCINE (4 - Booster for Pfizer series) [facility] Start: 2019 HPV Vaccine (optiona l start 27-45 years) HPV Vaccine (optional start 27-45 years) [facility] Start: 02-17-2014 Annual wellness visit Annual W ellness Visit ([id number]) [facility] Start: 2011 Hepatitis A (HAV) Vaccine (optional start 19+ years) Hepatitis A (HAV) Vaccine (optional start 19+ years) [facility] Start: 2011 Hepatitis B vaccination [facility] Start: 2011 Hepatitis B Vaccine (1 of 3 - 19+ 3-dose series) Hepatitis B Vaccine (1 of 3 - 19+ 3-dose series) [facility] Start: 2011 Urine microalbumin profile DTAP,TDAP,TD (1 - Tdap) [facility] Start: 2010 Annual PCP Team Certified Fraud Examiner jenni Disease Visit Annual PCP Team Chronic Disease Visit [facility] Start: 2010 Hepatitis C screening M [facility] Start: 2010 HEPATITIS C SCREENING HEPATITIS C SC REENING [facility] Start: 2010 HIV SCREENING HIV SCREENING [facility] Start: 2010 HIV screening HIV Screening [facility] Start: 2007 HIV screening [facility] Start: 2004 Adult depression screening assessment DEPRESSION SCREENING [facility] Start: 1992 HEPATITIS B (1 of 3 - 3-dose series) HEPATITIS B (1 of 3 - 3-dose series) [facility] Start: 1992 Hepatitis B vaccination Hepati tis B (HBV) Vaccine (1 of 3 - 3-dose series) [facility] Start: 1992 Hepatitis C screening HEPATITI S C VIRUS SCREENING [facility] Start: 1992 Thyroid stimulating [facility] COMPREHENSIVE ORAL E GORDON - NEW/EST PATIENT COMPREHENSIVE ORAL EVAL - NEW/EST PATIENT Dental Routine 1 Occurrences starting 02/24/2025 [facility] Work Phone: Comment on above: 1 Occurrences starti ng 02/24/2025 DENTAL RESTORATIONS DENTAL OMAR RATIONS Routine scheduled [facility] INTRA[facility]AL - COMPLETE SERIES OF RADIOGRAPHIC IMAGES INTRAORAL - COMPLETE SERIES OF RADIOGRAPHIC IMAGES Dental Routine 1 Occurrences starting 02/24/2025 [facility] Work Phone: Comment on above: 1 Occurrences starti ng 02/24/2025 PROPHYLAXIS - ADULT PROPHYLAXIS - ADULT Dental Routine 1 Occurrences starting 02/24/2025 [facility] Work Phone: Comment on above: 1 Occurrences starti ng 02/24/2025 URINALYSIS, REFLEX MICROSCOPIC URINALYSIS, REFLEX MICROSCOPIC Lab Routine Screening for genitourinary condition Ordered: 12/03/2023 [facility] Work Phone: Comment on above: Ordered: 12/03/2023 [facility] Immunizations Immunization Date Immunization Notes Care Provider Jason lowe 06-05-2024 influenza virus vaccine, unspecified formulation Kendra Jaramillo DDS Work Phone: [facility] Work Phone: 06-15-2021 influenza, injectabl e, quadrivalent, preservative free To Assigned [facility] 06-15-2021 influenza virus vaccine, unspecified formulation To Assigned [facility] 05-26-2020 influenza, injectabl e, quadrivalent, preservative free To Assigned [facility] 07-10-2019 tetanus toxoid, reduced diphtheria toxoid, and acellular pertussis vaccine, adsorbed To Assigned [facility] 06-13-2019 influenza, injectabl e, quadrivalent, preservative free To Assigned [facility] 05-29-2018 influenza, injectabl e, quadrivalent, preservative free To Assigned [facility] 06-13-2017 influenza, injectabl e, quadrivalent, contains preservative To Assigned [facility] 06-10-2015 influenza, injectabl e, quadrivalent, preservative free To Assigned [facility] 06-12-2012 influenza, seasonal, injectable To Assigned [facility] 05-03-2011 influenza, seasonal, injectable, preservative free To Assigned [facility] 06-15-2010 influenza, seasonal, injectable To Assigned [facility] 07-07-2009 novel [id number], preservative-free, injectable To Assigned [facility] 05-11-2009 influenza, seasonal, injectable To Assigned [facility] 06-15-2008 influenza, seasonal, injectable To Assigned [facility] 06-11-2008 influenza virus vaccine, whole virus To Assigned [facility] Payers Date Payer Category Payer Specific state progr [facility] (list/ local code) TB FUNDED 0000 [id number] 07-08-2020 Unknown [id number] 07-20-2017 Dental --Stand Alone DENTAL-MEDI CAID [id number] 07-20-2017 Medicaid [id number] 02-17-2013 Medicare [id number] [id number] .[id number] 02-17-2013 Medicare FFS MEDICARE [id number] 1992 Unknown [id number] 2.840.1.949845.3.579.2. 727 1992 Unknown [id number] 2.16840.1.744169.3.579.2. 727 1992 Unknown [id number] 2.840.1.964886.3.579.2. 9 1992 Unknown [id number] 2.16840.1.094313.3.579.2. 1259 1992 Unknown [id number] 2.16840.1.538896.3.579.2. 1259 1992 Unknown [id number] 2.16.840.1.305590.3.579.2. 1259 1992 Unknown [id number] 2.16.840.1.232725.3.579.2. 1259 1992 Unknown [id number] 2.16.840.1.294053.3.579.2. 732 1992 Unknown [id number] 2.16.840.1.289830.3.579.2. 732 1992 Unknown [id number] 2.16.840.1.980577.3.579.2. 732 1992 Unknown [id number] 2.16.840.1.950396.3.579.2. 732 08-20-1957 Medicaid [id number] 08-20-1957 Medicare [id number] Unknown [id number] 2.16.840.1.322197.3.579.2. 593 Unknown [id number] 2.16.840.1.054073.3.579.2. 593 Unknown [id number] 2.16.840.1.791540.3.579.2. 593 Unknown [id number] 2.16.840.1.164842.3.579.2. 593 Unknown [id number] 2.16.840.1.707806.3.579.2. 593 Unknown [id number] 2.16.840.1.896955.3.579.2. 593 Unknown [id number] 2.16.840.1.926758.3.579.2. 593 Unknown [id number] 2.16.840.1.071022.3.579.2. 593 Specific state progr ams (list/ local code) TB FUNDED Member Subscriber Plan / Payer (Effective for All Dates) Name: Johnny Devine Member ID: Not on file Relation to Subscriber: Self Name: Johnny Devine Subscriber ID: Not on file Payer ID: Not on file Group ID: Not on file Type: Other Address: [place] [id number] Social History Date Type Detail Facility Start: 07-08-2019 End: 02-24-2025 Tobacco smoking status NHIS Never smoked tobacco [facility] Start: 07-08-2019 End: 02-24-2025 Tobacco use and exposure Smokeless tobacco non-user [facility] Start: 02-04-2021 End: 02-24-2025 Alcohol intake Lifetime non-drinker (finding) [facility] Start: 07-13-2020 History SDOH Alcohol Frequency 1 [facility] Start: 1990 Sex Assigned At Not on file [facility] Start: 05-04-2022 End: 12-19-2023 Tobacco smoking status [facility] Tobacco smoking consumption unknown [facility] Start: 04-24-2022 End: 05-04-2022 Exposure to SARS-CoV-2 (event) Not sure [facility] Start: 10-29-2023 End: 02-24-2025 Gender identity Not on file [facility] Tobacco smoking status No Smokin g Status Entered [facility] Start: 10-29-2023 End: 02-24-2025 History of Social function [facility] Work Phone: Has the [employer], or [employer] threatened to shut off services in your home in past 12Mo Patient unable to answer [facility] Work Phone: How often to you hav e a drink containing alcohol? Never [facility] Work Phone: Start: 07-20-2017 End: 01-26-2025 Sex Male (finding) [facility] Clinical Notes 03-29-2022 to 02-24-2025 Kendra Jaramillo DDS - 02/24/2025 10:00 AM EDTPatient InstructionsDental Procedure Details - Kendra Jaramillo DDS - 02/24/2025 10:00 AM BETI Antonio - 12/02/2024 12:40 PM EDTDischaricardo Instructions Note Date & Type Note Facility 02-24-2025 History of Present illness Narrative Dental Exam 02/24/2025 Mobile Sales Expert Needed: No. Chief Complaint Patient presents with [...] capsule Take 1 capsule by mouth daily. [place] 300 MG capsule TAKE ONE CAPSULE BY [...] an appropriate candidate for sedation within the [facility] clinic setting. As such, we have recommended [...] DDS documented in this encounter [facility] [employer] Work Phone: [...] daily ADDITIONAL RECOMMENDATIONS: documented in this encounter [facility] Work Phone: 02-24-2025 Miscellaneous Notes Was local anesthetic administered? No Refer to assessment note above documented in this encounter [facility] Work Phone: 02-24-2025 manager licensing procedure note Was local anesthetic administered? No Refer to assessment note above [facility] Work Phone: 12-16-2024 Note Outreach Team ([phone]) Contact Details: I did not contact. Pt [...] date (10 year lookback): Not Found [employer] 12-16-2024 Telephone encounter Note Outreach Team ([phone]) Contact Details: I did not contact. Pt [...] Smear date (10 year lookback): Not Found [facility] 12-16-2024 Miscellaneous Notes Outreach Team ([phone]) Contact Details: I did not contact. Pt [...] lookback): Not Found documented in this encounter [facility] 12-02-2024 History of Present illness Narrative Subjective [...] CT scan of the brain 11/03/23 at [facility] that revealed volume loss, especially in the [...] or worsening symptoms. documented in this encounter [facility] 05-21-2024 History of Present illness Narrative Subjective [...] CT scan of the brain 11/03/23 at [facility] that revealed volume loss, especially in the [...] 6 months documented in this encounter [facility] 02-13-2024 Evaluation + Plan note Diagnostic Tests PendingKeppra Lvl 02/13/24Lamotrigine Level 02/13/24 [facility] 01-11-2024 Telephone encounter Note Jessica from [facility] [phone] is caller. She states was originally told [...] needs at present time. Cris Dinh, RN [facility] 01-11-2024 Miscellaneous Notes Jessica from [facility] [phone] is caller. She states was originally told [...] Cris Dinh, RN documented in this encounter [facility] 12-28-2023 Hospital Discharge instructions Benjamín Guo - 12/28/2023 2:17 PM EDT PERIOPERATIVE DISCHARGE/HOME-GOING INSTRUCTIONS ANESTHESIA - GENERAL (ADULT) If a problem arises, you may contact your physician by calling [phone] and asking for the resident clinical education academic coordinator for Dental service. Special Care Needs: Activity: [...] sent through Care Everywhere.Tooth Extraction Discharge Instructions ([place] Islander)documented in this encounter [facility] 12-28-2023 History and physical note Surgical Attestation: [...] possible Mari Traore DMD 12/28/2023 10:09 AM [facility]: 12-28-2023 Note Surgical Attestation : [...] Mari Traore DMD 12/28/2023 10:09 AM [facility]-28[facility] History and physical note Surgical [...] 12/28/2023 10:09 AM documented in this encounter [facility] 12-28-2023 Miscellaneous Notes Brief Operative Note PHE OR 3 Johnny Devine 33 year old male Surgical Contact Serial Number: [id number] Preoperative Diagnosis: Pre-op Diagnosis * Caries [K02.9] Moderate intellectual disability [F79] Postoperative Diagnosis: Moderate intellectual disability [F79] Procedures: Comprehensive exam [17394] Full mouth X-ray [ 43005] Extractions [40185] Restorations [94000] Prophy 49689] Fluoride treatment [95253] Surgeon(s): Surgeon(s): Mari Traore DMD Staff: Instructional Support Services Director Nurse: Henrietta Johnson Anesthesia: General Anesthesia Staff: Masters, Selena R., BAR TENDER-CUSTOMER SERVICE VOICE Specimen(s): * No specimens in log * [...] disability[F79] @ENCORD@ Surgeon: Dr. Mari Traore DMD Executive Recruiter Surgeon: Reema Whiting DDS Anesthesia: General- Nasal [...] 4 mg/0.1 mL nasal liquid Use 1 [place] in one nostril (alternate sides) as needed [...] were discussed with the patient and/or legal merchandiser retail representative. The risks, benefits and alternatives were reviewed. Questions regarding blood transfusions were answered. The patient /or the patient s legal merchandiser retail representative agree with the plan for transfusion of blood and/or blood components. documented in this encounter [facility] 12-28-2023 Surgery Postoperative evaluation and management note Brief Operative Note PHE OR 3 Johnny Devine 33 year old male Surgical Contact Serial Number: [id number] Preoperative Diagnosis: Pre-op Diagnosis * Caries [K02.9] Moderate intellectual disability [F79] Postoperative Diagnosis: Moderate intellectual disability [F79] Procedures: Comprehensive exam [82187] Full mouth X-ray [ 68557] Extractions [24156] Restorations [33203] Prophy 60325] Fluoride treatment [82438] Surgeon(s): Surgeon(s): Mari Traore DMD Staff: Instructional Support Services Director Nurse: Henrietta Johnson Anesthesia: General Anesthesia Staff: Selena Cmaacho APRN-VANNESA Specimen(s): * No specimens in log [...] No, Clinical indication for admission: Dr. Mair Traore DMD was present in the OR for the critical portion of the procedure and procedure sign-out. Signed by Reema Whiting DDS 12/28/2023 1;48 pm [facility] 12-28-2023 Surgery Surgical operation note Surgical Case Number Data Unavailable Operating Room Data Unavailable Preoperative Diagnosis(es): Pre-op Diagnosis * Caries [K02.9] Moderate intellectual disability [F79] Postoperative Diagnosis(es): Moderate intellectual disability[F79] @ENCORD@ Surgeon: Dr. Mari Traore DMD Executive Recruiter Surgeon: Reema Whiting DDS Anesthesia: General- Nasal [...] 4 mg/0.1 mL nasal liquid Use 1 [place] in one nostril (alternate sides) as needed [...] procedure. Reema Whiting DDS 12/28/2023 1:53 pm [facility] 12-28-2023 Progress note Formatting of t his note is different from the original. Blood Attestation: ATTESTATION OF INFORMED CONSENT FOR BLOOD: The transfusion of blood and/or blood components were discussed with the patient and/or legal merchandiser retail representative. The risks, benefits and alternatives were reviewed. Questions regarding blood transfusions were answered. The patient /or the patient s legal merchandiser retail representative agree with the plan for transfusion of blood and/or blood components. [facility] 12-28-2023 History of Present illness Narrative Patient takes his seizure medication with pudding, facility held them today for dental surgery. Caregiver brought capsules with them to pre-op. Per Dr. Saldivar, divalproex 125 mg x 4 capsules (500 mg) were opened and sprinkles given to patient with 50 mL of water in pre-op. 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 MB cusp tip was visualized upon extraction of #17, but well encased in bone and would not be exposed to the oral cavity following healing of the extraction site. Preoperative Diagnosis(es): Pre-op Diagnosis * Caries [K02.9] Moderate intellectual disability [F79] Postoperative Diagnosis(es): Moderate intellectual disability[F79] Surgeon: Dr. Mari Traore DMD Executive Recruiter Surgeon: Reema Whiting DDS Anesthesia: General- Nasal [...] of surgery: Stable documented in this encounter [facility] 12-21-2023 Evaluation note Addendum 12/21/2023- Caregiver @ [facility] called to relay that patient [...] Kiko VASQUEZ RN updated nursing staff @ [facility]. [facility] 12-21-2023 Miscellaneous Notes Addendum 12/21/2023- Caregiver @ [facility] facility called to relay that patient unable [...] Kiko VASQUEZ RN updated nursing staff @ [facility]. Patient was identified by name and date of . Jaswinderlary Arredondo Patient at risk for falls:No Falls Risk protocol implemented: N/A documented in this encounter [facility] 12-19-2023 Instructions Ling Coffman APRN-COLLATERAL ANALYST - 12/19/2023 11:26 AM EDT On the [...] for pain. Please hold all Vitamin E, [place] 3, fish oil and herbal supplements for 1 week prior to surgery. Please use this LIST to prepare for your surgery/procedure: ? Assume that any lab or testing done during your Pre-admission testing appointment is within normal limits unless otherwise contacted. ? Expect a call from [employer] one business day prior to surgery for [...] your Preparing for Your Surgery/Procedure booklet or [email or web address] if you have questions. Contact the Pre-Admission Testing department at [phone] or your surgeon's office with any questions [...] stay with you after surgery. Please call [facility] [employer] if you need transportation assistance or have concerns about going home [phone]. ? SLEEP APNEA PATIENTS: Bring your sleep apnea machine and mask. ? PLEASE BE ON TIME. A late arrival may result in the cancellation/ delay of your surgery. [facility]; it is our pleasure to care for you documented in this encounter [facility] 12-19-2023 Instructions Shanna Sauceda RN - 12/19/2023 11:26 AM EDT [facility] staff: Since patient is unable to take [...] for pain. Please hold all Vitamin E, [place] 3, fish oil and herbal supplements for 1 week prior to surgery. Please use this LIST to prepare for your surgery/procedure: ? Assume that any lab or testing done during your Pre-admission testing appointment is within normal limits unless otherwise contacted. ? Expect a call from [employer] one business day prior to surgery for [...] your Preparing for Your Surgery/Procedure booklet or [email or web address] if you have questions. Contact the Pre-Admission Testing department at [phone] or your surgeon's office with any questions [...] stay with you after surgery. Please call [employer] if you need transportation assistance or have concerns about going home [phone]. ? SLEEP APNEA PATIENTS: Bring your sleep apnea machine and mask. ? PLEASE BE ON TIME. A late arrival may result in the cancellation/ delay of your surgery. Thank you for choosing [facility]; it is our pleasure to care for you documented in this encounter [facility] 12-19-2023 Evaluation note Patient was identified by name and date of . Jaswinder Arredondo Patient at risk for falls:No Falls Risk protocol implemented: N/A [facility] 12-19-2023 Miscellaneous Notes Patient was identified by name and date of . Jaswinder Arredondo Patient at risk for falls:No Falls Risk protocol implemented: N/A documented in this encounter [facility] 12-19-2023 History of Present illness Narrative Images from the original note were not included. Pre-Admission Testing Consultation Johnny Devine, [id number] 33 year old Male 12/19/2023 Consult placed to [facility] by Mari Traore, due to significant PMH of Hypothyroidism , Bipolar, Autistic disorder ,Epilepsy [facility] Triage Risk Score Total Score: [...] intervention warranted . Patient with Lamaar from [facility] during this appointment Patient is here for pre-admission optimization and education prior to surgery. RECENT ILLNESS: Serious illness or hospitalization within the last six months. Yes 10/28/2023 HOSPITAL COURSE: Johnny Devine is a 33 year old male with developmental delay and no PSH who presents as a transfer to [facility] from [facility] for further management of small bowel obstruction. Given patient's baseline cognitive status, NGT difficult to maintain. He was admitted to [facility] under care of general surgery and was taken to the OR the following morning for diagnostic laparoscopy. Intra-operative findings demonstrated no adhesins, no apparent hernias, dilated small/large bowel, redundant sigmoid c/f volvulus, easily reduced. After recovering in the PACU, he was taken to the [facility] with NGT in place. Patient arrived to [facility] with 8 Fr pediatric haskins catheter [...] in home regimen. Stable for discharge to jail. Neurology Recommendations on Discharge: - Discharge on [...] DENTAL RESTORATIONS; Surgeon: Harpreet Mccurdy DDS; Location: [facility]; Service: Dental Past [...] DATA: CBC @ [facility] 11/07/2023 CBC Order: [id number] Component Ref Range & Units 1 mo [...] 0418 [id number] [id number] Comment: The [place] Diabetes Association (ADA) provides guidance for cutoff [...] Standards of Medical Care in Diabetes 2016, [place] Diabetes Association. Diabetes Care. 2016.39(Suppl 1). 8 0.70 8.2 11/06/23 0943 [id number] 112 18 83 Comment: The [place] Diabetes Association (ADA) provides guidance for cutoff [...] Standards of Medical Care in Diabetes 2016, [place] Diabetes Association. Diabetes Care. 2016.39(Suppl 1). 6 0.69 8.9 11/05/23 0418 142 112 23 96 Comment: The [place] Diabetes Association (ADA) provides guidance for cutoff [...] Standards of Medical Care in Diabetes 2016, [place] Diabetes [employer]. Diabetes Care. 2016.39(Suppl 1). 5 0.64 7.6 11/04/23 0826 145 112 24 79 Comment: The [place] Diabetes Association (ADA) provides guidance for cutoff [...] Standards of Medical Care in Diabetes 2016, [place] Diabetes [employer]. Diabetes Care. 2016.39(Suppl 1). 4 [...] 1:39 PM 12/19/2023 documented in this encounter [facility] 12-19-2023 History of Present illness Narrative Images from the original note were not included. Pre-Admission Testing Consultation Johnny Devine, [id number] 33 year old Male 12/19/2023 Consult placed to [facility] by Mari Traore, due to significant PMH of Hypothyroidism , Bipolar, Autistic disorder ,Epilepsy [facility] Triage Risk Score Total Score: 3 1 Patient has history of arrhythmia. 2 Patient is on more than 2 antihypertension medications. Jhonny Devine is scheduled for (Bilateral) DENTAL RESTORATIONS [...] intervention warranted . Patient with Lamaar from [facility] facility during this appointment Patient is here for pre-admission optimization and education prior to surgery. RECENT ILLNESS: Serious illness or hospitalization within the last six months. Yes 10/28/2023 HOSPITAL COURSE: Johnny Devine is a 33 year old male with developmental delay and no PSH who presents as a transfer to [facility] from [facility] ED for further management of small bowel obstruction. Given patient's baseline cognitive status, NGT difficult to maintain. He was admitted to the [facility] under care of general surgery and was taken to the OR the following morning for diagnostic laparoscopy. Intra-operative findings demonstrated no adhesins, no apparent hernias, dilated small/large bowel, redundant sigmoid c/f volvulus, easily reduced. After recovering in the PACU, he was taken to the [facility] with NGT in place. Patient arrived to [facility] with 8 Fr pediatric haskins catheter [...] in home regimen. Stable for discharge to jail. Neurology Recommendations on Discharge: - Discharge on [...] DENTAL RESTORATIONS; Surgeon: Harpreet Mccurdy DDS; Location: [facility]; Service: Dental Past [...] DATA: CBC @ [facility] 11/07/2023 CBC Order: [id number] Component Ref Range & Units 1 mo [...] 0418 [id number] 91 Comment: The [place] Diabetes Association (ADA) provides guidance for cutoff [...] Standards of Medical Care in Diabetes 2016, [place] Diabetes [employer]. Diabetes Care. 2016.39(Suppl 1). 8 0.70 8.2 11/06/23 0943 146 112 18 83 Comment: The [place] Diabetes Association (ADA) provides guidance for cutoff [...] Standards of Medical Care in Diabetes 2016, [place] Diabetes [employer]. Diabetes Care. 2016.39(Suppl 1). 6 0.69 8.9 11/05/23 0418 142 112 23 96 Comment: The [place] Diabetes Association (ADA) provides guidance for cutoff [...] Standards of Medical Care in Diabetes 2016, [place] Diabetes [employer]. Diabetes Care. 2016.39(Suppl 1). 5 0.64 7.6 11/04/23 0826 145 112 24 79 Comment: The [place] Diabetes Association (ADA) provides guidance for cutoff [...] Standards of Medical Care in Diabetes 2016, [place] Diabetes [employer]. Diabetes Care. 2016.39(Suppl 1). 4 [...] 1:39 PM 12/19/2023 documented in this encounter [facility] 12-19-2023 Note Pre-Admission Testin g Consultation Johnny Devine, [id number] 33 year old Male 12/19/2023 Consult placed [...] intervention warranted . Patient with Lamaar from [facility] facility during this appointment Patient is here for pre-admission optimization and education prior to surgery. RECENT ILLNESS: Serious illness or hospitalization within the last six months. Yes 10/28/2023 HOSPITAL COURSE: Johnny Devine is a 33 year old male with developmental delay and no PSH who presents as a transfer to [facility] from [facility] ED for further management of small bowel obstruction. Given patient's baseline cognitive status, NGT difficult to maintain. He was admitted to the [facility] under care of general surgery and was taken to the OR the following morning for diagnostic laparoscopy. Intra-operative findings demonstrated no adhesins, no apparent hernias, dilated small/large bowel, redundant sigmoid c/f volvulus, easily reduced. After recovering in the PACU, he was taken to the [facility] with NGT in place. Patient arrived to [facility] with 8 Fr pediatric haskins catheter [...] in home regimen. Stable for discharge to jail. Neurology Recommendations on Discharge: - Discharge on [...] SERVICES; Ser (more content not included)... [employer] 12-03-2023 Note HNO ID: [id number] Author: OSCAR RUIZ MD Service: ? Author [...] will be discharged from ongoing urologic care. sOcar Ruiz MD [facility] 12-03-2023 Note Patient Outreach (UR OLMN) JOHNNY DEVINE ([id number]) 1990 M Date Time Provider Department 12/03/23 RAFAEL GIRALDO During your visit today, we recorded the following information about you: Allergies As of Date: 12/03/2023 Noted Allergy Reaction BIAXIN (CLARITHROMYCIN) 05/04/2022 14 - Other: See Comments Comments: caregiver does not know Date Reviewed: 12/03/2023 Reviewed by: Sukhdeep Barton OCCA - Fully Assessed Visit Diagnosis:Screening for genitourinary condition [Z13.89] Order(s):URINALYSIS, REFLEX MICROSCOPIC [[id number]] Order #: [id number] Prescriptions as of 12/06/2023 - cloNIDine HCl [...] 12/03/2023 Noted Resolved SBO (small bowel obstruction) ([facility]) [K56.609] 10/28/2023 10/31/2023 Bipolar disorder (HCC) [F31.9] 09/16/2018 Hypothyroidism [E03.9] 09/16/2018 Obsessive-compulsive disorder [F42.9] 09/16/2018 Moderate intellectual disability [F71] 09/16/2018 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 Author Type: Nurse Practitioner Type: Progress Notes Filed: 11/28/2023 10:19 Note Text: [facility] Clinic Date: November 28, 2023 Johnny Devine 33 year old male CHIEF COMPLAINT: Patient presents for follow up from surgery. HPI: Here for follow up after diagnostic laparotomy on 10/29/[address] Robin. Patient also underwent a dorsal slit procedure with urology on 10/30/2023 for paraphimosis. Patient with a import/export agent today to discuss his postoperative course since [...] for further surgery discussion Victoria Sanchez, MSN, BAR TENDER-COLLATERAL ANALYST November 28, 2023 [facility] 11-28-2023 History of Present illness Narrative [facility] Clinic Date: November 28, 2023 Johnny Devine 33 year old male CHIEF COMPLAINT: Patient presents for follow up from surgery. HPI: Here for follow up after diagnostic laparotomy on 10/29/[address] Robin. Patient also underwent a dorsal slit procedure with urology on 10/30/2023 for paraphimosis. Patient with a import/export agent today to discuss his postoperative course since [...] for further surgery discussion Victoria Sanchez, MSN, BAR TENDER-COLLATERAL ANALYST November 28, 2023 documented in this encounter [facility] 11-28-2023 Nurse Note What is the reason for your visit today? Post op Who is your referring physician? Dr. Sanchez Are you having poor oral intake? NO Have you had unintentional weight loss of 15 lbs/7 Kg in the last 3-6 months? NO Bowels: regular Wound: clean & dry Temperature: No Drains: No documented in this encounter [facility] 11-12-2023 Miscellaneous Notes Called care facility and [...] Cris Dinh, MIRIAM documented in this encounter [facility] 11-07-2023 Note HNO ID: [id number] Author: HERMAN SALOMON, RN Service: Care Management Author Type: Registered Nurse Type: Care Mgt Progress Note Filed: 11/07/2023 14:56 Note Text: CARE MANAGEMENT DISCHARGE NOTE SERVICE DATE: November 07, 2023 SERVICE TIME: 2:56 PM Admission Date: 10/28/2023 LOS: 10 days Discharge Arrangement Discharge Arrangement: [facility] Services Arranged Medical Services: Other: See Comment (no services indicated) Caregiver Assessment Caregiver is ready, willing and able to meet the patient's needs as recommended by the inter-professional team: Yes Name of Caregiver: Kristofer Pillai Transportation Arrangements Transportation Arrangements: Car Destination: [facility] Additional Information: Patient d/c ready to [facility] with no skilled needs identified. Patient and bedside RN aware of plan. senior living to transport patient home via private auto. SIGNATURE: Herman Salomon RN PATIENT NAME: Johnny Devine DATE: November 07, 2023 TIME: 2:55 PM CONTACT #: [phone] [facility] 11-07-2023 Note HNO ID: [id number] Author: GIA MULLER MD Service: General Surgery [...] * DORSAL SLIT FORESKIN EXCEPT - General [facility] 11-07-2023 Note HNO ID: [id number] Author: MAYANK READ, RN Service: Nursing Author Type: Registered Nurse Type: Nursing Progress Note Filed: 11/07/2023 09:25 Note Text: Paged primary team of low BP. [facility] 11-06-2023 Note HNO ID: [id number] Author: ALEXANDRA CHAIREZ MD Service: General Surgery [...] Chairez MD General Surgery Resident Екатерина(Jacob No): [phone] Grundfest(Boy Alcaraz Petro): [phone] After 6PM + Weekends: [phone] INTERVAL EVENTS / PERTINENT REVIEW OF SYSTEMS: [...] * DORSAL SLIT FORESKIN EXCEPT - General [facility] 11-06-2023 Note HNO ID: [id number] Author: BERNARDA SUE MD Service: Neurology General [...] DATE: November 06, 2023 TIME: 12:26 AM [facility] 11-05-2023 Note HNO ID: [id number] Author: LEEANN TELLES MD Service: General Surgery [...] as appropriate, non-distended Leeann Telles MD PGY1 [facility] 11-05-2023 Note HNO ID: [id number] Author: JUAQUIN KRISHNAMURTHY RN Service: Nursing Author [...] to bedside, Valium ordered at this time. [facility] 11-05-2023 Note HNO ID: [id number] Author: HERMAN SALOMON RN Service: Care Management Author Type: Registered Nurse Type: Care Mgt Progress Note Filed: 11/05/2023 11:21 Note Text: CARE MANAGEMENT PROGRESS NOTE SERVICE DATE: 11/05/2023 SERVICE TIME: 11:20 AM LOS: 8 days [place] Explained: [place] Given: No Reason Not Given: No placements necessary Anticipated # of Days Until Discharge: 4 Needs Prior to Discharge: Needs Prior to Discharge: To Be Determined Post-Acute Discharge Plan: Patient from [facility]. Plan is to return at discharge. sales service supervisor is Magi [phone]. Per Magi, she will provide transport at discharge. Magi is requesting an abdominal binder at discharge due to patient's history of self-injurious behavior. 33 year old male POD #7 diagnostic laparoscopy. Patient is non-verbal, developmental delay and lives in jail. No skilled needs anticipated. SIGNATURE: Herman Salomon RN PATIENT NAME: Johnny Devine DATE: November 05, 2023 TIME: 11:19 AM PAGER/CONTACT #: [phone] [facility] 11-05-2023 Note HNO ID: [id number] Author: CONNIE CAICEDO MD Service: Neurology General [...] Dr. Almanzar. Connie Caicedo MD 5:49 PM [facility] 11-05-2023 Note HNO ID: [id number] Author: ALEXANDRA CHAIREZ MD Service: General Surgery [...] Chairez MD General Surgery Resident Екатерина(Jacob No): [phone] Grundfest(Kieran, Boy, Misti): [phone] After 6PM + Weekends: [phone] INTERVAL EVENTS / PERTINENT REVIEW OF SYSTEMS: [...] * DORSAL SLIT FORESKIN EXCEPT - General [facility] 11-04-2023 Note HNO ID: [id number] Author: ALEXANDRA CHAIREZ MD Service: General Surgery [...] Neuro: continue lorazepam TID per neurology(clarified with [facility] and patient has been getting scheduled lorazepam [...] Chairez MD General Surgery Resident Екатерина(Jacob No): [phone] Grundfest(Kieran BoyMisti): [phone] After 6PM + Weekends: [phone] INTERVAL EVENTS / PERTINENT REVIEW OF SYSTEMS: [...] * DORSAL SLIT FORESKIN EXCEPT - General [facility] 11-03-2023 Note HNO ID: [id number] Author: ZAIRA ROBERT MD Service: General Surgery [...] (Res) November 03, 2023, 10:29 AM P: [phone] INTERVAL EVENTS / PERTINENT REVIEW OF SYSTEMS: [...] * DORSAL SLIT FORESKIN EXCEPT - General [facility] 11-03-2023 Note HNO ID: [id number] Author: LYLE TRINIDAD RN Service: ? Author Type: Registered Nurse Type: Progress Notes Filed: 11/03/2023 22:32 Note Text: This senior medical writer was called by another nurse that pt had a witnessed 20 seconds of seizure episode. AMET called and team notified and orders given. [facility] 11-02-2023 Note HNO ID: [id number] Author: LEEANN TELLES MD Service: General Surgery [...] as appropriate, non-distended Leeann Telles MD PGY1 [facility] 11-02-2023 Note HNO ID: [id number] Author: HERMAN SALOMON RN Service: Care Management Author Type: Registered Nurse Type: Care Mgt Progress Note Filed: 11/02/2023 11:43 Note Text: CARE MANAGEMENT WEEKEND PLANNING NOTE DISCHARGE OR POSSIBLE DISCHARGE Date/Time: TBD Disposition: [facility] Transport: Car /Magi Other Concerns: Patient from [facility]. Plan is to return at discharge. sales service supervisor is Magi [phone]. Per Magi, she will provide transport at discharge. She will need to be contacted if patient ready to discharge over the weekend. Magi is requesting an abdominal binder at discharge due to patient's history of self-injurious behavior. 33 year old male POD #4 diagnostic laparoscopy. Patient is non-verbal, developmental delay and lives in jail. Weekend Salon Sales Consultant Pager #: Please see Treatment Team for Care Management Weekend/Holiday coverage. SIGNATURE: Herman Salomon RN PATIENT NAME: Johnny Devine DATE: November 02, 2023 TIME: 11:42 AM PAGER/CONTACT #: [phone] [facility] 11-02-2023 Note HNO ID: [id number] Author: FRANCK MAGDALENO MD Service: General Surgery [...] , appreciate Recs (below); haskins out at [facility], f/u TOV - Recommend applying vaseline PRN [...] Andrews MD Acute Care Surgery Resident PAGER [phone] INTERVAL EVENTS / PERTINENT REVIEW OF SYSTEMS: [...] * DORSAL SLIT FORESKIN EXCEPT - General [facility] 11-01-2023 Note HNO ID: [id number] Author: ANA LUISA FARR MD Service: General [...] Farr MD Acute Care Surgery Resident PAGER [phone] INTERVAL EVENTS / PERTINENT REVIEW OF SYSTEMS: [...] * DORSAL SLIT FORESKIN EXCEPT - General [facility] 10-31-2023 Note HNO ID: [id number] Author: ANA LUISA FARR MD Service: General [...] Farr MD Acute Care Surgery Resident PAGER [phone] INTERVAL EVENTS / PERTINENT REVIEW OF SYSTEMS: [...] Drain Duration Indwelling Urinary Catheter 10/30/23 0811 [facility] [place]ins 10 Fr 1 day SURGERY/PROCEDURE: Procedure(s) and Anesthesia Type: * DORSAL SLIT FORESKIN EXCEPT - General [facility] 10-31-2023 Note HNO ID: [id number] Author: HEAVEN CAMACHO MD Service: Urology Author [...] clinical indicators: x Hypophosphatemia Other, please specify [facility] 10-31-2023 Note HNO ID: [id number] Author: BEATRIZ MEHTA MD Service: General Surgery [...] Mehta MD General Surgery Resident General Surgery: [id number] On nights (6 pm to 6 am) and on Weekends/Holidays, please page the on-call pager: [phone] 10/31/23 2:39 AM [facility] 10-31-2023 Note HNO ID: [id number] Author: JUAQUIN KRISHNAMURTHY RN Service: Nursing Author Type: Registered Nurse Type: Progress Notes Filed: 10/31/2023 01:48 Note Text: Messaged Night team Dr. Mehta about haskins drainage turning bloody. Patient is asleep and comfortable [facility] 10-30-2023 Note HNO ID: [id number] Author: JEREMIE JOAQUIN MD Service: ? Author [...] October 30, 2023 TIME: 8:11 AM CSN: [id number] [facility] 10-30-2023 Note HNO ID: [id number] Author: JEREMIE JOAQUIN MD Service: ? Author Type: Anesthesiologist Type: Anesthesia Procedure Notes Filed: 10/30/2023 11:59 Note Text: ANESTHESIOLOGY PROCEDURE NOTE Airway General Information Procedure Start Time/Medication Administration: 10/30/2023 7:46 AM Patient location during procedure: OR Timeout Performed Pre-procedure: timeout performed Consent Obtained: Yes Patient identity confirmed: arm band, care produce service team member and patient Staffing Anesthesiologist: Jeremie [...] Successful intubation technique: video laryngoscopy Devices used: [employer] Endotracheal tube insertion site: oral Blade size: [...] October 30, 2023 TIME: 7:58 AM CSN: [id number] [facility] 10-30-2023 Note HNO ID: [id number] Author: FRANCK MAGDALENO MD Service: General Surgery [...] Andrews MD Acute Care Surgery Resident PAGER [phone] INTERVAL EVENTS / PERTINENT REVIEW OF SYSTEMS: [...] <1 day Indwelling Urinary Catheter 10/30/23 0130 [facility] 8 Fr <1 day SURGERY/PROCEDURE: Procedure(s) and Anesthesia Type: * DORSAL SLIT FORESKIN EXCEPT - General [facility] 10-29-2023 Note HNO ID: [id number] Author: HERMAN SALOMON RN Service: Care Management [...] by: Per Department Practice Potential Transition Plans [facility]/Supervised Living Advance Directives Current Advance Directive: Other Document: See Comment (Legal guardian) In Chart: Yes Up To Date and Valid: Yes Current Living Arrangements and Support Lives with: Other person(s) [facility] Type of Residence: [facility] Care Facility Name: [facility] Support: Home care staff, Family members How do you manage to accomplish the following: Independent: Ambulation Dependent: Bathe/Shower;Dress;Meals/Meal Prep;Going to the bathroom;Medication Management;Transportation to appointments/community Current Services/Equipment Current Post-Acute Service(s): None [place] of Choice Explained: [place] of [place] Given: No Reason Not Given: No placements necessary Are you interested in bedside delivery of your medications? No Discharge Planning Participant(s): Other person(s);Guardian Name/Relationship: Magi/[employer] Patient/Family Comments: Caregiver Assessment: Caregiver is ready, willing and able to meet the patient's needs as recommended by the inter-professional team: Yes Name of Caregiver: [facility] Transport at Discharge: Transportation Arrangements: Car Destination: Home Needs Prior to Discharge: Needs Prior to Discharge: To Be Determined Post-Acute Discharge Plan: 33 year old male POD #0 diagnostic laparoscopy. Patient is non-verbal, developmental delay and lives in jail. CM met with patient's legal guardian Delbert and group chief operator Magi at bedside. Plan is to return to jail at discharge. Per Magi [phone]. [phone], she will provide transport. Magi is requesting an abdominal binder at discharge due to patient's history of self-injurious behavior. CM will continue to follow for transitional care needs. SIGNATURE: Herman Salomon RN PATIENT NAME: Johnny Devine DATE: October 29, 2023 TIME: 4:00 PM CONTACT #: [phone] [facility] 10-29-2023 Note HNO ID: [id number] Author: KENZIE MORE APRN.CUSTOMER SERVICE VOICE Service: ? Author Type: Nurse Aerospace Stress Engineer Type: Anesthesia Procedure Notes Filed: 10/29/2023 10:18 Note Text: ANESTHESIOLOGY PROCEDURE NOTE Airway General Information Procedure Start Time/Medication Administration: 10/29/2023 10:00 AM Patient location during procedure: OR Timeout Performed Pre-procedure: timeout performed Consent Obtained: Yes Patient identity confirmed: arm band, care produce service team member and family Staffing CUSTOMER SERVICE VOICE: Kenzie More APRN.CUSTOMER SERVICE VOICE Indications and Patient Condition Indications for airway management: anesthesia Preoxygenated: yes anesthesia circuit Method: rapid sequence Difficult Mask: No Final Airway Details Final airway type: endotracheal airway Final Endotracheal Airway: ETT Cuffed: yes Successful intubation technique: video laryngoscopy Devices used: [employer] Endotracheal tube insertion site: oral Blade: Raj Blade size: #4 ETT size (mm): 7.5 Placement verified by: capnometry Cormack-Lehane Classification: grade I - full view of glottis Number of attempts at approach: 1 Failed airway: no Unrecognized esophageal intubation: no Airway not difficult SIGNATURE: Kenzie More APRN.CRNA PATIENT NAME: Johnny Devine DATE: October 29, 2023 TIME: 10:17 AM CSN: [id number] [facility] 10-29-2023 Note HNO ID: [id number] Author: ANA LUISA FARR MD Service: General [...] Farr MD Acute Care Surgery Resident PAGER [phone] INTERVAL EVENTS / PERTINENT REVIEW OF SYSTEMS: [...] Anesthesia Type: * EXPLORATORY LAPAROTOMY - General [facility] 10-28-2023 History of Past i llness Narrative Problem Noted Date Diagnosed Date Resolved Date SBO (small bowel obstruction) 10/28/2023 10/31/2023 documented as of this encounter (statuses as of 11/12/2023) [facility]20[facility] History of Past illness Narrative* Problem Noted Date Diagnosed Date Resolved Date SBO (small bowel obstruction) 10/28/2023 10/31/2023 documented as of this encounter (statuses as of 11/29/2023) [facility]20[facility] History of Past illness Narrative* Problem Noted Date Diagnosed Date Resolved Date SBO (small bowel obstruction) 10/28/2023 10/31/2023 documented as of this encounter (statuses as of 12/04/2023) [facility]-10[facility]2024 History of Past illness Narrative* Problem Noted Date Diagnosed Date Resolved Date SBO (small bowel obstruction) 10/28/2023 10/31/2023 documented as of this encounter (statuses as of 12/06/2023) [facility]11-27-2023 Hospital Discharge instructions* Discharge Instructions* Yobany Smith [...] be sent through Care Everywhere. * Bradycardia ([place] Island[place]) documented in this [id number] Emergency department Note* Leila Cifuentes RN - 07/16/2023 8:01 AM EST Permission treat given from Cate legal guardian [id number] Emergency department Note* Leila Cifuentes RN - 07/16/2023 8:01 AM EST Permission treat given from Cate legal guardian documented in this [id number] Evaluation + Plan note Diagnostic Tests Pending * [place] Level 07/04/23 [facility]11-07-2023 Telephone encounter Note* Telephone Encounter - Shanna Sauceda RN - 06/26/2023 11:14 AM EST Informed Consent for dental surgery & Anesthesia consent obtained and scanned into [employer]. Scheduled for surgery 07/16/2023. [id number] Miscellaneous Notes* Telephone Encounter - Shanna Sauceda RN - 06/26/2023 11:14 AM EST Informed Consent for dental surgery & Anesthesia consent obtained and scanned into [employer]. Scheduled for surgery 07/16/2023. documented in this [id number] Evaluation note* PSE Appt H&P - Lacey Wilson MD - 06/22/2023 3:10 PM EDT Presurgical Evaluation (Pre-Admission Testing) Consultation Johnny Devine, [id number] 32 year old Male 06/22/2023 Consult placed [...] DENTAL RESTORATIONS; Surgeon: Harpreet Mccurdy DDS; Location: [facility]; Service: Dental ANESTHESIA [...] - referring and communicating with other health adult care manager (when not separately reported) - documenting clinical information in the electronic or other health record - independently interpreting results (not separately reported) and communicating results to the patient/family/caregiver - care coordination (not separately reported). Interviewer signature: Lacey Wilson MD 3:10 PM 06/22/2023 [id number] Miscellaneous Notes* PSE Appt H&P - Lacey Wilson MD - 06/22/2023 3:10 PM EDT Presurgical Evaluation (Pre-Admission Testing) Consultation Johnny Devine, [id number] 32 year old Male 06/22/2023 Consult placed [...] DENTAL RESTORATIONS; Surgeon: Harpreet Mccurdy DDS; Location: [facility] [place]; Service: Dental ANESTHESIA REVIEW OF SYSTEMS: Eyes/ENT: [...] - referring and communicating with other health adult care manager (when not separately reported) - documenting clinical information in the electronic or other health record - independently interpreting results (not separately reported) and communicating results to the patient/family/caregiver - care coordination (not separately reported). Interviewer signature: Lacey Wilson MD 3:10 PM 06/22/2023 documented in this [id number] Miscellaneous Notes* [place] En[place] [facility] [place]18/20[place] 3:18 PM EDT Cate, aunt, was leaving Dr Morales a message: At this time, the family would like to hold off on cataract surgery. Fyi * Telephone Encounter - Grupo Morales MD - 05/18/2022 2:23 PM EDT Called today and yesterday after clinic to discuss. No answer, left msg to call back and leave a message. * Telephone Encounter - [employer] - 05/17/2022 3:31 PM EDT Pt's aunt returning a call to Dr. Morales to discuss eye care for Johnny. Please try to reach her again at [phone] (Cate Tin) [facility] Miscellaneous Notes* Telephone Encounter - [employer] Sec - 05/08/2022 9:01 AM EDT Nurse from [facility] where he [facility] called for [facility] for his file. Attn: Melanie Pickard [phone]. Surgery schedulers name and # was provided. documented in this encounter[facility]-2022 Miscellaneous Notes* Telephone Encounter - Grupo Morales [...] ADLs currently. He currently lives in a jail and has a significant history of self-injurious behaviors including banging his head on things and punching his eyes. She believes cataract tarun result of trauma, and I agree with her. These behaviors still happen on a weekly basis, and whilethere's 12/03 supervision at the jail, he has a lot of private time [...] week. Grupo Morales MD documented in this [facility] History of Present illness Narrative* Angel Sexton [...] 04, 2022 10:56 AM documented in this encounter[facility]-2022 Telephone encounter Note * Telephone Encounter - Jose Miguel Jones - 03/29/2022 1:12 PM EDT Care Gaps Scheduling Contact Details: I did not contact pt. Encounter 07/15/21 indicates pt does not see providers at [facility] at this time. Health Maintenance Due: Medicare AWV / PCP Visit: Due Eye Exam: Not due Foot Exam: Not due Annual Blood Work: Due Mammogram: N/A FIT: Not due [id number] Miscellaneous Notes* Telephone Encounter - Jose Miguel Jones - 03/29/2022 1:12 PM EDT Care Gaps Scheduling Contact Details: I did not contact pt. Encounter 07/15/21 indicates pt does not see providers at [facility] at this time. 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 Other and combined forms of senile cataract [facility] Diagnosis Caries- Primary Unspecified dental caries [...] aftercare following surgery [facility] Phimosis- Primary Redundant prepuce and phimosis [facility] Diagnosis Screening for genitourinary condition Screening for other and unspecified genitourinary condition [facility]* Diagnosis Caries- Primary Unspecified dental caries Pre-op testing- Primary Preoperative examination, unspecified Body mass index (BMI) 31.0-31.9, adult Caries Unspecified dental caries [facility] Diagnosis Sigmoid volvulus (HCC)- Primary Volvulus [facility]* Diagnosis Caries- Primary Unspecified dental [...] documented in this encounter [facility] Work Phone: Evaluation note* Diagnosis Alteration of awareness- Primary [facility] Diagnosis Encounter for dental examination- Primary Dental examination [facility] [facility] Work Phone: Hospital course Narrative No data available for this section [facility] No data available for this section [facility] No data available for this section [facility] Summary Purpose Family History No Family [...] Caries Tio-Harpreet England, DDS [address] [place] [id number] [facility] PRE SURGICAL EVAL [address] [place] [address] Referral ID Status Reason Start Date Expiration Date V isits Requested Visits Authorized [id number] Pending Review 05/25/2023 05/25/2024 1 1 Scheduling Instructions Your surgical team will reach out to you to schedule a preadmission testing appointment. Question Answer Reason for consult? Recommended PSE Risk Score Specialty Diagnoses / Procedures Referred By Johan mcfadden Referred To Contact Radiology Diagnoses Pre-op exam Procedures XR CHEST PA+LAT 2 VIEWS Franc Beyer MD [address] [place] [address] [facility] DIAGNOSTIC RADIOLOGY [address] [phone] Referral ID Status Reason Start Date Expiration Date Visits Re quested Visits Authorized [id number] Closed 06/22/2023 06/21/2024 1 1 Specialty Diagnoses / Procedures Referred By Contac t Referred To Contact Cardiology Diagnoses Bradycardia History of autism Nonverbal Moderate intellectual disability Yobany Smith PA-C [address] [place] [address] S C[facility]Y [facility] [address] [place] [address] Referral ID Status Reason Start Date Expiration Date V isits Requested Visits Authorized [id number] Pending Review 07/16/2023 07/16/2024 3 3 Scheduling Instructions Please call the [facility] at [phone] to schedule an appointment if one was [...] (HCC) Procedures CONSULT TO COLO-RECTAL SURGERY OFFICE/OUTPATIENT [facility] 60 MINUTES Victoria Sanchez APRN.[facility] [address] [phone] Juventino Fairbanks MD [address] [place] [address] Referral ID Status Reason Start Date Expiration Date Visits Requested Visits Authorized [id number] Authorized PCP Requested Referral 12/20/2023 12/19/2024 1 1 Specialty Diagnoses / Procedures Referred By Contac t Referred To Contact Anesthesiology Diagnoses Caries Harpreet Mccurdy DDS [address] [place] [phone] [facility] PRE ADMISSION TESTING [address] [place] [address] Referral ID Status Reason Start Date Expiration Date V isits Requested Visits Authorized [id number] Authorized 10/10/2023 10/10/2024 1 1 Scheduling Instructions [...] PA+LAT 2 VIEWS Franc Beyer MD [address] [place] [address] [facility] DIAGNOSTIC RADIOLOGY [address] [place] [address] Referral ID Status Reason Start Date Expiration Date Visits Re quested Visits Authorized [id number] Closed 06/22/2023 06/21/2024 1 1 Reason Onset Date Comments Pre-surgical Evaluation 06/26/2023 Informed Consent for dental surgery & Anesthesia consent obtained Reason Comments bradycardia Low HR (33) Specialty Diagnoses / Procedures Referred By Contmigdalia t Referred To Contact Ambulatory Surgery Diagnoses Caries Caries [[email or web address]] Procedures UNLISTED PROCEDURE, DENTOALVEOLAR STRUCTURES ANESTHESIA, INTRAORAL PROC, W/BX; NOS DENTAL RESTORATIONS Harpreet Mccurdy, DDS [address] [place] [address] [facility] [address] [place] [address] Phone: [phone] Referral ID Status Reason Start Date Expiration Date Visits Re quested Visits Authorized [id number] 3 3 Reason Comments [employer]ing Cutter - Other Reason Comments Post Op Reason Onset Date Comments Pre-surgical Evaluation 12/25/2023 DD adult dental restorations 12/27 under [facility] at [place]. PAT completed - consent request sent to main - see future encounter for results. PAT RN spoke to patrick Navarro, [place] address, and 0900 arrival time Reason Onset Date Comments Pre-surgical Evaluation 12/25/2023 Anesthes ia Attestaion for dental surgery scanned in media sales executiveemergency medical service manager Diagnoses / Procedures Referred By Contac t Referred To Contact Ambulatory Surgery Diagnoses Caries Caries [[email or web address]] Procedures UNLISTED PROCEDURE, DENTOALVEOLAR STRUCTURES ANESTHESIA, INTRAORAL PROC, W/BX; NOS DENTAL RESTORATIONS Kassidy Mari, DMD [address] [place] [id number] [facility] [address] [place] [phone] Phone: [phone] Referral ID Status Reason Start Date Expiration Date Visits Re quested Visits Authorized [id number] 3 3 Reason Comments Seizures Reason Onset Date Comments Medical Record Review 12/16/2024 Reason Comments New Patient Care Teams (unrecognized sec tion and content) Basting Marker Relationship Specialty Start Date End Date Aileen Corcoran DDS [address] [place], [place] [phone] Resident Dentistry 08/20/20 Basting Marker Relationship Specialty Start Date End Date Aileen Corcoran DDS [address] [place] [address] Resident Dentistry 08/20/20 Basting Marker Relationship Specialty Start Date End Date Aileen Corcoran DDS [address] [place], [place] [phone] Resident Dentistry 08/20/20 Basting Marker Relationship Specialty Start Date End Date Aileen Corcoran DDS [address] [place], [place] [phone] Resident Dentistry 08/20/20 Basting Marker Relationship Specialty Start Date End Date Aileen Corcoran DDS [address] [place] [phone] Resident Dentistry 08/20/20 Basting Marker Relationship Specialty Start Date End Date Aileen Corcoran DDS [address] [place] [phone] Resident Dentistry 08/20/20 Basting Marker Relationship Specialty Start Date End Date Aileen Corcoran DDS [address] [place] [address] Resident Dentistry 08/20/20 Basting Marker Relationship Specialty Start Date End Date RosemarieAileen aquino DDS [address] [place] [address] Resident Dentistry 08/20/20 Basting Marker Relationship Specialty Start Date End Date Aileen Corcoran DDS [address] [place] [address] Resident Dentistry 08/20/20 Basting Marker Relationship Specialty Start Date End Date Aileen Corcoran DDS [address] [place] [address] Resident Dentistry 08/20/20 Basting Marker Relationship Specialty Start Date End Date Aileen Corcoran DDS [address] [place] [phone] Resident Dentistry 08/20/20 Basting Marker Relationship Specialty Start Date End Date RosemarieAileen aquino DDS [address] [place] [phone] Resident Dentistry 08/20/20 Basting Marker Relationship Specialty Start Date End Date RosemarieAileen aquino DDS [address] [place] [phone] Resident Dentistry 08/20/20 Ling Coffman APRN-COLLATERAL ANALYST [address] [place] [phone] [employer] Anesthesiology 01/19/24 Basting Marker Relationship Specialty Start Date End Date Aileen Corcoran DDS [address] [place] [address] Resident Dentistry 08/20/20 Ling CoffmanSAMEER [address] [place] [phone] [employer] Anesthesiology 01/19/24 Source Comments (unrecognize d section and content) In the event this informatio n is protected by the Federal Confidentiality of Alcohol and Drug Abuse Patient Records regulations: The Federal rules restrict any use of the information to criminally investigate or prosecute any alcohol or drug abuse patient.[facility] the event this information is protected by the Federal Confidentiality of Alcohol and Drug Abuse Patient Records regulations: The Federal rules restrict any use of the information to criminally investigate or prosecute any alcohol or drug abuse patient.[facility] Campus[facility] the event this information is protected by the Federal Confidentiality of Alcohol and Drug Abuse Patient Records regulations: The Federal rules restrict any use of the information to criminally investigate or prosecute any alcohol or drug abuse patient.[facility] Campus[facility] the event this information is protected by the Federal Confidentiality of Alcohol and Drug Abuse Patient Records regulations: The Federal rules restrict any use of the information to criminally investigate or prosecute any alcohol or drug abuse patient.[facility] Campus[facility] the event this information is protected by the Federal Confidentiality of Alcohol and Drug Abuse Patient Records regulations: The Federal rules restrict any use of the information to criminally investigate or prosecute any alcohol or drug abuse patient.[facility] Campus[facility] the event this information is protected by the Federal Confidentiality of Alcohol and Drug Abuse Patient Records regulations: The Federal rules restrict any use of the information to criminally investigate or prosecute any alcohol or drug abuse patient.[facility] CampusIn the event this information is protected by the Federal Confidentiality of Alcohol and Drug Abuse Patient Records regulations: The Federal rules restrict any use of the information to criminally investigate or prosecute any alcohol or drug abuse patient.[facility] CampusIn the event this information is protected by the Federal Confidentiality of Alcohol and Drug Abuse Patient Records regulations: The Federal rules restrict any use of the information to criminally investigate or prosecute any alcohol or drug abuse patient.[facility] CampusIn the event this information is protected by the Federal Confidentiality of Alcohol and Drug Abuse Patient Records regulations: The Federal rules restrict any use of the information to criminally investigate or prosecute any alcohol or drug abuse patient.[facility] Campus[facility] the event this information is protected by the Federal Confidentiality of Alcohol and Drug Abuse Patient Records regulations: The Federal rules restrict any use of the information to criminally investigate or prosecute any alcohol or drug abuse patient.[facility] (unrecognized sect ion and content) No Status Records FoundNo Status Records FoundNo Status Records FoundNo Status Records FoundNo Status Records FoundNo Status Records Found INFORMATION SOURCE (unrecogn ized section and content) DATE CREATED AUTHOR [facility]20[facility] DATE CREATED AUTHOR AUTHOR'S ORGANIZ ATION 01/13/2024 [facility] DATE CREATED AUTHOR AUTHOR'S ORGANIZ ATION 02/15/2024 [facility] DATE CREATED AUTHOR AUTHOR'S ORGANIZ ATION 02/22/2024 [facility] DATE CREATED AUTHOR AUTHOR'S ORGANIZ ATION 12/04/2024 [facility] DATE CREATED AUTHOR AUTHOR'S ORGANIZ ATION 12/17/2024 [employer] Scheduled Active and Recently Administ ered [...] socket sites after extraction) lidocaine-epinephrine (XYLOCAINE) 2 %-1:409521 injection (CANCELED) PRN, Starting on Sun12/28/23 at [...] BE BASED ON THE PRIMARY CLINICAL RECORDS. [employer] provides no warranty or guarantee of the accuracy or completeness of information in this document.
[2025-05-15 08:09] LABS: Lithium (Eskalith(R)), Serum 1.1 mmol/L (0.5-1.2)
== END 2025-05-14 07:12 | disposition home or self-care (01) ==
LOC: LAB 07:11
PROVIDERS: PCP Family Medicine; Visit Provider Family Medicine
DX: F31.89 Other bipolar disorder (principal); G40.909 Epilepsy, unspecified, not intractable, without status epilepticus; Z79.899 Other long term (current) drug therapy
CPT/HCPCS: 36415; 80164; 80178

== ENCOUNTER 2025-05-28 07:04 | Outpatient (OUT) | payer MEDICARE, MEDICAID, SELFPAY ==
--- OUTSIDE RECORDS SUMMARY | 2025-05-28 07:07 | XMS_ITS | CCD ---
Author Organization [facility] CliniSyms Care Team Providers Care Floor Manager Name Role Phone Jewell MATA, Gallagher Unavailable [...] Unavailable CRANE, DR HERMAN Pollack Admitting Unavailable CRNAE, DR HERMAN Pollack Attending Unavailable CRANE, DR [...] Pollack Consulting Unavailable Jewell MATA Gallagher Unavailable [phone] HERMAN CRANE Primary Care Physician [phone] Unavailable Primary Care Provider Unavailabl e Unavailable Primary Care Provider Unavailabl e PHOENIX CARDENAS Referring Unavailable BESAMUEL MONROY Admitting Unava ilable ELIU GAN Attending Unavailable CHEHROSCAR HUIZAR Attending Unavailable DANIELVICTORIA Attending Unavailable CRANE, HERMAN Attending Unavailable CRANE, HERMAN Admitting Unavailable CRANE, HERMAN Admitting Unavailable CRANE, HERMAN Attending Unavailable CRANE, HERMAN Attending Unavailable CRANE, HERMAN Admitting Unavailable Markiv RN HEMODIALYSIS CHARGE-COCOA BUTTER FILTER OPERATOR, Ling Unavailable [phone] Unavailable Primary Care Provider Unavailabl e Unavailable [...] Clarithromycin Drug Allergy 05-04-20 Other: See Comments [facility] (20 sources) Clarithromycin; Translations: [CLARITHROMYCIN] Propensity to adverse reactions to drug 06-12-20 18 Other, Nausea and Vomiting [facility] Work Phone: (9 sources) Clarithromycin Drug Allergy 05-04-20 Other: See Comments [facility] (1 source) Clarithromycin Drug Allergy [facility] Repository Medications Current Medications Medication [...] take 1 capsule by mouth twice daily [place] 300 MG capsule TAKE ONE CAPSULE BY [...] mouth Active take 1 capsule by mo [facility] once daily at bedtime loratadine 10 [...] 4 mg/0.1 mL nasal liquid Use 1 Jachin in one nostril (alternate sides) as needed [...] Start: 04-19-2022 take 2 tablets by mo [facility] twice daily naltrexone (TREXAN) 50 mg tablet TAKE TWO TABLETS BY MOUTH TWICE DAILY REVIA 0 04/19/2022 Active Start: 04-19-2022 [facility] naltrexone (TREXAN) 50 mg tablet [...] nausea or vomiting Active polyethylene glycol 3350 83688 mg powder for oral solution (20 sources) Osmotic Laxative Start: Polyethylene Glycol 3350 (PEG 3350) 17 GM/SCOOP Powder 02/23/2025 Active Start: 01-24-2021 End: 12-28-2023 polyethylene glycol 3350 (IN RALAX, GLYCOLAX) 17 gram/dose powder Take 17 [...] t wo times a day. 1999 sennosides, correction 8.6 mg oral capsule (20 sources) Sennosides [...] 08-25-19 Chronic Other aftercare (5 sources) Other [facility] (current) drug therapy; Translations: [OTH CARE HOME CURRENT DRUG THERAPY] Onset: 12-04-19 Episodic Other [...] Remisol Chem Physician Orderon 02-13-2024 Physician Order [id number]# 1.00TIFF Normal [facility] Valproic Acidon 02-13-2024 Valpro Acid Lvl 98 microgram/mL Normal 50-99 [facility] Comment on above: Performed By: #### 2 [id number] #### [facility] Laboratory [address] [place] [address] Lara 01-11-2024 CNPN Telephone (CORSMN) JOHNNY DEVINE ([id number]) 1990 M Date Time Provider Department 01/11/24 CRIS DINH During your visit today, we recorded the following information about you: Cris Dinh, RN 01/11/2024 1:50 PM Signed Jessica from [facility] [phone] is caller. 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 Normal [facility] Anesthesia Preprocedure Eval uationon 12-28-2023 Mobile Practice Lead Authentication Interface Message Text ASA: 3 NPO [...] and physical examination. Attestation: MHPATFORM Normal [facility] Anesthesia Transfer Of Careo n 12-28-2023 Mobile Practice Lead Authentication Interface Message Text Patient taken to [...] DENTAL RESTORATIONS; Surgeon: Harpreet Mccurdy DDS; Location: [facility] Surgery [place]; Service: Dental Allergies: Biaxin [clarithromycin] Basic Operating Room Facts: Surgeon(s): Mari Traore DMD Anesthesiologist: Linda Saldivar MD SENIOR EXECUTIVE ASSISTANT: Selena Camacho APRN-CRNA DENTAL RESTORATIONS (Bilateral: Mouth) [...] [phone] Comment: The [place] Diabetes Association (ADA) provides guidance for cutoff [...] Standards of Medical Care in Diabetes 2016, [place] Diabetes Association. Diabetes Care. 2016.39(Suppl 1). 8 0.70 8.2 11/06/23 [phone] Comment: The [place] Diabetes Association (ADA) provides guidance for cutoff [...] Standards of Medical Care in Diabetes 2016, [place] Diabetes Association. Diabetes Care. 2016.39(Suppl 1). 6 0.69 8 (more content not included)... Normal [facility] Blood Attestationon 12-28-19 Mobile Practice Lead Authentication Interface Message Text Blood Attestation: ATTESTATION OF INFORMED CONSENT FOR BLOOD: The transfusion of blood and/or blood components were discussed with the patient and/or legal signs sales representative. The risks, benefits and alternatives were reviewed. Questions regarding blood transfusions were answered. The patient /or the patient's legal signs sales representative agree with the plan for transfusion of blood and/or blood components. Normal [facility] Brief Operative Noteon 12-27 Mobile Practice Lead Authentication Interface Message Text Brief Operative Note PHE OR 3 Johnny Devine 33 year old male Surgical Contact Serial Number: [id number] Preoperative Diagnosis: Pre-op Diagnosis * Caries [K02.9] Moderate intellectual disability [F79] Postoperative Diagnosis: Moderate intellectual disability [F79] Procedures: Comprehensive exam [27648] Full mouth X-ray [ 43536] Extractions [19202] Restorations [84221] Prophy 97734] Fluoride treatment [02371] Surgeon(s): Surgeon(s): Mari Traore DMD Staff: [employer] Nurse: Henrietta Johnson Anesthesia: General Anesthesia Staff: [...] Whiting DDS 12/28/2023 1;48 pm Normal [facility] OP Noteon 12-28-2023 Mobile Practice Lead Authentication Interface Message Text Surgical Case Number Data Unavailable Operating Room Data Unavailable Preoperative Diagnosis(es): Pre-op Diagnosis * Caries [K02.9] Moderate intellectual disability [F79] Postoperative Diagnosis(es): Moderate intellectual disability[F79] @ENCORD@ Surgeon: Dr. Mari Traore DMD Glass Selector Surgeon: Reema Whiting DDS Anesthesia: General- Nasal [...] 4 mg/0.1 mL nasal liquid Use 1 Jachin in one nostril (alternate sides) as needed [...] Whiting DDS 12/28/2023 1:53 pm Normal [facility] Progress Noteson 12-28-2023 Mobile Practice Lead Authentication Interface Message Text Patient takes his seizure medication with pudding, facility held them today for dental surgery. Caregiver brought capsules with them to pre-op. Per Dr. Saldivar, divalproex 125 mg x 4 capsules (500 mg) were opened and sprinkles given to patient with 50 mL of water in pre-op. 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 MB cusp tip was visualized upon extraction of #17, but well encased in bone and would not be exposed to the oral cavity following healing of the extraction site. Preoperative Diagnosis(es): Pre-op Diagnosis * Caries [K02.9] Moderate intellectual disability [F79] Postoperative Diagnosis(es): Moderate intellectual disability[F79] Surgeon: Dr. Mari Traore DMD Glass Selector Surgeon: Reema Whiting DDS Anesthesia: General- Nasal [...] at end of surgery: Stable Normal [facility] CHRISTINA Delgado Mobile Practice Lead Authentication Interface Message Text Addendum 12/21/2023- Caregiver @ [facility] facility called to relay that patient unable to take medications without pudding. Per Dr. Newell: Instruct them to take the meds at night. Please then coordinate with either the anesthesia team or surgical team to order IV depacon so he can get his depakote. I would have the facility bring his oral depakote for after surgery If they can't get the depacon at [place] CHRISTINA RN updated nursing staff @ [facility]. Normal [facility] BASIC METABOLIC PANELon 05-0 Anion gap [Moles/Vol] 13 mmol/L Normal 10-20 [facility] Comment on above: Performed By: #### C H8 ####[facility] [id number] [place], [place], Calcium [Mass/Vol] 9.9 mg/dL Normal 8.6-10.3 [facility] Comment on above: Performed By: #### C H8 ####[facility] [id number] [place], [place], Chloride [Moles/Vol] 106 mmol/L Normal 98-107 [facility] Comment on above: Performed By: #### C H8 ####S PATHOLOGY [id number] [place], CO2 [Moles/Vol] 25 mmol/L Normal 21-31 [facility] Comment on above: Performed By: #### C H8 ####S PATHOLOGY [id number] [place], [place], Creatinine [Mass/Vol] 0.93 mg/dL Normal 0.70-1.30 [facility] Comment on above: Performed By: #### C H8 ####S PATHOLOGY [id number] [place], [place], ESTIMATED GFR (CKD-EPI) 113 mL/min/1.73sqm Normal >=60 [facility] Comment on above: Result Comment: 2020 [...] Inclusion of Race in Diagnosing Kidney Disease. Citizen [place] Journal of Kidney Diseases 2021;79(2):268-88.e1. 2. N Engl J Med 1 Vol. 385 Issue 19 Pages 8309-8028 Performed By: #### C H8 ####S PATHOLOGY [id number] [place], [place], Glucose [Mass/Vol] 115 mg/dL High 74-109 [facility] Comment on above: Performed By: #### C H8 ####S PATHOLOGY [id number] [place], [place], Potassium [Moles/Vol] 4.6 mmol/L Normal 3.5-5.0 [facility] Comment on above: Performed By: #### C H8 ####[facility] [id number] [place], Sodium [Moles/Vol] 139 mmol/L Normal 136-145 [facility] Comment on above: Performed By: #### C H8 ####[facility] [id number] [place], Urea nitrogen [Mass/Vol] 15 mg/dL Normal 7-25 [facility] Comment on above: Performed By: #### C H8 ####[facility] [id number] [place], [place], Basic metabolic 2000 panelon 12-19-2023 Anion [...] Inclusion of Race in Diagnosing Kidney Disease. Citizen [place] Journal of Kidney Diseases 2021;79(2):268-88.e1. 2. N Engl J Med 2020 Vol. 385 Issue 19 Pages 2736-6250 Glucose [Mass/Vol] 115 mg/dL High 74 - 109 mg/dL [facility] Interpretation and review of laboratory results Abnormal [facility] Potassium [Moles/Vol] 4.6 mmol/L 3.5 - 5.0 mmol/L [facility] Sodium [Moles/Vol] 139 mmol/L 136 - 145 mmol/L [facility] Urea nitrogen [Mass/Vol] 15 mg/dL 7 - 25 mg/dL [facility] PAT Appt H AND Ross 4 Mobile Practice Lead Authentication Interface Message Text Patient was identified by name and date of . Jaswinder Arredondo Patient at risk for falls:No Falls Risk protocol implemented: N/A Normal [facility] Patient Instructionson 12-18 Mobile Practice Lead Authentication Interface Message Text [facility] staff: Since patient is unable to take [...] for pain. Please hold all Vitamin E, [place] 3, fish oil and herbal supplements for 1 week prior to surgery. Please use this LIST to prepare for your surgery/procedure: ? Assume that any lab or testing done during your Pre-admission testing appointment is within normal limits unless otherwise contacted. ? Expect a call from [facility] one business day prior to surgery for [...] questions. Contact the Pre-Admission Testing department at [phone] or your surgeon's office with any questions [...] stay with you after surgery. Please call [facility] if you need transportation assistance or have concerns about going home [phone]. ? SLEEP APNEA PATIENTS: Bring your sleep apnea machine and mask. ? PLEASE BE ON TIME. A late arrival may result in the cancellation/ delay of your surgery. Thank you for choosing [facility]; it is our pleasure to care for you Normal [facility] 12-03-2023 [facility] Office Visit (UROLMN ) JOHNNY DEVINE ([id number]) 1990 M Date Time Provider Department 12/03/23 [...] OFFICE/OUTPATIENT EST PT MAY NOT REQ PHYS/QHP [67577] LOS History for Encounter Encounter Status:Closed by OSCAR RUIZ on 12/03/23 Normal [facility] CNOVon 11-28-2023 CNOV Office Visit (CORTEZ ) NILSONJOHNNY ([id number]) 1990 M Date Time Provider Department 11/28/23 [...] Victoria Sanchez APRN.CNP 11/28/2023 10:19 AM Signed [facility] Clinic Date: November 28, 2023 Johnny Devine 33 year old male CHIEF COMPLAINT: Patient presents for follow up from surgery. HPI: Here for follow up after diagnostic laparotomy on 10/29/[address] Robin. Patient also underwent a dorsal slit procedure with urology on 10/30/2023 for paraphimosis. Patient with a fork repairer today to discuss his postoperative course since [...] ICD10: Z48.89 (more content not included)... 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 [3602] Prescriptions as of 11/12/2023 [...] Encounter Status:Closed by CRIS DINH on 3/25/24 [facility] metabolic 2000 panelon 11-07-2023 Anion gap [Moles/Vol] 10 mmol/L Normal 9-18 [facility] Comment on above: Order Comment: Speci men Type: BLOOD SPECIMEN Ordering Facility: [facility] Address: [address] [place] [address] Performed By: #### 2 4321-2, , 2776-08 #### [facility] CLIA [id number] [address] [place] [address] [place] Calcium [Mass/Vol] 8.2 mg/dL Low 8.5-10.2 [facility] Comment on above: Order Comment: Speci men Type: BLOOD SPECIMEN Ordering Facility: [facility] Address: [address] [place] [address] Performed By: #### 2 4321-2, , 2776-08 #### [facility] CLIA [id number] [address] [place] [address] [place] Chloride [Moles/Vol] 110 mmol/L High 97-105 [facility] Comment on above: Order Comment: Speci men Type: BLOOD SPECIMEN Ordering Facility: [facility] Address: [address] [place] [address] Performed By: #### 2 4321-2, , 2776-08 #### [facility] CLIA [id number] [address] [place] [address] [place] CO2 [Moles/Vol] 21 mmol/L Low 22-30 [facility] Comment on above: Order Comment: Speci men Type: BLOOD SPECIMEN Ordering Facility: [facility] Address: [address] [place] [address] Performed By: #### 2 4321-2, , 2776-08 #### [facility] CLIA [id number] [address] [place] [address] [place] Creatinine [Mass/Vol] 0.70 mg/dL Low 0.73-1.22 [facility] Comment on above: Order Comment: Sana zuñiga Type: BLOOD SPECIMEN Ordering Facility: [facility] Address: [address] [place] [address] Performed By: #### 2 4321-2, , 2776-08 #### [facility] CLIA [id number] [address] [place] [address] [place] Creatinine and Glomerular filtration rate.predicted panel (S/P/Bld) 126 mL/min/1.73m??? Normal >=60 [facility] Comment on above: Order Comment: Sana zuñiga Type: BLOOD SPECIMEN Order[facility] Address: [address] [place] [address] Result Comment: Lor mated Glomerular Filtration Rate [...] By: #### 2 4321-2, , 2776-08 #### [facility] CLIA [id number] [address] [place] [address] [place] Glucose [Mass/Vol] 91 mg/dL Normal 74-99 [facility] Comment on above: Order Comment: Sana zuñiga Type: BLOOD SPECIMEN Ordering [facility]: [facility] Address: [address] [place] [address] Result Comment: The Citizen [place] Diabetes Association (ADA) provides guidance for cutoff [...] Standards of Medical Care in Diabetes 2016, [place] Diabetes Association. Diabetes Care. 2016.39(Suppl 1). Performed By: #### 2 4321-2, , 2776-08 #### [facility] CLIA [id number] [address] [place] [address] [place] Potassium [Moles/Vol] 4.4 mmol/L Normal 3.7-5.1 [facility] Comment on above: Order Comment: Speci men Type: BLOOD SPECIMEN Order[facility] Address: [address] [place] [address] Performed By: #### 2 4321-2, , 2776-08 #### [facility] CLIA [id number] [address] [place] [address] [place] Sodium [Moles/Vol] 141 mmol/L Normal 136-144 [facility] Comment on above: Order Comment: Speci men Type: BLOOD SPECIMEN Ordering [facility] Address: [address] [place] [address] Performed By: #### 2 432-2, , 2776-08 #### [facility] CLIA [id number] [address] [place] [address] [place] Urea nitrogen [Mass/Vol] 8 mg/dL Low 9-24 [facility] Comment on above: Order Comment: Speci men Type: BLOOD SPECIMEN Order[facility] Address: [address] [place] [address] Performed By: #### 2 432-2, , 2776-08 #### [facility] CLIA [id number] [address] [place], [place] [address] [place] CBC panel Auto (Bld)on 11-06 Erythrocyte distribution width (RBC) [Ratio] 15.1 % High 11.5-15.0 [facility] Comment on above: Order Comment: Speci men Type: BLOOD SPECIMENOrdering Facility: [facility] Address: [address] [place] [address] Performed By: #### 5 8410-2 ####[facility] [id number] [place] [address] [place] Hematocrit (Bld) [Volume fraction] 31.4 % Low 39.0-51.0 [facility] Comment on above: Order Comment: Speci men Type: BLOOD SPECIMENOrdering Facility: [facility] Address: [address] [place] [address] Performed By: #### 5 8410-2 ####[facility] [id number] [place] [address] [place] Hemoglobin (Bld) [Mass/Vol] 9.9 g/dL Low 13.0-17.0 [facility] Comment on above: Order Comment: Speci men Type: BLOOD SPECIMENOrdering Facility: [facility] Address: [address] [place] [address] Performed By: #### 5 8410-2 ####[facility] [id number] [place] [address] [place] MCH (RBC) [Entitic mass] 27.3 pg Normal 26.0-34.0 [facility] Comment on above: Order Comment: Speci men Type: BLOOD SPECIMENOrdering Facility: [facility] Address: [address] [place] [address] Performed By: #### 5 8410-2 ####[facility] [id number] [place] [address] [place] MCHC (RBC) [Mass/Vol] 31.5 g/dL Normal 30.5-36.0 [facility] Comment on above: Order Comment: Speci men Type: BLOOD SPECIMENOrdering Facility: [facility] Address: [address] [place] [address] Performed By: #### 5 8410-2 ####[facility] [id number] [place] [address] [place] MCV (RBC) [Entitic vol] 86.5 fL Normal 80.0-100.0 [facility] Comment on above: Order Comment: Speci men Type: BLOOD SPECIMENOrdering Facility: [facility] Address: [address] [place] [address] Performed By: #### 5 8410-2 ####[facility] [id number] [place] [address] [place] Nucleated RBC (Bld) [#/Vol] 10*3/uL Normal <0.01 [facility] Comment on above: Order Comment: Speci men Type: BLOOD SPECIMENOrdering Facility: [facility] Address: [address] [place] [address] Performed By: #### 5 8410-2 ####[facility] [id number] [place] [address] [place] Platelet mean volume (Bld) [Entitic vol] 9.4 fL Normal 9.0-12.7 [facility] Comment on above: Order Comment: Speci men Type: BLOOD SPECIMENOrdering Facility: [facility] Address: [address] [place] [address] Performed By: #### 5 8410-2 ####[facility] [id number] [place] [address] [place] Platelets (Bld) [#/Vol] 215 10*3/uL Normal 150-400 [facility] Comment on above: Order Comment: Speci men Type: BLOOD SPECIMENOrdering Facility: [facility] Address: [address] [place] [address] Performed By: #### 5 8410-2 ####[facility] [id number] [place] [address] [place] RBC (Bld) [#/Vol] 3.63 10*6/uL Low 4.20-6.00 [facility] Comment on above: Order Comment: Speci men Type: BLOOD SPECIMENOrdering Facility: [facility] Address: [address] [place] [address] Performed By: #### 5 8410-2 ####[facility] [id number] [place] [address] [place] WBC (Bld) [#/Vol] 8.67 10*3/uL Normal 3.70-11.00 [facility] Comment on above: Order Comment: Speci men Type: BLOOD SPECIMENOrdering Facility: [facility] Address: [address] [place] [address] Performed By: #### 5 8410-2 ####[facility] [id number] [place] [address] [place] CNCOon 11-07-2023 CNCO Letter Text Normal [facility] CNDSon 11-07-2023 CNDS HNO ID: [id number] Author: SAMUEL ROBIN MD Service: General Surgery [...] PSH who presents as a transfer to [facility] from [facility] for further management of small bowel obstruction. Given patient's baseline cognitive status, NGT difficult to maintain. He was admitted to the [facility] under care of general surgery and was taken to the OR the following morning for diagnostic laparoscopy. Intra-operative findings demonstrated no adhesins, no apparent hernias, dilated small/large bowel, redundant sigmoid c/f volvulus, easily reduced. After recovering in the PACU, he was taken to the [facility] with NGT in place. Patient arrived to [facility] with 8 Fr pediatric haskins [...] Noted Oropharyngeal dysphagia 11/06/2023 Epilepsy ([facility]) 11/06/2023 S/P laparoscopy 11/05/2023 Acute postoperative pain 11/05/2023 Obesity, Class I, BMI 30-34.9 11/02/2023 Developmental non-verbal disorder Obsessive-compulsive disorder 09/16/2018 Moderate intellectual disability 09/16/2018 Hypothyroidism 09/16/2018 Bipolar disorder ([facility]) 09/16/2018 Resolved Hospital Problems Diagnosis Date Noted Date Resolved SBO (small bowel obstruction) ([facility]) 10/28/2023 10/31/2023 Transitions of Care Critical Issues: Follow up with Dr. Fairbanks MRI as outpatient and follow up with Neurology in 2 weeks LABS AND PROCEDURES PENDING AT DISCHARGE: No pending results. CONSULTING TEAMS DURING HOSPIT (more content not included)... Normal [facility] CONSULT PROGon 11-07-2023 CONSULT PROG HNO ID: [id number] Author: BRUCE RESENDIZ MD Service: Neurology General [...] November 06, 2023 TIME: 8:36 AM Normal [facility] Magnesium SerPl-mCncon 11-06 Magnesium [Mass/Vol] 2.1 mg/dL Normal 1.7-2.3 [facility] Comment on above: Order Comment: Speci men Type: BLOOD SPECIMEN [facility] Address: [address] [place] [address] Performed By: #### 2 4321-2, 55657-3, 2777-1 #### [facility] CLIA [id number] [address] [place] [address] [place] [address] [place] NURSING PROGon 11-07-2023 NURSING PROG HNO ID: [id number] Author: MAYANK READ RN Service: Nursing Author Type: Registered Nurse Type: Nursing Progress Note Filed: 11/07/2023 14:53 Note Text: Pt is discharged to a long-term, supervisor cutting and boning Magi just arrived to slate picker. Reviewed discharge paper works and handed it to the supervisor cutting and boning. IV removed, pt tolerated. EEG removed by geothermal technician. Normal [facility] NUTRITIONon 11-07-2023 NUTRITION HNO ID: [id number] Author: RAFAELA COOL DTR Service: Nutrition Therapy Author Type: Photographic Process Screen Maker Type: Nutrition Filed: 11/07/2023 13:38 Note Text: NUTRITION THERAPY BRAND COMMUNICATIONS MANAGER NOTE SERVICE DATE: 11/07/2023 SERVICE TIME: 1000 [...] November 07, 2023 TIME: 1:38 PM Normal [facility] Phosphate SerPl-mCncon 11-06 Phosphate [Mass/Vol] 4.1 mg/dL Normal 2.7-4.8 [facility] Comment on above: Order Comment: Speci men Type: BLOOD SPECIMEN [facility] Address: [address] [place] [address] Performed By: #### 2 4321-2, 08529-7, 2777-1 #### [facility] CLIA [id number] [address] [place] [address] [id number] [address] [place] Basic metabolic 2000 panelon 11-06-2023 Anion gap [Moles/Vol] 16 mmol/L Normal 9-18 [facility] Comment on above: Order Comment: Speci men Type: BLOOD SPECIMEN [facility] Address: [address] [place] [address] Performed By: #### 2 4321-2, , 2776-08 #### [facility] CLIA [id number] [address] [place] [address] [place] Calcium [Mass/Vol] 8.9 mg/dL Normal 8.5-10.2 [facility] Comment on above: Order Comment: Speci men Type: BLOOD SPECIMEN [facility] Address: [address] [place] [address] Performed By: #### 2 4321-2, , 2776-08 #### [facility] CLIA [id number] [address] [place] [address] [place] Chloride [Moles/Vol] 112 mmol/L High 97-105 [facility] Comment on above: Order Comment: Speci men Type: BLOOD SPECIMEN [facility] Address: [address] [place] [address] Performed By: #### 2 4321-2, , 2776-08 #### [facility] CLIA [id number] [address] [place] [address] [place] CO2 [Moles/Vol] 18 mmol/L Low 22-30 [facility] Comment on above: Order Comment: Speci men Type: BLOOD SPECIMEN [facility] Address: [address] [place] [address] Performed By: #### 2 4321-2, , 2776-08 #### [facility] CLIA [id number] [address] [place] [address] [place] Creatinine [Mass/Vol] 0.69 mg/dL Low 0.73-1.22 [facility] Comment on above: Order Comment: Sana zuñiga Type: BLOOD SPECIMEN [facility] Address: [address] [place] [address] Performed By: #### 2 4321-2, , 2776-08 #### [facility] CLIA [id number] [address] [place] [address] [place] Creatinine and Glomerular filtration rate.predicted panel (S/P/Bld) 127 mL/min/1.73m??? Normal >=60 [facility] Comment on above: Order Comment: Sana zuñiga Type: BLOOD SPECIMEN [facility] Address: [address] [place] [address] Result Comment: Lor mated Glomerular Filtration Rate [...] By: #### 2 4321-2, , 2776-08 #### [facility] CLIA [id number] [address] [place] [address] [place] Glucose [Mass/Vol] 83 mg/dL Normal 74-99 [facility] Comment on above: Order Comment: Sana zuñiga Type: BLOOD SPECIMEN [facility] Address: [address] [place] [address] Result Comment: The [place] Diabetes Association (ADA) provides guidance for cutoff [...] Standards of Medical Care in Diabetes 2016, [place] Diabetes Association. Diabetes Care. 2016.39(Suppl 1). Performed By: #### 2 4321-2, , 2776-08 #### [facility] CLIA [id number] [address] [place] [address] [place] Potassium [Moles/Vol] 4.9 mmol/L Normal 3.7-5.1 [facility] Comment on above: Order Comment: Speci men Type: BLOOD SPECIMEN [facility] Address: [address] [place] [address] Performed By: #### 2 4321-2, , 2776-08 #### [facility] CLIA [id number] [address] [place] [address] [place] Sodium [Moles/Vol] 146 mmol/L High 136-144 [facility] Comment on above: Order Comment: Speci men Type: BLOOD SPECIMEN [facility] Address: [address] [place] [address] Performed By: #### 2 432-2, , 2776-08 #### [facility] CLIA [id number] [address] [place] [address] [place] Urea nitrogen [Mass/Vol] 6 mg/dL Low 9-24 [facility] Comment on above: Order Comment: Speci men Type: BLOOD SPECIMEN [facility] Address: [address] [place] [address] Performed By: #### 2 4321-2, , 2776-08 #### [facility] CLIA [id number] [address] [place], [place] [address] [place] CBC panel Auto (Bld)on 11-05 Erythrocyte distribution width (RBC) [Ratio] 14.8 % Normal 11.5-15.0 [facility] Comment on above: Order Comment: Speci men Type: BLOOD SPECIMEN [facility] Address: [address] [place] [address] Performed By: #### 2 777-1, 92763-3, #### [facility] CLIA [id number] [address] [place] [address] [place] Hematocrit (Bld) [Volume fraction] 31.3 % Low 39.0-51.0 [facility] Comment on above: Order Comment: Speci men Type: BLOOD SPECIMEN [facility] Address: [address] [place] [address] Performed By: #### 2 777-1, 91168-4, #### [facility] CLIA [id number] [address] [place] [address] [place] Hemoglobin (Bld) [Mass/Vol] 9.8 g/dL Low 13.0-17.0 [facility] Comment on above: Order Comment: Speci men Type: BLOOD SPECIMEN [facility] Address: [address] [place] [address] Performed By: #### 2 777-1, , #### [facility] CLIA [id number] [address] [place] [address] [place] MCH (RBC) [Entitic mass] 26.4 pg Normal 26.0-34.0 [facility] Comment on above: Order Comment: Speci men Type: BLOOD SPECIMEN [facility] Address: [address] [place] [address] Performed By: #### 2 777-1, 29353-7, #### [facility] CLIA [id number] [address] [place], [place] [address] [place] MCHC (RBC) [Mass/Vol] 31.3 g/dL Normal 30.5-36.0 [facility] Comment on above: Order Comment: Speci men Type: BLOOD SPECIMEN [facility] Address: [address] [place] [address] Performed By: #### 2 777-1, 29124-2, #### [facility] CLIA [id number] [address] [place] [address] [place] MCV (RBC) [Entitic vol] 84.4 fL Normal 80.0-100.0 [facility] Comment on above: Order Comment: Speci men Type: BLOOD SPECIMEN [facility] Address: [address] [place] [address] Performed By: #### 2 777-1, 28666-6, #### [facility] CLIA [id number] [address] [place] [address] [place] Nucleated RBC (Bld) [#/Vol] 10*3/uL Normal <0.01 [facility] Comment on above: Order Comment: Speci men Type: BLOOD SPECIMEN [facility] Address: [address] [place] [address] Performed By: #### 2 777-1, 66038-7, #### [facility] CLIA [id number] [address] [place] [address] [place] Platelet mean volume (Bld) [Entitic vol] 8.9 fL Low 9.0-12.7 [facility] Comment on above: Order Comment: Speci men Type: BLOOD SPECIMEN [facility] Address: [address] [place] [address] Performed By: #### 2 777-1, 73284-6, #### [facility] CLIA [id number] [address] [place] [address] [place] Platelets (Bld) [#/Vol] 244 10*3/uL Normal 150-400 [facility] Comment on above: Order Comment: Speci men Type: BLOOD SPECIMEN [facility] Address: [address] [place] [address] Performed By: #### 2 777-1, 82048-9, #### [facility] CLIA [id number] [address] [place] [address] [place] RBC (Bld) [#/Vol] 3.71 10*6/uL Low 4.20-6.00 [facility] Comment on above: Order Comment: Speci men Type: BLOOD SPECIMEN [facility] Address: [address] [place] [address] Performed By: #### 2 777-1, 36210-8, #### [facility] CLIA [id number] [address] [place] [address] [place] WBC (Bld) [#/Vol] 7.59 10*3/uL Normal 3.70-11.00 [facility] Comment on above: Order Comment: Speci men Type: BLOOD SPECIMEN [facility] Address: [address] [place] [address] Performed By: #### 2 777-1, 67574-2, #### [facility] CLIA [id number] [address] [place] [address] [place] CONSULT PROGon 11-06-2023 CONSULT PROG HNO ID: [id number] Author: KIM BHAKTA MD Service: Neurology General [...] for now. Kim Bhakta MD Staff Neurologist [facility] Normal [facility] Magnesium SerPl-mCncon 11-05 Magnesium [Mass/Vol] 2.3 mg/dL Normal 1.7-2.3 [facility] Comment on above: Order Comment: Sana zuñiga Type: BLOOD SPECIMEN [facility] Address: [address] [place] [address] Performed By: #### 2 4321-2, 01678-8, 2777-1 #### [facility] CLIA [id number] [address] [place], [place] [address] [place] [address] [place] Phosphate SerPl-mCncon 11-05 Phosphate [Mass/Vol] 4.1 mg/dL Normal 2.7-4.8 [facility] Comment on above: Order Comment: Sana zuñiga Type: BLOOD SPECIMEN [facility] Address: [address] [place] [address] Performed By: #### 2 4321-2, 95652-9, 2777-1 #### [facility] CLIA [id number] [address] [place], [place] [address] [place] THERAPY NTon 11-06-2023 THERAPY NT HNO ID: [id number] Author: CHANTELL BELLA CCC-GEAR REPAIRER Service: Speech/Swallow Author Type: Speech Language Pathologist Type: Therapy (PT/OT/Speech/Resp) Filed: 11/06/2023 10:28 Note Text: [facility] Speech Pathology - [facility] Bedside Swallow Evaluation SERVICE DATE: 11/06/2023 ROOM: [place] [address] IMPRESSIONS: Limited bedside swallowing evaluation as patient [...] assessment. PLAN: Page with concerns/questions. Chantell Bella CCC-GEAR REPAIRER Pager # [phone] BRIEF DIAGNOSIS AND HISTORY per General Surgery [...] discussed with: MIRIAM adkins SIGNATURE: Chantell Bella CCC-GEAR REPAIRER PATIENT NAME: Johnny Devine DATE: November 06, 2023 TIME: 10:12 AM PAGER: [phone] Normal [facility] Basic metabolic 2000 panelon 11-05-2023 Anion gap [Moles/Vol] 7 mmol/L Low - [facility] Comment on above: Order Comment: Speci men Type: BLOOD SPECIMEN [facility] Address: [address] [place] [address] Performed By: #### 5 7021-8 #### [facility] CLIA [id number] [address] [place] [address] [place] Calcium [Mass/Vol] 7.6 mg/dL Low 8.5-10.2 [facility] Comment on above: Order Comment: Speci men Type: BLOOD SPECIMEN [facility] Address: [address] [place] [address] Performed By: #### 5 7021-8 #### [facility] CLIA [id number] [address] [place] [address] [place] Chloride [Moles/Vol] 112 mmol/L High 97-105 [facility] Comment on above: Order Comment: Speci men Type: BLOOD SPECIMEN [facility] Address: [address] [place] [address] Performed By: #### 5 7021-8 #### [facility] CLIA [id number] [address] [place] [address] [place] CO2 [Moles/Vol] 23 mmol/L Normal 22-30 [facility] Comment on above: Order Comment: Speci men Type: BLOOD SPECIMEN [facility] Address: [address] [place] [address] Performed By: #### 5 7021-8 #### [facility] CLIA [id number] [address] [place] [address] [place] Creatinine [Mass/Vol] 0.64 mg/dL Low 0.73-1.22 [facility] Comment on above: Order Comment: Speci men Type: BLOOD SPECIMEN [facility] Address: [address] [place] [address] Performed By: #### 5 7021-8 #### [facility] CLIA [id number] [address] [place] [address] [place] Creatinine and Glomerular filtration rate.predicted panel (S/P/Bld) 130 mL/min/1.73m??? Normal >=60 [facility] Comment on above: Order Comment: Sana zuñiga Type: BLOOD SPECIMEN [facility] Address: [address] [place] [address] Result Comment: Lor mated Glomerular Filtration Rate [...] GFR. Performed By: #### 5 7021-8 #### [facility] CLIA [id number] [address] [place] [address] [place] Glucose [Mass/Vol] 96 mg/dL Normal 74-99 [facility] Comment on above: Order Comment: Sana zuñiga Type: BLOOD SPECIMEN [facility] Address: [address] [place] [address] Result Comment: The [place] Diabetes Association (ADA) provides guidance for cutoff [...] Standards of Medical Care in Diabetes 2016, [place] Diabetes Association. Diabetes Care. 2016.39(Suppl 1). Performed By: #### 5 7021-8 #### [facility] CLIA [id number] [address] [place] [address] [place] Potassium [Moles/Vol] 4.2 mmol/L Normal 3.7-5.1 [facility] Comment on above: Order Comment: Speci men Type: BLOOD SPECIMEN [facility] Address: [address] [place] [address] Performed By: #### 5 7021-8 #### [facility] CLIA [id number] [address] [place] [address] [place] Sodium [Moles/Vol] 142 mmol/L Normal 136-144 [facility] Comment on above: Order Comment: Speci men Type: BLOOD SPECIMEN [facility] Address: [address] [place] [address] Performed By: #### 5 7021-8 #### [facility] CLIA [id number] [address] [place] [address] [place] Urea nitrogen [Mass/Vol] 5 mg/dL Low 9-24 [facility] Comment on above: Order Comment: Speci men Type: BLOOD SPECIMEN [facility] Address: [address] [place] [address] Performed By: #### 5 7021-8 #### [facility] CLIA [id number] [address] [place] [address] [place] CBC panel Auto (Bld)on 11-04 Erythrocyte distribution width (RBC) [Ratio] 14.6 % Normal 11.5-15.0 [facility] Comment on above: Order Comment: Speci men Type: BLOOD SPECIMENOrdering Facility: [facility] Address: [address] [place] [address] Performed By: #### 5 8410-2 ####[facility] [id number] [place] [address] [place] Hematocrit (Bld) [Volume fraction] 30.8 % Low 39.0-51.0 [facility] Comment on above: Order Comment: Speci men Type: BLOOD SPECIMENOrdering Facility: [facility] Address: [address] [place] [address] Performed By: #### 5 8410-2 ####[facility] [id number] [place] [address] [place] Hemoglobin (Bld) [Mass/Vol] 9.7 g/dL Low 13.0-17.0 [facility] Comment on above: Order Comment: Speci men Type: BLOOD SPECIMENOrdering Facility: [facility] Address: [address] [place] [address] Performed By: #### 5 8410-2 ####[facility] [id number] [place] [address] [place] MCH (RBC) [Entitic mass] 26.5 pg Normal 26.0-34.0 [facility] Comment on above: Order Comment: Speci men Type: BLOOD SPECIMENOrdering Facility: [facility] Address: [address] [place] [address] Performed By: #### 5 8410-2 ####[facility] [id number] [place] [address] [place] MCHC (RBC) [Mass/Vol] 31.5 g/dL Normal 30.5-36.0 [facility] Comment on above: Order Comment: Speci men Type: BLOOD SPECIMENOrdering Facility: [facility] Address: [address] [place] [address] Performed By: #### 5 8410-2 ####[facility] [id number] [place] [address] [place] MCV (RBC) [Entitic vol] 84.2 fL Normal 80.0-100.0 [facility] Comment on above: Order Comment: Speci men Type: BLOOD SPECIMENOrdering Facility: [facility] Address: [address] [place] [address] Performed By: #### 5 8410-2 ####[facility] [id number] [place] [address] [place] Nucleated RBC (Bld) [#/Vol] 10*3/uL Normal <0.01 [facility] Comment on above: Order Comment: Speci men Type: BLOOD SPECIMENOrdering Facility: [facility] Address: [address] [place] [address] Performed By: #### 5 8410-2 ####[facility] [id number] [place] [address] [place] Platelet mean volume (Bld) [Entitic vol] 9.1 fL Normal 9.0-12.7 [facility] Comment on above: Order Comment: Speci men Type: BLOOD SPECIMENOrdering Facility: [facility] Address: [address] [place] [address] Performed By: #### 5 8410-2 ####[facility] [id number] [place] [address] [place] Platelets (Bld) [#/Vol] 205 10*3/uL Normal 150-400 [facility] Comment on above: Order Comment: Speci men Type: BLOOD SPECIMENOrdering Facility: [facility] Address: [address] [place] [address] Performed By: #### 5 8410-2 ####[facility] [id number] [place] [address] [place] RBC (Bld) [#/Vol] 3.66 10*6/uL Low 4.20-6.00 [facility] Comment on above: Order Comment: Speci men Type: BLOOD SPECIMENOrdering Facility: [facility] Address: [address] [place] [address] Performed By: #### 5 8410-2 ####[facility] [id number] [place] [address] [place] WBC (Bld) [#/Vol] 7.54 10*3/uL Normal 3.70-11.00 [facility] Comment on above: Order Comment: Speci men Type: BLOOD SPECIMENOrdering Facility: [facility] Address: [address] [place] [address] Performed By: #### 5 8410-2 ####[facility] [id number] [place] [address] [place] [facility] Enterprisel-ncon 11-04 Magnesium [Mass/Vol] 2.0 mg/dL Normal 1.7-2.3 [facility] Comment on above: Order Comment: Speci men Type: BLOOD SPECIMEN [facility] Address: [address] [place] [address] Performed By: #### 5 7021-8 #### [facility] CLIA [id number] [address] [place] [address] [place] Phosphate SerPl-mCncon 11-04 Phosphate [Mass/Vol] 3.1 mg/dL Normal 2.7-4.8 [facility] Comment on above: Order Comment: Speci men Type: BLOOD SPECIMEN [facility] Address: [address] [place] [address] Performed By: #### 5 7021-8 #### [facility] CLIA [id number] [address] [place] [address] [place] THERAPY NTon 11-05-2023 THERAPY NT HNO ID: [id number] Author: ANA LUISA MORALES, PT Service: ? Author Type: Physical Therapist Type: Therapy (PT/OT/Speech/Resp) Filed: 11/05/2023 15:46 Note Text: Physical Therapy Evaluation Summary SERVICE DATE: 11/05/2023 SERVICE TIME: 1459 to 1532 ROOM: [place] [address] PT 6 Clicks Score: 18 DISCHARGE RECOMMENDATIONS [...] Patient Lives With: Other: See Comment Comments: halfway ( intermediate care ) Assistance Available: 24-Hour [...] to like to put things together, laundry, [place]. SUBJECTIVE Pt non-verbal throughout session THERAPY DIAGNOSIS Reduced mobility-other, Abnormalities of gait and mobility-other TREATMENT INTERVENTIONS Evaluation, Therapeutic Activity (08003) Timed Code Treatment (minutes): 18 Skilled Treatment [...] Type: Stepping Bed To Chair Transfer Equipment: (REFINERY OPERATOR VISBREAKING) frequent verbal cues Gait Contact Guard Assistance [...] November 05, 2023 TIME: 3:46 PM Normal [facility] Basic metabolic 2000 panelon 11-04-2023 Anion gap [Moles/Vol] 9 mmol/L Normal - [facility] Comment on above: Order Comment: Speci men Type: BLOOD SPECIMEN [facility] Address: [address] [place] [address] Performed By: #### 2 777-1, 34696-7, #### [facility] CLIA [id number] [address] [place] [address] [place] Calcium [Mass/Vol] 7.7 mg/dL Low 8.5-10.2 [facility] Comment on above: Order Comment: Speci men Type: BLOOD SPECIMEN [facility] Address: [address] [place] [address] Performed By: #### 2 777-1, 23922-5, #### [facility] CLIA [id number] [address] [place] [address] [place] Chloride [Moles/Vol] 112 mmol/L High 97-105 [facility] Comment on above: Order Comment: Speci men Type: BLOOD SPECIMEN [facility] Address: [address] [place] [address] Performed By: #### 2 777-1, 81468-4, #### [facility] CLIA [id number] [address] [place] [address] [place] CO2 [Moles/Vol] 24 mmol/L Normal 22-30 [facility] Comment on above: Order Comment: Speci men Type: BLOOD SPECIMEN [facility] Address: [address] [place] [address] Performed By: #### 2 777-1, 34441-3, #### [facility] CLIA [id number] [address] [place] [address] [place] Creatinine [Mass/Vol] 0.70 mg/dL Low 0.73-1.22 [facility] Comment on above: Order Comment: Speci men Type: BLOOD SPECIMEN [facility] Address: [address] [place] [address] Performed By: #### 2 777-1, 56158-2, #### [facility] CLIA [id number] [address] [place] [address] [place] Creatinine and Glomerular filtration rate.predicted panel (S/P/Bld) 126 mL/min/1.73m??? Normal >=60 [facility] Comment on above: Order Comment: Speci men Type: BLOOD SPECIMEN [facility] Address: [address] [place] [address] Result Comment: Lor mated Glomerular Filtration Rate [...] Performed By: #### 2 777-1, , #### [facility] CLIA [id number] [address] [place] [address] [place] Glucose [Mass/Vol] 79 mg/dL Normal 74-99 [facility] Comment on above: Order Comment: Sana zuñiga Type: BLOOD SPECIMEN [facility] Address: [address] [place] [address] Result Comment: The [place] Diabetes Association (ADA) provides guidance for cutoff [...] Standards of Medical Care in Diabetes 2016, [place] Diabetes Association. Diabetes Care. 2016.39(Suppl 1). Performed By: #### 2 777-1, , #### [facility] CLIA [id number] [address] [place] [address] [place] Potassium [Moles/Vol] 3.6 mmol/L Low 3.7-5.1 [facility] Comment on above: Order Comment: Sana zuñiga Type: BLOOD SPECIMEN [facility] Address: [address] [place] [address] Performed By: #### 2 777-1, , #### [facility] CLIA [id number] [address] [place] [address] [place] Sodium [Moles/Vol] 145 mmol/L High 136-144 [facility] Comment on above: Order Comment: Speci men Type: BLOOD SPECIMEN [facility] Address: [address] [place] [address] Performed By: #### 2 777-1, 01536-5, #### [facility] CLIA [id number] [address] [place] [address] [place] Urea nitrogen [Mass/Vol] 4 mg/dL Low 9-24 [facility] Comment on above: Order Comment: Speci men Type: BLOOD SPECIMEN [facility] Address: [address] [place] [address] Performed By: #### 2 777-1, 66365-5, #### [facility] CLIA [id number] [address] [place] [address] [place] CBC panel Auto (Bld)on 11-03 Erythrocyte distribution width (RBC) [Ratio] 14.3 % Normal 11.5-15.0 [facility] Comment on above: Order Comment: Speci men Type: BLOOD SPECIMEN [facility] Address: [address] [place] [address] Performed By: #### 2 777-1, , #### [facility] CLIA [id number] [address] [place] [address] [place] Hematocrit (Bld) [Volume fraction] 33.4 % Low 39.0-51.0 [facility] Comment on above: Order Comment: Speci men Type: BLOOD SPECIMEN [facility] Address: [address] [place] [address] Performed By: #### 2 777-1, 54516-2, #### [facility] CLIA [id number] [address] [place] [address] [place] Hemoglobin (Bld) [Mass/Vol] 10.5 g/dL Low 13.0-17.0 [facility] Comment on above: Order Comment: Speci men Type: BLOOD SPECIMEN [facility] Address: [address] [place] [address] Performed By: #### 2 777-1, 98714-9, #### [facility] CLIA [id number] [address] [place] [address] [place] MCH (RBC) [Entitic mass] 26.4 pg Normal 26.0-34.0 [facility] Comment on above: Order Comment: Speci men Type: BLOOD SPECIMEN [facility] Address: [address] [place] [address] Performed By: #### 2 777-1, 25655-0, #### [facility] CLIA [id number] [address] [place] [address] [place] MCHC (RBC) [Mass/Vol] 31.4 g/dL Normal 30.5-36.0 [facility] Comment on above: Order Comment: Speci men Type: BLOOD SPECIMEN [facility] Address: [address] [place] [address] Performed By: #### 2 777-1, 06709-0, #### [facility] CLIA [id number] [address] [place] [address] [place] MCV (RBC) [Entitic vol] 84.1 fL Normal 80.0-100.0 [facility] Comment on above: Order Comment: Speci men Type: BLOOD SPECIMEN [facility] Address: [address] [place] [address] Performed By: #### 2 777-1, 68082-4, #### [facility] CLIA [id number] [address] [place] [address] [place] Nucleated RBC (Bld) [#/Vol] 10*3/uL Normal <0.01 [facility] Comment on above: Order Comment: Speci men Type: BLOOD SPECIMEN [facility] Address: [address] [place] [address] Performed By: #### 2 777-1, 04156-0, #### [facility] CLIA [id number] [address] [place] [address] [place] Platelet mean volume (Bld) [Entitic vol] 8.9 fL Low 9.0-12.7 [facility] Comment on above: Order Comment: Speci men Type: BLOOD SPECIMEN [facility] Address: [address] [place] [address] Performed By: #### 2 777-1, 58013-0, #### [facility] CLIA [id number] [address] [place] [address] [place] Platelets (Bld) [#/Vol] 242 10*3/uL Normal 150-400 [facility] Comment on above: Order Comment: Speci men Type: BLOOD SPECIMEN [facility] Address: [address] [place] [address] Performed By: #### 2 777-1, 01086-3, #### [facility] CLIA [id number] [address] [place] [address] [place] RBC (Bld) [#/Vol] 3.97 10*6/uL Low 4.20-6.00 [facility] Comment on above: Order Comment: Speci men Type: BLOOD SPECIMEN [facility] Address: [address] [place] [address] Performed By: #### 2 777-1, 23923-1, #### [facility] CLIA [id number] [address] [place] [address] [place] WBC (Bld) [#/Vol] 9.36 10*3/uL Normal 3.70-11.00 [facility] Comment on above: Order Comment: Specdeshawn zuñiga Type: BLOOD SPECIMEN [facility] Address: [address] [place] [address] Performed By: #### 2 777-1, 05508-6, #### [facility] CLIA [id number] [address] [place] [address] [place] Magnesium SerPl-mCncon 11-03 Magnesium [Mass/Vol] 2.0 mg/dL Normal 1.7-2.3 [facility] Comment on above: Order Comment: Sana zuñiga Type: BLOOD SPECIMEN [facility] Address: [address] [place] [address] Performed By: #### 2 777-1, 71574-9, #### [facility] CLIA [id number] [address] [place] [address] [place] NUTRITIONon 11-04-2023 NUTRITION HNO ID: [id number] Author: SAURABH VAZQUEZ DTR Service: Nutrition Therapy Author Type: Photographic Process Screen Maker Type: Nutrition Filed: 11/04/2023 14:35 Note Text: NUTRITION THERAPY BRAND COMMUNICATIONS MANAGER NOTE SERVICE DATE: 11/04/2023 SERVICE TIME: 1030 Visit Type: Length of Stay Evaluation Goals Met: Not Met Will monitor for diet advancement and nutritional needs as able. Plan of Care: Follow-Up: [facility] Reassessment Nursing Admission Assessment Malnutrition Score: [...] November 04, 2023 TIME: 2:25 PM Normal [facility] Phosphate SerPl-mCncon 11-03 Phosphate [Mass/Vol] 2.6 mg/dL Low 2.7-4.8 [facility] Comment on above: Order Comment: Speci men Type: BLOOD SPECIMEN [facility] Address: [address] [place] [address] Performed By: #### 2 777-1, 60369-9, 12719-3 #### [facility] CLIA [id number] [address] [place] [address] [place] Valproate Free SerPl-mCncon 11-04-2023 Valproate Free [Mass/Vol] 11.3 ug/mL Normal 4.0-30.0 [facility] Comment on above: Order Comment: Speci men Type: BLOOD SPE[facility]IMEN[facility] Address: [address] [place] [address] Result Comment: Refe rence ranges and high/low indicator flags are provided as general guidelines only. The treating physician must determine appropriate target levels/dosing based on the specific clinical situation. This test was developed and its performance characteristics determined by [facility]'s [facility] Pathology and Laboratory Medicine [place] (-[facility]). It has not been cleared or approved by the FDA. [facility] is regulated under CLIA as qualified to perform high-complexity testing. This test is used for clinical purposes. It should not be regarded as investigational or for research. Performed By: #### 4 087-3 ####[facility] [id number] [place] [address] [place] Valproate SerPl-mCncon 11-03 Valproate [Mass/Vol] 49.2 ug/mL Low 50.0-100.0 [facility] Comment on above: Order Comment: Speci men Type: BLOOD SPECIMEN [facility] Address: [address] [place] [address] Result Comment: Refe rence ranges and high/low indicator flags are provided as general guidelines only. The treating physician must determine appropriate target levels/dosing based on the specific clinical situation. Performed By: #### 2 4321-2, 12367-7, 2777-1 #### [facility] CLIA [id number] [address] [place] [address] [place] Basic metabolic 2000 panelon 11-03-2023 Anion gap [Moles/Vol] 11 mmol/L Normal 9-18 [facility] Comment on above: Order Comment: Speci men Type: BLOOD SPECIMEN [facility] Address: [address] [place] [address] Performed By: #### 2 777-1, 39806-5, #### [facility] CLIA [id number] [address] [place] [address] [place] Calcium [Mass/Vol] 7.7 mg/dL Low 8.5-10.2 [facility] Comment on above: Order Comment: Speci men Type: BLOOD SPECIMEN [facility] Address: [address] [place] [address] Performed By: #### 2 777-1, 51947-6, #### [facility] CLIA [id number] [address] [place] [address] [place] Chloride [Moles/Vol] 112 mmol/L High 97-105 [facility] Comment on above: Order Comment: Speci men Type: BLOOD SPECIMEN [facility] Address: [address] [place] [address] Performed By: #### 2 777-1, 03777-5, #### [facility] CLIA [id number] [address] [place], [place] [address] [place] CO2 [Moles/Vol] 22 mmol/L Normal 22-30 [facility] Comment on above: Order Comment: Sana zuñiga Type: BLOOD SPECIMEN [facility] Address: [address] [place] [address] Performed By: #### 2 777-1, 94119-6, #### [facility] CLIA [id number] [address] [place] [address] [place] Creatinine [Mass/Vol] 0.68 mg/dL Low 0.73-1.22 [facility] Comment on above: Order Comment: Speci men Type: BLOOD SPECIMEN [facility] Address: [address] [place] [address] Performed By: #### 2 777-1, 99613-4, #### [facility] CLIA [id number] [address] [place] [address] [place] Creatinine and Glomerular filtration rate.predicted panel (S/P/Bld) 127 mL/min/1.73m??? Normal >=60 [facility] Comment on above: Order Comment: Sana zuñiga Type: BLOOD SPECIMEN [facility] Address: [address] [place] [address] Result Comment: Lor mated Glomerular Filtration Rate [...] actual GFR. Performed By: #### 2 777-1, 30086-8, #### [facility] CLIA [id number] [address] [place] [address] [place] Glucose [Mass/Vol] 85 mg/dL Normal 74-99 [facility] Comment on above: Order Comment: Speci men Type: BLOOD SPECIMEN Order[facility] Address: [address] [place], [place] [address] Result Comment: The [place] Diabetes Association (ADA) provides guidance for cutoff [...] Standards of Medical Care in Diabetes 2016, [place] Diabetes Association. Diabetes Care. 2016.39(Suppl 1). Performed By: #### 2 777-1, 40307-8, #### [facility] CLIA [id number] [address] [place] [address] [place] Potassium [Moles/Vol] 3.4 mmol/L Low 3.7-5.1 [facility] Comment on above: Order Comment: Sana zuñiga Type: BLOOD SPECIMEN [facility] Address: [address] [place] [address] Performed By: #### 2 777-1, , #### [facility] CLIA [id number] [address] [place] [address] [place] Sodium [Moles/Vol] 145 mmol/L High 136-144 [facility] Comment on above: Order Comment: Sana zuñiga Type: BLOOD SPECIMEN [facility] Address: [address] [place] [address] Performed By: #### 2 777-1, , #### [facility] CLIA [id number] [address] [place] [address] [place] Urea nitrogen [Mass/Vol] 5 mg/dL Low 9-24 [facility] Comment on above: Order Comment: Speci men Type: BLOOD SPECIMEN [facility] Address: [address] [place] [address] Performed By: #### 2 777-1, 98575-3, 03063-4 #### [facility] CLIA [id number] [address] [place] [address] [place] CBC W Auto Differential pane l (Bld)on 11-03-2023 Basophils (Bld) [#/Vol] 10*3/uL Normal <0.11 [facility] Comment on above: Order Comment: Speci men Type: BLOOD SPECIMEN [facility] Address: [address] [place] [address] Performed By: #### 5 7021-8 #### [facility] CLIA [id number] [address] [place] [address] [place] Basophils/100 WBC (Bld) 0.3 % Normal [facility] Comment on above: Order Comment: Speci men Type: BLOOD SPECIMEN [facility] Address: [address] [place] [address] Performed By: #### 5 7021-8 #### [facility] CLIA [id number] [address] [place] [address] [place] Differential cell count method Nom (Bld) Auto Normal [facility] Comment on above: Order Comment: Speci men Type: BLOOD SPECIMEN [facility] Address: [address] [place] [address] Performed By: #### 5 7021-8 #### [facility] CLIA [id number] [address] [place] [address] [place] Eosinophils (Bld) [#/Vol] 0.25 10*3/uL Normal <0.46 [facility] Comment on above: Order Comment: Speci men Type: BLOOD SPECIMEN [facility] Address: [address] [place] [address] Performed By: #### 5 7021-8 #### [facility] CLIA [id number] [address] [place] [address] [place] Eosinophils/100 WBC (Bld) 3.1 % Normal [facility] Comment on above: Order Comment: Speci men Type: BLOOD SPECIMEN [facility] Address: [address] [place] [address] Performed By: #### 5 7021-8 #### [facility] CLIA [id number] [address] [place] [address] [place] Erythrocyte distribution width (RBC) [Ratio] 13.7 % Normal 11.5-15.0 [facility] Comment on above: Order Comment: Speci men Type: BLOOD SPECIMEN [facility] Address: [address] [place] [address] Performed By: #### 5 7021-8 #### [facility] CLIA [id number] [address] [place] [address] [place] Hematocrit (Bld) [Volume fraction] 29.9 % Low 39.0-51.0 [facility] Comment on above: Order Comment: Speci men Type: BLOOD SPECIMEN [facility] Address: [address] [place] [address] Performed By: #### 5 7021-8 #### [facility] CLIA [id number] [address] [place] [address] [place] Hemoglobin (Bld) [Mass/Vol] 9.4 g/dL Low 13.0-17.0 [facility] Comment on above: Order Comment: Speci men Type: BLOOD SPECIMEN [facility] Address: [address] [place] [address] Performed By: #### 5 7021-8 #### [facility] CLIA [id number] [address] [place] [address] [place] Immature granulocytes (Bld) [#/Vol] 0.11 10*3/uL High <0.10 [facility] Comment on above: Order Comment: Speci men Type: BLOOD SPECIMEN [facility] Address: [address] [place] [address] Performed By: #### 5 7021-8 #### [facility] CLIA [id number] [address] [place] [address] [place] Immature granulocytes/100 WBC (Bld) 1.4 % Normal [facility] Comment on above: Order Comment: Speci men Type: BLOOD SPECIMEN [facility] Address: [address] [place] [address] Performed By: #### 5 7021-8 #### [facility] CLIA [id number] [address] [place] [address] [place] Lymphocytes (Bld) [#/Vol] 2.03 10*3/uL Normal 1.00-4.00 [facility] Comment on above: Order Comment: Speci men Type: BLOOD SPECIMEN Order[facility] Address: [address] [place] [address] Performed By: #### 5 7021-8 #### [facility] CLIA [id number] [address] [place] [address] [place] Lymphocytes/100 WBC (Bld) 25.4 % Normal [facility] Comment on above: Order Comment: Speci men Type: BLOOD SPECIMEN [facility] Address: [address] [place] [address] Performed By: #### 5 7021-8 #### [facility] CLIA [id number] [address] [place] [address] [place] MCH (RBC) [Entitic mass] 26.5 pg Normal 26.0-34.0 [facility] Comment on above: Order Comment: Speci men Type: BLOOD SPECIMEN Order[facility] Address: [address] [place] [address] Performed By: #### 5 7021-8 #### [facility] CLIA [id number] [address] [place] [address] [place] MCHC (RBC) [Mass/Vol] 31.4 g/dL Normal 30.5-36.0 [facility] Comment on above: Order Comment: Speci men Type: BLOOD SPECIMEN [facility] Address: [address] [place] [address] Performed By: #### 5 7021-8 #### [facility] CLIA [id number] [address] [place] [address] [place] MCV (RBC) [Entitic vol] 84.2 fL Normal 80.0-100.0 [facility] Comment on above: Order Comment: Speci men Type: BLOOD SPECIMEN [facility] Address: [address] [place] [address] Performed By: #### 5 7021-8 #### [facility] CLIA [id number] [address] [place] [address] [place] Monocytes (Bld) [#/Vol] 0.62 10*3/uL Normal <0.87 [facility] Comment on above: Order Comment: Speci men Type: BLOOD SPECIMEN [facility] Address: [address] [place] [address] Performed By: #### 5 7021-8 #### [facility] CLIA [id number] [address] [place] [address] [place] Monocytes/100 WBC (Bld) 7.8 % Normal [facility] Comment on above: Order Comment: Speci men Type: BLOOD SPECIMEN [facility] Address: [address] [place] [address] Performed By: #### 5 7021-8 #### [facility] CLIA [id number] [address] [place] [address] [place] Neutrophils (Bld) [#/Vol] 4.96 10*3/uL Normal 1.45-7.50 [facility] Comment on above: Order Comment: Speci men Type: BLOOD SPECIMEN [facility] Address: [address] [place] [address] Performed By: #### 5 7021-8 #### [facility] CLIA [id number] [address] [place] [address] [place] Neutrophils/100 WBC (Bld) 62.0 % Normal [facility] Comment on above: Order Comment: Speci men Type: BLOOD SPECIMEN [facility] Address: [address] [place] [address] Performed By: #### 5 7021-8 #### [facility] CLIA [id number] [address] [place] [address] [place] Nucleated RBC (Bld) [#/Vol] 10*3/uL Normal <0.01 [facility] Comment on above: Order Comment: Speci men Type: BLOOD SPECIMEN [facility] Address: [address] [place] [address] Performed By: #### 5 7021-8 #### [facility] CLIA [id number] [address] [place] [address] [place] Nucleated RBC/100 WBC (Bld) [Ratio] 0.0 /100 WBC Normal [facility] Comment on above: Order Comment: Speci men Type: BLOOD SPECIMEN [facility] Address: [address] [place] [address] Performed By: #### 5 7021-8 #### [facility] CLIA [id number] [address] [place] [address] [place] Platelet mean volume (Bld) [Entitic vol] 9.3 fL Normal 9.0-12.7 [facility] Comment on above: Order Comment: Speci men Type: BLOOD SPECIMEN [facility] Address: [address] [place] [address] Performed By: #### 5 7021-8 #### [facility] CLIA [id number] [address] [place] [address] [place] Platelets (Bld) [#/Vol] 208 10*3/uL Normal 150-400 [facility] Comment on above: Order Comment: Speci men Type: BLOOD SPECIMEN [facility] Address: [address] [place] [address] Performed By: #### 5 7021-8 #### [facility] CLIA [id number] [address] [place] [address] [place] RBC (Bld) [#/Vol] 3.55 10*6/uL Low 4.20-6.00 [facility] Comment on above: Order Comment: Speci men Type: BLOOD SPECIMEN [facility] Address: [address] [place] [address] Performed By: #### 5 7021-8 #### [facility] CLIA [id number] [address] [place] [address] [place] WBC (Bld) [#/Vol] 7.99 10*3/uL Normal 3.70-11.00 [facility] Comment on above: Order Comment: Speci men Type: BLOOD SPECIMEN [facility] Address: [address] [place] [address] Performed By: #### 5 7021-8 #### [facility] CLIA [id number] [address] [place] [address] [place] CONSULTon 11-03-2023 CONSULT HNO ID: [id number] Author: CK HU MD Service: Neurology General [...] (DULCOLAX) 10 mg RECTAL DAILY phenol 1 Jachin (CHLORASEPTIC) 1 Jachin MUCOUS MEMBRANE (TOPICAL MOUTH AND THROAT) q 2 H PRN Or benzocaine-menthol 1 Lozenge (CHLORASEPTIC) 1 Lozenge MUCOUS MEMBRANE (TOPICAL MOUTH AND THROAT) q 2 H PRN clomiPRAMINE 75 mg cap(s) (ANAFRANIL) 75 mg ORAL AT BEDTIME lithium carbonate 300 mg cap(s) (ESKALITH) 300 mg ORAL BID sertraline (ZOLOFT (more content not included)... Normal [facility] CT BRAIN WO IVCONon 11-03-19 CT BRAIN WO IVCON * * *Final Report* * * DATE OF EXAM: Nov 03 2023 7:42PM [facility] [place] BRAIN WO IVCON / [...] reduction techniques were required COMPARISON: None. 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 Post-operative change: [...] No clear evidence of an acute abnormality. Chha: PSCB Transcribe Date/Time: Nov 03 2023 7:43P Dictated by : HERMAN DOWD MD This examination was interpreted and the report reviewed and electronically signed by: HERMAN DOWD MD on Nov 03 2023 7:44PM EST [id number] Normal [facility] [place], Bld SerPl-sCncon [place] [Moles/Vol] 0.5 mmol/L Low 0.6-1.2 [facility] Comment on above: Order Comment: Specdeshawn zuñiga Type: BLOOD SPECIMEN [facility] Address: [address] [place] [address] Result Comment: Refe rence ranges and high/low indicator flags are provided as general guidelines only. The treating physician must determine appropriate target levels/dosing based on the specific clinical situation. Performed By: #### 1 4334-7, 4086-5 #### [facility] CLIA [id number] [address] [place] [address] [place] Magnesium SerPl-mCncon 11-02 Magnesium [Mass/Vol] 2.2 mg/dL Normal 1.7-2.3 [facility] Comment on above: Order Comment: Sana zuñiga Type: BLOOD SPECIMEN [facility] Address: [address] [place] [address] Performed By: #### 2 777-1, 05459-8, 59863-3 #### [facility] CLIA [id number] [address] [place] [address] [place] Phosphate SerPl-mCncon 11-02 Phosphate [Mass/Vol] 2.5 mg/dL Low 2.7-4.8 [facility] [place] Comment on above: Order Comment: Sana zuñiga Type: BLOOD SPECIMEN [facility]ing Facility[facility] Address: [address] [place] [address] Performed By: #### 2 777-1, 80092-9, 64861-3 #### [facility] CLIA [id number] [address] [place] [address] [place] THERAPY NTon 11-03-2023 THERAPY NT HNO ID: [id number] Author: ANKITA BLACKBURN PT, DPT Service: Physical Therapy Author Type: Physical Therapist Type: Therapy (PT/OT/Speech/Resp) Filed: 11/03/2023 13:48 Note Text: PHYSICAL THERAPY MISSED VISIT SERVICE DATE: 11/03/2023 SERVICE TIME: [facility] ROOM: [place] [address] Patient not seen due to Patient Not Available. Another service at bedside upon time of arrival x2 attempts. Will follow up as able/appropriate. SIGNATURE: Ankita Blackburn PT, DPT PATIENT NAME: Johnny Devine DATE: November 03, 2023 TIME: 1:48 PM Normal [facility] Valproate SerPl-mCncon 11-02 Valproate [Mass/Vol] 53.0 ug/mL Normal 50.0-100.0 [facility] [place] Comment on above: Order Comment: Sana zuñiga Type: BLOOD SPECIMEN [facility] Address: [address] [place] [address] Result Comment: Refe rence ranges and high/low indicator flags are provided as general guidelines only. The treating physician must determine appropriate target levels/dosing based on the specific clinical situation. Performed By: #### 1 4334-7, 4086-5 #### [facility] CLIA [id number] [address] [place] [address] [place] Basic metabolic 2000 panelon 11-02-2023 Anion gap [Moles/Vol] 8 mmol/L Low 9-18 [facility] Comment on above: Order Comment: Speci men Type: BLOOD SPECIMEN [facility]ing Facility[facility] Address: [address] [place], [place] [address] Performed By: #### 2 777-1, 05004-8, #### [facility] CLIA [id number] [address] [place], [place] [address] [place] Calcium [Mass/Vol] 7.7 mg/dL Low 8.5-10.2 [facility] Comment on above: Order Comment: Speci men Type: BLOOD SPECIMEN Ordering [facility]: [facility] Address: [address] [place] [address] Performed By: #### 2 777-1, 77835-1, #### [facility] CLIA [id number] [address] [place] [address] [place] Chloride [Moles/Vol] 109 mmol/L High 97-105 [facility] [place] Comment on above: Order Comment: Speci men Type: BLOOD SPECIMEN [facility] Address: [address] [place] [address] Performed By: #### 2 777-1, 94548-6, #### [facility] CLIA [id number] [address] [place] [address] [place] CO2 [Moles/Vol] 24 mmol/L Normal 22-30 [facility] Comment on above: Order Comment: Speci men Type: BLOOD SPECIMEN [facility] Address: [address] [place] [address] Performed By: #### 2 777-1, 90539-4, #### [facility] CLIA [id number] [address] [place] [address] [place] Creatinine [Mass/Vol] 0.66 mg/dL Low 0.73-1.22 [facility] Comment on above: Order Comment: Speci men Type: BLOOD SPECIMEN Ordering Facility[facility] Address: [address] [place] [address] Performed By: #### 2 777-1, 83362-2, 58517-4 #### [facility] CLIA [id number] [address] [place] [address] [place] Creatinine and Glomerular filtration rate.predicted panel (S/P/Bld) 129 mL/min/1.73m??? Normal >=60 [facility] Comment on above: Order Comment: Sana zuñiga Type: BLOOD SPECIMEN [facility] Address: [address] [place] [address] Result Comment: Lor mated Glomerular Filtration Rate [...] actual GFR. Performed By: #### 2 777-1, 01416-0, #### [facility] CLIA [id number] [address] [place] [address] [place] Glucose [Mass/Vol] 109 mg/dL High 74-99 [facility] Comment on above: Order Comment: Sana zuñiga Type: BLOOD SPECIMEN [facility]ing [facility] Address: [address] [place] [address] Result Comment: The [place] Diabetes Association (ADA) provides guidance for cutoff [...] Standards of Medical Care in Diabetes 2016, [place] Diabetes Association. Diabetes Care. 2016.39(Suppl 1). Performed By: #### 2 777-1, 53653-6, #### [facility] CLIA [id number] [address] [place] [address] [place] Potassium [Moles/Vol] 3.5 mmol/L Low 3.7-5.1 [facility] Comment on above: Order Comment: Speci men Type: BLOOD SPECIMEN [facility] Address: [address] [place] [address] Performed By: #### 2 777-1, 26044-7, #### [facility] CLIA [id number] [address] [place] [address] [place] Sodium [Moles/Vol] 141 mmol/L Normal 136-144 [facility] Comment on above: Order Comment: Speci men Type: BLOOD SPECIMEN [facility] Address: [address] [place] [address] Performed By: #### 2 777-1, 87865-2, #### [facility] CLIA [id number] [address] [place] [address] [place] Urea nitrogen [Mass/Vol] 7 mg/dL Low 9-24 [facility] Comment on above: Order Comment: Speci men Type: BLOOD SPECIMEN [facility] Address: [address] [place] [address] Performed By: #### 2 777-1, 30185-5, #### [facility] CLIA [id number] [address] [place], [place] [address] [place] CBC W Auto Differential pane l (Bld)on 11-02-2023 Basophils (Bld) [#/Vol] 0.04 10*3/uL Normal <0.11 [facility] Comment on above: Order Comment: Speci men Type: BLOOD SPECIMEN [facility] Address: [address] [place] [address] Performed By: #### 2 4321-2, , 2776-08 #### [facility] CLIA [id number] [address] [place] [address] [place] Basophils/100 WBC (Bld) 0.5 % Normal [facility] Comment on above: Order Comment: Speci men Type: BLOOD SPECIMEN [facility] Address: [address] [place] [address] Performed By: #### 2 4321-2, , 2776-08 #### [facility] CLIA [id number] [address] [place] [address] [place] Differential cell count method Nom (Bld) Auto Normal [facility] Comment on above: Order Comment: Speci men Type: BLOOD SPECIMEN [facility] Address: [address] [place] [address] Performed By: #### 2 432-2, , 2776-08 #### [facility] CLIA [id number] [address] [place] [address] [place] Eosinophils (Bld) [#/Vol] 0.24 10*3/uL Normal <0.46 [facility] Comment on above: Order Comment: Speci men Type: BLOOD SPECIMEN [facility] Address: [address] [place] [address] Performed By: #### 2 4321-2, , 2776-08 #### [facility] CLIA [id number] [address] [place] [address] [place] Eosinophils/100 WBC (Bld) 3.0 % Normal [facility] Comment on above: Order Comment: Speci men Type: BLOOD SPECIMEN [facility] Address: [address] [place] [address] Performed By: #### 2 4321-2, , 2776-08 #### [facility] CLIA [id number] [address] [place] [address] [place] Erythrocyte distribution width (RBC) [Ratio] 14.0 % Normal 11.5-15.0 [facility] Comment on above: Order Comment: Speci men Type: BLOOD SPECIMEN [facility] Address: [address] [place] [address] Performed By: #### 2 4321-2, , 2776-08 #### [facility] CLIA [id number] [address] [place] [address] [place] Hematocrit (Bld) [Volume fraction] 36.5 % Low 39.0-51.0 [facility] Comment on above: Order Comment: Speci men Type: BLOOD SPECIMEN [facility] Address: [address] [place] [address] Performed By: #### 2 4321-2, , 2776-08 #### [facility] CLIA [id number] [address] [place] [address] [place] Hemoglobin (Bld) [Mass/Vol] 11.2 g/dL Low 13.0-17.0 [facility] Comment on above: Order Comment: Speci men Type: BLOOD SPECIMEN [facility] Address: [address] [place] [address] Performed By: #### 2 4321-2, , 2776-08 #### [facility] CLIA [id number] [address] [place] [address] [place] Immature granulocytes (Bld) [#/Vol] 0.10 10*3/uL High <0.10 [facility] Comment on above: Order Comment: Speci men Type: BLOOD SPECIMEN [facility] Address: [address] [place] [address] Performed By: #### 2 4321-2, , 2776-08 #### [facility] CLIA [id number] [address] [place] [address] [place] Immature granulocytes/100 WBC (Bld) 1.3 % Normal [facility] Comment on above: Order Comment: Speci men Type: BLOOD SPECIMEN Order[facility] Address: [address] [place] [address] Performed By: #### 2 4321-2, , 2776-08 #### [facility] CLIA [id number] [address] [place] [address] [place] Lymphocytes (Bld) [#/Vol] 1.78 10*3/uL Normal 1.00-4.00 [facility] Comment on above: Order Comment: Speci men Type: BLOOD SPECIMEN [facility] Address: [address] [place] [address] Performed By: #### 2 432-2, , 2776-08 #### [facility] CLIA [id number] [address] [place] [address] [place] Lymphocytes/100 WBC (Bld) 22.3 % Normal [facility] Comment on above: Order Comment: Speci men Type: BLOOD SPECIMEN [facility] Address: [address] [place] [address] Performed By: #### 2 4321-2, , 2776-08 #### [facility] CLIA [id number] [address] [place] [address] [place] MCH (RBC) [Entitic mass] 26.2 pg Normal 26.0-34.0 [facility] Comment on above: Order Comment: Speci men Type: BLOOD SPECIMEN [facility] Address: [address] [place] [address] Performed By: #### 2 4321-2, , 2776-08 #### [facility] CLIA [id number] [address] [place] [address] [place] MCHC (RBC) [Mass/Vol] 30.7 g/dL Normal 30.5-36.0 [facility] Comment on above: Order Comment: Speci men Type: BLOOD SPECIMEN [facility] Address: [address] [place] [address] Performed By: #### 2 4321-2, , 2776-08 #### [facility] CLIA [id number] [address] [place] [address] [place] MCV (RBC) [Entitic vol] 85.5 fL Normal 80.0-100.0 [facility] Comment on above: Order Comment: Speci men Type: BLOOD SPECIMEN Order[facility] Address: [address] [place] [address] Performed By: #### 2 4321-2, , 2776-08 #### [facility] CLIA [id number] [address] [place] [address] [place] Monocytes (Bld) [#/Vol] 0.58 10*3/uL Normal <0.87 [facility] Comment on above: Order Comment: Speci men Type: BLOOD SPECIMEN [facility] Address: [address] [place] [address] Performed By: #### 2 4321-2, , 2776-08 #### [facility] CLIA [id number] [address] [place] [address] [place] Monocytes/100 WBC (Bld) 7.3 % Normal [facility] Comment on above: Order Comment: Speci men Type: BLOOD SPECIMEN [facility] Address: [address] [place] [address] Performed By: #### 2 4321-2, , 2776-08 #### [facility] CLIA [id number] [address] [place] [address] [place] Neutrophils (Bld) [#/Vol] 5.24 10*3/uL Normal 1.45-7.50 [facility] Comment on above: Order Comment: Speci men Type: BLOOD SPECIMEN [facility] Address: [address] [place] [address] Performed By: #### 2 4321-2, , 2776-08 #### [facility] CLIA [id number] [address] [place] [address] [place] Neutrophils/100 WBC (Bld) 65.6 % Normal [facility] Comment on above: Order Comment: Speci men Type: BLOOD SPECIMEN [facility] Address: [address] [place] [address] Performed By: #### 2 4321-2, , 2776-08 #### [facility] CLIA [id number] [address] [place] [address] [place] Nucleated RBC (Bld) [#/Vol] 10*3/uL Normal <0.01 [facility] Comment on above: Order Comment: Speci men Type: BLOOD SPECIMEN [facility] Address: [address] [place] [address] Performed By: #### 2 4321-2, , 2776-08 #### [facility] CLIA [id number] [address] [place] [address] [place] Nucleated RBC/100 WBC (Bld) [Ratio] 0.0 /100 WBC Normal [facility] Comment on above: Order Comment: Speci men Type: BLOOD SPECIMEN [facility] Address: [address] [place] [address] Performed By: #### 2 4321-2, , 2776-08 #### [facility] CLIA [id number] [address] [place] [address] [place] Platelet mean volume (Bld) [Entitic vol] 9.7 fL Normal 9.0-12.7 [facility] Comment on above: Order Comment: Speci men Type: BLOOD SPECIMEN [facility] Address: [address] [place] [address] Performed By: #### 2 4321-2, , 2776-08 #### [facility] CLIA [id number] [address] [place] [address] [place] Platelets (Bld) [#/Vol] 199 10*3/uL Normal 150-400 [facility] Comment on above: Order Comment: Speci men Type: BLOOD SPECIMEN [facility] Address: [address] [place] [address] Performed By: #### 2 4321-2, , 2776-08 #### [facility] CLIA [id number] [address] [place] [address] [place] RBC (Bld) [#/Vol] 4.27 10*6/uL Normal 4.20-6.00 [facility] Comment on above: Order Comment: Speci men Type: BLOOD SPECIMEN [facility] Address: [address] [place] [address] Performed By: #### 2 4321-2, , 2776-08 #### [facility] CLIA [id number] [address] [place] [address] [place] WBC (Bld) [#/Vol] 7.98 10*3/uL Normal 3.70-11.00 [facility] Comment on above: Order Comment: Speci men Type: BLOOD SPECIMEN [facility] Address: [address] [place] [address] Performed By: #### 2 4321-2, , 2776-08 #### [facility] CLIA [id number] [address] [place] [address] [place] Magnesium SerPl-mCncon 11-01 Magnesium [Mass/Vol] 2.3 mg/dL Normal 1.7-2.3 [facility] [place] Comment on above: Order Comment: Speci men Type: BLOOD SPECIMEN [facility] Address: [address] [place] [address] Performed By: #### 2 777-1, 02850-8, 69390-5 #### [facility] CLIA [id number] [address] [place] [address] [place] Phosphate SerPl-mCncon 11-01 Phosphate [Mass/Vol] 2.6 mg/dL Low 2.7-4.8 [facility] [place] Comment on above: Order Comment: Speci yogesh Type: BLOOD SPECIMEN [facility] Address: [address] [place] [address] Performed By: #### 2 777-1, 73020-5, 72088-5 #### [facility] CLIA [id number] [address] [place] [address] [place] XR ABDOMEN 1V [...] small bowel. Findings suggestive of improving ileus. Chha: [id number] Transcribe Date/Time: Nov 02 2023 11:50A Dictated by : VERONICA CARTER MD This examination was interpreted and the report reviewed and electronically signed by: VERONICA CARTER MD on Nov 02 2023 11:52AM EST [id number] N Normal [facility] Basic metabolic 2000 panelon 11-01-2023 Anion gap [Moles/Vol] 10 mmol/L Normal 9-18 [facility] Comment on above: Order Comment: Speci men Type: BLOOD SPECIMEN [facility] Address: [address] [place] [address] Performed By: #### 5 7021-8 #### [facility] CLIA [id number] [address] [place] [address] [place] Calcium [Mass/Vol] 7.9 mg/dL Low 8.5-10.2 [facility] Comment on above: Order Comment: Speci men Type: BLOOD SPECIMEN [facility] Address: [address] [place] [address] Performed By: #### 5 7021-8 #### [facility] CLIA [id number] [address] [place] [address] [place] Chloride [Moles/Vol] 114 mmol/L High 97-105 [facility] [place] Comment on above: Order Comment: Speci men Type: BLOOD SPECIMEN [facility] Address: [address] [place] [address] Performed By: #### 5 7021-8 #### [facility] CLIA [id number] [address] [place] [address] [place] CO2 [Moles/Vol] 22 mmol/L Normal 22-30 [facility] Comment on above: Order Comment: Speci men Type: BLOOD SPECIMEN [facility] Address: [address] [place] [address] Performed By: #### 5 7021-8 #### [facility] CLIA [id number] [address] [place] [address] [place] Creatinine [Mass/Vol] 0.74 mg/dL Normal 0.73-1.22 [facility] Comment on above: Order Comment: Sana zuñiga Type: BLOOD SPECIMEN [facility] Address: [address] [place] [address] Performed By: #### 5 7021-8 #### [facility] CLIA [id number] [address] [place] [address] [place] Creatinine and Glomerular filtration rate.predicted panel (S/P/Bld) 124 mL/min/1.73m??? Normal >=60 [facility] Comment on above: Order Comment: Sana zuñiga Type: BLOOD SPECIMEN [facility] Address: [address] [place] [address] Result Comment: Lor mated Glomerular Filtration Rate [...] GFR. Performed By: #### 5 7021-8 #### [facility] CLIA [id number] [address] [place] [address] [place] Glucose [Mass/Vol] 98 mg/dL Normal 74-99 [facility] Comment on above: Order Comment: Sana zuñiga Type: BLOOD SPECIMEN [facility] Address: [address] [place] [address] Result Comment: The [place] Diabetes Association (ADA) provides guidance for cutoff [...] Standards of Medical Care in Diabetes 2016, [place] Diabetes Association. Diabetes Care. 2016.39(Suppl 1). Performed By: #### 5 7021-8 #### [facility] CLIA [id number] [address] [place] [address] [place] Potassium [Moles/Vol] 3.9 mmol/L Normal 3.7-5.1 [facility] Comment on above: Order Comment: Speci men Type: BLOOD SPECIMEN [facility] Address: [address] [place] [address] Performed By: #### 5 7021-8 #### [facility] CLIA [id number] [address] [place] [address] [place] Sodium [Moles/Vol] 146 mmol/L High 136-144 [facility] Comment on above: Order Comment: Speci men Type: BLOOD SPECIMEN [facility] Address: [address] [place] [address] Performed By: #### 5 7021-8 #### [facility] CLIA [id number] [address] [place] [address] [place] Urea nitrogen [Mass/Vol] 9 mg/dL Normal 9-24 [facility] Comment on above: Order Comment: Speci men Type: BLOOD SPECIMEN [facility] Address: [address] [place] [address] Performed By: #### 5 7021-8 #### [facility] CLIA [id number] [address] [place] [address] [place] CBC W Auto Differential pane l (Bld)on 11-01-2023 Basophils (Bld) [#/Vol] 10*3/uL Normal <0.11 [facility] Comment on above: Order Comment: Speci men Type: BLOOD SPECIMENOrdering Facility: [facility] Address: [address] [place] [address] Performed By: #### 5 7021-8 ####[facility] [id number] [place] [address] [place] Basophils/100 WBC (Bld) 0.3 % Normal [facility] Comment on above: Order Comment: Speci men Type: BLOOD SPECIMENOrdering Facility: [facility] Address: [address] [place] [address] Performed By: #### 5 7021-8 ####[facility] [id number] [place] [address] [place] Differential cell count method Nom (Bld) Auto Normal [facility] Comment on above: Order Comment: Speci men Type: BLOOD SPECIMENOrdering Facility: [facility] Address: [address] [place] [address] Performed By: #### 5 7021-8 ####[facility] [id number] [place] [address] [place] Eosinophils (Bld) [#/Vol] 0.23 10*3/uL Normal <0.46 [facility] Comment on above: Order Comment: Speci men Type: BLOOD SPECIMENOrdering Facility: [facility] Address: [address] [place] [address] Performed By: #### 5 7021-8 ####[facility] [id number] [place] [address] [place] Eosinophils/100 WBC (Bld) 3.0 % Normal [facility] Comment on above: Order Comment: Speci men Type: BLOOD SPECIMENOrdering Facility: [facility] Address: [address] [place] [address] Performed By: #### 5 7021-8 ####[facility] [id number] [place] [address] [place] Erythrocyte distribution width (RBC) [Ratio] 14.6 % Normal 11.5-15.0 [facility] Comment on above: Order Comment: Speci men Type: BLOOD SPECIMENOrdering Facility: [facility] Address: [address] [place] [address] Performed By: #### 5 7021-8 ####[facility] [id number] [place] [address] [place] Hematocrit (Bld) [Volume fraction] 28.6 % Low 39.0-51.0 [facility] Comment on above: Order Comment: Speci men Type: BLOOD SPECIMENOrdering Facility: [facility] Address: [address] [place] [address] Performed By: #### 5 7021-8 ####[facility] [id number] [place] [address] [place] Hemoglobin (Bld) [Mass/Vol] 9.0 g/dL Low 13.0-17.0 [facility] Comment on above: Order Comment: Speci men Type: BLOOD SPECIMENOrdering Facility: [facility] Address: [address] [place] [address] Performed By: #### 5 7021-8 ####[facility] [id number] [place] [address] [place] Immature granulocytes (Bld) [#/Vol] 0.05 10*3/uL Normal <0.10 [facility] Comment on above: Order Comment: Speci men Type: BLOOD SPECIMENOrdering Facility: [facility] Address: [address] [place] [address] Performed By: #### 5 7021-8 ####[facility] [id number] [place] [address] [place] Immature granulocytes/100 WBC (Bld) 0.7 % Normal [facility] Comment on above: Order Comment: Speci men Type: BLOOD SPECIMENOrdering Facility: [facility] Address: [address] [place] [address] Performed By: #### 5 7021-8 ####[facility] [id number] [place] [address] [place] Lymphocytes (Bld) [#/Vol] 1.86 10*3/uL Normal 1.00-4.00 [facility] Comment on above: Order Comment: Speci men Type: BLOOD SPECIMENOrdering Facility: [facility] Address: [address] [place] [address] Performed By: #### 5 7021-8 ####[facility] [id number] [place] [address] [place] Lymphocytes/100 WBC (Bld) 24.3 % Normal [facility] Comment on above: Order Comment: Speci men Type: BLOOD SPECIMENOrdering Facility: [facility] Address: [address] [place] [address] Performed By: #### 5 7021-8 ####[facility] LABIA [id number] [place] [address] [place] MCH (RBC) [Entitic mass] 26.8 pg Normal 26.0-34.0 [facility] Comment on above: Order Comment: Speci men Type: BLOOD SPECIMENOrdering Facility: [facility] Address: [address] [place] [address] Performed By: #### 5 7021-8 ####[facility] LABIA [id number] [place] [address] [place] MCHC (RBC) [Mass/Vol] 31.5 g/dL Normal 30.5-36.0 [facility] Comment on above: Order Comment: Speci men Type: BLOOD SPECIMENOrdering Facility: [facility] Address: [address] [place] [address] Performed By: #### 5 7021-8 ####[facility] LABIA [id number] [place] [address] [place] MCV (RBC) [Entitic vol] 85.1 fL Normal 80.0-100.0 [facility] Comment on above: Order Comment: Speci men Type: BLOOD SPECIMENOrdering Facility: [facility] Address: [address] [place] [address] Performed By: #### 5 7021-8 ####[facility] LABCLIA [id number] [place] [address] [place] Monocytes (Bld) [#/Vol] 0.62 10*3/uL Normal <0.87 [facility] Comment on above: Order Comment: Speci men Type: BLOOD SPECIMENOrdering Facility: [facility] Address: [address] [place] [address] Performed By: #### 5 7021-8 ####[facility] LABCLIA [id number] [place] [address] [place] Monocytes/100 WBC (Bld) 8.1 % Normal [facility] Comment on above: Order Comment: Speci men Type: BLOOD SPECIMENOrdering Facility: [facility] Address: [address] [place] [address] Performed By: #### 5 7021-8 ####[facility] LABCLIA [id number] [place] [address] [place] Neutrophils (Bld) [#/Vol] 4.87 10*3/uL Normal 1.45-7.50 [facility] Comment on above: Order Comment: Speci men Type: BLOOD SPECIMENOrdering Facility: [facility] Address: [address] [place] [address] Performed By: #### 5 7021-8 ####[facility] LABCLIA [id number] [place] [address] [place] Neutrophils/100 WBC (Bld) 63.6 % Normal [facility] Comment on above: Order Comment: Speci men Type: BLOOD SPECIMENOrdering Facility: [facility] Address: [address] [place] [address] Performed By: #### 5 7021-8 ####[facility] LABCLIA [id number] [place] [address] [place] Nucleated RBC (Bld) [#/Vol] 10*3/uL Normal <0.01 [facility] Comment on above: Order Comment: Speci men Type: BLOOD SPECIMENOrdering Facility: [facility] Address: [address] [place] [address] Performed By: #### 5 7021-8 ####[facility] LABCLIA [id number] [place] [address] [place] Nucleated RBC/100 WBC (Bld) [Ratio] 0.0 /100 WBC Normal [facility] Comment on above: Order Comment: Speci men Type: BLOOD SPECIMENOrdering Facility: [facility] Address: [address] [place] [address] Performed By: #### 5 7021-8 ####[facility] LABCLIA [id number] [place] [address] [place] Platelet mean volume (Bld) [Entitic vol] 9.6 fL Normal 9.0-12.7 [facility] Comment on above: Order Comment: Speci men Type: BLOOD SPECIMENOrdering Facility: [facility] Address: [address] [place] [address] Performed By: #### 5 7021-8 ####[facility] LABIA [id number] [place] [address] [place] Platelets (Bld) [#/Vol] 148 10*3/uL Low 150-400 [facility] Comment on above: Order Comment: Speci men Type: BLOOD SPECIMENOrdering Facility: [facility] Address: [address] [place] [address] Performed By: #### 5 7021-8 ####[facility] LABCLIA [id number] [place] [address] [place] RBC (Bld) [#/Vol] 3.36 10*6/uL Low 4.20-6.00 [facility] Comment on above: Order Comment: Speci men Type: BLOOD SPECIMENOrdering Facility: [facility] Address: [address] [place] [address] Performed By: #### 5 7021-8 ####[facility] LABCLIA [id number] [place] [address] [place] WBC (Bld) [#/Vol] 7.65 10*3/uL Normal 3.70-11.00 [facility] Comment on above: Order Comment: Speci men Type: BLOOD SPECIMENOrdering Facility: [facility] Address: [address] [place] [address] Performed By: #### 5 7021-8 ####[facility] LABCLIA [id number] [place] [address] [place] Magnesium SerPl-mCncon 10-31 Magnesium [Mass/Vol] 2.4 mg/dL High 1.7-2.3 [facility] Comment on above: Order Comment: Speci men Type: BLOOD SPECIMEN [facility] Address: [address] [place] [address] Performed By: #### 5 7021-8 #### [facility] CLIA [id number] [address] [place] [address] [place] Phosphate SerPl-mCncon 10-31 Phosphate [Mass/Vol] 2.3 mg/dL Low 2.7-4.8 [facility] Comment on above: Order Comment: Speci men Type: BLOOD SPECIMEN [facility] Address: [address] [place] [address] Performed By: #### 5 7021-8 #### [facility] CLIA [id number] [address] [place] [address] [place] Basic metabolic 2000 panelon 10-31-2023 Anion gap [Moles/Vol] 10 mmol/L Normal 9-18 [facility] Comment on above: Order Comment: Speci men Type: BLOOD SPECIMEN [facility] Address: [address] [place] [address] Performed By: #### 2 777-1, 60045-9, #### [facility] CLIA [id number] [address] [place] [address] [place] Calcium [Mass/Vol] 7.8 mg/dL Low 8.5-10.2 [facility] Comment on above: Order Comment: Speci men Type: BLOOD SPECIMEN [facility] Address: [address] [place] [address] Performed By: #### 2 777-1, 58409-8, #### [facility] CLIA [id number] [address] [place] [address] [place] Chloride [Moles/Vol] 115 mmol/L High 97-105 [facility] Comment on above: Order Comment: Speci men Type: BLOOD SPECIMEN [facility] Address: [address] [place], [place] [address] Performed By: #### 2 777-1, 83423-5, #### [facility] CLIA [id number] [address] [place] [address] [place] CO2 [Moles/Vol] 23 mmol/L Normal 22-30 [facility] Comment on above: Order Comment: Speci men Type: BLOOD SPECIMEN [facility] Address: [address] [place], [place] [address] Performed By: #### 2 777-1, 82905-1, #### [facility] CLIA [id number] [address] [place] [address] [place] Creatinine [Mass/Vol] 0.72 mg/dL Low 0.73-1.22 [facility] Comment on above: Order Comment: Speci men Type: BLOOD SPECIMEN [facility] Address: [address] [place] [address] Performed By: #### 2 777-1, 22622-1, #### [facility] CLIA [id number] [address] [place] [address] [place] Creatinine and Glomerular filtration rate.predicted panel (S/P/Bld) 125 mL/min/1.73m??? Normal >=60 [facility] Comment on above: Order Comment: Sana zuñiga Type: BLOOD SPECIMEN [facility] Address: [address] [place] [address] Result Comment: Lor mated Glomerular Filtration Rate [...] actual GFR. Performed By: #### 2 777-1, 77393-7, #### [facility] CLIA [id number] [address] [place] [address] [place] Glucose [Mass/Vol] 93 mg/dL Normal 74-99 [facility] Comment on above: Order Comment: Sana zuñiga Type: BLOOD SPECIMEN [facility] Address: [address] [place] [address] Result Comment: The [place] Diabetes Association (ADA) provides guidance for cutoff [...] Standards of Medical Care in Diabetes 2016, [place] Diabetes Association. Diabetes Care. 2016.39(Suppl 1). Performed By: #### 2 777-1, 67776-9, #### [facility] CLIA [id number] [address] [place] [address] [place] Potassium [Moles/Vol] 3.9 mmol/L Normal 3.7-5.1 [facility] Comment on above: Order Comment: Speci men Type: BLOOD SPECIMEN [facility] Address: [address] [place] [address] Performed By: #### 2 777-1, 41199-0, #### [facility] CLIA [id number] [address] [place] [address] [place] Sodium [Moles/Vol] 148 mmol/L High 136-144 [facility] Comment on above: Order Comment: Speci men Type: BLOOD SPECIMEN [facility] Address: [address] [place] [address] Performed By: #### 2 777-1, 41428-3, #### [facility] CLIA [id number] [address] [place] [address] [place] Urea nitrogen [Mass/Vol] 8 mg/dL Low 9-24 [facility] Comment on above: Order Comment: Speci men Type: BLOOD SPECIMEN [facility] Address: [address] [place] [address] Performed By: #### 2 777-1, 69227-2, #### [facility] CLIA [id number] [address] [place] [address] [place] CBC W Auto Differential pane l (Bld)on 10-31-2023 Basophils (Bld) [#/Vol] 10*3/uL Normal <0.11 [facility] Comment on above: Order Comment: Speci men Type: BLOOD SPECIMEN [facility] Address: [address] [place] [address] Performed By: #### 5 7021-8 #### [facility] CLIA [id number] [address] [place] [address] [place] Basophils/100 WBC (Bld) 0.2 % Normal [facility] Comment on above: Order Comment: Speci men Type: BLOOD SPECIMEN [facility] Address: [address] [place] [address] Performed By: #### 5 7021-8 #### [facility] CLIA [id number] [address] [place] [address] [place] Differential cell count method Nom (Bld) Auto Normal [facility] Comment on above: Order Comment: Speci men Type: BLOOD SPECIMEN [facility] Address: [address] [place] [address] Performed By: #### 5 7021-8 #### [facility] CLIA [id number] [address] [place] [address] [place] Eosinophils (Bld) [#/Vol] 0.18 10*3/uL Normal <0.46 [facility] Comment on above: Order Comment: Speci men Type: BLOOD SPECIMEN [facility] Address: [address] [place] [address] Performed By: #### 5 7021-8 #### [facility] CLIA [id number] [address] [place] [address] [place] Eosinophils/100 WBC (Bld) 1.9 % Normal [facility] Comment on above: Order Comment: Speci men Type: BLOOD SPECIMEN [facility] Address: [address] [place] [address] Performed By: #### 5 7021-8 #### [facility] CLIA [id number] [address] [place] [address] [place] Erythrocyte distribution width (RBC) [Ratio] 14.5 % Normal 11.5-15.0 [facility] Comment on above: Order Comment: Speci men Type: BLOOD SPECIMEN [facility] Address: [address] [place] [address] Performed By: #### 5 7021-8 #### [facility] CLIA [id number] [address] [place] [address] [place] Hematocrit (Bld) [Volume fraction] 30.2 % Low 39.0-51.0 [facility] Comment on above: Order Comment: Speci men Type: BLOOD SPECIMEN [facility] Address: [address] [place] [address] Performed By: #### 5 7021-8 #### [facility] CLIA [id number] [address] [place] [address] [place] Hemoglobin (Bld) [Mass/Vol] 9.4 g/dL Low 13.0-17.0 [facility] Comment on above: Order Comment: Speci men Type: BLOOD SPECIMEN [facility] Address: [address] [place] [address] Performed By: #### 5 7021-8 #### [facility] CLIA [id number] [address] [place] [address] [place] Immature granulocytes (Bld) [#/Vol] 0.06 10*3/uL Normal <0.10 [facility] Comment on above: Order Comment: Speci men Type: BLOOD SPECIMEN [facility] Address: [address] [place] [address] Performed By: #### 5 7021-8 #### [facility] CLIA [id number] [address] [place] [address] [place] Immature granulocytes/100 WBC (Bld) 0.6 % Normal [facility] Comment on above: Order Comment: Speci men Type: BLOOD SPECIMEN [facility] Address: [address] [place] [address] Performed By: #### 5 7021-8 #### [facility] CLIA [id number] [address] [place] [address] [place] Lymphocytes (Bld) [#/Vol] 1.61 10*3/uL Normal 1.00-4.00 [facility] Comment on above: Order Comment: Speci men Type: BLOOD SPECIMEN [facility] Address: [address] [place] [address] Performed By: #### 5 7021-8 #### [facility] CLIA [id number] [address] [place] [address] [place] Lymphocytes/100 WBC (Bld) 16.8 % Normal [facility] Comment on above: Order Comment: Speci men Type: BLOOD SPECIMEN [facility] Address: [address] [place] [address] Performed By: #### 5 7021-8 #### [facility] CLIA [id number] [address] [place] [address] [place] MCH (RBC) [Entitic mass] 26.5 pg Normal 26.0-34.0 [facility] Comment on above: Order Comment: Speci men Type: BLOOD SPECIMEN [facility] Address: [address] [place] [address] Performed By: #### 5 7021-8 #### [facility] CLIA [id number] [address] [place] [address] [place] MCHC (RBC) [Mass/Vol] 31.1 g/dL Normal 30.5-36.0 [facility] Comment on above: Order Comment: Speci men Type: BLOOD SPECIMEN [facility] Address: [address] [place] [address] Performed By: #### 5 7021-8 #### [facility] CLIA [id number] [address] [place] [address] [place] MCV (RBC) [Entitic vol] 85.1 fL Normal 80.0-100.0 [facility] Comment on above: Order Comment: Speci men Type: BLOOD SPECIMEN [facility] Address: [address] [place] [address] Performed By: #### 5 7021-8 #### [facility] CLIA [id number] [address] [place] [address] [place] Monocytes (Bld) [#/Vol] 0.88 10*3/uL High <0.87 [facility] Comment on above: Order Comment: Speci men Type: BLOOD SPECIMEN [facility] Address: [address] [place] [address] Performed By: #### 5 7021-8 #### [facility] CLIA [id number] [address] [place] [address] [place] Monocytes/100 WBC (Bld) 9.2 % Normal [facility] Comment on above: Order Comment: Speci men Type: BLOOD SPECIMEN [facility] Address: [address] [place] [address] Performed By: #### 5 7021-8 #### [facility] CLIA [id number] [address] [place] [address] [place] Neutrophils (Bld) [#/Vol] 6.84 10*3/uL Normal 1.45-7.50 [facility] Comment on above: Order Comment: Speci men Type: BLOOD SPECIMEN [facility] Address: [address] [place] [address] Performed By: #### 5 7021-8 #### [facility] CLIA [id number] [address] [place] [address] [place] Neutrophils/100 WBC (Bld) 71.3 % Normal [facility] Comment on above: Order Comment: Speci men Type: BLOOD SPECIMEN [facility] Address: [address] [place] [address] Performed By: #### 5 7021-8 #### [facility] CLIA [id number] [address] [place] [address] [place] Nucleated RBC (Bld) [#/Vol] 10*3/uL Normal <0.01 [facility] Comment on above: Order Comment: Speci men Type: BLOOD SPECIMEN [facility] Address: [address] [place] [address] Performed By: #### 5 7021-8 #### [facility] CLIA [id number] [address] [place] [address] [place] Nucleated RBC/100 WBC (Bld) [Ratio] 0.0 /100 WBC Normal [facility] Comment on above: Order Comment: Speci men Type: BLOOD SPECIMEN [facility] Address: [address] [place] [address] Performed By: #### 5 7021-8 #### [facility] CLIA [id number] [address] [place] [address] [place] Platelet mean volume (Bld) [Entitic vol] 9.8 fL Normal 9.0-12.7 [facility] Comment on above: Order Comment: Speci men Type: BLOOD SPECIMEN [facility] Address: [address] [place] [address] Performed By: #### 5 7021-8 #### [facility] CLIA [id number] [address] [place] [address] [place] Platelets (Bld) [#/Vol] 144 10*3/uL Low 150-400 [facility] Comment on above: Order Comment: Speci men Type: BLOOD SPECIMEN [facility] Address: [address] [place] [address] Result Comment: Resu lts checked and verified.No clot detected. Performed By: #### 5 7021-8 #### [facility] CLIA [id number] [address] [place] [address] [place] RBC (Bld) [#/Vol] 3.55 10*6/uL Low 4.20-6.00 [facility] Comment on above: Order Comment: Speci men Type: BLOOD SPECIMEN [facility] Address: [address] [place] [address] Performed By: #### 5 7021-8 #### [facility] CLIA [id number] [address] [place] [address] [place] WBC (Bld) [#/Vol] 9.59 10*3/uL Normal 3.70-11.00 [facility] Comment on above: Order Comment: Speci men Type: BLOOD SPECIMEN [facility] Address: [address] [place] [address] Performed By: #### 5 7021-8 #### [facility] CLIA [id number] [address] [place] [address] [place] CBC panel Auto (Bld)on 10-30 Erythrocyte distribution width (RBC) [Ratio] 14.5 % Normal 11.5-15.0 [facility] Comment on above: Order Comment: Speci men Type: BLOOD SPECIMEN [facility] Address: [address] [place] [address] Performed By: #### 5 7021-8 #### [facility] CLIA [id number] [address] [place] [address] [place] Hematocrit (Bld) [Volume fraction] 28.6 % Low 39.0-51.0 [facility] Comment on above: Order Comment: Speci men Type: BLOOD SPECIMEN [facility] Address: [address] [place] [address] Performed By: #### 5 7021-8 #### [facility] CLIA [id number] [address] [place] [address] [place] Hemoglobin (Bld) [Mass/Vol] 9.1 g/dL Low 13.0-17.0 [facility] Comment on above: Order Comment: Speci men Type: BLOOD SPECIMEN [facility] Address: [address] [place] [address] Performed By: #### 5 7021-8 #### [facility] CLIA [id number] [address] [place] [address] [place] MCH (RBC) [Entitic mass] 27.1 pg Normal 26.0-34.0 [facility] Comment on above: Order Comment: Speci men Type: BLOOD SPECIMEN [facility] Address: [address] [place] [address] Performed By: #### 5 7021-8 #### [facility] CLIA [id number] [address] [place] [address] [place] MCHC (RBC) [Mass/Vol] 31.8 g/dL Normal 30.5-36.0 [facility] Comment on above: Order Comment: Speci men Type: BLOOD SPECIMEN [facility] Address: [address] [place] [address] Performed By: #### 5 7021-8 #### [facility] CLIA [id number] [address] [place] [address] [place] MCV (RBC) [Entitic vol] 85.1 fL Normal 80.0-100.0 [facility] Comment on above: Order Comment: Speci men Type: BLOOD SPECIMEN [facility] Address: [address] [place] [address] Performed By: #### 5 7021-8 #### [facility] CLIA [id number] [address] [place] [address] [place] Nucleated RBC (Bld) [#/Vol] 10*3/uL Normal <0.01 [facility] Comment on above: Order Comment: Speci men Type: BLOOD SPECIMEN [facility] Address: [address] [place] [address] Performed By: #### 5 7021-8 #### [facility] CLIA [id number] [address] [place] [address] [place] Platelet mean volume (Bld) [Entitic vol] 10.1 fL Normal 9.0-12.7 [facility] Comment on above: Order Comment: Speci men Type: BLOOD SPECIMEN [facility] Address: [address] [place] [address] Performed By: #### 5 7021-8 #### [facility] CLIA [id number] [address] [place] [address] [place] Platelets (Bld) [#/Vol] 180 10*3/uL Normal 150-400 [facility] Comment on above: Order Comment: Speci men Type: BLOOD SPECIMEN [facility] Address: [address] [place] [address] Performed By: #### 5 7021-8 #### [facility] CLIA [id number] [address] [place] [address] [place] RBC (Bld) [#/Vol] 3.36 10*6/uL Low 4.20-6.00 [facility] Comment on above: Order Comment: Speci men Type: BLOOD SPECIMEN [facility] Address: [address] [place] [address] Performed By: #### 5 7021-8 #### [facility] CLIA [id number] [address] [place] [address] [place] WBC (Bld) [#/Vol] 10.06 10*3/uL Normal 3.70-11.00 [facility] Comment on above: Order Comment: Speci men Type: BLOOD SPECIMEN [facility] Address: [address] [place] [address] Performed By: #### 5 7021-8 #### [facility] CLIA [id number] [address] [place] [address] [place] CONSULT PROGon 10-31-2023 CONSULT PROG HNO ID: [id number] Author: HEAVEN CAMACHO MD Service: Urology Author Type: Resident Type: Consult Progress Note Filed: 10/31/2023 06:56 Note Text: [facility] UROLOGY PROGRESS NOTE Name: Johnny Devine Bed: H071 [id number] Date: 10/31/[address] [facility] Urology Service Pager: [phone] ASSESSMENT AND PLAN Johnny Devine is a [...] affiliate, Dr. Joseph Camacho MD Urology Resident [facility] Pager [phone] For weekend or after hours issues please page the on-call urology pager [phone] 10/31/2023 6:48 AM Subjective SUBJECTIVE - See [...] Imaging All relevant recent imaging reviewed Normal [facility] Comprehensive metabolic 2000 panelon 10-31-2023 Albumin [Mass/Vol] 3.1 g/dL Low 3.9-4.9 [facility] Comment on above: Order Comment: Speci men Type: BLOOD SPECIMEN [facility] Address: [address] [place] [address] Performed By: #### 5 7021-8 #### [facility] CLIA [id number] [address] [place] [address] [place] ALP [Catalytic activity/Vol] 31 U/L Low 38-113 [facility] Comment on above: Order Comment: Speci men Type: BLOOD SPECIMEN [facility] Address: [address] [place] [address] Performed By: #### 5 7021-8 #### [facility] CLIA [id number] [address] [place] [address] [place] ALT [Catalytic activity/Vol] 6 U/L Low 10-54 [facility] Comment on above: Order Comment: Speci men Type: BLOOD SPECIMEN [facility] Address: [address] [place] [address] Performed By: #### 5 7021-8 #### [facility] CLIA [id number] [address] [place] [address] [place] Anion gap [Moles/Vol] 6 mmol/L Low 9-18 [facility] Comment on above: Order Comment: Speci men Type: BLOOD SPECIMEN [facility] Address: [address] [place] [address] Performed By: #### 5 7021-8 #### [facility] CLIA [id number] [address] [place] [address] [place] AST [Catalytic activity/Vol] 13 U/L Low 14-40 [facility] Comment on above: Order Comment: Speci men Type: BLOOD SPECIMEN [facility] Address: [address] [place] [address] Performed By: #### 5 7021-8 #### [facility] CLIA [id number] [address] [place] [address] [place] Bilirubin [Mass/Vol] mg/dL Low 0.2-1.3 [facility] Comment on above: Order Comment: Speci men Type: BLOOD SPECIMEN [facility] Address: [address] [place] [address] Performed By: #### 5 7021-8 #### [facility] CLIA [id number] [address] [place] [address] [place] Calcium [Mass/Vol] 7.4 mg/dL Low 8.5-10.2 [facility] Comment on above: Order Comment: Speci men Type: BLOOD SPECIMEN Ordering Facility: [facility] Address: [address] [place] [address] Performed By: #### 5 7021-8 #### [facility] CLIA [id number] [address] [place] [address] [place] Chloride [Moles/Vol] 115 mmol/L High 97-105 [facility] Comment on above: Order Comment: Speci men Type: BLOOD SPECIMEN [facility] Address: [address] [place] [address] Performed By: #### 5 7021-8 #### [facility] CLIA [id number] [address] [place] [address] [place] CO2 [Moles/Vol] 26 mmol/L Normal 22-30 [facility] Comment on above: Order Comment: Speci men Type: BLOOD SPECIMEN [facility] Address: [address] [place] [address] Performed By: #### 5 7021-8 #### [facility] CLIA [id number] [address] [place] [address] [place] Creatinine [Mass/Vol] 0.73 mg/dL Normal 0.73-1.22 [facility] Comment on above: Order Comment: Speci men Type: BLOOD SPECIMEN [facility] Address: [address] [place] [address] Performed By: #### 5 7021-8 #### [facility] CLIA [id number] [address] [place] [address] [place] Creatinine and Glomerular filtration rate.predicted panel (S/P/Bld) 125 mL/min/1.73m??? Normal >=60 [facility] Comment on above: Order Comment: Speci men Type: BLOOD SPECIMEN [facility] Address: [address] [place] [address] Result Comment: Lor mated Glomerular Filtration Rate [...] GFR. Performed By: #### 5 7021-8 #### [facility] CLIA [id number] [address] [place] [address] [place] Glucose [Mass/Vol] 103 mg/dL High 74-99 [facility] Comment on above: Order Comment: Sana zuñiga Type: BLOOD SPECIMEN [facility] Address: [address] [place] [address] Result Comment: The [place] Diabetes Association (ADA) provides guidance for cutoff [...] Standards of Medical Care in Diabetes 2016, [place] Diabetes Association. Diabetes Care. 2016.39(Suppl 1). Performed By: #### 5 7021-8 #### [facility] CLIA [id number] [address] [place] [address] [place] Potassium [Moles/Vol] 4.0 mmol/L Normal 3.7-5.1 [facility] Comment on above: Order Comment: Sana zuñiga Type: BLOOD SPECIMEN Order[facility] Address: [address] [place], [place] [address] Performed By: #### 5 7021-8 #### [facility] CLIA [id number] [address] [place] [address] [place] Protein [Mass/Vol] 5.6 g/dL Low 6.3-8.0 [facility] Comment on above: Order Comment: Speci men Type: BLOOD SPECIMEN [facility] Address: [address] [place] [address] Performed By: #### 5 7021-8 #### [facility] CLIA [id number] [address] [place] [address] [place] Sodium [Moles/Vol] 147 mmol/L High 136-144 [facility] Comment on above: Order Comment: Speci men Type: BLOOD SPECIMEN [facility] Address: [address] [place] [address] Performed By: #### 5 7021-8 #### [facility] CLIA [id number] [address] [place] [address] [place] Urea nitrogen [Mass/Vol] 9 mg/dL Normal 9-24 [facility] Comment on above: Order Comment: Speci men Type: BLOOD SPECIMEN [facility] Address: [address] [place] [address] Performed By: #### 5 7021-8 #### [facility] CLIA [id number] [address] [place] [address] [place] [id number] 10-31-2023 ECG01 Ventricular Rate : 9 3 BPM Atrial Rate : 93 BPM P-R Interval : 146 ms QRS Duration : 90 ms Q-T Interval : 394 ms QTC Calculation(Bazett) : 489 ms Calculated P Brainard : 7 degrees Calculated R Brainard : 11 degrees Calculated T Brainard : -11 degrees NORMAL SINUS RHYTHM ANTEROLATERAL T WAVE ABNORMALITY BORDERLINE PROLONGED QTC ABNORMAL ECG Confirmed by TRENT BYRD MD ([id number]) on 11/06/2023 9:42:18 AM NAME : JOHNNY DEVINE PID : [id number] : 1990 Gender : Male Race : ORD : Procedure Date : Oct 31 2023 15:33:44 Edit Date : Nov 06 2023 09:42:18 Diagnosis: NORMAL SINUS RHYTHM ANTEROLATERAL T WAVE ABNORMALITY BORDERLINE PROLONGED QTC ABNORMAL ECG Confirmed by TRENT BYRD MD ([id number]) on 11/06/2023 9:42:18 AM Test Reason : AMET Location : 74 : H71 [id number] Overread By : TRENT BYRD MD Edited By : TRENT BYRD MD Referred By : PHOENIX CARDENAS Acquired by : MARI DUMONT [facility] EMERon 10-31-2023 [facility] HNO ID: [id number] Author: PASTORA KINGSLEY APRN.CNP Service: Critical Care [...] October 31, 2023 TIME: 4:13 PM Normal [facility] Magnesium SerPl-mCncon 10-30 Magnesium [Mass/Vol] 2.2 mg/dL Normal 1.7-2.3 [facility] Comment on above: Order Comment: Speci men Type: BLOOD SPECIMENOrdering Facility[facility] Address: [address] [place] [address] Performed By: #### 1 9123-9, 2777-1 ####[facility] [id number] [address] [place] Magnesium [Mass/Vol] 2.1 mg/dL Normal 1.7-2.3 [facility] Comment on above: Order Comment: Speci men Type: BLOOD SPECIMEN [facility] Address: [address] [place] [address] Performed By: #### 2 777-1, 15528-5, 86179-4 #### [facility] CLIA [id number] [address] [place] [address] [place] NURSING PROGon 10-31-2023 NURSING PROG HNO ID: [id number] Author: PAZ RIGGINS, RN Service: Nursing Author Type: Registered Nurse Type: Nursing Progress Note Filed: 10/31/2023 16:32 Note Text: Called into patients room by brother who stated patient was shaking hard and having seizure like activity, on entering room patient was tachypneic and breathing hard, AMET activated. Chest xray ordered, EKG done, labs done, oxygen 89 on RA, 2L NC applied. Normal [facility] Phosphate SerPl-mCncon 10-30 Phosphate [Mass/Vol] 1.4 mg/dL Low 2.7-4.8 [facility] Comment on above: Order Comment: Speci men Type: BLOOD SPECIMENOrdering [facility] Address: [address] [place] [address] Performed By: #### 1 9123-9, 2777-1 ####[facility] [id number] [facility] [place] [address] [place] Phosphate [Mass/Vol] 2.1 mg/dL Low 2.7-4.8 [facility] Comment on above: Order Comment: Speci men Type: BLOOD SPECIMEN [facility] Address: [address] [place] [address] Performed By: #### 2 777-1, 37985-3, 39093-4 #### [facility] CLIA [id number] [address] [place] [address] [place] [address] [place] XR ABDOMEN 1V [...] abnormality. Lung bases are not well seen. Chha: [facility] Transcribe Date/Time: Oct 31 2023 5:15P Dictated by : LEONEL ALONZO MD This examination was interpreted and the report reviewed and electronically signed by: LEONEL ALONZO MD on Oct 31 2023 5:22PM EST [id number] N Normal [facility] XR CHEST 1V FRONTAL PORTon 0 [...] cardiomediastinal silhouette. Other: . IMPRESSION: See result. Chha: [facility] Transcribe Date/Time: Oct 31 2023 4:14P Dictated by : SHEA WORTHY MD This examination was interpreted and the report reviewed and electronically signed by: SHEA WORTHY MD on Oct 31 2023 4:15PM EST [id number] N Normal [facility] ANES POSTPROC EVALon 024 ANES POSTPROC EVAL HNO ID: [id number] Author: JEREMIE JOAQUIN MD Service: ? Author Type: Anesthesiologist Type: Anesthesia Postprocedure Evaluation Filed: 10/30/2023 11:55 Note Text: POST ANESTHESIA EVALUATION NOTE : 1990 Procedure Summary Date: 10/30/23 Room / Location: [place] [address] [facility] Anesthesia Start: 731 Anesthesia [...] October 30, 2023 TIME: 11:46 AM CSN: [id number] Normal [facility] ANES PRE-OPon 10-30-2023 ANES PRE-OP HNO ID: [id number] Author: JEREMIE JOAQUIN MD Service: ? Author Type: Anesthesiologist Type: Anesthesia Preprocedure Evaluation Filed: 10/30/2023 08:16 Note Text: ANESTHESIOLOGY DAY OF SURGERY NOTE : 1990 Procedure Information Date/Time: 10/30/23 0730 Procedure: DORSAL SLIT FORESKIN EXCEPT (Penis) Location: [place] [address] [facility] Surgeons: Rafael Giraldo MD [...] mL MUCOUS MEMBRANE ONCE - phenol 1 Jachin (CHLORASEPTIC) 1 Jachin MUCOUS MEMBRANE (TOPICAL MOUTH AND THROAT) q [...] INTRAVENOUS DAILY (6 AM) - phenol 1 Jachin (CHLORASEPTIC) 1 Jachin MUCOUS MEMBRANE (TOPICAL MOUTH AND THROAT) q [...] MORNING F (more content not included)... Normal [facility] Basic metabolic 2000 panelon 10-30-2023 Anion gap [Moles/Vol] 12 mmol/L Normal 9-18 [facility] Comment on above: Order Comment: Speci men Type: BLOOD SPECIMEN [facility] Address: [address] [place] [address] Performed By: #### 2 4321-2, , 2776-08 #### [facility] CLIA [id number] [address] [place] [address] [place] Calcium [Mass/Vol] 7.4 mg/dL Low 8.5-10.2 [facility] Comment on above: Order Comment: Speci men Type: BLOOD SPECIMEN [facility] Address: [address] [place] [address] Performed By: #### 2 4321-2, , 2776-08 #### [facility] CLIA [id number] [address] [place] [address] [place] Chloride [Moles/Vol] 113 mmol/L High 97-105 [facility] Comment on above: Order Comment: Speci men Type: BLOOD SPECIMEN [facility] Address: [address] [place] [address] Performed By: #### 2 4321-2, , 2776-08 #### [facility] CLIA [id number] [address] [place] [address] [place] CO2 [Moles/Vol] 24 mmol/L Normal 22-30 [facility] Comment on above: Order Comment: Speci men Type: BLOOD SPECIMEN [facility] Address: [address] [place] [address] Performed By: #### 2 4321-2, , 2776-08 #### [facility] CLIA [id number] [address] [place] [address] [place] Creatinine [Mass/Vol] 0.69 mg/dL Low 0.73-1.22 [facility] Comment on above: Order Comment: Speci men Type: BLOOD SPECIMEN [facility] Address: [address] [place] [address] Performed By: #### 2 4321-2, , 2776-08 #### [facility] CLIA [id number] [address] [place] [address] [place] Creatinine and Glomerular filtration rate.predicted panel (S/P/Bld) 127 mL/min/1.73m??? Normal >=60 [facility] Comment on above: Order Comment: Speci men Type: BLOOD SPECIMEN [facility] Address: [address] [place] [address] Result Comment: Lor mated Glomerular Filtration Rate [...] actual GFR. Performed By: #### 2 4321-2, 80239-42776-08 #### [facility] CLIA [id number] [address] [place] [address] [place] Glucose [Mass/Vol] 98 mg/dL Normal 74-99 [facility] Comment on above: Order Comment: Sana zuñiga Type: BLOOD SPECIMEN [facility] Address: [address] [place] [address] Result Comment: The [place] Diabetes Association (ADA) provides guidance for cutoff [...] Standards of Medical Care in Diabetes 2016, [place] Diabetes Association. Diabetes Care. 2016.39(Suppl 1). Performed By: #### 2 4321-2, , 2776-08 #### [facility] CLIA [id number] [address] [place] [address] [place] Potassium [Moles/Vol] 3.6 mmol/L Low 3.7-5.1 [facility] Comment on above: Order Comment: Sana zuñiga Type: BLOOD SPECIMEN [facility] Address: [address] [place] [address] Performed By: #### 2 4321-2, , 2776-08 #### [facility] CLIA [id number] [address] [place] [address] [place] Sodium [Moles/Vol] 149 mmol/L High 136-144 [facility] Comment on above: Order Comment: Sana zuñiga Type: BLOOD SPECIMEN [facility] Address: [address] [place] [address] Performed By: #### 2 4321-2, 23940-5, 2777- #### [facility] CLIA [id number] [address] [place] [address] [place] Urea nitrogen [Mass/Vol] 9 mg/dL Normal 9-24 [facility] Comment on above: Order Comment: Speci men Type: BLOOD SPECIMEN [facility] Address: [address] [place] [address] Performed By: #### 2 4321-2, 83403-1, 277- #### [facility] CLIA [id number] [address] [place] [address] [place] CBC W Auto Differential pane l (Bld)on 10-30-2023 Basophils (Bld) [#/Vol] 0.03 10*3/uL Normal <0.11 [facility] Comment on above: Order Comment: Speci men Type: BLOOD SPECIMEN [facility] Address: [address] [place] [address] Performed By: #### 5 7021-8 #### [facility] CLIA [id number] [address] [place] [address] [place] Basophils/100 WBC (Bld) 0.3 % Normal [facility] Comment on above: Order Comment: Speci men Type: BLOOD SPECIMEN [facility] Address: [address] [place] [address] Performed By: #### 5 7021-8 #### [facility] CLIA [id number] [address] [place] [address] [place] Differential cell count method Nom (Bld) Auto Normal [facility] Comment on above: Order Comment: Speci men Type: BLOOD SPECIMEN [facility] Address: [address] [place] [address] Performed By: #### 5 7021-8 #### [facility] CLIA [id number] [address] [place], [place] [address] [place] Eosinophils (Bld) [#/Vol] 0.07 10*3/uL Normal <0.46 [facility] Comment on above: Order Comment: Speci men Type: BLOOD SPECIMEN [facility] Address: [address] [place] [address] Performed By: #### 5 7021-8 #### [facility] CLIA [id number] [address] [place] [address] [place] Eosinophils/100 WBC (Bld) 0.6 % Normal [facility] Comment on above: Order Comment: Speci men Type: BLOOD SPECIMEN [facility] Address: [address] [place] [address] Performed By: #### 5 7021-8 #### [facility] CLIA [id number] [address] [place] [address] [place] Erythrocyte distribution width (RBC) [Ratio] 14.5 % Normal 11.5-15.0 [facility] Comment on above: Order Comment: Speci men Type: BLOOD SPECIMEN [facility] Address: [address] [place] [address] Performed By: #### 5 7021-8 #### [facility] CLIA [id number] [address] [place] [address] [place] Hematocrit (Bld) [Volume fraction] 31.1 % Low 39.0-51.0 [facility] Comment on above: Order Comment: Speci men Type: BLOOD SPECIMEN Order[facility] Address: [address] [place] [address] Performed By: #### 5 7021-8 #### [facility] CLIA [id number] [address] [place] [address] [place] Hemoglobin (Bld) [Mass/Vol] 9.8 g/dL Low 13.0-17.0 [facility] Comment on above: Order Comment: Speci men Type: BLOOD SPECIMEN [facility] Address: [address] [place] [address] Performed By: #### 5 7021-8 #### [facility] CLIA [id number] [address] [place] [address] [place] Immature granulocytes (Bld) [#/Vol] 0.06 10*3/uL Normal <0.10 [facility] Comment on above: Order Comment: Speci men Type: BLOOD SPECIMEN [facility] Address: [address] [place] [address] Performed By: #### 5 7021-8 #### [facility] CLIA [id number] [address] [place] [address] [place] Immature granulocytes/100 WBC (Bld) 0.5 % Normal [facility] Comment on above: Order Comment: Speci men Type: BLOOD SPECIMEN [facility] Address: [address] [place] [address] Performed By: #### 5 7021-8 #### [facility] CLIA [id number] [address] [place] [address] [place] Lymphocytes (Bld) [#/Vol] 1.41 10*3/uL Normal 1.00-4.00 [facility] Comment on above: Order Comment: Speci men Type: BLOOD SPECIMEN [facility] Address: [address] [place] [address] Performed By: #### 5 7021-8 #### [facility] CLIA [id number] [address] [place] [address] [place] Lymphocytes/100 WBC (Bld) 12.0 % Normal [facility] Comment on above: Order Comment: Speci men Type: BLOOD SPECIMEN [facility] Address: [address] [place] [address] Performed By: #### 5 7021-8 #### [facility] CLIA [id number] [address] [place] [address] [place] MCH (RBC) [Entitic mass] 26.6 pg Normal 26.0-34.0 [facility] Comment on above: Order Comment: Speci men Type: BLOOD SPECIMEN [facility] Address: [address] [place] [address] Performed By: #### 5 7021-8 #### [facility] CLIA [id number] [address] [place] [address] [place] MCHC (RBC) [Mass/Vol] 31.5 g/dL Normal 30.5-36.0 [facility] Comment on above: Order Comment: Speci men Type: BLOOD SPECIMEN [facility] Address: [address] [place] [address] Performed By: #### 5 7021-8 #### [facility] CLIA [id number] [address] [place] [address] [place] MCV (RBC) [Entitic vol] 84.5 fL Normal 80.0-100.0 [facility] Comment on above: Order Comment: Speci men Type: BLOOD SPECIMEN [facility] Address: [address] [place] [address] Performed By: #### 5 7021-8 #### [facility] CLIA [id number] [address] [place] [address] [place] Monocytes (Bld) [#/Vol] 1.18 10*3/uL High <0.87 [facility] Comment on above: Order Comment: Speci men Type: BLOOD SPECIMEN [facility] Address: [address] [place] [address] Performed By: #### 5 7021-8 #### [facility] CLIA [id number] [address] [place] [address] [place] Monocytes/100 WBC (Bld) 10.1 % Normal [facility] Comment on above: Order Comment: Speci men Type: BLOOD SPECIMEN [facility] Address: [address] [place] [address] Performed By: #### 5 7021-8 #### [facility] CLIA [id number] [address] [place] [address] [place] Neutrophils (Bld) [#/Vol] 8.98 10*3/uL High 1.45-7.50 [facility] Comment on above: Order Comment: Speci men Type: BLOOD SPECIMEN [facility] Address: [address] [place] [address] Performed By: #### 5 7021-8 #### [facility] CLIA [id number] [address] [place] [address] [place] Neutrophils/100 WBC (Bld) 76.5 % Normal [facility] Comment on above: Order Comment: Speci men Type: BLOOD SPECIMEN [facility] Address: [address] [place] [address] Performed By: #### 5 7021-8 #### [facility] CLIA [id number] [address] [place] [address] [place] Nucleated RBC (Bld) [#/Vol] 10*3/uL Normal <0.01 [facility] Comment on above: Order Comment: Speci men Type: BLOOD SPECIMEN [facility] Address: [address] [place] [address] Performed By: #### 5 7021-8 #### [facility] CLIA [id number] [address] [place] [address] [place] Nucleated RBC/100 WBC (Bld) [Ratio] 0.0 /100 WBC Normal [facility] Comment on above: Order Comment: Speci men Type: BLOOD SPECIMEN [facility] Address: [address] [place] [address] Performed By: #### 5 7021-8 #### [facility] CLIA [id number] [address] [place] [address] [place] Platelet mean volume (Bld) [Entitic vol] 9.7 fL Normal 9.0-12.7 [facility] Comment on above: Order Comment: Speci men Type: BLOOD SPECIMEN [facility] Address: [address] [place] [address] Performed By: #### 5 7021-8 #### [facility] CLIA [id number] [address] [place] [address] [place] Platelets (Bld) [#/Vol] 138 10*3/uL Low 150-400 [facility] Comment on above: Order Comment: Speci men Type: BLOOD SPECIMEN [facility] Address: [address] [place] [address] Performed By: #### 5 7021-8 #### [facility] CLIA [id number] [address] [place] [address] [place] RBC (Bld) [#/Vol] 3.68 10*6/uL Low 4.20-6.00 [facility] Comment on above: Order Comment: Speci men Type: BLOOD SPECIMEN [facility] Address: [address] [place] [address] Performed By: #### 5 7021-8 #### [facility] CLIA [id number] [address] [place] [address] [place] WBC (Bld) [#/Vol] 11.73 10*3/uL High 3.70-11.00 [facility] Comment on above: Order Comment: Speci men Type: BLOOD SPECIMEN [facility] Address: [address] [place] [address] Performed By: #### 5 7021-8 #### [facility] CLIA [id number] [address] [place] [address] [place] CONSULTon 10-30-2023 CONSULT HNO ID: [id number] Author: RAFAEL GIRALDO MD Service: Urology Author [...] the meatal orifice was visualized, an 8 Swedish Haskins catheter was sterilely placed. 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 [facility] was [...] CONGESTIONDisp: Rfl: guanFACINE (INTUNIV ER) 4 mg Ib15Ojpp 4 mg by mouth onc (more content not included)... Normal [facility] Magnesium SerPl-mCncon 10-29 Magnesium [Mass/Vol] 2.0 mg/dL Normal 1.7-2.3 [facility] Comment on above: Order Comment: Speci men Type: BLOOD SPECIMENOrdering Facility: [facility] Address: [address] [place] [address] Performed By: #### 2 4321-2, 86943-5, 2777-1 ####[facility] LABCLIA [id number] [place] [address] [place] NURSING PROGon 10-30-2023 NURSING PROG HNO ID: [id number] Author: SHAHRIAR FARFAN RN Service: Nursing Author Type: Registered Nurse Type: Nursing Progress Note Filed: 10/30/2023 09:52 Note Text: Pt awake, opens eyes spontaneously, MEDINA to command, generalized weakness. Nonverbal at baseline. VSS. Appears comfortable, no grimacing, resting Normal [facility] NURSING PROG HNO ID: [id number] Author: SHAHRIAR FARFAN RN Service: Nursing Author [...] effective in protecting the patient's safety: Alarms, Boiler Installer/Sitter, Bed in Low/Locked Position Next, a comprehensive assessment was performed and warranted placing the patient in Soft Bilateral Wrists, the least restrictive restraint needed to protect the patient's safety. Ongoing safety assessments and evaluation for earliest removal of restraints will be performed. DATE: October 30, 2023 TIME: 9:48 AM Shahriar Farfan RN Normal [facility] NURSING PROG HNO ID: [id number] Author: LEONARD FRANCIS JR, RN Service: Nursing Author Type: Registered Nurse Type: Nursing Progress Note Filed: 10/30/2023 01:11 Note Text: 2200 PM: PT does not have have a haskins catheter post op. Per report, prior to OR PT was admitted from OSH with a pediatric haskins in place due to difficulties with normal catheter. [id number] Gen surg notified. PT is clean and [...] Gen surg at bedside Leonard PINEDA. Normal [facility] OPERATIVE NOon 10-30-2023 OPERATIVE NO HNO ID: [id number] Author: HERMAN JOHNSON MD Service: Urology Author Type: Resident Type: Operative Report Filed: 10/30/2023 09:08 Note Text: Attestation signed by Oscar Ruiz MD at 10/30/2023 9:20 AM Attestation The primary proceduralist, Wale Thomas, performed the entire procedure with the assistance of Dr. Johnson. I agree with the documentation above. [facility] UROLOGY OPERATIVE REPORT Patient Name: Johnny Devine Patient Log ID: [id number] Surgery Date: 10/30/2023 Incision/Procedure Start Time: 8:03 AM Incision Close/Procedure End Time: 8:17 AM Surgeon(s) and Glass Selector(s): Surgeon(s) and Role: * Oscar Ruiz MD [...] 4-0 Monocryl. Hemostasis was excellent. A 10-Fr Hasknis was placed without difficulty. A penile block [...] I agree with the documentation above. Normal [facility] Phosphate SerPl-mCncon 10-29 Phosphate [Mass/Vol] 2.2 mg/dL Low 2.7-4.8 [facility] Comment on above: Order Comment: Speci men Type: BLOOD SPECIMENOrdering Facility: [facility] Address: [address] [place] [address] Performed By: #### 2 4321-2, 79157-2, 2777-1 ####[facility] LABCLIA [id number] [address] [address] [place] XR ABDOMEN 1V [...] likely an ileus. Sigmoid distention appears improved Chha: PSCB Transcribe Date/Time: Oct 30 2023 7:41A Dictated by : RYAN MORRIS MD This examination was interpreted and the report reviewed and electronically signed by: RYAN MORRIS MD on Oct 30 2023 7:43AM EST [id number] Normal [facility] ANES POSTPROC EVALon 024 ANES POSTPROC EVAL HNO ID: [id number] Author: DORIE TENA DO Service: ? Author Type: Anesthesiologist Type: Anesthesia Postprocedure Evaluation Filed: 10/29/2023 14:37 Note Text: POST ANESTHESIA EVALUATION NOTE : 1990 Procedure Summary Date: 10/29/23 Room / Location: [address] [facility] Anesthesia Start: 0948 Anesthesia [...] October 29, 2023 TIME: 2:34 PM CSN: [id number] Normal [facility] ANES PRE-OPon 10-29-2023 ANES PRE-OP HNO ID: [id number] Author: KENZIE MORE APRN.SENIOR EXECUTIVE ASSISTANT Service: ? Author Type: Nurse Editor Managing Director Type: Anesthesia Preprocedure Evaluation Filed: 10/29/2023 09:58 Note Text: ANESTHESIOLOGY DAY OF SURGERY NOTE : 1990 Procedure Information Anesthesia Start Date/Time: 10/29/23947 Procedure: EXPLORATORY LAPAROTOMY (Abdomen) Location: [facility]IN [facility] [place] Surgeons: Samuel Robin MD There is no [...] HR - [Held on Transfer] phenol 1 Jachin (CHLORASEPTIC) 1 Jachin MUCOUS MEMBRANE (TOPICAL MOUTH AND THROAT) q [...] - Sennosid (more content not included)... Normal [facility] BRIEF OP NOTon 10-29-2023 BRIEF OP NOT HNO ID: [id number] Author: PA ALICEA MD Service: General Surgery Author Type: Resident Type: Brief Op Note Filed: 10/29/2023 11:47 Note Text: DDSI BRIEF OP NOTE LOG ID: [id number] SURGERY/PROCEDURE DATE: 10/29/2023 INCISION/PROCEDURE START TIME: 10:25 AM INCISION CLOSE/PROCEDURE END TIME: 11:40 AM SURGEON(S)/PROCEDURAL IST(S) AND POWDER PRESS OPERATOR(S): Surgeon(s) and Role: * Samuel Robin [...] 29, 2023 TIME: 11:45 AM PAGER/CONTACT #: [facility] BRIEF OP NOT HNO ID: [id number] Author: DANTE CHERRY MD Service: General Surgery Author Type: Resident Type: Brief Op Note Filed: 10/29/2023 11:44 Note Text: BRIEF OPERATIVE / PROCEDURE NOTE LOG ID: [id number] SURGERY/PROCEDURE DATE: 10/29/2023 INCISION/PROCEDURE START TIME: 10:25 AM INCISION CLOSE/PROCEDURE END TIME: 11:40 AM SURGEON(S)/PROCEDURAL IST(S) AND POWDER PRESS OPERATOR(S): Surgeon(s) and Role: * Samuel Robin [...] October 29, 2023 TIME: 11:36 AM Normal [facility] BRIEF OP NOT HNO ID: [id number] Author: PA ALICEA MD Service: General Surgery Author Type: Resident Type: Brief Op Note Filed: 10/29/2023 08:42 Note Text: Created in Error Normal [facility] Basic metabolic 2000 panelon 10-29-2023 Anion gap [Moles/Vol] 11 mmol/L Normal 9-18 [facility] Comment on above: Order Comment: Speci men Type: BLOOD SPECIMEN [facility] Address: [address] [place] [address] Performed By: #### 2 777-1, , #### [facility] CLIA [id number] [address] [place] [address] [place] Calcium [Mass/Vol] 7.4 mg/dL Low 8.5-10.2 [facility] Comment on above: Order Comment: Speci men Type: BLOOD SPECIMEN [facility] Address: [address] [place] [address] Performed By: #### 2 777-1, , #### [facility] CLIA [id number] [address] [place] [address] [place] Chloride [Moles/Vol] 112 mmol/L High 97-105 [facility] Comment on above: Order Comment: Speci men Type: BLOOD SPECIMEN [facility] Address: [address] [place] [address] Performed By: #### 2 777-1, 90125-6, #### [facility] CLIA [id number] [address] [place] [address] [place] CO2 [Moles/Vol] 21 mmol/L Low 22-30 [facility] Comment on above: Order Comment: Speci men Type: BLOOD SPECIMEN [facility] Address: [address] [place] [address] Performed By: #### 2 777-1, 64603-6, #### [facility] CLIA [id number] [address] [place] [address] [place] Creatinine [Mass/Vol] 0.69 mg/dL Low 0.73-1.22 [facility] Comment on above: Order Comment: Speci men Type: BLOOD SPECIMEN [facility] Address: [address] [place] [address] Performed By: #### 2 777-1, 22244-3, #### [facility] CLIA [id number] [address] [place] [address] [place] Creatinine and Glomerular filtration rate.predicted panel (S/P/Bld) 127 mL/min/1.73m??? Normal >=60 [facility] Comment on above: Order Comment: Speci men Type: BLOOD SPECIMEN [facility] Address: [address] [place] [address] Result Comment: Lor mated Glomerular Filtration Rate [...] actual GFR. Performed By: #### 2 777-1, 23800-8, #### [facility] CLIA [id number] [address] [place] [address] [place] Glucose [Mass/Vol] 115 mg/dL High 74-99 [facility] Comment on above: Order Comment: Speci men Type: BLOOD SPECIMEN [facility] Address: [address] [place] [address] Result Comment: The [place] Diabetes Association (ADA) provides guidance for cutoff [...] Standards of Medical Care in Diabetes 2016, [place] Diabetes Association. Diabetes Care. 2016.39(Suppl 1). Performed By: #### 2 777-1, 80686-6, #### [facility] CLIA [id number] [address] [place] [address] [place] Potassium [Moles/Vol] 3.8 mmol/L Normal 3.7-5.1 [facility] Comment on above: Order Comment: Speci men Type: BLOOD SPECIMEN [facility] Address: [address] [place] [address] Performed By: #### 2 777-1, 30557-9, #### [facility] CLIA [id number] [address] [place] [address] [place] Sodium [Moles/Vol] 144 mmol/L Normal 136-144 [facility] Comment on above: Order Comment: Speci men Type: BLOOD SPECIMEN [facility] Address: [address] [place] [address] Performed By: #### 2 777-1, 63371-1, 91533-8 #### [facility] CLIA [id number] [address] [place] [address] [place] Urea nitrogen [Mass/Vol] 13 mg/dL Normal 9-24 [facility] Comment on above: Order Comment: Speci men Type: BLOOD SPECIMEN [facility] Address: [address] [place] [address] Performed By: #### 2 777-1, 75612-0, #### [facility] CLIA [id number] [address] [place] [address] [place] CBC W Auto Differential pane l (Bld)on 10-29-2023 Basophils (Bld) [#/Vol] 10*3/uL Normal <0.11 [facility] Comment on above: Order Comment: Speci men Type: BLOOD SPECIMEN [facility] Address: [address] [place] [address] Performed By: #### 5 7021-8 #### [facility] CLIA [id number] [address] [place] [address] [place] Basophils/100 WBC (Bld) 0.1 % Normal [facility] Comment on above: Order Comment: Speci men Type: BLOOD SPECIMEN [facility] Address: [address] [place] [address] Performed By: #### 5 7021-8 #### [facility] CLIA [id number] [address] [place] [address] [place] Differential cell count method Nom (Bld) Auto Normal [facility] Comment on above: Order Comment: Speci men Type: BLOOD SPECIMEN [facility] Address: [address] [place] [address] Performed By: #### 5 7021-8 #### [facility] CLIA [id number] [address] [place] [address] [place] Eosinophils (Bld) [#/Vol] 10*3/uL Normal <0.46 [facility] Comment on above: Order Comment: Speci men Type: BLOOD SPECIMEN [facility] Address: [address] [place] [address] Performed By: #### 5 7021-8 #### [facility] CLIA [id number] [address] [place] [address] [place] Eosinophils/100 WBC (Bld) 0.1 % Normal [facility] Comment on above: Order Comment: Speci men Type: BLOOD SPECIMEN [facility] Address: [address] [place] [address] Performed By: #### 5 7021-8 #### [facility] CLIA [id number] [address] [place] [address] [place] Erythrocyte distribution width (RBC) [Ratio] 14.6 % Normal 11.5-15.0 [facility] Comment on above: Order Comment: Speci men Type: BLOOD SPECIMEN [facility] Address: [address] [place] [address] Performed By: #### 5 7021-8 #### [facility] CLIA [id number] [address] [place] [address] [place] Hematocrit (Bld) [Volume fraction] 33.0 % Low 39.0-51.0 [facility] Comment on above: Order Comment: Speci men Type: BLOOD SPECIMEN [facility] Address: [address] [place] [address] Performed By: #### 5 7021-8 #### [facility] CLIA [id number] [address] [place] [address] [place] Hemoglobin (Bld) [Mass/Vol] 10.5 g/dL Low 13.0-17.0 [facility] Comment on above: Order Comment: Speci men Type: BLOOD SPECIMEN [facility] Address: [address] [place] [address] Performed By: #### 5 7021-8 #### [facility] CLIA [id number] [address] [place] [address] [place] Immature granulocytes (Bld) [#/Vol] 0.05 10*3/uL Normal <0.10 [facility] Comment on above: Order Comment: Speci men Type: BLOOD SPECIMEN [facility] Address: [address] [place] [address] Performed By: #### 5 7021-8 #### [facility] CLIA [id number] [address] [place] [address] [place] Immature granulocytes/100 WBC (Bld) 0.4 % Normal [facility] Comment on above: Order Comment: Speci men Type: BLOOD SPECIMEN [facility] Address: [address] [place] [address] Performed By: #### 5 7021-8 #### [facility] CLIA [id number] [address] [place] [address] [place] Lymphocytes (Bld) [#/Vol] 1.25 10*3/uL Normal 1.00-4.00 [facility] Comment on above: Order Comment: Speci men Type: BLOOD SPECIMEN [facility] Address: [address] [place] [address] Performed By: #### 5 7021-8 #### [facility] CLIA [id number] [address] [place] [address] [place] Lymphocytes/100 WBC (Bld) 8.9 % Normal [facility] Comment on above: Order Comment: Speci men Type: BLOOD SPECIMEN [facility] Address: [address] [place] [address] Performed By: #### 5 7021-8 #### [facility] CLIA [id number] [address] [place] [address] [place] MCH (RBC) [Entitic mass] 26.9 pg Normal 26.0-34.0 [facility] Comment on above: Order Comment: Speci men Type: BLOOD SPECIMEN [facility] Address: [address] [place] [address] Performed By: #### 5 7021-8 #### [facility] CLIA [id number] [address] [place] [address] [place] MCHC (RBC) [Mass/Vol] 31.8 g/dL Normal 30.5-36.0 [facility] Comment on above: Order Comment: Speci men Type: BLOOD SPECIMEN [facility] Address: [address] [place] [address] Performed By: #### 5 7021-8 #### [facility] CLIA [id number] [address] [place] [address] [place] MCV (RBC) [Entitic vol] 84.6 fL Normal 80.0-100.0 [facility] Comment on above: Order Comment: Speci men Type: BLOOD SPECIMEN [facility] Address: [address] [place] [address] Performed By: #### 5 7021-8 #### [facility] CLIA [id number] [address] [place] [address] [place] Monocytes (Bld) [#/Vol] 1.50 10*3/uL High <0.87 [facility] Comment on above: Order Comment: Speci men Type: BLOOD SPECIMEN [facility] Address: [address] [place] [address] Performed By: #### 5 7021-8 #### [facility] CLIA [id number] [address] [place] [address] [place] Monocytes/100 WBC (Bld) 10.6 % Normal [facility] Comment on above: Order Comment: Speci men Type: BLOOD SPECIMEN [facility] Address: [address] [place] [address] Performed By: #### 5 7021-8 #### [facility] CLIA [id number] [address] [place] [address] [place] Neutrophils (Bld) [#/Vol] 11.26 10*3/uL High 1.45-7.50 [facility] Comment on above: Order Comment: Speci men Type: BLOOD SPECIMEN [facility] Address: [address] [place] [address] Performed By: #### 5 7021-8 #### [facility] CLIA [id number] [address] [place] [address] [place] Neutrophils/100 WBC (Bld) 79.9 % Normal [facility] Comment on above: Order Comment: Speci men Type: BLOOD SPECIMEN [facility] Address: [address] [place] [address] Performed By: #### 5 7021-8 #### [facility] CLIA [id number] [address] [place] [address] [place] Nucleated RBC (Bld) [#/Vol] 10*3/uL Normal <0.01 [facility] Comment on above: Order Comment: Speci men Type: BLOOD SPECIMEN [facility] Address: [address] [place] [address] Performed By: #### 5 7021-8 #### [facility] CLIA [id number] [address] [place] [address] [place] Nucleated RBC/100 WBC (Bld) [Ratio] 0.0 /100 WBC Normal [facility] Comment on above: Order Comment: Speci men Type: BLOOD SPECIMEN [facility] Address: [address] [place] [address] Performed By: #### 5 7021-8 #### [facility] CLIA [id number] [address] [place] [address] [place] Platelet mean volume (Bld) [Entitic vol] 9.4 fL Normal 9.0-12.7 [facility] Comment on above: Order Comment: Speci men Type: BLOOD SPECIMEN [facility] Address: [address] [place] [address] Performed By: #### 5 7021-8 #### [facility] CLIA [id number] [address] [place] [address] [place] Platelets (Bld) [#/Vol] 151 10*3/uL Normal 150-400 [facility] Comment on above: Order Comment: Speci men Type: BLOOD SPECIMEN [facility] Address: [address] [place] [address] Performed By: #### 5 7021-8 #### [facility] CLIA [id number] [address] [place] [address] [place] RBC (Bld) [#/Vol] 3.90 10*6/uL Low 4.20-6.00 [facility] Comment on above: Order Comment: Speci men Type: BLOOD SPECIMEN [facility] Address: [address] [place] [address] Performed By: #### 5 7021-8 #### [facility] CLIA [id number] [address] [place] [address] [place] WBC (Bld) [#/Vol] 14.09 10*3/uL High 3.70-11.00 [facility] Comment on above: Order Comment: Speci men Type: BLOOD SPECIMEN [facility] Address: [address] [place] [address] Performed By: #### 5 7021-8 #### [facility] CLIA [id number] [address] [place] [address] [place] CONFIRM BLOOD TYPEon 024 ABO A Normal [facility] Comment on above: Order Comment: Speci men Type: BLOOD SPECIMENOrdering Facility: [facility] Address: [address] [place] [address] Performed By: #### C ONABO ####[facility] BANKCLIA [id number] [place] [address] [place] Rh Nom (Bld) Positive Normal [facility] Comment on above: Order Comment: Speci men Type: BLOOD SPECIMENOrdering Facility: [facility] Address: [address] [place] [address] Performed By: #### C ONABO ####[facility] BANKCLIA [id number] [place] [address] [place] Magnesium SerPl-mCncon 10-28 Magnesium [Mass/Vol] 1.8 mg/dL Normal 1.7-2.3 [facility] Comment on above: Order Comment: Speci men Type: BLOOD SPECIMEN [facility] Address: [address] [place] [address] Performed By: #### 2 777-1, 97783-8, 02345-2 #### [facility] CLIA [id number] [address] [place] [address] [place] NURSING PROGon 10-29-2023 NURSING PROG HNO ID: [id number] Author: BAILEY HUTSON RN Service: Nursing Author Type: Registered Nurse Type: Nursing Progress Note Filed: 10/29/2023 18:29 Note Text: [id number] [place] [phone] to notify of patient's current temp of 100.2 F. Will continue to monitor. Normal [facility] NURSING PROG HNO ID: [id number] Author: BAILEY HUTSON RN Service: Nursing Author Type: Registered Nurse Type: Nursing Progress Note Filed: 10/29/2023 17:35 Note Text: Nursing Progress: Topic: RESTRAINT NON-VIOLENT PATIENT NAME: Johnny Devine Patient Location: [place] [address] Room: [place] [address] The patient demonstrates Attempting to Remove Medical [...] the patient's safety: Bed in Low/Locked Position, Boiler Installer/Sitter, Diversion Activities, IV/Feeding Bag/Pump Out of Vision, [...] 2023 TIME: 5:07 PM Bailey Hutson RN [facility] NURSING PROG HNO ID: [id number] Author: BAILEY HUTSON RN Service: Nursing Author Type: Registered Nurse Type: Nursing Progress Note Filed: 10/29/2023 15:25 Note Text: 1518 [place] [phone] to request indwelling Haskins for incontinence and skin breakdown management. Will continue to monitor. 1523 Patient repeatedly attempt to remove NG tube despite the sitter at the bedside. Primary team notified with request for order for bilateral soft wrist restraint. Will continue to monitor. [facility] NURSING PROG HNO ID: [id number] Author: OLIMPIA MAGALLON RN Service: Nursing Author Type: Registered Nurse Type: Nursing Progress Note Filed: 10/29/2023 13:37 Note Text: Pt resting quietly with patient drafter electrical at bedside. Several attempts to reach for NG tube, patient relaxes and moves hand away from from drain if you say hand down Per brother Johnnieion. This has been effective. Pt resting quietly, no facial grimacing, posturing, or guarding. Vss, resp rate even and non labored. Pt has returned to presurgical baseline and is being transferred back to [facility] in stable condition. Opening eyes when name is called. Brothcyrus Mandujano (guardian) updated prior to patient transfer. Normal [facility] OPERATIVE NOon 10-29-2023 OPERATIVE NO HNO ID: [id number] Author: SAMUEL ROBIN MD Service: General Surgery Author Type: Physician Type: Operative Report Filed: 10/29/2023 13:52 Note Text: OPERATIVE/PROCEDURE REPORT LOG ID: [id number] SURGERY/PROCEDURE DATE: 10/29/2023 INCISION/PROCEDURE START TIME: 10:25 AM INCISION CLOSE/PROCEDURE END TIME: 11:40 AM SURGEON(S)/PROCEDURAL IST(S) AND POWDER PRESS OPERATOR(S): Surgeon(s) and Role: * Samuel Robin [...] for the entirety of the case. Normal [facility] Phosphate SerPl-mCncon 10-28 Phosphate [Mass/Vol] 2.3 mg/dL Low 2.7-4.8 [facility] Comment on above: Order Comment: Speci men Type: BLOOD SPECIMEN [facility] Address: [address] [place] [address] Performed By: #### 2 777-1, 52271-6, 76657-5 #### [facility] CLIA [id number] [address] [place] [address] [place] SEPSIS LACTATEon 10-29-2023 Lactate [Moles/Vol] 1.2 mmol/L Normal <=2.0 [facility] Comment on above: Order Comment: Speci men Type: BLOOD SPECIMENOrdering Facility: [facility] Address: [address] [place] [address] Performed By: #### S LACT ####[facility] LAB[facility] [id number] [place] [address] [place] Order Comment: Speci men Type: BLOOD SPECIMEN [facility] Address: [address] [place] [address] Performed By: #### 2 777-1, 49501-2, #### [facility] CLIA [id number] [address] [place] [address] [place] Urinalysis complete panel (U )on 10-29-2023 Bacteria LM.HPF (Urine sed) [#/Area] Negative Normal Negative [facility] [facility] Comment on above: Order Comment: Speci men Type: BLOOD SPECIMEN [facility] Facility[facility] Address: [address] [place] [address] Performed By: #### 2 777-1, 81966-0, #### [facility] CLIA [id number] [address] [place] [address] [place] Bilirubin Ql (U) Negative Normal Negative [facility] Comment on above: Order Comment: Speci men Type: BLOOD SPECIMEN [facility]ing Facility[facility] Address: [address] [place] [address] Performed By: #### 2 777-1, 00444-6, #### [facility] CLIA [id number] [address] [place] [address] [place] Clarity (Unsp spec) Clear Normal Clear [facility] Comment on above: Order Comment: Speci men Type: BLOOD SPECIMEN [facility] Address: [address] [place] [address] Performed By: #### 2 777-1, 51304-8, #### [facility] CLIA [id number] [address] [place] [address] [place] Color (U) Yellow Normal Yellow [facility] Comment on above: Order Comment: Speci men Type: BLOOD SPECIMEN [facility] Address: [address] [place] [address] Performed By: #### 2 777-1, 58018-8, #### [facility] CLIA [id number] [address] [place] [address] [place] Epithelial cells LM.HPF (Urine sed) [#/Area] None Seen Normal [facility] Comment on above: Order Comment: Speci men Type: BLOOD SPECIMEN [facility] Address: [address] [place] [address] Performed By: #### 2 777-1, , #### [facility] CLIA [id number] [address] [place] [address] [place] Glucose Test strip (U) [Mass/Vol] Negative Normal Negative [facility] Comment on above: Order Comment: Speci men Type: BLOOD SPECIMEN [facility] Address: [address] [place] [address] Performed By: #### 2 777-1, 51676-4, #### [facility] CLIA [id number] [address] [place] [address] [place] Hemoglobin Ql (U) 2+ Abnormal Negative [facility] Comment on above: Order Comment: Speci men Type: BLOOD SPECIMEN [facility] Address: [address] [place] [address] Performed By: #### 2 777-1, 29711-9, #### [facility] CLIA [id number] [address] [place], [place] [address] [place] Hyaline casts (Urine sed) [#/Area] 0 /[LPF] Normal 0 /LPF [facility] Comment on above: Order Comment: Speci men Type: BLOOD SPECIMEN [facility] Address: [address] [place] [address] Performed By: #### 2 777-1, 74774-0, #### [facility] CLIA [id number] [address] [place] [address] [place] Ketones Ql (U) Negative Normal Negative [facility] Comment on above: Order Comment: Speci men Type: BLOOD SPECIMEN [facility] Address: [address] [place] [address] Performed By: #### 2 777-1, , #### [facility] CLIA [id number] [address] [place] [address] [place] Leukocyte esterase Test strip Ql (U) Negative Normal Negative [facility] Comment on above: Order Comment: Speci men Type: BLOOD SPECIMEN [facility] Address: [address] [place] [address] Performed By: #### 2 777-1, , #### [facility] CLIA [id number] [address] [place], [place] [address] [place] Nitrite Ql (U) Negative Normal Negative [facility] Comment on above: Order Comment: Speci men Type: BLOOD SPECIMEN [facility] Address: [address] [place] [address] Performed By: #### 2 777-1, , #### [facility] CLIA [id number] [address] [place] [address] [place] pH (U) 6.5 [pH] Normal <8.5 [facility] Comment on above: Order Comment: Speci men Type: BLOOD SPECIMEN [facility] Address: [address] [place] [address] Performed By: #### 2 777-1, 48435-1, #### [facility] CLIA [id number] [address] [place] [address] [place] Protein (U) [Mass/Vol] Trace Abnormal Negative [facility] Comment on above: Order Comment: Speci men Type: BLOOD SPECIMEN [facility] Address: [address] [place] [address] Performed By: #### 2 777-1, 15602-9, #### [facility] CLIA [id number] [address] [place] [address] [place] RBC LM.HPF (Urine sed) [#/Area] 6-10 /HPF Abnormal 0-2 /HPF [facility] Comment on above: Order Comment: Speci men Type: BLOOD SPECIMEN [facility] Address: [address] [place] [address] Performed By: #### 2 777-1, , #### [facility] CLIA [id number] [address] [place] [address] [place] Specific gravity (U) [Rel density] 1.021 Normal 1.005-1.030 [facility] Comment on above: Order Comment: Speci men Type: BLOOD SPECIMEN [facility] Address: [address] [place] [address] Performed By: #### 2 777-1, , #### [facility] CLIA [id number] [address] [place] [address] [place] Urobilinogen Ql (U) 0.2 EU/dL Normal 0.2-1.0 EU/dL [facility] Comment on above: Order Comment: Speci men Type: BLOOD SPECIMEN [facility] Address: [address] [place] [address] Performed By: #### 2 777-1, 58042-8, #### [facility] CLIA [id number] [address] [place] [address] [place] WBC LM.HPF (Urine sed) [#/Area] 0-5 /HPF Normal 0-5 /HPF [facility] Comment on above: Order Comment: Speci men Type: BLOOD SPECIMEN [facility] Address: [address] [place] [address] Performed By: #### 2 777-1, 08902-8, #### [facility] CLIA [id number] [address] [place] [address] [place] XR CHEST 1V [...] are unremarkable. Other: . IMPRESSION: See result. Chha: SUSI Transcribe Date/Time: Oct 29 2023 12:20A Dictated by : SHEA WORTHY MD This examination was interpreted and the report reviewed and electronically signed by: SHEA WORTHY MD on Oct 29 2023 12:22AM EST [id number] N Normal [facility] aPTT PPPon 10-29-2023 aPTT Coag (PPP) [Time] 26.3 s Normal 23.0-32.4 [facility] Comment on above: Order Comment: Speci men Type: BLOOD SPECIMEN [facility] Address: [address] [place] [address] Performed By: #### 2 777-1, 36581-0, #### [facility] CLIA [id number] [address] [place] [address] [place] Basic metabolic 2000 panelon 10-28-2023 Anion gap [Moles/Vol] 12 mmol/L Normal 9-18 [facility] Comment on above: Order Comment: Speci men Type: BLOOD SPECIMEN [facility] Address: [address] [place] [address] Performed By: #### 2 777-1, 21328-9, #### [facility] CLIA [id number] [address] [place] [address] [place] Calcium [Mass/Vol] 7.8 mg/dL Low 8.5-10.2 [facility] Comment on above: Order Comment: Speci men Type: BLOOD SPECIMEN Order[facility] Address: [address] [place] [address] Performed By: #### 2 777-1, 16762-4, #### [facility] CLIA [id number] [address] [place] [address] [place] Chloride [Moles/Vol] 110 mmol/L High 97-105 [facility] Comment on above: Order Comment: Speci men Type: BLOOD SPECIMEN [facility] Address: [address] [place] [address] Performed By: #### 2 777-1, 81612-0, #### [facility] CLIA [id number] [address] [place] [address] [place] CO2 [Moles/Vol] 15 mmol/L Low 22-30 [facility] Comment on above: Order Comment: Specdeshawn zuñiga Type: BLOOD SPECIMEN Order[facility] Address: [address] [place] [address] Performed By: #### 2 777-1, 69550-8, #### [facility] CLIA [id number] [address] [place] [address] [place] Creatinine [Mass/Vol] 0.72 mg/dL Low 0.73-1.22 [facility] Comment on above: Order Comment: Speci yogesh Type: BLOOD SPECIMEN Order[facility] Address: [address] [place] [address] Performed By: #### 2 777-1, 09125-4, #### [facility] CLIA [id number] [address] [place] [address] [place] Creatinine and Glomerular filtration rate.predicted panel (S/P/Bld) 125 mL/min/1.73m??? Normal >=60 [facility] Comment on above: Order Comment: Sana zuñiga Type: BLOOD SPECIMEN [facility] Address: [address] [place] [address] Result Comment: Lor mated Glomerular Filtration Rate [...] actual GFR. Performed By: #### 2 777-1, 39628-6, #### [facility] CLIA [id number] [address] [place] [address] [place] Glucose [Mass/Vol] 116 mg/dL High 74-99 [facility] Comment on above: Order Comment: Sana zuñiga Type: BLOOD SPECIMEN [facility] Address: [address] [place] [address] Result Comment: The [place] Diabetes Association (ADA) provides guidance for cutoff [...] Standards of Medical Care in Diabetes 2016, [place] Diabetes Association. Diabetes Care. 2016.39(Suppl 1). Performed By: #### 2 777-1, 37918-6, #### [facility] CLIA [id number] [address] [place] [address] [place] Potassium [Moles/Vol] 3.9 mmol/L Normal 3.7-5.1 [facility] Comment on above: Order Comment: Sana zuñiga Type: BLOOD SPECIMEN [facility] Address: [address] [place] [address] Performed By: #### 2 777-1, 15026-0, #### [facility] CLIA [id number] [address] [place] [address] [place] Sodium [Moles/Vol] 137 mmol/L Normal 136-144 [facility] Comment on above: Order Comment: Sana zuñiga Type: BLOOD SPECIMEN Order[facility] Address: [address] [place] [address] Performed By: #### 2 777-1, 51177-9, #### [facility] CLIA [id number] [address] [place] [address] [place] Urea nitrogen [Mass/Vol] 17 mg/dL Normal 9-24 [facility] Comment on above: Order Comment: Speci men Type: BLOOD SPECIMEN Order[facility] Address: [address] [place] [address] Performed By: #### 2 777-1, 90177-6, #### [facility] CLIA [id number] [address] [place] [address] [place] CBC W Auto Differential pane l (Bld)on 10-28-2023 Basophils (Bld) [#/Vol] 10*3/uL Normal <0.11 [facility] Comment on above: Order Comment: Speci men Type: BLOOD SPECIMEN [facility] Address: [address] [place] [address] Performed By: #### 2 777-1, 90554-6, #### [facility] CLIA [id number] [address] [place] [address] [place] Basophils/100 WBC (Bld) 0.1 % Normal [facility] Comment on above: Order Comment: Speci men Type: BLOOD SPECIMEN [facility] Address: [address] [place] [address] Performed By: #### 2 777-1, 60729-3, #### [facility] CLIA [id number] [address] [place] [address] [place] Differential cell count method Nom (Bld) Auto Normal [facility] Comment on above: Order Comment: Speci men Type: BLOOD SPECIMEN Order[facility] Address: [address] [place] [address] Performed By: #### 2 777-1, 86449-8, #### [facility] CLIA [id number] [address] [place] [address] [place] Eosinophils (Bld) [#/Vol] 10*3/uL Normal <0.46 [facility] Comment on above: Order Comment: Speci men Type: BLOOD SPECIMEN [facility] Address: [address] [place] [address] Performed By: #### 2 777-1, 49075-1, #### [facility] CLIA [id number] [address] [place] [address] [place] Eosinophils/100 WBC (Bld) 0.0 % Normal [facility] Comment on above: Order Comment: Speci men Type: BLOOD SPECIMEN [facility] Address: [address] [place] [address] Performed By: #### 2 777-1, 04757-0, #### [facility] CLIA [id number] [address] [place] [address] [place] Erythrocyte distribution width (RBC) [Ratio] 14.4 % Normal 11.5-15.0 [facility] Comment on above: Order Comment: Speci men Type: BLOOD SPECIMEN [facility] Address: [address] [place] [address] Performed By: #### 2 777-1, , #### [facility] CLIA [id number] [address] [place] [address] [place] Hematocrit (Bld) [Volume fraction] 38.3 % Low 39.0-51.0 [facility] Comment on above: Order Comment: Speci men Type: BLOOD SPECIMEN [facility] Address: [address] [place] [address] Performed By: #### 2 777-1, 99838-1, #### [facility] CLIA [id number] [address] [place] [address] [place] Hemoglobin (Bld) [Mass/Vol] 12.0 g/dL Low 13.0-17.0 [facility] Comment on above: Order Comment: Speci men Type: BLOOD SPECIMEN [facility] Address: [address] [place] [address] Performed By: #### 2 777-1, 16221-4, #### [facility] CLIA [id number] [address] [place] [address] [place] Immature granulocytes (Bld) [#/Vol] 0.08 10*3/uL Normal <0.10 [facility] Comment on above: Order Comment: Speci men Type: BLOOD SPECIMEN [facility] Address: [address] [place] [address] Performed By: #### 2 777-1, 03896-0, #### [facility] CLIA [id number] [address] [place] [address] [place] Immature granulocytes/100 WBC (Bld) 0.6 % Normal [facility] Comment on above: Order Comment: Speci men Type: BLOOD SPECIMEN [facility] Address: [address] [place] [address] Performed By: #### 2 777-1, 83109-8, #### [facility] CLIA [id number] [address] [place] [address] [place] Lymphocytes (Bld) [#/Vol] 1.19 10*3/uL Normal 1.00-4.00 [facility] Comment on above: Order Comment: Speci men Type: BLOOD SPECIMEN [facility] Address: [address] [place] [address] Performed By: #### 2 777-1, 46287-9, #### [facility] CLIA [id number] [address] [place] [address] [place] Lymphocytes/100 WBC (Bld) 8.2 % Normal [facility] Comment on above: Order Comment: Speci men Type: BLOOD SPECIMEN [facility] Address: [address] [place] [address] Performed By: #### 2 777-1, 53579-9, #### [facility] CLIA [id number] [address] [place] [address] [place] MCH (RBC) [Entitic mass] 26.5 pg Normal 26.0-34.0 [facility] Comment on above: Order Comment: Speci men Type: BLOOD SPECIMEN Order[facility] Address: [address] [place] [address] Performed By: #### 2 777-1, 81188-8, #### [facility] CLIA [id number] [address] [place] [address] [place] MCHC (RBC) [Mass/Vol] 31.3 g/dL Normal 30.5-36.0 [facility] Comment on above: Order Comment: Speci men Type: BLOOD SPECIMEN [facility] Address: [address] [place] [address] Performed By: #### 2 777-1, 35003-1, #### [facility] CLIA [id number] [address] [place] [address] [place] MCV (RBC) [Entitic vol] 84.5 fL Normal 80.0-100.0 [facility] Comment on above: Order Comment: Speci men Type: BLOOD SPECIMEN [facility] Address: [address] [place] [address] Performed By: #### 2 777-1, 12144-5, #### [facility] CLIA [id number] [address] [place] [address] [place] Monocytes (Bld) [#/Vol] 1.48 10*3/uL High <0.87 [facility] Comment on above: Order Comment: Speci men Type: BLOOD SPECIMEN [facility] Address: [address] [place] [address] Performed By: #### 2 777-1, 29996-3, #### [facility] CLIA [id number] [address] [place] [address] [place] Monocytes/100 WBC (Bld) 10.2 % Normal [facility] Comment on above: Order Comment: Speci men Type: BLOOD SPECIMEN [facility] Address: [address] [place] [address] Performed By: #### 2 777-1, 49414-6, #### [facility] CLIA [id number] [address] [place] [address] [place] Neutrophils (Bld) [#/Vol] 11.69 10*3/uL High 1.45-7.50 [facility] Comment on above: Order Comment: Speci men Type: BLOOD SPECIMEN [facility] Address: [address] [place] [address] Performed By: #### 2 777-1, 92378-6, #### [facility] CLIA [id number] [address] [place] [address] [place] Neutrophils/100 WBC (Bld) 80.9 % Normal [facility] Comment on above: Order Comment: Speci men Type: BLOOD SPECIMEN [facility] Address: [address] [place] [address] Performed By: #### 2 777-1, 67102-9, #### [facility] CLIA [id number] [address] [place] [address] [place] Nucleated RBC (Bld) [#/Vol] 10*3/uL Normal <0.01 [facility] Comment on above: Order Comment: Speci men Type: BLOOD SPECIMEN [facility] Address: [address] [place] [address] Performed By: #### 2 777-1, 51088-5, #### [facility] CLIA [id number] [address] [place] [address] [place] Nucleated RBC/100 WBC (Bld) [Ratio] 0.0 /100 WBC Normal [facility] Comment on above: Order Comment: Speci men Type: BLOOD SPECIMEN [facility] Address: [address] [place] [address] Performed By: #### 2 777-1, 18436-3, #### [facility] CLIA [id number] [address] [place] [address] [place] Platelet mean volume (Bld) [Entitic vol] 9.3 fL Normal 9.0-12.7 [facility] Comment on above: Order Comment: Speci men Type: BLOOD SPECIMEN [facility] Address: [address] [place] [address] Performed By: #### 2 777-1, 45655-4, #### [facility] CLIA [id number] [address] [place] [address] [place] Platelets (Bld) [#/Vol] 180 10*3/uL Normal 150-400 [facility] Comment on above: Order Comment: Speci men Type: BLOOD SPECIMEN [facility] Address: [address] [place] [address] Performed By: #### 2 777-1, 77282-8, #### [facility] CLIA [id number] [address] [place] [address] [place] RBC (Bld) [#/Vol] 4.53 10*6/uL Normal 4.20-6.00 [facility] Comment on above: Order Comment: Speci men Type: BLOOD SPECIMEN [facility] Address: [address] [place] [address] Performed By: #### 2 777-1, 87711-7, #### [facility] CLIA [id number] [address] [place] [address] [place] WBC (Bld) [#/Vol] 14.46 10*3/uL High 3.70-11.00 [facility] Comment on above: Order Comment: Speci men Type: BLOOD SPECIMEN [facility] Address: [address] [place] [address] Performed By: #### 2 777-1, 05397-2, #### [facility] CLIA [id number] [address] [place] [address] [place] HISTORY PHYSICALon HISTORY PHYSICAL HNO ID: [id number] Author: SAMUEL ROBIN MD Service: General Surgery [...] No a (more content not included)... Normal [facility] Magnesium [Mass/Vol] 1.8 mg/dL Normal 1.7-2.3 [facility] Comment on above: Order Comment: Sana zuñiga Type: BLOOD SPECIMEN [facility] Address: [address] [place] [address] Performed By: #### 2 777-1, 74452-3, #### [facility] CLIA [id number] [address] [place] [address] [place] PT panel Coag (PPP)on 2023 INR Coag (PPP) [Relative time] 1.2 {INR} Normal 0.9-1.3 [facility] Comment on above: Order Comment: Sana zuñiga Type: BLOOD SPECIMEN [facility] Address: [address] [place] [address] Result Comment: Winnie min K Antagonist (VKA) Therapeutic Range: INR 2 to 3 (Target INR of 2.5) Note: For patients treated with VKA drugs, such as warfarin, the [place] College [employer] Chest Physicians 2012 Guideline recommends [...] Chest 2012, 141:7S-47S Jonny RA, et al. [facility] 2017, 70: 252-289 Performed By: #### 2 777-1, 25845-1, #### [facility] CLIA [id number] [address] [place] [address] [place] PT Coag (PPP) [Time] 12.3 s Normal 9.7-13.0 [facility] Comment on above: Order Comment: Speci men Type: BLOOD SPECIMEN [facility] Address: [address] [place] [address] Performed By: #### 2 777-1, 61031-2, #### [facility] CLIA [id number] [address] [place] [address] [place] Phosphate SerPl-mCncon 10-27 Phosphate [Mass/Vol] 3.2 mg/dL Normal 2.7-4.8 [facility] Comment on above: Order Comment: Speci men Type: BLOOD SPECIMEN [facility] Address: [address] [place] [address] Performed By: #### 2 777-1, 84698-8, #### [facility] CLIA [id number] [address] [place] [address] [place] SEPSIS LACTATEon 10-28-2023 Lactate [Moles/Vol] 2.0 mmol/L Normal <=2.0 [facility] Comment on above: Order Comment: Speci men Type: BLOOD SPECIMENOrdering [facility] Address: [address] [place] [address] Performed By: #### S LACT ####[facility] [id number] [place] [address] [place] TYPE + SCREENon 10-28-2023 ABO A Normal [facility] Comment on above: Order Comment: Speci men Type: BLOOD SPECIMEN [facility] Address: [address] [place] [address] Performed By: #### 2 4321-2, 32594-0, 2777-1 #### [facility] CLIA [id number] [address] [place] [address] [place] HISTORICAL AB SCR STATUS Negative Normal [facility] Comment on above: Order Comment: Speci men Type: BLOOD SPECIMEN [facility] Address: [address] [place] [address] Performed By: #### 2 4321-2, 98180-6, 2777-1 #### [facility] CLIA [id number] [address] [place], [place] [address] [place] Rh Nom (Bld) Positive Normal [facility] Comment on above: Order Comment: Speci men Type: BLOOD SPECIMEN [facility] Address: [address] [place] [address] Performed By: #### 2 4321-2, 82164-0, 2777-1 #### [facility] CLIA [id number] [address] [place] [address] [place] TYPE AND SCREEN EXPIRATION 10/31/2023 23:59 Normal [facility] Comment on above: Order Comment: Speci men Type: BLOOD SPECIMEN [facility] Address: [address] [place] [address] Performed By: #### 2 4321-2, 33031-4, 2777-1 #### [facility] [facility] CLIA [id number] [address] [place] [address] [place] XR ABDOMEN 1V [...] right lower quadrant on the outside CT). Chha: SUSI Transcribe Date/Time: Oct 28 2023 5:30P Dictated by : WALTER BURGER MD This examination was interpreted and the report reviewed and electronically signed by: WALTER BURGER MD on Oct 28 2023 5:47PM EST [id number] N Normal [facility] Basic metabolic 2000 panelOr dered By: [...] Inclusion of Race in Diagnosing Kidney Disease. Citizen Of [place] Journal of Kidney Diseases 202;79(2):268-88.e1. 2. N Engl J Med 1 Vol. 385 Issue 19 Pages 9501-0454 Glucose [Mass/Vol] 84 mg/dL 74 - 109 [...] vol] 9.1 fL 7.5 - 11.2 fL [facility] Platelets (Bld) [#/Vol] [facility] Comment on above: Platelet cannot be q uantified due to the presence of platelet clumps. Platelet estimate appears normal. RBC (Bld) [#/Vol] 4.59 10*6/uL [facility] WBC (Bld) [#/Vol] 8.6 10*3/uL 4.5 - 11.5 K/uL [facility] CT Head WO contrastOrdered B y: David Kay on 07-16-2023 CT DLP 1126.71 (mGy.cm) [facility] Work Phone: CT Series HEAD W/O,HEAD W/O [facility] Work Phone: CTDI VOL 0.34 (mGy),47.31 (mGy) [facility] Work Phone: PHANTOM TYPE IEC Head Dosimetry Phantom,IEC Head Dosimetry Phantom [facility] Work Phone: [facility] Work Phone: CT Head WO [...] in the left caudate nucleus. MACRO: None [facility] Radiology Study observation (narrative) [facility] MAGNESIUMon 07-16-2023 Interpretation and review of laboratory results Normal [facility] Magnesium [Mass/Vol] 2.1 mg/dL 1.6 - 2 .8 mg/dL [facility] Lithiumon 07-06-2023 [place] [Moles/Vol] 0.9 mmol/L Invalid Interpretation Code 0.5-1.2 [facility] Comment on above: Result Comment: A co ncentration of 0.5-0.8 mmol/L is advised for long-term use; concentrations of up to 1.2 mmol/L may be necessary during acute treatment. Detection Limit = 0.1 <0.1 indicates None Detected Performed at: [facility] [id number] PhD Agata Narayan Performed By: #### 2 170284, 3502667, 6939726, 3088905, 331275265, 1047848, 9414355, 21875499, 0345775 ####[facility] [address] [place] [address] CBC w/Indiceson 07-04-2023 Erythrocyte distribution width (RBC) [Ratio] 13.8 % Normal 10.9-14.2 [facility] Comment on above: Performed By: #### 2 663860, 1755988, 1779044, 8985924, 245755311, 9961051, 4955277, 15328939, 1305649 #### [facility] [address] [place] [address] Hematocrit (Bld) [Volume fraction] 38.1 % Normal 37.7-49.0 [facility] Comment on above: Performed By: #### 2 301754, 8441275, 9254971, 2234275, 643516884, 5134864, 9397593, 52559372, 3830385 #### [facility] [address] [place] [address] Hemoglobin (Bld) [Mass/Vol] 12.7 g/dL Low 13.5-17.5 [facility] Comment on above: Performed By: #### 2 424073, 8678778, 2910206, 9586852, 568785778, 6896034, 2502816, 00729316, 2025241 #### [facility] [address] [place] [address] MCH (RBC) [Entitic mass] 27.6 pg Normal 27.0-34.0 [facility] Comment on above: Performed By: #### 2 413709, 5116210, 6807210, 0528262, 948142699, 4580697, 2298546, 80497431, 0370211 #### [facility] [address] [place] [address] MCHC (RBC) [Mass/Vol] 33.3 g/dL Normal 31.4-36.0 [facility] Comment on above: Performed By: #### 2 674819, 7298452, 5479180, 6011468, 133920517, 8119004, 9371810, 86879712, 1529772 #### [facility] [address] [place] [address] MCV (RBC) [Entitic vol] 83.0 fL Normal 80.0-100.0 [facility] Comment on above: Performed By: #### 2 394837, 5949100, 8320327, 9802181, 943467605, 5122258, 1186409, 99131473, 1199260 #### [facility] [address] [place] [address] Platelet mean volume (Bld) [Entitic vol] 8.5 fL Normal 6.4-10.8 [facility] Comment on above: Performed By: #### 2 401948, 8605600, 6051322, 5797563, 253317213, 2489961, 9733032, 41415524, 7121424 #### [facility] [address] [place] [address] Platelets (Bld) [#/Vol] 175.0 E9/L Normal 150.0-500.0 [facility] Comment on above: Performed By: #### 2 299289, 9484093, 0221465, 4898387, 049874290, 7007951, 1286665, 89874390, 7017291 #### [facility] [address] [place] [address] RBC (Bld) [#/Vol] 4.6 E12/L Normal 4.3-5.9 [facility] Comment on above: Performed By: #### 2 101239, 5791163, 3225563, 0119003, 092195361, 0485690, 3652491, 49107075, 0079850 #### [facility] [address] [place] [address] WBC corrected for nucl RBC Auto (Bld) [#/Vol] 5.9 E9/L Normal 4.0-11.0 [facility] Comment on above: Performed By: #### 2 067595, 9578247, 1109451, 5625340, 571625831, 6713135, 3759715, 33929696, 4491806 #### [facility] [address] [place] [address] CHEMISTRYOrdered By: SYSTEM SYSTEM on 07-04-2023 25-hydroxyvitamin D3 [Mass/Vol] 33.7 ng/mL Normal 30.0 - 100.0 ng/mL [facility] Comment on above: Interpretive Data: Vitamin D deficiency has been defined as a level of serum 25-OH vitamin D less than 20 ng/mL (1,2) by the [place] of [place] and an Endocrine Society practice guideline. The Endocrine Society further defined vitamin D insufficiency as a level between 21 and 29 ng/mL (2). 1. IOM ([place] of Medicine). 2010. Dietary reference intakes for [...] 2.75 m[IU]/L Normal 0.34 - 5.60 mcIU/mL [facility] Remisol Urea nitrogen [Mass/Vol] 20 mg/dL Normal 5 - 21 mg/dL [facility] Remisol Urea nitrogen/Creatinine [Mass ratio] 22 mg/mg High 10 - 20 [facility] Remisol Valproate [Moles/Vol] 79 microgram/mL Normal 50 - 99 mcg/mL [facility] Remisol CMPon 07-04-2023 Albumin [Mass/Vol] 3.7 g/dL Normal 3.3-5.0 [facility] Comment on above: Performed By: #### 2 248317, 3878824, 0141595, 7496395, 219396992, 4043500, 6665048, 85555493, 9047112 #### [facility] [address] [place] [address] Albumin/Globulin (S) [Mass conc ratio] 1.0 Low 1.1-2.2 [facility] Comment on above: Performed By: #### 2 500744, 1286310, 5358925, 1072841, 031193910, 1383017, 8210156, 98786955, 0654490 #### [facility] [address] [place] [address] ALP [Catalytic activity/Vol] 37 Int._Unit/L Normal 21-98 [facility] Comment on above: Performed By: #### 2 367189, 4998138, 3421035, 9626868, 111795309, 5723701, 5173377, 00583524, 9018843 #### [facility] [address] [place] [address] ALT No additional P-5'-P [Catalytic activity/Vol] 15 Int._Unit/L Normal 6-46 [facility] Comment on above: Performed By: #### 2 943402, 1615108, 5666898, 4981994, 297256547, 1755156, 4331687, 79785964, 2532839 #### [facility] [address] [place] [address] Anion gap [Moles/Vol] 12 mmol/L Normal 6-16 [facility] Comment on above: Performed By: #### 2 567284, 4696218, 5857102, 3078903, 569004820, 0144962, 7709750, 12257684, 7076350 #### [facility] [address] [place] [address] AST [Catalytic activity/Vol] 22 Int._Unit/L Normal 5-43 [facility] Comment on above: Performed By: #### 2 036810, 2118901, 7331302, 2900649, 889298938, 7111988, 2285851, 26370758, 0894406 #### [facility] [address] [place] [address] Bilirubin [Mass/Vol] 0.1 mg/dL Normal 0.0-1.[address] [facility] Comment on above: Performed By: #### 2 038399, 4359564, 7949950, 2448847, 442112103, 4950871, 0425708, 59378001, 7423654 #### [facility] [address] [place] [address] Calcium [Mass/Vol] 9.7 mg/dL Normal 8.9-11.1 [facility] Comment on above: Performed By: #### 2 792092, 6639769, 2217369, 2883106, 197048367, 4703113, 6682768, 95829727, 6771993 #### [facility] [address] [place] [address] Chloride [Moles/Vol] 108 mmol/L Normal 101-[address] [facility] Comment on above: Performed By: #### 2 305300, 7987116, 3303360, 1821196, 314910237, 0393631, 0077981, 46517037, 2068388 #### [facility] [address] [place] [address] CO2 [Moles/Vol] 23 mmol/L Normal 21-31 [facility] Comment on above: Performed By: #### 2 760123, 1207381, 4441655, 4820594, 548523298, 6537049, 2714539, 61267329, 3283011 #### [facility] [address] [place] [address] Creatinine [Mass/Vol] 0.9 mg/dL Normal 0.5-1.3 [facility] Comment on above: Performed By: #### 2 239281, 5242168, 8171235, 8246572, 481469963, 4927274, 8210575, 86186745, 1661023 #### [facility] [address] [place] [address] Globulin (S) [Mass/Vol] 3.8 g/dL Normal 1.4-4.0 [facility] Comment on above: Performed By: #### 2 049637, 0424035, 2016164, 6913252, 935065591, 3748928, 9498485, 05357445, 5625125 #### [facility] [address] [place] [address] Glucose [Mass/Vol] 86 mg/dL Normal 55-199 [facility] Comment on above: Result Comment: If t his glucose result represents a fasting glucose, interpretation should refer to the following reference range: 55-99 mg/dL Performed By: #### 2 823695, 1648988, 0754328, 9367158, 221430078, 2069132, 0236535, 55322122, 1108839 #### [facility] [address] [place] [address] Potassium [Moles/Vol] 4.3 mmol/L Normal 3.5-5.3 [facility] Comment on above: Performed By: #### 2 940750, 9716049, 6463845, 9268837, 483144353, 3530708, 9942593, 59074868, 2994865 #### [facility] [address] [place] [address] Protein [Mass/Vol] 7.5 g/dL Normal 6.0-7.8 [facility] Comment on above: Performed By: #### 2 440693, 5836155, 7797868, 2078830, 767522287, 5010159, 0995542, 50816172, 3884843 #### [facility] [address] [place] [address] Sodium [Moles/Vol] 139 mmol/L Normal 135-145 [facility] Comment on above: Performed By: #### 2 074226, 1601224, 2464570, 6967758, 953297744, 2612272, 4488451, 80558922, 9222425 #### [facility] [address] [place] [address] Urea nitrogen [Mass/Vol] 20 mg/dL Normal 5-21 [facility] Comment on above: Performed By: #### 2 149926, 8430519, 0447564, 3901722, 465088314, 8657880, 7278549, 99070460, 2460973 #### [facility] [address] [place] [address] Urea nitrogen/Creatinine [Mass ratio] 22 No Units High 10-20 [facility] Comment on above: Performed By: #### 2 703732, 9991862, 8947004, 2078320, 609441864, 6844263, 1768672, 25424515, 5270563 #### [facility] [address] [place] [address] Free T4on 07-04-2023 Free T4 [Mass/Vol] 0.70 ng/dL Normal 0.58-1.64 [facility] Comment on above: Performed By: #### 2 315347, 0998457, 5210306, 5200157, 477631341, 7896224, 9666486, 78352252, 3734760 #### [facility] [address] [place] [address] HEMATOLOGYOrdered By: Jersey Arnett on 07-04-2023 Erythrocyte [...] 8.5 fL Normal 6.4 - 10.8 fL [facility] HemeAutoSS Platelets (Bld) [#/Vol] 175.0 E9/L Normal 150.0 - 500.0 E9/L [facility] HemeAutoSS RBC (Bld) [#/Vol] 4.6 E12/L Normal 4.3 - 5.9 E12/L [facility] HemeAutoSS WBC corrected for nucl RBC Auto (Bld) [#/Vol] 5.9 E9/L Normal 4.0 - 11.0 E9/L [facility] HemeAutoSS Lipid Panelon 07-04-2023 Cholesterol [Mass/Vol] 145 mg/dL Normal 120-200 [facility] Comment on above: Performed By: #### 2 986462, 4914720, 1991967, 4373659, 572452526, 7780833, 5010086, 74222377, 1214393 #### [facility] [address] [place] [address] Cholesterol in HDL [Mass/Vol] 40 mg/dL Invalid Interpretation Code [facility] Comment on above: Result Comment: HDL > or equal to 60 mg/dL: Low cardiovascular risk HDL < 40 mg/dL : High cardiovascular risk Performed By: #### 2 732669, 3230716, 3812710, 7844013, 460526425, 2135826, 7915925, 87886808, 5427028 #### [facility] [address] [place] [address] Cholesterol in LDL [Mass/Vol] 86 mg/dL Normal <=129 [facility] Comment on above: Performed By: #### 2 503208, 5730864, 9047211, 6793760, 174792701, 3153828, 7651352, 96557516, 3678183 #### [facility] [address] [place] [address] Cholesterol in VLDL [Mass/Vol] 27 mg/dL Normal 7-40 [facility] Comment on above: Performed By: #### 2 862023, 9759647, 1088438, 8522983, 322064985, 1245419, 7522903, 26148924, 1684405 #### [facility] [address] [place] [address] Triglyceride [Mass/Vol] 133 mg/dL Normal <=149 [facility] Comment on above: Performed By: #### 2 994755, 7991186, 7518435, 8150634, 168938658, 8717143, 1842599, 32583241, 4704228 #### [facility] [address] [place] [address] Physician Orderon 07-04-2023 Physician Order [id number]# 1.00TIFF Normal [facility] TSHon 07-04-2023 TSH Qn 2.75 m[IU]/L Normal 0.34-5.60 [facility] Comment on above: Performed By: #### 2 365997, 9310144, 5926587, 2328093, 000247118, 5659069, 8156605, 53376543, 4319877 #### [facility] [address] [place] [address] Valproic Acidon 07-04-2023 Valproate [Moles/Vol] 79 microgram/mL Normal 50-99 [facility] Comment on above: Performed By: #### 2 997089, 9221178, 5158277, 0602793, 315666600, 9695455, 8136157, 26297500, 9924989 #### [facility] [address] [place] [address] Vitamin D 25 Hydroxyon 07-04 25-hydroxyvitamin D3 [Mass/Vol] 33.7 ng/mL Normal 30.0-100.0 [facility] Comment on above: Result Comment: Vit alfredo D deficiency has been defined as a level of serum 25-OH vitamin D less than 20 ng/mL (1,2) by the [place] of [place] and an Endocrine Society practice guideline. The Endocrine Society further defined vitamin D insufficiency as a level between 21 and 29 ng/mL (2). 1. IOM ([place] of [employer]). 2010. Dietary reference intakes for calcium and D. [place]: The National Academies Press. 2. Denia MF, Marcelino CHAIDEZ, Ann GARVYE, et al. Evaluation, treatment, and prevention of vitamin D deficiency: an Endocrine Society clinical practice guideline. JCEM. 2010; 96 (7):1911-30. Performed By: #### 2 357152, 4610301, 8157932, 7959313, 991309779, 9769010, 7524807, 89538634, 2882068 #### [facility] [address] [place] [address] eGFRon 07-04-2023 GFR/1.73 sq M.predicted among non-blacks MDRD (S/P/Bld) [Vol rate/Area] 118 mL/min/1.73 m2 Normal >=59 [facility] Comment on above: Order Comment: Order added by Discern Expert. Result Comment: Principal Solutions Architect jenni kidney disease could be indicated at eGFR's of less than 60 mL/min/1.73m2. Kidney failure is indicated at less than 15 mL/min/1.73m2. Performed By: #### 2 628335, 5294490, 8314510, 3346489, 381063867, 8142562, 4237526, 80174809, 6870398 #### [facility] [address] [place] [address] XR Chest PA and Lateralon EXAMINATION: XR [...] indicated with dedicated abdominal radiograph/CT. MACRO: None [facility] Radiology Study observation (narrative) [facility] XR Chest PA and LateralOrder ed By: Krystal Epstein on 06-22-2023 [facility] Work Phone: DEPAKENE/ VALPROIC ACIDon DEPAKENE 59.3 ug/ml Normal 50.0-100.0 [facility] Comment on above: Performed By: #### V ALP #### [facility] [address] [place] [address] Dr. Nikky King DEPAKENE/ VALPROIC ACIDon DEPAKENE 43.6 ug/ml Critically low 50.0-100.0 [facility] Comment on above: Performed By: #### V ALP #### [facility] [address] [place] [address] Dr. Nikky King LITHIUMon 12-06-2022 [place] (Eskalith(R)), Serum 0.8 mmol/L Normal 0.5-1.[address] [facility] Comment on above: Result Comment: A co ncentration of 0.5-0.8 mmol/L is advised for long-term use; concentrations of up to 1.2 mmol/L may be necessary during acute treatment. Detection Limit = 0.1 <0.1 indicates None Detected Performed By: #### L ITHIUM #### [facility] [address] [place] [address] Dr. Nikky King DEPAKENE/ VALPROIC ACIDon DEPAKENE 61.7 ug/ml Normal 50.0-100.0 [facility] Comment on above: Performed By: #### V ALP #### [facility] [address] [place] [address] Dr. Nikky King LITHIUMon 11-23-2022 [place] (Eskalith(R)), Serum 0.9 mmol/L Normal 0.5-1.[address] [facility] Comment on above: Result Comment: A co ncentration of 0.5-0.8 mmol/L is advised for long-term use; concentrations of up to 1.2 mmol/L may be necessary during acute treatment. Detection Limit = 0.1 <0.1 indicates None Detected Performed By: #### L ITHIUM #### [facility] [address] [place] [address] Dr. Nikky King CALCIUMon 08-22-2022 Calcium [Mass/Vol] 9.6 mg/dL Normal 8.5-10.1 [facility] Comment on above: Performed By: #### C A, CREA #### [facility] [address] [place] [address] Dr. Nikky King CREATININEon 08-22-2022 Creatinine [Mass/Vol] 0.84 mg/dL Normal 0.70-1.30 [facility] Comment on above: Performed By: #### C A, CREA #### [facility] [address] [place] [address] Dr. Nikky King EGFR-AF PALAUAN >60 Normal >=60 [facility] Comment on above: Performed By: #### C A, CREA #### [facility] [address] [place] [address] Dr. Nikky King EGFR-NON AF PALAUAN >60 Normal >=60 [facility] Comment on above: Performed By: #### C A, CREA #### [facility] [address] [place] [address] Dr. Nikky King LITHIUMon 07-05-2022 [place] (Eskalith(R)), Serum 0.9 mmol/L Normal 0.5-1.2 [facility] Comment on above: Result Comment: A co ncentration of 0.5-0.8 mmol/L is advised for long-term use; concentrations of up to 1.2 mmol/L may be necessary during acute treatment. Detection Limit = 0.1 <0.1 indicates None Detected Performed By: #### L ITHIUM #### [facility] [address] [place] [address] Dr. Nikky King Vital Signs Date Time Vital Sign Value Performing Clinician Severinoi lity 12-02-2024 12:32-0400 Body height 167.6 cm [employer] Work Phone: [facility] Drizly 12-02-2024 12:32-040 Body mass index (BMI) [Ratio] 31.96 kg/m2 [employer] Work Phone: [facility] Drizly 12-02-2024 12:32040 Body weight 89.81 kg [employer] Work Phone: [facility] 12-02-2024 12:32-0400 Diastolic blood pressure 82 mm[Hg] Cris Lowe PA Work Phone: [facility] 12-02-2024 12:32-0400 Systolic blood pressure 128 mm[Hg] Cris Lowe PA Work Phone: [facility] 05-21-2024 09:29-0400 Body height 167.6 cm Cris Lowe PA Work Phone: [facility] 05-21-2024 09:29-0400 Body mass index (BMI) [Ratio] 31.96 kg/m2 Cris Lowe PA Work Phone: [facility] 05-21-2024 09:29-0400 Body weight 89.81 kg Cris Lowe PA Work Phone: [facility] 05-21-2024 09:29-0400 Diastolic blood pressure 90 mm[Hg] Cris Lowe PA Work Phone: [facility] 05-21-2024 09:29-0400 Systolic blood pressure 136 mm[Hg] Cris Lowe PA Work Phone: [facility] 12-28-2023 14:30-0400 Diastolic blood pressure 89 mm[Hg] Mari Traore DMD Work Phone: [facility] 12-28-2023 14:30-0400 Heart rate 69 /min Mariayanna Traore DMD Work Phone: [facility] 12-28-2023 14:30-0400 Respiratory rate 10 /min Mari Traore DMD Work Phone: [facility] 12-28-2023 14:30-0400 SaO2% (BldA) [Mass fraction] 100 % Mariayanna Vaner DMD Work Phone: [facility] 12-28-2023 14:30-0400 Systolic blood pressure 135 mm[Hg] Mari Traore DMD Work Phone: [facility] 12-28-2023 13:52-0400 Body temperature 97.3 [degF] Mari Vaner DMD Work Phone: [employer] 12-28-2023 09:15-0400 Body height 167.6 cm Mari Traore DMD Work Phone: [employer] 12-28-2023 09:15-0400 Body mass index (BMI) [Ratio] 31.8 kg/m2 Mari Traore DMD Work Phone: [employer] 12-28-2023 09:15-0400 Body weight 89.36 kg Mari Traore DMD Work Phone: [employer] 12-19-2023 11:23-0400 Diastolic blood pressure 90 mm[Hg] Ling Khaiiv RN HEMODIALYSIS CHARGE-[employer] BUTTER FILTER OPERATOR Work Phone: [employer] 12-19-2023 11:23-0400 Systolic blood pressure 132 mm[Hg] Ling Khaiiv RN HEMODIALYSIS CHARGE-[employer] BUTTER FILTER OPERATOR Work Phone: [employer] 12-19-2023 11:03-0400 Body height 167.6 cm Ling Khaiiv RN HEMODIALYSIS CHARGE-[employer] BUTTER FILTER OPERATOR Work Phone: [employer] 12-19-2023 11:03-0400 Body mass index (BMI) [Ratio] 31.8 kg/m2 Ling Markiv RN HEMODIALYSIS CHARGE-[employer] BUTTER FILTER OPERATOR Work Phone: [employer] 12-19-2023 11:03-0400 Body temperature 97.81 [degF] Ling Markiv RN HEMODIALYSIS CHARGE-[employer] BUTTER FILTER OPERATOR Work Phone: [employer] 12-19-2023 11:03-0400 Body weight 89.36 kg Ling Markiv RN HEMODIALYSIS CHARGE-[employer] BUTTER FILTER OPERATOR Work Phone: [employer] 12-19-2023 11:03-0400 Heart rate 59 /min Ling Markiv RN HEMODIALYSIS CHARGE-[employer] BUTTER FILTER OPERATOR Work Phone: [employer] 12-19-2023 11:03-0400 Respiratory rate 18 /min Ling Khaiiv RN HEMODIALYSIS CHARGE-[employer] BUTTER FILTER OPERATOR Work Phone: [employer] 12-19-2023 11:03-0400 SaO2% (BldA) [Mass fraction] 97 % Ling Ridleyclaudia RN HEMODIALYSIS CHARGE-[employer] BUTTER FILTER OPERATOR Work Phone: [facility] 12-03-2023 13:07-0400 Body height 167.6 cm Oscar Ruiz MD Work Phone: [facility] 12-03-2023 13:07-0400 Body weight 92.53 kg Oscar Ruiz MD Work Phone: [facility] 12-03-2023 13:07-0400 Diastolic blood pressure 76 mm[Hg] Oscar Ruiz MD Work Phone: [facility] 12-03-2023 13:07-0400 Heart rate 71 /min Oscar Ruiz MD Work Phone: [facility] 12-03-2023 13:07-0400 Systolic blood pressure 111 mm[Hg] Oscar Ruiz MD Work Phone: [facility] 11-28-2023 09:48-0400 Body height 167.6 cm Victoria Daniel RN HEMODIALYSIS CHARGE.[employer] BUTTER FILTER OPERATOR Work Phone: [facility] 11-28-2023 09:48-0400 Body temperature 97.5 [degF] Victoria Daniel RN HEMODIALYSIS CHARGE.[employer] BUTTER FILTER OPERATOR Work Phone: [facility] 11-28-2023 09:48-0400 Body weight 87.54 kg Victoria Daniel RN HEMODIALYSIS CHARGE.[employer] BUTTER FILTER OPERATOR Work Phone: [facility] 11-28-2023 09:48-0400 Diastolic blood pressure 66 mm[Hg] Victoria Daniel RN HEMODIALYSIS CHARGE.[employer] BUTTER FILTER OPERATOR Work Phone: [facility] 11-28-2023 09:48-0400 Heart rate 83 /min Victoria Daniel RN HEMODIALYSIS CHARGE.[employer] BUTTER FILTER OPERATOR Work Phone: [facility] 11-28-2023 09:48-0400 Systolic blood pressure 134 mm[Hg] Victoria Daniel RN HEMODIALYSIS CHARGE.[employer] BUTTER FILTER OPERATOR Work Phone: [facility] 07-16-2023 08:06-0500 Body mass index (BMI) [Ratio] 33.97 kg/m2 Kim Beltre MD Work Phone: [employer] 07-16-2023 08:06-0500 Body temperature 97.5 [degF] Kim Beltre MD Work Phone: [employer] 07-16-2023 08:06-0500 Body weight 90.27 kg Kim Beltre MD Work Phone: [employer] 07-16-2023 08:06-0500 Diastolic blood pressure 80 mm[Hg] Kim Beltre MD Work Phone: [employer] 07-16-2023 08:06-0500 Heart rate 37 /min Kim Beltre MD Work Phone: [employer] 07-16-2023 08:06-0500 Respiratory rate 15 /min Kim Beltre MD Work Phone: [employer] 07-16-2023 08:06-0500 SaO2% (BldA) [Mass fraction] 100 % Kim Beltre MD Work Phone: [employer] 07-16-2023 08:06-0500 Systolic blood pressure 110 mm[Hg] Kim Beltre MD [facility] En[facility] Encounter Date Encounter Type Care Provider Facility Start: 02-24-2025 End: 02-24-2025 Patient encounter procedure Kendra Jaramillo DDS Work Phone: Patient Resource Coordinator Residency Comment on above: Encounter for dental examination (Primary Dx) Start: 02-24-2025 End: 02-24-2025 Patient encounter status Kendra Clint MATA Work Phone: [facility] Work Phone: Start: 12-16-2024 End: [...] Letter encounter Gallagherroger Corcoran DDS Work Phone: [employer] Start: 05-21-2024 End: 05-21-2024 Bamboo flowsheet Cris Lowe PA Work Phone: [facility] [address] [facility] Start: 05-21-2024 End: 05-21-2024 Bamboo flowsheet Cris Lowe PA Work Phone: [facility] [address] [facility] Start: 05-21-2024 End: 05-21-2024 Office outpatient visit 15 minutes Cris Lowe PA Work Phone: [facility] [employer] [address] Comment on above: Alteration of awaren ess (Primary Dx) Start: 05-21-2024 End: 05-21-2024 ambulatory CRIS LOWE Not Available Start: 05-18-2024 End: 05-18-2024 Letter encounter Aileen Corcoran DDS Work Phone: [facility] Start: 02-13-2024 End: 02-13-2024 Lab Drop off HERMAN ROMERORING [facility] Start: 02-13-2024 End: 02-13-2024 ambulatory HREMAN CRANE Facility:[facility] Start: 01-29-2024 End: 01-29-2024 ambulatory CRIS LOWE Not Available Start: 01-11-2024 Telephone encounter Cris Dinh RN Colorectal Surgery Comment on above: Web Operations Administrator - O ther Start: 12-28-2023 End: 12-31-2023 Patient encounter procedure Mari Kassidy DMD Work Phone: [facility] Start: 12-28-2023 End: 12-28-2023 Subsequent hospital visit by physician Mari Traore DMD Work Phone: [facility] Ambulatory Surgery Start: 12-28-2023 End: 12-31-2023 ambulatory RYAN ZURITA Facility:[facility] Start: 12-25-2023 Telephone encounter Shayy Chandler RN [facility] Pre-Admission Testing Comment on above: Pre-surgical Evaluat ion (DD adult dental restorations 12/27 under GA at [place]. PAT completed - consent request sent to main - see future encounter for results. CHRISTINA RN spoke to [facility], confirmed O, [place] address, and 0900 arrival time/) Pre-surgical Evaluat ion (Anesthesia Attestaion for dental surgery scanned in multimedia journalist) Start: 12-20-2023 End: 12-20-2023 Orders Only Victoria Sanchez APRN.COCOA BUTTER FILTER OPERATOR Work Phone: General Surgery Comment on above: Sigmoid volvulus (HC C) (Primary Dx) Start: 12-19-2023 End: 12-19-2023 Patient encounter procedure Ling Coffman RN HEMODIALYSIS CHARGE-COCOA BUTTER FILTER OPERATOR Work Phone: [facility] Pre-Admission Testing Comment on above: Pre-op testing (Prim marylin Dx); Body mass index (BMI) 31.0-31.9, adult Start: 12-19-2023 End: 12-19-2023 Patient encounter status Ling Coffman RN HEMODIALYSIS CHARGE-COCOA BUTTER FILTER OPERATOR Work Phone: [facility] Work Phone: Start: 12-19-2023 ambulatory RYAN ZURITA Facilit y:[facility] Start: 12-19-2023 Encounter for other preprocedural examination LING COFFMAN [facility] Start: 12-11-2023 End: 12-11-2023 ambulatory EPIFANIO HUNTLEY Not Available Start: 12-03-2023 End: 12-04-2023 ambulatory Rafael Giraldo MD Work Phone: Urology Start: 12-03-2023 End: 12-03-2023 Office outpatient visit 5 minutes Oscar Ruiz MD Work Phone: Urology Comment on above: Phimosis (Primary Dx ) Start: 11-28-2023 End: 11-29-2023 ambulatory VICTORIA SANCHEZ Facility:[facility] Start: 11-28-2023 End: 11-28-2023 Patient encounter procedure Victoria Sanchez RN HEMODIALYSIS CHARGE.COCOA BUTTER FILTER OPERATOR Work Phone: General Surgery Comment on above: Postoperative visit (Primary Dx) Start: 11-12-2023 Telephone encounter Cris Dinh RN Colorectal Surgery Comment on above: Web Operations Administrator - O ther Start: 11-07-2023 End: 11-07-2023 ambulatory PHOENIX CARDENAS Facility:[facility] Start: 10-28-2023 Evaluation and management of inpatient PHOENIX CARDENAS Facility:[facility] Start: 10-10-2023 Admission to [facility] Coleen Dodson DDS Other Phone: [facility] Start: 07-16-2023 End: 07-16-2023 Emergency department patient visit Kim Beltre MD Work Phone: [facility] Emergency Department Comment on above: bradycardia (Low HR (33)) Start: 07-16-2023 End: 07-16-2023 Subsequent hospital visit by physician Harpreet Mccurdy DDS Work Phone: [facility] Radiology CT Scan Comment on above: Arrived Start: 07-04-2023 End: 07-04-2023 ambulatory HERMAN CRANE Facility:[facility] Start: 07-04-2023 End: 07-04-2023 Lab Drop off HERMAN CRANE [facility] Start: 06-26-2023 Telephone encounter Shanna marquez RN [facility] Pre Surgical Evaluation Comment on above: Pre-surgical Evaluat ion (Informed Consent for dental surgery & Anesthesia consent obtained) Start: 06-22-2023 End: 06-22-2023 Subsequent hospital visit by physician Op Xray 2 [facility] Comment on above: Pre-op exam Start: 06-22-2023 End: 06-22-2023 Patient encounter procedure Pse Anesthesia [facility] Pre Surgical Evaluation Comment on above: Pre-op evaluation (P rimary Dx) Start: 06-22-2023 End: 06-22-2023 Preprocedural examination done Pse Anesthesia [facility] Work Phone: Start: 05-25-2023 Admission to [facility] Hiram Rodriguez DDS Work Phone: [facility] Start: 01-17-[address] HERMAN CRANE [...] other specified special examinations DR HERMAN CRANE [facility] Start: 08-22-2022 End: 08-23-[address] HERMAN [...] Start: 03-29-2022 Telephone encounter To Be Assigned [facility] Physician Referral Service Comment on above: Medical Record Revie w Procedures Date Procedure Procedure Detail Performing Clinician Start: 02-24-2025 LIMITED ORAL EVALUAT ION - PROBLEM FOCUSED Kendra Jaramillo DDS Work Phone: Start: 02-24-2025 PANORAMIC RADIOGRAPH IC IMAGE Kendra Jaramillo DDS Work Phone: Start: 12-19-2023 Basic metabolic pane l calcium total Ling Markiv RN HEMODIALYSIS CHARGE-COCOA BUTTER FILTER OPERATOR Work Phone: Start: 10-28-2023 Antibody screen PHOENIX CARDENAS Comment on above: Order Comment: Speci men Type: BLOOD SPECIMEN Ordering Facility: [facility] Address: [address] [place] [address] Performed By: #### 2 4321-2, [id number], 2777-1 #### [facility] CLIA [id number] [address] [place] [address] [place] [address] [place] Start: 07-16-2023 End: [...] 2) [facility] Start: 07-10-2029 Tetanus vaccination [facility] Start: 07-10-2029 Urine microalbumin profile DTaP,Tdap,Td Vaccine (2 - Td or Tdap) [facility] Start: 04-20-2025 Influenza vaccination INFLUENZA VACC INE (#1) [facility] Start: 12-02-2024 End: 12-02-2024 Patient encounter procedure [facility] Comment on above: Arrived Start: 05-21-2024 End: 05-21-2024 Patient encounter procedure 05/21/2024 9:40 AM EDT Office Visit [facility] [address] [place] [address] Cris Walters PA [address] [place] [address] Arrived [facility] Comment on above: Arrived Start: 04-20-2024 COVID-19 VACCINE ( season) COVID-19 VACCINE ( season) [facility] Start: 04-20-2024 COVID-19 Vaccine ( season) COVID-19 Vaccine ( season) [facility] Start: 04-20-2024 COVID-19 Vaccine ( season) COVID-19 Vaccine ( season) [facility] Start: 04-20-2024 Influenza vaccination Influenza Vacc ine (#1) [facility] Start: 03-11-2024 End: 03-11-2024 Patient encounter procedure 03/11/2024 9:00 AM EDT Office Visit [facility] [address] [place], [place] [phone] Iain Lazcano MD [address] [place] [address] Cataracts Ophthalmology Comment on above: Cataracts Start: 12-28-2023 End: 12-28-2023 Admission to same day surgery center 12/28/2023 10:01 AM EDT - 12/28/2023 12:21 PM EDT Surgery [facility] Ambulatory Surgery [address] [place] [id number] Mari Traore, DMD [address] [place], [place] [phone] DENTAL RESTORATIONS [facility] Ambulatory Surgery Comment on above: DENTAL RESTORATIONS Start: 12-28-2023 End: 12-28-2023 DENTAL RESTORATIONS [facility] Start: 12-28-2023 Subsequent hospital visit by physician 12/28/2023 10:01 AM EDT Hospital Encounter [facility] Ambulatory Surgery [address] [place] [address] Mari Traore, DMD [address] [place], [place] [phone] [facility] Ambulatory Surgery Start: 12-28-2023 End: 12-28-2023 Patient encounter procedure 12/28/2023 9:00 AM EDT Procedure Visit [facility] [address] [place] [address] Mari Traore, DMD [address] [place], [place] [phone] [facility] Start: 08-20-2023 Behavioral Health Screening Behavioral Health Screening [facility] Start: 08-20-2023 Depression Assessment Depression Ass essment [facility] Start: 07-16-2023 End: 07-16-2023 DENTAL RESTORATIONS DENTAL RESTORATIONS Routine scheduled Caries 07/16/2023 1:45 PM EST [facility] Start: 07-16-2023 End: 07-16-2023 Admission to same day surgery center 07/16/2023 9:27 AM EST - 07/16/2023 11:24 AM EST Surgery [facility] Ambulatory Surgery [address] [place] [address] Harpreet Mccurdy, DDS [address] [place], [place] [phone] DENTAL RESTORATIONS [facility] Ambulatory Surgery Comment on above: DENTAL RESTORATIONS Start: 07-16-2023 End: 07-16-2023 DENTAL RESTORATIONS DENTAL RESTORATIONS Routine scheduled Caries 07/16/2023 9:27 AM EST [facility] Start: 07-16-2023 Subsequent hospital visit by physician [facility] Amb[facility] Start: 06-22-2023 End: 06-22-2023 Patient encounter procedure 06/22/2023 2:30 PM EDT Office Visit [facility] Pediatric [facility] [address] [place] [address] Franc Beyer MD [facility] [place] [phone] [facility] Start: 04-20-2023 COVID-19 Vaccine () COVID-19 Vaccine ( season) [facility] Start: 04-20-2023 Influenza vaccination Influenza Vacc ine (#1) [facility] Start: 05-20-2022 Influenza vaccination Influenza Vacc ine (#1) [facility] Start: 04-20-2022 Influenza vaccination INFLUENZA (#1) [facility] Start: 08-20-2021 DEPRESSION ASSESSMENT DEPRESSION ASS ESSMENT [facility] Start: 08-10-2021 COVID-19 VACCINE (4 - Booster for Pfizer series) COVID-19 VACCINE (4 - Booster for Pfizer series) [facility] Start: 2019 HPV Vaccine (optiona l start 27-45 years) HPV Vaccine (optional start 27-45 years) [facility] Start: 02-17-2014 Annual wellness visit Annual W ellness Visit (G0438) [facility] Start: 2011 Hepatitis A (HAV) Vaccine (optional start 19+ years) Hepatitis A (HAV) Vaccine (optional start 19+ years) [facility] Start: 2011 Hepatitis B vaccination [facility] Start: 2011 Hepatitis B Vaccine (1 of 3 - 19+ 3-dose series) Hepatitis B Vaccine (1 of 3 - 19+ 3-dose series) [facility] Start: 2011 Urine microalbumin profile DTAP,TDAP,TD (1 - Tdap) [facility] Start: 2010 Annual PCP Team Principal Solutions Architect jenni Disease Visit Annual PCP Team Chronic Disease Visit [facility] Start: 2010 Hepatitis C screening M [facility] Start: 2010 HEPATITIS C SCREENING HEPATITIS C SC REENING [facility] Start: 2010 HIV SCREENING HIV SCREENING [facility] Start: 2010 HIV screening HIV Screening [facility] Start: 2007 HIV screening [facility] Start: 2004 Adult depression screening assessment DEPRESSION SCREENING [facility] Start: 1992 HEPATITIS B (1 of 3 - 3-dose series) HEPATITIS B (1 of 3 - 3-dose series) [facility] Start: 1992 Hepatitis B vaccination Hepati tis B (HBV) Vaccine (1 of 3 - 3-dose series) [facility] Start: 1992 Hepatitis C screening HEPATITI S C VIRUS SCREENING [facility] Start: 1992 Thyroid stimulating hormone [facility] COMPREHENSIVE ORAL E GORDON - NEW/EST PATIENT COMPREHENSIVE ORAL EVAL - NEW/EST PATIENT Dental Routine 1 Occurrences starting 02/24/2025 [facility] Work Phone: Comment on above: 1 Occurrences starti ng 02/24/2025 DENTAL RESTORATIONS DENTAL OMAR RATIONS Routine scheduled [facility] INTRAORAL - COMPLETE SERIES OF RADIOGRAPHIC IMAGES INTRAORAL - COMPLETE SERIES OF RADIOGRAPHIC IMAGES Dental Routine 1 Occurrences starting 02/24/2025 [facility] Work Phone: Comment on above: 1 Occurrences starti ng 02/24/2025 PROPHYLAXIS - ADULT PROPHYLAXIS - ADULT Dental Routine 1 Occurrences starting 02/24/2025 [facility] Work Phone: Comment on above: 1 Occurrences starti ng 02/24/2025 URINALYSIS, REFLEX MICROSCOPIC URINALYSIS, REFLEX MICROSCOPIC Lab Routine Screening for genitourinary condition Ordered: 12/03/2023 [facility] Work Phone: Comment on above: Ordered: 12/03/2023 [facility] Immunizations Immunization Date Immunization Notes Care Provider Jason lowe 06-05-2024 influenza virus vaccine, unspecified formulation Kendra Jaramillo DDS Work Phone: [facility] Work Phone: 06-15-2021 influenza, injectabl e, quadrivalent, preservative free To Assigned [facility] 06-15-2021 influenza virus vaccine, unspecified formulation To Assigned [facility] 05-26-2020 influenza, injectabl e, quadrivalent, preservative free To Assigned [facility] 07-10-2019 tetanus toxoid, reduced diphtheria toxoid, and acellular pertussis vaccine, adsorbed To Assigned [facility] 06-13-2019 influenza, injectabl e, quadrivalent, preservative free To Assigned [facility] 05-29-2018 influenza, injectabl e, quadrivalent, preservative free To Assigned [facility] 06-13-2017 influenza, injectabl e, quadrivalent, contains preservative To Assigned [facility] 06-10-2015 influenza, injectabl e, quadrivalent, preservative free To Assigned [facility] 06-12-2012 influenza, seasonal, injectable To Assigned [facility] 05-03-2011 influenza, seasonal, injectable, preservative free To Assigned [facility] 06-15-2010 influenza, seasonal, injectable To Assigned [facility] 07-07-2009 novel [id number], preservative-free, injectable To Assigned [facility] 05-11-2009 influenza, seasonal, injectable To Assigned [facility] 06-15-2008 influenza, seasonal, injectable To Assigned [facility] 06-11-2008 influenza virus vaccine, whole virus To Assigned [facility] Payers Date Payer Category Payer Specific state progr [employer] (list/ local code) [place] FUNDED 0000 [id number] 07-08-2020 Unknown [id number] 07-20-2017 Dental --Stand Alone DENTAL-MEDI CAID [id number] 07-20-2017 Medicaid [id number] 02-17-2013 Medicare [id number] [id number] .[id number] 02-17-2013 Medicare FFS MEDICARE [id number] 1992 Unknown [id number] 2.840.1.179179.3.579.2. 727 1992 Unknown [id number] 2.16840.1.762541.3.579.2. 727 1992 Unknown [id number] 2.840.1.958730.3.579.2. 9 1992 Unknown [id number] 2.16840.1.279054.3.579.2. 1259 1992 Unknown [id number] 2.16840.1.826193.3.579.2. 1259 1992 Unknown [id number] 2.16.840.1.482361.3.579.2. 1259 1992 Unknown [id number] 2.16.840.1.563448.3.579.2. 1259 1992 Unknown [id number] 2.16.840.1.483029.3.579.2. 732 1992 Unknown [id number] 2.16.840.1.425568.3.579.2. 732 1992 Unknown [id number] 2.16.840.1.494949.3.579.2. 732 1992 Unknown [id number] 2.16.840.1.792143.3.579.2. 732 08-20-1957 Medicaid [id number] 08-20-1957 Medicare [id number] Unknown [id number] 2.16.840.1.311168.3.579.2. 593 Unknown [id number] 2.16.840.1.967848.3.579.2. 593 Unknown [id number] 2.16.840.1.307390.3.579.2. 593 Unknown [id number] 2.16.840.1.257165.3.579.2. 593 Unknown [id number] 2.16.840.1.664118.3.579.2. 593 Unknown [id number] 2.16.840.1.718043.3.579.2. 593 Unknown [id number] 2.16.840.1.710151.3.579.2. 593 Unknown [id number] 2.16.840.1.526873.3.579.2. 593 Specific state progr ams (list/ local code) TB FUNDED Member Subscriber Plan / Payer (Effective for All Dates) Name: Johnny Devine Member ID: Not on file Relation to Subscriber: Self Name: Johnny Devine Subscriber ID: Not on file Payer ID: Not on file Group ID: Not on file Type: Other Address: [place] [id number] Social History Date Type Detail Facility Start: 07-08-2019 End: 02-24-2025 Tobacco smoking status NHIS Never smoked tobacco [facility] Start: 07-08-2019 End: 02-24-2025 Tobacco use and exposure Smokeless tobacco non-user [facility] Start: 02-04-2021 End: 02-24-2025 Alcohol intake Lifetime non-drinker (finding) [facility] Start: 07-13-2020 History SDOH Alcohol Frequency 1 [facility] Start: 1992 Sex Assigned At Not on file M [facility] Start: 05-04-2022 End: 12-19-2023 Tobacco smoking status [facility] Tobacco smoking consumption unknown [facility] Start: 04-24-2022 End: 05-04-2022 Exposure to SARS-CoV-2 (event) Not sure [facility] Start: 10-29-2023 End: 02-24-2025 Gender identity Not on file [facility] Tobacco smoking status No Smokin g Status Entered [facility] Start: 10-29-2023 End: 02-24-2025 History of Social function [facility] Work Phone: Has the [place], or [employer] threatened to shut off services in your home in past 12Mo Patient unable to answer [facility] Work Phone: How often to you hav e a drink containing alcohol? Never [facility] Work Phone: Start: 07-20-2017 End: 01-26-2025 Sex Male (finding) [facility] Clinical Notes 03-29-2022 to 02-24-2025 Kendra Jaramillo DDS - 02/24/2025 10:00 AM EDTPatient InstructionsDental Procedure Details - Kendra Jaramillo DDS - 02/24/2025 10:00 AM BETI Antonio - 12/02/2024 12:40 PM EDTDischaricardo Instructions Note Date & Type Note Facility 02-24-2025 History of Present illness Narrative Dental Exam 02/24/2025 Data Systems Manager Needed: No. Chief Complaint Patient presents with [...] capsule Take 1 capsule by mouth daily. [place] 300 MG capsule TAKE ONE CAPSULE BY [...] candidate for sedation within the [facility] clinic setting. As such, we have [...] Kendra Jaramillo DDS documented in this encounter [facility] Work Phone: 02-24-2025 [...] daily ADDITIONAL RECOMMENDATIONS: documented in this encounter [facility] Work Phone: 02-24-2025 Miscellaneous Notes Was local anesthetic administered? No Refer to assessment note above documented in this encounter [facility] Work Phone: 02-24-2025 policy cancellation clerk procedure note Was local anesthetic administered? No Refer to assessment note above [facility] Work Phone: 12-16-2024 Note Outreach Team ) [...] date (10 year lookback): Not Found [facility] [employer] [facility] 12-16-2024 Telephone encounter Note Outreach Team ([phone]) Contact Details: I did not contact. Pt [...] Smear date (10 year lookback): Not Found [facility] 12-16-2024 Miscellaneous Notes Outreach Team ([phone]) Contact Details: I did not contact. Pt [...] lookback): Not Found documented in this encounter [facility] 12-02-2024 History of Present illness [...] CT scan of the brain 11/03/23 at [facility] that revealed volume loss, especially [...] or worsening symptoms. documented in this encounter [facility] 05-21-2024 History of Present illness Narrative Subjective [...] CT scan of the brain 11/03/23 at [facility] that revealed volume loss, especially [...] in 6 months documented in this encounter [facility] 02-13-2024 Evaluation + Plan note Diagnostic Tests PendingKeppra Lvl 02/13/24Lamotrigine Level 02/13/24 [facility] 01-11-2024 Telephone encounter Note Jessica from [facility] [phone] is caller. She states was originally told [...] needs at present time. Cris Dinh, RN [facility] 01-11-2024 Miscellaneous Notes Jessica from [facility] [phone] is caller. She states was originally told [...] Cris Dinh, RN documented in this encounter [facility] 12-28-2023 Hospital Discharge instructions Benjamín Guo - 12/28/2023 2:17 PM EDT PERIOPERATIVE DISCHARGE/HOME-GOING INSTRUCTIONS ANESTHESIA - GENERAL (ADULT) If a problem arises, you may contact your physician by calling [phone] and asking for the resident patient transportation driver for Dental service. Special Care Needs: Activity: [...] sent through Care Everywhere.Tooth Extraction Discharge Instructions (Malay)documented in this encounter [facility] 12-28-2023 History and physical note [...] possible Mari Traore DMD [facility]/28[facility]23 10:[facility] 12-28-2023 Note Surgical Attestation : [...] Mari Traore DMD 12/28/2023 10:09 AM [facility] 12-28-2023 History and physical note Surgical [...] 12/28/2023 10:09 AM documented in this encounter [facility] 12-28-2023 Miscellaneous Notes Brief Operative Note [facility]HE OR 3 Johnny Devine 33 year old male Surgical Contact Serial Number: [id number] Preoperative Diagnosis: Pre-op Diagnosis * Caries [K02.9] Moderate intellectual disability [F79] Postoperative Diagnosis: Moderate intellectual disability [F79] Procedures: Comprehensive exam [87593] Full mouth X-ray [ 67876] Extractions [92045] Restorations [09380] Prophy 52040] Fluoride treatment [35640] Surgeon(s): Surgeon(s): Mari Traore DMD Staff: [employer] Nurse: Henrietta Johnson Anesthesia: General Anesthesia Staff: Masters, Selena R., RN HEMODIALYSIS CHARGE-SENIOR EXECUTIVE ASSISTANT Specimen(s): * No specimens in log * [...] disability[F79] @ENCORD@ Surgeon: Dr. Mari Traore DMD Glass Selector Surgeon: Reema Whiting DDS Anesthesia: General- Nasal [...] 4 mg/0.1 mL nasal liquid Use 1 Jachin in one nostril (alternate sides) as needed [...] were discussed with the patient and/or legal signs sales representative. The risks, benefits and alternatives were reviewed. Questions regarding blood transfusions were answered. The patient /or the patient s legal signs sales representative agree with the plan for transfusion of blood and/or blood components. documented in this encounter [facility] 12-28-2023 Surgery Postoperative evaluation and management note Brief Operative Note [facility]HE OR 3 Johnny Devine 33 year old male Surgical Contact Serial Number: [id number] Preoperative Diagnosis: Pre-op Diagnosis * Caries [K02.9] Moderate intellectual disability [F79] Postoperative Diagnosis: Moderate intellectual disability [F79] Procedures: Comprehensive exam [25316] Full mouth X-ray [ 04845] Extractions [75440] Restorations [08111] Prophy 77158] Fluoride treatment [79193] Surgeon(s): Surgeon(s): Mari Traore DMD Staff: [employer] Nurse: Henrietta Johnson Anesthesia: General Anesthesia Staff: [...] by Reema Whiting DDS 12/28/2023 1;48 pm [facility] 12-28-2023 Surgery Surgical operation note Surgical Case Number Data Unavailable Operating Room Data Unavailable Preoperative Diagnosis(es): Pre-op Diagnosis * Caries [K02.9] Moderate intellectual disability [F79] Postoperative Diagnosis(es): Moderate intellectual disability[F79] @ENCORD@ Surgeon: Dr. Mari Traore DMD Glass Selector Surgeon: Reema Whiting DDS Anesthesia: General- Nasal [...] 4 mg/0.1 mL nasal liquid Use 1 Jachin in one nostril (alternate sides) as needed [...] procedure. Reema Whiting DDS 12/28/2023 1:53 pm [facility] 12-28-2023 Progress note Formatting of t his note is different from the original. Blood Attestation: ATTESTATION OF INFORMED CONSENT FOR BLOOD: The transfusion of blood and/or blood components were discussed with the patient and/or legal signs sales representative. The risks, benefits and alternatives were reviewed. Questions regarding blood transfusions were answered. The patient /or the patient s legal signs sales representative agree with the plan for transfusion of blood and/or blood components. [facility] 12-28-2023 History of Present illness Narrative Patient takes his seizure medication with pudding, facility held them today for dental surgery. Caregiver brought capsules with them to pre-op. Per Dr. Saldivar, divalproex 125 mg x 4 capsules (500 mg) were opened and sprinkles given to patient with 50 mL of water in pre-op. 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 MB cusp tip was visualized upon extraction of #17, but well encased in bone and would not be exposed to the oral cavity following healing of the extraction site. Preoperative Diagnosis(es): Pre-op Diagnosis * Caries [K02.9] Moderate intellectual disability [F79] Postoperative Diagnosis(es): Moderate intellectual disability[F79] Surgeon: Dr. Mari Traore DMD Glass Selector Surgeon: Reema Whiting DDS Anesthesia: General- Nasal [...] of surgery: Stable documented in this encounter [facility] 12-21-2023 Evaluation note Addendum 12/21/2023- [...] Kiko VASQUEZ RN updated nursing staff @ [facility]. [facility] 12-21-2023 Miscellaneous Notes Addendum 12/21/2023- Caregiver @ [facility] facility called to relay that patient unable [...] Kiko VASQUEZ RN updated nursing staff @ [facility]. Patient was identified by name and date of . Jaswinderlary Arredondo Patient at risk for falls:No Falls Risk protocol implemented: N/A documented in this encounter [facility] 12-19-2023 Instructions Ling Coffman APRN-[employer] BUTTER FILTER OPERATOR - 12/19/2023 11:26 AM EDT On [...] for pain. Please hold all Vitamin E, Nazareth 3, fish oil and herbal supplements for 1 week prior to surgery. Please use this LIST to prepare for your surgery/procedure: ? Assume that any lab or testing done during your Pre-admission testing appointment is within normal limits unless otherwise contacted. ? Expect a call from [employer] one business day prior to surgery for [...] your Preparing for Your Surgery/Procedure booklet or [email or web address] if you have questions. Contact the Pre-Admission Testing department at [phone] or your surgeon's office with any questions [...] stay with you after surgery. Please call [facility] [employer] if you need transportation assistance or have concerns about going home [phone]. ? SLEEP APNEA PATIENTS: Bring your sleep apnea machine and mask. ? PLEASE BE ON TIME. A late arrival may result in the cancellation/ delay of your surgery. [facility]; it is our pleasure to care for you documented in this encounter [facility] 12-19-2023 Instructions Shanna Sauceda RN - 12/19/2023 11:26 AM EDT [facility] staff: Since patient is unable to take [...] for pain. Please hold all Vitamin E, Nazareth 3, fish oil and herbal supplements for 1 week prior to surgery. Please use this LIST to prepare for your surgery/procedure: ? Assume that any lab or testing done during your Pre-admission testing appointment is within normal limits unless otherwise contacted. ? Expect a call from [employer] one business day prior to surgery for [...] your Preparing for Your Surgery/Procedure booklet or [email or web address] if you have questions. Contact the Pre-Admission Testing department at [phone] or your surgeon's office with any questions [...] stay with you after surgery. Please call [facility] if you need transportation assistance or have concerns about going home [phone]. ? SLEEP APNEA PATIENTS: Bring your sleep apnea machine and mask. ? PLEASE BE ON TIME. A late arrival may result in the cancellation/ delay of your surgery. Thank you for choosing [facility]; it is our pleasure to care for you documented in this encounter [facility] 12-19-2023 Evaluation note Patient was identified by name and date of . Jaswinder Arredondo Patient at risk for falls:No Falls Risk protocol implemented: N/A [facility] 12-19-2023 Miscellaneous Notes Patient was identified by name and date of . Jaswinder Arredondo Patient at risk for falls:No Falls Risk protocol implemented: N/A documented in this encounter [facility] 12-19-2023 History of Present illness Narrative Images from the original note were not included. Pre-Admission Testing Consultation Johnny Devine, [id number] 33 year old Male 12/19/2023 Consult placed to [facility] by Mari Traore, due to significant PMH of Hypothyroidism , Bipolar, Autistic disorder ,Epilepsy [facility] Triage Risk Score Total Score: 3 [...] intervention warranted . Patient with Lamaar from [facility] during this appointment Patient is here for pre-admission optimization and education prior to surgery. RECENT ILLNESS: Serious illness or hospitalization within the last six months. Yes 10/28/2023 HOSPITAL COURSE: Johnny Devine is a 33 year old male with developmental delay and no PSH who presents as a transfer to [facility] from [facility] ED for further management of small bowel obstruction. Given patient's baseline cognitive status, NGT difficult to maintain. He was admitted to the [facility] under care of general surgery and was taken to the OR the following morning for diagnostic laparoscopy. Intra-operative findings demonstrated no adhesins, no apparent hernias, dilated small/large bowel, redundant sigmoid c/f volvulus, easily reduced. After recovering in the PACU, he was taken to the [facility] with NGT in place. Patient arrived to [facility] with 8 Fr pediatric haskins [...] DENTAL RESTORATIONS; Surgeon: Harpreet Mccurdy DDS; Location: [facility]; Service: Dental Past [...] DATA: CBC @ [facility] 11/07/2023 CBC Order: [id number] Component Ref Range & Units 1 mo [...] 0418 141 110 21 91 Comment: The [place] Diabetes Association (ADA) provides guidance for cutoff [...] Standards of Medical Care in Diabetes 2016, [place] Diabetes Association. Diabetes Care. 2016.39(Suppl 1). 8 0.70 8.2 11/06/23 0943 146 112 18 83 Comment: The [place] Diabetes Association (ADA) provides guidance for cutoff [...] Standards of Medical Care in Diabetes 2016, [place] Diabetes Association. Diabetes Care. 2016.39(Suppl 1). 6 0.69 8.9 11/05/23 0418 142 112 23 96 Comment: The [place] Diabetes Association (ADA) provides guidance for cutoff [...] Standards of Medical Care in Diabetes 2016, [place] Diabetes Association. Diabetes Care. 2016.39(Suppl 1). 5 0.64 7.6 11/04/23 0826 145 112 24 79 Comment: The [place] Diabetes Association (ADA) provides guidance for cutoff [...] Standards of Medical Care in Diabetes 2016, [place] Diabetes Association. Diabetes Care. 2016.39(Suppl 1). 4 [...] 1:39 PM 12/19/2023 documented in this encounter [facility] 12-19-2023 History of Present illness Narrative Images from the original note were not included. Pre-Admission Testing Consultation Johnny Devine, [id number] 33 year old Male 12/19/2023 Consult placed to [facility] by Mari Traore, due to significant PMH of Hypothyroidism , Bipolar, Autistic disorder ,Epilepsy [facility] Triage Risk Score Total Score: 3 [...] warranted . Patient with Lamaar from [facility] facility during this appointment Patient is here for pre-admission optimization and education prior to surgery. RECENT ILLNESS: Serious illness or hospitalization within the last six months. Yes 10/28/2023 HOSPITAL COURSE: Johnny Devine is a 33 year old male with developmental delay and no PSH who presents as a transfer to [facility] from [facility] ED for further management of small bowel obstruction. Given patient's baseline cognitive status, NGT difficult to maintain. He was admitted to the [facility] under care of general surgery and was taken to the OR the following morning for diagnostic laparoscopy. Intra-operative findings demonstrated no adhesins, no apparent hernias, dilated small/large bowel, redundant sigmoid c/f volvulus, easily reduced. After recovering in the PACU, he was taken to the [facility] with NGT in place. Patient arrived to [facility] with 8 Fr pediatric haskins [...] DENTAL RESTORATIONS; Surgeon: Harpreet Mccurdy DDS; Location: [facility]; Service: Dental Past [...] DATA: CBC @ [facility] 11/07/2023 CBC Order: [id number] Component Ref Range & Units 1 mo [...] 0418 141 110 21 91 Comment: The [place] Diabetes Association (ADA) provides guidance for cutoff [...] Standards of Medical Care in Diabetes 2016, [place] Diabetes Association. Diabetes Care. 2016.39(Suppl 1). 8 0.70 8.2 11/06/23 0943 146 112 18 83 Comment: The [place] Diabetes Association (ADA) provides guidance for cutoff [...] Standards of Medical Care in Diabetes 2016, [place] Diabetes Association. Diabetes Care. 2016.39(Suppl 1). 6 0.69 8.9 11/05/23 0418 142 112 23 96 Comment: The [place] Diabetes Association (ADA) provides guidance for cutoff [...] Standards of Medical Care in Diabetes 2016, [place] Diabetes Association. Diabetes Care. 2016.39(Suppl 1). 5 0.64 7.6 11/04/23 0826 145 112 24 79 Comment: The [place] Diabetes Association (ADA) provides guidance for cutoff [...] Standards of Medical Care in Diabetes 2016, [place] Diabetes Association. Diabetes Care. 2016.39(Suppl 1). 4 [...] 1:39 PM 12/19/2023 documented in this encounter [facility] 12-19-2023 Note Pre-Admission Testin g Consultation Johnny Devine, [id number] 33 year old Male 12/19/2023 Consult placed [...] warranted . Patient with Lamaar from [facility] facility during this appointment Patient is here for pre-admission optimization and education prior to surgery. RECENT ILLNESS: Serious illness or hospitalization within the last six months. Yes 10/28/2023 HOSPITAL COURSE: Johnny Devine is a 33 year old male with developmental delay and no PSH who presents as a transfer to [facility] from [facility] ED for further management of small bowel obstruction. Given patient's baseline cognitive status, NGT difficult to maintain. He was admitted to the [facility] under care of general surgery and was taken to the OR the following morning for diagnostic laparoscopy. Intra-operative findings demonstrated no adhesins, no apparent hernias, dilated small/large bowel, redundant sigmoid c/f volvulus, easily reduced. After recovering in the PACU, he was taken to the [facility] with NGT in place. Patient arrived to [facility] with 8 Fr pediatric haskins [...] SERVICES; Ser (more content not included)... [facility] [facility] 12-03-2023 Note HNO ID: [id number] Author: OSCAR RUIZ MD Service: ? Author [...] from ongoing urologic care. Oscar Ruiz MD [facility] 12-03-2023 Note Patient Outreach (UR OLMN) JOHNNY DEVINE ([id number]) 1990 M Date Time Provider Department 12/03/23 RAFAEL GIRALDO During your visit today, we recorded the following information about you: Allergies As of Date: 12/03/2023 Noted Allergy Reaction BIAXIN (CLARITHROMYCIN) 05/04/2022 14 - Other: See Comments Comments: caregiver does not know Date Reviewed: 12/03/2023 Reviewed by: Sukhdeep Barton OCCA - Fully Assessed Visit Diagnosis:Screening for genitourinary condition [Z13.89] Order(s):URINALYSIS, REFLEX MICROSCOPIC [UVT8676] Order #: [id number] Prescriptions as of 12/06/2023 - cloNIDine HCl [...] Resolved SBO (small bowel obstruction) ([facility]) [K56.609] 10/28/2023 10/31/2023 Bipolar disorder (HCC) [F31.9] 09/16/2018 Hypothyroidism [E03.9] 09/16/2018 Obsessive-compulsive disorder [F42.9] 09/16/2018 Moderate intellectual disability [F71] 09/16/2018 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 Author Type: Nurse Practitioner Type: Progress Notes Filed: 11/28/2023 10:19 Note Text: [facility] Clinic Date: November 28, 2023 Johnny Devine 33 year old male CHIEF COMPLAINT: Patient presents for follow up from surgery. HPI: Here for follow up after diagnostic laparotomy on 10/29/[address] Robin. Patient also underwent a dorsal slit procedure with urology on 10/30/2023 for paraphimosis. Patient with a fork repairer today to discuss his postoperative course since [...] for further surgery discussion Victoria Sanchez, MSN, RN HEMODIALYSIS CHARGE-[employer] BUTTER FILTER OPERATOR November 28, 2023 [facility] 11-28-2023 History of Present illness Narrative [facility] Clinic Date: November 28, 2023 Johnny Devine 33 year old male CHIEF COMPLAINT: Patient presents for follow up from surgery. HPI: Here for follow up after diagnostic laparotomy on 10/29/[address] Robin. Patient also underwent a dorsal slit procedure with urology on 10/30/2023 for paraphimosis. Patient with a fork repairer today to discuss his postoperative course since [...] for further surgery discussion Victoria Sanchez, MSN, RN HEMODIALYSIS CHARGE-COCOA BUTTER FILTER OPERATOR November 28, 2023 documented in this encounter [facility] 11-28-2023 Nurse Note What is the reason for your visit today? Post op Who is your referring physician? Dr. Sanchez Are you having poor oral intake? NO Have you had unintentional weight loss of 15 lbs/7 Kg in the last 3-6 months? NO Bowels: regular Wound: clean & dry Temperature: No Drains: No documented in this encounter [facility] 11-12-2023 Miscellaneous Notes Called care [...] Cris Dinh, MIRIAM documented in this encounter [facility] 11-07-2023 Note HNO ID: [id number] Author: HERMAN SALOMON, RN Service: Care Management Author Type: Registered Nurse Type: Care Mgt Progress Note Filed: 11/07/2023 14:56 Note Text: CARE MANAGEMENT DISCHARGE NOTE SERVICE DATE: November 07, 2023 SERVICE TIME: 2:56 PM Admission Date: 10/28/2023 LOS: 10 days Discharge Arrangement Discharge Arrangement: [facility] Services Arranged Medical Services: Other: See Comment (no services indicated) Caregiver Assessment Caregiver is ready, willing and able to meet the patient's needs as recommended by the inter-professional team: Yes Name of Caregiver: Kristofer Pillai Transportation Arrangements Transportation Arrangements: Car Destination: [facility] Additional Information: Patient d/c ready to [facility] with no skilled needs identified. Patient and bedside RN aware of plan. halfway to transport patient home via private auto. SIGNATURE: Herman Salomon RN PATIENT NAME: Johnny Devine DATE: November 07, 2023 TIME: 2:55 PM CONTACT #: [phone] [facility] 11-07-2023 Note HNO ID: [id number] Author: GIA MULLER MD Service: General Surgery [...] * DORSAL SLIT FORESKIN EXCEPT - General [facility] 11-07-2023 Note HNO ID: [id number] Author: MAYANK READ, RN Service: Nursing Author Type: Registered Nurse Type: Nursing Progress Note Filed: 11/07/2023 09:25 Note Text: Paged primary team of low BP. [facility] 11-06-2023 Note HNO ID: [id number] Author: ALEXANDRA CHAIREZ MD Service: General Surgery [...] Chairez MD General Surgery Resident Екатерина(Jacob No): [id number] Grundfest(Boy Alcaraz Petro): [phone] After 6PM + Weekends: [phone] INTERVAL EVENTS / PERTINENT REVIEW OF SYSTEMS: [...] * DORSAL SLIT FORESKIN EXCEPT - General [facility] 11-06-2023 Note HNO ID: [id number] Author: BERNARDA SUE MD Service: Neurology General [...] DATE: November 06, 2023 TIME: 12:26 AM [facility] 11-05-2023 Note HNO ID: [id number] Author: LEEANN TELLES MD Service: General Surgery [...] as appropriate, non-distended Leeann Telles MD PGY1 [facility] 11-05-2023 Note HNO ID: [id number] Author: JUAQUIN KRISHNAMURTHY RN Service: Nursing Author [...] to bedside, Valium ordered at this time. [facility] 11-05-2023 Note HNO ID: [id number] Author: HERMAN SALOMON RN Service: Care Management Author Type: Registered Nurse Type: Care Mgt Progress Note Filed: 11/05/2023 11:21 Note Text: CARE MANAGEMENT PROGRESS NOTE SERVICE DATE: 11/05/2023 SERVICE TIME: 11:20 AM LOS: 8 days [place] of Choice Explained: [place] of Choice Given: No Reason Not Given: No placements necessary Anticipated # of Days Until Discharge: 4 Needs Prior to Discharge: Needs Prior to Discharge: To Be Determined Post-Acute Discharge Plan: Patient from [facility]. Plan is to return at discharge. floating labor gang supervisor is Magi [phone]. Per Magi, she will provide transport at discharge. Magi is requesting an abdominal binder at discharge due to patient's history of self-injurious behavior. 33 year old male POD #7 diagnostic laparoscopy. Patient is non-verbal, developmental delay and lives in long-term. No skilled needs anticipated. SIGNATURE: Herman Salomon RN PATIENT NAME: Johnny Devine DATE: November 05, 2023 TIME: 11:19 AM PAGER/CONTACT #: [phone] [facility] 11-05-2023 Note HNO ID: [id number] Author: CONNIE CAICEDO MD Service: Neurology General [...] Dr. Almanzar. Connie Caicedo MD 5:49 PM [facility] 11-05-2023 Note HNO ID: [id number] Author: ALEXANDRA CHAIREZ MD Service: General Surgery [...] back to facility when cleared by neurology Alexandar Chairez MD General Surgery Resident Екатерина(Jacob No): [id number] Grundfest(Kieran, Boy, Misti): [phone] After 6PM + Weekends: [phone] INTERVAL EVENTS / PERTINENT REVIEW OF SYSTEMS: [...] * DORSAL SLIT FORESKIN EXCEPT - General [facility] 11-04-2023 Note HNO ID: [id number] Author: ALEXANDRA CHAIREZ MD Service: General Surgery [...] Neuro: continue lorazepam TID per neurology(clarified with [facility] and patient has been [...] Chairez MD General Surgery Resident Екатерина(Jacob No): [id number] Grundfest(Kieran BoyMisti): [phone] After 6PM + Weekends: [phone] INTERVAL EVENTS / PERTINENT REVIEW OF SYSTEMS: [...] * DORSAL SLIT FORESKIN EXCEPT - General [facility] 11-03-2023 Note HNO ID: [id number] Author: ZAIRA ROBERT MD Service: General Surgery [...] (Res) November 03, 2023, 10:29 AM P: [phone] INTERVAL EVENTS / PERTINENT REVIEW OF SYSTEMS: [...] * DORSAL SLIT FORESKIN EXCEPT - General [facility] 11-03-2023 Note HNO ID: [id number] Author: LYLE TRINIDAD RN Service: ? Author Type: Registered Nurse Type: Progress Notes Filed: 11/03/2023 22:32 Note Text: This racebook writer was called by another nurse that pt had a witnessed 20 seconds of seizure episode. AMET called and team notified and orders given. [facility] 11-02-2023 Note HNO ID: [id number] Author: LEEANN TELLES MD Service: General Surgery [...] as appropriate, non-distended Leeann Telles MD PGY1 [facility] 11-02-2023 Note HNO ID: [id number] Author: HERMAN SALOMON RN Service: Care Management Author Type: Registered Nurse Type: Care Mgt Progress Note Filed: 11/02/2023 11:43 Note Text: CARE MANAGEMENT WEEKEND PLANNING NOTE DISCHARGE OR POSSIBLE DISCHARGE Date/Time: TBD Disposition: [facility] Transport: Car /Magi Other Concerns: Patient from [facility]. Plan is to return at discharge. floating labor gang supervisor is Magi [phone]. Per Magi, she will provide transport at discharge. She will need to be contacted if patient ready to discharge over the weekend. Magi is requesting an abdominal binder at discharge due to patient's history of self-injurious behavior. 33 year old male POD #4 diagnostic laparoscopy. Patient is non-verbal, developmental delay and lives in long-term. Weekend Pourer Pager #: Please see Treatment Team for Care Management Weekend/Holiday coverage. SIGNATURE: Herman Salomon RN PATIENT NAME: Johnny Devine DATE: November 02, 2023 TIME: 11:42 AM PAGER/CONTACT #: [phone] [facility] 11-02-2023 Note HNO ID: [id number] Author: FRANCK MAGDALENO MD Service: General Surgery [...] Andrews MD Acute Care Surgery Resident PAGER [phone] INTERVAL EVENTS / PERTINENT REVIEW OF SYSTEMS: [...] * DORSAL SLIT FORESKIN EXCEPT - General [facility] 11-01-2023 Note HNO ID: [id number] Author: ANA LUISA FARR MD Service: General [...] Farr MD Acute Care Surgery Resident PAGER [phone] INTERVAL EVENTS / PERTINENT REVIEW OF SYSTEMS: [...] * DORSAL SLIT FORESKIN EXCEPT - General [facility] 10-31-2023 Note HNO ID: [id number] Author: ANA LUISA FARR MD Service: General [...] Farr MD Acute Care Surgery Resident PAGER [phone] INTERVAL EVENTS / PERTINENT REVIEW OF SYSTEMS: [...] Drain Duration Indwelling Urinary Catheter 10/30/23 0811 [facility] [place] 10 Fr 1 day SURGERY/PROCEDURE: Procedure(s) and Anesthesia Type: * DORSAL SLIT FORESKIN EXCEPT - General [facility] 10-31-2023 Note HNO ID: [id number] Author: HEAVEN CAMACHO MD Service: Urology Author [...] clinical indicators: x Hypophosphatemia Other, please specify [facility] 10-31-2023 Note HNO ID: [id number] Author: BEATRIZ MEHTA MD Service: General Surgery [...] Mehta MD General Surgery Resident General Surgery: [id number] On nights (6 pm to 6 am) and on Weekends/Holidays, please page the on-call pager: [phone] 10/31/23 2:39 AM [facility] 10-31-2023 Note HNO ID: [id number] Author: JUAQUIN KRISHNAMURTHY RN Service: Nursing Author Type: Registered Nurse Type: Progress Notes Filed: 10/31/2023 01:48 Note Text: Messaged Night team Dr. Mehta about haskins drainage turning bloody. Patient is asleep and comfortable [facility] 10-30-2023 Note HNO ID: [id number] Author: JEREMIE JOAQUIN MD Service: ? Author [...] October 30, 2023 TIME: 8:11 AM CSN: [id number] [facility] 10-30-2023 Note HNO ID: [id number] Author: JEREMIE JOAQUIN MD Service: ? Author Type: Anesthesiologist Type: Anesthesia Procedure Notes Filed: 10/30/2023 11:59 Note Text: ANESTHESIOLOGY PROCEDURE NOTE Airway General Information Procedure Start Time/Medication Administration: 10/30/2023 7:46 AM Patient location during procedure: OR Timeout Performed Pre-procedure: timeout performed Consent Obtained: Yes Patient identity confirmed: arm band, care steam shovel operating engineer and patient Staffing Anesthesiologist: Jeremie Joaquin MD Performed by: SRNA and anesthesiologist Indications and Patient Condition Indications for airway management: anesthesia Preoxygenated: yes anesthesia circuit Patient position: sniffing Method: rapid sequence Cricoid Pressure: No Manual In-Line Stabilization: No Difficult Mask: No Final Airway Details Final airway type: endotracheal airway Final Endotracheal Airway: ETT Cuffed: yes Successful intubation technique: video laryngoscopy Devices used: DutyCalculator Endotracheal tube insertion site: oral Blade size: [...] October 30, 2023 TIME: 7:58 AM CSN: [id number] [facility] 10-30-2023 Note HNO ID: [id number] Author: FRANCK MAGDALENO MD Service: General Surgery [...] Andrews MD Acute Care Surgery Resident PAGER [phone] INTERVAL EVENTS / PERTINENT REVIEW OF SYSTEMS: [...] <1 day Indwelling Urinary Catheter 10/30/23 0130 [facility] [place] 8 Fr <1 day SURGERY/PROCEDURE: Procedure(s) and Anesthesia Type: * DORSAL SLIT FORESKIN EXCEPT - General [facility] 10-29-2023 Note HNO ID: [id number] Author: HERMAN SALOMON RN Service: Care Management [...] by: Per Department Practice Potential Transition Plans [facility]/Supervised Living Advance Directives Current Advance Directive: Other Document: See Comment (Legal guardian) In Chart: Yes Up To Date and Valid: Yes Current Living Arrangements and Support Lives with: Other person(s) [facility] Type of Residence: [facility] Care Facility Name: [facility] Support: Home care staff, Family members How do you manage to accomplish the following: Independent: Ambulation Dependent: Bathe/Shower;Dress;Meals/Meal Prep;Going to the bathroom;Medication Management;Transportation to appointments/community Current Services/Equipment Current Post-Acute Service(s): None [place] of Choice Explained: [place] of Choice Given: No Reason Not Given: No placements necessary Are you interested in bedside delivery of your medications? No Discharge Planning Participant(s): Other person(s);Guardian Name/Relationship: Magi/Sensor Specialist Patient/Family Comments: Caregiver Assessment: Caregiver is ready, willing and able to meet the patient's needs as recommended by the inter-professional team: Yes Name of Caregiver: [facility] Transport at Discharge: Transportation Arrangements: Car Destination: Home Needs Prior to Discharge: Needs Prior to Discharge: To Be Determined Post-Acute Discharge Plan: 33 year old male POD #0 diagnostic laparoscopy. Patient is non-verbal, developmental delay and lives in long-term. CM met with patient's legal guardian Delbert and group controller Magi at bedside. Plan is to return to long-term at discharge. Per Magi [phone] ext. [phone], she will provide transport. Magi is requesting an abdominal binder at discharge due to patient's history of self-injurious behavior. CM will continue to follow for transitional care needs. SIGNATURE: Herman Salomon RN PATIENT NAME: Johnny Devine DATE: October 29, 2023 TIME: 4:00 PM CONTACT #: [phone] [facility] 10-29-2023 Note HNO ID: [id number] Author: KENZIE MORE APRN.SENIOR EXECUTIVE ASSISTANT Service: ? Author Type: Nurse Editor Managing Director Type: Anesthesia Procedure Notes Filed: 10/29/2023 10:18 Note Text: ANESTHESIOLOGY PROCEDURE NOTE Airway General Information Procedure Start Time/Medication Administration: 10/29/2023 10:00 AM Patient location during procedure: OR Timeout Performed Pre-procedure: timeout performed Consent Obtained: Yes Patient identity confirmed: arm band, care steam shovel operating engineer and family Staffing SENIOR EXECUTIVE ASSISTANT: Kenzie More APRN.SENIOR EXECUTIVE ASSISTANT Indications and Patient Condition Indications for airway management: anesthesia Preoxygenated: yes anesthesia circuit Method: rapid sequence Difficult Mask: No Final Airway Details Final airway type: endotracheal airway Final Endotracheal Airway: ETT Cuffed: yes Successful intubation technique: video laryngoscopy Devices used: DutyCalculator Endotracheal tube insertion site: oral Blade: Raj Blade size: #4 ETT size (mm): 7.5 Placement verified by: capnometry Cormack-Lehane Classification: grade I - full view of glottis Number of attempts at approach: 1 Failed airway: no Unrecognized esophageal intubation: no Airway not difficult SIGNATURE: Kenzie More APRN.CRNA PATIENT NAME: Johnny Devine DATE: October 29, 2023 TIME: 10:17 AM CSN: [id number] [facility] 10-29-2023 Note HNO ID: [id number] Author: ANA LUISA FARR MD Service: General [...] Farr MD Acute Care Surgery Resident PAGER [phone] INTERVAL EVENTS / PERTINENT REVIEW OF SYSTEMS: [...] Anesthesia Type: * EXPLORATORY LAPAROTOMY - General [facility] 10-28-2023 History of Past i llness Narrative Problem Noted Date Diagnosed Date Resolved Date SBO (small bowel obstruction) 10/28/2023 10/31/2023 documented as of this encounter (statuses as of 11/12/2023) [facility]03[facility]10[facility] History of Past illness Narrative* Problem Noted Date Diagnosed Date Resolved Date SBO (small bowel obstruction) 10/28/2023 10/31/2023 documented as of this encounter (statuses as of 11/29/2023) [facility] History of Past illness Narrative* Problem Noted Date Diagnosed Date Resolved Date SBO (small bowel obstruction) 10/28/2023 10/31/2023 documented as of this encounter (statuses as of 12/04/2023) [facility] History of Past illness Narrative* Problem Noted Date Diagnosed Date Resolved Date SBO (small bowel obstruction) 10/28/2023 10/31/2023 documented as of this encounter (statuses as of 12/06/2023) [facility]11-27-2023 Hospital Discharge instructions* Discharge Instructions* [...] be sent through Care Everywhere. * Bradycardia (Malay) documented in this [id number] Emergency department Note* Leila Cifuentes RN - 07/16/2023 8:01 AM EST Permission treat given from Cate legal guardian [id number] Emergency department Note* Leila Cifuentes RN - 07/16/2023 8:01 AM EST Permission treat given from Cate legal guardian documented in this [id number] Evaluation + Plan note Diagnostic Tests Pending * [place] Level 07/04/23 [facility]11-07-2023 Telephone encounter Note* Telephone Encounter - Shanna Sauceda RN - 06/26/2023 11:14 AM EST Informed Consent for dental surgery & Anesthesia consent obtained and scanned into [facility]. Scheduled for surgery 07/16/2023. [id number] Miscellaneous Notes* Telephone Encounter - Shanna Sauceda RN - 06/26/2023 11:14 AM EST Informed Consent for dental surgery & Anesthesia consent obtained and scanned into Masher. Scheduled for surgery 07/16/2023. documented in this [id number] Evaluation note* PSE Appt H&P - Lacey Wilson MD - 06/22/2023 3:10 PM EDT Presurgical Evaluation (Pre-Admission Testing) Consultation Johnny Devine, [id number] 32 year old Male 06/22/2023 Consult placed [...] DENTAL RESTORATIONS; Surgeon: Harpreet Mccurdy DDS; Location: [facility] Surgery Center; Service: Dental ANESTHESIA [...] referring and communicating with other health career guidance technician (when not separately reported) - documenting clinical information in the electronic or other health record - independently interpreting results (not separately reported) and communicating results to the patient/family/caregiver - care coordination (not separately reported). Interviewer signature: Lacey Wilson MD 3:10 PM 06/22/2023 [id number] Miscellaneous Notes* PSE Appt H&P - Lacey Wilson MD - 06/22/2023 3:10 PM EDT Presurgical Evaluation (Pre-Admission Testing) Consultation Johnny Devine, [id number] 32 year old Male 06/22/2023 Consult placed [...] DENTAL RESTORATIONS; Surgeon: Harpreet Mccurdy DDS; Location: [facility] Surgery [place]; Service: Dental ANESTHESIA REVIEW OF SYSTEMS: Eyes/ENT: [...] referring and communicating with other health career guidance technician (when not separately reported) - documenting clinical information in the electronic or other health record - independently interpreting results (not separately reported) and communicating results to the patient/family/caregiver - care coordination (not separately reported). Interviewer signature: Lacey Wilson MD 3:10 PM 06/22/2023 documented in this [id number] Miscellaneous Notes* Telephone Encounter - Lory Dan [facility] - 05/18/2022 3:18 PM EDT Cate, aunt, was leaving Dr Morales a message: At this time, the family would like to hold off on cataract surgery. Fyi * Telephone Encounter - Grupo Morales MD - 05/18/2022 2:23 PM EDT Called today and yesterday after clinic to discuss. No answer, left msg to call back and leave a message. * Telephone Encounter - Spritzner [employer] - 05/17/2022 3:31 PM EDT Pt's aunt returning a call to Dr. Morales to discuss eye care for Johnny. Please try to reach her again at [phone] (Cate Tin) [facility] Miscellaneous Notes* Telephone Encounter - [place] - 05/08/2022 9:01 AM EDT Nurse from [facility] where he resides called for [facility] for his file. Attn: Melanie Pickard [phone]. Surgery schedulers name and # was provided. documented in this encounter[facility]-2022 Miscellaneous Notes* Telephone Encounter - [...] week. Grupo Morales MD documented in this encounter[facility] History of Present illness Narrative* [...] 04, 2022 10:56 AM documented in this encounterCos[facility]22 Telephone encounter Note * Telephone Encounter - Jose Miguel Jones - 03/29/2022 1:12 PM EDT Care Gaps Scheduling Contact Details: I did not contact pt. Encounter 07/15/21 indicates pt does not see providers at [facility] at this time. Health Maintenance Due: Medicare AWV / PCP Visit: Due Eye Exam: Not due Foot Exam: Not due Annual Blood Work: Due Mammogram: N/A FIT: Not due [id number] Miscellaneous Notes* Telephone Encounter - Jose Miguel Jones - 03/29/2022 1:12 PM EDT Care Gaps Scheduling Contact Details: I did not contact pt. Encounter 07/15/21 indicates pt does not see providers at [facility] at this time. 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 Other and combined forms of senile cataract [facility] Diagnosis Caries- Primary Unspecified [...] aftercare following surgery [facility] Phimosis- Primary Redundant prepuce and phimosis [facility]* Diagnosis Screening for genitourinary condition Screening for other and unspecified genitourinary condition [facility]* Diagnosis Caries- Primary Unspecified dental caries Pre-op testing- Primary Preoperative examination, unspecified Body mass index (BMI) 31.0-31.9, adult Caries Unspecified dental caries [facility] Diagnosis Sigmoid volvulus (HCC)- Primary Volvulus [facility]* Diagnosis Caries- Primary Unspecified dental [...] dental caries documented in this [facility] Work Phone: Evaluation note* Diagnosis Alteration of awareness- Primary [facility] Diagnosis Encounter for dental examination- Primary Dental examination documented in this encounter [facility] Dentistry Work Phone: Hospital course Narrative No data available for this section [facility] No data available for this section [facility] No data available for this section [facility] Summary Purpose Family History No [...] mcfadden Referred To Contact Anesthesiology Diagnoses Caries iTo-Harpreet England, DDS [address] [place] [id number] [facility] PRE SURGICAL EVAL [address] [place] [address] Referral ID Status Reason Start Date Expiration Date V isits Requested Visits Authorized [id number] Pending Review 05/25/2023 05/25/2024 1 1 Scheduling Instructions Your surgical team will reach out to you to schedule a preadmission testing appointment. Question Answer Reason for consult? Recommended PSE Risk Score Specialty Diagnoses / Procedures Referred By Johan mcfadden Referred To Contact Radiology Diagnoses Pre-op exam Procedures XR CHEST PA+LAT 2 VIEWS Franc Beyer MD [address] [place] [address] [facility] DIAGNOSTIC RADIOLOGY [address] [phone] Referral ID Status Reason Start Date Expiration Date Visits Re quested Visits Authorized [id number] Closed 06/22/2023 06/21/2024 1 1 Specialty Diagnoses / Procedures Referred By Contac t Referred To Contact Cardiology Diagnoses Bradycardia History of autism Nonverbal Moderate intellectual disability Yobany Smith PA-C [address] [place] [address] S CARDIOLOGY [facility] [address] [place] [address] Referral ID Status Reason Start Date Expiration Date V isits Requested Visits Authorized [id number] Pending Review 07/16/2023 07/16/2024 3 3 Scheduling Instructions Please call the [facility] at [phone] to schedule an appointment if one was [...] (HCC) Procedures CONSULT TO COLO-RECTAL SURGERY OFFICE/OUTPATIENT [facility] 60 MINUTES Victoria Sanchez APRN.[facility] [address] [phone] Juventino Fairbanks MD [address] [place] [address] Referral ID Status Reason Start Date Expiration Date Visits Requested Visits Authorized [id number] Authorized PCP Requested Referral 12/20/2023 12/19/2024 1 1 Specialty Diagnoses / Procedures Referred By Contac t Referred To Contact Anesthesiology Diagnoses Caries Harpreet Mccurdy DDS [address] [place] [phone] [facility] PRE ADMISSION TESTING [address] [place] [address] Referral ID Status Reason Start Date Expiration Date V isits Requested Visits Authorized [id number] Authorized 10/10/2023 10/10/2024 1 1 Scheduling Instructions [...] PA+LAT 2 VIEWS Franc Beyer MD [address] [place] [address] [facility] DIAGNOSTIC RADIOLOGY [address] [place] [address] Referral ID Status Reason Start Date Expiration Date Visits Re quested Visits Authorized [id number] Closed 06/22/2023 06/21/2024 1 1 Reason Onset Date Comments Pre-surgical Evaluation 06/26/2023 Informed Consent for dental surgery & Anesthesia consent obtained Reason Comments bradycardia Low HR (33) Specialty Diagnoses / Procedures Referred By Contmigdalia t Referred To Contact Ambulatory Surgery Diagnoses Caries Caries [[email or web address]] Procedures UNLISTED PROCEDURE, DENTOALVEOLAR STRUCTURES ANESTHESIA, INTRAORAL PROC, W/BX; NOS DENTAL RESTORATIONS Harpreet Mccurdy, DDS [address] [place] [address] [facility] [address] [place] [address] Phone: [phone] Referral ID Status Reason Start Date Expiration Date Visits Re quested Visits Authorized [id number] 3 3 Reason Comments Web Operations Administrator - Other Reason Comments Post Op Reason Onset Date Comments Pre-surgical Evaluation 12/25/2023 DD adult dental restorations 12/27 under [place] at [place]. PAT completed - consent request sent to main - see future encounter for results. PAT RN spoke to patrick Navarro, [place] address, and 0900 arrival time Reason Onset Date Comments Pre-surgical Evaluation 12/25/2023 Anesthes ia Attestaion for dental surgery scanned in multimedia journalistgrocery department manager Diagnoses / Procedures Referred By Contac t Referred To Contact Ambulatory Surgery Diagnoses Caries Caries [[email or web address]] Procedures UNLISTED PROCEDURE, DENTOALVEOLAR STRUCTURES ANESTHESIA, INTRAORAL PROC, W/BX; NOS DENTAL RESTORATIONS Kassidy Mari, DMD [address] [place] [address] [address] [facility] [address] [place] [id number] Phone: [phone] Referral ID Status Reason Start Date Expiration Date Visits Re quested Visits Authorized [id number] 3 3 Reason Comments Seizures Reason Onset Date Comments Medical Record Review 12/16/2024 Reason Comments New Patient Care Teams (unrecognized sec tion and content) Floor Manager Relationship Specialty Start Date End Date Aileen Corcoran DDS [address] [place], [place] [phone] Resident Dentistry 08/20/20 Floor Manager Relationship Specialty Start Date End Date Aileen Corcoran DDS [address] [place] [address] Resident Dentistry 08/20/20 Floor Manager Relationship Specialty Start Date End Date Aileen Corcoran DDS [address] [place], [place] [phone] Resident Dentistry 08/20/20 Floor Manager Relationship Specialty Start Date End Date Aileen Corcoran DDS [address] [place], [place] [phone] Resident Dentistry 08/20/20 Floor Manager Relationship Specialty Start Date End Date Aileen Corcoran DDS [address] [place] [address] Resident Dentistry 08/20/20 Floor Manager Relationship Specialty Start Date End Date Aileen Corcoran DDS [address] [place] [address] Resident Dentistry 08/20/20 Floor Manager Relationship Specialty Start Date End Date Aileen Corcoran DDS [address] [place] [address] Resident Dentistry 08/20/20 Floor Manager Relationship Specialty Start Date End Date RosemarieAileen aquino DDS [address] [place] [address] Resident Dentistry 08/20/20 Floor Manager Relationship Specialty Start Date End Date Aileen Corcoran DDS [address] [place] [address] Resident Dentistry 08/20/20 Floor Manager Relationship Specialty Start Date End Date Aileen Corcoran DDS [address] [place] [address] Resident Dentistry 08/20/20 Floor Manager Relationship Specialty Start Date End Date Aileen Corcoran DDS [address] [place] [address] Resident Dentistry 08/20/20 Floor Manager Relationship Specialty Start Date End Date RosemarieAileen aquino DDS [address] [place] [address] Resident Dentistry 08/20/20 Floor Manager Relationship Specialty Start Date End Date RosemarieAileen aquino DDS [address] [place] [address] Resident Dentistry 08/20/20 Ling Coffman APRN-COCOA BUTTER FILTER OPERATOR [address] [place] [phone] ELECTRO MECHANICAL TECHNICIAN Anesthesiology 01/19/24 Floor Manager Relationship Specialty Start Date End Date Aileen Corcoran DDS [address] [place] [address] Resident Dentistry 08/20/20 Ling CoffmanSAMEER [address] [place] [phone] ELECTRO MECHANICAL TECHNICIAN Anesthesiology 01/19/24 Source Comments (unrecognize d section and content) In the event this informatio n is protected by the Federal Confidentiality of Alcohol and Drug Abuse Patient Records regulations: The Federal rules restrict any use of the information to criminally investigate or prosecute any alcohol or drug abuse patient.[facility] the event this information is protected by the Federal Confidentiality of Alcohol and Drug Abuse Patient Records regulations: The Federal rules restrict any use of the information to criminally investigate or prosecute any alcohol or drug abuse patient.[facility] CenterIn the event this information is protected by the Federal Confidentiality of Alcohol and Drug Abuse Patient Records regulations: The Federal rules restrict any use of the information to criminally investigate or prosecute any alcohol or drug abuse patient.[facility] Center[facility] the event this information is protected by the Federal Confidentiality of Alcohol and Drug Abuse Patient Records regulations: The Federal rules restrict any use of the information to criminally investigate or prosecute any alcohol or drug abuse patient.[facility] CenterIn the event this information is protected by the Federal Confidentiality of Alcohol and Drug Abuse Patient Records regulations: The Federal rules restrict any use of the information to criminally investigate or prosecute any alcohol or drug abuse patient.[facility] CenterIn the event this information is protected by the Federal Confidentiality of Alcohol and Drug Abuse Patient Records regulations: The Federal rules restrict any use of the information to criminally investigate or prosecute any alcohol or drug abuse patient.[facility] CenterIn the event this information is protected by the Federal Confidentiality of Alcohol and Drug Abuse Patient Records regulations: The Federal rules restrict any use of the information to criminally investigate or prosecute any alcohol or drug abuse patient.[facility] CenterIn the event this information is protected by the Federal Confidentiality of Alcohol and Drug Abuse Patient Records regulations: The Federal rules restrict any use of the information to criminally investigate or prosecute any alcohol or drug abuse patient.[facility] CenterIn the event this information is protected by the Federal Confidentiality of Alcohol and Drug Abuse Patient Records regulations: The Federal rules restrict any use of the information to criminally investigate or prosecute any alcohol or drug abuse patient.[facility] CenterIn the event this information is protected by the Federal Confidentiality of Alcohol and Drug Abuse Patient Records regulations: The Federal rules restrict any use of the information to criminally investigate or prosecute any alcohol or drug abuse patient.[facility] (unrecognized sect ion and content) No Status Records FoundNo Status Records FoundNo Status Records FoundNo Status Records FoundNo Status Records FoundNo Status Records Found INFORMATION SOURCE (unrecogn ized section and content) DATE CREATED AUTHOR [facility]/26/2023 [facility] DATE CREATED AUTHOR AUTHOR'S ORGANIZ ATION 01/13/2024 [facility] DATE CREATED AUTHOR AUTHOR'S ORGANIZ ATION 02/15/2024 [facility] DATE CREATED AUTHOR AUTHOR'S ORGANIZ ATION 02/22/2024 [facility] DATE CREATED AUTHOR AUTHOR'S ORGANIZ ATION 12/04/2024 [facility] DATE CREATED AUTHOR AUTHOR'S ORGANIZ ATION 12/17/2024 [facility] [employer] [facility] Scheduled Active and Recently Administ ered [...] socket sites after extraction) lidocaine-epinephrine (XYLOCAINE) 2 %-1:227695 injection (CANCELED) PRN, Starting on Sun12/28/23 at [...] BE BASED ON THE PRIMARY CLINICAL RECORDS. [employer] provides no warranty or guarantee of the accuracy or completeness of information in this document.
[2025-05-28 07:27] LABS: Hematocrit 39.3 % (42.0-54.0); Hemoglobin 12.2 g/dL (14.0-18.0); Immature Granulocytes Abs Auto 0.06 10^3/uL (0.00-0.03); Immature Granulocytes Pct Auto 0.7 % (0.0-0.5); Lymphocytes Absolute Auto 2.1 10^3/uL (1.2-3.8); Mean Corpuscular HGB Conc 31.0 g/dL (29.9-35.2); Mean Corpuscular Hemoglobin 27.4 pg (25.9-34.0); Mean Corpuscular Volume 88.3 fL (80.0-94.0); Platelet Count 154 10^3/uL (150-450); Red Blood Count 4.45 10^6/uL (4.70-6.10); White Blood Count 8.3 10^3/uL (4.0-11.0)
[2025-05-28 07:55] LABS: Alanine Aminotransferase 19 U/L (16-63); Albumin Globulin Ratio 0.7; Albumin Level 3.2 g/dL (3.4-5.0); Alkaline Phosphatase 70 U/L (46-116); Anion Gap 13.3; Aspartate Amino Transferase 15 U/L (15-37); Blood Urea Nitrogen 15.0 mg/dL (7.0-18.0); Calcium 9.7 mg/dL (8.5-10.1); Carbon Dioxide 27.0 mmol/L (21.0-32.0); Chloride 109 mmol/L (98-107); Cholesterol 127 mg/dL (<=200); Estimated GFR (African America >60 (>=60 mL/min/1.73m^2); Estimated GFR (Non-African Ame >60 (>=60 mL/min/1.73m^2); Free T3 1.86 pg/mL (2.18-3.98); Globulin 4.4 g/dL; Glucose 90 mg/dL (74-106); HDL Cholesterol 56 mg/dL (40-60); Potassium 4.3 mmol/L (3.5-5.1); Sodium 145 mmol/L (136-145); Thyroid Stimulating Hormone 0.185 uIU/mL (0.358-3.740); Total Protein 7.6 g/dL (6.4-8.2); Triglycerides 77 mg/dL (<=150); VLDL CHOLESTEROL 15.4 mg/dL
[2025-05-28 08:11] LABS: Glucose Urine UA NEGATIVE (NEGATIVE)
[2025-05-28 08:52] LABS: Iron 41.0 ug/dL (65.0-175.0)
[2025-05-28 09:52] LABS: Ferritin 61.0 ng/mL (26.0-388.0)
[2025-05-29 04:07] LABS: Vitamin B12 390 pg/mL (232-1245)
== END 2025-05-28 07:05 | disposition home or self-care (01) ==
LOC: LAB 07:04
PROVIDERS: PCP Family Medicine; Visit Provider Family Medicine
DX: E03.9 Hypothyroidism, unspecified (principal); F84.0 Autistic disorder; G40.909 Epilepsy, unspecified, not intractable, without status epilepticus; F79 Unspecified intellectual disabilities; R00.1 Bradycardia, unspecified; E78.00 Pure hypercholesterolemia, unspecified
CPT/HCPCS: 36415; 80053; 80061; 80164; 81003; 82306; 82607; 82728; 83540; 84439; 84443; 84481; 85025

== ENCOUNTER 2025-07-03 06:42 | Outpatient (OUT) | payer MEDICARE, MEDICAID, SELFPAY ==
--- OUTSIDE RECORDS SUMMARY | 2025-07-03 06:44 | XMS_ITS | Clinical Summary ---
[facility] Address [address], [address] [place] [address] Care Team Providers Care Career Discovery Teacher Name Role Phone Aileen Corcoran DDS Primary Care Provider [phone] Allergies Active AllergyReactionsCriticalityNoted DateCommentsClarithromycinOther (See Comments)Uixkrn6406/12/2018 Other reaction(s): Other: See Comments Severe abdominal cramps caregiver does not know Medications MedicationSigDispense QuantityRefillsLast FilledStart DateEnd DateStatus atorvastatin (LIPITOR) 10 MG tablet 01/21/2021ctive benztropine (COGENTIN) 0.5 MG tablet Take 1 tablet by mouth 2 times dailyActive bisacodyl (DULCOLAX) 10 MG suppository INSERT 1 SUPPOSITORY RECTALLY IF NO BM IN 5 DAYS CBEGNW1608/01/2023ctive Calcium Carb-Cholecalciferol (OYSTER SHELL CALCIUM W/D) 500-5 MG-MCG TABS tablet 09/13/2023ctive clomiPRAMINE (ANAFRANIL) 75 MG capsule Take 1 capsule by mouth yyefjkd8004/27/2022ctive cloNIDine (CATAPRES) 0.2 MG tablet Take 1 tablet by mouth 2 times daily04/27/2022ctive PROLIA 60 MG/ML SOSY SC injection INJECT SUBCUTANEOUSLY EVERY 6 XMVEOA1408/07/2023ctive famotidine (PEPCID) 20 MG tablet Take 1 tablet by mouth 2 times daily04/27/2022ctive fluticasone (FLONASE) 50 MCG/ACT nasal spray INSTILL 2 SPRAYS PER NOSTRIL EVERY MORNING FOR SINUS IMMTJZUTST82/16/2024ctive guanFACINE (TENEX) 1 MG tablet guanfacine 1 mg tabletActive levothyroxine (SYNTHROID) 112 MCG tablet Take 1 tablet by mouth daily04/27/2022ctive LINZESS 290 MCG CAPS capsule Take 1 capsule by mouth daily09/11/2023ctive lithium 300 MG capsule Take 1 capsule by mouth 3 times daily (with meals)04/27/2022ctive LORazepam (ATIVAN) 2 MG tablet Take 1 tablet by mouth every 6 hours as needed.04/11/2022ctive metoprolol tartrate (LOPRESSOR) 50 MG tablet TAKE ONE TABLET BY MOUTH TWICE DAILY QVOJBUESE53/22/2023ctive naltrexone (DEPADE) 50 MG tablet Take 1 tablet by mouth daily04/19/2022ctive QUEtiapine (SEROQUEL) 200 MG tablet Take 1 tablet by mouth 2 times daily04/27/2022ctive risperiDONE (RISPERDAL) 3 MG tablet Take 1 tablet by mouth 2 times daily04/27/2022ctive sertraline (ZOLOFT) 100 MG tablet Take 1 tablet by mouth daily04/27/2022ctive benzonatate (TESSALON) 100 MG capsule Take 1 capsule by mouth 3 times daily as neededActive buPROPion (WELLBUTRIN SR) 100 MG extended release tablet TAKE ONE TABLET BY MOUTH DAILY IN THE BVKDYQK4004/15/2024ctive divalproex (DEPAKOTE) [address] tablet Take 4 tablets by mouth 2 times dailyActive CHEST CONGESTION RELIEF 400 MG tablet Take 1 tablet by mouth 2 times daily04/15/2024ctive loratadine (CLARITIN) 10 MG tablet Take 1 tablet by mouth dailyActive montelukast (SINGULAIR) 10 MG tablet TAKE ONE TABLET BY MOUTH DAILY SINGULAIRActive mupirocin (BACTROBAN) 2 % ointment Apply 1 Application topicallyActive ondansetron (ZOFRAN) 4 MG tablet Take 1 tablet by mouth every 8 hours as neededActive polyethylene glycol (MIRALAX) 17 GM/SCOOP POWD powder TAKE 17G WITH LIQUID BY MOUTH DAILY IN THE IWIFAIF4503/26/2024ctive Active Problems ProblemNoted DateDiagnosed DateBipolar sifidxly95/01/6196Keeobv38/01/2024Sinus mpwyjfyqeap04/01/2024 Social History Tobacco UseTypesPacks/DayYears UsedDateSmoking Tobacco: NeverSmokeless Tobacco: Never Tobacco Cessation:Counseling Given: Not Answered Sex and Gender InformationValueDate RecordedSex Assigned at BirthNot on file Legal KhyIxbk79/28/2023 2:51 PM ESTGender IdentityNot on fileSexual Orientation Not on file Last Filed Vital Signs Vital SignReadingTime TakenCommentsBlood Dizmlgcg040/7009 11:53 AM EDT Qsheh8957/03/2024 11:53 AM EDTTemperature--Respiratory Rxgo716304/22/2024 11:53 AM EDTOxygen Baqhpntklk71%04/22/2024 11:53 AM EDTInhaled Oxygen Concentration-- Bofumu77.8 kg (198 lb)04/22/2024 11:53 AM KOAKyajph561.6 cm (5' 6 )04/22/2024 11:53 AM EDTBody Mass Index31.9604/22/2024 11:53 AM EDT Plan of Treatment Health MaintenanceDue DateLast RcteVbptnmtrUlcqhq37/28/2002Depression Monitoring 2004Varicella vaccine (1 of 2 - 13+ 2-dose series)2005HIV screen 2007Hepatitis C ntjtci8508/16/2010Hepatitis B vaccine (1 of 3 - 19+ 3-dose series)2011nnual Wellness Visit (Medicare)09/18/2023Flu vaccine (#1) , 06/07/2022, 06/15/2021, Additional history existsCOVID-19 Vaccine ( season), 06/07/2022, 06/15/2021, Additional history existsDTaP/Tdap/Td vaccine (2 - Td or Tdap)07/10/2029 07/10/2019HPV vaccine (No Doses Required)CompletedHepatitis A vaccineAged OutNo longer eligible based on patient's age to complete this topicHib vaccineAged Out No longer eligible based on patient's age to complete this topicMeningococcal (ACWY) vaccineAged OutNo longer eligible based on patient's age to complete this topicMeningococcal B vaccineAged OutNo longer eligible based on patient's age to complete this topicPneumococcal 0-49 years VaccineAged OutNo longer eligible based on patient's age to complete this topicPolio vaccineAged OutNo longer eligible based on patient's age to complete this topic Insurance Care Teams Team MemberRelationshipSpecialtyStart DateEnd Date Aileen Corcoran DDS [address] [place], [place] [id number] [phone] PCP - GeneralDentistry09/21/23
--- OUTSIDE RECORDS SUMMARY | 2025-07-03 06:44 | XMS_ITS | Clinical Summary ---
Author Organization [facility] Address [address] [place] [address] Care Team Providers Care Anvil Worker Name Role Phone Unavailable Primary Care Provider Unavailabl e Allergies Active AllergyReactionsCriticalityNoted DateCommentsClarithromycinOther: See GenxzyqxWwkkgv95/15/2022 caregiver does not know Medications MedicationSigDispense QuantityRefillsLast FilledStart DateEnd DateStatus atorvastatin (LIPITOR) 10 mg tablet 04/27/2022ctive clomiPRAMINE (ANAFRANIL) 75 mg capsule 04/27/2022ctive famotidine (PEPCID) 20 mg tablet 04/27/2022ctive fluticasone (FLONASE) 50 mcg/actuation nasal spray INSTILL 2 SPRAYS PER NOSTRIL EVERY MORNING FOR SINUS HUASZGBDYO21/02/2022ctive guanFACINE (INTUNIV ER) 4 mg Tb24 Take 4 mg by mouth once daily.04/27/2022ctive levothyroxine (SYNTHROID) 112 mcg tablet Take 112 mcg by mouth once daily.04/27/2022ctive LINZESS 290 mcg capsule Take 290 mcg by mouth once daily.04/25/2022ctive lithium carbonate (ESKALITH) 300 mg capsule Take 300 mg by mouth two times a day. 08, ctive LORazepam (ATIVAN) 2 mg tab TAKE ONE TABLET BY MOUTH 3 TIMES DAILY ATFDQG6504/11/2022ctive MUCUS RELIEF ER 600 mg 12 hr tablet Take 600 mg by mouth twice daily.04/19/2022ctive naltrexone (TREXAN) 50 mg tablet Take 50 mg by mouth two times a day.04/19/2022ctive OYSTER SHELL CALCIUM-VITAMIN D 500 mg-5 mcg (200 unit) per tablet Take 1 tablet by mouth twice daily.04/19/2022ctive polyethylene glycol 3350 (MIRALAX, GLYCOLAX) 17 gram/dose powder Take 17 g by mouth once daily.03/21/2022ctive Sennosides 8.6 mg cap Take 8.6 mg by mouth as needed.Active risperiDONE (RISPERDAL) 3 mg tablet Take 3 mg by mouth two times a day. 08, ctive sertraline (ZOLOFT) 100 mg tablet Take 50 mg by mouth once daily. Take with 50 mg zoloft in the morning.04/27/[address] (DEPAKOTE) 125 mg EC tablet Take 125 mg by mouth two times a day. 1999Active loratadine 10 mg cap Take 10 mg by mouth daily at bedtime.Active montelukast (SINGULAIR) 10 mg tablet Take 10 mg by mouth daily at bedtime.Active denosumab (PROLIA) 60 mg/mL Inject 60 mg subcutaneously one time only.02/14/2023ctive sertraline (ZOLOFT) 50 mg tablet Take 50 mg by mouth once daily. Take with 100mg zoloft in the morningActive QUEtiapine (SEROQUEL) 100 mg tablet Take 1 tablet by mouth two times a day. 60 tablet 11/02/2023ctive cloNIDine HCl (CATAPRES) 0.2 mg tablet Take 1 tablet by mouth three times a day. 0800, 1599, 1999 Please check blood pressure prior to administration and hold for systolic blood pressure < 2197611/07/2023ctive Active Problems ProblemNoted DateDiagnosed DateOropharyngeal jrwdsuvyl43/19/2024Epilepsy 11/06/2023S/P dlxajlcscmh39/18/2024cute postoperative pain11/05/2023Obesity, Class I, BMI 30-34.9011/02/2023ipolar nfuddnuv26Hypothyroidism Obsessive-compulsive fdcjjzrc78Moderate intellectual jwnsjttcuc72evelopmental non-verbal disorder Resolved Problems ProblemNoted DateDiagnosed DateResolved DateSBO (small bowel obstruction) / Social History Tobacco UseTypesPacks/DayYears UsedDateSmoking Tobacco: Unknown Tobacco Cessation:Counseling Given: Not Answered Alcohol UseStandard Drinks/WeekCommentsNever0 (1 standard drink = 0.6 oz pure alcohol)[facility] UtilitiesAnswerDate RecordedIn the past 12 months has the electric, gas, oil, or water company threatened to shut off services in your home?Patient unable to lylams4710/29/2023Housing Stability Vital SignAnswerDate RecordedIn the last 12 months, was there a time when you were not able to pay the mortgage or rent on time?Patient unable to oeewyg3210/29/2023Number of Places Lived in the Last YearNot on file10/29/2023In the last 12 months, was there a time when you did not have a steady place to sleep or slept in ashelter (including now)? Patient unable to prbzoy2310/29/2023Sex and Gender InformationValueDate Recorded Sex Assigned at BirthNot on fileLegal NhyWwsk2903/21/2022 9:42 AM EDTGender IdentityNot on fileSexual OrientationNot on file Last Filed Vital Signs Vital SignReadingTime TakenCommentsBlood Xtejruxh696/7604 1:07 PM EDT Ivupw7222 1:07 PM RKTGvuwysxbwpa02.4 ??C (97.5 ??F)11/28/2023 9:48 AM EDTRespiratory Xqoc083311/07/2023 8:04 AM EDTOxygen Tldatxgrvn45%11/07/2023 9:39 AM EDTInhaled Oxygen Concentration--Sndexg59.5 kg (204 lb)12/03/2023 1:07 PM EDT Tgmjoz019.6 cm (5' 6 )12/03/2023 1:07 PM EDTBody Mass Index32.9304 1:07 PM EDT Plan of Treatment Health MaintenanceDue DateLast DoneCommentsAnnual PCP Team Chronic Disease Visit 2010nxiety Nmrhnyorr82/28/2010Depression Ywgcsnvht62/28/2010HIV Screening 2010Hepatitis C Dlodkpgcx21/28/2010Hepatitis B Vaccine (1 of 3 - 19+ 3- dose series)2011Medicare Annual Wellness Visit02/17/2013HPV Vaccine (1 - 3-dose SCDM series)2019Covid-19 Vaccine ( season)2025 06/06/2023, 06/07/2022, 06/15/2021, Additional history existsInfluenza Vaccine (#1), 06/07/2022, 06/15/2021, Additional history exists DTaP,Tdap,Td Vaccine (2 - Td or Tdap) Insurance [address] [place] [address]
--- OUTSIDE RECORDS SUMMARY | 2025-07-03 06:44 | XMS_ITS | Clinical Summary ---
Author Organization [facility] Address [address] [facility] [place] [address] Care Team Providers Care Pointing Machine Operator Name Role Phone Aileen Corcoran DDS Unavailable [phone] Ling Coffman RAISED PRINTER-ERP MANAGER Unavailable [phone] Source Comments The following information is NOT included in Care Everywhere downloads:Psychiatric notes, ECG results, Cardiac Rehab notes, Pulmonary Function notes, data from [employer] (includes but not limited toPregnancy data,audiograms, eye exams, pre-surgical evaluation notes, well-child exam data).[facility] Allergies Active AllergyReactionsCriticalityNoted DateCommentsClarithromycinOther 06/12/2018 Severe abdominal cramps Medications MedicationSigDispense QuantityRefillsLast FilledStart DateEnd DateStatus levothyroxine (SYNTHROID, LEVOTHROID) 112 MCG tablet Take 112 mcg by mouth daily.Active lithium 300 MG capsule Take 300 mg by mouth 3 times daily (with meals).Active lorazepam (ATIVAN) 2 MG tablet Take 2 mg by mouth every 6 hours as needed for Anxiety.Active naltrexone (DEPADE) 50 MG tablet Take 50 mg by mouth daily.Active cloNIDine (CATAPRES) 0.2 MG tablet Take 0.2 mg by mouth 2 times daily.Active docusate sodium (COLACE) 100 MG capsule Take 100 mg by mouth 2 times daily.Active famotidine (PEPCID) 20 MG tablet Take 20 mg by mouth 2 times daily.Active QUEtiapine (SEROQUEL) 200 MG tablet Take 200 mg by mouth 2 times daily.Active risperiDONE (RISPERDAL) 3 MG tablet Take 3 mg by mouth 2 times daily.Active Sennosides (SENNA) 8.6 MG CAPS Take by mouth.Active sertraline (ZOLOFT) 100 MG tablet Take 100 mg by mouth daily.Active FLUTICASONE PROPIONATE HFA INHALATION Inhale by mouth.Active guanfacine (TENEX) 1 MG tablet guanfacine 1 mg tabletActive Linzess 290 MCG CAPS capsule 07/09/2020Active atorvastatin (LIPITOR) 10 MG tablet 01/21/2021ctive metoprolol (LOPRESSOR) 50 MG tablet 01/21/2021ctive Mucus Relief 600 MG SR tablet Take 600 mg by mouth 2 times daily.01/13/2021ctive Calcium Carbonate-Vitamin D (Oyster Shell Calcium/D) 500-200 MG-UNIT TABS Take 1 Tablet by mouth 2 times daily.01/13/2021ctive GuanFACINE HCl (TENEX) 4 MG er tablet 01/21/2021ctive divalproex (DEPAKOTE SPRINKLE) 125 MG CSDR capsule 125 mg 2 times daily.12/12/2023ctive naloxone 4 mg/0.1 mL nasal liquid Use 1 [place]arrison in one nostril (alternate sides) as needed for Drug Overdose for up to 1 dose. Every 2-3 mins. until help arrives. 2 Each ctive bisacodyl (DULCOLAX) 10 MG suppository Insert 10 mg in the rectum daily.08/23/2023ctive montelukast (SINGULAIR) 10 MG tablet Take 10 mg by mouth daily.Active POLYETHYLENE GLYCOL EXTERNAL Take 17 g by mouth daily.08/23/2023ctive chlorhexidine (Peridex) 0.12 % oral solution Swish and expectorate twice a day. Do not swallow 473 mL 12/28/2023 11:19 AM EDT12/28/2023ctive ibuprofen (MOTRIN) 600 MG tablet Take 1 Tablet by mouth every 6 hours as needed for Pain. 56 Tablet 12/28/2023 11:19 AM EDT12/28/2023ctive acetaminophen (TYLENOL) 500 MG tablet Take 1 Tablet by mouth every 6 hours as needed for Pain or Fever. 56 Tablet 12/28/2023 11:19 AM EDT12/28/2023ctive Active Problems ProblemNoted DateDiagnosed DateEpileptic hhqcxyn7311/06/2023Sinus bradycardia 4Dental decay12/16/2020 Overview (12/16/2020): Added automatically from request for surgery [id number] Mucocele of lower lip10/16/2019 Overview (10/16/2019): Added automatically from request for surgery [id number] Autistic lxkqcirs55/28/2019Bipolar puhozoew69/28/1709Wojvfhaxecxhdl95/28/2019 Moderate intellectual jfwqjoxook35/28/2019Obsessive-compulsive disorder 09/16/2018Chronic jyvuomzokbpd68/28/2019Skin vqkiajni45/28/2019Dental caries 06/11/2018 Overview (06/11/2018): Added automatically from request for surgery [id number] Resolved Problems ProblemNoted DateDiagnosed DateResolved GpwqIvvnqc44/06/202305/05/2024 Immunizations ImmunizationAdministration DatesNext DueInfluenza, injectable, quadrivalent, preservative (MGE=021)06/13/2017Influenza, injectable, quadrivalent, preservative free (EZM=605)06/15/2021,05/26/2020,06/13/2019,05/29/2018, 06/10/2015Influenza, injectable, trivalent, preservative (QAH=110)06/12/2012, 06/15/2010,05/11/2009,06/15/2008Influenza, injectable, trivalent, preservative free (AIV=685)05/03/2011Influenza, novel G1E6-00, injectable, preservative-free (QAC=145)07/07/2009Influenza, whole virus (CVX=16)06/11/2008Tdap (YJK=452) 07/10/2019 Social History Tobacco UseTypesPacks/DayYears UsedDateSmoking Tobacco: Unknown Tobacco Cessation:Counseling Given: Not Answered Alcohol UseStandard Drinks/WeekCommentsNever0 (1 standard drink = 0.6 oz pure alcohol)AUDIT-CAnswerDate RecordedQ1: How often do you have a drink containing alcohol?Never07/13/2020Average Number of DrinksNot on file07/13/2020Frequency of Binge DrinkingNot on file07/13/2020Substance UseTypesUse/WeekCommentsNeverSex and Gender InformationValueDate RecordedSex Assigned at BirthNot on fileLegal UroEkbs14/01/2017 9:36 AM ESTGender IdentityNot on fileSexual OrientationNot on file Last Filed Vital Signs Vital SignReadingTime TakenCommentsBlood Sdamhfle340/8905 2:30 PM EDT Kbrex453012/28/2023 2:30 PM IERBzytnfniwcw46.3 ??C (97.3 ??F)12/28/2023 1:52 PM EDTRespiratory Lhsh728712/28/2023 2:30 PM EDTOxygen Kcyxutbdmn958%12/28/2023 2:30 PM EDTInhaled Oxygen Concentration--Eedjcc06.4 kg (197 lb)12/28/2023 9:15 AM EDT Hqguyb308.6 cm (5' 6 )12/28/2023 9:15 AM EDTBody Mass Index31.805 9:15 AM EDT Plan of Treatment Health MaintenanceDue DateLast VglwDxwpclowWDL1992HIV Test2007 Hepatitis C Vfopkxsg91/28/2010Hepatitis A (HAV) Vaccine (optional start 19+ years)2011Hepatitis B (HBV) Vaccine (1 of 3 - 19+ 3-dose series)2011 Annual Wellness Visit (G0438)02/17/2014HPV Vaccine (optional start 27-45 years) 2019Dental Oral Exam/4Dental Oaceepdkcdl98/11/2024 12/28/2023ental X-Ray: Mymfyomul78/OVID-19 Vaccine (2024- season)/, 06/15/2021, 09/21/2020, Additional history existsInfluenza Vaccine (#1)/, 05/26/2020, 06/13/2019, Additional history existsTetanus (Td or Tdap) Sdpvkns99/21/22385209/09/2018 Shingles (RZV) Vaccine (1 of 2)2042Tdap LlhysenPvmlynagp35/21/2019 Pneumococcal Vaccine(s)Aged OutNo longer eligible based on patient's age to complete this topic Procedures Procedure NamePriorityDate/TimeAssociated DiagnosisCommentsPROPHY ADULT 14 & ARKTWGezlcks07/10/2024 12:00 AM EDTCOMPREHENSIVE UKWAFuinluy55/10/2024 12:00 AM EDTfrom Last 3 Months or Most Recently Relevant to Health Maintenance Insurance * Guarantor: Erik Cohen TypeRelation to PatientDate of BirthPhone Billing WjseejaWtalrxfhazapvTwlc[address] [place] [address] Care Teams Team MemberRelationshipSpecialtyStart DateEnd Date Aileen Corcoran DDS [address] [place] [address] ResidentDentistry08/20/20 Ling Coffman APRN-CNP [address] [place] [address] APNAnesthesiology01/19/24
--- OUTSIDE RECORDS SUMMARY | 2025-07-03 06:44 | XMS_ITS | Clinical Summary ---
Author Organization [facility] Address [address] [place] [address] Care Team Providers Care Car Rental Service Attendant Name Role Phone Unavailable Primary Care Provider Unavailabl e Allergies Active AllergyReactionsCriticalityNoted PlazHqwhhwhwAmfyiyhucnchba65/23/2024 Severe stomach cramps Medications MedicationSigDispense QuantityRefillsLast FilledStart DateEnd DateStatus atorvastatin (Lipitor) 10 MG tablet Take 10 mg by mouth DailyActive bisacodyl (Fleet Bisacodyl) 10 MG/30ML enema Insert 10 mg into the rectum 1 (one) timeActive guaiFENesin (Humibid 3) 400 MG tablet Take 400 mg by mouth every 4 (four) hoursActive cloNIDine (Catapres) 0.2 MG tablet Take 0.2 mg by mouth in the morning and 0.2 mg in the evening and 0.2 mg before bedtime.Active divalproex (Depakote) 125 MG EC tablet Take 4 tablets by mouth in the morning and 4 tablets before bedtime. Do not crush, chew, or split.Active famotidine (Pepcid) 20 MG tablet Take by mouthActive fluticasone (Flonase) 50 MCG/ACT nasal spray Administer 1 spray into each nostril Daily Shake gently. Before first use, prime pump. After use, clean tip and replace cap.Active guanFACINE (Tenex) 2 MG tablet Take 2 tablets by mouth in the morning.Active levothyroxine (Tirosint) 112 MCG capsule Take by mouth Daily before mealsActive linaCLOtide (Linzess) 290 MCG capsule Take 290 mcg by mouth in the morning. Take before meals. Do not crush or chew. Active lithium 300 MG capsule Take 300 mg by mouth in the morning and 300 mg at noon and 300 mg in the evening. Take with meals.Active loratadine (Claritin) 10 MG tablet Take by mouthActive LORazepam (Ativan) 2 MG tablet Take 2 mg by mouth every 8 (eight) hours if needed for anxietyActive montelukast (Singulair) 10 MG tablet Take 10 mg by mouth at bedtimeActive mupirocin (Bactroban) 2 % ointment Apply 1 application topically in the morning and 1 application in the evening and 1 application before bedtime.Active naltrexone (Depade) 50 MG tablet Take 2 tablets by mouth in the morning and 2 tablets before bedtime.Active denosumab (Prolia) 60 MG/ML solution prefilled syringe Inject 60 mg under the skin 1 (one) timeActive QUEtiapine (SEROquel) 100 MG tablet Take 100 mg by mouth in the morning and 100 mg before bedtime.Active risperiDONE (RisperDAL) 3 MG tablet Take 3 mg by mouth in the morning and 3 mg before bedtime.Active sertraline (Zoloft) 50 MG tablet Take 50 mg by mouth in the morning.Active sertraline (Zoloft) 100 MG tablet Take 100 mg by mouth in the morning.Active benzonatate (Tessalon) 100 MG capsule Take 100 mg by mouth 3 (three) times a day as needed for cough Do not crush or chew.Active ondansetron (Zofran) 4 MG tablet Take 1 tablet by mouth every 8 (eight) hours if needed for nausea or vomiting Active buPROPion SR (Wellbutrin SR) 200 MG 12 hr tablet Take 200 mg by mouth in the morning and 200 mg before bedtime.Active Calcium Carb-Cholecalciferol (Oyster Shell Calcium w/D) 500-5 MG-MCG tablet Take 1 tablet by mouth in the morning and 1 tablet before bedtime.11/25/2024 Active Active Problems ProblemNoted DateDiagnosed DateAlteration of unkhocfgz17/11/2024 Social History Tobacco UseTypesPacks/DayYears UsedDateSmoking Tobacco: NeverSmokeless Tobacco: Never Tobacco Cessation:Counseling Given: Not Answered Sex and Gender InformationValueDate RecordedSex Assigned at BirthNot on file Legal VatTftg4512/18/2022 8:32 PM EDTGender IdentityNot on fileSexual Orientation Not on file Last Filed Vital Signs Vital SignReadingTime TakenCommentsBlood Dvobzmkr589/8204 12:32 PM EDT Pulse--Temperature--Respiratory Qdyo9103 10:33 AM EDTOxygen Saturation-- Inhaled Oxygen Concentration--Ojkkmg73.8 kg (198 lb)12/02/2024 12:32 PM EDT Qikwkh359.6 cm (5' 6 )12/02/2024 12:32 PM EDTBody Mass Index31.9612/02/2024 12:32 PM EDT Plan of Treatment Not on file Insurance
--- OUTSIDE RECORDS SUMMARY | 2025-07-03 06:44 | XMS_ITS | Clinical Summary ---
Author Organization [facility] Address [address] [place] [address] Phone Care Team Providers Care Pulmonologist Intensivist Name Role Phone Unavailable Primary Care Provider Unavailabl e Allergies Active AllergyReactionsCriticalityNoted DateCommentsClarithromycinNausea and Xgpddhke87/08/2025 Medications MedicationSigDispense QuantityRefillsLast FilledStart DateEnd DateStatus Atorvastatin 10 MG tablet TAKE ONE TABLET BY MOUTH DAILY OCDXDUJ86/30/2025Active buPROPion 150 MG tablet SR TAKE ONE TABLET BY MOUTH TWICE A DAY SLTEPCHXJK56/30/2025Active cloNIDine 0.2 MG tablet TAKE ONE TABLET BY MOUTH TWICE A DAY VSLKPRDM15/30/2025Active Divalproex Sodium 125 MG Capsule Delayed Release Sprinkle TAKE FOUR CAPSULES BY MOUTH THREE TIMES A DAY DEPAKOTE DR5Active Emollient (Aquaphor Adv Therapy Healing) 41 % Ointment APPLY INTRANASALLY BILATERALLY TWICE A DAY5Active faMOTIdine 20 MG tablet TAKE ONE TABLET BY MOUTH TWICE A DAY BCNQFJ895Active fluticasone 50 MCG/ACT Suspension nasal spray INSTILL 2 SPRAYS PER NOSTRIL EVERY MORNING FOR SINUS CONGESTION FLONASE 5Active GuanFACINE HCl 4 MG Tab SR 24 HR TAKE ONE TABLET BY MOUTH EVERY MORNING BOIOQVR96/30/2025Active levothyroxine 112 MCG tablet TAKE ONE TABLET BY MOUTH DAILY KXXLMSQJQ98/20/2024Active Linzess 290 MCG capsule Take 1 capsule by mouth daily.5Active [place] 300 MG capsule TAKE ONE CAPSULE BY MOUTH TWICE A DAY PYSTKNNM40/30/2025Active Loratadine 10 MG tablet TAKE ONE TABLET BY MOUTH DAILY VONKPNRQ84/30/2025Active LORazepam 2 MG tablet TAKE ONE TABLET BY MOUTH 3 TIMES DAILY WIXTMH185Active Montelukast 10 MG tablet TAKE ONE TABLET BY MOUTH DAILY ICRSQCJDL82/30/2025Active Naltrexone 50 MG tablet TAKE ONE TABLET BY MOUTH TWICE A DAY REVIA5Active Polyethylene Glycol 3350 (PEG 3350) 17 GM/SCOOP Powder 5Active QUEtiapine 100 MG tablet TAKE ONE TABLET BY MOUTH TWICE A DAY PISORPOO61/30/2025Active risperiDONE 3 MG tablet TAKE ONE TABLET BY MOUTH TWICE DAILY BTVVDCMNY06/30/2025tive Sodium chloride 0.65 % Solution nasal spray INSTILL 2 SPRAYS BILATERALLY 3 TIMES DAILY PKRGRTUOOEMK38/21/2025Active Active Problems No known active problems Social History Tobacco UseTypesPacks/DayYears UsedDateSmoking Tobacco: NeverSmokeless Tobacco: Never Tobacco Cessation:Counseling Given: Not Answered Alcohol UseStandard Drinks/WeekCommentsNever0 (1 standard drink = 0.6 oz pure alcohol)Sex and Gender InformationValueDate RecordedSex Assigned at BirthNot on fileLegal KanRiey5701/26/2025 4:19 PM EDTGender IdentityNot on fileSexual OrientationNot on file Plan of Treatment Health MaintenanceDue DateLast DoneCommentsDental Oral Exam1992Dental Cwflovgmgcn1992HEPATITIS C VIRUS ZTCXGGWRK54/28/6729GKP1992HIV SCREENING MJRHIDDLGH29/28/2007HEP B VACCINE (1 of 3 - 19+ 3-dose series) 2011HPV VACCINE (1 - 3-dose SCDM series)2019COVID-19 VACCINE ( season)2025INFLUENZA VACCINE (#1)510/, 06/06/2023, 06/07/2022, Additional history yszhbbHIYVGQC31/21/86725809/09/2018TDAP (ADULT) Wlxatcafo14/21/2019PNEUMOCOCCAL VACCINE SERIESAged OutNo longer eligible based on patient's age to complete this topic Insurance
[2025-07-03 07:29] LABS: Hematocrit 40.5 % (42.0-54.0); Hemoglobin 13.2 g/dL (14.0-18.0); Immature Granulocytes Abs Auto 0.05 10^3/uL (0.00-0.03); Immature Granulocytes Pct Auto 0.5 % (0.0-0.5); Lymphocytes Absolute Auto 2.5 10^3/uL (1.2-3.8); Mean Corpuscular HGB Conc 32.6 g/dL (29.9-35.2); Mean Corpuscular Hemoglobin 28.9 pg (25.9-34.0); Mean Corpuscular Volume 88.8 fL (80.0-94.0); Platelet Count 147 10^3/uL (150-450); Red Blood Count 4.56 10^6/uL (4.70-6.10); White Blood Count 9.9 10^3/uL (4.0-11.0)
[2025-07-03 08:27] LABS: Alanine Aminotransferase 23 U/L (16-63); Albumin Globulin Ratio 0.8; Albumin Level 3.5 g/dL (3.4-5.0); Alkaline Phosphatase 81 U/L (46-116); Anion Gap 13.1; Aspartate Amino Transferase 21 U/L (15-37); Blood Urea Nitrogen 14.0 mg/dL (7.0-18.0); Calcium 10.0 mg/dL (8.5-10.1); Carbon Dioxide 30.4 mmol/L (21.0-32.0); Chloride 106 mmol/L (98-107); Cholesterol 141 mg/dL (<=200); Estimated GFR (African America >60 (>=60 mL/min/1.73m^2); Estimated GFR (Non-African Ame 58 (>=60 mL/min/1.73m^2); Free T3 1.82 pg/mL (2.18-3.98); Globulin 4.2 g/dL; Glucose 85 mg/dL (74-106); HDL Cholesterol 49 mg/dL (40-60); NT Pro B Type Natriuretic Pept 200.0 pg/mL (<=450.0); Potassium 4.5 mmol/L (3.5-5.1); Sodium 145 mmol/L (136-145); Thyroid Stimulating Hormone 1.223 uIU/mL (0.358-3.740); Total Protein 7.7 g/dL (6.4-8.2); Triglycerides 99 mg/dL (<=150); VLDL CHOLESTEROL 19.8 mg/dL
[2025-07-04 04:07] LABS: FSH 5.0 mIU/mL (1.5-12.4)
== END 2025-07-03 06:43 | disposition home or self-care (01) ==
LOC: LAB 06:42
PROVIDERS: PCP Family Medicine; Visit Provider Family Medicine
DX: E03.9 Hypothyroidism, unspecified (principal); E78.00 Pure hypercholesterolemia, unspecified; F31.9 Bipolar disorder, unspecified; K59.00 Constipation, unspecified; M81.0 Age-related osteoporosis without current pathological fracture; G40.909 Epilepsy, unspecified, not intractable, without status epilepticus; Z79.899 Other long term (current) drug therapy
CPT/HCPCS: 36415; 80053; 80061; 82306; 82533; 83001; 83002; 83003; 83880; 84146; 84402; 84403; 84439; 84443; 84481; 85025